=== PATIENT | female | born 1940 | race Caucasian/White ===

== ENCOUNTER → 2017-07-28 11:01 | Outpatient (CLI) | payer MEDICARE, SELFPAY ==
--- NOTE | 2017-07-28 11:28 | RAD_ITS ---
STUDY: X-RAY - LUMBAR SPINE REASON FOR EXAM: Female, 77 years old. Low back pain TECHNIQUE: 5 view(s) of the lumbar spine were obtained. COMPARISON: 11.01.12 FINDINGS: Normal lumbar lordosis. There is scoliosis. There is a normal alignment of the vertebrae. Stool throughout the colon. There is multilevel endplate spondylosis of the lumbar vertebrae. There is multi-level degenerative disc disease with multi-level disc space narrowing. There are atherosclerotic vascular calcifications. The soft tissue structures are unremarkable. RAD/L/S Spine Min 4 Views IMPRESSION: Degenerative changes of the spine, as detailed above. Electronically Signed: Jose D Levi MD at 16:56 EST , Service support ,
--- NOTE | 2017-07-28 11:28 | RAD_ITS ---
STUDY: X-RAY CHEST REASON FOR EXAM: Female, 77 years old. DYSPNEA TECHNIQUE: Frontal and lateral views of the chest. COMPARISON: 09/07/2012 FINDINGS: Chronic appearing increased interstitial lung markings. Bilateral apical fibrosis. Scoliosis of the thoracic spine. There is no demonstrated pleural abnormality. Normal heart size. Normal mediastinum and queenie. Normal visualized pulmonary arteries. There is atherosclerotic calcification of the aortic arch with tortuosity. There are diffuse demineralization changes of the visualized thoracic spine. There is degenerative osteoarthritis of the bilateral shoulders. There is no demonstrated abnormality of the visualized soft tissue structures of the upper abdomen. RAD/Chest PA and Lateral IMPRESSION: There are no acute findings. Electronically Signed: Jose D Levi MD at 16:56 EST , Service support ,
[2017-07-28 12:02] LABS: Absolute Lymphocyte Count 1.57 X10^3/ul (0.83-4.51); Absolute Neutrophil Count 2.3 X10^3/uL (2.0-7.7); Basophil# 0.05 X10^3/uL; Eosinophil# 0.21 X10^3/uL; Eosinophils% 4.3 % (0-5); Hematocrit 33.6 % (37-47); Lymphocyte # 1.57 X10^3/ul (4.0); Lymphocyte % 32.1 % (19-41); Mean Corp Hgb Conc 29.8 g/gl (32-36); Mean Corpuscular Volume 80.8 fL (81-99); Monocyte# 0.78 X10^3/uL; Neutrophil # 2.28 X10^3/uL (2.7-7.7); Neutrophil % 46.6 % (47-70); Platelet Count 447 K/mm3 (150-450); RBC Distribution Width CV 14.2 % (11.6-14.6); RBC Distribution Width SD 41.7 fl (35.1-43.9); Red Blood Count 4.16 M/mm3 (4.2-5.4); White Blood Count 4.9 K/mm3 (4.4-11.0)
[2017-07-28 12:03] LABS: POSITIVE COUNT NO; POSITIVE DIFFERENTIAL NO; POSITIVE MORPHOLOGY NO
[2017-07-28 12:42] LABS: Anion Gap 5 (5-15); BUN 11 mg/dL (7-18); BUN/Creat Ratio 16.4 RATIO (10-20); Calcium,Total 8.9 mg/dL (8.5-10.1); Chloride 105 mmol/L (98-107); Creatinine, Serum 0.67 mg/dL (0.55-1.02); EST Glomerular Filtration Rate 91 mL/min (>60); Est Glom Filt Rate - Afr Amer 110 mL/min (>60); Glucose 91 mg/dL (74-106); Magnesium 2.4 mg/dL (1.6-2.6); Potassium 3.4 mmol/L (3.5-5.1); Sodium Level 141 mmol/L (136-145); T4 Free Direct 1.06 ng/dL (0.76-1.46); Thyroid Stim Hormone (TSH) 1.62 uIU/mL (0.358-3.74)
[2017-07-28 13:41] LABS: Ferritin 6 ng/mL (8-252); Iron 19 ug/dL (50-170)
[2017-07-29 09:06] LABS: Vitamin D,25 Hydroxy 23.9 ng/mL (19.95-100.01)
== END ==
PROVIDERS: Family Provider Family Medicine; PCP Family Medicine; Visit Provider Family Medicine
DX: S32.000A Wedge compression fracture of unspecified lumbar vertebra, initial encounter for closed fracture (principal); R55 Syncope and collapse; R06.00 Dyspnea, unspecified; R00.2 Palpitations; M81.0 Age-related osteoporosis without current pathological fracture; D64.9 Anemia, unspecified
CPT/HCPCS: 36415; 71046; 72110; 80048; 82306; 82728; 83540; 83735; 84439; 84443; 85025

== ENCOUNTER → 2017-08-21 13:53 | Outpatient (CLI) | payer MEDICARE, SELFPAY ==
[2017-08-21 15:50] LABS: Absolute Lymphocyte Count 1.66 X10^3/ul (0.83-4.51); Basophil# 0.04 X10^3/uL; Basophil% 0.7 % (0-1); Eosinophil# 0.13 X10^3/uL; Eosinophils% 2.4 % (0-5); Hematocrit 32.4 % (37-47); Hemoglobin 9.4 g/dl (12.0-15.0); Lymphocyte # 1.66 X10^3/ul (4.0); Lymphocyte % 30.1 % (19-41); Mean Corpuscular Hgb 22.9 pg (27.0-32.0); Mean Corpuscular Volume 78.8 fL (81-99); Mean Platelet Vol. 9.4 fl (6.2-12.0); Monocyte# 0.64 X10^3/uL; Monocyte% 11.6 % (0-10); Neutrophil # 3.03 X10^3/uL (2.7-7.7); Platelet Count 363 K/mm3 (150-450); RBC Distribution Width CV 15.3 % (11.6-14.6); RBC Distribution Width SD 43.9 fl (35.1-43.9); Red Blood Count 4.11 M/mm3 (4.2-5.4); White Blood Count 5.5 K/mm3 (4.4-11.0)
[2017-08-21 15:56] LABS: POSITIVE COUNT NO; POSITIVE DIFFERENTIAL NO; POSITIVE MORPHOLOGY NO
[2017-08-21 16:01] LABS: Ferritin 6 ng/mL (8-252); Iron 19 ug/dL (50-170)
== END ==
PROVIDERS: Family Provider Family Medicine; PCP Family Medicine; Visit Provider Family Medicine
DX: D50.9 Iron deficiency anemia, unspecified (principal)
CPT/HCPCS: 36415; 82728; 83540; 85025

== ENCOUNTER 2017-11-12 09:00 | Outpatient (RCR) | payer MEDICARE, SELFPAY ==
--- NOTE | 2017-09-10 13:33 | HP.PTEVAL ---
Patient's Visit Information SAPNA GASCA is a 77 year old F referred to Physical Therapy by MD IRMA Terrazas with a diagnosis of CHRONIC LBP. Date of Evaluation: 09/10/17 Physical Therapist: Misti Camilo - Visit Plan Frequency: 2-3x /Week Duration: 4-6 Weeks Plan: *OSTEOPOROSIS*. NEXT 2 VISITS ON [place] FOR LOW BACK US AND STM TREATMENTS WITH INTRO TO DLS TOLERATED AND POSTURE CORRECTION/STRENGTHENING, INSTRUCTION IN APPROPRIATE BODY MECHANICS AND ACTIVITY MODIFICATIONS. DLS STARTING WITH A NEUTRAL SPINE PROGRESSING ROM TOLERATED. BEATRICE LE ROM, STRETCHING AND STRENGTHENING. HEP INSTRUCTION. AQUATIC THERAPY STARTING 3RD FOLLOW UP VISIT. PATIENT IS AGREEABLE TO THIS POC. SHE IS HARD OF HEARING. IT HELPS HER TO HEAR BETTER IF YOU FACE HER WHEN SPEAKING BUT SHOUTING DOES NOT HELP. - Subjective Subjective: Diagnosis: CHRONIC LOW BACK PAIN. Work/Leisure: RETIRED. DOES VOLUNTEER WORK ABOUT 20 HOURS A WEEK. Disability: NO. Present symptoms: BEATRICE LOW BACK PAIN LEFT > RIGHT. Present since: ABOUT 15 YEARS. Pain Scale: WORST 10/10, LEAST 2/10. Currently: 01/22. Commenced as a result of: LIFTING MOWER DECK. Symptoms at onset: LOW BACK. Worse: BAKING COOKIES, HOUSEWORK, VACUUMING, LEANING OVER, LIFTING, GARDENING, WALKING. Better: IBUPROFEN, ASPIRIN, LYING ON THE FLOOR. Disturbed sleep: YES. Previous history/Previous treatment: PHYSICAL THERAPY, HOME EX'S, CREAM, IBUPROFEN. NO INJECTIONS. NO BACK SURGERY. NO CHIROPRACTOR. NO MASSAGE THERAPY. Coughing/sneezing/straining: NE. Gait: INDEP GAIT SHORT DISTANCES WITHOUT AD. Difficulty initiating urinatin: NO. Accidents: NO. Unexplained weight loss: NO. Imaging: RECENT LUMBAR IN JUL 2017 - Normal lumbar lordosis. There is scoliosis. There is a normal alignment. of the vertebrae. Stool throughout the colon. There is multilevel endplate spondylosis of the lumbar vertebrae. There is. multi-level degenerative disc disease with multi-level disc space. narrowing. PMH: OSTEOPOROSIS - PATIENT STATES UNREMARKABLE OTHERWISE. Recent major surgery: NO. OTHER: PATIENT IS HARD OF HERARING. PATIENT REPORTS SHE HAS NOT HAD THIS MUCH PAIN IN HER BACK SINCE SHE ORIGINALLY HURT HER BACK 15 YEARS AGO. SHE RELATES THE RECENT INCREASE IN HER PAIN TO DOING A LOT AROUND THE HOUSE TO GET READY FOR [employer]. SHE REPORTS SHE IS TAKING A LOT OF IBUPROFEN AND IT JUST ISN'T GIVING HER ANY RELIEF. SHE STATES SHE SAW DR. TORO LAST MONTH WHEN SHE WAS DEALING WITH HER NORMAL LBP BUT THIS MORNING WHEN SHE WOKE UP SHE COULD BARELY GET OUT OF BED. - Objective Sitting Posture: POOR WITH FORWARD HEAD AND ROUNDED SHOULDERS. Standing Posture: POOR WITH INCREASED TRUNK FLEXION. Lordosis: REDUCED. Lateral shift: NO. Relevant shift: N/A. Active Correction of posture: WORSE BUT BETTER WITH PASSIVE SUPPORT. Other Observations: INDEP GAIT INTO PT WITHOUT AD BUT WITH INCREASED TRUNK FLEXION AND DECREASED BEATRICE STRIDE LENGTH ALTHOUGH GOOD CADANCE. Motor deficit: BEATRICE LE STRENGTH 5/5 WITH MMT EXCEPT HIPS GRADED 4/5. Sensory deficit: BEATRICE LE LIGHT TOUCH SENSATION IS INTACT AND SYMMETRICAL. ROM deficit: BEATRICE LE HS, HIP FLEX AND CALF TIGHTNESS. Reflexes: 2/3 BEATRICE LE'S. Dural Signs: POSITIVE BEATRICE LE'S. Lumbar mvmt loss: flex - MOD. ext - JEN. R SG - JEN. L SG - JEN. PATIENT WITH C/O INCREASED LBP WITH LUMBAR ROM TESTING ALL PLANES. Core strength: POOR. Palpation: PATIENT IS NOT TENDER WITH PALPATION OF THE THORACIC OR LUMBAR SPINE BUT SHE HAS INCREASED MUSCLE TONE OF PARASPINALS THROUGHOUT. OTHER: ALTHOUGH PATIENT IS HARD OF HEARING WE COMMUNICATED VERY EASILY TODAY WITHOUT ME NEEDING TO SHOUT. - Goals Goal 1:: DECREASE C/O LOW BACK PAIN Goal Time Frame: 4-6 Weeks Goal 2:: IMPROVE PERSONAL CARE, LIFITNG, WALKING, SITTING, STANDING, SLEEP, AND HOMEMAKING FUNCTION Goal Time Frame: 4-6 Weeks Goal 3:: INSTRUCT IN PROPHYLAXIS Goal Time Frame: 4-6 Weeks - Rehabilitation Potential Rehabilitation Potential: Fair - Anticipated Interventions Patient/Client Instruction: Educate patient on: Condition, Plan of Care, Risk Factors, Benefits of Fitness Program For the Purpose of:: To improve self management Therapeutic Exercise to Include: Strength training, Balance training, Body mechanics, Postural training, Gait and locomotor training, In an aquatic setting, Dynamic Lumbar Stabilization For the Purpose of:: To improve ability of physical actions for home/community/work/leisure Manual Therapy Techniques to Include: Soft tissue mobilization For the Purpose of:: To decrease pain, To decrease swelling/inflammation, To increase ROM, To improve nutrient delivery to tissue Thermo therapy (hot pack): Yes Ultrasound (thermal/non thermal): Yes For the Purpose of:: To decrease pain, To decrease swelling/inflammation, To increase ROM, To improve nutrient delivery to tissue Thank you for the opportunity to evaluate your patient. For Medicare and Medicare HMO plans, please review the plan of care and approve it. It will need to be FAXED BACK to us at [phone] for Medicare purposes. Please let me know if there are questions or concerns regarding this plan of care. Physician Signature: Date:
--- NOTE | 2017-10-08 09:31 | HP.PTREVAL_ITS ---
Jose Covarrubias MD, It has been my pleasure to treat SAPNA GASCA over the last 9 visits for CHRONIC LBP. Please see the progress note below for an update on the physical therapy plan of care! Subjective: PATIENT REPORTS SHE IS HAVING LESS PAIN OVER-ALL. PATIENT REPORTS THERAPY HAS RELIEVED A LOT OF THE PAIN. PATIENT REPORTS SHE IS NOW ABLE TO ABOLISH THE PAIN AT TIMES JUST WITH POSTURE CORRECTION. I WOULD LOVE TO DO MORE THERAPY. PATIENT REPORTS SHE LOOKS FORWARD TO THE SESSIONS AND WANTS TO SEE IF SHE CAN MAKE MORE IMPROVEMENT. Objective/Function: PATIENT IS MAKING PROGTRESS TOWARD ALL PT GOALS. UPON EXAM : Lumbar mvmt loss: flex - NIL. ext - MOD. R SG - MOD. L SG - MOD. PATIENT WITH C/O INCREASED LBP WITH LUMBAR ROM TESTING ALL PLANES BUT PAIN IS LESS AND ROM HAS IMPROVED. Core strength: POOR. LUMBAR OSWESTRY SCORE HAS IMPROVED FROM 24 TO 19. PATIENT IS A GOOD CANDIDATE TO CONTINUE AQUATIC THERAPY. PATIENT REPORTS SHE IS THRILLED THAT I AM RECOMMENDING MORE PT. Plan Plan: CONT AQUATIC THERAPY PER ORIGINAL POC AND WORKING TOWARD THE SAME GOALS. PATIENT IS AGREEABLE. Goals Goal 1:: DECREASE C/O LOW BACK PAIN Goal Time Frame: 4-6 Weeks Goal Progress: Progressing Goal 2:: IMPROVE PERSONAL CARE, LIFITNG, WALKING, SITTING, STANDING, SLEEP, AND HOMEMAKING FUNCTION Goal Time Frame: 4-6 Weeks Goal Progress: Progressing Goal 3:: INSTRUCT IN PROPHYLAXIS Goal Time Frame: 4-6 Weeks Goal Progress: Progressing Anticipated Interventions Patient/Client Instruction: Educate patient on: Condition, Plan of Care, Risk Factors, Benefits of Fitness Program For the Purpose of:: To improve self management Therapeutic Exercise to Include: Strength training, Balance training, Body mechanics, Postural training, Gait and locomotor training, In an aquatic setting, Dynamic Lumbar Stabilization For the Purpose of:: To improve ability of physical actions for home/community/ work/leisure Manual Therapy Techniques to Include: Soft tissue mobilization For the Purpose of:: To decrease pain, To decrease swelling/inflammation, To increase ROM, To improve nutrient delivery to tissue Thermo therapy (hot pack): Yes Ultrasound (thermal/non thermal): Yes For the Purpose of:: To decrease pain, To decrease swelling/inflammation, To increase ROM, To improve nutrient delivery to tissue Please do not hesitate to contact me at [phone] by phone or Fax: if you have questions or concerns regarding this new plan of care! Sincerely, Misti Camilo
--- NOTE | 2017-11-12 13:49 | HP.PTDCSUM ---
HP - PT D/C Summary It has been my pleasure to treat SAPNA GASCA under orders from Jose Covarrubias MD, for the diagnosis of CHRONIC LBP for a total of 18 visit(s). Discharge Date: 11/12/17 Please see the following information for a summary of their discharge status. - Subjective Subjective: PATIENT REPORTS THAT THE WATER THERAPY HAS BEEN THE BEST. PATIENT STATES THAT SHE IS FEELING BETTER PHYSICALLY. PATIENT REPORTS SHE DOES STILL HAVE TO TAKE IBUPROFEN FOR THE PAIN AND THE PAIN STILL GETS UP TO 8 OR 9/10 AT TIMES. PATIENT REPORTS THAT WHEN SHE RESTS NOW SHE HAS LESS PAIN THAN USUAL FOR HER. PATIENT REPORTS SHE FEELS LIKE SHE HAS REALLY LEARNED A LOT AND AT THIS POINT SHE WOULD LIKE TO TRY TO CONTINUE THE WATER EX'S ON HER OWN AT THE [facility]. SHE HAS CHECKED WITH THE POOL IN [place] AND THEY HAVE OPEN POOL HOURS THAT SHE CAN USE. - Pain Lumbar Spine Pain Intensity (Out of 10): 3 L hip Pain Intensity (Out of 10): 3 - Overall Improvement % Improvement: 35 - Objective Objective/Function: PATIENT HAS CONTINUED TO MAKE PROGRESS IN TERMS OF PAIN AT LEAST AT REST AND WITH PRE IN THE POOL. SHE IS INDEP WITH A POOL PROGRAM. UPON EXAM: Lumbar mvmt loss: flex - NIL. ext - MOD. R SG - MOD. L SG - MOD. PATIENT WITHOUT C/O INCREASED LBP WITH LUMBAR ROM TESTING ALL PLANES TODAY. NO SIGNIFICANT CHANGE IN LE ROM, SENSATION OR STRENGTH WITH TESTING TODAY COMPARED TO INITIAL EVAL. LUMBAR OSWESTRY SCORE HAS IMPROVED FROM 19 TO 18. - Goals Goal 1:: DECREASE C/O LOW BACK PAIN Goal Progress: Progressing Goal 2:: IMPROVE PERSONAL CARE, LIFITNG, WALKING, SITTING, STANDING, SLEEP, AND HOMEMAKING FUNCTION Goal Progress: Progressing Goal 3:: INSTRUCT IN PROPHYLAXIS Goal Progress: Goal Met - Plan Plan: D/C TO INDEP WATER EX. AND HEP. PATIENT IS AGREEABLE. - D/C Information If there are questions or concerns regarding this patient's physical therapy, please feel free to call me at [phone]. Thank you for the referral of this patient. Sincerely, Misti Camilo
== END 2017-11-12 19:00 | disposition home or self-care (01) ==
LOC: PT 09:00
PROVIDERS: Family Provider Family Medicine; PCP Family Medicine; Visit Provider Family Medicine
DX: M54.5 Low back pain (principal); G89.29 Other chronic pain
CPT/HCPCS: 97035; 97110; 97113; 97162; 97530

== ENCOUNTER 2017-12-29 14:07 | Inpatient (IN) | payer MEDICARE, SELFPAY ==
[2017-12-29 14:12] VITALS: BP 149/62; PULSE 73; RESP 16; TEMP 36.8; O2SAT 94; BMI 25.2
--- NOTE | 2017-12-29 14:26 | RAD_ITS ---
STUDY: X-RAY - PELVIS AND LEFT HIP REASON FOR EXAM: Female, 77 years old. Deformity and pain following a fall. TECHNIQUE: Radiological exam, hip, unilateral, with pelvis when performed; 2 or 3 views. COMPARISON: None. FINDINGS: Nondisplaced impacted intertrochanteric fracture. RAD/Hip 2-3 Views with Pelvis IMPRESSION: Nondisplaced impacted intertrochanteric fracture of the proximal left femur. Electronically Signed: Luke Kumar MD at 15:25 EDT Tel [phone], Service support ,
[2017-12-29] MEDS: Morphine 4 MG/ML Syringe IV ×2 (14:43→16:19)
--- NOTE | 2017-12-29 15:01 | RAD_ITS ---
STUDY: X-RAY CHEST REASON FOR EXAM: Female, 77 years old. Preoperative evaluation. Left hip fracture. TECHNIQUE: Single AP portable view of the chest. COMPARISON: Comparison is made with prior study dated July 28, 2017. FINDINGS: Hyperinflation. Stable calcified granuloma in the left upper lobe. There is no demonstrated pleural abnormality. Normal size heart. Normal mediastinum and queenie. Normal visualized pulmonary arteries. There is atherosclerotic calcification of the aortic arch with tortuosity. There are degenerative changes of the visualized thoracic spine. Normal visualized ribs, clavicles, and shoulders. There is no demonstrated abnormality of the visualized soft tissue structures of the upper abdomen. RAD/Chest 1 View (Portable) IMPRESSION: Hyperinflation. No acute abnormality is seen. Electronically Signed: Luke Kumar MD at 15:24 EDT Tel [phone], Service support ,
--- NOTE | 2017-12-29 15:55 | EKG12_ITS ---
Test Reason : PREOP Blood Pressure : / mmHG Vent. Rate : 078 BPM Atrial Rate : 078 BPM P-R Int : 156 ms QRS Dur : 084 ms QT Int : 406 ms P-R-T Axes : 069 -06 069 degrees QTc Int : 462 ms Normal sinus rhythm Septal infarct , age undetermined Abnormal ECG Confirmed by DEREK SÁNCHEZ, FATEMEH ([id number]), editor producer MICHAEL CORLEY ([id number]) on 01/01/2018 1:27:11 PM Referred By: DANITZA Confirmed By:FATEMEH REED MD
--- NOTE | 2017-12-29 16:04 | ED.VISSUMM ---
- ER Visit Summary Date of Service: 12/29/17 Chief Complaint: Left hip pain History of Present Illness: The patient is a 77 F who presents with left hip pain that began after a fall today. 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 Patient states the horse became spooked and knocked her to the ground. Patient states she landed on her left side. Patient states she was unable to ambulate after the fall. Patient denies any head injury or loss of consciousness. Patient denies any paresthesias or weakness. Patient states the pain is worse with any movement. Patient denies any other injuries. Physical Examination: Vital signs are stable. Patient is afebrile. Patient is in no acute distress. Oral mucosa is pink and moist. Neck is supple. There is no JVD noted. Heart was regular rate and rhythm. Lungs are clear and equal bilaterally. There is good respiratory effort noted. Abdomen is soft. Bowel sounds are normal. There is no tenderness noted. Musculoskeletal exam reveals tenderness over the left hip. The left lower extremity is shortened and externally rotated. Pedal pulses are equal bilateral. There are no sensory deficits noted. The remaining physical exam is within normal limits. Test Results: X-rays of the left hip reveal a basicervical fracture of the left hip. Chest x-ray was obtained. There is no acute cardiopulmonary process. EKG showed a normal sinus rhythm with a rate of 78. There are no acute ST or T-wave changes. A CBC and comprehensive metabolic profile were obtained and are pending. Emergency Department Course and Treatment: Case was discussed with Dr. Pugh. She recommended admitting the patient to the hospitalist group. Case was discussed with Dr. Wick. He will admit the patient to his service. Disposition: Admit to hospital Impression: Basicervical fracture left hip This note was generated with Friendsee dictation software. It may contain incorrect words, spelling, and punctuation that were not noted in review of the chart prior to signing ED Disposition - Plan for ED Patient: Disposition: Acute Care Hospital [facility] Chief Complaint: Lower Extremity Injury Diagnosis: Fracture of hip, left, closed Referrals: Care Physician,No Primary [Primary Care Provider] -
--- NOTE | 2017-12-29 16:11 | ED.DCSUM_ITS ---
- ER Visit Summary Date of Service: 12/29/17 Chief Complaint: Left hip pain History of Present Illness: The patient is a 77 F who presents with left hip pain that began after a fall today. Patient states she saw a miniature horse in the street and she attempted to find the supervisor general. Patient states the horse became spooked and knocked her to the ground. Patient states she landed on her left side. Patient states she was unable to ambulate after the fall. Patient denies any head injury or loss of consciousness. Patient denies any paresthesias or weakness. Patient states the pain is worse with any movement. Patient denies any other injuries. Physical Examination: Vital signs are stable. Patient is afebrile. Patient is in no acute distress. Oral mucosa is pink and moist. Neck is supple. There is no JVD noted. Heart was regular rate and rhythm. Lungs are clear and equal bilaterally. There is good respiratory effort noted. Abdomen is soft. Bowel sounds are normal. There is no tenderness noted. Musculoskeletal exam reveals tenderness over the left hip. The left lower extremity is shortened and externally rotated. Pedal pulses are equal bilateral. There are no sensory deficits noted. The remaining physical exam is within normal limits. Test Results: X-rays of the left hip reveal a basicervical fracture of the left hip. Chest x-ray was obtained. There is no acute cardiopulmonary process. EKG showed a normal sinus rhythm with a rate of 78. There are no acute ST or T- wave changes. A CBC and comprehensive metabolic profile were obtained and are pending. Emergency Department Course and Treatment: Case was discussed with Dr. Pugh. She recommended admitting the patient to the hospitalist group. Case was discussed with Dr. Wick. He will admit the patient to his service. Disposition: Admit to hospital Impression: Basicervical fracture left hip This note was generated with IQMS dictation software. It may contain incorrect words, spelling, and punctuation that were not noted in review of the chart prior to signing ED Disposition - Plan for ED Patient: Disposition: Acute Care Hospital [facility] Chief Complaint: Lower Extremity Injury Diagnosis: Fracture of hip, left, closed Referrals: Care Physician,No Primary [Primary Care Provider] -
[2017-12-29 16:21] VITALS: BP 158/86; PULSE 76; RESP 18; O2SAT 99
[2017-12-29 16:24] LABS: Absolute Lymphocyte Count 1.51 X10^3/ul (0.83-4.51); Absolute Neutrophil Count 4.3 X10^3/uL (2.0-7.7); Basophil# 0.03 X10^3/uL; Basophil% 0.4 % (0-1); Eosinophil# 0.14 X10^3/uL; Eosinophils% 2.1 % (0-5); Hematocrit 37.3 % (37-47); Hemoglobin 12.3 g/dl (12.0-15.0); Lymphocyte # 1.51 X10^3/ul (4.0); Lymphocyte % 22.5 % (19-41); Mean Corpuscular Hgb 30.4 pg (27.0-32.0); Mean Corpuscular Volume 92.1 fL (81-99); Mean Platelet Vol. 8.8 fl (6.2-12.0); Monocyte# 0.77 X10^3/uL; Monocyte% 11.5 % (0-10); Neutrophil # 4.26 X10^3/uL (2.7-7.7); Neutrophil % 63.4 % (47-70); Platelet Count 292 K/mm3 (150-450); RBC Distribution Width CV 13.7 % (11.6-14.6); RBC Distribution Width SD 44.7 fl (35.1-43.9); Red Blood Count 4.05 M/mm3 (4.2-5.4); White Blood Count 6.7 K/mm3 (4.4-11.0)
[2017-12-29 16:27] LABS: POSITIVE COUNT NO; POSITIVE DIFFERENTIAL NO; POSITIVE MORPHOLOGY NO
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
[2017-12-29 16:39] LABS: ALB/GLOB Ratio 1.3 RATIO (0.9-2.4); AST(SGOT) 28 U/L (15-37); Alanine Aminotransfer ALT/SGPT 30 U/L (13-56); Albumin, Serum 3.8 g/dL (3.2-5.0); Alkaline Phosphatase 68 U/L (45-117); Anion Gap 8 (5-15); BUN 10 mg/dL (7-18); BUN/Creat Ratio 13.6 RATIO (10-20); Calcium,Total 8.3 mg/dL (8.5-10.1); Chloride 110 mmol/L (98-107); Creatinine, Serum 0.74 mg/dL (0.55-1.02); EST Glomerular Filtration Rate 81 mL/min (>60); Est Glom Filt Rate - Afr Amer 98 mL/min (>60); Estimated Creatinine Clearance 41.33 ml/min; Globulin 2.9 g/dL (2.2-4.2); Glucose 94 mg/dL (74-106); Potassium 3.3 mmol/L (3.5-5.1); Protein, Total 6.7 g/dL (6.4-8.2); Sodium Level 147 mmol/L (136-145)
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
--- NOTE | 2017-12-29 16:51 | CM.ED ---
Social Work Note Into complete initial assessment as pt will be admitted. Introduced self and role at [facility]. The pt is accompanied by a witness of the incident. Pt was trying to find the video systems engineer of a loose pony and was holding the bridle when the horse reared up and the pt fell while holding onto the bridle. She has not contacted family at this time, but states that she will. She lives alone in a three story home and does not have a one level setup. States that she will talk with her family to see what arrangements can be made. Educate her to community SNF's and TCU. Pt states that she will see how she is doing. Explain that after her surgery she will be evaluated by PT/OT and they will make a recommendation. Understanding expressed. Pt denies any further needs at this time. SW on assigned unit to f/u with discharge planning. Rubina Sprague, TRAY SERVER, HOUSE WRECKER
[2017-12-29 17:15] VITALS: BP 177/78; PULSE 70; RESP 14; O2SAT 96
[2017-12-29] MEDS: Morphine 2 MG/ML Syringe IV (18:05)
[2017-12-29 18:07] VITALS: BMI 25.2
[2017-12-29 18:16] VITALS: BP 149/79; PULSE 70; RESP 16; TEMP 37.2; O2SAT 99
[2017-12-29 18:28] VITALS: BMI 24.0
[2017-12-29] MEDS: 0.9% NaCl Peripheral Flush Adult/Peds IV ×2 (20:00→23:46)
[2017-12-29] MEDS: HYDROmorphone 0.5 MG/0.5 ML SYRINGE IV (20:00)
[2017-12-29 22:32] VITALS: BMI 24.0
[2017-12-29] MEDS: HYDROmorphone 1 MG/ML Syringe IV (23:46)
[2017-12-30] VITALS (17 sets, daily range): BP systolic 102–162; BP diastolic 51–96; PULSE 58–102; RESP 16–20; TEMP 36.7–37.2; O2SAT 89–100; BMI 23.8; BMI 25.2
[2017-12-30] MEDS: oxyCODONE 5 MG Tablet PO (01:32)
[2017-12-30] MEDS: HYDROmorphone 0.5 MG/0.5 ML SYRINGE IV ×2 (02:38→14:04)
[2017-12-30] MEDS: 0.9% NaCl Peripheral Flush Adult/Peds IV ×2 (02:39→07:19)
[2017-12-30 06:59] LABS: Absolute Lymphocyte Count 1.82 X10^3/ul (0.83-4.51); Absolute Neutrophil Count 4.1 X10^3/uL (2.0-7.7); Basophil# 0.02 X10^3/uL; Basophil% 0.3 % (0-1); Eosinophil# 0.14 X10^3/uL; Hematocrit 36.8 % (37-47); Lymphocyte # 1.82 X10^3/ul (4.0); Lymphocyte % 26.3 % (19-41); Mean Corp Hgb Conc 32.6 g/gl (32-36); Mean Corpuscular Hgb 30.3 pg (27.0-32.0); Mean Corpuscular Volume 92.9 fL (81-99); Mean Platelet Vol. 9.2 fl (6.2-12.0); Monocyte# 0.85 X10^3/uL; Monocyte% 12.3 % (0-10); Neutrophil # 4.07 X10^3/uL (2.7-7.7); POSITIVE COUNT NO; POSITIVE DIFFERENTIAL NO; POSITIVE MORPHOLOGY NO; Platelet Count 292 K/mm3 (150-450); RBC Distribution Width CV 13.6 % (11.6-14.6); RBC Distribution Width SD 45.1 fl (35.1-43.9); Red Blood Count 3.96 M/mm3 (4.2-5.4); White Blood Count 6.9 K/mm3 (4.4-11.0)
[2017-12-30 07:05] LABS: Anion Gap 7 (5-15); BUN 8 mg/dL (7-18); BUN/Creat Ratio 12.8 RATIO (10-20); Calcium,Total 8.3 mg/dL (8.5-10.1); Chloride 103 mmol/L (98-107); Creatinine, Serum 0.62 mg/dL (0.55-1.02); EST Glomerular Filtration Rate 99 mL/min (>60); Est Glom Filt Rate - Afr Amer 119 mL/min (>60); Estimated Creatinine Clearance 41.33 ml/min; Glucose 85 mg/dL (74-106); Sodium Level 140 mmol/L (136-145)
[2017-12-30 07:18] LABS: Thyroid Stim Hormone (TSH) 5.69 uIU/mL (0.358-3.74)
[2017-12-30] MEDS: HYDROmorphone 1 MG/ML Syringe IV ×3 (07:19→20:00)
--- NOTE | 2017-12-30 07:30 | PN_ITS ---
Patient Problems: Active and Suspected Problems (Last Reviewed 12/29/17 @ 16:37 by Gerson Wick DO) Fracture of hip, left, closed (Acute) Subjective: Patient with no acute events overnight per self and per nursing report. Patient is extremely hard of hearing but can read lips somewhat. She states that currently pain is controlled. Discussed plan for operative intervention to which she is amenable pending repeat potassium level with supplementation this morning. Family also present and discussed transition following with interest in acute rehab at [facility] primarily. Patient denies fevers, chills, nausea, emesis, abdominal pain, chest pain or dyspnea. Objective: Physical Examination: General: awake, alert, oriented x 3 and cooperative, laying in bed in no apparent distress currently, notes pain controlled currently, just awakening. Skin: normal color, turgor, no icterus, cyanosis. HEENT: AT/NC, EOMI, PERRLA, mildly dry MM, extremely hard of hearing despite hearing aid in place. Lungs: Diminished breath sounds bases, moderate effort, no rales, ronchi or wheezing. Heart: Regular rate and rhythm; no gallop, rub audible. Abdomen: soft, NTTP, ND, normal BS. Extremities: no cyanosis, clubbing, peripheral pulses intake, s/p fall w/ L hip fracture. Neurological: patient awake, alert, oriented x 3; cognitive function intact; pupils equally reactive to light and accomodation; cranial nerves II-XII grossly normal, moving all 4 extremities but deferred notable LLE movement secondary to recent fall w/ L hip fx, accordingly strength severely globally decreased. Psychiatric: affect appears normal, no acute evidence of depressive or anxiety feelings. Vitals/I&O's: Vital Signs Temp Pulse Resp BP Pulse Ox 98.1 F 58 L 16 148/76 H 100 12/30/17 00:16 12/30/17 00:16 12/30/17 00:16 12/30/17 00:16 12/30/17 00:16 Oxygen Delivery Method Room Air Weight: 139 lb 15.896 oz Body Mass Index (BMI) 24.0 Intake and Output for Last 24 Hours 12/28/17 12/29/17 12/30/17 23:59 23:59 23:59 Intake Total 1100 / 1100 Output Total 450 / 450 1275 / 1275 Balance -450 / -450 -175 / -175 Laboratory Results 12/29/17 19:40: Vitamin D 25-Hydroxy Pending 12/30/17 05:10: Blood Type Pending, Antibody Screen Pending 12/30/17 05:10: Magnesium 2.0, TSH 5.69 H 12/30/17 05:10: WBC 6.9, RBC 3.96 L, Hgb 12.0, Hct 36.8 L, MCV 92.9, MCH 30.3, MCHC 32.6, RDW 13.6, RDW Differential 45.1 H, Plt Count 292, MPV 9.2, Immature Gran % (Auto) 0.100, Neut % (Auto) 59.0, Lymph % (Auto) 26.3, [place] % (Auto) 12.3 H, Eos % (Auto) 2.0, Baso % (Auto) 0.3, Absolute Neuts (auto) 4.1, Absolute Lymphs (auto) 1.82, Total Counted Not Reportable 12/30/17 05:10: Sodium 140, Potassium 3.0 L, Chloride 103, Carbon Dioxide 30.0, Anion Gap 7, BUN 8, Creatinine 0.62, Estim Creat Clear Calc 41.33, Est GFR (MDRD ) Af Amer 119, Est GFR (MDRD) Non-Af 99, BUN/Creatinine Ratio 12.8, Glucose 85, Calcium 8.3 L Current Medications Acetaminophen (Tylenol) 650 mg PO Q6H PRN PRN PRN Reason: Mild Pain (1-3)/Temp > 100.7 F Ferrous Sulfate (Ferrous Sulfate) 325 mg PO DAILYCM SAUD Hydromorphone HCl (Dilaudid Inj) 0.5 - 1 mg IV Q3H PRN PRN PRN Reason: SEVERE PAIN (6-10/10) Last Admin: 12/30/17 02:38 Dose: 0.5 mg Hydromorphone HCl (Dilaudid Inj) 0.5 - 1 mg IV Q3H PRN PRN PRN Reason: SEVERE PAIN (6-10/10) Last Admin: 12/30/17 07:19 Dose: 1 mg Magnesium Hydroxide (Milk Of Magnesia) 30 ml PO DAILY PRN PRN PRN Reason: Constipation Ondansetron HCl (Zofran) 4 mg IV Q8H PRN PRN PRN Reason: NAUSEA Oxycodone HCl (Oxyir) 5 - 10 mg PO Q4H PRN PRN PRN Reason: MOD-SEVERE PAIN (4-10/10) Last Admin: 12/30/17 01:32 Dose: 10 mg Sodium Chloride () 5 - 30 ml IV UD PRN PRN Reason: SALINE FLUSH Last Admin: 12/30/17 07:19 Dose: 10 ml Medical Necessity - Tobacco Use Smoking Status: Never smoker Tobacco Use: Non-smoker Assessment/Plan All Active Problems (Last Reviewed 12/29/17 @ 16:37 by Gerson Wick DO) Fracture of hip, left, closed (Acute) The patient is a 77 y/o F w/ PMHx: GERD, Chronic back pain, OA/OP, Fe Deficiency Anemia, Hard of Hearing who presents to the [facility] ED on (1) General debility, L hip pain s/p mechanical fall w/ nondisplaced impacted intertrochanteric fracture of the proximal left femur: Plain film noting displaced impacted intertrochanteric fracture of the proximal left femur. CXR unremarkable. Orthopedic surgery consulted from ED. Admitted to DE, maintain NPO , continue gentle IVFs, TSH mildly elevated w/ pending FT4, Mag level normal, ICa, UA/UCx pending, rosario placement, monitor I/Os, frequent positioning, fall precautions. Pain, anti-emetic regimen. PT/OT following operative intervention. CM consulted for discharge planning. Already evaluated for transition to operative intervention, cleared, currently awaiting repeat potassium =/>3.4 per anesthesia. (2) Hypokalemia: Admission K+ 2.3, repeat level 3, oral supplementation given, repeat level went from noon prior to operative intervention. Discussion with nursing staff with anesthesia will need potassium level 3.4 or above to proceed with operative intervention today. (3) Anemia, Fe Deficiency: Admission Hgb 12.3, normocytic, continue Fe supplementation, trend. T+C 2 units noted for OR. (4) Elevated TSH: TSH 5.69, FT4 pending. (5) GERD: Famotidine. (6) DVT Prophylaxis: SCDs, deferred current chemoprophylaxis for planned OR today, restart following. (7) CODE status: Discussed CODE status at length including difference between FULL code, DNR-CCA and DNR-CC status. Following discussions about the differences in these status, noted FULL CODE. Advanced Care Planning Face to Face Time: 17 minutes. Code Visit Inpatient E&M: 16691 Subs Hosp L2 Procedures: 27436 Advncd Care Plan 30 Min
[2017-12-30] MEDS: 0.9% Normal Saline 1,000 ML 75 ML IV ×2 (08:11→19:49)
[2017-12-30] MEDS: Ferrous Sulfate 325 MG Tablet PO (08:17)
[2017-12-30 08:57] LABS: Vitamin D,25 Hydroxy 51.8 ng/mL (29.95-100.01)
[2017-12-30 09:13] LABS: T4 Free Direct 1.17 ng/dL (0.76-1.46)
--- NOTE | 2017-12-30 09:25 | CASEMGMT ---
Addendum entered by Katty Conley 12/30/17 10:41: TEGAN met with pt. Pt hard of hearing. Pt's son present in room. SW introduced self and role at [facility]. TEGAN informed pt and pt's son that [facility] doesn't have any beds available at this time and this worker is unsure of any discharges. Pt and pt's son state understanding. TEGAN provided pt and pt's son with list of in network facilities with pt's insurance as typically pt needs rehabilitation after hip fracture before returning home. Pt and pt's son states understanding. SW informed pt and pt's son that pt is scheduled to have surgery today and that this worker will wait for PT/OT to evaluate pt after surgery to determine discharge plans. Pt and pt's son states understanding and denied additional needs or concerns at this time. Original Note: Social Work Note SW received note from CAMDEN Tate stating that pt wants inpatient rehab at discharge. TEGAN placed a call to [facility] with [facility] to determine bed availability. As of yesterday, [facility] stated that she had no beds available on . SW is scheduled for surgery today and this worker will follow up with pt once this worker receives call from [facility] regarding bed availability. Plan: TBD Katty Conley SALES AND LEASING AGENT, TRANSITIONAL CARE NURSE
--- NOTE | 2017-12-30 10:43 | PCM.CONS.GEN ---
Reason for Consult Date of Consultation: 12/30/17 History of Present Illness: The patient is a 77 year old F with a mechanical fall this yesterday at her home and fell onto her left side. Patient is hard of hearing family at bedside today during discussion. Patient states pain localized to her left hip only no knee pain ankle pain no head trauma no numbness tingling or other constitutional symptoms. Patient's left leg is shortened and externally rotated. Patient was brought to the emergency room and x-rays confirmed a left intertrochanteric or so was consulted. [] Past Medical History Medical History: Medical History (Last Reviewed 12/29/17 @ 16:37 by Gerson Wick DO) Osteoporosis M81.0 Acid reflux K21.9 Anemia D64.9 Back problem M53.9 Fatigue R53.83 Allergies No Known Allergies Allergy (Unverified 07/30/17 10:43) Home Medications: Ambulatory Orders Medication Instructions Recorded Cholecalciferol (Vitamin D3) 5,000 unit PO DAILY 12/29/17 [Vitamin D3] Ferrous Sulfate [Iron] 325 mg PO BID 12/29/17 Lives: Alone Smoking Status: Never smoker Tobacco Use: Non-smoker Alcohol: Rare Drugs: None - *Family History Sibling Family History: Family History (Last Reviewed 12/29/17 @ 16:38 by Gerson Wick DO) Grandmother Colon cancer Father Colon cancer Heart disease Hypertension Brother Colon cancer Heart disease Mother Heart disease High cholesterol Review of Systems Constitutional: Denies: Chills, Fever, Weight Change HEENT: Reports: Hard of Hearing. Denies: Head Aches, Sinus Congestion, Sinus Drainage Cardiovascular: Denies: Chest Pain, Palpitations Respiratory: Denies: Cough, Shortness of breath at rest, Sputum production Gastrointestinal: Denies: Abdominal Pain, Nausea, Vomiting Genitourinary: Denies: Dysuria Musculoskeletal: Reports: Joint Pain, Joint Tenderness Skin: Denies: Rash, Wounds Neurological: Denies: Numbness, Tingling, Focal weakness Psychiatric: Denies: Anxiety, Depression, Homicidal Ideations, Suicidal Ideations Hematologic/ Lymphatic: Denies: Easy Bruising, Easy Bleeding Patient Problems: Active and Suspected Problems (Last Reviewed 12/29/17 @ 16:37 by Gerson Wick DO) Fracture of hip, left, closed (Acute) - Physical Exam General: Alert - Left lower extremity Rotated, sensation grossly intact compartments soft active range of motion passive range of motion of ankles intact bilaterally lower extremity, secondary survey negative, Oriented x3, Cooperative HEENT: Atraumatic, PERRLA, EOMI, Normocephalic Neck: Supple, No JVD, Negative Carotid Bruits Lungs: Clear to auscultation, Normal air movement Cardiovascular: Regular rate, No murmurs Abdomen: Bowel Sounds Present, Soft, Non Tender Extremities: No edema, Capillary Refill Less than 3 Seconds Skin: No rashes, No breakdown Musculoskeletal: No Tenderness to Palpation of Joints or Extremities Neurological: Cranial nerves II-XII grossly intact Psych/Mental Status: Normal Affect, Appropriate Vital Signs Temp Pulse Resp BP Pulse Ox 98.3 F 68 18 125/63 H 100 12/30/17 07:45 12/30/17 07:45 12/30/17 07:45 12/30/17 07:45 12/30/17 07:45 Oxygen Delivery Method Room Air Weight: 139 lb 15.896 oz Body Mass Index (BMI) 24.0 Intake and Output for Last 24 Hours 12/28/17 12/29/17 12/30/17 23:59 23:59 23:59 Intake Total 1100 / 1100 Output Total 450 / 450 1275 / 1275 Balance -450 / -450 -175 / -175 Laboratory Tests Past 24 Hrs 12/29/17 12/30/17 12/30/17 19:40 05:10 05:10 WBC RBC Hgb Hct MCV MCH MCHC RDW RDW Differential Plt Count MPV Immature Gran % (Auto) Neut % (Auto) Lymph % (Auto) [place] % (Auto) Eos % (Auto) Baso % (Auto) Absolute Neuts (auto) Absolute Lymphs (auto) Total Counted Sodium Potassium Chloride Carbon Dioxide Anion Gap BUN Creatinine Estim Creat Clear Calc Est GFR (MDRD) Af Amer Est GFR (MDRD) Non-Af BUN/Creatinine Ratio Glucose Calcium Magnesium 2.0 Vitamin D 25-Hydroxy 51.8 TSH 5.69 H Free T4 Blood Type A NEGATIVE Antibody Screen POSITIVE H Antibody Identification ANTI-E Antigen Identification Crossmatch 12/30/17 12/30/17 12/30/17 05:10 05:10 05:10 WBC 6.9 RBC 3.96 L Hgb 12.0 Hct 36.8 L MCV 92.9 MCH 30.3 MCHC 32.6 RDW 13.6 RDW Differential 45.1 H Plt Count 292 MPV 9.2 Immature Gran % (Auto) 0.100 Neut % (Auto) 59.0 Lymph % (Auto) 26.3 [place] % (Auto) 12.3 H Eos % (Auto) 2.0 Baso % (Auto) 0.3 Absolute Neuts (auto) 4.1 Absolute Lymphs (auto) 1.82 Total Counted Not Reportable Sodium 140 Potassium 3.0 L Chloride 103 Carbon Dioxide 30.0 Anion Gap 7 BUN 8 Creatinine 0.62 Estim Creat Clear Calc 41.33 Est GFR (MDRD) Af Amer 119 Est GFR (MDRD) Non-Af 99 BUN/Creatinine Ratio 12.8 Glucose 85 Calcium 8.3 L Magnesium Vitamin D 25-Hydroxy TSH Free T4 Blood Type Antibody Screen Antibody Identification Antigen Identification Crossmatch See Detail 12/30/17 12/30/17 05:10 05:10 WBC RBC Hgb Hct MCV MCH MCHC RDW RDW Differential Plt Count MPV Immature Gran % (Auto) Neut % (Auto) Lymph % (Auto) [place] % (Auto) Eos % (Auto) Baso % (Auto) Absolute Neuts (auto) Absolute Lymphs (auto) Total Counted Sodium Potassium Chloride Carbon Dioxide Anion Gap BUN Creatinine Estim Creat Clear Calc Est GFR (MDRD) Af Amer Est GFR (MDRD) Non-Af BUN/Creatinine Ratio Glucose Calcium Magnesium Vitamin D 25-Hydroxy TSH Free T4 1.17 Blood Type Antibody Screen Antibody Identification Antigen Identification E ANTIGEN - NEGATIVE Crossmatch Assessment/Plan All Active Problems (Last Reviewed 12/29/17 @ 16:37 by Gerson Wick DO) Fracture of hip, left, closed (Acute) Left hip in her troches fracture Discussed with family wrist benefits and alternatives surgery. Risks including but not limited to blood loss, blood clot, infection, neurovascular injury, failure procedure, loss of life and loss of limb. Patient has a located will be normalized prior to surgery. This was discussed with anesthesia as well. Family is aware of the risks associated with surgery she will be weightbearing tomorrow on the left hip provide we had good fixation. This is discussed as well. We discussed the risk of cut out need for revision surgery should be revised to the [place]-versus a total hip. Family is aware of this as well. [facility] on-call the OR Call with concerns [phone] Awaiting potassium at noon Surgery today if potassium normalized after replacement This note was generated with [employer] dictation software. It may contain incorrect words, spelling, and punctuation that were not noted in checking the note before signing.
[2017-12-30] MEDS: Famotidine 20 MG Tablet PO (11:02)
[2017-12-30 11:55] LABS: Mucous, Urine 0 SEEN /hpf (<or=2+)
[2017-12-30 12:08] LABS: Color, Urine Yellow (Yellow); Glucose, Dipstick Normal (Normal); Ketone-Dipstick 50 mg/dl (Negative); Leukocyte Esterase-Dipstick 500 /ul (Negative); Nitrite-Dipstick Negative (Negative); Occult Blood-Urine 250 /ul (Negative); Protein-Dipstick Negative (Negative); Urine Bilirubin Dipstick Negative (Negative); Urine Clarity Clear (Clear); Urine Urobilinogen Normal (Normal)
[2017-12-30 12:15] LABS: Bacteria 1+ /hpf (None Seen); Red Blood Cells-Urine 5-10 SEEN /hpf (0-5); Squamous Epithelial Cells - UA 0-5 SEEN /hpf (5-10); White Blood Cells 50-100 SEEN /hpf (0-5)
[2017-12-30 12:56] LABS: Potassium 3.4 mmol/L (3.5-5.1)
[2017-12-30] MEDS: DiphenhydrAMINE 50 MG/ML Syringe 12.5 MG IV ×2 (14:04→20:00)
--- NOTE | 2017-12-30 16:00 | RAD_ITS ---
STUDY: X-RAY -LEFT FEMUR REASON FOR EXAM: Female, 77 years old. Placement of internal fixation hardware. TECHNIQUE: 7 fluoroscopic spot images were provided. FLUOROSCOPY TIME: 72.7 seconds. COMPARISON: None. FINDINGS: Fluoroscopic images were submitted, as radiology support for c-arm imaging in the operating room. This is not a diagnostic examination. Images are for documentation purposes only. RAD/Hip Min 2 Views (Portable) IMPRESSION: As above. Electronically Signed: Augustin Cline MD at 0:22 EDT , Service support ,
[2017-12-30] MEDS: Mupirocin Ointment 22gm Tube 1 APPLIC (17:00)
--- NOTE | 2017-12-30 17:27 | OP.PCM_ITS ---
Report of Operation Date of Procedure: 12/30/17 Pre-Operative Diagnosis: left hip basicervical femoral neck fracture Post-Operative Diagnosis: same Surgery/Procedure Performed:: left hip cephalomedullary nailing ammonia operator: payal Type of Anesthesia:: General Anesthesiologist: Gerson Arita Estimated Blood Loss (mL): 150cc Fluids Replaced: see anesthesia chart Description of Procedure: Preoperative note Patient is a 77-year-old female who had a mechanical fall outside her home onto her left hip. Patient has stairs at home. Patient was seen in the emergency room noted to have a displaced left basicervical femoral neck fracture. Ortho consulted. Patient was seen and examined at bedside with family at bedside. Patient hard of hearing most of history obtained from family however patient complains of left hip pain no head trauma no loss of consciousness no numbness tingling fevers chills or other constitutional symptoms. We discussed risks for morbidity and mortality in the aged population after hip fracture also the risk of cut out and need for revision operation family is well aware and well aware that she will be going most likely to rehab for a while before she will be able to go home as she does have stairs at home and she lives by herself. Operative note Patient seen and examined preoperative holding area. Left hip was marked. Patient was brought to the operating room and placed supine on the operating room table. Sign in, consent, anesthesia, antibiotics were administered. Patient was placed in the hip distraction table with her contralateral limb well -padded and externally rotated and hip flexed to facilitate fluoroscopy. We then utilized fluoroscopy and the traction table to reduce her hip in both AP and lateral planes and visualize adequate reduction. After this was done we then did prepped and draped the left leg in normal standard fashion. Timeout was performed. We then use our guide wired to the tip of the greater trochanter standard technique using the Synthes system. Placed our guide wire to the lateral level of the lesser and confirmed in AP and lateral planes good placement of our starting hole. We then opened up the starting hole with the reamer and then placed our guide ball-tipped guidewire down the level of the suprapatella. We then measured the femur guidepin length to be 355 so we decided to place 340. we then started drilled reaming started with a 10 when it went up to a 12-1/2 sequentially. We then placed an 11 x 340 which was premeasured down the canal of her femur starting at the greater troches. We then placed her outrigger for our helical blade. We marked placement for incision over the lateral skin we then dissected down to the level IT band this was released as well we placed the trocar down to the lateral femoral cortex placed our guidepin up just inferior but center center into the head. We then measured this to be [address] our 90 helical blade. We then reamed 90 mm and then placed our helical blade tapping and sequentially utilizing fluoroscopy throughout the case. After we had good fixation of the femoral head with the blade we checked an AP and lateral planes good distance and then did reduce the fracture site a little bit by counter turning at the outrigger. We then removed the outrigger in standard technique irrigated the incision with copious amounts of sterile saline incisions were closed with interrupted deep 2-0 Vicryl and flakita. Sterile dressings were applied. Patient tolerated procedure well there were no complications. Patient transferred to recovery room in stable condition. Postoperative note Discussed with family in detail again risk of morbidity mortality risk of revision surgery as well as a long course for postoperative therapy and rehab and it could take longer than a year to relieve recuperate Ancef Xarelto SCDs Weight-bear as tolerated left leg Call with increased pain numbness tingling or further issues arise We will follow patient while she is here she is transferred to the TCU I will see the patient while she is in TCU here if now see her in my office in 2 weeks and 6 weeks postop There is any questions please do not hesitate to call This note was generated with Joppel dictation software. It may contain incorrect words, spelling, and punctuation that were not noted in checking the note before signing.
--- NOTE | 2017-12-30 18:20 | RAD_ITS ---
STUDY: X-RAY - PELVIS AND LEFT HIP REASON FOR EXAM: Female, 77 years old. Postop left hip. TECHNIQUE: Radiological exam, hip, unilateral, with pelvis, 4 views. The left femur is also demonstrated in this study. COMPARISON: 12/29/2017. FINDINGS: There is a non-specific bowel gas pattern. Normal visualized soft tissue structures. Normal bilateral iliac wings, sacroiliac joints and visualized sacrum. Normal bilateral superior and inferior pubic rami. Normal pubic symphysis. Normal bilateral ischial tuberosities. Patient is status post ORIF of a left intertrochanteric fracture with placement of a long intramedullary jorge a, and a proximal sliding screw. Hardware appears to be adequately seated and fracture is in adequate alignment. Normal visualized femoral head. Normal acetabulum. Normal hip joint. RAD/Hip Min 2 Views (Portable) IMPRESSION: Status post ORIF of a left intertrochanteric fracture, in adequate alignment. Electronically Signed: Augustin Cline MD at 0:24 EDT , Service support ,
[2017-12-30] MEDS: Cefazolin 1 GM/50 ML BAG IV (22:25)
[2017-12-31] MEDS: HYDROmorphone 0.5 MG/0.5 ML SYRINGE IV ×3 (00:13→21:45)
[2017-12-31 01:28] VITALS: BMI 25.2
[2017-12-31 03:28] VITALS: BP 112/52; PULSE 89; RESP 16; TEMP 37; O2SAT 100; BMI 25.2
[2017-12-31 03:45] VITALS: O2SAT 94
[2017-12-31] MEDS: Cefazolin 1 GM/50 ML BAG IV (05:44)
[2017-12-31] MEDS: 0.9% Normal Saline 1,000 ML 75 ML IV (05:44)
[2017-12-31] MEDS: Rivaroxaban 10 MG Tablet PO (05:45)
[2017-12-31] MEDS: oxyCODONE 5 MG Tablet PO ×4 (05:51→18:19)
[2017-12-31 06:31] LABS: Absolute Lymphocyte Count 1.35 X10^3/ul (0.83-4.51); Absolute Neutrophil Count 5.1 X10^3/uL (2.0-7.7); Basophil# 0.03 X10^3/uL; Basophil% 0.4 % (0-1); Eosinophil# 0.08 X10^3/uL; Hemoglobin 9.8 g/dl (12.0-15.0); Lymphocyte # 1.35 X10^3/ul (4.0); Lymphocyte % 17.6 % (19-41); Mean Corp Hgb Conc 31.6 g/gl (32-36); Mean Corpuscular Volume 94.8 fL (81-99); Mean Platelet Vol. 9.2 fl (6.2-12.0); Monocyte# 1.04 X10^3/uL; Monocyte% 13.6 % (0-10); Neutrophil # 5.14 X10^3/uL (2.7-7.7); Neutrophil % 67.1 % (47-70); Platelet Count 287 K/mm3 (150-450); RBC Distribution Width CV 13.5 % (11.6-14.6); RBC Distribution Width SD 44.4 fl (35.1-43.9); Red Blood Count 3.27 M/mm3 (4.2-5.4); White Blood Count 7.7 K/mm3 (4.4-11.0)
[2017-12-31 06:43] LABS: POSITIVE COUNT NO; POSITIVE DIFFERENTIAL NO; POSITIVE MORPHOLOGY NO
[2017-12-31] MEDS: Ceftriaxone 1 GM/50 ML BAG IV (06:52)
[2017-12-31 06:56] LABS: Anion Gap 10 (5-15); BUN 7 mg/dL (7-18); Calcium,Total 7.8 mg/dL (8.5-10.1); Chloride 104 mmol/L (98-107); Creatinine, Serum 0.58 mg/dL (0.55-1.02); EST Glomerular Filtration Rate 106 mL/min (>60); Est Glom Filt Rate - Afr Amer 129 mL/min (>60); Estimated Creatinine Clearance 41.33 ml/min; Glucose 71 mg/dL (74-106); Potassium 4.2 mmol/L (3.5-5.1); Sodium Level 135 mmol/L (136-145)
--- NOTE | 2017-12-31 07:55 | PN_ITS ---
Patient Problems: Active and Suspected Problems (Last Reviewed 12/29/17 @ 16:37 by Gerson Wick DO) Fracture of hip, left, closed (Acute) Subjective: Patient with no acute events overnight per self and per nursing report. Patient did state that this morning she has discomfort notably with any attempts to lay flat secondary to left hip worsened discomfort with repositioning. Family present and did discuss at length decision to initiate antibiotic for possible urinary tract infection with questionable urinalysis upon presentation; however, urine culture is pending and patient and family understand that if unremarkable would discontinue this. Patient and family amenable to transition to acute rehab facility once insurance has given approval. Patient did note mild decreased sensation in the thigh region following operative intervention and encouraged her to discuss this with her orthopedic surgeon. Patient denies fevers, chills, nausea, emesis, abdominal pain, chest pain or dyspnea. Objective: Physical Examination: General: awake, alert, oriented x 3 and cooperative, seated upright in the bed, notable discomfort w/ any attempts to lay bed more flat. Skin: normal color, turgor, no icterus, cyanosis with L hip region w/ dressing in place, no drainage noted. HEENT: AT/NC, EOMI, PERRLA, improved MMM, extremely hard of hearing despite hearing aid in place. Lungs: Diminished breath sounds bases, moderate effort, no rales, ronchi or wheezing. Heart: Regular rate and rhythm; no gallop, rub audible. Abdomen: soft, NTTP, ND, normal BS. Extremities: no cyanosis, clubbing, peripheral pulses intake, s/p fall w/ L hip fracture s/p OR w/ dressing in place, no drainage and some decreased sensation to mid thigh and distally. Neurological: patient awake, alert, oriented x 3; cognitive function intact; pupils equally reactive to light and accomodation; cranial nerves II-XII grossly normal, moving all 4 extremities but severely limited LLE movement s/p fall w/ L hip fracture s/p OR w/ dressing in place, strength remains severely globally decreased. Psychiatric: affect appears normal, no acute evidence of depressive or anxiety feelings. Vitals/I&O's: Vital Signs Temp Pulse Resp BP Pulse Ox 98.6 F 89 16 112/52 L 94 12/31/17 03:28 12/31/17 03:28 12/31/17 03:28 12/31/17 03:28 12/31/17 03:45 Oxygen Flow Rate (L/min) 1 Oxygen Delivery Method Nasal Cannula Weight: 139 lb 15.896 oz Body Mass Index (BMI) 23.8 Intake and Output for Last 24 Hours 12/29/17 12/30/17 12/31/17 23:59 23:59 23:59 Intake Total 3139 / 3139 2152 / 2152 Output Total 450 / 450 1575 / 1575 1350 / 1350 Balance -450 / -450 1564 / 1564 802 / 802 Laboratory Results 12/29/17 19:40: Vitamin D 25-Hydroxy 51.8 12/30/17 05:10: Antibody Identification ANTI-E 12/30/17 05:10: Crossmatch See Detail 12/30/17 05:10: Antigen Identification E ANTIGEN - NEGATIVE 12/30/17 05:10: Free T4 1.17 12/30/17 11:25: Urine Color Yellow, Urine Clarity Clear, Urine pH 6.0, Ur Specific [place] 1.010, Urine Protein Negative, Urine Glucose (UA) Normal, Urine Ketones 50 H, Urine Occult Blood 250 H, Urine Nitrite Negative, Urine Bilirubin Negative, Urine Urobilinogen Normal, Ur Leukocyte Esterase 500 H, Urine RBC 5-10 SEEN, Urine WBC 50-100 SEEN, Ur Squamous Epith Cells 0-5 SEEN, Urine Bacteria 1+, Urine Mucus 0 SEEN 12/30/17 11:50: Potassium 3.4 L 12/31/17 05:26: WBC 7.7, RBC 3.27 L, Hgb 9.8 L, Hct 31.0 L, MCV 94.8, MCH 30.0, MCHC 31.6 L, RDW 13.5, RDW Differential 44.4 H, Plt Count 287, MPV 9.2, Immature Gran % (Auto) 0.300, Neut % (Auto) 67.1, Lymph % (Auto) 17.6 L, [place] % (Auto) 13.6 H, Eos % (Auto) 1.0, Baso % (Auto) 0.4, Absolute Neuts (auto) 5.1, Absolute Lymphs (auto) 1.35, Total Counted Not Reportable 12/31/17 05:26: Sodium 135 L, Potassium 4.2, Chloride 104, Carbon Dioxide 21.0, Anion Gap 10, BUN 7, Creatinine 0.58, Estim Creat Clear Calc 41.33, Est GFR ( MDRD) Af Amer 129, Est GFR (MDRD) Non-Af 106, BUN/Creatinine Ratio 12.0, Glucose 71 L, Calcium 7.8 L Current Medications Acetaminophen (Tylenol) 650 mg PO Q6H PRN PRN PRN Reason: Mild Pain (1-3)/Temp > 100.7 F Hydrocodone Bitart/Acetaminophen ([place] 5mg-325mg) 1 - 2 tablet PO Q6H PRN PRN PRN Reason: Mild-moderate pain (scale 1-5) Diphenhydramine HCl (Benadryl) 12.5 mg IV Q4H PRN PRN PRN Reason: ITCHING Last Admin: 12/30/17 20:00 Dose: 12.5 mg Famotidine (Pepcid) 20 mg PO DAILY [facility] Last Admin: 12/30/17 11:02 Dose: 20 mg [facility] Last Admin: 12/30/17 08:17 Dose: 325 mg Hydralazine HCl (Apresoline Iv) 10 mg IV Q4H PRN PRN PRN Reason: SBP > 160 Hydromorphone HCl (Dilaudid Inj) 0.5 - 1 mg IV Q3H PRN PRN PRN Reason: SEVERE PAIN (6-10/10) Last Admin: 12/31/17 00:13 Dose: 0.5 mg Hydromorphone HCl (Dilaudid Inj) 0.5 - 1 mg IV Q3H PRN PRN PRN Reason: SEVERE PAIN (6-10/10) Last Admin: 12/30/17 20:00 Dose: 1 mg Sodium Chloride () 1,000 mls @ 75 mls/hr IV .[id number] [facility] Last Admin: 12/31/17 05:44 Dose: 75 mls/hr Ceftriaxone Sodium (Rocephin) 1 gm in 50 mls @ 100 mls/hr IV Q24 [facility] Last Admin: 12/31/17 06:52 Dose: 100 mls/hr Magnesium Hydroxide (Milk Of Magnesia) 30 ml PO DAILY PRN PRN PRN Reason: Constipation Ondansetron HCl (Zofran) 4 mg IV Q8H PRN PRN PRN Reason: NAUSEA Oxycodone HCl (Oxyir) 5 - 10 mg PO Q4H PRN PRN PRN Reason: MOD-SEVERE PAIN (4-10/10) Last Admin: 12/31/17 05:51 Dose: 10 mg Rivaroxaban (Xarelto) 10 mg PO DAILY@0600 [facility] Last Admin: 12/31/17 05:45 Dose: 10 mg Sodium Chloride () 5 - 30 ml IV UD PRN PRN Reason: SALINE FLUSH Last Admin: 12/30/17 07:19 Dose: 10 ml Medical Necessity - Tobacco Use Smoking Status: Never smoker Tobacco Use: Non-smoker Assessment/Plan All Active Problems (Last Reviewed 12/29/17 @ 16:37 by Gerson Wick DO) Fracture of hip, left, closed (Acute) The patient is a 77 y/o F w/ PMHx: GERD, Chronic back pain, OA/OP, Fe Deficiency Anemia, Hard of Hearing who presents to the [facility] ED on 12/29/17 w/ mechanical fall onto her left side with immediate intractable pain, debility. (1) General debility, L hip pain s/p mechanical fall w/ left nondisplaced impacted intertrochanteric fracture of the proximal left femur: Plain film hip/ pelvis noting left nondisplaced impacted intertrochanteric fracture of the proximal left femur. Orthopedic surgery consulted from ED. OR 12/30/17 left hip cephalomedullary nailing per Dr. Currie. Admitted to [facility], TSH mildly elevated with normal FT4, Mag level normal, UA/UCx w/ concerns for UTI, monitor I/Os, frequent positioning, fall precautions. Pain, anti-emetic regimen. PT/OT following operative intervention. CM consulted for discharge planning. (2) Hypokalemia: Admission K+ 2.3, repeat level 3, oral supplementation given prior to OR transition, 12/31/17 K 4.2. (3) ? Acute Urinary Tract Infection: UA ? remarkable, pending UCx, monitor I/Os , initiated on IV Rocephin w/ transition as able pending sensitivities and speciation. If unremarkable UCx will d/c abx therapy. (4) Anemia, Fe Deficiency: Admission Hgb 12.3, normocytic, continue Fe supplementation, trend. (5) Subclinical Hypothyroidism: TSH 5.69, FT4 1.17, subclinical, recommend given acute setting repeat thyroid fx studies 6-8 weeks. (5) GERD: Famotidine. (6) DVT Prophylaxis: SCDs, Xarelto. (7) CODE status: Full Code. Code Visit Inpatient E&M: 02179 Subs Hosp L2
[2017-12-31] MEDS: Ferrous Sulfate 325 MG Tablet PO (08:43)
[2017-12-31 10:02] VITALS: BP 108/55; PULSE 87; RESP 16; TEMP 37.3; O2SAT 97
[2017-12-31] MEDS: Famotidine 20 MG Tablet PO (10:05)
--- NOTE | 2017-12-31 11:07 | PN.ORTHO_ITS ---
Patient Problems: Active and Suspected Problems (Last Reviewed 12/29/17 @ 16:37 by Gerson Wick DO) Fracture of hip, left, closed (Acute) Subjective: Patient seen and examined At bedside with family present. Patient states pain better controlled and not having acute pain like she was having yesterday. States she feels a little bit of numbness on the lateral aspect of her by her incisions and is feeling better. Per family she is also tolerating p.o.'s she is using her incentive spirometer occasionally. Denies chest pain fevers chills shortness of breath or other constitutional symptoms. No calf pain. - Physical Exam General: Alert, Oriented x3, Cooperative HEENT: Atraumatic, PERRLA, EOMI, Normocephalic Neck: Supple, No JVD, Negative Carotid Bruits Lungs: Clear to auscultation, Normal air movement Cardiovascular: Regular rate, No murmurs Abdomen: Bowel Sounds Present, Soft, Non Tender Extremities: No edema, Capillary Refill Less than 3 Seconds Skin: No rashes, No breakdown Musculoskeletal: Tenderness - ttp along incision site, no erythema, incision clean dry and intact, Active range of motion passive range of motion intact, compartment soft, sensation grossly intact, Slight decreased sensation over the lateral aspect of her leg at site of incision Neurological: Cranial nerves II-XII grossly intact Psych/Mental Status: Normal Affect, Appropriate Vital Signs Temp Pulse Resp BP Pulse Ox 99.2 F H 87 16 108/55 L 97 12/31/17 10:02 12/31/17 10:02 12/31/17 10:02 12/31/17 10:02 12/31/17 10:02 Oxygen Flow Rate (L/min) 1 Oxygen Delivery Method Room Air Weight: 139 lb 15.896 oz Body Mass Index (BMI) 23.8 Intake and Output for Last 24 Hours 12/29/17 12/30/17 12/31/17 23:59 23:59 23:59 Intake Total 3139 / 3139 2152 / 2152 Output Total 450 / 450 1575 / 1575 1350 / 1350 Balance -450 / -450 1564 / 1564 802 / 802 Laboratory Tests Past 24 Hrs 12/30/17 12/30/17 12/31/17 11:25 11:50 05:26 WBC 7.7 RBC 3.27 L Hgb 9.8 L Hct 31.0 L MCV 94.8 MCH 30.0 MCHC 31.6 L RDW 13.5 RDW Differential 44.4 H Plt Count 287 MPV 9.2 Immature Gran % (Auto) 0.300 Neut % (Auto) 67.1 Lymph % (Auto) 17.6 L [place] % (Auto) 13.6 H Eos % (Auto) 1.0 Baso % (Auto) 0.4 Absolute Neuts (auto) 5.1 Absolute Lymphs (auto) 1.35 Total Counted Not Reportable Sodium Potassium 3.4 L Chloride Carbon Dioxide Anion Gap BUN Creatinine Estim Creat Clear Calc Est GFR (MDRD) Af Amer Est GFR (MDRD) Non-Af BUN/Creatinine Ratio Glucose Calcium Urine Color Yellow Urine Clarity Clear Urine pH 6.0 Ur Specific [place] 1.010 Urine Protein Negative Urine Glucose (UA) Normal Urine Ketones 50 H Urine Occult Blood 250 H Urine Nitrite Negative Urine Bilirubin Negative Urine Urobilinogen Normal Ur Leukocyte Esterase 500 H Urine RBC 5-10 SEEN Urine WBC 50-100 SEEN Ur Squamous Epith Cells 0-5 SEEN Urine Bacteria 1+ Urine Mucus 0 SEEN 12/31/17 05:26 WBC RBC Hgb Hct MCV MCH MCHC RDW RDW Differential Plt Count MPV Immature Gran % (Auto) Neut % (Auto) Lymph % (Auto) [place] % (Auto) Eos % (Auto) Baso % (Auto) Absolute Neuts (auto) Absolute Lymphs (auto) Total Counted Sodium 135 L Potassium 4.2 Chloride 104 Carbon Dioxide 21.0 Anion Gap 10 BUN 7 Creatinine 0.58 Estim Creat Clear Calc 41.33 Est GFR (MDRD) Af Amer 129 Est GFR (MDRD) Non-Af 106 BUN/Creatinine Ratio 12.0 Glucose 71 L Calcium 7.8 L Urine Color Urine Clarity Urine pH Ur Specific [place] Urine Protein Urine Glucose (UA) Urine Ketones Urine Occult Blood Urine Nitrite Urine Bilirubin Urine Urobilinogen Ur Leukocyte Esterase Urine RBC Urine WBC Ur Squamous Epith Cells Urine Bacteria Urine Mucus Medical Necessity - Tobacco Use Smoking Status: Never smoker Tobacco Use: Non-smoker Assessment/Plan All Active Problems (Last Reviewed 12/29/17 @ 16:37 by Gerson Wick DO) Fracture of hip, left, closed (Acute) pod 1 s/p left cephalomedullary nailing Discussed with family wrist benefits and alternatives surgery. Risks including but not limited to blood loss, blood clot, infection, neurovascular injury, failure procedure, loss of life and loss of limb. Patient has a located will be normalized prior to surgery. This was discussed with anesthesia as well. Family is aware of the risks associated with surgery she will be weightbearing tomorrow on the left hip provide we had good fixation. This is discussed as well. We discussed the risk of cut out need for revision surgery should be revised to the [place]-versus a total hip. Family is aware of this as well. Ancef changed to Rocephin for questionable UTI cultures pending scds/anitcoag xarelto wbat left le pain control dispo planning- rehab as has steps at home most likely postop xrays - anatomic alignment left cephalomedullary nailing Call with concerns [phone] This note was generated with [employer] dictation software. It may contain incorrect words, spelling, and punctuation that were not noted in checking the note before signing.
--- NOTE | 2017-12-31 12:48 | CASEMGMT ---
Social Work Note SW received message from [facility] with [facility] stating that she has a bed available on [facility] Thursday. SW informed [facility] that pt and pt's family first choice was [facility]. [facility] states that she will submit for pre-cert once PT/OT evaluates pt. SW in to update pt and pt's son Jeb present in room. SW explained to pt and pt's son pre-cert process and if pt gets denied [facility] then the next option could be for pt to go to SNF. SW explained the different level of care for [facility] vs. SNF. Pt and Jeb states understanding. SW informed pt and Jeb that once this worker hears from pt's insurance this SW will update pt and family. Pt and Jeb denied additional needs or concerns at this time. Plan: [facility] pending pre-cert Katty Conley MANAGER FILM, BANKRUPTCY LEGAL ASSISTANT
[2017-12-31 14:56] VITALS: BP 126/64; PULSE 92; RESP 18; TEMP 38.4; O2SAT 95
[2017-12-31] MEDS: Acetaminophen 325 MG Tablet 650 MG PO (15:27)
[2017-12-31] MEDS: 0.9% NaCl Peripheral Flush Adult/Peds IV (15:28)
[2017-12-31 17:20] VITALS: TEMP 37.4
[2017-12-31 21:55] VITALS: BP 123/74; PULSE 99; RESP 18; TEMP 37.8; O2SAT 92
[2018-01-01 03:55] VITALS: BP 126/64; PULSE 100; RESP 16; TEMP 37.7; O2SAT 93
[2018-01-01 06:17] LABS: Absolute Lymphocyte Count 1.15 X10^3/ul (0.83-4.51); Basophil# 0.02 X10^3/uL; Basophil% 0.3 % (0-1); Eosinophil# 0.07 X10^3/uL; Hematocrit 26.9 % (37-47); Hemoglobin 8.8 g/dl (12.0-15.0); Lymphocyte # 1.15 X10^3/ul (4.0); Lymphocyte % 15.9 % (19-41); Mean Corp Hgb Conc 32.7 g/gl (32-36); Mean Corpuscular Hgb 29.7 pg (27.0-32.0); Mean Corpuscular Volume 90.9 fL (81-99); Mean Platelet Vol. 8.6 fl (6.2-12.0); Monocyte# 1.03 X10^3/uL; Monocyte% 14.2 % (0-10); Neutrophil # 4.96 X10^3/uL (2.7-7.7); Neutrophil % 68.5 % (47-70); Platelet Count 241 K/mm3 (150-450); RBC Distribution Width CV 13.6 % (11.6-14.6); Red Blood Count 2.96 M/mm3 (4.2-5.4); White Blood Count 7.2 K/mm3 (4.4-11.0)
[2018-01-01 06:20] LABS: POSITIVE COUNT NO; POSITIVE DIFFERENTIAL NO; POSITIVE MORPHOLOGY NO
[2018-01-01 06:37] LABS: Anion Gap 7 (5-15); BUN 7 mg/dL (7-18); BUN/Creat Ratio 12.3 RATIO (10-20); Calcium,Total 7.4 mg/dL (8.5-10.1); Chloride 103 mmol/L (98-107); Creatinine, Serum 0.57 mg/dL (0.55-1.02); EST Glomerular Filtration Rate 109 mL/min (>60); Est Glom Filt Rate - Afr Amer 132 mL/min (>60); Estimated Creatinine Clearance 41.33 ml/min; Glucose 122 mg/dL (74-106); Potassium 3.7 mmol/L (3.5-5.1); Sodium Level 136 mmol/L (136-145)
--- NOTE | 2018-01-01 06:41 | PCM.DC ---
- Discharge Diagnoses Current Active Problems: Current Active and Chronic Problems (Last Reviewed 12/29/17 @ 16:37 by Gerson Wick DO) (1) General debility, L hip pain s/p mechanical fall w/ left nondisplaced impacted intertrochanteric fracture of the proximal left femur (2) Hypokalemia (3) ? Acute Urinary Tract Infection (4) Acute on Chronic Anemia, Fe Deficiency secondary to operative intervention (5) Subclinical Hypothyroidism (TSH 5.69, FT4 1.17) subclinical (6) GERD You will use the following diet at home:: Regular Your food should be the consistency of: Regular Your liquids should be the consistency of: Regular/Thin Discharge Activity: - - Activities per Acute Rehabilitation Facility parameters May resume sexual activity in: - - Once cleared per Orthopedic Surgery. Weight Bearing Status: Weight bearing as tolerated Keep extremity elevated above heart level: Operative Extremity Call your doctor if your incision/area has: Continuous Slow Oozing, Sudden Increased Bleeding, Increased Pain/ Swelling, Increased Redness, Foul Smelling Discharge, Swelling at the incision site Call your doctor if you observe: Fever of 101 or Higher, Inability to urinate, Inability to have a bowel movement, Shortness of breath, Dizziness, Fainting spells, Chest pain, Uncontrolled pain Allergies/Adverse Reactions: Allergies No Known Allergies Allergy (Unverified 07/30/17 10:43) Medications to take at Discharge Cholecalciferol (Vitamin D3) [Vitamin D3] 5,000 unit PO DAILY 12/29/17 Acetaminophen [Tylenol Tablet] 650 mg PO Q6H PRN PRN tablet 01/01/18 Cephalexin [Keflex] 500 mg PO Q12 #10 capsule 01/01/18 Ferrous Sulfate 325 mg PO BIDCM tablet 01/01/18 Hydrocodone Bitart/[place]ap 5-325 [[place] 5/325] 1 - 2 tablet PO Q6H PRN PRN 5 Days #20 tablet 01/01/18 Rivaroxaban [Xarelto] 10 mg PO DAILY@0600 tablet 01/01/18 The following prescriptions were given: Cephalexin [Keflex] 500 mg PO Q12 #10 capsule Primary Care Physician: Care Physician,No Primary [Primary Care Provider] - Please follow up with your Primary Care Physician in: Follow-up within 1-2 days Acute Rehab discharge to review admit. Test Results: Test results from this visit will be discussed in further detail at your follow-up appointment, if applicable. Please Follow Up With: Homa Currie DO When: Follow-up within 1-2 weeks for re-eval or per Orthopedic discretion. Proposed Discharge Date: 01/02/18
--- NOTE | 2018-01-01 06:47 | DCINST_ITS ---
- Discharge Diagnoses Current Active Problems: Current Active and Chronic Problems (Last Reviewed 12/29/17 @ 16:37 by Gerson Wick DO) (1) General debility, L hip pain s/p mechanical fall w/ left nondisplaced impacted intertrochanteric fracture of the proximal left femur (2) Hypokalemia (3) ? Acute Urinary Tract Infection (4) Acute on Chronic Anemia, Fe Deficiency secondary to operative intervention (5) Subclinical Hypothyroidism (TSH 5.69, FT4 1.17) subclinical (6) GERD You will use the following diet at home:: Regular Your food should be the consistency of: Regular Your liquids should be the consistency of: Regular/Thin Discharge Activity: - - Activities per Acute Rehabilitation Facility parameters May resume sexual activity in: - - Once cleared per Orthopedic Surgery. Weight Bearing Status: Weight bearing as tolerated Keep extremity elevated above heart level: Operative Extremity Call your doctor if your incision/area has: Continuous Slow Oozing, Sudden Increased Bleeding, Increased Pain/ Swelling, Increased Redness, Foul Smelling Discharge, Swelling at the incision site Call your doctor if you observe: Fever of 101 or Higher, Inability to urinate, Inability to have a bowel movement, Shortness of breath, Dizziness, Fainting spells, Chest pain, Uncontrolled pain Allergies/Adverse Reactions: Allergies No Known Allergies Allergy (Unverified 07/30/17 10:43) Medications to take at Discharge Cholecalciferol (Vitamin D3) [Vitamin D3] 5,000 unit PO DAILY 12/29/17 Acetaminophen [Tylenol Tablet] 650 mg PO Q6H PRN PRN tablet 01/01/18 Cephalexin [Keflex] 500 mg PO Q12 #10 capsule 01/01/18 Ferrous Sulfate 325 mg PO BIDCM tablet 01/01/18 Hydrocodone Bitart/[place]ap 5-325 [[place] 5/325] 1 - 2 tablet PO Q6H PRN PRN 5 Days # 20 tablet 01/01/18 Rivaroxaban [Xarelto] 10 mg PO DAILY@0600 tablet 01/01/18 The following prescriptions were given: Cephalexin [Keflex] 500 mg PO Q12 #10 capsule Primary Care Physician: Care Physician,No Primary [Primary Care Provider] - Please follow up with your Primary Care Physician in: Follow-up within 1-2 days Acute Rehab discharge to review admit. Test Results: Test results from this visit will be discussed in further detail at your follow- up appointment, if applicable. Please Follow Up With: Homa Currei DO When: Follow-up within 1-2 weeks for re-eval or per Orthopedic discretion. Proposed Discharge Date: 01/02/18
[2018-01-01] MEDS: Rivaroxaban 10 MG Tablet PO (07:00)
--- NOTE | 2018-01-01 08:25 | PCM.PN.ORT ---
Patient Problems: Active and Suspected Problems (Last Reviewed 12/29/17 @ 16:37 by Gerson Wick DO) Fracture of hip, left, closed (Acute) Subjective: Patient seen and examined today. Patient states she feels much better she is able to get up with physical therapy with max assist, she is with her family at bedside there are no complaints no fevers chills shortness of breath chest pain calf pain or other complaints. - Physical Exam General: Alert, Oriented x3, Cooperative HEENT: Atraumatic, PERRLA, EOMI, Normocephalic Neck: Supple, No JVD, Negative Carotid Bruits Lungs: Clear to auscultation, Normal air movement Cardiovascular: Regular rate, No murmurs Abdomen: Bowel Sounds Present, Soft, Non Tender Extremities: No edema, Capillary Refill Less than 3 Seconds Skin: No rashes, No breakdown Musculoskeletal: Tenderness - Left leg dressing clean dry and intact, is going to be changed by nursing staff today, active range of motion ankles intact , no calf pain, sensation grossly intact Neurological: Cranial nerves II-XII grossly intact Psych/Mental Status: Normal Affect, Appropriate Vital Signs Temp Pulse Resp BP Pulse Ox 99.9 F H 100 16 126/64 H 93 01/01/18 03:55 01/01/18 03:55 01/01/18 03:55 01/01/18 03:55 01/01/18 03:55 Oxygen Flow Rate (L/min) 1 Oxygen Delivery Method Room Air Weight: 139 lb 15.896 oz Body Mass Index (BMI) 23.8 Intake and Output for Last 24 Hours 12/30/17 12/31/17 01/01/18 23:59 23:59 23:59 Intake Total 3139 / 3139 3132 / 3132 360 / 360 Output Total 1575 / 1575 2250 / 2250 1200 / 1200 Balance 1564 / 1564 882 / 882 -840 / -840 Laboratory Tests Past 24 Hrs 01/01/18 01/01/18 05:23 05:23 WBC 7.2 RBC 2.96 L Hgb 8.8 L Hct 26.9 L MCV 90.9 MCH 29.7 MCHC 32.7 RDW 13.6 RDW Differential 45.0 H Plt Count 241 MPV 8.6 Immature Gran % (Auto) 0.100 Neut % (Auto) 68.5 Lymph % (Auto) 15.9 L [place] % (Auto) 14.2 H Eos % (Auto) 1.0 Baso % (Auto) 0.3 Absolute Neuts (auto) 5.0 Absolute Lymphs (auto) 1.15 Total Counted Not Reportable Sodium 136 Potassium 3.7 Chloride 103 Carbon Dioxide 26.0 Anion Gap 7 BUN 7 Creatinine 0.57 Estim Creat Clear Calc 41.33 Est GFR (MDRD) Af Amer 132 Est GFR (MDRD) Non-Af 109 BUN/Creatinine Ratio 12.3 Glucose 122 H Calcium 7.4 L Medical Necessity - Tobacco Use Smoking Status: Never smoker Tobacco Use: Non-smoker Assessment/Plan All Active Problems (Last Reviewed 12/29/17 @ 16:37 by Gerson Wick DO) Fracture of hip, left, closed (Acute) pod 2 s/p left cephalomedullary nailing Discussed with family wrist benefits and alternatives surgery. Risks including but not limited to blood loss, blood clot, infection, neurovascular injury, failure procedure, loss of life and loss of limb. Patient has a located will be normalized prior to surgery. This was discussed with anesthesia as well. Family is aware of the risks associated with surgery she will be weightbearing tomorrow on the left hip provide we had good fixation. This is discussed as well. We discussed the risk of cut out need for revision surgery should be revised to the [place]-versus a total hip. Family is aware of this as well. Ancef changed to Rocephin for questionable UTI cultures pending scds/anitcoag xarelto wbat left le pain control dispo planning- rehab as has steps at home most likely postop xrays - anatomic alignment left cephalomedullary nailing Call with concerns [phone] Follow-up in 2 weeks in my office or if patient is here in rehab I will see her in the TCU This note was generated with Olo dictation software. It may contain incorrect words, spelling, and punctuation that were not noted in checking the note before signing.
[2018-01-01 09:06] VITALS: BP 117/72; PULSE 91; RESP 18; TEMP 37.5; O2SAT 95
[2018-01-01] MEDS: Famotidine 20 MG Tablet PO (09:35)
[2018-01-01] MEDS: HYDROcodone Bitartrate/Apap 5/325 Tablet PO ×3 (09:35→20:07)
[2018-01-01] MEDS: 0.9% NaCl Peripheral Flush Adult/Peds IV (09:36)
[2018-01-01] MEDS: Ferrous Sulfate 325 MG Tablet PO ×2 (09:36→17:15)
[2018-01-01] MEDS: Magnesium Hydroxide 30 ML UDC PO (09:36)
[2018-01-01] MEDS: DiphenhydrAMINE 50 MG/ML Syringe 12.5 MG IV (09:36)
[2018-01-01] MEDS: Ceftriaxone 1 GM/50 ML BAG IV (09:39)
--- NOTE | 2018-01-01 09:54 | CASEMGMT ---
Social Work Note SW received message from [facility] with RU stating that she loaded pre-cert yesterday and is hoping to receive pre-cert today. Plan: RU pending pre-cert Katty Conley SPRAY STAINER, X RAY INSPECTOR
--- NOTE | 2018-01-01 10:51 | PCM.PN.HOSP ---
Patient Problems: Active and Suspected Problems (Last Reviewed 12/29/17 @ 16:37 by Gerson Wick DO) Fracture of hip, left, closed (Acute) Subjective: The patient is a 77 y/o F w/ PMHx: GERD, Chronic back pain, OA/OP, Fe Deficiency Anemia, Hard of Hearing who presents to the [facility] ED on 12/29/17 w/ mechanical fall onto her left side with immediate intractable pain, debility. General debility, L hip pain s/p mechanical fall w/ left nondisplaced impacted intertrochanteric fracture of the proximal left femur: Plain film hip/pelvis noting left nondisplaced impacted intertrochanteric fracture of the proximal left femur. Orthopedic surgery consulted from ED. OR 12/30/17 left hip cephalomedullary nailing per Dr. Currie. Admitted to [facility], TSH mildly elevated with normal FT4, Mag level normal, UA/UCx w/ concerns for UTI, monitor I/Os, frequent positioning, fall precautions. Pain, anti-emetic regimen. PT/OT following operative intervention. CM consulted for discharge planning. Pending request for Acute Rehabilitation for 01/02/18 discharge. Admission K+ 2.3, repeat level 3, oral supplementation given prior to OR transition, 01/01/18 K 3.7. UTI RULED OUT, Initial concern, Mild appearing UA, UCx WITHOUT GROWTH, d/c IV rocephin. Admission Hgb 12.3, normocytic, 01/01/18 Hgb 8.8, VS stable, will increase home Fe supplementation to BID. TSH 5.69, FT4 1.17, subclinical, recommend given acute setting repeat thyroid fx studies outpatient. SCDs, Xarelto. Patient with improvement of pain overnight per self and per nursing report with oral and IV regimen intermittently. She is tolerating movement better this morning the day prior but still notes discomfort with any movement of the left lower extremity. She does have some drainage on the dressing today with some minimal oozing from the superior incision with flakita intact to both. Patient notes frustrations over this acute situation as she is always been very active. Encourage patient to be patient with her body and that this would improve over time. Patient denies fevers, chills, nausea, emesis, abdominal pain, chest pain or dyspnea. Objective: Physical Examination: General: awake, alert, oriented x 3 and cooperative, seated upright in the bed, more comfortable appearing today. Skin: normal color, turgor, no icterus, cyanosis with L hip region w/ dressing in place, some minimal oozing from superior incision, stables intact to both. HEENT: AT/NC, EOMI, PERRLA, MMM, extremely hard of hearing despite hearing, hearing aids out. Lungs: Diminished breath sounds bases, moderate effort, no rales, ronchi or wheezing. Heart: Regular rate and rhythm; no gallop, rub audible. Abdomen: soft, NTTP, ND, normal BS. Extremities: no cyanosis, clubbing, peripheral pulses intake, s/p fall w/ L hip fracture s/p OR w/ dressing in place, sensation improving, some mild oozing as noted. Neurological: patient awake, alert, oriented x 3; cognitive function intact; pupils equally reactive to light and accomodation; cranial nerves II-XII grossly normal, moving all 4 extremities but severely limited LLE movement but improving since day prior s/p fall w/ L hip fracture s/p OR w/ dressing in place, strength remains severely globally decreased. Psychiatric: affect appears normal, no acute evidence of depressive or anxiety feelings. Vitals/I&O's: Vital Signs Temp Pulse Resp BP Pulse Ox 99.5 F H 91 18 117/72 95 01/01/18 09:06 01/01/18 09:06 01/01/18 09:06 01/01/18 09:06 01/01/18 09:06 Oxygen Flow Rate (L/min) 1 Oxygen Delivery Method Room Air Weight: 139 lb 15.896 oz Body Mass Index (BMI) 23.8 Intake and Output for Last 24 Hours 12/30/17 12/31/17 01/01/18 23:59 23:59 23:59 Intake Total 3139 / 3139 3132 / 3132 360 / 360 Output Total 1575 / 1575 2250 / 2250 1200 / 1200 Balance 1564 / 1564 882 / 882 -840 / -840 Microbiology Past 72 Hours 12/30/17 11:25 Urine, Clean Catch Urine Culture - Final Culture exhibits no growth. Laboratory Results 01/01/18 05:23: WBC 7.2, RBC 2.96 L, Hgb 8.8 L, Hct 26.9 L, MCV 90.9, MCH 29.7, MCHC 32.7, RDW 13.6, RDW Differential 45.0 H, Plt Count 241, MPV 8.6, Immature Gran % (Auto) 0.100, Neut % (Auto) 68.5, Lymph % (Auto) 15.9 L, [place] % (Auto) 14.2 H, Eos % (Auto) 1.0, Baso % (Auto) 0.3, Absolute Neuts (auto) 5.0, Absolute Lymphs (auto) 1.15, Total Counted Not Reportable 01/01/18 05:23: Sodium 136, Potassium 3.7, Chloride 103, Carbon Dioxide 26.0, Anion Gap 7, BUN 7, Creatinine 0.57, Estim Creat Clear Calc 41.33, Est GFR (MDRD) Af Amer 132, Est GFR (MDRD) Non-Af 109, BUN/Creatinine Ratio 12.3, Glucose 122 H, Calcium 7.4 L Current Medications Acetaminophen (Tylenol) 650 mg PO Q6H PRN PRN PRN Reason: Mild Pain (1-3)/Temp > 100.7 F Last Admin: 12/31/17 15:27 Dose: 650 mg Hydrocodone Bitart/Acetaminophen ([place] 5mg-325mg) 1 - 2 tablet PO Q6H PRN PRN PRN Reason: Mild-moderate pain (scale 1-5) Last Admin: 01/01/18 09:35 Dose: 1 tablet Diphenhydramine HCl (Benadryl) 12.5 mg IV Q4H PRN PRN PRN Reason: ITCHING Last Admin: 01/01/18 09:36 Dose: 12.5 mg Famotidine (Pepcid) 20 mg PO DAILY [facility] Last Admin: 01/01/18 09:35 Dose: 20 mg [facility]ous S[facility]) [facility] Last Admin: 01/01/18 09:36 Dose: 325 mg Hydralazine HCl (Apresoline Iv) 10 mg IV Q4H PRN PRN PRN Reason: SBP > 160 Hydromorphone HCl (Dilaudid Inj) 0.5 - 1 mg IV Q3H PRN PRN PRN Reason: SEVERE PAIN (6-10/10) Last Admin: 12/31/17 21:45 Dose: 0.5 mg Hydromorphone HCl (Dilaudid Inj) 0.5 - 1 mg IV Q3H PRN PRN PRN Reason: SEVERE PAIN (6-10/10) Last Admin: 12/30/17 20:00 Dose: 1 mg Ceftriaxone Sodium (Rocephin) 1 gm in 50 mls @ 100 mls/hr IV Q24 SAUD Last Admin: 01/01/18 09:39 Dose: 100 mls/hr Magnesium Hydroxide (Milk Of Magnesia) 30 ml PO DAILY PRN PRN PRN Reason: Constipation Last Admin: 01/01/18 09:36 Dose: 30 ml Ondansetron HCl (Zofran) 4 mg IV Q8H PRN PRN PRN Reason: NAUSEA Rivaroxaban (Xarelto) 10 mg PO DAILY@0600 SAUD Last Admin: 01/01/18 07:00 Dose: 10 mg Sodium Chloride () 5 - 30 ml IV UD PRN PRN Reason: SALINE FLUSH Last Admin: 01/01/18 09:36 Dose: 20 ml Medical Necessity - Tobacco Use Smoking Status: Never smoker Tobacco Use: Non-smoker Assessment/Plan All Active Problems (Last Reviewed 12/29/17 @ 16:37 by Gerson Wick DO) Fracture of hip, left, closed (Acute) The patient is a 77 y/o F w/ PMHx: GERD, Chronic back pain, OA/OP, Fe Deficiency Anemia, Hard of Hearing who presents to the [facility] ED on 12/29/17 w/ mechanical fall onto her left side with immediate intractable pain, debility. (1) General debility, L hip pain s/p mechanical fall w/ left nondisplaced impacted intertrochanteric fracture of the proximal left femur: Plain film hip/pelvis noting left nondisplaced impacted intertrochanteric fracture of the proximal left femur. Orthopedic surgery consulted from ED. OR 12/30/17 left hip cephalomedullary nailing per Dr. Currie. Admitted to [facility], TSH mildly elevated with normal FT4, Mag level normal, UA/UCx w/ concerns for UTI, monitor I/Os, frequent positioning, fall precautions. Pain, anti-emetic regimen. PT/OT following operative intervention. CM consulted for discharge planning. Pending request for Acute Rehabilitation for 01/02/18 discharge. (2) Hypokalemia: Admission K+ 2.3, repeat level 3, oral supplementation given prior to OR transition, 01/01/18 K 3.7. (3) UTI RULED OUT, Initial concern, Mild appearing UA, UCx WITHOUT GROWTH: UA ? remarkable, UCx results this AM 01/01/18 without growth, d/c IV rocephin. (4) Anemia, Fe Deficiency: Admission Hgb 12.3, normocytic, 01/01/18 Hgb 8.8, VS stable, will increase home Fe supplementation to BID. (5) Subclinical Hypothyroidism: TSH 5.69, FT4 1.17, subclinical, recommend given acute setting repeat thyroid fx studies outpatient. (5) GERD: Famotidine. (6) DVT Prophylaxis: SCDs, Xarelto. (7) CODE status: Full Code. Code Visit Inpatient E&M: 88116 Subs Hosp L2
--- NOTE | 2018-01-01 10:57 | PN_ITS ---
Patient Problems: Active and Suspected Problems (Last Reviewed 12/29/17 @ 16:37 by Gerson Wick DO) Fracture of hip, left, closed (Acute) Subjective: The patient is a 77 y/o F w/ PMHx: GERD, Chronic back pain, OA/OP, Fe Deficiency Anemia, Hard of Hearing who presents to the [facility] ED on 12/29/17 w/ mechanical fall onto her left side with immediate intractable pain, debility. General debility, L hip pain s/p mechanical fall w/ left nondisplaced impacted intertrochanteric fracture of the proximal left femur: Plain film hip/pelvis noting left nondisplaced impacted intertrochanteric fracture of the proximal left femur. Orthopedic surgery consulted from ED. OR 12/30/17 left hip cephalomedullary nailing per Dr. Currie. Admitted to [facility], TSH mildly elevated with normal FT4, Mag level normal, UA/UCx w/ concerns for UTI, monitor I/Os, frequent positioning, fall precautions. Pain, anti-emetic regimen. PT/OT following operative intervention. CM consulted for discharge planning. Pending request for Acute Rehabilitation for 01/02/18 discharge. Admission K+ 2.3, repeat level 3, oral supplementation given prior to OR transition, 01/01/18 K 3.7. UTI RULED OUT, Initial concern, Mild appearing UA, UCx WITHOUT GROWTH, d/c IV rocephin. Admission Hgb 12.3, normocytic, 01/01/18 Hgb 8.8, VS stable, will increase home Fe supplementation to BID. TSH 5.69, FT4 1.17, subclinical, recommend given acute setting repeat thyroid fx studies outpatient. SCDs, Xarelto. Patient with improvement of pain overnight per self and per nursing report with oral and IV regimen intermittently. She is tolerating movement better this morning the day prior but still notes discomfort with any movement of the left lower extremity. She does have some drainage on the dressing today with some minimal oozing from the superior incision with flakita intact to both. Patient notes frustrations over this acute situation as she is always been very active. Encourage patient to be patient with her body and that this would improve over time. Patient denies fevers, chills, nausea, emesis, abdominal pain, chest pain or dyspnea. Objective: Physical Examination: General: awake, alert, oriented x 3 and cooperative, seated upright in the bed, more comfortable appearing today. Skin: normal color, turgor, no icterus, cyanosis with L hip region w/ dressing in place, some minimal oozing from superior incision, stables intact to both. HEENT: AT/NC, EOMI, PERRLA, MMM, extremely hard of hearing despite hearing, hearing aids out. Lungs: Diminished breath sounds bases, moderate effort, no rales, ronchi or wheezing. Heart: Regular rate and rhythm; no gallop, rub audible. Abdomen: soft, NTTP, ND, normal BS. Extremities: no cyanosis, clubbing, peripheral pulses intake, s/p fall w/ L hip fracture s/p OR w/ dressing in place, sensation improving, some mild oozing as noted. Neurological: patient awake, alert, oriented x 3; cognitive function intact; pupils equally reactive to light and accomodation; cranial nerves II-XII grossly normal, moving all 4 extremities but severely limited LLE movement but improving since day prior s/p fall w/ L hip fracture s/p OR w/ dressing in place , strength remains severely globally decreased. Psychiatric: affect appears normal, no acute evidence of depressive or anxiety feelings. Vitals/I&O's: Vital Signs Temp Pulse Resp BP Pulse Ox 99.5 F H 91 18 117/72 95 01/01/18 09:06 01/01/18 09:06 01/01/18 09:06 01/01/18 09:06 01/01/18 09:06 Oxygen Flow Rate (L/min) 1 Oxygen Delivery Method Room Air Weight: 139 lb 15.896 oz Body Mass Index (BMI) 23.8 Intake and Output for Last 24 Hours 12/30/17 12/31/17 01/01/18 23:59 23:59 23:59 Intake Total 3139 / 3139 3132 / 3132 360 / 360 Output Total 1575 / 1575 2250 / 2250 1200 / 1200 Balance 1564 / 1564 882 / 882 -840 / -840 Microbiology Past 72 Hours 12/30/17 11:25 Urine, Clean Catch Urine Culture - Final Culture exhibits no growth. Laboratory Results 01/01/18 05:23: WBC 7.2, RBC 2.96 L, Hgb 8.8 L, Hct 26.9 L, MCV 90.9, MCH 29.7, MCHC 32.7, RDW 13.6, RDW Differential 45.0 H, Plt Count 241, MPV 8.6, Immature Gran % (Auto) 0.100, Neut % (Auto) 68.5, Lymph % (Auto) 15.9 L, [place] % (Auto) 14.2 H, Eos % (Auto) 1.0, Baso % (Auto) 0.3, Absolute Neuts (auto) 5.0, Absolute Lymphs (auto) 1.15, Total Counted Not Reportable 01/01/18 05:23: Sodium 136, Potassium 3.7, Chloride 103, Carbon Dioxide 26.0, Anion Gap 7, BUN 7, Creatinine 0.57, Estim Creat Clear Calc 41.33, Est GFR (MDRD ) Af Amer 132, Est GFR (MDRD) Non-Af 109, BUN/Creatinine Ratio 12.3, Glucose 122 H, Calcium 7.4 L Current Medications Acetaminophen (Tylenol) 650 mg PO Q6H PRN PRN PRN Reason: Mild Pain (1-3)/Temp > 100.7 F Last Admin: 12/31/17 15:27 Dose: 650 mg Hydrocodone Bitart/Acetaminophen ([place] 5mg-325mg) 1 - 2 tablet PO Q6H PRN PRN PRN Reason: Mild-moderate pain (scale 1-5) Last Admin: 01/01/18 09:35 Dose: 1 tablet Diphenhydramine HCl (Benadryl) 12.5 mg IV Q4H PRN PRN PRN Reason: ITCHING Last Admin: 01/01/18 09:36 Dose: 12.5 mg Famotidine (Pepcid) 20 mg PO DAILY [facility] Last Admin: 01/01/18 09:35 Dose: 20 mg [facility]ous Sulf[facility] ([facility]) [facility] Last Admin: 01/01/18 09:36 Dose: 325 mg Hydralazine HCl (Apresoline Iv) 10 mg IV Q4H PRN PRN PRN Reason: SBP > 160 Hydromorphone HCl (Dilaudid Inj) 0.5 - 1 mg IV Q3H PRN PRN PRN Reason: SEVERE PAIN (6-10/10) Last Admin: 12/31/17 21:45 Dose: 0.5 mg Hydromorphone HCl (Dilaudid Inj) 0.5 - 1 mg IV Q3H PRN PRN PRN Reason: SEVERE PAIN (6-10/10) Last Admin: 12/30/17 20:00 Dose: 1 mg Ceftriaxone Sodium (Rocephin) 1 gm in 50 mls @ 100 mls/hr IV Q24 [facility]UD Last Admin: 01/01/18 09:39 Dose: 100 mls/hr Magnesium Hydroxide (Milk Of Magnesia) 30 ml PO DAILY PRN PRN PRN Reason: Constipation Last Admin: 01/01/18 09:36 Dose: 30 ml Ondansetron HCl (Zofran) 4 mg IV Q8H PRN PRN PRN Reason: NAUSEA Rivaroxaban (Xarelto) 10 mg PO DAILY@0600 [facility] Last Admin: 01/01/18 07:00 Dose: 10 mg Sodium Chloride () 5 - 30 ml IV UD PRN PRN Reason: SALINE FLUSH Last Admin: 01/01/18 09:36 Dose: 20 ml Medical Necessity - Tobacco Use Smoking Status: Never smoker Tobacco Use: Non-smoker Assessment/Plan All Active Problems (Last Reviewed 12/29/17 @ 16:37 by Gerson Wick DO) Fracture of hip, left, closed (Acute) The patient is a 77 y/o F w/ PMHx: GERD, Chronic back pain, OA/OP, Fe Deficiency Anemia, Hard of Hearing who presents to the [facility] ED on 12/29/17 w/ mechanical fall onto her left side with immediate intractable pain, debility. (1) General debility, L hip pain s/p mechanical fall w/ left nondisplaced impacted intertrochanteric fracture of the proximal left femur: Plain film hip/ pelvis noting left nondisplaced impacted intertrochanteric fracture of the proximal left femur. Orthopedic surgery consulted from ED. OR 12/30/17 left hip cephalomedullary nailing per Dr. Currie. Admitted to [facility], TSH mildly elevated with normal FT4, Mag level normal, UA/UCx w/ concerns for UTI, monitor I/Os, frequent positioning, fall precautions. Pain, anti-emetic regimen. PT/OT following operative intervention. CM consulted for discharge planning. Pending request for Acute Rehabilitation for 01/02/18 discharge. (2) Hypokalemia: Admission K+ 2.3, repeat level 3, oral supplementation given prior to OR transition, 01/01/18 K 3.7. (3) UTI RULED OUT, Initial concern, Mild appearing UA, UCx WITHOUT GROWTH: UA ? remarkable, UCx results this AM 01/01/18 without growth, d/c IV rocephin. (4) Anemia, Fe Deficiency: Admission Hgb 12.3, normocytic, 01/01/18 Hgb 8.8, VS stable, will increase home Fe supplementation to BID. (5) Subclinical Hypothyroidism: TSH 5.69, FT4 1.17, subclinical, recommend given acute setting repeat thyroid fx studies outpatient. (5) GERD: Famotidine. (6) DVT Prophylaxis: SCDs, Xarelto. (7) CODE status: Full Code. Code Visit Inpatient E&M: 87656 Subs Hosp L2
--- NOTE | 2018-01-01 12:24 | CASEMGMT ---
Social Work Note TEGAN received call from Jocelyn in [facility] stating that pt was denied for RU but that insurance would pay for pt to go to SNF. Jocelyn states that she spoke with [facility] and [facility] will have a bed tomorrow for TCU. SW in to update pt's family of this. Pt's son Jeb present. TEGAN updated Jeb that pt was denied RU at hospital but that insurance will pay for SNF and explained TCU. Jeb states frustration with insurance companies and asked about getting extra therapy for pt at TCU. TEGAN informed Jeb that he will need to talk to TCU about getting extra therapy for pt as this worker is unsure. Jeb states understanding and is agreeable to referral being made to TCU. Jeb states that pt mentioned that she would like to stay at [facility] for rehabilitation. TEGAN placed a call to [facility] and informed her that family is agreeable to TCU and she will submit for pre-cert. Plan: TCU pending pre-cert Katty Conley NANOTECHNOLOGY TECHNICIAN, ABLE BODIED WATCHMAN
[2018-01-01 15:08] VITALS: BP 125/60; PULSE 84; RESP 18; TEMP 37.7; O2SAT 96
--- NOTE | 2018-01-01 15:43 | CASEMGMT ---
Social Work Note SW received message from Saniya in TCU stating that pre-cert has been obtained and pt is able to discharge to TCU tomorrow. TEGAN updated pt of this and placed a call to pt's son Jeb (Kwesi) and updated him that pre-cert has been obtained and pt is able to discharge tomorrow to TCU. Jeb (Kwesi) states understanding and denied any additional needs or concerns at this time. Green sheet on chart. Plan: Pt to discharge to TCU tomorrow Katty Conley AUTOMOBILE DEALER, PARKING LOT ATTENDANT
[2018-01-01 20:17] VITALS: BP 119/60; PULSE 100; RESP 18; TEMP 37.8; O2SAT 94
[2018-01-02 02:35] VITALS: BP 128/60; PULSE 83; RESP 18; TEMP 36.8; O2SAT 98
[2018-01-02] MEDS: HYDROcodone Bitartrate/Apap 5/325 Tablet PO ×2 (02:39→09:04)
[2018-01-02] MEDS: 0.9% NaCl Peripheral Flush Adult/Peds IV ×2 (02:40→13:39)
[2018-01-02] MEDS: Rivaroxaban 10 MG Tablet PO (06:50)
[2018-01-02 07:34] LABS: Absolute Lymphocyte Count 2.22 X10^3/ul (0.83-4.51); Absolute Neutrophil Count 4.4 X10^3/uL (2.0-7.7); Basophil# 0.03 X10^3/uL; Basophil% 0.4 % (0-1); Eosinophil# 0.18 X10^3/uL; Eosinophils% 2.3 % (0-5); Hematocrit 29.1 % (37-47); Hemoglobin 9.3 g/dl (12.0-15.0); Lymphocyte # 2.22 X10^3/ul (4.0); Lymphocyte % 28.9 % (19-41); Mean Corpuscular Hgb 30.1 pg (27.0-32.0); Mean Corpuscular Volume 94.2 fL (81-99); Mean Platelet Vol. 8.9 fl (6.2-12.0); Monocyte# 0.84 X10^3/uL; Monocyte% 10.9 % (0-10); Neutrophil # 4.41 X10^3/uL (2.7-7.7); Neutrophil % 57.4 % (47-70); Platelet Count 325 K/mm3 (150-450); RBC Distribution Width CV 13.2 % (11.6-14.6); RBC Distribution Width SD 43.2 fl (35.1-43.9); Red Blood Count 3.09 M/mm3 (4.2-5.4); White Blood Count 7.7 K/mm3 (4.4-11.0)
[2018-01-02 07:40] LABS: POSITIVE COUNT NO; POSITIVE DIFFERENTIAL NO; POSITIVE MORPHOLOGY NO
[2018-01-02 07:42] LABS: Anion Gap 7 (5-15); BUN 6 mg/dL (7-18); BUN/Creat Ratio 9.4 RATIO (10-20); Calcium,Total 8.2 mg/dL (8.5-10.1); Chloride 100 mmol/L (98-107); Creatinine, Serum 0.64 mg/dL (0.55-1.02); EST Glomerular Filtration Rate 96 mL/min (>60); Est Glom Filt Rate - Afr Amer 116 mL/min (>60); Estimated Creatinine Clearance 41.33 ml/min; Glucose 100 mg/dL (74-106); Potassium 3.5 mmol/L (3.5-5.1); Sodium Level 137 mmol/L (136-145)
[2018-01-02 08:35] VITALS: BP 113/67; PULSE 91; RESP 18; TEMP 36.4; O2SAT 95
[2018-01-02] MEDS: Famotidine 20 MG Tablet PO (08:53)
[2018-01-02] MEDS: Ferrous Sulfate 325 MG Tablet PO (08:53)
--- NOTE | 2018-01-02 08:54 | PCM.PN.HOSP ---
Patient Problems: Active and Suspected Problems (Last Reviewed 12/29/17 @ 16:37 by Gerson Wick DO) Fracture of hip, left, closed (Acute) Subjective: Patient was seen and examined. Complains of some nausea this morning was eating a banana at breakfast. Denies any vomiting or diarrhea. Constipated for almost 6 days. Denies any dysuria or frequency. Complains of feeling hot and cold. Vitals/I&O's: Vital Signs Temp Pulse Resp BP Pulse Ox 97.6 F L 91 18 113/67 95 01/02/18 08:35 01/02/18 08:35 01/02/18 08:35 01/02/18 08:35 01/02/18 08:35 Oxygen Flow Rate (L/min) 1 Oxygen Delivery Method Room Air Weight: 63.5 kg Body Mass Index (BMI) 23.8 Intake and Output for Last 24 Hours 12/31/17 01/01/18 01/02/18 23:59 23:59 23:59 Intake Total 3132 / 3132 1000 / 1000 700 / 700 Output Total 2250 / 2250 1950 / 1950 1000 / 1000 Balance 882 / 882 -950 / -950 -300 / -300 General: Alert, Oriented x3, Cooperative, No apparent distress, - - Hard of hearing HEENT: Atraumatic, PERRLA, EOMI, Normocephalic Oral: Moist Mucosa Neck: Supple Lungs: Clear to auscultation, Normal air movement Cardiovascular: Regular rate, Regular Rhythm, Normal S1, Normal S2, No murmurs Abdomen: Bowel Sounds Present, Soft, Non Tender, Non-Distended, Obese Extremities: No edema, - - Dressing over the left hip, clean, dry, intact, no erythema Skin: No rashes, No breakdown Musculoskeletal: No Tenderness to Palpation of Joints or Extremities Lymphatic: No Cervical, Supraclavicular, or Inguinal Adenopathy Neurological: Cranial nerves II-XII grossly intact, Neuro grossly intact Psych/Mental Status: Normal Affect, Appropriate Microbiology Past 72 Hours 12/30/17 11:25 Urine, Clean Catch Urine Culture - Final Culture exhibits no growth. Laboratory Results 12/30/17 05:10: Crossmatch See Detail 01/02/18 07:06: WBC 7.7, RBC 3.09 L, Hgb 9.3 L, Hct 29.1 L, MCV 94.2, MCH 30.1, MCHC 32.0, RDW 13.2, RDW Differential 43.2, Plt Count 325, MPV 8.9, Immature Gran % (Auto) 0.100, Neut % (Auto) 57.4, Lymph % (Auto) 28.9, [place] % (Auto) 10.9 H, Eos % (Auto) 2.3, Baso % (Auto) 0.4, Absolute Neuts (auto) 4.4, Absolute Lymphs (auto) 2.22, Total Counted Not Reportable 01/02/18 07:06: Sodium 137, Potassium 3.5, Chloride 100, Carbon Dioxide 30.0, Anion Gap 7, BUN 6 L, Creatinine 0.64, Estim Creat Clear Calc 41.33, Est GFR (MDRD) Af Amer 116, Est GFR (MDRD) Non-Af 96, BUN/Creatinine Ratio 9.4 L, Glucose 100, Calcium 8.2 L Current Medications Acetaminophen (Tylenol) 650 mg PO Q6H PRN PRN PRN Reason: Mild Pain (1-3)/Temp > 100.7 F Last Admin: 12/31/17 15:27 Dose: 650 mg Hydrocodone Bitart/Acetaminophen ([place] 5mg-325mg) 1 - 2 tablet PO Q6H PRN PRN PRN Reason: Mild-moderate pain (scale 1-5) Last Admin: 01/02/18 02:39 Dose: 2 tablet Diphenhydramine HCl (Benadryl) 12.5 mg IV Q4H PRN PRN PRN Reason: ITCHING Last Admin: 01/01/18 09:36 Dose: 12.5 mg Famotidine (Pepcid) 20 mg PO DAILY [facility] Last Admin: 01/02/18 08:53 Dose: 20 mg [facility]ous Sulf[facility] ([facility] Sulf[facility]) [facility] Last Admin: 01/02/18 08:53 Dose: 325 mg Hydralazine HCl (Apresoline Iv) 10 mg IV Q4H PRN PRN PRN Reason: SBP > 160 Hydromorphone HCl (Dilaudid Inj) 0.5 - 1 mg IV Q3H PRN PRN PRN Reason: SEVERE PAIN (6-10/10) Last Admin: 12/31/17 21:45 Dose: 0.5 mg Hydromorphone HCl (Dilaudid Inj) 0.5 - 1 mg IV Q3H PRN PRN PRN Reason: SEVERE PAIN (6-10/10) Last Admin: 12/30/17 20:00 Dose: 1 mg Magnesium Hydroxide (Milk Of Magnesia) 30 ml PO DAILY PRN PRN PRN Reason: Constipation Last Admin: 01/01/18 09:36 Dose: 30 ml Ondansetron HCl (Zofran) 4 mg IV Q8H PRN PRN PRN Reason: NAUSEA Rivaroxaban (Xarelto) 10 mg PO DAILY@0600 [facility] Last Admin: 01/02/18 06:50 Dose: 10 mg Sodium Chloride () 5 - 30 ml IV UD PRN PRN Reason: SALINE FLUSH Last Admin: 01/02/18 02:40 Dose: 10 ml Medical Necessity - Tobacco Use Smoking Status: Never smoker Tobacco Use: Non-smoker Assessment/Plan All Active Problems (Last Reviewed 12/29/17 @ 16:37 by Gerson Wick DO) Fracture of hip, left, closed (Acute) 77-year-old female who was admitted on 12/29/2017 after mechanical fall on her left side and sustains a left nondisplaced impacted intertrochanteric fracture of the left proximal femur. 1. POD# 3, status post left cephalo-medullary intertrochanteric nailing, pain is controlled, 07/25, patient is being discharged to TCU for rehab, continue on pain medications, orthopedics will follow. 2. Constipation, opioid related as well as oral iron related, on milk of magnesium, will add Colace and senna 3. GERD, on famotidine 4. Acute on chronic anemia, post op related, on increased oral iron dose, hemoglobin is stable at 9.9 5. DVT prophylaxis with Xarelto. 6. Disposition: Ok for DC Code Visit Inpatient E&M: 19100 Subs Hosp L2
[2018-01-02] MEDS: Magnesium Hydroxide 30 ML UDC PO (09:04)
--- NOTE | 2018-01-02 09:15 | PCM.TXEXTCAR ---
- Diet 12/31/17 04:33 Diet: Regular Diet Is pt able to select menu?: Yes - Routine Orders/Code Status Routine Lab Work: CBC - in 3 days, BMP - in 3 days Code Status: Full Code - Wound(s) LEFT HIP Wound Type: Surgical Incision Dressing Change: Dry Sterile Dressing - Therapies Weight Bearing: Weight bearing as tolerated Extremity Affected:: Left Lower Physical Therapy: Eval and Treat Occupational Therapy: Eval and Treat - Allergies/Procedures Done in Hospital Allergies/Adverse Reactions: Allergies No Known Allergies Allergy (Unverified 07/30/17 10:43) Procedures: - - s/p left cephalomedullary nailing - Type of Care/Length of Stay Estimated LOS: Convalescent Care Less Than 30 days Type of Care Needed: Skilled Rehab Potential: Good Prognosis: Good - Additional Orders/Day of Discharge Additional Orders: Encourage use of incentive spirometer. Day of Discharge: 01/02/18 - Follow Up Care Primary Care Physician: Care Physician,No Primary [Primary Care Provider] - Please follow up with your Primary Care Physician in: Follow-up within 1-2 weeks post TCU discharge Please Follow Up With: Homa Currie DO When: Follow-up within 1-2 weeks for re-eval or per Orthopedic discretion.
--- NOTE | 2018-01-02 11:37 | PCM.DC.SUM ---
Discharge Date and Diagnosis - Problem List Patient Problems: Active and Suspected Problems (Last Reviewed 12/29/17 @ 16:37 by Gerson Wick DO) Fracture of hip, left, closed (Acute) Date of Admission: 12/29/17 Date of Discharge: 01/02/18 - Primary Discharge Diagnosis Active and Suspected Problems (Last Reviewed 12/29/17 @ 16:37 by Gerson Wick DO) Fracture of hip, left, closed (Acute) Debility Hypokalemia Iron deficiency anemia Subclinical hypothyroidism - Secondary Discharge Diagnosis GERD Osteoarthritis Hospital Course and Treatment Imaging Results: Clinical Impression(s) from Imaging Studies Hip/Pelvis X-Ray 12/29/17 14:26 IMPRESSION: Nondisplaced impacted intertrochanteric fracture of the proximal left femur. Electronically Signed: Luke Kumar MD at 15:25 EDT Tel [phone], Service support , Chest X-Ray 12/29/17 15:01 IMPRESSION: Hyperinflation. No acute abnormality is seen. Electronically Signed: Luke Kumar MD at 15:24 EDT Tel [phone], Service support , Hip X-Ray 12/30/17 16:00 IMPRESSION: As above. Electronically Signed: Augustin Cline MD at 0:22 EDT , Service support , Hip X-Ray 12/30/17 18:20 IMPRESSION: Status post ORIF of a left intertrochanteric fracture, in adequate alignment. Electronically Signed: Augustin Cline MD at 0:24 EDT , Service support , Orthopedic surgery- Dr. Currie Operations: - - status post cephalomedullary nailing Summary of Care Provided: 77-year-old female who was admitted on 12/29/2017 after mechanical fall on her left side and sustains a left nondisplaced impacted intertrochanteric fracture of the left proximal femur. She had surgery done on 12/30/17. status post left cephalo-medullary intertrochanteric nailing. Patient was found to be hypokalemic and that was replaced. Potassium remained stable during her hospital stay. She will get a repeat BMP in 3 days Patient was monitored on the telemetry floor with no acute events except for constipation which was addressed. She had a drop in her hemoglobin from 12.0 to 9.3. She was on oral iron daily and that was increased to twice a day. Her TSH was elevated but free t4 was normal. She needs repeat thyroid function tests in 6-8 weeks. Discharge Diet: No Restrictions Discharge Activity: Return to Normal Activity, - - Activities per Acute Rehabilitation Facility parameters May resume sexual activity in: - - Once cleared per Orthopedic Surgery. Weight Bearing Status: Weight bearing as tolerated Keep extremity elevated above heart level: Operative Extremity Call your doctor if your incision/area has: Continuous Slow Oozing, Sudden Increased Bleeding, Increased Pain/ Swelling, Increased Redness, Foul Smelling Discharge, Swelling at the incision site Call your doctor if you observe: Fever of 101 or Higher, Inability to urinate, Inability to have a bowel movement, Shortness of breath, Dizziness, Fainting spells, Chest pain, Uncontrolled pain Home Medications: Medications to take at Discharge Cholecalciferol (Vitamin D3) [Vitamin D3] 5,000 unit PO DAILY 12/29/17 Ferrous Sulfate 325 mg PO BIDCM tablet 01/01/18 Rivaroxaban [Xarelto] 10 mg PO DAILY@0600 tablet 01/01/18 Docusate Sodium [Colace] 100 mg PO BID PRN PRN capsule 01/02/18 Hydrocodone Bitart/Apap 5-325 [[place] 5/325] 1 tab PO Q6H PRN PRN 5 Days #20 tab 01/02/18 Magnesium Hydroxide [Milk Of Magnesia] 30 ml PO DAILY PRN PRN udc 01/02/18 Senna [Senokot] 1 tablet PO BID PRN tablet 01/02/18 Following Prescrptions Were Given to Patient: Hydrocodone Bitart/Apap 5-325 [[place] 5/325] 1 tab PO Q6H PRN PRN 5 Days #20 tab PRN Reason: Mild-moderate pain (scale 1-5) Primary Care Physician: Care Physician,No Primary [Primary Care Provider] - Please follow up with your Primary Care Physician in: Follow-up within 1-2 weeks post TCU discharge Please Follow Up With: Homa Currie DO When: Follow-up within 1-2 weeks for re-eval or per Orthopedic discretion. Disposition: Nursing Home facility Minutes spent on discharge:: 35 Patient Condition:: Stable Medical Necessity - Tobacco Use Smoking Status: Never smoker Tobacco Use: Non-smoker Meaningful Use Info Meaningful Use Diagnoses (Choose all that apply): None applicable Code Visit Inpatient E&M: 06375 Disch Hosp
--- NOTE | 2018-01-02 11:47 | DS.PCM_ITS ---
Discharge Date and Diagnosis - Problem List Patient Problems: Active and Suspected Problems (Last Reviewed 12/29/17 @ 16:37 by Gerson Wick DO) Fracture of hip, left, closed (Acute) Date of Admission: 12/29/17 Date of Discharge: 01/02/18 - Primary Discharge Diagnosis Active and Suspected Problems (Last Reviewed 12/29/17 @ 16:37 by Gerson Wick DO) Fracture of hip, left, closed (Acute) Debility Hypokalemia Iron deficiency anemia Subclinical hypothyroidism - Secondary Discharge Diagnosis GERD Osteoarthritis Hospital Course and Treatment Imaging Results: Clinical Impression(s) from Imaging Studies Hip/Pelvis X-Ray 12/29/17 14:26 IMPRESSION: Nondisplaced impacted intertrochanteric fracture of the proximal left femur. Electronically Signed: Luke Kumar MD at 15:25 EDT Tel [phone], Service support , Chest X-Ray 12/29/17 15:01 IMPRESSION: Hyperinflation. No acute abnormality is seen. Electronically Signed: Luke Kumar MD at 15:24 EDT Tel [phone], Service support , Hip X-Ray 12/30/17 16:00 IMPRESSION: As above. Electronically Signed: Augustin Cline MD at 0:22 EDT , Service support , Hip X-Ray 12/30/17 18:20 IMPRESSION: Status post ORIF of a left intertrochanteric fracture, in adequate alignment. Electronically Signed: Augustin Cline MD at 0:24 EDT , Service support , Orthopedic surgery- Dr. Currie Operations: - - status post cephalomedullary nailing Summary of Care Provided: 77-year-old female who was admitted on 12/29/2017 after mechanical fall on her left side and sustains a left nondisplaced impacted intertrochanteric fracture of the left proximal femur. She had surgery done on 12/30/17. status post left cephalo-medullary intertrochanteric nailing. Patient was found to be hypokalemic and that was replaced. Potassium remained stable during her hospital stay. She will get a repeat BMP in 3 days Patient was monitored on the telemetry floor with no acute events except for constipation which was addressed. She had a drop in her hemoglobin from 12.0 to 9.3. She was on oral iron daily and that was increased to twice a day. Her TSH was elevated but free t4 was normal. She needs repeat thyroid function tests in 6-8 weeks. Discharge Diet: No Restrictions Discharge Activity: Return to Normal Activity, - - Activities per Acute Rehabilitation Facility parameters May resume sexual activity in: - - Once cleared per Orthopedic Surgery. Weight Bearing Status: Weight bearing as tolerated Keep extremity elevated above heart level: Operative Extremity Call your doctor if your incision/area has: Continuous Slow Oozing, Sudden Increased Bleeding, Increased Pain/ Swelling, Increased Redness, Foul Smelling Discharge, Swelling at the incision site Call your doctor if you observe: Fever of 101 or Higher, Inability to urinate, Inability to have a bowel movement, Shortness of breath, Dizziness, Fainting spells, Chest pain, Uncontrolled pain Home Medications: Medications to take at Discharge Cholecalciferol (Vitamin D3) [Vitamin D3] 5,000 unit PO DAILY 12/29/17 Ferrous Sulfate 325 mg PO BIDCM tablet 01/01/18 Rivaroxaban [Xarelto] 10 mg PO DAILY@0600 tablet 01/01/18 Docusate Sodium [Colace] 100 mg PO BID PRN PRN capsule 01/02/18 Hydrocodone Bitart/Apap 5-325 [[place] 5/325] 1 tab PO Q6H PRN PRN 5 Days #20 tab 01/02/18 Magnesium Hydroxide [Milk Of Magnesia] 30 ml PO DAILY PRN PRN udc 01/02/18 Senna [Senokot] 1 tablet PO BID PRN tablet 01/02/18 Following Prescrptions Were Given to Patient: Hydrocodone Bitart/Apap 5-325 [[place] 5/325] 1 tab PO Q6H PRN PRN 5 Days #20 tab PRN Reason: Mild-moderate pain (scale 1-5) Primary Care Physician: Care Physician,No Primary [Primary Care Provider] - Please follow up with your Primary Care Physician in: Follow-up within 1-2 weeks post TCU discharge Please Follow Up With: Homa Currie DO When: Follow-up within 1-2 weeks for re-eval or per Orthopedic discretion. Disposition: Residential facility Minutes spent on discharge:: 35 Patient Condition:: Stable Medical Necessity - Tobacco Use Smoking Status: Never smoker Tobacco Use: Non-smoker Meaningful Use Info Meaningful Use Diagnoses (Choose all that apply): None applicable Code Visit Inpatient E&M: 34704 Disch Hosp
[2018-01-02] MEDS: Ondansetron 4 MG/2 ML Vial IV (13:39)
== END 2018-01-02 14:10 | disposition skilled nursing facility (03) | DRG 482 ==
LOC: ED 16:15 → MS3 16:39
PROVIDERS: Family Medicine; Orthopaedic Surgery; Emergency Provider Emergency Medicine; Visit Provider Internal Medicine
PROC: 0QS706Z Reposition Left Upper Femur with Intramedullary Internal Fixation Device, Open Approach (ICD-10-PCS; principal; 2017-12-30 08:45)
DX: S72.142A Displaced intertrochanteric fracture of left femur, initial encounter for closed fracture (principal); W18.30XA Fall on same level, unspecified, initial encounter; W55.12XA Struck by horse, initial encounter; Y93.89 Activity, other specified; Y92.410 Unspecified street and highway as the place of occurrence of the external cause; M81.0 Age-related osteoporosis without current pathological fracture; K21.9 Gastro-esophageal reflux disease without esophagitis; D50.9 Iron deficiency anemia, unspecified; E87.6 Hypokalemia; E02 Subclinical iodine-deficiency hypothyroidism; H91.90 Unspecified hearing loss, unspecified ear; K59.03 Drug induced constipation; T40.605A Adverse effect of unspecified narcotics, initial encounter
CPT/HCPCS: 36415; 51702; 71045; 73502; 76000; 80048; 80053; 81001; 82306; 83735; 84132; 84439; 84443; 85025; 86850; 86870; 86900; 86902; 86905; 86920; 86922; 87086; 93005; 97110; 97116; 97162; 97165; 97530; 99285; C1713; J7030; A4216; J2405; J3490

== ENCOUNTER 2018-01-02 14:20 | Inpatient (IN) | payer MEDICARE, SELFPAY ==
[2018-01-02 14:37] VITALS: BP 113/68; PULSE 87; RESP 18; TEMP 37.1; O2SAT 94
--- NOTE | 2018-01-02 14:37 | NURSING ---
Pt arrived at 14:20 via wheelchair from [facility]
[2018-01-02 15:21] VITALS: BMI 24.0
[2018-01-02 15:22] VITALS: BMI 24.0
[2018-01-02] MEDS: Magnesium Citrate 300 ML PO (16:57)
[2018-01-02] MEDS: Ferrous Sulfate 325 MG Tablet PO (16:57)
--- NOTE | 2018-01-02 17:14 | PCM.HP.STD ---
Problem List (1) Fall Status: Acute (2) Osteoporosis Status: Chronic (3) GERD (gastroesophageal reflux disease) Status: Chronic (4) Anemia Status: Chronic (5) Low back pain Status: Chronic (6) Fracture of hip, left, closed Status: Acute Qualifiers: History of Present Illness Date of Admission: 01/02/18 Chief Complaint: Here for rehabilitation, strengthening, prior to discharge home alone. The patient is a 77 year old Female with below past medical history presented to [facility] Emergency Department 12/29/2017 with left hip pain. 12/29/2017 Chest X-ray hyperinflation. 12/29/2017 EKG showed normal sinus rhythm, septal infarct, age undetermined. Fall, left hip pain, involved a miniature horse. Unable to walk. 12/29/2017 Admit to Hospital. 12/30/2017 Dr. Currie performed left hip cephalomedullary nailing. 01/02/2018 Admit to TCU with debility, here for rehabilitation, strengthening, prior to discharge home alone. Past Medical History Past Medical History (Chronic Problems): Chronic Problems (Last Reviewed 12/29/17 @ 16:37 by Gerson Wick DO) Osteoporosis (Chronic) GERD (gastroesophageal reflux disease) (Chronic) Anemia (Chronic) Low back pain (Chronic) Medical History: Medical History (Last Reviewed 12/29/17 @ 16:37 by Gerson Wick DO) Acid reflux K21.9 Anemia D64.9 Back problem M53.9 Fatigue R53.83 Osteoporosis M81.0 Allergies No Known Allergies Allergy (Unverified 07/30/17 10:43) Home Medications: Ambulatory Orders Medication Instructions Recorded Cholecalciferol (Vitamin D3) 5,000 unit PO DAILY 12/29/17 [Vitamin D3] Docusate Sodium [Colace] 100 mg PO BID PRN PRN capsule 01/02/18 Ferrous Sulfate 325 mg PO BIDCM 01/02/18 Hydrocodone Bitart/Apap 5-325 1 tab PO Q6H PRN PRN 5 Days #20 tab 01/02/18 [[place] 5/325] Magnesium Hydroxide [Milk Of 30 ml PO DAILY PRN PRN udc 01/02/18 Magnesia] Rivaroxaban [Xarelto] 10 mg PO DAILY@0600 01/02/18 Senna [Senokot] 1 tablet PO BID PRN tablet 01/02/18 Surgical History: no surgical history Psychiatric History: No pertinent psych hx [employer] History: No pertinent SUR[employer] history Lives: Alone Smoking Status: Former smoker Tobacco Use: Non-smoker Alcohol: None Drugs: None - *Family History Maternal Family History: Family History (Last Reviewed 12/29/17 @ 16:38 by Gerson Wick DO) Grandmother Colon cancer Father Colon cancer Heart disease Hypertension Brother Colon cancer Heart disease Mother Heart disease High cholesterol Review of Systems Constitutional: Denies: Chills, Fever, Weight Change HEENT: Denies: Head Aches, Sinus Congestion, Sinus Drainage Cardiovascular: Denies: Chest Pain, Palpitations Respiratory: Denies: Cough, Shortness of breath at rest, Sputum production Gastrointestinal: Reports: Nausea. Denies: Abdominal Pain, Vomiting Genitourinary: Denies: Dysuria Musculoskeletal: Denies: Joint Pain, Joint Tenderness Skin: Denies: Rash, Wounds Neurological: Reports: - - Burning in feet., - - Restless legs.. Denies: Focal weakness, Numbness, Tingling Psychiatric: Denies: Anxiety, Depression, Homicidal Ideations, Suicidal Ideations Hematologic/ Lymphatic: Denies: Easy Bruising, Easy Bleeding VTE Information - Inpt Only VTE Present on Admission: No VTE Mechan Device Prophylaxis: Knee High EMMA Hose VTE Pharm Prophylaxis ordered?: Yes Patient Problems: Active and Suspected Problems (Last Reviewed 12/29/17 @ 16:37 by Gerson Wick DO) Fall (Acute) - Physical Exam General: Alert, Oriented x3, Cooperative HEENT: Atraumatic, PERRLA, EOMI, Normocephalic Neck: Supple, No JVD, Negative Carotid Bruits Lungs: Clear to auscultation, Normal air movement Cardiovascular: Regular rate, No murmurs Abdomen: Bowel Sounds Present, Soft, Non Tender Extremities: No edema, Capillary Refill Less than 3 Seconds Skin: No rashes, No breakdown, Incision - Left hip clean, dry, intact. Musculoskeletal: No Tenderness to Palpation of Joints or Extremities Neurological: Cranial nerves II-XII grossly intact Psych/Mental Status: Normal Affect, Appropriate Vital Signs Temp Pulse Resp BP Pulse Ox 98.7 F 87 18 113/68 94 01/02/18 14:37 01/02/18 14:37 01/02/18 14:37 01/02/18 14:37 01/02/18 14:37 Oxygen Delivery Method Room Air Weight: 63.5 kg Body Mass Index (BMI) 24.0 Assessment/Plan All Active Problems (Last Reviewed 12/29/17 @ 16:37 by Gerson Wick DO) Fracture of hip, left, closed (Acute) Fall (Acute) 77 year old female with below past medical history hospitalized for left hip fracture, underwent left hip cephalomedullary nailing 12/30/[address] Currie, admitted to TCU with debility, here for rehabilitation, strengthening, prior to discharge home. Debility - PT/OT. Pain - Tylenol 1000MG Q8H, Oxycodone 5MG Q4H PRN moderate pain. Bowel - Miralax 17GM daily, Senna/colace 2 tablets BID, Dulcolax 10MG PO daily PRN, Mag Citrate 300ML PO x 1 dose. Pneumonia vaccination - Administer Prevnar 13 and/or Pneumovax 23 as necessary. DVT prophylaxis - Xarelto 10MG thru 02/03/2018. Vitamin D deficiency - D3 5000IU daily. Nutrition - Ensure Enlive 120ML 4x/day. Iron deficiency anemia - Ferrex 150MG twice daily. Insomnia - Melatonin 10MG QHS. Restless Legs Syndrome - Mirapex 0.25MG QHS. Nausea - Zofran 4MG Q6H PRN nausea.
--- NOTE | 2018-01-02 17:26 | HP.PCM_ITS ---
Problem List (1) Fall Status: Acute (2) Osteoporosis Status: Chronic (3) GERD (gastroesophageal reflux disease) Status: Chronic (4) Anemia Status: Chronic (5) Low back pain Status: Chronic (6) Fracture of hip, left, closed Status: Acute Qualifiers: History of Present Illness Date of Admission: 01/02/18 Chief Complaint: Here for rehabilitation, strengthening, prior to discharge home alone. The patient is a 77 year old Female with below past medical history presented to [facility] Emergency Department 12/29/2017 with left hip pain. 12/29/2017 Chest X-ray hyperinflation. 12/29/2017 EKG showed normal sinus rhythm, septal infarct, age undetermined. Fall, left hip pain, involved a miniature horse. Unable to walk. 12/29/2017 Admit to Hospital. 12/30/2017 Dr. Currie performed left hip cephalomedullary nailing. 01/02/2018 Admit to TCU with debility, here for rehabilitation, strengthening, prior to discharge home alone. Past Medical History Past Medical History (Chronic Problems): Chronic Problems (Last Reviewed 12/29/17 @ 16:37 by Gerson Wick DO) Osteoporosis (Chronic) GERD (gastroesophageal reflux disease) (Chronic) Anemia (Chronic) Low back pain (Chronic) Medical History: Medical History (Last Reviewed 12/29/17 @ 16:37 by Gerson Wick DO) Acid reflux K21.9 Anemia D64.9 Back problem M53.9 Fatigue R53.83 Osteoporosis M81.0 Allergies No Known Allergies Allergy (Unverified 07/30/17 10:43) Home Medications: Ambulatory Orders Medication Instructions Recorded Cholecalciferol (Vitamin D3) 5,000 unit PO DAILY 12/29/17 [Vitamin D3] Docusate Sodium [Colace] 100 mg PO BID PRN PRN capsule 01/02/18 Ferrous Sulfate 325 mg PO BIDCM 01/02/18 Hydrocodone Bitart/Apap 5-325 1 tab PO Q6H PRN PRN 5 Days #20 tab 01/02/18 [Victor 5/325] Magnesium Hydroxide [Milk Of 30 ml PO DAILY PRN PRN udc 01/02/18 Magnesia] Rivaroxaban [Xarelto] 10 mg PO DAILY@0600 01/02/18 Senna [Senokot] 1 tablet PO BID PRN tablet 01/02/18 Surgical History: no surgical history Psychiatric History: No pertinent psych hx 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 WEIGHER History: No pertinent BULLION WEIGHER history Lives: Alone Smoking Status: Former smoker Tobacco Use: Non-smoker Alcohol: None Drugs: None - *Family History Maternal Family History: Family History (Last Reviewed 12/29/17 @ 16:38 by Gerson Wick DO) Grandmother Colon cancer Father Colon cancer Heart disease Hypertension Brother Colon cancer Heart disease Mother Heart disease High cholesterol Review of Systems Constitutional: Denies: Chills, Fever, Weight Change HEENT: Denies: Head Aches, Sinus Congestion, Sinus Drainage Cardiovascular: Denies: Chest Pain, Palpitations Respiratory: Denies: Cough, Shortness of breath at rest, Sputum production Gastrointestinal: Reports: Nausea. Denies: Abdominal Pain, Vomiting Genitourinary: Denies: Dysuria Musculoskeletal: Denies: Joint Pain, Joint Tenderness Skin: Denies: Rash, Wounds Neurological: Reports: - - Burning in feet., - - Restless legs.. Denies: Focal weakness, Numbness, Tingling Psychiatric: Denies: Anxiety, Depression, Homicidal Ideations, Suicidal Ideations Hematologic/ Lymphatic: Denies: Easy Bruising, Easy Bleeding VTE Information - Inpt Only VTE Present on Admission: No VTE Mechan Device Prophylaxis: Knee High EMMA Hose VTE Pharm Prophylaxis ordered?: Yes Patient Problems: Active and Suspected Problems (Last Reviewed 12/29/17 @ 16:37 by Gerson Wick DO) Fall (Acute) - Physical Exam General: Alert, Oriented x3, Cooperative HEENT: Atraumatic, PERRLA, EOMI, Normocephalic Neck: Supple, No JVD, Negative Carotid Bruits Lungs: Clear to auscultation, Normal air movement Cardiovascular: Regular rate, No murmurs Abdomen: Bowel Sounds Present, Soft, Non Tender Extremities: No edema, Capillary Refill Less than 3 Seconds Skin: No rashes, No breakdown, Incision - Left hip clean, dry, intact. Musculoskeletal: No Tenderness to Palpation of Joints or Extremities Neurological: Cranial nerves II-XII grossly intact Psych/Mental Status: Normal Affect, Appropriate Vital Signs Temp Pulse Resp BP Pulse Ox 98.7 F 87 18 113/68 94 01/02/18 14:37 01/02/18 14:37 01/02/18 14:37 01/02/18 14:37 01/02/18 14:37 Oxygen Delivery Method Room Air Weight: 63.5 kg Body Mass Index (BMI) 24.0 Assessment/Plan All Active Problems (Last Reviewed 12/29/17 @ 16:37 by Gerson Wick DO) Fracture of hip, left, closed (Acute) Fall (Acute) 77 year old female with below past medical history hospitalized for left hip fracture, underwent left hip cephalomedullary nailing 12/30/[address] Currie, admitted to TCU with debility, here for rehabilitation, strengthening, prior to discharge home. * Debility - PT/OT. * Pain - Tylenol 1000MG Q8H, Oxycodone 5MG Q4H PRN moderate pain. * Bowel - Miralax 17GM daily, Senna/colace 2 tablets BID, Dulcolax 10MG PO daily PRN, Mag Citrate 300ML PO x 1 dose. * Pneumonia vaccination - Administer Prevnar 13 and/or Pneumovax 23 as necessary. * DVT prophylaxis - Xarelto 10MG thru 02/03/2018. * Vitamin D deficiency - D3 5000IU daily. * Nutrition - Ensure Enlive 120ML 4x/day. * Iron deficiency anemia - Ferrex 150MG twice daily. * Insomnia - Melatonin 10MG QHS. * Restless Legs Syndrome - Mirapex 0.25MG QHS. * Nausea - Zofran 4MG Q6H PRN nausea.
[2018-01-02] MEDS: Senna/Docusate Sodium 1 Tablet 2 TABLET PO (18:06)
[2018-01-02] MEDS: Acetaminophen 500 MG Tablet 1000 MG PO (22:06)
[2018-01-03] MEDS: Rivaroxaban 10 MG Tablet PO (05:34)
[2018-01-03] MEDS: Acetaminophen 500 MG Tablet 1000 MG PO ×3 (05:34→21:20)
[2018-01-03] MEDS: Senna/Docusate Sodium 1 Tablet 2 TABLET PO ×2 (05:34→16:57)
[2018-01-03] MEDS: Polyethylene Glycol 3350 17 GM PACKET PO (05:34)
[2018-01-03 06:26] LABS: Absolute Lymphocyte Count 1.78 X10^3/ul (0.83-4.51); Absolute Neutrophil Count 2.5 X10^3/uL (2.0-7.7); Basophil# 0.04 X10^3/uL; Basophil% 0.8 % (0-1); Eosinophil# 0.15 X10^3/uL; Eosinophils% 2.8 % (0-5); Hematocrit 26.9 % (37-47); Hemoglobin 8.7 g/dl (12.0-15.0); Lymphocyte # 1.78 X10^3/ul (4.0); Lymphocyte % 33.7 % (19-41); Mean Corp Hgb Conc 32.3 g/gl (32-36); Mean Corpuscular Hgb 30.5 pg (27.0-32.0); Mean Corpuscular Volume 94.4 fL (81-99); Mean Platelet Vol. 8.6 fl (6.2-12.0); Monocyte# 0.76 X10^3/uL; Monocyte% 14.4 % (0-10); Neutrophil # 2.54 X10^3/uL (2.7-7.7); Neutrophil % 48.1 % (47-70); Platelet Count 328 K/mm3 (150-450); RBC Distribution Width CV 13.3 % (11.6-14.6); RBC Distribution Width SD 43.5 fl (35.1-43.9); Red Blood Count 2.85 M/mm3 (4.2-5.4); White Blood Count 5.3 K/mm3 (4.4-11.0)
[2018-01-03 06:28] LABS: POSITIVE COUNT NO; POSITIVE DIFFERENTIAL NO; POSITIVE MORPHOLOGY NO
[2018-01-03 06:44] LABS: Anion Gap 7 (5-15); BUN 8 mg/dL (7-18); BUN/Creat Ratio 14.8 RATIO (10-20); Calcium,Total 8.7 mg/dL (8.5-10.1); Chloride 101 mmol/L (98-107); Creatinine, Serum 0.54 mg/dL (0.55-1.02); EST Glomerular Filtration Rate 116 mL/min (>60); Est Glom Filt Rate - Afr Amer 140 mL/min (>60); Estimated Creatinine Clearance 41.33 ml/min; Glucose 97 mg/dL (74-106); Potassium 3.6 mmol/L (3.5-5.1); Sodium Level 141 mmol/L (136-145)
[2018-01-03] MEDS: Iron Polysaccharide Complex 150 MG CAPSULE PO ×2 (07:38→16:57)
[2018-01-03 10:00] VITALS: PULSE 84; RESP 18
[2018-01-03] MEDS: Tuberculin,Purif.prot.deriv. 50 TU/ML Vial 5 ML ID (13:30)
[2018-01-03 16:00] VITALS: BP 135/78; PULSE 69; RESP 20; TEMP 35.9; O2SAT 94
--- NOTE | 2018-01-03 16:15 | NURSING ---
Dr. Pang reviewed labs, N.N.O.
--- NOTE | 2018-01-04 00:21 | NURSING ---
Patient c/o of restless jerky legs at night which prevents her from sleeping. Patient states that when this happens at home she usually takes a walk. Dr. Pang notified, new orders given.
[2018-01-04] MEDS: Pramipexole Di-HCl 0.25 MG Tablet PO ×2 (00:44→21:58)
[2018-01-04] MEDS: oxyCODONE 5 MG Tablet PO ×3 (02:48→17:00)
[2018-01-04] MEDS: Acetaminophen 500 MG Tablet 1000 MG PO ×3 (06:47→21:58)
[2018-01-04] MEDS: Polyethylene Glycol 3350 17 GM PACKET PO (06:47)
[2018-01-04] MEDS: Senna/Docusate Sodium 1 Tablet 2 TABLET PO ×2 (06:47→16:57)
[2018-01-04] MEDS: Rivaroxaban 10 MG Tablet PO (06:48)
[2018-01-04] MEDS: Iron Polysaccharide Complex 150 MG CAPSULE PO ×2 (08:42→16:57)
[2018-01-04] MEDS: Ondansetron ODT 4 MG Tablet PO (10:27)
[2018-01-04 15:58] VITALS: BP 107/60; PULSE 72; RESP 16; TEMP 37.2; O2SAT 93
[2018-01-04 20:20] VITALS: PULSE 76; O2SAT 90
[2018-01-04] MEDS: MELATONIN 10 MG TABLET PO (21:58)
[2018-01-05] MEDS: Ondansetron ODT 4 MG Tablet PO (03:03)
[2018-01-05] MEDS: Rivaroxaban 10 MG Tablet PO (05:26)
[2018-01-05] MEDS: Polyethylene Glycol 3350 17 GM PACKET PO (05:26)
[2018-01-05] MEDS: Senna/Docusate Sodium 1 Tablet 2 TABLET PO ×2 (05:26→16:58)
[2018-01-05] MEDS: Acetaminophen 500 MG Tablet 1000 MG PO ×3 (05:26→22:10)
[2018-01-05] MEDS: oxyCODONE 5 MG Tablet PO ×2 (08:07→17:00)
--- NOTE | 2018-01-05 08:07 | RAD_ITS ---
STUDY: X-RAY - ABDOMEN/PELVIS REASON FOR EXAM: Female, 77 years old. Nausea and vomiting TECHNIQUE: Two AP supine views of the abdomen and pelvis. COMPARISON: None. FINDINGS: Scattered gaseous distended loops of small and large bowel suggesting postoperative ileus. No evidence of small bowel obstruction. There is no demonstrated free abdominal air. The visualized liver, spleen and kidneys are grossly normal in size and morphology. Normal soft tissue structures. There are diffuse degenerative changes of the visualized lumbar spine. Postsurgical changes of the left hip RAD/Abdomen Single View (Portable) IMPRESSION: Probable postoperative ileus. No evidence of small bowel obstruction or free air. Electronically Signed: Kenneth Fall DO at 9:03 EDT Tel , Service support ,
[2018-01-05] MEDS: Iron Polysaccharide Complex 150 MG CAPSULE PO ×2 (08:09→16:57)
--- NOTE | 2018-01-05 08:18 | PCM.PN.RX ---
<Bryan Bell D - Last Filed: 01/05/18 08:18> Progress Note - Pharmacy Subjective: TCU Admission Objective: Allergies No Known Allergies Allergy (Unverified 07/30/17 10:43) Current Medications Generic Name Dose Route Start Last Admin Trade Name Freq PRN Reason Stop Dose Admin Acetaminophen 1,000 mg 01/02/18 22:00 01/05/18 05:26 Tylenol PO 1,000 mg Q8 [facility] Administration Bisacodyl 10 mg 01/02/18 17:28 Dulcolax PO DAILY PRN Constipation Cholecalciferol 5,000 unit 01/03/18 08:00 01/05/18 08:09 Vitamin D PO 5,000 unit DAILYCM [facility] Administration Melatonin 10 mg 01/04/18 22:00 01/04/18 21:58 Melatonin PO 10 mg QHS [facility] Administration Nutritional Formula (Lactose Free) 120 ml 01/02/18 17:00 01/05/18 05:25 Ensure Enlive PO Not Given 4X/DAY [facility] Oxycodone HCl 5 mg 01/02/18 17:29 01/05/18 08:07 Oxyir PO 5 mg Q4H PRN PRN Administration MODERATE PAIN (4-5/10) Polyethylene Glycol 17 gm 01/03/18 06:00 01/05/18 05:26 Miralax PO 17 gm DAILY [facility] Administration Polysaccharide Iron Complex 150 mg 01/03/18 08:00 01/05/18 08:09 Ferrex 150 PO 150 mg BIDCM [facility] Administration Pramipexole Dihydrochloride 0.25 mg 01/04/18 00:20 01/04/18 21:58 Mirapex PO 0.25 mg QHS [facility] Administration Promethazine HCl 25 mg 01/05/18 08:04 Phenergan Tablet PO Q6H PRN PRN NAUSEA/VOMITING Rivaroxaban 10 mg 01/03/18 06:00 01/05/18 05:26 Xarelto PO 02/03/18 23:59 10 mg DAILY@0600 [facility] Administration Senna/Docusate Sodium 2 tablet 01/02/18 18:00 01/05/18 05:26 Senokot-S, Rowan-Colace PO 2 tablet BID [facility] Administration Sodium Chloride 5 - 30 ml 01/02/18 17:03 IV UD PRN SALINE FLUSH Tuberculin PPD 5 tu 01/10/18 10:00 Tubersol, Aplisol, Ppd ID 01/10/18 10:01 X1 ONE Problem List (Last Reviewed 12/29/17 @ 16:37 by Gerson Wick DO) Fall (Acute) Osteoporosis (Chronic) GERD (gastroesophageal reflux disease) (Chronic) Anemia (Chronic) Low back pain (Chronic) Vital Signs Temp Pulse Resp BP Pulse Ox 98.9 F 76 16 107/60 90 01/04/18 15:58 01/04/18 20:20 01/04/18 15:58 01/04/18 15:58 01/04/18 20:20 Oxygen Delivery Method Room Air Weight: 63.5 kg Body Mass Index (BMI) 24.0 Sodium 141 mmol/L (136-145) 01/03/18 06:06 Potassium 3.6 mmol/L (3.5-5.1) 01/03/18 06:06 Chloride 101 mmol/L (98-107) 01/03/18 06:06 Carbon Dioxide 33.0 mmol/L (21.0-32.0) H 01/03/18 06:06 Anion Gap 7 (5-15) 01/03/18 06:06 BUN 8 mg/dL (7-18) 01/03/18 06:06 Creatinine 0.54 mg/dL (0.55-1.02) L 01/03/18 06:06 Est GFR (MDRD) Af Amer 140 mL/min (>60) 01/03/18 06:06 Est GFR (MDRD) Non-Af 116 mL/min (>60) 01/03/18 06:06 BUN/Creatinine Ratio 14.8 RATIO (10-20) 01/03/18 06:06 Glucose 97 mg/dL (74-106) 01/03/18 06:06 Assessment/Plan: 1) Pain APAP scheduled, oxycodone for moderate pain. Continue to monitor daily pain scores, prn medication use. 2) DVT PPx Rivaroxaban daily. Continue to monitor for s/s bleeding/clot. 3) GI Promethazine for n/v. Continue to monitor prn medication use, for GI distress. 4) Nutrition Ensure, Fe, D. Continue to monitor clinically. 5) RLS Pramipexole at HS. Continue to monitor for RLS symptoms. 6) Insomnia Melatonin at HS for sleep. Continue to monitor for insomnia. Psychotropic Medications: None Unnecessary Medications: None Bowel Regimen: 7) Senna/s, PEG, prn bisacodyl. Continue to monitor prn medication use, for constipation/diarrhea. Date of Note:: 01/05/18 - Provider Comments Provider responsibility: Provider responsible to enter orders to implement recommendations <Yasir Pang Chi - Last Filed: 01/05/18 08:39> Progress Note - Pharmacy Subjective: [] Objective: Allergies No Known Allergies Allergy (Unverified 07/30/17 10:43) Current Medications Generic Name Dose Route Start Last Admin Trade Name Freq PRN Reason Stop Dose Admin Acetaminophen 1,000 mg 01/02/18 22:00 01/05/18 05:26 Tylenol PO 1,000 mg Q8 [facility] Administration Bisacodyl 10 mg 01/02/18 17:28 Dulcolax PO DAILY PRN Constipation Cholecalciferol 5,000 unit 01/03/18 08:00 01/05/18 08:09 Vitamin D PO 5,000 unit DAILYCM [facility] Administration Melatonin 10 mg 01/04/18 22:00 01/04/18 21:58 Melatonin PO 10 mg QHS [facility] Administration Metoclopramide HCl 10 mg 01/05/18 11:00 Reglan PO 01/12/18 11:01 ACHS [facility] Nutritional Formula (Lactose Free) 120 ml 01/02/18 17:00 01/05/18 05:25 Ensure Enlive PO Not Given 4X/DAY [facility] Oxycodone HCl 5 mg 01/02/18 17:29 01/05/18 08:07 Oxyir PO 5 mg Q4H PRN PRN Administration MODERATE PAIN (4-5/10) Polyethylene Glycol 17 gm 01/03/18 06:00 01/05/18 05:26 Miralax PO 17 gm DAILY [facility] Administration Polysaccharide Iron Complex 150 mg 01/03/18 08:00 01/05/18 08:09 Ferrex 150 PO 150 mg BIDCM [facility] Administration Pramipexole Dihydrochloride 0.25 mg 01/04/18 00:20 01/04/18 21:58 Mirapex PO 0.25 mg QHS [facility] Administration Promethazine HCl 25 mg 01/05/18 08:04 Phenergan Tablet PO Q6H PRN PRN NAUSEA/VOMITING Rivaroxaban 10 mg 01/03/18 06:00 01/05/18 05:26 Xarelto PO 02/03/18 23:59 10 mg DAILY@0600 [facility] Administration Senna/Docusate Sodium 2 tablet 01/02/18 18:00 01/05/18 05:26 Senokot-S, Rowan-Colace PO 2 tablet BID [facility] Administration Sodium Chloride 5 - 30 ml 01/02/18 17:03 IV UD PRN SALINE FLUSH Tuberculin PPD 5 tu 01/10/18 10:00 Tubersol, Aplisol, Ppd ID 01/10/18 10:01 X1 ONE Problem List (Last Reviewed 12/29/17 @ 16:37 by Gerson Wick DO) Fall (Acute) Osteoporosis (Chronic) GERD (gastroesophageal reflux disease) (Chronic) Anemia (Chronic) Low back pain (Chronic) Vital Signs Temp Pulse Resp BP Pulse Ox 98.9 F 76 16 107/60 90 01/04/18 15:58 01/04/18 20:20 01/04/18 15:58 01/04/18 15:58 01/04/18 20:20 Oxygen Delivery Method Room Air Weight: 63.5 kg Body Mass Index (BMI) 24.0 Sodium 141 mmol/L (136-145) 01/03/18 06:06 Potassium 3.6 mmol/L (3.5-5.1) 01/03/18 06:06 Chloride 101 mmol/L (98-107) 01/03/18 06:06 Carbon Dioxide 33.0 mmol/L (21.0-32.0) H 01/03/18 06:06 Anion Gap 7 (5-15) 01/03/18 06:06 BUN 8 mg/dL (7-18) 01/03/18 06:06 Creatinine 0.54 mg/dL (0.55-1.02) L 01/03/18 06:06 Est GFR (MDRD) Af Amer 140 mL/min (>60) 01/03/18 06:06 Est GFR (MDRD) Non-Af 116 mL/min (>60) 01/03/18 06:06 BUN/Creatinine Ratio 14.8 RATIO (10-20) 01/03/18 06:06 Glucose 97 mg/dL (74-106) 01/03/18 06:06 Assessment/Plan: Psychotropic Medications: Unnecessary Medications: Bowel Regimen: - Provider Comments Provider responsibility: Provider responsible to enter orders to implement recommendations Provider Comments to Recommendations by Pharmacy: Agree
--- NOTE | 2018-01-05 08:24 | PHA.CONS_ITS ---
<Bryan Bell D - Last Filed: 01/05/18 08:18> Progress Note - Pharmacy Subjective: TCU Admission Objective: Allergies No Known Allergies Allergy (Unverified 07/30/17 10:43) Current Medications Generic Name Dose Route Start Last Admin Trade Name Freq PRN Reason Stop Dose Admin Acetaminophen 1,000 mg 01/02/18 22:00 01/05/18 05:26 Tylenol PO 1,000 mg Q8 [facility] Administration Bisacodyl 10 mg 01/02/18 17:28 Dulcolax PO DAILY PRN Constipation Cholecalciferol 5,000 unit 01/03/18 08:00 01/05/18 08:09 Vitamin D PO 5,000 unit DAILYCM [facility] Administration Melatonin 10 mg 01/04/18 22:00 01/04/18 21:58 Melatonin PO 10 mg QHS [facility] Administration Nutritional Formula (Lactose Free) 120 ml 01/02/18 17:00 01/05/18 05:25 Ensure Enlive PO Not Given 4X/DAY [facility] Oxycodone HCl 5 mg 01/02/18 17:29 01/05/18 08:07 Oxyir PO 5 mg Q4H PRN PRN Administration MODERATE PAIN (4-5/10) Polyethylene Glycol 17 gm 01/03/18 06:00 01/05/18 05:26 Miralax PO 17 gm DAILY [facility] Administration Polysaccharide Iron Complex 150 mg 01/03/18 08:00 01/05/18 08:09 Ferrex 150 PO 150 mg BIDCM [facility] Administration Pramipexole Dihydrochloride 0.25 mg 01/04/18 00:20 01/04/18 21:58 Mirapex PO 0.25 mg QHS [facility] Administration Promethazine HCl 25 mg 01/05/18 08:04 Phenergan Tablet PO Q6H PRN PRN NAUSEA/VOMITING Rivaroxaban 10 mg 01/03/18 06:00 01/05/18 05:26 Xarelto PO 02/03/18 23:59 10 mg DAILY@0600 [facility] Administration Senna/Docusate Sodium 2 tablet 01/02/18 18:00 01/05/18 05:26 Senokot-S, Rowan-Colace PO 2 tablet BID [facility] Administration Sodium Chloride 5 - 30 ml 01/02/18 17:03 IV UD PRN SALINE FLUSH Tuberculin PPD 5 tu 01/10/18 10:00 Tubersol, Aplisol, Ppd ID 01/10/18 10:01 X1 ONE Problem List (Last Reviewed 12/29/17 @ 16:37 by Gerson Wick DO) Fall (Acute) Osteoporosis (Chronic) GERD (gastroesophageal reflux disease) (Chronic) Anemia (Chronic) Low back pain (Chronic) Vital Signs Temp Pulse Resp BP Pulse Ox 98.9 F 76 16 107/60 90 01/04/18 15:58 01/04/18 20:20 01/04/18 15:58 01/04/18 15:58 01/04/18 20:20 Oxygen Delivery Method Room Air Weight: 63.5 kg Body Mass Index (BMI) 24.0 Sodium 141 mmol/L (136-145) 01/03/18 06:06 Potassium 3.6 mmol/L (3.5-5.1) 01/03/18 06:06 Chloride 101 mmol/L (98-107) 01/03/18 06:06 Carbon Dioxide 33.0 mmol/L (21.0-32.0) H 01/03/18 06:06 Anion Gap 7 (5-15) 01/03/18 06:06 BUN 8 mg/dL (7-18) 01/03/18 06:06 Creatinine 0.54 mg/dL (0.55-1.02) L 01/03/18 06:06 Est GFR (MDRD) Af Amer 140 mL/min (>60) 01/03/18 06:06 Est GFR (MDRD) Non-Af 116 mL/min (>60) 01/03/18 06:06 BUN/Creatinine Ratio 14.8 RATIO (10-20) 01/03/18 06:06 Glucose 97 mg/dL (74-106) 01/03/18 06:06 Assessment/Plan: 1) Pain APAP scheduled, oxycodone for moderate pain. Continue to monitor daily pain scores, prn medication use. 2) DVT PPx Rivaroxaban daily. Continue to monitor for s/s bleeding/clot. 3) GI Promethazine for n/v. Continue to monitor prn medication use, for GI distress. 4) Nutrition Ensure, Fe, D. Continue to monitor clinically. 5) RLS Pramipexole at HS. Continue to monitor for RLS symptoms. 6) Insomnia Melatonin at HS for sleep. Continue to monitor for insomnia. Psychotropic Medications: None Unnecessary Medications: None Bowel Regimen: 7) Senna/s, PEG, prn bisacodyl. Continue to monitor prn medication use, for constipation/diarrhea. Date of Note:: 01/05/18 - Provider Comments Provider responsibility: Provider responsible to enter orders to implement recommendations <Yasir Pang Chi - Last Filed: 01/05/18 08:39> Progress Note - Pharmacy Subjective: [] Objective: Allergies No Known Allergies Allergy (Unverified 07/30/17 10:43) Current Medications Generic Name Dose Route Start Last Admin Trade Name Freq PRN Reason Stop Dose Admin Acetaminophen 1,000 mg 01/02/18 22:00 01/05/18 05:26 Tylenol PO 1,000 mg Q8 [facility] Administration Bisacodyl 10 mg 01/02/18 17:28 Dulcolax PO DAILY PRN Constipation Cholecalciferol 5,000 unit 01/03/18 08:00 01/05/18 08:09 Vitamin D PO 5,000 unit DAILYCM [facility] Administration Melatonin 10 mg 01/04/18 22:00 01/04/18 21:58 Melatonin PO 10 mg QHS [facility] Administration Metoclopramide HCl 10 mg 01/05/18 11:00 Reglan PO 01/12/18 11:01 ACHS [facility] Nutritional Formula (Lactose Free) 120 ml 01/02/18 17:00 01/05/18 05:25 Ensure Enlive PO Not Given 4X/DAY [facility] Oxycodone HCl 5 mg 01/02/18 17:29 01/05/18 08:07 Oxyir PO 5 mg Q4H PRN PRN Administration MODERATE PAIN (4-5/10) Polyethylene Glycol 17 gm 01/03/18 06:00 01/05/18 05:26 Miralax PO 17 gm DAILY [facility] Administration Polysaccharide Iron Complex 150 mg 01/03/18 08:00 01/05/18 08:09 Ferrex 150 PO 150 mg BIDCM [facility] Administration Pramipexole Dihydrochloride 0.25 mg 01/04/18 00:20 01/04/18 21:58 Mirapex PO 0.25 mg QHS [facility] Administration Promethazine HCl 25 mg 01/05/18 08:04 Phenergan Tablet PO Q6H PRN PRN NAUSEA/VOMITING Rivaroxaban 10 mg 01/03/18 06:00 01/05/18 05:26 Xarelto PO 02/03/18 23:59 10 mg DAILY@0600 [facility] Administration Senna/Docusate Sodium 2 tablet 01/02/18 18:00 01/05/18 05:26 Senokot-S, Rowan-Colace PO 2 tablet BID [facility] Administration Sodium Chloride 5 - 30 ml 01/02/18 17:03 IV UD PRN SALINE FLUSH Tuberculin PPD 5 tu 01/10/18 10:00 Tubersol, Aplisol, Ppd ID 01/10/18 10:01 X1 ONE Problem List (Last Reviewed 12/29/17 @ 16:37 by Gerson Wick DO) Fall (Acute) Osteoporosis (Chronic) GERD (gastroesophageal reflux disease) (Chronic) Anemia (Chronic) Low back pain (Chronic) Vital Signs Temp Pulse Resp BP Pulse Ox 98.9 F 76 16 107/60 90 01/04/18 15:58 01/04/18 20:20 01/04/18 15:58 01/04/18 15:58 01/04/18 20:20 Oxygen Delivery Method Room Air Weight: 63.5 kg Body Mass Index (BMI) 24.0 Sodium 141 mmol/L (136-145) 01/03/18 06:06 Potassium 3.6 mmol/L (3.5-5.1) 01/03/18 06:06 Chloride 101 mmol/L (98-107) 01/03/18 06:06 Carbon Dioxide 33.0 mmol/L (21.0-32.0) H 01/03/18 06:06 Anion Gap 7 (5-15) 01/03/18 06:06 BUN 8 mg/dL (7-18) 01/03/18 06:06 Creatinine 0.54 mg/dL (0.55-1.02) L 01/03/18 06:06 Est GFR (MDRD) Af Amer 140 mL/min (>60) 01/03/18 06:06 Est GFR (MDRD) Non-Af 116 mL/min (>60) 01/03/18 06:06 BUN/Creatinine Ratio 14.8 RATIO (10-20) 01/03/18 06:06 Glucose 97 mg/dL (74-106) 01/03/18 06:06 Assessment/Plan: Psychotropic Medications: Unnecessary Medications: Bowel Regimen: - Provider Comments Provider responsibility: Provider responsible to enter orders to implement recommendations Provider Comments to Recommendations by Pharmacy: Agree
--- NOTE | 2018-01-05 10:02 | NURSING ---
[place] reviewed by Dr. Pang, NO for IV NS @ 60mL/hr continuous. Patient updated.
[2018-01-05] MEDS: proMETHazine 25 MG Tablet PO (10:05)
[2018-01-05] MEDS: Metoclopramide 10 MG Tablet PO ×3 (12:16→22:10)
[2018-01-05] MEDS: 0.9% Normal Saline 1,000 ML 60 ML IV (14:46)
[2018-01-05 16:00] VITALS: BP 121/67; PULSE 67; RESP 20; TEMP 36.7; O2SAT 92
[2018-01-05] MEDS: Pramipexole Di-HCl 0.25 MG Tablet PO (22:10)
[2018-01-05] MEDS: MELATONIN 10 MG TABLET PO (22:10)
[2018-01-06] MEDS: oxyCODONE 5 MG Tablet PO ×2 (00:42→16:20)
[2018-01-06] MEDS: Metoclopramide 10 MG Tablet PO ×4 (05:32→21:20)
[2018-01-06] MEDS: Acetaminophen 500 MG Tablet 1000 MG PO ×3 (05:32→21:19)
[2018-01-06] MEDS: Rivaroxaban 10 MG Tablet PO (05:32)
[2018-01-06] MEDS: Senna/Docusate Sodium 1 Tablet 2 TABLET PO ×2 (05:32→16:20)
[2018-01-06] MEDS: Iron Polysaccharide Complex 150 MG CAPSULE PO ×2 (08:05→16:20)
--- NOTE | 2018-01-06 10:32 | CASEMGMT ---
Plan of care meeting held. Resident present as well as resident family. No discharge date set at this time. Resident to continue with further care and treatment on the Transitional Care Unit. Resident with insurance update due on 01/07/18, resident and resident family aware that continued stay approval is not guaranteed. Resident plans to discharge home alone at time of discharge with home health vs. outpatient therapy services. Support given. Will continue to follow. Korina FREGOSO, CARPENTER'S HELPER
--- NOTE | 2018-01-06 12:24 | NURSING ---
Call to Dr. Currie's office at this time and her clinical direct sales representative states that the protocol for staple removal is fourteen days after surgery. Will relay this info to Dr. Pang. Also inquired about patient showering and she states she will ask Dr. Currie tomorrow 01/07 and call back with a recommendation for this.
[2018-01-06] MEDS: 0.9% NaCl Peripheral Flush Adult/Peds IV (15:58)
[2018-01-06 16:00] VITALS: BP 116/54; PULSE 83; RESP 20; TEMP 36.6; O2SAT 96
[2018-01-06] MEDS: Doxepin Hcl 25 MG Capsule PO (21:19)
[2018-01-06] MEDS: Pramipexole Di-HCl 0.25 MG Tablet PO (21:20)
[2018-01-07] MEDS: Polyethylene Glycol 3350 17 GM PACKET PO (04:29)
[2018-01-07] MEDS: oxyCODONE 5 MG Tablet PO ×2 (04:32→09:56)
[2018-01-07] MEDS: Senna/Docusate Sodium 1 Tablet 2 TABLET PO ×2 (05:01→16:27)
[2018-01-07] MEDS: Metoclopramide 10 MG Tablet PO ×4 (05:01→21:36)
[2018-01-07] MEDS: Acetaminophen 500 MG Tablet 1000 MG PO ×3 (05:01→21:36)
[2018-01-07] MEDS: Rivaroxaban 10 MG Tablet PO (05:01)
[2018-01-07] MEDS: Iron Polysaccharide Complex 150 MG CAPSULE PO ×2 (08:00→16:25)
--- NOTE | 2018-01-07 08:05 | NURSING ---
pt assisted from BSC to bed this AM after voiding. pt c/o not sleeping well d/t RLS lastnight. Dr Pang aware, new orders entered.
--- NOTE | 2018-01-07 11:00 | CASEMGMT ---
Insurance Clinical information faxed. Pending continued stay approval at this time. Auth#[id number] Korina FREGOSO, EXECUTIVE VICE PRESIDENT AND CHIEF OPERATING OFFICER
--- NOTE | 2018-01-07 14:30 | CASEMGMT ---
Brief interview for mental status (BIMS) and resident mood interview (PHQ-9) completed on this day. BIMS score 13/15. PHQ-9 score 09/08
--- NOTE | 2018-01-07 15:24 | MDS.RN ---
pain interview for shane 01/09/18 completed.
[2018-01-07 16:00] VITALS: BP 106/64; PULSE 64; RESP 18; TEMP 36.9; O2SAT 93
[2018-01-07] MEDS: Pramipexole Di-HCl 0.5 MG Tablet PO (21:36)
[2018-01-07] MEDS: traZODone 100 MG Tablet PO (21:36)
[2018-01-08] MEDS: Rivaroxaban 10 MG Tablet PO (05:50)
[2018-01-08] MEDS: Acetaminophen 500 MG Tablet 1000 MG PO ×3 (05:50→22:23)
[2018-01-08] MEDS: Bisacodyl 5 MG Tablet 10 MG PO (05:50)
[2018-01-08] MEDS: Metoclopramide 10 MG Tablet PO ×4 (05:50→22:23)
[2018-01-08] MEDS: Senna/Docusate Sodium 1 Tablet 2 TABLET PO (05:50)
[2018-01-08] MEDS: Polyethylene Glycol 3350 17 GM PACKET PO (05:50)
--- NOTE | 2018-01-08 09:19 | NURSING ---
Addendum entered by Liliya Miramontes 01/08/18 10:20: PT WITH LG DARK STOOL AFTER SSE. REYES LOPEZ, TARA UPDATED. NEW ORDER TO CHECK LABS TODAY. Original Note: PT LAST BM 01/04, SOAP SUDS ENEMA GIVEN, PT C/O NAUSEA BECAUSE OF IT. PT ON BSC EXPELLING STOOL NOW. TOLERATED WELL. PT STATES SHE HAS HAD HISTORY OF CHRONIC CONSTIPATION. PASSING LG AMTS OF FLATUS WELL.
[2018-01-08 10:00] VITALS: PULSE 64; RESP 16
[2018-01-08] MEDS: Iron Polysaccharide Complex 150 MG CAPSULE PO ×2 (10:21→16:35)
--- NOTE | 2018-01-08 10:31 | CASEMGMT ---
Insurance Continued stay approved with next update due on 01/13/18. Auth#[id number] Korina FREGOSO, DECORATION CHECKER
[2018-01-08 10:52] LABS: Absolute Lymphocyte Count 1.36 X10^3/ul (0.83-4.51); Absolute Neutrophil Count 4.7 X10^3/uL (2.0-7.7); Basophil# 0.02 X10^3/uL; Basophil% 0.3 % (0-1); Eosinophil# 0.11 X10^3/uL; Eosinophils% 1.6 % (0-5); Hematocrit 32.2 % (37-47); Hemoglobin 9.9 g/dl (12.0-15.0); Lymphocyte # 1.36 X10^3/ul (4.0); Lymphocyte % 19.4 % (19-41); Mean Corp Hgb Conc 30.7 g/gl (32-36); Mean Corpuscular Hgb 29.4 pg (27.0-32.0); Mean Corpuscular Volume 95.5 fL (81-99); Mean Platelet Vol. 8.1 fl (6.2-12.0); Monocyte# 0.84 X10^3/uL; Neutrophil # 4.66 X10^3/uL (2.7-7.7); Neutrophil % 66.4 % (47-70); Platelet Count 460 K/mm3 (150-450); RBC Distribution Width CV 14.9 % (11.6-14.6); RBC Distribution Width SD 49.6 fl (35.1-43.9); Red Blood Count 3.37 M/mm3 (4.2-5.4)
[2018-01-08 10:59] LABS: POSITIVE COUNT NO; POSITIVE DIFFERENTIAL NO; POSITIVE MORPHOLOGY NO
[2018-01-08 11:04] LABS: Anion Gap 6 (5-15); BUN 13 mg/dL (7-18); BUN/Creat Ratio 20.6 RATIO (10-20); Calcium,Total 9.1 mg/dL (8.5-10.1); Chloride 104 mmol/L (98-107); Creatinine, Serum 0.63 mg/dL (0.55-1.02); EST Glomerular Filtration Rate 97 mL/min (>60); Est Glom Filt Rate - Afr Amer 118 mL/min (>60); Estimated Creatinine Clearance 41.33 ml/min; Glucose 99 mg/dL (74-106); Potassium 3.9 mmol/L (3.5-5.1); Sodium Level 141 mmol/L (136-145)
[2018-01-08 15:37] VITALS: BP 128/63; PULSE 71; RESP 16; TEMP 35.5; O2SAT 96
[2018-01-08] MEDS: Pramipexole Di-HCl 0.5 MG Tablet PO (22:21)
[2018-01-08] MEDS: traZODone 100 MG Tablet PO (22:22)
[2018-01-09] MEDS: oxyCODONE 5 MG Tablet PO ×2 (02:27→09:58)
[2018-01-09] MEDS: Polyethylene Glycol 3350 17 GM PACKET PO (06:01)
[2018-01-09] MEDS: Rivaroxaban 10 MG Tablet PO (06:02)
[2018-01-09] MEDS: Acetaminophen 500 MG Tablet 1000 MG PO ×3 (06:02→22:07)
[2018-01-09] MEDS: Senna/Docusate Sodium 1 Tablet 2 TABLET PO ×2 (06:02→17:09)
[2018-01-09] MEDS: Metoclopramide 10 MG Tablet PO ×4 (06:03→22:07)
[2018-01-09] MEDS: Iron Polysaccharide Complex 150 MG CAPSULE PO ×2 (08:50→17:09)
[2018-01-09 15:41] VITALS: BP 125/63; PULSE 78; RESP 16; TEMP 37.1; O2SAT 97
[2018-01-09 19:55] VITALS: PULSE 80; O2SAT 97
[2018-01-09] MEDS: traZODone 100 MG Tablet PO (22:06)
[2018-01-09] MEDS: Pramipexole Di-HCl 0.5 MG Tablet PO (22:06)
[2018-01-10] MEDS: Polyethylene Glycol 3350 17 GM PACKET PO (04:53)
[2018-01-10] MEDS: Rivaroxaban 10 MG Tablet PO (04:55)
[2018-01-10] MEDS: Senna/Docusate Sodium 1 Tablet 2 TABLET PO ×2 (04:55→17:41)
[2018-01-10] MEDS: Metoclopramide 10 MG Tablet PO ×4 (04:55→21:47)
[2018-01-10] MEDS: Acetaminophen 500 MG Tablet 1000 MG PO ×3 (04:55→21:47)
[2018-01-10 06:24] LABS: Absolute Lymphocyte Count 1.62 X10^3/ul (0.83-4.51); Absolute Neutrophil Count 2.8 X10^3/uL (2.0-7.7); Basophil# 0.03 X10^3/uL; Basophil% 0.6 % (0-1); Eosinophil# 0.19 X10^3/uL; Eosinophils% 3.5 % (0-5); Hematocrit 30.5 % (37-47); Hemoglobin 9.6 g/dl (12.0-15.0); Lymphocyte # 1.62 X10^3/ul (4.0); Lymphocyte % 30.2 % (19-41); Mean Corp Hgb Conc 31.5 g/gl (32-36); Mean Corpuscular Hgb 30.7 pg (27.0-32.0); Mean Corpuscular Volume 97.4 fL (81-99); Mean Platelet Vol. 8.1 fl (6.2-12.0); Monocyte# 0.71 X10^3/uL; Monocyte% 13.2 % (0-10); Neutrophil % 52.1 % (47-70); Platelet Count 500 K/mm3 (150-450); RBC Distribution Width CV 14.6 % (11.6-14.6); RBC Distribution Width SD 48.1 fl (35.1-43.9); Red Blood Count 3.13 M/mm3 (4.2-5.4); White Blood Count 5.4 K/mm3 (4.4-11.0)
[2018-01-10 06:26] LABS: POSITIVE COUNT NO; POSITIVE DIFFERENTIAL NO; POSITIVE MORPHOLOGY NO
[2018-01-10 06:46] LABS: Anion Gap 9 (5-15); BUN 12 mg/dL (7-18); Calcium,Total 8.8 mg/dL (8.5-10.1); Chloride 105 mmol/L (98-107); Creatinine, Serum 0.63 mg/dL (0.55-1.02); EST Glomerular Filtration Rate 97 mL/min (>60); Est Glom Filt Rate - Afr Amer 117 mL/min (>60); Estimated Creatinine Clearance 41.33 ml/min; Glucose 118 mg/dL (74-106); Potassium 3.4 mmol/L (3.5-5.1); Sodium Level 142 mmol/L (136-145)
[2018-01-10] MEDS: Iron Polysaccharide Complex 150 MG CAPSULE PO ×2 (08:19→17:41)
[2018-01-10] MEDS: Tuberculin,Purif.prot.deriv. 50 TU/ML Vial 5 ML ID (11:39)
--- NOTE | 2018-01-10 12:03 | NURSING ---
Potassium 3.4, John Sosa, TARA review, NO for KCL 10mEQ PO daily.
[2018-01-10 16:00] VITALS: BP 136/72; PULSE 98; RESP 18; TEMP 36.6; O2SAT 98
[2018-01-10 19:53] VITALS: PULSE 81; O2SAT 97
[2018-01-10] MEDS: traZODone 100 MG Tablet PO (21:46)
[2018-01-10] MEDS: Pramipexole Di-HCl 0.5 MG Tablet PO (21:46)
[2018-01-11] MEDS: Acetaminophen 500 MG Tablet 1000 MG PO ×3 (04:35→21:38)
[2018-01-11] MEDS: Rivaroxaban 10 MG Tablet PO (04:35)
[2018-01-11] MEDS: Metoclopramide 10 MG Tablet PO ×4 (04:35→21:38)
[2018-01-11] MEDS: Iron Polysaccharide Complex 150 MG CAPSULE PO ×2 (08:24→16:48)
[2018-01-11] MEDS: oxyCODONE 5 MG Tablet PO (11:35)
[2018-01-11 16:00] VITALS: BP 122/64; PULSE 70; RESP 20; TEMP 36.6; O2SAT 94
[2018-01-11] MEDS: traZODone 100 MG Tablet PO (21:38)
[2018-01-11] MEDS: Pramipexole Di-HCl 0.5 MG Tablet PO (21:38)
[2018-01-12] MEDS: Acetaminophen 500 MG Tablet 1000 MG PO ×3 (05:03→21:48)
[2018-01-12] MEDS: Senna/Docusate Sodium 1 Tablet 2 TABLET PO ×2 (05:03→16:04)
[2018-01-12] MEDS: Rivaroxaban 10 MG Tablet PO (05:03)
[2018-01-12] MEDS: Polyethylene Glycol 3350 17 GM PACKET PO (05:03)
[2018-01-12] MEDS: Metoclopramide 10 MG Tablet PO ×2 (05:03→11:20)
[2018-01-12] MEDS: Iron Polysaccharide Complex 150 MG CAPSULE PO ×2 (08:37→16:04)
[2018-01-12] MEDS: oxyCODONE 5 MG Tablet PO ×2 (08:40→12:45)
[2018-01-12 12:23] VITALS: PULSE 84; RESP 18
[2018-01-12 15:33] VITALS: BP 116/69; PULSE 78; RESP 16; TEMP 36.6; O2SAT 96
[2018-01-12] MEDS: traZODone 100 MG Tablet PO (21:47)
[2018-01-12] MEDS: Pramipexole Di-HCl 0.5 MG Tablet PO (21:48)
[2018-01-13] MEDS: Acetaminophen 500 MG Tablet 1000 MG PO ×3 (06:44→21:06)
[2018-01-13] MEDS: Senna/Docusate Sodium 1 Tablet 2 TABLET PO ×2 (06:44→17:12)
[2018-01-13] MEDS: Rivaroxaban 10 MG Tablet PO (06:45)
[2018-01-13] MEDS: Polyethylene Glycol 3350 17 GM PACKET PO (06:45)
[2018-01-13] MEDS: Iron Polysaccharide Complex 150 MG CAPSULE PO ×2 (08:41→17:12)
[2018-01-13] MEDS: oxyCODONE 5 MG Tablet PO ×2 (08:43→13:42)
--- NOTE | 2018-01-13 11:38 | MDS.RN ---
Information for the mds was obtained from review of the clinical record, interview of resident, staff, and direct observation of resident's care.
--- NOTE | 2018-01-13 11:48 | CASEMGMT ---
Insurance Clinical information faxed. Pending continued stay approval at this time. Auth#[id number] Korina FREGOSO, RECTANGULAR TANK COOPER
[2018-01-13 15:58] VITALS: BP 122/58; PULSE 67; RESP 14; TEMP 36.9; O2SAT 96
[2018-01-13] MEDS: traZODone 100 MG Tablet PO (21:05)
[2018-01-13] MEDS: Pramipexole Di-HCl 0.5 MG Tablet PO (21:05)
[2018-01-14] MEDS: Senna/Docusate Sodium 1 Tablet 2 TABLET PO ×2 (06:01→16:03)
[2018-01-14] MEDS: Rivaroxaban 10 MG Tablet PO (06:02)
[2018-01-14] MEDS: Polyethylene Glycol 3350 17 GM PACKET PO (06:02)
[2018-01-14] MEDS: Acetaminophen 500 MG Tablet 1000 MG PO ×3 (06:02→21:03)
--- NOTE | 2018-01-14 06:40 | NURSING ---
Eleven flakita removed from proximal incision and eight flakita removed from distal incision this AM. Steri strips applied. Pt tolerated well.
[2018-01-14] MEDS: Iron Polysaccharide Complex 150 MG CAPSULE PO ×2 (08:36→16:03)
[2018-01-14] MEDS: proMETHazine 25 MG Tablet PO (12:26)
[2018-01-14] MEDS: oxyCODONE 5 MG Tablet PO (12:27)
--- NOTE | 2018-01-14 12:29 | NURSING ---
Addendum entered by Katty Geiger 01/14/18 15:50: R' STATES NAUSEA RESOLVED THIS AFTERNOON. ENSURE WAS D/C'D. WILL MONITOR. Original Note: R' C/O NAUSEA AND NOT WANTING TO EAT LUNCH. STATES THE ENSURE HAS BEEN MAKING NAUSEATED AND WOULD LIKE IT D/C'D. PHENERGAN GIVEN AT THIS TIME AND SOUP PER REQUEST.
--- NOTE | 2018-01-14 14:44 | NURSING ---
Spoke with nurse at Dr. Currie's office, will call back unit when she speaks to Dr. Currie to see when she plans to come and see patient.
[2018-01-14 15:32] VITALS: BP 99/59; PULSE 66; RESP 16; TEMP 36.6; O2SAT 94
--- NOTE | 2018-01-14 16:18 | CASEMGMT ---
Insurance Continued stay denied with last cover day being 01/18/18 and resident to discharge or financial liability to begin on 01/19/18. Auth#[id number] Korina FREGOSO, CONE EXAMINER
--- NOTE | 2018-01-14 16:22 | CASEMGMT ---
Social Work Spoke with resident and resident family. This social services assistant communicating that continued stay has been denied with a last cover day of 01/18/18 and resident to discharge or financial liability to begin on 01/19/18. Resident and resident family are not agreeable to discharge date and plan to appeal. Resident family currently unsure of what discharge plan will be if resident does not win appeal as resident has several stairs to get into the home and resident has not be able to complete stairs at this time. Support given. Proposed discharge date: 01/18/18 pending appeal. Will continue to follow for further discharge planning and support as needed. PLAN: Unsure at this time, pending appeal. Korina FREGOSO, PAYMENT POSTER
--- NOTE | 2018-01-14 17:38 | CASEMGMT ---
Social Work Spoke with resident and resident brother in room. Resident reporting to be working on a plan for 01/19/18 if appeal is lost. Resident planning to return home with home health services for physical and occupational therapy and to have family check in with resident and possibly stay with resident. Support given. Proposed discharge date: 01/19/18 pending appeal Home Health progress note initiated. PLAN: Discharge home with home health services vs. continue with stay on TCU. Korina FREGOSO, ITINERANT TEACHER ASSISTANT
[2018-01-14] MEDS: traZODone 100 MG Tablet PO (21:04)
[2018-01-14] MEDS: Pramipexole Di-HCl 0.5 MG Tablet PO (21:04)
[2018-01-15] MEDS: Acetaminophen 500 MG Tablet 1000 MG PO ×3 (06:35→21:19)
[2018-01-15] MEDS: Senna/Docusate Sodium 1 Tablet 2 TABLET PO ×2 (06:36→16:48)
[2018-01-15] MEDS: Rivaroxaban 10 MG Tablet PO (06:36)
[2018-01-15] MEDS: Polyethylene Glycol 3350 17 GM PACKET PO (06:37)
[2018-01-15] MEDS: Iron Polysaccharide Complex 150 MG CAPSULE PO ×2 (09:59→16:49)
[2018-01-15] MEDS: oxyCODONE 5 MG Tablet PO ×2 (10:03→14:07)
--- NOTE | 2018-01-15 10:19 | CASEMGMT ---
Insurance Received DENC from insurance and delivered it to pt and explained document. Awaiting appeal decision from 0. Pt is understanding. Auth # [id number] ZENOBIA Fragoso
--- NOTE | 2018-01-15 10:21 | CASEMGMT ---
Social Work Pt expressing concerns that she does not have a PCP. Pt states that Dr. Willie Palm from [facility] in [place] was her physician and that practice shut down. SW informed pt that Dr. Palm has moved to a practice in [place]. Phone call placed to Dr. Palm's office and they confirm they will accept pt and will request her records be transferred from [facility] when she makes appt. TEGAN infomed pt of this and provided written information of address and phone number of new practice. Pt appreciative. ZENOBIA Fragoso
--- NOTE | 2018-01-15 11:38 | PCM.PN.ORT ---
Patient Problems: Active and Suspected Problems (Last Reviewed 12/29/17 @ 16:37 by Gerson Wick DO) Fall (Acute) Subjective: Patient seen and examined at bedside. c/o achiness in leg but up with PT and doing well otherwise. no cp/sob/f/c/diarrhea or other constitutional sympots. patient states they are getting ready for her to be d/tamara. - Physical Exam General: Alert, Oriented x3, Cooperative HEENT: Atraumatic, PERRLA, EOMI, Normocephalic Neck: Supple, No JVD, Negative Carotid Bruits Lungs: Clear to auscultation, Normal air movement Cardiovascular: Regular rate, No murmurs Abdomen: Bowel Sounds Present, Soft, Non Tender Extremities: No edema, Capillary Refill Less than 3 Seconds Skin: No rashes, No breakdown Musculoskeletal: No Tenderness to Palpation of Joints or Extremities Neurological: Cranial nerves II-XII grossly intact Psych/Mental Status: Normal Affect, Appropriate Vital Signs Temp Pulse Resp BP Pulse Ox 97.8 F 66 16 99/59 L 94 01/14/18 15:32 01/14/18 15:32 01/14/18 15:32 01/14/18 15:32 01/14/18 15:32 Oxygen Delivery Method Room Air Weight: 128 lb 4 oz Body Mass Index (BMI) 24.0 Intake and Output for Last 24 Hours 01/13/18 01/14/18 01/15/18 23:59 23:59 23:59 Intake Total 420 / 420 780 / 780 240 / 240 Balance 420 / 420 780 / 780 240 / 240 Medical Necessity - Tobacco Use Smoking Status: Former smoker Tobacco Use: Non-smoker Assessment/Plan All Active Problems (Last Reviewed 12/29/17 @ 16:37 by Gerson Wick DO) Fracture of hip, left, closed (Acute) Fall (Acute) 2 wks s/p orif left hip wbat xrays today pending follow up in my clinic in 4 weeks call with concerns
--- NOTE | 2018-01-15 11:56 | RAD_ITS ---
STUDY: X-RAY - PELVIS AND LEFT HIP REASON FOR EXAM: Severe pain since surgery, femoral rodding 12/30/2017, no injury since surgery. TECHNIQUE: Radiological exam, hip, unilateral, with pelvis when performed; 2 or 3 views. COMPARISON: Radiographs 12/30/2017. FINDINGS: There is mild vascular calcification. Normal bilateral iliac wings, sacroiliac joints and visualized sacrum. Normal bilateral superior and inferior pubic rami. Normal pubic symphysis. Normal bilateral ischial tuberosities. There is a hip nail with an intramedullary jorge a transfixing a left intertrochanteric hip fracture with a greater degree of retraction of the lesser trochanteric fragment and mild medial displacement of a small greater trochanteric fragment adjacent to the proximal intramedullary jorge a. RAD/HIP, UNI W/ Pelvis 2-3 Views IMPRESSION: Greater degree of retraction of the lesser trochanteric fragment and mild medial displacement of a small greater trochanteric fragment at the medial aspect of the proximal intramedullary jorge a since the prior study. Electronically Signed: Bogdan Dsohi MD at 15:43 EDT Tel , Service support ,
--- NOTE | 2018-01-15 13:28 | DCINST_ITS ---
- Discharge Diagnoses Current Active Problems: Current Active and Chronic Problems (Last Reviewed 12/29/17 @ 16:37 by Gerson Wick DO) Fall (Acute) Osteoporosis (Chronic) GERD (gastroesophageal reflux disease) (Chronic) Anemia (Chronic) Low back pain (Chronic) You will use the following diet at home:: No restrictions, Regular Your food should be the consistency of: Regular Your liquids should be the consistency of: Regular/Thin Discharge Activity: Return to Normal Activity, May Shower, Use Walker Weight Bearing Status: Weight bearing as tolerated Call your doctor if you observe: Fever of 101 or Higher, Inability to urinate, Inability to have a bowel movement, Shortness of breath, Chest pain, Uncontrolled pain Allergies/Adverse Reactions: Allergies No Known Allergies Allergy (Unverified 07/30/17 10:43) Medications to take at Discharge Acetaminophen [Tylenol] 1,000 mg PO Q8 tablet 01/15/18 Bisacodyl [Dulcolax] 10 mg PO DAILY PRN #30 tab 01/15/18 Cholecalciferol (Vitamin D3) [Vitamin D3] 5,000 unit PO DAILY #30 cap 01/15/18 Iron Polysaccharide Complex [Ferrex 150] 150 mg PO BIDCM #60 cap 01/15/18 Oxycodone [Oxyir] 5 mg PO Q4H PRN PRN #28 tab 01/15/18 Polyethylene Glycol 3350 [Miralax] 17 gm PO DAILY #30 packet 01/15/18 Potassium Chloride [K-Dur] 10 meq PO DAILYCM #30 tab 01/15/18 Pramipexole Di-HCl [Mirapex] 0.5 mg PO QPM #30 tab 01/15/18 Rivaroxaban [Xarelto] 10 mg PO DAILY@0600 #15 tab 01/15/18 Senna/Docusate Sodium [Senokot-S] 2 tab PO BID #120 tab 01/15/18 proMETHazine tablet [Phenergan tablet] 25 mg PO Q6H PRN PRN #30 tab 01/15/18 traZODone [Desyrel] 100 mg PO QHS #30 tab 01/15/18 The following prescriptions were given: Oxycodone [Oxyir] 5 mg PO Q4H PRN PRN #28 tab PRN Reason: Moderate Pain (4-5/10) proMETHazine tablet [Phenergan tablet] 25 mg PO Q6H PRN PRN #30 tab PRN Reason: Nausea/Vomiting Bisacodyl [Dulcolax] 10 mg PO DAILY PRN #30 tab PRN Reason: Constipation Cholecalciferol (Vitamin D3) [Vitamin D3] 5,000 unit PO DAILY #30 cap Polyethylene Glycol 3350 [Miralax] 17 gm PO DAILY #30 packet Potassium Chloride [K-Dur] 10 meq PO DAILYCM #30 tab Pramipexole Di-HCl [Mirapex] 0.5 mg PO QPM #30 tab Rivaroxaban [Xarelto] 10 mg PO DAILY@0600 #15 tab traZODone [Desyrel] 100 mg PO QHS #30 tab Iron Polysaccharide Complex [Ferrex 150] 150 mg PO BIDCM #60 cap Senna/Docusate Sodium [Senokot-S] 2 tab PO BID #120 tab Primary Care Physician: Lalo Palm DO [STAFF PHYSICIAN] - Please follow up with your Primary Care Physician in: 1 week. Test Results: Test results from this visit will be discussed in further detail at your follow- up appointment, if applicable. Please Follow Up With: Dr Pugh When: 2 weeks. Proposed Discharge Date: 01/19/18
--- NOTE | 2018-01-15 13:28 | PCM.DC.SUM ---
Discharge Date and Diagnosis - Problem List Patient Problems: Active and Suspected Problems (Last Reviewed 12/29/17 @ 16:37 by Gerson Wick DO) Fall (Acute) Date of Admission: 01/02/18 Date of Discharge: 01/19/18 - Primary Discharge Diagnosis Active and Suspected Problems (Last Reviewed 12/29/17 @ 16:37 by Gerson Wick DO) Fall (Acute) - Secondary Discharge Diagnosis Chronic Problems (Last Reviewed 12/29/17 @ 16:37 by Gerson Wick DO) Osteoporosis (Chronic) GERD (gastroesophageal reflux disease) (Chronic) Anemia (Chronic) Low back pain (Chronic) Hospital Course and Treatment Imaging Results: 01/15/18 11:56 Xray Hip [Hip Min 2 Views (Portable)] [RAD] Urgent Operations: - - status post cephalomedullary nailing Procedures: None Summary of Care Provided: The patient is a 77 year old Female with below past medical history hospitalized for left hip fracture, underwent left hip cephalomedullary nailing 12/30/[address] Currie, admitted to TCU with debility, here for rehabilitation, strengthening, prior to discharge home. Resident had issues with insomnia, restless legs syndrome, hypokalemia, she is being discharged on medications for these issues which are most likely self limited. Recommend discontinuation of medications as outpatient. Discharge home alone, with Home Health Services. Discharge Diet: No Restrictions Discharge Activity: Return to Normal Activity, May Shower, Use Walker Weight Bearing Status: Weight bearing as tolerated Call your doctor if you observe: Fever of 101 or Higher, Inability to urinate, Inability to have a bowel movement, Shortness of breath, Chest pain, Uncontrolled pain Home Medications: Medications to take at Discharge Acetaminophen [Tylenol] 1,000 mg PO Q8 tablet 01/15/18 Bisacodyl [Dulcolax] 10 mg PO DAILY PRN #30 tab 01/15/18 Cholecalciferol (Vitamin D3) [Vitamin D3] 5,000 unit PO DAILY #30 cap 01/15/18 Iron Polysaccharide Complex [Ferrex 150] 150 mg PO BIDCM #60 cap 01/15/18 Oxycodone [Oxyir] 5 mg PO Q4H PRN PRN #28 tab 01/15/18 Polyethylene Glycol 3350 [Miralax] 17 gm PO DAILY #30 packet 01/15/18 Potassium Chloride [K-Dur] 10 meq PO DAILYCM #30 tab 01/15/18 Pramipexole Di-HCl [Mirapex] 0.5 mg PO QPM #30 tab 01/15/18 Rivaroxaban [Xarelto] 10 mg PO DAILY@0600 #15 tab 01/15/18 Senna/Docusate Sodium [Senokot-S] 2 tab PO BID #120 tab 01/15/18 proMETHazine tablet [Phenergan tablet] 25 mg PO Q6H PRN PRN #30 tab 01/15/18 traZODone [Desyrel] 100 mg PO QHS #30 tab 01/15/18 Following Prescrptions Were Given to Patient: Oxycodone [Oxyir] 5 mg PO Q4H PRN PRN #28 tab PRN Reason: Moderate Pain (4-5/10) proMETHazine tablet [Phenergan tablet] 25 mg PO Q6H PRN PRN #30 tab PRN Reason: Nausea/Vomiting Bisacodyl [Dulcolax] 10 mg PO DAILY PRN #30 tab PRN Reason: Constipation Cholecalciferol (Vitamin D3) [Vitamin D3] 5,000 unit PO DAILY #30 cap Polyethylene Glycol 3350 [Miralax] 17 gm PO DAILY #30 packet Potassium Chloride [K-Dur] 10 meq PO DAILYCM #30 tab Pramipexole Di-HCl [Mirapex] 0.5 mg PO QPM #30 tab Rivaroxaban [Xarelto] 10 mg PO DAILY@0600 #15 tab traZODone [Desyrel] 100 mg PO QHS #30 tab Iron Polysaccharide Complex [Ferrex 150] 150 mg PO BIDCM #60 cap Senna/Docusate Sodium [Senokot-S] 2 tab PO BID #120 tab Primary Care Physician: Lalo Palm DO [STAFF PHYSICIAN] - Please follow up with your Primary Care Physician in: 1 week. Please Follow Up With: Dr Pugh When: 2 weeks. Disposition: Home with Home Health Minutes spent on discharge:: 35 Patient Condition:: Good Medical Necessity - Tobacco Use Smoking Status: Former smoker Tobacco Use: Non-smoker Meaningful Use Info Meaningful Use Diagnoses (Choose all that apply): None applicable
--- NOTE | 2018-01-15 13:31 | HHNOTE_ITS ---
Home Health Note - Plan Overview of reason of hospitalization: The patient is a 77 year old Female with below past medical history hospitalized for left hip fracture, underwent left hip cephalomedullary nailing 12/30/[address] Currie, admitted to TCU with debility, here for rehabilitation, strengthening, prior to discharge home. Resident had issues with insomnia, restless legs syndrome, hypokalemia, she is being discharged on medications for these issues which are most likely self limited. Recommend discontinuation of medications as outpatient. Discharge home alone, with Home Health Services. Problems: Patient was seen for (Last Reviewed 12/29/17 @ 16:37 by Gerson Wick DO) Fall (Acute) Osteoporosis (Chronic) GERD (gastroesophageal reflux disease) (Chronic) Anemia (Chronic) Low back pain (Chronic) Complete List of Medical Problems (Last Reviewed 12/29/17 @ 16:37 by Gerson Wick DO) Fracture of hip, left, closed (Acute) Fall (Acute) Osteoporosis (Chronic) GERD (gastroesophageal reflux disease) (Chronic) Anemia (Chronic) Low back pain (Chronic) - Requirements and Reasons Disciplines Needed/Ordered: Physical Therapy Reason for Disciplines: Gait Training, Stair Training, Fall Prevention, Home Safety/Equipment Instruction, Balance and/or Posture Training, Transfer Training Related To: Limited/Poor Endurance, Shortness of Breath with Activity, Physical Impairments, Unsteady Gait/Balance, Fall Risk Patient is unable to leave the home: Without Aid of Supportive Devices (crutches , cane, wheelchair, walker), Without the assistance of another person - Additional Disciplines Additional Disciplines Needed/Ordered: Occupational Therapy
--- NOTE | 2018-01-15 13:34 | MDS.RN ---
Pain interview for shane 01/16/18 completed.
--- NOTE | 2018-01-15 15:02 | CASEMGMT ---
BIMS and PHQ9 interviews completed on this date for MDS assessment. ZENOBIA Fragoso
[2018-01-15 16:00] VITALS: BP 117/63; PULSE 70; RESP 20; TEMP 37.1; O2SAT 98
--- NOTE | 2018-01-15 16:24 | CASEMGMT ---
Social Work Met with pt in room and informed that [employer] has not called with determination at this time for appeal and that she will likely hear from them this weekend. SW will follow up on Thursday for d/c planning if pt is denied continued stay. List of Home Health agencies provided to pt upon her request. ZENOBIA Fragoso
--- NOTE | 2018-01-15 16:30 | NURSING ---
xray lt hip results called to dr. cisse and per alignment looks good and hip is stable. no new orders or recommendations at this time.
[2018-01-15] MEDS: Pramipexole Di-HCl 0.5 MG Tablet PO (21:19)
[2018-01-15] MEDS: traZODone 100 MG Tablet PO (21:19)
[2018-01-16] MEDS: Rivaroxaban 10 MG Tablet PO (05:15)
[2018-01-16] MEDS: Polyethylene Glycol 3350 17 GM PACKET PO (05:15)
[2018-01-16] MEDS: Acetaminophen 500 MG Tablet 1000 MG PO ×3 (05:15→21:24)
[2018-01-16] MEDS: Senna/Docusate Sodium 1 Tablet 2 TABLET PO ×2 (05:15→16:37)
[2018-01-16] MEDS: Bisacodyl 5 MG Tablet 10 MG PO (08:01)
[2018-01-16] MEDS: Iron Polysaccharide Complex 150 MG CAPSULE PO ×2 (09:44→16:38)
[2018-01-16] MEDS: oxyCODONE 5 MG Tablet PO ×2 (09:44→21:26)
--- NOTE | 2018-01-16 13:59 | CASEMGMT ---
Social Work Telephone call from [employer] Rodríguez. Charity communicating to this licensed social worker that resident won appeal. Spoke with resident and resident family in room. Resident family already aware of outcome. Resident voicing understanding and planning to continue with further care and treatment on the Transitional Care Unit. This licensed social worker left voicemail for insurance to establish when the next update will be due. Auth#[id number] Korina FREGOSO, MATERIALS BRANCH CHIEF
[2018-01-16 16:00] VITALS: BP 123/56; PULSE 67; RESP 20; TEMP 36.2; O2SAT 96
--- NOTE | 2018-01-16 16:17 | NURSING ---
THIS NURSE ENTERED ROOM TO ADMINISTER SOAP SUDS ENEMA, BUT PT REPORTED SHE HAD BM. SPOKE WITH JENNIFER, TISHA AND SHE DID REPORT XLG LOOSE STOOL AFTER HAVING PRN PO DULCOLAX. PT DENIES NAUSEA, FEELING MUCH BETTER.
[2018-01-16] MEDS: Pramipexole Di-HCl 0.5 MG Tablet PO (21:27)
[2018-01-16] MEDS: traZODone 100 MG Tablet PO (21:27)
[2018-01-17] MEDS: Rivaroxaban 10 MG Tablet PO (05:19)
[2018-01-17] MEDS: Senna/Docusate Sodium 1 Tablet 2 TABLET PO ×2 (05:19→17:26)
[2018-01-17] MEDS: Polyethylene Glycol 3350 17 GM PACKET PO (05:19)
[2018-01-17] MEDS: Acetaminophen 500 MG Tablet 1000 MG PO ×3 (05:20→20:57)
[2018-01-17 06:17] LABS: Absolute Lymphocyte Count 1.71 X10^3/ul (0.83-4.51); Absolute Neutrophil Count 1.4 X10^3/uL (2.0-7.7); Basophil# 0.04 X10^3/uL; Eosinophil# 0.13 X10^3/uL; Eosinophils% 3.3 % (0-5); Hematocrit 33.2 % (37-47); Hemoglobin 10.5 g/dl (12.0-15.0); Lymphocyte # 1.71 X10^3/ul (4.0); Lymphocyte % 43.8 % (19-41); Mean Corp Hgb Conc 31.6 g/gl (32-36); Mean Corpuscular Hgb 30.8 pg (27.0-32.0); Mean Corpuscular Volume 97.4 fL (81-99); Mean Platelet Vol. 7.9 fl (6.2-12.0); Monocyte# 0.61 X10^3/uL; Monocyte% 15.6 % (0-10); Platelet Count 542 K/mm3 (150-450); RBC Distribution Width CV 14.5 % (11.6-14.6); RBC Distribution Width SD 48.6 fl (35.1-43.9); Red Blood Count 3.41 M/mm3 (4.2-5.4); White Blood Count 3.9 K/mm3 (4.4-11.0)
[2018-01-17 06:23] LABS: POSITIVE COUNT NO; POSITIVE DIFFERENTIAL NO; POSITIVE MORPHOLOGY NO
[2018-01-17 06:35] LABS: Anion Gap 5 (5-15); BUN 10 mg/dL (7-18); BUN/Creat Ratio 16.7 RATIO (10-20); Calcium,Total 8.9 mg/dL (8.5-10.1); Chloride 104 mmol/L (98-107); EST Glomerular Filtration Rate 103 mL/min (>60); Est Glom Filt Rate - Afr Amer 125 mL/min (>60); Estimated Creatinine Clearance 40.68 ml/min; Glucose 87 mg/dL (74-106); Potassium 3.5 mmol/L (3.5-5.1); Sodium Level 138 mmol/L (136-145)
[2018-01-17] MEDS: Iron Polysaccharide Complex 150 MG CAPSULE PO ×2 (08:33→17:26)
[2018-01-17 10:00] VITALS: PULSE 78; RESP 14; O2SAT 97
[2018-01-17 16:00] VITALS: BP 118/65; PULSE 73; RESP 20; TEMP 37; O2SAT 98
[2018-01-17] MEDS: traZODone 100 MG Tablet PO (20:39)
[2018-01-17] MEDS: Pramipexole Di-HCl 0.5 MG Tablet PO (20:39)
[2018-01-18] MEDS: oxyCODONE 5 MG Tablet PO ×2 (03:02→14:06)
[2018-01-18] MEDS: Acetaminophen 500 MG Tablet 1000 MG PO ×3 (04:56→20:59)
[2018-01-18] MEDS: Rivaroxaban 10 MG Tablet PO (04:56)
[2018-01-18] MEDS: Senna/Docusate Sodium 1 Tablet 2 TABLET PO ×2 (04:56→17:46)
[2018-01-18] MEDS: Polyethylene Glycol 3350 17 GM PACKET PO (04:57)
[2018-01-18 06:11] VITALS: PULSE 82
[2018-01-18] MEDS: Iron Polysaccharide Complex 150 MG CAPSULE PO ×2 (08:49→17:46)
--- NOTE | 2018-01-18 11:21 | CASEMGMT ---
Insurance Clinical information faxed. Pending continued stay approval at this time. Auth#[id number] Korina FREGOSO, TILE GRINDER
[2018-01-18 15:42] VITALS: BP 116/65; PULSE 66; RESP 16; TEMP 36.4; O2SAT 97
[2018-01-18] MEDS: traZODone 100 MG Tablet PO (20:59)
[2018-01-18] MEDS: Pramipexole Di-HCl 0.5 MG Tablet PO (20:59)
[2018-01-19] MEDS: Rivaroxaban 10 MG Tablet PO (05:23)
[2018-01-19] MEDS: Acetaminophen 500 MG Tablet 1000 MG PO ×3 (05:23→21:24)
[2018-01-19] MEDS: Polyethylene Glycol 3350 17 GM PACKET PO (05:23)
[2018-01-19] MEDS: Senna/Docusate Sodium 1 Tablet 2 TABLET PO ×2 (05:23→17:08)
[2018-01-19] MEDS: Iron Polysaccharide Complex 150 MG CAPSULE PO ×2 (07:56→17:08)
[2018-01-19] MEDS: oxyCODONE 5 MG Tablet PO (11:32)
[2018-01-19 16:00] VITALS: BP 112/59; PULSE 55; RESP 18; TEMP 36.8; O2SAT 97
[2018-01-19] MEDS: traZODone 100 MG Tablet PO (21:24)
[2018-01-19] MEDS: Pramipexole Di-HCl 0.5 MG Tablet PO (21:24)
[2018-01-20] MEDS: Senna/Docusate Sodium 1 Tablet 2 TABLET PO ×2 (05:04→16:13)
[2018-01-20] MEDS: Acetaminophen 500 MG Tablet 1000 MG PO ×3 (05:04→21:07)
[2018-01-20] MEDS: Rivaroxaban 10 MG Tablet PO (05:04)
[2018-01-20] MEDS: Polyethylene Glycol 3350 17 GM PACKET PO (05:04)
[2018-01-20] MEDS: Iron Polysaccharide Complex 150 MG CAPSULE PO ×2 (08:00→16:13)
[2018-01-20] MEDS: oxyCODONE 5 MG Tablet PO (12:12)
--- NOTE | 2018-01-20 13:18 | CASEMGMT ---
Insurance Continued stay denied at this time. Last cover day being 01/22/18 and resident to discharge or financial responsibility to begin on 01/23/18. Auth#[id number] Korina FREGOSO, OBSERVER ELECTRICAL PROSPECTING
--- NOTE | 2018-01-20 13:18 | CASEMGMT ---
Social Work Spoke with resident and resident family. This psychiatric social worker communicating that continued stay has been denied by insurance and last cover day is 01/22/18 with resident to discharge or financial responsibility to begin on 01/23/18. Resident and resident son voicing understanding and not agreeable to insurance decision. Resident son planning to initiate appeal at this time. Resident plan would be to discharge to home alone where resident has many steps within the home and outside of the home. Therapy is currently recommending for resident to continue with services at resident is not able to safely manage stairs on own. Support given. Proposed discharge date: 01/23/18 pending appeal. PLAN: Discharge to home alone vs. continued with stay pending appeal results. Korina FREGOSO, HEARING CARE PROFESSIONAL
[2018-01-20 16:00] VITALS: BP 108/55; PULSE 74; RESP 20; TEMP 36.9; O2SAT 97
--- NOTE | 2018-01-20 18:30 | NURSING ---
pt c/o grinding noise in lt knee, but denies pain. no edema. Dr Pang notified, new order for xray lt knee. pt updated
--- NOTE | 2018-01-20 18:35 | RAD_ITS ---
STUDY: X-RAY - LEFT KNEE REASON FOR EXAM: Female, 78 years old. Arthritis. TECHNIQUE: 2 view(s) of the knee. COMPARISON: None. FINDINGS: There is an intramedullary jorge a within the visualized mid/distal femur. Normal visualized proximal tibia and fibula. Normal proximal tibiofibular articulation. There is mild degenerative arthrosis of the medial femorotibial compartment. Normal lateral femorotibial compartment. There is mild degenerative arthrosis of the patellofemoral articulation. There are atherosclerotic calcifications. RAD/Knee 1 or 2 Views IMPRESSION: Mild degenerative changes. Atherosclerosis. Electronically Signed: Adele Dao MD at 19:07 EDT Tel , Service support ,
[2018-01-20] MEDS: Pramipexole Di-HCl 0.5 MG Tablet PO (21:06)
[2018-01-20] MEDS: traZODone 100 MG Tablet PO (21:07)
[2018-01-21] MEDS: Polyethylene Glycol 3350 17 GM PACKET PO (05:23)
[2018-01-21] MEDS: Rivaroxaban 10 MG Tablet PO (05:23)
[2018-01-21] MEDS: Senna/Docusate Sodium 1 Tablet 2 TABLET PO ×2 (05:23→16:51)
[2018-01-21] MEDS: Acetaminophen 500 MG Tablet 1000 MG PO ×3 (07:48→20:55)
[2018-01-21] MEDS: Iron Polysaccharide Complex 150 MG CAPSULE PO ×2 (07:49→16:51)
[2018-01-21] MEDS: oxyCODONE 5 MG Tablet PO ×2 (07:55→12:00)
[2018-01-21 15:29] VITALS: BP 111/72; PULSE 70; RESP 20; TEMP 36.4; O2SAT 95
--- NOTE | 2018-01-21 16:32 | CASEMGMT ---
Social Work Telephone call from [employer]. Resident lost appeal. Last cover day continues to be: 01/22/18 with resident to discharge or financial responsibility to begin on 01/23/18. Spoke with resident in room. Resident voicing to be planning to discharge home with home health services and is requesting for home health services to be set up through [facility] ([facility]). Physical and Occupational therapy are recommending for resident to continue with services within the home, resident is agreeable to this. Resident reporting to have all needed durable medical equipment already set up within the home. Resident family to provide transportation home for resident at time of discharge. Telephone call to resident son, Jeb. Jeb agreeable to above plan but also voicing that resident was possibly thinking about assisted living [facility] and that resident and resident family were planning to discuss this further this evening. This match up worker voiced understanding and communicated that resident was stating to plan to discharge home. Jeb voicing understanding and planning to speak further with resident this evening. Will hold to set up any services until touching base with resident in the morning on final decision after speaking with family. Support given. Proposed discharge date: 01/23/18 PLAN: Discharge to home with home health services vs. assisted living. Korina FREGOSO, QUENCHING CAR OPERATOR
[2018-01-21] MEDS: Pramipexole Di-HCl 0.5 MG Tablet PO (20:55)
[2018-01-21] MEDS: traZODone 100 MG Tablet PO (20:55)
[2018-01-22] MEDS: Polyethylene Glycol 3350 17 GM PACKET PO (04:49)
[2018-01-22] MEDS: Acetaminophen 500 MG Tablet 1000 MG PO ×3 (04:49→21:42)
[2018-01-22] MEDS: Senna/Docusate Sodium 1 Tablet 2 TABLET PO ×2 (04:49→17:24)
[2018-01-22] MEDS: Rivaroxaban 10 MG Tablet PO (04:50)
[2018-01-22] MEDS: Iron Polysaccharide Complex 150 MG CAPSULE PO ×2 (08:38→17:25)
[2018-01-22] MEDS: Bisacodyl 5 MG Tablet 10 MG PO (08:44)
[2018-01-22] MEDS: oxyCODONE 5 MG Tablet PO ×2 (09:08→13:20)
[2018-01-22 10:00] VITALS: RESP 16
--- NOTE | 2018-01-22 11:05 | CASEMGMT ---
Social Work Spoke with resident in room. Resident is confirming to be planning to discharge to home alone with home health services and family for support. Resident confirming to have a walker and to have no further needs a this time. Resident family to provide transportation home for resident at time of discharge. Support given. [facility] This social worker health services making referral for physical and occupational therapy. Order completed. Proposed discharge date: 01/23/18 PLAN: Discharge to home alone and home health services. Korina FREGOSO, GROUND WATER CONTRACTOR
[2018-01-22 15:06] VITALS: BP 122/60; PULSE 63; RESP 16; TEMP 36.4; O2SAT 94
[2018-01-22] MEDS: traZODone 100 MG Tablet PO (21:42)
[2018-01-22] MEDS: Pramipexole Di-HCl 0.5 MG Tablet PO (21:42)
[2018-01-23] MEDS: Rivaroxaban 10 MG Tablet PO (05:18)
[2018-01-23] MEDS: Polyethylene Glycol 3350 17 GM PACKET PO (05:18)
[2018-01-23] MEDS: Senna/Docusate Sodium 1 Tablet 2 TABLET PO ×2 (05:19→16:46)
[2018-01-23] MEDS: Acetaminophen 500 MG Tablet 1000 MG PO ×2 (05:19→13:24)
[2018-01-23] MEDS: Iron Polysaccharide Complex 150 MG CAPSULE PO ×2 (08:52→16:46)
[2018-01-23 14:35] VITALS: BP 121/58; PULSE 73; RESP 18; TEMP 37.1; O2SAT 94
[2018-01-23 17:07] VITALS: BP 121/58; PULSE 73; RESP 18; TEMP 37.1; O2SAT 94
--- NOTE | 2018-01-25 16:18 | CASEMGMT ---
Insurance Notified insurance of resident discharge on 01/23/18 to home alone with home health services. Auth#[id number] Korina FREGOSO, ANCILLARY SERVICES MANAGER
--- NOTE | 2018-01-27 12:02 | MDS.RN ---
Information for the mds was obtained from review of the clinical record, interview of resident, staff, and direct observation of resident's care.
== END 2018-01-23 17:09 | disposition home health service (06) | DRG 561 ==
PROVIDERS: Admitting Provider Family Medicine Geriatric Medicine; Visit Provider Family Medicine Geriatric Medicine
DX: S72.002D Fracture of unspecified part of neck of left femur, subsequent encounter for closed fracture with routine healing (principal); W19.XXXD Unspecified fall, subsequent encounter; K21.9 Gastro-esophageal reflux disease without esophagitis; D50.9 Iron deficiency anemia, unspecified; Z87.891 Personal history of nicotine dependence; G25.81 Restless legs syndrome; E55.9 Vitamin D deficiency, unspecified; Z23 Encounter for immunization; G47.00 Insomnia, unspecified; E87.6 Hypokalemia
CPT/HCPCS: 36415; 73502; 73560; 74018; 80048; 85025; 97110; 97116; 97161; 97166; 97530; 97535; 97802; J7030; 90670; A4216

== ENCOUNTER → 2018-02-09 13:37 | Outpatient (CLI) | payer MEDICARE, SELFPAY | PROVIDERS: Family Provider Family Medicine; PCP Family Medicine; Visit Provider Orthopaedic Surgery | DX: S72.002A Fracture of unspecified part of neck of left femur, initial encounter for closed fracture (principal) | CPT/HCPCS: 73502 ==

== ENCOUNTER → 2018-02-25 12:23 | Outpatient (CLI) | payer MEDICARE, SELFPAY ==
--- NOTE | 2018-02-25 13:01 | BD_ITS ---
STUDY: DUAL ENERGY X-RAY ABSORPTIOMETRY / DXA REASON FOR EXAM: Female, 78 years old. The patient is postmenopausal. Loss of height. TECHNIQUE: Bone Mineral Density (BMD) measurements of lumbar spine and right hip were obtained. COMPARISON: Comparison is made with prior study dated December 18, 2015. FINDINGS: Lumbar Spine (L1-L4): g/cm2 (0.651) / T-score (-4.3) / Z-score (-2.5) Findings are suggestive of osteoporosis with a high fracture risk. Right Femur Total: g/cm2 (0.660) / T-score (-2.8) / Z-score (-0.9) Right Femoral Neck: g/cm2 (0.707) / T-score (-2.4) / Z-score (-0.4) The T-Scores on the most recent prior examination were: Lumbar Spine (L1-L4): There has been worsening of bone density since the previous examination. Right Femur Total: which represents a worsening of 9.6%. BD/Dexa Bone Density Study IMPRESSION: The patient is considered osteoporotic as outlined below according to World [place] Organization (WHO) criteria with a high fracture risk. There has been worsening of bone density since the previous examination. Reference Information: The T-score is the number of standard deviations above or below the standard which is normal for young adults at their peak bone mineral density. The World Health Organization (WHO) interprets the T-scores as follows: Above -1 Normal bone density Between -1 and -2.5 Osteopenia Equal to / or below -2.5 Osteoporosis As a practical clinical guideline, osteopenia may be graded as follows: Mild -1 through -1.5 Moderate -1.6 through -2.0 Severe -2.1 through -2.4 The Z-score is the number of standard deviations above or below age-matched controls. A Z-score of less than -1.5 would be considered abnormal. References: 1. NIH Osteoporosis and Related Bone Diseases http://www.osteo.org 2. International Society for Clinical Densitometry http://www.iscd.org 3. National Osteoporosis Foundation http://www.nof.org Electronically Signed: Luke Kumar MD at 15:56 EDT Tel [phone], Service support ,
[2018-02-25 13:49] LABS: Hematocrit 39.7 % (37-47); Hemoglobin 12.2 g/dl (12.0-15.0); Mean Corp Hgb Conc 30.7 g/gl (32-36); Mean Corpuscular Hgb 29.7 pg (27.0-32.0); Mean Corpuscular Volume 96.6 fL (81-99); Mean Platelet Vol. 9.2 fl (6.2-12.0); Platelet Count 313 K/mm3 (150-450); RBC Distribution Width CV 13.3 % (11.6-14.6); RBC Distribution Width SD 46.8 fl (35.1-43.9); Red Blood Count 4.11 M/mm3 (4.2-5.4); White Blood Count 6.1 K/mm3 (4.4-11.0)
[2018-02-25 13:53] LABS: Scan Indicated on CBC? Y/N NO
[2018-02-25 14:15] LABS: Anion Gap 9 (5-15); BUN 7 mg/dL (7-18); BUN/Creat Ratio 9.6 RATIO (10-20); Calcium,Total 9.2 mg/dL (8.5-10.1); Chloride 105 mmol/L (98-107); Creatinine, Serum 0.73 mg/dL (0.55-1.02); EST Glomerular Filtration Rate 82 mL/min (>60); Est Glom Filt Rate - Afr Amer 100 mL/min (>60); Glucose 99 mg/dL (74-106); Potassium 3.5 mmol/L (3.5-5.1); Sodium Level 144 mmol/L (136-145)
== END ==
PROVIDERS: Family Provider Family Medicine; PCP Family Medicine; Visit Provider Family Medicine
DX: M81.0 Age-related osteoporosis without current pathological fracture (principal); D64.9 Anemia, unspecified; E87.6 Hypokalemia
CPT/HCPCS: 36415; 77080; 80048; 85027

== ENCOUNTER → 2018-04-06 15:22 | Outpatient (CLI) | payer MEDICARE, SELFPAY ==
--- NOTE | 2018-04-06 15:24 | RAD_ITS ---
STUDY: X-RAY - PELVIS AND LEFT HIP REASON FOR EXAM: Pain, hip repair in December. TECHNIQUE: Radiological exam, hip, unilateral, with pelvis when performed; 2 or 3 views. COMPARISON: Radiographs 02/09/2018. FINDINGS: There is vascular calcification. Normal bilateral iliac wings, sacroiliac joints and visualized sacrum. Normal bilateral superior and inferior pubic rami. Normal pubic symphysis. Normal bilateral ischial tuberosities. There is a hip nail with intramedullary jorge a transfixing a left intertrochanteric hip fracture with progressive healing since the prior study and without change in alignment and position. There is also avulsion of the lesser trochanter. RAD/HIP, UNI W/ Pelvis 2-3 Views IMPRESSION: ORIF of left intertrochanteric hip fracture with progressive healing. Electronically Signed: Bogdan Doshi MD at 12:01 EDT Tel , Service support ,
== END ==
PROVIDERS: Family Provider Family Medicine; PCP Family Medicine; Referring Provider Orthopaedic Surgery; Visit Provider Orthopaedic Surgery
DX: S72.002A Fracture of unspecified part of neck of left femur, initial encounter for closed fracture (principal)
CPT/HCPCS: 73502

== ENCOUNTER → 2018-12-14 | Outpatient (CLI) | payer MEDICARE, SELFPAY ==
[2018-11-16 11:34] VITALS: BMI 22.4
--- NOTE | 2018-12-14 10:55 | RAD_ITS ---
STUDY: X-RAY - PELVIS AND LEFT HIP REASON FOR EXAM: Postop. TECHNIQUE: 2 views of the pelvis and hip. COMPARISON: Radiographs 04/06/2018. FINDINGS: There is vascular calcification. There is osteopenia. Normal bilateral iliac wings, sacroiliac joints and visualized sacrum. Normal bilateral superior and inferior pubic rami. Normal pubic symphysis. Normal bilateral ischial tuberosities. There is a left hip nail with intramedullary jorge a transfixing a healed intertrochanteric fracture. Normal acetabulum. Normal hip joint. RAD/HIP, UNI W/ Pelvis 2-3 Views IMPRESSION: Intact orthopedic hardware transfixing a healed left intertrochanteric fracture. Electronically Signed: Bogdan Doshi MD at 16:00 EDT Tel , Service support ,
== END | disposition home or self-care (01) ==
LOC: HPRAD 10:53
PROVIDERS: Family Provider Family Medicine; PCP Family Medicine; Referring Provider Orthopaedic Surgery; Visit Provider Orthopaedic Surgery
DX: S72.002A Fracture of unspecified part of neck of left femur, initial encounter for closed fracture (principal)
CPT/HCPCS: 73502

== ENCOUNTER 2019-03-16 08:25 | Emergency (ER) | payer MEDICARE, SELFPAY ==
[2018-12-14 11:06] VITALS: BMI 22.4
[2019-03-16 08:26] VITALS: BP 154/76; PULSE 68; RESP 20; TEMP 36.8; O2SAT 97; BMI 21.9
--- NOTE | 2019-03-16 08:42 | ED.DCSUM_ITS ---
- ER Visit Summary Date of Service: 03/16/19 Chief Complaint: Fall History of Present Illness: The patient is a 79 F who presents after a fall that occurred today. Patient states she was walking up her steps when she missed a step. Patient states she fell forward into her bathroom and did not fall down any steps. Patient thinks she did hit her head but denies any loss of consciousness. Patient states her pain is mostly in her left shoulder and humerus. Patient states her pain is aching but sharp with movement. Patient denies any paresthesias or weakness. Patient states she was able to get to a phone after the fall. Physical Examination: Vital signs are stable. Patient is afebrile. Patient is in no acute distress. Pupils are equal, round, and reactive to light bilaterally. Extraocular muscles are intact. Oral mucosa is pink and moist. Neck is supple. Trachea is midline. There is no JVD noted. Heart was regular rate and rhythm. Lungs are clear and equal bilaterally. Abdomen is soft. Bowel sounds are normal. There is no tenderness. Musculoskeletal exam reveals tenderness over the proximal humerus. There is some edema and ecchymosis noted. There is no obvious deformity noted. Range of motion was limited in all motions of the left shoulder secondary to pain. Radial pulses are equal bilaterally. Sensation was intact to light touch in the radial, median, ulnar, and axillary areas. Test Results: X-rays of the left shoulder were obtained. There is a nondisplaced fracture through the surgical neck of the left proximal humerus. These were interpreted by the radiologist and myself. Emergency Department Course and Treatment: Patient was given a dose of morphine here. Patient was having persistent pain. Patient was given a dose of Carlisle. Patient was placed in a sling and swath. Patient was instructed to follow-up with her primary care physician in 5 to 7 days. Patient was given a prescription for Carl[place]. Patient and family understood and were agreeable with the plan. All questions were answered. Disposition: Discharge home Impression: 1. Left proximal humerus fracture This note was generated with [employer] dictation software. It may contain incorrect words, spelling, and punctuation that were not noted in review of the chart prior to signing ED Disposition - Plan for ED Patient: Disposition: Home or Assisted Living Diagnosis: Closed fracture of left proximal humerus Instructions: FRACTURE, Upper Extremity Prescriptions: Hydrocodone Bitart/Apap 5-325 [Carlisle 5MG-325MG] 1 tab PO Q6H PRN PRN 3 Days #10 tab PRN Reason: Pain Prescription Printed Referrals: Lalo Palm DO [Primary Care Provider] - 5-7 Days
[2019-03-16] MEDS: Morphine 2 MG/ML Syringe IV (08:49)
--- NOTE | 2019-03-16 08:49 | RAD_ITS ---
STUDY: X-RAY - LEFT SHOULDER REASON FOR EXAM: Female, 79 years old. Left shoulder pain following a fall. TECHNIQUE: 2 view(s) of the shoulder. COMPARISON: None. FINDINGS: There is moderate degenerative arthrosis of the glenohumeral articulation. Normal acromioclavicular joint. Normal acromion. Nondisplaced impacted fracture of the surgical neck of the proximal humerus. There is periarticular soft tissue calcification consistent with a calcific tendinitis. Normal visualized pulmonary apex. RAD/Shoulder min 2 Views IMPRESSION: Nondisplaced transverse fracture of the surgical neck of the humerus. Calcific tendinitis. Electronically Signed: Luke Kumar, at 10:01 EDT , Service support ,
[2019-03-16 10:53] VITALS: BP 124/74; PULSE 78; RESP 18; O2SAT 99
[2019-03-16] MEDS: HYDROcodone Bitartrate/Apap 5/325 Tablet PO (11:37)
== END 2019-03-16 11:59 | disposition home or self-care (01) ==
PROVIDERS: Emergency Provider Emergency Medicine; Family Provider Family Medicine; PCP Family Medicine
DX: S42.215A Unspecified nondisplaced fracture of surgical neck of left humerus, initial encounter for closed fracture (principal); W10.9XXA Fall (on) (from) unspecified stairs and steps, initial encounter; Y93.01 Activity, walking, marching and hiking; Y92.9 Unspecified place or not applicable; J34.89 Other specified disorders of nose and nasal sinuses; M81.0 Age-related osteoporosis without current pathological fracture; Z86.2 Personal history of diseases of the blood and blood-forming organs and certain disorders involving the immune mechanism; Z79.899 Other long term (current) drug therapy
CPT/HCPCS: 73030; 96374; 99284; J7030; A4216

== ENCOUNTER → 2019-03-30 11:40 | Outpatient (CLI) | payer MEDICARE, SELFPAY ==
[2019-03-23 09:48] VITALS: BMI 21.2
--- NOTE | 2019-03-30 11:41 | RAD_ITS ---
STUDY: X-RAY - LEFT HUMERUS REASON FOR EXAM: Fracture follow-up. TECHNIQUE: 2 view(s) of the humerus. COMPARISON: None. FINDINGS: There is a nondisplaced fracture of the surgical neck of the humerus. There is calcific tendinitis adjacent to the greater tuberosity. There is a small granuloma in the left upper lung. RAD/Humerus min 2 Views IMPRESSION: No interval change of proximal humeral fracture. Electronically Signed: Bogdan Doshi MD at 13:28 EDT Tel , Service support ,
== END ==
PROVIDERS: Family Provider Family Medicine; PCP Family Medicine; Visit Provider Family Medicine
DX: S42.302A Unspecified fracture of shaft of humerus, left arm, initial encounter for closed fracture (principal)
CPT/HCPCS: 73060

== ENCOUNTER → 2019-03-30 11:43 | Outpatient (CLI) | payer MEDICARE, SELFPAY ==
[2019-03-23 09:48] VITALS: BMI 21.2
== END ==
PROVIDERS: Family Provider Family Medicine; PCP Family Medicine; Referring Provider Family Medicine; Visit Provider Family Medicine
DX: Z00.00 Encounter for general adult medical examination without abnormal findings (principal)

== ENCOUNTER → 2019-04-28 12:03 | Outpatient (CLI) | payer MEDICARE, SELFPAY ==
[2019-04-27 14:59] VITALS: BMI 21.2
--- NOTE | 2019-04-28 12:05 | RAD_ITS ---
STUDY: X-RAY - LEFT HUMERUS REASON FOR EXAM: Female, 79 years old. Fracture. TECHNIQUE: 2 view(s) of the humerus. COMPARISON: None. FINDINGS: There is diffuse demineralization of the humerus. There is a comminuted fracture involving the humeral head including the greater tuberosity and humeral neck. There is displacement of the major fragment along the greater tuberosity. There is no demonstrated soft tissue abnormality. No other fractures are seen. RAD/Humerus min 2 Views IMPRESSION: Comminuted fracture of the humeral head and neck as described above. Electronically Signed: Tisha Martines MD at 2:54 EST , Service support ,
== END ==
PROVIDERS: Family Provider Family Medicine; PCP Family Medicine; Referring Provider Family Medicine; Visit Provider Family Medicine
DX: S42.302A Unspecified fracture of shaft of humerus, left arm, initial encounter for closed fracture (principal)
CPT/HCPCS: 73060

== ENCOUNTER → 2019-05-20 09:49 | Outpatient (CLI) | payer MEDICARE, SELFPAY ==
[2019-05-06 09:31] VITALS: BMI 21.2
--- NOTE | 2019-05-20 09:51 | RAD_ITS ---
STUDY: X-RAY - LEFT SHOULDER REASON FOR EXAM: Female, 79 years old. Follow-up fracture TECHNIQUE: 4 view(s) of the shoulder. COMPARISON: Prior study of April 28, 2019 FINDINGS: There is a healing slightly impacted comminuted fracture of the left humeral neck and head unchanged in alignment from the prior study. There are mild degenerative changes of the glenoid labrum. Generalized osteopenia is noted. RAD/Shoulder min 2 Views IMPRESSION: Healing slightly impacted comminuted fracture of the left humeral neck and head unchanged in alignment from the previous study. Bony union has not occurred as of yet. Electronically Signed: Guillermo Haider MD at 18:39 EST , Service support ,
== END ==
PROVIDERS: Family Provider Family Medicine; PCP Family Medicine; Referring Provider Orthopaedic Surgery; Visit Provider Orthopaedic Surgery
DX: S42.302A Unspecified fracture of shaft of humerus, left arm, initial encounter for closed fracture (principal)
CPT/HCPCS: 73030

== ENCOUNTER → 2019-06-20 09:40 | Outpatient (CLI) | payer MEDICARE, SELFPAY ==
[2019-05-20 10:14] VITALS: BMI 21.2
--- NOTE | 2019-06-20 09:40 | RAD_ITS ---
STUDY: X-RAY - LEFT SHOULDER REASON FOR EXAM: Fracture recheck. TECHNIQUE: 4 view(s) of the shoulder. COMPARISON: Radiographs 05/20/2019. FINDINGS: There is osteopenia. Normal glenohumeral articulation. Normal acromioclavicular joint. Normal acromion. There is a chronic mildly impacted fracture of the surgical neck of the humerus with no significant change. There is a small focus of calcific tendinitis as on the prior study. Normal visualized pulmonary apex. RAD/Shoulder min 2 Views IMPRESSION: Chronic mildly impacted fracture of the surgical neck of the humerus with little interval change. Electronically Signed: Bogdan Doshi MD at 15:37 EST Tel , Service support ,
== END ==
PROVIDERS: Family Provider Family Medicine; PCP Family Medicine; Referring Provider Orthopaedic Surgery; Visit Provider Orthopaedic Surgery
DX: S42.302A Unspecified fracture of shaft of humerus, left arm, initial encounter for closed fracture (principal)
CPT/HCPCS: 73030

== ENCOUNTER → 2019-08-24 10:42 | Outpatient (CLI) | payer MEDICARE, SELFPAY ==
[2019-06-20 10:19] VITALS: BMI 21.2
[2019-08-24 12:21] LABS: Absolute Lymphocyte Count 1.76 X10^3/uL (0.83-4.51); Absolute Neutrophil Count 2.5 X10^3/uL (2.0-7.7); Basophil# 0.05 X10^3/uL; Eosinophil# 0.09 X10^3/uL; Eosinophils% 1.8 % (0-5); Hematocrit 43.4 % (37-47); Hemoglobin 13.9 g/dL (12.0-15.0); Lymphocyte # 1.76 X10^3/ul (4.0); Lymphocyte % 35.8 % (19-41); Mean Corpuscular Hgb 30.6 pg (27.0-32.0); Mean Corpuscular Volume 95.6 fL (81-99); Mean Platelet Vol. 9.3 fl (6.2-12.0); Monocyte# 0.52 X10^3/uL; Monocyte% 10.6 % (0-10); NRBC Flagged by Analyzer 0 % (0-5); Neutrophil # 2.49 X10^3/uL (2.7-7.7); Neutrophil % 50.6 % (47-70); Platelet Count 326 K/mm3 (150-450); RBC Distribution Width SD 41.8 fl (35.1-43.9); Red Blood Count 4.54 M/mm3 (4.2-5.4); White Blood Count 4.9 K/mm3 (4.4-11.0)
[2019-08-24 12:41] LABS: ALB/GLOB Ratio 1.1 RATIO (0.9-2.4); AST(SGOT) 30 U/L (15-37); Alanine Aminotransfer ALT/SGPT 32 U/L (13-56); Albumin, Serum 4.1 g/dL (3.2-5.0); Alkaline Phosphatase 91 U/L (45-117); Anion Gap 3 (5-15); BUN 11 mg/dL (7-18); BUN/Creat Ratio 13.7 RATIO (10-20); Calcium,Total 9.3 mg/dL (8.5-10.1); Chloride 106 mmol/L (98-107); EST Glomerular Filtration Rate 74 mL/min (>60); Est Glom Filt Rate - Afr Amer 89 mL/min (>60); Globulin 3.6 g/dL (2.2-4.2); Glucose 93 mg/dL (74-106); Potassium 3.9 mmol/L (3.5-5.1); Protein, Total 7.7 g/dL (6.4-8.2); Sodium Level 140 mmol/L (136-145)
== END ==
PROVIDERS: PCP Family Medicine; Referring Provider Family Medicine; Visit Provider Family Medicine
DX: S42.302A Unspecified fracture of shaft of humerus, left arm, initial encounter for closed fracture (principal); R53.83 Other fatigue; G25.0 Essential tremor
CPT/HCPCS: 36415; 80053; 80184; 80188; 85025

== ENCOUNTER → 2020-07-06 10:14 | Outpatient (CLI) | payer MEDICARE, SELFPAY ==
[2020-07-05 14:17] VITALS: BMI 21.0
--- NOTE | 2020-07-06 10:16 | RAD_ITS ---
STUDY: X-RAY - PELVIS AND LEFT HIP REASON FOR EXAM: Female, 80 years old. Left hip pain, fell on Jun 24 -- hip surgery was 3 yrs ago TECHNIQUE: 3 views of the pelvis and hip. COMPARISON: Comparison is made with prior study dated 12/14/2018. FINDINGS: Moderate amount of fecal material seen in the colon. There are multiple calcified phleboliths. Normal bilateral iliac wings, sacroiliac joints and visualized sacrum. Normal bilateral superior and inferior pubic rami. Normal pubic symphysis. Normal bilateral ischial tuberosities. The patient is status post left hip nail with intramedullary jorge a transfixing a healed intertrochanteric fracture. This is unchanged. RAD/HIP, UNI W/ Pelvis 2-3 Views IMPRESSION: No change since prior study. Electronically Signed: Luke Kumar MD at 14:49 EST , Service support ,
== END ==
PROVIDERS: PCP Family Medicine; Referring Provider Nurse Practitioner Family; Visit Provider Nurse Practitioner Family
DX: M25.552 Pain in left hip (principal); W19.XXXA Unspecified fall, initial encounter; Y92.009 Unspecified place in unspecified non-institutional (private) residence as the place of occurrence of the external cause
CPT/HCPCS: 73502

== ENCOUNTER 2020-12-12 16:53 | Outpatient (RCR) | payer MEDICARE, SELFPAY ==
[2020-08-27 14:28] VITALS: BMI 21.0
== END 2021-01-16 23:59 ==
LOC: IMMUN 16:53
PROVIDERS: PCP Family Medicine; Visit Provider Family Medicine
DX: Z23 Encounter for immunization (principal)

== ENCOUNTER → 2020-12-24 11:39 | Outpatient (CLI) | payer MEDICARE, SELFPAY ==
[2020-08-27 14:28] VITALS: BMI 21.0
[2020-12-24 12:58] LABS: Erythrocyte Sedimentation Rate 4 mm/hr (0-30)
[2020-12-24 13:35] LABS: Absolute Lymphocyte Count 2.07 X10^3/uL (0.83-4.51); Absolute Neutrophil Count 3.5 X10^3/uL (2.0-7.7); Basophil# 0.03 X10^3/uL; Basophil% 0.5 % (0-1); Eosinophil# 0.15 X10^3/uL; Eosinophils% 2.3 % (0-5); Hemoglobin 12.3 g/dL (12.0-15.0); Lymphocyte # 2.07 X10^3/ul (0.83-4.51); Lymphocyte % 32.1 % (19-41); Mean Corp Hgb Conc 31.5 g/dL (32-36); Mean Corpuscular Hgb 30.1 pg (27.0-32.0); Mean Corpuscular Volume 95.4 fL (81-99); Mean Platelet Vol. 9.1 fl (6.2-12.0); Monocyte# 0.66 X10^3/uL; Monocyte% 10.2 % (0-10); NRBC Flagged by Analyzer 0 % (0-5); Neutrophil # 3.52 X10^3/uL (2.7-7.7); Neutrophil % 54.6 % (47-70); Platelet Count 294 K/mm3 (150-450); RBC Distribution Width CV 12.8 % (11.6-14.6); RBC Distribution Width SD 44.6 fl (35.1-43.9); Red Blood Count 4.09 M/mm3 (4.2-5.4); White Blood Count 6.5 K/mm3 (4.4-11.0)
[2020-12-24 13:49] LABS: ALB/GLOB Ratio 1.2 RATIO (0.9-2.4); AST(SGOT) 27 U/L (15-37); Alanine Aminotransfer ALT/SGPT 25 U/L (13-56); Albumin, Serum 3.9 g/dL (3.2-5.0); Alkaline Phosphatase 60 U/L (45-117); Anion Gap 6 (5-15); BUN 15 mg/dL (7-18); BUN/Creat Ratio 20.2 RATIO (10-20); CRP < 2.90 mg/L (0.0-3.0); Calcium,Total 8.9 mg/dL (8.5-10.1); Chloride 108 mmol/L (98-107); Creatinine, Serum 0.74 mg/dL (0.55-1.02); EST Glomerular Filtration Rate 80 mL/min (>60); Est Glom Filt Rate - Afr Amer 97 mL/min (>60); Globulin 3.2 g/dL (2.2-4.2); Glucose 90 mg/dL (74-106); Potassium 3.9 mmol/L (3.5-5.1); Protein, Total 7.1 g/dL (6.4-8.2); Rheumatoid Factor < 10.0 IU/mL (<15); Sodium Level 140 mmol/L (136-145)
[2020-12-26 15:06] LABS: CCP IgG Antibodies 13 units (0-19)
== END ==
PROVIDERS: PCP Family Medicine; Referring Provider Internal Medicine Rheumatology; Visit Provider Internal Medicine Rheumatology
DX: M47.897 Other spondylosis, lumbosacral region (principal); M51.37 Other intervertebral disc degeneration, lumbosacral region; G25.0 Essential tremor; G25.81 Restless legs syndrome; M16.0 Bilateral primary osteoarthritis of hip
CPT/HCPCS: 36415; 80053; 85025; 85652; 86140; 86200; 86431

== ENCOUNTER 2021-12-10 20:15 | Inpatient (IN) | payer MEDICARE, SELFPAY ==
[2021-12-10 20:16] VITALS: BP 94/50; PULSE 89; PULSE 94; RESP 16; RESP 18; TEMP 37.1; O2SAT 97; O2SAT 98; BMI 22.3
[2021-12-10 20:22] VITALS: O2SAT 99
--- NOTE | 2021-12-10 21:02 | EKG12_ITS ---
Test Reason : GEN ILL Blood Pressure : / mmHG Vent. Rate : 096 BPM Atrial Rate : 096 BPM P-R Int : 146 ms QRS Dur : 076 ms QT Int : 334 ms P-R-T Axes : 055 -18 084 degrees QTc Int : 421 ms Somatic/Motion Artifact Normal sinus rhythm Septal infarct , age undetermined, cannot be excluded Nonspecific ST and T wave abnormality Abnormal ECG Confirmed by FLORESITA SÁNCHEZ, KALEY ([id number]), editorial cartoonist BRAD DOCKERY ([id number]) on 12/12/2021 11:03:38 AM Referred By: SERA Confirmed By:KALEY CANAS MD
--- NOTE | 2021-12-10 21:02 | CT_ITS ---
STUDY: CT BRAIN WITHOUT CONTRAST REASON FOR EXAM: Female, 81 years old. fall RADIATION DOSAGE (If Supplied By Facility): CTDIvol = ( 44.99 ) mGy, DLP = ( 812.98 ) mGycm TECHNIQUE: Transaxial CT imaging of the brain was performed without administration of intravenous contrast material. Individualized dose optimization techniques were used for this CT. COMPARISON: No relevant priors. FINDINGS: BRAIN: Normal jimenez/white matter differentiation. VENTRICLES: No hydrocephalus. EXTRA-AXIAL SPACES: No hemorrhages, fluid collections, or masses. CALVARIUM/SKULL BASE: Normal. FACE/SINUSES: Fluid level in the right maxillary sinus. SOFT TISSUES: Normal. OTHER: None. CONCLUSION: No intracranial hemorrhage or depressed calvarial fracture. Right maxillary sinus fluid, correlate for acute sinusitis. Electronically Signed: Guero Birch MD at 23:17 EDT , CT/Brain/Head without Contrast IMPRESSION: undefined
--- NOTE | 2021-12-10 21:02 | CT_ITS ---
STUDY: CT CERVICAL SPINE WITHOUT CONTRAST REASON FOR EXAM: Female, 81 years old. fall RADIATION DOSAGE (If Supplied By Facility): CTDIvol = ( 13.84 ) mGy, DLP = ( 265.18 ) mGycm TECHNIQUE: High resolution transaxial imaging was performed without contrast material. Sagittal and coronal images were reconstructed. Individualized dose optimization techniques were used for this CT. COMPARISON: None FINDINGS: ALIGNMENT: Subluxation of the C1 on C2 articular facets measuring up to 4 mm. VERTEBRAL BODIES: No fracture or acute abnormality. DISC SPACES: Multilevel degenerative changes worst between C4 and C7 with intervertebral disc space narrowing contributing to mild spinal canal and neuroforaminal narrowing. POSTERIOR ELEMENTS: Normal. SPINAL CANAL: Normal. PARASPINAL SOFT TISSUES: Normal. LUNG APICES: Visualized portions normal. OTHER: None. CT/Spine Cervical without Contras IMPRESSION: No acute fracture. Subluxation of the C1 on C2 articular facets measuring up to 4 mm, likely due to head positioning. Electronically Signed: Guero Birch MD at 23:20 EDT ,
--- NOTE | 2021-12-10 21:19 | EDS_ITS ---
HPI History of Present Illness Chief Complaint: Fall Informant: patient and family Narrative Narrative: Brought in by EMS son is present after patient is being found down this evening at home in her bedroom. Patient baseline ambulance with a cane she lives alone. Last time they saw communicated with her was through text at 6 PM yesterday. Patient unaware exactly how long she is down however son states she was on the side of the bed which she typically does not get off on. Patient denies any pain symptoms. However son reports a lot arthritis and ostial porosis history. She has had hip fracture in the past. No current hip pain. Denies cough. Patient intermittent confusion as of a few months ago seen her PCP has referral to her neurologist. However per son seems more off this evening. Denies headache. History of essential tremors. [facility] Medical History Acid reflux Anemia Chronic low back pain Fatigue Fracture of left humerus History of ovarian cyst History of wrist fracture Hyperlipemia Osteoporosis Post-nasal drainage Home Medications acetaminophen 500 mg tablet 1,000 mg PO Q8 01/15/18 [Rx Last Taken Unknown] calcium citrate 250 mg calcium-vitamin D3 5 mcg (200 unit) tablet 1 tab PO TID 03/23/19 [History Last Taken Unknown] sennosides 8.6 mg-docusate sodium 50 mg tablet 2 tab PO BID PRN 04/27/19 [History Last Taken Unknown] fluticasone propionate 50 mcg/actuation nasal spray,suspension See Rx Instructions .Route .COMPLEX ##16 06/13/19 [Rx Last Taken Unknown] azelastine 137 mcg (0.1 %) nasal spray aerosol 1 spray intranasal BID #30 mL 05/24/20 [Rx Last Taken Unknown] ipratropium bromide 42 mcg (0.06 %) nasal spray 2 spray intranasal TID PRN rahat rgy symptoms #15 mL 05/08/21 [Rx Last Taken Unknown] lidocaine 5 % topical patch 1 patch topical DAILY #30 ea 05/08/21 [Rx Last Taken Unknown] triamcinolone acetonide 0.1 % topical ointment 1 applic topical DAILY #30 grams 05/30/21 [Rx Last Taken Unknown] pramipexole 0.5 mg tablet 0.5 mg PO QHS #90 tabs 09/26/21 [Rx Last Taken Unknown] propranolol 20 mg tablet 20 mg PO TID #180 tabs 09/26/21 [Rx Last Taken Unknown] Allergy/AdvReac Type Severity Reaction Status Date / Time No Known Allergies Allergy Verified 12/10/21 20:16 Family History Grandmother Colon cancer Father Colon cancer Heart disease Brother Colon cancer Heart disease Mother Heart disease High cholesterol Surgical History History of carpal tunnel surgery of left wrist History of hip surgery History of orthopedic surgery Social History (Updated 12/11/21 @ 00:[address] Karon Nunes MD) household members: none Smoking Status: Former smoker how long ago did patient quit smokin alcohol intake: never substance use type: does not use what type of physical activity do you participate in: other details: PT frequency: 1-2 times per week ROS ROS ED Constitutional Constitutional ED: Denies chills, fever(s) or sweats Eyes Eyes: Denies change in vision ENT ENT ED: Denies dysphagia or sore throat Cardiovascular Cardiovascular: Denies chest pain, leg edema, palpitations or racing heartbeat Respiratory/Chest Respiratory/Chest: Denies cough, dyspnea or dyspnea on exertion Gastrointestinal Gastrointestinal: Denies abdominal pain, diarrhea, nausea or vomiting Genitourinary Genitourinary ED: Denies dysuria, hematuria or urinary frequency Musculoskeletal Musculoskeletal: Denies back pain, extremity pain or neck pain Integumentary Denies rash or wounds Neurologic Neurologic: Reports other Details: Chronic tremors ; Denies headache(s), paresthesias or weakness EXAM Physical Exam Const Vital Signs: 12/10/21 20:16 12/10/21 20:16 12/10/21 20:22 Temperature 98.7 F Temperature Source Temporal Pulse Rate 89 94 Respiratory Rate 16 18 Respiratory Effort Normal Short of Breath Respiratory Depth Shallow Respiratory Pattern Tachypnea Blood Pressure 94/50 L 94/50 L Blood Pressure Mean 64 64 Pulse Ox 98 97 99 Oxygen Delivery Method Room Air Nasal Cannula Nasal Cannula Oxygen Flow Rate (L/min) 3 2 12/10/21 22:22 12/11/21 00:03 Temperature Temperature Source Pulse Rate 96 95 Respiratory Rate 21 H 15 Respiratory Effort Respiratory Depth Respiratory Pattern Blood Pressure 124/95 H 119/97 H Blood Pressure Mean 104 104 Pulse Ox 96 95 Oxygen Delivery Method Nasal Cannula Room Air Oxygen Flow Rate (L/min) 3 Constitutional Narrative: Upper extremity tremors, nontoxic, appears confused. Extremely hard of hearing. General Appearance ED: NAD VIVIANA MICHELLE Narrative: Mild dry mucosal membranes. Hearing aids bilaterally. normocephalic and atraumatic Eyes PERRL, EOMs intact bilaterally and conjunctivae normal General Eye ED: Yes normal appearance of both eyes Neck no lymphadenopathy and supple General: Negative for tenderness Chest Wall palpation of chest normal Chest: Negative for tenderness Resp normal respiratory effort and normal air movement Effort and Inspection: symmetric chest movement; Negative for respiratory distress Cardio regular rate, regular rhythm and no murmurs Peripheral Pulses: pulses 2+ throughout GI normal to inspection, nondistended, normoactive bowel sounds and non-tender Palpation: Negative for guarding or rebound tenderness present Back/Spine no CVA tenderness and no thoracic nor lumbar tenderness Back/Spine Narrative: No ecchymosis in the back. Extremity normal to inspection Extremity Narrative: No deformities. Negative logroll lower extremities. Neurovascular intact x4. General Extremety ED: Negative for edema or tenderness General Extremity: Negative for edema Neuro no sensory deficits noted Neuro Narrative: Alert and oriented to person, appears mildly confused unable to clearly say place and time. Sensorium / Orientation: awake and alert Skin no rashes or lesions noted and no wounds MDM MDM MDM Narrative Medical decision making narrative: Patient slightly confused on exam. Trauma scans head and neck negative. Chest x-ray 1 view reviewed by myself read by radiology no infiltrates 10 mm granuloma left upper lobe was noted. Labs White count 13.7 hemoglobin 12.3. Electrolytes with potassium 2.7. EKG sinus rhythm with artifacts. Creatinine 0.84 BUN 26. CPK returned at 5736. She was initially given liter fluid bolus she is continued on IV fluids. Urine cath collected and pending at this time. Patient ordered for potassium liquid replacement. With rhabdomyolysis, will discuss with hospitalist for admission. Urine returned positive for infection. Likely explaining her encephalopathy. Culture sent. She is covered with Rocephin. I discussed with Dr. Nunes for admission for further management. IV fluids continued. Lab Data Attestation: I reviewed the patient's lab results. Labs: Laboratory Results - last 24 hr 12/10/21 12/10/21 12/10/21 22:21 22:21 22:21 WBC 13.7 H RBC 4.08 L Hgb 12.3 Hct 36.5 L MCV 89.5 MCH 30.1 MCHC 33.7 RDW Std Deviation 45.7 H RDW Coeff of Tiffanie 13.9 Plt Count 283 MPV 9.2 Immature Gran % (Auto) 0.600 Neut % (Auto) 79.5 H Lymph % (Auto) 7.3 L Bay % (Auto) 12.5 H Eos % (Auto) 0.0 Baso % (Auto) 0.1 Absolute Neuts (auto) 10.9 H Absolute Lymphs (auto) 1.00 Nucleated RBC % 0 Differential Comment SCANNED Diff Path Review May foll Sodium 137 Potassium 2.7 L* Chloride 103 Carbon Dioxide 20.0 L Anion Gap 14 BUN 26 H Creatinine 0.84 Estim Creat Clear Calc 48.07 Est GFR (MDRD) Af Amer 84 Est GFR (MDRD) Non-Af 69 BUN/Creatinine Ratio 30.9 H Glucose 130 H Calcium 8.7 Magnesium 2.2 Total Bilirubin 0.60 AST 133 H ALT 48 Alkaline Phosphatase 95 Total Creatine Kinase 5736 H Total Protein 7.2 Albumin 3.2 Globulin 4.0 Albumin/Globulin Ratio 0.8 L Urine Color Urine Clarity Urine pH Ur Specific [place] Urine Protein Urine Glucose (UA) Urine Ketones Urine Occult Blood Urine Nitrite Urine Bilirubin Urine Urobilinogen Ur Leukocyte Esterase Urine RBC Urine WBC Ur Squamous Epith Cells Amorphous Sediment Urine Bacteria Urine Mucus 12/10/21 23:44 WBC RBC Hgb Hct MCV MCH MCHC RDW Std Deviation RDW Coeff of Tiffanie Plt Count MPV Immature Gran % (Auto) Neut % (Auto) Lymph % (Auto) Bay % (Auto) Eos % (Auto) Baso % (Auto) Absolute Neuts (auto) Absolute Lymphs (auto) Nucleated RBC % Differential Comment Diff Path Review Sodium Potassium Chloride Carbon Dioxide Anion Gap BUN Creatinine Estim Creat Clear Calc Est GFR (MDRD) Af Amer Est GFR (MDRD) Non-Af BUN/Creatinine Ratio Glucose Calcium Magnesium Total Bilirubin AST ALT Alkaline Phosphatase Total Creatine Kinase Total Protein Albumin Globulin Albumin/Globulin Ratio Urine Color Yellow Urine Clarity Sl. Cloudy Urine pH 6.0 Ur Specific [place] 1.020 Urine Protein 100 H Urine Glucose (UA) Normal Urine Ketones 150 A* Urine Occult Blood 250 H Urine Nitrite Negative Urine Bilirubin Negative Urine Urobilinogen 1 H Ur Leukocyte Esterase 100 H Urine RBC 0-5 SEEN Urine WBC 50-100 SEEN Ur Squamous Epith Cells 0 SEEN Amorphous Sediment 2+ Urine Bacteria 4+ Urine Mucus 0 SEEN Radiography Diagnostic Testing: Clinical Impression(s) from Imaging Studies Brain CT 12/10/21 21:02 IMPRESSION: undefined Cervical Spine CT 12/10/21 21:02 IMPRESSION: No acute fracture. Subluxation of the C1 on C2 articular facets measuring up to 4 mm, likely due to head positioning. Electronically Signed: Guero Birch MD at 23:20 EDT , Chest X-Ray 12/10/21 22:44 IMPRESSION: No acute cardiopulmonary disease. Left upper lobe 10 mm pulmonary nodule, may represent granuloma. Electronically Signed: Guero Birch MD at 23:11 EDT , EKG Initial EKG: Attestation: I personally reviewed and interpreted this EKG as follows: Comments: Sinus rate 96, no ST changes significant artifacts at baseline. Discharge Plan Dx/Rx/DC Orders Clinical Impression: Rhabdomyolysis, Essential tremor, Dehydration, Acute hypokalemia, Encephalopathy, Acute UTI Disposition Disposition: Acute Care Hospital [facility]
[2021-12-10] MEDS: 0.9% Normal Saline 1,000 ML 1000 ML IV (22:21)
[2021-12-10 22:22] VITALS: BP 124/95; PULSE 96; RESP 21; O2SAT 96
[2021-12-10 22:40] LABS: Absolute Neutrophil Count 10.9 X10^3/uL (2.0-7.7); Basophil# 0.01 X10^3/uL; Basophil% 0.1 % (0-1); Hematocrit 36.5 % (37-47); Hemoglobin 12.3 g/dL (12.0-15.0); Lymphocyte % 7.3 % (19-41); Mean Corp Hgb Conc 33.7 g/dL (32-36); Mean Corpuscular Hgb 30.1 pg (27.0-32.0); Mean Corpuscular Volume 89.5 fL (81-99); Mean Platelet Vol. 9.2 fl (6.2-12.0); Monocyte# 1.71 X10^3/uL; Monocyte% 12.5 % (0-10); NRBC Flagged by Analyzer 0 % (0-5); Neutrophil # 10.91 X10^3/uL (2.7-7.7); Neutrophil % 79.5 % (47-70); POSITIVE DIFFERENTIAL YES; Platelet Count 283 K/mm3 (150-450); RBC Distribution Width CV 13.9 % (11.6-14.6); RBC Distribution Width SD 45.7 fl (35.1-43.9); Red Blood Count 4.08 M/mm3 (4.2-5.4); White Blood Count 13.7 K/mm3 (4.4-11.0)
--- NOTE | 2021-12-10 22:44 | RAD_ITS ---
INDICATION: confusion EXAMINATION/TECHNIQUE: X-RAY - XR Chest 1 View COMPARISON: None. FINDINGS: LINES/DEVICES: None. LUNGS: Biapical pleural/parenchymal scarring. Left upper lobe 10 mm nodule. No consolidation, edema or effusion. No pneumothorax. MEDIASTINUM AND CARDIOVASCULAR STRUCTURES: Atherosclerotic calcifications. Cardiac mediastinal contours are within normal limits. BONES AND SOFT TISSUES: Unremarkable. RAD/Chest 1 View (Portable) IMPRESSION: No acute cardiopulmonary disease. Left upper lobe 10 mm pulmonary nodule, may represent granuloma. Electronically Signed: Guero Birch MD at 23:11 EDT ,
[2021-12-10 22:45] LABS: Differential Indicated SCAN CRITERIA MET
[2021-12-10 23:21] LABS: Differential Comment SCANNED
[2021-12-10 23:37] LABS: ALB/GLOB Ratio 0.8 RATIO (0.9-2.4); AST(SGOT) 133 U/L (15-37); Alanine Aminotransfer ALT/SGPT 48 U/L (13-56); Albumin, Serum 3.2 g/dL (3.2-5.0); Alkaline Phosphatase 95 U/L (45-117); Anion Gap 14 (5-15); BUN 26 mg/dL (7-18); BUN/Creat Ratio 30.9 RATIO (10-20); CPK Total, Creatine Kinase 5736 U/L (26-192); Calcium,Total 8.7 mg/dL (8.5-10.1); Chloride 103 mmol/L (98-107); Creatinine, Serum 0.84 mg/dL (0.55-1.02); EST Glomerular Filtration Rate 69 mL/min (>60); Est Glom Filt Rate - Afr Amer 84 mL/min (>60); Estimated Creatinine Clearance 48.07 ml/min; Glucose 130 mg/dL (74-106); Potassium 2.7 mmol/L (3.5-5.1); Protein, Total 7.2 g/dL (6.4-8.2); Sodium Level 137 mmol/L (136-145)
[2021-12-11] VITALS (9 sets, daily range): BP systolic 97–152; BP diastolic 52–97; PULSE 66–95; RESP 15–18; TEMP 36.7–38.2; O2SAT 93–95; BMI 16.7
[2021-12-11 00:09] LABS: Mucous, Urine 0 SEEN /hpf (<or=2+); Squamous Epithelial Cells - UA 0 SEEN /hpf (5-10)
[2021-12-11 00:12] LABS: Color, Urine Yellow (Yellow); Glucose, Dipstick Normal (Normal); Leukocyte Esterase-Dipstick 100 /ul (Negative); Nitrite-Dipstick Negative (Negative); Occult Blood-Urine 250 /ul (Negative); Protein-Dipstick 100 mg/dl (Negative); Urine Bilirubin Dipstick Negative (Negative); Urine Clarity Sl. Cloudy (Clear); Urine Urobilinogen 1 mg/dl (Normal)
[2021-12-11 00:16] LABS: Ketone-Dipstick 150 mg/dl (Negative)
--- NOTE | 2021-12-11 00:18 | HP.PCM.HOS_ITS ---
HPI - General General Date of Admission: 12/11/21 Date of Service: 12/11/21 Chief Complaint: Fall from bed, prolonged likely downtime. HPI Narrative The patient is an 81 y/o F notably hard of hearing living alone with noted chronic cane usage w/ PMHx: RLS, GERD, Essential tremors, Allergic rhinitis, Former tobacco use, Chronic anemia, HLD, history of intermittent confusion with planned outpatient neurology evaluation with possible dementia component who presents to the [facility] ED on 12/10/21 with history of being found down at her home in her bedroom with last contact with her family noted to be at 6 PM the day prior with no reported complaints or any pain although she does have underlying arthritis with family reporting that she does seem more off as far as her baseline intermittent confusion (at least 3 months) prompting ED evaluation. The clothing she has on was from the daytime. Son reports that she had a loose stool and potentially an emesis near her where she was found. Work-up in the ED included EKG w/ SR with no acute evidence of ischemia but notable artifact secondray to UE tremors, T98.7, heart rate 89, BP initially 94/50 with most recent repeat 124/95, respiratory rate is 16, 98% on room air eventually placed on 2 to 3 L nasal cannula noted to be 96 to 99%, CBC with WC 13.7, hemoglobin 12.3, platelet 283 with left shift, CMP with potassium 2.7, carbon oxide 20, BUN/creatinine 26/0.84, glucose 130, total creatinine kinase 5736, chest x-ray with no acute cardiopulmonary finding, left upper lobe 10 mm pulmonary nodule possibly granuloma, CT of the brain with no intracranial hemorrhage or depressed calvarial fracture with right maxillary sinus fluid, CT cervical spine with no acute fracture with subluxation of the C1 on C2 articular facets measuring up to 4 mm likely secondary to head positioning. In the ED patient ministered normal saline 1 L bolus, potassium oral supplementation and Tylenol. [facility] Medical History Acid reflux Anemia Chronic low back pain Fatigue Fracture of left humerus History of ovarian cyst History of wrist fracture Hyperlipemia Osteoporosis Post-nasal drainage Home Medications acetaminophen 500 mg tablet 1,000 mg PO Q8 01/15/18 [Rx Last Taken Unknown] calcium citrate 250 mg calcium-vitamin D3 5 mcg (200 unit) tablet 1 tab PO TID 03/23/19 [History Last Taken Unknown] sennosides 8.6 mg-docusate sodium 50 mg tablet 2 tab PO BID PRN 04/27/19 [History Last Taken Unknown] fluticasone propionate 50 mcg/actuation nasal spray,suspension See Rx Instructions .Route .COMPLEX ##16 06/13/19 [Rx Last Taken Unknown] azelastine 137 mcg (0.1 %) nasal spray aerosol 1 spray intranasal BID #30 mL 05/24/20 [Rx Last Taken Unknown] ipratropium bromide 42 mcg (0.06 %) nasal spray 2 spray intranasal TID PRN allergy symptoms #15 mL 05/08/21 [Rx Last Taken Unknown] lidocaine 5 % topical patch 1 patch topical DAILY #30 ea 05/08/21 [Rx Last Taken Unknown] triamcinolone acetonide 0.1 % topical ointment 1 applic topical DAILY #30 grams 05/30/21 [Rx Last Taken Unknown] pramipexole 0.5 mg tablet 0.5 mg PO QHS #90 tabs 09/26/21 [Rx Last Taken Unknown] propranolol 20 mg tablet 20 mg PO TID #180 tabs 09/26/21 [Rx Last Taken Unknown] Allergy/AdvReac Type Severity Reaction Status Date / Time No Known Allergies Allergy Verified 12/10/21 20:16 Family History Grandmother Colon cancer Father Colon cancer Heart disease Brother Colon cancer Heart disease Mother Heart disease High cholesterol Surgical History History of carpal tunnel surgery of left wrist History of hip surgery History of orthopedic surgery Social History (Updated 12/11/21 @ 00:[address] Karon Nunes MD) household members: none Smoking Status: Former smoker how long ago did patient quit smokin alcohol intake: never substance use type: does not use what type of physical activity do you participate in: other details: PT frequency: 1-2 times per week ROS Review of Systems ROS Unobtainable: due to encephalopathy Vital Signs Vital Signs Vital Signs: 12/10/21 20:16 12/10/21 20:16 12/10/21 20:22 Temperature 98.7 F Temperature Source Temporal Pulse Rate 89 94 Respiratory Rate 16 18 Respiratory Effort Normal Short of Breath Respiratory Depth Shallow Respiratory Pattern Tachypnea Blood Pressure 94/50 L 94/50 L Blood Pressure Mean 64 64 Pulse Ox 98 97 99 Oxygen Delivery Method Room Air Nasal Cannula Nasal Cannula Oxygen Flow Rate (L/min) 3 2 12/10/21 22:22 12/11/21 00:03 Temperature Temperature Source Pulse Rate 96 95 Respiratory Rate 21 H 15 Respiratory Effort Respiratory Depth Respiratory Pattern Blood Pressure 124/95 H 119/97 H Blood Pressure Mean 104 104 Pulse Ox 96 95 Oxygen Delivery Method Nasal Cannula Room Air Oxygen Flow Rate (L/min) 3 Weight Weight: 134 lb 0.657 oz Body Mass Index (BMI) 22.3 Physical Exam Narrative Physical Examination: General: Lethargic, arouses but not extremely alert, falls back asleep quickly, not able to answer orientation questions, follows some commands, laying in the ED bed, fatigued. Skin: Normal color, normal turgor, no icterus, no cyanosis except for occasional staged ecchymoses. HEENT: AT/NC, EOM difficult to assess given lethargy and falling back asleep quickly, PERRLA, dry MM, no carotid bruits or JVD noted. Lungs: Diminished, greater bases, appropriate effort, no rales, ronchi or wheezing. Heart: Currently regular rate and rhythm; no gallop, rub audible. Abdomen: Soft, NTTP, ND, mildly hyperactive BS, no HSM. Extremities: No cyanosis, clubbing, or edema. Neurological: Lethargic, arouses but not extremely alert, falls back asleep quickly, not able to answer orientation questions, follows some commands, laying in the ED bed, fatigued, cognitive function not baseline intact; pupils equally reactive to light and accommodation, cranial nerves difficult to assess given lethargy, moving extremities spontaneously, no obvious focal deficits, strength severely global decreased Psychiatric: Affect appears fatigued, lethargic, no acute evidence of depressive or anxiety feelings. Results Lab / Micro Data Result Diagrams: 12/10/21 22:21 12/10/21 22:21 Labs: Laboratory Results - last 24 hr 12/10/21 22:21: WBC 13.7 H, RBC 4.08 L, Hgb 12.3, Hct 36.5 L, MCV 89.5, MCH 30.1, MCHC 33.7, RDW Std Deviation 45.7 H, RDW Coeff of Tiffanie 13.9, Plt Count 283, MPV 9.2, Immature Gran % (Auto) 0.600, Neut % (Auto) 79.5 H, Lymph % (Auto) 7.3 L, [place] % (Auto) 12.5 H, Eos % (Auto) 0.0, Baso % (Auto) 0.1, Absolute Neuts (auto) 10.9 H, Absolute Lymphs (auto) 1.00, Nucleated RBC % 0, Differential Comment SCANNED, Diff Path Review October foll 12/10/21 22:21: Sodium 137, Potassium 2.7 L*, Chloride 103, Carbon Dioxide 20.0 L, Anion Gap 14, BUN 26 H, Creatinine 0.84, Estim Creat Clear Calc 48.07, Est GFR (MDRD) Af Amer 84, Est GFR (MDRD) Non-Af 69, BUN/Creatinine Ratio 30.9 H, Gl ucose 130 H, Calcium 8.7, Total Bilirubin 0.60, AST 133 H, ALT 48, Alkaline Phosphatase 95, Total Creatine Kinase 5736 H, Total Protein 7.2, Albumin 3.2, Globulin 4.0, Albumin/Globulin Ratio 0.8 L 12/10/21 23:44: Urine Color Yellow, Urine Clarity Sl. Cloudy, Urine pH 6.0, Ur Specific [place] 1.020, Urine Protein 100 H, Urine Glucose (UA) Normal, Urine Ketones 150 A*, Urine Occult Blood 250 H, Urine Nitrite Negative, Urine Bi lirubin Negative, Urine Urobilinogen 1 H, Ur Leukocyte Esterase 100 H Radiology Impression Brain CT 12/10/21 21:02 IMPRESSION: undefined Cervical Spine CT 12/10/21 21:02 IMPRESSION: No acute fracture. Subluxation of the C1 on C2 articular facets measuring up to 4 mm, likely due to head positioning. Electronically Signed: Guero Birch MD at 23:20 EDT , Chest X-Ray 12/10/21 22:44 IMPRESSION: No acute cardiopulmonary disease. Left upper lobe 10 mm pulmonary nodule, may represent granuloma. Electronically Signed: Guero Birch MD at 23:11 EDT , Assessment & Plan Assessment/Plan (1) Fall: PLAN: Plan The patient is an 81 y/o F notably hard of hearing living alone with noted chronic cane usage w/ PMHx: RLS, GERD, Essential tremors, Allergic rhinitis, Former tobacco use, Chronic anemia, HLD, history of intermittent confusion with planned outpatient neurology evaluation with possible dementia component who presents to the [facility] ED on 12/10/21 with history of being found down at her home in her bedroom with last contact with her family noted to be at 6 PM the day prior with no reported complaints or any pain although she does have underlying arthritis with family reporting that she does seem more off as far as her baseline intermittent confusion prompting ED evaluation. #1. Mechanical fall with acute rhabdomyolysis: We will admit to medical surgical floor, maintain on fall precautions, encourage frequent positional changes with offloading, continue judicious IV fluids with creatinine kinase trending, monitor I's and O's, monitor urine output, repeat CMP in a.m., PT/OT/case management consultations for discharge planning. #2. Hypokalemia: Admission K+ 2.7, magnesium level requested, supplementation given, repeat level in AM. #3. Incidental left upper lobe pulmonary nodule: Chest x-ray with incidental left upper lobe 10 mm pulmonary nodule, possibly granuloma, recommend outpatient continued follow-up. #4. Acute Encephalopathy on Chronic Underlying suspected dementia without behavioral disturbance history: Certainly could be secondary to #1, continue treatment as noted, urinalysis requested to be cautious, CT head with no acute intracranial findings and CT neck with no acute findings with some subluxation felt secondary to neck positioning only. Given family concerns if no obvious evidence of etiology for increased confusion, ie UTI, does not return to base line with treatment of #1, may need to consider MRI brain. #5. Chronic essential tremors: We will continue patient home propranolol regimen. #6. Allergic rhinitis: We will continue patient home fluticasone and nasal allergy regimens. #7. RLS: We will continue patient nightly Mirapex regimen. #8. GERD: Not on regimen, if complaints may consider adding famotidine. #9. Former tobacco use: Encourage continued tobacco cessation. #10. Hyperlipidemia: Not on statin therapy, defer to outpatient. #11. DVT prophylaxis: SCDs, Lovenox. #12. CODE STATUS: Full code. Charges/Coding Visit Charges Inpatient E&M: 03086 Init Hosp L3
[2021-12-11 00:25] LABS: Amorphous Sediment 2+; Bacteria 4+ /hpf (None Seen); Red Blood Cells-Urine 0-5 SEEN /hpf (0-5); White Blood Cells 50-100 SEEN /hpf (0-5)
[2021-12-11 00:46] LABS: Magnesium 2.2 mg/dL (1.6-2.6)
[2021-12-11] MEDS: Acetaminophen 500 MG Tablet 1000 MG PO (00:49)
[2021-12-11] MEDS: Potassium Chloride Oral Soln 20 MEQ/15 ML UDC 40 MEQ PO (00:51)
[2021-12-11] MEDS: 0.9% Normal Saline 1,000 ML 150 ML IV ×3 (01:01→20:39)
[2021-12-11] MEDS: Ceftriaxone 1 GM/50 ML BAG IV (01:02)
[2021-12-11 03:21] LABS: Absolute Lymphocyte Count 1.05 X10^3/uL (0.83-4.51); Absolute Neutrophil Count 10.8 X10^3/uL (2.0-7.7); Basophil# 0.02 X10^3/uL; Basophil% 0.1 % (0-1); Hematocrit 34.1 % (37-47); Hemoglobin 11.1 g/dL (12.0-15.0); Lymphocyte # 1.05 X10^3/ul (0.83-4.51); Lymphocyte % 7.6 % (19-41); Mean Corp Hgb Conc 32.6 g/dL (32-36); Mean Corpuscular Hgb 29.9 pg (27.0-32.0); Mean Corpuscular Volume 91.9 fL (81-99); Mean Platelet Vol. 9.4 fl (6.2-12.0); Monocyte% 13.1 % (0-10); NRBC Flagged by Analyzer 0 % (0-5); Neutrophil # 10.83 X10^3/uL (2.7-7.7); Neutrophil % 78.6 % (47-70); POSITIVE DIFFERENTIAL YES; Platelet Count 276 K/mm3 (150-450); RBC Distribution Width CV 13.9 % (11.6-14.6); RBC Distribution Width SD 47.1 fl (35.1-43.9); Red Blood Count 3.71 M/mm3 (4.2-5.4); White Blood Count 13.8 K/mm3 (4.4-11.0)
[2021-12-11 04:15] LABS: Procalcitonin 4.19 ng/mL (0.00-0.09)
[2021-12-11 04:22] LABS: Differential Indicated SCAN CRITERIA MET
[2021-12-11 05:11] LABS: ALB/GLOB Ratio 0.8 RATIO (0.9-2.4); AST(SGOT) 123 U/L (15-37); Alanine Aminotransfer ALT/SGPT 45 U/L (13-56); Albumin, Serum 2.8 g/dL (3.2-5.0); Alkaline Phosphatase 80 U/L (45-117); Anion Gap 9 (5-15); BUN 26 mg/dL (7-18); BUN/Creat Ratio 31.4 RATIO (10-20); CPK Total, Creatine Kinase 4864 U/L (26-192); Calcium,Total 7.9 mg/dL (8.5-10.1); Chloride 107 mmol/L (98-107); Creatinine, Serum 0.83 mg/dL (0.55-1.02); EST Glomerular Filtration Rate 70 mL/min (>60); Est Glom Filt Rate - Afr Amer 85 mL/min (>60); Estimated Creatinine Clearance 38.78 ml/min; Globulin 3.5 g/dL (2.2-4.2); Glucose 135 mg/dL (74-106); Potassium 2.9 mmol/L (3.5-5.1); Protein, Total 6.3 g/dL (6.4-8.2); Sodium Level 138 mmol/L (136-145)
[2021-12-11] MEDS: Propranolol 10 MG Tablet 20 MG PO ×3 (06:36→20:46)
[2021-12-11] MEDS: Potassium Chloride 10mEq/100mL 10 MEQ/100 ML IV.SOLN. 100 MEQ IV BOLUS ×4 (08:07→11:41)
[2021-12-11 08:29] LABS: Phosphorus 2.1 mg/dL (2.5-4.9)
[2021-12-11] MEDS: Azelastine HCl NASAL.SRY 1 SPRAY NASAL ×2 (09:26→20:44)
[2021-12-11] MEDS: Lidocaine 5% Patch 1 PATCH TOPICAL (09:27)
[2021-12-11] MEDS: Enoxaparin 40 MG/0.4 ML Syringe SC (09:27)
[2021-12-11] MEDS: Magnesium Chloride 64 MG Delay Rel.Tablet 128 MG PO ×2 (09:28→20:46)
--- NOTE | 2021-12-11 11:40 | CASEMGMT ---
CAM[facility] ADKINS Face to Face with patient for initial transition planning/care coordination assessment. RN LUCILLE introduced self and role at [facility]. Patient sitting in chair, alert and oriented, son and brother at bedside. Patient willing to participate in assessment and is able to answer all questions appropriately. Care providers, pharmacy, and demographics verified. Patient wishes to discharge to SNF at discharge. Patient was provided a list of SNF providers including quality and resource use data and consistent with the patient?s preferred geographic region, medical needs, and insurance network. The patient?s preferred provider is TCU. Patient and famiy state they have no further needs or concerns at this time. SW updated regarding request for TCU. CM to follow for discharge planning needs that may arise. PCP: N[facility]stor Specialists: none Preferred Pharmacy: [facility] Insurance: [facility] Prescription Benefit: yes Living Will/HPOA: yes, son Jeb Bullard LNOK: son, brother Living Arrangements: Patient lives alone in a condo with no steps to enter. Patient was independent at home prior to current illness Transportation: self, son DME/HHC: Patient has shower chair, raised toilet, cane, and grab bars at home. Patient has previously been to TCU in the past. Disposition Plan: Patient to discharge TCU pending acceptance and precert. Katty CAMPBELL, RN, CM
--- NOTE | 2021-12-11 11:56 | CASEMGMT ---
Social Work CM spoke w/pt and family, they would like a referral made to TCU. SW called TCU, waiting to hear back if they can take pt. If TCU can take pt, they will start precert. ELIUD Jay
[2021-12-11 12:29] LABS: Pathologist Review Reviewed
[2021-12-11 12:38] LABS: Pathologist Review Reviewed
--- NOTE | 2021-12-11 12:38 | PN.HOSP_ITS ---
Subjective Subjective Follow-up for fall, rhabdomyolysis. History taken from patient and her son near the bedside. Patient has poor gait and coordination, mobility arthritis of hip and knee joints. Patient is feeling shivering or cold. T-max 100.8 Fahrenheit about 2 AM Objective Data Objective Data Vital Signs: Vital Signs Temp Pulse Resp BP Pulse Ox 98.6 F 84 16 124/65 H 95 12/11/21 03:45 12/11/21 06:30 12/11/21 03:45 12/11/21 06:30 12/11/21 03:45 Oxygen Flow Rate (L/min) 3 Oxygen Delivery Method Room Air Weight: 100 lb 3 oz Body Mass Index (BMI) 16.7 Intake & Output: Intake and Output for Last 24 Hours 12/09/21 12/10/21 12/11/21 23:59 23:59 23:59 Intake Total 1050 / 1050 Balance 1050 / 1050 Lab / Micro Data Result Diagrams: 12/11/21 02:48 12/11/21 02:48 Labs: Laboratory Results - last 24 hr 12/10/21 22:21: WBC 13.7 H, RBC 4.08 L, Hgb 12.3, Hct 36.5 L, MCV 89.5, MCH 30.1, MCHC 33.7, RDW Std Deviation 45.7 H, RDW Coeff of Tiffanie 13.9, Plt Count 283, MPV 9.2, Immature Gran % (Auto) 0.600, Neut % (Auto) 79.5 H, Lymph % (Auto) 7.3 L, [place] % (Auto) 12.5 H, Eos % (Auto) 0.0, Baso % (Auto) 0.1, Absolute Neuts (auto) 10.9 H, Absolute Lymphs (auto) 1.00, Nucleated RBC % 0, Differential Comment SCANNED, Diff Path Review October foll 12/10/21 22:21: Sodium 137, Potassium 2.7 L*, Chloride 103, Carbon Dioxide 20.0 L, Anion Gap 14, BUN 26 H, Creatinine 0.84, Estim Creat Clear Calc 48.07, Est GFR (MDRD) Af Amer 84, Est GFR (MDRD) Non-Af 69, BUN/Creatinine Ratio 30.9 H, Glucose 130 H, Calcium 8.7, Total Bilirubin 0.60, AST 133 H, ALT 48, Alkaline Phosphatase 95, Total Creatine Kinase 5736 H, Total Protein 7.2, Albumin 3.2, Globulin 4.0, Albumin/Globulin Ratio 0.8 L 12/10/21 22:21: Magnesium 2.2 12/10/21 23:44: Urine Color Yellow, Urine Clarity Sl. Cloudy, Urine pH 6.0, Ur Specific [place] 1.020, Urine Protein 100 H, Urine Glucose (UA) Normal, Urine Ketones 150 A*, Urine Occult Blood 250 H, Urine Nitrite Negative, Urine Bilirubin Negative, Urine Urobilinogen 1 H, Ur Leukocyte Esterase 100 H, Urine RBC 0-5 SEEN, Urine WBC 50-100 SEEN, Ur Squamous Epith Cells 0 SEEN, Amorphous Sediment 2+, Urine Bacteria 4+, Urine Mucus 0 SEEN 12/11/21 02:48: Procalcitonin 4.19 H 12/11/21 02:48: WBC 13.8 H, RBC 3.71 L, Hgb 11.1 L, Hct 34.1 L, MCV 91.9, MCH 29.9, MCHC 32.6, RDW Std Deviation 47.1 H, RDW Coeff of Tiffanie 13.9, Plt Count 276, MPV 9.4, Immature Gran % (Auto) 0.600, Neut % (Auto) 78.6 H, Lymph % (Auto) 7.6 L, [place] % (Auto) 13.1 H, Eos % (Auto) 0.0, Baso % (Auto) 0.1, Absolute Neuts (auto) 10.8 H, Absolute Lymphs (auto) 1.05, Nucleated RBC % 0, Diff Path Review October12/11/21 02:48: Sodium 138, Potassium 2.9 L, Chloride 107, Carbon Dioxide 22.0, Anion Gap 9, BUN 26 H, Creatinine 0.83, Estim Creat Clear Calc 38.78, Est GFR (MDRD) Af Amer 85, Est GFR (MDRD) Non-Af 70, BUN/Creatinine Ratio 31.4 H, Glucose 135 H, Calcium 7.9 L, Total Bilirubin 0.30, AST 123 H, ALT 45, Alkaline Phosphatase 80, Total Creatine Kinase 4864 H, Total Protein 6.3 L, Albumin 2.8 L , Globulin 3.5, Albumin/Globulin Ratio 0.8 L Radiography Diagnostic Testing: Radiology Impression Brain CT 12/10/21 21:02 IMPRESSION: undefined Cervical Spine CT 12/10/21 21:02 IMPRESSION: No acute fracture. Subluxation of the C1 on C2 articular facets measuring up to 4 mm, likely due to head positioning. Chest X-Ray 12/10/21 22:44 IMPRESSION: No acute cardiopulmonary disease. Left upper lobe 10 mm pulmonary nodule, may represent granuloma. Physical Exam Narrative Physical exam General: Alert, Oriented x3, Cooperative HEENT: Atraumatic, PERRLA, EOMI, Normocephalic Oral: No Gingival or Mucosal Lesions/ Ulcerations Neck: Supple, No JVD, Negative Carotid Bruits Lungs: Air entry diminished in bilateral lung bases. No crepitation/rhonchi Cardiovascular: Regular rate, Regular Rhythm, Normal S1, Normal S2, No murmurs Abdomen: Bowel Sounds Present, Soft, Non Tender, Non-Distended : No renal angle tenderness. No suprapubic tenderness. Extremities: No edema, Capillary Refill Less than 3 Seconds Skin: No rashes, No breakdown Musculoskeletal: No specific point tenderness of her knees or hip joints. ROM severely restricted. 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 Neurological: Cranial nerves II-XII grossly intact, DTR 2+/4, Neuro grossly intact Psych/Mental Status: Flat affect. Assessment & Plan Assessment/Plan (1) Fall: PLAN: Plan The patient is an 81 y/o F with multiple comorbidities admitted for fall, rhabdomyolysis lethargy and confusion. Patient has been found down I talked to the patient's son and she last asked about 6 PM a day before admission #1. Mechanical fall with acute rhabdomyolysis: Admitted [facility] floor. IV fluid normal saline. CPK around 5000 with gradual improvement noted. PT OT and family preservation caseworker consult. Baseline ambulates with cane, patient lives alone. Patient has history of fracture of left humerus and hip, chronic back pain, essential tremor fall and osteoporosis. #2. Hypokalemia: Admission K+ 2.7, magnesium 2.2. Serum phosphorus 2.1. Potassium replaced. But repeat potassium still 2.9. BUN 36, creatinine 0.8. Prerenal azotemia. #3. Incidental left upper lobe pulmonary nodule: Chest x-ray with incidental left upper lobe 10 mm pulmonary nodule, possibly granuloma, recommend outpatient continued follow-up. #4. 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 Orientation cues. Treat the underlying disorder. UA shows LE 100, WBC 50?100 cells but nitrite negative. CT head with no acute intracranial findings and CT neck with no acute findings with some subluxation felt secondary to neck positioning only. Mild low-grade fever: Mild leukocytosis with left shift. Procalcitonin is 4.19. Exact focus unclear. COVID-19 antigen and rapid flu ordered. Blood cultures x2 and urine culture ordered pending. Patient had empiric ceftriaxone in the ED. Empirically IV Zosyn started. #5. Chronic essential tremors: continue patient home propranolol regimen. #6. Allergic rhinitis: continue patient home fluticasone and nasal allergy regimens. #7. RLS: We will continue patient nightly Mirapex regimen. #8. GERD: Not on regimen, if complaints may consider adding famotidine. #9. Former tobacco use: Encourage continued tobacco cessation. #10. Hyperlipidemia: Not on statin therapy, defer to outpatient. #11. DVT prophylaxis: SCDs, Lovenox. #12. CODE STATUS: Full code. Clinical Impression(s) from Imaging Studies Brain CT 12/10/21 21:02 IMPRESSION: undefined Cervical Spine CT 12/10/21 21:02 IMPRESSION: No acute fracture. Subluxation of the C1 on C2 articular facets measuring up to 4 mm, likely due to head positioning. Chest X-Ray 12/10/21 22:44 IMPRESSION: No acute cardiopulmonary disease. Left upper lobe 10 mm pulmonary nodule, may represent granuloma. Laboratory Results 12/10/21 22:21: WBC 13.7 H, RBC 4.08 L, Hgb 12.3, Hct 36.5 L, MCV 89.5, MCH 30.1, MCHC 33.7, RDW Std Deviation 45.7 H, RDW Coeff of Tiffanie 13.9, Plt Count 283, MPV 9.2, Immature Gran % (Auto) 0.600, Neut % (Auto) 79.5 H, Lymph % (Auto) 7.3 L, [place] % (Auto) 12.5 H, Eos % (Auto) 0.0, Baso % (Auto) 0.1, Absolute Neuts (auto) 10.9 H, Absolute Lymphs (auto) 1.00, Nucleated RBC % 0, Differential Comment SCANNED, Diff Path Review October [facility] 12/10/21 22:21: Sodium 137, Potassium 2.7 L*, Chloride 103, Carbon Dioxide 20.0 L, Anion Gap 14, BUN 26 H, Creatinine 0.84, Estim Creat Clear Calc 48.07, Est GFR (MDRD) Af Amer 84, Est GFR (MDRD) Non-Af 69, BUN/Creatinine Ratio 30.9 H, Glucose 130 H, Calcium 8.7, Total Bilirubin 0.60, AST 133 H, ALT 48, Alkaline Phosphatase 95, Total Creatine Kinase 5736 H, Total Protein 7.2, Albumin 3.2, Globulin 4.0, Albumin/Globulin Ratio 0.8 L 12/10/21 22:21: Magnesium 2.2 12/10/21 23:44: Urine Color Yellow, Urine Clarity Sl. Cloudy, Urine pH 6.0, Ur Specific [place] 1.020, Urine Protein 100 H, Urine Glucose (UA) Normal, Urine Ketones 150 A*, Urine Occult Blood 250 H, Urine Nitrite Negative, Urine Bilirubin Negative, Urine Urobilinogen 1 H, Ur Leukocyte Esterase 100 H, Urine RBC 0-5 SEEN, Urine WBC 50-100 SEEN, Ur Squamous Epith Cells 0 SEEN, Amorphous Sediment 2+, Urine Bacteria 4+, Urine Mucus 0 SEEN 12/11/21 02:48: Procalcitonin 4.19 H 12/11/21 02:48: WBC 13.8 H, RBC 3.71 L, Hgb 11.1 L, Hct 34.1 L, MCV 91.9, MCH 29.9, MCHC 32.6, RDW Std Deviation 47.1 H, RDW Coeff of [place]iffanie 13.9, Plt Count 276, MPV 9.4, Immature Gran % (Auto) 0.600, Neut % (Auto) 78.6 H, Lymph % (Auto) 7.6 L, [place] % (Auto) 13.1 H, Eos % (Auto) 0.0, Baso % (Auto) 0.1, Absolute Neuts (auto) 10.8 H, Absolute Lymphs (auto) 1.05, Nucleated RBC % 0, Diff Path Review October [facility] 12/11/21 02:48: Sodium 138, Potassium 2.9 L, Chloride 107, Carbon Dioxide 22.0, Anion Gap 9, BUN 26 H, Creatinine 0.83, Estim Creat Clear Calc 38.78, Est GFR (MDRD) Af Amer 85, Est GFR (MDRD) Non-Af 70, BUN/Creatinine Ratio 31.4 H, Glucose 135 H, Calcium 7.9 L, Total Bilirubin 0.30, AST 123 H, ALT 45, Alkaline Phosphatase 80, Total Creatine Kinase 4864 H, Total Protein 6.3 L, Albumin 2.8 L , Globulin 3.5, Albumin/Globulin Ratio 0.8 L Charges/Coding Visit Charges Inpatient E&M: 69816 Subs Hosp L2
--- NOTE | 2021-12-11 13:32 | CASEMGMT ---
Social Work SW spoke w/CM, family and pt agreeable to referral to TCU. Referral made, they can take pt and precert started. SW called on Jeb Bullard and let him know. SW let pt know, pt is also agreeable to TCU when ready and precert attained. ELIUD Jay
--- NOTE | 2021-12-11 14:04 | CHAPLAIN ---
Type of Pastoral Visit _x__ Initial Visit ___ Follow-up Visit ___ On-call Visit ___ General Patient Visit ___ Spiritual Assessment ___ Family Conference ___ Bereavement ___ Rapid Response ___ Code Blue ___ Other (describe below) Pastoral Care Referral From _x__ Patient ___ Family ___ Nurse ___ Physician ___ Tugboat Mate ___ Landscape Laborer ___ Other (describe below) Sacrament/Intervention _x__ Active listening ___ Anointing ___ Restorationist ___ Bereavement ___ Communion ___ Shayy exploration ___ _x__ Life review ___ Prayer ___ Reconciliation ___ Sacrament of Sick ___ Supportive presence ___ Wedding ___ Other (describe below) Pastoral Comments patient is slow to speak and rsond to questions; pt is point lay ira too; pt indicates a need for prayer for a new baby grandson that is to be born
[2021-12-11] MEDS: Pramipexole Di-HCl 0.5 MG Tablet PO (20:46)
[2021-12-11] MEDS: Na Biphos/Potassium Phosphate PACKET 1 PACKET PO (20:49)
[2021-12-11] MEDS: Acetaminophen 325 MG Tablet 650 MG PO (20:49)
[2021-12-12 01:59] VITALS: BP 97/52; PULSE 66; RESP 16; TEMP 37; O2SAT 94
[2021-12-12] MEDS: 0.9% Normal Saline 1,000 ML 150 ML IV ×3 (03:19→17:42)
[2021-12-12 05:10] VITALS: BP 112/57; PULSE 63; RESP 16; TEMP 36.8; O2SAT 95
[2021-12-12] MEDS: Propranolol 10 MG Tablet 20 MG PO ×3 (05:10→21:02)
[2021-12-12] MEDS: Na Biphos/Potassium Phosphate PACKET 1 PACKET PO ×3 (05:10→21:08)
[2021-12-12 05:52] LABS: Anion Gap 8 (5-15); BUN 17 mg/dL (7-18); BUN/Creat Ratio 27.8 RATIO (10-20); Calcium,Total 7.7 mg/dL (8.5-10.1); Chloride 109 mmol/L (98-107); Creatinine, Serum 0.61 mg/dL (0.55-1.02); EST Glomerular Filtration Rate 100 mL/min (>60); Est Glom Filt Rate - Afr Amer 121 mL/min (>60); Estimated Creatinine Clearance 38.75 ml/min; Glucose 102 mg/dL (74-106); Magnesium 2.3 mg/dL (1.6-2.6); Phosphorus 1.6 mg/dL (2.5-4.9); Potassium 3.2 mmol/L (3.5-5.1); Sodium Level 138 mmol/L (136-145)
[2021-12-12 07:21] VITALS: O2SAT 94
[2021-12-12 10:07] VITALS: BP 117/64; PULSE 70; RESP 16; TEMP 36.9; O2SAT 97
--- NOTE | 2021-12-12 10:16 | TREXTCAR_ITS ---
Diet Diet Order/Speech Therapy: 12/11/21 01:30 Diet: Regular - General Food consistency:: Regular Liquid Consistency:: Regular/Thin Problem/Diagnosis (1) Fall: Status: Acute Code(s): W19.XXXA - Unspecified fall, initial encounter Plan The patient is an 81 y/o F with multiple comorbidities admitted for fall, rhabdomyolysis lethargy and confusion. Patient has been found down I talked to the patient's son and she last asked about 6 PM a day before admission #1. Mechanical fall with acute rhabdomyolysis: Admitted on the Medr floor. IV fluid normal saline. CPK around 5000 with gradual improvement noted. PT OT and case packer and sealer consult. Baseline ambulates with cane, patient lives alone. Patient has history of fracture of left humerus and hip, chronic back pain, essential tremor fall and osteoporosis. #2. Hypokalemia: Admission K+ 2.7, magnesium 2.2. Serum phosphorus 2.1. Potassium replaced. But repeat potassium still 2.9. BUN 36, creatinine 0.8. Prerenal azotemia. #3. Incidental left upper lobe pulmonary nodule: Chest x-ray with incidental left upper lobe 10 mm pulmonary nodule, possibly granuloma, recommend outpatient continued follow-up. #4. 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 Orientation cues. Treat the underlying disorder. UA shows LE 100, WBC 50?100 cells but nitrite negative. CT head with no acute intracranial findings and CT neck with no acute findings with some subluxation felt secondary to neck positioning only. Mild low-grade fever: Mild leukocytosis with left shift. Procalcitonin is 4.19. Exact focus unclear. COVID-19 antigen and rapid flu ordered. Blood cultures x2 and urine culture ordered pending. Patient had empiric ceftriaxone in the ED. Empirically IV Zosyn started. #5. Chronic essential tremors: continue patient home propranolol regimen. #6. Allergic rhinitis: continue patient home fluticasone and nasal allergy regimens. #7. RLS: We will continue patient nightly Mirapex regimen. #8. GERD: Not on regimen, if complaints may consider adding famotidine. #9. Former tobacco use: Encourage continued tobacco cessation. #10. Hyperlipidemia: Not on statin therapy, defer to outpatient. #11. DVT prophylaxis: SCDs, Lovenox. #12. CODE STATUS: Full code. Clinical Impression(s) from Imaging Studies Brain CT 12/10/21 21:02 IMPRESSION: undefined Cervical Spine CT 12/10/21 21:02 IMPRESSION: No acute fracture. Subluxation of the C1 on C2 articular facets measuring up to 4 mm, likely due to head positioning. Chest X-Ray 12/10/21 22:44 IMPRESSION: No acute cardiopulmonary disease. Left upper lobe 10 mm pulmonary nodule, may represent granuloma. Laboratory Results 12/10/21 22:21: WBC 13.7 H, RBC 4.08 L, Hgb 12.3, Hct 36.5 L, MCV 89.5, MCH 30.1, MCHC 33.7, RDW Std Deviation 45.7 H, RDW Coeff of [place] 13.9, Plt Count 283, MPV 9.2, Immature Gran % (Auto) 0.600, Neut % (Auto) 79.5 H, Lymph % (Auto) 7.3 L, [place] % (Auto) 12.5 H, Eos % (Auto) 0.0, Baso % (Auto) 0.1, Absolute Neuts (auto) 10.9 H, Absolute Lymphs (auto) 1.00, Nucleated RBC % 0, Differential Comment SCANNED, Diff Path Review October12/10/21 22:21: Sodium 137, Potassium 2.7 L*, Chloride 103, Carbon Dioxide 20.0 L, Anion Gap 14, BUN 26 H, Creatinine 0.84, Estim Creat Clear Calc 48.07, Est GFR (MDRD) Af Amer 84, Est GFR (MDRD) Non-Af 69, BUN/Creatinine Ratio 30.9 H, Glucose 130 H, Calcium 8.7, Total Bilirubin 0.60, AST 133 H, ALT 48, Alkaline Phosphatase 95, Total Creatine Kinase 5736 H, Total Protein 7.2, Albumin 3.2, Globulin 4.0, Albumin/Globulin Ratio 0.8 L 12/10/21 22:21: Magnesium 2.2 12/10/21 23:44: Urine Color Yellow, Urine Clarity Sl. Cloudy, Urine pH 6.0, Ur Specific [place] 1.020, Urine Protein 100 H, Urine Glucose (UA) Normal, Urine Ketones 150 A*, Urine Occult Blood 250 H, Urine Nitrite Negative, Urine Bili bhatt Negative, Urine Urobilinogen 1 H, Ur Leukocyte Esterase 100 H, Urine RBC 0-5 SEEN, Urine WBC 50-100 SEEN, Ur Squamous Epith Cells 0 SEEN, Amorphous Sediment 2+, Urine Bacteria 4+, Urine Mucus 0 SEEN 12/11/21 02:48: Procalcitonin 4.19 H 12/11/21 02:48: WBC 13.8 H, RBC 3.71 L, Hgb 11.1 L, Hct 34.1 L, MCV 91.9, MCH 29.9, MCHC 32.6, RDW Std Deviation 47.1 H, RDW Coeff of [place] 13.9, Plt Count 276, MPV 9.4, Immature Gran % (Auto) 0.600, Neut % (Auto) 78.6 H, Lymph % (Auto) 7.6 L, [place] % (Auto) 13.1 H, Eos % (Auto) 0.0, Baso % (Auto) 0.1, Absolute Neuts (auto) 10.8 H, Absolute Lymphs (auto) 1.05, Nucleated RBC % 0, Diff Path Review October12/11/21 02:48: Sodium 138, Potassium 2.9 L, Chloride 107, Carbon Dioxide 22.0, Anion Gap 9, BUN 26 H, Creatinine 0.83, Estim Creat Clear Calc 38.78, Est GFR (MDRD) Af Amer 85, Est GFR (MDRD) Non-Af 70, BUN/Creatinine Ratio 31.4 H, Glucose 135 H, Calcium 7.9 L, Total Bilirubin 0.30, AST 123 H, ALT 45, Alkaline Phosphatase 80, Total Creatine Kinase 4864 H, Total Protein 6.3 L, Albumin 2.8 L , Globulin 3.5, Albumin/Globulin Ratio 0.8 L Allergies/Procedures Done in Hospital Allergies No Known Allergies Allergy (Verified 12/10/21 20:16) Type of Care/Length of Stay Estimated LOS: Convalescent Care Less Than 30 days Type of Care Needed: Skilled Rehab Potential: Good Prognosis: Good Dietary and Speech Recommendations Dietitian Recommendations/Changes: Continue Regular diet and 120mL Ensure Enlive 4x daily. Nursing will obtain new weight once pt is moved back to bed. Discharge Plan Admission Admit Date/Time: 12/11/21 00:24 Attending Provider: Darinel Carlos Primary Care Provider: Lalo Palm Consulting Providers: Karon Nunes Discharge Orders/Prescriptions Prescriptions: No Action calcium citrate 250 mg calcium-vitamin D3 200 unit tablet 250 mg calcium- 200 unit tablet 1 tab PO TID sennosides-docusate sodium 8.6-50 mg tablet 2 tab PO BID PRN triamcinolone acetonide 0.1 % ointment 1 applic topical DAILY Qty: 30 2RF lidocaine 5 % adhesive patch,medicated 1 patch topical DAILY Qty: 30 1RF Rx Instructions: leave on most painful area for up to 12 hrs ipratropium bromide 42 mcg (0.06 %) spray,non-aerosol 2 spray intranasal TID PRN (Reason: allergy symptoms) Qty: 15 1RF Rx Instructions: administer into each nostril pramipexole 0.5 mg tablet 0.5 mg PO QHS Qty: 90 1RF propranolol 20 mg tablet 20 mg PO TID Qty: 180 1RF acetaminophen 500 MG tablet 1,000 mg PO Q8 0RF fluticasone propionate 50 mcg/actuation spray,suspension See Rx Instructions .ROUTE .COMPLEX Qty: 16 1RF Dose Instruction: USE 1 SPRAY IN EACH NOSTRIL ONCE DAILY Rx Instructions: USE 1 SPRAY IN EACH NOSTRIL ONCE DAILY azelastine 137 mcg (0.1 %) aerosol,spray 1 spray INTRANASAL BID Qty: 30 1RF Rx Instructions: administer into each nostril Referrals / Follow Up: Lalo Palm DO [Primary Care Provider] -
[2021-12-12] MEDS: Azelastine HCl NASAL.SRY 1 SPRAY NASAL ×2 (10:28→21:02)
[2021-12-12] MEDS: Fluticasone 0.05% 1 SPRAY NASAL.SRY NASAL (10:32)
[2021-12-12] MEDS: Magnesium Chloride 64 MG Delay Rel.Tablet 128 MG PO ×2 (10:34→21:02)
[2021-12-12] MEDS: Enoxaparin 40 MG/0.4 ML Syringe SC (10:34)
[2021-12-12] MEDS: Lidocaine 5% Patch 1 PATCH TOPICAL (10:34)
--- NOTE | 2021-12-12 11:10 | CASEMGMT ---
Social Work As per physician, pt is ready for discharge today. SW communicated w/Kelly in TCU, no precert has yet been attained from insurance, she will let SW know as soon as she knows. ELIUD Jay
[2021-12-12 11:34] LABS: CPK Total, Creatine Kinase 1557 U/L (26-192)
[2021-12-12] MEDS: Ceftriaxone 1 GM/50 ML BAG IV (11:34)
--- NOTE | 2021-12-12 13:55 | PCM.PN.HOSP ---
Subjective Subjective Follow-up for acute rhabdomyolysis, adult failure to thrive Objective Data Objective Data Vital Signs: Vital Signs Temp Pulse Resp BP Pulse Ox O2 Del Method O2 Flow Rate 98.4 F 70 16 117/64 97 Room Air 3 12/12/21 10:07 12/12/21 10:07 12/12/21 10:07 12/12/21 10:07 12/12/21 10:07 12/12/21 10:07 12/10/21 22:22 Oxygen Flow Rate (L/min) 3 Oxygen Delivery Method Room Air Weight: 139 lb 12.369 oz Body Mass Index (BMI) 16.7 Intake & Output: Intake and Output for Last 24 Hours 12/10/21 12/11/21 12/12/21 23:59 23:59 23:59 Intake Total 3500 / 3500 2150 / 2150 Balance 3500 / 3500 2150 / 2150 Lab / Micro Data Result Diagrams: 12/11/21 02:48 12/12/21 05:19 Labs: Laboratory Results - last 24 hr 12/12/21 05:19: Sodium 138, Potassium 3.2 L, Chloride 109 H, Carbon Dioxide 21.0, Anion Gap 8, BUN 17, Creatinine 0.61, Estim Creat Clear Calc 38.75, Est GFR (MDRD) Af Amer 121, Est GFR (MDRD) Non-Af 100, BUN/Creatinine Ratio 27.8 H, Glucose 102, Calcium 7.7 L, Phosphorus 1.6 L, Magnesium 2.3 12/12/21 05:19: Total Creatine Kinase 1557 H Micro: Microbiology 12/11/21 Unknown Urine Catheter - Catheter Urine Culture - Preliminary Presumptive E. coli 12/11/21 18:26 Nasal Secretion SARS-CoV-2 & FLU Antigen (Rapid) - Final Physical Exam Narrative Physical exam General: Alert, Oriented x3, Cooperative HEENT: Atraumatic, PERRLA, EOMI, Normocephalic, very hard of hearing. Oral: No Gingival or Mucosal Lesions/ Ulcerations Neck: Supple, No JVD, Negative Carotid Bruits Lungs: Air entry diminished in bilateral lung bases. No crepitation/rhonchi Cardiovascular: Regular rate, Regular Rhythm, Normal S1, Normal S2, No murmurs Abdomen: Bowel Sounds Present, Soft, Non Tender, Non-Distended : No renal angle tenderness. No suprapubic tenderness. Extremities: No edema, Capillary Refill Less than 3 Seconds Skin: No rashes, No breakdown Musculoskeletal: No specific point tenderness of her knees or hip joints or muscle tenderness. ROM severely restricted. 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 Neurological: Cranial nerves II-XII grossly intact, DTR 2+/4, Neuro grossly intact Psych/Mental Status: Flat affect. Assessment & Plan Assessment/Plan (1) Fall: PLAN: Plan The patient is an 81 y/o F with multiple comorbidities admitted for fall, rhabdomyolysis lethargy and confusion. Patient has been found down I talked to the patient's son and she last asked about 6 PM a day before admission #1. Mechanical fall with acute rhabdomyolysis: Admitted on the MedSur floor. IV fluid normal saline. CPK around 5000 with gradual improvement noted. PT OT and child welfare caseworker consult. Baseline ambulates with cane, patient lives alone. Patient has history of fracture of left humerus and hip, chronic back pain, essential tremor fall and osteoporosis. 12/12: Continue PT and OT and SNF. Pre-CERT pending. #2. Hypokalemia: Admission K+ 2.7, magnesium 2.2. Serum phosphorus 2.1. Potassium replaced. But repeat potassium still 2.9. BUN 36, creatinine 0.8. Prerenal azotemia. 12/12: Patient is still hypokalemic and hypophosphatemic. Electrolytes replacement ordered. #3. Incidental left upper lobe pulmonary nodule: Chest x-ray with incidental left upper lobe 10 mm pulmonary nodule, possibly granuloma, recommend outpatient continued follow-up. #4. 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 Orientation cues. Treat the underlying disorder. UA shows LE 100, WBC 50?100 cells but nitrite negative. CT head with no acute intracranial findings and CT neck with no acute findings with some subluxation felt secondary to neck positioning only. Mild low-grade fever: Mild leukocytosis with left shift. Procalcitonin is 4.19. Exact focus unclear. COVID-19 antigen and rapid flu ordered. Blood cultures x2 and urine culture ordered pending. Patient had empiric ceftriaxone in the ED. Empirically IV Zosyn started. #5. Chronic essential tremors: continue patient home propranolol regimen. #6. Allergic rhinitis: continue patient home fluticasone and nasal allergy regimens. #7. RLS: We will continue patient nightly Mirapex regimen. #8. GERD: Not on regimen, if complaints may consider adding famotidine. #9. Former tobacco use: Encourage continued tobacco cessation. #10. Hyperlipidemia: Not on statin therapy, defer to outpatient. #11. DVT prophylaxis: SCDs, Lovenox. #12. CODE STATUS: Full code. Clinical Impression(s) from Imaging Studies Brain CT 12/10/21 21:02 IMPRESSION: undefined Cervical Spine CT 12/10/21 21:02 IMPRESSION: No acute fracture. Subluxation of the C1 on C2 articular facets measuring up to 4 mm, likely due to head positioning. Chest X-Ray 12/10/21 22:44 IMPRESSION: No acute cardiopulmonary disease. Left upper lobe 10 mm pulmonary nodule, may represent granuloma. Charges/Coding Visit Charges Inpatient E&M: 74776 Subs Hosp L2
[2021-12-12 13:59] VITALS: BP 112/64; PULSE 64; RESP 16; TEMP 37; O2SAT 94
[2021-12-12] MEDS: Acetaminophen 325 MG Tablet 650 MG PO (17:42)
[2021-12-12 20:20] VITALS: BP 118/62; PULSE 62; RESP 16; TEMP 36.6; O2SAT 94
[2021-12-12] MEDS: Pramipexole Di-HCl 0.5 MG Tablet PO (21:02)
[2021-12-12] MEDS: guaiFENesin 10 ML UDC (200MG/10ML) PO (21:02)
[2021-12-13] MEDS: 0.9% Normal Saline 1,000 ML 150 ML IV ×2 (00:37→07:27)
[2021-12-13 02:20] VITALS: BP 140/73; PULSE 78; RESP 16; TEMP 37.2; O2SAT 95
[2021-12-13 05:16] LABS: Anion Gap 8 (5-15); BUN 8 mg/dL (7-18); BUN/Creat Ratio 14.4 RATIO (10-20); Calcium,Total 7.6 mg/dL (8.5-10.1); Chloride 109 mmol/L (98-107); Creatinine, Serum 0.56 mg/dL (0.55-1.02); EST Glomerular Filtration Rate 111 mL/min (>60); Est Glom Filt Rate - Afr Amer 135 mL/min (>60); Estimated Creatinine Clearance 38.75 ml/min; Glucose 103 mg/dL (74-106); Potassium 3.4 mmol/L (3.5-5.1); Sodium Level 138 mmol/L (136-145)
[2021-12-13] MEDS: guaiFENesin 10 ML UDC (200MG/10ML) PO (05:30)
[2021-12-13] MEDS: Propranolol 10 MG Tablet 20 MG PO ×2 (05:30→15:19)
[2021-12-13] MEDS: Na Biphos/Potassium Phosphate PACKET 1 PACKET PO ×2 (05:30→15:19)
[2021-12-13 08:35] VITALS: O2SAT 96
[2021-12-13 09:34] VITALS: BP 116/67; PULSE 68; RESP 18; TEMP 37.1; O2SAT 96
[2021-12-13] MEDS: Magnesium Chloride 64 MG Delay Rel.Tablet 128 MG PO (09:41)
[2021-12-13] MEDS: Fluticasone 0.05% 1 SPRAY NASAL.SRY NASAL (09:41)
[2021-12-13] MEDS: Enoxaparin 40 MG/0.4 ML Syringe SC (09:41)
[2021-12-13] MEDS: Azelastine HCl NASAL.SRY 1 SPRAY NASAL (09:41)
[2021-12-13] MEDS: Lidocaine 5% Patch 1 PATCH TOPICAL (09:41)
[2021-12-13] MEDS: Ceftriaxone 1 GM/50 ML BAG IV (09:42)
--- NOTE | 2021-12-13 10:00 | TREXTCAR_ITS ---
Diet Diet Order/Speech Therapy: 12/11/21 01:30 Diet: Regular - General Food consistency:: Regular Liquid Consistency:: Regular/Thin Routine Orders/Code Status Suppository Type: Dulcolax 10mg Suppository Frequency: Daily PRN Routine Lab Work: BMP (with serum Mg and Phosphorus in 3 days. Pt on neutra- phos) Code Status: Full Code Therapies Weight Bearing: Weight bearing as tolerated Extremity Affected:: Bilateral Lower Physical Therapy: Eval and Treat Occupational Therapy: Eval and Treat Speech Therapy: Eval and Treat Problem/Diagnosis (1) Fall: Status: Acute Code(s): W19.XXXA - Unspecified fall, initial encounter Allergies/Procedures Done in Hospital Allergies No Known Allergies Allergy (Verified 12/10/21 20:16) Type of Care/Length of Stay Estimated LOS: Convalescent Care Less Than 30 days Type of Care Needed: Skilled Rehab Potential: Good Prognosis: Good Additional Orders/Day of Discharge Day of Discharge: 12/13/21 Dietary and Speech Recommendations Dietitian Recommendations/Changes: Continue Regular diet and 120mL Ensure Enlive 4x daily. Nursing will obtain new weight once pt is moved back to bed. Discharge Plan Admission Admit Date/Time: 12/11/21 00:24 Primary Reason for Your Visit: ACUTE Rhabdomyolysis Attending Provider: Darinel Carlos Primary Care Provider: Lalo Palm Consulting Providers: Karon Nunes Discharge Orders/Prescriptions Prescriptions: New ciprofloxacin HCl [Cipro] 500 mg tablet 500 mg PO BID Qty: 6 0RF R-Imun-Zxrprdx 250 mg tablet 2 tab PO TID Qty: 15 0RF Continued calcium citrate 250 mg calcium-vitamin D3 200 unit tablet 250 mg calcium- 200 unit tablet 1 tab PO TID sennosides-docusate sodium 8.6-50 mg tablet 2 tab PO BID PRN triamcinolone acetonide 0.1 % ointment 1 applic topical DAILY Qty: 30 2RF lidocaine 5 % adhesive patch,medicated 1 patch topical DAILY Qty: 30 1RF Rx Instructions: leave on most painful area for up to 12 hrs ipratropium bromide 42 mcg (0.06 %) spray,non-aerosol 2 spray intranasal TID PRN (Reason: allergy symptoms) Qty: 15 1RF Rx Instructions: administer into each nostril pramipexole 0.5 mg tablet 0.5 mg PO QHS Qty: 90 1RF propranolol 20 mg tablet 20 mg PO TID Qty: 180 1RF acetaminophen 500 MG tablet 1,000 mg PO Q8 0RF fluticasone propionate 50 mcg/actuation spray,suspension See Rx Instructions .ROUTE .COMPLEX Qty: 16 1RF Dose Instruction: USE 1 SPRAY IN EACH NOSTRIL ONCE DAILY Rx Instructions: USE 1 SPRAY IN EACH NOSTRIL ONCE DAILY azelastine 137 mcg (0.1 %) aerosol,spray 1 spray INTRANASAL BID Qty: 30 1RF Rx Instructions: administer into each nostril Referrals / Follow Up: Lalo Palm DO [Primary Care Provider] - Within 2 Weeks Disposition Disposition (needs filled in before D/C Order can be placed): Senior Living Facility
--- NOTE | 2021-12-13 10:00 | CASEMGMT ---
Social Work Pt is approved for TCU through her insurance as per Kelly in TCU. SW let pt and pt's son in room know, both in agreement. Pt to TCU today. ELIUD Jay
--- NOTE | 2021-12-13 10:50 | DS.PCM_ITS ---
Providers Date of Admission: 12/11/21 Date of Discharge: 12/13/21 Primary Care Physician: Dr. Lalo Palm DO Reason For Visit: fall, RHABDOMYOLYSIS, ENCEPHALOPATHY Diagnosis Discharge Diagnosis (1) Fall: Status: Acute Code(s): W19.XXXA - Unspecified fall, initial encounter Medications at Discharge Home Medications calcium citrate 250 mg calcium-vitamin D3 5 mcg (200 unit) tablet 1 tab PO TID Supplement 03/23/19 sennosides 8.6 mg-docusate sodium 50 mg tablet 2 tab PO BID PRN Constipation 04/27/19 ipratropium bromide 42 mcg (0.06 %) nasal spray 2 spray intranasal TID PRN allergy symptoms #15 mL 05/08/21 acetaminophen 500 mg tablet 1,000 mg PO Q8 Pain 1-10 12/13/21 azelastine 137 mcg (0.1 %) nasal spray aerosol 1 spray intranasal BID Allergies 12/13/21 ciprofloxacin HCl 500 mg tablet (Cipro) 500 mg PO BID Antibiotic 12/13/21 fluticasone propionate 50 mcg/actuation nasal spray,suspension See Rx Instructions .Route .COMPLEX Allergies 12/13/21 lidocaine 5 % topical patch 1 patch topical DAILY Pain 12/13/21 pramipexole 0.5 mg tablet 0.5 mg PO QHS Sleep 12/13/21 propranolol 20 mg tablet 20 mg PO TID BP 12/13/21 sodium di- and monophosphate-potassium phos monobasic 250 mg tablet (X-[id number]) 2 tab PO TID Supplement 12/13/21 triamcinolone acetonide 0.1 % topical ointment 1 applic topical DAILY Steroid 12/13/21 Hospital Course Summary of Care Provided Hospital Course: The patient is an 81 y/o F with multiple comorbidities admitted for fall, rhabdomyolysis lethargy and confusion. Patient has been found down I talked to the patient's son and she last asked about 6 PM a day before admission #1. Mechanical fall with acute rhabdomyolysis: Admitted on the MedSur floor. IV fluid normal saline. CPK around 5000 with gradual improvement noted. PT OT and upper caser consult. Baseline ambulates with cane, patient lives alone. Patient has history of fracture of left humerus and hip, chronic back pain, essential tremor fall and osteoporosis. 12/12: Continue PT and OT and SNF. 12/13: CK decreased to 839. Mild hypokalemia, potassium replaced. Patient discharged on Neutra-Phos #2. Hypokalemia: Admission K+ 2.7, magnesium 2.2. Serum phosphorus 2.1. Potas sium replaced. But repeat potassium still 2.9. BUN 36, creatinine 0.8. Prerenal azotemia. 12/12: Patient is still hypokalemic and hypophosphatemic. #3. Incidental left upper lobe pulmonary nodule: Chest x-ray with incidental left upper lobe 10 mm pulmonary nodule, possibly granuloma, recommend outpatient continued follow-up. #4. Acute encephalopathy most probably metabolic and infectious due to UTI on Chronic Underlying suspected dementia without behavioral disturbance history: Patient was noted to be lethargic, confused. Orientation cues. Treat the underlying disorder. UA shows LE 100, WBC 50?100 cells but nitrite negative. CT head with no acute intracranial findings and CT neck with no acute findings with some subluxation felt secondary to neck positioning only. E. coli, ESBL negative cystitis: Mild leukocytosis with left shift. Procalcitonin is 4.19. Rapid COVID-19 antigen and rapid flu antigen negative. Patient had empiric ceftriaxone in the ED. blood cultures x2 negative for more than 48 hours. Urine culture grew E. coli. 12/14 patient discharged on Cipro. #5. Chronic essential tremors: continue patient home propranolol regimen. #6. Allergic rhinitis: continue patient home fluticasone and nasal allergy regimens. #7. RLS: We will continue patient nightly Mirapex regimen. #8. GERD: Not on regimen, if complaints may consider adding famotidine. #9. Former tobacco use: Encourage continued tobacco cessation. #10. Hyperlipidemia: Not on statin therapy, defer to outpatient. #11. DVT prophylaxis: SCDs, Lovenox. #12. CODE STATUS: Full code. Discharge medication reconciliation done. Discharge follow-up instructions completed. Discharge process discussed with the patient and all questions were answered to patient's satisfaction. Discharged to SNF Total time spent, exact 35 minutes on discharge meds reconciliation, examination, coordination of care with nurses and ancillary staff, review of imaging and blood test and discussion with the patient on follow-up instructions. Clinical Impression(s) from Imaging Studies Brain CT 12/10/21 21:02 IMPRESSION: undefined Cervical Spine CT 12/10/21 21:02 IMPRESSION: No acute fracture. Subluxation of the C1 on C2 articular facets measuring up to 4 mm, likely due to head positioning. Chest X-Ray 12/10/21 22:44 IMPRESSION: No acute cardiopulmonary disease. Left upper lobe 10 mm pulmonary nodule, may represent granuloma. Physical Exam Narrative Patient was alert oriented x3 and cooperative in the morning and then afternoon she was mildly confused incomprehensible talking irrelevant, disoriented. In the late afternoon when the patient came patient was feeling very sorry and regretful and is more calm. Patient discharged to SNF General: Alert, Oriented x3, Cooperative HEENT: Atraumatic, PERRLA, EOMI, Normocephalic, very hard of hearing. Oral: No Gingival or Mucosal Lesions/ Ulcerations Neck: Supple, No JVD, Negative Carotid Bruits Lungs:? Air entry diminished in bilateral lung bases.? No crepitation/rhonchi Cardiovascular: Regular rate, Regular Rhythm, Normal S1, Normal S2, No murmurs Abdomen: Bowel Sounds Present, Soft, Non Tender, Non-Distended : No renal angle tenderness.? No suprapubic tenderness. Extremities: No edema, Capillary Refill Less than 3 Seconds Skin: No rashes, No breakdown Musculoskeletal: No specific point tenderness of her knees or hip joints or muscle tenderness.? ROM severely restricted.? 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 Neurological: Cranial nerves II-XII grossly intact, DTR? 2+/4, Neuro grossly intact Psych/Mental Status: Flat affect. Weight / BMI Weight Weight: 139 lb 12.369 oz Body Mass Index (BMI) 16.7 ABG / Lab / Microbiology Data Result Diagrams: 12/11/21 02:48 12/13/21 04:42 Laboratory: Laboratory Results - last 24 hr 12/12/21 05:19: Total Creatine Kinase 1557 H 12/13/21 04:42: Sodium 138, Potassium 3.4 L, Chloride 109 H, Carbon Dioxide 21.0, Anion Gap 8, BUN 8, Creatinine 0.56, Estim Creat Clear Calc 38.75, Est GFR (MDRD) Af Amer 135, Est GFR (MDRD) Non-Af 111, BUN/Creatinine Ratio 14.4, Glucose 103, Calcium 7.6 L Microbiology: Microbiology 12/11/21 Unknown Urine Catheter - Catheter Urine Culture - Final Presumptive E. coli 12/11/21 18:26 Nasal Secretion SARS-CoV-2 & FLU Antigen (Rapid) - Final Meaningful Use Info Meaningful Use Diagnoses (Choose all that apply): None applicable Discharge Plan Admission Admit Date/Time: 12/11/21 00:24 Primary Reason for Your Visit: ACUTE Rhabdomyolysis Attending Provider: Darinel Carlos Primary Care Provider: Lalo Palm Consulting Providers: Karon Nunes Discharge Orders/Prescriptions Prescriptions: Continued calcium citrate 250 mg calcium-vitamin D3 200 unit tablet 250 mg calcium- 200 unit tablet 1 tab PO TID sennosides-docusate sodium 8.6-50 mg tablet 2 tab PO BID PRN (Reason: Constipation) ipratropium bromide 42 mcg (0.06 %) spray,non-aerosol 2 spray intranasal TID PRN (Reason: allergy symptoms) Qty: 15 1RF Rx Instructions: administer into each nostril No Action ciprofloxacin HCl [Cipro] 500 mg tablet 500 mg PO BID acetaminophen 500 MG tablet 1,000 mg PO Q8 pramipexole 0.5 mg tablet 0.5 mg PO QHS triamcinolone acetonide 0.1 % ointment 1 applic topical DAILY lidocaine 5 % adhesive patch,medicated 1 patch topical DAILY Rx Instructions: leave on most painful area for up to 12 hrs C-Ckkd-Ywmlabh 250 mg tablet 2 tab PO TID azelastine 137 mcg (0.1 %) aerosol,spray 1 spray INTRANASAL BID Rx Instructions: administer into each nostril propranolol 20 mg tablet 20 mg PO TID fluticasone propionate 50 mcg/actuation spray,suspension See Rx Instructions .ROUTE .COMPLEX Rx Instructions: USE 1 SPRAY IN EACH NOSTRIL ONCE DAILY Referrals / Follow Up: Lalo Palm DO [Primary Care Provider] - Within 2 Weeks Disposition Disposition (needs filled in before D/C Order can be placed): [facility] Charges/Coding Visit Charges Inpatient E&M: 28218 Disch Hosp
--- NOTE | 2021-12-13 11:09 | CASEMGMT ---
Addendum entered by Mayela Payne 12/13/21 11:49: Social Work Pt is going to TCU skilled. ELIUD Jay Original Note: Social Work SW faxed discharge instructions to TCU, no further needs. MAYDA JayS
--- NOTE | 2021-12-13 13:51 | PCM.PN.HOSP ---
Subjective Subjective Follow-up for acute rhabdomyolysis. Objective Data Objective Data Vital Signs: Vital Signs Temp Pulse Resp BP Pulse Ox O2 Del Method O2 Flow Rate 98.7 F 68 18 116/67 96 Room Air 3 12/13/21 09:34 12/13/21 09:34 12/13/21 09:34 12/13/21 09:34 12/13/21 09:34 12/13/21 09:34 12/10/21 22:22 Oxygen Flow Rate (L/min) 3 Oxygen Delivery Method Room Air Weight: 139 lb 12.369 oz Body Mass Index (BMI) 16.7 Intake & Output: Intake and Output for Last 24 Hours 12/11/21 12/12/21 12/13/21 23:59 23:59 23:59 Intake Total 3500 / 3500 3663.3333 / 3663.3333 2049 Balance 3500 / 3500 3663.3333 / 3663.3333 2049 Lab / Micro Data Result Diagrams: 12/11/21 02:48 12/13/21 04:42 Labs: Laboratory Results - last 24 hr 12/13/21 04:42: Sodium 138, Potassium 3.4 L, Chloride 109 H, Carbon Dioxide 21.0, Anion Gap 8, BUN 8, Creatinine 0.56, Estim Creat Clear Calc 38.75, Est GFR (MDRD) Af Amer 135, Est GFR (MDRD) Non-Af 111, BUN/Creatinine Ratio 14.4, Glucose 103, Calcium 7.6 L Micro: Microbiology 12/13/21 10:25 Nasal Secretion SARS-CoV-2 Antigen (Rapid) - Final 12/11/21 Unknown Urine Catheter - Catheter Urine Culture - Final Presumptive E. coli 12/11/21 18:26 Nasal Secretion SARS-CoV-2 & FLU Antigen (Rapid) - Final Physical Exam Narrative Physical exam General: Alert, Oriented x3, Cooperative HEENT: Atraumatic, PERRLA, EOMI, Normocephalic, very hard of hearing. Oral: No Gingival or Mucosal Lesions/ Ulcerations Neck: Supple, No JVD, Negative Carotid Bruits Lungs: Air entry diminished in bilateral lung bases. No crepitation/rhonchi Cardiovascular: Regular rate, Regular Rhythm, Normal S1, Normal S2, No murmurs Abdomen: Bowel Sounds Present, Soft, Non Tender, Non-Distended : No renal angle tenderness. No suprapubic tenderness. Extremities: No edema, Capillary Refill Less than 3 Seconds Skin: No rashes, No breakdown Musculoskeletal: No specific point tenderness of her knees or hip joints or muscle tenderness. ROM severely restricted. 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 Neurological: Cranial nerves II-XII grossly intact, DTR 2+/4, Neuro grossly intact Psych/Mental Status: Flat affect. When seen afternoon patient was mildly confused, incomprehensible, talking irrelevant, disoriented. Assessment & Plan Assessment/Plan (1) Fall: PLAN: Plan The patient is an 81 y/o F with multiple comorbidities admitted for fall, rhabdomyolysis lethargy and confusion. Patient has been found down I talked to the patient's son and she last asked about 6 PM a day before admission #1. Mechanical fall with acute rhabdomyolysis: Admitted [facility] floor. IV fluid normal saline. CPK around 5000 with gradual improvement noted. PT OT and case management director consult. Baseline ambulates with cane, patient lives alone. Patient has history of fracture of left humerus and hip, chronic back pain, essential tremor fall and osteoporosis. 12/12: Continue PT and OT and SNF. Pre-CERT pending. #2. Hypokalemia: Admission K+ 2.7, magnesium 2.2. Serum phosphorus 2.1. Potassium replaced. But repeat potassium still 2.9. BUN 36, creatinine 0.8. Prerenal azotemia. 12/12: Patient is still hypokalemic and hypophosphatemic. 12/13: Mild hypokalemia, patient on Neutra-Phos. #3. Incidental left upper lobe pulmonary nodule: Chest x-ray with incidental left upper lobe 10 mm pulmonary nodule, possibly granuloma, recommend outpatient continued follow-up. #4. 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 Orientation cues. Treat the underlying disorder. UA shows LE 100, WBC 50?100 cells but nitrite negative. CT head with no acute intracranial findings and CT neck with no acute findings with some subluxation felt secondary to neck positioning only. Mild low-grade fever: Mild leukocytosis with left shift. Procalcitonin is 4.19. Exact focus unclear. COVID-19 antigen and rapid flu ordered. Blood cultures x2 and urine culture ordered pending. Patient had empiric ceftriaxone in the ED. Empirically IV Zosyn started. 12/13: Fluctuating confusion and disorientation. Orientation cues. Discussed with the nursing staff. Patient's son is coming and if patient is, can be discharged to TCU. #5. Chronic essential tremors: continue patient home propranolol regimen. #6. Allergic rhinitis: continue patient home fluticasone and nasal allergy regimens. #7. RLS: We will continue patient nightly Mirapex regimen. #8. GERD: Not on regimen, if complaints may consider adding famotidine. #9. Former tobacco use: Encourage continued tobacco cessation. #10. Hyperlipidemia: Not on statin therapy, defer to outpatient. #11. DVT prophylaxis: SCDs, Lovenox. #12. CODE STATUS: Full code. Clinical Impression(s) from Imaging Studies Brain CT 12/10/21 21:02 IMPRESSION: undefined Cervical Spine CT 12/10/21 21:02 IMPRESSION: No acute fracture. Subluxation of the C1 on C2 articular facets measuring up to 4 mm, likely due to head positioning. Chest X-Ray 12/10/21 22:44 IMPRESSION: No acute cardiopulmonary disease. Left upper lobe 10 mm pulmonary nodule, may represent granuloma. Charges/Coding Visit Charges Inpatient E&M: 10493 Subs Hosp L2
--- NOTE | 2021-12-13 14:04 | NURSING ---
pt remains confused agitated. son Kwesi arrived working with patient/staff to ambulate back to room.
[2021-12-13 14:50] LABS: CPK Total, Creatine Kinase 839 U/L (26-192)
[2021-12-13 15:17] VITALS: BP 142/74; PULSE 68; RESP 18; TEMP 36.6; O2SAT 98
--- NOTE | 2021-12-13 15:32 | NURSING ---
Report called to Laine in TCU
== END 2021-12-13 15:41 | disposition skilled nursing facility (03) | DRG 558 ==
LOC: ED 12-11 00:16 → MS3 12-11 00:39
PROVIDERS: Admitting Provider Family Medicine; Emergency Provider Emergency Medicine; PCP Family Medicine; Visit Provider Internal Medicine
DX: M62.82 Rhabdomyolysis (principal); F03.91 Unspecified dementia, unspecified severity, with behavioral disturbance; N39.0 Urinary tract infection, site not specified; Z68.1 Body mass index [BMI] 19.9 or less, adult; E83.39 Other disorders of phosphorus metabolism; K21.9 Gastro-esophageal reflux disease without esophagitis; E78.5 Hyperlipidemia, unspecified; E87.6 Hypokalemia; E86.0 Dehydration; G25.0 Essential tremor; G25.81 Restless legs syndrome; W19.XXXA Unspecified fall, initial encounter; J30.9 Allergic rhinitis, unspecified; M16.0 Bilateral primary osteoarthritis of hip; M17.0 Bilateral primary osteoarthritis of knee; R62.7 Adult failure to thrive; G89.29 Other chronic pain; M54.50 Low back pain, unspecified; M81.0 Age-related osteoporosis without current pathological fracture; Z79.899 Other long term (current) drug therapy; Z87.891 Personal history of nicotine dependence; Y92.003 Bedroom of unspecified non-institutional (private) residence as the place of occurrence of the external cause; R91.1 Solitary pulmonary nodule; B96.20 Unspecified Escherichia coli [E. coli] as the cause of diseases classified elsewhere
CPT/HCPCS: 36415; 70450; 71045; 72125; 80048; 80053; 81001; 82550; 83735; 84100; 84145; 85025; 87040; 87086; 87088; 87186; 87426; 87428; 93005; 97162; 97167; 97530; 97802; 99251; 99285; J7030; J7040; P9612; G0463

== ENCOUNTER 2021-12-13 15:50 | Inpatient (IN) | payer MEDICARE, SELFPAY ==
[2021-12-13 16:09] VITALS: BP 127/79; PULSE 67; RESP 16; TEMP 36.4; O2SAT 92; BMI 23.3
[2021-12-13] MEDS: Calcium Carb/Vitamin D 1 TABLET Tablet PO (18:24)
[2021-12-13] MEDS: Azelastine HCl NASAL.SRY 1 SPRAY NASAL (18:24)
[2021-12-13] MEDS: Ciprofloxacin 500 MG Tablet PO (18:25)
[2021-12-13 19:45] VITALS: PULSE 71; RESP 16; O2SAT 94
[2021-12-13] MEDS: Propranolol 10 MG Tablet 20 MG PO (21:06)
[2021-12-13] MEDS: Na Biphos/Potassium Phosphate PACKET 1 PACKET PO (21:07)
[2021-12-13] MEDS: Pramipexole Di-HCl 0.5 MG Tablet PO (21:07)
--- NOTE | 2021-12-13 21:18 | NURSING ---
Addendum entered by Sade Mcpherson 12/13/21 22:52: Patient continues to be restless,won't stay in bed, wandering the halls, difficult to re-direct. Updated Dr. Pang, verbal order for 0.5mg ativan PO. If patient refuses to take may do 0.5mg IM. Original Note: Patient has been confused, found wandering in hallway and at nurse's station a few times. Very hard to re-direct d/t her being [place]. She thinks she had her PM meds previously and won't take them all even with RN explaining multiple times that she hasn't had them. Refused tylenol and second inderal tablet. Refuses full skin assessment at this time, very polite but refusing out of modesty saying oh honey no, don't look at that. Will assess as able during the shift. She did allow RN to listen to her heart/lungs/bowels.
[2021-12-13] MEDS: LORazepam 0.5 MG Tablet PO (23:25)
[2021-12-14] MEDS: Azelastine HCl NASAL.SRY 1 SPRAY NASAL ×2 (04:44→18:11)
[2021-12-14] MEDS: Ciprofloxacin 500 MG Tablet PO ×2 (04:45→18:11)
[2021-12-14] MEDS: Na Biphos/Potassium Phosphate PACKET 1 PACKET PO ×3 (04:48→21:39)
[2021-12-14] MEDS: Lidocaine 5% Patch 1 PATCH TOPICAL (04:48)
[2021-12-14] MEDS: Acetaminophen 500 MG Tablet 1000 MG PO ×3 (04:50→21:38)
[2021-12-14] MEDS: Propranolol 10 MG Tablet 20 MG PO ×3 (04:54→21:41)
[2021-12-14] MEDS: Fluticasone 0.05% 1 SPRAY NASAL.SRY NASAL (04:57)
[2021-12-14 04:58] VITALS: BP 141/73; PULSE 89
[2021-12-14 05:28] LABS: Absolute Lymphocyte Count 1.39 X10^3/uL (0.83-4.51); Absolute Neutrophil Count 5.5 X10^3/uL (2.0-7.7); Basophil# 0.04 X10^3/uL; Basophil% 0.5 % (0-1); Eosinophil# 0.11 X10^3/uL; Eosinophils% 1.4 % (0-5); Hematocrit 36.2 % (37-47); Hemoglobin 11.4 g/dL (12.0-15.0); Lymphocyte # 1.39 X10^3/ul (0.83-4.51); Mean Corp Hgb Conc 31.5 g/dL (32-36); Mean Corpuscular Hgb 29.4 pg (27.0-32.0); Mean Corpuscular Volume 93.3 fL (81-99); Mean Platelet Vol. 9.3 fl (6.2-12.0); Monocyte# 0.58 X10^3/uL; Monocyte% 7.5 % (0-10); NRBC Flagged by Analyzer 0 % (0-5); Neutrophil # 5.49 X10^3/uL (2.7-7.7); Platelet Count 354 K/mm3 (150-450); RBC Distribution Width CV 14.6 % (11.6-14.6); RBC Distribution Width SD 50.4 fl (35.1-43.9); Red Blood Count 3.88 M/mm3 (4.2-5.4); White Blood Count 7.7 K/mm3 (4.4-11.0)
[2021-12-14 06:09] LABS: Anion Gap 8 (5-15); BUN 9 mg/dL (7-18); BUN/Creat Ratio 13.4 RATIO (10-20); Chloride 107 mmol/L (98-107); Creatinine, Serum 0.67 mg/dL (0.55-1.02); EST Glomerular Filtration Rate 90 mL/min (>60); Est Glom Filt Rate - Afr Amer 109 mL/min (>60); Estimated Creatinine Clearance 38.75 ml/min; Glucose 139 mg/dL (74-106); Phosphorus 3.2 mg/dL (2.5-4.9); Potassium 3.1 mmol/L (3.5-5.1); Sodium Level 139 mmol/L (136-145)
[2021-12-14] MEDS: Calcium Carb/Vitamin D 1 TABLET Tablet PO ×3 (08:51→18:11)
--- NOTE | 2021-12-14 09:46 | NURSING ---
Pt out in hallway suppose to be using walker and had no device, taking herself to BR, wandering in room without assistance. Educated on importance of calling for assist when getting up to use BR or ambulating. pt is in Quarantine as well d/t not being fully vaccinated. Son at side and spoke with therapy about his concerns for falling, asking about alarm. notified Saniya health and safety manager. ok to apply alarm d/t very high risk of falling d/t not following instructions to call for assist. staff have been in pts room very frequently this AM.
[2021-12-14] MEDS: Tuberculin,Purif.prot.deriv. 50 TU/ML Vial 0.1 ML ID (11:26)
--- NOTE | 2021-12-14 11:51 | NURSING ---
dr hardin updated on K+ 5.4, new order to administer kayexalate 30gm and recheck labs on thursday.
--- NOTE | 2021-12-14 11:58 | HP.PCM_ITS ---
HPI - General General Date of Admission: 12/13/21 Date of Service: 12/16/21 Chief Complaint: Here for rehab. HPI Narrative 12/10/2021 SAPNA GASCA, is a 81 Female who presents to [facility] Emergency Department with fall. 12/10/2021 EKG normal sinus rhythm, septal infarct, age undetermined, nonspecific ST-T wave abnormality. Found down at home in bedroom, fell out of bed and could not get up Baseline, she walks with cane. Confused, CT head negative, CT cervical spine negative. Chest X-ray negative, WBC 13.7, K 2.7, CPK 5736. Normal saline IV given, potassium replaced. UA consistent with UTI, urine culture sent, Rocephin given. 12/11/2021 Admit to Hospital. IV fluids, monitor CPK for rhabdomyolysis. Consider dementia diagnosis with encephalopathy. 12/11/2021 Fever 100.8. CPK improving, K 2.9, continue to replace. 12/12/2021 PT/OT for SNF. Replace potassium, phosphorous. Zosyn IV for urinary tract infection. 12/13/2021 Neutra-Phos for repletion 12/13/2021 Urine culture growing > 100,000 pansensitive E. Coli. 12/13/2021 Admit to TCU with debiliy, here for rehabilitation, strengthening, prior to discharge home alone. [facility] Medical History Acid reflux Anemia Anxiety Chronic low back pain Chronic pain Fatigue Former smoker Fracture of left humerus History of ovarian cyst History of wrist fracture Hyperlipemia Hypertension Osteoporosis Post-nasal drainage Wears hearing aid in both ears Home Medications calcium citrate 250 mg calcium-vitamin D3 5 mcg (200 unit) tablet 1 tab PO TID Supplement 03/23/19 [History Last Taken Unknown] sennosides 8.6 mg-docusate sodium 50 mg tablet 2 tab PO BID PRN Constipation 04/27/19 [History Last Taken Unknown] ipratropium bromide 42 mcg (0.06 %) nasal spray 2 spray intranasal TID PRN allergy symptoms #15 mL 05/08/21 [Rx Last Taken Unknown] acetaminophen 500 mg tablet 1,000 mg PO Q8 Pain 1-10 12/13/21 [History Last Taken Unknown] azelastine 137 mcg (0.1 %) nasal spray aerosol 1 spray intranasal BID Allergies 12/13/21 [History Last Taken Unknown] ciprofloxacin HCl 500 mg tablet (Cipro) 500 mg PO BID Antibiotic 12/13/21 [History Last Taken Unknown] fluticasone propionate 50 mcg/actuation nasal spray,suspension See Rx Instructions .Route .COMPLEX Allergies 12/13/21 [History Last Taken Unknown] lidocaine 5 % topical patch 1 patch topical DAILY Pain 12/13/21 [History Last Taken Unknown] pramipexole 0.5 mg tablet 0.5 mg PO QHS Sleep 12/13/21 [History Last Taken Unknown] propranolol 20 mg tablet 20 mg PO TID BP 12/13/21 [History Last Taken Unknown] sodium di- and monophosphate-potassium phos monobasic 250 mg tablet ([id number]) 2 tab PO TID Supplement 12/13/21 [History Last Taken Unknown] triamcinolone acetonide 0.1 % topical ointment 1 applic topical DAILY Steroid 12/13/21 [History Last Taken Unknown] Allergy/AdvReac Type Severity Reaction Status Date / Time No Known Allergies Allergy Verified 12/10/21 20:16 Family History Grandmother Colon cancer Father Colon cancer Heart disease Brother Colon cancer Heart disease Mother Heart disease High cholesterol Surgical History History of carpal tunnel surgery of left wrist History of hip surgery History of orthopedic surgery Social History household members: none Smoking Status: Former smoker how long ago did patient quit smokin alcohol intake: never substance use type: does not use what type of physical activity do you participate in: other details: PT frequency: 1-2 times per week ROS Constitutional Constitutional: Denies chills, fever(s) or weight gain ENT HEENT: Denies headache(s), nasal congestion or nasal discharge Cardiovascular Cardiovascular: Denies chest pain or palpitations Respiratory/Chest Respiratory/Chest: Reports cough; Denies excessive phlegm production or shortness of breath with exertion Gastrointestinal Gastrointestinal: Denies abdominal pain, nausea or vomiting Genitourinary Genitourinary: Denies dysuria Musculoskeletal Musculoskeletal: Denies joint pain or joint swelling Integumentary Integumentary: Denies rash or wounds Neurologic Neurologic: Denies focal weakness, numbness or tingling Psychiatric Psychiatric: Denies anxiety, auditory hallucinations, depression, homicidal ideation or suicidal ideation Vital Signs Vital Signs Vital Signs: 12/13/21 16:09 12/13/21 19:45 12/13/21 22:00 Temperature 97.6 F L Temperature Source Temporal Pulse Rate 67 71 Pulse Rhythm Regular Pulse Strength Normal (2+) Normal (2+) Respiratory Rate 16 16 Respiratory Effort Normal Non-Labored Respiratory Depth Normal Respiratory Pattern Normal Blood Pressure 127/79 H Blood Pressure Mean 95 Blood Pressure Source Monitor Blood Pressure Position Sitting Blood Pressure Location Right Arm Pulse Ox 92 94 Oxygen Delivery Method Nasal Cannula Room Air 12/14/21 04:58 12/14/21 10:00 Temperature Temperature Source Pulse Rate 89 Pulse Rhythm Pulse Strength Normal (2+) Respiratory Rate Respiratory Effort Respiratory Depth Respiratory Pattern Blood Pressure 141/73 H Blood Pressure Mean 95 Blood Pressure Source Monitor Blood Pressure Position Sitting Blood Pressure Location Left Arm Pulse Ox Oxygen Delivery Method Weight Weight: 65.77 kg Body Mass Index (BMI) 23.3 Physical Exam Const alert General Appearance: cooperative HEENT normocephalic Eyes PERRL and EOMs intact bilaterally Neck supple, no JVD and no carotid bruits Resp normal respiratory effort, normal air movement and clear to auscultation bilaterally Cardio regular rate and regular rhythm GI normal to inspection, nondistended, normoactive bowel sounds, non-tender and non-distended Extremity normal capillary refill General Extremity: Negative for edema Skin no rashes or lesions noted General Skin Exam: no breakdown Psych affect normal Appearance: appropriate Results Lab / Micro Data Result Diagrams: 12/14/21 05:05 12/16/21 05:57 Labs: Laboratory Results - last 24 hr 12/14/21 05:05: WBC 7.7, RBC 3.88 L, Hgb 11.4 L, Hct 36.2 L, MCV 93.3, MCH 29.4, MCHC 31.5 L, RDW Std Deviation 50.4 H, RDW Coeff of [place] 14.6, Plt Count 354, MPV 9.3, Immature Gran % (Auto) 1.600 H, Neut % (Auto) 71.0 H, Lymph % (Auto) 18.0 L , [place] % (Auto) 7.5, Eos % (Auto) 1.4, Baso % (Auto) 0.5, Absolute Neuts (auto) 5.5, Absolute Lymphs (auto) 1.39, Nucleated RBC % 0 12/14/21 05:05: Sodium 139, Potassium 3.1 L, Chloride 107, Carbon Dioxide 24.0, Anion Gap 8, BUN 9, Creatinine 0.67, Estim Creat Clear Calc 38.75, Est GFR (MDRD) Af Amer 109, Est GFR (MDRD) Non-Af 90, BUN/Creatinine Ratio 13.4, Glucose 139 H, Calcium 9.0 12/14/21 05:05: Phosphorus 3.2 Assessment & Plan Assessment/Plan (1) Debility: (2) Encephalopathy: (3) Rhabdomyolysis: (4) Hypokalemia: (5) Urinary tract infection: (6) Vitamin D deficiency: (7) Iron deficiency anemia: (8) Insomnia: (9) Restless leg syndrome: (10) Osteoporosis: (11) Allergic rhinitis: (12) Essential tremor: PLAN: Plan 81 year old female with below past medical history hospitalized for rhabdomyolysis, complicated by encephalopathy secondary to UTI, electrolyte abnormalities, admitted to TCU with debility, here for rehabilitation, strengthening, prior to discharge home alone. * Debility - PT/OT. * Pain - Tylenol 1000mg q8, Lidoderm patch. * Bowel - Senna/colace 2 tablets bid prn, Dulcolax 10mg pr daily prn. * Adult immunization - Administer pneumonia vaccine, covid19 vaccine, flu vaccine as appropriate. * DVT prophlyaxis - Hold, falls, fraility. * Allergic Rhinitis - Astelin 1 spray nasal bid, Flonase 1 spray nasal daily, Atrovent 2 sprays tid prn. * Calcium deficiency - Calcium D tid. * UTI - Cipro 500mg bid thru 12/16/2021. * Nutrition - Ensure Enlive 120ml 4x/day. * Phosphorous deficiency - Neutra Phos 1 packet tid. * Hypokalemia - KCL 20meq daily. * Restless Leg syndrome - Mirapex 0.5mg qhs. * Essential tremor - Propranolol 20mg tid. * Rash - Triamcinoline cream topical daily.
[2021-12-14] MEDS: Potassium Chloride Oral Soln 20 MEQ/15 ML UDC PO (12:38)
--- NOTE | 2021-12-14 13:00 | NURSING ---
Son Kwesi notified about staff member testing positive for covid.
[2021-12-14 16:00] VITALS: BP 122/74; PULSE 70; RESP 16; TEMP 36.7
[2021-12-14] MEDS: Pramipexole Di-HCl 0.5 MG Tablet PO (21:41)
[2021-12-14 23:53] VITALS: RESP 18
[2021-12-15] MEDS: Lidocaine 5% Patch 1 PATCH TOPICAL (05:22)
[2021-12-15] MEDS: Ciprofloxacin 500 MG Tablet PO ×2 (05:23→17:49)
[2021-12-15] MEDS: Acetaminophen 500 MG Tablet 1000 MG PO ×3 (05:23→20:31)
[2021-12-15] MEDS: Propranolol 10 MG Tablet 20 MG PO ×3 (05:23→20:30)
[2021-12-15] MEDS: Na Biphos/Potassium Phosphate PACKET 1 PACKET PO ×3 (05:23→20:29)
[2021-12-15] MEDS: Fluticasone 0.05% 1 SPRAY NASAL.SRY NASAL (05:24)
[2021-12-15] MEDS: Triamcinolone 0.5% Cream 1 APPLIC TOPICAL (05:24)
[2021-12-15] MEDS: Azelastine HCl NASAL.SRY 1 SPRAY NASAL ×2 (05:33→17:49)
[2021-12-15 06:42] LABS: Magnesium 1.9 mg/dL (1.6-2.6); Phosphorus 4.3 mg/dL (2.5-4.9)
[2021-12-15] MEDS: Potassium Chloride Oral Soln 20 MEQ/15 ML UDC PO (08:36)
[2021-12-15] MEDS: Calcium Carb/Vitamin D 1 TABLET Tablet PO ×3 (08:37→17:49)
[2021-12-15 16:00] VITALS: BP 137/68; PULSE 64; RESP 18; TEMP 37.1; O2SAT 95
--- NOTE | 2021-12-15 17:09 | NURSING ---
pt alarm sounding, pt asking to leave. 1:1 support provided, offered BR and pt stated yes, I gotta go Assisted pt x1 with FWW. pt instructed to pull call light after finished on toilet. pt voiced understanding. This nurse waited in room and heard pt flush toilet and began to get up and pull pants up on own. started to assist pt back to bed and pt turned around and then pulled call light. Educated pt again on importance of using call light for assist to prevent injury. pt ambulated with walker to recliner chair. call light in lap. pressure sensitive alarm placed on recliner chair d/t noncompliance. pt very [place], but does wear RAZO but still has much difficulty hearing even with staff speaking in ear.
[2021-12-15] MEDS: Pramipexole Di-HCl 0.5 MG Tablet PO (20:29)
[2021-12-16 05:15] VITALS: BP 167/78; PULSE 67
[2021-12-16] MEDS: Propranolol 10 MG Tablet 20 MG PO ×3 (05:18→19:57)
[2021-12-16] MEDS: Azelastine HCl NASAL.SRY 1 SPRAY NASAL ×2 (05:18→16:31)
[2021-12-16] MEDS: Ciprofloxacin 500 MG Tablet PO ×2 (05:18→16:31)
[2021-12-16] MEDS: Na Biphos/Potassium Phosphate PACKET 1 PACKET PO ×3 (05:18→19:57)
[2021-12-16] MEDS: Acetaminophen 500 MG Tablet 1000 MG PO ×3 (05:18→19:58)
[2021-12-16] MEDS: Lidocaine 5% Patch 1 PATCH TOPICAL (05:18)
[2021-12-16] MEDS: Triamcinolone 0.5% Cream 1 APPLIC TOPICAL (05:19)
[2021-12-16] MEDS: Fluticasone 0.05% 1 SPRAY NASAL.SRY NASAL (05:19)
[2021-12-16 06:36] LABS: Anion Gap 6 (5-15); BUN 5 mg/dL (7-18); BUN/Creat Ratio 8.3 RATIO (10-20); Calcium,Total 9.1 mg/dL (8.5-10.1); Chloride 102 mmol/L (98-107); Creatinine, Serum 0.61 mg/dL (0.55-1.02); EST Glomerular Filtration Rate 101 mL/min (>60); Est Glom Filt Rate - Afr Amer 122 mL/min (>60); Estimated Creatinine Clearance 38.75 ml/min; Glucose 102 mg/dL (74-106); Magnesium 1.9 mg/dL (1.6-2.6); Phosphorus 4.2 mg/dL (2.5-4.9); Potassium 3.4 mmol/L (3.5-5.1); Sodium Level 138 mmol/L (136-145)
[2021-12-16] MEDS: Calcium Carb/Vitamin D 1 TABLET Tablet PO ×3 (08:12→16:24)
[2021-12-16] MEDS: Potassium Chloride Oral Soln 20 MEQ/15 ML UDC PO (08:12)
[2021-12-16 15:02] VITALS: BP 125/74; PULSE 77; RESP 17; TEMP 36.4; O2SAT 96
[2021-12-16] MEDS: MELATONIN 3 MG TABLET PO (19:56)
[2021-12-16] MEDS: Pramipexole Di-HCl 0.5 MG Tablet PO (19:57)
[2021-12-16 23:16] VITALS: PULSE 72; RESP 16; O2SAT 96
[2021-12-17] MEDS: Acetaminophen 500 MG Tablet 1000 MG PO ×3 (06:35→21:42)
[2021-12-17] MEDS: Na Biphos/Potassium Phosphate PACKET 1 PACKET PO ×3 (06:35→21:42)
[2021-12-17] MEDS: Propranolol 10 MG Tablet 20 MG PO ×3 (06:35→21:41)
[2021-12-17] MEDS: Fluticasone 0.05% 1 SPRAY NASAL.SRY NASAL (06:35)
[2021-12-17] MEDS: Lidocaine 5% Patch 1 PATCH TOPICAL (06:35)
[2021-12-17] MEDS: Azelastine HCl NASAL.SRY 1 SPRAY NASAL ×2 (06:36→17:13)
[2021-12-17] MEDS: Triamcinolone 0.5% Cream 1 APPLIC TOPICAL (07:43)
[2021-12-17] MEDS: Calcium Carb/Vitamin D 1 TABLET Tablet PO ×3 (08:43→17:13)
[2021-12-17] MEDS: Potassium Chloride Oral Soln 20 MEQ/15 ML UDC PO (08:43)
[2021-12-17 14:17] VITALS: BP 149/75; PULSE 79; RESP 18; TEMP 36.6; O2SAT 96
--- NOTE | 2021-12-17 17:08 | CASEMGMT ---
Social Work Initial insurance update due today - submitted - received [employer] LCD 12/22, DC 12/23. Met with pt. Pt is very confused. Stated she believes she is in a tenriism and wants to go home before the program tomorrow. Reoriented pt. Introduced self and role. Pt having difficulty being redirected. Ensured pt is safe and offered to call son to get more information. Pt appreciative. Contacted son. Son acknowledged pt is confused, which is due to UTI; however, son stated the staff were telling him she was doing better. Noted the oral ATB has been completed for UTI, but POC mtg held tomorrow and IDT will discuss progress and recommendations. Son answered assessment questions. Pt was independent prior, living home alone and managing all IADLs, driving, not using an assistive device. Son and visited pt frequently and had not noticed any issues with cognition. Explained insurance issued [employer]. Explained appeal rights - P2P can be completed for an expedited appeal. SW to provide copy of [employer] to son at POC mtg tomorrow. Son agreed pt will need additional check-ins upon returning home. Offered private duty CREATIVE ASSISTANT list, food resources and medical alert resources. Son appreciative. SW to provide tomorrow. Son appreciative. Trista Chan, [employer]ER SOLAR FABRICATION TECHNICIAN
[2021-12-17 21:40] VITALS: BP 126/72; PULSE 78
[2021-12-17] MEDS: MELATONIN 3 MG TABLET PO (21:44)
[2021-12-17 21:57] VITALS: PULSE 78; RESP 16; O2SAT 93
[2021-12-18 05:44] VITALS: BP 166/87; PULSE 70
[2021-12-18] MEDS: Propranolol 10 MG Tablet 20 MG PO ×3 (05:44→19:30)
[2021-12-18] MEDS: Acetaminophen 500 MG Tablet 1000 MG PO ×3 (05:45→19:32)
[2021-12-18] MEDS: Na Biphos/Potassium Phosphate PACKET 1 PACKET PO ×3 (05:45→19:32)
[2021-12-18] MEDS: Azelastine HCl NASAL.SRY 1 SPRAY NASAL ×2 (05:48→16:45)
[2021-12-18] MEDS: Fluticasone 0.05% 1 SPRAY NASAL.SRY NASAL (05:50)
[2021-12-18] MEDS: Lidocaine 5% Patch 1 PATCH TOPICAL (05:50)
[2021-12-18] MEDS: Calcium Carb/Vitamin D 1 TABLET Tablet PO ×3 (08:28→16:45)
[2021-12-18] MEDS: Potassium Chloride Oral Soln 20 MEQ/15 ML UDC PO (08:28)
--- NOTE | 2021-12-18 09:52 | PCM.PN.DRR ---
TCU RX Drug Regimen Review Subjective: TCU Admission. 81 YOF presented to the ER with fall. Admitted to the hospital with rhabdomyolysis and electrolyte abnormalities. Then developed fever and encephalopathy secondary to presumptive E. coli UTI. Treated with Zosyn. Admitted to TCU with debility for strengthening and rehabilitation. Objective: Allergies No Known Allergies Allergy (Verified 12/10/21 20:16) Current Medications Generic Name Dose Route Start Last Admin Trade Name Freq PRN Reason Stop Dose Admin Acetaminophen 1,000 mg 12/13/21 22:00 12/18/21 05:45 Acetaminophen 500 Mg Tablet PO 1,000 mg Q8 SAUD Administration Azelastine HCl 1 spray 12/13/21 18:00 12/18/21 05:48 Azelastine Hcl Nasal.Sry NASAL 1 spray BID SAUD Administration Bisacodyl 10 mg 12/13/21 16:28 Bisacodyl 10 Mg Suppository RC DAILY PRN CONSTIPATION Calcium/Vitamin D 1 tablet 12/13/21 17:45 12/18/21 08:28 Calcium Carb/Vitamin D 1 Tablet Tablet PO 1 tablet TIDCM SAUD Administration Fluticasone Propionate 1 spray 12/14/21 06:00 12/18/21 05:50 Fluticasone 0.05% 1 [place] Nasal.Sry NASAL 1 spray DAILY SAUD Administration Ipratropium [place] 2 spray 12/13/21 16:21 Ipratropium [place] 0.06% Nasal [place] NASAL TID PRN allergy symptoms Lidocaine 1 patch 12/14/21 06:00 12/18/21 05:50 Lidocaine 5% Patch TOPICAL 1 patch DAILY SAUD Administration Protocol Melatonin 3 mg 12/16/21 22:00 12/17/21 21:44 Melatonin 3 Mg Tablet PO 3 mg QHS SAUD Administration Nutritional Formula (Lactose Free) 120 ml 12/13/21 17:00 12/18/21 05:53 Ensure Enlive 120 Ml Liquid PO 120 ml 4X/DAY SAUD Administration Potassium Chloride 20 meq 12/14/21 11:45 12/18/21 08:28 Potassium Chloride Oral Soln 20 Meq/15 Ml Udc PO 20 meq DAILYCM SAUD Administration Potassium Phos/Sodium Phos 1 packet 12/13/21 22:00 12/18/21 05:45 Na Biphos/Potassium Phosphate Packet PO 1 packet TID SAUD Administration Pramipexole Dihydrochloride 0.5 mg 12/13/21 22:00 12/18/21 01:58 Pramipexole Di-Hcl 0.5 Mg Tablet PO Not Given QHS [facility] Propranolol HCl 20 mg 12/13/21 22:00 12/18/21 05:44 Propranolol 10 Mg Tablet PO 20 mg TID [facility] Administration Senna/Docusate Sodium 2 tablet 12/13/21 16:21 Senna/Docusate Sodium 1 Tablet PO BID PRN Constipation Sodium Chloride 10 - 40 ml 12/13/21 16:37 0.9% Saline Lock 10 Ml Syringe IV UD PRN SALINE FLUSH Triamcinolone Acetonide 1 applic 12/14/21 06:00 12/18/21 05:51 Triamcinolone 0.5% Cream TOPICAL Not Given DAILY [facility] Protocol Tuberculin PPD 0.1 ml 12/21/21 10:00 Tuberculin,Purif.Prot.Deriv. 50 Tu/Ml Vial ID 12/21/21 10:01 X1 ONE Problem List (Last Reviewed 12/14/21 @ 12:[address] Yasir Pang MD) Essential tremor (Acute) Allergic rhinitis (Acute) Osteoporosis (Acute) Restless leg syndrome (Acute) Insomnia (Acute) Iron deficiency anemia (Acute) Vitamin D deficiency (Acute) Urinary tract infection (Acute) Hypokalemia (Acute) Rhabdomyolysis (Acute) Encephalopathy (Acute) Debility (Acute) Vital Signs Temp Pulse Resp BP Pulse Ox O2 Del Method 97.9 F 70 16 166/87 H 93 Room Air 12/17/21 14:17 12/18/21 05:44 12/17/21 21:57 12/18/21 05:44 12/17/21 21:57 12/17/21 21:57 Oxygen Delivery Method Room Air Weight: 65.72 kg Body Mass Index (BMI) 23.3 Sodium 138 mmol/L (136-145) 12/16/21 05:57 Potassium 3.4 mmol/L (3.5-5.1) L 12/16/21 05:57 Chloride 102 mmol/L (98-107) 12/16/21 05:57 Carbon Dioxide 30.0 mmol/L (21.0-32.0) 12/16/21 05:57 Anion Gap 6 (5-15) 12/16/21 05:57 BUN 5 mg/dL (7-18) L 12/16/21 05:57 Creatinine 0.61 mg/dL (0.55-1.02) 12/16/21 05:57 Est GFR (MDRD) Af Amer 122 mL/min (>60) 12/16/21 05:57 Est GFR (MDRD) Non-Af 101 mL/min (>60) 12/16/21 05:57 BUN/Creatinine Ratio 8.3 RATIO (10-20) L 12/16/21 05:57 Glucose 102 mg/dL (74-106) 12/16/21 05:57 Assessment/Plan: 1. Pain: acetaminophen 1000mg PO Q8 and lidocaine 5% patch 1 patch topically daily. Please continue to monitor for increased pain and rash. 2. Bowel: senna/docusate 2T PO BID PRN constipation and bisacodyl 10mg RC daily PRN constipation. Resident has not had any doses or any documented bowel movements. Please continue to monitor for constipation and PRN usage. 3. Allergic rhinitis: azelastine nasal spray 1 spray nasal BID, fluticasone 0.05% nasal spray 1 spray nasal daily and ipratropium 0.06% nasal spray 2 sprays nasal TID PRN allergy symptoms. Resident has not required any doses of ipratropium. Please continue to monitor for S/S of allergies, PRN usage and dry nostrils. 4. Restless leg syndrome: pramipexole 0.5mg PO QHS. Please continue to monitor for S/S of restless legs, confusion and dyskinesias. 5. Essential tremor: propranolol 20mg PO TID. Please continue to monitor for tremor, BP (last 3; 166/87, 126/72, 149/75) and HR (last 70). 6. Hypokalemia/phosphorus deficiency/calcium deficiency: potassium chloride solution 20mEq PO DAILYCM, calcium/vitamin D 1T PO TIDCM and Neutra Phos 1 packet PO TID. Resident's last vitamin D level is from 12/2017. Please consider ordering one now and then annually as clinically appropriate. Thanks. Please continue to monitor potassium (last 3.4mmol/L), phosphorous (last 4.2mg/dL), calcium (last 9.1 mg/dL), and sodium (last 138mmol/L). Assessment/Plan for indications treated with psychotropic medications: None Medical chart and medication regimen reviewed. The following medication irregularities or issues were identified: *1. Calcium/vitamin D 1T PO TIDCM. Resident's last vitamin D level is from 12/2017. Please consider ordering one now and then annually as clinically appropriate. Thanks. *2. Melatonin 3mg PO QHS. I did not see a documented indication for this medication. Please consider adding the indication. Thanks. Date of Note:: 12/18/21
[2021-12-18 12:04] VITALS: PULSE 60; RESP 16; O2SAT 92
--- NOTE | 2021-12-18 14:00 | CASEMGMT ---
Social Work IDT met with patient, all three sons, JOSÉ MIGUEL, for care plan meeting. Discussed patient's progress in PT/OT/ST/SN. Explained [facility] insurance coverage and DC date 12/23. Discussed home set up and IDT recommendations for 05/01 supervision for cognition and ADL assistance for safety. Family expressed noticed subtle memory changes in the last 6 months and noticed pt not paying bills on time. Pt saw Dr. Palm PCP whom ordered an MRI for brain, but insurance denied scan. Dr. Palm referred to neurologist but f/u appt is not until January and pt has not seen Dr. Palm since this admission to [facility]. FAmily requesting Dr. Pang order MRI, labs/u/a in case UTI has not cleared. SW left communication for Dr/nursing. Discussed options for DC plans and provided appropriate resources - AL, INSURANCE BILLER, SNF, medical alert, [place], food resources. Family to discuss and notify SW of plan. Family requesting daily updates from therapy on progress. SW initiated written communication between therapy and family daily in pt's room. Family appreciative. SW to continue to follow. Trista Chan, CLINICAL RESOURCE NURSE PROFESSOR OF EXERCISE SCIENCE
[2021-12-18 15:58] VITALS: BP 127/65; PULSE 60; RESP 16; TEMP 36.8; O2SAT 92
--- NOTE | 2021-12-18 17:02 | NURSING ---
Pt having decreased P.O. intake Dr. Pang updated N.O. for Remeron 7.5mg QHS. Order read back.
[2021-12-18] MEDS: MELATONIN 3 MG TABLET PO (19:31)
[2021-12-18] MEDS: Pramipexole Di-HCl 0.5 MG Tablet PO (19:31)
[2021-12-18] MEDS: Mirtazapine 15 MG Tablet 7.5 MG PO (19:32)
[2021-12-19 06:25] VITALS: BP 137/76; PULSE 88
[2021-12-19] MEDS: Propranolol 10 MG Tablet 20 MG PO ×3 (06:26→21:08)
[2021-12-19] MEDS: Azelastine HCl NASAL.SRY 1 SPRAY NASAL ×2 (06:26→18:21)
[2021-12-19] MEDS: Fluticasone 0.05% 1 SPRAY NASAL.SRY NASAL (06:27)
[2021-12-19] MEDS: Na Biphos/Potassium Phosphate PACKET 1 PACKET PO ×3 (06:27→21:08)
[2021-12-19] MEDS: Acetaminophen 500 MG Tablet 1000 MG PO ×3 (06:27→21:08)
[2021-12-19] MEDS: Lidocaine 5% Patch 1 PATCH TOPICAL (06:30)
[2021-12-19] MEDS: Calcium Carb/Vitamin D 1 TABLET Tablet PO ×3 (08:46→18:21)
[2021-12-19] MEDS: Potassium Chloride Oral Soln 20 MEQ/15 ML UDC PO (08:46)
[2021-12-19 14:00] VITALS: BP 123/69; PULSE 95; RESP 16; TEMP 37.3
[2021-12-19 14:35] VITALS: BP 123/69; PULSE 95; RESP 16; TEMP 37.3; O2SAT 99
--- NOTE | 2021-12-19 15:28 | NURSING ---
Pre Cert started for MRI of brain without contrast for recent cognitive decline ICD Code G31.84 CPT 13295. Medical Records Faxed to [facility] for review Reference # [id number] .
[2021-12-19 21:00] VITALS: BP 112/67; PULSE 70
[2021-12-19] MEDS: Pramipexole Di-HCl 0.5 MG Tablet PO (21:08)
[2021-12-19] MEDS: MELATONIN 3 MG TABLET PO (21:09)
[2021-12-19] MEDS: Mirtazapine 15 MG Tablet 7.5 MG PO (21:09)
[2021-12-20] MEDS: Azelastine HCl NASAL.SRY 1 SPRAY NASAL ×2 (05:31→18:30)
[2021-12-20] MEDS: Lidocaine 5% Patch 1 PATCH TOPICAL (05:31)
[2021-12-20] MEDS: Acetaminophen 500 MG Tablet 1000 MG PO ×3 (05:34→21:11)
[2021-12-20] MEDS: Na Biphos/Potassium Phosphate PACKET 1 PACKET PO ×3 (05:34→21:12)
[2021-12-20] MEDS: Propranolol 10 MG Tablet 20 MG PO ×3 (05:34→21:12)
[2021-12-20] MEDS: Fluticasone 0.05% 1 SPRAY NASAL.SRY NASAL (05:35)
[2021-12-20 05:42] VITALS: BP 149/68; PULSE 75
[2021-12-20] MEDS: Calcium Carb/Vitamin D 1 TABLET Tablet PO ×3 (07:48→18:30)
[2021-12-20] MEDS: Potassium Chloride Oral Soln 20 MEQ/15 ML UDC PO (07:48)
[2021-12-20 08:36] LABS: Absolute Neutrophil Count 3.6 X10^3/uL (2.0-7.7); Basophil# 0.03 X10^3/uL; Basophil% 0.5 % (0-1); Eosinophil# 0.09 X10^3/uL; Eosinophils% 1.5 % (0-5); Hematocrit 37.8 % (37-47); Hemoglobin 11.8 g/dL (12.0-15.0); Lymphocyte % 27.6 % (19-41); Mean Corp Hgb Conc 31.2 g/dL (32-36); Mean Corpuscular Hgb 29.4 pg (27.0-32.0); Mean Corpuscular Volume 94.3 fL (81-99); Mean Platelet Vol. 8.4 fl (6.2-12.0); Monocyte# 0.68 X10^3/uL; Monocyte% 11.1 % (0-10); NRBC Flagged by Analyzer 0 % (0-5); Neutrophil % 58.5 % (47-70); Platelet Count 434 K/mm3 (150-450); RBC Distribution Width SD 48.4 fl (35.1-43.9); Red Blood Count 4.01 M/mm3 (4.2-5.4); White Blood Count 6.2 K/mm3 (4.4-11.0)
--- NOTE | 2021-12-20 08:40 | PT ---
Pt's family requesting alarms be discontinued due to increased agitation with pt. Educated pt's son on pt's fall risk if up ad gary in room. Son understands risk and wants alarms to be discontinued. Pt is allowed to be up ad gary in her room with FWW. Staff notified on discontinuing use of alarms with pt and to instruct pt to use FWW when up in room.
[2021-12-20 08:52] LABS: ALB/GLOB Ratio 0.8 RATIO (0.9-2.4); AST(SGOT) 35 U/L (15-37); Alanine Aminotransfer ALT/SGPT 50 U/L (13-56); Albumin, Serum 3.1 g/dL (3.2-5.0); Alkaline Phosphatase 76 U/L (45-117); Anion Gap 4 (5-15); BUN 19 mg/dL (7-18); BUN/Creat Ratio 27.1 RATIO (10-20); Calcium,Total 9.4 mg/dL (8.5-10.1); Chloride 103 mmol/L (98-107); EST Glomerular Filtration Rate 85 mL/min (>60); Est Glom Filt Rate - Afr Amer 103 mL/min (>60); Estimated Creatinine Clearance 38.75 ml/min; Globulin 3.8 g/dL (2.2-4.2); Glucose 98 mg/dL (74-106); Phosphorus 4.7 mg/dL (2.5-4.9); Potassium 4.4 mmol/L (3.5-5.1); Protein, Total 6.9 g/dL (6.4-8.2); Sodium Level 138 mmol/L (136-145)
--- NOTE | 2021-12-20 09:42 | NURSING ---
Full Stack Php Developer Note: Interview and Section F of MDS complete.
--- NOTE | 2021-12-20 10:02 | CASEMGMT ---
Social Work Spoke with son to f/u on DC plans. Son states he feels pt is clearing cognitively and doing well physically, thus, he is agreeable to take her home on 12/23. Son plans to hire GAG WRITER to assist at home. Discussed HHC vs OP. Son prefers outpatient therapy at [facility] [place]. No DME needs. Son to transport. Referral made to [facility] for PT/OT/ST. Plan: DC home 12/23, [facility] PT/OT/ST CHERYL Banks
--- NOTE | 2021-12-20 10:34 | NURSING ---
This nurse collected urine via clean catch at 1024. Specimen sent to lab at this time
[2021-12-20 12:30] LABS: Bacteria 0 SEEN /hpf (None Seen); Mucous, Urine 0 SEEN /hpf (<or=2+); Red Blood Cells-Urine 0 SEEN /hpf (0-5); White Blood Cells 0 SEEN /hpf (0-5)
[2021-12-20] MEDS: Triamcinolone 0.5% Cream 1 APPLIC TOPICAL (12:30)
[2021-12-20 12:33] LABS: Color, Urine Yellow (Yellow); Glucose, Dipstick Normal (Normal); Ketone-Dipstick Negative (Negative); Leukocyte Esterase-Dipstick Negative /ul (Negative); Nitrite-Dipstick Negative (Negative); Occult Blood-Urine Negative /ul (Negative); Protein-Dipstick Negative (Negative); Specific Gravity, Urine 1.015 (1.002-1.030); Urine Bilirubin Dipstick Negative (Negative); Urine Clarity Clear (Clear); Urine Urobilinogen Normal (Normal)
[2021-12-20 12:38] LABS: Squamous Epithelial Cells - UA 0-5 SEEN /hpf (5-10)
--- NOTE | 2021-12-20 13:03 | DS.PCM_ITS ---
Providers Date of Admission: 12/13/21 Primary Care Physician: Dr. Lalo Palm, DO Reason For Visit: FALL, RHABDOMYOLYSIS, ENCEPHALOPATHY Diagnosis Discharge Diagnosis (1) Debility: Status: Acute Code(s): R53.81 - Other malaise (2) Encephalopathy: Status: Acute Code(s): G93.40 - Encephalopathy, unspecified (3) Rhabdomyolysis: Status: Acute Code(s): M62.82 - Rhabdomyolysis (4) Hypokalemia: Status: Acute Code(s): E87.6 - Hypokalemia (5) Urinary tract infection: Status: Acute Code(s): N39.0 - Urinary tract infection, site not specified (6) Vitamin D deficiency: Status: Acute Code(s): E55.9 - Vitamin D deficiency, unspecified (7) Iron deficiency anemia: Status: Acute Code(s): D50.9 - Iron deficiency anemia, unspecified (8) Insomnia: Status: Acute Code(s): G47.00 - Insomnia, unspecified (9) Restless leg syndrome: Status: Acute Code(s): G25.81 - Restless legs syndrome (10) Osteoporosis: Status: Acute Code(s): M81.0 - Age-related osteoporosis without current pathological fracture (11) Allergic rhinitis: Status: Acute Code(s): J30.9 - Allergic rhinitis, unspecified (12) Essential tremor: Status: Acute Code(s): G25.0 - Essential tremor Plan 81 year old female with below past medical history hospitalized for rhabdomyolysis, complicated by encephalopathy secondary to UTI, electrolyte abnormalities, admitted to TCU with debility, here for rehabilitation, strengthening, prior to discharge home alone. * Debility - PT/OT. * Pain - Tylenol 1000mg q8, Lidoderm patch. * Bowel - Senna/colace 2 tablets bid prn, Dulcolax 10mg pr daily prn. * Adult immunization - Administer pneumonia vaccine, covid19 vaccine, flu vaccine as appropriate. * DVT prophlyaxis - Hold, falls, fraility. * Allergic Rhinitis - Astelin 1 spray nasal bid, Flonase 1 spray nasal daily, Atrovent 2 sprays tid prn. * Calcium deficiency - Calcium D tid. * UTI - Cipro 500mg bid thru 12/16/2021. * Nutrition - Ensure Enlive 120ml 4x/day. * Phosphorous deficiency - Neutra Phos 1 packet tid. * Hypokalemia - KCL 20meq daily. * Restless Leg syndrome - Mirapex 0.5mg qhs. * Essential tremor - Propranolol 20mg tid. * Rash - Triamcinoline cream topical daily. Medications at Discharge Home Medications calcium citrate 250 mg calcium-vitamin D3 5 mcg (200 unit) tablet 1 tab PO TID Supplement 03/23/19 ipratropium bromide 42 mcg (0.06 %) nasal spray 2 spray intranasal TID PRN allergy symptoms #15 mL 05/08/21 acetaminophen 500 mg tablet 1,000 mg PO Q8 Pain 1-10 12/13/21 azelastine 137 mcg (0.1 %) nasal spray aerosol 1 spray intranasal BID Allergies 12/13/21 fluticasone propionate 50 mcg/actuation nasal spray,suspension See Rx Instructions .Route .COMPLEX Allergies 12/13/21 lidocaine 5 % topical patch 1 patch topical DAILY Pain 12/13/21 pramipexole 0.5 mg tablet 0.5 mg PO QHS Sleep 12/13/21 propranolol 20 mg tablet 20 mg PO TID BP 12/13/21 triamcinolone acetonide 0.1 % topical ointment 1 applic topical DAILY Steroid 12/13/21 mirtazapine 15 mg tablet 7.5 mg PO QHS 30 days #15 tabs 12/20/21 potassium chloride 20 mEq/15 mL oral liquid 20 meq (15 mL) PO DAILYCM 30 days #450 mL 12/20/21 Hospital Course Operations None Procedures None Summary of Care Provided Minutes Spent on Discharge: 35 Hospital Course: 81 year old female with below past medical history hospitalized for rhab domyolysis, complicated by encephalopathy secondary to UTI, electrolyte abnormalities, admitted to TCU with debility, here for rehabilitation, strengthening, prior to discharge home alone. Discharge home alone 12/23/2021, [employer] PT/OT/ST. Physical Exam Const alert General Appearance: cooperative HEENT normocephalic Eyes PERRL and EOMs intact bilaterally Neck supple, no JVD and no carotid bruits Resp normal respiratory effort, normal air movement and clear to auscultation bilaterally Cardio regular rate and regular rhythm GI normal to inspection, nondistended, normoactive bowel sounds, non-tender and non-distended Extremity normal capillary refill General Extremity: Negative for edema Skin no rashes or lesions noted General Skin Exam: no breakdown Psych affect normal Appearance: appropriate Weight / BMI Weight Weight: 65.72 kg Body Mass Index (BMI) 23.3 ABG / Lab / Microbiology Data Result Diagrams: 12/20/21 08:25 12/20/21 08:25 Laboratory: Laboratory Results - last 24 hr 12/20/21 08:25: WBC 6.2, RBC 4.01 L, Hgb 11.8 L, Hct 37.8, MCV 94.3, MCH 29.4, M CHC 31.2 L, RDW Std Deviation 48.4 H, RDW Coeff of Tiffanie 14.0, Plt Count 434, MPV 8.4, Immature Gran % (Auto) 0.800, Neut % (Auto) 58.5, Lymph % (Auto) 27.6, Guthrie % (Auto) 11.1 H, Eos % (Auto) 1.5, Baso % (Auto) 0.5, Absolute Neuts (auto) 3.6, Absolute Lymphs (auto) 1.70, Nucleated RBC % 0 12/20/21 08:25: Sodium 138, Potassium 4.4, Chloride 103, Carbon Dioxide 31.0, Anion Gap 4 L, BUN 19 H, Creatinine 0.70, Estim Creat Clear Calc 38.75, Est GFR (MDRD) Af Amer 103, Est GFR (MDRD) Non-Af 85, BUN/Creatinine Ratio 27.1 H, Glucose 98, Calcium 9.4, Phosphorus 4.7, Total Bilirubin 0.20, AST 35, ALT 50, Alkaline Phosphatase 76, Total Protein 6.9, Albumin 3.1 L, Globulin 3.8, Albumin/Globulin Ratio 0.8 L 12/20/21 10:30: Urine Color Yellow, Urine Clarity Clear, Urine pH 6.0, Ur Speci fic Hollenberg 1.015, Urine Protein Negative, Urine Glucose (UA) Normal, Urine Ketones Negative, Urine Occult Blood Negative, Urine Nitrite Negative, Urine Bilirubin Negative, Urine Urobilinogen Normal, Ur Leukocyte Esterase Negative, Urine RBC 0 SEEN, Urine WBC 0 SEEN, Ur Squamous Epith Cells 0-5 SEEN, Urine Bacteria 0 SEEN, Urine Mucus 0 SEEN Microbiology: Microbiology 12/20/21 12:20 Nasal Secretion SARS-CoV-2 Antigen (Rapid) - Final D/C Instructions Discharge Diet: No restrictions Discharge Activity: Return to Normal Activity, May Shower and Use Walker Weight Bearing Status: Weight bearing as tolerated Call your doctor if you observe: Fever of 101 or Higher, Inability to urinate, Inability to have a bowel movement, Shortness of breath, Dizziness, Fainting spells, Swelling in the ankles, Chest pain and Uncontrolled pain Additional Instructions: Discharge home alone 12/23/2021, [employer] PT/OT/ST. Meaningful Use Info Meaningful Use Diagnoses (Choose all that apply): None applicable Discharge Plan Admission Admit Date/Time: 12/13/21 15:50 Primary Reason for Your Visit: Debility. Attending Provider: Yasir Pang Chi Primary Care Provider: Lalo Palm Instructions Additional Instructions / Restrictions: Discharge home alone 12/23/2021, [employer] PT/OT/ST. Discharge Orders/Prescriptions Prescriptions: New potassium chloride 20 mEq/15 mL Liquid 20 meq PO DAILYCM 30 Days Qty: 450 0RF mirtazapine 15 mg Tablet 7.5 mg PO QHS 30 Days Qty: 15 0RF Continued calcium citrate 250 mg calcium-vitamin D3 200 unit tablet 250 mg calcium- 200 unit tablet 1 tab PO TID ipratropium bromide 42 mcg (0.06 %) spray,non-aerosol 2 spray intranasal TID PRN (Reason: allergy symptoms) Qty: 15 1RF Rx Instructions: administer into each nostril acetaminophen 500 MG tablet 1,000 mg PO Q8 pramipexole 0.5 mg tablet 0.5 mg PO QHS triamcinolone acetonide 0.1 % ointment 1 applic topical DAILY lidocaine 5 % adhesive patch,medicated 1 patch topical DAILY Rx Instructions: leave on most painful area for up to 12 hrs azelastine 137 mcg (0.1 %) aerosol,spray 1 spray INTRANASAL BID Rx Instructions: administer into each nostril propranolol 20 mg tablet 20 mg PO TID fluticasone propionate 50 mcg/actuation spray,suspension See Rx Instructions .ROUTE .COMPLEX Rx Instructions: USE 1 SPRAY IN EACH NOSTRIL ONCE DAILY Discontinued sennosides-docusate sodium 8.6-50 mg tablet 2 tab PO BID PRN (Reason: Constipation) ciprofloxacin HCl [Cipro] 500 mg tablet 500 mg PO BID [id number] 250 mg tablet 2 tab PO TID Referrals / Follow Up: Lalo Palm DO [Primary Care Provider] - Disposition Disposition (needs filled in before D/C Order can be placed): Home, Self Care
--- NOTE | 2021-12-20 14:32 | NURSING ---
another resident visitor walking with pt in prado w/out device asking if we could help her. Pt was carrying bag of packed personal items looking for way off floor. Assisted x2 back to room, pt refused to sit in recliner chair, sitting on edge of bed. alarm in place. call light in reach. dr hardin updated, new order ativan x1. CAMDEN Ceja aware.
--- NOTE | 2021-12-20 14:57 | NURSING ---
Patient sitting on floor at this time. Will not allow staff to anything for her. Attempted to give Ativan 0.5mg per order, but patient is refusing stating I've never been treated so badly before. This nurse notified son and he will be here within an hour. Will attempt to give Ativan once patient is calmer. Aide is 1:1 with patient at this time. Will continue to monitor.
--- NOTE | 2021-12-20 15:19 | CASEMGMT ---
Social Work BIMS and PHQ-9 completed for MDS assessment. Trista Chan, INVESTIGATIVE ANALYST PERISHABLE FREIGHT INSPECTOR
--- NOTE | 2021-12-20 15:22 | NURSING ---
Wanderguard applied to RT ankle with some resistance. DATA CENTER PROJECT MANAGER helped hold pt hands, pt was trying to swing at this nurse. pt sitting in hallway on floor refusing to go anywhere. offered chair, pt sitting in chair now, DATA CENTER PROJECT MANAGER at side.
[2021-12-20 16:00] VITALS: BP 126/72; PULSE 78; RESP 18; TEMP 36.9; O2SAT 94
[2021-12-20 16:25] VITALS: PULSE 78; RESP 18; O2SAT 94
--- NOTE | 2021-12-20 16:43 | NURSING ---
pt son arrived, pt still sitting in hallway. ZENOBIA Weston notified of son being here.
[2021-12-20] MEDS: LORazepam 0.5 MG Tablet PO (18:25)
[2021-12-20] MEDS: Mirtazapine 15 MG Tablet 7.5 MG PO (21:11)
[2021-12-20] MEDS: MELATONIN 3 MG TABLET PO (21:11)
[2021-12-20] MEDS: Pramipexole Di-HCl 0.5 MG Tablet PO (21:12)
[2021-12-21 05:09] LABS: Absolute Lymphocyte Count 2.08 X10^3/uL (0.83-4.51); Absolute Neutrophil Count 2.3 X10^3/uL (2.0-7.7); Basophil# 0.04 X10^3/uL; Basophil% 0.8 % (0-1); Eosinophil# 0.12 X10^3/uL; Eosinophils% 2.3 % (0-5); Hematocrit 36.6 % (37-47); Hemoglobin 11.3 g/dL (12.0-15.0); Lymphocyte # 2.08 X10^3/ul (0.83-4.51); Lymphocyte % 39.8 % (19-41); Mean Corp Hgb Conc 30.9 g/dL (32-36); Mean Corpuscular Hgb 29.7 pg (27.0-32.0); Mean Corpuscular Volume 96.3 fL (81-99); Mean Platelet Vol. 8.6 fl (6.2-12.0); Monocyte# 0.64 X10^3/uL; Monocyte% 12.3 % (0-10); NRBC Flagged by Analyzer 0 % (0-5); Neutrophil # 2.28 X10^3/uL (2.7-7.7); Neutrophil % 43.7 % (47-70); Platelet Count 426 K/mm3 (150-450); RBC Distribution Width SD 49.7 fl (35.1-43.9); White Blood Count 5.2 K/mm3 (4.4-11.0)
[2021-12-21 05:27] LABS: Anion Gap 5 (5-15); BUN 22 mg/dL (7-18); BUN/Creat Ratio 28.6 RATIO (10-20); Calcium,Total 9.4 mg/dL (8.5-10.1); Chloride 103 mmol/L (98-107); Creatinine, Serum 0.77 mg/dL (0.55-1.02); EST Glomerular Filtration Rate 77 mL/min (>60); Est Glom Filt Rate - Afr Amer 93 mL/min (>60); Estimated Creatinine Clearance 38.75 ml/min; Glucose 100 mg/dL (74-106); Potassium 3.7 mmol/L (3.5-5.1); Sodium Level 139 mmol/L (136-145)
--- NOTE | 2021-12-21 06:10 | NURSING ---
Patient declines all 0600 medications this AM x3 attempts, declines blood pressure measurement, becomes agitated stating No! I don't want anymore. Space provided to reduce agitation. WIll notify oncoming nurse to reattempt later this AM.
[2021-12-21] MEDS: Na Biphos/Potassium Phosphate PACKET 1 PACKET PO ×3 (09:23→21:27)
[2021-12-21] MEDS: Calcium Carb/Vitamin D 1 TABLET Tablet PO ×3 (09:23→18:19)
[2021-12-21] MEDS: Potassium Chloride Oral Soln 20 MEQ/15 ML UDC PO (09:23)
[2021-12-21] MEDS: Propranolol 10 MG Tablet 20 MG PO ×3 (09:24→21:27)
[2021-12-21] MEDS: Acetaminophen 500 MG Tablet 1000 MG PO ×2 (14:02→21:28)
--- NOTE | 2021-12-21 15:11 | CM.ED ---
TEGAN Note TEGAN called TCU and spoke to RN. The TCU staff is unaware of an appeal and voiced that patient's listed discharge date is 12/22/21. TEGAN called patient's son, Jeb, and he said that patient had a terrible day and a rough day so he is filing an appeal. Jeb said that he called and left a voice mail message at 8:05 for the number that Trista gave me. TEGAN called Jeb back and inquired as to the discharge plan for patient. Jeb said that he thinks the plan is assisted living and that no assisted livings are open today. Jeb said if I have to private pay for 1 more day I will. TEGAN called Jeb back, after conferring with TEGAN Weston, and advised that family need to decide on assisted living [facility]. Jeb said that he will meet with brother's today and decide on facility. TEGAN advised that this keno writer/runner will make referral if AL is provided to this keno writer/runner today. TEGAN called [facility] staff and inquired on the status of the appeal. [facility] staff said that no appeal form. TEGAN advised that family had called and left voice mail. [facility] staff said that patient's family needs to talk to a live person. TEGAN called Jeb and advised that he needs to talk to a live person and make an appeal. Jeb said that he would call immediately. Jeb called this keno writer/runner and left voice mail with the TEGAN called Shira at [facility]. She said that the paperwork had not been sent as it was entered at [facility] in [place]. TEGAN provided Shira with the correct fax number and this keno writer/runner received [facility] paperwork. TEGAN called Jeb and updated him. Jeb is meeting with his brothers this evening to review placement options for patient. He has list of AL facilities that TEGAN Weston provided to him. TEGAN advised that this keno writer/runner is available till 10:30pm tonight and if he calls and speaks to this keno writer/runner TEGAN can fax referral to facility. Jeb has this keno writer/runner's contact number and agreed to call this keno writer/runner or leave message on Trista's phone. TEGAN called Sabine in TCU and advised that family had filed appeal for patient's stay. Plan: To be determined Ana Maria VELASQUEZ
[2021-12-21 15:25] VITALS: BP 121/75; PULSE 62; RESP 16; TEMP 36.7; O2SAT 96
[2021-12-21] MEDS: Azelastine HCl NASAL.SRY 1 SPRAY NASAL (18:19)
[2021-12-21 21:26] VITALS: BP 132/72; PULSE 72
[2021-12-21] MEDS: MELATONIN 3 MG TABLET PO (21:27)
[2021-12-21] MEDS: Pramipexole Di-HCl 0.5 MG Tablet PO (21:27)
[2021-12-21] MEDS: Mirtazapine 15 MG Tablet 7.5 MG PO (21:27)
--- NOTE | 2021-12-21 21:41 | CM.ED ---
At this time 9:43pm TEGAN called patient's son, Jose. Jose said that he went in this evening to see patient and she was doing much better and excellent. Jose said that he went in and patient was perfect.. well not perfect she has the general memory lapse but not the jekyl and pettit we have seen before. Jose said that he and his siblings were not able to meet today but they plan to meet tomorrow. Jose said that at this time they at leaning toward home with lots of help or if they are doing assisted living they are interested in [facility] but have not talked to [facility] about it yet. TEGAN advised that this sheet writer will update Trista He and encouraged Jose to call and also update Trista also. TEGAN left voice mail for Trista eH updated her. Ana Maria VELASQUEZ
[2021-12-22 05:45] VITALS: BP 112/60; PULSE 63
[2021-12-22] MEDS: Azelastine HCl NASAL.SRY 1 SPRAY NASAL ×2 (05:47→16:54)
[2021-12-22] MEDS: Propranolol 10 MG Tablet 20 MG PO ×3 (05:48→22:23)
[2021-12-22] MEDS: Acetaminophen 500 MG Tablet 1000 MG PO ×3 (05:48→22:23)
[2021-12-22] MEDS: Na Biphos/Potassium Phosphate PACKET 1 PACKET PO ×3 (05:49→22:24)
[2021-12-22] MEDS: Fluticasone 0.05% 1 SPRAY NASAL.SRY NASAL (05:53)
[2021-12-22] MEDS: Calcium Carb/Vitamin D 1 TABLET Tablet PO ×3 (07:57→16:52)
[2021-12-22] MEDS: Potassium Chloride Oral Soln 20 MEQ/15 ML UDC PO (07:57)
[2021-12-22 15:09] VITALS: BP 105/72; PULSE 75; RESP 18; TEMP 36.6; O2SAT 93
[2021-12-22] MEDS: LORazepam 0.5 MG Tablet PO (18:38)
[2021-12-22] MEDS: MELATONIN 3 MG TABLET PO (22:23)
[2021-12-22] MEDS: Pramipexole Di-HCl 0.5 MG Tablet PO (22:23)
[2021-12-22] MEDS: Mirtazapine 15 MG Tablet 7.5 MG PO (22:24)
--- NOTE | 2021-12-23 04:29 | NURSING ---
Came on shift yesterday evening at 7pm to find patient sitting on chair just inside in room doorway, police detective speaking with her. Previous shift had called police to come speak with her at her request. She was very confused and unable to be re-oriented. She had belongings with her and had been talking about leaving. Staff had called patient's son to come in to help with patient. Officer stayed on unit near patient until son showed up around 1930. Patient still very confused, walked around unit with son for over an hour, was upset and felt like son wasn't being honest with her. Spoke w/ son before he went home for the night. He voiced frustration that MRI and neuro consult unable to be done. He said this was the worst he'd ever seen his mom's confusion and behavior and wanted to have workup done. He said he'd even consider paying for MRI out of pocket.
[2021-12-23] MEDS: Lidocaine 5% Patch 1 PATCH TOPICAL (05:05)
[2021-12-23] MEDS: Na Biphos/Potassium Phosphate PACKET 1 PACKET PO ×2 (05:07→21:11)
[2021-12-23] MEDS: Acetaminophen 500 MG Tablet 1000 MG PO ×2 (05:07→21:10)
[2021-12-23] MEDS: Propranolol 10 MG Tablet 20 MG PO ×2 (05:08→21:11)
[2021-12-23] MEDS: Azelastine HCl NASAL.SRY 1 SPRAY NASAL (05:11)
[2021-12-23] MEDS: Fluticasone 0.05% 1 SPRAY NASAL.SRY NASAL (05:11)
--- NOTE | 2021-12-23 07:52 | CASEMGMT ---
Addendum entered by Trista Chan 12/23/21 15:51: The [facility] denied Addendum entered by Trista Chan 12/23/21 14:53: Michelle requested to complete assessment. Provided nurse's station phone number to complete. [facility] denied. F/U with the [facility] and forwarded referral to another staff member, Joselin, as admissions stepped out of the office. They are reviewing. Contacted son to update on above. Son inquiring about paying privately to get an MRI prior to DC. Offered to contact billing/registration to get pricing, then Dr. Pang can decide on placing a new order. Son appreciative. Addendum entered by Trista Chan 12/23/21 09:21: [facility] does not have beds open. Met with son to discuss. Son agreeable to pay privately at TCU until pt can smoothly be transferred to another facility. Son requesting referrals to [facility], [facility] and [facility]. [facility] does not have memory care AL - referred to SNF. Will await outcomes. Original Note: Social Work Received voicemail from [email or web address] for appeal [id number] that pt lost appeal. Received voicemail from son, Kwesi, that they cannot take pt home and requesting referral to [facility]. IDT recommending memory care for AL. Referral made to [facility]. Will continued to follow. CHERYL BanksW
--- NOTE | 2021-12-23 10:40 | NURSING ---
Patient agitated at this time. She does not understand why she has to stay. Very restless, up moving around in room. This nurse tried to explain reason for stay and patient upset she cannot go home.
[2021-12-23 10:48] VITALS: PULSE 78; RESP 18; O2SAT 94
[2021-12-23] MEDS: Calcium Carb/Vitamin D 1 TABLET Tablet PO ×2 (12:38→16:51)
--- NOTE | 2021-12-23 15:28 | NURSING ---
Patient refused to have any medications this afternoon and is refusing blood pressure being taken. Patient very tearful and continues to state she wants to go home. Will continue to monitor.
--- NOTE | 2021-12-23 16:05 | NURSING ---
Addendum entered by Estephania Hernandes 12/23/21 20:36: Son/pt. medical billing representative (Kwesi) on unit, requesting to speak with in AM related to patient status/home medications, son notified that will be notified of his request and Dr. Pang will not return to unit until tomorrow but is available by phone as needed, son (Kwesi) states he does not want Dr. Pang updated at this time and would like to speak with tomorrow, expressed thanks for staff care and states he will be retuning to [facility] tomorrow to pay for MRI. Original Note: Obtained out of pocket cost per family request for MRI. Registration provided cost. Called son, Kwesi and provided information. Kwesi approved and is requesting that MRI be ordered and scheduled. Gave information to RN.
--- NOTE | 2021-12-23 19:40 | NURSING ---
Patient much calmer now. Son is in visiting at this time. Very thankful and appreciative of update.
--- NOTE | 2021-12-23 19:57 | NURSING ---
2 sons observed at patient bedside not wearing masks, sons educated on mask policy and encouraged to replace masks. Sons verbalize understanding and replace masks upon request.
[2021-12-23 21:00] VITALS: BP 158/85; PULSE 97
[2021-12-23] MEDS: MELATONIN 3 MG TABLET PO (21:10)
[2021-12-23] MEDS: Mirtazapine 15 MG Tablet 7.5 MG PO (21:10)
[2021-12-23] MEDS: Pramipexole Di-HCl 0.5 MG Tablet PO (21:13)
--- NOTE | 2021-12-23 21:26 | NURSING ---
Addendum entered by Estephania Hernandes 12/23/21 21:31: Personal items within reach Original Note: When sons were present, patient observed not talking to sons laying in bed with eyes closed, sons left for evening, patient observed awake in bed, talkative and cooperative at this time. Patient asked if she would like to call son (Kwesi), patient declined, no distress observed or reported. Accepts HS medications as ordered. No further requests at this time. Patient encouraged to utilize call light as needed for staff assist, verbalizes understanding.
[2021-12-24] MEDS: Lidocaine 5% Patch 1 PATCH TOPICAL (06:03)
[2021-12-24] MEDS: Propranolol 10 MG Tablet 20 MG PO ×3 (06:04→22:11)
[2021-12-24] MEDS: Na Biphos/Potassium Phosphate PACKET 1 PACKET PO ×3 (06:04→22:11)
[2021-12-24] MEDS: Acetaminophen 500 MG Tablet 1000 MG PO ×3 (06:05→22:12)
[2021-12-24] MEDS: Fluticasone 0.05% 1 SPRAY NASAL.SRY NASAL (06:08)
[2021-12-24] MEDS: Azelastine HCl NASAL.SRY 1 SPRAY NASAL ×2 (06:11→17:13)
--- NOTE | 2021-12-24 06:16 | NURSING ---
Patient awake, cooperative, dressed for the day, accepts AM meds as ordered, no agitation observed or reported. Pt. states put in a good word for me today so I can get back home. 1:1 provided, patient pleasant and smiling. No distress observed or reported. Denies requests. Call light and personal items within reach.
[2021-12-24] MEDS: Potassium Chloride Oral Soln 20 MEQ/15 ML UDC PO (07:49)
[2021-12-24] MEDS: Calcium Carb/Vitamin D 1 TABLET Tablet PO ×3 (07:49→17:13)
--- NOTE | 2021-12-24 08:25 | NURSING ---
SON HERE, STATES PT HAS NOT RECOLLECTION OF YESTERDAY ALSO ASKING ABOUT MEDICATIONS THAT PT IS ON AND COULD THIS BE CAUSING HER ISSUES. FEELS SHE IS WORSE SINCE ADMIT. DR THOMPSON ORDERED MRI OF BRAIN AND VIT B12. UPDATED SON. SON WANTS TO SPEAK WITH DONNA AND ZENOBIA RUCKER. SON VERY CONCERNED ABOUT HIS MOTHER. SON LEFT FLOOR TO PAY FOR MRI AT REGISTRATION DESK. REVIEWED PTS HOME MEDS WITH HOSPITAL MEDS WITH SON.
--- NOTE | 2021-12-24 08:49 | NURSING ---
dr hardin updated on son being very adamant wanting to speak with doctor. pt son getting loud and said he was told to be here by 8am and he was here before then. dr hardin came down from office to speak with son.
--- NOTE | 2021-12-24 09:04 | CASEMGMT ---
Social Work Received voicemail from [facility] that family toured, they have spoken to the nurse to complete assessment, and are completing the final cost, then will call the son to discuss, but can accept pt. Met with son, per his request. Updated him that [facility] has accepted pt and will contact him with cost. Son stated he would like a referral sent to [facility] [place] [facility] for their memory care unit as well as [facility] in [place]. Son stated pt is getting MRI done today, once those results are in, and have an accepting facility, pt will DC. Referral made. CHERYL BanksW
[2021-12-24 09:33] VITALS: PULSE 80; RESP 16; O2SAT 97
[2021-12-24 09:54] LABS: Vitamin B12 354 pg/mL (211-911)
[2021-12-24] MEDS: diazePAM 5 MG Tablet PO (12:24)
[2021-12-24 13:50] VITALS: BP 129/63; PULSE 66; RESP 18; TEMP 36.7; O2SAT 97
[2021-12-24] MEDS: MELATONIN 3 MG TABLET PO (22:11)
[2021-12-24] MEDS: Pramipexole Di-HCl 0.5 MG Tablet PO (22:11)
[2021-12-24] MEDS: Mirtazapine 15 MG Tablet 7.5 MG PO (22:11)
[2021-12-25] MEDS: Lidocaine 5% Patch 1 PATCH TOPICAL (04:51)
[2021-12-25] MEDS: Acetaminophen 500 MG Tablet 1000 MG PO ×3 (04:51→21:04)
[2021-12-25] MEDS: Azelastine HCl NASAL.SRY 1 SPRAY NASAL ×2 (04:53→16:28)
[2021-12-25] MEDS: Propranolol 10 MG Tablet 20 MG PO ×3 (04:54→21:04)
[2021-12-25] MEDS: Fluticasone 0.05% 1 SPRAY NASAL.SRY NASAL (04:54)
[2021-12-25] MEDS: Na Biphos/Potassium Phosphate PACKET 1 PACKET PO ×3 (04:55→21:03)
--- NOTE | 2021-12-25 06:39 | NURSING ---
Patient pleasant this shift. Able to make needs known. Able to answer orientation questions when given time. Meds taken without difficulty.
[2021-12-25] MEDS: Calcium Carb/Vitamin D 1 TABLET Tablet PO ×3 (07:24→16:28)
[2021-12-25] MEDS: Potassium Chloride Oral Soln 20 MEQ/15 ML UDC PO (07:24)
[2021-12-25 12:57] VITALS: BP 115/70; PULSE 76
[2021-12-25] MEDS: Senna/Docusate Sodium 1 Tablet 2 TABLET PO (12:58)
--- NOTE | 2021-12-25 13:24 | MDS.RN ---
Information for the mds was obtained from review of the clinical record, interview of resident, staff, and direct observation of resident's care.
--- NOTE | 2021-12-25 14:49 | CASEMGMT ---
Social Work Followed up with son - updated him [facility] accept. Son would like to talk to Dr. Pang to get MRI results. Provided son with Dr office hours and left communication to Dr. Babcock to notify SW by end of week with DC plans. Son expressed great appreciation for SW assistance. Trista Chan, CHERYL TREJOW
[2021-12-25 15:22] VITALS: BP 127/99; PULSE 79; RESP 18; TEMP 36.8; O2SAT 97
[2021-12-25] MEDS: MELATONIN 3 MG TABLET PO (21:02)
[2021-12-25] MEDS: Donepezil HCl 5 MG Tablet PO (21:02)
[2021-12-25] MEDS: Pramipexole Di-HCl 0.5 MG Tablet PO (21:03)
[2021-12-25] MEDS: Mirtazapine 15 MG Tablet 7.5 MG PO (21:03)
[2021-12-25 21:13] VITALS: BP 120/57; PULSE 73
--- NOTE | 2021-12-26 06:35 | NURSING ---
In room to give AM meds, explained to patient that RN was going to take BP and had pills for her. She said, I don't have any pills. Explained again that RN has morning meds for her, she said I don't want them and rolled over and ignored nurse.
[2021-12-26 09:17] VITALS: BP 147/90; PULSE 85
[2021-12-26] MEDS: Lidocaine 5% Patch 1 PATCH TOPICAL (09:19)
[2021-12-26] MEDS: Propranolol 10 MG Tablet 20 MG PO ×3 (09:19→20:25)
[2021-12-26] MEDS: Calcium Carb/Vitamin D 1 TABLET Tablet PO ×3 (09:19→18:51)
[2021-12-26] MEDS: Potassium Chloride Oral Soln 20 MEQ/15 ML UDC PO (09:20)
[2021-12-26] MEDS: Na Biphos/Potassium Phosphate PACKET 1 PACKET PO ×3 (09:20→20:26)
--- NOTE | 2021-12-26 13:05 | NURSING ---
Spoke with pt's son, Kwesi, and gave update on POC.
--- NOTE | 2021-12-26 13:08 | CASEMGMT ---
Addendum entered by Trista Chan 12/26/21 14:51: Left message with son to inquire about DC date. [facility] agreeable with DC Thursday or Thursday and they use [facility] if son is agreeable. Original Note: Social Work Received voicemail from son stating family is choosing [facility] in [place]. Updated [facility]. CHERYL BanksW
[2021-12-26 14:13] VITALS: BP 116/70; PULSE 76
[2021-12-26] MEDS: Acetaminophen 500 MG Tablet 1000 MG PO ×2 (14:28→20:26)
--- NOTE | 2021-12-26 15:45 | CASEMGMT ---
Social Work Son returned call and prefers DC 12/28 to allow time to move pts belongings to [place]. Son agreeable to [facility]. Updated [place]. Referral made to PT/OT/. Plan: DC to [facility] 12/28, [facility] PT/OT/ST Trista Chan, SPINNING LATHE OPERATOR HYDRAULIC MENTAL HEALTH PROGRAM DIRECTOR
[2021-12-26 15:59] VITALS: BP 121/68; PULSE 85; RESP 18; TEMP 36.3; O2SAT 98
--- NOTE | 2021-12-26 17:25 | TREXTCAR_ITS ---
Diet Diet Order/Speech Therapy: 12/13/21 16:34 Diet: Regular - General Food consistency:: Regular Liquid Consistency:: Regular/Thin Is pt able to select menu?: Yes Diet Comments: fortified foods w/ meals tid, ensure pudding w/ lunch, magic cup w/ dinner Routine Orders/Code Status Code Status: Full Code Wound(s) BLE abrasions: Wound Type: Abrasion Therapies Weight Bearing: Weight bearing as tolerated Problem/Diagnosis (1) Debility: Status: Acute Code(s): R53.81 - Other malaise (2) Encephalopathy: Status: Acute Code(s): G93.40 - Encephalopathy, unspecified (3) Rhabdomyolysis: Status: Acute Code(s): M62.82 - Rhabdomyolysis (4) Hypokalemia: Status: Acute Code(s): E87.6 - Hypokalemia (5) Urinary tract infection: Status: Acute Code(s): N39.0 - Urinary tract infection, site not specified (6) Vitamin D deficiency: Status: Acute Code(s): E55.9 - Vitamin D deficiency, unspecified (7) Iron deficiency anemia: Status: Acute Code(s): D50.9 - Iron deficiency anemia, unspecified (8) Insomnia: Status: Acute Code(s): G47.00 - Insomnia, unspecified (9) Restless leg syndrome: Status: Acute Code(s): G25.81 - Restless legs syndrome (10) Osteoporosis: Status: Acute Code(s): M81.0 - Age-related osteoporosis without current pathological fracture (11) Allergic rhinitis: Status: Acute Code(s): J30.9 - Allergic rhinitis, unspecified (12) Essential tremor: Status: Acute Code(s): G25.0 - Essential tremor Plan 81 year old female with below past medical history hospitalized for rhabdomyolysis, complicated by encephalopathy secondary to UTI, electrolyte abnormalities, admitted to TCU with debility, here for rehabilitation, strengthening, prior to discharge home alone. * Debility - PT/OT. * Pain - Tylenol 1000mg q8, Lidoderm patch. * Bowel - Senna/colace 2 tablets bid prn, Dulcolax 10mg pr daily prn. * Adult immunization - Administer pneumonia vaccine, covid19 vaccine, flu vaccine as appropriate. * DVT prophlyaxis - Hold, falls, fraility. * Allergic Rhinitis - Astelin 1 spray nasal bid, Flonase 1 spray nasal daily, Atrovent 2 sprays tid prn. * Calcium deficiency - Calcium D tid. * UTI - Cipro 500mg bid thru 12/16/2021. * Nutrition - Ensure Enlive 120ml 4x/day. * Phosphorous deficiency - Neutra Phos 1 packet tid. * Hypokalemia - KCL 20meq daily. * Restless Leg syndrome - Mirapex 0.5mg qhs. * Essential tremor - Propranolol 20mg tid. * Rash - Triamcinoline cream topical daily. Allergies/Procedures Done in Hospital Allergies No Known Allergies Allergy (Verified 12/10/21 20:16) Procedures: None Type of Care/Length of Stay Estimated LOS: Convalescent Care Less Than 30 days Type of Care Needed: Intermediate/Assisted Living Rehab Potential: Good Prognosis: Fair Additional Orders/Day of Discharge Day of Discharge: 12/28/21 Dietary and Speech Recommendations Dietitian Recommendations/Changes: Will continue liberal Regular diet - will add fortified foods at meals and ensure pudding or magic cup w/ lunch and dinner for increased nutrition if consumed Will continue 120 ml ensure enlive 4x/day w/ medpass Rec continue appetite stimulant d/t continued poor po intake and s/s of malnutrition. Follow Up Care Please follow up with your Primary Care Physician in: [facility] Discharge Plan Admission Admit Date/Time: 12/13/21 15:50 Primary Reason for Your Visit: Debility. Attending Provider: Yasir Pang Chi Primary Care Provider: [facility] Instructions Additional Instructions / Restrictions: Discharge home alone 12/23/2021, [facility] PT/OT/ST. Discharge Orders/Prescriptions Prescriptions: New potassium chloride 20 mEq/15 mL Liquid 20 meq PO DAILYCM 30 Days Qty: 450 0RF mirtazapine 15 mg Tablet 7.5 mg PO QHS 30 Days Qty: 15 0RF donepezil 5 mg Tablet 5 mg PO QHS 30 Days Qty: 30 0RF Continued calcium citrate 250 mg calcium-vitamin D3 200 unit tablet 250 mg calcium- 200 unit tablet 1 tab PO TID ipratropium bromide 42 mcg (0.06 %) spray,non-aerosol 2 spray intranasal TID PRN (Reason: allergy symptoms) Qty: 15 1RF Rx Instructions: administer into each nostril acetaminophen 500 MG tablet 1,000 mg PO Q8 pramipexole 0.5 mg tablet 0.5 mg PO QHS triamcinolone acetonide 0.1 % ointment 1 applic topical DAILY lidocaine 5 % adhesive patch,medicated 1 patch topical DAILY Rx Instructions: leave on most painful area for up to 12 hrs azelastine 137 mcg (0.1 %) aerosol,spray 1 spray INTRANASAL BID Rx Instructions: administer into each nostril propranolol 20 mg tablet 20 mg PO TID fluticasone propionate 50 mcg/actuation spray,suspension See Rx Instructions .ROUTE .COMPLEX Rx Instructions: USE 1 SPRAY IN EACH NOSTRIL ONCE DAILY Discontinued sennosides-docusate sodium 8.6-50 mg tablet 2 tab PO BID PRN (Reason: Constipation) ciprofloxacin HCl [Cipro] 500 mg tablet 500 mg PO BID V-Gpzn-Ishonsa 250 mg tablet 2 tab PO TID Referrals / Follow Up: Lalo Palm DO [Primary Care Provider] - Disposition Disposition (needs filled in before D/C Order can be placed): Home, Self Care
[2021-12-26] MEDS: Azelastine HCl NASAL.SRY 1 SPRAY NASAL (18:51)
[2021-12-26] MEDS: Donepezil HCl 5 MG Tablet PO (20:25)
[2021-12-26] MEDS: Mirtazapine 15 MG Tablet 7.5 MG PO (20:26)
[2021-12-26] MEDS: Pramipexole Di-HCl 0.5 MG Tablet PO (20:26)
[2021-12-26] MEDS: MELATONIN 3 MG TABLET PO (20:26)
[2021-12-26 20:32] VITALS: BP 126/69; PULSE 79
[2021-12-27 06:12] VITALS: BP 117/62; PULSE 61
[2021-12-27] MEDS: Na Biphos/Potassium Phosphate PACKET 1 PACKET PO ×3 (06:14→21:13)
[2021-12-27] MEDS: Acetaminophen 500 MG Tablet 1000 MG PO ×3 (06:14→21:13)
[2021-12-27] MEDS: Azelastine HCl NASAL.SRY 1 SPRAY NASAL ×2 (06:14→18:33)
[2021-12-27] MEDS: Propranolol 10 MG Tablet 20 MG PO ×3 (06:15→21:13)
[2021-12-27] MEDS: Fluticasone 0.05% 1 SPRAY NASAL.SRY NASAL (06:15)
[2021-12-27] MEDS: Lidocaine 5% Patch 1 PATCH TOPICAL (06:20)
[2021-12-27] MEDS: Potassium Chloride Oral Soln 20 MEQ/15 ML UDC PO (08:20)
[2021-12-27] MEDS: Calcium Carb/Vitamin D 1 TABLET Tablet PO ×3 (08:20→18:33)
--- NOTE | 2021-12-27 14:44 | CHAPLAIN ---
Type of Pastoral Visit _x__ Initial Visit ___ Follow-up Visit ___ On-call Visit ___ General Patient Visit ___ Spiritual Assessment ___ Family Conference ___ Bereavement ___ Rapid Response ___ Code Blue ___ Other (describe below) Pastoral Care Referral From _x__ Patient _x__ Family ___ Nurse ___ Physician ___ Cutter Hot Knife ___ Supply Chain Intern ___ Other (describe below) Sacrament/Intervention _x__ Active listening ___ Anointing ___ Moravian ___ Bereavement ___ Communion _x__ Shayy exploration ___ _x__ Life review _x__ Prayer ___ Reconciliation ___ Sacrament of Sick _x__ Supportive presence ___ Wedding ___ Other (describe below) Pastoral Comments patient is working with a ball of yarn in her hands; pt has an faroese next to her and conversation begins around that; pt speaks of her family and making afghans for them; pt describes the members of her family; pt is asked about her life and her mandaeism shayy; 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
[2021-12-27 16:00] VITALS: BP 112/77; PULSE 78; RESP 16; TEMP 36.6; O2SAT 95
[2021-12-27 18:36] VITALS: PULSE 65; RESP 16; O2SAT 99
[2021-12-27] MEDS: Donepezil HCl 5 MG Tablet PO (21:13)
[2021-12-27] MEDS: Mirtazapine 15 MG Tablet 7.5 MG PO (21:13)
[2021-12-27] MEDS: MELATONIN 3 MG TABLET PO (21:13)
[2021-12-27] MEDS: Pramipexole Di-HCl 0.5 MG Tablet PO (21:13)
[2021-12-27 21:17] VITALS: BP 108/63; PULSE 77
[2021-12-28 05:53] LABS: Absolute Lymphocyte Count 1.79 X10^3/uL (0.83-4.51); Absolute Neutrophil Count 1.8 X10^3/uL (2.0-7.7); Basophil# 0.03 X10^3/uL; Basophil% 0.7 % (0-1); Eosinophil# 0.12 X10^3/uL; Eosinophils% 2.7 % (0-5); Hemoglobin 10.8 g/dL (12.0-15.0); Lymphocyte # 1.79 X10^3/ul (0.83-4.51); Lymphocyte % 40.6 % (19-41); Mean Corp Hgb Conc 31.8 g/dL (32-36); Mean Corpuscular Hgb 30.6 pg (27.0-32.0); Mean Corpuscular Volume 96.3 fL (81-99); Mean Platelet Vol. 8.8 fl (6.2-12.0); Monocyte# 0.69 X10^3/uL; Monocyte% 15.6 % (0-10); NRBC Flagged by Analyzer 0 % (0-5); Neutrophil # 1.76 X10^3/uL (2.7-7.7); Neutrophil % 39.9 % (47-70); Platelet Count 345 K/mm3 (150-450); RBC Distribution Width CV 13.9 % (11.6-14.6); RBC Distribution Width SD 49.6 fl (35.1-43.9); Red Blood Count 3.53 M/mm3 (4.2-5.4); White Blood Count 4.4 K/mm3 (4.4-11.0)
[2021-12-28] MEDS: Lidocaine 5% Patch 1 PATCH TOPICAL (05:59)
[2021-12-28] MEDS: Azelastine HCl NASAL.SRY 1 SPRAY NASAL (06:00)
[2021-12-28] MEDS: Fluticasone 0.05% 1 SPRAY NASAL.SRY NASAL (06:00)
[2021-12-28] MEDS: Acetaminophen 500 MG Tablet 1000 MG PO (06:01)
[2021-12-28] MEDS: Na Biphos/Potassium Phosphate PACKET 1 PACKET PO (06:01)
[2021-12-28] MEDS: Propranolol 10 MG Tablet 20 MG PO (06:01)
[2021-12-28 06:12] LABS: Anion Gap 5 (5-15); BUN 19 mg/dL (7-18); BUN/Creat Ratio 29.6 RATIO (10-20); Calcium,Total 8.8 mg/dL (8.5-10.1); Chloride 108 mmol/L (98-107); Creatinine, Serum 0.64 mg/dL (0.55-1.02); EST Glomerular Filtration Rate 95 mL/min (>60); Est Glom Filt Rate - Afr Amer 114 mL/min (>60); Estimated Creatinine Clearance 38.75 ml/min; Glucose 96 mg/dL (74-106); Potassium 3.8 mmol/L (3.5-5.1); Sodium Level 142 mmol/L (136-145)
[2021-12-28] MEDS: Potassium Chloride Oral Soln 20 MEQ/15 ML UDC PO (07:47)
[2021-12-28] MEDS: Calcium Carb/Vitamin D 1 TABLET Tablet PO (07:47)
[2021-12-28 10:00] VITALS: PULSE 67; RESP 16; O2SAT 95
[2021-12-28 10:24] VITALS: BP 114/60; PULSE 67; RESP 16; TEMP 36.7; O2SAT 95
== END 2021-12-28 10:15 | disposition home or self-care (01) | DRG 690 ==
PROVIDERS: Admitting Provider Family Medicine Geriatric Medicine; PCP Family Medicine; Visit Provider Family Medicine Geriatric Medicine
DX: N39.0 Urinary tract infection, site not specified (principal); G93.40 Encephalopathy, unspecified; M62.82 Rhabdomyolysis; E55.9 Vitamin D deficiency, unspecified; J30.9 Allergic rhinitis, unspecified; G25.0 Essential tremor; I10 Essential (primary) hypertension; E78.5 Hyperlipidemia, unspecified; D50.9 Iron deficiency anemia, unspecified; E87.6 Hypokalemia; G25.81 Restless legs syndrome; G89.29 Other chronic pain; M81.0 Age-related osteoporosis without current pathological fracture; Z87.891 Personal history of nicotine dependence; Z79.899 Other long term (current) drug therapy
CPT/HCPCS: 36415; 80048; 80053; 81001; 82607; 83735; 84100; 85025; 87086; 87088; 87426; 92507; 92523; 97110; 97116; 97161; 97166; 97530; 97535; 97802

== ENCOUNTER → 2021-12-24 | Outpatient (CLI) | payer MEDICARE, SELFPAY ==
--- NOTE | 2021-12-24 11:24 | MRI_ITS ---
EXAM: MR HEAD WITHOUT INTRAVENOUS CONTRAST CLINICAL INDICATION: Mental status change. TECHNIQUE: Multiplanar and multisequence MR images of the brain were obtained without intravenous contrast. This report was created using [employer] report generation technology. COMPARISON: CT head without contrast 12/10/2021. FINDINGS: BRAIN AND EXTRA-AXIAL SPACES: No diffusion restriction to suspect acute or subacute ischemic infarct. No remote cortical based ischemic infarct. T2 FLAIR hyperintensity foci in the white matter of both cerebral hemispheres are chronic white matter ischemic changes. No intra- or extra-axial hemorrhage. No intracranial mass or mass effect. Posterior fossa structures are unremarkable. Ventricles are appropriate for age. No hydrocephalus. Basal cisterns are patent. SELLA: Unremarkable. Normal sella turcica, pituitary gland, infundibular stalk, optic chiasm and hypothalamus. AUDITORY SYSTEM: Unremarkable. The internal auditory canals are patent. BONES/JOINTS: Unremarkable. No discrete lytic or blastic abnormalities. SINUSES: Unremarkable as visualized. Clear. MASTOID AIR CELLS: Unremarkable as visualized. Clear. ORBITS: Unremarkable as visualized. Both globes, extraocular muscles, optic nerves and retrobulbar fat appear unremarkable. VASCULATURE: Unremarkable as visualized. Normal flow voids in the major intracranial circulation. MRI/Brain without Contrast IMPRESSION: 1. No MRI evidence of acute or subacute ischemic infarct, intracranial mass or acute intracranial abnormality. 2. Chronic white matter ischemic changes in both cerebral hemispheres. Electronically Signed: Олег Santana MD at 15:48 EDT ,
== END | disposition home or self-care (01) ==
PROVIDERS: PCP Family Medicine; Visit Provider Family Medicine Geriatric Medicine
DX: R41.82 Altered mental status, unspecified (principal)
CPT/HCPCS: 70551

== ENCOUNTER → 2022-02-11 | Outpatient (CLI) | payer MEDICARE, SELFPAY ==
[2022-02-18 11:43] LABS: Vitamin B1, Thiamine 127.4 nmol/L (66.5-200.0)
== END | disposition home or self-care (01) ==
LOC: MTLAB 12:53
PROVIDERS: PCP Family Medicine; Referring Provider Psychiatry & Neurology Neurology; Visit Provider Psychiatry & Neurology Neurology
DX: F03.90 Unspecified dementia, unspecified severity, without behavioral disturbance, psychotic disturbance, mood disturbance, and anxiety (principal)
CPT/HCPCS: 36415; 82746; 84425

== ENCOUNTER 2022-02-15 12:16 | Emergency (ER) | payer MEDICARE, SELFPAY ==
[2022-02-15 12:17] VITALS: BP 124/71; PULSE 50; RESP 15; TEMP 36.1; O2SAT 100; BMI 21.9
--- NOTE | 2022-02-15 12:41 | EKG12_ITS ---
Test Reason : Blood Pressure : / mmHG Vent. 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
[2022-02-15 13:12] LABS: Absolute Lymphocyte Count 2.15 X10^3/uL (0.83-4.51); Absolute Neutrophil Count 3.5 X10^3/uL (2.0-7.7); Basophil# 0.03 X10^3/uL; Basophil% 0.4 % (0-1); Eosinophil# 0.16 X10^3/uL; Eosinophils% 2.4 % (0-5); Hematocrit 35.8 % (37-47); Hemoglobin 11.4 g/dL (12.0-15.0); Lymphocyte # 2.15 X10^3/ul (0.83-4.51); Lymphocyte % 31.7 % (19-41); Mean Corp Hgb Conc 31.8 g/dL (32-36); Mean Corpuscular Hgb 30.3 pg (27.0-32.0); Mean Corpuscular Volume 95.2 fL (81-99); Monocyte# 0.89 X10^3/uL; Monocyte% 13.1 % (0-10); NRBC Flagged by Analyzer 0 % (0-5); Neutrophil # 3.53 X10^3/uL (2.7-7.7); Neutrophil % 52.1 % (47-70); Platelet Count 296 K/mm3 (150-450); RBC Distribution Width CV 13.3 % (11.6-14.6); RBC Distribution Width SD 46.2 fl (35.1-43.9); Red Blood Count 3.76 M/mm3 (4.2-5.4); White Blood Count 6.8 K/mm3 (4.4-11.0)
[2022-02-15 13:17] VITALS: BP 112/56; BP 114/64; BP 122/69; BP 124/62; PULSE 47; PULSE 59; PULSE 63; PULSE 68; RESP 15; O2SAT 97
[2022-02-15 13:23] LABS: Anion Gap 6 (5-15); BUN 25 mg/dL (7-18); BUN/Creat Ratio 23.6 RATIO (10-20); Calcium,Total 9.7 mg/dL (8.5-10.1); Chloride 107 mmol/L (98-107); Creatinine, Serum 1.06 mg/dL (0.55-1.02); EST Glomerular Filtration Rate 53 mL/min (>60); Est Glom Filt Rate - Afr Amer 64 mL/min (>60); Estimated Creatinine Clearance 35.94 ml/min; Glucose 98 mg/dL (74-106); Potassium 4.3 mmol/L (3.5-5.1); Sodium Level 139 mmol/L (136-145)
--- NOTE | 2022-02-15 13:34 | EDS_ITS ---
HPI History of Present Illness Chief Complaint: Syncope Detail of Chief Complaint: Syncope and collapse last evening while sitting Informant: patient, family and SNF Onset/Context/Timing Onset: Yesterday Context: Sudden Onset Timing: Intermittent Quality: Patient had a syncopal episode with collapse while sitting last evening Location: Nursing facility Current Severity: Gone Maximum Severity: Moderate Worsened by: Nothing that patient recalls Relieved by: Nothing Associated Symptoms Associated Symptoms: Pallor, no drooling with no postictal state Narrative Narrative: Patient is an 82-year-old woman who is hard of hearing who reads lips. She had a syncopal sewed while sitting yesterday. She was noted to be pale. She did feel nauseous. Son informed me that the staff brought a bucket because they were concerned she was going to vomit. She apparently was diaphoretic There is no history of black or maroon stool. She is denies bruising easily. She is not on an anticoagulant. She does have history of reflux. She denies heartburn. She denies chest discomfort of any type or shortness of breath. She denies urologic symptoms. Per son neurologist does not believe the medicine she was recently started on for dementia as a cause. The neurologist and nurse practitioner had her sent to the emergency room for further evaluation. Son stated the felt an echo was indicated. Psych was informed that an echo would not be performed on a Thursday unless absolutely necessary. Prior similar symptoms: No Recent Illness/Hospitalization: No [facility] Medical History Acid reflux Acute UTI Anemia Anxiety Chronic low back pain Chronic pain Fall Fatigue Former smoker Fracture of left humerus History of ovarian cyst History of wrist fracture Hyperlipemia Hypertension Osteoporosis Post-nasal drainage Rhabdomyolysis Wears hearing aid in both ears Home Medications calcium citrate 250 mg calcium-vitamin D3 5 mcg (200 unit) tablet 1 tab PO TID Supplement 03/23/19 [History Last Taken Unknown] ipratropium bromide 42 mcg (0.06 %) nasal spray 2 spray intranasal TID PRN allergy symptoms #15 mL 05/08/21 [Rx Last Taken Unknown] acetaminophen 500 mg tablet 1,000 mg PO Q8 Pain 1-10 12/13/21 [History Last Taken Unknown] azelastine 137 mcg (0.1 %) nasal spray aerosol 1 spray intranasal BID Allergies 12/13/21 [History Last Taken Unknown] fluticasone propionate 50 mcg/actuation nasal spray,suspension See Rx Instructions .Route .COMPLEX Allergies 12/13/21 [History Last Taken Unknown] lidocaine 5 % topical patch 1 patch topical DAILY Pain 12/13/21 [History Last Taken Unknown] pramipexole 0.5 mg tablet 0.5 mg PO QHS Sleep 12/13/21 [History Last Taken Unknown] propranolol 20 mg tablet 20 mg PO TID BP 12/13/21 [History Last Taken Unknown] triamcinolone acetonide 0.1 % topical ointment 1 applic topical DAILY Steroid 12/13/21 [History Last Taken Unknown] mirtazapine 15 mg tablet 7.5 mg PO QHS 30 days #15 tabs 12/20/21 [Rx Last Taken Unknown] potassium chloride 20 mEq/15 mL oral liquid 20 meq (15 mL) PO DAILYCM 30 days #450 mL 12/20/21 [Rx Last Taken Unknown] donepezil 5 mg tablet 5 mg PO QHS 30 days #30 tabs 12/26/21 [Rx Last Taken Unknown] tramadol 50 mg tablet 50 mg PO BID PRN 02/11/22 [History Last Taken Unknown] memantine 10 mg tablet (Namenda) See Rx Instructions PO .COMPLEX #60 tabs 02/12/22 [Rx Last Taken Unknown] Allergy/AdvReac Type Severity Reaction Status Date / Time No Known Allergies Allergy Verified 02/15/22 12:17 Family History Grandmother Colon cancer Father Colon cancer Heart disease Brother Colon cancer Heart disease Mother Heart disease High cholesterol Surgical History History of carpal tunnel surgery of left wrist History of hip surgery History of orthopedic surgery Social History household members: none Smoking Status: Former smoker how long ago did patient quit smokin second hand exposure: No alcohol intake: never substance use type: does not use what type of physical activity do you participate in: other details: PT frequency: 1-2 times per week herrera/episcopal: Religious seatbelt use: always ROS ROS ED Review of Systems ROS Unobtainable: due to mental status and other Details: History limited to what has been documented in the HPI narrative due to dementia EXAM Physical Exam Const Vital Signs: 02/15/22 12:17 02/15/22 13:17 02/15/22 13:17 Temperature 96.9 F L Temperature Source Temporal Pulse Rate 50 L 63 Pulse Rate [Lying] 47 L Pulse Rate [Sitting (for 1 minute prior to obtaining)] 59 L Pulse Rate [Standing (for 1 minute prior to obtaining)] 68 Respiratory Rate 15 15 Respiratory Effort Respiratory Pattern Blood Pressure 124/71 H 124/62 H Blood Pressure [Lying] 112/56 L Blood Pressure [Sitting (for 1 minute prior to obtaining)] 114/64 Blood Pressure [Standing (for 1 minute prior to obtaining)] 122/69 H Blood Pressure Mean 88 82 Blood Pressure Mean [Lying] 74 Blood Pressure Mean [Sitting (for 1 minute prior to obtaining)] 80 Blood Pressure Mean [Standing (for 1 minute prior to obtaining)] 86 Pulse Ox 100 97 Oxygen Delivery Method Room Air Room Air 02/15/22 13:17 Temperature Temperature Source Pulse Rate Pulse Rate [Lying] Pulse Rate [Sitting (for 1 minute prior to obtaining)] Pulse Rate [Standing (for 1 minute prior to obtaining)] Respiratory Rate Respiratory Effort Normal Non-Labored Respiratory Pattern Normal Blood Pressure Blood Pressure [Lying] Blood Pressure [Sitting (for 1 minute prior to obtaining)] Blood Pressure [Standing (for 1 minute prior to obtaining)] Blood Pressure Mean Blood Pressure Mean [Lying] Blood Pressure Mean [Sitting (for 1 minute prior to obtaining)] Blood Pressure Mean [Standing (for 1 minute prior to obtaining)] Pulse Ox Oxygen Delivery Method Positive well nourished and well developed Constitutional Narrative: Patient appears slightly pale. She is hard of hearing. She is thin. General Appearance ED: well developed and NAD; Negative for cyanotic or diaphoretic HEENT Reports dry mucous membranes HEENT Narrative: Ears normal. Nares patent. Uvula midline. No deviation tongue or protrusion. No erythema or exudate the posterior. Negative for trauma or tenderness Mouth ED: Yes dry mucous membranes Mouth: dry mucous membranes Eyes PERRL and EOMs intact bilaterally General Eye ED: Yes pale conjunctiva; Negative for scleral icterus Neck no lymphadenopathy, supple and no JVD Chest Wall inspection of chest normal and palpation of chest normal Resp normal respiratory effort and clear to auscultation bilaterally Cardio regular rhythm, S1 normal heart sound, S2 normal heart sound and no murmurs Rate: bradycardia GI normal to inspection, nondistended, normoactive bowel sounds, non-tender, non- distended and no masses; Negative for hepatosplenomegaly Auscultation: normoactive bowel sounds Palpation: soft Back/Spine no CVA tenderness Cervical Spine: Negative for cervical spine tenderness Thoracic Spine / Upper Back: Negative for thoracic spinal tenderness Extremity normal to inspection General Extremety ED: Negative for edema or tenderness General Extremity: Negative for edema Neuro No oriented x3, CN's II-XII intact bilaterally and no sensory deficits noted Sensorium / Orientation: alert Motor Exam: strength 5/5 throughout Psych mental status grossly normal Skin no rashes or lesions noted, no wounds and skin turgor normal General Skin Exam: Negative for jaundice MDM MDM MDM Narrative Medical decision making narrative: Patient appears pale. Will obtain CBC to assess H&H. Basic metabolic panel was obtained to assess BUN and creatinine as well as electrolytes. EKG was obtained to rule out any dysrhythmia. Fluid bolus was ordered because patient is orthostatic and has an elevated BUN/creatinine ratio. Her anemia is chronic. Lab Data Attestation: I reviewed the patient's lab results. Lab results narrative: Patient's creatinine is higher than normal. Her BUN to creatinine ratio is greater than 20-1 which is abnormal compared to prior labs. Patient has mild dehydration. Will order 500 cc bolus. Labs: Laboratory Results - last 24 hr 02/15/22 02/15/22 13:00 13:00 WBC 6.8 RBC 3.76 L Hgb 11.4 L Hct 35.8 L MCV 95.2 MCH 30.3 MCHC 31.8 L RDW Std Deviation 46.2 H RDW Coeff of Tiffanie 13.3 Plt Count 296 MPV 9.0 Immature Gran % (Auto) 0.300 Neut % (Auto) 52.1 Lymph % (Auto) 31.7 [place] % (Auto) 13.1 H Eos % (Auto) 2.4 Baso % (Auto) 0.4 Absolute Neuts (auto) 3.5 Absolute Lymphs (auto) 2.15 Nucleated RBC % 0 Sodium 139 Potassium 4.3 Chloride 107 Carbon Dioxide 26.0 Anion Gap 6 BUN 25 H Creatinine 1.06 H Estim Creat Clear Calc 35.94 Est GFR (MDRD) Af Amer 64 Est GFR (MDRD) Non-Af 53 L BUN/Creatinine Ratio 23.6 H Glucose 98 Calcium 9.7 EKG Initial EKG: Attestation: I personally reviewed and interpreted this EKG as follows: Interpretation: Sinus Bradycardia (Rate is 57. [place] interval is 122 ms. QS duration 84 ms. QT duration 450 ms. [place] is normal. There is decreased anterior force. There is no acute ischemic changes.) Discharge Plan Triage Chief Complaint: Syncope ED Provider: Blake Juarez Dx/Rx/DC Orders Clinical Impression: Syncope and collapse, Orthostatic hypotension, Sinus bradycardia, Acute prerenal azotemia Instructions: ED Hypotension, Orthostatic, ED Fainting, Uncertain Cause Prescriptions: No Action calcium citrate 250 mg calcium-vitamin D3 200 unit tablet 250 mg calcium- 200 unit tablet 1 tab PO TID ipratropium bromide 42 mcg (0.06 %) spray,non-aerosol 2 spray intranasal TID PRN (Reason: allergy symptoms) Qty: 15 1RF Rx Instructions: administer into each nostril tramadol 50 mg tablet 50 mg PO BID PRN memantine [Namenda] 10 mg tablet See Rx Instructions PO .COMPLEX Qty: 60 4RF Rx Instructions: Beginning on 02/20/22, increase memantine 10mg to 1/2 tablet PO qAM and 1 tablet qPM for one week then 10mg BID thereafter. acetaminophen 500 MG tablet 1,000 mg PO Q8 pramipexole 0.5 mg tablet 0.5 mg PO QHS triamcinolone acetonide 0.1 % ointment 1 applic topical DAILY lidocaine 5 % adhesive patch,medicated 1 patch topical DAILY Rx Instructions: leave on most painful area for up to 12 hrs azelastine 137 mcg (0.1 %) aerosol,spray 1 spray INTRANASAL BID Rx Instructions: administer into each nostril propranolol 20 mg tablet 20 mg PO TID fluticasone propionate 50 mcg/actuation spray,suspension See Rx Instructions .ROUTE .COMPLEX Rx Instructions: USE 1 SPRAY IN EACH NOSTRIL ONCE DAILY potassium chloride 20 mEq/15 mL Liquid 20 meq PO DAILYCM 30 Days Qty: 450 0RF mirtazapine 15 mg Tablet 7.5 mg PO QHS 30 Days Qty: 15 0RF donepezil 5 mg Tablet 5 mg PO QHS 30 Days Qty: 30 0RF Primary Care Provider: L[facility] Palm Referrals: Lalo Palm, DO [Primary Care Provider] - 3-5 Days Activity Restrictions/Additional Instructions: Recommend repeat basic metabolic panel in 3 to 5 days to assess BUN and creatinine Encourage fluids Disposition Disposition: Home, Self Care
--- NOTE | 2022-02-15 13:55 | EX.ED.DYSGE1 ---
HPI History of Present Illness Chief Complaint: Syncope [facility] Medical History Acid reflux Acute UTI Anemia Anxiety Chronic low back pain Chronic pain Fall Fatigue Former smoker Fracture of left humerus History of ovarian cyst History of wrist fracture Hyperlipemia Hypertension Osteoporosis Post-nasal drainage Rhabdomyolysis Wears hearing aid in both ears Home Medications calcium citrate 250 mg calcium-vitamin D3 5 mcg (200 unit) tablet 1 tab PO TID Supplement 03/23/19 [History Last Taken Unknown] ipratropium bromide 42 mcg (0.06 %) nasal spray 2 spray intranasal TID PRN allergy symptoms #15 mL 05/08/21 [Rx Last Taken Unknown] acetaminophen 500 mg tablet 1,000 mg PO Q8 Pain 1-10 12/13/21 [History Last Taken Unknown] azelastine 137 mcg (0.1 %) nasal spray aerosol 1 spray intranasal BID Allergies 12/13/21 [History Last Taken Unknown] fluticasone propionate 50 mcg/actuation nasal spray,suspension See Rx Instructions .Route .COMPLEX Allergies 12/13/21 [History Last Taken Unknown] lidocaine 5 % topical patch 1 patch topical DAILY Pain 12/13/21 [History Last Taken Unknown] pramipexole 0.5 mg tablet 0.5 mg PO QHS Sleep 12/13/21 [History Last Taken Unknown] propranolol 20 mg tablet 20 mg PO TID BP 12/13/21 [History Last Taken Unknown] triamcinolone acetonide 0.1 % topical ointment 1 applic topical DAILY Steroid 12/13/21 [History Last Taken Unknown] mirtazapine 15 mg tablet 7.5 mg PO QHS 30 days #15 tabs 12/20/21 [Rx Last Taken Unknown] potassium chloride 20 mEq/15 mL oral liquid 20 meq (15 mL) PO DAILYCM 30 days #450 mL 12/20/21 [Rx Last Taken Unknown] donepezil 5 mg tablet 5 mg PO QHS 30 days #30 tabs 12/26/21 [Rx Last Taken Unknown] tramadol 50 mg tablet 50 mg PO BID PRN 02/11/22 [History Last Taken Unknown] memantine 10 mg tablet (Namenda) See Rx Instructions PO .COMPLEX #60 tabs 02/12/22 [Rx Last Taken Unknown] Allergy/AdvReac Type Severity Reaction Status Date / Time No Known Allergies Allergy Verified 02/15/22 12:17 Family History Grandmother Colon cancer Father Colon cancer Heart disease Brother Colon cancer Heart disease Mother Heart disease High cholesterol Surgical History History of carpal tunnel surgery of left wrist History of hip surgery History of orthopedic surgery Social History household members: none Smoking Status: Former smoker how long ago did patient quit smokin second hand exposure: No alcohol intake: never substance use type: does not use what type of physical activity do you participate in: other details: PT frequency: 1-2 times per week herrera/mosque: Spiritism seatbelt use: always EXAM Physical Exam Const Vital Signs: 02/15/22 12:17 02/15/22 13:17 02/15/22 13:17 Temperature 96.9 F L Temperature Source Temporal Pulse Rate 50 L 63 Pulse Rate [Lying] 47 L Pulse Rate [Sitting (for 1 minute prior to obtaining)] 59 L Pulse Rate [Standing (for 1 minute prior to obtaining)] 68 Respiratory Rate 15 15 Respiratory Effort Respiratory Pattern Blood Pressure 124/71 H 124/62 H Blood Pressure [Lying] 112/56 L Blood Pressure [Sitting (for 1 minute prior to obtaining)] 114/64 Blood Pressure [Standing (for 1 minute prior to obtaining)] 122/69 H Blood Pressure Mean 88 82 Blood Pressure Mean [Lying] 74 Blood Pressure Mean [Sitting (for 1 minute prior to obtaining)] 80 Blood Pressure Mean [Standing (for 1 minute prior to obtaining)] 86 Pulse Ox 100 97 Oxygen Delivery Method Room Air Room Air 02/15/22 13:17 Temperature Temperature Source Pulse Rate Pulse Rate [Lying] Pulse Rate [Sitting (for 1 minute prior to obtaining)] Pulse Rate [Standing (for 1 minute prior to obtaining)] Respiratory Rate Respiratory Effort Normal Non-Labored Respiratory Pattern Normal Blood Pressure Blood Pressure [Lying] Blood Pressure [Sitting (for 1 minute prior to obtaining)] Blood Pressure [Standing (for 1 minute prior to obtaining)] Blood Pressure Mean Blood Pressure Mean [Lying] Blood Pressure Mean [Sitting (for 1 minute prior to obtaining)] Blood Pressure Mean [Standing (for 1 minute prior to obtaining)] Pulse Ox Oxygen Delivery Method MDM MDM Lab Data Labs: Laboratory Results - last 24 hr 02/15/22 02/15/22 13:00 13:00 WBC 6.8 RBC 3.76 L Hgb 11.4 L Hct 35.8 L MCV 95.2 MCH 30.3 MCHC 31.8 L RDW Std Deviation 46.2 H RDW Coeff of Tiffanie 13.3 Plt Count 296 MPV 9.0 Immature Gran % (Auto) 0.300 Neut % (Auto) 52.1 Lymph % (Auto) 31.7 [place] % (Auto) 13.1 H Eos % (Auto) 2.4 Baso % (Auto) 0.4 Absolute Neuts (auto) 3.5 Absolute Lymphs (auto) 2.15 Nucleated RBC % 0 Sodium 139 Potassium 4.3 Chloride 107 Carbon Dioxide 26.0 Anion Gap 6 BUN 25 H Creatinine 1.06 H Estim Creat Clear Calc 35.94 Est GFR (MDRD) Af Amer 64 Est GFR (MDRD) Non-Af 53 L BUN/Creatinine Ratio 23.6 H Glucose 98 Calcium 9.7 Discharge Plan Triage Chief Complaint: Syncope ED Provider: Blake Juarez Dx/Rx/DC Orders Clinical Impression: Syncope and collapse, Orthostatic hypotension, Sinus bradycardia, Acute prerenal azotemia Instructions: ED Hypotension, Orthostatic, ED Fainting, Uncertain Cause Prescriptions: No Action calcium citrate 250 mg calcium-vitamin D3 200 unit tablet 250 mg calcium- 200 unit tablet 1 tab PO TID ipratropium bromide 42 mcg (0.06 %) spray,non-aerosol 2 spray intranasal TID PRN (Reason: allergy symptoms) Qty: 15 1RF Rx Instructions: administer into each nostril tramadol 50 mg tablet 50 mg PO BID PRN memantine [Namenda] 10 mg tablet See Rx Instructions PO .COMPLEX Qty: 60 4RF Rx Instructions: Beginning on 02/20/22, increase memantine 10mg to 1/2 tablet PO qAM and 1 tablet qPM for one week then 10mg BID thereafter. acetaminophen 500 MG tablet 1,000 mg PO Q8 pramipexole 0.5 mg tablet 0.5 mg PO QHS triamcinolone acetonide 0.1 % ointment 1 applic topical DAILY lidocaine 5 % adhesive patch,medicated 1 patch topical DAILY Rx Instructions: leave on most painful area for up to 12 hrs azelastine 137 mcg (0.1 %) aerosol,spray 1 spray INTRANASAL BID Rx Instructions: administer into each nostril propranolol 20 mg tablet 20 mg PO TID fluticasone propionate 50 mcg/actuation spray,suspension See Rx Instructions .ROUTE .COMPLEX Rx Instructions: USE 1 SPRAY IN EACH NOSTRIL ONCE DAILY potassium chloride 20 mEq/15 mL Liquid 20 meq PO DAILYCM 30 Days Qty: 450 0RF mirtazapine 15 mg Tablet 7.5 mg PO QHS 30 Days Qty: 15 0RF donepezil 5 mg Tablet 5 mg PO QHS 30 Days Qty: 30 0RF Primary Care Provider: Lalo Palm Referrals: Lalo Palm, [Primary Care Provider] - 3-5 Days Activity Restrictions/Additional Instructions: Recommend repeat basic metabolic panel in 3 to 5 days to assess BUN and creatinine Encourage fluids Disposition Disposition: Home, Self Care
[2022-02-15 14:11] VITALS: BP 121/67; PULSE 59; RESP 14; O2SAT 96
[2022-02-15 15:09] VITALS: BP 124/68
== END 2022-02-15 15:09 | disposition home or self-care (01) ==
PROVIDERS: Emergency Provider Emergency Medicine; PCP Family Medicine; Visit Provider Emergency Medicine
DX: I95.1 Orthostatic hypotension (principal); K21.9 Gastro-esophageal reflux disease without esophagitis; M54.50 Low back pain, unspecified; G89.29 Other chronic pain; Z87.891 Personal history of nicotine dependence; E78.5 Hyperlipidemia, unspecified; I10 Essential (primary) hypertension; M81.0 Age-related osteoporosis without current pathological fracture; Z79.899 Other long term (current) drug therapy; F41.9 Anxiety disorder, unspecified; D64.9 Anemia, unspecified
CPT/HCPCS: 80048; 85025; 93005; 99285; J7040; A4216

== ENCOUNTER → 2023-04-05 | Outpatient (CLI) | payer MEDICARE, SELFPAY ==
[2023-04-05 15:55] LABS: Bacteria 0 SEEN /hpf (None Seen); Mucous, Urine 0 SEEN /hpf (<or=2+); Red Blood Cells-Urine 0 SEEN /hpf (0-5)
[2023-04-05 16:04] LABS: Color, Urine Yellow (Yellow); Glucose, Dipstick Normal (Normal); Ketone-Dipstick Negative (Negative); Leukocyte Esterase-Dipstick 25 /ul (Negative); Nitrite-Dipstick Negative (Negative); Occult Blood-Urine 10 /ul (Negative); Protein-Dipstick 30 mg/dl (Negative); Specific Gravity, Urine 1.025 (1.002-1.030); Urine Bilirubin Dipstick 1 mg/dL (Negative); Urine Clarity Clear (Clear); Urine Urobilinogen 1 mg/dl (Normal)
[2023-04-05 16:12] LABS: Coarse Granular Cast 0 SEEN /lpf (0-5 /lpf); Fine Granular Cast- Urine 0 SEEN /lpf (0-5); Hyaline Cast 0 SEEN /lpf (0-5); Other Crystals-Urine 0 SEEN /hpf (None Seen); Red Cell Cast 0 SEEN /lpf (None Seen); Renal Epithelial Cells 0 SEEN /hpf (0-5); Transitional Epithelial - Ur 0 SEEN /hpf (0-5); Triple Phosphate Crystals Ur 0 SEEN /hpf (<or=1+); Uric Acid Crystals Ur 0 SEEN /hpf (<or=1+); Waxy Cast-Urine 0 SEEN /lpf (None Seen); White Cell Cast 0 SEEN /lpf (None Seen)
[2023-04-05 16:15] LABS: Calcium Oxalate Crystals Ur 2+ /hpf (<or=2+)
[2023-04-05 16:16] LABS: Squamous Epithelial Cells - UA 0-5 SEEN /hpf (5-10); White Blood Cells 0-5 SEEN /hpf (0-5)
== END | disposition home or self-care (01) ==
LOC: LABSPEC 15:54
PROVIDERS: Nurse Practitioner Family; PCP Family Medicine
DX: N39.0 Urinary tract infection, site not specified (principal); R30.0 Dysuria
CPT/HCPCS: 81001; 87086; 87088

== ENCOUNTER 2023-04-16 17:07 | Inpatient (IN) | payer MEDICARE, SELFPAY ==
[2023-04-16 17:08] VITALS: BP 170/118; PULSE 100; RESP 20; TEMP 36.6; O2SAT 96
[2023-04-16 17:17] VITALS: TEMP 37.8
--- NOTE | 2023-04-16 17:52 | EKG12_ITS ---
Test Reason : CHEST PAIN Blood Pressure : / mmHG Vent. Rate : 067 BPM Atrial Rate : 067 BPM P-R Int : 152 ms QRS Dur : 132 ms QT Int : 430 ms P-R-T Axes : 070 -46 080 degrees QTc Int : 454 ms Normal sinus rhythm Left axis deviation Left bundle branch block Abnormal ECG Confirmed by THOMAS SÁNCHEZ, ADRIANE ([id number]), senior technical editor JUANITA FUENTES ([id number]) on 04/27/2023 7:41:27 AM Referred By: Confirmed By:ANAY GUZMAN MD
[2023-04-16 17:59] VITALS: BMI 17.6
--- NOTE | 2023-04-16 18:10 | RAD_ITS ---
INDICATION: altered mental status EXAMINATION/TECHNIQUE: X-RAY - XR Chest 1 View COMPARISON: 12/10/2021. FINDINGS: Patchy consolidation in the left lower lobe. Tortuous and calcified thoracic aorta. The heart is mildly enlarged. No pleural effusion or pneumothorax. Degenerative changes of the thoracic spine. RAD/Chest 1 View (Portable) IMPRESSION: Left lower lobe pneumonia. Electronically Signed: Bernardo Vargas MD at 18:46 EDT ,
[2023-04-16 18:12] LABS: Absolute Lymphocyte Count 1.05 X10^3/uL (0.83-4.51); Absolute Neutrophil Count 7.8 X10^3/uL (2.0-7.7); Basophil# 0.04 X10^3/uL; Basophil% 0.4 % (0-1); Eosinophil# 0.01 X10^3/uL; Eosinophils% 0.1 % (0-5); Hematocrit 38.2 % (37-47); Hemoglobin 11.7 g/dL (12.0-15.0); Lymphocyte # 1.05 X10^3/ul (0.83-4.51); Lymphocyte % 10.8 % (19-41); Mean Corp Hgb Conc 30.6 g/dL (32-36); Mean Platelet Vol. 8.6 fl (6.2-12.0); Monocyte# 0.78 X10^3/uL; NRBC Flagged by Analyzer 0 % (0-5); Neutrophil # 7.79 X10^3/uL (2.7-7.7); Neutrophil % 80.3 % (47-70); Platelet Count 396 K/mm3 (150-450); RBC Distribution Width CV 13.2 % (11.6-14.6); RBC Distribution Width SD 42.4 fl (35.1-43.9); Red Blood Count 4.34 M/mm3 (4.2-5.4); White Blood Count 9.7 K/mm3 (4.4-11.0)
[2023-04-16 18:32] LABS: ALB/GLOB Ratio 0.8 RATIO (0.9-2.4); AST(SGOT) 18 U/L (15-37); Alanine Aminotransfer ALT/SGPT 17 U/L (13-56); Albumin, Serum 3.1 g/dL (3.2-5.0); Alkaline Phosphatase 117 U/L (45-117); Anion Gap 5 (5-15); BUN 14 mg/dL (7-18); BUN/Creat Ratio 14.7 RATIO (10-20); Calcium,Total 8.7 mg/dL (8.5-10.1); Chloride 101 mmol/L (98-107); Creatinine, Serum 0.95 mg/dL (0.55-1.02); EST Glomerular Filtration Rate 60 mL/min (>60); Est Glom Filt Rate - Afr Amer 72 mL/min (>60); Estimated Creatinine Clearance 34.69 ml/min; Globulin 3.9 g/dL (2.2-4.2); Glucose 100 mg/dL (74-106); Potassium 3.3 mmol/L (3.5-5.1); Sodium Level 135 mmol/L (136-145); Troponin-I HS 14 pg/mL (3.0-54.0)
[2023-04-16 18:38] LABS: Mucous, Urine 0 SEEN /hpf (<or=2+); Squamous Epithelial Cells - UA 0 SEEN /hpf (5-10)
[2023-04-16 18:41] LABS: Color, Urine Yellow (Yellow); Glucose, Dipstick Normal (Normal); Ketone-Dipstick Negative (Negative); Leukocyte Esterase-Dipstick 500 /ul (Negative); Nitrite-Dipstick Negative (Negative); Occult Blood-Urine 25 /ul (Negative); Protein-Dipstick 15 mg/dl (Negative); Urine Bilirubin Dipstick Negative (Negative); Urine Clarity Sl. Cloudy (Clear); Urine Urobilinogen Normal (Normal)
[2023-04-16] MEDS: Acetaminophen 500 MG Tablet 1000 MG PO (18:41)
[2023-04-16 18:51] VITALS: BP 106/90; PULSE 63; RESP 19; TEMP 38.6; O2SAT 94
[2023-04-16 19:00] LABS: Red Blood Cells-Urine 0-5 SEEN /hpf (0-5)
[2023-04-16 19:01] LABS: Bacteria 1+ /hpf (None Seen); White Blood Cells 10-25 SEEN /hpf (0-5)
--- NOTE | 2023-04-16 19:04 | EX.ED.DYSGE1 ---
HPI History of Present Illness Chief Complaint: Confusion Narrative Narrative: 83-year-old female presenting with altered mental status. Patient presents with her family. Patient is confused. Patient's family states she had a UTI last week and was treated with antibiotics but they do not know what kind. They state that really her symptoms started today with confusion. She is weak and cannot walk. They states she is not coughing or short of breath. She complains of dysuria. [facility] Medical History Acid reflux Acute UTI Anemia Anxiety Chronic low back pain Chronic pain Fall Fatigue Former smoker Fracture of left humerus History of ovarian cyst History of wrist fracture Hyperlipemia Hypertension Osteoporosis Post-nasal drainage Rhabdomyolysis Wears hearing aid in both ears Home Medications tramadol 50 mg tablet 50 mg PO Q8H PRN Pain 02/11/22 [History Last Taken Unknown] acetaminophen 325 mg capsule (Tylenol) 650 mg PO Q4H PRN pain 07/10/22 [History Last Taken Unknown] calcium citrate 250 mg calcium-vitamin D3 5 mcg (200 unit) tablet 1 tab PO TID Supplement #90 tabs 03/17/23 [Rx Last Taken Unknown] donepezil 10 mg tablet 10 mg PO QHS #30 tabs 03/17/23 [Rx Last Taken Unknown] memantine 10 mg tablet (Namenda) 10 mg PO BID #60 tabs 03/17/23 [Rx Last Taken Unknown] mirtazapine 7.5 mg tablet 7.5 mg PO QHS #30 tabs 03/17/23 [Rx Last Taken Unknown] pramipexole 0.5 mg tablet 0.5 mg PO QHS #30 tabs 03/17/23 [Rx Last Taken Unknown] propranolol 20 mg tablet 20 mg PO .COMPLEX #120 tabs 03/17/23 [Rx Last Taken Unknown] Allergy/AdvReac Type Severity Reaction Status Date / Time No Known Allergies Allergy Verified 04/16/23 17:08 Family History Grandmother Colon cancer Father Colon cancer Heart disease Brother Colon cancer Heart disease Mother Heart disease High cholesterol Surgical History History of carpal tunnel surgery of left wrist History of hip surgery History of orthopedic surgery Social History household members: none Smoking Status: Former smoker how long ago did patient quit smokin second hand exposure: No alcohol intake: never substance use type: does not use what type of physical activity do you participate in: other details: PT frequency: 1-2 times per week herrera/zoroastrian: Sabianism seatbelt use: always ROS ROS ED Constitutional Constitutional ED: Reports chills; Denies sweats Eyes Eyes: Denies blurry vision or change in vision ENT ENT ED: Denies ear pain or sore throat Cardiovascular Cardiovascular: Denies chest pain, palpitations or racing heartbeat Respiratory/Chest Respiratory/Chest: Denies cough, dyspnea or sputum Gastrointestinal Gastrointestinal: Reports abdominal pain; Denies constipation, diarrhea, nausea or vomiting Genitourinary Genitourinary ED: Reports dysuria; Denies hematuria or urinary frequency Musculoskeletal Musculoskeletal: Reports myalgias; Denies arthralgias or neck pain Integumentary Denies abscess, Abrasions or rash Neurologic Neurologic: Denies headache(s), paresthesias or weakness Psychiatric Psychiatric: Denies anxiety, depression, suicidal ideation or suicidal thoughts Endocrine Endocrinology: Denies polydipsia or polyuria EXAM Physical Exam Const Vital Signs: 04/16/23 17:08 04/16/23 17:17 04/16/23 18:51 Temperature 98 F 100.1 F H 101.4 F H Temperature Source Temporal Oral Temporal Pulse Rate 100 63 Respiratory Rate 20 H 19 H Blood Pressure 170/118 H 106/90 H Blood Pressure Mean 135 95 Pulse Ox 96 94 Oxygen Delivery Method Room Air Room Air General Appearance ED: NAD HEENT Reports moist mucous membranes Eyes PERRL and EOMs intact bilaterally Neck no lymphadenopathy Chest Wall inspection of chest normal and palpation of chest normal Resp normal respiratory effort and clear to auscultation bilaterally Auscultation: Negative for rales, rhonchi or wheezes Cardio regular rate and regular rhythm GI normal to inspection, nondistended, normoactive bowel sounds Back/Spine no CVA tenderness Neuro CN's II-XII intact bilaterally and no sensory deficits noted Sensorium / Orientation: alert and orientation impaired Motor Exam: general weakness Psych Psych Narrative: Confused MDM MDM MDM Narrative Medical decision making narrative: Patient presenting with confusion. She is a poor informant. Family states she is too weak to walk. She has history of UTI about a week ago which was treated with Macrobid after reviewing the record. Includes UTI, dehydration, electrolyte normalities, pneumonia, COVID, influenza, ACS. COVID and flu swab obtained. CBC to assess white blood cell count, hemoglobin, platelets. CMP to assess liver function, renal function, electrolytes. Urinalysis to assess for UTI. EKG to assess for dysrhythmia/ischemia as well as high-sensitivity troponin. Chest x-ray to rule out pneumonia. CBC shows a normal at that cell count of 9.7. Hemoglobin stable 11.7. Platelets are normal at 396. LFTs unremarkable. Renal function and electrolytes within normal limits. High-sensitivity troponin is 14. EKG on my interpretation shows a sinus rhythm at a ventricular rate of 67 bpm without sign of ischemic change. Left bundle branch block pattern noted. Chest x-ray my interpretation shows left lower lobe pneumonia. Urinalysis concerning for UTI. Patient given Rocephin and azithromycin. Family feels she is too weak to go home and she lives alone. Will discuss with the hospitalist for admission. Impression: 1. Debility 2. UTI 3. Pneumonia Lab Data Attestation: I reviewed the patient's lab results. Labs: Laboratory Results - last 24 hr 04/16/23 04/16/23 18:04 18:27 WBC 9.7 RBC 4.34 Hgb 11.7 L Hct 38.2 MCV 88.0 MCH 27.0 MCHC 30.6 L RDW Std Deviation 42.4 RDW Coeff of [place]iff[place] 13.2 Plt Count 396 MPV 8.6 Immature Gran % (Auto) 0.400 Neut % (Auto) 80.3 H Lymph % (Auto) 10.8 L [place] % (Auto) 8.0 Eos % (Auto) 0.1 Baso % (Auto) 0.4 Absolute Neuts (auto) 7.8 H Absolute Lymphs (auto) 1.05 Nucleated RBC % 0 Sodium 135 L Potassium 3.3 L Chloride 101 Carbon Dioxide 29.0 Anion Gap 5 BUN 14 Creatinine 0.95 Estim Creat Clear Calc 34.69 Est GFR (MDRD) Af Amer 72 Est GFR (MDRD) Non-Af 60 BUN/Creatinine Ratio 14.7 Glucose 100 Calcium 8.7 Magnesium 2.0 Total Bilirubin 0.50 AST 18 ALT 17 Alkaline Phosphatase 117 Troponin I High Sens 14 Total Protein 7.0 Albumin 3.1 L Globulin 3.9 Albumin/Globulin Ratio 0.8 L Urine Color Yellow Urine Clarity Sl. Cloudy Urine pH 7.0 Ur Specific [place] 1.010 Urine Protein 15 H Urine Glucose (UA) Normal Urine Ketones Negative Urine Occult Blood 25 H Urine Nitrite Negative Urine Bilirubin Negative Urine Urobilinogen Normal Ur Leukocyte Esterase 500 H Urine RBC 0-5 SEEN Urine WBC 10-25 SEEN Ur Squamous Epith Cells 0 SEEN Urine Bacteria 1+ Urine Mucus 0 SEEN Radiography Diagnostic Testing: Clinical Impression(s) from Imaging Studies Chest X-Ray 04/16/23 18:10 IMPRESSION: Left lower lobe pneumonia. Electronically Signed: Bernardo Vargas MD at 18:46 EDT , Discharge Plan Triage Chief Complaint: Confusion ED Provider: Nicholas Cohen Dx/Rx/DC Orders Primary Care Provider: Gogo Ro
[2023-04-16] MEDS: Azithromycin 500 MG in Dextrose 5%-Water (250mL Bag) 250 ML 250 MG IV (19:26)
--- NOTE | 2023-04-16 19:36 | PCM.HP.STD ---
HPI - General General Date of Admission: 04/16/23 Date of Service: 04/16/23 Chief Complaint: Confusion, weakness, debility. HPI Narrative The patient is an 83 y/o F w/ PMHx: Essential tremor, Allergic rhinitis, GERD, Chronic normocytic anemia/Fe deficiency anemia, Anxiety and Depression, Dementia unclear type with unclear behavioral disturbance history, Former tobacco use who presents to the [facility] ED on 04/16/23 with history of altered mentation brought in by the family with recent history of UTI the week prior treated with unclear type of abx therapy which was completed but today she had sudden onset increased confusion, increased weakness and malaise as well as ongoing dysuria prompting ED evaluation. She per family has not had marked cough or URI type symptoms nor any evidence of dyspnea. Work-up in the ED included T initially 98 with most recent repeat 101.4, heart initially 100 with most recent repeat 63, BP initially 170/118 with most recent repeat 106/90, respiratory rate 19-20, 94 to 96% on room air, CBC with WBC 9.7, hemoglobin 0.7, MCV 88, platelet 396 with left shift, CMP with sodium 135, potassium 3.3 otherwise unremarkable, troponin 14, urinalysis with cloudy appearing urine, specific remedy 1.010, protein 15, occult blood 25, negative nitrate, leukocyte Estrace 500 with urine WBCs 10-25 with 1+ urine bacteria, urine culture pending per ED, rapid SARS COVID and influenza antigens negative, chest x-ray with findings concerning for left lower lobe pneumonia with patchy consolidation noted. In the ED patient ministered Tylenol 1000 mg p.o. x1, normal saline as well as azithromycin and IV Rocephin. [facility] Medical History (Updated 04/16/23 @ 22:[address] Karon Nunes MD) Acid reflux Anemia Anxiety Chronic low back pain Cognitive decline Dementia Essential tremor Former smoker Fracture of left humerus GERD (gastroesophageal reflux disease) History of ovarian cyst History of wrist fracture Hyperlipemia Hypertension Osteoporosis Restless leg syndrome Wears hearing aid in both ears Home Medications tramadol 50 mg tablet 50 mg PO Q8H PRN Pain 02/11/22 [History Last Taken Unknown] acetaminophen 325 mg capsule (Tylenol) 650 mg PO Q4H PRN pain 07/10/22 [History Last Taken Unknown] calcium citrate 250 mg calcium-vitamin D3 5 mcg (200 unit) tablet 1 tab PO TID Supplement #90 tabs 03/17/23 [Rx Last Taken Unknown] donepezil 10 mg tablet 10 mg PO QHS #30 tabs 03/17/23 [Rx Last Taken Unknown] memantine 10 mg tablet (Namenda) 10 mg PO BID #60 tabs 03/17/23 [Rx Last Taken Unknown] mirtazapine 7.5 mg tablet 7.5 mg PO QHS #30 tabs 03/17/23 [Rx Last Taken Unknown] pramipexole 0.5 mg tablet 0.5 mg PO QHS #30 tabs 03/17/23 [Rx Last Taken Unknown] propranolol 20 mg tablet 20 mg PO .COMPLEX #120 tabs 03/17/23 [Rx Last Taken Unknown] Allergy/AdvReac Type Severity Reaction Status Date / Time No Known Allergies Allergy Verified 04/16/23 17:08 Family History Grandmother Colon cancer Father Colon cancer Heart disease Brother Colon cancer Heart disease Mother Heart disease High cholesterol Surgical History History of carpal tunnel surgery of left wrist History of hip surgery History of orthopedic surgery Social History household members: none Smoking Status: Former smoker how long ago did patient quit smokin second hand exposure: No alcohol intake: never substance use type: does not use what type of physical activity do you participate in: other details: PT frequency: 1-2 times per week herrera/cheondoism: Faith seatbelt use: always ROS Review of Systems ROS Unobtainable: due to encephalopathy Vital Signs Vital Signs Vital Signs: 04/16/23 17:08 04/16/23 17:17 04/16/23 18:51 Temperature 98 F 100.1 F H 101.4 F H Temperature Source Temporal Oral Temporal Pulse Rate 100 63 Respiratory Rate 20 H 19 H Blood Pressure 170/118 H 106/90 H Blood Pressure Mean 135 95 Pulse Ox 96 94 Oxygen Delivery Method Room Air Room Air Weight Weight: 106 lb 1.6 oz Body Mass Index (BMI) 17.6 Physical Exam Narrative Physical Examination: General: Awake, alert, oriented to self, son but is very fatigued and mildly lethargic, extremely hard of hearing, does remain cooperative, seated upright in the ED bed, frail and fatigued appearing. Skin: Normal color, normal turgor, no icterus, no cyanosis except for very staged occasional ecchymoses especially extremities. HEENT: AT/NC, EOMI, PERRLA, dry MM, no carotid bruits or JVD noted. Lungs: Diminished, greater bases, left potentially greater than right, decreased effort, no rales, ronchi or wheezing. Heart: Mildly tachycardic with regular rhythm; no gallop, rub audible. Abdomen: Soft, thin habitus, cachectic appearing, NTTP, ND, mildly hyperactive BS, no HSM. Extremities: No cyanosis or clubbing. Neurological: Patient awake, alert, oriented as noted, cognitive function decreased from baseline intact per discussion with patient's son who is present; pupils equally reactive to light and accommodation, cranial nerves grossly normal, moving all 4 extremities, no focal deficits, strength severely globally decreased secondary to acute presentation. Psychiatric: Affect appears flat, fatigued, no acute evidence of depressive or anxiety feelings but does have underlying history. Results Lab / Micro Data 04/16/23 18:04 04/16/23 18:04 Labs: Laboratory Results - last 24 hr 04/16/23 18:04: WBC 9.7, RBC 4.34, Hgb 11.7 L, Hct 38.2, MCV 88.0, MCH 27.0, MCHC 30.6 L, RDW Std Deviation 42.4, RDW Coeff of Tiffanie 13.2, Plt Count 396, MPV 8.6, Immature Gran % (Auto) 0.400, Neut % (Auto) 80.3 H, Lymph % (Auto) 10.8 L, Antelope % (Auto) 8.0, Eos % (Auto) 0.1, Baso % (Auto) 0.4, Absolute Neuts (auto) 7.8 H, Absolute Lymphs (auto) 1.05, Nucleated RBC % 0, Sodium 135 L, Potassium 3.3 L, Chloride 101, Carbon Dioxide 29.0, Anion Gap 5, BUN 14, Creatinine 0.95, Estim Creat Clear Calc 34.69, Est GFR (MDRD) Af Amer 72, Est GFR (MDRD) Non-Af 60, BUN/Creatinine Ratio 14.7, Glucose 100, Calcium 8.7, Total Bilirubin 0.50, AST 18, ALT 17, Alkaline Phosphatase 117, Troponin I High Sens 14, Total Protein 7.0, Albumin 3.1 L, Globulin 3.9, Albumin/Globulin Ratio 0.8 L 04/16/23 18:27: Urine Color Yellow, Urine Clarity Sl. Cloudy, Urine pH 7.0, Ur Specific [place] 1.010, Urine Protein 15 H, Urine Glucose (UA) Normal, Urine Ketones Negative, Urine Occult Blood 25 H, Urine Nitrite Negative, Urine Bilirubin Negative, Urine Urobilinogen Normal, Ur Leukocyte Esterase 500 H, Urine RBC 0-5 SEEN, Urine WBC 10-25 SEEN, Ur Squamous Epith Cells 0 SEEN, Urine Bacteria 1+, Urine Mucus 0 SEEN Micro: Microbiology 04/16/23 18:45 Nasal Secretion SARS-CoV-2 & FLU Antigen (Rapid) - Final Radiology Impression Chest X-Ray 04/16/23 18:10 IMPRESSION: Left lower lobe pneumonia. Electronically Signed: Bernardo Vargas MD at 18:46 EDT , Assessment & Plan Assessment/Plan (1) UTI (urinary tract infection): PLAN: Plan The patient is an 83 y/o F w/ PMHx: Essential tremor, Allergic rhinitis, GERD, Chronic normocytic anemia/Fe deficiency anemia, Anxiety and Depression, Dementia unclear type with unclear behavioral disturbance history, Former tobacco use who presents to the [facility] ED on 04/16/23 with history of altered mentation brought in by the family with recent history of UTI the week prior treated with unclear type of abx therapy which was completed but today she had sudden onset increased confusion, increased weakness and malaise as well as ongoing dysuria prompting ED evaluation. #1. Adult FTT and Acute Encephalopathy, multifactorial, secondary to Left lower lobe pneumonia, community-acquired and concurrent #2: We will admit to medical surgical floor, supplemental oxygen as needed however currently appropriate on room air, PRN albuterol, maintained on IV Rocephin and azithromycin, HOB, IS parameters w/ pending sputum cultures, full respiratory viral panel and urine antigens. PT/OT/case management consultation for discharge planning #2. Acute Urinary Tract Infection with recent diagnosis week prior, treated with abx therapy, possibly failed outpatient treatment, unclear prior organism or sensitivies: UA upon ED evaluation remarkable, pending UCx, continue IVFs, monitor I/Os, continue IV Rocephin as noted above w/ transition as able pending sensitivities and speciation. #3. Hypokalemia: Admission K+ 3.3, magnesium level requested, supplementation given, repeat level in AM. #4. Dementia, unclear type with unclear behavioral disturbance history: Complicates presentation, continue patient home donepezil as well as memantine home regimen, maintain on fall and aspiration precautions, PT/OT/case management consulted for discharge planning. #5. Anxiety and depression: We will continue patient home mirtazapine regimen. #6. Essential tremor: We will continue patient home propranolol low-dose regimen. #7. Restless leg syndrome: We will continue patient home pramipexole regimen. #8. Chronic normocytic anemia/iron deficiency anemia: Admission hemoglobin 11.7, MCV 88, baseline hemoglobin primarily 10-11, stable, continue to trend, currently noted history also of iron deficiency anemia not on any chronic regimen, encourage continued outpatient assessments. #9. GERD: Per list not on chronic regimen, will have as needed Mylanta. #10. DVT prophylaxis: Lovenox. #11. CODE status: Patient CIRO is her son who is present and living will is currently in place. Discussed CODE status at length including difference between FULL code, DNR-CCA and DNR-CC status. Following discussions about the differences in these status, requested DNR-CCA, no intubation status. Advanced Care Planning Face to Face Time: 16 minutes. Charges/Coding Visit Charges Inpatient E&M: 84627 Init Hosp L3 Procedures Hospitalists Procedures: 57153 Advncd Care Plan 30 Min
[2023-04-16 21:25] VITALS: BMI 17.6
[2023-04-16 21:53] VITALS: BP 87/49; PULSE 104; RESP 16; TEMP 36.4; O2SAT 95
[2023-04-16] MEDS: Ceftriaxone 1 GM/50 ML BAG IV (22:17)
[2023-04-16] MEDS: 0.9% Normal Saline (1000mL) 1,000 ML 999 ML IV (22:17)
[2023-04-16] MEDS: Mirtazapine 15 MG Tablet 7.5 MG PO (22:30)
[2023-04-16] MEDS: Memantine Hydrochloride 10 MG Tablet PO (22:31)
[2023-04-16] MEDS: Pramipexole Di-HCl 0.5 MG Tablet PO (22:31)
[2023-04-16] MEDS: Donepezil HCl 10 MG Tablet PO (22:31)
[2023-04-16] MEDS: Menthol/Lanolin/Calamine/Znox 113 GM Tube 1 APPLIC TOPICAL (23:25)
[2023-04-16] MEDS: Potassium Chloride Oral Tablet 20 MEQ 40 MEQ PO (23:52)
[2023-04-16 23:58] VITALS: BP 87/41; PULSE 54; RESP 18; TEMP 36.8; O2SAT 97
[2023-04-17 03:31] VITALS: BP 97/66; PULSE 58; RESP 20; TEMP 37.4; O2SAT 97
[2023-04-17 06:00] VITALS: BMI 18.0
[2023-04-17 07:12] LABS: Absolute Lymphocyte Count 0.94 X10^3/uL (0.83-4.51); Absolute Neutrophil Count 5.1 X10^3/uL (2.0-7.7); Basophil# 0.04 X10^3/uL; Basophil% 0.6 % (0-1); Eosinophil# 0.04 X10^3/uL; Eosinophils% 0.6 % (0-5); Hematocrit 32.4 % (37-47); Hemoglobin 9.9 g/dL (12.0-15.0); Lymphocyte # 0.94 X10^3/ul (0.83-4.51); Lymphocyte % 13.6 % (19-41); Mean Corp Hgb Conc 30.6 g/dL (32-36); Mean Corpuscular Hgb 27.3 pg (27.0-32.0); Mean Corpuscular Volume 89.5 fL (81-99); Monocyte# 0.78 X10^3/uL; Monocyte% 11.3 % (0-10); NRBC Flagged by Analyzer 0 % (0-5); Neutrophil # 5.08 X10^3/uL (2.7-7.7); Neutrophil % 73.6 % (47-70); Platelet Count 302 K/mm3 (150-450); RBC Distribution Width CV 13.3 % (11.6-14.6); RBC Distribution Width SD 43.8 fl (35.1-43.9); Red Blood Count 3.62 M/mm3 (4.2-5.4); White Blood Count 6.9 K/mm3 (4.4-11.0)
--- NOTE | 2023-04-17 07:28 | PCM.PN.HOSP ---
Reason for Visit Reason for Visit: Diagnoses Urinary tract infection, site not specified (04/16/23) Objective Data Objective Data Vital Signs: Vital Signs Temp Pulse Resp BP Pulse Ox O2 Del Method 99.3 F H 58 L 20 H 97/66 97 Room Air 04/17/23 03:31 04/17/23 03:31 04/17/23 03:31 04/17/23 03:31 04/17/23 03:31 04/17/23 03:36 Oxygen Delivery Method Room Air Weight: 106 lb 1.383 oz Body Mass Index (BMI) 17.6 Intake & Output: Intake and Output for Last 24 Hours 04/15/23 04/16/23 04/17/23 23:59 23:59 23:59 Intake Total 1305 / 1305 Output Total 400 / 400 Balance 1305 / 905 -400 / -400 Lab / Micro Data 04/17/23 06:30 04/17/23 06:30 Labs: Laboratory Results - last 24 hr 04/16/23 18:04: WBC 9.7, RBC 4.34, Hgb 11.7 L, Hct 38.2, MCV 88.0, MCH 27.0, MCHC 30.6 L, RDW Std Deviation 42.4, RDW Coeff of Tiffanie 13.2, Plt Count 396, MPV 8.6, Immature Gran % (Auto) 0.400, Neut % (Auto) 80.3 H, Lymph % (Auto) 10.8 L, Greene % (Auto) 8.0, Eos % (Auto) 0.1, Baso % (Auto) 0.4, Absolute Neuts (auto) 7.8 H, Absolute Lymphs (auto) 1.05, Nucleated RBC % 0, Sodium 135 L, Potassium 3.3 L, Chloride 101, Carbon Dioxide 29.0, Anion Gap 5, BUN 14, Creatinine 0.95, Estim Creat Clear Calc 34.69, Est GFR (MDRD) Af Amer 72, Est GFR (MDRD) Non-Af 60, BUN/Creatinine Ratio 14.7, Glucose 100, Calcium 8.7, Magnesium 2.0, Total Bilirubin 0.50, AST 18, ALT 17, Alkaline Phosphatase 117, Troponin I High Sens 14, Total Protein 7.0, Albumin 3.1 L, Globulin 3.9, Albumin/Globulin Ratio 0.8 L 04/16/23 18:27: Urine Color Yellow, Urine Clarity Sl. Cloudy, Urine pH 7.0, Ur Specific [place] 1.010, Urine Protein 15 H, Urine Glucose (UA) Normal, Urine Ketones Negative, Urine Occult Blood 25 H, Urine Nitrite Negative, Urine Bilirubin Negative, Urine Urobilinogen Normal, Ur Leukocyte Esterase 500 H, Urine RBC 0-5 SEEN, Urine WBC 10-25 SEEN, Ur Squamous Epith Cells 0 SEEN, Urine Bacteria 1+, Urine Mucus 0 SEEN 04/17/23 06:30: WBC 6.9, RBC 3.62 L, Hgb 9.9 L, Hct 32.4 L, MCV 89.5, MCH 27.3, MCHC 30.6 L, RDW Std Deviation 43.8, RDW Coeff of Tiffanie 13.3, Plt Count 302, MPV 9.0, Immature Gran % (Auto) 0.300, Neut % (Auto) 73.6 H, Lymph % (Auto) 13.6 L, Greene % (Auto) 11.3 H, Eos % (Auto) 0.6, Baso % (Auto) 0.6, Absolute Neuts (auto) 5.1, Absolute Lymphs (auto) 0.94, Nucleated RBC % 0 Micro: Microbiology 04/16/23 23:15 Mucosa - Nasopharyngeal Respiratory Panel (PCR) - Final 04/16/23 23:20 Urine, Clean Catch Legionella Antigen - Final 04/16/23 23:20 Urine, Clean Catch Streptococcus pneumoniae Antigen (M - Final 04/16/23 18:45 Nasal Secretion SARS-CoV-2 & FLU Antigen (Rapid) - Final Radiography Diagnostic Testing: Radiology Impression Chest X-Ray 04/16/23 18:10 IMPRESSION: Left lower lobe pneumonia. Electronically Signed: Bernardo Vargas MD at 18:46 EDT , Physical Exam Narrative Seen and examined. Patient is very hard of hearing and reads lips uses hearing aid. Mild shortness of breath. No hypoxia. Physical exam General: Alert, Oriented x3, Cooperative HEENT: Atraumatic, PERRLA, EOMI, Normocephalic Oral: Oral mucosa moist no Gingival or Mucosal Lesions/ Ulcerations Neck: Supple, No JVD, Negative Carotid Bruits Lungs: Air entry diminished in bilateral lung bases. Mild expiratory rhonchi and crepitations Cardiovascular: Regular rate, Regular Rhythm, Normal S1, Normal S2, systolic murmur LLSB Abdomen: Bowel Sounds Present, Soft, Non Tender, Non-Distended : No renal angle tenderness. No suprapubic tenderness. Extremities: No edema, Capillary Refill Less than 3 Seconds Skin: No rashes, No breakdown Musculoskeletal: No Tenderness to Palpation of Joints or Extremities Neurological: Cranial nerves II-XII grossly intact, DTR 2+/4. No acute focal neurological deficit. Psych/Mental Status: Flat affect. Assessment & Plan Assessment/Plan (1) UTI (urinary tract infection): QUALIFIERS: Urinary tract infection type: acute cystitis PLAN: Plan The patient is an 83 y/o F [facility] ED on 04/16/23 with history of altered mentation brought in by the family with recent history of UTI the week prior treated with antibiotic unclear was admitted with increased confusion, generalized weakness malaise and ongoing dysuria/burning micturition. Chest x-ray initially reviewed and shows left lower lobe infiltrates, new since last chest x-ray on on 12/10/2021. #1. Adult FTT and Acute Encephalopathy, multifactorial, secondary to Left lower lobe pneumonia, community-acquired and UTI: We will admit to medical surgical floor, supplemental oxygen as needed however currently appropriate on room air, PRN albuterol, maintained on IV Rocephin and azithromycin, HOB, IS parameters. Respiratory panel active. Urinary antigens are negative. Flu and SARS-CoV-2 antigens are negative. Continue IV ceftriaxone and Zithromax. #2. Acute Urinary Tract Infection/cystitis, failed outpatient antibiotic although unclear what antibiotic: Urine culture shows presumptive E. coli. Continue IV antibiotic. #3. Hypokalemia: Admission K+ 3.3, potassium is getting replaced. Repeat potassium 3.8. Serum magnesium normal. #4. Dementia, unclear type with unclear behavioral disturbance history: Complicates presentation, continue patient home donepezil as well as memantine home regimen, maintain on fall and aspiration precautions, PT/OT/case management consulted for discharge planning. #5. Anxiety and depression: We will continue patient home mirtazapine regimen. #6. Essential tremor: We will continue patient home propranolol low-dose regimen. #7. Restless leg syndrome: We will continue patient home pramipexole regimen. #8. Chronic normocytic anemia/iron deficiency anemia: Admission hemoglobin 11.7, MCV 88, baseline hemoglobin primarily 10-11, stable, continue to trend, currently noted history also of iron deficiency anemia not on any chronic regimen, encourage continued outpatient assessments. #9. GERD: Per list not on chronic regimen, will have as needed Mylanta. #10. DVT prophylaxis: Lovenox. #11. CODE status: Patient CIRO is her son who is present and living will is currently in place. Discussed CODE status at length including difference between FULL code, DNR-CCA and DNR-CC status. Following discussions about the differences in these status, requested DNR-CCA, no intubation status. Advanced Care Planning Active Medications Acetaminophen (Acetaminophen 325 Mg Tablet) 650 mg PO Q4H PRN PRN PRN Reason: Fever, pain -03/24 Last Admin: 04/17/23 08:33 Dose: 650 mg Al Hydroxide/Mg Hydroxide (Mag Hydrox/Al Hydrox/Simeth 30 Ml Udc) 30 ml PO Q6H PRN PRN PRN Reason: Gastric Burning Albuterol Sulfate (Albuterol 2.5 Mg/3 Ml Vial.Neb.) 2.5 mg INHALATION Q2H PRN PRN PRN Reason: Dyspnea, wheezing Calamine/Phenol (Menthol/Lanolin/Calamine/Znox 113 Gm Tube) 1 applic TOPICAL 4X/DAY SAUD; Protocol Last Admin: 04/17/23 13:58 Dose: 1 applic Donepezil HCl (Donepezil Hcl 10 Mg Tablet) 10 mg PO QHS SAUD Last Admin: 04/16/23 22:31 Dose: 10 mg Guaifenesin (Guaifenesin 10 Ml Udc (200mg/10ml)) 20 ml PO Q4H PRN PRN PRN Reason: COUGH Hydralazine HCl (Hydralazine 20 Mg/Ml Vial) 10 mg IV Q4H PRN PRN; Protocol PRN Reason: SBP > 160 Sodium Chloride () 250 mls @ 15 mls/hr IV .[id number] PRN PRN Reason: Additional IVPB Infusion Sodium Chloride () 250 mls @ 15 mls/hr IV .[id number] PRN PRN Reason: Saline Flush Ceftriaxone Sodium (Rocephin) 1 gm in 50 mls @ 100 mls/hr IV Q24H [facility] Azithromycin 500 mg/ Dextrose 255 mls @ 250 mls/hr IV Q24H [facility] Melatonin (Melatonin 3 Mg Tablet) 3 mg PO QHS PRN PRN PRN Reason: INSOMNIA Memantine (Memantine Hydrochloride 10 Mg Tablet) 10 mg PO BID [facility] Last Admin: 04/17/23 08:31 Dose: 10 mg Mirtazapine (Mirtazapine 15 Mg Tablet) 7.5 mg PO QHS [facility] Last Admin: 04/16/23 22:30 Dose: 7.5 mg Nutritional Formula (Lactose Free) (Ensure Plus High Protein 120 Ml Liquid) 120 ml PO 4X/DAY [facility] Last Admin: 04/17/23 13:58 Dose: 120 ml Ondansetron HCl (Ondansetron 4 Mg/2 Ml Vial) 4 mg IV Q8H PRN PRN PRN Reason: NAUSEA/VOMITING Pramipexole Dihydrochloride (Pramipexole Di-Hcl 0.5 Mg Tablet) 0.5 mg PO QHS [facility] Last Admin: 04/16/23 22:31 Dose: 0.5 mg Prochlorperazine Edisylate (Prochlorperazine 10 Mg/2 Ml Vial) 5 mg IV Q4H PRN PRN PRN Reason: Breakthrough nausea/vomiting Propranolol HCl (Propranolol 40 Mg Tablet) 40 mg PO 0600 [facility] Last Admin: 04/17/23 04:09 Dose: Not Given Propranolol HCl (Propranolol 10 Mg Tablet) 20 mg PO 1200,1700 [facility] Last Admin: 04/17/23 12:48 Dose: 20 mg Senna/Docusate Sodium (Senna/Docusate Sodium 1 Tablet) 2 tablet PO BID PRN PRN PRN Reason: Constipation Sodium Chloride (0.9% Saline Lock 10 Ml Syringe) 10 - 40 ml IV UD PRN PRN Reason: SALINE FLUSH Tramadol HCl (Tramadol 50 Mg Tablet) 50 mg PO Q8H PRN PRN PRN Reason: Pain Score 4-10 Charges/Coding Visit Charges Inpatient E&M: 01250 Subs Hosp L2
[2023-04-17 07:38] LABS: ALB/GLOB Ratio 0.8 RATIO (0.9-2.4); AST(SGOT) 16 U/L (15-37); Alanine Aminotransfer ALT/SGPT 12 U/L (13-56); Albumin, Serum 2.5 g/dL (3.2-5.0); Alkaline Phosphatase 101 U/L (45-117); Anion Gap 5 (5-15); BUN 10 mg/dL (7-18); BUN/Creat Ratio 11.4 RATIO (10-20); Calcium,Total 7.9 mg/dL (8.5-10.1); Chloride 108 mmol/L (98-107); Creatinine, Serum 0.88 mg/dL (0.55-1.02); EST Glomerular Filtration Rate 66 mL/min (>60); Est Glom Filt Rate - Afr Amer 79 mL/min (>60); Estimated Creatinine Clearance 37.44 ml/min; Globulin 3.3 g/dL (2.2-4.2); Glucose 86 mg/dL (74-106); Potassium 3.8 mmol/L (3.5-5.1); Protein, Total 5.8 g/dL (6.4-8.2); Sodium Level 138 mmol/L (136-145)
--- NOTE | 2023-04-17 07:50 | CPS ---
Pt absolutely refused I.S. & PEP, says she is fine without them.
[2023-04-17 07:55] VITALS: O2SAT 95
[2023-04-17] MEDS: Memantine Hydrochloride 10 MG Tablet PO ×2 (08:31→21:08)
[2023-04-17] MEDS: Acetaminophen 325 MG Tablet 650 MG PO ×2 (08:33→21:09)
[2023-04-17] MEDS: Potassium Chloride Oral Tablet 20 MEQ 40 MEQ PO (08:33)
[2023-04-17] MEDS: Ensure Plus High Protein 120 ML LIQUID PO ×4 (08:34→21:10)
[2023-04-17] MEDS: Menthol/Lanolin/Calamine/Znox 113 GM Tube 1 APPLIC TOPICAL ×4 (08:40→21:08)
[2023-04-17 09:03] VITALS: BP 133/68; PULSE 59; RESP 16; TEMP 38; O2SAT 96
--- NOTE | 2023-04-17 11:14 | NURSING ---
talked with Rubina plastic tubing insulation supervisor in dietary as pt verbalized frustration didn't get breakfast until almost 11:00= nonselect in order.
--- NOTE | 2023-04-17 11:15 | CASEMGMT ---
CAMDEN ADKINS Assessment: Face to Face with pt for initial transition planning/care coordination assessment. CAMDEN ADKINS introduced self and role at [facility], pt voices understanding and consents to assessment. Pt is A&O x4 and answers all questions appropriately at this time. Pt sitting on edge of bed eating a muffin in no distress. Assessment completed with combined interview from pt and t/c with son. Care providers, pharmacy, and demographics verified/updated. Admitting Dx: pna, UTI, adult FTT PCP:Jayjay Specialists:Joyce, neuro; pain mgmt in [place] Preferred Pharmacy: [facility] Insurance: [employer] [facility] Prescription Benefit: yes LNOK: Kwesi Bullard, son Living Arrangements: Pt lives alone in a condo with a 1/2 step/threshhold to enter. Pt reports she is I in ADL's. Pt has an Taoism lady who does cleaning twice a week. Pt son stops by daily and brings meals and gives pt her pain meds. Pt has meds in pill pods. Pt denies concerns at home. Pt goes to the [facility] twice weekly for physical therapy Pt states she just wants to go home. She does not want any services at home and pt son denies need for any services as well. Spoke with therapy who states pt is safe to return home with cane. Transportation: Pt family provides transportation. DME:cane HHC/SNF:Denies HHC, [facility] Pt states no concerns with going home at time of dc. Pt son asks that pt ears be checked out as he feels she has wax buildup that effects her communication. Updated hospitalist. Pt states no further concerns/needs. CM to follow. Advised pt to ask CM if any further question/concerns/needs arise, voices understanding. Pt Goal: Home Plan: Home with assistance of son, resuming therapy at [facility]
[2023-04-17 11:35] VITALS: BP 101/58; PULSE 59; RESP 16; TEMP 36.4; O2SAT 97
[2023-04-17] MEDS: Propranolol 10 MG Tablet 20 MG PO ×2 (12:48→17:39)
[2023-04-17 15:43] VITALS: BP 123/57; PULSE 65; RESP 16; TEMP 37.1; O2SAT 94
[2023-04-17 20:00] VITALS: BP 120/55; PULSE 70; RESP 16; TEMP 37.9; O2SAT 95
[2023-04-17] MEDS: Ceftriaxone 1 GM/50 ML BAG IV (21:06)
[2023-04-17] MEDS: Donepezil HCl 10 MG Tablet PO (21:08)
[2023-04-17] MEDS: Mirtazapine 15 MG Tablet 7.5 MG PO (21:08)
[2023-04-17] MEDS: Pramipexole Di-HCl 0.5 MG Tablet PO (21:08)
[2023-04-17] MEDS: MELATONIN 3 MG TABLET PO (21:09)
[2023-04-17] MEDS: Azithromycin 500 MG in Dextrose 5%-Water (250mL Bag) 250 ML 250 MG IV (23:14)
[2023-04-18] VITALS (7 sets, daily range): BP systolic 107–143; BP diastolic 56–97; PULSE 61–79; RESP 18–20; TEMP 36.3–37.3; O2SAT 93–97; BMI 18.0
--- NOTE | 2023-04-18 06:31 | NURSING ---
Patient refusing morning medication, stating she does not know where she is and she is not doing anything until she goes home. This RN attempted to reorient patient and educate on medications.
--- NOTE | 2023-04-18 09:59 | PN.HOSP_ITS ---
Reason for Visit Reason for Visit: Diagnoses Urinary tract infection, site not specified (04/16/23) Objective Data Objective Data Vital Signs: Vital Signs Temp Pulse Resp BP Pulse Ox O2 Del Method 99.1 F 63 18 143/97 H 97 Room Air 04/18/23 02:29 04/18/23 02:29 04/18/23 02:29 04/18/23 02:29 04/18/23 02:29 04/18/23 02:47 Oxygen Delivery Method Room Air Weight: 108 lb 3.951 oz Body Mass Index (BMI) 18.0 Intake & Output: Intake and Output for Last 24 Hours 04/16/23 04/17/23 04/18/23 23:59 23:59 23:59 Intake Total 1305 / 1305 500 / 500 455 / 455 Output Total 400 / 400 Balance 1305 / 905 100 / 100 455 / 455 Medical Nutrition Assessment Dietitian: Malnutrition Criteria Met Start: 04/17/23 11:22 Freq: Status: Active Protocol: Document 04/17/23 11:22 SLA (Rec: 04/17/23 11:22 SLA Desktop) Nutrition Malnutrition Evidence of Malnutrition Exists Yes Malnutrition (severe): Chronic Evidenced By Suboptimal Energy Intake ( Severe),Weight Loss (Severe), Physical Changes (Moderate) Clinical Problem Chronic Disease or Condition Related Malnutrition Etiology related to dementia and inadequate energy intake Signs/Symptoms as evidenced by 15.5% unintended wt loss and po intake meeting <50% of est nutritional needs within past 14 months - has fat/muscle loss throughout body; BMI = 18 .0 Status Active Problem Recommendation Dietitian Recommendations/Changes Will change diet to Regular NONSELECT d/t dementia Will continue ensure plus high protein 4x/day w/ medpass Continue appetite stimulant Provide set up assist at meals Lab / Micro Data 04/17/23 06:30 04/17/23 06:30 Micro: Microbiology 04/16/23 18:27 Urine Catheter - Catheter Urine Culture - Final Presumptive E. coli 04/16/23 23:15 Mucosa - Nasopharyngeal Respiratory Panel (PCR) - Final 04/16/23 23:20 Urine, Clean Catch Legionella Antigen - Final 04/16/23 23:20 Urine, Clean Catch Streptococcus pneumoniae Antigen (M - Final 04/16/23 18:45 Nasal Secretion SARS-CoV-2 & FLU Antigen (Rapid) - Final Physical Exam Narrative Seen and examined. Patient had a low-grade fever Tmax 100.2 Fahrenheit. She states he has cough but could not say whether she is having sputum production or not. Patient is very hard of hearing and reads lips uses hearing aid. Mild shortness of breath. No hypoxia. Physical exam General: Alert, Oriented x3, Cooperative HEENT: Atraumatic, PERRLA, EOMI, Normocephalic Oral: Oral mucosa moist no Gingival or Mucosal Lesions/ Ulcerations Neck: Supple, No JVD, Negative Carotid Bruits Lungs: Air entry diminished in bilateral lung bases. Mild expiratory rhonchi and crepitations Cardiovascular: Regular rate, Regular Rhythm, Normal S1, Normal S2, systolic murmur LLSB Abdomen: Bowel Sounds Present, Soft, Non Tender, Non-Distended : No renal angle tenderness. No suprapubic tenderness. Extremities: No edema, Capillary Refill Less than 3 Seconds Skin: No rashes, No breakdown Musculoskeletal: No Tenderness to Palpation of Joints or Extremities Neurological: Cranial nerves II-XII grossly intact, DTR 2+/4. No acute focal neurological deficit. Psych/Mental Status: Flat affect. Assessment & Plan Assessment/Plan (1) UTI (urinary tract infection): QUALIFIERS: Urinary tract infection type: acute cystitis Hematuria presence: without hematuria Qualified Code(s): N30.00 - Acute cystitis without hematuria PLAN: Plan The patient is an 83 y/o F [facility] ED on 04/16/23 with history of altered mentation brought in by the family with recent history of UTI the week prior treated with antibiotic unclear was admitted with increased confusion, generalized weakness malaise and ongoing dysuria/burning micturition. Chest x-ray initially reviewed and shows left lower lobe infiltrates, new since last chest x-ray on on 12/10/2021. #1. Adult FTT and Acute Encephalopathy, multifactorial, secondary to Left lower lobe pneumonia, community-acquired and UTI: We will admit to medical surgical floor, supplemental oxygen as needed however currently appropriate on room air, PRN albuterol, maintained on IV Rocephin and azithromycin, HOB, IS parameters. Respiratory panel active. Urinary antigens are negative. Flu and SARS-CoV-2 antigens are negative. Continue IV ceftriaxone and Zithromax. 04/18: Patient is still having low-grade fever and cough.Pulse ox 97% on room air. No fever in next 24 hours, anticipate discharge. #2. Acute Urinary Tract Infection/cystitis, failed outpatient antibiotic although unclear what antibiotic: Urine culture shows presumptive E. coli. Continue IV antibiotic. 04/18: Urine culture Bartholomew reported. E. coli [id number] E. coli, ramon sensitivity sensitivity available. Continue IV ceftriaxone. #3. Hypokalemia: Admission K+ 3.3, potassium is getting replaced. Repeat potassium 3.8. Serum magnesium normal. #4. Dementia, unclear type with unclear behavioral disturbance history: Complicates presentation, continue patient home donepezil as well as memantine home regimen, maintain on fall and aspiration precautions, PT/OT/case management consulted for discharge planning. #5. Anxiety and depression: continue patient home mirtazapine regimen. #6. Essential tremor: continue patient home propranolol low-dose regimen. #7. Restless leg syndrome: continue patient home pramipexole regimen. #8. Chronic normocytic anemia/iron deficiency anemia: Admission hemoglobin 11.7, MCV 88, baseline hemoglobin primarily 10-11, stable, continue to trend, currently noted history also of iron deficiency anemia not on any chronic regimen, encourage continued outpatient assessments. #9. GERD: Per list not on chronic regimen, will have as needed Mylanta. #10. DVT prophylaxis: Lovenox. #11. CODE status: Patient CIRO is her son who is present and living will is currently in place. Discussed CODE status at length including difference between FULL code, DNR-CCA and DNR-CC status. Following discussions about the differences in these status, requested DNR-CCA, no intubation status. Advanced Care Planning Charges/Coding Visit Charges Inpatient E&M: 59071 Subs Hosp L2
[2023-04-18] MEDS: Memantine Hydrochloride 10 MG Tablet PO ×2 (10:07→20:18)
[2023-04-18] MEDS: Ensure Plus High Protein 120 ML LIQUID PO ×3 (10:07→20:49)
[2023-04-18] MEDS: Menthol/Lanolin/Calamine/Znox 113 GM Tube 1 APPLIC TOPICAL ×3 (10:07→20:49)
[2023-04-18] MEDS: Propranolol 10 MG Tablet 20 MG PO ×2 (13:27→17:11)
[2023-04-18] MEDS: Acetaminophen 325 MG Tablet 650 MG PO (15:04)
[2023-04-18] MEDS: traMADol 50 MG Tablet PO (20:18)
[2023-04-18] MEDS: Donepezil HCl 10 MG Tablet PO (20:19)
[2023-04-18] MEDS: Mirtazapine 15 MG Tablet 7.5 MG PO (20:19)
[2023-04-18] MEDS: 0.9% Saline Lock 10 ML Syringe IV (20:20)
[2023-04-18] MEDS: Ceftriaxone 1 GM/50 ML BAG IV (20:20)
[2023-04-18] MEDS: Pramipexole Di-HCl 0.5 MG Tablet PO (20:20)
[2023-04-18] MEDS: Azithromycin 500 MG in Dextrose 5%-Water (250mL Bag) 250 ML 250 MG IV (23:26)
[2023-04-19 04:19] VITALS: BP 127/76; PULSE 83; RESP 18; TEMP 36.8; O2SAT 94
[2023-04-19] MEDS: Propranolol 40 MG Tablet PO (04:21)
[2023-04-19] MEDS: QUEtiapine 25 MG Tablet PO ×2 (07:00→21:32)
[2023-04-19 07:35] VITALS: O2SAT 94
[2023-04-19 07:36] VITALS: BP 117/72; PULSE 79; RESP 18; TEMP 36.6; O2SAT 95
--- NOTE | 2023-04-19 07:55 | NURSING ---
Patient was awake all night. She did not sleep at all. Around 0600 patient began to get combative. She swung and kicked at nursing staff. This RN called her son, Kwesi, around 0645 to give him an update. He planned to get ready and come in to see her.
--- NOTE | 2023-04-19 07:56 | NURSING ---
Patient restless and confused. Suspicious of staff. Patient is sitting in a wheelchair at nurses' station with this RN sitting next to her. Patient's son was called to help calm patient down.
--- NOTE | 2023-04-19 08:57 | PCM.PN.HOSP ---
Subjective Subjective No issues overnight, she is hard of hearing. Son is concerned about repeated episodes of UTIs and delirium. Discussed that in her age group UTIs to some degree are inevitable but she is also here for new onset pneumonia Objective Data Objective Data Vital Signs: Vital Signs Temp Pulse Resp BP Pulse Ox O2 Del Method 98 F 79 18 117/72 95 Room Air 04/19/23 07:36 04/19/23 07:36 04/19/23 07:36 04/19/23 07:36 04/19/23 07:36 04/19/23 07:36 Oxygen Delivery Method Room Air Weight: 108 lb 3.951 oz Body Mass Index (BMI) 18.0 Intake & Output: Intake and Output for Last 24 Hours 04/18/23 04/19/23 04/20/23 04:59 03:59 03:59 Intake Total Output Total Balance Medical Nutrition Assessment Dietitian: Malnutrition Criteria Met Start: 04/17/23 11:22 Freq: Status: Active Protocol: Document 04/17/23 11:22 NITZA (Rec: 04/17/23 11:22 SLA Desktop) Nutrition Malnutrition Evidence of Malnutrition Exists Yes Malnutrition (severe): Chronic Evidenced By Suboptimal Energy Intake ( Severe),Weight Loss (Severe), Physical Changes (Moderate) Clinical Problem Chronic Disease or Condition Related Malnutrition Etiology related to dementia and inadequate energy intake Signs/Symptoms as evidenced by 15.5% unintended wt loss and po intake meeting <50% of est nutritional needs within past 14 months - has fat/muscle loss throughout body; BMI = 18 .0 Status Active Problem Recommendation Dietitian Recommendations/Changes Will change diet to Regular NONSELECT d/t dementia Will continue ensure plus high protein 4x/day w/ medpass Continue appetite stimulant Provide set up assist at meals Lab / Micro Data 04/17/23 06:30 04/17/23 06:30 Micro: Microbiology 04/16/23 18:27 Urine Catheter - Catheter Urine Culture - Final Presumptive E. coli 04/16/23 23:15 Mucosa - Nasopharyngeal Respiratory Panel (PCR) - Final 04/16/23 23:20 Urine, Clean Catch Legionella Antigen - Final 04/16/23 23:20 Urine, Clean Catch Streptococcus pneumoniae Antigen (M - Final 04/16/23 18:45 Nasal Secretion SARS-CoV-2 & FLU Antigen (Rapid) - Final Physical Exam Narrative General: Alert, Oriented x3, Cooperative, No apparent distress HEENT: Atraumatic, PERRLA, EOMI, Normocephalic, hard of hearing Oral: Moist Mucosa Neck: Supple, No JVD Lungs: Diminished, Normal air movement, rhonchi, No wheeze, No rales Cardiovascular: Regular rate, Regular Rhythm, Normal S1, Normal S2, No murmurs Abdomen: Soft, Non Tender, Non-Distended, No Hepato-splenomegaly Extremities: No edema, Capillary Refill Less than 3 Seconds Skin: No rashes, No breakdown Musculoskeletal: No Tenderness to Palpation of Joints or Extremities Neurological: Moves all extremities, Sensory exam intact to light touch and pain Psych/Mental Status: Normal Affect, Appropriate Assessment & Plan Assessment/Plan (1) UTI (urinary tract infection): QUALIFIERS: Urinary tract infection type: acute cystitis Hematuria presence: without hematuria Qualified Code(s): N30.00 - Acute cystitis without hematuria PLAN: Plan #1. Adult FTT and Acute Encephalopathy, multifactorial, secondary to Left lower lobe pneumonia, community-acquired and UTI: We will admit to medical surgical floor, supplemental oxygen as needed however currently appropriate on room air, PRN albuterol, maintained on IV Rocephin and azithromycin, HOB, IS parameters. Respiratory panel active. Urinary antigens are negative. Flu and SARS-CoV-2 antigens are negative. Continue IV ceftriaxone and Zithromax. 04/18: Patient is still having low-grade fever and cough.Pulse ox 97% on room air. No fever in next 24 hours, anticipate discharge. 04/19/2023: Son is concerned about plan for discharge today he would like to continue with antibiotics, she is also currently in a wheelchair and lives home alone so may benefit from repeat SNF #2. Acute Urinary Tract Infection/cystitis, failed outpatient antibiotic although unclear what antibiotic: Urine culture shows presumptive E. coli. Continue IV antibiotic. 04/18: Urine culture Bartholomew reported. E. coli [id number] E. coli, ramon sensitivity sensitivity available. Continue IV ceftriaxone. #3. Hypokalemia: Admission K+ 3.3, potassium is getting replaced. Repeat potassium 3.8. Serum magnesium normal. #4. Dementia, unclear type with unclear behavioral disturbance history: Complicates presentation, continue patient home donepezil as well as memantine home regimen, maintain on fall and aspiration precautions, PT/OT/case management consulted for discharge planning. #5. Anxiety and depression: continue patient home mirtazapine regimen. #6. Essential tremor: continue patient home propranolol low-dose regimen. #7. Restless leg syndrome: continue patient home pramipexole regimen. #8. Chronic normocytic anemia/iron deficiency anemia: Admission hemoglobin 11.7, MCV 88, baseline hemoglobin primarily 10-11, stable, continue to trend, currently noted history also of iron deficiency anemia not on any chronic regimen, encourage continued outpatient assessments. #9. GERD: Per list not on chronic regimen, will have as needed Mylanta. DVT: Lovenox Charges/Coding Visit Charges Inpatient E&M: 18639 Subs Hosp L2
[2023-04-19] MEDS: Memantine Hydrochloride 10 MG Tablet PO ×2 (10:01→21:31)
--- NOTE | 2023-04-19 10:15 | NURSING ---
Patient is resting soundly in bed at this time. Bed alarm intact.
[2023-04-19 14:15] VITALS: BP 105/53; PULSE 64; RESP 18; TEMP 36.8; O2SAT 96
[2023-04-19] MEDS: Ensure Plus High Protein 120 ML LIQUID PO (14:16)
[2023-04-19] MEDS: Propranolol 10 MG Tablet 20 MG PO (14:16)
[2023-04-19] MEDS: Menthol/Lanolin/Calamine/Znox 113 GM Tube 1 APPLIC TOPICAL (14:17)
[2023-04-19 20:15] VITALS: BP 110/53; PULSE 61; RESP 16; TEMP 37.3; O2SAT 94
[2023-04-19] MEDS: Mirtazapine 15 MG Tablet 7.5 MG PO (21:29)
[2023-04-19] MEDS: Pramipexole Di-HCl 0.5 MG Tablet PO (21:35)
[2023-04-19] MEDS: Donepezil HCl 10 MG Tablet PO (21:35)
[2023-04-19] MEDS: MELATONIN 3 MG TABLET PO (21:35)
[2023-04-19] MEDS: Acetaminophen 325 MG Tablet 650 MG PO (21:36)
[2023-04-19 22:00] VITALS: PULSE 60; RESP 16; O2SAT 94
[2023-04-19] MEDS: Ceftriaxone 1 GM/50 ML BAG IV (23:13)
[2023-04-20] MEDS: Azithromycin 500 MG in Dextrose 5%-Water (250mL Bag) 250 ML 250 MG IV ×2 (00:05→22:50)
[2023-04-20 03:15] VITALS: BP 107/76; PULSE 70; RESP 16; TEMP 37.1; O2SAT 94
[2023-04-20] MEDS: Propranolol 40 MG Tablet PO (05:25)
[2023-04-20] MEDS: traMADol 50 MG Tablet PO (05:30)
[2023-04-20 07:20] LABS: Absolute Lymphocyte Count 1.38 X10^3/uL (0.83-4.51); Absolute Neutrophil Count 5.2 X10^3/uL (2.0-7.7); Basophil# 0.02 X10^3/uL; Basophil% 0.3 % (0-1); Eosinophil# 0.08 X10^3/uL; Hematocrit 31.2 % (37-47); Lymphocyte # 1.38 X10^3/ul (0.83-4.51); Lymphocyte % 17.3 % (19-41); Mean Corp Hgb Conc 32.1 g/dL (32-36); Mean Corpuscular Hgb 27.7 pg (27.0-32.0); Mean Corpuscular Volume 86.4 fL (81-99); Mean Platelet Vol. 9.1 fl (6.2-12.0); Monocyte# 1.28 X10^3/uL; NRBC Flagged by Analyzer 0 % (0-5); Platelet Count 291 K/mm3 (150-450); RBC Distribution Width CV 13.4 % (11.6-14.6); RBC Distribution Width SD 42.5 fl (35.1-43.9); Red Blood Count 3.61 M/mm3 (4.2-5.4)
[2023-04-20 08:01] LABS: Anion Gap 7 (5-15); BUN 16 mg/dL (7-18); BUN/Creat Ratio 19.6 RATIO (10-20); Calcium,Total 8.2 mg/dL (8.5-10.1); Chloride 103 mmol/L (98-107); Creatinine, Serum 0.82 mg/dL (0.55-1.02); EST Glomerular Filtration Rate 71 mL/min (>60); Est Glom Filt Rate - Afr Amer 86 mL/min (>60); Glucose 92 mg/dL (74-106); Potassium 3.2 mmol/L (3.5-5.1); Sodium Level 135 mmol/L (136-145)
[2023-04-20 09:01] VITALS: BP 102/47; PULSE 62; RESP 18; TEMP 36.7; O2SAT 98
[2023-04-20] MEDS: Ensure Plus High Protein 120 ML LIQUID PO ×3 (09:10→21:44)
[2023-04-20] MEDS: Memantine Hydrochloride 10 MG Tablet PO ×2 (09:11→21:45)
--- NOTE | 2023-04-20 10:25 | CASEMGMT ---
Addendum entered by Ebony Vasquez 04/20/23 10:32: Received tc back from Kwesi, pt son who states pt has been to [facility] in the past and he is inquiring if she can go back there to build her strength prior to returning home. Made aware the SW will be updated and RN CM or SW will be in touch with him. He states pt was in TCU in the past and did well. Original Note: Noted that therapy is not recommending pt return home alone d/t safety. TC to pt son Kwesi to discuss dc plan, left message with return call information.
[2023-04-20] MEDS: Propranolol 10 MG Tablet 20 MG PO ×2 (11:33→16:31)
[2023-04-20] MEDS: Potassium Chloride Oral Tablet 20 MEQ 40 MEQ PO (11:33)
--- NOTE | 2023-04-20 12:26 | CASEMGMT ---
Discharge Planning A list of SNF providers including quality and resource use data and consistent with the patient's preferred geographic region, medical needs, and insurance network was created in [employer] Guide.? This list was provided to the SW. Thalia Robles Discharge Planning Asst.
[2023-04-20 13:55] VITALS: BP 100/50; PULSE 64; RESP 18; TEMP 37.1; O2SAT 95
[2023-04-20] MEDS: Menthol/Lanolin/Calamine/Znox 113 GM Tube 1 APPLIC TOPICAL ×2 (13:58→21:44)
--- NOTE | 2023-04-20 18:59 | PN.HOSP_ITS ---
Reason for Visit Reason for Visit: Diagnoses Acute cystitis without hematuria (04/16/23) Urinary tract infection, site not specified (04/16/23) Subjective Subjective Patient was seen and examined today, nursing states that she has been confused at times. Patient's son requested the patient go to an extended care facility for short-term rehab services, patient does not feel that she is safe to return home at this time, patient will need pre-CERT before she goes to an extended care facility. Patient denies any fevers or chills today. She is very hard of hearing which makes communication difficult. Patient is not currently on any oxygen. Objective Data Objective Data Vital Signs: Vital Signs Temp Pulse Resp BP Pulse Ox O2 Del Method 98.7 F 64 18 100/50 L 95 Room Air 04/20/23 13:55 04/20/23 13:55 04/20/23 13:55 04/20/23 13:55 04/20/23 13:55 04/20/23 13:55 Oxygen Delivery Method Room Air Weight: 49.1 kg Body Mass Index (BMI) 18.0 Intake & Output: Intake and Output for Last 24 Hours 04/19/23 04/19/23 04/20/23 00:59 23:59 23:59 Intake Total 1505 / 1505 Output Total Balance 1505 / 1505 Medical Nutrition Assessment Dietitian: Malnutrition Criteria Met Start: 04/17/23 11:22 Freq: Status: Active Protocol: Document 04/17/23 11:22 NITZA (Rec: 04/17/23 11:22 NITZA Desktop) Nutrition Malnutrition Evidence of Malnutrition Exists Yes Malnutrition (severe): Chronic Evidenced By Suboptimal Energy Intake ( Severe),Weight Loss (Severe), Physical Changes (Moderate) Clinical Problem Chronic Disease or Condition Related Malnutrition Etiology related to dementia and inadequate energy intake Signs/Symptoms as evidenced by 15.5% unintended wt loss and po intake meeting <50% of est nutritional needs within past 14 months - has fat/muscle loss throughout body; BMI = 18 .0 Status Active Problem Recommendation Dietitian Recommendations/Changes Will change diet to Regular NONSELECT d/t dementia Will continue ensure plus high protein 4x/day w/ medpass Continue appetite stimulant Provide set up assist at meals Lab / Micro Data 04/20/23 06:50 04/20/23 06:50 Labs: Laboratory Results - last 24 hr 04/20/23 06:50: WBC 8.0, RBC 3.61 L, Hgb 10.0 L, Hct 31.2 L, MCV 86.4, MCH 27.7, MCHC 32.1, RDW Std Deviation 42.5, RDW Coeff of [place]iff[place] 13.4, Plt Count 291, MPV 9.1, Immature Gran % (Auto) 0.400, Neut % (Auto) 65.0, Lymph % (Auto) 17.3 L, [place] % (Auto) 16.0 H, Eos % (Auto) 1.0, Baso % (Auto) 0.3, Absolute Neuts (auto) 5.2, Absolute Lymphs (auto) 1.38, Nucleated RBC % 0, Sodium 135 L, Potassium 3.2 L, Chloride 103, Carbon Dioxide 25.0, Anion Gap 7, BUN 16, Creatinine 0.82, Estim Creat Clear Calc 41.00, Est GFR (MDRD) Af Amer 86, Est GFR (MDRD) Non-Af 71, BUN/Creatinine Ratio 19.6, Glucose 92, Calcium 8.2 L Micro: Microbiology 04/16/23 18:27 Urine Catheter - Catheter Urine Culture - Final Presumptive E. coli 04/16/23 23:15 Mucosa - Nasopharyngeal Respiratory Panel (PCR) - Final 04/16/23 23:20 Urine, Clean Catch Legionella Antigen - Final 04/16/23 23:20 Urine, Clean Catch Streptococcus pneumoniae Antigen (M - Final 04/16/23 18:45 Nasal Secretion SARS-CoV-2 & FLU Antigen (Rapid) - Final Physical Exam Const alert and no apparent distress General Appearance: cooperative, well kempt and well developed Orientation / Consciousness: awake and confused HEENT normocephalic, head/scalp atraumatic and moist oral mucous membranes Eyes PERRL, EOMs intact bilaterally and conjunctivae normal Neck supple, no JVD, thyroid normal and no carotid bruits General: trachea midline Resp normal respiratory effort, no retractions, no use of accessory muscles and clear to auscultation bilaterally Auscultation: Negative for rales, rhonchi or wheezes Cardio regular rate, regular rhythm, no murmurs, no rub and no gallops GI normal to inspection, nondistended, normoactive bowel sounds, soft to palpation, non-tender and non-distended Extremity no clubbing, cyanosis or edema Skin no rashes or lesions noted General Skin Exam: no breakdown Neuro CN's II-XII intact bilaterally, no focal motor deficits and no sensory deficits noted Neuro Narrative: Patient is hard of hearing, she appears mildly confused Sensorium / Orientation: awake and alert Speech: speech normal Psych Psych Narrative: Patient appears mildly confused Assessment & Plan Assessment/Plan (1) UTI (urinary tract infection): QUALIFIERS: Urinary tract infection type: acute cystitis Hematuria presence: without hematuria Qualified Code(s): N30.00 - Acute cystitis without hematuria PLAN: Plan 1. Left lower lobe pneumonia-patient is currently on ceftriaxone and Zithromax, I have elected to change her antibiotic coverage starting tomorrow to Keflex. #2 encephalopathy on a backdrop of dementia-supportive care will be offered, patient will need placement in a group home facility for short-term rehab services #3 acute cystitis-again patient will be transition to Keflex starting tomorrow #4 acute debility secondary to multiple medical problems including dementia, pneumonia, and cystitis-PT and OT are seeing patient, she will need short-term placement in a group home facility #5 essential tremor-patient is on propranolol Total clinical time spent by myself addressing patient's medical issues, reviewing all of her data, and collaborating with patient's care team: 35 minutes Charges/Coding Visit Charges Inpatient E&M: 52403 Subs Hosp L2
--- NOTE | 2023-04-20 19:02 | CASEMGMT ---
Social Work Hand off from RN CM regarding discharge planning. Thought is now for short term SNF stay. Son expressed belief that patient needs some more time getting stronger before discharge. Presented to patient's room, but patient sleeping soundly. Called patient's son Kwesi Bullard who reports patient has been to [facility], with great results in the past and would like patient to go there. Explained this proposal manager writer has a list of SNF choices, including quality star and data ratings, located in patient's geographical region. Son reports familiarity with list, and just threw old one away. Kwesi agrees to look the list over for a 2nd and 3rd choice should [facility] not be an option. This proposal manager writer and Kwesi agreed for list to be left at nurses station, for Kwesi to continuous pickling line pickler helper after work this evening. Message left with Brenna at [facility] admissions of referral. Plan: Awaiting response from TCU on referral. SW following. -EVA Kinney
[2023-04-20 21:37] VITALS: BP 112/63; PULSE 68; RESP 16; TEMP 37.5; O2SAT 92
[2023-04-20] MEDS: Ceftriaxone 1 GM/50 ML BAG IV (21:44)
[2023-04-20] MEDS: 0.9% Saline Lock 10 ML Syringe IV (21:44)
[2023-04-20] MEDS: QUEtiapine 25 MG Tablet PO (21:45)
[2023-04-20] MEDS: Donepezil HCl 10 MG Tablet PO (21:45)
[2023-04-20] MEDS: Mirtazapine 15 MG Tablet 7.5 MG PO (21:45)
[2023-04-20] MEDS: Pramipexole Di-HCl 0.5 MG Tablet PO (21:45)
[2023-04-21 02:40] VITALS: BP 133/104; PULSE 77; RESP 16; TEMP 36.3; O2SAT 94
[2023-04-21 05:46] VITALS: BMI 17.9
[2023-04-21] MEDS: Propranolol 40 MG Tablet PO (06:09)
[2023-04-21 06:10] VITALS: BP 132/65; PULSE 74
[2023-04-21 08:32] VITALS: BP 121/57; PULSE 64; RESP 18; TEMP 36.7; O2SAT 94
[2023-04-21] MEDS: Ensure Plus High Protein 120 ML LIQUID PO ×2 (08:40→20:18)
[2023-04-21] MEDS: Acetaminophen 325 MG Tablet 650 MG PO (08:40)
[2023-04-21] MEDS: Memantine Hydrochloride 10 MG Tablet PO ×2 (08:41→20:18)
[2023-04-21] MEDS: traMADol 50 MG Tablet PO ×2 (10:44→18:44)
[2023-04-21] MEDS: Propranolol 10 MG Tablet 20 MG PO ×2 (11:46→16:35)
[2023-04-21] MEDS: Menthol/Lanolin/Calamine/Znox 113 GM Tube 1 APPLIC TOPICAL ×2 (11:46→20:18)
[2023-04-21 14:12] VITALS: BP 119/58; PULSE 56; RESP 18; TEMP 36.6; O2SAT 97
--- NOTE | 2023-04-21 15:21 | NURSING ---
AMBULATED COMPLETE LAP AROUND THE UNIT AND RETURNED TO BED.
--- NOTE | 2023-04-21 15:22 | CASEMGMT ---
Social Work TEGAN spoke with TCU regarding SNF placement which was recommended yesterday. TEGAN reviewed pt's therapy notes from today and pt is ambulating 275 ft SBA, transferring SBA and completing ADLs SBA. Pt was able to complete 1 step x5. With this level of functionality, pt will not qualify for SNF placement under insurance. TEGAN met with pt who states she feels she can return home. TEGAN placed phone call to pt's son Kwesi and explained the above. Kwesi expressing concerns with pt's cognition. TEGAN spoke with pt's nurse who indicates pt is A&Ox3 during the day, but more confused and anxious in the evening and over night. TEGAN relayed this information to Kwesi who confirms pt has been diagnosed with mild dementia and has sundowners during last episode of UTI. Kwesi will talk to pt and family and discuss pt return home or private pay in a nursing facility. TEGAN explained that a decision will be needed by tomorrow morning as pt is nearing time of discharge. Kwesi inquiring about [facility] in [place]. LYNDON left with [facility] inquiring about bed availability. TEGAN to continue to follow for d/c planning. ZENOBIA Fragoso
--- NOTE | 2023-04-21 16:49 | PCM.PN.HOSP ---
Reason for Visit Reason for Visit: Diagnoses Acute cystitis without hematuria (04/16/23) Urinary tract infection, site not specified (04/16/23) Subjective Subjective Patient was seen and examined today, she still exhibited some confusion. Patient has no complaints of any shortness of breath, fever, or chills. Objective Data Objective Data Vital Signs: Vital Signs Temp Pulse Resp BP Pulse Ox O2 Del Method 97.9 F 56 L 18 119/58 L 97 Room Air 04/21/23 14:12 04/21/23 14:12 04/21/23 14:12 04/21/23 14:12 04/21/23 14:12 04/21/23 14:12 Oxygen Delivery Method Room Air Weight: 48.7 kg Body Mass Index (BMI) 17.9 Intake & Output: Intake and Output for Last 24 Hours 04/19/23 04/20/23 04/21/23 23:59 23:59 23:59 Intake Total 1909 300 / 300 Output Total 1400 / 1400 Balance 1909 -1100 / -1100 Medical Nutrition Assessment Dietitian: Malnutrition Criteria Met Start: 04/17/23 11:22 Freq: Status: Active Protocol: Document 04/17/23 11:22 SLA (Rec: 04/17/23 11:22 SLA Desktop) Nutrition Malnutrition Evidence of Malnutrition Exists Yes Malnutrition (severe): Chronic Evidenced By Suboptimal Energy Intake ( Severe),Weight Loss (Severe), Physical Changes (Moderate) Clinical Problem Chronic Disease or Condition Related Malnutrition Etiology related to dementia and inadequate energy intake Signs/Symptoms as evidenced by 15.5% unintended wt loss and po intake meeting <50% of est nutritional needs within past 14 months - has fat/muscle loss throughout body; BMI = 18 .0 Status Active Problem Recommendation Dietitian Recommendations/Changes Will change diet to Regular NONSELECT d/t dementia Will continue ensure plus high protein 4x/day w/ medpass Continue appetite stimulant Provide set up assist at meals Lab / Micro Data 04/20/23 06:50 04/20/23 06:50 Micro: Microbiology 04/16/23 18:27 Urine Catheter - Catheter Urine Culture - Final Presumptive E. coli 04/16/23 23:15 Mucosa - Nasopharyngeal Respiratory Panel (PCR) - Final 04/16/23 23:20 Urine, Clean Catch Legionella Antigen - Final 04/16/23 23:20 Urine, Clean Catch Streptococcus pneumoniae Antigen (M - Final 04/16/23 18:45 Nasal Secretion SARS-CoV-2 & FLU Antigen (Rapid) - Final Physical Exam Narrative alert and no apparent distress General Appearance: cooperative, well kempt and well developed Orientation / Consciousness: awake and confused HEENT normocephalic, head/scalp atraumatic and moist oral mucous membranes Eyes PERRL, EOMs intact bilaterally and conjunctivae normal Neck supple, no JVD, thyroid normal and no carotid bruits General: trachea midline Resp normal respiratory effort, no retractions, no use of accessory muscles and clear to auscultation bilaterally Auscultation: Negative for rales, rhonchi or wheezes Cardio regular rate, regular rhythm, no murmurs, no rub and no gallops GI normal to inspection, nondistended, normoactive bowel sounds, soft to palpation, non-tender and non-distended Extremity no clubbing, cyanosis or edema Skin no rashes or lesions noted General Skin Exam: no breakdown Neuro CN's II-XII intact bilaterally, no focal motor deficits and no sensory deficits noted Neuro Narrative: Patient is hard of hearing, she appears mildly confused Sensorium / Orientation: awake and alert Speech: speech normal Psych Psych Narrative: Patient appears mildly confused Assessment & Plan Assessment/Plan (1) UTI (urinary tract infection): QUALIFIERS: Urinary tract infection type: acute cystitis Hematuria presence: without hematuria Qualified Code(s): N30.00 - Acute cystitis without hematuria PLAN: Plan 1. Left lower lobe pneumonia-patient is currently on ceftriaxone and Zithromax, I have elected to change her antibiotic coverage to Keflex #2 encephalopathy on a backdrop of dementia-supportive care will be offered, patient will need placement in a residential facility for short-term rehab services #3 acute cystitis-again patient will be transition to Keflex starting tomorrow #4 acute debility secondary to multiple medical problems including dementia, pneumonia, and cystitis-PT and OT are seeing patient, she will need short-term placement in a residential facility #5 essential tremor-patient is on propranolol #6 severe protein and caloric malnutrition-related to dementia and inadequate energy intake as evidenced by 15.5% unintended weight loss and p.o. intake meeting less than 50% estimated nutritional needs within the past 14 months, patient has fat/muscle loss throughout the body-patient is on a regular diet, she will continue Ensure Plus high-protein 4 times a day with med Pass, she will continue on an appetite stimulant #7 chronic dementia-type unknown, probable Alzheimer's dementia-complicates care, medical course, recovery, and prognosis Total clinical time spent by myself addressing patient's medical issues, reviewing all of her data, and collaborating with patient's care team: 35 minutes Charges/Coding Visit Charges Inpatient E&M: 01350 Subs Hosp L2
[2023-04-21] MEDS: Carbamide Peroxide 15 ML Bottle 5 DRP OTIC ×2 (20:10→23:12)
[2023-04-21 20:13] VITALS: BP 123/66; PULSE 60; RESP 16; TEMP 37.2; O2SAT 95
[2023-04-21] MEDS: Pramipexole Di-HCl 0.5 MG Tablet PO (20:18)
[2023-04-21] MEDS: Mirtazapine 15 MG Tablet 7.5 MG PO (20:18)
[2023-04-21] MEDS: Donepezil HCl 10 MG Tablet PO (20:18)
[2023-04-21] MEDS: Cephalexin 500 MG Capsule PO (20:18)
[2023-04-21] MEDS: QUEtiapine 25 MG Tablet PO (20:18)
[2023-04-22 02:15] VITALS: BP 137/70; PULSE 74; RESP 16; TEMP 37.3; O2SAT 95
[2023-04-22] MEDS: Propranolol 40 MG Tablet PO (05:08)
[2023-04-22] MEDS: Carbamide Peroxide 15 ML Bottle 5 DRP OTIC ×3 (05:09→17:04)
[2023-04-22 05:10] VITALS: BMI 18.0
--- NOTE | 2023-04-22 09:29 | CASEMGMT ---
Addendum entered by Tawanna Wilson 04/22/23 11:12: Social Work Return call from Micaela at [facility] who states pt is more appropriate for the memory care unit and they do have a bed available. Micaela to reach out to pt's son at this time to discuss change in location and cost differences. SW will await outcome of this conversation. ZENOBIA Fragoso Original Note: Social Work SW spoke with Micaela at [facility] and they do have beds available and would consider patient for admission. Phone call to pt's son Kwesi. Kwesi states pt was confused this morning and family has decided pt is unsafe to be at home alone. Information regarding [facility] availability and pricing provided. Kwesi would like to proceed with admission to [facility]. Micaela at [facility] updated and she will reach out to pt's son Kwesi to discuss admission. DC updated and to send clinicals to [facility] for review. Plan: [facility], pending acceptance ZENOBIA Fragoso
[2023-04-22 10:00] VITALS: BP 118/73; PULSE 70; RESP 18; TEMP 37; O2SAT 95
--- NOTE | 2023-04-22 10:13 | CASEMGMT ---
Discharge Planning Referral faxed to [facility]. Fax confirmation received. Thalia Robles, Discharge Planning Asst.
[2023-04-22] MEDS: Cephalexin 500 MG Capsule PO ×2 (11:24→21:01)
[2023-04-22] MEDS: Propranolol 10 MG Tablet 20 MG PO ×2 (11:24→17:05)
[2023-04-22] MEDS: Memantine Hydrochloride 10 MG Tablet PO ×2 (11:25→21:01)
[2023-04-22] MEDS: Acetaminophen 325 MG Tablet 650 MG PO ×2 (11:28→19:39)
[2023-04-22] MEDS: Menthol/Lanolin/Calamine/Znox 113 GM Tube 1 APPLIC TOPICAL ×4 (11:53→21:02)
--- NOTE | 2023-04-22 14:18 | CASEMGMT ---
Social Work SW spoke with both Micaela at [facility] and pts son Kwesi. Kwesi to meet with [facility] later this afternoon to sign papers and to move pts furniture in to the AL and will then be in to tell pt the discharge plan. Pt can admit to [facility] unit tomorrow. Plan: [facility], memory care on ZENOBIA Fragoso
[2023-04-22] MEDS: traMADol 50 MG Tablet PO (14:24)
--- NOTE | 2023-04-22 16:37 | PCM.PN.HOSP ---
Reason for Visit Reason for Visit: Diagnoses Acute cystitis without hematuria (04/16/23) Urinary tract infection, site not specified (04/16/23) Subjective Subjective Seen and examined today, she remains confused at baseline but is directable. I talked at length with her son by phone about her medical problems. The plan is for the patient to go to assisted living tomorrow. She is not safe at this time to go home alone. Objective Data Objective Data Vital Signs: Vital Signs Temp Pulse Resp BP Pulse Ox O2 Del Method 98.6 F 70 18 118/73 95 Room Air 04/22/23 10:00 04/22/23 10:00 04/22/23 10:00 04/22/23 10:00 04/22/23 10:00 04/22/23 10:00 Oxygen Delivery Method Room Air Weight: 49.045 kg Body Mass Index (BMI) 18.0 Intake & Output: Intake and Output for Last 24 Hours 04/20/23 04/21/23 04/22/23 23:59 23:59 23:59 Intake Total 1909 / 1909 300 / 300 450 / 450 Output Total 1899 / 1900 800 / 800 Balance 1909 -1600 / -1600 -350 / -350 Medical Nutrition Assessment Dietitian: Malnutrition Criteria Met Start: 04/17/23 11:22 Freq: Status: Active Protocol: Document 04/17/23 11:22 NITZA (Rec: 04/17/23 11:22 NITZA Desktop) Nutrition Malnutrition Evidence of Malnutrition Exists Yes Malnutrition (severe): Chronic Evidenced By Suboptimal Energy Intake ( Severe),Weight Loss (Severe), Physical Changes (Moderate) Clinical Problem Chronic Disease or Condition Related Malnutrition Etiology related to dementia and inadequate energy intake Signs/Symptoms as evidenced by 15.5% unintended wt loss and po intake meeting <50% of est nutritional needs within past 14 months - has fat/muscle loss throughout body; BMI = 18 .0 Status Active Problem Recommendation Dietitian Recommendations/Changes Will change diet to Regular NONSELECT d/t dementia Will continue ensure plus high protein 4x/day w/ medpass Continue appetite stimulant Provide set up assist at meals Lab / Micro Data 04/20/23 06:50 04/20/23 06:50 Micro: Microbiology 04/16/23 18:27 Urine Catheter - Catheter Urine Culture - Final Presumptive E. coli 04/16/23 23:15 Mucosa - Nasopharyngeal Respiratory Panel (PCR) - Final 04/16/23 23:20 Urine, Clean Catch Legionella Antigen - Final 04/16/23 23:20 Urine, Clean Catch Streptococcus pneumoniae Antigen (M - Final 04/16/23 18:45 Nasal Secretion SARS-CoV-2 & FLU Antigen (Rapid) - Final Physical Exam Narrative alert and no apparent distress General Appearance: cooperative, well kempt and well developed Orientation / Consciousness: awake and confused HEENT normocephalic, head/scalp atraumatic and moist oral mucous membranes Eyes PERRL, EOMs intact bilaterally and conjunctivae normal Neck supple, no JVD, thyroid normal and no carotid bruits General: trachea midline Resp normal respiratory effort, no retractions, no use of accessory muscles and clear to auscultation bilaterally Auscultation: Negative for rales, rhonchi or wheezes Cardio regular rate, regular rhythm, no murmurs, no rub and no gallops GI normal to inspection, nondistended, normoactive bowel sounds, soft to palpation, non-tender and non-distended Extremity no clubbing, cyanosis or edema Skin no rashes or lesions noted General Skin Exam: no breakdown Neuro CN's II-XII intact bilaterally, no focal motor deficits and no sensory deficits noted Neuro Narrative: Patient is hard of hearing, she appears mildly confused Sensorium / Orientation: awake and alert Speech: speech normal Psych Psych Narrative: Patient appears mildly confused Assessment & Plan Assessment/Plan (1) UTI (urinary tract infection): QUALIFIERS: Urinary tract infection type: acute cystitis Hematuria presence: without hematuria Qualified Code(s): N30.00 - Acute cystitis without hematuria PLAN: Plan 1. Left lower lobe pneumonia-patient is currently on Keflex #2 encephalopathy on a backdrop of dementia-supportive care will be offered, patient will go to an assisted living facility at the time of discharge #3 acute cystitis-patient is on Keflex #4 acute debility secondary to multiple medical problems including dementia, pneumonia, and cystitis-PT and OT are seeing patient, she will be going to an assisted living facility #5 essential tremor-patient is on propranolol #6 severe protein and caloric malnutrition-related to dementia and inadequate energy intake as evidenced by 15.5% unintended weight loss and p.o. intake meeting less than 50% estimated nutritional needs within the past 14 months, patient has fat/muscle loss throughout the body-patient is on a regular diet, she will continue Ensure Plus high-protein 4 times a day with med Pass, she will continue on an appetite stimulant #7 chronic dementia-type unknown, probable Alzheimer's dementia-complicates care, medical course, recovery, and prognosis Total clinical time spent by myself addressing patient's medical issues, reviewing all of her data, and collaborating with patient's care team: 35 minutes Charges/Coding Visit Charges Inpatient E&M: 39662 Subs Hosp L2
[2023-04-22 17:02] VITALS: BP 131/70; PULSE 74; RESP 18; TEMP 37.1; O2SAT 97
[2023-04-22 20:00] VITALS: BP 119/72; PULSE 61; RESP 16; TEMP 36.7; O2SAT 95
[2023-04-22] MEDS: QUEtiapine 25 MG Tablet PO (21:00)
[2023-04-22] MEDS: Mirtazapine 15 MG Tablet PO (21:01)
[2023-04-22] MEDS: MELATONIN 3 MG TABLET PO (21:01)
[2023-04-22] MEDS: Donepezil HCl 10 MG Tablet PO (21:02)
[2023-04-22] MEDS: Pramipexole Di-HCl 0.5 MG Tablet PO (21:02)
[2023-04-22] MEDS: Ensure Plus High Protein 120 ML LIQUID PO (21:02)
[2023-04-23 03:00] VITALS: BP 114/65; PULSE 73; RESP 16; TEMP 36.6; O2SAT 96
[2023-04-23 05:13] VITALS: BMI 18.1
[2023-04-23] MEDS: Carbamide Peroxide 15 ML Bottle 5 DRP OTIC ×2 (05:14→12:32)
[2023-04-23] MEDS: Propranolol 40 MG Tablet PO (05:14)
[2023-04-23] MEDS: traMADol 50 MG Tablet PO (05:14)
[2023-04-23] MEDS: Acetaminophen 325 MG Tablet 650 MG PO (07:52)
[2023-04-23] MEDS: Memantine Hydrochloride 10 MG Tablet PO (08:47)
[2023-04-23] MEDS: Cephalexin 500 MG Capsule PO (08:47)
[2023-04-23] MEDS: Ensure Plus High Protein 120 ML LIQUID PO (08:47)
[2023-04-23] MEDS: Menthol/Lanolin/Calamine/Znox 113 GM Tube 1 APPLIC TOPICAL (08:48)
[2023-04-23 09:00] VITALS: BP 106/62; PULSE 53; RESP 15; TEMP 37; O2SAT 93
--- NOTE | 2023-04-23 11:38 | DCINST_ITS ---
Discharge Instructions Diet Discharge Diet: No restrictions Activity Discharge Activity: Return to Normal Activity and Use Walker Weight Bearing Status: Full weight bearing Follow Up Care Test Results: Test results from this visit will be discussed in further detail at your follow- up appointment, if applicable. Discharge Plan Admission Admit Date/Time: 04/16/23 19:53 Primary Reason for Your Visit: debility,pneumonia, urinary tract infection Attending Provider: John Johnston Primary Care Provider: Gogo Ro Consulting Providers: Karon Nunes; Darinel Carlos; Pravin Cruz Discharge Orders/Prescriptions Prescriptions: No Action tramadol 50 mg tablet 50 mg PO Q8H PRN (Reason: Pain) acetaminophen [Tylenol] 325 mg capsule 650 mg PO Q4H PRN (Reason: pain) pramipexole 0.5 mg tablet 0.5 mg PO QHS Qty: 30 4RF mirtazapine 7.5 mg tablet 7.5 mg PO QHS Qty: 30 4RF donepezil 10 mg tablet 10 mg PO QHS Qty: 30 4RF memantine [Namenda] 10 mg tablet 10 mg PO BID Qty: 60 4RF propranolol 20 mg tablet 20 mg PO .COMPLEX Qty: 120 5RF Rx Instructions: Take 2 tablets orally qAM, 1 tablet qNoon and 1 tablet q5PM. Package patient's medications in blister packs. calcium citrate 250 mg calcium-vitamin D3 200 unit tablet 250 mg-5 mcg (200 unit) tablet 1 tab PO TID Qty: 90 4RF Referrals / Follow Up: Gogo Ro MD [Primary Care Provider] -
--- NOTE | 2023-04-23 11:38 | PCM.DC ---
Discharge Instructions Diet Discharge Diet: No restrictions Activity Discharge Activity: Return to Normal Activity and Use Walker Weight Bearing Status: Full weight bearing Follow Up Care Test Results: Test results from this visit will be discussed in further detail at your follow-up appointment, if applicable. Discharge Plan Admission Admit Date/Time: 04/16/23 19:53 Primary Reason for Your Visit: debility,pneumonia, urinary tract infection Attending Provider: John Johnston Primary Care Provider: Gogo Ro Consulting Providers: Karon Nunes; Darinel Carlos; Pravin rCuz Discharge Orders/Prescriptions Prescriptions: New quetiapine 25 mg Tablet 25 mg PO QHS Qty: 30 0RF acetaminophen 325 mg Tablet 650 mg PO Q4H PRN PRN (Reason: Fever, pain -03/24) Qty: 30 0RF donepezil 10 mg Tablet 10 mg PO QHS Qty: 30 0RF sennosides-docusate sodium [Stool Softener-Stimulant Laxat] 8.6-50 mg Tablet 2 tab PO BID PRN PRN (Reason: Constipation) Qty: 0 0RF tramadol 50 mg Tablet 50 mg PO Q8H PRN PRN (Reason: Pain Score 4-10) Qty: 60 0RF pramipexole 0.5 mg Tablet 0.5 mg PO QHS Qty: 30 0RF propranolol 10 mg Tablet 20 mg PO 1200,1700 Qty: 60 0RF propranolol 40 mg Tablet 40 mg PO 0600 Qty: 30 0RF mirtazapine 15 mg Tablet 15 mg PO QHS Qty: 30 0RF memantine 10 mg Tablet 10 mg PO BID Qty: 60 0RF menthol-zinc oxide [Calmoseptine] 0.44-20.6 % Ointment 1 applic topical 4X/DAY Qty: 0 0RF Protocol: *Topical Application Instructions APPLICATION INSTRUCTIONS: apply to affected region Ensure Plus High Protein 0.08 gram-1.5 kcal/mL Liquid 120 ml PO 4X/DAY Qty: 0 0RF Continued calcium citrate 250 mg calcium-vitamin D3 200 unit tablet 250 mg-5 mcg (200 unit) tablet 1 tab PO TID Qty: 90 4RF Discontinued acetaminophen [Tylenol] 325 mg capsule 650 mg PO Q4H PRN (Reason: pain) pramipexole 0.5 mg tablet 0.5 mg PO QHS Qty: 30 4RF mirtazapine 7.5 mg tablet 7.5 mg PO QHS Qty: 30 4RF donepezil 10 mg tablet 10 mg PO QHS Qty: 30 4RF memantine [Namenda] 10 mg tablet 10 mg PO BID Qty: 60 4RF propranolol 20 mg tablet 20 mg PO .COMPLEX Qty: 120 5RF Rx Instructions: Take 2 tablets orally qAM, 1 tablet qNoon and 1 tablet q5PM. Package patient's medications in blister packs. No Action tramadol 50 mg tablet 50 mg PO Q8H PRN (Reason: Pain) Referrals / Follow Up: Lalo Palm DO [Med Staff - Line Rider] - Within 1 Month Gogo Ro MD [Primary Care Provider] - Disposition Disposition (needs filled in before D/C Order can be placed): Assisted Living
[2023-04-23 11:48] VITALS: BP 124/68; PULSE 69; RESP 16; TEMP 36.3; O2SAT 97
--- NOTE | 2023-04-23 11:48 | DS.PCM_ITS ---
Providers Date of Admission: 04/16/23 Date of Discharge: 04/23/23 Primary Care Physician: Dr. Gogo Ro MD Reason For Visit: PNA, UTI, ADULT FTT Diagnosis Discharge Diagnosis (1) UTI (urinary tract infection): Status: Acute Code(s): N39.0 - Urinary tract infection, site not specified Qualifiers: Hematuria presence: without hematuria Urinary tract infection type: acute cystitis Qualified Code(s): N30.00 - Acute cystitis without hematuria Plan 1. Left lower lobe pneumonia-patient is currently on Keflex #2 encephalopathy on a backdrop of dementia-supportive care will be offered, patient will go to an assisted living facility at the time of discharge #3 acute cystitis-patient is on Keflex #4 acute debility secondary to multiple medical problems including dementia, pneumonia, and cystitis-PT and OT are seeing patient, she will be going to an assisted living facility #5 essential tremor-patient is on propranolol #6 severe protein and caloric malnutrition-related to dementia and inadequate energy intake as evidenced by 15.5% unintended weight loss and p.o. intake meeting less than 50% estimated nutritional needs within the past 14 months, patient has fat/muscle loss throughout the body-patient is on a regular diet, she will continue Ensure Plus high-protein 4 times a day with [employer], she will continue on an appetite stimulant #7 chronic dementia-type unknown, probable Alzheimer's dementia-complicates care, medical course, recovery, and prognosis Total clinical time spent by myself addressing patient's medical issues, reviewing all of her data, and collaborating with patient's care team: 35 minutes Medications at Discharge Home Medications tramadol 50 mg tablet 50 mg PO Q8H PRN Pain 02/11/22 calcium citrate 250 mg calcium-vitamin D3 5 mcg (200 unit) tablet 1 tab PO TID Supplement #90 tabs 03/17/23 acetaminophen 325 mg tablet 650 mg (2 x 325 mg) PO Q4H PRN PRN Fever, pain 1- 03/24 #30 tabs 04/23/23 donepezil 10 mg tablet 10 mg PO QHS #30 tabs 04/23/23 food supplemt, lactose-reduced 0.08 gram-1.5 kcal/mL oral liquid (Ensure Plus High Protein) 120 ml PO 4X/DAY #0 mL 11/09/23 memantine 10 mg tablet 10 mg PO BID #60 tabs 04/23/23 menthol 0.44 %-zinc oxide 20.6 % topical ointment (Calmoseptine) 1 applic topical 4X/DAY #0 grams 04/23/23 mirtazapine 15 mg tablet 15 mg PO QHS #30 tabs 04/23/23 pramipexole 0.5 mg tablet 0.5 mg PO QHS #30 tabs 04/23/23 propranolol 10 mg tablet 20 mg (2 x 10 mg) PO 1200,1700 #60 tabs 04/23/23 propranolol 40 mg tablet 40 mg PO 0600 #30 tabs 04/23/23 quetiapine 25 mg tablet 25 mg PO QHS #30 tabs 04/23/23 sennosides 8.6 mg-docusate sodium 50 mg tablet (Stool Softener-Stimulant Laxative) 2 tab PO BID PRN PRN Constipation #0 tabs 04/23/23 tramadol 50 mg tablet 50 mg PO Q8H PRN PRN Pain Score 4-10 #60 tabs 04/23/23 Hospital Course Operations None Procedures None Summary of Care Provided Minutes Spent on Discharge: 33 Hospital Course: This 83-year-old white female was seen in the emergency room with altered mental status, patient presented with her family, patient stated that the patient had a recent urinary tract infection was treated with outpatient antibiotics. Patient was debilitated and was weak and could not walk. Work-up in the emergency room included COVID and flu test which were negative, chest x-ray was obtained-it showed evidence of the left lower lobe infiltrate which was felt to be pneumonia, patient's urinalysis was obtained and was concerning for UTI. Patient was unable to ambulate in the ER. Patient was given IV Rocephin and Zithromax, she was admitted to [place] [address] and seen by PT and OT. Patient's urine grew out less than 100,000 colonies of E. coli, she remained confused during her hospital stay and I had discussions with the patient's son who confirmed that the patient did have dementia. Patient was felt to be appropriate for placement in assisted living and [facility] agreed to except the patient. On 04/23/2023, patient was seen and examined: On examination she appeared older than her stated age, she does not appear to be in any distress. Vital signs as documented. Skin warm and dry and without overt rashes. Neck without JVD, thyroid appears normal, trachea is midline, neck is supple. Lungs clear, normal air movement was noted. Heart exam notable for regular rhythm, normal sounds and absence of murmurs, rubs or gallops. Abdomen unremarkable and without evidence of organomegaly, masses, or abdominal aortic enlargement, bowel sounds are present in all 4 quadrants, no abdominal tenderness was noted. Extremities nonedematous, no cyanosis was noted, no clubbing was noted. Neuro: Cranial nerves II through XII are grossly intact, no focal motor deficits were noted, sensation to light touch and pinprick is intact, motor exam 5/5 throughout. Psych: Patient is alert and confused,she does not appear anxious or depressed, she does not appear agitated. Patient was discharged in stable condition assisted living on 04/23/2023 Medical Records Data Medical Nutrition Assessment Dietitian: Malnutrition Criteria Met Start: 04/17/23 11:22 Freq: Status: Active Protocol: Document 04/17/23 11:22 [facility] (Rec: 04/17/23 11:22 [facility] Desktop) Nutrition Malnutrition Evidence of Malnutrition Exists Yes Malnutrition (severe): Chronic Evidenced By Suboptimal Energy Intake ( Severe),Weight Loss (Severe), Physical Changes (Moderate) Clinical Problem Chronic Disease or Condition Related Malnutrition Etiology related to dementia and inadequate energy intake Signs/Symptoms as evidenced by 15.5% unintended wt loss and po intake meeting <50% of est nutritional needs within past 14 months - has fat/muscle loss throughout body; BMI = 18 .0 Status Active Problem Recommendation Dietitian Recommendations/Changes Will change diet to Regular NONSELECT d/t dementia Will continue ensure plus high protein 4x/day w/ medpass Continue appetite stimulant Provide set up assist at meals Weight / BMI Weight Weight: 49.2 kg Body Mass Index (BMI) 18.1 ABG / Lab / Microbiology Data 04/20/23 06:50 04/20/23 06:50 Microbiology: Microbiology 04/16/23 18:27 Urine Catheter - Catheter Urine Culture - Final Presumptive E. coli 04/16/23 23:15 Mucosa - Nasopharyngeal Respiratory Panel (PCR) - Final 04/16/23 23:20 Urine, Clean Catch Legionella Antigen - Final 04/16/23 23:20 Urine, Clean Catch Streptococcus pneumoniae Antigen (M - Final 04/16/23 18:45 Nasal Secretion SARS-CoV-2 & FLU Antigen (Rapid) - Final D/C Instructions Discharge Diet: No restrictions Weight Bearing Status: Full weight bearing Meaningful Use Info Meaningful Use Diagnoses (Choose all that apply): None applicable Discharge Plan Admission Admit Date/Time: 04/16/23 19:53 Primary Reason for Your Visit: debility,pneumonia, urinary tract infection Attending Provider: John Johnston Primary Care Provider: Gogo Ro Consulting Providers: Karon Nunes; Darinel Carlos; Pravin Cruz Discharge Orders/Prescriptions Prescriptions: New quetiapine 25 mg Tablet 25 mg PO QHS Qty: 30 0RF acetaminophen 325 mg Tablet 650 mg PO Q4H PRN PRN (Reason: Fever, pain -03/24) Qty: 30 0RF donepezil 10 mg Tablet 10 mg PO QHS Qty: 30 0RF sennosides-docusate sodium [Stool Softener-Stimulant Laxat] 8.6-50 mg Tablet 2 tab PO BID PRN PRN (Reason: Constipation) Qty: 0 0RF tramadol 50 mg Tablet 50 mg PO Q8H PRN PRN (Reason: Pain Score 4-10) Qty: 60 0RF pramipexole 0.5 mg Tablet 0.5 mg PO QHS Qty: 30 0RF propranolol 10 mg Tablet 20 mg PO 1200,1700 Qty: 60 0RF propranolol 40 mg Tablet 40 mg PO 0600 Qty: 30 0RF mirtazapine 15 mg Tablet 15 mg PO QHS Qty: 30 0RF memantine 10 mg Tablet 10 mg PO BID Qty: 60 0RF menthol-zinc oxide [Calmoseptine] 0.44-20.6 % Ointment 1 applic topical 4X/DAY Qty: 0 0RF Protocol: *Topical Application Instructions APPLICATION INSTRUCTIONS: apply to affected region Ensure Plus High Protein 0.08 gram-1.5 kcal/mL Liquid 120 ml PO 4X/DAY Qty: 0 0RF Continued calcium citrate 250 mg calcium-vitamin D3 200 unit tablet 250 mg-5 mcg (200 unit) tablet 1 tab PO TID Qty: 90 4RF Discontinued acetaminophen [Tylenol] 325 mg capsule 650 mg PO Q4H PRN (Reason: pain) pramipexole 0.5 mg tablet 0.5 mg PO QHS Qty: 30 4RF mirtazapine 7.5 mg tablet 7.5 mg PO QHS Qty: 30 4RF donepezil 10 mg tablet 10 mg PO QHS Qty: 30 4RF memantine [Namenda] 10 mg tablet 10 mg PO BID Qty: 60 4RF propranolol 20 mg tablet 20 mg PO .COMPLEX Qty: 120 5RF Rx Instructions: Take 2 tablets orally qAM, 1 tablet qNoon and 1 tablet q5PM. Package patient's medications in blister packs. No Action tramadol 50 mg tablet 50 mg PO Q8H PRN (Reason: Pain) Referrals / Follow Up: Lalo Palm DO [Med Staff - Machine Operator Slitter Technician] - Within 1 Month Gogo Ro MD [Primary Care Provider] - Disposition Disposition (needs filled in before D/C Order can be placed): Assisted Living Charges/Coding Visit Charges Inpatient E&M: 29404 Disch Hosp >30min
--- NOTE | 2023-04-23 12:14 | CASEMGMT ---
Social Work Per physician, pt is ready for discharge today. Discharge orders faxed to [facility] and call placed to Micaela at [facility] and notified of discharge today. Phone call to pt's son Kwesi and he will come in shortly to transport pt to [facility]. Nursing updated. Disposition: [facility], memory care ZENOBIA Fragoso
[2023-04-23] MEDS: Propranolol 10 MG Tablet 20 MG PO (12:32)
--- NOTE | 2023-04-23 13:32 | PHA.DC.MR.R ---
Pharmacy CT Med Reconciliation Pharmacy Service has performed discharge medication reconciliation for this patient upon transfer to [place] The patient's discharge medication list was reviewed for discrepancies and discrepancies were resolved. Medications at Discharge Home Medications tramadol 50 mg tablet 50 mg PO Q8H PRN Pain 02/11/22 calcium citrate 250 mg calcium-vitamin D3 5 mcg (200 unit) tablet 1 tab PO TID Supplement #90 tabs 03/17/23 acetaminophen 325 mg tablet 650 mg (2 x 325 mg) PO Q4H PRN PRN Fever, pain 1-03/24 #30 tabs 04/23/23 donepezil 10 mg tablet 10 mg PO QHS #30 tabs 04/23/23 food supplemt, lactose-reduced 0.08 gram-1.5 kcal/mL oral liquid (Ensure Plus High Protein) 120 ml PO 4X/DAY #0 mL 04/23/23 memantine 10 mg tablet 10 mg PO BID #60 tabs 04/23/23 menthol 0.44 %-zinc oxide 20.6 % topical ointment (Calmoseptine) 1 applic topical 4X/DAY #0 grams 04/23/23 mirtazapine 15 mg tablet 15 mg PO QHS #30 tabs 04/23/23 pramipexole 0.5 mg tablet 0.5 mg PO QHS #30 tabs 04/23/23 propranolol 10 mg tablet 20 mg (2 x 10 mg) PO 1200,1700 #60 tabs 04/23/23 propranolol 40 mg tablet 40 mg PO 0600 #30 tabs 04/23/23 quetiapine 25 mg tablet 25 mg PO QHS #30 tabs 04/23/23 sennosides 8.6 mg-docusate sodium 50 mg tablet (Stool Softener-Stimulant Laxative) 2 tab PO BID PRN PRN Constipation #0 tabs 04/23/23 tramadol 50 mg tablet 50 mg PO Q8H PRN PRN Pain Score 4-10 #60 tabs 04/23/23
== END 2023-04-23 13:25 | disposition home or self-care (01) | DRG 193 ==
LOC: ED 19:11 → MS3 20:15
PROVIDERS: Family Medicine; Admitting Provider Family Medicine; Emergency Provider Student in an Organized Health Care Education/Training Program; PCP Family Medicine; Visit Provider Internal Medicine
DX: J18.9 Pneumonia, unspecified organism (principal); E43 Unspecified severe protein-calorie malnutrition; G93.41 Metabolic encephalopathy; N30.00 Acute cystitis without hematuria; Z68.1 Body mass index [BMI] 19.9 or less, adult; F02.80 Dementia in other diseases classified elsewhere, unspecified severity, without behavioral disturbance, psychotic disturbance, mood disturbance, and anxiety; G30.9 Alzheimer's disease, unspecified; I10 Essential (primary) hypertension; G25.81 Restless legs syndrome; D50.9 Iron deficiency anemia, unspecified; F32.A Depression, unspecified; I44.7 Left bundle-branch block, unspecified; G25.0 Essential tremor; E87.6 Hypokalemia; E78.5 Hyperlipidemia, unspecified; K21.9 Gastro-esophageal reflux disease without esophagitis; F41.9 Anxiety disorder, unspecified; Z87.891 Personal history of nicotine dependence; R53.81 Other malaise; G89.29 Other chronic pain; Z80.0 Family history of malignant neoplasm of digestive organs; Z51.5 Encounter for palliative care; B96.20 Unspecified Escherichia coli [E. coli] as the cause of diseases classified elsewhere; Z66 Do not resuscitate; H91.90 Unspecified hearing loss, unspecified ear; R62.7 Adult failure to thrive
CPT/HCPCS: 36415; 71045; 80048; 80053; 81001; 83735; 84484; 85025; 87086; 87088; 87186; 87428; 87449; 87633; 93005; 97112; 97116; 97162; 97166; 97530; 97535; 97802; 99285; J7030; J7050; P9612; A4216

== ENCOUNTER → 2023-05-25 | Outpatient (CLI) | payer MEDICARE, SELFPAY ==
[2023-05-25 15:52] LABS: Potassium 3.8 mmol/L (3.5-5.1)
== END | disposition home or self-care (01) ==
LOC: MTLAB 12:05
PROVIDERS: PCP Family Medicine; Referring Provider Psychiatry & Neurology Neurology; Visit Provider Psychiatry & Neurology Neurology
DX: E87.6 Hypokalemia (principal)
CPT/HCPCS: 36415; 84132

== ENCOUNTER 2023-08-10 10:30 | Outpatient (RCR) | payer MEDICARE, SELFPAY ==
--- NOTE | 2023-05-25 11:52 | HP.PTEVAL ---
Patient's Visit Information Visit Information Visit Information: SAPNA GASCA is a 83 year old F referred to Physical Therapy by Dr. Justice Ro MD with a diagnosis of deconditioning. Date of Evaluation: 05/25/23 Physical Therapist: MICAH Umanzor Visit Plan Frequency: 2x /Week Duration: 6 Weeks Plan: 2X/ week for 6 weeks for LE strength, core stability, balance training (with and without head turns), gait training, transfers with HEP Subjective Subjective: Pt is having trouble with back pain, balance and UTI with short stay in [place]. She sees a pain management for her back for injections and tramadol. She feels that her legs are weak and tingle a lot. She is able to get out of chairs with the use of her arms. She has not had any falls. She lives a lone in a condo and has a gal that helps her a few times a week. She does not sleep well.. not sure why. Tremors in the arms that are worse over the last few years. She feels that she has body shakes now that started this month.... See Neurologist every 3 months for Dementia (mild case). Pain back pain: Pain Intensity (Out of 10): 4 leg pain: Pain Intensity (Out of 10): 3 Objective Objective: Gait: walks with shorter stride with a straight cane. Each step does not clear each stance foot. Bent over posture FGA 6 LE MMT: R hip flex 10 and L 6.4 R knee ext 15 and L 13.6 R knee flex 5.4 and L 4.2 R hip abd in S/L 7.4 and L 4.7 Bridge X 5 with 1/2 normal ROM and pain Standing heel and toe raises X 3 with short ROM with cane and min A Sit to stand: on first attempt with using one UE on the chair rail Balance/Special Test Scores Functional Gait Assessment Score: 6 % Disability: 80.0000 Lower Extremity Functional Score: 18 Goals Goal 1:: I HEP Goal Time Frame: 6-8 Weeks Goal 2:: Increase LE strength (at time of the eval: LE MMT: R hip flex 10 and L 6.4 R knee ext 15 and L 13.6 R knee flex 5.4 and L 4.2 R hip abd in S/L 7.4 and L 4.7) Goal Time Frame: 6-8 Weeks Goal 3:: Increase balance (FGA 6 at time of the eval). Goal Time Frame: 6-8 Weeks Goal 4:: Sit to stand X 5 without UE support Goal Time Frame: 6-8 Weeks Goal 5:: Be able to walk around dept with CGA without using her cane with occ head turns without LOB Goal Time Frame: 6-8 Weeks Rehabilitation Potential Rehabilitation Potential: Good Anticipated Interventions Patient/Client Instruction: Educate patient on: Condition and Plan of Care For the Purpose of:: To decrease pain, To increase ROM, To improve nutrient delivery to tissue, To improve muscle performance and motor function, To improve ability to perform ADL's, To increase tolerance to activity/condition/position, To improve performance and independence with ADL's, To decrease level of supervision to perform tasks, To improve ability of physical actions for home/community/work/leisure, To improve gait and locomotor functions, To improve health of tissue, To increase flexibility/ROM and To improve balance Therapeutic Exercise to Include: Strength training, Endurance training, Balance training, Flexibilty training, Gait and locomotor training, Neuromotor development, Active ROM and Dynamic Lumbar Stabilization For the Purpose of:: To decrease pain, To increase ROM, To improve nutrient delivery to tissue, To improve muscle performance and motor function, To improve ability to perform ADL's, To increase tolerance to activity/condition/position, To improve performance and independence with ADL's, To decrease level of supervision to perform tasks, To improve ability of physical actions for home/community/work/leisure, To improve gait and locomotor functions, To improve health of tissue, To decrease soft tissue restriction, To increase flexibility/ROM and To improve balance Functional Training to Include: Gait training For the Purpose of:: To improve gait and locomotor functions Text: Thank you for the opportunity to evaluate your patient. For Medicare and Medicare HMO plans, please review the plan of care and approve it. It will need to be FAXED BACK to us at [phone] for Medicare purposes. For Medicare only, by signing this I certify the plan of care. Please let me know if there are questions or concerns regarding this plan of care. Physician Signature: Date:
--- NOTE | 2023-08-10 15:05 | HP.PTDCSUM_ITS ---
Discharge Summary D/C summary: It has been my pleasure to treat SAPNA GASCA referred by Dr. Justice Ro MD, with the diagnosis of deconditioning for a total of 19 visit(s). Discharge Date: 08/10/23 Please see the following information for a summary of their discharge status. Subjective Subjective: Pt reports that she is not doing very well. She is hurting today and everyday. She had a lot of running around this morning. She has an appt with a Dr coming up. She thinks that PT is good for her but has not seen any improvement with the pain. She has noticed some days and increase in strength and some days not. Pain back pain: Pain Intensity (Out of 10): 5 leg pain: Pain Intensity (Out of 10): 2 Overall Improvement % Improvement: 0 Objective Objective/Function: MMT: R hip flex 10.5 and L 12.7 R knee ext 15 and L 13.6 R knee flex 7.5 and L 8.8 Pt still walks with very flexed trunk and straight cane...can straighten up on command but still major flexed and rotated spine Spoke to the patient and explained that if she feels that she has not had any improvements and no improvements in pain that we need to have her see her Dr again. We were in the middle of testing her balance and the pt looked up at me and said you do not want to work with me and I am going home. Walked the pt out to the caregiver and she said that the pt memory is not good today. She said she would have her son call me. The pt also asked me twice about her purse (she did not bring one in today) and about her jacket which she was wearing. Spoke with son and explained situation and that we will be happy to see her again but needs to get her pain resolved first. Goals Goal 1:: I HEP Goal Progress: Goal Met Goal 2:: Increase LE strength (at time of the eval: LE MMT: R hip flex 10 and L 6.4 R knee ext 15 and L 13.6 R knee flex 5.4 and L 4.2 R hip abd in S/L 7.4 and L 4.7) Goal Progress: Progressing Goal 3:: Increase balance (FGA 6 at time of the eval). Goal Progress: Progressing Goal 4:: Sit to stand X 5 without UE support Goal Progress: Goal Met Goal 5:: Be able to walk around dept with CGA without using her cane with occ head turns without LOB Goal Progress: Progressing Plan Plan: DC PT back to Dr. Vogt Information Discharge Comments: DC PT to [facility] and back to DR. vogt sentence: If there are questions or concerns regarding this patient's physical therapy, please feel free to call me at [phone]. Thank you for the referral of this patient. Sincerely, Stephanie Muniz, MPT Balance/Gait/Functional tests Balance/Special Test Scores Functional Gait Assessment Score: 13 % Disability: 56.6700 Lower Extremity Functional Score: 44 Improvement % Improvement: 0
== END 2023-08-10 19:00 | disposition home or self-care (01) ==
LOC: PT 10:30
PROVIDERS: PCP Family Medicine; Referring Provider Family Medicine; Visit Provider Family Medicine
DX: M62.50 Muscle wasting and atrophy, not elsewhere classified, unspecified site (principal)
CPT/HCPCS: 97110; 97161; 97530

== ENCOUNTER → 2023-08-14 | Outpatient (CLI) | payer MEDICARE, SELFPAY ==
[2023-08-14 14:59] LABS: Bacteria 0 SEEN /hpf (None Seen); Mucous, Urine 0 SEEN /hpf (<or=2+); Red Blood Cells-Urine 0 SEEN /hpf (0-5); Squamous Epithelial Cells - UA 0 SEEN /hpf (5-10); White Blood Cells 0 SEEN /hpf (0-5)
--- OUTSIDE RECORDS SUMMARY | 2023-08-14 17:37 | XMS RPT_ITS | CCD ---
Author Name Unknown Address [address] [place] [address] Organization [facility] Care Team Providers Care Sales Operations Coordinator Name Role Phone Unavailable Primary Care Provider Unavailrogerio LEMUS MD, DR GRAJEDA Attending Unavailable ALLAN SÁNCHEZ, DR GRAJEDA Primary Care Unavailable SALLY CORE ANALYST-C, DUNCAN Hilton Unavailable [phone] LESLY SÁNCHEZ, RACHID Justin Unavailable TAQUERIA GORDON Unavailable Unavailable PHYSICAL THERAPY, CONSULT Unavailable Unavai lable PAIN MANAGEMENT, EDGAR Unavailable Cuca RN, Sisi Unavailable Unavailable BONNY RN, DAYANNA Unavailable Unavailable Laura HANNAH, Jaida Unavailable Unavailab Tucker Nazario MD Unavailable IVÁN MAGALLON Unavailable Unavailable Unavailable Unavailable AMELIA SHAH Primary Care Unavailable AMELIA SHAH Attending Unavailable Tucker LEMUS Consulting Unavailable AMELIA SHAH Admitting Unavailable PROVIDER, UNKNOWN Consulting Unavailable PROVIDER, UNKNOWN Consulting Unavailable PROVIDER, UNKNOWN Consulting Unavailable AMELIA SHAH Primary Care Unavailable AMELIA SHAH Attending Unavailable AMELIA SHAH Admitting Unavailable Tucker LEMUS Consulting Unavailable PROVIDER, UNKNOWN Consulting Unavailable PROVIDER, UNKNOWN Consulting Unavailable PROVIDER, UNKNOWN Consulting Unavailable AMELIA SHAH Primary Care Unavailable AMELIA SHAH Attending Unavailable AMELIA SHAH Admitting Unavailable Tucker LEMUS Consulting Unavailable PROVIDER, UNKNOWN Consulting Unavailable PROVIDER, UNKNOWN Consulting Unavailable PROVIDER, UNKNOWN Consulting Unavailable Medications Current Medications Medication Drug Class(es) Dates Sig (Normalized) Sig (Original) acetaminophen 500 mg oral capsule (4 sources) take 2 capsules by mouth three times daily Tylenol 500 MG Oral Capsule ; 2 three times daily (500 MG) cholecalciferol 0.025 mg oral tablet (4 sources) Vitamin D take 1 tablet by mouth once daily Vitamin D (Cholecalciferol) 25 MCG (1000 UT) Oral Tablet ; 1 daily for Vit D df (25 MCG (1000 UT)) Comments: OTC Completed/Discontinued Medications Medication Drug Class(es) Dates Sig (Normalized) Sig (Original) azelastine hydrochloride 0.137 mg/actuat metered dose nasal spray (4 sources) Histamine-1 Receptor Antagonist Start: 04-07-2022 End: 11-13-2022 azelastine 137 mcg (0.1 %) nasal spray aerosol ; 2 sprays Rachel every 12 hours as needed for rhinitis for 30 days Quantity: 30 {Milliliter} Refills: 11 Ordered: 13-Nov-2022 CAMDEN Thurman Start: 07-Apr-2022 End: 13-Nov-2022 Status: Inactive Comments: Medication taken as needed. Facility will call when needed Problems Active Problems Problem Classification Problem Date Documented Da te Episodic/Chronic Administrative/social admission (12 sources) Advance directive discussed with patient; Translations: [Other specified counseling] Onset: 05-14-2023 05-14-2023 Episodic Past or Other Problems Problem Classification Problem Date Documented Da te Episodic/Chronic Esophageal disorders (4 sources) Esophageal disorders 04-09-2022 Headache; including migraine (4 sources) Headache; including migraine 11-13-2022 Pneumonia (except that caused by tuberculosis or sexually transmitted disease) (4 sources) Pneumonia (except that caused by tuberculosis or sexually transmitted disease) 05-16-2023 Unclassified (4 sources) !Patient notification of lab results - Dr. Lemus. The test(s) that you had done were/was blood work. The results of your testing were stable for your medical condition . You should call our office if you have any questions. 11-18-2022 Unclassified (1 source) Insomnia - The last clinic visit was 5 month(s) ago. Symptoms include difficulty staying asleep, while symptoms do not include daytime sleepiness. 11-13-2022 Unclassified (4 sources) [ADDITIONAL REASON] Osteoarthritis - The last clinic visit was 5 month(s) ago. Note for Osteoarthritis : Feeling good now - no pain 11-13-2022 Unclassified (4 sources) [ADDITIONAL REASON] Alzheimer Disease - The history is reported by a family member. The last clinic visit was 5 month(s) ago. Symptoms include poor memory (at times). 11-13-2022 Unclassified (4 sources) !Patient notification of lab results - Dr. Lemus. The test(s) that you had done were/was a Stress test (This was normal. Please keep the appointment to further discuss the symptoms with the podiatrist assistant.). You should call our office if you have any questions. 07-07-2022 Unclassified (4 sources) !Patient notification of lab results - Dr. Lemus. The test(s) that you had done were/was blood work (There were some minor variations from the lab's reference ranges, but the results were in line with your previous labs (prior to becoming a patient in our office) and I would simply repeat these in 6-12 months). You should call our office if you have any questions. 07-02-2022 Unclassified (4 sources) Chest pain - Note for Chest pain : Pt. reports intermittent chest pain x 2 weeks, often first thing in the morning. Initially pain was only in left breast area, yesterday was mid sternal. Pt. states lasts 2-3 hours and does not occur daily. Denies radiation of pain to left arm or jaw. Pt. family member present and states pt. was at PT on 06/26/22 and they said her O2 sat was low (89-95%). Denies respiratory symptoms, today Sat 91-92% room air. 06-30-2022 Unclassified (3 sources) Alzheimer Disease - The history is reported by a family member (Son Morgan here with pt.). 04-09-2022 Unclassified (3 sources) [ADDITIONAL REASON] Tremor, Essential - Symptoms include tremor, while symptoms do not include quavering voice. 04-09-2022 Unclassified (4 sources) [ADDITIONAL REASON] Back Pain - Note for Back pain : Pt Would like refill of tramadol. Running out today. Unsure of what diagnosis to use? Family said that she takes it due to back pain/hip pain 04-09-2022 Unclassified (4 sources) [ADDITIONAL REASON] Restless leg syndrome - pt on medication for this dx. 04-09-2022 Unclassified (3 sources) [ADDITIONAL REASON] Insomnia - The last clinic visit was 5 month(s) ago. Symptoms include difficulty staying asleep, while symptoms do not include daytime sleepiness. 11-13-2022 Unclassified (1 source) Tremor, Essential - Symptoms include tremor, while symptoms do not include quavering voice. 04-09-2022 Unclassified (1 source) [ADDITIONAL REASON] Alzheimer Disease - The history is reported by a family member (Son Morgan here with pt.). 04-09-2022 Results Test Name Value Interpretation Reference Range Facil ity Vital Signs Date Time Vital Sign Value Performing Clinician Faci lity 05-14-2023 15:37-0500 Body height 156.21 cm Jaida Sanchez RN [facility] [employer] [facility] [employer] [facility]. 05-14-2023 15:37-0500 Body mass index (BMI) [Ratio] 19.61 kg/m2 Jadia [facility] Leyva [employer] [facility]. 05-14-2023 15:37-0500 Body surface area Derived from formula 1.45 m2 Jaida Sanchez RN [facility] [employer] [facility].; [facility] [employer] [facility]. 05-14-2023 15:37-0500 Body weight 47.85 kg Jaida Sanchez [facility] [employer] [facility]. 05-14-2023 15:37-0500 Diastolic blood pressure 68 mm[Hg] Jaida Sanchez RN [facility] [employer] [facility].; [facility] Encounters Encounter Date Encounter Type Care Provider Facility Start: 07-03-2023 End: 07-03-2023 ambulatory [facility] Start: 05-14-2023 End: 05-14-2023 Office outpatient visit 15 minutes DUNCAN DE Work Phone: [employer] [facility] [employer] Start: 11-17-2022 End: 11-17-2022 Results Review DUNCAN DE Work Phone: [employer] Start: 11-13-2022 End: 11-18-[address] NICCI LEMUS MD Facility:A Start: 11-13-2022 End: 11-13-2022 Patient encounter procedure DUNCAN HOAXELTETTER CORE ANALYST-C Work Phone: [employer] Start: 11-13-2022 End: 11-13-2022 Office outpatient visit 15 minutes DUNCAN HOFSTETTER CORE ANALYST-C Work Phone: [employer] Start: 10-23-2022 End: 10-23-2022 ambulatory [facility] Start: 08-04-2022 End: 08-04-2022 Historical Summary DUNCAN HOFSTETTER CORE ANALYST-C Work Phone: [employer] Start: 07-24-2022 End: 07-24-2022 ambulatory [facility] Start: 07-04-2022 End: 07-04-2022 Patient encounter procedure DUNCAN HOAXELTETTER CORE ANALYST-C Work Phone: [employer] Start: 07-01-2022 End: 07-01-2022 Results Review DUNCAN HOFSTETTER CORE ANALYST-C Work Phone: [employer] Start: 06-30-2022 End: 06-30-2022 Lab Only DUNCAN HOFSTETTER CORE ANALYST-C Work Phone: [facility] Start: 06-30-2022 End: 06-30-2022 Office outpatient visit 25 minutes DUNCAN HOFSTETTER CORE ANALYST-C Work Phone: [facility] Start: 04-24-2022 End: 04-24-2022 Phone Encounter DUNCAN HOFSTETTER CORE ANALYST-C [facility] Start: 04-23-2022 End: 04-23-2022 Medication Refill/Order DUNCAN ZAVALA CORE ANALYST-C [facility] Start: 04-07-2022 End: 04-07-2022 Office outpatient new 60 minutes DUNCAN ZAVALA CORE ANALYST-C [facility] Start: 07-03-2020 End: 07-03-2020 Subsequent hospital visit by physician Gerson Adamson Work Phone: [facility] Procedures Date Procedure Procedure Detail Performing Clinician Start: 05-14-2023 End: 05-14-2023 Dischrg meds reconciled w/current med list Tucker LEMUS MD Work Phone: Start: 11-13-2022 End: 11-13-2022 Dischrg meds reconciled w/current med list Tucker LEMUS MD Work Phone: Start: 06-30-2022 End: 06-30-2022 Dischrg meds reconciled w/current med list Tucker LEMUS MD Work Phone: Start: 04-23-2022 End: 04-23-2022 Collj & interpj physiol data min 30 min ea 30 d DAYANNA DRAPER RN Start: 04-07-2022 End: 04-07-2022 Collj & interpj physiol data min 30 min ea 30 d Tucker LEMUS MD Work Phone: Start: 04-07-2022 End: 04-07-2022 Dischrg meds reconciled w/current med list Tucker LEMUS MD Work Phone: Femur fractured at b all. Screws and plates placed IVÁN MAGALLON Plan of Treatment Date Care Activity Detail Author Start: 11-13-2022 Blood occult peroxidase actv qual feces 1 [facility] Start: 11-13-2022 Blood count complete auto&auto difrntl wbc [facility] Start: 06-30-2022 Cv strs tst xers&/or rx cont ecg w/si&r CARDIOVASCULAR STRESS [id number] CAN- WITH IMAGING - (36092) (59402) Start: 30-Jun-2022 [facility] Start: 06-30-2022 Ecg routine ecg w/least 12 lds w/i&r ELECTROCARDIOGRAM, COMPLETE (37103) Start: 30-Jun-2022 [facility] Start: 04-28-2022 Assay of iron [facility]; [facility] [employer] [facility]. Start: 04-28-2022 Blood count complete auto&auto difrntl wbc [facility]; [facility] [employer]. Start: 04-28-2022 Comprehensive metabolic [facility]; [facility] [employer] [facility]. Start: 04-07-2022 Adv care pln tlkd & alt dcsn maker docd ADV CARE PLAN DISCUSSED & DOCUMENTED, SURROGATE OR PLAN IN PLACE ([id number]) Start: 07-Apr-2022 [facility] [employer] [facility]; [facility]. Start: 06-27-2020 Annual Wellness Visit (AWV) Annual Wellness Visit (AWV) [place], [place] Start: 02-14-2020 Influenza vaccination Flu vaccine (#1) [place], [place] Start: 01-18-1996 Screening for osteoporosis DEXA (modify frequency per FRAX score) [place], [place] Start: 1991 Shingles Vaccine (1 of 2) Shingles Vaccine (1 of 2) [place], [place] Start: 01-18-1960 DTaP/Tdap/Td vaccine (1 - Tdap) DTaP/Tdap/Td vaccine (1 - Tdap) [place], [place] Start: 1941 Hepatitis C screening Hepatitis C screen [place], [place] End: 07-03-2020 CT ELBOW LEFT WO CONTRAST CT ELBOW LEFT WO CONTRAST Imaging Routine Other closed displaced fracture of distal end of left humerus, initial encounter 1 Occurrences starting 07/03/2020 until 07/03/2020 [place], [place] Immunizations Immunization Date Immunization Notes Care Provider Fa charanjit 05-14-2023 influenza, injectabl e, quadrivalent, preservative free DUNCAN NELLADEIRDRE CORE ANALYST-C [facility] Phone: [facility]; [facility] Payers Date Payer Category Payer Medicare [id number] 2020 Medicare AETNA MEDICARE A ETNA MEDICARE-ADVANTAGE PPO [id number] 2020-Present [address] [place] [address] Medicare [id number] 1941 Unknown [id number] 1941 Unknown [id number] 1941 Unknown [id number] 1941 Unknown [id number] Social History Date Type Detail Facility Start: 07-03-2020 [facility] [place] Sex Assigned At Not on file [place] Exposure to SARS-CoV -2 (event) Not sure [place] Alcohol Use: Alcohol Use: ; N o Alcohol Use. [email or web address] [place] [employer] [facility]; [facility] Marital status: Marital status: ; . [facility]; [facility] Tobacco use: Tobacco use: ; F ormer smoker. [facility]; [facility] Female [facility]; [facility] Work Phone: [facility]; [facility] Work Phone: Occasional alcohol use [facility]; [facility] Work Phone: Never smoked tobacco [facility]; [facility] Work Phone: Ex-smoker [facility]; [facility] Work Phone: Reason for Referral Status Reason Specialty Diagnoses / Procedures Referred By Contact Referred To Contact Authorized Radiology Diagnoses Other closed displaced fracture of distal end of left humerus, initial encounter Procedures CT ELBOW LEFT WO CONTRAST Gerson Adamson MD [address] [place] [address] [place] [id number] Assessments Diagnosis Other closed displaced fracture of distal end of left humerus, initial encounter Summary Purpose Family History No Family History Records FoundNo Family History Records FoundNo Family History Records Found Advance Directives No Advanced Directives Records FoundNo Advanced Directives Records FoundNo Advanced Directives Records Found Additional Source Comments INFORMATION SOURCE (unrecogn ized section and content) DATE CREATED AUTHOR AUTHOR'S ORGANIZ ATION 12/16/2022 [facility] ([place]) DATE CREATED AUTHOR AUTHOR'S ORGANIZ ATION 07/10/2023 [facility] FOR RECORDS PERTAINING TO PATIENTS WHO ARE OR HAVE BEEN ENROLLED IN A CHEMICAL DEPENDENCY/SUBSTANCEABUSE PROGRAM, SOME INFORMATION MAY BE OMITTED. This clinical summary was aggregated from multiple sources. Caution should be exercised in using it in the provision of clinical care. This summary normalizes information from multiple sources, and as a consequence, information in this document may materially change the coding, format and clinical context of patient data. In addition, data may be omitted in some cases. CLINICAL DECISIONS SHOULD BE BASED ON THE PRIMARY CLINICAL RECORDS. [facility] [employer] [facility]. provides no warranty or guarantee of the accuracy or completeness of information in this document.
[2023-08-14 17:55] LABS: Color, Urine Yellow (Yellow); Glucose, Dipstick Normal (Normal); Ketone-Dipstick Negative (Negative); Leukocyte Esterase-Dipstick Negative /ul (Negative); Nitrite-Dipstick Negative (Negative); Occult Blood-Urine Negative /ul (Negative); Protein-Dipstick Negative (Negative); Urine Bilirubin Dipstick Negative (Negative); Urine Clarity Clear (Clear); Urine Urobilinogen Normal (Normal)
== END | disposition home or self-care (01) ==
LOC: MTLAB 14:50
PROVIDERS: PCP Family Medicine; Referring Provider Psychiatry & Neurology Neurology; Visit Provider Psychiatry & Neurology Neurology
DX: R53.83 Other fatigue (principal); R41.0 Disorientation, unspecified
CPT/HCPCS: 81001; 87086

== ENCOUNTER → 2023-08-17 | Outpatient (CLI) | payer MEDICARE, SELFPAY ==
--- NOTE | 2023-08-17 13:59 | RAD_ITS ---
INDICATION: cough; confusion; Hx of pneumonia EXAMINATION/TECHNIQUE: X-RAY - XR Chest 2 Views COMPARISON: Prior study dated: 04/16/2023 FINDINGS: LINES/DEVICES: None. LUNGS: Persistent patchy opacity/infiltrate in the left lower lung essentially unchanged since prior exam could be due to scarring. No new infiltrate otherwise is seen. No evidence of pleural effusions. MEDIASTINUM AND CARDIOVASCULAR STRUCTURES: Cardiac silhouette not enlarged. Central airways and mediastinal contour are unremarkable. BONES AND SOFT TISSUES: Stable soft tissues and osseous structures. RAD/Chest PA and Lateral IMPRESSION: Patchy opacity/infiltrate in the left lower lung unchanged since prior exam could be due to scarring. Recurrent pneumonia is possible. Electronically Signed: Vignesh Sanches MD at 14:25 EST ,
[2023-08-17 15:05] LABS: Hematocrit 37.9 % (37-47); Hemoglobin 11.7 g/dL (12.0-15.0); Mean Corp Hgb Conc 30.9 g/dL (32-36); Mean Corpuscular Hgb 27.1 pg (27.0-32.0); Mean Corpuscular Volume 87.7 fL (81-99); Mean Platelet Vol. 8.6 fl (6.2-12.0); Platelet Count 440 K/mm3 (150-450); RBC Distribution Width CV 14.7 % (11.6-14.6); RBC Distribution Width SD 47.1 fl (35.1-43.9); Red Blood Count 4.32 M/mm3 (4.2-5.4)
[2023-08-17 15:53] LABS: ALB/GLOB Ratio 0.7 RATIO (0.9-2.4); AST(SGOT) 19 U/L (15-37); Alanine Aminotransfer ALT/SGPT 17 U/L (13-56); Alkaline Phosphatase 138 U/L (45-117); Anion Gap 5 (5-15); BUN 17 mg/dL (7-18); BUN/Creat Ratio 17.8 RATIO (10-20); Calcium,Total 9.9 mg/dL (8.5-10.1); Chloride 104 mmol/L (98-107); Creatinine, Serum 0.96 mg/dL (0.55-1.02); EST Glomerular Filtration Rate 59 mL/min (>60); Est Glom Filt Rate - Afr Amer 72 mL/min (>60); Globulin 4.2 g/dL (2.2-4.2); Glucose 92 mg/dL (74-106); Potassium 3.9 mmol/L (3.5-5.1); Protein, Total 7.2 g/dL (6.4-8.2); Sodium Level 138 mmol/L (136-145)
== END | disposition home or self-care (01) ==
PROVIDERS: PCP Family Medicine; Referring Provider Psychiatry & Neurology Neurology; Visit Provider Psychiatry & Neurology Neurology
DX: R05.9 Cough, unspecified (principal); R41.0 Disorientation, unspecified
CPT/HCPCS: 36415; 71046; 80053; 85027

== ENCOUNTER 2024-05-30 09:24 | Emergency (ER) | payer MEDICARE, SELFPAY ==
[2024-05-30 09:25] VITALS: BP 124/70; PULSE 55; RESP 16; TEMP 36.7; O2SAT 97
[2024-05-30 09:27] VITALS: BP 124/70; PULSE 62; RESP 15; TEMP 36.7; O2SAT 97
[2024-05-30 09:58] LABS: Absolute Lymphocyte Count 0.79 X10^3/uL (0.83-4.51); Absolute Neutrophil Count 3.5 X10^3/uL (2.0-7.7); Basophil# 0.03 X10^3/uL; Basophil% 0.6 % (0-1); Eosinophil# 0.02 X10^3/uL; Eosinophils% 0.4 % (0-5); Hematocrit 35.5 % (37-47); Hemoglobin 10.5 g/dL (12.0-15.0); Lymphocyte # 0.79 X10^3/ul (0.83-4.51); Lymphocyte % 14.9 % (19-41); Mean Corp Hgb Conc 29.6 g/dL (32-36); Mean Corpuscular Hgb 25.5 pg (27.0-32.0); Mean Corpuscular Volume 86.4 fL (81-99); Mean Platelet Vol. 8.5 fl (6.2-12.0); Monocyte# 0.99 X10^3/uL; Monocyte% 18.6 % (0-10); NRBC Flagged by Analyzer 0 % (0-5); Neutrophil # 3.46 X10^3/uL (2.7-7.7); Neutrophil % 65.1 % (47-70); Platelet Count 344 K/mm3 (150-450); RBC Distribution Width CV 14.6 % (11.6-14.6); RBC Distribution Width SD 46.4 fl (35.1-43.9); Red Blood Count 4.11 M/mm3 (4.2-5.4); White Blood Count 5.3 K/mm3 (4.4-11.0)
[2024-05-30 10:13] LABS: Red Blood Cells-Urine 0 SEEN /hpf (0-5)
--- NOTE | 2024-05-30 10:15 | RAD_ITS ---
STUDY: X-RAY CHEST REASON FOR EXAM: Female, 84 years old. Cough, rales left lower lobe, subjective fever TECHNIQUE: PA and lateral views of the chest. COMPARISON: Comparison is made with prior study dated August 17, 2023. FINDINGS: EKG electrodes are seen. Persistent patchy infiltrate in the lingular segment of the left upper lobe. This has progressed slightly as compared to prior study. Stable scarring in the right lung. The lungs are clear and expanded. There is no demonstrated pleural abnormality. Normal size heart. Normal mediastinum and queenie. Normal visualized pulmonary arteries. There is atherosclerotic calcification of the aortic arch with tortuosity. There is demineralization of the osseous structures. Increased kyphosis. Normal visualized ribs, clavicles, and shoulders. There is no demonstrated abnormality of the visualized soft tissue structures of the upper abdomen. RAD/Chest PA and Lateral IMPRESSION: Progressive lingular infiltrate. Electronically Signed: Luke Kumar MD at 10:38 EST ,
[2024-05-30 10:16] LABS: Color, Urine Yellow (Yellow); Glucose, Dipstick Normal (Normal); Ketone-Dipstick Negative (Negative); Leukocyte Esterase-Dipstick Negative /ul (Negative); Nitrite-Dipstick Negative (Negative); Occult Blood-Urine Negative /ul (Negative); Protein-Dipstick 30 mg/dl (Negative); Urine Bilirubin Dipstick Negative (Negative); Urine Clarity Clear (Clear); Urine Urobilinogen Normal (Normal); Urine pH 6.5 (5.0 - 8.0)
[2024-05-30 10:22] LABS: Bacteria 1+ /hpf (None Seen); Squamous Epithelial Cells - UA 0-5 SEEN /hpf (5-10); White Blood Cells 0-5 SEEN /hpf (0-5)
[2024-05-30 10:23] LABS: ALB/GLOB Ratio 0.8 RATIO (0.9-2.4); AST(SGOT) 22 U/L (15-37); Alanine Aminotransfer ALT/SGPT 15 U/L (13-56); Alkaline Phosphatase 124 U/L (45-117); Anion Gap 5 (5-15); BUN 15 mg/dL (7-18); BUN/Creat Ratio 13.4 RATIO (10-20); Calcium,Total 8.9 mg/dL (8.5-10.1); Chloride 105 mmol/L (98-107); Creatinine, Serum 1.12 mg/dL (0.55-1.02); EST Glomerular Filtration Rate 49 mL/min (>60); Est Glom Filt Rate - Afr Amer 60 mL/min (>60); Globulin 3.9 g/dL (2.2-4.2); Glucose 108 mg/dL (74-106); Lactic Acid 1.6 mmol/L (0.4-1.9); Potassium 3.5 mmol/L (3.5-5.1); Protein, Total 6.9 g/dL (6.4-8.2); Sodium Level 137 mmol/L (136-145)
[2024-05-30 10:23] LABS: Mucous, Urine RARE /hpf (<or=2+)
[2024-05-30 10:27] VITALS: BP 139/59; PULSE 48; RESP 18; TEMP 36.9; O2SAT 95
--- NOTE | 2024-05-30 10:33 | EDS_ITS ---
HPI History of Present Illness Chief Complaint: Edema Detail of Chief Complaint: Edema. Son is concerned because of increased confusion and frequency Informant: family Onset/Context/Timing Onset: Yesterday Context: Sudden Onset Timing: Continuous Quality: Swelling has been present for several days. Patient sitting more than norm Current Severity: Worse per son otherwise unable to quantitate or qualitative Maximum Severity: Unable to determine Worsened by: unable to determine Relieved by: Unable to determine Associated Symptoms Associated Symptoms: Slight cough per son. Narrative Narrative: Patient is an 84-year-old woman with history dementia who sees Dr. Curtis. Office records were reviewed. Patient essentially denies everything. The primary informant was the son. He states she had a change in her confusion yesterday. She has had slight cough and apparently has been urinating more. Patient attempted to give specimen was unable. Prior similar symptoms: Yes (When she has a urinary tract infection) Recent Illness/Hospitalization: No PFSH PFSH Medical History Dementia Essential tremor Restless leg syndrome Wears hearing aid in both ears Anxiety Former smoker Hypertension Cognitive decline Chronic low back pain Fracture of left humerus History of ovarian cyst Hyperlipemia History of wrist fracture GERD (gastroesophageal reflux disease) Osteoporosis Acid reflux Anemia Home Medications ?Medication ?Instructions ?Recorded ?Last Taken ?Type tramadol 50 mg tablet 50 mg PO Q8H PRN Pain 02/11/22 Unknown History acetaminophen 325 mg tablet 650 mg (2 x 325 mg) PO Q4H PRN PRN 04/23/23 Unknown Rx Fever, pain 1-03/24 #30 tabs food supplemt, lactose-reduced 120 ml PO 4X/DAY #0 mL 04/23/23 Unknown Rx 0.08 gram-1.5 kcal/mL oral liquid (Ensure Plus High Protein) menthol 0.44 %-zinc oxide 20.6 % 1 applic topical 4X/DAY #0 grams 04/23/23 Unknown Rx topical ointment (Calmoseptine) sennosides 8.6 mg-docusate sodium 2 tab PO BID PRN PRN Constipation 04/23/23 Unknown Rx 50 mg tablet (Stool #0 tabs Softener-Stimulant Laxative) tramadol 50 mg tablet 50 mg PO Q8H PRN PRN Pain Score 04/23/23 Unknown Rx 4-10 #60 tabs calcium 250 mg (as 1 tab PO TID Supplement #90 tabs 01/20/24 Unknown Rx citrate)-vitamin D3 5 mcg (200 unit) tablet cholecalciferol (vitamin D3) 25 25 mcg PO DAILY #30 tabs 01/20/24 Unknown Rx mcg (1,000 unit) tablet (Vitamin D3) donepezil 10 mg tablet 10 mg PO QHS #30 tabs 01/20/24 Unknown Rx memantine 10 mg tablet 10 mg PO BID #60 tabs 01/20/24 Unknown Rx mirtazapine 7.5 mg tablet 7.5 mg PO QHS #30 tabs 01/20/24 Unknown Rx pramipexole 0.5 mg tablet 0.5 mg PO QHS #30 tabs 01/20/24 Unknown Rx propranolol 20 mg tablet 20 mg PO .COMPLEX #120 tabs 02/23/24 Unknown Rx cephalexin 500 mg capsule 500 mg PO Q6 #28 CAPSULES 05/30/24 Unknown Rx Allergy/AdvReac Type Severity Reaction Status Date / Time No Known Allergies Allergy Verified 05/30/24 09:28 Family History Grandmother Colon cancer Father Colon cancer Heart disease Brother Colon cancer Heart disease Mother Heart disease High cholesterol Surgical History History of orthopedic surgery History of hip surgery History of carpal tunnel surgery of left wrist Social History household members: none Smoking Status: Former smoker how long ago did patient quit smokin second hand exposure: No alcohol intake: never substance use type: does not use what type of physical activity do you participate in: other details: PT frequency: 1-2 times per week herrera/mu-ism: Jehovah'S Witness seatbelt use: always ROS ROS ED Review of Systems ROS Unobtainable: due to mental status and other Details: Review of systems limited to what is documented HPI narrative per son. As noted the son is the primary informant since patient has dementia and is not forthcoming per son. EXAM Physical Exam Const Vital Signs: 05/30/24 09:25 05/30/24 09:27 05/30/24 10:27 Temperature 98.1 F 98.1 F 98.4 F Temperature Source Temporal Temporal Oral Pulse Rate 55 L 62 48 L Respiratory Rate 16 15 18 Blood Pressure 124/70 H 124/70 H 139/59 H Blood Pressure Mean 88 88 85 Pulse Ox 97 97 95 Oxygen Delivery Method Room Air Room Air Room Air Positive well nourished and well developed General Appearance ED: well developed and NAD; Negative for pallor HEENT Reports moist mucous membranes HEENT Narrative: Head is atraumatic no cephalic. Patient is hard of hearing. Nares patent. Posterior pharynx is normal. Eyes PERRL and EOMs intact bilaterally General Eye ED: Negative for pale conjunctiva or scleral icterus Neck no lymphadenopathy, supple and no JVD Chest Wall palpation of chest normal Resp normal respiratory effort and No clear to auscultation bilaterally Resp Narrative: Patient has rales left lower lobe posteriorly. Cardio regular rhythm, S1 normal heart sound, S2 normal heart sound and no murmurs Rate: bradycardia GI normal to inspection, nondistended, normoactive bowel sounds, non-tender, non- distended and no masses; Negative for hepatosplenomegaly Palpation: soft Back/Spine no CVA tenderness Extremity General Extremety ED: Yes edema General Extremity: edema Neuro No oriented x3 and CN's II-XII intact bilaterally Sensorium / Orientation: alert Psych mental status grossly normal Skin no rashes or lesions noted and no wounds General Skin Exam: Negative for jaundice or pallor MDM MDM MDM Narrative Medical decision making narrative: Difficult to assess this patient who has mild dementia. She is slightly more confused. Son states she has been urinating more and going small amounts. She also has a cough which she denies. Son states she normally tells a doctor she has no symptoms because she does not want to be admitted. Prior records were reviewed.Patient was admitted April 2023 for urinary tract infection. Dr. Wesley Posada's discharge summary was reviewed. History & Record Review Additional record(s) reviewed:: Prior inpatient record (April 2023 for urinary tract infection), Prior outpatient record (March 2023 office visit for UTI.), Prior ED visit (ER visits were reviewed. Dating back to February 2022. She is seen by Dr. Yariel Salas for her dementia.) and Prior labs Lab Data Attestation: I reviewed the patient's lab results. Lab results narrative: White count is normal. Patient has mild anemia. Comprehensive metabolic panel is unremarkable. Creatinine slight elevated 1.12 with an estimated GFR 49. Urinalysis reveals no significant [place] on the macro. There is 1+ bacteria noted. Labs: Laboratory Results - last 24 hr 05/30/24 05/30/24 09:50 10:08 WBC 5.3 RBC 4.11 L Hgb 10.5 L Hct 35.5 L MCV 86.4 MCH 25.5 L MCHC 29.6 L RDW Std Deviation 46.4 H RDW Coeff of Tiffanie 14.6 Plt Count 344 MPV 8.5 Immature Gran % (Auto) 0.400 Neut % (Auto) 65.1 Lymph % (Auto) 14.9 L [place] % (Auto) 18.6 H Eos % (Auto) 0.4 Baso % (Auto) 0.6 Absolute Neuts (auto) 3.5 Absolute Lymphs (auto) 0.79 L Nucleated RBC % 0 Sodium 137 Potassium 3.5 Chloride 105 Carbon Dioxide 27.0 Anion Gap 5 BUN 15 Creatinine 1.12 H Est GFR (MDRD) Af Amer 60 Est GFR (MDRD) Non-Af 49 L BUN/Creatinine Ratio 13.4 Glucose 108 H Lactic Acid 1.6 Calcium 8.9 Total Bilirubin 0.40 AST 22 ALT 15 Alkaline Phosphatase 124 H Total Protein 6.9 Albumin 3.0 L Globulin 3.9 Albumin/Globulin Ratio 0.8 L Urine Color Yellow Urine Clarity Clear Urine pH 6.5 Ur Specific [place] 1.010 Urine Protein 30 H Urine Glucose (UA) Normal Urine Ketones Negative Urine Occult Blood Negative Urine Nitrite Negative Urine Bilirubin Negative Urine Urobilinogen Normal Ur Leukocyte Esterase Negative Urine RBC 0 SEEN Urine WBC 0-5 SEEN Ur Squamous Epith Cells 0-5 SEEN Urine Bacteria 1+ Urine Mucus RARE Radiography Chest X-Ray - ED: 2 View and Read by ED Physician ([id number]. There are chronic changes. There is a patchy infiltrate left lower lobe which is unchanged from August 2023 which is unchanged from prior chest x-ray obtained April 16, 2023. Cardiac silhouette is slightly obscured on the left heart border. Hilum is unremarkable. Osseous structures revea) Diagnostic Testing: Clinical Impression(s) from Imaging Studies Chest X-Ray 05/30/24 10:15 IMPRESSION: Progressive lingular infiltrate. Electronically Signed: Luke Kumar MD at 10:38 EST , Differential Diagnosis Chest pain/SOB: ACS ACS: Positive for EKG without ischemia and history not suggestive of ischemia pain, pneumothorax Reason(s) pneumothorax less likely: Positive for bilateral breath sounds and RESTORATION SILVERSMITH withhout PTX, pneumonia Reason(s) pneumonia less likely: Positive for no elevation in WBC count, no noted fever and other (Chronic abnormality left lower lobe unchanged from April of last year.) and CHF Reason(s) CHF less likely: Positive for no orthopnea and no evidence of fluid overload on CXR Treatment and Re-Evaluation :: Send was told of results. Patient be treated with antibiotic for presumed urinary tract infection since she has bacteria and frequency. She was not placed on antibiotics for the lung findings and since has been present since April 2023. Discharge Plan Triage Chief Complaint: Edema ED Provider: Blake Juarez Dx/Rx/DC Orders Clinical Impression: Urinary tract infection, Hyperlipemia, Acute alteration in mental status, History of dementia, Infiltrate of lower lobe of left lung present on imaging study, Sinus bradycardia seen on environmental monitoring specialist Instructions: ED Cystitis Female Adult Prescriptions: New cephalexin 500 mg capsule 500 mg PO Q6 Qty: 28 0RF No Action tramadol 50 mg tablet 50 mg PO Q8H PRN (Reason: Pain) donepezil 10 mg tablet 10 mg PO QHS Qty: 30 6RF memantine 10 mg tablet 10 mg PO BID Qty: 60 6RF mirtazapine 7.5 mg tablet 7.5 mg PO QHS Qty: 30 6RF pramipexole 0.5 mg tablet 0.5 mg PO QHS Qty: 30 6RF calcium citrate-vitamin D3 250 mg-5 mcg (200 unit) tablet 1 tab PO TID Qty: 90 6RF cholecalciferol (vitamin D3) [Vitamin D3] 25 mcg (1,000 unit) tablet 25 mcg PO DAILY Qty: 30 6RF acetaminophen 325 mg Tablet 650 mg PO Q4H PRN PRN (Reason: Fever, pain 1-03/24) Qty: 30 0RF sennosides-docusate sodium [Stool Softener-Stimulant Laxat] 8.6-50 mg Tablet 2 tab PO BID PRN PRN (Reason: Constipation) Qty: 0 0RF tramadol 50 mg Tablet 50 mg PO Q8H PRN PRN (Reason: Pain Score 4-10) Qty: 60 0RF menthol-zinc oxide [Calmoseptine] 0.44-20.6 % Ointment 1 applic topical 4X/DAY Qty: 0 0RF Protocol: *Topical Application Instructions APPLICATION INSTRUCTIONS: apply to affected region Ensure Plus High Protein 0.08 gram-1.5 kcal/mL Liquid 120 ml PO 4X/DAY Qty: 0 0RF propranolol 20 mg tablet 20 mg PO .COMPLEX Qty: 120 6RF Rx Instructions: Take 2 tablets orally every morning, 1 tablet daily at noon and 1 tablet q5 p.m. Primary Care Provider: Gogo Ro Referrals: Gogo Ro MD [Primary Care Provider] - 3-5 Days if not improving Print Language: South Sudanese Disposition Disposition: Home, Self Care
[2024-05-30 11:49] VITALS: BP 138/48; PULSE 77; RESP 18; TEMP 36.8; O2SAT 97
[2024-05-30] MEDS: Cephalexin 500 MG Capsule PO (11:52)
== END 2024-05-30 12:08 | disposition home or self-care (01) ==
PROVIDERS: Emergency Provider Emergency Medicine; PCP Family Medicine; Visit Provider Emergency Medicine
DX: R60.9 Edema, unspecified (principal); F03.90 Unspecified dementia, unspecified severity, without behavioral disturbance, psychotic disturbance, mood disturbance, and anxiety; N39.0 Urinary tract infection, site not specified; R41.82 Altered mental status, unspecified; E78.5 Hyperlipidemia, unspecified; I10 Essential (primary) hypertension; Z87.891 Personal history of nicotine dependence; R00.1 Bradycardia, unspecified; R91.8 Other nonspecific abnormal finding of lung field; Z79.899 Other long term (current) drug therapy
CPT/HCPCS: 71046; 80053; 81001; 83605; 85025; 99285; P9612; A4216

== ENCOUNTER 2024-06-07 10:03 | Observation (INO) | payer MEDICARE, SELFPAY ==
[2024-06-07] VITALS (10 sets, daily range): BP systolic 131–164; BP diastolic 52–88; PULSE 48–88; RESP 14–20; TEMP 36.5–37; O2SAT 92–96; BMI 16.7
--- NOTE | 2024-06-07 10:33 | EKG12_ITS ---
Test Reason : WEAKNESS Blood Pressure : */* mmHG Vent. Rate : 52 BPM Atrial Rate : 52 BPM P-R Int : 150 ms QRS Dur : 134 ms QT Int : 506 ms P-R-T Axes : 67 -39 75 degrees QTcB Int : 470 ms Sinus bradycardia Left axis deviation Left bundle branch block Abnormal ECG Confirmed by DEREK SÁNCHEZ, FATEMEH ([id number]), greeting card editor BRAD DOCKERY ([id number]) on 06/09/2024 2:15:14 PM Referred By: Confirmed By: FATEMEH REED MD
--- NOTE | 2024-06-07 10:36 | EX.ED.DYSGE1 ---
HPI History of Present Illness Chief Complaint: General Illness Informant: family Narrative Narrative: 84-year-old female brought to the emergency department by her son with a chief complaint of generalized weakness generalized body pain and chills. He tells me that she was in the emergency department last Thursday and was diagnosed with a possible UTI and was prescribed an antibiotic which she finished yesterday. He states that she continues to feel cold has had decreased activity and notes generalized bodyaches. He notes a cough which is not new. No documented fevers vomiting or diarrhea. She does not want to come out of her room recently. She has a history of dementia and tremor. She has chronic back pain for which she takes Ultram. There is been no report of change in her back pain. Family denies any skin rashes or sores. Family states that she typically weighs around 105 pounds. The weight on the bed currently is reading 106.8. [facility] Medical History (Updated 06/07/24 @ 14:05 by Sisi Wilkinson) Chronic pain Dementia Dementia Essential tremor Restless leg syndrome Wears hearing aid in both ears Anxiety Former smoker Hypertension Cognitive decline Chronic low back pain Fracture of left humerus History of ovarian cyst Hyperlipemia History of wrist fracture GERD (gastroesophageal reflux disease) Osteoporosis Acid reflux Anemia Home Medications ?Medication ?Instructions ?Recorded ?Last Taken ?Type tramadol 50 mg tablet 50 mg PO Q8H PRN Pain 02/11/22 Unknown History acetaminophen 325 mg tablet 650 mg (2 x 325 mg) PO Q4H PRN PRN 04/23/23 Unknown Rx Fever, pain 1-03/24 #30 tabs menthol 0.44 %-zinc oxide 20.6 % 1 applic topical 4X/DAY #0 grams 04/23/23 Unknown Rx topical ointment (Calmoseptine) sennosides 8.6 mg-docusate sodium 2 tab PO BID PRN PRN Constipation 04/23/23 Unknown Rx 50 mg tablet (Stool #0 tabs Softener-Stimulant Laxative) calcium 250 mg (as 1 tab PO TID Supplement #90 tabs 01/20/24 Unknown Rx citrate)-vitamin D3 5 mcg (200 unit) tablet cholecalciferol (vitamin D3) 25 25 mcg PO DAILY #30 tabs 01/20/24 Unknown Rx mcg (1,000 unit) tablet (Vitamin D3) donepezil 10 mg tablet 10 mg PO QHS #30 tabs 01/20/24 Unknown Rx memantine 10 mg tablet 10 mg PO BID #60 tabs 01/20/24 Unknown Rx pramipexole 0.5 mg tablet 0.5 mg PO QHS #30 tabs 01/20/24 Unknown Rx propranolol 20 mg tablet 20 mg PO .COMPLEX #120 tabs 02/23/24 Unknown Rx Allergy/AdvReac Type Severity Reaction Status Date / Time No Known Allergies Allergy Verified 06/07/24 10:05 Family History Grandmother Colon cancer Father Colon cancer Heart disease Brother Colon cancer Heart disease Mother Heart disease High cholesterol Surgical History History of orthopedic surgery History of hip surgery History of carpal tunnel surgery of left wrist Social History household members: none Smoking Status: Former smoker how long ago did patient quit smokin second hand exposure: No alcohol intake: never substance use type: does not use what type of physical activity do you participate in: other details: PT frequency: 1-2 times per week herrera/moravian: Hinduism seatbelt use: always ROS ROS ED ROS Narrative Generalized weakness Constitutional Constitutional ED: Reports chills; Denies fever(s), sweats or weight loss Eyes Eyes: Denies change in vision or diplopia ENT ENT ED: Denies ear pain, rhinorrhea or sore throat Cardiovascular Cardiovascular: Denies chest pain, orthopnea, palpitations or racing heartbeat Respiratory/Chest Respiratory/Chest: Reports cough; Denies dyspnea or orthopnea Gastrointestinal Gastrointestinal: Denies abdominal pain, diarrhea, nausea or vomiting Genitourinary Genitourinary ED: Denies dysuria, hematuria or urinary frequency Musculoskeletal Musculoskeletal: Reports arthralgias and myalgias Integumentary Denies abscess or rash Neurologic Neurologic: Denies headache(s) or weakness Psychiatric Psychiatric: Denies anxiety, depression, suicidal ideation or suicidal thoughts Endocrine Endocrinology: Denies polydipsia, polyphagia or polyuria Allergic/Immunologic Allergic/Immunologic ED: Denies mouth swelling, tongue swelling or urticaria EXAM Physical Exam Const Vital Signs: 06/07/24 10:05 06/07/24 11:16 06/07/24 12:16 Temperature 97.7 F L 97.7 F L Temperature Source Oral Oral Pulse Rate 52 L 68 Pulse Rate [Lying] 58 L Pulse Rate [Sitting (for 1 minute prior to obtaining)] 59 L Pulse Rate [Standing (for 1 minute prior to obtaining)] 64 Respiratory Rate 16 18 Blood Pressure 150/74 H 140/52 H Blood Pressure [Lying] 141/79 H Blood Pressure [Sitting (for 1 minute prior to obtaining)] 151/69 H Blood Pressure [Standing (for 1 minute prior to obtaining)] 157/68 H Blood Pressure Mean 99 81 Blood Pressure Mean [Lying] 99 Blood Pressure Mean [Sitting (for 1 minute prior to obtaining)] 96 Blood Pressure Mean [Standing (for 1 minute prior to obtaining)] 97 Pulse Ox 96 94 Oxygen Delivery Method Room Air Room Air 06/07/24 12:17 06/07/24 13:30 06/07/24 14:03 Temperature 98.1 F 98.1 F 98.5 F Temperature Source Oral Oral Pulse Rate 62 52 L 68 Pulse Rate [Lying] Pulse Rate [Sitting (for 1 minute prior to obtaining)] Pulse Rate [Standing (for 1 minute prior to obtaining)] Respiratory Rate 14 18 14 Blood Pressure 149/59 H 142/88 H 139/72 H Blood Pressure [Lying] Blood Pressure [Sitting (for 1 minute prior to obtaining)] Blood Pressure [Standing (for 1 minute prior to obtaining)] Blood Pressure Mean 89 106 94 Blood Pressure Mean [Lying] Blood Pressure Mean [Sitting (for 1 minute prior to obtaining)] Blood Pressure Mean [Standing (for 1 minute prior to obtaining)] Pulse Ox 94 94 94 Oxygen Delivery Method Room Air Room Air Positive well nourished and well developed General Appearance ED: well developed and NAD HEENT Reports normocephalic, head/scalp atraumatic and moist mucous membranes Eyes PERRL and EOMs intact bilaterally Neck no lymphadenopathy, supple and no JVD Resp normal respiratory effort and clear to auscultation bilaterally Cardio regular rate, regular rhythm and no murmurs GI normal to inspection, nondistended, normoactive bowel sounds and non-tender Palpation: soft Back/Spine no CVA tenderness and normal ROM Extremity normal to inspection General Extremety ED: Negative for edema General Extremity: Negative for edema Neuro CN's II-XII intact bilaterally Neuro Narrative: Patient states over and over again that she is cold. She is able to follow commands such as opening her mouth placing the thermometer under her tongue. She moves all extremities. Sensorium / Orientation: alert Motor Exam: general weakness Psych Psych Narrative: Unable to assess Skin no rashes or lesions noted and no wounds MDM MDM MDM Narrative Medical decision making narrative: Differential diagnosis includes but not limited to dehydration electrolyte abnormality pneumonia UTI stroke anemia Patient's white count 6.4 hemoglobin 10.4. BMP LFTs lipase within normal limits. Troponin 9 urinalysis no overt infection. My independent interpretation of the chest x-ray is chronic changes. No significant change from prior. Patient is COVID-[address] of the brain was obtained which shows no acute findings. CTA of the chest was obtained. Please see radiologist read for full details. Patient has been coughing up some phlegm since she has been here. She appears much more alert after IV fluid bolus. She has some underlying dementia. Orthostatics were negative but nursing notes that she seemed very unsteady on her feet and questions for safety at home. I spoke with her son. We discussed the above findings including the chest CT. I spoke with her hospitalist. Plan is going to be admission tonight. We have not administered antibiotics yet. I did discuss this directly with the hospitalist and renal hold antibiotics at this time she does not have fever does not have a white count and is COVID-19 positive. History & Record Review Discussion w/independent historian: Patient Additional record(s) reviewed:: Prior labs Lab Data Attestation: I reviewed the patient's lab results. Labs: Laboratory Results - last 24 hr 06/07/24 06/07/24 06/07/24 10:30 10:55 11:10 WBC 6.4 RBC 4.04 L Hgb 10.4 L Hct 34.6 L MCV 85.6 MCH 25.7 L MCHC 30.1 L RDW Std Deviation 44.9 H RDW Coeff of Tiffanie 14.5 Plt Count TNP MPV 9.8 Immature Gran % (Auto) 0.600 Neut % (Auto) 65.9 Lymph % (Auto) 19.7 [place] % (Auto) 11.0 H Eos % (Auto) 2.2 Baso % (Auto) 0.6 Absolute Neuts (auto) 4.2 Absolute Lymphs (auto) 1.26 Nucleated RBC % 0 Platelet Estimate ADEQUATE PT 12.2 INR 0.9 APTT 21.3 L Sodium 138 Potassium 4.1 Chloride 104 Carbon Dioxide 28.0 Anion Gap 6 BUN 14 Creatinine 0.97 Est GFR (MDRD) Af Amer 71 Est GFR (MDRD) Non-Af 58 L BUN/Creatinine Ratio 14.4 Glucose 88 Lactic Acid 1.1 Calcium 8.8 Total Bilirubin 0.40 Direct Bilirubin 0.08 AST 25 ALT 18 Alkaline Phosphatase 106 Troponin I High Sens 9 Total Protein 6.6 Albumin 2.7 L Globulin 3.9 Lipase 75 Urine Color Yellow Urine Clarity Clear Urine pH 7.0 Ur Specific [place] 1.010 Urine Protein Negative Urine Glucose (UA) Normal Urine Ketones Negative Urine Occult Blood 10 H Urine Nitrite Negative Urine Bilirubin Negative Urine Urobilinogen Normal Ur Leukocyte Esterase Negative Urine RBC 0-5 SEEN Urine WBC 0 SEEN Ur Squamous Epith Cells 0-5 SEEN Urine Bacteria 0 SEEN Urine Mucus 0 SEEN Radiography Diagnostic Testing: Clinical Impression(s) from Imaging Studies Chest X-Ray 06/07/24 10:37 IMPRESSION: No change from 05/30/2024. Electronically Signed: Clarence Sandhu MD at 11:04 EST , Brain CT 06/07/24 11:34 IMPRESSION: No acute intracranial process identified. Chronic involutional and white matter changes. Electronically Signed: Talia Ravi MD at 12:21 EST , Chest CT 06/07/24 11:34 IMPRESSION: Multiple cavitary and noncavitary nodules with regions of consolidation, groundglass opacity, and tree-in-bud nodular opacities throughout the bilateral lungs concerning for necrotizing pneumonia or atypical infection such as mycobacterial or fungal pneumonia in the acute setting. Granulomatous disease, metastases, or septic emboli could have a similar appearance with a 5.6 cm cavitary mass in the left lower lobe. Recommend close short-term interval follow-up to exclude neoplastic etiologies. Mildly enlarged mediastinal lymph node, which may be reactive. Mild 4.3 cm dilatation of the ascending aorta. Electronically Signed: Talia Ravi MD at 12:38 EST , EKG Initial EKG: Attestation: I personally reviewed and interpreted this EKG as follows: Comments: Sinus bradycardia with left bundle branch block (left bundle branch block is known) Management Discussion w/another healthcare provider: Hospitalist (Dr Villagran) Discharge Plan Triage Chief Complaint: General Illness ED Provider: Dennis Pitts Dx/Rx/DC Orders Clinical Impression: Generalized weakness, COVID-19 Prescriptions: No Action tramadol 50 mg tablet 50 mg PO Q8H PRN (Reason: Pain) donepezil 10 mg tablet 10 mg PO QHS Qty: 30 6RF memantine 10 mg tablet 10 mg PO BID Qty: 60 6RF pramipexole 0.5 mg tablet 0.5 mg PO QHS Qty: 30 6RF calcium citrate-vitamin D3 250 mg-5 mcg (200 unit) tablet 1 tab PO TID Qty: 90 6RF cholecalciferol (vitamin D3) [Vitamin D3] 25 mcg (1,000 unit) tablet 25 mcg PO DAILY Qty: 30 6RF acetaminophen 325 mg Tablet 650 mg PO Q4H PRN PRN (Reason: Fever, pain 1-03/24) Qty: 30 0RF sennosides-docusate sodium [Stool Softener-Stimulant Laxat] 8.6-50 mg Tablet 2 tab PO BID PRN PRN (Reason: Constipation) Qty: 0 0RF menthol-zinc oxide [Calmoseptine] 0.44-20.6 % Ointment 1 applic topical 4X/DAY Qty: 0 0RF Protocol: *Topical Application Instructions APPLICATION INSTRUCTIONS: apply to affected region propranolol 20 mg tablet 20 mg PO .COMPLEX Qty: 120 6RF Rx Instructions: Take 2 tablets orally every morning, 1 tablet daily at noon and 1 tablet q5 p.m. Primary Care Provider: Gogo Ro Referrals: Gogo Ro MD [Primary Care Provider] - Print Language: Macedonian
--- NOTE | 2024-06-07 10:37 | RAD_ITS ---
STUDY: X-RAY CHEST REASON FOR EXAM: Female, 84 years old. cough TECHNIQUE: Single AP portable view of the chest. COMPARISON: 05/30/2024 FINDINGS: There is hyperinflation of the lungs consistent with chronic obstructive lung disease (COPD). No change in alveolar opacity in the lower left lung consistent with left lower lobe pneumonia or scarring. There is no demonstrated pleural abnormality. Normal size heart. Normal mediastinum and queenie. Normal visualized pulmonary arteries. Normal visualized aortic arch and descending thoracic aorta. Normal visualized thoracic spine. Normal visualized ribs, clavicles, and shoulders. There is no demonstrated abnormality of the visualized soft tissue structures of the upper abdomen. RAD/Chest 1 View (Portable) IMPRESSION: No change from 05/30/2024. Electronically Signed: Clarence Sandhu MD at 11:04 EST ,
[2024-06-07 10:43] LABS: Absolute Lymphocyte Count 1.26 X10^3/uL (0.83-4.51); Absolute Neutrophil Count 4.2 X10^3/uL (2.0-7.7); Basophil# 0.04 X10^3/uL; Basophil% 0.6 % (0-1); Eosinophil# 0.14 X10^3/uL; Eosinophils% 2.2 % (0-5); Hematocrit 34.6 % (37-47); Hemoglobin 10.4 g/dL (12.0-15.0); Lymphocyte # 1.26 X10^3/ul (0.83-4.51); Lymphocyte % 19.7 % (19-41); Mean Corp Hgb Conc 30.1 g/dL (32-36); Mean Corpuscular Hgb 25.7 pg (27.0-32.0); Mean Corpuscular Volume 85.6 fL (81-99); Mean Platelet Vol. 9.8 fl (6.2-12.0); NRBC Flagged by Analyzer 0 % (0-5); Neutrophil % 65.9 % (47-70); POSITIVE COUNT YES; RBC Distribution Width CV 14.5 % (11.6-14.6); RBC Distribution Width SD 44.9 fl (35.1-43.9); Red Blood Count 4.04 M/mm3 (4.2-5.4); White Blood Count 6.4 K/mm3 (4.4-11.0)
[2024-06-07 10:49] LABS: International Normalized Ratio 0.9; Partial Thromboplast Time 21.3 Seconds (24.1-36.2); Prothrombin Time (Protime)PT. 12.2 SECONDS (11.7-14.9)
[2024-06-07] MEDS: 0.9% Normal Saline (1000mL) 1,000 ML 1000 ML IV (10:50)
[2024-06-07 11:04] LABS: Differential Indicated SCAN CRITERIA MET
[2024-06-07 11:05] LABS: Platelet Estimate ADEQUATE (ADEQ)
[2024-06-07 11:13] LABS: AST(SGOT) 25 U/L (15-37); Alanine Aminotransfer ALT/SGPT 18 U/L (13-56); Albumin, Serum 2.7 g/dL (3.2-5.0); Alkaline Phosphatase 106 U/L (45-117); Anion Gap 6 (5-15); BUN 14 mg/dL (7-18); BUN/Creat Ratio 14.4 RATIO (10-20); Bilirubin, Direct 0.08 mg/dL (0.00-0.30); Calcium,Total 8.8 mg/dL (8.5-10.1); Chloride 104 mmol/L (98-107); Creatinine, Serum 0.97 mg/dL (0.55-1.02); EST Glomerular Filtration Rate 58 mL/min (>60); Est Glom Filt Rate - Afr Amer 71 mL/min (>60); Globulin 3.9 g/dL (2.2-4.2); Glucose 88 mg/dL (74-106); Lipase 75 U/L (13-75); Potassium 4.1 mmol/L (3.5-5.1); Protein, Total 6.6 g/dL (6.4-8.2); Sodium Level 138 mmol/L (136-145); Troponin-I HS 9 pg/mL (3.0-54.0)
[2024-06-07 11:17] LABS: Bacteria 0 SEEN /hpf (None Seen); Mucous, Urine 0 SEEN /hpf (<or=2+); White Blood Cells 0 SEEN /hpf (0-5)
[2024-06-07 11:19] LABS: Color, Urine Yellow (Yellow); Glucose, Dipstick Normal (Normal); Ketone-Dipstick Negative (Negative); Leukocyte Esterase-Dipstick Negative /ul (Negative); Nitrite-Dipstick Negative (Negative); Occult Blood-Urine 10 /ul (Negative); Protein-Dipstick Negative (Negative); Urine Bilirubin Dipstick Negative (Negative); Urine Clarity Clear (Clear); Urine Urobilinogen Normal (Normal)
[2024-06-07 11:26] LABS: Red Blood Cells-Urine 0-5 SEEN /hpf (0-5); Squamous Epithelial Cells - UA 0-5 SEEN /hpf (5-10)
--- NOTE | 2024-06-07 11:34 | CT_ITS ---
HISTORY: pneumonia. TECHNIQUE: CT of the chest was performed after the intravenous administration of 100 mL Isovue-300. Coronal and sagittal reformatted images. Individualized dose optimization techniques were used for this CT. 753 images. COMPARISON: XR same day. FINDINGS: CENTRAL AIRWAYS: Patent. LUNGS: Mild biapical scarring. Mild groundglass and tree-in-bud nodular opacities bilaterally. Multiple solid noncalcified and cavitary nodules of varying sizes throughout the bilateral lungs with a 1.4 cm cavitary left upper lobe nodule. Left lower lobe consolidation, bronchiectasis, and 2.1 x 3.8 x 5.6 cm thick-walled cavitary mass. Mild right upper lobe and lingular consolidation with alveolar opacities. PLEURA: No pneumothorax or significant pleural effusion. HEART/PERICARDIUM: Heart within normal limits in size. No pericardial effusion. AORTA/VESSELS: 4.3 cm ascending aorta. Calcified and noncalcified plaque in the thoracic aorta. No large central filling defect identified in the pulmonary arteries. MEDIASTINUM/BLUE: 1.7 x 1.7 cm precarinal lymph node. OSSEOUS STRUCTURES: Osteopenia, scoliosis, and degenerative change. UPPER ABDOMEN: Small cyst in the left hepatic lobe. CT/Chest WITH Contrast IMPRESSION: Multiple cavitary and noncavitary nodules with regions of consolidation, groundglass opacity, and tree-in-bud nodular opacities throughout the bilateral lungs concerning for necrotizing pneumonia or atypical infection such as mycobacterial or fungal pneumonia in the acute setting. Granulomatous disease, metastases, or septic emboli could have a similar appearance with a 5.6 cm cavitary mass in the left lower lobe. Recommend close short-term interval follow-up to exclude neoplastic etiologies. Mildly enlarged mediastinal lymph node, which may be reactive. Mild 4.3 cm dilatation of the ascending aorta. Electronically Signed: Talia Ravi MD at 12:38 EST ,
--- NOTE | 2024-06-07 11:34 | CT_ITS ---
HISTORY: AMS. TECHNIQUE: Multiple axial images were obtained of the head without intravenous contrast. A radiation dose optimization technique was used for this scan. 245 images. COMPARISON: 12/10/2021. FINDINGS: BRAIN PARENCHYMA: Multiple foci and zones of low attenuation in the bilateral cerebral white matter compatible with chronic small vessel ischemic gliosis. No acute intra-axial hemorrhage identified. CSF SPACES: Chronic moderate volume loss. No midline shift or other significant mass effect. No acute extra-axial hemorrhage seen. OTHER: Intact calvarium. Trace fluid in the sphenoid sinus and mild ethmoid air cell mucosal thickening. Bilateral lens resections. CT/Brain/Head without Contrast IMPRESSION: No acute intracranial process identified. Chronic involutional and white matter changes. Electronically Signed: Talia Ravi MD at 12:21 EST ,
[2024-06-07 11:36] LABS: Lactic Acid 1.1 mmol/L (0.4-1.9)
--- NOTE | 2024-06-07 14:27 | PCM.HP.STD ---
HPI - General General Date of Admission: 06/07/24 Date of Service: 06/07/24 Chief Complaint: Generalized weakness HPI Narrative SAPNA GASCA, is a 84 F with past medical history of mild dementia, actinic keratitis, essential tremor, low back pain, osteoporosis, prior left hip fracture, anxiety who presents to the ED for concerns regarding progressive fatigue, for the last 1 week with associated chills. The history is provided by her son [bedside], patient is hard of hearing and did not participate in most of the interview Since the last 7 to 10 days having ongoing symptoms of increased fatigability, tired and overall decreased vitality. For this concern she was brought to the ED a week back and was started on antibiotics for concerns of urinary tract infection. However despite the antibiotic therapy she has not responded, since the last 2 days he is also having fever with chills, decreased appetite and difficulty taking care of herself. She has cough, intermittent for the past few months. No shortness of breath/worsening respiratory status/PND/orthopnea. Baseline status: Lives by herself, has family [children] close by, also has home health caregiver that supports with cooking. She does not cook, does not drive, does not operate the stove, but is able to microwave food. Walks using a cane, has mild dementia, able to take care of basic transactions via self. Previously seen in the ED on 05/30/2024 for concerns regarding confusion, there was 1+ bacteria in the urine and was discharged on cephalexin 500 mg p.o. Today in the ED, WBC 6.4, hemoglobin 10.4, platelet count not reported, INR 0.9, APTT 21.3, sodium 138, potassium 4.1, creatinine 0.9, lactic acid 1.1, albumin 2.7, urine protein is negative, no urine WBCs [facility] Medical History (Updated 06/07/24 @ 14:05 by Sisi Wilkinson) Chronic pain Dementia Dementia Essential tremor Restless leg syndrome Wears hearing aid in both ears Anxiety Former smoker Hypertension Cognitive decline Chronic low back pain Fracture of left humerus History of ovarian cyst Hyperlipemia History of wrist fracture GERD (gastroesophageal reflux disease) Osteoporosis Acid reflux Anemia Home Medications ?Medication ?Instructions ?Recorded ?Last Taken ?Type tramadol 50 mg tablet 50 mg PO Q8H PRN Pain 02/11/22 Unknown History acetaminophen 325 mg tablet 650 mg (2 x 325 mg) PO Q4H PRN PRN 04/23/23 Unknown Rx Fever, pain 1-03/24 #30 tabs menthol 0.44 %-zinc oxide 20.6 % 1 applic topical 4X/DAY #0 grams 04/23/23 Unknown Rx topical ointment (Calmoseptine) sennosides 8.6 mg-docusate sodium 2 tab PO BID PRN PRN Constipation 04/23/23 Unknown Rx 50 mg tablet (Stool #0 tabs Softener-Stimulant Laxative) calcium 250 mg (as 1 tab PO TID Supplement #90 tabs 01/20/24 Unknown Rx citrate)-vitamin D3 5 mcg (200 unit) tablet cholecalciferol (vitamin D3) 25 25 mcg PO DAILY #30 tabs 01/20/24 Unknown Rx mcg (1,000 unit) tablet (Vitamin D3) donepezil 10 mg tablet 10 mg PO QHS #30 tabs 01/20/24 Unknown Rx memantine 10 mg tablet 10 mg PO BID #60 tabs 01/20/24 Unknown Rx pramipexole 0.5 mg tablet 0.5 mg PO QHS #30 tabs 01/20/24 Unknown Rx propranolol 20 mg tablet 20 mg PO .COMPLEX #120 tabs 02/23/24 Unknown Rx Allergy/AdvReac Type Severity Reaction Status Date / Time No Known Allergies Allergy Verified 06/07/24 10:05 Family History Grandmother Colon cancer Father Colon cancer Heart disease Brother Colon cancer Heart disease Mother Heart disease High cholesterol Surgical History History of orthopedic surgery History of hip surgery History of carpal tunnel surgery of left wrist Social History household members: none Smoking Status: Former smoker how long ago did patient quit smokin second hand exposure: No alcohol intake: never substance use type: does not use what type of physical activity do you participate in: other details: PT frequency: 1-2 times per week herrera/adventism: Rastafari seatbelt use: always Vital Signs Vital Signs Vital Signs: 06/07/24 10:05 06/07/24 11:16 06/07/24 12:16 Temperature 97.7 F L 97.7 F L Temperature Source Oral Oral Pulse Rate 52 L 68 Pulse Rate [Lying] 58 L Pulse Rate [Sitting (for 1 minute prior to obtaining)] 59 L Pulse Rate [Standing (for 1 minute prior to obtaining)] 64 Respiratory Rate 16 18 Blood Pressure 150/74 H 140/52 H Blood Pressure [Lying] 141/79 H Blood Pressure [Sitting (for 1 minute prior to obtaining)] 151/69 H Blood Pressure [Standing (for 1 minute prior to obtaining)] 157/68 H Blood Pressure Mean 99 81 Blood Pressure Mean [Lying] 99 Blood Pressure Mean [Sitting (for 1 minute prior to obtaining)] 96 Blood Pressure Mean [Standing (for 1 minute prior to obtaining)] 97 Pulse Ox 96 94 Oxygen Delivery Method Room Air Room Air 06/07/24 12:17 06/07/24 13:30 06/07/24 14:03 Temperature 98.1 F 98.1 F 98.5 F Temperature Source Oral Oral Pulse Rate 62 52 L 68 Pulse Rate [Lying] Pulse Rate [Sitting (for 1 minute prior to obtaining)] Pulse Rate [Standing (for 1 minute prior to obtaining)] Respiratory Rate 14 18 14 Blood Pressure 149/59 H 142/88 H 139/72 H Blood Pressure [Lying] Blood Pressure [Sitting (for 1 minute prior to obtaining)] Blood Pressure [Standing (for 1 minute prior to obtaining)] Blood Pressure Mean 89 106 94 Blood Pressure Mean [Lying] Blood Pressure Mean [Sitting (for 1 minute prior to obtaining)] Blood Pressure Mean [Standing (for 1 minute prior to obtaining)] Pulse Ox 94 94 94 Oxygen Delivery Method Room Air Room Air Physical Exam Const alert, oriented x3 and no apparent distress Constitutional Narrative: Cachectic HEENT normocephalic Eyes PERRL Neck no lymphadenopathy Resp Resp Narrative: Bilateral crepitations present Cardio regular rate and regular rhythm GI normal to inspection, nondistended, normoactive bowel sounds Extremity normal to inspection Neuro oriented x3 Psych affect normal Results Medical Records Data Attestation: I reviewed the patient's medical records Lab / Micro Data Attestation: I reviewed the patient's lab results. 06/07/24 10:30 06/07/24 10:30 Labs: Laboratory Results - last 24 hr 06/07/24 10:30: WBC 6.4, RBC 4.04 L, Hgb 10.4 L, Hct 34.6 L, MCV 85.6, MCH 25.7 L, MCHC 30.1 L, RDW Std Deviation 44.9 H, RDW Coeff of [place] 14.5, Plt Count TNP, MPV 9.8, Immature Gran % (Auto) 0.600, Neut % (Auto) 65.9, Lymph % (Auto) 19.7, [place] % (Auto) 11.0 H, Eos % (Auto) 2.2, Baso % (Auto) 0.6, Absolute Neuts (auto) 4.2, Absolute Lymphs (auto) 1.26, Nucleated RBC % 0, Platelet Estimate ADEQUATE, PT 12.2, INR 0.9, APTT 21.3 L, Sodium 138, Potassium 4.1, Chloride 104, Carbon Dioxide 28.0, Anion Gap 6, BUN 14, Creatinine 0.97, Est GFR (MDRD) Af Amer 71, Est GFR (MDRD) Non-Af 58 L, BUN/Creatinine Ratio 14.4, Glucose 88, Calcium 8.8, Total Bilirubin 0.40, Direct Bilirubin 0.08, AST 25, ALT 18, Alkaline Phosphatase 106, Troponin I High Sens 9, Total Protein 6.6, Albumin 2.7 L, Globulin 3.9, Lipase 75 06/07/24 10:55: Lactic Acid 1.1 06/07/24 11:10: Urine Color Yellow, Urine Clarity Clear, Urine pH 7.0, Ur Specific [place] 1.010, Urine Protein Negative, Urine Glucose (UA) Normal, Urine Ketones Negative, Urine Occult Blood 10 H, Urine Nitrite Negative, Urine Bilirubin Negative, Urine Urobilinogen Normal, Ur Leukocyte Esterase Negative, Urine RBC 0-5 SEEN, Urine WBC 0 SEEN, Ur Squamous Epith Cells 0-5 SEEN, Urine Bacteria 0 SEEN, Urine Mucus 0 SEEN Micro: Microbiology 06/07/24 10:55 Mucosa - Nose SARS-CoV-2, Influenza & RSV (PCR) - Final SARS-CoV-2 (COVID 19 PCR) Imaging Radiology Impression Chest X-Ray 06/07/24 10:37 IMPRESSION: No change from 05/30/2024. Electronically Signed: Clarence Sandhu MD at 11:04 EST , Brain CT 06/07/24 11:34 IMPRESSION: No acute intracranial process identified. Chronic involutional and white matter changes. Electronically Signed: Talia Ravi MD at 12:21 EST , Chest CT 06/07/24 11:34 IMPRESSION: Multiple cavitary and noncavitary nodules with regions of consolidation, groundglass opacity, and tree-in-bud nodular opacities throughout the bilateral lungs concerning for necrotizing pneumonia or atypical infection such as mycobacterial or fungal pneumonia in the acute setting. Granulomatous disease, metastases, or septic emboli could have a similar appearance with a 5.6 cm cavitary mass in the left lower lobe. Recommend close short-term interval follow-up to exclude neoplastic etiologies. Mildly enlarged mediastinal lymph node, which may be reactive. Mild 4.3 cm dilatation of the ascending aorta. Electronically Signed: Talia Ravi MD at 12:38 EST , Assessment & Plan Assessment/Plan (1) COVID-19: PLAN: Plan 84-year-old female with a history of mild dementia, actinic keratitis, essential tremor, low back pain, osteoporosis, prior left hip fracture presents to the ED with concerns regarding decreased vitality, fatigue and fever since last 2 days. Her COVID is positive and would explain most of her symptoms. However there are concerning findings of multiple cavitary and noncardiac nodules with groundglass opacities in the lungs which could be concerning for mycobacterial or fungal pneumonia or metastases along with a 5.6 cavitary mass in the left lower lobe. She has chronic cough, no features of acute respiratory decompensation at this time #Suspected pneumonia #COVID -No respiratory distress, satting well on room air -Admit to general floor for further monitoring -Steroids not indicated at this time -Enoxaparin prophylaxis #Lung cavity -Given her age, chronicity of symptoms malignancy versus fungal/mycobacterial infection as a possible -Plan continue to monitor -Bronchoscopy and pulmonary medicine opinion regarding biopsy while admitted #Dementia -Mild dementia, has good baseline functional status -Case management review before discharge -PT OT consult -Continue home medications #Hip fracture -Continue tramadol for pain relief -No acute concerns #Essential tremor -Continue home medications #DVT prophylaxis -Enoxaparin prophylaxis #Fall precautions -All fall precautions must be followed given her age and dementia Charges/Coding Visit Charges Inpatient E&M: 35336 Init Hosp L2
[2024-06-07] MEDS: guaiFENesin 10 ML UDC (200MG/10ML) 20 ML PO (18:10)
[2024-06-07] MEDS: traMADol 50 MG Tablet PO (18:10)
[2024-06-07] MEDS: Propranolol 10 MG Tablet 20 MG PO (18:11)
[2024-06-07] MEDS: Memantine Hydrochloride 10 MG Tablet PO (23:21)
[2024-06-07] MEDS: Donepezil HCl 10 MG Tablet PO (23:21)
[2024-06-07] MEDS: Pramipexole Di-HCl 0.5 MG Tablet PO (23:21)
[2024-06-08 05:37] LABS: Absolute Lymphocyte Count 1.28 X10^3/uL (0.83-4.51); Absolute Neutrophil Count 3.9 X10^3/uL (2.0-7.7); Basophil# 0.02 X10^3/uL; Basophil% 0.3 % (0-1); Eosinophils% 3.2 % (0-5); Hematocrit 31.3 % (37-47); Hemoglobin 9.4 g/dL (12.0-15.0); Lymphocyte # 1.28 X10^3/ul (0.83-4.51); Lymphocyte % 20.7 % (19-41); Mean Corpuscular Hgb 25.5 pg (27.0-32.0); Mean Corpuscular Volume 84.8 fL (81-99); Mean Platelet Vol. 8.9 fl (6.2-12.0); Monocyte# 0.74 X10^3/uL; NRBC Flagged by Analyzer 0 % (0-5); Neutrophil # 3.89 X10^3/uL (2.7-7.7); Neutrophil % 62.8 % (47-70); Platelet Count 342 K/mm3 (150-450); RBC Distribution Width CV 14.4 % (11.6-14.6); RBC Distribution Width SD 44.8 fl (35.1-43.9); Red Blood Count 3.69 M/mm3 (4.2-5.4); White Blood Count 6.2 K/mm3 (4.4-11.0)
[2024-06-08 06:15] VITALS: BP 117/54; PULSE 55; RESP 16; TEMP 36.4; O2SAT 99
[2024-06-08 06:25] LABS: ALB/GLOB Ratio 0.7 RATIO (0.9-2.4); AST(SGOT) 15 U/L (15-37); Alanine Aminotransfer ALT/SGPT 17 U/L (13-56); Albumin, Serum 2.5 g/dL (3.2-5.0); Alkaline Phosphatase 96 U/L (45-117); Anion Gap 6 (5-15); BUN 13 mg/dL (7-18); BUN/Creat Ratio 17.3 RATIO (10-20); Bilirubin, Direct 0.09 mg/dL (0.00-0.30); Calcium,Total 8.6 mg/dL (8.5-10.1); Chloride 105 mmol/L (98-107); Creatinine, Serum 0.75 mg/dL (0.55-1.02); EST Glomerular Filtration Rate 78 mL/min (>60); Est Glom Filt Rate - Afr Amer 94 mL/min (>60); Estimated Creatinine Clearance 38.23 ml/min; Globulin 3.4 g/dL (2.2-4.2); Glucose 84 mg/dL (74-106); Magnesium 1.9 mg/dL (1.6-2.6); Phosphorus 3.3 mg/dL (2.5-4.9); Potassium 3.6 mmol/L (3.5-5.1); Protein, Total 5.9 g/dL (6.4-8.2); Sodium Level 138 mmol/L (136-145)
[2024-06-08 08:38] LABS: International Normalized Ratio 1.1; Prothrombin Time (Protime)PT. 13.7 SECONDS (11.7-14.9)
[2024-06-08] MEDS: Propranolol 40 MG Tablet PO (08:39)
[2024-06-08] MEDS: Memantine Hydrochloride 10 MG Tablet PO ×2 (08:39→22:08)
[2024-06-08] MEDS: Enoxaparin 40 MG/0.4 ML Syringe SC (08:39)
[2024-06-08] MEDS: traMADol 50 MG Tablet PO (08:44)
[2024-06-08 08:46] VITALS: BP 135/79; PULSE 55; RESP 18; TEMP 36.5; O2SAT 96
[2024-06-08] MEDS: Propranolol 10 MG Tablet 20 MG PO ×2 (11:37→17:05)
[2024-06-08 11:43] VITALS: BP 108/56; PULSE 51; RESP 18; TEMP 36.6; O2SAT 94
--- NOTE | 2024-06-08 12:36 | PCM.PN.HOSP ---
Reason for Visit Reason for Visit: Diagnoses COVID-19 (06/07/24) Subjective Subjective Patient was seen and examined today, she did not carry on a conversation with me today, her son was in the room and I talk with him extensively. Patient is currently on room air, patient's son states that the patient has been very weak at home. Patient's COVID-19 test was positive. Objective Data Objective Data Vital Signs: Vital Signs Temp Pulse Resp BP Pulse Ox O2 Del Method 98 F 51 L 18 108/56 L 94 Room Air 06/08/24 11:43 06/08/24 11:43 06/08/24 11:43 06/08/24 11:43 06/08/24 11:43 06/08/24 11:43 Oxygen Delivery Method Room Air Weight: 45.45 kg Body Mass Index (BMI) 16.7 Intake & Output: Intake and Output for Last 24 Hours 06/06/24 06/07/24 06/08/24 23:59 23:59 23:59 Intake Total 1120 / 1120 Balance 1120 / 1120 Medical Nutrition Assessment Dietitian: Malnutrition Criteria Met Start: 06/08/24 08:05 Freq: Status: Active Protocol: Document 06/08/24 08:05 SLA (Rec: 06/08/24 08:05 SLA [id number]) Nutrition Malnutrition Evidence of Malnutrition Exists Yes Malnutrition (severe): Acute Illness/Injury Evidenced By Suboptimal Energy Intake ( Severe),Weight Loss (Severe), Physical Changes (Moderate) Clinical Problem Acute Disease or Injury Related Malnutrition Etiology related to dementia and acute illness Signs/Symptoms as evidenced by 3.7% unintended wt loss and po intake meeting <75% of est nutritional needs x 1 wk Status Active Problem Recommendation Dietitian Recommendations/Changes Continue liberal regular diet as ordered - will give fort foods w/ meals as able Will provide 4 oz chocolate EPHP tid w/ meals for increased nutrition if consumed Rec consider appetite stimulant to help encourage increased po intake Lab / Micro Data 06/08/24 04:50 06/08/24 04:50 Labs: Laboratory Results - last 24 hr 06/08/24 04:50: WBC 6.2, RBC 3.69 L, Hgb 9.4 L, Hct 31.3 L, MCV 84.8, MCH 25.5 L, MCHC 30.0 L, RDW Std Deviation 44.8 H, RDW Coeff of [place] 14.4, Plt Count 342, MPV 8.9, Immature Gran % (Auto) 1.000 H, Neut % (Auto) 62.8, Lymph % (Auto) 20.7, [place] % (Auto) 12.0 H, Eos % (Auto) 3.2, Baso % (Auto) 0.3, Absolute Neuts (auto) 3.9, Absolute Lymphs (auto) 1.28, Nucleated RBC % 0, PT 13.7, INR 1.1, Sodium 138, Potassium 3.6, Chloride 105, Carbon Dioxide 27.0, Anion Gap 6, BUN 13, Creatinine 0.75, Estim Creat Clear Calc 38.23, Est GFR (MDRD) Af Amer 94, Est GFR (MDRD) Non-Af 78, BUN/Creatinine Ratio 17.3, Glucose 84, Calcium 8.6, Phosphorus 3.3, Magnesium 1.9, Total Bilirubin 0.30, Direct Bilirubin 0.09, AST 15, ALT 17, Alkaline Phosphatase 96, Total Protein 5.9 L, Albumin 2.5 L, Globulin 3.4, Albumin/Globulin Ratio 0.7 L, TSH 1.990 Micro: Microbiology 06/07/24 17:05 Nasal Secretion MRSA (PCR) - Final 06/07/24 10:55 Mucosa - Nose SARS-CoV-2, Influenza & RSV (PCR) - Final SARS-CoV-2 (COVID 19 PCR) Radiography Diagnostic Testing: Radiology Impression Chest CT 06/07/24 11:34 IMPRESSION: Multiple cavitary and noncavitary nodules with regions of consolidation, groundglass opacity, and tree-in-bud nodular opacities throughout the bilateral lungs concerning for necrotizing pneumonia or atypical infection such as mycobacterial or fungal pneumonia in the acute setting. Granulomatous disease, metastases, or septic emboli could have a similar appearance with a 5.6 cm cavitary mass in the left lower lobe. Recommend close short-term interval follow-up to exclude neoplastic etiologies. Mildly enlarged mediastinal lymph node, which may be reactive. Mild 4.3 cm dilatation of the ascending aorta. Electronically Signed: Talia Ravi MD at 12:38 EST , Physical Exam Const alert and no apparent distress Constitutional Narrative: Patient is nonverbal to this examiner, patient appears cachectic General Appearance: cooperative, well kempt and well developed Orientation / Consciousness: awake HEENT normocephalic, head/scalp atraumatic and moist oral mucous membranes Eyes PERRL, EOMs intact bilaterally and conjunctivae normal Neck supple, no JVD, thyroid normal and no carotid bruits General: trachea midline Resp normal respiratory effort, no retractions, no use of accessory muscles and clear to auscultation bilaterally Auscultation: Negative for rales, rhonchi or wheezes Cardio regular rate, regular rhythm, S1 normal heart sound, S2 normal heart sound, no murmurs, no rub and no gallops GI normal to inspection, nondistended, normoactive bowel sounds, soft to palpation, non-tender and non-distended Extremity no clubbing, cyanosis or edema Skin no rashes or lesions noted General Skin Exam: no breakdown Neuro CN's II-XII intact bilaterally, moves all extremities, no focal motor deficits and no sensory deficits noted Neuro Narrative: Patient is nonverbal Sensorium / Orientation: awake and alert Psych Psych Narrative: Patient is nonverbal Assessment & Plan Assessment/Plan (1) Generalized weakness: PLAN: Plan 1. Generalized weakness secondary to COVID-19 infection and multiple medical problems-patient will be seen by PT and OT, COVID-19 does not need to be treated-patient is not hypoxic. #2 COVID-19 infection-supportive care will be administered #3 dementia-complicates care, management, recovery, and prognosis, patient is on memantine and Aricept #[address] of the chest showing presence of multiple solid noncalcified and cavitary lung lesions, I will obtain a quantiferon gold test, patient will need to be seen by pulmonary medicine in consultation, they are not available today. Patient is of advanced age and has dementia, I am not sure an extensive workup is warranted at this time. Total clinical time spent by myself addressing the patient's medical issues, reviewing her data, and collaborating with patient's care team: 35 minutes Charges/Coding Visit Charges Inpatient E&M: 22033 Subs Hosp L2
[2024-06-08 14:40] VITALS: BP 136/61; PULSE 57; RESP 18; TEMP 36.7; O2SAT 93
[2024-06-08 22:05] VITALS: BP 117/60; PULSE 60; RESP 16; TEMP 37.1; O2SAT 94
[2024-06-08] MEDS: Pramipexole Di-HCl 0.5 MG Tablet PO (22:08)
[2024-06-08] MEDS: Donepezil HCl 10 MG Tablet PO (22:08)
[2024-06-09 03:13] VITALS: BP 152/79; PULSE 76; RESP 18; TEMP 36.8; O2SAT 94
--- NOTE | 2024-06-09 08:48 | CON.PCM.CC_ITS ---
Assessment & Plan Assessment/Plan (1) COVID-19: PLAN: Plan RECOMMENDATIONS: 1. Continue current supportive measures including physical therapy and potential placement, if needed. 2. Recommend starting Levaquin to complete 7 days of therapy. 3. Check MICHAEL with reflex, ANCA, rheumatoid factor, CCP antibodies and Aspergillus antibodies. 4. Outpatient pulmonary follow-up is recommended along with repeat CT chest in 6 to 8 weeks. IMPRESSIONS: 1. Abnormal CT chest in the setting of COVID-[address] chest obtained at the time of her presentation demonstrated bilateral pulmonary nodules, some of which were cavitary along with a dominant left lower lobe cavitary mass with associated tree-in-bud opacities. The exact etiology and chronicity of these findings is not entirely clear, as there is no prior CT imaging of the chest available for comparison. However, infectious and inflammatory etiologies would be of potential consideration. The patient appears significantly debilitated with baseline dementia. At this time, plan to obtain lab work that will include MICHAEL with reflex, CCP antibodies, rheumatoid factor, ANCA and Aspergillus antibodies. In addition, given that a secondary bacterial infection is a possibility, I would recommend that we treat the patient empirically with Levaquin for 7 days. Ultimately, the patient needs to follow-up in the pulmonary medicine clinic after discharge. I would recommend that we obtain a follow-up CT chest in 6 to 8 weeks to document how much of the findings are acute versus chronic in nature. The results of her autoimmune vasculitis workup can be reviewed at that time. The patient remains clinically stable on room air. This note was generated with [employer] dictation software. It may contain incorrect words, spelling, and punctuation that were not noted in checking the note before signing. HPI Consult Data Date of Consult: 06/09/24 HPI Narrative Reason for Consultation: Abnormal CT scan HPI Narrative: The patient is an 84-year-old female, with a history as outlined below, who presented to the emergency department on June 07 with generalized weakness. The patient had been evaluated in the emergency department on May 30 with concerns for a urinary tract infection. She was ultimately discharged home and completed a treatment course of Keflex. The patient has baseline dementia and is extremely hard of hearing. Therefore, no history could be obtained from the patient herself. Rather, the patient's son was present at the bedside and was able to provide additional details. The patient has had a nonproductive cough, but has never been diagnosed in the past with any pulmonary related conditions. He reported that she has never been diagnosed with any autoimmune conditions or vasculitides. She has a remote smoking history, having quit completely 50+ years ago. On presentation to the emergency department, the patient was documented to be afebrile and hemodynamically stable. She was maintaining appropriate oxygen saturations on room air. Laboratory evaluation revealed a normal white blood cell count. Chemistry profile was unremarkable. COVID PCR was positive. Head CT revealed chronic involutional changes of the brain. A CT chest was obtained which revealed multiple bilateral lung nodules, some of which possessed internal cavitation along with tree-in-bud opacities and a cavitary mass in the left lower lobe. The patient was ultimately admitted to the hospital due to her debilitated state to undergo PT evaluation with possible placement. [facility] Medical History (Updated 06/07/24 @ 14:05 by Sisi Wilkinson) Chronic pain Dementia Dementia Essential tremor Restless leg syndrome Wears hearing aid in both ears Anxiety Former smoker Hypertension Cognitive decline Chronic low back pain Fracture of left humerus History of ovarian cyst Hyperlipemia History of wrist fracture GERD (gastroesophageal reflux disease) Osteoporosis Acid reflux Anemia Home Medications ?Medication ?Instructions ?Recorded ?Last Taken ?Type tramadol 50 mg tablet 50 mg PO Q8H PRN Pain 02/11/22 Unknown History acetaminophen 325 mg tablet 650 mg (2 x 325 mg) PO Q4H PRN PRN 04/23/23 Unknown Rx Fever, pain 1-03/24 #30 tabs menthol 0.44 %-zinc oxide 20.6 % 1 applic topical 4X/DAY #0 grams 04/23/23 Unknown Rx topical ointment (Calmoseptine) sennosides 8.6 mg-docusate sodium 2 tab PO BID PRN PRN Constipation 04/23/23 Unknown Rx 50 mg tablet (Stool #0 tabs Softener-Stimulant Laxative) calcium 250 mg (as 1 tab PO TID Supplement #90 tabs 01/20/24 Unknown Rx citrate)-vitamin D3 5 mcg (200 unit) tablet cholecalciferol (vitamin D3) 25 25 mcg PO DAILY #30 tabs 01/20/24 Unknown Rx mcg (1,000 unit) tablet (Vitamin D3) donepezil 10 mg tablet 10 mg PO QHS #30 tabs 01/20/24 Unknown Rx memantine 10 mg tablet 10 mg PO BID #60 tabs 01/20/24 Unknown Rx pramipexole 0.5 mg tablet 0.5 mg PO QHS #30 tabs 01/20/24 Unknown Rx propranolol 20 mg tablet 20 mg PO .COMPLEX #120 tabs 02/23/24 Unknown Rx Allergy/AdvReac Type Severity Reaction Status Date / Time No Known Allergies Allergy Verified 06/07/24 10:05 Family History Grandmother Colon cancer Father Colon cancer Heart disease Brother Colon cancer Heart disease Mother Heart disease High cholesterol Surgical History History of orthopedic surgery History of hip surgery History of carpal tunnel surgery of left wrist Social History household members: none Smoking Status: Former smoker how long ago did patient quit smokin second hand exposure: No alcohol intake: never substance use type: does not use what type of physical activity do you participate in: other details: PT frequency: 1-2 times per week herrera/nondenominational: Yarsanism seatbelt use: always ROS ROS Narrative Largely unable to be obtained due to baseline dementia. Physical Exam Const alert and no apparent distress Constitutional Narrative: Walking with the assistance of a walker. Excess kyphosis noted. The patient is extremely hard of hearing. HEENT normocephalic and head/scalp atraumatic Eyes EOMs intact bilaterally and conjunctivae normal Neck supple General: trachea midline Chest inspection of chest normal Resp normal respiratory effort Resp Narrative: Occasional nonproductive cough noted. Auscultation: Negative for rales, rhonchi or wheezes Cardio regular rate and regular rhythm GI normal to inspection, nondistended, normoactive bowel sounds Extremity no clubbing, cyanosis or edema Skin no rashes or lesions noted Neuro CN's II-XII intact bilaterally and no focal motor deficits Psych Mood & Affect: flat affect Medical Records Data Medical Nutrition Assessment Dietitian: Malnutrition Criteria Met Start: 06/08/24 08:05 Freq: Status: Active Protocol: Document 06/08/24 08:05 NITZA (Rec: 06/08/24 08:05 NITZA [email or web address]) Nutrition Malnutrition Evidence of Malnutrition Exists Yes Malnutrition (severe): Acute Illness/Injury Evidenced By Suboptimal Energy Intake ( Severe),Weight Loss (Severe), Physical Changes (Moderate) Clinical Problem Acute Disease or Injury Related Malnutrition Etiology related to dementia and acute illness Signs/Symptoms as evidenced by 3.7% unintended wt loss and po intake meeting <75% of est nutritional needs x 1 wk Status Active Problem Recommendation Dietitian Recommendations/Changes Continue liberal regular diet as ordered - will give fort foods w/ meals as able Will provide 4 oz chocolate EPHP tid w/ meals for increased nutrition if consumed Rec consider appetite stimulant to help encourage increased po intake Lab / Micro Data 06/08/24 04:50 06/08/24 04:50 Charges/Coding Visit Charges Inpatient E&M: 09471 Init Hosp L3
[2024-06-09] MEDS: Enoxaparin 40 MG/0.4 ML Syringe SC (09:22)
[2024-06-09] MEDS: Memantine Hydrochloride 10 MG Tablet PO ×2 (09:22→21:49)
[2024-06-09] MEDS: traMADol 50 MG Tablet PO ×2 (09:22→21:48)
[2024-06-09] MEDS: Propranolol 40 MG Tablet PO (09:22)
[2024-06-09 09:26] VITALS: BP 123/60; PULSE 73; RESP 16; TEMP 36.6; O2SAT 92
--- NOTE | 2024-06-09 09:54 | CASEMGMT ---
CAMDEN ADKINS Assessment: Face to Face with pt for initial transition planning/care coordination assessment. CAMDEN ADKINS introduced self and role at [facility], pt with dementia and concussion, son in room and agreeable to discuss DC planning. Pt lying in bed in no distress. Care providers, pharmacy, and demographics verified/updated. Strata: 2 Admitting Dx: COVID PCP: Jayjay Specialists: Joyce, neurologist Preferred Pharmacy: [facility] Insurance: [employer] [facility] Prescription Benefit: yes LNOK: SonKwesi. Living Arrangements: Pt lives alone with family near by. A caregiver comes 2X week for 4 hours to help with cleaning and meal prep. ADLs: Pt needs some assistance with IADLs. Transportation: Pt family provides transportation. DME: cane, walker, shower bench, grab bars. HHC/SNF: Previously at [facility] [place] and [facility] [place]. Pt son states would ultimately like to see Pt go home, but feels at this time short term placement would be best. Pt son denies wanting list, would like TCU. Pt states no further concerns/needs. CM to follow. Advised pt to ask CM if any further question/concerns/needs arise, voices understanding. Pt Goal: SNF Plan: SNF, TCU first choice. Sunil HANNAH CM
[2024-06-09 11:11] VITALS: BP 120/60; PULSE 64; RESP 18; TEMP 37.1; O2SAT 93
[2024-06-09] MEDS: Propranolol 10 MG Tablet 20 MG PO ×2 (12:13→16:21)
--- NOTE | 2024-06-09 12:46 | CASEMGMT ---
Discharge Planning A list of?SNF providers including quality and resource use data and consistent with the patient's preferred geographic region, medical needs, and insurance network was created in [employer] Guide.? This list was provided to the SW. Thalia Robles Discharge Planning Asst.
[2024-06-09 15:32] VITALS: BP 141/77; PULSE 51; RESP 16; TEMP 37; O2SAT 95
--- NOTE | 2024-06-09 15:45 | CASEMGMT ---
Social Work Spoke with RN LUCILLE Hodges today who reports son's preference for placement would be [facility], where patient has been in the past, along with [facility] [place] and [facility] [place]. Referral to Brenna at [facility]. Received notice that patient in unable to be accepted. Called patient's son to update. Son reports thought that uncertain whether patient will be able to return home as patient has every other time patient has needed hospitalization and rehab, so is hoping for any move for the patient to be the final one, and this is why had hoped for TCU initially as sees this as an extension of the hospital with less of a change for patient, giving the family more time to consider detention plans. Son interested in lists for SNF and assisted living. Educated that from the SNF list, this would be in the insurance network and could try for skilled coverage, versus the assisted living would not be covered by insurance. Educated that some of the SNFs have assisted livings attached, so son can cross reference. Son will pick and shovel man the lists of options after work today. This web content writer asked the son to be prepared with a couple of choices by tomorrow, so SW can start to explore availability. Son agreed. Left list of SNF options, printed from [employer] and in patient's insurance network, geographical region with quality/start data ratings, as well as Assisted Living list. Spoke with Min Olivera RN, of the son's intent to pick the lists up this evening. Plan: SW actively following and will follow up with son on 06.10.24 for additional choices. -Shakira Kinney
--- NOTE | 2024-06-09 15:45 | PCM.PN.HOSP ---
Reason for Visit Reason for Visit: Diagnoses Weakness (06/07/24) COVID-19 (06/07/24) Subjective Subjective Patient was seen and examined today, I had pulmonary medicine see the patient concerning her abnormal chest CT, it was recommended the patient be placed on antibiotics for possible infective process in the lungs. Additional testing was ordered by pulmonary medicine. Patient's son has requested that the patient go to an extended care facility for further care at this time. Objective Data Objective Data Vital Signs: Vital Signs Temp Pulse Resp BP Pulse Ox O2 Del Method 98.6 F 51 L 16 141/77 H 95 Room Air 06/09/24 15:32 06/09/24 15:32 06/09/24 15:32 06/09/24 15:32 06/09/24 15:32 06/09/24 15:32 Oxygen Delivery Method Room Air Weight: 45.45 kg Body Mass Index (BMI) 16.7 Intake & Output: Intake and Output for Last 24 Hours 06/07/24 06/08/24 06/09/24 23:59 23:59 23:59 Intake Total 1120 / 1120 750 / 750 50 / 50 Balance 1120 / 1120 750 / 750 50 / 50 Medical Nutrition Assessment Dietitian: Malnutrition Criteria Met Start: 06/08/24 08:05 Freq: Status: Active Protocol: Document 06/08/24 08:05 NITZA (Rec: 06/08/24 08:05 SLA [email or web address]) Nutrition Malnutrition Evidence of Malnutrition Exists Yes Malnutrition (severe): Acute Illness/Injury Evidenced By Suboptimal Energy Intake ( Severe),Weight Loss (Severe), Physical Changes (Moderate) Clinical Problem Acute Disease or Injury Related Malnutrition Etiology related to dementia and acute illness Signs/Symptoms as evidenced by 3.7% unintended wt loss and po intake meeting <75% of est nutritional needs x 1 wk Status Active Problem Recommendation Dietitian Recommendations/Changes Continue liberal regular diet as ordered - will give fort foods w/ meals as able Will provide 4 oz chocolate EPHP tid w/ meals for increased nutrition if consumed Rec consider appetite stimulant to help encourage increased po intake Lab / Micro Data 06/08/24 04:50 06/08/24 04:50 Micro: Microbiology 06/07/24 17:05 Nasal Secretion MRSA (PCR) - Final 06/07/24 10:55 Mucosa - Nose SARS-CoV-2, Influenza & RSV (PCR) - Final SARS-CoV-2 (COVID 19 PCR) Physical Exam Narrative alert and no apparent distress Constitutional Narrative: Patient is nonverbal to this examiner, patient appears cachectic General Appearance: cooperative, well kempt and well developed Orientation / Consciousness: awake HEENT normocephalic, head/scalp atraumatic and moist oral mucous membranes Eyes PERRL, EOMs intact bilaterally and conjunctivae normal Neck supple, no JVD, thyroid normal and no carotid bruits General: trachea midline Resp normal respiratory effort, no retractions, no use of accessory muscles and clear to auscultation bilaterally Auscultation: Negative for rales, rhonchi or wheezes Cardio regular rate, regular rhythm, S1 normal heart sound, S2 normal heart sound, no murmurs, no rub and no gallops GI normal to inspection, nondistended, normoactive bowel sounds, soft to palpation, non-tender and non-distended Extremity no clubbing, cyanosis or edema Skin no rashes or lesions noted General Skin Exam: no breakdown Neuro CN's II-XII intact bilaterally, moves all extremities, no focal motor deficits and no sensory deficits noted Neuro Narrative: Patient is nonverbal Sensorium / Orientation: awake and alert Psych Psych Narrative: Patient is nonverbal Assessment & Plan Assessment/Plan (1) COVID-19: (2) Generalized weakness: PLAN: Plan 1. Generalized weakness secondary to COVID-19 infection and multiple medical problems-patient will be seen by PT and OT, COVID-19 does not need to be treated-patient is not hypoxic. #2 COVID-19 infection-supportive care will be administered #3 dementia-complicates care, management, recovery, and prognosis, patient is on memantine and Aricept #[address] of the chest showing presence of multiple solid noncalcified and cavitary lung lesions-patient was placed on Levaquin 500 mg daily, she will need follow-up with pulmonary medicine-I discussed this with the patient's son today. #5 acute severe protein and caloric malnutrition-related to dementia and acute illness as evidenced by 3.7% unintended weight loss and p.o. intake meeting less than 75% of estimated nutritional needs x 1 week-continue liberal regular diet as ordered, it was recommended that I consider an appetite stimulant, patient will be placed on Remeron nightly Total clinical time spent by myself addressing the patient's medical issues, reviewing her data, and collaborating with patient's care team: 35 minutes Charges/Coding Visit Charges Inpatient E&M: 71016 Subs Hosp L2
[2024-06-09] MEDS: levoFLOXacin 500 MG Tablet PO (16:21)
[2024-06-09] MEDS: Mirtazapine 15 MG Tablet PO (21:48)
[2024-06-09] MEDS: Pramipexole Di-HCl 0.5 MG Tablet PO (21:48)
[2024-06-09] MEDS: Donepezil HCl 10 MG Tablet PO (21:54)
[2024-06-10] VITALS (8 sets, daily range): BP systolic 88–133; BP diastolic 54–78; PULSE 52–74; RESP 14–16; TEMP 36.5–36.9; O2SAT 94–95
[2024-06-10] MEDS: Temazepam 15 MG Capsule PO (01:29)
[2024-06-10 04:06] LABS: QNTFERON TB Mitogen Value > 10.00 IU/mL (.); QNTFERON TB Nil Value 0.08 IU/mL (.); QNTFERON TB1+ Ag Value 0.08 IU/mL (.); QNTFERON TB2+ Ag Value 0.08 IU/mL (.); QNTIFERON TB Positive Criteria Negative (Negative)
[2024-06-10 04:31] LABS: Rheumatoid Factor < 10.0 IU/mL (<15)
[2024-06-10] MEDS: levoFLOXacin 250 MG Tablet PO (05:01)
[2024-06-10] MEDS: Memantine Hydrochloride 10 MG Tablet PO (09:26)
[2024-06-10] MEDS: Enoxaparin 40 MG/0.4 ML Syringe SC (09:27)
[2024-06-10] MEDS: Propranolol 40 MG Tablet PO (09:27)
[2024-06-10] MEDS: traMADol 50 MG Tablet PO (09:38)
--- NOTE | 2024-06-10 10:45 | CASEMGMT ---
Addendum entered by Mackenzie Wilburn 06/10/24 13:45: [facility] accepted & precert started. Pt updated. Plan: [facility]; pend precert ZENOBIA Zarate Original Note: Social Work- SW spoke with pt son, Kwesi, who reports that [facility] is [facility] and referral can be completed. SW notified [facility] of referral request. SW remains available to follow. Plan: [facility]; pending acceptance ZENOBIA Zarate
--- NOTE | 2024-06-10 10:57 | CASEMGMT ---
Addendum entered by Thalia Robles 06/10/24 13:47: [facility] has accepted and will submit for precert. SW updated. Thalia Robles DC Planning Asst. Original Note: Discharge Planning Referral sent [facility]. Thalia Robles DC Planning Asst.
--- NOTE | 2024-06-10 11:53 | PN.HOSP_ITS ---
Reason for Visit Reason for Visit: Diagnoses Weakness (06/07/24) COVID-19 (06/07/24) Subjective Subjective Patient was seen and examined today, she did not carry on a conversation with this examiner but said only a few words, her son was in the room and I talked with him. TCU refused to take the patient, we are now awaiting approval for the patient to go to [address]. Patient's son states the patient has been sleepy this morning, I explained that I placed her on Remeron starting last night. Objective Data Objective Data Vital Signs: Vital Signs Temp Pulse Resp BP Pulse Ox O2 Del Method 98.4 F 61 16 107/62 94 Room Air 06/10/24 09:29 06/10/24 09:29 06/10/24 09:29 06/10/24 09:29 06/10/24 09:29 06/10/24 09:29 Oxygen Delivery Method Room Air Weight: 45.45 kg Body Mass Index (BMI) 16.7 Intake & Output: Intake and Output for Last 24 Hours 06/08/24 06/09/24 06/10/24 23:59 23:59 23:59 Intake Total 750 / 750 150 / 150 Balance 750 / 750 150 / 150 Medical Nutrition Assessment Dietitian: Malnutrition Criteria Met Start: 06/08/24 08:05 Freq: Status: Active Protocol: Document 06/08/24 08:05 NITZA (Rec: 06/08/24 08:05 SLA [email or web address]) Nutrition Malnutrition Evidence of Malnutrition Exists Yes Malnutrition (severe): Acute Illness/Injury Evidenced By Suboptimal Energy Intake ( Severe),Weight Loss (Severe), Physical Changes (Moderate) Clinical Problem Acute Disease or Injury Related Malnutrition Etiology related to dementia and acute illness Signs/Symptoms as evidenced by 3.7% unintended wt loss and po intake meeting <75% of est nutritional needs x 1 wk Status Active Problem Recommendation Dietitian Recommendations/Changes Continue liberal regular diet as ordered - will give fort foods w/ meals as able Will provide 4 oz chocolate EPHP tid w/ meals for increased nutrition if consumed Rec consider appetite stimulant to help encourage increased po intake Lab / Micro Data 06/08/24 04:50 06/08/24 04:50 Labs: Laboratory Results - last 24 hr 06/08/24 12:55: TB Test (QFT) Nil 0.08, TB Test (QFT) Mitogen > 10.00, TB Test (QFT) Ag 1 0.08, TB Test (QFT) Ag 2 0.08, TB Test (QFT) Comment, TB Positive Criteria Negative 06/10/24 03:50: Rheumatoid Factor < 10.0, FEDE-1 Antibody TNP, SS-A/Ro IgG Antibody TNP, SS-B/La IgG Antibody TNP, Sm (Myers) Antibody TNP, FURNACE MECH[employer]IC HELPER Antibody TNP, Scl-70 Scleroderma Ab TNP, Double Strand DNA Ab TNP, Antichromatin Antibodies TNP, Centromere B Antibody TNP Micro: Microbiology 06/07/24 17:05 Nasal Secretion MRSA (PCR) - Final 06/07/24 10:55 Mucosa - Nose SARS-CoV-2, Influenza & RSV (PCR) - Final SARS-CoV-2 (COVID 19 PCR) Physical Exam Narrative alert and no apparent distress Constitutional Narrative: Patient is basically nonverbal to this examiner, patient appears cachectic General Appearance: cooperative, well kempt and well developed Orientation / Consciousness: awake HEENT normocephalic, head/scalp atraumatic and moist oral mucous membranes Eyes PERRL, EOMs intact bilaterally and conjunctivae normal Neck supple, no JVD, thyroid normal and no carotid bruits General: trachea midline Resp normal respiratory effort, no retractions, no use of accessory muscles and clear to auscultation bilaterally Auscultation: Negative for rales, rhonchi or wheezes Cardio regular rate, regular rhythm, S1 normal heart sound, S2 normal heart sound, no murmurs, no rub and no gallops GI normal to inspection, nondistended, normoactive bowel sounds, soft to palpation, non-tender and non-distended Extremity no clubbing, cyanosis or edema Skin no rashes or lesions noted General Skin Exam: no breakdown Neuro CN's II-XII intact bilaterally, moves all extremities, no focal motor deficits and no sensory deficits noted Neuro Narrative: Patient is basically nonverbal Sensorium / Orientation: awake and alert Psych Psych Narrative: Patient is basically nonverbal Assessment & Plan Assessment/Plan (1) COVID-19: (2) Generalized weakness: PLAN: Plan 1. Generalized weakness secondary to COVID-19 infection and multiple medical problems-patient will be seen by PT and OT, COVID-19 does not need to be treated-patient is not hypoxic. Continue PT and OT, patient will need placement in a residential facility for inpatient rehab services-we are currently awaiting approval from her insurance carrier #2 COVID-19 infection-supportive care will be administered #3 dementia-complicates care, management, recovery, and prognosis, patient is on memantine and Aricept #[address] of the chest showing presence of multiple solid noncalcified and cavitary lung lesions-patient remains on Levaquin 500 mg daily, she will need follow-up with pulmonary medicine-I discussed this with the patient's son . #5 acute severe protein and caloric malnutrition-related to dementia and acute illness as evidenced by 3.7% unintended weight loss and p.o. intake meeting less than 75% of estimated nutritional needs x 1 week-continue liberal regular diet as ordered, it was recommended that I consider an appetite stimulant, patient will remain on Remeron nightly for this Total clinical time spent by myself addressing the patient's medical issues, reviewing her data, and collaborating with patient's care team: 35 minutes Charges/Coding Visit Charges Inpatient E&M: 29481 Subs Hosp L2
[2024-06-10] MEDS: Propranolol 10 MG Tablet 20 MG PO ×2 (12:22→17:19)
[2024-06-11] VITALS (7 sets, daily range): BP systolic 93–155; BP diastolic 50–90; PULSE 55–82; RESP 15–19; TEMP 36.6–37; O2SAT 93–94
[2024-06-11] MEDS: levoFLOXacin 250 MG Tablet PO (05:09)
--- NOTE | 2024-06-11 05:42 | EKG12_ITS ---
Test Reason : CHEST PAIN Blood Pressure : */* mmHG Vent. Rate : 61 BPM Atrial Rate : 61 BPM P-R Int : 142 ms QRS Dur : 126 ms QT Int : 476 ms P-R-T Axes : 71 -38 90 degrees QTcB Int : 479 ms Normal sinus rhythm Left axis deviation Left bundle branch block Abnormal ECG When compared with ECG of 07-Jun-2024 10:33, No significant change was found Confirmed by DEREK SÁNCHEZ, FATEMEH ([id number]), editor magazine [employer] ([id number]) on 06/13/2024 11:10:02 AM Referred By: EDUARDA Confirmed By: FATEMEH REED MD
[2024-06-11] MEDS: traMADol 50 MG Tablet PO (05:51)
[2024-06-11 06:59] LABS: Troponin-I HS 23 pg/mL (3.0-54.0)
[2024-06-11 09:13] LABS: Troponin-I HS 21 pg/mL (3.0-54.0)
[2024-06-11] MEDS: Memantine Hydrochloride 10 MG Tablet PO ×2 (10:01→19:59)
[2024-06-11] MEDS: Enoxaparin 40 MG/0.4 ML Syringe SC (10:01)
[2024-06-11] MEDS: Calcium Carbonate 500 MG Tablet PO (10:01)
[2024-06-11] MEDS: guaiFENesin 10 ML UDC (200MG/10ML) 20 ML PO (10:09)
[2024-06-11] MEDS: Acetaminophen 325 MG Tablet 650 MG PO ×2 (10:09→17:28)
[2024-06-11] MEDS: Propranolol 40 MG Tablet PO (10:10)
[2024-06-11] MEDS: Propranolol 10 MG Tablet 20 MG PO ×2 (12:20→17:28)
[2024-06-11] MEDS: Magnesium Hydroxide 30 ML UDC PO (12:20)
[2024-06-11] MEDS: Albuterol 2.5 MG/3 ML VIAL.NEB. INHALATION (12:43)
[2024-06-11 13:05] LABS: Troponin-I HS 25 pg/mL (3.0-54.0)
--- NOTE | 2024-06-11 13:50 | CASEMGMT ---
Social Work- SW spoke with son Kwesi to provide updates. Kwesi reports that he is going to tour [place]. TEGAN will remain available to follow for discharge planning. Plan: [facility]; pending precert ZENOBIA Zarate
--- NOTE | 2024-06-11 14:27 | PCM.PN.HOSP ---
Reason for Visit Reason for Visit: Diagnoses Weakness (06/07/24) COVID-19 (06/07/24) Subjective Subjective Patient was seen and examined today, she is having some rhonchi and wheezes on expiration and is coughing, she complains of chest discomfort which I think is due to her coughing. Her pulse ox is above 90% on room air. Talk to the son who was in the room today at the time my examination. I have elected to place her on aerosol treatments and I have given her a dose of milk of magnesia because I do not believe she has had a bowel movement since she has been admitted. Objective Data Objective Data Vital Signs: Vital Signs Temp Pulse Resp BP Pulse Ox O2 Del Method O2 Flow Rate 98.2 F 55 L 18 121/68 H 94 Room Air 2 06/11/24 13:38 06/11/24 13:38 06/11/24 13:38 06/11/24 13:38 06/11/24 13:38 06/11/24 13:38 06/11/24 05:48 Oxygen Flow Rate (L/min) 2 Oxygen Delivery Method Room Air Weight: 45.45 kg Body Mass Index (BMI) 16.7 Intake & Output: Intake and Output for Last 24 Hours 06/09/24 06/10/24 06/11/24 23:59 23:59 23:59 Intake Total 150 / 150 100 / 100 Balance 150 / 150 100 / 100 Medical Nutrition Assessment Dietitian: Malnutrition Criteria Met Start: 06/08/24 08:05 Freq: Status: Active Protocol: Document 06/08/24 08:05 NITZA (Rec: 06/08/24 08:05 SLA [email or web address]) Nutrition Malnutrition Evidence of Malnutrition Exists Yes Malnutrition (severe): Acute Illness/Injury Evidenced By Suboptimal Energy Intake ( Severe),Weight Loss (Severe), Physical Changes (Moderate) Clinical Problem Acute Disease or Injury Related Malnutrition Etiology related to dementia and acute illness Signs/Symptoms as evidenced by 3.7% unintended wt loss and po intake meeting <75% of est nutritional needs x 1 wk Status Active Problem Recommendation Dietitian Recommendations/Changes Continue liberal regular diet as ordered - will give fort foods w/ meals as able Will provide 4 oz chocolate EPHP tid w/ meals for increased nutrition if consumed Rec consider appetite stimulant to help encourage increased po intake Lab / Micro Data 06/08/24 04:50 06/08/24 04:50 Labs: Laboratory Results - last 24 hr 06/11/24 06:20: Troponin I High Sens 23 06/11/24 08:10: Troponin I High Sens 21 06/11/24 12:18: Troponin I High Sens 25 Micro: Microbiology 06/07/24 17:05 Nasal Secretion MRSA (PCR) - Final 06/07/24 10:55 Mucosa - Nose SARS-CoV-2, Influenza & RSV (PCR) - Final SARS-CoV-2 (COVID 19 PCR) Physical Exam Narrative alert and no apparent distress Constitutional Narrative: Patient does answer some questions appropriately, she appears cachectic General Appearance: cooperative, well kempt and well developed Orientation / Consciousness: awake HEENT normocephalic, head/scalp atraumatic and moist oral mucous membranes Eyes PERRL, EOMs intact bilaterally and conjunctivae normal Neck supple, no JVD, thyroid normal and no carotid bruits General: trachea midline Resp normal respiratory effort, no retractions, no use of accessory muscles and clear to auscultation bilaterally Auscultation: Negative for rales, rhonchi or wheezes Cardio regular rate, regular rhythm, S1 normal heart sound, S2 normal heart sound, no murmurs, no rub and no gallops GI normal to inspection, nondistended, normoactive bowel sounds, soft to palpation, non-tender and non-distended Extremity no clubbing, cyanosis or edema Skin no rashes or lesions noted General Skin Exam: no breakdown Neuro CN's II-XII intact bilaterally, moves all extremities, no focal motor deficits and no sensory deficits noted Neuro Narrative: Patient is minimally verbal Sensorium / Orientation: awake and alert Psych Psych Narrative: Patient is minimally verbal and does answer some questions appropriately Assessment & Plan Assessment/Plan (1) COVID-19: (2) Generalized weakness: PLAN: Plan 1. Generalized weakness secondary to COVID-19 infection and multiple medical problems-patient will be seen by PT and OT, COVID-19 does not need to be treated-patient is not hypoxic. Continue PT and OT, patient will [facility] for [facility]hab services-we are currently awaiting approval from her insurance carrier #2 COVID-19 infection-supportive care will be administered, patient is somewhat wheezy and rhonchorous today, I have instituted aerosol treatments for the patient #3 dementia-complicates care, management, recovery, and prognosis, patient is on memantine and Aricept #[address] of the chest showing presence of multiple solid noncalcified and cavitary lung lesions-patient remains on Levaquin 500 mg daily, she will need follow-up with pulmonary medicine-I discussed this with the patient's son . #5 acute severe protein and caloric malnutrition-related to dementia and acute illness as evidenced by 3.7% unintended weight loss and p.o. intake meeting less than 75% of estimated nutritional needs x 1 week-continue liberal regular diet as ordered, it was recommended that I consider an appetite stimulant, patient will remain on Remeron nightly for this Total clinical time spent by myself addressing the patient's medical issues, reviewing her data, and collaborating with patient's care team: 35 minutes Charges/Coding Visit Charges Inpatient E&M: 22515 Subs Hosp L2
[2024-06-11] MEDS: Donepezil HCl 10 MG Tablet PO (19:59)
[2024-06-11] MEDS: Mirtazapine 15 MG Tablet PO (19:59)
[2024-06-11] MEDS: Pramipexole Di-HCl 0.5 MG Tablet PO (19:59)
[2024-06-11] MEDS: hydrOXYzine 50 MG/ML Vial 100 MG IM (20:53)
[2024-06-12] VITALS (7 sets, daily range): BP systolic 95–128; BP diastolic 45–73; PULSE 55–84; RESP 15–17; TEMP 36.6–37.1; O2SAT 92–95
[2024-06-12] MEDS: levoFLOXacin 250 MG Tablet PO (06:55)
[2024-06-12] MEDS: Enoxaparin 40 MG/0.4 ML Syringe SC (09:31)
[2024-06-12] MEDS: Memantine Hydrochloride 10 MG Tablet PO ×2 (09:31→20:18)
[2024-06-12] MEDS: Propranolol 40 MG Tablet PO (09:33)
[2024-06-12] MEDS: Acetaminophen 325 MG Tablet 650 MG PO ×2 (09:44→17:08)
--- NOTE | 2024-06-12 15:52 | PCM.PN.HOSP ---
Reason for Visit Reason for Visit: Diagnoses Weakness (06/07/24) COVID-19 (06/07/24) Subjective Subjective Patient was seen and examined today, she is alert and does not appear to be in any distress. Patient is no longer having any wheezing. She remains on room air at this time. Objective Data Objective Data Vital Signs: Vital Signs Temp Pulse Resp BP Pulse Ox O2 Del Method O2 Flow Rate 98.1 F 55 L 16 95/49 L 95 Room Air 2 06/12/24 12:13 06/12/24 12:13 06/12/24 12:13 06/12/24 12:13 06/12/24 12:13 06/12/24 12:14 06/11/24 05:48 Oxygen Flow Rate (L/min) 2 Oxygen Delivery Method Room Air Weight: 45.45 kg Body Mass Index (BMI) 16.7 Intake & Output: Intake and Output for Last 24 Hours 06/10/24 06/11/24 06/12/24 23:59 23:59 23:59 Intake Total 100 / 100 200 / 200 Balance 100 / 100 200 / 200 Medical Nutrition Assessment Dietitian: Malnutrition Criteria Met Start: 06/08/24 08:05 Freq: Status: Active Protocol: Document 06/08/24 08:05 SLA (Rec: 06/08/24 08:05 SLA [email or web address]) Nutrition Malnutrition Evidence of Malnutrition Exists Yes Malnutrition (severe): Acute Illness/Injury Evidenced By Suboptimal Energy Intake ( Severe),Weight Loss (Severe), Physical Changes (Moderate) Clinical Problem Acute Disease or Injury Related Malnutrition Etiology related to dementia and acute illness Signs/Symptoms as evidenced by 3.7% unintended wt loss and po intake meeting <75% of est nutritional needs x 1 wk Status Active Problem Recommendation Dietitian Recommendations/Changes Continue liberal regular diet as ordered - will give fort foods w/ meals as able Will provide 4 oz chocolate EPHP tid w/ meals for increased nutrition if consumed Rec consider appetite stimulant to help encourage increased po intake Lab / Micro Data 06/08/24 04:50 06/08/24 04:50 Micro: Microbiology 06/07/24 17:05 Nasal Secretion MRSA (PCR) - Final 06/07/24 10:55 Mucosa - Nose SARS-CoV-2, Influenza & RSV (PCR) - Final SARS-CoV-2 (COVID 19 PCR) Physical Exam Narrative alert and no apparent distress Constitutional Narrative: Patient does answer some questions appropriately, she appears cachectic General Appearance: cooperative, well kempt and well developed Orientation / Consciousness: awake HEENT normocephalic, head/scalp atraumatic and moist oral mucous membranes Eyes PERRL, EOMs intact bilaterally and conjunctivae normal Neck supple, no JVD, thyroid normal and no carotid bruits General: trachea midline Resp normal respiratory effort, no retractions, no use of accessory muscles and clear to auscultation bilaterally Auscultation: Negative for rales, rhonchi or wheezes Cardio regular rate, regular rhythm, S1 normal heart sound, S2 normal heart sound, no murmurs, no rub and no gallops GI normal to inspection, nondistended, normoactive bowel sounds, soft to palpation, non-tender and non-distended Extremity no clubbing, cyanosis or edema Skin no rashes or lesions noted General Skin Exam: no breakdown Neuro CN's II-XII intact bilaterally, moves all extremities, no focal motor deficits and no sensory deficits noted Neuro Narrative: Patient is minimally verbal Sensorium / Orientation: awake and alert Psych Psych Narrative: Patient is minimally verbal and does answer some questions appropriately Assessment & Plan Assessment/Plan (1) Generalized weakness: (2) COVID-19: PLAN: Plan 1. Generalized weakness secondary to COVID-19 infection and multiple medical problems-patient will be seen by PT and OT, COVID-19 does not need to be treated-patient is not hypoxic. Continue PT and OT, patient will need placement in a [facility] facility for inpatient rehab services-we are currently awaiting approval from her insurance carrier #2 COVID-19 infection-supportive care will be administered, patient's breath sounds are clear today, I will stop her aerosol treatments #3 dementia-complicates care, management, recovery, and prognosis, patient is on memantine and Aricept #[address] of the chest showing presence of multiple solid noncalcified and cavitary lung lesions-patient remains on Levaquin 500 mg daily with the last dose on 06/16/2024, she will need follow-up with pulmonary medicine-I discussed this with the patient's son . #5 acute severe protein and caloric malnutrition-related to dementia and acute illness as evidenced by 3.7% unintended weight loss and p.o. intake meeting less than 75% of estimated nutritional needs x 1 week-continue liberal regular diet as ordered, it was recommended that I consider an appetite stimulant, patient will remain on Remeron nightly for this Total clinical time spent by myself addressing the patient's medical issues, reviewing her data, and collaborating with patient's care team: 35 minutes Charges/Coding Visit Charges Inpatient E&M: 29344 Subs Hosp L2
[2024-06-12] MEDS: Propranolol 10 MG Tablet 20 MG PO (16:48)
[2024-06-12] MEDS: Mirtazapine 15 MG Tablet PO (20:17)
[2024-06-12] MEDS: Donepezil HCl 10 MG Tablet PO (20:17)
[2024-06-12] MEDS: Pramipexole Di-HCl 0.5 MG Tablet PO (20:17)
[2024-06-13 05:00] VITALS: BP 133/62; PULSE 65; RESP 15; TEMP 36.6; O2SAT 94
[2024-06-13] MEDS: levoFLOXacin 250 MG Tablet PO (06:40)
[2024-06-13] MEDS: Acetaminophen 325 MG Tablet 650 MG PO ×2 (06:45→16:18)
[2024-06-13 07:55] VITALS: BP 117/94; PULSE 72; RESP 18; TEMP 36.2; O2SAT 94
[2024-06-13] MEDS: traMADol 50 MG Tablet PO ×2 (07:58→18:19)
[2024-06-13] MEDS: Memantine Hydrochloride 10 MG Tablet PO ×2 (07:58→22:20)
[2024-06-13] MEDS: Enoxaparin 40 MG/0.4 ML Syringe SC (07:58)
--- NOTE | 2024-06-13 09:33 | PCM.PN.HOSP ---
Subjective Subjective No issues overnight, continue to have her lumbar back pain which is chronic for her Objective Data Objective Data Vital Signs: Vital Signs Temp Pulse Resp BP Pulse Ox O2 Del Method O2 Flow Rate 97.2 F L 72 18 117/94 H 94 Room Air 2 06/13/24 07:55 06/13/24 07:55 06/13/24 07:55 06/13/24 07:55 06/13/24 07:55 06/13/24 07:55 06/11/24 05:48 Oxygen Flow Rate (L/min) 2 Oxygen Delivery Method Room Air Weight: 100 lb 3.2 oz Body Mass Index (BMI) 16.7 Intake & Output: Intake and Output for Last 24 Hours 06/12/24 06/13/24 06/14/24 03:59 03:59 03:59 Intake Total 750 / 750 200 / 200 Balance 750 / 750 200 / 200 Medical Nutrition Assessment Dietitian: Malnutrition Criteria Met Start: 06/08/24 08:05 Freq: Status: Active Protocol: Document 06/08/24 08:05 SLA (Rec: 06/08/24 08:05 SLA [email or web address]) Nutrition Malnutrition Evidence of Malnutrition Exists Yes Malnutrition (severe): Acute Illness/Injury Evidenced By Suboptimal Energy Intake ( Severe),Weight Loss (Severe), Physical Changes (Moderate) Clinical Problem Acute Disease or Injury Related Malnutrition Etiology related to dementia and acute illness Signs/Symptoms as evidenced by 3.7% unintended wt loss and po intake meeting <75% of est nutritional needs x 1 wk Status Active Problem Recommendation Dietitian Recommendations/Changes Continue liberal regular diet as ordered - will give fort foods w/ meals as able Will provide 4 oz chocolate EPHP tid w/ meals for increased nutrition if consumed Rec consider appetite stimulant to help encourage increased po intake Lab / Micro Data 06/08/24 04:50 06/08/24 04:50 Micro: Microbiology 06/07/24 17:05 Nasal Secretion MRSA (PCR) - Final 06/07/24 10:55 Mucosa - Nose SARS-CoV-2, Influenza & RSV (PCR) - Final SARS-CoV-2 (COVID 19 PCR) Physical Exam Narrative General: Alert, Oriented x3, Cooperative, No apparent distress HEENT: Atraumatic, PERRLA, EOMI, Normocephalic, hard of hearing Oral: Moist Mucosa Neck: Supple, No JVD Lungs: Diminished, Normal air movement, No rhonchi, No wheeze, No rales Cardiovascular: Regular rate, Regular Rhythm, Normal S1, Normal S2, No murmurs Abdomen: Soft, Non Tender, Non-Distended, No Hepato-splenomegaly Extremities: No edema, Capillary Refill Less than 3 Seconds Skin: No rashes, No breakdown Musculoskeletal: No Tenderness to Palpation of Joints or Extremities Neurological: No focal neurological deficits, moves all extremities Psych/Mental Status: Flat Assessment & Plan Assessment/Plan (1) Generalized weakness: (2) COVID-19: PLAN: Plan 1. Generalized weakness and debility secondary to COVID-19 ? PT/OT ? Plan for SNF placement ? Chronic lumbar back pain is likely complicating her generalized weakness ? She is out of precautions today ? Continue with Levaquin secondary to a CT scan of multiple solid noncalcified cavitary lung lesions, she will follow-up with pulmonology as an outpatient 2. Dementia ? Stable ? Continue with her home medications 3. acute severe protein and caloric malnutrition-related to dementia and acute illness as evidenced by 3.7% unintended weight loss and p.o. intake meeting less than 75% of estimated nutritional needs x 1 week-continue liberal regular diet as ordered, it was recommended that I consider an appetite stimulant, patient will remain on Remeron nightly for this DVT: Lovenox Charges/Coding Visit Charges Inpatient E&M: 59819 Subs Hosp L2
--- NOTE | 2024-06-13 09:35 | CASEMGMT ---
Social Work- SW sent clinical updates to [facility] via [employer] and inquired on precert status. SW remains available to follow for d/c planning needs. Plan: DOMINIC; prcert pend ZENOBIA Zarate
[2024-06-13 11:00] VITALS: BP 129/98; PULSE 91; RESP 18; TEMP 36.8; O2SAT 92
[2024-06-13] MEDS: Morphine 2 MG/ML Syringe IV (11:04)
[2024-06-13] MEDS: 0.9% Saline Lock 10 ML Syringe IV (11:04)
[2024-06-13] MEDS: Propranolol 10 MG Tablet 20 MG PO ×2 (12:27→16:18)
[2024-06-13 13:06] LABS: ANTINUCLEAR ANTIBODIES DIRECT Negative (Negative)
[2024-06-13] MEDS: LORazepam 2 MG/ML Syringe 0.5 MG IV (17:37)
[2024-06-13 17:50] VITALS: BP 124/59; PULSE 62; RESP 18; TEMP 36.5; O2SAT 93
[2024-06-13 20:12] VITALS: BP 106/49; PULSE 63; RESP 16; TEMP 36.6; O2SAT 93
[2024-06-13] MEDS: Mirtazapine 15 MG Tablet PO (22:20)
[2024-06-13] MEDS: Donepezil HCl 10 MG Tablet PO (22:20)
[2024-06-13] MEDS: Pramipexole Di-HCl 0.5 MG Tablet PO (22:20)
[2024-06-14 05:42] LABS: Absolute Lymphocyte Count 1.57 X10^3/uL (0.83-4.51); Absolute Neutrophil Count 6.5 X10^3/uL (2.0-7.7); Basophil# 0.03 X10^3/uL; Basophil% 0.3 % (0-1); Eosinophil# 0.17 X10^3/uL; Eosinophils% 1.8 % (0-5); Hematocrit 34.3 % (37-47); Hemoglobin 10.4 g/dL (12.0-15.0); Lymphocyte # 1.57 X10^3/ul (0.83-4.51); Lymphocyte % 16.3 % (19-41); Mean Corp Hgb Conc 30.3 g/dL (32-36); Mean Corpuscular Volume 85.8 fL (81-99); Mean Platelet Vol. 8.7 fl (6.2-12.0); Monocyte# 1.27 X10^3/uL; Monocyte% 13.2 % (0-10); NRBC Flagged by Analyzer 0 % (0-5); Neutrophil # 6.49 X10^3/uL (2.7-7.7); Neutrophil % 67.5 % (47-70); Platelet Count 401 K/mm3 (150-450); RBC Distribution Width CV 14.3 % (11.6-14.6); RBC Distribution Width SD 44.6 fl (35.1-43.9); White Blood Count 9.6 K/mm3 (4.4-11.0)
--- NOTE | 2024-06-14 05:47 | NURSING ---
Pt yelling and screaming. Pt tried to rip off the sharps container off the wall. Pt threw her crayons and trash can outside of room. Son called and will be in. unable to reason w pt at this time.
[2024-06-14 06:10] LABS: Anion Gap 4 (5-15); BUN 21 mg/dL (7-18); BUN/Creat Ratio 22.1 RATIO (10-20); Calcium,Total 9.2 mg/dL (8.5-10.1); Chloride 104 mmol/L (98-107); Creatinine, Serum 0.95 mg/dL (0.55-1.02); EST Glomerular Filtration Rate 60 mL/min (>60); Est Glom Filt Rate - Afr Amer 72 mL/min (>60); Estimated Creatinine Clearance 32.19 ml/min; Glucose 99 mg/dL (74-106); Potassium 3.2 mmol/L (3.5-5.1); Sodium Level 137 mmol/L (136-145)
--- NOTE | 2024-06-14 06:54 | NURSING ---
Pt agitated. Pt refused to have her vitals taken and refused her morning medications. Pt would also not take any prn pain medications. Pt keeps stating get out. I don't want you in here
[2024-06-14 07:59] VITALS: BP 123/54; PULSE 64; RESP 18; TEMP 36.6; O2SAT 93
--- NOTE | 2024-06-14 09:30 | PN.HOSP_ITS ---
Subjective Subjective Agitated all night, sundowning with dementia Objective Data Objective Data Vital Signs: Vital Signs Temp Pulse Resp BP Pulse Ox O2 Del Method O2 Flow Rate 97.8 F 64 18 123/54 H 93 Room Air 2 06/14/24 07:59 06/14/24 07:59 06/14/24 07:59 06/14/24 07:59 06/14/24 07:59 06/14/24 08:11 06/11/24 05:48 Oxygen Flow Rate (L/min) 2 Oxygen Delivery Method Room Air Weight: 100 lb 3.2 oz Body Mass Index (BMI) 16.7 Intake & Output: Intake and Output for Last 24 Hours 06/13/24 06/14/24 06/15/24 03:59 03:59 03:59 Intake Total 750 / 750 400 / 400 200 / 200 Balance 750 / 750 400 / 400 200 / 200 Medical Nutrition Assessment Dietitian: Malnutrition Criteria Met Start: 06/08/24 08:05 Freq: Status: Active Protocol: Document 06/13/24 12:52 SLA (Rec: 06/13/24 12:52 SLA [email or web address]) Nutrition Malnutrition Evidence of Malnutrition Exists Yes Malnutrition (severe): Acute Illness/Injury Evidenced By Suboptimal Energy Intake ( Severe),Weight Loss (Severe), Physical Changes (Moderate) Clinical Problem Acute Disease or Injury Related Malnutrition Etiology related to dementia and acute illness Signs/Symptoms as evidenced by 3.7% unintended wt loss and 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 Problem Recommendation Dietitian Recommendations/Changes Continue liberal regular diet as ordered - will give fort foods w/ meals as able Continue to provide 4 oz chocolate EPHP tid w/ meals for increased nutrition if consumed Continue appetite stimulant to help encourage increased po intake Monitor wts as available Lab / Micro Data 06/14/24 05:26 06/14/24 05:26 Labs: Laboratory Results - last 24 hr 06/10/24 03:50: MICHAEL Screen Negative 06/14/24 05:26: WBC 9.6, RBC 4.00 L, Hgb 10.4 L, Hct 34.3 L, MCV 85.8, MCH 26.0 L, MCHC 30.3 L, RDW Std Deviation 44.6 H, RDW Coeff of Tiffanie 14.3, Plt Count 401, MPV 8.7, Immature Gran % (Auto) 0.900, Neut % (Auto) 67.5, Lymph % (Auto) 16.3 L , [place] % (Auto) 13.2 H, Eos % (Auto) 1.8, Baso % (Auto) 0.3, Absolute Neuts (auto) 6.5, Absolute Lymphs (auto) 1.57, Nucleated RBC % 0, Sodium 137, P otassium 3.2 L, Chloride 104, Carbon Dioxide 29.0, Anion Gap 4 L, BUN 21 H, Creatinine 0.95, Estim Creat Clear Calc 32.19, Est GFR (MDRD) Af Amer 72, Est GFR (MDRD) Non-Af 60, BUN/Creatinine Ratio 22.1 H, Glucose 99, Calcium 9.2 Micro: Microbiology 06/07/24 17:05 Nasal Secretion MRSA (PCR) - Final 06/07/24 10:55 Mucosa - Nose SARS-CoV-2, Influenza & RSV (PCR) - Final SARS-CoV-2 (COVID 19 PCR) Physical Exam Narrative General: Alert, Oriented x1, No apparent distress HEENT: Atraumatic, PERRLA, EOMI, Normocephalic, hard of hearing Oral: Moist Mucosa Neck: Supple, No JVD Lungs: Diminished, Normal air movement, No rhonchi, No wheeze, No rales Cardiovascular: Regular rate, Regular Rhythm, Normal S1, Normal S2, No murmurs Abdomen: Soft, Non Tender, Non-Distended, No Hepato-splenomegaly Extremities: No edema, Capillary Refill Less than 3 Seconds Skin: No rashes, No breakdown Musculoskeletal: No Tenderness to Palpation of Joints or Extremities Neurological: No focal neurological deficits, moves all extremities Psych/Mental Status: Flat Assessment & Plan Assessment/Plan (1) Generalized weakness: (2) COVID-19: PLAN: Plan 1. Generalized weakness and debility secondary to COVID-19 ? PT/OT ? Plan for SNF placement ? Chronic lumbar back pain is likely complicating her generalized weakness ? She is out of precautions today ? Continue with Levaquin secondary to a CT scan of multiple solid noncalcified cavitary lung lesions, she will follow-up with pulmonology as an outpatient, will complete 7 days that she refused this morning's dose 2. Dementia ? Stable ? Continue with her home medications ? Will start on Seroquel 25 mg p.o. every night 3. acute severe protein and caloric malnutrition-related to dementia and acute illness as evidenced by 3.7% unintended weight loss and p.o. intake meeting less than 75% of estimated nutritional needs x 1 week-continue liberal regular diet as ordered, it was recommended that I consider an appetite stimulant, patient will remain on Remeron nightly for this DVT: Deneen Charges/Coding Visit Charges Inpatient E&M: 26505 Subs Hosp L2
[2024-06-14] MEDS: Acetaminophen 325 MG Tablet 650 MG PO (10:56)
[2024-06-14] MEDS: Propranolol 10 MG Tablet 20 MG PO ×2 (10:56→17:04)
--- NOTE | 2024-06-14 13:15 | CASEMGMT ---
Discharge Planning [facility] SW updated. Thalia Robles DC Planning Asst.
--- NOTE | 2024-06-14 13:32 | PCM.TXEXTCAR ---
Diet Diet Order/Speech Therapy: 06/07/24 15:52 Diet: Regular - General Food consistency:: Regular Liquid Consistency:: Regular/Thin Type of Dietary Supplement:: Ensure Plus High Protein Diet Comments: 120 ml chocolate EPHP tid w/ meals; fortified foods as able tid Routine Orders/Code Status Routine Lab Work: CBC and BMP Code Status: DNRCC DC O2, CPAP, BIPAP needs Home O2 Discharge instructions: No Therapies Physical Therapy: Eval and Treat Occupational Therapy: Eval and Treat Problem/Diagnosis (1) Generalized weakness: Status: Acute Code(s): R53.1 - Weakness (2) COVID-19: Status: Acute Code(s): U07.1 - COVID-19 Plan 1. Generalized weakness and debility secondary to COVID-19 ? PT/OT ? Plan for SNF placement ? Chronic lumbar back pain is likely complicating her generalized weakness ? She is out of precautions today ? Continue with Levaquin secondary to a CT scan of multiple solid noncalcified cavitary lung lesions, she will follow-up with pulmonology as an outpatient, will complete 7 days that she refused this morning's dose 2. Dementia ? Stable ? Continue with her home medications ? Will start on Seroquel 25 mg p.o. every night 3. acute severe protein and caloric malnutrition-related to dementia and acute illness as evidenced by 3.7% unintended weight loss and p.o. intake meeting less than 75% of estimated nutritional needs x 1 week-continue liberal regular diet as ordered, it was recommended that I consider an appetite stimulant, patient will remain on Remeron nightly for this DVT: Lovenox Allergies/Procedures Done in Hospital Allergies No Known Allergies Allergy (Verified 06/07/24 10:05) Procedures: None Type of Care/Length of Stay Estimated LOS: Convalescent Care Less Than 30 days Type of Care Needed: Skilled Rehab Potential: Fair Prognosis: Fair Additional Orders/Day of Discharge Day of Discharge: 06/14/24 Dietary and Speech Recommendations Dietitian Recommendations/Changes: Continue liberal regular diet as ordered - will give fort foods w/ meals as able Continue to provide 4 oz chocolate EPHP tid w/ meals for increased nutrition if consumed Continue appetite stimulant to help encourage increased po intake Monitor wts as available Discharge Plan Admission Admit Date/Time: 06/07/24 14:15 Attending Provider: Pravin Cruz Primary Care Provider: Gogo Ro Consulting Providers: Hilaria Villagran; John Johnston Instructions Additional Instructions / Restrictions: Outpatient follow-up with pulmonology for multiple solid noncalcified cavitary lung lesions being treated with Levaquin per pulmonology's recommendations Discharge Orders/Prescriptions Prescriptions: New quetiapine 25 mg Tablet 25 mg PO DAILY@1800 Qty: 0 0RF levofloxacin 250 mg Tablet 250 mg PO DAILY@0600 4 Days Qty: 0 0RF Continued tramadol 50 mg tablet 50 mg PO Q8H PRN (Reason: Pain) donepezil 10 mg tablet 10 mg PO QHS Qty: 30 6RF memantine 10 mg tablet 10 mg PO BID Qty: 60 6RF pramipexole 0.5 mg tablet 0.5 mg PO QHS Qty: 30 6RF calcium citrate-vitamin D3 250 mg-5 mcg (200 unit) tablet 1 tab PO TID Qty: 90 6RF cholecalciferol (vitamin D3) [Vitamin D3] 25 mcg (1,000 unit) tablet 25 mcg PO DAILY Qty: 30 6RF acetaminophen 325 mg Tablet 650 mg PO Q4H PRN PRN (Reason: Fever, pain 1-03/24) Qty: 30 0RF sennosides-docusate sodium [Stool Softener-Stimulant Laxat] 8.6-50 mg Tablet 2 tab PO BID PRN PRN (Reason: Constipation) Qty: 0 0RF menthol-zinc oxide [Calmoseptine] 0.44-20.6 % Ointment 1 applic topical 4X/DAY Qty: 0 0RF Protocol: *Topical Application Instructions APPLICATION INSTRUCTIONS: apply to affected region propranolol 20 mg tablet 20 mg PO .COMPLEX Qty: 120 6RF Rx Instructions: Take 2 tablets orally every morning, 1 tablet daily at noon and 1 tablet q5 p.m. Referrals / Follow Up: Gogo Ro MD [Primary Care Provider] - Disposition Disposition (needs filled in before D/C Order can be placed): [facility] Facility
--- NOTE | 2024-06-14 13:55 | DS.PCM_ITS ---
Providers Date of Admission: 06/07/24 Primary Care Physician: Dr. 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 Medicine Routine Consulting Provider: Intensivists/Pulmonary Med Reason for Consult: abnormal CT of chest EMERGENT Consult: No MD Notified: Yes Date Notified: 06/09/24 Time Notified: 10:21 Method of Notification: Verbal Reason For Visit: COVID Diagnosis Discharge Diagnosis (1) Generalized weakness: Status: Acute Code(s): R53.1 - Weakness (2) COVID-19: Status: Acute Code(s): U07.1 - COVID-19 Medications at Discharge Home Medications tramadol 50 mg tablet 50 mg PO Q8H PRN Pain 02/11/22 acetaminophen 325 mg tablet 650 mg (2 x 325 mg) PO Q4H PRN PRN Fever, pain 1- 03/24 #30 tabs 04/23/23 menthol 0.44 %-zinc oxide 20.6 % topical ointment (Calmoseptine) 1 applic topical 4X/DAY #0 grams 04/23/23 sennosides 8.6 mg-docusate sodium 50 mg tablet (Stool Softener-Stimulant Laxative) 2 tab PO BID PRN PRN Constipation #0 tabs 04/23/23 calcium 250 mg (as citrate)-vitamin D3 5 mcg (200 unit) tablet 1 tab PO TID Supplement #90 tabs 01/20/24 cholecalciferol (vitamin D3) 25 mcg (1,000 unit) tablet (Vitamin D3) 25 mcg PO DAILY #30 tabs 01/20/24 donepezil 10 mg tablet 10 mg PO QHS #30 tabs 01/20/24 memantine 10 mg tablet 10 mg PO BID #60 tabs 01/20/24 pramipexole 0.5 mg tablet 0.5 mg PO QHS #30 tabs 01/20/24 propranolol 20 mg tablet 20 mg PO .COMPLEX #120 tabs 02/23/24 levofloxacin 250 mg tablet 250 mg PO DAILY@0600 4 days #0 tabs 06/14/24 quetiapine 25 mg tablet 25 mg PO DAILY@1800 #0 tabs 06/14/24 Hospital Course Operations None Procedures None Summary of Care Provided Minutes Spent on Discharge: 33 Hospital Course: Per HPI: SAPNA GASCA, is a 84 F with past medical history of mild dementia, actinic keratitis, essential tremor, low back pain, osteoporosis, prior left hip fracture, anxiety who presents to the ED for concerns regarding progressive fatigue, for the last 1 week with associated chills. The history is provided by her son [bedside], patient is hard of hearing and did not participate in most of the interview Since the last 7 to 10 days having ongoing symptoms of increased fatigability, tired and overall decreased vitality. For this concern she was brought to the ED a week back and was started on antibiotics for concerns of urinary tract infection. However despite the antibiotic therapy she has not responded, since the last 2 days he is also having fever with chills, decreased appetite and difficulty taking care of herself. She has cough, intermittent for the past few months. No shortness of breath/worsening respiratory status/PND/orthopnea. Baseline status: Lives by herself, has family [children] close by, also has direct support professional home health that supports with cooking. She does not cook, does not drive, does not operate the stove, but is able to microwave food. Walks using a cane, has mild dementia, able to take care of basic transactions via self. Previously seen in the ED on 05/30/2024 for concerns regarding confusion, there was 1+ bacteria in the urine and was discharged on cephalexin 500 mg p.o. Today in the ED, WBC 6.4, hemoglobin 10.4, platelet count not reported, INR 0.9, APTT 21.3, sodium 138, potassium 4.1, creatinine 0.9, lactic acid 1.1, albumin 2.7, urine protein is negative, no urine WBCs Hospital Course: 1. Generalized weakness and debility secondary to COVID-19/dementia?84-year-old female presented to the hospital with increased debility and inability to complete ADLs. She does positive for COVID but was not hypoxic therefore was not treated with Decadron. She does have significant dementia which is led to so she has been started on Seroquel 25 mg to be given every day at 1800. I discussed with the son the plan for possible discharge today he expressed understanding there is benefits going to the longterm and would like for her to have rehab. She does have multiple solid noncalcified cavitary lung lesions in pulmonology was consulted initially on her course who recommended Levaquin, she was transition to 250 mg secondary to renal function by pharmacy. Will plan for 4 more days on discharge. I recommend outpatient follow-up with pulmonology to monitor these lung lesions. Will continue with her medications for dementia. Physical Exam Narrative General: Alert, Oriented x1, No apparent distress HEENT: Atraumatic, PERRLA, EOMI, Normocephalic, hard of hearing Oral: Moist Mucosa Neck: Supple, No JVD Lungs: Diminished, Normal air movement, No rhonchi, No wheeze, No rales Cardiovascular: Regular rate, Regular Rhythm, Normal S1, Normal S2, No murmurs Abdomen: Soft, Non Tender, Non-Distended, No Hepato-splenomegaly Extremities: No edema, Capillary Refill Less than 3 Seconds Skin: No rashes, No breakdown Musculoskeletal: No Tenderness to Palpation of Joints or Extremities Neurological: No focal neurological deficits, moves all extremities Psych/Mental Status: Flat Medical Records Data Medical Nutrition Assessment Dietitian: Malnutrition Criteria Met Start: 06/08/24 08:05 Freq: Status: Active Protocol: Document 06/13/24 12:52 [facility] (Rec: 06/13/24 12:52 SLA [email or web address]) Nutrition Malnutrition Evidence of Malnutrition Exists Yes Malnutrition (severe): Acute Illness/Injury Evidenced By Suboptimal Energy Intake ( Severe),Weight Loss (Severe), Physical Changes (Moderate) Clinical Problem Acute Disease or Injury Related Malnutrition Etiology related to dementia and acute illness Signs/Symptoms as evidenced by 3.7% unintended wt loss and po intake meeting <75% of est nutritional needs x 1 wk lpta Status Active Problem Recommendation Dietitian Recommendations/Changes Continue liberal regular diet as ordered - will give fort foods w/ meals as able Continue to provide 4 oz chocolate EPHP tid w/ meals for increased nutrition if consumed Continue appetite stimulant to help encourage increased po intake Monitor wts as available Weight / BMI Weight Weight: 100 lb 3.2 oz Body Mass Index (BMI) 16.7 ABG / Lab / Microbiology Data 06/14/24 05:26 06/14/24 05:26 Laboratory: Laboratory Results - last 24 hr 06/14/24 05:26: WBC 9.6, RBC 4.00 L, Hgb 10.4 L, Hct 34.3 L, MCV 85.8, MCH 26.0 L, MCHC 30.3 L, RDW Std Deviation 44.6 H, RDW Coeff of Tiffanie 14.3, Plt Count 401, MPV 8.7, Immature Gran % (Auto) 0.900, Neut % (Auto) 67.5, Lymph % (Auto) 16.3 L , Dale % (Auto) 13.2 H, Eos % (Auto) 1.8, Baso % (Auto) 0.3, Absolute Neuts (auto) 6.5, Absolute Lymphs (auto) 1.57, Nucleated RBC % 0, Sodium 137, P otassium 3.2 L, Chloride 104, Carbon Dioxide 29.0, Anion Gap 4 L, BUN 21 H, Creatinine 0.95, Estim Creat Clear Calc 32.19, Est GFR (MDRD) Af Amer 72, Est GFR (MDRD) Non-Af 60, BUN/Creatinine Ratio 22.1 H, Glucose 99, Calcium 9.2 Microbiology: Microbiology 06/07/24 17:05 Nasal Secretion MRSA (PCR) - Final 06/07/24 10:55 Mucosa - Nose SARS-CoV-2, Influenza & RSV (PCR) - Final SARS-CoV-2 (COVID 19 PCR) D/C Instructions DC O2, CPAP, BIPAP Needs Home O2 Discharge instructions: No Meaningful Use Info Meaningful Use Meaningful Use Diagnoses (Choose all that apply): None applicable Ischemic Stroke Statin Dosing Therapy Reference: STATIN DOSE THERAPY REFERENCE: * Patients > 75 years receive moderate or high dose statin therapy. * Patients 75 years or YOUNGER should receive HIGH intensity statin dose unless contraindicated. You will be required to document reason for non-treatment if statin daily dose does not meet guidelines. HIGH DOSE STATIN THERAPY DAILY Atorvastatin > than or = to 40 mg Rosuvastatin > than or = to 20 mg Amlodipine + Atorvastatin > than or = to 2.5/40 mg Ezetimibe + Simvastatin 10/80 mg Simvastatin 80mg Discharge Plan Admission Admit Date/Time: 06/07/24 14:15 Attending Provider: Pravin Cruz Primary Care Provider: Gogo Ro Consulting Providers: Hilaria Villagran; John Johnston Instructions Additional Instructions / Restrictions: Outpatient follow-up with pulmonology for multiple solid noncalcified cavitary lung lesions being treated with Levaquin per pulmonology's recommendations Discharge Orders/Prescriptions Prescriptions: New quetiapine 25 mg Tablet 25 mg PO DAILY@1800 Qty: 0 0RF levofloxacin 250 mg Tablet 250 mg PO DAILY@0600 4 Days Qty: 0 0RF Continued tramadol 50 mg tablet 50 mg PO Q8H PRN (Reason: Pain) donepezil 10 mg tablet 10 mg PO QHS Qty: 30 6RF memantine 10 mg tablet 10 mg PO BID Qty: 60 6RF pramipexole 0.5 mg tablet 0.5 mg PO QHS Qty: 30 6RF calcium citrate-vitamin D3 250 mg-5 mcg (200 unit) tablet 1 tab PO TID Qty: 90 6RF cholecalciferol (vitamin D3) [Vitamin D3] 25 mcg (1,000 unit) tablet 25 mcg PO DAILY Qty: 30 6RF acetaminophen 325 mg Tablet 650 mg PO Q4H PRN PRN (Reason: Fever, pain 1-03/24) Qty: 30 0RF sennosides-docusate sodium [Stool Softener-Stimulant Laxat] 8.6-50 mg Tablet 2 tab PO BID PRN PRN (Reason: Constipation) Qty: 0 0RF menthol-zinc oxide [Calmoseptine] 0.44-20.6 % Ointment 1 applic topical 4X/DAY Qty: 0 0RF Protocol: *Topical Application Instructions APPLICATION INSTRUCTIONS: apply to affected region propranolol 20 mg tablet 20 mg PO .COMPLEX Qty: 120 6RF Rx Instructions: Take 2 tablets orally every morning, 1 tablet daily at noon and 1 tablet q5 p.m. Referrals / Follow Up: Gogo Ro MD [Primary Care Provider] - Disposition Disposition (needs filled in before D/C Order can be placed): [facility] Charges/Coding Visit Charges Inpatient E&M: 25706 Disch Hosp >30min
--- NOTE | 2024-06-14 13:58 | CASEMGMT ---
Social Work- Precert has been obtained.? Physician updated and pt is ready for discharge today.? PASRR completed in [facility]. DCA and bedside nurse notified of discharge. Disposition:[facility], skilled level of care under convalescent stay. ZENOBIA Zarate
--- NOTE | 2024-06-14 14:20 | CASEMGMT ---
Discharge Planning Discharge orders, signed med and transport time sent to [facility] via [facility]. Physicians will transport patient by wheelchair at 6:30p. Nursing, SW, pt, and her son (Kwesi) updated. Thalia Robles DC Planning Asst.
[2024-06-14 14:28] VITALS: BP 130/60; PULSE 60; RESP 18; TEMP 36.6; O2SAT 95
--- NOTE | 2024-06-14 14:36 | NURSING ---
tried to call report 2 times and could only get a answering machine. Will try again later.
--- NOTE | 2024-06-14 14:52 | NURSING ---
Called report to Mary at [facility] [phone]. Pt to be picked up at 18:30 tonight.
[2024-06-16 16:07] LABS: Aspirgillus flavus Negative (Neg:<1:1); Aspirgillus fumigatus Negative (Neg:<1:1); Aspirgillus niger Negative (Neg:<1:1); CCP IgG Antibodies 8 units (0-19); Cytoplasmic Ab (C-ANCA) <1:20 titer (Neg:<1:20); Perinuclear Ab (P-ANCA) <1:20 titer (Neg:<1:20)
== END 2024-06-14 18:40 | disposition skilled nursing facility (03) | DRG 177 ==
LOC: ED 11:04 → MS3 14:46
PROVIDERS: Internal Medicine; Internal Medicine Critical Care Medicine; Admitting Provider Internal Medicine; Emergency Provider Emergency Medicine; PCP Family Medicine; Visit Provider Family Medicine
DX: U07.1 COVID-19 (principal); F03.911 Unspecified dementia, unspecified severity, with agitation; E43 Unspecified severe protein-calorie malnutrition; F05 Delirium due to known physiological condition; Z68.1 Body mass index [BMI] 19.9 or less, adult; I10 Essential (primary) hypertension; E78.5 Hyperlipidemia, unspecified; M54.50 Low back pain, unspecified; G25.0 Essential tremor; Z87.891 Personal history of nicotine dependence; G89.29 Other chronic pain; R53.81 Other malaise; Z79.899 Other long term (current) drug therapy; R91.8 Other nonspecific abnormal finding of lung field; R00.1 Bradycardia, unspecified; I44.7 Left bundle-branch block, unspecified; R94.31 Abnormal electrocardiogram [ECG] [EKG]
CPT/HCPCS: 36415; 70450; 71045; 71260; 80048; 80053; 80076; 81001; 83605; 83690; 83735; 84100; 84443; 84484; 85025; 85610; 85730; 86037; 86038; 86200; 86431; 86480; 86606; 87631; 87641; 93005; 94640; 96361; 96372; 96374; 96375; 97110; 97116; 97162; 97166; 97530; 97535; 97802; 99221; 99285; P9612; Q9967; A4216; G0378

== ENCOUNTER → 2024-08-01 05:00 | Outpatient (REF) | payer OTHER, SELFPAY ==
[2024-08-01 08:24] LABS: Absolute Lymphocyte Count 1.98 X10^3/uL (0.83-4.51); Absolute Neutrophil Count 4.1 X10^3/uL (2.0-7.7); Basophil# 0.07 X10^3/uL; Basophil% 0.9 % (0-1); Eosinophil# 0.37 X10^3/uL; Eosinophils% 4.8 % (0-5); Hemoglobin 11.4 g/dL (12.0-15.0); Lymphocyte # 1.98 X10^3/ul (0.83-4.51); Lymphocyte % 25.7 % (19-41); Mean Corp Hgb Conc 29.2 g/dL (32-36); Mean Corpuscular Hgb 25.6 pg (27.0-32.0); Mean Corpuscular Volume 87.4 fL (81-99); Monocyte# 1.09 X10^3/uL; Monocyte% 14.2 % (0-10); NRBC Flagged by Analyzer 0 % (0-5); Neutrophil # 4.12 X10^3/uL (2.7-7.7); Neutrophil % 53.6 % (47-70); Platelet Count 408 K/mm3 (150-450); RBC Distribution Width CV 15.6 % (11.6-14.6); RBC Distribution Width SD 49.8 fl (35.1-43.9); Red Blood Count 4.46 M/mm3 (4.2-5.4); White Blood Count 7.7 K/mm3 (4.4-11.0)
[2024-08-01 08:52] LABS: Anion Gap 6 (5-15); BUN 21 mg/dL (7-18); BUN/Creat Ratio 20.6 RATIO (10-20); Calcium,Total 10.1 mg/dL (8.5-10.1); Chloride 101 mmol/L (98-107); Creatinine, Serum 1.02 mg/dL (0.55-1.02); EST Glomerular Filtration Rate 55 mL/min (>60); Est Glom Filt Rate - Afr Amer 67 mL/min (>60); Glucose 85 mg/dL (74-106); Potassium 4.1 mmol/L (3.5-5.1); Sodium Level 139 mmol/L (136-145)
== END ==
LOC: OLS.WHLTSB 05:00
PROVIDERS: PCP Internal Medicine; Visit Provider Internal Medicine
DX: E43 Unspecified severe protein-calorie malnutrition (principal); M62.561 Muscle wasting and atrophy, not elsewhere classified, right lower leg; M62.562 Muscle wasting and atrophy, not elsewhere classified, left lower leg; R26.2 Difficulty in walking, not elsewhere classified
CPT/HCPCS: 36415; 80048; 85025

== ENCOUNTER → 2024-08-03 | Outpatient (CLI) | payer MEDICARE, SELFPAY ==
--- NOTE | 2024-08-03 17:53 | CT_ITS ---
PROCEDURE: CHEST WITH CONTRAST REASON FOR EXAM: Cavitation of lung. Follow-up CT from 06/07/2024. TECHNIQUE: Contiguous axial scans of 2.5 mm slice thicknesses. Sagittal and coronal reconstruction images were obtained. One or more dose reduction techniques were used (e.g., automated exposure control, adjustment of mA and/or kv according to patient size, use of iterative reconstruction technique). CONTRAST: Isovue-300. 88 mL. COMPARISON: CT dated 06/07/2024. FINDINGS: Hardware: None. Lymph nodes: Stable prominent lymph node anterior to the origin of the right main bronchus. Other small stable mediastinal lymph nodes, non-suspicious. Heart and Vasculature: Normal heart size. No pericardial effusion. Fusiform dilatation of the ascending aorta measuring 4.4 cm, axial image 60. Coronary artery calcifications. Lungs and Airways: Numerous bilateral lung opacities and cavitating nodules are redemonstrated. Areas of ground-glass opacification are scattered throughout both lungs most prevalent in the lower lobes. Bronchiectatic changes are noted in the lower lobes, more prevalent on the left. Tree in bud nodular opacities are noted bilaterally, worse on the left. Pleura: No pleural effusion. No pneumothorax. Upper Abdomen: Visualized portions of the upper abdominal viscera are unremarkable. Bones and soft tissues: Osteopenia. Multilevel spondylosis. Levoscoliosis of the thoracolumbar spine. A 0.7 cm hypodense nodule in the left hepatic lobe, axial image 112. CT/Chest WITH Contrast IMPRESSION: 1. Multiple noncalcified non cavitary and cavitary nodules are redemonstrated. Areas of ground-glass opacification and tree-in-bud opacities are again noted bilaterally. Findings have not changed s ignificantly since the previous study. 2. Bilateral bronchiectatic changes, worse on the left. 3. Stable enlarged mediastinal lymph node. 4. Stable fusiform dilatation of the ascending aorta. 5. Hypodense nodule in the left hepatic lobe may represent a small hemangioma or cyst. Ultrasound may be helpful for further evaluation if indicated. 6. Other nonacute findings detailed above. Reading Location: [facility]
== END | disposition home or self-care (01) ==
LOC: CT 17:51
PROVIDERS: PCP Internal Medicine; Referring Provider Internal Medicine; Visit Provider Internal Medicine
DX: J98.4 Other disorders of lung (principal)
CPT/HCPCS: 71260; Q9967

== ENCOUNTER → 2024-08-29 | Outpatient (REF) | payer MEDICARE, SELFPAY ==
[2024-08-29 08:04] LABS: Absolute Neutrophil Count 5.4 X10^3/uL (2.0-7.7); Basophil# 0.05 X10^3/uL; Basophil% 0.6 % (0-1); Eosinophil# 0.17 X10^3/uL; Eosinophils% 2.2 % (0-5); Hematocrit 38.6 % (37-47); Hemoglobin 11.9 g/dL (12.0-15.0); Lymphocyte % 16.7 % (19-41); Mean Corp Hgb Conc 30.8 g/dL (32-36); Mean Corpuscular Hgb 26.6 pg (27.0-32.0); Mean Corpuscular Volume 86.2 fL (81-99); Mean Platelet Vol. 8.9 fl (6.2-12.0); Monocyte# 0.87 X10^3/uL; Monocyte% 11.2 % (0-10); NRBC Flagged by Analyzer 0 % (0-5); Neutrophil # 5.37 X10^3/uL (2.7-7.7); Neutrophil % 68.8 % (47-70); Platelet Count 389 K/mm3 (150-450); RBC Distribution Width CV 16.1 % (11.6-14.6); RBC Distribution Width SD 50.8 fl (35.1-43.9); Red Blood Count 4.48 M/mm3 (4.2-5.4); White Blood Count 7.8 K/mm3 (4.4-11.0)
[2024-08-29 13:53] LABS: Anion Gap 9 (5-15); BUN 18 mg/dL (4-19); Calcium,Total 9.6 mg/dL (7.6-11.0); Carbon Dioxide 27.1 mmol/L (21.0-32.0); Chloride 101 mmol/L (98-108); EST Glomerular Filtration Rate 64 (>60); Glucose 87 mg/dL (70-99); Potassium 4.1 mmol/L (3.3-5.1); Sodium Level 138 mmol/L (133-145)
== END ==
LOC: OLS.WHLTSB 05:00
PROVIDERS: PCP Internal Medicine; Visit Provider Internal Medicine
DX: E43 Unspecified severe protein-calorie malnutrition (principal); M62.561 Muscle wasting and atrophy, not elsewhere classified, right lower leg; M62.562 Muscle wasting and atrophy, not elsewhere classified, left lower leg
CPT/HCPCS: 36415; 80048; 85025

== ENCOUNTER → 2024-10-03 | Outpatient (REF) | payer OTHER, SELFPAY ==
[2024-10-03 08:05] LABS: Absolute Lymphocyte Count 2.02 X10^3/uL (0.83-4.51); Absolute Neutrophil Count 5.3 X10^3/uL (2.0-7.7); Basophil# 0.05 X10^3/uL; Basophil% 0.6 % (0-1); Eosinophil# 0.21 X10^3/uL; Eosinophils% 2.4 % (0-5); Hematocrit 39.7 % (37-47); Hemoglobin 12.1 g/dL (12.0-15.0); Lymphocyte # 2.02 X10^3/ul (0.83-4.51); Lymphocyte % 23.5 % (19-41); Mean Corp Hgb Conc 30.5 g/dL (32-36); Mean Corpuscular Hgb 26.6 pg (27.0-32.0); Mean Corpuscular Volume 87.3 fL (81-99); Mean Platelet Vol. 9.1 fl (6.2-12.0); Monocyte# 0.98 X10^3/uL; Monocyte% 11.4 % (0-10); NRBC Flagged by Analyzer 0 % (0-5); Neutrophil # 5.25 X10^3/uL (2.7-7.7); Neutrophil % 61.3 % (47-70); Platelet Count 456 K/mm3 (150-450); RBC Distribution Width CV 14.8 % (11.6-14.6); RBC Distribution Width SD 47.3 fl (35.1-43.9); Red Blood Count 4.55 M/mm3 (4.2-5.4); White Blood Count 8.6 K/mm3 (4.4-11.0)
[2024-10-03 09:19] LABS: AST(SGOT) 22 U/L (<=31); Alanine Aminotransfer ALT/SGPT 16 U/L (<=34); Albumin, Serum 3.9 g/dL (3.4-4.8); Alkaline Phosphatase 138 U/L (35-104); Anion Gap 11 (5-15); BUN 21 mg/dL (4-19); BUN/Creat Ratio 22.3 RATIO (10-20); Bilirubin, Direct < 0.08 mg/dL (0.00-0.30); Carbon Dioxide 28.4 mmol/L (21.0-32.0); Chloride 101 mmol/L (98-108); Creatinine, Serum 0.93 mg/dL (0.70-1.20); EST Glomerular Filtration Rate 61 (>60); Globulin 3.5 g/dL (2.2-4.2); Glucose 95 mg/dL (70-99); Potassium 4.1 mmol/L (3.3-5.1); Protein, Total 7.4 g/dL (5.9-8.4); Sodium Level 141 mmol/L (133-145); Total Bilirubin 0.18 mg/dL (0.00-1.30)
== END ==
LOC: OLS.WHLTSB 05:00
PROVIDERS: PCP Internal Medicine; Visit Provider Internal Medicine
DX: E43 Unspecified severe protein-calorie malnutrition (principal); M62.561 Muscle wasting and atrophy, not elsewhere classified, right lower leg; M62.562 Muscle wasting and atrophy, not elsewhere classified, left lower leg; R26.2 Difficulty in walking, not elsewhere classified
CPT/HCPCS: 36415; 80048; 80076; 82306; 85025

== ENCOUNTER → 2024-10-31 | Outpatient (REF) | payer MEDICARE, SELFPAY ==
[2024-10-31 07:45] LABS: Absolute Lymphocyte Count 1.57 X10^3/uL (0.83-4.51); Absolute Neutrophil Count 5.6 X10^3/uL (2.0-7.7); Basophil# 0.05 X10^3/uL; Basophil% 0.6 % (0-1); Eosinophil# 0.18 X10^3/uL; Eosinophils% 2.1 % (0-5); Hematocrit 36.3 % (37-47); Hemoglobin 11.3 g/dL (12.0-15.0); Lymphocyte # 1.57 X10^3/ul (0.83-4.51); Lymphocyte % 18.6 % (19-41); Mean Corp Hgb Conc 31.1 g/dL (32-36); Mean Corpuscular Hgb 26.8 pg (27.0-32.0); Mean Corpuscular Volume 86.2 fL (81-99); Mean Platelet Vol. 9.2 fl (6.2-12.0); Monocyte# 1.01 X10^3/uL; Monocyte% 11.9 % (0-10); NRBC Flagged by Analyzer 0 % (0-5); Neutrophil # 5.61 X10^3/uL (2.7-7.7); Neutrophil % 66.3 % (47-70); Platelet Count 353 K/mm3 (150-450); RBC Distribution Width CV 14.3 % (11.6-14.6); RBC Distribution Width SD 45.2 fl (35.1-43.9); Red Blood Count 4.21 M/mm3 (4.2-5.4); White Blood Count 8.5 K/mm3 (4.4-11.0)
[2024-10-31 07:48] LABS: Anion Gap 11 (5-15); BUN 18 mg/dL (4-19); BUN/Creat Ratio 17.8 RATIO (10-20); Calcium,Total 9.1 mg/dL (7.6-11.0); Carbon Dioxide 25.5 mmol/L (21.0-32.0); Chloride 103 mmol/L (98-108); Creatinine, Serum 0.99 mg/dL (0.70-1.20); EST Glomerular Filtration Rate 57 (>60); Glucose 92 mg/dL (70-99); Potassium 4.1 mmol/L (3.3-5.1); Sodium Level 139 mmol/L (133-145)
== END ==
LOC: OLS.WHLTSB 04:00
PROVIDERS: PCP Internal Medicine; Referring Provider Internal Medicine; Visit Provider Internal Medicine
DX: E43 Unspecified severe protein-calorie malnutrition (principal); M62.561 Muscle wasting and atrophy, not elsewhere classified, right lower leg; M62.562 Muscle wasting and atrophy, not elsewhere classified, left lower leg
CPT/HCPCS: 36415; 80048; 85025

== ENCOUNTER → 2024-11-08 | Outpatient (CLI) | payer MEDICARE, SELFPAY ==
--- NOTE | 2024-11-08 09:03 | ECHOD_ITS ---
Reason For Study Reason For Study: LBBB Procedure This was a 2D Doppler, Color Flow transthoracic echocardiogram. Exam performed in department. Left Ventricle Normal LV size. Mild concentric left ventricular hypertrophy. The LV systolic function is normal. EF is 60 %. Stage 1 diastolic dysfunction. Right Ventricle Normal right ventricle. Atria There is mild biatrial dilatation. Mitral Valve Moderate (2+) mitral valve insufficiency. Tricuspid Valve Moderately severe (3+) tricuspid valve insufficiency. Right ventricular systolic pressure estimated to be 41 mmHg. Aortic Valve Moderately calcific aortic valve. Mild aortic valve stenosis. Mean peak gradient 8 mmHg. Aortic valve area 1.5 cm??. Mild aortic valve regurgitation. Pulmonic Valve The pulmonic valve is not well visualized. Great Vessels Mildly dilated aortic root. Pericardium/Pleural No pericardial effusion. MMode/2D Measurements & Calculations LVIDd: 4.5 cm IVSd: 1.0 cm LVOT diam: 2.0 cm LVIDs: 3.3 cm LVPWd: 1.2 cm LVOT area: 3.2 cm2 RVDd: 3.1 cm FS: 27.1 % Ao root diam: 4.1 cm LAV(MOD-bp): 48.9 ml LVAd ap4: 20.2 cm2 LAV(MOD-bp) Indexed: 30.7 ml/m2 LVLd ap4: 6.2 cm LAV(MOD-sp2): 55.4 ml EDV(MOD-sp4): 54.0 ml LAV(MOD-sp4): 37.5 ml EDV(sp4-el): 55.9 ml LVAs ap4: 12.4 cm2 LVLs ap4: 5.2 cm ESV(MOD-sp4): 24.7 ml ESV(sp4-el): 24.8 ml EF(MOD-sp4): 54.3 % EF(sp4-el): 55.6 % SV(MOD-sp4): 29.3 ml SV(sp4-el): 31.1 ml LA A4 area: 14.1 cm2 SI(MOD-sp4): 18.4 ml/m2 LA dimension(2D): 3.5 cm RA A4 area: 14.4 cm2 TAPSE: 1.7 cm Time Measurements MV dec time: 0.30 sec Doppler Measurements & Calculations MV E max duc: 78.8 cm/sec Lat Peak E' Duc: 6.6 cm/sec Med Peak E' Duc: 4.3 cm/sec MV A max duc: 104.9 cm/sec E/E' lat: 11.9 E/E' med: 18.3 MV E/A: 0.75 Ao V2 max: 182.0 cm/sec LV V1 max: 83.6 cm/sec MV dec slope: 263.8 cm/sec2 Ao max P.3 mmHg LV V1 max P.8 mmHg Ao V2 mean: 129.7 cm/sec LV V1 mean P.9 mmHg Ao mean P.6 mmHg LV V1 mean: 66.5 cm/sec Ao V2 VTI: 42.2 cm LV V1 VTI: 19.5 cm AV (velocity ratio): 0.46 NAYAN(I,D): 1.5 cm2 NAYAN(V,D): 1.5 cm2 SV(LVOT): 62.7 ml PA V2 max: 86.3 cm/sec TR max duc: 302.6 cm/sec TR max P.6 mmHg ECHO/Echo Complete Interpretation Summary Mild concentric left ventricular hypertrophy. The LV systolic function is normal. EF is 60 %. Stage 1 diastolic dysfunction. There is mild biatrial dilatation. Moderate (2+) mitral valve insufficiency. Moderately severe (3+) tricuspid valve insufficiency. Right ventricular systolic pressure estimated to be 41 mmHg. Moderately calcific aortic valve. Mild aortic valve stenosis. Mean peak gradien t 8 mmHg. Aortic valve area 1.5 cm??. Mild aortic valve regurgitation. Mildly dilated aortic root. Ordering Physician: Yunior Desai Referring Physician: Genevieve Wu Performed By: Tanya Grigsby RDCS, RVT
== END | disposition home or self-care (01) ==
LOC: CVS 09:01
PROVIDERS: PCP Internal Medicine; Referring Provider Internal Medicine Cardiovascular Disease; Visit Provider Internal Medicine Cardiovascular Disease
DX: I44.7 Left bundle-branch block, unspecified (principal)
CPT/HCPCS: 93306

== ENCOUNTER → 2024-11-28 | Outpatient (REF) | payer OTHER, SELFPAY ==
--- OUTSIDE RECORDS SUMMARY | 2024-11-28 04:16 | XMS RPT_ITS | CCD ---
Author Organization [facility] Care Team Providers Care Marketing Strategy Analyst Name Role Phone Unavailable Primary Care Provider Unavailrogerio e Dr. Lalo Palm Primary Care Provider Dr. Lalo Palm Attending Provider Dr. Lalo Palm Referring Provider Dr. Angel [place] Emergency Provider Dr. Karon Nunes Admit Provider Dr. Karon Nunes Other Provider Dr. Darinel Carlos Attending Provider Dr. Darinel Carlos Other Provider Dr. Lalo Palm Primary Care Provider Dr. Lalo Palm Attending Provider Dr. Lalo Palm Referring Provider Dr. Vish Cook Attending Provider DR NICCI LEMUS MD Attending Unavailable DR NICCI LEMUS MD Primary Care Unavailable Dr. Lalo Palm Primary Care Provider Dr. Lalo Palm Referring Provider Dr. Vish Cook Attending Provider Seb COLLISION TECHNICIAN, COLLISION TECHNICIANRobbin Gonzalze Attending Provider Dr. Nicholas Cohen Emergency Provider Dr. Nicci Lemus Primary Care Provider Dr. Karon Nunes Admit Provider Dr. Karon Nunes Other Provider Dr. Darinel Carlos Attending Provider Dr. Darinel Carlos Other Provider Dr. Pravin Cruz Attending Provider Dr. rPavin Cruz Other Provider Dr. John Johnston Attending Provider Dr. John Johnston Other Provider HOFSTETTER LEATHER TACKER-C, DUNCAN M Unavailable LESLY SÁNCHEZ, RACHID Justin Unavailable TAQUERIA GORDON Unavailable Unavailable PHYSICAL THERAPY, CONSULT Unavailable Unavai lable PAIN MANAGEMENT, MYLA Unavailable Cuca RN, Sisi Unavailable Unavailable BONNY RN, DAYANNA Unavailable Unavailable Laura RN, Jaida Unavailable Unavailab jacklyn LEMUS MD, Tucker GRAJEDA Unavailable IVÁN MAGALLON Unavailable Unavailable Unavailable Unavailable Dr. Nicholas Cohen Emergency Provider Dr. Nicci Lemus Primary Care Provider Dr. Karon Nunes Admit Provider Dr. Karon Nunes Other Provider Dr. Darinel Carlos Other Provider Dr. John Johnston Attending Provider Dr. John Johnston Other Provider Dr. Pravin Cruz Other Provider Dr. Lalo Palm Referring Provider Dr. Vish Cook Attending Provider Dr. Nicholas Cohen Emergency Provider Dr. Nicci Lemus Primary Care Provider Dr. Karon Nunes Admit Provider Dr. Karon Nunes Other Provider Dr. Darinel Carlos Other Provider Dr. John Johnston Attending Provider Dr. John Johnston Other Provider Dr. Pravin Cruz Other Provider CAMACHOELIZABETH LEATHER TACKER-C, DUNCAN Hilton Unavailable Unav ailable WHITE, MARCOS Primary Care Unavailable WHITE, MARCOS Attending Unavailable KORNHAUS, R NICCI Consulting Unavailable WHTIE, MARCOS Admitting Unavailable PROVIDER, UNKNOWN Consulting Unavailable PROVIDER, UNKNOWN Consulting Unavailable PROVIDER, UNKNOWN Consulting Unavailable WHITE, MARCOS Primary Care Unavailable WHITE, MARCOS Attending Unavailable WHITE, MARCOS Admitting Unavailable KORNHAUS, R NICCI Consulting Unavailable PROVIDER, UNKNOWN Consulting Unavailable PROVIDER, UNKNOWN Consulting Unavailable PROVIDER, UNKNOWN Consulting Unavailable WHITE, MARCOS Primary Care Unavailable WHITE, MARCOS Attending Unavailable WHITE, MARCOS Admitting Unavailable KORNHAUS, R NICCI Consulting Unavailable PROVIDER, UNKNOWN Consulting Unavailable PROVIDER, UNKNOWN Consulting Unavailable PROVIDER, UNKNOWN Consulting Unavailable Dr. Nicci Lemus MD Primary Care Provider Genevieve Wu MD Attending Provider Unavaila cecilia Wu MD, Dr. Vallejo Primary Care Provider Barbara Benavidez Attending Provider Dr. Genevieve Wu MD Attending Provider Dr. Nicci Lemus MD Referring Provider Dr. Vish Cook MD Attending Provider Dr. Genevieve Wu MD Referring Provider Dr. Willian Palm DO Attending Provider [phone] Dr. Yunior Desai MD Attending Provider Genevieve Nguyen Attending Unavailabl e Genevieve Nguyen Referring Unavailrogerio e Genevieve Wu Primary Care Unavailable Jayjay, Nicci Primary Care Unavailable Genevieve Nguyen Attending Unavailabl e Jayjay, Nicci Primary Care Unavailable Genevieve Nguyen Attending Unavailabl e Sharon Crouch Attending Unavailable Oleghe, Efewongbe Primary Care Unavailable Oleghe OLS, Efewongbe Attending Unavailabl e Oleghe, Efewongbe Primary Care Unavailable Willian Palm Attending Unavailable Willian Palm Referring Unavailable Oleghe, Efewongbe Primary Care Unavailable Oleghe OLS, Efewongbe Attending Unavailabl e Oleghe, Efewongbe Primary Care Unavailable Villagran, Achintya Admitting Unavailable Villagran, Achintya Consulting Unavailable [facility], Nicci Primary Care Unavailable Pravin Cruz Attending Unavailable John Johnston Consulting Unavailable [facility], Nicci Primary Care Unavailable Oleghe OLS, Efewongbe Attending Unavailabl e Oleghe, Efewongbe Referring Unavailable Oleghe, Efewongbe Primary Care Unavailable Yunior Desai Attending Unavailable Willian Palm Attending Unavailable Oleghe, Efewongbe Referring Unavailable Oleghe, Efewongbe Primary Care Unavailable Matthew PACHECO, Attending Unavailable Oleghe, Efewongbe Primary Care Unavailable Oleghe, Efewongbe Attending Unavailable Oleghe, Efewongbe Primary Care Unavailable Barbara Castro NP Attending Unavailable Oleghe, Efewongbe Primary Care Unavailable Oleghe, Efewongbe Attending Unavailable Oleghe, Efewongbe Primary Care Unavailable Villagran, Achintya Admitting Unavailable Villagran, Achintya Consulting Unavailable Kornhaus, Nicci Primary Care Unavailable John Johnston Attending Unavailable Rj Mcdonald Consulting Unavailable Bernardo Ruiz Consulting Unavailable Markus Weldon Consulting Unavailable Willian Palm Consulting Unavailable Emiliano Redmond Consulting Unavailable Guillermo Huggins Consulting Unavailable Terrance Olmos Consulting Unavailable Padmini East Consulting Unavailab Adrien Ortiz Consulting Unavailable Yefri Kwok Consulting Unavailable Luis Angel Arias Consulting Unavailable Blanca Fonseca Consulting Unavailable AlDoretha harper Consulting Unavailable Alivia, Channing Consulting Unavailable Daniele Tavera Consulting Unavailable CalistaJunaid posey Consulting Unavailable Johanna Perrykhdeep Consulting Unavailable Mercedes Whiting Consulting Unavailable Lux Fletcher Consulting Unavailable Poli, Jassi Consulting Unavailable Bladimir Treviño Consulting Unavailable John Johnston Consulting Unavailable Oleghe, Efewongbe Primary Care Unavailable Yunior Desai Attending Unavailable Yunior Desai Referring Unavailable Kornhaus, Nicci Primary Care Unavailable Blake Juarez Attending Unavailable Kornhaus, Nicci Primary Care Unavailable Chevy Lee Attending Unavailable Hilaria Villagran Referring Unavailable Oleghe Genevieve CUBA Attending Unavailrogerio e Oleghe, Efewongbe Primary Care Unavailable Willian Palm Attending Unavailable John Johnston Referring Unavailable Oleghe, Efewongbe Primary Care Unavailable Oleghe, Efewongbe Attending Unavailable Oleghe, Efewongbe Referring Unavailable Barbara Castro NP Attending Unavailable Oleghe, Efewongbe Primary Care Unavailable Vish Cook Attending Unavailable Shyannenhaus, Nicci Primary Care Unavailable Kornhaus, Nicci Referring Unavailable Barbara Castro NP Attending Unavailable Oleghe, Efewongbe Primary Care Unavailable Vish Cook Attending Unavailable Kornhaus, Nicci Referring Unavailable Oleghe, Efewongbe Primary Care Unavailable Hilaria Villagran Attending Unavailable Pravin Cruz Attending Unavailable Pravin Cruz Consulting Unavailable Willian Palm Attending Unavailable Willian Palm Referring Unavailable Oleghe, Efewongbe Primary Care Unavailable Medications Current Medications Medication Drug Class(es) Dates Sig (Normalized) Sig (Original) acetaminophen 325 mg oral tablet (20 sources) Start: 07-19-2024 take 2 tablets by mouth every eight hours as needed Acetaminophen 500 mg tablet Active 1000 mg PO EVERY 8 HOURS NEEDED July 19, 2024 1:00am Do not exceed 3000mg in 24 hrs Start: 04-23-2023 End: 07-19-2024 take 2 tablets by mouth every four hours as needed for pain Acetaminophen 325 mg tablet Active 650 mg PO EVERY 4 HOURS NEEDED as needed for Fever, pain -03/24July 19, 2024 11:04am Do not exceed 3000mg in 24 hrs Start: 04-23-2023 take 650 mg by mouth every four hours as needed Acetaminophen Active 650 MG PO EVERY 4 HOURS NEEDED April 23, 2023 12:00am Start: 07-10-2022 End: 04-23-2023 take 2 capsules by mouth every four hours as needed for pain Acetaminophen (Tylenol) 325 mg capsule Discontinued 650 mg PO Q4H as needed for pain July 10, 2022 1:00am April 23, 2023 12:43pm Start: 01-15-2018 End: 07-10-2022 take 2 tablets by mouth every eight hours Acetaminophen 500 MG tablet Discontinued 1000 mg PO EVERY 8 HOURS December 13, 2021 4:21pm July 10, 2022 12:25pm Start: 01-15-2018 End: 07-10-2022 take 1000 mg by mouth every eight hours Acetaminophen Discontinued 1000 MG PO EVERY 8 HOURS December 13, 2021 3:21pm July 10, 2022 11:25am take 2 capsules by m outh three times daily Tylenol 500 MG Oral Capsule ; 2 three times daily (500 MG) alendronic acid 70 mg oral tablet (20 sources) Bisphosphonate Start: 10-05-2024 Alendronate 70 mg tablet Active mg PO October 05, 2024 12:00am Start: 03-03-2018 End: 03-06-2021 take 1 tablet by mouth every week Alendronate (Fosamax) 70 mg tablet Discontinued 70 mg PO EVERY WEEK May 24, 2020 6:09pm March 06, 2021 4:11pm calcium carbonate 1500 mg oral tablet (1 source) Start: 07-19-2024 take 1 tablet by mouth twice daily Calcium Carbonate 600 mg calcium (1,500 mg) tablet Active 600 mg PO TWICE A DAY July 19, 2024 1:00am cholecalciferol 0.025 mg oral tablet (20 sources) Vitamin D Start: 07-19-2024 take 1 tablet by mouth once daily Cholecalciferol (Vitamin D3) (Vitamin D3) 25 mcg (1,000 unit) tablet Active 50 ug PO DAILY July 19, 2024 11:13am Start: 06-01-2023 End: 07-19-2024 take 1 tablet by mouth once daily Cholecalciferol (Vitamin D3) (Vitamin D3) 25 mcg (1,000 unit) tablet Discontinued 25 ug PO DAILY January 20, 2024 4:25pm July 19, 2024 11:14am Start: 02-15-2022 End: 04-16-2023 take 1 tablet by mouth once daily Cholecalciferol (Vitamin D3) (Vitamin D3) 25 mcg (1,000 unit) tablet Discontinued 25 ug PO DAILY July 14, 2022 5:50pm November 18, 2022 8:56pm Start: 12-29-2017 End: 11-16-2018 take 1 capsule by mouth once daily Cholecalciferol (Vitamin D3) 5,000 UNIT capsule Discontinued 5000 U PO DAILY January 15, 2018 1:25pm November 16, 2018 11:32am Comment on above: OTC docusate sodium 50 mg / sennosides, pen[facility] 8.6 mg oral tablet (20 sources) Start: 04-23-2023 Sennosides-Doc usate Sodium (Stool Softener-Stimulant Laxat) 8.6-50 mg Tablet Active 2 {tbl} PO TWICE DAILY NEEDED as needed for Constipation 0 April 23, 2023 1:00am Start: 01-15-2018 End: 12-20-2021 Sennosides-Docusate Sodium 8 .6-50 mg tablet Discontinued 2 {tbl} PO TWICE A DAY as needed for Constipation April 27, 2019 3:57pm December 20, 2021 1:06pm Start: 01-15-2018 End: 12-20-2021 take 2 tablets by mouth twice daily Sennosides-Docusate Sodium Discontinued 2 TABLET PO TWICE A DAY April 27, 2019 2:57pm December 20, 2021 12:06pm ipratropium bromide 0.021 mg/actuat metered dose nasal spray (20 sources) Anticholinergic Start: 07-19-2024 Ipratropium Br omide 21 mcg (0.03 %) spray,non-aerosol Active 2 NMA INTRANASAL daily July 19, 2024 1:00am administer into each nostril Start: 10-29-2023 take 2 spray(s) nasa l route twice daily ipratropium bromide 21 mcg (0.03 %) nasal spray ; 2 (two) spray each nostril bid for 30 days Quantity: 1 {Each} Refills: 1 Ordered: 29-Oct-2023 MD Tucker LEMUS Start: 29-Oct-2023 Start: 05-14-2023 take 2 spray(s) nasa l route twice daily ipratropium bromide 21 mcg (0.03 %) nasal spray ; 2 (two) spray each nostril bid for 30 days Quantity: 1 {Each} Refills: 1 Ordered: 14-May-2023 MD Tucker LEMUS Start: 14-May-2023 Start: 04-07-2022 End: 11-13-2022 ipratropium bromide 42 mcg ( 0.06 %) nasal spray ; 2 [place] up to three times daily as needed prn allergic rhinitis for 30 days Quantity: 15 {Milliliter} Refills: 11 Ordered: 13-Nov-2022 CAMDEN Thurman Start: 07-Apr-2022 End: 13-Nov-2022 Status: Inactive Comments: Medication taken as needed. Start: 05-08-2021 End: 07-10-2022 Ipratropium Lott 42 mcg ( 0.06 %) spray,non-aerosol Discontinued 2 NMA INTRANASAL THREE TIMES A DAY as needed for allergy symptoms May 08, 2021 1:00am July 10, 2022 12:25pm administer into each nostril Start: 05-08-2021 End: 07-10-2022 take 1 spray(s) nasal route three times daily Ipratropium Lott Discontinued 2 SPRAY INTRANASAL THREE TIMES A DAY May 08, 2021 12:00am July 10, 2022 11:25am administer into each nostril Comment on above: Medication taken as needed. lidocaine 0.05 mg/mg medicated patch (20 sources) Antiarrhythmic, Amide Local Anesthetic Start: 07-19-2024 Lidocaine 5 % adhesive patch,medicated Active 1 NMA TOPICAL daily July 19, 2024 1:00am leave on most painful area for up to 12 hrs Start: 04-07-2022 End: 11-13-2022 apply 1 dose topically once daily as needed Lidoderm 5 % topical patch ; 1 Patch daily as needed for pain; remove daily for 30 days Quantity: 30 {Patch} Refills: 11 Ordered: 13-Nov-2022 CAMDEN Thurman Start: 07-Apr-2022 End: 13-Nov-2022 Status: Inactive Comments: Medication taken as needed. Patient will call when prescription refill is needed. Start: 12-13-2021 End: 07-10-2022 Lidocaine 5 % adhesive patch,medicated Discontinued 1 NMA TOPICAL DAILY December 13, 2021 4:21pm July 10, 2022 12:25pm leave on most painful area for up to 12 hrs Start: 05-08-2021 End: 12-13-2021 Lidocaine 5 % adhesive patch,medicated Discontinued 1 NMA TOPICAL DAILY May 08, 2021 1:00am December 13, 2021 4:21pm leave on most painful area for up to 12 hrs Start: 05-08-2021 End: 07-10-2022 apply 1 dose topically once daily Lidocaine Discontinued 1 PATCH TOPICAL DAILY December 13, 2021 3:21pm July 10, 2022 11:25am leave on most painful area for up to 12 hrs Comment on above: Medication taken as needed. Patient will call when prescription refill is needed. loperamide hydrochloride 2 mg oral tablet (20 sources) Opioid Agonist Loperamide HCl 2 MG Oral Tablet ; 1 as needed up to 6 per day prn diarrhea (2 MG) Comments: Medication taken as needed. Comment on above: Medication taken as needed. nitroglycerin 0.4 mg sublingual tablet (20 sources) Nitrate Vasodilator Start: 06-30-19 Nitrostat 0.4 mg sublingual tablet ; 1 (one) tablet sublingual for chest pain. If pain not resolved in 5 min, may repeat If not resolved in another 5 min, may take the third tablet If not resolved in 5 more minutes, proceed to the ER immediately for further evaluation. for 30 days Quantity: 25 {Tablet} Refills: 11 Ordered: 30-Jun-2022 CAMDEN Thurman Start: 30-Jun-2022 Nut Tx, Lact-Reduced, Iron (Boost Vhc) 0.09-2.25 gram-kcal/mL liquid (1 source) Start: 07-19-19 Nut Tx, Lact-Reduced, Iron (Boost Vhc) 0.09-2.25 gram-kcal/mL liquid Active 120 mL PO THREE TIMES A DAY July 19, 2024 1:00am pramipexole dihydrochloride 0.5 mg oral tablet (20 sources) Nonergot Dopamine Agonist Start: 07-10-19 End: 10-06-19 take 1 tablet by mouth twice daily Pramipexole 0.5 mg tablet Active 0.5 mg PO TWICE A DAY October 05, 2024 9:08am Start: 02-23-2019 End: 12-13-2021 take 1 tablet by mouth at bedtime Pramipexole 0.5 mg tablet Discontinued 0.5 mg PO AT BEDTIME 90 September 26, 2021 4:23pm December 13, 2021 4:21pm Start: 02-23-2019 End: 07-21-2023 take 1 tablet by mouth three times daily Pramipexole 0.5 mg tablet Discontinued 0.5 mg PO THREE TIMES A DAY December 13, 2021 4:21pm July 10, 2022 6:45pm Start: 01-15-2018 End: 11-16-2018 take 1 tablet by mouth once daily in the evening Pramipexole 0.5 mg tablet Discontinued 0.5 mg PO EVERY EVENING February 23, 2018 8:26am November 16, 2018 11:31am Comment on above: Patient will call en prescription refill is needed. propranolol hydrochloride 20 mg oral tablet (20 sources) beta-Adrenergic Mauricio Start: 07-19-2024 Propranolol 20 mg tablet Active 20 mg PO .COMPLEX July 19, 2024 11:05am 20 mg orally 2 tablets in the am, 1 tablet at noon, and 1 tablet at 5pm; Hold for pulse less than 55 Start: 02-23-2024 End: 07-19-2024 take 2 tablets by mouth once daily in the morning, then take 1 tablet by mouth once daily, then take 1 tablet by mouth once, then take 5 tablets by mouth in the evening Propranolol 20 mg tablet Discontinued 20 mg PO .COMPLEX 120 February 23, 2024 12:00am July 19, 2024 11:14am Take 2 tablets orally every morning, 1 tablet daily at noon and 1 tablet q5 p.m. Start: 01-20-2024 End: 02-23-2024 take 1 tablet by mouth three times daily Propranolol 40 mg tablet Discontinued 40 mg PO THREE TIMES A DAY January 20, 2024 12:00am February 23, 2024 4:17pm Package patient's medications in blister packs Start: 06-01-2023 End: 01-20-2024 Propranolol 20 mg tablet Discontinued 20 mg PO .COMPLEX 120 August 17, 2023 5:46pm January 20, 2024 4:23pm Take 2 tablets orally qAM, 1 tablet qNoon and 1 tablet q5PM. Package patient's medications in blister packs. Start: 04-23-2023 End: 06-01-2023 Propranolol 10 mg Tablet Discontinued 20 mg PO 1200,1700 60 April 23, 2023 1:00am June 01, 2023 6:07pm Start: 04-23-2023 End: 06-01-2023 Propranolol 40 mg Tablet Discontinued 40 mg PO 0600 30 April 23, 2023 1:00am June 01, 2023 6:07pm Start: 04-23-2023 End: 06-01-2023 Propranolol Discontinued 20 MG PO 1200,1700 60 April 23, 2023 12:00am June 01, 2023 5:07pm Start: 03-17-2023 End: 04-23-2023 Propranolol 20 mg tablet Discontinued 20 mg PO .COMPLEX 120 March 17, 2023 12:00am April 23, 2023 12:39pm Take 2 tablets orally qAM, 1 tablet qNoon and 1 tablet q5PM. Package patient's medications in blister packs. Start: 11-18-2022 End: 03-17-2023 take 1 capsule by mouth once daily Propranolol 60 mg capsule,extended release 24 hr Discontinued 60 mg PO DAILY 30 November 18, 2022 12:00am March 17, 2023 9:01am Start: 03-06-2021 End: 11-18-2022 take 1 tablet by mouth three times daily Propranolol 20 mg tablet Discontinued 20 mg PO THREE TIMES A DAY 90 July 14, 2022 5:46pm November 18, 2022 11:38am Start: 11-24-2019 End: 03-06-2021 take 1 tablet by mouth twice daily Propranolol 20 mg tablet Discontinued 20 mg PO TWICE A DAY 180 November 16, 2020 7:58am March 06, 2021 4:20pm Start: 03-03-2018 End: 10-14-2018 take 1 tablet by mouth twice daily Propranolol 40 mg tablet Discontinued 40 mg PO TWICE A DAY 60 September 11, 2018 10:44am October 14, 2018 9:50am Comment on above: Patient will call en prescription refill is needed. traMADol hydrochloride 50 mg oral tablet (20 sources) Opioid Agonist Start: End: take 1 tablet by mouth twice daily Tramadol 50 mg tablet Active 50 mg PO TWICE A DAY 60 September 27, 2024 11:18am Start: 06-27-2024 End: 10-24-2024 take 1 tablet by mouth once daily as needed for pain Tramadol 50 mg tablet Active 50 mg PO daily as needed for pain October 24, 2024 12:51pm Start: 04-23-2022 End: 07-22-2022 take 0.5 tablet by mouth twice daily as needed for pain traMADoL 50 mg oral tablet ; 1/2 Tablet bid prn severe pain for 90 days Quantity: 90 {Tablet} Refills: 0 Ordered: 23-Apr-2022 Start: 23-Apr-2022 End: 22-Jul-2022 Status: Inactive Comments: This prescription expires 89 days from date of issue. Start: 02-11-2022 End: 07-12-2024 take 1 tablet by mouth every eight hours as needed for pain Tramadol 50 mg tablet Discontinued 50 mg PO Q8H as needed for Pain July 07, 2024 1:03pm July 26, 2024 1:00am July 12, 2024 1:25pm Moved to [facility] 10. Start: 02-11-2022 take 50 mg by mouth twice poonam y Tramadol Active 50 MG PO TWICE A DAY February 11, 2022 12:00am Comment on above: This prescription ex whit 89 days from date of issue. Completed/Discontinued Medications Medication Drug Class(es) Dates Sig (Normalized) Sig (Original) acetaminophen 325 mg / HYDROcodone bitartrate 5 mg oral tablet (20 sources) Opioid Agonist Start: 03-16-2019 End: 04-27-2019 Hydrocodone-Acetami nophen 5-325 mg tablet Discontinued 1 {tbl} PO EVERY 6 HOURS as needed for pain March 23, 2019 12:00am April 27, 2019 3:56pm Start: 03-16-2019 End: 04-27-2019 take 1 tablet by mouth every six hours Hydrocodone-Acetaminophen Discontinued 1 TABLET PO EVERY 6 HOURS March 22, 2019 11:00pm April 27, 2019 2:56pm Start: 01-02-2018 End: 01-15-2018 Hydrocodone-Acetaminophen 1 TABLET tablet Discontinued 1 {tbl} PO EVERY 6 HOURS NEEDED as needed for Mild-moderate pain (scale 1-5) 01 11January 02, 2018 12:00am January 15, 2018 1:24pm Start: 01-02-2018 End: 01-15-2018 take 1 tablet by mouth every six hours as needed Hydrocodone-Acetaminophen Discontinued 1 TABLET PO EVERY 6 HOURS NEEDED 01 11January 01, 2018 11:00pm January 15, 2018 12:24pm amoxicillin 875 mg / clavulanate 125 mg oral tablet (3 sources) Penicillin-class Antibacterial Start: 08-17-2023 End: 01-20-2024 Amoxicillin-Pot Clavulanate 875-125 mg tablet Discontinued 1 {tbl} PO TWICE A DAY August 17, 2023 1:00am January 20, 2024 4:21pm Start: 08-17-2023 take 1 tablet by hao twice daily Amoxicillin-Pot Clavulanate Active 1 TABLET PO TWICE A DAY August 17, 2023 12:00am aspirin 325 mg oral tablet (10 sources) Platelet Aggregation Inhibitor, Nonsteroidal Anti-inflammatory Drug Start: 03-06-2021 End: 09-26-2021 take 1 tablet by mouth once daily Aspirin 325 mg tablet Discontinued 325 mg PO DAILY March 06, 2021 12:00am September 26, 2021 4:09pm azelastine hydrochloride 0.137 mg/actuat metered dose nasal spray (20 sources) Histamine-1 Receptor Antagonist Start: 04-07-2022 End: 11-13-2022 azelastine 137 mcg (0.1 %) nasal spray aerosol ; 2 sprays [place] every 12 hours as needed for rhinitis for 30 days Quantity: 30 {Milliliter} Refills: 11 Ordered: 13-Nov-2022 CAMDEN Thurman Start: 07-Apr-2022 End: 13-Nov-2022 Status: Inactive Comments: Medication taken as needed. Facility will call when needed Start: 11-24-2019 End: 07-10-2022 Azelastine 137 mcg (0.1 %) aerosol,spray Discontinued 1 NMA INTRANASAL TWICE A DAY December 13, 2021 4:21pm July 10, 2022 12:25pm administer into each nostril Start: 11-24-2019 End: 07-10-2022 take 1 spray(s) nasal route twice daily Azelastine Discontinued 1 SPRAY INTRANASAL TWICE A DAY May 24, 2020 5:09pm December 13, 2021 3:21pm administer into each nostril Comment on above: Medication taken as needed. Facility will call when needed bisacodyl 5 mg delayed release oral tablet (10 sources) Stimulant Laxative Start: 01-16-20 End: 08-24-19 take 2 tablets by mouth once daily as needed for constipation Bisacodyl 5 MG tablet Discontinued 10 mg PO DAILY as needed for Constipation January 15, 2018 12:00am August 24, 2019 4:03pm Start: 01-15-2018 End: 08-24-2019 take 10 mg by mouth once daily Bisacodyl Discontinued 10 MG PO DAILY January 14, 2018 11:00pm August 24, 2019 3:03pm calcium citrate 1190 mg / cholecalciferol 0.005 mg oral tablet (20 sources) Vitamin D Start: 03-23-2019 End: 07-19-2024 Calcium Citrate-Vitamin D3 250 mg-5 mcg (200 unit) tablet Discontinued 1 {tbl} PO THREE TIMES A DAY July 14, 2022 5:51pm November 18, 2022 8:56pm cephalexin 500 mg oral capsule (1 source) Cephalosporin Antibacterial Start: 05-30-2024 End: 06-07-2024 take 1 capsule by mouth every six hours Cephalexin 500 mg capsule Discontinued 500 mg PO EVERY 6 HOURS May 30, 2024 1:00am June 07, 2024 3:07pm ciprofloxacin 500 mg oral tablet (17 sources) Quinolone Antimicrobial Start: 12-13-2021 End: 12-20-2021 take 1 tablet by mouth twice daily Ciprofloxacin Hcl (Cipro) 500 mg tablet Discontinued 500 mg PO TWICE A DAY December 13, 2021 4:21pm December 20, 2021 1:05pm clonazePAM 0.5 mg oral tablet (20 sources) Benzodiazepine Start: 08-24-2019 End: 03-06-2021 take 1 tablet by mouth twice daily Clonazepam 0.5 mg tablet Discontinued 0.5 mg PO TWICE A DAY 60 August 24, 2019 4:20pm March 06, 2021 4:11pm Start: 06-21-2019 End: 08-24-2019 take 1 tablet by mouth twice daily Clonazepam 1 mg tablet Discontinued 1 mg PO TWICE A DAY 60 June 21, 2019 4:36pm August 24, 2019 4:20pm Start: 04-27-2019 End: 06-21-2019 take 1 tablet by mouth twice daily Clonazepam (Klonopin) 0.5 mg tablet Discontinued 0.5 mg PO TWICE A DAY 60 June 21, 2019 1:45pm June 21, 2019 4:37pm docusate sodium 100 mg oral capsule (10 sources) Start: 01-02-2018 End: 01-15-2018 take 1 capsule by mouth twice daily as needed for constipation Docusate Sodium (Dok) 100 MG capsule Discontinued 100 mg PO TWICE DAILY NEEDED as needed for Constipation January 02, 2018 12:00am January 15, 2018 1:24pm donepezil hydrochloride 10 mg oral tablet (20 sources) Start: 04-07-2022 End: 01-20-2024 take 1 tablet by mouth at bedtime Donepezil 10 mg tablet Discontinued 10 mg PO AT BEDTIME June 01, 2023 5:56pm July 21, 2023 10:04am Start: 02-15-2022 End: 07-10-2022 take 2 tablets by mouth at bedtime Donepezil 5 mg tablet Discontinued 10 mg PO AT BEDTIME February 15, 2022 2:03pm July 10, 2022 1:20pm Start: 02-15-2022 End: 07-10-2022 take 10 mg by mouth at bedtime Donepezil Discontinued 10 MG PO AT BEDTIME February 15, 2022 1:03pm July 10, 2022 12:20pm Start: 12-26-2021 End: 02-15-2022 take 1 tablet by mouth at bedtime Donepezil 5 mg Tablet Discontinued 5 mg PO AT BEDTIME December 26, 2021 12:00am February 15, 2022 2:03pm Comment on above: Patient will call en prescription refill is needed. DULoxetine 20 mg delayed release oral capsule (20 sources) Serotonin and Norepinephrine Reuptake Inhibitor Start: 05-08-20 End: 09-27-19 take 1 capsule by mouth once daily Duloxetine 20 mg capsule,delayed release(DR/EC) Discontinued 20 mg PO DAILY August 13, 2021 9:15am September 26, 2021 4:06pm Start: 03-06-2021 End: 05-08-2021 take 1 capsule by mouth once daily Duloxetine 30 mg capsule,delayed release(DR/EC) Discontinued 30 mg PO DAILY March 06, 2021 12:00am May 08, 2021 4:29pm ferrous sulfate 325 mg oral tablet (20 sources) Start: 12-29-2017 End: 01-15-2018 take 1 tablet by mouth twice daily at mealtime Ferrous Sulfate 325 MG tablet Discontinued 325 mg PO TWICE DAILY WITH MEALS January 02, 2018 2:39pm January 15, 2018 1:24pm fluticasone propionate 0.05 mg/actuat metered dose nasal spray (20 sources) Corticosteroid Start: 10-14-2018 End: 02-15-2019 take 50 ug nasal route once daily Fluticasone Propionate (Flonase Allergy Relief) 50 mcg/actuation spray,suspension Discontinued 1 NMA INTRANASAL DAILY 9.9 October 14, 2018 12:00am February 15, 2019 2:58pm administer into each nostril Start: 10-14-2018 End: 11-13-2022 take 1 spray(s) nasal route once daily Fluticasone Propionate 50 mcg/actuation spray,suspension Discontinued 0 .ROUTE .COMPLEX June 13, 2019 12:39pm December 13, 2021 4:21pm USE 1 SPRAY IN EACH NOSTRIL ONCE DAILY Comment on above: Medication taken as needed. Patient will call when prescription refill is needed. Food Supplemt, Lactose-Reduced (Ensure Plus High Protein) 0.08 gram-1.5 kcal/mL Liquid (5 sources) Start: 04-23-2023 End: 06-07-2024 Food Supplemt, Lactose-Reduced (Ensure Plus High Protein) 0.08 gram-1.5 kcal/mL Liquid Discontinued 120 mL PO 4 TIMES DAILY 0 April 23, 2023 1:00am June 07, 2024 3:07pm Start: 04-23-2023 Food Supplemt, Lactose-Reduced (Ensure Plus High Protein) 0.08 gram-1.5 kcal/mL Liquid Active 120 ML PO 4 TIMES DAILY 0 April 23, 2023 12:00am ibuprofen 600 mg oral tablet (20 sources) Nonsteroidal Anti-inflammatory Drug Start: 05-30-2021 End: 09-26-2021 take 1 tablet by mouth every six hours as needed for pain Ibuprofen 600 mg tablet Discontinued 600 mg PO EVERY 6 HOURS as needed for pain May 30, 2021 4:05pm September 26, 2021 4:09pm Start: 07-05-2020 End: 05-08-2021 take 1 tablet by mouth every six hours as needed for pain Ibuprofen 600 mg tablet Discontinued 600 mg PO EVERY 6 HOURS as needed for pain May 08, 2021 12:43pm May 08, 2021 4:42pm take 1 tablet by hao th three times daily Ibuprofen 200 200 MG Oral Tablet ; 1 three times daily (200 MG) levoFLOXacin 250 mg oral tablet (1 source) Quinolone Antimicrobial Start: 06-14-2024 End: 07-19-2024 take 1 tablet by mouth once daily Levofloxacin 250 mg Tablet Discontinued 250 mg PO DAILY@0600 0 4 June 14, 2024 1:00am July 19, 2024 11:13am magnesium hydroxide 80 mg/ml oral suspension (20 sources) Start: 01-02-2018 End: 01-15-2018 take 1 mL by mouth once daily as needed for constipation Magnesium Hydroxide 30 ML Udc Discontinued 30 mL PO DAILY NEEDED as needed for Constipation January 02, 2018 12:00am January 15, 2018 1:24pm Start: 01-02-2018 End: 01-15-2018 take 1 mL by mouth once daily as needed Magnesium Hydroxide Discontinued 30 ML PO DAILY NEEDED January 01, 2018 11:00pm January 15, 2018 12:24pm Comment on above: Medication taken as needed. meloxicam 7.5 mg oral tablet (20 sources) Nonsteroidal Anti-inflammatory Drug Start: 05-08-20 End: 09-27-19 take 7.5-15 mg by mouth once daily Meloxicam (Mobic) 7.5 mg tablet Discontinued 7.5 - 15 mg PO DAILY 60 August 13, 2021 9:16am September 26, 2021 4:09pm memantine hydrochloride 10 mg oral tablet (20 sources) D-sozwwe-P-aspartate Receptor Antagonist Start: 04-07-20 End: 01-20-20 take 1 tablet by mouth twice daily Memantine 10 mg tablet Discontinued 10 mg PO TWICE A DAY 60 June 01, 2023 5:57pm July 21, 2023 10:04am Start: 02-11-2022 End: 07-10-2022 take 1 tablet by mouth once daily in the evening, then take 1 tablet by mouth twice daily Memantine (Namenda) 10 mg tablet Discontinued 10 mg PO TWICE A DAY February 15, 2022 2:03pm July 10, 2022 6:45pm Beginning on 02/20/22, increase memantine 10mg to 1/2 tablet PO qAM and 1 tablet qPM for one week then 10mg BID thereafter. Comment on above: Patient will call en prescription refill is needed. Menthol / Zinc Oxide (5 sources) Start: 04-23-2023 End: 07-19-2024 Menthol-Zinc Oxide (Calmoseptine) 0.44-20.6 % Ointment Discontinued 1 NMA TOPICAL 4 TIMES DAILY April 23, 2023 1:00am July 19, 2024 11:14am Please contact the information source for Protocol details. Start: 04-23-2023 Menthol-Zinc O xide (Calmoseptine) 0.44-20.6 % Ointment Active 1 APPLIC TOPICAL 4 TIMES DAILY April 23, 2023 12:00am mirtazapine 7.5 mg oral tablet (20 sources) Start: 04-23-2023 End: 06-01-2023 take 1 tablet by mouth at bedtime Mirtazapine 15 mg Tablet Discontinued 15 mg PO AT BEDTIME April 23, 2023 1:00am June 01, 2023 6:06pm Start: 04-07-2022 End: 06-07-2024 take 1 tablet by mouth at bedtime Mirtazapine 7.5 mg tablet Discontinued 7.5 mg PO AT BEDTIME June 01, 2023 6:06pm July 21, 2023 10:04am Start: 12-20-2021 End: 07-10-2022 take 7.5 mg by mouth at bedtime Mirtazapine 15 mg Tabl et Discontinued 7.5 mg PO AT BEDTIME December 20, 2021 12:00am July 10, 2022 1:17pm Start: 12-20-2021 End: 07-10-2022 take 7.5 mg by mouth at bedtime Mirtazapine Discontinu ed 7.5 MG PO AT BEDTIME December 19, 2021 11:00pm July 10, 2022 12:17pm Comment on above: Patient will call en prescription refill is needed. nitrofurantoin, macrocrystals 25 mg / nitrofurantoin, monohydrate 75 mg oral capsule (5 sources) Nitrofuran Antibacterial Start: End: take 1 capsule by mouth every twelve hours at mealtime Nitrofurantoin Monohyd/M-Cryst (Macrobid) 100 mg capsule Discontinued 100 mg PO Q12H 14 April 05, 2023 12:00am April 11, 2023 12:00am April 12, 2023 12:04am must administer with a meal/food oxyCODONE hydrochloride 5 mg oral tablet (20 sources) Opioid Agonist Start: 018 End: take 1 tablet by mouth every six hours as needed for pain Oxycodone 5 mg tablet Discontinued 5 mg PO EVERY 6 HOURS as needed for Moderate Pain (4-5/10) February 23, 2018 November 16, 2018 11:30am Start: 01-15-2018 End: 02-23-2018 take 1 tablet by mouth every four hours as needed for pain Oxycodone 5 MG tablet Discontinued 5 mg PO EVERY 4 HOURS NEEDED as needed for Moderate Pain (4-5/10) January 15, 2018 12:00am February 23, 2018 8:27am polyethylene glycol 3350 00775 mg powder for oral solution (10 sources) Osmotic Laxative Start: 01-15-2018 End: 08-24-2019 take 17 g by mouth once daily Polyethylene Glycol 3350 17 GM packet Discontinued 17 g PO DAILY January 15, 2018 12:00am August 24, 2019 4:03pm polysaccharide iron complex 150 mg oral capsule (10 sources) Start: 01-15-2018 End: 11-16-2018 take 1 capsule by mouth twice daily at mealtime Polysaccharide Iron Complex 150 MG capsule Discontinued 150 mg PO TWICE DAILY WITH MEALS 60 January 15, 2018 12:00am November 16, 2018 11:32am potassium chloride 1.33 meq/ml oral solution (20 sources) Start: 12-20-2021 End: 07-10-2022 take 20 mEq by mouth once daily at mealtime Potassium Chloride 20 mEq/15 mL Liquid Discontinued 20 meq PO DAILY WITH MEALS 450 December 20, 2021 12:00am July 10, 2022 12:26pm Comment on above: Patient will call en prescription refill is needed. potassium phosphate 155 mg / sodium phosphate, dibasic 852 mg / sodium phosphate, monobasic 130 mg oral tablet (17 sources) Start: 12-13-2021 End: 12-20-2021 Sod Phos Di, [place]-K Phos [place] (P-Mvwo-Tnxxzro) 250 mg tablet Discontinued 2 {tbl} PO THREE TIMES A DAY December 13, 2021 4:21pm December 20, 2021 1:05pm Start: 12-13-2021 End: 12-20-2021 take 2 tablets by mouth three times daily Sod Phos Di, [place]-K Phos [place] (X-Hvbs-Dvupxen) 250 mg tablet Discontinued 2 TABLET PO THREE TIMES A DAY December 13, 2021 3:21pm December 20, 2021 12:05pm primidone 50 mg oral tablet (20 sources) Anti-epileptic Agent Start: 07-10-2022 End: 11-18-2022 take 1 tablet by mouth once daily in the morning Primidone 50 mg tablet Discontinued 25 mg PO EVERY MORNING July 14, 2022 5:49pm November 18, 2022 11:37am Start: 07-10-2022 End: 11-18-2022 take 25 mg by mouth once daily in the morning Primidone Discontinued 25 MG PO EVERY MORNING July 14, 2022 4:49pm November 18, 2022 10:37am Start: 04-27-2019 End: 08-24-2019 take 1 tablet by mouth three times daily Primidone 50 mg tablet Discontinued 50 mg PO THREE TIMES A DAY April 27, 2019 3:58pm August 24, 2019 4:02pm Start: 10-14-2018 End: 11-16-2018 take 1 tablet by mouth at bedtime Primidone 50 mg tablet Discontinued 50 mg PO AT BEDTIME October 14, 2018 10:12am November 16, 2018 11:46am Start: 10-14-2018 End: 04-27-2019 take 1 tablet by mouth twice daily Primidone 50 mg tablet Discontinued 50 mg PO TWICE A DAY 60 November 16, 2018 11:43am April 27, 2019 3:59pm primidone 50 mg tablet ; 1/2 daily (50 mg) Status: Inactive Comments: Neuro Comment on above: Neuro promethazine hydrochloride 25 mg oral tablet (10 sources) Phenothiazine Start: 01-16-20 18 End: 11-17-19 19 take 1 tablet by mouth every six hours as needed for nausea Promethazine 25 MG tablet Discontinued 25 mg PO EVERY 6 HOURS NEEDED as needed for Nausea/Vomiting January 15, 2018 12:00am November 16, 2018 11:31am propylene glycol 6 mg/ml ophthalmic solution (20 sources) Start: 04-07-20 22 End: 11-14-19 23 Systane Complete 0.6 % eye drops ; 2 drops in both eyes Milliliter 3 times a day for 30 days Quantity: 10 {Milliliter} Refills: 11 Ordered: 13-Nov-2022 CAMDEN Thurman Start: 07-Apr-2022 End: 13-Nov-2022 Status: Inactive Comments: Patient will call when prescription refill is needed. Comment on above: Patient will call wh en prescription refill is needed. QUEtiapine 25 mg oral tablet (6 sources) Atypical Antipsychotic Start: 06-14-20 End: 09-09-19 take 1 tablet by mouth once daily Quetiapine 25 mg Tablet Discontinued 25 mg PO DAILY@1800 0 June 14, 2024 1:00am September 08, 2024 11:49am Start: 04-23-2023 End: 07-21-2023 take 1 tablet by mouth at bedtime Quetiapine 25 mg Tablet Discontinued 25 mg PO AT BEDTIME April 23, 2023 1:00am July 21, 2023 10:03am rivaroxaban 10 mg oral tablet (20 sources) Factor Xa Inhibitor Start: 01-01-2018 End: 10-14-2018 take 1 tablet by mouth once daily Rivaroxaban 10 MG tablet Discontinued 10 mg PO DAILY@0600 15 January 15, 2018 1:25pm October 14, 2018 9:52am sennosides, [facility] 8.6 mg oral tablet (10 sources) Start: 01-02-2018 End: 01-15-2018 take 1 tablet by mouth twice daily as needed Sennosides (Mariangel-Neymar) 1 TABLET tablet Discontinued 1 {tbl} PO TWICE A DAY as needed for Constipation January 02, 2018 12:00am January 15, 2018 1:25pm topiramate 25 mg oral tablet (10 sources) Start: 09-06-2019 End: 03-06-2021 take 1 tablet by mouth once daily Topiramate 25 mg tablet Discontinued 25 mg PO DAILY September 06, 2019 12:00am March 06, 2021 4:11pm traZODone hydrochloride 100 mg oral tablet (20 sources) Serotonin Reuptake Inhibitor Start: 01-15-2018 End: 11-16-2018 take 1 tablet by mouth at bedtime Trazodone 100 mg tablet Discontinued 100 mg PO AT BEDTIME February 23, 2018 8:26am November 16, 2018 11:31am triamcinolone acetonide 0.001 mg/mg topical ointment (20 sources) Corticosteroid Start: 12-13-2021 End: 07-10-2022 Triamcinolone Acetonide 0.1 % ointment Discontinued 1 NMA TOPICAL DAILY December 13, 2021 4:21pm July 10, 2022 12:26pm Start: 05-30-2021 End: 07-10-2022 Triamcinolone Acetonide 0.1 % ointment Discontinued 1 NMA TOPICAL DAILY May 30, 2021 1:00am December 13, 2021 4:21pm Triamcinolone Ac etonide 0.1 % External Cream ; 1 application daily as needed for dermatitis (0.1 %) Comments: Medication taken as needed. Comment on above: Medication taken as needed. Problems Active Problems Problem Classification Problem Date Documented Da te Episodic/Chronic Acute and unspecified renal failure (6 sources) Prerenal azotemia; Translations: [Unspecified kidney failure] 02-23-2022 Chronic Administrative/social admission (20 sources) Advance directive discussed with patient; Translations: [Other specified counseling] Onset: 3 05-14-2023 Episodic Comment on above: 05/14/23 Discussed A dvance Directives with pt. and son. Pt. has a Living Will and HCPOA. Anxiety disorders (10 sources) Anxiety; Translations: [Anxiety disorder, unspecified] 07-12-2022 Chronic Cardiac dysrhythmias (7 sources) Sinus bradycardia; Translations: [Bradycardia, unspecified] 02-23-2022 Episodic Conduction disorders (3 sources) Left bundle branch block; Translations: [Left bundle-branch block, unspecified] Onset: 5 09-16-2024 Chronic Deficiency and other anemia (20 sources) Anemia; Translations: [Anemia, unspecified] 01-29-2018 Episodic Deficiency and other anemia (20 sources) Iron deficiency anemia; Translations: [Iron deficiency anemia, unspecified] 12-14-2021 Episodic Deficiency and other anemia (3 sources) Iron deficiency anemia, unspecified; Translations: [Iron deficiency anemia, unspecified] Episodic Delirium, dementia, and amnestic and other cognitive disorders (20 sources) Dementia; Translations: [Unspecified dementia without behavioral disturbance] Chronic Disorders of lipid metabolism (11 sources) Hyperlipidemia; Translations: [Hyperlipidemia, unspecified] 01-29-2018 Chronic E Codes: Fall (4 sources) Fall; Translations: [Unspecified fall, initial encounter] Episodic Esophageal disorders (20 sources) Gastroesophageal reflux disease; Translations: [Gastro-esophageal reflux disease without esophagitis] Chronic Essential hypertension (20 sources) Essential hypertension; Translations: [Essential (primary) hypertension] 05-14-2023 Chronic Fluid and electrolyte disorders (20 sources) Dehydration; Translations: [Dehydration] Episodic Fracture of neck of femur (hip) (10 sources) Closed fracture of hip; Translations: [Fracture of unspecified part of neck of left femur, initial encounter for closed fracture] 04-06-2018 Episodic Fracture of upper limb (20 sources) Closed fracture of lower end of humerus; Translations: [Fracture of humerus ] 03-06-2021 Episodic Comment on above: This patient has sig nificant loss of range of motion of her left arm at the elbow. Gastrointestinal hemorrhage (20 sources) Melena; Translations: [Melena] Onset: Episodic Genitourinary symptoms and ill-defined conditions (5 sources) Dysuria; Translations: [Dysuria] 04-05-2023 Episodic Immunizations and screening for infectious disease (20 sources) Needs influenza immunization; Translations: [Encounter for immunization] 05-14-2023 Episodic Inflammation; infection of eye (except that caused by tuberculosis or sexually transmitteddisease) (10 sources) Keratitis; Translations: [Photokeratitis, unspecified eye] 12-14-2019 Episodic Malaise and fatigue (20 sources) Fatigue; Translations: [Other fatigue] Onset: 5 Episodic Nonspecific chest pain (20 sources) Chest pain at rest; Translations: [Chest pain, unspecified] 06-30-2022 Episodic Nutritional deficiencies (20 sources) Vitamin D deficiency; Translations: [Vitamin D deficiency, unspecified] Onset: 5 Chronic Osteoarthritis (20 sources) Osteoarthritis of bilateral hip joints; Translations: [Bilateral primary osteoarthritis of hip] 11-13-2022 Chronic Osteoporosis (20 sources) Osteoporosis; Translations: [Age-related osteoporosis without current pathological fracture] Chronic Other aftercare (20 sources) Post-discharge follow-up; Translations: [Encounter for follow-up examination after completed treatment for conditions other than malignant neoplasm] 05-14-2023 Episodic Other aftercare (20 sources) Patient encounter status; Translations: [Encounter for therapeutic drug level monitoring] 04-07-2022 Episodic Other circulatory disease (6 sources) Orthostatic hypotension; Translations: [Orthostatic hypotension] 02-23-2022 Episodic Other connective tissue disease (10 sources) Rhabdomyolysis; Translations: [Rhabdomyolysis] 01-01-2022 Episodic Other connective tissue disease (5 sources) Rhabdomyolysis; Translations: [Rhabdomyolysis] Episodic Other connective tissue disease (20 sources) Decreased muscle tone; Translations: [Other symptoms and signs involving the musculoskeletal system] 05-14-2023 Episodic Other connective tissue disease (2 sources) Muscle wasting and atrophy, not elsewhere classified, right lower leg; Translations: [Muscle wasting and atrophy, not elsewhere classified, right lower leg] Onset: Episodic Other connective tissue disease (1 source) Muscle wasting and atrophy, not elsewhere classified, left lower leg; Translations: [Muscle wasting and atrophy, not elsewhere classified, left lower leg] Onset: Episodic Other eye disorders (20 sources) Dry eyes; Translations: [Dry eye syndrome of bilateral lacrimal glands] 04-07-2022 Episodic Other gastrointestinal disorders (10 sources) Therapeutic opioid induced constipation; Translations: [Drug induced constipation] 01-29-2018 Episodic Other gastrointestinal disorders (20 sources) Acute constipation; Translations: [Constipation, unspecified] 11-13-2022 Episodic Other hereditary and degenerative nervous system conditions (20 sources) Essential tremor; Translations: [Essential tremor] 12-11-2021 Chronic Comment on above: Patient has seen a n eurologist who agreed with the propranolol is the basic treatment. Other hereditary and degenerative nervous system conditions (11 sources) Essential tremor; Translations: [Essential and other specified forms of tremor] Chronic Other hereditary and degenerative nervous system conditions (20 sources) Restless legs; Translations: [Restless legs syndrome] 04-16-2023 Chronic Other hereditary and degenerative nervous system conditions (3 sources) Restless legs syndrome; Translations: [Restless legs syndrome (RLS)] Chronic Other lower respiratory disease (3 sources) Cough; Translations: [Cough] 08-15-2023 Episodic Other lower respiratory disease (1 source) Single lobe lung infiltrate; Translations: [Other nonspecific abnormal finding of lung field] 06-07-2024 Episodic Other nervous system disorders (18 sources) Disorder of brain; 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, unspecified] 12-21-2021 Chronic Other nervous system disorders (8 sources) Encephalopathy, unspecified; 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, unspecified] Chronic Other nervous system disorders (2 sources) Difficulty in walking, not elsewhere classified; Translations: [Difficulty in walking, not elsewhere classified] Onset: Chronic Other nervous system disorders (10 sources) Impaired cognition; Translations: [Other symptoms and signs involving cognitive functions and awareness] 04-16-2023 Episodic Other nervous system disorders (20 sources) Other symptoms and signs involving cognitive functions and awareness; Translations: [Unspecified persistent mental disorders due to conditions classified elsewhere] Episodic Other non-traumatic joint disorders (10 sources) Pain in wrist; Translations: [Pain in left wrist] 10-14-2018 Episodic Other screening for suspected conditions (not mental disorders or infectious disease) (5 sources) CT of chest abnormal; Translations: [Abnormal findings on diagnostic imaging of other specified body structures] Onset: 09-09-2024 Chronic Other skin disorders (10 sources) Seborrheic keratosis; Translations: [Other seborrheic keratosis] 05-30-2021 Episodic Other upper respiratory disease (20 sources) Allergic rhinitis; Translations: [Allergic rhinitis, unspecified] 12-14-2021 Chronic Other upper respiratory disease (3 sources) Allergic rhinitis, unspecified; Translations: [Allergic rhinitis, cause unspecified] Chronic Other upper respiratory infections (20 sources) Nasal discharge; Translations: [Postnasal drip] 04-16-2023 Episodic Residual codes; unclassified (20 sources) Insomnia; Translations: [Insomnia, unspecified] 12-14-2021 Episodic Residual codes; unclassified (3 sources) Insomnia, unspecified; Translations: [Insomnia, unspecified] Episodic Residual codes; unclassified (3 sources) Confusional state; Translations: [Disorientation, unspecified] 08-13-2023 Episodic Residual codes; unclassified (1 source) Altered mental status; Translations: [Altered mental status, unspecified] 06-07-2024 Episodic Screening and history of mental health and substance abuse codes (1 source) H/O: dementia; Translations: [Personal history of other mental and behavioral disorders] 06-07-2024 Episodic Spondylosis; intervertebral disc disorders; other back problems (20 sources) Low back pain; Translations: [Low back pain] Episodic Syncope (6 sources) Syncope and collapse; Translations: [Syncope and collapse] 02-23-2022 Episodic Urinary tract infections (20 sources) Acute urinary tract infection; Translations: [Urinary tract infection, site not specified] Episodic Viral infection (1 source) Disease caused by 2019-nCoV; Translations: [COVID-19] 06-22-2024 Episodic Viral infection (1 source) COVID-19; Translations: [COVID-19] Onset: Past or Other Problems Problem Classification Problem Date Documented Date Episodic/Chronic Esophageal disorders (20 sources) Esophageal disorders 04-09-2022 Headache; including migraine (20 sources) Headache; including migraine 11-13-2022 Other lower respiratory disease (1 source) Other disorders of lung; Translations: [Other disorders of lung] Onset: 08-17-2024 Episodic Pneumonia (except that caused by tuberculosis or sexually transmitted disease) (20 sources) Pneumonia (except that caused by tuberculosis or sexually transmitted disease) 05-16-2023 Residual codes; unclassified (1 source) Edema, unspecified; Translations: [Edema, unspecified] Onset: 06-30-2024 Episodic Unclassified (20 sources) !Patient notification of lab results - Dr. Lemus. The test(s) that you had done were/was blood work. The results of your testing were stable for your medical condition . You should call our office if you have any questions. 11-18-2022 Unclassified (6 sources) Insomnia - The last clinic visit was 5 month(s) ago. Symptoms include difficulty staying asleep, while symptoms do not include daytime sleepiness. 11-13-2022 Unclassified (20 sources) [ADDITIONAL REASON] Osteoarthritis - The last clinic visit was 5 month(s) ago. Note for Osteoarthritis: Feeling good now - no pain 11-13-2022 Unclassified (19 sources) [ADDITIONAL REASON] Alzheimer Disease - The history is reported by a family member. The last clinic visit was 5 month(s) ago. Symptoms include poor memory (at times). 11-13-2022 Unclassified (20 sources) !Patient notification of lab results - Dr. Lemus. The test(s) that you had done were/was a Stress test (This was normal. Please keep the appointment to further discuss the symptoms with the regional economic liaison.). You should call our office if you have any questions. 07-07-2022 Unclassified (20 sources) !Patient notification of lab results - [...] if you have any questions. 07-02-2022 Unclassified (20 sources) Chest pain - Note for Chest pain: Pt. reports intermittent chest pain x 2 [...] today Sat 91-92% room air. 06-30-2022 Unclassified (17 sources) Alzheimer Disease - The history is reported by a family member (Son Morgan here with pt.). 04-09-2022 Unclassified (20 sources) [ADDITIONAL REASON] Tremor, Essential - Symptoms include tremor, while symptoms do not include quavering voice. 04-09-2022 Unclassified (20 sources) [ADDITIONAL REASON] Back Pain - Note for Back pain: Pt Would like refill of tramadol. Running out today. Unsure of what diagnosis to use? Family said that she takes it due to back pain/hip pain 04-09-2022 Unclassified (20 sources) [ADDITIONAL REASON] Restless leg syndrome - pt on medication for this dx. 04-09-2022 Unclassified (15 sources) [ADDITIONAL REASON] Insomnia - The last clinic visit was 5 month(s) ago. Symptoms include difficulty staying asleep, while symptoms do not include daytime sleepiness. 11-13-2022 Unclassified (1 source) Tremor, Essential - Symptoms include tremor, while symptoms do not include quavering voice. 04-09-2022 Unclassified (4 sources) [ADDITIONAL REASON] Alzheimer Disease - The history is reported by a family member (Son Morgan here with pt.). 04-09-2022 Unclassified (2 sources) Alzheimer Disease - The history is reported by a family member. The last clinic visit was 5 month(s) ago. Symptoms include poor memory (at times). 11-13-2022 Unclassified (1 source) Restless leg syndrome - pt on medication for this dx. 04-09-2022 Unclassified (1 source) Back Pain - Note for Back pain: Pt Would like refill of tramadol. Running out today. Unsure of what diagnosis to use? Family said that she takes it due to back pain/hip pain 04-09-2022 Unclassified (1 source) Osteoarthritis - The last clinic visit was 5 month(s) ago. Note for Osteoarthritis: Feeling good now - no pain 11-13-2022 Results Test Name Value Interpretation Reference Range Facility Echo Complete 11-08-2024 Echo [facility] [address] [place] [address] Echo Complete 11/08/24 0912 MR#: [id number] Acct: [id number] Name: SAPNA BULLARD Rep #: [id number] : 1940 84 From: Sharon Crouch MD Attending Dr: Dr. Yunior Desai MD Status: [facility] Ordering Dr: Yunior Desai MD Date: 11/08/24 Location: [facility] Sex: F C Admitted: Reason For Study Reason For Study: LBBB Procedure This was a 2D Doppler, Color Flow transthoracic echocardiogram. Exam performed in department. Left Ventricle Normal LV size. Mild concentric left ventricular hypertrophy. The LV systolic function is normal. EF is 60 %. Stage 1 diastolic dysfunction. Right Ventricle Normal right ventricle. Atria There is mild biatrial dilatation. Mitral Valve Moderate (2+) mitral valve insufficiency. Tricuspid Valve Moderately severe (3+) tricuspid valve insufficiency. Right ventricular systolic pressure estimated to be 41 mmHg. Aortic Valve Moderately calcific aortic valve. Mild aortic valve stenosis. Mean peak gradient 8 mmHg. Aortic valve area 1.5 cm??. Mild aortic valve regurgitation. Pulmonic Valve The pulmonic valve is not well visualized. Great Vessels Mildly dilated aortic root. Pericardium/Pleural No pericardial effusion. MMode/2D Measurements Calculations LVIDd: 4.5 cm IVSd: 1.0 cm LVOT diam: 2.0 cm LVIDs: 3.3 cm LVPWd: 1.2 cm LVOT area: 3.2 cm2 RVDd: 3.1 cm FS: 27.1 % Ao root diam: 4.1 cm LAV(MOD-bp): 48.9 ml LVAd ap4: 20.2 cm2 LAV(MOD-bp) Indexed: 30.7 ml/m2 LVLd ap4: 6.2 cm LAV(MOD-sp2): 55.4 ml EDV(MOD-sp4): 54.0 ml LAV(MOD-sp4): 37.5 ml EDV(sp4-el): 55.9 ml LVAs ap4: 12.4 cm2 LVLs ap4: 5.2 cm ESV(MOD-sp4): 24.7 ml ESV(sp4-el): 24.8 ml EF(MOD-sp4): 54.3 % EF(sp4-el): 55.6 % SV(MOD-sp4): 29.3 ml SV(sp4-el): 31.1 ml LA A4 area: 14.1 cm2 SI(MOD-sp4): 18.4 ml/m2 LA dimension(2D): 3.5 cm RA A4 area: 14.4 cm2 TAPSE: 1.7 cm Time Measurements MV dec time: 0.30 sec Doppler Measurements Calculations MV E max radha: 78.8 cm/sec Lat Peak E' Radha: 6.6 cm/sec Med Peak E' Radha: 4.3 cm/sec MV A max radha: 104.9 cm/sec E/E' lat: 11.9 E/E' med: 18.3 MV E/A: 0.75 Ao V2 max: 182.0 cm/sec LV V1 max: 83.6 cm/sec MV dec slope: 263.8 cm/sec2 Ao max P.3 mmHg LV V1 max P.8 mmHg Ao V2 mean: 129.7 cm/sec LV V1 mean P.9 mmHg Ao mean P.6 mmHg LV V1 mean: 66.5 cm/sec Ao V2 VTI: 42.2 cm LV V1 VTI: 19.5 cm AV (velocity ratio): 0.46 NAYAN(I,D): 1.5 cm2 NAYAN(V,D): 1.5 cm2 SV(LVOT): 62.7 ml PA V2 max: 86.3 cm/sec TR max radha: 302.6 cm/sec TR max P.6 mmHg ECHO/Echo Complete Interpretation Summary Mild concentric left ventricular hypertrophy. The LV systolic function is normal. EF is 60 %. Stage 1 diastolic dysfunction. There is mild biatrial dilatation. Moderate (2+) mitral valve insufficiency. Moderately severe (3+) tricuspid valve insufficiency. Right ventricular systolic pressure estimated to be 41 mmHg. Moderately calcific aortic valve. Mild aortic valve stenosis. Mean peak gradient 8 mmHg. Aortic valve area 1.5 cm??. Mild aortic valve regurgitation. Mildly dilated aortic root. Ordering Physician: Yunior Desai Referring Physician: Genevieve Wu Performed By: Tanya Grigsby, NANCY, RVT 11/09/24 1034 Date Sharon Crouch MD CC: Dr. Genevieve Wu MD; Dr. Yunior Desai MD Date Dictated: 11/08/24 0912 Date Transcribed: 11/09/24 1034 Bag Tester: Signed Normal [facility] Cardiology Visit Reporton Cardiology Visit Report [facility] [address] [place], [place] [address]drew. [address] [place] [address] OFFICE VISIT Date of Service: 10/05/24 MR#: [id number] Acct: [id number] Name: SAPNA BULLARD Rep #: [id number] : 1940 Provider: Dr. Yunior holder MD Age/Sex: 84/F Location: [facility] Status: Signed HPI HPI History of Present Illness Details: Patient comes in is a pleasant 84-year-old white female with her son for a new patient visit. Patient has been referred because of an abnormal CT scan which shows bronchiectasis as well as a dilated ascending aorta 4.4 cm and calcification in her coronary arteries. The patient carries a history of dementia that has been progressing per her neurologist. She has been recently started on memantine which her son reports has made an improvement. The patient does have significant hearing deficits. She had wears hearing aids. Most of the information was obtained through her son. The patient also carries a history of hypertension which is well-controlled and hyperlipidemia which is well-controlled. The patient denies any significant chest discomfort it is difficult to tell due to her communication issues there may be some atypical type chest symptoms but nothing that is impacting her quality of life. She is able to do the things she feels comfortable doing and denies any significant chest discomfort. Patient does have a history of left bundle branch block EKG from May 2024 shows a left bundle branch block with left axis deviation. The patient had a remote pharmacologic nuclear stress test which showed no evidence of ischemia or infarct in June 2022. The patient's last CAT scan 08/04/2024 showed stable fusiform dilation of the ascending aorta. The patient is on propranolol for her tremor heart rate in office today is 75. She is on no other antihypertensive. The patient lives in assisted living. Her son notes that since she has finally started to gain weight she is up from 93 pounds to 118 pounds due to better nutrition. Intake Vital Signs 07/19/24 09:58 10/05/24 08:22 Height 5 ft 5 in 5 ft 5 in Weight: 118 lb BMI 19.6 BP 111/65 Blood Pressure Location Lt brachial Position Sitting Respiration 18 Pulse 75 Pulse Source NIBP Intake Visit Reasons: ABN CT (Self) Accompanied by: Son Is patient in pain?: No Allergies No Known Allergies Allergy (Verified 10/05/24 09:06) Medications ???Medication ???Instructions ???Recorded ???Confirmed ???Type sennosides 8.6 mg-docusate sodium 2 tab PO BID PRN PRN Constipation 04/23/23 10/05/24 Rx 50 mg tablet (Stool #0 tabs Softener-Stimulant Laxative) donepezil 10 mg tablet 10 mg PO QHS #30 tabs 01/20/24 Rx memantine 10 mg tablet 10 mg PO BID #60 tabs 01/20/24 Rx tramadol 50 mg tablet 50 mg PO QDAY PRN pain #20 tabs 10/05/24 Rx acetaminophen 325 mg tablet 650 mg PO Q4H PRN PRN Fever, pain 07/19/24 10/05/24 History 1-10 acetaminophen 500 mg tablet 1,000 mg PO Q8H PRN 07/19/2410/05 History calcium carbonate 600 mg PO BID 07/19/24 10/05/24 Hi story cholecalciferol (vitamin D3) 25 50 mcg PO DAILY 07/19/24 10/05/24 History mcg (1,000 unit) tablet (Vitamin D3) ipratropium bromide 21 mcg (0.03 2 spray intranasal QDAY 07/19/24 0 10/05/24 History %) nasal spray lidocaine 5 % topical patch 1 patch topical QDAY 07/19/2409/14 History nut tx, lact-reduced, iron 0.09 120 ml PO TID 07/19/24 10/05/24 Hi story gram-2.25 kcal/mL oral liquid (Boost [facility]) propranolol 20 mg tablet 20 mg PO .COMPLEX 07/19/24 5 History tramadol 50 mg tablet 50 mg PO BID #60 tabs 09/27/24 Rx alendronate 70 mg tablet mg PO 10/05/24 10/05/24 History pramipexole 0.5 mg tablet 0.5 mg PO BID 10/05/24 History Have you fallen in the past year?: No PFSH Medical History Left bundle branch block Chronic pain Dementia Dementia Essential tremor Restless leg syndrome Wears hearing aid in both ears Anxiety Former smoker Hypertension Cognitive decline Chronic low back pain Fracture of left humerus History of ovarian cyst Hyperlipemia History of wrist fracture GERD (gastroesophageal reflux disease) Osteoporosis Acid reflux Anemia Surgical History History of orthopedic surgery History of hip surgery History of carpal tunnel surgery of left wrist Family History Grandmother Colon cancer Father Colon cancer Heart disease Brother Colon cancer Heart disease Mother Heart disease High cholesterol Social History household m (more content not included)... Normal [facility] Absolute lymphocyte countOrd ered By: Genevieve Wu on 10-03-2024 Lymphocytes Auto (Unsp spec) [#/Vol] 2.02 10*3/uL 0.83-4.51 [facility] Absolute neutrophil countOrd ered By: Genevieve Wu on 10-03-2024 Neutrophils (Bld) [#/Vol] 5.3 10*3/uL 2.0-7.7 [facility] Anion gap in Serum or Plasma Ordered By: Genevieve Wu on 10-03-2024 Anion gap [Moles/Vol] 11 mmol/L 5-15 [facility] Automated lymphocyte count a s percentage of total leukocytesOrdered By: Genevieve Wu on 10-03-2024 Lymphocytes/100 WBC Auto (Unsp spec) 23.5 % 19-41 [facility] BUN/creatinine ratioOrdered By: Genevieve Wu on 10-03-2024 Urea nitrogen/Creatinine [Mass ratio] 22.3 mg/mg High 10-20 [facility] Basophil percentageOrdered B y: Genevieve Wu on 10-03-2024 Basophils/100 WBC (Bld) 0.6 % 0-1 [facility] Bilirubin directOrdered By: Genevieve Wu on 10-03-2024 Bilirubin.direct [Mass/Vol] mg/dL 0.00-0.30 [facility] Bilirubin, totalOrdered By: Genevieve Wu on 10-03-2024 Bilirubin [Mass/Vol] 0.18 mg/dL 0.00-1.30 [facility] Carbon dioxide, total [Moles /volume] in Central venous bloodOrdered By: Genevieve Wu on 10-03-2024 CO2 [Moles/Vol] 28.4 mmol/L 21.0-32.0 [facility] Chloride assayOrdered By: Abe Wu on 10-03-2024 Chloride [Moles/Vol] 101 mmol/L 98-108 [facility] Eosinophil percentageOrdered By: Genevieve Wu on 10-03-2024 Eosinophils/100 WBC (Bld) 2.4 % 0-5 [facility] Erythrocyte distribution wid th ratioOrdered By: Genevieve Wu on 10-03-2024 Erythrocyte distribution width (RBC) [Ratio] 14.8 % High 11.6-14.6 [facility] Erythrocyte distribution wid th standard deviationOrdered By: Genevieve Wu on 10-03-2024 Erythrocyte distribution width (RBC) [Ratio] 47.3 fl High 35.1-43.9 [facility] Glomerular filtration rate ( GFR) estimation/1.73 sq m using serum, plasma, or whole bOrdered By: Genevieve Wu on 10-03-2024 GFR/1.73 sq M.predicted among non-blacks MDRD (S/P/Bld) [Vol rate/Area] 61 mL/min/{1.73_m2} >60 [facility] Comment on above: mL/min/1.73m2 CKD-EP I Creatinine Equation (2020) Hematocrit Auto (Bld) [Volum e fraction]Ordered By: Genevieve Wu 10-03-2024 Hematocrit (Bld) [Volume fraction] 39.7 % 37-47 [facility] Hemoglobin measurementOrdere d By: Genevieve Wu on 10-03-2024 Hemoglobin (Bld) [Mass/Vol] 12.1 g/dL 12.0-15.0 [facility] Immature granulocytes/100 WB C Auto (Bld)Ordered By: Genevieve Wu 10-03-2024 Immature granulocytes/100 WBC (Bld) 0.800 % 0.0-0.9 [facility] Comment on above: IG% - Immature Granu locytes (promyelocytes, myelocytes and metamyelocytes) > 1% indicates that a LEFT SHIFT is Present. Laboratory - Chemistry and C hemistry - challengeOrdered By: Genevieve Olejuanitadrew on 10-03-2024 AST [Catalytic activity/Vol] 22 U/L <32 [facility] MCV (mean corpuscular volume ) determinationOrdered By: Abemihirkarleysharon Blackjuanitadrew on 10-03-2024 MCV (RBC) [Entitic vol] 87.3 fL 81-99 [facility] Mean corpuscular hemoglobin (MCH) determinationOrdered By: Genevieve Blackjuanitadrew on 10-03-2024 MCH (RBC) [Entitic mass] 26.6 pg Low 27.0-32.0 [facility] Mean corpuscular hemoglobin concentration (MCHC) determinationOrdered By: Genevieve Wu on 10-03-2024 MCHC (RBC) [Mass/Vol] 30.5 g/dL Low 32-36 [facility] Mean platelet volume determi nationOrdered By: Genevieve Blackjuanitadrew on 10-03-2024 Platelet mean volume (Bld) [Entitic vol] 9.1 fL 6.2-12.0 [facility] Monocyte percentageOrdered B y: Gerardokarleysharon Blackjuanitadrew on 10-03-2024 Monocytes/100 WBC (Bld) 11.4 % High 0-10 [facility] Neutrophil percentageOrdered By: Genevieve Blackjuanitadrew on 10-03-2024 Neutrophils/100 WBC (Bld) 61.3 % 47-70 [facility] Nucleated red blood cell per centageOrdered By: Gerardokarleysharon Blackjuanitadrew on 10-03-2024 Nucleated RBC/100 WBC (Bld) [Ratio] 0 % 0-5 [facility] Platelet countOrdered By: Aeb yasminsharon Blackjuanitadrew on 10-03-2024 Platelets (Bld) [#/Vol] 456 10*3/uL High 150-450 [facility] Potassium measurement (mass/ volume)Ordered By: Gerardokarleysharon Wu on 10-03-2024 Potassium (Unsp spec) [Mass/Vol] 4.1 mmol/L 3.3-5.1 [facility] RBC Auto (Bld) [#/Vol]Ordere d By: Genevieve Wu on 10-03-2024 RBC (Bld) [#/Vol] 4.55 10*6/uL 4.2-5.4 [facility] Serum creatinine measurement (mass/volume)Ordered By: Genevieve Wu on 10-03-2024 Creatinine [Mass/Vol] 0.93 mg/dL 0.70-1.20 [facility] Serum globulin measurementOr dered By: Genevieve Wu on 10-03-2024 Globulin (S) [Mass/Vol] 3.5 g/dL 2.2-4.2 [facility] Serum glucose measurement (m ass/volume)Ordered By: Genevieve Wu on 10-03-2024 Glucose [Mass/Vol] 95 mg/dL 70-99 [facility] Serum or plasma alanine carpio otransferase (ALT) measurementOrdered By: Genevieve Wu on 10-03-2024 ALT [Catalytic activity/Vol] 16 U/L <35 [facility] Serum or plasma albumin candice urement (mass/volume)Ordered By: Genevieve Wu on 10-03-2024 Albumin [Mass/Vol] 3.9 g/dL 3.4-4.8 [facility] Serum or plasma alkaline anthony sphatase measurementOrdered By: Genevieve Wu on 10-03-2024 ALP [Catalytic activity/Vol] 138 U/L High 35-104 [facility] Serum or plasma calcium candice urement (mass/volume)Ordered By: Genevieve Wu on 10-03-2024 Calcium [Mass/Vol] 10.0 mg/dL 7.6-11.0 [facility] Serum or plasma urea nitroge n measurement (mass/volume)Ordered By: Genevieve Wu on 10-03-2024 Urea nitrogen [Mass/Vol] 21 mg/dL High 4-19 [facility] Sodium levelOrdered By: Gerardo Wu on 10-03-2024 Sodium [Moles/Vol] 141 mmol/L 133-145 [facility] Total proteinOrdered By: Garry Wu on 10-03-2024 Protein [Mass/Vol] 7.4 g/dL 5.9-8.4 [facility] White blood cell (WBC) count Ordered By: Genevieve Wu on 10-03-2024 WBC (Bld) [#/Vol] 8.6 10*3/uL 4.4-11.0 [facility] Pulmonary Visit Reporton Pulmonary Visit Report [facility] [address] [place] [address] OFFICE VISIT Date of Service: 09/08/24 MR#: [id number] Acct: [id number] Name: SAPNA BULLARD Rep #: [id number] : 1940 Provider: Dr. Willian Palm DO Age/Sex: 84/F Location: [facility] Status: Signed Assessment and Plan Assessment and Plan (1) Abnormal chest CT: Status: Chronic Plan: The patient has bilateral cavitary nodules and ground glass along with bronchiectatic changes on CT imaging, which has dated back now up to May 2024. Full autoimmune and vasculitis workup previously completed was unremarkable. Aspergillus antibodies were negative. QuantiFERON gold was negative. These findings could potentially represent a nontuberculous mycobacterial infection. However, given the patient's lack of respiratory symptoms, neither she or her son are overtly interested in proceeding with bronchoscopy with BAL, given the need for anesthesia administration. Alternatively, I did recommend that at a minimum we follow-up with a repeat CT chest in 3 months. I did explain to them that if she were to develop any respiratory related symptoms, including fevers, chills, malaise, shortness of breath or cough that she could contact our office and we would schedule her accordingly for bronchoscopic evaluation. The patient and her son are in agreement with this plan. Orders: Orders Chest without Contrast 3 Months R93.89 - Abnormal findings on diagnostic imaging of other specified body structures HPI HPI Comments Details: The patient is an 84-year-old female who presents to the clinic today in referral for the evaluation of a lung nodule. Her son is present at today's office visit. It should be noted that the patient has baseline dementia and has a great deal of difficulty in understanding the information that was presented to her. Therefore, the findings and recommendations were primarily communicated to the patient's son. In May 2024, the patient was admitted to the hospital with an abnormal chest CT in the setting of COVID-19. At that time, her chest imaging demonstrated bilateral pulmonary nodules, some of which were cavitary along with a dominant left lower lobe cavitary mass with associated tree-in-bud opacities. The etiology and chronicity of these findings were not entirely clear, as there was no prior chest imaging available for comparison. The patient was ultimately treated for her COVID-19 infection and was provided with a 7-day course of Levaquin to cover for secondary bacterial pneumonia. Since that time, the patient has completed a full autoimmune vasculitis workup, all of which was negative. Aspergillus antibodies were negative. TB QuantiFERON was negative. In follow-up from the above, the patient's primary care provider recently ordered a follow-up chest CT. That imaging study again demonstrated bilateral cavitary lung nodules with areas of groundglass opacities in the lower lobes and associated bronchiectasis. The patient and her son reported that she has suffered with a nonproductive cough of several years duration. However, she denies any fevers, chills, malaise, shortness of breath, chest tightness or wheezing. 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 She denied any high risk occupational or environmental exposure history. The patient has a very limited smoking history, having quit completely over 50 years ago. The patient denied any overt concerns for aspiration. 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 Accompanied by: Son Allergies No Known Allergies Allergy (Verified 09/08/24 11:29) Medications ???Medication ???Instructions ???Recorded ???Confirmed ???Type sennosides 8.6 mg-docusate sodium 2 tab PO BID PRN PRN Constipation 04/23/23 09/08/24 Rx 50 mg tablet (Stool #0 tabs Softener-Stimulant Laxative) donepezil 10 mg tablet 10 mg PO QHS #30 tabs 01/20/24 Rx memantine 10 mg tablet 10 mg PO BID #60 tabs 01/20/24 Rx pramipexole 0.5 mg tablet 0.5 mg PO QHS #30 tabs 01/20/24 Rx tramadol 50 mg tablet 50 mg PO QDAY PRN pain #20 tabs 09/08/24 Rx acetaminophen 325 mg tablet 650 mg PO Q4H PRN PRN Fever, pain 07/19/24 09/08/24 History 1-03/24 acetaminophen 500 mg tablet 1,000 mg PO Q8H PRN 07/19/2409/08 History calcium carbonate 600 mg PO BID 07/19/2409/08 (more content not included)... Normal [facility] Absolute lymphocyte countOrd ered By: Genevieve Wu on 08-29-2024 Lymphocytes Auto (Unsp spec) [#/Vol] 1.30 10*3/uL 0.83-4.51 [facility] Absolute neutrophil countOrd ered By: Genevieve Wu on 08-29-2024 Neutrophils (Bld) [#/Vol] 5.4 10*3/uL 2.0-7.7 [facility] Anion gap in Serum or Plasma Ordered By: Genevieve Wu on 08-29-2024 Anion gap [Moles/Vol] 9 mmol/L 5-15 [facility] Automated lymphocyte count a s percentage of total leukocytesOrdered By: Genevieve Wu on 08-29-2024 Lymphocytes/100 WBC Auto (Unsp spec) 16.7 % Low 19-41 [facility] BUN/creatinine ratioOrdered By: Genevieve Wu on 08-29-2024 Urea nitrogen/Creatinine [Mass ratio] 20.0 mg/mg 10-20 [facility] Basophil percentageOrdered B y: Genevieve Wu on 08-29-2024 Basophils/100 WBC (Bld) 0.6 % 0-1 [facility] Carbon dioxide, total [Moles /volume] in Central venous bloodOrdered By: Genevieve Wu on 08-29-2024 CO2 [Moles/Vol] 27.1 mmol/L 21.0-32.0 [facility] Chloride assayOrdered By: Abe Wu on 08-29-2024 Chloride [Moles/Vol] 101 mmol/L 98-108 [facility] Eosinophil percentageOrdered By: Genevieve Wu on 08-29-2024 Eosinophils/100 WBC (Bld) 2.2 % 0-5 [facility] Erythrocyte distribution wid th ratioOrdered By: Genevieve Wu on 08-29-2024 Erythrocyte distribution width (RBC) [Ratio] 16.1 % High 11.6-14.6 [facility] Erythrocyte distribution wid th standard deviationOrdered By: Genevieve Wu on 08-29-2024 Erythrocyte distribution width (RBC) [Ratio] 50.8 fl High 35.1-43.9 [facility] Glomerular filtration rate ( GFR) estimation/1.73 sq m using serum, plasma, or whole bOrdered By: Genevieve Wu on 08-29-2024 GFR/1.73 sq M.predicted among non-blacks MDRD (S/P/Bld) [Vol rate/Area] 64 mL/min/{1.73_m2} >60 [facility] Comment on above: mL/min/1.73m2 CKD-EP I Creatinine Equation (2020) Hematocrit Auto (Bld) [Volum e fraction]Ordered By: Genevieve Wu on 08-29-2024 Hematocrit (Bld) [Volume fraction] 38.6 % 37-47 [facility] Hemoglobin measurementOrdere d By: Genevieve Wu on 08-29-2024 Hemoglobin (Bld) [Mass/Vol] 11.9 g/dL Low 12.0-15.0 [facility] Immature granulocytes/100 WB C Auto (Bld)Ordered By: Genevieve Wu 08-29-2024 Immature granulocytes/100 WBC (Bld) 0.500 % 0.0-0.9 [facility] Comment on above: IG% - Immature Granu locytes (promyelocytes, myelocytes and metamyelocytes) > 1% indicates that a LEFT SHIFT is Present. MCV (mean corpuscular volume ) determinationOrdered By: Genevieve Wu 08-29-2024 MCV (RBC) [Entitic vol] 86.2 fL 81-99 [facility] Mean corpuscular hemoglobin (MCH) determinationOrdered By: Genevieve Wu on 08-29-2024 MCH (RBC) [Entitic mass] 26.6 pg Low 27.0-32.0 [facility] Mean corpuscular hemoglobin concentration (MCHC) determinationOrdered By: Genevieve Wu on 08-29-2024 MCHC (RBC) [Mass/Vol] 30.8 g/dL Low 32-36 [facility] Mean platelet volume determi nationOrdered By: Genevieve Wu on 08-29-2024 Platelet mean volume (Bld) [Entitic vol] 8.9 fL 6.2-12.0 [facility] Monocyte percentageOrdered B y: Genevieve Wu on 08-29-2024 Monocytes/100 WBC (Bld) 11.2 % High 0-10 [facility] Neutrophil percentageOrdered By: Genevieve Wu on 08-29-2024 Neutrophils/100 WBC (Bld) 68.8 % 47-70 [facility] Nucleated red blood cell per centageOrdered By: Genevieve Wu on 08-29-2024 Nucleated RBC/100 WBC (Bld) [Ratio] 0 % 0-5 [facility] Platelet countOrdered By: Abe Wu on 08-29-2024 Platelets (Bld) [#/Vol] 389 10*3/uL 150-450 [facility] Potassium measurement (mass/ volume)Ordered By: Genevieve Wu on 08-29-2024 Potassium (Unsp spec) [Mass/Vol] 4.1 mmol/L 3.3-5.1 [facility] RBC Auto (Bld) [#/Vol]Ordere d By: Genevieve Wu on 08-29-2024 RBC (Bld) [#/Vol] 4.48 10*6/uL 4.2-5.4 [facility] Serum creatinine measurement (mass/volume)Ordered By: Genevieve Wu on 08-29-2024 Creatinine [Mass/Vol] 0.90 mg/dL 0.70-1.20 [facility] Serum glucose measurement (m ass/volume)Ordered By: Genevieve Waynechey on 08-29-2024 Glucose [Mass/Vol] 87 mg/dL 70-99 [facility] Serum or plasma calcium candice urement (mass/volume)Ordered By: Gerardocirclesharon Waynechey on 08-29-2024 Calcium [Mass/Vol] 9.6 mg/dL 7.6-11.0 [facility] Serum or plasma urea nitroge n measurement (mass/volume)Ordered By: Genevieve Waynejuanitadrew on 08-29-2024 Urea nitrogen [Mass/Vol] 18 mg/dL 4-19 [facility] Sodium levelOrdered By: Abe dion Wu on 08-29-2024 Sodium [Moles/Vol] 138 mmol/L 133-145 [facility] White blood cell (WBC) count Ordered By: [facility]on Waynejuanitadrew on 08-29-2024 WBC (Bld) [#/Vol] 7.8 10*3/uL 4.4-11.0 [facility] OPERATIVE PROCEDURESon 08-12 OPERATIVE PROCEDURES [facility] OPERATIVE REPORT NAME ACCOUNT SEX AGE ADMIT DISCHARGE PT MED. RECORD# NUMBER DATE DATE TYPE SAPNA BULLARD [id number] F 84 08/11/24 2 [id number] ROOM: DATE OF : 1940 DICTATING PHYSICIAN: Marcos White DATE OF PROCEDURE: August 11, 2024 SURGEON: Marcos White DO ELECTRONIC DEVELOPMENT TECHNICIAN: None. ANESTHESIA: Local. PREPROCEDURE DIAGNOSES: 1. Lumbosacral radiculitis/M54.17. 2. Lumbar radiculitis/54.16 POSTPROCEDURE DIAGNOSES: 1. Lumbosacral radiculitis/M54.17. 2. Lumbar radiculitis/54.16 PROCEDURE: Lumbar epidural with fluoroscopy. COMPLICATIONS: None. IV FLUIDS: None. ESTIMATED BLOOD LOSS: None. INDICATIONS OF PROCEDURE: This is an 84-year-old female with severe low back and radicular pain refractory to medications. The patient responds extremely well to epidural injections. The last epidural injection she had 80 mg of Kenalog with insomnia for 6 weeks. We decided to either decrease the dose or give her Depo-Medrol. We will try Kenalog 40 mg today, and see if we get the same pain results without the insomnia. The patient agrees with the risks and benefits of the above. DESCRIPTION OF OPERATION: This 84-year-old female was taken to the operating room and was placed in the sitting position. Under sterile prep of the lumbar spine, a local was given at the L2-3 interspace identified via fluoroscopic views. A #18 gauge Tuohy needle was placed midline into the epidural space via loss of resistance with air. After appropriate confirmation and negative aspiration, Omnipaque 300/0.25 mL was Page 1 of 2 SAPNA BULLARD Operative Report SAPNA BULLARD : 1940 injected showing good spread of the dye in the epidural space though the picture was quite oblique given the rotation of her spine and the scoliosis. Once again following negative aspiration, Kenalog 40 mg with preservative-free saline 3 mL was then injected through the needle. The needle was then removed intact. The patient was transferred to Ambulatory Surgery in satisfactory condition. Dictated By: Marcos White DO 08/11/24 10:54 JOB #: [id number] Transcribed By: am 08/11/24 11:28 Electronically signed by: E-SIGN: MARCOS WHITE 08/12/24 14:42 Page 2 of 2 SAPNA BULLARD Operative Report Normal [facility] C-ARM USAGE 1 HOUR C-ARM USAGE 1 HOUR [place] [address] Patient: SAPNA BULLARD. Phone#: : [phone] Age: 84 Gender: F Pt. Type: Out Account: [id number] Location: 062 Ordering: MARCOS WHITE Exam Date: 08/11/2024/10:47 Family Phys: NICCI LEMUS Charge Code: 186007 Physician: [place] Order #: [id number] Dose#: 1.12 mGy PROCEDURE: C-ARM USEAGE 1 HR COMPARISON: [facility], C-ARM USEAGE 1 HR, 02/05/2024, 11:01. INDICATIONS: Pain. TOTAL DOSE: 1.12 mGy FINDINGS: IMAGES: BONES: Normal. No significant arthropathy or acute abnormality. SOFT TISSUES: Aortic calcification is present. EFFUSION: None visible. OTHER: Dorsal spinal needle is present at lumbar level. Contrast is present. CONCLUSION: 1. Spinal needle is present at the lumbar. Dictated by: Danitza Richardson MD on 08/11/2024 at 12:24 Approved by: Danitza Richardson MD on 08/11/2024 at 12:24 Normal [facility] Chest WITH Contraston 2024 Chest WITH Contrast [facility] Imaging Services [address] [place], [place] [address] Chest WITH Contrast MR#: [id number] Acct: [id number] Name: SAPNA BULLARD Rep #: [id number] : 1940 F 84 From: Gerson Mancini MD PCP: Dr. Genevieve Wu MD Status: REG CLI Study: Chest WITH Contrast Date of Exam: 08/03/24 Exam# [id number] Ordering Dr: Genevieve Wu MD PROCEDURE: CHEST WITH CONTRAST REASON FOR EXAM: Cavitation of lung. Follow-up CT from 06/07/2024. TECHNIQUE: Contiguous axial scans of 2.5 mm slice thicknesses. Sagittal and coronal reconstruction images were obtained. One or more dose reduction techniques were used (e.g., automated exposure control, adjustment of mA and/or kv according to patient size, use of iterative reconstruction technique). CONTRAST: Isovue-300. 88 mL. COMPARISON: CT dated 06/07/2024. FINDINGS: Hardware: None. Lymph nodes: Stable prominent lymph node anterior to the origin of the right main bronchus. Other small stable mediastinal lymph nodes, non-suspicious. Heart and Vasculature: Normal heart size. No pericardial effusion. Fusiform dilatation of the ascending aorta measuring 4.4 cm, axial image 60. Coronary artery calcifications. Lungs and Airways: Numerous bilateral lung opacities and cavitating nodules are redemonstrated. Areas of ground-glass opacification are scattered throughout both lungs most prevalent in the lower lobes. Bronchiectatic changes are noted in the lower lobes, more prevalent on the left. Tree in bud nodular opacities are noted bilaterally, worse on the left. Pleura: No pleural effusion. No pneumothorax. Upper Abdomen: Visualized portions of the upper abdominal viscera are unremarkable. Bones and soft tissues: Osteopenia. Multilevel spondylosis. Levoscoliosis of the thoracolumbar spine. A 0.7 cm hypodense nodule in the left hepatic lobe, axial image 112. CT/Chest WITH Contrast IMPRESSION: 1. Multiple noncalcified non cavitary and cavitary nodules are redemonstrated. Areas of ground- glass opacification and tree-in-bud opacities are again noted bilaterally. Findings have not changed significantly since the previous study. 2. Bilateral bronchiectatic changes, worse on the left. 3. Stable enlarged mediastinal lymph node. 4. Stable fusiform dilatation of the ascending aorta. 5. Hypodense nodule in the left hepatic lobe may represent a small hemangioma or cyst. Ultrasound may be helpful for further evaluation if indicated. 6. Other nonacute findings detailed above. Reading Location: [facility] CC: Dr. Genevieve Wu MD Bag Tester: Signed Normal [facility] Absolute lymphocyte countOrd ered By: Genevieve Wu on 08-01-2024 Lymphocytes Auto (Unsp spec) [#/Vol] 1.98 10*3/uL 0.83-4.51 [facility] Absolute neutrophil countOrd ered By: Genevieve Wu on 08-01-2024 Neutrophils (Bld) [#/Vol] 4.1 10*3/uL 2.0-7.7 [facility] Automated lymphocyte count a s percentage of total leukocytesOrdered By: Genevieve Wu on 08-01-2024 Lymphocytes/100 WBC Auto (Unsp spec) 25.7 % 19-41 [facility] Basophil percentageOrdered B y: Genevieve Wu on 08-01-2024 Basophils/100 WBC (Bld) 0.9 % 0-1 [facility] Blood urea nitrogen (BUN)/cr eatinine ratioOrdered By: Genevieve Wu on 08-01-2024 Urea nitrogen/Creatinine [Mass ratio] 20.6 mg/mg High 10-20 [facility] Carbon dioxide measurementOr dered By: Genevieve Wu on 08-01-2024 CO2 [Moles/Vol] 32.0 mmol/L 21.0-32.0 [facility] Chloride measurementOrdered By: Genevieve Wu on 08-01-2024 Chloride [Moles/Vol] 101 mmol/L 98-107 [facility] Eosinophil percentageOrdered By: Genevieve Wu on 08-01-2024 Eosinophils/100 WBC (Bld) 4.8 % 0-5 [facility] Erythrocyte distribution wid th ratioOrdered By: haseeb Wu on 08-01-2024 Erythrocyte distribution width (RBC) [Ratio] 15.6 % High 11.6-14.6 [facility] Erythrocyte distribution wid th standard deviationOrdered By: Genevieve Wu on 08-01-2024 Erythrocyte distribution width (RBC) [Ratio] 49.8 fl High 35.1-43.9 [facility] Glomerular filtration rate ( GFR) estimationOrdered By: Genevieve Wu on 08-01-2024 GFR/1.73 sq M.predicted among non-blacks MDRD (S/P/Bld) [Vol rate/Area] 55 mL/min/{1.73_m2} Low >60 [facility] Comment on above: Non- GFR Calc Glucose measurementOrdered B y: Genevieve Wu on 08-01-2024 Glucose [Mass/Vol] 85 mg/dL 74-106 [facility] Hematocrit Auto (Bld) [Volum e fraction]Ordered By: Genevieve Wu on 08-01-2024 Hematocrit (Bld) [Volume fraction] 39.0 % 37-47 [facility] Hemoglobin measurementOrdere d By: Genevieve Wu on 08-01-2024 Hemoglobin (Bld) [Mass/Vol] 11.4 g/dL Low 12.0-15.0 [facility] Immature granulocytes/100 WB C Auto (Bld)Ordered By: Genevieve Wu on 08-01-2024 Immature granulocytes/100 WBC (Bld) 0.800 % 0.0-0.9 [facility] Comment on above: IG% - Immature Granu locytes (promyelocytes, myelocytes and metamyelocytes) > 1% indicates that a LEFT SHIFT is Present. MCV (mean corpuscular volume ) determinationOrdered By: Genevieve Wu on 08-01-2024 MCV (RBC) [Entitic vol] 87.4 fL 81-99 [facility] Mean corpuscular hemoglobin (MCH) determinationOrdered By: Genevieve Wu on 08-01-2024 MCH (RBC) [Entitic mass] 25.6 pg Low 27.0-32.0 [facility] Mean corpuscular hemoglobin concentration (MCHC) determinationOrdered By: Genevieve Wu on 08-01-2024 MCHC (RBC) [Mass/Vol] 29.2 g/dL Low 32-36 [facility] Mean platelet volume determi nationOrdered By: Genevieve Wu on 08-01-2024 Platelet mean volume (Bld) [Entitic vol] 9.0 fL 6.2-12.0 [facility] Monocyte percentageOrdered B y: Genevieve Wu on 08-01-2024 Monocytes/100 WBC (Bld) 14.2 % High 0-10 [facility] Neutrophil percentageOrdered By: Genevieve Wu on 08-01-2024 Neutrophils/100 WBC (Bld) 53.6 % 47-70 [facility] Nucleated red blood cell per centageOrdered By: Genevieve Wu on 08-01-2024 Nucleated RBC/100 WBC (Bld) [Ratio] 0 % 0-5 [facility] Platelet countOrdered By: Abe Wu on 08-01-2024 Platelets (Bld) [#/Vol] 408 10*3/uL 150-450 [facility] Potassium measurementOrdered By: Genevieve Wu on 08-01-2024 Potassium [Moles/Vol] 4.1 mmol/L 3.5-5.1 [facility] RBC Auto (Bld) [#/Vol]Ordere d By: Genevieve Wu on 08-01-2024 RBC (Bld) [#/Vol] 4.46 10*6/uL 4.2-5.4 [facility] Serum anion gap measurementO rdered By: Genevieve Wu on 08-01-2024 Anion gap [Moles/Vol] 6 mmol/L 5-15 [facility] Serum or plasma calcium candice urement (mass/volume)Ordered By: Abehaseeb Blackjuanitadrew on 08-01-2024 Calcium [Mass/Vol] 10.1 mg/dL 8.5-10.1 [facility] Serum or plasma creatinine m easurement (mass/volume)Ordered By: Abehaseeb Blackjuanitadrew on 08-01-2024 Creatinine [Mass/Vol] 1.02 mg/dL 0.55-1.02 [facility] Comment on above: The validity of the calculated GFR & GFRAA in patients over 70 years has not been determined. Clinical correlation is essential. Serum or plasma urea nitroge n measurement (mass/volume)Ordered By: Genevieve Blackjuanitadrew on 08-01-2024 Urea nitrogen [Mass/Vol] 21 mg/dL High 7-18 [facility] Sodium levelOrdered By: Abemihir dion Waynejuanitadrew on 08-01-2024 Sodium [Moles/Vol] 139 mmol/L 136-145 [facility] White blood cell (WBC) count Ordered By: Abemihirkarleysharon Blackjuanitadrew on 08-01-2024 WBC (Bld) [#/Vol] 7.7 10*3/uL 4.4-11.0 [facility] Neurology Visit Reporton Neurology Visit Report [facility] [address], [address] [place] [address] OFFICE VISIT Date of Service: 07/19/24 MR#: [id number] Acct: [id number] Name: SAPNA BULLARD Rep #: [id number] : 1940 Provider: Dr. Vish josé MD Age/Sex: 84/F Location: [facility]. Status: Signed with Addenda ADDENDUM by Dr. Vish Cook MD on 09/21/24 at 1631 Addendum Addendum (09/21/2024): The patient is to begin alendronate 70 mg weekly for osteoporosis. 09/21/24 1631 Date Vish Cook MD cc: * Signed HPI HPI Details: Interim History: Juan Miguel returns for follow-up visit. She has a history of essential tremor and restless leg syndrome. She is accompanied by her son. Since 2021, she has been observed to exhibit memory difficulty. She has had difficulty managing her bills. She has had word finding difficulty. She has had confusion regarding dates and times. She has a tendency to forget and repeat conversations and has had poor recall of recent events. She was living independently however in November 2021 she had a urinary tract infection and had worsening of her cognitive status at that time and was hospitalized. She has exhibited easy irritability and anger. Following her hospitalization she was transferred to a memory care unit at an assisted living facility. She was started on donepezil during her hospitalization and exhibited some initial improvement in her cognitive status and had further initial improvement of her cognitive status following addition of memantine in 2021. She subsequently returned home for a period of time however she was hospitalized again for a urinary tract infection with which she had altered mental status and now resides in an assisted living facility. Mirtazapine was of benefit for her insomnia. During her hospitalization in May 2024, mirtazapine was discontinued and quetiapine 25 mg nightly was initiated for agitation and insomnia. She is no longer having agitation and is sleeping well at night. She has had overall further cognitive decline within recent months. She takes pramipexole nightly for restless leg syndrome and this is of moderate benefit; she experiences some leg restlessness during the day. Propranolol 40 mg every morning and 20 mg every noon and 20mg every 5 PM has been of modest benefit for her essential tremor however she continues to experience functional impairment due to her tremor. She is tolerating the medication well however her tremor continues to be prominent at times. Propranolol 40 mg 3 times daily was not well-tolerated (caused weakness and generalized sluggishness). Primidone 50 mg 1/2 tablet daily caused worsened memory. Her B12 level was noted to be near the low end of the normal range. She previously had fatigue and received a B12 1000mcg IM injection however it is unclear whether she noted any benefit with this. She has had urinary urgency and cough induced urinary incontinence. She has had some anxiety. Her son reports that exacerbations of her insomnia do occur for a period of several weeks after receiving lumbar epidural steroid injections. She was hospitalized in December 2022 for a urinary tract infection with which she had an encephalopathy. A head MRI in December 2021 revealed moderate diffuse cerebral atrophy and mild to moderate bilateral periventricular and subcortical white matter chronic small vessel ischemic disease. She does not have any history of symptomatic lateralizing stroke. She has chronic bilateral hearing loss and uses hearing aids. She obtained a masters degree. She has a history of osteoporosis and vitamin D deficiency. She takes calcium and vitamin D supplements. She was treated with a course of amoxicillin/clavulana te in August 2023 for pneumonia. Mini-mental status exam score was 25/30 in January 2022, 25/30 in June 2022, and 23/30 in January 2024. Physical Exam: Neuro: The patient is awake; she is bradyphrenic; she is able to subtract 7 from 100; she is oriented to day of the week; she is disoriented to year; she is unable to spell world backwards; no rigidity is noted in the wrist; a tremor is noted in the hands when arms are extended Heart: regular rate and rhythm Supplemental Info Cervical spine CT (12/10/2021): FINDINGS: ALIGNMENT: Subluxation of the C1 on C2 articular facets measuring up to 4 mm. VERTEBRAL BODIES: No fracture or acute abnormality. DISC SPACES: Multilevel degenerative changes worst between C4 and C7 with intervertebral disc space narrowing contributing to mild spinal canal and neuroforaminal narrowing. POSTERIOR ELEMENTS: Normal. SPINAL CANAL: Normal. PARASPINAL SOFT TISSUES: Normal. LUNG APICES: Visualized portions normal. OTHER: None. IMPRESSION: No acute fracture. Subluxation of the C1 on C2 articular facets measuring up to 4 mm, likely due to head positioning. (more content not included)... Normal [facility] Absolute lymphocyte countOrd ered By: Genevieve Wu on 06-30-2024 Lymphocytes Auto (Unsp spec) [#/Vol] 1.62 10*3/uL 0.83-4.51 [facility] Absolute neutrophil countOrd ered By: Genevieve Wu on 06-30-2024 Neutrophils (Bld) [#/Vol] 4.2 10*3/uL 2.0-7.7 [facility] Automated lymphocyte count a s percentage of total leukocytesOrdered By: Genevieve Wu on 06-30-2024 Lymphocytes/100 WBC Auto (Unsp spec) 22.7 % 19-41 [facility] Basophil percentageOrdered B y: Genevieve Wu on 06-30-2024 Basophils/100 WBC (Bld) 0.6 % 0-1 [facility] Blood urea nitrogen (BUN)/cr eatinine ratioOrdered By: Genevieve Wu on 06-30-2024 Urea nitrogen/Creatinine [Mass ratio] 27.1 mg/mg High 10-20 [facility] Carbon dioxide measurementOr dered By: Genevieve Wu on 06-30-2024 CO2 [Moles/Vol] 29.0 mmol/L 21.0-32.0 [facility] Chloride measurementOrdered By: Gerardocirclesharon Wu on 06-30-2024 Chloride [Moles/Vol] 106 mmol/L 98-107 [facility] Eosinophil percentageOrdered By: Genevieve Wu on 06-30-2024 Eosinophils/100 WBC (Bld) 3.2 % 0-5 [facility] Erythrocyte distribution wid th ratioOrdered By: Genevieve Wu on 06-30-2024 Erythrocyte distribution width (RBC) [Ratio] 15.3 % High 11.6-14.6 [facility] Erythrocyte distribution wid th standard deviationOrdered By: Genevieve Wu on 06-30-2024 Erythrocyte distribution width (RBC) [Ratio] 47.4 fl High 35.1-43.9 [facility] Glomerular filtration rate ( GFR) estimationOrdered By: Genevieve Wu on 06-30-2024 GFR/1.73 sq M.predicted among non-blacks MDRD (S/P/Bld) [Vol rate/Area] 65 mL/min/{1.73_m2} >60 [facility] Comment on above: Non- GFR Calc Glucose measurementOrdered B y: Genevieve Wu on 06-30-2024 Glucose [Mass/Vol] 87 mg/dL 74-106 [facility] Hematocrit Auto (Bld) [Volum e fraction]Ordered By: Genevieve Wu on 06-30-2024 Hematocrit (Bld) [Volume fraction] 32.5 % Low 37-47 [facility] Hemoglobin measurementOrdere d By: Genevieve Wu on 06-30-2024 Hemoglobin (Bld) [Mass/Vol] 9.6 g/dL Low 12.0-15.0 [facility] Immature granulocytes/100 WB C Auto (Bld)Ordered By: Genevieve Wu on 06-30-2024 Immature granulocytes/100 WBC (Bld) 0.800 % 0.0-0.9 [facility] Comment on above: IG% - Immature Granu locytes (promyelocytes, myelocytes and metamyelocytes) > 1% indicates that a LEFT SHIFT is Present. MCV (mean corpuscular volume ) determinationOrdered By: Genevieve Wu on 06-30-2024 MCV (RBC) [Entitic vol] 87.1 fL 81-99 [facility] Mean corpuscular hemoglobin (MCH) determinationOrdered By: Genevieve Wu on 06-30-2024 MCH (RBC) [Entitic mass] 25.7 pg Low 27.0-32.0 [facility] Mean corpuscular hemoglobin concentration (MCHC) determinationOrdered By: Genevieve Wu on 06-30-2024 MCHC (RBC) [Mass/Vol] 29.5 g/dL Low 32-36 [facility] Mean platelet volume determi nationOrdered By: Genevieve Wu on 06-30-2024 Platelet mean volume (Bld) [Entitic vol] 8.8 fL 6.2-12.0 [facility] Monocyte percentageOrdered B y: Genevieve Wu on 06-30-2024 Monocytes/100 WBC (Bld) 13.4 % High 0-10 [facility] Neutrophil percentageOrdered By: Genevieve Wu on 06-30-2024 Neutrophils/100 WBC (Bld) 59.3 % 47-70 [facility] Nucleated red blood cell per centageOrdered By: Genevieve Wu on 06-30-2024 Nucleated RBC/100 WBC (Bld) [Ratio] 0 % 0-5 [facility] Platelet countOrdered By: haseeb Waynechey on 06-30-2024 Platelets (Bld) [#/Vol] 420 10*3/uL 150-450 [facility] Potassium measurementOrdered By: Genevieve Waynechey on 06-30-2024 Potassium [Moles/Vol] 4.3 mmol/L 3.5-5.1 [facility] RBC Auto (Bld) [#/Vol]Ordere d By: Genevieve Waynechey on 06-30-2024 RBC (Bld) [#/Vol] 3.73 10*6/uL Low 4.2-5.4 [facility] Serum anion gap measurementO rdered By: Genevieve Wu on 06-30-2024 Anion gap [Moles/Vol] 5 mmol/L 5-15 [facility] Serum or plasma calcium candice urement (mass/volume)Ordered By: Gerardokarleysharon Blackjuanitadrew on 06-30-2024 Calcium [Mass/Vol] 9.2 mg/dL 8.5-10.1 [facility] Serum or plasma creatinine m easurement (mass/volume)Ordered By: Salliesharon Blackchey on 06-30-2024 Creatinine [Mass/Vol] 0.89 mg/dL 0.55-1.02 [facility] Comment on above: The validity of the calculated GFR & GFRAA in patients over 70 years has not been determined. Clinical correlation is essential. Serum or plasma urea nitroge n measurement (mass/volume)Ordered By: Abemihirkarleysharon Blackjuanitadrew on 06-30-2024 Urea nitrogen [Mass/Vol] 24 mg/dL High 7-18 [facility] Sodium levelOrdered By: Abemihir dion Waynejuanitadrew on 06-30-2024 Sodium [Moles/Vol] 140 mmol/L 136-145 [facility] White blood cell (WBC) count Ordered By: Salliesharon Blackjuanitadrew on 06-30-2024 WBC (Bld) [#/Vol] 7.2 10*3/uL 4.4-11.0 [facility] ANCAon 06-16-2024 Atypical pANCA <1:20 Normal Neg:<1:20 [facility] Comment on above: Order Comment: PT. R EFUSED BLOOD DRAW. SON ASKED IF ID COME BACK LATER. Result Comment: The atypical pANCA pattern has been observed in a significant percentage of patients with ulcerative colitis, primary sclerosing cholangitis and autoimmune hepatitis. Performed By: #### L 505.7010, L3100.5450, L3300.1200, L3500.3600, L4600.0100 #### [facility] [address] [place], [address] Cytoplasmic Ab <1:20 Normal Neg:<1:20 [facility] Comment on above: Order Comment: PT. R EFUSED BLOOD DRAW. SON ASKED IF ID COME BACK LATER. Performed By: #### L 505.7010, L3100.5450, L3300.1200, L3500.3600, L4600.0100 #### [facility] [address] [place], [address] Perinuclear Ab. <1:20 Normal Neg:<1:20 [facility] Comment on above: Order Comment: PT. R EFUSED BLOOD DRAW. SON ASKED IF ID COME BACK LATER. Result Comment: The presence of positive fluorescence exhibiting P-ANCA or C-ANCA patterns alone is not specific for the diagnosis of Garret's Granulomatosis (WG) or microscopic polyangiitis. Decisions about treatment should not be based solely on ANCA IFA results. The [employer] ANCA [employer] Consensus recommends follow up testing of positive sera with both CO- 3 and MPO-ANCA enzyme immunoassays. As many as 5% serum samples are positive only by EIA. Ref. AM J Clin Pathol 1999;111:507-513. Performed By: #### L 505.7010, L3100.5450, L3300.1200, L3500.3600, L4600.0100 #### [facility] [address] [place], [address] Aspergillus Antibodieson Asp. flavus Negative Normal Neg:<1:1 [facility] Comment on above: Order Comment: PT. R EFUSED BLOOD DRAW. SON ASKED IF ID COME BACK LATER. Performed By: #### L 505.7010, L3100.5450, L3300.1200, L3500.3600, L4600.0100 #### [facility] [address] [place], [place], [id number] Asp. fumigatus Negative Normal Neg:<1:1 [facility] Comment on above: Order Comment: PT. R EFUSED BLOOD DRAW. SON ASKED IF ID COME BACK LATER. Performed By: #### L 505.7010, L3100.5450, L3300.1200, L3500.3600, L4600.0100 #### [facility] [address] [place], [place], [id number] Asp. niger Negative Normal Neg:<1:1 [facility] Comment on above: Order Comment: PT. R EFUSED BLOOD DRAW. SON ASKED IF ID COME BACK LATER. Performed By: #### L 505.7010, L3100.5450, L3300.1200, L3500.3600, L4600.0100 #### [facility] [address] [place], [place], [id number] CCP IgG Antibodieson 025 CCP IgG Ab. 8 units Normal 0-19 [facility] Comment on above: Order Comment: PT. R EFUSED BLOOD DRAW. SON ASKED IF ID COME BACK LATER. Result Comment: Nega tive <20 Weak positive 20 - 39 Moderate positive 40 - 59 Strong positive >59 Performed at: - [address] [id number] Quality Assurance Coordinator: Curtis Rubio PhD, Phone: [phone] Performed at: [facility] [address] [id number] Quality Assurance Coordinator: Angie Moulton MD, Phone: [phone] Performed By: #### L 505.7010, L3100.5450, L3300.1200, L3500.3600, L4600.0100 #### [facility] [address] [place], [address] Basic Metabolic Profile (BMP )on 06-15-2024 BUN Normal 7-18 [facility] Comment on above: Result Comment: Canc elled via OM: Order cancelled - Patient discharged Performed By: #### L 500.2500, L100.0100 #### [facility] [address] [place], [address] BUN/CRE Normal 10-20 [facility] Comment on above: Result Comment: Canc elled via OM: Order cancelled - Patient discharged Performed By: #### L 500.2500, L100.0100 #### [facility] [address] [place], [address] CA,Total Normal 8.5-10.1 [facility] Comment on above: Result Comment: Canc elled via OM: Order cancelled - Patient discharged Performed By: #### L 500.2500, L100.0100 #### [facility] [address] [place], [address] CL Normal 98-107 [facility] Comment on above: Result Comment: Canc elled via OM: Order cancelled - Patient discharged Performed By: #### L 500.2500, L100.0100 #### [facility] [address] [place], [address] CO2 Normal 21.0-32.0 [facility] Comment on above: Result Comment: Canc elled via OM: Order cancelled - Patient discharged Performed By: #### L 500.2500, L100.0100 #### [facility] [address] [place], [address] CREAT,SERUM Normal 0.55-1.02 [facility] Comment on above: Result Comment: Canc elled via OM: Order cancelled - Patient discharged Performed By: #### L 500.2500, L100.0100 #### [facility] [address] [place], [address] EST GFR Normal >60 [facility] Comment on above: Result Comment: Canc elled via OM: Order cancelled - Patient discharged Performed By: #### L 500.2500, L100.0100 #### [facility] [address] [place], [address] EST GFR - AA Normal >60 [facility] Comment on above: Result Comment: Canc elled via OM: Order cancelled - Patient discharged Performed By: #### L 500.2500, L100.0100 #### [facility] [address] [place], [address] GAP Normal 5-15 [facility] Comment on above: Result Comment: Canc elled via OM: Order cancelled - Patient discharged Performed By: #### L 500.2500, L100.0100 #### [facility] [address] [place], [address] GLU Normal 74-106 [facility] Comment on above: Result Comment: Canc elled via OM: Order cancelled - Patient discharged Performed By: #### L 500.2500, L100.0100 #### [facility] [address] [place], [address] Potassium Normal 3.5-5.1 [facility] Comment on above: Result Comment: Canc elled via OM: Order cancelled - Patient discharged Performed By: #### L 500.2500, L100.0100 #### [facility] [address] [place], [address] Basic Metabolic Profile (BMP) Normal 136-145 [facility] Comment on above: Result Comment: Canc elled via OM: Order cancelled - Patient discharged Performed By: #### L 500.2500, L100.0100 #### [facility] [address] [place], [address] CBC W/Diff, Automatedon 01-0 Absolute Neut Normal 2.0-7.7 [facility] Comment on above: Result Comment: Canc elled via OM: Order cancelled - Patient discharged Performed By: #### L 500.2500, L100.0100 #### [facility] [address] [place], [address] HCT Normal 37-47 [facility] Comment on above: Result Comment: Canc elled via OM: Order cancelled - Patient discharged Performed By: #### L 500.2500, L100.0100 #### [facility] [address] [place], [address] HGB Normal 12.0-15.0 [facility] Comment on above: Result Comment: Canc elled via OM: Order cancelled - Patient discharged Performed By: #### L 500.2500, L100.0100 #### [facility] [address] [place], [address] MCH Normal 27.0-32.0 [facility] Comment on above: Result Comment: Canc elled via OM: Order cancelled - Patient discharged Performed By: #### L 500.2500, L100.0100 #### [facility] [address] [place], [address] MCHC Normal 32-36 [facility] Comment on above: Result Comment: Canc elled via OM: Order cancelled - Patient discharged Performed By: #### L 500.2500, L100.0100 #### [facility] [address] [place], [address] MCV Normal 81-99 [facility] Comment on above: Result Comment: Canc elled via OM: Order cancelled - Patient discharged Performed By: #### L 500.2500, L100.0100 #### [facility] [address] [place], [address] NEUT% Normal 47-70 [facility] Comment on above: Result Comment: Canc elled via OM: Order cancelled - Patient discharged Performed By: #### L 500.2500, L100.0100 #### [facility] [address] [place], [address] PLT Normal 150-450 [facility] Comment on above: Result Comment: Canc elled via OM: Order cancelled - Patient discharged Performed By: #### L 500.2500, L100.0100 #### [facility] [address] [place], [address] RBC Normal 4.2-5.4 [facility] Comment on above: Result Comment: Canc elled via OM: Order cancelled - Patient discharged Performed By: #### L 500.2500, L100.0100 #### [facility] [address] [place], [address] RDW CV Normal 11.6-14.6 [facility] Comment on above: Result Comment: Canc elled via OM: Order cancelled - Patient discharged Performed By: #### L 500.2500, L100.0100 #### [facility] [address] [place], [address] RDW SD Normal 35.1-43.9 [facility] Comment on above: Result Comment: Canc elled via OM: Order cancelled - Patient discharged Performed By: #### L 500.2500, L100.0100 #### [facility] [address] [place], [address] WBC Normal 4.4-11.0 [facility] Comment on above: Result Comment: Canc elled via OM: Order cancelled - Patient discharged Performed By: #### L 500.2500, L100.0100 #### [facility] [address] [place], [address] Basic Metabolic Profile (BMP )on 06-14-2024 BUN/CRE 22.1 RATIO High 10-20 [facility] Comment on above: Performed By: #### L 501.4020 #### [facility] [address] [place], [place], [address] [phone] CA,Total 9.2 mg/dL Normal 8.5-10.1 [facility] Comment on above: Performed By: #### L 501.4020 #### [facility] [address] [place], [place], [address] [phone] Chloride [Moles/Vol] 104 mmol/L Normal 98-107 [facility]; [facility] Work Phone: Comment on above: Performed By: #### L 501.4020 #### [facility] [address] [place], [place], [address] [phone]) CO2 [Moles/Vol] 29.0 mmol/L Normal 21.0-32.0 [facility]; [facility] Work Phone: Comment on above: Performed By: #### L 501.4020 #### [facility] [address] [place], [place], [address] Creatinine [Mass/Vol] 0.95 mg/dL Normal 0.55-1.02 [facility]; [facility] Work Phone: Comment on above: Result Comment: The validity of the calculated GFR GFRAA in patients over 70 years has not been determined. Clinical correlation is essential. Performed By: #### L 501.4020 #### [facility] [address] [place], [address] ECRCL 32.19 ml/min Normal [facility]; [facility] Work Phone: Comment on above: Performed By: #### L 501.4020 #### [facility] [address] [place], [place], [address] EST GFR - AA 72 mL/min Normal >60 [facility] Work Phone: Comment on above: Result Comment: Afri can [facility] GFR Calc Performed By: #### L 501.4020 #### [facility] [address] [place], [place], [address] GAP 4 Low 5-15 [facility].; [facility] Work Phone: Comment on above: Performed By: #### L 501.4020 #### [facility] [address] [place], [place], [address] GFR/1.73 sq M.predicted among non-blacks MDRD (S/P/Bld) [Vol rate/Area] 60 mL/min/{1.73_m2} Normal >60 [facility]; [facility] Work Phone: Comment on above: Result Comment: Non- GFR Calc Performed By: #### L 501.4020 #### [facility] [address] [facility] [place], [place], [address] Glucose [Mass/Vol] 99 mg/dL Normal 74-106 [facility].; [facility] Work Phone: Comment on above: Performed By: #### L 501.4020 #### [facility] [address] [place], [place], [address] Potassium [Moles/Vol] 3.2 mmol/L Low 3.5-5.1 [facility].; [facility] Work Phone: Comment on above: Performed By: #### L 501.4020 #### [facility] [address] [place], [place], [phone] Sodium [Moles/Vol] 137 mmol/L Normal 136-145 [facility].; [facility] Work Phone: Comment on above: Performed By: #### L 501.4020 #### [facility] [address] [place], [place], [address] [phone] Urea nitrogen [Mass/Vol] 21 mg/dL High 7-18 [facility]; [facility] Work Phone: Comment on above: Performed By: #### L 501.4020 #### [facility] [address] [place], [place], [phone] CBC W/Diff, Automatedon 12-3 Absolute Lymph 1.57 X10 3/uL Normal 0.83-4.51 [facility] Comment on above: Performed By: #### L 501.4020 #### [facility] [address] [place], [address] Absolute Neut 6.5 X10 3/uL Normal 2.0-7.7 [facility] Comment on above: Performed By: #### L 501.4020 #### [facility] [address] [place], [address] Basophils/100 WBC (Bld) 0.3 % Normal 0-1 [facility]; [facility] Work Phone: Comment on above: Performed By: #### L 501.4020 #### [facility] [address] [place], [address] Eosinophils/100 WBC (Bld) 1.8 % Normal 0-5 [facility]; [facility] Work Phone: Comment on above: Performed By: #### L 501.4020 #### [facility] [address] [place], [address] Erythrocyte distribution width (RBC) [Ratio] 14.3 % Normal 11.6-14.6 [facility]; [facility] Work Phone: Comment on above: Performed By: #### L 501.4020 #### [facility] [address] [place], [address] Hematocrit (Bld) [Volume fraction] 34.3 % Low 37-47 [facility]; [facility] Work Phone: Comment on above: Performed By: #### L 501.4020 #### [facility] [address] [place], [address] Hemoglobin (Bld) [Mass/Vol] 10.4 g/dL Low 12.0-15.0 [facility]; [facility] Work Phone: Comment on above: Performed By: #### L 501.4020 #### [facility] [address] [place], [address] IG% 0.900 Normal 0.0-0.9 [facility]; [facility] Work Phone: Comment on above: Result Comment: IG% - Immature Granulocytes (promyelocytes, myelocytes and metamyelocytes) > 1% indicates that a LEFT SHIFT is Present. Performed By: #### L 501.4020 #### [facility] [address] [place], [address] (862) Lymphocytes/100 WBC (Bld) 16.3 % Low 19-41 [facility] Work Phone: Comment on above: Performed By: #### L 501.4020 #### [facility] [address] [place], [address] MCH (RBC) [Entitic mass] 26.0 pg Low 27.0-32.0 [facility] Work Phone: Comment on above: Performed By: #### L 501.4020 #### [facility] [address] [place], [address] MCHC (RBC) [Mass/Vol] 30.3 g/dL Low 32-36 [facility] Work Phone: Comment on above: Performed By: #### L 501.4020 #### [facility] [address] [place], [address] MCV (RBC) [Entitic vol] 85.8 fL Normal 81-99 [facility] Work Phone: Comment on above: Performed By: #### L 501.4020 #### [facility] [address] [place], [address] Monocytes/100 WBC (Bld) 13.2 % High 0-10 [facility] Work Phone: Comment on above: Performed By: #### L 501.4020 #### [facility] [address] [place], [address] Neutrophils/100 WBC (Bld) 67.5 % Normal 47-70 [facility]; [facility] Work Phone: Comment on above: Performed By: #### L 501.4020 #### [facility] [address] [place], [address] Nucleated RBC (Bld) [#/Vol] 0 10*3/uL Normal 0-5 [facility]; [facility] Work Phone: Comment on above: Performed By: #### L 501.4020 #### [facility] [address] [facility] [place], [address] Platelet mean volume (Bld) [Entitic vol] 8.7 fL Normal 6.2-12.0 [facility]; [facility] Work Phone: Comment on above: Performed By: #### L 501.4020 #### [facility] [address] [place], [address] Platelets (Bld) [#/Vol] 401 10*3/uL Normal 150-450 [facility]; [facility] Work Phone: Comment on above: Performed By: #### L 501.4020 #### [facility] [address] [place], [address] RBC (Bld) [#/Vol] 4.00 10*6/uL Low 4.2-5.4 [facility]; [facility] Work Phone: Comment on above: Performed By: #### L 501.4020 #### [facility] [address] [place], [place], [address] RDW SD 44.6 fL High 35.1-43.9 [facility] Work Phone: Comment on above: Performed By: #### L 501.4020 #### [facility] [address] [place], [address] WBC (Bld) [#/Vol] 9.6 10*3/uL Normal 4.4-11.0 [facility] Work Phone: Comment on above: Performed By: #### L 501.4020 #### [facility] [address] [place], [address] Laboratory - Chemistry and C hemistry - challengeon 06-14-2024 Magnesium [Mass/Vol] 9.2 mg/dL Normal 8.5 - 1 0.1 mg/dL [facility] Work Phone: No Panel Informationon 06-14 Absolute Lymph 1.57 {X10_3/uL} Normal 0.83 - 4.5 1 {X10_3/uL} [facility] Work Phone: Absolute Neut 6.5 {X10_3/uL} Normal 2.0 - 7.7 {X10_3/uL} [facility] Work Phone: BUN/CRE 22.1 {RATIO} Abnormal 10 - 20 {RATIO} [facility] Work Phone: MICHAEL w/ Reflex Mult Confirmon 06-13-2024 MICHAEL TABLE TNP Normal [facility] Comment on above: Order Comment: PT. R EFUSED BLOOD DRAW. SON ASKED IF ID COME BACK LATER. Performed By: #### L 505.7010, L3100.5450, L3300.1200, L3500.3600, L4600.0100 #### [facility] [address] [place], [address] 12 Lead EKGon 06-11-2024 12 Lead EKG [facility] [address] [place] [address] 12 Lead EKG 06/11/24 0555 MR#: [id number] Acct: [id number] Name: SAPNA BULLARD Rep #: [id number] : 1940 84 From: Chevy Lee MD Attending Dr: Dr. Pravin Cruz MD Status : ADM IN Ordering Dr: Emiliano Boykin DO Date: 06/11/24 Location: [facility] [place] Sex: F C Admitted: 06/07/24 Test Reason : CHEST PAIN Blood Pressure : */* mmHG Vent. Rate : 61 BPM Atrial Rate : 61 BPM P-R Int : 142 ms QRS Dur : 126 ms QT Int : 476 ms P-R-T Axes : 71 -38 90 degrees QTcB Int : 479 ms Normal sinus rhythm Left axis deviation Left bundle branch block Abnormal ECG When compared with ECG of 07-Jun-2024 10:33, No significant change was found Confirmed by DEREK SÁNCHEZ, CHEVY ([id number]), assistant production editor BRAD DOCKERY ([id number]) on 06/13/2024 11:10:02 AM Referred By: EDUARDA Confirmed By: CHEVY LEE MD 06/13/24 1110 Date Chevy Lee MD CC: Dr. Emiliano Boykin DO; Dr. Nicci Lemus MD; Dr. Pravin Cruz MD Signed Normal [facility] L501.4020on 06-11-2024 TROPONIN-I HS 25 pg/mL Normal 3.0-54.0 [facility]. Work Phone: Comment on above: Order Comment: 'TROP ' Serial specimen #1, #2 or #3: 3 Result Comment: Plea se Note: New Test Units and Gender Specific Reference Ranges. For more information see Policy Stat Procedure [place] High Sensitivity Troponin (TNIH) and attachments. Performed By: #### L 501.4020 #### [facility] [address] [place], [place], [address] TROPONIN-I HS 21 pg/mL Normal 3.0-54.0 [facility].; [facility]. Work Phone: Comment on above: Order Comment: 'TROP ' Serial specimen #1, #2 or #3: 1 Result Comment: Plea se Note: New Test Units and Gender Specific Reference Ranges. For more information see Policy Stat Procedure [place] High Sensitivity Troponin (TNIH) and attachments. Performed By: #### L 501.4020 #### [facility] [address] [place], [address] TROPONIN-I HS 23 pg/mL Normal 3.0-54.0 [facility].; [facility] Work Phone: Comment on above: Order Comment: 'TROP ' Serial specimen #1, #2 or #3: 1 Result Comment: Plea se Note: New Test Units and Gender Specific Reference Ranges. For more information see Policy Stat Procedure [place] High Sensitivity Troponin (TNIH) and attachments. Performed By: #### L 501.4020 #### [facility] [address] [place], [place], [address] No Panel Informationon 06-10 MICHAEL TABLE Normal [facility].; [facility]. Work Phone: MICHAEL,DIRECT Negative Normal [facility].; [facility]. Work Phone: ANTI-CENT B AB [facility].; [facility]. Work Phone: ANTI-DNA (DS)AB [facility].; [facility], [facility]. Work Phone: ANTI-JULIA-1 [facility].; [facility]. Work Phone: ANTI-SS-A [facility].; [facility]. Work Phone: ANTI-SS-B [facility].; [facility], [facility]. Work Phone: ANTICHROMATIN [facility].; [facility]. Work Phone: ANTISCLERODERM [facility].; [facility]. Work Phone: Asp. flavus Negative [facility].; [facility]. Work Phone: Asp. fumigatus Negative [facility].; [facility], [facility]. Work Phone: Asp. niger Negative [facility].; [facility], [facility]. Work Phone: Atypical pANCA <1:20 [facility].; [facility], [facility]. Work Phone: CCP IgG Ab. 8 {units} Normal 0 - 19 {units} [facility].; [facility], [facility]. Work Phone: Cytoplasmic Ab <1:20 [facility].; [facility]. Work Phone: Perinuclear Ab. <1:20 Normal [facility].; [facility]. Work Phone: CHEMISTRY LAB INSTRUCTOR Ab Normal [facility].; [facility]. Work Phone: CORTES Ab Normal [facility].; [facility]. Work Phone: Quantiferon TB-Gold+on 06-10 QFT MITOGEN SARAH > 10.00 Normal . [facility] Comment on above: Performed By: #### L 505.7010, L3100.5450, L3300.1200, L3500.3600, L4600.0100 #### [facility] [address] [place], [place], [address] QFT NIL VALUE 0.08 IU/mL Normal . [facility] Comment on above: Performed By: #### L 505.7010, L3100.5450, L3300.1200, L3500.3600, L4600.0100 #### [facility] [address] [place], [place], [address] QFT TB GOLD+ Comment Normal . [facility] Comment on above: Result Comment: Sarmad tiFERON-TB Gold Plus is a qualitative indirect test for M tuberculosis infection (including disease) and is intended for use in conjunction with risk assessment, radiography, and other medical and diagnostic evaluations. The QuantiFERON-TB Gold Plus result is determined by subtracting the Nil value from either TB antigen (Ag) value. The Mitogen tube serves as a control for the test. Performed By: #### L 505.7010, L3100.5450, L3300.1200, L3500.3600, L4600.0100 #### [facility] [address] [place], [place], [address] QFT TB POS CRIT Negative Normal Negative [facility] Comment on above: Result Comment: No r esponse to M tuberculosis antigens detected. Infection with M tuberculosis is unlikely, but high risk individuals should be considered for additional testing (ATS/IDSA/CDC Clinical Practice Guidelines, 2017). The reference range is an Antigen minus Nil result of <0.35 IU/mL. The specimen received for QuantiFERON testing was incubated by the ordering institution. Specific procedures outlined in our Directory of Services and in the package insert for the QuantiFERON Gold (In Tube) test must be followed to enable for proper stimulation of cells for the production of interferon gamma. Chemiluminescence immunoassay methodology Performed at: [employer] [id number] Quality Assurance Coordinator: Curtis Rubio PhD, Phone: [phone] Performed By: #### L 505.7010, L3100.5450, L3300.1200, L3500.3600, L4600.0100 #### [facility] [address] [place], [address] QFT TB1+ AG SARAH 0.08 IU/mL Normal . [facility] Comment on above: Performed By: #### L 505.7010, L3100.5450, L3300.1200, L3500.3600, L4600.0100 #### [facility] [address] [place], [address] QFT TB2+ AG SARAH 0.08 IU/mL Normal . [facility] Comment on above: Performed By: #### L 505.7010, L3100.5450, L3300.1200, L3500.3600, L4600.0100 #### [facility] [address] [place], [place], [address] Rheumatoid Factoron 12-27-20 24 RHEUMATOID FAC < 10.0 Normal <15 [facility]; [facility] Work Phone: Comment on above: Order Comment: PT. R EFUSED BLOOD DRAW. SON ASKED IF ID COME BACK LATER. PT REFUSED BLOOD DRAW AT NOON. NURSE WAS INFORMED WILL ADD TO AM DRAW. Performed By: #### L 505.7010, L3100.5450, L3300.1200, L3500.3600, L4600.0100 #### [facility] [address] [place], [address] Consultation - Intensiviston 06-09-2024 Consultation - Instructor Technical Training [facility] Medical Records Department [address] [place] [address] Consultation - Instructor Technical Training 06/09/24 0848 MR#: [id number] Acct: [id number] Name: SAPNA BULLARD Rep #: [id number] : [id number] 84 From: Willian Palm DO PCP: Dr. Nicci Lemus MD Status:ADM IN Location: [place] [id number] Assessment Plan Assessment/Plan (1) COVID-19: PLAN: Plan RECOMMENDATIONS: 1. Continue current supportive measures including physical therapy and potential placement, if needed. 2. Recommend starting Levaquin to complete 7 days of therapy. 3. Check MICHAEL with reflex, ANCA, rheumatoid factor, CCP antibodies and Aspergillus antibodies. 4. Outpatient pulmonary follow-up is recommended along with repeat CT chest in 6 to 8 weeks. IMPRESSIONS: 1. Abnormal CT chest in the setting of COVID-[address] chest obtained at the time of her presentation demonstrated bilateral pulmonary nodules, some of which were cavitary along with a dominant left lower lobe cavitary mass with associated tree-in-bud opacities. The exact etiology and chronicity of these findings is not entirely clear, as there is no prior CT imaging of the chest available for comparison. However, infectious and inflammatory etiologies would be of potential consideration. The patient appears significantly debilitated with baseline dementia. At this time, plan to obtain lab work that will include MICHAEL with reflex, CCP antibodies, rheumatoid factor, ANCA and Aspergillus antibodies. In addition, given that a secondary bacterial infection is a possibility, I would recommend that we treat the patient empirically with Levaquin for 7 days. Ultimately, the patient needs to follow-up in the pulmonary medicine clinic after discharge. I would recommend that we obtain a follow-up CT chest in 6 to 8 weeks to document how much of the findings are acute versus chronic in nature. The results of her autoimmune vasculitis workup can be reviewed at that time. The patient remains clinically stable on room air. This note was generated with Symphony dictation software. It may contain incorrect words, spelling, and punctuation that were not noted in checking the note before signing. HPI Consult Data Date of Consult: 06/09/24 HPI Narrative Reason for Consultation: Abnormal CT scan HPI Narrative: The patient is an 84-year-old female, with a history as outlined below, who presented to the emergency department on June 07 with generalized weakness. The patient had been evaluated in the emergency department on May 30 with concerns for a urinary tract infection. She was ultimately discharged home and completed a treatment course of Keflex. The patient has baseline dementia and is extremely hard of hearing. Therefore, no history could be obtained from the patient herself. Rather, the patient's son was present at the bedside and was able to provide additional details. The patient has had a nonproductive cough, but has never been diagnosed in the past with any pulmonary related conditions. He reported that she has never been diagnosed with any autoimmune conditions or vasculitides. She has a remote smoking history, having quit completely 50+ years ago. On presentation to the emergency department, the patient was documented to be afebrile and hemodynamically stable. She was maintaining appropriate oxygen saturations on room air. Laboratory evaluation revealed a normal white blood cell count. Chemistry profile was unremarkable. COVID PCR was positive. Head CT revealed chronic involutional changes of the brain. A CT chest was obtained which revealed multiple bilateral lung nodules, some of which possessed internal cavitation along with tree-in-bud opacities and a cavitary mass in the left lower lobe. The patient was ultimately admitted to the hospital due to her debilitated state to undergo PT evaluation with possible placement. [facility] Medical History (Updated 06/07/24 @ 14:05 by Sisi Magallon) Chronic pain Dementia Dementia Essential tremor Restless leg syndrome Wears hearing aid in both ears Anxiety Former smoker Hypertension Cognitive decline Chronic low back pain Fracture of left humerus History of ovarian cyst Hyperlipemia History of wrist fracture GERD (gastroesophageal reflux disease) Osteoporosis Acid reflux Anemia Home Medications ???Medication ???Instructions ???Recorded ???Last Taken ???Type tramadol 50 mg tablet 50 mg PO Q8H PRN Pain 02/11/22 Unknown History acetaminophen 325 mg tablet 650 mg (2 x 325 mg) PO Q4H PRN PRN 04/23/23 Unknown Rx Fever, pain -03/24 #30 tabs menthol 0.44 %-zinc oxide 20.6 % 1 applic topical 4X/DAY #0 grams 04/23/23 Unknown Rx topical ointment (Calmoseptine) sennosides 8.6 mg-docusate sodium 2 tab PO BID PRN PRN Constipation 04/23/23 Unknown Rx 50 mg tablet (Stool #0 tabs Softener-Stimulant Laxativ (more content not included)... Normal [facility] Basic Metabolic Profile (BMP )on 06-08-2024 BUN/CRE 17.3 RATIO Normal - [facility] Comment on above: Performed By: #### L 500.2500, L100.0100 #### [facility] [address] [facility] [address] [place],Total 8.6 mg/dL Normal 8.5-10.1 [facility] Comment on above: Performed By: #### L 500.2500, L100.0100 #### [facility] [address] [facility] [address] Chloride [Moles/Vol] 105 mmol/L Normal 98-107 [facility]; [facility] Work Phone: Comment on above: Performed By: #### L 500.2500, L100.0100 #### [facility] [address] [place], [address] CO2 [Moles/Vol] 27.0 mmol/L Normal 21.0-32.0 [facility]; [facility] Work Phone: Comment on above: Performed By: #### L 500.2500, L100.0100 #### [facility] [address] [facility] [id number] Creatinine [Mass/Vol] 0.75 mg/dL Normal 0.55-1.02 Eas [facility]; [facility] Work Phone: Comment on above: Result Comment: The validity of the calculated GFR GFRAA in patients over 70 years has not been determined. Clinical correlation is essential. Performed By: #### L 500.2500, L100.0100 #### [facility] [address] [place], [place], [phone] (469) ECRCL 38.23 ml/min Normal [facility]; [facility] Work Phone: Comment on above: Performed By: #### L 500.2500, L100.0100 #### [facility] [address] [place], [place], [id number] (432) EST GFR - AA 94 mL/min Normal >60 [facility]; [facility] Work Phone: Comment on above: Result Comment: Afri can [facility] GFR Calc Performed By: #### L 500.2500, L100.0100 #### [facility] [address] [place], [address] GAP 6 Normal 5-15 [facility]; [facility] Work Phone: Comment on above: Performed By: #### L 500.2500, L100.0100 #### [facility] [address] [facility] [place], [place], [id number] (241) GFR/1.73 sq M.predicted among non-blacks MDRD (S/P/Bld) [Vol rate/Area] 78 mL/min/{1.73_m2} Normal >60 [facility]; [facility]. Work Phone: Comment on above: Result Comment: Non- GFR Calc Performed By: #### L 500.2500, L100.0100 #### [facility] [address] [place], [address] Glucose [Mass/Vol] 84 mg/dL Normal 74-106 [facility]; [facility] Work Phone: Comment on above: Performed By: #### L 500.2500, L100.0100 #### [facility] [address] [place], [address] Potassium [Moles/Vol] 3.6 mmol/L Normal 3.5-5.1 [facility]; [facility] Work Phone: Comment on above: Performed By: #### L 500.2500, L100.0100 #### [facility] [address] [place], [address] Sodium [Moles/Vol] 138 mmol/L Normal 136-145 [facility]; [facility] Work Phone: Comment on above: Performed By: #### L 500.2500, L100.0100 #### [facility] [address] [place], [address] Urea nitrogen [Mass/Vol] 13 mg/dL Normal 7-18 [facility]; [facility] Work Phone: Comment on above: Performed By: #### L 500.2500, L100.0100 #### [facility] [address] [place], [address] CBC W/Diff, Automatedon 12-2 Absolute Lymph 1.28 X10 3/uL Normal 0.83-4.51 [facility] Comment on above: Performed By: #### L 300.3900, L501.2300, L500.2500, L100.0100, L501.5200, L500.3400, L500.4050, L501.9520 #### [facility] [address] [place], [place], [id number] (825) Absolute Neut 3.9 X10 3/uL Normal 2.0-7.7 [facility] Comment on above: Performed By: #### L 300.3900, L501.2300, L500.2500, L100.0100, L501.5200, L500.3400, L500.4050, L501.9520 #### [facility] [address] [facility] [place] [place], [address] Basophils/100 WBC (Bld) 0.3 % Normal 0-1 [facility]; [facility] Work Phone: Comment on above: Performed By: #### L 300.3900, L501.2300, L500.2500, L100.0100, L501.5200, L500.3400, L500.4050, L501.9520 #### [facility] [address] [place], [place], [id number] (312) Eosinophils/100 WBC (Bld) 3.2 % Normal 0-5 [facility]; [facility] Work Phone: Comment on above: Performed By: #### L 300.3900, L501.2300, L500.2500, L100.0100, L501.5200, L500.3400, L500.4050, L501.9520 #### [facility] [address] [place], [address] Erythrocyte distribution width (RBC) [Ratio] 14.4 % Normal 11.6-14.6 [facility]; [facility] Work Phone: Comment on above: Performed By: #### L 300.3900, L501.2300, L500.2500, L100.0100, L501.5200, L500.3400, L500.4050, L501.9520 #### [facility] [address] [place], [address] Hematocrit (Bld) [Volume fraction] 31.3 % Low 37-47 [facility]; [facility] Work Phone: Comment on above: Performed By: #### L 300.3900, L501.2300, L500.2500, L100.0100, L501.5200, L500.3400, L500.4050, L501.9520 #### [facility] [address] [place], [address] Hemoglobin (Bld) [Mass/Vol] 9.4 g/dL Low 12.0-15.0 [facility]; [facility] Work Phone: Comment on above: Performed By: #### L 300.3900, L501.2300, L500.2500, L100.0100, L501.5200, L500.3400, L500.4050, L501.9520 #### [facility] [address] [place], [address] IG% 1.000 High 0.0-0.9 [facility]; [facility] Work Phone: Comment on above: Result Comment: IG% - Immature Granulocytes (promyelocytes, myelocytes and metamyelocytes) > 1% indicates that a LEFT SHIFT is Present. Performed By: #### L 300.3900, L501.2300, L500.2500, L100.0100, L501.5200, L500.3400, L500.4050, L501.9520 #### [facility] [address] [place], [place], [id number] Lymphocytes/100 WBC (Bld) 20.7 % Normal 19-41 [facility]; [facility] Work Phone: Comment on above: Performed By: #### L 300.3900, L501.2300, L500.2500, L100.0100, L501.5200, L500.3400, L500.4050, L501.9520 #### [facility] [address] [facility] [place], [address] MCH (RBC) [Entitic mass] 25.5 pg Low 27.0-32.0 [facility]; [facility] Work Phone: Comment on above: Performed By: #### L 300.3900, L501.2300, L500.2500, L100.0100, L501.5200, L500.3400, L500.4050, L501.9520 #### [facility] [address] [place], [place], [id number] MCHC (RBC) [Mass/Vol] 30.0 g/dL Low 32-36 Eas [facility]; [facility] Work Phone: Comment on above: Performed By: #### L 300.3900, L501.2300, L500.2500, L100.0100, L501.5200, L500.3400, L500.4050, L501.9520 #### [facility] [address] [place], [address] (422) MCV (RBC) [Entitic vol] 84.8 fL Normal 81-99 [facility].; [facility] Work Phone: Comment on above: Performed By: #### L 300.3900, L501.2300, L500.2500, L100.0100, L501.5200, L500.3400, L500.4050, L501.9520 #### [facility] [address] [place], [address] (693) Monocytes/100 WBC (Bld) 12.0 % High 0-10 E [facility].; [facility] Work Phone: Comment on above: Performed By: #### L 300.3900, L501.2300, L500.2500, L100.0100, L501.5200, L500.3400, L500.4050, L501.9520 #### [facility] [address] [place], [address] (838) Neutrophils/100 WBC (Bld) 62.8 % Normal 47-70 [facility]; [facility] Work Phone: Comment on above: Performed By: #### L 300.3900, L501.2300, L500.2500, L100.0100, L501.5200, L500.3400, L500.4050, L501.9520 #### [facility] [address] [place], [address] (909) Nucleated RBC (Bld) [#/Vol] 0 10*3/uL Normal 0-5 [facility]; [facility] Work Phone: Comment on above: Performed By: #### L 300.3900, L501.2300, L500.2500, L100.0100, L501.5200, L500.3400, L500.4050, L501.9520 #### [facility] [address] [place], [place], [phone] (825) Platelet mean volume (Bld) [Entitic vol] 8.9 fL Normal 6.2-12.0 [facility]; [facility] Work Phone: Comment on above: Performed By: #### L 300.3900, L501.2300, L500.2500, L100.0100, L501.5200, L500.3400, L500.4050, L501.9520 #### [facility] [place], [address] (793) Platelets (Bld) [#/Vol] 342 10*3/uL Normal 150-450 [facility]; [facility] Work Phone: Comment on above: Performed By: #### L 300.3900, L501.2300, L500.2500, L100.0100, L501.5200, L500.3400, L500.4050, L501.9520 #### [facility] [address] [place], [place], [id number] (229) RBC (Bld) [#/Vol] 3.69 10*6/uL Low 4.2-5.4 [facility]; [facility] Work Phone: Comment on above: Performed By: #### L 300.3900, L501.2300, L500.2500, L100.0100, L501.5200, L500.3400, L500.4050, L501.9520 #### [facility] [address] [place], [address] RDW SD 44.8 fL High 35.1-43.9 [facility]; [facility] Work Phone: Comment on above: Performed By: #### L 300.3900, L501.2300, L500.2500, L100.0100, L501.5200, L500.3400, L500.4050, L501.9520 #### [facility] [address] [place], [address] WBC (Bld) [#/Vol] 6.2 10*3/uL Normal 4.4-11.0 [facility]; [facility] Work Phone: Comment on above: Performed By: #### L 300.3900, L501.2300, L500.2500, L100.0100, L501.5200, L500.3400, L500.4050, L501.9520 #### [facility] [address] [place], [address] Comprehensive Metabolic Prof ilon 3 Albumin/Globulin [Mass ratio] 0.7 {ratio} Low 0.9-2.4 [facility]; [facility] Work Phone: Comment on above: Performed By: #### L 500.2500, L100.0100 #### [facility] [address] [place], [address] Laboratory - Chemistry and C hemistry - challengeon 06-08-2024 Magnesium [Mass/Vol] 8.6 mg/dL Normal 8.5 - 1 0.1 mg/dL [facility]; [facility] Work Phone: Liver Profileon 06-08-2024 Albumin [Mass/Vol] 2.5 g/dL Low 3.2-5.0 [facility]; [facility] Work Phone: Comment on above: Performed By: #### L 500.2500, L100.0100 #### [facility] [address] [place], [address] ALK P 96 U/L Normal 45-117 [facility]; [facility] Work Phone: Comment on above: Performed By: #### L 500.2500, L100.0100 #### [facility] [address] [place], [place], [address] (912) ALT [Catalytic activity/Vol] 17 U/L Normal 13-56 [facility]; [facility] Work Phone: Comment on above: Performed By: #### L 500.2500, L100.0100 #### [facility] [address] [place], [address] AST [Catalytic activity/Vol] 15 U/L Normal 15-37 [facility]; [facility] Work Phone: Comment on above: Performed By: #### L 500.2500, L100.0100 #### [facility] [address] [place], [address] Bilirubin [Mass/Vol] 0.30 mg/dL Normal 0.20-1.00 [facility]; [facility] Work Phone: Comment on above: Result Comment: For patients on eltrombopag therapy, use of Dimension [place] TBIL is not recommended. Performed By: #### L 500.2500, L100.0100 #### [facility] [address] [place], [address] Bilirubin.direct [Mass/Vol] 0.09 mg/dL Normal 0.00-0.30 [facility]; [facility] Work Phone: Comment on above: Performed By: #### L 500.2500, L100.0100 #### [facility] [address] [place], [address] Globulin (S) [Mass/Vol] 3.4 g/dL Normal 2.2-4.2 [facility]; [facility] Work Phone: Comment on above: Performed By: #### L 500.2500, L100.0100 #### [facility] [address] [facility] [place], [address] T PROT 5.9 g/dL Low 6.4-8.2 [facility]; [facility] Work Phone: Comment on above: Performed By: #### L 500.2500, L100.0100 #### [facility] [address] [place], [address] Magnesiumon 8 Magnesium [Mass/Vol] 1.9 mg/dL Normal 1.6-2.6 [facility]; [facility] Work Phone: Comment on above: Performed By: #### L 500.2500, L100.0100 #### [facility] [address] [place], [address] No Panel Informationon 06-08 Absolute Lymph 1.28 {X10_3/uL} Normal 0.83 - 4.5 1 {X10_3/uL} [facility].; [facility]. Work Phone: Absolute Neut 3.9 {X10_3/uL} Normal 2.0 - 7.7 {X10_3/uL} [facility].; [facility]. Work Phone: BUN/CRE 17.3 {RATIO} Normal 10 - 20 {RATIO} [facility].; [facility]. Work Phone: QFT MITOGEN SARAH > 10.00 Normal [facility].; [facility]. Work Phone: QFT NIL VALUE 0.08 {IU/mL} Normal [facility].; [facility]. Work Phone: QFT TB GOLD+ Comment Normal [facility].; [facility]. Work Phone: QFT TB POS CRIT Negative Normal [facility].; [facility]. Work Phone: QFT TB1+ AG SARAH 0.08 {IU/mL} Normal [facility].; [facility]. Work Phone: QFT TB2+ AG SARAH 0.08 {IU/mL} Normal [facility].; [facility]. Work Phone: TSH 1.990 {uIU/mL} Normal 0.358 - 3.740 {uIU/mL} [facility].; [facility] Work Phone: Phosphoruson 06-08-2024 Phosphate [Mass/Vol] 3.3 mg/dL Normal 2.5-4.9 [facility]; [facility] Work Phone: Comment on above: Performed By: #### L 500.2500, L100.0100 #### [facility] [address] [place], [place], [id number] Prothrombin Time w/INRon INR Coag (PPP) [Relative time] 1.1 {INR} Normal [facility]; [facility] Work Phone: Comment on above: Performed By: #### L 500.2500, L100.0100 #### [facility] [place], [place], [address] PT Coag (PPP) [Time] 13.7 s Normal 11.7-14.9 [facility]; [facility] Work Phone: Comment on above: Performed By: #### L 500.2500, L100.0100 #### [facility] [place], [address] Thyroid Stim Hormone (TSH)on 06-08-2024 TSH 1.990 uIU/mL Normal 0.358-3.740 [facility] Comment on above: Performed By: #### L 500.2500, L100.0100 #### [facility] [place], [address] 12 Lead EKGon 06-07-2024 12 Lead EKG [facility] Cardiovascular Services [address] [place] [address] 12 Lead EKG 06/07/24 1033 MR#: [id number] Acct: [id number] Name: SAPNA BULLARD Rep #: [id number] : 1940 84 From: Chevy Lee MD Attending Dr: Dr. John Johnston DO Status: A DM IN Ordering Dr: Dennis Pitts DO Date: 06/07/24 Location: [facility] Sex: F C Admitted: 06/07/24 Test Reason : WEAKNESS Blood Pressure : */* mmHG Vent. Rate : 52 BPM Atrial Rate : 52 BPM P-R Int : 150 ms QRS Dur : 134 ms QT Int : 506 ms P-R-T Axes : 67 -39 75 degrees QTcB Int : 470 ms Sinus bradycardia Left axis deviation Left bundle branch block Abnormal ECG Confirmed by DEREK SÁNCHEZ, CHEVY ([id number]), assistant production editor BRAD DOCKERY ([id number]) on 06/09/2024 2:15:14 PM Referred By: Confirmed By: CHEVY LEE MD 06/09/24 1415 Date Chevy Lee MD CC: Dr. Dennis Pitts DO; Dr. Nicci Lemus MD; Dr. John Johnston DO Signed Normal [facility] Basic Metabolic Profile (BMP )on 06-07-2024 BUN/CRE 14.4 RATIO Normal 10-20 [facility] Comment on above: Order Comment: 'TROP ' Serial specimen #1, #2 or #3: 3 Performed By: #### L 501.4020 #### [facility] [address] [place], [place], [id number] [place],Total 8.8 mg/dL Normal 8.5-10.1 [facility] Comment on above: Order Comment: 'TROP ' Serial specimen #1, #2 or #3: 3 Performed By: #### L 501.4020 #### [facility] [address] [place], [place], [id number] Chloride [Moles/Vol] 104 mmol/L Normal 98-107 [facility]; [facility] Work Phone: Comment on above: Order Comment: 'TROP ' Serial specimen #1, #2 or #3: 3 Performed By: #### L 501.4020 #### [facility] [address] [place], [place], [address] CO2 [Moles/Vol] 28.0 mmol/L Normal 21.0-32.0 [facility]; [facility] Work Phone: Comment on above: Order Comment: 'TROP ' Serial specimen #1, #2 or #3: 3 Performed By: #### L [id number] #### [facility] [address] [facility] [place], [place], [address] Creatinine [Mass/Vol] 0.97 mg/dL Normal 0.55-1.02 [facility]; [facility] Work Phone: Comment on above: Order Comment: 'TROP ' Serial specimen #1, #2 or #3: 3 Result Comment: The validity of the calculated GFR GFRAA in patients over 70 years has not been determined. Clinical correlation is essential. Performed By: #### L 501.4020 #### [facility] [address] [place], [place], [address] EST GFR - AA 71 mL/min Normal >60 [facility]; [facility] Work Phone: Comment on above: Order Comment: 'TROP ' Serial specimen #1, #2 or #3: 3 Result Comment: Afri can [facility] [place] GFR Calc Performed By: #### L [id number] #### [facility] [address] [facility] [place], [place], [address] GAP 6 Normal 5-15 [facility]; [facility] Work Phone: Comment on above: Order Comment: 'TROP ' Serial specimen #1, #2 or #3: 3 Performed By: #### L 501.4020 #### [facility] [address] [place], [place], [id number] [phone] GFR/1.73 sq M.predicted among non-blacks MDRD (S/P/Bld) [Vol rate/Area] 58 mL/min/{1.73_m2} Low >60 [facility]; [facility] Work Phone: Comment on above: Order Comment: 'TROP ' Serial specimen #1, #2 or #3: 3 Result Comment: Non- GFR Calc Performed By: #### L [id number] #### [facility] [address] [place], [place], [id number] [phone] Glucose [Mass/Vol] 88 mg/dL Normal 74-106 [facility]; [facility] Work Phone: Comment on above: Order Comment: 'TROP ' Serial specimen #1, #2 or #3: 3 Performed By: #### L [id number] #### [facility] [address] [place], [place], [address] Potassium [Moles/Vol] 4.1 mmol/L Normal 3.5-5.1 [facility]; [facility] Work Phone: Comment on above: Order Comment: 'TROP ' Serial specimen #1, #2 or #3: 3 Result Comment: Slig ht Hemolysis, Result may be falsely increased. Performed By: #### L [id number] #### [facility] [address] [place], [place], [address] Sodium [Moles/Vol] 138 mmol/L Normal 136-145 [facility]; [facility] Work Phone: Comment on above: Order Comment: 'TROP ' Serial specimen #1, #2 or #3: 3 Performed By: #### L [id number] #### [facility] [address] [place], [place], [address] Urea nitrogen [Mass/Vol] 14 mg/dL Normal 7-18 [facility]; [facility] Work Phone: Comment on above: Order Comment: 'TROP ' Serial specimen #1, #2 or #3: 3 Performed By: #### L [id number] #### [facility] [address] [place], [place], [address] Brain/Head without Contrasto n 06-07-2024 Brain/Head without Contrast [facility] Imaging Services [address] [place], [place] [id number] Brain/Head without Contrast MR#: [id number] Acct: [id number] Name: SAPNA BULLARD Rep #: [id number] : 1940 F 84 From: Talia kebede MD PCP: Dr. Nicci Lemus MD Status: [facility] Study: Brain/Head without Contrast Date of Exam: 05/16 10/06 Exam# [id number] Ordering Dr: Dennis Pitts DO [id number] HISTORY: AMS. TECHNIQUE: Multiple axial images were obtained of the head without intravenous contrast. A radiation dose optimization technique was used for this scan. 245 images. COMPARISON: 12/10/2021. FINDINGS: BRAIN PARENCHYMA: Multiple foci and zones of low attenuation in the bilateral cerebral white matter compatible with chronic small vessel ischemic gliosis. No acute intra-axial hemorrhage identified. CSF SPACES: Chronic moderate volume loss. No midline shift or other significant mass effect. No acute extra-axial hemorrhage seen. OTHER: Intact calvarium. Trace fluid in the sphenoid sinus and mild ethmoid air cell mucosal thickening. Bilateral lens resections. CT/Brain/Head without Contrast IMPRESSION: No acute intracranial process identified. Chronic involutional and white matter changes. Electronically Signed: Talia Ravi MD at 12:21 EST , CC: Dr. Dennis Pitts DO; Dr. Nicci Lemus MD Bag Tester: Signed Normal [facility] CBC W/Diff, Automatedon 05-16 PLT EST ADEQUATE Normal ADEQ [facility]; [facility] Work Phone: Comment on above: Performed By: #### L 500.2500, L100.0100 #### [facility] [address] [facility] [place], [place], [address] Chest 1 View (Portable)on Chest 1 View (Portable) [facility] Imaging Services [address] [place], [place] [address] Chest 1 View (Portable) MR#: [id number] Acct: [id number] Name: SAPNA BULLARD Rep #: [id number] : 1940 F 84 From: Clarence Sandhu MD PCP: Dr. Nicci Lemus MD Status: [facility] ER Study: Chest 1 View (Portable) Date of Exam: 06/07/24 Exam# [id number] Ordering Dr: Dennis Pitts DO [id number] STUDY: X-RAY CHEST REASON FOR EXAM: Female, 84 years old. cough TECHNIQUE: Single AP portable view of the chest. COMPARISON: 05/30/2024 FINDINGS: There is hyperinflation of the lungs consistent with chronic obstructive lung disease (COPD). No change in alveolar opacity in the lower left lung consistent with left lower lobe pneumonia or scarring. There is no demonstrated pleural abnormality. Normal size heart. Normal mediastinum and queenie. Normal visualized pulmonary arteries. Normal visualized aortic arch and descending thoracic aorta. Normal visualized thoracic spine. Normal visualized ribs, clavicles, and shoulders. There is no demonstrated abnormality of the visualized soft tissue structures of the upper abdomen. RAD/Chest 1 View (Portable) IMPRESSION: No change from 05/30/2024. Electronically Signed: Clarence Sandhu MD at 11:04 EST , CC: Dr. Dennis Pitts DO; Dr. Nicci Lemus MD Bag Tester: Signed Normal [facility] Chest WITH Contraston 2023 Chest WITH Contrast [facility] Imaging Services [address] [place] [id number] Chest WITH Contrast MR#: [id number] Acct: [id number] Name: SAPNA BULLARD Rep #: [id number] : 1940 F 84 From: Talia kebede MD PCP: Dr. Nicci Lemus MD Status: [facility] ER Study: Chest WITH Contrast Date of Exam: 06/07/24 Exam# [id number] Ordering Dr: Dennis Pitts DO [id number] HISTORY: pneumonia. TECHNIQUE: CT of the chest was performed after the intravenous administration of 100 mL Isovue-300. Coronal and sagittal reformatted images. Individualized dose optimization techniques were used for this CT. 753 images. COMPARISON: XR same day. FINDINGS: CENTRAL AIRWAYS: Patent. LUNGS: Mild biapical scarring. Mild groundglass and tree-in-bud nodular opacities bilaterally. Multiple solid noncalcified and cavitary nodules of varying sizes throughout the bilateral lungs with a 1.4 cm cavitary left upper lobe nodule. Left lower lobe consolidation, bronchiectasis, and 2.1 x 3.8 x 5.6 cm thick-walled cavitary mass. Mild right upper lobe and lingular consolidation with alveolar opacities. PLEURA: No pneumothorax or significant pleural effusion. HEART/PERICARDIUM: Heart within normal limits in size. No pericardial effusion. AORTA/VESSELS: 4.3 cm ascending aorta. Calcified and noncalcified plaque in the thoracic aorta. No large central filling defect identified in the pulmonary arteries. MEDIASTINUM/QUEENIE: 1.7 x 1.7 cm precarinal lymph node. OSSEOUS STRUCTURES: Osteopenia, scoliosis, and degenerative change. UPPER ABDOMEN: Small cyst in the left hepatic lobe. CT/Chest WITH Contrast IMPRESSION: Multiple cavitary and noncavitary nodules with regions of consolidation, groundglass opacity, and tree-in-bud nodular opacities throughout the bilateral lungs concerning for necrotizing pneumonia or atypical infection such as mycobacterial or fungal pneumonia in the acute setting. Granulomatous disease, metastases, or septic emboli could have a similar appearance with a 5.6 cm cavitary mass in the left lower lobe. Recommend close short-term interval follow-up to exclude neoplastic etiologies. Mildly enlarged mediastinal lymph node, which may be reactive. Mild 4.3 cm dilatation of the ascending aorta. Electronically Signed: Talia Ravi MD at 12:38 EST , CC: Dr. Dennis Pitts DO; Dr. Nicci Lemus MD Bag Tester: Signed Normal [facility] Emergency Department Summary on 06-07-2024 Emergency Department Summary [facility] Medical Records Department [address] [place] [address] Emergency Department Summary 06/07/24 MR#: [id number] Acct: [id number] Name: SAPNA BULLARD Rep #: [id number] : 1940 84 From: Dennis Pitts DO PCP: Dr. Nicci Lemus MD Status:ADM IN Location: [place] [address] HPI History of Present Illness Chief Complaint: General Illness Informant: family Narrative Narrative: 84-year-old female brought to the emergency department by her son with a chief complaint of generalized weakness generalized body pain and chills. He tells me that she was in the emergency department last Thursday and was diagnosed with a possible UTI and was prescribed an antibiotic which she finished yesterday. He states that she continues to feel cold has had decreased activity and notes generalized bodyaches. He notes a cough which is not new. No documented fevers vomiting or diarrhea. She does not want to come out of her room recently. She has a history of dementia and tremor. She has chronic back pain for which she takes Ultram. There is been no report of change in her back pain. Family denies any skin rashes or sores. Family states that she typically weighs around 105 pounds. The weight on the bed currently is reading 106.8. [facility] Medical History (Updated 06/07/24 @ 14:05 by Sisi Magallon) Chronic pain Dementia Dementia Essential tremor Restless leg syndrome Wears hearing aid in both ears Anxiety Former smoker Hypertension Cognitive decline Chronic low back pain Fracture of left humerus History of ovarian cyst Hyperlipemia History of wrist fracture GERD (gastroesophageal reflux disease) Osteoporosis Acid reflux Anemia Home Medications ???Medication ???Instructions ???Recorded ???Last Taken ???Type tramadol 50 mg tablet 50 mg PO Q8H PRN Pain 02/11/22 Unknown History acetaminophen 325 mg tablet 650 mg (2 x 325 mg) PO Q4H PRN PRN 04/23/23 Unknown Rx Fever, pain 1-03/24 #30 tabs menthol 0.44 %-zinc oxide 20.6 % 1 applic topical 4X/DAY #0 grams 04/23/23 Unknown Rx topical ointment (Calmoseptine) sennosides 8.6 mg-docusate sodium 2 tab PO BID PRN PRN Constipation 04/23/23 Unknown Rx 50 mg tablet (Stool #0 tabs Softener-Stimulant Laxative) calcium 250 mg (as 1 tab PO TID Supplement #90 tabs 01/20/24 Unknown Rx citrate)-vitamin D3 5 mcg (200 unit) tablet cholecalciferol (vitamin D3) 25 25 mcg PO DAILY #30 tabs 01/20/24 Unknown Rx mcg (1,000 unit) tablet (Vitamin D3) donepezil 10 mg tablet 10 mg PO QHS #30 tabs 01/20/24 Unknown Rx memantine 10 mg tablet 10 mg PO BID #60 tabs 01/20/24 Unknown Rx pramipexole 0.5 mg tablet 0.5 mg PO QHS #30 tabs 01/20/24 Unknown Rx propranolol 20 mg tablet 20 mg PO .COMPLEX #120 tabs 02/23/24 Unknown Rx Allergy/AdvReac Type Severity Reaction Status Date / Time No Known Allergies Allergy Verified 06/07/24 10:05 Family History Grandmother Colon cancer Father Colon cancer Heart disease Brother Colon cancer Heart disease Mother Heart disease High cholesterol Surgical History History of orthopedic surgery History of hip surgery History of carpal tunnel surgery of left wrist Social History household members: none Smoking Status: Former smoker how long ago did patient quit smokin second hand exposure: No alcohol intake: never substance use type: does not use what type of physical activity do you participate in: other details: PT frequency: 1-2 times per week herrera/mandaen: Mormonism seatbelt use: always ROS ROS ED ROS Narrative Generalized weakness Constitutional Constitutional ED: Reports chills; Denies fever(s), sweats or weight loss Eyes Eyes: Denies change in vision or diplopia ENT ENT ED: Denies ear pain, rhinorrhea or sore throat Cardiovascular Cardiovascular: Denies chest pain, orthopnea, palpitations or racing heartbeat Respiratory/Chest Respiratory/Chest: Reports cough; Denies dyspnea or orthopnea Gastrointestinal Gastrointestinal: Denies abdominal pain, diarrhea, nausea or vomiting Genitourinary Genitourinary ED: Denies dysuria, hematuria or urinary frequency Musculoskeletal Musculoskeletal: Reports arthralgias and myalgias Integumentary Denies abscess or rash Neurologic Neurologic: Denies headache(s) or weakness Psychiatric Psychiatric: Denies anxiety, depression, suicidal ideation or suicidal thoughts Endocrine Endocrinology: Denies polydipsia, polyphagia or polyuria Allergic/Immunologic Allergic/Immunologic ED: Denies mouth swelling, tongue swelling or urticaria EXAM Physical Exam Const Vital Signs: 06/07/24 10:05 06/07/24 11:16 06/07/24 (more content not included)... Normal [facility] H AND P Exam - Hospitaliston 06-07-2024 H&P Exam - Hospitalist [facility] Medical Records Department [address] [place] [address] H P Exam - Hospitalist 06/07/24 1427 MR#: [id number] Acct: [id number] Name: SAPNA BULLARD Rep #: [id number] : 1940 84 From: Hilaria Villagran MD PCP: Dr. Nicci Lemus MD Status:ADM IN Location: [place]3 [id number] HPI - General General Date of Admission: 06/07/24 Date of Service: 06/07/24 Chief Complaint: Generalized weakness HPI Narrative SAPNA BULLARD, is a 84 F with past medical history of mild dementia, actinic keratitis, essential tremor, low back pain, osteoporosis, prior left hip fracture, anxiety who presents to the ED for concerns regarding progressive fatigue, for the last 1 week with associated chills. The history is provided by her son [bedside], patient is hard of hearing and did not participate in most of the interview Since the last 7 to 10 days having ongoing symptoms of increased fatigability, tired and overall decreased vitality. For this concern she was brought to the ED a week back and was started on antibiotics for concerns of urinary tract infection. However despite the antibiotic therapy she has not responded, since the last 2 days he is also having fever with chills, decreased appetite and difficulty taking care of herself. She has cough, intermittent for the past few months. No shortness of breath/worsening respiratory status/PND/orthopnea. 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 She does not cook, does not drive, does not operate the stove, but is able to microwave food. Walks using a cane, has mild dementia, able to take care of basic transactions via self. Previously seen in the ED on 05/30/2024 for concerns regarding confusion, there was 1+ bacteria in the urine and was discharged on cephalexin 500 mg p.o. Today in the ED, WBC 6.4, hemoglobin 10.4, platelet count not reported, INR 0.9, APTT 21.3, sodium 138, potassium 4.1, creatinine 0.9, lactic acid 1.1, albumin 2.7, urine protein is negative, no urine WBCs PFSH Medical History (Updated 06/07/24 @ 14:05 by Sisi Magallon) Chronic pain Dementia Dementia Essential tremor Restless leg syndrome Wears hearing aid in both ears Anxiety Former smoker Hypertension Cognitive decline Chronic low back pain Fracture of left humerus History of ovarian cyst Hyperlipemia History of wrist fracture GERD (gastroesophageal reflux disease) Osteoporosis Acid reflux Anemia Home Medications ???Medication ???Instructions ???Recorded ???Last Taken ???Type tramadol 50 mg tablet 50 mg PO Q8H PRN Pain 02/11/22 Unknown History acetaminophen 325 mg tablet 650 mg (2 x 325 mg) PO Q4H PRN PRN 04/23/23 Unknown Rx Fever, pain 1-03/24 #30 tabs menthol 0.44 %-zinc oxide 20.6 % 1 applic topical 4X/DAY #0 grams 04/23/23 Unknown Rx topical ointment (Calmoseptine) sennosides 8.6 mg-docusate sodium 2 tab PO BID PRN PRN Constipation 04/23/23 Unknown Rx 50 mg tablet (Stool #0 tabs Softener-Stimulant Laxative) calcium 250 mg (as 1 tab PO TID Supplement #90 tabs 01/20/24 Unknown Rx citrate)-vitamin D3 5 mcg (200 unit) tablet cholecalciferol (vitamin D3) 25 25 mcg PO DAILY #30 tabs 01/20/24 Unknown Rx mcg (1,000 unit) tablet (Vitamin D3) donepezil 10 mg tablet 10 mg PO QHS #30 tabs 01/20/24 Unknown Rx memantine 10 mg tablet 10 mg PO BID #60 tabs 01/20/24 Unknown Rx pramipexole 0.5 mg tablet 0.5 mg PO QHS #30 tabs 01/20/24 Unknown Rx propranolol 20 mg tablet 20 mg PO .COMPLEX #120 tabs 02/23/24 Unknown Rx Allergy/AdvReac Type Severity Reaction Status Date / Time No Known Allergies Allergy Verified 06/07/24 10:05 Family History Grandmother Colon cancer Father Colon cancer Heart disease Brother Colon cancer Heart disease Mother Heart disease High cholesterol Surgical History History of orthopedic surgery History of hip surgery History of carpal tunnel surgery of left wrist Social History household members: none Smoking Status: Former smoker how long ago did patient quit smokin second hand exposure: No alcohol intake: never substance use type: does not use what type of physical activity do you participate in: other details: PT frequency: 1-2 times per week herrera/mandaen: Mormonism seatbelt use: always Vital Signs Vital Signs Vital Signs: 06/07/24 10:05 06/07/24 11:16 06/07/24 12:16 Temperature 97.7 F L 97.7 F L Temperature Source Oral Oral Pulse Rate 52 L 68 Pulse Rate [Lying] 58 L Pulse Rate [Sitting (for 1 minute prior to obtaining)] 59 L Pulse Rate [Standing (for 1 minute prior to obtaining)] 64 (more content not included)... Normal [facility] L501.4020on 06-07-2024 TROPONIN-I HS 9 pg/mL Normal 3.0-54.0 [facility]; [facility] Work Phone: Comment on above: Order Comment: 'TROP ' Serial specimen #1, #2 or #3: 3 Result Comment: Plea se Note: New Test Units and Gender Specific Reference Ranges. For more information see Policy Stat Procedure [place] High Sensitivity Troponin (TNIH) and attachments. Performed By: #### L 501.4020 #### [facility] [address] [facility] [place], [place], [id number] Laboratory - Chemistry and C hemistry - challengeon 06-07-2024 Magnesium [Mass/Vol] 8.8 mg/dL Normal 8.5 - 1 0.1 mg/dL [facility]; [facility] Work Phone: Laboratory - Hematology and Cell countson 06-07-2024 Basophils/100 WBC (Bld) 0.6 % Normal 0 - 1 [facility].; [facility] Work Phone: Eosinophils/100 WBC (Bld) 2.2 % Normal 0 - 5 [facility]; [facility] Work Phone: Erythrocyte distribution width (RBC) [Ratio] 14.5 % Normal 11.6 - 14.6 [facility]; [facility] Work Phone: Hematocrit (Bld) [Volume fraction] 34.6 % Abnormal 37 - 47 [facility]; [facility] Work Phone: Hemoglobin (Bld) [Mass/Vol] 10.4 g/dL Abnormal 12.0 - 15.0 g/dL [facility]; [facility]. Work Phone: Lymphocytes/100 WBC (Bld) 19.7 % Normal 19 - 41 [facility]; [facility] Work Phone: MCH (RBC) [Entitic mass] 25.7 pg Abnormal 27. 0 - 32.0 pg [facility]; [facility] Work Phone: MCHC (RBC) [Mass/Vol] 30.1 g/dL Abnormal 32 - 36 g/dL [facility].; [facility] Work Phone: MCV (RBC) [Entitic vol] 85.6 fL Normal 81 - 99 fL [facility]; [facility] Work Phone: Monocytes/100 WBC (Bld) 11.0 % Abnormal 0 - 10 [facility]; [facility] Work Phone: Neutrophils/100 WBC (Bld) 65.9 % Normal 47 - 70 [facility]; [facility] Work Phone: Nucleated RBC (Bld) [#/Vol] 0 10*3/uL Normal 0 - 5 [facility]; [facility] Work Phone: Platelet mean volume (Bld) [Entitic vol] 9.8 fL Normal 6.2 - 12.0 fL [facility]; [facility] Work Phone: RBC (Bld) [#/Vol] 4.04 10*6/uL Abnormal 4.2 - 5.4 {M/mm3} [facility]; [facility] Work Phone: WBC (Bld) [#/Vol] 6.4 10*3/uL Normal 4.4 - 11.0 K/mm3 [facility]; [facility] Work Phone: Laboratory - Microbiology an d Antimicrobial susceptibilityon 06-07-2024 Bacteria identified Cx Nom (Unsp spec) 0 SEEN Normal [facility]; [facility] Work Phone: Laboratory - Specimen inform ationon 06-07-2024 Clarity (U) Clear Normal [facility]; [facility] Work Phone: Color (U) Yellow Normal [facility]; [facility] Work Phone: Laboratory - Urinalysison Nitrite Ql (U) Negative Normal [facility]; [facility] Work Phone: Lactic Acidon 06-07-2024 Lactate [Moles/Vol] 1.1 mmol/L Normal 0.4-1.9 [facility]; [facility] Work Phone: Comment on above: Order Comment: 'TROP ' Serial specimen #1, #2 or #3: 3 Performed By: #### L 501.4020 #### [facility] [address] [place], [address] Lipaseon 06-07-2024 Lipase [Catalytic activity/Vol] 75 U/L Normal 13-75 [facility]; [facility] Work Phone: Comment on above: Order Comment: 'TROP ' Serial specimen #1, #2 or #3: 3 Result Comment: Jaguar leigh note: LIPASE revised reference range effective 22. New Lipase methodology. Expected to produce lower values than the previous assay method. NEW Reference Range: 13 - 75 U/L Performed By: #### L 501.4020 #### [facility] [address] [place], [address] Liver Profileon 06-07-2024 Albumin [Mass/Vol] 2.7 g/dL Low 3.2-5.0 [facility]; [facility] Work Phone: Comment on above: Order Comment: 'TROP ' Serial specimen #1, #2 or #3: 3 Performed By: #### L 501.4020 #### [facility] [address] [place], [address] ALK P 106 U/L Normal 45-117 [facility]; [facility] Work Phone: Comment on above: Order Comment: 'TROP ' Serial specimen #1, #2 or #3: 3 Performed By: #### L 501.4020 #### [facility] [address] [facility] [place], [place], [id number] [phone] ALT [Catalytic activity/Vol] 18 U/L Normal 13-56 [facility]; [facility]. Work Phone: Comment on above: Order Comment: 'TROP ' Serial specimen #1, #2 or #3: 3 Performed By: #### L 501.4020 #### [facility] [address] [facility] [place], [place], [id number] AST [Catalytic activity/Vol] 25 U/L Normal 15-37 [facility]; [facility] Work Phone: Comment on above: Order Comment: 'TROP ' Serial specimen #1, #2 or #3: 3 Result Comment: Slig ht Hemolysis, Result may be falsely increased. Performed By: #### L 501.4020 #### [facility] [address] [place], [place], [id number] Bilirubin [Mass/Vol] 0.40 mg/dL Normal 0.20-1.00 [facility]; [facility] Work Phone: Comment on above: Order Comment: 'TROP ' Serial specimen #1, #2 or #3: 3 Result Comment: For patients on eltrombopag therapy, use of Dimension [place] TBIL is not recommended. Performed By: #### L 501.4020 #### [facility] [address] [place], [place], [id number] Bilirubin.direct [Mass/Vol] 0.08 mg/dL Normal 0.00-0.30 [facility]; [facility] Work Phone: Comment on above: Order Comment: 'TROP ' Serial specimen #1, #2 or #3: 3 Performed By: #### L 501.4020 #### [facility] [address] [place], [place], [phone] (365) Globulin (S) [Mass/Vol] 3.9 g/dL Normal 2.2-4.2 [facility]; [facility] Work Phone: Comment on above: Order Comment: 'TROP ' Serial specimen #1, #2 or #3: 3 Performed By: #### L [id number] #### [facility] [address] [place] [address], [id number] (381) T PROT 6.6 g/dL Normal 6.4-8.2 [facility]; [facility] Work Phone: Comment on above: Order Comment: 'TROP ' Serial specimen #1, #2 or #3: 3 Performed By: #### L [id number] #### [facility] [address] [place], [place] [address], [address] M100.678on 06-07-2024 M100.678 Pending SARS-CoV-2 (COVID 19) A Positive A INFLUENZA A Negative INFLUENZA B Negative RSV PCR Negative SARS-CoV-2 (COVID 19 PCR) Normal [facility] Comment on above: Performed By: #### L 501.4020 #### [facility] [place], [address] M8200.1000on 06-07-2024 M8200.1000 Normal Reference Range = Negative MRSA DNA Nose Ql ZAID+probe GeneXpert Instrument, PCR method MRSA PCR MRSA NEGATIVE Normal [facility] Comment on above: Performed By: #### L 501.4020 #### [facility] [address] [place], [place] [address], [address] No Panel Informationon 06-07 Absolute Lymph 1.26 {X10_3/uL} Normal 0.83 - 4.5 1 {X10_3/uL} [facility].; [facility]. Work Phone: Absolute Neut 4.2 {X10_3/uL} Normal 2.0 - 7.7 {X10_3/uL} [facility].; [facility]. Work Phone: BILIRUBIN URINE Negative Normal [facility].; [facility]. Work Phone: BUN/CRE 14.4 {RATIO} Normal 10 - 20 {RATIO} [facility].; [facility]. Work Phone: GLUCOSE, UR Normal Normal [facility].; [facility]. Work Phone: IG% 0.600 Normal 0.0 - 0.9 [facility].; [facility]. Work Phone: KETONE UR Negative Normal [facility].; [facility]. Work Phone: LEUK ESTERASE Negative Normal [facility].; [facility]. Work Phone: M100.678 See Note Normal [facility].; [facility]. Work Phone: M8200.1000 See Note Normal [facility].; [facility], [facility]. Work Phone: OCCULT BLOOD-UR 10 /ul Abnormal [facility].; [facility] Work Phone: pH UR 7.0 Normal 5.0 - 8.0 [facility]; [facility] Work Phone: PLT Normal 150 - 450 K/mm3 [facility]; [facility] Work Phone: PROT DIPSTX Negative Normal [facility]; [facility] Work Phone: RDW SD 44.9 fL Abnormal 35.1 - 43.9 fL [facility]; [facility] Work Phone: SP.GR. DIPSTX 1.010 Normal 1.002 - 1.030 [facility]; [facility] Work Phone: UROBILI Normal Normal [facility]; [facility] Work Phone: Partial Thromboplast Timeon 06-07-2024 aPTT Coag (Bld) [Time] 21.3 s Low 24.1-36.2 [facility]; [facility] Work Phone: Comment on above: Performed By: #### L 500.2500, L100.0100 #### [facility] [address] [place], [address] Prothrombin Time w/INRon INR Coag (PPP) [Relative time] 0.9 {INR} Normal [facility]; [facility] Work Phone: Comment on above: Performed By: #### L 500.2500, L100.0100 #### [facility] [address] [place], [place], [id number] PT Coag (PPP) [Time] 12.2 s Normal 11.7-14.9 [facility]; [facility] Work Phone: Comment on above: Performed By: #### L 500.2500, L100.0100 #### [facility] [address] [place], [address] Urinalysis, Completeon 06-07 EPI,SQUAMOUS 0-5 SEEN Normal 5-10 [facility]; [facility] Work Phone: Comment on above: Order Comment: 'TROP ' Serial specimen #1, #2 or #3: 1 Performed By: #### L [id number] #### [facility] [address] [place], [place], [id number] RBC 0-5 SEEN Normal 0-5 [facility]; [facility] Work Phone: Comment on above: Order Comment: 'TROP ' Serial specimen #1, #2 or #3: 1 Performed By: #### L [id number] #### [facility] [place], [place], [id number] BACTERIA 0 SEEN Normal None Seen [facility] Comment on above: Order Comment: 'TROP ' Serial specimen #1, #2 or #3: 1 Performed By: #### L 501.4020 #### [facility] [place], [place], [id number] Mucus Ql (Urine sed) 0 SEEN Normal [facility]; [facility] Work Phone: Comment on above: Order Comment: 'TROP ' Serial specimen #1, #2 or #3: 1 Performed By: #### L 501.4020 #### [facility] [address] [place], [address] WBC 0 SEEN Normal 0-5 [facility].; [facility] Work Phone: Comment on above: Order Comment: 'TROP ' Serial specimen #1, #2 or #3: 1 Performed By: #### L 501.4020 #### [facility] [address] [place], [address] CBC W/Diff, Automatedon 12-1 Absolute Lymph 0.79 X10 3/uL Low 0.83-4.51 [facility] Comment on above: Performed By: #### L 501.4020 #### [facility] [address] [place], [address] Absolute Neut 3.5 X10 3/uL Normal 2.0-7.7 [facility] Comment on above: Performed By: #### L 501.4020 #### [facility] [address] [place], [address] Basophils/100 WBC (Bld) 0.6 % Normal 0-1 E [facility].; [facility] Work Phone: Comment on above: Performed By: #### L 501.4020 #### [facility] [address] [place], [address] Eosinophils/100 WBC (Bld) 0.4 % Normal 0-5 [facility].; [facility] Work Phone: Comment on above: Performed By: #### L [id number] #### [facility] [address] [place], [address] Erythrocyte distribution width (RBC) [Ratio] 14.6 % Normal 11.6-14.6 [facility]; [facility] Work Phone: Comment on above: Performed By: #### L 501.4020 #### [facility] [address] [place], [address] (389) Hematocrit (Bld) [Volume fraction] 35.5 % Low 37-47 [facility]; [facility] Work Phone: Comment on above: Performed By: #### L 501.4020 #### [facility] [address] [place], [address] (903) Hemoglobin (Bld) [Mass/Vol] 10.5 g/dL Low 12.0-15.0 [facility]; [facility] Work Phone: Comment on above: Performed By: #### L [id number] #### [facility] [address] [place], [place], [id number] (701) IG% 0.400 Normal 0.0-0.9 [facility]; [facility] Work Phone: Comment on above: Result Comment: IG% - Immature Granulocytes (promyelocytes, myelocytes and metamyelocytes) > 1% indicates that a LEFT SHIFT is Present. Performed By: #### L [id number] #### [facility] [address] [place], [place], [phone] (962 Lymphocytes/100 WBC (Bld) 14.9 % Low 19-41 [facility]; [facility] Work Phone: Comment on above: Performed By: #### L 501.4020 #### [facility] [address] [place], [id number] (408) MCH (RBC) [Entitic mass] 25.5 pg Low 27.0-32.0 [facility]; [facility] Work Phone: Comment on above: Performed By: #### L [id number] #### [facility] [address] [place], [address] MCHC (RBC) [Mass/Vol] 29.6 g/dL Low 32-36 [facility].; [facility]. Work Phone: Comment on above: Performed By: #### L 501.4020 #### [facility] [address] [place], [place], [phone] ([address] MCV (RBC) [Entitic vol] 86.4 fL Normal 81-99 [facility].; [facility]. Work Phone: Comment on above: Performed By: #### L 501.4020 #### [facility] [address] [place], [address] Monocytes/100 WBC (Bld) 18.6 % High 0-10 [facility].; [facility]. Work Phone: Comment on above: Performed By: #### L [id number] #### [facility] [address] [place], [address] Neutrophils/100 WBC (Bld) 65.1 % Normal 47-70 [facility].; [facility] Work Phone: Comment on above: Performed By: #### L 501.4020 #### [facility] [address] [place], [address] Nucleated RBC (Bld) [#/Vol] 0 10*3/uL Normal 0-5 [facility].; [facility]. Work Phone: Comment on above: Performed By: #### L 501.4020 #### [facility] [address] [place], [address] Platelet mean volume (Bld) [Entitic vol] 8.5 fL Normal 6.2-12.0 [facility].; [facility]. Work Phone: Comment on above: Performed By: #### L 501.4020 #### [facility] [address] [place], [address] Platelets (Bld) [#/Vol] 344 10*3/uL Normal 150-450 [facility].; [facility]. Work Phone: Comment on above: Performed By: #### L 501.4020 #### [facility] [address] [place], [address] RBC (Bld) [#/Vol] 4.11 10*6/uL Low 4.2-5.4 [facility].; [facility]. Work Phone: Comment on above: Performed By: #### L 501.4020 #### [facility] [address] [place], [place], [id number] (886) RDW SD 46.4 fL High 35.1-43.9 [facility].; [facility]. Work Phone: Comment on above: Performed By: #### L [id number] #### [facility] [address] [place], [place], [address] WBC (Bld) [#/Vol] 5.3 10*3/uL Normal 4.4-11.0 [facility]; [facility] Work Phone: Comment on above: Performed By: #### L 501.4020 #### [facility] [address] [place], [place], [address] Chest PA and Lateralon 05-30 Chest PA and Lateral [facility] Services [address] [place], [place] [address] Chest PA and Lateral MR#: [id number] Acct: [id number] Name: SAPNA BULLARD Rep #: [id number] : 1940 F 84 From: Luke rodriguez MD PCP: Dr. Nicci Lemus MD Status: PRE ER Study: Chest PA and Lateral Date of Exam: 05/30/24 Exam# [id number] Ordering Dr: Blake Juarez MD [id number] STUDY: X-RAY CHEST REASON FOR EXAM: Female, 84 years old. Cough, rales left lower lobe, subjective fever TECHNIQUE: PA and lateral views of the chest. COMPARISON: Comparison is made with prior study dated August 17, 2023. FINDINGS: EKG electrodes are seen. Persistent patchy infiltrate in the lingular segment of the left upper lobe. This has progressed slightly as compared to prior study. Stable scarring in the right lung. The lungs are clear and expanded. There is no demonstrated pleural abnormality. Normal size heart. Normal mediastinum and queenie. Normal visualized pulmonary arteries. There is atherosclerotic calcification of the aortic arch with tortuosity. There is demineralization of the osseous structures. Increased kyphosis. Normal visualized ribs, clavicles, and shoulders. There is no demonstrated abnormality of the visualized soft tissue structures of the upper abdomen. RAD/Chest PA and Lateral IMPRESSION: Progressive lingular infiltrate. Electronically Signed: Luke Kumar MD at 10:38 EST , CC: Dr. Nicci Lemus MD; Dr. Blake Juarez MD Bag Tester: Signed Normal [facility] Comprehensive Metabolic Prof ilon 05-30-2024 Albumin [Mass/Vol] 3.0 g/dL Low 3.2-5.0 [facility].; [facility] Work Phone: Comment on above: Performed By: #### L 501.4020 #### [facility] [address] [facility] [place], [address] Albumin/Globulin [Mass ratio] 0.8 {ratio} Low 0.9-2.4 [facility]; [facility] Work Phone: Comment on above: Performed By: #### L 501.4020 #### [facility] [address] [place], [place], [id number] ALK P 124 U/L High 45-117 [facility]; [facility] Work Phone: Comment on above: Performed By: #### L 501.4020 #### [facility] [address] [place], [place], [address] ALT [Catalytic activity/Vol] 15 U/L Normal 13-56 [facility]; [facility] Work Phone: Comment on above: Performed By: #### L 501.4020 #### [facility] [address] [place], [place], [address] AST [Catalytic activity/Vol] 22 U/L Normal 15-37 [facility]; [facility] Work Phone: Comment on above: Performed By: #### L 501.4020 #### [facility] [address] [place], [address] Bilirubin [Mass/Vol] 0.40 mg/dL Normal 0.20-1.00 [facility]; [facility] Work Phone: Comment on above: Result Comment: For patients on eltrombopag therapy, use of Dimension [place] TBIL is not recommended. Performed By: #### L 501.4020 #### [facility] [address] [place], [place], [id number] BUN/CRE 13.4 RATIO Normal 10-20 [facility] Comment on above: Performed By: #### L 501.4020 #### [facility] [address] [place], [id number] CA,Total 8.9 mg/dL Normal 8.5-10.1 [facility] Comment on above: Performed By: #### L 501.4020 #### [facility] [address] [place], [id number] (250) Chloride [Moles/Vol] 105 mmol/L Normal 98-107 [facility]; [facility] Work Phone: Comment on above: Performed By: #### L 501.4020 #### [facility] [address] [place], [place], [address] CO2 [Moles/Vol] 27.0 mmol/L Normal 21.0-32.0 [facility]; [facility] Work Phone: Comment on above: Performed By: #### L 501.4020 #### [facility] [address] [place], [place], [address] Creatinine [Mass/Vol] 1.12 mg/dL High 0.55-1.02 [facility]; [facility] Work Phone: Comment on above: Result Comment: The validity of the calculated GFR GFRAA in patients over 70 years has not been determined. Clinical correlation is essential. Performed By: #### L 501.4020 #### [facility] [address] [place], [place], [address] EST GFR - AA 60 mL/min Normal >60 [facility]; [facility] Work Phone: Comment on above: Result Comment: Afri can [facility] GFR Calc Performed By: #### L 501.4020 #### [facility] [address] [place], [place], [address] GAP 5 Normal 5-15 [facility]; [facility] Work Phone: Comment on above: Performed By: #### L [id number] #### [facility] [address] [place] [place], [address] GFR/1.73 sq M.predicted among non-blacks MDRD (S/P/Bld) [Vol rate/Area] 49 mL/min/{1.73_m2} Low >60 [facility]; [facility] Work Phone: Comment on above: Result Comment: Non- GFR Calc Performed By: #### L 501.4020 #### [facility] [address] [place], [id number] (219) Globulin (S) [Mass/Vol] 3.9 g/dL Normal 2.2-4.2 [facility].; [facility] Work Phone: Comment on above: Performed By: #### L 501.4020 #### [facility] [address] [place], [phone] (556) Glucose [Mass/Vol] 108 mg/dL High 74-106 [facility].; [facility] Work Phone: Comment on above: Result Comment: Fast ing Glucose result from 100 to 125 mg/dL suggests IMPAIRED HOMEOSTASIS per A.D.A. criteria. Performed By: #### L 501.4020 #### [facility] [address] [place], [place], [phone] (923) Potassium [Moles/Vol] 3.5 mmol/L Normal 3.5-5.1 [facility].; [facility] Work Phone: Comment on above: Performed By: #### L 501.4020 #### [facility] [address] [place], [address] Sodium [Moles/Vol] 137 mmol/L Normal 136-145 [facility].; [facility]. Work Phone: Comment on above: Performed By: #### L 501.4020 #### [facility] [address] [place], [address] T PROT 6.9 g/dL Normal 6.4-8.2 [facility]; [facility] Work Phone: Comment on above: Performed By: #### L 501.4020 #### [facility] [address] [place], [place], [address] Urea nitrogen [Mass/Vol] 15 mg/dL Normal 7-18 [facility]; [facility] Work Phone: Comment on above: Performed By: #### L 501.4020 #### [facility] [address] [facility] [place], [place], [address] Emergency Department Summary on 05-30-2024 Emergency Department Summary [facility] Medical Records Department [address] [place] [id number] Emergency Department Summary 05/30/24 MR#: [id number] Acct: [id number] Name: SAPNA BULLARD Rep #: [id number] : 1940 84 From: Blake Juarez MD PCP: Dr. Nicci Lemus MD Status:REG ER Location: ED HPI History of Present Illness Chief Complaint: Edema Detail of Chief Complaint: Edema. Son is concerned because of increased confusion and frequency Informant: family Onset/Context/Timing Onset: Yesterday Context: Sudden Onset Timing: Continuous Quality: Swelling has been present for several days. Patient sitting more than norm Current Severity: Worse per son otherwise unable to quantitate or qualitative Maximum Severity: Unable to determine Worsened by: unable to determine Relieved by: Unable to determine Associated Symptoms Associated Symptoms: Slight cough per son. Narrative Narrative: Patient is an 84-year-old woman with history dementia who sees Dr. Curtis. Office records were reviewed. Patient essentially denies everything. The primary informant was the son. He states she had a change in her confusion yesterday. She has had slight cough and apparently has been urinating more. Patient attempted to give specimen was unable. Prior similar symptoms: Yes (When she has a urinary tract infection) Recent Illness/Hospitalizati on: No PFSH PFSH Medical History Dementia Essential tremor Restless leg syndrome Wears hearing aid in both ears Anxiety Former smoker Hypertension Cognitive decline Chronic low back pain Fracture of left humerus History of ovarian cyst Hyperlipemia History of wrist fracture GERD (gastroesophageal reflux disease) Osteoporosis Acid reflux Anemia Home Medications ???Medication ???Instructions ???Recorded ???Last Taken ???Type tramadol 50 mg tablet 50 mg PO Q8H PRN Pain 02/11/22 Unknown History acetaminophen 325 mg tablet 650 mg (2 x 325 mg) PO Q4H PRN PRN 04/23/23 Unknown Rx Fever, pain 1-03/24 #30 tabs food supplemt, lactose-reduced 120 ml PO 4X/DAY #0 mL 04/23/23 Unknown Rx 0.08 gram-1.5 kcal/mL oral liquid (Ensure Plus High Protein) menthol 0.44 %-zinc oxide 20.6 % 1 applic topical 4X/DAY #0 grams 04/23/23 Unknown Rx topical ointment (Calmoseptine) sennosides 8.6 mg-docusate sodium 2 tab PO BID PRN PRN Constipation 04/23/23 Unknown Rx 50 mg tablet (Stool #0 tabs Softener-Stimulant Laxative) tramadol 50 mg tablet 50 mg PO Q8H PRN PRN Pain Score 04/23/23 Unknown Rx 4-10 #60 tabs calcium 250 mg (as 1 tab PO TID Supplement #90 tabs 01/20/24 Unknown Rx citrate)-vitamin D3 5 mcg (200 unit) tablet cholecalciferol (vitamin D3) 25 25 mcg PO DAILY #30 tabs 01/20/24 Unknown Rx mcg (1,000 unit) tablet (Vitamin D3) donepezil 10 mg tablet 10 mg PO QHS #30 tabs 01/20/24 Unknown Rx memantine 10 mg tablet 10 mg PO BID #60 tabs 01/20/24 Unknown Rx mirtazapine 7.5 mg tablet 7.5 mg PO QHS #30 tabs 01/20/24 Unknown Rx pramipexole 0.5 mg tablet 0.5 mg PO QHS #30 tabs 01/20/24 Unknown Rx propranolol 20 mg tablet 20 mg PO .COMPLEX #120 tabs 02/23/24 Unknown Rx cephalexin 500 mg capsule 500 mg PO Q6 #28 CAPSULES 05/30/24 Unknown Rx Allergy/AdvReac Type Severity Reaction Status Date / Time No Known Allergies Allergy Verified 05/30/24 09:28 Family History Grandmother Colon cancer Father Colon cancer Heart disease Brother Colon cancer Heart disease Mother Heart disease High cholesterol Surgical History History of orthopedic surgery History of hip surgery History of carpal tunnel surgery of left wrist Social History household members: none Smoking Status: Former smoker how long ago did patient quit smokin second hand exposure: No alcohol intake: never substance use type: does not use what type of physical activity do you participate in: other details: PT frequency: 1-2 times per week herrera/mandaen: [employer] seatbelt use: always ROS ROS ED Review of Systems ROS Unobtainable: due to mental status and other Details: Review of systems limited to what is documented HPI narrative per son. As noted the son is the primary informant since patient has dementia and is not forthcoming per son. EXAM Physical Exam Const Vital Signs: 05/30/24 09:25 05/30/24 09:27 05/30/24 10:27 Temperature 98.1 F 98.1 F 98.4 F Temperature Source Temporal Temporal Oral Pulse Rate 55 L 62 48 L Respiratory Rate 16 15 18 Blood Pressure 124/70 H 124/70 H 139/59 H Blood Pressure Mean 88 88 85 Pulse Ox 97 97 95 Oxygen Delivery Method Room Air Room Air Room Air (more content not included)... Normal [facility] - Chemistry and C hemistry - challengeon 05-30-2024 Magnesium [Mass/Vol] 30 mg/dL Abnormal [facility].; [facility] Center[facility]. Work Phone: Magnesium [Mass/Vol] 8.9 mg/dL Normal 8.5 - 1 0.1 mg/dL [facility].; [facility] CenterSageFire Work Phone: Laboratory - Microbiology an d Antimicrobial susceptibilityon 05-30-2024 Bacteria identified Cx Nom (Unsp spec) 1+ Normal [facility].; [facility]. Work Phone: Laboratory - Specimen inform ationon 05-30-2024 Clarity (U) Clear Normal [facility].; [facility]. Work Phone: Color (U) Yellow Normal [facility].; [facility]. Work Phone: Laboratory - Urinalysison Nitrite Ql (U) Negative Normal [facility].; [facility]. Work Phone: Lactic Acidon 05-30-2024 Lactate [Moles/Vol] 1.6 mmol/L Normal 0.4-1.9 [facility].; [facility]. Work Phone: Comment on above: Order Comment: 'TROP ' Serial specimen #1, #2 or #3: 3 Performed By: #### L [id number] #### [facility] [address] [place] [address], [address] No Panel Informationon 05-30 Absolute Lymph 0.79 {X10_3/uL} Abnormal 0.83 - 4.5 1 {X10_3/uL} [facility].; [facility], [facility]. Work Phone: Absolute Neut 3.5 {X10_3/uL} Normal 2.0 - 7.7 {X10_3/uL} [facility].; [facility], [employer]. Work Phone: BILIRUBIN URINE Negative Normal [facility].; [facility]. Work Phone: BUN/CRE 13.4 {RATIO} Normal 10 - 20 {RATIO} [facility].; [facility]. Work Phone: GLUCOSE, UR Normal Normal [facility].; [facility]. Work Phone: KETONE UR Negative Normal [facility].; [facility]. Work Phone: LEUK ESTERASE Negative Normal [facility].; [facility]. Work Phone: OCCULT BLOOD-UR Negative Normal [facility].; [facility]. Work Phone: pH UR 6.5 Normal 5.0 - 8.0 [facility].; [facility]. Work Phone: SP.GR. DIPSTX 1.010 Normal 1.002 - 1.030 [facility].; [facility]. Work Phone: UROBILI Normal Normal [facility].; [facility]. Work Phone: Urinalysis, Completeon 05-30 Mucus Ql (Urine sed) RARE Normal [facility].; [facility]. Work Phone: Comment on above: Order Comment: 'TROP ' Serial specimen #1, #2 or #3: 3 Performed By: #### L [id number] #### [facility] [address] [place], [address] BACTERIA 1+ /hpf Normal None Seen [facility] Comment on above: Order Comment: 'TROP ' Serial specimen #1, #2 or #3: 3 Performed By: #### L [id number] #### [facility] [address] [place], [place], [address] [phone] EPI,SQUAMOUS 0-5 SEEN Normal 5-10 [facility].; [facility]. Work Phone: Comment on above: Order Comment: 'TROP ' Serial specimen #1, #2 or #3: 3 Performed By: #### L [id number] #### [facility] [address] [place], [place], [id number] WBC 0-5 SEEN Normal 0-5 [facility].; [facility]. Work Phone: Comment on above: Order Comment: 'TROP ' Serial specimen #1, #2 or #3: 3 Performed By: #### L [id number] #### [facility] [address] [place], [place], [address] RBC 0 SEEN Normal 0-5 [facility].; [facility]. Work Phone: Comment on above: Order Comment: 'TROP ' Serial specimen #1, #2 or #3: 3 Performed By: #### L [id number] #### [facility] [address] [place], [place], [address] OPERATIVE PROCEDURESon 02-15 OPERATIVE PROCEDURES [facility] OPERATIVE REPORT NAME ACCOUNT SEX AGE ADMIT DISCHARGE PT MED. RECORD# NUMBER DATE DATE TYPE SAPNA BULLARD [id number] F 84 02/05/24 2 [id number] ROOM: [facility] DATE OF : 1940 DICTATING PHYSICIAN: Marcos White DATE OF PROCEDURE: February 05, 2024 SURGEON: Marcos White DO ELECTRONIC DEVELOPMENT TECHNICIAN: None. ANESTHETIC: Local. PRE-PROCEDURE DIAGNOSES: (1) Lumbar radiculitis/M54.16. (2) Degenerative lumbar disc disease. (3) Scoliosis. POST-PROCEDURE DIAGNOSES: (1) Lumbar radiculitis/M54.16. (2) Degenerative lumbar disc disease. (3) Scoliosis. PROCEDURE PERFORMED: Lumbar epidural with fluoroscopy. COMPLICATIONS: None. ESTIMATED BLOOD LOSS: None. INTRAVENOUS FLUIDS: None. INDICATIONS: This is an 84-year-old female with severe low back and radicular pain refractory to medications. At her last visit, she had some insomnia after the procedure, so we decided to lower the Kenalog to 40 mg today, and she agrees to the risks and benefits of the procedure. DESCRIPTION OF PROCEDURE: This 84-year-old female was taken to the operating room and was placed in the sitting position. Under sterile prep of the lumbar spine, a local was given at the L4-5 interspace, identified via fluoroscopic views. An 18-gauge Tuohy needle was placed midline into the epidural space via loss of resistance with air. After appropriate confirmation and negative aspiration, Omnipaque 240, 0.25 mL was injected, showing good spread of the dye in the epidural space. This was followed by Kenalog 40 mg and preservative-free saline 3 mL. The needle was then removed intact. Page 1 of 2 SAPNA BULLARD Operative Report SAPNA BULLARD : 1940 The patient was transferred to ambulatory surgery in satisfactory condition. Dictated By: Marcos White DO 02/05/24 12:03 JOB #: [id number] Transcribed By: tim 02/05/24 12:27 Electronically signed by: E-SIGN: MARCOS WHITE 02/16/24 07:40 Page 2 of 2 SAPNA BULLARD Operative Report Normal [facility] C-ARM USAGE 1 HOURon 024 C-ARM USAGE 1 HOUR [place] [address] Patient: SAPNA BULLARD. Phone#: : 1940 Age: 84 Gender: F Pt. Type: Out Account: [id number] Location: [facility] Ordering: MARCOS WHITE Exam Date: 02/05/2024/11:01 Family Phys: NICCI LEMUS Charge Code: [id number] Physician: [place] Order #: [id number] Dose#: PROCEDURE: C-ARM USEAGE 1 HR COMPARISON: [facility], , C-ARM USEAGE 1 HR, 10/08/2023, 8:09. INDICATIONS: Pain. TOTAL DOSE: .5 mGy Time: 2.9 seconds FINDINGS: IMAGES: Single Intraoperative spot image of the lumbar spine BONES: Intraoperative spot image of the lumbar spine for needle localization. Single needles identified. OTHER: Negative. CONCLUSION: 1. Intraoperative spot image of the lumbar spine for needle localization Dictated by: Ana María Alston MD on 02/05/2024 at 16:02 Approved by: Ana María Alston MD on 02/05/2024 at 16:03 Normal [facility] Neurology Visit Reporton Neurology Visit Report [facility] [address] [facility], [place] [address] OFFICE VISIT Date of Service: 01/19/24 MR#: [id number] Acct: [id number] Name: SAPNA BULLARD Rep #: [id number] : 1940 Provider: Dr. Vish josé MD Age/Sex: 84/F Location: [facility]. Status: Signed with Addenda ADDENDUM by Dr. Vish Cook MD on 02/23/24 at 1620 Addendum Addendum (02/23/2024): The patient is experiencing weakness and generalized sluggishness after increasing her dose of propranolol to 40 mg 3 times daily. Pharmacy records indicate that she had previously been taking propranolol 40 mg every morning, 20 mg every noon and 20 mg every 5 PM. I will have her reduce her dose of propranolol back to 20 mg 2 tablets every morning, 1 tablet every noon and 1 tablet q5 p.m. 02/23/24 1620 Date Vish Cook MD cc: Dr. Nicci Lemus MD * Signed HPI HPI Details: Interim History: Juan Miguel returns for follow-up visit. She has a history of essential tremor and restless leg syndrome. She is accompanied by her son. Since 2021, she has been observed to exhibit memory difficulty. She has had difficulty managing her bills. She has had word finding difficulty. She has had confusion regarding dates and times. She has a tendency to forget and repeat conversations and has had poor recall of recent events. She was living independently however in November 2021 she had a urinary tract infection and had worsening of her cognitive status at that time and was hospitalized. She has exhibited easy irritability and anger. Following her hospitalization she was transferred to a memory care unit at an assisted living facility. She was started on donepezil during her hospitalization and exhibited some initial improvement in her cognitive status and had further initial improvement of her cognitive status following addition of memantine in 2021. She subsequently returned home and receives some home health services and her son assists her with medication management. She has had further cognitive decline within recent months. She takes pramipexole nightly for restless leg syndrome and this is well controlled. Propranolol 40 mg every morning and 40 mg every noon and 20mg every 5 PM has been of modest benefit for her essential tremor however she continues to experience functional impairment due to her tremor. She is tolerating the medication well however her tremor continues to be prominent at times and interferes with activities such as sewing. Primidone 50 mg 1/2 tablet daily caused worsened memory. Her B12 level was noted to be near the low end of the normal range. She previously had fatigue and received a B12 1000mcg IM injection however it is unclear whether she noted any benefit with this. She has had urinary urgency and cough induced urinary incontinence. She has had some anxiety. She has had occasional insomnia but generally sleeps well at night. Her son reports that exacerbations of her insomnia do occur for a period of several weeks after receiving lumbar epidural steroid injections. She takes mirtazapine. She was hospitalized in December 2022 for a urinary tract infection with which she had an encephalopathy. She was prescribed quetiapine for a short period of time for treatment of insomnia. A head MRI in December 2021 revealed moderate diffuse cerebral atrophy and mild to moderate bilateral periventricular and subcortical white matter chronic small vessel ischemic disease. She does not have any history of symptomatic lateralizing stroke. She has chronic bilateral hearing loss and uses hearing aids. She obtained a masters degree. She has a history of osteoporosis and vitamin D deficiency. She takes calcium and vitamin D supplements. Mini-mental status exam score was 25/30 in January 2022 and 25/30 in June 2022. She was treated with a course of amoxicillin/clavulana te in August 2023 for pneumonia. Physical Exam: Neuro: The patient is awake; she is bradyphrenic; Mini-Mental status exam score is 23/30 and moderate tremors noted in the hands when arms are extended; no rigidity is noted in the wrist; gait is slow; she uses a cane Neck: no bruits Heart: regular rate and rhythm Supplemental Info Cervical spine CT (12/10/2021): FINDINGS: ALIGNMENT: Subluxation of the C1 on C2 articular facets measuring up to 4 mm. VERTEBRAL BODIES: No fracture or acute abnormality. DISC SPACES: Multilevel degenerative changes worst between C4 and C7 with intervertebral disc space narrowing contributing to mild spinal canal and neuroforaminal narrowing. POSTERIOR ELEMENTS: Normal. SPINAL CANAL: Normal. PARASPINAL SOFT TISSUES: Normal. LUNG APICES: Visualized portions normal. OTHER: None. IMPRESSION: No acute fracture. Subluxation of the C1 on C2 articular facets measuring up to 4 mm, likely due to head positioning. These (more content not included)... Normal [facility] C-ARM USAGE 1 HOUR 024 C-ARM USAGE 1 HOUR [place] [id number] Patient: SAPNA BULLARD Phone#: : 1940 Age: 83 Gender: F Pt. Type: Out Account: [id number] Location: 062 Ordering: MARCOS WHITE Exam Date: 10/08/2023/8:09 Family Phys: NICCI LEMUS Charge Code: [id number] Physician: [place] Order #: [id number] Dose#: PROCEDURE: C-ARM USEAGE 1 HR COMPARISON: [facility], , C-ARM USEAGE 1 HR, 07/03/2023, 11:31. INDICATIONS: Pain procedure. TOTAL DOSE: .06 mGy FINDINGS: IMAGES: BONES: Normal. No significant arthropathy or acute abnormality. SOFT TISSUES: Negative. No visible soft tissue swelling. EFFUSION: None visible. OTHER: Dorsal spinal needle is present at the lumbar level. CONCLUSION: 1. Dorsal spinal needle is present at the lumbar level. Dictated by: Danitza Richardson MD on 10/08/2023 at 14:11 Approved by: Danitza Richardson MD on 10/08/2023 at 14:34 Normal [facility] OPERATIVE PROCEDURESon 10-07 OPERATIVE PROCEDURES [facility] OPERATIVE REPORT NAME ACCOUNT SEX AGE ADMIT DISCHARGE PT MED. RECORD# NUMBER DATE DATE TYPE JUAN MIGUEL SAPNA Russell [id number] F 83 10/08/23 10/08/23 2 [id number] [facility] DATE OF : 1940 DICTATING PHYSICIAN: Marcos White DATE OF PROCEDURE: October 08, 2023 SURGEON: Marcos White DO ELECTRONIC DEVELOPMENT TECHNICIAN: None. ANESTHETIC: Local. PRE-PROCEDURE DIAGNOSES: (1) Lumbar radiculitis/M54.16. (2) Lumbosacral radiculitis/M54.17. POST-PROCEDURE DIAGNOSES: (1) Lumbar radiculitis/M54.16. (2) Lumbosacral radiculitis/M54.17. PROCEDURE PERFORMED: Lumbar epidural with fluoroscopy. COMPLICATIONS: None. ESTIMATED BLOOD LOSS: None. INTRAVENOUS FLUIDS: None. INDICATIONS: This is an 83-year-old female with severe low back and radicular pain refractory to medications. She agrees to the risks and benefits of the procedure. DESCRIPTION OF PROCEDURE: This 83-year-old female was taken to the operating room and was placed in the sitting position. Under sterile prep of the lumbar spine, a local was given at the L3-4 interspace, identified via fluoroscopic views. An 18-gauge Tuohy needle was placed midline into the epidural space via loss of resistance with air. After appropriate confirmation and negative aspiration, Omnipaque 240, 0.25 mL was injected, showing good spread of the dye in the epidural space. The x-ray was not a true lateral, but the spread was easy. There was no spinal fluid noted. Once again, following negative aspiration, Kenalog 80 mg with preservative-free saline 3 mL was Page 1 of 2 SAPNA BULLARD Operative Report SAPNA BULLARD : 1940 then injected through the needle. The needle was then removed intact. Dictated By: Marcso White DO 10/08/23 09:12 JOB #: [id number] Transcribed By: tim 10/08/23 11:47 Electronically signed by: E-SIGN: MARCOS WHITE 10/08/23 12:37 Page 2 of 2 JUAREZBRYCE SAPNA Drew Operative Report Normal [facility] Automated blood erythrocyte count (number/volume)Ordered By: Vish Cook on 08-17-2023 RBC (Bld) [#/Vol] 4.32 10*6/uL Normal 4.2 - 5.4 {M/mm3} [facility] Automated blood hematocrit ( percentage)Ordered By: Vish Cook on 08-17-2023 Hematocrit (Bld) [Volume fraction] 37.9 % Normal 37 - 47 [facility] Basophil percentageOrdered B y: Vish Cook on 08-17-2023 Bilirubin [Mass/Vol] 0.30 mg/dL Normal 0.20 - 1.00 mg/dL [facility] Comment on above: For patients on eltr ombopag therapy, use of Dimension [place] TBIL is not recommended. Chloride [Moles/Vol] 104 mmol/L Normal 98 - 10 7 mmol/L [facility] Glucose [Mass/Vol] 92 mg/dL Normal 74 - 106 mg/dL [facility] Hemoglobin (Bld) [Mass/Vol] 11.7 g/dL Abnormal 12.0 - 15.0 g/dL [facility] Potassium [Moles/Vol] 3.9 mmol/L Normal 3.5 - 5.1 mmol/L [facility] Protein [Mass/Vol] 7.2 g/dL 6.4-8.2 [facility] Sodium [Moles/Vol] 138 mmol/L Normal 136 - 145 mmol/L [facility] WBC (Bld) [#/Vol] 11.0 10*3/uL Normal 4.4 - 11.0 K/mm3 [facility] Determination of erythrocyte mean corpuscular volume (MCV)Ordered By: Vish Cook on 08-17-2023 MCV (RBC) [Entitic vol] 87.7 fL Normal 81 - 99 fL [facility] Erythrocyte distribution wid th ratioOrdered By: Vish Cook on 08-17-2023 Erythrocyte distribution width (RBC) [Ratio] 14.7 % Abnormal 11.6 - 14.6 [facility] Erythrocyte distribution wid th standard deviationOrdered By: Vish Cook on 08-17-2023 Erythrocyte distribution width (RBC) [Entitic vol] 47.1 fL 35.1-43.9 [facility] - Chemistry and C hemistry - challengeon 08-17-2023 Albumin [Mass/Vol] 3.0 g/dL Abnormal 3.2 - 5.0 g/dL [facility]; [facility] Work Phone: AST [Catalytic activity/Vol] 19 U/L Normal 15 - 37 U/L [facility]; [facility] Work Phone: GFR/1.73 sq M.predicted among non-blacks MDRD (S/P/Bld) [Vol rate/Area] 59 mL/min/{1.73_m2} Abnormal [facility] Care[facility]; [facility] Work Phone: Magnesium [Mass/Vol] 9.9 mg/dL Normal 8.5 - 1 0.1 mg/dL [facility]; [facility] Work Phone: Laboratory - Chemistry and C hemistry - challengeOrdered By: Vish Cook on 08-17-2023 Albumin/Globulin [Mass ratio] 0.7 {ratio} Abnormal 0.9 - 2.4 {RATIO} [facility] ALP [Catalytic activity/Vol] 138 U/L 45-117 [facility] ALT [Catalytic activity/Vol] 17 U/L Normal 13 - 56 U/L [facility] CO2 [Moles/Vol] 29.0 mmol/L Normal 21.0 - 32.0 mmol/L [facility] Globulin (S) [Mass/Vol] 4.2 g/dL Normal 2.2 - 4.2 g/dL [facility] Urea nitrogen/Creatinine [Mass ratio] 17.8 mg/mg 10-20 [facility] - Hematology and Cell countsOrdered By: Vish Cook on 08-17-2023 MCH (RBC) [Entitic mass] 27.1 pg Normal 27. 0 - 32.0 pg [facility] MCHC (RBC) [Mass/Vol] 30.9 g/dL Abnormal 32 - 36 g/dL [facility] Platelet mean volume (Bld) [Entitic vol] 8.6 fL Normal 6.2 - 12.0 fL [facility] Platelets (Bld) [#/Vol] 440 10*3/uL Normal 150 - 450 K/mm3 [facility] No Panel Informationon 08-16 ALK P 138 U/L Abnormal 45 - 117 U/L [facility] CenterS[facility]; [facility] Work Phone: BUN/CRE 17.8 {RATIO} Normal 10 - 20 {RATIO} [facility] CenterS[facility]; [facility]SEL[facility]ERR[facility] [employer] [facility] Center[facility] Work Phone: EST GFR - AA 72 mL/min Normal [facility]; [facility] Work Phone: GAP 5 Normal 5 - 15 [facility]; [facility]ERR[facility] [employer] [facility] Work Phone: RDW SD 47.1 fL Abnormal 35.1 - 43.9 fL [facility]; [facility]IT[facility]mind[facility] Work Phone: T PROT 7.2 g/dL Normal 6.4 - 8.2 g/dL [facility]; [facility]IT[facility]mind[facility]K [facility] [employer] Work Phone: No Panel InformationOrdered By: Vish Cook on 08-17-2023 Estimated GFR (MDRD) Amer 72 mL/min >60 [facility] Comment on above: GFR Calc Estimated GFR (MDRD) Non-Af Amer 59 mL/min >60 [facility] Comment on above: Non- GFR Calc Serum or plasma calcium candice urement (mass/volume)Ordered By: Vish Cook on 08-17-2023 Calcium [Mass/Vol] 9.9 mg/dL 8.5-10.1 [facility] Serum or plasma creatinine m easurement (mass/volume)Ordered By: Vish Cook on 08-17-2023 Creatinine [Mass/Vol] 0.96 mg/dL Normal 0.55 - 1.02 mg/dL [facility] Comment on above: The validity of the calculated GFR & GFRAA in patients over 70 years has not been determined. Clinical correlation is essential. Serum or plasma urea nitroge n measurement (mass/volume)Ordered By: Vish Cook on 08-17-2023 Urea nitrogen [Mass/Vol] 17 mg/dL Normal 7 - 18 mg/d L [facility] Thin prep Papanicolaou smear with manual screeningOrdered By: Vish Cook on 08-17-2023 Thin prep Papanicolaou smear with manual screening 3.0 g/dL 3.2-5.0 [facility] Thin prep Papanicolaou smear with manual screening 19 U/L 15-37 [facility] Thin prep Papanicolaou smear with manual screening 5 5-15 [facility] Basophil percentageOrdered B y: Vish Cook on 08-14-2023 Basophil percentage 0 SEEN /hpf 0-5 [facility] Bilirubin Test strip Ql (U)O rdered By: Vish Cook on 08-14-2023 Bilirubin Ql (U) Negative Negative [facility] Culture, urineOrdered By: Ra destinee Cook on 08-14-2023 Bacteria identified Cx Nom (U) Culture exhibits no growth. [facility] Ketones Test strip Ql (U)Ord ered By: Vish Cook on 08-14-2023 Ketones Ql (U) Negative Negative [facility] - Microbiology an d Antimicrobial susceptibilityon 08-14-2023 Bacteria identified Cx Nom (Unsp spec) 0 SEEN Normal [facility]; [facility] Work Phone: Laboratory - Urinalysison Mucus Ql (Urine sed) 0 SEEN Normal [facility] CenterLit[facility].; [facility], [employer]. Work Phone: Mucus LM Ql (Urine sed)Order ed By: Vish Cook on 08-14-2023 Mucus Ql (Urine sed) 0 SEEN /hpf [facility] Nitrite ur dipstickOrdered B y: Vish Laimaddison on 08-14-2023 Nitrite Ql (U) Negative Normal [facility] No Panel InformationOrdered By: Vish Enriquezdashawn on 08-14-2023 Urine RBC 0 SEEN /hpf 0-5 [facility] No Panel Informationon 08-13 BILIRUBIN URINE Negative Normal [facility].; [facility], [employer]. Work Phone: EPI,SQUAMOUS 0 SEEN Normal 5 - 10 {/hpf} [facility] CenterLit[facility].; [facility]Bridge [employer] [facility], [employer]. Work Phone: GLUCOSE, UR Normal Normal [facility].; [facility]. Work Phone: KETONE UR Negative Normal [facility].; [facility], [employer]. Work Phone: LEUK ESTERASE Negative Normal [facility].; [facility], [employer]. Work Phone: OCCULT BLOOD-UR Negative Normal [facility].; [facility]. Work Phone: pH UR 5.0 Normal 5.0 - 8.0 [facility]Just[facility]Lit[facility].; [facility], [employer]. Work Phone: PROT DIPSTX Negative Normal [facility].; [employer] [facility], [employer]. Work Phone: RBC 0 SEEN Normal 0 - 5 {/hpf} [facility] Hospital[facility]; [facility] Work Phone: SP.GR. DIPSTX 1.010 Normal 1.002 - 1.030 [facility] HospitalCol[facility]; [facility] Work Phone: URC See Note Normal [place] [facility]; [facility] Work Phone: UROBILI Normal Normal [facility]; [facility] Work Phone: WBC 0 SEEN Normal 0 - 5 {/hpf} [place] [facility]; [facility] Work Phone: Protein Test strip Ql (U)Ord ered By: Vish Cook on 08-14-2023 Protein Ql (U) Negative Negative [facility] Squamous epithelial cells de tection in urine sediment by light microscopyOrdered By: Vish Cook on 08-14-2023 Epithelial cells.squamous LM Ql (Urine sed) 0 SEEN /hpf 5-10 [facility] Urine blood detectionOrdered By: Vish Cook on 08-14-2023 RBC Ql (U) Negative Negative [facility] Urine clarityOrdered By: Vahe Cook on 08-14-2023 Clarity (U) Clear Normal [facility] Urine color determinationOrd ered By: Vish Cook on 08-14-2023 Color (U) Yellow Normal [facility] Urine glucose detectionOrder ed By: Vish Cook on 08-14-2023 Glucose Ql (U) Normal mg/dl Normal [facility] Urine leukocyte esterase det ection by dipstickOrdered By: Vish Cook on 08-14-2023 Leukocyte esterase Test strip Ql (U) Negative Negative [facility] Urine pHOrdered By: Vish Cook on 08-14-2023 pH (U) 5.0 [pH] 5.0 - 8.0 [facility] Urine sediment bacteria coun t by microscopy (number/high power field)Ordered By: Vish Cook on 08-14-2023 Bacteria LM.HPF (Urine sed) [#/Area] 0 /[HPF] None Seen [facility] Urine specific gravity measu rementOrdered By: Vish Cook on 08-14-2023 Specific gravity (U) [Rel density] 1.010 1.002-1.030 [facility] Urine urobilinogen measureme ntOrdered By: Vish Cook on 08-14-2023 Urobilinogen Ql (U) Normal mg/dl Normal [facility] Basophil percentageOrdered B y: Vish Cook on 05-25-2023 Potassium [Moles/Vol] 3.8 mmol/L Normal 3.5 - 5.1 mmol/L [facility] Absolute lymphocyte countOrd ered By: Pravin Cruz on 04-20-2023 Lymphocytes Auto (Unsp spec) [#/Vol] 1.38 10*3/uL 0.83-4.51 [facility] Automated blood hematocrit ( percentage)Ordered By: Pravin Cruz on 04-20-2023 Hematocrit (Bld) [Volume fraction] 31.2 % Abnormal 37 - 47 [facility] Basophil percentageOrdered B y: Pravin Cruz on 04-20-2023 Basophils/100 WBC (Bld) 0.3 % Normal 0 - 1 [facility] Chloride [Moles/Vol] 103 mmol/L Normal 98 - 10 7 mmol/L [facility] Eosinophils/100 WBC (Bld) 1.0 % Normal 0 - 5 [facility] Glucose [Mass/Vol] 92 mg/dL Normal 74 - 106 mg/dL [facility] Neutrophils (Bld) [#/Vol] 5.2 10*3/uL 2.0-7.7 [facility] Neutrophils/100 WBC (Bld) 65.0 % Normal 47 - 70 [facility] Potassium [Moles/Vol] 3.2 mmol/L Abnormal 3.5 - 5.1 mmol/L [facility] Sodium [Moles/Vol] 135 mmol/L Abnormal 136 - 145 mmol/L [facility] WBC (Bld) [#/Vol] 8.0 10*3/uL Normal 4.4 - 11.0 K/mm3 [facility] Blood erythrocytes count (nu mber/volume)Ordered By: Pravin Cruz on 04-20-2023 RBC (Bld) [#/Vol] 3.61 10*6/uL Abnormal 4.2 - 5.4 {M/mm3} [facility] Blood hemoglobin measurement (mass/volume)Ordered By: Pravin Cruz on 04-20-2023 Hemoglobin (Bld) [Mass/Vol] 10.0 g/dL Abnormal 12.0 - 15.0 g/dL [facility] Blood lymphocytes/100 leukoc ytesOrdered By: Pravin Cruz on 04-20-2023 Lymphocytes/100 WBC (Bld) 17.3 % Abnormal 19 - 41 [facility] Blood monocytes/100 leukocyt esOrdered By: Pravin Cruz on 04-20-2023 Monocytes/100 WBC (Bld) 16.0 % Abnormal 0 - 10 [facility] Blood platelet mean volumeOr dered By: Pravin Cruz on 04-20-2023 Platelet mean volume (Bld) [Entitic vol] 9.1 fL Normal 6.2 - 12.0 fL [facility] Determination of erythrocyte mean corpuscular volume (MCV)Ordered By: Pravin Cruz on 04-20-2023 MCV (RBC) [Entitic vol] 86.4 fL Normal 81 - 99 fL [facility] Laboratory - Chemistry and C hemistry - challengeon 04-20-2023 GFR/1.73 sq M.predicted among non-blacks MDRD (S/P/Bld) [Vol rate/Area] 71 mL/min/{1.73_m2} Normal [place] [facility].; [facility]. Work Phone: Magnesium [Mass/Vol] 8.2 mg/dL Abnormal 8.5 - 1 0.1 mg/dL [place] [facility].; [facility]. Work Phone: Laboratory - Chemistry and C hemistry - challengeOrdered By: Pravin Cruz on 04-20-2023 CO2 [Moles/Vol] 25.0 mmol/L Normal 21.0 - 32.0 mmol/L [facility] Urea nitrogen/Creatinine [Mass ratio] 19.6 mg/mg 10-20 [facility] Laboratory - Hematology and Cell countson 04-20-2023 Nucleated RBC (Bld) [#/Vol] 0 10*3/uL Normal 0 - 5 [facility]; [facility] Work Phone: Laboratory - Hematology and Cell countsOrdered By: Pravin Cruz on 04-20-2023 Erythrocyte distribution width (RBC) [Entitic vol] 42.5 fL 35.1-43.9 [facility] Erythrocyte distribution width (RBC) [Ratio] 13.4 % Normal 11.6 - 14.6 [facility] Immature granulocytes/100 WBC (Bld) 0.400 % 0.0-0.9 [facility] Comment on above: IG% - Immature Granu locytes (promyelocytes, myelocytes and metamyelocytes) > 1% indicates that a LEFT SHIFT is Present. MCH (RBC) [Entitic mass] 27.7 pg Normal 27. 0 - 32.0 pg [facility] Nucleated RBC/100 WBC (Bld) [Ratio] 0 % 0-5 [facility] MCHC [Mass/volume] by Automa jose maria countOrdered By: Pravin Cruz on 04-20-2023 MCHC (RBC) [Mass/Vol] 32.1 g/dL Normal 32 - 36 g/dL [facility] No Panel Informationon 04-20 Absolute Lymph 1.38 {X10_3/uL} Normal 0.83 - 4.5 1 {X10_3/uL} [place] [facility].; [facility]. Work Phone: Absolute Neut 5.2 {X10_3/uL} Normal 2.0 - 7.7 {X10_3/uL} [place] [facility].; [facility]. Work Phone: BUN/CRE 19.6 {RATIO} Normal 10 - 20 {RATIO} [facility].; [facility]. Work Phone: ECRCL 41.00 ml/min Normal [place] [facility].; [facility]. Work Phone: EST GFR - AA 86 mL/min Normal [place] [facility].; [facility]. Work Phone: GAP 7 Normal 5 - 15 [place] [facility].; [facility]. Work Phone: IG% 0.400 Normal 0.0 - 0.9 [place] [facility]; [employer] [facility] Work Phone: RDW SD 42.5 fL Normal 35.1 - 43.9 fL [place] [facility].; [facility] Work Phone: No Panel InformationOrdered By: Pravin Cruz on 04-20-2023 Estimated Creatinine Clearance Calc 41.00 ml/min [facility] Estimated GFR (MDRD) Amer 86 mL/min >60 [facility] Comment on above: GFR Calc Estimated GFR (MDRD) Non-Af Amer 71 mL/min >60 [facility] Comment on above: Non- GFR Calc Platelets bldOrdered By: Salinas Cruz on 04-20-2023 Platelets (Bld) [#/Vol] 291 10*3/uL Normal 150 - 450 K/mm3 [facility] Serum or plasma calcium candice urement (mass/volume)Ordered By: Pravin Cruz on 04-20-2023 Calcium [Mass/Vol] 8.2 mg/dL 8.5-10.1 [facility] Serum or plasma creatinine m easurement (mass/volume)Ordered By: Pravin Cruz on 04-20-2023 Creatinine [Mass/Vol] 0.82 mg/dL Normal 0.55 - 1.02 mg/dL [facility] Comment on above: The validity of the calculated GFR & GFRAA in patients over 70 years has not been determined. Clinical correlation is essential. Serum or plasma urea nitroge n measurement (mass/volume)Ordered By: Pravin Cruz on 04-20-2023 Urea nitrogen [Mass/Vol] 16 mg/dL Normal 7 - 18 mg/d L [facility] Thin prep Papanicolaou smear with manual screeningOrdered By: Pravin Cruz on 04-20-2023 Thin prep Papanicolaou smear with manual screening 7 5-15 [facility] Basophil percentageOrdered B y: Karon White on 04-17-2023 Bilirubin [Mass/Vol] 0.40 mg/dL Normal 0.20 - 1.00 mg/dL [facility] Comment on above: For patients on eltr ombopag therapy, use of Dimension [place] TBIL is not recommended. Protein [Mass/Vol] 5.8 g/dL 6.4-8.2 [facility] Culture, urineOrdered By: Do art Cohen on 04-17-2023 Bacteria identified Cx Nom (U) Presumptive E. coli [facility] Laboratory - Chemistry and C hemistry - challengeon 04-17-2023 AST [Catalytic activity/Vol] 16 U/L Normal 15 - 37 U/L [facility]; [facility] Work Phone: Chloride [Moles/Vol] 108 mmol/L Abnormal 98 - 10 7 mmol/L [facility]; [facility] Work Phone: CO2 [Moles/Vol] 25.0 mmol/L Normal 21.0 - 32.0 mmol/L [facility]; [facility] Work Phone: Creatinine [Mass/Vol] 0.88 mg/dL Normal 0.55 - 1.02 mg/dL [facility]; [facility] Work Phone: GFR/1.73 sq M.predicted among non-blacks MDRD (S/P/Bld) [Vol rate/Area] 66 mL/min/{1.73_m2} Normal [facility]; [facility] Work Phone: Glucose [Mass/Vol] 86 mg/dL Normal 74 - 106 mg/dL [facility]; [facility] Work Phone: Magnesium [Mass/Vol] 7.9 mg/dL Abnormal 8.5 - 1 0.1 mg/dL [facility]; [facility] Work Phone: Potassium [Moles/Vol] 3.8 mmol/L Normal 3.5 - 5.1 mmol/L [facility]; [facility] Work Phone: Sodium [Moles/Vol] 138 mmol/L Normal 136 - 145 mmol/L [facility]; [facility] Work Phone: Urea nitrogen [Mass/Vol] 10 mg/dL Normal 7 - 18 mg/d L [facility]; [facility] Work Phone: Laboratory - Chemistry and C hemistry - challengeOrdered By: Karon Nunes on 04-17-2023 ALP [Catalytic activity/Vol] 101 U/L 45-117 [facility] ALT [Catalytic activity/Vol] 12 U/L Abnormal 13 - 56 U/L [facility] Globulin (S) [Mass/Vol] 3.3 g/dL Normal 2.2 - 4.2 g/dL [facility] Laboratory - Hematology and Cell countson 04-17-2023 Basophils/100 WBC (Bld) 0.6 % Normal 0 - 1 [facility]; [facility] Work Phone: Eosinophils/100 WBC (Bld) 0.6 % Normal 0 - 5 [facility]; [facility] Work Phone: Erythrocyte distribution width (RBC) [Ratio] 13.3 % Normal 11.6 - 14.6 [facility]; [facility] Work Phone: Hematocrit (Bld) [Volume fraction] 32.4 % Abnormal 37 - 47 [facility]; [facility] Work Phone: Hemoglobin (Bld) [Mass/Vol] 9.9 g/dL Abnormal 12.0 - 15.0 g/dL [facility]; [facility] Work Phone: Lymphocytes/100 WBC (Bld) 13.6 % Abnormal 19 - 41 [facility]; [facility]. Work Phone: MCH (RBC) [Entitic mass] 27.3 pg Normal 27. 0 - 32.0 pg [facility]; [facility] Work Phone: MCHC (RBC) [Mass/Vol] 30.6 g/dL Abnormal 32 - 36 g/dL [facility]; [facility]. Work Phone: MCV (RBC) [Entitic vol] 89.5 fL Normal 81 - 99 fL [facility].; [facility] Work Phone: Monocytes/100 WBC (Bld) 11.3 % Abnormal 0 - 10 [facility]; [facility] Work Phone: Neutrophils/100 WBC (Bld) 73.6 % Abnormal 47 - 70 [facility]; [facility] Work Phone: Nucleated RBC (Bld) [#/Vol] 0 10*3/uL Normal 0 - 5 [facility]; [facility] Work Phone: Platelet mean volume (Bld) [Entitic vol] 9.0 fL Normal 6.2 - 12.0 fL [facility]; [facility] Work Phone: Platelets (Bld) [#/Vol] 302 10*3/uL Normal 150 - 450 K/mm3 [facility]; [facility] Work Phone: RBC (Bld) [#/Vol] 3.62 10*6/uL Abnormal 4.2 - 5.4 {M/mm3} [place] [facility]; [facility]. Work Phone: WBC (Bld) [#/Vol] 6.9 10*3/uL Normal 4.4 - 11.0 K/mm3 [facility]; [facility] Work Phone: No Panel Informationon 04-17 Absolute Lymph 0.94 {X10_3/uL} Normal 0.83 - 4.5 1 {X10_3/uL} [place] [facility]; [facility] Work Phone: Absolute Neut 5.1 {X10_3/uL} Normal 2.0 - 7.7 {X10_3/uL} [facility]; [facility] Work Phone: ALK P 101 U/L Normal 45 - 117 U/L [facility].; [facility]. Work Phone: BUN/CRE 11.4 {RATIO} Normal 10 - 20 {RATIO} [facility].; [facility]. Work Phone: ECRCL 37.44 ml/min Normal [facility].; [facility]. Work Phone: EST GFR - AA 79 mL/min Normal [facility].; [facility]. Work Phone: GAP 5 Normal 5 - 15 [facility].; [facility]. Work Phone: IG% 0.300 Normal 0.0 - 0.9 [facility].; [facility]. Work Phone: RDW SD 43.8 fL Normal 35.1 - 43.9 fL [facility].; [facility]. Work Phone: T PROT 5.8 g/dL Abnormal 6.4 - 8.2 g/dL [facility].; [facility]. Work Phone: No Panel InformationOrdered By: Karon Nunes on 04-17-2023 Streptococcus pneumoniae Antigen (M [facility] Respiratory pathogens detect ion panel by molecular detection methodOrdered By: 04-17-2023 Respiratory pathogens DNA and RNA panel ZAID+probe (Resp) [facility] Serum or plasma albumin candice urement (mass/volume)Ordered By: on 04-17-2023 Albumin [Mass/Vol] 2.5 g/dL Abnormal 3.2 - 5.0 g/dL [facility] Serum or plasma albumin/glob ulin mass ratioOrdered By: Karon White on 11-03-2023 Albumin/Globulin [Mass ratio] 0.8 {ratio} Abnormal 0.9 - 2.4 {RATIO} [facility] Thin prep Papanicolaou smear with manual screeningOrdered By: Karon Nunes on 04-17-2023 Thin prep Papanicolaou smear with manual screening 16 U/L 15-37 [facility] Urine Legionella pneumophila antigen detectionOrdered By: Karon Nunes on 04-17-2023 L. pneumophila Ag Ql (U) [facility] Basophil percentageOrdered B y: Nicholas Cohen on 04-16-2023 Basophil percentage 10-25 SEEN /hpf 0-5 [facility] Bilirubin Test strip Ql (U)O rdered By: Nicholas Cohen on 04-16-2023 Bilirubin Ql (U) Negative Negative [facility] Ketones Test strip Ql (U)Ord ered By: Nicholas Cohen on 04-16-2023 Ketones Ql (U) Negative Negative [facility] Laboratory - Chemistry and C hemistry - challengeOrdered By: Karon Nunes on 04-16-2023 Magnesium [Mass/Vol] 2.0 mg/dL Normal 1.6 - 2 .6 mg/dL [facility] Laboratory - Chemistry and C hemistry - challengeon 04-16-2023 Albumin [Mass/Vol] 3.1 g/dL Abnormal 3.2 - 5.0 g/dL [place] [facility]; [facility] Work Phone: Albumin/Globulin [Mass ratio] 0.8 {ratio} Abnormal 0.9 - 2.4 {RATIO} [facility]; [facility] Work Phone: ALT [Catalytic activity/Vol] 17 U/L Normal 13 - 56 U/L [place] [facility]; [facility] Work Phone: AST [Catalytic activity/Vol] 18 U/L Normal 15 - 37 U/L [place] [facility]; [facility] Work Phone: Bilirubin [Mass/Vol] 0.50 mg/dL Normal 0.20 - 1.00 mg/dL [facility]; [facility] Work Phone: Chloride [Moles/Vol] 101 mmol/L Normal 98 - 10 7 mmol/L [facility]; [facility] Work Phone: CO2 [Moles/Vol] 29.0 mmol/L Normal 21.0 - 32.0 mmol/L [facility]; [facility] Work Phone: Creatinine [Mass/Vol] 0.95 mg/dL Normal 0.55 - 1.02 mg/dL [facility]; [facility] Work Phone: GFR/1.73 sq M.predicted among non-blacks MDRD (S/P/Bld) [Vol rate/Area] 60 mL/min/{1.73_m2} Normal [facility]; [facility] Work Phone: Globulin (S) [Mass/Vol] 3.9 g/dL Normal 2.2 - 4.2 g/dL [facility]; [facility] Work Phone: Glucose [Mass/Vol] 100 mg/dL Normal 74 - 106 mg/dL [facility]; [facility] Work Phone: Magnesium [Mass/Vol] 15 mg/dL Abnormal [facility]; [facility] Work Phone: Magnesium [Mass/Vol] 8.7 mg/dL Normal 8.5 - 1 0.1 mg/dL [facility]; [facility] Work Phone: Potassium [Moles/Vol] 3.3 mmol/L Abnormal 3.5 - 5.1 mmol/L [facility]; [facility] Work Phone: Sodium [Moles/Vol] 135 mmol/L Abnormal 136 - 145 mmol/L [facility].; [facility] Work Phone: Urea nitrogen [Mass/Vol] 14 mg/dL Normal 7 - 18 mg/d L [facility]; [facility] Work Phone: Laboratory - Microbiology an d Antimicrobial susceptibilityon 04-16-2023 Bacteria identified Cx Nom (Unsp spec) 1+ Normal [place] [facility]; [facility] Work Phone: L. pneumophila Ag Ql (U) See Note Normal [place] [facility].; [facility]. Work Phone: Respiratory pathogens DNA and RNA 12b panel ZAID+probe (Unsp spec) See Note Normal [facility]; [facility]. Work Phone: S. pneumoniae Ag LA Ql (Unsp spec) See Note Normal [place] [facility]; [facility]. Work Phone: Laboratory - Urinalysison Mucus Ql (Urine sed) 0 SEEN Normal [place] [facility].; [facility] Work Phone: Mucus LM Ql (Urine sed)Order ed By: Nicholas Cohen on 04-16-2023 Mucus Ql (Urine sed) 0 SEEN /hpf [facility] Nitrite ur dipstickOrdered B y: Nicholas Cohen on 04-16-2023 Nitrite Ql (U) Negative Normal [facility] No Panel InformationOrdered By: Nicholas Cohen on 04-16-2023 Troponin I High Sensitivity 14 pg/mL 3.0-54.0 [facility] Comment on above: Please Note: New Shaniqua t Units and Gender Specific Reference Ranges. For more information see Policy Stat Procedure [place] High Sensitivity Troponin (TNIH) and attachments. No Panel Informationon 04-16 ALK P 117 U/L Normal 45 - 117 U/L [place] [facility]; [employer] [facility]. Work Phone: BILIRUBIN URINE Negative Normal [facility].; [facility]. Work Phone: BUN/CRE 14.7 {RATIO} Normal 10 - 20 {RATIO} [place] [facility].; [facility]. Work Phone: ECRCL 34.69 ml/min Normal [place] [facility].; [facility]. Work Phone: EPI,SQUAMOUS 0 SEEN Normal 5 - 10 {/hpf} [place] [facility].; [facility]. Work Phone: EST GFR - AA 72 mL/min Normal [place] [facility].; [employer] [facility]. Work Phone: GAP 5 Normal 5 - 15 [place] [facility].; [employer] [facility]. Work Phone: GLUCOSE, UR Normal Normal [facility].; [facility]. Work Phone: KETONE UR Negative Normal [facility].; [facility]. Work Phone: LEUK ESTERASE 500 /ul Abnormal [facility].; [facility]. Work Phone: [phone] See Note Normal [facility]; [facility]. Work Phone: OCCULT BLOOD-UR 25 /ul Abnormal [facility]; [facility] Work Phone: pH UR 7.0 Normal 5.0 - 8.0 [facility]; [facility] Work Phone: RBC 0-5 SEEN Normal 0 - 5 {/hpf} [facility]; [facility] Work Phone: SP.GR. DIPSTX 1.010 Normal 1.002 - 1.030 [facility]; [facility] Work Phone: T PROT 7.0 g/dL Normal 6.4 - 8.2 g/dL [facility]; [facility] Work Phone: TROPONIN-I HS 14 pg/mL Normal 3.0 - 54.0 pg/mL [facility]; [facility] Work Phone: URC See Note Normal [facility]; [facility] Work Phone: UROBILI Normal Normal [facility]; [facility] Work Phone: WBC 10-25 SEEN Normal 0 - 5 {/hpf} [facility]; [facility] Work Phone: Protein Test strip Ql (U)Ord ered By: Nicholas Cohen on 04-16-2023 Protein Ql (U) 15 mg/dl Negative [facility] Squamous epithelial cells de tection in urine sediment by light microscopyOrdered By: Nicholas Cohen on 04-16-2023 Epithelial cells.squamous LM Ql (Urine sed) 0 SEEN /hpf 5-10 [facility] Urine blood detectionOrdered By: Nicholas Cohen on 04-16-2023 RBC Ql (U) 25 /ul Negative [facility] RBC Ql (U) 0-5 SEEN /hpf 0-5 [facility] Urine clarityOrdered By: Geremias Cohen on 04-16-2023 Clarity (U) Sl. Cloudy Normal [facility] Urine color determinationOrd ered By: Nicholas Cohen on 04-16-2023 Color (U) Yellow Normal [facility] Urine glucose detectionOrder ed By: Nicholas Cohen on 04-16-2023 Glucose Ql (U) Normal mg/dl Normal [facility] Urine leukocyte esterase det ection by dipstickOrdered By: Nicholas Cohen on 04-16-2023 Leukocyte esterase Test strip Ql (U) 500 /ul Negative [facility] Urine pHOrdered By: Nicholas bishop on 04-16-2023 pH (U) 7.0 [pH] 5.0 - 8.0 [facility] Urine sediment bacteria coun t by microscopy (number/high power field)Ordered By: Nicholas Cohen on 04-16-2023 Bacteria LM.HPF (Urine sed) [#/Area] 1 /[HPF] None Seen [facility] Urine specific gravity measu rementOrdered By: Nicholas Cohen on 04-16-2023 Specific gravity (U) [Rel density] 1.010 1.002-1.030 [facility] Urobilinogen Auto test strip Ql (U)Ordered By: Nicholas Cohen on 04-16-2023 Urobilinogen Ql (U) Normal mg/dl Normal [facility] Culture, urineOrdered By: Julia Grigsby on 04-06-2023 Bacteria identified Cx Nom (U) GPC Poss Enterococcus sp [facility] Basophil percentageOrdered B y: Elliott Grigsby on 04-05-2023 Basophil percentage 0-5 SEEN /hpf 0-5 [facility] Comment on above: Previous reported re sult: 0 SEEN /hpfEdited by: KAMAR on 04/05/23:1616 AMENDED REPORT 04/05/23 1616 WBC previously reported as: 0 SEEN /hpf Bilirubin Test strip Ql (U)O rdered By: Elliott Grigsby on 04-05-2023 Bilirubin Ql (U) 1 mg/dL Negative [facility] Comment on above: COLOR OF URINE MAY A FFECT DIPSTICK RESULTS. Calcium oxalate crystals det ection in urine sediment by light microscopyOrdered By: Elliott Grigsby on 04-05-2023 Calcium oxalate crystals LM Ql (Urine sed) 2+ /hpf [facility] Hyaline casts LM.LPF (Urine sed) [#/Area]Ordered By: Elliott Grigsby on 04-05-2023 Hyaline casts (Urine sed) [#/Area] 0 /[LPF] 0-5 [facility] Ketones Test strip Ql (U)Ord ered By: Elliott Grigsby on 04-05-2023 Ketones Ql (U) Negative Negative [facility] Laboratory - Chemistry and C hemistry - challengeon 04-05-2023 Bilirubin Ql (U) Small (1+) [facility] Glucose Ql (U) Negative [facility] Ketones Ql (U) Small (15+) [facility] pH (U) 5.0 [pH] [facility] Specific gravity (U) [Rel density] 1.015 [facility] Urobilinogen (U) [Mass/Vol] 1 mg/dL [facility] Laboratory - Hematology and Cell countson 04-05-2023 Hemoglobin Ql (U) Negative [facility] Laboratory - Specimen inform ationon 04-05-2023 Clarity (U) Clear [facility] Color (U) Opal [facility] Laboratory - Urinalysison Nitrite Ql (U) Positive [facility] Protein Ql (U) 3+ [facility] Magnesium ammonium phosphate crystal detectionOrdered By: Elliott Grigsby on 04-05-2023 Triple phosphate crystals LM Ql (Urine sed) 0 SEEN /hpf [facility] Mucus LM Ql (Urine sed)Order ed By: Elliott Grigsby on 04-05-2023 Mucus Ql (Urine sed) 0 SEEN /hpf [facility] Nitrite Test strip Ql (U)Ord ered By: Elliott Grigsby on 04-05-2023 Nitrite Ql (U) Negative Negative [facility] No Panel InformationOrdered By: Elliott Grigsby on 04-05-2023 Urine Transitional Epithelial Cells 0 SEEN /hpf 0-5 [facility] No Panel Informationon 04-05 Urine Leukocytes Negatve [facility] Urine Non-Hemolyzed Blood [facility] Protein Test strip Ql (U)Ord ered By: Elliott Grigsby on 04-05-2023 Protein Ql (U) 30 mg/dl Negative [facility] Squamous epithelial cells de tection in urine sediment by light microscopyOrdered By: Elliott Grigsby on 04-05-2023 Epithelial cells.squamous LM Ql (Urine sed) 0-5 SEEN /hpf 5-10 [facility] Comment on above: Previous reported re sult: 0 SEEN /hpfEdited by: KAMAR on 04/05/23:1616 AMENDED REPORT 04/05/23 1616 SQUAM EPI previously reported as: 0 SEEN /hpf Urine blood detectionOrdered By: Elliott Grigsby on 04-05-2023 RBC Ql (U) 10 /ul Negative [facility] RBC Ql (U) 0 SEEN /hpf 0-5 [facility] Urine clarityOrdered By: Skyler Grigsby on 04-05-2023 Clarity (U) Clear Clear [facility] Urine coarse granular cast d etectionOrdered By: Elliott Grigsby on 04-05-2023 Coarse Granular Casts LM Ql (Urine sed) 0 SEEN /lpf 0-5 /lpf [facility] Urine color determinationOrd ered By: Elliott Grigsby on 04-05-2023 Color (U) Yellow Yellow [facility] Urine glucose detectionOrder ed By: Elliott Grigsby on 04-05-2023 Glucose Ql (U) Normal mg/dl Normal [facility] Urine leukocyte esterase det ection by dipstickOrdered By: Elliott Grigsby on 04-05-2023 Leukocyte esterase Test strip Ql (U) 25 /ul Negative [facility] Urine pHOrdered By: Elliott dickerson on 04-05-2023 pH (U) 6.0 [pH] 5.0 - 8.0 [facility] Urine sediment bacteria coun t by microscopy (number/high power field)Ordered By: Elliott Grigsby on 04-05-2023 Bacteria LM.HPF (Urine sed) [#/Area] 0 /[HPF] None Seen [facility] Urine sediment erythrocyte c ast detection by light microscopyOrdered By: Elliott Grigsby on 04-05-2023 RBC casts LM Ql (Urine sed) 0 SEEN /lpf None Seen [facility] Urine sediment fine granular cast count by microscopy (number/low power field)Ordered By: Elliott Grigsby on 04-05-2023 Fine Granular Casts LM.LPF (Urine sed) [#/Area] 0 SEEN /lpf 0-5 [facility] Urine sediment leukocyte bianca t count by microscopy (number/low power field)Ordered By: Elliott Grigsby on 04-05-2023 WBC casts LM.LPF (Urine sed) [#/Area] 0 SEEN /lpf None Seen [facility] Urine sediment renal epithel ial cell count by microscopy (number/high power field)Ordered By: Elliott Grigsby on 04-05-2023 Epithelial cells.renal LM.HPF (Urine sed) [#/Area] 0 /[HPF] 0-5 [facility] Urine sediment unidentified crystal count by microscopy (number/high powered field)Ordered By: Elliott Grigsby on 04-05-2023 Unidentified crystals LM.HPF (Urine sed) [#/Area] 0 SEEN /hpf None Seen [facility] Urine sediment uric acid cry stal count by microscopy (number/high power field)Ordered By: Elliott Grigsby on 04-05-2023 Urate crystals LM.HPF (Urine sed) [#/Area] 0 /[HPF] [facility] Urine specific gravity measu rementOrdered By: Elliott Grigsby on 04-05-2023 Specific gravity (U) [Rel density] 1.025 1.002-1.030 [facility] Urobilinogen Auto test strip Ql (U)Ordered By: Elliott Grigsby on 04-05-2023 Urobilinogen Ql (U) 1 mg/dl Normal [facility] Waxy casts detection in urin e sediment by light microscopyOrdered By: Elliott Grigsby on 04-05-2023 Waxy casts LM Ql (Urine sed) 0 SEEN /lpf None Seen [facility] .Auto Diffon 11-14-2022 Basophil, Absolute 0.1 10 3/mcL Normal 0.0-0.3 [facility] ([place]) Comment on above: Performed By: #### A DIFF, ANEU, CBC #### [address] [address] Basophils/100 WBC (Bld) 1.0 % Normal 0.0 - 2.5 % [facility] ([place]) Comment on above: Performed By: #### A DIFF, ANEU, CBC #### [address] [address] Eosinophil, Absolute 0.1 10 3/mcL Normal 0.0-0.7 [facility] ([place]) Comment on above: Performed By: #### A DIFF, ANEU, CBC #### [address] [address] Eosinophils/100 WBC (Bld) 2.0 % Normal 0.0 - 6.0 % [facility] ([place]) Comment on above: Performed By: #### A DIFF, ANEU, CBC #### [address] [address] Lymphocyte, Absolute 1.9 10 3/mcL Normal 0.9-4.3 [facility] ([place]) Comment on above: Performed By: #### A DIFF, ANEU, CBC #### [address] [address] Lymphocytes/100 WBC (Bld) 25.6 % Normal 20.0 - 40.0 % [facility] ([place]) Comment on above: Performed By: #### A DIFF, ANEU, CBC #### [address] [address] Monocyte, Absolute 0.6 10 3/mcL Normal 0.1-1.4 [facility] ([place]) Comment on above: Performed By: #### A DIFF, ANEU, CBC #### [address] [address] Monocytes/100 WBC (Bld) 8.5 % Normal 2.0 - 13.0 % [facility] ([place]) Comment on above: Performed By: #### A DIFF, ANEU, CBC #### [address] [address] Neutrophils/100 WBC (Bld) 62.9 % Normal 50.0 - 75.0 % [facility] ([place]) Comment on above: Performed By: #### A DIFF, ANEU, CBC #### [address] [address] .NEUABSon 11-14-2022 Neutrophil, Absolute 4.7 10 3/mcL Normal 2.3-8.1 [facility] ([place]) Comment on above: Performed By: #### A DIFF, ANEU, CBC #### [place] [id number] CBCon 11-14-2022 Erythrocyte distribution width (RBC) [Ratio] 16.2 % Abnormal 11.5 - 15.5 % [facility] ([place]) Comment on above: Performed By: #### A DIFF, ANEU, CBC #### [place] [address] Hematocrit (Bld) [Volume fraction] 34.8 % Normal 34.0 - 46.0 % [facility] ([place]) Comment on above: Performed By: #### A DIFF, ANEU, CBC #### [place] [address] Hgb 11.3 G/dL Low 12.0-16.0 [facility] ([place]) Comment on above: Performed By: #### A DIFF, ANEU, CBC #### [place] [address] MCH (RBC) [Entitic mass] 28.8 pg Normal 27. 0 - 33.0 pg [facility] ([place]) Comment on above: Performed By: #### A DIFF, ANEU, CBC #### [place] [address] MCHC 32.5 G/dL Normal 32.0-36.0 [facility] ([place]) Comment on above: Performed By: #### A DIFF, ANEU, CBC #### [place] [address] MCV (RBC) [Entitic vol] 88.6 fL Normal 80.0 - 99.0 fL [facility] ([place]) Comment on above: Performed By: #### A DIFF, ANEU, CBC #### [place] [address] Platelet 362 10 3/mcL Normal 150-450 [facility] ([place]) Comment on above: Performed By: #### A DIFF, ANEU, CBC #### [facility] [address] [place] [id number] Platelet mean volume (Bld) [Entitic vol] 7.1 fL Normal 6.6 - 10.5 fL [facility] ([place]) Comment on above: Performed By: #### A DIFF, ANEU, CBC #### [address] [address] RBC 3.92 10 6/mcL Low 4.10-5.30 [facility] ([place]) Comment on above: Performed By: #### A DIFF, ANEU, CBC #### [address] [address] WBC 7.5 10 3/mcL Normal 4.5-10.8 [facility] ([place]) Comment on above: Performed By: #### A DIFF, ANEU, CBC #### [address] [address] Laboratory - Hematology and Cell countson 11-13-2022 Basophils (Bld) [#/Vol] 0.1 {10^3/mcL} Normal 0. 0 - 0.3 {10^3/mcL} [place] [facility]; [facility] Work Phone: Eosinophils (Bld) [#/Vol] 0.1 {10^3/mcL} Normal 0.0 - 0.7 {10^3/mcL} [place] [facility].; [facility]. Work Phone: Hemoglobin (Bld) [Mass/Vol] 11.3 g/dL Abnormal 12.0 - 16.0 g/dL [facility]; [facility] Work Phone: Lymphocytes (Bld) [#/Vol] 1.9 {10^3/mcL} Normal 0.9 - 4.3 {10^3/mcL} [facility]; [facility] [employer] [facility] Work Phone: MCHC (RBC) [Mass/Vol] 32.5 g/dL Normal 32.0 - 36.0 g/dL [place] [facility].; [facility] Work Phone: Monocytes (Bld) [#/Vol] 0.6 {10^3/mcL} Normal 0. 1 - 1.4 {10^3/mcL} [place] [facility].; [facility] [place] [facility]. Work Phone: Neutrophils (Bld) [#/Vol] 4.7 {10^3/mcL} Normal 2.3 - 8.1 {10^3/mcL} [place] [facility].; [facility]. Work Phone: Platelets (Bld) [#/Vol] 362 {10^3/mcL} Normal 15 0 - 450 {10^3/mcL} [place] [facility].; [employer] [place] [facility]. Work Phone: RBC (Bld) [#/Vol] 3.92 {10^6/mcL} Abnormal 4.10 - 5.30 {10^6/mcL} [place] [facility].; [facility]. Work Phone: WBC (Bld) [#/Vol] 7.5 {10^3/mcL} Normal 4.5 - 10 .8 {10^3/mcL} [place] [facility].; [facility] [employer] [employer] [facility]. Work Phone: No Panel Informationon 11-13 Basophil, Absolute 0.1 {10^3/mcL} Normal 0.0 - 0 .3 {10^3/mcL} [place] [facility].; [facility]. Work Phone: Eosinophil, Absolute 0.1 {10^3/mcL} Normal 0.0 - 0.7 {10^3/mcL} [facility].; [facility], [facility]. Work Phone: Lymphocyte, Absolute 1.9 {10^3/mcL} Normal 0.9 - 4.3 {10^3/mcL} [facility].; [facility], [facility]. Work Phone: Monocyte, Absolute 0.6 {10^3/mcL} Normal 0.1 - 1 .4 {10^3/mcL} [facility].; [facility], [facility]. Work Phone: Neutrophil, Absolute 4.7 {10^3/mcL} Normal 2.3 - 8.1 {10^3/mcL} [facility].; [facility], [facility]. Work Phone: Laboratory - Chemistry and C hemistry - challengeon 06-30-2022 Albumin [Mass/Vol] 1.0 g/dL Normal 0.9 - 1.6 [facility].; [facility], [facility] Albumin [Mass/Vol] 3.4 g/dL Normal 3.4 - 5.0 g/dL [facility]; [facility], [facility]. ALT [Catalytic activity/Vol] 23 U/L Normal 14 - 59 U/L [facility]; [facility], [facility]. ALT No additional P-5'-P [Catalytic activity/Vol] 23 U/L Normal 14 - 59 U/L [facility], [facility] Anion gap [Moles/Vol] 10 mmol/L Normal 10 - 2 0 mmol/L [facility]; [facility], [facility]. AST [Catalytic activity/Vol] 31 U/L Normal 13 - 39 U/L [facility]; [facility], [facility] Bilirubin [Mass/Vol] 0.3 mg/dL Normal 0.2 - 1 .0 mg/dL [facility].; [facility] Calcium [Mass/Vol] 9.0 mg/dL Normal 8.5 - 10. 1 mg/dL [facility]; [facility] Chloride [Moles/Vol] 102 mmol/L Normal 98 - 10 7 mmol/L [facility]; [facility] Cholesterol [Mass/Vol] 193 mg/dL Normal 0 - 2 40 mg/dL [facility]; [facility] Cholesterol in HDL [Mass or moles/Vol] 50 mg/dL Normal 40 - 60 mg/dL [facility]; [facility] Cholesterol in LDL [Mass/Vol] 128 mg/dL Normal 0 - 129 mg/dL [facility]; [facility] Cholesterol.total/Choles terol in HDL [Mass ratio] 3.9 {ratio} Normal 0.0 - 5.0 [facility]; [facility] CO2 [Moles/Vol] 32.3 mmol/L Abnormal 21.0 - 32.0 mmol/L [facility]; [facility], [facility] Creatinine [Mass/Vol] 0.84 mg/dL Normal 0.55 - 1.02 mg/dL [facility].; [facility], [facility]. GFR/1.73 sq M.predicted among blacks MDRD (S/P/Bld) [Vol rate/Area] mL/min/{1.73_m2} Normal 60 - 999 {ML/MINUTE} [facility].; [facility], [facility]. GFR/1.73 sq M.predicted MDRD (S/P/Bld) [Vol rate/Area] mL/min/{1.73_m2} Normal 60 - 999 {ML/MINUTE} [facility].; [facility] Globulin (S) [Mass/Vol] 3.3 g/dL Normal 1.5 - 3.8 g/dL [facility]; [facility] Glucose [Mass/Vol] 92 mg/dL Normal 74 - 106 mg/dL [facility]; [facility] Lipid 1996 panel Normal [facility]; [facility] Potassium [Moles/Vol] 3.6 mmol/L Normal 3.5 - 5.1 mmol/L [facility]; [facility] Protein [Mass/Vol] 6.7 g/dL Normal 6.4 - 8.2 g/dL [facility]; [facility] Sodium [Moles/Vol] 141 mmol/L Normal 136 - 145 mmol/L [facility]; [facility] Triglyceride [Mass/Vol] 74 mg/dL Normal 0 - 150 mg/dL [facility]; [facility] TSH Qn 2.16 m[IU]/L Normal 0.35 - 3.74 {uIU/ml} [facility]; [facility] Urea nitrogen [Mass/Vol] 14 mg/dL Normal 7 - 18 mg/d L [facility]; [facility] Urea nitrogen/Creatinine [Mass ratio] 17 {ratio} Normal 0 - 30 {ratio} [facility]; [facility] Laboratory - Hematology and Cell countson 06-30-2022 Basophils (Bld) [#/Vol] 0.00 {x10EE3/UL} Normal 0.00 - 0.10 {x10EE3/UL} [facility]; [facility], [facility] Basophils/100 WBC (Bld) 0.6 % Normal 0.0 - 2.0 % [facility]; [place] [facility] Eosinophils (Bld) [#/Vol] 0.10 {x10EE3/UL} Normal 0.00 - 0.50 {x10EE3/UL} [place] [facility].; [facility], [facility] Eosinophils/100 WBC (Bld) 2.0 % Normal 0.0 - 7.0 % [facility].; [facility], [facility] Erythrocyte distribution width (RBC) [Ratio] 13.1 % Normal 12.0 - 15.6 % [facility].; [facility], [facility] Hematocrit (Bld) [Volume fraction] 35.3 % Normal 34.0 - 46.0 % [facility].; [facility], [facility] Hemoglobin (Bld) [Mass/Vol] 11.3 g/dL Abnormal 12.0 - 16.0 g/dL [facility].; [facility], [facility] Lymphocytes (Bld) [#/Vol] 1.50 {x10EE3/UL} Normal 0.80 - 2.80 {x10EE3/UL} [facility].; [facility], [facility] Lymphocytes/100 WBC (Bld) 23.7 % Normal 20.0 - 45.0 % [facility] [facility].; [facility], [facility] MCH (RBC) [Entitic mass] 28 pg Normal 27 - 33 pg [facility] [facility].; [facility], [facility]. MCHC (RBC) [Mass/Vol] 32 {X10_3} Normal 32 - 3 6 {X10_3} [place] [facility].; [facility], [facility]. MCV (RBC) [Entitic vol] 88 fL Normal 80 - 99 fL [facility].; [facility], [facility] Monocytes (Bld) [#/Vol] 1.00 {x10EE3/UL} Normal 0.20 - 1.00 {x10EE3/UL} [place] [facility].; [facility], [facility]. Monocytes/100 WBC (Bld) 15.0 % Abnormal 0.0 - 10.0 % [facility].; [facility], [facility] Morphology Sonny (Bld) [Interp] N/A Normal [facility].; [facility], [facility]. Neutrophils (Bld) [#/Vol] 3.80 {x10EE3/UL} Normal 1.50 - 7.10 {x10EE3/UL} [place] [facility].; [facility], [facility]. Neutrophils/100 WBC (Bld) 58.7 % Normal 46.0 - 76.0 % [facility].; [facility], [facility]. Platelet mean volume (Bld) [Entitic vol] 7.6 fL Normal 6.6 - 10.5 fL [facility].; [facility], [facility]. Platelets (Bld) [#/Vol] 461 {x10EE3/UL} Abnormal 1 50 - 450 {x10EE3/UL} [facility].; [facility], [facility]. RBC (Bld) [#/Vol] 4.00 {x_10EE6/UL} Abnormal 4.10 - 5.30 {x_10EE6/UL} [facility].; [facility], [facility]. WBC (Bld) [#/Vol] 6.5 {x_10EE3/UL} Normal 4.5 - 10.8 {x_10EE3/UL} [facility].; [facility], [facility]. No Panel Informationon 06-30 AGE 82 {years} Normal [facility].; [facility], [employer]. ALK PHOS 111 U/L Normal 46 - 116 U/L [facility].; [facility], [employer]. CBC + DIFF Normal [facility].; [facility], [employer]. CMP with eGFR Normal [facility].; [facility]. MANUAL DIFF N/A Normal [place] [facility].; [facility]. Absolute lymphocyte counton 02-15-2022 Lymphocytes Auto (Unsp spec) [#/Vol] 2.15 10*3/uL 0.83-4.51 [facility] Work Phone: Basophil percentageon 2021 Basophils/100 WBC (Bld) 0.4 % 0-1 [facility] Work Phone: Chloride [Moles/Vol] 107 mmol/L 98-107 [facility] Work Phone: Eosinophils/100 WBC (Bld) 2.4 % 0-5 [facility] Work Phone: Glucose [Mass/Vol] 98 mg/dL 74-106 [facility] Work Phone: Neutrophils (Bld) [#/Vol] 3.5 10*3/uL 2.0-7.7 [facility] Work Phone: Neutrophils/100 WBC (Bld) 52.1 % 47-70 [facility] Work Phone: Potassium [Moles/Vol] 4.3 mmol/L 3.5-5.1 [facility] Work Phone: Sodium [Moles/Vol] 139 mmol/L 136-145 [facility] Work Phone: WBC (Bld) [#/Vol] 6.8 10*3/uL 4.4-11.0 [facility] Work Phone: Blood erythrocytes count (nu mber/volume)on 02-15-2022 RBC (Bld) [#/Vol] 3.76 10*6/uL 4.2-5.4 [facility] Work Phone: Blood hemoglobin measurement (mass/volume)on 02-15-2022 Hemoglobin (Bld) [Mass/Vol] 11.4 g/dL 12.0-15.0 [facility] Work Phone: Blood lymphocytes/100 leukoc yteson 02-15-2022 Lymphocytes/100 WBC (Bld) 31.7 % 19-41 [facility] Work Phone: Blood monocytes/100 leukocyt eson 02-15-2022 Monocytes/100 WBC (Bld) 13.1 % 0-10 [facility] Work Phone: Blood platelet mean volumeon 02-15-2022 Platelet mean volume (Bld) [Entitic vol] 9.0 fL 6.2-12.0 [facility] Work Phone: Determination of erythrocyte mean corpuscular volume (MCV)on 02-15-2022 MCV (RBC) [Entitic vol] 95.2 fL 81-99 [facility] Work Phone: Hematocrit Auto (Bld) [Volum e fraction]on 02-15-2022 Hematocrit (Bld) [Volume fraction] 35.8 % 37-47 [facility] Work Phone: Laboratory - Chemistry and C hemistry - challengeon 02-15-2022 CO2 [Moles/Vol] 26.0 mmol/L 21.0-32.0 [facility] Work Phone: Urea nitrogen/Creatinine [Mass ratio] 23.6 mg/mg 10-20 [facility] Work Phone: Laboratory - Hematology and Cell countson 02-15-2022 Erythrocyte distribution width (RBC) [Entitic vol] 46.2 fL 35.1-43.9 [facility] Work Phone: Erythrocyte distribution width (RBC) [Ratio] 13.3 % 11.6-14.6 [facility] Work Phone: Immature granulocytes/100 WBC (Bld) 0.300 % 0.0-0.9 [facility] Work Phone: Comment on above: IG% - Immature Granu locytes (promyelocytes, myelocytes and metamyelocytes) > 1% indicates that a LEFT SHIFT is Present. MCH (RBC) [Entitic mass] 30.3 pg 27.0-32.0 [facility] Work Phone: Nucleated RBC/100 WBC (Bld) [Ratio] 0 % 0-5 [facility] Work Phone: MCHC Auto (RBC) [Mass/Vol]on 02-15-2022 MCHC (RBC) [Mass/Vol] 31.8 g/dL 32-36 [facility] Work Phone: No Panel Informationon 02-15 Estimated Creatinine Clearance Calc 35.94 ml/min [facility] Work Phone: Estimated GFR (MDRD) Amer 64 mL/min >60 [facility] Work Phone: Comment on above: GFR Calc Estimated GFR (MDRD) Non-Af Amer 53 mL/min >60 [facility] Work Phone: Comment on above: Non- GFR Calc Platelets bldon 02-15-2022 Platelets (Bld) [#/Vol] 296 10*3/uL 150-450 [facility] Work Phone: Serum or plasma calcium candice urement (mass/volume)on 02-15-2022 Calcium [Mass/Vol] 9.7 mg/dL 8.5-10.1 [facility] Work Phone: Serum or plasma creatinine m easurement (mass/volume)on 02-15-2022 Creatinine [Mass/Vol] 1.06 mg/dL 0.55-1.02 [facility] Work Phone: Comment on above: The validity of the calculated GFR & GFRAA in patients over 70 years has not been determined. Clinical correlation is essential. Serum or plasma urea nitroge n measurement (mass/volume)on 02-15-2022 Urea nitrogen [Mass/Vol] 25 mg/dL 7-18 [facility] Work Phone: Thin prep Papanicolaou smear with manual screeningon 02-15-2022 Thin prep Papanicolaou smear with manual screening 6 5-15 [facility] Work Phone: [phone] Serum or plasma folate measu rement (mass/volume)on 02-11-2022 Folate [Mass/Vol] 12.20 ng/mL 3.1-55.4 [facility] Work Phone: [phone] Absolute lymphocyte counton 12-28-2021 Lymphocytes Auto (Unsp spec) [#/Vol] 1.79 10*3/uL 0.83-4.51 [facility] Work Phone: Basophil percentageon 2021 Basophils/100 WBC (Bld) 0.7 % 0-1 [facility] Work Phone: Chloride [Moles/Vol] 108 mmol/L 98-107 [facility] Work Phone: [phone] Eosinophils/100 WBC (Bld) 2.7 % 0-5 [facility] Work Phone: Glucose [Mass/Vol] 96 mg/dL 74-106 [facility] Work Phone: Neutrophils (Bld) [#/Vol] 1.8 10*3/uL 2.0-7.7 [facility] Work Phone: Neutrophils/100 WBC (Bld) 39.9 % 47-70 [facility] Work Phone: [phone] Potassium [Moles/Vol] 3.8 mmol/L 3.5-5.1 [facility] Work Phone: Sodium [Moles/Vol] 142 mmol/L 136-145 [facility] Work Phone: WBC (Bld) [#/Vol] 4.4 10*3/uL 4.4-11.0 [facility] Work Phone: Blood erythrocytes count (nu mber/volume)on 12-28-2021 RBC (Bld) [#/Vol] 3.53 10*6/uL 4.2-5.4 [facility]: Blood hemoglobin measurement (mass/volume)on 12-28-2021 Hemoglobin (Bld) [Mass/Vol] 10.8 g/dL 12.0-15.0 [facility] Work Phone: Blood lymphocytes/100 leukoc yteson 12-28-2021 Lymphocytes/100 WBC (Bld) 40.6 % 19-41 [facility] Work Phone: Blood monocytes/100 leukocyt eson 12-28-2021 Monocytes/100 WBC (Bld) 15.6 % 0-10 [facility] Work Phone: Blood platelet mean volumeon 12-28-2021 Platelet mean volume (Bld) [Entitic vol] 8.8 fL 6.2-12.0 [facility] Work Phone: Determination of erythrocyte mean corpuscular volume (MCV)on 12-28-2021 MCV (RBC) [Entitic vol] 96.3 fL 81-99 [facility] Work Phone: Hematocrit Auto (Bld) [Volum e fraction]on 12-28-2021 Hematocrit (Bld) [Volume fraction] 34.0 % 37-47 [facility] Work Phone: Laboratory - Chemistry and C hemistry - challengeon 12-28-2021 CO2 [Moles/Vol] 29.0 mmol/L 21.0-32.0 [facility] Work Phone: Urea nitrogen/Creatinine [Mass ratio] 29.6 mg/mg 10-20 [facility] Work Phone: Laboratory - Hematology and Cell countson 12-28-2021 Erythrocyte distribution width (RBC) [Entitic vol] 49.6 fL 35.1-43.9 [facility] Work Phone: Erythrocyte distribution width (RBC) [Ratio] 13.9 % 11.6-14.6 [facility] Work Phone: Immature granulocytes/100 WBC (Bld) 0.500 % 0.0-0.9 [facility] Work Phone: Comment on above: IG% - Immature Granu locytes (promyelocytes, myelocytes and metamyelocytes) > 1% indicates that a LEFT SHIFT is Present. MCH (RBC) [Entitic mass] 30.6 pg 27.0-32.0 [facility] Work Phone: Nucleated RBC/100 WBC (Bld) [Ratio] 0 % 0-5 [facility] Work Phone: MCHC Auto (RBC) [Mass/Vol]on 12-28-2021 MCHC (RBC) [Mass/Vol] 31.8 g/dL 32-36 [facility] Work Phone: No Panel Informationon 12-28 Estimated Creatinine Clearance Calc 38.75 ml/min [facility] Work Phone: Estimated GFR (MDRD) Amer 114 mL/min >60 [facility] Work Phone: Comment on above: GFR Calc Estimated GFR (MDRD) Non-Af Amer 95 mL/min >60 [facility] Work Phone: Comment on above: Non- GFR Calc Platelets bldon 12-28-2021 Platelets (Bld) [#/Vol] 345 10*3/uL 150-450 [facility] Work Phone: Serum or plasma calcium candice urement (mass/volume)on 12-28-2021 Calcium [Mass/Vol] 8.8 mg/dL 8.5-10.1 [facility] Work Phone: Serum or plasma creatinine m easurement (mass/volume)on 12-28-2021 Creatinine [Mass/Vol] 0.64 mg/dL 0.55-1.02 [facility] Work Phone: Comment on above: The validity of the calculated GFR & GFRAA in patients over 70 years has not been determined. Clinical correlation is essential. Serum or plasma urea nitroge n measurement (mass/volume)on 07-16-2022 Urea nitrogen [Mass/Vol] 19 mg/dL 7-18 [facility] Work Phone: Thin prep Papanicolaou smear with manual screeningon 12-28-2021 Thin prep Papanicolaou smear with manual screening 5 5-15 [facility] Work Phone: [phone] Laboratory - Chemistry and C hemistry - challengeon 12-24-2021 Cobalamin (Vitamin B12) [Mass/Vol] 354 pg/mL 211-911 [facility] Work Phone: [phone] Absolute lymphocyte counton 12-21-2021 Lymphocytes Auto (Unsp spec) [#/Vol] 2.08 10*3/uL 0.83-4.51 [facility] Work Phone: [phone] Basophil percentageon 2021 Basophils/100 WBC (Bld) 0.8 % 0-1 [facility] Work Phone: [phone] Chloride [Moles/Vol] 103 mmol/L 98-107 [facility] Work Phone: [phone] Eosinophils/100 WBC (Bld) 2.3 % 0-5 [facility] Work Phone: [phone] Glucose [Mass/Vol] 100 mg/dL 74-106 [facility] Work Phone: [phone] Comment on above: Fasting Glucose resu lt from 100 to 125 mg/dL suggests IMPAIRED HOMEOSTASIS per A.D.A. criteria. Neutrophils (Bld) [#/Vol] 2.3 10*3/uL 2.0-7.7 [facility] Work Phone: [phone] Neutrophils/100 WBC (Bld) 43.7 % 47-70 [facility] Work Phone: [phone] Potassium [Moles/Vol] 3.7 mmol/L 3.5-5.1 [facility] Work Phone: [phone] Sodium [Moles/Vol] 139 mmol/L 136-145 [facility] Work Phone: [phone] WBC (Bld) [#/Vol] 5.2 10*3/uL 4.4-11.0 [facility] Work Phone: Blood erythrocytes count (nu mber/volume)on 12-21-2021 RBC (Bld) [#/Vol] 3.80 10*6/uL 4.2-5.4 [facility] Work Phone: Blood hemoglobin measurement (mass/volume)on 12-21-2021 Hemoglobin (Bld) [Mass/Vol] 11.3 g/dL 12.0-15.0 [facility] Work Phone: Blood lymphocytes/100 leukoc yteson 12-21-2021 Lymphocytes/100 WBC (Bld) 39.8 % 19-41 [facility] Work Phone: Blood monocytes/100 leukocyt eson 12-21-2021 Monocytes/100 WBC (Bld) 12.3 % 0-10 [facility] Work Phone: Blood platelet mean volumeon 12-21-2021 Platelet mean volume (Bld) [Entitic vol] 8.6 fL 6.2-12.0 [facility] Work Phone: Determination of erythrocyte mean corpuscular volume (MCV)on 12-21-2021 MCV (RBC) [Entitic vol] 96.3 fL 81-99 [facility] Work Phone: Hematocrit Auto (Bld) [Volum e fraction]on 12-21-2021 Hematocrit (Bld) [Volume fraction] 36.6 % 37-47 [facility] Work Phone: Laboratory - Chemistry and C hemistry - challengeon 12-21-2021 CO2 [Moles/Vol] 31.0 mmol/L 21.0-32.0 [facility] Work Phone: Urea nitrogen/Creatinine [Mass ratio] 28.6 mg/mg 10-20 [facility] Work Phone: Laboratory - Hematology and Cell countson 12-21-2021 Erythrocyte distribution width (RBC) [Entitic vol] 49.7 fL 35.1-43.9 [facility] Work Phone: Erythrocyte distribution width (RBC) [Ratio] 14.0 % 11.6-14.6 [facility] Work Phone: Immature granulocytes/100 WBC (Bld) 1.100 % 0.0-0.9 [facility] Work Phone: Comment on above: IG% - Immature Granu locytes (promyelocytes, myelocytes and metamyelocytes) > 1% indicates that a LEFT SHIFT is Present. MCH (RBC) [Entitic mass] 29.7 pg 27.0-32.0 [facility] Work Phone: Nucleated RBC/100 WBC (Bld) [Ratio] 0 % 0-5 [facility] Work Phone: MCHC Auto (RBC) [Mass/Vol]on 12-21-2021 MCHC (RBC) [Mass/Vol] 30.9 g/dL 32-36 [facility] Work Phone: No Panel Informationon 12-21 Estimated Creatinine Clearance Calc 38.75 ml/min [facility] Work Phone: Estimated GFR (MDRD) Amer 93 mL/min >60 [facility] Work Phone: Comment on above: GFR Calc Estimated GFR (MDRD) Non-Af Amer 77 mL/min >60 [facility] Work Phone: Comment on above: Non- GFR Calc Platelets bldon 12-21-2021 Platelets (Bld) [#/Vol] 426 10*3/uL 150-450 [facility] Work Phone: Serum or plasma calcium candice urement (mass/volume)on 12-21-2021 Calcium [Mass/Vol] 9.4 mg/dL 8.5-10.1 [facility] Work Phone: Serum or plasma creatinine m easurement (mass/volume)on 12-21-2021 Creatinine [Mass/Vol] 0.77 mg/dL 0.55-1.02 [facility] Work Phone: Comment on above: The validity of the calculated GFR & GFRAA in patients over 70 years has not been determined. Clinical correlation is essential. Serum or plasma urea nitroge n measurement (mass/volume)on 12-21-2021 Urea nitrogen [Mass/Vol] 22 mg/dL 7-18 [facility] Work Phone: Thin prep Papanicolaou smear with manual screeningon 12-21-2021 Thin prep Papanicolaou smear with manual screening 5 5-15 [facility] Work Phone: Basophil percentageon 2021 Basophil percentage 0 SEEN /hpf 0-5 [facility] Work Phone: Basophil percentage 4.7 mg/dL 2.5-4.9 [facility] Work Phone: Bilirubin [Mass/Vol] 0.20 mg/dL 0.20-1.00 [facility] Work Phone: Comment on above: For patients on eltr ombopag therapy, use of Dimension [place] TBIL is not recommended. Protein [Mass/Vol] 6.9 g/dL 6.4-8.2 [facility] Work Phone: Bilirubin Test strip Ql (U)o n 12-20-2021 Bilirubin Ql (U) Negative Negative [facility] Work Phone: Ketones Test strip Ql (U)on 12-20-2021 Ketones Ql (U) Negative Negative [facility] Work Phone: Laboratory - Chemistry and C hemistry - challengeon 12-20-2021 ALP [Catalytic activity/Vol] 76 U/L 45-117 [facility] Work Phone: ALT [Catalytic activity/Vol] 50 U/L 13-56 [facility] Work Phone: Globulin (S) [Mass/Vol] 3.8 g/dL 2.2-4.2 [facility] Work Phone: Mucus LM Ql (Urine sed)on Mucus Ql (Urine sed) 0 SEEN /hpf [facility] Work Phone: Nitrite Test strip Ql (U)on 12-20-2021 Nitrite Ql (U) Negative Negative [facility] Work Phone: Protein Test strip Ql (U)on 12-20-2021 Protein Ql (U) Negative Negative [facility] Work Phone: Serum or plasma albumin candice urement (mass/volume)on 12-20-2021 Albumin [Mass/Vol] 3.1 g/dL 3.2-5.0 [facility] Work Phone: Serum or plasma albumin/glob ulin mass ratioon 12-20-2021 Albumin/Globulin [Mass ratio] 0.8 {ratio} 0.9-2.4 [facility] Work Phone: Squamous epithelial cells de tection in urine sediment by light microscopyon 12-20-2021 Epithelial cells.squamous LM Ql (Urine sed) 0-5 SEEN /hpf 5-10 [facility] Work Phone: Thin prep Papanicolaou smear with manual screeningon 12-20-2021 Thin prep Papanicolaou smear with manual screening 35 U/L 15-37 [facility] Work Phone: Urine blood detectionon RBC Ql (U) Negative Negative [facility] Work Phone: RBC Ql (U) 0 SEEN /hpf 0-5 [facility] Work Phone: Urine clarityon 12-20-2021 Clarity (U) Clear Clear [facility] Work Phone: Urine color determinationon 12-20-2021 Color (U) Yellow Yellow [facility] Work Phone: Urine glucose detectionon Glucose Ql (U) Normal mg/dl Normal [facility] Work Phone: Urine leukocyte esterase det ection by dipstickon 12-20-2021 Leukocyte esterase Test strip Ql (U) Negative Negative [facility] Work Phone: Urine pHon 12-20-2021 pH (U) 6.0 [pH] 5.0 - 8.0 [facility] Work Phone: Urine sediment bacteria coun t by microscopy (number/high power field)on 12-20-2021 Bacteria LM.HPF (Urine sed) [#/Area] 0 /[HPF] None Seen [facility] Work Phone: Urine specific gravity measu rementon 12-20-2021 Specific gravity (U) [Rel density] 1.015 1.002-1.030 [facility] Work Phone: Urobilinogen Auto test strip Ql (U)on 12-20-2021 Urobilinogen Ql (U) Normal mg/dl Normal [facility] Work Phone: Laboratory - Chemistry and C hemistry - challengeon 12-17-2021 Magnesium [Mass/Vol] 2.0 mg/dL 1.6-2.6 [facility] Work Phone: Basophil percentageon 2021 Chloride [Moles/Vol] 109 mmol/L 98-107 [facility] Work Phone: Glucose [Mass/Vol] 103 mg/dL 74-106 [facility] Work Phone: Comment on above: Fasting Glucose resu lt from 100 to 125 mg/dL suggests IMPAIRED HOMEOSTASIS per A.D.A. criteria. Potassium [Moles/Vol] 3.4 mmol/L 3.5-5.1 [facility] Work Phone: Sodium [Moles/Vol] 138 mmol/L 136-145 [facility] Work Phone: Laboratory - Chemistry and C hemistry - challengeon 12-13-2021 CK [Catalytic activity/Vol] 839 U/L 26-192 [facility] Work Phone: CO2 [Moles/Vol] 21.0 mmol/L 21.0-32.0 [facility] Work Phone: Urea nitrogen/Creatinine [Mass ratio] 14.4 mg/mg 10-20 [facility] Work Phone: No Panel Informationon 12-13 Estimated Creatinine Clearance Calc 38.75 ml/min [facility] Work Phone: Estimated GFR (MDRD) Amer 135 mL/min >60 [facility] Work Phone: Comment on above: GFR Calc Estimated GFR (MDRD) Non-Af Amer 111 mL/min >60 [facility] Work Phone: Comment on above: Non- GFR Calc Serum or plasma calcium candice urement (mass/volume)on 12-13-2021 Calcium [Mass/Vol] 7.6 mg/dL 8.5-10.1 [facility] Work Phone: Serum or plasma creatinine m easurement (mass/volume)on 12-13-2021 Creatinine [Mass/Vol] 0.56 mg/dL 0.55-1.02 [facility] Work Phone: Comment on above: The validity of the calculated GFR & GFRAA in patients over 70 years has not been determined. Clinical correlation is essential. Serum or plasma urea nitroge n measurement (mass/volume)on 12-13-2021 Urea nitrogen [Mass/Vol] 8 mg/dL 7-18 [facility] Work Phone: Thin prep Papanicolaou smear with manual screeningon 12-13-2021 Thin prep Papanicolaou smear with manual screening 8 5-15 [facility] Work Phone: Basophil percentageon 2021 Basophil percentage 1.6 mg/dL 2.5-4.9 [facility] Work Phone: Laboratory - Chemistry and C hemistry - challengeon 12-12-2021 Magnesium [Mass/Vol] 2.3 mg/dL 1.6-2.6 [facility] Work Phone: Absolute lymphocyte counton 12-11-2021 Lymphocytes Auto (Unsp spec) [#/Vol] 1.05 10*3/uL 0.83-4.51 [facility] Work Phone: Basophil percentageon 2021 Basophils/100 WBC (Bld) 0.1 % 0-1 [facility] Work Phone: Bilirubin [Mass/Vol] 0.30 mg/dL 0.20-1.00 [facility] Work Phone: Comment on above: For patients on eltr ombopag therapy, use of Dimension [place] TBIL is not recommended. Eosinophils/100 WBC (Bld) 0.0 % 0-5 [facility] Work Phone: Neutrophils (Bld) [#/Vol] 10.8 10*3/uL 2.0-7.7 [facility] Work Phone: Neutrophils/100 WBC (Bld) 78.6 % 47-70 [facility] Work Phone: Protein [Mass/Vol] 6.3 g/dL 6.4-8.2 [facility] Work Phone: WBC (Bld) [#/Vol] 13.8 10*3/uL 4.4-11.0 [facility] Work Phone: Blood erythrocytes count (nu mber/volume)on 12-11-2021 RBC (Bld) [#/Vol] 3.71 10*6/uL 4.2-5.4 [facility] Work Phone: Blood hemoglobin measurement (mass/volume)on 12-11-2021 Hemoglobin (Bld) [Mass/Vol] 11.1 g/dL 12.0-15.0 [facility] Work Phone: Blood lymphocytes/100 leukoc yteson 12-11-2021 Lymphocytes/100 WBC (Bld) 7.6 % 19-41 [facility] Work Phone: Blood monocytes/100 leukocyt eson 12-11-2021 Monocytes/100 WBC (Bld) 13.1 % 0-10 [facility] Work Phone: Blood platelet mean volumeon 12-11-2021 Platelet mean volume (Bld) [Entitic vol] 9.4 fL 6.2-12.0 [facility] Work Phone: Determination of erythrocyte mean corpuscular volume (MCV)on 12-11-2021 MCV (RBC) [Entitic vol] 91.9 fL 81-99 [facility] Work Phone: Hematocrit Auto (Bld) [Volum e fraction]on 12-11-2021 Hematocrit (Bld) [Volume fraction] 34.1 % 37-47 [facility] Work Phone: Laboratory - Chemistry and C hemistry - challengeon 12-11-2021 ALP [Catalytic activity/Vol] 80 U/L 45-117 [facility] Work Phone: ALT [Catalytic activity/Vol] 45 U/L 13-56 [facility] Work Phone: Globulin (S) [Mass/Vol] 3.5 g/dL 2.2-4.2 [facility] Work Phone: Laboratory - Hematology and Cell countson 12-11-2021 Erythrocyte distribution width (RBC) [Entitic vol] 47.1 fL 35.1-43.9 [facility] Work Phone: Erythrocyte distribution width (RBC) [Ratio] 13.9 % 11.6-14.6 [facility] Work Phone: Immature granulocytes/100 WBC (Bld) 0.600 % 0.0-0.9 [facility] Work Phone: Comment on above: IG% - Immature Granu locytes (promyelocytes, myelocytes and metamyelocytes) > 1% indicates that a LEFT SHIFT is Present. MCH (RBC) [Entitic mass] 29.9 pg 27.0-32.0 [facility] Work Phone: Nucleated RBC/100 WBC (Bld) [Ratio] 0 % 0-5 [facility] Work Phone: MCHC Auto (RBC) [Mass/Vol]on 12-11-2021 MCHC (RBC) [Mass/Vol] 32.6 g/dL 32-36 [facility] Work Phone: Platelets bldon 12-11-2021 Platelets (Bld) [#/Vol] 276 10*3/uL 150-450 [facility] Work Phone: Review by pathologiston 11-14 Pathologist review Sonny (Unsp spec) [Interp] Reviewed [facility] Work Phone: Comment on above: Previous reported re sult: Pham dean Edited by: MAXI on 12/11/21:1238Neutrophilic leukocytosis.Clinical correlation necessary.Jagdish Helton M.D. 12/11/21 AMENDED REPORT 12/11/21 1238 PATH REV previously reported as: October jermaine Serum or plasma albumin candcie urement (mass/volume)on 12-11-2021 Albumin [Mass/Vol] 2.8 g/dL 3.2-5.0 [facility] Work Phone: Serum or plasma albumin/glob ulin mass ratioon 12-11-2021 Albumin/Globulin [Mass ratio] 0.8 {ratio} 0.9-2.4 [facility] Work Phone: Serum procalcitonin measurem enton 12-11-2021 Procalcitonin [Mass/Vol] 4.19 ng/mL 0.00-0.09 [facility] Work Phone: Comment on above: A procalcitonin (PCT ) level above 2.0 ng/mL on the first day of ICU admission is associated with a high risk for progression to severe sepsis and/or septic shock. A PCT level below 0.5 ng/mL on the first day of ICU admission is associated with a low risk for progression to severe and/or septic shock. Note: Concentrations <0.5 ng/mL do not exclude an infection on account of localized infections (without systemic signs) which can be associated with such low concentrations, or a systemic infection in its initial stages (<6 hours). Furthermore, increased procalcitonin can occur without infection. PCT concentrations between 0.5 and 2.0 ng/mL should be interpreted taking into account the patient's history. It is recommended to retest PCT within 6-24 hours if any concentrations <2 ng/mL are obtained. Thin prep Papanicolaou smear with manual screeningon 12-11-2021 Thin prep Papanicolaou smear with manual screening 123 U/L 15-37 [facility] Work Phone: Absolute lymphocyte counton 12-10-2021 Lymphocytes Auto (Unsp spec) [#/Vol] 1.00 10*3/uL 0.83-4.51 [facility] Work Phone: Amorphous sediment detection in urine sediment by light microscopyon 12-10-2021 Amorphous sediment LM Ql (Urine sed) 2+ [facility] Work Phone: Basophil percentageon 2021 Basophil percentage 50-100 SEEN /hpf 0-5 [facility] Work Phone: Basophils/100 WBC (Bld) 0.1 % 0-1 [facility] Work Phone: Bilirubin [Mass/Vol] 0.60 mg/dL 0.20-1.00 [facility] Work Phone: Comment on above: For patients on eltr ombopag therapy, use of Dimension [place] TBIL is not recommended. Chloride [Moles/Vol] 103 mmol/L 98-107 [facility] Work Phone: Eosinophils/100 WBC (Bld) 0.0 % 0-5 [facility] Work Phone: Glucose [Mass/Vol] 130 mg/dL 74-106 [facility] Work Phone: Comment on above: Fasting Glucose resu lt greater than or equal to 126 mg/dL suggests DIABETES MELLITUS per A.D.A. criteria. Neutrophils (Bld) [#/Vol] 10.9 10*3/uL 2.0-7.7 [facility] Work Phone: Neutrophils/100 WBC (Bld) 79.5 % 47-70 [facility] Work Phone: Potassium [Moles/Vol] 2.7 mmol/L 3.5-5.1 [facility] Work Phone: Comment on above: Critical Result(s) C alled at: 23:42:52 12/10/2021 by: CRISTAL Roberts [employer]. Results read back by same. Protein [Mass/Vol] 7.2 g/dL 6.4-8.2 [facility] Work Phone: Sodium [Moles/Vol] 137 mmol/L 136-145 [facility] Work Phone: WBC (Bld) [#/Vol] 13.7 10*3/uL 4.4-11.0 [facility] Work Phone: Bilirubin Test strip Ql (U)o n 12-10-2021 Bilirubin Ql (U) Negative Negative [facility] Work Phone: Blood erythrocytes count (nu mber/volume)on 12-10-2021 RBC (Bld) [#/Vol] 4.08 10*6/uL 4.2-5.4 [facility] Work Phone: Blood hemoglobin measurement (mass/volume)on 12-10-2021 Hemoglobin (Bld) [Mass/Vol] 12.3 g/dL 12.0-15.0 [facility] Work Phone: Blood lymphocytes/100 leukoc yteson 12-10-2021 Lymphocytes/100 WBC (Bld) 7.3 % 19-41 [facility] Work Phone: Blood manual differential co mment interpretation (narrative result)on 12-10-2021 Manual differential comment Sonny (Bld) [Interp] SCANNED [facility] Work Phone: Comment on above: MONOCYTOSIS NOTED Blood monocytes/100 leukocyt eson 12-10-2021 Monocytes/100 WBC (Bld) 12.5 % 0-10 [facility] Work Phone: Blood platelet mean volumeon 12-10-2021 Platelet mean volume (Bld) [Entitic vol] 9.2 fL 6.2-12.0 [facility] Work Phone: Determination of erythrocyte mean corpuscular volume (MCV)on 12-10-2021 MCV (RBC) [Entitic vol] 89.5 fL 81-99 [facility] Work Phone: Hematocrit Auto (Bld) [Volum e fraction]on 12-10-2021 Hematocrit (Bld) [Volume fraction] 36.5 % 37-47 [facility] Work Phone: Ketones Test strip Ql (U)on 12-10-2021 Ketones Ql (U) 150 mg/dl Negative [facility] Work Phone: Comment on above: CRITICAL VALUE *HCRI TICAL VALUE VERIFIED. CALLED TO Lida ROBERTS RN ER12/11/21 0013 Cristal Nicholas.RESULTS READ BACK BY SAME. Laboratory - Chemistry and C hemistry - challengeon 12-10-2021 ALP [Catalytic activity/Vol] 95 U/L 45-117 [facility] Work Phone: ALT [Catalytic activity/Vol] 48 U/L 13-56 [facility] Work Phone: CK [Catalytic activity/Vol] 5736 U/L 26-192 [facility] Work Phone: CO2 [Moles/Vol] 20.0 mmol/L 21.0-32.0 [facility] Work Phone: Globulin (S) [Mass/Vol] 4.0 g/dL 2.2-4.2 [facility] Work Phone: Magnesium [Mass/Vol] 2.2 mg/dL 1.6-2.6 [facility]: Urea nitrogen/Creatinine [Mass ratio] 30.9 mg/mg 10-20 [facility] Work Phone: Laboratory - Hematology and Cell countson 12-10-2021 Erythrocyte distribution width (RBC) [Entitic vol] 45.7 fL 35.1-43.9 [facility] Work Phone: Erythrocyte distribution width (RBC) [Ratio] 13.9 % 11.6-14.6 [facility] Work Phone: Immature granulocytes/100 WBC (Bld) 0.600 % 0.0-0.9 [facility] Work Phone: Comment on above: IG% - Immature Granu locytes (promyelocytes, myelocytes and metamyelocytes) > 1% indicates that a LEFT SHIFT is Present. MCH (RBC) [Entitic mass] 30.1 pg 27.0-32.0 [facility] Work Phone: Nucleated RBC/100 WBC (Bld) [Ratio] 0 % 0-5 [facility] Work Phone: MCHC Auto (RBC) [Mass/Vol]on 12-10-2021 MCHC (RBC) [Mass/Vol] 33.7 g/dL 32-36 [facility] Work Phone: Mucus LM Ql (Urine sed)on Mucus Ql (Urine sed) 0 SEEN /hpf [facility] Work Phone: Nitrite Test strip Ql (U)on 12-10-2021 Nitrite Ql (U) Negative Negative [facility] Work Phone: No Panel Informationon 12-10 Estimated Creatinine Clearance Calc 48.07 ml/min [facility] Work Phone: Estimated GFR (MDRD) Amer 84 mL/min >60 [facility] Work Phone: Comment on above: GFR Calc Estimated GFR (MDRD) Non-Af Amer 69 mL/min >60 [facility] Work Phone: Comment on above: Non- GFR Calc Platelets bldon 12-10-2021 Platelets (Bld) [#/Vol] 283 10*3/uL 150-450 [facility] Work Phone: Protein Test strip Ql (U)on 12-10-2021 Protein Ql (U) 100 mg/dl Negative [facility] Work Phone: Review by pathologiston 11-14 Pathologist review Sonny (Unsp spec) [Interp] October jermaine [facility] Work Phone: Serum or plasma albumin candice urement (mass/volume)on 12-10-2021 Albumin [Mass/Vol] 3.2 g/dL 3.2-5.0 [facility] Work Phone: Serum or plasma albumin/glob ulin mass ratioon 12-10-2021 Albumin/Globulin [Mass ratio] 0.8 {ratio} 0.9-2.4 [facility] Work Phone: Serum or plasma calcium candice urement (mass/volume)on 12-10-2021 Calcium [Mass/Vol] 8.7 mg/dL 8.5-10.1 [facility] Work Phone: Serum or plasma creatinine m easurement (mass/volume)on 12-10-2021 Creatinine [Mass/Vol] 0.84 mg/dL 0.55-1.02 [facility] Work Phone: Comment on above: The validity of the calculated GFR & GFRAA in patients over 70 years has not been determined. Clinical correlation is essential. Serum or plasma urea nitroge n measurement (mass/volume)on 12-10-2021 Urea nitrogen [Mass/Vol] 26 mg/dL 7-18 [facility] Work Phone: Squamous epithelial cells de tection in urine sediment by light microscopyon 12-10-2021 Epithelial cells.squamous LM Ql (Urine sed) 0 SEEN /hpf 5-10 [facility] Work Phone: Thin prep Papanicolaou smear with manual screeningon 12-10-2021 Thin prep Papanicolaou smear with manual screening 133 U/L 15-37 [facility] Work Phone: Thin prep Papanicolaou smear with manual screening 14 5-15 [facility] Work Phone: Urine blood detectionon 06-2 RBC Ql (U) 250 /ul Negative [facility] Work Phone: RBC Ql (U) 0-5 SEEN /hpf 0-5 [facility] Work Phone: Urine clarityon 12-10-2021 Clarity (U) Sl. Cloudy Clear [facility] Work Phone: Urine color determinationon 12-10-2021 Color (U) Yellow Yellow [facility] Work Phone: Urine glucose detectionon Glucose Ql (U) Normal mg/dl Normal [facility] Work Phone: Urine leukocyte esterase det ection by dipstickon 12-10-2021 Leukocyte esterase Test strip Ql (U) 100 /ul Negative [facility] Work Phone: Urine pHon 12-10-2021 pH (U) 6.0 [pH] 5.0 - 8.0 [facility] Work Phone: Urine sediment bacteria coun t by microscopy (number/high power field)on 12-10-2021 Bacteria LM.HPF (Urine sed) [#/Area] 4 /[HPF] None Seen [facility] Work Phone: Urine specific gravity measu rementon 12-10-2021 Specific gravity (U) [Rel density] 1.020 1.002-1.030 [facility] Work Phone: Urobilinogen Auto test strip Ql (U)on 12-10-2021 Urobilinogen Ql (U) 1 mg/dl Normal [facility] Work Phone: CT Up Ext w/o Contrast Lefto n 07-03-2020 CT Up Ext w/o Contrast Left [facility]: [id number] ACCESSION EXAM DATE/TIME PROCEDURE ORDERING PROVIDER [id number] 07/03/2020 13:[address] Up Ext w/o Contrast 59Aura -DAX SHANKS Left CPT code 34003 Reason For Exam (CT Up Ext w/o Contrast Left) Other closed displaced fracture of distal end of left humerus, initial encounter [S42.492A (ICD-10-CM)] Report Exam Type: CT Up Ext w/o Contrast Left Exam Date and Time: 07/03/2020 1:12 PM EST Indication: Distal left humeral fracture Comparison: None available. Technique: Axial CT imaging of the left elbow was obtained without contrast, followed by coronal and sagittal reconstructions. 3D reconstructions were created by the interpreting radiologist on an independent workstation for further fracture visualization.. Findings: There is an acute intra-articular comminuted fracture of the distal humerus involving the medial and lateral condyles. There is dislocation and rotation of the capitellum without its normal articulation with the radial head. No visualized fracture of the proximal radius or ulna. Ulnotrochlear alignment appears anatomic. There is an associated joint effusion. Extensive soft tissue swelling along the dorsal aspect of the elbow. Impression: Acute intra-articular comminuted fracture of the distal humerus involving the medial and lateral condyles. There is dislocation and rotation of the capitellum. Report Dictated on Workstation: [id number] Final Dictating Physician: MD MARTINEZ NEIL Signed Date and Time: 07/04/2020 11:25 am Signed by: MD MARTINEZ NEIL Transcribed Date and Time: 07/04/2020 11:26 Normal [facility] Culture, urine Bacteria identified Cx Nom (U) Presumptive E. coli [facility] Work Phone: Bacteria identified Cx Nom (U) Positive [facility] Work Phone: Laboratory - Microbiology an d Antimicrobial susceptibility Bacteria identified Cx Nom (Bld) No growth in 5 days. [facility] Work Phone: Vital Signs Date Time Vital Sign Value Performing Clinician Facility 10-05-2024 08:22-0400 Body mass index (BMI) [Ratio] 19.6 kg/m2 Dr. Nicci Lemus MD Work Phone: [facility] 10-05-2024 08:22-0400 Body weight 53.[address] Nicci Lemus MD Work Phone: [facility] 10-05-2024 08:22-0400 Diastolic blood pressure 65 mm[Hg] Dr. Nicci Lemus MD Work Phone: [facility] 10-05-2024 08:22-0400 Heart rate 75 /min Dr. Nicci Lemus MD Work Phone: [facility] 10-05-2024 08:22-0400 Respiratory rate 18 /min Dr. Nicci Lemus MD Work Phone: [facility] 10-05-2024 08:22-0400 Systolic blood pressure 111 mm[Hg] Dr. Nicci Lemus MD Work Phone: [facility] 09-08-2024 08:39-0400 Body mass index (BMI) [Ratio] 19.4 kg/m2 Dr. Nicci Lemus MD Work Phone: [facility] 09-08-2024 08:39-0400 Body temperature 97.5 [degF] Dr. Nicci Lemus MD Work Phone: [facility] 09-08-2024 08:39-0400 Body weight 53.[address] Nicci Lemus MD Work Phone: [facility] 09-08-2024 08:39-0400 Diastolic blood pressure 77 mm[Hg] Dr. Nicci Lemus MD Work Phone: [facility] 09-08-2024 08:39-0400 Heart rate 72 /min Dr. Nicci Lemus MD Work Phone: [facility] 09-08-2024 08:39-0400 Respiratory rate 18 /min Dr. Nicci Lemus MD Work Phone: [facility] 09-08-2024 08:39-0400 SaO2% (BldA) [Mass fraction] 99 % Dr. Nicci Lemus MD Work Phone: [facility] 09-08-2024 08:39-0400 Systolic blood pressure 121 mm[Hg] Dr. Nicci Lemus MD Work Phone: [facility] 07-19-2024 09:58-0500 Body height 165.[address] Nicci Lemus MD Work Phone: [facility] 07-19-2024 09:58-0500 Body mass index (BMI) [Ratio] 18.3 kg/m2 Dr. Nicci Lemus MD Work Phone: [facility] 07-19-2024 09:58-0500 Body temperature 98.6 [degF] Dr. Nicci Lemus MD Work Phone: [facility] 07-19-2024 09:58-0500 Body weight 49.[address] Nicci Lemus MD Work Phone: [facility] 07-19-2024 09:58-0500 Diastolic blood pressure 74 mm[Hg] Dr. Nicci Lemus MD Work Phone: [facility] 07-19-2024 09:58-0500 Heart rate 89 /min Dr. Nicci Lemus MD Work Phone: [facility] 07-19-2024 09:58-0500 Respiratory rate 15 /min Dr. Nicci Lemus MD Work Phone: [facility] 07-19-2024 09:58-0500 SaO2% (BldA) [Mass fraction] 96 % Dr. Nicci Lemus MD Work Phone: [facility] 07-19-2024 09:58-0500 Systolic blood pressure 108 mm[Hg] Dr. Nicci Lemus MD Work Phone: [facility] 07-21-2023 08:45-0500 Body temperature 98 [degF] Dr. Nicholas Cohen Work Phone: [facility] 07-21-2023 08:45-0500 Body weight 48.[address] Nicholas Cohen Work Phone: [facility] 07-21-2023 08:45-0500 Diastolic blood pressure 82 mm[Hg] Dr. Nicholas Cohen Work Phone: [facility] 07-21-2023 08:45-0500 Heart rate 70 /min Dr. Nicholas Cohen Work Phone: [phone](830)[phone] [address] 07-21-2023 08:45-0500 Respiratory rate 15 /min Dr. Nicholas Cohen Work Phone: [phone] [place] [address] 07-21-2023 08:45-0500 SaO2% (BldA) [Mass fraction] 98 % Dr. Nicholas Cohen Work Phone: [facility] 07-21-2023 08:45-0500 Systolic blood pressure 120 mm[Hg] Dr. Nicholas Cohen Work Phone: [facility] 05-14-2023 15:37-0500 Body height 156.21 cm Jaida Sanchez RN [facility]. 05-14-2023 15:37-0500 Body mass index (BMI) [Ratio] 19.61 kg/m2 [facility]. 05-14-2023 15:37-0500 Body surface area Derived from formula 1.45 m2 Jaida [facility].; [facility]. 05-14-2023 15:37-0500 Body weight 47.85 kg Jaida [facility].; [facility]. 05-14-2023 15:37-0500 Diastolic blood pressure 68 mm[Hg] Jaida Sanchez RN [facility].; [facility]. Comment on above: Patient Position: Sitting; Cuff Location : Left Arm; Cuff Size: Standard 05-14-2023 15:37-0500 Heart rate 53 /min Jaida Sanchez RN [facility].; [facility]. Comment on above: Pattern: Regular 05-14-2023 15:37-0500 Systolic blood pressure 117 mm[Hg] Jaida Sanchez RN [facility].; [facility]. Comment on above: Patient Position: Sitting; Cuff Location : Left Arm; Cuff Size: Standard 04-23-2023 11:48-0500 Body temperature 97.3 [degF] Dr. Lalo Palm Work Phone: [facility] 04-23-2023 11:48-0500 Diastolic blood pressure 68 mm[Hg] Dr. Lalo Palm Work Phone: [facility] 04-23-2023 11:48-0500 Heart rate 69 /min Dr. Lalo Palm Work Phone: [facility] 04-23-2023 11:48-0500 Respiratory rate 16 /min Dr. Lalo Palm Work Phone: [facility] 04-23-2023 11:48-0500 SaO2% (BldA) [Mass fraction] 97 % Dr. Lalo Palm Work Phone: [facility] 04-23-2023 11:48-0500 Systolic blood pressure 124 mm[Hg] Dr. Lalo Palm Work Phone: [facility] 04-23-2023 05:13-0500 Body mass index (BMI) [Ratio] 18.1 kg/m2 Dr. Lalo Palm Work Phone: [facility] 04-23-2023 05:13-0500 Body weight 49.[address] Lalo Palm Work Phone: [facility] 04-20-2023 14:09-0500 Body height [address] Lalo Palm Work Phone: [facility] 04-05-2023 11:42-0400 Body mass index (BMI) [Ratio] 17.8 kg/m2 Dr. Lalo Palm Work Phone: [facility] 04-05-2023 11:42-0400 Body temperature 97.8 [degF] Dr. Lalo Palm Work Phone: [facility] 04-05-2023 11:42-0400 Body weight 47.[address] Lalo Palm Work Phone: [facility] 04-05-2023 11:42-0400 Diastolic blood pressure 64 mm[Hg] Dr. Lalo Palm Work Phone: [facility] 04-05-2023 11:42-0400 Heart rate 50 /min Dr. Lalo Palm Work Phone: [facility] 04-05-2023 11:42-0400 Respiratory rate 14 /min Dr. Lalo Palm Work Phone: [facility] 04-05-2023 11:42-0400 SaO2% (BldA) [Mass fraction] 91 % Dr. Lalo Palm Work Phone: [facility] 04-05-2023 11:42-0400 Systolic blood pressure 106 mm[Hg] Dr. Lalo Palm Work Phone: [facility] 03-17-2023 08:45-0400 Body mass index (BMI) [Ratio] 18.3 kg/m2 Dr. Lalo Palm Work Phone: [facility] 03-17-2023 08:45-0400 Body temperature 98.8 [degF] Dr. Lalo Palm Work Phone: [facility] 03-17-2023 08:45-0400 Body weight 48.[address] Lalo Palm Work Phone: [facility] 03-17-2023 08:45-0400 Diastolic blood pressure 70 mm[Hg] Dr. Lalo Palm Work Phone: [facility] 03-17-2023 08:45-0400 Heart rate 71 /min Dr. Lalo Palm Work Phone: [facility] 03-17-2023 08:45-0400 Respiratory rate 16 /min Dr. Lalo Palm Work Phone: [facility] 03-17-2023 08:45-0400 SaO2% (BldA) [Mass fraction] 95 % Dr. Lalo Palm Work Phone: [facility] 03-17-2023 08:45-0400 Systolic blood pressure 128 mm[Hg] Dr. Lalo Palm Work Phone: [facility] 11-13-2022 10:17-0400 Body height 156.21 cm Sisi Thurman RN [facility] 11-13-2022 10:17-0400 Body mass index (BMI) [Ratio] 21.19 kg/m2 Sisi Thurman RN [facility], [facility]. 11-13-2022 10:17-0400 Body surface area Derived from formula 1.5 m2 Sisi Thurman RN [facility] 11-13-2022 10:17-0400 Body weight 51.71 kg Sisi Thurman RN [facility] 11-13-2022 10:17-0400 Diastolic blood pressure 78 mm[Hg] Sisi Thurman RN [facility] Comment on above: Patient Position: Sitting; Cuff Location : Left Arm; Cuff Size: Standard 11-13-2022 10:17-0400 Heart rate 57 /min Sisi Thurman RN [facility] [employer] [facility], [employer]. Comment on above: Pattern: Regular 11-13-2022 10:17-0400 Systolic blood pressure 127 mm[Hg] Sisi Santiagoes [facility].; [facility]. Comment on above: Patient Position: Sitting; Cuff Location : Left Arm; Cuff Size: Standard 06-30-2022 09:15-0500 Body height 156.21 cm DUNCAN PinchdTETTER LEATHER TACKER-C Work Phone: [facility]; [facility]. 06-30-2022 09:15-0500 Body mass index (BMI) [Ratio] 20.82 kg/m2 RecoversTETTER LEATHER TACKER-C Work Phone: [facility]; [facility]. 06-30-2022 09:15-0500 Body surface area Derived from formula 1.49 m2 Job1001TTER LEATHER TACKER-C Work Phone: [facility]; [facility]. 06-30-2022 09:15-0500 Body weight 50.8 kg RecoversTETTER LEATHER TACKER-C Work Phone: [facility]; [facility]. 06-30-2022 09:15-0500 Diastolic blood pressure 68 mm[Hg] RecoversTETTER LEATHER TACKER-C Work Phone: [facility]; [facility]. Comment on above: Patient Position: Sitting; Cuff Location : Left Arm; Cuff Size: Standard 06-30-2022 09:15-0500 Heart rate 59 /min RecoversTETTER LEATHER TACKER-C Work Phone: [facility]; [facility]. Comment on above: Pattern: Regular 06-30-2022 09:15-0500 Inhaled oxygen concentration 21 % RecoversTETTER LEATHER TACKER-C Work Phone: [facility]; [facility] Comment on above: Room air 06-30-2022 09:15-0500 SaO2% (BldA) [Mass fraction] 92 % DUNCAN ZAVALA LEATHER TACKER-C Work Phone: [facility]; [facility]. 06-30-2022 09:15-0500 Systolic blood pressure 114 mm[Hg] DUNCAN ZAVALA LEATHER TACKER-C Work Phone: [facility]; [facility] Comment on above: Patient Position: Sitting; Cuff Location : Left Arm; Cuff Size: Standard 04-07-2022 11:05-0400 Body height 156.21 cm [facility]. 04-07-2022 11:05-0400 Body mass index (BMI) [Ratio] 23.42 kg/m2 [facility].; [facility]. 04-07-2022 11:05-0400 Body surface area Derived from formula 1.56 m2 [facility].; [facility]. 04-07-2022 11:05-0400 Body weight 57.15 kg [facility].; [facility]. 04-07-2022 11:05-0400 Diastolic blood pressure 70 mm[Hg] [facility].; [facility]. Comment on above: Patient Position: Sitting; Cuff Location : Left Arm; Cuff Size: Standard 04-07-2022 11:05-0400 Heart rate 51 /min [facility].; [facility] Comment on above: Pattern: Regular 04-07-2022 11:05-0400 Inhaled oxygen concentration 21 % [facility].; [facility]. Comment on above: Room air 04-07-2022 11:05-0400 SaO2% (BldA) [Mass fraction] 98 % [facility] 04-07-2022 11:05-0400 Systolic blood pressure 159 mm[Hg] [facility].; [facility]. Comment on above: Patient Position: Sitting; Cuff Location : Left Arm; Cuff Size: Standard 02-15-2022 15:09-0400 Diastolic blood pressure 68 mm[Hg] Dr. Lalo Palm Work Phone: [facility] Work Phone: 02-15-2022 15:09-0400 Systolic blood pressure 124 mm[Hg] Dr. Lalo Palm Work Phone: [facility] Work Phone: 02-15-2022 14:11-0400 Heart rate 59 /min Dr. Lalo Palm Work Phone: [facility] Work Phone: 02-15-2022 14:11-0400 Respiratory rate 14 /min Dr. Lalo Palm Work Phone: [facility] Work Phone: 02-15-2022 14:11-0400 SaO2% (BldA) [Mass fraction] 96 % Dr. Lalo Palm Work Phone: [facility] Work Phone: 02-15-2022 12:17-0400 Body height 162.[address] Lalo Palm Work Phone: [facility] Work Phone: 02-15-2022 12:17-0400 Body mass index (BMI) [Ratio] 21.9 kg/m2 Dr. Lalo Palm Work Phone: [facility] Work Phone: 02-15-2022 12:17-0400 Body temperature 96.9 [degF] Dr. Lalo Palm Work Phone: [facility] Work Phone: 02-15-2022 12:17-0400 Body weight 58.[address] Lalo Palm Work Phone: [facility] Work Phone: 02-11-2022 10:59-0400 Body mass index (BMI) [Ratio] 23.1 kg/m2 Dr. Lalo Palm Work Phone: [facility] Work Phone: 02-11-2022 10:59-0400 Body temperature 98.2 [degF] Dr. Laol Palm Work Phone: [facility] Work Phone: 02-11-2022 10:59-0400 Body weight 59.[address] Lalo Palm Work Phone: [facility] Work Phone: 02-11-2022 10:59-0400 Diastolic blood pressure 80 mm[Hg] Dr. Lalo Palm Work Phone: [facility] Work Phone: 02-11-2022 10:59-0400 Heart rate 57 /min Dr. Lalo Palm Work Phone: [facility] Work Phone: 02-11-2022 10:59-0400 Respiratory rate 16 /min Dr. Lalo Palm Work Phone: [facility] Work Phone: 02-11-2022 10:59-0400 SaO2% (BldA) [Mass fraction] 97 % Dr. Lalo Palm Work Phone: [facility] Work Phone: 02-11-2022 10:59-0400 Systolic blood pressure 130 mm[Hg] Dr. Lalo Palm Work Phone: [facility] Work Phone: 12-28-2021 10:24-0400 Body temperature 98 [degF] Dr. Lalo Palm Work Phone: [facility] Work Phone: 12-28-2021 10:24-0400 Diastolic blood pressure 60 mm[Hg] Dr. Lalo Palm Work Phone: [facility] Work Phone: 12-28-2021 10:24-0400 Heart rate 67 /min Dr. Lalo Palm Work Phone: [facility] Work Phone: 12-28-2021 10:24-0400 Respiratory rate 16 /min Dr. Lalo Palm Work Phone: [facility] Work Phone: 12-28-2021 10:24-0400 SaO2% (BldA) [Mass fraction] 95 % Dr. Lalo Palm Work Phone: [facility] Work Phone: 12-28-2021 10:24-0400 Systolic blood pressure 114 mm[Hg] Dr. Lalo Palm Work Phone: [facility] Work Phone: 12-26-2021 20:32-0400 Diastolic blood pressure 69 mm[Hg] Dr. Lalo Palm Work Phone: [facility] Work Phone: 12-26-2021 20:32-0400 Heart rate 79 /min Dr. Lalo Palm Work Phone: [facility] Work Phone: 12-26-2021 20:32-0400 Systolic blood pressure 126 mm[Hg] Dr. Lalo Palm Work Phone: [facility] Work Phone: 12-26-2021 15:59-0400 Body temperature 97.4 [degF] Dr. Lalo Palm Work Phone: [facility] Work Phone: 12-26-2021 15:59-0400 Respiratory rate 18 /min Dr. Lalo Palm Work Phone: [facility] Work Phone: 12-26-2021 15:59-0400 SaO2% (BldA) [Mass fraction] 98 % Dr. Lalo Palm Work Phone: [facility] Work Phone: 12-25-2021 16:45-0400 Body height [address] Lalo Palm Work Phone: [facility] Work Phone: 12-25-2021 16:45-0400 Body weight 58.[address] Lalo Palm Work Phone: [facility] Work Phone: 12-13-2021 16:09-0400 Body mass index (BMI) [Ratio] 23.3 kg/m2 Dr. Lalo Palm Work Phone: [facility] Work Phone: 12-13-2021 15:17-0400 Body temperature 97.9 [degF] Dr. Lalo Palm Work Phone: [facility] Work Phone: 12-13-2021 15:17-0400 Diastolic blood pressure 74 mm[Hg] Dr. Lalo Palm Work Phone: [facility] Work Phone: 12-13-2021 15:17-0400 Heart rate 68 /min Dr. Lalo Palm Work Phone: [facility] Work Phone: 12-13-2021 15:17-0400 Respiratory rate 18 /min Dr. Lalo Palm Work Phone: [facility] Work Phone: 12-13-2021 15:17-0400 SaO2% (BldA) [Mass fraction] 98 % Dr. Lalo Palm Work Phone: [facility] Work Phone: 12-13-2021 15:17-0400 Systolic blood pressure 142 mm[Hg] Dr. Lalo Palm Work Phone: [facility] Work Phone: 12-13-2021 06:00-0400 Body weight 63.[address] Lalo Palm Work Phone: [facility] Work Phone: 12-11-2021 14:03-0400 Body height [address] Lalo Palm Work Phone: [facility] Work Phone: 12-11-2021 01:45-0400 Body mass index (BMI) [Ratio] 16.7 kg/m2 Dr. Lalo Palm Work Phone: [facility] Work Phone: 12-11-2021 01:03-0400 Body temperature 98.6 [degF] Dr. Lalo Palm Work Phone: [facility] Work Phone: 12-11-2021 01:03-0400 Diastolic blood pressure 69 mm[Hg] Dr. Lalo Palm Work Phone: [facility] Work Phone: 12-11-2021 01:03-0400 Heart rate 86 /min Dr. Lalo Palm Work Phone: [facility] Work Phone: 12-11-2021 01:03-0400 Respiratory rate 15 /min Dr. Lalo Palm Work Phone: [facility] Work Phone: 12-11-2021 01:03-0400 SaO2% (BldA) [Mass fraction] 94 % Dr. Lalo Palm Work Phone: [facility] Work Phone: 12-11-2021 01:03-0400 Systolic blood pressure 120 mm[Hg] Dr. Lalo Palm Work Phone: [facility] Work Phone: 12-10-2021 22:22-0400 Inhaled oxygen flow rate 3 L/min Dr. Lalo aPlm Work Phone: [facility] Work Phone: 12-10-2021 20:16-0400 Body height 165.[address] Lalo Palm Work Phone: [facility] Work Phone: 12-10-2021 20:16-0400 Body mass index (BMI) [Ratio] 22.3 kg/m2 Dr. Lalo Palm Work Phone: [facility] Work Phone: 12-10-2021 20:16-0400 Body weight 60.[address] Lalo Palm Work Phone: [facility] Work Phone: 09-26-2021 15:46-0400 Body temperature 97.8 [degF] Dr. Lalo Palm Work Phone: [facility] Work Phone: 09-26-2021 15:46-0400 Diastolic blood pressure 80 mm[Hg] Dr. Lalo Palm Work Phone: [facility] Work Phone: 09-26-2021 15:46-0400 Heart rate 91 /min Dr. Lalo Palm Work Phone: [facility] Work Phone: 09-26-2021 15:46-0400 Respiratory rate 16 /min Dr. Lalo Palm Work Phone: [facility] Work Phone: 09-26-2021 15:46-0400 SaO2% (BldA) [Mass fraction] 96 % Dr. Lalo Palm Work Phone: [facility] Work Phone: 09-26-2021 15:46-0400 Systolic blood pressure 128 mm[Hg] Dr. Lalo Palm Work Phone: [facility] Work Phone: Encounters Encounter Date Encounter Type Care Provider Facility Start: 12-09-2024 ambulatory Willian Palm Facility:[facility] Start: 11-28-2024 ambulatory Willian Palm Facility:[facility] Start: 11-08-2024 ambulatory Sharon Miko Facility:[facility] Start: 11-08-2024 End: 11-08-2024 ambulatory Efewongbe Oleghe Facility:[facility] Start: 10-31-2024 End: 10-31-2024 ambulatory Efewongbe Olejuanitae OLS Facility:[facility] Start: 10-05-2024 End: 10-05-[address] Yunior Desai MD -[facility] Work Phone: Start: 10-05-2024 End: 10-05-2024 ambulatory Efewdion Wu Facility:[facility] Start: 10-03-2024 End: 10-03-[address] Nicci Lemus MD Work Phone: [facility] Work Phone: Start: 10-03-2024 End: 10-03-2024 Departed Referred Genevieve Polo/Arsenio Start: 10-03-2024 End: 10-03-2024 ambulatory Efewdion Wu OLS Facility:[facility] Start: 09-08-2024 End: 09-08-[address] Willian Palm DO -[place] [facility] Work Phone: Start: 09-08-2024 End: 09-08-2024 ambulatory Willian Palm Facility:[facility] Start: 08-29-2024 End: 08-29-2024 Departed Referred Genevieve Polo/Arsenio Start: 08-29-2024 End: 08-29-2024 ambulatory Efewdion Wu OLS Facility:[facility] Start: 08-11-2024 End: 08-11-2024 ambulatory MARCOS Saldana [facility] Start: 08-03-2024 End: 08-03-[address] Genevieve Wu MD -Cat [facility] Work Phone: Start: 08-03-2024 End: 08-03-2024 ambulatory Gerardodion Wu Facility:[facility] Start: 08-01-2024 ambulatory Genevieve Wu OLS Fa cility:[facility] Start: 08-01-2024 Registered Referred Genevieve Wu MD -[facility] Start: 07-19-2024 End: 07-19-[address] Vish Cook MD -[place] [facility] Work Phone: Start: 07-19-2024 End: 07-19-2024 ambulatory Vish Cook Facility:[facility] Start: 07-12-2024 End: 07-12-2024 ambulatory Gerardodion Blackjuanitadrew Facility:[facility] Start: 07-12-2024 End: 07-12-[address] Genevieve Wu MD -[facility] Work Phone: Start: 07-04-2024 End: 07-04-2024 ambulatory Barbara Castro NP Facility:[facility] Start: 07-04-2024 End: 07-04-2024 Patient encounter procedure Barbara Castro COLLISION TECHNICIAN-C -[facility] Work Phone: Start: 06-30-2024 ambulatory Nicci Kimblenhaus Facility:[facility] Start: 06-30-2024 Registered Referred Genevieve Wu MD -[facility] Start: 06-27-2024 End: 06-27-2024 ambulatory Barbara Castro COLLISION TECHNICIAN Facility:[facility] Start: 06-23-2024 ambulatory Nicci Kornhaus Facility:[facility] Start: 06-21-2024 End: 06-21-2024 ambulatory Genevieve Wu Facility:[facility] Start: 06-20-2024 End: 06-20-2024 ambulatory Barbara Castro COLLISION TECHNICIAN Facility:[facility] Start: 06-17-2024 ambulatory [facility] Facility:[facility] Start: 06-16-2024 End: 06-16-2024 ambulatory Barbara Castro TARA Facility:[facility] Start: 06-11-2024 End: 06-11-2024 ambulatory [facility] Facility:[facility] Start: 06-07-2024 End: 06-14-2024 ambulatory Hilaria Villagran Facility:[facility] Start: 05-30-2024 End: 05-30-2024 Emergency department patient visit [facility] Facility:[facility] Start: 02-23-2024 End: 02-23-2024 Historical Summary DUNCAN ZAVALA LEATHER TACKER-C Work Phone: [facility] Start: 02-05-2024 End: 02-05-2024 ambulatory [facility] Start: 01-19-2024 End: 01-19-2024 ambulatory Vish Joellemaddison Facility:[facility] Start: 10-08-2023 End: 10-08-2023 ambulatory [facility] Start: 08-17-2023 End: 08-17-[address] Nicholas Cohen Work Phone: [facility] Work Phone: Start: 08-17-2023 End: 08-17-[address] Nicholas Cohen Work Phone: [facility] Work Phone: Start: 08-14-2023 End: 08-14-[address] Nicholas Cohen Work Phone: [facility] Work Phone: Start: 08-14-2023 End: 08-14-[address] [facility] Work Phone: Start: 08-10-2023 End: 08-10-[address] Nicholas Cohen Work Phone: [facility] Work Phone: Start: 07-21-2023 End: 07-21-[address] Nicholas Cohen Work Phone: [facility] [facility] Work Phone: Start: 05-25-2023 End: 05-25-[address] Lalo Palm Work Phone: [facility] Work Phone: Start: 05-25-2023 End: 05-25-[address] Lalo Palm Work Phone: [facility] Work Phone: Start: 05-25-[address] Kamari Palm Work Phone: [facility] Therapy Work Phone: Start: 05-14-2023 End: 05-14-2023 Office outpatient visit 15 minutes DUNCAN ZAVALA LEATHER TACKER-C Work Phone: [facility] Start: 04-23-2023 Non-patient / Non-visit Dr. Lalo Palm Work Phone: [facility] Work Phone: Start: 04-22-2023 Non-patient / Non-visit Dr. Lalo Palm Work Phone: [facility] Work Phone: Start: 04-21-2023 Non-patient / Non-visit Dr. Lalo Palm Work Phone: [facility] Work Phone: Start: 04-20-2023 Non-patient / Non-visit Dr. Lalo Palm Work Phone: [facility] Work Phone: Start: 04-19-2023 Non-patient / Non-visit Dr. Lalo Palm Work Phone: [facility] Work Phone: Start: 04-18-2023 Non-patient / Non-visit Dr. Lalo Palm Work Phone: [facility] Work Phone: Start: 04-17-2023 Non-patient / Non-visit Dr. Lalo Palm Work Phone: [facility] Work Phone: Start: 04-16-2023 End: 04-23-2023 Evaluation and management of inpatient Dr. Lalo Palm Work Phone: [facility]-Medical Surgical 3 Work Phone: Start: 04-05-2023 End: 04-05-[address] Lalo Palm Work Phone: [facility]-Laboratory, Specimen Work Phone: Start: 04-05-2023 End: 04-05-[address] Lalo Palm Work Phone: [facility] Work Phone: Start: 03-17-2023 End: 03-17-[address] Lalo Palm Work Phone: [facility] Work Phone: Start: 11-17-2022 End: 11-17-2022 Results Review DUNCAN VALDEZP-C Work Phone: [facility] Start: 11-13-2022 End: 11-18-[address] NICCI LEMUS MD Facility:A Start: 11-13-2022 End: 11-13-2022 Patient encounter procedure DUNCAN VALDEZP-C Work Phone: [facility] Start: 11-13-2022 End: 11-13-2022 Office outpatient visit 15 minutes DUNCAN ZAVALA LEATHER TACKER-C Work Phone: [facility] [employer] Start: 08-04-2022 End: 08-04-2022 Historical Summary DUNCAN ZAVALA LEATHER TACKER-C Work Phone: [facility] Start: 07-04-2022 End: 07-04-2022 Patient encounter procedure DUNCAN BERNSTEINER LEATHER TACKER-C Work Phone: [facility] [employer] Start: 07-01-2022 End: 07-01-2022 Results Review DUNCAN BERNSTEINER LEATHER TACKER-C Work Phone: [facility] [employer] Start: 06-30-2022 End: 06-30-2022 Lab Only DUNCAN BERNSTEINER LEATHER TACKER-C Work Phone: [facility] [employer] Start: 06-30-2022 End: 06-30-2022 Office outpatient visit 25 minutes DUNCAN ZAVALA LEATHER TACKER-C Work Phone: [facility] Start: 04-24-2022 End: 04-24-2022 Phone Encounter DUNCAN ZAVALA LEATHER TACKER-C Work Phone: [facility] [employer] Start: 04-23-2022 End: 04-23-2022 Medication Refill/Order DUNCAN BERNSTEINER LEATHER TACKER-C Work Phone: [facility] [employer] Start: 04-07-2022 End: 04-07-2022 Office outpatient new 60 minutes DUNCAN BERNSTEINER LEATHER TACKER-C Work Phone: [facility] [employer] [facility] [employer] Start: 02-15-2022 End: 02-15-2022 Emergency department patient visit Dr. Lalo Palm Work Phone: [facility]-Emergency Department Start: 02-11-2022 End: 02-11-[address] Lalo Palm Work Phone: [facility] Work Phone: Start: 02-11-2022 End: 02-11-[address] Lalo Palm Work Phone: [facility] Start: 02-11-2022 End: 02-11-[address] Lalo Palm Work Phone: [facility] Neurology Start: 12-24-2021 End: 12-24-[address] Lalo Palm Work Phone: [facility] Start: 12-13-2021 End: 12-28-2021 Evaluation and management of inpatient Dr. Lalo Palm Work Phone: [facility]-Transitional Care Unit Start: 12-13-2021 Non-patient / Non-visit Dr. Lalo Palm Work Phone: [facility] Start: 12-12-2021 Non-patient / Non-visit Dr. Lalo Palm Work Phone: [facility] Start: 12-11-2021 End: 12-13-2021 Evaluation and management of inpatient Dr. Lalo Palm Work Phone: [facility] Surgical 3 Start: 10-29-2021 Non-patient / Non-visit Dr. Lalo Palm Work Phone: [facility] Start: 09-26-2021 End: 09-26-[address] Lalo Palm Work Phone: [facility] Internal Medicine Start: 07-03-2020 End: 07-03-2020 Subsequent hospital visit by physician Gerson Adamson Work Phone: [facility] Comment on above: Other closed displac ed fracture of distal end of left humerus, initial encounter Procedures Date Procedure Procedure Detail Performing Clinician Start: 10-03-2024 Vitamin D, 25-hydrox y measurement Dr. Nicci Lemus MD Work Phone: Comment on above: Vitamin D StatusDefi ciency: <20 ng/mL (50nmol/L)Insufficiency: 20-30 ng/mL (50-75 nmol/L)Sufficiency: 30-100 ng/mL (75-250 nmol/L)Toxicity: >100 ng/mL (>250 nmol/L) Start: 08-03-2024 CT of thorax with contrast Dr. Nicci Lemus MD Work Phone: Start: 08-01-2024 Measurement of renal function Dr. Nicci Lemus MD Work Phone: Comment on above: GFR Calc Start: 06-30-2024 Measurement of renal function Dr. Nicci Lemus MD Work Phone: Comment on above: GFR Calc Start: 08-17-2023 Plain chest X-ray Dr. Bailee Cohen Work Phone: Start: 08-14-[address] John Cohen Work Phone: Start: 05-14-2023 End: 05-14-2023 Dischrg meds reconciled w/current med list R NICCI LEMUS MD Work Phone: Start: 04-16-2023 Plain chest X-ray Dr. Bailee Palm Work Phone: Start: 04-16-2023 Legionella pneumophi la antigen assay Dr. Lalo Palm Work Phone: Start: 04-16-[address] Lalo Palm Work Phone: Start: 04-16-2023 Streptococcus pneumo niae Antigen (M Dr. Lalo Palm Work Phone: Start: 04-16-[address] Kamari Palm Work Phone: Start: 04-05-[address] Kamari Palm Work Phone: Start: 11-13-2022 End: 11-13-2022 Dischrg meds reconciled w/current med list Tucker LEMUS MD Work Phone: Start: 06-30-2022 End: 06-30-2022 Dischrg meds reconciled w/current med list Tucker LEMUS MD Work Phone: Start: 04-23-2022 End: 04-23-2022 Collj & interpj physiol data min 30 min ea 30 d DAYANNA BONNY RN Start: 04-07-2022 End: 04-07-2022 Collj & interpj physiol data min 30 min ea 30 d Tucker LEMUS MD Work Phone: Start: 04-07-2022 End: 04-07-2022 Dischrg meds reconciled w/current med list Tucker LEMUS MD Work Phone: Start: 12-24-2021 MRI of brain without contrast Dr. Lalo Palm Work Phone: Start: 12-10-2021 Plain chest X-ray Dr. Bailee Palm Work Phone: Start: 12-10-2021 CT cervical spine wi thout contrast Dr. Lalo Palm Work Phone: Start: 12-10-2021 CT of head without contrast Dr. Lalo Palm Work Phone: Bacteria identified in Blood by Culture Dr. Lalo Palm Work Phone: Femur fractured at b all. Screws and plates placed IVÁNEDWIN MAGALLON Comment on above: 2016 Shoulder surgery IVÁN JALEN COLON Comment on above: [address] Lalo parra Work Phone: Viral antigen assay Dr. Willie Palm Work Phone: Plan of Treatment Date Care Activity Detail Author Start: 04-23-2023 Patient discharge [facility] Start: 04-18-[address] [facility] Start: 04-16-2023 Application of intermittent pneumatic compression device [facility] Start: 04-16-2023 Aspiration precautions [facility] Start: 04-16-2023 Assessment of risk o f venous thromboembolism [facility] Start: 04-16-2023 Fall prevention [facility] Start: 04-16-2023 Inhalation therapy procedure [facility] Start: 04-16-2023 Insertion of cathete r into peripheral vein [facility] Start: 04-16-2023 Introduction of urin inga catheter [facility] Start: 04-16-2023 Measuring intake and output [facility] Start: 04-16-2023 Providing care accor ding to standard [facility] Start: 04-16-2023 Provision of activit y privileges [facility] Start: 04-16-2023 Referral to occupati onal therapist [facility] Start: 04-16-2023 Referral to service [facility] Start: 04-16-[address] [facility] Start: 04-16-2023 Following clinical pathway protocol [facility] Start: 04-16-2023 Admission procedure [facility] Start: 04-16-2023 Patient referral to dietitian [facility] Start: 11-13-2022 Blood occult peroxid ase actv qual feces 1 deter [facility] Start: 11-13-2022 Blood count complete auto&auto difrntl wbc [facility] Start: 06-30-2022 Cv strs tst xers&/or rx cont ecg w/si&r CARDIOVASCULAR STRESS [id number] ISCAN- WITH IMAGING - ([id number]) ([id number]) Start: 30-Jun-2022 Intent [facility] Start: 06-30-2022 Ecg routine ecg w/le ast 12 lds w/i&r ELECTROCARDIOGRAM, COMPLETE ([id number]) Start: 30-Jun-2022 Intent [facility] Start: 04-28-2022 Assay of iron [facility] Start: 04-28-2022 Blood count complete auto&auto difrntl wbc [facility]; [facility] Start: 04-28-2022 Comprehensive metabo lic panel [facility]; [facility] Start: 04-07-2022 Adv care pln tlkd & alt dcsn maker docd ADV CARE PLAN DISCUSSED & DOCUMENTED, SURROGATE OR PLAN IN PLACE (1123F) Start: 07-Apr-2022 Intent [facility]; [facility] Start: 02-11-2022 Thiamine measurement [facility] Work Phone: Start: 02-01-2022 Blood chemistry [facility] Work Phone: Start: 01-25-2022 Blood chemistry [facility] Work Phone: Start: 01-18-2022 Blood chemistry [facility] Work Phone: Start: 01-11-2022 Blood chemistry [facility] Work Phone: Start: 01-04-2022 Blood chemistry [facility] Work Phone: Start: 12-29-2021 Development of care plan [facility] Work Phone: Start: 12-28-2021 Blood chemistry [facility] Work Phone: Start: 12-28-2021 Patient discharge [facility] Work Phone: Start: 12-27-2021 Referral to service [facility] Work Phone: Start: 12-24-[address] [facility] Work Phone: Start: 12-23-2021 End: 12-24-2021 [facility] Work Phone: Start: 12-21-2021 Development of care plan [facility] Work Phone: Start: 12-20-2021 End: 12-20-2021 [facility] Work Phone: Start: 12-19-[address] [facility] Work Phone: Start: 12-18-2021 Blood chemistry [facility] Work Phone: Start: 12-17-2021 Speech therapy management [facility] Work Phone: Start: 12-17-2021 Blood chemistry [facility] Work Phone: Start: 12-17-[address] [facility] Work Phone: Start: 12-16-2021 Speech therapy assessment [facility] Work Phone: Start: 12-16-2021 Blood chemistry [facility] Work Phone: Start: 12-16-[address] [facility] Work Phone: Start: 12-15-2021 Blood chemistry [facility] Work Phone: Start: 12-14-2021 Development of care plan [facility] Work Phone: Start: 12-14-2021 Patient referral to dietitian [facility] Work Phone: Start: 12-14-2021 Developing a treatme nt plan [facility] Work Phone: Start: 12-14-2021 Blood chemistry [facility] Work Phone: Start: 12-13-2021 Verification routine [facility] Work Phone: Start: 12-13-2021 Following clinical pathway protocol [facility] Work Phone: Start: 12-13-2021 Admission procedure [facility] Work Phone: Start: 12-13-2021 Measuring intake and output [facility] Work Phone: Start: 12-13-2021 Patient referral to dietitian [facility] Work Phone: Start: 12-13-2021 Referral to occupati onal therapist [facility] Work Phone: Start: 12-13-2021 Referral to service [facility] Work Phone: Start: 12-13-2021 Vital signs measurements [facility] Work Phone: Start: 12-13-2021 End: 12-14-2021 [facility] Work Phone: Start: 12-13-2021 Patient discharge [facility] Work Phone: Start: 12-11-2021 End: 12-12-2021 [facility] Work Phone: Start: 12-11-2021 End: 12-11-2021 Blood culture [facility] Work Phone: Start: 12-11-2021 Application of intermittent pneumatic compression device [facility] Work Phone: Start: 12-11-2021 Following clinical pathway protocol [facility] Work Phone: Start: 12-11-2021 Aspiration precautions [facility] Work Phone: Start: 12-11-2021 Assessment of risk o f venous thromboembolism [facility] Work Phone: Start: 12-11-2021 Fall prevention [facility] Work Phone: Start: 12-11-2021 Incentive spirometry [facility] Work Phone: Start: 12-11-2021 Inhalation therapy procedure [facility] Work Phone: Start: 12-11-2021 Insertion of cathete r into peripheral vein [facility] Work Phone: Start: 12-11-2021 Introduction of urin inga catheter [facility] Work Phone: Start: 12-11-2021 Measuring intake and output [facility] Work Phone: Start: 12-11-2021 Oxygen therapy [facility] Work Phone: Start: 12-11-2021 Providing care accor ding to standard [facility] Work Phone: Start: 12-11-2021 Provision of activit y privileges [facility] Work Phone: Start: 12-11-2021 Referral to occupati onal therapist [facility] Work Phone: Start: 12-11-2021 Referral to service [facility] Work Phone: Start: 12-11-2021 End: 12-11-2021 [facility] Work Phone: Start: 12-11-2021 Verification routine [facility] Work Phone: Start: 12-11-2021 Admission procedure [facility] Work Phone: Start: 12-11-2021 Patient referral to dietitian [facility] Work Phone: Start: 12-10-[address] [facility] Work Phone: Start: 10-29-2021 Patient referral [facility] Work Phone: Start: 06-27-2020 Annual Wellness Visi t (AWV) Annual Wellness Visit (AWV) [place], [place] Start: 02-14-2020 Influenza vaccination Flu vaccine (# 1) [place], [place] Start: 01-18-1996 Screening for osteoporosis DEXA (modify frequency per FRAX score) [place], [place] Start: 1991 Shingles Vaccine (1 of 2) Buitrago gles Vaccine (1 of 2) [place], [place] Start: 01-18-1960 DTaP/Tdap/Td vaccine (1 - Tdap) DTaP/Tdap/Td vaccine (1 - Tdap) [place], [place] Start: 1941 Hepatitis C screening Hepatitis C sc reen [place], [place] Bacteria identified in Blood by Culture Blood Culture [facility] Work Phone: Blood culture [facility] Work Phone: CT Chest WO contrast [facility] End: 07-03-2020 CT ELBOW LEFT WO CONTRAST [facility] [place] Comment on above: 1 Occurrences starti ng 07/03/2020 until 07/03/2020 End: 07-03-2020 CT UPPER EXTREMITY LEFT WO CONTRAST CT UPPER EXTREMITY LEFT WO CONTRAST Imaging Routine Once for 1 Occurrences starting 07/03/2020 until 07/03/2020 [facility] [place] Comment on above: Once for 1 Occurrenc es starting 07/03/2020 until 07/03/2020 CT UPPER EXTREMITY L EFT WO CONTRAST CT UPPER EXTREMITY LEFT WO CONTRAST Imaging Routine 07/03/2020 12:46 PM EST [facility] [place] MR Brain WO contrast [facility] Work Phone: Patient Education ED Hypotension , Orthostatic ED Fainting, Uncertain Cause [facility] Work Phone: Patient referral [facility] Work Phone: Thiamine measurement [facility] Work Phone: [facility] Immunizations Immunization Date Immunization Notes Care Provider Fa [facility] 05-14-2023 influenza, injectabl e, quadrivalent, preservative free DUNCAN PLATTTEDEIRDRE LEATHER TACKER-C Work Phone: [facility] Comment on above: Site: Right ArmVIS G iven: * Influenza (Flu) Vaccine (Inactivated or Recombinant) (01/18/21) 05-14-2023 influenza virus vacc ine, unspecified formulation DUNCAN PLATTTEDEIRDRE LEATHER TACKER-C Work Phone: [facility] Comment on above: Had immunization. 01-02-2021 Covid (Pfizer) Dr. Lalo marquis Work Phone: [facility] 12-12-2020 Covid (Pfizer) Dr. Lalo marquis Work Phone: [facility] 06-18-[address] Lalo Palm Work Phone: [facility] 01-07-2018 pneumococcal polysaccharide vaccine, [address] Lalo Palm Work Phone: [facility] 01-07-[address] Bhavin Palm Work Phone: [facility] Work Phone: 01-07-2018 pneumococcal vaccine , unspecified formulation Dr. Lalo Palm Work Phone: [facility] 06-04-2001 TD(adult) unspecifie d formulation Dr. Lalo Palm Work Phone: [facility] Payers Date Payer Category Payer Self-pay [id number] 2020 Medicare AETNA MEDICARE A ETNA MEDICARE-ADVANTAGE PPO [id number] 2020-Present [address] [place] [address] Medicare [id number] 2006 Private Health Insurance [id number] 1941 Unknown [id number] 2..840.1.562852.3.579.2.6 27 1941 Unknown [id number] 2.840.1.417499.3.579.2.6 51 1941 Unknown [id number] 2.16.840.1.199171.3.579.2.6 51 1941 Unknown [id number] 2.16840.1.515949.3.579.2.6 51 Medicare [id number] Unknown [facility] PACKAGE PLAN [id number] Unknown [id number] 2.16.840.1.100451.3.579.2.4 62 Unknown [id number] 2.16.840.1.257097.3.579.2.4 62 Unknown [id number] 2.16.840.1.110909.3.579.2.4 62 Unknown [id number] 2.16.840.1.940542.3.579.2.4 62 Unknown [id number] 2.16.840.1.735861.3.579.2.4 62 Unknown [id number] 2.16.840.1.562524.3.579.2.4 62 Unknown [id number] 2.16.840.1.495041.3.579.2.4 62 Unknown [id number] 2.16.840.1.880240.3.579.2.4 62 Unknown [id number] 2.16.840.1.276142.3.579.2.4 62 Unknown [id number] 2.16.840.1.750347.3.579.2.4 62 Unknown [id number] 2.16.840.1.315748.3.579.2.4 62 Unknown [id number] 2.16.840.1.515226.3.579.2.4 62 Unknown [id number] 2.16.840.1.756647.3.579.2.4 62 Unknown [id number] 2.16.840.1.429150.3.579.2.4 62 Unknown [id number] 2.16.840.1.783467.3.579.2.4 62 Unknown [id number] 2.16.840.1.490186.3.579.2.4 62 Unknown [id number] 2.16.840.1.709646.3.579.2.4 62 Unknown [id number] 2.16.840.1.492643.3.579.2.4 62 Unknown [id number] 2.16.840.1.996347.3.579.2.4 62 Unknown [id number] 2.16.840.1.859052.3.579.2.4 62 Unknown [id number] 2.16.840.1.215362.3.579.2.4 62 Unknown [id number] 2.16.840.1.130649.3.579.2.4 62 Unknown [id number] 2.16.840.1.734827.3.579.2.4 62 Unknown [id number] 2.16.840.1.508028.3.579.2.4 62 Unknown [id number] 2.16.840.1.566481.3.579.2.4 62 Unknown [id number] 2.16.840.1.654962.3.579.2.4 62 Unknown [id number] 2.16.840.1.460360.3.579.2.4 62 Unknown [id number] 2.16.840.1.014058.3.579.2.4 62 Unknown [id number] 2.16.840.1.022348.3.579.2.4 62 Unknown [id number] 2.16.840.1.596356.3.579.2.4 62 Unknown [id number] 2.16.840.1.152268.3.579.2.4 62 Social History Date Type Detail Facility Start: 07-03-2020 End: 04-16-2023 Tobacco smoking status WAIS Unknown if ever smoked [facility] Sex Assigned At Not on file [place], [place] Exposure to SARS-CoV -2 (event) Not sure [place], [place] Start: 1940 Sex Assigned At Female W [facility] Start: 01-04-[address] [facility] Start: 01-04-[address] [facility] Start: 01-15-2018 Non-smoker [facility] Alcohol Use: Alcohol Use: ; N o Alcohol Use. [facility], [facility]. Marital status: Marital status: ; . [facility]; [facility] Tobacco use: Tobacco use: ; F ormer smoker. [facility]; [facility]; [facility] Work Phone: Occasional alcohol use [facility]; [facility] Work Phone: Never smoked tobacco [facility]; [facility] Work Phone: Start: 06-07-2024 Ex-smoker [facility] Medical Equipment Procedure Code Equipment Code Equipment Origin al Text Equipment Identifier Dates 11MM TFN CANNULA JOSE MARIA NAIL FDA Start: 12-30-2017 11MM TFN CANNULA JOSE MARIA NAIL FDA Start: 12-30-2017 11MM TFN CANNULA JOSE MARIA NAIL FDA Start: 12-30-2017 11MM TFN CANNULA JOSE MARIA NAIL FDA Start: 12-30-2017 11MM TFN CANNULA JOSE MARIA NAIL FDA Start: 12-30-2017 11MM TFN CANNULA JOSE MARIA NAIL FDA Start: 12-30-2017 11MM TFN CANNULA JOSE MARIA NAIL FDA Start: 12-30-2017 11MM TFN CANNULA JOSE MARIA NAIL FDA Start: 12-30-2017 11MM TFN CANNULA JOSE MARIA NAIL FDA Start: 12-30-2017 11MM TFN CANNULA JOSE MARIA NAIL FDA Start: 12-30-2017 Goals Date Patient Goal Desired Activity /State Functional Status Date Assessment Result Facility 04-23-2023 Functional status Bathroom [facility] Work Phone: 12-28-2021 Functional status Ambulates;Up ad gary [facility] Work Phone: 12-26-2021 Functional status Ambulates [facility] Work Phone: 12-13-2021 Functional status Patient Activity Chair [facility] Work Phone: 12-13-2021 Functional status With Assist of 1 [facility] Work Phone: Mental Status Date Assessment Result Facility 04-23-2023 Cognitive function Appropriate;Cooperativ e [facility] Work Phone: 04-22-2023 Cognitive function Arousable To Voice/Nam e [facility] Work Phone: 02-15-2022 Cognitive function Level Of Cons ciousness Awake;Alert;Appropriate;Follow s Commands [facility] Work Phone: 12-28-2021 Cognitive function Voice/Name [facility] Work Phone: 12-27-2021 Cognitive function Appropriate;C ooperative;Restle ss;Guarded [facility] Work Phone: 12-26-2021 Cognitive function Voice/Name [facility] Work Phone: 12-24-2021 Cognitive function Calm;Relaxed [facility] Work Phone: 12-13-2021 Cognitive function Patient Orientation Pe rson [facility] Work Phone: 12-13-2021 Cognitive function Voice/Name [facility] Work Phone: 12-12-2021 Cognitive function Fatigued [facility] Work Phone: Clinical Notes 02-15-2022 to 07-19-2024 Note Date & Type Note Facility 07-19-2024 Evaluation note Diagnosis Onset Date Resolution Anxiety chronic July 19, 2024 9:51am Dementia chronic July 19, 2024 9:51am Insomnia chronic July 19, 2024 9:51am Restless leg syndrome chronic Feb ruary 2024 9:51am Vitamin D deficiency chronic Febr uary 2024 9:51am Essential tremor inactive July 19, 2024 9:[address] chronic August 142024 11:20am Left bundle branch block acute October 05, 2024 9:00am Abnormal chest CT chronic September 142024 9:00am Dementia chronic October 05 9:00am Hyperlipemia chronic October 05, 2024 9:00am [facility] Work Phone: 1(825) 892-125112-31-2024 [facility] Medical Records Department [address] [place] [address] Discharge Summary 06/14/24 1355 MR#: [id number] Acct: [id number] Name: SAPNA BULLARD Rep #: [id number] : 1940 84 From: Pravin Cruz MD PCP: Dr. Nicci Lemus MD Status:ADM IN Location: [facility] [place] [facility] LD562-4 Providers Date of Admission: 06/07/24 Primary Care Physician: Dr. Nicci Lemus MD Consultations 06/09/24 10:20 Consult: Instructor Technical Training / Pulmonary Medicine Routine Consulting Provider: Intensivists/Pulmonary Med Reason for Consult: abnormal CT of chest EMERGENT Consult: No MD Notified: Yes Date Notified: 06/09/24 Time Notified: 10:21 Method of Notification: Verbal Reason For Visit: COVID Diagnosis Discharge Diagnosis (1) Generalized weakness: Status: Acute Code(s): R53.1 - Weakness (2) COVID-19: Status: Acute Code(s): U07.1 - COVID-19 Medications at Discharge Home Medications tramadol 50 mg tablet 50 mg PO Q8H PRN Pain 02/11/22 acetaminophen 325 mg tablet 650 mg (2 x 325 mg) PO Q4H PRN PRN Fever, pain 1- 03/24 #30 tabs 04/23/23 menthol 0.44 %-zinc oxide 20.6 % topical ointment (Calmoseptine) 1 applic topical 4X/DAY #0 grams 04/23/23 sennosides 8.6 mg-docusate sodium 50 mg tablet (Stool Softener-Stimulant Laxative) 2 tab PO BID PRN PRN Constipation #0 tabs 04/23/23 calcium 250 mg (as citrate)-vitamin D3 5 mcg (200 unit) tablet 1 tab PO TID Supplement #90 tabs 01/20/24 cholecalciferol (vitamin D3) 25 mcg (1,000 unit) tablet (Vitamin D3) 25 mcg PO DAILY #30 tabs 01/20/24 donepezil 10 mg tablet 10 mg PO QHS #30 tabs 01/20/24 memantine 10 mg tablet 10 mg PO BID #60 tabs 01/20/24 pramipexole 0.5 mg tablet 0.5 mg PO QHS #30 tabs 01/20/24 propranolol 20 mg tablet 20 mg PO .COMPLEX #120 tabs 02/23/24 levofloxacin 250 mg tablet 250 mg PO DAILY@0600 4 days #0 tabs 06/14/24 quetiapine 25 mg tablet 25 mg PO DAILY@1800 #0 tabs 06/14/24 Hospital Course Operations None Procedures None Summary of Care Provided Minutes Spent on Discharge: 33 Hospital Course: Per HPI: SAPNA BULLARD, is a 84 F with past medical history of mild dementia, actinic keratitis, essential tremor, low back pain, osteoporosis, prior left hip fracture, anxiety who presents to the ED for concerns regarding progressive fatigue, for the last 1 week with associated chills. The history is provided by her son [bedside], patient is hard of hearing and did not participate in most of the interview Since the last 7 to 10 days having ongoing symptoms of increased fatigability, tired and overall decreased vitality. For this concern she was brought to the ED a week back and was started on antibiotics for concerns of urinary tract infection. However despite the antibiotic therapy she has not responded, since the last 2 days he is also having fever with chills, decreased appetite and difficulty taking care of herself. She has cough, intermittent for the past few months. No shortness of breath/worsening respiratory status/PND/orthopnea. 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 She does not cook, does not drive, does not operate the stove, but is able to microwave food. Walks using a cane, has mild dementia, able to take care of basic transactions via self. Previously seen in the ED on 05/30/2024 for concerns regarding confusion, there was 1+ bacteria in the urine and was discharged on cephalexin 500 mg p.o. Today in the ED, WBC 6.4, hemoglobin 10.4, platelet count not reported, INR 0.9, APTT 21.3, sodium 138, potassium 4.1, creatinine 0.9, lactic acid 1.1, albumin 2.7, urine protein is negative, no urine WBCs Hospital Course: 1. Generalized weakness and debility secondary to COVID-19/dementia???84-year-old female presented to the hospital with increased debility and inability to complete ADLs. She does positive for COVID but was not hypoxic therefore was not treated with Decadron. She does have significant dementia which is led to so she has been started on Seroquel 25 mg to be given every day at 1800. I discussed with the son the plan for possible discharge today he expressed understanding there is benefits going to the residential and would like for her to have rehab. She does have multiple solid noncalcified cavitary lung lesions in pulmonology was consulted initially on her course who recommended Levaquin, she was transition to 250 mg secondary to renal function by pharmacy. Will plan for 4 more days on discharge. I recommend outpatient follow-up with pulmonology to monitor these lung lesions. Will continue with her medications for dementia. Physical Exam Narrative General: Alert, Oriented x1, No apparent distress HEENT: Atraumatic, PERRLA, EOMI, Normocephalic, hard of hearing Oral: Moist Mucosa Neck: Supple, No JVD Lungs: Diminished, Normal (more content not included)...[facility]11-08-2023 Progress note Author John Johnston [facility] April 22, 2023 4:40pm Note Date/Time April 22, 2023 4 :41pm [facility] Medical Records Department [address] [place] [address] Progress Note - Hospitalist 04/22/23 1637 MR#: [id number] Acct: [id number] Name: SAPNA BULLARD Drew Rep #:[id number] : 1940 83 From: John Johnston DO PCP: Dr. Nicci Lemus MD Status:ADM I N Location: [place] [address] Reason for Visit Reason for Visit: Diagnoses Acute cystitis without hematuria (04/16/23) Urinary tract infection, site not specified (04/16/23) Subjective Subjective Seen and examined today, she remains confused at baseline but is directable. I talked at length with her son by phone about her medical problems. The plan is for the patient to go to assisted living tomorrow. She is not safe at this timeto go home alone. Objective Data Objective Data Vital Signs: Vital Signs Temp Pulse Resp BP Pulse Ox O2 Del Method 98.6 F 70 18 118/73 95 Room Air 04/22/23 10:00 04/22/23 10:00 04/22/23 10:00 04/22/23 10:00 04/22/23 10:00 04/22/23 10:00 Oxygen Delivery Method Room Air Weight: 49.045 kg Body Mass Index (BMI) 18.0 Intake & Output: Intake and Output for Last 24 Hours 04/20/23 04/21/23 04/22/23 23:59 23:59 23:59 Intake Total 1909 300 / 300 450 / 450 Output Total 1899 800 / 800 Balance 1909 -1600 / -1600 -350 / -350 Medical Nutrition Assessment Dietitian: Malnutrition Criteria Met Start: 04/17/23 11:22 Freq: Status: Active Protocol: Document 04/17/23 11:22 SLA (Rec: 04/17/23 11:22 SLA Desktop) Nutrition Malnutrition Evidence of Malnutrition Exists Yes Malnutrition (severe): Chronic Evidenced By Suboptimal Energy Intake ( Severe),Weight Loss (Severe), Physical Changes (Moderate) Clinical Problem Chronic Disease or Condition Related Malnutrition Etiology related to dementia and inadequate energy intake Signs/Symptoms as evidenced by 15.5% unintended wt loss and po intake meeting <50% of est nutritional needs within past 14 months - has fat/muscle loss throughout body; BMI = 18 .0 Status Active Problem Recommendation Dietitian Recommendations/Changes Will change diet to Regular NONSELECT d/t dementia Will continue ensure plus high protein 4x/day w/ medpass Continue appetite stimulant Provide set up assist at meals Lab / Micro Data 04/20/23 06:50 04/20/23 06:50 Micro: Microbiology 04/16/23 18:27 Urine Catheter - Catheter Urine Culture - Final Presumptive E. coli 04/16/23 23:15 Mucosa - Nasopharyngeal Respiratory Panel (PCR) - Final 04/16/23 23:20 Urine, Clean Catch Legionella Antigen - Final 04/16/23 23:20 Urine, Clean Catch Streptococcus pneumoniae Antigen (M - Final 04/16/23 18:45 Nasal Secretion SARS-CoV-2 & FLU Antigen (Rapid) - Final Physical Exam Narrative alert and no apparent distress General Appearance: cooperative, well kempt and well developed Orientation / Consciousness: awake and confused HEENT normocephalic, head/scalp atraumatic and moist oral mucous membranes Eyes PERRL, EOMs intact bilaterally and conjunctivae normal Neck supple, no JVD, thyroid normal and no carotid bruits General: trachea midline Resp normal respiratory effort, no retractions, no use of accessory muscles and clearto auscultation bilaterally Auscultation: Negative for rales, rhonchi or wheezes Cardio regular rate, regular rhythm, no murmurs, no rub and no gallops GI normal to inspection, nondistended, normoactive bowel sounds, soft to palpation,non-tender and non-distended Extremity no clubbing, cyanosis or edema Skin no rashes or lesions noted General Skin Exam: no breakdown Neuro CN's II-XII intact bilaterally, no focal motor deficits and no sensory deficits noted Neuro Narrative: Patient is hard of hearing, she appears mildly confused Sensorium / Orientation: awake and alert Speech: speech normal Psych Psych Narrative: Patient appears mildly confused Assessment & Plan Assessment/Plan (1) UTI (urinary tract infection): QUALIFIERS: Urinary tract infection type: acute cystitis Hematuria presence: without hematuria Qualified Code(s): N30.00 - Acute cystitis without hematuria PLAN: Plan 1. Left lower lobe pneumonia-patient is currently on Keflex #2 encephalopathy on a backdrop of dementia-supportive care will be offered, patient will go to an assisted living facility at the time of discharge #3 acute cystitis-patient is on Keflex #4 acute debility secondary to multiple medical problems including dementia, pneumonia, and cystitis-PT and OT are seeing patient, she will be going to an assisted living facility #5 essential tremor-patient is on propranolol #6 severe protein and caloric malnutrition-related to dementia and inadequate energy intake as evidenced by 15.5% unintended weight loss and p.o. intake meeting less than 50% estimated nutritional needs within the past 14 months, patient has fat/muscle loss throughout the body-patient is on a regular diet, she will continue Ensure Plus high-protein 4 times a day with med Pass, she willcontinue on an appetite stimulant #7 chronic dementia-type unknown, probable Alzheimer's dementia-complicates care, medical course, recovery, and prognosis Total clinical time spent by myself addressing patient's medical issues, reviewing all of her data, and collaborating with patient's care team: 35 minutes Charges/Coding Visit Charges Inpatient E&M: 55046 Subs Hosp L2 04/22/23 1640 <Electronically signed by John Johnston DO> Cosigner Signature (if applicable): CC: ~ Signed [facility] Work Phone: 1(520) 928-996311-07-2023 Progress note Author John Johnston [facility] April 21, 2023 5:05pm Note Date/Time April 21, 2023 4 :52pm [facility] Medical Records Department [address] [place] [address] Progress Note - Hospitalist 04/21/23 1649 MR#: [id number] Acct: [id number] Name: SAPNA BULLARD Rep #:[id number] : 1940 83 From: John Johnston DO PCP: Dr. Nicci Lemus MD Status:ADM I N Location: [place] [address] Reason for Visit Reason for Visit: Diagnoses Acute cystitis without hematuria (04/16/23) Urinary tract infection, site not specified (04/16/23) Subjective Subjective Patient was seen and examined today, she still exhibited some confusion. Patient has no complaints of any shortness of breath, fever, or chills. Objective Data Objective Data Vital Signs: Vital Signs Temp Pulse Resp BP Pulse Ox O2 Del Method 97.9 F 56 L 18 119/58 L 97 Room Air 04/21/23 14:12 04/21/23 14:12 04/21/23 14:12 04/21/23 14:12 04/21/23 14:12 04/21/23 14:12 Oxygen Delivery Method Room Air Weight: 48.7 kg Body Mass Index (BMI) 17.9 Intake & Output: Intake and Output for Last 24 Hours 04/19/23 04/20/23 04/21/23 23:59 23:59 23:59 Intake Total 1909 300 / 300 Output Total 1400 / 1400 Balance 1909 -1100 / -1100 Medical Nutrition Assessment Dietitian: Malnutrition Criteria Met Start: 04/17/23 11:22 Freq: Status: Active Protocol: Document 04/17/23 11:22 SLA (Rec: 04/17/23 11:22 SLA Desktop) Nutrition Malnutrition Evidence of Malnutrition Exists Yes Malnutrition (severe): Chronic Evidenced By Suboptimal Energy Intake ( Severe),Weight Loss (Severe), Physical Changes (Moderate) Clinical Problem Chronic Disease or Condition Related Malnutrition Etiology related to dementia and inadequate energy intake Signs/Symptoms as evidenced by 15.5% unintended wt loss and po intake meeting <50% of est nutritional needs within past 14 months - has fat/muscle loss throughout body; BMI = 18 .0 Status Active Problem Recommendation Dietitian Recommendations/Changes Will change diet to Regular NONSELECT d/t dementia Will continue ensure plus high protein 4x/day w/ medpass Continue appetite stimulant Provide set up assist at meals Lab / Micro Data 04/20/23 06:50 04/20/23 06:50 Micro: Microbiology 04/16/23 18:27 Urine Catheter - Catheter Urine Culture - Final Presumptive E. coli 04/16/23 23:15 Mucosa - Nasopharyngeal Respiratory Panel (PCR) - Final 04/16/23 23:20 Urine, Clean Catch Legionella Antigen - Final 04/16/23 23:20 Urine, Clean Catch Streptococcus pneumoniae Antigen (M - Final 04/16/23 18:45 Nasal Secretion SARS-CoV-2 & FLU Antigen (Rapid) - Final Physical Exam Narrative alert and no apparent distress General Appearance: cooperative, well kempt and well developed Orientation / Consciousness: awake and confused HEENT normocephalic, head/scalp atraumatic and moist oral mucous membranes Eyes PERRL, EOMs intact bilaterally and conjunctivae normal Neck supple, no JVD, thyroid normal and no carotid bruits General: trachea midline Resp normal respiratory effort, no retractions, no use of accessory muscles and clearto auscultation bilaterally Auscultation: Negative for rales, rhonchi or wheezes Cardio regular rate, regular rhythm, no murmurs, no rub and no gallops GI normal to inspection, nondistended, normoactive bowel sounds, soft to palpation,non-tender and non-distended Extremity no clubbing, cyanosis or edema Skin no rashes or lesions noted General Skin Exam: no breakdown Neuro CN's II-XII intact bilaterally, no focal motor deficits and no sensory deficits noted Neuro Narrative: Patient is hard of hearing, she appears mildly confused Sensorium / Orientation: awake and alert Speech: speech normal Psych Psych Narrative: Patient appears mildly confused Assessment & Plan Assessment/Plan (1) UTI (urinary tract infection): QUALIFIERS: Urinary tract infection type: acute cystitis Hematuria presence: without hematuria Qualified Code(s): N30.00 - Acute cystitis without hematuria PLAN: Plan 1. Left lower lobe pneumonia-patient is currently on ceftriaxone and Zithromax,I have elected to change her antibiotic coverage to Keflex #2 encephalopathy on a backdrop of dementia-supportive care will be offered, patient will need placement in a snf facility for short-term rehab services #3 acute cystitis-again patient will be transition to Keflex starting tomorrow #4 acute debility secondary to multiple medical problems including dementia, pneumonia, and cystitis-PT and OT are seeing patient, she will need short-term placement in a snf facility #5 essential tremor-patient is on propranolol #6 severe protein and caloric malnutrition-related to dementia and inadequate energy intake as evidenced by 15.5% unintended weight loss and p.o. intake meeting less than 50% estimated nutritional needs within the past 14 months, patient has fat/muscle loss throughout the body-patient is on a regular diet, she will continue Ensure Plus high-protein 4 times a day with med [facility]), she willcontinue on an appetite stimulant #7 chronic dementia-type unknown, probable Alzheimer's dementia-complicates care, medical course, recovery, and prognosis Total clinical time spent by myself addressing patient's medical issues, reviewing all of her data, and collaborating with patient's care team: 35 minutes Charges/Coding Visit Charges Inpatient E&M: 89720 Subs Hosp L2 04/21/23 1705 <Electronically signed by John Johnston DO> Cosigner Signature (if applicable): CC: ~ Signed [facility] Work Phone: 1(870) 600-582011-06-2023 Progress note Author John Johnston [facility] April 20, 2023 7:08pm Note Date/Time April 20, 2023 7 :08pm [facility] Medical Records Department [facility] [place] [address] Progress Note - Hospitalist 04/20/23 8943 MR#: [id number] Acct: [id number] Name: SAPNA BULLARD Drew Rep #:[id number] : 1940 83 From: John Johnston DO PCP: Dr. Ncici Lemus MD Status:ADM I N Location: [facility] HC709-7 Reason for Visit Reason for Visit: Diagnoses Acute cystitis without hematuria (04/16/23) Urinary tract infection, site not specified (04/16/23) Subjective Subjective Patient was seen and examined today, nursing states that she has been confused at times. Patient's son requested the patient go to an extended care facility for short-term rehab services, patient does not feel that she is safe to return home at this time, patient will need pre-CERT before she goes to an extended care facility. Patient denies any fevers or chills today. She is very hard of hearing which makes communication difficult. Patient is not currently on any oxygen. Objective Data Objective Data Vital Signs: Vital Signs Temp Pulse Resp BP Pulse Ox O2 Del Method 98.7 F 64 18 100/50 L 95 Room Air 04/20/23 13:55 04/20/23 13:55 04/20/23 13:55 04/20/23 13:55 04/20/23 13:55 04/20/23 13:55 Oxygen Delivery Method Room Air Weight: 49.1 kg Body Mass Index (BMI) 18.0 Intake & Output: Intake and Output for Last 24 Hours 04/19/23 04/19/23 04/20/23 00:59 23:59 23:59 Intake Total 1505 / 1505 Output Total Balance 1505 / 1505 Medical Nutrition Assessment Dietitian: Malnutrition Criteria Met Start: 04/17/23 11:22 Freq: Status: Active Protocol: Document 04/17/23 11:22 NITZA (Rec: 04/17/23 11:22 NITZA Desktop) Nutrition Malnutrition Evidence of Malnutrition Exists Yes Malnutrition (severe): Chronic Evidenced By Suboptimal Energy Intake ( Severe),Weight Loss (Severe), Physical Changes (Moderate) Clinical Problem Chronic Disease or Condition Related Malnutrition Etiology related to dementia and inadequate energy intake Signs/Symptoms as evidenced by 15.5% unintended wt loss and po intake meeting <50% of est nutritional needs within past 14 months - has fat/muscle loss throughout body; BMI = 18 .0 Status Active Problem Recommendation Dietitian Recommendations/Changes Will change diet to Regular NONSELECT d/t dementia Will continue ensure plus high protein 4x/day w/ medpass Continue appetite stimulant Provide set up assist at meals Lab / Micro Data 04/20/23 06:50 11/06/23 06:50 Labs: Laboratory Results - last 24 hr 04/20/23 06:50: WBC 8.0, RBC 3.61 L, Hgb 10.0 L, Hct 31.2 L, MCV 86.4, MCH 27.7,MCHC 32.1, RDW Std Deviation 42.5, RDW Coeff of Tiffanie 13.4, Plt Count 291, MPV 9.1, Immature Gran % (Auto) 0.400, Neut % (Auto) 65.0, Lymph % (Auto) 17.3 L, [place] % (Auto) 16.0 H, Eos % (Auto) 1.0, Baso % (Auto) 0.3, Absolute Neuts (auto)5.2, Absolute Lymphs (auto) 1.38, Nucleated RBC % 0, Sodium 135 L, Potassium 3.2L, Chloride 103, Carbon Dioxide 25.0, Anion Gap 7, BUN 16, Creatinine 0.82, Estim Creat Clear Calc 41.00, Est GFR (MDRD) Af Amer 86, Est GFR (MDRD) Non-Af 71, BUN/Creatinine Ratio 19.6, Glucose 92, Calcium 8.2 L Micro: Microbiology 04/16/23 18:27 Urine Catheter - Catheter Urine Culture - Final Presumptive E. coli 04/16/23 23:15 Mucosa - Nasopharyngeal Respiratory Panel (PCR) - Final 04/16/23 23:20 Urine, Clean Catch Legionella Antigen - Final 04/16/23 23:20 Urine, Clean Catch Streptococcus pneumoniae Antigen (M - Final 04/16/23 18:45 Nasal Secretion SARS-CoV-2 & FLU Antigen (Rapid) - Final Physical Exam Const alert and no apparent distress General Appearance: cooperative, well kempt and well developed Orientation / Consciousness: awake and confused HEENT normocephalic, head/scalp atraumatic and moist oral mucous membranes Eyes PERRL, EOMs intact bilaterally and conjunctivae normal Neck supple, no JVD, thyroid normal and no carotid bruits General: trachea midline Resp normal respiratory effort, no retractions, no use of accessory muscles and clearto auscultation bilaterally Auscultation: Negative for rales, rhonchi or wheezes Cardio regular rate, regular rhythm, no murmurs, no rub and no gallops GI normal to inspection, nondistended, normoactive bowel sounds, soft to palpation,non-tender and non-distended Extremity no clubbing, cyanosis or edema Skin no rashes or lesions noted General Skin Exam: no breakdown Neuro CN's II-XII intact bilaterally, no focal motor deficits and no sensory deficits noted Neuro Narrative: Patient is hard of hearing, she appears mildly confused Sensorium / Orientation: awake and alert Speech: speech normal Psych Psych Narrative: Patient appears mildly confused Assessment & Plan Assessment/Plan (1) UTI (urinary tract infection): QUALIFIERS: Urinary tract infection type: acute cystitis Hematuria presence: without hematuria Qualified Code(s): N30.00 - Acute cystitis without hematuria PLAN: Plan 1. Left lower lobe pneumonia-patient is currently on ceftriaxone and Zithromax,I have elected to change her antibiotic coverage starting tomorrow to Keflex. #2 encephalopathy on a backdrop of dementia-supportive care will be offered, patient will need placement in a snf facility for short-term rehab services #3 acute cystitis-again patient will be transition to Keflex starting tomorrow #4 acute debility secondary to multiple medical problems including dementia, pneumonia, and cystitis-PT and OT are seeing patient, she will need short-term placement in a snf facility #5 essential tremor-patient is on propranolol Total clinical time spent by myself addressing patient's medical issues, reviewing all of her data, and collaborating with patient's care team: 35 minutes Charges/Coding Visit Charges Inpatient E&M: 84550 Subs Hosp L2 04/20/23 1908 <Electronically signed by John Johnston DO> Cosigner Signature (if applicable): CC: ~ Signed [facility] Work Phone: 1(175) 205-523911-05-2023 Progress note Author Pravin Cruz [facility] April 19, 2023 8:59am Note Date/Time April 19, 2023 8 :59am [facility] Medical Records Department [facility] [place] [address] Progress Note - Hospitalist 04/19/23 0857 MR#: [id number] Acct: [id number] Name: SAPNA BULLARD Rep #:[id number] : 1940 83 From: Pravin ty MD PCP: Dr. Nicci Lemus MD Status:ADM I N Location: [facility] IS661-2 Subjective Subjective No issues overnight, she is hard of hearing. Son is concerned about repeated episodes of UTIs and delirium. Discussed that in her age group UTIs to some degree are inevitable but she is also here for new onset pneumonia Objective Data Objective Data Vital Signs: Vital Signs Temp Pulse Resp BP Pulse Ox O2 Del Method 98 F 79 18 117/72 95 Room Air 04/19/23 07:36 04/19/23 07:36 04/19/23 07:36 04/19/23 07:36 04/19/23 07:36 04/19/23 07:36 Oxygen Delivery Method Room Air Weight: 108 lb 3.951 oz Body Mass Index (BMI) 18.0 Intake & Output: Intake and Output for Last 24 Hours 04/18/23 04/19/23 04/20/23 04:59 03:59 03:59 Intake Total Output Total Balance Medical Nutrition Assessment Dietitian: Malnutrition Criteria Met Start: 04/17/23 11:22 Freq: Status: Active Protocol: Document 04/17/23 11:22 SLA (Rec: 04/17/23 11:22 SLA Desktop) Nutrition Malnutrition Evidence of Malnutrition Exists Yes Malnutrition (severe): Chronic Evidenced By Suboptimal Energy Intake ( Severe),Weight Loss (Severe), Physical Changes (Moderate) Clinical Problem Chronic Disease or Condition Related Malnutrition Etiology related to dementia and inadequate energy intake Signs/Symptoms as evidenced by 15.5% unintended wt loss and po intake meeting <50% of est nutritional needs within past 14 months - has fat/muscle loss throughout body; BMI = 18 .0 Status Active Problem Recommendation Dietitian Recommendations/Changes Will change diet to Regular NONSELECT d/t dementia Will continue ensure plus high protein 4x/day w/ medpass Continue appetite stimulant Provide set up assist at meals Lab / Micro Data 04/17/23 06:30 04/17/23 06:30 Micro: Microbiology 04/16/23 18:27 Urine Catheter - Catheter Urine Culture - Final Presumptive E. coli 04/16/23 23:15 Mucosa - Nasopharyngeal Respiratory Panel (PCR) - Final 04/16/23 23:20 Urine, Clean Catch Legionella Antigen - Final 04/16/23 23:20 Urine, Clean Catch Streptococcus pneumoniae Antigen (M - Final 04/16/23 18:45 Nasal Secretion SARS-CoV-2 & FLU Antigen (Rapid) - Final Physical Exam Narrative General: Alert, Oriented x3, Cooperative, No apparent distress HEENT: Atraumatic, PERRLA, EOMI, Normocephalic, hard of hearing Oral: Moist Mucosa Neck: Supple, No JVD Lungs: Diminished, Normal air movement, rhonchi, No wheeze, No rales Cardiovascular: Regular rate, Regular Rhythm, Normal S1, Normal S2, No murmurs Abdomen: Soft, Non Tender, Non-Distended, No Hepato-splenomegaly Extremities: No edema, Capillary Refill Less than 3 Seconds Skin: No rashes, No breakdown Musculoskeletal: No Tenderness to Palpation of Joints or Extremities Neurological: Moves all extremities, Sensory exam intact to light touch and pain Psych/Mental Status: Normal Affect, Appropriate Assessment & Plan Assessment/Plan (1) UTI (urinary tract infection): QUALIFIERS: Urinary tract infection type: acute cystitis Hematuria presence: without hematuria Qualified Code(s): N30.00 - Acute cystitis without hematuria PLAN: Plan #1. Adult FTT and Acute Encephalopathy, multifactorial, secondary to Left lowerlobe pneumonia, community-acquired and UTI: We will admit to medical surgical floor, supplemental oxygen as needed however currently appropriate on room air, PRN albuterol, maintained on IV Rocephin and azithromycin, HOB, IS parameters. Respiratory panel active. Urinary antigens are negative. Flu and SARS-CoV-2 antigens are negative. Continue IV ceftriaxone and Zithromax. 04/18: Patient is still having low-grade fever and cough.Pulse ox 97% on room air. No fever in next 24 hours, anticipate discharge. 04/19/2023: Son is concerned about plan for discharge today he would like to continue with antibiotics, she is also currently in a wheelchair and lives home alone so may benefit from repeat SNF #2. Acute Urinary Tract Infection/cystitis, failed outpatient antibiotic although unclear what antibiotic: Urine culture shows presumptive E. coli. Continue IV antibiotic. 04/18: Urine culture Bartholomew reported. E. coli [id number] E. coli, ramon sensitivity sensitivity available. Continue IV ceftriaxone. #3. Hypokalemia: Admission K+ 3.3, potassium is getting replaced. Repeat potassium 3.8. Serum magnesium normal. #4. Dementia, unclear type with unclear behavioral disturbance history: Complicates presentation, continue patient home donepezil as well as memantine home regimen, maintain on fall and aspiration precautions, PT/OT/case managementconsulted for discharge planning. #5. Anxiety and depression: continue patient home mirtazapine regimen. #6. Essential tremor: continue patient home propranolol low-dose regimen. #7. Restless leg syndrome: continue patient home pramipexole regimen. #8. Chronic normocytic anemia/iron deficiency anemia: Admission hemoglobin 11.7, MCV 88, baseline hemoglobin primarily 10-11, stable, continue to trend, currently noted history also of iron deficiency anemia not on any chronic regimen, encourage continued outpatient assessments. #9. GERD: Per list not on chronic regimen, will have as needed Mylanta. DVT: Lovenox Charges/Coding Visit Charges Inpatient E&M: 59570 Subs Hosp L2 04/19/23 0859 <Electronically signed by Pravin Cruz MD> Cosigner Signature (if applicable): CC: ~ Signed [facility] Work Phone: 1(325) 584-367311-04-2023 Progress note Author Darinel Carlos [facility] April 18, 2023 2:11pm Note Date/Time April 18, 2023 1 0:00am [facility] Medical Records Department [address] [place] [address] Progress Note - Hospitalist 04/18/23 0959 MR#: [id number] Acct: [id number] Name: SAPNA BULLARD Rep #:[id number] : 1940 83 From: Darinel Morocho PCP: Dr. Nicci Lemus MD Status:ADM I N Location: [facility] [place] WW916-3 Reason for Visit Reason for Visit: Diagnoses Urinary tract infection, site not specified (04/16/23) Objective Data Objective Data Vital Signs: Vital Signs Temp Pulse Resp BP Pulse Ox O2 Del Method 99.1 F 63 18 143/97 H 97 Room Air 04/18/23 02:29 04/18/23 02:29 04/18/23 02:29 04/18/23 02:29 04/18/23 02:29 04/18/23 02:47 Oxygen Delivery Method Room Air Weight: 108 lb 3.951 oz Body Mass Index (BMI) 18.0 Intake & Output: Intake and Output for Last 24 Hours 04/16/23 04/17/23 04/18/23 23:59 23:59 23:59 Intake Total 1305 / 1305 500 / 500 455 / 455 Output Total 400 / 400 Balance 1305 / 905 100 / 100 455 / 455 Medical Nutrition Assessment Dietitian: Malnutrition Criteria Met Start: 04/17/23 11:22 Freq: Status: Active Protocol: Document 04/17/23 11:22 NITZA (Rec: 04/17/23 11:22 SLA Desktop) Nutrition Malnutrition Evidence of Malnutrition Exists Yes Malnutrition (severe): Chronic Evidenced By Suboptimal Energy Intake ( Severe),Weight Loss (Severe), Physical Changes (Moderate) Clinical Problem Chronic Disease or Condition Related Malnutrition Etiology related to dementia and inadequate energy intake Signs/Symptoms as evidenced by 15.5% unintended wt loss and po intake meeting <50% of est nutritional needs within past 14 months - has fat/muscle loss throughout body; BMI = 18 .0 Status Active Problem Recommendation Dietitian Recommendations/Changes Will change diet to Regular NONSELECT d/t dementia Will continue ensure plus high protein 4x/day w/ medpass Continue appetite stimulant Provide set up assist at meals Lab / Micro Data 04/17/23 06:30 04/17/23 06:30 Micro: Microbiology 04/16/23 18:27 Urine Catheter - Catheter Urine Culture - Final Presumptive E. coli 04/16/23 23:15 Mucosa - Nasopharyngeal Respiratory Panel (PCR) - Final 04/16/23 23:20 Urine, Clean Catch Legionella Antigen - Final 04/16/23 23:20 Urine, Clean Catch Streptococcus pneumoniae Antigen (M - Final 04/16/23 18:45 Nasal Secretion SARS-CoV-2 & FLU Antigen (Rapid) - Final Physical Exam Narrative Seen and examined. Patient had a low-grade fever Tmax 100.2 Fahrenheit. She states he has cough but could not say whether she is having sputum production or not. Patient is very hard of hearing and reads lips uses hearing aid. Mild shortness of breath. No hypoxia. Physical exam General: Alert, Oriented x3, Cooperative HEENT: Atraumatic, PERRLA, EOMI, Normocephalic Oral: Oral mucosa moist no Gingival or Mucosal Lesions/ Ulcerations Neck: Supple, No JVD, Negative Carotid Bruits Lungs: Air entry diminished in bilateral lung bases. Mild expiratory rhonchi and crepitations Cardiovascular: Regular rate, Regular Rhythm, Normal S1, Normal S2, systolic murmur LLSB Abdomen: Bowel Sounds Present, Soft, Non Tender, Non-Distended : No renal angle tenderness. No suprapubic tenderness. Extremities: No edema, Capillary Refill Less than 3 Seconds Skin: No rashes, No breakdown Musculoskeletal: No Tenderness to Palpation of Joints or Extremities Neurological: Cranial nerves II-XII grossly intact, DTR 2+/4. No acute focal neurological deficit. Psych/Mental Status: Flat affect. Assessment & Plan Assessment/Plan (1) UTI (urinary tract infection): QUALIFIERS: Urinary tract infection type: acute cystitis Hematuria presence: without hematuria Qualified Code(s): N30.00 - Acute cystitis without hematuria PLAN: Plan The patient is an 83 y/o F [facility] ED on 04/16/23 with history of altered mentation brought in by the family with recent history of UTI the week prior treated with antibiotic unclear was admitted with increased confusion, generalized weakness malaise and ongoing dysuria/burning micturition. Chest x-ray initially reviewed and shows left lower lobe infiltrates, new since last chest x-ray on on 12/10/2021. #1. Adult FTT and Acute Encephalopathy, multifactorial, secondary to Left lowerlobe pneumonia, community-acquired and UTI: We will admit to medical surgical floor, supplemental oxygen as needed however currently appropriate on room air, PRN albuterol, maintained on IV Rocephin and azithromycin, HOB, IS parameters. Respiratory panel active. Urinary antigens are negative. Flu and SARS-CoV-2 antigens are negative. Continue IV ceftriaxone and Zithromax. 04/18: Patient is still having low-grade fever and cough.Pulse ox 97% on room air. No fever in next 24 hours, anticipate discharge. #2. Acute Urinary Tract Infection/cystitis, failed outpatient antibiotic although unclear what antibiotic: Urine culture shows presumptive E. coli. Continue IV antibiotic. 04/18: Urine culture Bartholomew reported. E. coli [id number] E. coli, ramon sensitivity sensitivity available. Continue IV ceftriaxone. #3. Hypokalemia: Admission K+ 3.3, potassium is getting replaced. Repeat potassium 3.8. Serum magnesium normal. #4. Dementia, unclear type with unclear behavioral disturbance history: Complicates presentation, continue patient home donepezil as well as memantine home regimen, maintain on fall and aspiration precautions, PT/OT/case managementconsulted for discharge planning. #5. Anxiety and depression: continue patient home mirtazapine regimen. #6. Essential tremor: continue patient home propranolol low-dose regimen. #7. Restless leg syndrome: continue patient home pramipexole regimen. #8. Chronic normocytic anemia/iron deficiency anemia: Admission hemoglobin 11.7, MCV 88, baseline hemoglobin primarily 10-11, stable, continue to trend, currently noted history also of iron deficiency anemia not on any chronic regimen, encourage continued outpatient assessments. #9. GERD: Per list not on chronic regimen, will have as needed Mylanta. #10. DVT prophylaxis: Lovenox. #11. CODE status: Patient CIRO is her son who is present and living will is currently in place. Discussed CODE status at length including difference betweenFULL code, DNR-CCA and DNR-CC status. Following discussions about the differences in these status, requested DNR-CCA, no intubation status. Advanced Care Planning Charges/Coding Visit Charges Inpatient E&M: 25284 Subs Hosp L2 04/18/23 1411 <Electronically signed by Darinel Carlos MD> Cosigner Signature (if applicable): CC: ~ Signed [facility] Work Phone: 1(545) 277-936711-03-2023 Progress note Author Darinel Carlos [facility] April 17, 2023 3:54pm Note Date/Time April 17, 2023 7 :31am [facility] Medical Records Department [address] [place] [address] Progress Note - Hospitalist 04/17/23 0728 MR#: [id number] Acct: [id number] Name: SAPNA BULLARD Rep #:[id number] : 1940 83 From: Darinel Morocho PCP: Dr. Nicci Lemus MD Status:ADM I N Location: [place] [address] Reason for Visit Reason for Visit: Diagnoses Urinary tract infection, site not specified (04/16/23) Objective Data Objective Data Vital Signs: Vital Signs Temp Pulse Resp BP Pulse Ox O2 Del Method 99.3 F H 58 L 20 H 97/66 97 Room Air 04/17/23 03:31 04/17/23 03:31 04/17/23 03:31 04/17/23 03:31 04/17/23 03:31 04/17/23 03:36 Oxygen Delivery Method Room Air Weight: 106 lb 1.383 oz Body Mass Index (BMI) 17.6 Intake & Output: Intake and Output for Last 24 Hours 04/15/23 04/16/23 04/17/23 23:59 23:59 23:59 Intake Total 1305 / 1305 Output Total 400 / 400 Balance 1305 / 905 -400 / -400 Lab / Micro Data 04/17/23 06:30 04/17/23 06:30 Labs: Laboratory Results - last 24 hr 04/16/23 18:04: WBC 9.7, RBC 4.34, Hgb 11.7 L, Hct 38.2, MCV 88.0, MCH 27.0, MCHC 30.6 L, RDW Std Deviation 42.4, RDW Coeff of Tiffanie 13.2, Plt Count 396, MPV 8.6, Immature Gran % (Auto) 0.400, Neut % (Auto) 80.3 H, Lymph % (Auto) 10.8 L, [place] % (Auto) 8.0, Eos % (Auto) 0.1, Baso % (Auto) 0.4, Absolute Neuts (auto) 7.8 H, Absolute Lymphs (auto) 1.05, Nucleated RBC % 0, Sodium 135 L, Potassium 3.3 L, Chloride 101, Carbon Dioxide 29.0, Anion Gap 5, BUN 14, Creatinine 0.95, Estim Creat Clear Calc 34.69, Est GFR (MDRD) Af Amer 72, Est GFR (MDRD) Non-Af 60, BUN/Creatinine Ratio 14.7, Glucose 100, Calcium 8.7, Magnesium 2.0, Total Bilirubin 0.50, AST 18, ALT 17, Alkaline Phosphatase 117, Troponin I High Sens 14, Total Protein 7.0, Albumin 3.1 L, Globulin 3.9, Albumin/Globulin Ratio 0.8 L 04/16/23 18:27: Urine Color Yellow, Urine Clarity Sl. Cloudy, Urine pH 7.0, Ur Specific [place] 1.010, Urine Protein 15 H, Urine Glucose (UA) Normal, Urine Ketones Negative, Urine Occult Blood 25 H, Urine Nitrite Negative, Urine Bilirubin Negative, Urine Urobilinogen Normal, Ur Leukocyte Esterase 500 H, Urine RBC 0-5 SEEN, Urine WBC 10-25 SEEN, Ur Squamous Epith Cells 0 SEEN, Urine Bacteria 1+, Urine Mucus 0 SEEN 04/17/23 06:30: WBC 6.9, RBC 3.62 L, Hgb 9.9 L, Hct 32.4 L, MCV 89.5, MCH 27.3, MCHC 30.6 L, RDW Std Deviation 43.8, RDW Coeff of Tiffanie 13.3, Plt Count 302, MPV 9.0, Immature Gran % (Auto) 0.300, Neut % (Auto) 73.6 H, Lymph % (Auto) 13.6 L, [place] % (Auto) 11.3 H, Eos % (Auto) 0.6, Baso % (Auto) 0.6, Absolute Neuts (auto)5.1, Absolute Lymphs (auto) 0.94, Nucleated RBC % 0 Micro: Microbiology 04/16/23 23:15 Mucosa - Nasopharyngeal Respiratory Panel (PCR) - Final 04/16/23 23:20 Urine, Clean Catch Legionella Antigen - Final 04/16/23 23:20 Urine, Clean Catch Streptococcus pneumoniae Antigen (M - Final 04/16/23 18:45 Nasal Secretion SARS-CoV-2 & FLU Antigen (Rapid) - Final Radiography Diagnostic Testing: Radiology Impression Chest X-Ray 04/16/23 18:10 IMPRESSION: Left lower lobe pneumonia. Electronically Signed: Bernardo Vargas MD at 18:46 EDT , Physical Exam Narrative Seen and examined. Patient is very hard of hearing and reads lips uses hearing aid. Mild shortnessof breath. No hypoxia. Physical exam General: Alert, Oriented x3, Cooperative HEENT: Atraumatic, PERRLA, EOMI, Normocephalic Oral: Oral mucosa moist no Gingival or Mucosal Lesions/ Ulcerations Neck: Supple, No JVD, Negative Carotid Bruits Lungs: Air entry diminished in bilateral lung bases. Mild expiratory rhonchi and crepitations Cardiovascular: Regular rate, Regular Rhythm, Normal S1, Normal S2, systolic murmur LLSB Abdomen: Bowel Sounds Present, Soft, Non Tender, Non-Distended : No renal angle tenderness. No suprapubic tenderness. Extremities: No edema, Capillary Refill Less than 3 Seconds Skin: No rashes, No breakdown Musculoskeletal: No Tenderness to Palpation of Joints or Extremities Neurological: Cranial nerves II-XII grossly intact, DTR 2+/4. No acute focal neurological deficit. Psych/Mental Status: Flat affect. Assessment & Plan Assessment/Plan (1) UTI (urinary tract infection): QUALIFIERS: Urinary tract infection type: acute cystitis PLAN: Plan The patient is an 83 y/o F [facility] ED on 04/16/23 with history of altered mentation brought in by the family with recent history of UTI the week prior treated with antibiotic unclear was admitted with increased confusion, generalized weakness malaise and ongoing dysuria/burning micturition. Chest x-ray initially reviewed and shows left lower lobe infiltrates, new since last chest x-ray on on 12/10/2021. #1. Adult FTT and Acute Encephalopathy, multifactorial, secondary to Left lowerlobe pneumonia, community-acquired and UTI: We will admit to medical surgical floor, supplemental oxygen as needed however currently appropriate on room air, PRN albuterol, maintained on IV Rocephin and azithromycin, HOB, IS parameters. Respiratory panel active. Urinary antigens are negative. Flu and SARS-CoV-2 antigens are negative. Continue IV ceftriaxone and Zithromax. #2. Acute Urinary Tract Infection/cystitis, failed outpatient antibiotic although unclear what antibiotic: Urine culture shows presumptive E. coli. Continue IV antibiotic. #3. Hypokalemia: Admission K+ 3.3, potassium is getting replaced. Repeat potassium 3.8. Serum magnesium normal. #4. Dementia, unclear type with unclear behavioral disturbance history: Complicates presentation, continue patient home donepezil as well as memantine home regimen, maintain on fall and aspiration precautions, PT/OT/case managementconsulted for discharge planning. #5. Anxiety and depression: We will continue patient home mirtazapine regimen. #6. Essential tremor: We will continue patient home propranolol low-dose regimen. #7. Restless leg syndrome: We will continue patient home pramipexole regimen. #8. Chronic normocytic anemia/iron deficiency anemia: Admission hemoglobin 11.7, MCV 88, baseline hemoglobin primarily 10-11, stable, continue to trend, currently noted history also of iron deficiency anemia not on any chronic regimen, encourage continued outpatient assessments. #9. GERD: Per list not on chronic regimen, will have as needed Mylanta. #10. DVT prophylaxis: Lovenox. #11. CODE status: Patient CIRO is her son who is present and living will is currently in place. Discussed CODE status at length including difference betweenFULL code, DNR-CCA and DNR-CC status. Following discussions about the differences in these status, requested DNR-CCA, no intubation status. Advanced Care Planning Active Medications Acetaminophen (Acetaminophen 325 Mg Tablet) 650 mg PO Q4H PRN PRN PRN Reason: Fever, pain 1-03/24 Last Admin: 04/17/23 08:33 Dose: 650 mg Al Hydroxide/Mg Hydroxide (Mag Hydrox/Al Hydrox/Simeth 30 Ml Udc) 30 ml PO Q6H PRN PRN PRN Reason: Gastric Burning Albuterol Sulfate (Albuterol 2.5 Mg/3 Ml Vial.Neb.) 2.5 mg INHALATION Q2H PRN PRN PRN Reason: Dyspnea, wheezing Calamine/Phenol (Menthol/Lanolin/Calamine/Znox 113 Gm Tube) 1 applic TOPICAL 4X/DAY SAUD; Protocol Last Admin: 04/17/23 13:58 Dose: 1 applic Donepezil HCl (Donepezil Hcl 10 Mg Tablet) 10 mg PO QHS SAUD Last Admin: 04/16/23 22:31 Dose: 10 mg Guaifenesin (Guaifenesin 10 Ml Udc (200mg/10ml)) 20 ml PO Q4H PRN PRN PRN Reason: COUGH Hydralazine HCl (Hydralazine 20 Mg/Ml Vial) 10 mg IV Q4H PRN PRN; Protocol PRN Reason: SBP > 160 Sodium Chloride () 250 mls @ 15 mls/hr IV .[id number] PRN PRN Reason: Additional IVPB Infusion Sodium Chloride () 250 mls @ 15 mls/hr IV .[id number] PRN PRN Reason: Saline Flush Ceftriaxone Sodium (Rocephin) 1 gm in 50 mls @ 100 mls/hr IV Q24H SAUD Azithromycin 500 mg/ Dextrose 255 mls @ 250 mls/hr IV Q24H [facility] Melatonin (Melatonin 3 Mg Tablet) 3 mg PO QHS PRN PRN PRN Reason: INSOMNIA Memantine (Memantine Hydrochloride 10 Mg Tablet) 10 mg PO BID [facility] Last Admin: 04/17/23 08:31 Dose: 10 mg Mirtazapine (Mirtazapine 15 Mg Tablet) 7.5 mg PO QHS [facility] Last Admin: 04/16/23 22:30 Dose: 7.5 mg Nutritional Formula (Lactose Free) (Ensure Plus High Protein 120 Ml Liquid) 120ml PO 4X/DAY [facility] Last Admin: 04/17/23 13:58 Dose: 120 ml Ondansetron HCl (Ondansetron 4 Mg/2 Ml Vial) 4 mg IV Q8H PRN PRN PRN Reason: NAUSEA/VOMITING Pramipexole Dihydrochloride (Pramipexole Di-Hcl 0.5 Mg Tablet) 0.5 mg PO QHS [facility] Last Admin: 04/16/23 22:31 Dose: 0.5 mg Prochlorperazine Edisylate (Prochlorperazine 10 Mg/2 Ml Vial) 5 mg IV Q4H PRN PRN PRN Reason: Breakthrough nausea/vomiting Propranolol HCl (Propranolol 40 Mg Tablet) 40 mg PO 0600 [facility] Last Admin: 04/17/23 04:09 Dose: Not Given Propranolol HCl (Propranolol 10 Mg Tablet) 20 mg PO 1200,1700 [facility] Last Admin: 04/17/23 12:48 Dose: 20 mg Senna/Docusate Sodium (Senna/Docusate Sodium 1 Tablet) 2 tablet PO BID PRN PRN PRN Reason: Constipation Sodium Chloride (0.9% Saline Lock 10 Ml Syringe) 10 - 40 ml IV UD PRN PRN Reason: SALINE FLUSH Tramadol HCl (Tramadol 50 Mg Tablet) 50 mg PO Q8H PRN PRN PRN Reason: Pain Score 4-10 Charges/Coding Visit Charges Inpatient E&M: 37477 Subs Hosp L2 04/17/23 1552 <Electronically signed by Darinel Carlos MD> Cosigner Signature (if applicable): CC: ~ Signed [facility] Work Phone: 1(317) 484-858011-03-2023 History and physical note Author Karon Nunes [facility] April 16, 2023 10:33pm Note Date/Time April 16, 2023 7 :37pm [facility] Medical Records Department [address] [place] [address] H&P Exam - Hospitalist 04/16/231935 MR#: [id number] Acct: [id number] Name: SAPNA BULLARD Rep #:[id number] : 1940 83 From: Karon Nunes MD PCP: Dr. Nicci Lemus MD Status:ADM I N Location: [facility] [place] ON572-4 HPI - General General Date of Admission: 04/16/23 Date of Service: 04/16/23 Chief Complaint: Confusion, weakness, debility. HPI Narrative The patient is an 83 y/o F w/ PMHx: Essential tremor, Allergic rhinitis, GERD, Chronic normocytic anemia/Fe deficiency anemia, Anxiety and Depression, Dementiaunclear type with unclear behavioral disturbance history, Former tobacco use whopresents to the [facility] ED on 04/16/23 with history of altered mentation brought in by the family with recent history of UTI the week prior treated with unclear type of abx therapy which was completed but today she had sudden onset increasedconfusion, increased weakness and malaise as well as ongoing dysuria prompting ED evaluation. She per family has not had marked cough or URI type symptoms nor any evidence of dyspnea. Work-up in the ED included T initially 98 with most recent repeat 101.4, heart initially 100 with most recent repeat 63, BP initially 170/118 with most recent repeat 106/90, respiratory rate 19-20, 94 to 96% on room air, CBC with WBC 9.7, hemoglobin 0.7, MCV 88, platelet 396 with left shift, CMP with sodium 135, potassium 3.3 otherwise unremarkable, troponin 14, urinalysis with cloudy appearing urine, specific remedy 1.010, protein 15, occult blood 25, negative nitrate, leukocyte Estrace 500 with urine WBCs 10-25 with 1+ urine bacteria, urine culture pending per ED, rapid SARS COVID and influenza antigens negative, chest x-ray with findings concerning for left lowerlobe pneumonia with patchy consolidation noted. In the ED patient ministered Tylenol 1000 mg p.o. x1, normal saline as well as azithromycin and IV Rocephin. [facility] Medical History (Updated 04/16/23 @ 22:[address] Karon Nunes MD) Acid reflux Anemia Anxiety Chronic low back pain Cognitive decline Dementia Essential tremor Former smoker Fracture of left humerus GERD (gastroesophageal reflux disease) History of ovarian cyst History of wrist fracture Hyperlipemia Hypertension Osteoporosis Restless leg syndrome Wears hearing aid in both ears Home Medications tramadol 50 mg tablet 50 mg PO Q8H PRN Pain 02/11/22 [History Last Taken Unknown] acetaminophen 325 mg capsule (Tylenol) 650 mg PO Q4H PRN pain 07/10/22 [History Last Taken Unknown] calcium citrate 250 mg calcium-vitamin D3 5 mcg (200 unit) tablet 1 tab PO TID Supplement #90 tabs 03/17/23 [Rx Last Taken Unknown] donepezil 10 mg tablet 10 mg PO QHS #30 tabs 03/17/23 [Rx Last Taken Unknown] memantine 10 mg tablet (Namenda) 10 mg PO BID #60 tabs 03/17/23 [Rx Last Taken Unknown] mirtazapine 7.5 mg tablet 7.5 mg PO QHS #30 tabs 03/17/23 [Rx Last Taken Unknown] pramipexole 0.5 mg tablet 0.5 mg PO QHS #30 tabs 03/17/23 [Rx Last Taken Unknown] propranolol 20 mg tablet 20 mg PO .COMPLEX #120 tabs 03/17/23 [Rx Last Taken Unknown] Allergy/AdvReac Type Severity Reaction Status Date / Time No Known Allergies Allergy Verified 04/16/23 17:08 Family History Grandmother Colon cancer Father Colon cancer Heart disease Brother Colon cancer Heart disease Mother Heart disease High cholesterol Surgical History History of carpal tunnel surgery of left wrist History of hip surgery History of orthopedic surgery Social History household members: none Smoking Status: Former smoker how long ago did patient quit smokin second hand exposure: No alcohol intake: never substance use type: does not use what type of physical activity do you participate in: other details: PT frequency: 1-2 times per week herrera/mandaen: [employer] seatbelt use: always ROS Review of Systems ROS Unobtainable: due to encephalopathy Vital Signs Vital Signs Vital Signs: 04/16/23 17:08 04/16/23 17:17 04/16/23 18:51 Temperature 98 F 100.1 F H 101.4 F H Temperature Source Temporal Oral Temporal Pulse Rate 100 63 Respiratory Rate 20 H 19 H Blood Pressure 170/118 H 106/90 H Blood Pressure Mean 135 95 Pulse Ox 96 94 Oxygen Delivery Method Room Air Room Air Weight Weight: 106 lb 1.6 oz Body Mass Index (BMI) 17.6 Physical Exam Narrative Physical Examination: General: Awake, alert, oriented to self, son but is very fatigued and mildly lethargic, extremely hard of hearing, does remain cooperative, seated upright inthe ED bed, frail and fatigued appearing. Skin: Normal color, normal turgor, no icterus, no cyanosis except for very staged occasional ecchymoses especially extremities. HEENT: AT/NC, EOMI, PERRLA, dry MM, no carotid bruits or JVD noted. Lungs: Diminished, greater bases, left potentially greater than right, decreasedeffort, no rales, ronchi or wheezing. Heart: Mildly tachycardic with regular rhythm; no gallop, rub audible. Abdomen: Soft, thin habitus, cachectic appearing, NTTP, ND, mildly hyperactive BS, no HSM. Extremities: No cyanosis or clubbing. Neurological: Patient awake, alert, oriented as noted, cognitive function decreased from baseline intact per discussion with patient's son who is present;pupils equally reactive to light and accommodation, cranial nerves grossly normal, moving all 4 extremities, no focal deficits, strength severely globally decreased secondary to acute presentation. Psychiatric: Affect appears flat, fatigued, no acute evidence of depressive or anxiety feelings but does have underlying history. Results Lab / Micro Data 04/16/23 18:04 04/16/23 18:04 Labs: Laboratory Results - last 24 hr 04/16/23 18:04: WBC 9.7, RBC 4.34, Hgb 11.7 L, Hct 38.2, MCV 88.0, MCH 27.0, MCHC 30.6 L, RDW Std Deviation 42.4, RDW Coeff of Tiffanie 13.2, Plt Count 396, MPV 8.6, Immature Gran % (Auto) 0.400, Neut % (Auto) 80.3 H, Lymph % (Auto) 10.8 L, [place] % (Auto) 8.0, Eos % (Auto) 0.1, Baso % (Auto) 0.4, Absolute Neuts (auto) 7.8 H, Absolute Lymphs (auto) 1.05, Nucleated RBC % 0, Sodium 135 L, Potassium 3.3 L, Chloride 101, Carbon Dioxide 29.0, Anion Gap 5, BUN 14, Creatinine 0.95, Estim Creat Clear Calc 34.69, Est GFR (MDRD) Af Amer 72, Est GFR (MDRD) Non-Af 60, BUN/Creatinine Ratio 14.7, Glucose 100, Calcium 8.7, Total Bilirubin 0.50, AST 18, ALT 17, Alkaline Phosphatase 117, Troponin I High Sens 14, Total Protein7.0, Albumin 3.1 L, Globulin 3.9, Albumin/Globulin Ratio 0.8 L 04/16/23 18:27: Urine Color Yellow, Urine Clarity Sl. Cloudy, Urine pH 7.0, Ur Specific [place] 1.010, Urine Protein 15 H, Urine Glucose (UA) Normal, Urine Ketones Negative, Urine Occult Blood 25 H, Urine Nitrite Negative, Urine Bilirubin Negative, Urine Urobilinogen Normal, Ur Leukocyte Esterase 500 H, Urine RBC 0-5 SEEN, Urine WBC 10-25 SEEN, Ur Squamous Epith Cells 0 SEEN, Urine Bacteria 1+, Urine Mucus 0 SEEN Micro: Microbiology 04/16/23 18:45 Nasal Secretion SARS-CoV-2 & FLU Antigen (Rapid) - Final Radiology Impression Chest X-Ray 04/16/23 18:10 IMPRESSION: Left lower lobe pneumonia. Electronically Signed: Bernardo Vargas MD at 18:46 EDT , Assessment & Plan Assessment/Plan (1) UTI (urinary tract infection): PLAN: Plan The patient is an 83 y/o F w/ PMHx: Essential tremor, Allergic rhinitis, GERD, Chronic normocytic anemia/Fe deficiency anemia, Anxiety and Depression, Dementiaunclear type with unclear behavioral disturbance history, Former tobacco use whopresents to the [facility] ED on 04/16/23 with history of altered mentation brought in by the family with recent history of UTI the week prior treated with unclear type of abx therapy which was completed but today she had sudden onset increasedconfusion, increased weakness and malaise as well as ongoing dysuria prompting ED evaluation. #1. Adult FTT and Acute Encephalopathy, multifactorial, secondary to Left lowerlobe pneumonia, community-acquired and concurrent #2: We will admit to medical surgical floor, supplemental oxygen as needed however currently appropriate on room air, PRN albuterol, maintained on IV Rocephin and azithromycin, HOB, IS parameters w/ pending sputum cultures, full respiratory viral panel and urine antigens. PT/OT/case management consultation for discharge planning #2. Acute Urinary Tract Infection with recent diagnosis week prior, treated with abx therapy, possibly failed outpatient treatment, unclear prior organism or sensitivies: UA upon ED evaluation remarkable, pending UCx, continue IVFs, monitor I/Os, continue IV Rocephin as noted above w/ transition as able pending sensitivities and speciation. #3. Hypokalemia: Admission K+ 3.3, magnesium level requested, supplementation given, repeat level in AM. #4. Dementia, unclear type with unclear behavioral disturbance history: Complicates presentation, continue patient home donepezil as well as memantine home regimen, maintain on fall and aspiration precautions, PT/OT/case managementconsulted for discharge planning. #5. Anxiety and depression: We will continue patient home mirtazapine regimen. #6. Essential tremor: We will continue patient home propranolol low-dose regimen. #7. Restless leg syndrome: We will continue patient home pramipexole regimen. #8. Chronic normocytic anemia/iron deficiency anemia: Admission hemoglobin 11.7, MCV 88, baseline hemoglobin primarily 10-11, stable, continue to trend, currently noted history also of iron deficiency anemia not on any chronic regimen, encourage continued outpatient assessments. #9. GERD: Per list not on chronic regimen, will have as needed Mylanta. #10. DVT prophylaxis: Lovenox. #11. CODE status: Patient CIRO is her son who is present and living will is currently in place. Discussed CODE status at length including difference betweenFULL code, DNR-CCA and DNR-CC status. Following discussions about the differences in these status, requested DNR-CCA, no intubation status. Advanced Care Planning Face to Face Time: 16 minutes. Charges/Coding Visit Charges Inpatient E&M: 16374 Init Hosp L3 Procedures Hospitalists Procedures: 96825 Advncd Care Plan 30 Min 04/16/232232 <Electronically signed by Karon Nunes MD> Cosigner Signature (if applicable): CC: Dr. Karon Nunes MD; Dr. Nicci Lemus MD~ Signed [facility] Work Phone: 1(180) 624-431311-02-2023 Discharge summary Author Nicholas Cohen [facility] April 16, 2023 9:08pm Note Date/Time April 16, 2023 7 :09pm [facility] Medical Records Department [address] [place] [address] Emergency Department Summary 04/16/23 MR#: [id number] Acct: [id number] Name: SAPNA BULLARD Rep #:[id number] : 1940 83 From: Nicholas Cohen DO PCP: Dr. Nicci Lemus MD Status:ADM I N Location: [address] History of Present Illness Chief Complaint: Confusion Narrative Narrative: 83-year-old female presenting with altered mental status. Patient presents withher family. Patient is confused. Patient's family states she had a UTI last week and was treated with antibiotics but they do not know what kind. They state that really her symptoms started today with confusion. She is weak and cannot walk. They states she is not coughing or short of breath. She complainsof dysuria. [facility] Medical History Acid reflux Acute UTI Anemia Anxiety Chronic low back pain Chronic pain Fall Fatigue Former smoker Fracture of left humerus History of ovarian cyst History of wrist fracture Hyperlipemia Hypertension Osteoporosis Post-nasal drainage Rhabdomyolysis Wears hearing aid in both ears Home Medications tramadol 50 mg tablet 50 mg PO Q8H PRN Pain 02/11/22 [History Last Taken Unknown] acetaminophen 325 mg capsule (Tylenol) 650 mg PO Q4H PRN pain 07/10/22 [History Last Taken Unknown] calcium citrate 250 mg calcium-vitamin D3 5 mcg (200 unit) tablet 1 tab PO TID Supplement #90 tabs 03/17/23 [Rx Last Taken Unknown] donepezil 10 mg tablet 10 mg PO QHS #30 tabs 03/17/23 [Rx Last Taken Unknown] memantine 10 mg tablet (Namenda) 10 mg PO BID #60 tabs 03/17/23 [Rx Last Taken Unknown] mirtazapine 7.5 mg tablet 7.5 mg PO QHS #30 tabs 03/17/23 [Rx Last Taken Unknown] pramipexole 0.5 mg tablet 0.5 mg PO QHS #30 tabs 03/17/23 [Rx Last Taken Unknown] propranolol 20 mg tablet 20 mg PO .COMPLEX #120 tabs 03/17/23 [Rx Last Taken Unknown] Allergy/AdvReac Type Severity Reaction Status Date / Time No Known Allergies Allergy Verified 04/16/23 17:08 Family History Grandmother Colon cancer Father Colon cancer Heart disease Brother Colon cancer Heart disease Mother Heart disease High cholesterol Surgical History History of carpal tunnel surgery of left wrist History of hip surgery History of orthopedic surgery Social History household members: none Smoking Status: Former smoker how long ago did patient quit smokin second hand exposure: No alcohol intake: never substance use type: does not use what type of physical activity do you participate in: other details: PT frequency: 1-2 times per week herrera/mandaen: [employer]ism seatbelt use: always ROS ROS ED Constitutional Constitutional ED: Reports chills; Denies sweats Eyes Eyes: Denies blurry vision or change in vision ENT ENT ED: Denies ear pain or sore throat Cardiovascular Cardiovascular: Denies chest pain, palpitations or racing heartbeat Respiratory/Chest Respiratory/Chest: Denies cough, dyspnea or sputum Gastrointestinal Gastrointestinal: Reports abdominal pain; Denies constipation, diarrhea, nausea or vomiting Genitourinary Genitourinary ED: Reports dysuria; Denies hematuria or urinary frequency Musculoskeletal Musculoskeletal: Reports myalgias; Denies arthralgias or neck pain Integumentary Denies abscess, Abrasions or rash Neurologic Neurologic: Denies headache(s), paresthesias or weakness Psychiatric Psychiatric: Denies anxiety, depression, suicidal ideation or suicidal thoughts Endocrine Endocrinology: Denies polydipsia or polyuria EXAM Physical Exam Const Vital Signs: 04/16/23 17:08 04/16/23 17:17 04/16/23 18:51 Temperature 98 F 100.1 F H 101.4 F H Temperature Source Temporal Oral Temporal Pulse Rate 100 63 Respiratory Rate 20 H 19 H Blood Pressure 170/118 H 106/90 H Blood Pressure Mean 135 95 Pulse Ox 96 94 Oxygen Delivery Method Room Air Room Air General Appearance ED: NAD HEENT Reports moist mucous membranes Eyes PERRL and EOMs intact bilaterally Neck no lymphadenopathy Chest Wall inspection of chest normal and palpation of chest normal Resp normal respiratory effort and clear to auscultation bilaterally Auscultation: Negative for rales, rhonchi or wheezes Cardio regular rate and regular rhythm GI normal to inspection, nondistended, normoactive bowel sounds Back/Spine no CVA tenderness Neuro CN's II-XII intact bilaterally and no sensory deficits noted Sensorium / Orientation: alert and orientation impaired Motor Exam: general weakness Psych Psych Narrative: Confused MDM MDM MDM Narrative Medical decision making narrative: Patient presenting with confusion. She is a poor informant. Family states she is too weak to walk. She has history of UTI about a week ago which was treated with Macrobid after reviewing the record. Includes UTI, dehydration, electrolyte normalities, pneumonia, COVID, influenza, ACS. COVID and flu swab obtained. CBC to assess white blood cell count, hemoglobin, platelets. CMP to assess liver function, renal function, electrolytes. Urinalysis to assess for UTI. EKG to assess for dysrhythmia/ischemia as well as high-sensitivity troponin. Chest x-ray to rule out pneumonia. CBC shows a normal at that cell count of 9.7. Hemoglobin stable 11.7. Platelets are normal at 396. LFTs unremarkable. Renal function and electrolytes within normal limits. High-sensitivity troponin is 14. EKG on my interpretation shows a sinus rhythm at a ventricular rate of 67 bpm without sign of ischemic change. Left bundle branch block pattern noted. Chest x-ray my interpretation shows left lower lobe pneumonia. Urinalysis concerning for UTI. Patient given Rocephin and azithromycin. Family feels she is too weak to go home and she lives alone. Will discuss with the hospitalist for admission. Impression: 1. Debility 2. UTI 3. Pneumonia Lab Data Attestation: I reviewed the patient's lab results. Labs: Laboratory Results - last 24 hr 04/16/23 04/16/23 18:04 18:27 WBC 9.7 RBC 4.34 Hgb 11.7 L Hct 38.2 MCV 88.0 MCH 27.0 MCHC 30.6 L RDW Std Deviation 42.4 RDW Coeff of Tiffanie 13.2 Plt Count 396 MPV 8.6 Immature Gran % (Auto) 0.400 Neut % (Auto) 80.3 H Lymph % (Auto) 10.8 L [place] % (Auto) 8.0 Eos % (Auto) 0.1 Baso % (Auto) 0.4 Absolute Neuts (auto) 7.8 H Absolute Lymphs (auto) 1.05 Nucleated RBC % 0 Sodium 135 L Potassium 3.3 L Chloride 101 Carbon Dioxide 29.0 Anion Gap 5 BUN 14 Creatinine 0.95 Estim Creat Clear Calc 34.69 Est GFR (MDRD) Af Amer 72 Est GFR (MDRD) Non-Af 60 BUN/Creatinine Ratio 14.7 Glucose 100 Calcium 8.7 Magnesium 2.0 Total Bilirubin 0.50 AST 18 ALT 17 Alkaline Phosphatase 117 Troponin I High Sens 14 Total Protein 7.0 Albumin 3.1 L Globulin 3.9 Albumin/Globulin Ratio 0.8 L Urine Color Yellow Urine Clarity Sl. Cloudy Urine pH 7.0 Ur Specific [place] 1.010 Urine Protein 15 H Urine Glucose (UA) Normal Urine Ketones Negative Urine Occult Blood 25 H Urine Nitrite Negative Urine Bilirubin Negative Urine Urobilinogen Normal Ur Leukocyte Esterase 500 H Urine RBC 0-5 SEEN Urine WBC 10-25 SEEN Ur Squamous Epith Cells 0 SEEN Urine Bacteria 1+ Urine Mucus 0 SEEN Radiography Diagnostic Testing: Clinical Impression(s) from Imaging Studies Chest X-Ray 04/16/23 18:10 IMPRESSION: Left lower lobe pneumonia. Electronically Signed: Bernardo Vargas MD at 18:46 EDT , Discharge Plan Triage Chief Complaint: Confusion ED Provider: Nicholas Cohen Dx/Rx/DC Orders Primary Care Provider: Nicci Lemus What to do if you have Problems For any increased pain, shortness of breath, bleeding, nausea or vomiting, chestpain, or any unexpected problems, contact your Primary Care Provider. Call [facility] ([phone]) or report to the closest Emergency Room. Call 911 if necessary. 04/16/232107 <Electronically signed by Nicholas Cohen DO> Cosigner Signature (if applicable): CC: Dr. Nicci Lemus MD ~ Signed [facility] Work Phone: 1(516) 474-437009-03-2022 Hospital Discharge instructions Additional Instructions Recommend repeat basic metabolic panel in 3 to 5 days to assess BUN and creatinine [facility] Work Phone: Consult note Author Tanya Cha [facility] April 23, 2023 1:32pm Note Date/Time April 23, 2023 1 :32pm [facility] Medical Records Department [address] [place] [address] Counseling Note - Pharmacy 04/23/23 1332 MR#: [id number] Acct: [id number] Name: SAPNA BULLARD Rep #:[id number] : 1940 83 From: Tanya Cha PCP: Dr. Nicci Lemus MD Status:DIS I N Y Location: [place] [address] Pharmacy [place] Med Reconciliation Pharmacy Service has performed discharge medication reconciliation for this patient upon transfer to [place] The patient's discharge medication list was reviewed for discrepancies and discrepancies were resolved. Medications at Discharge Home Medications tramadol 50 mg tablet 50 mg PO Q8H PRN Pain 02/11/22 calcium citrate 250 mg calcium-vitamin D3 5 mcg (200 unit) tablet 1 tab PO TID Supplement #90 tabs 03/17/23 acetaminophen 325 mg tablet 650 mg (2 x 325 mg) PO Q4H PRN PRN Fever, pain 1- 03/24 #30 tabs 04/23/23 donepezil 10 mg tablet 10 mg PO QHS #30 tabs 04/23/23 food supplemt, lactose-reduced 0.08 gram-1.5 kcal/mL oral liquid (Ensure Plus High Protein) 120 ml PO 4X/DAY #0 mL 04/23/23 memantine 10 mg tablet 10 mg PO BID #60 tabs 04/23/23 menthol 0.44 %-zinc oxide 20.6 % topical ointment (Calmoseptine) 1 applic topical 4X/DAY #0 grams 04/23/23 mirtazapine 15 mg tablet 15 mg PO QHS #30 tabs 04/23/23 pramipexole 0.5 mg tablet 0.5 mg PO QHS #30 tabs 04/23/23 propranolol 10 mg tablet 20 mg (2 x 10 mg) PO 1200,1700 #60 tabs 04/23/23 propranolol 40 mg tablet 40 mg PO 0600 #30 tabs 04/23/23 quetiapine 25 mg tablet 25 mg PO QHS #30 tabs 04/23/23 sennosides 8.6 mg-docusate sodium 50 mg tablet (Stool Softener-Stimulant Laxative) 2 tab PO BID PRN PRN Constipation #0 tabs 04/23/23 tramadol 50 mg tablet 50 mg PO Q8H PRN PRN Pain Score 4-10 #60 tabs 04/23/23 04/23/23 1332 <Electronically signed by Tanya Cha > Date _ Tanya Cha Cosigner Signature (if applicable): Date CC: ~ Signed [facility] Work Phone: Discharge summary Author John Johnston [facility] April 23, 2023 11:48am Note Date/Time April 23, 2023 1 1:38am [facility] Medical Records Department [address] [place] [address] Instructions for Home/Discharge Instructions 04/23/23 1138 MR#: [id number] Acct: [id number] Name: JUAN MIGUELELSASAPNA E Rep #:[id number] : 1940 83 From: John Johnston DO PCP: Dr. Nicci Lemus MD Status:ADM I N Discharge Instructions Diet Discharge Diet: No restrictions Activity Discharge Activity: Return to Normal Activity and Use Walker Weight Bearing Status: Full weight bearing Follow Up Care Test Results: Test results from this visit will be discussed in further detail at your follow- up appointment, if applicable. Discharge Plan Admission Admit Date/Time: 04/16/23 19:53 Primary Reason for Your Visit: debility,pneumonia, urinary tract infection Attending Provider: John Johnston Primary Care Provider: Nicci Lemus Consulting Providers: Karon Nunes; Darinel Carlos; Pravin Cruz Discharge Orders/Prescriptions Prescriptions: New quetiapine 25 mg Tablet 25 mg PO QHS Qty: 30 0RF acetaminophen 325 mg Tablet 650 mg PO Q4H PRN PRN (Reason: Fever, pain 1-03/24) Qty: 30 0RF donepezil 10 mg Tablet 10 mg PO QHS Qty: 30 0RF sennosides-docusate sodium [Stool Softener-Stimulant Laxat] 8.6-50 mg Tablet 2 tab PO BID PRN PRN (Reason: Constipation) Qty: 0 0RF tramadol 50 mg Tablet 50 mg PO Q8H PRN PRN (Reason: Pain Score 4-10) Qty: 60 0RF pramipexole 0.5 mg Tablet 0.5 mg PO QHS Qty: 30 0RF propranolol 10 mg Tablet 20 mg PO 1200,1700 Qty: 60 0RF propranolol 40 mg Tablet 40 mg PO 0600 Qty: 30 0RF mirtazapine 15 mg Tablet 15 mg PO QHS Qty: 30 0RF memantine 10 mg Tablet 10 mg PO BID Qty: 60 0RF menthol-zinc oxide [Calmoseptine] 0.44-20.6 % Ointment 1 applic topical 4X/DAY Qty: 0 0RF Protocol: *Topical Application Instructions APPLICATION INSTRUCTIONS: apply to affected region Ensure Plus High Protein 0.08 gram-1.5 kcal/mL Liquid 120 ml PO 4X/DAY Qty: 0 0RF Continued calcium citrate 250 mg calcium-vitamin D3 200 unit tablet 250 mg-5 mcg (200 unit) tablet 1 tab PO TID Qty: 90 4RF Discontinued acetaminophen [Tylenol] 325 mg capsule 650 mg PO Q4H PRN (Reason: pain) pramipexole 0.5 mg tablet 0.5 mg PO QHS Qty: 30 4RF mirtazapine 7.5 mg tablet 7.5 mg PO QHS Qty: 30 4RF donepezil 10 mg tablet 10 mg PO QHS Qty: 30 4RF memantine [Namenda] 10 mg tablet 10 mg PO BID Qty: 60 4RF propranolol 20 mg tablet 20 mg PO .COMPLEX Qty: 120 5RF Rx Instructions: Take 2 tablets orally qAM, 1 tablet qNoon and 1 tablet q5PM. Package patient's medications in blister packs. No Action tramadol 50 mg tablet 50 mg PO Q8H PRN (Reason: Pain) Referrals / Follow Up: Lalo Palm DO [Med Staff - Code Official] - Within 1 Month Nicci Lemus MD [Primary Care Provider] - Disposition Disposition (needs filled in before D/C Order can be placed): Assisted Living 04/23/23 1148<Electronically signed by John Johnston DO>John Johnston DO CC: Dr. Karon Nunes MD; Dr. Nicci Lemus MD; Dr. Pravin Cruz MD; Dr. Darinel Carlos MD ~ Signed [facility] Work Phone: Evaluation note* Diagnosis Onset Date Resolution Status Cognitive decline acute Essential tremor chronic GERD (gastroesophageal reflux disease) chronic Low back pain chronic Acute hypokalemia acute Acute UTI acute Dehydration acute Encephalopathy acute Fall acute Rhabdomyolysis acute Essential tremor chronic [facility] Work Phone: Evaluation note* Diagnosis Onset Date Resolution Status Cognitive decline acute Essential tremor chronic GERD (gastroesophageal reflux disease) chronic Low back pain chronic Essential tremor chronic Acute hypokalemia resolved Dehydration resolved Encephalopathy resolved Allergic rhinitis acute Debility acute Encephalopathy acute Essential tremor acute Hypokalemia acute Insomnia acute Iron deficiency anemia acute Osteoporosis acute Restless leg syndrome acute Rhabdomyolysis acute Urinary tract infection acut e Vitamin D deficiency acute [facility] Work Phone: Evaluation note* Diagnosis Onset Date Resolution Status Essential tremor chronic Acute hypokalemia resolved Dehydration resolved Encephalopathy resolved Allergic rhinitis acute Debility acute Essential tremor acute Insomnia acute Iron deficiency anemia acute Osteoporosis acute Restless leg syndrome acute Vitamin D deficiency acute Encephalopathy resolved Hypokalemia resolved Rhabdomyolysis resolved Urinary tract infection reso lved Dementia chronic Fatigue chronic [facility] Work Phone: Evaluation note* Diagnosis Onset Date Resolution Status Anxiety chronic Vitamin D deficiency chronic Urinary tract infection none active UTI (urinary tract infection) acute [facility] Work Phone: Evaluation note* Diagnosis Onset Date Resolution Status UTI (urinary tract infection) resolved Anxiety chronic Vitamin D deficiency [facility] Work Phone: Evaluation note* Diagnosis Onset Date Resolution Status Anxiety chronic Vitamin D deficiency chronic Urinary tract infection none active UTI (urinary tract infection) resolved [facility] Work Phone: Reason for referral (narrative)No reason for referral information [facility]ari[facility] Work [facility]: Reason for Referral Status Reason Specialty Diagnoses / Procedures Referred By Contact Referred To Contact Authorized Radiology Diagnoses Other closed displaced fracture of distal end of left humerus, initial encounter Procedures CT ELBOW LEFT WO CONTRAST Gerson Adamson MD [address] [place] [address] [place] [id number] Assessments Diagnosis Other closed displaced fracture of distal end of left humerus, initial encounter Summary Purpose Family History No Family History Records Found Relationship Condition Age at Onset Recorded Date/T britney grandmother Malignant neoplasm of colon Unknown father Malignant neoplasm of colon Unknown Cardiac disease Unknown brother Malignant neoplasm of colon Unknown mother Cardiac disease Unknown High blood cholesterol Unknown Advance Directives No Advanced Directives Records Found Advance Directive Response Recorded Date/ Time Name of Medical Power of It Support Manager annette juarezbryce December 10, 2021 8:22pm Living Will Yes December 10, 2021 8:22pm Power of It Support Manager Yes December 10 8:22pm Advance Directive Response Recorded Date/ Time Name of Medical Power of It Support Manager Annette Juan Miguel December 11, 2021 1:38am Living Will Yes December 11, 2021 1:38am Power of It Support Manager Yes December 11 1:38am Advance Directive Response Recorded Date/ Time Name of Medical Power of It Support Manager Annette Bullard December 11, 2021 1:38am Name of Medical Power of It Support Manager Annette Lybryce December 13, 2021 4:16pm Living Will Yes December 17, 2021 5 :14pm Power of It Support Manager No December 17, 2021 5:14pm Advance Directive Response Recorded Date/ Time Name of Medical Power of It Support Manager Annette Bullard December 11, 2021 1:38am Name of Medical Power of It Support Manager Annette Bullard December 13, 2021 4:16pm Name of Medical Power of It Support Manager son February 15, 2022 1:17pm Living Will Yes February 15, 1:17pm Power of It Support Manager Yes February 15, 2022 1:17pm Advance Directive Response Recorded Date/ Time Name of Medical Power of It Support Manager Annette Bullard April 16, 2023 8:33pm Living Will Yes April 16 8:33pm Power of It Support Manager Yes April 16, 2023 8:33pm Advance Directive Response Recorded Date/ Time Living Will Yes April 16 9:33pm Do you have a Healthcare Power of It Support Manager? Yes April 16, 2023 9:33pm Chief Complaint and Reason for Visit Chief Complaint F/U fall, RHABDOMYOLYSIS, ENCEPHALOPATHY Reason for Visit Cognitive decline Essential tremor GERD (gastroesophageal reflux disease) Low back pain Acute hypokalemia Acute UTI Dehydration Encephalopathy Fall Rhabdomyolysis Essential tremor Chief Complaint F/U fall, RHABDOMYOLYSIS, ENCEPHALOPATHY fall, RHABDOMYOLYSIS, ENCEPHALOPATHY fall, RHABDOMYOLYSIS, ENCEPHALOPATHY Reason for Visit Cognitive decline Essential tremor GERD (gastroesophageal reflux disease) Low back pain Acute hypokalemia Acute UTI Dehydration Encephalopathy Fall Rhabdomyolysis Essential tremor Chief Complaint F/U fall, RHABDOMYOLYSIS, ENCEPHALOPATHY fall, RHABDOMYOLYSIS, ENCEPHALOPATHY fall, RHABDOMYOLYSIS, ENCEPHALOPATHY FALL, RHABDOMYOLYSIS, ENCEPHALOPATHY MENTAL STATUS CHANGE Reason for Visit Cognitive decline Essential tremor GERD (gastroesophageal reflux disease) Low back pain Essential tremor Acute hypokalemia Dehydration Encephalopathy Allergic rhinitis Debility Encephalopathy Essential tremor Hypokalemia Insomnia Iron deficiency anemia Osteoporosis Restless leg syndrome Rhabdomyolysis Urinary tract infection Vitamin D deficiency Chief Complaint fall, RHABDOMYOLYSIS , ENCEPHALOPATHY fall, RHABDOMYOLYSIS, ENCEPHALOPATHY fall, RHABDOMYOLYSIS, ENCEPHALOPATHY FALL, RHABDOMYOLYSIS, ENCEPHALOPATHY MENTAL STATUS CHANGE COGNITIVE FUNCTIONS & AWARENESS E ORDER Reason for Visit Essential tremor Acute hypokalemia Dehydration Encephalopathy Allergic rhinitis Debility Essential tremor Insomnia Iron deficiency anemia Osteoporosis Restless leg syndrome Vitamin D deficiency Encephalopathy Hypokalemia Rhabdomyolysis Urinary tract infection Dementia Fatigue Chief Complaint fall, RHABDOMYOLYSIS , ENCEPHALOPATHY fall, RHABDOMYOLYSIS, ENCEPHALOPATHY fall, RHABDOMYOLYSIS, ENCEPHALOPATHY FALL, RHABDOMYOLYSIS, ENCEPHALOPATHY MENTAL STATUS CHANGE COGNITIVE FUNCTIONS & AWARENESS E ORDER SYNCOPE Reason for Visit Essential tremor Acute hypokalemia Dehydration Encephalopathy Allergic rhinitis Debility Essential tremor Insomnia Iron deficiency anemia Osteoporosis Restless leg syndrome Vitamin D deficiency Encephalopathy Hypokalemia Rhabdomyolysis Urinary tract infection Dementia Fatigue Chief Complaint 4 M FU Urinary tract infection PNA, UTI, ADULT FTT PNA, UTI, ADULT FTT PNA, UTI, ADULT FTT PNA, UTI, ADULT FTT PNA, UTI, ADULT FTT PNA, UTI, ADULT FTT PNA, UTI, ADULT FTT Reason for Visit Anxiety Vitamin D deficiency Urinary tract infection UTI (urinary tract infection) Chief Complaint PNA, UTI, ADULT FTT PNA, UTI, ADULT FTT PNA, UTI, ADULT FTT PNA, UTI, ADULT FTT EORDER 4 BALANCE/STRENGHTHENING RX HERE EORDER EORDER Reason for Visit UTI (urinary tract i nfection) Anxiety Vitamin D deficiency Chief Complaint PNA, UTI, ADULT FTT PNA, UTI, ADULT FTT PNA, UTI, ADULT FTT EORDER 4 BALANCE/STRENGHTHENING RX HERE EORDER EORDER Reason for Visit UTI (urinary tract i nfection) Anxiety Vitamin D deficiency Chief Complaint 4 M FU Urinary tract infection PNA, UTI, ADULT FTT PNA, UTI, ADULT FTT PNA, UTI, ADULT FTT PNA, UTI, ADULT FTT PNA, UTI, ADULT FTT PNA, UTI, ADULT FTT PNA, UTI, ADULT FTT PNA, UTI, ADULT FTT BALANCE/STRENGHTHENING RX HERE EORDER Reason for Visit Anxiety Vitamin D deficiency Urinary tract infection UTI (urinary tract infection) Chief Complaint Admit Date LAB WORK June 30, 2024 5 :00am ADMISSION EXAM July 04, 2024 5 :20pm ADMISSION EXAM July 12, 2024 1 :52pm 6 M FU July 19, 2024 9 :51am [facility] July 5:00am J98.4 Other disorders of lung July 162024 5:50pm LABOWRK August 29, 2024 5:0 0am Lung Nodule September 08, 2024 11: 20am LABWORK October 03, 2024 5:[address] (Self) October 05, 2024 9:0 0am Reason for Visit Admit Date Anxiety July 19, 2024 9 :51am Dementia July 19, 2024 9 :51am Insomnia July 19, 2024 9 :51am Restless leg syndrome July 19, 2024 9:51am Vitamin D deficiency July 19, 2024 9:51am Essential tremor July 19, 2024 9 :51am Abnormal chest CT September 08, 2024 11: 20am Left bundle branch block October 05 9:00am Abnormal chest CT October 05, 2024 9:0 0am Dementia October 05, 2024 9:0 0am Hyperlipemia October 05, 2024 9:0 0am Additional Source Comments INFORMATION SOURCE (unrecogn ized section and content) DATE CREATED AUTHOR [facility]07/2020 [facility] DATE CREATED AUTHOR AUTHOR'S ORGANIZ ATION 12/16/2022 [facility] ([place]) DATE CREATED AUTHOR AUTHOR'S ORGANIZ ATION 08/13/2024 [facility] DATE CREATED AUTHOR AUTHOR'S ORGANIZ ATION 11/21/2024 [facility] Goals (unrecognized section and content) Goals may be documented in a n alternate sectionGoals may be documented in an alternate section Care Teams (unrecognized sec tion and content) Team Status: Active Member Role Status Dates Dr. Lalo Palm DO Family Provider Active Dr. Nicci Lemus MD Primary Care Provider Active Team Status: Inactive Member Role Status Dates Dr. Lalo Palm DO Primary Care Provider, Referr ing Provider Active Dr. Vish Cook MD Attending Provider Active Team Status: Inactive Member Role Status Dates Dr. Lalo Palm DO Primary Care Provider, Referr ing Provider Active Elliott Grigsby COLLISION TECHNICIAN, COLLISION TECHNICIAN-C Attending Provider Active Team Status: Active Member Role Status Dates Dr. Nicholas Cohen DO Emergency Provider Active Dr. Nicci Lemus MD Primary Care Provider Active Dr. Karon Nunes MD Admit Provider, Other Provider Active Dr. Darinel Carlos MD Attending Provider, Other Provi migdalia Active Team Status: Active Member Role Status Dates Dr. Nicholas Cohen DO Emergency Provider Active Dr. Nicci Lemus MD Primary Care Provider Active Dr. Karon Nunes MD Admit Provider, Other Provider Active Dr. Pravin Cruz MD Attending Provider, Other Provider Active Dr. Darinel Carlos MD Other Provider Active Team Status: Active Member Role Status Dates Dr. Nicholas Cohen DO Emergency Provider Active Dr. Nicci Lemus MD Primary Care Provider Active Dr. Karon Nunes MD Admit Provider, Other Provider Active Dr. Darinel Carlos MD Other Provider Active Dr. John Johnston DO Attending Provider, Other Pro vider Active Dr. Pravin Cruz MD Other Provider Active Team Status: Inactive Member Role Status Dates Dr. Lalo Palm DO Primary Care Provider Active Elliott CUBA NP-C Attending Provider Active Team Status: Inactive Member Role Status Dates Dr. Nicholas Cohen DO Emergency Provider Active Dr. Nicci Lemus MD Primary Care Provider Active Dr. Karon Nunes MD Admit Provider, Other Provider Active Dr. Darinel Carlos MD Other Provider Active Dr. John Johnston DO Attending Provider Active Dr. Pravin Cruz MD Other Provider Active Team Status: Inactive Member Role Status Dates Dr. Lalo Palm DO Referring Provider Active Dr. Vish Cook MD Attending Provider Active Dr. Nicci Lemus MD Primary Care Provider Active Team Status: Inactive Member Role Status Dates Dr. Nicci Lemus MD Primary Care Provider Active Dr. Justice Lemus MD Attending Provider, Referring Provider Active Team Status: Inactive Member Role Status Dates Dr. Nicci Lemus MD Primary Care Provider Active Dr. Vish Cook MD Attending Provider, Referring Provider Active Team Status: Active Member Role Status Dates Dr. Nicci Lemus MD Primary Care Provider Active Dr. Vish Cook MD Attending Provider, Referring Provider Active Team Status: Active Member Role Status Dates Dr. Nicci Lemus MD Primary Care Provider Active Dr. Justice Lemus MD Attending Provider, Referring Provider Active Team Status: Active Member Role Status Dates Dr. Genevieve Wu MD Primary Care Provider Active Team Status: Active Member Role Status Dates Dr. Nicci Lemus MD Primary Care Provider Active Start: June 30, 2024 Genevieve CUBA MD Attending Provider Active Start: June 30, 2024 Team Status: Inactive Member Role Status Dates Dr. Genevieve Wu MD Primary Care Provider Active Start: July 04, 2024 End: July 04, 2024 Barbara Castro NP, COLLISION TECHNICIAN-C Attending Provider Active Start: July 04, 2024 End: July 04, 2024 Team Status: Inactive Member Role Status Dates Dr. Genevieve Wu MD Primary Care Provider Active Start: July 12, 2024 End: July 12, 2024 Dr. Genevieve Wu MD Attending Provider Active Start: July 12, 2024 End: July 12, 2024 Team Status: Inactive Member Role Status Dates Dr. Nicci Lemus MD Referring Provider Active Start: July 19, 2024 End: July 19, 2024 Dr. Vish Cook MD Attending Provider Active Start: July 19, 2024 End: July 19, 2024 Dr. Genevieve Wu MD Primary Care Provider Active Start: July 19, 2024 End: July 19, 2024 Team Status: Active Member Role Status Dates Dr. Genevieve Wu MD Primary Care Provider Active Start: August 01, 2024 Genevieve CUBA MD Attending Provider Active Start: August 01, 2024 Team Status: Inactive Member Role Status Dates Dr. Genevieve Wu MD Primary Care Provider Active Start: August 03, 2024 End: August 03, 2024 Dr. Genevieve Wu MD Attending Provider Active Start: August 03, 2024 End: August 03, 2024 Dr. Genevieve Wu MD Referring Provider Active Start: August 03, 2024 End: August 03, 2024 Team Status: Inactive Member Role Status Dates Dr. Genevieve Wu MD Primary Care Provider Active Start: August 29, 2024 End: August 29, 2024 Genevieve CUBA MD Attending Provider Active Start: August 29, 2024 End: August 29, 2024 Team Status: Inactive Member Role Status Dates Dr. Genevieve Wu MD Primary Care Provider Active Start: September 08, 2024 End: September 08, 2024 Dr. Genevieve Wu MD Referring Provider Active Start: September 08, 2024 End: September 08, 2024 Dr. Willian Palm DO Attending Provider Active S tart: September 08, 2024 End: September 08, 2024 Team Status: Inactive Member Role Status Dates Dr. Genevieve Wu MD Primary Care Provider Active Start: October 03, 2024 End: October 03, 2024 Genevieve CUBA MD Attending Provider Active Start: October 03, 2024 End: October 03, 2024 Team Status: Inactive Member Role Status Dates Dr. Genevieve Wu MD Primary Care Provider Active Start: October 05, 2024 End: October 05, 2024 Dr. Genevieve Wu MD Referring Provider Active Start: October 05, 2024 End: October 05, 2024 Dr. Yunior Desai MD Attending Provider Active Start: October 05, 2024 End: October 05, 2024 FOR RECORDS PERTAINING TO PATIENTS WHO ARE [...] BE BASED ON THE PRIMARY CLINICAL RECORDS. [employer] [facility] provides no warranty or guarantee of the accuracy or completeness of information in this document.
[2024-11-28 08:55] LABS: Absolute Neutrophil Count 6.1 X10^3/uL (2.0-7.7); Basophil# 0.07 X10^3/uL; Basophil% 0.7 % (0-1); Eosinophil# 0.19 X10^3/uL; Hematocrit 40.5 % (37-47); Hemoglobin 12.3 g/dL (12.0-15.0); Lymphocyte % 22.2 % (19-41); Mean Corp Hgb Conc 30.4 g/dL (32-36); Mean Corpuscular Hgb 26.7 pg (27.0-32.0); Mean Corpuscular Volume 87.9 fL (81-99); Mean Platelet Vol. 9.3 fl (6.2-12.0); Monocyte# 0.96 X10^3/uL; Monocyte% 10.1 % (0-10); NRBC Flagged by Analyzer 0 % (0-5); Neutrophil % 64.6 % (47-70); Platelet Count 415 K/mm3 (150-450); RBC Distribution Width CV 14.6 % (11.6-14.6); RBC Distribution Width SD 46.7 fl (35.1-43.9); Red Blood Count 4.61 M/mm3 (4.2-5.4); White Blood Count 9.5 K/mm3 (4.4-11.0)
[2024-11-28 09:02] LABS: Anion Gap 14 (5-15); BUN 15 mg/dL (4-19); BUN/Creat Ratio 14.9 RATIO (10-20); Calcium,Total 9.5 mg/dL (7.6-11.0); Carbon Dioxide 23.8 mmol/L (21.0-32.0); Chloride 103 mmol/L (98-108); Creatinine, Serum 0.98 mg/dL (0.70-1.20); EST Glomerular Filtration Rate 57 (>60); Glucose 95 mg/dL (70-99); Potassium 3.4 mmol/L (3.3-5.1); Sodium Level 141 mmol/L (133-145)
== END ==
LOC: OLS.WHLTSB 05:00
PROVIDERS: PCP Internal Medicine; Visit Provider Internal Medicine
DX: E43 Unspecified severe protein-calorie malnutrition (principal)
CPT/HCPCS: 36415; 80048; 85025

== ENCOUNTER → 2024-11-28 | Outpatient (CLI) | payer MEDICARE, SELFPAY ==
--- NOTE | 2024-11-28 17:59 | CT_ITS ---
PROCEDURE: CHEST WITHOUT CONTRAST 11/28/2024 REASON FOR EXAM: ABNORMAL CHEST CT TECHNIQUE: Chest CT without contrast. Coronal and Sagittal reconstruction series were provided. One or more dose reduction techniques were used (e.g., Automated exposure control, adjustment of the mA and/or kV according to patient size, use of iterative reconstruction technique RADIATION DOSE SUMMARY: CTDlvol: 6.43 mGy DLP: 234.49 mGycm COMPARISON: CT chest with IV contrast, 08/03/2024. FINDINGS: Hardware: None. Lymph nodes: There are multiple, stable, reactive mediastinal and bilateral hilar lymph nodes. Heart and Vasculature: The heart is enlarged. There is no pericardial effusion. There is calcific vascular disease of the thoracic aorta and coronary arteries. There is aneurysmal dilatation of the mid ascending thoracic aorta measuring 4.2 cm in diameter. The mid descending thoracic aorta measures 2.4 cm in diameter. There is heavily calcified plaque in the aortic arch and the proximal and mid descending thoracic aorta. Lungs and Airways: There is stable pleural-parenchymal scarring in both lung apices. There is basilar predominant chronic interstitial lung disease with subpleural reticulation and there are is a thick walled cavity with an air-fluid level in the superior segment of the lower lobe of the left lung, again noted. There is an emergent cavitary lesion in the superior segment of the lower lobe of the right lung. There are numerous ill-defined soft tissue density nodules in the mid and lower lung zones, bilaterally. There is bronchiectasis with peribronchial consolidation in the basilar segments of the lower lobe of the left lung. Pleura: There are no pleural effusions. Upper Abdomen: The proximal abdominal aorta is heavily calcified. There is calcified plaque of the origin of the SMA and both renal arteries. Chest wall: The soft tissues of the chest wall appear unremarkable. There is moderate to severe multilevel degenerative disc disease of the thoracic and upper lumbar spine. There is moderate levoscoliosis of the thoracolumbar spine. CT/Chest without Contrast IMPRESSION: 1. Chronic interstitial lung disease with a pattern most consistent with sarco idosis, autoimmune disease, and connective tissue disease, among others. 2. Significant calcific vascular disease of the thoracoabdominal aorta and cor onary arteries. 3. Aneurysmal dilatation of the ascending thoracic aorta. 4. Other findings as noted. Reading Location: [id number]
== END | disposition home or self-care (01) ==
PROVIDERS: PCP Internal Medicine; Referring Provider Internal Medicine Critical Care Medicine; Visit Provider Internal Medicine Critical Care Medicine
DX: R93.89 Abnormal findings on diagnostic imaging of other specified body structures (principal)
CPT/HCPCS: 71250

== ENCOUNTER → 2025-01-02 | Outpatient (REF) | payer OTHER, SELFPAY ==
[2025-01-02 08:24] LABS: Hematocrit 39.4 % (37-47); Hemoglobin 11.9 g/dL (12.0-15.0); Immature Granulocytes Count 0.050 X10^3/uL (0.0-0.0); Mean Corp Hgb Conc 30.2 g/dL (32-36); Mean Corpuscular Volume 88.7 fL (81-99); Mean Platelet Vol. 9.2 fl (6.2-12.0); NRBC Flagged by Analyzer 0 % (0-5); Platelet Count 431 K/mm3 (150-450); RBC Distribution Width CV 15.1 % (11.6-14.6); RBC Distribution Width SD 49.0 fl (35.1-43.9); Red Blood Count 4.44 M/mm3 (4.2-5.4); White Blood Count 9.6 K/mm3 (4.4-11.0)
[2025-01-02 08:55] LABS: Cholesterol 187 mg/dL (<=200); Low Density Lipoprotein Calc. 97 mg/dL; Triglycerides 192 mg/dL; Very Low Density Lipoprotein 38 mg/dL (5-40); cholesterol:hdl ratio screen 3.62
[2025-01-02 09:00] LABS: AST(SGOT) 23 U/L (<=31); Alanine Aminotransfer ALT/SGPT 7 U/L (<=34); Albumin, Serum 4.0 g/dL (3.4-4.8); Alkaline Phosphatase 150 U/L (35-104); Anion Gap 16 (5-15); BUN 17 mg/dL (4-19); BUN/Creat Ratio 18.7 RATIO (10-20); Bilirubin, Direct < 0.08 mg/dL (0.00-0.30); Calcium,Total 9.7 mg/dL (7.6-11.0); Carbon Dioxide 21.7 mmol/L (21.0-32.0); Chloride 101 mmol/L (98-108); Globulin 3.6 g/dL (2.2-4.2); Glucose 76 mg/dL (70-99); Potassium 3.8 mmol/L (3.3-5.1); Vitamin D,25 Hydroxy 46.8 ng/mL (30-100)
== END ==
LOC: OLS.WHLTSB 05:00
PROVIDERS: PCP Internal Medicine; Visit Provider Internal Medicine
DX: E78.5 Hyperlipidemia, unspecified (principal); E43 Unspecified severe protein-calorie malnutrition; M62.561 Muscle wasting and atrophy, not elsewhere classified, right lower leg; M62.562 Muscle wasting and atrophy, not elsewhere classified, left lower leg; R26.2 Difficulty in walking, not elsewhere classified
CPT/HCPCS: 36415; 80048; 80061; 80076; 82306; 85025

== ENCOUNTER → 2025-01-30 05:00 | Outpatient (REF) | payer OTHER, SELFPAY ==
[2025-01-30 08:21] LABS: Hematocrit 34.7 % (37-47); Hemoglobin 10.5 g/dL (12.0-15.0); Immature Granulocytes Count 0.120 X10^3/uL (0.0-0.0); Mean Corp Hgb Conc 30.3 g/dL (32-36); Mean Corpuscular Volume 91.3 fL (81-99); Mean Platelet Vol. 9.1 fl (6.2-12.0); NRBC Flagged by Analyzer 0 % (0-5); Platelet Count 331 K/mm3 (150-450); RBC Distribution Width CV 16.2 % (11.6-14.6); RBC Distribution Width SD 53.1 fl (35.1-43.9); Red Blood Count 3.80 M/mm3 (4.2-5.4); White Blood Count 9.5 K/mm3 (4.4-11.0)
[2025-01-30 08:35] LABS: Anion Gap 11 (5-15); BUN 19 mg/dL (4-19); BUN/Creat Ratio 21.1 RATIO (10-20); Calcium,Total 9.1 mg/dL (7.6-11.0); Carbon Dioxide 25.1 mmol/L (21.0-32.0); Chloride 106 mmol/L (98-108); Glucose 128 mg/dL (70-99); Potassium 4.2 mmol/L (3.3-5.1)
== END ==
LOC: OLS.WHLTSB 05:00
PROVIDERS: PCP Internal Medicine; Visit Provider Internal Medicine
DX: E43 Unspecified severe protein-calorie malnutrition (principal); M62.561 Muscle wasting and atrophy, not elsewhere classified, right lower leg; R26.2 Difficulty in walking, not elsewhere classified; M62.562 Muscle wasting and atrophy, not elsewhere classified, left lower leg
CPT/HCPCS: 36415; 80048; 85025

== ENCOUNTER 2025-02-14 09:33 | Inpatient (IN) | payer MEDICARE, SELFPAY ==
[2025-02-14] VITALS (9 sets, daily range): BP systolic 116–135; BP diastolic 58–94; PULSE 62–89; RESP 16–22; TEMP 36.6–37.3; O2SAT 94–100; BMI 21.3; BMI 20.2
--- NOTE | 2025-02-14 10:56 | EKG12_ITS ---
Test Reason : WEAKNESS Blood Pressure : */* mmHG Vent. Rate : 68 BPM Atrial Rate : 68 BPM P-R Int : 146 ms QRS Dur : 124 ms QT Int : 452 ms P-R-T Axes : 58 -40 71 degrees QTcB Int : 480 ms Normal sinus rhythm Possible Left atrial enlargement Left axis deviation Left bundle branch block Abnormal ECG Confirmed by Yunior Desai ([id number]), news video editor JUANITA FUENTES ([id number]) on 02/15/2025 8:16:52 AM Referred By: Confirmed By: Yunior Desai
--- NOTE | 2025-02-14 10:57 | EX.ED.DYSGE1 ---
HPI History of Present Illness Chief Complaint: Weakness Narrative Narrative: Chief complaint and HPI: 85-year-old female with past medical history of dementia, GERD, HTN, essential tremor presents from [facility] for evaluation of confusion, weakness, stool and urinary incontinence. History taken by EMS report and son in the room. Son states his mother was at her baseline yesterday in which they went on an outing. He states that the nursing facility repeated that in the evening she became weak in which she required mostly pushing in the wheelchair. They state today she appeared more confused than her baseline with urinary and stool incontinence. He states that the nursing facility did endorse a cough but son states patient has a mild cough at baseline that is chronic. Patient is alert and oriented to self only. Son states that patient's orientation waxes and wanes and that this is not abnormal for her. She denies any fever, chills, shortness of breath, chest pain, abdominal pain, nausea, vomiting, diarrhea, dysuria. Review of systems: See HPI Medications: As listed on the chart Allergies: As listed on the chart PFSH: Per chart Vital signs: As listed on the chart. Reviewed. Physical exam: Gen: A&O x1-mentation waxes and wanes at baseline per son, NAD Head: Normocephalic, atraumatic Eyes: No sclera icterus, conjunctiva clear, PERRL, EOMI ENT: Hearing aids removed -TMs clear BL, dry mucous membranes, posterior oropharynx unremarkable Neck: Trachea midline, No JVD, Full ROM, No meningismus CV: RRR, no murmurs, no peripheral edema Resp: Lungs CTA BL, no w/r/c GI: Abd soft, non-distended, non-tender, no r/r/g Musc: Moves all extremities, no deformity Skin: Warm, dry, no rash Neuro: Alert, grossly intact, sensation intact Psych: Cooperative [facility] Medical History Neuropathy Left bundle branch block Chronic pain Dementia Dementia Essential tremor Restless leg syndrome Wears hearing aid in both ears Anxiety Former smoker Hypertension Cognitive decline Chronic low back pain Fracture of left humerus History of ovarian cyst Hyperlipemia History of wrist fracture GERD (gastroesophageal reflux disease) Osteoporosis Acid reflux Anemia Home Medications ?Medication ?Instructions ?Recorded ?Last Taken ?Type sennosides 8.6 mg-docusate sodium 2 tab PO BID PRN PRN Constipation 04/23/23 Unknown Rx 50 mg tablet (Stool #0 tabs Softener-Stimulant Laxative) donepezil 10 mg tablet 10 mg PO QHS dementia #30 tabs 01/20/24 Unknown Rx memantine 10 mg tablet 10 mg PO BID #60 tabs 01/20/24 Unknown Rx acetaminophen 325 mg tablet 650 mg PO Q4H PRN PRN Fever, pain 07/19/24 Unknown History acetaminophen 500 mg tablet 1,000 mg PO Q8H PRN 07/19/24 Unknown History calcium carbonate 600 mg PO BID osteopsorosis 07/19/24 Unknown History ipratropium bromide 21 mcg (0.03 2 spray intranasal QDAY 07/19/24 Unknown History %) nasal spray propranolol 20 mg tablet 20 mg PO .COMPLEX tremors 07/19/24 Unknown History pramipexole 0.5 mg tablet 0.5 mg PO BID 10/05/24 Unknown History tramadol 50 mg tablet 50 mg PO QDAY PRN pain #20 tabs 10/31/24 Unknown Rx alendronate 70 mg tablet (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 12/07/24 Unknown History cholecalciferol (vitamin D3) 50 50 mcg PO QDAY vit d deficiency 12/07/24 Unknown History mcg (2,000 unit) capsule diclofenac sodium 1 % topical gel 4 g topical ONCE rt hip pain 12/07/24 Unknown History (Voltaren Arthritis Pain) lidocaine 4 % topical patch 1 patch topical QDAY PRN pain 12/07/24 Unknown History (Aspercreme (lidocaine)) methyl salicylate 15 %-menthol 10 1 applic topical BID PRN muscle 12/07/24 Unknown History % topical cream (Muscle Rub) pain tramadol 50 mg tablet 50 mg PO BID pain #60 tabs 01/17/25 Unknown Rx Allergy/AdvReac Type Severity Reaction Status Date / Time No Known Allergies Allergy Verified 12/07/24 09:25 Family History Grandmother Colon cancer Father Colon cancer Heart disease Brother Colon cancer Heart disease Mother Heart disease High cholesterol Surgical History History of orthopedic surgery History of hip surgery History of carpal tunnel surgery of left wrist Social History household members: none Smoking Status: Former smoker how long ago did patient quit smokin second hand exposure: No alcohol intake: never substance use type: does not use what type of physical activity do you participate in: other details: PT frequency: 1-2 times per week herrera/confucianism: Latter Day seatbelt use: always EXAM Physical Exam Const Vital Signs: 02/14/25 09:36 02/14/25 09:45 02/14/25 11:11 Temperature 98.8 F 98.8 F Temperature Source Axillary Axillary Pulse Rate 83 76 Respiratory Rate 22 H 18 Respiratory Effort Short of Breath Respiratory Pattern Tachypnea Blood Pressure 134/85 H 135/68 H Blood Pressure Mean 101 90 Pulse Ox 98 97 Oxygen Delivery Method Room Air Room Air 02/14/25 13:00 02/14/25 14:00 02/14/25 14:13 Temperature 98 F 97.9 F 97.8 F Temperature Source Temporal Temporal Pulse Rate 63 62 72 Respiratory Rate 18 18 18 Respiratory Effort Respiratory Pattern Blood Pressure 125/94 H 128/58 H 128/58 H Blood Pressure Mean 104 81 81 Pulse Ox 96 96 96 Oxygen Delivery Method Room Air Room Air 02/14/25 15:00 Temperature 98.9 F Temperature Source Oral Pulse Rate 89 Respiratory Rate 16 Respiratory Effort Respiratory Pattern Blood Pressure 118/78 Blood Pressure Mean 91 Pulse Ox 98 Oxygen Delivery Method Room Air MDM MDM MDM Narrative Medical decision making narrative: 85-year-old female with past medical history of dementia, GERD, HTN, essential tremor presents from [facility] for evaluation of confusion, weakness, stool and urinary incontinence. History taken by EMS report and son in the room. Son states his mother was at her baseline yesterday in which they went on an outing. He states that the nursing facility repeated that in the evening she became weak in which she required mostly pushing in the wheelchair. Son states that patient's orientation waxes and wanes and that this is not abnormal for her. Patient has no complaints. On presentation, patient no acute distress. Nontoxic-appearing. Afebrile. Differential diagnosis includes but is not limited to viral illness, gastroenteritis, UTI, electrolyte abnormality, pneumonia, suspect less likely ACS. NS bolus ordered. EKG reviewed see below. CBC without leukocytosis. Patient has baseline anemia of 11.5. Coagulation panel unremarkable. CMP unremarkable except for alkaline phosphatase at 150. No transaminitis or hyperbilirubinemia. Lactic acid unremarkable. Troponin 35 and 32. Patient not endorsing chest pain. No acute ischemic changes on EKG. Lipase unremarkable. UA negative for UTI but positive for mild ketones. Chest x-ray with chronic lung changes. This is similar to chest x-ray in May although slightly worse on the left. Could be possible pneumonia. No cardiomegaly, effusion, pneumothorax. Radiology in agreement. COVID, flu, RSV negative. Rocephin and azithromycin were ordered for community-acquired pneumonia. At this point in time I suspect patient has metabolic encephalopathy likely secondary to pneumonia. Patient will warrant admission. Family confirmed understand the plan. I spoke with the hospice service who accepted admission. EKG: Interpreted by me/EM physician: EKG shows normal sinus rhythm. No left bundle branch block. Heart rate 60. No acute ischemic change Impression: 1. Community-acquired pneumonia 2. Metabolic encephalopathy secondary to #1 3. Weakness secondary to #1 4. History of dementia Lab Data Labs: Laboratory Results - last 24 hr 02/14/25 02/14/25 02/14/25 11:04 11:06 12:52 WBC 10.0 RBC 4.04 L Hgb 11.5 L Hct 35.8 L MCV 88.6 MCH 28.5 MCHC 32.1 RDW Std Deviation 52.9 H RDW Coeff of Tiffanie 16.3 H Plt Count 328 MPV 8.5 Immature Gran % (Auto) 0.700 Neut % (Auto) 74.1 H Lymph % (Auto) 11.8 L Tift % (Auto) 12.2 H Eos % (Auto) 0.8 Baso % (Auto) 0.4 Absolute Neuts (auto) 7.4 Absolute Lymphs (auto) 1.18 Nucleated RBC % 0 PT 12.7 INR 0.9 APTT 29.6 Sodium 135 Potassium 3.7 Chloride 100 Carbon Dioxide 23.7 Anion Gap 12 BUN 18 Creatinine 0.94 Estim Creat Clear Calc 40.09 L Est GFR (MDRD) Non-Af 60 BUN/Creatinine Ratio 19.4 Glucose 92 Lactic Acid 1.3 Calcium 8.9 Total Bilirubin 0.56 AST 25 ALT 14 Alkaline Phosphatase 150 H Troponin T High Sens 35 H Troponin T Hi Sens 2 Hr Total Protein 6.9 Albumin 3.7 Globulin 3.1 Albumin/Globulin Ratio 1.2 Lipase 40 Urine Color Yellow Urine Clarity Clear Urine pH 6.0 Ur Specific [place] 1.015 Urine Protein Negative Urine Glucose (UA) Normal Urine Ketones 5 H Urine Occult Blood Negative Urine Nitrite Negative Urine Bilirubin Negative Urine Urobilinogen Normal Ur Leukocyte Esterase 25 H Urine RBC 0 SEEN Urine WBC 0-5 SEEN Ur Squamous Epith Cells 0 SEEN Urine Bacteria 0 SEEN Urine Mucus 0 SEEN 02/14/25 13:20 WBC RBC Hgb Hct MCV MCH MCHC RDW Std Deviation RDW Coeff of Tiffanie Plt Count MPV Immature Gran % (Auto) Neut % (Auto) Lymph % (Auto) Tift % (Auto) Eos % (Auto) Baso % (Auto) Absolute Neuts (auto) Absolute Lymphs (auto) Nucleated RBC % PT INR APTT Sodium Potassium Chloride Carbon Dioxide Anion Gap BUN Creatinine Estim Creat Clear Calc Est GFR (MDRD) Non-Af BUN/Creatinine Ratio Glucose Lactic Acid Calcium Total Bilirubin AST ALT Alkaline Phosphatase Troponin T High Sens Troponin T Hi Sens 2 Hr 32 H Total Protein Albumin Globulin Albumin/Globulin Ratio Lipase Urine Color Urine Clarity Urine pH Ur Specific [place] Urine Protein Urine Glucose (UA) Urine Ketones Urine Occult Blood Urine Nitrite Urine Bilirubin Urine Urobilinogen Ur Leukocyte Esterase Urine RBC Urine WBC Ur Squamous Epith Cells Urine Bacteria Urine Mucus Radiography Diagnostic Testing: Clinical Impression(s) from Imaging Studies Chest X-Ray 02/14/25 11:40 IMPRESSION: 1. Lingular atelectasis or pneumonia. 2. Suggestion of COPD. Reading Location: [facility] Discharge Plan Disposition Disposition: Acute Care Hospital [facility] Discharge Date/Time: 02/14/25 15:50
[2025-02-14 11:15] LABS: Hematocrit 35.8 % (37-47); Hemoglobin 11.5 g/dL (12.0-15.0); Immature Granulocytes Count 0.070 X10^3/uL (0.0-0.0); Mean Corp Hgb Conc 32.1 g/dL (32-36); Mean Corpuscular Volume 88.6 fL (81-99); Mean Platelet Vol. 8.5 fl (6.2-12.0); NRBC Flagged by Analyzer 0 % (0-5); Platelet Count 328 K/mm3 (150-450); RBC Distribution Width CV 16.3 % (11.6-14.6); RBC Distribution Width SD 52.9 fl (35.1-43.9); Red Blood Count 4.04 M/mm3 (4.2-5.4); White Blood Count 10.0 K/mm3 (4.4-11.0)
[2025-02-14 11:24] LABS: Prothrombin Time (Protime)PT. 12.7 SECONDS (11.7-14.9)
[2025-02-14 11:25] LABS: Partial Thromboplast Time 29.6 Seconds (24.1-36.2)
--- NOTE | 2025-02-14 11:30 | CM.ED ---
Social work Reason for referral: discharge planning Referral source: Era HANNAH SW entered patient's room, introducing self and role at [facility] to patient. Patient's son, Kwesi, was bedside. Kwesi stated belief that patient had another UTI and stated being surprised at how quickly things can change as patient had just been taken to [employer] yesterday on an outing from [facility]. Patient was sleeping during the majority of the conversation. Kwesi stated patient living at [facility] currently in the assisted living section, though Kwesi stated there may need to be some conversation of moving patient to the memory care unit there in the near future. Kwesi stated the SW there is helpful and Kwesi feels comfortable managing this conversation when necessary in the future. Kwesi denied further needs at this time. Sherri Pro, PLANT OPERATOR, BUSINESS PROFESSOR
--- NOTE | 2025-02-14 11:40 | RAD_ITS ---
EXAM: XR Chest, 1 View CLINICAL INDICATION: COUGH TECHNIQUE: Frontal view of the chest. COMPARISON: XR Chest dated 06/07/2024 FINDINGS: LUNGS AND PLEURAL SPACES: Lingular atelectasis or pneumonia. Hyperlucent lungs. Flattening of the diaphragm. No pneumothorax. HEART: Unremarkable. No cardiomegaly. MEDIASTINUM: Unremarkable. Normal mediastinal contour. BONES/JOINTS: Unremarkable. No acute fracture. RAD/Chest PA and Lateral IMPRESSION: 1. Lingular atelectasis or pneumonia. 2. Suggestion of COPD. Reading [facility]
[2025-02-14 12:05] LABS: AST(SGOT) 25 U/L (<=31); Alanine Aminotransfer ALT/SGPT 14 U/L (<=34); Albumin, Serum 3.7 g/dL (3.4-4.8); Alkaline Phosphatase 150 U/L (35-104); Anion Gap 12 (5-15); BUN 18 mg/dL (4-19); BUN/Creat Ratio 19.4 RATIO (10-20); Calcium,Total 8.9 mg/dL (7.6-11.0); Carbon Dioxide 23.7 mmol/L (21.0-32.0); Chloride 100 mmol/L (98-108); Estimated Creatinine Clearance 40.09 ml/min (50-250); Globulin 3.1 g/dL (2.2-4.2); Glucose 92 mg/dL (70-99); Lipase 40 U/L (13-75); Potassium 3.7 mmol/L (3.3-5.1)
[2025-02-14 12:07] LABS: Troponin T High Sensitivity 35 ng/L (<=14)
[2025-02-14] MEDS: 0.9% Normal Saline (1000mL) 1,000 ML 1000 ML IV (12:44)
[2025-02-14 12:59] LABS: Mucous, Urine 0 SEEN /hpf (<or=2+); Red Blood Cells-Urine 0 SEEN /hpf (0-5); Squamous Epithelial Cells - UA 0 SEEN /hpf (5-10)
[2025-02-14] MEDS: Azithromycin 500 MG in 0.9% Normal Saline (250mL Bag) 250 ML 250 MG IV (13:14)
[2025-02-14 13:31] LABS: Color, Urine Yellow (Yellow); Glucose, Dipstick Normal (Normal); Ketone-Dipstick 5 mg/dl (Negative); Leukocyte Esterase-Dipstick 25 /ul (Negative); Nitrite-Dipstick Negative (Negative); Protein-Dipstick Negative (Negative); Specific Gravity, Urine 1.015 (1.002-1.030); Urine Bilirubin Dipstick Negative (Negative)
[2025-02-14 13:36] LABS: Occult Blood-Urine Negative /ul (Negative)
[2025-02-14 14:23] LABS: Troponin T High Sens 2 HR 32 ng/L (<=14)
--- NOTE | 2025-02-14 15:11 | PCM.HP.STD ---
HPI - General General Date of Admission: 02/14/25 Date of Service: 02/14/25 Chief Complaint: Altered mental status, weakness HPI Narrative SAPNA GASCA, is a 85-year-old female history of GERD, dementia, essential tremor, restless leg syndrome who presented to [facility] ED 02/14/2025 from [facility] for confusion, weakness, stool and urinary incontinence. Patient poor historian so history per EMS report and son. Reportedly she was at her baseline yesterday when she went for an outing however since that evening she had increasing weakness and subsequently increased confusion with urinary and stool incontinence. Does have some chronic waxing waning of orientation but currently worse than baseline. In the ED temp 98.8, heart rate 83, blood pressure 134/85, respiratory rate 22 pulse ox 98% on room air. CBC with white count of 10, hemoglobin of 11.5, CMP with a BUN of 18 and a creatinine of 0.94, alk phos slightly elevated at 150, lipase normal, troponin 35, chest x-ray showed lingular atelectasis or pneumonia and findings suggestive of COPD. COVID/flu/RSV negative. UA not suggestive of infection. Patient evaluated bedside, she is confused and unable to answer any questions meaningfully, son reports yesterday she was in her usual health but today she is weak and more confused, does note that she has had increased cough on top of her chronic cough but has not been able to get much up. Unable to obtain any further history REPLACED BY [facility] Medical History (Updated 02/14/25 @ 15:[address] Liudmila Morin MD) Acid reflux Anemia Anxiety Chronic low back pain Chronic pain Cognitive decline Dementia Dementia Essential tremor Former smoker Fracture of left humerus GERD (gastroesophageal reflux disease) History of ovarian cyst History of wrist fracture Hyperlipemia Hypertension Left bundle branch block Neuropathy Osteoporosis Restless leg syndrome Wears hearing aid in both ears Home Medications ?Medication ?Instructions ?Recorded ?Last Taken ?Type sennosides 8.6 mg-docusate sodium 2 tab PO BID PRN PRN Constipation 04/23/23 Unknown Rx 50 mg tablet (Stool #0 tabs Softener-Stimulant Laxative) donepezil 10 mg tablet 10 mg PO QHS #30 tabs 01/20/24 Unknown Rx memantine 10 mg tablet 10 mg PO BID #60 tabs 01/20/24 Unknown Rx acetaminophen 325 mg tablet 650 mg PO Q4H PRN PRN Fever, pain 07/19/24 Unknown History -03/24 acetaminophen 500 mg tablet 1,000 mg PO Q8H PRN 07/19/24 Unknown History calcium carbonate 600 mg PO BID 07/19/24 Unknown History cholecalciferol (vitamin D3) 25 50 mcg PO DAILY 07/19/24 Unknown History mcg (1,000 unit) tablet (Vitamin D3) ipratropium bromide 21 mcg (0.03 2 spray intranasal QDAY 07/19/24 Unknown History %) nasal spray nut tx, lact-reduced, iron 0.09 120 ml PO TID 07/19/24 Unknown History gram-2.25 kcal/mL oral liquid (Boost [facility]) propranolol 20 mg tablet 20 mg PO .COMPLEX 07/19/24 Unknown History alendronate 70 mg tablet mg PO 10/05/24 Unknown History pramipexole 0.5 mg tablet 0.5 mg PO BID 10/05/24 Unknown History tramadol 50 mg tablet 50 mg PO QDAY PRN pain #20 tabs 10/31/24 Unknown Rx alendronate 70 mg tablet (Fosamax) 70 mg PO QWEEK 12/07/24 Unknown History cholecalciferol (vitamin D3) 50 50 mcg PO QDAY 12/07/24 Unknown History mcg (2,000 unit) capsule diclofenac sodium 1 % topical gel 4 g topical ONCE 12/07/24 Unknown History (Voltaren Arthritis Pain) lidocaine 4 % topical patch 1 patch topical QDAY PRN 12/07/24 Unknown History (Aspercreme (lidocaine)) methyl salicylate 15 %-menthol 10 1 applic topical BID PRN 12/07/24 Unknown History % topical cream (Muscle Rub) tramadol 50 mg tablet 50 mg PO BID #60 tabs 01/17/25 Unknown Rx Allergy/AdvReac Type Severity Reaction Status Date / Time No Known Allergies Allergy Verified 12/07/24 09:25 Family History Grandmother Colon cancer Father Colon cancer Heart disease Brother Colon cancer Heart disease Mother Heart disease High cholesterol Surgical History History of carpal tunnel surgery of left wrist History of hip surgery History of orthopedic surgery Social History household members: none Smoking Status: Former smoker how long ago did patient quit smokin second hand exposure: No alcohol intake: never substance use type: does not use what type of physical activity do you participate in: other details: PT frequency: 1-2 times per week herrera/mandaeism: Mosque seatbelt use: always ROS ROS Narrative Unable to obtain ROS secondary to mental status Vital Signs Vital Signs Vital Signs: 02/14/25 09:36 02/14/25 09:45 02/14/25 11:11 Temperature 98.8 F 98.8 F Temperature Source Axillary Axillary Pulse Rate 83 76 Respiratory Rate 22 H 18 Respiratory Effort Short of Breath Respiratory Pattern Tachypnea Blood Pressure 134/85 H 135/68 H Blood Pressure Mean 101 90 Pulse Ox 98 97 Oxygen Delivery Method Room Air Room Air 02/14/25 13:00 02/14/25 14:00 02/14/25 14:13 Temperature 98 F 97.9 F 97.8 F Temperature Source Temporal Temporal Pulse Rate 63 62 72 Respiratory Rate 18 18 18 Respiratory Effort Respiratory Pattern Blood Pressure 125/94 H 128/58 H 128/58 H Blood Pressure Mean 104 81 81 Pulse Ox 96 96 96 Oxygen Delivery Method Room Air Room Air Weight Weight: 58.2 kg Body Mass Index (BMI) 21.3 Physical Exam Narrative General: Patient confused and agitated HEENT: Atraumatic, normocephalic Eyes: Anicteric, normal conjunctiva, extraocular movements grossly intact Neck: Supple Respiratory: Slightly tachypneic, would not take a deep breath for auscultation Cardiovascular: Regular rate and rhythm GI: Soft, nontender, nondistended Extremities: No edema Musculoskeletal: Moving all extremities Neuro: No overt focal neurological deficits though patient not able to participate in meaningful neurologic exam Skin: No rashes appreciated Psych: Uncooperative, agitated Results Lab / Micro Data 02/14/25 11:04 02/14/25 11:04 Labs: Laboratory Results - last 24 hr 02/14/25 11:04: WBC 10.0, RBC 4.04 L, Hgb 11.5 L, Hct 35.8 L, MCV 88.6, MCH 28.5, MCHC 32.1, RDW Std Deviation 52.9 H, RDW Coeff of Tiffanie 16.3 H, Plt Count 328, MPV 8.5, Immature Gran % (Auto) 0.700, Neut % (Auto) 74.1 H, Lymph % (Auto) 11.8 L, [place] % (Auto) 12.2 H, Eos % (Auto) 0.8, Baso % (Auto) 0.4, Absolute Neuts (auto) 7.4, Absolute Lymphs (auto) 1.18, Nucleated RBC % 0, PT 12.7, INR 0.9, APTT 29.6, Sodium 135, Potassium 3.7, Chloride 100, Carbon Dioxide 23.7, Anion Gap 12, BUN 18, Creatinine 0.94, Estim Creat Clear Calc 40.09 L, Est GFR (MDRD) Non-Af 60, BUN/Creatinine Ratio 19.4, Glucose 92, Calcium 8.9, Total Bilirubin 0.56, AST 25, ALT 14, Alkaline Phosphatase 150 H, Troponin T High Sens 35 H, Total Protein 6.9, Albumin 3.7, Globulin 3.1, Albumin/Globulin Ratio 1.2, Lipase 40 02/14/25 11:06: Lactic Acid 1.3 02/14/25 12:52: Urine Color Yellow, Urine Clarity Clear, Urine pH 6.0, Ur Specific [place] 1.015, Urine Protein Negative, Urine Glucose (UA) Normal, Urine Ketones 5 H, Urine Occult Blood Negative, Urine Nitrite Negative, Urine Bilirubin Negative, Urine Urobilinogen Normal, Ur Leukocyte Esterase 25 H, Urine RBC 0 SEEN, Urine WBC 0-5 SEEN, Ur Squamous Epith Cells 0 SEEN, Urine Bacteria 0 SEEN, Urine Mucus 0 SEEN 02/14/25 13:20: Troponin T Hi Sens 2 Hr 32 H Micro: Microbiology 02/14/25 11:39 Mucosa - Nose SARS-CoV-2, Influenza & RSV (PCR) - Final Imaging Radiology Impression Chest X-Ray 02/14/25 11:40 IMPRESSION: 1. Lingular atelectasis or pneumonia. 2. Suggestion of COPD. Reading Location: [facility] Assessment & Plan Assessment/Plan (1) Community acquired pneumonia: PLAN: Plan #Community-acquired pneumonia -Imaging: Chest x-ray suggestive of pneumonia -DuoNebs and as needed albuterol -Sputum culture, COVID ordered, respiratory panel ordered -Urine antigens -Mucinex, I/S -Rocephin and azithromycin # Acute metabolic encephalopathy - Patient more weak and confused, suspect this is secondary to underlying pneumonia - Family reports she is already more awake with some fluids and antibiotics however still confused and agitated - Did schedule melatonin and Risperdal twice daily to help with patient's agitation, I do not suspect she will need this on discharge once underlying medical etiology improved #Dementia -Supportive care -Continue home medications # Restless leg syndrome -continue patient's home medication regimen #GERD - Does not appear patient currently on PPI - Tums as needed #DVT ppx: SCDs Liudmila Morin MD Charges/Coding Visit Charges Inpatient E&M: 07276 Init Hosp L2
[2025-02-14] MEDS: 0.9% Normal Saline (1000mL) 1,000 ML 100 ML IV (16:51)
--- NOTE | 2025-02-14 22:01 | PCM.PN.BLA ---
Progress Note Notified by nursing that pt pulled out her IV access. She is yelling out and is confused and suspicious of staff trying to medicate her. Per family, she has needed medication for behaviors on previous admissions. Advised nursing to crush Risperdal and Tramadol and to administer in ice cream or pudding. If this is unsuccessful, order placed for haloperidol 2mg IM x1.
[2025-02-14] MEDS: MELATONIN 10 MG TABLET PO (22:03)
[2025-02-14] MEDS: Memantine Hydrochloride 10 MG Tablet PO (22:17)
--- NOTE | 2025-02-15 00:26 | CPS ---
Patient remains combative and is refusing the nasal swab at this time. The ordering physician was notified during the day that the patient had refused the swab at that time. Physician wanted RT to try again later and it was refused by the patient again. RN aware.
[2025-02-15 04:30] VITALS: BP 122/78; PULSE 83; RESP 18; TEMP 36.8; O2SAT 97
--- NOTE | 2025-02-15 04:30 | NURSING ---
Patient increasingly agitated and combative. Trying to throw and hit staff members
--- NOTE | 2025-02-15 04:30 | NURSING ---
Patient increasingly agitated and resistive to care. Began to throw things, trying to hit staff members and yelling out. IM haldol given.
[2025-02-15] MEDS: Memantine Hydrochloride 10 MG Tablet PO ×2 (10:02→22:27)
[2025-02-15 10:07] VITALS: BP 113/49; PULSE 74; RESP 16; TEMP 36.5; O2SAT 94
[2025-02-15] MEDS: Ceftriaxone 2 GM in 0.9% Normal Saline (50mL MB+) 50 ML IV (10:15)
[2025-02-15 10:39] LABS: Hematocrit 36.3 % (37-47); Hemoglobin 11.5 g/dL (12.0-15.0); Immature Granulocytes Count 0.040 X10^3/uL (0.0-0.0); Mean Corp Hgb Conc 31.7 g/dL (32-36); Mean Corpuscular Volume 89.0 fL (81-99); Mean Platelet Vol. 8.6 fl (6.2-12.0); NRBC Flagged by Analyzer 0 % (0-5); Platelet Count 279 K/mm3 (150-450); RBC Distribution Width CV 16.4 % (11.6-14.6); RBC Distribution Width SD 53.1 fl (35.1-43.9); Red Blood Count 4.08 M/mm3 (4.2-5.4); White Blood Count 7.8 K/mm3 (4.4-11.0)
[2025-02-15] MEDS: Azithromycin 500 MG in 0.9% Normal Saline (250mL Bag) 250 ML 255 MG IV (11:05)
--- NOTE | 2025-02-15 11:21 | CASEMGMT ---
Discharge Planning Updates sent to [facility] with note asking copy of HC POA and if they have any concerns with pt returning to [place]. Awaiting response. Thalia Robles DC Planning Asst.
[2025-02-15 11:26] LABS: Anion Gap 13 (5-15); BUN 17 mg/dL (4-19); BUN/Creat Ratio 17.5 RATIO (10-20); Calcium,Total 8.9 mg/dL (7.6-11.0); Carbon Dioxide 21.1 mmol/L (21.0-32.0); Chloride 103 mmol/L (98-108); Estimated Creatinine Clearance 38.76 ml/min (50-250); Glucose 82 mg/dL (70-99); Potassium 3.6 mmol/L (3.3-5.1)
--- NOTE | 2025-02-15 13:38 | CASEMGMT ---
SW Assessment: SW called pt son and contact, Kwesi, to complete assessment, as pt is 0 x 1 and unable to complete at this time. SW introduced self and role at [facility], pt son voices understanding and consents to assessment. Care providers, pharmacy, and demographics verified/updated. Admitting Dx: Pneumonia, metabolic encephalopathy PCP: Dr Martin Specialists:Dr White- pain management; Dr Cook- neurology; Dr Palm- pulmonology; Dr Yanez- clinical sales consultant; Dr Desai- cardiology Preferred Pharmacy: [facility] Insurance:[employer] Prescription Benefit: yes LNOK: Kwesi- primary contact and HCPOA, also has son Gopi ([phone]) for a local contact Living Arrangements: Pt lives at [facility]. Plans are to return if able. Transportation: Pt utilizes [facility] and son also transports. DME: [facility] HHC/SNF: [facility], [facility] previous SNF. Plan: return to [place] if able. Pt son reports there have been discussions regarding transition to memory care in the future. SW remains available to follow for d/c planning needs. ZENOBIA Zarate
--- NOTE | 2025-02-15 17:30 | PCM.PROGNOTE ---
Subjective Subjective Patient seen and examined. She was lethargic and not really answering questions. Unable to do review of the systems. I saw her with her nurse by her bedside. Review of symptoms otherwise negative. She has remained hemodynamically stable. Objective Data Objective Data Vital Signs: Vital Signs Temp Pulse Resp BP Pulse Ox O2 Del Method 97.7 F L 74 16 113/49 L 94 Room Air 02/15/25 10:07 02/15/25 10:07 02/15/25 10:07 02/15/25 10:07 02/15/25 10:07 02/15/25 10:46 Oxygen Delivery Method Room Air Weight: 121 lb 7.948 oz Body Mass Index (BMI) 20.2 Intake & Output: Intake and Output for Last 24 Hours 02/13/25 02/14/25 02/15/25 23:59 23:59 23:59 Intake Total 1800 / 1800 305 / 305 Output Total 0 / 0 Balance 1800 / 1800 305 / 305 Lab / Micro Data 02/15/25 10:27 02/15/25 10:27 Labs: Laboratory Results - last 24 hr 02/15/25 10:27: WBC 7.8, RBC 4.08 L, Hgb 11.5 L, Hct 36.3 L, MCV 89.0, MCH 28.2, MCHC 31.7 L, RDW Std Deviation 53.1 H, RDW Coeff of Tiffanie 16.4 H, Plt Count 279, MPV 8.6, Immature Gran % (Auto) 0.500, Neut % (Auto) 63.9, Lymph % (Auto) 16.8 L, [place] % (Auto) 16.6 H, Eos % (Auto) 1.8, Baso % (Auto) 0.4, Absolute Neuts (auto) 5.0, Absolute Lymphs (auto) 1.30, Nucleated RBC % 0, Sodium 137, Potassium 3.6, Chloride 103, Carbon Dioxide 21.1, Anion Gap 13, BUN 17, Creatinine 0.94, Estim Creat Clear Calc 38.76 L, Est GFR (MDRD) Non-Af 60, BUN/Creatinine Ratio 17.5, Glucose 82, Calcium 8.9 Micro: Microbiology 02/14/25 12:52 Urine, Clean Catch Legionella Antigen - Final 02/14/25 12:52 Urine, Clean Catch Streptococcus pneumoniae Antigen (M - Final 02/14/25 11:39 Mucosa - Nose SARS-CoV-2, Influenza & RSV (PCR) - Final Physical Exam Const Orientation / Consciousness: confused and lethargic HEENT normocephalic, head/scalp atraumatic, moist oral mucous membranes and oropharynx normal Eyes EOMs intact bilaterally Neck supple and no JVD Lymph Lymphatic: no lymphedema noted Resp normal respiratory effort, normal air movement and clear to auscultation bilaterally Cardio regular rate, regular rhythm, S1 normal heart sound, S2 normal heart sound and no murmurs GI normal to inspection, nondistended, normoactive bowel sounds, soft to palpation, non-tender and non-distended Extremity normal capillary refill, no clubbing, cyanosis or edema and no calf tenderness General Extremity: no tenderness to palpation of joints or extremities Skin General Skin Exam: no breakdown Neuro Neuro Narrative: confused, moves all extremities, lethargic Motor Exam: general weakness Assessment & Plan Assessment/Plan (1) Community acquired pneumonia: PLAN: Plan #Acute metabolic encephalopathy Etiology is unclear. Patient still feels quite weak and was lethargic. Chest x-ray was suggestive of pneumonia Urine for strep and Legionella negative. On IV ceftriaxone and azithromycin. On room air. Titrate oxygen to maintain saturation above 90%. #Dementia: continue supportive care.ON memantine and risperdal. #Restless leg syndrome: On pramipexole #GERD: On PPI DVT prophylaxis: SCDs Charges/Coding Visit Charges Inpatient E&M: 60908 Subs Hosp L2
[2025-02-15 18:00] VITALS: BP 126/70; PULSE 69; RESP 16; TEMP 37.1; O2SAT 98
[2025-02-15 18:26] VITALS: BP 126/70; PULSE 69; RESP 16; TEMP 37.1; O2SAT 98
[2025-02-15 22:13] VITALS: BP 129/72; PULSE 65; RESP 16; TEMP 36.6; O2SAT 95
[2025-02-15] MEDS: MELATONIN 10 MG TABLET PO (22:27)
[2025-02-15] MEDS: 0.9% Saline Lock 10 ML Syringe IV (22:27)
[2025-02-16] VITALS (8 sets, daily range): BP systolic 130–149; BP diastolic 72–84; PULSE 63–84; RESP 16; TEMP 36.6–37.1; O2SAT 94–99
[2025-02-16 05:57] LABS: Hematocrit 38.3 % (37-47); Hemoglobin 12.0 g/dL (12.0-15.0); Immature Granulocytes Count 0.050 X10^3/uL (0.0-0.0); Mean Corp Hgb Conc 31.3 g/dL (32-36); Mean Corpuscular Volume 89.7 fL (81-99); Mean Platelet Vol. 8.9 fl (6.2-12.0); NRBC Flagged by Analyzer 0 % (0-5); Platelet Count 328 K/mm3 (150-450); RBC Distribution Width CV 16.4 % (11.6-14.6); RBC Distribution Width SD 53.4 fl (35.1-43.9); Red Blood Count 4.27 M/mm3 (4.2-5.4); White Blood Count 7.8 K/mm3 (4.4-11.0)
[2025-02-16 06:20] LABS: Anion Gap 13 (5-15); BUN 21 mg/dL (4-19); BUN/Creat Ratio 23.8 RATIO (10-20); Calcium,Total 9.4 mg/dL (7.6-11.0); Carbon Dioxide 22.7 mmol/L (21.0-32.0); Chloride 104 mmol/L (98-108); Estimated Creatinine Clearance 41.40 ml/min (50-250); Glucose 134 mg/dL (70-99); Potassium 3.7 mmol/L (3.3-5.1)
--- NOTE | 2025-02-16 08:06 | CASEMGMT ---
Advanced Directives [facility] only has Living Will on file. SW updated. Thalia Robles DC Planning Asst.
[2025-02-16] MEDS: 0.9% Saline Lock 10 ML Syringe IV ×2 (09:12→11:01)
[2025-02-16] MEDS: Azithromycin 500 MG in 0.9% Normal Saline (250mL Bag) 250 ML 255 MG IV (09:12)
[2025-02-16] MEDS: Memantine Hydrochloride 10 MG Tablet PO ×2 (09:54→21:23)
[2025-02-16] MEDS: Ceftriaxone 2 GM in 0.9% Normal Saline (50mL MB+) 50 ML IV (10:25)
--- NOTE | 2025-02-16 13:21 | CASEMGMT ---
Social Work- SW attempted to call son for updates. SW left voicemail requesting return call. TEGAN remains available to follow. ZENOBIA Zarate
--- NOTE | 2025-02-16 13:24 | PN_ITS ---
Subjective Subjective Patient seen and examined with n. She was much more alert and communicative today and had no active complaints. SHe is hard of hearing but denied being in pain, having any fever, chills, cough, chest pain, palpitations, dizziness, nausea, vomiting or any other symptoms. Review of systems is otherwise negative. She has remained hemodynamically stable. Objective Data Objective Data Vital Signs: Vital Signs Temp Pulse Resp BP Pulse Ox O2 Del Method 97.8 F 63 16 130/76 H 96 Room Air 02/16/25 07:20 02/16/25 07:20 02/16/25 07:20 02/16/25 07:20 02/16/25 07:20 02/16/25 07:20 Oxygen Delivery Method Room Air Weight: 121 lb 7.948 oz Body Mass Index (BMI) 20.2 Intake & Output: Intake and Output for Last 24 Hours 02/14/25 02/15/25 02/16/25 23:59 23:59 23:59 Intake Total 1800 / 1800 1025 / 1025 805 / 805 Output Total 0 / 0 Balance 1800 / 1800 1025 / 1025 805 / 805 Lab / Micro Data 02/16/25 05:25 02/16/25 05:25 Labs: Laboratory Results - last 24 hr 02/16/25 05:25: WBC 7.8, RBC 4.27, Hgb 12.0, Hct 38.3, MCV 89.7, MCH 28.1, MCHC 31.3 L, RDW Std Deviation 53.4 H, RDW Coeff of Tiffanie 16.4 H, Plt Count 328, MPV 8.9, Immature Gran % (Auto) 0.600, Neut % (Auto) 67.8, Lymph % (Auto) 14.9 L, M jairo % (Auto) 14.1 H, Eos % (Auto) 2.3, Baso % (Auto) 0.3, Absolute Neuts (auto) 5.3, Absolute Lymphs (auto) 1.16, Nucleated RBC % 0, Sodium 139, Potassium 3.7, Chloride 104, Carbon Dioxide 22.7, Anion Gap 13, BUN 21 H, Creatinine 0.88, E stim Creat Clear Calc 41.40 L, Est GFR (MDRD) Non-Af 65, BUN/Creatinine Ratio 23.8 H, Glucose 134 H, Calcium 9.4 Micro: Microbiology 02/14/25 12:52 Urine, Clean Catch Legionella Antigen - Final 02/14/25 12:52 Urine, Clean Catch Streptococcus pneumoniae Antigen (M - Final 02/14/25 11:39 Mucosa - Nose SARS-CoV-2, Influenza & RSV (PCR) - Final Physical Exam Const alert and no apparent distress Constitutional Narrative: communicative, more alert and communicative today. HEENT normocephalic, head/scalp atraumatic, moist oral mucous membranes and oropharynx normal Eyes EOMs intact bilaterally Neck supple and no JVD Lymph Lymphatic: no lymphedema noted Resp normal respiratory effort, normal air movement and clear to auscultation bilaterally Cardio regular rate, regular rhythm, S1 normal heart sound, S2 normal heart sound and no murmurs GI normal to inspection, nondistended, normoactive bowel sounds, soft to palpation, non-tender and non-distended Extremity normal capillary refill, no clubbing, cyanosis or edema and no calf tenderness General Extremity: no tenderness to palpation of joints or extremities Skin General Skin Exam: no breakdown Neuro CN's II-XII intact bilaterally and no focal motor deficits Motor Exam: general weakness Psych thought process normal, cooperative and affect normal Appearance: appropriate Assessment & Plan Assessment/Plan (1) Community acquired pneumonia: PLAN: Plan #Acute metabolic encephalopathy * Etiology is unclear. Now more alert and communicative. Chest x-ray was suggestive of pneumonia * Urine for strep and Legionella negative. On IV ceftriaxone and azithromycin. * On room air. Titrate oxygen to maintain saturation above 90%. * #Dementia: continue supportive care.ON memantine and risperdal. #Restless leg syndrome: On pramipexole #GERD: On PPI DVT prophylaxis: SCDs Disposition: PT/OT evaluated her and does not think she needs SNF, and she is ok to go back to Assisted Living. For likely DC tomorrow Charges/Coding Visit Charges Inpatient E&M: 82397 Subs Hosp L2
--- NOTE | 2025-02-16 13:37 | CASEMGMT ---
Addendum entered by Mackenzie Wilburn 02/16/25 14:43: SW collaborated with therapy who indicate pt did well; no additional therapy recommended at this time. SW relayed this to pt son and again provided education on transitional care for skilled services vs memory care for cognitive concerns. Pt son reports that he feels comfortable with return to AL and will plan to transport at discharge. SW remains available to follow. ZENOBIA Zarate Original Note: Social Work- SW received a return call from son, Kwesi. Kwesi reports that a nurse spoke with him this morning regarding transitional care. SW provided education on skillable stays vs memory care or terminal block assembler care due to cognition. Pt son would like therapy to eval pt to verify that pt can return to AL. Pt son reports that he is amenable to either AL or skilled stay;whatever she needs. SW contacted therapy and collaborated with bedside nurse. SW remains available to follow and update son. ZENOBIA Zarate
[2025-02-16] MEDS: MELATONIN 10 MG TABLET PO (21:28)
[2025-02-17 02:00] VITALS: BP 134/80; PULSE 72; RESP 16; TEMP 36.9; O2SAT 95
--- NOTE | 2025-02-17 03:03 | PCM.HOSP.N ---
Hospitalist Note Patient with notable agitation, aggressive behavior, will trial IM haldol x 1.
[2025-02-17 07:40] VITALS: BP 142/81; PULSE 70; RESP 17; TEMP 36.6; O2SAT 99
[2025-02-17] MEDS: Memantine Hydrochloride 10 MG Tablet PO (08:19)
--- NOTE | 2025-02-17 09:10 | CASEMGMT ---
Addendum entered by Mackenzie Wilburn 02/17/25 12:00: TEGAN received notice that [facility] does not have memory care availability in AL or SNF. SW called pt son Kwesi to update. Kwesi reports that he does not want to move facilities, as [facility] has been good to her. SW updated that facility may ask pt family to provide extra support if needed. Pt son reports that he spoke with [facility] this morning and they indicated the same information to him in that conversation. SW reiterated that pt has the potential to d/c over the weekend. Pt son agreeable. ZENOBIA Zarate Original Note: Social Work- SW called pt son, Kwesi, to provide updates. SW updated that pt has a sitter and received Haldol due to increase agitation overnight. SW discussed higher level of care options, as pt son states that he previously spoke with [facility] regarding memory care. Pt son reports that he would like to pursue memory care at this time. [facility] notified of preference. Bedside nurse and hospitalist updated. TEGAN remains available to follow. ZENOBIA Zarate
--- NOTE | 2025-02-17 09:55 | CASEMGMT ---
Addendum entered by Thalia Robles 02/17/25 12:08: Per [facility], they will not have an AL memory care bed until next week and only male availability on snf memory care unit. SW updated. [facility] notified that pt will likely return over he weekend. Green Sheet completed and given to SW. Thalia Robles DC Planning Asst. Original Note: Discharge Planning Updates sent to [facility] with note asking if they have memory care bed availability. Awaiting response. Thalia Robles DC Planning Asst.
--- NOTE | 2025-02-17 10:48 | PN_ITS ---
Subjective Subjective Patient seen and examined with her nurse by her bedside. She was more confused this morning. SHe was also agitated over night and had to be given IM haldol. Unable to do comprehensive review of systems due to her confusion. She has remained hemodynamically stable. Objective Data Objective Data Vital Signs: Vital Signs Temp Pulse Resp BP Pulse Ox O2 Del Method 97.8 F 70 17 142/81 H 99 Room Air 02/17/25 07:40 02/17/25 07:40 02/17/25 07:40 02/17/25 07:40 02/17/25 07:40 02/17/25 07:40 Oxygen Delivery Method Room Air Weight: 121 lb 7.948 oz Body Mass Index (BMI) 20.2 Intake & Output: Intake and Output for Last 24 Hours 02/15/25 02/16/25 02/17/25 23:59 23:59 23:59 Intake Total 1025 / 1025 1305 / 1305 Balance 1025 / 1025 1305 / 1305 Lab / Micro Data 02/16/25 05:25 02/16/25 05:25 Micro: Microbiology 02/14/25 12:52 Urine, Clean Catch Legionella Antigen - Final 02/14/25 12:52 Urine, Clean Catch Streptococcus pneumoniae Antigen (M - Final 02/14/25 11:39 Mucosa - Nose SARS-CoV-2, Influenza & RSV (PCR) - Final Physical Exam Const alert Constitutional Narrative: confused, intermittent agitation. Orientation / Consciousness: confused HEENT normocephalic, head/scalp atraumatic, moist oral mucous membranes and oropharynx normal Eyes EOMs intact bilaterally Neck supple and no JVD Lymph Lymphatic: no lymphedema noted Resp normal respiratory effort, normal air movement and clear to auscultation bilaterally Cardio regular rate, regular rhythm, S1 normal heart sound, S2 normal heart sound and no murmurs GI normal to inspection, nondistended, normoactive bowel sounds and soft to palpation Extremity normal capillary refill, no clubbing, cyanosis or edema and no calf tenderness General Extremity: no tenderness to palpation of joints or extremities Skin General Skin Exam: no breakdown Neuro CN's II-XII intact bilaterally and no focal motor deficits Neuro Narrative: confused, moves all extremities Motor Exam: general weakness Psych thought process normal, cooperative and affect normal Appearance: appropriate Assessment & Plan Assessment/Plan (1) Community acquired pneumonia: PLAN: Plan #Acute metabolic encephalopathy * had intermittent agitation again overnight. This is likely due to behavioral disturbance in the setting of dementia. Chest x-ray was suggestive of pneumonia * Urine for strep and Legionella negative. On IV ceftriaxone and azithromycin. * On room air. Titrate oxygen to maintain saturation above 90%. * Will switch antibiotics to PO levofloxacin for a 5 day course. * o risperdal for dementia. Dose increased to 1mg bid. IM haldol prn added on for agitation. * #Dementia: continue supportive care.ON memantine and risperdal. Risperdal increased to 1mg bid. #Restless leg syndrome: On pramipexole #GERD: On PPI DVT prophylaxis: SCDs Disposition: * cannot go back to Assisted Living in her current state. * Per case management, her son is now agreeable to memory care placement. * Case management on board to help facilitate this. Charges/Coding Visit Charges Inpatient E&M: 73398 Subs Hosp L2
[2025-02-17] MEDS: 0.9% Saline Lock 10 ML Syringe IV ×2 (10:50→12:29)
--- NOTE | 2025-02-17 10:56 | NURSING ---
combatative at staff, hitting with fist at staff.
--- NOTE | 2025-02-17 12:05 | NURSING ---
INTO PATIENTS ROOM PATIENT THROWING WATER AT FEED ELEVATOR WORKER SITTING WITH HER. ATTEMPTED TO DESCULATION. PT CONTINUES TO BE CONFUSED AND AGITATING. TELLING STAFF TO GET OUT OF HER HOUSE. WATER PITCHER REMOVED FROM PATIENTS REACH. PT CONTINUED HITTING AND KICKING AT STAFF AT STAFF. PT UNSTEADY NOT STAYING IN THE BED AND STATES SHE'S LEAVING. PT ASSISTED IN TO IGNACIO CHAIR AND PRIMARY RN CALLED TO THE ROOM. DISCUSSED TALKING WITH DR. SHARPE. DISCUSS PRIMARY RN TALKING TO SON TO HAVE ANOTHER FAMILY MEMBER COME IN, PER SPEECH AND LANGUAGE TUTOR SON WAS TO COME IN AFTER WORK. SECURITY CALLED REQUESTED BY PRIMARY RN PATIENT DEMANDING TO TALK WITH THE POLICE.
--- NOTE | 2025-02-17 12:09 | NURSING ---
pt combatative, hitting staff, yelling at staff, throwing stuff at staff. Text to Md. Pt states my hip hurts. pt states she would like to talk to police- Joselin HANNAHcharge coordinator nurse notified security to come up to see pt at her request.
--- NOTE | 2025-02-17 12:27 | NURSING ---
HRO at bedside talking with pt. pt agrees to take something for pain and took one bite of pasta for lunch. declines further nutrition.
--- NOTE | 2025-02-17 13:23 | CASEMGMT ---
Social Work- Discharge back to [facility]. ?In case of possible weekend discharge, green sheet on chart for nursing to follow for final discharge arrangements/notifications to SNF, patient/family.? ZENOBIA Zarate
[2025-02-17 14:52] VITALS: BP 108/54; PULSE 72; RESP 16; TEMP 36.7; O2SAT 94
[2025-02-17 15:32] LABS: Hematocrit 35.4 % (37-47); Hemoglobin 11.3 g/dL (12.0-15.0); Immature Granulocytes Count 0.040 X10^3/uL (0.0-0.0); Mean Corp Hgb Conc 31.9 g/dL (32-36); Mean Corpuscular Volume 88.7 fL (81-99); Mean Platelet Vol. 9.1 fl (6.2-12.0); NRBC Flagged by Analyzer 0 % (0-5); Platelet Count 316 K/mm3 (150-450); RBC Distribution Width CV 15.9 % (11.6-14.6); RBC Distribution Width SD 52.5 fl (35.1-43.9); Red Blood Count 3.99 M/mm3 (4.2-5.4); White Blood Count 7.4 K/mm3 (4.4-11.0)
[2025-02-17 16:02] LABS: Anion Gap 11 (5-15); BUN 16 mg/dL (4-19); BUN/Creat Ratio 23.8 RATIO (10-20); Calcium,Total 9.1 mg/dL (7.6-11.0); Carbon Dioxide 21.0 mmol/L (21.0-32.0); Chloride 108 mmol/L (98-108); Estimated Creatinine Clearance 45.54 ml/min (50-250); Glucose 112 mg/dL (70-99); Potassium 3.7 mmol/L (3.3-5.1)
--- NOTE | 2025-02-17 20:54 | NURSING ---
pt sleeping at this time, had been very restless, son in the room at the bedside and did not want her touched/assessed at this time.
[2025-02-17 22:00] VITALS: RESP 16
[2025-02-18 02:00] VITALS: RESP 15
[2025-02-18 03:55] VITALS: BP 145/88; PULSE 94; RESP 16; TEMP 36.4; O2SAT 95
[2025-02-18 10:19] VITALS: BP 113/71; PULSE 67; RESP 16; TEMP 36.6; O2SAT 98
[2025-02-18] MEDS: Memantine Hydrochloride 10 MG Tablet PO ×2 (10:26→21:03)
--- NOTE | 2025-02-18 10:50 | CASEMGMT ---
Social Work As per physician, pt may be ready for d/c today, however she is concerned about pt returning to the AL due to her memory issues. As per the [facility] SW, the son plans to help support pt when she returns to the AL. Physician asked SW to check w/son. SW spoke w/son Kwesi, he is in agreement to help support and stay w/pt at [facility] as needed. We explored other options, pt's son wants pt to return to the AL as she is familiar with the facility, he does not want to make a change. He is aware that pt may need to be moved to memory care when able. Son would prefer to transport pt himself. However, pt has a sitter at present. Pt should not be d/c to AL when there is a sitter present. SW reached out to physician, let her know pt has a sitter, and pt should be 24 hour both sitter and Haldol free before returning to the AL. She is okay w/discontinuing the sitter and if pt manages well will d/c the pt back to AL on Thursday. SW also let pt's son know that pt will not return today, will likely return tomorrow as long as she can remain sitter and Haldol free. Green sheet updated, plan is for pt to return to [facility] tomorrow. ELIUD Jay
[2025-02-18 11:49] LABS: Hematocrit 37.0 % (37-47); Hemoglobin 11.7 g/dL (12.0-15.0); Immature Granulocytes Count 0.050 X10^3/uL (0.0-0.0); Mean Corp Hgb Conc 31.6 g/dL (32-36); Mean Corpuscular Volume 89.2 fL (81-99); Mean Platelet Vol. 8.7 fl (6.2-12.0); NRBC Flagged by Analyzer 0 % (0-5); Platelet Count 338 K/mm3 (150-450); RBC Distribution Width CV 15.9 % (11.6-14.6); RBC Distribution Width SD 52.6 fl (35.1-43.9); Red Blood Count 4.15 M/mm3 (4.2-5.4); White Blood Count 7.7 K/mm3 (4.4-11.0)
[2025-02-18 11:59] LABS: Anion Gap 13 (5-15); BUN 18 mg/dL (4-19); BUN/Creat Ratio 23.6 RATIO (10-20); Calcium,Total 9.0 mg/dL (7.6-11.0); Carbon Dioxide 19.1 mmol/L (21.0-32.0); Chloride 105 mmol/L (98-108); Estimated Creatinine Clearance 45.54 ml/min (50-250); Glucose 141 mg/dL (70-99); Potassium 4.0 mmol/L (3.3-5.1)
--- NOTE | 2025-02-18 15:00 | PN_ITS ---
Subjective Subjective Patient seen and examined with her nurse by her bedside. She had a sitter by her. She is alert but acts very paranoid. She had no active complaints. She denied any fever or chills, palpitations, nausea or vomiting. She was not very cooperative with answering questions. Review of systems otherwise negative. Objective Data Objective Data Vital Signs: Vital Signs Temp Pulse Resp BP Pulse Ox O2 Del Method 97.9 F 67 16 113/71 98 Room Air 02/18/25 10:02/18/25 10:02/18/25 10:02/18/25 10:02/18/25 10:02/18/25 10:20 Oxygen Delivery Method Room Air Weight: 121 lb 7.948 oz Body Mass Index (BMI) 20.2 Intake & Output: Intake and Output for Last 24 Hours 02/16/25 02/17/25 02/18/25 23:59 23:59 23:59 Intake Total 1305 / 1305 500 / 500 Balance 1305 / 1305 500 / 500 Lab / Micro Data 02/18/25 11:22 02/18/25 11:22 Labs: Laboratory Results - last 24 hr 02/17/25 15:06: WBC 7.4, RBC 3.99 L, Hgb 11.3 L, Hct 35.4 L, MCV 88.7, MCH 28.3, MCHC 31.9 L, RDW Std Deviation 52.5 H, RDW Coeff of Tiffanie 15.9 H, Plt Count 316, MPV 9.1, Immature Gran % (Auto) 0.500, Neut % (Auto) 61.7, Lymph % (Auto) 21.0, [place] % (Auto) 13.3 H, Eos % (Auto) 3.1, Baso % (Auto) 0.4, Absolute Neuts (auto) 4.6, Absolute Lymphs (auto) 1.55, Nucleated RBC % 0, Sodium 141, Potassium 3.7, Chloride 108, Carbon Dioxide 21.0, Anion Gap 11, BUN 16, Creatinine 0.69 L, E stim Creat Clear Calc 45.54 L, Est GFR (MDRD) Non-Af 86, BUN/Creatinine Ratio 23.8 H, Glucose 112 H, Calcium 9.1 02/18/25 11:22: WBC 7.7, RBC 4.15 L, Hgb 11.7 L, Hct 37.0, MCV 89.2, MCH 28.2, M CHC 31.6 L, RDW Std Deviation 52.6 H, RDW Coeff of Tiffanie 15.9 H, Plt Count 338, MPV 8.7, Immature Gran % (Auto) 0.700, Neut % (Auto) 71.4 H, Lymph % (Auto) 14.7 L, Ida % (Auto) 10.8 H, Eos % (Auto) 2.0, Baso % (Auto) 0.4, Absolute Neuts (auto) 5.5, Absolute Lymphs (auto) 1.13, Nucleated RBC % 0, Sodium 137, Potassium 4.0, Chloride 105, Carbon Dioxide 19.1 L, Anion Gap 13, BUN 18, Creatinine 0.77, Estim Creat Clear Calc 45.54 L, Est GFR (MDRD) Non-Af 76, B UN/Creatinine Ratio 23.6 H, Glucose 141 H, Calcium 9.0 Micro: Microbiology 02/14/25 12:52 Urine, Clean Catch Legionella Antigen - Final 02/14/25 12:52 Urine, Clean Catch Streptococcus pneumoniae Antigen (M - Final 02/14/25 11:39 Mucosa - Nose SARS-CoV-2, Influenza & RSV (PCR) - Final Physical Exam Const alert and no apparent distress Constitutional Narrative: confused, intermittent agitation. appears to be paranoid Orientation / Consciousness: confused and lethargic HEENT normocephalic, head/scalp atraumatic, moist oral mucous membranes and oropharynx normal Eyes EOMs intact bilaterally Neck supple and no JVD Lymph Lymphatic: no lymphedema noted Resp normal respiratory effort, normal air movement and clear to auscultation bilaterally Cardio regular rate, regular rhythm, S1 normal heart sound, S2 normal heart sound and no murmurs GI normal to inspection, nondistended, normoactive bowel sounds, soft to palpation, non-tender and non-distended Extremity normal capillary refill, no clubbing, cyanosis or edema and no calf tenderness General Extremity: no tenderness to palpation of joints or extremities Skin General Skin Exam: no breakdown Neuro CN's II-XII intact bilaterally and no focal motor deficits Neuro Narrative: confused, moves all extremities Motor Exam: general weakness Psych Psych Narrative: confused, paranoid Assessment & Plan Assessment/Plan (1) Community acquired pneumonia: PLAN: Plan #Acute metabolic encephalopathy likely due to behavioral disturbance in setting of dementia * had intermittent agitation during this admission and required a sitter. This is likely due to behavioral disturbance in the setting of dementia. Chest x- ray was suggestive of pneumonia * Urine for strep and Legionella negative. On IV ceftriaxone and azithromycin. * On room air. Titrate oxygen to maintain saturation above 90%. * switched antibiotics to PO levofloxacin for a 5 day course. * risperdal for dementia. Dose increased to 1mg bid. IM haldol prn added on for agitation. * #Dementia: continue supportive care.ON memantine and risperdal. Risperdal increased to 1mg bid. #Restless leg syndrome: On pramipexole #GERD: On PPI DVT prophylaxis: SCDs Disposition: * Family now wanted to go back to the assisted living so they work on getting into a memory care unit from there. Patient's needs to be sitter free for 24 hours before she can go to the memory care. Sitter therefore discontinued today. For likely discharge tomorrow as long as she does not require sitter again. Charges/Coding Visit Charges Inpatient E&M: 75893 Subs Hosp L2
[2025-02-18 15:08] VITALS: BP 114/72; PULSE 76; RESP 16; TEMP 36.6; O2SAT 95
[2025-02-18 21:00] VITALS: BP 124/67; PULSE 87; RESP 16; TEMP 37; O2SAT 95
[2025-02-18] MEDS: MELATONIN 10 MG TABLET PO (21:03)
[2025-02-18 22:00] VITALS: RESP 16; O2SAT 95
[2025-02-19 03:00] VITALS: BP 125/64; PULSE 87; RESP 16; TEMP 37; O2SAT 96
[2025-02-19 07:34] LABS: Hematocrit 35.0 % (37-47); Hemoglobin 11.0 g/dL (12.0-15.0); Immature Granulocytes Count 0.060 X10^3/uL (0.0-0.0); Mean Corp Hgb Conc 31.4 g/dL (32-36); Mean Corpuscular Volume 89.7 fL (81-99); Mean Platelet Vol. 8.8 fl (6.2-12.0); NRBC Flagged by Analyzer 0 % (0-5); Platelet Count 312 K/mm3 (150-450); RBC Distribution Width CV 15.8 % (11.6-14.6); RBC Distribution Width SD 51.9 fl (35.1-43.9); Red Blood Count 3.90 M/mm3 (4.2-5.4); White Blood Count 9.1 K/mm3 (4.4-11.0)
[2025-02-19 07:54] LABS: Anion Gap 11 (5-15); BUN 21 mg/dL (4-19); BUN/Creat Ratio 26.7 RATIO (10-20); Calcium,Total 9.1 mg/dL (7.6-11.0); Carbon Dioxide 23.0 mmol/L (21.0-32.0); Chloride 106 mmol/L (98-108); Estimated Creatinine Clearance 45.54 ml/min (50-250); Glucose 102 mg/dL (70-99); Potassium 3.9 mmol/L (3.3-5.1)
[2025-02-19 08:52] VITALS: BP 113/54; PULSE 85; RESP 18; TEMP 36.4; O2SAT 98
[2025-02-19] MEDS: Memantine Hydrochloride 10 MG Tablet PO (08:53)
--- NOTE | 2025-02-19 12:04 | NURSING ---
AGRONOMY ADVISOR WAS REMOVED AT 1300 02/18
--- NOTE | 2025-02-19 12:27 | DS.PCM_ITS ---
Providers Date of Admission: 02/14/25 Date of Discharge: 02/19/25 Primary Care Physician: Dr. Genevieve Wu MD Reason For Visit: PNEUMONIA AND METABOLIC ENCEPHALOPATHY Diagnosis Discharge Diagnosis (1) Community acquired pneumonia: Status: Acute Code(s): J18.9 - Pneumonia, unspecified organism Plan #Acute metabolic encephalopathy likely due to behavioral disturbance in setting of dementia * had intermittent agitation during this admission and required a sitter. This is likely due to behavioral disturbance in the setting of dementia. Chest x- ray was suggestive of pneumonia * Urine for strep and Legionella negative. On IV ceftriaxone and azithromycin. * On room air. Titrate oxygen to maintain saturation above 90%. * switched antibiotics to PO levofloxacin for a 5 day course. * risperdal for dementia. Dose increased to 1mg bid. IM haldol prn added on for agitation. * #Dementia: continue supportive care.ON memantine and risperdal. Risperdal increased to 1mg bid. #Restless leg syndrome: On pramipexole #GERD: On PPI DVT prophylaxis: SCDs Disposition: * Family now wanted to go back to the assisted living so they work on getting into a memory care unit from there. Patient's needs to be sitter free for 24 hours before she can go to the memory care. Sitter therefore discontinued today. For likely discharge tomorrow as long as she does not require sitter again. 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 07/19/24 ipratropium bromide 21 mcg (0.03 %) nasal spray 2 spray intranasal QDAY 07/19/24 propranolol 20 mg tablet 20 mg PO .COMPLEX tremors 07/19/24 pramipexole 0.5 mg tablet 0.5 mg PO BID 10/05/24 alendronate 70 mg tablet (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 12/07/24 cholecalciferol (vitamin D3) 50 mcg (2,000 unit) capsule 50 mcg PO QDAY vit d deficiency 12/07/24 diclofenac sodium 1 % topical gel (Voltaren Arthritis Pain) 4 g topical ONCE rt hip pain 12/07/24 lidocaine 4 % topical patch (Aspercreme (lidocaine)) 1 patch topical QDAY PRN pain 12/07/24 methyl salicylate 15 %-menthol 10 % topical cream (Muscle Rub) 1 applic topical BID PRN muscle pain 12/07/24 tramadol 50 mg tablet 50 mg PO BID pain #60 tabs 01/17/25 levofloxacin 250 mg tablet 250 mg PO DAILY@0600 #4 tabs 02/19/25 Hospital Course Operations None Procedures None Summary of Care Provided Minutes Spent on Discharge: 37 Hospital Course: Patient is an 85-year-old female with a past medical history as outlined including dementia and essential tremor as well as restless leg syndrome and GERD who came into the ED on 02/14/2025 from her [place] [facility] on account of confusion and weakness as well as urinary and bowel incontinence. History was mainly taken from his son. She was apparently at her baseline the day before admission and went for an outing that day. However in the evening prior to admission patient was noted to be increasingly weak and confused with a urinary and stool incontinence. She usually did have some underlying waxing and waning of her orientation but was worse than her baseline. On admission labs were essentially unremarkable. Chest x-ray did show lingual atelectasis or pneumonia with findings suggestive of COPD. Respiratory panel was negative. Urinalysis did not show any evidence of infection. She was admitted and managed for acute encephalopathy in the setting of dementia due to pneumonia. She was started on IV levofloxacin. Patient's mentation subsequently improved and she was able to communicate very well. She however did have waxing and waning mentation. She was placed on Risperdal while she was here. Family was initially agreeable to patient going to memory care unit. However they opted for family to go back to her assisted living facility for family to assist her at their while working on getting her into a memory care unit. She was therefore discharged on 02/19/2025 on p.o. levofloxacin for 4-day course. She is to follow-up with her primary care doctor within 1 to 2 weeks and to be placed in the memory care facility from the assisted living. Patient was seen and examined on the day of discharge. She still had a flat affect and would not really answer questions. Unable to do comprehensive review of systems. Labs and vitals reviewed. Medication reviewed and reconciled. Physical Exam Const alert Constitutional Narrative: flat affect Orientation / Consciousness: awake HEENT normocephalic, head/scalp atraumatic, hearing grossly normal bilaterally and moist oral mucous membranes Mouth: oral and palatal mucosa normal Eyes EOMs intact bilaterally and conjunctivae normal Neck supple and no JVD Lymph Lymphatic: no lymphedema noted Resp normal respiratory effort, normal air movement and clear to auscultation bilaterally Cardio regular rate, regular rhythm, S1 normal heart sound, S2 normal heart sound and no murmurs GI normal to inspection, nondistended, normoactive bowel sounds, soft to palpation, non-tender and non-distended Extremity normal to inspection, full ROM, normal capillary refill, no clubbing, cyanosis or edema and no calf tenderness General Extremity: no tenderness to palpation of joints or extremities Skin no rashes or lesions noted General Skin Exam: no breakdown Neuro CN's II-XII intact bilaterally and no focal motor deficits Neuro Narrative: flat affect Sensorium / Orientation: awake Motor Exam: general weakness Psych Psych Narrative: flat affect Weight / BMI Weight Weight: 121 lb 7.948 oz Body Mass Index (BMI) 20.2 ABG / Lab / Microbiology Data 02/19/25 07:08 02/19/25 07:08 Laboratory: Laboratory Results - last 24 hr 02/19/25 07:08: WBC 9.1, RBC 3.90 L, Hgb 11.0 L, Hct 35.0 L, MCV 89.7, MCH 28.2, MCHC 31.4 L, RDW Std Deviation 51.9 H, RDW Coeff of Tiffanie 15.8 H, Plt Count 312, MPV 8.8, Immature Gran % (Auto) 0.700, Neut % (Auto) 69.1, Lymph % (Auto) 16.5 L , [place] % (Auto) 11.2 H, Eos % (Auto) 2.2, Baso % (Auto) 0.3, Absolute Neuts (auto) 6.3, Absolute Lymphs (auto) 1.51, Nucleated RBC % 0, Sodium 139, Potassium 3.9, Chloride 106, Carbon Dioxide 23.0, Anion Gap 11, BUN 21 H, Creatinine 0.78, Estim Creat Clear Calc 45.54 L, Est GFR (MDRD) Non-Af 75, B UN/Creatinine Ratio 26.7 H, Glucose 102 H, Calcium 9.1 Microbiology: Microbiology 02/14/25 12:52 Urine, Clean Catch Legionella Antigen - Final 02/14/25 12:52 Urine, Clean Catch Streptococcus pneumoniae Antigen (M - Final 02/14/25 11:39 Mucosa - Nose SARS-CoV-2, Influenza & RSV (PCR) - Final D/C Instructions Discharge Activity: Return to Normal Activity Weight Bearing Status: Weight bearing as tolerated Call your doctor if you observe: Fever of 101 or Higher, Shortness of breath, Dizziness and Swelling in the ankles DC O2, CPAP, BIPAP Needs Home O2 Discharge instructions: No DC home with Oxygen: No Meaningful Use Info Meaningful Use Meaningful Use Diagnoses (Choose all that apply): None applicable Discharge Plan Admission Admit Date/Time: 02/14/25 15:11 Primary Reason for Your Visit: acute encephalopathy, dementia with behavioral disturbance Attending Provider: Felicia Paniagua Primary Care Provider: Genevieve Wu Consulting Providers: Liudmila Morin Instructions Patient Instructions: Diabetes: Cognitive Changes, Delirium and Dementia Discharge Orders/Prescriptions Prescriptions: New levofloxacin 250 mg Tablet 250 mg PO DAILY@0600 Qty: 4 0RF Continued donepezil 10 mg tablet 10 mg PO QHS Qty: 30 6RF memantine 10 mg tablet 10 mg PO BID Qty: 60 6RF acetaminophen 325 mg tablet 650 mg PO Q4H PRN PRN (Reason: Fever, pain 1-03/24) Rx Instructions: Do not exceed 3000mg in 24 hrs calcium carbonate 600 mg calcium (1,500 mg) tablet 600 mg PO BID propranolol 20 mg tablet 20 mg PO .COMPLEX Rx Instructions: 20mg tid at 0700,1200, 1700. Hold for pulse less than 55 ipratropium bromide 21 mcg (0.03 %) spray,non-aerosol 2 spray intranasal QDAY Rx Instructions: administer into each nostril pramipexole 0.5 mg tablet 0.5 mg PO BID cholecalciferol (vitamin D3) 50 mcg (2,000 unit) capsule 50 mcg PO QDAY lidocaine [Aspercreme (lidocaine)] 4 % adhesive patch,medicated 1 patch topical QDAY PRN (Reason: pain) alendronate [Fosamax] 70 mg tablet 70 mg PO QWEEK Rx Instructions: takes every thursday Muscle Rub 15-10 % cream 1 applic topical BID PRN (Reason: muscle pain) diclofenac sodium [Voltaren Arthritis Pain] 1 % gel 4 g topical ONCE Rx Instructions: apply to single knee, ankle, foot; for foot includes sole/toes/top of foot sennosides-docusate sodium [Stool Softener-Stimulant Laxat] 8.6-50 mg Tablet 2 tab PO BID PRN PRN (Reason: Constipation) Qty: 0 0RF tramadol 50 mg tablet 50 mg PO BID Qty: 60 0RF Discontinued acetaminophen 500 mg tablet 1,000 mg PO Q8H PRN Rx Instructions: Do not exceed 3000mg in 24 hrs tramadol 50 mg tablet 50 mg PO QDAY PRN (Reason: pain) Qty: 20 0RF Referrals / Follow Up: Genevieve Wu MD [Primary Care Provider] - Within 1 Week Disposition Disposition (needs filled in before D/C Order can be placed): NonSkilled NH/Intermed Care Charges/Coding Visit Charges Inpatient E&M: 54890 Disch Hosp >30min
--- NOTE | 2025-02-19 13:22 | NURSING ---
Discharge instructions provided to son at this time. iv removed with catheter intact, clean dry dressing applied pt tolerated well. pt assisted to get dressed and will be wheeled out to sons waiting vehicle. Adonay HURD called and informed that pt will be returning. all questions answered. pt and son deny any further questions or needs at this time.
== END 2025-02-19 13:28 | disposition intermediate care facility (04) | DRG 193 ==
LOC: ED 14:57 → MS3 15:14
PROVIDERS: Admitting Provider Internal Medicine; Emergency Provider Surgery; PCP Internal Medicine; Visit Provider Student in an Organized Health Care Education/Training Program
DX: J18.9 Pneumonia, unspecified organism (principal); G93.41 Metabolic encephalopathy; F03.90 Unspecified dementia, unspecified severity, without behavioral disturbance, psychotic disturbance, mood disturbance, and anxiety; G25.81 Restless legs syndrome; I10 Essential (primary) hypertension; E78.5 Hyperlipidemia, unspecified; K21.9 Gastro-esophageal reflux disease without esophagitis; Z87.891 Personal history of nicotine dependence; R45.1 Restlessness and agitation; Z79.899 Other long term (current) drug therapy
CPT/HCPCS: 36415; 71046; 80048; 80053; 81001; 83605; 83690; 84484; 85025; 85610; 85730; 87449; 87631; 93005; 97162; 97166; 97530; 97535; 97802; 99285; P9612; A4216; J0696

== ENCOUNTER → 2025-02-21 | Outpatient (REF) | payer MEDICARE, SELFPAY ==
--- OUTSIDE RECORDS SUMMARY | 2025-02-21 04:09 | XMS RPT_ITS | CCD ---
Author Organization [facility] Care Team Providers Care Claims Customer Service Representative Name Role Phone Unavailable Primary Care Provider UnavailDr. Lalo Villarreal Primary Care Provider Dr. Laol Palm Attending Provider Dr. Lalo Palm Referring [...] Provider Dr. Vish Cook Attending Provider Seb NATIONAL OPELINT ANALYST, NATIONAL OPELINT ANALYST-Sanjana Gnozalez Attending Provider Dr. Nicholas Cohen Emergency Provider Dr. Nicci Lemus Primary Care Provider Dr. Karon Nunes Admit Provider Dr. Karon Nunes Other Provider Dr. Darinel Carlos Attending Provider Dr. Darinel Carlos Other Provider Dr. Pravin Cruz Attending Provider Dr. Pravin Cruz Other Provider Dr. John Johnston Attending Provider Dr. John Johnston Other Provider SALLY CAMP DIRECTOR-C, DUNCAN M Unavailable LESLY SÁNCHEZ, RACHID Castañeda Unavailable TAQUERIA GORDON Unavailable Unavailable PHYSICAL THERAPY, CONSULT Unavailable Unavai lable PAIN MANAGEMENT, MYLA Unavailable Cuca RN, Sisi Unavailable Unavailable BONNY RN, DAYANNA Unavailable Unavailable Laura RN, Jaida Unavailable Unavailab jacklyn LEMUS MD, Tucker GARJEDA Unavailable [phone] IVÁN MAGALLON Unavailable Unavailable Unavailable Unavailable Dr. [...] Other Provider Dr. Pravin Cruz Other Provider SALLY CAMP DIRECTOR-C, DUNCAN Hilton Unavailable Unav catherine Lemus MD, Dr. Grajeda Primary Care Provider Genevieve Wu MD Attending Provider Yulia Wu MD, Dr. Vallejo Primary Care Provider Matthew NATIONAL OPELINT ANALYST-C, Attending Provider Jazmin SÁNCHEZ, Dr. Vallejo Attending Provider [phone] Jayjay SÁNCHEZ, Dr. Grajeda Referring Provider Dr. Vish Cook MD Attending Provider Jazmin SÁNCHEZ, Dr. Vallejo Referring Provider [phone] Dr. Willian Palm DO Attending Provider Dr. Yunior Desai MD Attending Provider Jazmin SÁNCHEZ, Dr. Vallejo Primary Care Provider Jazmin SÁNCHEZ, Genevieve Attending Provider Yulia Wu MD, Dr. Vallejo Attending Provider [phone] Jazmin SÁNCHEZ, Genevieve Referring Provider Dr. Yunior Onofre MD Referring Provider Dr. Sharon Crouch MD Attending Provider Jazmin SÁNCHEZ, Dr. Vallejo Primary Care Provider Dr. Willian Palm DO Referring Provider Dr. Vish Cook MD Attending Provider Jazmin SÁNCHEZ, Dr. Vallejo Primary Care Provider Genevieve Wu MD Attending Provider Yulia Wu MD, Dr. Vallejo Referring Provider [phone] Jaden NATIONAL OPELINT ANALYST-C, Idalia Hilton Attending Provider Dr. Genevieve Wu MD Primary Care Provider Genevieve Wu MD Attending Provider Unavailkali Castro NATIONAL OPELINT ANALYST-CBarbara Attending Provider Jazmin SÁNCHEZ, Dr. Vallejo Primary Care Provider Jazmin SÁNCHEZ, Dr. Vallejo Referring Provider [phone] Matthew NATIONAL OPELINT ANALYST-C, Attending Provider Néstor RINCON, Dr. Dorsey Attending Provider WHITE, MARCOS Admitting Unavailable KORNHAUS, R NICCI Consulting Unavailable WHITE, MARCOS Primary Care Unavailable WHITE, MARCOS Attending Unavailable PROVIDER, UNKNOWN Consulting Unavailable PROVIDER, UNKNOWN Consulting Unavailable PROVIDER, UNKNOWN Consulting Unavailable WHITE, MARCOS Admitting Unavailable KORNHAUS, R NICCI Consulting Unavailable WHITE, MARCOS Primary Care Unavailable WHITE, MARCOS Attending Unavailable PROVIDER, UNKNOWN Consulting Unavailable PROVIDER, UNKNOWN Consulting Unavailable PROVIDER, UNKNOWN Consulting Unavailable WHITE, MARCOS Admitting Unavailable KORNHAUS, R NICCI Consulting Unavailable WHITE, MARCOS Primary Care Unavailable WHITE, MARCOS Attending Unavailable PROVIDER, UNKNOWN Consulting Unavailable PROVIDER, UNKNOWN Consulting Unavailable PROVIDER, UNKNOWN Consulting Unavailable WHITE, MARCOS Admitting Unavailable WHITE, MARCOS Primary Care Unavailable KORNHAUS, R NICCI Consulting Unavailable WHITE, MARCOS Attending Unavailable PROVIDER, UNKNOWN Consulting Unavailable PROVIDER, UNKNOWN Consulting Unavailable PROVIDER, UNKNOWN Consulting Unavailable Jazmin SÁNCHEZ, Dr. Vallejo Primary Care Provider Matthew NATIONAL OPELINT ANALYST-CBarbara Attending Provider Genevieve Wu MD Attending Provider UnavailGenevieve Waterman MD Referring Provider UnavailDr. Yunior Stoner MD Attending Provider Dr. Yunior Desai MD Referring Provider Dr. Sharon Crouch MD Attending Provider Dr. Willian Palm DO Attending Provider Dr. Willian Palm DO Referring Provider [phone] Genevieve Wu MD Referring Provider [phone] Wahl Attending Provider Jaden PACHECO-CIdalia Attending [facility] cast[facility] DO Emergency Provider Mikel SÁNCHEZ, Dr. Nur Admit Provider Mikel SÁNCHEZ, Dr. Nur Attending Provider Mikel SÁNCHEZ, Dr. Nur Other Provider [phone] Arcelia SÁNCHEZ, Dr. Felicia Nick Attending Provider Arcelia SÁNCHEZ, Dr. Felicia Nick Other Provider [phone] Manju SÁNCHEZ, Dr. Karon Marrero Attending Provider Oleghe OLS, Efewongbe Attending Unavailabl e Oleghe, Efewongbe Primary Care Unavailable Oleghe, Efewongbe Primary Care Unavailable Oleghe OLS, Efewongbe Attending Unavailabl e Oleghe, Efewongbe Primary Care Unavailable Oleghe, Efewongbe Attending Unavailable Oleghe, Efewongbe Referring Unavailable Villagran, Achintya Admitting Unavailable Kornhaus, Nicci Primary Care Unavailable Villagran, Achintya Consulting Unavailable John Johnston Attending Unavailable John Johnston Consulting Unavailable Oleghe OLS, Efewongbe Attending Unavailabl e Oleghe OLS, Efewongbe Referring Unavailabl e Oleghe, Efewongbe Primary Care Unavailable Oleghe OLS, Efewongbe Attending Unavailabl e Oleghe, Efewongbe Primary Care Unavailable Oleghe OLS, Efewongbe Attending Unavailabl e Oleghe, Efewongbe Primary Care Unavailable Villagran, Achintya Admitting Unavailable Kornhaus, Nicci Primary Care Unavailable Pravin Cruz Attending Unavailable Villagran, Achintya Consulting Unavailable John Johnston Consulting Unavailable Sharon Crouch Attending Unavailable Oleghe, Efewongbe Primary Care Unavailable Yunior Desai Referring Unavailable Yunior Desai Attending Unavailable Oleghe, Efewongbe Primary Care Unavailable Kornhaus, Nicci Primary Care Unavailable Juarez, Blake Attending Unavailable Willian Palm Referring Unavailable Willian Palm Attending Unavailable Oleghe, Efewongbe Primary Care Unavailable Kornhaus, Nicci Primary Care Unavailable Oleghe OLS, Efewongbe Attending Unavailabl e Kornhaus, Nicci Primary Care Unavailable Oleghe OLS, Efewongbe Attending Unavailabl e Kornhaus, Nicci Primary Care Unavailable Oleghe OLS, Efewongbe Attending Unavailabl e Cindyton NATIONAL OPELINT ANALYST, Attending Unavailable Oleghe, Efewongbe Primary Care Unavailable Matthew NATIONAL OPELINT ANALYST, Attending Unavailable Oleghe, Efewongbe Primary Care Unavailable Oleghe, Efewongbe Attending Unavailable Oleghe, Efewongbe Primary Care Unavailable Matthew NATIONAL OPELINT ANALYST, Attending Unavailable Oleghe, Efewongbe Primary Care Unavailable Oleghe, Efewongbe Primary Care Unavailable Oleghe OLS, Efewongbe Attending Unavailabl e Felicia Paniagua Attending Unavailable Liudmila Morin Consulting Unavailable Oleghe, Efewongbe Primary Care Unavailable Liudmila Morin Admitting Unavailable Rj Mcdonald Consulting Unavailable Bernardo Ruiz Consulting Unavailable Markus Weldon Consulting Unavailable Willian Palm Consulting Unavailable Emiliano Redmond Consulting Unavailable Guillermo Huggins Consulting Unavailable Terrance Olmos Consulting Unavailable Padmini East Consulting UnavailAdrien Solitario Consulting Unavailable Yefri Kwok Consulting Unavailable Luis Angel Arias Consulting Unavailable Blanca Fonseca Consulting Unavailable Doretha Mohr Consulting Unavailable Channing Bunch Consulting Unavailable Daniele Tavera Consulting Unavailable Junaid Grigsby Consulting Unavailable Johnathan Perry Consulting Unavailable Mercedes Whiting Consulting Unavailable Lux Fletcher Consulting Unavailable Jassi Ashton Consulting Unavailable Bladimir Treviño Consulting Unavailable Willian Palm Attending Unavailable Willian Palm Referring Unavailable Oleghe, Efewongbe Primary Care Unavailable Willian Palm Attending Unavailable John Johnston Referring Unavailable Liudmila Morin Consulting Unavailable Liudmila Morin Admitting Unavailable Karon Nunes Attending Unavailable Oleghe, Efewongbe Primary Care Unavailable Arcelia, Felicia Park Consulting Unavailable Felicia Paniagua Attending Unavailable Liudmila Morni Attending Unavailable Jayjay, Nicci Referring Unavailable Vish Cook Attending Unavailable Oleghe, Efewongbe Primary Care Unavailable Oleghe, Efewongbe Attending Unavailable Oleghe, Efewongbe Primary Care Unavailable Matthew NATIONAL OPELINT ANALYST, Attending Unavailable Oleghe, Efewongbe Primary Care Unavailable Barbara Castro NP Attending Unavailable Oleghe, Efewongbe Primary Care Unavailable Idalia Stanley Attending Unavailable Oleghe, Efewongbe Primary Care Unavailable Oleghe, Efewongbe Referring Unavailable Vish Cook Attending Unavailable Oleghe, Efewongbe Primary Care Unavailable Oleghe, Efewongbe Referring Unavailable Yunior Desai Attending Unavailable Oleghe, Efewongbe Referring Unavailable Oleghe, Efewongbe Primary Care Unavailable Willian Palm Attending Unavailable Oleghe, Efewongbe Referring Unavailable Oleghe, Efewongbe Primary Care Unavailable Hilaria Villagran Referring Unavailable Nicci Lemus Primary Care Unavailable Chevy Lee Attending Unavailable Pravin Cruz Attending Unavailable Pravin Cruz Consulting Unavailable Hilaria Villagran Attending Unavailable Barbara Castro NP Attending Unavailable Oleghe, Efewongbe Primary Care Unavailable Oleghe OLS, Efewongbe Attending Unavailabl e Oleghe, Efewongbe Primary Care Unavailable Medications Current Medications Medication Drug Class(es) Dates Sig (Normalized) Sig (Original) alendronic acid 70 mg oral tablet (20 sources) Bisphosphonate Start: 10-05-2024 Start: 03-03-2018 End: 03-06-2021 calcium carbonate 1500 mg or al tablet (11 sources) Start: 07-19-2024 cholecalciferol 0.05 mg oral capsule (20 sources) Vitamin D Start: 12-07-2024 Start: 06-01-2023 End: 02-14-2025 Start: 06-01-2023 End: 07-19-2024 take 1 tablet by mouth once daily Cholecalciferol (Vitamin D3) (Vitamin D3) 25 mcg (1,000 unit) tablet Discontinued 25 ug PO DAILY 30 January 20, 2024 4:25pm July 19, 2024 11:14am Start: 02-15-2022 End: 04-16-2023 Start: 02-15-2022 End: 04-16-2023 take 1 tablet by mouth once daily Cholecalciferol (Vitamin D3) (Vitamin D3) 25 mcg (1,000 unit) tablet Discontinued 25 ug PO DAILY 30 July 14, 2022 5:50pm November 18, 2022 8:56pm Start: 12-29-2017 End: 11-16-2018 Comment on above: OTC diclofenac sodium 0.01 mg/mg topical gel (7 sources) Nonsteroidal Anti-inflammatory Drug Start: 12-07-2024 Start: 12-07-2024 Diclofenac Sod ium (Voltaren Arthritis Pain) 1 % gel Active 4 g TOPICAL ONCE December 07, 2024 12:00am apply to single knee, ankle, foot; for foot includes sole/toes/top of foot docusate sodium 50 mg / sylvia osides, skilled nursing 8.6 mg oral tablet (20 sources) Start: 04-23-2023 Start: 04-23-2023 Sennosides-Doc usate Sodium (Stool Softener-Stimulant Laxat) 8.6-50 mg Tablet Active 2 {tbl} PO TWICE DAILY NEEDED as needed for Constipation 0 0 April 23, 2023 1:00am Start: 01-15-2018 End: 12-20-2021 Start: 01-15-2018 End: 12-20-2021 Sennosides-Docusate Sodium 8 .6-50 mg tablet Discontinued 2 {tbl} PO TWICE A DAY as needed for Constipation April 27, 2019 3:57pm December 20, 2021 1:06pm Start: 01-15-2018 End: 12-20-2021 take 2 tablets by mouth twice daily Sennosides-Docusate Sodium Discontinued 2 TABLET PO TWICE A DAY April 27, 2019 2:57pm December 20, 2021 12:06pm ipratropium bromide 0.021 mg /actuat metered dose nasal spray (20 sources) Anticholinergic Start: 07-19-2024 Start: 07-19-2024 Ipratropium Br omide 21 mcg [...] ( 0.06 %) nasal spray ; 2 [place] up to three times daily as needed prn allergic rhinitis for 30 days Quantity: 15 {Milliliter} Refills: 11 Ordered: 13-Nov-2022 CAMDEN Thurman Start: 07-Apr-2022 End: 13-Nov-2022 Status: Inactive Comments: Medication taken as needed. Start: 05-08-2021 End: 07-10-2022 Start: 05-08-2021 End: 07-10-2022 Ipratropium [place] 42 mcg ( 0.06 %) spray,non-aerosol Discontinued 2 NMA INTRANASAL THREE TIMES A DAY as needed for allergy symptoms 29 06May 08, 2021 1:00am July 10, 2022 12:25pm administer into each nostril Start: 05-08-2021 End: 07-10-2022 take 1 spray(s) nasal route three times daily Ipratropium [place]z Discontinued 2 SPRAY INTRANASAL THREE TIMES A DAY May 08, 2021 12:00am July 10, 2022 11:25am administer into each nostril Comment on above: Medication taken as needed. levoFLOXacin 250 mg oral tab let (12 sources) Quinolone Antimicrobial Start: 02-19-2025 Start: 06-14-2024 End: 07-19-2024 lidocaine 0.04 mg/mg medicated patch (20 sources) Antiarrhythmic, Amide Local Anesthetic Start: 12-07-2024 Start: 07-19-2024 End: 12-07-2024 Start: 04-07-2022 End: 11-13-2022 apply 1 dose [...] 13, 2021 4:21pm July 10, 2022 12:25pm Pain leave on most painful area for up to 12 hrs Start: 05-08-2021 End: 07-10-2022 Start: 05-08-2021 End: 12-13-2021 Lidocaine 5 % adhesive patch,medicated Discontinued 1 NMA TOPICAL DAILY 14 07May 08, 2021 1:00am December 13, 2021 4:21pm [...] Comment on above: Medication taken as needed. menthol 100 mg/ml / methyl salicylate 150 mg/ml topical cream (7 sources) Start: 12-07-2024 Start: 12-07-2024 Methyl Salicyl ate-Menthol (Muscle Rub) 15-10 % cream Active 1 NMA TOPICAL TWICE A DAY as needed December 07, 2024 12:00am nitroglycerin 0.4 mg sublingual tablet (20 sources) Nitrate Vasodilator Start: 06-30-2022 Nitrostat 0.4 mg sublingual tablet ; 1 [...] Lact-Reduced, Iron (Boost Vhc) 0.09-2.25 gram-kcal/mL liquid (9 sources) Start: 07-19-2024 Nut Tx, Lact-R educed, Iron (Boost Vhc) 0.09-2.25 gram-kcal/mL liquid Active 120 mL PO THREE TIMES A DAY July 19, 2024 1:00am propranolol hydrochloride 20 mg oral tablet (20 sources) beta-Adrenergic Mauricio Start: 02-23-2024 End: 07-19-2024 Start: 01-20-2024 End: 02-23-2024 Start: 06-01-2023 End: 01-20-2024 Start: 04-23-2023 End: 06-01-2023 Start: 04-23-2023 End: 06-01-2023 Start: 04-23-2023 End: 06-01-2023 Propranolol 10 mg Tablet Discontinued 20 mg PO 1200,1700 60 0 April 23, 2023 1:00am June 01, 2023 6:07pm Start: 04-23-2023 End: 06-01-2023 Propranolol Discontinued 20 MG PO 1200,1700 60 April 23, 2023 12:00am June 01, 2023 5:07pm Start: 03-17-2023 End: 04-23-2023 Start: 11-18-2022 End: 03-17-2023 Start: 03-06-2021 End: 11-18-2022 take 1 tablet by mouth three times daily Propranolol HCl 20 MG Oral Tablet ; 1 Tablet three times daily for 30 days Quantity: 90 {Tablet} Refills: 11 Ordered: 07-Apr-2022 MD Tucker LEMUS Start: 07-Apr-2022 Comments: Patient will call when prescription refill is needed. Start: 11-24-2019 End: 11-18-2022 Start: 11-24-2019 End: 03-06-2021 take 1 tablet by mouth twice daily Propranolol 20 mg tablet Discontinued 20 mg PO TWICE A DAY 180 1 November 16, 2020 7:58am March 06, 2021 4:20pm Start: 03-03-2018 End: 10-14-2018 Start: 03-03-2018 End: 10-14-2018 take 1 tablet by mouth twice daily Propranolol 40 mg tablet Discontinued 40 mg PO TWICE A DAY 60 3 September 11, 2018 10:44am October 14, 2018 9:50am Comment on above: Patient will call en prescription refill is needed. Completed/Discontinued Medications Medication Drug Class(es) Dates Sig (Normalized) Sig (Original) acetaminophen 500 mg oral tablet (20 sources) Start: 07-19-2024 End: 02-19-2025 Start: 04-23-2023 End: 07-19-2024 Start: 04-23-2023 take 650 mg by mouth every four hours as needed Acetaminophen Active 650 MG PO EVERY 4 HOURS NEEDED April 23, 2023 12:00am Start: 07-10-2022 End: 04-23-2023 Start: 01-15-2018 End: 07-10-2022 Start: 01-15-2018 End: 07-10-2022 take 1000 mg by mouth every eight hours Acetaminophen Discontinued 1000 MG PO EVERY 8 HOURS December 13, 2021 3:21pm July 10, 2022 11:25am take 2 capsules by m outh three times daily Tylenol 500 MG Oral Capsule ; 2 three times daily (500 MG) acetaminophen 325 mg / HYDRO codone bitartrate 5 mg oral tablet (20 sources) Opioid Agonist Start: 03-16-2019 End: 04-27-2019 Start: 03-16-2019 End: 04-27-2019 Hydrocodone-Acetaminophen 5- 325 mg tablet Discontinued 1 {tbl} PO EVERY 6 HOURS as needed for pain 0 March 23, 2019 12:00am April 27, 2019 3:56pm Start: 03-16-2019 End: 04-27-2019 take 1 tablet by mouth every six hours Hydrocodone-Acetaminophen Discontinued 1 TABLET PO EVERY 6 HOURS March 22, 2019 11:00pm April 27, 2019 2:56pm Start: 01-02-2018 End: 01-15-2018 Start: 01-02-2018 End: 01-15-2018 Hydrocodone-Acetaminophen 1 TABLET tablet Discontinued 1 {tbl} PO EVERY 6 HOURS NEEDED as needed for Mild-moderate pain (scale 1-5) 20 5 0 January 02, 2018 12:00am January 15, 2018 1:24pm Closed fracture of left hip Start: 01-02-2018 End: 01-15-2018 take 1 tablet by mouth every six hours as needed Hydrocodone-Acetaminophen Discontinued 1 TABLET PO EVERY 6 HOURS NEEDED 20 5 January 01, 2018 11:00pm January 15, 2018 12:24pm amoxicillin 875 mg / clavula tyrone 125 mg oral tablet (13 sources) Penicillin-class Antibacterial Start: 08-17-2023 End: 01-20-2024 Start: 08-17-2023 End: 01-20-2024 Amoxicillin-Pot Clavulanate 875-125 mg tablet Discontinued 1 {tbl} PO TWICE A DAY 14 August 17, 2023 1:00am January 20, 2024 4:21pm Start: 08-17-2023 take 1 tablet by hao twice daily Amoxicillin-Pot Clavulanate Active 1 TABLET PO TWICE A DAY August 17, 2023 12:00am aspirin 325 mg oral tablet (20 sources) Platelet Aggregation Inhibitor, Nonsteroidal Anti-inflammatory Drug Start: 03-06-2021 End: 09-26-2021 azelastine hydrochloride 0.137 mg/actuat metered dose nasal spray (20 sources) Histamine-1 Receptor Antagonist Start: 04-07-2022 End: 11-13-2022 azelastine 137 mcg (0.1 %) nasal spray aerosol ; 2 sprays [place] every 12 hours as needed for rhinitis for 30 days Quantity: 30 {Milliliter} Refills: 11 Ordered: 13-Nov-2022 CAMDEN Thurman Start: 07-Apr-2022 End: 13-Nov-2022 Status: Inactive Comments: Medication taken as needed. Facility will call when needed Start: 11-24-2019 End: 07-10-2022 Start: 11-24-2019 End: 07-10-2022 Azelastine 137 mcg (0.1 %) aerosol,spray Discontinued 1 NMA INTRANASAL TWICE A DAY 14 07May 24, 2020 6:09pm December 13, 2021 4:21pm administer into each nostril Start: 11-24-2019 End: 07-10-2022 take 1 spray(s) nasal route twice daily Azelastine Discontinued 1 SPRAY INTRANASAL TWICE A DAY May 24, 2020 5:09pm December 13, 2021 3:21pm administer into each nostril Comment on above: Medication taken as needed. Facility will call when needed bisacodyl 5 mg delayed relea se oral tablet (20 sources) Stimulant Laxative Start: 01-15-2018 End: 08-24-2019 Start: 01-15-2018 End: 08-24-2019 take 10 mg by mouth once daily Bisacodyl Discontinued 10 MG PO DAILY January 14, 2018 11:00pm August 24, 2019 3:03pm calcium citrate 1190 mg / ch olecalciferol 0.005 mg oral tablet (20 sources) Vitamin D Start: 03-23-2019 End: 07-19-2024 Start: 03-23-2019 End: 07-19-2024 Calcium Citrate-Vitamin D3 2 50 mg-5 mcg (200 unit) tablet Discontinued 1 {tbl} PO THREE TIMES A DAY 90 5 July 14, 2022 5:51pm November 18, 2022 8:56pm Supplement cephalexin 500 mg oral capsu le (11 sources) Cephalosporin Antibacterial Start: 05-30-2024 End: 06-07-2024 ciprofloxacin 500 mg oral ta blet (20 sources) Quinolone Antimicrobial Start: 12-13-2021 End: 12-20-2021 clonazePAM 0.5 mg oral table t (20 sources) Benzodiazepine Start: 08-24-2019 End: 03-06-2021 Start: 06-21-2019 End: 08-24-2019 Start: 04-27-2019 End: 06-21-2019 docusate sodium 100 mg oral capsule (20 sources) Start: 01-02-2018 End: 01-15-2018 donepezil hydrochloride 10 m g oral tablet (20 sources) Start: 04-07-2022 End: 01-20-2024 Start: 02-15-2022 End: 07-10-2022 take 2 tablets by mouth at bedtime Donepezil 5 mg tablet Discontinued 10 mg PO AT BEDTIME February 15, 2022 2:03pm July 10, 2022 1:20pm Start: 02-15-2022 End: 07-10-2022 take 10 mg by mouth at bedtime Donepezil Discontinued 10 MG PO AT BEDTIME February 15, 2022 1:03pm July 10, 2022 12:20pm Start: 12-26-2021 End: 07-10-2022 Start: 12-26-2021 End: 02-15-2022 take 1 tablet by mouth at bedtime Donepezil 5 mg Tablet Discontinued 5 mg PO AT BEDTIME 30 30 0 December 26, 2021 12:00am February 15, 2022 2:03pm Comment on above: Patient will call en prescription refill is needed. DULoxetine 20 mg delayed release oral capsule (20 sources) Serotonin and Norepinephrine Reuptake Inhibitor Start: 05-08-2021 End: 09-26-2021 Start: 03-06-2021 End: 05-08-2021 ferrous sulfate 325 mg oral tablet (20 sources) Start: 12-29-2017 End: 01-15-2018 fluticasone propionate 0.05 mg/actuat metered dose nasal spray (20 sources) Corticosteroid Start: 10-14-2018 End: 07-10-2022 Start: 10-14-2018 End: 11-13-2022 fluticasone propionate 50 mc g/actuation nasal spray,suspension ; 1 spray [place] daily as needed for allergic rhinitis for 30 days Quantity: 15.8 {Milliliter} Refills: 11 Ordered: 13-Nov-2022 CAMDEN Thurman Start: 07-Apr-2022 End: 13-Nov-2022 Status: Inactive Comments: Medication taken as needed. Patient will call when prescription refill is needed. Comment on above: Medication taken as needed. Patient will call when prescription refill is needed. Food Supplemt, Lactose-Reduced (Ensure Plus High Protein) 0.08 gram-1.5 kcal/mL Liquid (13 sources) Start: 04-23-2023 End: 06-07-2024 Food Supplemt, Lactose-Reduced (Ensure Plus High Protein) 0.08 gram-1.5 kcal/mL Liquid Discontinued 120 mL PO 4 TIMES DAILY 0 April 23, 2023 1:00am June 07, 2024 3:07pm Start: 04-23-2023 End: 06-07-2024 Food Supplemt, Lactose-Reduc ed (Ensure Plus High Protein) 0.08 gram-1.5 kcal/mL Liquid Discontinued 120 mL PO 4 TIMES DAILY 0 April 23, 2023 1:00am June 07, 2024 3:07pm Start: 04-23-2023 Food Supplemt, Lactose-Reduced (Ensure Plus High Protein) 0.08 gram-1.5 kcal/mL Liquid Active 120 ML PO 4 TIMES DAILY 0 April 23, 2023 12:00am ibuprofen 600 mg oral tablet (20 sources) Nonsteroidal Anti-inflammatory Drug Start: 05-30-2021 End: 09-26-2021 Start: 07-05-2020 End: 05-08-2021 take 1 tablet by hao th three times daily Ibuprofen 200 200 MG Oral Tablet ; 1 three times daily (200 MG) magnesium hydroxide 80 mg/ml oral suspension (20 sources) Start: 01-02-2018 End: 01-15-2018 Start: 01-02-2018 End: 01-15-2018 take 1 mL by mouth once daily as needed for constipation Magnesium Hydroxide 30 ML Udc Discontinued 30 mL PO DAILY NEEDED as needed for Constipation 0 January 02, 2018 12:00am January 15, 2018 1:24pm Start: 01-02-2018 End: 01-15-2018 take 1 mL by mouth once daily as needed Magnesium Hydroxide Discontinued 30 ML PO DAILY NEEDED January 01, 2018 11:00pm January 15, 2018 12:24pm Comment on above: Medication taken as needed. meloxicam 7.5 mg oral tablet (20 sources) Nonsteroidal Anti-inflammatory Drug Start: 05-08-2021 End: 09-26-2021 memantine hydrochloride 10 m g oral tablet (20 sources) X-utbygv-K-aspartate Receptor Antagonist Start: 02-11-2022 End: 01-20-2024 Start: 02-11-2022 End: 07-10-2022 take 1 tablet [...] refill is needed. Menthol / Zinc Oxide (13 sources) Start: 04-23-2023 End: 07-19-2024 Menthol-Zinc Oxide (Calmoseptine) 0.44-20.6 % Ointment Discontinued 1 NMA TOPICAL 4 TIMES DAILY 0 0 April 23, 2023 1:00am July 19, 2024 11:14am Please contact the information source for Protocol details. Start: 04-23-2023 End: 07-19-2024 Menthol-Zinc Oxide (Calmosep gabi) 0.44-20.6 % Ointment Discontinued 1 NMA TOPICAL 4 TIMES DAILY 0 April 23, 2023 1:00am July 19, 2024 11:14am Please contact the information source for Protocol details. Start: 04-23-2023 Menthol-Zinc O xide (Calmoseptine) 0.44-20.6 % Ointment Active 1 APPLIC TOPICAL 4 TIMES DAILY 0 April 23, 2023 12:00am mirtazapine 7.5 mg oral tabl et (20 sources) Start: 04-23-2023 End: 06-01-2023 Start: 04-23-2023 End: 06-01-2023 take 1 tablet by mouth at bedtime Mirtazapine 15 mg Tablet Discontinued 15 mg PO AT BEDTIME 30 0 April 23, 2023 1:00am June 01, 2023 6:06pm Start: 04-07-2022 End: 06-07-2024 Start: 12-20-2021 End: 07-10-2022 Start: 12-20-2021 End: 07-10-2022 take 7.5 mg by mouth at bedtime Mirtazapine 15 mg Tabl et Discontinued 7.5 mg PO AT BEDTIME 15 30 0 December 20, 2021 12:00am July 10, 2022 1:17pm Start: 12-20-2021 End: 07-10-2022 take 7.5 mg by mouth at bedtime Mirtazapine Discontinu ed 7.5 MG PO AT BEDTIME 15 30 December 19, 2021 11:00pm July 10, 2022 12:17pm Comment on above: Patient will call en prescription refill is needed. nitrofurantoin, macrocrystal s 25 mg / nitrofurantoin, monohydrate 75 mg oral capsule (15 sources) Nitrofuran Antibacterial Start: 04-05-2023 End: 04-12-2023 oxyCODONE hydrochloride 5 mg oral tablet (20 sources) Opioid Agonist Start: 01-15-2018 End: 11-16-2018 Start: 01-15-2018 End: 02-23-2018 take 1 tablet by mouth every four hours as needed for pain Oxycodone 5 MG tablet Discontinued 5 mg PO EVERY 4 HOURS NEEDED as needed for Moderate Pain (4-5/10) 28 0 January 15, 2018 12:00am February 23, 2018 8:27am Closed fracture of left hip polyethylene glycol 3350 170 00 mg powder for oral solution (20 sources) Osmotic Laxative Start: 01-15-2018 End: 08-24-2019 polysaccharide iron complex 150 mg oral capsule (20 sources) Start: 01-15-2018 End: 11-16-2018 potassium chloride 1.33 meq/ ml oral solution (20 sources) Start: 12-20-2021 End: 07-10-2022 Comment on above: Patient will call en prescription refill is needed. potassium phosphate 155 mg / sodium phosphate, dibasic 852 mg / sodium phosphate, monobasic 130 mg oral tablet (20 sources) Start: 12-13-2021 End: 12-20-2021 Start: 12-13-2021 End: 12-20-2021 take 2 tablets by mouth three times daily Sod Phos Di, [place]-K Phos [place] (W-Ysnq-Tclcqtp) 250 mg tablet Discontinued 2 TABLET PO THREE TIMES A DAY December 13, 2021 3:21pm December 20, 2021 12:05pm pramipexole dihydrochloride 0.5 mg oral tablet (20 sources) Nonergot Dopamine Agonist Start: 02-23-2019 End: 10-05-2024 Start: 02-23-2019 End: 07-21-2023 take 1 tablet by mouth three times daily Pramipexole Dihydrochloride 0.5 MG Oral Tablet ; 1 Tablet three times daily for 30 days Quantity: 90 {Tablet} Refills: 11 Ordered: 07-Apr-2022 MD Tucker LEMUS Start: 07-Apr-2022 Comments: Patient will call when prescription refill is needed. Start: 01-15-2018 End: 11-16-2018 Start: 01-15-2018 End: 11-16-2018 take 1 tablet by mouth once daily in the evening Pramipexole 0.5 mg tablet Discontinued 0.5 mg PO EVERY EVENING 11 09February 23, 2018 8:26am November 16, 2018 11:31am Comment on above: Patient will call en prescription refill is needed. primidone 50 mg oral tablet (20 sources) Anti-epileptic Agent Start: 07-10-2022 End: 11-18-2022 Start: 07-10-2022 End: 11-18-2022 take 25 mg [...] August 24, 2019 4:02pm Start: 10-14-2018 End: 08-24-2019 Start: 10-14-2018 End: 04-27-2019 take 1 tablet by mouth twice daily Primidone 50 mg tablet Discontinued 50 mg PO TWICE A DAY 60 3 November 16, 2018 11:43am April 27, 2019 3:59pm primidone 50 mg tablet ; 1/2 daily (50 mg) Status: Inactive Comments: Neuro Comment on above: Neuro promethazine hydrochloride 25 mg oral tablet (20 sources) Phenothiazine Start: 01-15-2018 End: 11-16-2018 propylene glycol 6 mg/ml ophthalmic solution (20 sources) Start: 04-07-2022 End: 11-13-2022 Systane Complete 0.6 % eye drops ; 2 drops in both eyes Milliliter 3 times a day for 30 days Quantity: 10 {Milliliter} Refills: 11 Ordered: 13-Nov-2022 CAMDEN Thurman Start: 07-Apr-2022 End: 13-Nov-2022 Status: Inactive Comments: Patient will call when prescription refill is needed. Comment on above: Patient will call wh en prescription refill is needed. QUEtiapine 25 mg oral tablet (20 sources) Atypical Antipsychotic Start: 06-14-2024 End: 09-08-2024 Start: 04-23-2023 End: 07-21-2023 rivaroxaban 10 mg oral table t (20 sources) Factor Xa Inhibitor Start: 01-01-2018 End: 10-14-2018 sennosides, skilled nursing 8.6 mg oral tablet (20 sources) Start: 01-02-2018 End: 01-15-2018 Start: 01-02-2018 End: 01-15-2018 take 1 tablet by mouth twice daily as needed Sennosides (Mariangel-Neymar) 1 TABLET tablet Discontinued 1 {tbl} PO TWICE A DAY as needed for Constipation 0 January 02, 2018 12:00am January 15, 2018 1:25pm topiramate 25 mg oral tablet (20 sources) Start: 09-06-2019 End: 03-06-2021 traMADol hydrochloride 50 mg oral tablet (20 sources) Opioid Agonist Start: 06-27-2024 End: 02-19-2025 Start: 04-23-2022 End: 07-22-2022 take 0.5 tablet by mouth twice daily as needed for pain traMADoL 50 mg oral tablet ; 1/2 Tablet bid prn severe pain for 90 days Quantity: 90 {Tablet} Refills: 0 Ordered: 23-Apr-2022 Start: 23-Apr-2022 End: 22-Jul-2022 Status: Inactive Comments: This prescription expires 89 days from date of issue. Start: 02-11-2022 End: 2025 Start: 02-11-2022 End: 12-22-2024 Start: 02-11-2022 End: 07-12-2024 take 1 tablet by mouth every eight hours as needed for pain Tramadol 50 mg tablet Discontinued 50 mg PO Q8H as needed for Pain 30 20 July 07, 2024 1:03pm July 26, 2024 1:00am July 12, 2024 1:25pm Moved to [facility] 10. Comment on above: This prescription ex whit 89 days from date of issue. traZODone hydrochloride 100 mg oral tablet (20 sources) Serotonin Reuptake Inhibitor Start: 01-15-2018 End: 11-16-2018 Start: 01-15-2018 End: 11-16-2018 take 1 tablet by mouth at bedtime Trazodone 100 mg tablet Discontinued 100 mg PO AT BEDTIME February 23, 2018 8:26am November 16, 2018 11:31am triamcinolone acetonide 0.00 1 mg/mg topical ointment (20 sources) Corticosteroid Start: 05-30-2021 End: 07-10-2022 Start: 05-30-2021 End: 07-10-2022 Triamcinolone Acetonide 0.1 % ointment Discontinued 1 NMA TOPICAL DAILY May 30, 2021 1:00am December 13, 2021 4:21pm Triamcinolone Ac etonide 0.1 % External Cream ; 1 application daily as needed for dermatitis (0.1 %) Comments: Medication taken as needed. Comment on above: Medication taken as needed. (6 sources) Start: 07-19-2024 End: 02-14-2025 Start: 07-19-2024 Start: 04-23-2023 End: 07-19-2024 Start: 04-23-2023 End: 06-07-2024 Problems Active Problems Problem Classification Problem Date Documented Da te Episodic/Chronic Acute and unspecified renal failure (16 sources) Prerenal azotemia; Translations: [Unspecified kidney failure] 02-23-2022 Chronic Administrative/social admission (20 sources) Advance directive discussed with patient; Translations: [Other specified counseling] Onset: 3 05-14-2023 Episodic Comment on above: 05/14/23 Discussed A dvance Directives with pt. and son. Pt. has a Living Will and HCPOA. Anxiety disorders (20 sources) Anxiety; Translations: [Anxiety disorder, unspecified] 07-12-2022 Chronic Cardiac dysrhythmias (20 sources) Sinus bradycardia; Translations: [Bradycardia, unspecified] 02-23-2022 Episodic Conduction disorders (20 sources) Left bundle branch block; Translations: [Left [...] behavioral disturbance] Chronic Disorders of lipid metabolism (20 sources) Hyperlipidemia; Translations: [Hyperlipidemia, unspecified] Onset: 5 01-29-2018 Chronic E Codes: Fall (4 sources) Fall; Translations: [Unspecified fall, initial encounter] Episodic Esophageal disorders (20 sources) Gastroesophageal reflux disease; Translations: [Gastro-esophageal reflux disease without esophagitis] Chronic Essential hypertension (20 sources) Essential hypertension; Translations: [Essential (primary) hypertension] 05-14-2023 Chronic Fluid and electrolyte disorders (20 sources) Dehydration; Translations: [Dehydration] Episodic Fracture of neck of femur (hip) (20 sources) Closed fracture of hip; Translations: [Fracture [...] hemorrhage (20 sources) Melena; Translations: [Melena] Onset: 3 Episodic Genitourinary symptoms and ill-defined conditions (15 sources) Dysuria; Translations: [Dysuria] 04-05-2023 Episodic Immunizations and screening for infectious disease (20 sources) Needs influenza immunization; Translations: [Encounter for immunization] 05-14-2023 Episodic Inflammation; infection of eye (except that caused by tuberculosis or sexually transmitteddisease) (20 sources) Keratitis; Translations: [Photokeratitis, unspecified eye] 12-14-2019 Episodic Nonspecific chest pain (20 sources) Chest [...] level monitoring] 04-07-2022 Episodic Other circulatory disease (16 sources) Orthostatic hypotension; Translations: [Orthostatic hypotension] 02-23-2022 Episodic Other connective tissue disease (20 sources) Rhabdomyolysis; Translations: [Rhabdomyolysis] 01-01-2022 Episodic Other connective tissue disease (5 sources) Rhabdomyolysis; Translations: [Rhabdomyolysis] Episodic Other connective tissue disease (20 sources) Decreased muscle tone; Translations: [Other symptoms and signs involving the musculoskeletal system] 05-14-2023 Episodic Other eye disorders (20 sources) Dry eyes; Translations: [Dry eye syndrome of bilateral lacrimal glands] 04-07-2022 Episodic Other gastrointestinal disorders (20 sources) Therapeutic opioid induced constipation; 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 Other lower respiratory disease (13 sources) Cough; Translations: [Cough] 08-15-2023 Episodic Other lower respiratory disease (11 sources) Single lobe lung infiltrate; Translations: [Other nonspecific abnormal finding of lung field] 06-07-2024 Episodic Other nervous system disorders (20 sources) Disorder of brain; 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, unspecified] 12-21-2021 Chronic Other nervous system disorders (8 sources) Encephalopathy, unspecified; 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, unspecified] Chronic Other nervous system disorders (7 sources) Neuropathy; Translations: [Polyneuropathy, unspecified] 12-07-2024 Chronic Comment on above: Right foot Other nervous system disorders (2 sources) Difficulty in walking, not elsewhere classified; Translations: [Difficulty in walking, not elsewhere classified] Onset: Chronic Other nervous system disorders (20 sources) Impaired cognition; Translations: [Other symptoms and signs involving cognitive functions and awareness] 04-16-2023 Episodic Other nervous system disorders (20 sources) Other symptoms and signs involving cognitive functions and awareness; Translations: [Unspecified persistent mental disorders due to conditions classified elsewhere] Episodic Other non-traumatic joint disorders (20 sources) Pain in wrist; Translations: [Pain in left wrist] 10-14-2018 Episodic Other screening for suspected conditions (not mental disorders or infectious disease) (20 sources) CT of chest abnormal; Translations: [Abnormal findings on diagnostic imaging of other specified body structures] Onset: 09-09-2024 Chronic Other skin disorders (20 sources) Seborrheic keratosis; Translations: [Other seborrheic keratosis] 05-30-2021 Episodic Other upper respiratory disease (20 sources) Allergic rhinitis; Translations: [Allergic rhinitis, unspecified] 12-14-2021 Chronic Other upper respiratory disease (3 sources) Allergic rhinitis, unspecified; Translations: [Allergic rhinitis, cause unspecified] Chronic Other upper respiratory infections (20 sources) Nasal discharge; Translations: [Postnasal drip] 04-16-2023 Episodic Pneumonia (except that caused by tuberculosis or sexually transmitted disease) (6 sources) Community acquired pneumonia; Translations: [Pneumonia, unspecified organism] Onset: 02-14-2025 Episodic Residual codes; unclassified (20 sources) Insomnia; Translations: [Insomnia, unspecified] 12-14-2021 Episodic Residual codes; unclassified (3 sources) Insomnia, unspecified; Translations: [Insomnia, unspecified] Episodic Residual codes; unclassified (13 sources) Confusional state; Translations: [Disorientation, unspecified] 08-13-2023 Episodic Residual codes; unclassified (11 sources) Altered mental status; Translations: [Altered mental status, unspecified] 06-07-2024 Episodic Screening and history of mental health and substance abuse codes (11 sources) H/O: dementia; Translations: [Personal history of other mental and behavioral disorders] 06-07-2024 Episodic Spondylosis; intervertebral disc disorders; other back problems (20 sources) Low back pain; Translations: [Low back pain] Episodic Syncope (16 sources) Syncope and collapse; Translations: [Syncope and collapse] 02-23-2022 Episodic Urinary tract infections (20 sources) Acute urinary tract infection; Translations: [Urinary tract infection, site not specified] Episodic Viral infection (11 sources) Disease caused by 2019-nCoV; Translations: [COVID-19] 06-22-2024 Episodic Viral infection (1 source) COVID-19; Translations: [COVID-19] Onset: Past or Other Problems Problem Classification Problem Date Documented Date Episodic/Chronic Esophageal disorders (20 sources) Esophageal disorders 04-09-2022 Headache; including migraine (20 sources) Headache; including migraine 06-01-2023 Malaise and fatigue (20 sources) Fatigue; Translations: [Other fatigue] Onset: 06-21-2024 Episodic Other connective tissue disease (2 sources) Muscle wasting and atrophy, not elsewhere classified, right lower leg; Translations: [Muscle wasting and atrophy, not elsewhere classified, right lower leg] Onset: 08-26-2024 Episodic Other connective tissue disease (1 source) Muscle wasting and atrophy, not elsewhere classified, left lower leg; Translations: [Muscle wasting and atrophy, not elsewhere classified, left lower leg] Onset: 11-04-2024 Episodic Other lower respiratory disease (1 source) Other [...] if you have any questions. 11-18-2022 Unclassified (7 sources) Insomnia - The last clinic visit was 5 month(s) ago. Symptoms include difficulty staying asleep, while symptoms do not include daytime sleepiness. 11-13-2022 Unclassified (20 sources) [ADDITIONAL REASON] Osteoarthritis - The last clinic visit was 5 month(s) ago. Note for "Osteoarthritis": Feeling good now - no pain 11-13-2022 Unclassified (20 sources) [ADDITIONAL REASON] Alzheimer Disease - The [...] to further discuss the symptoms with the director sales and marketing.). You should call our office if you [...] (20 sources) Chest pain - Note for "Chest pain": Pt. reports intermittent chest pain x 2 [...] today Sat 91-92% room air. 06-30-2022 Unclassified (19 sources) Alzheimer Disease - The history is reported by a family member (Son Morgan here with pt.). 04-09-2022 Unclassified (20 sources) [ADDITIONAL REASON] Tremor, Essential - Symptoms include tremor, while symptoms do not include quavering voice. 04-09-2022 Unclassified (20 sources) [ADDITIONAL REASON] Back Pain - Note for "Back pain": Pt Would like refill of tramadol. Running out today. Unsure of what diagnosis to use? Family said that she takes it due to back pain/hip pain 04-09-2022 Unclassified (20 sources) [ADDITIONAL REASON] Restless leg syndrome - pt on medication for this dx. 04-09-2022 Unclassified (16 sources) [ADDITIONAL REASON] Insomnia - The last clinic visit was 5 month(s) ago. Symptoms include difficulty staying asleep, while symptoms do not include daytime sleepiness. 11-13-2022 Unclassified (1 source) Tremor, Essential - Symptoms include tremor, while symptoms do not include quavering voice. 04-09-2022 Unclassified (4 sources) [ADDITIONAL REASON] Alzheimer Disease - The history is reported by a family member (Sadiq Mora here with pt.). 04-09-2022 Unclassified (2 sources) Alzheimer Disease - The history is reported by a family member. The last clinic visit was 5 month(s) ago. Symptoms include poor memory (at times). 11-13-2022 Unclassified (1 source) Restless leg syndrome - pt on medication for this dx. 04-09-2022 Unclassified (1 source) Back Pain - Note for "Back pain": Pt Would like refill of tramadol. Running out today. Unsure of what diagnosis to use? Family said that she takes it due to back pain/hip pain 04-09-2022 Unclassified (1 source) Osteoarthritis - The last clinic visit was 5 month(s) ago. Note for "Osteoarthritis": Feeling good now - no pain 11-13-2022 Results Test Name Value Interpretation Reference Range Facility Basic Metabolic Profile (BMP )on 02-23-2025 BUN Normal -19 [facility] Comment on above: Result Comment: Canc elled via OM: Order cancelled - Patient discharged Performed By: #### L 500.2500, L100.0100 ####[facility] [address] [place], [address] BUN/CRE Normal 10-20 [facility] Comment on above: Result Comment: Canc elled via OM: Order cancelled - Patient discharged Performed By: #### L 500.2500, L100.0100 ####[facility] [address] [place], [address] Calcium Normal 7.6-11.0 [facility] Comment on above: Result Comment: Canc elled via OM: Order cancelled - Patient discharged Performed By: #### L 500.2500, L100.0100 ####[facility] [address] [place], [address] CL Normal 98-108 [facility] Comment on above: Result Comment: Canc elled via OM: Order cancelled - Patient discharged Performed By: #### L 500.2500, L100.0100 ####[facility] [address] [place], [address] CO2 Normal 21.0-32.0 [facility] Comment on above: Result Comment: Canc elled via OM: Order cancelled - Patient discharged Performed By: #### L 500.2500, L100.0100 ####[facility] [address] [place], [address] CREAT,SERUM Normal 0.70-1.20 [facility] Comment on above: Result Comment: Canc elled via OM: Order cancelled - Patient discharged Performed By: #### L 500.2500, L100.0100 ####[facility] [address] [place], [address] eGFR Normal >60 [facility] Comment on above: Result Comment: Canc elled via OM: Order cancelled - Patient discharged Performed By: #### L 500.2500, L100.0100 ####[facility] [address] [place], [address] GAP Normal 5-15 [facility] Comment on above: Result Comment: Canc elled via OM: Order cancelled - Patient discharged Performed By: #### L 500.2500, L100.0100 ####[facility] [address] [place], [address] GLU Normal 70-99 [facility] Comment on above: Result Comment: Canc elled via OM: Order cancelled - Patient discharged Performed By: #### L 500.2500, L100.0100 ####[facility] [address] [place], [address] Potassium Normal 3.3-5.1 [facility] Comment on above: Result Comment: Canc elled via OM: Order cancelled - Patient discharged Performed By: #### L 500.2500, L100.0100 ####[facility] [address] [place], [address] Basic Metabolic Profile (BMP) Normal 133-145 [facility] Comment on above: Result Comment: Canc elled via OM: Order cancelled - Patient discharged Performed By: #### L 500.2500, L100.0100 ####[facility] [address] [place], [address] CBC W/Diff, Automatedon 09-1 Absolute Neut Normal 2.0-7.7 [facility] Comment on above: Result Comment: Canc elled via OM: Order cancelled - Patient discharged Performed By: #### L 500.2500, L100.0100 ####[facility] [address] [place], [address] HCT Normal 37-47 [facility] Comment on above: Result Comment: Canc elled via OM: Order cancelled - Patient discharged Performed By: #### L 500.2500, L100.0100 ####[facility] [address] [place], [address] HGB Normal 12.0-15.0 [facility] Comment on above: Result Comment: Canc elled via OM: Order cancelled - Patient discharged Performed By: #### L 500.2500, L100.0100 ####[facility] [address] [place], [address] MCH Normal 27.0-32.0 [facility] Comment on above: Result Comment: Canc elled via OM: Order cancelled - Patient discharged Performed By: #### L 500.2500, L100.0100 ####[facility] [address] [place], [address] MCHC Normal 32-36 [facility] Comment on above: Result Comment: Canc elled via OM: Order cancelled - Patient discharged Performed By: #### L 500.2500, L100.0100 ####[facility] [address] [place], [address] MCV Normal 81-99 [facility] Comment on above: Result Comment: Canc elled via OM: Order cancelled - Patient discharged Performed By: #### L 500.2500, L100.0100 ####[facility] [address] [place], [address] NEUT% Normal 47-70 [facility] Comment on above: Result Comment: Canc elled via OM: Order cancelled - Patient discharged Performed By: #### L 500.2500, L100.0100 ####[facility] [address] [place], [address] PLT Normal 150-450 [facility] Comment on above: Result Comment: Canc elled via OM: Order cancelled - Patient discharged Performed By: #### L 500.2500, L100.0100 ####[facility] [address] [place], [address] RBC Normal 4.2-5.4 [facility] Comment on above: Result Comment: Canc elled via OM: Order cancelled - Patient discharged Performed By: #### L 500.2500, L100.0100 ####[facility] [address] [place], [address] RDW CV Normal 11.6-14.6 [facility] Comment on above: Result Comment: Canc elled via OM: Order cancelled - Patient discharged Performed By: #### L 500.2500, L100.0100 ####[facility] [address] [place], [address] RDW SD Normal 35.1-43.9 [facility] Comment on above: Result Comment: Canc elled via OM: Order cancelled - Patient discharged Performed By: #### L 500.2500, L100.0100 ####[facility] [address] [place], [address] WBC Normal 4.4-11.0 [facility] Comment on above: Result Comment: Canc elled via OM: Order cancelled - Patient discharged Performed By: #### L 500.2500, L100.0100 ####[facility] [address] [place], [address] Basic Metabolic Profile (BMP )on 02-22-2025 BUN Normal 4-19 [facility] Comment on above: Result Comment: Canc elled via OM: Order cancelled - Patient discharged Performed By: #### L 100.0100, L500.2500 ####[facility] [address] [place], [address] BUN/CRE Normal 10-20 [facility] Comment on above: Result Comment: Canc elled via OM: Order cancelled - Patient discharged Performed By: #### L 100.0100, L500.2500 ####[facility] [address] [place], [address] Calcium Normal 7.6-11.0 [facility] Comment on above: Result Comment: Canc elled via OM: Order cancelled - Patient discharged Performed By: #### L 100.0100, L500.2500 ####[facility] [address] [place], [address] CL Normal 98-108 [facility] Comment on above: Result Comment: Canc elled via OM: Order cancelled - Patient discharged Performed By: #### L 100.0100, L500.2500 ####[facility] [address] [place], [address] CO2 Normal 21.0-32.0 [facility] Comment on above: Result Comment: Canc elled via OM: Order cancelled - Patient discharged Performed By: #### L 100.0100, L500.2500 ####[facility] [address] [place], [address] CREAT,SERUM Normal 0.70-1.20 [facility] Comment on above: Result Comment: Canc elled via OM: Order cancelled - Patient discharged Performed By: #### L 100.0100, L500.2500 ####[facility] [address] [place], [address] eGFR Normal >60 [facility] Comment on above: Result Comment: Canc elled via OM: Order cancelled - Patient discharged Performed By: #### L 100.0100, L500.2500 ####[facility] [address] [place], [address] GAP Normal 5-15 [facility] Comment on above: Result Comment: Canc elled via OM: Order cancelled - Patient discharged Performed By: #### L 100.0100, L500.2500 ####[facility] [address] [place], [address] GLU Normal 70-99 [facility] Comment on above: Result Comment: Canc elled via OM: Order cancelled - Patient discharged Performed By: #### L 100.0100, L500.2500 ####[facility] [address] [place], [address] Potassium Normal 3.3-5.1 [facility] Comment on above: Result Comment: Canc elled via OM: Order cancelled - Patient discharged Performed By: #### L 100.0100, L500.2500 ####[facility] [address] [place], [address] Basic Metabolic Profile (BMP) Normal 133-145 [facility] Comment on above: Result Comment: Canc elled via OM: Order cancelled - Patient discharged Performed By: #### L 100.0100, L500.2500 ####[facility] [address] [place], [address] CBC W/Diff, Automatedon 09-1 0-2024 Absolute Neut Normal 2.0-7.7 [facility] Comment on above: Result Comment: Canc elled via OM: Order cancelled - Patient discharged Performed By: #### L 100.0100, L500.2500 ####[facility] [address] [place], [address] HCT Normal 37-47 [facility] Comment on above: Result Comment: Canc elled via OM: Order cancelled - Patient discharged Performed By: #### L 100.0100, L500.2500 ####[facility] [address] [place], [address] HGB Normal 12.0-15.0 [facility] Comment on above: Result Comment: Canc elled via OM: Order cancelled - Patient discharged Performed By: #### L 100.0100, L500.2500 ####[facility] [address] [place], [address] MCH Normal 27.0-32.0 [facility] Comment on above: Result Comment: Canc elled via OM: Order cancelled - Patient discharged Performed By: #### L 100.0100, L500.2500 ####[facility] [address] [place], [address] MCHC Normal 32-36 [facility] Comment on above: Result Comment: Canc elled via OM: Order cancelled - Patient discharged Performed By: #### L 100.0100, L500.2500 ####[facility] [address] [place], [address] MCV Normal 81-99 [facility] Comment on above: Result Comment: Canc elled via OM: Order cancelled - Patient discharged Performed By: #### L 100.0100, L500.2500 ####[facility] [address] [place], [address] NEUT% Normal 47-70 [facility] Comment on above: Result Comment: Canc elled via OM: Order cancelled - Patient discharged Performed By: #### L 100.0100, L500.2500 ####[facility] [address] [place], [address] PLT Normal 150-450 [facility] Comment on above: Result Comment: Canc elled via OM: Order cancelled - Patient discharged Performed By: #### L 100.0100, L500.2500 ####[facility] [address] [place], [address] RBC Normal 4.2-5.4 [facility] Comment on above: Result Comment: Canc elled via OM: Order cancelled - Patient discharged Performed By: #### L 100.0100, L500.2500 ####[facility] [address] [place], [address] RDW CV Normal 11.6-14.6 [facility] Comment on above: Result Comment: Canc elled via OM: Order cancelled - Patient discharged Performed By: #### L 100.0100, L500.2500 ####[facility] [address] [place], [address] RDW SD Normal 35.1-43.9 [facility] Comment on above: Result Comment: Canc elled via OM: Order cancelled - Patient discharged Performed By: #### L 100.0100, L500.2500 ####[facility] [address] [place], [address] WBC Normal 4.4-11.0 [facility] Comment on above: Result Comment: Canc elled via OM: Order cancelled - Patient discharged Performed By: #### L 100.0100, L500.2500 ####[facility] [address] [place], [address] Basic Metabolic Profile (BMP )on 02-21-2025 BUN Normal 4-19 [facility] Comment on above: Result Comment: Canc elled via OM: Order cancelled - Patient discharged Performed By: #### L 500.2500, L100.0100 ####[facility] [address] [place], [address] BUN/CRE Normal 10-20 [facility] Comment on above: Result Comment: Canc elled via OM: Order cancelled - Patient discharged Performed By: #### L 500.2500, L100.0100 ####[facility] [address] [place], [address] Calcium Normal 7.6-11.0 [facility] Comment on above: Result Comment: Canc elled via OM: Order cancelled - Patient discharged Performed By: #### L 500.2500, L100.0100 ####[facility] [address] [place], [address] CL Normal 98-108 [facility] Comment on above: Result Comment: Canc elled via OM: Order cancelled - Patient discharged Performed By: #### L 500.2500, L100.0100 ####[facility] [address] [place], [address] CO2 Normal 21.0-32.0 [facility] Comment on above: Result Comment: Canc elled via OM: Order cancelled - Patient discharged Performed By: #### L 500.2500, L100.0100 ####[facility] [address] [place], [address] CREAT,SERUM Normal 0.70-1.20 [facility] Comment on above: Result Comment: Canc elled via OM: Order cancelled - Patient discharged Performed By: #### L 500.2500, L100.0100 ####[facility] [address] [place], [address] eGFR Normal >60 [facility] Comment on above: Result Comment: Canc elled via OM: Order cancelled - Patient discharged Performed By: #### L 500.2500, L100.0100 ####[facility] [address] [place], [address] GAP Normal 5-15 [facility] Comment on above: Result Comment: Canc elled via OM: Order cancelled - Patient discharged Performed By: #### L 500.2500, L100.0100 ####[facility] [address] [place], [address] GLU Normal 70-99 [facility] Comment on above: Result Comment: Canc elled via OM: Order cancelled - Patient discharged Performed By: #### L 500.2500, L100.0100 ####[facility] [address] [place], [address] Potassium Normal 3.3-5.1 [facility] Comment on above: Result Comment: Canc elled via OM: Order cancelled - Patient discharged Performed By: #### L 500.2500, L100.0100 ####[facility] [address] [place], [address] Basic Metabolic Profile (BMP) Normal 133-145 [facility] Comment on above: Result Comment: Canc elled via OM: Order cancelled - Patient discharged Performed By: #### L 500.2500, L100.0100 ####[facility] [address] [place], [address] CBC W/Diff, Automatedon 09-0 9-2024 Absolute Neut Normal 2.0-7.7 [facility] Comment on above: Result Comment: Canc elled via OM: Order cancelled - Patient discharged Performed By: #### L 500.2500, L100.0100 ####[facility] [address] [place], [address] HCT Normal 37-47 [facility] Comment on above: Result Comment: Canc elled via OM: Order cancelled - Patient discharged Performed By: #### L 500.2500, L100.0100 ####[facility] [address] [place], [address] HGB Normal 12.0-15.0 [facility] Comment on above: Result Comment: Canc elled via OM: Order cancelled - Patient discharged Performed By: #### L 500.2500, L100.0100 ####[facility] [address] [place], [address] MCH Normal 27.0-32.0 [facility] Comment on above: Result Comment: Canc elled via OM: Order cancelled - Patient discharged Performed By: #### L 500.2500, L100.0100 ####[facility] [address] [place], [address] MCHC Normal 32-36 [facility] Comment on above: Result Comment: Canc elled via OM: Order cancelled - Patient discharged Performed By: #### L 500.2500, L100.0100 ####[facility] [address] [place], [address] MCV Normal 81-99 [facility] Comment on above: Result Comment: Canc elled via OM: Order cancelled - Patient discharged Performed By: #### L 500.2500, L100.0100 ####[facility] [address] [place], [address] NEUT% Normal 47-70 [facility] Comment on above: Result Comment: Canc elled via OM: Order cancelled - Patient discharged Performed By: #### L 500.2500, L100.0100 ####[facility] [address] [place], [address] PLT Normal 150-450 [facility] Comment on above: Result Comment: Canc elled via OM: Order cancelled - Patient discharged Performed By: #### L 500.2500, L100.0100 ####[facility] [address] [place], [address] RBC Normal 4.2-5.4 [facility] Comment on above: Result Comment: Canc elled via OM: Order cancelled - Patient discharged Performed By: #### L 500.2500, L100.0100 ####[facility] [address] [place], [address] RDW CV Normal 11.6-14.6 [facility] Comment on above: Result Comment: Canc elled via OM: Order cancelled - Patient discharged Performed By: #### L 500.2500, L100.0100 ####[facility] [address] [place], [address] RDW SD Normal 35.1-43.9 [facility] Comment on above: Result Comment: Canc elled via OM: Order cancelled - Patient discharged Performed By: #### L 500.2500, L100.0100 ####[facility] [address] [place], [address] WBC Normal 4.4-11.0 [facility] Comment on above: Result Comment: Canc elled via OM: Order cancelled - Patient discharged Performed By: #### L 500.2500, L100.0100 ####[facility] [address] [place], [address] Basic Metabolic Profile (BMP )on 02-20-2025 BUN Normal 4-19 [facility] Comment on above: Result Comment: Canc elled via OM: Order cancelled - Patient discharged Performed By: #### L 500.2500, L100.0100 ####[facility] [address] [place], [address] BUN/CRE Normal 10-20 [facility] Comment on above: Result Comment: Canc elled via OM: Order cancelled - Patient discharged Performed By: #### L 500.2500, L100.0100 ####[facility] [address] [place], [address] Calcium Normal 7.6-11.0 [facility] Comment on above: Result Comment: Canc elled via OM: Order cancelled - Patient discharged Performed By: #### L 500.2500, L100.0100 ####[facility] [address] [place], [address] CL Normal 98-108 [facility] Comment on above: Result Comment: Canc elled via OM: Order cancelled - Patient discharged Performed By: #### L 500.2500, L100.0100 ####[facility] [address] [place], [address] CO2 Normal 21.0-32.0 [facility] Comment on above: Result Comment: Canc elled via OM: Order cancelled - Patient discharged Performed By: #### L 500.2500, L100.0100 ####[facility] [address] [place], [address] CREAT,SERUM Normal 0.70-1.20 [facility] Comment on above: Result Comment: Canc elled via OM: Order cancelled - Patient discharged Performed By: #### L 500.2500, L100.0100 ####[facility] [address] [place], [address] eGFR Normal >60 [facility] Comment on above: Result Comment: Canc elled via OM: Order cancelled - Patient discharged Performed By: #### L 500.2500, L100.0100 ####[facility] [address] [place], [address] GAP Normal 5-15 [facility] Comment on above: Result Comment: Canc elled via OM: Order cancelled - Patient discharged Performed By: #### L 500.2500, L100.0100 ####[facility] [address] [place], [address] GLU Normal 70-99 [facility] Comment on above: Result Comment: Canc elled via OM: Order cancelled - Patient discharged Performed By: #### L 500.2500, L100.0100 ####[facility] [address] [place], [address] Potassium Normal 3.3-5.1 [facility] Comment on above: Result Comment: Canc elled via OM: Order cancelled - Patient discharged Performed By: #### L 500.2500, L100.0100 ####[facility] [address] [place], [address] Basic Metabolic Profile (BMP) Normal 133-145 [facility] Comment on above: Result Comment: Canc elled via OM: Order cancelled - Patient discharged Performed By: #### L 500.2500, L100.0100 ####[facility] [address] [place], [address] CBC W/Diff, Automatedon 09-0 8-2024 Absolute Neut Normal 2.0-7.7 [facility] Comment on above: Result Comment: Canc elled via OM: Order cancelled - Patient discharged Performed By: #### L 500.2500, L100.0100 ####[facility] [address] [place], [address] HCT Normal 37-47 [facility] Comment on above: Result Comment: Canc elled via OM: Order cancelled - Patient discharged Performed By: #### L 500.2500, L100.0100 ####[facility] [address] [place], [address] HGB Normal 12.0-15.0 [facility] Comment on above: Result Comment: Canc elled via OM: Order cancelled - Patient discharged Performed By: #### L 500.2500, L100.0100 ####[facility] [address] [place], [address] MCH Normal 27.0-32.0 [facility] Comment on above: Result Comment: Canc elled via OM: Order cancelled - Patient discharged Performed By: #### L 500.2500, L100.0100 ####[facility] [address] [place], [address] MCHC Normal 32-36 [facility] Comment on above: Result Comment: Canc elled via OM: Order cancelled - Patient discharged Performed By: #### L 500.2500, L100.0100 ####[facility] [address] [place], [address] MCV Normal 81-99 [facility] Comment on above: Result Comment: Canc elled via OM: Order cancelled - Patient discharged Performed By: #### L 500.2500, L100.0100 ####[facility] [address] [place], [address] NEUT% Normal 47-70 [facility] Comment on above: Result Comment: Canc elled via OM: Order cancelled - Patient discharged Performed By: #### L 500.2500, L100.0100 ####[facility] [address] [place], [address] PLT Normal 150-450 [facility] Comment on above: Result Comment: Canc elled via OM: Order cancelled - Patient discharged Performed By: #### L 500.2500, L100.0100 ####[facility] [address] [place], [address] RBC Normal 4.2-5.4 [facility] Comment on above: Result Comment: Canc elled via OM: Order cancelled - Patient discharged Performed By: #### L 500.2500, L100.0100 ####[facility] [address] [place], [address] RDW CV Normal 11.6-14.6 [facility] Comment on above: Result Comment: Canc elled via OM: Order cancelled - Patient discharged Performed By: #### L 500.2500, L100.0100 ####[facility] [address] [place], [address] RDW SD Normal 35.1-43.9 [facility] Comment on above: Result Comment: Canc elled via OM: Order cancelled - Patient discharged Performed By: #### L 500.2500, L100.0100 ####[facility] [address] [place], [address] WBC Normal 4.4-11.0 [facility] Comment on above: Result Comment: Canc elled via OM: Order cancelled - Patient discharged Performed By: #### L 500.2500, L100.0100 ####[facility] [address] [place], [address] Absolute lymphocyte countOrd ered By: Felicia Paniagua on 02-19-2025 Lymphocytes Auto (Unsp spec) [#/Vol] 1.51 10*3/uL 0.83-4.51 [facility] Anion gap in Serum or Plasma Ordered By: Felicia Paniagua on 02-19-2025 Anion gap [Moles/Vol] 11 mmol/L 5-15 [facility] Automated lymphocyte count a s percentage of total leukocytesOrdered By: Felicia Paniagua on 02-19-2025 Lymphocytes/100 WBC Auto (Unsp spec) 16.5 % Low 19-41 [facility] BUN/creatinine ratioOrdered By: Felicia Paniagua on 02-19-2025 Urea nitrogen/Creatinine [Mass ratio] 26.7 mg/mg High 10-20 [facility] Basic Metabolic Profile (BMP )on 02-19-2025 BUN/CRE 26.7 RATIO High 10-20 [facility] Comment on above: Performed By: #### L 500.2500, L100.0100 ####[facility] [address] [place], [address] Calcium [Mass/Vol] 9.1 mg/dL Normal 7.6-11.0 [facility] Comment on above: Performed By: #### L 500.2500, L100.0100 ####[facility] [address] [place], [address] Chloride [Moles/Vol] 106 mmol/L Normal 98-108 [facility] Comment on above: Performed By: #### L 500.2500, L100.0100 ####[facility] [address] [place], [address] CO2 [Moles/Vol] 23.0 mmol/L Normal 21.0-32.0 [facility] Comment on above: Performed By: #### L 500.2500, L100.0100 ####[facility] [address] [place], [address] Creatinine [Mass/Vol] 0.78 mg/dL Normal 0.70-1.20 [facility] Comment on above: Performed By: #### L 500.2500, L100.0100 ####[facility] [address] [place], [address] ECRCL 45.54 ml/min Low 50-250 [facility] Comment on above: Performed By: #### L 500.2500, L100.0100 ####[facility] [address] [place], [address] GAP 11 Normal 5-15 [facility] Comment on above: Performed By: #### L 500.2500, L100.0100 ####[facility] [address] [place], [address] GFR/1.73 sq M.predicted among non-blacks MDRD (S/P/Bld) [Vol rate/Area] 75 mL/min/{1.73_m2} Normal >60 [facility] Comment on above: Result Comment: mL/m in/1.73m2 CKD-EPI Creatinine Equation (2020) Performed By: #### L 500.2500, L100.0100 ####[facility] [address] [place], [address] Glucose [Mass/Vol] 102 mg/dL High 70-99 [facility] Comment on above: Performed By: #### L 500.2500, L100.0100 ####[facility] [address] [place], [address] Potassium [Moles/Vol] 3.9 mmol/L Normal 3.3-5.1 [facility] Comment on above: Performed By: #### L 500.2500, L100.0100 ####[facility] [address] [place], [address] Sodium [Moles/Vol] 139 mmol/L Normal 133-145 [facility] Comment on above: Performed By: #### L 500.2500, L100.0100 ####[facility] [address] [place], [address] Urea nitrogen [Mass/Vol] 21 mg/dL High 4-19 [facility] Comment on above: Performed By: #### L 500.2500, L100.0100 ####[facility] [address] [place], [address] Basophil percentageOrdered B y: Felicia Paniagua on 02-19-2025 Basophils/100 WBC (Bld) 0.3 % 0-1 [facility] CBC W/Diff, Automatedon Absolute Lymph 1.51 X10 3/uL Normal 0.83-4.51 [facility] Comment on above: Performed By: #### L 500.2500, L100.0100 ####[facility] [address] [place], [address] Absolute Neut 6.3 X10 3/uL Normal 2.0-7.7 [facility] Comment on above: Performed By: #### L 500.2500, L100.0100 ####[facility] [address] [place], [address] Basophils/100 WBC (Bld) 0.3 % Normal 0-1 [facility] Comment on above: Performed By: #### L 500.2500, L100.0100 ####[facility] [address] [place], [address] Eosinophils/100 WBC (Bld) 2.2 % Normal 0-5 [facility] Comment on above: Performed By: #### L 500.2500, L100.0100 ####[facility] [address] [place], [address] Erythrocyte distribution width (RBC) [Ratio] 15.8 % High 11.6-14.6 [facility] Comment on above: Performed By: #### L 500.2500, L100.0100 ####[facility] [address] [place], [address] Hematocrit (Bld) [Volume fraction] 35.0 % Low 37-47 [facility] Comment on above: Performed By: #### L 500.2500, L100.0100 ####[facility] [address] [place], [address] Hemoglobin (Bld) [Mass/Vol] 11.0 g/dL Low 12.0-15.0 [facility] Comment on above: Performed By: #### L 500.2500, L100.0100 ####[facility] [address] [place], [address] IG% 0.700 Normal 0.0-0.9 [facility] Comment on above: Result Comment: IG% - Immature Granulocytes (promyelocytes, myelocytes andmetamyelocytes) > 1% indicates that a LEFT SHIFT is Present. Performed By: #### L 500.2500, L100.0100 ####[facility] [address] [place], [address] Lymphocytes/100 WBC (Bld) 16.5 % Low 19-41 [facility] Comment on above: Performed By: #### L 500.2500, L100.0100 ####[facility] [address] [place], [address] MCH (RBC) [Entitic mass] 28.2 pg Normal 27.0-32.0 [facility] Comment on above: Performed By: #### L 500.2500, L100.0100 ####[facility] [address] [place], [address] MCHC (RBC) [Mass/Vol] 31.4 g/dL Low 32-36 [facility] Comment on above: Performed By: #### L 500.2500, L100.0100 ####[facility] [address] [place], [address] MCV (RBC) [Entitic vol] 89.7 fL Normal 81-99 [facility] Comment on above: Performed By: #### L 500.2500, L100.0100 ####[facility] [address] [place], [address] Monocytes/100 WBC (Bld) 11.2 % High 0-10 [facility] Comment on above: Performed By: #### L 500.2500, L100.0100 ####[facility] [address] [place], [address] Neutrophils/100 WBC (Bld) 69.1 % Normal 47-70 [facility] Comment on above: Performed By: #### L 500.2500, L100.0100 ####[facility] [address] [place], [address] Nucleated RBC (Bld) [#/Vol] 0 10*3/uL Normal 0-5 [facility] Comment on above: Performed By: #### L 500.2500, L100.0100 ####[facility] [address] [place], [address] Platelet mean volume (Bld) [Entitic vol] 8.8 fL Normal 6.2-12.0 [facility] Comment on above: Performed By: #### L 500.2500, L100.0100 ####[facility] [address] [place], [address] Platelets (Bld) [#/Vol] 312 10*3/uL Normal 150-450 [facility] Comment on above: Performed By: #### L 500.2500, L100.0100 ####[facility] [address] [place], [address] RBC (Bld) [#/Vol] 3.90 10*6/uL Low 4.2-5.4 [facility] Comment on above: Performed By: #### L 500.2500, L100.0100 ####[facility] [address] [place], [address] RDW SD 51.9 fl High 35.1-43.9 [facility] Comment on above: Performed By: #### L 500.2500, L100.0100 ####[facility] [address] [place], [address] WBC (Bld) [#/Vol] 9.1 10*3/uL Normal 4.4-11.0 [facility] Comment on above: Performed By: #### L 500.2500, L100.0100 ####[facility] [address] [place], [address] Carbon dioxide, total [Moles /volume] in Central venous bloodOrdered By: Felicia Paniagua on 02-19-2025 CO2 [Moles/Vol] 23.0 mmol/L 21.0-32.0 [facility] Chloride assayOrdered By: Na patel Paniagua on 02-19-2025 Chloride [Moles/Vol] 106 mmol/L 98-108 [facility] Discharge Instructionon 09-0 Discharge Instruction Normal [facility] Eosinophil percentageOrdered By: Felicia Paniagua on 02-19-2025 Eosinophils/100 WBC (Bld) 2.2 % 0-5 [facility] Erythrocyte distribution wid th ratioOrdered By: Felicia Paniagua on 02-19-2025 Erythrocyte distribution width (RBC) [Ratio] 15.8 % High 11.6-14.6 [facility] Erythrocyte distribution wid th standard deviationOrdered By: Felicia Paniagua on 02-19-2025 Erythrocyte distribution width (RBC) [Ratio] 51.9 fl High 35.1-43.9 [facility] Glomerular filtration rate ( GFR) estimation/1.73 sq m using serum, plasma, or whole bOrdered By: Felicia Paniagua on 02-19-2025 GFR/1.73 sq M.predicted among non-blacks MDRD (S/P/Bld) [Vol rate/Area] 75 mL/min/{1.73_m2} >60 [facility] Hematocrit Auto (Bld) [Volum e fraction]Ordered By: Felicia Paniagua on 02-19-2025 Hematocrit (Bld) [Volume fraction] 35.0 % Low 37-47 [facility] Hemoglobin measurementOrdere d By: Felicia Paniagua on 02-19-2025 Hemoglobin (Bld) [Mass/Vol] 11.0 g/dL Low 12.0-15.0 [facility] Immature granulocytes/100 WB C Auto (Bld)Ordered By: Felicia Paniagua on 02-19-2025 Immature granulocytes/100 WBC (Bld) 0.700 % 0.0-0.9 [facility] MCV (mean corpuscular volume ) determinationOrdered By: Felicia Paniagua on 02-19-2025 MCV (RBC) [Entitic vol] 89.7 fL 81-99 [facility] Mean corpuscular hemoglobin (MCH) determinationOrdered By: Felicia Paniagua on 02-19-2025 MCH (RBC) [Entitic mass] 28.2 pg 27.0-32.0 [facility] Monocyte percentageOrdered B y: Felicia Paniagua on 02-19-2025 Monocytes/100 WBC (Bld) 11.2 % High 0-10 [facility] Neutrophil percentageOrdered By: Felicia Paniagua on 02-19-2025 Neutrophils/100 WBC (Bld) 69.1 % 47-70 [facility] Platelet countOrdered By: Na na Arcelia on 02-19-2025 Platelets (Bld) [#/Vol] 312 10*3/uL 150-450 [facility] Potassium measurement (mass/ volume)Ordered By: Felicia Paniagua on 02-19-2025 Potassium (Unsp spec) [Mass/Vol] 3.9 mmol/L 3.3-5.1 [facility] RBC Auto (Bld) [#/Vol]Ordere d By: Felicia Paniagua on 02-19-2025 RBC (Bld) [#/Vol] 3.90 10*6/uL Low 4.2-5.4 [facility] Serum creatinine measurement (mass/volume)Ordered By: Felicia Paniagua on 02-19-2025 Creatinine [Mass/Vol] 0.78 mg/dL 0.70-1.20 [facility] Serum glucose measurement (m ass/volume)Ordered By: Felicia Paniagua on 02-19-2025 Glucose [Mass/Vol] 102 mg/dL High 70-99 [facility] Serum or plasma calcium candice urement (mass/volume)Ordered By: Felicia Paniagua on 02-19-2025 Calcium [Mass/Vol] 9.1 mg/dL 7.6-11.0 [facility] Serum or plasma urea nitroge n measurement (mass/volume)Ordered By: Felicia Paniagua on 02-19-2025 Urea nitrogen [Mass/Vol] 21 mg/dL High 4-19 [facility] Sodium levelOrdered By: Felicia Paniagua on 02-19-2025 Sodium [Moles/Vol] 139 mmol/L 133-145 [facility] White blood cell (WBC) count Ordered By: Felicia Paniagua on 02-19-2025 WBC (Bld) [#/Vol] 9.1 10*3/uL 4.4-11.0 [facility] Basic Metabolic Profile (BMP )on 02-18-2025 BUN/CRE 23.6 RATIO High 10-20 [facility] Comment on above: Order Comment: PATIE NT IS VERY AGGRESSIVE,PAN SILVA RN ASKED THAT WED WAKE HER. SPOKE TO JAY HANNAH, SHE WILL CALL ONCE PATIENTIS AWAKE AND WE ARE ABLE TO TRY HER Performed By: #### L 500.2500, L100.0100 ####[facility] [address] [place], [place], [id number] Calcium [Mass/Vol] 9.0 mg/dL Normal 7.6-11.0 [facility] Comment on above: Order Comment: PATIE NT IS VERY AGGRESSIVE,PAN SILVA RN ASKED THAT WAKE HER. SPOKE TO JAY HANNAH, SHE WILL CALL ONCE PATIENTIS AWAKE AND WE ARE ABLE TO TRY HER Performed By: #### L 500.2500, L100.0100 ####[facility] [address] [place], [address] Chloride [Moles/Vol] 105 mmol/L Normal 98-108 [facility] Comment on above: Order Comment: PATIE NT IS VERY AGGRESSIVE,PAN SILVA RN ASKED THAT WED[place] WAKE HER. SPOKE TO JAY RN, SHE WILL CALL ONCE PATIENTIS AWAKE AND WE ARE ABLE TO TRY HER Performed By: #### L 500.2500, L100.0100 ####[facility] [address] [place], [address] CO2 [Moles/Vol] 19.1 mmol/L Low 21.0-32.0 [facility] Comment on above: Order Comment: PATIE NT IS VERY AGGRESSIVE,PAN SILVA RN ASKED THAT [place] WAKE HER. SPOKE TO JAY RN, SHE WILL CALL ONCE PATIENTIS AWAKE AND WE ARE ABLE TO TRY HER Performed By: #### L 500.2500, L100.0100 ####[facility] [address] [place], [address] Creatinine [Mass/Vol] 0.77 mg/dL Normal 0.70-1.20 [facility] Comment on above: Order Comment: PATIE NT IS VERY AGGRESSIVE,PAN SILVA RN ASKED THAT W[place] WAKE HER. SPOKE TO JAY RN, SHE WILL CALL ONCE PATIENTIS AWAKE AND WE ARE ABLE TO TRY HER Performed By: #### L 500.2500, L100.0100 ####[facility] [address] [place], [address] ECRCL 45.54 ml/min Low 50-250 [facility] Comment on above: Order Comment: PATIE NT IS VERY AGGRESSIVE,PAN SILVA RN ASKED THAT [place] WAKE HER. SPOKE TO JAY RN, SHE WILL CALL ONCE PATIENTIS AWAKE AND WE ARE ABLE TO TRY HER Performed By: #### L 500.2500, L100.0100 ####[facility] [address] [place], [address] GAP 13 Normal 5-15 [facility] Comment on above: Order Comment: PATIE NT IS VERY AGGRESSIVE,PAN SILVA RN ASKED THAT WED[place] WAKE HER. SPOKE TO JAY RN, SHE WILL CALL ONCE PATIENTIS AWAKE AND WE ARE ABLE TO TRY HER Performed By: #### L 500.2500, L100.0100 ####[facility] [address] [place], [address] GFR/1.73 sq M.predicted among non-blacks MDRD (S/P/Bld) [Vol rate/Area] 76 mL/min/{1.73_m2} Normal >60 [facility] Comment on above: Order Comment: PATIE NT IS VERY AGGRESSIVE,PAN SILVA RN ASKED THAT [place] WAKE HER. SPOKE TO JAY RN, SHE WILL CALL ONCE PATIENTIS AWAKE AND WE ARE ABLE TO TRY HER Result Comment: mL/m in/1.73m2 CKD-EPI Creatinine Equation (2020) Performed By: #### L 500.2500, L100.0100 ####[facility] [address] [place], [address] Glucose [Mass/Vol] 141 mg/dL High 70-99 [facility] Comment on above: Order Comment: PATIE NT IS VERY AGGRESSIVE,PAN SILVA RN ASKED THAT [place] WAKE HER. SPOKE TO JAY RN, SHE WILL CALL ONCE PATIENTIS AWAKE AND WE ARE ABLE TO TRY HER Performed By: #### L 500.2500, L100.0100 ####[facility] [address] [place], [address] Potassium [Moles/Vol] 4.0 mmol/L Normal 3.3-5.1 [facility] Comment on above: Order Comment: PATIE NT IS VERY AGGRESSIVE,PAN SILVA RN ASKED THAT [place] WAKE HER. SPOKE TO JAY RN, SHE WILL CALL ONCE PATIENTIS AWAKE AND WE ARE ABLE TO TRY HER Performed By: #### L 500.2500, L100.0100 ####[facility] [address] [place] [place], [address] Sodium [Moles/Vol] 137 mmol/L Normal 133-145 [facility] Comment on above: Order Comment: PATIE NT IS VERY AGGRESSIVE,PAN SILVA RN ASKED THAT [place] WAKE HER. SPOKE TO JAY RN, SHE WILL CALL ONCE PATIENTIS AWAKE AND WE ARE ABLE TO TRY HER Performed By: #### L 500.2500, L100.0100 ####[facility] [address] [place], [address] Urea nitrogen [Mass/Vol] 18 mg/dL Normal 4-19 [facility] Comment on above: Order Comment: PATIE NT IS VERY AGGRESSIVE,PAN SILVA RN ASKED THAT [place] WAKE HER. SPOKE TO JAY RN, SHE WILL CALL ONCE PATIENTIS AWAKE AND WE ARE ABLE TO TRY HER Performed By: #### L 500.2500, L100.0100 ####[facility] [address] [place], [address] CBC W/Diff, Automatedon 09-0 6-2024 Absolute Lymph 1.13 X10 3/uL Normal 0.83-4.51 [facility] Comment on above: Order Comment: PATIE NT IS VERY AGGRESSIVE,PAN SILVA RN ASKED THAT [place] WAKE HER. SPOKE TO JAY RN, SHE WILL CALL ONCE PATIENTIS AWAKE AND WE ARE ABLE TO TRY HER Performed By: #### L 500.2500, L100.0100 ####[facility] [address] [place], [address] Absolute Neut 5.5 X10 3/uL Normal 2.0-7.7 [facility] Comment on above: Order Comment: PATIE NT IS VERY AGGRESSIVE,PAN SILVA RN ASKED THAT [place] WAKE HER. SPOKE TO JAY RN, SHE WILL CALL ONCE PATIENTIS AWAKE AND WE ARE ABLE TO TRY HER Performed By: #### L 500.2500, L100.0100 ####[facility] [address] [place], [address] Basophils/100 WBC (Bld) 0.4 % Normal 0-1 [facility] Comment on above: Order Comment: PATIE NT IS VERY AGGRESSIVE,PAN SILVA RN ASKED THAT [place] WAKE HER. SPOKE TO JAY RN, SHE WILL CALL ONCE PATIENTIS AWAKE AND WE ARE ABLE TO TRY HER Performed By: #### L 500.2500, L100.0100 ####[facility] [address] [place], [address] Eosinophils/100 WBC (Bld) 2.0 % Normal 0-5 [facility] Comment on above: Order Comment: PATIE NT IS VERY AGGRESSIVE,PAN SILVA RN ASKED THAT [place] WAKE HER. SPOKE TO JAY RN, SHE WILL CALL ONCE PATIENTIS AWAKE AND WE ARE ABLE TO TRY HER Performed By: #### L 500.2500, L100.0100 ####[facility] [address] [place], [address] Erythrocyte distribution width (RBC) [Ratio] 15.9 % High 11.6-14.6 [facility] Comment on above: Order Comment: PATIE NT IS VERY AGGRESSIVE,PAN SILVA RN ASKED THAT [place] WAKE HER. SPOKE TO JAY RN, SHE WILL CALL ONCE PATIENTIS AWAKE AND WE ARE ABLE TO TRY HER Performed By: #### L 500.2500, L100.0100 ####[facility] [address] [place], [address] Hematocrit (Bld) [Volume fraction] 37.0 % Normal 37-47 [facility] Comment on above: Order Comment: PATIE NT IS VERY AGGRESSIVE,PAN SILVA RN ASKED THAT [place] WAKE HER. SPOKE TO JAY RN, SHE WILL CALL ONCE PATIENTIS AWAKE AND WE ARE ABLE TO TRY HER Performed By: #### L 500.2500, L100.0100 ####[facility] [address] [place], [address] Hemoglobin (Bld) [Mass/Vol] 11.7 g/dL Low 12.0-15.0 [facility] Comment on above: Order Comment: PATIE NT IS VERY AGGRESSIVE,PAN SILVA RN ASKED THAT [place] WAKE HER. SPOKE TO JAY RN, SHE WILL CALL ONCE PATIENTIS AWAKE AND WE ARE ABLE TO TRY HER Performed By: #### L 500.2500, L100.0100 ####[facility] [address] [place], [address] IG% 0.700 Normal 0.0-0.9 [facility] Comment on above: Order Comment: PATIE NT IS VERY AGGRESSIVE,PAN SILVA RN ASKED THAT [place] WAKE HER. SPOKE TO JAY RN, SHE WILL CALL ONCE PATIENTIS AWAKE AND WE ARE ABLE TO TRY HER Result Comment: IG% - Immature Granulocytes (promyelocytes, myelocytes andmetamyelocytes) > 1% indicates that a LEFT SHIFT is Present. Performed By: #### L 500.2500, L100.0100 ####[facility] [address] [place], [address] Lymphocytes/100 WBC (Bld) 14.7 % Low 19-41 [facility] Comment on above: Order Comment: PATIE NT IS VERY AGGRESSIVE,PAN SILVA RN ASKED THAT [place] HER. SPOKE TO JAY RN, SHE WILL CALL ONCE PATIENTIS AWAKE AND WE ARE ABLE TO TRY HER Performed By: #### L 500.2500, L100.0100 ####[facility] [address] [place], [address] MCH (RBC) [Entitic mass] 28.2 pg Normal 27.0-32.0 [facility] Comment on above: Order Comment: PATIE NT IS VERY AGGRESSIVE,PAN SILVA RN ASKED THAT [place] WAKE HER. SPOKE TO JAY RN, SHE WILL CALL ONCE PATIENTIS AWAKE AND WE ARE ABLE TO TRY HER Performed By: #### L 500.2500, L100.0100 ####[facility] [address] [place], [address] MCHC (RBC) [Mass/Vol] 31.6 g/dL Low 32-36 [facility] Comment on above: Order Comment: PATIE NT IS VERY AGGRESSIVE,PAN ISLVA RN ASKED THAT [place] WAKE HER. SPOKE TO JAY HANNAH, SHE WILL CALL ONCE PATIENTIS AWAKE AND WE ARE ABLE TO TRY HER Performed By: #### L 500.2500, L100.0100 ####[facility] [address] [place], [address] MCV (RBC) [Entitic vol] 89.2 fL Normal 81-99 [facility] Comment on above: Order Comment: PATIE NT IS VERY AGGRESSIVE,PAN SILVA RN ASKED THAT [place] HER. SPOKE TO JAY RN, SHE WILL CALL ONCE PATIENTIS AWAKE AND WE ARE ABLE TO TRY HER Performed By: #### L 500.2500, L100.0100 ####[facility] [address] [place], [address] Monocytes/100 WBC (Bld) 10.8 % High 0-10 [facility] Comment on above: Order Comment: PATIE NT IS VERY AGGRESSIVE,PAN SILVA RN ASKED THAT [place] HER. SPOKE TO JAY RN, SHE WILL CALL ONCE PATIENTIS AWAKE AND WE ARE ABLE TO TRY HER Performed By: #### L 500.2500, L100.0100 ####[facility] [address] [place], [address] Neutrophils/100 WBC (Bld) 71.4 % High 47-70 [facility] Comment on above: Order Comment: PATIE NT IS VERY AGGRESSIVE,PAN SILVA RN ASKED THAT [place] HER. SPOKE TO JAY RN, SHE WILL CALL ONCE PATIENTIS AWAKE AND WE ARE ABLE TO TRY HER Performed By: #### L 500.2500, L100.0100 ####[facility] [address] [place], [address] Nucleated RBC (Bld) [#/Vol] 0 10*3/uL Normal 0-5 [facility] Comment on above: Order Comment: PATIE NT IS VERY AGGRESSIVE,PAN SILVA RN ASKED THAT [place] HER. SPOKE TO JAY RN, SHE WILL CALL ONCE PATIENTIS AWAKE AND WE ARE ABLE TO TRY HER Performed By: #### L 500.2500, L100.0100 ####[facility] [address] [place], [address] Platelet mean volume (Bld) [Entitic vol] 8.7 fL Normal 6.2-12.0 [facility] Comment on above: Order Comment: PATIE NT IS VERY AGGRESSIVE,PAN SILVA RN ASKED THAT [place] HER. SPOKE TO JAY RN, SHE WILL CALL ONCE PATIENTIS AWAKE AND WE ARE ABLE TO TRY HER Performed By: #### L 500.2500, L100.0100 ####[facility] [address] [place], [address] Platelets (Bld) [#/Vol] 338 10*3/uL Normal 150-450 [facility] Comment on above: Order Comment: PATIE NT IS VERY AGGRESSIVE,PAN SILVA RN ASKED THAT [place] HER. SPOKE TO JAY RN, SHE WILL CALL ONCE PATIENTIS AWAKE AND WE ARE ABLE TO TRY HER Performed By: #### L 500.2500, L100.0100 ####[facility] [address] [place], [address] RBC (Bld) [#/Vol] 4.15 10*6/uL Low 4.2-5.4 [facility] Comment on above: Order Comment: PATIE NT IS VERY AGGRESSIVE,PAN SILVA RN ASKED THAT [place] HER. SPOKE TO JAY RN, SHE WILL CALL ONCE PATIENTIS AWAKE AND WE ARE ABLE TO TRY HER Performed By: #### L 500.2500, L100.0100 ####[facility] [address] [place], [address] RDW SD 52.6 fl High 35.1-43.9 [facility] Comment on above: Order Comment: PATIE NT IS VERY AGGRESSIVE,PAN SILVA RN ASKED THAT [place] HER. SPOKE TO JAY RN, SHE WILL CALL ONCE PATIENTIS AWAKE AND WE ARE ABLE TO TRY HER Performed By: #### L 500.2500, L100.0100 ####[facility] [address] [place], [address] WBC (Bld) [#/Vol] 7.7 10*3/uL Normal 4.4-11.0 [facility] Comment on above: Order Comment: OZIEL NT IS VERY AGGRESSIVE,PAN SILVA RN ASKED THAT [place] WAKE HER. SPOKE TO JAY RN, SHE WILL CALL ONCE PATIENTIS AWAKE AND WE ARE ABLE TO TRY HER Performed By: #### L 500.2500, L100.0100 ####[facility] [address] [place], [address] Basic Metabolic Profile (BMP )on 02-17-2025 BUN/CRE 23.8 RATIO High 10-20 [facility] Comment on above: Performed By: #### L 100.0100, L500.2500 ####[facility] [address] [place], [address] Calcium [Mass/Vol] 9.1 mg/dL Normal 7.6-11.0 [facility] Comment on above: Performed By: #### L 100.0100, L500.2500 ####[facility] [address] [place], [address] Chloride [Moles/Vol] 108 mmol/L Normal 98-108 [facility] Comment on above: Performed By: #### L 100.0100, L500.2500 ####[facility] [address] [place], [address] CO2 [Moles/Vol] 21.0 mmol/L Normal 21.0-32.0 [facility] Comment on above: Performed By: #### L 100.0100, L500.2500 ####[facility] [address] [place], [address] Creatinine [Mass/Vol] 0.69 mg/dL Low 0.70-1.20 [facility] Comment on above: Performed By: #### L 100.0100, L500.2500 ####[facility] [address] [place], [address] ECRCL 45.54 ml/min Low 50-250 [facility] Comment on above: Performed By: #### L 100.0100, L500.2500 ####[facility] [address] [place], [address] GAP 11 Normal 5-15 [facility] Comment on above: Performed By: #### L 100.0100, L500.2500 ####[facility] [address] [place], [address] GFR/1.73 sq M.predicted among non-blacks MDRD (S/P/Bld) [Vol rate/Area] 86 mL/min/{1.73_m2} Normal >60 [facility] Comment on above: Result Comment: mL/m in/1.73m2 CKD-EPI Creatinine Equation (2020) Performed By: #### L 100.0100, L500.2500 ####[facility] [address] [place], [address] Glucose [Mass/Vol] 112 mg/dL High 70-99 [facility] Comment on above: Performed By: #### L 100.0100, L500.2500 ####[facility] [address] [place], [address] Potassium [Moles/Vol] 3.7 mmol/L Normal 3.3-5.1 [facility] Comment on above: Performed By: #### L 100.0100, L500.2500 ####[facility] [address] [place], [address] Sodium [Moles/Vol] 141 mmol/L Normal 133-145 [facility] Comment on above: Performed By: #### L 100.0100, L500.2500 ####[facility] [address] [place], [address] Urea nitrogen [Mass/Vol] 16 mg/dL Normal 4-19 [facility] Comment on above: Performed By: #### L 100.0100, L500.2500 ####[facility] [address] [place], [address] CBC W/Diff, Automatedon 09-0 5-2024 Absolute Lymph 1.55 X10 3/uL Normal 0.83-4.51 [facility] Comment on above: Performed By: #### L 100.0100, L500.2500 ####[facility] [address] [place], [address] Absolute Neut 4.6 X10 3/uL Normal 2.0-7.7 [facility] Comment on above: Performed By: #### L 100.0100, L500.2500 ####[facility] [address] [place], [address] Basophils/100 WBC (Bld) 0.4 % Normal 0-1 [facility] Comment on above: Performed By: #### L 100.0100, L500.2500 ####[facility] [address] [place], [address] Eosinophils/100 WBC (Bld) 3.1 % Normal 0-5 [facility] Comment on above: Performed By: #### L 100.0100, L500.2500 ####[facility] [address] [place], [address] Erythrocyte distribution width (RBC) [Ratio] 15.9 % High 11.6-14.6 [facility] Comment on above: Performed By: #### L 100.0100, L500.2500 ####[facility] [address] [place], [address] Hematocrit (Bld) [Volume fraction] 35.4 % Low 37-47 [facility] Comment on above: Performed By: #### L 100.0100, L500.2500 ####[facility] [address] [place], [address] Hemoglobin (Bld) [Mass/Vol] 11.3 g/dL Low 12.0-15.0 [facility] Comment on above: Performed By: #### L 100.0100, L500.2500 ####[facility] [address] [place], [address] IG% 0.500 Normal 0.0-0.9 [facility] Comment on above: Result Comment: IG% - Immature Granulocytes (promyelocytes, myelocytes andmetamyelocytes) > 1% indicates that a LEFT SHIFT is Present. Performed By: #### L 100.0100, L500.2500 ####[facility] [address] [place], [address] Lymphocytes/100 WBC (Bld) 21.0 % Normal 19-41 [facility] Comment on above: Performed By: #### L 100.0100, L500.2500 ####[facility] [address] [place], [address] MCH (RBC) [Entitic mass] 28.3 pg Normal 27.0-32.0 [facility] Comment on above: Performed By: #### L 100.0100, L500.2500 ####[facility] [address] [place], [address] MCHC (RBC) [Mass/Vol] 31.9 g/dL Low 32-36 [facility] Comment on above: Performed By: #### L 100.0100, L500.2500 ####[facility] [address] [place], [address] MCV (RBC) [Entitic vol] 88.7 fL Normal 81-99 [facility] Comment on above: Performed By: #### L 100.0100, L500.2500 ####[facility] [address] [place], [address] Monocytes/100 WBC (Bld) 13.3 % High 0-10 [facility] Comment on above: Performed By: #### L 100.0100, L500.2500 ####[facility] [address] [place], [address] Neutrophils/100 WBC (Bld) 61.7 % Normal 47-70 [facility] Comment on above: Performed By: #### L 100.0100, L500.2500 ####[facility] [address] [place], [address] Nucleated RBC (Bld) [#/Vol] 0 10*3/uL Normal 0-5 [facility] Comment on above: Performed By: #### L 100.0100, L500.2500 ####[facility] [address] [place], [address] Platelet mean volume (Bld) [Entitic vol] 9.1 fL Normal 6.2-12.0 [facility] Comment on above: Performed By: #### L 100.0100, L500.2500 ####[facility] [address] [place], [address] Platelets (Bld) [#/Vol] 316 10*3/uL Normal 150-450 [facility] Comment on above: Performed By: #### L 100.0100, L500.2500 ####[facility] [address] [place], [address] RBC (Bld) [#/Vol] 3.99 10*6/uL Low 4.2-5.4 [facility] Comment on above: Performed By: #### L 100.0100, L500.2500 ####[facility] [address] [place], [address] RDW SD 52.5 fl High 35.1-43.9 [facility] Comment on above: Performed By: #### L 100.0100, L500.2500 ####[facility] [address] [place], [address] WBC (Bld) [#/Vol] 7.4 10*3/uL Normal 4.4-11.0 [facility] Comment on above: Performed By: #### L 100.0100, L500.2500 ####[facility] [address] [place], [address] Basic Metabolic Profile (BMP )on 02-16-2025 BUN/CRE 23.8 RATIO High 10-20 [facility] Comment on above: Performed By: #### L 500.2500, L100.0100 ####[facility] [address] [place], [address] Calcium [Mass/Vol] 9.4 mg/dL Normal 7.6-11.0 [facility] Comment on above: Performed By: #### L 500.2500, L100.0100 ####[facility] [address] [place], [address] Chloride [Moles/Vol] 104 mmol/L Normal 98-108 [facility] Comment on above: Performed By: #### L 500.2500, L100.0100 ####[facility] [address] [place], [address] CO2 [Moles/Vol] 22.7 mmol/L Normal 21.0-32.0 [facility] Comment on above: Performed By: #### L 500.2500, L100.0100 ####[facility] [address] [place], [address] Creatinine [Mass/Vol] 0.88 mg/dL Normal 0.70-1.20 [facility] Comment on above: Performed By: #### L 500.2500, L100.0100 ####[facility] [address] [place], [address] ECRCL 41.40 ml/min Low 50-250 [facility] Comment on above: Performed By: #### L 500.2500, L100.0100 ####[facility] [address] [place], [address] GAP 13 Normal 5-15 [facility] Comment on above: Performed By: #### L 500.2500, L100.0100 ####[facility] [address] [place], [address] GFR/1.73 sq M.predicted among non-blacks MDRD (S/P/Bld) [Vol rate/Area] 65 mL/min/{1.73_m2} Normal >60 [facility] Comment on above: Result Comment: mL/m in/1.73m2 CKD-EPI Creatinine Equation (2020) Performed By: #### L 500.2500, L100.0100 ####[facility] [address] [place], [address] Glucose [Mass/Vol] 134 mg/dL High 70-99 [facility] Comment on above: Performed By: #### L 500.2500, L100.0100 ####[facility] [address] [place], [address] Potassium [Moles/Vol] 3.7 mmol/L Normal 3.3-5.1 [facility] Comment on above: Performed By: #### L 500.2500, L100.0100 ####[facility] [address] [place], [address] Sodium [Moles/Vol] 139 mmol/L Normal 133-145 [facility] Comment on above: Performed By: #### L 500.2500, L100.0100 ####[facility] [address] [place], [address] Urea nitrogen [Mass/Vol] 21 mg/dL High 4-19 [facility] Comment on above: Performed By: #### L 500.2500, L100.0100 ####[facility] [address] [place], [address] CBC W/Diff, Automatedon 09-0 4-2024 Absolute Lymph 1.16 X10 3/uL Normal 0.83-4.51 [facility] Comment on above: Performed By: #### L 500.2500, L100.0100 ####[facility] [address] [place], [address] Absolute Neut 5.3 X10 3/uL Normal 2.0-7.7 [facility] Comment on above: Performed By: #### L 500.2500, L100.0100 ####[facility] [address] [place], [address] Basophils/100 WBC (Bld) 0.3 % Normal 0-1 [facility] Comment on above: Performed By: #### L 500.2500, L100.0100 ####[facility] [address] [place], [address] Eosinophils/100 WBC (Bld) 2.3 % Normal 0-5 [facility] Comment on above: Performed By: #### L 500.2500, L100.0100 ####[facility] [address] [place], [address] Erythrocyte distribution width (RBC) [Ratio] 16.4 % High 11.6-14.6 [facility] Comment on above: Performed By: #### L 500.2500, L100.0100 ####[facility] [address] [place], [address] Hematocrit (Bld) [Volume fraction] 38.3 % Normal 37-47 [facility] Comment on above: Performed By: #### L 500.2500, L100.0100 ####[facility] [address] [place], [address] Hemoglobin (Bld) [Mass/Vol] 12.0 g/dL Normal 12.0-15.0 [facility] Comment on above: Performed By: #### L 500.2500, L100.0100 ####[facility] [address] [place], [address] IG% 0.600 Normal 0.0-0.9 [facility] Comment on above: Result Comment: IG% - Immature Granulocytes (promyelocytes, myelocytes andmetamyelocytes) > 1% indicates that a LEFT SHIFT is Present. Performed By: #### L 500.2500, L100.0100 ####[facility] [address] [place], [address] Lymphocytes/100 WBC (Bld) 14.9 % Low 19-41 [facility] Comment on above: Performed By: #### L 500.2500, L100.0100 ####[facility] [address] [place], [address] MCH (RBC) [Entitic mass] 28.1 pg Normal 27.0-32.0 [facility] Comment on above: Performed By: #### L 500.2500, L100.0100 ####[facility] [address] [place], [address] MCHC (RBC) [Mass/Vol] 31.3 g/dL Low 32-36 [facility] Comment on above: Performed By: #### L 500.2500, L100.0100 ####[facility] [address] [place], [address] MCV (RBC) [Entitic vol] 89.7 fL Normal 81-99 [facility] Comment on above: Performed By: #### L 500.2500, L100.0100 ####[facility] [facility] [address] [place], [address] Monocytes/100 WBC (Bld) 14.1 % High 0-10 [facility] Comment on above: Performed By: #### L 500.2500, L100.0100 ####[facility] [address] [place], [address] Neutrophils/100 WBC (Bld) 67.8 % Normal 47-70 [facility] Comment on above: Performed By: #### L 500.2500, L100.0100 ####[facility] [address] [place], [address] Nucleated RBC (Bld) [#/Vol] 0 10*3/uL Normal 0-5 [facility] Comment on above: Performed By: #### L 500.2500, L100.0100 ####[facility] [address] [place], [address] Platelet mean volume (Bld) [Entitic vol] 8.9 fL Normal 6.2-12.0 [facility] Comment on above: Performed By: #### L 500.2500, L100.0100 ####[facility] [address] [place], [address] Platelets (Bld) [#/Vol] 328 10*3/uL Normal 150-450 [facility] Comment on above: Performed By: #### L 500.2500, L100.0100 ####[facility] [address] [place], [address] RBC (Bld) [#/Vol] 4.27 10*6/uL Normal 4.2-5.4 [facility] Comment on above: Performed By: #### L 500.2500, L100.0100 ####[facility] [address] [place], [address] RDW SD 53.4 fl High 35.1-43.9 [facility] Comment on above: Performed By: #### L 500.2500, L100.0100 ####[facility] [address] [place], [address] WBC (Bld) [#/Vol] 7.8 10*3/uL Normal 4.4-11.0 [facility] Comment on above: Performed By: #### L 500.2500, L100.0100 ####[facility] [address] [place], [address] Basic Metabolic Profile (BMP )on 02-15-2025 BUN/CRE 17.5 RATIO Normal 10-20 [facility] Comment on above: Performed By: #### L 500.2500, L100.0100 ####[facility] [address] [place], [address] Calcium [Mass/Vol] 8.9 mg/dL Normal 7.6-11.0 [facility] Comment on above: Performed By: #### L 500.2500, L100.0100 ####[facility] [address] [place], [address] Chloride [Moles/Vol] 103 mmol/L Normal 98-108 [facility] Comment on above: Performed By: #### L 500.2500, L100.0100 ####[facility] [address] [place], [address] CO2 [Moles/Vol] 21.1 mmol/L Normal 21.0-32.0 [facility] Comment on above: Performed By: #### L 500.2500, L100.0100 ####[facility] [address] [place], [address] Creatinine [Mass/Vol] 0.94 mg/dL Normal 0.70-1.20 [facility] Comment on above: Performed By: #### L 500.2500, L100.0100 ####[facility] [address] [place], [address] ECRCL 38.76 ml/min Low 50-250 [facility] Comment on above: Performed By: #### L 500.2500, L100.0100 ####[facility] [address] [place], [address] GAP 13 Normal 5-15 [facility] Comment on above: Performed By: #### L 500.2500, L100.0100 ####[facility] [address] [place], [address] GFR/1.73 sq M.predicted among non-blacks MDRD (S/P/Bld) [Vol rate/Area] 60 mL/min/{1.73_m2} Normal >60 [facility] Comment on above: Result Comment: mL/m in/1.73m2 CKD-EPI Creatinine Equation (2020) Performed By: #### L 500.2500, L100.0100 ####[facility] [address] [place], [address] Glucose [Mass/Vol] 82 mg/dL Normal 70-99 [facility] Comment on above: Performed By: #### L 500.2500, L100.0100 ####[facility] [address] [place], [address] Potassium [Moles/Vol] 3.6 mmol/L Normal 3.3-5.1 [facility] Comment on above: Performed By: #### L 500.2500, L100.0100 ####[facility] [address] [place], [address] Sodium [Moles/Vol] 137 mmol/L Normal 133-145 [facility] Comment on above: Performed By: #### L 500.2500, L100.0100 ####[facility] [address] [place], [address] Urea nitrogen [Mass/Vol] 17 mg/dL Normal 4-19 [facility] Comment on above: Performed By: #### L 500.2500, L100.0100 ####[facility] [address] [place], [address] CBC W/Diff, Automatedon 09-0 Absolute Lymph 1.30 X10 3/uL Normal 0.83-4.51 [facility] Comment on above: Performed By: #### L 500.2500, L100.0100 ####[facility] [address] [place], [address] Absolute Neut 5.0 X10 3/uL Normal 2.0-7.7 [facility] Comment on above: Performed By: #### L 500.2500, L100.0100 ####[facility] [address] [place], [address] Basophils/100 WBC (Bld) 0.4 % Normal 0-1 [facility] Comment on above: Performed By: #### L 500.2500, L100.0100 ####[facility] [address] [place], [address] Eosinophils/100 WBC (Bld) 1.8 % Normal 0-5 [facility] Comment on above: Performed By: #### L 500.2500, L100.0100 ####[facility] [address] [place], [address] Erythrocyte distribution width (RBC) [Ratio] 16.4 % High 11.6-14.6 [facility] Comment on above: Performed By: #### L 500.2500, L100.0100 ####[facility] [address] [place], [address] Hematocrit (Bld) [Volume fraction] 36.3 % Low 37-47 [facility] Comment on above: Performed By: #### L 500.2500, L100.0100 ####[facility] [address] [place], [address] Hemoglobin (Bld) [Mass/Vol] 11.5 g/dL Low 12.0-15.0 [facility] Comment on above: Performed By: #### L 500.2500, L100.0100 ####[facility] [address] [place], [address] IG% 0.500 Normal 0.0-0.9 [facility] Comment on above: Result Comment: IG% - Immature Granulocytes (promyelocytes, myelocytes andmetamyelocytes) > 1% indicates that a LEFT SHIFT is Present. Performed By: #### L 500.2500, L100.0100 ####[facility] [address] [place], [address] Lymphocytes/100 WBC (Bld) 16.8 % Low 19-41 [facility] Comment on above: Performed By: #### L 500.2500, L100.0100 ####[facility] [address] [place], [address] MCH (RBC) [Entitic mass] 28.2 pg Normal 27.0-32.0 [facility] Comment on above: Performed By: #### L 500.2500, L100.0100 ####[facility] [address] [place], [address] MCHC (RBC) [Mass/Vol] 31.7 g/dL Low 32-36 [facility] Comment on above: Performed By: #### L 500.2500, L100.0100 ####[facility] [address] [place], [address] MCV (RBC) [Entitic vol] 89.0 fL Normal 81-99 [facility] Comment on above: Performed By: #### L 500.2500, L100.0100 ####[facility] [address] [place], [address] Monocytes/100 WBC (Bld) 16.6 % High 0-10 [facility] Comment on above: Performed By: #### L 500.2500, L100.0100 ####[facility] [address] [place], [address] Neutrophils/100 WBC (Bld) 63.9 % Normal 47-70 [facility] Comment on above: Performed By: #### L 500.2500, L100.0100 ####[facility] [address] [place], [address] Nucleated RBC (Bld) [#/Vol] 0 10*3/uL Normal 0-5 [facility] Comment on above: Performed By: #### L 500.2500, L100.0100 ####[facility] [address] [place], [address] Platelet mean volume (Bld) [Entitic vol] 8.6 fL Normal 6.2-12.0 [facility] Comment on above: Performed By: #### L 500.2500, L100.0100 ####[facility] [address] [place], [address] Platelets (Bld) [#/Vol] 279 10*3/uL Normal 150-450 [facility] Comment on above: Performed By: #### L 500.2500, L100.0100 ####[facility] [address] [place], [address] RBC (Bld) [#/Vol] 4.08 10*6/uL Low 4.2-5.4 [facility] Comment on above: Performed By: #### L 500.2500, L100.0100 ####[facility] [address] [place], [address] RDW SD 53.1 fl High 35.1-43.9 [facility] Comment on above: Performed By: #### L 500.2500, L100.0100 ####[facility] [address] [place], [address] WBC (Bld) [#/Vol] 7.8 10*3/uL Normal 4.4-11.0 [facility] Comment on above: Performed By: #### L 500.2500, L100.0100 ####[facility] [address] [place], [address] Electrocardiogram reportOrde red By: Yunior Desai on 02-15-2025 EKG study [facility] Work Phone: 12 Lead EKGon 02-14-2025 12 Lead EKG Normal [facility] Absolute lymphocyte countOrd ered By: Arya Gannon on 02-14-2025 Lymphocytes Auto (Unsp spec) [#/Vol] 1.18 10*3/uL 0.83-4.51 [facility] Activated partial thrombopla stin time (aPTT) in platelet poor plasma by coagulation aOrdered By: Arya Gannon on 02-14-2025 aPTT Coag (PPP) [Time] 29.6 s 24.1-36.2 [facility] Anion gap in Serum or Plasma Ordered By: Arya Gannon on 02-14-2025 Anion gap [Moles/Vol] 12 mmol/L 5-15 [facility] Automated lymphocyte count a s percentage of total leukocytesOrdered By: Arya Gannon on 02-14-2025 Lymphocytes/100 WBC Auto (Unsp spec) 11.8 % Low 19-41 [facility] BUN/creatinine ratioOrdered By: Arya Gannon on 02-14-2025 Urea nitrogen/Creatinine [Mass ratio] 19.4 mg/mg 10-20 [facility] Basophil percentageOrdered B y: Arya Gannon on 02-14-2025 Basophils/100 WBC (Bld) 0.4 % 0-1 [facility] Bilirubin Test strip Ql (U)O rdered By: Arya Gannon on 02-14-2025 Bilirubin Ql (U) Negative Negative [facility] Bilirubin, totalOrdered By: Arya Gannon on 02-14-2025 Bilirubin [Mass/Vol] 0.56 mg/dL 0.00-1.30 [facility] CBC W/Diff, Automatedon Absolute Lymph 1.18 X10 3/uL Normal 0.83-4.51 [facility] Comment on above: Performed By: #### L 503.6005, L300.4310, L100.0100, L300.3900, L500.4050, L501.2450 ####[facility] [address] [place], [address] Absolute Neut 7.4 X10 3/uL Normal 2.0-7.7 [facility] Comment on above: Performed By: #### L 503.6005, L300.4310, L100.0100, L300.3900, L500.4050, L501.2450 ####[facility] [address] [place], [address] Basophils/100 WBC (Bld) 0.4 % Normal 0-1 [facility] Comment on above: Performed By: #### L 503.6005, L300.4310, L100.0100, L300.3900, L500.4050, L501.2450 ####[facility] [address] [place], [address] Eosinophils/100 WBC (Bld) 0.8 % Normal 0-5 [facility] Comment on above: Performed By: #### L 503.6005, L300.4310, L100.0100, L300.3900, L500.4050, L501.2450 ####[facility] [address] [place], [address] Erythrocyte distribution width (RBC) [Ratio] 16.3 % High 11.6-14.6 [facility] Comment on above: Performed By: #### L 503.6005, L300.4310, L100.0100, L300.3900, L500.4050, L501.2450 ####[facility] [address] [place], [address] Hematocrit (Bld) [Volume fraction] 35.8 % Low 37-47 [facility] Comment on above: Performed By: #### L 503.6005, L300.4310, L100.0100, L300.3900, L500.4050, L501.2450 ####[facility] [address] [place], [address] Hemoglobin (Bld) [Mass/Vol] 11.5 g/dL Low 12.0-15.0 [facility] Comment on above: Performed By: #### L 503.6005, L300.4310, L100.0100, L300.3900, L500.4050, L501.2450 ####[facility] [address] [place], [address] IG% 0.700 Normal 0.0-0.9 [facility] Comment on above: Result Comment: IG% - Immature Granulocytes (promyelocytes, myelocytes andmetamyelocytes) > 1% indicates that a LEFT SHIFT is Present. Performed By: #### L 503.6005, L300.4310, L100.0100, L300.3900, L500.4050, L501.2450 ####[facility] [address] [place], [address] Lymphocytes/100 WBC (Bld) 11.8 % Low 19-41 [facility] Comment on above: Performed By: #### L 503.6005, L300.4310, L100.0100, L300.3900, L500.4050, L501.2450 ####[facility] [address] [place], [address] MCH (RBC) [Entitic mass] 28.5 pg Normal 27.0-32.0 [facility] Comment on above: Performed By: #### L 503.6005, L300.4310, L100.0100, L300.3900, L500.4050, L501.2450 ####[facility] [address] [place], [address] MCHC (RBC) [Mass/Vol] 32.1 g/dL Normal 32-36 [facility] Comment on above: Performed By: #### L 503.6005, L300.4310, L100.0100, L300.3900, L500.4050, L501.2450 ####[facility] [address] [place], [address] MCV (RBC) [Entitic vol] 88.6 fL Normal 81-99 [facility] Comment on above: Performed By: #### L 503.6005, L300.4310, L100.0100, L300.3900, L500.4050, L501.2450 ####[facility] [address] [place], [address] Monocytes/100 WBC (Bld) 12.2 % High 0-10 [facility] Comment on above: Performed By: #### L 503.6005, L300.4310, L100.0100, L300.3900, L500.4050, L501.2450 ####[facility] [address] [place], [address] Neutrophils/100 WBC (Bld) 74.1 % High 47-70 [facility] Comment on above: Performed By: #### L 503.6005, L300.4310, L100.0100, L300.3900, L500.4050, L501.2450 ####[facility] [address] [place], [address] Nucleated RBC (Bld) [#/Vol] 0 10*3/uL Normal 0-5 [facility] Comment on above: Performed By: #### L 503.6005, L300.4310, L100.0100, L300.3900, L500.4050, L501.2450 ####[facility] [address] [place], [address] Platelet mean volume (Bld) [Entitic vol] 8.5 fL Normal 6.2-12.0 [facility] Comment on above: Performed By: #### L 503.6005, L300.4310, L100.0100, L300.3900, L500.4050, L501.2450 ####[facility] [address] [place], [address] Platelets (Bld) [#/Vol] 328 10*3/uL Normal 150-450 [facility] Comment on above: Performed By: #### L 503.6005, L300.4310, L100.0100, L300.3900, L500.4050, L501.2450 ####[facility] [address] [place], [address] RBC (Bld) [#/Vol] 4.04 10*6/uL Low 4.2-5.4 [facility] Comment on above: Performed By: #### L 503.6005, L300.4310, L100.0100, L300.3900, L500.4050, L501.2450 ####[facility] [address] [place], [address] RDW SD 52.9 fl High 35.1-43.9 [facility] Comment on above: Performed By: #### L 503.6005, L300.4310, L100.0100, L300.3900, L500.4050, L501.2450 ####[facility] [address] [place], [address] WBC (Bld) [#/Vol] 10.0 10*3/uL Normal 4.4-11.0 [facility] Comment on above: Performed By: #### L 503.6005, L300.4310, L100.0100, L300.3900, L500.4050, L501.2450 ####[facility] [address] [place], [address] Carbon dioxide, total [Moles /volume] in Central venous bloodOrdered By: Arya Gannon on 02-14-2025 CO2 [Moles/Vol] 23.7 mmol/L 21.0-32.0 [facility] Chest PA and Lateralon 02-14 Chest PA and Lateral Normal [facility] Chloride assayOrdered By: Martín Gannon on 02-14-2025 Chloride [Moles/Vol] 100 mmol/L 98-108 [facility] Comprehensive Metabolic Prof ilon 02-14-2025 Albumin [Mass/Vol] 3.7 g/dL Normal 3.4-4.8 [facility] Comment on above: Performed By: #### L 503.6005, L300.4310, L100.0100, L300.3900, L500.4050, L501.2450 ####[facility] [address] [place], [address] Albumin/Globulin [Mass ratio] 1.2 {ratio} Normal 0.9-2.4 [facility] Comment on above: Performed By: #### L 503.6005, L300.4310, L100.0100, L300.3900, L500.4050, L501.2450 ####[facility] [address] [place], [address] ALK PHOS 150 U/L High 35-104 [facility] Comment on above: Performed By: #### L 503.6005, L300.4310, L100.0100, L300.3900, L500.4050, L501.2450 ####[facility] [address] [place], [address] ALT [Catalytic activity/Vol] 14 U/L Normal <=34 [facility] Comment on above: Performed By: #### L 503.6005, L300.4310, L100.0100, L300.3900, L500.4050, L501.2450 ####[facility] [address] [place], [address] AST [Catalytic activity/Vol] 25 U/L Normal <=31 [facility] Comment on above: Performed By: #### L 503.6005, L300.4310, L100.0100, L300.3900, L500.4050, L501.2450 ####[facility] [address] [place], [address] Bilirubin [Mass/Vol] 0.56 mg/dL Normal 0.00-1.30 [facility] Comment on above: Performed By: #### L 503.6005, L300.4310, L100.0100, L300.3900, L500.4050, L501.2450 ####[facility] [address] [place], [address] BUN/CRE 19.4 RATIO Normal 10-20 [facility] Comment on above: Performed By: #### L 503.6005, L300.4310, L100.0100, L300.3900, L500.4050, L501.2450 ####[facility] [address] [place], [address] Calcium [Mass/Vol] 8.9 mg/dL Normal 7.6-11.0 [facility] Comment on above: Performed By: #### L 503.6005, L300.4310, L100.0100, L300.3900, L500.4050, L501.2450 ####[facility] [address] [place], [address] Chloride [Moles/Vol] 100 mmol/L Normal 98-108 [facility] Comment on above: Performed By: #### L 503.6005, L300.4310, L100.0100, L300.3900, L500.4050, L501.2450 ####[facility] [address] [place], [address] CO2 [Moles/Vol] 23.7 mmol/L Normal 21.0-32.0 [facility] Comment on above: Performed By: #### L 503.6005, L300.4310, L100.0100, L300.3900, L500.4050, L501.2450 ####[facility] [address] [place], [address] Creatinine [Mass/Vol] 0.94 mg/dL Normal 0.70-1.20 [facility] Comment on above: Performed By: #### L 503.6005, L300.4310, L100.0100, L300.3900, L500.4050, L501.2450 ####[facility] [address] [place], [address] ECRCL 40.09 ml/min Low 50-250 [facility] Comment on above: Performed By: #### L 503.6005, L300.4310, L100.0100, L300.3900, L500.4050, L501.2450 ####[facility] [address] [place], [address] GAP 12 Normal 5-15 [facility] Comment on above: Performed By: #### L 503.6005, L300.4310, L100.0100, L300.3900, L500.4050, L501.2450 ####[facility] [address] [place], [address] GFR/1.73 sq M.predicted among non-blacks MDRD (S/P/Bld) [Vol rate/Area] 60 mL/min/{1.73_m2} Normal >60 [facility] Comment on above: Result Comment: mL/m in/1.73m2 CKD-EPI Creatinine Equation (2021) Performed By: #### L 503.6005, L300.4310, L100.0100, L300.3900, L500.4050, L501.2450 ####[facility] [address] [place], [address] Globulin (S) [Mass/Vol] 3.1 g/dL Normal 2.2-4.2 [facility] Comment on above: Performed By: #### L 503.6005, L300.4310, L100.0100, L300.3900, L500.4050, L501.2450 ####[facility] [address] [place], [address] Glucose [Mass/Vol] 92 mg/dL Normal 70-99 [facility] Comment on above: Performed By: #### L 503.6005, L300.4310, L100.0100, L300.3900, L500.4050, L501.2450 ####[facility] [address] [place], [address] Potassium [Moles/Vol] 3.7 mmol/L Normal 3.3-5.1 [facility] Comment on above: Performed By: #### L 503.6005, L300.4310, L100.0100, L300.3900, L500.4050, L501.2450 ####[facility] [address] [place], [address] Sodium [Moles/Vol] 135 mmol/L Normal 133-145 [facility] Comment on above: Performed By: #### L 503.6005, L300.4310, L100.0100, L300.3900, L500.4050, L501.2450 ####[facility] [address] [place], [address] T PROT 6.9 g/dL Normal 5.9-8.4 [facility] Comment on above: Performed By: #### L 503.6005, L300.4310, L100.0100, L300.3900, L500.4050, L501.2450 ####[facility] [address] [place], [place], [id number] Urea nitrogen [Mass/Vol] 18 mg/dL Normal 4-19 [facility] Comment on above: Performed By: #### L 503.6005, L300.4310, L100.0100, L300.3900, L500.4050, L501.2450 ####[facility] [address] [place], [place], [id number] Emergency Department Summary on 02-14-2025 Emergency Department Summary Normal [facility] Eosinophil percentageOrdered By: Arya Gannon on 02-14-2025 Eosinophils/100 WBC (Bld) 0.8 % 0-5 [facility] Erythrocyte distribution wid th ratioOrdered By: Arya Gannon on 02-14-2025 Erythrocyte distribution width (RBC) [Ratio] 16.3 % High 11.6-14.6 [facility] Erythrocyte distribution wid th standard deviationOrdered By: Arya Stanley on 02-14-2025 Erythrocyte distribution width (RBC) [Ratio] 52.9 fl High 35.1-43.9 [facility] Glomerular filtration rate ( GFR) estimation/1.73 sq m using serum, plasma, or whole bOrdered By: Arya Gannon on 02-14-2025 GFR/1.73 sq M.predicted among non-blacks MDRD (S/P/Bld) [Vol rate/Area] 60 mL/min/{1.73_m2} >60 [facility] H AND P Exam - Hospitaliston 02-14-2025 H&P Exam - Hospitalist Normal [facility] Hematocrit Auto (Bld) [Volum e fraction]Ordered By: Arya Gannon on 02-14-2025 Hematocrit (Bld) [Volume fraction] 35.8 % Low 37-47 [facility] Hemoglobin measurementOrdere d By: Arya Gannon on 02-14-2025 Hemoglobin (Bld) [Mass/Vol] 11.5 g/dL Low 12.0-15.0 [facility] Immature granulocytes/100 WB C Auto (Bld)Ordered By: Arya KenLizeth on 02-14-2025 Immature granulocytes/100 WBC (Bld) 0.700 % 0.0-0.9 [facility] Influenza virus A and B and SARS-CoV-2 (COVID-19) and Respiratory syncytial virus RNAOrdered By: Arya Karla on 02-14-2025 SARS-CoV-2 (COVID-19) RNA ZAID+probe Ql (Unsp spec) [facility] Ketones Test strip Ql (U)Ord ered By: Arya rossLizeth on 02-14-2025 Ketones Ql (U) 5 mg/dl High Negative [facility] L501.4021on 02-14-2025 Trop T High Sen 35 ng/L High <=14 [facility] Comment on above: Performed By: #### L 501.4021 ####[facility] [address] [place], [place], [id number] Lactic Acidon 02-14-2025 Lactate [Moles/Vol] 1.3 mmol/L Normal 0.0-2.0 [facility] Comment on above: Order Comment: Y Performed By: #### L 503.6005, L300.4310, L100.0100, L300.3900, L500.4050, L501.2450 ####[facility] [address] [place], [address] Legionella Antigen Urineon 0 02-14-2025 LEGU Normal [facility] Comment on above: Performed By: #### M 300.4500, M300.4600 ####[facility] [address] [place], [address] Lipaseon 02-14-2025 Lipase [Catalytic activity/Vol] 40 U/L Normal 13-75 [facility] Comment on above: Result Comment: Plea se note:LIPASE revised reference range effective 22.New Lipase methodology. Expected to produce lower valuesthan the previous assay method.NEW Reference Range: 13 - 75 U/L Performed By: #### L 503.6005, L300.4310, L100.0100, L300.3900, L500.4050, L501.2450 ####[facility] [address] [place], [address] M100.678on 02-14-2025 M100.678 Pending SARS-CoV-2 (COVID 19) Negative INFLUENZA A Negative INFLUENZA B Negative RSV PCR Negative Normal [facility] Comment on above: Performed By: #### M 100.678, L400.0001 ####[facility] [address] [place], [address] MCV (mean corpuscular volume ) determinationOrdered By: Arya Gannon on 02-14-2025 MCV (RBC) [Entitic vol] 88.6 fL 81-99 [facility] Mean corpuscular hemoglobin (MCH) determinationOrdered By: Arya Gannon on 02-14-2025 MCH (RBC) [Entitic mass] 28.5 pg 27.0-32.0 [facility] Monocyte percentageOrdered B y: Arya Gannon on 02-14-2025 Monocytes/100 WBC (Bld) 12.2 % High 0-10 [facility] Mucus LM Ql (Urine sed)Order ed By: Arya Gannon on 02-14-2025 Mucus Ql (Urine sed) 0 SEEN /hpf [facility] Neutrophil percentageOrdered By: Arya Gannon on 02-14-2025 Neutrophils/100 WBC (Bld) 74.1 % High 47-70 [facility] Nitrite Test strip Ql (U)Ord ered By: Arya Gannon on 02-14-2025 Nitrite Ql (U) Negative Negative [facility] No Panel InformationOrdered By: Arya Gannon on 02-14-2025 25 U/L <32 [facility] Partial Thromboplast Timeon 02-14-2025 aPTT Coag (Bld) [Time] 29.6 s Normal 24.1-36.2 [facility] Comment on above: Performed By: #### L 503.6005, L300.4310, L100.0100, L300.3900, L500.4050, L501.2450 ####[facility] [id number] [place], [address] Platelet countOrdered By: Martín Gannon on 02-14-2025 Platelets (Bld) [#/Vol] 328 10*3/uL 150-450 [facility] Potassium measurement (mass/ volume)Ordered By: Arya Karla on 02-14-2025 Potassium (Unsp spec) [Mass/Vol] 3.7 mmol/L 3.3-5.1 [facility] Protein Test strip Ql (U)Ord ered By: Arya Gannon on 02-14-2025 Protein Ql (U) Negative Negative [facility] Prothrombin Time w/INRon INR Coag (PPP) [Relative time] 0.9 {INR} Normal [facility] Comment on above: Performed By: #### L 503.6005, L300.4310, L100.0100, L300.3900, L500.4050, L501.2450 ####[facility] [address] [place], [address] PT Coag (PPP) [Time] 12.7 s Normal 11.7-14.9 [facility] Comment on above: Performed By: #### L 503.6005, L300.4310, L100.0100, L300.3900, L500.4050, L501.2450 ####[facility] [address] [place], [address] Prothrombin timeOrdered By: Arya Gannon on 02-14-2025 PT Coag (PPP) [Time] 12.7 s 11.7-14.9 [facility] RBC Auto (Bld) [#/Vol]Ordere d By: Arya Gannon on 02-14-2025 RBC (Bld) [#/Vol] 4.04 10*6/uL Low 4.2-5.4 [facility] Serum creatinine measurement (mass/volume)Ordered By: Arya Gannon on 02-14-2025 Creatinine [Mass/Vol] 0.94 mg/dL 0.70-1.20 [facility] Serum globulin measurementOr dered By: Arya Gannon on 02-14-2025 Globulin (S) [Mass/Vol] 3.1 g/dL 2.2-4.2 [facility] Serum glucose measurement (m ass/volume)Ordered By: Arya Gannon on 02-14-2025 Glucose [Mass/Vol] 92 mg/dL 70-99 [facility] Serum or plasma alanine carpio otransferase (ALT) measurementOrdered By: Arya Gannon on 02-14-2025 ALT [Catalytic activity/Vol] 14 U/L <35 [facility] Serum or plasma albumin candice urement (mass/volume)Ordered By: Arya Stanley on 02-14-2025 Albumin [Mass/Vol] 3.7 g/dL 3.4-4.8 [facility] Serum or plasma albumin/glob ulin mass ratioOrdered By: Arya Gannon on 02-14-2025 Albumin/Globulin [Mass ratio] 1.2 {ratio} 0.9-2.4 [facility] Serum or plasma alkaline anthony sphatase measurementOrdered By: Arya Gannon on 02-14-2025 ALP [Catalytic activity/Vol] 150 U/L High 35-104 [facility] Serum or plasma calcium candice urement (mass/volume)Ordered By: Arya Stanley on 02-14-2025 Calcium [Mass/Vol] 8.9 mg/dL 7.6-11.0 [facility] Serum or plasma urea nitroge n measurement (mass/volume)Ordered By: Arya Gannon on 02-14-2025 Urea nitrogen [Mass/Vol] 18 mg/dL 4-19 [facility] Sodium levelOrdered By: Luis Angel Gannon on 02-14-2025 Sodium [Moles/Vol] 135 mmol/L 133-145 [facility] Squamous epithelial cells de tection in urine sediment by light microscopyOrdered By: Arya Gannon on 02-14-2025 Epithelial cells.squamous LM Ql (Urine sed) 0 SEEN /hpf 5-10 [facility] Strep pneumoniae Antig(UR,CS F)on 02-14-2025 STPAG Normal [facility] Comment on above: Performed By: #### M 300.4500, M300.4600 ####[facility] [address] [place], [place], [id number] Total proteinOrdered By: Ritchie Gannon on 02-14-2025 Protein [Mass/Vol] 6.9 g/dL 5.9-8.4 [facility] Troponin T HS 2 HRon 025 Trop T High Sen 32 ng/L High <=14 [facility] Comment on above: Performed By: #### L 499.0042 ####[facility] [address] [place], [place], [id number] Troponin T.cardiac [Mass/vol ume] in Serum or Plasma by High sensitivity methodOrdered By: Arya Gannon on 02-14-2025 Troponin T.cardiac High sensitivity method [Mass/Vol] 32 ng/L High <14 [facility] Troponin T.cardiac High sensitivity method [Mass/Vol] 35 ng/L High <14 [facility] Urinalysis, Completeon 02-14 WBC 0-5 SEEN Normal 0-5 [facility] Comment on above: Order Comment: CLEAN CATCH Performed By: #### M 100.678, L400.0001 ####[facility] [address] [place], [address] BACTERIA 0 SEEN Normal None Seen [facility] Comment on above: Order Comment: CLEAN CATCH Performed By: #### M 100.678, L400.0001 ####[facility] [address] [place], [address] EPI,SQUAMOUS 0 SEEN Normal 5-10 [facility] Comment on above: Order Comment: CLEAN CATCH Performed By: #### M 100.678, L400.0001 ####[facility] [address] [place], [address] Mucus Ql (Urine sed) 0 SEEN Normal [facility] Comment on above: Order Comment: CLEAN CATCH Performed By: #### M 100.678, L400.0001 ####[facility] [address] [place], [address] RBC 0 SEEN Normal 0-5 [facility] Comment on above: Order Comment: CLEAN CATCH Performed By: #### M 100.678, L400.0001 ####[facility] [address] [place], [address] Urine Legionella pneumophila antigen detectionOrdered By: Liudmila Morin on 02-14-2025 L. pneumophila Ag Ql (U) [facility] Urine clarityOrdered By: Ritchie Gannon on 02-14-2025 Clarity (U) Clear Clear [facility] Urine color determinationOrd ered By: Arya Gannon on 02-14-2025 Color (U) Yellow Yellow [facility] Urine glucose detectionOrder ed By: Arya Gannon on 02-14-2025 Glucose Ql (U) Normal mg/dl Normal [facility] Urine leukocyte esterase det ection by dipstickOrdered By: Arya Gannon on 02-14-2025 Leukocyte esterase Test strip Ql (U) 25 /ul High Negative [facility] Urine pHOrdered By: Arya Acosta on 02-14-2025 pH (U) 6.0 [pH] 5.0 - 8.0 [facility] Urine sediment bacteria coun t by microscopy (number/high power field)Ordered By: Arya Gannon on 02-14-2025 Bacteria LM.HPF (Urine sed) [#/Area] 0 /[HPF] None Seen [facility] Urine specific gravity measu rementOrdered By: [facility] on 02-14-[facility] Specific gravity (U) [Rel density] 1.015 1.002-1.03 0 [facility] Urine urobilinogen measureme ntOrdered By: [facility] Mcdowellt on 02-14-2025 Urobilinogen Ql (U) Normal mg/dl Normal [facility] White blood cell (WBC) count Or[facility] on 02-14-2025 WBC (Bld) [#/Vol] 10.0 10*3/uL 4.4-11.0 [facility] White blood cell countOrdere d By: Arya Gannon on 02-14-2025 White blood cell count 0-5 SEEN /hpf 0-5 [facility] OPERATIVE PROCEDURESon 02-02 OPERATIVE PROCEDURES [facility] OPERATIVE REPORT NAME ACCOUNT SEX AGE ADMIT DISCHARGE PT MED. RECORD# NUMBER DATE DATE TYPE SAPNA BULLARD [id number] F 85 01/20/25 01/20/25 2 [id number] ROOM: [facility] DATE OF : 1940 DICTATING PHYSICIAN: Marcos White DATE OF PROCEDURE: January 20, 2025 SURGEON: Marcos White DO MACHINE REPAIR PERSON: None. ANESTHESIOLOGIST: ANESTHETIC: Local. PRE-PROCEDURE DIAGNOSIS: Lumbosacral radiculitis/M54.17. POST-PROCEDURE DIAGNOSIS: Lumbosacral radiculitis/M54.17. PROCEDURE PERFORMED: Lumbar epidural with fluoroscopy. COMPLICATIONS: None. ESTIMATED BLOOD LOSS: None. INTRAVENOUS FLUIDS: None. INDICATIONS: This is an 85-year-old female with severe low back and radicular pain refractory to medications. She has had previous epidural injections with great efficacy and agrees to the risks and benefits. The patient would like a lower dose, as she gets somewhat agitated on a higher dose of Kenalog. We will decrease the dose to 40 mg today. DESCRIPTION OF PROCEDURE: This 85-year-old female was taken to the operating room and was placed in the sitting position. Under sterile prep of the lumbar spine, a local was given at the L3-4 interspace, identified via fluoroscopic views. An 18-gauge Tuohy needle was then placed midline into the epidural space via loss of resistance with air. After appropriate confirmation and negative aspiration, Omnipaque 300, 0.25 mL was injected, showing good spread of the dye in the epidural space. This was followed by Kenalog 40 mg and preservative-free saline 3 mL. The needle was then removed intact. The patient was transferred to ambulatory surgery in satisfactory Page 1 of 2 SAPNA BULLARD Operative Report SAPNA BULLARD : 1940 condition. Dictated By: Marcos White DO 01/20/25 12:08 JOB #: [id number] Transcribed By: tim 01/20/25 13:35 Electronically signed by: E-SIGN: MARCOS WHITE 02/02/25 07:18 Page 2 of 2 SAPNA BULLARD Operative Report Normal [facility] Absolute lymphocyte countOrd ered By: Genevieve Wu on 01-30-2025 Lymphocytes Auto (Unsp spec) [#/Vol] 1.91 10*3/uL 0.83-4.51 [facility] Anion gap in Serum or Plasma Ordered By: Genevieve Wu on 01-30-2025 Anion gap [Moles/Vol] 11 mmol/L 5-15 [facility] Automated lymphocyte count a s percentage of total leukocytesOrdered By: Genevieve Wu on 01-30-2025 Lymphocytes/100 WBC Auto (Unsp spec) 20.1 % 19-41 [facility] BUN/creatinine ratioOrdered By: Genevieve Wu on 01-30-2025 Urea nitrogen/Creatinine [Mass ratio] 21.1 mg/mg High 10-20 [facility] Basophil percentageOrdered B y: Genevieve Wu on 01-30-2025 Basophils/100 WBC (Bld) 0.2 % 0-1 [facility] Carbon dioxide, total [Moles /volume] in Central venous bloodOrdered By: Genevieve Wu on 01-30-2025 CO2 [Moles/Vol] 25.1 mmol/L 21.0-32.0 [facility] Chloride assayOrdered By: Abe Wu on 01-30-2025 Chloride [Moles/Vol] 106 mmol/L 98-108 [facility] Eosinophil percentageOrdered By: Genevieve Wu on 01-30-2025 Eosinophils/100 WBC (Bld) 1.9 % 0-5 [facility] Erythrocyte distribution wid th ratioOrdered By: Genevieve Wu on 01-30-2025 Erythrocyte distribution width (RBC) [Ratio] 16.2 % High 11.6-14.6 [facility] Erythrocyte distribution wid th standard deviationOrdered By: Genevieve Wu on 01-30-2025 Erythrocyte distribution width (RBC) [Ratio] 53.1 fl High 35.1-43.9 [facility] Glomerular filtration rate ( GFR) estimation/1.73 sq m using serum, plasma, or whole bOrdered By: Genevieve Wu 01-30-2025 GFR/1.73 sq M.predicted among non-blacks MDRD (S/P/Bld) [Vol rate/Area] 63 mL/min/{1.73_m2} >60 [facility] Hematocrit Auto (Bld) [Volum e fraction]Ordered By: Genevieve Wu on 01-30-2025 Hematocrit (Bld) [Volume fraction] 34.7 % Low 37-47 [facility] Hemoglobin measurementOrdere d By: Genevieve Wu on 01-30-2025 Hemoglobin (Bld) [Mass/Vol] 10.5 g/dL Low 12.0-15.0 [facility] Immature granulocytes/100 WB C Auto (Bld)Ordered By: Genevieve Wu 01-30-2025 Immature granulocytes/100 WBC (Bld) 1.300 % High 0.0-0.9 [facility] MCV (mean corpuscular volume ) determinationOrdered By: Genevieve Wu 01-30-2025 MCV (RBC) [Entitic vol] 91.3 fL 81-99 [facility] Mean corpuscular hemoglobin (MCH) determinationOrdered By: Genevieve Wu on 01-30-2025 MCH (RBC) [Entitic mass] 27.6 pg 27.0-32.0 [facility] Monocyte percentageOrdered B y: Genevieve Wu on 01-30-2025 Monocytes/100 WBC (Bld) 10.3 % High 0-10 [facility] Neutrophil percentageOrdered By: Genevieve Wu on 01-30-2025 Neutrophils/100 WBC (Bld) 66.2 % 47-70 [facility] Platelet countOrdered By: Abe Wu on 01-30-2025 Platelets (Bld) [#/Vol] 331 10*3/uL 150-450 [facility] Potassium measurement (mass/ volume)Ordered By: Genevieve Wu on 01-30-2025 Potassium (Unsp spec) [Mass/Vol] 4.2 mmol/L 3.3-5.1 [facility] RBC Auto (Bld) [#/Vol]Ordere d By: Genevieve Wu on 01-30-2025 RBC (Bld) [#/Vol] 3.80 10*6/uL Low 4.2-5.4 [facility] Serum creatinine measurement (mass/volume)Ordered By: Genevieve Wu on 01-30-2025 Creatinine [Mass/Vol] 0.90 mg/dL 0.70-1.20 [facility] Serum glucose measurement (m ass/volume)Ordered By: Genevieve Waynechey on 01-30-2025 Glucose [Mass/Vol] 128 mg/dL High 70-99 [facility] Serum or plasma calcium candice urement (mass/volume)Ordered By: Genevieve Waynechey on 01-30-2025 Calcium [Mass/Vol] 9.1 mg/dL 7.6-11.0 [facility] Serum or plasma urea nitroge n measurement (mass/volume)Ordered By: Genevieve Waynejuanitadrew on 01-30-2025 Urea nitrogen [Mass/Vol] 19 mg/dL 4-19 [facility] Sodium levelOrdered By: Gerardo ashley Waynejuanitadrew on 01-30-2025 Sodium [Moles/Vol] 142 mmol/L 133-145 [facility] White blood cell (WBC) count Ordered By: Genevieve Wu on 01-30-2025 WBC (Bld) [#/Vol] 9.5 10*3/uL 4.4-11.0 [facility] C-ARM USAGE 1 HOURon C-ARM USAGE 1 HOUR [place] [address] Patient: SAPNA BULLARD Phone#: : 1940 Age: 85 Gender: F Pt. Type: Out Account: [id number] Location: [facility] Ordering: MARCOS WHITE Exam Date: 01/20/2025/12:02 Family Phys: NICCI LEVINEPIPPAMARIA DOLORES Charge Code: 564948 Physician: [place] Order #: [id number] Dose#: 1.85 mGy PROCEDURE: C-ARM USEAGE 1 HR COMPARISON: [facility], , C-ARM USEAGE 1 HR, 08/11/2024, 10:47. INDICATIONS: Pain procedure. TOTAL DOSE: 1.85 mGy FINDINGS: IMAGES: BONES: Normal. No significant arthropathy or acute abnormality. SOFT TISSUES: Negative. No visible soft tissue swelling. EFFUSION: None visible. OTHER: Dorsal spinal needle is present at the lumbar level. CONCLUSION: 1. Dorsal spinal needle at the lumbar level. Dictated by: Danitza Richardson MD on 01/20/2025 at 13:04 Approved by: Danitza Richardson MD on 01/20/2025 at 13:05 Normal [facility] Absolute lymphocyte countOrd ered By: Genevieve Wu on 01-02-2025 Lymphocytes Auto (Unsp spec) [#/Vol] 1.82 10*3/uL 0.83-4.51 [facility] Absolute neutrophil countOrd ered By: Genevieve Wu on 01-02-2025 Neutrophils (Bld) [#/Vol] 6.3 10*3/uL 2.0-7.7 [facility] Anion gap in Serum or Plasma Ordered By: Genevieve Wu on 01-02-2025 Anion gap [Moles/Vol] 16 mmol/L High 5-15 [facility] Automated lymphocyte count a s percentage of total leukocytesOrdered By: Genevieve Wu on 01-02-2025 Lymphocytes/100 WBC Auto (Unsp spec) 19.0 % 19- [facility] BUN/creatinine ratioOrdered By: Genevieve Wu on 01-02-2025 Urea nitrogen/Creatinine [Mass ratio] 18.7 mg/mg 10-20 [facility] Basophil percentageOrdered B y: Genevieve Wu on 01-02-2025 Basophils/100 WBC (Bld) 0.5 % 0-1 [facility] Bilirubin directOrdered By: Genevieve Wu on 01-02-2025 Bilirubin.direct [Mass/Vol] mg/dL 0.00-0.30 [facility] Bilirubin, totalOrdered By: Genevieve Wu on 01-02-2025 Bilirubin [Mass/Vol] 0.23 mg/dL 0.00-1.30 [facility] Calculated very low density lipoprotein (VLDL) cholesterol measurementOrdered By: Genevieve Wu on 01-02-2025 Calculated very low density lipoprotein (VLDL) cholesterol measurement 38 mg/dL - [facility] Carbon dioxide, total [Moles /volume] in Central venous bloodOrdered By: Genevieve Wu on 01-02-2025 CO2 [Moles/Vol] 21.7 mmol/L 21.0-32.0 [facility] Chloride assayOrdered By: Abe Wu on 01-02-2025 Chloride [Moles/Vol] 101 mmol/L 98-108 [facility] Eosinophil percentageOrdered By: Genevieve uW on 01-02-2025 Eosinophils/100 WBC (Bld) 1.6 % 0-5 [facility] Erythrocyte distribution wid th ratioOrdered By: Genevieve Wu on 01-02-2025 Erythrocyte distribution width (RBC) [Ratio] 15.1 % High 11.6-14.6 [facility] Erythrocyte distribution wid th standard deviationOrdered By: Genevieve Wu on 01-02-2025 Erythrocyte distribution width (RBC) [Ratio] 49.0 fl High 35.1-43.9 [facility] Glomerular filtration rate ( GFR) estimation/1.73 sq m using serum, plasma, or whole bOrdered By: Genevieve Wu on 01-02-2025 GFR/1.73 sq M.predicted among non-blacks MDRD (S/P/Bld) [Vol rate/Area] 62 mL/min/{1.73_m2} >60 [facility] Comment on above: mL/min/1.73m2 CKD-EP I Creatinine Equation (2020) Hematocrit Auto (Bld) [Volum e fraction]Ordered By: Genevieve Wu on 01-02-2025 Hematocrit (Bld) [Volume fraction] 39.4 % 37-47 [facility] Hemoglobin measurementOrdere d By: Genevieve Wu on 01-02-2025 Hemoglobin (Bld) [Mass/Vol] 11.9 g/dL Low 12.0-15.0 [facility] Immature granulocytes/100 WB C Auto (Bld)Ordered By: Genevieve Wu on 01-02-2025 Immature granulocytes/100 WBC (Bld) 0.500 % 0.0-0.9 [facility] Comment on above: IG% - Immature Granu locytes (promyelocytes, myelocytes and metamyelocytes) > 1% indicates that a LEFT SHIFT is Present. LDL calc ser/plasOrdered By: Genevieve Wu on 01-02-2025 Cholesterol in LDL [Mass/Vol] 97 mg/dL [facility] Comment on above: Mpidqmzwyk=487-778 m g/dL & Higher Gjti=923 mg/dL or greater Laboratory - Chemistry and C hemistry - challengeOrdered By: Genevieve Wu on 01-02-2025 AST [Catalytic activity/Vol] 23 U/L <32 [facility] MCV (mean corpuscular volume ) determinationOrdered By: Genevieve Wu on 01-02-2025 MCV (RBC) [Entitic vol] 88.7 fL 81-99 [facility] Mean corpuscular hemoglobin (MCH) determinationOrdered By: Genevieve Wu on 01-02-2025 MCH (RBC) [Entitic mass] 26.8 pg Low 27.0-32.0 [facility] Mean corpuscular hemoglobin concentration (MCHC) determinationOrdered By: Abehaseeb Blackjuanitadrew on 01-02-2025 MCHC (RBC) [Mass/Vol] 30.2 g/dL Low 32-36 [facility] Mean platelet volume determi nationOrdered By: Abehaseeb Blackjuanitadrew on 01-02-2025 Platelet mean volume (Bld) [Entitic vol] 9.2 fL 6.2-12.0 [facility] Monocyte percentageOrdered B y: Salliesharon Blackjuanitadrew on 01-02-2025 Monocytes/100 WBC (Bld) 12.3 % High 0-10 [facility] Neutrophil percentageOrdered By: mihirgibslandsharon Blackjuanitadrew on 01-02-2025 Neutrophils/100 WBC (Bld) 66.1 % 47-70 [facility] No Panel InformationOrdered By: Genevieve Wu on 01-02-2025 23 U/L <32 [facility] Nucleated red blood cell per centageOrdered By: haseeb Blackjuanitadrew on 01-02-2025 Nucleated RBC/100 WBC (Bld) [Ratio] 0 % 0-5 [facility] Platelet countOrdered By: Abe yasminsharon Blackjuanitadrew on 01-02-2025 Platelets (Bld) [#/Vol] 431 10*3/uL 150-450 [facility] Potassium measurement (mass/ volume)Ordered By: Genevieve Wu on 01-02-2025 Potassium (Unsp spec) [Mass/Vol] 3.8 mmol/L 3.3-5.1 [facility] RBC Auto (Bld) [#/Vol]Ordere d By: Genevieve Wu on 01-02-2025 RBC (Bld) [#/Vol] 4.44 10*6/uL 4.2-5.4 [facility] Screening total cholesterol/ high density lipoprotein (HDL) cholesterol ratioOrdered By: Genevieve Wu on 01-02-2025 Cholesterol.total/Cho lesterol in HDL [Mass ratio] 3.62 {ratio} [facility] Serum creatinine measurement (mass/volume)Ordered By: Genevieve Wu on 01-02-2025 Creatinine [Mass/Vol] 0.92 mg/dL 0.70-1.20 [facility] Serum globulin measurementOr dered By: Genevieve Wu on 01-02-2025 Globulin (S) [Mass/Vol] 3.6 g/dL 2.2-4.2 [facility] Serum glucose measurement (m ass/volume)Ordered By: Genevieve Wu on 01-02-2025 Glucose [Mass/Vol] 76 mg/dL 70-99 [facility] Serum or plasma alanine carpio otransferase (ALT) measurementOrdered By: Genevieve Wu on 01-02-2025 ALT [Catalytic activity/Vol] 7 U/L <35 [facility] Serum or plasma albumin candice urement (mass/volume)Ordered By: Genevieve Wu on 01-02-2025 Albumin [Mass/Vol] 4.0 g/dL 3.4-4.8 [facility] Serum or plasma alkaline anthony sphatase measurementOrdered By: Genevieve Wu on 01-02-2025 ALP [Catalytic activity/Vol] 150 U/L High 35-104 [facility] Serum or plasma calcium candice urement (mass/volume)Ordered By: Genevieve Wu on 01-02-2025 Calcium [Mass/Vol] 9.7 mg/dL 7.6-11.0 [facility] Serum or plasma cholesterol in HDL measurement (mass/volume)Ordered By: Genevieve Wu on 01-02-2025 Cholesterol in HDL [Mass/Vol] 52 mg/dL >40 [facility] Comment on above: National Cholesterol Education Program (NCEP) guidelines:<40 mg/dL: Low HDL-cholesterol (major risk factor for CHD)>= 60 mg/dL: High HDL-cholesterol (negative risk factor for CHD)HDL-cholesterol is affected by a number of factors, e.g. smoking, exercise, hormones, sex and age. Serum or plasma cholesterol measurement (mass/volume)Ordered By: Genevieve Wu on 01-02-2025 Cholesterol [Mass/Vol] 187 mg/dL <201 [facility] Comment on above: Cholesterol level, D esirable <200 mg/dLBorderline high cholesterol 200-239 mg/dLHigh cholesterol >=240 mg/dLRecommendations of the NCEP Adult Treatment Panel for the following risk-cutoff thresholds for the [place] population. Serum or plasma urea nitroge n measurement (mass/volume)Ordered By: Genevieve Wu on 01-02-2025 Urea nitrogen [Mass/Vol] 17 mg/dL 4-19 [facility] Sodium levelOrdered By: Gerardo kohligilbertdrew Wu on 01-02-2025 Sodium [Moles/Vol] 139 mmol/L 133-145 [facility] Total proteinOrdered By: Garry Wu on 01-02-2025 Protein [Mass/Vol] 7.6 g/dL 5.9-8.4 [facility] Triglycerides measurementOrd ered By: Genevieve Wu on 01-02-2025 Triglyceride [Mass/Vol] 192 mg/dL <199 [facility] Comment on above: The drugs N-Acetylcy steine and Metamizole may falsely depress this assay. Normal range: <150 mg/dLBorderline High: 150-199 mg/dLHigh: 200-499 mg/dLVery High: >500 mg/dL White blood cell (WBC) count Ordered By: Genevieve Wu on 01-02-2025 WBC (Bld) [#/Vol] 9.6 10*3/uL 4.4-11.0 [facility] Pulmonary Visit Reporton Pulmonary Visit Report Normal [facility] Neurology Visit Reporton Neurology Visit Report Normal [facility] Absolute lymphocyte countOrd ered By: Genevieve Wu on 11-28-2024 Lymphocytes Auto (Unsp spec) [#/Vol] 2.10 10*3/uL 0.83-4.51 [facility] Absolute neutrophil countOrd ered By: Genevieve Wu on 11-28-2024 Neutrophils (Bld) [#/Vol] 6.1 10*3/uL 2.0-7.7 [facility] Anion gap in Serum or Plasma Ordered By: Genevieve Wu on 11-28-2024 Anion gap [Moles/Vol] 14 mmol/L 5-15 [facility] Automated lymphocyte count a s percentage of total leukocytesOrdered By: Salliesharon Blackjuanitadrew on 11-28-2024 Lymphocytes/100 WBC Auto (Unsp spec) 22.2 % 19-41 [facility] BUN/creatinine ratioOrdered By: mihirgibslandsharon Blackjuanitadrew on 11-28-2024 Urea nitrogen/Creatinine [Mass ratio] 14.9 mg/mg 10-20 [facility] Basophil percentageOrdered B y: Salliesharon Blackjuanitadrew on 11-28-2024 Basophils/100 WBC (Bld) 0.7 % 0-1 [facility] Carbon dioxide, total [Moles /volume] in Central venous bloodOrdered By: Abehaseeb Blackjuanitadrew on 11-28-2024 CO2 [Moles/Vol] 23.8 mmol/L 21.0-32.0 [facility] Chest without Contraston Chest without Contrast Normal [facility] Chloride assayOrdered By: Abe mihirdion Wu on 11-28-2024 Chloride [Moles/Vol] 103 mmol/L 98-108 [facility] Eosinophil percentageOrdered By: Abemihirkarleysharon Blackjuanitadrew on 11-28-2024 Eosinophils/100 WBC (Bld) 2.0 % 0-5 [facility] Erythrocyte distribution wid th ratioOrdered By: haseeb Wu on 11-28-2024 Erythrocyte distribution width (RBC) [Ratio] 14.6 % 11.6-14.6 [facility] Erythrocyte distribution wid th standard deviationOrdered By: Genevieve Wu on 11-28-2024 Erythrocyte distribution width (RBC) [Ratio] 46.7 fl High 35.1-43.9 [facility] Glomerular filtration rate ( GFR) estimation/1.73 sq m using serum, plasma, or whole bOrdered By: Genevieve Wu on 11-28-2024 GFR/1.73 sq M.predicted among non-blacks MDRD (S/P/Bld) [Vol rate/Area] 57 mL/min/{1.73_m2} Low >60 [facility] Comment on above: mL/min/1.73m2 CKD-EP I Creatinine Equation (2020) Hematocrit Auto (Bld) [Volum e fraction]Ordered By: Genevieve Wu on 11-28-2024 Hematocrit (Bld) [Volume fraction] 40.5 % 37-47 [facility] Hemoglobin measurementOrdere d By: Genevieve Wu on 11-28-2024 Hemoglobin (Bld) [Mass/Vol] 12.3 g/dL 12.0-15.0 [facility] Immature granulocytes/100 WB C Auto (Bld)Ordered By: Genevieve Wu on 11-28-2024 Immature granulocytes/100 WBC (Bld) 0.400 % 0.0-0.9 [facility] Comment on above: IG% - Immature Granu locytes (promyelocytes, myelocytes and metamyelocytes) > 1% indicates that a LEFT SHIFT is Present. MCV (mean corpuscular volume ) determinationOrdered By: Genevieve Wu on 11-28-2024 MCV (RBC) [Entitic vol] 87.9 fL 81-99 [facility] Mean corpuscular hemoglobin (MCH) determinationOrdered By: [facility] Baldwinsharon Wu on 11-28-2024 MCH (RBC) [Entitic mass] 26.7 pg Low 27.0-32.0 [facility] Mean corpuscular hemoglobin concentration (MCHC) determinationOrdered By: mihirgibslandsharon Wu on 11-28-2024 MCHC (RBC) [Mass/Vol] 30.4 g/dL Low 32-36 [facility] Mean platelet volume determi nationOrdered By: haseeb Wu on 11-28-2024 Platelet mean volume (Bld) [Entitic vol] 9.3 fL 6.2-12.0 [facility] Monocyte percentageOrdered B y: Genevieve Wu on 11-28-2024 Monocytes/100 WBC (Bld) 10.1 % High 0-10 [facility] Neutrophil percentageOrdered By: Genevieve Wu on 11-28-2024 Neutrophils/100 WBC (Bld) 64.6 % 47-70 [facility] Nucleated red blood cell per centageOrdered By: haseeb Wu on 11-28-2024 Nucleated RBC/100 WBC (Bld) [Ratio] 0 % 0-5 [facility] Platelet countOrdered By: Abe Wu on 11-28-2024 Platelets (Bld) [#/Vol] 415 10*3/uL 150-450 [facility] Potassium measurement (mass/ volume)Ordered By: Genevieve Waynejuanitadrew on 11-28-2024 Potassium (Unsp spec) [Mass/Vol] 3.4 mmol/L 3.3-5.1 [facility] RBC Auto (Bld) [#/Vol]Ordere d By: Genevieve Waynechey on 11-28-2024 RBC (Bld) [#/Vol] 4.61 10*6/uL 4.2-5.4 [facility] Serum creatinine measurement (mass/volume)Ordered By: Genevieve Waynejuanitadrew on 11-28-2024 Creatinine [Mass/Vol] 0.98 mg/dL 0.70-1.20 [facility] Serum glucose measurement (m ass/volume)Ordered By: Abemihirkarleysharon Blackjuanitadrew on 11-28-2024 Glucose [Mass/Vol] 95 mg/dL 70-99 [facility] Serum or plasma calcium candice urement (mass/volume)Ordered By: Abemihirdion Waynechey on 11-28-2024 Calcium [Mass/Vol] 9.5 mg/dL 7.6-11.0 [facility] Serum or plasma urea nitroge n measurement (mass/volume)Ordered By: Abehaseeb Blackjuanitadrew on 11-28-2024 Urea nitrogen [Mass/Vol] 15 mg/dL 4-19 [facility] Sodium levelOrdered By: Gerardo Galavizdrew on 11-28-2024 Sodium [Moles/Vol] 141 mmol/L 133-145 [facility] White blood cell (WBC) count Ordered By: Abemihirkarleysharon Blackjuanitadrew on 11-28-2024 WBC (Bld) [#/Vol] 9.5 10*3/uL 4.4-11.0 [facility] Echocardiogram study reportO rdered By: Sharon Crouch on 11-09-2024 Study report [facility] [address] [place] [address] Echo Complete 11/08/24911 MR#: [id number] Acct: [id number] Name: SAPNA BULLARD Rep #:[id number] : 1940 84 From: Sharon Crouch MD Attending Dr: Dr. Yunior Desai MD Status: REG CLI Ordering Dr: Yunior Desai MD Date: 11/08/24 Location: CVS Sex: F C Admitted: Reason For Study [...] severe (3+) tricuspid valve insufficiency. Right ventricular systolicpressure estimated to be 41 mmHg. Aortic Valve Moderately calcific aortic valve. Mild aortic valve stenosis. Mean peak gradient8 mmHg. Aortic valve area 1.5 cm??. Mild aortic valve regurgitation. Pulmonic Valve The pulmonic valve is not well visualized. Great Vessels Mildly dilated aortic root. Pericardium/Pleural No pericardial effusion. MMode/2D Measurements & Calculations LVIDd: 4.5 cm IVSd: 1.0 cm [...] MV dec time: 0.30 sec Doppler Measurements & Calculations MV E max radha: 78.8 cm/sec [...] valve. Mild aortic valve stenosis. Mean peak gradient8 mmHg. Aortic valve area 1.5 cm??. Mild aortic valve regurgitation. Mildly dilated aortic root. Ordering Physician: Yunior Desai Referring Physician: Genevieve Wu Performed By: Tanya Grigsby, NANCY, RVT 11/09/24 1034 Date _ Sharon Crouch MD CC: Dr. Genevieve Wu MD; Dr. Yunior Desai MD ~ Date Dictated: 11/08/24 0912 Date Transcribed: 11/09/24 103 [employer]er: Signed [facility] Work Phone: Echo Completeon 11-08-2024 Echo Complete Normal [facility] Absolute lymphocyte countOrd ered By: Genevieve Wu on 10-31-2024 Lymphocytes Auto (Unsp spec) [#/Vol] 1.57 10*3/uL 0.83-4.51 [facility] Absolute neutrophil countOrd ered By: Genevieve Wu on 10-31-2024 Neutrophils (Bld) [#/Vol] 5.6 10*3/uL 2.0-7.7 [facility] Anion gap in Serum or Plasma Ordered By: Genevieve Wu on 10-31-2024 Anion gap [Moles/Vol] 11 mmol/L 5-15 [facility] Automated lymphocyte count a s percentage of total leukocytesOrdered By: Genevieve Wu on 10-31-2024 Lymphocytes/100 WBC Auto (Unsp spec) 18.6 % Low 19-41 [facility] BUN/creatinine ratioOrdered By: Genevieve Wu on 10-31-2024 Urea nitrogen/Creatinine [Mass ratio] 17.8 mg/mg 10-20 [facility] Basophil percentageOrdered B y: Genevieve Wu on 10-31-2024 Basophils/100 WBC (Bld) 0.6 % 0-1 [facility] Carbon dioxide, total [Moles /volume] in Central venous bloodOrdered By: Genevieve Wu on 10-31-2024 CO2 [Moles/Vol] 25.5 mmol/L 21.0-32.0 [facility] Chloride assayOrdered By: Abe Wu on 10-31-2024 Chloride [Moles/Vol] 103 mmol/L 98-108 [facility] Eosinophil percentageOrdered By: mihirgibslandsharon Wu on 10-31-2024 Eosinophils/100 WBC (Bld) 2.1 % 0-5 [facility] Erythrocyte distribution wid th ratioOrdered By: [facility] Baldwinsharon Wu on 10-31-2024 Erythrocyte distribution width (RBC) [Ratio] 14.3 % 11.6-14.6 [facility] Erythrocyte distribution wid th standard deviationOrdered By: mihirgibslandsharon Wu on 10-31-2024 Erythrocyte distribution width (RBC) [Ratio] 45.2 fl High 35.1-43.9 [facility] Glomerular filtration rate ( GFR) estimation/1.73 sq m using serum, plasma, or whole bOrdered By: haseeb Wu on 10-31-2024 GFR/1.73 sq M.predicted among non-blacks MDRD (S/P/Bld) [Vol rate/Area] 57 mL/min/{1.73_m2} Low >60 [facility] Comment on above: mL/min/1.73m2 CKD-EP I Creatinine Equation (2020) Hematocrit Auto (Bld) [Volum e fraction]Ordered By: haseeb Wu 10-31-2024 Hematocrit (Bld) [Volume fraction] 36.3 % Low 37-47 [facility] Hemoglobin measurementOrdere d By: haseeb Wu on 10-31-2024 Hemoglobin (Bld) [Mass/Vol] 11.3 g/dL Low 12.0-15.0 [facility] Immature granulocytes/100 WB C Auto (Bld)Ordered By: haseeb Wu on 10-31-2024 Immature granulocytes/100 WBC (Bld) 0.500 % 0.0-0.9 [facility] Comment on above: IG% - Immature Granu locytes (promyelocytes, myelocytes and metamyelocytes) > 1% indicates that a LEFT SHIFT is Present. MCV (mean corpuscular volume ) determinationOrdered By: Genevieve Wu on 10-31-2024 MCV (RBC) [Entitic vol] 86.2 fL 81-99 [facility] Mean corpuscular hemoglobin (MCH) determinationOrdered By: Genevieve Wu on 10-31-2024 MCH (RBC) [Entitic mass] 26.8 pg Low 27.0-32.0 [facility] Mean corpuscular hemoglobin concentration (MCHC) determinationOrdered By: Genevieve Wu on 10-31-2024 MCHC (RBC) [Mass/Vol] 31.1 g/dL Low 32-36 [facility] Mean platelet volume determi nationOrdered By: Genevieve Wu on 10-31-2024 Platelet mean volume (Bld) [Entitic vol] 9.2 fL 6.2-12.0 [facility] Monocyte percentageOrdered B y: Genevieve Wu on 10-31-2024 Monocytes/100 WBC (Bld) 11.9 % High 0-10 [facility] Neutrophil percentageOrdered By: mihirgibslandsharon Wu on 10-31-2024 Neutrophils/100 WBC (Bld) 66.3 % 47-70 [facility] Nucleated red blood cell per centageOrdered By: Genevieve Wu on 10-31-2024 Nucleated RBC/100 WBC (Bld) [Ratio] 0 % 0-5 [facility] Platelet countOrdered By: Abe mihirdion Wu on 10-31-2024 Platelets (Bld) [#/Vol] 353 10*3/uL 150-450 [facility] Potassium measurement (mass/ volume)Ordered By: Genevieve Wu on 10-31-2024 Potassium (Unsp spec) [Mass/Vol] 4.1 mmol/L 3.3-5.1 [facility] RBC Auto (Bld) [#/Vol]Ordere d By: Genevieve Wu on 10-31-2024 RBC (Bld) [#/Vol] 4.21 10*6/uL 4.2-5.4 [facility] Serum creatinine measurement (mass/volume)Ordered By: Genevieve Wu on 10-31-2024 Creatinine [Mass/Vol] 0.99 mg/dL 0.70-1.20 [facility] Serum glucose measurement (m ass/volume)Ordered By: Genevieve Wu on 10-31-2024 Glucose [Mass/Vol] 92 mg/dL 70-99 [facility] Serum or plasma calcium candice urement (mass/volume)Ordered By: Genevieve Wu on 10-31-2024 Calcium [Mass/Vol] 9.1 mg/dL 7.6-11.0 [facility] Serum or plasma urea nitroge n measurement (mass/volume)Ordered By: Genevieve Wu on 10-31-2024 Urea nitrogen [Mass/Vol] 18 mg/dL 4- [facility] Sodium levelOrdered By: Gerardo Wu on 10-31-2024 Sodium [Moles/Vol] 139 mmol/L 133-145 [facility] White blood cell (WBC) count Ordered By: Genevieve Wu on 10-31-2024 WBC (Bld) [#/Vol] 8.5 10*3/uL 4.4-11.0 [facility] Cardiology Visit Reporton Cardiology Visit Report Normal [facility] Absolute lymphocyte countOrd ered By: Genevieve Wu on 10-03-2024 Lymphocytes Auto (Unsp spec) [#/Vol] 2.02 10*3/uL 0.83-4.51 [facility] Absolute neutrophil countOrd ered By: Genevieve Wu on 10-03-2024 Neutrophils (Bld) [#/Vol] 5.3 10*3/uL 2.0-7.7 [facility] Anion gap in Serum or Plasma Ordered By: Genevieve Wu on 10-03-2024 Anion gap [Moles/Vol] 11 mmol/L 5-15 [facility] Automated lymphocyte count a s percentage of total leukocytesOrdered By: Genevieve Wu on 10-03-2024 Lymphocytes/100 WBC Auto (Unsp spec) 23.5 % [facility] BUN/creatinine ratioOrdered By: Genevieve Wu on 10-03-2024 Urea nitrogen/Creatinine [Mass ratio] 22.3 mg/mg High 10-20 [facility] Basophil percentageOrdered B y: Genevieve Wu on 10-03-2024 Basophils/100 WBC (Bld) 0.6 % 0-1 [facility] Bilirubin directOrdered By: Genevieve Wu on 10-03-2024 Bilirubin.direct [Mass/Vol] mg/dL 0.00-0.30 [facility] Bilirubin, totalOrdered By: Genevieve Wu on 10-03-2024 Bilirubin [Mass/Vol] 0.18 mg/dL 0.00-1.30 [facility] Carbon dioxide, total [Moles /volume] in Central venous bloodOrdered By: Genevieve Wu on 10-03-2024 CO2 [Moles/Vol] 28.4 mmol/L 21.0-32.0 [facility] Chloride assayOrdered By: Abe Wu on 10-03-2024 Chloride [Moles/Vol] 101 mmol/L 98-108 [facility] Eosinophil percentageOrdered By: haseeb Wu on 10-03-2024 Eosinophils/100 WBC (Bld) 2.4 % 0-5 [facility] Erythrocyte distribution wid th ratioOrdered By: Genevieve Wu on 10-03-2024 Erythrocyte distribution width (RBC) [Ratio] 14.8 % High 11.6-14.6 [facility] Erythrocyte distribution wid th standard deviationOrdered By: Genevieve Wu on 10-03-2024 Erythrocyte distribution width (RBC) [Ratio] 47.3 fl High 35.1-43.9 [facility] Glomerular filtration rate ( GFR) estimation/1.73 sq m using serum, plasma, or whole bOrdered By: Genevieve Wu on 10-03-2024 GFR/1.73 sq M.predicted among non-blacks MDRD (S/P/Bld) [Vol rate/Area] 61 mL/min/{1.73_m2} >60 [facility] Comment on above: mL/min/1.73m2 CKD-EP I Creatinine Equation (2020) Hematocrit Auto (Bld) [Volum e fraction]Ordered By: Genevieve Wu on 10-03-2024 Hematocrit (Bld) [Volume fraction] 39.7 % 37-47 [facility] Hemoglobin measurementOrdere d By: Genevieve Wu on 10-03-2024 Hemoglobin (Bld) [Mass/Vol] 12.1 g/dL 12.0-15.0 [facility] Immature granulocytes/100 WB C Auto (Bld)Ordered By: Genevieve Wu on 10-03-2024 Immature granulocytes/100 WBC (Bld) 0.800 % 0.0-0.9 [facility] Comment on above: IG% - Immature Granu locytes (promyelocytes, myelocytes and metamyelocytes) > 1% indicates that a LEFT SHIFT is Present. Laboratory - Chemistry and C hemistry - challengeOrdered By: Genevieve Wu on 10-03-2024 AST [Catalytic activity/Vol] 22 U/L <32 [facility] MCV (mean corpuscular volume ) determinationOrdered By: mihirgibslandsharon Wu on 10-03-2024 MCV (RBC) [Entitic vol] 87.3 fL 81-99 [facility] Mean corpuscular hemoglobin (MCH) determinationOrdered By: haseeb Wu on 10-03-2024 MCH (RBC) [Entitic mass] 26.6 pg Low 27.0-32.0 [facility] Mean corpuscular hemoglobin concentration (MCHC) determinationOrdered By: Genevieve Wu on 10-03-2024 MCHC (RBC) [Mass/Vol] 30.5 g/dL Low 32-36 [facility] Mean platelet volume determi nationOrdered By: mihirgibslandsharon Wu on 10-03-2024 Platelet mean volume (Bld) [Entitic vol] 9.1 fL 6.2-12.0 [facility] Monocyte percentageOrdered B y: Genevieve Wu on 10-03-2024 Monocytes/100 WBC (Bld) 11.4 % High 0-10 [facility] Neutrophil percentageOrdered By: haseeb Wu on 10-03-2024 Neutrophils/100 WBC (Bld) 61.3 % 47-70 [facility] Nucleated red blood cell per centageOrdered By: Genevieve Wu on 10-03-2024 Nucleated RBC/100 WBC (Bld) [Ratio] 0 % 0-5 [facility] Platelet countOrdered By: Abe Wu on 10-03-2024 Platelets (Bld) [#/Vol] 456 10*3/uL High 150-450 [facility] Potassium measurement (mass/ volume)Ordered By: Genevieve Wu on 10-03-2024 Potassium (Unsp spec) [Mass/Vol] 4.1 mmol/L 3.3-5.1 [facility] RBC Auto (Bld) [#/Vol]Ordere d By: Genevieve Wu on 10-03-2024 RBC (Bld) [#/Vol] 4.55 10*6/uL 4.2-5.4 [facility] Serum creatinine measurement (mass/volume)Ordered By: Genevieve Wu on 10-03-2024 Creatinine [Mass/Vol] 0.93 mg/dL 0.70-1.20 [facility] Serum globulin measurementOr dered By: Genevieve Wu on 10-03-2024 Globulin (S) [Mass/Vol] 3.5 g/dL 2.2-4.2 [facility] Serum glucose measurement (m ass/volume)Ordered By: Genevieve Wu 10-03-2024 Glucose [Mass/Vol] 95 mg/dL 70-99 [facility] Serum or plasma alanine carpio otransferase (ALT) measurementOrdered By: Genevieve Wu on 10-03-2024 ALT [Catalytic activity/Vol] 16 U/L <35 [facility] Serum or plasma albumin candice urement (mass/volume)Ordered By: Genevieve Wu on 10-03-2024 Albumin [Mass/Vol] 3.9 g/dL 3.4-4.8 [facility] Serum or plasma alkaline anthony sphatase measurementOrdered By: Genevieve Wu on 10-03-2024 ALP [Catalytic activity/Vol] 138 U/L High 35-104 [facility] Serum or plasma calcium candice urement (mass/volume)Ordered By: Genevieve Wu on 10-03-2024 Calcium [Mass/Vol] 10.0 mg/dL 7.6-11.0 [facility] Serum or plasma urea nitroge n measurement (mass/volume)Ordered By: Genevieve Blackjuanitadrew on 10-03-2024 Urea nitrogen [Mass/Vol] 21 mg/dL High 4-19 [facility] Sodium levelOrdered By: Gerardo ashley Jazmin on 10-03-2024 Sodium [Moles/Vol] 141 mmol/L 133-145 [facility] Total proteinOrdered By: Garry martin Waynejuanitadrew on 10-03-2024 Protein [Mass/Vol] 7.4 g/dL 5.9-8.4 [facility] White blood cell (WBC) count Ordered By: Genevieve Wu on 10-03-2024 WBC (Bld) [#/Vol] 8.6 10*3/uL 4.4-11.0 [facility] Pulmonary Visit Reporton Pulmonary Visit Report Normal [facility] Absolute lymphocyte countOrd ered By: Genevieve Wu on 08-29-2024 Lymphocytes Auto (Unsp spec) [#/Vol] 1.30 10*3/uL 0.83-4.51 [facility] Absolute neutrophil countOrd ered By: Genevieve Wu on 08-29-2024 Neutrophils (Bld) [#/Vol] 5.4 10*3/uL 2.0-7.7 [facility] Anion gap in Serum or Plasma Ordered By: Gerardokarleysharon Blackjuanitadrew on 08-29-2024 Anion gap [Moles/Vol] 9 mmol/L 5-15 [facility] Automated lymphocyte count a s percentage of total leukocytesOrdered By: Genevieve Wu on 08-29-2024 Lymphocytes/100 WBC Auto (Unsp spec) 16.7 % Low 19-41 [facility] BUN/creatinine ratioOrdered By: Genevieve Wu on 08-29-2024 Urea nitrogen/Creatinine [Mass ratio] 20.0 mg/mg 10-20 [facility] Basophil percentageOrdered B y: Genevieve Wu on 08-29-2024 Basophils/100 WBC (Bld) 0.6 % 0-1 [facility] Carbon dioxide, total [Moles /volume] in Central venous bloodOrdered By: Genevieve Wu on 08-29-2024 CO2 [Moles/Vol] 27.1 mmol/L 21.0-32.0 [facility] Chloride assayOrdered By: Abe Wu on 08-29-2024 Chloride [Moles/Vol] 101 mmol/L 98-108 [facility] Eosinophil percentageOrdered By: Genevieve Wu on 08-29-2024 Eosinophils/100 WBC (Bld) 2.2 % 0-5 [facility] Erythrocyte distribution wid th ratioOrdered By: mihirgibslandsharon Wu on 08-29-2024 Erythrocyte distribution width (RBC) [Ratio] 16.1 % High 11.6-14.6 [facility] Erythrocyte distribution wid th standard deviationOrdered By: Genevieve Wu on 08-29-2024 Erythrocyte distribution width (RBC) [Ratio] 50.8 fl High 35.1-43.9 [facility] Glomerular filtration rate ( GFR) estimation/1.73 sq m using serum, plasma, or whole bOrdered By: Genevieve Wu on 08-29-2024 GFR/1.73 sq M.predicted among non-blacks MDRD (S/P/Bld) [Vol rate/Area] 64 mL/min/{1.73_m2} >60 [facility] Comment on above: mL/min/1.73m2 CKD-EP I Creatinine Equation (2020) Hematocrit Auto (Bld) [Volum e fraction]Ordered By: Genevieve Wu on 08-29-2024 Hematocrit (Bld) [Volume fraction] 38.6 % 37-47 [facility] Hemoglobin measurementOrdere d By: Genevieve Wu on 08-29-2024 Hemoglobin (Bld) [Mass/Vol] 11.9 g/dL Low 12.0-15.0 [facility] Immature granulocytes/100 WB C Auto (Bld)Ordered By: Genevieve Wu on 08-29-2024 Immature granulocytes/100 WBC (Bld) 0.500 % 0.0-0.9 [facility] Comment on above: IG% - Immature Granu locytes (promyelocytes, myelocytes and metamyelocytes) > 1% indicates that a LEFT SHIFT is Present. MCV (mean corpuscular volume ) determinationOrdered By: Genevieve Wu on 08-29-2024 MCV (RBC) [Entitic vol] 86.2 fL 81-99 [facility] Mean corpuscular hemoglobin (MCH) determinationOrdered By: [facility] Baldwinsharon Wu on 08-29-2024 MCH (RBC) [Entitic mass] 26.6 pg Low 27.0-32.0 [facility] Mean corpuscular hemoglobin concentration (MCHC) determinationOrdered By: mihirgibslandsharon Wu on 08-29-2024 MCHC (RBC) [Mass/Vol] 30.8 g/dL Low 32-36 [facility] Mean platelet volume determi nationOrdered By: Genevieve Wu on 08-29-2024 Platelet mean volume (Bld) [Entitic vol] 8.9 fL 6.2-12.0 [facility] Monocyte percentageOrdered B y: Genevieve Wu on 08-29-2024 Monocytes/100 WBC (Bld) 11.2 % High 0-10 [facility] Neutrophil percentageOrdered By: [facility] Baldwins[facility] Wu on 08-29-2024 Neutrophils/100 WBC (Bld) 68.8 % 47-70 [facility] Nucleated red blood cell per centageOrdered By: Genevieve Wu on 08-29-2024 Nucleated RBC/100 WBC (Bld) [Ratio] 0 % 0-5 [facility] Platelet countOrdered By: Abe yasminsharon Wu on 08-29-2024 Platelets (Bld) [#/Vol] 389 10*3/uL 150-450 [facility] Potassium measurement (mass/ volume)Ordered By: Genevieve Wu on 08-29-2024 Potassium (Unsp spec) [Mass/Vol] 4.1 mmol/L 3.3-5.1 [facility] RBC Auto (Bld) [#/Vol]Ordere d By: Genevieve Wu on 08-29-2024 RBC (Bld) [#/Vol] 4.48 10*6/uL 4.2-5.4 [facility] Serum creatinine measurement (mass/volume)Ordered By: Abemihirkarleysharon Blackjuanitadrew on 08-29-2024 Creatinine [Mass/Vol] 0.90 mg/dL 0.70-1.20 [facility] Serum glucose measurement (m ass/volume)Ordered By: Genevieve Wu on 08-29-2024 Glucose [Mass/Vol] 87 mg/dL 70-99 [facility] Serum or plasma calcium candice urement (mass/volume)Ordered By: Abehaseeb Blackjuanitadrew on 08-29-2024 Calcium [Mass/Vol] 9.6 mg/dL 7.6-11.0 [facility] Serum or plasma urea nitroge n measurement (mass/volume)Ordered By: Genevieve Blackjuanitadrew on 08-29-2024 Urea nitrogen [Mass/Vol] 18 mg/dL 4-19 [facility] Sodium levelOrdered By: Gerardo ashley Waynejuanitadrew on 08-29-2024 Sodium [Moles/Vol] 138 mmol/L 133-145 [facility] White blood cell (WBC) count Ordered By: Abemihirkarleysharon Blackjuanitadrew on 08-29-2024 WBC (Bld) [#/Vol] 7.8 10*3/uL 4.4-11.0 [facility] OPERATIVE PROCEDURESon 08-12 OPERATIVE PROCEDURES [facility] OPERATIVE REPORT NAME ACCOUNT SEX AGE ADMIT DISCHARGE PT MED. RECORD# NUMBER DATE DATE TYPE SAPNA BULLARD [id number] 84 08/11/24 2 [id number] ROOM: DATE OF : 1940 DICTATING PHYSICIAN: Marcos White DATE OF PROCEDURE: August 11, 2024 SURGEON: Marcos White DO MACHINE REPAIR PERSON: None. ANESTHESIA: Local. PREPROCEDURE DIAGNOSES: 1. Lumbosacral [...] Marcos White DO 08/11/24 10:54 JOB #: [id number] Transcribed By: am 08/11/24 11:28 Electronically signed by: E-SIGN: MARCOS WHITE 08/12/24 14:42 Page 2 of 2 SAPNA BULLARD Operative Report Normal [facility] C-ARM USAGE 1 HOURon 025 C-ARM USAGE 1 HOUR [place] [address] Patient: SAPNA BULLARD. Phone#: : 1940 Age: 84 Gender: F Pt. Type: Out Account: [id number] Location: 062 Ordering: MARCOS WHITE Exam Date: 08/11/2024/10:47 Family Phys: NICCI LEMUS Charge Code: 695606 Physician: [place] Order #: [id number] Dose#: 1.12 [id number] PROCEDURE: C-ARM USEAGE 1 HR COMPARISON: [facility], , C-ARM USEAGE 1 HR, 02/05/2024, 11:01. INDICATIONS: [...] Richardson MD on 08/11/2024 at 12:24 Normal [facility] Chest WITH Contraston 2024 Chest WITH Contrast Normal [facility] Absolute lymphocyte countOrd ered By: Genevieve Wu on 08-01-2024 Lymphocytes Auto (Unsp spec) [#/Vol] 1.98 10*3/uL 0.83-4.51 [facility] Absolute neutrophil countOrd ered By: Genevieve Wu on 08-01-2024 Neutrophils (Bld) [#/Vol] 4.1 10*3/uL 2.0-7.7 [facility] Automated lymphocyte count a s percentage of total leukocytesOrdered By: Genevieve Wu on 08-01-2024 Lymphocytes/100 WBC Auto (Unsp spec) 25.7 % 19-41 [facility] Basophil percentageOrdered B y: Genevieve Wu on 08-01-2024 Basophils/100 WBC (Bld) 0.9 % 0-1 [facility] Blood urea nitrogen (BUN)/cr eatinine ratioOrdered By: Genevieve Wu on 08-01-2024 Urea nitrogen/Creatinine [Mass ratio] 20.6 mg/mg High 10-20 [facility] Carbon dioxide measurementOr dered By: Genevieve Wu on 08-01-2024 CO2 [Moles/Vol] 32.0 mmol/L 21.0-32.0 [facility] Chloride measurementOrdered By: Genevieve Wu on 08-01-2024 Chloride [Moles/Vol] 101 mmol/L 98-107 [facility] Eosinophil percentageOrdered By: Genevieve Wu on 08-01-2024 Eosinophils/100 WBC (Bld) 4.8 % 0-5 [facility] Erythrocyte distribution wid th ratioOrdered By: Genevieve Wu on 08-01-2024 Erythrocyte distribution width (RBC) [Ratio] 15.6 % High 11.6-14.6 [facility] Erythrocyte distribution wid th standard deviationOrdered By: haseeb Wu on 08-01-2024 Erythrocyte distribution width (RBC) [Ratio] 49.8 fl High 35.1-43.9 [facility] Glomerular filtration rate ( GFR) estimationOrdered By: Genevieve Wu on 08-01-2024 GFR/1.73 sq M.predicted among non-blacks MDRD (S/P/Bld) [Vol rate/Area] 55 mL/min/{1.73_m2} Low >60 [facility] Comment on above: Non- GFR Calc Glucose measurementOrdered B y: Genevieve Wu on 08-01-2024 Glucose [Mass/Vol] 85 mg/dL 74-106 [facility] Hematocrit Auto (Bld) [Volum e fraction]Ordered By: Genevieve Wu 08-01-2024 Hematocrit (Bld) [Volume fraction] 39.0 % 37-47 [facility] Hemoglobin measurementOrdere d By: Genevieve Wu on 08-01-2024 Hemoglobin (Bld) [Mass/Vol] 11.4 g/dL Low 12.0-15.0 [facility] Immature granulocytes/100 WB C Auto (Bld)Ordered By: Genevieve Wu on 08-01-2024 Immature granulocytes/100 WBC (Bld) 0.800 % 0.0-0.9 [facility] Comment on above: IG% - Immature Granu locytes (promyelocytes, myelocytes and metamyelocytes) > 1% indicates that a LEFT SHIFT is Present. MCV (mean corpuscular volume ) determinationOrdered By: Genevieve Wu on 08-01-2024 MCV (RBC) [Entitic vol] 87.4 fL 81-99 [facility] Mean corpuscular hemoglobin (MCH) determinationOrdered By: Genevieve Wu on 08-01-2024 MCH (RBC) [Entitic mass] 25.6 pg Low 27.0-32.0 [facility] Mean corpuscular hemoglobin concentration (MCHC) determinationOrdered By: Genevieve Wu on 08-01-2024 MCHC (RBC) [Mass/Vol] 29.2 g/dL Low 32-36 [facility] Mean platelet volume determi nationOrdered By: Genevieve Wu on 08-01-2024 Platelet mean volume (Bld) [Entitic vol] 9.0 fL 6.2-12.0 [facility] Monocyte percentageOrdered B y: Genevieve Wu on 08-01-2024 Monocytes/100 WBC (Bld) 14.2 % High 0-10 [facility] Neutrophil percentageOrdered By: Genevieve Wu on 08-01-2024 Neutrophils/100 WBC (Bld) 53.6 % 47-70 [facility] Nucleated red blood cell per centageOrdered By: Genevieve Wu on 08-01-2024 Nucleated RBC/100 WBC (Bld) [Ratio] 0 % 0-5 [facility] Platelet countOrdered By: Abe Wu on 08-01-2024 Platelets (Bld) [#/Vol] 408 10*3/uL 150-450 [facility] Potassium measurementOrdered By: Genevieve Wu on 08-01-2024 Potassium [Moles/Vol] 4.1 mmol/L 3.5-5.1 [facility] RBC Auto (Bld) [#/Vol]Ordere d By: Genevieve Wu on 08-01-2024 RBC (Bld) [#/Vol] 4.46 10*6/uL 4.2-5.4 [facility] Serum anion gap measurementO rdered By: Genevieve Wu on 08-01-2024 Anion gap [Moles/Vol] 6 mmol/L 5-15 [facility] Serum or plasma calcium candice urement (mass/volume)Ordered By: Abemihirkarleysharon Blackjuanitadrew on 08-01-2024 Calcium [Mass/Vol] 10.1 mg/dL 8.5-10.1 [facility] Serum or plasma creatinine m easurement (mass/volume)Ordered By: Gerardokarleysharon Blackjuanitadrew on 08-01-2024 Creatinine [Mass/Vol] 1.02 mg/dL 0.55-1.02 [facility] Comment on above: The validity of the calculated GFR & GFRAA in patients over 70 years has not been determined. Clinical correlation is essential. Serum or plasma urea nitroge n measurement (mass/volume)Ordered By: Genevieve Blackjuanitadrew on 08-01-2024 Urea nitrogen [Mass/Vol] 21 mg/dL High 7-18 [facility] Sodium levelOrdered By: Gerardo ashley Waynejuanitadrew on 08-01-2024 Sodium [Moles/Vol] 139 mmol/L 136-145 [facility] White blood cell (WBC) count Ordered By: Abemihirdion Waynejuanitadrew on 08-01-2024 WBC (Bld) [#/Vol] 7.7 10*3/uL 4.4-11.0 [facility] Neurology Visit Reporton Neurology Visit Report Normal [facility] Absolute lymphocyte countOrd ered By: Gerardokarleysharon Blackjuanitadrew on 06-30-2024 Lymphocytes Auto (Unsp spec) [#/Vol] 1.62 10*3/uL 0.83-4.51 [facility] Absolute neutrophil countOrd ered By: Salliesharon Blackjuanitadrew on 06-30-2024 Neutrophils (Bld) [#/Vol] 4.2 10*3/uL 2.0-7.7 [facility] Automated lymphocyte count a s percentage of total leukocytesOrdered By: Abemihirkarleysharon Blackjuanitadrew on 06-30-2024 Lymphocytes/100 WBC Auto (Unsp spec) 22.7 % 19-41 [facility] Basophil percentageOrdered B y: Salliesharon Blackjuanitadrew on 06-30-2024 Basophils/100 WBC (Bld) 0.6 % 0-1 [facility] Blood urea nitrogen (BUN)/cr eatinine ratioOrdered By: Genevieve Wu on 06-30-2024 Urea nitrogen/Creatinine [Mass ratio] 27.1 mg/mg High 10-20 [facility] Carbon dioxide measurementOr dered By: Genevieve Wu on 06-30-2024 CO2 [Moles/Vol] 29.0 mmol/L 21.0-32.0 [facility] Chloride measurementOrdered By: Genevieve Wu on 06-30-2024 Chloride [Moles/Vol] 106 mmol/L 98-107 [facility] Eosinophil percentageOrdered By: Genevieve Wu on 06-30-2024 Eosinophils/100 WBC (Bld) 3.2 % 0-5 [facility] Erythrocyte distribution wid th ratioOrdered By: Genevieve Wu on 06-30-2024 Erythrocyte distribution width (RBC) [Ratio] 15.3 % High 11.6-14.6 [facility] Erythrocyte distribution wid th standard deviationOrdered By: Genevieve Wu on 06-30-2024 Erythrocyte distribution width (RBC) [Ratio] 47.4 fl High 35.1-43.9 [facility] Glomerular filtration rate ( GFR) estimationOrdered By: Genevieve Wu on 06-30-2024 GFR/1.73 sq M.predicted among non-blacks MDRD (S/P/Bld) [Vol rate/Area] 65 mL/min/{1.73_m2} >60 [facility] Comment on above: Non- GFR Calc Glucose measurementOrdered B y: Genevieve Wu on 06-30-2024 Glucose [Mass/Vol] 87 mg/dL 74-106 [facility] Hematocrit Auto (Bld) [Volum e fraction]Ordered By: Genevieve Wu on 06-30-2024 Hematocrit (Bld) [Volume fraction] 32.5 % Low 37-47 [facility] Hemoglobin measurementOrdere d By: Genevieve Wu on 06-30-2024 Hemoglobin (Bld) [Mass/Vol] 9.6 g/dL Low 12.0-15.0 [facility] Immature granulocytes/100 WB C Auto (Bld)Ordered By: Genevieve Wu on 06-30-2024 Immature granulocytes/100 WBC (Bld) 0.800 % 0.0-0.9 [facility] Comment on above: IG% - Immature Granu locytes (promyelocytes, myelocytes and metamyelocytes) > 1% indicates that a LEFT SHIFT is Present. MCV (mean corpuscular volume ) determinationOrdered By: Genevieve Wu on 06-30-2024 MCV (RBC) [Entitic vol] 87.1 fL 81-99 [facility] Mean corpuscular hemoglobin (MCH) determinationOrdered By: Genevieve Wu on 06-30-2024 MCH (RBC) [Entitic mass] 25.7 pg Low 27.0-32.0 [facility] Mean corpuscular hemoglobin concentration (MCHC) determinationOrdered By: Genevieve Wu on 06-30-2024 MCHC (RBC) [Mass/Vol] 29.5 g/dL Low 32-36 [facility] Mean platelet volume determi nationOrdered By: Genevieve Wu on 06-30-2024 Platelet mean volume (Bld) [Entitic vol] 8.8 fL 6.2-12.0 [facility] Monocyte percentageOrdered B y: Genevieve Wu on 06-30-2024 Monocytes/100 WBC (Bld) 13.4 % High 0-10 [facility] Neutrophil percentageOrdered By: Genevieve Wu on 06-30-2024 Neutrophils/100 WBC (Bld) 59.3 % 47-70 [facility] Nucleated red blood cell per centageOrdered By: Genevieve Wu on 06-30-2024 Nucleated RBC/100 WBC (Bld) [Ratio] 0 % 0-5 [facility] Platelet countOrdered By: Abe Wu on 06-30-2024 Platelets (Bld) [#/Vol] 420 10*3/uL 150-450 [facility] Potassium measurementOrdered By: Genevieve Wu on 06-30-2024 Potassium [Moles/Vol] 4.3 mmol/L 3.5-5.1 [facility] RBC Auto (Bld) [#/Vol]Ordere d By: Genevieve Wu on 06-30-2024 RBC (Bld) [#/Vol] 3.73 10*6/uL Low 4.2-5.4 [facility] Serum anion gap measurementO rdered By: Genevieve Wu on 06-30-2024 Anion gap [Moles/Vol] 5 mmol/L 5-15 [facility] Serum or plasma calcium candice urement (mass/volume)Ordered By: Gerardokarleysharon Blackjuanitadrew on 06-30-2024 Calcium [Mass/Vol] 9.2 mg/dL 8.5-10.1 [facility] Serum or plasma creatinine m easurement (mass/volume)Ordered By: Abemihirdion Waynechey on 06-30-2024 Creatinine [Mass/Vol] 0.89 mg/dL 0.55-1.02 [facility] Comment on above: The validity of the calculated GFR & GFRAA in patients over 70 years has not been determined. Clinical correlation is essential. Serum or plasma urea nitroge n measurement (mass/volume)Ordered By: Abemihirdion Waynechey on 06-30-2024 Urea nitrogen [Mass/Vol] 24 mg/dL High 7-18 [facility] Sodium levelOrdered By: Gerardo Wu on 06-30-2024 Sodium [Moles/Vol] 140 mmol/L 136-145 [facility] White blood cell (WBC) count Ordered By: Abemihirdion Waynechey on 06-30-2024 WBC (Bld) [#/Vol] 7.2 10*3/uL 4.4-11.0 [facility] ANCAon 06-16-2024 Atypical pANCA <1:20 Normal Neg:<1:20 [facility] Comment on above: Order Comment: PT. R EFUSED BLOOD DRAW. SON ASKED IF ID COME BACK LATER. Result Comment: The atypical pANCA pattern has been observed in asignificant percentage of patients with ulcerative colitis,primary sclerosing cholangitis and autoimmune hepatitis. Performed By: #### L 4600.0100, L505.7010, L3100.5450, L3300.1200, L3500.3600 ####[facility] [address] [place], [address] Cytoplasmic Ab <1:20 Normal Neg:<1:20 [facility] Comment on above: Order Comment: PT. R EFUSED BLOOD DRAW. SON ASKED IF ID COME BACK LATER. Performed By: #### L 4600.0100, L505.7010, L3100.5450, L3300.1200, L3500.3600 ####[facility] [address] [place], [address] Perinuclear Ab. <1:20 Normal Neg:<1:20 [facility] Comment on above: Order Comment: PT. R EFUSED BLOOD DRAW. SON ASKED IF ID COME BACK LATER. Result Comment: The presence of positive fluorescence exhibiting P-ANCA orC-ANCA patterns alone is not specific for the diagnosis ofWegener's Granulomatosis (WG) or microscopic polyangiitis.Decisions about treatment should not be based solely onANCA IFA results. The [employer] ANCA Group Consensusrecommends follow up testing of positive sera with both MA-3 and MPO-ANCA enzyme immunoassays. As many as 5% serumsamples are positive only by EIA. Ref. AM J Clin [id number];111:507-513. Performed By: #### L 4600.0100, L505.7010, L3100.5450, L3300.1200, L3500.3600 ####[facility] [address] [place], [address] Aspergillus Antibodieson Asp. flavus Negative Normal Neg:<1:1 [facility] Comment on above: Order Comment: PT. R EFUSED BLOOD DRAW. SON ASKED IF ID COME BACK LATER. Performed By: #### L 4600.0100, L505.7010, L3100.5450, L3300.1200, L3500.3600 ####[facility] [address] [place], [address] Asp. fumigatus Negative Normal Neg:<1:1 [facility] Comment on above: Order Comment: PT. R EFUSED BLOOD DRAW. SON ASKED IF ID COME BACK LATER. Performed By: #### L 4600.0100, L505.7010, L3100.5450, L3300.1200, L3500.3600 ####[facility] [address] [place], [address] Asp. niger Negative Normal Neg:<1:1 [facility] Comment on above: Order Comment: PT. R EFUSED BLOOD DRAW. SON ASKED IF ID COME BACK LATER. Performed By: #### L 4600.0100, L505.7010, L3100.5450, L3300.1200, L3500.3600 ####[facility] [address] [place], [address] CCP IgG Antibodieson 025 CCP IgG Ab. 8 units Normal 0-19 [facility] Comment on above: Order Comment: PT. R EFUSED BLOOD DRAW. SON ASKED IF ID COME BACK LATER. Result Comment: Nega tive <20 Weak positive 20 - 39 Moderate positive 40 - 59 Strong positive >59Performed at: [facility] [address] [id number] Director: Curtis Rubio PhD, Phone: [phone] at: [facility] [address] [id number] Director: Angie Moulton MD, Phone: [phone] Performed By: #### L 4600.0100, L505.7010, L3100.5450, L3300.1200, L3500.3600 ####[facility] [address] [place], [address] Basic Metabolic Profile (BMP )on 06-15-2024 BUN Normal 7-18 [facility] Comment on above: Result Comment: Canc elled via OM: Order cancelled - Patient discharged Performed By: #### L 100.0100, L500.2500 ####[facility] [address] [place], [address] BUN/CRE Normal 10-20 [facility] Comment on above: Result Comment: Canc elled via OM: Order cancelled - Patient discharged Performed By: #### L 100.0100, L500.2500 ####[facility] [address] [place], [address] CA,Total Normal 8.5-10.1 [facility] Comment on above: Result Comment: Canc elled via OM: Order cancelled - Patient discharged Performed By: #### L 100.0100, L500.2500 ####[facility] [address] [place], [address] CL Normal 98-107 [facility] Comment on above: Result Comment: Canc elled via OM: Order cancelled - Patient discharged Performed By: #### L 100.0100, L500.2500 ####[facility] [address] [place], [address] CO2 Normal 21.0-32.0 [facility] Comment on above: Result Comment: Canc elled via OM: Order cancelled - Patient discharged Performed By: #### L 100.0100, L500.2500 ####[facility] [address] [place], [address] CREAT,SERUM Normal 0.55-1.02 [facility] Comment on above: Result Comment: Canc elled via OM: Order cancelled - Patient discharged Performed By: #### L 100.0100, L500.2500 ####[facility] [address] [place], [address] EST GFR Normal >60 [facility] Comment on above: Result Comment: Canc elled via OM: Order cancelled - Patient discharged Performed By: #### L 100.0100, L500.2500 ####[facility] [address] [place], [address] EST GFR - AA Normal >60 [facility] Comment on above: Result Comment: Canc elled via OM: Order cancelled - Patient discharged Performed By: #### L 100.0100, L500.2500 ####[facility] [address] [place], [address] GAP Normal 5-15 [facility] Comment on above: Result Comment: Canc elled via OM: Order cancelled - Patient discharged Performed By: #### L 100.0100, L500.2500 ####[facility] [address] [place], [address] GLU Normal 74-106 [facility] Comment on above: Result Comment: Canc elled via OM: Order cancelled - Patient discharged Performed By: #### L 100.0100, L500.2500 ####[facility] [address] [place], [address] Potassium Normal 3.5-5.1 [facility] Comment on above: Result Comment: Canc elled via OM: Order cancelled - Patient discharged Performed By: #### L 100.0100, L500.2500 ####[facility] [address] [place], [address] Basic Metabolic Profile (BMP) Normal 136-145 [facility] Comment on above: Result Comment: Canc elled via OM: Order cancelled - Patient discharged Performed By: #### L 100.0100, L500.2500 ####[facility] [address] [place], [address] CBC W/Diff, Automatedon 01-0 Absolute Neut Normal 2.0-7.7 [facility] Comment on above: Result Comment: Canc elled via OM: Order cancelled - Patient discharged Performed By: #### L 100.0100, L500.2500 ####[facility] [address] [place], [address] HCT Normal 37-47 [facility] Comment on above: Result Comment: Canc elled via OM: Order cancelled - Patient discharged Performed By: #### L 100.0100, L500.2500 ####[facility] [address] [place], [address] HGB Normal 12.0-15.0 [facility] Comment on above: Result Comment: Canc elled via OM: Order cancelled - Patient discharged Performed By: #### L 100.0100, L500.2500 ####[facility] [address] [place], [address] MCH Normal 27.0-32.0 [facility] Comment on above: Result Comment: Canc elled via OM: Order cancelled - Patient discharged Performed By: #### L 100.0100, L500.2500 ####[facility] [address] [place], [address] MCHC Normal 32-36 [facility] Comment on above: Result Comment: Canc elled via OM: Order cancelled - Patient discharged Performed By: #### L 100.0100, L500.2500 ####[facility] [address] [place], [address] MCV Normal 81-99 [facility] Comment on above: Result Comment: Canc elled via OM: Order cancelled - Patient discharged Performed By: #### L 100.0100, L500.2500 ####[facility] [address] [place], [address] NEUT% Normal 47-70 [facility] Comment on above: Result Comment: Canc elled via OM: Order cancelled - Patient discharged Performed By: #### L 100.0100, L500.2500 ####[facility] [address] [place], [address] PLT Normal 150-450 [facility] Comment on above: Result Comment: Canc elled via OM: Order cancelled - Patient discharged Performed By: #### L 100.0100, L500.2500 ####[facility] [address] [place], [address] RBC Normal 4.2-5.4 [facility] Comment on above: Result Comment: Canc elled via OM: Order cancelled - Patient discharged Performed By: #### L 100.0100, L500.2500 ####[facility] [address] [place], [address] RDW CV Normal 11.6-14.6 [facility] Comment on above: Result Comment: Canc elled via OM: Order cancelled - Patient discharged Performed By: #### L 100.0100, L500.2500 ####[facility] [address] [place], [address] RDW SD Normal 35.1-43.9 [facility] Comment on above: Result Comment: Canc elled via OM: Order cancelled - Patient discharged Performed By: #### L 100.0100, L500.2500 ####[facility] [address] [place], [address] WBC Normal 4.4-11.0 [facility] Comment on above: Result Comment: Canc elled via OM: Order cancelled - Patient discharged Performed By: #### L 100.0100, L500.2500 ####[facility] [address] [place], [address] Basic Metabolic Profile (BMP )on 06-14-2024 BUN/CRE 22.1 RATIO High 10-20 [facility] Comment on above: Performed By: #### L 100.0100, L500.2500 ####[facility] [address] [place], [address] CA,Total 9.2 mg/dL Normal 8.5-10.1 [facility] Comment on above: Performed By: #### L 100.0100, L500.2500 ####[facility] [address] [place], [address] Chloride [Moles/Vol] 104 mmol/L Normal 98-107 [facility]; [facility] Work Phone: Comment on above: Performed By: #### L 100.0100, L500.2500 ####[facility] [address] [place], [place], [phone] CO2 [Moles/Vol] 29.0 mmol/L Normal 21.0-32.0 [facility] Work Phone: Comment on above: Performed By: #### L 100.0100, L500.2500 ####[facility] [address] [place], [place], [phone] Creatinine [Mass/Vol] 0.95 mg/dL Normal 0.55-1.02 [facility]; [facility] Work Phone: Comment on above: Result Comment: The validity of the calculated GFR GFRAA in patients over70 years has not been determined. Clinical correlation isessential. Performed By: #### L 100.0100, L500.2500 ####[facility] [address] [place], [address] ECRCL 32.19 ml/min Normal [facility]; [facility] Work Phone: Comment on above: Performed By: #### L 100.0100, L500.2500 ####[facility] [address] [place] [place], [address] EST GFR - AA 72 mL/min Normal >60 [facility]; [facility] Work Phone: Comment on above: Result Comment: Afri can Icelandic GFR Calc Performed By: #### L 100.0100, L500.2500 ####[facility] [address] [place], [address] GAP 4 Low 5-15 [facility]; [facility] Work Phone: Comment on above: Performed By: #### L 100.0100, L500.2500 ####[facility] [address] [place], [address] GFR/1.73 sq M.predicted among non-blacks MDRD (S/P/Bld) [Vol rate/Area] 60 mL/min/{1.73_m2} Normal >60 [facility]; [facility] Work Phone: Comment on above: Result Comment: Non- GFR Calc Performed By: #### L 100.0100, L500.2500 ####[facility] [address] [place], [address] Glucose [Mass/Vol] 99 mg/dL Normal 74-106 [facility]; [facility] Work Phone: Comment on above: Performed By: #### L 100.0100, L500.2500 ####[facility] [address] [place], [address] Potassium [Moles/Vol] 3.2 mmol/L Low 3.5-5.1 [facility]; [facility] Work Phone: Comment on above: Performed By: #### L 100.0100, L500.2500 ####[facility] [address] [place], [address] Sodium [Moles/Vol] 137 mmol/L Normal 136-145 [facility].; [facility] Work Phone: Comment on above: Performed By: #### L 100.0100, L500.2500 ####[facility] [address] [place], [address] Urea nitrogen [Mass/Vol] 21 mg/dL High 7-18 [facility]; [facility] Work Phone: Comment on above: Performed By: #### L 100.0100, L500.2500 ####[facility] [address] [place], [address] CBC W/Diff, Automatedon 12-3 Absolute Lymph 1.57 X10 3/uL Normal 0.83-4.51 [facility] Comment on above: Performed By: #### L 100.0100, L500.2500 ####[facility] [address] [place], [address] Absolute Neut 6.5 X10 3/uL Normal 2.0-7.7 [facility] Comment on above: Performed By: #### L 100.0100, L500.2500 ####[facility] [address] [place], [address] Basophils/100 WBC (Bld) 0.3 % Normal 0-1 [facility]; [facility] Work Phone: Comment on above: Performed By: #### L 100.0100, L500.2500 ####[facility] [address] [place], [address] Eosinophils/100 WBC (Bld) 1.8 % Normal 0-5 [facility]; [facility] Work Phone: Comment on above: Performed By: #### L 100.0100, L500.2500 ####[facility] [address] [place], [place], [phone] Erythrocyte distribution width (RBC) [Ratio] 14.3 % Normal 11.6-14.6 [facility]; [facility] Work Phone: Comment on above: Performed By: #### L 100.0100, L500.2500 ####[facility] [address] [place], [place], [phone] Hematocrit (Bld) [Volume fraction] 34.3 % Low 37-47 [facility]; [facility] Work Phone: Comment on above: Performed By: #### L 100.0100, L500.2500 ####[facility] [address] [place], [place], [phone] Hemoglobin (Bld) [Mass/Vol] 10.4 g/dL Low 12.0-15.0 [facility]; [facility] Work Phone: Comment on above: Performed By: #### L 100.0100, L500.2500 ####[facility] [address] [place], [place], [phone] IG% 0.900 Normal 0.0-0.9 [facility]; [facility] Work Phone: Comment on above: Result Comment: IG% - Immature Granulocytes (promyelocytes, myelocytes andmetamyelocytes) > 1% indicates that a LEFT SHIFT is Present. Performed By: #### L 100.0100, L500.2500 ####[facility] [address] [place], [address] Lymphocytes/100 WBC (Bld) 16.3 % Low 19-41 [facility]; [facility] Work Phone: Comment on above: Performed By: #### L 100.0100, L500.2500 ####[facility] [address] [place], [address] MCH (RBC) [Entitic mass] 26.0 pg Low 27.0-32.0 [facility]; [facility] Work Phone: Comment on above: Performed By: #### L 100.0100, L500.2500 ####[facility] [address] [place], [place], [phone] MCHC (RBC) [Mass/Vol] 30.3 g/dL Low 32-36 [facility]; [facility], [facility] Work Phone: Comment on above: Performed By: #### L 100.0100, L500.2500 ####[facility] [address] [place], [place], [phone] MCV (RBC) [Entitic vol] 85.8 fL Normal 81-99 [facility]; [facility] Work Phone: Comment on above: Performed By: #### L 100.0100, L500.2500 ####[facility] [address] [place], [address] Monocytes/100 WBC (Bld) 13.2 % High 0-10 [facility]; [facility], [facility] Work Phone: Comment on above: Performed By: #### L 100.0100, L500.2500 ####[facility] [address] [place], [address] Neutrophils/100 WBC (Bld) 67.5 % Normal 47-70 [facility]; [facility] Work Phone: Comment on above: Performed By: #### L 100.0100, L500.2500 ####[facility] [address] [place], [address] Nucleated RBC (Bld) [#/Vol] 0 10*3/uL Normal 0-5 [facility]; [facility] Work Phone: Comment on above: Performed By: #### L 100.0100, L500.2500 ####[facility] [address] [place], [address] Platelet mean volume (Bld) [Entitic vol] 8.7 fL Normal 6.2-12.0 [facility]; [facility] Work Phone: Comment on above: Performed By: #### L 100.0100, L500.2500 ####[facility] [address] [place], [address] Platelets (Bld) [#/Vol] 401 10*3/uL Normal 150-450 [facility]; [facility] Work Phone: Comment on above: Performed By: #### L 100.0100, L500.2500 ####[facility] [address] [place], [address] RBC (Bld) [#/Vol] 4.00 10*6/uL Low 4.2-5.4 [facility]; [facility] Work Phone: Comment on above: Performed By: #### L 100.0100, L500.2500 ####[facility] [address] [place], [place], [address] RDW SD 44.6 fL High 35.1-43.9 [facility].; [facility]. Work Phone: Comment on above: Performed By: #### L 100.0100, L500.2500 ####[facility] [address] [place], [place], [phone] WBC (Bld) [#/Vol] 9.6 10*3/uL Normal 4.4-11.0 [facility]; [facility]. Work Phone: Comment on above: Performed By: #### L 100.0100, L500.2500 ####[facility] [address] [facility] [place], [place], [phone] Laboratory - Chemistry and C hemistry - challengeon 06-14-2024 Magnesium [Mass/Vol] 9.2 mg/dL Normal 8.5 - 1 0.1 mg/dL [facility] [facility].; [facility]. Work Phone: No Panel Informationon 06-14 Absolute Lymph 1.57 {X10_3/uL} Normal 0.83 - 4.51 {X10_3/uL} [facility]; [facility]. Work Phone: Absolute Neut 6.5 {X10_3/uL} Normal 2.0 - 7.7 {X10_3/uL} [facility].; [facility]. Work Phone: BUN/CRE 22.1 {RATIO} Abnormal 10 - 20 {RATIO} [facility].; [facility]. Work Phone: MICHAEL w/ Reflex Mult Confirmon 06-13-2024 MICHAEL TABLE TNP Normal [facility] Comment on above: Order Comment: PT. R EFUSED BLOOD DRAW. SON ASKED IF ID COME BACK LATER. Performed By: #### L 4600.0100, L505.7010, L3100.5450, L3300.1200, L3500.3600 ####[facility] [address] [place], [place], [id number] 12 Lead EKGon 06-11-2024 12 Lead EKG Normal [facility] L501.4020on 06-11-2024 TROPONIN-I HS 25 pg/mL Normal 3.0-54.0 [facility]; [facility] Work Phone: Comment on above: Order Comment: 'TROP ' Serial specimen #1, #2 or #3: 3 Result Comment: Plea se Note: New Test Units and Gender Specific Reference Ranges. For more information see Policy Stat Procedure [place] High Sensitivity Troponin (TNIH) and attachments. Performed By: #### L 501.4020 ####[facility] [address] [place], [place], [phone] TROPONIN-I HS 21 pg/mL Normal 3.0-54.0 [facility]; [facility] Work Phone: Comment on above: Order Comment: 'TROP ' Serial specimen #1, #2 or #3: 2 Result Comment: Plea se Note: New Test Units and Gender Specific Reference Ranges. For more information see Policy Stat Procedure [place] High Sensitivity Troponin (TNIH) and attachments. Performed By: #### L 501.4020 ####[facility] [address] [place], [place], [phone] TROPONIN-I HS 23 pg/mL Normal 3.0-54.0 [facility].; [facility] Work Phone: Comment on above: Order Comment: 'TROP ' Serial specimen #1, #2 or #3: 1 Result Comment: Jaguar leigh Note: New Test Units and Gender Specific Reference Ranges. For more information see Policy Stat Procedure [place] High Sensitivity Troponin (TNIH) and attachments. Performed By: #### L 501.4020 ####[facility] [address] [place], [address] No Panel Informationon 06-[address] [facility].; [facility], [facility]. Work Phone: MICHAEL,DIRECT Negative Normal [facility].; [facility], [facility]. Work Phone: ANTI-CENT B AB Normal [facility].; [facility] Work Phone: ANTI-DNA (DS)AB Normal [facility].; [facility] Work Phone: ANTI-JULIA-1 Normal [facility].; [facility], [facility]. Work Phone: ANTI-SS-A Normal [facility].; [facility], [facility]. Work Phone: ANTI-SS-B Normal [facility].; [facility], [facility]. Work Phone: ANTICHROMATIN Normal [facility].; [facility] Work Phone: ANTISCLERODERM Normal [facility].; [facility] Work Phone: Asp. flavus Negative [facility].; [facility], [facility]. Work Phone: Asp. fumigatus Negative [facility].; [facility] Work Phone: Asp. niger Negative [facility].; [facility] Work Phone: Atypical pANCA <1:20 Normal [facility] [place], [facility]. Work Phone: CCP IgG Ab. 8 {units} Normal 0 - 19 {units} [facility].; [facility] Work Phone: Cytoplasmic Ab <1:20 Normal [facility] [place] [facility] Work Phone: Perinuclear Ab. <1:20 Normal [facility].; [facility], [facility]. Work Phone: DOMESTIC FREIGHT FORWARDER Ab [facility].; [facility], [facility]. Work Phone: CORTES Ab [facility].; [facility], [facility]. Work Phone: Quantiferon TB-Gold+on 06-10 QFT MITOGEN SARAH > 10.00 Normal . [facility] Comment on above: Performed By: #### L 3400.8000 ####[facility] [address] [place], [address] QFT NIL VALUE 0.08 IU/mL Normal . [facility] Comment on above: Performed By: #### L 3400.8000 ####[facility] [address] [place], [address] QFT TB GOLD+ Comment Normal . [facility] Comment on above: Result Comment: Sarmad tiFERON-TB Gold Plus is a qualitative indirect test forM tuberculosis infection (including disease) and isintended for use in conjunction with risk assessment,radiography, and other medical and diagnostic evaluations.The QuantiFERON-TB Gold Plus result is determined bysubtracting the Nil value from either TB antigen (Ag)value. The Mitogen tube serves as a control for the test. Performed By: #### L 3400.8000 ####[facility] [address] [place], [address] QFT TB POS CRIT Negative Normal Negative [facility] Comment on above: Result Comment: No r esponse to M tuberculosis antigens detected.Infection with M tuberculosis is unlikely, but high riskindividuals should be considered for additional testing(ATS/IDSA/CDC Clinical Practice Guidelines, 2017). Thereference range is an Antigen minus Nil result of <0.35IU/mL.The specimen received for QuantiFERON testing was incubatedby the ordering institution. Specific procedures outlinedin our Directory of Services and in the package insert forthe QuantiFERON Gold (In Tube) test must be followed toenable for proper stimulation of cells for the productionof interferon gamma. Chemiluminescence immunoassaymethodologyPerformed at: [facility] [id number] Director: Curtis Rubio PhD, Phone: [phone] Performed By: #### L 3400.8000 ####[facility] [address] [place], [address] QFT TB1+ AG SARAH 0.08 IU/mL Normal . [facility] Comment on above: Performed By: #### L 3400.8000 ####[facility] [address] [place], [address] QFT TB2+ AG SARAH 0.08 IU/mL Normal . [facility] Comment on above: Performed By: #### L 3400.8000 ####[facility] [address] [place], [place], [address] Rheumatoid Factoron 06-10-20 24 RHEUMATOID FAC < 10.0 Normal <15 [facility]; [facility] Work Phone: Comment on above: Order Comment: PT. R EFUSED BLOOD DRAW. SON ASKED IF ID COME BACK LATER.PT REFUSED BLOOD DRAW AT NOON. NURSE WAS INFORMED WILL ADDTO AM DRAW. Performed By: #### L 4600.0100, L505.7010, L3100.5450, L3300.1200, L3500.3600 ####[facility] [address] [place], [address] Consultation - Intensiviston 06-09-2024 Consultation - Kerrick Kleaner Operator Normal [facility] Basic Metabolic Profile (BMP )on 06-08-2024 BUN/CRE 17.3 RATIO Normal 04-03 [facility] Comment on above: Performed By: #### L 501.5200, L300.3900, L501.2300, L500.2500, L100.0100, L501.9520, L500.3400, L500.4050 ####[facility] [address] [place], [place], [phone] CA,Total 8.6 mg/dL Normal 8.5-10.1 [facility] Comment on above: Performed By: #### L 501.5200, L300.3900, L501.2300, L500.2500, L100.0100, L501.9520, L500.3400, L500.4050 ####[facility] [address] [place], [place], [phone] Chloride [Moles/Vol] 105 mmol/L Normal 98-107 [facility] HospitalMar[facility]; [facility]. Work Phone: Comment on above: Performed By: #### L 501.5200, L300.3900, L501.2300, L500.2500, L100.0100, L501.9520, L500.3400, L500.4050 ####[facility] [address] [place], [place], [phone] CO2 [Moles/Vol] 27.0 mmol/L Normal 21.0-32.0 [facility] Work Phone: Comment on above: Performed By: #### L 501.5200, L300.3900, L501.2300, L500.2500, L100.0100, L501.9520, L500.3400, L500.4050 ####[facility] [address] [place], [address] Creatinine [Mass/Vol] 0.75 mg/dL Normal 0.55-1.02 [facility]; [facility] Work Phone: Comment on above: Result Comment: The validity of the calculated GFR GFRAA in patients over70 years has not been determined. Clinical correlation isessential. Performed By: #### L 501.5200, L300.3900, L501.2300, L500.2500, L100.0100, L501.9520, L500.3400, L500.4050 ####[facility] [address] [place], [address] ECRCL 38.23 ml/min Normal [facility]; [facility] Work Phone: Comment on above: Performed By: #### L 501.5200, L300.3900, L501.2300, L500.2500, L100.0100, L501.9520, L500.3400, L500.4050 ####[facility] [address] [place], [place], [phone] EST GFR - AA 94 mL/min Normal >60 [facility]; [facility] Work Phone: Comment on above: Result Comment: Afri can Icelandic GFR Calc Performed By: #### L 501.5200, L300.3900, L501.2300, L500.2500, L100.0100, L501.9520, L500.3400, L500.4050 ####[facility] [address] [place], [place], [phone] GAP 6 Normal 5-15 [facility]; [facility] Work Phone: Comment on above: Performed By: #### L 501.5200, L300.3900, L501.2300, L500.2500, L100.0100, L501.9520, L500.3400, L500.4050 ####[facility] [address] [facility] [place], [address] GFR/1.73 sq M.predicted among non-blacks MDRD (S/P/Bld) [Vol rate/Area] 78 mL/min/{1.73_m2} Normal >60 [facility]; [facility] Work Phone: Comment on above: Result Comment: Non- GFR Calc Performed By: #### L 501.5200, L300.3900, L501.2300, L500.2500, L100.0100, L501.9520, L500.3400, L500.4050 ####[facility] [address] [place], [address] Glucose [Mass/Vol] 84 mg/dL Normal 74-106 [facility]; [facility] Work Phone: Comment on above: Performed By: #### L 501.5200, L300.3900, L501.2300, L500.2500, L100.0100, L501.9520, L500.3400, L500.4050 ####[facility] [address] [place], [place], [phone] Potassium [Moles/Vol] 3.6 mmol/L Normal 3.5-5.1 [facility]; [facility] Work Phone: Comment on above: Performed By: #### L 501.5200, L300.3900, L501.2300, L500.2500, L100.0100, L501.9520, L500.3400, L500.4050 ####[facility] [address] [place], [place], [phone] Sodium [Moles/Vol] 138 mmol/L Normal 136-145 [facility]; [facility]. Work Phone: Comment on above: Performed By: #### L 501.5200, L300.3900, L501.2300, L500.2500, L100.0100, L501.9520, L500.3400, L500.4050 ####[facility] [address] [place], [place], [phone] Urea nitrogen [Mass/Vol] 13 mg/dL Normal 7-18 [facility]; [facility] Work Phone: Comment on above: Performed By: #### L 501.5200, L300.3900, L501.2300, L500.2500, L100.0100, L501.9520, L500.3400, L500.4050 ####[facility] [address] [place], [place], [phone] CBC W/Diff, Automatedon 12- Absolute Lymph 1.28 X10 3/uL Normal 0.83-4.51 [facility] Comment on above: Performed By: #### L 501.5200, L300.3900, L501.2300, L500.2500, L100.0100, L501.9520, L500.3400, L500.4050 ####[facility] [address] [facility] [place], [place], [phone] Absolute Neut 3.9 X10 3/uL Normal 2.0-7.7 [facility] Comment on above: Performed By: #### L 501.5200, L300.3900, L501.2300, L500.2500, L100.0100, L501.9520, L500.3400, L500.4050 ####[facility] [address] [place], [place], [phone] Basophils/100 WBC (Bld) 0.3 % Normal 0-1 [facility]; [facility] Work Phone: Comment on above: Performed By: #### L 501.5200, L300.3900, L501.2300, L500.2500, L100.0100, L501.9520, L500.3400, L500.4050 ####[facility] [address] [facility] [place], [place], [phone] Eosinophils/100 WBC (Bld) 3.2 % Normal 0-5 [facility]; [facility] Work Phone: Comment on above: Performed By: #### L 501.5200, L300.3900, L501.2300, L500.2500, L100.0100, L501.9520, L500.3400, L500.4050 ####[facility] [address] [place], [place], [phone] Erythrocyte distribution width (RBC) [Ratio] 14.4 % Normal 11.6-14.6 [facility]; [facility] Work Phone: Comment on above: Performed By: #### L 501.5200, L300.3900, L501.2300, L500.2500, L100.0100, L501.9520, L500.3400, L500.4050 ####[facility] [address] [place], [address] Hematocrit (Bld) [Volume fraction] 31.3 % Low 37-47 [facility]; [facility] Work Phone: Comment on above: Performed By: #### L 501.5200, L300.3900, L501.2300, L500.2500, L100.0100, L501.9520, L500.3400, L500.4050 ####[facility] [address] [place], [address] Hemoglobin (Bld) [Mass/Vol] 9.4 g/dL Low 12.0-15.0 [facility]; [facility] Work Phone: Comment on above: Performed By: #### L 501.5200, L300.3900, L501.2300, L500.2500, L100.0100, L501.9520, L500.3400, L500.4050 ####[facility] [address] [place], [address] IG% 1.000 High 0.0-0.9 [facility]; [facility] Work Phone: Comment on above: Result Comment: IG% - Immature Granulocytes (promyelocytes, myelocytes andmetamyelocytes) > 1% indicates that a LEFT SHIFT is Present. Performed By: #### L 501.5200, L300.3900, L501.2300, L500.2500, L100.0100, L501.9520, L500.3400, L500.4050 ####[facility] [address] [facility] [place], [place], [phone] Lymphocytes/100 WBC (Bld) 20.7 % Normal 19-41 [facility]; [facility] Work Phone: Comment on above: Performed By: #### L 501.5200, L300.3900, L501.2300, L500.2500, L100.0100, L501.9520, L500.3400, L500.4050 ####[facility] [address] [place], [place], [phone] MCH (RBC) [Entitic mass] 25.5 pg Low 27.0-32.0 [facility]; [facility] Work Phone: Comment on above: Performed By: #### L 501.5200, L300.3900, L501.2300, L500.2500, L100.0100, L501.9520, L500.3400, L500.4050 ####[facility] [address] [place], [place], [phone] MCHC (RBC) [Mass/Vol] 30.0 g/dL Low 32-36 [facility]; [facility] Work Phone: Comment on above: Performed By: #### L 501.5200, L300.3900, L501.2300, L500.2500, L100.0100, L501.9520, L500.3400, L500.4050 ####[facility] [address] [place], [place], [phone] MCV (RBC) [Entitic vol] 84.8 fL Normal 81-99 [facility]; [facility] Work Phone: Comment on above: Performed By: #### L 501.5200, L300.3900, L501.2300, L500.2500, L100.0100, L501.9520, L500.3400, L500.4050 ####[facility] [address] [place] [place], [phone] Monocytes/100 WBC (Bld) 12.0 % High 0-10 [facility]; [facility] Work Phone: Comment on above: Performed By: #### L 501.5200, L300.3900, L501.2300, L500.2500, L100.0100, L501.9520, L500.3400, L500.4050 ####[facility] [address] [facility] [place], [place], [phone] Neutrophils/100 WBC (Bld) 62.8 % Normal 47-70 [facility]; [facility] Work Phone: Comment on above: Performed By: #### L 501.5200, L300.3900, L501.2300, L500.2500, L100.0100, L501.9520, L500.3400, L500.4050 ####[facility] [address] [facility] [place], [phone] Nucleated RBC (Bld) [#/Vol] 0 10*3/uL Normal 0-5 [facility]; [facility] Work Phone: Comment on above: Performed By: #### L 501.5200, L300.3900, L501.2300, L500.2500, L100.0100, L501.9520, L500.3400, L500.4050 ####[facility] [address] [place], [place], [phone] Platelet mean volume (Bld) [Entitic vol] 8.9 fL Normal 6.2-12.0 [facility]; [facility] Work Phone: Comment on above: Performed By: #### L 501.5200, L300.3900, L501.2300, L500.2500, L100.0100, L501.9520, L500.3400, L500.4050 ####[facility] [address] [facility] [place], [place], [phone] Platelets (Bld) [#/Vol] 342 10*3/uL Normal 150-450 [facility]; [facility] Work Phone: Comment on above: Performed By: #### L 501.5200, L300.3900, L501.2300, L500.2500, L100.0100, L501.9520, L500.3400, L500.4050 ####[facility] [address] [place], [place], [phone] RBC (Bld) [#/Vol] 3.69 10*6/uL Low 4.2-5.4 [facility]; [facility] Work Phone: Comment on above: Performed By: #### L 501.5200, L300.3900, L501.2300, L500.2500, L100.0100, L501.9520, L500.3400, L500.4050 ####[facility] [address] [place], [place], [phone] RDW SD 44.8 fL High 35.1-43.9 [facility]; [facility] Work Phone: Comment on above: Performed By: #### L 501.5200, L300.3900, L501.2300, L500.2500, L100.0100, L501.9520, L500.3400, L500.4050 ####[facility] [address] [place], [address] WBC (Bld) [#/Vol] 6.2 10*3/uL Normal 4.4-11.0 [facility]; [facility] Work Phone: Comment on above: Performed By: #### L 501.5200, L300.3900, L501.2300, L500.2500, L100.0100, L501.9520, L500.3400, L500.4050 ####[facility] [address] [place], [place], [phone] Comprehensive Metabolic Prof ilon 06-08-2024 Albumin/Globulin [Mass ratio] 0.7 {ratio} Low 0.9-2.4 [facility]; [facility] Work Phone: Comment on above: Performed By: #### L 501.5200, L300.3900, L501.2300, L500.2500, L100.0100, L501.9520, L500.3400, L500.4050 ####[facility] [address] [place], [place], [phone] Laboratory - Chemistry and C hemistry - challengeon 06-08-2024 Magnesium [Mass/Vol] 8.6 mg/dL Normal 8.5 - 1 0.1 mg/dL [facility].; [facility] Work Phone: Liver Profileon 06-08-2024 Albumin [Mass/Vol] 2.5 g/dL Low 3.2-5.0 [facility].; [facility] Work Phone: Comment on above: Performed By: #### L 501.5200, L300.3900, L501.2300, L500.2500, L100.0100, L501.9520, L500.3400, L500.4050 ####[facility] [address] [place], [place], [phone] ALK P 96 U/L Normal 45-117 [facility]; [facility] Work Phone: Comment on above: Performed By: #### L 501.5200, L300.3900, L501.2300, L500.2500, L100.0100, L501.9520, L500.3400, L500.4050 ####[facility] [address] [facility] [place], [place], [phone] ALT [Catalytic activity/Vol] 17 U/L Normal 13-56 [facility]; [facility] Work Phone: Comment on above: Performed By: #### L 501.5200, L300.3900, L501.2300, L500.2500, L100.0100, L501.9520, L500.3400, L500.4050 ####[facility] [address] [facility] [place], [place], [phone] AST [Catalytic activity/Vol] 15 U/L Normal 15-37 [facility]; [facility] Work Phone: Comment on above: Performed By: #### L 501.5200, L300.3900, L501.2300, L500.2500, L100.0100, L501.9520, L500.3400, L500.4050 ####[facility] [address] [place], [phone] Bilirubin [Mass/Vol] 0.30 mg/dL Normal 0.20-1.00 [facility].; [facility] Work Phone: Comment on above: Result Comment: For patients on eltrombopag therapy, use of Dimension [place] TBIL is not recommended. Performed By: #### L 501.5200, L300.3900, L501.2300, L500.2500, L100.0100, L501.9520, L500.3400, L500.4050 ####[facility] [address] [place], [address] Bilirubin.direct [Mass/Vol] 0.09 mg/dL Normal 0.00-0.30 [facility].; [facility] Work Phone: Comment on above: Performed By: #### L 501.5200, L300.3900, L501.2300, L500.2500, L100.0100, L501.9520, L500.3400, L500.4050 ####[facility] [address] [place], [address] Globulin (S) [Mass/Vol] 3.4 g/dL Normal 2.2-4.2 [facility].; [facility] Work Phone: Comment on above: Performed By: #### L 501.5200, L300.3900, L501.2300, L500.2500, L100.0100, L501.9520, L500.3400, L500.4050 ####[facility] [address] [place], [place], [phone] T PROT 5.9 g/dL Low 6.4-8.2 [facility]; [facility] Work Phone: Comment on above: Performed By: #### L 501.5200, L300.3900, L501.2300, L500.2500, L100.0100, L501.9520, L500.3400, L500.4050 ####[facility] [address] [place], [place], [phone] Magnesiumon 06-08-2024 Magnesium [Mass/Vol] 1.9 mg/dL Normal 1.6-2.6 [facility]; [facility] Work Phone: Comment on above: Performed By: #### L 501.5200, L300.3900, L501.2300, L500.2500, L100.0100, L501.9520, L500.3400, L500.4050 ####[facility] [address] [facility] [place], [address] No Panel Informationon 06-08 Absolute Lymph 1.28 {X10_3/uL} Normal 0.83 - 4.51 {X10_3/uL} [facility]; [facility]. Work Phone: Absolute Neut 3.9 {X10_3/uL} Normal 2.0 - 7.7 {X10_3/uL} [facility].; [facility]. Work Phone: BUN/CRE 17.3 {RATIO} Normal 10 - 20 {RATIO} [facility].; [facility] [facility]. Work Phone: QFT MITOGEN SARAH > 10.00 Normal [facility].; [facility]. Work Phone: QFT NIL VALUE 0.08 {IU/mL} Normal [facility].; [facility]. Work Phone: QFT TB GOLD+ Comment Normal [facility].; [facility]. Work Phone: QFT TB POS CRIT Negative Normal [facility].; [facility]. Work Phone: QFT TB1+ AG SARAH 0.08 {IU/mL} Normal [facility].; [facility]. Work Phone: QFT TB2+ AG SARAH 0.08 {IU/mL} Normal [facility].; [facility]. Work Phone: TSH 1.990 {uIU/mL} Normal 0.358 - 3.740 {uIU/mL} [facility].; [facility] Work Phone: Phosphoruson 06-08-2024 Phosphate [Mass/Vol] 3.3 mg/dL Normal 2.5-4.9 [facility]; [facility] Work Phone: Comment on above: Performed By: #### L 501.5200, L300.3900, L501.2300, L500.2500, L100.0100, L501.9520, L500.3400, L500.4050 ####[facility] [address] [place], [place], [id number] Prothrombin Time w/INRon INR Coag (PPP) [Relative time] 1.1 {INR} Normal [facility]; [facility] Work Phone: Comment on above: Performed By: #### L 501.5200, L300.3900, L501.2300, L500.2500, L100.0100, L501.9520, L500.3400, L500.4050 ####[facility] [address] [place], [place], [phone] PT Coag (PPP) [Time] 13.7 s Normal 11.7-14.9 [facility]; [facility] Work Phone: Comment on above: Performed By: #### L 501.5200, L300.3900, L501.2300, L500.2500, L100.0100, L501.9520, L500.3400, L500.4050 ####[facility] [address] [place], [place], [address] Thyroid Stim Hormone (TSH)on 06-08-2024 TSH 1.990 uIU/mL Normal 0.358-3.74 0 [facility] Comment on above: Performed By: #### L 501.5200, L300.3900, L501.2300, L500.2500, L100.0100, L501.9520, L500.3400, L500.4050 ####[facility] [address] [place], [place], [phone] 12 Lead EKGon 06-07-2024 12 Lead EKG Normal [facility] Basic Metabolic Profile (BMP )on 06-07-2024 BUN/CRE 14.4 RATIO Normal 10-20 [facility] Comment on above: Order Comment: 'TROP ' Serial specimen #1, #2 or #3: 1 Performed By: #### L 100.0100, L501.2450, L503.6005, L500.2500, L300.3900, L300.4310, L501.4020, L500.3400 ####[facility] [address] [place], [address] CA,Total 8.8 mg/dL Normal 8.5-10.1 [facility] Comment on above: Order Comment: 'TROP ' Serial specimen #1, #2 or #3: 1 Performed By: #### L 100.0100, L501.2450, L503.6005, L500.2500, L300.3900, L300.4310, L501.4020, L500.3400 ####[facility] [address] [facility] [place], [place], [phone] Chloride [Moles/Vol] 104 mmol/L Normal 98-107 [facility]; [facility] Work Phone: Comment on above: Order Comment: 'TROP ' Serial specimen #1, #2 or #3: 1 Performed By: #### L 100.0100, L501.2450, L503.6005, L500.2500, L300.3900, L300.4310, L501.4020, L500.3400 ####[facility] [address] [place], [place], [phone] CO2 [Moles/Vol] 28.0 mmol/L Normal 21.0-32.0 [facility] Work Phone: Comment on above: Order Comment: 'TROP ' Serial specimen #1, #2 or #3: 1 Performed By: #### L 100.0100, L501.2450, L503.6005, L500.2500, L300.3900, L300.4310, L501.4020, L500.3400 ####[facility] [address] [facility] [place], [place], [phone] Creatinine [Mass/Vol] 0.97 mg/dL Normal 0.55-1.02 [facility]; [facility] Work Phone: Comment on above: Order Comment: 'TROP ' Serial specimen #1, #2 or #3: 1 Result Comment: The validity of the calculated GFR GFRAA in patients over70 years has not been determined. Clinical correlation isessential. Performed By: #### L 100.0100, L501.2450, L503.6005, L500.2500, L300.3900, L300.4310, L501.4020, L500.3400 ####[facility] [address] [facility] [place], [address] EST GFR - AA 71 mL/min Normal >60 [facility]; [facility] Work Phone: Comment on above: Order Comment: 'TROP ' Serial specimen #1, #2 or #3: 1 Result Comment: Afri can Icelandic GFR Calc Performed By: #### L 100.0100, L501.2450, L503.6005, L500.2500, L300.3900, L300.4310, L501.4020, L500.3400 ####[facility] [address] [place], [place], [phone] GAP 6 Normal 5-15 [facility]; [facility] Work Phone: Comment on above: Order Comment: 'TROP ' Serial specimen #1, #2 or #3: 1 Performed By: #### L 100.0100, L501.2450, L503.6005, L500.2500, L300.3900, L300.4310, L501.4020, L500.3400 ####[facility] [address] [place], [place], [phone] GFR/1.73 sq M.predicted among non-blacks MDRD (S/P/Bld) [Vol rate/Area] 58 mL/min/{1.73_m2} Low >60 [facility]; [facility] Work Phone: Comment on above: Order Comment: 'TROP ' Serial specimen #1, #2 or #3: 1 Result Comment: Non- GFR Calc Performed By: #### L 100.0100, L501.2450, L503.6005, L500.2500, L300.3900, L300.4310, L501.4020, L500.3400 ####[facility] [address] [place], [place], [phone] Glucose [Mass/Vol] 88 mg/dL Normal 74-106 [facility]; [facility] Work Phone: Comment on above: Order Comment: 'TROP ' Serial specimen #1, #2 or #3: 1 Performed By: #### L 100.0100, L501.2450, L503.6005, L500.2500, L300.3900, L300.4310, L501.4020, L500.3400 ####[facility] [address] [place], [place], [phone] Potassium [Moles/Vol] 4.1 mmol/L Normal 3.5-5.1 [facility]; [facility] Work Phone: Comment on above: Order Comment: 'TROP ' Serial specimen #1, #2 or #3: 1 Result Comment: Slig ht Hemolysis, Result may be falsely increased. Performed By: #### L 100.0100, L501.2450, L503.6005, L500.2500, L300.3900, L300.4310, L501.4020, L500.3400 ####[facility] [address] [place], [place], [phone] Sodium [Moles/Vol] 138 mmol/L Normal 136-145 [facility]; [facility] Work Phone: Comment on above: Order Comment: 'TROP ' Serial specimen #1, #2 or #3: 1 Performed By: #### L 100.0100, L501.2450, L503.6005, L500.2500, L300.3900, L300.4310, L501.4020, L500.3400 ####[facility] [address] [place], [place], [phone] Urea nitrogen [Mass/Vol] 14 mg/dL Normal 7-18 [facility]; [facility] Work Phone: Comment on above: Order Comment: 'TROP ' Serial specimen #1, #2 or #3: 1 Performed By: #### L 100.0100, L501.2450, L503.6005, L500.2500, L300.3900, L300.4310, L501.4020, L500.3400 ####[facility] [address] [place], [address] Brain/Head without Contrasto n 06-07-2024 Brain/Head without Contrast Normal [facility] CBC W/Diff, Automatedon 12-2 PLT EST ADEQUATE Normal ADEQ [facility]; [facility] Work Phone: Comment on above: Performed By: #### L 100.0100, L501.2450, L503.6005, L500.2500, L300.3900, L300.4310, L501.4020, L500.3400 ####[facility] [address] [place], [address] Chest 1 View (Portable)on Chest 1 View (Portable) Normal [facility] Chest WITH Contraston 2023 Chest WITH Contrast Normal [facility] Emergency Department Summary on 06-07-2024 Emergency Department Summary Normal [facility] H AND P Exam - Hospitaliston 06-07-2024 H&P Exam - Hospitalist Normal [facility] L501.4020on 06-07-2024 TROPONIN-I HS 9 pg/mL Normal 3.0-54.0 [facility].; [facility] Work Phone: Comment on above: Order Comment: 'TROP ' Serial specimen #1, #2 or #3: 1 Result Comment: Plea se Note: New Test Units and Gender Specific Reference Ranges. For more information see Policy Stat Procedure [place] High Sensitivity Troponin (TNIH) and attachments. Performed By: #### L 100.0100, L501.2450, L503.6005, L500.2500, L300.3900, L300.4310, L501.4020, L500.3400 ####[facility] [address] [place], [address] Laboratory - Chemistry and C hemistry - challengeon 06-07-2024 Magnesium [Mass/Vol] 8.8 mg/dL Normal 8.5 - 1 0.1 mg/dL [facility].; [facility]. Work Phone: Laboratory - Hematology and Cell countson 06-07-2024 Basophils/100 WBC (Bld) 0.6 % Normal 0 - 1 [facility].; [facility]. Work Phone: Eosinophils/100 WBC (Bld) 2.2 % Normal 0 - 5 [facility].; [facility]. Work Phone: Erythrocyte distribution width (RBC) [Ratio] 14.5 % Normal 11.6 - 14.6 [facility]; [facility] Work Phone: Hematocrit (Bld) [Volume fraction] 34.6 % Abnormal 37 - 47 [facility]; [facility] Work Phone: Hemoglobin (Bld) [Mass/Vol] 10.4 g/dL Abnormal 12.0 - 15.0 g/dL [facility]; [facility] Work Phone: Lymphocytes/100 WBC (Bld) 19.7 % Normal 19 - 41 [facility]; [facility] Work Phone: MCH (RBC) [Entitic mass] 25.7 pg Abnormal 27.0 - 32.0 pg [facility]; [facility] Work Phone: MCHC (RBC) [Mass/Vol] 30.1 g/dL Abnormal 32 - 3 6 g/dL [facility]; [facility] Work Phone: MCV (RBC) [Entitic vol] 85.6 fL Normal 81 - 99 fL [facility]; [facility] Work Phone: Monocytes/100 WBC (Bld) 11.0 % Abnormal 0 - 10 [facility]; [facility] Work Phone: Neutrophils/100 WBC (Bld) 65.9 % Normal 47 - 70 [facility]; [facility] Work Phone: Nucleated RBC (Bld) [#/Vol] 0 10*3/uL Normal 0 - 5 [facility].; [facility]. Work Phone: Platelet mean volume (Bld) [Entitic vol] 9.8 fL Normal 6.2 - 12.[address] [facility].; [facility]. Work Phone: RBC (Bld) [#/Vol] 4.04 10*6/uL Abnormal 4.2 - 5.4 {M/mm3} [facility].; [facility]. Work Phone: WBC (Bld) [#/Vol] 6.4 10*3/uL Normal 4.4 - 11.0 K/mm3 [facility].; [facility]. Work Phone: Laboratory - Microbiology an d Antimicrobial susceptibilityon 06-07-2024 Bacteria identified Cx Nom (Unsp spec) 0 SEEN Normal [facility]; [facility]. Work Phone: Laboratory - Specimen inform ationon 06-07-2024 Clarity (U) Clear Normal [facility]; [facility]. Work Phone: Color (U) Yellow Normal [facility]; [facility]. Work Phone: Laboratory - Urinalysison Nitrite Ql (U) Negative Normal [facility]3]; [facility]. Work Phone: Lactic Acidon 06-07-2024 Lactate [Moles/Vol] 1.1 mmol/L Normal 0.4-1.9 [facility]; [facility] Work Phone: Comment on above: Order Comment: Y Performed By: #### L 100.0100, L501.2450, L503.6005, L500.2500, L300.3900, L300.4310, L501.4020, L500.3400 ####[facility] [address] [place], [phone] Lipaseon 06-07-2024 Lipase [Catalytic activity/Vol] 75 U/L Normal 13-75 [facility]; [facility] Work Phone: Comment on above: Order Comment: 'TROP ' Serial specimen #1, #2 or #3: 1 Result Comment: Jaguar leigh note:LIPASE revised reference range effective 22.New Lipase methodology. Expected to produce lower valuesthan the previous assay method.NEW Reference Range: 13 - 75 U/L Performed By: #### L 100.0100, L501.2450, L503.6005, L500.2500, L300.3900, L300.4310, L501.4020, L500.3400 ####[facility] [address] [facility] [place], [address] Liver Profileon 06-07-2024 Albumin [Mass/Vol] 2.7 g/dL Low 3.2-5.0 [facility]; [facility] Work Phone: Comment on above: Order Comment: 'TROP ' Serial specimen #1, #2 or #3: 1 Performed By: #### L 100.0100, L501.2450, L503.6005, L500.2500, L300.3900, L300.4310, L501.4020, L500.3400 ####[facility] [address] [place], [place], [phone] ALK P 106 U/L Normal 45-117 [facility]; [facility] Work Phone: Comment on above: Order Comment: 'TROP ' Serial specimen #1, #2 or #3: 1 Performed By: #### L 100.0100, L501.2450, L503.6005, L500.2500, L300.3900, L300.4310, L501.4020, L500.3400 ####[facility] [address] [place], [address] ALT [Catalytic activity/Vol] 18 U/L Normal 13-56 [facility]; [facility] Work Phone: Comment on above: Order Comment: 'TROP ' Serial specimen #1, #2 or #3: 1 Performed By: #### L 100.0100, L501.2450, L503.6005, L500.2500, L300.3900, L300.4310, L501.4020, L500.3400 ####[facility] [address] [place], [address] AST [Catalytic activity/Vol] 25 U/L Normal 15-37 [facility]; [facility] Work Phone: Comment on above: Order Comment: 'TROP ' Serial specimen #1, #2 or #3: 1 Result Comment: Slig ht Hemolysis, Result may be falsely increased. Performed By: #### L 100.0100, L501.2450, L503.6005, L500.2500, L300.3900, L300.4310, L501.4020, L500.3400 ####[facility] [address] [place], [address] Bilirubin [Mass/Vol] 0.40 mg/dL Normal 0.20-1.00 [facility]; [facility] Work Phone: Comment on above: Order Comment: 'TROP ' Serial specimen #1, #2 or #3: 1 Result Comment: For patients on eltrombopag therapy, use of Dimension [place] TBIL is not recommended. Performed By: #### L 100.0100, L501.2450, L503.6005, L500.2500, L300.3900, L300.4310, L501.4020, L500.3400 ####[facility] [address] [facility] [address], [phone] Bilirubin.direct [Mass/Vol] 0.08 mg/dL Normal 0.00-0.30 [facility]; [facility] Work Phone: Comment on above: Order Comment: 'TROP ' Serial specimen #1, #2 or #3: 1 Performed By: #### L 100.0100, L501.2450, L503.6005, L500.2500, L300.3900, L300.4310, L501.4020, L500.3400 ####[facility] [address] [facility] [place], [phone] Globulin (S) [Mass/Vol] 3.9 g/dL Normal 2.2-4.2 [facility]; [facility] Work Phone: Comment on above: Order Comment: 'TROP ' Serial specimen #1, #2 or #3: 1 Performed By: #### L 100.0100, L501.2450, L503.6005, L500.2500, L300.3900, L300.4310, L501.4020, L500.3400 ####[facility] [address] [facility] [place], [phone] T PROT 6.6 g/dL Normal 6.4-8.2 [facility]; [facility] Work Phone: Comment on above: Order Comment: 'TROP ' Serial specimen #1, #2 or #3: 1 Performed By: #### L 100.0100, L501.2450, L503.6005, L500.2500, L300.3900, L300.4310, L501.4020, L500.3400 ####[facility] [address] [place], [address] M100.678on 06-07-2024 M100.678 Pending SARS-CoV-2 (COVID 19) A Positive A INFLUENZA A Negative INFLUENZA B Negative RSV PCR Negative SARS-CoV-2 (COVID 19 PCR) Normal [facility] Comment on above: Performed By: #### L 400.0001, M100.678 ####[facility] [address] [facility] [place], [address] M8200.1000on 06-07-2024 M8200.1000 Normal Reference Ran ge = Negative MRSA DNA Nose Ql ZAID+probe GeneXpert Instrument, PCR method MRSA PCR MRSA NEGATIVE Normal [facility] Comment on above: Performed By: #### M 8200.1000 ####[facility] [address] [facility] [place], [address] No Panel Informationon 06-07 Absolute Lymph 1.26 {X10_3/uL} Normal 0.83 - 4.51 {X10_3/uL} [facility] FOSTER Kaboodle [facility]. Work Phone: Absolute Neut 4.2 {X10_3/uL} Normal 2.0 - 7.7 {X10_3/uL} [facility].; [facility] Work Phone: BILIRUBIN URINE Negative Normal [facility].; [facility]. Work Phone: BUN/CRE 14.4 {RATIO} Normal 10 - 20 {RATIO} [facility].; [facility]. Work Phone: GLUCOSE, UR Normal Normal [facility]; [facility]. Work Phone: IG% 0.600 Normal 0.0 - 0.9 [facility].; [facility]. Work Phone: KETONE UR Negative Normal [facility].; [facility]. Work Phone: LEUK ESTERASE Negative Normal [facility].; [facility]. Work Phone: M100.[address] [facility].; [facility]. Work Phone: M8200.[address] [facility].; [facility]. Work Phone: OCCULT BLOOD-UR 10 /ul Abnormal [facility]; [facility] Work Phone: pH UR 7.0 Normal 5.0 - 8.0 [facility].; [facility]. Work Phone: PLT Normal 150 - 450 K/mm3 [facility]; [facility] Work Phone: PROT DIPSTX Negative Normal [facility]; [facility] Work Phone: RDW SD 44.9 fL Abnormal 35.1 - 43.9 fL [facility]; [facility] Work Phone: SP.GR. DIPSTX 1.010 Normal 1.002 - 1.030 [facility]; [facility] Work Phone: UROBILI Normal Normal [facility]; [facility] Work Phone: Partial Thromboplast Timeon 06-07-2024 aPTT Coag (Bld) [Time] 21.3 s Low 24.1-36.2 [facility]; [facility] Work Phone: Comment on above: Performed By: #### L 100.0100, L501.2450, L503.6005, L500.2500, L300.3900, L300.4310, L501.4020, L500.3400 ####[facility] [address] [place], [place], [id number] Prothrombin Time w/INRon INR Coag (PPP) [Relative time] 0.9 {INR} Normal [facility]; [facility] Work Phone: Comment on above: Performed By: #### L 100.0100, L501.2450, L503.6005, L500.2500, L300.3900, L300.4310, L501.4020, L500.3400 ####[facility] [address] [facility] [place], [address] PT Coag (PPP) [Time] 12.2 s Normal 11.7-14.9 [facility].; [facility]. Work Phone: Comment on above: Performed By: #### L 100.0100, L501.2450, L503.6005, L500.2500, L300.3900, L300.4310, L501.4020, L500.3400 ####[facility] [address] [place], [address] Urinalysis, Completeon 06-07 EPI,SQUAMOUS 0-5 SEEN Normal 5-10 [facility].; [facility]. Work Phone: Comment on above: Order Comment: YA CTOR TO SPECIFY Performed By: #### L 400.0001, M100.678 ####[facility] [address] [place], [address] RBC 0-5 SEEN Normal 0-5 [facility]; [facility]. Work Phone: Comment on above: Order Comment: YA CTOR TO SPECIFY Performed By: #### L 400.0001, M100.678 ####[facility] [address] [place], [address] BACTERIA 0 SEEN Normal None Seen [facility] Comment on above: Order Comment: YA CTOR TO SPECIFY Performed By: #### L 400.0001, M100.678 ####[facility] [address] [place], [address] Mucus Ql (Urine sed) [address] [facility].; [facility]. Work Phone: Comment on above: Order Comment: YA CTOR TO SPECIFY Performed By: #### L 400.0001, M100.678 ####[facility] [address] [place], [address] WBC 0 SEEN Normal 0-5 [facility].; [facility]. Work Phone: Comment on above: Order Comment: YA CTOR TO SPECIFY Performed By: #### L 400.0001, M100.678 ####[facility] [address] [place], [address] CBC W/Diff, Automatedon 12 Absolute Lymph 0.79 X10 3/uL Low 0.83-4.51 [facility] Comment on above: Performed By: #### L 100.0100, L500.4050, L503.6005 ####[facility] [address] [place], [address] Absolute Neut 3.5 X10 3/uL Normal 2.0-7.7 [facility] Comment on above: Performed By: #### L 100.0100, L500.4050, L503.6005 ####[facility] [address] [place], [address] Basophils/100 WBC (Bld) 0.6 % Normal 0-1 [facility]; [facility] Work Phone: Comment on above: Performed By: #### L 100.0100, L500.4050, L503.6005 ####[facility] [address] [place], [address] Eosinophils/100 WBC (Bld) 0.4 % Normal 0-5 [facility]; [facility] Work Phone: Comment on above: Performed By: #### L 100.0100, L500.4050, L503.6005 ####[facility] [address] [place], [address] Erythrocyte distribution width (RBC) [Ratio] 14.6 % Normal 11.6-14.6 [facility]; [facility] Work Phone: Comment on above: Performed By: #### L 100.0100, L500.4050, L503.6005 ####[facility] [address] [facility] [place], [address] Hematocrit (Bld) [Volume fraction] 35.5 % Low 37-47 [facility]; [facility] Work Phone: Comment on above: Performed By: #### L 100.0100, L500.4050, L503.6005 ####[facility] [address] [place], [address] Hemoglobin (Bld) [Mass/Vol] 10.5 g/dL Low 12.0-15.0 [facility]; [facility] Work Phone: Comment on above: Performed By: #### L 100.0100, L500.4050, L503.6005 ####[facility] [address] [place], [address] IG% 0.400 Normal 0.0-0.9 [facility]; [facility] Work Phone: Comment on above: Result Comment: IG% - Immature Granulocytes (promyelocytes, myelocytes andmetamyelocytes) > 1% indicates that a LEFT SHIFT is Present. Performed By: #### L 100.0100, L500.4050, L503.6005 ####[facility] [address] [place], [address] Lymphocytes/100 WBC (Bld) 14.9 % Low 19-41 [facility]; [facility] Work Phone: Comment on above: Performed By: #### L 100.0100, L500.4050, L503.6005 ####[facility] [address] [place], [place], [phone] MCH (RBC) [Entitic mass] 25.5 pg Low 27.0-32.0 [facility]; [facility] Work Phone: Comment on above: Performed By: #### L 100.0100, L500.4050, L503.6005 ####[facility] [address] [place], [address] MCHC (RBC) [Mass/Vol] 29.6 g/dL Low 32-36 Eas [facility]; [facility] Work Phone: Comment on above: Performed By: #### L 100.0100, L500.4050, L503.6005 ####[facility] [address] [place], [place], [phone] MCV (RBC) [Entitic vol] 86.4 fL Normal 81-99 [facility]; [facility] Work Phone: Comment on above: Performed By: #### L 100.0100, L500.4050, L503.6005 ####[facility] [address] [place], [address] Monocytes/100 WBC (Bld) 18.6 % High 0-10 [facility]; [facility] Work Phone: Comment on above: Performed By: #### L 100.0100, L500.4050, L503.6005 ####[facility] [address] [place], [address] Neutrophils/100 WBC (Bld) 65.1 % Normal 47-70 [facility]; [facility] Work Phone: Comment on above: Performed By: #### L 100.0100, L500.4050, L503.6005 ####[facility] [address] [place], [place], [phone] Nucleated RBC (Bld) [#/Vol] 0 10*3/uL Normal 0-5 [facility]; [facility] Work Phone: Comment on above: Performed By: #### L 100.0100, L500.4050, L503.6005 ####[facility] [address] [place], [place], [phone] Platelet mean volume (Bld) [Entitic vol] 8.5 fL Normal 6.2-12.0 [facility]; [facility] Work Phone: Comment on above: Performed By: #### L 100.0100, L500.4050, L503.6005 ####[facility] [address] [facility]. [place], [place], [phone] Platelets (Bld) [#/Vol] 344 10*3/uL Normal 150-450 [facility]; [facility] Work Phone: Comment on above: Performed By: #### L 100.0100, L500.4050, L503.6005 ####[facility] [address] [facility] [address] [place], [place], [phone] RBC (Bld) [#/Vol] 4.11 10*6/uL Low 4.2-5.4 [facility]; [facility] Work Phone: Comment on above: Performed By: #### L 100.0100, L500.4050, L503.6005 ####[facility] [address] [place], [address] RDW SD 46.4 fL High 35.1-43.9 [facility]; [facility] Work Phone: Comment on above: Performed By: #### L 100.0100, L500.4050, L503.6005 ####[facility] [address] [place], [address] WBC (Bld) [#/Vol] 5.3 10*3/uL Normal 4.4-11.0 [facility]; [facility] Work Phone: Comment on above: Performed By: #### L 100.0100, L500.4050, L503.6005 ####[facility] [address] [place], [address] Chest PA and Lateralon 05-30 Chest PA and Lateral Normal [facility] Comprehensive Metabolic Prof ilon 05-30-2024 Albumin [Mass/Vol] 3.0 g/dL Low 3.2-5.0 [facility].; [facility] Work Phone: Comment on above: Performed By: #### L 100.0100, L500.4050, L503.6005 ####[facility] [address] [place], [address] Albumin/Globulin [Mass ratio] 0.8 {ratio} Low 0.9-2.4 [facility]; [facility] Work Phone: Comment on above: Performed By: #### L 100.0100, L500.4050, L503.6005 ####[facility] [address] [place], [address] ALK P 124 U/L High 45-117 [facility]; [facility] Work Phone: Comment on above: Performed By: #### L 100.0100, L500.4050, L503.6005 ####[facility] [address] [place], [address] ALT [Catalytic activity/Vol] 15 U/L Normal 13-56 [facility]; [facility] Work Phone: Comment on above: Performed By: #### L 100.0100, L500.4050, L503.6005 ####[facility] [address] [place], [place], [phone] AST [Catalytic activity/Vol] 22 U/L Normal 15-37 [facility]; [facility] Work Phone: Comment on above: Performed By: #### L 100.0100, L500.4050, L503.6005 ####[facility] [address] [place], [place], [phone] Bilirubin [Mass/Vol] 0.40 mg/dL Normal 0.20-1.00 [facility]; [facility] Work Phone: Comment on above: Result Comment: For patients on eltrombopag therapy, use of Dimension [place] TBIL is not recommended. Performed By: #### L 100.0100, L500.4050, L503.6005 ####[facility] [address] [place], [address] BUN/CRE 13.4 RATIO Normal 10-20 [facility] Comment on above: Performed By: #### L 100.0100, L500.4050, L503.6005 ####[facility] [address] [place], [address] CA,Total 8.9 mg/dL Normal 8.5-10.1 [facility] Comment on above: Performed By: #### L 100.0100, L500.4050, L503.6005 ####[facility] [address] [place], [address] Chloride [Moles/Vol] 105 mmol/L Normal 98-107 [facility]; [facility] Work Phone: Comment on above: Performed By: #### L 100.0100, L500.4050, L503.6005 ####[facility] [address] [place], [place], [phone] CO2 [Moles/Vol] 27.0 mmol/L Normal 21.0-32.0 [facility] Work Phone: Comment on above: Performed By: #### L 100.0100, L500.4050, L503.6005 ####[facility] [address] [place], [address] Creatinine [Mass/Vol] 1.12 mg/dL High 0.55-1.02 [facility]; [facility] Work Phone: Comment on above: Result Comment: The validity of the calculated GFR GFRAA in patients over70 years has not been determined. Clinical correlation isessential. Performed By: #### L 100.0100, L500.4050, L503.6005 ####[facility] [address] [place], [place], [address] EST GFR - AA 60 mL/min Normal >60 [facility]; [facility] Work Phone: Comment on above: Result Comment: Afri can Icelandic GFR Calc Performed By: #### L 100.0100, L500.4050, L503.6005 ####[facility] [address] [place], [place], [address] GAP 5 Normal 5-15 [facility]; [facility] Work Phone: Comment on above: Performed By: #### L 100.0100, L500.4050, L503.6005 ####[facility] [address] [place], [place], [phone] GFR/1.73 sq M.predicted among non-blacks MDRD (S/P/Bld) [Vol rate/Area] 49 mL/min/{1.73_m2} Low >60 [facility]; [facility] Work Phone: Comment on above: Result Comment: Non- GFR Calc Performed By: #### L 100.0100, L500.4050, L503.6005 ####[facility] [address] [place], [place], [address] Globulin (S) [Mass/Vol] 3.9 g/dL Normal 2.2-4.2 [facility]; [facility] Work Phone: Comment on above: Performed By: #### L 100.0100, L500.4050, L503.6005 ####[facility] [address] [place], [address] Glucose [Mass/Vol] 108 mg/dL High 74-106 [facility]; [facility] Work Phone: Comment on above: Result Comment: Fast ing Glucose result from 100 to 125 mg/dLsuggests IMPAIRED HOMEOSTASIS per A.D.A. criteria. Performed By: #### L 100.0100, L500.4050, L503.6005 ####[facility] [address] [place], [address] Potassium [Moles/Vol] 3.5 mmol/L Normal 3.5-5.1 [facility]; [facility] Work Phone: Comment on above: Performed By: #### L 100.0100, L500.4050, L503.6005 ####[facility] [address] [place], [place], [phone] Sodium [Moles/Vol] 137 mmol/L Normal 136-145 [facility]; [facility] Work Phone: Comment on above: Performed By: #### L 100.0100, L500.4050, L503.6005 ####[facility] [address] [place], [address] T PROT 6.9 g/dL Normal 6.4-8.2 [facility]; [facility] Work Phone: Comment on above: Performed By: #### L 100.0100, L500.4050, L503.6005 ####[facility] [address] [place], [address] Urea nitrogen [Mass/Vol] 15 mg/dL Normal 7-18 [facility]; [facility] Work Phone: Comment on above: Performed By: #### L 100.0100, L500.4050, L503.6005 ####[facility] [address] [place], [address] Emergency Department Summary on 05-30-2024 Emergency Department Summary Normal [facility] Laboratory - Chemistry and C hemistry - challengeon 05-30-2024 Magnesium [Mass/Vol] 30 mg/dL Abnormal [facility] Work Phone: Magnesium [Mass/Vol] 8.9 mg/dL Normal 8.5 - 1 0.1 mg/dL [facility].; [facility] Work Phone: Laboratory - Microbiology an d Antimicrobial susceptibilityon 05-30-2024 Bacteria identified Cx Nom (Unsp spec) 1+ Normal [facility].; [facility] Work Phone: Laboratory - Specimen inform ationon 05-30-2024 Clarity (U) Clear Normal [facility].; [facility] Work Phone: Color (U) Yellow Normal [facility].; [facility] Work Phone: Laboratory - Urinalysison Nitrite Ql (U) Negative [facility] Work Phone: Lactic Acidon 05-30-2024 Lactate [Moles/Vol] 1.6 mmol/L Normal 0.4-1.9 [facility], [facility].; [facility] Work Phone: Comment on above: Order Comment: Y Performed By: #### L 100.0100, L500.4050, L503.6005 ####[facility] [address] [place], [address] No Panel Informationon 05-30 Absolute Lymph 0.79 {X10_3/uL} Abnormal 0.83 - 4.51 {X10_3/uL} [facility] Work Phone: Absolute Neut 3.5 {X10_3/uL} Normal 2.0 - 7.7 {X10_3/uL} [facility], [facility].; [facility] Work Phone: BILIRUBIN URINE Negative Normal [facility].; [facility] Work Phone: BUN/CRE 13.4 {RATIO} Normal 10 - 20 {RATIO} [facility].; [facility] Work Phone: GLUCOSE, UR Normal Normal [facility].; [facility], [facility]. Work Phone: KETONE UR Negative Normal [facility].; [facility] Work Phone: LEUK ESTERASE Negative Normal [facility].; [facility] Work Phone: OCCULT BLOOD-UR Negative Normal [facility].; [facility] Work Phone: pH UR 6.5 Normal 5.0 - 8.0 [facility].; [facility] Work Phone: SP.GR. DIPSTX 1.010 Normal 1.002 - 1.030 [facility].; [facility] Work Phone: UROBILI Normal Normal [facility].; [facility]. Work Phone: Urinalysis, Completeon 05-30 Mucus Ql (Urine sed) RARE Normal [facility].; [facility]. Work Phone: Comment on above: Order Comment: CLEAN CATCH Performed By: #### L 400.0001 ####[facility] [address] [place], [address] BACTERIA 1+ /hpf Normal None Seen [facility] Comment on above: Order Comment: CLEAN CATCH Performed By: #### L 400.0001 ####[facility] [address] [place], [address] EPI,SQUAMOUS 0-5 SEEN Normal 5-10 [facility] [employer].; [facility] [employer]. Work Phone: Comment on above: Order Comment: CLEAN CATCH Performed By: #### L 400.0001 ####[facility] [address] [place], [address] WBC 0-5 SEEN Normal 0-5 [facility] [employer].; [facility] [employer]. Work Phone: Comment on above: Order Comment: CLEAN CATCH Performed By: #### L 400.0001 ####[facility] [address] [place], [address] RBC 0 SEEN Normal 0-5 [facility] [employer].; [facility], [facility]. Work Phone: Comment on above: Order Comment: CLEAN CATCH Performed By: #### L 400.0001 ####[facility] [address] [place], [address] OPERATIVE PROCEDURESon 02-15 OPERATIVE PROCEDURES [facility] OPERATIVE REPORT NAME ACCOUNT SEX AGE ADMIT DISCHARGE PT MED. RECORD# NUMBER DATE DATE TYPE CAMPOS SAPNA Drew [id number] F 84 02/05/24 2 [id number] ROOM: [facility] DATE OF : 1940 DICTATING PHYSICIAN: Marcos White DATE OF PROCEDURE: February 05, 2024 SURGEON: Marcos White DO MACHINE REPAIR PERSON: None. ANESTHETIC: Local. PRE-PROCEDURE DIAGNOSES: (1) Lumbar [...] of 2 SAPNA BULLARD Operative Report SAPNA Russell CAMPOS : 1940 The patient was transferred to ambulatory surgery in satisfactory condition. Dictated By: Marcos White DO 02/05/24 12:03 JOB #: [id number] Transcribed By: tim 02/05/24 12:27 Electronically signed by: E-SIGN: MARCOS WHITE 02/16/24 07:40 Page 2 of 2 SAPNA BULLARD Operative Report Normal [facility] C-ARM USAGE 1 HOURon 024 C-ARM USAGE 1 HOUR [facility] [address] [place], [place] [address] Patient: SAPNA BULLARD Phone#: : 1940 Age: 84 Gender: F Pt. Type: Out Account: [id number] Location: [id number] Ordering: MARCOS WHITE Exam Date: 02/05/2024/11:01 Family Phys: NICCI LEMUS Charge Code: [id number] Physician: [place] Order #: [id number] Dose#: PROCEDURE: C-ARM USEAGE 1 HR COMPARISON: [facility], , C-ARM USEAGE 1 HR, 10/08/2023, 8:09. [...] Alston MD on 02/05/2024 at 16:03 Normal [facility] Automated blood erythrocyte count (number/volume)Ordered By: Vish Cook on 08-17-2023 RBC (Bld) [#/Vol] 4.32 10*6/uL Normal 4.2 - 5.4 {M/mm3} [facility] Automated blood hematocrit ( percentage)Ordered By: Vish Cook on 08-17-2023 Hematocrit (Bld) [Volume fraction] 37.9 % Normal 37 - 47 [facility] Basophil percentageOrdered B y: Vish Cook on 08-17-2023 Bilirubin [Mass/Vol] 0.30 mg/dL Normal 0.20 - 1.00 mg/dL [facility] Comment on above: For patients on eltr ombopag therapy, use of Dimension [place] TBIL is not recommended. Chloride [Moles/Vol] 104 mmol/L Normal 98 - 10 7 mmol/L [facility] Glucose [Mass/Vol] 92 mg/dL Normal 74 - 106 mg/dL [facility] Hemoglobin (Bld) [Mass/Vol] 11.7 g/dL Abnormal 12.0 - 15.0 g/dL [facility] Potassium [Moles/Vol] 3.9 mmol/L Normal 3.5 - 5.1 mmol/L [facility] Protein [Mass/Vol] 7.2 g/dL 6.4-8.2 [facility] Sodium [Moles/Vol] 138 mmol/L Normal 136 - 145 mmol/L [facility] WBC (Bld) [#/Vol] 11.0 10*3/uL Normal 4.4 - 11.0 K/mm3 [facility] Determination of erythrocyte mean corpuscular volume (MCV)Ordered By: Vishsushila Cook on 08-17-2023 MCV (RBC) [Entitic vol] 87.7 fL Normal 81 - 99 fL [facility] Erythrocyte distribution wid th ratioOrdered By: [facility] [place] Hospitaldashawn on 08-17-2023 Erythrocyte distribution width (RBC) [Ratio] 14.7 % Abnormal 11.6 - 14.6 [facility] Erythrocyte distribution wid th standard deviationOrdered By: [facility] [place] Hospitaldashawn on 08-17-2023 Erythrocyte distribution width (RBC) [Entitic vol] 47.1 fL 35.1-43.9 [facility] Laboratory - Chemistry and C hemistry - challengeon 08-17-2023 Albumin [Mass/Vol] 3.0 g/dL Abnormal 3.2 - 5.0 g/dL [facility] Work Phone: AST [Catalytic activity/Vol] 19 U/L Normal 15 - 37 U/L [facility]; [facility] Work Phone: GFR/1.73 sq M.predicted among non-blacks MDRD (S/P/Bld) [Vol rate/Area] 59 mL/min/{1.73_m2} Abnormal [facility].; [facility] Work Phone: Magnesium [Mass/Vol] 9.9 mg/dL Normal 8.5 - 1 0.1 mg/dL [facility].; [facility] Work Phone: Laboratory - Chemistry and C hemistry - challengeOrdered By: Vish Cook on 08-17-2023 Albumin/Globulin [Mass ratio] 0.7 {ratio} Abnormal 0.9 - 2.4 {RATIO} [facility] ALP [Catalytic activity/Vol] 138 U/L 45-117 [facility] ALT [Catalytic activity/Vol] 17 U/L Normal 13 - 56 U/L [facility] CO2 [Moles/Vol] 29.0 mmol/L Normal 21.0 - 32.0 mmol/L [facility] Globulin (S) [Mass/Vol] 4.2 g/dL Normal 2.2 - 4.2 g/dL [facility] Urea nitrogen/Creatinine [Mass ratio] 17.8 mg/mg 10-20 [facility] Laboratory - Hematology and Cell countsOrdered By: Vish Cook on 08-17-2023 MCH (RBC) [Entitic mass] 27.1 pg Normal 27.0 - 32.0 pg [facility] MCHC (RBC) [Mass/Vol] 30.9 g/dL Abnormal 32 - 3 6 g/dL [facility] Platelet mean volume (Bld) [Entitic vol] 8.6 fL Normal 6.2 - 12.0 fL [facility] Platelets (Bld) [#/Vol] 440 10*3/uL Normal 150 - 450 K/mm3 [facility] No Panel Informationon 08-16 ALK P 138 U/L Abnormal 45 - 117 U/L [facility] Work Phone: BUN/CRE 17.8 {RATIO} Normal 10 - 20 {RATIO} [facility].; FOSTER Kaboodle [facility]. Work Phone: EST GFR - AA 72 mL/min Normal [facility]; [facility] Work Phone: GAP 5 Normal 5 - 15 [facility].; [facility] Work Phone: RDW SD 47.1 fL Abnormal 35.1 - 43.[address] [facility].; [facility] Work Phone: T PROT 7.2 g/dL Normal 6.4 - 8.2 g/dL [facility]; [facility] Work Phone: No Panel InformationOrdered By: Vish Cook on 08-17-2023 Estimated GFR (MDRD) Amer 72 mL/min >60 [facility] Comment on above: GFR Calc Estimated GFR (MDRD) Non-Af Amer 59 mL/min >60 [facility] Comment on above: Non- GFR Calc Serum or plasma calcium candice urement (mass/volume)Ordered By: Vish Cook on 08-17-2023 Calcium [Mass/Vol] 9.9 mg/dL 8.5-10.1 [facility] Serum or plasma creatinine m easurement (mass/volume)Ordered By: Vish Cook on 08-17-2023 Creatinine [Mass/Vol] 0.96 mg/dL Normal 0.55 - 1.02 mg/dL [facility] Comment on above: The validity of the calculated GFR & GFRAA in patients over 70 years has not been determined. Clinical correlation is essential. Serum or plasma urea nitroge n measurement (mass/volume)Ordered By: Vish Cook on 08-17-2023 Urea nitrogen [Mass/Vol] 17 mg/dL Normal 7 - 18 mg/dL [facility] Thin prep Papanicolaou smear with manual screeningOrdered By: Vish Cook on 08-17-2023 Thin prep Papanicolaou smear with manual screening 3.0 g/dL 3.2-5.0 [facility] Thin prep Papanicolaou smear with manual screening 19 U/L 15-37 [facility] Thin prep Papanicolaou smear with manual screening 5 5-15 [facility] Basophil percentageOrdered B y: Vish Enriquezdashawn on 08-14-2023 Basophil percentage 0 SEEN /hpf 0-5 [facility] Bilirubin Test strip Ql (U)O rdered By: Vish Enriquezdashawn on 08-14-2023 Bilirubin Ql (U) Negative Negative [facility] Culture, urineOrdered By: efrakaroline Joellemaddison on 08-14-2023 Bacteria identified Cx Nom (U) Culture exhibits no growth. [facility] Ketones Test strip Ql (U)Ord ered By: Vish Enriquezdashawn on 08-14-2023 Ketones Ql (U) Negative Negative [facility] Laboratory - Microbiology an d Antimicrobial susceptibilityon 08-14-2023 Bacteria identified Cx Nom (Unsp spec) 0 SEEN Normal [facility]; [facility] Work Phone: Laboratory - Urinalysison Mucus Ql (Urine sed) 0 SEEN Normal [facility]; [employer] [place] [employer] [facility] Work Phone: Mucus LM Ql (Urine sed)Order ed By: Vish Laimaddison on 08-14-2023 Mucus Ql (Urine sed) 0 SEEN /hpf [facility] Nitrite ur dipstickOrdered B y: Vish Cook on 08-14-2023 Nitrite Ql (U) Negative Normal [facility] No Panel InformationOrdered By: Vish Laimaddison on 08-14-2023 Urine RBC 0 SEEN /hpf 0-5 [facility] No Panel Informationon 08-13 BILIRUBIN URINE Negative Normal [facility]; [facility] Work Phone: EPI,SQUAMOUS 0 SEEN Normal 5 - 10 {/hpf} [facility]; [employer] [facility] [employer] [place] [employer] [facility] Work Phone: GLUCOSE, UR Normal Normal [facility]; [employer] [facility] [employer] [place] [employer] [facility] Work Phone: KETONE UR Negative Normal [facility].; [facility] Work Phone: LEUK ESTERASE Negative Normal [facility]; [facility]. Work Phone: OCCULT BLOOD-UR Negative Normal [facility].; [facility]. Work Phone: pH UR 5.0 Normal 5.0 - 8.0 [facility].; [facility]. Work Phone: PROT DIPSTX Negative Normal [facility]; [facility]. Work Phone: RBC 0 SEEN Normal 0 - 5 {/hpf} [facility].; [facility]. Work Phone: SP.GR. DIPSTX 1.010 Normal 1.002 - 1.030 [facility].; [facility]. Work Phone: URC See Note Normal [facility].; [facility]. Work Phone: UROBILI Normal Normal [facility]; [facility]. Work Phone: WBC 0 SEEN Normal 0 - 5 {/hpf} [facility].; [facility]. Work Phone: Protein Test strip Ql (U)Ord ered By: Vish Cook on 08-14-2023 Protein Ql (U) Negative Negative [facility] Squamous epithelial cells de tection in urine sediment by light microscopyOrdered By: Vish Cook on 08-14-2023 Epithelial cells.squamous LM Ql (Urine sed) 0 SEEN /hpf 5-10 [facility] Urine blood detectionOrdered By: Vish Cook on 08-14-2023 RBC Ql (U) Negative Negative [facility] Urine clarityOrdered By: Vahe Cook on 08-14-2023 Clarity (U) Clear Normal [facility] Urine color determinationOrd ered By: Vish Cook on 08-14-2023 Color (U) Yellow Normal [facility] Urine glucose detectionOrder ed By: Vish Cook on 08-14-2023 Glucose Ql (U) Normal mg/dl Normal [facility] [facility] leukocyte esterase det ection by dipstickOrdered By: Vish Cook on 08-14-2023 Leukocyte esterase Test strip Ql (U) Negative Negative [facility] Urine pHOrdered By: Vish Cook on 08-14-2023 pH (U) 5.0 [pH] 5.0 - 8.0 [facility] Urine sediment bacteria coun t by microscopy (number/high power field)Ordered By: Vish Cook on 08-14-2023 Bacteria LM.HPF (Urine sed) [#/Area] 0 /[HPF] None Seen [facility] Urine specific gravity measu rementOrdered By: Vish Cook on 08-14-2023 Specific gravity (U) [Rel density] 1.010 1.002-1.03 0 [facility] Urine urobilinogen measureme ntOrdered By: Vish Cook on 08-14-2023 Urobilinogen Ql (U) Normal mg/dl Normal [facility] Basophil percentageOrdered B y: Vish Cook on 05-25-2023 Potassium [Moles/Vol] 3.8 mmol/L Normal 3.5 - 5.1 mmol/L [facility] Absolute lymphocyte countOrd ered By: Pravin Cruz on 04-20-2023 Lymphocytes Auto (Unsp spec) [#/Vol] 1.38 10*3/uL 0.83-4.51 [facility] Automated blood hematocrit ( percentage)Ordered By: Pravin Cruz on 04-20-2023 Hematocrit (Bld) [Volume fraction] 31.2 % Abnormal 37 - 47 [facility] Basophil percentageOrdered B y: Pravin Cruz on 04-20-2023 Basophils/100 WBC (Bld) 0.3 % Normal 0 - 1 [facility] Chloride [Moles/Vol] 103 mmol/L Normal 98 - 10 7 mmol/L [facility] Eosinophils/100 WBC (Bld) 1.0 % Normal 0 - 5 [facility] Glucose [Mass/Vol] 92 mg/dL Normal 74 - 106 mg/dL [facility] Neutrophils (Bld) [#/Vol] 5.2 10*3/uL 2.0-7.7 [facility] Neutrophils/100 WBC (Bld) 65.0 % Normal 47 - 70 [facility] Potassium [Moles/Vol] 3.2 mmol/L Abnormal 3.5 - 5.1 mmol/L [facility] Sodium [Moles/Vol] 135 mmol/L Abnormal 136 - 145 mmol/L [facility] WBC (Bld) [#/Vol] 8.0 10*3/uL Normal 4.4 - 11.0 K/mm3 [facility] Blood erythrocytes count (nu mber/volume)Ordered By: Pravin Cruz on 04-20-2023 RBC (Bld) [#/Vol] 3.61 10*6/uL Abnormal 4.2 - 5.4 {M/mm3} [facility] Blood hemoglobin measurement (mass/volume)Ordered By: Pravin Cruz on 04-20-2023 Hemoglobin (Bld) [Mass/Vol] 10.0 g/dL Abnormal 12.0 - 15.0 g/dL [facility] Blood lymphocytes/100 leukoc ytesOrdered By: Pravin Cruz on 04-20-2023 Lymphocytes/100 WBC (Bld) 17.3 % Abnormal 19 - 41 [facility] Blood monocytes/100 leukocyt esOrdered By: Pravin Cruz on 04-20-2023 Monocytes/100 WBC (Bld) 16.0 % Abnormal 0 - 10 [facility] Blood platelet mean volumeOr dered By: Pravin Cruz on 04-20-2023 Platelet mean volume (Bld) [Entitic vol] 9.1 fL Normal 6.2 - 12.0 fL [facility] Determination of erythrocyte mean corpuscular volume (MCV)Ordered By: Pravin Cruz on 04-20-2023 MCV (RBC) [Entitic vol] 86.4 fL Normal 81 - 99 fL [facility] Laboratory - Chemistry and C hemistry - challengeon 04-20-2023 GFR/1.73 sq M.predicted among non-blacks MDRD (S/P/Bld) [Vol rate/Area] 71 mL/min/{1.73_m2} Normal [facility]; [facility] Work Phone: Magnesium [Mass/Vol] 8.2 mg/dL Abnormal 8.5 - 1 0.1 mg/dL [facility]; [facility] Work Phone: Laboratory - Chemistry and C hemistry - challengeOrdered By: Pravin Cruz on 04-20-2023 CO2 [Moles/Vol] 25.0 mmol/L Normal 21.0 - 32.0 mmol/L [facility] Urea nitrogen/Creatinine [Mass ratio] 19.6 mg/mg 10-20 [facility] Laboratory - Hematology and Cell countson 04-20-2023 Nucleated RBC (Bld) [#/Vol] 0 10*3/uL Normal 0 - 5 [facility]; [facility] Work Phone: Laboratory - Hematology and Cell countsOrdered By: Pravin Cruz on 04-20-2023 Erythrocyte distribution width (RBC) [Entitic vol] 42.5 fL 35.1-43.9 [facility] Erythrocyte distribution width (RBC) [Ratio] 13.4 % Normal 11.6 - 14.6 [facility] Immature granulocytes/100 WBC (Bld) 0.400 % 0.0-0.9 [facility] Comment on above: IG% - Immature Granu locytes (promyelocytes, myelocytes and metamyelocytes) > 1% indicates that a LEFT SHIFT is Present. MCH (RBC) [Entitic mass] 27.7 pg Normal 27.0 - 32.0 pg [facility] Nucleated RBC/100 WBC (Bld) [Ratio] 0 % 0-5 [facility] MCHC [Mass/volume] by Automa jose maria countOrdered By: Pravin Cruz on 04-20-2023 MCHC (RBC) [Mass/Vol] 32.1 g/dL Normal 32 - 3 6 g/dL [facility] No Panel Informationon 04-20 Absolute Lymph 1.38 {X10_3/uL} Normal 0.83 - 4.51 {X10_3/uL} [facility] Work Phone: Absolute Neut 5.2 {X10_3/uL} Normal 2.0 - 7.7 {X10_3/uL} [facility].; [facility] Work Phone: BUN/CRE 19.6 {RATIO} Normal 10 - 20 {RATIO} [facility].; [facility] Work Phone: ECRCL 41.00 ml/min Normal [facility].; [facility] Work Phone: EST GFR - AA 86 mL/min Normal [facility].; [facility] [place] [facility] Work Phone: GAP 7 Normal 5 - 15 [facility].; [employer] [facility] Work Phone: IG% 0.400 Normal 0.0 - 0.9 [facility] HospitalMarq[facility]; [facility]ITALWutsat SystemsEK [employer] [facility] Le[facility] Work Phone: RDW SD 42.5 fL Normal 35.1 - 43.9 fL [facility].; [facility] [facility] Work Phone: No Panel InformationOrdered By: Pravin Cruz on 04-20-2023 Estimated Creatinine Clearance Calc 41.00 ml/min [facility] Estimated GFR (MDRD) Amer 86 mL/min >60 [facility] Comment on above: GFR Calc Estimated GFR (MDRD) Non-Af Amer 71 mL/min >60 [facility] Comment on above: Non- GFR Calc Platelets bldOrdered By: Sal[place] Cruz on 04-20-2023 Platelets (Bld) [#/Vol] 291 10*3/uL Normal 150 - 450 K/mm3 [facility] Serum or plasma calcium candice urement (mass/volume)Ordered By: Pravin Cruz on 04-20-2023 Calcium [Mass/Vol] 8.2 mg/dL 8.5-10.1 [facility] Serum or plasma creatinine m easurement (mass/volume)Ordered By: Pravin Cruz on 04-20-2023 Creatinine [Mass/Vol] 0.82 mg/dL Normal 0.55 - 1.02 mg/dL [facility] Comment on above: The validity of the calculated GFR & GFRAA in patients over 70 years has not been determined. Clinical correlation is essential. Serum or plasma urea nitroge n measurement (mass/volume)Ordered By: Pravin Cruz on 04-20-2023 Urea nitrogen [Mass/Vol] 16 mg/dL Normal 7 - 18 mg/dL [facility] Thin prep Papanicolaou smear with manual screeningOrdered By: Pravin Cruz on 04-20-2023 Thin prep Papanicolaou smear with manual screening 7 5-15 [facility] Basophil percentageOrdered B y: Karon White on 04-17-2023 Bilirubin [Mass/Vol] 0.40 mg/dL Normal 0.20 - 1.00 mg/dL [facility] Comment on above: For patients on eltr ombopag therapy, use of Dimension [place] TBIL is not recommended. Protein [Mass/Vol] 5.8 g/dL 6.4-8.2 [facility] Culture, urineOrdered By: Do art Cohen on 04-17-2023 Bacteria identified Cx Nom (U) Presumptive E. coli [facility] Laboratory - Chemistry and C hemistry - challengeon 04-17-2023 AST [Catalytic activity/Vol] 16 U/L Normal 15 - 37 U/L [facility]; [facility] Work Phone: Chloride [Moles/Vol] 108 mmol/L Abnormal 98 - 10 7 mmol/L [facility]; [facility] Work Phone: CO2 [Moles/Vol] 25.0 mmol/L Normal 21.0 - 32.0 mmol/L [facility]; [facility] Work Phone: Creatinine [Mass/Vol] 0.88 mg/dL Normal 0.55 - 1.02 mg/dL [facility]; [facility] Work Phone: GFR/1.73 sq M.predicted among non-blacks MDRD (S/P/Bld) [Vol rate/Area] 66 mL/min/{1.73_m2} Normal [facility]; [facility] Work Phone: Glucose [Mass/Vol] 86 mg/dL Normal 74 - 106 mg/dL [facility]; [facility] Work Phone: Magnesium [Mass/Vol] 7.9 mg/dL Abnormal 8.5 - 1 0.1 mg/dL [facility]; [facility] Work Phone: Potassium [Moles/Vol] 3.8 mmol/L Normal 3.5 - 5.1 mmol/L [facility]; [facility] Work Phone: Sodium [Moles/Vol] 138 mmol/L Normal 136 - 145 mmol/L [facility]; [facility] Work Phone: Urea nitrogen [Mass/Vol] 10 mg/dL Normal 7 - 18 mg/dL [facility]; [facility] Work Phone: Laboratory - Chemistry and C hemistry - challengeOrdered By: Karon Nunes on 04-17-2023 ALP [Catalytic activity/Vol] 101 U/L 45-117 [facility] ALT [Catalytic activity/Vol] 12 U/L Abnormal 13 - 56 U/L [facility] Globulin (S) [Mass/Vol] 3.3 g/dL Normal 2.2 - 4.2 g/dL [facility] Laboratory - Hematology and Cell countson 04-17-2023 Basophils/100 WBC (Bld) 0.6 % Normal 0 - 1 [facility]; [facility] Work Phone: Eosinophils/100 WBC (Bld) 0.6 % Normal 0 - 5 [facility]; [facility] Work Phone: Erythrocyte distribution width (RBC) [Ratio] 13.3 % Normal 11.6 - 14.6 [facility]; [facility] Work Phone: Hematocrit (Bld) [Volume fraction] 32.4 % Abnormal 37 - 47 [facility]; [facility] Work Phone: Hemoglobin (Bld) [Mass/Vol] 9.9 g/dL Abnormal 12.0 - 15.0 g/dL [facility]; [facility] Work Phone: Lymphocytes/100 WBC (Bld) 13.6 % Abnormal 19 - 41 [facility]; [facility] Work Phone: MCH (RBC) [Entitic mass] 27.3 pg Normal 27.0 - 32.0 pg [facility]; [facility] Work Phone: MCHC (RBC) [Mass/Vol] 30.6 g/dL Abnormal 32 - 3 6 g/dL [facility]; [facility] Work Phone: MCV (RBC) [Entitic vol] 89.5 fL Normal 81 - 99 fL [facility]; [facility] Work Phone: Monocytes/100 WBC (Bld) 11.3 % Abnormal 0 - 10 [facility]; [facility] Work Phone: Neutrophils/100 WBC (Bld) 73.6 % Abnormal 47 - 70 [facility]; [facility]. Work Phone: Nucleated RBC (Bld) [#/Vol] 0 10*3/uL Normal 0 - 5 [facility]; [facility]. Work Phone: Platelet mean volume (Bld) [Entitic vol] 9.0 fL Normal 6.2 - 12.0 fL [facility]; [facility]. Work Phone: Platelets (Bld) [#/Vol] 302 10*3/uL Normal 150 - 450 K/mm3 [facility]; [facility]. Work Phone: RBC (Bld) [#/Vol] 3.62 10*6/uL Abnormal 4.2 - 5.4 {M/mm3} [facility]; [facility] Work Phone: WBC (Bld) [#/Vol] 6.9 10*3/uL Normal 4.4 - 11.0 K/mm3 [facility].; [facility] Work Phone: No Panel Informationon 04-17 Absolute Lymph 0.94 {X10_3/uL} Normal 0.83 - 4.51 {X10_3/uL} [facility].; [facility]. Work Phone: Absolute Neut 5.1 {X10_3/uL} Normal 2.0 - 7.7 {X10_3/uL} [facility].; [facility]. Work Phone: ALK P 101 U/L Normal 45 - 117 U/L [facility].; [facility]. Work Phone: BUN/CRE 11.4 {RATIO} Normal 10 - 20 {RATIO} [facility].; [facility]. Work Phone: ECRCL 37.44 ml/min Normal [facility]; [facility]. Work Phone: EST GFR - AA 79 mL/min Normal [facility].; [facility]. Work Phone: GAP 5 Normal 5 - 15 [facility]; [facility]. Work Phone: IG% 0.300 Normal 0.0 - 0.9 [facility]; [facility] Work Phone: RDW SD 43.8 fL Normal 35.1 - 43.9 fL [facility].; [facility] [employer] Work Phone: T PROT 5.8 g/dL Abnormal 6.4 - 8.2 g/dL [facility].; [facility] Work Phone: No Panel InformationOrdered By: Karon Nunes on 04-17-2023 Streptococcus pneumoniae Antigen (M [facility] Respiratory pathogens detect ion panel by molecular detection methodOrdered By: Karon Nunes on 04-17-2023 Respiratory pathogens DNA and RNA panel ZAID+probe (Resp) [facility] Serum or plasma albumin candice urement (mass/volume)Ordered By: Karon Manju on 04-17-2023 Albumin [Mass/Vol] 2.5 g/dL Abnormal 3.2 - 5.0 g/dL [facility] Serum or plasma albumin/glob ulin mass ratioOrdered By: Karon Manju on 04-17-2023 Albumin/Globulin [Mass ratio] 0.8 {ratio} Abnormal 0.9 - 2.4 {RATIO} [facility] Thin prep Papanicolaou smear with manual screeningOrdered By: Karon Nunes on 04-17-2023 Thin prep Papanicolaou smear with manual screening 16 U/L 15-37 [facility] Urine Legionella pneumophila antigen detectionOrdered By: Karon Nunes on 04-17-2023 L. pneumophila Ag Ql (U) [facility] Basophil percentageOrdered B y: Nicholas Cohen on 04-16-2023 Basophil percentage 10-25 SEEN /hpf 0-5 [facility] Bilirubin Test strip Ql (U)O rdered By: Nicholas Cohen on 04-16-2023 Bilirubin Ql (U) Negative Negative [facility] Ketones Test strip Ql (U)Ord ered By: Nicholas Cohen on 04-16-2023 Ketones Ql (U) Negative Negative [facility] Laboratory - Chemistry and C hemistry - challengeOrdered By: Karon Nunes on 04-16-2023 Magnesium [Mass/Vol] 2.0 mg/dL Normal 1.6 - 2 .6 mg/dL [facility] Laboratory - Chemistry and C hemistry - challengeon 04-16-2023 Albumin [Mass/Vol] 3.1 g/dL Abnormal 3.2 - 5.0 g/dL [facility]; [facility] Work Phone: Albumin/Globulin [Mass ratio] 0.8 {ratio} Abnormal 0.9 - 2.4 {RATIO} [facility]; [facility] Work Phone: ALT [Catalytic activity/Vol] 17 U/L Normal 13 - 56 U/L [facility]; [facility] Work Phone: AST [Catalytic activity/Vol] 18 U/L Normal 15 - 37 U/L [facility]; [facility] Work Phone: Bilirubin [Mass/Vol] 0.50 mg/dL Normal 0.20 - 1.00 mg/dL [facility]; [facility] Work Phone: Chloride [Moles/Vol] 101 mmol/L Normal 98 - 10 7 mmol/L [facility]; [facility] Work Phone: CO2 [Moles/Vol] 29.0 mmol/L Normal 21.0 - 32.0 mmol/L [facility]; [facility] Work Phone: Creatinine [Mass/Vol] 0.95 mg/dL Normal 0.55 - 1.02 mg/dL [facility]; [facility] Work Phone: GFR/1.73 sq M.predicted among non-blacks MDRD (S/P/Bld) [Vol rate/Area] 60 mL/min/{1.73_m2} Normal [facility]; [facility] Work Phone: Globulin (S) [Mass/Vol] 3.9 g/dL Normal 2.2 - 4.2 g/dL [facility]; [facility] Work Phone: Glucose [Mass/Vol] 100 mg/dL Normal 74 - 106 mg/dL [facility]; [facility] Work Phone: Magnesium [Mass/Vol] 15 mg/dL Abnormal [facility]; [facility] Work Phone: Magnesium [Mass/Vol] 8.7 mg/dL Normal 8.5 - 1 0.1 mg/dL [facility]; [facility] Work Phone: Potassium [Moles/Vol] 3.3 mmol/L Abnormal 3.5 - 5.1 mmol/L [facility]; [facility] Work Phone: Sodium [Moles/Vol] 135 mmol/L Abnormal 136 - 145 mmol/L [facility]; [facility] Work Phone: Urea nitrogen [Mass/Vol] 14 mg/dL Normal 7 - 18 mg/dL [facility]; [facility] Work Phone: Laboratory - Microbiology an d Antimicrobial susceptibilityon 04-16-2023 Bacteria identified Cx Nom (Unsp spec) 1+ Normal [facility]; [facility] Work Phone: L. pneumophila Ag Ql (U) See Note Normal [facility]; [facility] Work Phone: Respiratory pathogens DNA and RNA 12b panel ZAID+probe (Unsp spec) See Note Normal [facility]3]; [facility] Work Phone: S. pneumoniae Ag LA Ql (Unsp spec) See Note Normal [facility]; [facility] Work Phone: Laboratory - Urinalysison Mucus Ql (Urine sed) 0 SEEN Normal [facility]; [facility] Work Phone: Mucus LM Ql (Urine sed)Order ed By: Nicholasboubacar Cohen on 04-16-2023 Mucus Ql (Urine sed) 0 SEEN /hpf [facility] Nitrite ur dipstickOrdered B y: Nicholas Cohen on 04-16-2023 Nitrite Ql (U) Negative Normal [facility] No Panel InformationOrdered By: Nicholas Cohen on 04-16-2023 Troponin I High Sensitivity 14 pg/mL 3.0-54.0 [facility] Comment on above: Please Note: New [place] t Units and Gender Specific Reference Ranges. For more information see Policy Stat Procedure [place] High Sensitivity Troponin (TNIH) and attachments. No Panel Informationon 04-16 ALK P 117 U/L Normal 45 - 117 U/L [facility]; [facility] Work Phone: BILIRUBIN URINE Negative Normal [facility]; [facility] Work Phone: BUN/CRE 14.7 {RATIO} Normal 10 - 20 {RATIO} [facility]; [facility] Work Phone: ECRCL 34.69 ml/min Normal [facility]; [facility] Work Phone: EPI,SQUAMOUS 0 SEEN Normal 5 - 10 {/hpf} [facility]; [facility] Work Phone: EST GFR - AA 72 mL/min Normal [facility].; [facility]. Work Phone: GAP 5 Normal 5 - 15 [facility]; [facility]. Work Phone: GLUCOSE, UR Normal Normal [facility]; [facility]. Work Phone: KETONE UR Negative Normal [facility].; [facility]. Work Phone: LEUK ESTERASE 500 /ul Abnormal [facility]; [facility]. Work Phone: [phone] [facility].; [facility], [facility]. Work Phone: OCCULT BLOOD-UR 25 /ul Abnormal [facility].; [facility], [facility]. Work Phone: pH UR 7.0 Normal 5.0 - 8.0 [facility]; [facility], [facility]. Work Phone: RBC 0-5 SEEN Normal 0 - 5 {/hpf} [facility]; [facility], [facility] Work Phone: SP.GR. DIPSTX 1.010 Normal 1.002 - 1.030 [facility]; [facility] Work Phone: T PROT 7.0 g/dL Normal 6.4 - 8.2 g/dL [facility]; [facility], [facility] Work Phone: TROPONIN-I HS 14 pg/mL Normal 3.0 - 54.0 pg/mL [facility].; [facility]. Work Phone: URC See Note Normal [facility]; [facility] Work Phone: UROBILI Normal Normal [facility]; [facility] Work Phone: WBC 10-25 SEEN Normal 0 - 5 {/hpf} [facility].; [facility] Work Phone: Protein Test strip Ql (U)Ord ered By: Nicholas Cohen on 04-16-2023 Protein Ql (U) 15 mg/dl Negative [facility] Squamous epithelial cells de tection in urine sediment by light microscopyOrdered By: Nicholas Cohen on 04-16-2023 Epithelial cells.squamous LM Ql (Urine sed) 0 SEEN /hpf 5-10 [facility] Urine blood detectionOrdered By: Nicholas Cohen on 04-16-2023 RBC Ql (U) 25 /ul Negative [facility] RBC Ql (U) 0-5 SEEN /hpf 0-5 [facility] Urine clarityOrdered By: Geremias Cohen on 04-16-2023 Clarity (U) Sl. Cloudy Normal [facility] Urine color determinationOrd ered By: Nicholas Cohen on 04-16-2023 Color (U) Yellow Normal [facility] Urine glucose detectionOrder ed By: Nicholas Cohen on 04-16-2023 Glucose Ql (U) Normal mg/dl Normal [facility] Urine leukocyte esterase det ection by dipstickOrdered By: Nicholas Cohen on 04-16-2023 Leukocyte esterase Test strip Ql (U) 500 /ul Negative [facility] Urine pHOrdered By: Nicholas bishop on 04-16-2023 pH (U) 7.0 [pH] 5.0 - 8.0 [facility] Urine sediment bacteria coun t by microscopy (number/high power field)Ordered By: Nicholas Cohen on 04-16-2023 Bacteria LM.HPF (Urine sed) [#/Area] 1 /[HPF] None Seen [facility] Urine specific gravity measu rementOrdered By: Nicholas Coehn on 04-16-2023 Specific gravity (U) [Rel density] 1.010 1.002-1.03 0 [facility] Urobilinogen Auto test strip Ql (U)Ordered By: Nicholas Cohen on 04-16-2023 Urobilinogen Ql (U) Normal mg/dl Normal [facility] Culture, urineOrdered By: Julia Grigsby on 04-06-2023 Bacteria identified Cx Nom (U) GPC Poss Enterococcus sp [facility] Basophil percentageOrdered B y: Elliott Grigsby on 04-05-2023 Basophil percentage 0-5 SEEN /hpf 0-5 [facility] Comment on above: Previous reported re sult: 0 SEEN /hpfEdited by: KAMAR on 04/05/23:1616 AMENDED REPORT 04/05/23 1616 WBC previously reported as: 0 SEEN /hpf Bilirubin Test strip Ql (U)O rdered By: Elliott Grigsby on 04-05-2023 Bilirubin Ql (U) 1 mg/dL Negative [facility] Comment on above: COLOR OF URINE MAY A FFECT DIPSTICK RESULTS. Calcium oxalate crystals det ection in urine sediment by light microscopyOrdered By: Elliott Grigsby on 04-05-2023 Calcium oxalate crystals LM Ql (Urine sed) 2+ /hpf [facility] Hyaline casts LM.LPF (Urine sed) [#/Area]Ordered By: Elliott Grigsby on 04-05-2023 Hyaline casts (Urine sed) [#/Area] 0 /[LPF] 0-5 [facility] Ketones Test strip Ql (U)Ord ered By: Elliott Grigsby on 04-05-2023 Ketones Ql (U) Negative Negative [facility] Laboratory - Chemistry and C hemistry - challengeon 04-05-2023 Bilirubin Ql (U) Small (1+) [facility] Glucose Ql (U) Negative [facility] Ketones Ql (U) Small (15+) [facility] pH (U) 5.0 [pH] [facility] Specific gravity (U) [Rel density] 1.015 [facility] Urobilinogen (U) [Mass/Vol] 1 mg/dL [facility] - Hematology and Cell countson 04-05-2023 Hemoglobin Ql (U) Negative [facility] - Specimen inform ationon 04-05-2023 Clarity (U) Clear [facility] Color (U) Opal [facility] - Urinalysison Nitrite Ql (U) Positive [facility] Protein Ql (U) 3+ [facility] Magnesium ammonium phosphate crystal detectionOrdered By: Elliott Grigsby on 04-05-2023 Triple phosphate crystals LM Ql (Urine sed) 0 SEEN /hpf [facility] Mucus LM Ql (Urine sed)Order ed By: Elliott Grigsby on 04-05-2023 Mucus Ql (Urine sed) 0 SEEN /hpf [facility] Nitrite Test strip Ql (U)Ord ered By: Elliott Grigsby on 04-05-2023 Nitrite Ql (U) Negative Negative [facility] No Panel InformationOrdered By: Elliott Grigsby on 04-05-2023 Urine Transitional Epithelial Cells 0 SEEN /hpf 0-5 [facility] No Panel Informationon 04-05 Urine Leukocytes Negatve [facility] Urine Non-Hemolyzed Blood [facility] Protein Test strip Ql (U)Ord ered By: Elliott Grigsby on 04-05-2023 Protein Ql (U) 30 mg/dl Negative [facility] Squamous epithelial cells de tection in urine sediment by light microscopyOrdered By: Elliott Grigsby on 04-05-2023 Epithelial cells.squamous LM Ql (Urine sed) 0-5 SEEN /hpf 5-10 [facility] Comment on above: Previous reported re sult: 0 SEEN /hpfEdited by: KAMAR on 04/05/23:1616 AMENDED REPORT 04/05/23 1616 SQUAM EPI previously reported as: 0 SEEN /hpf Urine blood detectionOrdered By: Elliott Grigsby on 04-05-2023 RBC Ql (U) 10 /ul Negative [facility] RBC Ql (U) 0 SEEN /hpf 0-5 [facility] Urine clarityOrdered By: Skyler Grigsby on 04-05-2023 Clarity (U) Clear Clear [facility] Urine coarse granular cast d etectionOrdered By: Elliott Grigsby on 04-05-2023 Coarse Granular Casts LM Ql (Urine sed) 0 SEEN /lpf 0-5 /lpf [facility] Urine color determinationOrd ered By: Elliott Grigsby on 04-05-2023 Color (U) Yellow Yellow [facility] Urine glucose detectionOrder ed By: Elliott Grigsby on 04-05-2023 Glucose Ql (U) Normal mg/dl Normal [facility] Urine leukocyte esterase det ection by dipstickOrdered By: Elliott Grigsby on 04-05-2023 Leukocyte esterase Test strip Ql (U) 25 /ul Negative [facility] Urine pHOrdered By: Elliott dickerson on 04-05-2023 pH (U) 6.0 [pH] 5.0 - 8.0 [facility] Urine sediment bacteria coun t by microscopy (number/high power field)Ordered By: Elliott Grigsby on 04-05-2023 Bacteria LM.HPF (Urine sed) [#/Area] 0 /[HPF] None Seen [facility] Urine sediment erythrocyte c ast detection by light microscopyOrdered By: Elliott Grigsby on 04-05-2023 RBC casts LM Ql (Urine sed) 0 SEEN /lpf None Seen [facility] Urine sediment fine granular cast count by microscopy (number/low power field)Ordered By: Elliott Grigsby on 04-05-2023 Fine Granular Casts LM.LPF (Urine sed) [#/Area] 0 SEEN /lpf 0-5 [facility] Urine sediment leukocyte bianca t count by microscopy (number/low power field)Ordered By: Elliott Grigsby on 04-05-2023 WBC casts LM.LPF (Urine sed) [#/Area] 0 SEEN /lpf None Seen [facility] Urine sediment renal epithel ial cell count by microscopy (number/high power field)Ordered By: Elliott Grigsby on 04-05-2023 Epithelial cells.renal LM.HPF (Urine sed) [#/Area] 0 /[HPF] 0-5 [facility] Urine sediment unidentified crystal count by microscopy (number/high powered field)Ordered By: Elliott Grigsby on 04-05-2023 Unidentified crystals LM.HPF (Urine sed) [#/Area] 0 SEEN /hpf None Seen [facility] Urine sediment uric acid cry stal count by microscopy (number/high power field)Ordered By: Elliott Grigsby on 04-05-2023 Urate crystals LM.HPF (Urine sed) [#/Area] 0 /[HPF] [facility] Urine specific gravity measu rementOrdered By: Elliott Grigsby on 04-05-2023 Specific gravity (U) [Rel density] 1.025 1.002-1.03 0 [facility] Urobilinogen Auto test strip Ql (U)Ordered By: Elliott Grigsby on 04-05-2023 Urobilinogen Ql (U) 1 mg/dl Normal [facility] Waxy casts detection in urin e sediment by light microscopyOrdered By: Elliott Grigsby on 04-05-2023 Waxy casts LM Ql (Urine sed) 0 SEEN /lpf None Seen [facility] .Auto Diffon 11-14-2022 Basophil, Absolute 0.1 10 3/mcL Normal 0.0-0.3 [facility] ([place]) Comment on above: Performed By: #### A DIFF, ANEU, CBC #### [address] [address] Basophils/100 WBC (Bld) 1.0 % Normal 0.0 - 2.5 % [facility] ([place]) Comment on above: Performed By: #### A DIFF, ANEU, CBC #### [address] [address] Eosinophil, Absolute 0.1 10 3/mcL Normal 0.0-0.7 [facility] ([place]) Comment on above: Performed By: #### A DIFF, ANEU, CBC #### [address] [address] Eosinophils/100 WBC (Bld) 2.0 % Normal 0.0 - 6.0 % [facility] ([place]) Comment on above: Performed By: #### A DIFF, ANEU, CBC #### [address] [address] Lymphocyte, Absolute 1.9 10 3/mcL Normal 0.9-4.3 [facility] ([place]) Comment on above: Performed By: #### A DIFF, ANEU, CBC #### [address] [address] Lymphocytes/100 WBC (Bld) 25.6 % Normal 20.0 - 40.0 % [facility] ([place]) Comment on above: Performed By: #### A DIFF, ANEU, CBC #### [place] [id number] Monocyte, Absolute 0.6 10 3/mcL Normal 0.1-1.4 [facility] ([place]) Comment on above: Performed By: #### A DIFF, ANEU, CBC #### [address] [address] Monocytes/100 WBC (Bld) 8.5 % Normal 2.0 - 13.0 % [facility] ([place]) Comment on above: Performed By: #### A DIFF, ANEU, CBC #### [address] [address] Neutrophils/100 WBC (Bld) 62.9 % Normal 50.0 - 75.0 % [facility] ([place]) Comment on above: Performed By: #### A DIFF, ANEU, CBC #### [place] [id number] .NEUABSon 11-14-2022 Neutrophil, Absolute 4.7 10 3/mcL Normal 2.3-8.1 [facility] ([place]) Comment on above: Performed By: #### A DIFF, ANEU, CBC #### [place] [id number] CBCon 11-14-2022 Erythrocyte distribution width (RBC) [Ratio] 16.2 % Abnormal 11.5 - 15.5 % [facility] ([place]) Comment on above: Performed By: #### A DIFF, ANEU, CBC #### [place] [phone] Hematocrit (Bld) [Volume fraction] 34.8 % Normal 34.0 - 46.0 % [facility] ([place]) Comment on above: Performed By: #### A DIFF, ANEU, CBC #### [place] [phone] Hgb 11.3 G/dL Low 12.0-16.0 [facility] ([place]) Comment on above: Performed By: #### A DIFF, ANEU, CBC #### [place] [address] MCH (RBC) [Entitic mass] 28.8 pg Normal 27.0 - 33.0 pg [facility] ([place]) Comment on above: Performed By: #### A DIFF, ANEU, CBC #### [place] [address] MCHC 32.5 G/dL Normal 32.0-36.0 [facility] ([place]) Comment on above: Performed By: #### A DIFF, ANEU, CBC #### [place] [phone] MCV (RBC) [Entitic vol] 88.6 fL Normal 80.0 - 99.0 fL [facility] ([place]) Comment on above: Performed By: #### A DIFF, ANEU, CBC #### [place] [phone] Platelet 362 10 3/mcL Normal 150-450 [facility] ([place]) Comment on above: Performed By: #### A DIFF ANEU, CBC #### [place] [address] Platelet mean volume (Bld) [Entitic vol] 7.1 fL Normal 6.6 - 10.5 fL [facility] ([place]) Comment on above: Performed By: #### A DIFF, ANEU, CBC #### [place] [id number] RBC 3.92 10 6/mcL Low 4.10-5.30 [facility] ([place]) Comment on above: Performed By: #### A DIFF, ANEU, CBC #### [place] [id number] WBC 7.5 10 3/mcL Normal 4.5-10.8 [facility] ([place]) Comment on above: Performed By: #### A DIFF, ANEU, CBC #### [place] [address] Laboratory - Hematology and Cell countson 11-13-2022 Basophils (Bld) [#/Vol] 0.1 {10^3/mcL} Normal 0.0 - 0.3 {10^3/mcL} [facility]. Work Phone: Eosinophils (Bld) [#/Vol] 0.1 {10^3/mcL} Normal 0.0 - 0.7 {10^3/mcL} [facility]. Work Phone: Hemoglobin (Bld) [Mass/Vol] 11.3 g/dL Abnormal 12.0 - 16.0 g/dL [facility].; [facility]. Work Phone: Lymphocytes (Bld) [#/Vol] 1.9 {10^3/mcL} Normal 0.9 - 4.3 {10^3/mcL} [facility].; [facility]. Work Phone: MCHC (RBC) [Mass/Vol] 32.5 g/dL Normal 32.0 - 36.0 g/dL [facility]; [facility]. Work Phone: Monocytes (Bld) [#/Vol] 0.6 {10^3/mcL} Normal 0.1 - 1.4 {10^3/mcL} [facility].; [facility]. Work Phone: Neutrophils (Bld) [#/Vol] 4.7 {10^3/mcL} Normal 2.3 - 8.1 {10^3/mcL} [facility].; [facility]. Work Phone: Platelets (Bld) [#/Vol] 362 {10^3/mcL} Normal 150 - 450 {10^3/mcL} [facility]; [facility]. Work Phone: RBC (Bld) [#/Vol] 3.92 {10^6/mcL} Abnormal 4.10 - 5.30 {10^6/mcL} [facility] Work Phone: WBC (Bld) [#/Vol] 7.5 {10^3/mcL} Normal 4.5 - 10 .8 {10^3/mcL} [facility].; [facility], [employer]. Work Phone: No Panel Informationon 11-13 Basophil, Absolute 0.1 {10^3/mcL} Normal 0.0 - 0 .3 {10^3/mcL} [facility].; [facility] Work Phone: Eosinophil, Absolute 0.1 {10^3/mcL} Normal 0.0 - 0.7 {10^3/mcL} [facility].; [facility]. Work Phone: Lymphocyte, Absolute 1.9 {10^3/mcL} Normal 0.9 - 4.3 {10^3/mcL} [facility] Work Phone: Monocyte, Absolute 0.6 {10^3/mcL} Normal 0.1 - 1 .4 {10^3/mcL} [facility] Work Phone: Neutrophil, Absolute 4.7 {10^3/mcL} Normal 2.3 - 8.1 {10^3/mcL} [facility], [employer]. Work Phone: Laboratory - Chemistry and C hemistry - challengeon 06-30-2022 Albumin [Mass/Vol] 1.0 g/dL Normal 0.9 - 1.6 [facility], [employer] Albumin [Mass/Vol] 3.4 g/dL Normal 3.4 - 5.0 g/dL [facility]; [facility] ALT [Catalytic activity/Vol] 23 U/L Normal 14 - 59 U/L [facility]; [facility] ALT No additional P-5'-P [Catalytic activity/Vol] 23 U/L Normal 14 - 59 U/L [facility]; [facility] Anion gap [Moles/Vol] 10 mmol/L Normal 10 - 2 0 mmol/L [facility]; [facility] AST [Catalytic activity/Vol] 31 U/L Normal 13 - 39 U/L [facility]; [facility] Bilirubin [Mass/Vol] 0.3 mg/dL Normal 0.2 - 1 .0 mg/dL [facility]; [facility] Calcium [Mass/Vol] 9.0 mg/dL Normal 8.5 - 10. 1 mg/dL [facility]; [facility] Chloride [Moles/Vol] 102 mmol/L Normal 98 - 10 7 mmol/L [facility]; [facility] Cholesterol [Mass/Vol] 193 mg/dL Normal 0 - 240 mg/dL [facility]; [facility] Cholesterol in HDL [Mass or moles/Vol] 50 mg/dL Normal 40 - 60 mg/dL [facility]; [facility] Cholesterol in LDL [Mass/Vol] 128 mg/dL Normal 0 - 129 mg/dL [facility]; [facility] Cholesterol.total/Cho lesterol in HDL [Mass ratio] 3.9 {ratio} Normal 0.0 - 5.0 [facility]; [facility] CO2 [Moles/Vol] 32.3 mmol/L Abnormal 21.0 - 32.0 mmol/L [facility]; [facility] Creatinine [Mass/Vol] 0.84 mg/dL Normal 0.55 - 1.02 mg/dL [facility]; [facility] GFR/1.73 sq M.predicted among blacks MDRD (S/P/Bld) [Vol rate/Area] mL/min/{1.73_m2} Normal 60 - 999 {ML/MINUTE } [facility].; [facility] GFR/1.73 sq M.predicted MDRD (S/P/Bld) [Vol rate/Area] mL/min/{1.73_m2} Normal 60 - 999 {ML/MINUTE } [facility].; [facility] Globulin (S) [Mass/Vol] 3.3 g/dL Normal 1.5 - 3.8 g/dL [facility]; [facility] Glucose [Mass/Vol] 92 mg/dL Normal 74 - 106 mg/dL [facility]; [facility] Lipid 1996 panel Normal [facility] Potassium [Moles/Vol] 3.6 mmol/L Normal 3.5 - 5.1 mmol/L [facility]; [facility] Protein [Mass/Vol] 6.7 g/dL Normal 6.4 - 8.2 g/dL [facility]; [facility], [facility] Sodium [Moles/Vol] 141 mmol/L Normal 136 - 145 mmol/L [facility]; [facility] Triglyceride [Mass/Vol] 74 mg/dL Normal 0 - 150 mg/dL [facility]; [facility], [facility] TSH Qn 2.16 m[IU]/L Normal 0.35 - 3.74 {uIU/ml} [facility]; [facility], [facility] Urea nitrogen [Mass/Vol] 14 mg/dL Normal 7 - 18 mg/dL [facility]; [facility] Urea nitrogen/Creatinine [Mass ratio] 17 {ratio} Normal 0 - 30 {ratio} [facility].; [facility] Laboratory - Hematology and Cell countson 06-30-2022 Basophils (Bld) [#/Vol] 0.00 {x10EE3/UL} Normal 0.00 - 0.10 {x10EE3/UL } [facility].; [facility] Basophils/100 WBC (Bld) 0.6 % Normal 0.0 - 2.0 % [facility].; [facility] Eosinophils (Bld) [#/Vol] 0.10 {x10EE3/UL} Normal 0.00 - 0.50 {x10EE3/UL } [facility].; [facility] Eosinophils/100 WBC (Bld) 2.0 % Normal 0.0 - 7.0 % [facility].; [facility] Erythrocyte distribution width (RBC) [Ratio] 13.1 % Normal 12.0 - 15.6 % [facility].; [facility], [facility] Hematocrit (Bld) [Volume fraction] 35.3 % Normal 34.0 - 46.0 % [facility].; [facility] Hemoglobin (Bld) [Mass/Vol] 11.3 g/dL Abnormal 12.0 - 16.0 g/dL [facility].; [facility], [facility] Lymphocytes (Bld) [#/Vol] 1.50 {x10EE3/UL} Normal 0.80 - 2.80 {x10EE3/UL } [facility].; [facility], [facility] Lymphocytes/100 WBC (Bld) 23.7 % Normal 20.0 - 45.0 % [facility].; [facility], [employer]. MCH (RBC) [Entitic mass] 28 pg Normal 27 - 33 pg [facility].; [facility], [facility]. MCHC (RBC) [Mass/Vol] 32 {X10_3} Normal 32 - 3 6 {X10_3} [facility].; [facility] MCV (RBC) [Entitic vol] 88 fL Normal 80 - 99 fL [facility].; [facility], [employer]. Monocytes (Bld) [#/Vol] 1.00 {x10EE3/UL} Normal 0.20 - 1.00 {x10EE3/UL } [facility].; [facility] [employer] Monocytes/100 WBC (Bld) 15.0 % Abnormal 0.0 - 10.0 % [facility].; [facility], [employer]. Morphology Sonny (Bld) [Interp] N/A Normal [facility].; [facility], [employer]. Neutrophils (Bld) [#/Vol] 3.80 {x10EE3/UL} Normal 1.50 - 7.10 {x10EE3/UL } [facility].; [facility], [employer]. Neutrophils/100 WBC (Bld) 58.7 % Normal 46.0 - 76.0 % [facility].; [facility], [employer]. Platelet mean volume (Bld) [Entitic vol] 7.6 fL Normal 6.6 - 10.5 fL [facility].; [facility], [employer]. Platelets (Bld) [#/Vol] 461 {x10EE3/UL} Abnormal 150 - 450 {x10EE3/UL } [facility].; [facility] [employer] RBC (Bld) [#/Vol] 4.00 {x_10EE6/UL} Abnormal 4.10 - 5.30 {x_10EE6/U L} [facility].; [facility] WBC (Bld) [#/Vol] 6.5 {x_10EE3/UL} Normal 4.5 - 10.8 {x_10EE3/U L} [facility].; [facility] No Panel Informationon 06-30 AGE 82 {years} Normal [facility] ALK PHOS 111 U/L Normal 46 - 116 U/L [facility].; [facility]. CBC + DIFF Normal [facility]; [facility]. CMP with eGFR Normal [facility].; [facility]. MANUAL DIFF N/A Normal [facility]; [facility]. Absolute lymphocyte counton 02-15-2022 Lymphocytes Auto (Unsp spec) [#/Vol] 2.15 10*3/uL 0.83-4.51 [facility] Work Phone: Basophil percentageon 2021 Basophils/100 WBC (Bld) 0.4 % 0-1 [facility] Work Phone: Chloride [Moles/Vol] 107 mmol/L 98-107 [facility] Work Phone: Eosinophils/100 WBC (Bld) 2.4 % 0-5 [facility] Work Phone: Glucose [Mass/Vol] 98 mg/dL 74-106 [facility] Work Phone: Neutrophils (Bld) [#/Vol] 3.5 10*3/uL 2.0-7.7 [facility] Work Phone: Neutrophils/100 WBC (Bld) 52.1 % 47-70 [facility] Work Phone: Potassium [Moles/Vol] 4.3 mmol/L 3.5-5.1 [facility] Work Phone: Sodium [Moles/Vol] 139 mmol/L 136-145 [facility] Work Phone: WBC (Bld) [#/Vol] 6.8 10*3/uL 4.4-11.0 [facility] Work Phone: Blood erythrocytes count (nu mber/volume)on 02-15-2022 RBC (Bld) [#/Vol] 3.76 10*6/uL 4.2-5.4 [facility] Work Phone: Blood hemoglobin measurement (mass/volume)on 02-15-2022 Hemoglobin (Bld) [Mass/Vol] 11.4 g/dL 12.0-15.0 [facility] Work Phone: Blood lymphocytes/100 leukoc yteson 02-15-2022 Lymphocytes/100 WBC (Bld) 31.7 % 19-41 [facility] Work Phone: Blood monocytes/100 leukocyt eson 02-15-2022 Monocytes/100 WBC (Bld) 13.1 % 0-10 [facility] Work Phone: Blood platelet mean volumeon 02-15-2022 Platelet mean volume (Bld) [Entitic vol] 9.0 fL 6.2-12.0 [facility] Work Phone: Determination of erythrocyte mean corpuscular volume (MCV)on 02-15-2022 MCV (RBC) [Entitic vol] 95.2 fL 81-99 [facility] Work Phone: Hematocrit Auto (Bld) [Volum e fraction]on 02-15-2022 Hematocrit (Bld) [Volume fraction] 35.8 % 37-47 [facility] Work Phone: Laboratory - Chemistry and C hemistry - challengeon 02-15-2022 CO2 [Moles/Vol] 26.0 mmol/L 21.0-32.0 [facility] Work Phone: Urea nitrogen/Creatinine [Mass ratio] 23.6 mg/mg 10-20 [facility] Work Phone: Laboratory - Hematology and Cell countson 02-15-2022 Erythrocyte distribution width (RBC) [Entitic vol] 46.2 fL 35.1-43.9 [facility] Work Phone: Erythrocyte distribution width (RBC) [Ratio] 13.3 % 11.6-14.6 [facility] Work Phone: Immature granulocytes/100 WBC (Bld) 0.300 % 0.0-0.9 [facility] Work Phone: Comment on above: IG% - Immature Granu locytes (promyelocytes, myelocytes and metamyelocytes) > 1% indicates that a LEFT SHIFT is Present. MCH (RBC) [Entitic mass] 30.3 pg 27.0-32.0 [facility] Work Phone: Nucleated RBC/100 WBC (Bld) [Ratio] 0 % 0-5 [facility] Work Phone: MCHC Auto (RBC) [Mass/Vol]on 02-15-2022 MCHC (RBC) [Mass/Vol] 31.8 g/dL 32-36 [facility] Work Phone: No Panel Informationon 02-15 Estimated Creatinine Clearance Calc 35.94 ml/min [facility] Work Phone: Estimated GFR (MDRD) Amer 64 mL/min >60 [facility] Work Phone: Comment on above: GFR Calc Estimated GFR (MDRD) Non-Af Amer 53 mL/min >60 [facility] Work Phone: Comment on above: Non- GFR Calc Platelets bldon 02-15-2022 Platelets (Bld) [#/Vol] 296 10*3/uL 150-450 [facility] Work Phone: Serum or plasma calcium candice urement (mass/volume)on 02-15-2022 Calcium [Mass/Vol] 9.7 mg/dL 8.5-10.1 [facility] Work Phone: Serum or plasma creatinine m easurement (mass/volume)on 02-15-2022 Creatinine [Mass/Vol] 1.06 mg/dL 0.55-1.02 [facility] Work Phone: Comment on above: The validity of the calculated GFR & GFRAA in patients over 70 years has not been determined. Clinical correlation is essential. Serum or plasma urea nitroge n measurement (mass/volume)on 02-15-2022 Urea nitrogen [Mass/Vol] 25 mg/dL 7-18 [facility] Work Phone: Thin prep Papanicolaou smear with manual screeningon 02-15-2022 Thin prep Papanicolaou smear with manual screening 6 5-15 [facility] Work Phone: Serum or plasma folate measu rement (mass/volume)on 02-11-2022 Folate [Mass/Vol] 12.20 ng/mL 3.1-55.4 [facility] Work Phone: Absolute lymphocyte counton 12-28-2021 Lymphocytes Auto (Unsp spec) [#/Vol] 1.79 10*3/uL 0.83-4.51 [facility] Work Phone: Basophil percentageon 2021 Basophils/100 WBC (Bld) 0.7 % 0-1 [facility] Work Phone: Chloride [Moles/Vol] 108 mmol/L 98-107 [facility] Work Phone: Eosinophils/100 WBC (Bld) 2.7 % 0-5 [facility] Work Phone: Glucose [Mass/Vol] 96 mg/dL 74-106 [facility] Work Phone: Neutrophils (Bld) [#/Vol] 1.8 10*3/uL 2.0-7.7 [facility] Work Phone: Neutrophils/100 WBC (Bld) 39.9 % 47-70 [facility] Work Phone: Potassium [Moles/Vol] 3.8 mmol/L 3.5-5.1 [facility] Work Phone: Sodium [Moles/Vol] 142 mmol/L 136-145 [facility] Work Phone: WBC (Bld) [#/Vol] 4.4 10*3/uL 4.4-11.0 [facility] Work Phone: Blood erythrocytes count (nu mber/volume)on 12-28-2021 RBC (Bld) [#/Vol] 3.53 10*6/uL 4.2-5.4 [facility] Work Phone: Blood hemoglobin measurement (mass/volume)on 12-28-2021 Hemoglobin (Bld) [Mass/Vol] 10.8 g/dL 12.0-15.0 [facility] Work Phone: Blood lymphocytes/100 leukoc yteson 12-28-2021 Lymphocytes/100 WBC (Bld) 40.6 % 19-41 [facility] Work Phone: Blood monocytes/100 leukocyt eson 12-28-2021 Monocytes/100 WBC (Bld) 15.6 % 0-10 [facility] Work Phone: Blood platelet mean volumeon 12-28-2021 Platelet mean volume (Bld) [Entitic vol] 8.8 fL 6.2-12.0 [facility] Work Phone: Determination of erythrocyte mean corpuscular volume (MCV)on 12-28-2021 MCV (RBC) [Entitic vol] 96.3 fL 81-99 [facility] Work Phone: Hematocrit Auto (Bld) [Volum e fraction]on 12-28-2021 Hematocrit (Bld) [Volume fraction] 34.0 % 37-47 [facility] Work Phone: Laboratory - Chemistry and C hemistry - challengeon 12-28-2021 CO2 [Moles/Vol] 29.0 mmol/L 21.0-32.0 [facility] Work Phone: Urea nitrogen/Creatinine [Mass ratio] 29.6 mg/mg 10-20 [facility] Work Phone: Laboratory - Hematology and Cell countson 12-28-2021 Erythrocyte distribution width (RBC) [Entitic vol] 49.6 fL 35.1-43.9 [facility] Work Phone: Erythrocyte distribution width (RBC) [Ratio] 13.9 % 11.6-14.6 [facility] Work Phone: Immature granulocytes/100 WBC (Bld) 0.500 % 0.0-0.9 [facility] Work Phone: Comment on above: IG% - Immature Granu locytes (promyelocytes, myelocytes and metamyelocytes) > 1% indicates that a LEFT SHIFT is Present. MCH (RBC) [Entitic mass] 30.6 pg 27.0-32.0 [facility] Work Phone: Nucleated RBC/100 WBC (Bld) [Ratio] 0 % 0-5 [facility] Work Phone: MCHC Auto (RBC) [Mass/Vol]on 12-28-2021 MCHC (RBC) [Mass/Vol] 31.8 g/dL 32-36 [facility] Work Phone: No Panel Informationon 12-28 Estimated Creatinine Clearance Calc 38.75 ml/min [facility] Work Phone: Estimated GFR (MDRD) Amer 114 mL/min >60 [facility] Work Phone: Comment on above: GFR Calc Estimated GFR (MDRD) Non-Af Amer 95 mL/min >60 [facility] Work Phone: Comment on above: Non- GFR Calc Platelets bldon 12-28-2021 Platelets (Bld) [#/Vol] 345 10*3/uL 150-450 [facility] Work Phone: Serum or plasma calcium candice urement (mass/volume)on 12-28-2021 Calcium [Mass/Vol] 8.8 mg/dL 8.5-10.1 [facility] Work Phone: Serum or plasma creatinine m easurement (mass/volume)on 12-28-2021 Creatinine [Mass/Vol] 0.64 mg/dL 0.55-1.02 [facility] Work Phone: Comment on above: The validity of the calculated GFR & GFRAA in patients over 70 years has not been determined. Clinical correlation is essential. Serum or plasma urea nitroge n measurement (mass/volume)on 12-28-2021 Urea nitrogen [Mass/Vol] 19 mg/dL 7-18 [facility] Work Phone: Thin prep Papanicolaou smear with manual screeningon 12-28-2021 Thin prep Papanicolaou smear with manual screening 5 5-15 [facility] Work Phone: Laboratory - Chemistry and C hemistry - challengeon 12-24-2021 Cobalamin (Vitamin B12) [Mass/Vol] 354 pg/mL 211-911 [facility] Work Phone: Absolute lymphocyte counton 12-21-2021 Lymphocytes Auto (Unsp spec) [#/Vol] 2.08 10*3/uL 0.83-4.51 [facility] Work Phone: Basophil percentageon 2021 Basophils/100 WBC (Bld) 0.8 % 0-1 [facility] Work Phone: Chloride [Moles/Vol] 103 mmol/L 98-107 [facility] Work Phone: Eosinophils/100 WBC (Bld) 2.3 % 0-5 [facility] Work Phone: Glucose [Mass/Vol] 100 mg/dL 74-106 [facility] Work Phone: Comment on above: Fasting Glucose resu lt from 100 to 125 mg/dL suggests IMPAIRED HOMEOSTASIS per A.D.A. criteria. Neutrophils (Bld) [#/Vol] 2.3 10*3/uL 2.0-7.7 [facility] Work Phone: Neutrophils/100 WBC (Bld) 43.7 % 47-70 [facility] Work Phone: Potassium [Moles/Vol] 3.7 mmol/L 3.5-5.1 [facility] Work Phone: Sodium [Moles/Vol] 139 mmol/L 136-145 [facility] Work Phone: WBC (Bld) [#/Vol] 5.2 10*3/uL 4.4-11.0 [facility] Work Phone: Blood erythrocytes count (nu mber/volume)on 12-21-2021 RBC (Bld) [#/Vol] 3.80 10*6/uL 4.2-5.4 [facility] Work Phone: [phone] Blood hemoglobin measurement (mass/volume)on 12-21-2021 Hemoglobin (Bld) [Mass/Vol] 11.3 g/dL 12.0-15.0 [facility] Work Phone: Blood lymphocytes/100 leukoc yteson 12-21-2021 Lymphocytes/100 WBC (Bld) 39.8 % 19-41 [facility] Work Phone: Blood monocytes/100 leukocyt eson 12-21-2021 Monocytes/100 WBC (Bld) 12.3 % 0-10 [facility] Work Phone: Blood platelet mean volumeon 12-21-2021 Platelet mean volume (Bld) [Entitic vol] 8.6 fL 6.2-12.0 [facility] Work Phone: Determination of erythrocyte mean corpuscular volume (MCV)on 12-21-2021 MCV (RBC) [Entitic vol] 96.3 fL 81-99 [facility] Work Phone: Hematocrit Auto (Bld) [Volum e fraction]on 12-21-2021 Hematocrit (Bld) [Volume fraction] 36.6 % 37-47 [facility] Work Phone: [phone] Laboratory - Chemistry and C hemistry - challengeon 12-21-2021 CO2 [Moles/Vol] 31.0 mmol/L 21.0-32.0 [facility] Work Phone: Urea nitrogen/Creatinine [Mass ratio] 28.6 mg/mg 10-20 [facility] Work Phone: Laboratory - Hematology and Cell countson 12-21-2021 Erythrocyte distribution width (RBC) [Entitic vol] 49.7 fL 35.1-43.9 [facility] Work Phone: Erythrocyte distribution width (RBC) [Ratio] 14.0 % 11.6-14.6 [facility] Work Phone: Immature granulocytes/100 WBC (Bld) 1.100 % 0.0-0.9 [facility] Work Phone: Comment on above: IG% - Immature Granu locytes (promyelocytes, myelocytes and metamyelocytes) > 1% indicates that a LEFT SHIFT is Present. MCH (RBC) [Entitic mass] 29.7 pg 27.0-32.0 [facility] Work Phone: Nucleated RBC/100 WBC (Bld) [Ratio] 0 % 0-5 [facility] Work Phone: MCHC Auto (RBC) [Mass/Vol]on 12-21-2021 MCHC (RBC) [Mass/Vol] 30.9 g/dL 32-36 [facility] Work Phone: No Panel Informationon 12-21 Estimated Creatinine Clearance Calc 38.75 ml/min [facility] Work Phone: Estimated GFR (MDRD) Amer 93 mL/min >60 [facility] Work Phone: Comment on above: GFR Calc Estimated GFR (MDRD) Non-Af Amer 77 mL/min >60 [facility] Work Phone: Comment on above: Non- GFR Calc Platelets bldon 12-21-2021 Platelets (Bld) [#/Vol] 426 10*3/uL 150-450 [facility] Work Phone: Serum or plasma calcium candice urement (mass/volume)on 12-21-2021 Calcium [Mass/Vol] 9.4 mg/dL 8.5-10.1 [facility] Work Phone: Serum or plasma creatinine m easurement (mass/volume)on 12-21-2021 Creatinine [Mass/Vol] 0.77 mg/dL 0.55-1.02 [facility] Work Phone: Comment on above: The validity of the calculated GFR & GFRAA in patients over 70 years has not been determined. Clinical correlation is essential. Serum or plasma urea nitroge n measurement (mass/volume)on 12-21-2021 Urea nitrogen [Mass/Vol] 22 mg/dL 7-18 [facility] Work Phone: Thin prep Papanicolaou smear with manual screeningon 12-21-2021 Thin prep Papanicolaou smear with manual screening 5 5-15 [facility] Work Phone: Basophil percentageon 2021 Basophil percentage 0 SEEN /hpf 0-5 [facility] Work Phone: Basophil percentage 4.7 mg/dL 2.5-4.9 [facility] Work Phone: Bilirubin [Mass/Vol] 0.20 mg/dL 0.20-1.00 [facility] Work Phone: Comment on above: For patients on eltr ombopag therapy, use of Dimension [place] TBIL is not recommended. Protein [Mass/Vol] 6.9 g/dL 6.4-8.2 [facility] Work Phone: Bilirubin Test strip Ql (U)o n 12-20-2021 Bilirubin Ql (U) Negative Negative [facility] Work Phone: Ketones Test strip Ql (U)on 12-20-2021 Ketones Ql (U) Negative Negative [facility] Work Phone: Laboratory - Chemistry and C hemistry - challengeon 12-20-2021 ALP [Catalytic activity/Vol] 76 U/L 45-117 [facility] Work Phone: ALT [Catalytic activity/Vol] 50 U/L 13-56 [facility] Work Phone: Globulin (S) [Mass/Vol] 3.8 g/dL 2.2-4.2 [facility] Work Phone: Mucus LM Ql (Urine sed)on Mucus Ql (Urine sed) 0 SEEN /hpf [facility]: Nitrite Test strip Ql (U)on 12-20-2021 Nitrite Ql (U) Negative Negative [facility] Work Phone: Protein Test strip Ql (U)on 12-20-2021 Protein Ql (U) Negative Negative [facility] Work Phone: Serum or plasma albumin candice urement (mass/volume)on 12-20-2021 Albumin [Mass/Vol] 3.1 g/dL 3.2-5.0 [facility] Work Phone: Serum or plasma albumin/glob ulin mass ratioon 12-20-2021 Albumin/Globulin [Mass ratio] 0.8 {ratio} 0.9-2.4 [facility] Work Phone: Squamous epithelial cells de tection in urine sediment by light microscopyon 12-20-2021 Epithelial cells.squamous LM Ql (Urine sed) 0-5 SEEN /hpf 5-10 [facility] Work Phone: Thin prep Papanicolaou smear with manual screeningon 12-20-2021 Thin prep Papanicolaou smear with manual screening 35 U/L 15-37 [facility] Work Phone: Urine blood detectionon RBC Ql (U) Negative Negative [facility] Work Phone: RBC Ql (U) 0 SEEN /hpf 0-5 [facility] Work Phone: Urine clarityon 12-20-2021 Clarity (U) Clear Clear [facility] Work Phone: Urine color determinationon 12-20-2021 Color (U) Yellow Yellow [facility] Work Phone: Urine glucose detectionon Glucose Ql (U) Normal mg/dl Normal [facility] Work Phone: Urine leukocyte esterase det ection by dipstickon 12-20-2021 Leukocyte esterase Test strip Ql (U) Negative Negative [facility] Work Phone: Urine pHon 12-20-2021 pH (U) 6.0 [pH] 5.0 - 8.0 [facility] Work Phone: Urine sediment bacteria coun t by microscopy (number/high power field)on 12-20-2021 Bacteria LM.HPF (Urine sed) [#/Area] 0 /[HPF] None Seen [facility] Work Phone: Urine specific gravity measu rementon 12-20-2021 Specific gravity (U) [Rel density] 1.015 1.002-1.03 0 [facility] Work Phone: Urobilinogen Auto test strip Ql (U)on 12-20-2021 Urobilinogen Ql (U) Normal mg/dl Normal [facility] Work Phone: Laboratory - Chemistry and C hemistry - challengeon 12-17-2021 Magnesium [Mass/Vol] 2.0 mg/dL 1.6-2.6 [facility] Work Phone: Basophil percentageon 2021 Chloride [Moles/Vol] 109 mmol/L 98-107 [facility] Work Phone: Glucose [Mass/Vol] 103 mg/dL 74-106 [facility] Work Phone: Comment on above: Fasting Glucose resu lt from 100 to 125 mg/dL suggests IMPAIRED HOMEOSTASIS per A.D.A. criteria. Potassium [Moles/Vol] 3.4 mmol/L 3.5-5.1 [facility] Work Phone: Sodium [Moles/Vol] 138 mmol/L 136-145 [facility] Work Phone: Laboratory - Chemistry and C hemistry - challengeon 12-13-2021 CK [Catalytic activity/Vol] 839 U/L 26-192 [facility] Work Phone: CO2 [Moles/Vol] 21.0 mmol/L 21.0-32.0 [facility] Work Phone: Urea nitrogen/Creatinine [Mass ratio] 14.4 mg/mg 10-20 [facility] Work Phone: No Panel Informationon 12-13 Estimated Creatinine Clearance Calc 38.75 ml/min [facility] Work Phone: Estimated GFR (MDRD) Amer 135 mL/min >60 [facility] Work Phone: Comment on above: GFR Calc Estimated GFR (MDRD) Non-Af Amer 111 mL/min >60 [facility] Work Phone: Comment on above: Non- GFR Calc Serum or plasma calcium candice urement (mass/volume)on 12-13-2021 Calcium [Mass/Vol] 7.6 mg/dL 8.5-10.1 [facility] Work Phone: Serum or plasma creatinine m easurement (mass/volume)on 12-13-2021 Creatinine [Mass/Vol] 0.56 mg/dL 0.55-1.02 [facility] Work Phone: Comment on above: The validity of the calculated GFR & GFRAA in patients over 70 years has not been determined. Clinical correlation is essential. Serum or plasma urea nitroge n measurement (mass/volume)on 12-13-2021 Urea nitrogen [Mass/Vol] 8 mg/dL 7-18 [facility] Work Phone: Thin prep Papanicolaou smear with manual screeningon 12-13-2021 Thin prep Papanicolaou smear with manual screening 8 5-15 [facility] Work Phone: Basophil percentageon 2021 Basophil percentage 1.6 mg/dL 2.5-4.9 [facility] Work Phone: Laboratory - Chemistry and C hemistry - challengeon 12-12-2021 Magnesium [Mass/Vol] 2.3 mg/dL 1.6-2.6 [facility] Work Phone: Absolute lymphocyte counton 12-11-2021 Lymphocytes Auto (Unsp spec) [#/Vol] 1.05 10*3/uL 0.83-4.51 [facility] Work Phone: Basophil percentageon 2021 Basophils/100 WBC (Bld) 0.1 % 0-1 [facility] Work Phone: [phone] Bilirubin [Mass/Vol] 0.30 mg/dL 0.20-1.00 [facility] Work Phone: Comment on above: For patients on eltr ombopag therapy, use of [employer] [place] TBIL is not recommended. Eosinophils/100 WBC (Bld) 0.0 % 0-5 [facility] Work Phone: [phone] Neutrophils (Bld) [#/Vol] 10.8 10*3/uL 2.0-7.7 [facility] Work Phone: Neutrophils/100 WBC (Bld) 78.6 % 47-70 [facility] Work Phone: Protein [Mass/Vol] 6.3 g/dL 6.4-8.2 [facility] Work Phone: WBC (Bld) [#/Vol] 13.8 10*3/uL 4.4-11.0 [facility] Work Phone: Blood erythrocytes count (nu mber/volume)on 12-11-2021 RBC (Bld) [#/Vol] 3.71 10*6/uL 4.2-5.4 [facility] Work Phone: [phone] Blood hemoglobin measurement (mass/volume)on 12-11-2021 Hemoglobin (Bld) [Mass/Vol] 11.1 g/dL 12.0-15.0 [facility] Work Phone: [phone] Blood lymphocytes/100 leukoc yteson 12-11-2021 Lymphocytes/100 WBC (Bld) 7.6 % 19-41 [facility] Work Phone: Blood monocytes/100 leukocyt eson 12-11-2021 Monocytes/100 WBC (Bld) 13.1 % 0-10 [facility] Work Phone: Blood platelet mean volumeon 12-11-2021 Platelet mean volume (Bld) [Entitic vol] 9.4 fL 6.2-12.0 [facility] Work Phone: Determination of erythrocyte mean corpuscular volume (MCV)on 12-11-2021 MCV (RBC) [Entitic vol] 91.9 fL 81-99 [facility] Work Phone: Hematocrit Auto (Bld) [Volum e fraction]on 12-11-2021 Hematocrit (Bld) [Volume fraction] 34.1 % 37-47 [facility] Work Phone: Laboratory - Chemistry and C hemistry - challengeon 12-11-2021 ALP [Catalytic activity/Vol] 80 U/L 45-117 [facility] Work Phone: ALT [Catalytic activity/Vol] 45 U/L 13-56 [facility] Work Phone: Globulin (S) [Mass/Vol] 3.5 g/dL 2.2-4.2 [facility] Work Phone: Laboratory - Hematology and Cell countson 12-11-2021 Erythrocyte distribution width (RBC) [Entitic vol] 47.1 fL 35.1-43.9 [facility] Work Phone: Erythrocyte distribution width (RBC) [Ratio] 13.9 % 11.6-14.6 [facility] Work Phone: Immature granulocytes/100 WBC (Bld) 0.600 % 0.0-0.9 [facility] Work Phone: Comment on above: IG% - Immature Granu locytes (promyelocytes, myelocytes and metamyelocytes) > 1% indicates that a LEFT SHIFT is Present. MCH (RBC) [Entitic mass] 29.9 pg 27.0-32.0 [facility] Work Phone: Nucleated RBC/100 WBC (Bld) [Ratio] 0 % 0-5 [facility] Work Phone: MCHC Auto (RBC) [Mass/Vol]on 12-11-2021 MCHC (RBC) [Mass/Vol] 32.6 g/dL 32-36 [facility] Work Phone: Platelets bldon 12-11-2021 Platelets (Bld) [#/Vol] 276 10*3/uL 150-450 [facility] Work Phone: Review by pathologiston 11-14 Pathologist review Sonny (Unsp spec) [Interp] Reviewed [facility] Work Phone: Comment on above: Previous reported re sult: Pham dean Edited by: MAXI on 12/11/21:1238Neutrophilic leukocytosis.Clinical correlation necessary.Jagdish Helton M.D. 12/11/21 AMENDED REPORT 12/11/21 1238 PATH REV previously reported as: Pham dean Serum or plasma albumin candice urement (mass/volume)on 12-11-2021 Albumin [Mass/Vol] 2.8 g/dL 3.2-5.0 [facility] Work Phone: Serum or plasma albumin/glob ulin mass ratioon 12-11-2021 Albumin/Globulin [Mass ratio] 0.8 {ratio} 0.9-2.4 [facility] Work Phone: Serum procalcitonin measurem enton 12-11-2021 Procalcitonin [Mass/Vol] 4.19 ng/mL 0.00-0.09 [facility] Work Phone: Comment on above: A [...] smear with manual screening 123 U/L 15-37 [facility] Work Phone: Absolute lymphocyte counton 12-10-2021 Lymphocytes Auto (Unsp spec) [#/Vol] 1.00 10*3/uL 0.83-4.51 [facility] Work Phone: Amorphous sediment detection in urine sediment by light microscopyon 12-10-2021 Amorphous sediment LM Ql (Urine sed) 2+ [facility] Work Phone: Basophil percentageon 2021 Basophil percentage 50-100 SEEN /hpf 0-5 [facility] Work Phone: Basophils/100 WBC (Bld) 0.1 % 0-1 [facility] Work Phone: Bilirubin [Mass/Vol] 0.60 mg/dL 0.20-1.00 [facility] Work Phone: Comment on above: For patients on eltr ombopag therapy, use of [employer] [place] TBIL is not recommended. Chloride [Moles/Vol] 103 mmol/L 98-107 [facility] Work Phone: Eosinophils/100 WBC (Bld) 0.0 % 0-5 [facility] Work Phone: [phone] Glucose [Mass/Vol] 130 mg/dL 74-106 [facility] Work Phone: Comment on above: Fasting Glucose resu lt greater than or equal to 126 mg/dL suggests DIABETES MELLITUS per A.D.A. criteria. Neutrophils (Bld) [#/Vol] 10.9 10*3/uL 2.0-7.7 [facility] Work Phone: Neutrophils/100 WBC (Bld) 79.5 % 47-70 [facility] Work Phone: Potassium [Moles/Vol] 2.7 mmol/L 3.5-5.1 [facility] Work Phone: Comment on above: Critical Result(s) C alled at: 23:42:52 12/10/2021 by: CRISTAL Roberts SAFETY COUNSELOR. Results read back by same. Protein [Mass/Vol] 7.2 g/dL 6.4-8.2 [facility] Work Phone: Sodium [Moles/Vol] 137 mmol/L 136-145 [facility] Work Phone: WBC (Bld) [#/Vol] 13.7 10*3/uL 4.4-11.0 [facility] Work Phone: Bilirubin Test strip Ql (U)o n 12-10-2021 Bilirubin Ql (U) Negative Negative [facility] Work Phone: Blood erythrocytes count (nu mber/volume)on 12-10-2021 RBC (Bld) [#/Vol] 4.08 10*6/uL 4.2-5.4 [facility] Work Phone: Blood hemoglobin measurement (mass/volume)on 12-10-2021 Hemoglobin (Bld) [Mass/Vol] 12.3 g/dL 12.0-15.0 [facility] Work Phone: Blood lymphocytes/100 leukoc yteson 12-10-2021 Lymphocytes/100 WBC (Bld) 7.3 % 19-41 [facility] Work Phone: Blood manual differential co mment interpretation (narrative result)on 12-10-2021 Manual differential comment Sonny (Bld) [Interp] SCANNED [facility] Work Phone: Comment on above: MONOCYTOSIS NOTED Blood monocytes/100 leukocyt eson 12-10-2021 Monocytes/100 WBC (Bld) 12.5 % 0-10 [facility] Work Phone: Blood platelet mean volumeon 12-10-2021 Platelet mean volume (Bld) [Entitic vol] 9.2 fL 6.2-12.0 [facility] Work Phone: Determination of erythrocyte mean corpuscular volume (MCV)on 12-10-2021 MCV (RBC) [Entitic vol] 89.5 fL 81-99 [facility] Work Phone: Hematocrit Auto (Bld) [Volum e fraction]on 12-10-2021 Hematocrit (Bld) [Volume fraction] 36.5 % 37-47 [facility] Work Phone: Ketones Test strip Ql (U)on 12-10-2021 Ketones Ql (U) 150 mg/dl Negative [facility] Work Phone: Comment on above: CRITICAL VALUE *HCRI TICAL VALUE VERIFIED. CALLED TO Lida ROBERTS RN ER/ 0013 Cristal Nicholas.RESULTS READ BACK BY SAME. Laboratory - Chemistry and C hemistry - challengeon 12-10-2021 ALP [Catalytic activity/Vol] 95 U/L 45-117 [facility] Work Phone: ALT [Catalytic activity/Vol] 48 U/L 13-56 [facility] Work Phone: [phone] CK [Catalytic activity/Vol] 5736 U/L 26-192 [facility] Work Phone: CO2 [Moles/Vol] 20.0 mmol/L 21.0-32.0 [facility] Work Phone: Globulin (S) [Mass/Vol] 4.0 g/dL 2.2-4.2 [facility] Work Phone: Magnesium [Mass/Vol] 2.2 mg/dL 1.6-2.6 [facility] Work Phone: Urea nitrogen/Creatinine [Mass ratio] 30.9 mg/mg 10-20 [facility] Work Phone: Laboratory - Hematology and Cell countson 12-10-2021 Erythrocyte distribution width (RBC) [Entitic vol] 45.7 fL 35.1-43.9 [facility] Work Phone: Erythrocyte distribution width (RBC) [Ratio] 13.9 % 11.6-14.6 [facility] Work Phone: Immature granulocytes/100 WBC (Bld) 0.600 % 0.0-0.9 [facility] Work Phone: Comment on above: IG% - Immature Granu locytes (promyelocytes, myelocytes and metamyelocytes) > 1% indicates that a LEFT SHIFT is Present. MCH (RBC) [Entitic mass] 30.1 pg 27.0-32.0 [facility] Work Phone: Nucleated RBC/100 WBC (Bld) [Ratio] 0 % 0-5 [facility] Work Phone: MCHC Auto (RBC) [Mass/Vol]on 12-10-2021 MCHC (RBC) [Mass/Vol] 33.7 g/dL 32-36 [facility] Work Phone: Mucus LM Ql (Urine sed)on Mucus Ql (Urine sed) 0 SEEN /hpf [facility] Work Phone: Nitrite Test strip Ql (U)on 12-10-2021 Nitrite Ql (U) Negative Negative [facility] Work Phone: No Panel Informationon 12-10 Estimated Creatinine Clearance Calc 48.07 ml/min [facility] Work Phone: Estimated GFR (MDRD) Amer 84 mL/min >60 [facility] Work Phone: Comment on above: GFR Calc Estimated GFR (MDRD) Non-Af Amer 69 mL/min >60 [facility] Work Phone: Comment on above: Non- GFR Calc Platelets bldon 12-10-2021 Platelets (Bld) [#/Vol] 283 10*3/uL 150-450 [facility] Work Phone: Protein Test strip Ql (U)on 12-10-2021 Protein Ql (U) 100 mg/dl Negative [facility] Work Phone: Review by pathologiston 11-14 Pathologist review Sonny (Unsp spec) [Interp] May foll [facility] Work Phone: Serum or plasma albumin candice urement (mass/volume)on 12-10-2021 Albumin [Mass/Vol] 3.2 g/dL 3.2-5.0 [facility] Work Phone: Serum or plasma albumin/glob ulin mass ratioon 12-10-2021 Albumin/Globulin [Mass ratio] 0.8 {ratio} 0.9-2.4 [facility] Work Phone: Serum or plasma calcium candice urement (mass/volume)on 12-10-2021 Calcium [Mass/Vol] 8.7 mg/dL 8.5-10.1 [facility] Work Phone: Serum or plasma creatinine m easurement (mass/volume)on 12-10-2021 Creatinine [Mass/Vol] 0.84 mg/dL 0.55-1.02 [facility] Work Phone: Comment on above: The validity of the calculated GFR & GFRAA in patients over 70 years has not been determined. Clinical correlation is essential. Serum or plasma urea nitroge n measurement (mass/volume)on 12-10-2021 Urea nitrogen [Mass/Vol] 26 mg/dL 7-18 [facility] Work Phone: Squamous epithelial cells de tection in urine sediment by light microscopyon 12-10-2021 Epithelial cells.squamous LM Ql (Urine sed) 0 SEEN /hpf 5-10 [facility] Work Phone: Thin prep Papanicolaou smear with manual screeningon 12-10-2021 Thin prep Papanicolaou smear with manual screening 133 U/L 15-37 [facility] Work Phone: Thin prep Papanicolaou smear with manual screening 14 5-15 [facility] Work Phone: Urine blood detectionon 11-14 RBC Ql (U) 250 /ul Negative [facility] Work Phone: RBC Ql (U) 0-5 SEEN /hpf 0-5 [facility] Work Phone: Urine clarityon 12-10-2021 Clarity (U) Sl. Cloudy Clear [facility] Work Phone: Urine color determinationon 12-10-2021 Color (U) Yellow Yellow [facility] Work Phone: Urine glucose detectionon Glucose Ql (U) Normal mg/dl Normal [facility] Work Phone: Urine leukocyte esterase det ection by dipstickon 12-10-2021 Leukocyte esterase Test strip Ql (U) 100 /ul Negative [facility] Work Phone: Urine pHon 12-10-2021 pH (U) 6.0 [pH] 5.0 - 8.0 [facility] Work Phone: Urine sediment bacteria coun t by microscopy (number/high power field)on 12-10-2021 Bacteria LM.HPF (Urine sed) [#/Area] 4 /[HPF] None Seen [facility] Work Phone: Urine specific gravity measu rementon 12-10-2021 Specific gravity (U) [Rel density] 1.020 1.002-1.03 0 [facility] Work Phone: Urobilinogen Auto test strip Ql (U)on 12-10-2021 Urobilinogen Ql (U) 1 mg/dl Normal [facility] Work Phone: CT Up Ext w/o Contrast Lefto n 07-03-2020 CT Up Ext w/o Contrast Left Patient Name: SAPNA BULLARD Computed Tomography ACCESSION EXAM DATE/TIME PROCEDURE ORDERING PROVIDER [id number] 07/03/2020 13:[address] Up Ext w/o Contrast 59Aura -DAX SHANKS Left CPT code 05128 Reason For Exam (CT Up Ext w/o [...] Transcribed Date and Time: 07/04/2020 11:26 Normal [facility] Culture, urine Bacteria identified Cx Nom (U) Presumptive E. coli [facility] Work Phone: Bacteria identified Cx Nom (U) Positive [facility] Work Phone: Laboratory - Microbiology an d Antimicrobial susceptibility Bacteria identified Cx Nom (Bld) No growth in 5 days. [facility] Work Phone: Vital Signs Date Time Vital Sign Value Performing Clinician Facility 02-19-2025 08:52-0400 Body temperature 97.6 [degF] Dr. Genevieve Wu MD Work Phone: [facility] 02-19-2025 08:52-0400 Diastolic blood pressure 54 mm[Hg] Dr. Genevieve Wu MD Work Phone: [facility] 02-19-2025 08:52-0400 Heart rate 85 /min Dr. Genevieve Wu MD Work Phone: [facility] 02-19-2025 08:52-0400 Respiratory rate 18 /min Dr. Genevieve Wu MD Work Phone: [facility] 02-19-2025 08:52-0400 SaO2% (BldA) [Mass fraction] 98 % Dr. Genevieve Wu MD Work Phone: [facility] 02-19-2025 08:52-0400 Systolic blood pressure 113 mm[Hg] Dr. Genevieve Wu MD Work Phone: [facility] 02-14-2025 16:26-0400 Body height 165.[address] Genevieve Wu MD Work Phone: [facility] 02-14-2025 16:26-0400 Body weight 55.[address] Genevieve Wu MD Work Phone: [facility] 02-14-2025 15:37-0400 Body mass index (BMI) [Ratio] 20.2 kg/m2 Dr. Genevieve Wu MD Work Phone: [facility] 02-14-2025 15:00-0400 Body temperature 98.9 [degF] Dr. Genevieve Wu MD Work Phone: [facility] 02-14-2025 15:00-0400 Diastolic blood pressure 78 mm[Hg] Dr. Genevieve Wu MD Work Phone: [facility] 02-14-2025 15:00-0400 Heart rate 89 /min Dr. Genevieve Wu MD Work Phone: [facility] 02-14-2025 15:00-0400 Respiratory rate 16 /min Dr. Genevieve Wu MD Work Phone: [facility] 02-14-2025 15:00-0400 SaO2% (BldA) [Mass fraction] 98 % Dr. Genevieve Wu MD Work Phone: [facility] 02-14-2025 15:00-0400 Systolic blood pressure 118 mm[Hg] Dr. Genevieve Wu MD Work Phone: [facility] 02-14-2025 09:36-0400 Body height 165.[address] Genevieve Wu MD Work Phone: [facility] 02-14-2025 09:36-0400 Body mass index (BMI) [Ratio] 21.3 kg/m2 Dr. Genevieve Wu MD Work Phone: [facility] 02-14-2025 09:36-0400 Body weight 58.[address] Genevieve Wu MD Work Phone: [facility] 12-07-2024 05:45-0400 Body mass index (BMI) [Ratio] 19.8 kg/m2 Dr. Genevieve Wu MD Work Phone: [facility] 12-07-2024 05:45-0400 Body temperature 96.4 [degF] Dr. Genevieve Wu MD Work Phone: [facility] 12-07-2024 05:45-0400 Body weight 53.[address] Genevieve Wu MD Work Phone: [facility] 12-07-2024 05:45-0400 Diastolic blood pressure 58 mm[Hg] Dr. Genevieve Wu MD Work Phone: [facility] 12-07-2024 05:45-0400 Heart rate 49 /min Dr. Genevieve Wu MD Work Phone: [facility] 12-07-2024 05:45-0400 Respiratory rate 16 /min Dr. Genevieve Wu MD Work Phone: [facility] 12-07-2024 05:45-0400 SaO2% (BldA) [Mass fraction] 95 % Dr. Genevieve Wu MD Work Phone: [facility] 12-07-2024 05:45-0400 Systolic blood pressure 93 mm[Hg] Dr. Genevieve Wu MD Work Phone: [facility] 11-29-2024 10:09-0400 Body height 165.[address] Genevieve Wu MD Work Phone: [facility] 11-29-2024 10:09-0400 Body mass index (BMI) [Ratio] 19.6 kg/m2 Dr. Genevieve Wu MD Work Phone: [facility] 11-29-2024 10:09-0400 Body temperature 94.6 [degF] Dr. Genevieve Wu MD Work Phone: [facility] 11-29-2024 10:09-0400 Body weight 53.[address] Genevieve Wu MD Work Phone: [facility] 11-29-2024 10:09-0400 Diastolic blood pressure 64 mm[Hg] Dr. Genevieve Wu MD Work Phone: [facility] 11-29-2024 10:09-0400 Heart rate 55 /min Dr. Genevieve Wu MD Work Phone: [facility] 11-29-2024 10:09-0400 Respiratory rate 16 /min Dr. Genevieve Wu MD Work Phone: [facility] 11-29-2024 10:09-0400 SaO2% (BldA) [Mass fraction] 92 % Dr. Genevieve Wu MD Work Phone: [facility] 11-29-2024 10:09-0400 Systolic blood pressure 125 mm[Hg] Dr. Genevieve Wu MD Work Phone: [facility] 10-05-2024 08:22-0400 Body mass index (BMI) [Ratio] 19.6 kg/m2 Dr. Nicci Lemus MD Work Phone: [facility] 10-05-2024 08:22-0400 Body weight 53.[address] Nicci Lemus MD Work Phone: [facility] 10-05-2024 08:22-0400 Diastolic blood pressure 65 mm[Hg] Dr. Nicci Lemus MD Work Phone: [facility] 10-05-2024 08:22-0400 Heart rate 75 /min Dr. Nicci Lemus MD Work Phone: [facility] 10-05-2024 08:22-0400 Respiratory rate 18 /min Dr. Nicci Lemus MD Work Phone: [facility] 10-05-2024 08:22-0400 Systolic blood pressure 111 mm[Hg] Dr. Nicci Lemus MD Work Phone: [facility] 09-08-2024 08:39-0400 Body mass index (BMI) [Ratio] 19.4 kg/m2 Dr. Nicci Lemus MD Work Phone: [facility] 09-08-2024 08:39-0400 Body temperature 97.5 [degF] Dr. Nicci Lemus MD Work Phone: [facility] 09-08-2024 08:39-0400 Body weight 53.[address] Nicci Lemus MD Work Phone: [facility] 09-08-2024 08:39-0400 Diastolic blood pressure 77 mm[Hg] Dr. Nicci Lemus MD Work Phone: [facility] 09-08-2024 08:39-0400 Heart rate 72 /min Dr. Nicci Lemus MD Work Phone: [facility] 09-08-2024 08:39-0400 Respiratory rate 18 /min Dr. Nicci Lemus MD Work Phone: [facility] 09-08-2024 08:39-0400 SaO2% (BldA) [Mass fraction] 99 % Dr. Nicci Lemus MD Work Phone: [facility] 09-08-2024 08:39-0400 Systolic blood pressure 121 mm[Hg] Dr. Nicci Lemus MD Work Phone: [facility] 07-19-2024 09:58-0500 Body height 165.[address] Nicci Lemus MD Work Phone: [facility] 07-19-2024 09:58-0500 Body mass index (BMI) [Ratio] 18.3 kg/m2 Dr. Nicci Lemus MD Work Phone: [facility] 07-19-2024 09:58-0500 Body temperature 98.6 [degF] Dr. Nicci Lemus MD Work Phone: [facility] 07-19-2024 09:58-0500 Body weight 49.[address] Nicci Lemus MD Work Phone: [facility] 07-19-2024 09:58-0500 Diastolic blood pressure 74 mm[Hg] Dr. Nicci Lemus MD Work Phone: [facility] 07-19-2024 09:58-0500 Heart rate 89 /min Dr. Nicci Lemus MD Work Phone: [facility] 07-19-2024 09:58-0500 Respiratory rate 15 /min Dr. Nicci Lemus MD Work Phone: [facility] 07-19-2024 09:58-0500 SaO2% (BldA) [Mass fraction] 96 % Dr. Nicci Lemus MD Work Phone: [facility] 07-19-2024 09:58-0500 Systolic blood pressure 108 mm[Hg] Dr. Nicci Lemus MD Work Phone: [facility] 07-21-2023 08:45-0500 Body temperature 98 [degF] Dr. Nicholas Cohen Work Phone: [facility] 07-21-2023 08:45-0500 Body weight 48.[address] Nicholas Cohen Work Phone: [facility] 07-21-2023 08:45-0500 Diastolic blood pressure 82 mm[Hg] Dr. Nicholas Cohen Work Phone: [facility] 07-21-2023 08:45-0500 Heart rate 70 /min Dr. Nicholas Cohen Work Phone: [facility] 07-21-2023 08:45-0500 Respiratory rate 15 /min Dr. Nicholas Cohen Work Phone: [facility] 07-21-2023 08:45-0500 SaO2% (BldA) [Mass fraction] 98 % Dr. Nicholas Cohen Work Phone: [facility] 07-21-2023 08:45-0500 Systolic blood pressure 120 mm[Hg] Dr. Nicholas Cohen Work Phone: [facility] 05-14-2023 15:37-0500 Body height 156.21 cm Jaida Sanchez RN [facility], [facility].; [facility]. 05-14-2023 15:37-0500 Body mass index (BMI) [Ratio] 19.61 kg/m2 [facility].; [facility]. 05-14-2023 15:37-0500 Body surface area Derived from formula 1.45 m2 Jaida Sanchez RN [facility], [facility].; [facility]. 05-14-2023 15:37-0500 Body weight 47.85 kg Jaida Sanchez RN [facility], [facility].; [facility]. 05-14-2023 15:37-0500 Diastolic blood pressure 68 mm[Hg] Jaida Sanchez RN [facility].; [facility]. Comment on above: Patient Position: Sitting; Cuff Location : Left Arm; Cuff Size: Standard 05-14-2023 15:37-0500 Heart rate 53 /min Jaida Sanchez RN [facility]; [facility]. Comment on above: Pattern: Regular 05-14-2023 15:37-0500 Systolic blood pressure 117 mm[Hg] Jaida Sanchez RN [facility].; [facility]. Comment on above: Patient Position: Sitting; Cuff Location : Left Arm; Cuff Size: Standard 04-23-2023 11:48-0500 Body temperature 97.3 [degF] Dr. Lalo Palm Work Phone: [facility] 04-23-2023 11:48-0500 Diastolic blood pressure 68 mm[Hg] Dr. Lalo Palm Work Phone: [facility] 04-23-2023 11:48-0500 Heart rate 69 /min Dr. Lalo Palm Work Phone: [facility] 04-23-2023 11:48-0500 Respiratory rate 16 /min Dr. Lalo Palm Work Phone: [facility] 04-23-2023 11:48-0500 SaO2% (BldA) [Mass fraction] 97 % Dr. Lalo Palm Work Phone: [facility] 04-23-2023 11:48-0500 Systolic blood pressure 124 mm[Hg] Dr. Lalo Palm Work Phone: [facility] 04-23-2023 05:13-0500 Body mass index (BMI) [Ratio] 18.1 kg/m2 Dr. Lalo Palm Work Phone: [facility] 04-23-2023 05:13-0500 Body weight 49.[address] Lalo Palm Work Phone: [facility] 04-20-2023 14:09-0500 Body height [address] Lalo Palm Work Phone: [facility] 04-05-2023 11:42-0400 Body mass index (BMI) [Ratio] 17.8 kg/m2 Dr. Lalo Palm Work Phone: [facility] 04-05-2023 11:42-0400 Body temperature 97.8 [degF] Dr. Lalo Palm Work Phone: [facility] 04-05-2023 11:42-0400 Body weight 47.[address] Lalo Palm Work Phone: [facility] 04-05-2023 11:42-0400 Diastolic blood pressure 64 mm[Hg] Dr. Lalo Palm Work Phone: [facility] 04-05-2023 11:42-0400 Heart rate 50 /min Dr. Lalo Palm Work Phone: [facility] 04-05-2023 11:42-0400 Respiratory rate 14 /min Dr. Lalo Palm Work Phone: [facility] 04-05-2023 11:42-0400 SaO2% (BldA) [Mass fraction] 91 % Dr. Lalo Palm Work Phone: [facility] 04-05-2023 11:42-0400 Systolic blood pressure 106 mm[Hg] Dr. Lalo Palm Work Phone: [facility] 03-17-2023 08:45-0400 Body mass index (BMI) [Ratio] 18.3 kg/m2 Dr. Lalo Palm Work Phone: [facility] 03-17-2023 08:45-0400 Body temperature 98.8 [degF] Dr. Lalo Palm Work Phone: [facility] 03-17-2023 08:45-0400 Body weight 48.[address] Lalo Palm Work Phone: [facility] 03-17-2023 08:45-0400 Diastolic blood pressure 70 mm[Hg] Dr. Lalo Palm Work Phone: [facility] 03-17-2023 08:45-0400 Heart rate 71 /min Dr. Lalo Palm Work Phone: [facility] 03-17-2023 08:45-0400 Respiratory rate 16 /min Dr. Lalo Palm Work Phone: [facility] 03-17-2023 08:45-0400 SaO2% (BldA) [Mass fraction] 95 % Dr. Lalo Palm Work Phone: [facility] 03-17-2023 08:45-0400 Systolic blood pressure 128 mm[Hg] Dr. Lalo Palm Work Phone: [facility] 11-13-2022 10:17-0400 Body height 156.21 cm Sisi Thurman RN [facility] [facility]. 11-13-2022 10:17-0400 Body mass index (BMI) [Ratio] 21.19 kg/m2 Sisi Thurman RN [facility]. 11-13-2022 10:17-0400 Body surface area Derived from formula 1.5 m2 Sisi Thurman RN [facility], [facility]. 11-13-2022 10:17-0400 Body weight 51.71 kg Sisi Thurman RN [facility].; [facility]. 11-13-2022 10:17-0400 Diastolic blood pressure 78 mm[Hg] Sisi Thurman RN [facility].; [employer] [facility]. Comment on above: Patient Position: Sitting; Cuff Location : Left Arm; Cuff Size: Standard 11-13-2022 10:17-0400 Heart rate 57 /min Sisi Thurman RN [facility] [employer] [facility] [employer] [place] - [facility]. Comment on above: Pattern: Regular 11-13-2022 10:17-0400 Systolic blood pressure 127 mm[Hg] Sisi Thurman RN [facility]; [facility] Comment on above: Patient Position: Sitting; Cuff Location : Left Arm; Cuff Size: Standard 06-30-2022 09:15-0500 Body height 156.21 cm DUNCAN [employer] Work Phone: [facility]; [facility] 06-30-2022 09:15-0500 Body mass index (BMI) [Ratio] 20.82 kg/m2 [place] [employer] Work Phone: [facility]; [facility] Waf[facility] 06-30-2022 09:15-0500 Body surface area Derived from formula 1.49 m2 [place] [employer] Work Phone: [facility]; [facility]ics[facility] Waf[facility] 06-30-2022 09:15-0500 Body weight 50.8 kg [place] [employer] Work Phone: [facility]; [facility]icsR[facility] Waf[facility] 06-30-2022 09:15-0500 Diastolic blood pressure 68 mm[Hg] DUNCAN [employer] Work Phone: [facility]; [facility] ClinicsThink[facility] Comment on above: Patient Position: Sitting; Cuff Location : Left Arm; Cuff Size: Standard 06-30-2022 09:15-0500 Heart rate 59 /min [employer] CAMP DIRECTOR-C Work Phone: [facility]; [facility] ClinicsThink[facility] Comment on above: Pattern: Regular 06-30-2022 09:15-0500 Inhaled oxygen concentration 21 % [employer] PharmaER CAMP DIRECTOR-C Work Phone: [facility] [employer].; [employer] [facility] [employer] [facility]. Comment on above: Room air 06-30-2022 09:15-0500 SaO2% (BldA) [Mass fraction] 92 % DUNCAN ZAVALA CAMP DIRECTOR-C Work Phone: [facility] [employer] [facility]Think[facility].; [facility] [employer]. 06-30-2022 09:15-0500 Systolic blood pressure 114 mm[Hg] DUNCAN ZAVALA CAMP DIRECTOR-C Work Phone: [facility] [employer] [facility].; [facility] [employer]. Comment on above: Patient Position: Sitting; Cuff Location : Left Arm; Cuff Size: Standard 04-07-2022 11:05-0400 Body height 156.21 cm [facility], [employer] [facility], [employer] 04-07-2022 11:05-0400 Body mass index (BMI) [Ratio] 23.42 kg/m2 [facility], [employer] [facility], Inc[employer] 04-07-2022 11:05-0400 Body surface area Derived from formula 1.56 m2 [facility], [facility].; [employer] [facility] [employer] [place] [employer] [facility] [employer] [facility], [employer] 04-07-2022 11:05-0400 Body weight 57.15 kg [facility] [facility]areThink[employer].; [facility] [place] [place] [employer] [facility] [employer] 04-07-2022 11:05-0400 Diastolic blood pressure 70 mm[Hg] [facility], Inc.; [facility] [place] [place] [employer] [facility] [employer] Comment on above: Patient Position: Sitting; Cuff Location : Left Arm; Cuff Size: Standard 04-07-2022 11:05-0400 Heart rate 51 /min [facility]air[facility], [employer].; [employer] [facility] [employer] Comment on above: Pattern: Regular 04-07-2022 11:05-0400 Inhaled oxygen concentration 21 % [facility].; [facility] Wafels [facility]. Comment on above: Room air 04-07-2022 11:05-0400 SaO2% (BldA) [Mass fraction] 98 % [facility]. 04-07-2022 11:05-0400 Systolic blood pressure 159 mm[Hg] [facility].; [facility], [facility]. Comment on above: Patient Position: Sitting; Cuff Location : Left Arm; Cuff Size: Standard 02-15-2022 15:09-0400 Diastolic blood pressure 68 mm[Hg] Dr. Lalo Palm Work Phone: [facility] Work Phone: 02-15-2022 15:09-0400 Systolic blood pressure 124 mm[Hg] Dr. Lalo Palm Work Phone: [facility] Work Phone: 02-15-2022 14:11-0400 Heart rate 59 /min Dr. Lalo Palm Work Phone: [facility] Work Phone: 02-15-2022 14:11-0400 Respiratory rate 14 /min Dr. Lalo Palm Work Phone: [facility] Work Phone: 02-15-2022 14:11-0400 SaO2% (BldA) [Mass fraction] 96 % Dr. Lalo Palm Work Phone: [facility] Work Phone: 02-15-2022 12:17-0400 Body height 162.[address] Lalo Palm Work Phone: [facility] Work Phone: 02-15-2022 12:17-0400 Body mass index (BMI) [Ratio] 21.9 kg/m2 Dr. Lalo Palm Work Phone: [facility] Work Phone: 02-15-2022 12:17-0400 Body temperature 96.9 [degF] Dr. Lalo Palm Work Phone: [facility] Work Phone: 02-15-2022 12:17-0400 Body weight 58.[address] Lalo Palm Work Phone: [facility] Work Phone: 02-11-2022 10:59-0400 Body mass index (BMI) [Ratio] 23.1 kg/m2 Dr. Lalo Palm Work Phone: [facility] Work Phone: 02-11-2022 10:59-0400 Body temperature 98.2 [degF] Dr. Lalo Palm Work Phone: [facility] Work Phone: 02-11-2022 10:59-0400 Body weight 59.[address] Lalo Palm Work Phone: [facility] Work Phone: 02-11-2022 10:59-0400 Diastolic blood pressure 80 mm[Hg] Dr. Lalo Palm Work Phone: [facility] Work Phone: 02-11-2022 10:59-0400 Heart rate 57 /min Dr. Lalo Palm Work Phone: [facility] Work Phone: 02-11-2022 10:59-0400 Respiratory rate 16 /min Dr. Lalo Palm Work Phone: [facility] Work Phone: 02-11-2022 10:59-0400 SaO2% (BldA) [Mass fraction] 97 % Dr. Lalo Palm Work Phone: [facility] Work Phone: 02-11-2022 10:59-0400 Systolic blood pressure 130 mm[Hg] Dr. Lalo Palm Work Phone: [facility] Work Phone: 12-28-2021 10:24-0400 Body temperature 98 [degF] Dr. Lalo Palm Work Phone: [facility] Work Phone: 12-28-2021 10:24-0400 Diastolic blood pressure 60 mm[Hg] Dr. Lalo Palm Work Phone: [facility] Work Phone: 12-28-2021 10:24-0400 Heart rate 67 /min Dr. Lalo Palm Work Phone: [facility] Work Phone: 12-28-2021 10:24-0400 Respiratory rate 16 /min Dr. Lalo Palm Work Phone: [facility] Work Phone: 12-28-2021 10:24-0400 SaO2% (BldA) [Mass fraction] 95 % Dr. Lalo Palm Work Phone: [facility] Work Phone: 12-28-2021 10:24-0400 Systolic blood pressure 114 mm[Hg] Dr. Lalo Palm Work Phone: [facility] Work Phone: 12-26-2021 20:32-0400 Diastolic blood pressure 69 mm[Hg] Dr. Lalo Palm Work Phone: [facility] Work Phone: 12-26-2021 20:32-0400 Heart rate 79 /min Dr. Lalo Palm Work Phone: [facility] Work Phone: 12-26-2021 20:32-0400 Systolic blood pressure 126 mm[Hg] Dr. Lalo Palm Work Phone: [facility] Work Phone: 12-26-2021 15:59-0400 Body temperature 97.4 [degF] Dr. Lalo Palm Work Phone: [facility] Work Phone: 12-26-2021 15:59-0400 Respiratory rate 18 /min Dr. Lalo Palm Work Phone: [facility] Work Phone: 12-26-2021 15:59-0400 SaO2% (BldA) [Mass fraction] 98 % Dr. Lalo Palm Work Phone: [facility] Work Phone: 12-25-2021 16:45-0400 Body height [address] Lalo Palm Work Phone: [facility] Work Phone: 12-25-2021 16:45-0400 Body weight 58.[address] Lalo Palm Work Phone: [facility] Work Phone: 12-13-2021 16:09-0400 Body mass index (BMI) [Ratio] 23.3 kg/m2 Dr. Lalo Palm Work Phone: [facility] Work Phone: 12-13-2021 15:17-0400 Body temperature 97.9 [degF] Dr. Lalo Palm Work Phone: [facility] Work Phone: 12-13-2021 15:17-0400 Diastolic blood pressure 74 mm[Hg] Dr. Lalo Palm Work Phone: [facility] Work Phone: 12-13-2021 15:17-0400 Heart rate 68 /min Dr. Lalo Palm Work Phone: [facility] Work Phone: 12-13-2021 15:17-0400 Respiratory rate 18 /min Dr. Lalo Palm Work Phone: [facility] Work Phone: 12-13-2021 15:17-0400 SaO2% (BldA) [Mass fraction] 98 % Dr. Lalo Palm Work Phone: [facility] Work Phone: 12-13-2021 15:17-0400 Systolic blood pressure 142 mm[Hg] Dr. Lalo Palm Work Phone: [facility] Work Phone: 12-13-2021 06:00-0400 Body weight 63.[address] Lalo Palm Work Phone: [facility] Work Phone: 12-11-2021 14:03-0400 Body height [address] Lalo Palm Work Phone: [facility] Work Phone: 12-11-2021 01:45-0400 Body mass index (BMI) [Ratio] 16.7 kg/m2 Dr. Lalo Palm Work Phone: [facility] Work Phone: 12-11-2021 01:03-0400 Body temperature 98.6 [degF] Dr. Lalo Palm Work Phone: [facility] Work Phone: 12-11-2021 01:03-0400 Diastolic blood pressure 69 mm[Hg] Dr. Lalo Palm Work Phone: [facility] Work Phone: 12-11-2021 01:03-0400 Heart rate 86 /min Dr. Lalo Palm Work Phone: [facility] Work Phone: 12-11-2021 01:03-0400 Respiratory rate 15 /min Dr. Lalo Palm Work Phone: [facility] Work Phone: 12-11-2021 01:03-0400 SaO2% (BldA) [Mass fraction] 94 % Dr. Lalo Palm Work Phone: [facility] Work Phone: 12-11-2021 01:03-0400 Systolic blood pressure 120 mm[Hg] Dr. Lalo Palm Work Phone: [facility] Work Phone: 12-10-2021 22:22-0400 Inhaled oxygen flow rate 3 L/min Dr. Lalo Palm Work Phone: [facility] Work Phone: 12-10-2021 20:16-0400 Body height 165.[address] Lalo Palm Work Phone: [facility] Work Phone: 12-10-2021 20:16-0400 Body mass index (BMI) [Ratio] 22.3 kg/m2 Dr. Lalo Palm Work Phone: [facility] Work Phone: 12-10-2021 20:16-0400 Body weight 60.[address] Lalo Palm Work Phone: [facility] Work Phone: 09-26-2021 15:46-0400 Body temperature 97.8 [degF] Dr. Lalo Palm Work Phone: [facility] Work Phone: 09-26-2021 15:46-0400 Diastolic blood pressure 80 mm[Hg] Dr. Lalo Palm Work Phone: [facility] Work Phone: 09-26-2021 15:46-0400 Heart rate 91 /min Dr. Lalo Palm Work Phone: [facility] Work Phone: 09-26-2021 15:46-0400 Respiratory rate 16 /min Dr. Lalo Palm Work Phone: [facility] Work Phone: 09-26-2021 15:46-0400 SaO2% (BldA) [Mass fraction] 96 % Dr. Lalo Palm Work Phone: [facility] Work Phone: 09-26-2021 15:46-0400 Systolic blood pressure 128 mm[Hg] Dr. Lalo Palm Work Phone: [facility] Work Phone: Encounters Encounter Date Encounter Type Care Provider Facility Start: 02-18-2025 Dr. Felicia Paniagua MD - [facility] Work Phone: Start: 02-17-2025 Dr. Karon Nunes MD - [facility] Work Phone: Start: 02-16-2025 Dr. Felicia Paniagua MD - [facility] Work Phone: Start: 02-15-2025 Dr. Felicia Paniagua MD - [facility] Work Phone: Start: 02-14-2025 ambulatory Liudmila Morin Facility:[facility] Start: 02-14-2025 End: 02-19-2025 Evaluation and management of inpatient Dr. Genevieve Wu MD Work Phone: -[facility] Start: 02-14-2025 End: 02-19-2025 Dr. Liudmila Morin MD -[facility] Work Phone: Start: 01-30-2025 ambulatory Genevieve Wu Facilsandip ty:[facility] Start: 01-30-2025 Genevieve Wu MD -[facility] Start: 01-20-2025 End: 01-20-2025 ambulatory MARCOS WHITE Les [facility] Start: 01-16-2025 ambulatory MARCOS WHITE Les [facility] Start: 01-02-2025 End: 01-02-[address] Genevieve Wu MD Work Phone: -[facility] Start: 01-02-2025 End: 01-02-2025 Departed Referred Genevieve Wu MD -[facility] Start: 01-02-2025 Registered Referred Genevieve Bailey Start: 01-02-2025 End: 01-02-2025 Genevieve Bailey Start: 01-02-2025 End: 01-02-2025 ambulatory Genevieve Wu Facility:[facility] Start: 12-09-2024 ambulatory Willian Palm Facility:[facility] Start: 12-07-2024 End: 12-07-2024 Patient encounter procedure [employer] ANALYST Idalia Stanley -[facility] Work Phone: Start: 12-07-2024 End: 12-07-2024 [employer] ANALYST Idalia Stanley -[facility] Work Phone: Start: 12-07-2024 End: 12-07-[address] Genevieve Wu MD Work Phone: [facility] Work Phone: Start: 11-29-2024 End: 11-29-[address] Vish Cook MD -[facility] Work Phone: Start: 11-29-2024 End: 11-29-2024 Dr. Vish Cook MD -[facility] Work Phone: Start: 11-29-2024 End: 11-29-[address] Genevieve Wu MD Work Phone: [facility] Work Phone: Start: 11-28-2024 End: 11-28-[address] Willian Palm DO -[facility] Work Phone: Start: 11-28-2024 End: 11-28-[address] Genevieve Wu MD Work Phone: [facility] Work Phone: Start: 11-28-2024 End: 11-28-2024 Departed Referred Genevieve [facility] Start: 11-28-2024 [facility] Start: 11-28-2024 End: 11-28-2024 [facility] Start: 11-28-2024 End: 11-28-2024 ambulatory Willian Palm Facility:[facility] Start: 11-21-2024 End: 11-21-[address] Genevieve Wu MD Work Phone: -[facility] Start: 11-21-2024 End: 11-21-2024 Patient encounter procedure Barbara Castro NATIONAL [employer]PEL[employer] ANALYST-C -[facility] Work Phone: Start: 11-21-2024 End: 11-21-2024 Barbara Castro NATIONAL [employer]PEL[employer] ANALYST-C -[facility] Work Phone: Start: 11-08-2024 Non-patient / Non-visit Dr. Sharon Crouch MD -[facility] [place] Start: 11-08-2024 End: 11-08-[address] Nicci Lemus MD Work Phone: [facility] Work Phone: Start: 11-08-2024 End: 11-08-[address] Yunior Desai MD -[facility] Work Phone: Start: 11-08-2024 End: 11-08-2024 Dr. Sharon Crouch MD -[facility] [place] Start: 11-08-2024 End: 11-08-2024 ambulatory Yunior Desai Facility:[facility] Start: 10-31-2024 End: 10-31-2024 [facility]ed [facility] Start: 10-31-2024 End: 10-31-2024 [facility] Start: 10-31-2024 End: 10-31-2024 ambulatory Genevieve CUBA Facility:[facility] Start: 10-27-2024 End: 10-27-[address] Genevieve Wu MD Work Phone: -[facility] Start: 10-27-2024 End: 10-27-2024 Patient encounter procedure Barbara DELUNA -[facility] Work Phone: Start: 10-27-2024 End: 10-27-2024 Barbara DELUNA -[facility] Work Phone: Start: 10-05-2024 End: 10-05-[address] Yunior Desai MD -[facility] Work Phone: Start: 10-05-2024 End: 10-05-2024 ambulatory Yunior Desai Facility:[facility] Start: 10-03-2024 End: 10-03-[address] Nicci Lemus MD Work Phone: [facility] Work Phone: Start: 10-03-2024 End: 10-03-2024 Departed Referred Genevieve Wu MD -[facility] It[facility] Start: 10-03-2024 End: 10-03-2024 ambulatory Genevieve CUBA Facility:[facility] Start: 09-08-2024 End: 09-08-[address] Willian Palm DO -[facility] Work Phone: Start: 09-08-2024 End: 09-08-2024 ambulatory Willian Palm Facility:[facility] Start: 08-29-2024 End: 08-29-2024 Departed Referred Genevieve Wu MD -[facility] Start: 08-29-2024 End: 08-29-2024 ambulatory Genevieve CUBA Facility:[facility] Start: 08-11-2024 End: 08-11-2024 ambulatory MARCOS WHITE [facility] Start: 08-03-2024 End: 08-03-[address] Genevieve Wu MD -[facility] Work Phone: Start: 08-03-2024 End: 08-03-2024 ambulatory Genevieve Wu Facility:[facility] Start: 08-01-2024 ambulatory Genevieve Wu OLS Fa cility:[facility] Start: 08-01-2024 Registered Referred Genevieve NguyễnJanes [facility] Start: 07-19-2024 End: 07-19-[address] Vish Cook MD -[facility] Work Phone: Start: 07-19-2024 End: 07-19-2024 ambulatory Nicci [facility] Facility:[facility] Start: 07-12-2024 End: 07-12-2024 ambulatory Genevieve Wu Facility:[facility] Start: 07-12-2024 End: 07-12-[address] Genevieve Wu MD -[facility] Work Phone: Start: 07-04-2024 End: 07-04-2024 ambulatory Barbara Castro N[employer]PEL[employer] ANALYST Facility:[facility] Start: 07-04-2024 End: 07-04-2024 Patient encounter procedure Barbara Castro NATIONAL [employer] ANALYST-C -[facility] Work Phone: Start: 06-30-2024 ambulatory [facility] Facility:[facility] Start: 06-30-2024 Registered Referred Genevieve Wu MD -[facility] Start: 06-27-2024 End: 06-27-2024 ambulatory Barbara Castro NATIONAL [employer] ANALYST Facility:[facility] Start: 06-23-2024 ambulatory [facility] Facility:[facility] Start: 06-21-2024 End: 06-21-2024 ambulatory Genevieve Wu Facility:[facility] Start: 06-20-2024 End: 06-20-2024 ambulatory Babrara Castro N[employer] ANALYST Facility:[facility] Start: 06-17-2024 ambulatory [facility] Facility:[facility] Start: 06-16-2024 End: 06-16-2024 ambulatory Barbara Castro NATIONAL OPEL[employer] ANALYST Facility:[facility] Start: 06-11-2024 End: 06-11-2024 ambulatory Hilaria Villagran Facility:[facility] Start: 06-07-2024 End: 06-14-2024 ambulatory Yonitigre Villagran Facility:[facility] Start: 05-30-2024 End: 05-30-2024 Emergency department patient visit Nicci Lemus Facility:[facility] Start: 02-23-2024 End: 02-23-2024 Historical Summary DUNCAN ZAVALA CAMP DIRECTOR-C Work Phone: [facility] Start: 02-05-2024 End: 02-05-2024 ambulatory MARCOS WHITE [facility] Start: 08-17-2023 End: 08-17-[address] Nicholas Cohen Work Phone: [facility] Work Phone: Start: 08-17-2023 End: 08-17-[address] Nicholas Cohen Work Phone: [facility] Work Phone: Start: 08-14-2023 End: 08-14-[address] Nicholas Cohen Work Phone: [facility] Work Phone: Start: 08-14-2023 End: 08-14-[address] Nicholas Cohen Work Phone: [facility] Work Phone: Start: 08-10-2023 End: 08-10-[address] Nicholas Cohen Work Phone: [facility]-Physical Therapy Work Phone: Start: 07-21-2023 End: 07-21-[address] Nicholas Cohen Work Phone: [facility] Work Phone: Start: 05-25-2023 End: 05-25-[address] Lalo Plam Work Phone: [facility] Work Phone: Start: 05-25-2023 End: 05-25-[address] Lalo Palm Work Phone: [facility] Work Phone: Start: 05-25-[address] Kamari Palm Work Phone: [facility]-Physical Therapy Work Phone: Start: 05-14-2023 End: 05-14-2023 Office outpatient visit 15 minutes DUNCAN SALLY CAMP DIRECTOR-C Work Phone: [facility] Start: 04-23-2023 Non-patient / Non-visit Dr. Lalo Palm Work Phone: [facility] Work Phone: Start: 04-22-2023 Non-patient / Non-visit Dr. Lalo Palm Work Phone: [facility] Work Phone: Start: 04-21-2023 Non-patient / Non-visit Dr. Lalo Palm Work Phone: [facility] Work Phone: Start: 04-20-2023 Non-patient / Non-visit Dr. Lalo Palm Work Phone: [facility] Work Phone: Start: 04-19-2023 Non-patient / Non-visit Dr. Lalo Palm Work Phone: [facility] Work Phone: Start: 04-18-2023 Non-patient / Non-visit Dr. Lalo Palm Work Phone: [facility] Work Phone: Start: 04-17-2023 Non-patient / Non-visit Dr. Lalo Palm Work Phone: [facility] Work Phone: Start: 04-16-2023 End: 04-23-2023 Evaluation and management of inpatient Dr. Lalo Palm Work Phone: [facility]-Medical Surgical 3 Work Phone: Start: 04-05-2023 End: 04-05-[address] Lalo Palm Work Phone: [facility]-Laboratory, Specimen Work Phone: Start: 04-05-2023 End: 04-05-[address] Lalo Palm Work Phone: [facility] Work Phone: Start: 03-17-2023 End: 03-17-[address] Lalo Palm Work Phone: [facility] Work Phone: Start: 11-17-2022 End: 11-17-2022 Results Review DUNCAN ZAVALA CAMP DIRECTOR-C Work Phone: [employer] Start: 11-13-2022 End: 11-18-[address] NICCI LEMUS MD Facility:[facility] Start: 11-13-2022 End: 11-13-2022 Patient encounter procedure DUNCAN ZAVALA CAMP DIRECTOR-C Work Phone: [employer] Start: 11-13-2022 End: 11-13-2022 Office outpatient visit 15 minutes DUNCAN ZAVALA CAMP DIRECTOR-C Work Phone: [employer] Start: 08-04-2022 End: 08-04-2022 Historical Summary DUNCAN BERNSTEINER CAMP DIRECTOR-C Work Phone: [employer] Start: 07-04-2022 End: 07-04-2022 Patient encounter procedure DUNCAN ZAVALA CAMP DIRECTOR-C [facility] Start: 07-01-2022 End: 07-01-2022 Results Review DUNCAN ZAVALA CAMP DIRECTOR-C [facility] Start: 06-30-2022 End: 06-30-2022 Lab Only DUNCAN BERNSTEINER CAMP DIRECTOR-C [facility] Start: 06-30-2022 End: 06-30-2022 Office outpatient visit 25 minutes DUNCAN BERNSTEINER CAMP DIRECTOR-C Work Phone: [facility] Start: 04-24-2022 End: 04-24-2022 Phone Encounter DUNCAN BERNSTEINER CAMP DIRECTOR-C Work Phone: [facility] [place] Start: 04-23-2022 End: 04-23-2022 Medication Refill/Order DUNCAN BERNSTEINER CAMP DIRECTOR-C Work Phone: [facility] Start: 04-07-2022 End: 04-07-2022 Office outpatient new 60 minutes DUNCAN BERNSTEINER CAMP DIRECTOR-C [facility] Start: 02-15-2022 End: 02-15-2022 Emergency department patient visit Dr. Lalo Palm Work Phone: [facility]-Emergency Department Start: 02-11-2022 End: 02-11-[address] Lalo Palm Work Phone: [facility] Work Phone: Start: 02-11-2022 End: 02-11-[address] Lalo Palm Work Phone: [facility] Start: 02-11-2022 End: 02-11-[address] Lalo Palm Work Phone: [facility] Start: 12-24-2021 End: 12-24-[address] Lalo Palm Work Phone: [facility] Start: 12-13-2021 End: 12-28-2021 Evaluation and management of inpatient Dr. Lalo Palm Work Phone: [facility]-Transitional Care Unit Start: 12-13-2021 Non-patient / Non-visit Dr. Lalo Palm Work Phone: [facility] Start: 12-12-2021 Non-patient / Non-visit Dr. Lalo Palm Work Phone: [facility] Start: 12-11-2021 End: 12-13-2021 Evaluation and management of inpatient Dr. Lalo Palm Work Phone: [facility] 3 Start: 10-29-2021 Non-patient / Non-visit Dr. Lalo Palm Work Phone: [facility] Start: 09-26-2021 End: 09-26-[address] Lalo Palm Work Phone: [facility] Start: 07-03-2020 End: 07-03-2020 Subsequent hospital visit by physician Gerson Adamson Work Phone: [facility] Comment on above: Other closed displac ed fracture of distal end of left humerus, initial encounter Procedures Date Procedure Procedure Detail Performing Clinician Start: 02-19-2025 Blood count smear mc rscp w/mnl difrntl wbc count Dr. Genevieve Wu MD Work Phone: Start: 02-19-[address] Genevieve Wu MD Work Phone: Start: 02-19-2025 Mean corpuscular hem oglobin concentration determination Dr. Genevieve Wu MD Work Phone: Start: 02-19-2025 Nucleated red blood cell count procedure Dr. Genevieve Wu MD Work Phone: Start: 02-19-2025 Platelet mean volume determination Dr. Genevieve Wu MD Work Phone: Start: 02-14-2025 Legionella pneumophi la antigen assay Dr. Genevieve Wu MD Work Phone: Start: 02-14-2025 End: 02-14-2025 Streptococcus pneumoniae antigen assay Dr. Genevieve Wu MD Work Phone: Start: 02-14-2025 Dr. New Wu MD Work Phone: Start: 02-14-2025 Urine microscopy: red cells Dr. Genevieve Wu MD Work Phone: Start: 02-14-2025 Urnls dip stick/tabl et reagent auto microscopy Dr. Genevieve Wu MD Work Phone: Start: 02-14-2025 X-ray of chest, PA a nd lateral views Dr. Genevieve Wu MD Work Phone: Start: 02-14-2025 End: 02-14-[address] Genevieve Wu MD Work Phone: Start: 02-14-2025 Calculation of inter national normalized ratio Dr. Genevieve Wu MD Work Phone: Start: 02-14-[address] Genevieve Wu MD Work Phone: Start: 02-14-2025 Mean corpuscular hem oglobin concentration determination Dr. Genevieve Wu MD Work Phone: Start: 02-14-2025 Nucleated red blood cell count procedure Dr. Genevieve Wu MD Work Phone: Start: 02-14-2025 Platelet mean volume determination Dr. Genevieve Wu MD Work Phone: Start: 02-14-2025 [address] lipa se measurement Dr. Genevieve Wu MD Work Phone: Start: 01-30-2025 Blood count smear mc rscp w/mnl difrntl wbc count Dr. Genevieve Wu MD Work Phone: Start: 01-30-2025 Mean corpuscular hem oglobin concentration determination Dr. Genevieve Wu MD Work Phone: Start: 01-30-2025 Nucleated red blood cell count procedure Dr. Genevieve Wu MD Work Phone: Start: 01-30-2025 Platelet mean volume determination Dr. Genevieve Wu MD Work Phone: Start: 01-02-2025 Blood count smear mc rscp w/mnl difrntl wbc count Dr. Genevieve Wu MD Work Phone: Start: 01-02-2025 Mean corpuscular hem oglobin concentration determination Dr. Genevieve Wu MD Work Phone: Start: 01-02-2025 Nucleated red blood cell count procedure Dr. Genevieve Wu MD Work Phone: Start: 01-02-2025 Platelet mean volume determination Dr. Genevieve Wu MD Work Phone: Start: 01-02-2025 Total cholesterol:HD L ratio measurement Dr. Genevieve Wu MD Work Phone: Start: 01-02-2025 Vitamin D, 25-hydrox y measurement Dr. Genevieve Wu MD Work Phone: Comment on above: Vitamin D StatusDefi ciency: <20 ng/mL (50nmol/L)Insufficiency: 20-30 ng/mL (50-75 nmol/L)Sufficiency: 30-100 ng/mL (75-250 nmol/L)Toxicity: >100 ng/mL (>250 nmol/L) Start: 11-28-2024 CT of chest without contrast Dr. Genevieve Wu MD Work Phone: Start: 11-28-2024 Blood count smear mc rscp w/mnl difrntl wbc count Dr. Genevieve Wu MD Work Phone: Start: 11-28-2024 Mean corpuscular hem oglobin concentration determination Dr. Genevieve Wu MD Work Phone: Start: 11-28-2024 Nucleated red blood cell count procedure Dr. Genevieve Wu MD Work Phone: Start: 11-28-2024 Platelet mean volume determination Dr. Genevieve Wu MD Work Phone: Start: 10-31-2024 Blood count smear mc rscp w/mnl difrntl wbc count Dr. Genevieve Wu MD Work Phone: Start: 10-31-2024 Mean corpuscular hem oglobin concentration determination Dr. Genevieve Wu MD Work Phone: Start: 10-31-2024 Nucleated red blood cell count procedure Dr. Genevieve Wu MD Work Phone: Start: 10-31-2024 Platelet mean volume determination Dr. Genevieve Wu MD Work Phone: Start: 10-03-2024 Vitamin D, 25-hydrox y measurement [...] list Tucker LEMUS MD Work Phone: Start: 04-16-2023 Plain [...] 04-07-2022 Dischrg meds reconciled w/current med list R NICCI LEMUS MD Work Phone: Start: 12-24-2021 MRI [...] b all. Screws and plates placed IVÁN SHERITA Comment on above: 2016 Shoulder surgery IVÁN JALEN COLON Comment on above: [address] Lalo parra Work Phone: Viral antigen assay Dr. Willie Palm Work Phone: Plan of Treatment Date Care Activity Detail Author Start: 02-19-2025 Patient discharge [facility] Start: 02-14-2025 Following clinical pathway protocol [facility] Start: 02-14-2025 Assessment of risk o f venous thromboembolism [facility] Start: 02-14-2025 Elevation of head of bed [facility] Start: 02-14-2025 Inhalation therapy procedure [facility] Start: 02-14-2025 Insertion of cathete r into peripheral vein [facility] Start: 02-14-2025 Patient education [facility] Start: 02-14-2025 Providing care accor ding to standard [facility] Start: 02-14-2025 Provision of activit y privileges [facility] Start: 02-14-2025 Referral to occupati onal therapist [facility] Start: 02-14-2025 Referral to service [facility] Start: 02-14-2025 [facility] Start: 02-14-2025 Bacteria identified in Sputum by Culture [facility] Start: 02-14-2025 Legionella pneumophi la Ag [Presence] in Urine [facility] Start: 02-14-2025 Streptococcus pneumo niae antigen assay [facility] Start: 02-14-2025 Verification routine [facility] Start: 02-14-2025 Admission procedure [facility] Start: 02-14-2025 Hospital admission, emergency, from emergency room, medical nature [facility] Start: 02-14-2025 [facility] Start: 02-14-2025 Consultation [facility] Start: 02-14-2025 Patient referral to dietitian [facility] Start: 04-23-2023 Patient discharge [facility] Start: 04-18-2023 [facility] Start: 04-16-2023 Application of intermittent pneumatic compression device [facility] Start: 04-16-2023 Aspiration precautions [facility] Start: 04-16-2023 Assessment of risk o f venous thromboembolism [facility] Start: 04-16-2023 Fall prevention [facility] Start: 04-16-2023 Inhalation therapy procedure [facility] Start: 04-16-2023 Insertion of cathete r into peripheral vein [facility] Start: 04-16-2023 Introduction of urin inga catheter [facility] Start: 04-16-2023 Measuring intake and output [facility] Start: 04-16-2023 Providing care accor ding to standard [facility] Start: 04-16-2023 Provision of activit y privileges [facility] Start: 04-16-2023 Referral to occupati onal therapist [facility] Start: 04-16-2023 Referral to service [facility] Start: 04-16-2023 [facility] Start: 04-16-2023 Following clinical pathway protocol [facility] Start: 04-16-2023 Admission procedure [facility] Start: 04-16-2023 Patient referral to dietitian [facility] Start: 11-13-2022 Blood occult peroxid ase actv qual feces 1 deter [facility] [place] [employer] [place] - [facility] Start: 11-13-2022 Blood count complete auto&auto difrntl wbc [facility] Start: 06-30-2022 Cv strs tst xers&/or rx cont ecg w/si&r CARDIOVASCULAR STRESS [id number] ISCAN- WITH IMAGING - ([id number]) ([id number]) Start: 30-Jun-2022 [facility] Start: 06-30-2022 Ecg routine ecg w/le ast 12 lds w/i&r ELECTROCARDIOGRAM, COMPLETE (99001) Start: 30-Jun-2022 [facility] Start: 04-28-2022 Assay of iron [facility] Start: 04-28-2022 Blood count complete auto&auto difrntl wbc [facility] Start: 04-28-2022 Comprehensive metabo lic panel [facility] Start: 04-07-2022 Adv care pln tlkd & alt dcsn maker docd ADV CARE PLAN DISCUSSED & DOCUMENTED, SURROGATE OR PLAN IN PLACE (1107A) Start: 07-Apr-2022 [facility] Start: 02-11-2022 Thiamine measurement [facility] Work Phone: Start: 02-01-2022 Blood chemistry [facility] Work Phone: Start: 01-25-2022 Blood chemistry [facility] Work Phone: Start: 01-18-2022 Blood chemistry [facility] Work Phone: Start: 01-11-2022 Blood chemistry [facility] Work Phone: Start: 01-04-2022 Blood chemistry [facility] Work Phone: Start: 12-29-2021 Development of care plan [facility] Work Phone: Start: 12-28-2021 Blood chemistry [facility] Work Phone: Start: 12-28-2021 Patient discharge [facility] Work Phone: Start: 12-27-2021 Referral to service [facility] Work Phone: Start: 12-24-2021 [facility] Work Phone: Start: 12-23-2021 End: 12-24-2021 [facility] Work Phone: Start: 12-21-2021 Development of care plan [facility] Work Phone: Start: 12-20-2021 End: 12-20-2021 [facility] Work Phone: Start: 12-19-2021 [facility] Work Phone: Start: 12-18-2021 Blood chemistry [facility] Work Phone: Start: 12-17-2021 Speech therapy management [facility] Work Phone: Start: 12-17-2021 Blood chemistry [facility] Work Phone: Start: 12-17-2021 [facility] Work Phone: Start: 12-16-2021 Speech therapy assessment [facility] Work Phone: Start: 12-16-2021 Blood chemistry [facility] Work Phone: Start: 12-16-2021 [facility] Work Phone: Start: 12-15-2021 Blood chemistry [facility] Work Phone: Start: 12-14-2021 Development of care plan [facility] Work Phone: Start: 12-14-2021 Patient referral to dietitian [facility] Work Phone: Start: 12-14-2021 Developing a treatme nt plan [facility] Work Phone: Start: 12-14-2021 Blood chemistry [facility] Work Phone: Start: 12-13-2021 Verification routine [facility] Work Phone: Start: 12-13-2021 Following clinical pathway protocol [facility] Work Phone: Start: 12-13-2021 Admission procedure [facility] Work Phone: Start: 12-13-2021 Measuring intake and output [facility] Work Phone: Start: 12-13-2021 Patient referral to dietitian [facility] Work Phone: Start: 12-13-2021 Referral to occupati onal therapist [facility] Work Phone: Start: 12-13-2021 Referral to service [facility] Work Phone: Start: 12-13-2021 Vital signs measurements [facility] Work Phone: Start: 12-13-2021 End: 12-14-2021 [facility] Work Phone: Start: 12-13-2021 Patient discharge [facility] Work Phone: Start: 12-11-2021 End: 12-12-2021 [facility] Work Phone: Start: 12-11-2021 End: 12-11-2021 Blood culture [facility] Work Phone: Start: 12-11-2021 Application of intermittent pneumatic compression device [facility] Work Phone: Start: 12-11-2021 Following clinical pathway protocol [facility] Work Phone: Start: 12-11-2021 Aspiration precautions [facility] Work Phone: Start: 12-11-2021 Assessment of risk o f venous thromboembolism [facility] Work Phone: Start: 12-11-2021 Fall prevention [facility] Work Phone: Start: 12-11-2021 Incentive spirometry [facility] Work Phone: Start: 12-11-2021 Inhalation therapy procedure [facility] Work Phone: Start: 12-11-2021 Insertion of cathete r into peripheral vein [facility] Work Phone: Start: 12-11-2021 Introduction of urin inga catheter [facility] Work Phone: Start: 12-11-2021 Measuring intake and output [facility] Work Phone: Start: 12-11-2021 Oxygen therapy [facility] Work Phone: Start: 12-11-2021 Providing care accor ding to standard [facility] Work Phone: Start: 12-11-2021 Provision of activit y privileges [facility] Work Phone: Start: 12-11-2021 Referral to occupati onal therapist [facility] Work Phone: Start: 12-11-2021 Referral to service [facility] Work Phone: Start: 12-11-2021 End: 12-11-2021 [facility] Work Phone: Start: 12-11-2021 Verification routine [facility] Work Phone: Start: 12-11-2021 Admission procedure [facility] Work Phone: Start: 12-11-2021 Patient referral to dietitian [facility] Work Phone: Start: 12-10-2021 [facility] Work Phone: Start: 10-29-2021 Patient referral [facility] Work Phone: Start: 06-27-2020 Annual Wellness Visi t (AWV) Annual Wellness Visit (AWV) [facility] [place] Start: 02-14-2020 Influenza vaccination Flu vaccine (# 1) [place], [place] Start: 01-18-1996 Screening for osteoporosis DEXA (modify frequency per FRAX score) [place] Start: 1991 Shingles Vaccine (1 of 2) Buitrago gles Vaccine (1 of 2) [place] Start: 01-18-1960 DTaP/Tdap/Td vaccine (1 - Tdap) DTaP/Tdap/Td vaccine (1 - Tdap) [place], [place] Start: 1941 Hepatitis C screening Hepatitis C sc reen [place] Bacteria identified in Blood by Culture Blood Culture [facility] Work Phone: Blood culture [facility] Work Phone: CT Chest WO contrast [facility] End: 07-03-2020 CT ELBOW LEFT WO CONTRAST [place] Comment on above: 1 Occurrences starti ng 07/03/2020 until 07/03/2020 End: 07-03-2020 CT UPPER EXTREMITY LEFT WO CONTRAST CT UPPER EXTREMITY LEFT WO CONTRAST Imaging Routine Once for 1 Occurrences starting 07/03/2020 until 07/03/2020 [place] Comment on above: Once for 1 Occurrenc es starting 07/03/2020 until 07/03/2020 CT UPPER EXTREMITY L EFT WO CONTRAST CT UPPER EXTREMITY LEFT WO CONTRAST Imaging Routine 07/03/2020 12:46 PM EST [place], [place] MR Brain WO contrast [facility] Work Phone: Patient Education [facility] Work Phone: Patient referral [facility] Work Phone: Thiamine measurement [facility] Work Phone: [facility] Immunizations Immunization Date Immunization Notes Care Provider Jo-Ann donohue 05-14-2023 influenza, injectabl e, quadrivalent, preservative free DUNCAN ZAVALA CAMP DIRECTOR-C Work Phone: [facility]. Comment on above: Site: Right Tessie rivas: * Influenza (Flu) Vaccine (Inactivated or Recombinant) (01/18/21) 05-14-2023 influenza virus vacc ine, unspecified formulation DUNCAN PLATTIKEDEIRDRE CAMP DIRECTOR-C Work Phone: [facility]; [facility] Comment on above: Had immunization. 01-02-2021 Covid (Pfizer) Dr. Lalo marquis Work Phone: [facility] 12-12-2020 Covid (Pfizer) Dr. Lalo marquis Work Phone: [facility] 06-18-[address] Lalo Palm Work Phone: [facility] 01-07-2018 pneumococcal polysaccharide vaccine, [address] Lalo Palm Work Phone: [facility] 01-07-[address] Bhavin Palm Work Phone: [facility] Work Phone: 01-07-2018 pneumococcal vaccine , unspecified formulation Dr. Lalo Palm Work Phone: [facility] 06-04-2001 TD(adult) unspecifie d formulation Dr. Lalo Palm Work Phone: [facility] Payers Date Payer Category Payer Self-pay [id number] 2020 Medicare AETNA MEDICARE A ETNA MEDICARE-ADVANTAGE PPO [id number] 2020-Present [address] [place] [address] Medicare [id number] 2006 Private Health Insurance 101 [id number] 1940 Unknown [id number] 2.16.840.1.985873.3.579.2.6 27 1941 Unknown [id number] 2.16.840.1.551026.3.579.2.6 51 1941 Unknown [id number] 2.16.840.1.837892.3.579.2.6 51 1941 Unknown [id number] 2.16.840.1.048836.3.579.2.6 51 1941 Unknown [id number] 2.16.840.1.258442.3.579.2.6 51 Medicare [id number] Unknown [facility] [id number] Unknown [id number] 2.16.840.1.738782.3.579.2.4 62 Unknown [id number] 2.16.840.1.351974.3.579.2.4 62 Unknown [id number] 2.16.840.1.870586.3.579.2.4 62 Unknown [id number] 2.16.840.1.926732.3.579.2.4 62 Unknown [id number] 2.16.840.1.878635.3.579.2.4 62 Unknown [id number] 2.16.840.1.447308.3.579.2.4 62 Unknown [id number] 2.16.840.1.733595.3.579.2.4 62 Unknown [id number] 2.16.840.1.715740.3.579.2.4 62 Unknown [id number] 2.16.840.1.264228.3.579.2.4 62 Unknown [id number] 2.16.840.1.532715.3.579.2.4 62 Unknown [id number] 2.16.840.1.673715.3.579.2.4 62 Unknown [id number] 2.16.840.1.561442.3.579.2.4 62 Unknown [id number] 2.16.840.1.423727.3.579.2.4 62 Unknown [id number] 2.16.840.1.724569.3.579.2.4 62 Unknown [id number] 2.16.840.1.614245.3.579.2.4 62 Unknown [id number] 2.16.840.1.952706.3.579.2.4 62 Unknown [id number] 2.16.840.1.722655.3.579.2.4 62 Unknown [id number] 2.16.840.1.804759.3.579.2.4 62 Unknown [id number] 2.16.840.1.071278.3.579.2.4 62 Unknown [id number] 2.16.840.1.182770.3.579.2.4 62 Unknown [id number] 2.16.840.1.282354.3.579.2.4 62 Unknown [id number] 2.16.840.1.747720.3.579.2.4 62 Unknown [id number] 2.16.840.1.140345.3.579.2.4 62 Unknown [id number] 2.16.840.1.291814.3.579.2.4 62 Unknown [id number] 2.16.840.1.347559.3.579.2.4 62 Unknown [id number] 2.16.840.1.821929.3.579.2.4 62 Unknown [id number] 2.16.840.1.541648.3.579.2.4 62 Unknown [id number] 2.16.840.1.913962.3.579.2.4 62 Unknown [id number] 2.16.840.1.925045.3.579.2.4 62 Unknown [id number] 2.16.840.1.836238.3.579.2.4 62 Unknown [id number] 2.16.840.1.731629.3.579.2.4 62 Unknown [id number] 2.16.840.1.475880.3.579.2.4 62 Unknown [id number] 2.16.840.1.192211.3.579.2.4 62 Unknown [id number] 2.16.840.1.933838.3.579.2.4 62 Unknown [id number] 2.16.840.1.631593.3.579.2.4 62 Unknown [id number] 2.16.840.1.878971.3.579.2.4 62 Unknown [id number] 2.16.840.1.477349.3.579.2.4 62 Unknown [id number] 2.16.840.1.558465.3.579.2.4 62 Unknown [id number] 2.16.840.1.132373.3.579.2.4 62 Unknown [id number] 2.16.840.1.218890.3.579.2.4 62 Unknown [id number] 2.16.840.1.594468.3.579.2.4 62 Unknown [id number] 2.16.840.1.405624.3.579.2.4 62 Unknown [id number] 2.16.840.1.945814.3.579.2.4 62 Unknown [id number] 2.16.840.1.264515.3.579.2.4 62 Social History Date Type Detail Facility Start: 07-03-2020 End: 04-16-2023 Tobacco smoking status NHIS Unknown if ever smoked [facility] Sex Assigned At Not on file [place] Exposure to SARS-CoV -2 (event) Not sure [place] Start: 1940 Sex Assigned At Female W [facility] Start: 01-04-2018 None [facility] Start: 01-04-2018 Alone [facility] Start: 01-15-2018 Non-smoker [facility] Alcohol Use: Alcohol Use: ; N o [facility]. [facility] Marital status: Marital status: ; . [facility] Tobacco use: Tobacco use: ; F ormer smoker. [facility] Work Phone: Occasional alcohol use [facility] Work Phone: Never smoked tobacco [facility] Work Phone: Start: 06-07-2024 End: 02-14-2025 Ex-smoker [facility] Medical Equipment Procedure Code Equipment Code [...] FDA Start: 12-30-2017 11MM TFN CANNULA JOSE MAIRA NAIL FDA Start: 12-30-2017 FDA Start: 12-30-2017 FDA Start: 12-30-2017 Goals Date Patient Goal Desired Activity /State Functional Status Date Assessment Result Facility 02-19-2025 Functional status Chair [facility] Work Phone: 04-23-2023 Functional status Bathroom Privilege [facility] ter [facility] Work Phone: 12-28-2021 Functional status Ambulates;Up ad gary Delaney ster [facility] Work Phone: 12-26-2021 Functional status Ambulates [facility] Work Phone: 12-13-2021 Functional status Patient Activity Chair [facility] Work Phone: 12-13-2021 Functional status With Assist of 1 [facility] Work Phone: Mental Status Date Assessment Result Facility 02-19-2025 Cognitive function Touch/Shaking [facility] Work Phone: 02-14-2025 Cognitive function Drowsy;Disori ented;Responds to vocal stimuli [facility] Work Phone: 04-23-2023 Cognitive function Appropriate;Cooperativ [facility] Work Phone: 04-22-2023 Cognitive function Arousable To Voice/Nam e [facility] Work Phone: 02-15-2022 Cognitive function Level Of Cons ciousness Awake;Alert;Appropriate;Follow s Commands [facility] Work Phone: 12-28-2021 Cognitive function Voice/Name [facility] Work Phone: 12-27-2021 Cognitive function Appropriate;C ooperative;Restle ss;Guarded [facility] Work Phone: 12-26-2021 Cognitive function Voice/Name [facility] Work Phone: 12-24-2021 Cognitive function Calm;Relaxed [facility] Work Phone: 12-13-2021 Cognitive function Patient Orientation Pe rson [facility] Work Phone: 12-13-2021 Cognitive function Voice/Name [facility] Work Phone: 12-12-2021 Cognitive function Fatigued [facility] Work Phone: Clinical Notes 02-15-2022 to 02-19-2025 Note Date & Type Note Facility 02-19-2025 Note [facility] 02-18-2025 Progress note Note Date/Time February 18, 2025 3:08pm [facility] Medical Records Department [address] [place] [address] Progress Note 02/18/25 1500 MR#: [id number] Acct: [id number] Name: SAPNA BULLARD Rep #:[id number] : 1940 85 From: Felicia Paniagua MD PCP: Dr. Genevieve Wu MD Status:A DM IN Location: MS3 [id number] Subjective Subjective Patient seen and examined with her nurse by her bedside. She had a sitter by her. She is alert but acts very paranoid. She had no active complaints. She denied any fever or chills, palpitations, nausea or vomiting. She was not very cooperative with answering questions. Review of systems otherwise negative. Objective Data Objective Data Vital Signs: Vital Signs Temp Pulse Resp BP Pulse Ox O2 Del Method 97.9 F 67 16 113/71 98 Room Air 02/18/25 10:19 02/18/25 10:19 02/18/25 10:19 02/18/25 10:19 02/18/25 10:02/18/25 10:20 Oxygen Delivery Method Room Air Weight: 121 lb 7.948 oz Body Mass Index (BMI) 20.2 Intake & Output: Intake and Output for Last 24 Hours 02/16/25 02/17/25 02/18/25 23:59 23:59 23:59 Intake Total 1305 / 1305 500 / 500 Balance 1305 / 1305 500 / 500 Lab / Micro Data 02/18/25 11:22 02/18/25 11:22 Labs: Laboratory Results - last 24 hr 02/17/25 15:06: WBC 7.4, RBC 3.99 L, Hgb 11.3 L, Hct 35.4 L, MCV 88.7, MCH 28.3,MCHC 31.9 L, RDW Std Deviation 52.5 H, RDW Coeff of Tiffanie 15.9 H, Plt Count 316, MPV 9.1, Immature Gran % (Auto) 0.500, Neut % (Auto) 61.7, Lymph % (Auto) 21.0, [place] % (Auto) 13.3 H, Eos % (Auto) 3.1, Baso % (Auto) 0.4, Absolute Neuts (auto)4.6, Absolute Lymphs (auto) 1.55, Nucleated RBC % 0, Sodium 141, Potassium 3.7, Chloride 108, Carbon Dioxide 21.0, Anion Gap 11, BUN 16, Creatinine 0.69 L, Estim Creat Clear Calc 45.54 L, Est GFR (MDRD) Non-Af 86, BUN/Creatinine Ratio 23.8 H, Glucose 112 H, Calcium 9.1 02/18/25 11:22: WBC 7.7, RBC 4.15 L, Hgb 11.7 L, Hct 37.0, MCV 89.2, MCH 28.2, MCHC 31.6 L, RDW Std Deviation 52.6 H, RDW Coeff of Tiffanie 15.9 H, Plt Count 338, MPV 8.7, Immature Gran % (Auto) 0.700, Neut % (Auto) 71.4 H, Lymph % (Auto) 14.7L, [place] % (Auto) 10.8 H, Eos % (Auto) 2.0, Baso % (Auto) 0.4, Absolute Neuts (auto) 5.5, Absolute Lymphs (auto) 1.13, Nucleated RBC % 0, Sodium 137, Potassium 4.0, Chloride 105, Carbon Dioxide 19.1 L, Anion Gap 13, BUN 18, Creatinine 0.77, Estim Creat Clear Calc 45.54 L, Est GFR (MDRD) Non-Af 76, BUN/Creatinine Ratio 23.6 H, Glucose 141 H, Calcium 9.0 Micro: Microbiology 02/14/25 12:52 Urine, Clean Catch Legionella Antigen - Final 02/14/25 12:52 Urine, Clean Catch Streptococcus pneumoniae Antigen (M - Final 02/14/25 11:39 Mucosa - Nose SARS-CoV-2, Influenza & RSV (PCR) - Final Physical Exam Const alert and no apparent distress Constitutional Narrative: confused, intermittent agitation. appears to be paranoid Orientation / Consciousness: confused and lethargic HEENT normocephalic, head/scalp atraumatic, moist oral mucous membranes and oropharynxnormal Eyes EOMs intact bilaterally Neck supple and no JVD Lymph Lymphatic: no lymphedema noted Resp normal respiratory effort, normal air movement and clear to auscultation bilaterally Cardio regular rate, regular rhythm, S1 normal heart sound, S2 normal heart sound and no murmurs GI normal to inspection, nondistended, normoactive bowel sounds, soft to palpation,non-tender and non-distended Extremity normal capillary refill, no clubbing, cyanosis or edema and no calf tenderness General Extremity: no tenderness to palpation of joints or extremities Skin General Skin Exam: no breakdown Neuro CN's II-XII intact bilaterally and no focal motor deficits Neuro Narrative: confused, moves all extremities Motor Exam: general weakness Psych Psych Narrative: confused, paranoid Assessment & Plan Assessment/Plan (1) Community acquired pneumonia: PLAN: Plan #Acute metabolic encephalopathy likely due to behavioral disturbance in setting of dementia * had intermittent agitation during this admission and required a sitter. This is likely due to behavioral disturbance in the setting of dementia. Chest x- ray was suggestive of pneumonia * Urine for strep and Legionella negative. On IV ceftriaxone and azithromycin. * On room air. Titrate oxygen to maintain saturation above 90%. * switched antibiotics to PO levofloxacin for a 5 day course. * risperdal for dementia. Dose increased to 1mg bid. IM haldol prn added on for agitation. * #Dementia: continue supportive care.ON memantine and risperdal. Risperdal increased to 1mg bid. #Restless leg syndrome: On pramipexole #GERD: On PPI DVT prophylaxis: SCDs Disposition: * Family now wanted to go back to the assisted living so they work on getting into a memory care unit from there. Patient's needs to be sitter free for 24 hours before she can go to the memory care. Sitter therefore discontinued today. For likely discharge tomorrow as long as she does not require sitter again. Charges/Coding Visit Charges Inpatient E&M: 91023 Subs Hosp L2 02/18/25 1508 <Electronically signed by Felicia Paniagua MD> Felicia Paniagua MD Cosigner Signature (if applicable): CC: ~ Signed [facility] Work Phone: 1(109) 885-318209-05-2025 Progress note Author Felicia [facility] Note Date/Time February 17, 2025 4:00pm [facility] Medical Records Department [address] [place] [address] Progress Note 02/17/25 1048 MR#: [id number] Acct: [id number] Name: SAPNA BULLARD Rep #:[id number] : 1940 85 From: Felicia Paniagua MD PCP: Dr. Genevieve Wu MD Status:A DM IN Location: [address] Subjective Subjective Patient seen and examined with her nurse by her bedside. She was more confused this morning. SHe was also agitated over night and had to be given IM haldol. Unable to do comprehensive review of systems due to her confusion. She has remained hemodynamically stable. Objective Data Objective Data Vital Signs: Vital Signs Temp Pulse Resp BP Pulse Ox O2 Del Method 97.8 F 70 17 142/81 H 99 Room Air 02/17/25 07:40 02/17/25 07:40 02/17/25 07:40 02/17/25 07:40 02/17/25 07:40 02/17/25 07:40 Oxygen Delivery Method Room Air Weight: 121 lb 7.948 oz Body Mass Index (BMI) 20.2 Intake & Output: Intake and Output for Last 24 Hours 02/15/25 02/16/25 02/17/25 23:59 23:59 23:59 Intake Total 1025 / 1025 1305 / 1305 Balance 1025 / 1025 1305 / 1305 Lab / Micro Data 02/16/25 05:25 02/16/25 05:25 Micro: Microbiology 02/14/25 12:52 Urine, Clean Catch Legionella Antigen - Final 02/14/25 12:52 Urine, Clean Catch Streptococcus pneumoniae Antigen (M - Final 02/14/25 11:39 Mucosa - Nose SARS-CoV-2, Influenza & RSV (PCR) - Final Physical Exam Const alert Constitutional Narrative: confused, intermittent agitation. Orientation / Consciousness: confused HEENT normocephalic, head/scalp atraumatic, moist oral mucous membranes and oropharynxnormal Eyes EOMs intact bilaterally Neck supple and no JVD Lymph Lymphatic: no lymphedema noted Resp normal respiratory effort, normal air movement and clear to auscultation bilaterally Cardio regular rate, regular rhythm, S1 normal heart sound, S2 normal heart sound and no murmurs GI normal to inspection, nondistended, normoactive bowel sounds and soft to palpation Extremity normal capillary refill, no clubbing, cyanosis or edema and no calf tenderness General Extremity: no tenderness to palpation of joints or extremities Skin General Skin Exam: no breakdown Neuro CN's II-XII intact bilaterally and no focal motor deficits Neuro Narrative: confused, moves all extremities Motor Exam: general weakness Psych thought process normal, cooperative and affect normal Appearance: appropriate Assessment & Plan Assessment/Plan (1) Community acquired pneumonia: PLAN: Plan #Acute metabolic encephalopathy * had intermittent agitation again overnight. This is likely due to behavioral disturbance in the setting of dementia. Chest x-ray was suggestive of pneumonia * Urine for strep and Legionella negative. On IV ceftriaxone and azithromycin. * On room air. Titrate oxygen to maintain saturation above 90%. * Will switch antibiotics to PO levofloxacin for a 5 day course. * o risperdal for dementia. Dose increased to 1mg bid. IM haldol prn added on for agitation. * #Dementia: continue supportive care.ON memantine and risperdal. Risperdal increased to 1mg bid. #Restless leg syndrome: On pramipexole #GERD: On PPI DVT prophylaxis: SCDs Disposition: * cannot go back to Assisted Living in her current state. * Per case management, her son is now agreeable to memory care placement. * Case management on board to help facilitate this. Charges/Coding Visit Charges Inpatient E&M: 00387 Subs Hosp L2 02/17/25 1600 <Electronically signed by Felicia Paniagua MD> Felicia Paniagua MD Cosigner Signature (if applicable): CC: ~ Signed [facility] Work Phone: 1(368) 601-720709-05-2025 Progress note Author Karon Nunes [facility] Note Date/Time February 17, 2025 6:39am [facility] Medical Records Department [address] [place] [address] Progress Note - Hospitalist 02/17/25 0303 MR#: [id number] Acct: [id number] Name: SAPNA BULLARD Rep #:[id number] : 1940 85 From: Karon Nunes MD PCP: Dr. Genevieve Wu MD Status:A DM IN Location: [place] [address] Hospitalist Note Patient with notable agitation, aggressive behavior, will trial IM haldol x 1. 02/17/25 0304 <Electronically signed by Karon Nunes MD> Cosigner Signature (if applicable): CC: ~ Signed ADDENDUM by Dr. Karon Nunes MD on 02/17/25 at 0639 Addendum Will increase patient risperidone. 02/17/25 0639<Electronically signed by Karon Nunes MD> Cosigner Signature (if applicable): cc: ~* Signed [facility] Work Phone: 1(158) 781-634509-04-2025 Progress note Author Felicia [facility] Note Date/Time February 16, 2025 5:29pm [facility] Medical Records Department [address] [place] [address] Progress Note 02/16/25 1324 MR#: [id number] Acct: [id number] Name: SAPNA BULLARD Rep #:[id number] : 1940 85 From: Felicia Paniagua MD PCP: Dr. Genevieve Wu MD Status:A DM IN Location: [place] [address] Subjective Subjective Patient seen and examined with n. She was much more alert and communicative today and had no active complaints. SHe is hard of hearing but denied being in pain, having any fever, chills, cough, chest pain, palpitations, dizziness, nausea, vomiting or any other symptoms. Review of systems is otherwise negative.She has remained hemodynamically stable. Objective Data Objective Data Vital Signs: Vital Signs Temp Pulse Resp BP Pulse Ox O2 Del Method 97.8 F 63 16 130/76 H 96 Room Air 02/16/25 07:20 02/16/25 07:20 02/16/25 07:20 02/16/25 07:20 02/16/25 07:20 02/16/25 07:20 Oxygen Delivery Method Room Air Weight: 121 lb 7.948 oz Body Mass Index (BMI) 20.2 Intake & Output: Intake and Output for Last 24 Hours 02/14/25 02/15/25 02/16/25 23:59 23:59 23:59 Intake Total 1800 / 1800 1025 / 1025 805 / 805 Output Total 0 / 0 Balance 1800 / 1800 1025 / 1025 805 / 805 Lab / Micro Data 02/16/25 05:25 02/16/25 05:25 Labs: Laboratory Results - last 24 hr 02/16/25 05:25: WBC 7.8, RBC 4.27, Hgb 12.0, Hct 38.3, MCV 89.7, MCH 28.1, MCHC 31.3 L, RDW Std Deviation 53.4 H, RDW Coeff of Tiffanie 16.4 H, Plt Count 328, MPV 8.9, Immature Gran % (Auto) 0.600, Neut % (Auto) 67.8, Lymph % (Auto) 14.9 L, [place] % (Auto) 14.1 H, Eos % (Auto) 2.3, Baso % (Auto) 0.3, Absolute Neuts (auto) 5.3, Absolute Lymphs (auto) 1.16, Nucleated RBC % 0, Sodium 139, Potassium 3.7, Chloride 104, Carbon Dioxide 22.7, Anion Gap 13, BUN 21 H, Creatinine 0.88, Estim Creat Clear Calc 41.40 L, Est GFR (MDRD) Non-Af 65, BUN/Creatinine Ratio 23.8 H, Glucose 134 H, Calcium 9.4 Micro: Microbiology 02/14/25 12:52 Urine, Clean Catch Legionella Antigen - Final 02/14/25 12:52 Urine, Clean Catch Streptococcus pneumoniae Antigen (M - Final 02/14/25 11:39 Mucosa - Nose SARS-CoV-2, Influenza & RSV (PCR) - Final Physical Exam Const alert and no apparent distress Constitutional Narrative: communicative, more alert and communicative today. HEENT normocephalic, head/scalp atraumatic, moist oral mucous membranes and oropharynxnormal Eyes EOMs intact bilaterally Neck supple and no JVD Lymph Lymphatic: no lymphedema noted Resp normal respiratory effort, normal air movement and clear to auscultation bilaterally Cardio regular rate, regular rhythm, S1 normal heart sound, S2 normal heart sound and no murmurs GI normal to inspection, nondistended, normoactive bowel sounds, soft to palpation,non-tender and non-distended Extremity normal capillary refill, no clubbing, cyanosis or edema and no calf tenderness General Extremity: no tenderness to palpation of joints or extremities Skin General Skin Exam: no breakdown Neuro CN's II-XII intact bilaterally and no focal motor deficits Motor Exam: general weakness Psych thought process normal, cooperative and affect normal Appearance: appropriate Assessment & Plan Assessment/Plan (1) Community acquired pneumonia: PLAN: Plan #Acute metabolic encephalopathy * Etiology is unclear. Now more alert and communicative. Chest x-ray was suggestive of pneumonia * Urine for strep and Legionella negative. On IV ceftriaxone and azithromycin. * On room air. Titrate oxygen to maintain saturation above 90%. * #Dementia: continue supportive care.ON memantine and risperdal. #Restless leg syndrome: On pramipexole #GERD: On PPI DVT prophylaxis: SCDs Disposition: PT/OT evaluated her and does not think she needs SNF, and she is okto go back to Assisted Living. For likely DC tomorrow Charges/Coding Visit Charges Inpatient E&M: 31108 Subs Hosp L2 02/16/259 <Electronically signed by Felicia Paniagua MD> Felicia Paniagua MD Cosigner Signature (if applicable): CC: ~ Signed [facility] Work Phone: 1(870) 462-478009-03-2025 Progress note Author Felicia [facility] Note Date/Time February 15, 2025 6:32pm [facility] Medical Records Department [address] [place] [address] Progress Note 02/15/25 1730 MR#: [id number] Acct: [id number] Name: SAPNA BULLARD Rep #:[id number] : 1940 85 From: Felicia Paniagua MD PCP: Dr. Genevieve Wu MD Status:A DM IN Location: MS3 [id number] Subjective Subjective Patient seen and examined. She was lethargic and not really answering questions. Unable to do review of the systems. I saw her with her nurse by dennis. Review of symptoms otherwise negative. She has remained hemodynamically stable. Objective Data Objective Data Vital Signs: Vital Signs Temp Pulse Resp BP Pulse Ox O2 Del Method 97.7 F L 74 16 113/49 L 94 Room Air 02/15/25 10:07 02/15/25 10:07 02/15/25 10:07 02/15/25 10:02/15/25 10:07 02/15/25 10:46 Oxygen Delivery Method Room Air Weight: 121 lb 7.948 oz Body Mass Index (BMI) 20.2 Intake & Output: Intake and Output for Last 24 Hours 02/13/25 02/14/25 02/15/25 23:59 23:59 23:59 Intake Total 1800 / 1800 305 / 305 Output Total 0 / 0 Balance 1800 / 1800 305 / 305 Lab / Micro Data 02/15/25 10:27 02/15/25 10:27 Labs: Laboratory Results - last 24 hr 02/15/25 10:27: WBC 7.8, RBC 4.08 L, Hgb 11.5 L, Hct 36.3 L, MCV 89.0, MCH 28.2,MCHC 31.7 L, RDW Std Deviation 53.1 H, RDW Coeff of Tiffanie 16.4 H, Plt Count 279, MPV 8.6, Immature Gran % (Auto) 0.500, Neut % (Auto) 63.9, Lymph % (Auto) 16.8 L, [place] % (Auto) 16.6 H, Eos % (Auto) 1.8, Baso % (Auto) 0.4, Absolute Neuts (auto) 5.0, Absolute Lymphs (auto) 1.30, Nucleated RBC % 0, Sodium 137, Potassium 3.6, Chloride 103, Carbon Dioxide 21.1, Anion Gap 13, BUN 17, Creatinine 0.94, Estim Creat Clear Calc 38.76 L, Est GFR (MDRD) Non-Af 60, BUN/Creatinine Ratio 17.5, Glucose 82, Calcium 8.9 Micro: Microbiology 02/14/25 12:52 Urine, Clean Catch Legionella Antigen - Final 02/14/25 12:52 Urine, Clean Catch Streptococcus pneumoniae Antigen (M - Final 02/14/25 11:39 Mucosa - Nose SARS-CoV-2, Influenza & RSV (PCR) - Final Physical Exam Const Orientation / Consciousness: confused and lethargic HEENT normocephalic, head/scalp atraumatic, moist oral mucous membranes and oropharynxnormal Eyes EOMs intact bilaterally Neck supple and no JVD Lymph Lymphatic: no lymphedema noted Resp normal respiratory effort, normal air movement and clear to auscultation bilaterally Cardio regular rate, regular rhythm, S1 normal heart sound, S2 normal heart sound and no murmurs GI normal to inspection, nondistended, normoactive bowel sounds, soft to palpation,non-tender and non-distended Extremity normal capillary refill, no clubbing, cyanosis or edema and no calf tenderness General Extremity: no tenderness to palpation of joints or extremities Skin General Skin Exam: no breakdown Neuro Neuro Narrative: confused, moves all extremities, lethargic Motor Exam: general weakness Assessment & Plan Assessment/Plan (1) Community acquired pneumonia: PLAN: Plan #Acute metabolic encephalopathy * Etiology is unclear. Patient still feels quite weak and was lethargic. Chest x-ray was suggestive of pneumonia * Urine for strep and Legionella negative. On IV ceftriaxone and azithromycin. * On room air. Titrate oxygen to maintain saturation above 90%. * #Dementia: continue supportive care.ON memantine and risperdal. #Restless leg syndrome: On pramipexole #GERD: On PPI DVT prophylaxis: SCDs Charges/Coding Visit Charges Inpatient E&M: 22741 Subs Hosp L2 02/15/25 1832 <Electronically signed by Felicia Paniagua MD> Felicia Paniagua MD Cosigner Signature (if applicable): CC: ~ Signed [facility] Work Phone: 1(342) 338-985409-03-2025 Progress note Author Farrah Leone [facility] Note Date/Time February 14, 2025 10:08pm [facility] Medical Records Department [address] [place] [address] Progress Note 02/14/251 MR#: [id number] Acct: [id number] Name: SAPNA BULLARD Rep #:[id number] : 1940 85 From: Farrah Molina P-C PCP: Dr. Genevieve Wu MD Status:A DM IN Location: MS3 [id number] Progress Note Notified by nursing that pt pulled out her IV access. She is yelling out and is confused and suspicious of staff trying to medicate her. Per family, she has needed medication for behaviors on previous admissions. Advised nursing to crushRisperdal and Tramadol and to administer in ice cream or pudding. If this is unsuccessful, order placed for haloperidol 2mg IM x1. 02/14/252207 <Electronically signed by Farrah Leone [employer]NALYST-C> Farrah PENNINGTONC Cosigner Signature (if applicable): CC: ~ Signed [facility] Work Phone: 1(292) 597-172109-02-2025 History and physical note Author Liudmila Morin [facility] Note Date/Time February 14, 2025 7:35pm [facility] Medical Records Department [address] [place] [address] H&P Exam - Hospitalist 02/14/25 1511 MR#: [id number] Acct: [id number] Name: SAPNA BULLARD Rep #:[id number] : 1940 85 From: Liudimla Morin MD PCP: Dr. Genevieve Wu MD Status:A DM IN Location: MA3 [id number] HPI - General General Date of Admission: 02/14/25 Date of Service: 02/14/25 Chief Complaint: Altered mental status, weakness HPI Narrative SAPNA BULLARD, is a 85-year-old female history of GERD, dementia, essential tremor,restless leg syndrome who presented to [facility] ED 02/14/2025 from [facility] for confusion, weakness, stool and urinary incontinence. Patient poor historian so history per EMS report and son. Reportedly she was at her baseline yesterday when she went for an outing however since that eveningshe had increasing weakness and subsequently increased confusion with urinary and stool incontinence. Does have some chronic waxing waning of orientation but currently worse than baseline. In the ED temp 98.8, heart rate 83, blood pressure 134/85, respiratory rate 22 pulse ox 98% on room air. CBC with white count of 10, hemoglobin of 11.5, CMP with a BUN of 18 and a creatinine of 0.94, alk phos slightly elevated at 150, lipase normal, troponin 35, chest x-ray showed lingular atelectasis or pneumonia and findings suggestive of COPD. COVID/flu/RSV negative. UA not suggestive of infection. Patient evaluated bedside, she is confused and unable to answer any questions meaningfully, son reports yesterday she was in her usual health but today she is weak and more confused, does note that she has had increased cough on top of her chronic coughbut has not been able to get much up. Unable to obtain any further history [facility] Medical History (Updated 02/14/25 @ 15:[address] Liudmila Morin MD) Acid reflux Anemia Anxiety Chronic low back pain Chronic pain Cognitive decline Dementia Dementia Essential tremor Former smoker Fracture of left humerus GERD (gastroesophageal reflux disease) History of ovarian cyst History of wrist fracture Hyperlipemia Hypertension Left bundle branch block Neuropathy Osteoporosis Restless leg syndrome Wears hearing aid in both ears Home Medications ?Medication ?Instructions ?Recorded ?Last Taken ?Type sennosides 8.6 mg-docusate sodium 2 tab PO BID PRN PRN Constipation 04/23/23 Unknown Rx 50 mg tablet (Stool #0 tabs Softener-Stimulant Laxative) donepezil 10 mg tablet 10 mg PO QHS #30 tabs Unknown Rx memantine 10 mg tablet 10 mg PO BID #60 tabs Unknown Rx acetaminophen 325 mg tablet 650 mg PO Q4H PRN PRN Feve r, pain 07/19/24 Unknown History acetaminophen 500 mg tablet 1,000 mg PO Q8H PRN Unknown History calcium carbonate 600 mg PO BID 07/19/24 Unkno wn History cholecalciferol (vitamin D3) 25 50 mcg PO DAILY Unknown History mcg (1,000 unit) tablet (Vitamin D3) ipratropium bromide 21 mcg (0.03 2 spray intranasal QD AY 07/19/24 Unknown History %) nasal spray nut tx, lact-reduced, iron 0.09 120 ml PO TID 07/19/24 Unknown History gram-2.25 kcal/mL oral liquid (Boost [facility]) propranolol 20 mg tablet 20 mg PO .COMPLEX 07/19/24 U nknown History alendronate 70 mg tablet mg PO 10/05/24 Unknown Histo ry pramipexole 0.5 mg tablet 0.5 mg PO BID 10/05/24 Unkno wn History tramadol 50 mg tablet 50 mg PO QDAY PRN pain #20 t abs 10/31/24 Unknown Rx alendronate 70 mg tablet (Fosamax) 70 mg PO QWEEK 11/14 11/06 Unknown History cholecalciferol (vitamin D3) 50 50 mcg PO QDAY 5 Unknown History mcg (2,000 unit) capsule diclofenac sodium 1 % topical gel 4 g topical ONCE Unknown History (Voltaren Arthritis Pain) lidocaine 4 % topical patch 1 patch topical QDAY PRN 0 12/07/24 Unknown History (Aspercreme (lidocaine)) methyl salicylate 15 %-menthol 10 1 applic topical BID PRN 12/07/24 Unknown History % topical cream (Muscle Rub) tramadol 50 mg tablet 50 mg PO BID #60 tabs Unknown Rx Allergy/AdvReac Type Severity Reaction Status Date / Time No Known Allergies Allergy Verified 12/07/24 09:25 Family History Grandmother Colon cancer Father Colon [...] details: PT frequency: 1-2 times per week ehrrera/zoroastrian: [facility] seatbelt use: always ROS ROS Narrative Unable to obtain ROS secondary to mental status Vital Signs Vital Signs Vital Signs: 02/14/25 09:36 02/14/25 09:45 02/14/25 11:11 Temperature 98.8 F 98.8 F Temperature Source Axillary Axillary Pulse Rate 83 76 Respiratory Rate 22 H 18 Respiratory Effort Short of Breath Respiratory Pattern Tachypnea Blood Pressure 134/85 H 135/68 H Blood Pressure Mean 101 90 Pulse Ox 98 97 Oxygen Delivery Method Room Air Room Air 02/14/25 13:00 02/14/25 14:00 02/14/25 14:13 Temperature 98 F 97.9 F 97.8 F Temperature Source Temporal Temporal Pulse Rate 63 62 72 Respiratory Rate 18 18 18 Respiratory Effort Respiratory Pattern Blood Pressure 125/94 H 128/58 H 128/58 H Blood Pressure Mean 104 81 81 Pulse Ox 96 96 96 Oxygen Delivery Method Room Air Room Air Weight Weight: 58.2 kg Body Mass Index (BMI) 21.3 Physical Exam Narrative General: Patient confused and agitated HEENT: Atraumatic, normocephalic Eyes: Anicteric, normal conjunctiva, extraocular movements grossly intact Neck: Supple Respiratory: Slightly tachypneic, would not take a deep breath for auscultation Cardiovascular: Regular rate and rhythm GI: Soft, nontender, nondistended Extremities: No edema Musculoskeletal: Moving all extremities Neuro: No overt focal neurological deficits though patient not able to participate in meaningful neurologic exam Skin: No rashes appreciated Psych: Uncooperative, agitated Results Lab / Micro Data 02/14/25 11:04 02/14/25 11:04 Labs: Laboratory Results - last 24 hr 02/14/25 11:04: WBC 10.0, RBC 4.04 L, Hgb 11.5 L, Hct 35.8 L, MCV 88.6, MCH 28.5, MCHC 32.1, RDW Std Deviation 52.9 H, RDW Coeff of Tiffanie 16.3 H, Plt Count 328, MPV 8.5, Immature Gran % (Auto) 0.700, Neut % (Auto) 74.1 H, Lymph % (Auto)11.8 L, [place] % (Auto) 12.2 H, Eos % (Auto) 0.8, Baso % (Auto) 0.4, Absolute Neuts (auto) 7.4, Absolute Lymphs (auto) 1.18, Nucleated RBC % 0, PT 12.7, INR 0.9, APTT 29.6, Sodium 135, Potassium 3.7, Chloride 100, Carbon Dioxide 23.7, Anion Gap 12, BUN 18, Creatinine 0.94, Estim Creat Clear Calc 40.09 L, Est GFR (MDRD) Non-Af 60, BUN/Creatinine Ratio 19.4, Glucose 92, Calcium 8.9, Total Bilirubin 0.56, AST 25, ALT 14, Alkaline Phosphatase 150 H, Troponin T High Sens35 H, Total Protein 6.9, Albumin 3.7, Globulin 3.1, Albumin/Globulin Ratio 1.2, Lipase 40 02/14/25 11:06: Lactic Acid 1.3 02/14/25 12:52: Urine Color Yellow, Urine Clarity Clear, Urine pH 6.0, Ur Specific [place] 1.015, Urine Protein Negative, Urine Glucose (UA) Normal, UrineKetones 5 H, Urine Occult Blood Negative, Urine Nitrite Negative, Urine Bilirubin Negative, Urine Urobilinogen Normal, Ur Leukocyte Esterase 25 H, UrineRBC 0 SEEN, Urine WBC 0-5 SEEN, Ur Squamous Epith Cells 0 SEEN, Urine Bacteria 0SEEN, Urine Mucus 0 SEEN 02/14/25 13:20: Troponin T Hi Sens 2 Hr 32 H Micro: Microbiology 02/14/25 11:39 Mucosa - Nose SARS-CoV-2, Influenza & RSV (PCR) - Final Imaging Radiology Impression Chest X-Ray 02/14/25 11:40 IMPRESSION: 1. Lingular atelectasis or pneumonia. 2. Suggestion of COPD. Reading Location: REPLACED BY [facility] Assessment & Plan Assessment/Plan (1) Community acquired pneumonia: PLAN: Plan #Community-acquired pneumonia -Imaging: Chest x-ray suggestive of pneumonia -DuoNebs and as needed albuterol -Sputum culture, COVID ordered, respiratory panel ordered -Urine antigens -Mucinex, I/S -Rocephin and azithromycin # Acute metabolic encephalopathy - Patient more weak and confused, suspect this is secondary to underlying pneumonia - Family reports she is already more awake with some fluids and antibiotics however still confused and agitated - Did schedule melatonin and Risperdal twice daily to help with patient's agitation, I do not suspect she will need this on discharge once underlying medical etiology improved #Dementia -Supportive care -Continue home medications # Restless leg syndrome -continue patient's home medication regimen #GERD - Does not appear patient currently on PPI - Tums as needed #DVT ppx: SCDs Liudmila Morin MD Charges/Coding Visit Charges Inpatient E&M: 20236 Init Hosp L2 02/14/25 1522 <Electronically signed by Liudmila Morin MD> Cosigner Signature (if applicable): CC: Dr. Genevieve Wu MD; Dr. Liudmila Morin MD~ Signed ADDENDUM by Dr. Liudmila Morin MD on 02/14/25 at 193 Addendum Given patient is getting azithromycin we will hold off on continue donepezil as it is QTc prolonging potential, short-term holding of donepezil likely will not have a large impact 02/14/251934<Electronically signed by Liudmila Morin MD> Cosigner Signature (if applicable): cc: Dr. Genevieve Wu MD; Dr. Liudmila Morin MD ~* Signed [facility] Work Phone: 1(606) 454-818009-02-2025 Discharge summary Author Arya Gannon [facility] Note Date/Time February 14, 2025 5:46pm [facility] Medical Records Department [address] [place] [address] Emergency Department Summary 02/14/25 MR#: [id number] Acct: [id number] Name: SAPNA BULLARD Rep #:[id number] : 1940 85 From: Arya de guzman DO PCP: Dr. Genevieve Wu MD Status:A DM IN [id number] History of Present Illness Chief Complaint: Weakness Narrative Narrative: Chief complaint and HPI: 85-year-old female with past medical history of dementia, GERD, HTN, essential tremor presents from [facility] for evaluation of confusion, weakness, stool and urinary incontinence. History taken by EMS report and son in the room. Son states his mother was at her baseline yesterday in which they went on an outing. He states that the nursing facility repeated that in the evening she became weak in which she required mostly pushing in the wheelchair. They state today she appeared more confused than her baseline with urinary and stool incontinence. He states that the nursing facility did endorse a cough but son states patient has a mild cough at baseline that is chronic. Patient is alert and oriented to self only. Son states that patient's orientation waxes and wanes and that this is not abnormal for her. She denies any fever, chills, shortness of breath, chest pain, abdominal pain, nausea, vomiting, diarrhea, dysuria. Review of systems: See HPI Medications: As listed on the chart Allergies: As listed on the chart PFSH: Per chart Vital signs: As listed on the chart. Reviewed. Physical exam: Gen: A&O x1-mentation waxes and wanes at baseline per son, NAD Head: Normocephalic, atraumatic Eyes: No sclera icterus, conjunctiva clear, PERRL, EOMI ENT: Hearing aids removed -TMs clear BL, dry mucous membranes, posterior oropharynx unremarkable Neck: Trachea midline, No JVD, Full ROM, No meningismus CV: RRR, no murmurs, no peripheral edema Resp: Lungs CTA BL, no w/r/c GI: Abd soft, non-distended, non-tender, no r/r/g Musc: Moves all extremities, no deformity Skin: Warm, dry, no rash Neuro: Alert, grossly intact, sensation intact Psych: Cooperative [facility] Medical History Neuropathy Left bundle branch block Chronic pain Dementia Dementia Essential tremor Restless leg syndrome Wears hearing aid in both ears Anxiety Former smoker Hypertension Cognitive decline Chronic low back pain Fracture of left humerus History of ovarian cyst Hyperlipemia History of wrist fracture GERD (gastroesophageal reflux disease) Osteoporosis Acid reflux Anemia Home Medications ?Medication ?Instructions ?Recorded ?Last Taken ?Type sennosides 8.6 mg-docusate sodium 2 tab PO BID PRN PRN Constipation 04/23/23 Unknown Rx 50 mg tablet (Stool #0 tabs Softener-Stimulant Laxative) donepezil 10 mg tablet 10 mg PO QHS dementia #30 ta bs 01/20/24 Unknown Rx memantine 10 mg tablet 10 mg PO BID #60 tabs Unknown Rx acetaminophen 325 mg tablet 650 mg PO Q4H PRN PRN Feve r, pain 07/19/24 Unknown History acetaminophen 500 mg tablet 1,000 mg PO Q8H PRN Unknown History calcium carbonate 600 mg PO BID osteopsorosis 07/19/24 Unknown History ipratropium bromide 21 mcg (0.03 2 spray intranasal QD AY 07/19/24 Unknown History %) nasal spray propranolol 20 mg tablet 20 mg PO .COMPLEX tremors Unknown History pramipexole 0.5 mg tablet 0.5 mg PO BID 10/05/24 Unkno wn History tramadol 50 mg tablet 50 mg PO QDAY PRN pain #20 t abs 10/31/24 Unknown Rx alendronate 70 mg tablet (Fosamax) 70 mg PO QWEEK oste opsporosis 12/07/24 Unknown History cholecalciferol (vitamin D3) 50 50 mcg PO QDAY vit d d eficiency 12/07/24 Unknown History mcg (2,000 unit) capsule diclofenac sodium 1 % topical gel 4 g topical ONCE rt hip pain 12/07/24 Unknown History (Voltaren Arthritis Pain) lidocaine 4 % topical patch 1 patch topical QDAY PRN p ain 12/07/24 Unknown History (Aspercreme (lidocaine)) methyl salicylate 15 %-menthol 10 1 applic topical BID PRN muscle 12/07/24 Unkno wn History % topical cream (Muscle Rub) pain tramadol 50 mg tablet 50 mg PO BID pain #60 tabs 0 01/17/25 Unknown Rx Allergy/AdvReac Type Severity Reaction Status Date / Time No Known Allergies Allergy Verified 12/07/24 09:25 Family History Grandmother Colon cancer Father Colon [...] details: PT frequency: 1-2 times per week herrera/zoroastrian: [facility] seatbelt use: always EXAM Physical Exam Const Vital Signs: 02/14/25 09:36 02/14/25 09:45 02/14/25 11:11 Temperature 98.8 F 98.8 F Temperature Source Axillary Axillary Pulse Rate 83 76 Respiratory Rate 22 H 18 Respiratory Effort Short of Breath Respiratory Pattern Tachypnea Blood Pressure 134/85 H 135/68 H Blood Pressure Mean 101 90 Pulse Ox 98 97 Oxygen Delivery Method Room Air Room Air 02/14/25 13:00 02/14/25 14:00 02/14/25 14:13 Temperature 98 F 97.9 F 97.8 F Temperature Source Temporal Temporal Pulse Rate 63 62 72 Respiratory Rate 18 18 18 Respiratory Effort Respiratory Pattern Blood Pressure 125/94 H 128/58 H 128/58 H Blood Pressure Mean 104 81 81 Pulse Ox 96 96 96 Oxygen Delivery Method Room Air Room Air 02/14/25 15:00 Temperature 98.9 F Temperature Source Oral Pulse Rate 89 Respiratory Rate 16 Respiratory Effort Respiratory Pattern Blood Pressure 118/78 Blood Pressure Mean 91 Pulse Ox 98 Oxygen Delivery Method Room Air MDM MDM MDM Narrative Medical decision making narrative: 85-year-old female with past medical history of dementia, GERD, HTN, essential tremor presents from [facility] for evaluation of confusion, weakness, stool and urinary incontinence. History taken by EMS report and son in the room. Son states his mother was at her baseline yesterday in which they went on an outing. He states that the nursing facility repeated that in the evening she became weak in which she required mostly pushing in the wheelchair. Son states that patient's orientation waxes and wanes and that this is not abnormal for her. Patient has no complaints. On presentation, patient no acutedistress. Nontoxic-appearing. Afebrile. Differential diagnosis includes but is not limited to viral illness, gastroenteritis, UTI, electrolyte abnormality, pneumonia, suspect less likely ACS. NS bolus ordered. EKG reviewed see below. CBC without leukocytosis. Patient has baseline anemia of 11.5. Coagulation panel unremarkable. CMP unremarkable except for alkaline phosphatase at 150. No transaminitis or hyperbilirubinemia. Lactic acid unremarkable. Troponin 35 and 32. Patient not endorsing chest pain. No acute ischemic changes on EKG. Lipase unremarkable. UA negative for UTI but positive for mild ketones. Chest x-ray with chronic lung changes. This is similar to chest x-ray in May although slightly worse on the left. Could be possible pneumonia. No cardiomegaly, effusion, pneumothorax. Radiology in agreement. COVID, flu, RSV negative. Rocephin and azithromycin were ordered for community-acquired pneumonia. At this point in time I suspect patient has metabolic encephalopathy likely secondary to pneumonia. Patient will warrant admission. Family confirmed understand the plan. I spoke with the hospice service who accepted admission. EKG: Interpreted by me/EM physician: EKG shows normal sinus rhythm. No left bundle branch block. Heart rate 60. No acute ischemic change Impression: 1. Community-acquired pneumonia 2. Metabolic encephalopathy secondary to #1 3. Weakness secondary to #1 4. History of dementia Lab Data Labs: Laboratory Results - last 24 hr 02/14/25 02/14/25 02/14/25 11:04 11:06 12:52 WBC 10.0 RBC 4.04 L Hgb 11.5 L Hct 35.8 L MCV 88.6 MCH 28.5 MCHC 32.1 RDW Std Deviation 52.9 H RDW Coeff of Tiffanie 16.3 H Plt Count 328 MPV 8.5 Immature Gran % (Auto) 0.700 Neut % (Auto) 74.1 H Lymph % (Auto) 11.8 L [place] % (Auto) 12.2 H Eos % (Auto) 0.8 Baso % (Auto) 0.4 Absolute Neuts (auto) 7.4 Absolute Lymphs (auto) 1.18 Nucleated RBC % 0 PT 12.7 INR 0.9 APTT 29.6 Sodium 135 Potassium 3.7 Chloride 100 Carbon Dioxide 23.7 Anion Gap 12 BUN 18 Creatinine 0.94 Estim Creat Clear Calc 40.09 L Est GFR (MDRD) Non-Af 60 BUN/Creatinine Ratio 19.4 Glucose 92 Lactic Acid 1.3 Calcium 8.9 Total Bilirubin 0.56 AST 25 ALT 14 Alkaline Phosphatase 150 H Troponin T High Sens 35 H Troponin T Hi Sens 2 Hr Total Protein 6.9 Albumin 3.7 Globulin 3.1 Albumin/Globulin Ratio 1.2 Lipase 40 Urine Color Yellow Urine Clarity Clear Urine pH 6.0 Ur Specific [place] 1.015 Urine Protein Negative Urine Glucose (UA) Normal Urine Ketones 5 H Urine Occult Blood Negative Urine Nitrite Negative Urine Bilirubin Negative Urine Urobilinogen Normal Ur Leukocyte Esterase 25 H Urine RBC 0 SEEN Urine WBC 0-5 SEEN Ur Squamous Epith Cells 0 SEEN Urine Bacteria 0 SEEN Urine Mucus 0 SEEN 02/14/25 13:20 WBC RBC Hgb Hct MCV MCH MCHC RDW Std Deviation RDW Coeff of Tiffanie Plt Count MPV Immature Gran % (Auto) Neut % (Auto) Lymph % (Auto) [place] % (Auto) Eos % (Auto) Baso % (Auto) Absolute Neuts (auto) Absolute Lymphs (auto) Nucleated RBC % PT INR APTT Sodium Potassium Chloride Carbon Dioxide Anion Gap BUN Creatinine Estim Creat Clear Calc Est GFR (MDRD) Non-Af BUN/Creatinine Ratio Glucose Lactic Acid Calcium Total Bilirubin AST ALT Alkaline Phosphatase Troponin T High Sens Troponin T Hi Sens 2 Hr 32 H Total Protein Albumin Globulin Albumin/Globulin Ratio Lipase Urine Color Urine Clarity Urine pH Ur Specific [place] Urine Protein Urine Glucose (UA) Urine Ketones Urine Occult Blood Urine Nitrite Urine Bilirubin Urine Urobilinogen Ur Leukocyte Esterase Urine RBC Urine WBC Ur Squamous Epith Cells Urine Bacteria Urine Mucus Radiography Diagnostic Testing: Clinical Impression(s) from Imaging Studies Chest X-Ray 02/14/25 11:40 IMPRESSION: 1. Lingular atelectasis or pneumonia. 2. Suggestion of COPD. Reading Location: REPLACED BY [facility] Discharge Plan Disposition Disposition: [facility] Discharge Date/Time: 02/14/25 15:50 What to do if you have Problems For any increased pain, shortness of breath, bleeding, nausea or vomiting, chestpain, or any unexpected problems, contact your Primary Care Provider. Call [facility] ([phone]) or report to the closest Emergency Room. Call 911 if necessary. 02/14/25 1746 <Electronically signed by Arya Gannon DO> Cosigner Signature (if applicable): CC: Dr. Genevieve Wu MD ~ Signed [facility] Work Phone: 1(995) 726-401609-02-2025 Radiology [facility]* Diagnosis Onset Date Resolution Status Admit Date Dementia chronic November 29 10:05am Essential tremor chronic November 10:05am Restless leg syndrome chronic Madhu 2024 10:05am Vitamin D deficiency resolved November 29, 2024 10:05am Abnormal chest CT chronic December 072024 9:10am Community acquired pneumonia acute February 14, 2025 3:11pm [facility] Work Phone: 1(313) 803-733506-17-2025 Radiology Diagnostic study note [facility] Imaging Services [address] [place] [address] Chest without Contrast MR#: [id number] Acct: [id number] Name: SAPNA BULLARD Rep #: [id number] : 1940 F 84 From: Thaddeus Chaparro MD PCP: Dr. Genevieve Wu MD Status: R EG CLI Study:Chest without Contrast Date of Exam: 11/28/24 Exam# [id number] Ordering Dr: Valdez DO PROCEDURE: CHEST WITHOUT CONTRAST 11/28/2024 REASON FOR EXAM: ABNORMAL CHEST CT TECHNIQUE: Chest CT without contrast. Coronal and Sagittal reconstruction series were provided. One or more dose reduction techniques were used (e.g., Automated exposure control, adjustment of the mA and/or kV according to patient size, use of iterative reconstruction technique RADIATION DOSE SUMMARY: CTDlvol: 6.43 mGy DLP: 234.49 mGycm COMPARISON: CT chest with IV contrast, 08/03/2024. FINDINGS: Hardware: None. Lymph nodes: There are multiple, stable, reactive mediastinal and bilateral hilar lymph nodes. Heart and Vasculature: The heart is enlarged. There is no pericardial effusion. There is calcific vascular disease of the thoracic aorta and coronary arteries. There is aneurysmal dilatation of the midascending thoracic aorta measuring 4.2 cm in diameter. The mid descending thoracic aorta measures 2.4 cm in diameter. Thereis heavily calcified plaque in the aortic arch and the proximal and mid descending thoracic aorta. Lungs and Airways: There is stable pleural-parenchymal scarring in both lung apices. There is basilar predominant chronic interstitial lung disease with subpleural reticulation and there are is a thick walled cavity with an air-fluid level in the superior segment of the lower lobe of the left lung, again noted. There is an emergent cavitary lesion in the superior segment of the lower lobe of the right lung. There are numerous ill-defined soft tissuedensity nodules in the mid and lower lung zones, bilaterally. There is bronchiectasis with peribronchial consolidation in the basilar segments of the lower lobe of the left lung. Pleura: There are no pleural effusions. Upper Abdomen: The proximal abdominal aorta is heavily calcified. There is calcified plaque of the origin of the SMA and both renal arteries. Chest wall: The soft tissues of the chest wall appear unremarkable. There is moderate to severe multilevel degenerative disc disease of the thoracic and upper lumbar spine. There is moderate levoscoliosisof the thoracolumbarspine. CT/Chest without Contrast IMPRESSION: 1. Chronic interstitial lung disease with a pattern most consistent with sarcoidosis, autoimmune disease, and connective tissue disease, among others. 2. Significant calcific vascular disease of the thoracoabdominal aorta and coronary arteries. 3. Aneurysmal dilatation of the ascending thoracic aorta. 4. Other findings as noted. Reading Location: [id number] CC: Dr. Willian Palm DO; Dr. 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: Signed [facility] Work Phone: 1(480) 749-295304-23-2025 Evaluation note* Diagnosis Onset Date Resolution Status Admit Date Left bundle branch block acute October 05, 2024 9:00am Abnormal chest CT chronic September 142024 9:00am Dementia chronic October 05 9:00am Hyperlipemia chronic October 05, 2024 9:00am Dementia chronic November 29 10:05am Essential tremor chronic November 10:05am Restless leg syndrome chronic Nov 10:05am Vitamin D deficiency resolved November 29, 2024 10:05am Abnormal chest CT chronic December 072024 9:10am [facility] Work Phone: 1(572) 300-782603-27-2025 Evaluation note* Diagnosis Onset Date Resolution Status Admit Date Abnormal chest CT chronic August 142024 11:20am Left bundle branch block acute October 05, 2024 9:00am Abnormal chest CT chronic September 142024 9:00am Dementia chronic October 05 9:00am Hyperlipemia chronic October 05, 2024 9:00am [facility] Work Phone: 1(681) 316-243703-27-2025 Evaluation note* Diagnosis Onset Date Resolution Status Admit Date Abnormal chest CT chronic August 142024 11:20am Left bundle branch block acute October 05, 2024 9:00am Abnormal chest CT chronic September 142024 9:00am Dementia chronic October 05 9:00am Hyperlipemia chronic October 05, 2024 9:00am Dementia chronic November 29 10:05am Essential tremor chronic November 10:05am Restless leg syndrome chronic Nov 10:05am Vitamin D deficiency resolved November 29, 2024 10:05am [facility] Work Phone: 1(138) 518-675103-27-2025 Evaluation note* Diagnosis Onset Date Resolution Status Admit Date Abnormal chest CT chronic August 142024 11:20am Left bundle branch block acute October 05, 2024 9:00am Abnormal chest CT chronic September 142024 9:00am Dementia chronic October 05 9:00am Hyperlipemia chronic October 05, 2024 9:00am Dementia chronic November 29 10:05am Essential tremor chronic November 10:05am Restless leg syndrome chronic Nov 10:05am Vitamin D deficiency resolved November 29, 2024 10:05am Abnormal chest CT chronic December 072024 9:10am [facility] Work Phone: [phone]) [phone] Evaluation note* Diagnosis Onset Date Resolution Status Admit Date Anxiety chronic July 19, 2024 9:51am Dementia chronic July 19, 2024 9:51am Insomnia chronic July 19, 2024 9:51am Restless leg syndrome chronic Jul 9:51am Vitamin D deficiency chronic 2024 9:51am Essential tremor inactive July 19, 2024 9:51am Abnormal chest CT chronic August 142024 11:20am Left bundle branch block acute October 05, 2024 9:00am Abnormal chest CT chronic September 142024 9:00am Dementia chronic October 05 9:00am Hyperlipemia chronic October 05, 2024 9:00am [facility] Work Phone: 1(350) 575-948712-31-2024 [facility]11-08-2023 Progress note Author John Johnston [facility] April 22, 2023 4:40pm Note Date/Time April 22, 2023 4 :41pm [facility] Medical Records Department [address] [place] [address] Progress Note - Hospitalist 04/22/23 1637 MR#: [id number] Acct: [id number] Name: SAPNA BULLARD Rep #:[id number] : 1940 83 From: John Johnston DO PCP: Dr. Nicci Lemus MD Status:ADM I N Location: [place] [address] Reason for Visit Reason for Visit: Diagnoses [...] 04/22/23 23:59 23:59 23:59 Intake Total 1909 / 1909 300 / 300 450 / 450 Output Total 0 / 1900 800 / 800 Balance 1909 -1600 / [...] 35 minutes Charges/Coding Visit Charges Inpatient E&M: 58473 Subs Hosp L2 04/22/23 1640 <Electronically signed by John Johnston DO> Cosigner Signature (if applicable): CC: ~ Signed [facility] Work Phone: 1(922) 504-313011-07-2023 Progress note Author John Moowatonna [facility] April 21, 2023 5:05pm Note Date/Time April 21, 2023 4 :52pm [facility] Medical Records Department [address] [place] [address] Progress Note - Hospitalist 04/21/23 1649 MR#: [id number] Acct: [id number] Name: SAPNA BULLARD Derw Rep #:[id number] : 1940 83 From: John Johnston DO PCP: Dr. Nicci Lemus MD Status:ADM I N Location: [place] [address] Reason for Visit Reason for Visit: Diagnoses [...] offered, patient will need placement in a long-term facility for short-term rehab services #3 acute cystitis-again patient will be transition to Keflex starting tomorrow #4 acute debility secondary to multiple medical problems including dementia, pneumonia, and cystitis-PT and OT are seeing patient, she will need short-term placement in a long-term facility #5 essential tremor-patient is on propranolol [...] 35 minutes Charges/Coding Visit Charges Inpatient E&M: 86064 Subs Hosp L2 04/21/23 1705 <Electronically signed by John Johnston DO> Cosigner Signature (if applicable): CC: ~ Signed [facility] Work Phone: 1(455) 269-867411-06-2023 Progress note Author John Johnston [facility] April 20, 2023 7:08pm Note Date/Time April 20, 2023 7 :08pm [facility] Medical Records Department [address] [place] [address] Progress Note - Hospitalist 04/20/23 1859 MR#: [id number] Acct: [id number] Name: SAPNA BULLARD Rep #:[id number] : 1940 83 From: John Johnston DO PCP: Dr. Nicci Lemus MD Status:ADM I N Location: [place] [address] Reason for Visit Reason for Visit: Diagnoses [...] Nutrition Assessment Dietitian: Malnutrition Criteria Met Start: 11/03/23 11:22 Freq: Status: Active Protocol: Document 04/17/23 [...] / Micro Data 04/20/23 06:50 04/20/23 06:50 Labs: Laboratory Results - last 24 hr 04/20/23 06:50: WBC 8.0, RBC 3.61 L, Hgb 10.0 L, Hct 31.2 L, MCV 86.4, MCH 27.7,MCHC 32.1, RDW Std Deviation 42.5, RDW Coeff of Tiffanie 13.4, Plt Count 291, MPV 9.1, Immature Gran % (Auto) 0.400, Neut % (Auto) 65.0, Lymph % (Auto) 17.3 L, [place] % (Auto) 16.0 H, Eos % (Auto) [...] offered, patient will need placement in a long-term facility for short-term rehab services #3 acute cystitis-again patient will be transition to Keflex starting tomorrow #4 acute debility secondary to multiple medical problems including dementia, pneumonia, and cystitis-PT and OT are seeing patient, she will need short-term placement in a long-term facility #5 essential tremor-patient is on propranolol Total clinical time spent by myself addressing patient's medical issues, reviewing all of her data, and collaborating with patient's care team: 35 minutes Charges/Coding Visit Charges Inpatient E&M: 21443 Subs Hosp L2 04/20/23 190 <Electronically signed by John Johnston DO> Cosigner Signature (if applicable): CC: ~ Signed [facility] Work Phone: 1(613) 910-197111-05-2023 Progress note Author Pravin Cruz [facility] April 19, 2023 8:59am Note Date/Time April 19, 2023 8 :59am [facility] Medical Records Department [address] [place] [address] Progress Note - Hospitalist 04/19/2357 MR#: [id number] Acct: [id number] Name: SAPNA BULLARD Rep #:[id number] : 1940 83 From: Pravin ty MD PCP: Dr. Nicci Lemus MD Status:ADM I N Location: [place] [address] Subjective Subjective No issues overnight, she is [...] 04/18: Urine culture Bartholomew reported. E. coli 59177?46288 E. coli, ramon sensitivity sensitivity available. Continue [...] DVT: Lovenox Charges/Coding Visit Charges Inpatient E&M: 83818 Subs Hosp L2 04/19/2359 <Electronically signed by Pravin Cruz MD> Cosigner Signature (if applicable): CC: ~ Signed [facility] Work Phone: 1(866) 604-685211-04-2023 Progress note Author Darinel Carlos [facility] April 18, 2023 2:11pm Note Date/Time April 18, 2023 1 0:00am [facility] Medical Records Department [address] [place] [address] [place] [address] Progress Note - Hospitalist 04/18/2359 MR#: [id number] Acct: [id number] Name: SAPNA BULLARD Rep #:[id number] : 1940 83 From: Darinel Morocho PCP: Dr. Nicci Lemus MD Status:ADM I N Location: [place] [address] Reason for Visit Reason for Visit: Diagnoses [...] The patient is an 83 y/o F [facility] ED on 04/16/23 with history of [...] 04/18: Urine culture Bartholomew reported. E. coli 13155?08892 E. coli, ramon sensitivity sensitivity available. Continue [...] Care Planning Charges/Coding Visit Charges Inpatient E&M: 68392 Subs Hosp L2 04/18/23 1411 <Electronically signed by Darinel Carlos MD> Cosigner Signature (if applicable): CC: ~ Signed [facility] Work Phone: 1(663) 808-235311-03-2023 Progress note Author Darinel Carlos [facility] April 17, 2023 3:54pm Note Date/Time April 17, 2023 7 :31am [facility] Medical Records Department [address] [place] [address] Progress Note - Hospitalist 04/17/2328 MR#: [id number] Acct: [id number] Name: SAPNA BULLARD Rep #:[id number] : 1940 83 From: Darinel Morocho PCP: Dr. Nicci Lemus MD Status:ADM I N Location: [place] [address] Reason for Visit Reason for Visit: Diagnoses [...] 80.3 H, Lymph % (Auto) 10.8 L, [place] % (Auto) 8.0, Eos % (Auto) 0.1, [...] Sl. Cloudy, Urine pH 7.0, Ur Specific [place] 1.010, Urine Protein 15 H, Urine Glucose [...] 73.6 H, Lymph % (Auto) 13.6 L, [place] % (Auto) 11.3 H, Eos % (Auto) [...] The patient is an 83 y/o F [facility] ED on 04/16/23 with history of [...] Q4H PRN PRN PRN Reason: Fever, pain -03/24 Last Admin: 04/17/23 08:33 Dose: 650 mg [...] 10 Mg Tablet) 10 mg PO QHS [facility] Last Admin: 04/16/23 22:31 Dose: 10 mg Guaifenesin (Guaifenesin 10 Ml Udc (200mg/10ml)) 20 ml PO Q4H PRN PRN PRN Reason: COUGH Hydralazine HCl (Hydralazine 20 Mg/Ml Vial) 10 mg IV Q4H PRN PRN; Protocol PRN Reason: SBP > 160 Sodium Chloride () 250 mls @ 15 mls/hr IV .[id number] PRN PRN Reason: Additional IVPB Infusion Sodium Chloride () 250 mls @ 15 mls/hr IV .[id number] PRN PRN Reason: Saline Flush Ceftriaxone Sodium (Rocephin) 1 gm in 50 mls @ 100 mls/hr IV Q24H SAUD Azithromycin 500 mg/ Dextrose 255 mls @ 250 mls/hr IV Q24H [facility] Melatonin (Melatonin 3 Mg Tablet) 3 mg PO QHS PRN PRN PRN Reason: INSOMNIA Memantine (Memantine Hydrochloride 10 Mg Tablet) 10 mg PO BID [facility] Last Admin: 04/17/23 08:31 Dose: 10 mg Mirtazapine (Mirtazapine 15 Mg Tablet) 7.5 mg PO QHS [facility] Last Admin: 04/16/23 22:30 Dose: 7.5 mg Nutritional Formula (Lactose Free) (Ensure Plus High Protein 120 Ml Liquid) 120ml PO 4X/DAY [facility] Last Admin: 04/17/23 13:58 Dose: 120 ml Ondansetron HCl (Ondansetron 4 Mg/2 Ml Vial) 4 mg IV Q8H PRN PRN PRN Reason: NAUSEA/VOMITING Pramipexole Dihydrochloride (Pramipexole Di-Hcl 0.5 Mg Tablet) 0.5 mg PO QHS [facility] Last Admin: 04/16/23 22:31 Dose: 0.5 mg Prochlorperazine Edisylate (Prochlorperazine 10 Mg/2 Ml Vial) 5 mg IV Q4H PRN PRN PRN Reason: Breakthrough nausea/vomiting Propranolol HCl (Propranolol 40 Mg Tablet) 40 mg PO 0600 [facility] Last Admin: 04/17/23 04:09 Dose: Not Given Propranolol HCl (Propranolol 10 Mg Tablet) 20 mg PO 1200,1700 [facility] Last Admin: 04/17/23 12:48 Dose: 20 mg Senna/Docusate Sodium (Senna/Docusate Sodium 1 Tablet) 2 tablet PO BID PRN PRN PRN Reason: Constipation Sodium Chloride (0.9% Saline Lock 10 Ml Syringe) 10 - 40 ml IV UD PRN PRN Reason: SALINE FLUSH Tramadol HCl (Tramadol 50 Mg Tablet) 50 mg PO Q8H PRN PRN PRN Reason: Pain Score 4-10 Charges/Coding Visit Charges Inpatient E&M: 59192 Subs Hosp L2 04/17/23 1554 <Electronically signed by Darinel Carlos MD> Cosigner Signature (if applicable): CC: ~ Signed [facility] Work Phone: 1(596) 935-392811-03-2023 History and physical note Author Karon Nunes [facility] April 16, 2023 10:33pm Note Date/Time April 16, 2023 7 :37pm [facility] Medical Records Department [address] [place] [address] H&P Exam - Hospitalist 04/16/23 193 MR#: [id number] Acct: [id number] Name: SAPNA BULLARD Rep #:[id number] : 1940 83 From: Karon Nunes MD PCP: Dr. Nicci Lemus MD Status:ADM I N Location: [place] [address] HPI - General General Date of Admission: 04/16/23 Date of Service: 04/16/23 Chief Complaint: Confusion, weakness, debility. HPI Narrative The patient is an 83 y/o F w/ PMHx: Essential tremor, Allergic rhinitis, GERD, Chronic normocytic anemia/Fe deficiency anemia, Anxiety and Depression, Dementiaunclear type with unclear behavioral disturbance history, Former tobacco use whopresents to the [facility] ED on 04/16/23 with history of [...] as well as azithromycin and IV Rocephin. [facility] Medical History (Updated 04/16/23 @ 22:30 by [...] details: PT frequency: 1-2 times per week herrera/zoroastrian: [facility] seatbelt use: always ROS Review of Systems [...] 80.3 H, Lymph % (Auto) 10.8 L, [place] % (Auto) 8.0, Eos % (Auto) 0.1, [...] Sl. Cloudy, Urine pH 7.0, Ur Specific [place] 1.010, Urine Protein 15 H, Urine Glucose [...] history, Former tobacco use whopresents to the [facility] ED on 04/16/23 with history of [...] 16 minutes. Charges/Coding Visit Charges Inpatient E&M: 33203 Init Hosp L3 Procedures Hospitalists Procedures: 69161 Advncd Care Plan 30 Min 04/16/232232 <Electronically signed by Karon Nunes MD> Cosigner Signature (if applicable): CC: Dr. Karon Nunes MD; Dr. Nicci Lemus MD~ Signed [facility] Work Phone: 1(947) 284-996911-02-2023 Discharge summary Author Nicholas Cohen [facility] April 16, 2023 9:08pm Note Date/Time April 16, 2023 7 :09pm [facility] Medical Records Department [address] [place] [address] Emergency Department Summary 04/16/23 MR#: [id number] Acct: [id number] Name: SAPNA BULLARD Rep #:[id number] : 1940 83 From: Nicholas Cohen DO PCP: Dr. Nicci Lemus MD Status:ADM I N Location: [place] [address]1 HPI History of Present Illness Chief Complaint: Confusion [...] or short of breath. She complainsof dysuria. [facility] Medical History Acid reflux Acute UTI Anemia [...] details: PT frequency: 1-2 times per week herrera/zoroastrian: [facility] seatbelt use: always ROS ROS ED Constitutional [...] 80.3 H Lymph % (Auto) 10.8 L [place] % (Auto) 8.0 Eos % (Auto) 0.1 [...] Sl. Cloudy Urine pH 7.0 Ur Specific [place] 1.010 Urine Protein 15 H Urine Glucose [...] your Primary Care Provider. Call [facility] ([phone]) or report to the closest Emergency Room. Call 911 if necessary. 04/16/232107 <Electronically signed by Nicholas Cohen DO> Cosigner Signature (if applicable): CC: Dr. Nicci Lemus MD ~ Signed [facility] Work Phone: 1(750) 103-407309-03-2022 Hospital Discharge instructions Additional Instructions Recommend repeat basic metabolic panel in 3 to 5 days to assess BUN and creatinine [facility] Work Phone: Consult note Author Tanya Cha [facility] April 23, 2023 1:32pm Note Date/Time April 23, 2023 1 :32pm [facility] Medical Records Department [address] [place] [address] Counseling Note - Pharmacy 04/23/23 1332 MR#: [id number] Acct: [id number] Name: SAPNA BULLARD Rep #:[id number] : 1940 83 From: Tanya Cha PCP: Dr. Nicci Lemus MD Status:DIS I N Y Location: [place] [address] Pharmacy DC Med Reconciliation Pharmacy Service has performed discharge medication reconciliation for this patient upon transfer to [place] The patient's discharge medication list was reviewed [...] PO Q4H PRN PRN Fever, pain 1- /10 #30 tabs 04/23/23 donepezil 10 mg tablet [...] Signature (if applicable): Date CC: ~ Signed [facility] Work Phone: Discharge summary Author John Johnston [facility] April 23, 2023 11:48am Note Date/Time April 23, 2023 1 1:38am [facility] Medical Records Department [address] [place] [address] Instructions for Home/Discharge Instructions 04/23/23 1138 MR#: [id number] Acct: [id number] Name: SAPNA BULLARD Rep #:[id number] : 1940 83 From: John Johnston DO [...] PO Q4H PRN PRN (Reason: Fever, pain 1-10/10) Qty: 30 0RF donepezil 10 mg Tablet [...] Up: Lalo Palm DO [Med Staff - Business Rules Developer] - Within 1 Month Nicci Lemus MD [Primary Care Provider] - Disposition Disposition (needs filled in before D/C Order can be placed): Assisted Living 04/23/23 1148<Electronically signed by John Johnston DO>John Johnston DO CC: Dr. Karon Nunes MD; Dr. Nicci Lemus MD; Dr. Pravin Cruz MD; Dr. Darinel Carlos MD ~ Signed [facility] Work Phone: Discharge summary Author Felicia [facility] Note Date/Time February 19, 2025 12:27[facility] Medical Records Department [address] [place] [address] Instructions for Home/Discharge Instructions 02/19/25 1226 MR#: [id number] Acct: [id number] Name: SAPNA BULLARD Rep #:[id number] : 1940 85 From: Felicia Paniagua MD PCP: Dr. Genevieve Wu MD Status:A DM IN Discharge Instructions DC O2, CPAP, BIPAP needs Home O2 Discharge instructions: No Dressing / Incision Discharge Activity: Return to Normal Activity Weight Bearing Status: Weight bearing as tolerated Dressing / Incision Call your doctor if you observe: Fever of 101 or Higher, Shortness of breath, Dizziness and Swelling in the ankles Follow Up Care Test Results: Test results from this visit will be discussed in further detail at your follow- up appointment, if applicable. Discharge Plan Admission Admit Date/Time: 02/14/25 15:11 Primary Reason for Your Visit: acute encephalopathy, dementia with behavioral disturbance Attending Provider: Felicia Paniagua Primary Care Provider: Genevieve Wu Consulting Providers: Liudmila Morin Instructions Patient Instructions: Diabetes: Cognitive Changes, Delirium and Dementia Discharge Orders/Prescriptions Prescriptions: New levofloxacin 250 mg Tablet 250 mg PO DAILY@0600 Qty: 4 0RF Continued donepezil 10 mg tablet 10 mg PO QHS Qty: 30 6RF memantine 10 mg tablet 10 mg PO BID Qty: 60 6RF acetaminophen 325 mg tablet 650 mg PO Q4H PRN PRN (Reason: Fever, pain 1-03/24) Rx Instructions: Do not exceed 3000mg in 24 hrs calcium carbonate 600 mg calcium (1,500 mg) tablet 600 mg PO BID propranolol 20 mg tablet 20 mg PO .COMPLEX Rx Instructions: 20mg tid at 0700,1200, 1700. Hold for pulse less than 55 ipratropium bromide 21 mcg (0.03 %) spray,non-aerosol 2 spray intranasal QDAY Rx Instructions: administer into each nostril pramipexole 0.5 mg tablet 0.5 mg PO BID cholecalciferol (vitamin D3) 50 mcg (2,000 unit) capsule 50 mcg PO QDAY lidocaine [Aspercreme (lidocaine)] 4 % adhesive patch,medicated 1 patch topical QDAY PRN (Reason: pain) alendronate [Fosamax] 70 mg tablet 70 mg PO QWEEK Rx Instructions: takes every thursday Muscle Rub 15-10 % cream 1 applic topical BID PRN (Reason: muscle pain) diclofenac sodium [Voltaren Arthritis Pain] 1 % gel 4 g topical ONCE Rx Instructions: apply to single knee, ankle, foot; for foot includes sole/toes/top of foot sennosides-docusate sodium [Stool Softener-Stimulant Laxat] 8.6-50 mg Tablet 2 tab PO BID PRN PRN (Reason: Constipation) Qty: 0 0RF tramadol 50 mg tablet 50 mg PO BID Qty: 60 0RF Discontinued acetaminophen 500 mg tablet 1,000 mg PO Q8H PRN Rx Instructions: Do not exceed 3000mg in 24 hrs tramadol 50 mg tablet 50 mg PO QDAY PRN (Reason: pain) Qty: 20 0RF Referrals / Follow Up: Genevieve Wu MD [Primary Care Provider] - Within 1 Week Disposition Disposition (needs filled in before D/C Order can be placed): NonSkilled NH/Intermed Care 02/19/25 1227<Electronically signed by Felicia Paniagua MD>Felicia Paniagua MD CC: Dr. Genevieve Wu MD; Dr. Liudmila Morin MD ~ Signed [facility] Work Phone: Evaluation note* Diagnosis Onset Date Resolution Status Cognitive decline acute Essential tremor chronic GERD (gastroesophageal reflux disease) chronic Low back pain chronic Acute hypokalemia acute Acute UTI acute Dehydration acute Encephalopathy acute Fall acute Rhabdomyolysis acute Essential tremor chronic [facility] Work Phone: Evaluation note* Diagnosis Onset [...] infection acut e Vitamin D deficiency acute [facility] Work Phone: Evaluation note* Diagnosis Onset Date Resolution Status Essential tremor chronic Acute hypokalemia resolved Dehydration resolved Encephalopathy resolved Allergic rhinitis acute Debility acute Essential tremor acute Insomnia acute Iron deficiency anemia acute Osteoporosis acute Restless leg syndrome acute Vitamin D deficiency acute Encephalopathy resolved Hypokalemia resolved Rhabdomyolysis resolved Urinary tract infection reso lved Dementia chronic Fatigue chronic [facility] Work Phone: Evaluation note* Diagnosis Onset Date Resolution Status Anxiety chronic Vitamin D deficiency chronic Urinary tract infection none active UTI (urinary tract infection) acute [facility] Work Phone: Evaluation note* Diagnosis Onset Date Resolution Status UTI (urinary tract infection) resolved Anxiety chronic Vitamin D deficiency chronic [facility] Work Phone: Evaluation note* Diagnosis Onset Date Resolution Status Anxiety chronic Vitamin D deficiency chronic Urinary tract infection none active UTI (urinary tract infection) resolved [facility] Work Phone: History and physical note Author Liudmila Morin [facility] Note Date/Time February 14, 2025 3:22pm [facility] Medical Records Department [address] [place] [address] H&P Exam - Hospitalist 02/14/25 1511 MR#: [id number] Acct: [id number] Name: SAPNA BULLARD Rep #:[id number] : 1940 85 From: Liudmila Morin MD PCP: Dr. Genevieve Wu MD Status:A DM IN [place] [facility] [id number] HPI - General General Date of Admission: 02/14/25 Date of Service: 02/14/25 Chief Complaint: Altered mental status, weakness HPI Narrative SAPNA BULLARD, is a 85-year-old female history of GERD, dementia, essential tremor,restless leg syndrome who presented to [facility] ED 02/14/2025 from [facility] for confusion, weakness, stool and urinary incontinence. Patient poor historian so history per EMS report and son. Reportedly she was at her baseline yesterday when she went for an outing however since that eveningshe had increasing weakness and subsequently increased confusion with urinary and stool incontinence. Does have some chronic waxing waning of orientation but currently worse than baseline. In the ED temp 98.8, heart rate 83, blood pressure 134/85, respiratory rate 22 pulse ox 98% on room air. CBC with white count of 10, hemoglobin of 11.5, CMP with a BUN of 18 and a creatinine of 0.94, alk phos slightly elevated at 150, lipase normal, troponin 35, chest x-ray showed lingular atelectasis or pneumonia and findings suggestive of COPD. COVID/flu/RSV negative. UA not suggestive of infection. Patient evaluated bedside, she is confused and unable to answer any questions meaningfully, son reports yesterday she was in her usual health but today she is weak and more confused, does note that she has had increased cough on top of her chronic coughbut has not been able to get much up. Unable to obtain any further history [facility] Medical History (Updated 02/14/25 @ 15:[address] Liudmila Morin MD) Acid reflux Anemia Anxiety Chronic low back pain Chronic pain Cognitive decline Dementia Dementia Essential tremor Former smoker Fracture of left humerus GERD (gastroesophageal reflux disease) History of ovarian cyst History of wrist fracture Hyperlipemia Hypertension Left bundle branch block Neuropathy Osteoporosis Restless leg syndrome Wears hearing aid in both ears Home Medications ?Medication ?Instructions ?Recorded ?Last Taken ?Type sennosides 8.6 mg-docusate sodium 2 tab PO BID PRN PRN Constipation 04/23/23 Unknown Rx 50 mg tablet (Stool #0 tabs Softener-Stimulant Laxative) donepezil 10 mg tablet 10 mg PO QHS #30 tabs Unknown Rx memantine 10 mg tablet 10 mg PO BID #60 tabs Unknown Rx acetaminophen 325 mg tablet 650 mg PO Q4H PRN PRN Feve r, pain 07/19/24 Unknown History -03/24 acetaminophen 500 mg tablet 1,000 mg PO Q8H PRN Unknown History calcium carbonate 600 mg PO BID 07/19/24 Unkno wn History cholecalciferol (vitamin D3) 25 50 mcg PO DAILY Unknown History mcg (1,000 unit) tablet (Vitamin D3) ipratropium bromide 21 mcg (0.03 2 spray intranasal QD AY 07/19/24 Unknown History %) nasal spray nut tx, lact-reduced, iron 0.09 120 ml PO TID 07/19/24 Unknown History gram-2.25 kcal/mL oral liquid (Boost [facility]) propranolol 20 mg tablet 20 mg PO .COMPLEX 07/19/24 U nknown History alendronate 70 mg tablet mg PO 10/05/24 Unknown Histo ry pramipexole 0.5 mg tablet 0.5 mg PO BID 10/05/24 Unkno wn History tramadol 50 mg tablet 50 mg PO QDAY PRN pain #20 t abs 10/31/24 Unknown Rx alendronate 70 mg tablet (Fosamax) 70 mg PO QWEEK 11/14 11/06 Unknown History cholecalciferol (vitamin D3) 50 50 mcg PO QDAY 5 Unknown History mcg (2,000 unit) capsule diclofenac sodium 1 % topical gel 4 g topical ONCE Unknown History (Voltaren Arthritis Pain) lidocaine 4 % topical patch 1 patch topical QDAY PRN 0 12/07/24 Unknown History (Aspercreme (lidocaine)) methyl salicylate 15 %-menthol 10 1 applic topical BID PRN 12/07/24 Unknown History % topical cream (Muscle Rub) tramadol 50 mg tablet 50 mg PO BID #60 tabs Unknown Rx Allergy/AdvReac Type Severity Reaction Status Date / Time No Known Allergies Allergy Verified 12/07/24 09:25 Family History Grandmother Colon cancer Father Colon [...] details: PT frequency: 1-2 times per week herrera/zoroastrian: [facility] seatbelt use: always ROS ROS Narrative Unable to obtain ROS secondary to mental status Vital Signs Vital Signs Vital Signs: 02/14/25 09:36 02/14/25 09:45 02/14/25 11:11 Temperature 98.8 F 98.8 F Temperature Source Axillary Axillary Pulse Rate 83 76 Respiratory Rate 22 H 18 Respiratory Effort Short of Breath Respiratory Pattern Tachypnea Blood Pressure 134/85 H 135/68 H Blood Pressure Mean 101 90 Pulse Ox 98 97 Oxygen Delivery Method Room Air Room Air 02/14/25 13:00 02/14/25 14:00 02/14/25 14:13 Temperature 98 F 97.9 F 97.8 F Temperature Source Temporal Temporal Pulse Rate 63 62 72 Respiratory Rate 18 18 18 Respiratory Effort Respiratory Pattern Blood Pressure 125/94 H 128/58 H 128/58 H Blood Pressure Mean 104 81 81 Pulse Ox 96 96 96 Oxygen Delivery Method Room Air Room Air Weight Weight: 58.2 kg Body Mass Index (BMI) 21.3 Physical Exam Narrative General: Patient confused and agitated HEENT: Atraumatic, normocephalic Eyes: Anicteric, normal conjunctiva, extraocular movements grossly intact Neck: Supple Respiratory: Slightly tachypneic, would not take a deep breath for auscultation Cardiovascular: Regular rate and rhythm GI: Soft, nontender, nondistended Extremities: No edema Musculoskeletal: Moving all extremities Neuro: No overt focal neurological deficits though patient not able to participate in meaningful neurologic exam Skin: No rashes appreciated Psych: Uncooperative, agitated Results Lab / Micro Data 02/14/25 11:04 02/14/25 11:04 Labs: Laboratory Results - last 24 hr 02/14/25 11:04: WBC 10.0, RBC 4.04 L, Hgb 11.5 L, Hct 35.8 L, MCV 88.6, MCH 28.5, MCHC 32.1, RDW Std Deviation 52.9 H, RDW Coeff of Tiffanie 16.3 H, Plt Count 328, MPV 8.5, Immature Gran % (Auto) 0.700, Neut % (Auto) 74.1 H, Lymph % (Auto)11.8 L, [place] % (Auto) 12.2 H, Eos % (Auto) 0.8, Baso % (Auto) 0.4, Absolute Neuts (auto) 7.4, Absolute Lymphs (auto) 1.18, Nucleated RBC % 0, PT 12.7, INR 0.9, APTT 29.6, Sodium 135, Potassium 3.7, Chloride 100, Carbon Dioxide 23.7, Anion Gap 12, BUN 18, Creatinine 0.94, Estim Creat Clear Calc 40.09 L, Est GFR (MDRD) Non-Af 60, BUN/Creatinine Ratio 19.4, Glucose 92, Calcium 8.9, Total Bilirubin 0.56, AST 25, ALT 14, Alkaline Phosphatase 150 H, Troponin T High Sens35 H, Total Protein 6.9, Albumin 3.7, Globulin 3.1, Albumin/Globulin Ratio 1.2, Lipase 40 02/14/25 11:06: Lactic Acid 1.3 02/14/25 12:52: Urine Color Yellow, Urine Clarity Clear, Urine pH 6.0, Ur Specific [place] 1.015, Urine Protein Negative, Urine Glucose (UA) Normal, UrineKetones 5 H, Urine Occult Blood Negative, Urine Nitrite Negative, Urine Bilirubin Negative, Urine Urobilinogen Normal, Ur Leukocyte Esterase 25 H, UrineRBC 0 SEEN, Urine WBC 0-5 SEEN, Ur Squamous Epith Cells 0 SEEN, Urine Bacteria 0SEEN, Urine Mucus 0 SEEN 02/14/25 13:20: Troponin T Hi Sens 2 Hr 32 H Micro: Microbiology 02/14/25 11:39 Mucosa - Nose SARS-CoV-2, Influenza & RSV (PCR) - Final Imaging Radiology Impression Chest X-Ray 02/14/25 11:40 IMPRESSION: 1. Lingular atelectasis or pneumonia. 2. Suggestion of COPD. Reading Location: REPLACED BY [facility] Assessment & Plan Assessment/Plan (1) Community acquired pneumonia: PLAN: Plan #Community-acquired pneumonia -Imaging: Chest x-ray suggestive of pneumonia -DuoNebs and as needed albuterol -Sputum culture, COVID ordered, respiratory panel ordered -Urine antigens -Mucinex, I/S -Rocephin and azithromycin # Acute metabolic encephalopathy - Patient more weak and confused, suspect this is secondary to underlying pneumonia - Family reports she is already more awake with some fluids and antibiotics however still confused and agitated - Did schedule melatonin and Risperdal twice daily to help with patient's agitation, I do not suspect she will need this on discharge once underlying medical etiology improved #Dementia -Supportive care -Continue home medications # Restless leg syndrome -continue patient's home medication regimen #GERD - Does not appear patient currently on PPI - Tums as needed #DVT ppx: SCDs Liudmila Morin MD Charges/Coding Visit Charges Inpatient E&M: 11162 Init Hosp L2 02/14/25 1522 <Electronically signed by Liudmila Morin MD> Cosigner Signature (if applicable): CC: Dr. Genevieve Wu MD; Dr. Liudmila Morin MD~ Signed [facility] Work Phone: Reason for referral (narrative)No reason for referral information availableWSelect [facility] [place] Work Phone: Reason for Referral Status Reason Specialty Diagnoses / Procedures Referred By Contact Referred To Contact Authorized Radiology Diagnoses Other closed displaced fracture of distal end of left humerus, initial encounter Procedures CT ELBOW LEFT WO CONTRAST Gerson Adamson MD [address] [facility] [address] [place] [address] Assessments Diagnosis Other closed displaced fracture of [...] Date/ Time Name of Medical Power of Experience Planning Strategist [facility] December 10, 2021 8:22pm Living Will Yes December 10, 2021 8:22pm Power of Experience Planning Strategist Yes December 10 8:22pm Advance Directive Response Recorded Date/ Time Name of Medical Power of Experience Planning Strategist [facility] December 11, 2021 1:38am Living Will Yes December 11, 2021 1:38am Power of Experience Planning Strategist Yes December 11 1:38am Advance Directive Response Recorded Date/ Time Name of Medical Power of Experience Planning Strategist [facility] December 11, 2021 1:38am Name of Medical Power of Experience Planning Strategist [facility] December 13, 2021 4:16pm Living Will Yes December 17, 2021 5 :14pm Power of Experience Planning Strategist No December 17, 2021 5:14pm Advance Directive Response Recorded Date/ Time Name of Medical Power of Experience Planning Strategist [facility] December 11, 2021 1:38am Name of Medical Power of Experience Planning Strategist [facility] December 13, 2021 4:16pm Name of Medical Power of Experience Planning Strategist son February 15, 2022 1:17pm Living Will Yes February 15, 2 022 1:17pm Power of Experience Planning Strategist Yes February 15, 2022 1:17pm Advance Directive Response Recorded Date/ Time Name of Medical Power of Experience Planning Strategist Kwesi Bullard April 16, 2023 8:33pm Living Will Yes April 16 8:33pm Power of Experience Planning Strategist Yes April 16, 2023 8:33pm Advance Directive Response Recorded Date/ Time Living Will Yes April 16 9:33pm Do you have a Healthcare Power of Experience Planning Strategist? Yes April 16, 2023 9:33pm Advance Directive Response Recorded Date/ Time Do you have a Healthcare Power of Experience Planning Strategist? Yes February 14, 2025 3:37pm Name of Medical Power of Experience Planning Strategist thaddeus tay February 14, 2025 3:37pm Chief Complaint and Reason for Visit Chief [...] M FU July 19, 2024 9 :51am [facility] July 5:00am J98.4 Other [...] 0am Hyperlipemia October 05, 2024 9:0 0am Chief Complaint Admit Date 6 M FU July 19, 2024 9 :51am [facility] July 5:00am J98.4 Other disorders of lung July 162024 5:50pm LABOWRK August 29, 2024 5:0 0am Lung Nodule September 08, 2024 11: 20am LABWORK October 03, 2024 5:[address] (Self) October 05, 2024 9:0 0am [facility] WORK October 31, 2024 4:0 0am CHEST PAIN November 08, 2024 8:58a m Chief Complaint Admit Date [facility] July 5:00am J98.4 Other disorders of lung July 162024 5:50pm LABOWRK August 29, 2024 5:0 0am Lung Nodule September 08, 2024 11: 20am LABWORK October 03, 2024 5:[address] (Self) October 05, 2024 9:0 0am [facility] LAB WORK October 31, 2024 4:0 0am CHEST PAIN November 08, 2024 8:58a m R93.89 Abnormal findings on diagnostic i maging of November 28, 2024 5:50pm 4 M FU November 29, 2024 10:0 5am Reason for Visit Admit Date Abnormal chest CT September 08, 2024 11: 20am Left bundle branch block October 05 9:00am Abnormal chest CT October 05, 2024 9:0 0am Dementia October 05, 2024 9:0 0am Hyperlipemia October 05, 2024 9:0 0am Chief Complaint Admit Date LABOWRK August 29, 2024 5:0 0am Lung Nodule September 08, 2024 11: 20am LABWORK October 03, 2024 5:[address] (Self) October 05, 2024 9:0 0am USP LAB WORK October 31, 2024 4:0 0am CHEST PAIN November 08, 2024 8:58a m LABWORK November 28, 2024 5:00 am R93.89 Abnormal findings on diagnostic i maging of November 28, 2024 5:50pm 4 M FU November 29, 2024 10:0 5am Reason for Visit Admit Date Abnormal chest CT September 08, 2024 11: 20am Left bundle branch block October 05 9:00am Abnormal chest CT October 05, 2024 9:0 0am Dementia October 05, 2024 9:0 0am Hyperlipemia October 05, 2024 9:0 0am Dementia November 29, 2024 10:0 5am Essential tremor November 29, 2024 10:0 5am Restless leg syndrome November 29, 2024 10 :05am Vitamin D deficiency November 29, 2024 10: 05am Chief Complaint Admit Date LABOWRK August 29, 2024 5:0 0am Lung Nodule September 08, 2024 11: 20am LABWORK October 03, 2024 5:[address] (Self) October 05, 2024 9:0 0am USP LAB WORK October 31, 2024 4:0 0am CHEST PAIN November 08, 2024 8:58a m LABWORK November 28, 2024 5:00 am R93.89 Abnormal findings on diagnostic i maging of November 28, 2024 5:50pm 4 M FU November 29, 2024 10:0 5am 3 M FU December 07, 2024 9:10 am Reason for Visit Admit Date Abnormal chest CT September 08, 2024 11: 20am Left bundle branch block October 05 9:00am Abnormal chest CT October 05, 2024 9:0 0am Dementia October 05, 2024 9:0 0am Hyperlipemia October 05, 2024 9:0 0am Dementia November 29, 2024 10:0 5am Essential tremor November 29, 2024 10:0 5am Restless leg syndrome November 29, 2024 10 :05am Vitamin D deficiency November 29, 2024 10: 05am Abnormal chest CT December 07, 2024 9:10 am Chief Complaint Admit Date Lung Nodule September 08, 2024 11: 20am LABWORK October 03, 2024 5:[address] (Self) October 05, 2024 9:0 0am USP LAB WORK October 31, 2024 4:0 0am CHEST PAIN November 08, 2024 8:58a m New Problem November 21, 2024 5:27p m LABWORK November 28, 2024 5:00 am R93.89 Abnormal findings on diagnostic i maging of November 28, 2024 5:50pm 4 M FU November 29, 2024 10:0 5am 3 M FU December 07, 2024 9:10 am Chief Complaint Admit Date LABWORK October 03, 2024 5:[address] (Self) October 05, 2024 9:0 0am NEW CONCERN October 27, 2024 5:30p m USP LAB WORK October 31, 2024 4:0 0am CHEST PAIN November 08, 2024 8:58a m New Problem November 21, 2024 5:27p m LABWORK November 28, 2024 5:00 am R93.89 Abnormal findings on diagnostic i maging of November 28, 2024 5:50pm 4 M FU November 29, 2024 10:0 5am 3 M FU December 07, 2024 9:10 am LABWORK January 02, 2025 5:00 am Reason for Visit Admit Date Left bundle branch block October 05 9:00am Abnormal chest CT October 05, 2024 9:0 0am Dementia October 05, 2024 9:0 0am Hyperlipemia October 05, 2024 9:0 0am Dementia November 29, 2024 10:0 5am Essential tremor November 29, 2024 10:0 5am Restless leg syndrome November 29, 2024 10 :05am Vitamin D deficiency November 29, 2024 10: 05am Abnormal chest CT December 07, 2024 9:10 am Chief Complaint Admit Date NEW CONCERN October 27, 2024 5:30p m USP LAB WORK October 31, 2024 4:0 0am CHEST PAIN November 08, 2024 8:58a m New Problem November 21, 2024 5:27p m LABWORK November 28, 2024 5:00 am R93.89 Abnormal findings on diagnostic i maging of November 28, 2024 5:50pm 4 M FU November 29, 2024 10:0 5am 3 M FU December 07, 2024 9:10 am LABWORK January 02, 2025 5:00 am PNEUMONIA AND METABOLIC ENCEPHALOPATHY S eptember 2024 3:11pm Reason for Visit Admit Date Dementia November 29, 2024 10:0 5am Essential tremor November 29, 2024 10:0 5am Restless leg syndrome November 29, 2024 10 :05am Vitamin D deficiency November 29, 2024 10: 05am Abnormal chest CT December 07, 2024 9:10 am Community acquired pneumonia February 142024 3:11pm Chief Complaint Admit Date NEW CONCERN October 27, 2024 5:30p m USP LAB WORK October 31, 2024 4:0 0am CHEST PAIN November 08, 2024 8:58a m New Problem November 21, 2024 5:27p m LABWORK November 28, 2024 5:00 am R93.89 Abnormal findings on diagnostic i maging of November 28, 2024 5:50pm 4 M FU November 29, 2024 10:0 5am 3 M FU December 07, 2024 9:10 am LABWORK January 02, 2025 5:00 am PNEUMONIA AND METABOLIC ENCEPHALOPATHY S eptember 2024 3:11pm PNEUMONIA AND METABOLIC ENCEPHALOPATHY S eptember 2024 5:30pm PNEUMONIA AND METABOLIC ENCEPHALOPATHY S eptember 2024 1:24pm PNEUMONIA AND METABOLIC ENCEPHALOPATHY S eptember 2024 3:03am PNEUMONIA AND METABOLIC ENCEPHALOPATHY S eptember 2024 3:00pm Additional Source Comments INFORMATION SOURCE (unrecogn ized section and content) DATE CREATED AUTHOR 07/07/2020 [facility] DATE CREATED AUTHOR AUTHOR'S ORGANIZ ATION 12/16/2022 [facility] ([place]) DATE CREATED AUTHOR AUTHOR'S ORGANIZ ATION 02/03/2025 [place] DATE CREATED AUTHOR AUTHOR'S ORGANIZ ATION 02/20/2025 [facility] Goals (unrecognized section and content) Goals may be documented in a n alternate sectionGoals may be documented in an alternate sectionGoals may be documented in an alternate sectionGoals may be documented in an alternate sectionGoals may be documented in an alternate sectionGoals may be documented in an alternate sectionGoals may be documented in an alternate sectionGoals may be documented in an alternate sectionGoals may be documented in an alternate sectionGoals may be documented in an alternate sectionGoals may be documented in an [...] October 05, 2024 End: October 05, 2024 Team Status: Inactive Member Role Status Dates Dr. Genevieve Wu MD Primary Care Provider Active Start: October 31, 2024 End: October 31, 2024 Genevieve CUBA MD Attending Provider Active Start: October 31, 2024 End: October 31, 2024 Genevieve CUBA MD Referring Provider Active Start: October 31, 2024 End: October 31, 2024 Team Status: Inactive Member Role Status Dates Dr. Genevieve Wu MD Primary Care Provider Active Start: November 08, 2024 End: November 08, 2024 Dr. Yunior Desai MD Attending Provider Active Start: November 08, 2024 End: November 08, 2024 Dr. Yunior Desai MD Referring Provider Active Start: November 08, 2024 End: November 08, 2024 Team Status: Active Member Role Status Dates Dr. Genevieve Wu MD Primary Care Provider Active Start: November 08, 2024 Dr. Sharon Crouch MD Attending Provider Active Start: November 08, 2024 Team Status: Active Member Role Status Dates Dr. Genevieve Wu MD Primary Care Provider Active Start: November 28, 2024 Genevieve CUBA MD Attending Provider Active Start: November 28, 2024 Team Status: Inactive Member Role Status Dates Dr. Genevieve Wu MD Primary Care Provider Active Start: November 28, 2024 End: November 28, 2024 Dr. Willian Palm DO Attending Provider Active S tart: November 28, 2024 End: November 28, 2024 Dr. Willian Palm DO Referring Provider Active S tart: November 28, 2024 End: November 28, 2024 Team Status: Inactive Member Role Status Dates Dr. Genevieve Wu MD Primary Care Provider Active Start: November 29, 2024 End: November 29, 2024 Dr. Genevieve Wu MD Referring Provider Active Start: November 29, 2024 End: November 29, 2024 Dr. Vish Cook MD Attending Provider Active Start: November 29, 2024 End: November 29, 2024 Team Status: Active Member Role Status Dates Dr. Genevieve Wu MD Primary Care Provider Active Start: August 01, 2024 Genevieve CUBA MD Attending Provider Active Start: August 01, 2024 Team Status: Inactive Member Role Status Dates Dr. Genevieve Wu MD Primary Care Provider Active Start: August 03, 2024 End: August 03, 2024 Dr. Geneiveve Wu MD Attending Provider Active Start: August 03, 2024 End: August 03, 2024 Dr. Genevieve Wu MD Referring Provider Active Start: August 03, 2024 End: August 03, 2024 Team Status: Active Member Role Status Dates Dr. Genevieve Wu MD Primary Care Provider Active Start: November 28, 2024 Dr. Willian Palm DO Attending Provider Active S tart: November 28, 2024 Dr. Willian Palm DO Referring Provider Active S tart: November 28, 2024 Team Status: Inactive Member Role Status [...] Provider, Referr ing Provider Active Elliott Grigsby NATIONAL OPELINT ANALYST, NATIONAL OPELINT ANALYST-C Attending Provider Active Team Status: Active Member [...] Carlos MD Other Provider Active Dr. John Tereletsky , DO Attending Provider, Other Pro vider Active Dr. Pravin Cruz MD Other Provider Active Team Status: Inactive Member Role Status Dates Dr. Lalo Palm , Primary Care Provider Active MIKIE Downey Attending Provider Active Team Status: Inactive Member Role Status Dates Dr. Nicholas Cohen , Emergency Provider Active Dr. Nicci Lemus MD Primary Care Provider Active Dr. Karon Nunes MD Admit Provider, Other Provider Active Dr. Darinel Carlos MD Other Provider Active Dr. John Johnston , Attending Provider Active Dr. Pravin Cruz MD Other Provider Active Team Status: Inactive Member Role Status Dates Dr. Lalo Palm , DO Referring Provider Active Dr. Vish Cook [...] End: July 04, 2024 Barbara Castro NP, NATIONAL OPELINT ANALYST-C Attending Provider Active Start: July 04, 2024 [...] Wu MD Primary Care Provider Active Start: December 07, 2024 End: December 07, 2024 Dr. Genevieve Wu MD Referring Provider Active Start: December 07, 2024 End: December 07, 2024 MIKIE De Santiago Attending Provider Active Start: December 07, 2024 End: December 07, 2024 Team Status: Active Member Role/Relationship Status Dates Dr. Genevieve Wu MD Primary Care Provider Active Team Status: Inactive Member Role/Relationship Status Dates Dr. Genevieve Wu MD Primary Care Provider Active Start: September 08, 2024 End: September 08, 2024 Dr. Genevieve Wu MD Referring Provider Active Start: September 08, 2024 End: September 08, 2024 Dr. Willian Palm DO Attending Provider Active S tart: September 08, 2024 End: September 08, 2024 Team Status: Inactive Member Role/Relationship Status Dates Dr. Genevieve Wu MD Primary Care Provider Active Start: October 03, 2024 End: October 03, 2024 Genevieve CUBA MD Attending Provider Active Start: October 03, 2024 End: October 03, 2024 Team Status: Inactive Member Role/Relationship Status Dates Dr. Genevieve Wu MD Primary Care Provider Active Start: October 05, 2024 End: October 05, 2024 Dr. Genevieve Wu MD Referring Provider Active Start: October 05, 2024 End: October 05, 2024 Dr. Yunior Desai MD Attending Provider Active Start: October 05, 2024 End: October 05, 2024 Team Status: Inactive Member Role/Relationship Status Dates Dr. Genevieve Wu MD Primary Care Provider Active Start: October 31, 2024 End: October 31, 2024 Genevieve CUBA MD Attending Provider Active Start: October 31, 2024 End: October 31, 2024 Genevieve CUBA MD Referring Provider Active Start: October 31, 2024 End: October 31, 2024 Team Status: Inactive Member Role/Relationship Status Dates Dr. Genevieve Wu MD Primary Care Provider Active Start: November 08, 2024 End: November 08, 2024 Dr. Yunior Desai MD Attending Provider Active Start: November 08, 2024 End: November 08, 2024 Dr. Yunior Desai MD Referring Provider Active Start: November 08, 2024 End: November 08, 2024 Team Status: Active Member Role/Relationship Status Dates Dr. Genevieve Wu MD Primary Care Provider Active Start: November 08, 2024 Dr. Sharon Crouch MD Attending Provider Active Start: November 08, 2024 Team Status: Inactive Member Role/Relationship Status Dates Dr. Genevieve Wu MD Primary Care Provider Active Start: November 21, 2024 End: November 21, 2024 Barbara Castro NP, NATIONAL OPELINT ANALYST-C Attending Provider Active Start: November 21, 2024 End: November 21, 2024 Team Status: Active Member Role/Relationship Status Dates Dr. Genevieve Wu MD Primary Care Provider Active Start: November 28, 2024 Genevieve CUBA MD Attending Provider Active Start: November 28, 2024 Team Status: Inactive Member Role/Relationship Status Dates Dr. Genevieve Wu MD Primary Care Provider Active Start: November 28, 2024 End: November 28, 2024 Dr. Willian Palm DO Attending Provider Active S tart: November 28, 2024 End: November 28, 2024 Dr. Willian Palm DO Referring Provider Active S tart: November 28, 2024 End: November 28, 2024 Team Status: Inactive Member Role/Relationship Status Dates Dr. Genevieve Wu MD Primary Care Provider Active Start: November 29, 2024 End: November 29, 2024 Dr. Genevieve Wu MD Referring Provider Active Start: November 29, 2024 End: November 29, 2024 Dr. Vish Cook MD Attending Provider Active Start: November 29, 2024 End: November 29, 2024 Team Status: Inactive Member Role/Relationship Status Dates Dr. Genevieve Wu MD Primary Care Provider Active Start: December 07, 2024 End: December 07, 2024 Dr. Genevieve Wu MD Referring Provider Active Start: December 07, 2024 End: December 07, 2024 Idalia Stanley NP-C Attending Provider Active Start: December 07, 2024 End: December 07, 2024 Team Status: Active Member Role/Relationship Status Dates Dr. Genevieve Wu MD Primary Care Provider Active Start: January 02, 2025 Genevieve CUBA MD Attending Provider Active Start: January 02, 2025 Team Status: Inactive Member Role/Relationship Status Dates Dr. Genevieve Wu MD Primary Care Provider Active Start: October 03, 2024 End: October 03, 2024 Genevieve CUBA MD Attending Provider Active Start: October 03, 2024 End: October 03, 2024 Team Status: Inactive Member Role/Relationship Status Dates Dr. Genevieve Wu MD Primary Care Provider Active Start: October 05, 2024 End: October 05, 2024 Dr. Genevieve Wu MD Referring Provider Active Start: October 05, 2024 End: October 05, 2024 Dr. Yunior Desai MD Attending Provider Active Start: October 05, 2024 End: October 05, 2024 Team Status: Inactive Member Role/Relationship Status Dates Dr. Genevieve Wu MD Primary Care Provider Active Start: October 27, 2024 End: October 27, 2024 Barbara Castro NP NATIONAL [employer]PEL[employer] ANALYST-C Attending Provider Active Start: October 27, 2024 End: October 27, 2024 Team Status: Inactive Member Role/Relationship Status Dates Dr. Genevieve Wu MD Primary Care Provider Active Start: November 28, 2024 End: November 28, 2024 Genevieve CUBA MD Attending Provider Active Start: November 28, 2024 End: November 28, 2024 Team Status: Inactive Member Role/Relationship Status Dates Dr. Genevieve Wu MD Primary Care Provider Active Start: January 02, 2025 End: January 02, 2025 Genevieve CUBA MD Attending Provider Active Start: January 02, 2025 End: January 02, 2025 Team Status: Inactive Member Role/Relationship Status Dates Dr. Genevieve Wu MD Primary Care Provider Active Start: October 27, 2024 End: October 27, 2024 Barbara Castro NP NATIONAL OPELINT ANALYST-C Attending Provider Active Start: October 27, 2024 End: October 27, 2024 Team Status: Inactive Member Role/Relationship Status Dates Dr. Genevieve Wu MD Primary Care Provider Active Start: October 31, 2024 End: October 31, 2024 Genevieve CUBA MD Attending Provider Active Start: October 31, 2024 End: October 31, 2024 Genevieve CUBA MD Referring Provider Active Start: October 31, 2024 End: October 31, 2024 Team Status: Inactive Member Role/Relationship Status Dates Dr. Genevieve Wu MD Primary Care Provider Active Start: November 08, 2024 End: November 08, 2024 Dr. Yunior Desai MD Attending Provider Active Start: November 08, 2024 End: November 08, 2024 Dr. Yunior Desai MD Referring Provider Active Start: November 08, 2024 End: November 08, 2024 Team Status: Active Member Role/Relationship Status Dates Dr. Genevieve Wu MD Primary Care Provider Active Start: November 08, 2024 Dr. Sharon Crouch MD Attending Provider Active Start: November 08, 2024 Team Status: Inactive Member Role/Relationship Status Dates Dr. Genevieve Wu MD Primary Care Provider Active Start: November 21, 2024 End: November 21, 2024 Barbara Castro NP, NATIONAL [employer]PEL[employer] ANALYST-C Attending Provider Active Start: November 21, 2024 End: November 21, 2024 Team Status: Inactive Member Role/Relationship Status Dates Dr. Genevieve Wu MD Primary Care Provider Active Start: November 28, 2024 End: November 28, 2024 Genevieve CUBA MD Attending Provider Active Start: November 28, 2024 End: November 28, 2024 Team Status: Inactive Member Role/Relationship Status Dates Dr. Genevieve Wu MD Primary Care Provider Active Start: November 28, 2024 End: November 28, 2024 Dr. Willian Palm DO Attending Provider Active S tart: November 28, 2024 End: November 28, 2024 Dr. Willian Palm DO Referring Provider Active S tart: November 28, 2024 End: November 28, 2024 Team Status: Inactive Member Role/Relationship Status Dates Dr. Genevieve Wu MD Primary Care Provider Active Start: November 29, 2024 End: November 29, 2024 Dr. Genevieve Wu MD Referring Provider Active Start: November 29, 2024 End: November 29, 2024 Dr. Vish Cook MD Attending Provider Active Start: November 29, 2024 End: November 29, 2024 Team Status: Inactive Member Role/Relationship Status Dates Dr. Genevieve Wu MD Primary Care Provider Active Start: December 07, 2024 End: December 07, 2024 Dr. Genevieve Wu MD Referring Provider Active Start: December 07, 2024 End: December 07, 2024 MIKIE De Santiago Attending Provider Active Start: December 07, 2024 End: December 07, 2024 Team Status: Inactive Member Role/Relationship Status Dates Dr. Genevieve Wu MD Primary Care Provider Active Start: January 02, 2025 End: January 02, 2025 Genevieve CUBA MD Attending Provider Active Start: January 02, 2025 End: January 02, 2025 Team Status: Active Member Role/Relationship Status Dates Dr. Genevieve Wu MD Primary Care Provider Active Start: January 30, 2025 Genevieve CUBA MD Attending Provider Active Start: January 30, 2025 Team Status: Active Member Role/Relationship Status Dates Dr. Genevieve Wu MD Primary Care Provider Active Start: February 14, 2025 Dr. Arya Gannon , DO Emergency Provider Activ e Start: February 14, 2025 Dr. Liudmila Morin MD Admit Provider Active Star t: February 14, 2025 Dr. Liudmila Morin MD Attending Provider Active Start: February 14, 2025 Dr. Liudmila Morin MD Other Provider Active Star t: February 14, 2025 Team Status: Inactive Member Role/Relationship Status Dates Dr. Genevieve Wu MD Primary Care Provider Active Start: February 14, 2025 End: February 19, 2025 Dr. Arya Gannon , DO Emergency Provider Activ e Start: February 14, 2025 End: February 19, 2025 Dr. Liudmila Morin MD Admit Provider Active Star t: February 14, 2025 End: February 19, 2025 Dr. Liudmila Morin MD Other Provider Active Star t: February 14, 2025 End: February 19, 2025 Dr. Felicia Paniagua MD Attending Provider Active Start: February 14, 2025 End: February 19, 2025 Team Status: Active Member Role/Relationship Status Dates Dr. Genevieve Wu MD Primary Care Provider Active Start: February 15, 2025 Dr. Arya Gannon DO Emergency Provider Activ e Start: February 15, 2025 Dr. Liudmila Morin MD Admit Provider Active Star t: February 15, 2025 Dr. Liudmila Morin MD Other Provider Active Star t: February 15, 2025 Dr. Felicia Paniagua MD Attending Provider Active Start: February 15, 2025 Dr. Felicia Paniagua MD Other Provider Active St art: February 15, 2025 Team Status: Active Member Role/Relationship Status Dates Dr. Genevieve Wu MD Primary Care Provider Active Start: February 16, 2025 Dr. Arya Gannon DO Emergency Provider Activ e Start: February 16, 2025 Dr. Liudmila Morin MD Admit Provider Active Star t: February 16, 2025 Dr. Liudmila Morin MD Other Provider Active Star t: February 16, 2025 Dr. Felicia Paniagua MD Attending Provider Active Start: February 16, 2025 Dr. Felicia Paniagua MD Other Provider Active St art: February 16, 2025 Team Status: Active Member Role/Relationship Status Dates Dr. Genevieve Wu MD Primary Care Provider Active Start: February 17, 2025 Dr. Arya Gannon DO Emergency Provider Activ e Start: February 17, 2025 Dr. Liudmila Morin MD Admit Provider Active Star t: February 17, 2025 Dr. Liudmila Morin MD Other Provider Active Star t: February 17, 2025 Dr. Felicia Paniagua MD Other Provider Active St art: February 17, 2025 Dr. Karon Nunes MD Attending Provider Active Start: February 17, 2025 Team Status: Active Member Role/Relationship Status Dates Dr. Genevieve Wu MD Primary Care Provider Active Start: February 18, 2025 Dr. Arya Gannon , Emergency Provider Activ e Start: February 18, 2025 Dr. Liudmila Morin MD Admit Provider Active Star t: February 18, 2025 Dr. Liudmila Morin MD Other Provider Active Star t: February 18, 2025 Dr. Felicia Paniagua MD Attending Provider Active Start: February 18, 2025 Dr. Felicia Paniagua MD Other Provider Active St art: February 18, 2025 FOR RECORDS PERTAINING TO PATIENTS WHO ARE [...] BE BASED ON THE PRIMARY CLINICAL RECORDS. [facility] [employer] [facility]. provides no warranty or guarantee of the accuracy or completeness of information in this document.
[2025-02-21 07:03] LABS: Hematocrit 33.6 % (37-47); Hemoglobin 10.6 g/dL (12.0-15.0); Immature Granulocytes Count 0.120 X10^3/uL (0.0-0.0); Mean Corp Hgb Conc 31.5 g/dL (32-36); Mean Corpuscular Volume 89.1 fL (81-99); Mean Platelet Vol. 8.8 fl (6.2-12.0); NRBC Flagged by Analyzer 0 % (0-5); Platelet Count 357 K/mm3 (150-450); RBC Distribution Width CV 15.4 % (11.6-14.6); RBC Distribution Width SD 50.3 fl (35.1-43.9); Red Blood Count 3.77 M/mm3 (4.2-5.4); White Blood Count 8.0 K/mm3 (4.4-11.0)
[2025-02-21 07:41] LABS: Anion Gap 14 (5-15); BUN 23 mg/dL (4-19); BUN/Creat Ratio 24.3 RATIO (10-20); Calcium,Total 9.0 mg/dL (7.6-11.0); Carbon Dioxide 20.9 mmol/L (21.0-32.0); Chloride 104 mmol/L (98-108); Glucose 91 mg/dL (70-99); Potassium 3.5 mmol/L (3.3-5.1)
== END ==
LOC: OLS.WHLTSB 05:00
PROVIDERS: PCP Internal Medicine; Visit Provider Internal Medicine
DX: I10 Essential (primary) hypertension (principal)
CPT/HCPCS: 36415; 80048; 85025

== ENCOUNTER → 2025-02-27 05:00 | Outpatient (REF) | payer MEDICARE, SELFPAY ==
[2025-02-27 09:10] LABS: AST(SGOT) 23 U/L (<=31); Alanine Aminotransfer ALT/SGPT 13 U/L (<=34); Albumin, Serum 3.3 g/dL (3.4-4.8); Alkaline Phosphatase 106 U/L (35-104); Bilirubin, Direct 0.11 mg/dL (0.00-0.30); Cholesterol 156 mg/dL (<=200); Globulin 2.7 g/dL (2.2-4.2); Low Density Lipoprotein Calc. 103 mg/dL; Triglycerides 73 mg/dL; Very Low Density Lipoprotein 15 mg/dL (5-40); Vitamin D,25 Hydroxy 36.3 ng/mL (30-100); cholesterol:hdl ratio screen 4.09
[2025-02-28 08:00] LABS: Hematocrit 33.0 % (37-47); Hemoglobin 10.1 g/dL (12.0-15.0); Immature Granulocytes Count 0.050 X10^3/uL (0.0-0.0); Mean Corp Hgb Conc 30.6 g/dL (32-36); Mean Corpuscular Volume 93.5 fL (81-99); Mean Platelet Vol. 9.4 fl (6.2-12.0); NRBC Flagged by Analyzer 0 % (0-5); Platelet Count 364 K/mm3 (150-450); RBC Distribution Width CV 15.6 % (11.6-14.6); RBC Distribution Width SD 53.2 fl (35.1-43.9); Red Blood Count 3.53 M/mm3 (4.2-5.4); White Blood Count 7.3 K/mm3 (4.4-11.0)
[2025-02-28 08:18] LABS: Anion Gap 13 (5-15); BUN 12 mg/dL (4-19); BUN/Creat Ratio 12.0 RATIO (10-20); Calcium,Total 8.6 mg/dL (7.6-11.0); Carbon Dioxide 22.7 mmol/L (21.0-32.0); Chloride 107 mmol/L (98-108); Glucose 121 mg/dL (70-99); Potassium 3.7 mmol/L (3.3-5.1)
== END ==
LOC: OLS.WHLTSB 05:00
PROVIDERS: PCP Internal Medicine; Visit Provider Internal Medicine
DX: M54.50 Low back pain, unspecified (principal); E43 Unspecified severe protein-calorie malnutrition; M62.562 Muscle wasting and atrophy, not elsewhere classified, left lower leg; M62.561 Muscle wasting and atrophy, not elsewhere classified, right lower leg; I10 Essential (primary) hypertension
CPT/HCPCS: 36415; 80048; 80061; 80076; 82306; 85025

== ENCOUNTER → 2025-03-07 | Outpatient (REF) | payer MEDICARE, SELFPAY ==
--- OUTSIDE RECORDS SUMMARY | 2025-03-07 05:57 | XMS RPT_ITS | CCD ---
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 Vish Cook Attending Provider Seb FAMILY PRACTICE DOCTOR, FAMILY PRACTICE DOCTORRobbin Gonzalez Attending Provider Dr. Nicholas Cohen Emergency Provider [phone] Dr. Nicci Lemus Primary Care Provider Dr. Karon Nunes Admit Provider Dr. Karon Nunes Other Provider Dr. Darinel Carlos Attending Provider Dr. Darinel Carlos Other Provider Dr. Pravin Cruz Attending Provider Dr. Pravin Cruz Other Provider Dr. John Johnston Attending Provider Dr. John Johnston Other Provider [facility] SPECIALIST-C, DUNCAN M Unavailable LESLY SÁNCHEZ, RACHID Justin Unavailable TAQUERIA GORDON Unavailable Unavailable PHYSICAL THERAPY, CONSULT Unavailable Unavai lable PAIN MANAGEMENT, MYLA Unavailable [phone] Cuca RN, Sisi Unavailable Unavailable BONNY RN, [...] Provider Dr. Pravin Cruz Other Provider SALLY VALDEZP-C, DUNCAN Hilton Unavailable Ellenv catherine Lemus MD, Dr. Grajeda Primary Care Provider [phone] Genevieve Wu MD Attending Provider Yulia Wu MD, Dr. Vallejo Primary Care Provider Barbara Benavidez Attending Provider Jazmin SÁNCHEZ, Dr. Vallejo Attending Provider Jayjay SÁNCHEZ, Dr. Grajeda Referring Provider Dr. Vish Cook MD Attending Provider Jazmin SÁNCHEZ, Dr. Vallejo Referring Provider Dr. Willian Palm DO Attending Provider Dr. Yunior Desai MD Attending Provider Jazmin SÁNCHEZ, Dr. Vallejo Primary Care Provider Genevieve Wu MD Attending Provider Yulia Wu MD, Dr. Vallejo Attending Provider Genevieve Wu MD Referring Provider Dr. Yunior Onofre MD Referring Provider Dr. Sharon Crouch MD Attending Provider Jazmin SÁNCHEZ, Dr. Vallejo Primary Care Provider Dr. Willian Palm DO Referring Provider Dr. Vish Cook MD Attending Provider Jazmin SÁNCHEZ, Dr. Vallejo Primary Care Provider Genevieve Wu MD Attending Provider Unavailkali Wu MD, Dr. Vallejo Referring Provider [phone] Jaden FAMILY PRACTICE DOCTOR-C, Idalia Hilton Attending Provider Jazmin SÁNCHEZ, Dr. Vallejo Primary Care Provider Genevieve Wu MD Attending Provider Unavailkali Castro FAMILY PRACTICE DOCTOR-CBarbara Attending Provider Jazmin SÁNCHEZ, Dr. Vallejo Primary Care Provider Jazmin SÁNCHEZ, Dr. Vallejo Referring Provider [phone] Matthew FAMILY PRACTICE DOCTOR-C, Attending Provider Dr. Willian Palm DO Attending Provider WHITE, MARCOS Admitting Unavailable KORNHAUS, [...] Consulting Unavailable WHITE, MARCOS Admitting Unavailable WHITE, MAROCS Primary Care Unavailable KORNHAUS, R NICCI Consulting Unavailable WHITE, MARCOS Attending Unavailable PROVIDER, UNKNOWN Consulting Unavailable PROVIDER, UNKNOWN Consulting Unavailable PROVIDER, UNKNOWN Consulting Unavailable Jazimn SÁNCHEZ, Dr. Vallejo Primary Care Provider Matthew PACHECO-CBarbara Attending Provider Genevieve Wu MD Attending Provider Unavailkali Wu MD, Genevieve Referring Provider UnavailDr. Yunior Stoner MD Attending Provider Dr. Yunior Desai MD Referring Provider Dr. Sharon Crouch MD Attending Provider [phone] Dr. Willian Palm DO Attending Provider Dr. Willian Palm DO Referring Provider Jazmin SÁNCHEZ, Dr. Vallejo Referring Provider Joyce SÁNCHEZ, Dr. Wahl Attending Provider Jaden PACHECO-CIdalia Attending Provider [facility] Dr. Arya RINCON Emergency Provider Mikel SÁNCHEZ, Dr. Nur Admit Provider [phone] Mikel SÁNCHEZ, Dr. Nur Attending Provider Mikel SÁNCHEZ, Dr. Nur Other Provider Arcelia SÁNCHEZ, Dr. Felicia Nick Attending Provider Arcelia SÁNCHEZ, Dr. Felicia Nick Other Provider Manju SÁNCHEZ, Dr. Karon Marrero Attending Provider Villagran, Achintya Referring Unavailable Kornhaus, Nicci Primary Care Unavailable Chevy Lee Attending Unavailable Yunior Desai Referring Unavailable Yunior Desai Attending Unavailable Oleghe, Efewongbe Primary Care Unavailable Koram, Felicia Park Attending Unavailable Liudmila Morin Consulting Unavailable Liudmila Morin Admitting Unavailable Oleghe, Efewongbe Primary Care Unavailable Koram, Felicia Park Consulting Unavailable Oleghe, Efewongbe Primary Care Unavailable Oleghe OLS Efewongbe Attending Unavailabl e Oleghe OLS Efmihirongbe Attending Unavailabl e Oleghe, Efewongbe Primary Care Unavailable Oleghe OLSGerardoongbe Attending Unavailabl e Oleghe, Efewongbe Primary Care Unavailable Kornhaus, Nicci Primary Care Unavailable Oleghe OLS, Efewongbe Attending Unavailabl e Villagran, Achintya Admitting Unavailable Kornhaus, Nicci Primary Care Unavailable Pravin Cruz Attending Unavailable Villagran, Achintya Consulting Unavailable John Johnston Consulting Unavailable Oleghe, Efewongbe Primary Care Unavailable Liudmila Morin Consulting Unavailable Liudmila Morin Admitting Unavailable Koram, Felicia Park Attending Unavailable Willian Palm Attending Unavailable Willian Palm Referring Unavailable Oleghe, Efewongbe Primary Care Unavailable Kornhaus, Nicci Primary Care Unavailable Blake Juarez Attending Unavailable Oleghe OLS, Efewongbe Attending Unavailabl e Oleghe, Efewongbe Primary Care Unavailable Oleghe OLS, Efewongbe Attending Unavailabl e Oleghe, Efewongbe Primary Care Unavailable Oleghe OLS, Efewongbe Attending Unavailabl e Oleghe OLS, Efewongbe Referring Unavailabl e Oleghe, Efewongbe Primary Care Unavailable Oleghe OLS, Efewongbe Attending Unavailabl e Oleghe, Efewongbe Primary Care Unavailable Willian Palm Referring Unavailable Willian Palm Attending Unavailable Oleghe, Efewongbe Primary Care Unavailable [facility], Nicci Primary Care Unavailable Oleghe OLS, Efewongbe Attending Unavailabl e Oleghe OLS, Efewongbe Attending Unavailabl e Oleghe, Efewongbe Primary Care Unavailable Oleghe, Efewongbe Attending Unavailable Oleghe, Efewongbe Primary Care Unavailable Matthew PACHECO, Attending Unavailable Oleghe, Efewongbe Primary Care Unavailable iLudmila Morin Attending Unavailable [facility], Nicci Primary Care Unavailable Oleghe OLS, Efewongbe Attending Unavailabl e Villagran, Achintya Admitting Unavailable [facility], Nicci Primary Care Unavailable Willian Palm Attending Unavailable Villagran, Achintya Consulting Unavailable John Johnston Referring Unavailable John Johnston Consulting Unavailable John Johnston Attending Unavailable Rj Mcdonald Consulting Unavailable Bernardo Ruiz Consulting Unavailable Markus Weldon Consulting Unavailable Willian Palm Consulting Unavailable Emiliano Redmond Consulting Unavailable Guillermo Huggins Consulting Unavailable Nickolas, Terrance Consulting Unavailable Padmini East Consulting Unavailab Adrien Ortiz Consulting Unavailable Yefri Kwok Consulting Unavailable Luis Angel Arias Consulting Unavailable Blanca Fonseca Consulting Unavailable Alleroy Lamia Consulting Unavailable Alivia, Channing Consulting Unavailable Irdrew Daniele Consulting Unavailable Calista, Junaid Consulting Unavailable Johnathan Perry Consulting Unavailable Mercedes Whiting Consulting Unavailable Lux Fletcher Consulting Unavailable Jassi Ashton Consulting Unavailable Bladimir Treviño Consulting Unavailable Pravin Cruz Attending Unavailable Pravin Cruz Consulting Unavailable Matthew PACHECO, Attending Unavailable Oleghe, Efewongbe Primary Care Unavailable Oleghe, Efewongbe Attending Unavailable Oleghe, Efewongbe Primary Care Unavailable Yunior Desai Attending Unavailable Oleghe, Efewongbe Referring Unavailable Oleghe, Efewongbe Primary Care Unavailable Vish Cook Attending Unavailable Oleghe, Efewongbe Primary Care Unavailable Oleghe, Efewongbe Referring Unavailable Idalia Stanley Attending Unavailable Oleghe, Efewongbe Primary Care Unavailable Oleghe, Efewongbe Referring Unavailable Barbara Castro NP Attending Unavailable Oleghe, Efewongbe Primary Care Unavailable Matthew PACHECO, Attending Unavailable Oleghe, Efewongbe Primary Care Unavailable Sharon Crouch Attending Unavailable Oleghe, Efewongbe Primary Care Unavailable Hilaria Villagran Attending Unavailable Cindyton FAMILY PRACTICE DOCTORBarbara Attending Unavailable Oleghe, Efewongbe Primary Care Unavailable Matthew FAMILY PRACTICE DOCTOR, Attending Unavailable Oleghe, Efewongbe Primary Care Unavailable Willian Palm Attending Unavailable Oleghe, Efewongbe Referring Unavailable Oleghe, Efewongbe Primary Care Unavailable Nicci Lemus Referring Unavailable Vish Cook Attending Unavailable Oleghe, Efewongbe Primary Care Unavailable Oleghe OLS, Efewongbe Attending Unavailabl e Oleghe, Efewongbe Primary Care Unavailable Oleghe, Efewongbe Primary Care Unavailable Oleghe, Efewongbe Attending Unavailable Oleghe, Efewongbe Referring Unavailable Medications Current Medications Medication Drug Class(es) [...] tablet Discontinued 25 ug PO DAILY 30 6 January 20, 2024 4:25pm July 19, 2024 [...] docusate sodium 50 mg / sylvia osides, mcfp 8.6 mg oral tablet (20 sources) Start: [...] ( 0.06 %) nasal spray ; 2 Halifax up to three times daily as needed prn allergic rhinitis for 30 days Quantity: 15 {Milliliter} Refills: 11 Ordered: 13-Nov-2022 CAMDEN Thurman Start: 07-Apr-2022 End: 13-Nov-2022 Status: Inactive Comments: Medication taken as needed. Start: 05-08-2021 End: 07-10-2022 Start: 05-08-2021 End: 07-10-2022 Ipratropium Hackberry 42 mcg ( 0.06 %) spray,non-aerosol Discontinued 2 NMA INTRANASAL THREE TIMES A DAY as needed for allergy symptoms 29 06May 08, 2021 1:00am July 10, 2022 12:25pm administer into each nostril Start: 05-08-2021 End: 07-10-2022 take 1 spray(s) nasal route three times daily Ipratropium Hackberry Discontinued 2 SPRAY INTRANASAL THREE TIMES A [...] Start: 30-Jun-2022 Nut Tx, Lact-Reduced, Iron ([facility]) 0.09-2.25 gram-kcal/mL liquid (9 sources) Start: 07-19-2024 Nut Tx, Lact-R educed, Iron ([facility]) 0.09-2.25 gram-kcal/mL liquid Active 120 mL PO [...] 2022 11:25am take 2 capsules by m out three times daily Tylenol 500 MG Oral [...] for Mild-moderate pain (scale 1-5) 20 5 January 02, 2018 12:00am January 15, 2018 1:24pm Closed fracture of left hip Start: 01-02-2018 End: 01-15-2018 take 1 tablet by mouth every six hours as needed Hydrocodone-Acetaminophen Discontinued 1 TABLET PO EVERY 6 HOURS NEEDED 20 January 01, 2018 11:00pm January 15, 2018 [...] %) nasal spray aerosol ; 2 sprays Halifax every 12 hours as needed for rhinitis [...] {tbl} PO THREE TIMES A DAY 90 July 14, 2022 5:51pm November 18, 2022 [...] 2:03pm Comment on above: Patient will call wh en prescription refill is needed. DULoxetine 20 [...] mc g/actuation nasal spray,suspension ; 1 spray Halifax daily as needed for allergic rhinitis for [...] 120 mL PO 4 TIMES DAILY 0 0 April 23, 2023 1:00am June 07, [...] 10 m g oral tablet (20 sources) P-drarak-J-aspartate Receptor Antagonist Start: 02-11-2022 End: 01-20-2024 Start: [...] 7.5 mg PO AT BEDTIME 15 30 December 20, 2021 12:00am July 10, 2022 [...] 07-10-2022 Comment on above: Patient will call wh en prescription refill is needed. potassium phosphate 155 mg / sodium phosphate, dibasic 852 mg / sodium phosphate, monobasic 130 mg oral tablet (20 sources) Start: 12-13-2021 End: 12-20-2021 Start: 12-13-2021 End: 12-20-2021 take 2 tablets by mouth three times daily Sod Phos Di, Lonoke-K Phos Lonoke (J-Bgod-Vsjbiho) 250 mg tablet Discontinued 2 TABLET PO [...] tablet Discontinued 0.5 mg PO EVERY EVENING 30 3 February 23, 2018 8:26am November 16, 2018 11:31am Comment on above: Patient will call wh en prescription refill is needed. primidone 50 [...] Xa Inhibitor Start: 01-01-2018 End: 10-14-2018 sennosides, mcfp 8.6 mg oral tablet (20 sources) Start: [...] Q8H as needed for Pain 30 20 0 July 07, 2024 1:03pm July 26, 2024 1:00am July 12, 2024 1:25pm Moved to [facility] 10. Comment on above: This prescription ex whit 89 days from date of issue. traZODone hydrochloride 100 mg oral tablet (20 sources) Serotonin Reuptake Inhibitor Start: 01-15-2018 End: 11-16-2018 Start: 01-15-2018 End: 11-16-2018 take 1 tablet by mouth at bedtime Trazodone 100 mg tablet Discontinued 100 mg PO AT BEDTIME 30 0 February 23, 2018 8:26am November 16, 2018 11:31am triamcinolone acetonide 0.00 1 mg/mg topical ointment (20 sources) Corticosteroid Start: 05-30-2021 End: 07-10-2022 Start: 05-30-2021 End: 07-10-2022 Triamcinolone Acetonide 0.1 % ointment Discontinued 1 NMA TOPICAL DAILY 30 2 May 30, 2021 1:00am December 13, 2021 [...] sources) Essential hypertension; Translations: [Essential (primary) hypertension] Onset: 5 05-14-2023 Chronic Fluid and electrolyte disorders (20 [...] not elsewhere classified, right lower leg] Onset: 5 Episodic Other connective tissue disease (2 sources) Muscle wasting and atrophy, not elsewhere classified, left lower leg; Translations: [Muscle wasting and atrophy, not elsewhere classified, left lower leg] Onset: 5 Episodic Other eye disorders (20 sources) Dry [...] imaging of other specified body structures] Onset: 5 09-09-2024 Chronic Other skin disorders (20 sources) [...] acquired pneumonia; Translations: [Pneumonia, unspecified organism] Onset: 5 02-14-2025 Episodic Residual codes; unclassified (20 sources) [...] migraine (20 sources) Headache; including migraine 11-13-2022 Malaise and fatigue (20 sources) Fatigue; Translations: [Other fatigue] Onset: 06-21-2024 Episodic Other lower respiratory disease (1 source) [...] to further discuss the symptoms with the assistant track coach.). You should call our office if you [...] Metabolic Profile (BMP )on 02-23-2025 BUN Normal 4-19 [facility] Comment on above: Result Comment: Canc elled via OM: Order cancelled - Patient discharged Performed By: #### L 500.2500, L100.0100 ####[facility] [address] [facility] [address] BUN/CRE Normal 10-20 [facility] Comment on above: Result Comment: Canc elled via OM: Order cancelled - Patient discharged Performed By: #### L 500.2500, L100.0100 ####[facility] [address] [place], [address] Calcium Normal 7.6-11.0 [facility] Comment on above: Result Comment: Canc elled via OM: Order cancelled - Patient discharged Performed By: #### L 500.2500, L100.0100 ####[facility] [address] [place], [address] CL Normal 98-108 [facility] Comment on above: Result Comment: Canc elled via OM: Order cancelled - Patient discharged Performed By: #### L 500.2500, L100.0100 ####[facility] [address] [place], [address] CO2 Normal 21.0-32.0 [facility] Comment on above: Result Comment: Canc elled via OM: Order cancelled - Patient discharged Performed By: #### L 500.2500, L100.0100 ####[facility] [address] [place], [address] CREAT,SERUM Normal 0.70-1.20 [facility] Comment on above: Result Comment: Canc elled via OM: Order cancelled - Patient discharged Performed By: #### L 500.2500, L100.0100 ####[facility] [address] [place], [address] eGFR Normal >60 [facility] Comment on above: Result Comment: Canc elled via OM: Order cancelled - Patient discharged Performed By: #### L 500.2500, L100.0100 ####[facility] [address] [place], [address] GAP Normal 5-15 [facility] Comment on above: Result Comment: Canc elled via OM: Order cancelled - Patient discharged Performed By: #### L 500.2500, L100.0100 ####[facility] [address] [place], [address] GLU Normal 70-99 [facility] Comment on above: Result Comment: Canc elled via OM: Order cancelled - Patient discharged Performed By: #### L 500.2500, L100.0100 ####[facility] [address] [place], [address] Potassium Normal 3.3-5.1 [facility] Comment on above: Result Comment: Canc elled via OM: Order cancelled - Patient discharged Performed By: #### L 500.2500, L100.0100 ####[facility] [address] [place], [address] Basic Metabolic Profile (BMP) Normal 133-145 [facility] Comment on above: Result Comment: Canc elled via OM: Order cancelled - Patient discharged Performed By: #### L 500.2500, L100.0100 ####[facility] [address] [place], [address] CBC W/Diff, Automatedon 09- Absolute Neut Normal 2.0-7.7 [facility] Comment on above: Result Comment: Canc elled via OM: Order cancelled - Patient discharged Performed By: #### L 500.2500, L100.0100 ####[facility] [address] [place], [address] HCT Normal 37-47 [facility] Comment on above: Result Comment: Canc elled via OM: Order cancelled - Patient discharged Performed By: #### L 500.2500, L100.0100 ####[facility] [address] [place], [address] HGB Normal 12.0-15.0 [facility] Comment on above: Result Comment: Canc elled via OM: Order cancelled - Patient discharged Performed By: #### L 500.2500, L100.0100 ####[facility] [address] [place], [address] MCH Normal 27.0-32.0 [facility] Comment on above: Result Comment: Canc elled via OM: Order cancelled - Patient discharged Performed By: #### L 500.2500, L100.0100 ####[facility] [address] [place], [address] MCHC Normal 32-36 [facility] Comment on above: Result Comment: Canc elled via OM: Order cancelled - Patient discharged Performed By: #### L 500.2500, L100.0100 ####[facility] [address] [place], [address] MCV Normal 81-99 [facility] Comment on above: Result Comment: Canc elled via OM: Order cancelled - Patient discharged Performed By: #### L 500.2500, L100.0100 ####[facility] [address] [place], [address] NEUT% Normal 47-70 [facility] Comment on above: Result Comment: Canc elled via OM: Order cancelled - Patient discharged Performed By: #### L 500.2500, L100.0100 ####[facility] [address] [place], [address] PLT Normal 150-450 [facility] Comment on above: Result Comment: Canc elled via OM: Order cancelled - Patient discharged Performed By: #### L 500.2500, L100.0100 ####[facility] [address] [place], [address] RBC Normal 4.2-5.4 [facility] Comment on above: Result Comment: Canc elled via OM: Order cancelled - Patient discharged Performed By: #### L 500.2500, L100.0100 ####[facility] [address] [place], [address] RDW CV Normal 11.6-14.6 [facility] Comment on above: Result Comment: Canc elled via OM: Order cancelled - Patient discharged Performed By: #### L 500.2500, L100.0100 ####[facility] [address] [place], [address] RDW SD Normal 35.1-43.9 [facility] Comment on above: Result Comment: Canc elled via OM: Order cancelled - Patient discharged Performed By: #### L 500.2500, L100.0100 ####[facility] [address] [place], [address] WBC Normal 4.4-11.0 [facility] Comment on above: Result Comment: Canc elled via OM: Order cancelled - Patient discharged Performed By: #### L 500.2500, L100.0100 ####[facility] [address] [place], [address] Basic Metabolic Profile (BMP )on 02-22-2025 BUN Normal 4-19 [facility] Comment on above: Result Comment: Canc elled via OM: Order cancelled - Patient discharged Performed By: #### L 100.0100, L500.2500 ####[facility] [address] [place], [address] BUN/CRE Normal 10-20 [facility] Comment on above: Result Comment: Canc elled via OM: Order cancelled - Patient discharged Performed By: #### L 100.0100, L500.2500 ####[facility] [address] [place], [address] Calcium Normal 7.6-11.0 [facility] Comment on above: Result Comment: Canc elled via OM: Order cancelled - Patient discharged Performed By: #### L 100.0100, L500.2500 ####[facility] [address] [place], [address] CL Normal 98-108 [facility] Comment on above: Result Comment: Canc elled via OM: Order cancelled - Patient discharged Performed By: #### L 100.0100, L500.2500 ####[facility] [address] [place], [address] CO2 Normal 21.0-32.0 [facility] Comment on above: Result Comment: Canc elled via OM: Order cancelled - Patient discharged Performed By: #### L 100.0100, L500.2500 ####[facility] [address] [place], [address] CREAT,SERUM Normal 0.70-1.20 [facility] Comment on above: Result Comment: Canc elled via OM: Order cancelled - Patient discharged Performed By: #### L 100.0100, L500.2500 ####[facility] [address] [place], [address] eGFR Normal >60 [facility] Comment on above: Result Comment: Canc elled via OM: Order cancelled - Patient discharged Performed By: #### L 100.0100, L500.2500 ####[facility] [address] [place], [address] GAP Normal 5-15 [facility] Comment on above: Result Comment: Canc elled via OM: Order cancelled - Patient discharged Performed By: #### L 100.0100, L500.2500 ####[facility] [address] [place], [address] GLU Normal 70-99 [facility] Comment on above: Result Comment: Canc elled via OM: Order cancelled - Patient discharged Performed By: #### L 100.0100, L500.2500 ####[facility] [address] [place], [address] Potassium Normal 3.3-5.1 [facility] Comment on above: Result Comment: Canc elled via OM: Order cancelled - Patient discharged Performed By: #### L 100.0100, L500.2500 ####[facility] [address] [place], [address] Basic Metabolic Profile (BMP) Normal 133-145 [facility] Comment on above: Result Comment: Canc elled via OM: Order cancelled - Patient discharged Performed By: #### L 100.0100, L500.2500 ####[facility] [address] [place], [address] CBC W/Diff, Automatedon 09-1 0-2024 Absolute Neut Normal 2.0-7.7 [facility] Comment on above: Result Comment: Canc elled via OM: Order cancelled - Patient discharged Performed By: #### L 100.0100, L500.2500 ####[facility] [address] [place], [address] HCT Normal 37-47 [facility] Comment on above: Result Comment: Canc elled via OM: Order cancelled - Patient discharged Performed By: #### L 100.0100, L500.2500 ####[facility] [address] [place], [address] HGB Normal 12.0-15.0 [facility] Comment on above: Result Comment: Canc elled via OM: Order cancelled - Patient discharged Performed By: #### L 100.0100, L500.2500 ####[facility] [address] [place], [address] MCH Normal 27.0-32.0 [facility] Comment on above: Result Comment: Canc elled via OM: Order cancelled - Patient discharged Performed By: #### L 100.0100, L500.2500 ####[facility] [address] [place], [address] MCHC Normal 32-36 [facility] Comment on above: Result Comment: Canc elled via OM: Order cancelled - Patient discharged Performed By: #### L 100.0100, L500.2500 ####[facility] [address] [place], [address] MCV Normal 81-99 [facility] Comment on above: Result Comment: Canc elled via OM: Order cancelled - Patient discharged Performed By: #### L 100.0100, L500.2500 ####[facility] [address] [place], [address] NEUT% Normal 47-70 [facility] Comment on above: Result Comment: Canc elled via OM: Order cancelled - Patient discharged Performed By: #### L 100.0100, L500.2500 ####[facility] [address] [place], [address] PLT Normal 150-450 [facility] Comment on above: Result Comment: Canc elled via OM: Order cancelled - Patient discharged Performed By: #### L 100.0100, L500.2500 ####[facility] [address] [place], [address] RBC Normal 4.2-5.4 [facility] Comment on above: Result Comment: Canc elled via OM: Order cancelled - Patient discharged Performed By: #### L 100.0100, L500.2500 ####[facility] [address] [place], [address] RDW CV Normal 11.6-14.6 [facility] Comment on above: Result Comment: Canc elled via OM: Order cancelled - Patient discharged Performed By: #### L 100.0100, L500.2500 ####[facility] [address] [place], [address] RDW SD Normal 35.1-43.9 [facility] Comment on above: Result Comment: Canc elled via OM: Order cancelled - Patient discharged Performed By: #### L 100.0100, L500.2500 ####[facility] [address] [place], [address] WBC Normal 4.4-11.0 [facility] Comment on above: Result Comment: Canc elled via OM: Order cancelled - Patient discharged Performed By: #### L 100.0100, L500.2500 ####[facility] [address] [place], [address] Basic Metabolic Profile (BMP )on 02-21-2025 BUN Normal 4-19 [facility] Comment on above: Result Comment: Canc elled via OM: Order cancelled - Patient discharged Performed By: #### L 500.2500, L100.0100 ####[facility] [address] [place], [address] BUN/CRE Normal 10-20 [facility] Comment on above: Result Comment: Canc elled via OM: Order cancelled - Patient discharged Performed By: #### L 500.2500, L100.0100 ####[facility] [address] [place], [address] Calcium Normal 7.6-11.0 [facility] Comment on above: Result Comment: Canc elled via OM: Order cancelled - Patient discharged Performed By: #### L 500.2500, L100.0100 ####[facility] [address] [place], [address] CL Normal 98-108 [facility] Comment on above: Result Comment: Canc elled via OM: Order cancelled - Patient discharged Performed By: #### L 500.2500, L100.0100 ####[facility] [address] [place], [address] CO2 Normal 21.0-32.0 [facility] Comment on above: Result Comment: Canc elled via OM: Order cancelled - Patient discharged Performed By: #### L 500.2500, L100.0100 ####[facility] [address] [place], [address] CREAT,SERUM Normal 0.70-1.20 [facility] Comment on above: Result Comment: Canc elled via OM: Order cancelled - Patient discharged Performed By: #### L 500.2500, L100.0100 ####[facility] [address] [place], [address] eGFR Normal >60 [facility] Comment on above: Result Comment: Canc elled via OM: Order cancelled - Patient discharged Performed By: #### L 500.2500, L100.0100 ####[facility] [address] [place], [address] GAP Normal 5-15 [facility] Comment on above: Result Comment: Canc elled via OM: Order cancelled - Patient discharged Performed By: #### L 500.2500, L100.0100 ####[facility] [address] [place], [address] GLU Normal 70-99 [facility] Comment on above: Result Comment: Canc elled via OM: Order cancelled - Patient discharged Performed By: #### L 500.2500, L100.0100 ####[facility] [address] [place], [address] Potassium Normal 3.3-5.1 [facility] Comment on above: Result Comment: Canc elled via OM: Order cancelled - Patient discharged Performed By: #### L 500.2500, L100.0100 ####[facility] [address] [place], [address] Basic Metabolic Profile (BMP) Normal 133-145 [facility] Comment on above: Result Comment: Canc elled via OM: Order cancelled - Patient discharged Performed By: #### L 500.2500, L100.0100 ####[facility] [address] [place], [address] CBC W/Diff, Automatedon 09-0 9-2024 Absolute Neut Normal 2.0-7.7 [facility] Comment on above: Result Comment: Canc elled via OM: Order cancelled - Patient discharged Performed By: #### L 500.2500, L100.0100 ####[facility] [address] [place], [address] HCT Normal 37-47 [facility] Comment on above: Result Comment: Canc elled via OM: Order cancelled - Patient discharged Performed By: #### L 500.2500, L100.0100 ####[facility] [address] [place], [address] HGB Normal 12.0-15.0 [facility] Comment on above: Result Comment: Canc elled via OM: Order cancelled - Patient discharged Performed By: #### L 500.2500, L100.0100 ####[facility] [address] [place], [address] MCH Normal 27.0-32.0 [facility] Comment on above: Result Comment: Canc elled via OM: Order cancelled - Patient discharged Performed By: #### L 500.2500, L100.0100 ####[facility] [address] [place], [address] MCHC Normal 32-36 [facility] Comment on above: Result Comment: Canc elled via OM: Order cancelled - Patient discharged Performed By: #### L 500.2500, L100.0100 ####[facility] [address] [place], [address] MCV Normal 81-99 [facility] Comment on above: Result Comment: Canc elled via OM: Order cancelled - Patient discharged Performed By: #### L 500.2500, L100.0100 ####[facility] [address] [place], [address] NEUT% Normal 47-70 [facility] Comment on above: Result Comment: Canc elled via OM: Order cancelled - Patient discharged Performed By: #### L 500.2500, L100.0100 ####[facility] [address] [place], [address] PLT Normal 150-450 [facility] Comment on above: Result Comment: Canc elled via OM: Order cancelled - Patient discharged Performed By: #### L 500.2500, L100.0100 ####[facility] [address] [place], [address] RBC Normal 4.2-5.4 [facility] Comment on above: Result Comment: Canc elled via OM: Order cancelled - Patient discharged Performed By: #### L 500.2500, L100.0100 ####[facility] [address] [place], [address] RDW CV Normal 11.6-14.6 [facility] Comment on above: Result Comment: Canc elled via OM: Order cancelled - Patient discharged Performed By: #### L 500.2500, L100.0100 ####[facility] [address] [place], [address] RDW SD Normal 35.1-43.9 [facility] Comment on above: Result Comment: Canc elled via OM: Order cancelled - Patient discharged Performed By: #### L 500.2500, L100.0100 ####[facility] [address] [place], [address] WBC Normal 4.4-11.0 [facility] Comment on above: Result Comment: Canc elled via OM: Order cancelled - Patient discharged Performed By: #### L 500.2500, L100.0100 ####[facility] [address] [place], [address] Basic Metabolic Profile (BMP )on 02-20-2025 BUN Normal 4-19 [facility] Comment on above: Result Comment: Canc elled via OM: Order cancelled - Patient discharged Performed By: #### L 500.2500, L100.0100 ####[facility] [address] [place], [address] BUN/CRE Normal 10-20 [facility] Comment on above: Result Comment: Canc elled via OM: Order cancelled - Patient discharged Performed By: #### L 500.2500, L100.0100 ####[facility] [address] [place], [address] Calcium Normal 7.6-11.0 [facility] Comment on above: Result Comment: Canc elled via OM: Order cancelled - Patient discharged Performed By: #### L 500.2500, L100.0100 ####[facility] [address] [place], [address] CL Normal 98-108 [facility] Comment on above: Result Comment: Canc elled via OM: Order cancelled - Patient discharged Performed By: #### L 500.2500, L100.0100 ####[facility] [address] [place], [address] CO2 Normal 21.0-32.0 [facility] Comment on above: Result Comment: Canc elled via OM: Order cancelled - Patient discharged Performed By: #### L 500.2500, L100.0100 ####[facility] [address] [place], [address] CREAT,SERUM Normal 0.70-1.20 [facility] Comment on above: Result Comment: Canc elled via OM: Order cancelled - Patient discharged Performed By: #### L 500.2500, L100.0100 ####[facility] [address] [place], [address] eGFR Normal >60 [facility] Comment on above: Result Comment: Canc elled via OM: Order cancelled - Patient discharged Performed By: #### L 500.2500, L100.0100 ####[facility] [address] [place], [address] GAP Normal 5-15 [facility] Comment on above: Result Comment: Canc elled via OM: Order cancelled - Patient discharged Performed By: #### L 500.2500, L100.0100 ####[facility] [address] [place], [address] GLU Normal 70-99 [facility] Comment on above: Result Comment: Canc elled via OM: Order cancelled - Patient discharged Performed By: #### L 500.2500, L100.0100 ####[facility] [address] [place], [address] Potassium Normal 3.3-5.1 [facility] Comment on above: Result Comment: Canc elled via OM: Order cancelled - Patient discharged Performed By: #### L 500.2500, L100.0100 ####[facility] [address] [place], [address] Basic Metabolic Profile (BMP) Normal 133-145 [facility] Comment on above: Result Comment: Canc elled via OM: Order cancelled - Patient discharged Performed By: #### L 500.2500, L100.0100 ####[facility] [address] [place], [address] CBC W/Diff, Automatedon 09-0 -2024 Absolute Neut Normal 2.0-7.7 [facility] Comment on above: Result Comment: Canc elled via OM: Order cancelled - Patient discharged Performed By: #### L 500.2500, L100.0100 ####[facility] [address] [place], [address] HCT Normal 37-47 [facility] Comment on above: Result Comment: Canc elled via OM: Order cancelled - Patient discharged Performed By: #### L 500.2500, L100.0100 ####[facility] [address] [place], [address] HGB Normal 12.0-15.0 [facility] Comment on above: Result Comment: Canc elled via OM: Order cancelled - Patient discharged Performed By: #### L 500.2500, L100.0100 ####[facility] [address] [place], [address] MCH Normal 27.0-32.0 [facility] Comment on above: Result Comment: Canc elled via OM: Order cancelled - Patient discharged Performed By: #### L 500.2500, L100.0100 ####[facility] [address] [place], [address] MCHC Normal 32-36 [facility] Comment on above: Result Comment: Canc elled via OM: Order cancelled - Patient discharged Performed By: #### L 500.2500, L100.0100 ####[facility] [address] [place], [address] MCV Normal 81-99 [facility] Comment on above: Result Comment: Canc elled via OM: Order cancelled - Patient discharged Performed By: #### L 500.2500, L100.0100 ####[facility] [address] [place], [address] NEUT% Normal 47-70 [facility] Comment on above: Result Comment: Canc elled via OM: Order cancelled - Patient discharged Performed By: #### L 500.2500, L100.0100 ####[facility] [address] [place], [address] PLT Normal 150-450 [facility] Comment on above: Result Comment: Canc elled via OM: Order cancelled - Patient discharged Performed By: #### L 500.2500, L100.0100 ####[facility] [address] [place], [address] RBC Normal 4.2-5.4 [facility] Comment on above: Result Comment: Canc elled via OM: Order cancelled - Patient discharged Performed By: #### L 500.2500, L100.0100 ####[facility] [address] [place], [address] RDW CV Normal 11.6-14.6 [facility] Comment on above: Result Comment: Canc elled via OM: Order cancelled - Patient discharged Performed By: #### L 500.2500, L100.0100 ####[facility] [address] [place], [address] RDW SD Normal 35.1-43.9 [facility] Comment on above: Result Comment: Canc elled via OM: Order cancelled - Patient discharged Performed By: #### L 500.2500, L100.0100 ####[facility] [address] [place], [address] WBC Normal 4.4-11.0 [facility] Comment on above: Result Comment: Canc elled via OM: Order cancelled - Patient discharged Performed By: #### L 500.2500, L100.0100 ####[facility] [address] [place], [address] Absolute lymphocyte countOrd ered By: Felicia Paniagua on 02-19-2025 Lymphocytes Auto (Unsp spec) [#/Vol] 1.51 10*3/uL 0.83-4.51 [facility] Anion gap in Serum or Plasma Ordered By: Felicia Paniagua on 02-19-2025 Anion gap [Moles/Vol] 11 mmol/L 5-15 [facility] Automated lymphocyte count a s percentage of total leukocytesOrdered By: Felicia Paniagua on 02-19-2025 Lymphocytes/100 WBC Auto (Unsp spec) 16.5 % Low 19-41 [facility] BUN/creatinine ratioOrdered By: Felicia Paniagua on 02-19-2025 Urea nitrogen/Creatinine [Mass ratio] 26.7 mg/mg High 10-20 [facility] Basic Metabolic Profile (BMP )on 02-19-2025 BUN/CRE 26.7 RATIO High 10-20 [facility] Comment on above: Performed By: #### L 500.2500, L100.0100 ####[facility] [address] [place], [address] Calcium [Mass/Vol] 9.1 mg/dL Normal 7.6-11.0 [facility] Comment on above: Performed By: #### L 500.2500, L100.0100 ####[facility] [address] [place], [address] Chloride [Moles/Vol] 106 mmol/L Normal 98-108 [facility] Comment on above: Performed By: #### L 500.2500, L100.0100 ####[facility] [address] [place], [address] CO2 [Moles/Vol] 23.0 mmol/L Normal 21.0-32.0 [facility] Comment on above: Performed By: #### L 500.2500, L100.0100 ####[facility] [address] [place], [address] Creatinine [Mass/Vol] 0.78 mg/dL Normal 0.70-1.20 [facility] Comment on above: Performed By: #### L 500.2500, L100.0100 ####[facility] [address] [place], [address] ECRCL 45.54 ml/min Low 50-250 [facility] Comment on above: Performed By: #### L 500.2500, L100.0100 ####[facility] [address] [place], [address] GAP 11 Normal 5-15 [facility] Comment on above: Performed By: #### L 500.2500, L100.0100 ####[facility] [address] [place], [address] GFR/1.73 sq M.predicted among non-blacks MDRD (S/P/Bld) [Vol rate/Area] 75 mL/min/{1.73_m2} Normal >60 [facility] Comment on above: Result Comment: mL/m in/1.73m2 CKD-EPI Creatinine Equation (2020) Performed By: #### L 500.2500, L100.0100 ####[facility] [address] [place], [address] Glucose [Mass/Vol] 102 mg/dL High 70-99 [facility] Comment on above: Performed By: #### L 500.2500, L100.0100 ####[facility] [address] [place], [address] Potassium [Moles/Vol] 3.9 mmol/L Normal 3.3-5.1 [facility] Comment on above: Performed By: #### L 500.2500, L100.0100 ####[facility] [address] [place], [address] Sodium [Moles/Vol] 139 mmol/L Normal 133-145 [facility] Comment on above: Performed By: #### L 500.2500, L100.0100 ####[facility] [address] [place], [address] Urea nitrogen [Mass/Vol] 21 mg/dL High 4-19 [facility] Comment on above: Performed By: #### L 500.2500, L100.0100 ####[facility] [address] [place], [address] Basophil percentageOrdered B y: Felicia Paniagua on 02-19-2025 Basophils/100 WBC (Bld) 0.3 % 0-1 [facility] CBC W/Diff, Automatedon Absolute Lymph 1.51 X10 3/uL Normal 0.83-4.51 [facility] Comment on above: Performed By: #### L 500.2500, L100.0100 ####[facility] [address] [place], [address] Absolute Neut 6.3 X10 3/uL Normal 2.0-7.7 [facility] Comment on above: Performed By: #### L 500.2500, L100.0100 ####[facility] [address] [place], [address] Basophils/100 WBC (Bld) 0.3 % Normal 0-1 [facility] Comment on above: Performed By: #### L 500.2500, L100.0100 ####[facility] [address] [place], [address] Eosinophils/100 WBC (Bld) 2.2 % Normal 0-5 [facility] Comment on above: Performed By: #### L 500.2500, L100.0100 ####[facility] [address] [place], [address] Erythrocyte distribution width (RBC) [Ratio] 15.8 % High 11.6-14.6 [facility] Comment on above: Performed By: #### L 500.2500, L100.0100 ####[facility] [address] [place], [address] Hematocrit (Bld) [Volume fraction] 35.0 % Low 37-47 [facility] Comment on above: Performed By: #### L 500.2500, L100.0100 ####[facility] [address] [place], [address] Hemoglobin (Bld) [Mass/Vol] 11.0 g/dL Low 12.0-15.0 [facility] Comment on above: Performed By: #### L 500.2500, L100.0100 ####[facility] [address] [place], [address] IG% 0.700 Normal 0.0-0.9 [facility] Comment on above: Result Comment: IG% - Immature Granulocytes (promyelocytes, myelocytes andmetamyelocytes) > 1% indicates that a LEFT SHIFT is Present. Performed By: #### L 500.2500, L100.0100 ####[facility] [address] [place], [address] Lymphocytes/100 WBC (Bld) 16.5 % Low 19-41 [facility] Comment on above: Performed By: #### L 500.2500, L100.0100 ####[facility] [address] [place], [address] MCH (RBC) [Entitic mass] 28.2 pg Normal 27.0-32.0 [facility] Comment on above: Performed By: #### L 500.2500, L100.0100 ####[facility] [address] [place], [address] MCHC (RBC) [Mass/Vol] 31.4 g/dL Low 32-36 [facility] Comment on above: Performed By: #### L 500.2500, L100.0100 ####[facility] [address] [place], [address] MCV (RBC) [Entitic vol] 89.7 fL Normal 81-99 [facility] Comment on above: Performed By: #### L 500.2500, L100.0100 ####[facility] [address] [place], [address] Monocytes/100 WBC (Bld) 11.2 % High 0-10 [facility] Comment on above: Performed By: #### L 500.2500, L100.0100 ####[facility] [address] [place], [address] Neutrophils/100 WBC (Bld) 69.1 % Normal 47-70 [facility] Comment on above: Performed By: #### L 500.2500, L100.0100 ####[facility] [address] [place], [address] Nucleated RBC (Bld) [#/Vol] 0 10*3/uL Normal 0-5 [facility] Comment on above: Performed By: #### L 500.2500, L100.0100 ####[facility] [address] [place], [address] Platelet mean volume (Bld) [Entitic vol] 8.8 fL Normal 6.2-12.0 [facility] Comment on above: Performed By: #### L 500.2500, L100.0100 ####[facility] [address] [place], [address] Platelets (Bld) [#/Vol] 312 10*3/uL Normal 150-450 [facility] Comment on above: Performed By: #### L 500.2500, L100.0100 ####[facility] [address] [place], [address] RBC (Bld) [#/Vol] 3.90 10*6/uL Low 4.2-5.4 [facility] Comment on above: Performed By: #### L 500.2500, L100.0100 ####[facility] [address] [place], [address] RDW SD 51.9 fl High 35.1-43.9 [facility] Comment on above: Performed By: #### L 500.2500, L100.0100 ####[facility] [address] [place], [address] WBC (Bld) [#/Vol] 9.1 10*3/uL Normal 4.4-11.0 [facility] Comment on above: Performed By: #### L 500.2500, L100.0100 ####[facility] [address] [place], [address] Carbon dioxide, total [Moles /volume] in Central venous bloodOrdered By: Felicia Paniagua on 02-19-2025 CO2 [Moles/Vol] 23.0 mmol/L 21.0-32.0 [facility] Chloride assayOrdered By: Jacquelyn Paniagua on 02-19-2025 Chloride [Moles/Vol] 106 mmol/L 98-108 [facility] Discharge Instructionon Discharge Instruction Normal [facility] Eosinophil percentageOrdered By: Felicia Paniagua on 02-19-2025 Eosinophils/100 WBC (Bld) 2.2 % 0-5 [facility] Erythrocyte distribution wid th ratioOrdered By: Felicia Paniagua on 02-19-2025 Erythrocyte distribution width (RBC) [Ratio] 15.8 % High 11.6-14.6 [facility] Erythrocyte distribution wid th standard deviationOrdered By: Felicia Paniagua on 02-19-2025 Erythrocyte distribution width (RBC) [Ratio] 51.9 fl High 35.1-43.9 [facility] Glomerular filtration rate ( GFR) estimation/1.73 sq m using serum, plasma, or whole bOrdered By: Felicia Paniagua on 02-19-2025 GFR/1.73 sq M.predicted among non-blacks MDRD (S/P/Bld) [Vol rate/Area] 75 mL/min/{1.73_m2} >60 [facility] Hematocrit Auto (Bld) [Volum e fraction]Ordered By: Felicia Paniagua on 02-19-2025 Hematocrit (Bld) [Volume fraction] 35.0 % Low 37-47 [facility] Hemoglobin measurementOrdere d By: Felicia Paniagua on 02-19-2025 Hemoglobin (Bld) [Mass/Vol] 11.0 g/dL Low 12.0-15.0 [facility] Immature granulocytes/100 WB C Auto (Bld)Ordered By: Felicia Paniagua 02-19-2025 Immature granulocytes/100 WBC (Bld) 0.700 % 0.0-0.9 [facility] MCV (mean corpuscular volume ) determinationOrdered By: Felicia Paniagua 02-19-2025 MCV (RBC) [Entitic vol] 89.7 fL 81-99 [facility] Mean corpuscular hemoglobin (MCH) determinationOrdered By: Felicia Paniagua 02-19-2025 MCH (RBC) [Entitic mass] 28.2 pg 27.0-32.0 [facility] Monocyte percentageOrdered B y: Felicia Paniagua on 02-19-2025 Monocytes/100 WBC (Bld) 11.2 % High 0-10 [facility] Neutrophil percentageOrdered By: Felicia Paniagua on 02-19-2025 Neutrophils/100 WBC (Bld) 69.1 % 47-70 [facility] Platelet countOrdered By: Jacquelyn Paniagua on 02-19-2025 Platelets (Bld) [#/Vol] 312 10*3/uL 150-450 [facility] Potassium measurement (mass/ volume)Ordered By: Felicia Paniagua on 02-19-2025 Potassium (Unsp spec) [Mass/Vol] 3.9 mmol/L 3.3-5.1 [facility] RBC Auto (Bld) [#/Vol]Ordere d By: Felicia Paniagua on 02-19-2025 RBC (Bld) [#/Vol] 3.90 10*6/uL Low 4.2-5.4 [facility] Serum creatinine measurement (mass/volume)Ordered By: Felicia Paniagua on 02-19-2025 Creatinine [Mass/Vol] 0.78 mg/dL 0.70-1.20 [facility] Serum glucose measurement (m ass/volume)Ordered By: Felicia Paniagua on 02-19-2025 Glucose [Mass/Vol] 102 mg/dL High 70-99 [facility] Serum or plasma calcium candice urement (mass/volume)Ordered By: Felicia Paniagua on 02-19-2025 Calcium [Mass/Vol] 9.1 mg/dL 7.6-11.0 [facility] Serum or plasma urea nitroge n measurement (mass/volume)Ordered By: Felicia Paniagua on 02-19-2025 Urea nitrogen [Mass/Vol] 21 mg/dL High 4-19 [facility] Sodium levelOrdered By: Felicia Paniagua on 02-19-2025 Sodium [Moles/Vol] 139 mmol/L 133-145 [facility] White blood cell (WBC) count Ordered By: Felicia Paniagua on 02-19-2025 WBC (Bld) [#/Vol] 9.1 10*3/uL 4.4-11.0 [facility] Basic Metabolic Profile (BMP )on 02-18-2025 BUN/CRE 23.6 RATIO High 10-20 [facility] Comment on above: Order Comment: OZIEL NT IS VERY AGGRESSIVE,PAN SILVA RN ASKED THAT WAKE HER. SPOKE TO JAY RN, SHE WILL CALL ONCE PATIENTIS AWAKE AND WE ARE ABLE TO TRY HER Performed By: #### L 500.2500, L100.0100 ####[facility] [address] [place], [address] Calcium [Mass/Vol] 9.0 mg/dL Normal 7.6-11.0 [facility] Comment on above: Order Comment: PATIE NT IS VERY AGGRESSIVE,PAN SILVA RN ASKED THAT WEDONT WAKE HER. SPOKE TO JAY RN, SHE WILL CALL ONCE PATIENTIS AWAKE AND WE ARE ABLE TO TRY HER Performed By: #### L 500.2500, L100.0100 ####[facility] [address] [place], [address] Chloride [Moles/Vol] 105 mmol/L Normal 98-108 [facility] Comment on above: Order Comment: PATIE NT IS VERY AGGRESSIVE,PAN SILVA RN ASKED THAT WEDONT WAKE HER. SPOKE TO JAY RN, SHE WILL CALL ONCE PATIENTIS AWAKE AND WE ARE ABLE TO TRY HER Performed By: #### L 500.2500, L100.0100 ####[facility] [address] [place], [address] CO2 [Moles/Vol] 19.1 mmol/L Low 21.0-32.0 [facility] Comment on above: Order Comment: PATIE NT IS VERY AGGRESSIVE,PAN SILVA RN ASKED THAT WEDONT WAKE HER. SPOKE TO JAY RN, SHE WILL CALL ONCE PATIENTIS AWAKE AND WE ARE ABLE TO TRY HER Performed By: #### L 500.2500, L100.0100 ####[facility] [address] [place], [address] Creatinine [Mass/Vol] 0.77 mg/dL Normal 0.70-1.20 [facility] Comment on above: Order Comment: PATIE NT IS VERY AGGRESSIVE,PAN SILVA RN ASKED THAT WEDONT WAKE HER. SPOKE TO JAY RN, SHE WILL CALL ONCE PATIENTIS AWAKE AND WE ARE ABLE TO TRY HER Performed By: #### L 500.2500, L100.0100 ####[facility] [address] [place], [address] ECRCL 45.54 ml/min Low 50-250 [facility] Comment on above: Order Comment: PATIE NT IS VERY AGGRESSIVE,PAN SILVA RN ASKED THAT WEDONT WAKE HER. SPOKE TO JAY RN, SHE WILL CALL ONCE PATIENTIS AWAKE AND WE ARE ABLE TO TRY HER Performed By: #### L 500.2500, L100.0100 ####[facility] [address] [place], [address] GAP 13 Normal 5-15 [facility] Comment on above: Order Comment: PATIE NT IS VERY AGGRESSIVE,PAN SILVA RN ASKED THAT WEDONT WAKE HER. SPOKE TO JAY RN, SHE WILL CALL ONCE PATIENTIS AWAKE AND WE ARE ABLE TO TRY HER Performed By: #### L 500.2500, L100.0100 ####[facility] [address] [place], [address] GFR/1.73 sq M.predicted among non-blacks MDRD (S/P/Bld) [Vol rate/Area] 76 mL/min/{1.73_m2} Normal >60 [facility] Comment on above: Order Comment: PATIE NT IS VERY AGGRESSIVE,PAN SILVA RN ASKED THAT [place] HER. SPOKE TO JAY RN, SHE WILL CALL ONCE PATIENTIS AWAKE AND WE ARE ABLE TO TRY HER Result Comment: mL/m in/1.73m2 CKD-EPI Creatinine Equation (2020) Performed By: #### L 500.2500, L100.0100 ####[facility] [address] [place], [address] Glucose [Mass/Vol] 141 mg/dL High 70-99 [facility] Comment on above: Order Comment: PATIE NT IS VERY AGGRESSIVE,PAN SILVA RN ASKED THAT [place] HER. SPOKE TO JAY RN, SHE WILL CALL ONCE PATIENTIS AWAKE AND WE ARE ABLE TO TRY HER Performed By: #### L 500.2500, L100.0100 ####[facility] [address] [place], [address] Potassium [Moles/Vol] 4.0 mmol/L Normal 3.3-5.1 [facility] Comment on above: Order Comment: PATIE NT IS VERY AGGRESSIVE,PAN WINDOWS APPLICATION PACKAGER ASKED THAT [place] HER. SPOKE TO JAY RN, SHE WILL CALL ONCE PATIENTIS AWAKE AND WE ARE ABLE TO TRY HER Performed By: #### L 500.2500, L100.0100 ####[facility] [address] [place], [place], [phone] Sodium [Moles/Vol] 137 mmol/L Normal 133-145 [facility] Comment on above: Order Comment: PATIE NT IS VERY AGGRESSIVE,PAN SILVA RN ASKED THAT [place] HER. SPOKE TO JAY RN, SHE WILL CALL ONCE PATIENTIS AWAKE AND WE ARE ABLE TO TRY HER Performed By: #### L 500.2500, L100.0100 ####[facility] [address] [place], [phone] Urea nitrogen [Mass/Vol] 18 mg/dL Normal 4-19 [facility] Comment on above: Order Comment: PATIE NT IS VERY AGGRESSIVE,PAN SILVA RN ASKED THAT [place] HER. SPOKE TO JAY RN, SHE WILL CALL ONCE PATIENTIS AWAKE AND WE ARE ABLE TO TRY HER Performed By: #### L 500.2500, L100.0100 ####[facility] [address] [place], [place], [phone] CBC W/Diff, Automatedon 09-0 6-2024 Absolute Lymph 1.13 X10 3/uL Normal 0.83-4.51 [facility] Comment on above: Order Comment: PATIE NT IS VERY AGGRESSIVE,PAN SILVA RN ASKED THAT [place] HER. SPOKE TO JAY RN, SHE WILL CALL ONCE PATIENTIS AWAKE AND WE ARE ABLE TO TRY HER Performed By: #### L 500.2500, L100.0100 ####[facility] [address] [place], [address] Absolute Neut 5.5 X10 3/uL Normal 2.0-7.7 [facility] Comment on above: Order Comment: PATIE NT IS VERY AGGRESSIVE,PAN SILVA RN ASKED THAT [place] HER. SPOKE TO JAY RN, SHE WILL CALL ONCE PATIENTIS AWAKE AND WE ARE ABLE TO TRY HER Performed By: #### L 500.2500, L100.0100 ####[facility] [address] [place], [address] Basophils/100 WBC (Bld) 0.4 % Normal 0-1 [facility] Comment on above: Order Comment: PATIE NT IS VERY AGGRESSIVE,PAN SILVA RN ASKED THAT [place] HER. SPOKE TO JAY RN, SHE WILL CALL ONCE PATIENTIS AWAKE AND WE ARE ABLE TO TRY HER Performed By: #### L 500.2500, L100.0100 ####[facility] [address] [place], [address] Eosinophils/100 WBC (Bld) 2.0 % Normal 0-5 [facility] Comment on above: Order Comment: PATIE NT IS VERY AGGRESSIVE,PAN SILVA RN ASKED THAT [place] HER. SPOKE TO JAY RN, SHE WILL CALL ONCE PATIENTIS AWAKE AND WE ARE ABLE TO TRY HER Performed By: #### L 500.2500, L100.0100 ####[facility] [address] [place], [address] Erythrocyte distribution width (RBC) [Ratio] 15.9 % High 11.6-14.6 [facility] Comment on above: Order Comment: PATIE NT IS VERY AGGRESSIVE,PAN SILVA RN ASKED THAT [place] HER. SPOKE TO JAY RN, SHE WILL CALL ONCE PATIENTIS AWAKE AND WE ARE ABLE TO TRY HER Performed By: #### L 500.2500, L100.0100 ####[facility] [address] [place], [address] Hematocrit (Bld) [Volume fraction] 37.0 % Normal 37-47 [facility] Comment on above: Order Comment: PATIE NT IS VERY AGGRESSIVE,PAN SILVA RN ASKED THAT [place] HER. SPOKE TO JAY RN, SHE WILL CALL ONCE PATIENTIS AWAKE AND WE ARE ABLE TO TRY HER Performed By: #### L 500.2500, L100.0100 ####[facility] [address] [place], [address] Hemoglobin (Bld) [Mass/Vol] 11.7 g/dL Low 12.0-15.0 [facility] Comment on above: Order Comment: PATIE NT IS VERY AGGRESSIVE,PAN SILVA RN ASKED THAT [place] HER. SPOKE TO JAY RN, SHE WILL CALL ONCE PATIENTIS AWAKE AND WE ARE ABLE TO TRY HER Performed By: #### L 500.2500, L100.0100 ####[facility] [address] [place], [address] IG% 0.700 Normal 0.0-0.9 [facility] Comment on above: Order Comment: PATIE NT IS VERY AGGRESSIVE,PAN SILVA RN ASKED THAT [place] HER. SPOKE TO JAY RN, SHE WILL CALL ONCE PATIENTIS AWAKE AND WE ARE ABLE TO TRY HER Result Comment: IG% - Immature Granulocytes (promyelocytes, myelocytes andmetamyelocytes) > 1% indicates that a LEFT SHIFT is Present. Performed By: #### L 500.2500, L100.0100 ####[facility] [address] [place], [address] Lymphocytes/100 WBC (Bld) 14.7 % Low 19-41 [facility] Comment on above: Order Comment: PATIE NT IS VERY AGGRESSIVE,PAN SILVA RN ASKED THAT [place] HER. SPOKE TO JAY RN, SHE WILL CALL ONCE PATIENTIS AWAKE AND WE ARE ABLE TO TRY HER Performed By: #### L 500.2500, L100.0100 ####[facility] [address] [place], [address] MCH (RBC) [Entitic mass] 28.2 pg Normal 27.0-32.0 [facility] Comment on above: Order Comment: PATIE NT IS VERY AGGRESSIVE,PAN SILVA RN ASKED THAT [place] HER. SPOKE TO JAY RN, SHE WILL CALL ONCE PATIENTIS AWAKE AND WE ARE ABLE TO TRY HER Performed By: #### L 500.2500, L100.0100 ####[facility] [address] [place], [address] MCHC (RBC) [Mass/Vol] 31.6 g/dL Low 32-36 [facility] Comment on above: Order Comment: PATIE NT IS VERY AGGRESSIVE,PAN SILVA RN ASKED THAT [place] HER. SPOKE TO JAY RN, SHE WILL CALL ONCE PATIENTIS AWAKE AND WE ARE ABLE TO TRY HER Performed By: #### L 500.2500, L100.0100 ####[facility] [address] [place], [address] MCV (RBC) [Entitic vol] 89.2 fL Normal 81-99 [facility] Comment on above: Order Comment: PATIE NT IS VERY AGGRESSIVE,PAN SILVA RN ASKED THAT [place] HER. SPOKE TO JAY RN, SHE WILL CALL ONCE PATIENTIS AWAKE AND WE ARE ABLE TO TRY HER Performed By: #### L 500.2500, L100.0100 ####[facility] [address] [place], [address] Monocytes/100 WBC (Bld) 10.8 % High 0-10 [facility] Comment on above: Order Comment: PATIE NT IS VERY AGGRESSIVE,PAN SILVA RN ASKED THAT [place] HER. SPOKE TO JAY RN, SHE WILL CALL ONCE PATIENTIS AWAKE AND WE ARE ABLE TO TRY HER Performed By: #### L 500.2500, L100.0100 ####[facility] [address] [place], [address] Neutrophils/100 WBC (Bld) 71.4 % High 47-70 [facility] Comment on above: Order Comment: PATIE NT IS VERY AGGRESSIVE,PAN SILVA RN ASKED THAT [place] HER. SPOKE TO JAY RN, SHE WILL CALL ONCE PATIENTIS AWAKE AND WE ARE ABLE TO TRY HER Performed By: #### L 500.2500, L100.0100 ####[facility] [address] [place], [address] Nucleated RBC (Bld) [#/Vol] 0 10*3/uL Normal 0-5 [facility] Comment on above: Order Comment: PATIE NT IS VERY AGGRESSIVE,PAN SILVA RN ASKED THAT [place] HER. SPOKE TO JAY RN, SHE WILL CALL ONCE PATIENTIS AWAKE AND WE ARE ABLE TO TRY HER Performed By: #### L 500.2500, L100.0100 ####[facility] [address] [place], [address] Platelet mean volume (Bld) [Entitic vol] 8.7 fL Normal 6.2-12.0 [facility] Comment on above: Order Comment: PATIE NT IS VERY AGGRESSIVE,PAN SILVA RN ASKED THAT [place] HER. SPOKE TO JAY RN, SHE WILL CALL ONCE PATIENTIS AWAKE AND WE ARE ABLE TO TRY HER Performed By: #### L 500.2500, L100.0100 ####[facility] [address] [place], [address] Platelets (Bld) [#/Vol] 338 10*3/uL Normal 150-450 [facility] Comment on above: Order Comment: PATIE NT IS VERY AGGRESSIVE,PAN SILVA RN ASKED THAT [place] HER. SPOKE TO JAY RN, SHE WILL CALL ONCE PATIENTIS AWAKE AND WE ARE ABLE TO TRY HER Performed By: #### L 500.2500, L100.0100 ####[facility] [address] [place], [address] RBC (Bld) [#/Vol] 4.15 10*6/uL Low 4.2-5.4 [facility] Comment on above: Order Comment: PATIE NT IS VERY AGGRESSIVE,PAN SILVA RN ASKED THAT [place] HER. SPOKE TO JAY RN, SHE WILL CALL ONCE PATIENTIS AWAKE AND WE ARE ABLE TO TRY HER Performed By: #### L 500.2500, L100.0100 ####[facility] [address] [place], [address] RDW SD 52.6 fl High 35.1-43.9 [facility] Comment on above: Order Comment: PATIE NT IS VERY AGGRESSIVE,PAN SILVA RN ASKED THAT [place] HER. SPOKE TO JAY RN, SHE WILL CALL ONCE PATIENTIS AWAKE AND WE ARE ABLE TO TRY HER Performed By: #### L 500.2500, L100.0100 ####[facility] [address] [place], [address] WBC (Bld) [#/Vol] 7.7 10*3/uL Normal 4.4-11.0 [facility] Comment on above: Order Comment: PATIE NT IS VERY AGGRESSIVE,PAN SILVA RN ASKED THAT [place] HER. SPOKE TO JAY RN, SHE WILL CALL ONCE PATIENTIS AWAKE AND WE ARE ABLE TO TRY HER Performed By: #### L 500.2500, L100.0100 ####[facility] [address] [place], [address] Basic Metabolic Profile (BMP )on 02-17-2025 BUN/CRE 23.8 RATIO High 10-20 [facility] Comment on above: Performed By: #### L 100.0100, L500.2500 ####[facility] [address] [place], [address] Calcium [Mass/Vol] 9.1 mg/dL Normal 7.6-11.0 [facility] Comment on above: Performed By: #### L 100.0100, L500.2500 ####[facility] [address] [place], [address] Chloride [Moles/Vol] 108 mmol/L Normal 98-108 [facility] Comment on above: Performed By: #### L 100.0100, L500.2500 ####[facility] [address] [place], [address] CO2 [Moles/Vol] 21.0 mmol/L Normal 21.0-32.0 [facility] Comment on above: Performed By: #### L 100.0100, L500.2500 ####[facility] [address] [place], [address] Creatinine [Mass/Vol] 0.69 mg/dL Low 0.70-1.20 [facility] Comment on above: Performed By: #### L 100.0100, L500.2500 ####[facility] [address] [place], [address] ECRCL 45.54 ml/min Low 50-250 [facility] Comment on above: Performed By: #### L 100.0100, L500.2500 ####[facility] [address] [place], [address] GAP 11 Normal 5-15 [facility] Comment on above: Performed By: #### L 100.0100, L500.2500 ####[facility] [address] [place], [address] GFR/1.73 sq M.predicted among non-blacks MDRD (S/P/Bld) [Vol rate/Area] 86 mL/min/{1.73_m2} Normal >60 [facility] Comment on above: Result Comment: mL/m in/1.73m2 CKD-EPI Creatinine Equation (2020) Performed By: #### L 100.0100, L500.2500 ####[facility] [address] [place], [address] Glucose [Mass/Vol] 112 mg/dL High 70-99 [facility] Comment on above: Performed By: #### L 100.0100, L500.2500 ####[facility] [address] [place], [address] Potassium [Moles/Vol] 3.7 mmol/L Normal 3.3-5.1 [facility] Comment on above: Performed By: #### L 100.0100, L500.2500 ####[facility] [address] [place], [address] Sodium [Moles/Vol] 141 mmol/L Normal 133-145 [facility] Comment on above: Performed By: #### L 100.0100, L500.2500 ####[facility] [address] [place], [address] Urea nitrogen [Mass/Vol] 16 mg/dL Normal 4-19 [facility] Comment on above: Performed By: #### L 100.0100, L500.2500 ####[facility] [address] [place], [address] CBC W/Diff, Automatedon 09-0 5-2024 Absolute Lymph 1.55 X10 3/uL Normal 0.83-4.51 [facility] Comment on above: Performed By: #### L 100.0100, L500.2500 ####[facility] [address] [place], [address] Absolute Neut 4.6 X10 3/uL Normal 2.0-7.7 [facility] Comment on above: Performed By: #### L 100.0100, L500.2500 ####[facility] [address] [place], [address] Basophils/100 WBC (Bld) 0.4 % Normal 0-1 [facility] Comment on above: Performed By: #### L 100.0100, L500.2500 ####[facility] [address] [place], [address] Eosinophils/100 WBC (Bld) 3.1 % Normal 0-5 [facility] Comment on above: Performed By: #### L 100.0100, L500.2500 ####[facility] [address] [place], [address] Erythrocyte distribution width (RBC) [Ratio] 15.9 % High 11.6-14.6 [facility] Comment on above: Performed By: #### L 100.0100, L500.2500 ####[facility] [address] [place], [address] Hematocrit (Bld) [Volume fraction] 35.4 % Low 37-47 [facility] Comment on above: Performed By: #### L 100.0100, L500.2500 ####[facility] [address] [place], [address] Hemoglobin (Bld) [Mass/Vol] 11.3 g/dL Low 12.0-15.0 [facility] Comment on above: Performed By: #### L 100.0100, L500.2500 ####[facility] [address] [place], [address] IG% 0.500 Normal 0.0-0.9 [facility] Comment on above: Result Comment: IG% - Immature Granulocytes (promyelocytes, myelocytes andmetamyelocytes) > 1% indicates that a LEFT SHIFT is Present. Performed By: #### L 100.0100, L500.2500 ####[facility] [address] [place], [address] Lymphocytes/100 WBC (Bld) 21.0 % Normal 19-41 [facility] Comment on above: Performed By: #### L 100.0100, L500.2500 ####[facility] [address] [place], [address] MCH (RBC) [Entitic mass] 28.3 pg Normal 27.0-32.0 [facility] Comment on above: Performed By: #### L 100.0100, L500.2500 ####[facility] [address] [place], [address] MCHC (RBC) [Mass/Vol] 31.9 g/dL Low 32-36 [facility] Comment on above: Performed By: #### L 100.0100, L500.2500 ####[facility] [address] [place], [address] MCV (RBC) [Entitic vol] 88.7 fL Normal 81-99 [facility] Comment on above: Performed By: #### L 100.0100, L500.2500 ####[facility] [address] [place], [address] Monocytes/100 WBC (Bld) 13.3 % High 0-10 [facility] Comment on above: Performed By: #### L 100.0100, L500.2500 ####[facility] [address] [place], [address] Neutrophils/100 WBC (Bld) 61.7 % Normal 47-70 [facility] Comment on above: Performed By: #### L 100.0100, L500.2500 ####[facility] [address] [place], [address] Nucleated RBC (Bld) [#/Vol] 0 10*3/uL Normal 0-5 [facility] Comment on above: Performed By: #### L 100.0100, L500.2500 ####[facility] [address] [place], [address] Platelet mean volume (Bld) [Entitic vol] 9.1 fL Normal 6.2-12.0 [facility] Comment on above: Performed By: #### L 100.0100, L500.2500 ####[facility] [address] [place], [address] Platelets (Bld) [#/Vol] 316 10*3/uL Normal 150-450 [facility] Comment on above: Performed By: #### L 100.0100, L500.2500 ####[facility] [address] [place], [address] RBC (Bld) [#/Vol] 3.99 10*6/uL Low 4.2-5.4 [facility] Comment on above: Performed By: #### L 100.0100, L500.2500 ####[facility] [address] [place], [address] RDW SD 52.5 fl High 35.1-43.9 [facility] Comment on above: Performed By: #### L 100.0100, L500.2500 ####[facility] [address] [place], [address] WBC (Bld) [#/Vol] 7.4 10*3/uL Normal 4.4-11.0 [facility] Comment on above: Performed By: #### L 100.0100, L500.2500 ####[facility] [address] [place], [address] Basic Metabolic Profile (BMP )on 02-16-2025 BUN/CRE 23.8 RATIO High 10-20 [facility] Comment on above: Performed By: #### L 500.2500, L100.0100 ####[facility] [address] [place], [address] Calcium [Mass/Vol] 9.4 mg/dL Normal 7.6-11.0 [facility] Comment on above: Performed By: #### L 500.2500, L100.0100 ####[facility] [address] [place], [address] Chloride [Moles/Vol] 104 mmol/L Normal 98-108 [facility] Comment on above: Performed By: #### L 500.2500, L100.0100 ####[facility] [address] [place], [address] CO2 [Moles/Vol] 22.7 mmol/L Normal 21.0-32.0 [facility] Comment on above: Performed By: #### L 500.2500, L100.0100 ####[facility] [address] [place], [address] Creatinine [Mass/Vol] 0.88 mg/dL Normal 0.70-1.20 [facility] Comment on above: Performed By: #### L 500.2500, L100.0100 ####[facility] [address] [place], [address] ECRCL 41.40 ml/min Low 50-250 [facility] Comment on above: Performed By: #### L 500.2500, L100.0100 ####[facility] [address] [place], [address] GAP 13 Normal 5-15 [facility] Comment on above: Performed By: #### L 500.2500, L100.0100 ####[facility] [address] [place], [address] GFR/1.73 sq M.predicted among non-blacks MDRD (S/P/Bld) [Vol rate/Area] 65 mL/min/{1.73_m2} Normal >60 [facility] Comment on above: Result Comment: mL/m in/1.73m2 CKD-EPI Creatinine Equation (2020) Performed By: #### L 500.2500, L100.0100 ####[facility] [address] [place], [address] Glucose [Mass/Vol] 134 mg/dL High 70-99 [facility] Comment on above: Performed By: #### L 500.2500, L100.0100 ####[facility] [address] [place], [address] Potassium [Moles/Vol] 3.7 mmol/L Normal 3.3-5.1 [facility] Comment on above: Performed By: #### L 500.2500, L100.0100 ####[facility] [address] [place], [address] Sodium [Moles/Vol] 139 mmol/L Normal 133-145 [facility] Comment on above: Performed By: #### L 500.2500, L100.0100 ####[facility] [address] [place], [address] Urea nitrogen [Mass/Vol] 21 mg/dL High 4-19 [facility] Comment on above: Performed By: #### L 500.2500, L100.0100 ####[facility] [address] [place], [address] CBC W/Diff, Automatedon 09-0 4-2025 Absolute Lymph 1.16 X10 3/uL Normal 0.83-4.51 [facility] Comment on above: Performed By: #### L 500.2500, L100.0100 ####[facility] [address] [place], [address] Absolute Neut 5.3 X10 3/uL Normal 2.0-7.7 [facility] Comment on above: Performed By: #### L 500.2500, L100.0100 ####[facility] [address] [place], [address] Basophils/100 WBC (Bld) 0.3 % Normal 0-1 [facility] Comment on above: Performed By: #### L 500.2500, L100.0100 ####[facility] [address] [place], [address] Eosinophils/100 WBC (Bld) 2.3 % Normal 0-5 [facility] Comment on above: Performed By: #### L 500.2500, L100.0100 ####[facility] [address] [place], [address] Erythrocyte distribution width (RBC) [Ratio] 16.4 % High 11.6-14.6 [facility] Comment on above: Performed By: #### L 500.2500, L100.0100 ####[facility] [address] [place], [address] Hematocrit (Bld) [Volume fraction] 38.3 % Normal 37-47 [facility] Comment on above: Performed By: #### L 500.2500, L100.0100 ####[facility] [address] [place], [address] Hemoglobin (Bld) [Mass/Vol] 12.0 g/dL Normal 12.0-15.0 [facility] Comment on above: Performed By: #### L 500.2500, L100.0100 ####[facility] [address] [place], [address] IG% 0.600 Normal 0.0-0.9 [facility] Comment on above: Result Comment: IG% - Immature Granulocytes (promyelocytes, myelocytes andmetamyelocytes) > 1% indicates that a LEFT SHIFT is Present. Performed By: #### L 500.2500, L100.0100 ####[facility] [address] [place], [address] Lymphocytes/100 WBC (Bld) 14.9 % Low 19-41 [facility] Comment on above: Performed By: #### L 500.2500, L100.0100 ####[facility] [address] [place], [address] MCH (RBC) [Entitic mass] 28.1 pg Normal 27.0-32.0 [facility] Comment on above: Performed By: #### L 500.2500, L100.0100 ####[facility] [address] [place], [address] MCHC (RBC) [Mass/Vol] 31.3 g/dL Low 32-36 [facility] Comment on above: Performed By: #### L 500.2500, L100.0100 ####[facility] [address] [place], [address] MCV (RBC) [Entitic vol] 89.7 fL Normal 81-99 [facility] Comment on above: Performed By: #### L 500.2500, L100.0100 ####[facility] [address] [place], [address] Monocytes/100 WBC (Bld) 14.1 % High 0-10 [facility] Comment on above: Performed By: #### L 500.2500, L100.0100 ####[facility] [address] [place], [address] Neutrophils/100 WBC (Bld) 67.8 % Normal 47-70 [facility] Comment on above: Performed By: #### L 500.2500, L100.0100 ####[facility] [address] [place], [address] Nucleated RBC (Bld) [#/Vol] 0 10*3/uL Normal 0-5 [facility] Comment on above: Performed By: #### L 500.2500, L100.0100 ####[facility] [address] [place], [address] Platelet mean volume (Bld) [Entitic vol] 8.9 fL Normal 6.2-12.0 [facility] Comment on above: Performed By: #### L 500.2500, L100.0100 ####[facility] [address] [place], [address] Platelets (Bld) [#/Vol] 328 10*3/uL Normal 150-450 [facility] Comment on above: Performed By: #### L 500.2500, L100.0100 ####[facility] [address] [place], [address] RBC (Bld) [#/Vol] 4.27 10*6/uL Normal 4.2-5.4 [facility] Comment on above: Performed By: #### L 500.2500, L100.0100 ####[facility] [address] [place], [address] RDW SD 53.4 fl High 35.1-43.9 [facility] Comment on above: Performed By: #### L 500.2500, L100.0100 ####[facility] [address] [place], [address] WBC (Bld) [#/Vol] 7.8 10*3/uL Normal 4.4-11.0 [facility] Comment on above: Performed By: #### L 500.2500, L100.0100 ####[facility] [address] [place], [address] Basic Metabolic Profile (BMP )on 02-15-2025 BUN/CRE 17.5 RATIO Normal 10-20 [facility] Comment on above: Performed By: #### L 500.2500, L100.0100 ####[facility] [address] [place], [address] Calcium [Mass/Vol] 8.9 mg/dL Normal 7.6-11.0 [facility] Comment on above: Performed By: #### L 500.2500, L100.0100 ####[facility] [address] [place], [address] Chloride [Moles/Vol] 103 mmol/L Normal 98-108 [facility] Comment on above: Performed By: #### L 500.2500, L100.0100 ####[facility] [address] [place], [address] CO2 [Moles/Vol] 21.1 mmol/L Normal 21.0-32.0 [facility] Comment on above: Performed By: #### L 500.2500, L100.0100 ####[facility] [address] [place], [address] Creatinine [Mass/Vol] 0.94 mg/dL Normal 0.70-1.20 [facility] Comment on above: Performed By: #### L 500.2500, L100.0100 ####[facility] [address] [place], [address] ECRCL 38.76 ml/min Low 50-250 [facility] Comment on above: Performed By: #### L 500.2500, L100.0100 ####[facility] [address] [place], [address] GAP 13 Normal 5-15 [facility] Comment on above: Performed By: #### L 500.2500, L100.0100 ####[facility] [address] [place], [address] GFR/1.73 sq M.predicted among non-blacks MDRD (S/P/Bld) [Vol rate/Area] 60 mL/min/{1.73_m2} Normal >60 [facility] Comment on above: Result Comment: mL/m in/1.73m2 CKD-EPI Creatinine Equation (2020) Performed By: #### L 500.2500, L100.0100 ####[facility] [address] [place], [address] Glucose [Mass/Vol] 82 mg/dL Normal 70-99 [facility] Comment on above: Performed By: #### L 500.2500, L100.0100 ####[facility] [address] [place], [address] Potassium [Moles/Vol] 3.6 mmol/L Normal 3.3-5.1 [facility] Comment on above: Performed By: #### L 500.2500, L100.0100 ####[facility] [address] [place], [address] Sodium [Moles/Vol] 137 mmol/L Normal 133-145 [facility] Comment on above: Performed By: #### L 500.2500, L100.0100 ####[facility] [address] [place], [address] Urea nitrogen [Mass/Vol] 17 mg/dL Normal 4-19 [facility] Comment on above: Performed By: #### L 500.2500, L100.0100 ####[facility] [address] [place], [address] CBC W/Diff, Automatedon 09-0 3-5 Absolute Lymph 1.30 X10 3/uL Normal 0.83-4.51 [facility] Comment on above: Performed By: #### L 500.2500, L100.0100 ####[facility] [address] [place], [address] Absolute Neut 5.0 X10 3/uL Normal 2.0-7.7 [facility] Comment on above: Performed By: #### L 500.2500, L100.0100 ####[facility] [address] [place], [address] Basophils/100 WBC (Bld) 0.4 % Normal 0-1 [facility] Comment on above: Performed By: #### L 500.2500, L100.0100 ####[facility] [address] [place], [address] Eosinophils/100 WBC (Bld) 1.8 % Normal 0-5 [facility] Comment on above: Performed By: #### L 500.2500, L100.0100 ####[facility] [address] [place], [address] Erythrocyte distribution width (RBC) [Ratio] 16.4 % High 11.6-14.6 [facility] Comment on above: Performed By: #### L 500.2500, L100.0100 ####[facility] [address] [place], [address] Hematocrit (Bld) [Volume fraction] 36.3 % Low 37-47 [facility] Comment on above: Performed By: #### L 500.2500, L100.0100 ####[facility] [address] [place], [address] Hemoglobin (Bld) [Mass/Vol] 11.5 g/dL Low 12.0-15.0 [facility] Comment on above: Performed By: #### L 500.2500, L100.0100 ####[facility] [address] [place], [address] IG% 0.500 Normal 0.0-0.9 [facility] Comment on above: Result Comment: IG% - Immature Granulocytes (promyelocytes, myelocytes andmetamyelocytes) > 1% indicates that a LEFT SHIFT is Present. Performed By: #### L 500.2500, L100.0100 ####[facility] [address] [place], [address] Lymphocytes/100 WBC (Bld) 16.8 % Low 19-41 [facility] Comment on above: Performed By: #### L 500.2500, L100.0100 ####[facility] [address] [place], [address] MCH (RBC) [Entitic mass] 28.2 pg Normal 27.0-32.0 [facility] Comment on above: Performed By: #### L 500.2500, L100.0100 ####[facility] [address] [place], [address] MCHC (RBC) [Mass/Vol] 31.7 g/dL Low 32-36 [facility] Comment on above: Performed By: #### L 500.2500, L100.0100 ####[facility] [address] [place], [address] MCV (RBC) [Entitic vol] 89.0 fL Normal 81-99 [facility] Comment on above: Performed By: #### L 500.2500, L100.0100 ####[facility] [address] [place], [address] Monocytes/100 WBC (Bld) 16.6 % High 0-10 [facility] Comment on above: Performed By: #### L 500.2500, L100.0100 ####[facility] [address] [place], [address] Neutrophils/100 WBC (Bld) 63.9 % Normal 47-70 [facility] Comment on above: Performed By: #### L 500.2500, L100.0100 ####[facility] [address] [place], [address] Nucleated RBC (Bld) [#/Vol] 0 10*3/uL Normal 0-5 [facility] Comment on above: Performed By: #### L 500.2500, L100.0100 ####[facility] [address] [place], [address] Platelet mean volume (Bld) [Entitic vol] 8.6 fL Normal 6.2-12.0 [facility] Comment on above: Performed By: #### L 500.2500, L100.0100 ####[facility] [address] [place], [address] Platelets (Bld) [#/Vol] 279 10*3/uL Normal 150-450 [facility] Comment on above: Performed By: #### L 500.2500, L100.0100 ####[facility] [address] [place], [address] RBC (Bld) [#/Vol] 4.08 10*6/uL Low 4.2-5.4 [facility] Comment on above: Performed By: #### L 500.2500, L100.0100 ####[facility] [address] [place], [address] RDW SD 53.1 fl High 35.1-43.9 [facility] Comment on above: Performed By: #### L 500.2500, L100.0100 ####[facility] [address] [place], [place], [address] WBC (Bld) [#/Vol] 7.8 10*3/uL Normal 4.4-11.0 [facility] Comment on above: Performed By: #### L 500.2500, L100.0100 ####[facility] [address] [place], [place], [id number] Electrocardiogram reportOrde red By: Yunior Desai on 02-15-2025 EKG study [facility] Work Phone: [phone] Lead EKGon 02-14-2025 12 Lead EKG Normal [facility] Absolute lymphocyte countOrd ered By: Arya Gannon on 02-14-2025 Lymphocytes Auto (Unsp spec) [#/Vol] 1.18 10*3/uL 0.83-4.51 [facility] Activated partial thrombopla stin time (aPTT) in platelet poor plasma by coagulation aOrdered By: Arya Gannon on 02-14-2025 aPTT Coag (PPP) [Time] 29.6 s 24.1-36.2 [facility] Anion gap in Serum or Plasma Ordered By: Arya Gannon on 02-14-2025 Anion gap [Moles/Vol] 12 mmol/L 5-15 [facility] Automated lymphocyte count a s percentage of total leukocytesOrdered By: Arya Gannon on 02-14-2025 Lymphocytes/100 WBC Auto (Unsp spec) 11.8 % Low 19-41 [facility] BUN/creatinine ratioOrdered By: Arya Gannon on 02-14-2025 Urea nitrogen/Creatinine [Mass ratio] 19.4 mg/mg 10-20 [facility] Basophil percentageOrdered B y: Arya Gannon on 02-14-2025 Basophils/100 WBC (Bld) 0.4 % 0-1 [facility] Bilirubin Test strip Ql (U)O rdered By: Arya Gannon on 02-14-2025 Bilirubin Ql (U) Negative Negative [facility] Bilirubin, totalOrdered By: Arya Gannon on 02-14-2025 Bilirubin [Mass/Vol] 0.56 mg/dL 0.00-1.30 [facility] CBC W/Diff, Automatedon Absolute Lymph 1.18 X10 3/uL Normal 0.83-4.51 [facility] Comment on above: Performed By: #### L 503.6005, L300.4310, L100.0100, L300.3900, L500.4050, L501.2450 ####[facility] [address] [place], [address] Absolute Neut 7.4 X10 3/uL Normal 2.0-7.7 [facility] Comment on above: Performed By: #### L 503.6005, L300.4310, L100.0100, L300.3900, L500.4050, L501.2450 ####[facility] [address] [place], [address] Basophils/100 WBC (Bld) 0.4 % Normal 0-1 [facility] Comment on above: Performed By: #### L 503.6005, L300.4310, L100.0100, L300.3900, L500.4050, L501.2450 ####[facility] [address] [place], [address] Eosinophils/100 WBC (Bld) 0.8 % Normal 0-5 [facility] Comment on above: Performed By: #### L 503.6005, L300.4310, L100.0100, L300.3900, L500.4050, L501.2450 ####[facility] [address] [place], [address] Erythrocyte distribution width (RBC) [Ratio] 16.3 % High 11.6-14.6 [facility] Comment on above: Performed By: #### L 503.6005, L300.4310, L100.0100, L300.3900, L500.4050, L501.2450 ####[facility] [address] [place], [address] Hematocrit (Bld) [Volume fraction] 35.8 % Low 37-47 [facility] Comment on above: Performed By: #### L 503.6005, L300.4310, L100.0100, L300.3900, L500.4050, L501.2450 ####[facility] [address] [place], [address] Hemoglobin (Bld) [Mass/Vol] 11.5 g/dL Low 12.0-15.0 [facility] Comment on above: Performed By: #### L 503.6005, L300.4310, L100.0100, L300.3900, L500.4050, L501.2450 ####[facility] [address] [place], [address] IG% 0.700 Normal 0.0-0.9 [facility] Comment on above: Result Comment: IG% - Immature Granulocytes (promyelocytes, myelocytes andmetamyelocytes) > 1% indicates that a LEFT SHIFT is Present. Performed By: #### L 503.6005, L300.4310, L100.0100, L300.3900, L500.4050, L501.2450 ####[facility] [address] [place], [address] Lymphocytes/100 WBC (Bld) 11.8 % Low 19-41 [facility] Comment on above: Performed By: #### L 503.6005, L300.4310, L100.0100, L300.3900, L500.4050, L501.2450 ####[facility] [address] [place], [address] MCH (RBC) [Entitic mass] 28.5 pg Normal 27.0-32.0 [facility] Comment on above: Performed By: #### L 503.6005, L300.4310, L100.0100, L300.3900, L500.4050, L501.2450 ####[facility] [address] [place], [address] MCHC (RBC) [Mass/Vol] 32.1 g/dL Normal 32-36 [facility] Comment on above: Performed By: #### L 503.6005, L300.4310, L100.0100, L300.3900, L500.4050, L501.2450 ####[facility] [address] [place], [address] MCV (RBC) [Entitic vol] 88.6 fL Normal 81-99 [facility] Comment on above: Performed By: #### L 503.6005, L300.4310, L100.0100, L300.3900, L500.4050, L501.2450 ####[facility] [address] [place], [address] Monocytes/100 WBC (Bld) 12.2 % High 0-10 [facility] Comment on above: Performed By: #### L 503.6005, L300.4310, L100.0100, L300.3900, L500.4050, L501.2450 ####[facility] [address] [place], [address] Neutrophils/100 WBC (Bld) 74.1 % High 47-70 [facility] Comment on above: Performed By: #### L 503.6005, L300.4310, L100.0100, L300.3900, L500.4050, L501.2450 ####[facility] [address] [place], [address] Nucleated RBC (Bld) [#/Vol] 0 10*3/uL Normal 0-5 [facility] Comment on above: Performed By: #### L 503.6005, L300.4310, L100.0100, L300.3900, L500.4050, L501.2450 ####[facility] [address] [place], [address] Platelet mean volume (Bld) [Entitic vol] 8.5 fL Normal 6.2-12.0 [facility] Comment on above: Performed By: #### L 503.6005, L300.4310, L100.0100, L300.3900, L500.4050, L501.2450 ####[facility] [address] [place], [address] Platelets (Bld) [#/Vol] 328 10*3/uL Normal 150-450 [facility] Comment on above: Performed By: #### L 503.6005, L300.4310, L100.0100, L300.3900, L500.4050, L501.2450 ####[facility] [address] [place], [address] RBC (Bld) [#/Vol] 4.04 10*6/uL Low 4.2-5.4 [facility] Comment on above: Performed By: #### L 503.6005, L300.4310, L100.0100, L300.3900, L500.4050, L501.2450 ####[facility] [address] [place], [address] RDW SD 52.9 fl High 35.1-43.9 [facility] Comment on above: Performed By: #### L 503.6005, L300.4310, L100.0100, L300.3900, L500.4050, L501.2450 ####[facility] [address] [place], [address] WBC (Bld) [#/Vol] 10.0 10*3/uL Normal 4.4-11.0 [facility] Comment on above: Performed By: #### L 503.6005, L300.4310, L100.0100, L300.3900, L500.4050, L501.2450 ####[facility] [address] [place], [address] Carbon dioxide, total [Moles /volume] in Central venous bloodOrdered By: Arya Gannon on 02-14-2025 CO2 [Moles/Vol] 23.7 mmol/L 21.0-32.0 [facility] Chest PA and Lateralon 02-14 Chest PA and Lateral Normal [facility] Chloride assayOrdered By: Martín Gannon on 02-14-2025 Chloride [Moles/Vol] 100 mmol/L 98-108 [facility] Comprehensive Metabolic Prof ilon 02-14-2025 Albumin [Mass/Vol] 3.7 g/dL Normal 3.4-4.8 [facility] Comment on above: Performed By: #### L 503.6005, L300.4310, L100.0100, L300.3900, L500.4050, L501.2450 ####[facility] [address] [place], [address] Albumin/Globulin [Mass ratio] 1.2 {ratio} Normal 0.9-2.4 [facility] Comment on above: Performed By: #### L 503.6005, L300.4310, L100.0100, L300.3900, L500.4050, L501.2450 ####[facility] [address] [place], [address] ALK PHOS 150 U/L High 35-104 [facility] Comment on above: Performed By: #### L 503.6005, L300.4310, L100.0100, L300.3900, L500.4050, L501.2450 ####[facility] [address] [place], [address] ALT [Catalytic activity/Vol] 14 U/L Normal <=34 [facility] Comment on above: Performed By: #### L 503.6005, L300.4310, L100.0100, L300.3900, L500.4050, L501.2450 ####[facility] [address] [place], [address] AST [Catalytic activity/Vol] 25 U/L Normal <=31 [facility] Comment on above: Performed By: #### L 503.6005, L300.4310, L100.0100, L300.3900, L500.4050, L501.2450 ####[facility] [address] [place], [address] Bilirubin [Mass/Vol] 0.56 mg/dL Normal 0.00-1.30 [facility] Comment on above: Performed By: #### L 503.6005, L300.4310, L100.0100, L300.3900, L500.4050, L501.2450 ####[facility] [address] [place], [address] BUN/CRE 19.4 RATIO Normal 10-20 [facility] Comment on above: Performed By: #### L 503.6005, L300.4310, L100.0100, L300.3900, L500.4050, L501.2450 ####[facility] [address] [place], [address] Calcium [Mass/Vol] 8.9 mg/dL Normal 7.6-11.0 [facility] Comment on above: Performed By: #### L 503.6005, L300.4310, L100.0100, L300.3900, L500.4050, L501.2450 ####[facility] [address] [place], [address] Chloride [Moles/Vol] 100 mmol/L Normal 98-108 [facility] Comment on above: Performed By: #### L 503.6005, L300.4310, L100.0100, L300.3900, L500.4050, L501.2450 ####[facility] [address] [place], [address] CO2 [Moles/Vol] 23.7 mmol/L Normal 21.0-32.0 [facility] Comment on above: Performed By: #### L 503.6005, L300.4310, L100.0100, L300.3900, L500.4050, L501.2450 ####[facility] [address] [place], [address] Creatinine [Mass/Vol] 0.94 mg/dL Normal 0.70-1.20 [facility] Comment on above: Performed By: #### L 503.6005, L300.4310, L100.0100, L300.3900, L500.4050, L501.2450 ####[facility] [address] [place], [address] ECRCL 40.09 ml/min Low 50-250 [facility] Comment on above: Performed By: #### L 503.6005, L300.4310, L100.0100, L300.3900, L500.4050, L501.2450 ####[facility] [address] [place], [address] GAP 12 Normal 5-15 [facility] Comment on above: Performed By: #### L 503.6005, L300.4310, L100.0100, L300.3900, L500.4050, L501.2450 ####[facility] [address] [place], [address] GFR/1.73 sq M.predicted among non-blacks MDRD (S/P/Bld) [Vol rate/Area] 60 mL/min/{1.73_m2} Normal >60 [facility] Comment on above: Result Comment: mL/m in/1.73m2 CKD-EPI Creatinine Equation (2020) Performed By: #### L 503.6005, L300.4310, L100.0100, L300.3900, L500.4050, L501.2450 ####[facility] [address] [place], [address] Globulin (S) [Mass/Vol] 3.1 g/dL Normal 2.2-4.2 [facility] Comment on above: Performed By: #### L 503.6005, L300.4310, L100.0100, L300.3900, L500.4050, L501.2450 ####[facility] [address] [place], [address] Glucose [Mass/Vol] 92 mg/dL Normal 70-99 [facility] Comment on above: Performed By: #### L 503.6005, L300.4310, L100.0100, L300.3900, L500.4050, L501.2450 ####[facility] [address] [place], [address] Potassium [Moles/Vol] 3.7 mmol/L Normal 3.3-5.1 [facility] Comment on above: Performed By: #### L 503.6005, L300.4310, L100.0100, L300.3900, L500.4050, L501.2450 ####[facility] [address] [place], [address] Sodium [Moles/Vol] 135 mmol/L Normal 133-145 [facility] Comment on above: Performed By: #### L 503.6005, L300.4310, L100.0100, L300.3900, L500.4050, L501.2450 ####[facility] [address] [place], [place], [id number] T PROT 6.9 g/dL Normal 5.9-8.4 [facility] Comment on above: Performed By: #### L 503.6005, L300.4310, L100.0100, L300.3900, L500.4050, L501.2450 ####[facility] [address] [place], [place], [address] Urea nitrogen [Mass/Vol] 18 mg/dL Normal 4-19 [facility] Comment on above: Performed By: #### L 503.6005, L300.4310, L100.0100, L300.3900, L500.4050, L501.2450 ####[facility] [address] [place], [place], [id number] Emergency Department Summary on 02-14-2025 Emergency Department Summary Normal [facility] Eosinophil percentageOrdered By: Arya Gannon on 02-14-2025 Eosinophils/100 WBC (Bld) 0.8 % 0-5 [facility] Erythrocyte distribution wid th ratioOrdered By: Arya ClydeLizeth on 02-14-2025 Erythrocyte distribution width (RBC) [Ratio] 16.3 % High 11.6-14.6 [facility] Erythrocyte distribution wid th standard deviationOrdered By: Arya Niranjanfort [facility] ind[facility] hospitalestefany Stanley on 02-14-2025 Erythrocyte distribution width (RBC) [Ratio] 52.9 fl High 35.1-43.9 [facility] Glomerular filtration rate ( GFR) estimation/1.73 sq m using serum, plasma, or whole bOrdered By: Arya Gannon on 02-14-2025 GFR/1.73 sq M.predicted among non-blacks MDRD (S/P/Bld) [Vol rate/Area] 60 mL/min/{1.73_m2} >60 [facility] H AND P Exam - Hospitaliston 02-14-2025 H&P Exam - Hospitalist Normal [facility] Hematocrit Auto (Bld) [Volum e fraction]Ordered By: Arya Gannon on 02-14-2025 Hematocrit (Bld) [Volume fraction] 35.8 % Low 37-47 [facility] Hemoglobin measurementOrdere d By: Arya Karla on 02-14-2025 Hemoglobin (Bld) [Mass/Vol] 11.5 g/dL Low 12.0-15.0 [facility] Immature granulocytes/100 WB C Auto (Bld)Ordered By: [facility] Hospital[facility] guadalupeLizeth on 02-14-2025 Immature granulocytes/100 WBC (Bld) 0.700 % 0.0-0.9 [facility] Influenza virus A and B and SARS-CoV-2 (COVID-19) and Respiratory syncytial virus RNAOrdered By: [facility] Hospitalmaria guadalupeWheaton Medical CenterLizeth on 02-14-2025 SARS-CoV-2 (COVID-19) RNA ZAID+probe Ql (Unsp spec) [facility] Ketones Test strip Ql (U)Ord ered By: [facility] HospitalrossLizeth on 02-14-2025 Ketones Ql (U) 5 mg/dl High Negative [facility] L501.4021on 02-14-2025 Trop T High Sen 35 ng/L High <=14 [facility] Comment on above: Performed By: #### L 501.4021 ####[facility] [address] [place], [place], [id number] Lactic Acidon 02-14-2025 Lactate [Moles/Vol] 1.3 mmol/L Normal 0.0-2.0 [facility] Comment on above: Order Comment: Y Performed By: #### L 503.6005, L300.4310, L100.0100, L300.3900, L500.4050, L501.2450 ####[facility] [address] [place], [address] Legionella Antigen Urineon 0 02-14-2025 LEGU Normal [facility] Comment on above: Performed By: #### M 300.4500, M300.4600 ####[facility] [address] [place], [address] Lipaseon 02-14-2025 Lipase [Catalytic activity/Vol] 40 U/L Normal 13-75 [facility] Comment on above: Result Comment: [employer] note:LIPASE revised reference range effective 22.New Lipase methodology. Expected to produce lower valuesthan the previous assay method.NEW Reference Range: 13 - 75 U/L Performed By: #### L 503.6005, L300.4310, L100.0100, L300.3900, L500.4050, L501.2450 ####[facility] [address] [place], [address] M100.678on 02-14-2025 M100.678 Pending SARS-CoV-2 (COVID 19) Negative INFLUENZA A Negative INFLUENZA B Negative RSV PCR Negative Normal [facility] Comment on above: Performed By: #### M 100.678, L400.0001 ####[facility] [address] [place], [address] MCV (mean corpuscular volume ) determinationOrdered By: Arya Gannon on 02-14-2025 MCV (RBC) [Entitic vol] 88.6 fL 81-99 [facility] Mean corpuscular hemoglobin (MCH) determinationOrdered By: Aryamisha Gannon on 02-14-2025 MCH (RBC) [Entitic mass] 28.5 pg 27.0-32.0 [facility] Monocyte percentageOrdered B y: Arya Gannon on 02-14-2025 Monocytes/100 WBC (Bld) 12.2 % High 0-10 [facility] Mucus LM Ql (Urine sed)Order ed By: Arya Gannon on 02-14-2025 Mucus Ql (Urine sed) 0 SEEN /hpf [facility] Neutrophil percentageOrdered By: Aryamisha Gannon on 02-14-2025 Neutrophils/100 WBC (Bld) 74.1 % High 47-70 [facility] Nitrite Test strip Ql (U)Ord ered By: Arya Gannon on 02-14-2025 Nitrite Ql (U) Negative Negative [facility] No Panel InformationOrdered By: Arya Gannon on 02-14-2025 25 U/L <32 [facility] Partial Thromboplast Timeon 02-14-2025 aPTT Coag (Bld) [Time] 29.6 s Normal 24.1-36.2 [facility] Comment on above: Performed By: #### L 503.6005, L300.4310, L100.0100, L300.3900, L500.4050, L501.2450 ####[facility] [address] [place], [address] Platelet countOrdered By: Martín Gannon on 02-14-2025 Platelets (Bld) [#/Vol] 328 10*3/uL 150-450 [facility] Potassium measurement (mass/ volume)Ordered By: [facility] on 02-14-2025 Potassium (Unsp spec) [Mass/Vol] 3.7 mmol/L 3.3-5.1 [facility] Protein Test strip Ql (U)Ord ered By: Aryamisha Gannon on 02-14-2025 Protein Ql (U) Negative Negative [facility] Prothrombin Time w/INRon INR Coag (PPP) [Relative time] 0.9 {INR} Normal [facility] Comment on above: Performed By: #### L 503.6005, L300.4310, L100.0100, L300.3900, L500.4050, L501.2450 ####[facility] [address] [place], [address] PT Coag (PPP) [Time] 12.7 s Normal 11.7-14.9 [facility] Comment on above: Performed By: #### L 503.6005, L300.4310, L100.0100, L300.3900, L500.4050, L501.2450 ####[facility] [address] [place], [address] Prothrombin timeOrdered By: Arya Gannon on 02-14-2025 PT Coag (PPP) [Time] 12.7 s 11.7-14.9 [facility] RBC Auto (Bld) [#/Vol]Ordere d By: Arya Gannon on 02-14-2025 RBC (Bld) [#/Vol] 4.04 10*6/uL Low 4.2-5.4 [facility] Serum creatinine measurement (mass/volume)Ordered By: Arya Gannon on 02-14-2025 Creatinine [Mass/Vol] 0.94 mg/dL 0.70-1.20 [facility] Serum globulin measurementOr dered By: Arya Gannon on 02-14-2025 Globulin (S) [Mass/Vol] 3.1 g/dL 2.2-4.2 [facility] Serum glucose measurement (m ass/volume)Ordered By: Arya Gannon on 02-14-2025 Glucose [Mass/Vol] 92 mg/dL 70-99 [facility] Serum or plasma alanine carpio otransferase (ALT) measurementOrdered By: Arya Gannon on 02-14-2025 ALT [Catalytic activity/Vol] 14 U/L <35 [facility] Serum or plasma albumin candice urement (mass/volume)Ordered By: Arya Stanley on 02-14-2025 Albumin [Mass/Vol] 3.7 g/dL 3.4-4.8 [facility] Serum or plasma albumin/glob ulin mass ratioOrdered By: Arya Gannon on 02-14-2025 Albumin/Globulin [Mass ratio] 1.2 {ratio} 0.9-2.4 [facility] Serum or plasma alkaline anthony sphatase measurementOrdered By: Arya Gannon on 02-14-2025 ALP [Catalytic activity/Vol] 150 U/L High 35-104 [facility] Serum or plasma calcium candice urement (mass/volume)Ordered By: Arya Stanley on 02-14-2025 Calcium [Mass/Vol] 8.9 mg/dL 7.6-11.0 [facility] Serum or plasma urea nitroge n measurement (mass/volume)Ordered By: Arya Gannon on 02-14-2025 Urea nitrogen [Mass/Vol] 18 mg/dL 4-19 [facility] Sodium levelOrdered By: Luis Angel Gannon on 02-14-2025 Sodium [Moles/Vol] 135 mmol/L 133-145 [facility] Squamous epithelial cells de tection in urine sediment by light microscopyOrdered By: Arya Gannon on 02-14-2025 Epithelial cells.squamous LM Ql (Urine sed) 0 SEEN /hpf 5-10 [facility] Strep pneumoniae Antig(UR,CS F)on 02-14-2025 STPAG Normal [facility] Comment on above: Performed By: #### M 300.4500, M300.4600 ####[facility] [address] [place], [address] Total proteinOrdered By: Ritchie Gannon on 02-14-2025 Protein [Mass/Vol] 6.9 g/dL 5.9-8.4 [facility] Troponin T HS 2 HRon 025 Trop T High Sen 32 ng/L High <=14 [facility] Comment on above: Performed By: #### L 499.0042 ####[facility] [address] [place], [place], [id number] Troponin T.cardiac [Mass/vol ume] in Serum or Plasma by High sensitivity methodOrdered By: Arya Gannon on 02-14-2025 Troponin T.cardiac High sensitivity method [Mass/Vol] 32 ng/L High <14 [facility] Troponin T.cardiac High sensitivity method [Mass/Vol] 35 ng/L High <14 [facility] Urinalysis, Completeon 02-14 WBC 0-5 SEEN Normal 0-5 [facility] Comment on above: Order Comment: CLEAN CATCH Performed By: #### M 100.678, L400.0001 ####[facility] [address] [place], [address] BACTERIA 0 SEEN Normal None Seen [facility] Comment on above: Order Comment: CLEAN CATCH Performed By: #### M 100.678, L400.0001 ####[facility] [address] [place], [address] EPI,SQUAMOUS 0 SEEN Normal 5-10 [facility] Comment on above: Order Comment: CLEAN CATCH Performed By: #### M 100.678, [id number] ####[facility] [facility] [address] [place], [address] Mucus Ql (Urine sed) 0 SEEN Normal [facility] Comment on above: Order Comment: CLEAN CATCH Performed By: #### M 100.678, L400.0001 ####[facility] [address] [place], [address] RBC 0 SEEN Normal 0-5 [facility] Comment on above: Order Comment: CLEAN CATCH Performed By: #### M 100.678, L400.0001 ####[facility] [address] [place], [address] Urine Legionella pneumophila antigen detectionOrdered By: Liudmila Morin on 02-14-2025 L. pneumophila Ag Ql (U) [facility] Urine clarityOrdered By: Ritchie Gannon on 02-14-2025 Clarity (U) Clear Clear [facility] Urine color determinationOrd ered By: Arya Gannon on 02-14-2025 Color (U) Yellow Yellow [facility] Urine glucose detectionOrder ed By: Arya Gannon on 02-14-2025 Glucose Ql (U) Normal mg/dl Normal [facility] Urine leukocyte esterase det ection by dipstickOrdered By: Arya Gannon on 02-14-2025 Leukocyte esterase Test strip Ql (U) 25 /ul High Negative [facility] Urine pHOrdered By: Arya Acosta on 02-14-2025 pH (U) 6.0 [pH] 5.0 - 8.0 [facility] Urine sediment bacteria coun t by microscopy (number/high power field)Ordered By: Arya Gannon on 02-14-2025 Bacteria LM.HPF (Urine sed) [#/Area] 0 /[HPF] None Seen [facility] Urine specific gravity measu rementOrdered By: [facility] on 02-14-2025 Specific gravity (U) [Rel density] 1.015 1.002-1.03 0 [facility] Urine urobilinogen measureme ntOrdered By: Arya Teressa on 02-14-2025 Urobilinogen Ql (U) Normal mg/dl Normal [facility] White blood cell (WBC) count Ordered By: Arya Gannon on 02-14-2025 WBC (Bld) [#/Vol] 10.0 10*3/uL 4.4-11.0 [facility] White blood cell countOrdere d By: Arya Gannon on 02-14-2025 White blood cell count 0-5 SEEN /hpf 0-5 [facility] OPERATIVE PROCEDURESon 02-02 OPERATIVE PROCEDURES [facility] OPERATIVE REPORT NAME ACCOUNT SEX AGE ADMIT DISCHARGE PT MED. RECORD# NUMBER DATE DATE TYPE SAPNA BULLARD [id number] F 85 01/20/25 01/20/25 2 [id number] ROOM: [facility] DATE OF : 1940 DICTATING PHYSICIAN: Marcos White DATE OF PROCEDURE: January 20, 2025 SURGEON: Marcos White DO SUEDING AND BUFFING MACHINE OPERATOR: None. ANESTHESIOLOGIST: ANESTHETIC: Local. PRE-PROCEDURE DIAGNOSIS: Lumbosacral [...] Marcos White DO 01/20/25 12:08 JOB #: [id number] Transcribed By: tim 01/20/25 13:35 Electronically signed by: E-SIGN: MARCOS WHITE 02/02/25 07:18 Page 2 of 2 SAPNA BULLARD Operative Report Normal [facility] Absolute lymphocyte countOrd ered By: Genevieve Wu on 01-30-2025 Lymphocytes Auto (Unsp spec) [#/Vol] 1.91 10*3/uL 0.83-4.51 [facility] Anion gap in Serum or Plasma Ordered By: Genevieve Wu on 01-30-2025 Anion gap [Moles/Vol] 11 mmol/L 5-15 [facility] Automated lymphocyte count a s percentage of total leukocytesOrdered By: Genevieve Wu on 01-30-2025 Lymphocytes/100 WBC Auto (Unsp spec) 20.1 % - [facility] BUN/creatinine ratioOrdered By: Genevieve Wu on 01-30-2025 Urea nitrogen/Creatinine [Mass ratio] 21.1 mg/mg High 10- [facility] Basophil percentageOrdered B y: Genevieve Galavizdrew on 01-30-2025 Basophils/100 WBC (Bld) 0.2 % 0-1 [facility] Carbon dioxide, total [Moles /volume] in Central venous bloodOrdered By: Abemihirkarleysharon Blackjuanitadrew on 01-30-2025 CO2 [Moles/Vol] 25.1 mmol/L 21.0-32.0 [facility] Chloride assayOrdered By: Abe yasminsharon Blackjuanitadrew on 01-30-2025 Chloride [Moles/Vol] 106 mmol/L 98-108 [facility] Eosinophil percentageOrdered By: mihirbosworthsharon Blackjuanitadrew on 01-30-2025 Eosinophils/100 WBC (Bld) 1.9 % 0-5 [facility] Erythrocyte distribution wid th ratioOrdered By: mihirbosworthsharon Blackjuanitadrew on 01-30-2025 Erythrocyte distribution width (RBC) [Ratio] 16.2 % High 11.6-14.6 [facility] Erythrocyte distribution wid th standard deviationOrdered By: mihirbosworthsharon Blackjuanitadrew on 01-30-2025 Erythrocyte distribution width (RBC) [Ratio] 53.1 fl High 35.1-43.9 [facility] Glomerular filtration rate ( GFR) estimation/1.73 sq m using serum, plasma, or whole bOrdered By: Abehaseeb Blackjuanitadrew on 01-30-2025 GFR/1.73 sq M.predicted among non-blacks MDRD (S/P/Bld) [Vol rate/Area] 63 mL/min/{1.73_m2} >60 [facility] Hematocrit Auto (Bld) [Volum e fraction]Ordered By: Genevieve Wu on 01-30-2025 Hematocrit (Bld) [Volume fraction] 34.7 % Low 37-47 [facility] Hemoglobin measurementOrdere d By: haseeb Wu on 01-30-2025 Hemoglobin (Bld) [Mass/Vol] 10.5 g/dL Low 12.0-15.0 [facility] Immature granulocytes/100 WB C Auto (Bld)Ordered By: mihirbosworthsharon Wu on 01-30-2025 Immature granulocytes/100 WBC (Bld) 1.300 % High 0.0-0.9 [facility] MCV (mean corpuscular volume ) determinationOrdered By: Genevieve Wu on 01-30-2025 MCV (RBC) [Entitic vol] 91.3 fL 81-99 [facility] Mean corpuscular hemoglobin (MCH) determinationOrdered By: Genevieve Blackjuanitadrew on 01-30-2025 MCH (RBC) [Entitic mass] 27.6 pg 27.0-32.0 [facility] Monocyte percentageOrdered B y: Genevieve Wu on 01-30-2025 Monocytes/100 WBC (Bld) 10.3 % High 0-10 [facility] Neutrophil percentageOrdered By: Genevieve Wu on 01-30-2025 Neutrophils/100 WBC (Bld) 66.2 % 47-70 [facility] Platelet countOrdered By: Abe Wu on 01-30-2025 Platelets (Bld) [#/Vol] 331 10*3/uL 150-450 [facility] Potassium measurement (mass/ volume)Ordered By: Genevieve Wu on 01-30-2025 Potassium (Unsp spec) [Mass/Vol] 4.2 mmol/L 3.3-5.1 [facility] RBC Auto (Bld) [#/Vol]Ordere d By: Genevieve Wu on 01-30-2025 RBC (Bld) [#/Vol] 3.80 10*6/uL Low 4.2-5.4 [facility] Serum creatinine measurement (mass/volume)Ordered By: Genevieve Wu on 01-30-2025 Creatinine [Mass/Vol] 0.90 mg/dL 0.70-1.20 [facility] Serum glucose measurement (m ass/volume)Ordered By: Genevieve Wu on 01-30-2025 Glucose [Mass/Vol] 128 mg/dL High 70-99 [facility] Serum or plasma calcium candice urement (mass/volume)Ordered By: Genevieve Wu on 01-30-2025 Calcium [Mass/Vol] 9.1 mg/dL 7.6-11.0 [facility] Serum or plasma urea nitroge n measurement (mass/volume)Ordered By: Genevieve Wu on 01-30-2025 Urea nitrogen [Mass/Vol] 19 mg/dL 4-19 [facility] Sodium levelOrdered By: Gerardo ashley Waynejuanitadrew on 01-30-2025 Sodium [Moles/Vol] 142 mmol/L 133-145 [facility] White blood cell (WBC) count Ordered By: Genevieve Wu on 01-30-2025 WBC (Bld) [#/Vol] 9.5 10*3/uL 4.4-11.0 [facility] C-ARM USAGE 1 HOURon C-ARM USAGE 1 HOUR [place] [address] Patient: SAPNA BULLARD Phone#: : 1940 Age: 85 Gender: F Pt. Type: Out Account: [id number] Location: [facility] Ordering: MARCOS WHITE Exam Date: 01/20/2025/12:02 Family Phys: NICCI LEVINERADHA Charge Code: 081372 Physician: Kimble Order #: [id number] Dose#: 1.85 [id number] PROCEDURE: C-ARM USEAGE 1 HR COMPARISON: [facility], , C-ARM USEAGE 1 HR, 08/11/2024, 10:47. [...] Richardson MD on 01/20/2025 at 13:05 Normal [facility] Absolute lymphocyte countOrd ered By: Genevieve Wu on 01-02-2025 Lymphocytes Auto (Unsp spec) [#/Vol] 1.82 10*3/uL 0.83-4.51 [facility] Absolute neutrophil countOrd ered By: Genevieve Wu on 01-02-2025 Neutrophils (Bld) [#/Vol] 6.3 10*3/uL 2.0-7.7 [facility] Anion gap in Serum or Plasma Ordered By: Genevieve Wu on 01-02-2025 Anion gap [Moles/Vol] 16 mmol/L High 5-15 [facility] Automated lymphocyte count a s percentage of total leukocytesOrdered By: Genevieve Wu on 01-02-2025 Lymphocytes/100 WBC Auto (Unsp spec) 19.0 % 19- [facility] BUN/creatinine ratioOrdered By: Genevieve Wu on 01-02-2025 Urea nitrogen/Creatinine [Mass ratio] 18.7 mg/mg 10-20 [facility] Basophil percentageOrdered B y: Genevieve Wu on 01-02-2025 Basophils/100 WBC (Bld) 0.5 % 0-1 [facility] Bilirubin directOrdered By: Genevieve Wu on 01-02-2025 Bilirubin.direct [Mass/Vol] mg/dL 0.00-0.30 [facility] Bilirubin, totalOrdered By: Genevieve Wu on 01-02-2025 Bilirubin [Mass/Vol] 0.23 mg/dL 0.00-1.30 [facility] Calculated very low density lipoprotein (VLDL) cholesterol measurementOrdered By: Genevieve Wu on 01-02-2025 Calculated very low density lipoprotein (VLDL) cholesterol measurement 38 mg/dL 5-40 [facility] Carbon dioxide, total [Moles /volume] in Central venous bloodOrdered By: Genevieve Wu on 01-02-2025 CO2 [Moles/Vol] 21.7 mmol/L 21.0-32.0 [facility] Chloride assayOrdered By: Abe Wu on 01-02-2025 Chloride [Moles/Vol] 101 mmol/L 98-108 [facility] Eosinophil percentageOrdered By: Genevieve Wu on 01-02-2025 Eosinophils/100 WBC (Bld) 1.6 % 0-5 [facility] Erythrocyte distribution wid th ratioOrdered By: Genevieve Wu on 01-02-2025 Erythrocyte distribution width (RBC) [Ratio] 15.1 % High 11.6-14.6 [facility] Erythrocyte distribution wid th standard deviationOrdered By: Genevieve Wu on 01-02-2025 Erythrocyte distribution width (RBC) [Ratio] 49.0 fl High 35.1-43.9 [facility] Glomerular filtration rate ( GFR) estimation/1.73 sq m using serum, plasma, or whole bOrdered By: Genevieve Wu on 01-02-2025 GFR/1.73 sq M.predicted among non-blacks MDRD (S/P/Bld) [Vol rate/Area] 62 mL/min/{1.73_m2} >60 [facility] Comment on above: mL/min/1.73m2 CKD-EP I Creatinine Equation (2020) Hematocrit Auto (Bld) [Volum e fraction]Ordered By: Genevieve Wu on 01-02-2025 Hematocrit (Bld) [Volume fraction] 39.4 % 37-47 [facility] Hemoglobin measurementOrdere d By: Genevieve Wu on 01-02-2025 Hemoglobin (Bld) [Mass/Vol] 11.9 g/dL Low 12.0-15.0 [facility] Immature granulocytes/100 WB C Auto (Bld)Ordered By: Genevieve Wu on 01-02-2025 Immature granulocytes/100 WBC (Bld) 0.500 % 0.0-0.9 [facility] Comment on above: IG% - Immature Granu locytes (promyelocytes, myelocytes and metamyelocytes) > 1% indicates that a LEFT SHIFT is Present. LDL calc ser/plasOrdered By: Genevieve Wu on 01-02-2025 Cholesterol in LDL [Mass/Vol] 97 mg/dL [facility] Comment on above: Givyokhpac=455-172 m g/dL & Higher Qqmo=485 mg/dL or greater Laboratory - Chemistry and C hemistry - challengeOrdered By: Genevieve Wu on 01-02-2025 AST [Catalytic activity/Vol] 23 U/L <32 [facility] MCV (mean corpuscular volume ) determinationOrdered By: Genevieve Wu on 01-02-2025 MCV (RBC) [Entitic vol] 88.7 fL 81-99 [facility] Mean corpuscular hemoglobin (MCH) determinationOrdered By: Genevieve Wu on 01-02-2025 MCH (RBC) [Entitic mass] 26.8 pg Low 27.0-32.0 [facility] Mean corpuscular hemoglobin concentration (MCHC) determinationOrdered By: Genevieve Wu on 01-02-2025 MCHC (RBC) [Mass/Vol] 30.2 g/dL Low 32-36 [facility] Mean platelet volume determi nationOrdered By: Genevieve Wu on 01-02-2025 Platelet mean volume (Bld) [Entitic vol] 9.2 fL 6.2-12.0 [facility] Monocyte percentageOrdered B y: Genevieve Wu on 01-02-2025 Monocytes/100 WBC (Bld) 12.3 % High 0-10 [facility] Neutrophil percentageOrdered By: Genevieve Wu on 01-02-2025 Neutrophils/100 WBC (Bld) 66.1 % 47-70 [facility] No Panel InformationOrdered By: Genevieve Wu on 01-02-2025 23 U/L <32 [facility] Nucleated red blood cell per centageOrdered By: Genevieve Wu on 01-02-2025 Nucleated RBC/100 WBC (Bld) [Ratio] 0 % 0-5 [facility] Platelet countOrdered By: Abe Wu on 01-02-2025 Platelets (Bld) [#/Vol] 431 10*3/uL 150-450 [facility] Potassium measurement (mass/ volume)Ordered By: Genevieve Wu on 01-02-2025 Potassium (Unsp spec) [Mass/Vol] 3.8 mmol/L 3.3-5.1 [facility] RBC Auto (Bld) [#/Vol]Ordere d By: Genevieve Wu on 01-02-2025 RBC (Bld) [#/Vol] 4.44 10*6/uL 4.2-5.4 [facility] Screening total cholesterol/ high density lipoprotein (HDL) cholesterol ratioOrdered By: Genevieve Wu on 01-02-2025 Cholesterol.total/Cho lesterol in HDL [Mass ratio] 3.62 {ratio} [facility] Serum creatinine measurement (mass/volume)Ordered By: Genevieve Wu on 01-02-2025 Creatinine [Mass/Vol] 0.92 mg/dL 0.70-1.20 [facility] Serum globulin measurementOr dered By: Genevieve Wu on 01-02-2025 Globulin (S) [Mass/Vol] 3.6 g/dL 2.2-4.2 [facility] Serum glucose measurement (m ass/volume)Ordered By: Genevieve Wu on 01-02-2025 Glucose [Mass/Vol] 76 mg/dL 70-99 [facility] Serum or plasma alanine carpio otransferase (ALT) measurementOrdered By: Genevieve Wu on 01-02-2025 ALT [Catalytic activity/Vol] 7 U/L <35 [facility] Serum or plasma albumin candice urement (mass/volume)Ordered By: Genevieve Wu on 01-02-2025 Albumin [Mass/Vol] 4.0 g/dL 3.4-4.8 [facility] Serum or plasma alkaline anthony sphatase measurementOrdered By: Genevieve Wu 01-02-2025 ALP [Catalytic activity/Vol] 150 U/L High 35-104 [facility] Serum or plasma calcium candice urement (mass/volume)Ordered By: Genevieve Wu on 01-02-2025 Calcium [Mass/Vol] 9.7 mg/dL 7.6-11.0 [facility] Serum or plasma cholesterol in HDL measurement (mass/volume)Ordered By: Genevieve Wu on 01-02-2025 Cholesterol in HDL [Mass/Vol] 52 mg/dL >40 [facility] Comment on above: National Cholesterol Education Program (NCEP) guidelines:<40 mg/dL: Low HDL-cholesterol (major risk factor for CHD)>= 60 mg/dL: High HDL-cholesterol (negative risk factor for CHD)HDL-cholesterol is affected by a number of factors, e.g. smoking, exercise, hormones, sex and age. Serum or plasma cholesterol measurement (mass/volume)Ordered By: Genevieve Wu on 01-02-2025 Cholesterol [Mass/Vol] 187 mg/dL <201 [facility] Comment on above: Cholesterol level, D esirable <200 mg/dLBorderline high cholesterol 200-239 mg/dLHigh cholesterol >=240 mg/dLRecommendations of the NCEP Adult Treatment Panel for the following risk-cutoff thresholds for the [place] population. Serum or plasma urea nitroge n measurement (mass/volume)Ordered By: Genevieve Wu on 01-02-2025 Urea nitrogen [Mass/Vol] 17 mg/dL 4-19 [facility] Sodium levelOrdered By: Gerardo kohligilbertdrew Wu on 01-02-2025 Sodium [Moles/Vol] 139 mmol/L 133-145 [facility] Total proteinOrdered By: Garry Wu on 01-02-2025 Protein [Mass/Vol] 7.6 g/dL 5.9-8.4 [facility] Triglycerides measurementOrd ered By: Genevieve Wu on 01-02-2025 Triglyceride [Mass/Vol] 192 mg/dL <199 [facility] Comment on above: The drugs N-Acetylcy steine and Metamizole may falsely depress this assay. Normal range: <150 mg/dLBorderline High: 150-199 mg/dLHigh: 200-499 mg/dLVery High: >500 mg/dL White blood cell (WBC) count Ordered By: Genevieve Wu on 01-02-2025 WBC (Bld) [#/Vol] 9.6 10*3/uL 4.4-11.0 [facility] Pulmonary Visit Reporton Pulmonary Visit Report Normal [facility] Neurology Visit Reporton Neurology Visit Report Normal [facility] Absolute lymphocyte countOrd ered By: Genevieve Wu on 11-28-2024 Lymphocytes Auto (Unsp spec) [#/Vol] 2.10 10*3/uL 0.83-4.51 [facility] Absolute neutrophil countOrd ered By: Genevieve Wu on 11-28-2024 Neutrophils (Bld) [#/Vol] 6.1 10*3/uL 2.0-7.7 [facility] Anion gap in Serum or Plasma Ordered By: Genevieve Wu on 11-28-2024 Anion gap [Moles/Vol] 14 mmol/L 5-15 [facility] Automated lymphocyte count a s percentage of total leukocytesOrdered By: Genevieve Wu on 11-28-2024 Lymphocytes/100 WBC Auto (Unsp spec) 22.2 % 19-41 [facility] BUN/creatinine ratioOrdered By: Genevieve Wu on 11-28-2024 Urea nitrogen/Creatinine [Mass ratio] 14.9 mg/mg 10-20 [facility] Basophil percentageOrdered B y: Genevieve Wu on 11-28-2024 Basophils/100 WBC (Bld) 0.7 % 0-1 [facility] Carbon dioxide, total [Moles /volume] in Central venous bloodOrdered By: Genevieve Wu on 11-28-2024 CO2 [Moles/Vol] 23.8 mmol/L 21.0-32.0 [facility] Chest without Contraston Chest without Contrast Normal [facility] Chloride assayOrdered By: Abe Wu on 11-28-2024 Chloride [Moles/Vol] 103 mmol/L 98-108 [facility] Eosinophil percentageOrdered By: Genevieve Wu on 11-28-2024 Eosinophils/100 WBC (Bld) 2.0 % 0-5 [facility] Erythrocyte distribution wid th ratioOrdered By: Genevieve Wu on 11-28-2024 Erythrocyte distribution width (RBC) [Ratio] 14.6 % 11.6-14.6 [facility] Erythrocyte distribution wid th standard deviationOrdered By: Genevieve Wu on 11-28-2024 Erythrocyte distribution width (RBC) [Ratio] 46.7 fl High 35.1-43.9 [facility] Glomerular filtration rate ( GFR) estimation/1.73 sq m using serum, plasma, or whole bOrdered By: Genevieve Wu on 11-28-2024 GFR/1.73 sq M.predicted among non-blacks MDRD (S/P/Bld) [Vol rate/Area] 57 mL/min/{1.73_m2} Low >60 [facility] Comment on above: mL/min/1.73m2 CKD-EP I Creatinine Equation (2020) Hematocrit Auto (Bld) [Volum e fraction]Ordered By: mihirbosworthsharon Wu on 11-28-2024 Hematocrit (Bld) [Volume fraction] 40.5 % 37-47 [facility] Hemoglobin measurementOrdere d By: [facility] Mcduffiesharon Wu on 11-28-2024 Hemoglobin (Bld) [Mass/Vol] 12.3 g/dL 12.0-15.0 [facility] Immature granulocytes/100 WB C Auto (Bld)Ordered By: mihirbosworthsharon Wu on 11-28-2024 Immature granulocytes/100 WBC (Bld) 0.400 % 0.0-0.9 [facility] Comment on above: IG% - Immature Granu locytes (promyelocytes, myelocytes and metamyelocytes) > 1% indicates that a LEFT SHIFT is Present. MCV (mean corpuscular volume ) determinationOrdered By: mihirbosworthsharon Blackdrew on 11-28-2024 MCV (RBC) [Entitic vol] 87.9 fL 81-99 [facility] Mean corpuscular hemoglobin (MCH) determinationOrdered By: [facility] Mcduffiesharon Blackdrew on 11-28-2024 MCH (RBC) [Entitic mass] 26.7 pg Low 27.0-32.0 [facility] Mean corpuscular hemoglobin concentration (MCHC) determinationOrdered By: mihirbosworthsharon Wu on 11-28-2024 MCHC (RBC) [Mass/Vol] 30.4 g/dL Low 32-36 [facility] Mean platelet volume determi nationOrdered By: [facility] Mcduffiesharon Blackdrew on 11-28-2024 Platelet mean volume (Bld) [Entitic vol] 9.3 fL 6.2-12.0 [facility] Monocyte percentageOrdered B y: mihirbosworthsharon Blackdrew on 11-28-2024 Monocytes/100 WBC (Bld) 10.1 % High 0-10 [facility] Neutrophil percentageOrdered By: Genevieve Wu on 11-28-2024 Neutrophils/100 WBC (Bld) 64.6 % 47-70 [facility] Nucleated red blood cell per centageOrdered By: Genevieve Wu on 11-28-2024 Nucleated RBC/100 WBC (Bld) [Ratio] 0 % 0-5 [facility] Platelet countOrdered By: Abe Wu on 11-28-2024 Platelets (Bld) [#/Vol] 415 10*3/uL 150-450 [facility] Potassium measurement (mass/ volume)Ordered By: Genevieve Wu on 11-28-2024 Potassium (Unsp spec) [Mass/Vol] 3.4 mmol/L 3.3-5.1 [facility] RBC Auto (Bld) [#/Vol]Ordere d By: Genevieve Wu on 11-28-2024 RBC (Bld) [#/Vol] 4.61 10*6/uL 4.2-5.4 [facility] Serum creatinine measurement (mass/volume)Ordered By: Genevieve Wu on 11-28-2024 Creatinine [Mass/Vol] 0.98 mg/dL 0.70-1.20 [facility] Serum glucose measurement (m ass/volume)Ordered By: Genevieve Wu on 11-28-2024 Glucose [Mass/Vol] 95 mg/dL 70-99 [facility] Serum or plasma calcium candice urement (mass/volume)Ordered By: Genevieve Wu on 11-28-2024 Calcium [Mass/Vol] 9.5 mg/dL 7.6-11.0 [facility] Serum or plasma urea nitroge n measurement (mass/volume)Ordered By: Genevieve Wu on 11-28-2024 Urea nitrogen [Mass/Vol] 15 mg/dL 4-19 [facility] Sodium levelOrdered By: Gerardo Wu on 11-28-2024 Sodium [Moles/Vol] 141 mmol/L 133-145 [facility] White blood cell (WBC) count Ordered By: Genevieve Wu 11-28-2024 WBC (Bld) [#/Vol] 9.5 10*3/uL 4.4-11.0 [facility] Echocardiogram study reportO rdered By: Sharon Crouch on 11-09-2024 Study report [facility] [address] [id number] Echo Complete 11/08/24 0912 MR#: [id number] Acct: [id number] Name: SAPNA BULLARD Rep #:[id number] : 1940 84 From: Sharon Crouch MD Attending Dr: Dr. Yunior Desai MD Status: REG CLI Ordering Dr: Yunior Desai MD Date: 11/08/24 Location: [facility] Sex: F C Admitted: Reason For Study [...] Dr. Yunior Desai MD ~ Date Dictated: 11/08/2412 Date Transcribed: 11/09/24 1034 Drilling Supervisor: Signed [facility] Work Phone: Echo Completeon 11-08-2024 Echo Complete Normal [facility] Absolute lymphocyte countOrd ered By: Genevieve Wu on 10-31-2024 Lymphocytes Auto (Unsp spec) [#/Vol] 1.57 10*3/uL 0.83-4.51 [facility] Absolute neutrophil countOrd ered By: Genevieve Wu on 10-31-2024 Neutrophils (Bld) [#/Vol] 5.6 10*3/uL 2.0-7.7 [facility] Anion gap in Serum or Plasma Ordered By: Genevieve Wu on 10-31-2024 Anion gap [Moles/Vol] 11 mmol/L 5-15 [facility] Automated lymphocyte count a s percentage of total leukocytesOrdered By: Genevieve Wu on 10-31-2024 Lymphocytes/100 WBC Auto (Unsp spec) 18.6 % Low 19- [facility] BUN/creatinine ratioOrdered By: Genevieve Wu on 10-31-2024 Urea nitrogen/Creatinine [Mass ratio] 17.8 mg/mg 10- [facility] Basophil percentageOrdered B y: Genevieve Wu on 10-31-2024 Basophils/100 WBC (Bld) 0.6 % 0-1 [facility] Carbon dioxide, total [Moles /volume] in Central venous bloodOrdered By: Genevieve Wu on 10-31-2024 CO2 [Moles/Vol] 25.5 mmol/L 21.0-32.0 [facility] Chloride assayOrdered By: Abe Wu on 10-31-2024 Chloride [Moles/Vol] 103 mmol/L 98-108 [facility] Eosinophil percentageOrdered By: haseeb Wu on 10-31-2024 Eosinophils/100 WBC (Bld) 2.1 % 0-5 [facility] Erythrocyte distribution wid th ratioOrdered By: [facility] Mcduffiesharon Wu on 10-31-2024 Erythrocyte distribution width (RBC) [Ratio] 14.3 % 11.6-14.6 [facility] Erythrocyte distribution wid th standard deviationOrdered By: haseeb Wu on 10-31-2024 Erythrocyte distribution width (RBC) [Ratio] 45.2 fl High 35.1-43.9 [facility] Glomerular filtration rate ( GFR) estimation/1.73 sq m using serum, plasma, or whole bOrdered By: Genevieve Wu on 10-31-2024 GFR/1.73 sq M.predicted among non-blacks MDRD (S/P/Bld) [Vol rate/Area] 57 mL/min/{1.73_m2} Low >60 [facility] Comment on above: mL/min/1.73m2 CKD-EP I Creatinine Equation (2020) Hematocrit Auto (Bld) [Volum e fraction]Ordered By: Genevieve Wu on 10-31-2024 Hematocrit (Bld) [Volume fraction] 36.3 % Low 37-47 [facility] Hemoglobin measurementOrdere d By: Genevieve Wu on 10-31-2024 Hemoglobin (Bld) [Mass/Vol] 11.3 g/dL Low 12.0-15.0 [facility] Immature granulocytes/100 WB C Auto (Bld)Ordered By: Genevieve Wu on 10-31-2024 Immature granulocytes/100 WBC (Bld) 0.500 % 0.0-0.9 [facility] Comment on above: IG% - Immature Granu locytes (promyelocytes, myelocytes and metamyelocytes) > 1% indicates that a LEFT SHIFT is Present. MCV (mean corpuscular volume ) determinationOrdered By: Genevieve Wu on 10-31-2024 MCV (RBC) [Entitic vol] 86.2 fL 81-99 [facility] Mean corpuscular hemoglobin (MCH) determinationOrdered By: [facility] Mc[facility]ffiesharon Wu on 10-31-2024 MCH (RBC) [Entitic mass] 26.8 pg Low 27.0-32.0 [facility] Mean corpuscular hemoglobin concentration (MCHC) determinationOrdered By: [facility] Mc[facility]ffiesharon Wu on 10-31-2024 MCHC (RBC) [Mass/Vol] 31.1 g/dL Low 32-36 [facility] Mean platelet volume determi nationOrdered By: haseeb Wu on 10-31-2024 Platelet mean volume (Bld) [Entitic vol] 9.2 fL 6.2-12.0 [facility] Monocyte percentageOrdered B y: Genevieve Wu on 10-31-2024 Monocytes/100 WBC (Bld) 11.9 % High 0-10 [facility] Neutrophil percentageOrdered By: [facility] Waynedrew on 10-31-2024 Neutrophils/100 WBC (Bld) 66.3 % 47-70 [facility] Nucleated red blood cell per centageOrdered By: haseeb Wu on 10-31-2024 Nucleated RBC/100 WBC (Bld) [Ratio] 0 % 0-5 [facility] Platelet countOrdered By: mihirdion Wu on 10-31-2024 Platelets (Bld) [#/Vol] 353 10*3/uL 150-450 [facility] Potassium measurement (mass/ volume)Ordered By: haseeb Wu on 10-31-2024 Potassium (Unsp spec) [Mass/Vol] 4.1 mmol/L 3.3-5.1 [facility] RBC Auto (Bld) [#/Vol]Ordere d By: Genevieve Wu on 10-31-2024 RBC (Bld) [#/Vol] 4.21 10*6/uL 4.2-5.4 [facility] Serum creatinine measurement (mass/volume)Ordered By: Genevieve Wu on 10-31-2024 Creatinine [Mass/Vol] 0.99 mg/dL 0.70-1.20 [facility] Serum glucose measurement (m ass/volume)Ordered By: Genevieve Wu on 10-31-2024 Glucose [Mass/Vol] 92 mg/dL 70-99 [facility] Serum or plasma calcium candice urement (mass/volume)Ordered By: Genevieve Wu on 10-31-2024 Calcium [Mass/Vol] 9.1 mg/dL 7.6-11.0 [facility] Serum or plasma urea nitroge n measurement (mass/volume)Ordered By: Genevieve Wu on 10-31-2024 Urea nitrogen [Mass/Vol] 18 mg/dL 4-19 [facility] Sodium levelOrdered By: Gerardo kohlinick Jazmin on 10-31-2024 Sodium [Moles/Vol] 139 mmol/L 133-145 [facility] White blood cell (WBC) count Ordered By: Genevieve Wu on 10-31-2024 WBC (Bld) [#/Vol] 8.5 10*3/uL 4.4-11.0 [facility] Cardiology Visit Reporton Cardiology Visit Report Normal [facility] Absolute lymphocyte countOrd ered By: Genevieve Wu on 10-03-2024 Lymphocytes Auto (Unsp spec) [#/Vol] 2.02 10*3/uL 0.83-4.51 [facility] Absolute neutrophil countOrd ered By: Genevieve Wu on 10-03-2024 Neutrophils (Bld) [#/Vol] 5.3 10*3/uL 2.0-7.7 [facility] Anion gap in Serum or Plasma Ordered By: Genevieve Wu on 10-03-2024 Anion gap [Moles/Vol] 11 mmol/L 5-15 [facility] Automated lymphocyte count a s percentage of total leukocytesOrdered By: Genevieve Wu on 10-03-2024 Lymphocytes/100 WBC Auto (Unsp spec) 23.5 % 19-41 [facility] BUN/creatinine ratioOrdered By: Genevieve Wu on 10-03-2024 Urea nitrogen/Creatinine [Mass ratio] 22.3 mg/mg High 10-20 [facility] Basophil percentageOrdered B y: Genevieve Wu on 10-03-2024 Basophils/100 WBC (Bld) 0.6 % 0-1 [facility] Bilirubin directOrdered By: Genevieve Wu on 10-03-2024 Bilirubin.direct [Mass/Vol] mg/dL 0.00-0.30 [facility] Bilirubin, totalOrdered By: Genevieve Wu on 10-03-2024 Bilirubin [Mass/Vol] 0.18 mg/dL 0.00-1.30 [facility] Carbon dioxide, total [Moles /volume] in Central venous bloodOrdered By: Genevieve Wu on 10-03-2024 CO2 [Moles/Vol] 28.4 mmol/L 21.0-32.0 [facility] Chloride assayOrdered By: Abe Wu on 10-03-2024 Chloride [Moles/Vol] 101 mmol/L 98-108 [facility] Eosinophil percentageOrdered By: Genevieve Wu on 10-03-2024 Eosinophils/100 WBC (Bld) 2.4 % 0-5 [facility] Erythrocyte distribution wid th ratioOrdered By: Genevieve Wu on 10-03-2024 Erythrocyte distribution width (RBC) [Ratio] 14.8 % High 11.6-14.6 [facility] Erythrocyte distribution wid th standard deviationOrdered By: Genevieve Wu on 10-03-2024 Erythrocyte distribution width (RBC) [Ratio] 47.3 fl High 35.1-43.9 [facility] Glomerular filtration rate ( GFR) estimation/1.73 sq m using serum, plasma, or whole bOrdered By: Genevieve Wu on 10-03-2024 GFR/1.73 sq M.predicted among non-blacks MDRD (S/P/Bld) [Vol rate/Area] 61 mL/min/{1.73_m2} >60 [facility] Comment on above: mL/min/1.73m2 CKD-EP I Creatinine Equation (2020) Hematocrit Auto (Bld) [Volum e fraction]Ordered By: Genevieve Wu on 10-03-2024 Hematocrit (Bld) [Volume fraction] 39.7 % 37-47 [facility] Hemoglobin measurementOrdere d By: Genevieve Wu on 10-03-2024 Hemoglobin (Bld) [Mass/Vol] 12.1 g/dL 12.0-15.0 [facility] Immature granulocytes/100 WB C Auto (Bld)Ordered By: Genevieve Wu on 10-03-2024 Immature granulocytes/100 WBC (Bld) 0.800 % 0.0-0.9 [facility] Comment on above: IG% - Immature Granu locytes (promyelocytes, myelocytes and metamyelocytes) > 1% indicates that a LEFT SHIFT is Present. Laboratory - Chemistry and C hemistry - challengeOrdered By: Genevieve Wu on 10-03-2024 AST [Catalytic activity/Vol] 22 U/L <32 [facility] MCV (mean corpuscular volume ) determinationOrdered By: Gerardobosworthsharon Wu on 10-03-2024 MCV (RBC) [Entitic vol] 87.3 fL 81-99 [facility] Mean corpuscular hemoglobin (MCH) determinationOrdered By: haseeb Wu on 10-03-2024 MCH (RBC) [Entitic mass] 26.6 pg Low 27.0-32.0 [facility] Mean corpuscular hemoglobin concentration (MCHC) determinationOrdered By: Genevieve Wu on 10-03-2024 MCHC (RBC) [Mass/Vol] 30.5 g/dL Low 32-36 [facility] Mean platelet volume determi nationOrdered By: Genevieve Wu on 10-03-2024 Platelet mean volume (Bld) [Entitic vol] 9.1 fL 6.2-12.0 [facility] Monocyte percentageOrdered B y: Genevieve Wu on 10-03-2024 Monocytes/100 WBC (Bld) 11.4 % High 0-10 [facility] Neutrophil percentageOrdered By: Genevieve Wu on 10-03-2024 Neutrophils/100 WBC (Bld) 61.3 % 47-70 [facility] Nucleated red blood cell per centageOrdered By: Genevieve Wu on 10-03-2024 Nucleated RBC/100 WBC (Bld) [Ratio] 0 % 0-5 [facility] Platelet countOrdered By: Abe Wu on 10-03-2024 Platelets (Bld) [#/Vol] 456 10*3/uL High 150-450 [facility] Potassium measurement (mass/ volume)Ordered By: Genevieve Wu on 10-03-2024 Potassium (Unsp spec) [Mass/Vol] 4.1 mmol/L 3.3-5.1 [facility] RBC Auto (Bld) [#/Vol]Ordere d By: Genevieve Wu on 10-03-2024 RBC (Bld) [#/Vol] 4.55 10*6/uL 4.2-5.4 [facility] Serum creatinine measurement (mass/volume)Ordered By: Genevieve Wu on 10-03-2024 Creatinine [Mass/Vol] 0.93 mg/dL 0.70-1.20 [facility] Serum globulin measurementOr dered By: Genevieve Wu on 10-03-2024 Globulin (S) [Mass/Vol] 3.5 g/dL 2.2-4.2 [facility] Serum glucose measurement (m ass/volume)Ordered By: Genevieve Wu on 10-03-2024 Glucose [Mass/Vol] 95 mg/dL 70-99 [facility] Serum or plasma alanine carpio otransferase (ALT) measurementOrdered By: Genevieve Wu on 10-03-2024 ALT [Catalytic activity/Vol] 16 U/L <35 [facility] Serum or plasma albumin candice urement (mass/volume)Ordered By: Genevieve Wu on 10-03-2024 Albumin [Mass/Vol] 3.9 g/dL 3.4-4.8 [facility] Serum or plasma alkaline anthony sphatase measurementOrdered By: Genevieve Wu on 10-03-2024 ALP [Catalytic activity/Vol] 138 U/L High 35-104 [facility] Serum or plasma calcium candice urement (mass/volume)Ordered By: Genevieve Wu on 10-03-2024 Calcium [Mass/Vol] 10.0 mg/dL 7.6-11.0 [facility] Serum or plasma urea nitroge n measurement (mass/volume)Ordered By: Genevieve Wu on 10-03-2024 Urea nitrogen [Mass/Vol] 21 mg/dL High 4-19 [facility] Sodium levelOrdered By: Gerardo kohlinick Jazmin on 10-03-2024 Sodium [Moles/Vol] 141 mmol/L 133-145 [facility] Total proteinOrdered By: Garry andrewsharon Wu on 10-03-2024 Protein [Mass/Vol] 7.4 g/dL 5.9-8.4 [facility] White blood cell (WBC) count Ordered By: Genevieve Wu on 10-03-2024 WBC (Bld) [#/Vol] 8.6 10*3/uL 4.4-11.0 [facility] Pulmonary Visit Reporton Pulmonary Visit Report Normal [facility] Absolute lymphocyte countOrd ered By: Genevieve Wu on 08-29-2024 Lymphocytes Auto (Unsp spec) [#/Vol] 1.30 10*3/uL 0.83-4.51 [facility] Absolute neutrophil countOrd ered By: Genevieve Wu on 08-29-2024 Neutrophils (Bld) [#/Vol] 5.4 10*3/uL 2.0-7.7 [facility] Anion gap in Serum or Plasma Ordered By: Genevieve Wu on 08-29-2024 Anion gap [Moles/Vol] 9 mmol/L 5-15 [facility] Automated lymphocyte count a s percentage of total leukocytesOrdered By: Genevieve Wu on 08-29-2024 Lymphocytes/100 WBC Auto (Unsp spec) 16.7 % Low 19-41 [facility] BUN/creatinine ratioOrdered By: Genevieve Wu on 08-29-2024 Urea nitrogen/Creatinine [Mass ratio] 20.0 mg/mg 10-20 [facility] Basophil percentageOrdered B y: Gerardokarleysharon Blackjuanitadrew on 08-29-2024 Basophils/100 WBC (Bld) 0.6 % 0-1 [facility] Carbon dioxide, total [Moles /volume] in Central venous bloodOrdered By: Genevieve Wu on 08-29-2024 CO2 [Moles/Vol] 27.1 mmol/L 21.0-32.0 [facility] Chloride assayOrdered By: Abe mihirdion Wu on 08-29-2024 Chloride [Moles/Vol] 101 mmol/L 98-108 [facility] Eosinophil percentageOrdered By: Gerardobosworthsharon Wu on 08-29-2024 Eosinophils/100 WBC (Bld) 2.2 % 0-5 [facility] Erythrocyte distribution wid th ratioOrdered By: mihirbosworthsharon Jazmin on 08-29-2024 Erythrocyte distribution width (RBC) [Ratio] 16.1 % High 11.6-14.6 [facility] Erythrocyte distribution wid th standard deviationOrdered By: mihirbosworthsharon Blackjuanitadrew on 08-29-2024 Erythrocyte distribution width (RBC) [Ratio] 50.8 fl High 35.1-43.9 [facility] Glomerular filtration rate ( GFR) estimation/1.73 sq m using serum, plasma, or whole bOrdered By: Genevieve Wu on 08-29-2024 GFR/1.73 sq M.predicted among non-blacks MDRD (S/P/Bld) [Vol rate/Area] 64 mL/min/{1.73_m2} >60 [facility] Comment on above: mL/min/1.73m2 CKD-EP I Creatinine Equation (2020) Hematocrit Auto (Bld) [Volum e fraction]Ordered By: Genevieve Wu on 08-29-2024 Hematocrit (Bld) [Volume fraction] 38.6 % 37-47 [facility] Hemoglobin measurementOrdere d By: Genevieve Wu on 08-29-2024 Hemoglobin (Bld) [Mass/Vol] 11.9 g/dL Low 12.0-15.0 [facility] Immature granulocytes/100 WB C Auto (Bld)Ordered By: Genevieve Wu on 08-29-2024 Immature granulocytes/100 WBC (Bld) 0.500 % 0.0-0.9 [facility] Comment on above: IG% - Immature Granu locytes (promyelocytes, myelocytes and metamyelocytes) > 1% indicates that a LEFT SHIFT is Present. MCV (mean corpuscular volume ) determinationOrdered By: Genevieve Wu on 08-29-2024 MCV (RBC) [Entitic vol] 86.2 fL 81-99 [facility] Mean corpuscular hemoglobin (MCH) determinationOrdered By: mihirbosworthsharon Wu on 08-29-2024 MCH (RBC) [Entitic mass] 26.6 pg Low 27.0-32.0 [facility] Mean corpuscular hemoglobin concentration (MCHC) determinationOrdered By: mihirbosworthsharon Wu on 08-29-2024 MCHC (RBC) [Mass/Vol] 30.8 g/dL Low 32-36 [facility] Mean platelet volume determi nationOrdered By: Genevieve Wu on 08-29-2024 Platelet mean volume (Bld) [Entitic vol] 8.9 fL 6.2-12.0 [facility] Monocyte percentageOrdered B y: Genevieve Wu on 08-29-2024 Monocytes/100 WBC (Bld) 11.2 % High 0-10 [facility] Neutrophil percentageOrdered By: mihirbosworthsharon Wu on 08-29-2024 Neutrophils/100 WBC (Bld) 68.8 % 47-70 [facility] Nucleated red blood cell per centageOrdered By: haseeb Wu on 08-29-2024 Nucleated RBC/100 WBC (Bld) [Ratio] 0 % 0-5 [facility] Platelet countOrdered By: Abe Wu on 08-29-2024 Platelets (Bld) [#/Vol] 389 10*3/uL 150-450 [facility] Potassium measurement (mass/ volume)Ordered By: Genevieve Wu on 08-29-2024 Potassium (Unsp spec) [Mass/Vol] 4.1 mmol/L 3.3-5.1 [facility] RBC Auto (Bld) [#/Vol]Ordere d By: Gerardokarleysharon Blackjuanitadrew on 08-29-2024 RBC (Bld) [#/Vol] 4.48 10*6/uL 4.2-5.4 [facility] Serum creatinine measurement (mass/volume)Ordered By: Genevieve Wu on 08-29-2024 Creatinine [Mass/Vol] 0.90 mg/dL 0.70-1.20 [facility] Serum glucose measurement (m ass/volume)Ordered By: Genevieve Wu on 08-29-2024 Glucose [Mass/Vol] 87 mg/dL 70-99 [facility] Serum or plasma calcium candice urement (mass/volume)Ordered By: Genevieve Wu on 08-29-2024 Calcium [Mass/Vol] 9.6 mg/dL 7.6-11.0 [facility] Serum or plasma urea nitroge n measurement (mass/volume)Ordered By: Genevieve Wu on 08-29-2024 Urea nitrogen [Mass/Vol] 18 mg/dL 4-19 [facility] Sodium levelOrdered By: Gerardo dion Waynejuanitadrew on 08-29-2024 Sodium [Moles/Vol] 138 mmol/L 133-145 [facility] White blood cell (WBC) count Ordered By: Genevieve Wu on 08-29-2024 WBC (Bld) [#/Vol] 7.8 10*3/uL 4.4-11.0 [facility] OPERATIVE PROCEDURESon 08-12 OPERATIVE PROCEDURES [facility] OPERATIVE REPORT NAME ACCOUNT SEX AGE ADMIT DISCHARGE PT MED. RECORD# NUMBER DATE DATE TYPE SAPNA BULLARD [id number] F 84 08/11/24 2 [id number] ROOM: DATE OF : 1940 DICTATING PHYSICIAN: Marcos White DATE OF PROCEDURE: August 11, 2024 SURGEON: Marcos White DO SUEDING AND BUFFING MACHINE OPERATOR: None. ANESTHESIA: Local. PREPROCEDURE DIAGNOSES: 1. Lumbosacral [...] Marcos White DO 08/11/24 10:54 JOB #: [id number] Transcribed By: am 08/11/24 11:28 Electronically signed by: E-SIGN: MARCOS WHITE 08/12/24 14:42 Page 2 of 2 SAPNA BULLARD Operative Report Normal [facility] C-ARM USAGE 1 HOURon 025 C-ARM USAGE 1 HOUR [place] [address] Patient: SAPNA BULLARD Phone#: : 1940 Age: 84 Gender: F Pt. Type: Out Account: [id number] Location: 2 Ordering: MARCOS WHITE Exam Date: 08/11/2024/10:47 Family Phys: NICCI LEMUS Charge Code: 009317 Physician: Kimble Order #: [id number] Dose#: 1.12 [id number] PROCEDURE: C-ARM USEAGE 1 HR COMPARISON: [facility], , C-ARM USEAGE 1 HR, 02/05/2024, 11:01. [...] Richardson MD on 08/11/2024 at 12:24 Normal [facility] Chest WITH Contraston 2024 Chest WITH Contrast Normal [facility] Absolute lymphocyte countOrd ered By: Genevieve Wu on 08-01-2024 Lymphocytes Auto (Unsp spec) [#/Vol] 1.98 10*3/uL 0.83-4.51 [facility] Absolute neutrophil countOrd ered By: Genevieve Wu on 08-01-2024 Neutrophils (Bld) [#/Vol] 4.1 10*3/uL 2.0-7.7 [facility] Automated lymphocyte count a s percentage of total leukocytesOrdered By: Genevieve Wu on 08-01-2024 Lymphocytes/100 WBC Auto (Unsp spec) 25.7 % 19-41 [facility] Basophil percentageOrdered B y: Genevieve Wu on 08-01-2024 Basophils/100 WBC (Bld) 0.9 % 0-1 [facility] Blood urea nitrogen (BUN)/cr eatinine ratioOrdered By: Genevieve Wu on 08-01-2024 Urea nitrogen/Creatinine [Mass ratio] 20.6 mg/mg High 10-20 [facility] Carbon dioxide measurementOr dered By: Genevieve Wu on 08-01-2024 CO2 [Moles/Vol] 32.0 mmol/L 21.0-32.0 [facility] Chloride measurementOrdered By: Genevieve Wu on 08-01-2024 Chloride [Moles/Vol] 101 mmol/L 98-107 [facility] Eosinophil percentageOrdered By: Genevieve Wu on 08-01-2024 Eosinophils/100 WBC (Bld) 4.8 % 0-5 [facility] Erythrocyte distribution wid th ratioOrdered By: Genevieve Wu on 08-01-2024 Erythrocyte distribution width (RBC) [Ratio] 15.6 % High 11.6-14.6 [facility] Erythrocyte distribution wid th standard deviationOrdered By: Genevieve Wu on 08-01-2024 Erythrocyte distribution width (RBC) [Ratio] 49.8 fl High 35.1-43.9 [facility] Glomerular filtration rate ( GFR) estimationOrdered By: Genevieve Wu on 08-01-2024 GFR/1.73 sq M.predicted among non-blacks MDRD (S/P/Bld) [Vol rate/Area] 55 mL/min/{1.73_m2} Low >60 [facility] Comment on above: Non- GFR Calc Glucose measurementOrdered B y: Genevieve Wu on 08-01-2024 Glucose [Mass/Vol] 85 mg/dL 74-106 [facility] Hematocrit Auto (Bld) [Volum e fraction]Ordered By: Genevieve Wu on 08-01-2024 Hematocrit (Bld) [Volume fraction] 39.0 % 37-47 [facility] Hemoglobin measurementOrdere d By: Genevieve Wu on 08-01-2024 Hemoglobin (Bld) [Mass/Vol] 11.4 g/dL Low 12.0-15.0 [facility] Immature granulocytes/100 WB C Auto (Bld)Ordered By: Genevieve Wu on 08-01-2024 Immature granulocytes/100 WBC (Bld) 0.800 % 0.0-0.9 [facility] Comment on above: IG% - Immature Granu locytes (promyelocytes, myelocytes and metamyelocytes) > 1% indicates that a LEFT SHIFT is Present. MCV (mean corpuscular volume ) determinationOrdered By: Genevieve Wu on 08-01-2024 MCV (RBC) [Entitic vol] 87.4 fL 81-99 [facility] Mean corpuscular hemoglobin (MCH) determinationOrdered By: Genevieve Wu on 08-01-2024 MCH (RBC) [Entitic mass] 25.6 pg Low 27.0-32.0 [facility] Mean corpuscular hemoglobin concentration (MCHC) determinationOrdered By: Genevieve Wu on 08-01-2024 MCHC (RBC) [Mass/Vol] 29.2 g/dL Low 32-36 [facility] Mean platelet volume determi nationOrdered By: Genevieve Wu on 08-01-2024 Platelet mean volume (Bld) [Entitic vol] 9.0 fL 6.2-12.0 [facility] Monocyte percentageOrdered B y: Genevieve Wu on 08-01-2024 Monocytes/100 WBC (Bld) 14.2 % High 0-10 [facility] Neutrophil percentageOrdered By: Genevieve Wu on 08-01-2024 Neutrophils/100 WBC (Bld) 53.6 % 47-70 [facility] Nucleated red blood cell per centageOrdered By: Genevieve Wu on 08-01-2024 Nucleated RBC/100 WBC (Bld) [Ratio] 0 % 0-5 [facility] Platelet countOrdered By: Abe Wu on 08-01-2024 Platelets (Bld) [#/Vol] 408 10*3/uL 150-450 [facility] Potassium measurementOrdered By: Genevieve Wu on 08-01-2024 Potassium [Moles/Vol] 4.1 mmol/L 3.5-5.1 [facility] RBC Auto (Bld) [#/Vol]Ordere d By: Genevieve Wu on 08-01-2024 RBC (Bld) [#/Vol] 4.46 10*6/uL 4.2-5.4 [facility] Serum anion gap measurementO rdered By: Genevieve Wu on 08-01-2024 Anion gap [Moles/Vol] 6 mmol/L 5-15 [facility] Serum or plasma calcium candice urement (mass/volume)Ordered By: Genevieve Wu on 08-01-2024 Calcium [Mass/Vol] 10.1 mg/dL 8.5-10.1 [facility] Serum or plasma creatinine m easurement (mass/volume)Ordered By: Genevieve Wu on 08-01-2024 Creatinine [Mass/Vol] 1.02 mg/dL 0.55-1.02 [facility] Comment on above: The validity of the calculated GFR & GFRAA in patients over 70 years has not been determined. Clinical correlation is essential. Serum or plasma urea nitroge n measurement (mass/volume)Ordered By: Genevieve Wu on 08-01-2024 Urea nitrogen [Mass/Vol] 21 mg/dL High 7-18 [facility] Sodium levelOrdered By: Gerardo Wu on 08-01-2024 Sodium [Moles/Vol] 139 mmol/L 136-145 [facility] White blood cell (WBC) count Ordered By: Genevieve Wu on 08-01-2024 WBC (Bld) [#/Vol] 7.7 10*3/uL 4.4-11.0 [facility] Neurology Visit Reporton Neurology Visit Report Normal [facility] Absolute lymphocyte countOrd ered By: Genevieve Wu on 06-30-2024 Lymphocytes Auto (Unsp spec) [#/Vol] 1.62 10*3/uL 0.83-4.51 [facility] Absolute neutrophil countOrd ered By: Genevieve Wu on 06-30-2024 Neutrophils (Bld) [#/Vol] 4.2 10*3/uL 2.0-7.7 [facility] Automated lymphocyte count a s percentage of total leukocytesOrdered By: Genevieve Wu on 06-30-2024 Lymphocytes/100 WBC Auto (Unsp spec) 22.7 % 19-41 [facility] Basophil percentageOrdered B y: Genevieve Wu on 06-30-2024 Basophils/100 WBC (Bld) 0.6 % 0-1 [facility] Blood urea nitrogen (BUN)/cr eatinine ratioOrdered By: Genevieve Wu on 06-30-2024 Urea nitrogen/Creatinine [Mass ratio] 27.1 mg/mg High 10-20 [facility] Carbon dioxide measurementOr dered By: Genevieve Wu on 06-30-2024 CO2 [Moles/Vol] 29.0 mmol/L 21.0-32.0 [facility] Chloride measurementOrdered By: Genevieve Wu on 06-30-2024 Chloride [Moles/Vol] 106 mmol/L 98-107 [facility] Eosinophil percentageOrdered By: Genevieve Wu on 06-30-2024 Eosinophils/100 WBC (Bld) 3.2 % 0-5 [facility] Erythrocyte distribution wid th ratioOrdered By: haseeb Wu on 06-30-2024 Erythrocyte distribution width (RBC) [Ratio] 15.3 % High 11.6-14.6 [facility] Erythrocyte distribution wid th standard deviationOrdered By: Genevieve Wu on 06-30-2024 Erythrocyte distribution width (RBC) [Ratio] 47.4 fl High 35.1-43.9 [facility] Glomerular filtration rate ( GFR) estimationOrdered By: Genevieve Wu on 06-30-2024 GFR/1.73 sq M.predicted among non-blacks MDRD (S/P/Bld) [Vol rate/Area] 65 mL/min/{1.73_m2} >60 [facility] Comment on above: Non- GFR Calc Glucose measurementOrdered B y: Genevieve Wu on 06-30-2024 Glucose [Mass/Vol] 87 mg/dL 74-106 [facility] Hematocrit Auto (Bld) [Volum e fraction]Ordered By: Genevieve Wu on 06-30-2024 Hematocrit (Bld) [Volume fraction] 32.5 % Low 37-47 [facility] Hemoglobin measurementOrdere d By: Genevieve Wu on 06-30-2024 Hemoglobin (Bld) [Mass/Vol] 9.6 g/dL Low 12.0-15.0 [facility] Immature granulocytes/100 WB C Auto (Bld)Ordered By: Genevieve Wu on 06-30-2024 Immature granulocytes/100 WBC (Bld) 0.800 % 0.0-0.9 [facility] Comment on above: IG% - Immature Granu locytes (promyelocytes, myelocytes and metamyelocytes) > 1% indicates that a LEFT SHIFT is Present. MCV (mean corpuscular volume ) determinationOrdered By: Genevieve uW on 06-30-2024 MCV (RBC) [Entitic vol] 87.1 fL 81-99 [facility] Mean corpuscular hemoglobin (MCH) determinationOrdered By: Genevieve Wu on 06-30-2024 MCH (RBC) [Entitic mass] 25.7 pg Low 27.0-32.0 [facility] Mean corpuscular hemoglobin concentration (MCHC) determinationOrdered By: Genevieve Wu on 06-30-2024 MCHC (RBC) [Mass/Vol] 29.5 g/dL Low 32-36 [facility] Mean platelet volume determi nationOrdered By: Genevieve Wu on 06-30-2024 Platelet mean volume (Bld) [Entitic vol] 8.8 fL 6.2-12.0 [facility] Monocyte percentageOrdered B y: Genevieve Wu on 06-30-2024 Monocytes/100 WBC (Bld) 13.4 % High 0-10 [facility] Neutrophil percentageOrdered By: Genevieve Wu on 06-30-2024 Neutrophils/100 WBC (Bld) 59.3 % 47-70 [facility] Nucleated red blood cell per centageOrdered By: Genevieve Wu on 06-30-2024 Nucleated RBC/100 WBC (Bld) [Ratio] 0 % 0-5 [facility] Platelet countOrdered By: Abe Wu on 06-30-2024 Platelets (Bld) [#/Vol] 420 10*3/uL 150-450 [facility] Potassium measurementOrdered By: Genevieve Waynechey on 06-30-2024 Potassium [Moles/Vol] 4.3 mmol/L 3.5-5.1 [facility] RBC Auto (Bld) [#/Vol]Ordere d By: Genevieve Waynechey on 06-30-2024 RBC (Bld) [#/Vol] 3.73 10*6/uL Low 4.2-5.4 [facility] Serum anion gap measurementO rdered By: Genevieve Waynechey on 06-30-2024 Anion gap [Moles/Vol] 5 mmol/L 5-15 [facility] Serum or plasma calcium candice urement (mass/volume)Ordered By: Gerardokarleysharon Blackjuanitadrew on 06-30-2024 Calcium [Mass/Vol] 9.2 mg/dL 8.5-10.1 [facility] Serum or plasma creatinine m easurement (mass/volume)Ordered By: Gerardodion Waynejuanitadrew on 06-30-2024 Creatinine [Mass/Vol] 0.89 mg/dL 0.55-1.02 [facility] Comment on above: The validity of the calculated GFR & GFRAA in patients over 70 years has not been determined. Clinical correlation is essential. Serum or plasma urea nitroge n measurement (mass/volume)Ordered By: Gerardokarleysharon Blackjuanitadrew on 06-30-2024 Urea nitrogen [Mass/Vol] 24 mg/dL High 7-18 [facility] Sodium levelOrdered By: Gerardo ashley Waynejuanitadrew on 06-30-2024 Sodium [Moles/Vol] 140 mmol/L 136-145 [facility] White blood cell (WBC) count Ordered By: Genevieve Waynechey on 06-30-2024 WBC (Bld) [#/Vol] 7.2 10*3/uL 4.4-11.0 [facility] ANCAon 06-16-2024 Atypical pANCA <1:20 Normal Neg:<1:20 [facility] Comment on above: Order Comment: PT. R EFUSED BLOOD DRAW. SON ASKED IF ID COME BACK LATER. Result Comment: The atypical pANCA pattern has been observed in asignificant percentage of patients with ulcerative colitis,primary sclerosing cholangitis and autoimmune hepatitis. Performed By: #### L 4600.0100, L505.7010, L3100.5450, L3300.1200, L3500.3600 ####[facility] [address] [place], [address] Cytoplasmic Ab <1:20 Normal Neg:<1:20 [facility] Comment on above: Order Comment: PT. R EFUSED BLOOD DRAW. SON ASKED IF ID COME BACK LATER. Performed By: #### L 4600.0100, L505.7010, L3100.5450, L3300.1200, L3500.3600 ####[facility] [address] [place], [address] Perinuclear Ab. <1:20 Normal Neg:<1:20 [facility] Comment on above: Order Comment: PT. [...] up testing of positive sera with both ME-3 and MPO-ANCA enzyme immunoassays. As many as 5% serumsamples are positive only by EIA. Ref. AM J Clin [id number];111:[id number]. Performed By: #### L 4600.0100, L505.7010, L3100.5450, L3300.1200, L3500.3600 ####[facility] [address] [place], [address] Aspergillus Antibodieson Asp. flavus Negative Normal Neg:<1:1 [facility] Comment on above: Order Comment: PT. R EFUSED BLOOD DRAW. SON ASKED IF ID COME BACK LATER. Performed By: #### L 4600.0100, L505.7010, L3100.5450, L3300.1200, L3500.3600 ####[facility] [address] [place], [address] Asp. fumigatus Negative Normal Neg:<1:1 [facility] Comment on above: Order Comment: PT. R EFUSED BLOOD DRAW. SON ASKED IF ID COME BACK LATER. Performed By: #### L 4600.0100, L505.7010, L3100.5450, L3300.1200, L3500.3600 ####[facility] [address] [place], [address] Asp. niger Negative Normal Neg:<1:1 [facility] Comment on above: Order Comment: PT. R EFUSED BLOOD DRAW. SON ASKED IF ID COME BACK LATER. Performed By: #### L 4600.0100, L505.7010, L3100.5450, L3300.1200, L3500.3600 ####[facility] [address] [place], [address] CCP IgG Antibodieson 025 CCP IgG Ab. 8 units Normal 0-19 [facility] Comment on above: Order Comment: PT. R EFUSED BLOOD DRAW. SON ASKED IF ID COME BACK LATER. Result Comment: Nega tive <20 Weak positive 20 - 39 Moderate positive 40 - 59 Strong positive >59Performed at: [facility] [address] [id number] Director: Curtis Rubio PhD, Phone: [phone] at: [facility] [address] [id number] Director: Angie Moulton MD, Phone: [phone] Performed By: #### L 4600.0100, L505.7010, L3100.5450, L3300.1200, L3500.3600 ####[facility] [address] [place], [address] Basic Metabolic Profile (BMP )on 06-15-2024 BUN Normal 7-18 [facility] Comment on above: Result Comment: Canc elled via OM: Order cancelled - Patient discharged Performed By: #### L 100.0100, L500.2500 ####[facility] [address] [place], [address] BUN/CRE Normal 10-20 [facility] Comment on above: Result Comment: Canc elled via OM: Order cancelled - Patient discharged Performed By: #### L 100.0100, L500.2500 ####[facility] [address] [place], [address] CA,Total Normal 8.5-10.1 [facility] Comment on above: Result Comment: Canc elled via OM: Order cancelled - Patient discharged Performed By: #### L 100.0100, L500.2500 ####[facility] [address] [place], [address] CL Normal 98-107 [facility] Comment on above: Result Comment: Canc elled via OM: Order cancelled - Patient discharged Performed By: #### L 100.0100, L500.2500 ####[facility] [address] [place], [address] CO2 Normal 21.0-32.0 [facility] Comment on above: Result Comment: Canc elled via OM: Order cancelled - Patient discharged Performed By: #### L 100.0100, L500.2500 ####[facility] [address] [place], [address] CREAT,SERUM Normal 0.55-1.02 [facility] Comment on above: Result Comment: Canc elled via OM: Order cancelled - Patient discharged Performed By: #### L 100.0100, L500.2500 ####[facility] [address] [place], [address] EST GFR Normal >60 [facility] Comment on above: Result Comment: Canc elled via OM: Order cancelled - Patient discharged Performed By: #### L 100.0100, L500.2500 ####[facility] [address] [place], [address] EST GFR - AA Normal >60 [facility] Comment on above: Result Comment: Canc elled via OM: Order cancelled - Patient discharged Performed By: #### L 100.0100, L500.2500 ####[facility] [address] [place], [address] GAP Normal 5-15 [facility] Comment on above: Result Comment: Canc elled via OM: Order cancelled - Patient discharged Performed By: #### L 100.0100, L500.2500 ####[facility] [address] [place], [address] GLU Normal 74-106 [facility] Comment on above: Result Comment: Canc elled via OM: Order cancelled - Patient discharged Performed By: #### L 100.0100, L500.2500 ####[facility] [address] [place], [address] Potassium Normal 3.5-5.1 [facility] Comment on above: Result Comment: Canc elled via OM: Order cancelled - Patient discharged Performed By: #### L 100.0100, L500.2500 ####[facility] [address] [place], [address] Basic Metabolic Profile (BMP) Normal 136-145 [facility] Comment on above: Result Comment: Canc elled via OM: Order cancelled - Patient discharged Performed By: #### L 100.0100, L500.2500 ####[facility] [address] [place], [address] CBC W/Diff, Automatedon 01-0 -2024 Absolute Neut Normal 2.0-7.7 [facility] Comment on above: Result Comment: Canc elled via OM: Order cancelled - Patient discharged Performed By: #### L 100.0100, L500.2500 ####[facility] [address] [place], [address] HCT Normal 37-47 [facility] Comment on above: Result Comment: Canc elled via OM: Order cancelled - Patient discharged Performed By: #### L 100.0100, L500.2500 ####[facility] [address] [place], [address] HGB Normal 12.0-15.0 [facility] Comment on above: Result Comment: Canc elled via OM: Order cancelled - Patient discharged Performed By: #### L 100.0100, L500.2500 ####[facility] [address] [place], [address] MCH Normal 27.0-32.0 [facility] Comment on above: Result Comment: Canc elled via OM: Order cancelled - Patient discharged Performed By: #### L 100.0100, L500.2500 ####[facility] [address] [place], [address] MCHC Normal 32-36 [facility] Comment on above: Result Comment: Canc elled via OM: Order cancelled - Patient discharged Performed By: #### L 100.0100, L500.2500 ####[facility] [address] [place], [address] MCV Normal 81-99 [facility] Comment on above: Result Comment: Canc elled via OM: Order cancelled - Patient discharged Performed By: #### L 100.0100, L500.2500 ####[facility] [address] [place], [address] NEUT% Normal 47-70 [facility] Comment on above: Result Comment: Canc elled via OM: Order cancelled - Patient discharged Performed By: #### L 100.0100, L500.2500 ####[facility] [address] [place], [address] PLT Normal 150-450 [facility] Comment on above: Result Comment: Canc elled via OM: Order cancelled - Patient discharged Performed By: #### L 100.0100, L500.2500 ####[facility] [address] [place], [address] RBC Normal 4.2-5.4 [facility] Comment on above: Result Comment: Canc elled via OM: Order cancelled - Patient discharged Performed By: #### L 100.0100, L500.2500 ####[facility] [address] [place], [address] RDW CV Normal 11.6-14.6 [facility] Comment on above: Result Comment: Canc elled via OM: Order cancelled - Patient discharged Performed By: #### L 100.0100, L500.2500 ####[facility] [address] [place], [address] RDW SD Normal 35.1-43.9 [facility] Comment on above: Result Comment: Canc elled via OM: Order cancelled - Patient discharged Performed By: #### L 100.0100, L500.2500 ####[facility] [address] [place], [address] WBC Normal 4.4-11.0 [facility] Comment on above: Result Comment: Canc elled via OM: Order cancelled - Patient discharged Performed By: #### L 100.0100, L500.2500 ####[facility] [address] [place], [address] Basic Metabolic Profile (BMP )on 06-14-2024 BUN/CRE 22.1 RATIO High 10-20 [facility] Comment on above: Performed By: #### L 100.0100, L500.2500 ####[facility] [address] [place], [address] CA,Total 9.2 mg/dL Normal 8.5-10.1 [facility] Comment on above: Performed By: #### L 100.0100, L500.2500 ####[facility] [address] [place], [address] Chloride [Moles/Vol] 104 mmol/L Normal 98-107 [facility]; [facility] Work Phone: Comment on above: Performed By: #### L 100.0100, L500.2500 ####[facility] [address] [place], [address] CO2 [Moles/Vol] 29.0 mmol/L Normal 21.0-32.0 [facility]; [facility] Work Phone: Comment on above: Performed By: #### L 100.0100, L500.2500 ####[facility] [address] [place], [address] Creatinine [Mass/Vol] 0.95 mg/dL Normal 0.55-1.02 [facility]; [facility] Work Phone: Comment on above: Result Comment: The validity of the calculated GFR GFRAA in patients over70 years has not been determined. Clinical correlation isessential. Performed By: #### L 100.0100, L500.2500 ####[facility] [address] [place], [address] ECRCL 32.19 ml/min Normal [facility]; [facility] Work Phone: Comment on above: Performed By: #### L 100.0100, L500.2500 ####[facility] [address] [place], [address] EST GFR - AA 72 mL/min Normal >60 [facility] Work Phone: Comment on above: Result Comment: Afri can Austrian GFR Calc Performed By: #### L 100.0100, L500.2500 ####[facility] [address] [place], [address] GAP 4 Low 5-15 [facility]; [facility] Work Phone: Comment on above: Performed By: #### L 100.0100, L500.2500 ####[facility] [address] [place], [address] GFR/1.73 sq M.predicted among non-blacks MDRD (S/P/Bld) [Vol rate/Area] 60 mL/min/{1.73_m2} Normal >60 [facility]; [facility] Work Phone: Comment on above: Result Comment: Non- GFR Calc Performed By: #### L 100.0100, L500.2500 ####[facility] [address] [place], [address] Glucose [Mass/Vol] 99 mg/dL Normal 74-106 [facility] Work Phone: Comment on above: Performed By: #### L 100.0100, L500.2500 ####[facility] [address] [place], [address] Potassium [Moles/Vol] 3.2 mmol/L Low 3.5-5.1 [facility]; [facility] Work Phone: Comment on above: Performed By: #### L 100.0100, L500.2500 ####[facility] [address] [place], [address] Sodium [Moles/Vol] 137 mmol/L Normal 136-145 [facility]; [facility] Work Phone: Comment on above: Performed By: #### L 100.0100, L500.2500 ####[facility] [address] [place], [address] Urea nitrogen [Mass/Vol] 21 mg/dL High 7-18 [facility]; [facility] Work Phone: Comment on above: Performed By: #### L 100.0100, L500.2500 ####[facility] [address] [place], [address] CBC W/Diff, Automatedon 12-3 Absolute Lymph 1.57 X10 3/uL Normal 0.83-4.51 [facility] Comment on above: Performed By: #### L 100.0100, L500.2500 ####[facility] [address] [place], [address] Absolute Neut 6.5 X10 3/uL Normal 2.0-7.7 [facility] Comment on above: Performed By: #### L 100.0100, L500.2500 ####[facility] [address] [place], [address] Basophils/100 WBC (Bld) 0.3 % Normal 0-1 [facility]; [facility] Work Phone: Comment on above: Performed By: #### L 100.0100, L500.2500 ####[facility] [address] [place], [place], [phone]) Eosinophils/100 WBC (Bld) 1.8 % Normal 0-5 [facility]; [facility] Work Phone: Comment on above: Performed By: #### L 100.0100, L500.2500 ####[facility] [address] [place], [place], [phone] Erythrocyte distribution width (RBC) [Ratio] 14.3 % Normal 11.6-14.6 [facility]; [facility] Work Phone: Comment on above: Performed By: #### L 100.0100, L500.2500 ####[facility] [address] [place], [place], [phone]) Hematocrit (Bld) [Volume fraction] 34.3 % Low 37-47 [facility]; [facility] Work Phone: Comment on above: Performed By: #### L 100.0100, L500.2500 ####[facility] [address] [place], [place], [phone]) Hemoglobin (Bld) [Mass/Vol] 10.4 g/dL Low 12.0-15.0 [facility]; [facility] Work Phone: Comment on above: Performed By: #### L 100.0100, L500.2500 ####[facility] [address] [place], [place], [phone]) IG% 0.900 Normal 0.0-0.9 [facility]; [facility] Work Phone: Comment on above: Result Comment: IG% - Immature Granulocytes (promyelocytes, myelocytes andmetamyelocytes) > 1% indicates that a LEFT SHIFT is Present. Performed By: #### L 100.0100, L500.2500 ####[facility] [address] [place], [address] Lymphocytes/100 WBC (Bld) 16.3 % Low 19-41 [facility]; [facility] Work Phone: Comment on above: Performed By: #### L 100.0100, L500.2500 ####[facility] [address] [place], [address] MCH (RBC) [Entitic mass] 26.0 pg Low 27.0-32.0 [facility]; [facility] Work Phone: Comment on above: Performed By: #### L 100.0100, L500.2500 ####[facility] [address] [place], [address] MCHC (RBC) [Mass/Vol] 30.3 g/dL Low 32-36 [facility]; [facility] Work Phone: Comment on above: Performed By: #### L 100.0100, L500.2500 ####[facility] [address] [place], [address] MCV (RBC) [Entitic vol] 85.8 fL Normal 81-99 [facility]; [facility] Work Phone: Comment on above: Performed By: #### L 100.0100, L500.2500 ####[facility] [address] [place], [address] Monocytes/100 WBC (Bld) 13.2 % High 0-10 [facility].; [facility], [facility] Work Phone: Comment on above: Performed By: #### L 100.0100, L500.2500 ####[facility] [address] [place], [place], [phone]) Neutrophils/100 WBC (Bld) 67.5 % Normal 47-70 [facility].; [facility] Work Phone: Comment on above: Performed By: #### L 100.0100, L500.2500 ####[facility] [address] [place], [place], [phone] Nucleated RBC (Bld) [#/Vol] 0 10*3/uL Normal 0-5 [facility].; [facility] Work Phone: Comment on above: Performed By: #### L 100.0100, L500.2500 ####[facility] [address] [place], [place], [phone] Platelet mean volume (Bld) [Entitic vol] 8.7 fL Normal 6.2-12.0 [facility]; [facility] Work Phone: Comment on above: Performed By: #### L 100.0100, L500.2500 ####[facility] [address] [place], [address] Platelets (Bld) [#/Vol] 401 10*3/uL Normal 150-450 [facility].; [facility], [facility]. Work Phone: Comment on above: Performed By: #### L 100.0100, L500.2500 ####[facility] [address] [place], [place], [phone] RBC (Bld) [#/Vol] 4.00 10*6/uL Low 4.2-5.4 [facility]; [facility] Work Phone: Comment on above: Performed By: #### L 100.0100, L500.2500 ####[facility] [address] [place], [address] RDW SD 44.6 fL High 35.1-43.9 [facility]; [facility] Work Phone: Comment on above: Performed By: #### L 100.0100, L500.2500 ####[facility] [address] [place], [address] WBC (Bld) [#/Vol] 9.6 10*3/uL Normal 4.4-11.0 [facility]; [facility] Work Phone: Comment on above: Performed By: #### L 100.0100, L500.2500 ####[facility] [address] [place], [address] Laboratory - Chemistry and C hemistry - challengeon 06-14-2024 Magnesium [Mass/Vol] 9.2 mg/dL Normal 8.5 - 1 0.1 mg/dL [facility]; [facility]. Work Phone: No Panel Informationon 06-14 Absolute Lymph 1.57 {X10_3/uL} Normal 0.83 - 4.51 {X10_3/uL} [facility]; [facility] Work Phone: Absolute Neut 6.5 {X10_3/uL} Normal 2.0 - 7.7 {X10_3/uL} [facility]. Work Phone: BUN/CRE 22.1 {RATIO} Abnormal 10 - 20 {RATIO} [facility].; [facility]. Work Phone: MICHAEL w/ Reflex Mult Confirmon 06-13-2024 MICHAEL TABLE TNP Normal [facility] Comment on above: Order Comment: PT. R EFUSED BLOOD DRAW. SON ASKED IF ID COME BACK LATER. Performed By: #### L 4600.0100, L505.7010, L3100.5450, L3300.1200, L3500.3600 ####[facility] [address] [place], [address] 12 Lead EKGon 06-11-2024 12 Lead EKG Normal [facility] L501.4020on 06-11-2024 TROPONIN-I HS 25 pg/mL Normal 3.0-54.0 [facility]. Work Phone: Comment on above: Order Comment: 'TROP ' Serial specimen #1, #2 or #3: 3 Result Comment: Plea se Note: New Test Units and Gender Specific Reference Ranges. For more information see Policy Stat Procedure [facility] High Sensitivity Troponin (TNIH) and attachments. Performed By: #### L 501.4020 ####[facility] [address] [place], [address] TROPONIN-I HS 21 pg/mL Normal 3.0-54.0 [facility].; [facility]. Work Phone: Comment on above: Order Comment: 'TROP ' Serial specimen #1, #2 or #3: 2 Result Comment: Plea se Note: New Test Units and Gender Specific Reference Ranges. For more information see Policy Stat Procedure [facility] High Sensitivity Troponin (TNIH) and attachments. Performed By: #### L 501.4020 ####[facility] [address] [place], [place], [address] TROPONIN-I HS 23 pg/mL Normal 3.0-54.0 [facility].; [facility]. Work Phone: Comment on above: Order Comment: 'TROP ' Serial specimen #1, #2 or #3: 1 Result Comment: Plea se Note: New Test Units and Gender Specific Reference Ranges. For more information see Policy Stat Procedure [facility] High Sensitivity Troponin (TNIH) and attachments. Performed By: #### L 501.4020 ####[facility] [address] [place], [place], [address] No Panel Informationon 06-10 MICHAEL TABLE Normal [facility].; [facility]. Work Phone: MICHAEL,DIRECT Negative Normal [facility].; [facility], [facility]. Work Phone: ANTI-CENT B AB Normal [facility], [facility]. Work Phone: ANTI-DNA (DS)AB Normal [facility].; [facility]. Work Phone: ANTI-JULIA-1 Normal [facility].; [facility], [facility]. Work Phone: ANTI-SS-A Normal [facility].; [facility], [facility]. Work Phone: ANTI-SS-B [facility], [facility]. Work Phone: ANTICHROMATIN Normal [facility].; [facility], [facility]. Work Phone: ANTISCLERODERM Normal [facility].; [facility] Work Phone: Asp. flavus Negative [facility].; [facility], [facility]. Work Phone: Asp. fumigatus Negative [facility], [facility]. Work Phone: Asp. niger Negative [facility].; [facility], [facility]. Work Phone: Atypical pANCA <1:20 [facility].; [facility], [facility]. Work Phone: CCP IgG Ab. 8 {units} Normal 0 - 19 {units} [facility].; [facility], [facility]. Work Phone: Cytoplasmic Ab <1:20 [facility].; [facility], [facility]. Work Phone: Perinuclear Ab. <1:20 [facility], [facility]. Work Phone: PLASTER MACHINE TENDER Ab Normal [facility].; [facility], [facility]. Work Phone: CORTES Ab [facility].; [facility], [facility]. Work Phone: Quantiferon TB-Gold+on 06-10 QFT MITOGEN SARAH > 10.00 Normal . [facility] Comment on above: Performed By: #### L 3400.8000 ####[facility] [address] [place], [address] QFT NIL VALUE 0.08 IU/mL Normal . [facility] Comment on above: Performed By: #### L 3400.8000 ####[facility] [address] [place], [place], [phone] QFT TB GOLD+ Comment Normal . [facility] Comment on above: Result Comment: Sarmad [...] the test. Performed By: #### L 3400.8000 ####[facility] [address] [place], [address] QFT TB POS CRIT Negative Normal Negative [facility] Comment on above: Result Comment: No [...] the productionof interferon gamma. Chemiluminescence immunoassaymethodologyPerformed at: [place] [facility] [address] [id number] Director: Curtis Rubio PhD, Phone: [phone] Performed By: #### L 3400.8000 ####[facility] [address] [place], [address] QFT TB1+ AG SARAH 0.08 IU/mL Normal . [facility] Comment on above: Performed By: #### L 3400.8000 ####[facility] [address] [place], [place], [address] QFT TB2+ AG SARAH 0.08 IU/mL Normal . [facility] Comment on above: Performed By: #### L 3400.8000 ####[facility] [address] [place], [place], [address] Rheumatoid Factoron 06-10-20 24 RHEUMATOID FAC < 10.0 Normal <15 [facility]; [employer] ANDREAFS[employer] [facility] Work Phone: Comment on above: Order Comment: PT. R EFUSED BLOOD DRAW. SON ASKED IF ID COME BACK LATER.PT REFUSED BLOOD DRAW AT NOON. NURSE WAS INFORMED WILL ADDTO AM DRAW. Performed By: #### L 4600.0100, L505.7010, L3100.5450, L3300.1200, L3500.3600 ####[facility] [address] 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 [place], [place], [address] CA,Total 8.6 mg/dL Normal 8.5-10.1 [facility] Comment on above: Performed By: #### L 501.5200, L300.3900, L501.2300, L500.2500, L100.0100, L501.9520, L500.3400, L500.4050 ####[facility] [address] [place], [place], [address] Chloride [Moles/Vol] 105 mmol/L Normal 98-107 [facility]; [facility] Work Phone: Comment on above: Performed By: #### L 501.5200, L300.3900, L501.2300, L500.2500, L100.0100, L501.9520, L500.3400, L500.4050 ####[facility] [address] [place], [place], [address] CO2 [Moles/Vol] 27.0 mmol/L Normal 21.0-32.0 [facility]; [facility] [facility] Work Phone: Comment on above: Performed By: #### L 501.5200, L300.3900, L501.2300, L500.2500, L100.0100, L501.9520, L500.3400, L500.4050 ####[facility] [address] [facility] [place], [address] Creatinine [Mass/Vol] 0.75 mg/dL Normal 0.55-1.02 [facility]; [facility] Work Phone: Comment on above: Result Comment: The validity of the calculated GFR GFRAA in patients over70 years has not been determined. Clinical correlation isessential. Performed By: #### L 501.5200, L300.3900, L501.2300, L500.2500, L100.0100, L501.9520, L500.3400, L500.4050 ####[facility] [address] [facility] [place], [address] ECRCL 38.23 ml/min Normal [facility]; [facility] Work Phone: Comment on above: Performed By: #### L 501.5200, L300.3900, L501.2300, L500.2500, L100.0100, L501.9520, L500.3400, L500.4050 ####[facility] [address] [place], [place], [phone] EST GFR - AA 94 mL/min Normal >60 [facility]; [facility] Work Phone: Comment on above: Result Comment: Afri can Austrian GFR Calc Performed By: #### L 501.5200, L300.3900, L501.2300, L500.2500, L100.0100, L501.9520, L500.3400, L500.4050 ####[facility] [address] [place], [place], [phone] GAP 6 Normal 5-15 [facility]; [facility] Work Phone: Comment on above: Performed By: #### L 501.5200, L300.3900, L501.2300, L500.2500, L100.0100, L501.9520, L500.3400, L500.4050 ####[facility] [address] [place], [place], [phone] GFR/1.73 sq M.predicted among non-blacks MDRD (S/P/Bld) [Vol rate/Area] 78 mL/min/{1.73_m2} Normal >60 [facility]; [facility] Work Phone: Comment on above: Result Comment: Non- GFR Calc Performed By: #### L 501.5200, L300.3900, L501.2300, L500.2500, L100.0100, L501.9520, L500.3400, L500.4050 ####[facility] [address] [facility]. [place], [place], [phone] Glucose [Mass/Vol] 84 mg/dL Normal 74-106 [facility]; [facility] Work Phone: Comment on above: Performed By: #### L 501.5200, L300.3900, L501.2300, L500.2500, L100.0100, L501.9520, L500.3400, L500.4050 ####[facility] [address] [facility] [place], [place], [phone] Potassium [Moles/Vol] 3.6 mmol/L Normal 3.5-5.1 [facility]; [facility] Work Phone: Comment on above: Performed By: #### L 501.5200, L300.3900, L501.2300, L500.2500, L100.0100, L501.9520, L500.3400, L500.4050 ####[facility] [address] [facility] [address] [place], [place], [phone] Sodium [Moles/Vol] 138 mmol/L Normal 136-145 [facility]; [facility] Work Phone: Comment on above: Performed By: #### L 501.5200, L300.3900, L501.2300, L500.2500, L100.0100, L501.9520, L500.3400, L500.4050 ####[facility] [address] [facility] [place], [place], [phone] Urea nitrogen [Mass/Vol] 13 mg/dL Normal 7-18 [facility]; [facility] Work Phone: Comment on above: Performed By: #### L 501.5200, L300.3900, L501.2300, L500.2500, L100.0100, L501.9520, L500.3400, L500.4050 ####[facility] [address] [place], [place], [phone] CBC W/Diff, Automatedon 12-2 Absolute Lymph 1.28 X10 3/uL Normal 0.83-4.51 [facility] Comment on above: Performed By: #### L 501.5200, L300.3900, L501.2300, L500.2500, L100.0100, L501.9520, L500.3400, L500.4050 ####[facility] [address] [place], [place], [phone] Absolute Neut 3.9 X10 3/uL Normal 2.0-7.7 [facility] Comment on above: Performed By: #### L 501.5200, L300.3900, L501.2300, L500.2500, L100.0100, L501.9520, L500.3400, L500.4050 ####[facility] [address] [facility] [place], [place], [phone] Basophils/100 WBC (Bld) 0.3 % Normal 0-1 [facility]; [facility] CENTERMobileDevHQ ANDREAFSKI [employer] [facility] [address] [employer] [facility] Work Phone: Comment on above: Performed By: #### L 501.5200, L300.3900, L501.2300, L500.2500, L100.0100, L501.9520, L500.3400, L500.4050 ####[facility] [address] [facility] [place], [place], [phone] Eosinophils/100 WBC (Bld) 3.2 % Normal 0-5 [facility] [address] [employer] [facility] Campus[facility]; [facility] [employer] [facility] CampusSchoooools.com Work Phone: Comment on above: Performed By: #### L 501.5200, L300.3900, L501.2300, L500.2500, L100.0100, L501.9520, L500.3400, L500.4050 ####[facility] [address] [place], [place], [phone] Erythrocyte distribution width (RBC) [Ratio] 14.4 % Normal 11.6-14.6 [facility]; [facility] Work Phone: Comment on above: Performed By: #### L 501.5200, L300.3900, L501.2300, L500.2500, L100.0100, L501.9520, L500.3400, L500.4050 ####[facility] [address] [place], [place], [phone] Hematocrit (Bld) [Volume fraction] 31.3 % Low 37-47 [facility]; [facility] Work Phone: Comment on above: Performed By: #### L 501.5200, L300.3900, L501.2300, L500.2500, L100.0100, L501.9520, L500.3400, L500.4050 ####[facility] [address] [place], [place], [phone] Hemoglobin (Bld) [Mass/Vol] 9.4 g/dL Low 12.0-15.0 [facility]; [facility] Work Phone: Comment on above: Performed By: #### L 501.5200, L300.3900, L501.2300, L500.2500, L100.0100, L501.9520, L500.3400, L500.4050 ####[facility] [address] [place], [address] IG% 1.000 High 0.0-0.9 [facility]; [facility] Work Phone: Comment on above: Result Comment: IG% - Immature Granulocytes (promyelocytes, myelocytes andmetamyelocytes) > 1% indicates that a LEFT SHIFT is Present. Performed By: #### L 501.5200, L300.3900, L501.2300, L500.2500, L100.0100, L501.9520, L500.3400, L500.4050 ####[facility] [address] [place], [address] Lymphocytes/100 WBC (Bld) 20.7 % Normal 19-41 [facility]; [facility] Work Phone: Comment on above: Performed By: #### L 501.5200, L300.3900, L501.2300, L500.2500, L100.0100, L501.9520, L500.3400, L500.4050 ####[facility] [address] [place], [address] MCH (RBC) [Entitic mass] 25.5 pg Low 27.0-32.0 [facility]; [facility] Work Phone: Comment on above: Performed By: #### L 501.5200, L300.3900, L501.2300, L500.2500, L100.0100, L501.9520, L500.3400, L500.4050 ####[facility] [address] [place], [address] MCHC (RBC) [Mass/Vol] 30.0 g/dL Low 32-36 [facility]; [facility] Work Phone: Comment on above: Performed By: #### L 501.5200, L300.3900, L501.2300, L500.2500, L100.0100, L501.9520, L500.3400, L500.4050 ####[facility] [address] [place], [place], [phone] MCV (RBC) [Entitic vol] 84.8 fL Normal 81-99 [facility]; [facility] Work Phone: Comment on above: Performed By: #### L 501.5200, L300.3900, L501.2300, L500.2500, L100.0100, L501.9520, L500.3400, L500.4050 ####[facility] [address] [place], [place], [phone]) Monocytes/100 WBC (Bld) 12.0 % High 0-10 [facility]; [facility] Work Phone: Comment on above: Performed By: #### L 501.5200, L300.3900, L501.2300, L500.2500, L100.0100, L501.9520, L500.3400, L500.4050 ####[facility] [address] [place], [place], [phone]) Neutrophils/100 WBC (Bld) 62.8 % Normal 47-70 [facility]; [facility] Work Phone: Comment on above: Performed By: #### L 501.5200, L300.3900, L501.2300, L500.2500, L100.0100, L501.9520, L500.3400, L500.4050 ####[facility] [address] [facility] [place], [place], [phone] Nucleated RBC (Bld) [#/Vol] 0 10*3/uL Normal 0-5 [facility]; [facility] Work Phone: Comment on above: Performed By: #### L 501.5200, L300.3900, L501.2300, L500.2500, L100.0100, L501.9520, L500.3400, L500.4050 ####[facility] [address] [place], [phone] Platelet mean volume (Bld) [Entitic vol] 8.9 fL Normal 6.2-12.0 [facility]; [facility] Work Phone: Comment on above: Performed By: #### L 501.5200, L300.3900, L501.2300, L500.2500, L100.0100, L501.9520, L500.3400, L500.4050 ####[facility] [address] [place], [place], [phone] Platelets (Bld) [#/Vol] 342 10*3/uL Normal 150-450 [facility]; [facility] Work Phone: Comment on above: Performed By: #### L 501.5200, L300.3900, L501.2300, L500.2500, L100.0100, L501.9520, L500.3400, L500.4050 ####[facility] [address] [place], [phone] RBC (Bld) [#/Vol] 3.69 10*6/uL Low 4.2-5.4 [facility]; [facility] Work Phone: Comment on above: Performed By: #### L 501.5200, L300.3900, L501.2300, L500.2500, L100.0100, L501.9520, L500.3400, L500.4050 ####[facility] [address] [facility] [place], [place], [phone] RDW SD 44.8 fL High 35.1-43.9 [facility]; [facility] Work Phone: Comment on above: Performed By: #### L 501.5200, L300.3900, L501.2300, L500.2500, L100.0100, L501.9520, L500.3400, L500.4050 ####[facility] [address] [facility] [place], [address] WBC (Bld) [#/Vol] 6.2 10*3/uL Normal 4.4-11.0 [facility]; [facility] Work Phone: Comment on above: Performed By: #### L 501.5200, L300.3900, L501.2300, L500.2500, L100.0100, L501.9520, L500.3400, L500.4050 ####[facility] [address] [facility] [place], [place], [phone] Comprehensive Metabolic Prof [facility] 06-08-2024 Albumin/Globulin [Mass ratio] 0.7 {ratio} Low 0.9-2.4 [facility]; [facility] Work Phone: Comment on above: Performed By: #### L 501.5200, L300.3900, L501.2300, L500.2500, L100.0100, L501.9520, L500.3400, L500.4050 ####[facility] [address] [place], [place], [phone] Laboratory - Chemistry and C hemistry - challengeon 06-08-2024 Magnesium [Mass/Vol] 8.6 mg/dL Normal 8.5 - 1 0.1 mg/dL [facility]; [facility] Work Phone: Liver Profileon 06-08-2024 Albumin [Mass/Vol] 2.5 g/dL Low 3.2-5.0 [facility]; [facility] Work Phone: Comment on above: Performed By: #### L 501.5200, L300.3900, L501.2300, L500.2500, L100.0100, L501.9520, L500.3400, L500.4050 ####[facility] [address] [place], [place], [phone] ALK P 96 U/L Normal 45-117 [facility]; [facility] Work Phone: Comment on above: Performed By: #### L 501.5200, L300.3900, L501.2300, L500.2500, L100.0100, L501.9520, L500.3400, L500.4050 ####[facility] [address] [place], [place], [phone] ALT [Catalytic activity/Vol] 17 U/L Normal 13-56 [facility]; [facility] Work Phone: Comment on above: Performed By: #### L 501.5200, L300.3900, L501.2300, L500.2500, L100.0100, L501.9520, L500.3400, L500.4050 ####[facility] [address] [place], [place], [phone] AST [Catalytic activity/Vol] 15 U/L Normal 15-37 [facility]; [facility] Work Phone: Comment on above: Performed By: #### L 501.5200, L300.3900, L501.2300, L500.2500, L100.0100, L501.9520, L500.3400, L500.4050 ####[facility] [address] [place], [place], [phone] Bilirubin [Mass/Vol] 0.30 mg/dL Normal 0.20-1.00 [facility]; [facility] Work Phone: Comment on above: Result Comment: For patients on eltrombopag therapy, use of Dimension [facility] TBIL is not recommended. Performed By: #### L 501.5200, L300.3900, L501.2300, L500.2500, L100.0100, L501.9520, L500.3400, L500.4050 ####[facility] [address] [place], [place], [phone] Bilirubin.direct [Mass/Vol] 0.09 mg/dL Normal 0.00-0.30 [facility]; [facility] Work Phone: Comment on above: Performed By: #### L 501.5200, L300.3900, L501.2300, L500.2500, L100.0100, L501.9520, L500.3400, L500.4050 ####[facility] [address] [place], [place], [phone] Globulin (S) [Mass/Vol] 3.4 g/dL Normal 2.2-4.2 [facility] Work Phone: Comment on above: Performed By: #### L 501.5200, L300.3900, L501.2300, L500.2500, L100.0100, L501.9520, L500.3400, L500.4050 ####[facility] [address] [place], [place], [phone] T PROT 5.9 g/dL Low 6.4-8.2 [facility].; [facility] Work Phone: Comment on above: Performed By: #### L 501.5200, L300.3900, L501.2300, L500.2500, L100.0100, L501.9520, L500.3400, L500.4050 ####[facility] [address] [place], [place], [phone] Magnesiumon 06-08-2024 Magnesium [Mass/Vol] 1.9 mg/dL Normal 1.6-2.6 [facility]; [facility] Work Phone: Comment on above: Performed By: #### L 501.5200, L300.3900, L501.2300, L500.2500, L100.0100, L501.9520, L500.3400, L500.4050 ####[facility] [address] [place], [address] No Panel Informationon 06-08 Absolute Lymph 1.28 {X10_3/uL} Normal 0.83 - 4.51 {X10_3/uL} [facility] Work Phone: Absolute Neut 3.9 {X10_3/uL} Normal 2.0 - 7.7 {X10_3/uL} [facility].; [facility]. Work Phone: BUN/CRE 17.3 {RATIO} Normal 10 - 20 {RATIO} [facility]. Work Phone: QFT MITOGEN SAARH > 10.00 Normal [facility].; [facility]. Work Phone: QFT NIL VALUE 0.08 {IU/mL} Normal [facility].; [facility]. Work Phone: QFT TB GOLD+ Comment Normal [facility]; [facility]. Work Phone: QFT TB POS CRIT Negative Normal [facility]. Work Phone: QFT TB1+ AG SARAH 0.08 {IU/mL} Normal [facility].; [facility]. Work Phone: QFT TB2+ AG SARAH 0.08 {IU/mL} Normal [facility].; [facility]. Work Phone: TSH 1.990 {uIU/mL} Normal 0.358 - 3.740 {uIU/mL} [facility]. Work Phone: Phosphoruson 06-08-2024 Phosphate [Mass/Vol] 3.3 mg/dL Normal 2.5-4.9 [facility] Work Phone: Comment on above: Performed By: #### L 501.5200, L300.3900, L501.2300, L500.2500, L100.0100, L501.9520, L500.3400, L500.4050 ####[facility] [address] [place], [place], [address] Prothrombin Time w/INRon INR Coag (PPP) [Relative time] 1.1 {INR} Normal [facility]; [facility] Work Phone: Comment on above: Performed By: #### L 501.5200, L300.3900, L501.2300, L500.2500, L100.0100, L501.9520, L500.3400, L500.4050 ####[facility] [address] [place], [place], [phone] PT Coag (PPP) [Time] 13.7 s Normal 11.7-14.9 [facility]; [facility] Work Phone: Comment on above: Performed By: #### L 501.5200, L300.3900, L501.2300, L500.2500, L100.0100, L501.9520, L500.3400, L500.4050 ####[facility] [address] [place], [place], [address] Thyroid Stim Hormone (TSH)on 06-08-2024 TSH 1.990 uIU/mL Normal 0.358-3.74 0 [facility] Comment on above: Performed By: #### L 501.5200, L300.3900, L501.2300, L500.2500, L100.0100, L501.9520, L500.3400, L500.4050 ####[facility] [address] [place], [place], [address] 12 Lead EKGon 06-07-2024 12 Lead EKG Normal [facility] Basic Metabolic Profile (BMP )on 06-07-2024 BUN/CRE 14.4 RATIO Normal 10-20 [facility] Comment on above: Order Comment: 'TROP ' Serial specimen #1, #2 or #3: 1 Performed By: #### L 100.0100, L501.2450, L503.6005, L500.2500, L300.3900, L300.4310, L501.4020, L500.3400 ####[facility] [address] [place], [place], [phone] CA,Total 8.8 mg/dL Normal 8.5-10.1 [facility] Comment on above: Order Comment: 'TROP ' Serial specimen #1, #2 or #3: 1 Performed By: #### L 100.0100, L501.2450, L503.6005, L500.2500, L300.3900, L300.4310, L501.4020, L500.3400 ####[facility] [address] [place], [place], [phone] Chloride [Moles/Vol] 104 mmol/L Normal 98-107 [facility]; [facility] Work Phone: Comment on above: Order Comment: 'TROP ' Serial specimen #1, #2 or #3: 1 Performed By: #### L 100.0100, L501.2450, L503.6005, L500.2500, L300.3900, L300.4310, L501.4020, L500.3400 ####[facility] [address] [place], [place], [phone] CO2 [Moles/Vol] 28.0 mmol/L Normal 21.0-32.0 [facility]; [facility] Work Phone: Comment on above: Order Comment: 'TROP ' Serial specimen #1, #2 or #3: 1 Performed By: #### L 100.0100, L501.2450, L503.6005, L500.2500, L300.3900, L300.4310, L501.4020, L500.3400 ####[facility] [address] [place], [place], [phone] Creatinine [Mass/Vol] 0.97 mg/dL Normal 0.55-1.02 [facility]; [facility] Work Phone: Comment on above: Order Comment: 'TROP ' Serial specimen #1, #2 or #3: 1 Result Comment: The validity of the calculated GFR GFRAA in patients over70 years has not been determined. Clinical correlation isessential. Performed By: #### L 100.0100, L501.2450, L503.6005, L500.2500, L300.3900, L300.4310, L501.4020, L500.3400 ####[facility] [address] [place], [address] EST GFR - AA 71 mL/min Normal >60 [facility]; [facility] Work Phone: Comment on above: Order Comment: 'TROP ' Serial specimen #1, #2 or #3: 1 Result Comment: Afri can Austrian GFR Calc Performed By: #### L 100.0100, L501.2450, L503.6005, L500.2500, L300.3900, L300.4310, L501.4020, L500.3400 ####[facility] [address] [place], [place], [phone] GAP 6 Normal 5-15 [facility]; [facility] Work Phone: Comment on above: Order Comment: 'TROP ' Serial specimen #1, #2 or #3: 1 Performed By: #### L 100.0100, L501.2450, L503.6005, L500.2500, L300.3900, L300.4310, L501.4020, L500.3400 ####[facility] [address] [place], [place], [phone] GFR/1.73 sq M.predicted among non-blacks MDRD (S/P/Bld) [Vol rate/Area] 58 mL/min/{1.73_m2} Low >60 [facility]; [facility] Work Phone: Comment on above: Order Comment: 'TROP ' Serial specimen #1, #2 or #3: 1 Result Comment: Non- GFR Calc Performed By: #### L 100.0100, L501.2450, L503.6005, L500.2500, L300.3900, L300.4310, L501.4020, L500.3400 ####[facility] [address] [place], [place], [phone] Glucose [Mass/Vol] 88 mg/dL Normal 74-106 [facility]; [facility] Work Phone: Comment on above: Order Comment: 'TROP ' Serial specimen #1, #2 or #3: 1 Performed By: #### L 100.0100, L501.2450, L503.6005, L500.2500, L300.3900, L300.4310, L501.4020, L500.3400 ####[facility] [address] [place], [place], [phone]) Potassium [Moles/Vol] 4.1 mmol/L Normal 3.5-5.1 [facility]; [facility] Work Phone: Comment on above: Order Comment: 'TROP ' Serial specimen #1, #2 or #3: 1 Result Comment: Slig ht Hemolysis, Result may be falsely increased. Performed By: #### L 100.0100, L501.2450, L503.6005, L500.2500, L300.3900, L300.4310, L501.4020, L500.3400 ####[facility] [address] [place], [place], [phone] Sodium [Moles/Vol] 138 mmol/L Normal 136-145 [facility]; [facility] Work Phone: Comment on above: Order Comment: 'TROP ' Serial specimen #1, #2 or #3: 1 Performed By: #### L 100.0100, L501.2450, L503.6005, L500.2500, L300.3900, L300.4310, L501.4020, L500.3400 ####[facility] [address] [place], [place], [phone] Urea nitrogen [Mass/Vol] 14 mg/dL Normal 7-18 [facility]; [facility] Work Phone: Comment on above: Order Comment: 'TROP ' Serial specimen #1, #2 or #3: 1 Performed By: #### L 100.0100, L501.2450, L503.6005, L500.2500, L300.3900, L300.4310, L501.4020, L500.3400 ####[facility] [address] [place], [place], [phone] Brain/Head without Contrasto n 06-07-2024 Brain/Head without Contrast Normal [facility] CBC W/Diff, Automatedon 12-2 PLT EST ADEQUATE Normal ADEQ [facility]; [facility] Work Phone: Comment on above: Performed By: #### L 100.0100, L501.2450, L503.6005, L500.2500, L300.3900, L300.4310, L501.4020, L500.3400 ####[facility] [address] [place], [address] Chest 1 View (Portable)on Chest 1 View (Portable) Normal [facility] Chest WITH Contraston 2023 Chest WITH Contrast Normal [facility] Summary on 06-07-2024 Emergency Department Summary Normal [facility] H AND P Exam - Hospitaliston 06-07-2024 H&P Exam - Hospitalist Normal [facility] L501.4020on 06-07-2024 TROPONIN-I HS 9 pg/mL Normal 3.0-54.0 [facility]; [facility] Work Phone: Comment on above: Order Comment: 'TROP ' Serial specimen #1, #2 or #3: 1 Result Comment: Plea se Note: New Test Units and Gender Specific Reference Ranges. For more information see Policy Stat Procedure [facility] High Sensitivity Troponin (TNIH) and attachments. Performed By: #### L 100.0100, L501.2450, L503.6005, L500.2500, L300.3900, L300.4310, L501.4020, L500.3400 ####[facility] [address] [place], [place], [phone] Laboratory - Chemistry and C hemistry - challengeon 06-07-2024 Magnesium [Mass/Vol] 8.8 mg/dL Normal 8.5 - 1 0.1 mg/dL [facility] [facility]; [facility] Work Phone: Laboratory - Hematology and Cell countson 06-07-2024 Basophils/100 WBC (Bld) 0.6 % Normal 0 - 1 [facility]; [facility] Work Phone: Eosinophils/100 WBC (Bld) 2.2 % Normal 0 - 5 [facility]; [facility] Work Phone: Erythrocyte distribution width (RBC) [Ratio] 14.5 % Normal 11.6 - 14.6 [facility]; [facility] Work Phone: Hematocrit (Bld) [Volume fraction] 34.6 % Abnormal 37 - 47 [facility]; [facility] Work Phone: Hemoglobin (Bld) [Mass/Vol] 10.4 g/dL Abnormal 12.0 - 15.0 g/dL [facility]; [facility] Work Phone: Lymphocytes/100 WBC (Bld) 19.7 % Normal 19 - 41 [facility]; [facility] Work Phone: MCH (RBC) [Entitic mass] 25.7 pg Abnormal 27.0 - 32.0 pg [facility]; [facility] Work Phone: MCHC (RBC) [Mass/Vol] 30.1 g/dL Abnormal 32 - 3 6 g/dL [facility]; [facility] Work Phone: MCV (RBC) [Entitic vol] 85.6 fL Normal 81 - 99 fL [facility]; [facility] Work Phone: Monocytes/100 WBC (Bld) 11.0 % Abnormal 0 - 10 [facility]; [facility] Work Phone: Neutrophils/100 WBC (Bld) 65.9 % Normal 47 - 70 [facility]; [facility]. Work Phone: Nucleated RBC (Bld) [#/Vol] 0 10*3/uL Normal 0 - 5 [facility]; [facility]. Work Phone: Platelet mean volume (Bld) [Entitic vol] 9.8 fL Normal 6.2 - 12.0 fL [facility]; [facility]. Work Phone: RBC (Bld) [#/Vol] 4.04 10*6/uL Abnormal 4.2 - 5.4 {M/mm3} [facility]; [facility]. Work Phone: WBC (Bld) [#/Vol] 6.4 10*3/uL Normal 4.4 - 11.0 K/mm3 [facility]. Work Phone: Laboratory - Microbiology an d Antimicrobial susceptibilityon 06-07-2024 Bacteria identified Cx Nom (Unsp spec) 0 SEEN Normal [facility]; [facility]. Work Phone: Laboratory - Specimen inform ationon 06-07-2024 Clarity (U) Clear Normal [facility]; [facility]. Work Phone: Color (U) Yellow Normal [facility]; [facility]. Work Phone: Laboratory - Urinalysison Nitrite Ql (U) Negative Normal [facility]; [facility] Work Phone: Lactic Acidon 06-07-2024 Lactate [Moles/Vol] 1.1 mmol/L Normal 0.4-1.9 [facility]; [facility] Work Phone: Comment on above: Order Comment: Y Performed By: #### L 100.0100, L501.2450, L503.6005, L500.2500, L300.3900, L300.4310, L501.4020, L500.3400 ####[facility] [address] [place], [address] Lipaseon 06-07-2024 Lipase [Catalytic activity/Vol] 75 U/L Normal 13-75 [facility]; [facility] Work Phone: Comment on above: Order Comment: 'TROP ' Serial specimen #1, #2 or #3: 1 Result Comment: Jaguar leigh note:LIPASE revised reference range effective 22.New Lipase methodology. Expected to produce lower valuesthan the previous assay method.NEW Reference Range: 13 - 75 U/L Performed By: #### L 100.0100, L501.2450, L503.6005, L500.2500, L300.3900, L300.4310, L501.4020, L500.3400 ####[facility] [address] [facility] [place], [address] Liver Profileon 06-07-2024 Albumin [Mass/Vol] 2.7 g/dL Low 3.2-5.0 [facility]; [facility] Work Phone: Comment on above: Order Comment: 'TROP ' Serial specimen #1, #2 or #3: 1 Performed By: #### L 100.0100, L501.2450, L503.6005, L500.2500, L300.3900, L300.4310, L501.4020, L500.3400 ####[facility] [address] [place], [place], [phone] ALK P 106 U/L Normal 45-117 [facility]; [facility] Work Phone: Comment on above: Order Comment: 'TROP ' Serial specimen #1, #2 or #3: 1 Performed By: #### L 100.0100, L501.2450, L503.6005, L500.2500, L300.3900, L300.4310, L501.4020, L500.3400 ####[facility] [address] [place], [place], [phone] ALT [Catalytic activity/Vol] 18 U/L Normal 13-56 [facility]; [facility] Work Phone: Comment on above: Order Comment: 'TROP ' Serial specimen #1, #2 or #3: 1 Performed By: #### L 100.0100, L501.2450, L503.6005, L500.2500, L300.3900, L300.4310, L501.4020, L500.3400 ####[facility] [address] [place], [place], [id number] AST [Catalytic activity/Vol] 25 U/L Normal 15-37 [facility]; [facility] Work Phone: Comment on above: Order Comment: 'TROP ' Serial specimen #1, #2 or #3: 1 Result Comment: Slig ht Hemolysis, Result may be falsely increased. Performed By: #### L 100.0100, L501.2450, L503.6005, L500.2500, L300.3900, L300.4310, L501.4020, L500.3400 ####[facility] [address] [place], [address] Bilirubin [Mass/Vol] 0.40 mg/dL Normal 0.20-1.00 [facility]; [facility] Work Phone: Comment on above: Order Comment: 'TROP ' Serial specimen #1, #2 or #3: 1 Result Comment: For patients on eltrombopag therapy, use of Dimension [facility] TBIL is not recommended. Performed By: #### L 100.0100, L501.2450, L503.6005, L500.2500, L300.3900, L300.4310, L501.4020, L500.3400 ####[facility] [address] [place], [address] Bilirubin.direct [Mass/Vol] 0.08 mg/dL Normal 0.00-0.30 [facility]; [facility] Work Phone: Comment on above: Order Comment: 'TROP ' Serial specimen #1, #2 or #3: 1 Performed By: #### L 100.0100, L501.2450, L503.6005, L500.2500, L300.3900, L300.4310, L501.4020, L500.3400 ####[facility] [address] [place], [address] Globulin (S) [Mass/Vol] 3.9 g/dL Normal 2.2-4.2 [facility]; [facility] Work Phone: Comment on above: Order Comment: 'TROP ' Serial specimen #1, #2 or #3: 1 Performed By: #### L 100.0100, L501.2450, L503.6005, L500.2500, L300.3900, L300.4310, L501.4020, L500.3400 ####[facility] [address] [facility] [place], [place], [address] T PROT 6.6 g/dL Normal 6.4-8.2 [employer]; [employer] Work Phone: Comment on above: Order Comment: 'TROP ' Serial specimen #1, #2 or #3: 1 Performed By: #### L 100.0100, L501.2450, L503.6005, L500.2500, L300.3900, L300.4310, L501.4020, L500.3400 ####[facility] [address] [facility] [place], [address] M100.678on 06-07-2024 M100.678 Pending SARS-CoV-2 (COVID 19) A Positive A INFLUENZA A Negative INFLUENZA B Negative RSV PCR Negative SARS-CoV-2 (COVID 19 PCR) Normal [facility] Comment on above: Performed By: #### L 400.0001, M100.678 ####[facility] [address] [facility] [place], [address] M8200.1000on 06-07-2024 M8200.1000 Normal Reference Ran ge = Negative MRSA DNA Nose Ql ZAID+probe GeneXpert Instrument, PCR method MRSA PCR MRSA NEGATIVE Normal [facility] Comment on above: Performed By: #### M 8200.1000 ####[facility] [address] [facility] [place], [address] No Panel Informationon 06-07 Absolute Lymph 1.26 {X10_3/uL} Normal 0.83 - 4.51 {X10_3/uL} [employer]; [employer] [facility] [employer]. Work Phone: Absolute Neut 4.2 {X10_3/uL} Normal 2.0 - 7.7 {X10_3/uL} [employer]; [employer] Work Phone: BILIRUBIN URINE Negative Normal [facility].; [facility]. Work Phone: BUN/CRE 14.4 {RATIO} Normal 10 - 20 {RATIO} [facility].; [facility]. Work Phone: GLUCOSE, UR Normal Normal [facility].; [facility]. Work Phone: IG% 0.600 Normal 0.0 - 0.9 [facility]; [facility]. Work Phone: KETONE UR Negative Normal [facility].; [facility]. Work Phone: LEUK ESTERASE Negative Normal [facility].; [facility]. Work Phone: M100.678 See Note Normal [facility].; [facility]. Work Phone: M8200.1000 See Note Normal [facility].; [facility], [facility]. Work Phone: OCCULT BLOOD-UR 10 /ul Abnormal [facility].; [facility], [facility]. Work Phone: pH UR 7.0 Normal 5.0 - 8.0 [facility]; [facility]. Work Phone: PLT Normal 150 - 450 K/mm3 [facility]; [facility], [facility]. Work Phone: PROT DIPSTX Negative Normal [facility] Work Phone: RDW SD 44.9 fL Abnormal 35.1 - 43.9 fL [facility]; [facility] Work Phone: SP.GR. DIPSTX 1.010 Normal 1.002 - 1.030 [facility]; [facility] Work Phone: UROBILI Normal Normal [facility]; [facility] Work Phone: Partial Thromboplast Timeon 06-07-2024 aPTT Coag (Bld) [Time] 21.3 s Low 24.1-36.2 [facility]; [facility] Work Phone: Comment on above: Performed By: #### L 100.0100, L501.2450, L503.6005, L500.2500, L300.3900, L300.4310, L501.4020, L500.3400 ####[facility] [address] [facility] [facility] [place], [address] Prothrombin Time w/INRon INR Coag (PPP) [Relative time] 0.9 {INR} Normal [facility]; [facility] Work Phone: Comment on above: Performed By: #### L 100.0100, L501.2450, L503.6005, L500.2500, L300.3900, L300.4310, L501.4020, L500.3400 ####[facility] [address] [place], [address] PT Coag (PPP) [Time] 12.2 s Normal 11.7-14.9 [facility]; [facility]. Work Phone: Comment on above: Performed By: #### L 100.0100, L501.2450, L503.6005, L500.2500, L300.3900, L300.4310, L501.4020, L500.3400 ####[facility] [address] [place], [address] Urinalysis, Completeon 06-07 EPI,SQUAMOUS 0-5 SEEN Normal 5-10 [facility].; [facility] Work Phone: Comment on above: Order Comment: COLLE CTOR TO SPECIFY Performed By: #### L 400.0001, M100.678 ####[facility] [address] [place], [address] RBC 0-5 SEEN Normal 0-5 [facility]; [facility] Work Phone: Comment on above: Order Comment: YA CTOR TO SPECIFY Performed By: #### L 400.0001, M100.678 ####[facility] [address] [place], [address] BACTERIA 0 SEEN Normal None Seen [facility] Comment on above: Order Comment: COLLE CTOR TO SPECIFY Performed By: #### L 400.0001, M100.678 ####[facility] [address] [place], [address] Mucus Ql (Urine sed) 0 SEEN Normal [facility]; [facility] Work Phone: Comment on above: Order Comment: COLLE CTOR TO SPECIFY Performed By: #### L 400.0001, M100.678 ####[facility] [address] [place], [address] WBC 0 SEEN Normal 0-5 [facility].; [facility]. Work Phone: Comment on above: Order Comment: COLLE CTOR TO SPECIFY Performed By: #### L 400.0001, M100.678 ####[facility] [address] [place], [address] CBC W/Diff, Automatedon 12- Absolute Lymph 0.79 X10 3/uL Low 0.83-4.51 [facility] Comment on above: Performed By: #### L 100.0100, L500.4050, L503.6005 ####[facility] [address] [place], [address] Absolute Neut 3.5 X10 3/uL Normal 2.0-7.7 [facility] Comment on above: Performed By: #### L 100.0100, L500.4050, L503.6005 ####[facility] [address] [place], [address] Basophils/100 WBC (Bld) 0.6 % Normal 0-1 [facility].; [facility] Work Phone: Comment on above: Performed By: #### L 100.0100, L500.4050, L503.6005 ####[facility] [address] [place], [address] Eosinophils/100 WBC (Bld) 0.4 % Normal 0-5 [facility].; [facility]. Work Phone: Comment on above: Performed By: #### L 100.0100, L500.4050, L503.6005 ####[facility] [address] [place], [address] Erythrocyte distribution width (RBC) [Ratio] 14.6 % Normal 11.6-14.6 [facility].; [facility] Work Phone: Comment on above: Performed By: #### L 100.0100, L500.4050, L503.6005 ####[facility] [address] [place], [place], [phone] Hematocrit (Bld) [Volume fraction] 35.5 % Low 37-47 [facility] Center[facility].; [facility] Work Phone: Comment on above: Performed By: #### L 100.0100, L500.4050, L503.6005 ####[facility] [address] [facility] [place], [place], [phone] Hemoglobin (Bld) [Mass/Vol] 10.5 g/dL Low 12.0-15.0 [facility]; [facility] Work Phone: Comment on above: Performed By: #### L 100.0100, L500.4050, L503.6005 ####[facility] [address] [facility]. [place], [place], [phone] IG% 0.400 Normal 0.0-0.9 [facility]; [facility] Work Phone: Comment on above: Result Comment: IG% - Immature Granulocytes (promyelocytes, myelocytes andmetamyelocytes) > 1% indicates that a LEFT SHIFT is Present. Performed By: #### L 100.0100, L500.4050, L503.6005 ####[facility] [address] [facility] [place], [place], [phone] Lymphocytes/100 WBC (Bld) 14.9 % Low 19-41 [facility]; [facility] Work Phone: Comment on above: Performed By: #### L 100.0100, L500.4050, L503.6005 ####[facility] [address] [place], [place], [phone] MCH (RBC) [Entitic mass] 25.5 pg Low 27.0-32.0 [facility]; [facility] Work Phone: Comment on above: Performed By: #### L 100.0100, L500.4050, L503.6005 ####[facility] [address] [place], [place], [phone] MCHC (RBC) [Mass/Vol] 29.6 g/dL Low 32-36 [facility]; [facility] Work Phone: Comment on above: Performed By: #### L 100.0100, L500.4050, L503.6005 ####[facility] [address] [place], [place], [phone] MCV (RBC) [Entitic vol] 86.4 fL Normal 81-99 [facility]; [facility] Work Phone: Comment on above: Performed By: #### L 100.0100, L500.4050, L503.6005 ####[facility] [address] [place], [place], [phone] Monocytes/100 WBC (Bld) 18.6 % High 0-10 [facility]; [facility] Work Phone: Comment on above: Performed By: #### L 100.0100, L500.4050, L503.6005 ####[facility] [address] [place], [address] Neutrophils/100 WBC (Bld) 65.1 % Normal 47-70 [facility]; [facility] Work Phone: Comment on above: Performed By: #### L 100.0100, L500.4050, L503.6005 ####[facility] [address] [place], [address] Nucleated RBC (Bld) [#/Vol] 0 10*3/uL Normal 0-5 [facility]; [facility] Work Phone: Comment on above: Performed By: #### L 100.0100, L500.4050, L503.6005 ####[facility] [address] [place], [address] Platelet mean volume (Bld) [Entitic vol] 8.5 fL Normal 6.2-12.0 [facility]; [facility] Work Phone: Comment on above: Performed By: #### L 100.0100, L500.4050, L503.6005 ####[facility] [address] [place], [address] Platelets (Bld) [#/Vol] 344 10*3/uL Normal 150-450 [facility]; [facility] Work Phone: Comment on above: Performed By: #### L 100.0100, L500.4050, L503.6005 ####[facility] [address] [place], [address] RBC (Bld) [#/Vol] 4.11 10*6/uL Low 4.2-5.4 [facility].; [facility] Work Phone: Comment on above: Performed By: #### L 100.0100, L500.4050, L503.6005 ####[facility] [address] [place], [place], [phone] RDW SD 46.4 fL High 35.1-43.9 [facility]; [facility] Work Phone: Comment on above: Performed By: #### L 100.0100, L500.4050, L503.6005 ####[facility] [address] [place], [address] WBC (Bld) [#/Vol] 5.3 10*3/uL Normal 4.4-11.0 [facility]; [facility] Work Phone: Comment on above: Performed By: #### L 100.0100, L500.4050, L503.6005 ####[facility] [address] [place], [address] Chest PA and Lateralon 05-30 Chest PA and Lateral Normal [facility] Comprehensive Metabolic Prof ilon 05-30-2024 Albumin [Mass/Vol] 3.0 g/dL Low 3.2-5.0 [facility].; [facility] Work Phone: Comment on above: Performed By: #### L 100.0100, L500.4050, L503.6005 ####[facility] [address] [place], [address] Albumin/Globulin [Mass ratio] 0.8 {ratio} Low 0.9-2.4 [facility]; [facility] Work Phone: Comment on above: Performed By: #### L 100.0100, L500.4050, L503.6005 ####[facility] [address] [place], [place], [phone] ALK P 124 U/L High 45-117 [facility]; [facility] Work Phone: Comment on above: Performed By: #### L 100.0100, L500.4050, L503.6005 ####[facility] [address] [place], [place], [phone] ALT [Catalytic activity/Vol] 15 U/L Normal 13-56 [facility]; [facility] Work Phone: Comment on above: Performed By: #### L 100.0100, L500.4050, L503.6005 ####[facility] [address] [place], [place], [phone] AST [Catalytic activity/Vol] 22 U/L Normal 15-37 [facility]; [facility] Work Phone: Comment on above: Performed By: #### L 100.0100, L500.4050, L503.6005 ####[facility] [address] [place], [place], [phone] Bilirubin [Mass/Vol] 0.40 mg/dL Normal 0.20-1.00 [facility]; [facility] Work Phone: Comment on above: Result Comment: For patients on eltrombopag therapy, use of Dimension [facility] TBIL is not recommended. Performed By: #### L 100.0100, L500.4050, L503.6005 ####[facility] [address] [place], [address] BUN/CRE 13.4 RATIO Normal 10-20 [facility] Comment on above: Performed By: #### L 100.0100, L500.4050, L503.6005 ####[facility] [address] [place], [address] CA,Total 8.9 mg/dL Normal 8.5-10.1 [facility] Comment on above: Performed By: #### L 100.0100, L500.4050, L503.6005 ####[facility] [address] [place], [address] Chloride [Moles/Vol] 105 mmol/L Normal 98-107 [facility]; [facility] Work Phone: Comment on above: Performed By: #### L 100.0100, L500.4050, L503.6005 ####[facility] [address] [place], [address] CO2 [Moles/Vol] 27.0 mmol/L Normal 21.0-32.0 [facility]; [facility] Work Phone: Comment on above: Performed By: #### L 100.0100, L500.4050, L503.6005 ####[facility] [address] [place], [address] Creatinine [Mass/Vol] 1.12 mg/dL High 0.55-1.02 [facility]; [facility] Work Phone: Comment on above: Result Comment: The validity of the calculated GFR GFRAA in patients over70 years has not been determined. Clinical correlation isessential. Performed By: #### L 100.0100, L500.4050, L503.6005 ####[facility] [address] [place], [address] EST GFR - AA 60 mL/min Normal >60 [facility].; [facility] Work Phone: Comment on above: Result Comment: Afri can Austrian GFR Calc Performed By: #### L 100.0100, L500.4050, L503.6005 ####[facility] [address] [place], [address] GAP 5 Normal 5-15 [facility]; [facility] Work Phone: Comment on above: Performed By: #### L 100.0100, L500.4050, L503.6005 ####[facility] [address] [place], [address] GFR/1.73 sq M.predicted among non-blacks MDRD (S/P/Bld) [Vol rate/Area] 49 mL/min/{1.73_m2} Low >60 [facility].; [facility] Work Phone: Comment on above: Result Comment: Non- GFR Calc Performed By: #### L 100.0100, L500.4050, L503.6005 ####[facility] [address] [place], [place], [phone] Globulin (S) [Mass/Vol] 3.9 g/dL Normal 2.2-4.2 [facility].; [facility]. Work Phone: Comment on above: Performed By: #### L 100.0100, L500.4050, L503.6005 ####[facility] [address] [place], [address] Glucose [Mass/Vol] 108 mg/dL High 74-106 [facility]; [facility] Work Phone: Comment on above: Result Comment: Fast ing Glucose result from 100 to 125 mg/dLsuggests IMPAIRED HOMEOSTASIS per A.D.A. criteria. Performed By: #### L 100.0100, L500.4050, L503.6005 ####[facility] [address] [place], [address] Potassium [Moles/Vol] 3.5 mmol/L Normal 3.5-5.1 [facility]; [facility] Work Phone: Comment on above: Performed By: #### L 100.0100, L500.4050, L503.6005 ####[facility] [address] [place], [address] Sodium [Moles/Vol] 137 mmol/L Normal 136-145 [facility]; [facility] Work Phone: Comment on above: Performed By: #### L 100.0100, L500.4050, L503.6005 ####[facility] [address] [place], [address] T PROT 6.9 g/dL Normal 6.4-8.2 [facility]; [facility] Work Phone: Comment on above: Performed By: #### L 100.0100, L500.4050, L503.6005 ####[facility] [address] [place], [place], [id number] Urea nitrogen [Mass/Vol] 15 mg/dL Normal 7-18 [facility]; [facility]. Work Phone: Comment on above: Performed By: #### L 100.0100, L500.4050, L503.6005 ####[facility] [address] [place], [address] Emergency Department Summary on 05-30-2024 Emergency Department Summary Normal [facility] Laboratory - Chemistry and C hemistry - challengeon 05-30-2024 Magnesium [Mass/Vol] 30 mg/dL Abnormal [facility]. Work Phone: Magnesium [Mass/Vol] 8.9 mg/dL Normal 8.5 - 1 0.1 mg/dL [facility]. Work Phone: Laboratory - Microbiology an d Antimicrobial susceptibilityon 05-30-2024 Bacteria identified Cx Nom (Unsp spec) 1+ Normal [facility]; [facility]. Work Phone: Laboratory - Specimen inform ationon 05-30-2024 Clarity (U) Clear Normal [facility]. Work Phone: Color (U) Yellow Normal [facility]. Work Phone: Laboratory - Urinalysison Nitrite Ql (U) Negative Normal [facility]. Work Phone: Lactic Acidon 05-30-2024 Lactate [Moles/Vol] 1.6 mmol/L Normal 0.4-1.9 [facility]; [email or web address]. Work Phone: Comment on above: Order Comment: Y Performed By: #### L 100.0100, L500.4050, L503.6005 ####[facility] [address] [place], [address] No Panel Informationon 05-30 Absolute Lymph 0.79 {X10_3/uL} Abnormal 0.83 - 4.51 {X10_3/uL} [facility].; [facility] Work Phone: Absolute Neut 3.5 {X10_3/uL} Normal 2.0 - 7.7 {X10_3/uL} [facility].; [facility], [employer]. Work Phone: BILIRUBIN URINE Negative Normal [facility].; [facility] Work Phone: BUN/CRE 13.4 {RATIO} Normal 10 - 20 {RATIO} [facility].; [facility] Work Phone: GLUCOSE, UR Normal Normal [facility].; [email or web address]. Work Phone: KETONE UR Negative Normal [facility].; [employer] ANDREAFS[employer] [facility] Work Phone: LEUK ESTERASE Negative Normal [facility].; [email or web address]. Work Phone: OCCULT BLOOD-UR Negative Normal [email or web address].; [facility] Work Phone: pH UR 6.5 Normal 5.0 - 8.0 [facility].; At[facility]ktMer[facility]One Cl[facility] Rehabilitation HospitalSchoooools.com. Work Phone: SP.GR. DIPSTX 1.010 Normal 1.002 - 1.030 [facility].; [facility]. Work Phone: UROBILI Normal Normal [email or web address]. Work Phone: Urinalysis, Completeon 05-30 Mucus Ql (Urine sed) RARE Normal [facility].; [facility]. Work Phone: Comment on above: Order Comment: CLEAN CATCH Performed By: #### L 400.0001 ####[facility] [address] [place], [address] BACTERIA 1+ /hpf Normal None Seen [facility] Comment on above: Order Comment: CLEAN CATCH Performed By: #### L 400.0001 ####[facility] [address] [place], [address] EPI,SQUAMOUS 0-5 SEEN Normal 5-10 [facility] [email or web address].; [email or web address]. Work Phone: Comment on above: Order Comment: CLEAN CATCH Performed By: #### L 400.0001 ####[facility] [address] [place], [address] WBC 0-5 SEEN Normal 0-5 [facility].; [email or web address]. Work Phone: Comment on above: Order Comment: CLEAN CATCH Performed By: #### L 400.0001 ####[facility] [address] [place], [address] RBC 0 SEEN Normal 0-5 [facility] Center[facility].; [facility]. Work Phone: Comment on above: Order Comment: CLEAN CATCH Performed By: #### L 400.0001 ####[facility] [address] [place], [address] OPERATIVE PROCEDURESon 02-15 OPERATIVE PROCEDURES [facility] OPERATIVE REPORT NAME ACCOUNT SEX AGE ADMIT DISCHARGE PT MED. 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 ANESTHETIC: Local. PRE-PROCEDURE DIAGNOSES: (1) Lumbar [...] Marcos White DO 02/05/24 12:03 JOB #: [id number] Transcribed By: tim 02/05/24 12:27 Electronically signed by: E-SIGN: MARCOS WHITE 02/16/24 07:40 Page 2 of 2 SAPNA BULLARD Operative Report Normal [facility] C-ARM USAGE 1 HOUR 024 C-ARM USAGE 1 HOUR [place] [id number] [place] [id number] Patient: SAPNA BULLARD. Phone#: : 1940 Age: 84 Gender: F Pt. Type: Out Account: [id number] Location: [id number] Ordering: MARCOS WHITE Exam Date: 02/05/2024/11:01 Family Phys: NICCI LEMUS Charge Code: 132186 Physician: Kimble Order #: [id number] Dose#: PROCEDURE: C-ARM USEAGE 1 HR COMPARISON: [facility], C-ARM USEAGE 1 HR, 10/08/2023, 8:09. INDICATIONS: [...] Alston MD on 02/05/2024 at 16:03 Normal [facility] Automated blood erythrocyte count (number/volume)Ordered By: Vish Cook on 08-17-2023 RBC (Bld) [#/Vol] 4.32 10*6/uL Normal 4.2 - 5.4 {M/mm3} [facility] Automated blood hematocrit ( percentage)Ordered By: Vish Cook on 08-17-2023 Hematocrit (Bld) [Volume fraction] 37.9 % Normal 37 - 47 [facility] Basophil percentageOrdered B y: Vish Cook on 08-17-2023 Bilirubin [Mass/Vol] 0.30 mg/dL Normal 0.20 - 1.00 mg/dL [facility] Comment on above: For patients on eltr ombopag therapy, use of [facility] TBIL is not recommended. Chloride [Moles/Vol] 104 mmol/L Normal 98 - 10 7 mmol/L [facility] Glucose [Mass/Vol] 92 mg/dL Normal 74 - 106 mg/dL [facility] Hemoglobin (Bld) [Mass/Vol] 11.7 g/dL Abnormal 12.0 - 15.0 g/dL [facility] Potassium [Moles/Vol] 3.9 mmol/L Normal 3.5 - 5.1 mmol/L [facility] Protein [Mass/Vol] 7.2 g/dL 6.4-8.2 [facility] Sodium [Moles/Vol] 138 mmol/L Normal 136 - 145 mmol/L [facility] WBC (Bld) [#/Vol] 11.0 10*3/uL Normal 4.4 - 11.0 K/mm3 [facility] Determination of erythrocyte mean corpuscular volume (MCV)Ordered By: Vishsushila Cook on 08-17-2023 MCV (RBC) [Entitic vol] 87.7 fL Normal 81 - 99 fL [facility] Erythrocyte distribution wid th ratioOrdered By: [facility] on 08-17-2023 Erythrocyte distribution width (RBC) [Ratio] 14.7 % Abnormal 11.6 - 14.6 [facility] Erythrocyte distribution wid th standard deviationOrdered By: [facility] on 08-17-2023 Erythrocyte distribution width (RBC) [Entitic vol] 47.1 fL 35.1-43.9 [facility] Laboratory - Chemistry and C hemistry - challengeon 08-17-2023 Albumin [Mass/Vol] 3.0 g/dL Abnormal 3.2 - 5.0 g/dL [email or web address]. Work Phone: AST [Catalytic activity/Vol] 19 U/L Normal 15 - 37 U/L [facility]; [facility] Work Phone: GFR/1.73 sq M.predicted among non-blacks MDRD (S/P/Bld) [Vol rate/Area] 59 mL/min/{1.73_m2} Abnormal [email or web address]. Work Phone: Magnesium [Mass/Vol] 9.9 mg/dL Normal 8.5 - 1 0.1 mg/dL [facility].; [email or web address] Work Phone: Laboratory - Chemistry and C hemistry - challengeOrdered By: Vish Cook on 08-17-2023 Albumin/Globulin [Mass ratio] 0.7 {ratio} Abnormal 0.9 - 2.4 {RATIO} [facility] ALP [Catalytic activity/Vol] 138 U/L 45-117 [facility] ALT [Catalytic activity/Vol] 17 U/L Normal 13 - 56 U/L [facility] CO2 [Moles/Vol] 29.0 mmol/L Normal 21.0 - 32.0 mmol/L [facility] Globulin (S) [Mass/Vol] 4.2 g/dL Normal 2.2 - 4.2 g/dL [facility] Urea nitrogen/Creatinine [Mass ratio] 17.8 mg/mg 10-20 [facility] Laboratory - Hematology and Cell countsOrdered By: Vish Cook on 08-17-2023 MCH (RBC) [Entitic mass] 27.1 pg Normal 27.0 - 32.0 pg [facility] MCHC (RBC) [Mass/Vol] 30.9 g/dL Abnormal 32 - 3 6 g/dL [facility] Platelet mean volume (Bld) [Entitic vol] 8.6 fL Normal 6.2 - 12.0 fL [facility] Platelets (Bld) [#/Vol] 440 10*3/uL Normal 150 - 450 K/mm3 [facility] No Panel Informationon 08-16 ALK P 138 U/L Abnormal 45 - 117 U/L [facility].; [email or web address]. Work Phone: BUN/CRE 17.8 {RATIO} Normal 10 - 20 {RATIO} [facility] HospitalO[facility]; [facility] Work Phone: EST GFR - AA 72 mL/min Normal [facility]; [facility] Work Phone: GAP 5 Normal 5 - 15 [facility]; [facility]. Work Phone: RDW SD 47.1 fL Abnormal 35.1 - 43.9 fL [facility] Work Phone: T PROT 7.2 g/dL Normal 6.4 - 8.2 g/dL [facility]; [facility] Work Phone: No Panel InformationOrdered By: Vish Cook on 08-17-2023 Estimated GFR (MDRD) Amer 72 mL/min >60 [facility] Comment on above: GFR Calc Estimated GFR (MDRD) Non-Af Amer 59 mL/min >60 [facility] Comment on above: Non- GFR Calc Serum or plasma calcium candice urement (mass/volume)Ordered By: Vish Cook on 08-17-2023 Calcium [Mass/Vol] 9.9 mg/dL 8.5-10.1 [facility] Serum or plasma creatinine m easurement (mass/volume)Ordered By: Vish Cook on 08-17-2023 Creatinine [Mass/Vol] 0.96 mg/dL Normal 0.55 - 1.02 mg/dL [facility] Comment on above: The validity of the calculated GFR & GFRAA in patients over 70 years has not been determined. Clinical correlation is essential. Serum or plasma urea nitroge n measurement (mass/volume)Ordered By: Vish Cook on 08-17-2023 Urea nitrogen [Mass/Vol] 17 mg/dL Normal 7 - 18 mg/dL [facility] Thin prep Papanicolaou smear with manual screeningOrdered By: Vish Cook on 08-17-2023 Thin prep Papanicolaou smear with manual screening 3.0 g/dL 3.2-5.0 [facility] Thin prep Papanicolaou smear with manual screening 19 U/L 15-37 [facility] Thin prep Papanicolaou smear with manual screening 5 5-15 [facility] Basophil percentageOrdered B y: Vish Cook on 08-14-2023 Basophil percentage 0 SEEN /hpf 0-5 [facility] Bilirubin Test strip Ql (U)O rdered By: Vish Cook on 08-14-2023 Bilirubin Ql (U) Negative Negative [facility] Culture, urineOrdered By: Ra destinee Cook on 08-14-2023 Bacteria identified Cx Nom (U) Culture exhibits no growth. [facility] Ketones Test strip Ql (U)Ord ered By: Vish Cook on 08-14-2023 Ketones Ql (U) Negative Negative [facility] Laboratory - Microbiology an d Antimicrobial susceptibilityon 08-14-2023 Bacteria identified Cx Nom (Unsp spec) 0 SEEN Normal [facility]; [facility] Work Phone: Laboratory - Urinalysison Mucus Ql (Urine sed) 0 SEEN Normal [facility]; [facility] Work Phone: Mucus LM Ql (Urine sed)Order ed By: Vish Cook on 08-14-2023 Mucus Ql (Urine sed) 0 SEEN /hpf [facility] Nitrite ur dipstickOrdered B y: Vish Cook on 08-14-2023 Nitrite Ql (U) Negative Normal [facility] No Panel InformationOrdered By: Vish Cook on 08-14-2023 Urine RBC 0 SEEN /hpf 0-5 [facility] No Panel Informationon 08-13 BILIRUBIN URINE Negative Normal [facility]; [facility] Work Phone: EPI,SQUAMOUS 0 SEEN Normal 5 - 10 {/hpf} [facility]; [facility] Work Phone: GLUCOSE, UR Normal Normal [facility]; [facility] Work Phone: KETONE UR Negative Normal [facility]; [facility]. Work Phone: LEUK ESTERASE Negative Normal [facility]. Work Phone: OCCULT BLOOD-UR Negative Normal [facility].; [facility]. Work Phone: pH UR 5.0 Normal 5.0 - 8.0 [facility]; [facility] Work Phone: PROT DIPSTX Negative Normal [facility], [facility]. Work Phone: RBC 0 SEEN Normal 0 - 5 {/hpf} [facility].; [facility]. Work Phone: SP.GR. DIPSTX 1.010 Normal 1.002 - 1.030 [facility].; [facility] Work Phone: URC See Note Normal [facility]. Work Phone: UROBILI Normal Normal [facility].; [facility] Work Phone: WBC 0 SEEN Normal 0 - 5 {/hpf} [facility], [facility] Work Phone: Protein Test strip Ql (U)Ord ered By: Vish Cook on 08-14-2023 Protein Ql (U) Negative Negative [facility] Squamous epithelial cells de tection in urine sediment by light microscopyOrdered By: Vish Cook on 08-14-2023 Epithelial cells.squamous LM Ql (Urine sed) 0 SEEN /hpf 5-10 [facility] Urine blood detectionOrdered By: Vish Cook on 08-14-2023 RBC Ql (U) Negative Negative [facility] Urine clarityOrdered By: Vahe Cook on 08-14-2023 Clarity (U) Clear Normal [facility] Urine color determinationOrd ered By: Vish Cook on 08-14-2023 Color (U) Yellow Normal [facility] Urine glucose detectionOrder ed By: Vish Cook on 08-14-2023 Glucose Ql (U) Normal mg/dl Normal [facility] Urine leukocyte esterase det ection by dipstickOrdered By: Vish Cook on 08-14-2023 Leukocyte esterase Test strip Ql (U) Negative Negative [facility] Urine pHOrdered By: Vish Cook on 08-14-2023 pH (U) 5.0 [pH] 5.0 - 8.0 [facility] Urine sediment bacteria coun t by microscopy (number/high power field)Ordered By: Vish Cook on 08-14-2023 Bacteria LM.HPF (Urine sed) [#/Area] 0 /[HPF] None Seen [facility] Urine specific gravity measu rementOrdered By: Vish Cook on 08-14-2023 Specific gravity (U) [Rel density] 1.010 1.002-1.03 0 [facility] Urine urobilinogen measureme ntOrdered By: Vish Cook on 08-14-2023 Urobilinogen Ql (U) Normal mg/dl Normal [facility] Basophil percentageOrdered B y: Vish Cook on 05-25-2023 Potassium [Moles/Vol] 3.8 mmol/L Normal 3.5 - 5.1 mmol/L [facility] Absolute lymphocyte countOrd ered By: Pravin Cruz on 04-20-2023 Lymphocytes Auto (Unsp spec) [#/Vol] 1.38 10*3/uL 0.83-4.51 [facility] Automated blood hematocrit ( percentage)Ordered By: Pravin Cruz on 04-20-2023 Hematocrit (Bld) [Volume fraction] 31.2 % Abnormal 37 - 47 [facility] Basophil percentageOrdered B y: Pravin Cruz on 04-20-2023 Basophils/100 WBC (Bld) 0.3 % Normal 0 - 1 [facility] Chloride [Moles/Vol] 103 mmol/L Normal 98 - 10 7 mmol/L [facility] Eosinophils/100 WBC (Bld) 1.0 % Normal 0 - 5 [facility] Glucose [Mass/Vol] 92 mg/dL Normal 74 - 106 mg/dL [facility] Neutrophils (Bld) [#/Vol] 5.2 10*3/uL 2.0-7.7 [facility] Neutrophils/100 WBC (Bld) 65.0 % Normal 47 - 70 [facility] Potassium [Moles/Vol] 3.2 mmol/L Abnormal 3.5 - 5.1 mmol/L [facility] Sodium [Moles/Vol] 135 mmol/L Abnormal 136 - 145 mmol/L [facility] WBC (Bld) [#/Vol] 8.0 10*3/uL Normal 4.4 - 11.0 K/mm3 [facility] Blood erythrocytes count (nu mber/volume)Ordered By: Pravin Cruz on 04-20-2023 RBC (Bld) [#/Vol] 3.61 10*6/uL Abnormal 4.2 - 5.4 {M/mm3} [facility] Blood hemoglobin measurement (mass/volume)Ordered By: Pravin Cruz on 04-20-2023 Hemoglobin (Bld) [Mass/Vol] 10.0 g/dL Abnormal 12.0 - 15.0 g/dL [facility] Blood lymphocytes/100 leukoc ytesOrdered By: Pravin Cruz on 04-20-2023 Lymphocytes/100 WBC (Bld) 17.3 % Abnormal 19 - 41 [facility] Blood monocytes/100 leukocyt esOrdered By: Pravin Cruz on 04-20-2023 Monocytes/100 WBC (Bld) 16.0 % Abnormal 0 - 10 [facility] Blood platelet mean volumeOr dered By: Pravin Cruz on 04-20-2023 Platelet mean volume (Bld) [Entitic vol] 9.1 fL Normal 6.2 - 12.0 fL [facility] Determination of erythrocyte mean corpuscular volume (MCV)Ordered By: Pravin Cruz on 04-20-2023 MCV (RBC) [Entitic vol] 86.4 fL Normal 81 - 99 fL [facility] Laboratory - Chemistry and C hemistry - challengeon 04-20-2023 GFR/1.73 sq M.predicted among non-blacks MDRD (S/P/Bld) [Vol rate/Area] 71 mL/min/{1.73_m2} Normal [facility]; [facility] Work Phone: Magnesium [Mass/Vol] 8.2 mg/dL Abnormal 8.5 - 1 0.1 mg/dL [facility]; [facility] Work Phone: Laboratory - Chemistry and C hemistry - challengeOrdered By: Pravin Cruz on 04-20-2023 CO2 [Moles/Vol] 25.0 mmol/L Normal 21.0 - 32.0 mmol/L [facility] Urea nitrogen/Creatinine [Mass ratio] 19.6 mg/mg 10-20 [facility] - Hematology and Cell countson 04-20-2023 Nucleated RBC (Bld) [#/Vol] 0 10*3/uL Normal 0 - 5 [facility]; [facility] Work Phone: Laboratory - Hematology and Cell countsOrdered By: Pravin Cruz on 04-20-2023 Erythrocyte distribution width (RBC) [Entitic vol] 42.5 fL 35.1-43.9 [facility] Erythrocyte distribution width (RBC) [Ratio] 13.4 % Normal 11.6 - 14.6 [facility] Immature granulocytes/100 WBC (Bld) 0.400 % 0.0-0.9 [facility] Comment on above: IG% - Immature Granu locytes (promyelocytes, myelocytes and metamyelocytes) > 1% indicates that a LEFT SHIFT is Present. MCH (RBC) [Entitic mass] 27.7 pg Normal 27.0 - 32.0 pg [facility] Nucleated RBC/100 WBC (Bld) [Ratio] 0 % 0-5 [facility] MCHC [Mass/volume] by Automa jose maria countOrdered By: Pravin Cruz on 04-20-2023 MCHC (RBC) [Mass/Vol] 32.1 g/dL Normal 32 - 3 6 g/dL [facility] No Panel Informationon 04-20 Absolute Lymph 1.38 {X10_3/uL} Normal 0.83 - 4.51 {X10_3/uL} [facility].; [email or web address]. Work Phone: Absolute Neut 5.2 {X10_3/uL} Normal 2.0 - 7.7 {X10_3/uL} [facility].; [email or web address]. Work Phone: BUN/CRE 19.6 {RATIO} Normal 10 - 20 {RATIO} [facility].; [facility]. Work Phone: ECRCL 41.00 ml/min Normal [facility].; [facility]. Work Phone: EST GFR - AA 86 mL/min Normal [facility].; [email or web address]. Work Phone: GAP 7 Normal 5 - 15 [facility]; [email or web address]. Work Phone: IG% 0.400 Normal 0.0 - 0.9 [facility]; [facility] [employer] [email or web address] Work Phone: RDW SD 42.5 fL Normal 35.1 - 43.9 fL [email or web address].; [employer] - [facility] Work Phone: No Panel InformationOrdered By: Pravin Cruz on 04-20-2023 Estimated Creatinine Clearance Calc 41.00 ml/min [facility] Estimated GFR (MDRD) Amer 86 mL/min >60 [facility] Comment on above: GFR Calc Estimated GFR (MDRD) Non-Af Amer 71 mL/min >60 [facility] Comment on above: Non- GFR Calc Platelets bldOrdered By: Sal[place] Cruz on 04-20-2023 Platelets (Bld) [#/Vol] 291 10*3/uL Normal 150 - 450 K/mm3 [facility] Serum or plasma calcium candice urement (mass/volume)Ordered By: Pravin Cruz on 04-20-2023 Calcium [Mass/Vol] 8.2 mg/dL 8.5-10.1 [facility] Serum or plasma creatinine m easurement (mass/volume)Ordered By: Pravin Cruz on 04-20-2023 Creatinine [Mass/Vol] 0.82 mg/dL Normal 0.55 - 1.02 mg/dL [facility] Comment on above: The validity of the calculated GFR & GFRAA in patients over 70 years has not been determined. Clinical correlation is essential. Serum or plasma urea nitroge n measurement (mass/volume)Ordered By: Pravin Cruz on 04-20-2023 Urea nitrogen [Mass/Vol] 16 mg/dL Normal 7 - 18 mg/dL [facility] Thin prep Papanicolaou smear with manual screeningOrdered By: Pravin Cruz on 04-20-2023 Thin prep Papanicolaou smear with manual screening 7 5-15 [facility] Basophil percentageOrdered B y: Karon White on 04-17-2023 Bilirubin [Mass/Vol] 0.40 mg/dL Normal 0.20 - 1.00 mg/dL [facility] Comment on above: For patients on eltr ombopag therapy, use of [facility] TBIL is not recommended. Protein [Mass/Vol] 5.8 g/dL 6.4-8.2 [facility] Culture, urineOrdered By: Do art Cohen on 04-17-2023 Bacteria identified Cx Nom (U) Presumptive E. coli [facility] Laboratory - Chemistry and C hemistry - challengeon 04-17-2023 AST [Catalytic activity/Vol] 16 U/L Normal 15 - 37 U/L [facility]; [facility] Work Phone: Chloride [Moles/Vol] 108 mmol/L Abnormal 98 - 10 7 mmol/L [facility]; [facility] Work Phone: CO2 [Moles/Vol] 25.0 mmol/L Normal 21.0 - 32.0 mmol/L [facility]; [facility] Work Phone: Creatinine [Mass/Vol] 0.88 mg/dL Normal 0.55 - 1.02 mg/dL [facility]; [facility] Work Phone: GFR/1.73 sq M.predicted among non-blacks MDRD (S/P/Bld) [Vol rate/Area] 66 mL/min/{1.73_m2} Normal [facility]; [facility] Work Phone: Glucose [Mass/Vol] 86 mg/dL Normal 74 - 106 mg/dL [facility]; [facility] Work Phone: Magnesium [Mass/Vol] 7.9 mg/dL Abnormal 8.5 - 1 0.1 mg/dL [facility]; [facility] Work Phone: Potassium [Moles/Vol] 3.8 mmol/L Normal 3.5 - 5.1 mmol/L [facility]; [facility] Work Phone: Sodium [Moles/Vol] 138 mmol/L Normal 136 - 145 mmol/L [facility]; [facility] Work Phone: Urea nitrogen [Mass/Vol] 10 mg/dL Normal 7 - 18 mg/dL [facility]; [facility] Work Phone: Laboratory - Chemistry and C hemistry - challengeOrdered By: Karon Nunes on 04-17-2023 ALP [Catalytic activity/Vol] 101 U/L 45-117 [facility] ALT [Catalytic activity/Vol] 12 U/L Abnormal 13 - 56 U/L [facility] Globulin (S) [Mass/Vol] 3.3 g/dL Normal 2.2 - 4.2 g/dL [facility] Laboratory - Hematology and Cell countson 04-17-2023 Basophils/100 WBC (Bld) 0.6 % Normal 0 - 1 [facility]; [facility] Work Phone: Eosinophils/100 WBC (Bld) 0.6 % Normal 0 - 5 [facility]; [facility] Work Phone: Erythrocyte distribution width (RBC) [Ratio] 13.3 % Normal 11.6 - 14.6 [facility]; [facility] Work Phone: Hematocrit (Bld) [Volume fraction] 32.4 % Abnormal 37 - 47 [facility]; [facility] Work Phone: Hemoglobin (Bld) [Mass/Vol] 9.9 g/dL Abnormal 12.0 - 15.0 g/dL [facility]; [facility] Work Phone: Lymphocytes/100 WBC (Bld) 13.6 % Abnormal 19 - 41 [facility]; [facility] Work Phone: MCH (RBC) [Entitic mass] 27.3 pg Normal 27.0 - 32.0 pg [facility]; [facility] Work Phone: MCHC (RBC) [Mass/Vol] 30.6 g/dL Abnormal 32 - 3 6 g/dL [facility]; [facility]. Work Phone: MCV (RBC) [Entitic vol] 89.5 fL Normal 81 - 99 fL [facility]; [facility] Work Phone: Monocytes/100 WBC (Bld) 11.3 % Abnormal 0 - 10 [facility]; [facility]. Work Phone: Neutrophils/100 WBC (Bld) 73.6 % Abnormal 47 - 70 [facility]; [facility]. Work Phone: Nucleated RBC (Bld) [#/Vol] 0 10*3/uL Normal 0 - 5 [facility]; [facility]. Work Phone: Platelet mean volume (Bld) [Entitic vol] 9.0 fL Normal 6.2 - 12.0 fL [facility]; [facility]. Work Phone: Platelets (Bld) [#/Vol] 302 10*3/uL Normal 150 - 450 K/mm3 [facility]; [facility] Work Phone: RBC (Bld) [#/Vol] 3.62 10*6/uL Abnormal 4.2 - 5.4 {M/mm3} [facility].; [email or web address]. Work Phone: WBC (Bld) [#/Vol] 6.9 10*3/uL Normal 4.4 - 11.0 K/mm3 [facility].; [email or web address]. Work Phone: No Panel Informationon 04-17 Absolute Lymph 0.94 {X10_3/uL} Normal 0.83 - 4.51 {X10_3/uL} [facility].; [email or web address]. Work Phone: Absolute Neut 5.1 {X10_3/uL} Normal 2.0 - 7.7 {X10_3/uL} [facility] [email or web address].; [employer] [email or web address]. Work Phone: ALK P 101 U/L Normal 45 - 117 U/L [facility].; [email or web address]. Work Phone: BUN/CRE 11.4 {RATIO} Normal 10 - 20 {RATIO} [facility].; [employer] [email or web address]. Work Phone: ECRCL 37.44 ml/min Normal [facility].; [employer] [email or web address]. Work Phone: EST GFR - AA 79 mL/min Normal [facility].; [facility] CENTERMobileDevHQ [email or web address]. Work Phone: GAP 5 Normal 5 - 15 [facility].; [facility] [employer] [facility] [email or web address]. Work Phone: IG% 0.300 Normal 0.0 - 0.9 [facility].; [facility] CENTERMosaic Life Care at St[facility] JosephConstant [facility] Work Phone: RDW SD 43.8 fL Normal 35.1 - 43.9 fL [facility]; [facility] Work Phone: T PROT 5.8 g/dL Abnormal 6.4 - 8.2 g/dL [facility]; [facility] Work Phone: No Panel InformationOrdered By: Karon Nunes on 04-17-2023 Streptococcus pneumoniae Antigen (M [facility] Respiratory pathogens detect ion panel by molecular detection methodOrdered By: Karon Nunes on 04-17-2023 Respiratory pathogens DNA and RNA panel ZAID+probe (Resp) [facility] Serum or plasma albumin candice urement (mass/volume)Ordered By: Karon Nunes on 04-17-2023 Albumin [Mass/Vol] 2.5 g/dL Abnormal 3.2 - 5.0 g/dL [facility] Serum or plasma albumin/glob ulin mass ratioOrdered By: Karon Nunes on 04-17-2023 Albumin/Globulin [Mass ratio] 0.8 {ratio} Abnormal 0.9 - 2.4 {RATIO} [facility] Thin prep Papanicolaou smear with manual screeningOrdered By: Karon Nunes on 04-17-2023 Thin prep Papanicolaou smear with manual screening 16 U/L 15-37 [facility] Urine Legionella pneumophila antigen detectionOrdered By: Karon Nunes on 04-17-2023 L. pneumophila Ag Ql (U) [facility] Basophil percentageOrdered B y: Nicholas Cohen on 04-16-2023 Basophil percentage 10-25 SEEN /hpf 0-5 [facility] Bilirubin Test strip Ql (U)O rdered By: Nicholas Cohen on 04-16-2023 Bilirubin Ql (U) Negative Negative [facility] Ketones Test strip Ql (U)Ord ered By: Nicholas Cohen on 04-16-2023 Ketones Ql (U) Negative Negative [facility] Laboratory - Chemistry and C hemistry - challengeOrdered By: Karon Nunes on 04-16-2023 Magnesium [Mass/Vol] 2.0 mg/dL Normal 1.6 - 2 .6 mg/dL [facility] Laboratory - Chemistry and C hemistry - challengeon 04-16-2023 Albumin [Mass/Vol] 3.1 g/dL Abnormal 3.2 - 5.0 g/dL [facility]; [facility] Work Phone: Albumin/Globulin [Mass ratio] 0.8 {ratio} Abnormal 0.9 - 2.4 {RATIO} [facility]; [facility] Work Phone: ALT [Catalytic activity/Vol] 17 U/L Normal 13 - 56 U/L [facility]; [facility] Work Phone: AST [Catalytic activity/Vol] 18 U/L Normal 15 - 37 U/L [facility]; [facility] Work Phone: Bilirubin [Mass/Vol] 0.50 mg/dL Normal 0.20 - 1.00 mg/dL [facility]; [facility] Work Phone: Chloride [Moles/Vol] 101 mmol/L Normal 98 - 10 7 mmol/L [facility]; [facility] Work Phone: CO2 [Moles/Vol] 29.0 mmol/L Normal 21.0 - 32.0 mmol/L [facility]; [facility] Work Phone: Creatinine [Mass/Vol] 0.95 mg/dL Normal 0.55 - 1.02 mg/dL [facility]; [facility] Work Phone: GFR/1.73 sq M.predicted among non-blacks MDRD (S/P/Bld) [Vol rate/Area] 60 mL/min/{1.73_m2} Normal [facility]; [facility] Work Phone: Globulin (S) [Mass/Vol] 3.9 g/dL Normal 2.2 - 4.2 g/dL [facility]; [facility] Work Phone: Glucose [Mass/Vol] 100 mg/dL Normal 74 - 106 mg/dL [facility]; [facility] Work Phone: Magnesium [Mass/Vol] 15 mg/dL Abnormal [facility]; [facility] Work Phone: Magnesium [Mass/Vol] 8.7 mg/dL Normal 8.5 - 1 0.1 mg/dL [facility]; [facility] Work Phone: Potassium [Moles/Vol] 3.3 mmol/L Abnormal 3.5 - 5.1 mmol/L [facility]; [facility] Work Phone: Sodium [Moles/Vol] 135 mmol/L Abnormal 136 - 145 mmol/L [facility]; [facility] Work Phone: Urea nitrogen [Mass/Vol] 14 mg/dL Normal 7 - 18 mg/dL [facility]; [facility] Work Phone: Laboratory - Microbiology an d Antimicrobial susceptibilityon 04-16-2023 Bacteria identified Cx Nom (Unsp spec) 1+ Normal [facility]; [facility] Work Phone: L. pneumophila Ag Ql (U) See Note Normal [facility]; [facility], [facility]. Work Phone: Respiratory pathogens DNA and RNA 12b panel ZAID+probe (Unsp spec) See Note Normal [facility].; [facility], [facility]. Work Phone: S. pneumoniae Ag LA Ql (Unsp spec) See Note Normal [facility].; [facility], [facility]. Work Phone: Laboratory - Urinalysison Mucus Ql (Urine sed) 0 SEEN Normal [facility].; [facility] [place]. Work Phone: Mucus LM Ql (Urine sed)Order ed By: Nicholas Cohen on 04-16-2023 Mucus Ql (Urine sed) 0 SEEN /hpf [facility] Nitrite ur dipstickOrdered B y: Nicholas Cohen on 04-16-2023 Nitrite Ql (U) Negative Normal [facility] No Panel InformationOrdered By: Nicholas Cohen on 04-16-2023 Troponin I High Sensitivity 14 pg/mL 3.0-54.0 [facility] Comment on above: Please Note: New Shaniqua t Units and Gender Specific Reference Ranges. For more information see Policy Stat Procedure [facility] High Sensitivity Troponin (TNIH) and attachments. No Panel Informationon 04-16 ALK P 117 U/L Normal 45 - 117 U/L [facility].; [facility]. Work Phone: BILIRUBIN URINE Negative Normal [facility].; [facility], [facility]. Work Phone: BUN/CRE 14.7 {RATIO} Normal 10 - 20 {RATIO} [facility].; [facility], [facility]. Work Phone: ECRCL 34.69 ml/min Normal [facility].; [facility]. Work Phone: EPI,SQUAMOUS 0 SEEN Normal 5 - 10 {/hpf} [facility]; [facility]. Work Phone: EST GFR - AA 72 mL/min Normal [facility].; [facility]. Work Phone: GAP 5 Normal 5 - 15 [facility]; [facility]. Work Phone: GLUCOSE, UR Normal Normal [facility]; [facility]. Work Phone: KETONE UR Negative Normal [facility]; [facility]. Work Phone: LEUK ESTERASE 500 /ul Abnormal [facility]; [facility]. Work Phone: [phone] See Note Normal [facility]; [facility]. Work Phone: OCCULT BLOOD-UR 25 /ul Abnormal [facility]; [facility]. Work Phone: pH UR 7.0 Normal 5.0 - 8.0 [facility]; [facility]. Work Phone: RBC 0-5 SEEN Normal 0 - 5 {/hpf} [facility]; [facility], [facility]. Work Phone: SP.GR. DIPSTX 1.010 Normal 1.002 - 1.030 [facility]; [facility] Work Phone: T PROT 7.0 g/dL Normal 6.4 - 8.2 g/dL [facility].; [facility]. Work Phone: TROPONIN-I HS 14 pg/mL Normal 3.0 - 54.0 pg/mL [facility].; [facility]. Work Phone: URC See Note Normal [facility].; [facility]. Work Phone: UROBILI Normal Normal [facility].; [facility]. Work Phone: WBC 10-25 SEEN Normal 0 - 5 {/hpf} [facility].; [facility] Work Phone: Protein Test strip Ql (U)Ord ered By: Nicholas Cohen on 04-16-2023 Protein Ql (U) 15 mg/dl Negative [facility] Squamous epithelial cells de tection in urine sediment by light microscopyOrdered By: Nicholas Cohen on 04-16-2023 Epithelial cells.squamous LM Ql (Urine sed) 0 SEEN /hpf 5-10 [facility] Urine blood detectionOrdered By: Nicholas Cohen on 04-16-2023 RBC Ql (U) 25 /ul Negative [facility] RBC Ql (U) 0-5 SEEN /hpf 0-5 [facility] Urine clarityOrdered By: Geremias Cohen on 04-16-2023 Clarity (U) Sl. Cloudy Normal [facility] Urine color determinationOrd ered By: Nicholas Cohen on 04-16-2023 Color (U) Yellow Normal [facility] Urine glucose detectionOrder ed By: Nicholas Cohen on 04-16-2023 Glucose Ql (U) Normal mg/dl Normal [facility] Urine leukocyte esterase det ection by dipstickOrdered By: Nicholas Cohen on 04-16-2023 Leukocyte esterase Test strip Ql (U) 500 /ul Negative [facility] Urine pHOrdered By: Nicholas bishop on 04-16-2023 pH (U) 7.0 [pH] 5.0 - 8.0 [facility] Urine sediment bacteria coun t by microscopy (number/high power field)Ordered By: Nicholas Cohen on 04-16-2023 Bacteria LM.HPF (Urine sed) [#/Area] 1 /[HPF] None Seen [facility] Urine specific gravity measu rementOrdered By: Nicholas Cohen on 04-16-2023 Specific gravity (U) [Rel density] 1.010 1.002-1.03 0 [facility] Urobilinogen Auto test strip Ql (U)Ordered By: Nicholas Cohen on 04-16-2023 Urobilinogen Ql (U) Normal mg/dl Normal [facility] Culture, urineOrdered By: Julia Grigsby on 04-06-2023 Bacteria identified Cx Nom (U) GPC Poss Enterococcus sp [facility] Basophil percentageOrdered B y: Elliott Grigsby on 04-05-2023 Basophil percentage 0-5 SEEN /hpf 0-5 [facility] Comment on above: Previous reported re sult: 0 SEEN /hpfEdited by: KAMAR on 04/05/23:1616 AMENDED REPORT 04/05/23 1616 WBC previously reported as: 0 SEEN /hpf Bilirubin Test strip Ql (U)O rdered By: Elliott Grigsby on 04-05-2023 Bilirubin Ql (U) 1 mg/dL Negative [facility] Comment on above: COLOR OF URINE MAY A FFECT DIPSTICK RESULTS. Calcium oxalate crystals det ection in urine sediment by light microscopyOrdered By: Elliott Grigsby on 04-05-2023 Calcium oxalate crystals LM Ql (Urine sed) 2+ /hpf [facility] Hyaline casts LM.LPF (Urine sed) [#/Area]Ordered By: Elliott Grigsby on 04-05-2023 Hyaline casts (Urine sed) [#/Area] 0 /[LPF] 0-5 [facility] Ketones Test strip Ql (U)Ord ered By: Elliott Grigsby on 04-05-2023 Ketones Ql (U) Negative Negative [facility] Laboratory - Chemistry and C hemistry - challengeon 04-05-2023 Bilirubin Ql (U) Small (1+) [facility] Glucose Ql (U) Negative [facility] Ketones Ql (U) Small (15+) [facility] pH (U) 5.0 [pH] [facility] Specific gravity (U) [Rel density] 1.015 [facility] Urobilinogen (U) [Mass/Vol] 1 mg/dL [facility] Laboratory - Hematology and Cell countson 04-05-2023 Hemoglobin Ql (U) Negative [facility] Laboratory - Specimen inform ationon 04-05-2023 Clarity (U) Clear [facility] Color (U) Opal [facility] Laboratory - Urinalysison Nitrite Ql (U) Positive [facility] Protein Ql (U) 3+ [facility] Magnesium ammonium phosphate crystal detectionOrdered By: Elliott Grigsby on 04-05-2023 Triple phosphate crystals LM Ql (Urine sed) 0 SEEN /hpf [facility] Mucus LM Ql (Urine sed)Order ed By: Elliott Grigsby on 04-05-2023 Mucus Ql (Urine sed) 0 SEEN /hpf [facility] Nitrite Test strip Ql (U)Ord ered By: Elliott Grigsby on 04-05-2023 Nitrite Ql (U) Negative Negative [facility] No Panel InformationOrdered By: Elliott Grigsby on 04-05-2023 Urine Transitional Epithelial Cells 0 SEEN /hpf 0-5 [facility] No Panel Informationon 04-05 Urine Leukocytes Negatve [facility] Urine Non-Hemolyzed Blood [facility] Protein Test strip Ql (U)Ord ered By: Elliott Grigsby on 04-05-2023 Protein Ql (U) 30 mg/dl Negative [facility] Squamous epithelial cells de tection in urine sediment by light microscopyOrdered By: Elliott Grigsby on 04-05-2023 Epithelial cells.squamous LM Ql (Urine sed) 0-5 SEEN /hpf 5-10 [facility] Comment on above: Previous reported re sult: 0 SEEN /hpfEdited by: KAMAR on 04/05/23:1616 AMENDED REPORT 04/05/23 1616 SQUAM EPI previously reported as: 0 SEEN /hpf Urine blood detectionOrdered By: Elliott Grigsby on 04-05-2023 RBC Ql (U) 10 /ul Negative [facility] RBC Ql (U) 0 SEEN /hpf 0-5 [facility] Urine clarityOrdered By: Skyler Grigsby on 04-05-2023 Clarity (U) Clear Clear [facility] Urine coarse granular cast d etectionOrdered By: Elliott Grigsby on 04-05-2023 Coarse Granular Casts LM Ql (Urine sed) 0 SEEN /lpf 0-5 /lpf [facility] Urine color determinationOrd ered By: Elliott Grigsby on 04-05-2023 Color (U) Yellow Yellow [facility] Urine glucose detectionOrder ed By: Elliott Grigsby on 04-05-2023 Glucose Ql (U) Normal mg/dl Normal [facility] Urine leukocyte esterase det ection by dipstickOrdered By: Elliott Grigsby on 04-05-2023 Leukocyte esterase Test strip Ql (U) 25 /ul Negative [facility] Urine pHOrdered By: Elliott dickerson on 04-05-2023 pH (U) 6.0 [pH] 5.0 - 8.0 [facility] Urine sediment bacteria coun t by microscopy (number/high power field)Ordered By: Elliott Grigsby on 04-05-2023 Bacteria LM.HPF (Urine sed) [#/Area] 0 /[HPF] None Seen [facility] Urine sediment erythrocyte c ast detection by light microscopyOrdered By: Elliott Grigsby on 04-05-2023 RBC casts LM Ql (Urine sed) 0 SEEN /lpf None Seen [facility] Urine sediment fine granular cast count by microscopy (number/low power field)Ordered By: Elliott Grigsby on 04-05-2023 Fine Granular Casts LM.LPF (Urine sed) [#/Area] 0 SEEN /lpf 0-5 [facility] Urine sediment leukocyte bianca t count by microscopy (number/low power field)Ordered By: Elliott Grigsby on 04-05-2023 WBC casts LM.LPF (Urine sed) [#/Area] 0 SEEN /lpf None Seen [facility] Urine sediment renal epithel ial cell count by microscopy (number/high power field)Ordered By: Elliott Grigsby on 04-05-2023 Epithelial cells.renal LM.HPF (Urine sed) [#/Area] 0 /[HPF] 0-5 [facility] Urine sediment unidentified crystal count by microscopy (number/high powered field)Ordered By: Elliott Grigsby on 04-05-2023 Unidentified crystals LM.HPF (Urine sed) [#/Area] 0 SEEN /hpf None Seen [facility] Urine sediment uric acid cry stal count by microscopy (number/high power field)Ordered By: Elliott Grigsby on 04-05-2023 Urate crystals LM.HPF (Urine sed) [#/Area] 0 /[HPF] [facility] Urine specific gravity measu rementOrdered By: Elliott Grigsby on 04-05-2023 Specific gravity (U) [Rel density] 1.025 1.002-1.03 0 [facility] Urobilinogen Auto test strip Ql (U)Ordered By: Elliott Grigsby on 04-05-2023 Urobilinogen Ql (U) 1 mg/dl Normal [facility] Waxy casts detection in urin e sediment by light microscopyOrdered By: Elliott Grigsby on 04-05-2023 Waxy casts LM Ql (Urine sed) 0 SEEN /lpf None Seen [facility] .Auto Diffon 11-14-2022 Basophil, Absolute 0.1 10 3/mcL Normal 0.0-0.3 [facility] ([place]) Comment on above: Performed By: #### A DIFF, ANEU, CBC #### [address] [address] Basophils/100 WBC (Bld) 1.0 % Normal 0.0 - 2.5 % [facility] ([place]) Comment on above: Performed By: #### A DIFF, ANEU, CBC #### [address] [address] Eosinophil, Absolute 0.1 10 3/mcL Normal 0.0-0.7 [facility] ([place]) Comment on above: Performed By: #### A DIFF, ANEU, CBC #### [address] [address] Eosinophils/100 WBC (Bld) 2.0 % Normal 0.0 - 6.0 % [facility] ([place]) Comment on above: Performed By: #### A DIFF, ANEU, CBC #### [address] [address] Lymphocyte, Absolute 1.9 10 3/mcL Normal 0.9-4.3 [facility] ([place]) Comment on above: Performed By: #### A DIFF, ANEU, CBC #### [address] [address] Lymphocytes/100 WBC (Bld) 25.6 % Normal 20.0 - 40.0 % [facility] ([place]) Comment on above: Performed By: #### A DIFF, ANEU, CBC #### [address] [address] Monocyte, Absolute 0.6 10 3/mcL Normal 0.1-1.4 [facility] ([place]) Comment on above: Performed By: #### A DIFF, ANEU, CBC #### [address] [address] Monocytes/100 WBC (Bld) 8.5 % Normal 2.0 - 13.0 % [facility] ([place]) Comment on above: Performed By: #### A DIFF, ANEU, CBC #### [address] [address] Neutrophils/100 WBC (Bld) 62.9 % Normal 50.0 - 75.0 % [facility] ([place]) Comment on above: Performed By: #### A DIFF, ANEU, CBC #### [address] [address] .NEUABSon 11-14-2022 Neutrophil, Absolute 4.7 10 3/mcL Normal 2.3-8.1 [facility] ([place]) Comment on above: Performed By: #### A DIFF, ANEU, CBC #### [address] [address] CBCon 11-14-2022 Erythrocyte distribution width (RBC) [Ratio] 16.2 % Abnormal 11.5 - 15.5 % [facility] ([place]) Comment on above: Performed By: #### A DIFF, ANEU, CBC #### [address] [address] Hematocrit (Bld) [Volume fraction] 34.8 % Normal 34.0 - 46.0 % [facility] ([place]) Comment on above: Performed By: #### A DIFF, ANEU, CBC #### [place] [address] Hgb 11.3 G/dL Low 12.0-16.0 [facility] ([place]) Comment on above: Performed By: #### A DIFF, ANEU, CBC #### [address] [address] MCH (RBC) [Entitic mass] 28.8 pg Normal 27.0 - 33.0 pg [facility] ([place]) Comment on above: Performed By: #### A DIFF, ANEU, CBC #### [place] [address] MCHC 32.5 G/dL Normal 32.0-36.0 [facility] ([place]) Comment on above: Performed By: #### A DIFF, ANEU, CBC #### [place] [address] MCV (RBC) [Entitic vol] 88.6 fL Normal 80.0 - 99.0 fL [facility] ([place]) Comment on above: Performed By: #### A DIFF, ANEU, CBC #### [place] [address] Platelet 362 10 3/mcL Normal 150-450 [facility] ([place]) Comment on above: Performed By: #### A DIFF, ANEU, CBC #### [place] [address] Platelet mean volume (Bld) [Entitic vol] 7.1 fL Normal 6.6 - 10.5 fL [facility] ([place]) Comment on above: Performed By: #### A DIFF, ANEU, CBC #### [place] [address] RBC 3.92 10 6/mcL Low 4.10-5.30 [facility] ([place]) Comment on above: Performed By: #### A DIFF, ANEU, CBC #### [place] [address] WBC 7.5 10 3/mcL Normal 4.5-10.8 [facility] ([place]) Comment on above: Performed By: #### A DIFF, ANEU, CBC #### [place] [address] Laboratory - Hematology and Cell countson 11-13-2022 Basophils (Bld) [#/Vol] 0.1 {10^3/mcL} Normal 0.0 - 0.3 {10^3/mcL} [facility] Work Phone: Eosinophils (Bld) [#/Vol] 0.1 {10^3/mcL} Normal 0.0 - 0.7 {10^3/mcL} [facility]. Work Phone: Hemoglobin (Bld) [Mass/Vol] 11.3 g/dL Abnormal 12.0 - 16.0 g/dL [facility]; [facility] Work Phone: Lymphocytes (Bld) [#/Vol] 1.9 {10^3/mcL} Normal 0.9 - 4.3 {10^3/mcL} [facility]. Work Phone: MCHC (RBC) [Mass/Vol] 32.5 g/dL Normal 32.0 - 36.0 g/dL [facility]; [facility]. Work Phone: Monocytes (Bld) [#/Vol] 0.6 {10^3/mcL} Normal 0.1 - 1.4 {10^3/mcL} [facility]. Work Phone: Neutrophils (Bld) [#/Vol] 4.7 {10^3/mcL} Normal 2.3 - 8.1 {10^3/mcL} [facility] Center[facility]. Work Phone: Platelets (Bld) [#/Vol] 362 {10^3/mcL} Normal 150 - 450 {10^3/mcL} [facility] [email or web address].; MONTICELLO ANDREAFSKI [employer] [facility] [address] [facility] [email or web address]. Work Phone: RBC (Bld) [#/Vol] 3.92 {10^6/mcL} Abnormal 4.10 - 5.30 {10^6/mcL} [facility] CenterSchooo[facility].; [facility] CENTERMobileDevHQ [facility] CampusSchooo[facility]com. Work Phone: WBC (Bld) [#/Vol] 7.5 {10^3/mcL} Normal 4.5 - 10 .8 {10^3/mcL} [facility] [address] [facility] CampusSchooo[facility].com.; [employer] [facility] CampusSch[email or web address]. Work Phone: No Panel Informationon 11-13 Basophil, Absolute 0.1 {10^3/mcL} Normal 0.0 - 0 .3 {10^3/mcL} [facility] [address] [facility] CampusSchooo[facility].com.; [employer] ANDREAFSKI [employer] [facility] [address] [facility] CampusSch[facility]. Work Phone: Eosinophil, Absolute 0.1 {10^3/mcL} Normal 0.0 - 0.7 {10^3/mcL} [facility] [address] [facility] CampusSchooo[facility].com.; [facility] CENTERMobileDevHQ ANDREAFSKI [employer] [facility] CampusSch[facility].com. Work Phone: Lymphocyte, Absolute 1.9 {10^3/mcL} Normal 0.9 - 4.3 {10^3/mcL} [facility] [address] [facility] CampusSchoooools.com.; [employer] ANDREAFSKI [employer] [facility] [address] [facility] [email or web address]. Work Phone: Monocyte, Absolute 0.6 {10^3/mcL} Normal 0.1 - 1 .4 {10^3/mcL} [facility] cfgAdvance [facility] CampusSchoooools.com.; [employer] [facility], [employer]. Work Phone: Neutrophil, Absolute 4.7 {10^3/mcL} Normal 2.3 - 8.1 {10^3/mcL} [employer] [facility] CampusSchoooools.[facility].; [employer] [facility], [employer]. Work Phone: Laboratory - Chemistry and C hemistry - challengeon 06-30-2022 Albumin [Mass/Vol] 1.0 g/dL Normal 0.9 - 1.6 [facility]; [facility] Albumin [Mass/Vol] 3.4 g/dL Normal 3.4 - 5.0 g/dL [facility]; [facility] ALT [Catalytic activity/Vol] 23 U/L Normal 14 - 59 U/L [facility]; [facility] ALT No additional P-5'-P [Catalytic activity/Vol] 23 U/L Normal 14 - 59 U/L [facility]; [facility] Anion gap [Moles/Vol] 10 mmol/L Normal 10 - 2 0 mmol/L [facility]; [facility] AST [Catalytic activity/Vol] 31 U/L Normal 13 - 39 U/L [facility]; [facility] Bilirubin [Mass/Vol] 0.3 mg/dL Normal 0.2 - 1 .0 mg/dL [facility]; [facility] Calcium [Mass/Vol] 9.0 mg/dL Normal 8.5 - 10. 1 mg/dL [facility]; [facility] Chloride [Moles/Vol] 102 mmol/L Normal 98 - 10 7 mmol/L [facility]; [facility] Cholesterol [Mass/Vol] 193 mg/dL Normal 0 - 240 mg/dL [facility]; [facility] Cholesterol in HDL [Mass or moles/Vol] 50 mg/dL Normal 40 - 60 mg/dL [facility]; [facility] Cholesterol in LDL [Mass/Vol] 128 mg/dL Normal 0 - 129 mg/dL [facility]; [facility] Cholesterol.total/Cho lesterol in HDL [Mass ratio] 3.9 {ratio} Normal 0.0 - 5.0 [facility]; [facility] CO2 [Moles/Vol] 32.3 mmol/L Abnormal 21.0 - 32.0 mmol/L [facility]; [facility] Creatinine [Mass/Vol] 0.84 mg/dL Normal 0.55 - 1.02 mg/dL [facility]; [facility] GFR/1.73 sq M.predicted among blacks MDRD (S/P/Bld) [Vol rate/Area] mL/min/{1.73_m2} Normal 60 - 999 {ML/MINUTE } [facility]; [facility] GFR/1.73 sq M.predicted MDRD (S/P/Bld) [Vol rate/Area] mL/min/{1.73_m2} Normal 60 - 999 {ML/MINUTE } [facility], [facility]. Globulin (S) [Mass/Vol] 3.3 g/dL Normal 1.5 - 3.8 g/dL [facility]; [facility], [facility] Glucose [Mass/Vol] 92 mg/dL Normal 74 - 106 mg/dL [facility]; [facility], [facility] Lipid 1996 panel Normal [facility]; [facility] Potassium [Moles/Vol] 3.6 mmol/L Normal 3.5 - 5.1 mmol/L [facility]; [facility], [facility] Protein [Mass/Vol] 6.7 g/dL Normal 6.4 - 8.2 g/dL [facility]; [facility], [facility] Sodium [Moles/Vol] 141 mmol/L Normal 136 - 145 mmol/L [facility]; [facility], [facility] Triglyceride [Mass/Vol] 74 mg/dL Normal 0 - 150 mg/dL [facility]. TSH Qn 2.16 m[IU]/L Normal 0.35 - 3.74 {uIU/ml} [facility]; [facility] Urea nitrogen [Mass/Vol] 14 mg/dL Normal 7 - 18 mg/dL [facility]; [facility] Urea nitrogen/Creatinine [Mass ratio] 17 {ratio} Normal 0 - 30 {ratio} [facility] Laboratory - Hematology and Cell countson 06-30-2022 Basophils (Bld) [#/Vol] 0.00 {x10EE3/UL} Normal 0.00 - 0.10 {x10EE3/UL } [facility] Basophils/100 WBC (Bld) 0.6 % Normal 0.0 - 2.0 % [facility] Eosinophils (Bld) [#/Vol] 0.10 {x10EE3/UL} Normal 0.00 - 0.50 {x10EE3/UL } [facility] Eosinophils/100 WBC (Bld) 2.0 % Normal 0.0 - 7.0 % [facility] Erythrocyte distribution width (RBC) [Ratio] 13.1 % Normal 12.0 - 15.6 % [facility]; [facility], [facility] Hematocrit (Bld) [Volume fraction] 35.3 % Normal 34.0 - 46.0 % [facility], [facility] Hemoglobin (Bld) [Mass/Vol] 11.3 g/dL Abnormal 12.0 - 16.0 g/dL [facility] Lymphocytes (Bld) [#/Vol] 1.50 {x10EE3/UL} Normal 0.80 - 2.80 {x10EE3/UL } [facility], [employer]. Lymphocytes/100 WBC (Bld) 23.7 % Normal 20.0 - 45.0 % [facility] HospitalRepai[facility], [employer].; [facility], [employer] MCH (RBC) [Entitic mass] 28 pg Normal 27 - 33 pg [facility] [facility], [employer] MCHC (RBC) [Mass/Vol] 32 {X10_3} Normal 32 - 3 6 {X10_3} [facility] Hospital[facility], [employer].; [facility] [facility], [employer]. MCV (RBC) [Entitic vol] 88 fL Normal 80 - 99 fL [facility], [employer]. Monocytes (Bld) [#/Vol] 1.00 {x10EE3/UL} Normal 0.20 - 1.00 {x10EE3/UL } [facility] [facility], [employer]. Monocytes/100 WBC (Bld) 15.0 % Abnormal 0.0 - 10.0 % [facility] [employer], [employer]. Morphology Sonny (Bld) [Interp] N/A Normal [facility] CenterRepairogen [facility], [employer]. Neutrophils (Bld) [#/Vol] 3.80 {x10EE3/UL} Normal 1.50 - 7.10 {x10EE3/UL } [facility].; [facility] CenterBiotectix, Inc. Neutrophils/100 WBC (Bld) 58.7 % Normal 46.0 - 76.0 % [facility].; [facility] [employer] Platelet mean volume (Bld) [Entitic vol] 7.6 fL Normal 6.6 - 10.5 fL [facility] [employer].; [facility] CenterBiotectix, [employer]. Platelets (Bld) [#/Vol] 461 {x10EE3/UL} Abnormal 150 - 450 {x10EE3/UL } [facility] HospitalRepairogen [facility] CampusSchoooools.com.; [facility] [employer] CampusSchoooools.com. RBC (Bld) [#/Vol] 4.00 {x_10EE6/UL} Abnormal 4.10 - 5.30 {x_10EE6/U L} [facility] [address] [employer] [facility] CampusSchoooools.com.; [facility] CampusSchoooools.com. WBC (Bld) [#/Vol] 6.5 {x_10EE3/UL} Normal 4.5 - 10.8 {x_10EE3/U L} [facility] [address] [employer] CampusSchoooools.com.; [facility] CampusSchoooools.com. No Panel Informationon 06-30 AGE 82 {years} Normal [facility] [address] [employer] [facility] CampusSchoooools.com.; [facility] CampusSchoooools.com. ALK PHOS 111 U/L Normal 46 - 116 U/L [facility] [address] [employer] [facility] CampusSchoooools.com.; [facility] CampusSchoooools.com. CBC + DIFF Normal [facility] [address] [employer] [facility] [employer]. CMP with eGFR Normal [facility] [address] [employer] [facility] CampusSchoooools.com.; [facility] CampusSchoooools.com. MANUAL DIFF N/A Normal [facility] [address] [employer]; [facility] [employer] [facility] CampusSchoooools.com. Absolute lymphocyte counton 02-15-2022 Lymphocytes Auto (Unsp spec) [#/Vol] 2.15 10*3/uL 0.83-4.51 [facility] Work Phone: Basophil percentageon 2021 Basophils/100 WBC (Bld) 0.4 % 0-1 [facility] Work Phone: Chloride [Moles/Vol] 107 mmol/L 98-107 [facility] Work Phone: Eosinophils/100 WBC (Bld) 2.4 % 0-5 [facility] Work Phone: Glucose [Mass/Vol] 98 mg/dL 74-106 [facility] Work Phone: Neutrophils (Bld) [#/Vol] 3.5 10*3/uL 2.0-7.7 [facility] Work Phone: Neutrophils/100 WBC (Bld) 52.1 % 47-70 [facility] Work Phone: Potassium [Moles/Vol] 4.3 mmol/L 3.5-5.1 [facility] Work Phone: [phone] Sodium [Moles/Vol] 139 mmol/L 136-145 [facility] Work Phone: WBC (Bld) [#/Vol] 6.8 10*3/uL 4.4-11.0 [facility] Work Phone: [phone] Blood erythrocytes count (nu mber/volume)on 02-15-2022 RBC (Bld) [#/Vol] 3.76 10*6/uL 4.2-5.4 [facility] Work Phone: Blood hemoglobin measurement (mass/volume)on 02-15-2022 Hemoglobin (Bld) [Mass/Vol] 11.4 g/dL 12.0-15.0 [facility] Work Phone: Blood lymphocytes/100 leukoc yteson 02-15-2022 Lymphocytes/100 WBC (Bld) 31.7 % 19-41 [facility] Work Phone: Blood monocytes/100 leukocyt eson 02-15-2022 Monocytes/100 WBC (Bld) 13.1 % 0-10 [facility] Work Phone: Blood platelet mean volumeon 02-15-2022 Platelet mean volume (Bld) [Entitic vol] 9.0 fL 6.2-12.0 [facility] Work Phone: Determination of erythrocyte mean corpuscular volume (MCV)on 02-15-2022 MCV (RBC) [Entitic vol] 95.2 fL 81-99 [facility] Work Phone: Hematocrit Auto (Bld) [Volum e fraction]on 02-15-2022 Hematocrit (Bld) [Volume fraction] 35.8 % 37-47 [facility] Work Phone: Laboratory - Chemistry and C hemistry - challengeon 02-15-2022 CO2 [Moles/Vol] 26.0 mmol/L 21.0-32.0 [facility] Work Phone: Urea nitrogen/Creatinine [Mass ratio] 23.6 mg/mg 10-20 [facility] Work Phone: Laboratory - Hematology and Cell countson 02-15-2022 Erythrocyte distribution width (RBC) [Entitic vol] 46.2 fL 35.1-43.9 [facility] Work Phone: Erythrocyte distribution width (RBC) [Ratio] 13.3 % 11.6-14.6 [facility] Work Phone: Immature granulocytes/100 WBC (Bld) 0.300 % 0.0-0.9 [facility] Work Phone: Comment on above: IG% - Immature Granu locytes (promyelocytes, myelocytes and metamyelocytes) > 1% indicates that a LEFT SHIFT is Present. MCH (RBC) [Entitic mass] 30.3 pg 27.0-32.0 [facility] Work Phone: Nucleated RBC/100 WBC (Bld) [Ratio] 0 % 0-5 [facility] Work Phone: MCHC Auto (RBC) [Mass/Vol]on 02-15-2022 MCHC (RBC) [Mass/Vol] 31.8 g/dL 32-36 [facility] Work Phone: No Panel Informationon 02-15 Estimated Creatinine Clearance Calc 35.94 ml/min [facility] Work Phone: Estimated GFR (MDRD) Amer 64 mL/min >60 [facility] Work Phone: Comment on above: GFR Calc Estimated GFR (MDRD) Non-Af Amer 53 mL/min >60 [facility] Work Phone: Comment on above: Non- GFR Calc Platelets bldon 02-15-2022 Platelets (Bld) [#/Vol] 296 10*3/uL 150-450 [facility] Work Phone: Serum or plasma calcium candice urement (mass/volume)on 02-15-2022 Calcium [Mass/Vol] 9.7 mg/dL 8.5-10.1 [facility] Work Phone: Serum or plasma creatinine m easurement (mass/volume)on 02-15-2022 Creatinine [Mass/Vol] 1.06 mg/dL 0.55-1.02 [facility] Work Phone: Comment on above: The validity of the calculated GFR & GFRAA in patients over 70 years has not been determined. Clinical correlation is essential. Serum or plasma urea nitroge n measurement (mass/volume)on 02-15-2022 Urea nitrogen [Mass/Vol] 25 mg/dL 7-18 [facility] Work Phone: Thin prep Papanicolaou smear with manual screeningon 02-15-2022 Thin prep Papanicolaou smear with manual screening 6 5-15 [facility] Work Phone: Serum or plasma folate measu rement (mass/volume)on 02-11-2022 Folate [Mass/Vol] 12.20 ng/mL 3.1-55.4 [facility] Work Phone: Absolute lymphocyte counton 12-28-2021 Lymphocytes Auto (Unsp spec) [#/Vol] 1.79 10*3/uL 0.83-4.51 [facility] Work Phone: Basophil percentageon 2021 Basophils/100 WBC (Bld) 0.7 % 0-1 [facility] Work Phone: Chloride [Moles/Vol] 108 mmol/L 98-107 [facility] Work Phone: Eosinophils/100 WBC (Bld) 2.7 % 0-5 [facility] Work Phone: Glucose [Mass/Vol] 96 mg/dL 74-106 [facility] Work Phone: Neutrophils (Bld) [#/Vol] 1.8 10*3/uL 2.0-7.7 [facility] Work Phone: Neutrophils/100 WBC (Bld) 39.9 % 47-70 [facility] Work Phone: Potassium [Moles/Vol] 3.8 mmol/L 3.5-5.1 [facility] Work Phone: Sodium [Moles/Vol] 142 mmol/L 136-145 [facility] Work Phone: WBC (Bld) [#/Vol] 4.4 10*3/uL 4.4-11.0 [facility] Work Phone: Blood erythrocytes count (nu mber/volume)on 12-28-2021 RBC (Bld) [#/Vol] 3.53 10*6/uL 4.2-5.4 [facility] Work Phone: Blood hemoglobin measurement (mass/volume)on 12-28-2021 Hemoglobin (Bld) [Mass/Vol] 10.8 g/dL 12.0-15.0 [facility] Work Phone: Blood lymphocytes/100 leukoc yteson 12-28-2021 Lymphocytes/100 WBC (Bld) 40.6 % 19-41 [facility] Work Phone: Blood monocytes/100 leukocyt eson 12-28-2021 Monocytes/100 WBC (Bld) 15.6 % 0-10 [facility] Work Phone: Blood platelet mean volumeon 12-28-2021 Platelet mean volume (Bld) [Entitic vol] 8.8 fL 6.2-12.0 [facility] Work Phone: [phone] Determination of erythrocyte mean corpuscular volume (MCV)on 12-28-2021 MCV (RBC) [Entitic vol] 96.3 fL 81-99 [facility] Work Phone: Hematocrit Auto (Bld) [Volum e fraction]on 12-28-2021 Hematocrit (Bld) [Volume fraction] 34.0 % 37-47 [facility] Work Phone: Laboratory - Chemistry and C hemistry - challengeon 12-28-2021 CO2 [Moles/Vol] 29.0 mmol/L 21.0-32.0 [facility] Work Phone: Urea nitrogen/Creatinine [Mass ratio] 29.6 mg/mg 10-20 [facility] Work Phone: Laboratory - Hematology and Cell countson 12-28-2021 Erythrocyte distribution width (RBC) [Entitic vol] 49.6 fL 35.1-43.9 [facility] Work Phone: Erythrocyte distribution width (RBC) [Ratio] 13.9 % 11.6-14.6 [facility] Work Phone: Immature granulocytes/100 WBC (Bld) 0.500 % 0.0-0.9 [facility] Work Phone: Comment on above: IG% - Immature Granu locytes (promyelocytes, myelocytes and metamyelocytes) > 1% indicates that a LEFT SHIFT is Present. MCH (RBC) [Entitic mass] 30.6 pg 27.0-32.0 [facility] Work Phone: Nucleated RBC/100 WBC (Bld) [Ratio] 0 % 0-5 [facility] Work Phone: MCHC Auto (RBC) [Mass/Vol]on 12-28-2021 MCHC (RBC) [Mass/Vol] 31.8 g/dL 32-36 [facility] Work Phone: No Panel Informationon 12-28 Estimated Creatinine Clearance Calc 38.75 ml/min [facility] Work Phone: Estimated GFR (MDRD) Amer 114 mL/min >60 [facility] Work Phone: Comment on above: GFR Calc Estimated GFR (MDRD) Non-Af Amer 95 mL/min >60 [facility] Work Phone: Comment on above: Non- GFR Calc Platelets bldon 12-28-2021 Platelets (Bld) [#/Vol] 345 10*3/uL 150-450 [facility] Work Phone: Serum or plasma calcium candice urement (mass/volume)on 12-28-2021 Calcium [Mass/Vol] 8.8 mg/dL 8.5-10.1 [facility] Work Phone: Serum or plasma creatinine m easurement (mass/volume)on 12-28-2021 Creatinine [Mass/Vol] 0.64 mg/dL 0.55-1.02 [facility] Work Phone: Comment on above: The validity of the calculated GFR & GFRAA in patients over 70 years has not been determined. Clinical correlation is essential. Serum or plasma urea nitroge n measurement (mass/volume)on 12-28-2021 Urea nitrogen [Mass/Vol] 19 mg/dL 7-18 [facility] Work Phone: Thin prep Papanicolaou smear with manual screeningon 12-28-2021 Thin prep Papanicolaou smear with manual screening 5 5-15 [facility] Work Phone: Laboratory - Chemistry and C hemistry - challengeon 12-24-2021 Cobalamin (Vitamin B12) [Mass/Vol] 354 pg/mL 211-911 [facility] Work Phone: Absolute lymphocyte counton 12-21-2021 Lymphocytes Auto (Unsp spec) [#/Vol] 2.08 10*3/uL 0.83-4.51 [facility] Work Phone: Basophil percentageon 2021 Basophils/100 WBC (Bld) 0.8 % 0-1 [facility] Work Phone: Chloride [Moles/Vol] 103 mmol/L 98-107 [facility] Work Phone: Eosinophils/100 WBC (Bld) 2.3 % 0-5 [facility] Work Phone: Glucose [Mass/Vol] 100 mg/dL 74-106 [facility] Work Phone: Comment on above: Fasting Glucose resu lt from 100 to 125 mg/dL suggests IMPAIRED HOMEOSTASIS per A.D.A. criteria. Neutrophils (Bld) [#/Vol] 2.3 10*3/uL 2.0-7.7 [facility] Work Phone: Neutrophils/100 WBC (Bld) 43.7 % 47-70 [facility] Work Phone: Potassium [Moles/Vol] 3.7 mmol/L 3.5-5.1 [facility] Work Phone: Sodium [Moles/Vol] 139 mmol/L 136-145 [facility] Work Phone: WBC (Bld) [#/Vol] 5.2 10*3/uL 4.4-11.0 [facility] Work Phone: Blood erythrocytes count (nu mber/volume)on 12-21-2021 RBC (Bld) [#/Vol] 3.80 10*6/uL 4.2-5.4 [facility] Work Phone: Blood hemoglobin measurement (mass/volume)on 12-21-2021 Hemoglobin (Bld) [Mass/Vol] 11.3 g/dL 12.0-15.0 [facility] Work Phone: Blood lymphocytes/100 leukoc yteson 12-21-2021 Lymphocytes/100 WBC (Bld) 39.8 % 19-41 [facility] Work Phone: Blood monocytes/100 leukocyt eson 12-21-2021 Monocytes/100 WBC (Bld) 12.3 % 0-10 [facility] Work Phone: Blood platelet mean volumeon 12-21-2021 Platelet mean volume (Bld) [Entitic vol] 8.6 fL 6.2-12.0 [facility] Work Phone: Determination of erythrocyte mean corpuscular volume (MCV)on 12-21-2021 MCV (RBC) [Entitic vol] 96.3 fL 81-99 [facility] Work Phone: Hematocrit Auto (Bld) [Volum e fraction]on 12-21-2021 Hematocrit (Bld) [Volume fraction] 36.6 % 37-47 [facility] Work Phone: Laboratory - Chemistry and C hemistry - challengeon 12-21-2021 CO2 [Moles/Vol] 31.0 mmol/L 21.0-32.0 [facility] Work Phone: Urea nitrogen/Creatinine [Mass ratio] 28.6 mg/mg 10-20 [facility] Work Phone: Laboratory - Hematology and Cell countson 12-21-2021 Erythrocyte distribution width (RBC) [Entitic vol] 49.7 fL 35.1-43.9 [facility] Work Phone: Erythrocyte distribution width (RBC) [Ratio] 14.0 % 11.6-14.6 [facility] Work Phone: Immature granulocytes/100 WBC (Bld) 1.100 % 0.0-0.9 [facility] Work Phone: Comment on above: IG% - Immature Granu locytes (promyelocytes, myelocytes and metamyelocytes) > 1% indicates that a LEFT SHIFT is Present. MCH (RBC) [Entitic mass] 29.7 pg 27.0-32.0 [facility] Work Phone: Nucleated RBC/100 WBC (Bld) [Ratio] 0 % 0-5 [facility] Work Phone: MCHC Auto (RBC) [Mass/Vol]on 12-21-2021 MCHC (RBC) [Mass/Vol] 30.9 g/dL 32-36 [facility] Work Phone: No Panel Informationon 12-21 Estimated Creatinine Clearance Calc 38.75 ml/min [facility] Work Phone: Estimated GFR (MDRD) Amer 93 mL/min >60 [facility] Work Phone: Comment on above: GFR Calc Estimated GFR (MDRD) Non-Af Amer 77 mL/min >60 [facility] Work Phone: Comment on above: Non- GFR Calc Platelets bldon 12-21-2021 Platelets (Bld) [#/Vol] 426 10*3/uL 150-450 [facility] Work Phone: Serum or plasma calcium candice urement (mass/volume)on 12-21-2021 Calcium [Mass/Vol] 9.4 mg/dL 8.5-10.1 [facility] Work Phone: Serum or plasma creatinine m easurement (mass/volume)on 12-21-2021 Creatinine [Mass/Vol] 0.77 mg/dL 0.55-1.02 [facility] Work Phone: Comment on above: The validity of the calculated GFR & GFRAA in patients over 70 years has not been determined. Clinical correlation is essential. Serum or plasma urea nitroge n measurement (mass/volume)on 12-21-2021 Urea nitrogen [Mass/Vol] 22 mg/dL 7-18 [facility] Work Phone: Thin prep Papanicolaou smear with manual screeningon 12-21-2021 Thin prep Papanicolaou smear with manual screening 5 5-15 [facility] Work Phone: Basophil percentageon 2021 Basophil percentage 0 SEEN /hpf 0-5 [facility] Work Phone: Basophil percentage 4.7 mg/dL 2.5-4.9 [facility] Work Phone: Bilirubin [Mass/Vol] 0.20 mg/dL 0.20-1.00 [facility] Work Phone: Comment on above: For patients on eltr ombopag therapy, use of [facility] TBIL is not recommended. Protein [Mass/Vol] 6.9 g/dL 6.4-8.2 [facility] Work Phone: Bilirubin Test strip Ql (U)o n 12-20-2021 Bilirubin Ql (U) Negative Negative [facility] Work Phone: Ketones Test strip Ql (U)on 12-20-2021 Ketones Ql (U) Negative Negative [facility] Work Phone: Laboratory - Chemistry and C hemistry - challengeon 12-20-2021 ALP [Catalytic activity/Vol] 76 U/L 45-117 [facility] Work Phone: ALT [Catalytic activity/Vol] 50 U/L 13-56 [facility] Work Phone: [phone] Globulin (S) [Mass/Vol] 3.8 g/dL 2.2-4.2 [facility] Work Phone: Mucus LM Ql (Urine sed)on Mucus Ql (Urine sed) 0 SEEN /hpf [facility] Work Phone: Nitrite Test strip Ql (U)on 12-20-2021 Nitrite Ql (U) Negative Negative [facility] Work Phone: Protein Test strip Ql (U)on 12-20-2021 Protein Ql (U) Negative Negative [facility] Work Phone: Serum or plasma albumin candice urement (mass/volume)on 12-20-2021 Albumin [Mass/Vol] 3.1 g/dL 3.2-5.0 [facility] Work Phone: Serum or plasma albumin/glob ulin mass ratioon 12-20-2021 Albumin/Globulin [Mass ratio] 0.8 {ratio} 0.9-2.4 [facility] Work Phone: Squamous epithelial cells de tection in urine sediment by light microscopyon 12-20-2021 Epithelial cells.squamous LM Ql (Urine sed) 0-5 SEEN /hpf 5-10 [facility] Work Phone: Thin prep Papanicolaou smear with manual screeningon 12-20-2021 Thin prep Papanicolaou smear with manual screening 35 U/L 15-37 [facility] Work Phone: Urine blood detectionon RBC Ql (U) Negative Negative [facility] Work Phone: RBC Ql (U) 0 SEEN /hpf 0-5 [facility] Work Phone: Urine clarityon 12-20-2021 Clarity (U) Clear Clear [facility] Work Phone: Urine color determinationon 12-20-2021 Color (U) Yellow Yellow [facility] Work Phone: Urine glucose detectionon Glucose Ql (U) Normal mg/dl Normal [facility] Work Phone: Urine leukocyte esterase det ection by dipstickon 12-20-2021 Leukocyte esterase Test strip Ql (U) Negative Negative [facility] Work Phone: Urine pHon 12-20-2021 pH (U) 6.0 [pH] 5.0 - 8.0 [facility] Work Phone: Urine sediment bacteria coun t by microscopy (number/high power field)on 12-20-2021 Bacteria LM.HPF (Urine sed) [#/Area] 0 /[HPF] None Seen [facility] Work Phone: Urine specific gravity measu rementon 12-20-2021 Specific gravity (U) [Rel density] 1.015 1.002-1.03 0 [facility] Work Phone: Urobilinogen Auto test strip Ql (U)on 12-20-2021 Urobilinogen Ql (U) Normal mg/dl Normal [facility] Work Phone: Laboratory - Chemistry and C hemistry - challengeon 12-17-2021 Magnesium [Mass/Vol] 2.0 mg/dL 1.6-2.6 [facility] Work Phone: Basophil percentageon 2021 Chloride [Moles/Vol] 109 mmol/L 98-107 [facility] Work Phone: Glucose [Mass/Vol] 103 mg/dL 74-106 [facility] Work Phone: Comment on above: Fasting Glucose resu lt from 100 to 125 mg/dL suggests IMPAIRED HOMEOSTASIS per A.D.A. criteria. Potassium [Moles/Vol] 3.4 mmol/L 3.5-5.1 [facility] Work Phone: Sodium [Moles/Vol] 138 mmol/L 136-145 [facility] Work Phone: Laboratory - Chemistry and C hemistry - challengeon 12-13-2021 CK [Catalytic activity/Vol] 839 U/L 26-192 [facility] Work Phone: CO2 [Moles/Vol] 21.0 mmol/L 21.0-32.0 [facility] Work Phone: Urea nitrogen/Creatinine [Mass ratio] 14.4 mg/mg 10-20 [facility] Work Phone: No Panel Informationon 12-13 Estimated Creatinine Clearance Calc 38.75 ml/min [facility] Work Phone: Estimated GFR (MDRD) Amer 135 mL/min >60 [facility] Work Phone: Comment on above: GFR Calc Estimated GFR (MDRD) Non-Af Amer 111 mL/min >60 [facility] Work Phone: Comment on above: Non- GFR Calc Serum or plasma calcium candice urement (mass/volume)on 12-13-2021 Calcium [Mass/Vol] 7.6 mg/dL 8.5-10.1 [facility] Work Phone: Serum or plasma creatinine m easurement (mass/volume)on 12-13-2021 Creatinine [Mass/Vol] 0.56 mg/dL 0.55-1.02 [facility] Work Phone: Comment on above: The validity of the calculated GFR & GFRAA in patients over 70 years has not been determined. Clinical correlation is essential. Serum or plasma urea nitroge n measurement (mass/volume)on 12-13-2021 Urea nitrogen [Mass/Vol] 8 mg/dL 7-18 [facility] Work Phone: Thin prep Papanicolaou smear with manual screeningon 07-01-2022 Thin prep Papanicolaou smear with manual screening 8 5-15 [facility] Work Phone: Basophil percentageon 2021 Basophil percentage 1.6 mg/dL 2.5-4.9 [facility] Work Phone: Laboratory - Chemistry and C hemistry - challengeon 12-12-2021 Magnesium [Mass/Vol] 2.3 mg/dL 1.6-2.6 [facility] Work Phone: Absolute lymphocyte counton 12-11-2021 Lymphocytes Auto (Unsp spec) [#/Vol] 1.05 10*3/uL 0.83-4.51 [facility] Work Phone: Basophil percentageon 2021 Basophils/100 WBC (Bld) 0.1 % 0-1 [facility] Work Phone: Bilirubin [Mass/Vol] 0.30 mg/dL 0.20-1.00 [facility] Work Phone: Comment on above: For patients on eltr ombopag therapy, use of [facility] TBIL is not recommended. Eosinophils/100 WBC (Bld) 0.0 % 0-5 [facility] Work Phone: [phone] Neutrophils (Bld) [#/Vol] 10.8 10*3/uL 2.0-7.7 [facility] Work Phone: [phone] Neutrophils/100 WBC (Bld) 78.6 % 47-70 [facility] Work Phone: Protein [Mass/Vol] 6.3 g/dL 6.4-8.2 [facility] Work Phone: WBC (Bld) [#/Vol] 13.8 10*3/uL 4.4-11.0 [facility] Work Phone: Blood erythrocytes count (nu mber/volume)on 12-11-2021 RBC (Bld) [#/Vol] 3.71 10*6/uL 4.2-5.4 [facility] Work Phone: Blood hemoglobin measurement (mass/volume)on 12-11-2021 Hemoglobin (Bld) [Mass/Vol] 11.1 g/dL 12.0-15.0 [facility] Work Phone: Blood lymphocytes/100 leukoc yteson 12-11-2021 Lymphocytes/100 WBC (Bld) 7.6 % 19-41 [facility] Work Phone: Blood monocytes/100 leukocyt eson 12-11-2021 Monocytes/100 WBC (Bld) 13.1 % 0-10 [facility] Work Phone: Blood platelet mean volumeon 12-11-2021 Platelet mean volume (Bld) [Entitic vol] 9.4 fL 6.2-12.0 [facility] Work Phone: Determination of erythrocyte mean corpuscular volume (MCV)on 12-11-2021 MCV (RBC) [Entitic vol] 91.9 fL 81-99 [facility] Work Phone: Hematocrit Auto (Bld) [Volum e fraction]on 12-11-2021 Hematocrit (Bld) [Volume fraction] 34.1 % 37-47 [facility] Work Phone: Laboratory - Chemistry and C hemistry - challengeon 12-11-2021 ALP [Catalytic activity/Vol] 80 U/L 45-117 [facility] Work Phone: ALT [Catalytic activity/Vol] 45 U/L 13-56 [facility] Work Phone: Globulin (S) [Mass/Vol] 3.5 g/dL 2.2-4.2 [facility] Work Phone: Laboratory - Hematology and Cell countson 12-11-2021 Erythrocyte distribution width (RBC) [Entitic vol] 47.1 fL 35.1-43.9 [facility] Work Phone: Erythrocyte distribution width (RBC) [Ratio] 13.9 % 11.6-14.6 [facility] Work Phone: Immature granulocytes/100 WBC (Bld) 0.600 % 0.0-0.9 [facility] Work Phone: Comment on above: IG% - Immature Granu locytes (promyelocytes, myelocytes and metamyelocytes) > 1% indicates that a LEFT SHIFT is Present. MCH (RBC) [Entitic mass] 29.9 pg 27.0-32.0 [facility] Work Phone: Nucleated RBC/100 WBC (Bld) [Ratio] 0 % 0-5 [facility] Work Phone: MCHC Auto (RBC) [Mass/Vol]on 12-11-2021 MCHC (RBC) [Mass/Vol] 32.6 g/dL 32-36 [facility] Work Phone: Platelets bldon 12-11-2021 Platelets (Bld) [#/Vol] 276 10*3/uL 150-450 [facility] Work Phone: Review by pathologiston 11-14 Pathologist review Sonny (Unsp spec) [Interp] Reviewed [facility] Work Phone: Comment on above: Previous reported re sult: Pham dean Edited by: MAXI on 12/11/21:1238Neutrophilic leukocytosis.Clinical correlation necessary.Jagdish Helton M.D. 12/11/21 AMENDED REPORT 12/11/21 1238 PATH REV previously reported as: Pham dean Serum or plasma albumin candice urement (mass/volume)on 12-11-2021 Albumin [Mass/Vol] 2.8 g/dL 3.2-5.0 [facility] Work Phone: Serum or plasma albumin/glob ulin mass ratioon 12-11-2021 Albumin/Globulin [Mass ratio] 0.8 {ratio} 0.9-2.4 [facility] Work Phone: Serum procalcitonin measurem enton 12-11-2021 Procalcitonin [Mass/Vol] 4.19 ng/mL 0.00-0.09 [facility] Work Phone: Comment on above: A [...] smear with manual screening 123 U/L 15-37 [facility] Work Phone: Absolute lymphocyte counton 12-10-2021 Lymphocytes Auto (Unsp spec) [#/Vol] 1.00 10*3/uL 0.83-4.51 [facility] Work Phone: Amorphous sediment detection in urine sediment by light microscopyon 12-10-2021 Amorphous sediment LM Ql (Urine sed) 2+ [facility] Work Phone: Basophil percentageon 2021 Basophil percentage 50-100 SEEN /hpf 0-5 [facility] Work Phone: Basophils/100 WBC (Bld) 0.1 % 0-1 [facility] Work Phone: Bilirubin [Mass/Vol] 0.60 mg/dL 0.20-1.00 [facility] Work Phone: Comment on above: For patients on eltr ombopag therapy, use of [facility] TBIL is not recommended. Chloride [Moles/Vol] 103 mmol/L 98-107 [facility] Work Phone: Eosinophils/100 WBC (Bld) 0.0 % 0-5 [facility] Work Phone: Glucose [Mass/Vol] 130 mg/dL 74-106 [facility] Work Phone: Comment on above: Fasting Glucose resu lt greater than or equal to 126 mg/dL suggests DIABETES MELLITUS per A.D.A. criteria. Neutrophils (Bld) [#/Vol] 10.9 10*3/uL 2.0-7.7 [facility] Work Phone: Neutrophils/100 WBC (Bld) 79.5 % 47-70 [facility] Work Phone: Potassium [Moles/Vol] 2.7 mmol/L 3.5-5.1 [facility] Work Phone: Comment on above: Critical Result(s) C alled at: 23:42:52 12/10/2021 by: CRISTAL Roberts [employer]. Results read back by same. Protein [Mass/Vol] 7.2 g/dL 6.4-8.2 [facility] Work Phone: Sodium [Moles/Vol] 137 mmol/L 136-145 [facility] Work Phone: WBC (Bld) [#/Vol] 13.7 10*3/uL 4.4-11.0 [facility] Work Phone: Bilirubin Test strip Ql (U)o n 12-10-2021 Bilirubin Ql (U) Negative Negative [facility] Work Phone: Blood erythrocytes count (nu mber/volume)on 12-10-2021 RBC (Bld) [#/Vol] 4.08 10*6/uL 4.2-5.4 [facility] Work Phone: Blood hemoglobin measurement (mass/volume)on 12-10-2021 Hemoglobin (Bld) [Mass/Vol] 12.3 g/dL 12.0-15.0 [facility] Work Phone: Blood lymphocytes/100 leukoc yteson 12-10-2021 Lymphocytes/100 WBC (Bld) 7.3 % 19-41 [facility] Work Phone: Blood manual differential co mment interpretation (narrative result)on 12-10-2021 Manual differential comment Sonny (Bld) [Interp] SCANNED [facility] Work Phone: Comment on above: MONOCYTOSIS NOTED Blood monocytes/100 leukocyt eson 12-10-2021 Monocytes/100 WBC (Bld) 12.5 % 0-10 [facility] Work Phone: Blood platelet mean volumeon 12-10-2021 Platelet mean volume (Bld) [Entitic vol] 9.2 fL 6.2-12.0 [facility] Work Phone: Determination of erythrocyte mean corpuscular volume (MCV)on 12-10-2021 MCV (RBC) [Entitic vol] 89.5 fL 81-99 [facility] Work Phone: Hematocrit Auto (Bld) [Volum e fraction]on 12-10-2021 Hematocrit (Bld) [Volume fraction] 36.5 % 37-47 [facility] Work Phone: Ketones Test strip Ql (U)on 12-10-2021 Ketones Ql (U) 150 mg/dl Negative [facility] Work Phone: Comment on above: CRITICAL VALUE *HCRI TICAL VALUE VERIFIED. CALLED TO Lida ROBERTS RN ER/ 0013 Cristal Nicholas.RESULTS READ BACK BY SAME. Laboratory - Chemistry and C hemistry - challengeon 12-10-2021 ALP [Catalytic activity/Vol] 95 U/L 45-117 [facility] Work Phone: ALT [Catalytic activity/Vol] 48 U/L 13-56 [facility] Work Phone: CK [Catalytic activity/Vol] 5736 U/L 26-192 [facility] Work Phone: CO2 [Moles/Vol] 20.0 mmol/L 21.0-32.0 [facility] Work Phone: Globulin (S) [Mass/Vol] 4.0 g/dL 2.2-4.2 [facility] Work Phone: Magnesium [Mass/Vol] 2.2 mg/dL 1.6-2.6 [facility] Work Phone: Urea nitrogen/Creatinine [Mass ratio] 30.9 mg/mg 10-20 [facility] Work Phone: Laboratory - Hematology and Cell countson 12-10-2021 Erythrocyte distribution width (RBC) [Entitic vol] 45.7 fL 35.1-43.9 [facility] Work Phone: Erythrocyte distribution width (RBC) [Ratio] 13.9 % 11.6-14.6 [facility] Work Phone: Immature granulocytes/100 WBC (Bld) 0.600 % 0.0-0.9 [facility] Work Phone: Comment on above: IG% - Immature Granu locytes (promyelocytes, myelocytes and metamyelocytes) > 1% indicates that a LEFT SHIFT is Present. MCH (RBC) [Entitic mass] 30.1 pg 27.0-32.0 [facility] Work Phone: Nucleated RBC/100 WBC (Bld) [Ratio] 0 % 0-5 [facility] Work Phone: MCHC Auto (RBC) [Mass/Vol]on 12-10-2021 MCHC (RBC) [Mass/Vol] 33.7 g/dL 32-36 [facility] Work Phone: Mucus LM Ql (Urine sed)on Mucus Ql (Urine sed) 0 SEEN /hpf [facility] Work Phone: Nitrite Test strip Ql (U)on 12-10-2021 Nitrite Ql (U) Negative Negative [facility] Work Phone: No Panel Informationon 12-10 Estimated Creatinine Clearance Calc 48.07 ml/min [facility] Work Phone: Estimated GFR (MDRD) Amer 84 mL/min >60 [facility] Work Phone: Comment on above: GFR Calc Estimated GFR (MDRD) Non-Af Amer 69 mL/min >60 [facility] Work Phone: Comment on above: Non- GFR Calc Platelets bldon 12-10-2021 Platelets (Bld) [#/Vol] 283 10*3/uL 150-450 [facility] Work Phone: Protein Test strip Ql (U)on 12-10-2021 Protein Ql (U) 100 mg/dl Negative [facility] Work Phone: Review by pathologiston 11-14 Pathologist review Sonny (Unsp spec) [Interp] October foll [facility] Work Phone: Serum or plasma albumin candice urement (mass/volume)on 12-10-2021 Albumin [Mass/Vol] 3.2 g/dL 3.2-5.0 [facility] Work Phone: Serum or plasma albumin/glob ulin mass ratioon 12-10-2021 Albumin/Globulin [Mass ratio] 0.8 {ratio} 0.9-2.4 [facility] Work Phone: Serum or plasma calcium candice urement (mass/volume)on 12-10-2021 Calcium [Mass/Vol] 8.7 mg/dL 8.5-10.1 [facility] Work Phone: Serum or plasma creatinine m easurement (mass/volume)on 12-10-2021 Creatinine [Mass/Vol] 0.84 mg/dL 0.55-1.02 [facility] Work Phone: Comment on above: The validity of the calculated GFR & GFRAA in patients over 70 years has not been determined. Clinical correlation is essential. Serum or plasma urea nitroge n measurement (mass/volume)on 12-10-2021 Urea nitrogen [Mass/Vol] 26 mg/dL 7-18 [facility] Work Phone: Squamous epithelial cells de tection in urine sediment by light microscopyon 12-10-2021 Epithelial cells.squamous LM Ql (Urine sed) 0 SEEN /hpf 5-10 [facility] Work Phone: Thin prep Papanicolaou smear with manual screeningon 12-10-2021 Thin prep Papanicolaou smear with manual screening 133 U/L 15-37 [facility] Work Phone: Thin prep Papanicolaou smear with manual screening 14 5-15 [facility] Work Phone: Urine blood detectionon - RBC Ql (U) 250 /ul Negative [facility] Work Phone: RBC Ql (U) 0-5 SEEN /hpf 0-5 [facility] Work Phone: Urine clarityon 12-10-2021 Clarity (U) Sl. Cloudy Clear [facility] Work Phone: Urine color determinationon 12-10-2021 Color (U) Yellow Yellow [facility] Work Phone: Urine glucose detectionon Glucose Ql (U) Normal mg/dl Normal [facility] Work Phone: Urine leukocyte esterase det ection by dipstickon 12-10-2021 Leukocyte esterase Test strip Ql (U) 100 /ul Negative [facility] Work Phone: Urine pHon 12-10-2021 pH (U) 6.0 [pH] 5.0 - 8.0 [facility] Work Phone: Urine sediment bacteria coun t by microscopy (number/high power field)on 12-10-2021 Bacteria LM.HPF (Urine sed) [#/Area] 4 /[HPF] None Seen [facility] Work Phone: Urine specific gravity measu rementon 12-10-2021 Specific gravity (U) [Rel density] 1.020 1.002-1.03 0 [facility] Work Phone: Urobilinogen Auto test strip Ql (U)on 12-10-2021 Urobilinogen Ql (U) 1 mg/dl Normal [facility] Work Phone: CT Up Ext w/o Contrast Lefto n 07-03-2020 CT Up Ext w/o Contrast Left Patient Name: SAPNA BULLARD Computed Tomography ACCESSION EXAM DATE/TIME PROCEDURE ORDERING PROVIDER [id number] 07/03/2020 13:[address] Up Ext w/o Contrast 59Aura -DAX SHANKS Left CPT code 61909 Reason For Exam (CT Up Ext w/o [...] Transcribed Date and Time: 07/04/2020 11:26 Normal [facility] Culture, urine Bacteria identified Cx Nom (U) Presumptive E. coli [facility] Work Phone: Bacteria identified Cx Nom (U) Positive [facility] Work Phone: Laboratory - Microbiology an d Antimicrobial susceptibility Bacteria identified Cx Nom (Bld) No growth in 5 days. [facility] Work Phone: Vital Signs Date Time Vital Sign Value Performing Clinician Facility 02-19-2025 08:52-0400 Body temperature 97.6 [degF] Dr. Genevieve Wu MD Work Phone: [facility] 02-19-2025 08:52-0400 Diastolic blood pressure 54 mm[Hg] Dr. Genevieve Wu MD Work Phone: [facility] 02-19-2025 08:52-0400 Heart rate 85 /min Dr. Genevieve Wu MD Work Phone: [facility] 02-19-2025 08:52-0400 Respiratory rate 18 /min Dr. Genevieve Wu MD Work Phone: [phone] [place] [address] 02-19-2025 08:52-0400 SaO2% (BldA) [Mass fraction] 98 % Dr. Genevieve Wu MD Work Phone: [facility] 02-19-2025 08:52-0400 Systolic blood pressure 113 mm[Hg] Dr. Genevieve Wu MD Work Phone: 5([phone] [place] [address] 02-14-2025 16:26-0400 Body height 165.[address] Genevieve Wu MD Work Phone: 3([phone])[phone] [place] [address] 02-14-2025 16:26-0400 Body weight 55.[address] Genevieve Wu MD Work Phone: [facility] 02-14-2025 15:37-0400 Body mass index (BMI) [Ratio] 20.2 kg/m2 Dr. Genevieve Wu MD Work Phone: 5([phone] [place] [address] 02-14-2025 15:00-0400 Body temperature 98.9 [degF] Dr. Genevieve Wu MD Work Phone: [phone] [place] [address] 02-14-2025 15:00-0400 Diastolic blood pressure 78 mm[Hg] Dr. Genevieve Wu MD Work Phone: [facility] 02-14-2025 15:00-0400 Heart rate 89 /min Dr. Genevieve Wu MD Work Phone: [facility] 02-14-2025 15:00-0400 Respiratory rate 16 /min Dr. Genevieve Wu MD Work Phone: [facility] 02-14-2025 15:00-0400 SaO2% (BldA) [Mass fraction] 98 % Dr. Genevieve Wu MD Work Phone: [facility] 02-14-2025 15:00-0400 Systolic blood pressure 118 mm[Hg] Dr. Genevieve Wu MD Work Phone: [facility] 02-14-2025 09:36-0400 Body height 165.[address] Genevieve Wu MD Work Phone: [facility] 02-14-2025 09:36-0400 Body mass index (BMI) [Ratio] 21.3 kg/m2 Dr. Genevieve Wu MD Work Phone: [facility] 02-14-2025 09:36-0400 Body weight 58.[address] Genevieve Wu MD Work Phone: [facility] 12-07-2024 05:45-0400 Body mass index (BMI) [Ratio] 19.8 kg/m2 Dr. Genevieve Wu MD Work Phone: [facility] 12-07-2024 05:45-0400 Body temperature 96.4 [degF] Dr. Genevieve Wu MD Work Phone: [facility] 12-07-2024 05:45-0400 Body weight 53.[address] Genevieve Wu MD Work Phone: [facility] 12-07-2024 05:45-0400 Diastolic blood pressure 58 mm[Hg] Dr. Genevieve Wu MD Work Phone: [facility] 12-07-2024 05:45-0400 Heart rate 49 /min Dr. Genevieve Wu MD Work Phone: [facility] 12-07-2024 05:45-0400 Respiratory rate 16 /min Dr. Genevieve Wu MD Work Phone: [facility] 12-07-2024 05:45-0400 SaO2% (BldA) [Mass fraction] 95 % Dr. Genevieve Wu MD Work Phone: [facility] 12-07-2024 05:45-0400 Systolic blood pressure 93 mm[Hg] Dr. Genevieve Wu MD Work Phone: [facility] 11-29-2024 10:09-0400 Body height 165.[address] Genevieve Wu MD Work Phone: [facility] 11-29-2024 10:09-0400 Body mass index (BMI) [Ratio] 19.6 kg/m2 Dr. Genevieve Wu MD Work Phone: [facility] 11-29-2024 10:09-0400 Body temperature 94.6 [degF] Dr. Genevivee Wu MD Work Phone: [facility] 11-29-2024 10:09-0400 Body weight 53.[address] Genevieve Wu MD Work Phone: [facility] 11-29-2024 10:09-0400 Diastolic blood pressure 64 mm[Hg] Dr. Genevieve Wu MD Work Phone: [facility] 11-29-2024 10:09-0400 Heart rate 55 /min Dr. Genevieve Wu MD Work Phone: [facility] 11-29-2024 10:09-0400 Respiratory rate 16 /min Dr. Genevieve Wu MD Work Phone: [facility] 11-29-2024 10:09-0400 SaO2% (BldA) [Mass fraction] 92 % Dr. Genevieve Wu MD Work Phone: [facility] 11-29-2024 10:09-0400 Systolic blood pressure 125 mm[Hg] Dr. Genevieve Wu MD Work Phone: [facility] 10-05-2024 08:22-0400 Body mass index (BMI) [Ratio] 19.6 kg/m2 Dr. Nicci Lemus MD Work Phone: [facility] 10-05-2024 08:22-0400 Body weight 53.[address] Nicci Lemus MD Work Phone: [facility] 10-05-2024 08:22-0400 Diastolic blood pressure 65 mm[Hg] Dr. Nicci Lemus MD Work Phone: [facility] 10-05-2024 08:22-0400 Heart rate 75 /min Dr. Nicci Lemus MD Work Phone: [facility] 10-05-2024 08:22-0400 Respiratory rate 18 /min Dr. Nicci Lemus MD Work Phone: [facility] 10-05-2024 08:22-0400 Systolic blood pressure 111 mm[Hg] Dr. Nicci Lemus MD Work Phone: [facility] 09-08-2024 08:39-0400 Body mass index (BMI) [Ratio] 19.4 kg/m2 Dr. Nicci Lemus MD Work Phone: [facility] 09-08-2024 08:39-0400 Body temperature 97.5 [degF] Dr. Nicci Lemus MD Work Phone: [facility] 09-08-2024 08:39-0400 Body weight 53.[address] Nicci Lemus MD Work Phone: [facility] 09-08-2024 08:39-0400 Diastolic blood pressure 77 mm[Hg] Dr. Nicci Lemus MD Work Phone: [facility] 09-08-2024 08:39-0400 Heart rate 72 /min Dr. Nicci Lemus MD Work Phone: [facility] 09-08-2024 08:39-0400 Respiratory rate 18 /min Dr. Nicci Lemus MD Work Phone: [facility] 09-08-2024 08:39-0400 SaO2% (BldA) [Mass fraction] 99 % Dr. Nicci Lemus MD Work Phone: [facility] 09-08-2024 08:39-0400 Systolic blood pressure 121 mm[Hg] Dr. Nicci Lemus MD Work Phone: [facility] 07-19-2024 09:58-0500 Body height 165.[address] Nicci Lemus MD Work Phone: [facility] 07-19-2024 09:58-0500 Body mass index (BMI) [Ratio] 18.3 kg/m2 Dr. Nicci Lemus MD Work Phone: [facility] 07-19-2024 09:58-0500 Body temperature 98.6 [degF] Dr. Nicci Lemus MD Work Phone: [facility] 07-19-2024 09:58-0500 Body weight 49.[address] Nicci Lemus MD Work Phone: [facility] 07-19-2024 09:58-0500 Diastolic blood pressure 74 mm[Hg] Dr. Nicci Lemus MD Work Phone: [facility] 07-19-2024 09:58-0500 Heart rate 89 /min Dr. Nicci Lemus MD Work Phone: [facility] 07-19-2024 09:58-0500 Respiratory rate 15 /min Dr. Nicci Lemus MD Work Phone: [facility] 07-19-2024 09:58-0500 SaO2% (BldA) [Mass fraction] 96 % Dr. Nicci Lemus MD Work Phone: [facility] 07-19-2024 09:58-0500 Systolic blood pressure 108 mm[Hg] Dr. Nicci Lemus MD Work Phone: [facility] 07-21-2023 08:45-0500 Body temperature 98 [degF] Dr. Nicholas Cohen Work Phone: [facility] 07-21-2023 08:45-0500 Body weight 48.[address] Nicholas Cohen Work Phone: [facility] 07-21-2023 08:45-0500 Diastolic blood pressure 82 mm[Hg] Dr. Nicholas Cohen Work Phone: [facility] 07-21-2023 08:45-0500 Heart rate 70 /min Dr. Nicholas Cohen Work Phone: [facility] 07-21-2023 08:45-0500 Respiratory rate 15 /min Dr. Nicholas Cohen Work Phone: [facility] 07-21-2023 08:45-0500 SaO2% (BldA) [Mass fraction] 98 % Dr. Nicholas Cohen Work Phone: [facility] 07-21-2023 08:45-0500 Systolic blood pressure 120 mm[Hg] Dr. Nicholas Cohen Work Phone: [facility] 05-14-2023 15:37-0500 Body height 156.21 cm Jaida Sanchez RN [facility] [place]. 05-14-2023 15:37-0500 Body mass index (BMI) [Ratio] 19.61 kg/m2 Jaida Sanchez RN [facility], [facility].; [facility] 05-14-2023 15:37-0500 Body surface area Derived from formula 1.45 m2 Jaida Sanchez RN [facility] [email or web address].; [facility]. 05-14-2023 15:37-0500 Body weight 47.85 kg Jaida Sanchez RN [facility].; [facility]. 05-14-2023 15:37-0500 Diastolic blood pressure 68 mm[Hg] Jaida Sanchez RN [facility].; [facility]. Comment on above: Patient Position: Sitting; Cuff Location : Left Arm; Cuff Size: Standard 05-14-2023 15:37-0500 Heart rate 53 /min Jaida Sanchez RN [facility].; [facility]. Comment on above: Pattern: Regular 05-14-2023 15:37-0500 Systolic blood pressure 117 mm[Hg] Jaida Sanchez RN [facility].; [facility]. Comment on above: Patient Position: Sitting; Cuff Location : Left Arm; Cuff Size: Standard 04-23-2023 11:48-0500 Body temperature 97.3 [degF] Dr. Lalo Palm Work Phone: [facility] 04-23-2023 11:48-0500 Diastolic blood pressure 68 mm[Hg] Dr. Lalo Palm Work Phone: [facility] 04-23-2023 11:48-0500 Heart rate 69 /min Dr. Lalo Palm Work Phone: [facility] 04-23-2023 11:48-0500 Respiratory rate 16 /min Dr. Lalo Palm Work Phone: [facility] 04-23-2023 11:48-0500 SaO2% (BldA) [Mass fraction] 97 % Dr. Lalo Palm Work Phone: [facility] 04-23-2023 11:48-0500 Systolic blood pressure 124 mm[Hg] Dr. Lalo Palm Work Phone: [facility] 04-23-2023 05:13-0500 Body mass index (BMI) [Ratio] 18.1 kg/m2 Dr. Lalo Palm Work Phone: [facility] 04-23-2023 05:13-0500 Body weight 49.[address] Lalo Palm Work Phone: [facility] 04-20-2023 14:09-0500 Body height [address] Lalo Palm Work Phone: [facility] 04-05-2023 11:42-0400 Body mass index (BMI) [Ratio] 17.8 kg/m2 Dr. Lalo Palm Work Phone: [facility] 04-05-2023 11:42-0400 Body temperature 97.8 [degF] Dr. Lalo Palm Work Phone: [facility] 04-05-2023 11:42-0400 Body weight 47.[address] Lalo Palm Work Phone: [facility] 04-05-2023 11:42-0400 Diastolic blood pressure 64 mm[Hg] Dr. Lalo Palm Work Phone: [facility] 04-05-2023 11:42-0400 Heart rate 50 /min Dr. Lalo Palm Work Phone: [facility] 04-05-2023 11:42-0400 Respiratory rate 14 /min Dr. Lalo Palm Work Phone: [facility] 04-05-2023 11:42-0400 SaO2% (BldA) [Mass fraction] 91 % Dr. Lalo Palm Work Phone: [facility] 04-05-2023 11:42-0400 Systolic blood pressure 106 mm[Hg] Dr. Lalo Palm Work Phone: [facility] 03-17-2023 08:45-0400 Body mass index (BMI) [Ratio] 18.3 kg/m2 Dr. Lalo Palm Work Phone: [facility] 03-17-2023 08:45-0400 Body temperature 98.8 [degF] Dr. Lalo Palm Work Phone: [facility] 03-17-2023 08:45-0400 Body weight 48.[address] Lalo Palm Work Phone: [facility] 03-17-2023 08:45-0400 Diastolic blood pressure 70 mm[Hg] Dr. Lalo Palm Work Phone: [facility] 03-17-2023 08:45-0400 Heart rate 71 /min Dr. Lalo Palm Work Phone: [facility] 03-17-2023 08:45-0400 Respiratory rate 16 /min Dr. Lalo Palm Work Phone: [facility] 03-17-2023 08:45-0400 SaO2% (BldA) [Mass fraction] 95 % Dr. Lalo Palm Work Phone: [facility] 03-17-2023 08:45-0400 Systolic blood pressure 128 mm[Hg] Dr. Lalo Palm Work Phone: [facility] 11-13-2022 10:17-0400 Body height 156.21 cm Sisi Thurman RN [facility], [facility].; [facility], [facility]. 11-13-2022 10:17-0400 Body mass index (BMI) [Ratio] 21.19 kg/m2 Sisi Thurman RN [facility]. 11-13-2022 10:17-0400 Body surface area Derived from formula 1.5 m2 Sisi Thurman RN [facility], [facility].; [facility], [facility]. 11-13-2022 10:17-0400 Body weight 51.71 kg Sisi Thurman RN [facility], [facility].; [facility], [facility]. 11-13-2022 10:17-0400 Diastolic blood pressure 78 mm[Hg] Sisi Thurman RN [facility], [facility].; [email or web address]. Comment on above: Patient Position: Sitting; Cuff Location : Left Arm; Cuff Size: Standard 11-13-2022 10:17-0400 Heart rate 57 /min Sisi Thurman RN [facility] CenterConstant Contact [facility].; [facility] Contact [facility]. Comment on above: Pattern: Regular 11-13-2022 10:17-0400 Systolic blood pressure 127 mm[Hg] Sisi Thurman RN [facility].; [facility]. Comment on above: Patient Position: Sitting; Cuff Location : Left Arm; Cuff Size: Standard 06-30-2022 09:15-0500 Body height 156.21 cm DUNCAN SAUEREngine EcologyELIZABETH HEALTH INFORMATICS SPECIALIST-C Work Phone: [facility] [email or web address].; [facility] Contact [facility]. 06-30-2022 09:15-0500 Body mass index (BMI) [Ratio] 20.82 kg/m2 DUNCAN Offermatic HEALTH INFORMATICS SPECIALIST-C Work Phone: [facility] [email or web address].; [email or web address]. 06-30-2022 09:15-0500 Body surface area Derived from formula 1.49 m2 Ekos GlobalER HEALTH INFORMATICS SPECIALIST-C Work Phone: [facility] [email or web address].; [email or web address]. 06-30-2022 09:15-0500 Body weight 50.8 kg DUNCAN SAUERStrategy StoreER HEALTH INFORMATICS SPECIALIST-C Work Phone: [facility] [email or web address].; [email or web address]. 06-30-2022 09:15-0500 Diastolic blood pressure 68 mm[Hg] DUNCAN SAUERStrategy StoreER HEALTH INFORMATICS SPECIALIST-C Work Phone: [facility] [email or web address].; [email or web address]. Comment on above: Patient Position: Sitting; Cuff Location : Left Arm; Cuff Size: Standard 06-30-2022 09:15-0500 Heart rate 59 /min DUNCAN EnlightedER HEALTH INFORMATICS SPECIALIST-C Work Phone: [facility] [address] [facility] CampusLedzworld; [facility] [email or web address]. Comment on above: Pattern: Regular 06-30-2022 09:15-0500 Inhaled oxygen concentration 21 % DUNCAN ZAVALA HEALTH INFORMATICS SPECIALIST-C Work Phone: [facility] [address] [facility]; [facility] [email or web address]. Comment on above: Room air 06-30-2022 09:15-0500 SaO2% (BldA) [Mass fraction] 92 % DUNCAN ZAVALA HEALTH INFORMATICS SPECIALIST-C Work Phone: [facility] [address] [facility] CampusL[facility]; [facility] [email or web address]. 06-30-2022 09:15-0500 Systolic blood pressure 114 mm[Hg] DUNCAN ZAVALA HEALTH INFORMATICS SPECIALIST-C Work Phone: [facility] [address] [facility] CampusL[facility]; [facility] [email or web address]. Comment on above: Patient Position: Sitting; Cuff Location : Left Arm; Cuff Size: Standard 04-07-2022 11:05-0400 Body height 156.21 cm [facility] [email or web address].; [facility] CENTERMobileDevHQ [facility] [email or web address]. 04-07-2022 11:05-0400 Body mass index (BMI) [Ratio] 23.42 kg/m2 [facility] CampusConstant Contact [facility].; [facility] [email or web address]. 04-07-2022 11:05-0400 Body surface area Derived from formula 1.56 m2 [facility] CampusConstant Contact [facility].; [employer] [facility] [email or web address]. 04-07-2022 11:05-0400 Body weight 57.15 kg [facility] [email or web address].; [facility] [email or web address]. 04-07-2022 11:05-0400 Diastolic blood pressure 70 mm[Hg] [facility] [email or web address].; [facility] [email or web address]. Comment on above: Patient Position: Sitting; Cuff Location : Left Arm; Cuff Size: Standard 04-07-2022 11:05-0400 Heart rate 51 /min [facility]. Comment on above: Pattern: Regular 04-07-2022 11:05-0400 Inhaled oxygen concentration 21 % [facility]. Comment on above: Room air 04-07-2022 11:05-0400 SaO2% (BldA) [Mass fraction] 98 % [facility].; [facility]. 04-07-2022 11:05-0400 Systolic blood pressure 159 mm[Hg] [facility] hospitalConstant Contact [facility].; [facility]. Comment on above: Patient Position: Sitting; Cuff Location : Left Arm; Cuff Size: Standard 02-15-2022 15:09-0400 Diastolic blood pressure 68 mm[Hg] Dr. Lalo Palm Work Phone: [facility] Work Phone: 02-15-2022 15:09-0400 Systolic blood pressure 124 mm[Hg] Dr. Lalo Palm Work Phone: [facility] Work Phone: 02-15-2022 14:11-0400 Heart rate 59 /min Dr. Lalo Palm Work Phone: [facility] Work Phone: 02-15-2022 14:11-0400 Respiratory rate 14 /min Dr. Lalo Palm Work Phone: [facility] Work Phone: 02-15-2022 14:11-0400 SaO2% (BldA) [Mass fraction] 96 % Dr. Lalo Palm Work Phone: [facility] Work Phone: 02-15-2022 12:17-0400 Body height 162.[address] Lalo Palm Work Phone: [facility] Work Phone: 02-15-2022 12:17-0400 Body mass index (BMI) [Ratio] 21.9 kg/m2 Dr. Lalo Palm Work Phone: [facility] Work Phone: 02-15-2022 12:17-0400 Body temperature 96.9 [degF] Dr. Lalo Palm Work Phone: [facility] Work Phone: 02-15-2022 12:17-0400 Body weight 58.[address] Lalo Palm Work Phone: [facility] Work Phone: 02-11-2022 10:59-0400 Body mass index (BMI) [Ratio] 23.1 kg/m2 Dr. Lalo Palm Work Phone: [facility] Work Phone: 02-11-2022 10:59-0400 Body temperature 98.2 [degF] Dr. Lalo Palm Work Phone: [facility] Work Phone: 02-11-2022 10:59-0400 Body weight 59.[address] Lalo Palm Work Phone: [facility] Work Phone: 02-11-2022 10:59-0400 Diastolic blood pressure 80 mm[Hg] Dr. Lalo Palm Work Phone: [facility] Work Phone: 02-11-2022 10:59-0400 Heart rate 57 /min Dr. Lalo Palm Work Phone: [facility] Work Phone: 02-11-2022 10:59-0400 Respiratory rate 16 /min Dr. Lalo Palm Work Phone: [facility] Work Phone: 02-11-2022 10:59-0400 SaO2% (BldA) [Mass fraction] 97 % Dr. Lalo Palm Work Phone: [facility] Work Phone: 02-11-2022 10:59-0400 Systolic blood pressure 130 mm[Hg] Dr. Lalo Palm Work Phone: [facility] Work Phone: 12-28-2021 10:24-0400 Body temperature 98 [degF] Dr. Lalo Palm Work Phone: [facility] Work Phone: 12-28-2021 10:24-0400 Diastolic blood pressure 60 mm[Hg] Dr. Lalo Palm Work Phone: [facility] Work Phone: 12-28-2021 10:24-0400 Heart rate 67 /min Dr. Lalo Palm Work Phone: [facility] Work Phone: 12-28-2021 10:24-0400 Respiratory rate 16 /min Dr. Lalo Palm Work Phone: [facility] Work Phone: 12-28-2021 10:24-0400 SaO2% (BldA) [Mass fraction] 95 % Dr. Lalo Palm Work Phone: [facility] Work Phone: 12-28-2021 10:24-0400 Systolic blood pressure 114 mm[Hg] Dr. Lalo Palm Work Phone: [facility] Work Phone: 12-26-2021 20:32-0400 Diastolic blood pressure 69 mm[Hg] Dr. Lalo Palm Work Phone: [facility] Work Phone: 12-26-2021 20:32-0400 Heart rate 79 /min Dr. Lalo Palm Work Phone: [facility] Work Phone: 12-26-2021 20:32-0400 Systolic blood pressure 126 mm[Hg] Dr. Lalo Palm Work Phone: [facility] Work Phone: 12-26-2021 15:59-0400 Body temperature 97.4 [degF] Dr. Lalo Palm Work Phone: [facility] Work Phone: 12-26-2021 15:59-0400 Respiratory rate 18 /min Dr. Lalo Palm Work Phone: [facility] Work Phone: 12-26-2021 15:59-0400 SaO2% (BldA) [Mass fraction] 98 % Dr. Lalo Palm Work Phone: [facility] Work Phone: 12-25-2021 16:45-0400 Body height [address] Lalo Plam Work Phone: [facility] Work Phone: 12-25-2021 16:45-0400 Body weight 58.[address] Lalo Palm Work Phone: [facility] Work Phone: 12-13-2021 16:09-0400 Body mass index (BMI) [Ratio] 23.3 kg/m2 Dr. Lalo Palm Work Phone: [facility] Work Phone: 12-13-2021 15:17-0400 Body temperature 97.9 [degF] Dr. Lalo Palm Work Phone: [facility] Work Phone: 12-13-2021 15:17-0400 Diastolic blood pressure 74 mm[Hg] Dr. Lalo Palm Work Phone: [facility] Work Phone: 12-13-2021 15:17-0400 Heart rate 68 /min Dr. Lalo Palm Work Phone: [facility] Work Phone: 12-13-2021 15:17-0400 Respiratory rate 18 /min Dr. Lalo Palm Work Phone: [facility] Work Phone: 12-13-2021 15:17-0400 SaO2% (BldA) [Mass fraction] 98 % Dr. Lalo Palm Work Phone: [facility] Work Phone: 12-13-2021 15:17-0400 Systolic blood pressure 142 mm[Hg] Dr. Lalo Palm Work Phone: [facility] Work Phone: 12-13-2021 06:00-0400 Body weight 63.[address] Lalo Palm Work Phone: [facility] Work Phone: 12-11-2021 14:03-0400 Body height [address] Lalo Palm Work Phone: [facility] Work Phone: 12-11-2021 01:45-0400 Body mass index (BMI) [Ratio] 16.7 kg/m2 Dr. Lalo Palm Work Phone: [facility] Work Phone: 12-11-2021 01:03-0400 Body temperature 98.6 [degF] Dr. Lalo Palm Work Phone: [facility] Work Phone: 12-11-2021 01:03-0400 Diastolic blood pressure 69 mm[Hg] Dr. Lalo Palm Work Phone: [facility] Work Phone: 12-11-2021 01:03-0400 Heart rate 86 /min Dr. Lalo Palm Work Phone: [facility] Work Phone: 12-11-2021 01:03-0400 Respiratory rate 15 /min Dr. Lalo Palm Work Phone: [facility] Work Phone: 12-11-2021 01:03-0400 SaO2% (BldA) [Mass fraction] 94 % Dr. Lalo Palm Work Phone: [facility] Work Phone: 12-11-2021 01:03-0400 Systolic blood pressure 120 mm[Hg] Dr. Lalo Palm Work Phone: [facility] Work Phone: 12-10-2021 22:22-0400 Inhaled oxygen flow rate 3 L/min Dr. Lalo Palm Work Phone: [facility] Work Phone: 12-10-2021 20:16-0400 Body height 165.[address] Lalo Palm Work Phone: [facility] Work Phone: 12-10-2021 20:16-0400 Body mass index (BMI) [Ratio] 22.3 kg/m2 Dr. Lalo Palm Work Phone: [facility] Work Phone: 12-10-2021 20:16-0400 Body weight 60.[address] Lalo Palm Work Phone: [facility] Work Phone: 09-26-2021 15:46-0400 Body temperature 97.8 [degF] Dr. Lalo Palm Work Phone: [facility] Work Phone: 09-26-2021 15:46-0400 Diastolic blood pressure 80 mm[Hg] Dr. Lalo Palm Work Phone: [facility] Work Phone: 09-26-2021 15:46-0400 Heart rate 91 /min Dr. Lalo Palm Work Phone: [facility] Work Phone: 09-26-2021 15:46-0400 Respiratory rate 16 /min Dr. Lalo Palm Work Phone: [facility] Work Phone: 09-26-2021 15:46-0400 SaO2% (BldA) [Mass fraction] 96 % Dr. Lalo Palm Work Phone: [facility] Work Phone: 09-26-2021 15:46-0400 Systolic blood pressure 128 mm[Hg] Dr. Lalo Palm Work Phone: [facility] Work Phone: Encounters Encounter Date Encounter Type Care Provider Facility Start: 02-27-2025 ambulatory Gerardobosworthbe Jazmin OLS Fa cility:[facility] Start: 02-21-2025 ambulatory Efhaseeb Wu OLS Fa cility:[facility] Start: 02-18-2025 Dr. Felicia Paniagua MD - [facility] Work Phone: Start: 02-17-2025 Dr. Karon Nunes MD - [facility] Work Phone: Start: 02-16-2025 Dr. Felicia Paniagua MD - [facility] Work Phone: Start: 02-15-2025 Dr. Felicia Paniagua MD - [facility] Work Phone: Start: 02-14-2025 ambulatory Felicia Paniagua Facility :[facility] Start: 02-14-2025 End: 02-19-2025 Evaluation and management of inpatient Dr. Genevieve Wu MD Work Phone: -[facility] Start: 02-14-2025 End: 02-19-2025 Dr. Liudmila Morin MD -[facility] Work Phone: Start: 01-30-2025 ambulatory Genevieve Wu Facili ty:[facility] Start: 01-30-2025 Genevieve Wu MD [facility] Start: 01-20-2025 End: 01-20-2025 [facility] Start: 01-16-2025 ambulatory MARCOS [facility] Start: 01-02-2025 End: 01-02-[address] Genevieve Wu MD Work Phone: [facility] Start: 01-02-2025 End: 01-02-2025 Departed Referred Genevieve Wu MD [facility] Start: 01-02-2025 Registered Referred Genevieve Wu MD [facility] Start: 01-02-2025 End: 01-02-2025 Genevieve Wu MD [facility] Start: 01-02-2025 End: 01-02-2025 ambulatory Genevieve CUBA Facility:[facility] Start: 12-09-2024 ambulatory Willian Palm Facility:[facility] Start: 12-07-2024 End: 12-07-2024 Patient encounter procedure FAMILY PRACTICE DOCTOR Idalia Stanley -[facility] Work Phone: Start: 12-07-2024 End: 12-07-2024 TARA Stanley -[facility] Work Phone: Start: 12-07-2024 End: 12-07-[address] Genevieve Wu MD Work Phone: [facility] Work Phone: Start: 11-29-2024 End: 11-29-[address] Vish Cook MD -[facility] Work Phone: Start: 11-29-2024 End: 11-29-2024 Dr. Vish Cook MD -[facility] Work Phone: Start: 11-29-2024 End: 11-29-[address] Genevieve Wu MD Work Phone: [facility] Work Phone: Start: 11-28-2024 End: 11-28-[address] Willian Palm DO -Cat Scan [facility] Work Phone: Start: 11-28-2024 End: 11-28-[address] Genevieve Wu MD Work Phone: [facility] Work Phone: Start: 11-28-2024 End: 11-28-2024 Departed Referred Genevieve Wu MD -[facility] Start: 11-28-2024 Registered Referred Genevieve Wu MD -[facility] Start: 11-28-2024 End: 11-28-2024 Genevieve Wu MD -[facility] Start: 11-28-2024 End: 11-28-2024 ambulatory Willian Palm Facility:[facility] Start: 11-21-2024 End: 11-21-[address] Genevieve Wu MD Work Phone: -[facility] Start: 11-21-2024 End: 11-21-2024 Patient encounter procedure Barbara Castro FAMILY PRACTICE DOCTOR-C -[facility] Work Phone: Start: 11-21-2024 End: 11-21-2024 Barbara Castro FAMILY PRACTICE DOCTOR-C -[facility] Work Phone: Start: 11-08-2024 Non-patient / Non-visit Dr. Sharon Crouch MD -[facility] Start: 11-08-2024 End: 11-08-[address] Nicci Lemus MD Work Phone: [facility] Work Phone: Start: 11-08-2024 End: 11-08-[address] Yunior Desai MD -[facility] Work Phone: Start: 11-08-2024 End: 11-08-2024 Dr. Sharon Crouch MD -[facility] Start: 11-08-2024 End: 11-08-2024 ambulatory Yunior Desai Facility:[facility] Start: 10-31-2024 End: 10-31-2024 Departed Referred Genevieve NguyễnJanes [facility] Start: 10-31-2024 End: 10-31-2024 Genevieve NguyễnJanes [facility] Start: 10-31-2024 End: 10-31-2024 ambulatory Efhaseeb Wu OLS Facility:[facility] Start: 10-27-2024 End: 10-27-[address] Genevieve Wu MD Work Phone: -[facility] Start: 10-27-2024 End: 10-27-2024 Patient encounter procedure Barbara Castro NP- -[facility] Work Phone: Start: 10-27-2024 End: 10-27-2024 Barbara Castro FAMILY PRACTICE DOCTOR- -[facility] Work Phone: Start: 10-05-2024 End: 10-05-[address] Yunior Desai MD -[facility] Work Phone: Start: 10-05-2024 End: 10-05-2024 ambulatory Yunior Desai Facility:[facility] Start: 10-03-2024 End: 10-03-[address] Nicci Lemus MD Work Phone: [facility] Work Phone: Start: 10-03-2024 End: 10-03-2024 Departed Referred Genevieve NguyễnJanes [address] [facility] [facility] Start: 10-03-2024 End: 10-03-2024 ambulatory Genevieve CUBA Facility:[facility] Start: 09-08-2024 End: 09-08-[address] Willian Palm DO -[facility] Work Phone: Start: 09-08-2024 End: 09-08-2024 ambulatory Willian Palm Facility:[facility] Start: 08-29-2024 End: 08-29-2024 [facility] Start: 08-29-2024 End: 08-29-2024 ambulatory Genevieve Galavizdrew OLS Facility:[facility] Start: 08-11-2024 End: 08-11-2024 ambulatory MARCOS [facility] Start: 08-03-2024 End: 08-03-[address] Genevieve Wu MD -Cat Scan [facility] Work Phone: Start: 08-03-2024 End: 08-03-2024 ambulatory Gerardokarleysharon Galavize Facility:[facility] Start: 08-01-2024 ambulatory Gerardokarleysharon Jazmin OLS Fa cility:[facility] Start: 08-01-2024 Registered Referred Genevieve Wu MD -[facility] Start: 07-19-2024 End: 07-19-[address] Vish Cook MD -[facility] Work Phone: Start: 07-19-2024 End: 07-19-2024 ambulatory Nicci [facility] Facility:[facility] Start: 07-12-2024 End: 07-12-2024 ambulatory Genevieve Wu Facility:[facility] Start: 07-12-2024 End: 07-12-[address] Genevieve Wu MD -[facility] Work Phone: Start: 07-04-2024 End: 07-04-2024 ambulatory Barbara Castro FAMILY PRACTICE DOCTOR Facility:[facility] Start: 07-04-2024 End: 07-04-2024 Patient encounter procedure Barbara Castro FAMILY PRACTICE DOCTOR-C -[facility] Work Phone: Start: 06-30-2024 ambulatory [facility] Facility:[facility] Start: 06-30-2024 Registered Referred Genevieve Wu MD -[facility] Start: 06-27-2024 End: 06-27-2024 ambulatory Barbara Castro FAMILY PRACTICE DOCTOR Facility:[facility] Start: 06-23-2024 ambulatory [facility] Facility:[facility] Start: 06-21-2024 End: 06-21-2024 ambulatory Genevieve Wu Facility:[facility] Start: 06-20-2024 End: 06-20-2024 ambulatory Matthew FAMILY PRACTICE DOCTOR Facility:[facility] Start: 06-17-2024 ambulatory Nicci Lemus Facility:[facility] Start: 06-16-2024 End: 06-16-2024 ambulatory Matthew FAMILY PRACTICE DOCTOR Facility:[facility] Start: 06-11-2024 End: 06-11-2024 ambulatory Hilaria [facility] Facility:[facility] Start: 06-07-2024 End: 06-14-2024 ambulatory [facility] Facility:[facility] Start: 05-30-2024 End: 05-30-2024 Emergency department patient visit Nicci Lemus Facility:[facility] Start: 02-23-2024 End: 02-23-2024 Historical Summary DUNCAN ZAVALA HEALTH INFORMATICS SPECIALIST-C Work Phone: [facility] Start: 02-05-2024 End: 02-05-2024 ambulatory MARCOS WHITE [facility] Start: 08-17-2023 End: 08-17-[address] Nicholas Cohen Work Phone: [facility] Work Phone: Start: 08-17-2023 End: 08-17-[address] Nicholas Cohen Work Phone: [facility] Work Phone: Start: 08-14-2023 End: 08-14-[address] Nicholas Cohen Work Phone: [facility] Work Phone: Start: 08-14-2023 End: 08-14-[address] Nicholas Cohen Work Phone: [facility] Work Phone: Start: 08-10-2023 End: 08-10-[address] Nicholas Cohen Work Phone: [facility] Work Phone: Start: 07-21-2023 End: 07-21-[address] Nicholas Cohen Work Phone: [facility] Work Phone: Start: 05-25-2023 End: 05-25-[address] Lalo Palm Work Phone: [facility] Work Phone: Start: 05-25-2023 End: 05-25-[address] Lalo Palm Work Phone: [facility] Work Phone: Start: 05-25-[address] Kamari Palm Work Phone: [facility] Work Phone: Start: 05-14-2023 End: 05-14-2023 Office outpatient visit 15 minutes [facility] Work Phone: [facility] Start: 04-23-2023 Non-patient / Non-visit Dr. Lalo Palm Work Phone: [facility] Work Phone: Start: 04-22-2023 Non-patient / Non-visit Dr. Lalo Palm Work Phone: [facility] Work Phone: Start: 04-21-2023 Non-patient / Non-visit Dr. Lalo Palm Work Phone: [facility] Work Phone: Start: 04-20-2023 Non-patient / Non-visit Dr. Lalo Palm Work Phone: [facility] Work Phone: Start: 04-19-2023 Non-patient / Non-visit Dr. Lalo Palm Work Phone: [facility] Work Phone: Start: 04-18-2023 Non-patient / Non-visit Dr. Lalo Palm Work Phone: [facility] Work Phone: Start: 04-17-2023 Non-patient / Non-visit Dr. Lalo Palm Work Phone: [facility] Work Phone: Start: 04-16-2023 End: 04-23-2023 Evaluation and management of inpatient Dr. Lalo Palm Work Phone: [facility] Work Phone: Start: 04-05-2023 End: 04-05-[address] Lalo Palm Work Phone: [facility] Work Phone: Start: 04-05-2023 End: 04-05-[address] Lalo Palm Work Phone: [facility] Work Phone: Start: 03-17-2023 End: 03-17-[address] Lalo Palm Work Phone: [facility] Work Phone: Start: 11-17-2022 End: 11-17-2022 Results Review DUNCAN VALDEZP-C [email or web address] Start: 11-13-2022 End: 11-18-[address] NICCI LEMUS MD Facility:A Start: 11-13-2022 End: 11-13-2022 Patient encounter procedure DUNCAN VALDEZP-C Work [email or web address] Start: 11-13-2022 End: 11-13-2022 Office outpatient visit 15 minutes [facility] Start: 08-04-2022 End: 08-04-2022 Historical Summary [facility] Work Phone: [facility] [employer] [facility] Start: 07-04-2022 End: 07-04-2022 Patient encounter procedure [facility] Start: 07-01-2022 End: 07-01-2022 Results Review [facility] Work Phone: [facility] [employer] Start: 06-30-2022 End: 06-30-2022 Lab Only [facility] SPECIALIST-C [facility] Start: 06-30-2022 End: 06-30-2022 Office outpatient visit 25 minutes [facility] Work Phone: [facility] [employer] Start: 04-24-2022 End: 04-24-2022 Phone Encounter [facility] Work Phone: [facility] [employer] Start: 04-23-2022 End: 04-23-2022 Medication Refill/Order [facility]-C Work [facility] Start: 04-07-2022 End: 04-07-2022 Office outpatient new 60 minutes [facility] Work Phone: [facility] [employer] Start: 02-15-2022 End: 02-15-2022 Emergency department patient visit Dr. Lalo Palm Work Phone: [facility] Start: 02-11-2022 End: 02-11-[address] Lalo Palm Work Phone: [facility] Work Phone: Start: 02-11-2022 End: 02-11-[address] Lalo Palm Work Phone: [facility] Start: 02-11-2022 End: 02-11-[address] Lalo Palm Work Phone: [facility] Start: 12-24-2021 End: 12-24-[address] Lalo Palm Work Phone: [facility] Start: 12-13-2021 End: 12-28-2021 Evaluation and management of inpatient Dr. Lalo Palm Work Phone: [facility] Start: 12-13-2021 Non-patient / Non-visit Dr. Lalo Palm Work Phone: [facility] Start: 12-12-2021 Non-patient / Non-visit Dr. Lalo Palm Work Phone: [facility] Start: 12-11-2021 End: 12-13-2021 Evaluation and management of inpatient Dr. Lalo Palm Work Phone: [facility] 3 Start: 10-29-2021 Non-patient / Non-visit Dr. Lalo Palm Work Phone: [facility] Start: 09-26-2021 End: 09-26-[address] Lalo Palm Work Phone: [facility] Start: 07-03-2020 End: 07-03-2020 Subsequent hospital visit by physician Gerson Adamson Work Phone: [facility] Comment on above: Other closed displac ed fracture of distal end of left humerus, initial encounter Procedures Date Procedure Procedure Detail Performing Clinician Start: 02-19-2025 Blood count smear mc rscp w/mnl difrntl wbc count Dr. Genevieve uW MD Work Phone: Start: 02-19-2025 Estimated creatinine [...] 30 min ea 30 d DAYANNA BONNY HANNAH Start: 04-07-2022 End: 04-07-2022 Collj & interpj [...] b all. Screws and plates placed IVÁN HSERITA Comment on above: 2016 Shoulder surgery IVÁN JALEN COLON Comment on above: [address] Lalo parra Work Phone: Viral antigen assay Dr. Willie Palm Work Phone: Plan of Treatment Date Care Activity Detail Author Start: 02-19-2025 Patient [facility] Start: 02-14-2025 Following clinical pathway protocol [facility] Start: 02-14-2025 Assessment of risk o f venous thromboembolism [facility] Start: 02-14-2025 Elevation of head of bed [facility] Start: 02-14-2025 Inhalation therapy procedure [facility] Start: 02-14-2025 Insertion of cathete r into peripheral vein [facility] Start: 02-14-2025 Patient education [facility] Start: 02-14-2025 Providing care accor ding to [facility] Start: 02-14-2025 Provision of activit y privileges [facility] Start: 02-14-2025 Referral to occupati onal therapist [facility] Start: 02-14-2025 Referral to service [facility] Start: 02-14-2025 [facility] Start: 02-14-2025 Bacteria identified in Sputum by Culture [facility] Start: 02-14-2025 Legionella pneumophi la Ag [Presence] in Urine [facility] Start: 02-14-2025 Streptococcus pneumo niae antigen assay [facility] Start: 02-14-2025 Verification routine [facility] Start: 02-14-2025 Admission procedure [facility] Start: 02-14-2025 Hospital admission, emergency, from emergency room, medical nature [facility] Start: 02-14-2025 [facility] Start: 02-14-2025 Consultation [facility] Start: 02-14-2025 Patient referral to dietitian [facility] Start: 04-23-2023 Patient discharge [facility] Start: 04-18-2023 [facility] Start: 04-16-2023 Application of intermittent pneumatic compression device [facility] Start: 04-16-2023 Aspiration precautions [facility] Start: 04-16-2023 Assessment of risk o f venous thromboembolism [facility] Start: 04-16-2023 Fall prevention [facility] Start: 04-16-2023 Inhalation therapy procedure [facility] Start: 04-16-2023 Insertion of cathete r into peripheral vein [facility] Start: 04-16-2023 Introduction of urin inga catheter [facility] Start: 04-16-2023 Measuring intake and output [facility] Start: 04-16-2023 Providing care accor ding to [facility] Start: 04-16-2023 Provision of activit y privileges [facility] Start: 04-16-2023 Referral to occupati onal therapist [facility] Start: 04-16-2023 Referral to service [facility] Start: 04-16-2023 [facility] Start: 04-16-2023 Following clinical pathway protocol [facility] Start: 04-16-2023 Admission procedure [facility] Start: 04-16-2023 Patient referral to dietitian [facility] Start: 11-13-2022 Blood occult peroxid ase actv qual feces 1 [email or web address] Start: 11-13-2022 Blood count complete auto&auto difrntl wbc [email or web address].; [facility], [employer] Start: 06-30-2022 Cv strs tst xers&/or rx cont ecg w/si&r CARDIOVASCULAR STRESS [id number] ISCAN- WITH IMAGING - ([id number]) ([id number]) Start: 30-Jun-2022 [facility] [email or web address].; [email or web address] Start: 06-30-2022 Ecg routine ecg w/le ast 12 lds w/i&r ELECTROCARDIOGRAM, COMPLETE (51351) Start: 30-Jun-2022 [email or web address].; [facility]. Start: 04-28-2022 [facility] of [facility]; [email or web address]. Start: 04-28-2022 Blood count complete auto&auto difrntl wbc [facility].; [email or web address]. Start: 04-28-2022 Comprehensive metabo lic panel [email or web address].; [facility] [employer] [facility]. Start: 04-07-2022 Adv care pln tlkd & alt dcsn maker docd ADV CARE PLAN DISCUSSED & DOCUMENTED, SURROGATE OR PLAN IN PLACE ([id number]) Start: 07-Apr-2022 [facility] [employer] [facility]; [facility] [employer] [email or web address]. Start: 02-11-2022 Thiamine measurement [facility] Work Phone: Start: 02-01-2022 Blood chemistry [facility] Work Phone: Start: 01-25-2022 Blood chemistry [facility] Work Phone: Start: 01-18-2022 Blood chemistry [facility] Work Phone: Start: 01-11-2022 Blood chemistry [facility] Work Phone: Start: 01-04-2022 Blood chemistry [facility] Work Phone: Start: 12-29-2021 Development of care plan [facility] Work Phone: Start: 12-28-2021 Blood chemistry [facility] Work Phone: Start: 12-28-2021 Patient discharge [facility] Work Phone: Start: 12-27-2021 Referral to service [facility] Work Phone: Start: 12-24-2021 [facility] Work Phone: Start: 12-23-2021 End: 12-24-2021 [facility] Work Phone: Start: 12-21-2021 Development of care plan [facility] Work Phone: Start: 12-20-2021 End: 12-20-2021 [facility] Work Phone: Start: 12-19-2021 [facility] Work Phone: Start: 12-18-2021 Blood chemistry [facility] Work Phone: Start: 12-17-2021 Speech therapy management [facility] Work Phone: Start: 12-17-2021 Blood chemistry [facility] Work Phone: Start: 12-17-2021 [facility] Work Phone: Start: 12-16-2021 Speech therapy assessment [facility] Work Phone: Start: 12-16-2021 Blood chemistry [facility] Work Phone: Start: 12-16-2021 [facility] Work Phone: Start: 12-15-2021 Blood chemistry [facility] Work Phone: Start: 12-14-2021 Development of care plan [facility] Work Phone: Start: 12-14-2021 Patient referral to dietitian [facility] Work Phone: Start: 12-14-2021 Developing a treatme nt plan [facility] Work Phone: Start: 12-14-2021 Blood chemistry [facility] Work Phone: Start: 12-13-2021 Verification routine [facility] Work Phone: Start: 12-13-2021 Following clinical pathway protocol [facility] Work Phone: Start: 12-13-2021 Admission procedure [facility] Work Phone: Start: 12-13-2021 Measuring intake and output [facility] Work Phone: Start: 12-13-2021 Patient referral to dietitian [facility] Work Phone: Start: 12-13-2021 Referral to occupati onal therapist [facility] Work Phone: Start: 12-13-2021 Referral to service [facility] Work Phone: Start: 12-13-2021 Vital signs measurements [facility] Work Phone: Start: 12-13-2021 End: 12-14-2021 [facility] Work Phone: Start: 12-13-2021 Patient discharge [facility] Work Phone: Start: 12-11-2021 End: 12-12-2021 [facility] Work Phone: Start: 12-11-2021 End: 12-11-2021 Blood culture [facility] Work Phone: Start: 12-11-2021 Application of intermittent pneumatic compression device [facility] Work Phone: Start: 12-11-2021 Following clinical pathway protocol [facility] Work Phone: Start: 12-11-2021 Aspiration precautions [facility] Work Phone: Start: 12-11-2021 Assessment of risk o f venous thromboembolism [facility] Work Phone: Start: 12-11-2021 Fall prevention [facility] Work Phone: Start: 12-11-2021 Incentive spirometry [facility] Work Phone: Start: 12-11-2021 Inhalation therapy procedure [facility] Work Phone: Start: 12-11-2021 Insertion of cathete r into peripheral vein [facility] Work Phone: Start: 12-11-2021 Introduction of urin inga catheter [facility] Work Phone: Start: 12-11-2021 Measuring intake and output [facility] Work Phone: Start: 12-11-2021 Oxygen therapy [facility] Work Phone: Start: 12-11-2021 Providing care accor ding to standard [facility] Work Phone: Start: 12-11-2021 Provision of activit y privileges [facility] Work Phone: Start: 12-11-2021 Referral to occupati onal therapist [facility] Work Phone: Start: 12-11-2021 Referral to service [facility] Work Phone: Start: 12-11-2021 End: 12-11-2021 [facility] Work Phone: Start: 12-11-2021 Verification routine [facility] Work Phone: Start: 12-11-2021 Admission procedure [facility] Work Phone: Start: 12-11-2021 Patient referral to dietitian [facility] Work Phone: Start: 12-10-2021 [facility] Work Phone: Start: 10-29-2021 Patient referral [facility] Work Phone: Start: 06-27-2020 Annual Wellness Visi t (AWV) Annual Wellness Visit (AWV) [place], [place] Start: 02-14-2020 Influenza vaccination Flu vaccine (# 1) [place], [place] Start: 01-18-1996 Screening for osteoporosis DEXA (modify frequency per FRAX score) [place], [place] Start: 1991 Shingles Vaccine (1 of 2) Buitrago gles Vaccine (1 of 2) [place], [place] Start: 01-18-1960 DTaP/Tdap/Td vaccine (1 - Tdap) DTaP/Tdap/Td vaccine (1 - Tdap) [place], [place] Start: 1941 Hepatitis C screening Hepatitis C [place], [place] Bacteria identified in Blood by Culture Blood Culture [facility] Work Phone: Blood culture [facility] Work Phone: CT Chest WO contrast [facility] End: 07-03-2020 CT ELBOW LEFT WO CONTRAST [place] Comment on above: 1 Occurrences starti ng 07/03/2020 until 07/03/2020 End: 07-03-2020 CT UPPER EXTREMITY LEFT WO CONTRAST CT UPPER EXTREMITY LEFT WO CONTRAST Imaging Routine Once for 1 Occurrences starting 07/03/2020 until 07/03/2020 [place] Comment on above: Once for 1 Occurrenc es starting 07/03/2020 until 07/03/2020 CT UPPER EXTREMITY L EFT WO CONTRAST CT UPPER EXTREMITY LEFT WO CONTRAST Imaging Routine 07/03/2020 12:46 PM EST [place], [place] MR Brain WO contrast [facility] Work Phone: Patient Education [facility] Work Phone: Patient referral [facility] Work Phone: Thiamine measurement [facility] Work Phone: [facility] Immunizations Immunization Date Immunization Notes Care Provider Jo-Ann grimaldomelanie 05-14-2023 influenza, injectabl e, quadrivalent, preservative free [facility] Work Phone: [facility]; [facility] Comment on above: Site: Right Tessie He iven: * Influenza (Flu) Vaccine (Inactivated or Recombinant) (01/18/21) 05-14-2023 influenza virus vacc ine, unspecified formulation [facility] Work Phone: [facility]; [employer] [facility] Comment on above: Had immunization. 01-02-2021 Covid (Pfizer) Dr. Lalo marquis Work Phone: [facility] 12-12-2020 Covid (Pfizer) Dr. Lalo marquis Work Phone: [facility] 06-18-[address] Lalo Palm Work Phone: [facility] 01-07-2018 pneumococcal polysaccharide vaccine, [address] Lalo Palm Work Phone: [facility] 01-07-[address] Bhavin Palm Work Phone: [facility] Work Phone: 01-07-2018 pneumococcal vaccine , unspecified formulation Dr. Lalo Palm Work Phone: [facility] 06-04-2001 TD(adult) unspecifie d formulation Dr. Lalo Palm Work Phone: [facility] Payers Date Payer Category Payer Self-pay [id number] 2020 Medicare AETNA MEDICARE A ETNA MEDICARE-ADVANTAGE PPO [id number] 2020-Present [address] [place] [address] Medicare [id number] 2006 Private Health Insurance 101 [id number] 1941 Unknown [id number] 2.16.840.1.309177.3.579.2.6 27 1941 Unknown [id number] 2.16.840.1.569906.3.579.2.6 51 1941 Unknown [id number] 2.16.840.1.463073.3.579.2.6 51 1941 Unknown [id number] 2.16.840.1.683667.3.579.2.6 51 1941 Unknown [id number] 2.16.840.1.390555.3.579.2.6 51 Medicare [id number] Unknown [facility] PACKAGE PLAN [id number] Unknown [id number] 2.16.840.1.693613.3.579.2.4 62 Unknown [id number] 2.16.840.1.271215.3.579.2.4 62 Unknown [id number] 2.16.840.1.279176.3.579.2.4 62 Unknown [id number] 2.16.840.1.322268.3.579.2.4 62 Unknown [id number] 2.16.840.1.173903.3.579.2.4 62 Unknown [id number] 2.16.840.1.988012.3.579.2.4 62 Unknown [id number] 2.16.840.1.358968.3.579.2.4 62 Unknown [id number] 2.16.840.1.539321.3.579.2.4 62 Unknown [id number] 2.16.840.1.232292.3.579.2.4 62 Unknown [id number] 2.16.840.1.290539.3.579.2.4 62 Unknown [id number] 2.16.840.1.197106.3.579.2.4 62 Unknown [id number] 2.16.840.1.334691.3.579.2.4 62 Unknown [id number] 2.16.840.1.764307.3.579.2.4 62 Unknown [id number] 2.16.840.1.555759.3.579.2.4 62 Unknown [id number] 2.16.840.1.520082.3.579.2.4 62 Unknown [id number] 2.16.840.1.687780.3.579.2.4 62 Unknown [id number] 2.16.840.1.079153.3.579.2.4 62 Unknown [id number] 2.16.840.1.529759.3.579.2.4 62 Unknown [id number] 2.16.840.1.689877.3.579.2.4 62 Unknown [id number] 2.16.840.1.961983.3.579.2.4 62 Unknown [id number] 2.16.840.1.618116.3.579.2.4 62 Unknown [id number] 2.16.840.1.236758.3.579.2.4 62 Unknown [id number] 2.16.840.1.832678.3.579.2.4 62 Unknown [id number] 2.16.840.1.910453.3.579.2.4 62 Unknown [id number] 2.16.840.1.995565.3.579.2.4 62 Unknown [id number] 2.16.840.1.619098.3.579.2.4 62 Unknown [id number] 2.16.840.1.089203.3.579.2.4 62 Unknown [id number] 2.16.840.1.715188.3.579.2.4 62 Unknown [id number] 2.16.840.1.260836.3.579.2.4 62 Unknown [id number] 2.16.840.1.670758.3.579.2.4 62 Unknown [id number] 2.16.840.1.148047.3.579.2.4 62 Unknown [id number] 2.16.840.1.459833.3.579.2.4 62 Unknown [id number] 2.16.840.1.324754.3.579.2.4 62 Unknown [id number] 2.16.840.1.304630.3.579.2.4 62 Unknown [id number] 2.16.840.1.161081.3.579.2.4 62 Unknown [id number] 2.16.840.1.704792.3.579.2.4 62 Unknown [id number] 2.16.840.1.054163.3.579.2.4 62 Unknown [id number] 2.16.840.1.693870.3.579.2.4 62 Unknown [id number] 2.16.840.1.201454.3.579.2.4 62 Unknown [id number] 2.16.840.1.762534.3.579.2.4 62 Unknown [id number] 2.16.840.1.149965.3.579.2.4 62 Unknown [id number] 2.16.840.1.975426.3.579.2.4 62 Unknown [id number] 2.16.840.1.991087.3.579.2.4 62 Unknown [id number] 2.16.840.1.270148.3.579.2.4 62 Unknown [id number] 2.16.840.1.219017.3.579.2.4 62 Unknown [id number] 2.16.840.1.834863.3.579.2.4 62 Social History Date Type Detail Facility Start: 07-03-2020 End: 04-16-2023 Tobacco smoking status NHIS Unknown if ever smoked [facility] Sex Assigned At Not on file [place] Exposure to SARS-CoV -2 (event) Not sure [place], [place] Start: 1940 Sex Assigned At Female W [facility] Start: 01-04-2018 None [facility] Start: 01-04-2018 Alone [facility] Start: 01-15-2018 Non-smoker [facility] Alcohol Use: Alcohol Use: ; N o Alcohol Use. [facility]; [facility] Marital status: Marital status: ; . [facility]; [facility] Tobacco use: Tobacco use: ; F ormer smoker. [facility]; [facility]; [facility] Work Phone: Occasional alcohol use [facility]; [facility] Work Phone: Never smoked tobacco [facility]; [facility] Work Phone: Start: 06-07-2024 End: 02-14-2025 Ex-smoker [facility] Medical Equipment Procedure Code Equipment Code [...] CANNULA JOSE MARIA NAIL FDA Start: 12-30-2017 FDA Start: 12-30-2017 FDA Start: 12-30-2017 Goals Date Patient Goal Desired Activity /State Functional Status Date Assessment Result Facility 02-19-2025 Functional status Chair [facility] Work Phone: 04-23-2023 Functional status Bathroom Privilege [facility] Work Phone: 12-28-2021 Functional status Ambulates;Up ad gary [facility] Work Phone: 12-26-2021 Functional status Ambulates [facility] Work Phone: 12-13-2021 Functional status Patient Activity Chair [facility] Work Phone: 12-13-2021 Functional status With Assist of 1 [facility] Work Phone: Mental Status Date Assessment Result Facility 02-19-2025 Cognitive function Touch/Shaking [facility] Work Phone: 02-14-2025 Cognitive function Drowsy;Disori ented;Responds to vocal stimuli [facility] Work Phone: 04-23-2023 Cognitive function Appropriate;Cooperativ e [facility] Work Phone: 04-22-2023 Cognitive function Arousable To Voice/Nam e [facility] Work Phone: 02-15-2022 Cognitive function Level Of Cons ciousness Awake;Alert;Appropriate;Follow s Commands [facility] Work Phone: 12-28-2021 Cognitive function Voice/Name [facility] Work Phone: 12-27-2021 Cognitive function Appropriate;C ooperative;Restle ss;Guarded [facility] Work Phone: 12-26-2021 Cognitive function Voice/Name [facility] Work Phone: 12-24-2021 Cognitive function Calm;Relaxed [facility] Work Phone: 12-13-2021 Cognitive function Patient Orientation Pe rson [facility] Work Phone: 12-13-2021 Cognitive function Voice/Name [facility] Work Phone: 12-12-2021 Cognitive function Fatigued [facility] Work Phone: Clinical Notes 02-15-2022 to 02-19-2025 Note Date & Type Note Facility 02-19-2025 Note [facility] 02-18-2025 Progress note Note Date/Time February 18, 2025 3:08pm [facility] Medical Records Department [address] [place] [id number] Progress Note 02/18/25 1500 MR#: [id number] Acct: [id number] Name: SAPNA BULLARD Rep #:[id number] : 1940 85 From: Felicia Paniagua MD PCP: Dr. Genevieve Wu MD Status:A DM IN Location: MS3 BK689-4 Subjective Subjective Patient seen and examined with [...] 02/18/25 10:19 02/18/25 10:19 02/18/25 10:19 02/18/25 10:20 Oxygen Delivery Method Room Air Weight: [...] % (Auto) 61.7, Lymph % (Auto) 21.0, [place] % (Auto) 13.3 H, Eos % (Auto) [...] (Auto) 71.4 H, Lymph % (Auto) 14.7L, [place] % (Auto) 10.8 H, Eos % (Auto) [...] sitter again. Charges/Coding Visit Charges Inpatient E&M: 58160 Subs Hosp L2 02/18/25 1508 <Electronically signed by Felicia Paniagua MD> Felicia Paniagua MD Cosigner Signature (if applicable): CC: ~ Signed [facility] Work Phone: 1([phone]) 528-926709-05-2025 Progress note Author [facility] Note Date/Time February 17, 2025 4:00pm [facility] Medical Records Department [address] [place] [address] Progress Note 02/17/25 1048 MR#: [id number] Acct: [id number] Name: SAPNA BULLARD Drew Rep #:[id number] : 1940 85 From: Felicia Paniagua MD PCP: Dr. Genevieve Wu MD Status:A DM IN Location: MS3 LH622-0 Subjective Subjective Patient seen and examined with [...] facilitate this. Charges/Coding Visit Charges Inpatient E&M: 59934 Subs Hosp L2 02/17/25 1600 <Electronically signed by Felicia Paniagua MD> Felicia Paniagua MD Cosigner Signature (if applicable): CC: ~ Signed [facility] Work Phone: [phone]) [phone] [facility] Note Date/Time February 17, 2025 6:39am [facility] Medical Records Department [address] [place] [address] Progress Note - Hospitalist 02/17/25 0303 MR#: [id number] Acct: [id number] Name: SAPNA BULLARD Rep #:[id number] : 1940 85 From: Karon Nunes MD PCP: Dr. Genevieve Wu MD Status:A DM IN Location: [place] [address] Hospitalist Note Patient with notable agitation, aggressive behavior, will trial IM haldol x 1. 02/17/25 0304 <Electronically signed by Karon Nunes MD> Cosigner Signature (if applicable): CC: ~ Signed ADDENDUM by Dr. Karon Nunes MD on 02/17/25 at 0639 Addendum Will increase patient risperidone. 02/17/25 0639<Electronically signed by Karon Nunes MD> Cosigner Signature (if applicable): cc: ~* Signed [facility] Work Phone: 1(449) 265-866809-04-2025 Progress note Author Felicia [facility] Note Date/Time February 16, 2025 5:29pm [facility] Medical Records Department [address] [place] [address] Progress Note 02/16/25 1324 MR#: [id number] Acct: [id number] Name: SAPNA BULLARD Rep #:[id number] : 1940 85 From: Felicia Paniagua MD PCP: Dr. Genevieve Wu MD Status:A DM IN Location: MS3 ST359-4 Subjective Subjective Patient seen and examined with [...] (Auto) 67.8, Lymph % (Auto) 14.9 L, Lon[place] % (Auto) 14.1 H, Eos % (Auto) [...] DC tomorrow Charges/Coding Visit Charges Inpatient E&M: 47625 Subs Hosp L2 02/16/25 8473 <Electronically signed by Felicia Paniagua MD> Felicia Paniagua MD Cosigner Signature (if applicable): CC: ~ Signed [facility] Work Phone: 1([phone]) 667-967709-03-2025 Progress note Author Felicia Paniagua [facility] Note Date/Time February 15, 2025 6:32pm [facility] Medical Records Department [address] [place] [address] Progress Note 02/15/25 1730 MR#: [id number] Acct: [id number] Name: SAPNA BULLARD Rep #:[id number] : 1940 85 From: Felicia Paniagua MD PCP: Dr. Genevieve Wu MD Status:A DM IN Location: MS3 ES760-2 Subjective Subjective Patient seen and examined. She was lethargic and not really answering questions. Unable to do review of the systems. I saw her with her nurse by [facility]. Review of symptoms otherwise negative. She has remained hemodynamically stable. Objective Data Objective Data Vital Signs: Vital Signs Temp Pulse Resp BP Pulse Ox O2 Del Method 97.7 F L 74 16 113/49 L 94 Room Air 02/15/25 10:07 02/15/25 10:07 02/15/25 10:07 02/15/25 10:07 02/15/25 10:07 02/15/25 10:46 Oxygen Delivery Method Room [...] (Auto) 63.9, Lymph % (Auto) 16.8 L, [place] % (Auto) 16.6 H, Eos % (Auto) [...] prophylaxis: SCDs Charges/Coding Visit Charges Inpatient E&M: 53620 Subs Hosp L2 02/15/25 1832 <Electronically signed by Felicia Paniagua MD> Felicia Paniagua MD Cosigner Signature (if applicable): CC: ~ Signed [facility] Work Phone: [phone]) [phone] Progress note Author Farrah Leone [facility] Note Date/Time February 14, 2025 10:08pm [facility] Medical Records Department [address] [place] [address] Progress Note 02/14/252200 MR#: [id number] Acct: [id number] Name: SAPNA BULLARD Rep #:[id number] : 1940 85 From: Farrah Haas PCP: Dr. Genevieve Wu MD Status:A DM IN Location: MS3 WW983-8 Progress Note Notified by nursing that pt [...] IM x1. 02/14/252207 <Electronically signed by Farrah DELUNA> Farrah DELUNA Cosigner Signature (if applicable): CC: ~ Signed [facility] Work Phone: 1([phone]) 188-407409-02-2025 History and physical note Author Liudmila Morin [facility] Note Date/Time February 14, 2025 7:35pm [facility] Medical Records Department [address] [place] [address] H&P Exam - Hospitalist 02/14/25 1511 MR#: [id number] Acct: [id number] Name: SAPNA BULLARD Rep #:[id number] : 1940 85 From: Liudmila Morin MD PCP: Dr. Genevieve Wu MD Status:A DM IN Location: MS3 KP104-7 HPI - General General Date of Admission: 02/14/25 Date of Service: 02/14/25 Chief Complaint: Altered mental status, weakness HPI Narrative SAPNA BULLARD, is a 85-year-old female history of GERD, dementia, essential tremor,restless leg syndrome who presented to [facility] ED 02/14/2025 from [facility] for confusion, weakness, stool and urinary [...] up. Unable to obtain any further history [facility] Medical History (Updated 02/14/25 @ 15:21 by [...] PRN Feve r, pain 07/19/24 Unknown History 1-03/24 acetaminophen 500 mg tablet 1,000 [...] Unknown History gram-2.25 kcal/mL oral liquid (Boost [facility]) propranolol 20 mg tablet 20 mg [...] details: PT frequency: 1-2 times per week herrera/scientology: Spiritism seatbelt use: always ROS ROS Narrative Unable [...] (Auto) 74.1 H, Lymph % (Auto)11.8 L, [place] % (Auto) 12.2 H, Eos % (Auto) [...] Clarity Clear, Urine pH 6.0, Ur Specific Reeders 1.015, Urine Protein Negative, Urine Glucose (UA) [...] pneumonia. 2. Suggestion of COPD. Reading Location: [facility] Assessment & Plan Assessment/Plan (1) Community acquired [...] Morin MD Charges/Coding Visit Charges Inpatient E&M: 12769 Init Hosp L2 02/14/25 1522 <Electronically signed by Liudmila Morin MD> Cosigner Signature (if applicable): CC: Dr. Genevieve Wu MD; Dr. Liudmila Morin MD~ Signed ADDENDUM by Dr. Liudmila Morin MD on 02/14/25 at 1935 Addendum Given patient is getting azithromycin we will hold off on continue donepezil as it is QTc prolonging potential, short-term holding of donepezil likely will not have a large impact 02/14/251934<Electronically signed by Liudmila Morin MD> Cosigner Signature (if applicable): cc: Dr. Genevieve Wu MD; Dr. Liudmila Morin MD ~* Signed [facility] Work Phone: 1(602) 886-295309-02-2025 Discharge summary Author Arya Gannon [facility] Note Date/Time February 14, 2025 5:46pm [facility] Medical Records Department [address] [place] [address] Emergency Department Summary 02/14/25 MR#: [id number] Acct: [id number] Name: SAPNA BULLARD Drew Rep #:[id number] : 1940 85 From: Arya de guzman DO PCP: Dr. Genevieve Wu MD Status:A DM IN Location: MS3 XI068-2 HPI History of Present Illness Chief Complaint: Weakness Narrative Narrative: Chief complaint and HPI: 85-year-old female with past medical history of dementia, GERD, HTN, essential tremor presents from [facility] for evaluation of confusion, weakness, stool and [...] Alert, grossly intact, sensation intact Psych: Cooperative [facility] Medical History Neuropathy Left bundle branch block [...] details: PT frequency: 1-2 times per week herrera/scientology: Spiritism seatbelt use: always EXAM Physical Exam Const [...] dementia, GERD, HTN, essential tremor presents from [facility] for evaluation of confusion, weakness, stool and [...] 74.1 H Lymph % (Auto) 11.8 L [place] % (Auto) 12.2 H Eos % (Auto) [...] Clarity Clear Urine pH 6.0 Ur Specific Reeders 1.015 Urine Protein Negative Urine Glucose (UA) [...] (Auto) Neut % (Auto) Lymph % (Auto) [place] % (Auto) Eos % (Auto) Baso % [...] Color Urine Clarity Urine pH Ur Specific Reeders Urine Protein Urine Glucose (UA) Urine Ketones Urine Occult Blood Urine Nitrite Urine Bilirubin Urine Urobilinogen Ur Leukocyte Esterase Urine RBC Urine WBC Ur Squamous Epith Cells Urine Bacteria Urine Mucus Radiography Diagnostic Testing: Clinical Impression(s) from Imaging Studies Chest X-Ray 02/14/25 11:40 IMPRESSION: 1. Lingular atelectasis or pneumonia. 2. Suggestion of COPD. Reading Location: [facility] Discharge Plan Disposition Disposition: Acute Care Hospital [facility] Discharge Date/Time: 02/14/25 15:50 What to do if you have Problems For any increased pain, shortness of breath, bleeding, nausea or vomiting, chestpain, or any unexpected problems, contact your Primary Care Provider. Call [facility] ([phone]) or report to the closest Emergency Room. Call 911 if necessary. 02/14/25 1746 <Electronically signed by Arya Gannon DO> Cosigner Signature (if applicable): CC: Dr. Genevieve Wu MD ~ Signed [facility] Work Phone: 1(558) 473-760309-02-2025 Radiology Diagnostic study [facility]06-17-2025 Evaluation note* Diagnosis Onset Date Resolution Status Admit Date Dementia chronic November 29 10:05am Essential tremor chronic November 10:05am Restless leg syndrome chronic Madhu e 2024 10:05am Vitamin D deficiency resolved November 29, 2024 10:05am Abnormal chest CT chronic December 072024 9:10am Community acquired pneumonia acute February 14, 2025 3:11pm [facility] Work Phone: [phone] Radiology Diagnostic study note [facility] Imaging Services [address] [place] [address] Chest without Contrast MR#: [id number] Acct: [id number] Name: SAPNA BULLARD Rep #: [id number] : 1940 F 84 From: Thaddeus Chaparro MD PCP: Dr. Genevieve Wu MD Status: R EG CLI Study:Chest without Contrast Date of Exam: 11/28/24 Exam# [id number] Ordering Dr: Valdez DO PROCEDURE: CHEST WITHOUT [...] 4. Other findings as noted. Reading Location: [id number] CC: Dr. Willian Palm DO; Dr. Genevieve Wu MD ~ Drilling Supervisor: Signed [facility] Work Phone: [phone]) [phone] Evaluation note* Diagnosis Onset Date Resolution Status [...] Abnormal chest CT chronic December 072024 9:10am [facility] Work Phone: [phone]) [phone] Evaluation note* Diagnosis Onset Date Resolution Status Admit Date Abnormal chest CT chronic August 142024 11:20am Left bundle branch block acute October 05, 2024 9:00am Abnormal chest CT chronic September 142024 9:00am Dementia chronic October 05 9:00am Hyperlipemia chronic October 05, 2024 9:00am [place] [facility] Work Phone: [phone]) 546-716103-27-2025 Evaluation note* Diagnosis Onset Date Resolution Status [...] D deficiency resolved November 29, 2024 10:05am [facility] Work Phone: [phone] Evaluation note* Diagnosis Onset Date Resolution Status [...] Abnormal chest CT chronic December 072024 9:10am [facility] Work Phone: [phone] Evaluation note* Diagnosis Onset Date Resolution Status Admit Date Anxiety chronic July 19, 2024 9:51am Dementia chronic July 19, 2024 9:51am Insomnia chronic July 19, 2024 9:51am Restless leg syndrome chronic Feb ruary 2024 9:51am Vitamin D deficiency chronic Febr uary 4th, 2025 9:51am Essential tremor inactive July 19, 2024 9:51am Abnormal chest CT chronic August 142024 11:20am Left bundle branch block acute October 05, 2024 9:00am Abnormal chest CT chronic September 142024 9:00am Dementia chronic October 05 9:00am Hyperlipemia chronic October 05, 2024 9:00am [facility] Work Phone: [phone] [facility]11-08-2023 Progress note Author John Johnston [facility] April 22, 2023 4:40pm Note Date/Time April 22, 2023 4 :41pm [facility] Medical Records Department [address] [place] [address] Progress Note - Hospitalist 04/22/231636 MR#: [id number] Acct: [id number] Name: SAPNA BULLARD Rep #:[id number] : 1940 83 From: John Johnston DO PCP: Dr. Nicci Lemus MD Status:ADM I N Location: [facility] MO737-4 Reason for Visit Reason for Visit: Diagnoses [...] 04/21/23 04/22/23 23:59 23:59 23:59 Intake Total 1910 / 1910 300 / 300 450 / 450 Output Total 1900 / 1900 800 / 800 Balance 1909 -1600 / -1600 -350 / -350 Medical Nutrition Assessment Dietitian: Malnutrition Criteria Met Start: 04/17/23 11:22 Freq: Status: Active Protocol: Document 04/17/23 11:22 NITZA (Rec: 04/17/23 11:22 [facility] Desktop) Nutrition Malnutrition Evidence of Malnutrition Exists [...] 35 minutes Charges/Coding Visit Charges Inpatient E&M: 51132 Subs Hosp L2 04/22/23 1640 <Electronically signed by John Johnston DO> Cosigner Signature (if applicable): CC: ~ Signed [facility] Work Phone: [phone]) 435-987811-07-2023 Progress note Author John Johnston [facility] April 21, 2023 5:05pm Note Date/Time April 21, 2023 4 :52pm [facility] Medical Records Department [address] [place] [address] [place] [address] Progress Note - Hospitalist 04/21/23 1649 MR#: [id number] Acct: [id number] Name: SAPNA BULLARD Rep #:[id number] : 1940 83 From: John Johnston DO PCP: Dr. Nicci Lemus MD Status:ADM I N Location: [place] [address] Reason for Visit Reason for Visit: Diagnoses [...] offered, patient will need [place] in [place] for [place]-term rehab services #3 acute cystitis-again patient will be transition to Keflex starting tomorrow #4 acute debility secondary to multiple medical problems including dementia, pneumonia, and cystitis-PT and OT are seeing patient, she will need short-term placement in a [place] facility #5 essential tremor-patient is on propranolol [...] 35 minutes Charges/Coding Visit Charges Inpatient E&M: 87685 Subs Hosp L2 04/21/23 1705 <Electronically signed by John Johnston DO> Cosigner Signature (if applicable): CC: ~ Signed [facility] Work Phone: 1([phone]) 384-144011-06-2023 Progress note Author John Mounited [facility]se[facility] April 20, 2023 7:08pm Note Date/Time April 20, 2023 7 :08pm [facility] Medical Records Department [address] [place] [address] Progress Note - Hospitalist 04/20/23 1859 MR#: [id number] Acct: [id number] Name: SAPNA BULLARD Rep #:[id number] : 1940 83 From: John Johnston DO PCP: Dr. Nicci Lemus MD Status:ADM I N Location: [place] 888321-1 Reason for Visit Reason for Visit: Diagnoses [...] (Auto) 65.0, Lymph % (Auto) 17.3 L, [place] % (Auto) 16.0 H, Eos % (Auto) [...] offered, patient will need [place] for [place]-term rehab services #3 acute cystitis-again patient will be transition to Keflex starting tomorrow #4 acute debility secondary to multiple medical problems including dementia, pneumonia, and cystitis-PT and OT are seeing patient, she will need short-term placement in a [place] facility #5 essential tremor-patient is on propranolol Total clinical time spent by myself addressing patient's medical issues, reviewing all of her data, and collaborating with patient's care team: 35 minutes Charges/Coding Visit Charges Inpatient E&M: 28924 Subs Hosp L2 04/20/231907 <Electronically signed by John Johnston DO> Cosigner Signature (if applicable): CC: ~ Signed [facility] Work Phone: [phone] 630-808811-05-2023 Progress note Author Pravin Cruz [facility] April 19, 2023 8:59am Note Date/Time April 19, 2023 8 :59am [facility] Medical Records Department [address] [place] [address] Progress Note - Hospitalist 04/19/23856 MR#: [id number] Acct: [id number] Name: SAPNA BULLARD Rep #:[id number] : 1940 83 From: Pravin ty MD PCP: Dr. Nicci Lemus MD Status:ADM I N Location: [place] [address] Subjective Subjective No issues overnight, she is [...] 04/18: Urine culture Bartholomew reported. E. coli 84068?63893 E. coli, ramon sensitivity sensitivity available. Continue [...] DVT: Lovenox Charges/Coding Visit Charges Inpatient E&M: 42500 Subs Hosp L2 04/19/23 0859 <Electronically signed by Pravin Cruz MD> Cosigner Signature (if applicable): CC: ~ Signed [facility] Work Phone: [phone]) [phone] Progress note Author Darinel Carlos [facility] April 18, 2023 2:11pm Note Date/Time April 18, 2023 1 0:00am [facility] Medical Records Department [address] [place] [address] Progress Note - Hospitalist 04/18/2359 MR#: [id number] Acct: [id number] Name: SAPNA BULLARD Rep #:[id number] : 1940 83 From: Darinel Morocho PCP: Dr. Nicci Lemus MD Status:ADM I N Location: [place] [address] Reason for Visit Reason for Visit: Diagnoses [...] The patient is an 83 y/o F [facility] ED on 04/16/23 with history of altered [...] 04/18: Urine culture Bartholomew reported. E. coli 87540?31603 E. coli, ramon sensitivity sensitivity available. Continue [...] Care Planning Charges/Coding Visit Charges Inpatient E&M: 32852 Subs Hosp L2 04/18/23 1411 <Electronically signed by Darinel Carlos MD> Cosigner Signature (if applicable): CC: ~ Signed [facility] Work Phone: [phone]) [phone] Progress note Author Darinel Carlos [facility] April 17, 2023 3:54pm Note Date/Time April 17, 2023 7 :31am [facility] Medical Records Department [address] [place] [address] Progress Note - Hospitalist 04/17/23727 MR#: [id number] Acct: [id number] Name: SAPNA BULLARD Rep #:[id number] : 1940 83 From: Darinel Morocho PCP: Dr. Nicci Lemus MD Status:ADM I N Location: [place] [address] Reason for Visit Reason for Visit: Diagnoses [...] 80.3 H, Lymph % (Auto) 10.8 L, [place] % (Auto) 8.0, Eos % (Auto) 0.1, [...] Sl. Cloudy, Urine pH 7.0, Ur Specific Reeders 1.010, Urine Protein 15 H, Urine Glucose [...] 73.6 H, Lymph % (Auto) 13.6 L, [place] % (Auto) 11.3 H, Eos % (Auto) [...] The patient is an 83 y/o F [facility] ED on 04/16/23 with history of altered [...] 113 Gm Tube) 1 applic TOPICAL 4X/DAY [facility]; Protocol Last Admin: 04/17/23 13:58 Dose: 1 applic Donepezil HCl (Donepezil Hcl 10 Mg Tablet) 10 mg PO QHS [facility] Last Admin: 04/16/23 22:31 Dose: 10 mg Guaifenesin (Guaifenesin 10 Ml Udc (200mg/10ml)) 20 ml PO Q4H PRN PRN PRN Reason: COUGH Hydralazine HCl (Hydralazine 20 Mg/Ml Vial) 10 mg IV Q4H PRN PRN; Protocol PRN Reason: SBP > 160 Sodium Chloride () 250 mls @ 15 mls/hr IV .[id number] PRN PRN Reason: Additional IVPB Infusion Sodium Chloride () 250 mls @ 15 mls/hr IV .[id number] PRN PRN Reason: Saline Flush Ceftriaxone Sodium (Rocephin) 1 gm in 50 mls @ 100 mls/hr IV Q24H [facility] Azithromycin 500 mg/ Dextrose 255 mls @ 250 mls/hr IV Q24H [facility] Melatonin (Melatonin 3 Mg Tablet) 3 mg PO QHS PRN PRN PRN Reason: INSOMNIA Memantine (Memantine Hydrochloride 10 Mg Tablet) 10 mg PO BID [facility] Last Admin: 04/17/23 08:31 Dose: 10 mg Mirtazapine (Mirtazapine 15 Mg Tablet) 7.5 mg PO QHS [facility] Last Admin: 04/16/23 22:30 Dose: 7.5 mg Nutritional Formula (Lactose Free) (Ensure Plus High Protein 120 Ml Liquid) 120ml PO 4X/DAY [facility] Last Admin: 04/17/23 13:58 Dose: 120 ml Ondansetron HCl (Ondansetron 4 Mg/2 Ml Vial) 4 mg IV Q8H PRN PRN PRN Reason: NAUSEA/VOMITING Pramipexole Dihydrochloride (Pramipexole Di-Hcl 0.5 Mg Tablet) 0.5 mg PO QHS [facility] Last Admin: 04/16/23 22:31 Dose: 0.5 mg Prochlorperazine Edisylate (Prochlorperazine 10 Mg/2 Ml Vial) 5 mg IV Q4H PRN PRN PRN Reason: Breakthrough nausea/vomiting Propranolol HCl (Propranolol 40 Mg Tablet) 40 mg PO 0600 [facility] Last Admin: 04/17/23 04:09 Dose: Not Given Propranolol HCl (Propranolol 10 Mg Tablet) 20 mg PO 1200,1700 [facility] Last Admin: 04/17/23 12:48 Dose: [...] Score 4-10 Charges/Coding Visit Charges Inpatient E&M: 81952 Subs Hosp L2 04/17/23 1554 <Electronically signed by Darinel Carlos MD> Cosigner Signature (if applicable): CC: ~ Signed [facility] Work Phone: 1(373) 713-372611-03-2023 History and physical note Author Karon Nunes [facility] April 16, 2023 10:33pm Note Date/Time April 16, 2023 7 :37pm [facility] Medical Records Department [address] [place] [address] H&P Exam - Hospitalist 04/16/231935 MR#: [id number] Acct: [id number] Name: SAPNA BULLARD Rep #:[id number] : 1940 83 From: Karon Nunes MD PCP: Dr. Nicci Lemus MD Status:ADM I N Location: [facility] LU277-4 HPI - General General Date of Admission: 04/16/23 Date of Service: 04/16/23 Chief Complaint: Confusion, weakness, debility. HPI Narrative The patient is an 83 y/o F w/ PMHx: Essential tremor, Allergic rhinitis, GERD, Chronic normocytic anemia/Fe deficiency anemia, Anxiety and Depression, Dementiaunclear type with unclear behavioral disturbance history, Former tobacco use whopresents to the [facility] ED on 04/16/23 with history of altered [...] as well as azithromycin and IV Rocephin. [facility] Medical History (Updated 04/16/23 @ 22:30 by [...] details: PT frequency: 1-2 times per week herrera/scientology: Spiritism seatbelt use: always ROS Review of Systems [...] 80.3 H, Lymph % (Auto) 10.8 L, [place] % (Auto) 8.0, Eos % (Auto) 0.1, [...] Sl. Cloudy, Urine pH 7.0, Ur Specific Reeders 1.010, Urine Protein 15 H, Urine Glucose [...] history, Former tobacco use whopresents to the [facility] ED on 04/16/23 with history of altered [...] 16 minutes. Charges/Coding Visit Charges Inpatient E&M: 48705 Init Hosp L3 Procedures Hospitalists Procedures: 32986 Advncd Care Plan 30 Min 04/16/232232 <Electronically signed by Karon Nunes MD> Cosigner Signature (if applicable): CC: Dr. Karon Nunes MD; Dr. Nicci Lemus MD~ Signed [facility] Work Phone: 1([phone]) 439-902811-02-2023 Discharge summary Author Nicholas Noel [facility] April 16, 2023 9:08pm Note Date/Time April 16, 2023 7 :09pm [facility] Medical Records Department [address] [place] [address] Emergency Department Summary 04/16/23 MR#: [id number] Acct: [id number] Name: SAPNA BULLARD Rep #:[id number] : 1940 83 From: Nicholas Cohen DO PCP: Dr. Nicci Lemus MD Status:ADM I N Location: [place] [address] HPI History of Present Illness Chief Complaint: [...] or short of breath. She complainsof dysuria. [facility] Medical History Acid reflux Acute UTI Anemia [...] details: PT frequency: 1-2 times per week herrera/scientology: Spiritism seatbelt use: always ROS ROS ED Constitutional [...] 80.3 H Lymph % (Auto) 10.8 L [place] % (Auto) 8.0 Eos % (Auto) 0.1 [...] Sl. Cloudy Urine pH 7.0 Ur Specific Reeders 1.010 Urine Protein 15 H Urine Glucose [...] your Primary Care Provider. Call [facility] ([phone]) or report to the closest Emergency Room. Call 911 if necessary. 04/16/232107 <Electronically signed by Nicholas Cohen DO> Cosigner Signature (if applicable): CC: Dr. Nicci Lemus MD ~ Signed [facility] Work Phone: 1([phone]) 403-895009-03-2022 Hospital Discharge instructions Additional Instructions Recommend repeat basic metabolic panel in 3 to 5 days to assess BUN and creatinine [facility] Work Phone: Consult note Author Tanya Cha [facility] April 23, 2023 1:32pm Note Date/Time April 23, 2023 1 :32pm [facility] Medical Records Department [address] [place] [address] Counseling Note - Pharmacy 04/23/23 1332 MR#: [id number] Acct: [id number] Name: SAPNA BULLARD Rep #:[id number] : 1940 83 From: Tanya Cha PCP: Dr. Nicci Lemus MD Status:DIS I N Y Location: [place] [address] [place] Med Reconciliation Pharmacy Service has performed discharge medication reconciliation for this patient upon transfer to [place] The patient's discharge medication list was reviewed [...] Signature (if applicable): Date CC: ~ Signed [facility] Work Phone: Discharge summary Author John Mounited [facility] April 23, 2023 11:48am Note Date/Time April 23, 2023 1 1:38am [facility] Medical Records Department [address] [place] [address] Instructions for Home/Discharge Instructions 04/23/23 1138 MR#: [id number] Acct: [id number] Name: SAPNA BULLARD Rep #:[id number] : 1940 83 From: John Johnston DO [...] Up: Lalo Palm DO [Med Staff - Package Delivery Driver] - Within 1 Month Nicci Lemus MD [Primary Care Provider] - Disposition Disposition (needs filled in before D/C Order can be placed): Assisted Living 04/23/23 1148<Electronically signed by John Johnston DO>John Johnston DO CC: Dr. Karon Nunes MD; Dr. Nicci Lemus MD; Dr. Pravin Cruz MD; Dr. Darinel Carlos MD ~ Signed [facility] Work Phone: Discharge summary Author Felicia [facility] Note Date/Time February 19, 2025 12:27pm [facility] Medical Records Department [address] [place] [address] Instructions for Home/Discharge Instructions 02/19/25 1226 MR#: [id number] Acct: [id number] Name: SAPNA BULLARD Rep #:[id number] : 1940 85 From: Felicia Paniagua MD [...] MD; Dr. Liudmila Morin MD ~ Signed [facility] Work Phone: Evaluation note* Diagnosis Onset Date Resolution Status Cognitive decline acute Essential tremor chronic GERD (gastroesophageal reflux disease) chronic Low back pain chronic Acute hypokalemia acute Acute UTI acute Dehydration acute Encephalopathy acute Fall acute Rhabdomyolysis acute Essential tremor chronic [facility] Work Phone: Evaluation note* Diagnosis Onset [...] infection acut e Vitamin D deficiency acute [facility] Work Phone: Evaluation note* Diagnosis Onset Date Resolution Status Essential tremor chronic Acute hypokalemia resolved Dehydration resolved Encephalopathy resolved Allergic rhinitis acute Debility acute Essential tremor acute Insomnia acute Iron deficiency anemia acute Osteoporosis acute Restless leg syndrome acute Vitamin D deficiency acute Encephalopathy resolved Hypokalemia resolved Rhabdomyolysis resolved Urinary tract infection reso lved Dementia chronic Fatigue chronic [facility] Work Phone: Evaluation note* Diagnosis Onset Date Resolution Status Anxiety chronic Vitamin D deficiency chronic Urinary tract infection none active UTI (urinary tract infection) acute [facility] Work Phone: Evaluation note* Diagnosis Onset Date Resolution Status UTI (urinary tract infection) resolved Anxiety chronic Vitamin D deficiency chronic [facility] Work Phone: Evaluation note* Diagnosis Onset Date Resolution Status Anxiety chronic Vitamin D deficiency chronic Urinary tract infection none active UTI (urinary tract infection) resolved [facility] Work Phone: History and physical note Author Liudmila Morin [facility] Note Date/Time February 14, 2025 3:22pm [facility] Medical Records Department [address] [place] [address] H&P Exam - Hospitalist 02/14/25 1511 MR#: [id number] Acct: [id number] Name: SAPNA BULLARD Rep #:[id number] : 1940 85 From: Liudmila Morin MD PCP: Dr. Genevieve Wu MD Status:A DM IN Location: MS3 [id number] HPI - General General Date of Admission: 02/14/25 Date of Service: 02/14/25 Chief Complaint: Altered mental status, weakness HPI Narrative SAPNA BULLARD, is a 85-year-old female history of GERD, dementia, essential tremor,restless leg syndrome who presented to [facility] ED 02/14/2025 from [facility] for confusion, weakness, stool and urinary [...] up. Unable to obtain any further history [facility] Medical History (Updated 02/14/25 @ 15:21 by [...] Unknown History gram-2.25 kcal/mL oral liquid (Boost [facility]) propranolol 20 mg tablet 20 mg [...] details: PT frequency: 1-2 times per week herrera/scientology: Spiritism seatbelt use: always ROS ROS Narrative Unable [...] (Auto) 74.1 H, Lymph % (Auto)11.8 L, [place] % (Auto) 12.2 H, Eos % (Auto) [...] Clarity Clear, Urine pH 6.0, Ur Specific [place] 1.015, Urine Protein Negative, Urine Glucose (UA) [...] pneumonia. 2. Suggestion of COPD. Reading Location: [facility] Assessment & Plan Assessment/Plan (1) Community acquired [...] Morin MD Charges/Coding Visit Charges Inpatient E&M: 03416 Init Hosp L2 02/14/25 1522 <Electronically signed by Liudmila Morin MD> Cosigner Signature (if applicable): CC: Dr. Genevieve Wu MD; Dr. Liudmila Morin MD~ Signed [facility] Work Phone: Reason for referral (narrative)No reason for referral information availableWPremier [facility] Work Phone: Reason for Referral Status Reason Specialty Diagnoses / Procedures Referred By Contact Referred To Contact Authorized Radiology Diagnoses Other closed displaced fracture of distal end of left humerus, initial encounter Procedures CT ELBOW LEFT WO CONTRAST Gerson Adamson MD [address] [facility] [address] [place] [id number] Assessments Diagnosis Other closed displaced fracture of [...] Date/ Time Name of Medical Power of Game Producer annette bullard December 10, 2021 8:22pm Living Will Yes December 10, 2021 8:22pm Power of Game Producer Yes December 10 8:22pm Advance Directive Response Recorded Date/ Time Name of Medical Power of Game Producer Annette Bullard December 11, 2021 1:38am Living Will Yes December 11, 2021 1:38am Power of Game Producer Yes December 11 1:38am Advance Directive Response Recorded Date/ Time Name of Medical Power of Game Producer Annette Bullard December 11, 2021 1:38am Name of Medical Power of Game Producer Annette Bullard December 13, 2021 4:16pm Living Will Yes December 17, 2021 5 :14pm Power of Game Producer No December 17, 2021 5:14pm Advance Directive Response Recorded Date/ Time Name of Medical Power of Game Producer Annette Bullard December 11, 2021 1:38am Name of Medical Power of Game Producer Annette Bullard December 13, 2021 4:16pm Name of Medical Power of Game Producer son February 15, 2022 1:17pm Living Will Yes February 15 1:17pm Power of Game Producer Yes February 15, 2022 1:17pm Advance Directive Response Recorded Date/ Time Name of Medical Power of Game Producer Annette Bullard April 16, 2023 8:33pm Living Will Yes April 16 8:33pm Power of Game Producer Yes April 16, 2023 8:33pm Advance Directive Response Recorded Date/ Time Living Will Yes April 16 9:33pm Do you have a Healthcare Power of Game Producer? Yes April 16, 2023 9:33pm Advance Directive Response Recorded Date/ Time Do you have a Healthcare Power of Game Producer? Yes February 14, 2025 3:37pm Name of Medical Power of Game Producer thaddeus bullard son February 14, 2025 3:37pm Chief Complaint and [...] M FU July 19, 2024 9 :51am [facility] July 5:00am J98.4 Other [...] M FU July 19, 2024 9 :51am [facility] July 5:00am J98.4 Other disorders of lung July 162024 5:50pm [facility] August 29, 2024 5:0 0am Lung Nodule September 08, 2024 11: 20am LAB[facility] October 03, 2024 5:[address] (Self) October 05, 2024 9:0 0am [facility] October 31, 2024 4:0 0am CHEST PAIN November 08, 2024 8:58a m Chief Complaint Admit Date [facility] July 5:00am J98.4 Other disorders of lung July 162024 5:50pm [facility] August 29, 2024 5:0 0am Lung Nodule September 08, 2024 11: 20am LABWORK October 03, 2024 5:[address] (Self) October 05, 2024 9:0 0am [facility] October 31, 2024 4:0 0am [...] CT (Self) October 05, 2024 9:0 0am [facility] October 31, 2024 4:0 0am [...] CT (Self) October 05, 2024 9:0 0am [facility] October 31, 2024 4:0 0am [...] CT (Self) October 05, 2024 9:0 0am [facility] October 31, 2024 4:0 0am [...] NEW CONCERN October 27, 2024 5:30p m [facility] October 31, 2024 4:0 0am [...] NEW CONCERN October 27, 2024 5:30p m [facility] October 31, 2024 4:0 0am [...] 5:00 am PNEUMONIA [facility] 3:11[facility] Reason for Visit Admit Date Dementia November 29, 2024 10:0 5am Essential tremor November 29, 2024 10:0 5am Restless leg syndrome November 29, 2024 10 :05am Vitamin D deficiency November 29, 2024 10: 05am Abnormal chest CT December 07, 2024 9:10 am Community acquired pneumonia February 142024 3:11pm Chief Complaint Admit Date NEW CONCERN October 27, 2024 5:30p m [facility] October 31, 2024 4:0 0am [...] section and content) DATE CREATED AUTHOR 07/07/2020 [facility] DATE CREATED AUTHOR AUTHOR'S ORGANIZ ATION 12/16/2022 [facility] ([place]) DATE CREATED AUTHOR AUTHOR'S ORGANIZ ATION 02/03/2025 [facility] DATE CREATED AUTHOR AUTHOR'S ORGANIZ ATION 03/03/2025 [facility] Goals (unrecognized section and content) Goals [...] Provider, Referr ing Provider Active Elliott Grigsby FAMILY PRACTICE DOCTOR, FAMILY PRACTICE DOCTOR-C Attending Provider Active Team Status: Active Member [...] Lalo Palm DO Primary Care Provider Active MIKIE Downey Attending Provider Active Team Status: Inactive Member Role Status Dates Dr. Nicholas Cohen DO Emergency Provider Active Dr. Nicci Lemus MD Primary Care Provider Active Dr. Karon Nunes MD Admit Provider, Other Provider Active Dr. Darinel Carlos MD Other Provider Active Dr. John Johntson DO Attending Provider Active Dr. Pravin Cruz [...] 2024 End: July 04, 2024 Barbara Castro NP FAMILY PRACTICE DOCTOR-C Attending Provider Active Start: July 04, 2024 [...] 08, 2024 End: September 08, 2024 Dr. Wililan Palm DO Attending Provider Active S tart: [...] 2024 End: November 21, 2024 Barbara Castro FAMILY PRACTICE DOCTOR, FAMILY PRACTICE DOCTOR-C Attending Provider Active Start: November 21, 2024 [...] Inactive Member Role/Relationship Status Dates Dr. Genevieve uW MD Primary Care Provider Active Start: October 27, 2024 End: October 27, 2024 Barbara Castro NP FAMILY PRACTICE DOCTOR-C Attending Provider Active Start: October 27, 2024 [...] 2024 End: October 27, 2024 Barbara Castro FAMILY PRACTICE DOCTOR, FAMILY PRACTICE DOCTOR-C Attending Provider Active Start: October 27, 2024 [...] End: November 21, 2024 Barbara Castro NP, FAMILY PRACTICE DOCTOR-C Attending Provider Active Start: November 21, 2024 [...] Start: February 14, 2025 Dr. Arya Gannon DO Emergency Provider [...] End: February 19, 2025 Dr. Arya Gannon DO Emergency Provider [...] Start: February 18, 2025 Dr. Arya Gannon DO Emergency Provider Activ e Start: February 18, [...] BE BASED ON THE PRIMARY CLINICAL RECORDS. [facility]. provides no warranty or guarantee of the accuracy or completeness of information in this document.
--- OUTSIDE RECORDS SUMMARY | 2025-03-07 05:57 | XMS RPT_ITS | CCD ---
Author Organization [facility] Care Team Providers Care Outdoor Adventure Instructor Name Role Phone Unavailable Primary Care Provider [...] Provider Dr. Vish Cook Attending Provider Seb REGISTERED MASSAGE THERAPIST, REGISTERED MASSAGE THERAPISTRobbin Gonzalez Attending Provider Dr. Nicholas Cohen Emergency Provider [phone] Dr. Nicci Lemus Primary Care Provider Dr. Karon Nunes Admit Provider Dr. Karon Nunes Other Provider Dr. Darinel Carlos Attending Provider Dr. Darinel Carlos Other Provider Dr. Pravin Cruz Attending Provider Dr. Pravin Cruz Other Provider Dr. John Johnston Attending Provider Dr. John Johnston Other Provider HOFSTETTER CHISEL MORTISER OPERATOR-C, DUNCAN M Unavailable LESLY SÁNCHEZ, RACHID Justin [...] Crouch MD Attending Provider Jazmin SÁNCHEZ, Dr. Valeljo Primary Care Provider Dr. Willian Palm DO Referring Provider Dr. Vish Cook MD Attending Provider Jazmin SÁNCHEZ, Dr. Vallejo Primary Care Provider Genevieve Wu MD Attending Provider Unavailkali Wu MD, Dr. Vallejo Referring Provider [phone] Jaden REGISTERED MASSAGE THERAPIST-C, Idalia Hilton Attending Provider Jazmin SÁNCHEZ, Dr. Vallejo Primary Care Provider Genevieve Wu MD Attending Provider Unavailkali Castro REGISTERED MASSAGE THERAPIST-CBarbara Attending Provider Jazmin SÁNCHEZ, Dr. Vallejo Primary Care Provider Jazmin SÁNCHEZ, Dr. Vallejo Referring Provider [phone] Matthew REGISTERED MASSAGE THERAPIST-C, Attending Provider Dr. Willian Palm DO Attending [...] Dr. Sharon Crouch MD Attending Provider [phone] Dr. Willian Palm DO Attending Provider [phone] Dr. Willian Palm DO Referring Provider [phone] Jazmin SÁNCHEZ, Dr. Vallejo Referring Provider Joyce SÁNCHEZ, Dr. Wahl Attending Provider Jaden PACHECO-CIdalia Attending Provider [facility] Dr. Arya RINCON Emergency Provider Mikel [...] Unavailable Koram, Felicia Park Attending Unavailable Liudmila oMrin Consulting Unavailable Liudmila Morin Admitting Unavailable Oleghe, [...] Attending Unavailable Oleghe, Efewongbe Primary Care Unavailable [facility] Primary [facility] Unavailable Oleghe OLS, Efewongbe Attending Unavailabl e Oleghe OLS, Efewongbe Attending Unavailabl e Oleghe, Efewongbe Primary Care Unavailable Oleghe, Efewongbe Attending Unavailable Oleghe, Efewongbe Primary Care Unavailable Matthew PACHECO, Attending Unavailable Oleghe, Efewongbe Primary Care Unavailable Liudmila Morin Attending Unavailable [facility] Primary Care Unavailable Oleghe OLS, Efewongbe Attending Unavailabl e Villagran, Achintya Admitting Unavailable [facility] Primary Care Unavailable Willian Palm [...] Care Unavailable Hilaria Villagran Attending Unavailable Cindyton REGISTERED MASSAGE THERAPISTBarbara Attending Unavailable Oleghe, Efewongbe Primary Care Unavailable Matthew REGISTERED MASSAGE THERAPIST, Attending Unavailable Oleghe, Efewongbe Primary Care Unavailable [...] docusate sodium 50 mg / sylvia osides, shelter 8.6 mg oral tablet (20 sources) Start: [...] ( 0.06 %) nasal spray ; 2 [place] up to three times daily as needed prn allergic rhinitis for 30 days Quantity: 15 {Milliliter} Refills: 11 Ordered: 13-Nov-2022 CAMDEN Thurman Start: 07-Apr-2022 End: 13-Nov-2022 Status: Inactive Comments: Medication taken as needed. Start: 05-08-2021 End: 07-10-2022 Start: 05-08-2021 End: 07-10-2022 Ipratropium [place] 42 mcg ( 0.06 %) spray,non-aerosol Discontinued 2 NMA INTRANASAL THREE TIMES A DAY as needed for allergy symptoms 29 06May 08, 2021 1:00am July 10, 2022 12:25pm administer into each nostril Start: 05-08-2021 End: 07-10-2022 take 1 spray(s) nasal route three times daily Ipratropium [place] Discontinued 2 SPRAY INTRANASAL THREE TIMES A [...] Start: 30-Jun-2022 Nut Tx, Lact-Reduced, Iron (Boost [facility]) 0.09-2.25 gram-kcal/mL liquid (9 sources) Start: 07-19-2024 Nut Tx, Lact-R educed, Iron (Boost [facility]) 0.09-2.25 gram-kcal/mL liquid Active 120 mL PO [...] %) nasal spray aerosol ; 2 sprays [place] every 12 hours as needed for rhinitis [...] mc g/actuation nasal spray,suspension ; 1 spray [place] daily as needed for allergic rhinitis for [...] 10 m g oral tablet (20 sources) Q-nmfjgn-J-aspartate Receptor Antagonist Start: 02-11-2022 End: 01-20-2024 Start: [...] mouth three times daily Sod Phos Di, Plumas-K Phos Plumas (Z-Iwxo-Yjjdvlx) 250 mg tablet Discontinued 2 TABLET PO [...] Xa Inhibitor Start: 01-01-2018 End: 10-14-2018 sennosides, shelter 8.6 mg oral tablet (20 sources) Start: [...] 1:00am July 12, 2024 1:25pm Moved to [facility] 10. Comment on above: This prescription ex [...] to further discuss the symptoms with the aqueduct and reservoir keeper.). You should call our office if you [...] Profile (BMP )on 02-23-2025 BUN Normal 4-19 [facility] Comment on above: Result Comment: Canc elled via OM: Order cancelled - Patient discharged Performed By: #### L 500.2500, L100.0100 ####[facility] [address] [facility] [address] BUN/CRE Normal 10-20 [facility] Comment on above: Result Comment: Canc elled via OM: Order cancelled - Patient discharged Performed By: #### L 500.2500, L100.0100 ####[facility] [address] [place], [address] Calcium Normal 7.6-11.0 [facility] Comment on above: Result Comment: Canc elled via OM: Order cancelled - Patient discharged Performed By: #### L 500.2500, L100.0100 ####[facility] [address] [place], [address] CL Normal 98-108 [facility] Comment on above: Result Comment: Canc elled via OM: Order cancelled - Patient discharged Performed By: #### L 500.2500, L100.0100 ####[facility] [address] [place], [address] CO2 Normal 21.0-32.0 [facility] Comment on above: Result Comment: Canc elled via OM: Order cancelled - Patient discharged Performed By: #### L 500.2500, L100.0100 ####[facility] [address] [place], [address] CREAT,SERUM Normal 0.70-1.20 [facility] Comment on above: Result Comment: Canc elled via OM: Order cancelled - Patient discharged Performed By: #### L 500.2500, L100.0100 ####[facility] [address] [place], [address] eGFR Normal >60 [facility] Comment on above: Result Comment: Canc elled via OM: Order cancelled - Patient discharged Performed By: #### L 500.2500, L100.0100 ####[facility] [address] [place], [address] GAP Normal 5-15 [facility] Comment on above: Result Comment: Canc elled via OM: Order cancelled - Patient discharged Performed By: #### L 500.2500, L100.0100 ####[facility] [address] [place], [address] GLU Normal 70-99 [facility] Comment on above: Result Comment: Canc elled via OM: Order cancelled - Patient discharged Performed By: #### L 500.2500, L100.0100 ####[facility] [address] [place], [address] Potassium Normal 3.3-5.1 [facility] Comment on above: Result Comment: Canc elled via OM: Order cancelled - Patient discharged Performed By: #### L 500.2500, L100.0100 ####[facility] [address] [place], [address] Basic Metabolic Profile (BMP) Normal 133-145 [facility] Comment on above: Result Comment: Canc elled via OM: Order cancelled - Patient discharged Performed By: #### L 500.2500, L100.0100 ####[facility] [address] [place], [address] CBC W/Diff, Automatedon 09- Absolute Neut Normal 2.0-7.7 [facility] Comment on above: Result Comment: Canc elled via OM: Order cancelled - Patient discharged Performed By: #### L 500.2500, L100.0100 ####[facility] [address] [place], [address] HCT Normal 37-47 [facility] Comment on above: Result Comment: Canc elled via OM: Order cancelled - Patient discharged Performed By: #### L 500.2500, L100.0100 ####[facility] [address] [place], [address] HGB Normal 12.0-15.0 [facility] Comment on above: Result Comment: Canc elled via OM: Order cancelled - Patient discharged Performed By: #### L 500.2500, L100.0100 ####[facility] [address] [place], [address] MCH Normal 27.0-32.0 [facility] Comment on above: Result Comment: Canc elled via OM: Order cancelled - Patient discharged Performed By: #### L 500.2500, L100.0100 ####[facility] [address] [place], [address] MCHC Normal 32-36 [facility] Comment on above: Result Comment: Canc elled via OM: Order cancelled - Patient discharged Performed By: #### L 500.2500, L100.0100 ####[facility] [address] [place], [address] MCV Normal 81-99 [facility] Comment on above: Result Comment: Canc elled via OM: Order cancelled - Patient discharged Performed By: #### L 500.2500, L100.0100 ####[facility] [address] [place], [address] NEUT% Normal 47-70 [facility] Comment on above: Result Comment: Canc elled via OM: Order cancelled - Patient discharged Performed By: #### L 500.2500, L100.0100 ####[facility] [address] [place], [address] PLT Normal 150-450 [facility] Comment on above: Result Comment: Canc elled via OM: Order cancelled - Patient discharged Performed By: #### L 500.2500, L100.0100 ####[facility] [address] [place], [address] RBC Normal 4.2-5.4 [facility] Comment on above: Result Comment: Canc elled via OM: Order cancelled - Patient discharged Performed By: #### L 500.2500, L100.0100 ####[facility] [address] [place], [address] RDW CV Normal 11.6-14.6 [facility] Comment on above: Result Comment: Canc elled via OM: Order cancelled - Patient discharged Performed By: #### L 500.2500, L100.0100 ####[facility] [address] [place], [address] RDW SD Normal 35.1-43.9 [facility] Comment on above: Result Comment: Canc elled via OM: Order cancelled - Patient discharged Performed By: #### L 500.2500, L100.0100 ####[facility] [address] [place], [address] WBC Normal 4.4-11.0 [facility] Comment on above: Result Comment: Canc elled via OM: Order cancelled - Patient discharged Performed By: #### L 500.2500, L100.0100 ####[facility] [address] [place], [address] Basic Metabolic Profile (BMP )on 02-22-2025 BUN Normal 4-19 [facility] Comment on above: Result Comment: Canc elled via OM: Order cancelled - Patient discharged Performed By: #### L 100.0100, L500.2500 ####[facility] [address] [place], [address] BUN/CRE Normal 10-20 [facility] Comment on above: Result Comment: Canc elled via OM: Order cancelled - Patient discharged Performed By: #### L 100.0100, L500.2500 ####[facility] [address] [place], [address] Calcium Normal 7.6-11.0 [facility] Comment on above: Result Comment: Canc elled via OM: Order cancelled - Patient discharged Performed By: #### L 100.0100, L500.2500 ####[facility] [address] [place], [address] CL Normal 98-108 [facility] Comment on above: Result Comment: Canc elled via OM: Order cancelled - Patient discharged Performed By: #### L 100.0100, L500.2500 ####[facility] [address] [place], [address] CO2 Normal 21.0-32.0 [facility] Comment on above: Result Comment: Canc elled via OM: Order cancelled - Patient discharged Performed By: #### L 100.0100, L500.2500 ####[facility] [address] [place], [address] CREAT,SERUM Normal 0.70-1.20 [facility] Comment on above: Result Comment: Canc elled via OM: Order cancelled - Patient discharged Performed By: #### L 100.0100, L500.2500 ####[facility] [address] [place], [address] eGFR Normal >60 [facility] Comment on above: Result Comment: Canc elled via OM: Order cancelled - Patient discharged Performed By: #### L 100.0100, L500.2500 ####[facility] [address] [place], [address] GAP Normal 5-15 [facility] Comment on above: Result Comment: Canc elled via OM: Order cancelled - Patient discharged Performed By: #### L 100.0100, L500.2500 ####[facility] [address] [place], [address] GLU Normal 70-99 [facility] Comment on above: Result Comment: Canc elled via OM: Order cancelled - Patient discharged Performed By: #### L 100.0100, L500.2500 ####[facility] [address] [place], [address] Potassium Normal 3.3-5.1 [facility] Comment on above: Result Comment: Canc elled via OM: Order cancelled - Patient discharged Performed By: #### L 100.0100, L500.2500 ####[facility] [address] [place], [address] Basic Metabolic Profile (BMP) Normal 133-145 [facility] Comment on above: Result Comment: Canc elled via OM: Order cancelled - Patient discharged Performed By: #### L 100.0100, L500.2500 ####[facility] [address] [place], [address] CBC W/Diff, Automatedon 09-1 0-2024 Absolute Neut Normal 2.0-7.7 [facility] Comment on above: Result Comment: Canc elled via OM: Order cancelled - Patient discharged Performed By: #### L 100.0100, L500.2500 ####[facility] [address] [place], [address] HCT Normal 37-47 [facility] Comment on above: Result Comment: Canc elled via OM: Order cancelled - Patient discharged Performed By: #### L 100.0100, L500.2500 ####[facility] [address] [place], [address] HGB Normal 12.0-15.0 [facility] Comment on above: Result Comment: Canc elled via OM: Order cancelled - Patient discharged Performed By: #### L 100.0100, L500.2500 ####[facility] [address] [place], [address] MCH Normal 27.0-32.0 [facility] Comment on above: Result Comment: Canc elled via OM: Order cancelled - Patient discharged Performed By: #### L 100.0100, L500.2500 ####[facility] [address] [place], [address] MCHC Normal 32-36 [facility] Comment on above: Result Comment: Canc elled via OM: Order cancelled - Patient discharged Performed By: #### L 100.0100, L500.2500 ####[facility] [address] [place], [address] MCV Normal 81-99 [facility] Comment on above: Result Comment: Canc elled via OM: Order cancelled - Patient discharged Performed By: #### L 100.0100, L500.2500 ####[facility] [address] [place], [address] NEUT% Normal 47-70 [facility] Comment on above: Result Comment: Canc elled via OM: Order cancelled - Patient discharged Performed By: #### L 100.0100, L500.2500 ####[facility] [address] [place], [address] PLT Normal 150-450 [facility] Comment on above: Result Comment: Canc elled via OM: Order cancelled - Patient discharged Performed By: #### L 100.0100, L500.2500 ####[facility] [address] [place], [address] RBC Normal 4.2-5.4 [facility] Comment on above: Result Comment: Canc elled via OM: Order cancelled - Patient discharged Performed By: #### L 100.0100, L500.2500 ####[facility] [address] [place], [address] RDW CV Normal 11.6-14.6 [facility] Comment on above: Result Comment: Canc elled via OM: Order cancelled - Patient discharged Performed By: #### L 100.0100, L500.2500 ####[facility] [address] [place], [address] RDW SD Normal 35.1-43.9 [facility] Comment on above: Result Comment: Canc elled via OM: Order cancelled - Patient discharged Performed By: #### L 100.0100, L500.2500 ####[facility] [address] [place], [address] WBC Normal 4.4-11.0 [facility] Comment on above: Result Comment: Canc elled via OM: Order cancelled - Patient discharged Performed By: #### L 100.0100, L500.2500 ####[facility] [address] [place], [address] Basic Metabolic Profile (BMP )on 02-21-2025 BUN Normal 4-19 [facility] Comment on above: Result Comment: Canc elled via OM: Order cancelled - Patient discharged Performed By: #### L 500.2500, L100.0100 ####[facility] [address] [place], [address] BUN/CRE Normal 10-20 [facility] Comment on above: Result Comment: Canc elled via OM: Order cancelled - Patient discharged Performed By: #### L 500.2500, L100.0100 ####[facility] [address] [place], [address] Calcium Normal 7.6-11.0 [facility] Comment on above: Result Comment: Canc elled via OM: Order cancelled - Patient discharged Performed By: #### L 500.2500, L100.0100 ####[facility] [address] [place], [address] CL Normal 98-108 [facility] Comment on above: Result Comment: Canc elled via OM: Order cancelled - Patient discharged Performed By: #### L 500.2500, L100.0100 ####[facility] [address] [place], [address] CO2 Normal 21.0-32.0 [facility] Comment on above: Result Comment: Canc elled via OM: Order cancelled - Patient discharged Performed By: #### L 500.2500, L100.0100 ####[facility] [address] [place], [address] CREAT,SERUM Normal 0.70-1.20 [facility] Comment on above: Result Comment: Canc elled via OM: Order cancelled - Patient discharged Performed By: #### L 500.2500, L100.0100 ####[facility] [address] [place], [address] eGFR Normal >60 [facility] Comment on above: Result Comment: Canc elled via OM: Order cancelled - Patient discharged Performed By: #### L 500.2500, L100.0100 ####[facility] [address] [place], [address] GAP Normal 5-15 [facility] Comment on above: Result Comment: Canc elled via OM: Order cancelled - Patient discharged Performed By: #### L 500.2500, L100.0100 ####[facility] [address] [place], [address] GLU Normal 70-99 [facility] Comment on above: Result Comment: Canc elled via OM: Order cancelled - Patient discharged Performed By: #### L 500.2500, L100.0100 ####[facility] [address] [place], [address] Potassium Normal 3.3-5.1 [facility] Comment on above: Result Comment: Canc elled via OM: Order cancelled - Patient discharged Performed By: #### L 500.2500, L100.0100 ####[facility] [address] [place], [address] Basic Metabolic Profile (BMP) Normal 133-145 [facility] Comment on above: Result Comment: Canc elled via OM: Order cancelled - Patient discharged Performed By: #### L 500.2500, L100.0100 ####[facility] [address] [place], [address] CBC W/Diff, Automatedon 09-0 9-2024 Absolute Neut Normal 2.0-7.7 [facility] Comment on above: Result Comment: Canc elled via OM: Order cancelled - Patient discharged Performed By: #### L 500.2500, L100.0100 ####[facility] [address] [place], [address] HCT Normal 37-47 [facility] Comment on above: Result Comment: Canc elled via OM: Order cancelled - Patient discharged Performed By: #### L 500.2500, L100.0100 ####[facility] [address] [place], [address] HGB Normal 12.0-15.0 [facility] Comment on above: Result Comment: Canc elled via OM: Order cancelled - Patient discharged Performed By: #### L 500.2500, L100.0100 ####[facility] [address] [place], [address] MCH Normal 27.0-32.0 [facility] Comment on above: Result Comment: Canc elled via OM: Order cancelled - Patient discharged Performed By: #### L 500.2500, L100.0100 ####[facility] [address] [place], [address] MCHC Normal 32-36 [facility] Comment on above: Result Comment: Canc elled via OM: Order cancelled - Patient discharged Performed By: #### L 500.2500, L100.0100 ####[facility] [address] [place], [address] MCV Normal 81-99 [facility] Comment on above: Result Comment: Canc elled via OM: Order cancelled - Patient discharged Performed By: #### L 500.2500, L100.0100 ####[facility] [address] [place], [address] NEUT% Normal 47-70 [facility] Comment on above: Result Comment: Canc elled via OM: Order cancelled - Patient discharged Performed By: #### L 500.2500, L100.0100 ####[facility] [address] [place], [address] PLT Normal 150-450 [facility] Comment on above: Result Comment: Canc elled via OM: Order cancelled - Patient discharged Performed By: #### L 500.2500, L100.0100 ####[facility] [address] [place], [address] RBC Normal 4.2-5.4 [facility] Comment on above: Result Comment: Canc elled via OM: Order cancelled - Patient discharged Performed By: #### L 500.2500, L100.0100 ####[facility] [address] [place], [address] RDW CV Normal 11.6-14.6 [facility] Comment on above: Result Comment: Canc elled via OM: Order cancelled - Patient discharged Performed By: #### L 500.2500, L100.0100 ####[facility] [address] [place], [address] RDW SD Normal 35.1-43.9 [facility] Comment on above: Result Comment: Canc elled via OM: Order cancelled - Patient discharged Performed By: #### L 500.2500, L100.0100 ####[facility] [address] [place], [address] WBC Normal 4.4-11.0 [facility] Comment on above: Result Comment: Canc elled via OM: Order cancelled - Patient discharged Performed By: #### L 500.2500, L100.0100 ####[facility] [address] [place], [address] Basic Metabolic Profile (BMP )on 02-20-2025 BUN Normal 4-19 [facility] Comment on above: Result Comment: Canc elled via OM: Order cancelled - Patient discharged Performed By: #### L 500.2500, L100.0100 ####[facility] [address] [place], [address] BUN/CRE Normal 10-20 [facility] Comment on above: Result Comment: Canc elled via OM: Order cancelled - Patient discharged Performed By: #### L 500.2500, L100.0100 ####[facility] [address] [place], [address] Calcium Normal 7.6-11.0 [facility] Comment on above: Result Comment: Canc elled via OM: Order cancelled - Patient discharged Performed By: #### L 500.2500, L100.0100 ####[facility] [address] [place], [address] CL Normal 98-108 [facility] Comment on above: Result Comment: Canc elled via OM: Order cancelled - Patient discharged Performed By: #### L 500.2500, L100.0100 ####[facility] [address] [place], [address] CO2 Normal 21.0-32.0 [facility] Comment on above: Result Comment: Canc elled via OM: Order cancelled - Patient discharged Performed By: #### L 500.2500, L100.0100 ####[facility] [address] [place], [address] CREAT,SERUM Normal 0.70-1.20 [facility] Comment on above: Result Comment: Canc elled via OM: Order cancelled - Patient discharged Performed By: #### L 500.2500, L100.0100 ####[facility] [address] [place], [address] eGFR Normal >60 [facility] Comment on above: Result Comment: Canc elled via OM: Order cancelled - Patient discharged Performed By: #### L 500.2500, L100.0100 ####[facility] [address] [place], [address] GAP Normal 5-15 [facility] Comment on above: Result Comment: Canc elled via OM: Order cancelled - Patient discharged Performed By: #### L 500.2500, L100.0100 ####[facility] [address] [place], [address] GLU Normal 70-99 [facility] Comment on above: Result Comment: Canc elled via OM: Order cancelled - Patient discharged Performed By: #### L 500.2500, L100.0100 ####[facility] [address] [place], [address] Potassium Normal 3.3-5.1 [facility] Comment on above: Result Comment: Canc elled via OM: Order cancelled - Patient discharged Performed By: #### L 500.2500, L100.0100 ####[facility] [address] [place], [address] Basic Metabolic Profile (BMP) Normal 133-145 [facility] Comment on above: Result Comment: Canc elled via OM: Order cancelled - Patient discharged Performed By: #### L 500.2500, L100.0100 ####[facility] [address] [place], [address] CBC W/Diff, Automatedon 09-0 -2024 Absolute Neut Normal 2.0-7.7 [facility] Comment on above: Result Comment: Canc elled via OM: Order cancelled - Patient discharged Performed By: #### L 500.2500, L100.0100 ####[facility] [address] [place], [address] HCT Normal 37-47 [facility] Comment on above: Result Comment: Canc elled via OM: Order cancelled - Patient discharged Performed By: #### L 500.2500, L100.0100 ####[facility] [address] [place], [address] HGB Normal 12.0-15.0 [facility] Comment on above: Result Comment: Canc elled via OM: Order cancelled - Patient discharged Performed By: #### L 500.2500, L100.0100 ####[facility] [address] [place], [address] MCH Normal 27.0-32.0 [facility] Comment on above: Result Comment: Canc elled via OM: Order cancelled - Patient discharged Performed By: #### L 500.2500, L100.0100 ####[facility] [address] [place], [address] MCHC Normal 32-36 [facility] Comment on above: Result Comment: Canc elled via OM: Order cancelled - Patient discharged Performed By: #### L 500.2500, L100.0100 ####[facility] [address] [place], [address] MCV Normal 81-99 [facility] Comment on above: Result Comment: Canc elled via OM: Order cancelled - Patient discharged Performed By: #### L 500.2500, L100.0100 ####[facility] [address] [place], [address] NEUT% Normal 47-70 [facility] Comment on above: Result Comment: Canc elled via OM: Order cancelled - Patient discharged Performed By: #### L 500.2500, L100.0100 ####[facility] [address] [place], [address] PLT Normal 150-450 [facility] Comment on above: Result Comment: Canc elled via OM: Order cancelled - Patient discharged Performed By: #### L 500.2500, L100.0100 ####[facility] [address] [place], [address] RBC Normal 4.2-5.4 [facility] Comment on above: Result Comment: Canc elled via OM: Order cancelled - Patient discharged Performed By: #### L 500.2500, L100.0100 ####[facility] [address] [place], [address] RDW CV Normal 11.6-14.6 [facility] Comment on above: Result Comment: Canc elled via OM: Order cancelled - Patient discharged Performed By: #### L 500.2500, L100.0100 ####[facility] [address] [place], [address] RDW SD Normal 35.1-43.9 [facility] Comment on above: Result Comment: Canc elled via OM: Order cancelled - Patient discharged Performed By: #### L 500.2500, L100.0100 ####[facility] [address] [place], [address] WBC Normal 4.4-11.0 [facility] Comment on above: Result Comment: Canc elled via OM: Order cancelled - Patient discharged Performed By: #### L 500.2500, L100.0100 ####[facility] [address] [place], [address] Absolute lymphocyte countOrd ered By: Felicia Paniagua on 02-19-2025 Lymphocytes Auto (Unsp spec) [#/Vol] 1.51 10*3/uL 0.83-4.51 [facility] Anion gap in Serum or Plasma Ordered By: Felicia Paniagua on 02-19-2025 Anion gap [Moles/Vol] 11 mmol/L 5-15 [facility] Automated lymphocyte count a s percentage of total leukocytesOrdered By: Felicia Paniagua on 02-19-2025 Lymphocytes/100 WBC Auto (Unsp spec) 16.5 % Low 19-41 [facility] BUN/creatinine ratioOrdered By: Felicia Paniagua on 02-19-2025 Urea nitrogen/Creatinine [Mass ratio] 26.7 mg/mg High 10-20 [facility] Basic Metabolic Profile (BMP )on 02-19-2025 BUN/CRE 26.7 RATIO High 10-20 [facility] Comment on above: Performed By: #### L 500.2500, L100.0100 ####[facility] [address] [place], [address] Calcium [Mass/Vol] 9.1 mg/dL Normal 7.6-11.0 [facility] Comment on above: Performed By: #### L 500.2500, L100.0100 ####[facility] [address] [place], [address] Chloride [Moles/Vol] 106 mmol/L Normal 98-108 [facility] Comment on above: Performed By: #### L 500.2500, L100.0100 ####[facility] [address] [place], [address] CO2 [Moles/Vol] 23.0 mmol/L Normal 21.0-32.0 [facility] Comment on above: Performed By: #### L 500.2500, L100.0100 ####[facility] [address] [place], [address] Creatinine [Mass/Vol] 0.78 mg/dL Normal 0.70-1.20 [facility] Comment on above: Performed By: #### L 500.2500, L100.0100 ####[facility] [address] [place], [address] ECRCL 45.54 ml/min Low 50-250 [facility] Comment on above: Performed By: #### L 500.2500, L100.0100 ####[facility] [address] [place], [address] GAP 11 Normal 5-15 [facility] Comment on above: Performed By: #### L 500.2500, L100.0100 ####[facility] [address] [place], [address] GFR/1.73 sq M.predicted among non-blacks MDRD (S/P/Bld) [Vol rate/Area] 75 mL/min/{1.73_m2} Normal >60 [facility] Comment on above: Result Comment: mL/m in/1.73m2 CKD-EPI Creatinine Equation (2020) Performed By: #### L 500.2500, L100.0100 ####[facility] [address] [place], [address] Glucose [Mass/Vol] 102 mg/dL High 70-99 [facility] Comment on above: Performed By: #### L 500.2500, L100.0100 ####[facility] [address] [place], [address] Potassium [Moles/Vol] 3.9 mmol/L Normal 3.3-5.1 [facility] Comment on above: Performed By: #### L 500.2500, L100.0100 ####[facility] [address] [place], [address] Sodium [Moles/Vol] 139 mmol/L Normal 133-145 [facility] Comment on above: Performed By: #### L 500.2500, L100.0100 ####[facility] [address] [place], [address] Urea nitrogen [Mass/Vol] 21 mg/dL High 4-19 [facility] Comment on above: Performed By: #### L 500.2500, L100.0100 ####[facility] [address] [place], [address] Basophil percentageOrdered B y: Felicia Paniagua on 02-19-2025 Basophils/100 WBC (Bld) 0.3 % 0-1 [facility] CBC W/Diff, Automatedon Absolute Lymph 1.51 X10 3/uL Normal 0.83-4.51 [facility] Comment on above: Performed By: #### L 500.2500, L100.0100 ####[facility] [address] [place], [address] Absolute Neut 6.3 X10 3/uL Normal 2.0-7.7 [facility] Comment on above: Performed By: #### L 500.2500, L100.0100 ####[facility] [address] [place], [address] Basophils/100 WBC (Bld) 0.3 % Normal 0-1 [facility] Comment on above: Performed By: #### L 500.2500, L100.0100 ####[facility] [address] [place], [address] Eosinophils/100 WBC (Bld) 2.2 % Normal 0-5 [facility] Comment on above: Performed By: #### L 500.2500, L100.0100 ####[facility] [address] [place], [address] Erythrocyte distribution width (RBC) [Ratio] 15.8 % High 11.6-14.6 [facility] Comment on above: Performed By: #### L 500.2500, L100.0100 ####[facility] [address] [place], [address] Hematocrit (Bld) [Volume fraction] 35.0 % Low 37-47 [facility] Comment on above: Performed By: #### L 500.2500, L100.0100 ####[facility] [address] [place], [address] Hemoglobin (Bld) [Mass/Vol] 11.0 g/dL Low 12.0-15.0 [facility] Comment on above: Performed By: #### L 500.2500, L100.0100 ####[facility] [address] [place], [address] IG% 0.700 Normal 0.0-0.9 [facility] Comment on above: Result Comment: IG% - Immature Granulocytes (promyelocytes, myelocytes andmetamyelocytes) > 1% indicates that a LEFT SHIFT is Present. Performed By: #### L 500.2500, L100.0100 ####[facility] [address] [place], [address] Lymphocytes/100 WBC (Bld) 16.5 % Low 19-41 [facility] Comment on above: Performed By: #### L 500.2500, L100.0100 ####[facility] [address] [place], [address] MCH (RBC) [Entitic mass] 28.2 pg Normal 27.0-32.0 [facility] Comment on above: Performed By: #### L 500.2500, L100.0100 ####[facility] [address] [place], [address] MCHC (RBC) [Mass/Vol] 31.4 g/dL Low 32-36 [facility] Comment on above: Performed By: #### L 500.2500, L100.0100 ####[facility] [address] [place], [address] MCV (RBC) [Entitic vol] 89.7 fL Normal 81-99 [facility] Comment on above: Performed By: #### L 500.2500, L100.0100 ####[facility] [address] [place], [address] Monocytes/100 WBC (Bld) 11.2 % High 0-10 [facility] Comment on above: Performed By: #### L 500.2500, L100.0100 ####[facility] [address] [place], [address] Neutrophils/100 WBC (Bld) 69.1 % Normal 47-70 [facility] Comment on above: Performed By: #### L 500.2500, L100.0100 ####[facility] [address] [place], [address] Nucleated RBC (Bld) [#/Vol] 0 10*3/uL Normal 0-5 [facility] Comment on above: Performed By: #### L 500.2500, L100.0100 ####[facility] [address] [place], [address] Platelet mean volume (Bld) [Entitic vol] 8.8 fL Normal 6.2-12.0 [facility] Comment on above: Performed By: #### L 500.2500, L100.0100 ####[facility] [address] [place], [address] Platelets (Bld) [#/Vol] 312 10*3/uL Normal 150-450 [facility] Comment on above: Performed By: #### L 500.2500, L100.0100 ####[facility] [address] [place], [address] RBC (Bld) [#/Vol] 3.90 10*6/uL Low 4.2-5.4 [facility] Comment on above: Performed By: #### L 500.2500, L100.0100 ####[facility] [address] [place], [address] RDW SD 51.9 fl High 35.1-43.9 [facility] Comment on above: Performed By: #### L 500.2500, L100.0100 ####[facility] [address] [place], [address] WBC (Bld) [#/Vol] 9.1 10*3/uL Normal 4.4-11.0 [facility] Comment on above: Performed By: #### L 500.2500, L100.0100 ####[facility] [address] [place], [address] Carbon dioxide, total [Moles /volume] in Central venous bloodOrdered By: Felicia Paniagua on 02-19-2025 CO2 [Moles/Vol] 23.0 mmol/L 21.0-32.0 [facility] Chloride assayOrdered By: Jacquelyn Paniagua on 02-19-2025 Chloride [Moles/Vol] 106 mmol/L 98-108 [facility] Discharge Instructionon Discharge Instruction Normal [facility] Eosinophil percentageOrdered By: Felicia Paniagua on 02-19-2025 Eosinophils/100 WBC (Bld) 2.2 % 0-5 [facility] Erythrocyte distribution wid th ratioOrdered By: Felicia Paniagua on 02-19-2025 Erythrocyte distribution width (RBC) [Ratio] 15.8 % High 11.6-14.6 [facility] Erythrocyte distribution wid th standard deviationOrdered By: Felicia Paniagua on 02-19-2025 Erythrocyte distribution width (RBC) [Ratio] 51.9 fl High 35.1-43.9 [facility] Glomerular filtration rate ( GFR) estimation/1.73 sq m using serum, plasma, or whole bOrdered By: Felicia Paniagua on 02-19-2025 GFR/1.73 sq M.predicted among non-blacks MDRD (S/P/Bld) [Vol rate/Area] 75 mL/min/{1.73_m2} >60 [facility] Hematocrit Auto (Bld) [Volum e fraction]Ordered By: Felicia Paniagua on 02-19-2025 Hematocrit (Bld) [Volume fraction] 35.0 % Low 37-47 [facility] Hemoglobin measurementOrdere d By: Felicia Paniagua on 02-19-2025 Hemoglobin (Bld) [Mass/Vol] 11.0 g/dL Low 12.0-15.0 [facility] Immature granulocytes/100 WB C Auto (Bld)Ordered By: Felicia Paniagua 02-19-2025 Immature granulocytes/100 WBC (Bld) 0.700 % 0.0-0.9 [facility] MCV (mean corpuscular volume ) determinationOrdered By: Felicia Paniagua 02-19-2025 MCV (RBC) [Entitic vol] 89.7 fL 81-99 [facility] Mean corpuscular hemoglobin (MCH) determinationOrdered By: Felicia Paniagua 02-19-2025 MCH (RBC) [Entitic mass] 28.2 pg 27.0-32.0 [facility] Monocyte percentageOrdered B y: Felicia Paniagua on 02-19-2025 Monocytes/100 WBC (Bld) 11.2 % High 0-10 [facility] Neutrophil percentageOrdered By: Felicia Paniagua on 02-19-2025 Neutrophils/100 WBC (Bld) 69.1 % 47-70 [facility] Platelet countOrdered By: Jacquelyn Paniagua on 02-19-2025 Platelets (Bld) [#/Vol] 312 10*3/uL 150-450 [facility] Potassium measurement (mass/ volume)Ordered By: Felicia Paniagua on 02-19-2025 Potassium (Unsp spec) [Mass/Vol] 3.9 mmol/L 3.3-5.1 [facility] RBC Auto (Bld) [#/Vol]Ordere d By: Felicia Paniagua on 02-19-2025 RBC (Bld) [#/Vol] 3.90 10*6/uL Low 4.2-5.4 [facility] Serum creatinine measurement (mass/volume)Ordered By: Felicia Paniagua on 02-19-2025 Creatinine [Mass/Vol] 0.78 mg/dL 0.70-1.20 [facility] Serum glucose measurement (m ass/volume)Ordered By: Felicia Paniagua on 02-19-2025 Glucose [Mass/Vol] 102 mg/dL High 70-99 [facility] Serum or plasma calcium candice urement (mass/volume)Ordered By: Felicia Paniagua on 02-19-2025 Calcium [Mass/Vol] 9.1 mg/dL 7.6-11.0 [facility] Serum or plasma urea nitroge n measurement (mass/volume)Ordered By: Felicia Paniagua on 02-19-2025 Urea nitrogen [Mass/Vol] 21 mg/dL High 4-19 [facility] Sodium levelOrdered By: Felicia Paniagua on 02-19-2025 Sodium [Moles/Vol] 139 mmol/L 133-145 [facility] White blood cell (WBC) count Ordered By: Felicia Paniagua on 02-19-2025 WBC (Bld) [#/Vol] 9.1 10*3/uL 4.4-11.0 [facility] Basic Metabolic Profile (BMP )on 02-18-2025 BUN/CRE 23.6 RATIO High 10-20 [facility] Comment on above: Order Comment: OZIEL NT IS VERY AGGRESSIVE,PAN SILVA RN ASKED THAT WAKE HER. SPOKE TO JAY RN, SHE WILL CALL ONCE PATIENTIS AWAKE AND WE ARE ABLE TO TRY HER Performed By: #### L 500.2500, L100.0100 ####[facility] [address] [place], [address] Calcium [Mass/Vol] 9.0 mg/dL Normal 7.6-11.0 [facility] Comment on above: Order Comment: PATIE NT IS VERY AGGRESSIVE,PAN SILVA RN ASKED THAT [place] WAKE HER. SPOKE TO JAY RN, SHE WILL CALL ONCE PATIENTIS AWAKE AND WE ARE ABLE TO TRY HER Performed By: #### L 500.2500, L100.0100 ####[facility] [address] [place], [address] Chloride [Moles/Vol] 105 mmol/L Normal 98-108 [facility] Comment on above: Order Comment: PATIE NT IS VERY AGGRESSIVE,PAN SILVA RN ASKED THAT [place] WAKE HER. SPOKE TO JAY RN, SHE WILL CALL ONCE PATIENTIS AWAKE AND WE ARE ABLE TO TRY HER Performed By: #### L 500.2500, L100.0100 ####[facility] [address] [place], [address] CO2 [Moles/Vol] 19.1 mmol/L Low 21.0-32.0 [facility] Comment on above: Order Comment: PATIE NT IS VERY AGGRESSIVE,PAN SILVA RN ASKED THAT [place] WAKE HER. SPOKE TO JAY RN, SHE WILL CALL ONCE PATIENTIS AWAKE AND WE ARE ABLE TO TRY HER Performed By: #### L 500.2500, L100.0100 ####[facility] [address] [place], [address] Creatinine [Mass/Vol] 0.77 mg/dL Normal 0.70-1.20 [facility] Comment on above: Order Comment: PATIE NT IS VERY AGGRESSIVE,PAN SILVA RN ASKED THAT [place] WAKE HER. SPOKE TO JAY RN, SHE WILL CALL ONCE PATIENTIS AWAKE AND WE ARE ABLE TO TRY HER Performed By: #### L 500.2500, L100.0100 ####[facility] [address] [place], [address] ECRCL 45.54 ml/min Low 50-250 [facility] Comment on above: Order Comment: PATIE NT IS VERY AGGRESSIVE,PAN SILVA RN ASKED THAT [place] WAKE HER. SPOKE TO JAY RN, SHE WILL CALL ONCE PATIENTIS AWAKE AND WE ARE ABLE TO TRY HER Performed By: #### L 500.2500, L100.0100 ####[facility] [address] [place], [address] GAP 13 Normal 5-15 [facility] Comment on above: Order Comment: PATIE NT IS VERY AGGRESSIVE,PAN SILVA RN ASKED THAT [place] WAKE HER. SPOKE TO JAY RN, SHE WILL CALL ONCE PATIENTIS AWAKE AND WE ARE ABLE TO TRY HER Performed By: #### L 500.2500, L100.0100 ####[facility] [address] [place], [address] GFR/1.73 sq M.predicted among non-blacks MDRD (S/P/Bld) [Vol rate/Area] 76 mL/min/{1.73_m2} Normal >60 [facility] Comment on above: Order Comment: PATIE NT IS VERY AGGRESSIVE,PAN SILVA RN ASKED THAT [place] WAKE HER. SPOKE TO JAY RN, SHE WILL CALL ONCE PATIENTIS AWAKE AND WE ARE ABLE TO TRY HER Result Comment: mL/m in/1.73m2 CKD-EPI Creatinine Equation (2020) Performed By: #### L 500.2500, L100.0100 ####[facility] [address] [place], [address] Glucose [Mass/Vol] 141 mg/dL High 70-99 [facility] Comment on above: Order Comment: PATIE NT IS VERY AGGRESSIVE,PAN SILVA RN ASKED THAT [place] WA[place] HER. SPOKE TO JAY RN, SHE WILL CALL ONCE PATIENTIS AWAKE AND WE ARE ABLE TO TRY HER Performed By: #### L 500.2500, L100.0100 ####[facility] [address] [place], [address] Potassium [Moles/Vol] 4.0 mmol/L Normal 3.3-5.1 [facility] Comment on above: Order Comment: PATIE NT IS VERY AGGRESSIVE,PAN SADDLE STITCH OPERATOR ASKED THAT [place] WAKE HER. SPOKE TO JAY RN, SHE WILL CALL ONCE PATIENTIS AWAKE AND WE ARE ABLE TO TRY HER Performed By: #### L 500.2500, L100.0100 ####[facility] [address] [place], [place], [phone] Sodium [Moles/Vol] 137 mmol/L Normal 133-145 [facility] Comment on above: Order Comment: PATIE NT IS VERY AGGRESSIVE,PAN SILVA RN ASKED THAT [place] HER. SPOKE TO JAY RN, SHE WILL CALL ONCE PATIENTIS AWAKE AND WE ARE ABLE TO TRY HER Performed By: #### L 500.2500, L100.0100 ####[facility] [address] [place], [phone] Urea nitrogen [Mass/Vol] 18 mg/dL Normal 4-19 [facility] Comment on above: Order Comment: PATIE NT IS VERY AGGRESSIVE,PAN SILVA RN ASKED THAT [place] HER. SPOKE TO JAY RN, SHE WILL CALL ONCE PATIENTIS AWAKE AND WE ARE ABLE TO TRY HER Performed By: #### L 500.2500, L100.0100 ####[facility] [address] [place], [place], [phone] CBC W/Diff, Automatedon 09-0 6-2024 Absolute Lymph 1.13 X10 3/uL Normal 0.83-4.51 [facility] Comment on above: Order Comment: PATIE NT IS VERY AGGRESSIVE,PAN SILVA RN ASKED THAT [place] WAKE HER. SPOKE TO JAY RN, SHE WILL CALL ONCE PATIENTIS AWAKE AND WE ARE ABLE TO TRY HER Performed By: #### L 500.2500, L100.0100 ####[facility] [address] [place], [address] Absolute Neut 5.5 X10 3/uL Normal 2.0-7.7 [facility] Comment on above: Order Comment: PATIE NT IS VERY AGGRESSIVE,PAN SILVA RN ASKED THAT [place] WAKE HER. SPOKE TO JAY RN, SHE WILL CALL ONCE PATIENTIS AWAKE AND WE ARE ABLE TO TRY HER Performed By: #### L 500.2500, L100.0100 ####[facility] [address] [place], [address] Basophils/100 WBC (Bld) 0.4 % Normal 0-1 [facility] Comment on above: Order Comment: PATIE NT IS VERY AGGRESSIVE,PAN SILVA RN ASKED THAT [place]KE HER. SPOKE TO JAY RN, SHE WILL CALL ONCE PATIENTIS AWAKE AND WE ARE ABLE TO TRY HER Performed By: #### L 500.2500, L100.0100 ####[facility] [address] [place], [address] Eosinophils/100 WBC (Bld) 2.0 % Normal 0-5 [facility] Comment on above: Order Comment: PATIE NT IS VERY AGGRESSIVE,PAN SILVA RN ASKED THAT [place] WAKE HER. SPOKE TO JAY RN, SHE WILL CALL ONCE PATIENTIS AWAKE AND WE ARE ABLE TO TRY HER Performed By: #### L 500.2500, L100.0100 ####[facility] [address] [place], [address] Erythrocyte distribution width (RBC) [Ratio] 15.9 % High 11.6-14.6 [facility] Comment on above: Order Comment: PATIE NT IS VERY AGGRESSIVE,PAN SILVA RN ASKED THAT [place]KE HER. SPOKE TO JAY RN, SHE WILL CALL ONCE PATIENTIS AWAKE AND WE ARE ABLE TO TRY HER Performed By: #### L 500.2500, L100.0100 ####[facility] [address] [place], [address] Hematocrit (Bld) [Volume fraction] 37.0 % Normal 37-47 [facility] Comment on above: Order Comment: PATIE NT IS VERY AGGRESSIVE,PAN SILVA RN ASKED THAT [place] HER. SPOKE TO JAY RN, SHE WILL CALL ONCE PATIENTIS AWAKE AND WE ARE ABLE TO TRY HER Performed By: #### L 500.2500, L100.0100 ####[facility] [address] [place], [address] Hemoglobin (Bld) [Mass/Vol] 11.7 g/dL Low 12.0-15.0 [facility] Comment on above: Order Comment: PATIE NT IS VERY AGGRESSIVE,PAN SILVA RN ASKED THAT [place] HER. SPOKE TO JAY RN, SHE WILL CALL ONCE PATIENTIS AWAKE AND WE ARE ABLE TO TRY HER Performed By: #### L 500.2500, L100.0100 ####[facility] [address] [place], [address] IG% 0.700 Normal 0.0-0.9 [facility] Comment on above: Order Comment: PATIE NT IS VERY AGGRESSIVE,PAN SILVA RN ASKED THAT [place] HER. SPOKE TO JAY RN, SHE WILL CALL ONCE PATIENTIS AWAKE AND WE ARE ABLE TO TRY HER Result Comment: IG% - Immature Granulocytes (promyelocytes, myelocytes andmetamyelocytes) > 1% indicates that a LEFT SHIFT is Present. Performed By: #### L 500.2500, L100.0100 ####[facility] [address] [place], [address] Lymphocytes/100 WBC (Bld) 14.7 % Low 19-41 [facility] Comment on above: Order Comment: PATIE NT IS VERY AGGRESSIVE,PAN SILVA RN ASKED THAT [place]KE HER. SPOKE TO JAY RN, SHE WILL CALL ONCE PATIENTIS AWAKE AND WE ARE ABLE TO TRY HER Performed By: #### L 500.2500, L100.0100 ####[facility] [address] [place], [address] MCH (RBC) [Entitic mass] 28.2 pg Normal 27.0-32.0 [facility] Comment on above: Order Comment: PATIE NT IS VERY AGGRESSIVE,PAN SILVA RN ASKED THAT [place] WAKE HER. SPOKE TO JAY RN, SHE WILL CALL ONCE PATIENTIS AWAKE AND WE ARE ABLE TO TRY HER Performed By: #### L 500.2500, L100.0100 ####[facility] [address] [place], [address] MCHC (RBC) [Mass/Vol] 31.6 g/dL Low 32-36 [facility] Comment on above: Order Comment: PATIE NT IS VERY AGGRESSIVE,PAN SILVA RN ASKED THAT [place] WAKE HER. SPOKE TO JAY RN, SHE WILL CALL ONCE PATIENTIS AWAKE AND WE ARE ABLE TO TRY HER Performed By: #### L 500.2500, L100.0100 ####[facility] [address] [place], [address] MCV (RBC) [Entitic vol] 89.2 fL Normal 81-99 [facility] Comment on above: Order Comment: PATIE NT IS VERY AGGRESSIVE,PAN SILVA RN ASKED THAT [place] WAKE HER. SPOKE TO JAY RN, SHE WILL CALL ONCE PATIENTIS AWAKE AND WE ARE ABLE TO TRY HER Performed By: #### L 500.2500, L100.0100 ####[facility] [address] [place], [address] Monocytes/100 WBC (Bld) 10.8 % High 0-10 [facility] Comment on above: Order Comment: PATIE NT IS VERY AGGRESSIVE,PAN SILVA RN ASKED THAT [place]KE HER. SPOKE TO JAY RN, SHE WILL CALL ONCE PATIENTIS AWAKE AND WE ARE ABLE TO TRY HER Performed By: #### L 500.2500, L100.0100 ####[facility] [address] [place], [address] Neutrophils/100 WBC (Bld) 71.4 % High 47-70 [facility] Comment on above: Order Comment: PATIE NT IS VERY AGGRESSIVE,PAN SILVA RN ASKED THAT [place]KE HER. SPOKE TO JAY RN, SHE WILL CALL ONCE PATIENTIS AWAKE AND WE ARE ABLE TO TRY HER Performed By: #### L 500.2500, L100.0100 ####[facility] [address] [place], [address] Nucleated RBC (Bld) [#/Vol] 0 10*3/uL Normal 0-5 [facility] Comment on above: Order Comment: PATIE NT IS VERY AGGRESSIVE,PAN SILVA RN ASKED THAT [place] WAKE HER. SPOKE TO JAY RN, SHE WILL CALL ONCE PATIENTIS AWAKE AND WE ARE ABLE TO TRY HER Performed By: #### L 500.2500, L100.0100 ####[facility] [address] [place], [address] Platelet mean volume (Bld) [Entitic vol] 8.7 fL Normal 6.2-12.0 [facility] Comment on above: Order Comment: PATIE NT IS VERY AGGRESSIVE,PAN SILVA RN ASKED THAT [place] WAKE HER. SPOKE TO JAY RN, SHE WILL CALL ONCE PATIENTIS AWAKE AND WE ARE ABLE TO TRY HER Performed By: #### L 500.2500, L100.0100 ####[facility] [address] [place], [address] Platelets (Bld) [#/Vol] 338 10*3/uL Normal 150-450 [facility] Comment on above: Order Comment: PATIE NT IS VERY AGGRESSIVE,PAN SILVA RN ASKED THAT [place] WAKE HER. SPOKE TO JAY RN, SHE WILL CALL ONCE PATIENTIS AWAKE AND WE ARE ABLE TO TRY HER Performed By: #### L 500.2500, L100.0100 ####[facility] [address] [place], [address] RBC (Bld) [#/Vol] 4.15 10*6/uL Low 4.2-5.4 [facility] Comment on above: Order Comment: PATIE NT IS VERY AGGRESSIVE,PAN SILVA RN ASKED THAT [place] WAKE HER. SPOKE TO JAY RN, SHE WILL CALL ONCE PATIENTIS AWAKE AND WE ARE ABLE TO TRY HER Performed By: #### L 500.2500, L100.0100 ####[facility] [address] [place], [address] RDW SD 52.6 fl High 35.1-43.9 [facility] Comment on above: Order Comment: PATIE NT IS VERY AGGRESSIVE,PAN SILVA RN ASKED THAT [place] WAKE HER. SPOKE TO JAY RN, SHE WILL CALL ONCE PATIENTIS AWAKE AND WE ARE ABLE TO TRY HER Performed By: #### L 500.2500, L100.0100 ####[facility] [address] [place], [address] WBC (Bld) [#/Vol] 7.7 10*3/uL Normal 4.4-11.0 [facility] Comment on above: Order Comment: PATIE NT IS VERY AGGRESSIVE,PAN SILVA RN ASKED THAT [place] WAKE HER. SPOKE TO JAY RN, SHE WILL CALL ONCE PATIENTIS AWAKE AND WE ARE ABLE TO TRY HER Performed By: #### L 500.2500, L100.0100 ####[facility] [address] [place], [address] Basic Metabolic Profile (BMP )on 02-17-2025 BUN/CRE 23.8 RATIO High 10-20 [facility] Comment on above: Performed By: #### L 100.0100, L500.2500 ####[facility] [address] [place], [address] Calcium [Mass/Vol] 9.1 mg/dL Normal 7.6-11.0 [facility] Comment on above: Performed By: #### L 100.0100, L500.2500 ####[facility] [address] [place], [address] Chloride [Moles/Vol] 108 mmol/L Normal 98-108 [facility] Comment on above: Performed By: #### L 100.0100, L500.2500 ####[facility] [address] [place], [address] CO2 [Moles/Vol] 21.0 mmol/L Normal 21.0-32.0 [facility] Comment on above: Performed By: #### L 100.0100, L500.2500 ####[facility] [address] [place], [address] Creatinine [Mass/Vol] 0.69 mg/dL Low 0.70-1.20 [facility] Comment on above: Performed By: #### L 100.0100, L500.2500 ####[facility] [address] [place], [address] ECRCL 45.54 ml/min Low 50-250 [facility] Comment on above: Performed By: #### L 100.0100, L500.2500 ####[facility] [address] [place], [address] GAP 11 Normal 5-15 [facility] Comment on above: Performed By: #### L 100.0100, L500.2500 ####[facility] [address] [place], [address] GFR/1.73 sq M.predicted among non-blacks MDRD (S/P/Bld) [Vol rate/Area] 86 mL/min/{1.73_m2} Normal >60 [facility] Comment on above: Result Comment: mL/m in/1.73m2 CKD-EPI Creatinine Equation (2020) Performed By: #### L 100.0100, L500.2500 ####[facility] [address] [place], [address] Glucose [Mass/Vol] 112 mg/dL High 70-99 [facility] Comment on above: Performed By: #### L 100.0100, L500.2500 ####[facility] [address] [place], [address] Potassium [Moles/Vol] 3.7 mmol/L Normal 3.3-5.1 [facility] Comment on above: Performed By: #### L 100.0100, L500.2500 ####[facility] [address] [place], [address] Sodium [Moles/Vol] 141 mmol/L Normal 133-145 [facility] Comment on above: Performed By: #### L 100.0100, L500.2500 ####[facility] [address] [place], [address] Urea nitrogen [Mass/Vol] 16 mg/dL Normal 4-19 [facility] Comment on above: Performed By: #### L 100.0100, L500.2500 ####[facility] [address] [place], [address] CBC W/Diff, Automatedon 09-0 5-2024 Absolute Lymph 1.55 X10 3/uL Normal 0.83-4.51 [facility] Comment on above: Performed By: #### L 100.0100, L500.2500 ####[facility] [address] [place], [address] Absolute Neut 4.6 X10 3/uL Normal 2.0-7.7 [facility] Comment on above: Performed By: #### L 100.0100, L500.2500 ####[facility] [address] [place], [address] Basophils/100 WBC (Bld) 0.4 % Normal 0-1 [facility] Comment on above: Performed By: #### L 100.0100, L500.2500 ####[facility] [address] [place], [address] Eosinophils/100 WBC (Bld) 3.1 % Normal 0-5 [facility] Comment on above: Performed By: #### L 100.0100, L500.2500 ####[facility] [address] [place], [address] Erythrocyte distribution width (RBC) [Ratio] 15.9 % High 11.6-14.6 [facility] Comment on above: Performed By: #### L 100.0100, L500.2500 ####[facility] [address] [place], [address] Hematocrit (Bld) [Volume fraction] 35.4 % Low 37-47 [facility] Comment on above: Performed By: #### L 100.0100, L500.2500 ####[facility] [address] [place], [address] Hemoglobin (Bld) [Mass/Vol] 11.3 g/dL Low 12.0-15.0 [facility] Comment on above: Performed By: #### L 100.0100, L500.2500 ####[facility] [address] [place], [address] IG% 0.500 Normal 0.0-0.9 [facility] Comment on above: Result Comment: IG% - Immature Granulocytes (promyelocytes, myelocytes andmetamyelocytes) > 1% indicates that a LEFT SHIFT is Present. Performed By: #### L 100.0100, L500.2500 ####[facility] [address] [place], [address] Lymphocytes/100 WBC (Bld) 21.0 % Normal 19-41 [facility] Comment on above: Performed By: #### L 100.0100, L500.2500 ####[facility] [address] [place], [address] MCH (RBC) [Entitic mass] 28.3 pg Normal 27.0-32.0 [facility] Comment on above: Performed By: #### L 100.0100, L500.2500 ####[facility] [address] [place], [address] MCHC (RBC) [Mass/Vol] 31.9 g/dL Low 32-36 [facility] Comment on above: Performed By: #### L 100.0100, L500.2500 ####[facility] [address] [place], [address] MCV (RBC) [Entitic vol] 88.7 fL Normal 81-99 [facility] Comment on above: Performed By: #### L 100.0100, L500.2500 ####[facility] [address] [place], [address] Monocytes/100 WBC (Bld) 13.3 % High 0-10 [facility] Comment on above: Performed By: #### L 100.0100, L500.2500 ####[facility] [address] [place], [address] Neutrophils/100 WBC (Bld) 61.7 % Normal 47-70 [facility] Comment on above: Performed By: #### L 100.0100, L500.2500 ####[facility] [address] [place], [address] Nucleated RBC (Bld) [#/Vol] 0 10*3/uL Normal 0-5 [facility] Comment on above: Performed By: #### L 100.0100, L500.2500 ####[facility] [address] [place], [address] Platelet mean volume (Bld) [Entitic vol] 9.1 fL Normal 6.2-12.0 [facility] Comment on above: Performed By: #### L 100.0100, L500.2500 ####[facility] [address] [place], [address] Platelets (Bld) [#/Vol] 316 10*3/uL Normal 150-450 [facility] Comment on above: Performed By: #### L 100.0100, L500.2500 ####[facility] [address] [place], [address] RBC (Bld) [#/Vol] 3.99 10*6/uL Low 4.2-5.4 [facility] Comment on above: Performed By: #### L 100.0100, L500.2500 ####[facility] [address] [place], [address] RDW SD 52.5 fl High 35.1-43.9 [facility] Comment on above: Performed By: #### L 100.0100, L500.2500 ####[facility] [address] [place], [address] WBC (Bld) [#/Vol] 7.4 10*3/uL Normal 4.4-11.0 [facility] Comment on above: Performed By: #### L 100.0100, L500.2500 ####[facility] [address] [place], [address] Basic Metabolic Profile (BMP )on 02-16-2025 BUN/CRE 23.8 RATIO High 10-20 [facility] Comment on above: Performed By: #### L 500.2500, L100.0100 ####[facility] [address] [place], [address] Calcium [Mass/Vol] 9.4 mg/dL Normal 7.6-11.0 [facility] Comment on above: Performed By: #### L 500.2500, L100.0100 ####[facility] [address] [place], [address] Chloride [Moles/Vol] 104 mmol/L Normal 98-108 [facility] Comment on above: Performed By: #### L 500.2500, L100.0100 ####[facility] [address] [place], [address] CO2 [Moles/Vol] 22.7 mmol/L Normal 21.0-32.0 [facility] Comment on above: Performed By: #### L 500.2500, L100.0100 ####[facility] [address] [place], [address] Creatinine [Mass/Vol] 0.88 mg/dL Normal 0.70-1.20 [facility] Comment on above: Performed By: #### L 500.2500, L100.0100 ####[facility] [address] [place], [address] ECRCL 41.40 ml/min Low 50-250 [facility] Comment on above: Performed By: #### L 500.2500, L100.0100 ####[facility] [address] [place], [address] GAP 13 Normal 5-15 [facility] Comment on above: Performed By: #### L 500.2500, L100.0100 ####[facility] [address] [place], [address] GFR/1.73 sq M.predicted among non-blacks MDRD (S/P/Bld) [Vol rate/Area] 65 mL/min/{1.73_m2} Normal >60 [facility] Comment on above: Result Comment: mL/m in/1.73m2 CKD-EPI Creatinine Equation (2020) Performed By: #### L 500.2500, L100.0100 ####[facility] [address] [place], [address] Glucose [Mass/Vol] 134 mg/dL High 70-99 [facility] Comment on above: Performed By: #### L 500.2500, L100.0100 ####[facility] [address] [place], [address] Potassium [Moles/Vol] 3.7 mmol/L Normal 3.3-5.1 [facility] Comment on above: Performed By: #### L 500.2500, L100.0100 ####[facility] [address] [place], [address] Sodium [Moles/Vol] 139 mmol/L Normal 133-145 [facility] Comment on above: Performed By: #### L 500.2500, L100.0100 ####[facility] [address] [place], [address] Urea nitrogen [Mass/Vol] 21 mg/dL High 4-19 [facility] Comment on above: Performed By: #### L 500.2500, L100.0100 ####[facility] [address] [place], [address] CBC W/Diff, Automatedon 09-0 4-2025 Absolute Lymph 1.16 X10 3/uL Normal 0.83-4.51 [facility] Comment on above: Performed By: #### L 500.2500, L100.0100 ####[facility] [address] [place], [address] Absolute Neut 5.3 X10 3/uL Normal 2.0-7.7 [facility] Comment on above: Performed By: #### L 500.2500, L100.0100 ####[facility] [address] [place], [address] Basophils/100 WBC (Bld) 0.3 % Normal 0-1 [facility] Comment on above: Performed By: #### L 500.2500, L100.0100 ####[facility] [address] [place], [address] Eosinophils/100 WBC (Bld) 2.3 % Normal 0-5 [facility] Comment on above: Performed By: #### L 500.2500, L100.0100 ####[facility] [address] [place], [address] Erythrocyte distribution width (RBC) [Ratio] 16.4 % High 11.6-14.6 [facility] Comment on above: Performed By: #### L 500.2500, L100.0100 ####[facility] [address] [place], [address] Hematocrit (Bld) [Volume fraction] 38.3 % Normal 37-47 [facility] Comment on above: Performed By: #### L 500.2500, L100.0100 ####[facility] [address] [place], [address] Hemoglobin (Bld) [Mass/Vol] 12.0 g/dL Normal 12.0-15.0 [facility] Comment on above: Performed By: #### L 500.2500, L100.0100 ####[facility] [address] [place], [address] IG% 0.600 Normal 0.0-0.9 [facility] Comment on above: Result Comment: IG% - Immature Granulocytes (promyelocytes, myelocytes andmetamyelocytes) > 1% indicates that a LEFT SHIFT is Present. Performed By: #### L 500.2500, L100.0100 ####[facility] [facility] [address] [place], [address] Lymphocytes/100 WBC (Bld) 14.9 % Low 19-41 [facility] Comment on above: Performed By: #### L 500.2500, L100.0100 ####[facility] [address] [place], [address] MCH (RBC) [Entitic mass] 28.1 pg Normal 27.0-32.0 [facility] Comment on above: Performed By: #### L 500.2500, L100.0100 ####[facility] [address] [place], [address] MCHC (RBC) [Mass/Vol] 31.3 g/dL Low 32-36 [facility] Comment on above: Performed By: #### L 500.2500, L100.0100 ####[facility] [address] [place], [address] MCV (RBC) [Entitic vol] 89.7 fL Normal 81-99 [facility] Comment on above: Performed By: #### L 500.2500, L100.0100 ####[facility] [address] [place], [address] Monocytes/100 WBC (Bld) 14.1 % High 0-10 [facility] Comment on above: Performed By: #### L 500.2500, L100.0100 ####[facility] [address] [place], [address] Neutrophils/100 WBC (Bld) 67.8 % Normal 47-70 [facility] Comment on above: Performed By: #### L 500.2500, L100.0100 ####[facility] [address] [place], [address] Nucleated RBC (Bld) [#/Vol] 0 10*3/uL Normal 0-5 [facility] Comment on above: Performed By: #### L 500.2500, L100.0100 ####[facility] [address] [place], [address] Platelet mean volume (Bld) [Entitic vol] 8.9 fL Normal 6.2-12.0 [facility] Comment on above: Performed By: #### L 500.2500, L100.0100 ####[facility] [address] [place], [address] Platelets (Bld) [#/Vol] 328 10*3/uL Normal 150-450 [facility] Comment on above: Performed By: #### L 500.2500, L100.0100 ####[facility] [address] [place], [address] RBC (Bld) [#/Vol] 4.27 10*6/uL Normal 4.2-5.4 [facility] Comment on above: Performed By: #### L 500.2500, L100.0100 ####[facility] [address] [place], [address] RDW SD 53.4 fl High 35.1-43.9 [facility] Comment on above: Performed By: #### L 500.2500, L100.0100 ####[facility] [address] [place], [address] WBC (Bld) [#/Vol] 7.8 10*3/uL Normal 4.4-11.0 [facility] Comment on above: Performed By: #### L 500.2500, L100.0100 ####[facility] [address] [place], [address] Basic Metabolic Profile (BMP )on 02-15-2025 BUN/CRE 17.5 RATIO Normal 10-20 [facility] Comment on above: Performed By: #### L 500.2500, L100.0100 ####[facility] [address] [place], [address] Calcium [Mass/Vol] 8.9 mg/dL Normal 7.6-11.0 [facility] Comment on above: Performed By: #### L 500.2500, L100.0100 ####[facility] [address] [place], [address] Chloride [Moles/Vol] 103 mmol/L Normal 98-108 [facility] Comment on above: Performed By: #### L 500.2500, L100.0100 ####[facility] [address] [place], [address] CO2 [Moles/Vol] 21.1 mmol/L Normal 21.0-32.0 [facility] Comment on above: Performed By: #### L 500.2500, L100.0100 ####[facility] [address] [place], [address] Creatinine [Mass/Vol] 0.94 mg/dL Normal 0.70-1.20 [facility] Comment on above: Performed By: #### L 500.2500, L100.0100 ####[facility] [address] [place], [address] ECRCL 38.76 ml/min Low 50-250 [facility] Comment on above: Performed By: #### L 500.2500, L100.0100 ####[facility] [address] [place], [address] GAP 13 Normal 5-15 [facility] Comment on above: Performed By: #### L 500.2500, L100.0100 ####[facility] [address] [place], [address] GFR/1.73 sq M.predicted among non-blacks MDRD (S/P/Bld) [Vol rate/Area] 60 mL/min/{1.73_m2} Normal >60 [facility] Comment on above: Result Comment: mL/m in/1.73m2 CKD-EPI Creatinine Equation (2020) Performed By: #### L 500.2500, L100.0100 ####[facility] [address] [place], [address] Glucose [Mass/Vol] 82 mg/dL Normal 70-99 [facility] Comment on above: Performed By: #### L 500.2500, L100.0100 ####[facility] [address] [place], [address] Potassium [Moles/Vol] 3.6 mmol/L Normal 3.3-5.1 [facility] Comment on above: Performed By: #### L 500.2500, L100.0100 ####[facility] [address] [place], [address] Sodium [Moles/Vol] 137 mmol/L Normal 133-145 [facility] Comment on above: Performed By: #### L 500.2500, L100.0100 ####[facility] [address] [place], [address] Urea nitrogen [Mass/Vol] 17 mg/dL Normal 4-19 [facility] Comment on above: Performed By: #### L 500.2500, L100.0100 ####[facility] [address] [place], [address] CBC W/Diff, Automatedon 09-0 3-5 Absolute Lymph 1.30 X10 3/uL Normal 0.83-4.51 [facility] Comment on above: Performed By: #### L 500.2500, L100.0100 ####[facility] [address] [place], [address] Absolute Neut 5.0 X10 3/uL Normal 2.0-7.7 [facility] Comment on above: Performed By: #### L 500.2500, L100.0100 ####[facility] [address] [place], [address] Basophils/100 WBC (Bld) 0.4 % Normal 0-1 [facility] Comment on above: Performed By: #### L 500.2500, L100.0100 ####[facility] [address] [place], [address] Eosinophils/100 WBC (Bld) 1.8 % Normal 0-5 [facility] Comment on above: Performed By: #### L 500.2500, L100.0100 ####[facility] [address] [place], [address] Erythrocyte distribution width (RBC) [Ratio] 16.4 % High 11.6-14.6 [facility] Comment on above: Performed By: #### L 500.2500, L100.0100 ####[facility] [address] [place], [address] Hematocrit (Bld) [Volume fraction] 36.3 % Low 37-47 [facility] Comment on above: Performed By: #### L 500.2500, L100.0100 ####[facility] [address] [place], [address] Hemoglobin (Bld) [Mass/Vol] 11.5 g/dL Low 12.0-15.0 [facility] Comment on above: Performed By: #### L 500.2500, L100.0100 ####[facility] [address] [place], [address] IG% 0.500 Normal 0.0-0.9 [facility] Comment on above: Result Comment: IG% - Immature Granulocytes (promyelocytes, myelocytes andmetamyelocytes) > 1% indicates that a LEFT SHIFT is Present. Performed By: #### L 500.2500, L100.0100 ####[facility] [address] [place], [address] Lymphocytes/100 WBC (Bld) 16.8 % Low 19-41 [facility] Comment on above: Performed By: #### L 500.2500, L100.0100 ####[facility] [address] [place], [address] MCH (RBC) [Entitic mass] 28.2 pg Normal 27.0-32.0 [facility] Comment on above: Performed By: #### L 500.2500, L100.0100 ####[facility] [address] [place], [address] MCHC (RBC) [Mass/Vol] 31.7 g/dL Low 32-36 [facility] Comment on above: Performed By: #### L 500.2500, L100.0100 ####[facility] [address] [place], [address] MCV (RBC) [Entitic vol] 89.0 fL Normal 81-99 [facility] Comment on above: Performed By: #### L 500.2500, L100.0100 ####[facility] [address] [place], [address] Monocytes/100 WBC (Bld) 16.6 % High 0-10 [facility] Comment on above: Performed By: #### L 500.2500, L100.0100 ####[facility] [address] [place], [address] Neutrophils/100 WBC (Bld) 63.9 % Normal 47-70 [facility] Comment on above: Performed By: #### L 500.2500, L100.0100 ####[facility] [address] [place], [address] Nucleated RBC (Bld) [#/Vol] 0 10*3/uL Normal 0-5 [facility] Comment on above: Performed By: #### L 500.2500, L100.0100 ####[facility] [address] [place], [address] Platelet mean volume (Bld) [Entitic vol] 8.6 fL Normal 6.2-12.0 [facility] Comment on above: Performed By: #### L 500.2500, L100.0100 ####[facility] [address] [place], [address] Platelets (Bld) [#/Vol] 279 10*3/uL Normal 150-450 [facility] Comment on above: Performed By: #### L 500.2500, L100.0100 ####[facility] [address] [place], [address] RBC (Bld) [#/Vol] 4.08 10*6/uL Low 4.2-5.4 [facility] Comment on above: Performed By: #### L 500.2500, L100.0100 ####[facility] [address] [place], [address] RDW SD 53.1 fl High 35.1-43.9 [facility] Comment on above: Performed By: #### L 500.2500, L100.0100 ####[facility] [address] [place], [place], [address] WBC (Bld) [#/Vol] 7.8 10*3/uL Normal 4.4-11.0 [facility] Comment on above: Performed By: #### L 500.2500, L100.0100 ####[facility] [address] [place], [place], [id number] Electrocardiogram reportOrde red By: Yunior Desai on 02-15-2025 EKG study [facility] Work Phone: 12 Lead EKGon 02-14-2025 12 Lead EKG Normal [facility] Absolute lymphocyte countOrd ered By: Arya Gannon on 02-14-2025 Lymphocytes Auto (Unsp spec) [#/Vol] 1.18 10*3/uL 0.83-4.51 [facility] Activated partial thrombopla stin time (aPTT) in platelet poor plasma by coagulation aOrdered By: Arya Gannon on 02-14-2025 aPTT Coag (PPP) [Time] 29.6 s 24.1-36.2 [facility] Anion gap in Serum or Plasma Ordered By: Arya Gannon on 02-14-2025 Anion gap [Moles/Vol] 12 mmol/L 5-15 [facility] Automated lymphocyte count a s percentage of total leukocytesOrdered By: Arya Gannon on 02-14-2025 Lymphocytes/100 WBC Auto (Unsp spec) 11.8 % Low 19-41 [facility] BUN/creatinine ratioOrdered By: Arya Gannon on 02-14-2025 Urea nitrogen/Creatinine [Mass ratio] 19.4 mg/mg 10-20 [facility] Basophil percentageOrdered B y: Arya Gannon on 02-14-2025 Basophils/100 WBC (Bld) 0.4 % 0-1 [facility] Bilirubin Test strip Ql (U)O rdered By: Arya Gannon on 02-14-2025 Bilirubin Ql (U) Negative Negative [facility] Bilirubin, totalOrdered By: Arya Gannon on 02-14-2025 Bilirubin [Mass/Vol] 0.56 mg/dL 0.00-1.30 [facility] CBC W/Diff, Automatedon Absolute Lymph 1.18 X10 3/uL Normal 0.83-4.51 [facility] Comment on above: Performed By: #### L 503.6005, L300.4310, L100.0100, L300.3900, L500.4050, L501.2450 ####[facility] [address] [place], [address] Absolute Neut 7.4 X10 3/uL Normal 2.0-7.7 [facility] Comment on above: Performed By: #### L 503.6005, L300.4310, L100.0100, L300.3900, L500.4050, L501.2450 ####[facility] [address] [place], [address] Basophils/100 WBC (Bld) 0.4 % Normal 0-1 [facility] Comment on above: Performed By: #### L 503.6005, L300.4310, L100.0100, L300.3900, L500.4050, L501.2450 ####[facility] [address] [place], [address] Eosinophils/100 WBC (Bld) 0.8 % Normal 0-5 [facility] Comment on above: Performed By: #### L 503.6005, L300.4310, L100.0100, L300.3900, L500.4050, L501.2450 ####[facility] [address] [place], [address] Erythrocyte distribution width (RBC) [Ratio] 16.3 % High 11.6-14.6 [facility] Comment on above: Performed By: #### L 503.6005, L300.4310, L100.0100, L300.3900, L500.4050, L501.2450 ####[facility] [address] [place], [address] Hematocrit (Bld) [Volume fraction] 35.8 % Low 37-47 [facility] Comment on above: Performed By: #### L 503.6005, L300.4310, L100.0100, L300.3900, L500.4050, L501.2450 ####[facility] [address] [place], [address] Hemoglobin (Bld) [Mass/Vol] 11.5 g/dL Low 12.0-15.0 [facility] Comment on above: Performed By: #### L 503.6005, L300.4310, L100.0100, L300.3900, L500.4050, L501.2450 ####[facility] [address] [place], [address] IG% 0.700 Normal 0.0-0.9 [facility] Comment on above: Result Comment: IG% - Immature Granulocytes (promyelocytes, myelocytes andmetamyelocytes) > 1% indicates that a LEFT SHIFT is Present. Performed By: #### L 503.6005, L300.4310, L100.0100, L300.3900, L500.4050, L501.2450 ####[facility] [address] [place], [address] Lymphocytes/100 WBC (Bld) 11.8 % Low 19-41 [facility] Comment on above: Performed By: #### L 503.6005, L300.4310, L100.0100, L300.3900, L500.4050, L501.2450 ####[facility] [address] [place], [address] MCH (RBC) [Entitic mass] 28.5 pg Normal 27.0-32.0 [facility] Comment on above: Performed By: #### L 503.6005, L300.4310, L100.0100, L300.3900, L500.4050, L501.2450 ####[facility] [address] [place], [address] MCHC (RBC) [Mass/Vol] 32.1 g/dL Normal 32-36 [facility] Comment on above: Performed By: #### L 503.6005, L300.4310, L100.0100, L300.3900, L500.4050, L501.2450 ####[facility] [address] [place], [address] MCV (RBC) [Entitic vol] 88.6 fL Normal 81-99 [facility] Comment on above: Performed By: #### L 503.6005, L300.4310, L100.0100, L300.3900, L500.4050, L501.2450 ####[facility] [address] [place], [address] Monocytes/100 WBC (Bld) 12.2 % High 0-10 [facility] Comment on above: Performed By: #### L 503.6005, L300.4310, L100.0100, L300.3900, L500.4050, L501.2450 ####[facility] [address] [place], [address] Neutrophils/100 WBC (Bld) 74.1 % High 47-70 [facility] Comment on above: Performed By: #### L 503.6005, L300.4310, L100.0100, L300.3900, L500.4050, L501.2450 ####[facility] [address] [place], [address] Nucleated RBC (Bld) [#/Vol] 0 10*3/uL Normal 0-5 [facility] Comment on above: Performed By: #### L 503.6005, L300.4310, L100.0100, L300.3900, L500.4050, L501.2450 ####[facility] [address] [place], [address] Platelet mean volume (Bld) [Entitic vol] 8.5 fL Normal 6.2-12.0 [facility] Comment on above: Performed By: #### L 503.6005, L300.4310, L100.0100, L300.3900, L500.4050, L501.2450 ####[facility] [address] [place], [address] Platelets (Bld) [#/Vol] 328 10*3/uL Normal 150-450 [facility] Comment on above: Performed By: #### L 503.6005, L300.4310, L100.0100, L300.3900, L500.4050, L501.2450 ####[facility] [address] [place], [address] RBC (Bld) [#/Vol] 4.04 10*6/uL Low 4.2-5.4 [facility] Comment on above: Performed By: #### L 503.6005, L300.4310, L100.0100, L300.3900, L500.4050, L501.2450 ####[facility] [address] [place], [address] RDW SD 52.9 fl High 35.1-43.9 [facility] Comment on above: Performed By: #### L 503.6005, L300.4310, L100.0100, L300.3900, L500.4050, L501.2450 ####[facility] [address] [place], [address] WBC (Bld) [#/Vol] 10.0 10*3/uL Normal 4.4-11.0 [facility] Comment on above: Performed By: #### L 503.6005, L300.4310, L100.0100, L300.3900, L500.4050, L501.2450 ####[facility] [address] [place], [address] Carbon dioxide, total [Moles /volume] in Central venous bloodOrdered By: Arya Gannon on 02-14-2025 CO2 [Moles/Vol] 23.7 mmol/L 21.0-32.0 [facility] Chest PA and Lateralon 02-14 Chest PA and Lateral Normal [facility] Chloride assayOrdered By: Martín Gannon on 02-14-2025 Chloride [Moles/Vol] 100 mmol/L 98-108 [facility] Comprehensive Metabolic Prof ilon 02-14-2025 Albumin [Mass/Vol] 3.7 g/dL Normal 3.4-4.8 [facility] Comment on above: Performed By: #### L 503.6005, L300.4310, L100.0100, L300.3900, L500.4050, L501.2450 ####[facility] [address] [place], [address] Albumin/Globulin [Mass ratio] 1.2 {ratio} Normal 0.9-2.4 [facility] Comment on above: Performed By: #### L 503.6005, L300.4310, L100.0100, L300.3900, L500.4050, L501.2450 ####[facility] [address] [place], [address] ALK PHOS 150 U/L High 35-104 [facility] Comment on above: Performed By: #### L 503.6005, L300.4310, L100.0100, L300.3900, L500.4050, L501.2450 ####[facility] [address] [place], [address] ALT [Catalytic activity/Vol] 14 U/L Normal <=34 [facility] Comment on above: Performed By: #### L 503.6005, L300.4310, L100.0100, L300.3900, L500.4050, L501.2450 ####[facility] [address] [place], [address] AST [Catalytic activity/Vol] 25 U/L Normal <=31 [facility] Comment on above: Performed By: #### L 503.6005, L300.4310, L100.0100, L300.3900, L500.4050, L501.2450 ####[facility] [address] [place], [address] Bilirubin [Mass/Vol] 0.56 mg/dL Normal 0.00-1.30 [facility] Comment on above: Performed By: #### L 503.6005, L300.4310, L100.0100, L300.3900, L500.4050, L501.2450 ####[facility] [address] [place], [address] BUN/CRE 19.4 RATIO Normal 10-20 [facility] Comment on above: Performed By: #### L 503.6005, L300.4310, L100.0100, L300.3900, L500.4050, L501.2450 ####[facility] [address] [place], [address] Calcium [Mass/Vol] 8.9 mg/dL Normal 7.6-11.0 [facility] Comment on above: Performed By: #### L 503.6005, L300.4310, L100.0100, L300.3900, L500.4050, L501.2450 ####[facility] [address] [place], [address] Chloride [Moles/Vol] 100 mmol/L Normal 98-108 [facility] Comment on above: Performed By: #### L 503.6005, L300.4310, L100.0100, L300.3900, L500.4050, L501.2450 ####[facility] [address] [place], [address] CO2 [Moles/Vol] 23.7 mmol/L Normal 21.0-32.0 [facility] Comment on above: Performed By: #### L 503.6005, L300.4310, L100.0100, L300.3900, L500.4050, L501.2450 ####[facility] [address] [place], [address] Creatinine [Mass/Vol] 0.94 mg/dL Normal 0.70-1.20 [facility] Comment on above: Performed By: #### L 503.6005, L300.4310, L100.0100, L300.3900, L500.4050, L501.2450 ####[facility] [address] [place], [address] ECRCL 40.09 ml/min Low 50-250 [facility] Comment on above: Performed By: #### L 503.6005, L300.4310, L100.0100, L300.3900, L500.4050, L501.2450 ####[facility] [address] [place], [address] GAP 12 Normal 5-15 [facility] Comment on above: Performed By: #### L 503.6005, L300.4310, L100.0100, L300.3900, L500.4050, L501.2450 ####[facility] [address] [place], [address] GFR/1.73 sq M.predicted among non-blacks MDRD (S/P/Bld) [Vol rate/Area] 60 mL/min/{1.73_m2} Normal >60 [facility] Comment on above: Result Comment: mL/m in/1.73m2 CKD-EPI Creatinine Equation (2020) Performed By: #### L 503.6005, L300.4310, L100.0100, L300.3900, L500.4050, L501.2450 ####[facility] [address] [place], [address] Globulin (S) [Mass/Vol] 3.1 g/dL Normal 2.2-4.2 [facility] Comment on above: Performed By: #### L 503.6005, L300.4310, L100.0100, L300.3900, L500.4050, L501.2450 ####[facility] [address] [place], [address] Glucose [Mass/Vol] 92 mg/dL Normal 70-99 [facility] Comment on above: Performed By: #### L 503.6005, L300.4310, L100.0100, L300.3900, L500.4050, L501.2450 ####[facility] [address] [place], [address] Potassium [Moles/Vol] 3.7 mmol/L Normal 3.3-5.1 [facility] Comment on above: Performed By: #### L 503.6005, L300.4310, L100.0100, L300.3900, L500.4050, L501.2450 ####[facility] [address] [place], [address] Sodium [Moles/Vol] 135 mmol/L Normal 133-145 [facility] [facility] Comment on above: Performed By: #### L 503.6005, L300.4310, L100.0100, L300.3900, L500.4050, L501.2450 ####[facility] [address] [place], [place], [id number] T PROT 6.9 g/dL Normal 5.9-8.4 [facility] Comment on above: Performed By: #### L 503.6005, L300.4310, L100.0100, L300.3900, L500.4050, L501.2450 ####[facility] [address] [place], [place], [id number] Urea nitrogen [Mass/Vol] 18 mg/dL Normal 4-19 [facility] Comment on above: Performed By: #### L 503.6005, L300.4310, L100.0100, L300.3900, L500.4050, L501.2450 ####[facility] [address] [place], [place], [id number] Emergency Department Summary on 02-14-2025 Emergency Department Summary Normal [facility] Eosinophil percentageOrdered By: Arya Gannon on 02-14-2025 Eosinophils/100 WBC (Bld) 0.8 % 0-5 [facility] Erythrocyte distribution wid th ratioOrdered By: Arya ClydeLizeth on 02-14-2025 Erythrocyte distribution width (RBC) [Ratio] 16.3 % High 11.6-14.6 [facility] Erythrocyte distribution wid th standard deviationOrdered By: Arya Niranjanalbuquer[facility] centerestefany Stanley on 02-14-2025 Erythrocyte distribution width (RBC) [Ratio] 52.9 fl High 35.1-43.9 [facility] Glomerular filtration rate ( GFR) estimation/1.73 sq m using serum, plasma, or whole bOrdered By: Arya Gannon on 02-14-2025 GFR/1.73 sq M.predicted among non-blacks MDRD (S/P/Bld) [Vol rate/Area] 60 mL/min/{1.73_m2} >60 [facility] H AND P Exam - Hospitaliston 02-14-2025 H&P Exam - Hospitalist Normal [facility] Hematocrit Auto (Bld) [Volum e fraction]Ordered By: Arya Gannon on 02-14-2025 Hematocrit (Bld) [Volume fraction] 35.8 % Low 37-47 [facility] Hemoglobin measurementOrdere d By: Arya Karla on 02-14-2025 Hemoglobin (Bld) [Mass/Vol] 11.5 g/dL Low 12.0-15.0 [facility] Immature granulocytes/100 WB C Auto (Bld)Ordered By: [facility] Cent[facility]aria guadalupeLizeth on 02-14-2025 Immature granulocytes/100 WBC (Bld) 0.700 % 0.0-0.9 [facility] Influenza virus A and B and SARS-CoV-2 (COVID-19) and Respiratory syncytial virus RNAOrdered By: [facility] Centermaria guadalupeSt. Cloud VA Health Care SystemLizeth on 02-14-2025 SARS-CoV-2 (COVID-19) RNA ZAID+probe Ql (Unsp spec) [facility] Ketones Test strip Ql (U)Ord ered By: [facility] CenterrossLizeth on 02-14-2025 Ketones Ql (U) 5 mg/dl High Negative [facility] L501.4021on 02-14-2025 Trop T High Sen 35 ng/L High <=14 [facility] Comment on above: Performed By: #### L 501.4021 ####[facility] [address] [place], [place], [id number] Lactic Acidon 02-14-2025 Lactate [Moles/Vol] 1.3 mmol/L Normal 0.0-2.0 [facility] Comment on above: Order Comment: Y Performed By: #### L 503.6005, L300.4310, L100.0100, L300.3900, L500.4050, L501.2450 ####[facility] [address] [place], [address] Legionella Antigen Urineon 0 02-14-2025 LEGU Normal [facility] Comment on above: Performed By: #### M 300.4500, M300.4600 ####[facility] [address] [place], [address] Lipaseon 02-14-2025 Lipase [Catalytic activity/Vol] 40 U/L Normal 13-75 [facility] Comment on above: Result Comment: [employer] leigh note:LIPASE revised reference range effective 22.New Lipase methodology. Expected to produce lower valuesthan the previous assay method.NEW Reference Range: 13 - 75 U/L Performed By: #### L 503.6005, L300.4310, L100.0100, L300.3900, L500.4050, L501.2450 ####[facility] [address] [place], [address] M100.678on 02-14-2025 M100.678 Pending SARS-CoV-2 (COVID 19) Negative INFLUENZA A Negative INFLUENZA B Negative RSV PCR Negative Normal [facility] Comment on above: Performed By: #### M 100.678, L400.0001 ####[facility] [address] [place], [address] MCV (mean corpuscular volume ) determinationOrdered By: Arya Gannon on 02-14-2025 MCV (RBC) [Entitic vol] 88.6 fL 81-99 [facility] Mean corpuscular hemoglobin (MCH) determinationOrdered By: Aryamisha Gannon on 02-14-2025 MCH (RBC) [Entitic mass] 28.5 pg 27.0-32.0 [facility] Monocyte percentageOrdered B y: Arya Gannon on 02-14-2025 Monocytes/100 WBC (Bld) 12.2 % High 0-10 [facility] Mucus LM Ql (Urine sed)Order ed By: Arya Gannon on 02-14-2025 Mucus Ql (Urine sed) 0 SEEN /hpf [facility] Neutrophil percentageOrdered By: Aryamisha Gannon on 02-14-2025 Neutrophils/100 WBC (Bld) 74.1 % High 47-70 [facility] Nitrite Test strip Ql (U)Ord ered By: Arya Gannon on 02-14-2025 Nitrite Ql (U) Negative Negative [facility] No Panel InformationOrdered By: Arya Gannon on 02-14-2025 25 U/L <32 [facility] Partial Thromboplast Timeon 02-14-2025 aPTT Coag (Bld) [Time] 29.6 s Normal 24.1-36.2 [facility] Comment on above: Performed By: #### L 503.6005, L300.4310, L100.0100, L300.3900, L500.4050, L501.2450 ####[facility] [address] [place], [address] Platelet countOrdered By: Martín Gannon on 02-14-2025 Platelets (Bld) [#/Vol] 328 10*3/uL 150-450 [facility] Potassium measurement (mass/ volume)Ordered By: [facility] on 02-14-2025 Potassium (Unsp spec) [Mass/Vol] 3.7 mmol/L 3.3-5.1 [facility] Protein Test strip Ql (U)Ord ered By: Aryamisha Gannon on 02-14-2025 Protein Ql (U) Negative Negative [facility] Prothrombin Time w/INRon INR Coag (PPP) [Relative time] 0.9 {INR} Normal [facility] Comment on above: Performed By: #### L 503.6005, L300.4310, L100.0100, L300.3900, L500.4050, L501.2450 ####[facility] [address] [place], [address] PT Coag (PPP) [Time] 12.7 s Normal 11.7-14.9 [facility] Comment on above: Performed By: #### L 503.6005, L300.4310, L100.0100, L300.3900, L500.4050, L501.2450 ####[facility] [address] [place], [address] Prothrombin timeOrdered By: Arya Gannon on 02-14-2025 PT Coag (PPP) [Time] 12.7 s 11.7-14.9 [facility] RBC Auto (Bld) [#/Vol]Ordere d By: Arya Gannon on 02-14-2025 RBC (Bld) [#/Vol] 4.04 10*6/uL Low 4.2-5.4 [facility] Serum creatinine measurement (mass/volume)Ordered By: Arya Gannon on 02-14-2025 Creatinine [Mass/Vol] 0.94 mg/dL 0.70-1.20 [facility] Serum globulin measurementOr dered By: Arya Gannon on 02-14-2025 Globulin (S) [Mass/Vol] 3.1 g/dL 2.2-4.2 [facility] Serum glucose measurement (m ass/volume)Ordered By: Arya Gannon on 02-14-2025 Glucose [Mass/Vol] 92 mg/dL 70-99 [facility] Serum or plasma alanine carpio otransferase (ALT) measurementOrdered By: Arya Gannon on 02-14-2025 ALT [Catalytic activity/Vol] 14 U/L <35 [facility] Serum or plasma albumin candice urement (mass/volume)Ordered By: Arya Stanley on 02-14-2025 Albumin [Mass/Vol] 3.7 g/dL 3.4-4.8 [facility] Serum or plasma albumin/glob ulin mass ratioOrdered By: Arya Gannon on 02-14-2025 Albumin/Globulin [Mass ratio] 1.2 {ratio} 0.9-2.4 [facility] Serum or plasma alkaline anthony sphatase measurementOrdered By: Arya Gannon on 02-14-2025 ALP [Catalytic activity/Vol] 150 U/L High 35-104 [facility] Serum or plasma calcium candice urement (mass/volume)Ordered By: Arya Stanley on 02-14-2025 Calcium [Mass/Vol] 8.9 mg/dL 7.6-11.0 [facility] Serum or plasma urea nitroge n measurement (mass/volume)Ordered By: Arya Gannon on 02-14-2025 Urea nitrogen [Mass/Vol] 18 mg/dL 4-19 [facility] Sodium levelOrdered By: Luis Angel Gannon on 02-14-2025 Sodium [Moles/Vol] 135 mmol/L 133-145 [facility] Squamous epithelial cells de tection in urine sediment by light microscopyOrdered By: Arya Gannon on 02-14-2025 Epithelial cells.squamous LM Ql (Urine sed) 0 SEEN /hpf 5-10 [facility] Strep pneumoniae Antig(UR,CS F)on 02-14-2025 STPAG Normal [facility] Comment on above: Performed By: #### M 300.4500, M300.4600 ####[facility] [address] [place], [address] Total proteinOrdered By: Ritchie Gannon on 02-14-2025 Protein [Mass/Vol] 6.9 g/dL 5.9-8.4 [facility] Troponin T HS 2 HRon 025 Trop T High Sen 32 ng/L High <=14 [facility] Comment on above: Performed By: #### L 499.0042 ####[facility] [address] [place], [place], [id number] Troponin T.cardiac [Mass/vol ume] in Serum or Plasma by High sensitivity methodOrdered By: Arya Gannon on 02-14-2025 Troponin T.cardiac High sensitivity method [Mass/Vol] 32 ng/L High <14 [facility] Troponin T.cardiac High sensitivity method [Mass/Vol] 35 ng/L High <14 [facility] Urinalysis, Completeon 02-14 WBC 0-5 SEEN Normal 0-5 [facility] Comment on above: Order Comment: CLEAN CATCH Performed By: #### M 100.678, L400.0001 ####[facility] [address] [place], [address] BACTERIA 0 SEEN Normal None Seen [facility] Comment on above: Order Comment: CLEAN CATCH Performed By: #### M 100.678, L400.0001 ####[facility] [address] [place], [address] EPI,SQUAMOUS 0 SEEN Normal 5-10 [facility] Comment on above: Order Comment: CLEAN CATCH Performed By: #### M 100.678, L400.0001 ####[facility] [address] [place], [address] Mucus Ql (Urine sed) 0 SEEN Normal [facility] Comment on above: Order Comment: CLEAN CATCH Performed By: #### M 100.678, L400.0001 ####[facility] [address] [place], [address] RBC 0 SEEN Normal 0-5 [facility] Comment on above: Order Comment: CLEAN CATCH Performed By: #### M 100.678, L400.0001 ####[facility] [address] [place], [address] Urine Legionella pneumophila antigen detectionOrdered By: Liudmila Morin on 02-14-2025 L. pneumophila Ag Ql (U) [facility] Urine clarityOrdered By: Ritchie Gannon on 02-14-2025 Clarity (U) Clear Clear [facility] Urine color determinationOrd ered By: Arya Gannon on 02-14-2025 Color (U) Yellow Yellow [facility] Urine glucose detectionOrder ed By: Arya Gannon on 02-14-2025 Glucose Ql (U) Normal mg/dl Normal [facility] Urine leukocyte esterase det ection by dipstickOrdered By: Arya Gannon on 02-14-2025 Leukocyte esterase Test strip Ql (U) 25 /ul High Negative [facility] Urine pHOrdered By: Arya Acosta on 02-14-2025 pH (U) 6.0 [pH] 5.0 - 8.0 [facility] Urine sediment bacteria coun t by microscopy (number/high power field)Ordered By: Arya Gannon on 02-14-2025 Bacteria LM.HPF (Urine sed) [#/Area] 0 /[HPF] None Seen [facility] Urine specific gravity measu rementOrdered By: [facility] CenterKarla on 02-14-2025 Specific gravity (U) [Rel density] 1.015 1.002-1.03 0 [facility] Urine urobilinogen measureme ntOrdered By: Arya Teressa on 02-14-2025 Urobilinogen Ql (U) Normal mg/dl Normal [facility] White blood cell (WBC) count Ordered By: Arya Gannon on 02-14-2025 WBC (Bld) [#/Vol] 10.0 10*3/uL 4.4-11.0 [facility] White blood cell countOrdere d By: Arya Gannon on 02-14-2025 White blood cell count 0-5 SEEN /hpf 0-5 [facility] OPERATIVE PROCEDURESon 02-02 OPERATIVE PROCEDURES [facility] OPERATIVE REPORT NAME ACCOUNT SEX AGE ADMIT DISCHARGE PT MED. RECORD# NUMBER DATE DATE TYPE SAPNA BULLARD [id number] F [id number] 01/20/25 01/20/25 2 [id number] ROOM: [facility] DATE OF : 1940 DICTATING PHYSICIAN: Marcos White DATE OF PROCEDURE: January 20, 2025 SURGEON: Marcos White DO SENIOR PRODUCT ANALYST: None. ANESTHESIOLOGIST: ANESTHETIC: Local. PRE-PROCEDURE DIAGNOSIS: Lumbosacral [...] Marcos White DO 01/20/25 12:08 JOB #: [id number] Transcribed By: tim 01/20/25 13:35 Electronically signed by: E-SIGN: MARCOS WHITE 02/02/25 07:18 Page 2 of 2 SAPNA BULLARD Operative Report [facility] Absolute lymphocyte countOrd ered By: Genevieve Wu on 01-30-2025 Lymphocytes Auto (Unsp spec) [#/Vol] 1.91 10*3/uL 0.83-4.51 [facility] Anion gap in Serum or Plasma Ordered By: Genevieve Wu on 01-30-2025 Anion gap [Moles/Vol] 11 mmol/L 5-15 [facility] Automated lymphocyte count a s percentage of total leukocytesOrdered By: Genevieve Wu on 01-30-2025 Lymphocytes/100 WBC Auto (Unsp spec) 20.1 % - [facility] BUN/creatinine ratioOrdered By: Genevieve Wu on 01-30-2025 Urea nitrogen/Creatinine [Mass ratio] 21.1 mg/mg High 10- [facility] Basophil percentageOrdered B y: Genevieve Galavizdrew on 01-30-2025 Basophils/100 WBC (Bld) 0.2 % 0-1 [facility] Carbon dioxide, total [Moles /volume] in Central venous bloodOrdered By: Aebmihirkarleysharon Blackjuanitadrew on 01-30-2025 CO2 [Moles/Vol] 25.1 mmol/L 21.0-32.0 [facility] Chloride assayOrdered By: Abe yasminsharon Blackjuanitadrew on 01-30-2025 Chloride [Moles/Vol] 106 mmol/L 98-108 [facility] Eosinophil percentageOrdered By: mihirhumesharon Blackjuanitadrew on 01-30-2025 Eosinophils/100 WBC (Bld) 1.9 % 0-5 [facility] Erythrocyte distribution wid th ratioOrdered By: mihirhumesharon Blackjuanitadrew on 01-30-2025 Erythrocyte distribution width (RBC) [Ratio] 16.2 % High 11.6-14.6 [facility] Erythrocyte distribution wid th standard deviationOrdered By: mihirhumesharon Blackjuanitadrew on 01-30-2025 Erythrocyte distribution width (RBC) [Ratio] 53.1 fl High 35.1-43.9 [facility] Glomerular filtration rate ( GFR) estimation/1.73 sq m using serum, plasma, or whole bOrdered By: Abehaseeb Blackjuanitadrew on 01-30-2025 GFR/1.73 sq M.predicted among non-blacks MDRD (S/P/Bld) [Vol rate/Area] 63 mL/min/{1.73_m2} >60 [facility] Hematocrit Auto (Bld) [Volum e fraction]Ordered By: Genevieve Wu on 01-30-2025 Hematocrit (Bld) [Volume fraction] 34.7 % Low 37-47 [facility] Hemoglobin measurementOrdere d By: haseeb Wu on 01-30-2025 Hemoglobin (Bld) [Mass/Vol] 10.5 g/dL Low 12.0-15.0 [facility] Immature granulocytes/100 WB C Auto (Bld)Ordered By: mihirhumesharon Wu on 01-30-2025 Immature granulocytes/100 WBC (Bld) 1.300 % High 0.0-0.9 [facility] MCV (mean corpuscular volume ) determinationOrdered By: Genevieve Wu on 01-30-2025 MCV (RBC) [Entitic vol] 91.3 fL 81-99 [facility] Mean corpuscular hemoglobin (MCH) determinationOrdered By: Genevieve Blackjuanitadrew on 01-30-2025 MCH (RBC) [Entitic mass] 27.6 pg 27.0-32.0 [facility] Monocyte percentageOrdered B y: Genevieve Wu on 01-30-2025 Monocytes/100 WBC (Bld) 10.3 % High 0-10 [facility] Neutrophil percentageOrdered By: Genevieve Wu on 01-30-2025 Neutrophils/100 WBC (Bld) 66.2 % 47-70 [facility] Platelet countOrdered By: Abe Wu on 01-30-2025 Platelets (Bld) [#/Vol] 331 10*3/uL 150-450 [facility] Potassium measurement (mass/ volume)Ordered By: Genevieve Wu on 01-30-2025 Potassium (Unsp spec) [Mass/Vol] 4.2 mmol/L 3.3-5.1 [facility] RBC Auto (Bld) [#/Vol]Ordere d By: Genevieve Wu on 01-30-2025 RBC (Bld) [#/Vol] 3.80 10*6/uL Low 4.2-5.4 [facility] Serum creatinine measurement (mass/volume)Ordered By: Genevieve Wu on 01-30-2025 Creatinine [Mass/Vol] 0.90 mg/dL 0.70-1.20 [facility] Serum glucose measurement (m ass/volume)Ordered By: Genevieve Wu on 01-30-2025 Glucose [Mass/Vol] 128 mg/dL High 70-99 [facility] Serum or plasma calcium candice urement (mass/volume)Ordered By: Genevieve Wu on 01-30-2025 Calcium [Mass/Vol] 9.1 mg/dL 7.6-11.0 [facility] Serum or plasma urea nitroge n measurement (mass/volume)Ordered By: Genevieve Wu on 01-30-2025 Urea nitrogen [Mass/Vol] 19 mg/dL 4-19 [facility] Sodium levelOrdered By: Gerardo ashley Waynejuanitadrew on 01-30-2025 Sodium [Moles/Vol] 142 mmol/L 133-145 [facility] White blood cell (WBC) count Ordered By: Genevieve Wu on 01-30-2025 WBC (Bld) [#/Vol] 9.5 10*3/uL 4.4-11.0 [facility] C-ARM USAGE 1 HOURon C-ARM USAGE 1 HOUR [place] [address] Patient: SAPNA BULLARD Phone#: : 1940 Age: 85 Gender: F Pt. Type: Out Account: [id number] Location: [facility] Ordering: MARCOS WHITE Exam Date: 01/20/2025/12:02 Family Phys: NICCI LEVINERADHA Charge Code: 151833 Physician: Ward Order #: [id number] Dose#: 1.85 mGy PROCEDURE: C-ARM USEAGE 1 HR COMPARISON: [facility], , C-ARM USEAGE 1 HR, 08/11/2024, [...] Richardson MD on 01/20/2025 at 13:05 [facility] Absolute lymphocyte countOrd ered By: Genevieve Wu on 01-02-2025 Lymphocytes Auto (Unsp spec) [#/Vol] 1.82 10*3/uL 0.83-4.51 [facility] Absolute neutrophil countOrd ered By: Genevieve Wu on 01-02-2025 Neutrophils (Bld) [#/Vol] 6.3 10*3/uL 2.0-7.7 [facility] Anion gap in Serum or Plasma Ordered By: Genevieve Wu on 01-02-2025 Anion gap [Moles/Vol] 16 mmol/L High 5-15 [facility] Automated lymphocyte count a s percentage of total leukocytesOrdered By: Genevieve Wu on 01-02-2025 Lymphocytes/100 WBC Auto (Unsp spec) 19.0 % 19- [facility] BUN/creatinine ratioOrdered By: Genevieve Wu on 01-02-2025 Urea nitrogen/Creatinine [Mass ratio] 18.7 mg/mg 10-20 [facility] Basophil percentageOrdered B y: Genevieve Wu on 01-02-2025 Basophils/100 WBC (Bld) 0.5 % 0-1 [facility] Bilirubin directOrdered By: Genevieve Wu on 01-02-2025 Bilirubin.direct [Mass/Vol] mg/dL 0.00-0.30 [facility] Bilirubin, totalOrdered By: Genevieve Wu on 01-02-2025 Bilirubin [Mass/Vol] 0.23 mg/dL 0.00-1.30 [facility] Calculated very low density lipoprotein (VLDL) cholesterol measurementOrdered By: Genevieve Wu on 01-02-2025 Calculated very low density lipoprotein (VLDL) cholesterol measurement 38 mg/dL 5-40 [facility] Carbon dioxide, total [Moles /volume] in Central venous bloodOrdered By: Genevieve Wu on 01-02-2025 CO2 [Moles/Vol] 21.7 mmol/L 21.0-32.0 [facility] Chloride assayOrdered By: Abe Wu on 01-02-2025 Chloride [Moles/Vol] 101 mmol/L 98-108 [facility] Eosinophil percentageOrdered By: Genevieve Wu on 01-02-2025 Eosinophils/100 WBC (Bld) 1.6 % 0-5 [facility] Erythrocyte distribution wid th ratioOrdered By: Genevieve Wu on 01-02-2025 Erythrocyte distribution width (RBC) [Ratio] 15.1 % High 11.6-14.6 [facility] Erythrocyte distribution wid th standard deviationOrdered By: Genevieve Wu on 01-02-2025 Erythrocyte distribution width (RBC) [Ratio] 49.0 fl High 35.1-43.9 [facility] Glomerular filtration rate ( GFR) estimation/1.73 sq m using serum, plasma, or whole bOrdered By: Genevieve Wu on 01-02-2025 GFR/1.73 sq M.predicted among non-blacks MDRD (S/P/Bld) [Vol rate/Area] 62 mL/min/{1.73_m2} >60 [facility] Comment on above: mL/min/1.73m2 CKD-EP I Creatinine Equation (2020) Hematocrit Auto (Bld) [Volum e fraction]Ordered By: Genevieve Wu on 01-02-2025 Hematocrit (Bld) [Volume fraction] 39.4 % 37-47 [facility] Hemoglobin measurementOrdere d By: Genevieve Wu on 01-02-2025 Hemoglobin (Bld) [Mass/Vol] 11.9 g/dL Low 12.0-15.0 [facility] Immature granulocytes/100 WB C Auto (Bld)Ordered By: Genevieve Wu on 01-02-2025 Immature granulocytes/100 WBC (Bld) 0.500 % 0.0-0.9 [facility] Comment on above: IG% - Immature Granu locytes (promyelocytes, myelocytes and metamyelocytes) > 1% indicates that a LEFT SHIFT is Present. LDL calc ser/plasOrdered By: Genevieve Wu on 01-02-2025 Cholesterol in LDL [Mass/Vol] 97 mg/dL [facility] Comment on above: Vwfomonjkt=202-234 m g/dL & Higher Raqk=358 mg/dL or greater Laboratory - Chemistry and C hemistry - challengeOrdered By: Genevieve Wu on 01-02-2025 AST [Catalytic activity/Vol] 23 U/L <32 [facility] MCV (mean corpuscular volume ) determinationOrdered By: Genevieve Wu on 01-02-2025 MCV (RBC) [Entitic vol] 88.7 fL 81-99 [facility] Mean corpuscular hemoglobin (MCH) determinationOrdered By: Genevieve Wu on 01-02-2025 MCH (RBC) [Entitic mass] 26.8 pg Low 27.0-32.0 [facility] Mean corpuscular hemoglobin concentration (MCHC) determinationOrdered By: Genevieve Wu on 01-02-2025 MCHC (RBC) [Mass/Vol] 30.2 g/dL Low 32-36 [facility] Mean platelet volume determi nationOrdered By: Genevieve Wu on 01-02-2025 Platelet mean volume (Bld) [Entitic vol] 9.2 fL 6.2-12.0 [facility] Monocyte percentageOrdered B y: Genevieve Wu on 01-02-2025 Monocytes/100 WBC (Bld) 12.3 % High 0-10 [facility] Neutrophil percentageOrdered By: Genevieve Wu on 01-02-2025 Neutrophils/100 WBC (Bld) 66.1 % 47-70 [facility] No Panel InformationOrdered By: Genevieve Wu on 01-02-2025 23 U/L <32 [facility] [facility] Nucleated red blood cell per centageOrdered By: Genevieve Wu on 01-02-2025 Nucleated RBC/100 WBC (Bld) [Ratio] 0 % 0-5 [facility] Platelet countOrdered By: Abe Wu on 01-02-2025 Platelets (Bld) [#/Vol] 431 10*3/uL 150-450 [facility] Potassium measurement (mass/ volume)Ordered By: Genevieve Wu on 01-02-2025 Potassium (Unsp spec) [Mass/Vol] 3.8 mmol/L 3.3-5.1 [facility] RBC Auto (Bld) [#/Vol]Ordere d By: Genevieve Wu on 01-02-2025 RBC (Bld) [#/Vol] 4.44 10*6/uL 4.2-5.4 [facility] Screening total cholesterol/ high density lipoprotein (HDL) cholesterol ratioOrdered By: Genevieve Wu on 01-02-2025 Cholesterol.total/Cho lesterol in HDL [Mass ratio] 3.62 {ratio} [facility] Serum creatinine measurement (mass/volume)Ordered By: Genevieve Wu on 01-02-2025 Creatinine [Mass/Vol] 0.92 mg/dL 0.70-1.20 [facility] Serum globulin measurementOr dered By: Genevieve Wu on 01-02-2025 Globulin (S) [Mass/Vol] 3.6 g/dL 2.2-4.2 [facility] Serum glucose measurement (m ass/volume)Ordered By: Genevieve Wu on 01-02-2025 Glucose [Mass/Vol] 76 mg/dL 70-99 [facility] Serum or plasma alanine carpio otransferase (ALT) measurementOrdered By: Genevieve Wu on 01-02-2025 ALT [Catalytic activity/Vol] 7 U/L <35 [facility] Serum or plasma albumin candice urement (mass/volume)Ordered By: Genevieve Wu on 01-02-2025 Albumin [Mass/Vol] 4.0 g/dL 3.4-4.8 [facility] Serum or plasma alkaline anthony sphatase measurementOrdered By: Genevieve Wu 01-02-2025 ALP [Catalytic activity/Vol] 150 U/L High 35-104 [facility] Serum or plasma calcium candice urement (mass/volume)Ordered By: Genevieve Wu on 01-02-2025 Calcium [Mass/Vol] 9.7 mg/dL 7.6-11.0 [facility] Serum or plasma cholesterol in HDL measurement (mass/volume)Ordered By: Genevieve Wu on 01-02-2025 Cholesterol in HDL [Mass/Vol] 52 mg/dL >40 [facility] Comment on above: National Cholesterol Education Program (NCEP) guidelines:<40 mg/dL: Low HDL-cholesterol (major risk factor for CHD)>= 60 mg/dL: High HDL-cholesterol (negative risk factor for CHD)HDL-cholesterol is affected by a number of factors, e.g. smoking, exercise, hormones, sex and age. Serum or plasma cholesterol measurement (mass/volume)Ordered By: Genevieve Wu on 01-02-2025 Cholesterol [Mass/Vol] 187 mg/dL <201 [facility] Comment on above: Cholesterol level, D esirable <200 mg/dLBorderline high cholesterol 200-239 mg/dLHigh cholesterol >=240 mg/dLRecommendations of the NCEP Adult Treatment Panel for the following risk-cutoff thresholds for the [place] population. Serum or plasma urea nitroge n measurement (mass/volume)Ordered By: Genevieve Wu on 01-02-2025 Urea nitrogen [Mass/Vol] 17 mg/dL 4-19 [facility] Sodium levelOrdered By: Gerardo kohligilbertdrew Wu on 01-02-2025 Sodium [Moles/Vol] 139 mmol/L 133-145 [facility] Total proteinOrdered By: Garry Wu on 01-02-2025 Protein [Mass/Vol] 7.6 g/dL 5.9-8.4 [facility] Triglycerides measurementOrd ered By: Genevieve Wu on 01-02-2025 Triglyceride [Mass/Vol] 192 mg/dL <199 [facility] Comment on above: The drugs N-Acetylcy steine and Metamizole may falsely depress this assay. Normal range: <150 mg/dLBorderline High: 150-199 mg/dLHigh: 200-499 mg/dLVery High: >500 mg/dL White blood cell (WBC) count Ordered By: Genevieve Wu on 01-02-2025 WBC (Bld) [#/Vol] 9.6 10*3/uL 4.4-11.0 [facility] Pulmonary Visit Reporton Pulmonary Visit Report Normal [facility] Neurology Visit Reporton Neurology Visit Report Normal [facility] Absolute lymphocyte countOrd ered By: Genevieve Wu on 11-28-2024 Lymphocytes Auto (Unsp spec) [#/Vol] 2.10 10*3/uL 0.83-4.51 [facility] Absolute neutrophil countOrd ered By: Genevieve Wu on 11-28-2024 Neutrophils (Bld) [#/Vol] 6.1 10*3/uL 2.0-7.7 [facility] Anion gap in Serum or Plasma Ordered By: Genevieve Wu on 11-28-2024 Anion gap [Moles/Vol] 14 mmol/L 5-15 [facility] Automated lymphocyte count a s percentage of total leukocytesOrdered By: Genevieve Wu on 11-28-2024 Lymphocytes/100 WBC Auto (Unsp spec) 22.2 % 19-41 [facility] BUN/creatinine ratioOrdered By: Genevieve Wu on 11-28-2024 Urea nitrogen/Creatinine [Mass ratio] 14.9 mg/mg 10-20 [facility] Basophil percentageOrdered B y: Genevieve Wu on 11-28-2024 Basophils/100 WBC (Bld) 0.7 % 0-1 [facility] Carbon dioxide, total [Moles /volume] in Central venous bloodOrdered By: Genevieve Wu on 11-28-2024 CO2 [Moles/Vol] 23.8 mmol/L 21.0-32.0 [facility] Chest without Contraston Chest without Contrast Normal [facility] Chloride assayOrdered By: Abe Wu on 11-28-2024 Chloride [Moles/Vol] 103 mmol/L 98-108 [facility] Eosinophil percentageOrdered By: Genevieve Wu on 11-28-2024 Eosinophils/100 WBC (Bld) 2.0 % 0-5 [facility] Erythrocyte distribution wid th ratioOrdered By: Genevieve Wu on 11-28-2024 Erythrocyte distribution width (RBC) [Ratio] 14.6 % 11.6-14.6 [facility] Erythrocyte distribution wid th standard deviationOrdered By: Genevieve Wu on 11-28-2024 Erythrocyte distribution width (RBC) [Ratio] 46.7 fl High 35.1-43.9 [facility] Glomerular filtration rate ( GFR) estimation/1.73 sq m using serum, plasma, or whole bOrdered By: Genevieve Wu on 11-28-2024 GFR/1.73 sq M.predicted among non-blacks MDRD (S/P/Bld) [Vol rate/Area] 57 mL/min/{1.73_m2} Low >60 [facility] Comment on above: mL/min/1.73m2 CKD-EP I Creatinine Equation (2020) Hematocrit Auto (Bld) [Volum e fraction]Ordered By: mihirhumesharon Wu on 11-28-2024 Hematocrit (Bld) [Volume fraction] 40.5 % 37-47 [facility] Hemoglobin measurementOrdere d By: [facility] on 11-28-[facility] Hemoglobin (Bld) [Mass/Vol] 12.3 g/dL 12.0-15.0 [facility] Immature granulocytes/100 WB C Auto (Bld)Ordered By: mihirhumesharon Wu on 11-28-2024 Immature granulocytes/100 WBC (Bld) 0.400 % 0.0-0.9 [facility] Comment on above: IG% - Immature Granu locytes (promyelocytes, myelocytes and metamyelocytes) > 1% indicates that a LEFT SHIFT is Present. MCV (mean corpuscular volume ) determinationOrdered By: mihirhumesharon Blackdrew on 11-28-2024 MCV (RBC) [Entitic vol] 87.9 fL 81-99 [facility] Mean corpuscular hemoglobin (MCH) determinationOrdered By: [facility]drew on 11-28-2024 MCH (RBC) [Entitic mass] 26.7 pg Low 27.0-32.0 [facility] Mean corpuscular hemoglobin concentration (MCHC) determinationOrdered By: mihirhumesharon Wu on 11-28-2024 MCHC (RBC) [Mass/Vol] 30.4 g/dL Low 32-36 [facility] Mean platelet volume determi nationOrdered By: [facility]drew on 11-28-2024 Platelet mean volume (Bld) [Entitic vol] 9.3 fL 6.2-12.0 [facility] Monocyte percentageOrdered B y: mihirhumesharon Blackdrew on 11-28-2024 Monocytes/100 WBC (Bld) 10.1 % High 0-10 [facility] Neutrophil percentageOrdered By: Genevieve Wu on 11-28-2024 Neutrophils/100 WBC (Bld) 64.6 % 47-70 [facility] Nucleated red blood cell per centageOrdered By: Genevieve Wu on 11-28-2024 Nucleated RBC/100 WBC (Bld) [Ratio] 0 % 0-5 [facility] Platelet countOrdered By: bAe Wu on 11-28-2024 Platelets (Bld) [#/Vol] 415 10*3/uL 150-450 [facility] Potassium measurement (mass/ volume)Ordered By: Genevieve Wu on 11-28-2024 Potassium (Unsp spec) [Mass/Vol] 3.4 mmol/L 3.3-5.1 [facility] RBC Auto (Bld) [#/Vol]Ordere d By: Genevieve Wu on 11-28-2024 RBC (Bld) [#/Vol] 4.61 10*6/uL 4.2-5.4 [facility] Serum creatinine measurement (mass/volume)Ordered By: Genevieve Wu on 11-28-2024 Creatinine [Mass/Vol] 0.98 mg/dL 0.70-1.20 [facility] Serum glucose measurement (m ass/volume)Ordered By: Genevieve Wu on 11-28-2024 Glucose [Mass/Vol] 95 mg/dL 70-99 [facility] Serum or plasma calcium candice urement (mass/volume)Ordered By: Genevieve Wu on 11-28-2024 Calcium [Mass/Vol] 9.5 mg/dL 7.6-11.0 [facility] Serum or plasma urea nitroge n measurement (mass/volume)Ordered By: Genevieve Wu on 11-28-2024 Urea nitrogen [Mass/Vol] 15 mg/dL 4-19 [facility] Sodium levelOrdered By: Gerardo Wu on 11-28-2024 Sodium [Moles/Vol] 141 mmol/L 133-145 [facility] White blood cell (WBC) count Ordered By: Genevieve Wu 11-28-2024 WBC (Bld) [#/Vol] 9.5 10*3/uL 4.4-11.0 [facility] Echocardiogram study reportO rdered By: Sharon Crouch on 11-09-2024 Study report [facility] [id number] [id number] Echo Complete 11/08/24 0912 MR#: [id number] Acct: [id number] Name: SAPNA BULLARD Rep #:[id number] : [id number] From: Sharon Crouch MD Attending Dr: Dr. Yunior Desai MD Status: REG CLI Ordering Dr: Yunior Desai MD Date: 11/08/24 Location: [facility] Sex: F C Admitted: Reason For [...] Date Dictated: 11/08/2412 Date Transcribed: 11/09/24 1034 Administration Assistant: Signed [facility] Work Phone: Echo Completeon 11-08-2024 Echo Complete Normal [facility] Absolute lymphocyte countOrd ered By: Genevieve Wu on 10-31-2024 Lymphocytes Auto (Unsp spec) [#/Vol] 1.57 10*3/uL 0.83-4.51 [facility] Absolute neutrophil countOrd ered By: Genevieve Wu on 10-31-2024 Neutrophils (Bld) [#/Vol] 5.6 10*3/uL 2.0-7.7 [facility] Anion gap in Serum or Plasma Ordered By: Genevieve Wu on 10-31-2024 Anion gap [Moles/Vol] 11 mmol/L 5-15 [facility] Automated lymphocyte count a s percentage of total leukocytesOrdered By: Genevieve Wu on 10-31-2024 Lymphocytes/100 WBC Auto (Unsp spec) 18.6 % Low 19- [facility] BUN/creatinine ratioOrdered By: Genevieve Wu on 10-31-2024 Urea nitrogen/Creatinine [Mass ratio] 17.8 mg/mg 10- [facility] Basophil percentageOrdered B y: Genevieve Wu on 10-31-2024 Basophils/100 WBC (Bld) 0.6 % 0-1 [facility] Carbon dioxide, total [Moles /volume] in Central venous bloodOrdered By: Genevieve Wu on 10-31-2024 CO2 [Moles/Vol] 25.5 mmol/L 21.0-32.0 [facility] Chloride assayOrdered By: Abe Wu on 10-31-2024 Chloride [Moles/Vol] 103 mmol/L 98-108 [facility] Eosinophil percentageOrdered By: haseeb Wu on 10-31-2024 Eosinophils/100 WBC (Bld) 2.1 % 0-5 [facility] Erythrocyte distribution wid th ratioOrdered By: [facility] on 10-31-2024 Erythrocyte distribution width (RBC) [Ratio] 14.3 % 11.6-14.6 [facility] Erythrocyte distribution wid th standard deviationOrdered By: haseeb Wu on 10-31-2024 Erythrocyte distribution width (RBC) [Ratio] 45.2 fl High 35.1-43.9 [facility] Glomerular filtration rate ( GFR) estimation/1.73 sq m using serum, plasma, or whole bOrdered By: Genevieve Wu on 10-31-2024 GFR/1.73 sq M.predicted among non-blacks MDRD (S/P/Bld) [Vol rate/Area] 57 mL/min/{1.73_m2} Low >60 [facility] Comment on above: mL/min/1.73m2 CKD-EP I Creatinine Equation (2020) Hematocrit Auto (Bld) [Volum e fraction]Ordered By: Genevieve Wu on 10-31-2024 Hematocrit (Bld) [Volume fraction] 36.3 % Low 37-47 [facility] Hemoglobin measurementOrdere d By: Genevieve Wu on 10-31-2024 Hemoglobin (Bld) [Mass/Vol] 11.3 g/dL Low 12.0-15.0 [facility] Immature granulocytes/100 WB C Auto (Bld)Ordered By: Genevieve Wu on 10-31-2024 Immature granulocytes/100 WBC (Bld) 0.500 % 0.0-0.9 [facility] Comment on above: IG% - Immature Granu locytes (promyelocytes, myelocytes and metamyelocytes) > 1% indicates that a LEFT SHIFT is Present. MCV (mean corpuscular volume ) determinationOrdered By: Genevieve Wu on 10-31-2024 MCV (RBC) [Entitic vol] 86.2 fL 81-99 [facility] Mean corpuscular hemoglobin (MCH) determinationOrdered By: [facility] on 10-31-2024 MCH (RBC) [Entitic mass] 26.8 pg Low 27.0-32.0 [facility] Mean corpuscular hemoglobin concentration (MCHC) determinationOrdered By: [facility] on 10-31-2024 MCHC (RBC) [Mass/Vol] 31.1 g/dL Low 32-36 [facility] Mean platelet volume determi nationOrdered By: haseeb Wu on 10-31-2024 Platelet mean volume (Bld) [Entitic vol] 9.2 fL 6.2-12.0 [facility] Monocyte percentageOrdered B y: Genevieve Wu on 10-31-2024 Monocytes/100 WBC (Bld) 11.9 % High 0-10 [facility] Neutrophil percentageOrdered By: [facility]nedrew on 10-31-2024 Neutrophils/100 WBC (Bld) 66.3 % 47-70 [facility] Nucleated red blood cell per centageOrdered By: haseeb Wu on 10-31-2024 Nucleated RBC/100 WBC (Bld) [Ratio] 0 % 0-5 [facility] Platelet countOrdered By: mihirdion Wu on 10-31-2024 Platelets (Bld) [#/Vol] 353 10*3/uL 150-450 [facility] Potassium measurement (mass/ volume)Ordered By: haseeb Wu on 10-31-2024 Potassium (Unsp spec) [Mass/Vol] 4.1 mmol/L 3.3-5.1 [facility] RBC Auto (Bld) [#/Vol]Ordere d By: Genevieve Wu on 10-31-2024 RBC (Bld) [#/Vol] 4.21 10*6/uL 4.2-5.4 [facility] Serum creatinine measurement (mass/volume)Ordered By: Genevieve Wu on 10-31-2024 Creatinine [Mass/Vol] 0.99 mg/dL 0.70-1.20 [facility] Serum glucose measurement (m ass/volume)Ordered By: Genevieve Wu on 10-31-2024 Glucose [Mass/Vol] 92 mg/dL 70-99 [facility] Serum or plasma calcium candice urement (mass/volume)Ordered By: Genevieve Wu on 10-31-2024 Calcium [Mass/Vol] 9.1 mg/dL 7.6-11.0 [facility] Serum or plasma urea nitroge n measurement (mass/volume)Ordered By: Genevieve Wu on 10-31-2024 Urea nitrogen [Mass/Vol] 18 mg/dL 4-19 [facility] Sodium levelOrdered By: Gerardo kohlinick Jazmin on 10-31-2024 Sodium [Moles/Vol] 139 mmol/L 133-145 [facility] White blood cell (WBC) count Ordered By: Genevieve Wu on 10-31-2024 WBC (Bld) [#/Vol] 8.5 10*3/uL 4.4-11.0 [facility] Cardiology Visit Reporton Cardiology Visit Report Normal [facility] Absolute lymphocyte countOrd ered By: Genevieve Wu on 10-03-2024 Lymphocytes Auto (Unsp spec) [#/Vol] 2.02 10*3/uL 0.83-4.51 [facility] Absolute neutrophil countOrd ered By: Genevieve Wu on 10-03-2024 Neutrophils (Bld) [#/Vol] 5.3 10*3/uL 2.0-7.7 [facility] Anion gap in Serum or Plasma Ordered By: Genevieve Wu on 10-03-2024 Anion gap [Moles/Vol] 11 mmol/L 5-15 [facility] Automated lymphocyte count a s percentage of total leukocytesOrdered By: Genevieve Wu on 10-03-2024 Lymphocytes/100 WBC Auto (Unsp spec) 23.5 % 19-41 [facility] BUN/creatinine ratioOrdered By: Genevieve Wu on 10-03-2024 Urea nitrogen/Creatinine [Mass ratio] 22.3 mg/mg High 10-20 [facility] Basophil percentageOrdered B y: Genevieve Wu on 10-03-2024 Basophils/100 WBC (Bld) 0.6 % 0-1 [facility] Bilirubin directOrdered By: Genevieve Wu on 10-03-2024 Bilirubin.direct [Mass/Vol] mg/dL 0.00-0.30 [facility] Bilirubin, totalOrdered By: Genevieve Wu on 10-03-2024 Bilirubin [Mass/Vol] 0.18 mg/dL 0.00-1.30 [facility] Carbon dioxide, total [Moles /volume] in Central venous bloodOrdered By: Genevieve Wu on 10-03-2024 CO2 [Moles/Vol] 28.4 mmol/L 21.0-32.0 [facility] Chloride assayOrdered By: Abe Wu on 10-03-2024 Chloride [Moles/Vol] 101 mmol/L 98-108 [facility] Eosinophil percentageOrdered By: Genevieve Wu on 10-03-2024 Eosinophils/100 WBC (Bld) 2.4 % 0-5 [facility] Erythrocyte distribution wid th ratioOrdered By: Genevieve Wu on 10-03-2024 Erythrocyte distribution width (RBC) [Ratio] 14.8 % High 11.6-14.6 [facility] Erythrocyte distribution wid th standard deviationOrdered By: Genevieve Wu on 10-03-2024 Erythrocyte distribution width (RBC) [Ratio] 47.3 fl High 35.1-43.9 [facility] Glomerular filtration rate ( GFR) estimation/1.73 sq m using serum, plasma, or whole bOrdered By: Genevieve Wu on 10-03-2024 GFR/1.73 sq M.predicted among non-blacks MDRD (S/P/Bld) [Vol rate/Area] 61 mL/min/{1.73_m2} >60 [facility] Comment on above: mL/min/1.73m2 CKD-EP I Creatinine Equation (2020) Hematocrit Auto (Bld) [Volum e fraction]Ordered By: Genevieve Wu on 10-03-2024 Hematocrit (Bld) [Volume fraction] 39.7 % 37-47 [facility] Hemoglobin measurementOrdere d By: Genevieve Wu on 10-03-2024 Hemoglobin (Bld) [Mass/Vol] 12.1 g/dL 12.0-15.0 [facility] Immature granulocytes/100 WB C Auto (Bld)Ordered By: Genevieve Wu on 10-03-2024 Immature granulocytes/100 WBC (Bld) 0.800 % 0.0-0.9 [facility] Comment on above: IG% - Immature Granu locytes (promyelocytes, myelocytes and metamyelocytes) > 1% indicates that a LEFT SHIFT is Present. Laboratory - Chemistry and C hemistry - challengeOrdered By: Genevieve Wu on 10-03-2024 AST [Catalytic activity/Vol] 22 U/L <32 [facility] MCV (mean corpuscular volume ) determinationOrdered By: Gerardohumesharon Wu on 10-03-2024 MCV (RBC) [Entitic vol] 87.3 fL 81-99 [facility] Mean corpuscular hemoglobin (MCH) determinationOrdered By: haseeb Wu on 10-03-2024 MCH (RBC) [Entitic mass] 26.6 pg Low 27.0-32.0 [facility] Mean corpuscular hemoglobin concentration (MCHC) determinationOrdered By: Genevieve Wu on 10-03-2024 MCHC (RBC) [Mass/Vol] 30.5 g/dL Low 32-36 [facility] Mean platelet volume determi nationOrdered By: Genevieve Wu on 10-03-2024 Platelet mean volume (Bld) [Entitic vol] 9.1 fL 6.2-12.0 [facility] Monocyte percentageOrdered B y: Genevieve Wu on 10-03-2024 Monocytes/100 WBC (Bld) 11.4 % High 0-10 [facility] Neutrophil percentageOrdered By: Genevieve Wu on 10-03-2024 Neutrophils/100 WBC (Bld) 61.3 % 47-70 [facility] Nucleated red blood cell per centageOrdered By: Genevieve Wu on 10-03-2024 Nucleated RBC/100 WBC (Bld) [Ratio] 0 % 0-5 [facility] Platelet countOrdered By: Abe Wu on 10-03-2024 Platelets (Bld) [#/Vol] 456 10*3/uL High 150-450 [facility] Potassium measurement (mass/ volume)Ordered By: Genevieve Wu on 10-03-2024 Potassium (Unsp spec) [Mass/Vol] 4.1 mmol/L 3.3-5.1 [facility] RBC Auto (Bld) [#/Vol]Ordere d By: Genevieve Wu on 10-03-2024 RBC (Bld) [#/Vol] 4.55 10*6/uL 4.2-5.4 [facility] Serum creatinine measurement (mass/volume)Ordered By: Genevieve Wu on 10-03-2024 Creatinine [Mass/Vol] 0.93 mg/dL 0.70-1.20 [facility] Serum globulin measurementOr dered By: Genevieve Wu on 10-03-2024 Globulin (S) [Mass/Vol] 3.5 g/dL 2.2-4.2 [facility] Serum glucose measurement (m ass/volume)Ordered By: Genevieve Wu on 10-03-2024 Glucose [Mass/Vol] 95 mg/dL 70-99 [facility] Serum or plasma alanine carpio otransferase (ALT) measurementOrdered By: Genevieve Wu on 10-03-2024 ALT [Catalytic activity/Vol] 16 U/L <35 [facility] Serum or plasma albumin candice urement (mass/volume)Ordered By: Genevieve Wu on 10-03-2024 Albumin [Mass/Vol] 3.9 g/dL 3.4-4.8 [facility] Serum or plasma alkaline anthony sphatase measurementOrdered By: Genevieve Wu on 10-03-2024 ALP [Catalytic activity/Vol] 138 U/L High 35-104 [facility] Serum or plasma calcium candice urement (mass/volume)Ordered By: Genevieve Wu on 10-03-2024 Calcium [Mass/Vol] 10.0 mg/dL 7.6-11.0 [facility] Serum or plasma urea nitroge n measurement (mass/volume)Ordered By: Genevieve Wu on 10-03-2024 Urea nitrogen [Mass/Vol] 21 mg/dL High 4-19 [facility] Sodium levelOrdered By: Gerardo kohlinick Jazmin on 10-03-2024 Sodium [Moles/Vol] 141 mmol/L 133-145 [facility] Total proteinOrdered By: Garry andrewsharon Wu on 10-03-2024 Protein [Mass/Vol] 7.4 g/dL 5.9-8.4 [facility] White blood cell (WBC) count Ordered By: Genevieve Wu on 10-03-2024 WBC (Bld) [#/Vol] 8.6 10*3/uL 4.4-11.0 [facility] Pulmonary Visit Reporton Pulmonary Visit Report Normal [facility] Absolute lymphocyte countOrd ered By: Genevieve Wu on 08-29-2024 Lymphocytes Auto (Unsp spec) [#/Vol] 1.30 10*3/uL 0.83-4.51 [facility] Absolute neutrophil countOrd ered By: Genevieve Wu on 08-29-2024 Neutrophils (Bld) [#/Vol] 5.4 10*3/uL 2.0-7.7 [facility] Anion gap in Serum or Plasma Ordered By: Genevieve Wu on 08-29-2024 Anion gap [Moles/Vol] 9 mmol/L 5-15 [facility] Automated lymphocyte count a s percentage of total leukocytesOrdered By: Genevieve Wu on 08-29-2024 Lymphocytes/100 WBC Auto (Unsp spec) 16.7 % Low 19-41 [facility] BUN/creatinine ratioOrdered By: Genevieve Wu on 08-29-2024 Urea nitrogen/Creatinine [Mass ratio] 20.0 mg/mg 10-20 [facility] Basophil percentageOrdered B y: Gerardokarleysharon Blackjuanitadrew on 08-29-2024 Basophils/100 WBC (Bld) 0.6 % 0-1 [facility] Carbon dioxide, total [Moles /volume] in Central venous bloodOrdered By: Genevieve Wu on 08-29-2024 CO2 [Moles/Vol] 27.1 mmol/L 21.0-32.0 [facility] Chloride assayOrdered By: Abe mihirdion Wu on 08-29-2024 Chloride [Moles/Vol] 101 mmol/L 98-108 [facility] Eosinophil percentageOrdered By: Gerardohumesharon Wu on 08-29-2024 Eosinophils/100 WBC (Bld) 2.2 % 0-5 [facility] Erythrocyte distribution wid th ratioOrdered By: mihirhumesharon Jazmin on 08-29-2024 Erythrocyte distribution width (RBC) [Ratio] 16.1 % High 11.6-14.6 [facility] Erythrocyte distribution wid th standard deviationOrdered By: mihirhumesharon Blackjuanitadrew on 08-29-2024 Erythrocyte distribution width (RBC) [Ratio] 50.8 fl High 35.1-43.9 [facility] Glomerular filtration rate ( GFR) estimation/1.73 sq m using serum, plasma, or whole bOrdered By: Genveieve Wu on 08-29-2024 GFR/1.73 sq M.predicted among non-blacks MDRD (S/P/Bld) [Vol rate/Area] 64 mL/min/{1.73_m2} >60 [facility] Comment on above: mL/min/1.73m2 CKD-EP I Creatinine Equation (2020) Hematocrit Auto (Bld) [Volum e fraction]Ordered By: Genevieve Wu on 08-29-2024 Hematocrit (Bld) [Volume fraction] 38.6 % 37-47 [facility] Hemoglobin measurementOrdere d By: Genevieve Wu on 08-29-2024 Hemoglobin (Bld) [Mass/Vol] 11.9 g/dL Low 12.0-15.0 [facility] Immature granulocytes/100 WB C Auto (Bld)Ordered By: Genevieve Wu on 08-29-2024 Immature granulocytes/100 WBC (Bld) 0.500 % 0.0-0.9 [facility] Comment on above: IG% - Immature Granu locytes (promyelocytes, myelocytes and metamyelocytes) > 1% indicates that a LEFT SHIFT is Present. MCV (mean corpuscular volume ) determinationOrdered By: Genevieve Wu on 08-29-2024 MCV (RBC) [Entitic vol] 86.2 fL 81-99 [facility] Mean corpuscular hemoglobin (MCH) determinationOrdered By: mihirhumesharon Wu on 08-29-2024 MCH (RBC) [Entitic mass] 26.6 pg Low 27.0-32.0 [facility] Mean corpuscular hemoglobin concentration (MCHC) determinationOrdered By: mihirhumesharon Wu on 08-29-2024 MCHC (RBC) [Mass/Vol] 30.8 g/dL Low 32-36 [facility] Mean platelet volume determi nationOrdered By: Genevieve Wu on 08-29-2024 Platelet mean volume (Bld) [Entitic vol] 8.9 fL 6.2-12.0 [facility] Monocyte percentageOrdered B y: Genevieve Wu on 08-29-2024 Monocytes/100 WBC (Bld) 11.2 % High 0-10 [facility] Neutrophil percentageOrdered By: mihirhumesharon Wu on 08-29-2024 Neutrophils/100 WBC (Bld) 68.8 % 47-70 [facility] Nucleated red blood cell per centageOrdered By: haseeb Wu on 08-29-2024 Nucleated RBC/100 WBC (Bld) [Ratio] 0 % 0-5 [facility] Platelet countOrdered By: Abe Wu on 08-29-2024 Platelets (Bld) [#/Vol] 389 10*3/uL 150-450 [facility] Potassium measurement (mass/ volume)Ordered By: Genevieve Wu on 08-29-2024 Potassium (Unsp spec) [Mass/Vol] 4.1 mmol/L 3.3-5.1 [facility] RBC Auto (Bld) [#/Vol]Ordere d By: Gerardokarleysharon Blackjuanitadrew on 08-29-2024 RBC (Bld) [#/Vol] 4.48 10*6/uL 4.2-5.4 [facility] Serum creatinine measurement (mass/volume)Ordered By: Genevieve Wu on 08-29-2024 Creatinine [Mass/Vol] 0.90 mg/dL 0.70-1.20 [facility] Serum glucose measurement (m ass/volume)Ordered By: Genevieve Wu on 08-29-2024 Glucose [Mass/Vol] 87 mg/dL 70-99 [facility] Serum or plasma calcium candice urement (mass/volume)Ordered By: Genevieve Wu on 08-29-2024 Calcium [Mass/Vol] 9.6 mg/dL 7.6-11.0 [facility] Serum or plasma urea nitroge n measurement (mass/volume)Ordered By: Genevieve Wu on 08-29-2024 Urea nitrogen [Mass/Vol] 18 mg/dL 4-19 [facility] Sodium levelOrdered By: Gerardo dion Waynejuanitadrew on 08-29-2024 Sodium [Moles/Vol] 138 mmol/L 133-145 [facility] White blood cell (WBC) count Ordered By: Genevieve Wu on 08-29-2024 WBC (Bld) [#/Vol] 7.8 10*3/uL 4.4-11.0 [facility] OPERATIVE PROCEDURESon 08-12 OPERATIVE PROCEDURES [facility] OPERATIVE REPORT NAME ACCOUNT SEX AGE ADMIT DISCHARGE PT MED. RECORD# NUMBER DATE DATE TYPE SAPNA BULLARD [id number] F 84 08/11/24 2 [id number] ROOM: DATE OF : 1940 DICTATING PHYSICIAN: Marcos White DATE OF PROCEDURE: August 11, 2024 SURGEON: Marcos White DO SENIOR PRODUCT ANALYST: None. ANESTHESIA: Local. PREPROCEDURE DIAGNOSES: 1. Lumbosacral [...] Marcos White DO 08/11/24 10:54 JOB #: [id number] Transcribed By: am 08/11/24 11:28 Electronically signed by: E-SIGN: MARCOS WHITE 08/12/24 14:42 Page 2 of 2 SAPNA BULLARD Operative Report [facility] C-ARM USAGE 1 HOURon 025 C-ARM USAGE 1 HOUR [place] [address] Patient: SAPNA BULLARD Phone#: : 1940 Age: 84 Gender: F Pt. Type: Out Account: [id number] Location: 2 Ordering: MARCOS WHITE Exam Date: 08/11/2024/10:47 Family Phys: NICCI LEMUS Charge Code: 866975 Physician: Ward Order #: [id number] Dose#: 1.12 mGy PROCEDURE: C-ARM USEAGE 1 HR COMPARISON: [facility], , C-ARM USEAGE 1 HR, 02/05/2024, [...] Richardson MD on 08/11/2024 at 12:24 [facility] Chest WITH Contraston 2024 Chest WITH Contrast [facility] Absolute lymphocyte countOrd ered By: Genevieve Wu on 08-01-2024 Lymphocytes Auto (Unsp spec) [#/Vol] 1.98 10*3/uL 0.83-4.51 [facility] Absolute neutrophil countOrd ered By: Genevieve Wu on 08-01-2024 Neutrophils (Bld) [#/Vol] 4.1 10*3/uL 2.0-7.7 [facility] Automated lymphocyte count a s percentage of total leukocytesOrdered By: Genevieve Wu on 08-01-2024 Lymphocytes/100 WBC Auto (Unsp spec) 25.7 % 19-41 [facility] Basophil percentageOrdered B y: Genevieve Wu on 08-01-2024 Basophils/100 WBC (Bld) 0.9 % 0-1 [facility] Blood urea nitrogen (BUN)/cr eatinine ratioOrdered By: Genevieve Wu on 08-01-2024 Urea nitrogen/Creatinine [Mass ratio] 20.6 mg/mg High 10-20 [facility] Carbon dioxide measurementOr dered By: Genevieve Wu on 08-01-2024 CO2 [Moles/Vol] 32.0 mmol/L 21.0-32.0 [facility] Chloride measurementOrdered By: Genevieve Wu on 08-01-2024 Chloride [Moles/Vol] 101 mmol/L 98-107 [facility] Eosinophil percentageOrdered By: Genevieve Wu on 08-01-2024 Eosinophils/100 WBC (Bld) 4.8 % 0-5 [facility] Erythrocyte distribution wid th ratioOrdered By: Genevieve Wu on 08-01-2024 Erythrocyte distribution width (RBC) [Ratio] 15.6 % High 11.6-14.6 [facility] Erythrocyte distribution wid th standard deviationOrdered By: Genevieve Wu on 08-01-2024 Erythrocyte distribution width (RBC) [Ratio] 49.8 fl High 35.1-43.9 [facility] Glomerular filtration rate ( GFR) estimationOrdered By: Genevieve Wu on 08-01-2024 GFR/1.73 sq M.predicted among non-blacks MDRD (S/P/Bld) [Vol rate/Area] 55 mL/min/{1.73_m2} Low >60 [facility] Comment on above: Non- GFR Calc Glucose measurementOrdered B y: Genevieve Wu on 08-01-2024 Glucose [Mass/Vol] 85 mg/dL 74-106 [facility] Hematocrit Auto (Bld) [Volum e fraction]Ordered By: Genevieve Wu on 08-01-2024 Hematocrit (Bld) [Volume fraction] 39.0 % 37-47 [facility] Hemoglobin measurementOrdere d By: Genevieve Wu on 08-01-2024 Hemoglobin (Bld) [Mass/Vol] 11.4 g/dL Low 12.0-15.0 [facility] Immature granulocytes/100 WB C Auto (Bld)Ordered By: Genevieve Wu on 08-01-2024 Immature granulocytes/100 WBC (Bld) 0.800 % 0.0-0.9 [facility] Comment on above: IG% - Immature Granu locytes (promyelocytes, myelocytes and metamyelocytes) > 1% indicates that a LEFT SHIFT is Present. MCV (mean corpuscular volume ) determinationOrdered By: Genevieve Wu on 08-01-2024 MCV (RBC) [Entitic vol] 87.4 fL 81-99 [facility] Mean corpuscular hemoglobin (MCH) determinationOrdered By: Genevieve Wu on 08-01-2024 MCH (RBC) [Entitic mass] 25.6 pg Low 27.0-32.0 [facility] Mean corpuscular hemoglobin concentration (MCHC) determinationOrdered By: Genevieve Wu on 08-01-2024 MCHC (RBC) [Mass/Vol] 29.2 g/dL Low 32-36 [facility] Mean platelet volume determi nationOrdered By: Genevieve Wu on 08-01-2024 Platelet mean volume (Bld) [Entitic vol] 9.0 fL 6.2-12.0 [facility] Monocyte percentageOrdered B y: Genevieve Wu on 08-01-2024 Monocytes/100 WBC (Bld) 14.2 % High 0-10 [facility] Neutrophil percentageOrdered By: Genevieve Wu on 08-01-2024 Neutrophils/100 WBC (Bld) 53.6 % 47-70 [facility] Nucleated red blood cell per centageOrdered By: Genevieve Wu on 08-01-2024 Nucleated RBC/100 WBC (Bld) [Ratio] 0 % 0-5 [facility] Platelet countOrdered By: Abe Wu on 08-01-2024 Platelets (Bld) [#/Vol] 408 10*3/uL 150-450 [facility] Potassium measurementOrdered By: Genevieve Wu on 08-01-2024 Potassium [Moles/Vol] 4.1 mmol/L 3.5-5.1 [facility] RBC Auto (Bld) [#/Vol]Ordere d By: Genevieve Wu on 08-01-2024 RBC (Bld) [#/Vol] 4.46 10*6/uL 4.2-5.4 [facility] Serum anion gap measurementO rdered By: Genevieve Wu on 08-01-2024 Anion gap [Moles/Vol] 6 mmol/L 5-15 [facility] Serum or plasma calcium candice urement (mass/volume)Ordered By: Genevieve Wu on 08-01-2024 Calcium [Mass/Vol] 10.1 mg/dL 8.5-10.1 [facility] Serum or plasma creatinine m easurement (mass/volume)Ordered By: Genevieve Wu on 08-01-2024 Creatinine [Mass/Vol] 1.02 mg/dL 0.55-1.02 [facility] Comment on above: The validity of the calculated GFR & GFRAA in patients over 70 years has not been determined. Clinical correlation is essential. Serum or plasma urea nitroge n measurement (mass/volume)Ordered By: Genevieve Wu on 08-01-2024 Urea nitrogen [Mass/Vol] 21 mg/dL High 7-18 [facility] Sodium levelOrdered By: Gerardo Wu on 08-01-2024 Sodium [Moles/Vol] 139 mmol/L 136-145 [facility] White blood cell (WBC) count Ordered By: Genevieve Wu on 08-01-2024 WBC (Bld) [#/Vol] 7.7 10*3/uL 4.4-11.0 [facility] Neurology Visit Reporton Neurology Visit Report Normal [facility] Absolute lymphocyte countOrd ered By: Genevieve Wu on 06-30-2024 Lymphocytes Auto (Unsp spec) [#/Vol] 1.62 10*3/uL 0.83-4.51 [facility] Absolute neutrophil countOrd ered By: Genevieve Wu on 06-30-2024 Neutrophils (Bld) [#/Vol] 4.2 10*3/uL 2.0-7.7 [facility] Automated lymphocyte count a s percentage of total leukocytesOrdered By: Genevieve Wu on 06-30-2024 Lymphocytes/100 WBC Auto (Unsp spec) 22.7 % 19-41 [facility] Basophil percentageOrdered B y: Genevieve Wu on 06-30-2024 Basophils/100 WBC (Bld) 0.6 % 0-1 [facility] Blood urea nitrogen (BUN)/cr eatinine ratioOrdered By: Genevieve Wu on 06-30-2024 Urea nitrogen/Creatinine [Mass ratio] 27.1 mg/mg High 10-20 [facility] Carbon dioxide measurementOr dered By: Genevieve Wu on 06-30-2024 CO2 [Moles/Vol] 29.0 mmol/L 21.0-32.0 [facility] Chloride measurementOrdered By: Genevieve Wu on 06-30-2024 Chloride [Moles/Vol] 106 mmol/L 98-107 [facility] Eosinophil percentageOrdered By: Genevieve Wu on 06-30-2024 Eosinophils/100 WBC (Bld) 3.2 % 0-5 [facility] Erythrocyte distribution wid th ratioOrdered By: haseeb Wu on 06-30-2024 Erythrocyte distribution width (RBC) [Ratio] 15.3 % High 11.6-14.6 [facility] Erythrocyte distribution wid th standard deviationOrdered By: Genevieve Wu on 06-30-2024 Erythrocyte distribution width (RBC) [Ratio] 47.4 fl High 35.1-43.9 [facility] Glomerular filtration rate ( GFR) estimationOrdered By: Genevieve Wu on 06-30-2024 GFR/1.73 sq M.predicted among non-blacks MDRD (S/P/Bld) [Vol rate/Area] 65 mL/min/{1.73_m2} >60 [facility] Comment on above: Non- GFR Calc Glucose measurementOrdered B y: Genevieve Wu on 06-30-2024 Glucose [Mass/Vol] 87 mg/dL 74-106 [facility] Hematocrit Auto (Bld) [Volum e fraction]Ordered By: Genevieve Wu on 06-30-2024 Hematocrit (Bld) [Volume fraction] 32.5 % Low 37-47 [facility] Hemoglobin measurementOrdere d By: Genevieve Wu on 06-30-2024 Hemoglobin (Bld) [Mass/Vol] 9.6 g/dL Low 12.0-15.0 [facility] Immature granulocytes/100 WB C Auto (Bld)Ordered By: Genevieve Wu on 06-30-2024 Immature granulocytes/100 WBC (Bld) 0.800 % 0.0-0.9 [facility] Comment on above: IG% - Immature Granu locytes (promyelocytes, myelocytes and metamyelocytes) > 1% indicates that a LEFT SHIFT is Present. MCV (mean corpuscular volume ) determinationOrdered By: Genevieve Wu on 06-30-2024 MCV (RBC) [Entitic vol] 87.1 fL 81-99 [facility] Mean corpuscular hemoglobin (MCH) determinationOrdered By: Genevieve Wu on 06-30-2024 MCH (RBC) [Entitic mass] 25.7 pg Low 27.0-32.0 [facility] Mean corpuscular hemoglobin concentration (MCHC) determinationOrdered By: Genevieve Wu on 06-30-2024 MCHC (RBC) [Mass/Vol] 29.5 g/dL Low 32-36 [facility] Mean platelet volume determi nationOrdered By: Genevieve Wu on 06-30-2024 Platelet mean volume (Bld) [Entitic vol] 8.8 fL 6.2-12.0 [facility] Monocyte percentageOrdered B y: Genevieve Wu on 06-30-2024 Monocytes/100 WBC (Bld) 13.4 % High 0-10 [facility] Neutrophil percentageOrdered By: Genevieve Wu on 06-30-2024 Neutrophils/100 WBC (Bld) 59.3 % 47-70 [facility] Nucleated red blood cell per centageOrdered By: Genevieve Wu on 06-30-2024 Nucleated RBC/100 WBC (Bld) [Ratio] 0 % 0-5 [facility] Platelet countOrdered By: Abe Wu on 06-30-2024 Platelets (Bld) [#/Vol] 420 10*3/uL 150-450 [facility] Potassium measurementOrdered By: Genevieve Waynechey on 06-30-2024 Potassium [Moles/Vol] 4.3 mmol/L 3.5-5.1 [facility] RBC Auto (Bld) [#/Vol]Ordere d By: Genevieve Waynechey on 06-30-2024 RBC (Bld) [#/Vol] 3.73 10*6/uL Low 4.2-5.4 [facility] Serum anion gap measurementO rdered By: Genevieve Waynechey on 06-30-2024 Anion gap [Moles/Vol] 5 mmol/L 5-15 [facility] Serum or plasma calcium candice urement (mass/volume)Ordered By: Gerardokarleysharon Blackjuanitadrew on 06-30-2024 Calcium [Mass/Vol] 9.2 mg/dL 8.5-10.1 [facility] Serum or plasma creatinine m easurement (mass/volume)Ordered By: Gerardodion Waynejuanitadrew on 06-30-2024 Creatinine [Mass/Vol] 0.89 mg/dL 0.55-1.02 [facility] Comment on above: The validity of the calculated GFR & GFRAA in patients over 70 years has not been determined. Clinical correlation is essential. Serum or plasma urea nitroge n measurement (mass/volume)Ordered By: Gerardokarleysharon Blackjuanitadrew on 06-30-2024 Urea nitrogen [Mass/Vol] 24 mg/dL High 7-18 [facility] Sodium levelOrdered By: Gerardo ashley Waynejuanitadrew on 06-30-2024 Sodium [Moles/Vol] 140 mmol/L 136-145 [facility] White blood cell (WBC) count Ordered By: Genevieve Waynechey on 06-30-2024 WBC (Bld) [#/Vol] 7.2 10*3/uL 4.4-11.0 [facility] ANCAon 06-16-2024 Atypical pANCA <1:20 Normal Neg:<1:20 [facility] Comment on above: Order Comment: PT. R EFUSED BLOOD DRAW. SON ASKED IF ID COME BACK LATER. Result Comment: The atypical pANCA pattern has been observed in asignificant percentage of patients with ulcerative colitis,primary sclerosing cholangitis and autoimmune hepatitis. Performed By: #### L 4600.0100, L505.7010, L3100.5450, L3300.1200, L3500.3600 ####[facility] [address] [place], [address] Cytoplasmic Ab <1:20 Normal Neg:<1:20 [facility] Comment on above: Order Comment: PT. R EFUSED BLOOD DRAW. SON ASKED IF ID COME BACK LATER. Performed By: #### L 4600.0100, L505.7010, L3100.5450, L3300.1200, L3500.3600 ####[facility] [address] [place], [address] Perinuclear Ab. <1:20 Normal Neg:<1:20 [facility] Comment on above: Order Comment: PT. [...] up testing of positive sera with both CA-3 and MPO-ANCA enzyme immunoassays. As many as 5% serumsamples are positive only by EIA. Ref. AM J Clin Gfubdc9828;111:507-513. Performed By: #### L 4600.0100, L505.7010, L3100.5450, L3300.1200, L3500.3600 ####[facility] [address] [place], [address] Aspergillus Antibodieson Asp. flavus Negative Normal Neg:<1:1 [facility] Comment on above: Order Comment: PT. R EFUSED BLOOD DRAW. SON ASKED IF ID COME BACK LATER. Performed By: #### L 4600.0100, L505.7010, L3100.5450, L3300.1200, L3500.3600 ####[facility] [address] [place], [address] Asp. fumigatus Negative Normal Neg:<1:1 [facility] Comment on above: Order Comment: PT. R EFUSED BLOOD DRAW. SON ASKED IF ID COME BACK LATER. Performed By: #### L 4600.0100, L505.7010, L3100.5450, L3300.1200, L3500.3600 ####[facility] [address] [place], [address] Asp. niger Negative Normal Neg:<1:1 [facility] Comment on above: Order Comment: PT. R EFUSED BLOOD DRAW. SON ASKED IF ID COME BACK LATER. Performed By: #### L 4600.0100, L505.7010, L3100.5450, L3300.1200, L3500.3600 ####[facility] [address] [place], [address] CCP IgG Antibodieson 025 CCP IgG Ab. 8 units Normal 0-19 [facility] Comment on above: Order Comment: PT. R EFUSED BLOOD DRAW. SON ASKED IF ID COME BACK LATER. Result Comment: Nega tive <20 Weak positive 20 - 39 Moderate positive 40 - 59 Strong positive >59Performed at: [facility] [address] [id number] Director: Curtis Rubio PhD, Phone: [phone] at: [facility] [address] [id number] Director: Angie Moulton MD, Phone: [phone] Performed By: #### L 4600.0100, L505.7010, L3100.5450, L3300.1200, L3500.3600 ####[facility] [address] [place], [address] Basic Metabolic Profile (BMP )on 06-15-2024 BUN Normal 7-18 [facility] Comment on above: Result Comment: Canc elled via OM: Order cancelled - Patient discharged Performed By: #### L 100.0100, L500.2500 ####[facility] [address] [place], [address] BUN/CRE Normal 10-20 [facility] Comment on above: Result Comment: Canc elled via OM: Order cancelled - Patient discharged Performed By: #### L 100.0100, L500.2500 ####[facility] [address] [place], [address] CA,Total Normal 8.5-10.1 [facility] Comment on above: Result Comment: Canc elled via OM: Order cancelled - Patient discharged Performed By: #### L 100.0100, L500.2500 ####[facility] [address] [place], [address] CL Normal 98-107 [facility] Comment on above: Result Comment: Canc elled via OM: Order cancelled - Patient discharged Performed By: #### L 100.0100, L500.2500 ####[facility] [address] [place], [address] CO2 Normal 21.0-32.0 [facility] Comment on above: Result Comment: Canc elled via OM: Order cancelled - Patient discharged Performed By: #### L 100.0100, L500.2500 ####[facility] [address] [place], [address] CREAT,SERUM Normal 0.55-1.02 [facility] Comment on above: Result Comment: Canc elled via OM: Order cancelled - Patient discharged Performed By: #### L 100.0100, L500.2500 ####[facility] [address] [place], [address] EST GFR Normal >60 [facility] Comment on above: Result Comment: Canc elled via OM: Order cancelled - Patient discharged Performed By: #### L 100.0100, L500.2500 ####[facility] [address] [place], [address] EST GFR - AA Normal >60 [facility] Comment on above: Result Comment: Canc elled via OM: Order cancelled - Patient discharged Performed By: #### L 100.0100, L500.2500 ####[facility] [address] [place], [address] GAP Normal 5-15 [facility] Comment on above: Result Comment: Canc elled via OM: Order cancelled - Patient discharged Performed By: #### L 100.0100, L500.2500 ####[facility] [address] [place], [address] GLU Normal 74-106 [facility] Comment on above: Result Comment: Canc elled via OM: Order cancelled - Patient discharged Performed By: #### L 100.0100, L500.2500 ####[facility] [address] [place], [address] Potassium Normal 3.5-5.1 [facility] Comment on above: Result Comment: Canc elled via OM: Order cancelled - Patient discharged Performed By: #### L 100.0100, L500.2500 ####[facility] [address] [place], [address] Basic Metabolic Profile (BMP) Normal 136-145 [facility] Comment on above: Result Comment: Canc elled via OM: Order cancelled - Patient discharged Performed By: #### L 100.0100, L500.2500 ####[facility] [address] [place], [address] CBC W/Diff, Automatedon 01-0 -2024 Absolute Neut Normal 2.0-7.7 [facility] Comment on above: Result Comment: Canc elled via OM: Order cancelled - Patient discharged Performed By: #### L 100.0100, L500.2500 ####[facility] [address] [place], [address] HCT Normal 37-47 [facility] Comment on above: Result Comment: Canc elled via OM: Order cancelled - Patient discharged Performed By: #### L 100.0100, L500.2500 ####[facility] [address] [place], [address] HGB Normal 12.0-15.0 [facility] Comment on above: Result Comment: Canc elled via OM: Order cancelled - Patient discharged Performed By: #### L 100.0100, L500.2500 ####[facility] [address] [place], [address] MCH Normal 27.0-32.0 [facility] Comment on above: Result Comment: Canc elled via OM: Order cancelled - Patient discharged Performed By: #### L 100.0100, L500.2500 ####[facility] [address] [place], [address] MCHC Normal 32-36 [facility] Comment on above: Result Comment: Canc elled via OM: Order cancelled - Patient discharged Performed By: #### L 100.0100, L500.2500 ####[facility] [address] [place], [address] MCV Normal 81-99 [facility] Comment on above: Result Comment: Canc elled via OM: Order cancelled - Patient discharged Performed By: #### L 100.0100, L500.2500 ####[facility] [address] [place], [address] NEUT% Normal 47-70 [facility] Comment on above: Result Comment: Canc elled via OM: Order cancelled - Patient discharged Performed By: #### L 100.0100, L500.2500 ####[facility] [address] [place], [address] PLT Normal 150-450 [facility] Comment on above: Result Comment: Canc elled via OM: Order cancelled - Patient discharged Performed By: #### L 100.0100, L500.2500 ####[facility] [address] [place], [address] RBC Normal 4.2-5.4 [facility] Comment on above: Result Comment: Canc elled via OM: Order cancelled - Patient discharged Performed By: #### L 100.0100, L500.2500 ####[facility] [address] [place], [address] RDW CV Normal 11.6-14.6 [facility] Comment on above: Result Comment: Canc elled via OM: Order cancelled - Patient discharged Performed By: #### L 100.0100, L500.2500 ####[facility] [address] [place], [address] RDW SD Normal 35.1-43.9 [facility] Comment on above: Result Comment: Canc elled via OM: Order cancelled - Patient discharged Performed By: #### L 100.0100, L500.2500 ####[facility] [address] [place], [address] WBC Normal 4.4-11.0 [facility] Comment on above: Result Comment: Canc elled via OM: Order cancelled - Patient discharged Performed By: #### L 100.0100, L500.2500 ####[facility] [address] [place], [address] Basic Metabolic Profile (BMP )on 06-14-2024 BUN/CRE 22.1 RATIO High 10-20 [facility] Comment on above: Performed By: #### L 100.0100, L500.2500 ####[facility] [address] [place], [address] CA,Total 9.2 mg/dL Normal 8.5-10.1 [facility] Comment on above: Performed By: #### L 100.0100, L500.2500 ####[facility] [address] [place], [address] Chloride [Moles/Vol] 104 mmol/L Normal 98-107 [facility]; [facility] Work Phone: Comment on above: Performed By: #### L 100.0100, L500.2500 ####[facility] [address] [place], [address] CO2 [Moles/Vol] 29.0 mmol/L Normal 21.0-32.0 [facility]; [facility] Work Phone: Comment on above: Performed By: #### L 100.0100, L500.2500 ####[facility] [address] [place], [address] Creatinine [Mass/Vol] 0.95 mg/dL Normal 0.55-1.02 [facility]; [facility] Work Phone: Comment on above: Result Comment: The validity of the calculated GFR GFRAA in patients over70 years has not been determined. Clinical correlation isessential. Performed By: #### L 100.0100, L500.2500 ####[facility] [address] [place], [address] ECRCL 32.19 ml/min Normal [facility]; [facility] Work Phone: Comment on above: Performed By: #### L 100.0100, L500.2500 ####[facility] [address] [place], [address] EST GFR - AA 72 mL/min Normal >60 [facility].; [facility] Work Phone: Comment on above: Result Comment: Afri can Polish GFR Calc Performed By: #### L 100.0100, L500.2500 ####[facility] [address] [place], [address] GAP 4 Low 5-15 [facility]; [facility] Work Phone: Comment on above: Performed By: #### L 100.0100, L500.2500 ####[facility] [address] [place], [address] GFR/1.73 sq M.predicted among non-blacks MDRD (S/P/Bld) [Vol rate/Area] 60 mL/min/{1.73_m2} Normal >60 [facility]; [facility] [employer] [facility] Work Phone: Comment on above: Result Comment: Non- GFR Calc Performed By: #### L 100.0100, L500.2500 ####[facility] [address] [place], [address] Glucose [Mass/Vol] 99 mg/dL Normal 74-106 [facility].; [facility] [employer] [facility] Work Phone: Comment on above: Performed By: #### L 100.0100, L500.2500 ####[facility] [address] [place], [address] Potassium [Moles/Vol] 3.2 mmol/L Low 3.5-5.1 [facility] [employer] [facility]; [facility] [employer] [facility] Work Phone: Comment on above: Performed By: #### L 100.0100, L500.2500 ####[facility] [address] [place], [address] Sodium [Moles/Vol] 137 mmol/L Normal 136-145 [facility]; [facility] Work Phone: Comment on above: Performed By: #### L 100.0100, L500.2500 ####[facility] [address] [place], [address] Urea nitrogen [Mass/Vol] 21 mg/dL High 7-18 [facility]; [facility] Work Phone: Comment on above: Performed By: #### L 100.0100, L500.2500 ####[facility] [address] [place], [address] CBC W/Diff, Automatedon 12-3 Absolute Lymph 1.57 X10 3/uL Normal 0.83-4.51 [facility] Comment on above: Performed By: #### L 100.0100, L500.2500 ####[facility] [address] [place], [address] Absolute Neut 6.5 X10 3/uL Normal 2.0-7.7 [facility] Comment on above: Performed By: #### L 100.0100, L500.2500 ####[facility] [address] [place], [address] Basophils/100 WBC (Bld) 0.3 % Normal 0-1 [facility]; [facility] Work Phone: Comment on above: Performed By: #### L 100.0100, L500.2500 ####[facility] [address] [place], [place], [phone] Eosinophils/100 WBC (Bld) 1.8 % Normal 0-5 [facility]; [facility] Work Phone: Comment on above: Performed By: #### L 100.0100, L500.2500 ####[facility] [address] [place], [place], [phone] Erythrocyte distribution width (RBC) [Ratio] 14.3 % Normal 11.6-14.6 [facility]; [facility] Work Phone: Comment on above: Performed By: #### L 100.0100, L500.2500 ####[facility] [address] [place], [place], [phone] Hematocrit (Bld) [Volume fraction] 34.3 % Low 37-47 [facility]; [facility] [employer] [facility] Work Phone: Comment on above: Performed By: #### L 100.0100, L500.2500 ####[facility] [address] [place], [place], [phone]) Hemoglobin (Bld) [Mass/Vol] 10.4 g/dL Low 12.0-15.0 [facility]; [facility] [employer] [facility] Work Phone: Comment on above: Performed By: #### L 100.0100, L500.2500 ####[facility] [address] [place], [place], [phone] IG% 0.900 Normal 0.0-0.9 [facility]; [facility] [employer] [facility] Work Phone: Comment on above: Result Comment: IG% - Immature Granulocytes (promyelocytes, myelocytes andmetamyelocytes) > 1% indicates that a LEFT SHIFT is Present. Performed By: #### L 100.0100, L500.2500 ####[facility] [address] [place], [address] Lymphocytes/100 WBC (Bld) 16.3 % Low 19-41 [facility]; [facility] Work Phone: Comment on above: Performed By: #### L 100.0100, L500.2500 ####[facility] [address] [place], [address] MCH (RBC) [Entitic mass] 26.0 pg Low 27.0-32.0 [facility]; [facility] Work Phone: Comment on above: Performed By: #### L 100.0100, L500.2500 ####[facility] [address] [place], [address] MCHC (RBC) [Mass/Vol] 30.3 g/dL Low 32-36 [facility]; [facility] Work Phone: Comment on above: Performed By: #### L 100.0100, L500.2500 ####[facility] [address] [place], [address] MCV (RBC) [Entitic vol] 85.8 fL Normal 81-99 [facility]; [facility] Work Phone: Comment on above: Performed By: #### L 100.0100, L500.2500 ####[facility] [address] [place], [address] Monocytes/100 WBC (Bld) 13.2 % High 0-10 [facility].; [facility], [facility] Work Phone: Comment on above: Performed By: #### L 100.0100, L500.2500 ####[facility] [address] [place], [place], [phone]) Neutrophils/100 WBC (Bld) 67.5 % Normal 47-70 [facility].; [facility] Work Phone: Comment on above: Performed By: #### L 100.0100, L500.2500 ####[facility] [address] [place], [place], [phone] Nucleated RBC (Bld) [#/Vol] 0 10*3/uL Normal 0-5 [facility].; [facility] Work Phone: Comment on above: Performed By: #### L 100.0100, L500.2500 ####[facility] [address] [place], [place], [phone]) Platelet mean volume (Bld) [Entitic vol] 8.7 fL Normal 6.2-12.0 [facility]; [facility] Work Phone: Comment on above: Performed By: #### L 100.0100, L500.2500 ####[facility] [address] [place], [address] Platelets (Bld) [#/Vol] 401 10*3/uL Normal 150-450 [facility].; [facility], [facility]. Work Phone: Comment on above: Performed By: #### L 100.0100, L500.2500 ####[facility] [address] [place], [place], [phone] RBC (Bld) [#/Vol] 4.00 10*6/uL Low 4.2-5.4 [facility]; [facility] Work Phone: Comment on above: Performed By: #### L 100.0100, L500.2500 ####[facility] [address] [place], [address] RDW SD 44.6 fL High 35.1-43.9 [facility]; [facility] Work Phone: Comment on above: Performed By: #### L 100.0100, L500.2500 ####[facility] [address] [place], [address] WBC (Bld) [#/Vol] 9.6 10*3/uL Normal 4.4-11.0 [facility]; [facility] [employer] [facility] Work Phone: Comment on above: Performed By: #### L 100.0100, L500.2500 ####[facility] [address] [place], [address] Laboratory - Chemistry and C hemistry - challengeon 06-14-2024 Magnesium [Mass/Vol] 9.2 mg/dL Normal 8.5 - 1 0.1 mg/dL [facility]; [facility]. Work Phone: No Panel Informationon 06-14 Absolute Lymph 1.57 {X10_3/uL} Normal 0.83 - 4.51 {X10_3/uL} [facility]; [facility] [employer] [facility] Work Phone: Absolute Neut 6.5 {X10_3/uL} Normal 2.0 - 7.7 {X10_3/uL} [facility] [employer] [facility]. Work Phone: BUN/CRE 22.1 {RATIO} Abnormal 10 - 20 {RATIO} [facility].; [facility]. Work Phone: MICHAEL w/ Reflex Mult Confirmon 06-13-2024 MICHAEL TABLE TNP Normal [facility] Comment on above: Order Comment: PT. R EFUSED BLOOD DRAW. SON ASKED IF ID COME BACK LATER. Performed By: #### L 4600.0100, L505.7010, L3100.5450, L3300.1200, L3500.3600 ####[facility] [address] [place], [address] 12 Lead EKGon 06-11-2024 12 Lead EKG Normal [facility] L501.4020on 06-11-2024 TROPONIN-I HS 25 pg/mL Normal 3.0-54.0 [facility].; [facility] [employer] [facility]. Work Phone: Comment on above: Order Comment: 'TROP ' Serial specimen #1, #2 or #3: 3 Result Comment: Plea se Note: New Test Units and Gender Specific Reference Ranges. For more information see Policy Stat Procedure [place] High Sensitivity Troponin (TNIH) and attachments. Performed By: #### L 501.4020 ####[facility] [address] [place], [address] TROPONIN-I HS 21 pg/mL Normal 3.0-54.0 [facility].; [facility]. Work Phone: Comment on above: Order Comment: 'TROP ' Serial specimen #1, #2 or #3: 2 Result Comment: Plea se Note: New Test Units and Gender Specific Reference Ranges. For more information see Policy Stat Procedure [place] High Sensitivity Troponin (TNIH) and attachments. Performed By: #### L 501.4020 ####[facility] [address] [place], [place], [address] TROPONIN-I HS 23 pg/mL Normal 3.0-54.0 [facility].; [facility]. Work Phone: Comment on above: Order Comment: 'TROP ' Serial specimen #1, #2 or #3: 1 Result Comment: Plea se Note: New Test Units and Gender Specific Reference Ranges. For more information see Policy Stat Procedure [place] High Sensitivity Troponin (TNIH) and attachments. Performed By: #### L 501.4020 ####[facility] [address] [place], [place], [address] No Panel Informationon 06-10 MICHAEL TABLE Normal [facility].; [facility]. Work Phone: MICHAEL,DIRECT Negative Normal [facility].; [facility], [facility]. Work Phone: ANTI-CENT B AB Normal [facility].; [facility], [facility]. Work Phone: ANTI-DNA (DS)AB Normal [facility].; [facility]. Work Phone: ANTI-JULIA-1 Normal [facility].; [facility], [facility]. Work Phone: ANTI-SS-A Normal [facility].; [facility], [facility]. Work Phone: ANTI-SS-B [facility].; [facility], [facility]. Work Phone: ANTICHROMATIN Normal [facility].; [facility], [facility]. Work Phone: ANTISCLERODERM Normal [facility].; [facility] Work Phone: Asp. flavus Negative [facility].; [facility], [facility]. Work Phone: Asp. fumigatus Negative [facility].; [facility], [facility]. Work Phone: Asp. niger Negative [facility].; [facility], [facility]. Work Phone: Atypical pANCA <1:20 [facility].; [facility], [facility]. Work Phone: CCP IgG Ab. 8 {units} Normal 0 - 19 {units} [facility].; [facility], [facility]. Work Phone: Cytoplasmic Ab <1:20 [facility].; [facility], [facility]. Work Phone: Perinuclear Ab. <1:20 [facility].; [facility], [facility]. Work Phone: ASSISTANT FACILITY MANAGER Ab Normal [facility].; [facility], [facility]. Work Phone: CORTES Ab [facility] [employer] [facility].; [facility], [facility]. Work Phone: Quantiferon TB-Gold+on 06-10 QFT MITOGEN SARAH > 10.00 Normal . [facility] Comment on above: Performed By: #### L 3400.8000 ####[facility] [address] [place], [address] QFT NIL VALUE 0.08 IU/mL Normal . [facility] Comment on above: Performed By: #### L 3400.8000 ####[facility] [address] [place], [place], [phone] QFT TB GOLD+ Comment Normal . [facility] Comment on above: Result Comment: Sarmad [...] the test. Performed By: #### L 3400.8000 ####[facility] [address] [place], [address] QFT TB POS CRIT Negative Normal Negative [facility] Comment on above: Result Comment: No [...] the productionof interferon gamma. Chemiluminescence immunoassaymethodologyPerformed at: [facility] [address] [id number] Director: Curtis Rubio PhD, Phone: [phone] Performed By: #### L 3400.8000 ####[facility] [address] [place], [address] QFT TB1+ AG SARAH 0.08 IU/mL Normal . [facility] Comment on above: Performed By: #### L 3400.8000 ####[facility] [address] [place], [place], [address] QFT TB2+ AG SARAH 0.08 IU/mL Normal . [facility] Comment on above: Performed By: #### L 3400.8000 ####[facility] [address] [place], [place], [id number] Rheumatoid Factoron 06-10-20 24 RHEUMATOID FAC < 10.0 Normal <15 [facility]; [employer] [facility] Work Phone: Comment on above: Order Comment: PT. R EFUSED BLOOD DRAW. SON ASKED IF ID COME BACK LATER.PT REFUSED BLOOD DRAW AT NOON. NURSE WAS INFORMED WILL ADDTO AM DRAW. Performed By: #### L 4600.0100, L505.7010, L3100.5450, L3300.1200, L3500.3600 ####[facility] [address] [place], [place], [id number] Consultation - Intensiviston 06-09-2024 Consultation - Notched Blade Loader Normal [facility] Basic Metabolic Profile (BMP )on 06-08-2024 BUN/CRE 17.3 RATIO Normal 04-03 [facility] Comment on above: Performed By: #### L 501.5200, L300.3900, L501.2300, L500.2500, L100.0100, L501.9520, L500.3400, L500.4050 ####[facility] [address] [place], [place], [id number] CA,Total 8.6 mg/dL Normal 8.5-10.1 [facility] Comment on above: Performed By: #### L 501.5200, L300.3900, L501.2300, L500.2500, L100.0100, L501.9520, L500.3400, L500.4050 ####[facility] [address] [place], [place], [phone] Chloride [Moles/Vol] 105 mmol/L Normal 98-107 [facility]; [facility] Work Phone: Comment on above: Performed By: #### L 501.5200, L300.3900, L501.2300, L500.2500, L100.0100, L501.9520, L500.3400, L500.4050 ####[facility] [address] [place], [place], [id number] CO2 [Moles/Vol] 27.0 mmol/L Normal 21.0-32.0 [facility]; [facility] Work Phone: Comment on above: Performed By: #### L 501.5200, L300.3900, L501.2300, L500.2500, L100.0100, L501.9520, L500.3400, L500.4050 ####[facility] [address] [place], [address] Creatinine [Mass/Vol] 0.75 mg/dL Normal 0.55-1.02 [facility]; [facility] Work Phone: Comment on above: Result Comment: The validity of the calculated GFR GFRAA in patients over70 years has not been determined. Clinical correlation isessential. Performed By: #### L 501.5200, L300.3900, L501.2300, L500.2500, L100.0100, L501.9520, L500.3400, L500.4050 ####[facility] [address] [place], [address] ECRCL 38.23 ml/min Normal [facility]; [facility] Work Phone: Comment on above: Performed By: #### L 501.5200, L300.3900, L501.2300, L500.2500, L100.0100, L501.9520, L500.3400, L500.4050 ####[facility] [address] [place], [place], [phone] EST GFR - AA 94 mL/min Normal >60 [facility]; [facility] Work Phone: Comment on above: Result Comment: Afri can Polish GFR Calc Performed By: #### L 501.5200, L300.3900, L501.2300, L500.2500, L100.0100, L501.9520, L500.3400, L500.4050 ####[facility] [address] [place], [place], [phone] GAP 6 Normal 5-15 [facility]; [facility] Work Phone: Comment on above: Performed By: #### L 501.5200, L300.3900, L501.2300, L500.2500, L100.0100, L501.9520, L500.3400, L500.4050 ####[facility] [address] [place], [place], [phone] GFR/1.73 sq M.predicted among non-blacks MDRD (S/P/Bld) [Vol rate/Area] 78 mL/min/{1.73_m2} Normal >60 [facility]; [facility] Work Phone: Comment on above: Result Comment: Non- GFR Calc Performed By: #### L 501.5200, L300.3900, L501.2300, L500.2500, L100.0100, L501.9520, L500.3400, L500.4050 ####[facility] [address] [facility] [place], [place], [phone] Glucose [Mass/Vol] 84 mg/dL Normal 74-106 [facility]; [facility] Work Phone: Comment on above: Performed By: #### L 501.5200, L300.3900, L501.2300, L500.2500, L100.0100, L501.9520, L500.3400, L500.4050 ####[facility] Pvitricajz1672 [facility] [place], [place], [phone] Potassium [Moles/Vol] 3.6 mmol/L Normal 3.5-5.1 [facility]; [facility] Work Phone: Comment on above: Performed By: #### L 501.5200, L300.3900, L501.2300, L500.2500, L100.0100, L501.9520, L500.3400, L500.4050 ####[facility] [address] [facility] [address] [place], [place], [phone] Sodium [Moles/Vol] 138 mmol/L Normal 136-145 [facility]; [facility] Work Phone: Comment on above: Performed By: #### L 501.5200, L300.3900, L501.2300, L500.2500, L100.0100, L501.9520, L500.3400, L500.4050 ####[facility] [address]99 [facility] [place], [place], [phone] Urea nitrogen [Mass/Vol] 13 mg/dL Normal 7-18 [facility]; [facility] Work Phone: Comment on above: Performed By: #### L 501.5200, L300.3900, L501.2300, L500.2500, L100.0100, L501.9520, L500.3400, L500.4050 ####[facility] [address] [place], [place], [phone] CBC W/Diff, Automatedon 12-2 Absolute Lymph 1.28 X10 3/uL Normal 0.83-4.51 [facility] Comment on above: Performed By: #### L 501.5200, L300.3900, L501.2300, L500.2500, L100.0100, L501.9520, L500.3400, L500.4050 ####[facility] [address] [place], [place], [phone]) Absolute Neut 3.9 X10 3/uL Normal 2.0-7.7 [facility] Comment on above: Performed By: #### L 501.5200, L300.3900, L501.2300, L500.2500, L100.0100, L501.9520, L500.3400, L500.4050 ####[facility] [address] [facility] [place], [place], [phone] Basophils/100 WBC (Bld) 0.3 % Normal 0-1 [facility]; [facility]410 Labs QAGAN TAYAGUNGIN [employer] [facility] [employer] [facility] Work Phone: Comment on above: Performed By: #### L 501.5200, L300.3900, L501.2300, L500.2500, L100.0100, L501.9520, L500.3400, L500.4050 ####[facility] [address] [facility] [place], [place], [phone]) Eosinophils/100 WBC (Bld) 3.2 % Normal 0-5 [facility] [employer] [facility]; [facility] [employer] [facility] Work Phone: Comment on above: Performed By: #### L 501.5200, L300.3900, L501.2300, L500.2500, L100.0100, L501.9520, L500.3400, L500.4050 ####[facility] [address] [place], [place], [phone] Erythrocyte distribution width (RBC) [Ratio] 14.4 % Normal 11.6-14.6 [facility]; [facility] Work Phone: Comment on above: Performed By: #### L 501.5200, L300.3900, L501.2300, L500.2500, L100.0100, L501.9520, L500.3400, L500.4050 ####[facility] [address] [place], [place], [phone] Hematocrit (Bld) [Volume fraction] 31.3 % Low 37-47 [facility]; [facility] Work Phone: Comment on above: Performed By: #### L 501.5200, L300.3900, L501.2300, L500.2500, L100.0100, L501.9520, L500.3400, L500.4050 ####[facility] [address] [place], [place], [phone] Hemoglobin (Bld) [Mass/Vol] 9.4 g/dL Low 12.0-15.0 [facility]; [facility] Work Phone: Comment on above: Performed By: #### L 501.5200, L300.3900, L501.2300, L500.2500, L100.0100, L501.9520, L500.3400, L500.4050 ####[facility] [address] [place], [address] IG% 1.000 High 0.0-0.9 [facility]; [facility] Work Phone: Comment on above: Result Comment: IG% - Immature Granulocytes (promyelocytes, myelocytes andmetamyelocytes) > 1% indicates that a LEFT SHIFT is Present. Performed By: #### L 501.5200, L300.3900, L501.2300, L500.2500, L100.0100, L501.9520, L500.3400, L500.4050 ####[facility] [address] [place], [address] Lymphocytes/100 WBC (Bld) 20.7 % Normal 19-41 [facility]; [facility] Work Phone: Comment on above: Performed By: #### L 501.5200, L300.3900, L501.2300, L500.2500, L100.0100, L501.9520, L500.3400, L500.4050 ####[facility] [address] [place], [address] MCH (RBC) [Entitic mass] 25.5 pg Low 27.0-32.0 [facility]; [facility] Work Phone: Comment on above: Performed By: #### L 501.5200, L300.3900, L501.2300, L500.2500, L100.0100, L501.9520, L500.3400, L500.4050 ####[facility] [address] [place], [address] MCHC (RBC) [Mass/Vol] 30.0 g/dL Low 32-36 [facility]; [facility] Work Phone: Comment on above: Performed By: #### L 501.5200, L300.3900, L501.2300, L500.2500, L100.0100, L501.9520, L500.3400, L500.4050 ####[facility] [address] [place], [place], [phone] MCV (RBC) [Entitic vol] 84.8 fL Normal 81-99 [facility]; [facility] [employer] [facility] Work Phone: Comment on above: Performed By: #### L 501.5200, L300.3900, L501.2300, L500.2500, L100.0100, L501.9520, L500.3400, L500.4050 ####[facility] [address] [place], [place], [phone] Monocytes/100 WBC (Bld) 12.0 % High 0-10 [facility]; [facility] Work Phone: Comment on above: Performed By: #### L 501.5200, L300.3900, L501.2300, L500.2500, L100.0100, L501.9520, L500.3400, L500.4050 ####[facility] [address] [place], [place], [phone]) Neutrophils/100 WBC (Bld) 62.8 % Normal 47-70 [facility]; [facility] Work Phone: Comment on above: Performed By: #### L 501.5200, L300.3900, L501.2300, L500.2500, L100.0100, L501.9520, L500.3400, L500.4050 ####[facility] Uxvlksshbv35[address] [facility] [place], [place], [phone] Nucleated RBC (Bld) [#/Vol] 0 10*3/uL Normal 0-5 [facility]; [facility] [employer] [facility] Work Phone: Comment on above: Performed By: #### L 501.5200, L300.3900, L501.2300, L500.2500, L100.0100, L501.9520, L500.3400, L500.4050 ####[facility] [address] [place], [phone]) Platelet mean volume (Bld) [Entitic vol] 8.9 fL Normal 6.2-12.0 [facility]; [facility] [employer] [facility] Work Phone: Comment on above: Performed By: #### L 501.5200, L300.3900, L501.2300, L500.2500, L100.0100, L501.9520, L500.3400, L500.4050 ####[facility] [address] [place], [place], [phone] Platelets (Bld) [#/Vol] 342 10*3/uL Normal 150-450 [facility]; [facility] [employer] [facility] Work Phone: Comment on above: Performed By: #### L 501.5200, L300.3900, L501.2300, L500.2500, L100.0100, L501.9520, L500.3400, L500.4050 ####[facility] [address] [place], [phone] RBC (Bld) [#/Vol] 3.69 10*6/uL Low 4.2-5.4 [facility]; [facility] Work Phone: Comment on above: Performed By: #### L 501.5200, L300.3900, L501.2300, L500.2500, L100.0100, L501.9520, L500.3400, L500.4050 ####[facility] [address] [facility]. [place], [place], [phone] RDW SD 44.8 fL High 35.1-43.9 [facility]; [facility] Work Phone: Comment on above: Performed By: #### L 501.5200, L300.3900, L501.2300, L500.2500, L100.0100, L501.9520, L500.3400, L500.4050 ####[facility] Hqbpltvyum0648 [place], [address] WBC (Bld) [#/Vol] 6.2 10*3/uL Normal 4.4-11.0 [facility]; [facility] [employer] [facility] Work Phone: Comment on above: Performed By: #### L 501.5200, L300.3900, L501.2300, L500.2500, L100.0100, L501.9520, L500.3400, L500.4050 ####[facility] [address]2170 [facility] [place], [place], [phone] Comprehensive Metabolic Prof [facility] 06-08-2024 Albumin/Globulin [Mass ratio] 0.7 {ratio} Low 0.9-2.4 [facility]; [facility] Work Phone: Comment on above: Performed By: #### L 501.5200, L300.3900, L501.2300, L500.2500, L100.0100, L501.9520, L500.3400, L500.4050 ####[facility] [address] [place], [place], [phone] Laboratory - Chemistry and C hemistry - challengeon 06-08-2024 Magnesium [Mass/Vol] 8.6 mg/dL Normal 8.5 - 1 0.1 mg/dL [facility]; [facility] Work Phone: Liver Profileon 06-08-2024 Albumin [Mass/Vol] 2.5 g/dL Low 3.2-5.0 [facility]; [facility] Work Phone: Comment on above: Performed By: #### L 501.5200, L300.3900, L501.2300, L500.2500, L100.0100, L501.9520, L500.3400, L500.4050 ####[facility] [address] [place], [place], [phone] ALK P 96 U/L Normal 45-117 [facility]; [facility] Work Phone: Comment on above: Performed By: #### L 501.5200, L300.3900, L501.2300, L500.2500, L100.0100, L501.9520, L500.3400, L500.4050 ####[facility] [address] [place], [place], [phone] ALT [Catalytic activity/Vol] 17 U/L Normal 13-56 [facility]; [facility] Work Phone: Comment on above: Performed By: #### L 501.5200, L300.3900, L501.2300, L500.2500, L100.0100, L501.9520, L500.3400, L500.4050 ####[facility] [address] [place], [place], [phone] AST [Catalytic activity/Vol] 15 U/L Normal 15-37 [facility]; [facility] Work Phone: Comment on above: Performed By: #### L 501.5200, L300.3900, L501.2300, L500.2500, L100.0100, L501.9520, L500.3400, L500.4050 ####[facility] [address] [place], [place], [phone] Bilirubin [Mass/Vol] 0.30 mg/dL Normal 0.20-1.00 [facility]; [facility] Work Phone: Comment on above: Result Comment: For patients on eltrombopag therapy, use of Dimension [place] TBIL is not recommended. Performed By: #### L 501.5200, L300.3900, L501.2300, L500.2500, L100.0100, L501.9520, L500.3400, L500.4050 ####[facility] [address] [place], [place], [phone] Bilirubin.direct [Mass/Vol] 0.09 mg/dL Normal 0.00-0.30 [facility]; [facility] Work Phone: Comment on above: Performed By: #### L 501.5200, L300.3900, L501.2300, L500.2500, L100.0100, L501.9520, L500.3400, L500.4050 ####[facility] [address] [place], [place], [phone] Globulin (S) [Mass/Vol] 3.4 g/dL Normal 2.2-4.2 [facility].; [facility] [employer] [facility] Work Phone: Comment on above: Performed By: #### L 501.5200, L300.3900, L501.2300, L500.2500, L100.0100, L501.9520, L500.3400, L500.4050 ####[facility] [address] [place], [place], [phone] T PROT 5.9 g/dL Low 6.4-8.2 [facility].; [facility] Work Phone: Comment on above: Performed By: #### L 501.5200, L300.3900, L501.2300, L500.2500, L100.0100, L501.9520, L500.3400, L500.4050 ####[facility] [address] [place], [place], [phone] Magnesiumon 06-08-2024 Magnesium [Mass/Vol] 1.9 mg/dL Normal 1.6-2.6 [facility]; [facility] Work Phone: Comment on above: Performed By: #### L 501.5200, L300.3900, L501.2300, L500.2500, L100.0100, L501.9520, L500.3400, L500.4050 ####[facility] [address] [place], [address] No Panel Informationon 06-08 Absolute Lymph 1.28 {X10_3/uL} Normal 0.83 - 4.51 {X10_3/uL} [facility].; [facility] Work Phone: Absolute Neut 3.9 {X10_3/uL} Normal 2.0 - 7.7 {X10_3/uL} [facility].; [facility]. Work Phone: BUN/CRE 17.3 {RATIO} Normal 10 - 20 {RATIO} [facility].; [facility] [employer] [facility]. Work Phone: QFT MITOGEN SARAH > 10.[address] [facility].; [facility]. Work Phone: QFT NIL VALUE 0.08 {IU/mL} Normal [facility].; [facility]. Work Phone: QFT TB GOLD+ Comment Normal [facility]; [facility]. Work Phone: QFT TB POS CRIT Negative Normal [facility].; [facility] [employer] [facility]. Work Phone: QFT TB1+ AG SARAH 0.08 {IU/mL} Normal [facility].; [facility]. Work Phone: QFT TB2+ AG SARAH 0.08 {IU/mL} Normal [facility].; [facility]. Work Phone: TSH 1.990 {uIU/mL} Normal 0.358 - 3.740 {uIU/mL} [facility].; [facility] [employer] [facility]. Work Phone: Phosphoruson 06-08-2024 Phosphate [Mass/Vol] 3.3 mg/dL Normal 2.5-4.9 [facility].; [facility] [employer] [facility] Work Phone: Comment on above: Performed By: #### L 501.5200, L300.3900, L501.2300, L500.2500, L100.0100, L501.9520, L500.3400, L500.4050 ####[facility] [address] [place], [place], [address] Prothrombin Time w/INRon INR Coag (PPP) [Relative time] 1.1 {INR} Normal [facility]; [facility] Work Phone: Comment on above: Performed By: #### L 501.5200, L300.3900, L501.2300, L500.2500, L100.0100, L501.9520, L500.3400, L500.4050 ####[facility] [address] [place], [place], [phone] PT Coag (PPP) [Time] 13.7 s Normal 11.7-14.9 [facility]; [facility] Work Phone: Comment on above: Performed By: #### L 501.5200, L300.3900, L501.2300, L500.2500, L100.0100, L501.9520, L500.3400, L500.4050 ####[facility] [address] [place], [place], [address] Thyroid Stim Hormone (TSH)on 06-08-2024 TSH 1.990 uIU/mL Normal 0.358-3.74 0 [facility] Comment on above: Performed By: #### L 501.5200, L300.3900, L501.2300, L500.2500, L100.0100, L501.9520, L500.3400, L500.4050 ####[facility] [address] [place], [place], [address] 12 Lead EKGon 06-07-2024 12 Lead EKG Normal [facility] Basic Metabolic Profile (BMP )on 06-07-2024 BUN/CRE 14.4 RATIO Normal 10-20 [facility] Comment on above: Order Comment: 'TROP ' Serial specimen #1, #2 or #3: 1 Performed By: #### L 100.0100, L501.2450, L503.6005, L500.2500, L300.3900, L300.4310, L501.4020, L500.3400 ####[facility] [address] [place], [place], [phone] CA,Total 8.8 mg/dL Normal 8.5-10.1 [facility] Comment on above: Order Comment: 'TROP ' Serial specimen #1, #2 or #3: 1 Performed By: #### L 100.0100, L501.2450, L503.6005, L500.2500, L300.3900, L300.4310, L501.4020, L500.3400 ####[facility] [address] [place], [place], [phone] Chloride [Moles/Vol] 104 mmol/L Normal 98-107 [facility]; [facility] [employer] [facility] Work Phone: Comment on above: Order Comment: 'TROP ' Serial specimen #1, #2 or #3: 1 Performed By: #### L 100.0100, L501.2450, L503.6005, L500.2500, L300.3900, L300.4310, L501.4020, L500.3400 ####[facility] [address] [place], [place], [phone] CO2 [Moles/Vol] 28.0 mmol/L Normal 21.0-32.0 [facility]; [facility] [employer] [facility] Work Phone: Comment on above: Order Comment: 'TROP ' Serial specimen #1, #2 or #3: 1 Performed By: #### L 100.0100, L501.2450, L503.6005, L500.2500, L300.3900, L300.4310, L501.4020, L500.3400 ####[facility] [address] [place], [place], [phone] Creatinine [Mass/Vol] 0.97 mg/dL Normal 0.55-1.02 [facility]; [facility] Work Phone: Comment on above: Order Comment: 'TROP ' Serial specimen #1, #2 or #3: 1 Result Comment: The validity of the calculated GFR GFRAA in patients over70 years has not been determined. Clinical correlation isessential. Performed By: #### L 100.0100, L501.2450, L503.6005, L500.2500, L300.3900, L300.4310, L501.4020, L500.3400 ####[facility] [address] [place], [address] EST GFR - AA 71 mL/min Normal >60 [facility]; [facility] Work Phone: Comment on above: Order Comment: 'TROP ' Serial specimen #1, #2 or #3: 1 Result Comment: Afri can Polish GFR Calc Performed By: #### L 100.0100, L501.2450, L503.6005, L500.2500, L300.3900, L300.4310, L501.4020, L500.3400 ####[facility] [address] [place], [place], [phone] GAP 6 Normal 5-15 [facility]; [facility] Work Phone: Comment on above: Order Comment: 'TROP ' Serial specimen #1, #2 or #3: 1 Performed By: #### L 100.0100, L501.2450, L503.6005, L500.2500, L300.3900, L300.4310, L501.4020, L500.3400 ####[facility] [address] [place], [place], [phone] GFR/1.73 sq M.predicted among non-blacks MDRD (S/P/Bld) [Vol rate/Area] 58 mL/min/{1.73_m2} Low >60 [facility]; [facility] Work Phone: Comment on above: Order Comment: 'TROP ' Serial specimen #1, #2 or #3: 1 Result Comment: Non- GFR Calc Performed By: #### L 100.0100, L501.2450, L503.6005, L500.2500, L300.3900, L300.4310, L501.4020, L500.3400 ####[facility] [address] [place], [place], [phone] Glucose [Mass/Vol] 88 mg/dL Normal 74-106 [facility]; [facility] Work Phone: Comment on above: Order Comment: 'TROP ' Serial specimen #1, #2 or #3: 1 Performed By: #### L 100.0100, L501.2450, L503.6005, L500.2500, L300.3900, L300.4310, L501.4020, L500.3400 ####[facility] [address] [place], [place], [phone] Potassium [Moles/Vol] 4.1 mmol/L Normal 3.5-5.1 [facility]; [facility] Work Phone: Comment on above: Order Comment: 'TROP ' Serial specimen #1, #2 or #3: 1 Result Comment: Slig ht Hemolysis, Result may be falsely increased. Performed By: #### L 100.0100, L501.2450, L503.6005, L500.2500, L300.3900, L300.4310, L501.4020, L500.3400 ####[facility] [address] [place], [place], [phone] Sodium [Moles/Vol] 138 mmol/L Normal 136-145 [facility]; [facility] Work Phone: Comment on above: Order Comment: 'TROP ' Serial specimen #1, #2 or #3: 1 Performed By: #### L 100.0100, L501.2450, L503.6005, L500.2500, L300.3900, L300.4310, L501.4020, L500.3400 ####[facility] [address] [place], [place], [phone] Urea nitrogen [Mass/Vol] 14 mg/dL Normal 7-18 [facility]; [facility] Work Phone: Comment on above: Order Comment: 'TROP ' Serial specimen #1, #2 or #3: 1 Performed By: #### L 100.0100, L501.2450, L503.6005, L500.2500, L300.3900, L300.4310, L501.4020, L500.3400 ####[facility] [address] [place], [place], [phone] Brain/Head without Contrasto n 06-07-2024 Brain/Head without Contrast Normal [facility] CBC W/Diff, Automatedon 12-2 PLT EST ADEQUATE Normal ADEQ [facility]; [facility] Work Phone: Comment on above: Performed By: #### L 100.0100, L501.2450, L503.6005, L500.2500, L300.3900, L300.4310, L501.4020, L500.3400 ####[facility] [address] [place], [address] Chest 1 View (Portable)on Chest 1 View (Portable) Normal [facility] Chest WITH Contraston 2023 Chest WITH Contrast Normal [facility] Emergency Department Summary on 06-07-2024 Emergency Department Summary Normal [facility] H AND P Exam - Hospitaliston 06-07-2024 H&P Exam - Hospitalist Normal [facility] L501.4020on 06-07-2024 TROPONIN-I HS 9 pg/mL Normal 3.0-54.0 [facility]; [facility] Work Phone: Comment on above: Order Comment: 'TROP ' Serial specimen #1, #2 or #3: 1 Result Comment: Plea se Note: New Test Units and Gender Specific Reference Ranges. For more information see Policy Stat Procedure [place] High Sensitivity Troponin (TNIH) and attachments. Performed By: #### L 100.0100, L501.2450, L503.6005, L500.2500, L300.3900, L300.4310, L501.4020, L500.3400 ####[facility] [address] [place] [place], [place], [id number] Laboratory - Chemistry and C hemistry - challengeon 06-07-2024 Magnesium [Mass/Vol] 8.8 mg/dL Normal 8.5 - 1 0.1 mg/dL [facility]; [facility] [employer] [facility] Work Phone: Laboratory - Hematology and Cell countson 06-07-2024 Basophils/100 WBC (Bld) 0.6 % Normal 0 - 1 [facility]; [facility] Work Phone: Eosinophils/100 WBC (Bld) 2.2 % Normal 0 - 5 [facility]; [facility] Work Phone: Erythrocyte distribution width (RBC) [Ratio] 14.5 % Normal 11.6 - 14.6 [facility]; [facility] Work Phone: Hematocrit (Bld) [Volume fraction] 34.6 % Abnormal 37 - 47 [facility]; [facility] Work Phone: Hemoglobin (Bld) [Mass/Vol] 10.4 g/dL Abnormal 12.0 - 15.0 g/dL [facility]; [facility] Work Phone: Lymphocytes/100 WBC (Bld) 19.7 % Normal 19 - 41 [facility]; [facility] Work Phone: MCH (RBC) [Entitic mass] 25.7 pg Abnormal 27.0 - 32.0 pg [facility]; [facility] Work Phone: MCHC (RBC) [Mass/Vol] 30.1 g/dL Abnormal 32 - 3 6 g/dL [facility]; [facility] Work Phone: MCV (RBC) [Entitic vol] 85.6 fL Normal 81 - 99 fL [facility]; [facility] Work Phone: Monocytes/100 WBC (Bld) 11.0 % Abnormal 0 - 10 [facility]; [facility] Work Phone: Neutrophils/100 WBC (Bld) 65.9 % Normal 47 - 70 [facility]; [facility]. Work Phone: Nucleated RBC (Bld) [#/Vol] 0 10*3/uL Normal 0 - 5 [facility]; [facility]. Work Phone: Platelet mean volume (Bld) [Entitic vol] 9.8 fL Normal 6.2 - 12.0 fL [facility]; [facility]. Work Phone: RBC (Bld) [#/Vol] 4.04 10*6/uL Abnormal 4.2 - 5.4 {M/mm3} [facility]; [facility]. Work Phone: WBC (Bld) [#/Vol] 6.4 10*3/uL Normal 4.4 - 11.0 K/mm3 [facility].; [facility]. Work Phone: Laboratory - Microbiology an d Antimicrobial susceptibilityon 06-07-2024 Bacteria identified Cx Nom (Unsp spec) 0 SEEN Normal [facility]; [facility]. Work Phone: Laboratory - Specimen inform ationon 06-07-2024 Clarity (U) Clear Normal [facility]; [facility]. Work Phone: Color (U) Yellow Normal [facility]; [facility]. Work Phone: Laboratory - Urinalysison Nitrite Ql (U) Negative [facility]; [facility] [employer] [facility] Work Phone: Lactic Acidon 06-07-2024 Lactate [Moles/Vol] 1.1 mmol/L Normal 0.4-1.9 [facility]; [facility] Work Phone: Comment on above: Order Comment: Y Performed By: #### L 100.0100, L501.2450, L503.6005, L500.2500, L300.3900, L300.4310, L501.4020, L500.3400 ####[facility] [address] [place], [address] Lipaseon 06-07-2024 Lipase [Catalytic activity/Vol] 75 U/L Normal 13-75 [facility]; [facility] Work Phone: Comment on above: Order Comment: 'TROP ' Serial specimen #1, #2 or #3: 1 Result Comment: Jaguar leigh note:LIPASE revised reference range effective 22.New Lipase methodology. Expected to produce lower valuesthan the previous assay method.NEW Reference Range: 13 - 75 U/L Performed By: #### L 100.0100, L501.2450, L503.6005, L500.2500, L300.3900, L300.4310, L501.4020, L500.3400 ####[facility] [address] [place], [address] Liver Profileon 06-07-2024 Albumin [Mass/Vol] 2.7 g/dL Low 3.2-5.0 [facility]; [facility] Work Phone: Comment on above: Order Comment: 'TROP ' Serial specimen #1, #2 or #3: 1 Performed By: #### L 100.0100, L501.2450, L503.6005, L500.2500, L300.3900, L300.4310, L501.4020, L500.3400 ####[facility] [address] [place], [place], [phone] ALK P 106 U/L Normal 45-117 [facility]; [facility] Work Phone: Comment on above: Order Comment: 'TROP ' Serial specimen #1, #2 or #3: 1 Performed By: #### L 100.0100, L501.2450, L503.6005, L500.2500, L300.3900, L300.4310, L501.4020, L500.3400 ####[facility] [address] [place], [place], [phone] ALT [Catalytic activity/Vol] 18 U/L Normal 13-56 [facility]; [facility] Work Phone: Comment on above: Order Comment: 'TROP ' Serial specimen #1, #2 or #3: 1 Performed By: #### L 100.0100, L501.2450, L503.6005, L500.2500, L300.3900, L300.4310, L501.4020, L500.3400 ####[facility] [address] [place], [place], [id number] AST [Catalytic activity/Vol] 25 U/L Normal 15-37 [facility]; [facility] Work Phone: Comment on above: Order Comment: 'TROP ' Serial specimen #1, #2 or #3: 1 Result Comment: Slig ht Hemolysis, Result may be falsely increased. Performed By: #### L 100.0100, L501.2450, L503.6005, L500.2500, L300.3900, L300.4310, L501.4020, L500.3400 ####[facility] [address] [place], [address] Bilirubin [Mass/Vol] 0.40 mg/dL Normal 0.20-1.00 [facility]; [facility] Work Phone: Comment on above: Order Comment: 'TROP ' Serial specimen #1, #2 or #3: 1 Result Comment: For patients on eltrombopag therapy, use of Dimension [place] TBIL is not recommended. Performed By: #### L 100.0100, L501.2450, L503.6005, L500.2500, L300.3900, L300.4310, L501.4020, L500.3400 ####[facility] [address] [place], [address] Bilirubin.direct [Mass/Vol] 0.08 mg/dL Normal 0.00-0.30 [facility]; [facility] Work Phone: Comment on above: Order Comment: 'TROP ' Serial specimen #1, #2 or #3: 1 Performed By: #### L 100.0100, L501.2450, L503.6005, L500.2500, L300.3900, L300.4310, L501.4020, L500.3400 ####[facility] [address] [place], [address] Globulin (S) [Mass/Vol] 3.9 g/dL Normal 2.2-4.2 [facility]; [facility] Work Phone: Comment on above: Order Comment: 'TROP ' Serial specimen #1, #2 or #3: 1 Performed By: #### L 100.0100, L501.2450, L503.6005, L500.2500, L300.3900, L300.4310, L501.4020, L500.3400 ####[facility] [address] [facility]. [place], [place], [address] T PROT 6.6 g/dL Normal 6.4-8.2 [facility]; [employer] Work Phone: Comment on above: Order Comment: 'TROP ' Serial specimen #1, #2 or #3: 1 Performed By: #### L 100.0100, L501.2450, L503.6005, L500.2500, L300.3900, L300.4310, L501.4020, L500.3400 ####[facility] [address] [facility] [place], [address] M100.678on 06-07-2024 M100.678 Pending SARS-CoV-2 (COVID 19) A Positive A INFLUENZA A Negative INFLUENZA B Negative RSV PCR Negative SARS-CoV-2 (COVID 19 PCR) Normal [facility] Comment on above: Performed By: #### L 400.0001, M100.678 ####[facility] [address] [place], [address] M8200.1000on 06-07-2024 M8200.1000 Normal Reference Ran ge = Negative MRSA DNA Nose Ql AZID+probe GeneXpert Instrument, PCR method MRSA PCR MRSA NEGATIVE Normal [facility] Comment on above: Performed By: #### M 8200.1000 ####[facility] [address] [place], [address] No Panel Informationon 06-07 Absolute Lymph 1.26 {X10_3/uL} Normal 0.83 - 4.51 {X10_3/uL} [facility]; [employer] [facility] [employer]. Work Phone: Absolute Neut 4.2 {X10_3/uL} Normal 2.0 - 7.7 {X10_3/uL} [facility]; [employer] Work Phone: BILIRUBIN URINE Negative Normal [facility].; [facility]. Work Phone: BUN/CRE 14.4 {RATIO} Normal 10 - 20 {RATIO} [facility].; [facility]. Work Phone: GLUCOSE, UR Normal Normal [facility].; [facility]. Work Phone: IG% 0.600 Normal 0.0 - 0.9 [facility]; [facility]. Work Phone: KETONE UR Negative Normal [facility].; [facility]. Work Phone: LEUK ESTERASE Negative Normal [facility].; [facility]. Work Phone: M100.678 See Note Normal [facility].; [facility]. Work Phone: M8200.1000 See Note Normal [facility].; [facility]. Work Phone: OCCULT BLOOD-UR 10 /ul Abnormal [facility].; [facility], [facility]. Work Phone: pH UR 7.0 Normal 5.0 - 8.0 [facility]; [facility]. Work Phone: PLT Normal 150 - 450 K/mm3 [facility]; [facility]. Work Phone: PROT DIPSTX Negative Normal [facility].; [facility] [employer] [facility] Work Phone: RDW SD 44.9 fL Abnormal 35.1 - 43.9 fL [facility]; [facility] Work Phone: SP.GR. DIPSTX 1.010 Normal 1.002 - 1.030 [facility]; [facility] [employer] [facility] Work Phone: UROBILI Normal Normal [facility]; [facility] Work Phone: Partial Thromboplast Timeon 06-07-2024 aPTT Coag (Bld) [Time] 21.3 s Low 24.1-36.2 [facility]; [facility] [employer] [facility] Work Phone: Comment on above: Performed By: #### L 100.0100, L501.2450, L503.6005, L500.2500, L300.3900, L300.4310, L501.4020, L500.3400 ####[facility] [address] [place], [address] Prothrombin Time w/INRon INR Coag (PPP) [Relative time] 0.9 {INR} Normal [facility]; [facility] [employer] [facility] Work Phone: Comment on above: Performed By: #### L 100.0100, L501.2450, L503.6005, L500.2500, L300.3900, L300.4310, L501.4020, L500.3400 ####[facility] [address] [place], [address] PT Coag (PPP) [Time] 12.2 s Normal 11.7-14.9 [facility]; [facility]. Work Phone: Comment on above: Performed By: #### L 100.0100, L501.2450, L503.6005, L500.2500, L300.3900, L300.4310, L501.4020, L500.3400 ####[facility] [address] [place], [address] Urinalysis, Completeon 06-07 EPI,SQUAMOUS 0-5 SEEN Normal 5-10 [facility].; [facility] [employer] [facility] Work Phone: Comment on above: Order Comment: COLLE CTOR TO SPECIFY Performed By: #### L 400.0001, M100.678 ####[facility] [address] [place], [address] RBC 0-5 SEEN Normal 0-5 [facility]; [facility] [employer] [facility] Work Phone: Comment on above: Order Comment: YA CTOR TO SPECIFY Performed By: #### L 400.0001, M100.678 ####[facility] [address] [place], [address] BACTERIA 0 SEEN Normal None Seen [facility] Comment on above: Order Comment: COLLE CTOR TO SPECIFY Performed By: #### L 400.0001, M100.678 ####[facility] [address] [place], [address] Mucus Ql (Urine sed) 0 SEEN Normal [facility]; [facility] Work Phone: Comment on above: Order Comment: COLLE CTOR TO SPECIFY Performed By: #### L 400.0001, M100.678 ####[facility] [address] [place], [address] WBC 0 SEEN Normal 0-5 [facility].; [facility] [employer] [facility]. Work Phone: Comment on above: Order Comment: COLLE CTOR TO SPECIFY Performed By: #### L 400.0001, M100.678 ####[facility] [address] [place], [address] CBC W/Diff, Automatedon 12- Absolute Lymph 0.79 X10 3/uL Low 0.83-4.51 [facility] Comment on above: Performed By: #### L 100.0100, L500.4050, L503.6005 ####[facility] [address] [place], [address] Absolute Neut 3.5 X10 3/uL Normal 2.0-7.7 [facility] Comment on above: Performed By: #### L 100.0100, L500.4050, L503.6005 ####[facility] [address] [place], [address] Basophils/100 WBC (Bld) 0.6 % Normal 0-1 [facility].; [facility] [employer] [facility] Work Phone: Comment on above: Performed By: #### L 100.0100, L500.4050, L503.6005 ####[facility] [address] [place], [address] Eosinophils/100 WBC (Bld) 0.4 % Normal 0-5 [facility].; [facility] [employer] [facility]. Work Phone: Comment on above: Performed By: #### L 100.0100, L500.4050, L503.6005 ####[facility] [address] [place], [address] Erythrocyte distribution width (RBC) [Ratio] 14.6 % Normal 11.6-14.6 [facility] Work Phone: Comment on above: Performed By: #### L 100.0100, L500.4050, L503.6005 ####[facility] [address] [place], [place], [phone] Hematocrit (Bld) [Volume fraction] 35.5 % Low 37-47 [facility] Work Phone: Comment on above: Performed By: #### L 100.0100, L500.4050, L503.6005 ####[facility] [address] [facility] [place], [place], [phone] Hemoglobin (Bld) [Mass/Vol] 10.5 g/dL Low 12.0-15.0 [facility]; [facility] Work Phone: Comment on above: Performed By: #### L 100.0100, L500.4050, L503.6005 ####[facility] [address] [facility]. [place], [place], [phone] IG% 0.400 Normal 0.0-0.9 [facility]; [facility] Work Phone: Comment on above: Result Comment: IG% - Immature Granulocytes (promyelocytes, myelocytes andmetamyelocytes) > 1% indicates that a LEFT SHIFT is Present. Performed By: #### L 100.0100, L500.4050, L503.6005 ####[facility] [address] [facility] [place], [place], [phone] Lymphocytes/100 WBC (Bld) 14.9 % Low 19-41 [facility]; [facility] [employer] [facility] Work Phone: Comment on above: Performed By: #### L 100.0100, L500.4050, L503.6005 ####[facility] [address] [place], [place], [phone] MCH (RBC) [Entitic mass] 25.5 pg Low 27.0-32.0 [facility]; [facility] Work Phone: Comment on above: Performed By: #### L 100.0100, L500.4050, L503.6005 ####[facility] [address] [place], [place], [phone] MCHC (RBC) [Mass/Vol] 29.6 g/dL Low 32-36 [facility]; [facility] [employer] [facility] Work Phone: Comment on above: Performed By: #### L 100.0100, L500.4050, L503.6005 ####[facility] [address] [place], [place], [phone] MCV (RBC) [Entitic vol] 86.4 fL Normal 81-99 [facility]; [facility] [employer] [facility] Work Phone: Comment on above: Performed By: #### L 100.0100, L500.4050, L503.6005 ####[facility] [address] [place], [place], [phone] Monocytes/100 WBC (Bld) 18.6 % High 0-10 [facility]; [facility] [employer] [facility] Work Phone: Comment on above: Performed By: #### L 100.0100, L500.4050, L503.6005 ####[facility] [address] [place], [address] Neutrophils/100 WBC (Bld) 65.1 % Normal 47-70 [facility]; [facility] Work Phone: Comment on above: Performed By: #### L 100.0100, L500.4050, L503.6005 ####[facility] [address] [place], [address] Nucleated RBC (Bld) [#/Vol] 0 10*3/uL Normal 0-5 [facility]; [facility] Work Phone: Comment on above: Performed By: #### L 100.0100, L500.4050, L503.6005 ####[facility] [address] [place], [address] Platelet mean volume (Bld) [Entitic vol] 8.5 fL Normal 6.2-12.0 [facility]; [facility] Work Phone: Comment on above: Performed By: #### L 100.0100, L500.4050, L503.6005 ####[facility] [address] [place], [address] Platelets (Bld) [#/Vol] 344 10*3/uL Normal 150-450 [facility]; [facility] Work Phone: Comment on above: Performed By: #### L 100.0100, L500.4050, L503.6005 ####[facility] [address] [place], [address] RBC (Bld) [#/Vol] 4.11 10*6/uL Low 4.2-5.4 [facility].; [facility] [employer] [facility] Work Phone: Comment on above: Performed By: #### L 100.0100, L500.4050, L503.6005 ####[facility] [address] [place], [place], [phone] RDW SD 46.4 fL High 35.1-43.9 [facility]; [facility] Work Phone: Comment on above: Performed By: #### L 100.0100, L500.4050, L503.6005 ####[facility] [address] [place], [address] WBC (Bld) [#/Vol] 5.3 10*3/uL Normal 4.4-11.0 [facility]; [facility] [employer] [facility] Work Phone: Comment on above: Performed By: #### L 100.0100, L500.4050, L503.6005 ####[facility] [address] [place], [address] Chest PA and Lateralon 05-30 Chest PA and Lateral Normal [facility] Comprehensive Metabolic Prof ilon 05-30-2024 Albumin [Mass/Vol] 3.0 g/dL Low 3.2-5.0 [facility].; [facility] Work Phone: Comment on above: Performed By: #### L 100.0100, L500.4050, L503.6005 ####[facility] [address] [place], [address] Albumin/Globulin [Mass ratio] 0.8 {ratio} Low 0.9-2.4 [facility]; [facility] Work Phone: Comment on above: Performed By: #### L 100.0100, L500.4050, L503.6005 ####[facility] [address] [place], [place], [phone] ALK P 124 U/L High 45-117 [facility]; [facility] Work Phone: Comment on above: Performed By: #### L 100.0100, L500.4050, L503.6005 ####[facility] [address] [place], [place], [phone] ALT [Catalytic activity/Vol] 15 U/L Normal 13-56 [facility]; [facility] Work Phone: Comment on above: Performed By: #### L 100.0100, L500.4050, L503.6005 ####[facility] [address] [place], [place], [phone] AST [Catalytic activity/Vol] 22 U/L Normal 15-37 [facility]; [facility] Work Phone: Comment on above: Performed By: #### L 100.0100, L500.4050, L503.6005 ####[facility] [address] [place], [place], [phone] Bilirubin [Mass/Vol] 0.40 mg/dL Normal 0.20-1.00 [facility]; [facility] Work Phone: Comment on above: Result Comment: For patients on eltrombopag therapy, use of Dimension [place] TBIL is not recommended. Performed By: #### L 100.0100, L500.4050, L503.6005 ####[facility] [address] [place], [address] BUN/CRE 13.4 RATIO Normal 10-20 [facility] Comment on above: Performed By: #### L 100.0100, L500.4050, L503.6005 ####[facility] [address] [place], [address] CA,Total 8.9 mg/dL Normal 8.5-10.1 [facility] Comment on above: Performed By: #### L 100.0100, L500.4050, L503.6005 ####[facility] [address] [place], [address] Chloride [Moles/Vol] 105 mmol/L Normal 98-107 [facility]; [facility] Work Phone: Comment on above: Performed By: #### L 100.0100, L500.4050, L503.6005 ####[facility] [address] [place], [address] CO2 [Moles/Vol] 27.0 mmol/L Normal 21.0-32.0 [facility]; [facility] Work Phone: Comment on above: Performed By: #### L 100.0100, L500.4050, L503.6005 ####[facility] [address] [place], [address] Creatinine [Mass/Vol] 1.12 mg/dL High 0.55-1.02 [facility]; [facility] Work Phone: Comment on above: Result Comment: The validity of the calculated GFR GFRAA in patients over70 years has not been determined. Clinical correlation isessential. Performed By: #### L 100.0100, L500.4050, L503.6005 ####[facility] [address] [place], [address] EST GFR - AA 60 mL/min Normal >60 [facility].; [facility] Work Phone: Comment on above: Result Comment: Afri can Polish GFR Calc Performed By: #### L 100.0100, [id number], L503.6005 ####[facility] [address] [place], [address] GAP 5 Normal 5-15 [facility]; [facility] [employer] [facility] Work Phone: Comment on above: Performed By: #### L 100.0100, [id number], L503.6005 ####[facility] [address] [place], [address] GFR/1.73 sq M.predicted among non-blacks MDRD (S/P/Bld) [Vol rate/Area] 49 mL/min/{1.73_m2} Low >60 [facility].; [facility] [employer] [facility] Work Phone: Comment on above: Result Comment: Non- GFR Calc Performed By: #### L 100.0100, [id number], L503.6005 ####[facility] [address] [place], [place], [address](016) Globulin (S) [Mass/Vol] 3.9 g/dL Normal 2.2-4.2 [facility] [employer] [facility].; [facility] [employer] [facility]. Work Phone: Comment on above: Performed By: #### L 100.0100, [id number], L503.6005 ####[facility] [address] [place], [address] Glucose [Mass/Vol] 108 mg/dL High 74-106 [facility]; [facility] Work Phone: Comment on above: Result Comment: Fast ing Glucose result from 100 to 125 mg/dLsuggests IMPAIRED HOMEOSTASIS per A.D.A. criteria. Performed By: #### L 100.0100, L500.4050, L503.6005 ####[facility] [address] [place], [address] Potassium [Moles/Vol] 3.5 mmol/L Normal 3.5-5.1 [facility]; [facility] Work Phone: Comment on above: Performed By: #### L 100.0100, [id number], L503.6005 ####[facility] [address] [place], [address] Sodium [Moles/Vol] 137 mmol/L Normal 136-145 [facility]; [facility] Work Phone: Comment on above: Performed By: #### L 100.0100, [id number], [id number] ####[facility] [address] [place], [address] T PROT 6.9 g/dL Normal 6.4-8.2 [facility]; [facility] Work Phone: Comment on above: Performed By: #### L 100.0100, [id number], [id number] ####[facility] [address] [place], [place], [id number] Urea nitrogen [Mass/Vol] 15 mg/dL Normal 7-18 [facility]; [facility]. Work Phone: Comment on above: Performed By: #### L 100.0100, [id number], [id number] ####[facility] [address] [place], [address] Emergency Department Summary on 05-30-2024 Emergency Department Summary Normal [facility] Laboratory - Chemistry and C hemistry - challengeon 05-30-2024 Magnesium [Mass/Vol] 30 mg/dL Abnormal [facility].; [facility]. Work Phone: Magnesium [Mass/Vol] 8.9 mg/dL Normal 8.5 - 1 0.1 mg/dL [facility].; [facility] [employer] [facility]. Work Phone: Laboratory - Microbiology an d Antimicrobial susceptibilityon 05-30-2024 Bacteria identified Cx Nom (Unsp spec) 1+ Normal [facility]; [facility] [employer] [facility]. Work Phone: Laboratory - Specimen inform ationon 05-30-2024 Clarity (U) Clear Normal [facility].; [facility] [employer] [facility]. Work Phone: Color (U) Yellow Normal [facility].; [facility] [employer] [facility]. Work Phone: Laboratory - Urinalysison Nitrite Ql (U) Negative Normal [facility].; [facility] [employer] [facility]. Work Phone: Lactic Acidon 05-30-2024 Lactate [Moles/Vol] 1.6 mmol/L Normal 0.4-1.9 [facility]; [facility]. Work Phone: Comment on above: Order Comment: Y Performed By: #### L 100.0100, [id number], L503.6005 ####[facility] [address] [place], [address] No Panel Informationon 05-30 Absolute Lymph 0.79 {X10_3/uL} Abnormal 0.83 - 4.51 {X10_3/uL} [facility] [employer] [facility].; [facility] [employer] Work Phone: Absolute Neut 3.5 {X10_3/uL} Normal 2.0 - 7.7 {X10_3/uL} [facility] [employer] [facility].; [facility] [employer]. Work Phone: BILIRUBIN URINE Negative Normal [facility] [employer] [facility].; [facility] [employer] Work Phone: BUN/CRE 13.4 {RATIO} Normal 10 - 20 {RATIO} [facility] [employer] [facility].; [facility] [employer] Work Phone: GLUCOSE, UR Normal Normal [facility] [employer] [facility].; [facility]. Work Phone: KETONE UR Negative Normal [facility] [employer] [facility].; [employer] [facility], [employer] Work Phone: LEUK ESTERASE Negative Normal [facility] [employer] [facility].; [facility]. Work Phone: OCCULT BLOOD-UR Negative Normal [facility].; [facility] [employer] Work Phone: pH UR 6.5 Normal 5.0 - 8.0 [facility] [employer] [facility].; [employer] HospitalW[facility]. Work Phone: SP.GR. DIPSTX 1.010 Normal 1.002 - 1.030 [facility] [employer] [facility].; [facility] [employer] [facility]. Work Phone: UROBILI Normal Normal [facility].; [facility]. Work Phone: Urinalysis, Completeon 05-30 Mucus Ql (Urine sed) RARE Normal [facility].; [facility] [employer] [facility]. Work Phone: Comment on above: Order Comment: CLEAN CATCH Performed By: #### L 400.0001 ####[facility] [address] [place], [address] BACTERIA 1+ /hpf Normal None Seen [facility] Comment on above: Order Comment: CLEAN CATCH Performed By: #### L 400.0001 ####[facility] [address] [place], [address] EPI,SQUAMOUS 0-5 SEEN Normal 5-10 [facility].; [facility]. Work Phone: Comment on above: Order Comment: CLEAN CATCH Performed By: #### L 400.0001 ####[facility] [address] [place], [address] WBC 0-5 SEEN Normal 0-5 [facility] [employer] [facility].; [facility]. Work Phone: Comment on above: Order Comment: CLEAN CATCH Performed By: #### L 400.0001 ####[facility] [address] [place], [address] RBC 0 SEEN Normal 0-5 [facility].; [facility] [employer] [facility]. Work Phone: Comment on above: Order Comment: CLEAN CATCH Performed By: #### L 400.0001 ####[facility] [address] [place], [address] OPERATIVE PROCEDURESon 02-15 OPERATIVE PROCEDURES [facility] OPERATIVE REPORT NAME ACCOUNT SEX AGE ADMIT DISCHARGE PT MED. RECORD# NUMBER DATE DATE TYPE SAPNA BULLARD [id number] F 84 02/05/24 2 [id number] ROOM: [facility] DATE OF : 1940 DICTATING PHYSICIAN: Marcos Whiet DATE OF PROCEDURE: February 05, 2024 SURGEON: Marcos White DO SENIOR PRODUCT ANALYST: None. ANESTHETIC: Local. PRE-PROCEDURE DIAGNOSES: (1) Lumbar [...] Marcos White DO 02/05/24 12:03 JOB #: [id number] Transcribed By: tim 02/05/24 12:27 Electronically signed by: E-SIGN: MARCOS WHITE 02/16/24 07:40 Page 2 of 2 SAPNA BULLARD Operative Report [facility] C-ARM USAGE 1 HOUR 024 C-ARM USAGE 1 HOUR [place] [id number] [place] [address] Patient: SAPNA BULLARD. Phone#: : 1940 Age: 84 Gender: F Pt. Type: Out Account: [id number] Location: [id number] Ordering: MARCOS WHITE Exam Date: 02/05/2024/11:01 Family Phys: NICCI LEMUS Charge Code: [id number] Physician: Ward Order #: [id number] Dose#: PROCEDURE: C-ARM USEAGE 1 HR COMPARISON: [facility], C-ARM USEAGE 1 HR, 10/08/2023, 8:09. INDICATIONS: [...] Alston MD on 02/05/2024 at 16:03 [facility] Automated blood erythrocyte count (number/volume)Ordered By: Vish Cook on 08-17-2023 RBC (Bld) [#/Vol] 4.32 10*6/uL Normal 4.2 - 5.4 {M/mm3} [facility] Automated blood hematocrit ( percentage)Ordered By: Vish Cook on 08-17-2023 Hematocrit (Bld) [Volume fraction] 37.9 % Normal 37 - 47 [facility] Basophil percentageOrdered B y: Vish Cook on 08-17-2023 Bilirubin [Mass/Vol] 0.30 mg/dL Normal 0.20 - 1.00 mg/dL [facility] Comment on above: For patients on eltr ombopag therapy, use of Dimension [place] TBIL is not recommended. Chloride [Moles/Vol] 104 mmol/L Normal 98 - 10 7 mmol/L [facility] Glucose [Mass/Vol] 92 mg/dL Normal 74 - 106 mg/dL [facility] Hemoglobin (Bld) [Mass/Vol] 11.7 g/dL Abnormal 12.0 - 15.0 g/dL [facility] Potassium [Moles/Vol] 3.9 mmol/L Normal 3.5 - 5.1 mmol/L [facility] Protein [Mass/Vol] 7.2 g/dL 6.4-8.2 [facility] Sodium [Moles/Vol] 138 mmol/L Normal 136 - 145 mmol/L [facility] WBC (Bld) [#/Vol] 11.0 10*3/uL Normal 4.4 - 11.0 K/mm3 [facility] Determination of erythrocyte mean corpuscular volume (MCV)Ordered By: Vishsushila Cook on 08-17-2023 MCV (RBC) [Entitic vol] 87.7 fL Normal 81 - 99 fL [facility] Erythrocyte distribution wid th ratioOrdered By: [facility] on 08-17-2023 Erythrocyte distribution width (RBC) [Ratio] 14.7 % Abnormal 11.6 - 14.6 [facility] Erythrocyte distribution wid th standard deviationOrdered By: [facility] on 08-17-2023 Erythrocyte distribution width (RBC) [Entitic vol] 47.1 fL 35.1-43.9 [facility] Laboratory - Chemistry and C hemistry - challengeon 08-17-2023 Albumin [Mass/Vol] 3.0 g/dL Abnormal 3.2 - 5.0 g/dL [facility].; [facility]. Work Phone: AST [Catalytic activity/Vol] 19 U/L Normal 15 - 37 U/L [facility]; [facility] [employer] [facility] Work Phone: GFR/1.73 sq M.predicted among non-blacks MDRD (S/P/Bld) [Vol rate/Area] 59 mL/min/{1.73_m2} Abnormal [facility].; [facility]. Work Phone: Magnesium [Mass/Vol] 9.9 mg/dL Normal 8.5 - 1 0.1 mg/dL [facility].; [facility] Work Phone: Laboratory - Chemistry and C hemistry - challengeOrdered By: Vish Cook on 08-17-2023 Albumin/Globulin [Mass ratio] 0.7 {ratio} Abnormal 0.9 - 2.4 {RATIO} [facility] ALP [Catalytic activity/Vol] 138 U/L 45-117 [facility] ALT [Catalytic activity/Vol] 17 U/L Normal 13 - 56 U/L [facility] CO2 [Moles/Vol] 29.0 mmol/L Normal 21.0 - 32.0 mmol/L [facility] Globulin (S) [Mass/Vol] 4.2 g/dL Normal 2.2 - 4.2 g/dL [facility] Urea nitrogen/Creatinine [Mass ratio] 17.8 mg/mg 10-20 [facility] Laboratory - Hematology and Cell countsOrdered By: Vish Cook on 08-17-2023 MCH (RBC) [Entitic mass] 27.1 pg Normal 27.0 - 32.0 pg [facility] MCHC (RBC) [Mass/Vol] 30.9 g/dL Abnormal 32 - 3 6 g/dL [facility] Platelet mean volume (Bld) [Entitic vol] 8.6 fL Normal 6.2 - 12.0 fL [facility] Platelets (Bld) [#/Vol] 440 10*3/uL Normal 150 - 450 K/mm3 [facility] No Panel Informationon 08-16 ALK P 138 U/L Abnormal 45 - 117 U/L [facility] [employer] [facility].; [facility]. Work Phone: BUN/CRE 17.8 {RATIO} Normal 10 - 20 {RATIO} [facility]Mon[facility] [employer] [facility] HospitalHappy [employer]; [facility] Work Phone: EST GFR - AA 72 mL/min Normal [facility]; [facility] [facility] Work Phone: GAP 5 Normal 5 - 15 [facility]; [facility] [employer] [facility]. Work Phone: RDW SD 47.1 fL Abnormal 35.1 - 43.9 fL [facility].; [facility] [facility] Work Phone: T PROT 7.2 g/dL Normal 6.4 - 8.2 g/dL [facility]; [facility] [facility] Work Phone: No Panel InformationOrdered By: Vish Cook on 08-17-2023 Estimated GFR (MDRD) Amer 72 mL/min >60 [facility] Comment on above: GFR Calc Estimated GFR (MDRD) Non-Af Amer 59 mL/min >60 [facility] Comment on above: Non- GFR Calc Serum or plasma calcium candice urement (mass/volume)Ordered By: Vish Cook on 08-17-2023 Calcium [Mass/Vol] 9.9 mg/dL 8.5-10.1 [facility] Serum or plasma creatinine m easurement (mass/volume)Ordered By: Vish Cook on 08-17-2023 Creatinine [Mass/Vol] 0.96 mg/dL Normal 0.55 - 1.02 mg/dL [facility] Comment on above: The validity of the calculated GFR & GFRAA in patients over 70 years has not been determined. Clinical correlation is essential. Serum or plasma urea nitroge n measurement (mass/volume)Ordered By: Vish Cook on 08-17-2023 Urea nitrogen [Mass/Vol] 17 mg/dL Normal 7 - 18 mg/dL [facility] Thin prep Papanicolaou smear with manual screeningOrdered By: Vish Cook on 08-17-2023 Thin prep Papanicolaou smear with manual screening 3.0 g/dL 3.2-5.0 [facility] Thin prep Papanicolaou smear with manual screening 19 U/L 15-37 [facility] Thin prep Papanicolaou smear with manual screening 5 5-15 [facility] Basophil percentageOrdered B y: Vish Cook on 08-14-2023 Basophil percentage 0 SEEN /hpf 0-5 [facility] Bilirubin Test strip Ql (U)O rdered By: Vish Cook on 08-14-2023 Bilirubin Ql (U) Negative Negative [facility] Culture, urineOrdered By: Ra destinee Cook on 08-14-2023 Bacteria identified Cx Nom (U) Culture exhibits no growth. [facility] Ketones Test strip Ql (U)Ord ered By: Vish Cook on 08-14-2023 Ketones Ql (U) Negative Negative [facility] Laboratory - Microbiology an d Antimicrobial susceptibilityon 08-14-2023 Bacteria identified Cx Nom (Unsp spec) 0 SEEN Normal [facility] [employer] [facility] HospitalHappy [employer]; [facility] Work Phone: Laboratory - Urinalysison Mucus Ql (Urine sed) 0 SEEN Normal [facility] [employer] [facility] HospitalHappy [employer]; [facility] Work Phone: Mucus LM Ql (Urine sed)Order ed By: Vish Cook on 08-14-2023 Mucus Ql (Urine sed) 0 SEEN /hpf [facility] Nitrite ur dipstickOrdered B y: Vish Cook on 08-14-2023 Nitrite Ql (U) Negative Normal [facility] No Panel InformationOrdered By: Vish Cook on 08-14-2023 Urine RBC 0 SEEN /hpf 0-5 [facility] No Panel Informationon 08-13 BILIRUBIN URINE Negative Normal [facility]; [facility] Work Phone: EPI,SQUAMOUS 0 SEEN Normal 5 - 10 {/hpf} [facility]; [facility] [employer] Work Phone: GLUCOSE, UR Normal Normal [facility]; [facility] Work Phone: KETONE UR Negative Normal [facility]; [facility]. Work Phone: LEUK ESTERASE Negative Normal [facility].; [facility]. Work Phone: OCCULT BLOOD-UR Negative Normal [facility].; [facility]. Work Phone: pH UR 5.0 Normal 5.0 - 8.0 [facility]; [facility] Work Phone: PROT DIPSTX Negative Normal [facility].; [facility], [facility]. Work Phone: RBC 0 SEEN Normal 0 - 5 {/hpf} [facility].; [facility]. Work Phone: SP.GR. DIPSTX 1.010 Normal 1.002 - 1.030 [facility].; [facility] Work Phone: URC See Note Normal [facility].; [facility]. Work Phone: UROBILI Normal Normal [facility].; [facility] Work Phone: WBC 0 SEEN Normal 0 - 5 {/hpf} [facility].; [facility], [facility] Work Phone: Protein Test strip Ql (U)Ord ered By: Vish Cook on 08-14-2023 Protein Ql (U) Negative Negative [facility] Squamous epithelial cells de tection in urine sediment by light microscopyOrdered By: Vish Cook on 08-14-2023 Epithelial cells.squamous LM Ql (Urine sed) 0 SEEN /hpf 5-10 [facility] Urine blood detectionOrdered By: Vish Cook on 08-14-2023 RBC Ql (U) Negative Negative [facility] Urine clarityOrdered By: Vahe Cook on 08-14-2023 Clarity (U) Clear Normal [facility] Urine color determinationOrd ered By: Vish Cook on 08-14-2023 Color (U) Yellow Normal [facility] Urine glucose detectionOrder ed By: Vish Cook on 08-14-2023 Glucose Ql (U) Normal mg/dl Normal [facility] Urine leukocyte esterase det ection by dipstickOrdered By: Vish Cook on 08-14-2023 Leukocyte esterase Test strip Ql (U) Negative Negative [facility] Urine pHOrdered By: Vish Cook on 08-14-2023 pH (U) 5.0 [pH] 5.0 - 8.0 [facility] Urine sediment bacteria coun t by microscopy (number/high power field)Ordered By: Vish Cook on 08-14-2023 Bacteria LM.HPF (Urine sed) [#/Area] 0 /[HPF] None Seen [facility] Urine specific gravity measu rementOrdered By: Vish Cook on 08-14-2023 Specific gravity (U) [Rel density] 1.010 1.002-1.03 0 [facility] Urine urobilinogen measureme ntOrdered By: Vish Cook on 08-14-2023 Urobilinogen Ql (U) Normal mg/dl Normal [facility] Basophil percentageOrdered B y: Vish Cook on 05-25-2023 Potassium [Moles/Vol] 3.8 mmol/L Normal 3.5 - 5.1 mmol/L [facility] Absolute lymphocyte countOrd ered By: Pravin Cruz on 04-20-2023 Lymphocytes Auto (Unsp spec) [#/Vol] 1.38 10*3/uL 0.83-4.51 [facility] Automated blood hematocrit ( percentage)Ordered By: Pravin Cruz on 04-20-2023 Hematocrit (Bld) [Volume fraction] 31.2 % Abnormal 37 - 47 [facility] Basophil percentageOrdered B y: Pravin Cruz on 04-20-2023 Basophils/100 WBC (Bld) 0.3 % Normal 0 - 1 [facility] Chloride [Moles/Vol] 103 mmol/L Normal 98 - 10 7 mmol/L [facility] Eosinophils/100 WBC (Bld) 1.0 % Normal 0 - 5 [facility] Glucose [Mass/Vol] 92 mg/dL Normal 74 - 106 mg/dL [facility] Neutrophils (Bld) [#/Vol] 5.2 10*3/uL 2.0-7.7 [facility] Neutrophils/100 WBC (Bld) 65.0 % Normal 47 - 70 [facility] Potassium [Moles/Vol] 3.2 mmol/L Abnormal 3.5 - 5.1 mmol/L [facility] Sodium [Moles/Vol] 135 mmol/L Abnormal 136 - 145 mmol/L [facility] WBC (Bld) [#/Vol] 8.0 10*3/uL Normal 4.4 - 11.0 K/mm3 [facility] Blood erythrocytes count (nu mber/volume)Ordered By: Pravin Cruz on 04-20-2023 RBC (Bld) [#/Vol] 3.61 10*6/uL Abnormal 4.2 - 5.4 {M/mm3} [facility] Blood hemoglobin measurement (mass/volume)Ordered By: Pravin Cruz on 04-20-2023 Hemoglobin (Bld) [Mass/Vol] 10.0 g/dL Abnormal 12.0 - 15.0 g/dL [facility] Blood lymphocytes/100 leukoc ytesOrdered By: Pravin Cruz on 04-20-2023 Lymphocytes/100 WBC (Bld) 17.3 % Abnormal 19 - 41 [facility] Blood monocytes/100 leukocyt esOrdered By: Pravin Cruz on 04-20-2023 Monocytes/100 WBC (Bld) 16.0 % Abnormal 0 - 10 [facility] Blood platelet mean volumeOr dered By: Pravin Cruz on 04-20-2023 Platelet mean volume (Bld) [Entitic vol] 9.1 fL Normal 6.2 - 12.0 fL [facility] Determination of erythrocyte mean corpuscular volume (MCV)Ordered By: Pravin Cruz on 04-20-2023 MCV (RBC) [Entitic vol] 86.4 fL Normal 81 - 99 fL [facility] Laboratory - Chemistry and C hemistry - challengeon 04-20-2023 GFR/1.73 sq M.predicted among non-blacks MDRD (S/P/Bld) [Vol rate/Area] 71 mL/min/{1.73_m2} Normal [facility]; [facility] [employer] [facility] Work Phone: Magnesium [Mass/Vol] 8.2 mg/dL Abnormal 8.5 - 1 0.1 mg/dL [facility]; [facility] [employer] [facility] Work Phone: Laboratory - Chemistry and C hemistry - challengeOrdered By: Pravin Cruz on 04-20-2023 CO2 [Moles/Vol] 25.0 mmol/L Normal 21.0 - 32.0 mmol/L [facility] Urea nitrogen/Creatinine [Mass ratio] 19.6 mg/mg 10-20 [facility] Laboratory - Hematology and Cell countson 04-20-2023 Nucleated RBC (Bld) [#/Vol] 0 10*3/uL Normal 0 - 5 [facility]; [facility] [employer] [facility] Work Phone: Laboratory - Hematology and Cell countsOrdered By: Pravin Cruz on 04-20-2023 Erythrocyte distribution width (RBC) [Entitic vol] 42.5 fL 35.1-43.9 [facility] Erythrocyte distribution width (RBC) [Ratio] 13.4 % Normal 11.6 - 14.6 [facility] Immature granulocytes/100 WBC (Bld) 0.400 % 0.0-0.9 [facility] Comment on above: IG% - Immature Granu locytes (promyelocytes, myelocytes and metamyelocytes) > 1% indicates that a LEFT SHIFT is Present. MCH (RBC) [Entitic mass] 27.7 pg Normal 27.0 - 32.0 pg [facility] Nucleated RBC/100 WBC (Bld) [Ratio] 0 % 0-5 [facility] MCHC [Mass/volume] by Automa jose maria countOrdered By: Pravin Cruz on 04-20-2023 MCHC (RBC) [Mass/Vol] 32.1 g/dL Normal 32 - 3 6 g/dL [facility] No Panel Informationon 04-20 Absolute Lymph 1.38 {X10_3/uL} Normal 0.83 - 4.51 {X10_3/uL} [facility].; [facility] Work Phone: Absolute Neut 5.2 {X10_3/uL} Normal 2.0 - 7.7 {X10_3/uL} [facility].; [facility]. Work Phone: BUN/CRE 19.6 {RATIO} Normal 10 - 20 {RATIO} [facility].; [facility] [employer] [facility]. Work Phone: ECRCL 41.00 ml/min Normal [facility].; [facility] [employer] [facility]. Work Phone: EST GFR - AA 86 mL/min Normal [facility].; [facility]. Work Phone: GAP 7 Normal 5 - 15 [facility] HospitalHappy [employer]; [facility]. Work Phone: IG% 0.400 Normal 0.0 - 0.9 [facility]; [facility] [employer] [facility] Work Phone: RDW SD 42.5 fL Normal 35.1 - 43.9 fL [facility].; HANNAH QAGAN TAYAGUNGIN - [facility] Work Phone: No Panel InformationOrdered By: Pravin Cruz on 04-20-2023 Estimated Creatinine Clearance Calc 41.00 ml/min [facility] Estimated GFR (MDRD) Amer 86 mL/min >60 [facility] Comment on above: GFR Calc Estimated GFR (MDRD) Non-Af Amer 71 mL/min >60 [facility] Comment on above: Non- GFR Calc Platelets bldOrdered By: Salinas Cruz on 04-20-2023 Platelets (Bld) [#/Vol] 291 10*3/uL Normal 150 - 450 K/mm3 [facility] Serum or plasma calcium candice urement (mass/volume)Ordered By: Pravin Cruz on 04-20-2023 Calcium [Mass/Vol] 8.2 mg/dL 8.5-10.1 [facility] Serum or plasma creatinine m easurement (mass/volume)Ordered By: Pravin Cruz on 04-20-2023 Creatinine [Mass/Vol] 0.82 mg/dL Normal 0.55 - 1.02 mg/dL [facility] Comment on above: The validity of the calculated GFR & GFRAA in patients over 70 years has not been determined. Clinical correlation is essential. Serum or plasma urea nitroge n measurement (mass/volume)Ordered By: Pravin Cruz on 04-20-2023 Urea nitrogen [Mass/Vol] 16 mg/dL Normal 7 - 18 mg/dL [facility] Thin prep Papanicolaou smear with manual screeningOrdered By: Pravin Cruz on 04-20-2023 Thin prep Papanicolaou smear with manual screening 7 5-15 [facility] Basophil percentageOrdered B y: Karon White on 04-17-2023 Bilirubin [Mass/Vol] 0.40 mg/dL Normal 0.20 - 1.00 mg/dL [facility] Comment on above: For patients on eltr ombopag therapy, use of Dimension [place] TBIL is not recommended. Protein [Mass/Vol] 5.8 g/dL 6.4-8.2 [facility] Culture, urineOrdered By: Do art Cohen on 04-17-2023 Bacteria identified Cx Nom (U) Presumptive E. coli [facility] Laboratory - Chemistry and C hemistry - challengeon 04-17-2023 AST [Catalytic activity/Vol] 16 U/L Normal 15 - 37 U/L [facility]; [facility] Work Phone: Chloride [Moles/Vol] 108 mmol/L Abnormal 98 - 10 7 mmol/L [facility]; [facility] Work Phone: CO2 [Moles/Vol] 25.0 mmol/L Normal 21.0 - 32.0 mmol/L [facility]; [facility] Work Phone: Creatinine [Mass/Vol] 0.88 mg/dL Normal 0.55 - 1.02 mg/dL [facility]; [facility] Work Phone: GFR/1.73 sq M.predicted among non-blacks MDRD (S/P/Bld) [Vol rate/Area] 66 mL/min/{1.73_m2} Normal [facility]; [facility] Work Phone: Glucose [Mass/Vol] 86 mg/dL Normal 74 - 106 mg/dL [facility]; [facility] Work Phone: Magnesium [Mass/Vol] 7.9 mg/dL Abnormal 8.5 - 1 0.1 mg/dL [facility]; [facility] [employer] [facility] Work Phone: Potassium [Moles/Vol] 3.8 mmol/L Normal 3.5 - 5.1 mmol/L [facility]; [facility] Work Phone: Sodium [Moles/Vol] 138 mmol/L Normal 136 - 145 mmol/L [facility]; [facility] Work Phone: Urea nitrogen [Mass/Vol] 10 mg/dL Normal 7 - 18 mg/dL [facility]; [facility] Work Phone: Laboratory - Chemistry and C hemistry - challengeOrdered By: Karon Nunes on 04-17-2023 ALP [Catalytic activity/Vol] 101 U/L 45-117 [facility] ALT [Catalytic activity/Vol] 12 U/L Abnormal 13 - 56 U/L [facility] Globulin (S) [Mass/Vol] 3.3 g/dL Normal 2.2 - 4.2 g/dL [facility] Laboratory - Hematology and Cell countson 04-17-2023 Basophils/100 WBC (Bld) 0.6 % Normal 0 - 1 [facility]; [facility] Work Phone: Eosinophils/100 WBC (Bld) 0.6 % Normal 0 - 5 [facility]; [facility] Work Phone: Erythrocyte distribution width (RBC) [Ratio] 13.3 % Normal 11.6 - 14.6 [facility]; [facility] Work Phone: Hematocrit (Bld) [Volume fraction] 32.4 % Abnormal 37 - 47 [facility]; [facility] Work Phone: Hemoglobin (Bld) [Mass/Vol] 9.9 g/dL Abnormal 12.0 - 15.0 g/dL [facility]; [facility] [employer] [facility] Work Phone: Lymphocytes/100 WBC (Bld) 13.6 % Abnormal 19 - 41 [facility]; [facility] Work Phone: MCH (RBC) [Entitic mass] 27.3 pg Normal 27.0 - 32.0 pg [facility]; [facility] Work Phone: MCHC (RBC) [Mass/Vol] 30.6 g/dL Abnormal 32 - 3 6 g/dL [facility]; [facility]. Work Phone: MCV (RBC) [Entitic vol] 89.5 fL Normal 81 - 99 fL [facility]; [facility] Work Phone: Monocytes/100 WBC (Bld) 11.3 % Abnormal 0 - 10 [facility]; [facility] [employer] [facility]. Work Phone: Neutrophils/100 WBC (Bld) 73.6 % Abnormal 47 - 70 [facility]; [facility]. Work Phone: Nucleated RBC (Bld) [#/Vol] 0 10*3/uL Normal 0 - 5 [facility]; [facility]. Work Phone: Platelet mean volume (Bld) [Entitic vol] 9.0 fL Normal 6.2 - 12.0 fL [facility]; [facility]. Work Phone: Platelets (Bld) [#/Vol] 302 10*3/uL Normal 150 - 450 K/mm3 [facility]; [facility] Work Phone: RBC (Bld) [#/Vol] 3.62 10*6/uL Abnormal 4.2 - 5.4 {M/mm3} [facility].; [facility]. Work Phone: WBC (Bld) [#/Vol] 6.9 10*3/uL Normal 4.4 - 11.0 K/mm3 [facility].; [facility]. Work Phone: No Panel Informationon 04-17 Absolute Lymph 0.94 {X10_3/uL} Normal 0.83 - 4.51 {X10_3/uL} [facility] [employer] [facility].; [facility]. Work Phone: Absolute Neut 5.1 {X10_3/uL} Normal 2.0 - 7.7 {X10_3/uL} [facility] Hospital[facility].; [employer] [facility]. Work Phone: ALK P 101 U/L Normal 45 - 117 U/L [facility].; [facility]. Work Phone: BUN/CRE 11.4 {RATIO} Normal 10 - 20 {RATIO} [facility] HospitalMon[facility] [employer] [facility].; [employer] [facility] HospitalW[facility]. Work Phone: ECRCL 37.44 ml/min Normal [facility].; [employer] [facility] HospitalW[facility]. Work Phone: EST GFR - AA 79 mL/min Normal [facility] [employer] [facility].; [facility] [facility] HospitalW[facility]. Work Phone: GAP 5 Normal 5 - 15 [facility] [employer] [facility].; [facility] [employer] [facility] CenterW[facility]. Work Phone: IG% 0.300 Normal 0.0 - 0.9 [facility] [employer] [facility].; [facility] SYSTEMC[facility] HospitalMon[employer] [facility] Work Phone: RDW SD 43.8 fL Normal 35.1 - 43.9 fL [facility]; [facility] Work Phone: T PROT 5.8 g/dL Abnormal 6.4 - 8.2 g/dL [facility]; [facility] Work Phone: No Panel InformationOrdered By: Karon Nunes on 04-17-2023 Streptococcus pneumoniae Antigen (M [facility] Respiratory pathogens detect ion panel by molecular detection methodOrdered By: Karon Nunes on 04-17-2023 Respiratory pathogens DNA and RNA panel ZAID+probe (Resp) [facility] Serum or plasma albumin candice urement (mass/volume)Ordered By: Karon Nunes on 04-17-2023 Albumin [Mass/Vol] 2.5 g/dL Abnormal 3.2 - 5.0 g/dL [facility] Serum or plasma albumin/glob ulin mass ratioOrdered By: Karon Nunes on 04-17-2023 Albumin/Globulin [Mass ratio] 0.8 {ratio} Abnormal 0.9 - 2.4 {RATIO} [facility] Thin prep Papanicolaou smear with manual screeningOrdered By: Karon Nunes on 04-17-2023 Thin prep Papanicolaou smear with manual screening 16 U/L 15-37 [facility] Urine Legionella pneumophila antigen detectionOrdered By: Karon Nunes on 04-17-2023 L. pneumophila Ag Ql (U) [facility] Basophil percentageOrdered B y: Nicholas Cohen on 04-16-2023 Basophil percentage 10-25 SEEN /hpf 0-5 [facility] Bilirubin Test strip Ql (U)O rdered By: Nicholas Cohen on 04-16-2023 Bilirubin Ql (U) Negative Negative [facility] Ketones Test strip Ql (U)Ord ered By: Nicholas Cohen on 04-16-2023 Ketones Ql (U) Negative Negative [facility] Laboratory - Chemistry and C hemistry - challengeOrdered By: Karon Nunes on 04-16-2023 Magnesium [Mass/Vol] 2.0 mg/dL Normal 1.6 - 2 .6 mg/dL [facility] Laboratory - Chemistry and C hemistry - challengeon 04-16-2023 Albumin [Mass/Vol] 3.1 g/dL Abnormal 3.2 - 5.0 g/dL [facility]; [facility] Work Phone: Albumin/Globulin [Mass ratio] 0.8 {ratio} Abnormal 0.9 - 2.4 {RATIO} [facility]; [facility] Work Phone: ALT [Catalytic activity/Vol] 17 U/L Normal 13 - 56 U/L [facility]; [facility] Work Phone: AST [Catalytic activity/Vol] 18 U/L Normal 15 - 37 U/L [facility]; [facility] Work Phone: Bilirubin [Mass/Vol] 0.50 mg/dL Normal 0.20 - 1.00 mg/dL [facility]; [facility] Work Phone: Chloride [Moles/Vol] 101 mmol/L Normal 98 - 10 7 mmol/L [facility]; [facility] Work Phone: CO2 [Moles/Vol] 29.0 mmol/L Normal 21.0 - 32.0 mmol/L [facility]; [facility] Work Phone: Creatinine [Mass/Vol] 0.95 mg/dL Normal 0.55 - 1.02 mg/dL [facility]; [facility] Work Phone: GFR/1.73 sq M.predicted among non-blacks MDRD (S/P/Bld) [Vol rate/Area] 60 mL/min/{1.73_m2} Normal [facility]; [facility] Work Phone: Globulin (S) [Mass/Vol] 3.9 g/dL Normal 2.2 - 4.2 g/dL [facility]; [facility] Work Phone: Glucose [Mass/Vol] 100 mg/dL Normal 74 - 106 mg/dL [facility]; [facility] Work Phone: Magnesium [Mass/Vol] 15 mg/dL Abnormal [facility]; [facility] Work Phone: Magnesium [Mass/Vol] 8.7 mg/dL Normal 8.5 - 1 0.1 mg/dL [facility]; [facility] Work Phone: Potassium [Moles/Vol] 3.3 mmol/L Abnormal 3.5 - 5.1 mmol/L [facility]; [facility] Work Phone: Sodium [Moles/Vol] 135 mmol/L Abnormal 136 - 145 mmol/L [facility]; [facility] Work Phone: Urea nitrogen [Mass/Vol] 14 mg/dL Normal 7 - 18 mg/dL [facility]; [facility] [employer] [facility] Work Phone: Laboratory - Microbiology an d Antimicrobial susceptibilityon 04-16-2023 Bacteria identified Cx Nom (Unsp spec) 1+ Normal [facility]; [facility] [employer] [facility] Work Phone: L. pneumophila Ag Ql (U) See Note Normal [facility]; [facility], [facility]. Work Phone: Respiratory pathogens DNA and RNA 12b panel ZAID+probe (Unsp spec) See Note Normal [facility], [facility]. Work Phone: S. pneumoniae Ag LA Ql (Unsp spec) See Note Normal [facility], [facility]. Work Phone: Laboratory - Urinalysison Mucus Ql (Urine sed) 0 SEEN Normal [facility].; [facility]. Work Phone: Mucus LM Ql (Urine sed)Order ed By: Nicholas Cohen on 04-16-2023 Mucus Ql (Urine sed) 0 SEEN /hpf [facility] Nitrite ur dipstickOrdered B y: Nicholas Cohen on 04-16-2023 Nitrite Ql (U) Negative Normal [facility] No Panel InformationOrdered By: Nicholas Cohen on 04-16-2023 Troponin I High Sensitivity 14 pg/mL 3.0-54.0 [facility] Comment on above: Please Note: New Shaniqua t Units and Gender Specific Reference Ranges. For more information see Policy Stat Procedure [place] High Sensitivity Troponin (TNIH) and attachments. No Panel Informationon 04-16 ALK P 117 U/L Normal 45 - 117 U/L [facility].; [facility] [employer] [facility]. Work Phone: BILIRUBIN URINE Negative Normal [facility].; [facility], [facility]. Work Phone: BUN/CRE 14.7 {RATIO} Normal 10 - 20 {RATIO} [facility].; [facility], [facility]. Work Phone: ECRCL 34.69 ml/min Normal [facility].; [facility] [employer] [facility]. Work Phone: EPI,SQUAMOUS 0 SEEN Normal 5 - 10 {/hpf} [facility]; [facility]. Work Phone: EST GFR - AA 72 mL/min Normal [facility].; [facility]. Work Phone: GAP 5 Normal 5 - 15 [facility]; [facility]. Work Phone: GLUCOSE, UR Normal Normal [facility]; [facility]. Work Phone: KETONE UR Negative Normal [facility]; [facility] [employer] [facility]. Work Phone: LEUK ESTERASE 500 /ul Abnormal [facility]; [facility]. Work Phone: [phone] See Note Normal [facility]; [facility]. Work Phone: OCCULT BLOOD-UR 25 /ul Abnormal [facility] [employer] [facility]. Work Phone: pH UR 7.0 Normal 5.0 - 8.0 [facility]; [facility] [employer] [facility]. Work Phone: RBC 0-5 SEEN Normal 0 - 5 {/hpf} [facility]; [facility], [facility]. Work Phone: SP.GR. DIPSTX 1.010 Normal 1.002 - 1.030 [facility]; [facility] [employer] [facility] Work Phone: T PROT 7.0 g/dL Normal 6.4 - 8.2 g/dL [facility] [employer] [facility].; [facility] [employer] [facility]. Work Phone: TROPONIN-I HS 14 pg/mL Normal 3.0 - 54.0 pg/mL [facility].; [facility] [employer] [facility]. Work Phone: URC See Note Normal [facility].; [facility] [employer] [facility]. Work Phone: UROBILI Normal Normal [facility].; [facility] [employer] [facility]. Work Phone: WBC 10-25 SEEN Normal 0 - 5 {/hpf} [facility].; [facility] [employer] [facility] Work Phone: Protein Test strip Ql (U)Ord ered By: Nicholas Cohen on 04-16-2023 Protein Ql (U) 15 mg/dl Negative [facility] Squamous epithelial cells de tection in urine sediment by light microscopyOrdered By: Nicholas Cohen on 04-16-2023 Epithelial cells.squamous LM Ql (Urine sed) 0 SEEN /hpf 5-10 [facility] Urine blood detectionOrdered By: Nicholas Cohen on 04-16-2023 RBC Ql (U) 25 /ul Negative [facility] RBC Ql (U) 0-5 SEEN /hpf 0-5 [facility] Urine clarityOrdered By: Geremias Cohen on 04-16-2023 Clarity (U) Sl. Cloudy Normal [facility] Urine color determinationOrd ered By: Nicholas Cohen on 04-16-2023 Color (U) Yellow Normal [facility] Urine glucose detectionOrder ed By: Nicholas Cohen on 04-16-2023 Glucose Ql (U) Normal mg/dl Normal [facility] Urine leukocyte esterase det ection by dipstickOrdered By: Nicholas Cohen on 04-16-2023 Leukocyte esterase Test strip Ql (U) 500 /ul Negative [facility] Urine pHOrdered By: Nicholas bishop on 04-16-2023 pH (U) 7.0 [pH] 5.0 - 8.0 [facility] Urine sediment bacteria coun t by microscopy (number/high power field)Ordered By: Nicholas Cohen on 04-16-2023 Bacteria LM.HPF (Urine sed) [#/Area] 1 /[HPF] None Seen [facility] Urine specific gravity measu rementOrdered By: Nicholas Cohen on 04-16-2023 Specific gravity (U) [Rel density] 1.010 1.002-1.03 0 [facility] Urobilinogen Auto test strip Ql (U)Ordered By: Nicholas Cohen on 04-16-2023 Urobilinogen Ql (U) Normal mg/dl Normal [facility] Culture, urineOrdered By: Julia Grigsby on 04-06-2023 Bacteria identified Cx Nom (U) GPC Poss Enterococcus sp [facility] Basophil percentageOrdered B y: Elliott Grigsby on 04-05-2023 Basophil percentage 0-5 SEEN /hpf 0-5 [facility] Comment on above: Previous reported re sult: 0 SEEN /hpfEdited by: KAMAR on 04/05/23:1616 AMENDED REPORT 04/05/23 1616 WBC previously reported as: 0 SEEN /hpf Bilirubin Test strip Ql (U)O rdered By: Elliott Grigsby on 04-05-2023 Bilirubin Ql (U) 1 mg/dL Negative [facility] Comment on above: COLOR OF URINE MAY A FFECT DIPSTICK RESULTS. Calcium oxalate crystals det ection in urine sediment by light microscopyOrdered By: Elliott Grigsby on 04-05-2023 Calcium oxalate crystals LM Ql (Urine sed) 2+ /hpf [facility] Hyaline casts LM.LPF (Urine sed) [#/Area]Ordered By: Elliott Grigsby on 04-05-2023 Hyaline casts (Urine sed) [#/Area] 0 /[LPF] 0-5 [facility] Ketones Test strip Ql (U)Ord ered By: Elliott Grigsby on 04-05-2023 Ketones Ql (U) Negative Negative [facility] Laboratory - Chemistry and C hemistry - challengeon 04-05-2023 Bilirubin Ql (U) Small (1+) [facility] Glucose Ql (U) Negative [facility] Ketones Ql (U) Small (15+) [facility] pH (U) 5.0 [pH] [facility] Specific gravity (U) [Rel density] 1.015 [facility] Urobilinogen (U) [Mass/Vol] 1 mg/dL [facility] Laboratory - Hematology and Cell countson 04-05-2023 Hemoglobin Ql (U) Negative [facility] Laboratory - Specimen inform ationon 04-05-2023 Clarity (U) Clear [facility] Color (U) Opal [facility] Laboratory - Urinalysison Nitrite Ql (U) Positive [facility] Protein Ql (U) 3+ [facility] Magnesium ammonium phosphate crystal detectionOrdered By: lEliott Grigsby on 04-05-2023 Triple phosphate crystals LM Ql (Urine sed) 0 SEEN /hpf [facility] Mucus LM Ql (Urine sed)Order ed By: Elliott Grigsby on 04-05-2023 Mucus Ql (Urine sed) 0 SEEN /hpf [facility] Nitrite Test strip Ql (U)Ord ered By: Elliott Grigsby on 04-05-2023 Nitrite Ql (U) Negative Negative [facility] No Panel InformationOrdered By: Elliott Grigsby on 04-05-2023 Urine Transitional Epithelial Cells 0 SEEN /hpf 0-5 [facility] No Panel Informationon 04-05 Urine Leukocytes Negatve [facility] Urine Non-Hemolyzed Blood [facility] Protein Test strip Ql (U)Ord ered By: Elliott Grigsby on 04-05-2023 Protein Ql (U) 30 mg/dl Negative [facility] Squamous epithelial cells de tection in urine sediment by light microscopyOrdered By: Elliott Grigsby on 04-05-2023 Epithelial cells.squamous LM Ql (Urine sed) 0-5 SEEN /hpf 5-10 [facility] Comment on above: Previous reported re sult: 0 SEEN /hpfEdited by: KAMAR on 04/05/23:1616 AMENDED REPORT 04/05/23 1616 SQUAM EPI previously reported as: 0 SEEN /hpf Urine blood detectionOrdered By: Elliott Grigsby on 04-05-2023 RBC Ql (U) 10 /ul Negative [facility] RBC Ql (U) 0 SEEN /hpf 0-5 [facility] Urine clarityOrdered By: Skyler Grigsby on 04-05-2023 Clarity (U) Clear Clear [facility] Urine coarse granular cast d etectionOrdered By: Elliott Grigsby on 04-05-2023 Coarse Granular Casts LM Ql (Urine sed) 0 SEEN /lpf 0-5 /lpf [facility] Urine color determinationOrd ered By: Elliott Grigsby on 04-05-2023 Color (U) Yellow Yellow [facility] Urine glucose detectionOrder ed By: Elliott Grigsby on 04-05-2023 Glucose Ql (U) Normal mg/dl Normal [facility] Urine leukocyte esterase det ection by dipstickOrdered By: Elliott Grigsby on 04-05-2023 Leukocyte esterase Test strip Ql (U) 25 /ul Negative [facility] Urine pHOrdered By: Elliott dickerson on 04-05-2023 pH (U) 6.0 [pH] 5.0 - 8.0 [facility] Urine sediment bacteria coun t by microscopy (number/high power field)Ordered By: Elliott Grigsby on 04-05-2023 Bacteria LM.HPF (Urine sed) [#/Area] 0 /[HPF] None Seen [facility] Urine sediment erythrocyte c ast detection by light microscopyOrdered By: Elliott Grigsby on 04-05-2023 RBC casts LM Ql (Urine sed) 0 SEEN /lpf None Seen [facility] Urine sediment fine granular cast count by microscopy (number/low power field)Ordered By: Elliott Grigsby on 04-05-2023 Fine Granular Casts LM.LPF (Urine sed) [#/Area] 0 SEEN /lpf 0-5 [facility] Urine sediment leukocyte bianca t count by microscopy (number/low power field)Ordered By: Elliott Grigbsy on 04-05-2023 WBC casts LM.LPF (Urine sed) [#/Area] 0 SEEN /lpf None Seen [facility] Urine sediment renal epithel ial cell count by microscopy (number/high power field)Ordered By: Elliott Grigsby on 04-05-2023 Epithelial cells.renal LM.HPF (Urine sed) [#/Area] 0 /[HPF] 0-5 [facility] Urine sediment unidentified crystal count by microscopy (number/high powered field)Ordered By: Elliott Grigsby on 04-05-2023 Unidentified crystals LM.HPF (Urine sed) [#/Area] 0 SEEN /hpf None Seen [facility] Urine sediment uric acid cry stal count by microscopy (number/high power field)Ordered By: Elliott Grigsby on 04-05-2023 Urate crystals LM.HPF (Urine sed) [#/Area] 0 /[HPF] [facility] Urine specific gravity measu rementOrdered By: Elliott Grigsby on 04-05-2023 Specific gravity (U) [Rel density] 1.025 1.002-1.03 0 [facility] Urobilinogen Auto test strip Ql (U)Ordered By: Elliott Grigsby on 04-05-2023 Urobilinogen Ql (U) 1 mg/dl Normal [facility] Waxy casts detection in urin e sediment by light microscopyOrdered By: Elliott Grigsby on 04-05-2023 Waxy casts LM Ql (Urine sed) 0 SEEN /lpf None Seen [facility] .Auto Diffon 11-14-2022 Basophil, Absolute 0.1 10 3/mcL Normal 0.0-0.3 [facility] ([place]) Comment on above: Performed By: #### A DIFF, ANEU, CBC #### [address] [address] Basophils/100 WBC (Bld) 1.0 % Normal 0.0 - 2.5 % [facility] ([place]) Comment on above: Performed By: #### A DIFF, ANEU, CBC #### [address] [address] Eosinophil, Absolute 0.1 10 3/mcL Normal 0.0-0.7 [facility] ([place]) Comment on above: Performed By: #### A DIFF, ANEU, CBC #### [address] [address] Eosinophils/100 WBC (Bld) 2.0 % Normal 0.0 - 6.0 % [facility] ([place]) Comment on above: Performed By: #### A DIFF, ANEU, CBC #### [address] [address] Lymphocyte, Absolute 1.9 10 3/mcL Normal 0.9-4.3 [facility] ([place]) Comment on above: Performed By: #### A DIFF, ANEU, CBC #### [address] [address] Lymphocytes/100 WBC (Bld) 25.6 % Normal 20.0 - 40.0 % [facility] ([place]) Comment on above: Performed By: #### A DIFF, ANEU, CBC #### [address] [address] Monocyte, Absolute 0.6 10 3/mcL Normal 0.1-1.4 [facility] ([place]) Comment on above: Performed By: #### A DIFF, ANEU, CBC #### [address] [address] Monocytes/100 WBC (Bld) 8.5 % Normal 2.0 - 13.0 % [facility] ([place]) Comment on above: Performed By: #### A DIFF, ANEU, CBC #### [address] [address] Neutrophils/100 WBC (Bld) 62.9 % Normal 50.0 - 75.0 % [facility] ([place]) Comment on above: Performed By: #### A DIFF, ANEU, CBC #### [address] [address] .NEUABSon 11-14-2022 Neutrophil, Absolute 4.7 10 3/mcL Normal 2.3-8.1 [facility] ([place]) Comment on above: Performed By: #### A DIFF, ANEU, CBC #### [address] [address] CBCon 11-14-2022 Erythrocyte distribution width (RBC) [Ratio] 16.2 % Abnormal 11.5 - 15.5 % [facility] ([place]) Comment on above: Performed By: #### A DIFF, ANEU, CBC #### [address] [address] Hematocrit (Bld) [Volume fraction] 34.8 % Normal 34.0 - 46.0 % [facility] ([place]) Comment on above: Performed By: #### A DIFF, ANEU, CBC #### [place] [id number] Hgb 11.3 G/dL Low 12.0-16.0 [facility] ([place]) Comment on above: Performed By: #### A DIFF, ANEU, CBC #### [address] [address] MCH (RBC) [Entitic mass] 28.8 pg Normal 27.0 - 33.0 pg [facility] ([place]) Comment on above: Performed By: #### A DIFF, ANEU, CBC #### [place] [id number] MCHC 32.5 G/dL Normal 32.0-36.0 [facility] ([place]) Comment on above: Performed By: #### A DIFF, ANEU, CBC #### [place] [address] MCV (RBC) [Entitic vol] 88.6 fL Normal 80.0 - 99.0 fL [facility] ([place]) Comment on above: Performed By: #### A DIFF, ANEU, CBC #### [place] [id number] Platelet 362 10 3/mcL Normal 150-450 [facility] ([place]) Comment on above: Performed By: #### A DIFF, ANEU, CBC #### [place] [address] Platelet mean volume (Bld) [Entitic vol] 7.1 fL Normal 6.6 - 10.5 fL [facility] ([place]) Comment on above: Performed By: #### A DIFF, ANEU, CBC #### [place] [id number] RBC 3.92 10 6/mcL Low 4.10-5.30 [facility] ([place]) Comment on above: Performed By: #### A DIFF, ANEU, CBC #### [place] [address] WBC 7.5 10 3/mcL Normal 4.5-10.8 [facility] ([place]) Comment on above: Performed By: #### A DIFF, ANEU, CBC #### [place] [id number] Laboratory - Hematology and Cell countson 11-13-2022 Basophils (Bld) [#/Vol] 0.1 {10^3/mcL} Normal 0.0 - 0.3 {10^3/mcL} [facility] [employer] [facility] Work Phone: Eosinophils (Bld) [#/Vol] 0.1 {10^3/mcL} Normal 0.0 - 0.7 {10^3/mcL} [facility].; [facility] [employer] [facility]. Work Phone: Hemoglobin (Bld) [Mass/Vol] 11.3 g/dL Abnormal 12.0 - 16.0 g/dL [facility]; [facility] [employer] [facility] Work Phone: Lymphocytes (Bld) [#/Vol] 1.9 {10^3/mcL} Normal 0.9 - 4.3 {10^3/mcL} [facility].; [facility] [employer] [facility]. Work Phone: MCHC (RBC) [Mass/Vol] 32.5 g/dL Normal 32.0 - 36.0 g/dL [facility]; [facility] [employer] [facility]. Work Phone: Monocytes (Bld) [#/Vol] 0.6 {10^3/mcL} Normal 0.1 - 1.4 {10^3/mcL} [facility] [employer] [facility].; [facility] [employer] [facility]. Work Phone: Neutrophils (Bld) [#/Vol] 4.7 {10^3/mcL} Normal 2.3 - 8.1 {10^3/mcL} [facility] [employer] [facility].; [facility] [employer] [facility]. Work Phone: Platelets (Bld) [#/Vol] 362 {10^3/mcL} Normal 150 - 450 {10^3/mcL} [facility] [employer] [facility] [employer] [facility]. Work Phone: RBC (Bld) [#/Vol] 3.92 {10^6/mcL} Abnormal 4.10 - 5.30 {10^6/mcL} [facility].; [facility] [facility] [employer] [facility]. Work Phone: WBC (Bld) [#/Vol] 7.5 {10^3/mcL} Normal 4.5 - 10 .8 {10^3/mcL} [facility] [employer] [facility].; [employer] [facility] [employer] [facility]. Work Phone: No Panel Informationon 11-13 Basophil, Absolute 0.1 {10^3/mcL} Normal 0.0 - 0 .3 {10^3/mcL} [facility] [employer] [facility].; [employer] [facility] [employer] [facility]. Work Phone: Eosinophil, Absolute 0.1 {10^3/mcL} Normal 0.0 - 0.7 {10^3/mcL} [facility] [employer] [facility].; [facility] [employer]AN [employer] [facility] [employer] [facility]. Work Phone: Lymphocyte, Absolute 1.9 {10^3/mcL} Normal 0.9 - 4.3 {10^3/mcL} [facility] [employer] [facility].; [employer] [facility] [employer] [facility]. Work Phone: Monocyte, Absolute 0.6 {10^3/mcL} Normal 0.1 - 1 .4 {10^3/mcL} [facility] [employer] [facility].; [employer] [facility] Le[employer] [employer] [facility], [employer]. Work Phone: Neutrophil, Absolute 4.7 {10^3/mcL} Normal 2.3 - 8.1 {10^3/mcL} [employer] [facility].; [employer] [facility] Le[employer] [facility], [employer]. Work Phone: Laboratory - Chemistry and C hemistry - challengeon 06-30-2022 Albumin [Mass/Vol] 1.0 g/dL Normal 0.9 - 1.6 [facility]; [facility] Albumin [Mass/Vol] 3.4 g/dL Normal 3.4 - 5.0 g/dL [facility]; [facility] ALT [Catalytic activity/Vol] 23 U/L Normal 14 - 59 U/L [facility]; [facility] ALT No additional P-5'-P [Catalytic activity/Vol] 23 U/L Normal 14 - 59 U/L [facility]; [facility] Anion gap [Moles/Vol] 10 mmol/L Normal 10 - 2 0 mmol/L [facility]; [facility] AST [Catalytic activity/Vol] 31 U/L Normal 13 - 39 U/L [facility]; [facility] Bilirubin [Mass/Vol] 0.3 mg/dL Normal 0.2 - 1 .0 mg/dL [facility]; [facility] Calcium [Mass/Vol] 9.0 mg/dL Normal 8.5 - 10. 1 mg/dL [facility]; [facility] Chloride [Moles/Vol] 102 mmol/L Normal 98 - 10 7 mmol/L [facility]; [facility] Cholesterol [Mass/Vol] 193 mg/dL Normal 0 - 240 mg/dL [facility]; [facility] Cholesterol in HDL [Mass or moles/Vol] 50 mg/dL Normal 40 - 60 mg/dL [facility]; [facility] Cholesterol in LDL [Mass/Vol] 128 mg/dL Normal 0 - 129 mg/dL [facility]; [facility] Cholesterol.total/Cho lesterol in HDL [Mass ratio] 3.9 {ratio} Normal 0.0 - 5.0 [facility]; [facility] CO2 [Moles/Vol] 32.3 mmol/L Abnormal 21.0 - 32.0 mmol/L [facility]; [facility] Creatinine [Mass/Vol] 0.84 mg/dL Normal 0.55 - 1.02 mg/dL [facility]; [facility] GFR/1.73 sq M.predicted among blacks MDRD (S/P/Bld) [Vol rate/Area] mL/min/{1.73_m2} Normal 60 - 999 {ML/MINUTE } [facility]; [facility] GFR/1.73 sq M.predicted MDRD (S/P/Bld) [Vol rate/Area] mL/min/{1.73_m2} Normal 60 - 999 {ML/MINUTE } [facility].; [facility], [facility]. Globulin (S) [Mass/Vol] 3.3 g/dL Normal 1.5 - 3.8 g/dL [facility]; [facility], [facility] Glucose [Mass/Vol] 92 mg/dL Normal 74 - 106 mg/dL [facility]; [facility], [facility] Lipid 1996 panel Normal [facility]; [facility] Potassium [Moles/Vol] 3.6 mmol/L Normal 3.5 - 5.1 mmol/L [facility]; [facility], [facility] Protein [Mass/Vol] 6.7 g/dL Normal 6.4 - 8.2 g/dL [facility]; [facility], [facility] Sodium [Moles/Vol] 141 mmol/L Normal 136 - 145 mmol/L [facility]; [facility], [facility] Triglyceride [Mass/Vol] 74 mg/dL Normal 0 - 150 mg/dL [facility].; [facility]. TSH Qn 2.16 m[IU]/L Normal 0.35 - 3.74 {uIU/ml} [facility]; [facility] Urea nitrogen [Mass/Vol] 14 mg/dL Normal 7 - 18 mg/dL [facility]; [facility] Urea nitrogen/Creatinine [Mass ratio] 17 {ratio} Normal 0 - 30 {ratio} [facility].; [facility] Laboratory - Hematology and Cell countson 06-30-2022 Basophils (Bld) [#/Vol] 0.00 {x10EE3/UL} Normal 0.00 - 0.10 {x10EE3/UL } [facility].; [facility] Basophils/100 WBC (Bld) 0.6 % Normal 0.0 - 2.0 % [facility].; [facility] Eosinophils (Bld) [#/Vol] 0.10 {x10EE3/UL} Normal 0.00 - 0.50 {x10EE3/UL } [facility].; [facility] Eosinophils/100 WBC (Bld) 2.0 % Normal 0.0 - 7.0 % [facility].; [facility] Erythrocyte distribution width (RBC) [Ratio] 13.1 % Normal 12.0 - 15.6 % [facility]; [facility], [facility] Hematocrit (Bld) [Volume fraction] 35.3 % Normal 34.0 - 46.0 % [facility].; [facility], [facility] Hemoglobin (Bld) [Mass/Vol] 11.3 g/dL Abnormal 12.0 - 16.0 g/dL [facility].; [facility] Lymphocytes (Bld) [#/Vol] 1.50 {x10EE3/UL} Normal 0.80 - 2.80 {x10EE3/UL } [facility].; [facility] [employer] [facility], [employer]. Lymphocytes/100 WBC (Bld) 23.7 % Normal 20.0 - 45.0 % [facility], [employer].; [facility] [employer] [facility], [employer] MCH (RBC) [Entitic mass] 28 pg Normal 27 - 33 pg [facility].; [facility] [employer] [facility], [employer] MCHC (RBC) [Mass/Vol] 32 {X10_3} Normal 32 - 3 6 {X10_3} [facility], [employer].; [facility] [employer] [facility], [employer]. MCV (RBC) [Entitic vol] 88 fL Normal 80 - 99 fL [facility].; [facility] [employer] [facility], [employer]. Monocytes (Bld) [#/Vol] 1.00 {x10EE3/UL} Normal 0.20 - 1.00 {x10EE3/UL } [facility].; [facility] [employer] [facility], [employer]. Monocytes/100 WBC (Bld) 15.0 % Abnormal 0.0 - 10.0 % [facility].; [facility] [employer], [employer]. Morphology Sonny (Bld) [Interp] N/A Normal [facility].; [facility], [employer]. Neutrophils (Bld) [#/Vol] 3.80 {x10EE3/UL} Normal 1.50 - 7.10 {x10EE3/UL } [facility].; [facility], [employer] Neutrophils/100 WBC (Bld) 58.7 % Normal 46.0 - 76.0 % [facility].; [facility] [employer] Platelet mean volume (Bld) [Entitic vol] 7.6 fL Normal 6.6 - 10.5 fL [facility] [employer] [facility], [employer]. Platelets (Bld) [#/Vol] 461 {x10EE3/UL} Abnormal 150 - 450 {x10EE3/UL } [facility].; [facility] [employer] [facility]. RBC (Bld) [#/Vol] 4.00 {x_10EE6/UL} Abnormal 4.10 - 5.30 {x_10EE6/U L} [facility] [employer] [facility].; [facility] [employer] [facility]. WBC (Bld) [#/Vol] 6.5 {x_10EE3/UL} Normal 4.5 - 10.8 {x_10EE3/U L} [facility] [employer] [facility].; [facility] [employer] [facility]. No Panel Informationon 06-30 AGE 82 {years} Normal [facility] [employer] [facility].; [facility] [employer] [facility]. ALK PHOS 111 U/L Normal 46 - 116 U/L [facility] [employer] [facility].; [facility] [employer] [facility]. CBC + DIFF Normal [facility] [employer].; [facility] [employer]. CMP with eGFR Normal [facility] [employer] [facility].; [facility] [facility]. MANUAL DIFF N/A Normal [facility] [employer]; [facility] [employer] [facility]. Absolute lymphocyte counton 02-15-2022 Lymphocytes Auto (Unsp spec) [#/Vol] 2.15 10*3/uL 0.83-4.51 [facility] Work Phone: Basophil percentageon 2021 Basophils/100 WBC (Bld) 0.4 % 0-1 [facility] Work Phone: Chloride [Moles/Vol] 107 mmol/L 98-107 [facility] Work Phone: Eosinophils/100 WBC (Bld) 2.4 % 0-5 [facility] Work Phone: Glucose [Mass/Vol] 98 mg/dL 74-106 [facility] [place] Work Phone: Neutrophils (Bld) [#/Vol] 3.5 10*3/uL 2.0-7.7 [facility] Work Phone: Neutrophils/100 WBC (Bld) 52.1 % 47-70 [facility] Work Phone: Potassium [Moles/Vol] 4.3 mmol/L 3.5-5.1 [facility] Work Phone: Sodium [Moles/Vol] 139 mmol/L 136-145 [facility] Work Phone: WBC (Bld) [#/Vol] 6.8 10*3/uL 4.4-11.0 [facility] [place] Work Phone: [phone] Blood erythrocytes count (nu mber/volume)on 02-15-2022 RBC (Bld) [#/Vol] 3.76 10*6/uL 4.2-5.4 [facility] Work Phone: [phone] Blood hemoglobin measurement (mass/volume)on 02-15-2022 Hemoglobin (Bld) [Mass/Vol] 11.4 g/dL 12.0-15.0 [facility] Work Phone: Blood lymphocytes/100 leukoc yteson 02-15-2022 Lymphocytes/100 WBC (Bld) 31.7 % 19-41 [facility] Work Phone: Blood monocytes/100 leukocyt eson 02-15-2022 Monocytes/100 WBC (Bld) 13.1 % 0-10 [facility] Work Phone: [phone] Blood platelet mean volumeon 02-15-2022 Platelet mean volume (Bld) [Entitic vol] 9.0 fL 6.2-12.0 [facility] Work Phone: [phone] Determination of erythrocyte mean corpuscular volume (MCV)on 02-15-2022 MCV (RBC) [Entitic vol] 95.2 fL 81-99 [facility] Work Phone: Hematocrit Auto (Bld) [Volum e fraction]on 02-15-2022 Hematocrit (Bld) [Volume fraction] 35.8 % 37-47 [facility] Work Phone: Laboratory - Chemistry and C hemistry - challengeon 02-15-2022 CO2 [Moles/Vol] 26.0 mmol/L 21.0-32.0 [facility] Work Phone: Urea nitrogen/Creatinine [Mass ratio] 23.6 mg/mg 10-20 [facility] Work Phone: Laboratory - Hematology and Cell countson 02-15-2022 Erythrocyte distribution width (RBC) [Entitic vol] 46.2 fL 35.1-43.9 [facility] Work Phone: Erythrocyte distribution width (RBC) [Ratio] 13.3 % 11.6-14.6 [facility] Work Phone: Immature granulocytes/100 WBC (Bld) 0.300 % 0.0-0.9 [facility] Work Phone: Comment on above: IG% - Immature Granu locytes (promyelocytes, myelocytes and metamyelocytes) > 1% indicates that a LEFT SHIFT is Present. MCH (RBC) [Entitic mass] 30.3 pg 27.0-32.0 [facility] Work Phone: Nucleated RBC/100 WBC (Bld) [Ratio] 0 % 0-5 [facility] Work Phone: MCHC Auto (RBC) [Mass/Vol]on 02-15-2022 MCHC (RBC) [Mass/Vol] 31.8 g/dL 32-36 [facility] Work Phone: No Panel Informationon 02-15 Estimated Creatinine Clearance Calc 35.94 ml/min [facility] Work Phone: Estimated GFR (MDRD) Amer 64 mL/min >60 [facility] Work Phone: Comment on above: GFR Calc Estimated GFR (MDRD) Non-Af Amer 53 mL/min >60 [facility] Work Phone: Comment on above: Non- GFR Calc Platelets bldon 02-15-2022 Platelets (Bld) [#/Vol] 296 10*3/uL 150-450 [facility] Work Phone: Serum or plasma calcium candice urement (mass/volume)on 02-15-2022 Calcium [Mass/Vol] 9.7 mg/dL 8.5-10.1 [facility] [facility] Work Phone: Serum or plasma creatinine m easurement (mass/volume)on 02-15-2022 Creatinine [Mass/Vol] 1.06 mg/dL 0.55-1.02 [facility] Work Phone: Comment on above: The validity of the calculated GFR & GFRAA in patients over 70 years has not been determined. Clinical correlation is essential. Serum or plasma urea nitroge n measurement (mass/volume)on 02-15-2022 Urea nitrogen [Mass/Vol] 25 mg/dL 7-18 [facility] Work Phone: Thin prep Papanicolaou smear with manual screeningon 02-15-2022 Thin prep Papanicolaou smear with manual screening 6 5-15 [facility] Work Phone: Serum or plasma folate measu rement (mass/volume)on 02-11-2022 Folate [Mass/Vol] 12.20 ng/mL 3.1-55.4 [facility] Work Phone: Absolute lymphocyte counton 12-28-2021 Lymphocytes Auto (Unsp spec) [#/Vol] 1.79 10*3/uL 0.83-4.51 [facility] Work Phone: Basophil percentageon 2021 Basophils/100 WBC (Bld) 0.7 % 0-1 [facility] Work Phone: Chloride [Moles/Vol] 108 mmol/L 98-107 [facility] Work Phone: Eosinophils/100 WBC (Bld) 2.7 % 0-5 [facility] Work Phone: Glucose [Mass/Vol] 96 mg/dL 74-106 [facility] Work Phone: Neutrophils (Bld) [#/Vol] 1.8 10*3/uL 2.0-7.7 [facility] Work Phone: Neutrophils/100 WBC (Bld) 39.9 % 47-70 [facility] Work Phone: Potassium [Moles/Vol] 3.8 mmol/L 3.5-5.1 [facility] Work Phone: Sodium [Moles/Vol] 142 mmol/L 136-145 [facility] Work Phone: WBC (Bld) [#/Vol] 4.4 10*3/uL 4.4-11.0 [facility] Work Phone: Blood erythrocytes count (nu mber/volume)on 12-28-2021 RBC (Bld) [#/Vol] 3.53 10*6/uL 4.2-5.4 [facility] Work [facility]: Blood hemoglobin measurement (mass/volume)on 12-28-2021 Hemoglobin (Bld) [Mass/Vol] 10.8 g/dL 12.0-15.0 [facility] Work Phone: Blood lymphocytes/100 leukoc yteson 12-28-2021 Lymphocytes/100 WBC (Bld) 40.6 % 19-41 [facility] Work Phone: Blood monocytes/100 leukocyt eson 12-28-2021 Monocytes/100 WBC (Bld) 15.6 % 0-10 [facility] Work Phone: Blood platelet mean volumeon 12-28-2021 Platelet mean volume (Bld) [Entitic vol] 8.8 fL 6.2-12.0 [facility] Work Phone: [phone] Determination of erythrocyte mean corpuscular volume (MCV)on 12-28-2021 MCV (RBC) [Entitic vol] 96.3 fL 81-99 [facility] Work Phone: Hematocrit Auto (Bld) [Volum e fraction]on 12-28-2021 Hematocrit (Bld) [Volume fraction] 34.0 % 37-47 [facility] Work Phone: Laboratory - Chemistry and C hemistry - challengeon 12-28-2021 CO2 [Moles/Vol] 29.0 mmol/L 21.0-32.0 [facility] Work Phone: Urea nitrogen/Creatinine [Mass ratio] 29.6 mg/mg 10-20 [facility] Work Phone: Laboratory - Hematology and Cell countson 12-28-2021 Erythrocyte distribution width (RBC) [Entitic vol] 49.6 fL 35.1-43.9 [facility] Work Phone: Erythrocyte distribution width (RBC) [Ratio] 13.9 % 11.6-14.6 [facility] Work Phone: Immature granulocytes/100 WBC (Bld) 0.500 % 0.0-0.9 [facility] Work Phone: Comment on above: IG% - Immature Granu locytes (promyelocytes, myelocytes and metamyelocytes) > 1% indicates that a LEFT SHIFT is Present. MCH (RBC) [Entitic mass] 30.6 pg 27.0-32.0 [facility] Work Phone: Nucleated RBC/100 WBC (Bld) [Ratio] 0 % 0-5 [facility] Work Phone: MCHC Auto (RBC) [Mass/Vol]on 12-28-2021 MCHC (RBC) [Mass/Vol] 31.8 g/dL 32-36 [facility] Work Phone: No Panel Informationon 12-28 Estimated Creatinine Clearance Calc 38.75 ml/min [facility] Work Phone: Estimated GFR (MDRD) Amer 114 mL/min >60 [facility] Work Phone: Comment on above: GFR Calc Estimated GFR (MDRD) Non-Af Amer 95 mL/min >60 [facility] Work Phone: Comment on above: Non- GFR Calc Platelets bldon 12-28-2021 Platelets (Bld) [#/Vol] 345 10*3/uL 150-450 [facility] Work Phone: Serum or plasma calcium candice urement (mass/volume)on 12-28-2021 Calcium [Mass/Vol] 8.8 mg/dL 8.5-10.1 [facility] Work Phone: Serum or plasma creatinine m easurement (mass/volume)on 12-28-2021 Creatinine [Mass/Vol] 0.64 mg/dL 0.55-1.02 [facility] Work Phone: Comment on above: The validity of the calculated GFR & GFRAA in patients over 70 years has not been determined. Clinical correlation is essential. Serum or plasma urea nitroge n measurement (mass/volume)on 12-28-2021 Urea nitrogen [Mass/Vol] 19 mg/dL 7-18 [facility] Work Phone: Thin prep Papanicolaou smear with manual screeningon 12-28-2021 Thin prep Papanicolaou smear with manual screening 5 5-15 [facility] Work Phone: Laboratory - Chemistry and C hemistry - challengeon 12-24-2021 Cobalamin (Vitamin B12) [Mass/Vol] 354 pg/mL 211-911 [facility] Work Phone: Absolute lymphocyte counton 12-21-2021 Lymphocytes Auto (Unsp spec) [#/Vol] 2.08 10*3/uL 0.83-4.51 [facility] Work Phone: Basophil percentageon 2021 Basophils/100 WBC (Bld) 0.8 % 0-1 [facility] Work Phone: Chloride [Moles/Vol] 103 mmol/L 98-107 [facility] Work Phone: Eosinophils/100 WBC (Bld) 2.3 % 0-5 [facility] Work Phone: Glucose [Mass/Vol] 100 mg/dL 74-106 [facility] Work Phone: Comment on above: Fasting Glucose resu lt from 100 to 125 mg/dL suggests IMPAIRED HOMEOSTASIS per A.D.A. criteria. Neutrophils (Bld) [#/Vol] 2.3 10*3/uL 2.0-7.7 [facility] Work Phone: Neutrophils/100 WBC (Bld) 43.7 % 47-70 [facility] Work Phone: Potassium [Moles/Vol] 3.7 mmol/L 3.5-5.1 [facility] Work Phone: [phone] Sodium [Moles/Vol] 139 mmol/L 136-145 [facility] Work Phone: WBC (Bld) [#/Vol] 5.2 10*3/uL 4.4-11.0 [facility] Work Phone: Blood erythrocytes count (nu mber/volume)on 12-21-2021 RBC (Bld) [#/Vol] 3.80 10*6/uL 4.2-5.4 [facility] Work Phone: Blood hemoglobin measurement (mass/volume)on 12-21-2021 Hemoglobin (Bld) [Mass/Vol] 11.3 g/dL 12.0-15.0 [facility] Work Phone: Blood lymphocytes/100 leukoc yteson 12-21-2021 Lymphocytes/100 WBC (Bld) 39.8 % 19-41 [facility] Work Phone: Blood monocytes/100 leukocyt eson 12-21-2021 Monocytes/100 WBC (Bld) 12.3 % 0-10 [facility] Work Phone: Blood platelet mean volumeon 12-21-2021 Platelet mean volume (Bld) [Entitic vol] 8.6 fL 6.2-12.0 [facility] Work Phone: Determination of erythrocyte mean corpuscular volume (MCV)on 12-21-2021 MCV (RBC) [Entitic vol] 96.3 fL 81-99 [facility] Work Phone: Hematocrit Auto (Bld) [Volum e fraction]on 12-21-2021 Hematocrit (Bld) [Volume fraction] 36.6 % 37-47 [facility] Work Phone: Laboratory - Chemistry and C hemistry - challengeon 12-21-2021 CO2 [Moles/Vol] 31.0 mmol/L 21.0-32.0 [facility] Work Phone: Urea nitrogen/Creatinine [Mass ratio] 28.6 mg/mg 10-20 [facility] Work Phone: Laboratory - Hematology and Cell countson 12-21-2021 Erythrocyte distribution width (RBC) [Entitic vol] 49.7 fL 35.1-43.9 [facility] Work Phone: Erythrocyte distribution width (RBC) [Ratio] 14.0 % 11.6-14.6 [facility] Work Phone: Immature granulocytes/100 WBC (Bld) 1.100 % 0.0-0.9 [facility] Work Phone: Comment on above: IG% - Immature Granu locytes (promyelocytes, myelocytes and metamyelocytes) > 1% indicates that a LEFT SHIFT is Present. MCH (RBC) [Entitic mass] 29.7 pg 27.0-32.0 [facility] Work Phone: Nucleated RBC/100 WBC (Bld) [Ratio] 0 % 0-5 [facility] Work Phone: MCHC Auto (RBC) [Mass/Vol]on 12-21-2021 MCHC (RBC) [Mass/Vol] 30.9 g/dL 32-36 [facility] Work Phone: No Panel Informationon 12-21 Estimated Creatinine Clearance Calc 38.75 ml/min [facility] Work Phone: Estimated GFR (MDRD) Amer 93 mL/min >60 [facility] Work Phone: Comment on above: GFR Calc Estimated GFR (MDRD) Non-Af Amer 77 mL/min >60 [facility] Work Phone: Comment on above: Non- GFR Calc Platelets bldon 12-21-2021 Platelets (Bld) [#/Vol] 426 10*3/uL 150-450 [facility] Work Phone: Serum or plasma calcium candice urement (mass/volume)on 12-21-2021 Calcium [Mass/Vol] 9.4 mg/dL 8.5-10.1 [facility] Work Phone: Serum or plasma creatinine m easurement (mass/volume)on 12-21-2021 Creatinine [Mass/Vol] 0.77 mg/dL 0.55-1.02 [facility] Work Phone: Comment on above: The validity of the calculated GFR & GFRAA in patients over 70 years has not been determined. Clinical correlation is essential. Serum or plasma urea nitroge n measurement (mass/volume)on 12-21-2021 Urea nitrogen [Mass/Vol] 22 mg/dL 7-18 [facility] Work Phone: Thin prep Papanicolaou smear with manual screeningon 12-21-2021 Thin prep Papanicolaou smear with manual screening 5 5-15 [facility] Work Phone: Basophil percentageon 2021 Basophil percentage 0 SEEN /hpf 0-5 [facility] Work Phone: Basophil percentage 4.7 mg/dL 2.5-4.9 [facility] Work Phone: Bilirubin [Mass/Vol] 0.20 mg/dL 0.20-1.00 [facility] Work Phone: Comment on above: For patients on eltr ombopag therapy, use of Dimension [place] TBIL is not recommended. Protein [Mass/Vol] 6.9 g/dL 6.4-8.2 [facility] Work Phone: Bilirubin Test strip Ql (U)o n 12-20-2021 Bilirubin Ql (U) Negative Negative [facility] Work Phone: Ketones Test strip Ql (U)on 12-20-2021 Ketones Ql (U) Negative Negative [facility] Work Phone: Laboratory - Chemistry and C hemistry - challengeon 12-20-2021 ALP [Catalytic activity/Vol] 76 U/L 45-117 [facility] Work Phone: ALT [Catalytic activity/Vol] 50 U/L 13-56 [facility] Work Phone: [phone] Globulin (S) [Mass/Vol] 3.8 g/dL 2.2-4.2 [facility] Work Phone: Mucus LM Ql (Urine sed)on Mucus Ql (Urine sed) 0 SEEN /hpf [facility] Work Phone: Nitrite Test strip Ql (U)on 12-20-2021 Nitrite Ql (U) Negative Negative [facility] Work Phone: Protein Test strip Ql (U)on 12-20-2021 Protein Ql (U) Negative Negative [facility] Work Phone: Serum or plasma albumin candice urement (mass/volume)on 12-20-2021 Albumin [Mass/Vol] 3.1 g/dL 3.2-5.0 [facility] Work Phone: Serum or plasma albumin/glob ulin mass ratioon 12-20-2021 Albumin/Globulin [Mass ratio] 0.8 {ratio} 0.9-2.4 [facility] Work Phone: Squamous epithelial cells de tection in urine sediment by light microscopyon 12-20-2021 Epithelial cells.squamous LM Ql (Urine sed) 0-5 SEEN /hpf 5-10 [facility] Work Phone: Thin prep Papanicolaou smear with manual screeningon 12-20-2021 Thin prep Papanicolaou smear with manual screening 35 U/L 15-37 [facility] Work Phone: Urine blood detectionon RBC Ql (U) Negative Negative [facility] Work Phone: RBC Ql (U) 0 SEEN /hpf 0-5 [facility] Work Phone: Urine clarityon 12-20-2021 Clarity (U) Clear Clear [facility] Work Phone: Urine color determinationon 12-20-2021 Color (U) Yellow Yellow [facility] Work Phone: Urine glucose detectionon Glucose Ql (U) Normal mg/dl Normal [facility] Work Phone: Urine leukocyte esterase det ection by dipstickon 12-20-2021 Leukocyte esterase Test strip Ql (U) Negative Negative [facility] Work Phone: Urine pHon 12-20-2021 pH (U) 6.0 [pH] 5.0 - 8.0 [facility] Work Phone: Urine sediment bacteria coun t by microscopy (number/high power field)on 12-20-2021 Bacteria LM.HPF (Urine sed) [#/Area] 0 /[HPF] None Seen [facility] Work Phone: Urine specific gravity measu rementon 12-20-2021 Specific gravity (U) [Rel density] 1.015 1.002-1.03 0 [facility] Work Phone: Urobilinogen Auto test strip Ql (U)on 12-20-2021 Urobilinogen Ql (U) Normal mg/dl Normal [facility] Work Phone: Laboratory - Chemistry and C hemistry - challengeon 12-17-2021 Magnesium [Mass/Vol] 2.0 mg/dL 1.6-2.6 [facility] Work Phone: Basophil percentageon 2021 Chloride [Moles/Vol] 109 mmol/L 98-107 [facility] Work Phone: Glucose [Mass/Vol] 103 mg/dL 74-106 [facility] Work Phone: Comment on above: Fasting Glucose resu lt from 100 to 125 mg/dL suggests IMPAIRED HOMEOSTASIS per A.D.A. criteria. Potassium [Moles/Vol] 3.4 mmol/L 3.5-5.1 [facility] Work Phone: Sodium [Moles/Vol] 138 mmol/L 136-145 [facility] Work Phone: Laboratory - Chemistry and C hemistry - challengeon 12-13-2021 CK [Catalytic activity/Vol] 839 U/L 26-192 [facility] Work Phone: CO2 [Moles/Vol] 21.0 mmol/L 21.0-32.0 [facility] Work Phone: Urea nitrogen/Creatinine [Mass ratio] 14.4 mg/mg 10-20 [facility] Work Phone: No Panel Informationon 12-13 Estimated Creatinine Clearance Calc 38.75 ml/min [facility] Work Phone: Estimated GFR (MDRD) Amer 135 mL/min >60 [facility] Work Phone: Comment on above: GFR Calc Estimated GFR (MDRD) Non-Af Amer 111 mL/min >60 [facility] Work Phone: Comment on above: Non- GFR Calc Serum or plasma calcium candice urement (mass/volume)on 12-13-2021 Calcium [Mass/Vol] 7.6 mg/dL 8.5-10.1 [facility] Work Phone: Serum or plasma creatinine m easurement (mass/volume)on 12-13-2021 Creatinine [Mass/Vol] 0.56 mg/dL 0.55-1.02 [facility] Work Phone: Comment on above: The validity of the calculated GFR & GFRAA in patients over 70 years has not been determined. Clinical correlation is essential. Serum or plasma urea nitroge n measurement (mass/volume)on 12-13-2021 Urea nitrogen [Mass/Vol] 8 mg/dL 7-18 [facility] Work Phone: Thin prep Papanicolaou smear with manual screeningon 07-01-2022 Thin prep Papanicolaou smear with manual screening 8 5-15 [facility] Work Phone: Basophil percentageon 2021 Basophil percentage 1.6 mg/dL 2.5-4.9 [facility] Work Phone: Laboratory - Chemistry and C hemistry - challengeon 12-12-2021 Magnesium [Mass/Vol] 2.3 mg/dL 1.6-2.6 [facility] Work Phone: Absolute lymphocyte counton 12-11-2021 Lymphocytes Auto (Unsp spec) [#/Vol] 1.05 10*3/uL 0.83-4.51 [facility] Work Phone: Basophil percentageon 2021 Basophils/100 WBC (Bld) 0.1 % 0-1 [facility] Work Phone: Bilirubin [Mass/Vol] 0.30 mg/dL 0.20-1.00 [facility] Work Phone: Comment on above: For patients on eltr ombopag therapy, use of Dimension [place] TBIL is not recommended. Eosinophils/100 WBC (Bld) 0.0 % 0-5 [facility] Work Phone: [phone] Neutrophils (Bld) [#/Vol] 10.8 10*3/uL 2.0-7.7 [facility] Work Phone: [phone] Neutrophils/100 WBC (Bld) 78.6 % 47-70 [facility] Work Phone: Protein [Mass/Vol] 6.3 g/dL 6.4-8.2 [facility] Work Phone: WBC (Bld) [#/Vol] 13.8 10*3/uL 4.4-11.0 [facility] Work Phone: Blood erythrocytes count (nu mber/volume)on 12-11-2021 RBC (Bld) [#/Vol] 3.71 10*6/uL 4.2-5.4 [facility] Work Phone: Blood hemoglobin measurement (mass/volume)on 12-11-2021 Hemoglobin (Bld) [Mass/Vol] 11.1 g/dL 12.0-15.0 [facility] Work Phone: Blood lymphocytes/100 leukoc yteson 12-11-2021 Lymphocytes/100 WBC (Bld) 7.6 % 19-41 [facility] Work Phone: Blood monocytes/100 leukocyt eson 12-11-2021 Monocytes/100 WBC (Bld) 13.1 % 0-10 [facility] Work Phone: Blood platelet mean volumeon 12-11-2021 Platelet mean volume (Bld) [Entitic vol] 9.4 fL 6.2-12.0 [facility] Work Phone: Determination of erythrocyte mean corpuscular volume (MCV)on 12-11-2021 MCV (RBC) [Entitic vol] 91.9 fL 81-99 [facility] Work Phone: Hematocrit Auto (Bld) [Volum e fraction]on 12-11-2021 Hematocrit (Bld) [Volume fraction] 34.1 % 37-47 [facility] Work Phone: Laboratory - Chemistry and C hemistry - challengeon 12-11-2021 ALP [Catalytic activity/Vol] 80 U/L 45-117 [facility] Work Phone: ALT [Catalytic activity/Vol] 45 U/L 13-56 [facility] Work Phone: Globulin (S) [Mass/Vol] 3.5 g/dL 2.2-4.2 [facility] Work Phone: Laboratory - Hematology and Cell countson 12-11-2021 Erythrocyte distribution width (RBC) [Entitic vol] 47.1 fL 35.1-43.9 [facility] Work Phone: Erythrocyte distribution width (RBC) [Ratio] 13.9 % 11.6-14.6 [facility] Work Phone: Immature granulocytes/100 WBC (Bld) 0.600 % 0.0-0.9 [facility] Work Phone: [phone] Comment on above: IG% - Immature Granu locytes (promyelocytes, myelocytes and metamyelocytes) > 1% indicates that a LEFT SHIFT is Present. MCH (RBC) [Entitic mass] 29.9 pg 27.0-32.0 [facility] Work Phone: Nucleated RBC/100 WBC (Bld) [Ratio] 0 % 0-5 [facility] Work Phone: MCHC Auto (RBC) [Mass/Vol]on 12-11-2021 MCHC (RBC) [Mass/Vol] 32.6 g/dL 32-36 [facility] Work Phone: Platelets bldon 12-11-2021 Platelets (Bld) [#/Vol] 276 10*3/uL 150-450 [facility] Work Phone: Review by pathologiston 11-14 Pathologist review Sonny (Unsp spec) [Interp] Reviewed [facility] Work Phone: Comment on above: Previous reported re sult: Pham dean Edited by: MAXI on 12/11/21:1238Neutrophilic leukocytosis.Clinical correlation necessary.Jagdish Helton M.D. 12/11/21 AMENDED REPORT 12/11/21 1238 PATH REV previously reported as: Pham dean Serum or plasma albumin candice urement (mass/volume)on 12-11-2021 Albumin [Mass/Vol] 2.8 g/dL 3.2-5.0 [facility] Work Phone: Serum or plasma albumin/glob ulin mass ratioon 12-11-2021 Albumin/Globulin [Mass ratio] 0.8 {ratio} 0.9-2.4 [facility] Work Phone: Serum procalcitonin measurem enton 12-11-2021 Procalcitonin [Mass/Vol] 4.19 ng/mL 0.00-0.09 [facility] Work Phone: Comment on above: A [...] smear with manual screening 123 U/L 15-37 [facility] Work Phone: Absolute lymphocyte counton 12-10-2021 Lymphocytes Auto (Unsp spec) [#/Vol] 1.00 10*3/uL 0.83-4.51 [facility] Work Phone: Amorphous sediment detection in urine sediment by light microscopyon 12-10-2021 Amorphous sediment LM Ql (Urine sed) 2+ [facility] Work Phone: Basophil percentageon 2021 Basophil percentage 50-100 SEEN /hpf 0-5 [facility] Work Phone: Basophils/100 WBC (Bld) 0.1 % 0-1 [facility] Work Phone: Bilirubin [Mass/Vol] 0.60 mg/dL 0.20-1.00 [facility] Work Phone: Comment on above: For patients on eltr ombopag therapy, use of Dimension [place] TBIL is not recommended. Chloride [Moles/Vol] 103 mmol/L 98-107 [facility] Work Phone: Eosinophils/100 WBC (Bld) 0.0 % 0-5 [facility] Work Phone: Glucose [Mass/Vol] 130 mg/dL 74-106 [facility] Work Phone: Comment on above: Fasting Glucose resu lt greater than or equal to 126 mg/dL suggests DIABETES MELLITUS per A.D.A. criteria. Neutrophils (Bld) [#/Vol] 10.9 10*3/uL 2.0-7.7 [facility] Work Phone: Neutrophils/100 WBC (Bld) 79.5 % 47-70 [facility] Work Phone: Potassium [Moles/Vol] 2.7 mmol/L 3.5-5.1 [facility] Work Phone: Comment on above: Critical Result(s) C alled at: 23:42:52 12/10/2021 by: CRISTAL Roberts COMMUNICATIONS SUPERVISOR. Results read back by same. Protein [Mass/Vol] 7.2 g/dL 6.4-8.2 [facility] Work Phone: Sodium [Moles/Vol] 137 mmol/L 136-145 [facility] Work Phone: WBC (Bld) [#/Vol] 13.7 10*3/uL 4.4-11.0 [facility] Work Phone: Bilirubin Test strip Ql (U)o n 12-10-2021 Bilirubin Ql (U) Negative Negative [facility] Work Phone: Blood erythrocytes count (nu mber/volume)on 12-10-2021 RBC (Bld) [#/Vol] 4.08 10*6/uL 4.2-5.4 [facility] Work Phone: Blood hemoglobin measurement (mass/volume)on 12-10-2021 Hemoglobin (Bld) [Mass/Vol] 12.3 g/dL 12.0-15.0 [facility] Work Phone: Blood lymphocytes/100 leukoc yteson 12-10-2021 Lymphocytes/100 WBC (Bld) 7.3 % 19-41 [facility] Work Phone: Blood manual differential co mment interpretation (narrative result)on 12-10-2021 Manual differential comment Sonny (Bld) [Interp] SCANNED [facility] Work Phone: Comment on above: MONOCYTOSIS NOTED Blood monocytes/100 leukocyt eson 12-10-2021 Monocytes/100 WBC (Bld) 12.5 % 0-10 [facility] Work Phone: Blood platelet mean volumeon 12-10-2021 Platelet mean volume (Bld) [Entitic vol] 9.2 fL 6.2-12.0 [facility] Work Phone: Determination of erythrocyte mean corpuscular volume (MCV)on 12-10-2021 MCV (RBC) [Entitic vol] 89.5 fL 81-99 [facility] Work Phone: Hematocrit Auto (Bld) [Volum e fraction]on 12-10-2021 Hematocrit (Bld) [Volume fraction] 36.5 % 37-47 [facility] Work Phone: Ketones Test strip Ql (U)on 12-10-2021 Ketones Ql (U) 150 mg/dl Negative [facility] Work Phone: Comment on above: CRITICAL VALUE *HCRI TICAL VALUE VERIFIED. CALLED TO Lida ROBERTS RN ER/ 0013 Cristal Nicholas.RESULTS READ BACK BY SAME. Laboratory - Chemistry and C hemistry - challengeon 12-10-2021 ALP [Catalytic activity/Vol] 95 U/L 45-117 [facility] Work Phone: ALT [Catalytic activity/Vol] 48 U/L 13-56 [facility] Work Phone: CK [Catalytic activity/Vol] 5736 U/L 26-192 [facility] Work Phone: CO2 [Moles/Vol] 20.0 mmol/L 21.0-32.0 [facility] Work Phone: Globulin (S) [Mass/Vol] 4.0 g/dL 2.2-4.2 [facility] Work Phone: Magnesium [Mass/Vol] 2.2 mg/dL 1.6-2.6 [facility] Work Phone: Urea nitrogen/Creatinine [Mass ratio] 30.9 mg/mg 10-20 [facility] Work Phone: Laboratory - Hematology and Cell countson 12-10-2021 Erythrocyte distribution width (RBC) [Entitic vol] 45.7 fL 35.1-43.9 [facility] Work Phone: Erythrocyte distribution width (RBC) [Ratio] 13.9 % 11.6-14.6 [facility] Work Phone: Immature granulocytes/100 WBC (Bld) 0.600 % 0.0-0.9 [facility] Work Phone: Comment on above: IG% - Immature Granu locytes (promyelocytes, myelocytes and metamyelocytes) > 1% indicates that a LEFT SHIFT is Present. MCH (RBC) [Entitic mass] 30.1 pg 27.0-32.0 [facility] Work Phone: Nucleated RBC/100 WBC (Bld) [Ratio] 0 % 0-5 [facility] Work Phone: MCHC Auto (RBC) [Mass/Vol]on 12-10-2021 MCHC (RBC) [Mass/Vol] 33.7 g/dL 32-36 [facility] Work Phone: Mucus LM Ql (Urine sed)on Mucus Ql (Urine sed) 0 SEEN /hpf [facility] Work Phone: Nitrite Test strip Ql (U)on 12-10-2021 Nitrite Ql (U) Negative Negative [facility] Work Phone: No Panel Informationon 12-10 Estimated Creatinine Clearance Calc 48.07 ml/min [facility] Work Phone: Estimated GFR (MDRD) Amer 84 mL/min >60 [facility] Work Phone: Comment on above: GFR Calc Estimated GFR (MDRD) Non-Af Amer 69 mL/min >60 [facility] Work Phone: Comment on above: Non- GFR Calc Platelets bldon 12-10-2021 Platelets (Bld) [#/Vol] 283 10*3/uL 150-450 [facility] Work Phone: Protein Test strip Ql (U)on 12-10-2021 Protein Ql (U) 100 mg/dl Negative [facility] Work Phone: Review by pathologiston 11-14 Pathologist review Sonny (Unsp spec) [Interp] October foll [facility] Work Phone: Serum or plasma albumin candice urement (mass/volume)on 12-10-2021 Albumin [Mass/Vol] 3.2 g/dL 3.2-5.0 [facility] Work Phone: Serum or plasma albumin/glob ulin mass ratioon 12-10-2021 Albumin/Globulin [Mass ratio] 0.8 {ratio} 0.9-2.4 [facility] Work Phone: Serum or plasma calcium candice urement (mass/volume)on 12-10-2021 Calcium [Mass/Vol] 8.7 mg/dL 8.5-10.1 [facility] Work Phone: Serum or plasma creatinine m easurement (mass/volume)on 12-10-2021 Creatinine [Mass/Vol] 0.84 mg/dL 0.55-1.02 [facility] Work Phone: Comment on above: The validity of the calculated GFR & GFRAA in patients over 70 years has not been determined. Clinical correlation is essential. Serum or plasma urea nitroge n measurement (mass/volume)on 12-10-2021 Urea nitrogen [Mass/Vol] 26 mg/dL 7-18 [facility] Work Phone: Squamous epithelial cells de tection in urine sediment by light microscopyon 12-10-2021 Epithelial cells.squamous LM Ql (Urine sed) 0 SEEN /hpf 5-10 [facility] Work Phone: Thin prep Papanicolaou smear with manual screeningon 12-10-2021 Thin prep Papanicolaou smear with manual screening 133 U/L 15-37 [facility] Work Phone: Thin prep Papanicolaou smear with manual screening 14 5-15 [facility] Work Phone: Urine blood detectionon - RBC Ql (U) 250 /ul Negative [facility] Work Phone: RBC Ql (U) 0-5 SEEN /hpf 0-5 [facility] Work Phone: Urine clarityon 12-10-2021 Clarity (U) Sl. Cloudy Clear [facility] Work Phone: Urine color determinationon 12-10-2021 Color (U) Yellow Yellow [facility] Work Phone: Urine glucose detectionon Glucose Ql (U) Normal mg/dl Normal [facility] Work Phone: Urine leukocyte esterase det ection by dipstickon 12-10-2021 Leukocyte esterase Test strip Ql (U) 100 /ul Negative [facility] Work Phone: Urine pHon 12-10-2021 pH (U) 6.0 [pH] 5.0 - 8.0 [facility] Work Phone: Urine sediment bacteria coun t by microscopy (number/high power field)on 12-10-2021 Bacteria LM.HPF (Urine sed) [#/Area] 4 /[HPF] None Seen [facility] Work Phone: Urine specific gravity measu rementon 12-10-2021 Specific gravity (U) [Rel density] 1.020 1.002-1.03 0 [facility] Work Phone: Urobilinogen Auto test strip Ql (U)on 12-10-2021 Urobilinogen Ql (U) 1 mg/dl Normal [facility] Work Phone: CT Up Ext w/o Contrast Lefto n 07-03-2020 CT Up Ext w/o Contrast Left Patient Name: SAPNA BULLARD Computed Tomography ACCESSION EXAM DATE/TIME PROCEDURE ORDERING PROVIDER [id number] 07/03/2020 13:[address] Up Ext w/o Contrast 59Aura -DAX SHANKS Left CPT code 10662 Reason For Exam (CT Up Ext w/o [...] Transcribed Date and Time: 07/04/2020 11:26 Normal [facility] Culture, urine Bacteria identified Cx Nom (U) Presumptive E. coli [facility] Work Phone: Bacteria identified Cx Nom (U) Positive [facility] Work Phone: Laboratory - Microbiology an d Antimicrobial susceptibility Bacteria identified Cx Nom (Bld) No growth in 5 days. [facility] Work Phone: Vital Signs Date Time Vital Sign Value Performing Clinician Facility 02-19-2025 08:52-0400 Body temperature 97.6 [degF] Dr. Genevieve Wu MD Work Phone: [facility] 02-19-2025 08:52-0400 Diastolic blood pressure 54 mm[Hg] Dr. Genevieve Wu MD Work Phone: [facility] 02-19-2025 08:52-0400 Heart rate 85 /min Dr. Genevieve Wu MD Work Phone: [facility] 02-19-2025 08:52-0400 Respiratory rate 18 /min Dr. Genevieve Wu MD Work Phone: 1(161)221-656455 [place] [address] 02-19-2025 08:52-0400 SaO2% (BldA) [Mass fraction] 98 % Dr. Genevieve Wu MD Work Phone: [facility] 02-19-2025 08:52-0400 Systolic blood pressure 113 mm[Hg] Dr. Genevieve Wu MD Work Phone: 7(356)901-734955 [place] [address] 02-14-2025 16:26-0400 Body height 165.[address] Genevieve Wu MD Work Phone: 9(444)911-291455 [place] [address] 02-14-2025 16:26-0400 Body weight 55.[address] Genevieve Wu MD Work Phone: [facility] 02-14-2025 15:37-0400 Body mass index (BMI) [Ratio] 20.2 kg/m2 Dr. Genevieve Wu MD Work Phone: 7(584)395-707855 [place] [address] 02-14-2025 15:00-0400 Body temperature 98.9 [degF] Dr. Genevieve Wu MD Work Phone: 3(220)234-149355 [place] [address] 02-14-2025 15:00-0400 Diastolic blood pressure 78 mm[Hg] Dr. Genevieve Wu MD Work Phone: [facility] 02-14-2025 15:00-0400 Heart rate 89 /min Dr. Genevieve Wu MD Work Phone: [facility] 02-14-2025 15:00-0400 Respiratory rate 16 /min Dr. Genevieve Wu MD Work Phone: [facility] 02-14-2025 15:00-0400 SaO2% (BldA) [Mass fraction] 98 % Dr. Genevieve Wu MD Work Phone: [facility] 02-14-2025 15:00-0400 Systolic blood pressure 118 mm[Hg] Dr. Genevieve Wu MD Work Phone: [facility] 02-14-2025 09:36-0400 Body height 165.[address] Genevieve Wu MD Work Phone: [facility] 02-14-2025 09:36-0400 Body mass index (BMI) [Ratio] 21.3 kg/m2 Dr. Genevieve Wu MD Work Phone: [facility] 02-14-2025 09:36-0400 Body weight 58.[address] Genevieve Wu MD Work Phone: [facility] 12-07-2024 05:45-0400 Body mass index (BMI) [Ratio] 19.8 kg/m2 Dr. Genevieve Wu MD Work Phone: [facility] 12-07-2024 05:45-0400 Body temperature 96.4 [degF] Dr. Genevieve Wu MD Work Phone: [facility] 12-07-2024 05:45-0400 Body weight 53.[address] Genevieve Wu MD Work Phone: [facility] 12-07-2024 05:45-0400 Diastolic blood pressure 58 mm[Hg] Dr. Genevieve Wu MD Work Phone: [facility] 12-07-2024 05:45-0400 Heart rate 49 /min Dr. Genevieve Wu MD Work Phone: [facility] 12-07-2024 05:45-0400 Respiratory rate 16 /min Dr. Genevieve Wu MD Work Phone: [facility] 12-07-2024 05:45-0400 SaO2% (BldA) [Mass fraction] 95 % Dr. Genevieve Wu MD Work Phone: [facility] 12-07-2024 05:45-0400 Systolic blood pressure 93 mm[Hg] Dr. Genevieve Wu MD Work Phone: [facility] 11-29-2024 10:09-0400 Body height 165.[address] Genevieve Wu MD Work Phone: [facility] 11-29-2024 10:09-0400 Body mass index (BMI) [Ratio] 19.6 kg/m2 Dr. Genevieve Wu MD Work Phone: [facility] 11-29-2024 10:09-0400 Body temperature 94.6 [degF] Dr. Genevieve Wu MD Work Phone: [facility] 11-29-2024 10:09-0400 Body weight 53.[address] Genevieve Wu MD Work Phone: [facility] 11-29-2024 10:09-0400 Diastolic blood pressure 64 mm[Hg] Dr. Genevieve Wu MD Work Phone: [facility] 11-29-2024 10:09-0400 Heart rate 55 /min Dr. Genevieve Wu MD Work Phone: [facility] 11-29-2024 10:09-0400 Respiratory rate 16 /min Dr. Genevieve Wu MD Work Phone: [facility] 11-29-2024 10:09-0400 SaO2% (BldA) [Mass fraction] 92 % Dr. Genevieve Wu MD Work Phone: [facility] 11-29-2024 10:09-0400 Systolic blood pressure 125 mm[Hg] Dr. Genevieve Wu MD Work Phone: [facility] 10-05-2024 08:22-0400 Body mass index (BMI) [Ratio] 19.6 kg/m2 Dr. Nicci Lemus MD Work Phone: [facility] 10-05-2024 08:22-0400 Body weight 53.[address] Nicci Lemus MD Work Phone: [facility] 10-05-2024 08:22-0400 Diastolic blood pressure 65 mm[Hg] Dr. Nicci Lemus MD Work Phone: [facility] 10-05-2024 08:22-0400 Heart rate 75 /min Dr. Nicci Lemus MD Work Phone: [facility] 10-05-2024 08:22-0400 Respiratory rate 18 /min Dr. Nicci Lemus MD Work Phone: [facility] 10-05-2024 08:22-0400 Systolic blood pressure 111 mm[Hg] Dr. Nicci Lemus MD Work Phone: [facility] 09-08-2024 08:39-0400 Body mass index (BMI) [Ratio] 19.4 kg/m2 Dr. Nicci Lemus MD Work Phone: [facility] 09-08-2024 08:39-0400 Body temperature 97.5 [degF] Dr. Nicci Lemus MD Work Phone: [facility] 09-08-2024 08:39-0400 Body weight 53.[address] Nicci Lemus MD Work Phone: [facility] 09-08-2024 08:39-0400 Diastolic blood pressure 77 mm[Hg] Dr. Nicci Lemus MD Work Phone: [facility] 09-08-2024 08:39-0400 Heart rate 72 /min Dr. Nicci Lemus MD Work Phone: [facility] 09-08-2024 08:39-0400 Respiratory rate 18 /min Dr. Nicci Lemus MD Work Phone: [facility] 09-08-2024 08:39-0400 SaO2% (BldA) [Mass fraction] 99 % Dr. Nicci Lemus MD Work Phone: [facility] 09-08-2024 08:39-0400 Systolic blood pressure 121 mm[Hg] Dr. Nicci Lemus MD Work Phone: [facility] 07-19-2024 09:58-0500 Body height 165.[address] Nicci Lemus MD Work Phone: [facility] 07-19-2024 09:58-0500 Body mass index (BMI) [Ratio] 18.3 kg/m2 Dr. Nicci Lemus MD Work Phone: [facility] 07-19-2024 09:58-0500 Body temperature 98.6 [degF] Dr. Nicci Lemus MD Work Phone: [facility] 07-19-2024 09:58-0500 Body weight 49.[address] Nicci Lemus MD Work Phone: [facility] 07-19-2024 09:58-0500 Diastolic blood pressure 74 mm[Hg] Dr. Nicci Lemus MD Work Phone: [facility] 07-19-2024 09:58-0500 Heart rate 89 /min Dr. Nicci Lemus MD Work Phone: [facility] 07-19-2024 09:58-0500 Respiratory rate 15 /min Dr. Nicci Lemus MD Work Phone: [facility] 07-19-2024 09:58-0500 SaO2% (BldA) [Mass fraction] 96 % Dr. Nicci Lemus MD Work Phone: [facility] 07-19-2024 09:58-0500 Systolic blood pressure 108 mm[Hg] Dr. Nicci Lemus MD Work Phone: [facility] 07-21-2023 08:45-0500 Body temperature 98 [degF] Dr. Nicholas Cohen Work Phone: [facility] 07-21-2023 08:45-0500 Body weight 48.[address] Nicholas Cohen Work Phone: [facility] 07-21-2023 08:45-0500 Diastolic blood pressure 82 mm[Hg] Dr. Nicholas Cohen Work Phone: [facility] 07-21-2023 08:45-0500 Heart rate 70 /min Dr. Nicholas Cohen Work Phone: [facility] 07-21-2023 08:45-0500 Respiratory rate 15 /min Dr. Nicholas Cohen Work Phone: [facility] 07-21-2023 08:45-0500 SaO2% (BldA) [Mass fraction] 98 % Dr. Nicholas Cohen Work Phone: [facility] 07-21-2023 08:45-0500 Systolic blood pressure 120 mm[Hg] Dr. Nicholas Cohen Work Phone: [facility] 05-14-2023 15:37-0500 Body height 156.21 cm Jaida Sanchez RN [facility], [facility].; [facility]. 05-14-2023 15:37-0500 Body mass index (BMI) [Ratio] 19.61 kg/m2 Jaida Sanchez RN [facility], [facility].; [facility] 05-14-2023 15:37-0500 Body surface area Derived from formula 1.45 m2 [facility]. 05-14-2023 15:37-0500 Body weight 47.85 kg Jaida Sanchez RN [facility].; [facility]. 05-14-2023 15:37-0500 Diastolic blood pressure 68 mm[Hg] Jaida Sanchez RN [facility].; [facility]. Comment on above: Patient Position: Sitting; Cuff Location : Left Arm; Cuff Size: Standard 05-14-2023 15:37-0500 Heart rate 53 /min Jaida Sanchez RN [facility].; [facility]. Comment on above: Pattern: Regular 05-14-2023 15:37-0500 Systolic blood pressure 117 mm[Hg] Jaida Sanchez RN [facility].; [facility]. Comment on above: Patient Position: Sitting; Cuff Location : Left Arm; Cuff Size: Standard 04-23-2023 11:48-0500 Body temperature 97.3 [degF] Dr. Lalo Palm Work Phone: [facility] 04-23-2023 11:48-0500 Diastolic blood pressure 68 mm[Hg] Dr. Lalo Palm Work Phone: [facility] 04-23-2023 11:48-0500 Heart rate 69 /min Dr. Lalo Palm Work Phone: [facility] 04-23-2023 11:48-0500 Respiratory rate 16 /min Dr. Lalo Palm Work Phone: [facility] 04-23-2023 11:48-0500 SaO2% (BldA) [Mass fraction] 97 % Dr. Lalo Palm Work Phone: [facility] 04-23-2023 11:48-0500 Systolic blood pressure 124 mm[Hg] Dr. Lalo Palm Work Phone: [facility] 04-23-2023 05:13-0500 Body mass index (BMI) [Ratio] 18.1 kg/m2 Dr. Lalo Palm Work Phone: [facility] 04-23-2023 05:13-0500 Body weight 49.[address] Lalo Palm Work Phone: [facility] 04-20-2023 14:09-0500 Body height [address] Lalo Palm Work Phone: [facility] 04-05-2023 11:42-0400 Body mass index (BMI) [Ratio] 17.8 kg/m2 Dr. Lalo Palm Work Phone: [facility] 04-05-2023 11:42-0400 Body temperature 97.8 [degF] Dr. Lalo Palm Work Phone: [facility] 04-05-2023 11:42-0400 Body weight 47.[address] Lalo Palm Work Phone: [facility] 04-05-2023 11:42-0400 Diastolic blood pressure 64 mm[Hg] Dr. Lalo Palm Work Phone: [facility] 04-05-2023 11:42-0400 Heart rate 50 /min Dr. Lalo Palm Work Phone: [facility] 04-05-2023 11:42-0400 Respiratory rate 14 /min Dr. Lalo Palm Work Phone: [facility] 04-05-2023 11:42-0400 SaO2% (BldA) [Mass fraction] 91 % Dr. Lalo Palm Work Phone: [facility] 04-05-2023 11:42-0400 Systolic blood pressure 106 mm[Hg] Dr. Lalo Palm Work Phone: [facility] 03-17-2023 08:45-0400 Body mass index (BMI) [Ratio] 18.3 kg/m2 Dr. Lalo Palm Work Phone: [facility] 03-17-2023 08:45-0400 Body temperature 98.8 [degF] Dr. Lalo Palm Work Phone: [facility] 03-17-2023 08:45-0400 Body weight 48.[address] Lalo Palm Work Phone: [facility] 03-17-2023 08:45-0400 Diastolic blood pressure 70 mm[Hg] Dr. Lalo Palm Work Phone: [facility] 03-17-2023 08:45-0400 Heart rate 71 /min Dr. Lalo Palm Work Phone: [facility] 03-17-2023 08:45-0400 Respiratory rate 16 /min Dr. Lalo Palm Work Phone: [facility] 03-17-2023 08:45-0400 SaO2% (BldA) [Mass fraction] 95 % Dr. Lalo Palm Work Phone: [facility] 03-17-2023 08:45-0400 Systolic blood pressure 128 mm[Hg] Dr. Lalo Palm Work Phone: [facility] 11-13-2022 10:17-0400 Body height 156.21 cm Sisi Thurman RN [facility], [facility].; [facility], [facility]. 11-13-2022 10:17-0400 Body mass index (BMI) [Ratio] 21.19 kg/m2 Sisi Thurman RN [facility]. 11-13-2022 10:17-0400 Body surface area Derived from formula 1.5 m2 Sisi Thurman RN [facility], [facility].; [facility], [facility]. 11-13-2022 10:17-0400 Body weight 51.71 kg Sisi Thurman RN [facility], [facility].; [facility], [facility]. 11-13-2022 10:17-0400 Diastolic blood pressure 78 mm[Hg] Sisi Thurman RN [facility], [facility].; [facility]. Comment on above: Patient Position: Sitting; Cuff Location : Left Arm; Cuff Size: Standard 11-13-2022 10:17-0400 Heart rate 57 /min Sisi [facility].; [facility] [employer] [facility]. Comment on above: Pattern: Regular 11-13-2022 10:17-0400 Systolic blood pressure 127 mm[Hg] Sisi Thurman RN [facility].; [facility]. Comment on above: Patient Position: Sitting; Cuff Location : Left Arm; Cuff Size: Standard 06-30-2022 09:15-0500 Body height 156.21 cm DUNCAN SAUER4tiitooELIZABETH CHISEL MORTISER OPERATOR-C Work Phone: [facility].; [facility]. 06-30-2022 09:15-0500 Body mass index (BMI) [Ratio] 20.82 kg/m2 DUNCAN [employer] CHISEL MORTISER OPERATOR-C Work Phone: [facility].; [facility]. 06-30-2022 09:15-0500 Body surface area Derived from formula 1.49 m2 [employer] CHISEL MORTISER OPERATOR-C Work Phone: [facility].; [facility]. 06-30-2022 09:15-0500 Body weight 50.8 kg DUNCAN SAUERMediProPharmaER CHISEL MORTISER OPERATOR-C Work Phone: [facility].; [facility]. 06-30-2022 09:15-0500 Diastolic blood pressure 68 mm[Hg] DUNCAN SAUERMediProPharmaER CHISEL MORTISER OPERATOR-C Work Phone: [facility].; [facility]. Comment on above: Patient Position: Sitting; Cuff Location : Left Arm; Cuff Size: Standard 06-30-2022 09:15-0500 Heart rate 59 /min DUNCAN TechstarsER CHISEL MORTISER OPERATOR-C Work Phone: [facility]; [facility]. Comment on above: Pattern: Regular 06-30-2022 09:15-0500 Inhaled oxygen concentration 21 % DUNCAN ZAVALA CHISEL MORTISER OPERATOR-C Work Phone: [facility]; [facility]. Comment on above: Room air 06-30-2022 09:15-0500 SaO2% (BldA) [Mass fraction] 92 % DUNCAN ZAVALA CHISEL MORTISER OPERATOR-C Work Phone: [facility]; [facility]. 06-30-2022 09:15-0500 Systolic blood pressure 114 mm[Hg] DUNCAN ZAVALA CHISEL MORTISER OPERATOR-C Work Phone: [facility]; [facility]. Comment on above: Patient Position: Sitting; Cuff Location : Left Arm; Cuff Size: Standard 04-07-2022 11:05-0400 Body height 156.21 cm [facility].; [facility] [employer] [facility]. 04-07-2022 11:05-0400 Body mass index (BMI) [Ratio] 23.42 kg/m2 [facility] [employer] [facility].; [facility]. 04-07-2022 11:05-0400 Body surface area Derived from formula 1.56 m2 [facility] [facility] [employer] [facility].; [employer] [facility]. 04-07-2022 11:05-0400 Body weight 57.15 kg [facility].; [facility]. 04-07-2022 11:05-0400 Diastolic blood pressure 70 mm[Hg] [facility].; [facility]. Comment on above: Patient Position: Sitting; Cuff Location : Left Arm; Cuff Size: Standard 04-07-2022 11:05-0400 Heart rate 51 /min [facility]. Comment on above: Pattern: Regular 04-07-2022 11:05-0400 Inhaled oxygen concentration 21 % [facility] [employer] [facility]. Comment on above: Room air 04-07-2022 11:05-0400 SaO2% (BldA) [Mass fraction] 98 % [facility]. 04-07-2022 11:05-0400 Systolic blood pressure 159 mm[Hg] [facility].; [facility] [employer] [facility]. Comment on above: Patient Position: Sitting; Cuff Location : Left Arm; Cuff Size: Standard 02-15-2022 15:09-0400 Diastolic blood pressure 68 mm[Hg] Dr. Lalo Palm Work Phone: [facility] Work Phone: 02-15-2022 15:09-0400 Systolic blood pressure 124 mm[Hg] Dr. Lalo Palm Work Phone: [facility] Work Phone: 02-15-2022 14:11-0400 Heart rate 59 /min Dr. Lalo Palm Work Phone: [facility] Work Phone: 02-15-2022 14:11-0400 Respiratory rate 14 /min Dr. Lalo Palm Work Phone: [facility] Work Phone: 02-15-2022 14:11-0400 SaO2% (BldA) [Mass fraction] 96 % Dr. Lalo Palm Work Phone: [facility] Work Phone: 02-15-2022 12:17-0400 Body height 162.[address] Lalo Palm Work Phone: [facility] Work Phone: 02-15-2022 12:17-0400 Body mass index (BMI) [Ratio] 21.9 kg/m2 Dr. Lalo Palm Work Phone: [facility] Work Phone: 02-15-2022 12:17-0400 Body temperature 96.9 [degF] Dr. Lalo Palm Work Phone: [facility] Work Phone: 02-15-2022 12:17-0400 Body weight 58.[address] Lalo Palm Work Phone: [facility] Work Phone: 02-11-2022 10:59-0400 Body mass index (BMI) [Ratio] 23.1 kg/m2 Dr. Lalo Palm Work Phone: [facility] Work Phone: 02-11-2022 10:59-0400 Body temperature 98.2 [degF] Dr. Lalo Palm Work Phone: [facility] Work Phone: 02-11-2022 10:59-0400 Body weight 59.[address] Lalo Palm Work Phone: [facility] Work Phone: 02-11-2022 10:59-0400 Diastolic blood pressure 80 mm[Hg] Dr. Lalo Palm Work Phone: [facility] Work Phone: 02-11-2022 10:59-0400 Heart rate 57 /min Dr. Lalo Palm Work Phone: [facility] Work Phone: 02-11-2022 10:59-0400 Respiratory rate 16 /min Dr. Lalo Palm Work Phone: [facility] Work Phone: 02-11-2022 10:59-0400 SaO2% (BldA) [Mass fraction] 97 % Dr. Lalo Palm Work Phone: [facility] Work Phone: 02-11-2022 10:59-0400 Systolic blood pressure 130 mm[Hg] Dr. Lalo Palm Work Phone: [facility] Work Phone: 12-28-2021 10:24-0400 Body temperature 98 [degF] Dr. Lalo Palm Work Phone: [facility] Work Phone: 12-28-2021 10:24-0400 Diastolic blood pressure 60 mm[Hg] Dr. Lalo Palm Work Phone: [facility] Work Phone: 12-28-2021 10:24-0400 Heart rate 67 /min Dr. Lalo Palm Work Phone: [facility] Work Phone: 12-28-2021 10:24-0400 Respiratory rate 16 /min Dr. Lalo Palm Work Phone: [facility] Work Phone: 12-28-2021 10:24-0400 SaO2% (BldA) [Mass fraction] 95 % Dr. Lalo Palm Work Phone: [facility] Work Phone: 12-28-2021 10:24-0400 Systolic blood pressure 114 mm[Hg] Dr. Lalo Palm Work Phone: [facility] Work Phone: 12-26-2021 20:32-0400 Diastolic blood pressure 69 mm[Hg] Dr. Lalo Palm Work Phone: [facility] Work Phone: 12-26-2021 20:32-0400 Heart rate 79 /min Dr. Lalo Palm Work Phone: [facility] Work Phone: 12-26-2021 20:32-0400 Systolic blood pressure 126 mm[Hg] Dr. Lalo Palm Work Phone: [facility] Work Phone: 12-26-2021 15:59-0400 Body temperature 97.4 [degF] Dr. Lalo Palm Work Phone: [facility] Work Phone: 12-26-2021 15:59-0400 Respiratory rate 18 /min Dr. Lalo Palm Work Phone: [facility] Work Phone: 12-26-2021 15:59-0400 SaO2% (BldA) [Mass fraction] 98 % Dr. Lalo Palm Work Phone: [facility] Work Phone: 12-25-2021 16:45-0400 Body height [address] Lalo Palm Work Phone: [facility] Work Phone: 12-25-2021 16:45-0400 Body weight 58.[address] Lalo Palm Work Phone: [facility] Work Phone: 12-13-2021 16:09-0400 Body mass index (BMI) [Ratio] 23.3 kg/m2 Dr. Lalo Palm Work Phone: [facility] Work Phone: 12-13-2021 15:17-0400 Body temperature 97.9 [degF] Dr. Lalo Palm Work Phone: [facility] Work Phone: 12-13-2021 15:17-0400 Diastolic blood pressure 74 mm[Hg] Dr. Lalo Palm Work Phone: [facility] Work Phone: 12-13-2021 15:17-0400 Heart rate 68 /min Dr. Lalo Palm Work Phone: [facility] Work Phone: 12-13-2021 15:17-0400 Respiratory rate 18 /min Dr. Lalo Palm Work Phone: [facility] Work Phone: 12-13-2021 15:17-0400 SaO2% (BldA) [Mass fraction] 98 % Dr. Lalo Palm Work Phone: [facility] Work Phone: 12-13-2021 15:17-0400 Systolic blood pressure 142 mm[Hg] Dr. Lalo Palm Work Phone: [facility] Work Phone: 12-13-2021 06:00-0400 Body weight 63.[address] Lalo Palm Work Phone: [facility] Work Phone: 12-11-2021 14:03-0400 Body height [address] Lalo Palm Work Phone: [facility] Work Phone: 12-11-2021 01:45-0400 Body mass index (BMI) [Ratio] 16.7 kg/m2 Dr. Lalo Palm Work Phone: [facility] Work Phone: 12-11-2021 01:03-0400 Body temperature 98.6 [degF] Dr. Lalo Palm Work Phone: [facility] Work Phone: 12-11-2021 01:03-0400 Diastolic blood pressure 69 mm[Hg] Dr. Lalo Palm Work Phone: [facility] Work Phone: 12-11-2021 01:03-0400 Heart rate 86 /min Dr. Lalo Palm Work Phone: [facility] Work Phone: 12-11-2021 01:03-0400 Respiratory rate 15 /min Dr. Lalo Palm Work Phone: [facility] Work Phone: 12-11-2021 01:03-0400 SaO2% (BldA) [Mass fraction] 94 % Dr. Lalo Palm Work Phone: [facility] Work Phone: 12-11-2021 01:03-0400 Systolic blood pressure 120 mm[Hg] Dr. Lalo Palm Work Phone: [facility] Work Phone: 12-10-2021 22:22-0400 Inhaled oxygen flow rate 3 L/min Dr. Lalo Palm Work Phone: [facility] Work Phone: 12-10-2021 20:16-0400 Body height 165.[address] Lalo Palm Work Phone: [facility] Work Phone: 12-10-2021 20:16-0400 Body mass index (BMI) [Ratio] 22.3 kg/m2 Dr. Lalo Palm Work Phone: [facility] Work Phone: 12-10-2021 20:16-0400 Body weight 60.[address] Lalo Palm Work Phone: [facility] Work Phone: 09-26-2021 15:46-0400 Body temperature 97.8 [degF] Dr. Lalo Palm Work Phone: [facility] Work Phone: 09-26-2021 15:46-0400 Diastolic blood pressure 80 mm[Hg] Dr. Lalo Palm Work Phone: [facility] Work Phone: 09-26-2021 15:46-0400 Heart rate 91 /min Dr. Lalo Palm Work Phone: [facility] Work Phone: 09-26-2021 15:46-0400 Respiratory rate 16 /min Dr. Lalo Palm Work Phone: [facility] Work Phone: 09-26-2021 15:46-0400 SaO2% (BldA) [Mass fraction] 96 % Dr. Lalo Palm Work Phone: [facility] Work Phone: 09-26-2021 15:46-0400 Systolic blood pressure 128 mm[Hg] Dr. Lalo Palm Work Phone: [facility] Work Phone: Encounters Encounter Date Encounter Type Care Provider Facility Start: 02-27-2025 ambulatory Gerardohumebe Jazmin OLS Fa cility:[facility] Start: 02-21-2025 ambulatory Efhaseeb Wu OLS Fa cility:[facility] Start: 02-18-2025 Dr. Felicia Paniagua MD - [facility] Work Phone: Start: 02-17-2025 Dr. Karon Nunes MD - [facility] Work Phone: Start: 02-16-2025 Dr. Felicia Paniagua MD - [facility] Work Phone: Start: 02-15-2025 Dr. Felicia Paniagua MD - [facility] Work Phone: Start: 02-14-2025 ambulatory Felicia Paniagua [facility] Start: 02-14-2025 End: 02-19-2025 Evaluation and management of inpatient Dr. Genevieve Wu MD Work Phone: -[facility] Surgical 3 Start: 02-14-2025 End: 02-19-2025 Dr. Liudmila Morin MD -[facility] 3 Work Phone: Start: 01-30-2025 ambulatory Genevieve Wu Facili ty:[facility] Start: 01-30-2025 Genevieve Wu MD [facility] Start: 01-20-2025 End: 01-20-2025 [facility] Start: 01-16-2025 ambulatory MARCOS WHITE [facility] Start: 01-02-2025 End: 01-02-[address] Genevieve Wu MD Work Phone: [facility] Start: 01-02-2025 End: 01-02-2025 Departed Referred Genevieve Wu MD [facility] Start: 01-02-2025 Registered Referred Genevieve Wu MD [facility] Start: 01-02-2025 End: 01-02-2025 Genevieve Wu MD [facility] Start: 01-02-2025 End: 01-02-2025 ambulatory Genevieve CUBA Facility:[facility] Start: 12-09-2024 ambulatory Willian Palm Facility:[facility] Start: 12-07-2024 End: 12-07-2024 Patient encounter procedure REGISTERED MASSAGE THERAPIST Idalia Stanley -[facility] Work Phone: Start: 12-07-2024 End: 12-07-2024 TARA Stanley -[facility] Work Phone: Start: 12-07-2024 End: 12-07-[address] Genevieve Wu MD Work Phone: [facility] Work Phone: Start: 11-29-2024 End: 11-29-[address] Vish Cook MD -[facility] Work Phone: Start: 11-29-2024 End: 11-29-2024 Dr. Vish Cook MD -[facility] Work Phone: Start: 11-29-2024 End: 11-29-[address] Genevieve Wu MD Work Phone: [facility] Work Phone: Start: 11-28-2024 End: 11-28-[address] Willian Palm DO -Cat Scan [facility] Work Phone: Start: 11-28-2024 End: 11-28-[address] Genevieve Wu MD Work Phone: [facility] Work Phone: Start: 11-28-2024 End: 11-28-2024 Departed Referred Genevieve Wu MD -[facility] Start: 11-28-2024 Registered Referred Genevieve Wu MD -[facility] Start: 11-28-2024 End: 11-28-2024 Genevieve Wu MD -[facility] Start: 11-28-2024 End: 11-28-2024 ambulatory Willian Palm Facility:[facility] Start: 11-21-2024 End: 11-21-[address] Genevieve Wu MD Work Phone: -[facility] Start: 11-21-2024 End: 11-21-2024 Patient encounter procedure Barbara Castro REGISTERED MASSAGE THERAPIST-C -[facility] Work Phone: Start: 11-21-2024 End: 11-21-2024 Barbara Castro REGISTERED MASSAGE THERAPIST-C -[facility] Work Phone: Start: 11-08-2024 Non-patient / Non-visit Dr. Sharon Crouch MD -[facility] Start: 11-08-2024 End: 11-08-[address] Nicci Lemus MD Work Phone: [facility] Work Phone: Start: 11-08-2024 End: 11-08-[address] Yunior Desai MD -Cardi[facility] Work Phone: Start: 11-08-2024 End: 11-08-2024 Dr. Sharon Crouch MD -[facility] Start: 11-08-2024 End: 11-08-2024 ambulatory Yunior Desai Facility:[facility] Start: 10-31-2024 End: 10-31-2024 Departed Referred Genevieve NguyễnJanes [facility] Start: 10-31-2024 End: 10-31-2024 Genevieve NguyễnJanes [facility] Start: 10-31-2024 End: 10-31-2024 ambulatory Efhaseeb Wu OLS Facility:[facility] Start: 10-27-2024 End: 10-27-[address] Genevieve Wu MD Work Phone: [facility] Start: 10-27-2024 End: 10-27-2024 Patient encounter procedure Barbara Castro NP- [facility] Work Phone: Start: 10-27-2024 End: 10-27-2024 Barbara Castro REGISTERED MASSAGE THERAPIST- [facility] Work Phone: Start: 10-05-2024 End: 10-05-[address] Yunior Desai MD -[facility] Work Phone: Start: 10-05-2024 End: 10-05-2024 ambulatory Yunior Desai Facility:[facility] Start: 10-03-2024 End: 10-03-[address] Nicci Lemus MD Work Phone: [facility] Work Phone: Start: 10-03-2024 End: 10-03-2024 Departed Referred Genevieve NguyễnaJnes [address] [facility] [facility] Start: 10-03-2024 End: 10-03-2024 ambulatory Genevieve CUBA Facility:[facility] Start: 09-08-2024 End: 09-08-[address] Willian Palm DO -[facility] Work Phone: Start: 09-08-2024 End: 09-08-2024 ambulatory Willian Palm Facility:[facility] Start: 08-29-2024 End: 08-29-2024 [facility] Start: 08-29-2024 End: 08-29-2024 ambulatory Genevieve Galavizdrew OLS Facility:[facility] Start: 08-11-2024 End: 08-11-2024 ambulatory MARCOS Saldana [facility] Start: 08-03-2024 End: 08-03-[address] Genevieve Wu MD -Cat Scan [facility] Work Phone: Start: 08-03-2024 End: 08-03-2024 ambulatory Gerardokarleysharon Galavize Facility:[facility] Start: 08-01-2024 ambulatory Gerardokarleysharon Jazmin OLS Fa cility:[facility] Start: 08-01-2024 Registered Referred Genevieve Wu MD -[facility] Start: 07-19-2024 End: 07-19-[address] Vish Cook MD -[facility] Work Phone: Start: 07-19-2024 End: 07-19-2024 ambulatory Nicci [facility] Facility:[facility] Start: 07-12-2024 End: 07-12-2024 ambulatory Genevieve Wu Facility:[facility] Start: 07-12-2024 End: 07-12-[address] Genevieve Wu MD -[facility] Work Phone: Start: 07-04-2024 End: 07-04-2024 ambulatory Barbara Castro REGISTERED MASSAGE THERAPIST Facility:[facility] Start: 07-04-2024 End: 07-04-2024 Patient encounter procedure Barbara Castro REGISTERED MASSAGE THERAPIST-C -[facility] Work Phone: Start: 06-30-2024 ambulatory [facility] Facility:[facility] Start: 06-30-2024 Registered Referred Genevieve Wu MD -[facility] Start: 06-27-2024 End: 06-27-2024 ambulatory Barbara Castro REGISTERED MASSAGE THERAPIST Facility:[facility] Start: 06-23-2024 ambulatory [facility] Facility:[facility] Start: 06-21-2024 End: 06-21-2024 ambulatory Genevieve Wu Facility:[facility] Start: 06-20-2024 End: 06-20-2024 ambulatory Matthew REGISTERED MASSAGE THERAPIST [facility] Start: 06-17-2024 ambulatory Nicci Lemus Facility:[facility] Start: 06-16-2024 End: 06-16-2024 ambulatory Matthew REGISTERED MASSAGE THERAPIST Facility:[facility] Start: 06-11-2024 End: 06-11-2024 ambulatory Hilaria [facility] Start: 06-07-2024 End: 06-14-2024 ambulatory [facility] Facility:[facility] Start: 05-30-2024 End: 05-30-2024 Emergency department patient visit Nicci Lemus Facility:[facility] Start: 02-23-2024 End: 02-23-2024 Historical Summary DUNCAN ZAVALA CHISEL MORTISER OPERATOR-C Work Phone: [facility] Start: 02-05-2024 End: 02-05-2024 ambulatory MARCOS WHITE [facility] Start: 08-17-2023 End: 08-17-[address] Nicholas Cohen Work Phone: [facility] Work Phone: Start: 08-17-2023 End: 08-17-[address] Nicholas Cohen Work Phone: [facility] Work Phone: Start: 08-14-2023 End: 08-14-[address] Nicholas Cohen Work Phone: [facility] Work Phone: Start: 08-14-2023 End: 08-14-[address] Nicholas Cohen Work Phone: [facility] Work Phone: Start: 08-10-2023 End: 08-10-[address] Nicholas Cohen Work Phone: [facility]-Physical Therapy Work Phone: Start: 07-21-2023 End: 07-21-[address] Nicholas Cohen Work Phone: [facility] Work Phone: Start: 05-25-2023 End: 05-25-[address] Lalo Palm Work Phone: [facility] Work Phone: Start: 05-25-2023 End: 05-25-[address] Lalo Palm Work Phone: [facility] [place] Work Phone: Start: 05-25-[address] Kamari Palm Work Phone: [facility]-Physical Therapy Work Phone: Start: 05-14-2023 End: 05-14-2023 Office outpatient visit 15 minutes DUNCAN ZAVALA CHISEL MORTISER OPERATOR-C Work Phone: [facility] Start: 04-23-2023 Non-patient / Non-visit Dr. Lalo Palm Work Phone: [facility] Work Phone: Start: 04-22-2023 Non-patient / Non-visit Dr. Lalo Palm Work Phone: [facility] Work Phone: Start: 04-21-2023 Non-patient / Non-visit Dr. Lalo Palm Work Phone: [facility] Work Phone: Start: 04-20-2023 Non-patient / Non-visit Dr. Lalo Palm Work Phone: [facility] Work Phone: Start: 04-19-2023 Non-patient / Non-visit Dr. Lalo Palm Work Phone: [facility] Work Phone: Start: 04-18-2023 Non-patient / Non-visit Dr. Lalo Palm Work Phone: [facility] Work Phone: Start: 04-17-2023 Non-patient / Non-visit Dr. Lalo Palm Work Phone: [facility] Work Phone: Start: 04-16-2023 End: 04-23-2023 Evaluation and management of inpatient Dr. Lalo Palm Work Phone: [facility]-Medical Surgical 3 Work Phone: Start: 04-05-2023 End: 04-05-[address] Lalo Palm Work Phone: [facility]-Laboratory, Specimen Work Phone: Start: 04-05-2023 End: 04-05-[address] Lalo Palm Work Phone: [facility] Work Phone: Start: 03-17-2023 End: 03-17-[address] Lalo Palm Work Phone: [facility] Work Phone: Start: 11-17-2022 End: 11-17-2022 Results Review DUNCAN VALDEZP-C Work Phone: [facility] Start: 11-13-2022 End: 11-18-[address] NICCI LEMUS MD Facility:A Start: 11-13-2022 End: 11-13-2022 Patient encounter procedure DUNCAN VALDEZP-C Work Phone: [facility] Start: 11-13-2022 End: 11-13-2022 Office outpatient visit 15 minutes DUNCAN HOFSTETTER CHISEL MORTISER OPERATOR-C [facility] Start: 08-04-2022 End: 08-04-2022 Historical Summary DUNCAN ZAVALA CHISEL MORTISER OPERATOR-C Work Phone: [facility] Start: 07-04-2022 End: 07-04-2022 Patient encounter procedure DUNCAN ZAVALA CHISEL MORTISER OPERATOR-C [facility] Start: 07-01-2022 End: 07-01-2022 Results Review DUNCAN ZAVALA CHISEL MORTISER OPERATOR-C Work Phone: [facility] [employer] Start: 06-30-2022 End: 06-30-2022 Lab Only DUNCAN BERNSTEINER CHISEL MORTISER OPERATOR-C [facility] Start: 06-30-2022 End: 06-30-2022 Office outpatient visit 25 minutes DUNCAN ZAVALA CHISEL MORTISER OPERATOR-C Work Phone: [facility] [employer] Start: 04-24-2022 End: 04-24-2022 Phone Encounter DUNCAN ZAVALA CHISEL MORTISER OPERATOR-C Work Phone: [facility] [employer] Start: 04-23-2022 End: 04-23-2022 Medication Refill/Order DUNCAN BERNSTEINER CHISEL MORTISER OPERATOR-C [facility] Start: 04-07-2022 End: 04-07-2022 Office outpatient new 60 minutes DUNCAN ZAVALA CHISEL MORTISER OPERATOR-C Work Phone: [facility] [employer] Start: 02-15-2022 End: 02-15-2022 Emergency department patient visit Dr. Lalo Palm Work Phone: [facility]-Emergency Department Start: 02-11-2022 End: 02-11-[address] Lalo Palm Work Phone: [facility] Work Phone: Start: 02-11-2022 End: 02-11-[address] Lalo Palm Work Phone: [facility] Start: 02-11-2022 End: 02-11-[address] Lalo Palm Work Phone: [facility] Start: 12-24-2021 End: 12-24-[address] Lalo Palm Work Phone: [facility] Start: 12-13-2021 End: 12-28-2021 Evaluation and management of inpatient Dr. Lalo Palm Work Phone: [facility]-Transitional Care Unit Start: 12-13-2021 Non-patient / Non-visit Dr. Lalo Palm Work Phone: [facility] Start: 12-12-2021 Non-patient / Non-visit Dr. Lalo Palm Work Phone: [facility] Start: 12-11-2021 End: 12-13-2021 Evaluation and management of inpatient Dr. Lalo Palm Work Phone: [facility]-Medical Surgical 3 Start: 10-29-2021 Non-patient / Non-visit Dr. Lalo Palm Work Phone: [facility] Start: 09-26-2021 End: 09-26-[address] Lalo Palm Work Phone: [facility] Start: 07-03-2020 End: 07-03-2020 Subsequent hospital visit by physician Gerson Adamson Work Phone: [facility] Comment on above: Other closed displac ed [...] corpuscular hem oglobin concentration determination Dr. Genevieve uW MD Work Phone: Start: 01-30-2025 Nucleated red [...] Activity Detail Author Start: 02-19-2025 Patient discharge [facility] Start: 02-14-2025 Following clinical pathway protocol [facility] Start: 02-14-2025 Assessment of risk o f venous thromboembolism [facility] Start: 02-14-2025 Elevation of head of bed [facility] Start: 02-14-2025 Inhalation therapy procedure [facility] Start: 02-14-2025 Insertion of cathete r into peripheral vein [facility] Start: 02-14-2025 Patient education [facility] Start: 02-14-2025 Providing care accor ding to [facility] Start: 02-14-2025 Provision of activit y privileges [facility] Start: 02-14-2025 Referral to occupati onal therapist [facility] Start: 02-14-2025 Referral to service [facility] Start: 02-14-2025 [facility] Start: 02-14-2025 Bacteria identified in Sputum by Culture [facility] Start: 02-14-2025 Legionella pneumophi la Ag [Presence] in Urine [facility] Start: 02-14-2025 Streptococcus pneumo niae antigen assay [facility] Start: 02-14-2025 Verification routine [facility] Start: 02-14-2025 Admission procedure [facility] Start: 02-14-2025 Hospital admission, emergency, from emergency room, medical nature [facility] Start: 02-14-2025 [facility] Start: 02-14-2025 Consultation [facility] Start: 02-14-2025 Patient referral to dietitian [facility] Start: 04-23-2023 Patient discharge [facility] Start: 04-18-2023 [facility] Start: 04-16-2023 Application of intermittent pneumatic compression device [facility] Start: 04-16-2023 Aspiration precautions [facility] Start: 04-16-2023 Assessment of risk o f venous thromboembolism [facility] Start: 04-16-2023 Fall prevention [facility] Start: 04-16-2023 Inhalation therapy procedure [facility] Start: 04-16-2023 Insertion of cathete r into peripheral vein [facility] Start: 04-16-2023 Introduction of urin inga catheter [facility] Start: 04-16-2023 Measuring intake and output [facility] Start: 04-16-2023 Providing care accor ding to [facility] Start: 04-16-2023 Provision of activit y privileges [facility] Start: 04-16-2023 Referral to occupati onal therapist [facility] Start: 04-16-2023 Referral to service [facility] Start: 04-16-2023 [facility] Start: 04-16-2023 Following clinical pathway protocol [facility] Start: 04-16-2023 Admission procedure [facility] Start: 04-16-2023 Patient referral to dietitian [facility] Start: 11-13-2022 Blood occult peroxid ase actv qual feces 1 deter [facility] Start: 11-13-2022 Blood count complete auto&auto difrntl [facility], [employer]. Start: 06-30-2022 Cv strs tst xers&/or rx cont ecg w/si&r CARDIOVASCULAR STRESS OSHP-GDRCSMLYENMPPQA-WOR ISCAN- WITH IMAGING - (87450) ([id number]) Start: 30-Jun-2022 [facility] Start: 06-30-2022 Ecg routine ecg w/le ast 12 lds w/i&r ELECTROCARDIOGRAM, COMPLETE (25186) Start: 30-Jun-2022 [facility] Start: 04-28-2022 Assay of iron [facility]; [facility] Start: 04-28-2022 Blood count complete auto&auto difrntl [facility] Start: 04-28-2022 Comprehensive metabo lic panel [facility] [facility] Start: 04-07-2022 Adv care pln tlkd & alt dcsn maker docd ADV CARE PLAN DISCUSSED & DOCUMENTED, SURROGATE OR PLAN IN PLACE (2540T) Start: 07-Apr-2022 [facility]; [facility] Start: 02-11-2022 Thiamine measurement [facility] Work Phone: Start: 02-01-2022 Blood chemistry [facility] Work Phone: Start: 01-25-2022 Blood chemistry [facility] Work Phone: Start: 01-18-2022 Blood chemistry [facility] Work Phone: Start: 01-11-2022 Blood chemistry [facility] Work Phone: Start: 01-04-2022 Blood chemistry [facility] Work Phone: Start: 12-29-2021 Development of care plan [facility] Work Phone: Start: 12-28-2021 Blood chemistry [facility] Work Phone: Start: 12-28-2021 Patient discharge [facility] Work Phone: Start: 12-27-2021 Referral to service [facility] Work Phone: Start: 12-24-2021 [facility] Work Phone: Start: 12-23-2021 End: 12-24-2021 [facility] Work Phone: Start: 12-21-2021 Development of care plan [facility] Work Phone: Start: 12-20-2021 End: 12-20-2021 [facility] Work Phone: Start: 12-19-2021 [facility] Work Phone: Start: 12-18-2021 Blood chemistry [facility] Work Phone: Start: 12-17-2021 Speech therapy management [facility] Work Phone: Start: 12-17-2021 Blood chemistry [facility] Work Phone: Start: 12-17-2021 [facility] Work Phone: Start: 12-16-2021 Speech therapy assessment [facility] Work Phone: Start: 12-16-2021 Blood chemistry [facility] Work Phone: Start: 12-16-2021 [facility] Work Phone: Start: 12-15-2021 Blood chemistry [facility] Work Phone: Start: 12-14-2021 Development of care plan [facility] Work Phone: Start: 12-14-2021 Patient referral to dietitian [facility] Work Phone: Start: 12-14-2021 Developing a treatme nt plan [facility] Work Phone: Start: 12-14-2021 Blood chemistry [facility] Work Phone: Start: 12-13-2021 Verification routine [facility] Work Phone: Start: 12-13-2021 Following clinical pathway protocol [facility] Work Phone: Start: 12-13-2021 Admission procedure [facility] Work Phone: Start: 12-13-2021 Measuring intake and output [facility] Work Phone: Start: 12-13-2021 Patient referral to dietitian [facility] Work Phone: Start: 12-13-2021 Referral to occupati onal therapist [facility] Work Phone: Start: 12-13-2021 Referral to service [facility] Work Phone: Start: 12-13-2021 Vital signs measurements [facility] Work Phone: Start: 12-13-2021 End: 12-14-2021 [facility] Work Phone: Start: 12-13-2021 Patient discharge [facility] Work Phone: Start: 12-11-2021 End: 12-12-2021 [facility] Work Phone: Start: 12-11-2021 End: 12-11-2021 Blood culture [facility] Work Phone: Start: 12-11-2021 Application of intermittent pneumatic compression device [facility] Work Phone: Start: 12-11-2021 Following clinical pathway protocol [facility] Work Phone: Start: 12-11-2021 Aspiration precautions [facility] Work Phone: Start: 12-11-2021 Assessment of risk o f venous thromboembolism [facility] Work Phone: Start: 12-11-2021 Fall prevention [facility] Work Phone: Start: 12-11-2021 Incentive spirometry [facility] Work Phone: Start: 12-11-2021 Inhalation therapy procedure [facility] Work Phone: Start: 12-11-2021 Insertion of cathete r into peripheral vein [facility] Work Phone: Start: 12-11-2021 Introduction of urin inga catheter [facility] Work Phone: Start: 12-11-2021 Measuring intake and output [facility] Work Phone: Start: 12-11-2021 Oxygen therapy [facility] Work Phone: Start: 12-11-2021 Providing care accor ding to standard [facility] Work Phone: Start: 12-11-2021 Provision of activit y privileges [facility] Work Phone: Start: 12-11-2021 Referral to occupati onal therapist [facility] Work Phone: Start: 12-11-2021 Referral to service [facility] Work Phone: Start: 12-11-2021 End: 12-11-2021 [facility] Work Phone: Start: 12-11-2021 Verification routine [facility] Work Phone: Start: 12-11-2021 Admission procedure [facility] Work Phone: Start: 12-11-2021 Patient referral to dietitian [facility] Work Phone: Start: 12-10-2021 [facility] Work Phone: Start: 10-29-2021 Patient referral [facility] Work Phone: Start: 06-27-2020 Annual Wellness Visi t (AWV) Annual Wellness Visit (AWV) [place] Start: 02-14-2020 Influenza vaccination Flu vaccine (# 1) [place] Start: 01-18-1996 Screening for osteoporosis DEXA (modify frequency per FRAX score) [place] Start: 1991 Shingles Vaccine (1 of 2) Buitrago gles Vaccine (1 of 2) [place] Start: 01-18-1960 DTaP/Tdap/Td vaccine (1 - Tdap) DTaP/Tdap/Td vaccine (1 - Tdap) [place] Start: 1941 Hepatitis C screening Hepatitis C [place], [place] Bacteria identified in Blood by Culture Blood Culture [facility] Work Phone: Blood culture [facility] Work Phone: CT Chest WO contrast [facility] End: 07-03-2020 CT ELBOW LEFT WO CONTRAST [place] Comment on above: 1 Occurrences starti ng 07/03/2020 until 07/03/2020 End: 07-03-2020 CT UPPER EXTREMITY LEFT WO CONTRAST CT UPPER EXTREMITY LEFT WO CONTRAST Imaging Routine Once for 1 Occurrences starting 07/03/2020 until 07/03/2020 [place] Comment on above: Once for 1 Occurrenc es starting 07/03/2020 until 07/03/2020 CT UPPER EXTREMITY L EFT WO CONTRAST CT UPPER EXTREMITY LEFT WO CONTRAST Imaging Routine 07/03/2020 12:46 PM EST [place] MR Brain WO contrast [facility] Work Phone: Patient Education [facility] Work Phone: Patient referral [facility] Work Phone: Thiamine measurement [facility] Work Phone: [facility] Immunizations Immunization Date Immunization Notes Care Provider Jo-Ann grimaldomelanie 05-14-2023 influenza, injectabl e, quadrivalent, preservative free DUNCAN ZAVALA CHISEL MORTISER OPERATOR-C Work Phone: [facility]; [facility] [employer] [facility] Comment on above: Site: Right Tessie He iven: * Influenza (Flu) Vaccine (Inactivated or Recombinant) (01/18/21) 05-14-2023 influenza virus vacc ine, unspecified formulation DUNCAN ZAVALA CHISEL MORTISER OPERATOR-C Work Phone: [facility]; [employer] [facility] Comment on above: Had immunization. 01-02-2021 Covid (Pfizer) Dr. Lalo marquis Work Phone: [facility] 12-12-2020 Covid (Pfizer) Dr. Lalo marquis Work Phone: [facility] 06-18-[address] Lalo Palm Work Phone: [facility] 01-07-2018 pneumococcal polysaccharide vaccine, [address] Lalo Palm Work Phone: [facility] 01-07-[address] Bhavin Palm Work Phone: [facility] Work Phone: 01-07-2018 pneumococcal vaccine , unspecified formulation Dr. Lalo Palm Work Phone: [facility] 06-04-2001 TD(adult) unspecifie d formulation Dr. Lalo Palm Work Phone: [facility] Payers Date Payer Category Payer Self-pay [id number] 2020 Medicare AETNA MEDICARE A ETNA MEDICARE-ADVANTAGE PPO [id number] 2020-Present [address] [place] [address] Medicare [id number] 2006 Private Health Insurance 101 [id number] 1940 Unknown [id number] 2.16.840.1.958968.3.579.2.6 27 1941 Unknown [id number] 2.16.840.1.086671.3.579.2.6 51 1941 Unknown [id number] 2.16.840.1.847906.3.579.2.6 51 1941 Unknown [id number] 2.16.840.1.319617.3.579.2.6 51 1941 Unknown [id number] 2.16.840.1.914939.3.579.2.6 51 Medicare [id number] Unknown [facility] PACKAGE PLAN [id number] Unknown [id number] 2.16.840.1.209042.3.579.2.4 62 Unknown [id number] 2.16.840.1.163551.3.579.2.4 62 Unknown [id number] 2.16.840.1.505694.3.579.2.4 62 Unknown [id number] 2.16.840.1.492706.3.579.2.4 62 Unknown [id number] 2.16.840.1.746323.3.579.2.4 62 Unknown [id number] 2.16.840.1.434656.3.579.2.4 62 Unknown [id number] 2.16.840.1.357422.3.579.2.4 62 Unknown [id number] 2.16.840.1.962139.3.579.2.4 62 Unknown [id number] 2.16.840.1.382342.3.579.2.4 62 Unknown [id number] 2.16.840.1.223248.3.579.2.4 62 Unknown [id number] 2.16.840.1.091298.3.579.2.4 62 Unknown [id number] 2.16.840.1.887316.3.579.2.4 62 Unknown [id number] 2.16.840.1.204729.3.579.2.4 62 Unknown [id number] 2.16.840.1.792582.3.579.2.4 62 Unknown [id number] 2.16.840.1.177675.3.579.2.4 62 Unknown [id number] 2.16.840.1.332486.3.579.2.4 62 Unknown [id number] 2.16.840.1.807908.3.579.2.4 62 Unknown [id number] 2.16.840.1.819434.3.579.2.4 62 Unknown [id number] 2.16.840.1.920364.3.579.2.4 62 Unknown [id number] 2.16.840.1.664680.3.579.2.4 62 Unknown [id number] 2.16.840.1.985938.3.579.2.4 62 Unknown [id number] 2.16.840.1.967938.3.579.2.4 62 Unknown [id number] 2.16.840.1.547127.3.579.2.4 62 Unknown [id number] 2.16.840.1.189766.3.579.2.4 62 Unknown [id number] 2.16.840.1.165494.3.579.2.4 62 Unknown [id number] 2.16.840.1.815039.3.579.2.4 62 Unknown [id number] 2.16.840.1.809622.3.579.2.4 62 Unknown [id number] 2.16.840.1.199409.3.579.2.4 62 Unknown [id number] 2.16.840.1.521256.3.579.2.4 62 Unknown [id number] 2.16.840.1.518640.3.579.2.4 62 Unknown [id number] 2.16.840.1.227208.3.579.2.4 62 Unknown [id number] 2.16.840.1.648351.3.579.2.4 62 Unknown [id number] 2.16.840.1.093622.3.579.2.4 62 Unknown [id number] 2.16.840.1.586737.3.579.2.4 62 Unknown [id number] 2.16.840.1.142452.3.579.2.4 62 Unknown [id number] 2.16.840.1.750600.3.579.2.4 62 Unknown [id number] 2.16.840.1.374438.3.579.2.4 62 Unknown [id number] 2.16.840.1.462546.3.579.2.4 62 Unknown [id number] 2.16.840.1.005690.3.579.2.4 62 Unknown [id number] 2.16.840.1.379928.3.579.2.4 62 Unknown [id number] 2.16.840.1.298031.3.579.2.4 62 Unknown [id number] 2.16.840.1.140554.3.579.2.4 62 Unknown [id number] 2.16.840.1.100273.3.579.2.4 62 Unknown [id number] 2.16.840.1.333320.3.579.2.4 62 Unknown [id number] 2.16.840.1.154233.3.579.2.4 62 Unknown [id number] 2.16.840.1.382200.3.579.2.4 62 Social History Date Type Detail Facility Start: 07-03-2020 End: 04-16-2023 Tobacco smoking status NHIS Unknown if ever smoked [facility] Sex Assigned At Not on file [place] Exposure to SARS-CoV -2 (event) Not sure [place] Start: 1940 Sex Assigned At Female [facility] Start: 01-04-2018 None [facility] Start: 01-04-2018 Alone [facility] Start: 01-15-2018 Non-smoker [facility] Alcohol Use: Alcohol Use: ; N o Alcohol Use. [facility]; [facility] Marital status: Marital status: ; . [facility]; [facility] Tobacco use: Tobacco use: ; F ormer smoker. [facility]; [facility]; [facility] Work Phone: Occasional alcohol use [facility]; [facility] Work Phone: Never smoked tobacco [facility]; [facility] Work Phone: Start: 06-07-2024 End: 02-14-2025 Ex-smoker [facility] Medical Equipment Procedure Code Equipment Code [...] Assessment Result Facility 02-19-2025 Functional status Chair [facility] Work Phone: 04-23-2023 Functional status Bathroom Privilege [facility] Work Phone: 12-28-2021 Functional status Ambulates;Up ad gary [facility] Work Phone: 12-26-2021 Functional status Ambulates [facility] Work Phone: 12-13-2021 Functional status Patient Activity Chair [facility] Work Phone: 12-13-2021 Functional status With Assist of 1 [facility] Work Phone: Mental Status Date Assessment Result Facility 02-19-2025 Cognitive function Touch/Shaking [facility] Work Phone: 02-14-2025 Cognitive function Drowsy;Disori ented;Responds to vocal stimuli [facility] Work Phone: 04-23-2023 Cognitive function Appropriate;Cooperativ e [facility] Work Phone: 04-22-2023 Cognitive function Arousable To Voice/Nam e [facility] Work Phone: 02-15-2022 Cognitive function Level Of Cons ciousness Awake;Alert;Appropriate;Follow s Commands [facility] Work Phone: 12-28-2021 Cognitive function Voice/Name [facility] Work Phone: 12-27-2021 Cognitive function Appropriate;C ooperative;Restle ss;Guarded [facility] Work Phone: 12-26-2021 Cognitive function Voice/Name [facility] Work Phone: 12-24-2021 Cognitive function Calm;Relaxed [facility] Work Phone: 12-13-2021 Cognitive function Patient Orientation Pe rson [facility] Work Phone: 12-13-2021 Cognitive function Voice/Name [facility] Work Phone: 12-12-2021 Cognitive function Fatigued [facility] Work Phone: Clinical Notes 02-15-2022 to 02-19-2025 Note Date & Type Note Facility 02-19-2025 Note [facility] 02-18-2025 Progress note Note Date/Time February 18, 2025 3:08pm [facility] Medical Records Department [address] [place] [id number] Progress Note 02/18/25 1500 MR#: [id number] Acct: [id number] Name: SAPNA BULLARD Rep #:[id number] : 1940 85 From: Felicia Paniagua MD PCP: Dr. Genevieve Wu MD Status:A DM IN Location: MS3 [id number] Subjective Subjective Patient seen and examined with [...] % (Auto) 61.7, Lymph % (Auto) 21.0, [place] % (Auto) 13.3 H, Eos % (Auto) [...] (Auto) 71.4 H, Lymph % (Auto) 14.7L, [place] % (Auto) 10.8 H, Eos % (Auto) [...] sitter again. Charges/Coding Visit Charges Inpatient E&M: 23294 Subs Hosp L2 02/18/25 1508 <Electronically signed by Felicia Paniagua MD> Felicia Paniagua MD Cosigner Signature (if applicable): CC: ~ Signed [facility] Work Phone: 1(529) 127-300209-05-2025 Progress note Author [facility] Note Date/Time February 17, 2025 4:00pm [facility] Medical Records Department [address] [place] [address] Progress Note 02/17/25 1048 MR#: [id number] Acct: [id number] Name: SAPNA BULLARD Drew Rep #:[id number] : 1940 85 From: Felicia Paniagua MD PCP: Dr. Genevieve Wu MD Status:A DM IN Location: MS3 [id number] Subjective Subjective Patient seen and examined with [...] facilitate this. Charges/Coding Visit Charges Inpatient E&M: 87062 Subs Hosp L2 02/17/25 1600 <Electronically signed by Felicia Paniagua MD> Felicia Paniagua MD Cosigner Signature (if applicable): CC: ~ Signed [facility] Work Phone: 1(909) 682-250209-05-2025 Progress note Author [facility] Note Date/Time February 17, 2025 6:39am [facility] Medical Records Department [address] [place] [address] Progress Note - Hospitalist 02/17/25 0303 MR#: [id number] Acct: [id number] Name: SAPNA BULLARD Rep #:[id number] : 1940 85 From: Karon Nunes MD PCP: Dr. Genevieve Wu MD Status:A DM IN Location: [place] [address] Hospitalist Note Patient with notable agitation, aggressive behavior, will trial IM haldol x 1. 02/17/25 0304 <Electronically signed by Karon Nunes MD> Cosigner Signature (if applicable): CC: ~ Signed ADDENDUM by Dr. Karon Nunes MD on 02/17/25 at 0639 Addendum Will increase patient risperidone. 02/17/25 0639<Electronically signed by Karon Nunes MD> Cosigner Signature (if applicable): cc: ~* Signed [facility] Work Phone: 1(503) 947-376209-04-2025 Progress note Author Felicia [facility] Note Date/Time February 16, 2025 5:29pm [facility] Medical Records Department [address] [place] [address] Progress Note 02/16/25 1324 MR#: [id number] Acct: [id number] Name: SAPNA BULLARD Rep #:[id number] : 1940 85 From: Felicia Paniagua MD PCP: Dr. Genevieve Wu MD Status:A DM IN Location: MS3 [id number] Subjective Subjective Patient seen and examined with [...] (Auto) 67.8, Lymph % (Auto) 14.9 L, [place] % (Auto) 14.1 H, Eos % (Auto) [...] DC tomorrow Charges/Coding Visit Charges Inpatient E&M: 67005 Subs Hosp L2 02/16/25 1406 <Electronically signed by Felicia Paniagua MD> Felicia Paniagua MD Cosigner Signature (if applicable): CC: ~ Signed [facility] Work Phone: 1(832) 591-998109-03-2025 Progress note Author Felicia Paniagua [facility] [facility] Note Date/Time February 15, 2025 6:32pm [facility] Medical Records Department [address] [place] [address] Progress Note 02/15/25 1730 MR#: [id number] Acct: [id number] Name: SAPNA BULLARD Rep #:[id number] : 1940 85 From: Felicia Paniagua MD PCP: Dr. Genevieve Wu MD Status:A DM IN Location: MS3 GM437-6 Subjective Subjective Patient seen and examined. She was lethargic and not really answering questions. Unable to do review of the systems. I saw her with her nurse by [facility]. Review of symptoms otherwise negative. She has [...] (Auto) 63.9, Lymph % (Auto) 16.8 L, Plumas % (Auto) 16.6 H, Eos % (Auto) [...] prophylaxis: SCDs Charges/Coding Visit Charges Inpatient E&M: 60259 Subs Hosp L2 02/15/25 1832 <Electronically signed by Felicia Paniagua MD> Felicia Paniagua MD Cosigner Signature (if applicable): CC: ~ Signed [facility] Work Phone: 1(686) 953-124009-03-2025 Progress note Author Farrah Leone [facility] Note Date/Time February 14, 2025 10:08pm [facility] Medical Records Department [address] [place] [address] Progress Note 02/14/252200 MR#: [id number] Acct: [id number] Name: SAPNA BULLARD Rep #:[id number] : 1940 85 From: Farrah Haas PCP: Dr. Genevieve Wu MD Status:A DM IN Location: MS3 [id number] Progress Note Notified by nursing that pt [...] 2mg IM x1. 02/14/252207 <Electronically signed by Fararh DELUNA> Farrah DELUNA Cosigner Signature (if applicable): CC: ~ Signed [facility] Work Phone: 1(979) 713-570509-02-2025 History and physical note Author Liudmila Morin [facility] Note Date/Time February 14, 2025 7:35pm [facility] Medical Records Department [address] [place] [address] H&P Exam - Hospitalist 02/14/25 1511 MR#: [id number] Acct: [id number] Name: SAPNA BULLARD Rep #:[id number] : 1940 85 From: Liudmila Morin MD PCP: Dr. Genevieve Wu MD Status:A DM IN Location: MS3 QV179-5 HPI - General General Date of Admission: 02/14/25 Date of Service: 02/14/25 Chief Complaint: Altered mental status, weakness HPI Narrative SAPNA BULLARD, is a 85-year-old female history of GERD, dementia, essential tremor,restless leg syndrome who presented to [facility] ED 02/14/2025 from [facility] for confusion, weakness, stool and urinary incontinence. [...] up. Unable to obtain any further history [facility] Medical History (Updated 02/14/25 @ 15:21 by [...] Unknown History gram-2.25 kcal/mL oral liquid (Boost [facility]) propranolol 20 mg tablet 20 [...] details: PT frequency: 1-2 times per week herrera/sikh: Jainism seatbelt use: always ROS ROS Narrative Unable [...] (Auto) 74.1 H, Lymph % (Auto)11.8 L, Plumas % (Auto) 12.2 H, Eos % (Auto) [...] Clarity Clear, Urine pH 6.0, Ur Specific Burdett 1.015, Urine Protein Negative, Urine Glucose (UA) [...] pneumonia. 2. Suggestion of COPD. Reading Location: [facility] Assessment & Plan Assessment/Plan (1) Community acquired [...] Morin MD Charges/Coding Visit Charges Inpatient E&M: 22198 Init Hosp L2 02/14/25 1522 <Electronically signed [...] MD; Dr. Liudmila Morin MD ~* Signed [facility] Work Phone: 1(712) 618-261409-02-2025 Discharge summary Author Arya Gannon [facility] Note Date/Time February 14, 2025 5:46pm [facility] Medical Records Department [address] [place] [address] Emergency Department Summary 02/14/25 MR#: [id number] Acct: [id number] Name: SAPNA BULLARD Drew Rep #:[id number] : 1940 85 From: Arya de guzman DO PCP: Dr. Genevieve Wu MD Status:A DM IN Location: MS3 AW067-1 HPI History of Present Illness Chief Complaint: [...] Alert, grossly intact, sensation intact Psych: Cooperative [facility] Medical History Neuropathy Left bundle branch block [...] details: PT frequency: 1-2 times per week herrera/sikh: Jainism seatbelt use: always EXAM Physical Exam Const [...] 74.1 H Lymph % (Auto) 11.8 L Plumas % (Auto) 12.2 H Eos % (Auto) [...] Clarity Clear Urine pH 6.0 Ur Specific Burdett 1.015 Urine Protein Negative Urine Glucose (UA) [...] (Auto) Neut % (Auto) Lymph % (Auto) Plumas % (Auto) Eos % (Auto) Baso % [...] Color Urine Clarity Urine pH Ur Specific Burdett Urine Protein Urine Glucose (UA) Urine Ketones Urine Occult Blood Urine Nitrite Urine Bilirubin Urine Urobilinogen Ur Leukocyte Esterase Urine RBC Urine WBC Ur Squamous Epith Cells Urine Bacteria Urine Mucus Radiography Diagnostic Testing: Clinical Impression(s) from Imaging Studies Chest X-Ray 02/14/25 11:40 IMPRESSION: 1. Lingular atelectasis or pneumonia. 2. Suggestion of COPD. Reading Location: [facility] Discharge Plan Disposition Disposition: Acute Care Hospital [facility] Discharge Date/Time: 02/14/25 15:50 What to do if you have Problems For any increased pain, shortness of breath, bleeding, nausea or vomiting, chestpain, or any unexpected problems, contact your Primary Care Provider. Call [facility] ([phone]) or report to the closest Emergency Room. Call 911 if necessary. 02/14/25 1746 <Electronically signed by Arya Gannon DO> Cosigner Signature (if applicable): CC: Dr. Genevieve Wu MD ~ Signed [facility] Work Phone: 1(655) 874-707509-02-2025 Radiology Diagnostic study [facility]06-17-2025 Evaluation note* Diagnosis Onset Date Resolution Status Admit Date Dementia chronic November 29 10:05am Essential tremor chronic November 10:05am Restless leg syndrome chronic Madhu e 2024 10:05am Vitamin D deficiency resolved November 29, 2024 10:05am Abnormal chest CT chronic December 072024 9:10am Community acquired pneumonia acute February 14, 2025 3:11pm [facility] Work Phone: [phone] Radiology Diagnostic study note [facility] Imaging Services [address] [place] [address] Chest without Contrast MR#: [id number] Acct: [id number] Name: SAPNA BULLARD Rep #: [id number] : 1940 F 84 From: Thaddeus Chaparro MD PCP: Dr. Genevieve Wu MD Status: R EG CLI Study:Chest without Contrast Date of Exam: 11/28/24 Exam# [id number] Ordering Dr: Valdez DO PROCEDURE: CHEST WITHOUT [...] 4. Other findings as noted. Reading Location: [id number] CC: Dr. Willian Palm DO; Dr. Genevieve Wu MD ~ Administration Assistant: Signed [facility] Work Phone: 1([phone]) 184-363904-23-2025 Evaluation note* Diagnosis Onset Date Resolution Status [...] Abnormal chest CT chronic December 072024 9:10am [facility] Work Phone: 1(220) [phone] Evaluation note* Diagnosis Onset Date Resolution Status Admit Date Abnormal chest CT chronic August 142024 11:20am Left bundle branch block acute October 05, 2024 9:00am Abnormal chest CT chronic September 142024 9:00am Dementia chronic October 05 9:00am Hyperlipemia chronic October 05, 2024 9:00am [place] [employer] [facility] Work Phone: [phone] 139-343803-27-2025 Evaluation note* Diagnosis Onset Date Resolution Status [...] D deficiency resolved November 29, 2024 10:05am [facility] Work Phone: 1([phone]) [phone] Evaluation note* Diagnosis Onset Date Resolution Status [...] Abnormal chest CT chronic December 072024 9:10am [facility] Work Phone: [phone] 178-263702-04-2025 Evaluation note* Diagnosis Onset Date Resolution Status [...] 9:00am Hyperlipemia chronic October 05, 2024 9:00am [facility] Work Phone: 1(728) 867-514212-31-2024 [facility]11-08-2023 Progress note Author John Johnston [facility] April 22, 2023 4:40pm Note Date/Time April 22, 2023 4 :41pm [facility] System Medical Records Department [address] [place] [address] Progress Note - Hospitalist 04/22/231636 MR#: [id number] Acct: [id number] Name: SAPNA BULLARD Rep #:[id number] : 1940 83 From: John Johnston DO PCP: Dr. Nicci Lemus MD Status:ADM I N Location: [facility] [place]-7 Reason for Visit Reason for Visit: Diagnoses [...] Document 04/17/23 11:22 NITZA (Rec: 04/17/23 11:22 [facility] Desktop) Nutrition Malnutrition Evidence of Malnutrition Exists [...] 35 minutes Charges/Coding Visit Charges Inpatient E&M: 05560 Subs Hosp L2 04/22/23 1640 <Electronically signed by John Johnston DO> Cosigner Signature (if applicable): CC: ~ Signed [facility] Work Phone: [phone]) 301-842311-07-2023 Progress note Author John Johnston [facility] April 21, 2023 5:05pm Note Date/Time April 21, 2023 4 :52pm [facility] Medical Records Department [address] [place] [address] [place] [address] Progress Note - Hospitalist 04/21/23 1649 MR#: [id number] Acct: [id number] Name: SAPNA BULLARD Rep #:[id number] : 1940 83 From: John Johnston DO PCP: Dr. Nicci Lemus MD Status:ADM I N Location: [place] [address] Reason for Visit Reason for Visit: Diagnoses [...] offered, patient will need placement in a prison facility for short-term rehab services #3 acute cystitis-again patient will be transition to Keflex starting tomorrow #4 acute debility secondary to multiple medical problems including dementia, pneumonia, and cystitis-PT and OT are seeing patient, she will need short-term placement in a prison facility #5 essential tremor-patient is on propranolol [...] 35 minutes Charges/Coding Visit Charges Inpatient E&M: 19938 Subs Hosp L2 04/21/23 1705 <Electronically signed by John Johnston DO> Cosigner Signature (if applicable): CC: ~ Signed [facility] Work Phone: 1(900) 216-249611-06-2023 Progress note Author [facility] April 20, 2023 7:08pm Note Date/Time April 20, 2023 7 :08pm [facility] Medical Records Department [address] [place] [address] Progress Note - Hospitalist 04/20/23 1859 MR#: [id number] Acct: [id number] Name: SAPNA BULLARD Rep #:[id number] : 1940 83 From: John Johnston DO PCP: Dr. Nicci Lemus MD Status:ADM I N Location: [place] [address]-1 Reason for Visit Reason for Visit: Diagnoses [...] (Auto) 65.0, Lymph % (Auto) 17.3 L, Plumas % (Auto) 16.0 H, Eos % (Auto) [...] offered, patient will need placement in a prison facility for short-term rehab services #3 acute cystitis-again patient will be transition to Keflex starting tomorrow #4 acute debility secondary to multiple medical problems including dementia, pneumonia, and cystitis-PT and OT are seeing patient, she will need short-term placement in a prison facility #5 essential tremor-patient is on propranolol Total clinical time spent by myself addressing patient's medical issues, reviewing all of her data, and collaborating with patient's care team: 35 minutes Charges/Coding Visit Charges Inpatient E&M: 65635 Subs Hosp L2 04/20/231907 <Electronically signed by John Johnston DO> Cosigner Signature (if applicable): CC: ~ Signed [facility] Work Phone: 1(728) 866-803511-05-2023 Progress note Author Pravin Cruz [facility] April 19, 2023 8:59am Note Date/Time April 19, 2023 8 :59am [facility] Medical Records Department [address] [place] [address] Progress Note - Hospitalist 04/19/23856 MR#: [id number] Acct: [id number] Name: SAPNA BULLARD Rep #:[id number] : 1940 83 From: Pravin ty MD PCP: Dr. Nicci Lemus MD Status:ADM I N Location: [place] [address] Subjective Subjective No issues overnight, she is [...] 04/18: Urine culture Bartholomew reported. E. coli 54007?08680 E. coli, ramon sensitivity sensitivity available. Continue [...] DVT: Lovenox Charges/Coding Visit Charges Inpatient E&M: 10646 Subs Hosp L2 04/19/23 0859 <Electronically signed by Pravin Cruz MD> Cosigner Signature (if applicable): CC: ~ Signed [facility] Work Phone: [phone] 399-405311-04-2023 Progress note Author Darinel Carlos [facility] April 18, 2023 2:11pm Note Date/Time April 18, 2023 1 0:00am [facility] Medical Records Department [address] [place] [address] Progress Note - Hospitalist 04/18/2359 MR#: [id number] Acct: [id number] Name: SAPNA BULLARD Rep #:[id number] : 1940 83 From: Darinel Morocho PCP: Dr. Nicci Lemus MD Status:ADM I N Location: [place] [address] Reason for Visit Reason for Visit: Diagnoses [...] The patient is an 83 y/o F [facility] ED on 04/16/23 with history of [...] 04/18: Urine culture Bartholomew reported. E. coli 29611?08596 E. coli, ramon sensitivity sensitivity available. Continue [...] Care Planning Charges/Coding Visit Charges Inpatient E&M: 43509 Subs Hosp L2 04/18/23 1411 <Electronically signed by Darinel Carlos MD> Cosigner Signature (if applicable): CC: ~ Signed [facility] Work Phone: 1([phone]) 135-933211-03-2023 Progress note Author Darinel Carlos [facility] April 17, 2023 3:54pm Note Date/Time April 17, 2023 7 :31am [facility] Medical Records Department [address] [place] [address] Progress Note - Hospitalist 04/17/23727 MR#: [id number] Acct: [id number] Name: SAPNA BULLARD Rep #:[id number] : 1940 83 From: Darinel Morocho PCP: Dr. Nicci Lemus MD Status:ADM I N Location: [place] [address] Reason for Visit Reason for Visit: Diagnoses [...] 80.3 H, Lymph % (Auto) 10.8 L, Plumas % (Auto) 8.0, Eos % (Auto) 0.1, [...] Sl. Cloudy, Urine pH 7.0, Ur Specific Burdett 1.010, Urine Protein 15 H, Urine Glucose [...] 73.6 H, Lymph % (Auto) 13.6 L, Plumas % (Auto) 11.3 H, Eos % (Auto) [...] The patient is an 83 y/o F [facility] ED on 04/16/23 with history of [...] 113 Gm Tube) 1 applic TOPICAL 4X/DAY [facility]; Protocol Last Admin: 04/17/23 13:58 Dose: 1 applic Donepezil HCl (Donepezil Hcl 10 Mg Tablet) 10 mg PO QHS [facility] Last Admin: 04/16/23 22:31 Dose: 10 mg Guaifenesin (Guaifenesin 10 Ml Udc (200mg/10ml)) 20 ml PO Q4H PRN PRN PRN Reason: COUGH Hydralazine HCl (Hydralazine 20 Mg/Ml Vial) 10 mg IV Q4H PRN PRN; Protocol PRN Reason: SBP > 160 Sodium Chloride () 250 mls @ 15 mls/hr IV .[id number] PRN PRN Reason: Additional IVPB Infusion Sodium Chloride () 250 mls @ 15 mls/hr IV .R60K35I PRN PRN Reason: Saline Flush Ceftriaxone Sodium (Rocephin) 1 gm in 50 mls @ 100 mls/hr IV Q24H [facility] Azithromycin 500 mg/ Dextrose 255 mls @ 250 mls/hr IV Q24H [facility] Melatonin (Melatonin 3 Mg Tablet) 3 mg PO QHS PRN PRN PRN Reason: INSOMNIA Memantine (Memantine Hydrochloride 10 Mg Tablet) 10 mg PO BID [facility] Last Admin: 04/17/23 08:31 Dose: 10 mg Mirtazapine (Mirtazapine 15 Mg Tablet) 7.5 mg PO QHS [facility] Last Admin: 04/16/23 22:30 Dose: 7.5 mg Nutritional Formula (Lactose Free) (Ensure Plus High Protein 120 Ml Liquid) 120ml PO 4X/DAY [facility] Last Admin: 04/17/23 13:58 Dose: 120 ml Ondansetron HCl (Ondansetron 4 Mg/2 Ml Vial) 4 mg IV Q8H PRN PRN PRN Reason: NAUSEA/VOMITING Pramipexole Dihydrochloride (Pramipexole Di-Hcl 0.5 Mg Tablet) 0.5 mg PO QHS [facility] Last Admin: 04/16/23 22:31 Dose: 0.5 mg Prochlorperazine Edisylate (Prochlorperazine 10 Mg/2 Ml Vial) 5 mg IV Q4H PRN PRN PRN Reason: Breakthrough nausea/vomiting Propranolol HCl (Propranolol 40 Mg Tablet) 40 mg PO 0600 [facility] Last Admin: 04/17/23 04:09 Dose: Not Given Propranolol HCl (Propranolol 10 Mg Tablet) 20 mg PO 1200,1700 [facility] Last Admin: 04/17/23 12:48 Dose: 20 [...] Score 4-10 Charges/Coding Visit Charges Inpatient E&M: 56430 Subs Hosp L2 04/17/23 1554 <Electronically signed by Darinel Carlos MD> Cosigner Signature (if applicable): CC: ~ Signed [facility] Work Phone: 1(775) 615-391011-03-2023 History and physical note Author Karon Nunes [facility] April 16, 2023 10:33pm Note Date/Time April 16, 2023 7 :37pm [facility] Medical Records Department [address] [place] [address] H&P Exam - Hospitalist 04/16/231935 MR#: [id number] Acct: [id number] Name: SAPNA BULLARD Rep #:[id number] : 1940 83 From: Karon Nunes MD PCP: Dr. Nicci Lemus MD Status:ADM I N Location: [facility] [place]700-9 HPI - General General Date of Admission: 04/16/23 Date of Service: 04/16/23 Chief Complaint: Confusion, weakness, debility. HPI Narrative The patient is an 83 y/o F w/ PMHx: Essential tremor, Allergic rhinitis, GERD, Chronic normocytic anemia/Fe deficiency anemia, Anxiety and Depression, Dementiaunclear type with unclear behavioral disturbance history, Former tobacco use whopresents to the [facility] ED on 04/16/23 with history of [...] as well as azithromycin and IV Rocephin. [facility] Medical History (Updated 04/16/23 @ 22:30 [...] details: PT frequency: 1-2 times per week herrera/sikh: Jainism seatbelt use: always ROS Review of Systems [...] 80.3 H, Lymph % (Auto) 10.8 L, [place] % (Auto) 8.0, Eos % (Auto) 0.1, [...] Sl. Cloudy, Urine pH 7.0, Ur Specific Burdett 1.010, Urine Protein 15 H, Urine Glucose [...] history, Former tobacco use whopresents to the [facility] ED on 04/16/23 with history of [...] 16 minutes. Charges/Coding Visit Charges Inpatient E&M: 28804 Init Hosp L3 Procedures Hospitalists Procedures: 36810 Advncd Care Plan 30 Min 04/16/232232 <Electronically signed by Karon Nunes MD> Cosigner Signature (if applicable): CC: Dr. Karon Nunes MD; Dr. Nicci Lemus MD~ Signed [facility] Work Phone: 1(219) 685-221611-02-2023 Discharge summary Author Nicholas Noel [facility] April 16, 2023 9:08pm Note Date/Time April 16, 2023 7 :09pm [facility] Medical Records Department [address] [place] [address] Emergency Department Summary 04/16/23 MR#: [id number] Acct: [id number] Name: SAPNA BULLARD Rep #:[id number] : 1940 83 From: Nicholas Cohen DO PCP: Dr. Nicci Lemus MD Status:ADM I N Location: [place] [address] HPI History of Present Illness Chief Complaint: [...] or short of breath. She complainsof dysuria. [facility] Medical History Acid reflux Acute UTI Anemia [...] details: PT frequency: 1-2 times per week herrera/sikh: Jainism seatbelt use: always ROS ROS ED Constitutional [...] 80.3 H Lymph % (Auto) 10.8 L [place] % (Auto) 8.0 Eos % (Auto) 0.1 [...] Sl. Cloudy Urine pH 7.0 Ur Specific Burdett 1.010 Urine Protein 15 H Urine Glucose [...] your Primary Care Provider. Call [facility] ([phone]) or report to the closest Emergency Room. Call 911 if necessary. 04/16/232107 <Electronically signed by Nicholas Cohen DO> Cosigner Signature (if applicable): CC: Dr. Nicci Lemus MD ~ Signed [facility] Work Phone: 1(835) 562-496809-03-2022 Hospital Discharge instructions Additional Instructions Recommend repeat basic metabolic panel in 3 to 5 days to assess BUN and creatinine [facility] Work Phone: Consult note Author Tanya Cha [facility] April 23, 2023 1:32pm Note Date/Time April 23, 2023 1 :32pm [facility] Medical Records Department [address] [place] [address] Counseling Note - Pharmacy 04/23/23 1332 MR#: [id number] Acct: [id number] Name: SAPNA BULLARD Rep #:[id number] : 1940 83 From: Tanya Cha PCP: Dr. Nicci Lemus MD Status:DIS I N Y Location: [place] [address] Pharmacy [place] Med Reconciliation Pharmacy Service has performed discharge medication reconciliation for this patient upon transfer to [place] The patient's discharge medication list was reviewed [...] Signature (if applicable): Date CC: ~ Signed [facility] Work Phone: Discharge summary Author [facility] April 23, 2023 11:48am Note Date/Time April 23, 2023 1 1:38am [facility] Medical Records Department [address] [place] [address] Instructions for Home/Discharge Instructions 04/23/23 1138 MR#: [id number] Acct: [id number] Name: SAPNA BULLARD Rep #:[id number] : 1940 83 From: John Johnston DO [...] Up: Lalo Palm DO [Med Staff - Pattern Scratcher] - Within 1 Month Nicci Lemus MD [Primary Care Provider] - Disposition Disposition (needs filled in before D/C Order can be placed): Assisted Living 04/23/23 1148<Electronically signed by John Johnston DO>John Johnston DO CC: Dr. Karon Nunes MD; Dr. Nicci Lemus MD; Dr. Pravin Cruz MD; Dr. Darinel Carlos MD ~ Signed [facility] Work Phone: Discharge summary Author Felicia [facility] Note Date/Time February 19, 2025 12:27pm [facility] Medical Records Department [address] [place] [address] Instructions for Home/Discharge Instructions 02/19/25 1226 MR#: [id number] Acct: [id number] Name: SAPNA BULLARD Rep #:[id number] : 1940 85 From: Felicia Paniagua MD [...] MD; Dr. Liudmila Morin MD ~ Signed [facility] Work Phone: Evaluation note* Diagnosis Onset Date Resolution Status Cognitive decline acute Essential tremor chronic GERD (gastroesophageal reflux disease) chronic Low back pain chronic Acute hypokalemia acute Acute UTI acute Dehydration acute Encephalopathy acute Fall acute Rhabdomyolysis acute Essential tremor chronic [facility] Work Phone: Evaluation note* Diagnosis Onset [...] infection acut e Vitamin D deficiency acute [facility] Work Phone: Evaluation note* Diagnosis Onset Date Resolution Status Essential tremor chronic Acute hypokalemia resolved Dehydration resolved Encephalopathy resolved Allergic rhinitis acute Debility acute Essential tremor acute Insomnia acute Iron deficiency anemia acute Osteoporosis acute Restless leg syndrome acute Vitamin D deficiency acute Encephalopathy resolved Hypokalemia resolved Rhabdomyolysis resolved Urinary tract infection reso lved Dementia chronic Fatigue chronic [facility] Work Phone: Evaluation note* Diagnosis Onset Date Resolution Status Anxiety chronic Vitamin D deficiency chronic Urinary tract infection none active UTI (urinary tract infection) acute [facility] Work Phone: Evaluation note* Diagnosis Onset Date Resolution Status UTI (urinary tract infection) resolved Anxiety chronic Vitamin D deficiency chronic [facility] Work Phone: Evaluation note* Diagnosis Onset Date Resolution Status Anxiety chronic Vitamin D deficiency chronic Urinary tract infection none active UTI (urinary tract infection) resolved [facility] Work Phone: History and physical note Author Liudmila Morin [facility] Note Date/Time February 14, 2025 3:22pm [facility] Medical Records Department [address] [place] [address] H&P Exam - Hospitalist 02/14/25 1511 MR#: [id number] Acct: [id number] Name: SAPNA BULLARD Rep #:[id number] : 1940 85 From: Liudmila Morin MD PCP: Dr. Genevieve Wu MD Status:A DM IN Location: MS3 MA166-1 HPI - General General Date of Admission: 02/14/25 Date of Service: 02/14/25 Chief Complaint: Altered mental status, weakness HPI Narrative SAPNA BULLARD, is a 85-year-old female history of GERD, dementia, essential tremor,restless leg syndrome who presented to [facility] ED 02/14/2025 from [facility] for confusion, weakness, stool and urinary incontinence. [...] up. Unable to obtain any further history [facility] Medical History (Updated 02/14/25 @ 15:21 by [...] Unknown History gram-2.25 kcal/mL oral liquid (Boost [facility]) propranolol 20 mg tablet 20 [...] details: PT frequency: 1-2 times per week herrera/sikh: Jainism seatbelt use: always ROS ROS Narrative Unable [...] (Auto) 74.1 H, Lymph % (Auto)11.8 L, [place] % (Auto) 12.2 H, Eos % (Auto) [...] Clarity Clear, Urine pH 6.0, Ur Specific [place] 1.015, Urine Protein Negative, Urine Glucose (UA) [...] pneumonia. 2. Suggestion of COPD. Reading Location: [facility] Assessment & Plan Assessment/Plan (1) Community acquired [...] Morin MD Charges/Coding Visit Charges Inpatient E&M: 43509 Init Hosp L2 02/14/25 1522 <Electronically signed by Liudmila Morin MD> Cosigner Signature (if applicable): CC: Dr. Genevieve Wu MD; Dr. Liudmila Morin MD~ Signed [facility] Work Phone: Reason for referral (narrative)No reason for referral information availableWCommunity [facility] Work Phone: Reason for Referral Status Reason Specialty Diagnoses / Procedures Referred By Contact Referred To Contact Authorized Radiology Diagnoses Other closed displaced fracture of distal end of left humerus, initial encounter Procedures CT ELBOW LEFT WO CONTRAST Gerson Adamson MD [address] [facility] [address] [place] [id number] Assessments Diagnosis Other closed displaced fracture of [...] Date/ Time Name of Medical Power of Elevator Operator Service annette bullard December 10, 2021 8:22pm Living Will Yes December 10, 2021 8:22pm Power of Elevator Operator Service Yes December 10 8:22pm Advance Directive Response Recorded Date/ Time Name of Medical Power of Elevator Operator Service Annette Bullard December 11, 2021 1:38am Living Will Yes December 11, 2021 1:38am Power of Elevator Operator Service Yes December 11 1:38am Advance Directive Response Recorded Date/ Time Name of Medical Power of Elevator Operator Service Annette Bullard December 11, 2021 1:38am Name of Medical Power of Elevator Operator Service Annette Bullard December 13, 2021 4:16pm Living Will Yes December 17, 2021 5 :14pm Power of Elevator Operator Service No December 17, 2021 5:14pm Advance Directive Response Recorded Date/ Time Name of Medical Power of Elevator Operator Service Annette Bullard December 11, 2021 1:38am Name of Medical Power of Elevator Operator Service Annette Bullard December 13, 2021 4:16pm Name of Medical Power of Elevator Operator Service son February 15, 2022 1:17pm Living Will Yes February 15 1:17pm Power of Elevator Operator Service Yes February 15, 2022 1:17pm Advance Directive Response Recorded Date/ Time Name of Medical Power of Elevator Operator Service Annette Bullard April 16, 2023 8:33pm Living Will Yes April 16 8:33pm Power of Elevator Operator Service Yes April 16, 2023 8:33pm Advance Directive Response Recorded Date/ Time Living Will Yes April 16 9:33pm Do you have a Healthcare Power of Elevator Operator Service? Yes April 16, 2023 9:33pm Advance Directive Response Recorded Date/ Time Do you have a Healthcare Power of Elevator Operator Service? Yes February 14, 2025 3:37pm Name of Medical Power of Elevator Operator Service thaddeus bullard son February 14, 2025 3:37pm [...] M FU July 19, 2024 9 :51am [facility] July 5:00am J98.4 Other [...] M FU July 19, 2024 9 :51am [facility] July 5:00am J98.4 Other disorders of lung July 162024 5:50pm [facility] August 29, 2024 5:0 0am Lung Nodule September 08, 2024 11: 20am [facility] October 03, 2024 5:[address] (Self) October 05, 2024 9:0 0am [facility] October 31, 2024 4:0 0am CHEST PAIN November 08, 2024 8:58a m Chief Complaint Admit Date [facility] July 5:00am J98.4 Other disorders of lung July 162024 5:50pm [facility] August 29, 2024 5:0 0am Lung Nodule September 08, 2024 11: 20am [facility] October 03, 2024 5:[address] (Self) October 05, 2024 9:0 0am [facility] October 31, 2024 4:0 0am [...] CT (Self) October 05, 2024 9:0 0am [facility] October 31, 2024 4:0 0am [...] CT (Self) October 05, 2024 9:0 0am [facility] October 31, 2024 4:0 0am [...] CT (Self) October 05, 2024 9:0 0am [facility] October 31, 2024 4:0 0am [...] NEW CONCERN October 27, 2024 5:30p m [facility] October 31, 2024 4:0 0am [...] NEW CONCERN October 27, 2024 5:30p m [facility] October 31, 2024 4:0 0am [...] 5:00 am PNEUMONIA [facility] 3:11pm Reason for [...] NEW CONCERN October 27, 2024 5:30p m [facility] October 31, 2024 4:0 0am [...] section and content) DATE CREATED AUTHOR 07/07/2020 [facility] DATE CREATED AUTHOR AUTHOR'S ORGANIZ ATION 12/16/2022 [facility] ([place]) DATE CREATED AUTHOR AUTHOR'S ORGANIZ ATION 02/03/2025 [facility] DATE CREATED AUTHOR AUTHOR'S ORGANIZ ATION 03/03/2025 [facility] Goals (unrecognized section and content) Goals [...] 31, 2024 End: October 31, 2024 Genevieve UCBA MD Referring Provider Active Start: October 31, [...] Provider, Referr ing Provider Active Elliott Grigsby REGISTERED MASSAGE THERAPIST, REGISTERED MASSAGE THERAPIST-C Attending Provider Active Team Status: Active Member [...] End: July 04, 2024 Barbara Castro NP REGISTERED MASSAGE THERAPIST-C Attending Provider Active Start: July 04, 2024 [...] 2024 End: November 21, 2024 Barbara Castro REGISTERED MASSAGE THERAPIST, REGISTERED MASSAGE THERAPIST-C Attending Provider Active Start: November 21, 2024 [...] End: October 27, 2024 Barbara Castro NP REGISTERED MASSAGE THERAPIST-C Attending Provider Active Start: October 27, 2024 [...] 2024 End: October 27, 2024 Barbara Castro REGISTERED MASSAGE THERAPIST, REGISTERED MASSAGE THERAPIST-C Attending Provider Active Start: October 27, 2024 [...] End: November 21, 2024 Barbara Castro NP, REGISTERED MASSAGE THERAPIST-C Attending Provider Active Start: November 21, 2024 [...] Star t: February 15, 2025 Dr. Felicia aPniagua MD Attending Provider Active Start: February 15, 2025 Dr. Felicia Paniagua MD Other Provider Active St art: February 15, 2025 Team Status: Active Member Role/Relationship Status Dates Dr. Genevieve Wu MD Primary Care Provider Active Start: February 16, 2025 Dr. Ayra Gannon DO Emergency Provider Activ e Start: [...] BE BASED ON THE PRIMARY CLINICAL RECORDS. [employer] [facility]. provides no warranty or guarantee of the accuracy or completeness of information in this document.
[2025-03-07 06:39] LABS: Hematocrit 39.0 % (37-47); Hemoglobin 12.1 g/dL (12.0-15.0); Immature Granulocytes Count 0.030 X10^3/uL (0.0-0.0); Mean Corp Hgb Conc 31.0 g/dL (32-36); Mean Corpuscular Volume 91.8 fL (81-99); Mean Platelet Vol. 9.2 fl (6.2-12.0); NRBC Flagged by Analyzer 0 % (0-5); Platelet Count 452 K/mm3 (150-450); RBC Distribution Width CV 15.2 % (11.6-14.6); RBC Distribution Width SD 51.2 fl (35.1-43.9); Red Blood Count 4.25 M/mm3 (4.2-5.4); White Blood Count 7.8 K/mm3 (4.4-11.0)
[2025-03-07 06:49] LABS: Anion Gap 12 (5-15); BUN 13 mg/dL (4-19); BUN/Creat Ratio 13.7 RATIO (10-20); Calcium,Total 9.7 mg/dL (7.6-11.0); Carbon Dioxide 26.6 mmol/L (21.0-32.0); Chloride 99 mmol/L (98-108); Glucose 82 mg/dL (70-99); Potassium 3.7 mmol/L (3.3-5.1)
== END ==
LOC: OLS.WHLTSB 04:05
PROVIDERS: PCP Internal Medicine; Referring Provider Internal Medicine; Visit Provider Internal Medicine
DX: I10 Essential (primary) hypertension (principal)
CPT/HCPCS: 36415; 80048; 85025

== ENCOUNTER → 2025-03-21 05:25 | Outpatient (REF) | payer MEDICARE, SELFPAY ==
[2025-03-21 10:04] LABS: Hematocrit 38.2 % (37-47); Hemoglobin 11.6 g/dL (12.0-15.0); Immature Granulocytes Count 0.040 X10^3/uL (0.0-0.0); Mean Corp Hgb Conc 30.4 g/dL (32-36); Mean Corpuscular Volume 93.4 fL (81-99); Mean Platelet Vol. 9.5 fl (6.2-12.0); NRBC Flagged by Analyzer 0 % (0-5); Platelet Count 343 K/mm3 (150-450); RBC Distribution Width CV 14.3 % (11.6-14.6); RBC Distribution Width SD 49.2 fl (35.1-43.9); Red Blood Count 4.09 M/mm3 (4.2-5.4); White Blood Count 8.5 K/mm3 (4.4-11.0)
[2025-03-21 10:25] LABS: Anion Gap 12 (5-15); BUN 13 mg/dL (4-19); BUN/Creat Ratio 14.1 RATIO (10-20); Calcium,Total 9.4 mg/dL (7.6-11.0); Carbon Dioxide 24.9 mmol/L (21.0-32.0); Chloride 104 mmol/L (98-108); Glucose 110 mg/dL (70-99); Potassium 3.9 mmol/L (3.3-5.1)
== END ==
LOC: OLS.WHLTSB 05:25
PROVIDERS: PCP Internal Medicine; Visit Provider Internal Medicine
DX: I10 Essential (primary) hypertension (principal); M54.50 Low back pain, unspecified; E43 Unspecified severe protein-calorie malnutrition; M62.561 Muscle wasting and atrophy, not elsewhere classified, right lower leg; M62.562 Muscle wasting and atrophy, not elsewhere classified, left lower leg; D75.839 Thrombocytosis, unspecified
CPT/HCPCS: 36415; 80048; 85025

== ENCOUNTER → 2025-04-24 | Outpatient (REF) | payer MEDICARE, SELFPAY ==
--- OUTSIDE RECORDS SUMMARY | 2025-04-24 04:01 | XMS RPT_ITS | CCD ---
Author Organization [facility] Care Team Providers Care Patient Resource Coordinator Name Role Phone Unavailable Primary Care [...] Provider Dr. Vish Cook Attending Provider Seb YARN MAN, YARN MANRobbin Gonzalez Attending Provider Dr. Nicholas Cohen Emergency Provider [phone] Dr. Nicci Lemus Primary Care Provider Dr. Karon Nunes Admit Provider Dr. Karon Nunes Other Provider Dr. Darinel Carlos Attending Provider Dr. Darinel Carlos Other Provider Dr. Pravin Cruz Attending Provider Dr. Pravin Cruz Other Provider Dr. John Johnston Attending Provider Dr. 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 Vallejo Referring Provider [phone] Jaden YARN MAN-C, Idalia Hilton Attending Provider Jazmin SÁNCHEZ, Dr. Vallejo Primary Care Provider Genevieve Wu MD Attending Provider Unavailkali Castro YARN MAN-CBarbara Attending Provider Jazmin SÁNCHEZ, Dr. Vallejo Primary Care Provider Jazmin SÁNCHEZ, Dr. Vallejo Referring Provider [phone] Matthew YARN MAN-C, Attending Provider Dr. Willian Palm DO Attending [...] Dr. Sharon Crouch MD Attending Provider [phone] Dr. Willian Palm DO Attending Provider Dr. Willian Palm DO Referring Provider Jazmin SÁNCHEZ, Dr. Vallejo Referring Provider Joyce SÁNCHEZ, Dr. Wahl Attending Provider [phone] Jaden YARN MAN-CIdalia Attending Provider [facility], Dr. Koenig Emergency Provider Mikel SÁNCHEZ, Dr. Nur Admit Provider Mikel SÁNCHEZ, Dr. Nur Attending Provider Mikel SÁNCHEZ, Dr. Nur Other Provider Arcelia SÁNCHEZ, Dr. Felicia Nick Attending Provider Arcelia SÁNCHEZ, Dr. Felicia Nick Other Provider Manju SÁNCHEZ, Dr. Karon Marrero Attending Provider Jazmin SÁNCHEZ, Dr. Vallejo Primary Care Physician Matthew PACHECO-CBarbara Attending Physician Jazmin SÁNCHEZ, Genevieve Attending Physician Unavail able [facility] Dr. Willian RINCON Attending Physician Joyce SÁNCHEZ, Dr. Wahl Attending Physician Jaden PACHECO-Sanjana, Idalia Hilton Attending Physician [facility], Dr. Koenig Emergency Departmen t Physician Mikel SÁNCHEZ, Dr. Nur Admitting Physician Mikel SÁNCHEZ, Dr. Nur Nurse Practitioner Arcelia SÁNCHEZ, Dr. Felicia Nick Attending Physician [phone] Arcelia SÁNCHEZ, Dr. Felicia Nick Nurse Practitioner Jazmin SÁNCHEZ, Genevieve Referring Provider Unavaila ble Barbara Castro Attending Unavailable Oleghe, Efewongbe Primary Care Unavailable TicktonBarbara Attending Unavailable Oleghe, Efewongbe Primary Care Unavailable TickBarbara welch Attending Unavailable Oleghe, Efewongbe Primary Care Unavailable TickBarbara welch Attending Unavailable Oleghe, Efewongbe Primary Care Unavailable Oleghe OLS, Efewongbe Attending Unavailabl e Oleghe, Efewongbe Primary Care Unavailable Oleghe OLS, Efewongbe Attending Unavailabl e Oleghe, Efewongbe Primary Care Unavailable Sharon Crouch Attending Unavailable Oleghe, Efewongbe Primary Care Unavailable Villagran, Achintya Referring Unavailable Nicci Lemus Primary Care Unavailable Chevy Lee Attending Unavailable Villagran, Achintya Consulting Unavailable Villagran, Achintya Admitting Unavailable Jayjay, Nicci Primary Care Unavailable John Johnston Attending [...] Tavera Consulting Unavailable Junaid Grigsby Consulting Unavailable DheJohanna khanJohnathan Consulting Unavailable Mercedes Whiting Consulting Unavailable Lux Fletcher Consulting Unavailable Jassi Ashton Consulting Unavailable Bladimir Treviño Consulting Unavailable John Johnston Consulting Unavailable Liudmila Morin Consulting Unavailable Liudmila Morin Admitting Unavailable Koram, Felicia Park Attending Unavailable Oleghe, Efewongbe Primary Care Unavailable Koram, Felicia Park Consulting Unavailable Oleghe, Efewongbe Primary Care Unavailable Oleghe OLS, Efewongbe Referring Unavailabl e Oleghe OLS, Efewongbe Attending Unavailabl e Oleghe OLS, Efewongbe Attending Unavailabl e Oleghe, Efewongbe Primary Care Unavailable Oleghe OLS, Efewongbe Attending Unavailabl e Oleghe, Efewongbe Primary Care Unavailable Oleghe, Efewongbe Primary Care Unavailable Oleghe OLS, Efewongbe Attending Unavailabl e Oleghe, Efewongbe Primary Care Unavailable Willian Palm Attending Unavailable Willian Palm Referring Unavailable Oleghe OLS, Efewongbe Attending Unavailabl e Oleghe OLS, Efewongbe Referring Unavailabl e Oleghe, Efewongbe Primary Care Unavailable Oleghe OLS, Efewongbe Attending Unavailabl e Oleghe, Efewongbe Primary Care Unavailable Kornhaus, Nicci Primary Care Unavailable Oleghe OLS, Efewongbe Attending Unavailabl e Kornhaus, Nicci Primary Care Unavailable Blake Juarez Attending Unavailable Willian Palm Attending Unavailable Oleghe, Efewongbe Primary Care Unavailable Willian Palm Referring Unavailable Oleghe OLS, Efewongbe Attending Unavailabl e Oleghe, Efewongbe Primary Care Unavailable Oleghe OLS, Efewongbe Attending Unavailabl e Oleghe, Efewongbe Primary Care Unavailable Oleghe, Efewongbe Attending Unavailable Oleghe, Efewongbe Referring Unavailable Oleghe, Efewongbe Primary Care Unavailable Pravin Cruz Attending Unavailable Pravin Cruz Consulting Unavailable Liudmila Morin Attending Unavailable Oleghe, Efewongbe Primary Care Unavailable Vish Cook Attending Unavailable Oleghe, Efewongbe Referring Unavailable Yunior Desai Attending Unavailable Oleghe, Efewongbe Primary Care Unavailable Oleghe, Efewongbe Referring Unavailable Oleghe, Efewongbe Primary Care Unavailable Willian Palm Attending Unavailable Oleghe, Efewongbe Referring Unavailable Barbara Castro Attending Unavailable Oleghe, Efewongbe Primary Care Unavailable Oleghe, Efewongbe Primary Care Unavailable Oleghe, Efewongbe Attending Unavailable Barbara Castro Attending Unavailable Oleghe, Efewongbe Primary Care Unavailable Barbara Castro Attending Unavailable Oleghe, Efewongbe Primary Care Unavailable Oleghe, Efewongbe Attending Unavailable Oleghe, Efewongbe Primary Care Unavailable Barbara Castro Attending Unavailable Oleghe, Efewongbe Primary Care Unavailable Kornhaus, Nicci Referring Unavailable Vish Cook Attending Unavailable Oleghe, Efewongbe Primary Care Unavailable Idalia Stanley Attending Unavailable Oleghe, Efewongbe Referring Unavailable Oleghe, Efewongbe Primary Care Unavailable John Johnston Referring Unavailable Willian Palm Attending Unavailable Hilaria Villagran Attending Unavailable Yunior Desai Attending Unavailable Yunior Desai Referring Unavailable Oleghe, Efewongbe Primary Care Unavailable Liudmila Morin Admitting Unavailable Oleghe, Efewongbe Primary Care Unavailable Felicia Paniagua Attending Unavailable Liudmila Morin Consulting Unavailable Hilaria Villagran Consulting Unavailable Hilaria Villagran Admitting Unavailable Nicci Lemus Primary Care Unavailable Pravin Cruz Attending Unavailable John Johnston Consulting Unavailable Nicci Lemus Primary Care Unavailable Genevieve Nguyen Attending UnavailGenevieve Nelson Attending UnavailGenevieve Rodriguez Primary Care Unavailable Nicci Lemus Primary Care Unavailable Genevieve Nguyen Attending Unavailrogerio e Medications Current Medications Medication Drug Class(es) Dates [...] (500 MG) alendronic acid 70 mg oral t ablet (20 sources) Bisphosphonate Start: 10-05-2024 Start: 03-03-2018 End: 03-06-2021 calcium carbonate 1500 mg or al tablet (13 sources) Start: 07-19-2024 cholecalciferol 0.05 mg oral capsule (20 sources) Vitamin D Start: 12-07-2024 Start: 06-01-2023 End: 02-14-2025 Start: 06-01-2023 End: 07-19-2024 take 1 tablet by mouth once daily Cholecalciferol (Vitamin D3) (Vitamin D3) 25 mcg (1,000 unit) tablet Discontinued 25 ug PO DAILY 12 12January 20, 2024 4:25pm July 19, 2024 11:14am Start: 02-15-2022 End: 04-16-2023 Start: 02-15-2022 End: 04-16-2023 take 1 tablet by mouth once daily Cholecalciferol (Vitamin D3) (Vitamin D3) 25 mcg (1,000 unit) tablet Discontinued 25 ug PO DAILY 30 July 14, 2022 5:50pm November 18, 2022 8:56pm Start: 12-29-2017 End: 11-16-2018 Comment on above: OTC diclofenac sodium 0.01 mg/mg topical gel (9 sources) Nonsteroidal Anti-inflammatory Drug Start: 12-07-2024 Start: [...] ( 0.06 %) nasal spray ; 2 Matthews up to three times daily as needed prn allergic rhinitis for 30 days Quantity: 15 {Milliliter} Refills: 11 Ordered: 13-Nov-2022 CAMDEN Thurman Start: 07-Apr-2022 End: 13-Nov-2022 Status: Inactive Comments: Medication taken as needed. Start: 05-08-2021 End: 07-10-2022 Start: 05-08-2021 End: 07-10-2022 Ipratropium [place] 42 mcg ( 0.06 %) spray,non-aerosol Discontinued 2 NMA INTRANASAL THREE TIMES A DAY as needed for allergy symptoms 29 06May 08, 2021 1:00am July 10, 2022 12:25pm administer into each nostril Start: 05-08-2021 End: 07-10-2022 take 1 spray(s) nasal route three times daily Ipratropium [place] Discontinued 2 SPRAY INTRANASAL THREE TIMES A DAY May 08, 2021 12:00am July 10, 2022 11:25am administer into each nostril Comment on above: Medication taken as needed. levoFLOXacin 250 mg oral tab let (16 sources) Quinolone Antimicrobial Start: 02-19-2025 Start: 06-14-2024 [...] / methyl salicylate 150 mg/ml topical cream (9 sources) Start: 12-07-2024 Start: 12-07-2024 Methyl Salicyl [...] Start: 30-Jun-2022 Nut Tx, Lact-Reduced, Iron (Boost c) 0.09-2.25 gram-kcal/mL liquid (9 sources) Start: 07-19-2024 [...] / clavula tyrone 125 mg oral tablet (15 sources) Penicillin-class Antibacterial Start: 08-17-2023 End: 01-20-2024 Start: 08-17-2023 End: 01-20-2024 Amoxicillin-Pot Clavulanate 875-125 mg tablet Discontinued 1 {tbl} PO TWICE A DAY 14 0 August 17, 2023 1:00am January 20, 2024 4:21pm Start: 08-17-2023 take 1 tablet by hao th twice daily Amoxicillin-Pot Clavulanate Active 1 TABLET PO TWICE A DAY August 17, 2023 12:00am aspirin 325 mg oral tablet (20 sources) Platelet Aggregation Inhibitor, Nonsteroidal Anti-inflammatory Drug Start: 03-06-2021 End: 09-26-2021 azelastine hydrochloride 0.137 mg/actuat metered dose nasal spray (20 sources) Histamine-1 Receptor Antagonist Start: 04-07-2022 End: 11-13-2022 azelastine 137 mcg (0.1 %) nasal spray aerosol ; 2 sprays Matthews every 12 hours as needed for rhinitis [...] Supplement cephalexin 500 mg oral capsu le (13 sources) Cephalosporin Antibacterial Start: 05-30-2024 End: 06-07-2024 [...] mc g/actuation nasal spray,suspension ; 1 spray Matthews daily as needed for allergic rhinitis for [...] 10 m g oral tablet (20 sources) P-gnsgev-Y-aspartate Receptor Antagonist Start: 02-11-2022 End: 01-20-2024 Start: [...] will call en prescription refill is needed. menthol 0.0044 mg/mg / zinc oxide 0.206 mg/mg topical ointment (15 sources) Start: 04-23-2023 End: 07-19-2024 Start: 04-23-2023 End: 07-19-2024 Menthol-Zinc Oxide (Calmosep [...] 12:17pm Comment on above: Patient will call wh en prescription refill is needed. nitrofurantoin, macrocrystal s 25 mg / nitrofurantoin, monohydrate 75 mg oral capsule (17 sources) Nitrofuran Antibacterial Start: 04-05-2023 End: 04-12-2023 [...] mouth three times daily Sod Phos Di, [place]-K Phos [place] (S-Hywm-Wsmhydx) 250 mg tablet Discontinued 2 TABLET PO [...] Discontinued 0.5 mg PO EVERY EVENING 30 February 23, 2018 8:26am November 16, 2018 [...] oral tablet (20 sources) Opioid Agonist Start: 02-11-2022 End: 03-07-2025 Start: 02-11-2022 End: 2025 Start: 02-11-2022 End: 12-22-2024 Start: 02-11-2022 End: 07-12-2024 take 1 tablet by mouth every eight hours as needed for pain Tramadol 50 mg tablet Discontinued 50 mg PO Q8H as needed for Pain 30 20 0 July 07, 2024 1:03pm July 26, 2024 1:00am July 12, 2024 1:25pm Moved to [facility] [address]. Comment on above: This prescription ex whit 89 days from date of issue. traZODone hydrochloride 100 mg oral tablet (20 sources) Serotonin Reuptake Inhibitor Start: 01-15-2018 End: 11-16-2018 Start: 01-15-2018 End: 11-16-2018 take 1 tablet by mouth at bedtime Trazodone 100 mg tablet Discontinued 100 mg PO AT BEDTIME 30 February 23, 2018 8:26am November 16, 2018 11:31am triamcinolone acetonide 0.00 1 mg/mg topical ointment (20 sources) Corticosteroid Start: 05-30-2021 End: 07-10-2022 Start: 05-30-2021 End: 07-10-2022 Triamcinolone Acetonide 0.1 % ointment Discontinued 1 NMA TOPICAL DAILY 30 May 30, 2021 1:00am December 13, 2021 4:21pm Triamcinolone Ac etonide 0.1 % External Cream ; 1 application daily as needed for dermatitis (0.1 %) Comments: Medication taken as needed. Comment on above: Medication taken as needed. (10 sources) Start: 07-19-2024 End: 02-14-2025 Start: 07-19-2024 Start: 04-23-2023 End: 07-19-2024 Start: 04-23-2023 End: 06-07-2024 Problems Active Problems Problem Classification Problem Date Documented Da te Episodic/Chronic Acute and unspecified renal failure (18 sources) Prerenal azotemia; Translations: [Unspecified kidney failure] [...] Onset: Episodic Genitourinary symptoms and ill-defined conditions (17 sources) Dysuria; Translations: [Dysuria] 04-05-2023 Episodic Immunizations [...] deficiency; Translations: [Vitamin D deficiency, unspecified] Onset: Chronic Osteoarthritis (20 sources) Osteoarthritis of bilateral [...] level monitoring] 04-07-2022 Episodic Other circulatory disease (18 sources) Orthostatic hypotension; Translations: [Orthostatic hypotension] 02-23-2022 [...] leg] Onset: Episodic Other connective tissue disease (2 sources) [...] syndrome (RLS)] Chronic Other lower respiratory disease (15 sources) Cough; Translations: [Cough] 08-15-2023 Episodic Other lower respiratory disease (13 sources) Single lobe lung infiltrate; Translations: [Other nonspecific abnormal finding of lung field] 06-07-2024 Episodic Other nervous system disorders (20 sources) Disorder of brain; 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, unspecified] 12-21-2021 Chronic Other nervous system disorders (8 sources) Encephalopathy, unspecified; 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, unspecified] Chronic Other nervous system disorders (9 sources) Neuropathy; Translations: [Polyneuropathy, unspecified] 12-07-2024 Chronic [...] [Pain in left wrist] 10-14-2018 Episodic Other non-traumatic joint disorders (2 sources) Pain of left wrist; Translations: [Pain in left wrist] 10-14-2018 [...] caused by tuberculosis or sexually transmitted disease) (10 sources) Community acquired pneumonia; Translations: [Pneumonia, unspecified organism] Onset: 02-14-2025 Episodic Residual codes; unclassified (20 sources) Insomnia; Translations: [Insomnia, unspecified] 12-14-2021 Episodic Residual codes; unclassified (3 sources) Insomnia, unspecified; Translations: [Insomnia, unspecified] Episodic Residual codes; unclassified (15 sources) Confusional state; Translations: [Disorientation, unspecified] 08-13-2023 Episodic Residual codes; unclassified (13 sources) Altered mental status; Translations: [Altered mental status, unspecified] 06-07-2024 Episodic Screening and history of mental health and substance abuse codes (13 sources) H/O: dementia; Translations: [Personal history of other mental and behavioral disorders] 06-07-2024 Episodic Spondylosis; intervertebral disc disorders; other back problems (20 sources) Low back pain; Translations: [Low back pain] Episodic Syncope (18 sources) Syncope and collapse; Translations: [Syncope and collapse] 02-23-2022 Episodic Urinary tract infections (20 sources) Acute urinary tract infection; Translations: [Urinary tract infection, site not specified] Episodic Viral infection (13 sources) Disease caused by 2019-nCoV; Translations: [COVID-19] [...] to further discuss the symptoms with the hand sign writer.). You should call our office if you [...] Test Name Value Interpretation Reference Range Facility Absolute lymphocyte countOrd ered By: Genevieve Wu on 03-07-2025 Lymphocytes Auto (Unsp spec) [#/Vol] 2.20 10*3/uL 0.83-4.51 [facility] Anion gap in Serum or Plasma Ordered By: Genevieve Wu on 03-07-2025 Anion gap [Moles/Vol] 12 mmol/L 5-15 [facility] Automated lymphocyte count a s percentage of total leukocytesOrdered By: Genevieve Wu on 03-07-2025 Lymphocytes/100 WBC Auto (Unsp spec) 28.3 % 19-41 [facility] BUN/creatinine ratioOrdered By: Genevieve Wu on 03-07-2025 Urea nitrogen/Creatinine [Mass ratio] 13.7 mg/mg 10-20 [facility] Basophil percentageOrdered B y: Genevieve Wu on 03-07-2025 Basophils/100 WBC (Bld) 0.5 % 0-1 [facility] Carbon dioxide, total [Moles /volume] in Central venous bloodOrdered By: haseeb Wu on 03-07-2025 CO2 [Moles/Vol] 26.6 mmol/L 21.0-32.0 [facility] Chloride assayOrdered By: Abe ashsharon Wu on 03-07-2025 Chloride [Moles/Vol] 99 mmol/L 98-108 [facility] Eosinophil percentageOrdered By: haseeb Wu on 03-07-2025 Eosinophils/100 WBC (Bld) 2.4 % 0-5 [facility] Erythrocyte distribution wid th ratioOrdered By: Genevieve Wu on 03-07-2025 Erythrocyte distribution width (RBC) [Ratio] 15.2 % High 11.6-14.6 [facility] Erythrocyte distribution wid th standard deviationOrdered By: Genevieve Wu on 03-07-2025 Erythrocyte distribution width (RBC) [Ratio] 51.2 fl High 35.1-43.9 [facility] Glomerular filtration rate ( GFR) estimation/1.73 sq m using serum, plasma, or whole bOrdered By: Genevieve Wu on 03-07-2025 GFR/1.73 sq M.predicted among non-blacks MDRD (S/P/Bld) [Vol rate/Area] 59 mL/min/{1.73_m2} Low >60 [facility] Hematocrit Auto (Bld) [Volum e fraction]Ordered By: Genevieve Galavizdrew on 03-07-2025 Hematocrit (Bld) [Volume fraction] 39.0 % 37-47 [facility] Hemoglobin measurementOrdere d By: Genevieve Wu on 03-07-2025 Hemoglobin (Bld) [Mass/Vol] 12.1 g/dL 12.0-15.0 [facility] Immature granulocytes/100 WB C Auto (Bld)Ordered By: Genevieve Wu on 03-07-2025 Immature granulocytes/100 WBC (Bld) 0.400 % 0.0-0.9 [facility] MCV (mean corpuscular volume ) determinationOrdered By: Genevieve Waynechey on 03-07-2025 MCV (RBC) [Entitic vol] 91.8 fL 81-99 [facility] Mean corpuscular hemoglobin (MCH) determinationOrdered By: mihirphoenixsharon Wu on 03-07-2025 MCH (RBC) [Entitic mass] 28.5 pg 27.0-32.0 [facility] Monocyte percentageOrdered B y: Genevieve Wu on 03-07-2025 Monocytes/100 WBC (Bld) 12.0 % High 0-10 [facility] Neutrophil percentageOrdered By: Genevieve Wu on 03-07-2025 Neutrophils/100 WBC (Bld) 56.4 % 47-70 [facility] Platelet countOrdered By: Abe Wu on 03-07-2025 Platelets (Bld) [#/Vol] 452 10*3/uL High 150-450 [facility] Potassium measurement (mass/ volume)Ordered By: Genevieve Wu on 03-07-2025 Potassium (Unsp spec) [Mass/Vol] 3.7 mmol/L 3.3-5.1 [facility] RBC Auto (Bld) [#/Vol]Ordere d By: Genevieve Wu on 03-07-2025 RBC (Bld) [#/Vol] 4.25 10*6/uL 4.2-5.4 [facility] Serum creatinine measurement (mass/volume)Ordered By: Genevieve Galavizdrew on 03-07-2025 Creatinine [Mass/Vol] 0.95 mg/dL 0.70-1.20 [facility] Serum glucose measurement (m ass/volume)Ordered By: Abemihirkarleysharon Blackjuanitadrew on 03-07-2025 Glucose [Mass/Vol] 82 mg/dL 70-99 [facility] Serum or plasma calcium candice urement (mass/volume)Ordered By: Genevieve Wu on 03-07-2025 Calcium [Mass/Vol] 9.7 mg/dL 7.6-11.0 [facility] Serum or plasma urea nitroge n measurement (mass/volume)Ordered By: Genevieve Galavizdrew on 03-07-2025 Urea nitrogen [Mass/Vol] 13 mg/dL 4-19 [facility] Sodium levelOrdered By: Gerardo Wu on 03-07-2025 Sodium [Moles/Vol] 138 mmol/L 133-145 [facility] White blood cell (WBC) count Ordered By: Genevieve Wu on 03-07-2025 WBC (Bld) [#/Vol] 7.8 10*3/uL 4.4-11.0 [facility] Absolute lymphocyte countOrd ered By: Abemihirdion Wu on 02-27-2025 Lymphocytes Auto (Unsp spec) [#/Vol] 1.81 10*3/uL 0.83-4.51 [facility] Anion gap in Serum or Plasma Ordered By: Genevieve Wu on 02-27-2025 Anion gap [Moles/Vol] 13 mmol/L 5-15 [facility] Automated lymphocyte count a s percentage of total leukocytesOrdered By: Genevieve Wu on 02-27-2025 Lymphocytes/100 WBC Auto (Unsp spec) 24.8 % 19-41 [facility] BUN/creatinine ratioOrdered By: Genevieve Wu on 02-27-2025 Urea nitrogen/Creatinine [Mass ratio] 12.0 mg/mg 10-20 [facility] Basophil percentageOrdered B y: Genevieve Wu on 02-27-2025 Basophils/100 WBC (Bld) 0.5 % 0-1 [facility] Bilirubin directOrdered By: Genevieve Wu on 02-27-2025 Bilirubin.direct [Mass/Vol] 0.11 mg/dL 0.00-0.30 [facility] Bilirubin, totalOrdered By: Genevieve Wu on 02-27-2025 Bilirubin [Mass/Vol] 0.24 mg/dL 0.00-1.30 [facility] Calculated very low density lipoprotein (VLDL) cholesterol measurementOrdered By: Genevieve Wu on 02-27-2025 Calculated very low density lipoprotein (VLDL) cholesterol measurement 15 mg/dL 5-40 [facility] Carbon dioxide, total [Moles /volume] in Central venous bloodOrdered By: Genevieve Wu on 02-27-2025 CO2 [Moles/Vol] 22.7 mmol/L 21.0-32.0 [facility] Chloride assayOrdered By: Abe Wu on 02-27-2025 Chloride [Moles/Vol] 107 mmol/L 98-108 [facility] Eosinophil percentageOrdered By: Genevieve Wu on 02-27-2025 Eosinophils/100 WBC (Bld) 2.5 % 0-5 [facility] Erythrocyte distribution wid th ratioOrdered By: Genevieve Wu on 02-27-2025 Erythrocyte distribution width (RBC) [Ratio] 15.6 % High 11.6-14.6 [facility] Erythrocyte distribution wid th standard deviationOrdered By: Genevieve Wu on 02-27-2025 Erythrocyte distribution width (RBC) [Ratio] 53.2 fl High 35.1-43.9 [facility] Glomerular filtration rate ( GFR) estimation/1.73 sq m using serum, plasma, or whole bOrdered By: Genevieve Wu on 02-27-2025 GFR/1.73 sq M.predicted among non-blacks MDRD (S/P/Bld) [Vol rate/Area] 58 mL/min/{1.73_m2} Low >60 [facility] Hematocrit Auto (Bld) [Volum e fraction]Ordered By: Genevieve Wu on 02-27-2025 Hematocrit (Bld) [Volume fraction] 33.0 % Low 37-47 [facility] Hemoglobin measurementOrdere d By: Genevieve Wu on 02-27-2025 Hemoglobin (Bld) [Mass/Vol] 10.1 g/dL Low 12.0-15.0 [facility] Immature granulocytes/100 WB C Auto (Bld)Ordered By: Genevieve Wu on 02-27-2025 Immature granulocytes/100 WBC (Bld) 0.700 % 0.0-0.9 [facility] LDL calc ser/plasOrdered By: Genevieve Wu on 02-27-2025 Cholesterol in LDL [Mass/Vol] 103 mg/dL [facility] MCV (mean corpuscular volume ) determinationOrdered By: mihirphoenixsharon Wu on 02-27-2025 MCV (RBC) [Entitic vol] 93.5 fL 81-99 [facility] Mean corpuscular hemoglobin (MCH) determinationOrdered By: haseeb Wu on 02-27-2025 MCH (RBC) [Entitic mass] 28.6 pg 27.0-32.0 [facility] Monocyte percentageOrdered B y: Genevieve Wu on 02-27-2025 Monocytes/100 WBC (Bld) 10.6 % High 0-10 [facility] Neutrophil percentageOrdered By: haseeb Wu on 02-27-2025 Neutrophils/100 WBC (Bld) 60.9 % 47-70 [facility] No Panel InformationOrdered By: Genevieve Wu on 02-27-2025 23 U/L <32 [facility] Platelet countOrdered By: Abe Wu on 02-27-2025 Platelets (Bld) [#/Vol] 364 10*3/uL 150-450 [facility] Potassium measurement (mass/ volume)Ordered By: Genevieve Wu on 02-27-2025 Potassium (Unsp spec) [Mass/Vol] 3.7 mmol/L 3.3-5.1 [facility] RBC Auto (Bld) [#/Vol]Ordere d By: Genevieve Wu on 02-27-2025 RBC (Bld) [#/Vol] 3.53 10*6/uL Low 4.2-5.4 [facility] Serum creatinine measurement (mass/volume)Ordered By: Genevieve Wu on 02-27-2025 Creatinine [Mass/Vol] 0.97 mg/dL 0.70-1.20 [facility] Serum globulin measurementOr dered By: Genevieve Wu on 02-27-2025 Globulin (S) [Mass/Vol] 2.7 g/dL 2.2-4.2 [facility] Serum glucose measurement (m ass/volume)Ordered By: Genevieve Wu on 02-27-2025 Glucose [Mass/Vol] 121 mg/dL High 70-99 [facility] Serum or plasma alanine carpio otransferase (ALT) measurementOrdered By: Genevieve Wu on 02-27-2025 ALT [Catalytic activity/Vol] 13 U/L <35 [facility] Serum or plasma albumin candice urement (mass/volume)Ordered By: Genevieve Wu on 02-27-2025 Albumin [Mass/Vol] 3.3 g/dL Low 3.4-4.8 [facility] Serum or plasma alkaline anthony sphatase measurementOrdered By: Genevieve Wu 02-27-2025 ALP [Catalytic activity/Vol] 106 U/L High 35-104 [facility] Serum or plasma calcium candice urement (mass/volume)Ordered By: Genevieve Wu on 02-27-2025 Calcium [Mass/Vol] 8.6 mg/dL 7.6-11.0 [facility] Serum or plasma cholesterol in HDL measurement (mass/volume)Ordered By: Genevieve Wu on 02-27-2025 Cholesterol in HDL [Mass/Vol] 38 mg/dL Low >40 [facility] Serum or plasma cholesterol measurement (mass/volume)Ordered By: Genevieve Wu on 02-27-2025 Cholesterol [Mass/Vol] 156 mg/dL <201 [facility] Serum or plasma urea nitroge n measurement (mass/volume)Ordered By: Genevieve Wu on 02-27-2025 Urea nitrogen [Mass/Vol] 12 mg/dL - [facility] Sodium levelOrdered By: Gerardo Wu on 02-27-2025 Sodium [Moles/Vol] 142 mmol/L 133-145 [facility] Total proteinOrdered By: Garry Wu on 02-27-2025 Protein [Mass/Vol] 6.0 g/dL 5.9-8.4 [facility] White blood cell (WBC) count Ordered By: Genevieve Wu on 02-27-2025 WBC (Bld) [#/Vol] 7.3 10*3/uL 4.4-11.0 [facility] Basic Metabolic Profile (BMP )on 02-23-2025 BUN Normal - [facility] Comment on above: Result Comment: Canc elled via OM: Order cancelled - Patient discharged Performed By: #### L 500.2500, L100.0100 ####[facility] [address] [place], [address] BUN/CRE Normal 10-20 [facility] Comment on above: Result Comment: Canc elled via OM: Order cancelled - Patient discharged Performed By: #### L 500.2500, L100.0100 ####[facility] [address] [place], [address] Calcium Normal 7.6-11.0 [facility] Comment on above: Result Comment: Canc elled via OM: Order cancelled - Patient discharged Performed By: #### L 500.2500, L100.0100 ####[facility] [address] [place], [address] CL Normal 98-108 [facility] Comment on above: Result Comment: Canc elled via OM: Order cancelled - Patient discharged Performed By: #### L 500.2500, L100.0100 ####[facility] [address] [place], [address] CO2 Normal 21.0-32.0 [facility] Comment on above: Result Comment: Canc elled via OM: Order cancelled - Patient discharged Performed By: #### L 500.2500, L100.0100 ####[facility] [address] [place], [address] CREAT,SERUM Normal 0.70-1.20 [facility] Comment on above: Result Comment: Canc elled via OM: Order cancelled - Patient discharged Performed By: #### L 500.2500, L100.0100 ####[facility] [address] [place], [address] eGFR Normal >60 [facility] Comment on above: Result Comment: Canc elled via OM: Order cancelled - Patient discharged Performed By: #### L 500.2500, L100.0100 ####[facility] [address] [place], [address] GAP Normal 5-15 [facility] Comment on above: Result Comment: Canc elled via OM: Order cancelled - Patient discharged Performed By: #### L 500.2500, L100.0100 ####[facility] [address] [place], [address] GLU Normal 70-99 [facility] Comment on above: Result Comment: Canc elled via OM: Order cancelled - Patient discharged Performed By: #### L 500.2500, L100.0100 ####[facility] [address] [place], [address] Potassium Normal 3.3-5.1 [facility] Comment on above: Result Comment: Canc elled via OM: Order cancelled - Patient discharged Performed By: #### L 500.2500, L100.0100 ####[facility] [address] [place], [address] Basic Metabolic Profile (BMP) Normal 133-145 [facility] Comment on above: Result Comment: Canc elled via OM: Order cancelled - Patient discharged Performed By: #### L 500.2500, L100.0100 ####[facility] [address] [place], [address] CBC W/Diff, Automatedon 09-1 Absolute Neut Normal 2.0-7.7 [facility] Comment on above: Result Comment: Canc elled via OM: Order cancelled - Patient discharged Performed By: #### L 500.2500, L100.0100 ####[facility] [address] [place], [address] HCT Normal 37-47 [facility] Comment on above: Result Comment: Canc elled via OM: Order cancelled - Patient discharged Performed By: #### L 500.2500, L100.0100 ####[facility] [address] [place], [address] HGB Normal 12.0-15.0 [facility] Comment on above: Result Comment: Canc elled via OM: Order cancelled - Patient discharged Performed By: #### L 500.2500, L100.0100 ####[facility] [address] [place], [address] MCH Normal 27.0-32.0 [facility] Comment on above: Result Comment: Canc elled via OM: Order cancelled - Patient discharged Performed By: #### L 500.2500, L100.0100 ####[facility] [address] [place], [address] MCHC Normal 32-36 [facility] Comment on above: Result Comment: Canc elled via OM: Order cancelled - Patient discharged Performed By: #### L 500.2500, L100.0100 ####[facility] [address] [place], [address] MCV Normal 81-99 [facility] Comment on above: Result Comment: Canc elled via OM: Order cancelled - Patient discharged Performed By: #### L 500.2500, L100.0100 ####[facility] [address] [place], [address] NEUT% Normal 47-70 [facility] Comment on above: Result Comment: Canc elled via OM: Order cancelled - Patient discharged Performed By: #### L 500.2500, L100.0100 ####[facility] [address] [place], [address] PLT Normal 150-450 [facility] Comment on above: Result Comment: Canc elled via OM: Order cancelled - Patient discharged Performed By: #### L 500.2500, L100.0100 ####[facility] [address] [place], [address] RBC Normal 4.2-5.4 [facility] Comment on above: Result Comment: Canc elled via OM: Order cancelled - Patient discharged Performed By: #### L 500.2500, L100.0100 ####[facility] [address] [place], [address] RDW CV Normal 11.6-14.6 [facility] Comment on above: Result Comment: Canc elled via OM: Order cancelled - Patient discharged Performed By: #### L 500.2500, L100.0100 ####[facility] [address] [place], [address] RDW SD Normal 35.1-43.9 [facility] Comment on above: Result Comment: Canc elled via OM: Order cancelled - Patient discharged Performed By: #### L 500.2500, L100.0100 ####[facility] [address] [place], [address] WBC Normal 4.4-11.0 [facility] Comment on above: Result Comment: Canc elled via OM: Order cancelled - Patient discharged Performed By: #### L 500.2500, L100.0100 ####[facility] [address] [place], [address] Basic Metabolic Profile (BMP )on 02-22-2025 BUN Normal 4-19 [facility] Comment on above: Result Comment: Canc elled via OM: Order cancelled - Patient discharged Performed By: #### L 100.0100, L500.2500 ####[facility] [address] [place], [address] BUN/CRE Normal 10-20 [facility] Comment on above: Result Comment: Canc elled via OM: Order cancelled - Patient discharged Performed By: #### L 100.0100, L500.2500 ####[facility] [address] [place], [address] Calcium Normal 7.6-11.0 [facility] Comment on above: Result Comment: Canc elled via OM: Order cancelled - Patient discharged Performed By: #### L 100.0100, L500.2500 ####[facility] [address] [place], [address] CL Normal 98-108 [facility] Comment on above: Result Comment: Canc elled via OM: Order cancelled - Patient discharged Performed By: #### L 100.0100, L500.2500 ####[facility] [address] [place], [address] CO2 Normal 21.0-32.0 [facility] Comment on above: Result Comment: Canc elled via OM: Order cancelled - Patient discharged Performed By: #### L 100.0100, L500.2500 ####[facility] [address] [place], [address] CREAT,SERUM Normal 0.70-1.20 [facility] Comment on above: Result Comment: Canc elled via OM: Order cancelled - Patient discharged Performed By: #### L 100.0100, L500.2500 ####[facility] [address] [place], [address] eGFR Normal >60 [facility] Comment on above: Result Comment: Canc elled via OM: Order cancelled - Patient discharged Performed By: #### L 100.0100, L500.2500 ####[facility] [address] [place], [address] GAP Normal 5-15 [facility] Comment on above: Result Comment: Canc elled via OM: Order cancelled - Patient discharged Performed By: #### L 100.0100, L500.2500 ####[facility] [address] [place], [address] GLU Normal 70-99 [facility] Comment on above: Result Comment: Canc elled via OM: Order cancelled - Patient discharged Performed By: #### L 100.0100, L500.2500 ####[facility] [address] [place], [address] Potassium Normal 3.3-5.1 [facility] Comment on above: Result Comment: Canc elled via OM: Order cancelled - Patient discharged Performed By: #### L 100.0100, L500.2500 ####[facility] [address] [place], [address] Basic Metabolic Profile (BMP) Normal 133-145 [facility] Comment on above: Result Comment: Canc elled via OM: Order cancelled - Patient discharged Performed By: #### L 100.0100, L500.2500 ####[facility] [address] [place], [address] CBC W/Diff, Automatedon 09-1 0-2024 Absolute Neut Normal 2.0-7.7 [facility] Comment on above: Result Comment: Canc elled via OM: Order cancelled - Patient discharged Performed By: #### L 100.0100, L500.2500 ####[facility] [address] [place], [address] HCT Normal 37-47 [facility] Comment on above: Result Comment: Canc elled via OM: Order cancelled - Patient discharged Performed By: #### L 100.0100, L500.2500 ####[facility] [address] [place], [address] HGB Normal 12.0-15.0 [facility] Comment on above: Result Comment: Canc elled via OM: Order cancelled - Patient discharged Performed By: #### L 100.0100, L500.2500 ####[facility] [address] [place], [address] MCH Normal 27.0-32.0 [facility] Comment on above: Result Comment: Canc elled via OM: Order cancelled - Patient discharged Performed By: #### L 100.0100, L500.2500 ####[facility] [address] [place], [address] MCHC Normal 32-36 [facility] Comment on above: Result Comment: Canc elled via OM: Order cancelled - Patient discharged Performed By: #### L 100.0100, L500.2500 ####[facility] [address] [place], [address] MCV Normal 81-99 [facility] Comment on above: Result Comment: Canc elled via OM: Order cancelled - Patient discharged Performed By: #### L 100.0100, L500.2500 ####[facility] [address] [place], [address] NEUT% Normal 47-70 [facility] Comment on above: Result Comment: Canc elled via OM: Order cancelled - Patient discharged Performed By: #### L 100.0100, L500.2500 ####[facility] [address] [place], [address] PLT Normal 150-450 [facility] Comment on above: Result Comment: Canc elled via OM: Order cancelled - Patient discharged Performed By: #### L 100.0100, L500.2500 ####[facility] [address] [place], [address] RBC Normal 4.2-5.4 [facility] Comment on above: Result Comment: Canc elled via OM: Order cancelled - Patient discharged Performed By: #### L 100.0100, L500.2500 ####[facility] [address] [place], [address] RDW CV Normal 11.6-14.6 [facility] Comment on above: Result Comment: Canc elled via OM: Order cancelled - Patient discharged Performed By: #### L 100.0100, L500.2500 ####[facility] [address] [place], [address] RDW SD Normal 35.1-43.9 [facility] Comment on above: Result Comment: Canc elled via OM: Order cancelled - Patient discharged Performed By: #### L 100.0100, L500.2500 ####[facility] [address] [place], [address] WBC Normal 4.4-11.0 [facility] Comment on above: Result Comment: Canc elled via OM: Order cancelled - Patient discharged Performed By: #### L 100.0100, L500.2500 ####[facility] [address] [place], [address] Absolute lymphocyte countOrd ered By: Genevieve Wu on 02-21-2025 Lymphocytes Auto (Unsp spec) [#/Vol] 1.74 10*3/uL 0.83-4.51 [facility] Anion gap in Serum or Plasma Ordered By: Genevieve Wu on 02-21-2025 Anion gap [Moles/Vol] 14 mmol/L 5-15 [facility] Automated lymphocyte count a s percentage of total leukocytesOrdered By: Abemihirkarleysharon Wu on 02-21-2025 Lymphocytes/100 WBC Auto (Unsp spec) 21.8 % 19-41 [facility] BUN/creatinine ratioOrdered By: Abemihirkarleysharon Wu on 02-21-2025 Urea nitrogen/Creatinine [Mass ratio] 24.3 mg/mg High 10-20 [facility] Basic Metabolic Profile (BMP )on 02-21-2025 BUN Normal 4-19 [facility] Comment on above: Result Comment: Canc elled via OM: Order cancelled - Patient discharged Performed By: #### L 500.2500, L100.0100 ####[facility] [address] [place], [address] BUN/CRE Normal 10-20 [facility] Comment on above: Result Comment: Canc elled via OM: Order cancelled - Patient discharged Performed By: #### L 500.2500, L100.0100 ####[facility] [address] [place], [address] Calcium Normal 7.6-11.0 [facility] Comment on above: Result Comment: Canc elled via OM: Order cancelled - Patient discharged Performed By: #### L 500.2500, L100.0100 ####[facility] [address] [place], [address] CL Normal 98-108 [facility] Comment on above: Result Comment: Canc elled via OM: Order cancelled - Patient discharged Performed By: #### L 500.2500, L100.0100 ####[facility] [address] [place], [address] CO2 Normal 21.0-32.0 [facility] Comment on above: Result Comment: Canc elled via OM: Order cancelled - Patient discharged Performed By: #### L 500.2500, L100.0100 ####[facility] [address] [place], [address] CREAT,SERUM Normal 0.70-1.20 [facility] Comment on above: Result Comment: Canc elled via OM: Order cancelled - Patient discharged Performed By: #### L 500.2500, L100.0100 ####[facility] [address] [place], [address] eGFR Normal >60 [facility] Comment on above: Result Comment: Canc elled via OM: Order cancelled - Patient discharged Performed By: #### L 500.2500, L100.0100 ####[facility] [address] [place], [address] GAP Normal 5-15 [facility] Comment on above: Result Comment: Canc elled via OM: Order cancelled - Patient discharged Performed By: #### L 500.2500, L100.0100 ####[facility] [address] [place], [address] GLU Normal 70-99 [facility] Comment on above: Result Comment: Canc elled via OM: Order cancelled - Patient discharged Performed By: #### L 500.2500, L100.0100 ####[facility] [address] [place], [address] Potassium Normal 3.3-5.1 [facility] Comment on above: Result Comment: Canc elled via OM: Order cancelled - Patient discharged Performed By: #### L 500.2500, L100.0100 ####[facility] [address] [place], [address] Basic Metabolic Profile (BMP) Normal 133-145 [facility] Comment on above: Result Comment: Canc elled via OM: Order cancelled - Patient discharged Performed By: #### L 500.2500, L100.0100 ####[facility] [address] [place], [address] Basophil percentageOrdered B y: Genevieve Wu on 02-21-2025 Basophils/100 WBC (Bld) 0.5 % 0-1 [facility] CBC W/Diff, Automatedon 09-0 -2024 Absolute Neut Normal 2.0-7.7 [facility] Comment on above: Result Comment: Canc elled via OM: Order cancelled - Patient discharged Performed By: #### L 500.2500, L100.0100 ####[facility] [address] [place], [address] HCT Normal 37-47 [facility] Comment on above: Result Comment: Canc elled via OM: Order cancelled - Patient discharged Performed By: #### L 500.2500, L100.0100 ####[facility] [address] [place], [address] HGB Normal 12.0-15.0 [facility] Comment on above: Result Comment: Canc elled via OM: Order cancelled - Patient discharged Performed By: #### L 500.2500, L100.0100 ####[facility] [address] [place], [address] MCH Normal 27.0-32.0 [facility] Comment on above: Result Comment: Canc elled via OM: Order cancelled - Patient discharged Performed By: #### L 500.2500, L100.0100 ####[facility] [address] [place], [address] MCHC Normal 32-36 [facility] Comment on above: Result Comment: Canc elled via OM: Order cancelled - Patient discharged Performed By: #### L 500.2500, L100.0100 ####[facility] [address] [place], [address] MCV Normal 81-99 [facility] Comment on above: Result Comment: Canc elled via OM: Order cancelled - Patient discharged Performed By: #### L 500.2500, L100.0100 ####[facility] [address] [place], [address] NEUT% Normal 47-70 [facility] Comment on above: Result Comment: Canc elled via OM: Order cancelled - Patient discharged Performed By: #### L 500.2500, L100.0100 ####[facility] [address] [place], [address] PLT Normal 150-450 [facility] Comment on above: Result Comment: Canc elled via OM: Order cancelled - Patient discharged Performed By: #### L 500.2500, L100.0100 ####[facility] [address] [place], [address] RBC Normal 4.2-5.4 [facility] Comment on above: Result Comment: Canc elled via OM: Order cancelled - Patient discharged Performed By: #### L 500.2500, L100.0100 ####[facility] [address] [place], [address] RDW CV Normal 11.6-14.6 [facility] Comment on above: Result Comment: Canc elled via OM: Order cancelled - Patient discharged Performed By: #### L 500.2500, L100.0100 ####[facility] [address] [place], [address] RDW SD Normal 35.1-43.9 [facility] Comment on above: Result Comment: Canc elled via OM: Order cancelled - Patient discharged Performed By: #### L 500.2500, L100.0100 ####[facility] [address] [place], [address] WBC Normal 4.4-11.0 [facility] Comment on above: Result Comment: Canc elled via OM: Order cancelled - Patient discharged Performed By: #### L 500.2500, L100.0100 ####[facility] [address] [place], [address] Carbon dioxide, total [Moles /volume] in Central venous bloodOrdered By: Genevieve Wu on 02-21-2025 CO2 [Moles/Vol] 20.9 mmol/L Low 21.0-32.0 [facility] Chloride assayOrdered By: Abe Wu on 02-21-2025 Chloride [Moles/Vol] 104 mmol/L 98-108 [facility] Eosinophil percentageOrdered By: Genevieve Wu 02-21-2025 Eosinophils/100 WBC (Bld) 2.5 % 0-5 [facility] Erythrocyte distribution wid th ratioOrdered By: mihirphoenixsharon Wu on 02-21-2025 Erythrocyte distribution width (RBC) [Ratio] 15.4 % High 11.6-14.6 [facility] Erythrocyte distribution wid th standard deviationOrdered By: mihirphoenixsharon Wu on 02-21-2025 Erythrocyte distribution width (RBC) [Ratio] 50.3 fl High 35.1-43.9 [facility] Glomerular filtration rate ( GFR) estimation/1.73 sq m using serum, plasma, or whole bOrdered By: Genevieve Wu on 02-21-2025 GFR/1.73 sq M.predicted among non-blacks MDRD (S/P/Bld) [Vol rate/Area] 60 mL/min/{1.73_m2} >60 [facility] Hematocrit Auto (Bld) [Volum e fraction]Ordered By: mihirphoenixsharon Wu 02-21-2025 Hematocrit (Bld) [Volume fraction] 33.6 % Low 37-47 [facility] Hemoglobin measurementOrdere d By: Genevieve Wu on 02-21-2025 Hemoglobin (Bld) [Mass/Vol] 10.6 g/dL Low 12.0-15.0 [facility] Immature granulocytes/100 WB C Auto (Bld)Ordered By: Genevieve Wu on 02-21-2025 Immature granulocytes/100 WBC (Bld) 1.500 % High 0.0-0.9 [facility] MCV (mean corpuscular volume ) determinationOrdered By: Genevieve Wu 02-21-2025 MCV (RBC) [Entitic vol] 89.1 fL 81-99 [facility] Mean corpuscular hemoglobin (MCH) determinationOrdered By: Abeyasminsharon Waynechey on 02-21-2025 MCH (RBC) [Entitic mass] 28.1 pg 27.0-32.0 [facility] Monocyte percentageOrdered B y: Genevieve Wu on 02-21-2025 Monocytes/100 WBC (Bld) 11.4 % High 0-10 [facility] Neutrophil percentageOrdered By: Genevieve Waynechey on 02-21-2025 Neutrophils/100 WBC (Bld) 62.3 % 47-70 [facility] Platelet countOrdered By: Abe membreno Waynechey on 02-21-2025 Platelets (Bld) [#/Vol] 357 10*3/uL 150-450 [facility] Potassium measurement (mass/ volume)Ordered By: Genevieve Wu on 02-21-2025 Potassium (Unsp spec) [Mass/Vol] 3.5 mmol/L 3.3-5.1 [facility] RBC Auto (Bld) [#/Vol]Ordere d By: Genevieve Waynechey on 02-21-2025 RBC (Bld) [#/Vol] 3.77 10*6/uL Low 4.2-5.4 [facility] Serum creatinine measurement (mass/volume)Ordered By: Genevieve Wu on 02-21-2025 Creatinine [Mass/Vol] 0.94 mg/dL 0.70-1.20 [facility] Serum glucose measurement (m ass/volume)Ordered By: Genevieve Wu on 02-21-2025 Glucose [Mass/Vol] 91 mg/dL 70-99 [facility] Serum or plasma calcium candice urement (mass/volume)Ordered By: Genevieve Wu on 02-21-2025 Calcium [Mass/Vol] 9.0 mg/dL 7.6-11.0 [facility] Serum or plasma urea nitroge n measurement (mass/volume)Ordered By: Genevieve Wu on 02-21-2025 Urea nitrogen [Mass/Vol] 23 mg/dL High 4-19 [facility] Sodium levelOrdered By: Gerardo onnick Wu on 02-21-2025 Sodium [Moles/Vol] 138 mmol/L 133-145 [facility] White blood cell (WBC) count Ordered By: Genevieve Wu on 02-21-2025 WBC (Bld) [#/Vol] 8.0 10*3/uL 4.4-11.0 [facility] Basic Metabolic Profile (BMP )on 02-20-2025 BUN Normal 4-19 [facility] Comment on above: Result Comment: Canc elled via OM: Order cancelled - Patient discharged Performed By: #### L 500.2500, L100.0100 ####[facility] [address] [place], [address] BUN/CRE Normal 10-20 [facility] Comment on above: Result Comment: Canc elled via OM: Order cancelled - Patient discharged Performed By: #### L 500.2500, L100.0100 ####[facility] [address] [place], [address] Calcium Normal 7.6-11.0 [facility] Comment on above: Result Comment: Canc elled via OM: Order cancelled - Patient discharged Performed By: #### L 500.2500, L100.0100 ####[facility] [address] [place], [address] CL Normal 98-108 [facility] Comment on above: Result Comment: Canc elled via OM: Order cancelled - Patient discharged Performed By: #### L 500.2500, L100.0100 ####[facility] [address] [place], [address] CO2 Normal 21.0-32.0 [facility] Comment on above: Result Comment: Canc elled via OM: Order cancelled - Patient discharged Performed By: #### L 500.2500, L100.0100 ####[facility] [address] [place], [address] CREAT,SERUM Normal 0.70-1.20 [facility] Comment on above: Result Comment: Canc elled via OM: Order cancelled - Patient discharged Performed By: #### L 500.2500, L100.0100 ####[facility] [address] [place], [address] eGFR Normal >60 [facility] Comment on above: Result Comment: Canc elled via OM: Order cancelled - Patient discharged Performed By: #### L 500.2500, L100.0100 ####[facility] [address] [place], [address] GAP Normal 5-15 [facility] Comment on above: Result Comment: Canc elled via OM: Order cancelled - Patient discharged Performed By: #### L 500.2500, L100.0100 ####[facility] [address] [place], [address] GLU Normal 70-99 [facility] Comment on above: Result Comment: Canc elled via OM: Order cancelled - Patient discharged Performed By: #### L 500.2500, L100.0100 ####[facility] [address] [place], [address] Potassium Normal 3.3-5.1 [facility] Comment on above: Result Comment: Canc elled via OM: Order cancelled - Patient discharged Performed By: #### L 500.2500, L100.0100 ####[facility] [address] [place], [address] Basic Metabolic Profile (BMP) Normal 133-145 [facility] Comment on above: Result Comment: Canc elled via OM: Order cancelled - Patient discharged Performed By: #### L 500.2500, L100.0100 ####[facility] [address] [place], [address] CBC W/Diff, Automatedon 09-0 8-2024 Absolute Neut Normal 2.0-7.7 [facility] Comment on above: Result Comment: Canc elled via OM: Order cancelled - Patient discharged Performed By: #### L 500.2500, L100.0100 ####[facility] [address] [place], [address] HCT Normal 37-47 [facility] Comment on above: Result Comment: Canc elled via OM: Order cancelled - Patient discharged Performed By: #### L 500.2500, L100.0100 ####[facility] [address] [place], [address] HGB Normal 12.0-15.0 [facility] Comment on above: Result Comment: Canc elled via OM: Order cancelled - Patient discharged Performed By: #### L 500.2500, L100.0100 ####[facility] [address] [place], [address] MCH Normal 27.0-32.0 [facility] Comment on above: Result Comment: Canc elled via OM: Order cancelled - Patient discharged Performed By: #### L 500.2500, L100.0100 ####[facility] [address] [place], [address] MCHC Normal 32-36 [facility] Comment on above: Result Comment: Canc elled via OM: Order cancelled - Patient discharged Performed By: #### L 500.2500, L100.0100 ####[facility] [address] [place], [address] MCV Normal 81-99 [facility] Comment on above: Result Comment: Canc elled via OM: Order cancelled - Patient discharged Performed By: #### L 500.2500, L100.0100 ####[facility] [address] [place], [address] NEUT% Normal 47-70 [facility] Comment on above: Result Comment: Canc elled via OM: Order cancelled - Patient discharged Performed By: #### L 500.2500, L100.0100 ####[facility] [address] [place], [address] PLT Normal 150-450 [facility] Comment on above: Result Comment: Canc elled via OM: Order cancelled - Patient discharged Performed By: #### L 500.2500, L100.0100 ####[facility] [address] [place], [address] RBC Normal 4.2-5.4 [facility] Comment on above: Result Comment: Canc elled via OM: Order cancelled - Patient discharged Performed By: #### L 500.2500, L100.0100 ####[facility] [address] [place], [address] RDW CV Normal 11.6-14.6 [facility] Comment on above: Result Comment: Canc elled via OM: Order cancelled - Patient discharged Performed By: #### L 500.2500, L100.0100 ####[facility] [address] [place], [address] RDW SD Normal 35.1-43.9 [facility] Comment on above: Result Comment: Canc elled via OM: Order cancelled - Patient discharged Performed By: #### L 500.2500, L100.0100 ####[facility] [address] [place], [address] WBC Normal 4.4-11.0 [facility] Comment on above: Result Comment: Canc elled via OM: Order cancelled - Patient discharged Performed By: #### L 500.2500, L100.0100 ####[facility] [address] [place], [address] Absolute lymphocyte countOrd ered By: Felicia Paniagua on 02-19-2025 Lymphocytes Auto (Unsp spec) [#/Vol] 1.51 10*3/uL 0.83-4.51 [facility] Anion gap in Serum or Plasma Ordered By: Felicia Paniagua on 02-19-2025 Anion gap [Moles/Vol] 11 mmol/L 5-15 [facility] Automated lymphocyte count a s percentage of total leukocytesOrdered By: Felicia Paniagua on 02-19-2025 Lymphocytes/100 WBC Auto (Unsp spec) 16.5 % Low 19-41 [facility] BUN/creatinine ratioOrdered By: Felicia Paniagua on 02-19-2025 Urea nitrogen/Creatinine [Mass ratio] 26.7 mg/mg High 10-20 [facility] Basic Metabolic Profile (BMP )on 02-19-2025 BUN/CRE 26.7 RATIO High 10-20 [facility] Comment on above: Performed By: #### L 500.2500, L100.0100 ####[facility] [address] [place], [address] Calcium [Mass/Vol] 9.1 mg/dL Normal 7.6-11.0 [facility] Comment on above: Performed By: #### L 500.2500, L100.0100 ####[facility] [address] [place], [address] Chloride [Moles/Vol] 106 mmol/L Normal 98-108 [facility] Comment on above: Performed By: #### L 500.2500, L100.0100 ####[facility] [address] [place], [address] CO2 [Moles/Vol] 23.0 mmol/L Normal 21.0-32.0 [facility] Comment on above: Performed By: #### L 500.2500, L100.0100 ####[facility] [address] [place], [address] Creatinine [Mass/Vol] 0.78 mg/dL Normal 0.70-1.20 [facility] Comment on above: Performed By: #### L 500.2500, L100.0100 ####[facility] [address] [place], [address] ECRCL 45.54 ml/min Low 50-250 [facility] Comment on above: Performed By: #### L 500.2500, L100.0100 ####[facility] [address] [place], [address] GAP 11 Normal 5-15 [facility] Comment on above: Performed By: #### L 500.2500, L100.0100 ####[facility] [address] [place], [address] GFR/1.73 sq M.predicted among non-blacks MDRD (S/P/Bld) [Vol rate/Area] 75 mL/min/{1.73_m2} Normal >60 [facility] Comment on above: Result Comment: mL/m in/1.73m2 CKD-EPI Creatinine Equation (2020) Performed By: #### L 500.2500, L100.0100 ####[facility] [address] [place], [address] Glucose [Mass/Vol] 102 mg/dL High 70-99 [facility] Comment on above: Performed By: #### L 500.2500, L100.0100 ####[facility] [address] [place], [address] Potassium [Moles/Vol] 3.9 mmol/L Normal 3.3-5.1 [facility] Comment on above: Performed By: #### L 500.2500, L100.0100 ####[facility] [address] [place], [address] Sodium [Moles/Vol] 139 mmol/L Normal 133-145 [facility] Comment on above: Performed By: #### L 500.2500, L100.0100 ####[facility] [address] [place], [address] Urea nitrogen [Mass/Vol] 21 mg/dL High 4-19 [facility] Comment on above: Performed By: #### L 500.2500, L100.0100 ####[facility] [address] [place], [address] Basophil percentageOrdered B y: Felicia Paniagua on 02-19-2025 Basophils/100 WBC (Bld) 0.3 % 0-1 [facility] CBC W/Diff, Automatedon Absolute Lymph 1.51 X10 3/uL Normal 0.83-4.51 [facility] Comment on above: Performed By: #### L 500.2500, L100.0100 ####[facility] [address] [place], [address] Absolute Neut 6.3 X10 3/uL Normal 2.0-7.7 [facility] Comment on above: Performed By: #### L 500.2500, L100.0100 ####[facility] [address] [place], [address] Basophils/100 WBC (Bld) 0.3 % Normal 0-1 [facility] Comment on above: Performed By: #### L 500.2500, L100.0100 ####[facility] [address] [place], [address] Eosinophils/100 WBC (Bld) 2.2 % Normal 0-5 [facility] Comment on above: Performed By: #### L 500.2500, L100.0100 ####[facility] [address] [place], [address] Erythrocyte distribution width (RBC) [Ratio] 15.8 % High 11.6-14.6 [facility] Comment on above: Performed By: #### L 500.2500, L100.0100 ####[facility] [address] [place], [address] Hematocrit (Bld) [Volume fraction] 35.0 % Low 37-47 [facility] Comment on above: Performed By: #### L 500.2500, L100.0100 ####[facility] [address] [place], [address] Hemoglobin (Bld) [Mass/Vol] 11.0 g/dL Low 12.0-15.0 [facility] Comment on above: Performed By: #### L 500.2500, L100.0100 ####[facility] [address] [place], [address] IG% 0.700 Normal 0.0-0.9 [facility] Comment on above: Result Comment: IG% - Immature Granulocytes (promyelocytes, myelocytes andmetamyelocytes) > 1% indicates that a LEFT SHIFT is Present. Performed By: #### L 500.2500, L100.0100 ####[facility] [address] [place], [address] Lymphocytes/100 WBC (Bld) 16.5 % Low 19-41 [facility] Comment on above: Performed By: #### L 500.2500, L100.0100 ####[facility] [address] [place], [address] MCH (RBC) [Entitic mass] 28.2 pg Normal 27.0-32.0 [facility] Comment on above: Performed By: #### L 500.2500, L100.0100 ####[facility] [address] [place], [address] MCHC (RBC) [Mass/Vol] 31.4 g/dL Low 32-36 [facility] Comment on above: Performed By: #### L 500.2500, L100.0100 ####[facility] [address] [place], [address] MCV (RBC) [Entitic vol] 89.7 fL Normal 81-99 [facility] Comment on above: Performed By: #### L 500.2500, L100.0100 ####[facility] [address] [place], [address] Monocytes/100 WBC (Bld) 11.2 % High 0-10 [facility] Comment on above: Performed By: #### L 500.2500, L100.0100 ####[facility] [address] [place], [address] Neutrophils/100 WBC (Bld) 69.1 % Normal 47-70 [facility] Comment on above: Performed By: #### L 500.2500, L100.0100 ####[facility] [address] [place], [address] Nucleated RBC (Bld) [#/Vol] 0 10*3/uL Normal 0-5 [facility] Comment on above: Performed By: #### L 500.2500, L100.0100 ####[facility] [address] [place], [address] Platelet mean volume (Bld) [Entitic vol] 8.8 fL Normal 6.2-12.0 [facility] Comment on above: Performed By: #### L 500.2500, L100.0100 ####[facility] [address] [place], [address] Platelets (Bld) [#/Vol] 312 10*3/uL Normal 150-450 [facility] Comment on above: Performed By: #### L 500.2500, L100.0100 ####[facility] [address] [place], [address] RBC (Bld) [#/Vol] 3.90 10*6/uL Low 4.2-5.4 [facility] Comment on above: Performed By: #### L 500.2500, L100.0100 ####[facility] [address] [place], [address] RDW SD 51.9 fl High 35.1-43.9 [facility] Comment on above: Performed By: #### L 500.2500, L100.0100 ####[facility] [address] [place], [address] WBC (Bld) [#/Vol] 9.1 10*3/uL Normal 4.4-11.0 [facility] Comment on above: Performed By: #### L 500.2500, L100.0100 ####[facility] [address] [place], [address] Carbon dioxide, total [Moles /volume] in Central venous bloodOrdered By: Felicia Paniagua on 02-19-2025 CO2 [Moles/Vol] 23.0 mmol/L 21.0-32.0 [facility] Chloride assayOrdered By: Jacquelyn Paniagua on 02-19-2025 Chloride [Moles/Vol] 106 mmol/L 98-108 [facility] Discharge Instructionon 09-0 Discharge Instruction Normal [facility] Eosinophil percentageOrdered By: Felicia Paniagua on 02-19-2025 Eosinophils/100 WBC (Bld) 2.2 % 0-5 [facility] Erythrocyte distribution wid th ratioOrdered By: Felicia Paniagua on 02-19-2025 Erythrocyte distribution width (RBC) [Ratio] 15.8 % High 11.6-14.6 [facility] Erythrocyte distribution wid th standard deviationOrdered By: Felicia Paniagua on 02-19-2025 Erythrocyte distribution width (RBC) [Ratio] 51.9 fl High 35.1-43.9 [facility] Glomerular filtration rate ( GFR) estimation/1.73 sq m using serum, plasma, or whole bOrdered By: Felicia Paniagua on 02-19-2025 GFR/1.73 sq M.predicted among non-blacks MDRD (S/P/Bld) [Vol rate/Area] 75 mL/min/{1.73_m2} >60 [facility] Hematocrit Auto (Bld) [Volum e fraction]Ordered By: Felicia Paniagua on 02-19-2025 Hematocrit (Bld) [Volume fraction] 35.0 % Low 37-47 [facility] Hemoglobin measurementOrdere d By: Felicia Paniagua on 02-19-2025 Hemoglobin (Bld) [Mass/Vol] 11.0 g/dL Low 12.0-15.0 [facility] Immature granulocytes/100 WB C Auto (Bld)Ordered By: Felicia Paniagua on 02-19-2025 Immature granulocytes/100 WBC (Bld) 0.700 % 0.0-0.9 [facility] MCV (mean corpuscular volume ) determinationOrdered By: Felicia Paniagua on 02-19-2025 MCV (RBC) [Entitic vol] 89.7 fL 81-99 [facility] Mean corpuscular hemoglobin (MCH) determinationOrdered By: Felicia Paniagua on 02-19-2025 MCH (RBC) [Entitic mass] 28.2 pg 27.0-32.0 [facility] Monocyte percentageOrdered B y: Felicia Paniagua on 02-19-2025 Monocytes/100 WBC (Bld) 11.2 % High 0-10 [facility] Neutrophil percentageOrdered By: Felicia Paniagua on 02-19-2025 Neutrophils/100 WBC (Bld) 69.1 % 47-70 [facility] Platelet countOrdered By: Jacquelyn Paniagua on 02-19-2025 Platelets (Bld) [#/Vol] 312 10*3/uL 150-450 [facility] Potassium measurement (mass/ volume)Ordered By: Felicia Paniagua on 02-19-2025 Potassium (Unsp spec) [Mass/Vol] 3.9 mmol/L 3.3-5.1 [facility] RBC Auto (Bld) [#/Vol]Ordere d By: Felicia Paniagua on 02-19-2025 RBC (Bld) [#/Vol] 3.90 10*6/uL Low 4.2-5.4 [facility] Serum creatinine measurement (mass/volume)Ordered By: Felicia Paniagua on 02-19-2025 Creatinine [Mass/Vol] 0.78 mg/dL 0.70-1.20 [facility] Serum glucose measurement (m ass/volume)Ordered By: Felicia Paniagua on 02-19-2025 Glucose [Mass/Vol] 102 mg/dL High 70-99 [facility] Serum or plasma calcium candice urement (mass/volume)Ordered By: Felicia Paniagua on 02-19-2025 Calcium [Mass/Vol] 9.1 mg/dL 7.6-11.0 [facility] Serum or plasma urea nitroge n measurement (mass/volume)Ordered By: Felicia Paniagua on 02-19-2025 Urea nitrogen [Mass/Vol] 21 mg/dL High 4-19 [facility] Sodium levelOrdered By: Felicia Paniagua on 02-19-2025 Sodium [Moles/Vol] 139 mmol/L 133-145 [facility] White blood cell (WBC) count Ordered By: Felicia Paniagua on 02-19-2025 WBC (Bld) [#/Vol] 9.1 10*3/uL 4.4-11.0 [facility] Basic Metabolic Profile (BMP )on 02-18-2025 BUN/CRE 23.6 RATIO High 10-20 [facility] Comment on above: Order Comment: PATIE NT IS VERY AGGRESSIVE,PAN SILVA RN ASKED THAT WED WAKE HER. SPOKE TO JAY HANNAH, SHE WILL CALL ONCE PATIENTIS AWAKE AND WE ARE ABLE TO TRY HER Performed By: #### L 500.2500, L100.0100 ####[facility] [address] [place], [place], [id number] Calcium [Mass/Vol] 9.0 mg/dL Normal 7.6-11.0 [facility] Comment on above: Order Comment: PATIE NT IS VERY AGGRESSIVE,PAN SILVA RN ASKED THAT WED WAKE HER. SPOKE TO JAY HANNAH, SHE WILL CALL ONCE PATIENTIS AWAKE AND WE ARE ABLE TO TRY HER Performed By: #### L 500.2500, L100.0100 ####[facility] [address] [place], [address] Chloride [Moles/Vol] 105 mmol/L Normal 98-108 [facility] Comment on above: Order Comment: PATIE NT IS VERY AGGRESSIVE,PAN SILVA RN ASKED THAT [place] WAKE HER. SPOKE TO JAY HANNAH, SHE WILL CALL ONCE PATIENTIS AWAKE AND WE ARE ABLE TO TRY HER Performed By: #### L 500.2500, L100.0100 ####[facility] [address] [place], [address] CO2 [Moles/Vol] 19.1 mmol/L Low 21.0-32.0 [facility] Comment on above: Order Comment: PATIE NT IS VERY AGGRESSIVE,PAN SILVA RN ASKED THAT [place] WA[place] HER. SPOKE TO JAY RN, SHE WILL CALL ONCE PATIENTIS AWAKE AND WE ARE ABLE TO TRY HER Performed By: #### L 500.2500, L100.0100 ####[facility] [address] [place], [address] Creatinine [Mass/Vol] 0.77 mg/dL Normal 0.70-1.20 [facility] Comment on above: Order Comment: PATIE NT IS VERY AGGRESSIVE,PAN SILVA RN ASKED THAT [place] WA[place] HER. SPOKE TO JAY RN, SHE WILL CALL ONCE PATIENTIS AWAKE AND WE ARE ABLE TO TRY HER Performed By: #### L 500.2500, L100.0100 ####[facility] [address] [place], [address] ECRCL 45.54 ml/min Low 50-250 [facility] Comment on above: Order Comment: PATIE NT IS VERY AGGRESSIVE,PAN SILVA RN ASKED THAT [place] WA[place] HER. SPOKE TO JAY RN, SHE WILL CALL ONCE PATIENTIS AWAKE AND WE ARE ABLE TO TRY HER Performed By: #### L 500.2500, L100.0100 ####[facility] [address] [place], [address] GAP 13 Normal 5-15 [facility] Comment on above: Order Comment: PATIE NT IS VERY AGGRESSIVE,PAN SILVA RN ASKED THAT [place] WAKE HER. SPOKE TO JAY RN, SHE WILL CALL ONCE PATIENTIS AWAKE AND WE ARE ABLE TO TRY HER Performed By: #### L 500.2500, L100.0100 ####[facility] [address] [place], [address] GFR/1.73 sq M.predicted among non-blacks MDRD (S/P/Bld) [Vol rate/Area] 76 mL/min/{1.73_m2} Normal >60 [facility] Comment on above: Order Comment: PATIE NT IS VERY AGGRESSIVE,PAN SILVA RN ASKED THAT [place] HER. SPOKE TO JAY RN, SHE WILL CALL ONCE PATIENTIS AWAKE AND WE ARE ABLE TO TRY HER Result Comment: mL/m in/1.73m2 CKD-EPI Creatinine Equation (2020) Performed By: #### L 500.2500, L100.0100 ####[facility] [address] [place], [address] Glucose [Mass/Vol] 141 mg/dL High 70-99 [facility] Comment on above: Order Comment: PATIE NT IS VERY AGGRESSIVE,PAN SILVA RN ASKED THAT [place] HER. SPOKE TO JAY RN, SHE WILL CALL ONCE PATIENTIS AWAKE AND WE ARE ABLE TO TRY HER Performed By: #### L 500.2500, L100.0100 ####[facility] [address] [place], [address] Potassium [Moles/Vol] 4.0 mmol/L Normal 3.3-5.1 [facility] Comment on above: Order Comment: PATIE NT IS VERY AGGRESSIVE,PAN SILVA RN ASKED THAT [place] HER. SPOKE TO JAY RN, SHE WILL CALL ONCE PATIENTIS AWAKE AND WE ARE ABLE TO TRY HER Performed By: #### L 500.2500, L100.0100 ####[facility] [address] [place], [address] Sodium [Moles/Vol] 137 mmol/L Normal 133-145 [facility] Comment on above: Order Comment: PATIE NT IS VERY AGGRESSIVE,PAN SILVA RN ASKED THAT WED WAKE HER. SPOKE TO JAY RN, SHE WILL CALL ONCE PATIENTIS AWAKE AND WE ARE ABLE TO TRY HER Performed By: #### L 500.2500, L100.0100 ####[facility] [address] [place], [address] Urea nitrogen [Mass/Vol] 18 mg/dL Normal 4-19 [facility] Comment on above: Order Comment: PATIE NT IS VERY AGGRESSIVE,PAN SILVA RN ASKED THAT [place] WA[place] HER. SPOKE TO JAY RN, SHE WILL CALL ONCE PATIENTIS AWAKE AND WE ARE ABLE TO TRY HER Performed By: #### L 500.2500, L100.0100 ####[facility] [address] [place], [address] CBC W/Diff, Automatedon 09-0 6-2025 Absolute Lymph 1.13 X10 3/uL Normal 0.83-4.51 [facility] Comment on above: Order Comment: PATIE NT IS VERY AGGRESSIVE,PAN SILVA RN ASKED THAT [place] HER. SPOKE TO JAY RN, SHE WILL CALL ONCE PATIENTIS AWAKE AND WE ARE ABLE TO TRY HER Performed By: #### L 500.2500, L100.0100 ####[facility] [address] [place], [address] Absolute Neut 5.5 X10 3/uL Normal 2.0-7.7 [facility] Comment on above: Order Comment: PATIE NT IS VERY AGGRESSIVE,PAN SILVA RN ASKED THAT [place] HER. SPOKE TO JAY RN, SHE WILL CALL ONCE PATIENTIS AWAKE AND WE ARE ABLE TO TRY HER Performed By: #### L 500.2500, L100.0100 ####[facility] [address] [place], [address] Basophils/100 WBC (Bld) 0.4 % Normal 0-1 [facility] Comment on above: Order Comment: PATIE NT IS VERY AGGRESSIVE,PAN SILVA RN ASKED THAT [place] HER. SPOKE TO JAY RN, SHE WILL CALL ONCE PATIENTIS AWAKE AND WE ARE ABLE TO TRY HER Performed By: #### L 500.2500, L100.0100 ####[facility] [address] [place], [address] Eosinophils/100 WBC (Bld) 2.0 % Normal 0-5 [facility] Comment on above: Order Comment: PATIE NT IS VERY AGGRESSIVE,PAN SILVA RN ASKED THAT [place] HER. SPOKE TO JAY RN, SHE WILL CALL ONCE PATIENTIS AWAKE AND WE ARE ABLE TO TRY HER Performed By: #### L 500.2500, L100.0100 ####[facility] [address] [place], [address] Erythrocyte distribution width (RBC) [Ratio] 15.9 % High 11.6-14.6 [facility] Comment on above: Order Comment: PATIE NT IS VERY AGGRESSIVE,PAN SILVA RN ASKED THAT [place] HER. SPOKE TO JAY RN, SHE WILL CALL ONCE PATIENTIS AWAKE AND WE ARE ABLE TO TRY HER Performed By: #### L 500.2500, L100.0100 ####[facility] [address] [place], [place], [id number]) Hematocrit (Bld) [Volume fraction] 37.0 % Normal 37-47 [facility] Comment on above: Order Comment: PATIE NT IS VERY AGGRESSIVE,PAN SILVA RN ASKED THAT [place] HER. SPOKE TO JAY RN, SHE WILL CALL ONCE PATIENTIS AWAKE AND WE ARE ABLE TO TRY HER Performed By: #### L 500.2500, L100.0100 ####[facility] [address] [place], [address] Hemoglobin (Bld) [Mass/Vol] 11.7 g/dL Low 12.0-15.0 [facility] Comment on above: Order Comment: PATIE NT IS VERY AGGRESSIVE,PAN SILVA RN ASKED THAT [place] HER. SPOKE TO JAY RN, SHE WILL CALL ONCE PATIENTIS AWAKE AND WE ARE ABLE TO TRY HER Performed By: #### L 500.2500, L100.0100 ####[facility] [address] [place], [address] IG% 0.700 Normal 0.0-0.9 [facility] Comment on above: Order Comment: PATIE NT IS VERY AGGRESSIVE,PAN SILVA RN ASKED THAT [place] HER. SPOKE TO JAY RN, SHE WILL CALL ONCE PATIENTIS AWAKE AND WE ARE ABLE TO TRY HER Result Comment: IG% - Immature Granulocytes (promyelocytes, myelocytes andmetamyelocytes) > 1% indicates that a LEFT SHIFT is Present. Performed By: #### L 500.2500, L100.0100 ####[facility] [address] [place], [address] Lymphocytes/100 WBC (Bld) 14.7 % Low 19-41 [facility] Comment on above: Order Comment: PATIE NT IS VERY AGGRESSIVE,PAN SILVA RN ASKED THAT [place] HER. SPOKE TO JAY RN, SHE WILL CALL ONCE PATIENTIS AWAKE AND WE ARE ABLE TO TRY HER Performed By: #### L 500.2500, L100.0100 ####[facility] [address] [place], [address] MCH (RBC) [Entitic mass] 28.2 pg Normal 27.0-32.0 [facility] Comment on above: Order Comment: PATIE NT IS VERY AGGRESSIVE,PAN SILVA RN ASKED THAT [place] HER. SPOKE TO JAY RN, SHE WILL CALL ONCE PATIENTIS AWAKE AND WE ARE ABLE TO TRY HER Performed By: #### L 500.2500, L100.0100 ####[facility] [address] [place], [address] MCHC (RBC) [Mass/Vol] 31.6 g/dL Low 32-36 [facility] Comment on above: Order Comment: PATIE NT IS VERY AGGRESSIVE,PAN SILVA RN ASKED THAT [place] HER. SPOKE TO JAY RN, SHE WILL CALL ONCE PATIENTIS AWAKE AND WE ARE ABLE TO TRY HER Performed By: #### L 500.2500, L100.0100 ####[facility] [address] [place], [address] MCV (RBC) [Entitic vol] 89.2 fL Normal 81-99 [facility] Comment on above: Order Comment: PATIE NT IS VERY AGGRESSIVE,PAN SILVA RN ASKED THAT [place] HER. SPOKE TO JAY RN, SHE WILL CALL ONCE PATIENTIS AWAKE AND WE ARE ABLE TO TRY HER Performed By: #### L 500.2500, L100.0100 ####[facility] [address] [place], [address] Monocytes/100 WBC (Bld) 10.8 % High 0-10 [facility] Comment on above: Order Comment: PATIE NT IS VERY AGGRESSIVE,PAN SILVA RN ASKED THAT [place] HER. SPOKE TO JAY RN, SHE WILL CALL ONCE PATIENTIS AWAKE AND WE ARE ABLE TO TRY HER Performed By: #### L 500.2500, L100.0100 ####[facility] [address] [place], [address] Neutrophils/100 WBC (Bld) 71.4 % High 47-70 [facility] Comment on above: Order Comment: PATIE NT IS VERY AGGRESSIVE,PAN SILVA RN ASKED THAT [place] HER. SPOKE TO JAY RN, SHE WILL CALL ONCE PATIENTIS AWAKE AND WE ARE ABLE TO TRY HER Performed By: #### L 500.2500, L100.0100 ####[facility] [address] [place], [address] Nucleated RBC (Bld) [#/Vol] 0 10*3/uL Normal 0-5 [facility] Comment on above: Order Comment: PATIE NT IS VERY AGGRESSIVE,PAN SILVA RN ASKED THAT [place] HER. SPOKE TO JAY RN, SHE WILL CALL ONCE PATIENTIS AWAKE AND WE ARE ABLE TO TRY HER Performed By: #### L 500.2500, L100.0100 ####[facility] [address] [place], [address] Platelet mean volume (Bld) [Entitic vol] 8.7 fL Normal 6.2-12.0 [facility] Comment on above: Order Comment: PATIE NT IS VERY AGGRESSIVE,PAN SILVA RN ASKED THAT [place] HER. SPOKE TO JAY RN, SHE WILL CALL ONCE PATIENTIS AWAKE AND WE ARE ABLE TO TRY HER Performed By: #### L 500.2500, L100.0100 ####[facility] [address] [place], [address] Platelets (Bld) [#/Vol] 338 10*3/uL Normal 150-450 [facility] Comment on above: Order Comment: PATIE NT IS VERY AGGRESSIVE,PAN SILVA RN ASKED THAT [place] HER. SPOKE TO JAY RN, SHE WILL CALL ONCE PATIENTIS AWAKE AND WE ARE ABLE TO TRY HER Performed By: #### L 500.2500, L100.0100 ####[facility] [address] [place], [address] RBC (Bld) [#/Vol] 4.15 10*6/uL Low 4.2-5.4 [facility] Comment on above: Order Comment: PATIE NT IS VERY AGGRESSIVE,PAN SILVA RN ASKED THAT [place] HER. SPOKE TO JAY RN, SHE WILL CALL ONCE PATIENTIS AWAKE AND WE ARE ABLE TO TRY HER Performed By: #### L 500.2500, L100.0100 ####[facility] [id number] [place], [address] RDW SD 52.6 fl High 35.1-43.9 [facility] Comment on above: Order Comment: PATIE NT IS VERY AGGRESSIVE,PAN SILVA RN ASKED THAT [place] HER. SPOKE TO JAY RN, SHE WILL CALL ONCE PATIENTIS AWAKE AND WE ARE ABLE TO TRY HER Performed By: #### L 500.2500, L100.0100 ####[facility] [id number] [place], [address] WBC (Bld) [#/Vol] 7.7 10*3/uL Normal 4.4-11.0 [facility] Comment on above: Order Comment: PATIE NT IS VERY AGGRESSIVE,PAN SILVA RN ASKED THAT [place] HER. SPOKE TO JAY RN, SHE WILL CALL ONCE PATIENTIS AWAKE AND WE ARE ABLE TO TRY HER Performed By: #### L 500.2500, L100.0100 ####[facility] [id number] [place], [address] Basic Metabolic Profile (BMP )on 02-17-2025 BUN/CRE 23.8 RATIO High 10-20 [facility] Comment on above: Performed By: #### L 100.0100, L500.2500 ####[facility] [address] [place], [address] Calcium [Mass/Vol] 9.1 mg/dL Normal 7.6-11.0 [facility] Comment on above: Performed By: #### L 100.0100, L500.2500 ####[facility] [address] [place], [address] Chloride [Moles/Vol] 108 mmol/L Normal 98-108 [facility] Comment on above: Performed By: #### L 100.0100, L500.2500 ####[facility] [address] [place], [address] CO2 [Moles/Vol] 21.0 mmol/L Normal 21.0-32.0 [facility] Comment on above: Performed By: #### L 100.0100, L500.2500 ####[facility] [address] [place], [address] Creatinine [Mass/Vol] 0.69 mg/dL Low 0.70-1.20 [facility] Comment on above: Performed By: #### L 100.0100, L500.2500 ####[facility] [address] [place], [address] ECRCL 45.54 ml/min Low 50-250 [facility] Comment on above: Performed By: #### L 100.0100, L500.2500 ####[facility] [address] [place], [address] GAP 11 Normal 5-15 [facility] Comment on above: Performed By: #### L 100.0100, L500.2500 ####[facility] [address] [place], [address] GFR/1.73 sq M.predicted among non-blacks MDRD (S/P/Bld) [Vol rate/Area] 86 mL/min/{1.73_m2} Normal >60 [facility] Comment on above: Result Comment: mL/m in/1.73m2 CKD-EPI Creatinine Equation (2020) Performed By: #### L 100.0100, L500.2500 ####[facility] [address] [place], [address] Glucose [Mass/Vol] 112 mg/dL High 70-99 [facility] Comment on above: Performed By: #### L 100.0100, L500.2500 ####[facility] [address] [place], [address] Potassium [Moles/Vol] 3.7 mmol/L Normal 3.3-5.1 [facility] Comment on above: Performed By: #### L 100.0100, L500.2500 ####[facility] [address] [place], [address] Sodium [Moles/Vol] 141 mmol/L Normal 133-145 [facility] Comment on above: Performed By: #### L 100.0100, L500.2500 ####[facility] [address] [place], [address] Urea nitrogen [Mass/Vol] 16 mg/dL Normal 4-19 [facility] Comment on above: Performed By: #### L 100.0100, L500.2500 ####[facility] [address] [place], [address] CBC W/Diff, Automatedon 09-0 -2024 Absolute Lymph 1.55 X10 3/uL Normal 0.83-4.51 [facility] Comment on above: Performed By: #### L 100.0100, L500.2500 ####[facility] [address] [place], [address] Absolute Neut 4.6 X10 3/uL Normal 2.0-7.7 [facility] Comment on above: Performed By: #### L 100.0100, L500.2500 ####[facility] [address] [place], [address] Basophils/100 WBC (Bld) 0.4 % Normal 0-1 [facility] Comment on above: Performed By: #### L 100.0100, L500.2500 ####[facility] [address] [place], [address] Eosinophils/100 WBC (Bld) 3.1 % Normal 0-5 [facility] Comment on above: Performed By: #### L 100.0100, L500.2500 ####[facility] [address] [place], [address] Erythrocyte distribution width (RBC) [Ratio] 15.9 % High 11.6-14.6 [facility] Comment on above: Performed By: #### L 100.0100, L500.2500 ####[facility] [address] [place], [address] Hematocrit (Bld) [Volume fraction] 35.4 % Low 37-47 [facility] Comment on above: Performed By: #### L 100.0100, L500.2500 ####[facility] [address] [place], [address] Hemoglobin (Bld) [Mass/Vol] 11.3 g/dL Low 12.0-15.0 [facility] Comment on above: Performed By: #### L 100.0100, L500.2500 ####[facility] [address] [place], [address] IG% 0.500 Normal 0.0-0.9 [facility] Comment on above: Result Comment: IG% - Immature Granulocytes (promyelocytes, myelocytes andmetamyelocytes) > 1% indicates that a LEFT SHIFT is Present. Performed By: #### L 100.0100, L500.2500 ####[facility] [address] [place], [address] Lymphocytes/100 WBC (Bld) 21.0 % Normal 19-41 [facility] Comment on above: Performed By: #### L 100.0100, L500.2500 ####[facility] [address] [place], [address] MCH (RBC) [Entitic mass] 28.3 pg Normal 27.0-32.0 [facility] Comment on above: Performed By: #### L 100.0100, L500.2500 ####[facility] [address] [place], [address] MCHC (RBC) [Mass/Vol] 31.9 g/dL Low 32-36 [facility] Comment on above: Performed By: #### L 100.0100, L500.2500 ####[facility] [address] [place], [address] MCV (RBC) [Entitic vol] 88.7 fL Normal 81-99 [facility] Comment on above: Performed By: #### L 100.0100, L500.2500 ####[facility] [address] [place], [address] Monocytes/100 WBC (Bld) 13.3 % High 0-10 [facility] Comment on above: Performed By: #### L 100.0100, L500.2500 ####[facility] [address] [place], [address] Neutrophils/100 WBC (Bld) 61.7 % Normal 47-70 [facility] Comment on above: Performed By: #### L 100.0100, L500.2500 ####[facility] [address] [place], [address] Nucleated RBC (Bld) [#/Vol] 0 10*3/uL Normal 0-5 [facility] Comment on above: Performed By: #### L 100.0100, L500.2500 ####[facility] [address] [place], [address] Platelet mean volume (Bld) [Entitic vol] 9.1 fL Normal 6.2-12.0 [facility] Comment on above: Performed By: #### L 100.0100, L500.2500 ####[facility] [address] [place], [address] Platelets (Bld) [#/Vol] 316 10*3/uL Normal 150-450 [facility] Comment on above: Performed By: #### L 100.0100, L500.2500 ####[facility] [address] [place], [address] RBC (Bld) [#/Vol] 3.99 10*6/uL Low 4.2-5.4 [facility] Comment on above: Performed By: #### L 100.0100, L500.2500 ####[facility] [address] [place], [address] RDW SD 52.5 fl High 35.1-43.9 [facility] Comment on above: Performed By: #### L 100.0100, L500.2500 ####[facility] [address] [place], [address] WBC (Bld) [#/Vol] 7.4 10*3/uL Normal 4.4-11.0 [facility] Comment on above: Performed By: #### L 100.0100, L500.2500 ####[facility] [address] [place], [address] Basic Metabolic Profile (BMP )on 02-16-2025 BUN/CRE 23.8 RATIO High 10-20 [facility] Comment on above: Performed By: #### L 500.2500, L100.0100 ####[facility] [address] [place], [address] Calcium [Mass/Vol] 9.4 mg/dL Normal 7.6-11.0 [facility] Comment on above: Performed By: #### L 500.2500, L100.0100 ####[facility] [address] [place], [address] Chloride [Moles/Vol] 104 mmol/L Normal 98-108 [facility] Comment on above: Performed By: #### L 500.2500, L100.0100 ####[facility] [address] [place], [address] CO2 [Moles/Vol] 22.7 mmol/L Normal 21.0-32.0 [facility] Comment on above: Performed By: #### L 500.2500, L100.0100 ####[facility] [address] [place], [address] Creatinine [Mass/Vol] 0.88 mg/dL Normal 0.70-1.20 [facility] Comment on above: Performed By: #### L 500.2500, L100.0100 ####[facility] [address] [place], [address] ECRCL 41.40 ml/min Low 50-250 [facility] Comment on above: Performed By: #### L 500.2500, L100.0100 ####[facility] [address] [place], [address] GAP 13 Normal 5-15 [facility] Comment on above: Performed By: #### L 500.2500, L100.0100 ####[facility] [address] [place], [address] GFR/1.73 sq M.predicted among non-blacks MDRD (S/P/Bld) [Vol rate/Area] 65 mL/min/{1.73_m2} Normal >60 [facility] Comment on above: Result Comment: mL/m in/1.73m2 CKD-EPI Creatinine Equation (2020) Performed By: #### L 500.2500, L100.0100 ####[facility] [address] [place], [address] Glucose [Mass/Vol] 134 mg/dL High 70-99 [facility] Comment on above: Performed By: #### L 500.2500, L100.0100 ####[facility] [address] [place], [address] Potassium [Moles/Vol] 3.7 mmol/L Normal 3.3-5.1 [facility] Comment on above: Performed By: #### L 500.2500, L100.0100 ####[facility] [address] [place], [address] Sodium [Moles/Vol] 139 mmol/L Normal 133-145 [facility] Comment on above: Performed By: #### L 500.2500, L100.0100 ####[facility] [address] [place], [address] Urea nitrogen [Mass/Vol] 21 mg/dL High 4-19 [facility] Comment on above: Performed By: #### L 500.2500, L100.0100 ####[facility] [address] [place], [address] CBC W/Diff, Automatedon 09-0 -2024 Absolute Lymph 1.16 X10 3/uL Normal 0.83-4.51 [facility] Comment on above: Performed By: #### L 500.2500, L100.0100 ####[facility] [address] [place], [address] Absolute Neut 5.3 X10 3/uL Normal 2.0-7.7 [facility] Comment on above: Performed By: #### L 500.2500, L100.0100 ####[facility] [address] [place], [address] Basophils/100 WBC (Bld) 0.3 % Normal 0-1 [facility] Comment on above: Performed By: #### L 500.2500, L100.0100 ####[facility] [address] [place], [address] Eosinophils/100 WBC (Bld) 2.3 % Normal 0-5 [facility] Comment on above: Performed By: #### L 500.2500, L100.0100 ####[facility] [address] [place], [address] Erythrocyte distribution width (RBC) [Ratio] 16.4 % High 11.6-14.6 [facility] Comment on above: Performed By: #### L 500.2500, L100.0100 ####[facility] [address] [place], [address] Hematocrit (Bld) [Volume fraction] 38.3 % Normal 37-47 [facility] Comment on above: Performed By: #### L 500.2500, L100.0100 ####[facility] [address] [place], [address] Hemoglobin (Bld) [Mass/Vol] 12.0 g/dL Normal 12.0-15.0 [facility] Comment on above: Performed By: #### L 500.2500, L100.0100 ####[facility] [address] [place], [address] IG% 0.600 Normal 0.0-0.9 [facility] Comment on above: Result Comment: IG% - Immature Granulocytes (promyelocytes, myelocytes andmetamyelocytes) > 1% indicates that a LEFT SHIFT is Present. Performed By: #### L 500.2500, L100.0100 ####[facility] [address] [place], [address] Lymphocytes/100 WBC (Bld) 14.9 % Low 19-41 [facility] Comment on above: Performed By: #### L 500.2500, L100.0100 ####[facility] [address] [place], [address] MCH (RBC) [Entitic mass] 28.1 pg Normal 27.0-32.0 [facility] Comment on above: Performed By: #### L 500.2500, L100.0100 ####[facility] [address] [place], [address] MCHC (RBC) [Mass/Vol] 31.3 g/dL Low 32-36 [facility] Comment on above: Performed By: #### L 500.2500, L100.0100 ####[facility] [address] [place], [address] MCV (RBC) [Entitic vol] 89.7 fL Normal 81-99 [facility] Comment on above: Performed By: #### L 500.2500, L100.0100 ####[facility] [address] [place], [address] Monocytes/100 WBC (Bld) 14.1 % High 0-10 [facility] Comment on above: Performed By: #### L 500.2500, L100.0100 ####[facility] [address] [place], [address] Neutrophils/100 WBC (Bld) 67.8 % Normal 47-70 [facility] Comment on above: Performed By: #### L 500.2500, L100.0100 ####[facility] [address] [place], [address] Nucleated RBC (Bld) [#/Vol] 0 10*3/uL Normal 0-5 [facility] Comment on above: Performed By: #### L 500.2500, L100.0100 ####[facility] [address] [place], [address] Platelet mean volume (Bld) [Entitic vol] 8.9 fL Normal 6.2-12.0 [facility] Comment on above: Performed By: #### L 500.2500, L100.0100 ####[facility] [address] [place], [address] Platelets (Bld) [#/Vol] 328 10*3/uL Normal 150-450 [facility] Comment on above: Performed By: #### L 500.2500, L100.0100 ####[facility] [address] [place], [address] RBC (Bld) [#/Vol] 4.27 10*6/uL Normal 4.2-5.4 [facility] Comment on above: Performed By: #### L 500.2500, L100.0100 ####[facility] [address] [place], [address] RDW SD 53.4 fl High 35.1-43.9 [facility] Comment on above: Performed By: #### L 500.2500, L100.0100 ####[facility] [address] [facility] [place], [address] WBC (Bld) [#/Vol] 7.8 10*3/uL Normal 4.4-11.0 [facility] Comment on above: Performed By: #### L 500.2500, L100.0100 ####[facility] [address] [place], [address] Basic Metabolic Profile (BMP )on 02-15-2025 BUN/CRE 17.5 RATIO Normal 10-20 [facility] Comment on above: Performed By: #### L 500.2500, L100.0100 ####[facility] [address] [place], [address] Calcium [Mass/Vol] 8.9 mg/dL Normal 7.6-11.0 [facility] Comment on above: Performed By: #### L 500.2500, L100.0100 ####[facility] [address] [place], [address] Chloride [Moles/Vol] 103 mmol/L Normal 98-108 [facility] Comment on above: Performed By: #### L 500.2500, L100.0100 ####[facility] [address] [place], [address] CO2 [Moles/Vol] 21.1 mmol/L Normal 21.0-32.0 [facility] Comment on above: Performed By: #### L 500.2500, L100.0100 ####[facility] [address] [place], [address] Creatinine [Mass/Vol] 0.94 mg/dL Normal 0.70-1.20 [facility] Comment on above: Performed By: #### L 500.2500, L100.0100 ####[facility] [address] [place], [address] ECRCL 38.76 ml/min Low 50-250 [facility] Comment on above: Performed By: #### L 500.2500, L100.0100 ####[facility] [address] [place], [address] GAP 13 Normal 5-15 [facility] Comment on above: Performed By: #### L 500.2500, L100.0100 ####[facility] [address] [place], [address] GFR/1.73 sq M.predicted among non-blacks MDRD (S/P/Bld) [Vol rate/Area] 60 mL/min/{1.73_m2} Normal >60 [facility] Comment on above: Result Comment: mL/m in/1.73m2 CKD-EPI Creatinine Equation (2020) Performed By: #### L 500.2500, L100.0100 ####[facility] [address] [place], [address] Glucose [Mass/Vol] 82 mg/dL Normal 70-99 [facility] Comment on above: Performed By: #### L 500.2500, L100.0100 ####[facility] [address] [place], [address] Potassium [Moles/Vol] 3.6 mmol/L Normal 3.3-5.1 [facility] Comment on above: Performed By: #### L 500.2500, L100.0100 ####[facility] [address] [place], [address] Sodium [Moles/Vol] 137 mmol/L Normal 133-145 [facility] Comment on above: Performed By: #### L 500.2500, L100.0100 ####[facility] [address] [place], [address] Urea nitrogen [Mass/Vol] 17 mg/dL Normal 4-19 [facility] Comment on above: Performed By: #### L 500.2500, L100.0100 ####[facility] [address] [place], [address] CBC W/Diff, Automatedon 09-0 -2024 Absolute Lymph 1.30 X10 3/uL Normal 0.83-4.51 [facility] Comment on above: Performed By: #### L 500.2500, L100.0100 ####[facility] [address] [place], [address] Absolute Neut 5.0 X10 3/uL Normal 2.0-7.7 [facility] Comment on above: Performed By: #### L 500.2500, L100.0100 ####[facility] [address] [place], [address] Basophils/100 WBC (Bld) 0.4 % Normal 0-1 [facility] Comment on above: Performed By: #### L 500.2500, L100.0100 ####[facility] [address] [place], [address] Eosinophils/100 WBC (Bld) 1.8 % Normal 0-5 [facility] Comment on above: Performed By: #### L 500.2500, L100.0100 ####[facility] [address] [place], [address] Erythrocyte distribution width (RBC) [Ratio] 16.4 % High 11.6-14.6 [facility] Comment on above: Performed By: #### L 500.2500, L100.0100 ####[facility] [address] [place], [address] Hematocrit (Bld) [Volume fraction] 36.3 % Low 37-47 [facility] Comment on above: Performed By: #### L 500.2500, L100.0100 ####[facility] [address] [place], [address] Hemoglobin (Bld) [Mass/Vol] 11.5 g/dL Low 12.0-15.0 [facility] Comment on above: Performed By: #### L 500.2500, L100.0100 ####[facility] [address] [place], [address] IG% 0.500 Normal 0.0-0.9 [facility] Comment on above: Result Comment: IG% - Immature Granulocytes (promyelocytes, myelocytes andmetamyelocytes) > 1% indicates that a LEFT SHIFT is Present. Performed By: #### L 500.2500, L100.0100 ####[facility] [address] [place], [address] Lymphocytes/100 WBC (Bld) 16.8 % Low 19-41 [facility] Comment on above: Performed By: #### L 500.2500, L100.0100 ####[facility] [address] [place], [address] MCH (RBC) [Entitic mass] 28.2 pg Normal 27.0-32.0 [facility] Comment on above: Performed By: #### L 500.2500, L100.0100 ####[facility] [address] [place], [address] MCHC (RBC) [Mass/Vol] 31.7 g/dL Low 32-36 [facility] Comment on above: Performed By: #### L 500.2500, L100.0100 ####[facility] [address] [place], [address] MCV (RBC) [Entitic vol] 89.0 fL Normal 81-99 [facility] Comment on above: Performed By: #### L 500.2500, L100.0100 ####[facility] [address] [place], [address] Monocytes/100 WBC (Bld) 16.6 % High 0-10 [facility] Comment on above: Performed By: #### L 500.2500, L100.0100 ####[facility] [address] [place], [address] Neutrophils/100 WBC (Bld) 63.9 % Normal 47-70 [facility] Comment on above: Performed By: #### L 500.2500, L100.0100 ####[facility] [address] [place], [address] Nucleated RBC (Bld) [#/Vol] 0 10*3/uL Normal 0-5 [facility] Comment on above: Performed By: #### L 500.2500, L100.0100 ####[facility] [address] [place], [address] Platelet mean volume (Bld) [Entitic vol] 8.6 fL Normal 6.2-12.0 [facility] Comment on above: Performed By: #### L 500.2500, L100.0100 ####[facility] [address] [place], [address] Platelets (Bld) [#/Vol] 279 10*3/uL Normal 150-450 [facility] Comment on above: Performed By: #### L 500.2500, L100.0100 ####[facility] [address] [place], [address] RBC (Bld) [#/Vol] 4.08 10*6/uL Low 4.2-5.4 [facility] Comment on above: Performed By: #### L 500.2500, L100.0100 ####[facility] [address] [place], [address] RDW SD 53.1 fl High 35.1-43.9 [facility] Comment on above: Performed By: #### L 500.2500, L100.0100 ####[facility] [address] [place], [address] WBC (Bld) [#/Vol] 7.8 10*3/uL Normal 4.4-11.0 [facility] Comment on above: Performed By: #### L 500.2500, L100.0100 ####[facility] [address] [place], [address] Electrocardiogram reportOrde red By: Yunior Desai on 02-15-2025 EKG study [facility] Work Phone: [phone] Lead EKGon 02-14-2025 12 Lead EKG Normal [facility] Absolute lymphocyte countOrd ered By: Arya Gannon on 02-14-2025 Lymphocytes Auto (Unsp spec) [#/Vol] 1.18 10*3/uL 0.83-4.51 [facility] Activated partial thrombopla stin time (aPTT) in platelet poor plasma by coagulation aOrdered By: Aryamisha Gannon on 02-14-2025 aPTT Coag (PPP) [Time] 29.6 s 24.1-36.2 [facility] Anion gap in Serum or Plasma Or[facility]-2025 Anion gap [Moles/Vol] 12 mmol/L 5-15 [facility] Automated lymphocyte count a s percentage of total leukocytesOrdered By: Trenton Teressa on 02-14-2025 Lymphocytes/100 WBC Auto (Unsp spec) 11.8 % Low 19-41 [facility] BUN/creatinine ratioOrdered By: [facility] on 02-14-2025 Urea nitrogen/Creatinine [Mass ratio] 19.4 mg/mg 10-20 [facility] Basophil percentageOrdered B y: Trenton KenLizeth on 02-14-2025 Basophils/100 WBC (Bld) 0.4 % 0-1 [facility] Bilirubin Test strip Ql (U)O rdered By: [facility] on 02-14-2025 Bilirubin Ql (U) Negative Negative [facility] Bilirubin, totalOrdered By: [facility] on 02-14-2025 Bilirubin [Mass/Vol] 0.56 mg/dL 0.00-1.30 [facility] CBC W/Diff, Automatedon Absolute Lymph 1.18 X10 3/uL Normal 0.83-4.51 [facility] Comment on above: Performed By: #### L 503.6005, L300.4310, L100.0100, L300.3900, L500.4050, L501.2450 ####[facility] [address] [place], [place], [id number] Absolute Neut 7.4 X10 3/uL Normal 2.0-7.7 [facility] Comment on above: Performed By: #### L 503.6005, L300.4310, L100.0100, L300.3900, L500.4050, L501.2450 ####[facility] [address] [place], [address] Basophils/100 WBC (Bld) 0.4 % Normal 0-1 [facility] Comment on above: Performed By: #### L 503.6005, L300.4310, L100.0100, L300.3900, L500.4050, L501.2450 ####[facility] [address] [place], [address] Eosinophils/100 WBC (Bld) 0.8 % Normal 0-5 [facility] Comment on above: Performed By: #### L 503.6005, L300.4310, L100.0100, L300.3900, L500.4050, L501.2450 ####[facility] [address] [place], [address] Erythrocyte distribution width (RBC) [Ratio] 16.3 % High 11.6-14.6 [facility] Comment on above: Performed By: #### L 503.6005, L300.4310, L100.0100, L300.3900, L500.4050, L501.2450 ####[facility] [address] [place], [address] Hematocrit (Bld) [Volume fraction] 35.8 % Low 37-47 [facility] Comment on above: Performed By: #### L 503.6005, L300.4310, L100.0100, L300.3900, L500.4050, L501.2450 ####[facility] [address] [place], [address] Hemoglobin (Bld) [Mass/Vol] 11.5 g/dL Low 12.0-15.0 [facility] Comment on above: Performed By: #### L 503.6005, L300.4310, L100.0100, L300.3900, L500.4050, L501.2450 ####[facility] [address] [place], [address] IG% 0.700 Normal 0.0-0.9 [facility] Comment on above: Result Comment: IG% - Immature Granulocytes (promyelocytes, myelocytes andmetamyelocytes) > 1% indicates that a LEFT SHIFT is Present. Performed By: #### L 503.6005, L300.4310, L100.0100, L300.3900, L500.4050, L501.2450 ####[facility] [address] [place], [address] Lymphocytes/100 WBC (Bld) 11.8 % Low 19-41 [facility] Comment on above: Performed By: #### L 503.6005, L300.4310, L100.0100, L300.3900, L500.4050, L501.2450 ####[facility] [address] [place], [address] MCH (RBC) [Entitic mass] 28.5 pg Normal 27.0-32.0 [facility] Comment on above: Performed By: #### L 503.6005, L300.4310, L100.0100, L300.3900, L500.4050, L501.2450 ####[facility] [address] [place], [address] MCHC (RBC) [Mass/Vol] 32.1 g/dL Normal 32-36 [facility] Comment on above: Performed By: #### L 503.6005, L300.4310, L100.0100, L300.3900, L500.4050, L501.2450 ####[facility] [address] [place], [address] MCV (RBC) [Entitic vol] 88.6 fL Normal 81-99 [facility] Comment on above: Performed By: #### L 503.6005, L300.4310, L100.0100, L300.3900, L500.4050, L501.2450 ####[facility] [address] [place], [address] Monocytes/100 WBC (Bld) 12.2 % High 0-10 [facility] Comment on above: Performed By: #### L 503.6005, L300.4310, L100.0100, L300.3900, L500.4050, L501.2450 ####[facility] [address] [place], [address] Neutrophils/100 WBC (Bld) 74.1 % High 47-70 [facility] Comment on above: Performed By: #### L 503.6005, L300.4310, L100.0100, L300.3900, L500.4050, L501.2450 ####[facility] [address] [place], [address] Nucleated RBC (Bld) [#/Vol] 0 10*3/uL Normal 0-5 [facility] Comment on above: Performed By: #### L 503.6005, L300.4310, L100.0100, L300.3900, L500.4050, L501.2450 ####[facility] [address] [place], [address] Platelet mean volume (Bld) [Entitic vol] 8.5 fL Normal 6.2-12.0 [facility] Comment on above: Performed By: #### L 503.6005, L300.4310, L100.0100, L300.3900, L500.4050, L501.2450 ####[facility] [address] [place], [address] Platelets (Bld) [#/Vol] 328 10*3/uL Normal 150-450 [facility] Comment on above: Performed By: #### L 503.6005, L300.4310, L100.0100, L300.3900, L500.4050, L501.2450 ####[facility] [address] [place], [address] RBC (Bld) [#/Vol] 4.04 10*6/uL Low 4.2-5.4 [facility] Comment on above: Performed By: #### L 503.6005, L300.4310, L100.0100, L300.3900, L500.4050, L501.2450 ####[facility] [address] [place], [address] RDW SD 52.9 fl High 35.1-43.9 [facility] Comment on above: Performed By: #### L 503.6005, L300.4310, L100.0100, L300.3900, L500.4050, L501.2450 ####[facility] [address] [place], [address] WBC (Bld) [#/Vol] 10.0 10*3/uL Normal 4.4-11.0 [facility] Comment on above: Performed By: #### L 503.6005, L300.4310, L100.0100, L300.3900, L500.4050, L501.2450 ####[facility] [address] [place], [address] Carbon dioxide, total [Moles /volume] in Central venous bloodOrdered By: Arya Gannon on 02-14-2025 CO2 [Moles/Vol] 23.7 mmol/L 21.0-32.0 [facility] Chest PA and Lateralon 02-14 Chest PA and Lateral Normal [facility] Chloride assayOrdered By: Martín Gannon on 02-14-2025 Chloride [Moles/Vol] 100 mmol/L 98-108 [facility] Comprehensive Metabolic Prof ilon 02-14-2025 Albumin [Mass/Vol] 3.7 g/dL Normal 3.4-4.8 [facility] Comment on above: Performed By: #### L 503.6005, L300.4310, L100.0100, L300.3900, L500.4050, L501.2450 ####[facility] [address] [place], [address] Albumin/Globulin [Mass ratio] 1.2 {ratio} Normal 0.9-2.4 [facility] Comment on above: Performed By: #### L 503.6005, L300.4310, L100.0100, L300.3900, L500.4050, L501.2450 ####[facility] [address] [place], [address] ALK PHOS 150 U/L High 35-104 [facility] Comment on above: Performed By: #### L 503.6005, L300.4310, L100.0100, L300.3900, L500.4050, L501.2450 ####[facility] [address] [place], [address] ALT [Catalytic activity/Vol] 14 U/L Normal <=34 [facility] Comment on above: Performed By: #### L 503.6005, L300.4310, L100.0100, L300.3900, L500.4050, L501.2450 ####[facility] [address] [place], [address] AST [Catalytic activity/Vol] 25 U/L Normal <=31 [facility] Comment on above: Performed By: #### L 503.6005, L300.4310, L100.0100, L300.3900, L500.4050, L501.2450 ####[facility] [address] [place], [address] Bilirubin [Mass/Vol] 0.56 mg/dL Normal 0.00-1.30 [facility] Comment on above: Performed By: #### L 503.6005, L300.4310, L100.0100, L300.3900, L500.4050, L501.2450 ####[facility] [address] [place], [address] BUN/CRE 19.4 RATIO Normal 10-20 [facility] Comment on above: Performed By: #### L 503.6005, L300.4310, L100.0100, L300.3900, L500.4050, L501.2450 ####[facility] [address] [place], [address] Calcium [Mass/Vol] 8.9 mg/dL Normal 7.6-11.0 [facility] Comment on above: Performed By: #### L 503.6005, L300.4310, L100.0100, L300.3900, L500.4050, L501.2450 ####[facility] [address] [place], [address] Chloride [Moles/Vol] 100 mmol/L Normal 98-108 [facility] Comment on above: Performed By: #### L 503.6005, L300.4310, L100.0100, L300.3900, L500.4050, L501.2450 ####[facility] [address] [place], [address] CO2 [Moles/Vol] 23.7 mmol/L Normal 21.0-32.0 [facility] Comment on above: Performed By: #### L 503.6005, L300.4310, L100.0100, L300.3900, L500.4050, L501.2450 ####[facility] [address] [place], [address] Creatinine [Mass/Vol] 0.94 mg/dL Normal 0.70-1.20 [facility] Comment on above: Performed By: #### L 503.6005, L300.4310, L100.0100, L300.3900, L500.4050, L501.2450 ####[facility] [address] [place], [address] ECRCL 40.09 ml/min Low 50-250 [facility] Comment on above: Performed By: #### L 503.6005, L300.4310, L100.0100, L300.3900, L500.4050, L501.2450 ####[facility] [address] [place], [address] GAP 12 Normal 5-15 [facility] Comment on above: Performed By: #### L 503.6005, L300.4310, L100.0100, L300.3900, L500.4050, L501.2450 ####[facility] [address] [place], [address] GFR/1.73 sq M.predicted among non-blacks MDRD (S/P/Bld) [Vol rate/Area] 60 mL/min/{1.73_m2} Normal >60 [facility] Comment on above: Result Comment: mL/m in/1.73m2 CKD-EPI Creatinine Equation (2020) Performed By: #### L 503.6005, L300.4310, L100.0100, L300.3900, L500.4050, L501.2450 ####[facility] [address] [place], [address] Globulin (S) [Mass/Vol] 3.1 g/dL Normal 2.2-4.2 [facility] Comment on above: Performed By: #### L 503.6005, L300.4310, L100.0100, L300.3900, L500.4050, L501.2450 ####[facility] [address] [place], [address] Glucose [Mass/Vol] 92 mg/dL Normal 70-99 [facility] Comment on above: Performed By: #### L 503.6005, L300.4310, L100.0100, L300.3900, L500.4050, L501.2450 ####[facility] [address] [place], [address] Potassium [Moles/Vol] 3.7 mmol/L Normal 3.3-5.1 [facility] Comment on above: Performed By: #### L 503.6005, L300.4310, L100.0100, L300.3900, L500.4050, L501.2450 ####[facility] [address] [place], [address] Sodium [Moles/Vol] 135 mmol/L Normal 133-145 [facility] Comment on above: Performed By: #### L 503.6005, L300.4310, L100.0100, L300.3900, L500.4050, L501.2450 ####[facility] [address] [place], [address] T PROT 6.9 g/dL Normal 5.9-8.4 [facility] Comment on above: Performed By: #### L 503.6005, L300.4310, L100.0100, L300.3900, L500.4050, L501.2450 ####[facility] [address] [place], [address] Urea nitrogen [Mass/Vol] 18 mg/dL Normal 4-19 [facility] Comment on above: Performed By: #### L 503.6005, L300.4310, L100.0100, L300.3900, L500.4050, L501.2450 ####[facility] [address] [place], [address] Emergency Department Summary on 02-14-2025 Emergency Department Summary Normal [facility] Eosinophil percentageOrdered By: Arya Gannon on 02-14-2025 Eosinophils/100 WBC (Bld) 0.8 % 0-5 [facility] Erythrocyte distribution wid th ratioOrdered By: Arya Gannon on 02-14-2025 Erythrocyte distribution width (RBC) [Ratio] 16.3 % High 11.6-14.6 [facility] Erythrocyte distribution wid th standard deviationOrdered By: Arya Ken Stanley on 02-14-2025 Erythrocyte distribution width (RBC) [Ratio] 52.9 fl High 35.1-43.9 [facility] Glomerular filtration rate ( GFR) estimation/1.73 sq m using serum, plasma, or whole bOrdered By: Arya Gannon on 02-14-2025 GFR/1.73 sq M.predicted among non-blacks MDRD (S/P/Bld) [Vol rate/Area] 60 mL/min/{1.73_m2} >60 [facility] H AND P Exam - Hospitaliston 02-14-2025 H&P Exam - Hospitalist Normal [facility] Hematocrit Auto (Bld) [Volum e fraction]Ordered By: Arya Gannon on 02-14-2025 Hematocrit (Bld) [Volume fraction] 35.8 % Low 37-47 [facility] Hemoglobin measurementOrdere d By: Arya Gannon on 02-14-2025 Hemoglobin (Bld) [Mass/Vol] 11.5 g/dL Low 12.0-15.0 [facility] Immature granulocytes/100 WB C Auto (Bld)Ordered By: Arya Gannon on 02-14-2025 Immature granulocytes/100 WBC (Bld) 0.700 % 0.0-0.9 [facility] Influenza virus A and B and SARS-CoV-2 (COVID-19) and Respiratory syncytial virus RNAOrdered By: Arya Gannon on 02-14-2025 SARS-CoV-2 (COVID-19) RNA ZAID+probe Ql (Unsp spec) [facility] Ketones Test strip Ql (U)Ord ered By: Arya Gannon on 02-14-2025 Ketones Ql (U) 5 mg/dl High Negative [facility] L501.4021on 02-14-2025 Trop T High Sen 35 ng/L High <=14 [facility] Comment on above: Performed By: #### L 501.4021 ####[facility] [address] [place], [address] Lactic Acidon 02-14-2025 Lactate [Moles/Vol] 1.3 mmol/L Normal 0.0-2.0 [facility] Comment on above: Order Comment: Y Performed By: #### L 503.6005, L300.4310, L100.0100, L300.3900, L500.4050, L501.2450 ####[facility] [address] [place], [address] Legionella Antigen Urineon 0 02-14-2025 LEGU Normal [facility] Comment on above: Performed By: #### M 300.4500, M300.4600 ####[facility] [address] [place], [address] Lipaseon 02-14-2025 Lipase [Catalytic activity/Vol] 40 U/L Normal 13-75 [facility] Comment on above: Result Comment: Plekali leigh note:LIPASE revised reference range effective 22.New Lipase methodology. Expected to produce lower valuesthan the previous assay method.NEW Reference Range: 13 - 75 U/L Performed By: #### L 503.6005, L300.4310, L100.0100, L300.3900, L500.4050, L501.2450 ####[facility] [address] [place], [address] M100.678on 02-14-2025 M100.678 Pending SARS-CoV-2 (COVID 19) Negative INFLUENZA A Negative INFLUENZA B Negative RSV PCR Negative Normal [facility] Comment on above: Performed By: #### M 100.678, L400.0001 ####[facility] [address] [place], [place], [id number] MCV (mean corpuscular volume ) determinationOrdered By: Arya Gannon on 02-14-2025 MCV (RBC) [Entitic vol] 88.6 fL 81-99 [facility] Mean corpuscular hemoglobin (MCH) determinationOrdered By: Trenton Teressa on 02-14-2025 MCH (RBC) [Entitic mass] 28.5 pg 27.0-32.0 [facility] Monocyte percentageOrdered B y: Arya Gannon on 02-14-2025 Monocytes/100 WBC (Bld) 12.2 % High 0-10 [facility] Mucus LM Ql (Urine sed)Order ed By: Arya Gannon on 02-14-2025 Mucus Ql (Urine sed) 0 SEEN /hpf [facility] Neutrophil percentageOrdered By: Trenton Teressa on 02-14-2025 Neutrophils/100 WBC (Bld) 74.1 % High 47-70 [facility] Nitrite Test strip Ql (U)Ord ered By: Arya Gannon on 02-14-2025 Nitrite Ql (U) Negative Negative [facility] No Panel InformationOrdered By: Arya Gannon on 02-14-2025 25 U/L <32 [facility] Partial Thromboplast Timeon 02-14-2025 aPTT Coag (Bld) [Time] 29.6 s Normal 24.1-36.2 [facility] Comment on above: Performed By: #### L 503.6005, L300.4310, L100.0100, L300.3900, L500.4050, L501.2450 ####[facility] [address] [place], [place], [id number] Platelet countOrdered By: Martín Gannon on 02-14-2025 Platelets (Bld) [#/Vol] 328 10*3/uL 150-450 [facility] Potassium measurement (mass/ volume)Ordered By: Arya Gannon on 02-14-2025 Potassium (Unsp spec) [Mass/Vol] 3.7 mmol/L 3.3-5.1 [facility] Protein Test strip Ql (U)Ord ered By: Arya Gannon on 02-14-2025 Protein Ql (U) Negative Negative [facility] Prothrombin Time w/INRon INR Coag (PPP) [Relative time] 0.9 {INR} Normal [facility] Comment on above: Performed By: #### L 503.6005, L300.4310, L100.0100, L300.3900, L500.4050, L501.2450 ####[facility] [address] [place], [place], [address] PT Coag (PPP) [Time] 12.7 s Normal 11.7-14.9 [facility] Comment on above: Performed By: #### L 503.6005, L300.4310, L100.0100, L300.3900, L500.4050, L501.2450 ####[facility] [address] [place], [place], [id number] Prothrombin timeOrdered By: Arya Gannon on 02-14-2025 PT Coag (PPP) [Time] 12.7 s 11.7-14.9 [facility] RBC Auto (Bld) [#/Vol]Ordere d By: Arya Gannon on 02-14-2025 RBC (Bld) [#/Vol] 4.04 10*6/uL Low 4.2-5.4 [facility] Serum creatinine measurement (mass/volume)Ordered By: Arya Gannon on 02-14-2025 Creatinine [Mass/Vol] 0.94 mg/dL 0.70-1.20 [facility] Serum globulin measurementOr dered By: Arya Gannon on 02-14-2025 Globulin (S) [Mass/Vol] 3.1 g/dL 2.2-4.2 [facility] Serum glucose measurement (m ass/volume)Ordered By: Arya Gannon on 02-14-2025 Glucose [Mass/Vol] 92 mg/dL 70-99 [facility] Serum or plasma alanine carpio otransferase (ALT) measurementOrdered By: Arya Gannon on 02-14-2025 ALT [Catalytic activity/Vol] 14 U/L <35 [facility] Serum or plasma albumin candice urement (mass/volume)Ordered By: Arya Stanley on 02-14-2025 Albumin [Mass/Vol] 3.7 g/dL 3.4-4.8 [facility] Serum or plasma albumin/glob ulin mass ratioOrdered By: Arya Gannon on 02-14-2025 Albumin/Globulin [Mass ratio] 1.2 {ratio} 0.9-2.4 [facility] Serum or plasma alkaline anthony sphatase measurementOrdered By: Arya Gannon on 02-14-2025 ALP [Catalytic activity/Vol] 150 U/L High 35-104 [facility] Serum or plasma calcium candice urement (mass/volume)Ordered By: Arya Stanley on 02-14-2025 Calcium [Mass/Vol] 8.9 mg/dL 7.6-11.0 [facility] Serum or plasma urea nitroge n measurement (mass/volume)Ordered By: Arya Gannon on 02-14-2025 Urea nitrogen [Mass/Vol] 18 mg/dL 4-19 [facility] Sodium levelOrdered By: Luis Angel Gannon on 02-14-2025 Sodium [Moles/Vol] 135 mmol/L 133-145 [facility] Squamous epithelial cells de tection in urine sediment by light microscopyOrdered By: Arya Gannon on 02-14-2025 Epithelial cells.squamous LM Ql (Urine sed) 0 SEEN /hpf 5-10 [facility] Strep pneumoniae Antig(UR,CS F)on 02-14-2025 STPAG Normal [facility] Comment on above: Performed By: #### M 300.4500, M300.4600 ####[facility] [address] [place], [address] Total proteinOrdered By: Ritchie Gannon on 02-14-2025 Protein [Mass/Vol] 6.9 g/dL 5.9-8.4 [facility] Troponin T HS 2 HRon 025 Trop T High Sen 32 ng/L High <=14 [facility] Comment on above: Performed By: #### L 499.0042 ####[facility] [address] [place], [address] Troponin T.cardiac [Mass/vol ume] in Serum or Plasma by High sensitivity methodOrdered By: Arya Gannon on 02-14-2025 Troponin T.cardiac High sensitivity method [Mass/Vol] 32 ng/L High <14 [facility] Troponin T.cardiac High sensitivity method [Mass/Vol] 35 ng/L High <14 [facility] Urinalysis, Completeon 02-14 WBC 0-5 SEEN Normal 0-5 [facility] Comment on above: Order Comment: CLEAN CATCH Performed By: #### M 100.678, L400.0001 ####[facility] [address] [place], [address] BACTERIA 0 SEEN Normal None Seen [facility] Comment on above: Order Comment: CLEAN CATCH Performed By: #### M 100.678, L400.0001 ####[facility] [address] [place], [address] EPI,SQUAMOUS 0 SEEN Normal 5-10 [facility] Comment on above: Order Comment: CLEAN CATCH Performed By: #### M 100.678, L400.0001 ####[facility] [address] [place], [address] Mucus Ql (Urine sed) 0 SEEN Normal [facility] Comment on above: Order Comment: CLEAN CATCH Performed By: #### M 100.678, L400.0001 ####[facility] [address] [place], [address] RBC 0 SEEN Normal 0-5 [facility] Comment on above: Order Comment: CLEAN CATCH Performed By: #### M 100.678, L400.0001 ####[facility] [address] [place], [address] Urine Legionella pneumophila antigen detectionOrdered By: Liudmila Morin on 02-14-2025 L. pneumophila Ag Ql (U) [facility] Urine clarityOrdered By: Ritchie Gannon on 02-14-2025 Clarity (U) Clear Clear [facility] Urine color determinationOrd ered By: Arya Gannon on 02-14-2025 Color (U) Yellow Yellow [facility] Urine glucose detectionOrder ed By: Arya Gannon on 02-14-2025 Glucose Ql (U) Normal mg/dl Normal [facility] Urine leukocyte esterase det ection by dipstickOrdered By: Arya Gannon on 02-14-2025 Leukocyte esterase Test strip Ql (U) 25 /ul High Negative [facility] Urine pHOrdered By: Arya Acosta on 02-14-2025 pH (U) 6.0 [pH] 5.0 - 8.0 [facility] Urine sediment bacteria coun t by microscopy (number/high power field)Ordered By: Arya Gannon on 02-14-2025 Bacteria LM.HPF (Urine sed) [#/Area] 0 /[HPF] None Seen [facility] Urine specific gravity measu rementOrdered By: Arya Gannon on 02-14-2025 Specific gravity (U) [Rel density] 1.015 1.002-1.03 0 [facility] Urine urobilinogen measureme ntOrdered By: Arya Gannon on 02-14-2025 Urobilinogen Ql (U) Normal mg/dl Normal [facility] White blood cell (WBC) count Ordered By: Arya Teressa on 02-14-2025 WBC (Bld) [#/Vol] 10.0 10*3/uL 4.4-11.0 [facility] White blood cell countOrdere d By: Arya Gannon on 02-14-2025 White blood cell count 0-5 SEEN /hpf 0-5 [facility] OPERATIVE PROCEDURESon 02-02 OPERATIVE PROCEDURES [facility] OPERATIVE REPORT NAME ACCOUNT SEX AGE ADMIT DISCHARGE PT MED. RECORD# NUMBER DATE DATE TYPE SAPNA BULLARD [id number] F [id number] 01/20/25 01/20/25 2 [id number] ROOM: [facility] DATE OF : 1940 DICTATING PHYSICIAN: Marcos White DATE OF PROCEDURE: January 20, 2025 SURGEON: Marcos White DO USED CAR MANAGER: None. ANESTHESIOLOGIST: ANESTHETIC: Local. PRE-PROCEDURE DIAGNOSIS: Lumbosacral [...] of 2 SAPNA BULLARD Operative Report SAPNA BULLRAD : 1940 condition. Dictated By: Marcos White DO 01/20/25 12:08 JOB #: [id number] Transcribed By: tim 01/20/25 13:35 Electronically signed by: E-SIGN: MARCOS WHITE 02/02/25 07:18 Page 2 of 2 SAPNA BULLARD Operative Report Normal [facility] Absolute lymphocyte countOrd ered By: Genevieve Wu on 01-30-2025 Lymphocytes Auto (Unsp spec) [#/Vol] 1.91 10*3/uL 0.83-4.51 [facility] Anion gap in Serum or Plasma Ordered By: Genevieve Wu on 01-30-2025 Anion gap [Moles/Vol] 11 mmol/L 5-15 [facility] Automated lymphocyte count a s percentage of total leukocytesOrdered By: Genevieve Wu on 01-30-2025 Lymphocytes/100 WBC Auto (Unsp spec) 20.1 % 19-41 [facility] BUN/creatinine ratioOrdered By: Genevieve Wu on 01-30-2025 Urea nitrogen/Creatinine [Mass ratio] 21.1 mg/mg High 10-20 [facility] Basophil percentageOrdered B y: Genevieve Wu on 01-30-2025 Basophils/100 WBC (Bld) 0.2 % 0-1 [facility] Carbon dioxide, total [Moles /volume] in Central venous bloodOrdered By: Genevieve uW on 01-30-2025 CO2 [Moles/Vol] 25.1 mmol/L 21.0-32.0 [facility] Chloride assayOrdered By: Abe Wu on 01-30-2025 Chloride [Moles/Vol] 106 mmol/L 98-108 [facility] Eosinophil percentageOrdered By: Genevieve Wu on 01-30-2025 Eosinophils/100 WBC (Bld) 1.9 % 0-5 [facility] Erythrocyte distribution wid th ratioOrdered By: Genevieve Wu on 01-30-2025 Erythrocyte distribution width (RBC) [Ratio] 16.2 % High 11.6-14.6 [facility] Erythrocyte distribution wid th standard deviationOrdered By: Genevieve Wu on 01-30-2025 Erythrocyte distribution width (RBC) [Ratio] 53.1 fl High 35.1-43.9 [facility] Glomerular filtration rate ( GFR) estimation/1.73 sq m using serum, plasma, or whole bOrdered By: Genevieve Wu on 01-30-2025 GFR/1.73 sq M.predicted among non-blacks MDRD (S/P/Bld) [Vol rate/Area] 63 mL/min/{1.73_m2} >60 [facility] Hematocrit Auto (Bld) [Volum e fraction]Ordered By: Genevieve Wu on 01-30-2025 Hematocrit (Bld) [Volume fraction] 34.7 % Low 37-47 [facility] Hemoglobin measurementOrdere d By: haseeb Wu on 01-30-2025 Hemoglobin (Bld) [Mass/Vol] 10.5 g/dL Low 12.0-15.0 [facility] Immature granulocytes/100 WB C Auto (Bld)Ordered By: Genevieve Wu on 01-30-2025 Immature granulocytes/100 WBC (Bld) 1.300 % High 0.0-0.9 [facility] MCV (mean corpuscular volume ) determinationOrdered By: Genevieve Wu on 01-30-2025 MCV (RBC) [Entitic vol] 91.3 fL 81-99 [facility] Mean corpuscular hemoglobin (MCH) determinationOrdered By: mihirphoenixsharon Wu on 01-30-2025 MCH (RBC) [Entitic mass] 27.6 pg 27.0-32.0 [facility] Monocyte percentageOrdered B y: Genevieve Wu on 01-30-2025 Monocytes/100 WBC (Bld) 10.3 % High 0-10 [facility] Neutrophil percentageOrdered By: mihirphoenixsharon Wu on 01-30-2025 Neutrophils/100 WBC (Bld) 66.2 % 47-70 [facility] Platelet countOrdered By: Abe mihirdion Wu on 01-30-2025 Platelets (Bld) [#/Vol] 331 10*3/uL 150-450 [facility] Potassium measurement (mass/ volume)Ordered By: Abemihirkarleysharon Blackjuanitadrew on 01-30-2025 Potassium (Unsp spec) [Mass/Vol] 4.2 mmol/L 3.3-5.1 [facility] RBC Auto (Bld) [#/Vol]Ordere d By: Genevieve Waynechey on 01-30-2025 RBC (Bld) [#/Vol] 3.80 10*6/uL Low 4.2-5.4 [facility] Serum creatinine measurement (mass/volume)Ordered By: Genevieve Blackjuanitadrew on 01-30-2025 Creatinine [Mass/Vol] 0.90 mg/dL 0.70-1.20 [facility] Serum glucose measurement (m ass/volume)Ordered By: Genevieve Wu on 01-30-2025 Glucose [Mass/Vol] 128 mg/dL High 70-99 [facility] Serum or plasma calcium candice urement (mass/volume)Ordered By: Abehaseeb Blackjuanitadrew on 01-30-2025 Calcium [Mass/Vol] 9.1 mg/dL 7.6-11.0 [facility] Serum or plasma urea nitroge n measurement (mass/volume)Ordered By: Abehaseeb Blackjuanitadrew on 01-30-2025 Urea nitrogen [Mass/Vol] 19 mg/dL 4-19 [facility] Sodium levelOrdered By: Abemihir dion Waynejuanitadrew on 01-30-2025 Sodium [Moles/Vol] 142 mmol/L 133-145 [facility] White blood cell (WBC) count Ordered By: Abehaseeb Blackjuanitadrew on 01-30-2025 WBC (Bld) [#/Vol] 9.5 10*3/uL 4.4-11.0 [facility] C-ARM USAGE 1 HOURon C-ARM USAGE 1 HOUR [place] [address] Patient: CAMPOS SAPNA Mcknight Phone#: : 1940 Age: 85 Gender: F Pt. Type: Out Account: [id number] Location: [id number] Ordering: MARCOS WHITE Exam Date: 01/20/2025/12:02 Family Phys: NICCI LEMUS Charge Code: 906441 Physician: Morrow Order #: [id number] Dose#: 1.85 mGy PROCEDURE: C-ARM USEAGE 1 HR COMPARISON: [facility], , C-ARM USEAGE 1 HR, 08/11/2024, 10:47. [...] on 01/20/2025 at 13:04 Approved by: Danitza Richarsdon MD on 01/20/2025 at 13:05 Normal [facility] Absolute lymphocyte countOrd ered By: Genevieve Wu on 01-02-2025 Lymphocytes Auto (Unsp spec) [#/Vol] 1.82 10*3/uL 0.83-4.51 [facility] Absolute neutrophil countOrd ered By: Genevieve Wu on 01-02-2025 Neutrophils (Bld) [#/Vol] 6.3 10*3/uL 2.0-7.7 [facility] Anion gap in Serum or Plasma Ordered By: Genevieve Wu on 01-02-2025 Anion gap [Moles/Vol] 16 mmol/L High 5-15 [facility] Automated lymphocyte count a s percentage of total leukocytesOrdered By: Genevieve Wu on 01-02-2025 Lymphocytes/100 WBC Auto (Unsp spec) 19.0 % - [facility] BUN/creatinine ratioOrdered By: Genevieve Wu on 01-02-2025 Urea nitrogen/Creatinine [Mass ratio] 18.7 mg/mg 10-20 [facility] Basophil percentageOrdered B y: Genevieve Wu on 07-21-2025 Basophils/100 WBC (Bld) 0.5 % 0-1 [facility] Bilirubin directOrdered By: Genevieve Wu on 01-02-2025 Bilirubin.direct [Mass/Vol] mg/dL 0.00-0.30 [facility] Bilirubin, totalOrdered By: Genevieve Wu on 01-02-2025 Bilirubin [Mass/Vol] 0.23 mg/dL 0.00-1.30 [facility] Calculated very low density lipoprotein (VLDL) cholesterol measurementOrdered By: Genevieve Wu on 01-02-2025 Calculated very low density lipoprotein (VLDL) cholesterol measurement 38 mg/dL 5-40 [facility] Carbon dioxide, total [Moles /volume] in Central venous bloodOrdered By: Genevieve Wu on 01-02-2025 CO2 [Moles/Vol] 21.7 mmol/L 21.0-32.0 [facility] Chloride assayOrdered By: Abe Wu on 01-02-2025 Chloride [Moles/Vol] 101 mmol/L 98-108 [facility] Eosinophil percentageOrdered By: Genevieve Wu on 01-02-2025 Eosinophils/100 WBC (Bld) 1.6 % 0-5 [facility] Erythrocyte distribution wid th ratioOrdered By: Genevieve Wu on 01-02-2025 Erythrocyte distribution width (RBC) [Ratio] 15.1 % High 11.6-14.6 [facility] Erythrocyte distribution wid th standard deviationOrdered By: Genevieve Wu on 01-02-2025 Erythrocyte distribution width (RBC) [Ratio] 49.0 fl High 35.1-43.9 [facility] Glomerular filtration rate ( GFR) estimation/1.73 sq m using serum, plasma, or whole bOrdered By: Genevieve Wu on 01-02-2025 GFR/1.73 sq M.predicted among non-blacks MDRD (S/P/Bld) [Vol rate/Area] 62 mL/min/{1.73_m2} >60 [facility] Comment on above: mL/min/1.73m2 CKD-EP I Creatinine Equation (2020) Hematocrit Auto (Bld) [Volum e fraction]Ordered By: Genevieve Wu on 01-02-2025 Hematocrit (Bld) [Volume fraction] 39.4 % 37-47 [facility] Hemoglobin measurementOrdere d By: Genevieve Wu on 01-02-2025 Hemoglobin (Bld) [Mass/Vol] 11.9 g/dL Low 12.0-15.0 [facility] Immature granulocytes/100 WB C Auto (Bld)Ordered By: Genevieve Wu on 01-02-2025 Immature granulocytes/100 WBC (Bld) 0.500 % 0.0-0.9 [facility] Comment on above: IG% - Immature Granu locytes (promyelocytes, myelocytes and metamyelocytes) > 1% indicates that a LEFT SHIFT is Present. LDL calc ser/plasOrdered By: Genevieve Wu on 01-02-2025 Cholesterol in LDL [Mass/Vol] 97 mg/dL [facility] Comment on above: Tbqbrvbwya=549-279 m g/dL & Higher Nilt=992 mg/dL or greater Laboratory - Chemistry and C hemistry - challengeOrdered By: Genevieve Wu on 01-02-2025 AST [Catalytic activity/Vol] 23 U/L <32 [facility] MCV (mean corpuscular volume ) determinationOrdered By: Genevieve Wu on 01-02-2025 MCV (RBC) [Entitic vol] 88.7 fL 81-99 [facility] Mean corpuscular hemoglobin (MCH) determinationOrdered By: Genevieve Wu on 01-02-2025 MCH (RBC) [Entitic mass] 26.8 pg Low 27.0-32.0 [facility] Mean corpuscular hemoglobin concentration (MCHC) determinationOrdered By: Genevieve Wu on 01-02-2025 MCHC (RBC) [Mass/Vol] 30.2 g/dL Low 32-36 [facility] Mean platelet volume determi nationOrdered By: Genevieve Wu on 01-02-2025 Platelet mean volume (Bld) [Entitic vol] 9.2 fL 6.2-12.0 [facility] Monocyte percentageOrdered B y: Genevieve Wu on 01-02-2025 Monocytes/100 WBC (Bld) 12.3 % High 0-10 [facility] Neutrophil percentageOrdered By: Genevieve Wu on 01-02-2025 Neutrophils/100 WBC (Bld) 66.1 % 47-70 [facility] No Panel InformationOrdered By: Genevieve Wu on 01-02-2025 23 U/L <32 [facility] Nucleated red blood cell per centageOrdered By: Genevieve Wu on 01-02-2025 Nucleated RBC/100 WBC (Bld) [Ratio] 0 % 0-5 [facility] Platelet countOrdered By: Abe Wu on 01-02-2025 Platelets (Bld) [#/Vol] 431 10*3/uL 150-450 [facility] Potassium measurement (mass/ volume)Ordered By: Genevieve Wu on 01-02-2025 Potassium (Unsp spec) [Mass/Vol] 3.8 mmol/L 3.3-5.1 [facility] RBC Auto (Bld) [#/Vol]Ordere d By: Genevieve Wu on 01-02-2025 RBC (Bld) [#/Vol] 4.44 10*6/uL 4.2-5.4 [facility] Screening total cholesterol/ high density lipoprotein (HDL) cholesterol ratioOrdered By: Genevieve Wu on 01-02-2025 Cholesterol.total/Cho lesterol in HDL [Mass ratio] 3.62 {ratio} [facility] Serum creatinine measurement (mass/volume)Ordered By: Genevieve Wu on 01-02-2025 Creatinine [Mass/Vol] 0.92 mg/dL 0.70-1.20 [facility] Serum globulin measurementOr dered By: Genevieve Wu on 01-02-2025 Globulin (S) [Mass/Vol] 3.6 g/dL 2.2-4.2 [facility] Serum glucose measurement (m ass/volume)Ordered By: Genevieve Wu on 01-02-2025 Glucose [Mass/Vol] 76 mg/dL 70-99 [facility] Serum or plasma alanine carpio otransferase (ALT) measurementOrdered By: Abehaseeb Blackjuanitadrew on 01-02-2025 ALT [Catalytic activity/Vol] 7 U/L <35 [facility] Serum or plasma albumin candice urement (mass/volume)Ordered By: Abehaseeb Blackjuanitadrew 01-02-2025 Albumin [Mass/Vol] 4.0 g/dL 3.4-4.8 [facility] Serum or plasma alkaline anthony sphatase measurementOrdered By: sharon Blackjuanitadrew 01-02-2025 ALP [Catalytic activity/Vol] 150 U/L High 35-104 [facility] Serum or plasma calcium candice urement (mass/volume)Ordered By: Salliesharon Blackjuanitadrew 01-02-2025 Calcium [Mass/Vol] 9.7 mg/dL 7.6-11.0 [facility] Serum or plasma cholesterol in HDL measurement (mass/volume)Ordered By: Abehaseeb Blackjuanitadrew 01-02-2025 Cholesterol in HDL [Mass/Vol] 52 mg/dL >40 [facility] Comment on above: National Cholesterol Education Program (NCEP) guidelines:<40 mg/dL: Low HDL-cholesterol (major risk factor for CHD)>= 60 mg/dL: High HDL-cholesterol (negative risk factor for CHD)HDL-cholesterol is affected by a number of factors, e.g. smoking, exercise, hormones, sex and age. Serum or plasma cholesterol measurement (mass/volume)Ordered By: Abehaseeb Wu 01-02-2025 Cholesterol [Mass/Vol] 187 mg/dL <201 [facility] Comment on above: Cholesterol level, D esirable <200 mg/dLBorderline high cholesterol 200-239 mg/dLHigh cholesterol >=240 mg/dLRecommendations of the NCEP Adult Treatment Panel for the following risk-cutoff thresholds for the [place] population. Serum or plasma urea nitroge n measurement (mass/volume)Ordered By: Genevieve Wu 01-02-2025 Urea nitrogen [Mass/Vol] 17 mg/dL 4-19 [facility] Sodium levelOrdered By: Abe seunnick Waynejuanitadrew 01-02-2025 Sodium [Moles/Vol] 139 mmol/L 133-145 [facility] Total proteinOrdered By: Garrydrew martin Jazmin on 01-02-2025 Protein [Mass/Vol] 7.6 g/dL 5.9-8.4 [facility] Triglycerides measurementOrd ered By: Genevieve Wu on 01-02-2025 Triglyceride [Mass/Vol] 192 mg/dL <199 [facility] Comment on above: The drugs N-Acetylcy steine and Metamizole may falsely depress this assay. Normal range: <150 mg/dLBorderline High: 150-199 mg/dLHigh: 200-499 mg/dLVery High: >500 mg/dL White blood cell (WBC) count Ordered By: Gerardokarleysharon Wu on 01-02-2025 WBC (Bld) [#/Vol] 9.6 10*3/uL 4.4-11.0 [facility] Pulmonary Visit Reporton Pulmonary Visit Report Normal [facility] Neurology Visit Reporton Neurology Visit Report Normal [facility] Absolute lymphocyte countOrd ered By: Gerardokarleysharon Blackjuanitadrew on 11-28-2024 Lymphocytes Auto (Unsp spec) [#/Vol] 2.10 10*3/uL 0.83-4.51 [facility] Absolute neutrophil countOrd ered By: Abemihirkarleysharon Blackjuanitadrew on 11-28-2024 Neutrophils (Bld) [#/Vol] 6.1 10*3/uL 2.0-7.7 [facility] Anion gap in Serum or Plasma Ordered By: Genevieve Wu on 11-28-2024 Anion gap [Moles/Vol] 14 mmol/L 5-15 [facility] Automated lymphocyte count a s percentage of total leukocytesOrdered By: Genevieve Wu on 11-28-2024 Lymphocytes/100 WBC Auto (Unsp spec) 22.2 % - [facility] BUN/creatinine ratioOrdered By: Abemihirkarleysharon Blackjuanitadrew on 11-28-2024 Urea nitrogen/Creatinine [Mass ratio] 14.9 mg/mg 10-20 [facility] Basophil percentageOrdered B y: Gerardokarleysharon Wu on 11-28-2024 Basophils/100 WBC (Bld) 0.7 % 0-1 [facility] Carbon dioxide, total [Moles /volume] in Central venous bloodOrdered By: Genevieve Wu on 11-28-2024 CO2 [Moles/Vol] 23.8 mmol/L 21.0-32.0 [facility] Chest without Contraston Chest without Contrast Normal [facility] Chloride assayOrdered By: Abe Wu on 11-28-2024 Chloride [Moles/Vol] 103 mmol/L 98-108 [facility] Eosinophil percentageOrdered By: Genevieve Wu on 11-28-2024 Eosinophils/100 WBC (Bld) 2.0 % 0-5 [facility] Erythrocyte distribution wid th ratioOrdered By: Genevieve Wu on 11-28-2024 Erythrocyte distribution width (RBC) [Ratio] 14.6 % 11.6-14.6 [facility] Erythrocyte distribution wid th standard deviationOrdered By: Genevieve Wu on 11-28-2024 Erythrocyte distribution width (RBC) [Ratio] 46.7 fl High 35.1-43.9 [facility] Glomerular filtration rate ( GFR) estimation/1.73 sq m using serum, plasma, or whole bOrdered By: Genevieve Wu on 11-28-2024 GFR/1.73 sq M.predicted among non-blacks MDRD (S/P/Bld) [Vol rate/Area] 57 mL/min/{1.73_m2} Low >60 [facility] Comment on above: mL/min/1.73m2 CKD-EP I Creatinine Equation (2020) Hematocrit Auto (Bld) [Volum e fraction]Ordered By: Genevieve Wu on 11-28-2024 Hematocrit (Bld) [Volume fraction] 40.5 % 37-47 [facility] Hemoglobin measurementOrdere d By: Genevieve Wu on 11-28-2024 Hemoglobin (Bld) [Mass/Vol] 12.3 g/dL 12.0-15.0 [facility] Immature granulocytes/100 WB C Auto (Bld)Ordered By: Genevieve Wu on 11-28-2024 Immature granulocytes/100 WBC (Bld) 0.400 % 0.0-0.9 [facility] Comment on above: IG% - Immature Granu locytes (promyelocytes, myelocytes and metamyelocytes) > 1% indicates that a LEFT SHIFT is Present. MCV (mean corpuscular volume ) determinationOrdered By: Genevieve Wu on 11-28-2024 MCV (RBC) [Entitic vol] 87.9 fL 81-99 [facility] Mean corpuscular hemoglobin (MCH) determinationOrdered By: Genevieve Wu on 11-28-2024 MCH (RBC) [Entitic mass] 26.7 pg Low 27.0-32.0 [facility] Mean corpuscular hemoglobin concentration (MCHC) determinationOrdered By: Genevieve Wu on 11-28-2024 MCHC (RBC) [Mass/Vol] 30.4 g/dL Low 32-36 [facility] Mean platelet volume determi nationOrdered By: Genevieve Wu on 11-28-2024 Platelet mean volume (Bld) [Entitic vol] 9.3 fL 6.2-12.0 [facility] Monocyte percentageOrdered B y: Genevieve Wu on 11-28-2024 Monocytes/100 WBC (Bld) 10.1 % High 0-10 [facility] Neutrophil percentageOrdered By: mihirphoenixsharon Wu on 11-28-2024 Neutrophils/100 WBC (Bld) 64.6 % 47-70 [facility] Nucleated red blood cell per centageOrdered By: Genevieve Wu on 11-28-2024 Nucleated RBC/100 WBC (Bld) [Ratio] 0 % 0-5 [facility] Platelet countOrdered By: Abe Wu on 11-28-2024 Platelets (Bld) [#/Vol] 415 10*3/uL 150-450 [facility] Potassium measurement (mass/ volume)Ordered By: Genevieve Wu on 11-28-2024 Potassium (Unsp spec) [Mass/Vol] 3.4 mmol/L 3.3-5.1 [facility] RBC Auto (Bld) [#/Vol]Ordere d By: Genevieve Wu on 11-28-2024 RBC (Bld) [#/Vol] 4.61 10*6/uL 4.2-5.4 [facility] Serum creatinine measurement (mass/volume)Ordered By: Genevieve Galavizdrew on 11-28-2024 Creatinine [Mass/Vol] 0.98 mg/dL 0.70-1.20 [facility] Serum glucose measurement (m ass/volume)Ordered By: Genevieve Waynejuanitadrew on 11-28-2024 Glucose [Mass/Vol] 95 mg/dL 70-99 [facility] Serum or plasma calcium candice urement (mass/volume)Ordered By: [facility] Ricasharon Blackdrew on 11-28-2024 Calcium [Mass/Vol] 9.5 mg/dL 7.6-11.0 [facility] Serum or plasma urea nitroge n measurement (mass/volume)Ordered By: [facility] Ricasharon Blackdrew on 11-28-2024 Urea nitrogen [Mass/Vol] 15 mg/dL 4-19 [facility] Sodium levelOrdered By: [facility] dion Wu on 11-28-2024 Sodium [Moles/Vol] 141 mmol/L 133-145 [facility] White blood cell (WBC) count Ordered By: Genevieve Wu on 11-28-2024 WBC (Bld) [#/Vol] 9.5 10*3/uL 4.4-11.0 [facility] Echocardiogram study reportO rdered By: Sharon Crouch on 11-09-2024 Study report [facility] [address] [place] [address] Echo Complete 11/08/24 0912 MR#: [id number] Acct: [id number] Name: SAPNA BULLARD Rep #:[id number] : [id number] 84 From: Sharon Crouch MD Attending Dr: Dr. Yunior Desai MD Status: REG CLI Ordering Dr: Yunior Desai MD Date: 11/08/24 Location: [facility] Sex: F C Admitted: Reason For Study [...] Physician: Genevieve Wu Performed By: Tanya Grigsby, RDCS, RVT 11/09/24 1034 Date _ Sharon Crouch MD CC: Dr. Genevieve Wu MD; Dr. Yunior Desai MD ~ Date Dictated: 11/08/24 0912 Date Transcribed: 11/09/24 1034 Staff Nurse [facility] Resource Team: Signed [facility] Work Phone: Echo Completeon 11-08-2024 Echo Complete Normal [facility] Absolute lymphocyte countOrd ered By: Genevieve Wu on 10-31-2024 Lymphocytes Auto (Unsp spec) [#/Vol] 1.57 10*3/uL 0.83-4.51 [facility] Absolute neutrophil countOrd ered By: Genevieve Wu on 10-31-2024 Neutrophils (Bld) [#/Vol] 5.6 10*3/uL 2.0-7.7 [facility] Anion gap in Serum or Plasma Ordered By: Genevieve Wu on 10-31-2024 Anion gap [Moles/Vol] 11 mmol/L 5-15 [facility] Automated lymphocyte count a s percentage of total leukocytesOrdered By: Genevieve Wu on 10-31-2024 Lymphocytes/100 WBC Auto (Unsp spec) 18.6 % Low 19-41 [facility] BUN/creatinine ratioOrdered By: Genevieve Wu on 10-31-2024 Urea nitrogen/Creatinine [Mass ratio] 17.8 mg/mg 10-20 [facility] Basophil percentageOrdered B y: Genevieve Wu on 10-31-2024 Basophils/100 WBC (Bld) 0.6 % 0-1 [facility] Carbon dioxide, total [Moles /volume] in Central venous bloodOrdered By: Genevieve Wu on 10-31-2024 CO2 [Moles/Vol] 25.5 mmol/L 21.0-32.0 [facility] Chloride assayOrdered By: Abe Wu on 10-31-2024 Chloride [Moles/Vol] 103 mmol/L 98-108 [facility] Eosinophil percentageOrdered By: Genevieve Wu on 10-31-2024 Eosinophils/100 WBC (Bld) 2.1 % 0-5 [facility] Erythrocyte distribution wid th ratioOrdered By: Genevieve Wu on 10-31-2024 Erythrocyte distribution width (RBC) [Ratio] 14.3 % 11.6-14.6 [facility] Erythrocyte distribution wid th standard deviationOrdered By: Genevieve Wu on 10-31-2024 Erythrocyte distribution width (RBC) [Ratio] 45.2 fl High 35.1-43.9 [facility] Glomerular filtration rate ( GFR) estimation/1.73 sq m using serum, plasma, or whole bOrdered By: Genevieve Wu on 10-31-2024 GFR/1.73 sq M.predicted among non-blacks MDRD (S/P/Bld) [Vol rate/Area] 57 mL/min/{1.73_m2} Low >60 [facility] Comment on above: mL/min/1.73m2 CKD-EP I Creatinine Equation (2020) Hematocrit Auto (Bld) [Volum e fraction]Ordered By: Gerardophoenixsharon Wu on 10-31-2024 Hematocrit (Bld) [Volume fraction] 36.3 % Low 37-47 [facility] Hemoglobin measurementOrdere d By: Genevieve Wu on 10-31-2024 Hemoglobin (Bld) [Mass/Vol] 11.3 g/dL Low 12.0-15.0 [facility] Immature granulocytes/100 WB C Auto (Bld)Ordered By: Genevieve Wu on 10-31-2024 Immature granulocytes/100 WBC (Bld) 0.500 % 0.0-0.9 [facility] Comment on above: IG% - Immature Granu locytes (promyelocytes, myelocytes and metamyelocytes) > 1% indicates that a LEFT SHIFT is Present. MCV (mean corpuscular volume ) determinationOrdered By: Genevieve Wu on 10-31-2024 MCV (RBC) [Entitic vol] 86.2 fL 81-99 [facility] Mean corpuscular hemoglobin (MCH) determinationOrdered By: mihirphoenixsharon Wu 10-31-2024 MCH (RBC) [Entitic mass] 26.8 pg Low 27.0-32.0 [facility] Mean corpuscular hemoglobin concentration (MCHC) determinationOrdered By: haseeb Wu 10-31-2024 MCHC (RBC) [Mass/Vol] 31.1 g/dL Low 32-36 [facility] Mean platelet volume determi nationOrdered By: Genevieve Wu on 10-31-2024 Platelet mean volume (Bld) [Entitic vol] 9.2 fL 6.2-12.0 [facility] Monocyte percentageOrdered B y: Genevieve Wu on 10-31-2024 Monocytes/100 WBC (Bld) 11.9 % High 0-10 [facility] Neutrophil percentageOrdered By: Genevieve Wu on 10-31-2024 Neutrophils/100 WBC (Bld) 66.3 % 47-70 [facility] Nucleated red blood cell per centageOrdered By: Genevieve Wu on 10-31-2024 Nucleated RBC/100 WBC (Bld) [Ratio] 0 % 0-5 [facility] Platelet countOrdered By: Abe Wu on 10-31-2024 Platelets (Bld) [#/Vol] 353 10*3/uL 150-450 [facility] Potassium measurement (mass/ volume)Ordered By: Genevieve Wu on 10-31-2024 Potassium (Unsp spec) [Mass/Vol] 4.1 mmol/L 3.3-5.1 [facility] RBC Auto (Bld) [#/Vol]Ordere d By: Genevieve Wu on 10-31-2024 RBC (Bld) [#/Vol] 4.21 10*6/uL 4.2-5.4 [facility] Serum creatinine measurement (mass/volume)Ordered By: Genevieve Wu on 10-31-2024 Creatinine [Mass/Vol] 0.99 mg/dL 0.70-1.20 [facility] Serum glucose measurement (m ass/volume)Ordered By: Genevieve Wu on 10-31-2024 Glucose [Mass/Vol] 92 mg/dL 70-99 [facility] Serum or plasma calcium candice urement (mass/volume)Ordered By: Genevieve Wu on 10-31-2024 Calcium [Mass/Vol] 9.1 mg/dL 7.6-11.0 [facility] Serum or plasma urea nitroge n measurement (mass/volume)Ordered By: Genevieve Wu on 10-31-2024 Urea nitrogen [Mass/Vol] 18 mg/dL 4-19 [facility] Sodium levelOrdered By: Gerardo dion Jazmin on 10-31-2024 Sodium [Moles/Vol] 139 mmol/L 133-145 [facility] White blood cell (WBC) count Ordered By: Genevieve Wu on 10-31-2024 WBC (Bld) [#/Vol] 8.5 10*3/uL 4.4-11.0 [facility] Cardiology Visit Reporton Cardiology Visit Report Normal [facility] Absolute lymphocyte countOrd ered By: Genevieve Wu on 10-03-2024 Lymphocytes Auto (Unsp spec) [#/Vol] 2.02 10*3/uL 0.83-4.51 [facility] Absolute neutrophil countOrd ered By: Genevieve Wu on 10-03-2024 Neutrophils (Bld) [#/Vol] 5.3 10*3/uL 2.0-7.7 [facility] Anion gap in Serum or Plasma Ordered By: Genevieve Wu on 10-03-2024 Anion gap [Moles/Vol] 11 mmol/L 5-15 [facility] Automated lymphocyte count a s percentage of total leukocytesOrdered By: Genevieve Wu on 10-03-2024 Lymphocytes/100 WBC Auto (Unsp spec) 23.5 % 19-41 [facility] BUN/creatinine ratioOrdered By: Genevieve Wu on 10-03-2024 Urea nitrogen/Creatinine [Mass ratio] 22.3 mg/mg High 10-20 [facility] Basophil percentageOrdered B y: Genevieve Wu on 10-03-2024 Basophils/100 WBC (Bld) 0.6 % 0-1 [facility] Bilirubin directOrdered By: Genevieve Wu on 10-03-2024 Bilirubin.direct [Mass/Vol] mg/dL 0.00-0.30 [facility] Bilirubin, totalOrdered By: Genevieve Wu on 10-03-2024 Bilirubin [Mass/Vol] 0.18 mg/dL 0.00-1.30 [facility] Carbon dioxide, total [Moles /volume] in Central venous bloodOrdered By: Genevieve Wu on 10-03-2024 CO2 [Moles/Vol] 28.4 mmol/L 21.0-32.0 [facility] Chloride assayOrdered By: Abe Wu on 10-03-2024 Chloride [Moles/Vol] 101 mmol/L 98-108 [facility] Eosinophil percentageOrdered By: Genevieve Wu on 10-03-2024 Eosinophils/100 WBC (Bld) 2.4 % 0-5 [facility] Erythrocyte distribution wid th ratioOrdered By: Genevieve Wu on 10-03-2024 Erythrocyte distribution width (RBC) [Ratio] 14.8 % High 11.6-14.6 [facility] Erythrocyte distribution wid th standard deviationOrdered By: Genevieve Wu on 10-03-2024 Erythrocyte distribution width (RBC) [Ratio] 47.3 fl High 35.1-43.9 [facility] Glomerular filtration rate ( GFR) estimation/1.73 sq m using serum, plasma, or whole bOrdered By: Genevieve Wu on 10-03-2024 GFR/1.73 sq M.predicted among non-blacks MDRD (S/P/Bld) [Vol rate/Area] 61 mL/min/{1.73_m2} >60 [facility] Comment on above: mL/min/1.73m2 CKD-EP I Creatinine Equation (2020) Hematocrit Auto (Bld) [Volum e fraction]Ordered By: Genevieve Wu on 10-03-2024 Hematocrit (Bld) [Volume fraction] 39.7 % 37-47 [facility] Hemoglobin measurementOrdere d By: Genevieve Wu on 10-03-2024 Hemoglobin (Bld) [Mass/Vol] 12.1 g/dL 12.0-15.0 [facility] Immature granulocytes/100 WB C Auto (Bld)Ordered By: Genevieve Wu 10-03-2024 Immature granulocytes/100 WBC (Bld) 0.800 % 0.0-0.9 [facility] Comment on above: IG% - Immature Granu locytes (promyelocytes, myelocytes and metamyelocytes) > 1% indicates that a LEFT SHIFT is Present. Laboratory - Chemistry and C hemistry - challengeOrdered By: Genevieve Wu on 10-03-2024 AST [Catalytic activity/Vol] 22 U/L <32 [facility] MCV (mean corpuscular volume ) determinationOrdered By: Genevieve Wu on 10-03-2024 MCV (RBC) [Entitic vol] 87.3 fL 81-99 [facility] Mean corpuscular hemoglobin (MCH) determinationOrdered By: [facility] Ricasharon Wu on 10-03-2024 MCH (RBC) [Entitic mass] 26.6 pg Low 27.0-32.0 [facility] Mean corpuscular hemoglobin concentration (MCHC) determinationOrdered By: haseeb Wu on 10-03-2024 MCHC (RBC) [Mass/Vol] 30.5 g/dL Low 32-36 [facility] Mean platelet volume determi nationOrdered By: Genevieve Wu on 10-03-2024 Platelet mean volume (Bld) [Entitic vol] 9.1 fL 6.2-12.0 [facility] Monocyte percentageOrdered B y: Genevieve Wu on 10-03-2024 Monocytes/100 WBC (Bld) 11.4 % High 0-10 [facility] Neutrophil percentageOrdered By: [facility] Ricasharon Wu on 10-03-2024 Neutrophils/100 WBC (Bld) 61.3 % 47-70 [facility] Nucleated red blood cell per centageOrdered By: [facility] Wu on 10-03-2024 Nucleated RBC/100 WBC (Bld) [Ratio] 0 % 0-5 [facility] Platelet countOrdered By: Abe mihirdion Wu on 10-03-2024 Platelets (Bld) [#/Vol] 456 10*3/uL High 150-450 [facility] Potassium measurement (mass/ volume)Ordered By: Genevieve Wu on 10-03-2024 Potassium (Unsp spec) [Mass/Vol] 4.1 mmol/L 3.3-5.1 [facility] RBC Auto (Bld) [#/Vol]Ordere d By: Genevieve Wu on 10-03-2024 RBC (Bld) [#/Vol] 4.55 10*6/uL 4.2-5.4 [facility] Serum creatinine measurement (mass/volume)Ordered By: Genevieve Wu on 10-03-2024 Creatinine [Mass/Vol] 0.93 mg/dL 0.70-1.20 [facility] Serum globulin measurementOr dered By: Genevieve Wu on 10-03-2024 Globulin (S) [Mass/Vol] 3.5 g/dL 2.2-4.2 [facility] Serum glucose measurement (m ass/volume)Ordered By: Genevieve Wu on 10-03-2024 Glucose [Mass/Vol] 95 mg/dL 70-99 [facility] Serum or plasma alanine carpio otransferase (ALT) measurementOrdered By: Genevieve Wu on 10-03-2024 ALT [Catalytic activity/Vol] 16 U/L <35 [facility] Serum or plasma albumin candice urement (mass/volume)Ordered By: Genevieve Wu on 10-03-2024 Albumin [Mass/Vol] 3.9 g/dL 3.4-4.8 [facility] Serum or plasma alkaline anthony sphatase measurementOrdered By: Genevieve Wu 10-03-2024 ALP [Catalytic activity/Vol] 138 U/L High 35-104 [facility] Serum or plasma calcium candice urement (mass/volume)Ordered By: Genevieve Wu on 10-03-2024 Calcium [Mass/Vol] 10.0 mg/dL 7.6-11.0 [facility] Serum or plasma urea nitroge n measurement (mass/volume)Ordered By: Genevieve Wu on 10-03-2024 Urea nitrogen [Mass/Vol] 21 mg/dL High 4-19 [facility] Sodium levelOrdered By: Gerardo Wu on 10-03-2024 Sodium [Moles/Vol] 141 mmol/L 133-145 [facility] Total proteinOrdered By: Garrydrew martin Waynejuanitadrew on 10-03-2024 Protein [Mass/Vol] 7.4 g/dL 5.9-8.4 [facility] White blood cell (WBC) count Ordered By: Gerardodino Waynejuanitadrew on 10-03-2024 WBC (Bld) [#/Vol] 8.6 10*3/uL 4.4-11.0 [facility] Pulmonary Visit Reporton Pulmonary Visit Report Normal [facility] Absolute lymphocyte countOrd ered By: Gerardokarleysharon Blackjuanitadrew on 08-29-2024 Lymphocytes Auto (Unsp spec) [#/Vol] 1.30 10*3/uL 0.83-4.51 [facility] Absolute neutrophil countOrd ered By: Gerardokarleysharon Blackjuanitadrew on 08-29-2024 Neutrophils (Bld) [#/Vol] 5.4 10*3/uL 2.0-7.7 [facility] Anion gap in Serum or Plasma Ordered By: Gerardokarleysharon Wu on 08-29-2024 Anion gap [Moles/Vol] 9 mmol/L 5-15 [facility] Automated lymphocyte count a s percentage of total leukocytesOrdered By: Gerardokarleysharon Blackjuanitadrew on 08-29-2024 Lymphocytes/100 WBC Auto (Unsp spec) 16.7 % Low 19-41 [facility] BUN/creatinine ratioOrdered By: Gerardokarleysharon Blackjuanitadrew on 08-29-2024 Urea nitrogen/Creatinine [Mass ratio] 20.0 mg/mg 10-20 [facility] Basophil percentageOrdered B y: Gerardokarleysharon Blackjuanitadrew on 08-29-2024 Basophils/100 WBC (Bld) 0.6 % 0-1 [facility] Carbon dioxide, total [Moles /volume] in Central venous bloodOrdered By: Gerardokarleysharon Wu on 08-29-2024 CO2 [Moles/Vol] 27.1 mmol/L 21.0-32.0 [facility] Chloride assayOrdered By: Abe mihirdion Wu on 08-29-2024 Chloride [Moles/Vol] 101 mmol/L 98-108 [facility] Eosinophil percentageOrdered By: Genevieve Wu on 08-29-2024 Eosinophils/100 WBC (Bld) 2.2 % 0-5 [facility] Erythrocyte distribution wid th ratioOrdered By: Genevieve Wu on 08-29-2024 Erythrocyte distribution width (RBC) [Ratio] 16.1 % High 11.6-14.6 [facility] Erythrocyte distribution wid th standard deviationOrdered By: Genevieve Wu on 08-29-2024 Erythrocyte distribution width (RBC) [Ratio] 50.8 fl High 35.1-43.9 [facility] Glomerular filtration rate ( GFR) estimation/1.73 sq m using serum, plasma, or whole bOrdered By: Genevieve Wu on 08-29-2024 GFR/1.73 sq M.predicted among non-blacks MDRD (S/P/Bld) [Vol rate/Area] 64 mL/min/{1.73_m2} >60 [facility] Comment on above: mL/min/1.73m2 CKD-EP I Creatinine Equation (2020) Hematocrit Auto (Bld) [Volum e fraction]Ordered By: Genevieve Wu on 08-29-2024 Hematocrit (Bld) [Volume fraction] 38.6 % 37-47 [facility] Hemoglobin measurementOrdere d By: Genevieve Wu on 08-29-2024 Hemoglobin (Bld) [Mass/Vol] 11.9 g/dL Low 12.0-15.0 [facility] Immature granulocytes/100 WB C Auto (Bld)Ordered By: Genevieve Wu 08-29-2024 Immature granulocytes/100 WBC (Bld) 0.500 % 0.0-0.9 [facility] Comment on above: IG% - Immature Granu locytes (promyelocytes, myelocytes and metamyelocytes) > 1% indicates that a LEFT SHIFT is Present. MCV (mean corpuscular volume ) determinationOrdered By: Genevieve Wu on 08-29-2024 MCV (RBC) [Entitic vol] 86.2 fL 81-99 [facility] Mean corpuscular hemoglobin (MCH) determinationOrdered By: Genevieve Wu 08-29-2024 MCH (RBC) [Entitic mass] 26.6 pg Low 27.0-32.0 [facility] Mean corpuscular hemoglobin concentration (MCHC) determinationOrdered By: Genevieve Wu on 08-29-2024 MCHC (RBC) [Mass/Vol] 30.8 g/dL Low 32-36 [facility] Mean platelet volume determi nationOrdered By: Genevieve Wu on 08-29-2024 Platelet mean volume (Bld) [Entitic vol] 8.9 fL 6.2-12.0 [facility] Monocyte percentageOrdered B y: Genevieve Wu on 08-29-2024 Monocytes/100 WBC (Bld) 11.2 % High 0-10 [facility] Neutrophil percentageOrdered By: Genevieve Wu on 08-29-2024 Neutrophils/100 WBC (Bld) 68.8 % 47-70 [facility] Nucleated red blood cell per centageOrdered By: Genevieve Wu on 08-29-2024 Nucleated RBC/100 WBC (Bld) [Ratio] 0 % 0-5 [facility] Platelet countOrdered By: Abe Wu on 08-29-2024 Platelets (Bld) [#/Vol] 389 10*3/uL 150-450 [facility] Potassium measurement (mass/ volume)Ordered By: Genevieve Wu on 08-29-2024 Potassium (Unsp spec) [Mass/Vol] 4.1 mmol/L 3.3-5.1 [facility] RBC Auto (Bld) [#/Vol]Ordere d By: Genevieve Wu on 08-29-2024 RBC (Bld) [#/Vol] 4.48 10*6/uL 4.2-5.4 [facility] Serum creatinine measurement (mass/volume)Ordered By: Genevieve Wu on 08-29-2024 Creatinine [Mass/Vol] 0.90 mg/dL 0.70-1.20 [facility] Serum glucose measurement (m ass/volume)Ordered By: Genevieve Wu on 08-29-2024 Glucose [Mass/Vol] 87 mg/dL 70-99 [facility] Serum or plasma calcium candice urement (mass/volume)Ordered By: Genevieve Wu on 08-29-2024 Calcium [Mass/Vol] 9.6 mg/dL 7.6-11.0 [facility] Serum or plasma urea nitroge n measurement (mass/volume)Ordered By: Genevieve Wu on 08-29-2024 Urea nitrogen [Mass/Vol] 18 mg/dL 4-19 [facility] Sodium levelOrdered By: Gerardo Wu on 08-29-2024 Sodium [Moles/Vol] 138 mmol/L 133-145 [facility] White blood cell (WBC) count Ordered By: Genevieve Wu on 08-29-2024 WBC (Bld) [#/Vol] 7.8 10*3/uL 4.4-11.0 [facility] OPERATIVE PROCEDURESon 08-12 OPERATIVE PROCEDURES [facility] OPERATIVE REPORT NAME ACCOUNT SEX AGE ADMIT DISCHARGE PT MED. RECORD# NUMBER DATE DATE TYPE SAPNA BULLARD [id number] F 84 08/11/24 2 [id number] ROOM: DATE OF : 1940 DICTATING PHYSICIAN: Marcos White DATE OF PROCEDURE: August 11, 2024 SURGEON: Marcos White DO USED CAR MANAGER: None. ANESTHESIA: Local. PREPROCEDURE DIAGNOSES: 1. Lumbosacral [...] Marcos White DO 08/11/24 10:54 JOB #: [id number] Transcribed By: am 08/11/24 11:28 Electronically signed by: E-SIGN: MARCOS WHITE 08/12/24 14:42 Page 2 of 2 SAPNA BULLARD Operative Report Normal [facility] C-ARM USAGE 1 HOURon 025 C-ARM USAGE 1 HOUR [place] [address] Patient: SAPNA BULLARD. Phone#: : [phone] Age: 84 Gender: F Pt. Type: Out Account: [id number] Location: [id number] Ordering: MARCOS WHITE Exam Date: 08/11/2024/10:47 Family Phys: NICCI LEVINERADHA Charge Code: 123156 Physician: Morrow Order #: [id number] Dose#: 1.12 mGy PROCEDURE: C-ARM USEAGE 1 HR COMPARISON: [facility], C-ARM USEAGE 1 HR, 02/05/2024, 11:01. INDICATIONS: [...] Richardson MD on 08/11/2024 at 12:24 Normal [facility] Chest WITH Contraston 2024 Chest WITH Contrast Normal [facility] Absolute lymphocyte countOrd ered By: Genevieve Wu on 08-01-2024 Lymphocytes Auto (Unsp spec) [#/Vol] 1.98 10*3/uL 0.83-4.51 [facility] Absolute neutrophil countOrd ered By: Genevieve Wu on 08-01-2024 Neutrophils (Bld) [#/Vol] 4.1 10*3/uL 2.0-7.7 [facility] Automated lymphocyte count a s percentage of total leukocytesOrdered By: Genevieve Wu on 08-01-2024 Lymphocytes/100 WBC Auto (Unsp spec) 25.7 % 19-41 [facility] Basophil percentageOrdered B y: Genevieve Wu on 08-01-2024 Basophils/100 WBC (Bld) 0.9 % 0-1 [facility] Blood urea nitrogen (BUN)/cr eatinine ratioOrdered By: Genevieve Wu on 08-01-2024 Urea nitrogen/Creatinine [Mass ratio] 20.6 mg/mg High 10-20 [facility] Carbon dioxide measurementOr dered By: haseeb Wu on 08-01-2024 CO2 [Moles/Vol] 32.0 mmol/L 21.0-32.0 [facility] Chloride measurementOrdered By: haseeb Wu on 08-01-2024 Chloride [Moles/Vol] 101 mmol/L 98-107 [facility] Eosinophil percentageOrdered By: Genevieve Wu on 08-01-2024 Eosinophils/100 WBC (Bld) 4.8 % 0-5 [facility] Erythrocyte distribution wid th ratioOrdered By: haseeb Wu on 08-01-2024 Erythrocyte distribution width (RBC) [Ratio] 15.6 % High 11.6-14.6 [facility] Erythrocyte distribution wid th standard deviationOrdered By: haseeb Wu on 08-01-2024 Erythrocyte distribution width (RBC) [Ratio] 49.8 fl High 35.1-43.9 [facility] Glomerular filtration rate ( GFR) estimationOrdered By: mihirphoenixsharon Wu on 08-01-2024 GFR/1.73 sq M.predicted among non-blacks MDRD (S/P/Bld) [Vol rate/Area] 55 mL/min/{1.73_m2} Low >60 [facility] Comment on above: Non- GFR Calc Glucose measurementOrdered B y: Genevieve Wu on 08-01-2024 Glucose [Mass/Vol] 85 mg/dL 74-106 [facility] Hematocrit Auto (Bld) [Volum e fraction]Ordered By: mihirphoenixsharon Wu on 08-01-2024 Hematocrit (Bld) [Volume fraction] 39.0 % 37-47 [facility] Hemoglobin measurementOrdere d By: Genevieve Wu on 08-01-2024 Hemoglobin (Bld) [Mass/Vol] 11.4 g/dL Low 12.0-15.0 [facility] Immature granulocytes/100 WB C Auto (Bld)Ordered By: haseeb Blackdrew on 08-01-2024 Immature granulocytes/100 WBC (Bld) 0.800 % 0.0-0.9 [facility] Comment on above: IG% - Immature Granu locytes (promyelocytes, myelocytes and metamyelocytes) > 1% indicates that a LEFT SHIFT is Present. MCV (mean corpuscular volume ) determinationOrdered By: Genevieve Wu on 08-01-2024 MCV (RBC) [Entitic vol] 87.4 fL 81-99 [facility] Mean corpuscular hemoglobin (MCH) determinationOrdered By: [facility] Ricasharon Blackdrew 08-01-2024 MCH (RBC) [Entitic mass] 25.6 pg Low 27.0-32.0 [facility] Mean corpuscular hemoglobin concentration (MCHC) determinationOrdered By: [facility] Ricasharon Blackdrew 08-01-2024 MCHC (RBC) [Mass/Vol] 29.2 g/dL Low 32-36 [facility] Mean platelet volume determi nationOrdered By: Genevieve Wu on 08-01-2024 Platelet mean volume (Bld) [Entitic vol] 9.0 fL 6.2-12.0 [facility] Monocyte percentageOrdered B y: Genevieve Wu on 08-01-2024 Monocytes/100 WBC (Bld) 14.2 % High 0-10 [facility] Neutrophil percentageOrdered By: Genevieve Wu on 08-01-2024 Neutrophils/100 WBC (Bld) 53.6 % 47-70 [facility] Nucleated red blood cell per centageOrdered By: Genevieve Wu on 08-01-2024 Nucleated RBC/100 WBC (Bld) [Ratio] 0 % 0-5 [facility] Platelet countOrdered By: Abe Wu on 08-01-2024 Platelets (Bld) [#/Vol] 408 10*3/uL 150-450 [facility] Potassium measurementOrdered By: Genevieve Wu on 08-01-2024 Potassium [Moles/Vol] 4.1 mmol/L 3.5-5.1 [facility] RBC Auto (Bld) [#/Vol]Ordere d By: Genevieve Wu on 08-01-2024 RBC (Bld) [#/Vol] 4.46 10*6/uL 4.2-5.4 [facility] Serum anion gap measurementO rdered By: Genevieve Wu on 08-01-2024 Anion gap [Moles/Vol] 6 mmol/L 5-15 [facility] Serum or plasma calcium candice urement (mass/volume)Ordered By: Genevieve Wu on 08-01-2024 Calcium [Mass/Vol] 10.1 mg/dL 8.5-10.1 [facility] Serum or plasma creatinine m easurement (mass/volume)Ordered By: Genevieve Wu on 08-01-2024 Creatinine [Mass/Vol] 1.02 mg/dL 0.55-1.02 [facility] Comment on above: The validity of the calculated GFR & GFRAA in patients over 70 years has not been determined. Clinical correlation is essential. Serum or plasma urea nitroge n measurement (mass/volume)Ordered By: Genevieve Wu on 08-01-2024 Urea nitrogen [Mass/Vol] 21 mg/dL High 7-18 [facility] Sodium levelOrdered By: Gerardo kohlinick Jazmin on 08-01-2024 Sodium [Moles/Vol] 139 mmol/L 136-145 [facility] White blood cell (WBC) count Ordered By: Genevieve Wu on 08-01-2024 WBC (Bld) [#/Vol] 7.7 10*3/uL 4.4-11.0 [facility] Neurology Visit Reporton Neurology Visit Report Normal [facility] Absolute lymphocyte countOrd ered By: Genevieve Wu on 06-30-2024 Lymphocytes Auto (Unsp spec) [#/Vol] 1.62 10*3/uL 0.83-4.51 [facility] Absolute neutrophil countOrd ered By: Genevieve Wu on 06-30-2024 Neutrophils (Bld) [#/Vol] 4.2 10*3/uL 2.0-7.7 [facility] Automated lymphocyte count a s percentage of total leukocytesOrdered By: Genevieve Wu on 06-30-2024 Lymphocytes/100 WBC Auto (Unsp spec) 22.7 % 19-41 [facility] Basophil percentageOrdered B y: Genevieve Wu on 06-30-2024 Basophils/100 WBC (Bld) 0.6 % 0-1 [facility] Blood urea nitrogen (BUN)/cr eatinine ratioOrdered By: Genevieve Wu on 06-30-2024 Urea nitrogen/Creatinine [Mass ratio] 27.1 mg/mg High 10-20 [facility] Carbon dioxide measurementOr dered By: Genevieve Wu on 06-30-2024 CO2 [Moles/Vol] 29.0 mmol/L 21.0-32.0 [facility] Chloride measurementOrdered By: Genevieve Wu on 06-30-2024 Chloride [Moles/Vol] 106 mmol/L 98-107 [facility] Eosinophil percentageOrdered By: haseeb Wu on 06-30-2024 Eosinophils/100 WBC (Bld) 3.2 % 0-5 [facility] Erythrocyte distribution wid th ratioOrdered By: Genevieve Wu on 06-30-2024 Erythrocyte distribution width (RBC) [Ratio] 15.3 % High 11.6-14.6 [facility] Erythrocyte distribution wid th standard deviationOrdered By: [facility] Ricasharon Wu on 06-30-2024 Erythrocyte distribution width (RBC) [Ratio] 47.4 fl High 35.1-43.9 [facility] Glomerular filtration rate ( GFR) estimationOrdered By: mihirphoenixsharon Wu on 06-30-2024 GFR/1.73 sq M.predicted among non-blacks MDRD (S/P/Bld) [Vol rate/Area] 65 mL/min/{1.73_m2} >60 [facility] Comment on above: Non- GFR Calc Glucose measurementOrdered B y: Genevieve Wu on 06-30-2024 Glucose [Mass/Vol] 87 mg/dL 74-106 [facility] Hematocrit Auto (Bld) [Volum e fraction]Ordered By: haseeb Wu on 06-30-2024 Hematocrit (Bld) [Volume fraction] 32.5 % Low 37-47 [facility] Hemoglobin measurementOrdere d By: Genevieve Wu on 06-30-2024 Hemoglobin (Bld) [Mass/Vol] 9.6 g/dL Low 12.0-15.0 [facility] Immature granulocytes/100 WB C Auto (Bld)Ordered By: Genevieve Wu on 06-30-2024 Immature granulocytes/100 WBC (Bld) 0.800 % 0.0-0.9 [facility] Comment on above: IG% - Immature Granu locytes (promyelocytes, myelocytes and metamyelocytes) > 1% indicates that a LEFT SHIFT is Present. MCV (mean corpuscular volume ) determinationOrdered By: Genevieve Wu on 06-30-2024 MCV (RBC) [Entitic vol] 87.1 fL 81-99 [facility] Mean corpuscular hemoglobin (MCH) determinationOrdered By: Genevieve Wu on 06-30-2024 MCH (RBC) [Entitic mass] 25.7 pg Low 27.0-32.0 [facility] Mean corpuscular hemoglobin concentration (MCHC) determinationOrdered By: Genevieve Wu on 06-30-2024 MCHC (RBC) [Mass/Vol] 29.5 g/dL Low 32-36 [facility] Mean platelet volume determi nationOrdered By: Genevieve Wu on 06-30-2024 Platelet mean volume (Bld) [Entitic vol] 8.8 fL 6.2-12.0 [facility] Monocyte percentageOrdered B y: Genevieve Wu on 06-30-2024 Monocytes/100 WBC (Bld) 13.4 % High 0-10 [facility] Neutrophil percentageOrdered By: Genevieve Wu on 06-30-2024 Neutrophils/100 WBC (Bld) 59.3 % 47-70 [facility] Nucleated red blood cell per centageOrdered By: Genevieve Wu on 06-30-2024 Nucleated RBC/100 WBC (Bld) [Ratio] 0 % 0-5 [facility] Platelet countOrdered By: Abe Wu on 06-30-2024 Platelets (Bld) [#/Vol] 420 10*3/uL 150-450 [facility] Potassium measurementOrdered By: Genevieve Wu on 06-30-2024 Potassium [Moles/Vol] 4.3 mmol/L 3.5-5.1 [facility] RBC Auto (Bld) [#/Vol]Ordere d By: Genevieve Wu on 06-30-2024 RBC (Bld) [#/Vol] 3.73 10*6/uL Low 4.2-5.4 [facility] Serum anion gap measurementO rdered By: Genevieve Wu on 06-30-2024 Anion gap [Moles/Vol] 5 mmol/L 5-15 [facility] Serum or plasma calcium candice urement (mass/volume)Ordered By: Genevieve Wu on 06-30-2024 Calcium [Mass/Vol] 9.2 mg/dL 8.5-10.1 [facility] Serum or plasma creatinine m easurement (mass/volume)Ordered By: Genevieve Wu on 06-30-2024 Creatinine [Mass/Vol] 0.89 mg/dL 0.55-1.02 [facility] Comment on above: The validity of the calculated GFR & GFRAA in patients over 70 years has not been determined. Clinical correlation is essential. Serum or plasma urea nitroge n measurement (mass/volume)Ordered By: Genevieve Wu on 06-30-2024 Urea nitrogen [Mass/Vol] 24 mg/dL High 7-18 [facility] Sodium levelOrdered By: Gerardo dion Jazmin on 06-30-2024 Sodium [Moles/Vol] 140 mmol/L 136-145 [facility] White blood cell (WBC) count Ordered By: Gerardophoenixsharon Blackjuanitadrew on 06-30-2024 WBC (Bld) [#/Vol] 7.2 10*3/uL 4.4-11.0 [facility] ANCAon 06-16-2024 Atypical pANCA <1:20 Normal Neg:<1:20 [facility] Comment on above: Order Comment: PT. R EFUSED BLOOD DRAW. SON ASKED IF ID COME BACK LATER. Result Comment: The atypical pANCA pattern has been observed in asignificant percentage of patients with ulcerative colitis,primary sclerosing cholangitis and autoimmune hepatitis. Performed By: #### L 4600.0100, L505.7010, L3100.5450, L3300.1200, L3500.3600 ####[facility] [address] [place], [address] Cytoplasmic Ab <1:20 Normal Neg:<1:20 [facility] Comment on above: Order Comment: PT. R EFUSED BLOOD DRAW. SON ASKED IF ID COME BACK LATER. Performed By: #### L 4600.0100, L505.7010, L3100.5450, L3300.1200, L3500.3600 ####[facility] [address] [place], [address] Perinuclear Ab. <1:20 Normal Neg:<1:20 [facility] Comment on above: Order Comment: PT. R [...] up testing of positive sera with both MS-3 and MPO-ANCA enzyme immunoassays. As many as 5% serumsamples are positive only by EIA. Ref. AM J Clin [id number];111:507-513. Performed By: #### L 4600.0100, L505.7010, L3100.5450, L3300.1200, L3500.3600 ####[facility] [address] [place], [address] Aspergillus Antibodieson Asp. flavus Negative Normal Neg:<1:1 [facility] Comment on above: Order Comment: PT. R EFUSED BLOOD DRAW. SON ASKED IF ID COME BACK LATER. Performed By: #### L 4600.0100, L505.7010, L3100.5450, L3300.1200, L3500.3600 ####[facility] [address] [place], [place], [id number] Asp. fumigatus Negative Normal Neg:<1:1 [facility] Comment on above: Order Comment: PT. R EFUSED BLOOD DRAW. SON ASKED IF ID COME BACK LATER. Performed By: #### L 4600.0100, L505.7010, L3100.5450, L3300.1200, L3500.3600 ####[facility] [address] [place], [place], [id number] Asp. niger Negative Normal Neg:<1:1 [facility] Comment on above: Order Comment: PT. R EFUSED BLOOD DRAW. SON ASKED IF ID COME BACK LATER. Performed By: #### L 4600.0100, L505.7010, L3100.5450, L3300.1200, L3500.3600 ####[facility] [address] [place], [address] CCP IgG Antibodieson 025 CCP IgG Ab. 8 units Normal 0-19 [facility] Comment on above: Order Comment: PT. R EFUSED BLOOD DRAW. SON ASKED IF ID COME BACK LATER. Result Comment: Nega tive <20 Weak positive 20 - 39 Moderate positive 40 - 59 Strong positive >59Performed at: [facility] [email or web address] [id number] [place], [place] [id number] Director: Curtis Rubio PhD, Phone: [phone] at: [facility] [employer] [id number] Director: Angie Moulton MD, Phone: [phone] Performed By: #### L 4600.0100, L505.7010, L3100.5450, L3300.1200, L3500.3600 ####[facility] [address] [place], [address] Basic Metabolic Profile (BMP )on 06-15-2024 BUN Normal 7-18 [facility] Comment on above: Result Comment: Canc elled via OM: Order cancelled - Patient discharged Performed By: #### L 100.0100, L500.2500 ####[facility] [address] [place], [address] BUN/CRE Normal 10-20 [facility] Comment on above: Result Comment: Canc elled via OM: Order cancelled - Patient discharged Performed By: #### L 100.0100, L500.2500 ####[facility] [address] [place], [address] CA,Total Normal 8.5-10.1 [facility] Comment on above: Result Comment: Canc elled via OM: Order cancelled - Patient discharged Performed By: #### L 100.0100, L500.2500 ####[facility] [address] [place], [address] CL Normal 98-107 [facility] Comment on above: Result Comment: Canc elled via OM: Order cancelled - Patient discharged Performed By: #### L 100.0100, L500.2500 ####[facility] [address] [place], [address] CO2 Normal 21.0-32.0 [facility] Comment on above: Result Comment: Canc elled via OM: Order cancelled - Patient discharged Performed By: #### L 100.0100, L500.2500 ####[facility] [address] [place], [address] CREAT,SERUM Normal 0.55-1.02 [facility] Comment on above: Result Comment: Canc elled via OM: Order cancelled - Patient discharged Performed By: #### L 100.0100, L500.2500 ####[facility] [address] [place], [address] EST GFR Normal >60 [facility] Comment on above: Result Comment: Canc elled via OM: Order cancelled - Patient discharged Performed By: #### L 100.0100, L500.2500 ####[facility] [address] [place], [address] EST GFR - AA Normal >60 [facility] Comment on above: Result Comment: Canc elled via OM: Order cancelled - Patient discharged Performed By: #### L 100.0100, L500.2500 ####[facility] [address] [place], [address] GAP Normal 5-15 [facility] Comment on above: Result Comment: Canc elled via OM: Order cancelled - Patient discharged Performed By: #### L 100.0100, L500.2500 ####[facility] [address] [place], [address] GLU Normal 74-106 [facility] Comment on above: Result Comment: Canc elled via OM: Order cancelled - Patient discharged Performed By: #### L 100.0100, L500.2500 ####[facility] [address] [place], [address] Potassium Normal 3.5-5.1 [facility] Comment on above: Result Comment: Canc elled via OM: Order cancelled - Patient discharged Performed By: #### L 100.0100, L500.2500 ####[facility] [address] [place], [address] Basic Metabolic Profile (BMP) Normal 136-145 [facility] Comment on above: Result Comment: Canc elled via OM: Order cancelled - Patient discharged Performed By: #### L 100.0100, L500.2500 ####[facility] [address] [place], [address] CBC W/Diff, Automatedon 01-0 Absolute Neut Normal 2.0-7.7 [facility] Comment on above: Result Comment: Canc elled via OM: Order cancelled - Patient discharged Performed By: #### L 100.0100, L500.2500 ####[facility] [address] [place], [address] HCT Normal 37-47 [facility] Comment on above: Result Comment: Canc elled via OM: Order cancelled - Patient discharged Performed By: #### L 100.0100, L500.2500 ####[facility] [address] [place], [address] HGB Normal 12.0-15.0 [facility] Comment on above: Result Comment: Canc elled via OM: Order cancelled - Patient discharged Performed By: #### L 100.0100, L500.2500 ####[facility] [address] [place], [address] MCH Normal 27.0-32.0 [facility] Comment on above: Result Comment: Canc elled via OM: Order cancelled - Patient discharged Performed By: #### L 100.0100, L500.2500 ####[facility] [address] [place], [address] MCHC Normal 32-36 [facility] Comment on above: Result Comment: Canc elled via OM: Order cancelled - Patient discharged Performed By: #### L 100.0100, L500.2500 ####[facility] [address] [place], [address] MCV Normal 81-99 [facility] Comment on above: Result Comment: Canc elled via OM: Order cancelled - Patient discharged Performed By: #### L 100.0100, L500.2500 ####[facility] [address] [place], [address] NEUT% Normal 47-70 [facility] Comment on above: Result Comment: Canc elled via OM: Order cancelled - Patient discharged Performed By: #### L 100.0100, L500.2500 ####[facility] [address] [place], [address] PLT Normal 150-450 [facility] Comment on above: Result Comment: Canc elled via OM: Order cancelled - Patient discharged Performed By: #### L 100.0100, L500.2500 ####[facility] [address] [place], [address] RBC Normal 4.2-5.4 [facility] Comment on above: Result Comment: Canc elled via OM: Order cancelled - Patient discharged Performed By: #### L 100.0100, L500.2500 ####[facility] [address] [place], [address] RDW CV Normal 11.6-14.6 [facility] Comment on above: Result Comment: Canc elled via OM: Order cancelled - Patient discharged Performed By: #### L 100.0100, L500.2500 ####[facility] [address] [place], [address] RDW SD Normal 35.1-43.9 [facility] Comment on above: Result Comment: Canc elled via OM: Order cancelled - Patient discharged Performed By: #### L 100.0100, L500.2500 ####[facility] [address] [place], [address] WBC Normal 4.4-11.0 [facility] Comment on above: Result Comment: Canc elled via OM: Order cancelled - Patient discharged Performed By: #### L 100.0100, L500.2500 ####[facility] [address] [place], [address] Basic Metabolic Profile (BMP )on 06-14-2024 BUN/CRE 22.1 RATIO High 10-20 [facility] Comment on above: Performed By: #### L 100.0100, L500.2500 ####[facility] [address] [place], [address] CA,Total 9.2 mg/dL Normal 8.5-10.1 [facility] Comment on above: Performed By: #### L 100.0100, L500.2500 ####[facility] [address] [place], [address] Chloride [Moles/Vol] 104 mmol/L Normal 98-107 [facility] Work Phone: Comment on above: Performed By: #### L 100.0100, L500.2500 ####[facility] [address] [place], [address] CO2 [Moles/Vol] 29.0 mmol/L Normal 21.0-32.0 [facility]; [facility] Work Phone: Comment on above: Performed By: #### L 100.0100, L500.2500 ####[facility] [address] [place], [address] Creatinine [Mass/Vol] 0.95 mg/dL Normal 0.55-1.02 [facility]; [facility] Work Phone: Comment on above: Result Comment: The validity of the calculated GFR GFRAA in patients over70 years has not been determined. Clinical correlation isessential. Performed By: #### L 100.0100, L500.2500 ####[facility] [address] [place], [address] ECRCL 32.19 ml/min Normal [facility]; [facility] Work Phone: Comment on above: Performed By: #### L 100.0100, L500.2500 ####[facility] [address] [place], [address] EST GFR - AA 72 mL/min Normal >60 [facility]; [facility] Work Phone: Comment on above: Result Comment: Afri can Fijian GFR Calc Performed By: #### L 100.0100, L500.2500 ####[facility] [address] [place], [address] GAP 4 Low 5-15 [facility]; [facility] Work Phone: Comment on above: Performed By: #### L 100.0100, L500.2500 ####[facility] [address] [place], [address] GFR/1.73 sq M.predicted among non-blacks MDRD (S/P/Bld) [Vol rate/Area] 60 mL/min/{1.73_m2} Normal >60 [facility]; [facility] Work Phone: Comment on above: Result Comment: Non- GFR Calc Performed By: #### L 100.0100, L500.2500 ####[facility] [address] [place], [address] Glucose [Mass/Vol] 99 mg/dL Normal 74-106 [facility]; [facility] Work Phone: Comment on above: Performed By: #### L 100.0100, L500.2500 ####[facility] [address] [place], [place], [phone] Potassium [Moles/Vol] 3.2 mmol/L Low 3.5-5.1 [facility]; [facility] Work Phone: Comment on above: Performed By: #### L 100.0100, L500.2500 ####[facility] [address] [place], [address] Sodium [Moles/Vol] 137 mmol/L Normal 136-145 [facility]; [facility] Work Phone: Comment on above: Performed By: #### L 100.0100, L500.2500 ####[facility] [address] [place], [address] Urea nitrogen [Mass/Vol] 21 mg/dL High 7-18 [facility]; [facility] Work Phone: Comment on above: Performed By: #### L 100.0100, L500.2500 ####[facility] [address] [place], [address] CBC W/Diff, Automatedon 12-3 -2023 Absolute Lymph 1.57 X10 3/uL Normal 0.83-4.51 [facility] Comment on above: Performed By: #### L 100.0100, L500.2500 ####[facility] [address] [place], [address] Absolute Neut 6.5 X10 3/uL Normal 2.0-7.7 [facility] Comment on above: Performed By: #### L 100.0100, L500.2500 ####[facility] [address] [place], [address] Basophils/100 WBC (Bld) 0.3 % Normal 0-1 [facility]; [facility] Work Phone: Comment on above: Performed By: #### L 100.0100, L500.2500 ####[facility] [address] [place], [address] Eosinophils/100 WBC (Bld) 1.8 % Normal 0-5 [facility]; [facility] Work Phone: Comment on above: Performed By: #### L 100.0100, L500.2500 ####[facility] [address] [place], [address] Erythrocyte distribution width (RBC) [Ratio] 14.3 % Normal 11.6-14.6 [facility]; [facility] Work Phone: Comment on above: Performed By: #### L 100.0100, L500.2500 ####[facility] [address] [place], [address] Hematocrit (Bld) [Volume fraction] 34.3 % Low 37-47 [facility]; [facility] Work Phone: Comment on above: Performed By: #### L 100.0100, L500.2500 ####[facility] [address] [place], [address] Hemoglobin (Bld) [Mass/Vol] 10.4 g/dL Low 12.0-15.0 [facility]; [facility] Work Phone: Comment on above: Performed By: #### L 100.0100, L500.2500 ####[facility] [address] [place], [place], [phone] IG% 0.900 Normal 0.0-0.9 [facility]; [facility] Work Phone: Comment on above: Result Comment: IG% - Immature Granulocytes (promyelocytes, myelocytes andmetamyelocytes) > 1% indicates that a LEFT SHIFT is Present. Performed By: #### L 100.0100, L500.2500 ####[facility] [address] [place], [address] Lymphocytes/100 WBC (Bld) 16.3 % Low 19-41 [facility]; [facility]. Work Phone: Comment on above: Performed By: #### L 100.0100, L500.2500 ####[facility] [address] [place], [address] MCH (RBC) [Entitic mass] 26.0 pg Low 27.0-32.0 [facility]; [facility] Work Phone: Comment on above: Performed By: #### L 100.0100, L500.2500 ####[facility] [address] [place], [address] MCHC (RBC) [Mass/Vol] 30.3 g/dL Low 32-36 [facility]; [facility] Work Phone: Comment on above: Performed By: #### L 100.0100, L500.2500 ####[facility] [address] [place], [address] MCV (RBC) [Entitic vol] 85.8 fL Normal 81-99 [facility]; [facility] Work Phone: Comment on above: Performed By: #### L 100.0100, L500.2500 ####[facility] [address] [place], [address] Monocytes/100 WBC (Bld) 13.2 % High 0-10 [facility]; [facility] Work Phone: Comment on above: Performed By: #### L 100.0100, L500.2500 ####[facility] [address] [place], [address] Neutrophils/100 WBC (Bld) 67.5 % Normal 47-70 [facility]; [facility] Work Phone: Comment on above: Performed By: #### L 100.0100, L500.2500 ####[facility] [address] [place], [address] Nucleated RBC (Bld) [#/Vol] 0 10*3/uL Normal 0-5 [facility]. Work Phone: Comment on above: Performed By: #### L 100.0100, L500.2500 ####[facility] [address] [place], [place], [phone] Platelet mean volume (Bld) [Entitic vol] 8.7 fL Normal 6.2-12.0 [facility].; [facility]. Work Phone: Comment on above: Performed By: #### L 100.0100, L500.2500 ####[facility] [address] [place], [place], [phone] Platelets (Bld) [#/Vol] 401 10*3/uL Normal 150-450 [facility]; [facility]. Work Phone: Comment on above: Performed By: #### L 100.0100, L500.2500 ####[facility] [address] [place], [place], [phone] RBC (Bld) [#/Vol] 4.00 10*6/uL Low 4.2-5.4 [facility]; [facility]. Work Phone: Comment on above: Performed By: #### L 100.0100, L500.2500 ####[facility] [address] [place], [place], [phone] RDW SD 44.6 fL High 35.1-43.9 [facility].; [facility]. Work Phone: Comment on above: Performed By: #### L 100.0100, L500.2500 ####[facility] [address] [place], [address] WBC (Bld) [#/Vol] 9.6 10*3/uL Normal 4.4-11.0 [facility].; [facility] [employer] Work Phone: Comment on above: Performed By: #### L 100.0100, L500.2500 ####[facility] [address] [place], [address] Laboratory - Chemistry and C hemistry - challengeon 06-14-2024 Magnesium [Mass/Vol] 9.2 mg/dL Normal 8.5 - 1 0.1 mg/dL [facility]; [facility]. Work Phone: No Panel Informationon 06-14 Absolute Lymph 1.57 {X10_3/uL} Normal 0.83 - 4.51 {X10_3/uL} [facility]; [facility]. Work Phone: Absolute Neut 6.5 {X10_3/uL} Normal 2.0 - 7.7 {X10_3/uL} [facility]; [facility] Work Phone: BUN/CRE 22.1 {RATIO} Abnormal 10 - 20 {RATIO} [facility]; [facility]. Work Phone: MICHAEL w/ Reflex Mult Confirmon 06-13-2024 MICHAEL TABLE TNP Normal [facility] Comment on above: Order Comment: PT. R EFUSED BLOOD DRAW. SON ASKED IF ID COME BACK LATER. Performed By: #### L 4600.0100, L505.7010, L3100.5450, L3300.1200, L3500.3600 ####[facility] [address] [place], [place], [phone] 12 Lead EKGon 06-11-2024 12 Lead EKG Normal [facility] L501.4020on 06-11-2024 TROPONIN-I HS 25 pg/mL Normal 3.0-54.0 [facility]; [facility] Work Phone: Comment on above: Order Comment: 'TROP ' Serial specimen #1, #2 or #3: 3 Result Comment: Plea se Note: New Test Units and Gender Specific Reference Ranges. For more information see Policy Stat Procedure [place] High Sensitivity Troponin (TNIH) and attachments. Performed By: #### L 501.4020 ####[facility] [address] [place], [place], [phone] TROPONIN-I HS 21 pg/mL Normal 3.0-54.0 [facility]; [facility] Work Phone: Comment on above: Order Comment: 'TROP ' Serial specimen #1, #2 or #3: 2 Result Comment: Plea se Note: New Test Units and Gender Specific Reference Ranges. For more information see Policy Stat Procedure [place] High Sensitivity Troponin (TNIH) and attachments. Performed By: #### L 501.4020 ####[facility] [address] [place], [place], [phone] TROPONIN-I HS 23 pg/mL Normal 3.0-54.0 [facility]; [facility] Work Phone: Comment on above: Order Comment: 'TROP ' Serial specimen #1, #2 or #3: 1 Result Comment: Plea se Note: New Test Units and Gender Specific Reference Ranges. For more information see Policy Stat Procedure [place] High Sensitivity Troponin (TNIH) and attachments. Performed By: #### L 501.4020 ####[facility] [address] [place], [place], [address] No Panel Informationon 06-10 MICHAEL TABLE [facility], [facility]. Work Phone: MICHAEL,DIRECT Negative [facility].; [facility], [facility]. Work Phone: ANTI-CENT B AB [facility].; [facility]. Work Phone: ANTI-DNA (DS)AB [facility].; [facility], [facility]. Work Phone: ANTI-JULIA-1 [facility].; [facility], [facility]. Work Phone: ANTI-SS-A [facility].; [facility]. Work Phone: ANTI-SS-B [facility].; [facility], [facility]. Work Phone: ANTICHROMATIN [facility].; [facility], [facility]. Work Phone: ANTISCLERODERM [facility].; [facility], [facility]. Work Phone: Asp. flavus Negative [facility].; [facility], [facility]. Work Phone: Asp. fumigatus Negative [facility].; [facility]. Work Phone: Asp. niger Negative [facility].; [facility] Work Phone: Atypical pANCA <1:20 [facility].; [facility], [facility]. Work Phone: CCP IgG Ab. 8 {units} Normal 0 - 19 {units} [facility].; [facility], [facility]. Work Phone: Cytoplasmic Ab <1:20 Normal [facility].; [facility]. Work Phone: Perinuclear Ab. <1:[address] [facility].; [facility], [facility]. Work Phone: OPERATIONS SPECIALISTS Ab Normal [facility].; [facility]. Work Phone: CORTES Ab Normal [facility].; [facility], [facility]. Work Phone: Quantiferon TB-Gold+on 06-10 QFT MITOGEN SARAH > 10.00 Normal . [facility] Comment on above: Performed By: #### L 3400.8000 ####[facility] [address] [facility] [place], [place], [phone] QFT NIL VALUE 0.08 IU/mL Normal . [facility] Comment on above: Performed By: #### L 3400.8000 ####[facility] [address] [facility] [place], [place], [phone] QFT TB GOLD+ Comment Normal . [facility] Comment on above: Result Comment: Sarmad tiFERON-TB [...] the test. Performed By: #### L 3400.8000 ####[facility] [address] [place], [address] QFT TB POS CRIT Negative Normal Negative [facility] Comment on above: Result Comment: No r [...] the productionof interferon gamma. Chemiluminescence immunoassaymethodologyPerformed at: [facility] [address] [id number] Director: Curtis Rubio PhD, Phone: [phone] Performed By: #### L 3400.8000 ####[facility] [address] [place], [address] QFT TB1+ AG SARAH 0.08 IU/mL Normal . [facility] Comment on above: Performed By: #### L 3400.8000 ####[facility] [address] [place], [address] QFT TB2+ AG SARAH 0.08 IU/mL Normal . [facility] Comment on above: Performed By: #### L 3400.8000 ####[facility] [address] [place], [place], [phone] Rheumatoid Factoron 06-10-20 24 RHEUMATOID FAC < 10.0 Normal <15 [facility] Work Phone: Comment on above: Order Comment: PT. R EFUSED BLOOD DRAW. SON ASKED IF ID COME BACK LATER.PT REFUSED BLOOD DRAW AT NOON. NURSE WAS INFORMED WILL ADDTO AM DRAW. Performed By: #### L 4600.0100, L505.7010, L3100.5450, L3300.1200, L3500.3600 ####[facility] [address] [place], [address] Consultation - Intensiviston 06-09-2024 Consultation - It Security Project Manager Normal [facility] Basic Metabolic Profile (BMP )on 06-08-2024 BUN/CRE 17.3 RATIO Normal 10-20 [facility] Comment on above: Performed By: #### L 501.5200, L300.3900, L501.2300, L500.2500, L100.0100, L501.9520, L500.3400, L500.4050 ####[facility] [address] [place], [place], [phone] CA,Total 8.6 mg/dL Normal 8.5-10.1 [facility] Comment on above: Performed By: #### L 501.5200, L300.3900, L501.2300, L500.2500, L100.0100, L501.9520, L500.3400, L500.4050 ####[facility] [address] [place], [place], [phone] Chloride [Moles/Vol] 105 mmol/L Normal 98-107 [facility]; [facility] Work Phone: Comment on above: Performed By: #### L 501.5200, L300.3900, L501.2300, L500.2500, L100.0100, L501.9520, L500.3400, L500.4050 ####[facility] [address] [place], [place], [phone] CO2 [Moles/Vol] 27.0 mmol/L Normal 21.0-32.0 [facility]; [facility] Work Phone: Comment on above: Performed By: #### L 501.5200, L300.3900, L501.2300, L500.2500, L100.0100, L501.9520, L500.3400, L500.4050 ####[facility] [address] [place], [place], [phone] Creatinine [Mass/Vol] 0.75 mg/dL Normal 0.55-1.02 [facility]; [facility] Work Phone: Comment on above: Result Comment: The validity of the calculated GFR GFRAA in patients over70 years has not been determined. Clinical correlation isessential. Performed By: #### L 501.5200, L300.3900, L501.2300, L500.2500, L100.0100, L501.9520, L500.3400, L500.4050 ####[facility] [address] [place], [address] ECRCL 38.23 ml/min Normal [facility]; [facility] Work Phone: Comment on above: Performed By: #### L 501.5200, L300.3900, L501.2300, L500.2500, L100.0100, L501.9520, L500.3400, L500.4050 ####[facility] [address] [place], [place], [address] EST GFR - AA 94 mL/min Normal >60 [facility]; [facility] Work Phone: Comment on above: Result Comment: Afri can Fijian GFR Calc Performed By: #### L 501.5200, L300.3900, L501.2300, L500.2500, L100.0100, L501.9520, L500.3400, L500.4050 ####[facility] [address] [place], [address] GAP 6 Normal 5-15 [facility]; [facility] Work Phone: Comment on above: Performed By: #### L 501.5200, L300.3900, L501.2300, L500.2500, L100.0100, L501.9520, L500.3400, L500.4050 ####[facility] [address] [place], [address] GFR/1.73 sq M.predicted among non-blacks MDRD (S/P/Bld) [Vol rate/Area] 78 mL/min/{1.73_m2} Normal >60 [facility]; [facility] Work Phone: Comment on above: Result Comment: Non- GFR Calc Performed By: #### L 501.5200, L300.3900, L501.2300, L500.2500, L100.0100, L501.9520, L500.3400, L500.4050 ####[facility] [address] [place], [address] Glucose [Mass/Vol] 84 mg/dL Normal 74-106 [facility] Work Phone: Comment on above: Performed By: #### L 501.5200, L300.3900, L501.2300, L500.2500, L100.0100, L501.9520, L500.3400, L500.4050 ####[facility] [address] [place], [address] Potassium [Moles/Vol] 3.6 mmol/L Normal 3.5-5.1 [facility]; [facility] Work Phone: Comment on above: Performed By: #### L 501.5200, L300.3900, L501.2300, L500.2500, L100.0100, L501.9520, L500.3400, L500.4050 ####[facility] [address] [place], [place], [address] Sodium [Moles/Vol] 138 mmol/L Normal 136-145 [facility]; [facility] Work Phone: Comment on above: Performed By: #### L 501.5200, L300.3900, L501.2300, L500.2500, L100.0100, L501.9520, L500.3400, L500.4050 ####[facility] [address] [place], [place], [phone] Urea nitrogen [Mass/Vol] 13 mg/dL Normal 7-18 [facility]; [facility] Work Phone: Comment on above: Performed By: #### L 501.5200, L300.3900, L501.2300, L500.2500, L100.0100, L501.9520, L500.3400, L500.4050 ####[facility] [address] [place], [place], [phone] CBC W/Diff, Automatedon 05-16 Absolute Lymph 1.28 X10 3/uL Normal 0.83-4.51 [facility] Comment on above: Performed By: #### L 501.5200, L300.3900, L501.2300, L500.2500, L100.0100, L501.9520, L500.3400, L500.4050 ####[facility] [address] [place], [place], [address] Absolute Neut 3.9 X10 3/uL Normal 2.0-7.7 [facility] Comment on above: Performed By: #### L 501.5200, L300.3900, L501.2300, L500.2500, L100.0100, L501.9520, L500.3400, L500.4050 ####[facility] [address] [place], [place], [phone] Basophils/100 WBC (Bld) 0.3 % Normal 0-1 [facility].; [facility] Work Phone: Comment on above: Performed By: #### L 501.5200, L300.3900, L501.2300, L500.2500, L100.0100, L501.9520, L500.3400, L500.4050 ####[facility] [address] [place], [place], [phone] Eosinophils/100 WBC (Bld) 3.2 % Normal 0-5 [facility]; [facility] Work Phone: Comment on above: Performed By: #### L 501.5200, L300.3900, L501.2300, L500.2500, L100.0100, L501.9520, L500.3400, L500.4050 ####[facility] [address] [place], [place], [phone] Erythrocyte distribution width (RBC) [Ratio] 14.4 % Normal 11.6-14.6 [facility]; [facility] Work Phone: Comment on above: Performed By: #### L 501.5200, L300.3900, L501.2300, L500.2500, L100.0100, L501.9520, L500.3400, L500.4050 ####[facility] [address] [place], [place], [address] Hematocrit (Bld) [Volume fraction] 31.3 % Low 37-47 [facility]; [facility] Work Phone: Comment on above: Performed By: #### L 501.5200, L300.3900, L501.2300, L500.2500, L100.0100, L501.9520, L500.3400, L500.4050 ####[facility] [address] [place], [place], [phone] Hemoglobin (Bld) [Mass/Vol] 9.4 g/dL Low 12.0-15.0 [facility]; [facility] Work Phone: Comment on above: Performed By: #### L 501.5200, L300.3900, L501.2300, L500.2500, L100.0100, L501.9520, L500.3400, L500.4050 ####[facility] [address] [place], [place], [phone] IG% 1.000 High 0.0-0.9 [facility]; [facility] Work Phone: Comment on above: Result Comment: IG% - Immature Granulocytes (promyelocytes, myelocytes andmetamyelocytes) > 1% indicates that a LEFT SHIFT is Present. Performed By: #### L 501.5200, L300.3900, L501.2300, L500.2500, L100.0100, L501.9520, L500.3400, L500.4050 ####[facility] [address] [place], [place], [phone] Lymphocytes/100 WBC (Bld) 20.7 % Normal 19-41 [facility]; [facility] Work Phone: Comment on above: Performed By: #### L 501.5200, L300.3900, L501.2300, L500.2500, L100.0100, L501.9520, L500.3400, L500.4050 ####[facility] [address] [place], [address] MCH (RBC) [Entitic mass] 25.5 pg Low 27.0-32.0 [facility]; [facility] Work Phone: Comment on above: Performed By: #### L 501.5200, L300.3900, L501.2300, L500.2500, L100.0100, L501.9520, L500.3400, L500.4050 ####[facility] [address] [place], [address] MCHC (RBC) [Mass/Vol] 30.0 g/dL Low 32-36 Eas [facility] Work Phone: Comment on above: Performed By: #### L 501.5200, L300.3900, L501.2300, L500.2500, L100.0100, L501.9520, L500.3400, L500.4050 ####[facility] [address] [place], [address] MCV (RBC) [Entitic vol] 84.8 fL Normal 81-99 [facility]; [facility] Work Phone: Comment on above: Performed By: #### L 501.5200, L300.3900, L501.2300, L500.2500, L100.0100, L501.9520, L500.3400, L500.4050 ####[facility] [address] [place], [place], [phone] Monocytes/100 WBC (Bld) 12.0 % High 0-10 [facility]; [facility] Work Phone: Comment on above: Performed By: #### L 501.5200, L300.3900, L501.2300, L500.2500, L100.0100, L501.9520, L500.3400, L500.4050 ####[facility] [address] [place], [phone] Neutrophils/100 WBC (Bld) 62.8 % Normal 47-70 [facility]; [facility] Work Phone: Comment on above: Performed By: #### L 501.5200, L300.3900, L501.2300, L500.2500, L100.0100, L501.9520, L500.3400, L500.4050 ####[facility] [address] [place], [address] Nucleated RBC (Bld) [#/Vol] 0 10*3/uL Normal 0-5 [facility]; [facility] Work Phone: Comment on above: Performed By: #### L 501.5200, L300.3900, L501.2300, L500.2500, L100.0100, L501.9520, L500.3400, L500.4050 ####[facility] [address] [place], [address] Platelet mean volume (Bld) [Entitic vol] 8.9 fL Normal 6.2-12.0 [facility]; [facility] Work Phone: Comment on above: Performed By: #### L 501.5200, L300.3900, L501.2300, L500.2500, L100.0100, L501.9520, L500.3400, L500.4050 ####[facility] [address] [place], [place], [phone] Platelets (Bld) [#/Vol] 342 10*3/uL Normal 150-450 [facility]; [facility] Work Phone: Comment on above: Performed By: #### L 501.5200, L300.3900, L501.2300, L500.2500, L100.0100, L501.9520, L500.3400, L500.4050 ####[facility] [address] [place], [place], [phone] RBC (Bld) [#/Vol] 3.69 10*6/uL Low 4.2-5.4 [facility]; [facility] Work Phone: Comment on above: Performed By: #### L 501.5200, L300.3900, L501.2300, L500.2500, L100.0100, L501.9520, L500.3400, L500.4050 ####[facility] [address] [facility] [place], [place], [phone] RDW SD 44.8 fL High 35.1-43.9 [facility]; [facility] Work Phone: Comment on above: Performed By: #### L 501.5200, L300.3900, L501.2300, L500.2500, L100.0100, L501.9520, L500.3400, L500.4050 ####[facility] [address] [place], [place], [phone] WBC (Bld) [#/Vol] 6.2 10*3/uL Normal 4.4-11.0 [facility]; [facility] Work Phone: Comment on above: Performed By: #### L 501.5200, L300.3900, L501.2300, L500.2500, L100.0100, L501.9520, L500.3400, L500.4050 ####[facility] [address] [place], [place], [phone] Comprehensive Metabolic Prof ilon 06-08-2024 Albumin/Globulin [Mass ratio] 0.7 {ratio} Low 0.9-2.4 [facility]; [facility] Work Phone: Comment on above: Performed By: #### L 501.5200, L300.3900, L501.2300, L500.2500, L100.0100, L501.9520, L500.3400, L500.4050 ####[facility] [address] [place], [place], [phone] Laboratory - Chemistry and C hemistry - challengeon 06-08-2024 Magnesium [Mass/Vol] 8.6 mg/dL Normal 8.5 - 1 0.1 mg/dL [facility]; [facility]. Work Phone: Liver Profileon 06-08-2024 Albumin [Mass/Vol] 2.5 g/dL Low 3.2-5.0 [facility]; [facility] Work Phone: Comment on above: Performed By: #### L 501.5200, L300.3900, L501.2300, L500.2500, L100.0100, L501.9520, L500.3400, L500.4050 ####[facility] [address] [place], [place], [phone] ALK P 96 U/L Normal 45-117 [facility]; [facility] Work Phone: Comment on above: Performed By: #### L 501.5200, L300.3900, L501.2300, L500.2500, L100.0100, L501.9520, L500.3400, L500.4050 ####[facility] [address] [facility] [address] [place], [place], [phone] ALT [Catalytic activity/Vol] 17 U/L Normal 13-56 [facility]; [facility] Work Phone: Comment on above: Performed By: #### L 501.5200, L300.3900, L501.2300, L500.2500, L100.0100, L501.9520, L500.3400, L500.4050 ####[facility] [address] [place], [place], [phone] AST [Catalytic activity/Vol] 15 U/L Normal 15-37 [facility]; [facility] Work Phone: Comment on above: Performed By: #### L 501.5200, L300.3900, L501.2300, L500.2500, L100.0100, L501.9520, L500.3400, L500.4050 ####[facility] [address] [place], [address] Bilirubin [Mass/Vol] 0.30 mg/dL Normal 0.20-1.00 [facility]; [facility] Work Phone: Comment on above: Result Comment: For patients on eltrombopag therapy, use of Dimension [place] TBIL is not recommended. Performed By: #### L 501.5200, L300.3900, L501.2300, L500.2500, L100.0100, L501.9520, L500.3400, L500.4050 ####[facility] [address] [place], [place], [phone] Bilirubin.direct [Mass/Vol] 0.09 mg/dL Normal 0.00-0.30 [facility]; [facility] Work Phone: Comment on above: Performed By: #### L 501.5200, L300.3900, L501.2300, L500.2500, L100.0100, L501.9520, L500.3400, L500.4050 ####[facility] [address] [place], [address] Globulin (S) [Mass/Vol] 3.4 g/dL Normal 2.2-4.2 [facility]; [facility] Work Phone: Comment on above: Performed By: #### L 501.5200, L300.3900, L501.2300, L500.2500, L100.0100, L501.9520, L500.3400, L500.4050 ####[facility] [address] [place], [address] T PROT 5.9 g/dL Low 6.4-8.2 [facility]; [facility] Work Phone: Comment on above: Performed By: #### L 501.5200, L300.3900, L501.2300, L500.2500, L100.0100, L501.9520, L500.3400, L500.4050 ####[facility] [address] [place], [place], [phone] Magnesiumon 06-08-2024 Magnesium [Mass/Vol] 1.9 mg/dL Normal 1.6-2.6 [facility]. Work Phone: Comment on above: Performed By: #### L 501.5200, L300.3900, L501.2300, L500.2500, L100.0100, L501.9520, L500.3400, L500.4050 ####[facility] [address] [facility] [place], [place], [address] No Panel Informationon 06-08 Absolute Lymph 1.28 {X10_3/uL} Normal 0.83 - 4.51 {X10_3/uL} [facility]. Work Phone: Absolute Neut 3.9 {X10_3/uL} Normal 2.0 - 7.7 {X10_3/uL} [facility]. Work Phone: BUN/CRE 17.3 {RATIO} Normal 10 - 20 {RATIO} [facility]. Work Phone: QFT MITOGEN SARAH > 10.00 Normal [facility]. Work Phone: QFT NIL VALUE 0.08 {IU/mL} Normal [facility].; [facility]. Work Phone: QFT TB GOLD+ Comment Normal [facility]. Work Phone: QFT TB POS CRIT Negative Normal [facility].; [facility]. Work Phone: QFT TB1+ AG SARAH 0.08 {IU/mL} Normal [facility].; [facility]. Work Phone: QFT TB2+ AG SARAH 0.08 {IU/mL} Normal [facility].; [facility]. Work Phone: TSH 1.990 {uIU/mL} Normal 0.358 - 3.740 {uIU/mL} [facility].; [facility] Work Phone: Phosphoruson 06-08-2024 Phosphate [Mass/Vol] 3.3 mg/dL Normal 2.5-4.9 [facility].; [facility]. Work Phone: Comment on above: Performed By: #### L 501.5200, L300.3900, L501.2300, L500.2500, L100.0100, L501.9520, L500.3400, L500.4050 ####[facility] [address] [place], [place], [phone] Prothrombin Time w/INRon INR Coag (PPP) [Relative time] 1.1 {INR} Normal [facility].; [facility]. Work Phone: Comment on above: Performed By: #### L 501.5200, L300.3900, L501.2300, L500.2500, L100.0100, L501.9520, L500.3400, L500.4050 ####[facility] [address] [place], [place], [phone] PT Coag (PPP) [Time] 13.7 s Normal 11.7-14.9 [facility] Work Phone: Comment on above: Performed By: #### L 501.5200, L300.3900, L501.2300, L500.2500, L100.0100, L501.9520, L500.3400, L500.4050 ####[facility] [address] [place], [place], [phone] Thyroid Stim Hormone (TSH)on 06-08-2024 TSH 1.990 uIU/mL Normal 0.358-3.74 0 [facility] Comment on above: Performed By: #### L 501.5200, L300.3900, L501.2300, L500.2500, L100.0100, L501.9520, L500.3400, L500.4050 ####[facility] [address] [place], [place], [phone] 12 Lead EKGon 06-07-2024 12 Lead EKG Normal [facility] Basic Metabolic Profile (BMP )on 06-07-2024 BUN/CRE 14.4 RATIO Normal 10-20 [facility] Comment on above: Order Comment: 'TROP ' Serial specimen #1, #2 or #3: 1 Performed By: #### L 100.0100, L501.2450, L503.6005, L500.2500, L300.3900, L300.4310, L501.4020, L500.3400 ####[facility] [address] [place], [place], [phone] CA,Total 8.8 mg/dL Normal 8.5-10.1 [facility] Comment on above: Order Comment: 'TROP ' Serial specimen #1, #2 or #3: 1 Performed By: #### L 100.0100, L501.2450, L503.6005, L500.2500, L300.3900, L300.4310, L501.4020, L500.3400 ####[facility] [address], [place], [phone] Chloride [Moles/Vol] 104 mmol/L Normal 98-107 [facility]; [facility] Work Phone: Comment on above: Order Comment: 'TROP ' Serial specimen #1, #2 or #3: 1 Performed By: #### L 100.0100, L501.2450, L503.6005, L500.2500, L300.3900, L300.4310, L501.4020, L500.3400 ####[facility] [address] [place], [address] CO2 [Moles/Vol] 28.0 mmol/L Normal 21.0-32.0 [facility]; [facility] Work Phone: Comment on above: Order Comment: 'TROP ' Serial specimen #1, #2 or #3: 1 Performed By: #### L 100.0100, L501.2450, L503.6005, L500.2500, L300.3900, L300.4310, L501.4020, L500.3400 ####[facility] [address] [place], [address] Creatinine [Mass/Vol] 0.97 mg/dL Normal 0.55-1.02 [facility]; [facility] Work Phone: Comment on above: Order Comment: 'TROP ' Serial specimen #1, #2 or #3: 1 Result Comment: The validity of the calculated GFR GFRAA in patients over70 years has not been determined. Clinical correlation isessential. Performed By: #### L 100.0100, L501.2450, L503.6005, L500.2500, L300.3900, L300.4310, L501.4020, L500.3400 ####[facility] [address] [facility] [place], [place], [phone] EST GFR - AA 71 mL/min Normal >60 [facility]; [facility] Work Phone: Comment on above: Order Comment: 'TROP ' Serial specimen #1, #2 or #3: 1 Result Comment: Afri can Fijian GFR Calc Performed By: #### L 100.0100, L501.2450, L503.6005, L500.2500, L300.3900, L300.4310, L501.4020, L500.3400 ####[facility] [address] [facility] [place], [place], [phone] GAP 6 Normal 5-15 [facility]; [facility] Work Phone: Comment on above: Order Comment: 'TROP ' Serial specimen #1, #2 or #3: 1 Performed By: #### L 100.0100, L501.2450, L503.6005, L500.2500, L300.3900, L300.4310, L501.4020, L500.3400 ####[facility] [address] [facility] [place], [place], [phone] GFR/1.73 sq M.predicted among non-blacks MDRD (S/P/Bld) [Vol rate/Area] 58 mL/min/{1.73_m2} Low >60 [facility]; [facility] Work Phone: Comment on above: Order Comment: 'TROP ' Serial specimen #1, #2 or #3: 1 Result Comment: Non- GFR Calc Performed By: #### L 100.0100, L501.2450, L503.6005, L500.2500, L300.3900, L300.4310, L501.4020, L500.3400 ####[facility] [address] [place], [place], [phone] Glucose [Mass/Vol] 88 mg/dL Normal 74-106 [facility]; [facility] Work Phone: Comment on above: Order Comment: 'TROP ' Serial specimen #1, #2 or #3: 1 Performed By: #### L 100.0100, L501.2450, L503.6005, L500.2500, L300.3900, L300.4310, L501.4020, L500.3400 ####[facility] [address] [place], [phone] Potassium [Moles/Vol] 4.1 mmol/L Normal 3.5-5.1 [facility]; [facility] Work Phone: Comment on above: Order Comment: 'TROP ' Serial specimen #1, #2 or #3: 1 Result Comment: Slig ht Hemolysis, Result may be falsely increased. Performed By: #### L 100.0100, L501.2450, L503.6005, L500.2500, L300.3900, L300.4310, L501.4020, L500.3400 ####[facility] [address] [place], [place], [phone] Sodium [Moles/Vol] 138 mmol/L Normal 136-145 [facility]; [facility] Work Phone: Comment on above: Order Comment: 'TROP ' Serial specimen #1, #2 or #3: 1 Performed By: #### L 100.0100, L501.2450, L503.6005, L500.2500, L300.3900, L300.4310, L501.4020, L500.3400 ####[facility] [address] [place], [place], [phone] Urea nitrogen [Mass/Vol] 14 mg/dL Normal 7-18 [facility]; [facility] Work Phone: Comment on above: Order Comment: 'TROP ' Serial specimen #1, #2 or #3: 1 Performed By: #### L 100.0100, L501.2450, L503.6005, L500.2500, L300.3900, L300.4310, L501.4020, L500.3400 ####[facility] [address] [place], [place], [phone] Brain/Head without Contrasto n 06-07-2024 Brain/Head without Contrast Normal [facility] CBC W/Diff, Automatedon 05-16 PLT EST ADEQUATE Normal ADEQ [facility]; [facility] Work Phone: Comment on above: Performed By: #### L 100.0100, L501.2450, L503.6005, L500.2500, L300.3900, L300.4310, L501.4020, L500.3400 ####[facility] [address] [place], [place], [phone] Chest 1 View (Portable)on Chest 1 View (Portable) Normal [facility] Chest WITH Contraston 2023 Chest WITH Contrast Normal [facility] Emergency Department Summary on 06-07-2024 Emergency Department Summary Normal [facility] H AND P Exam - Hospitaliston 06-07-2024 H&P Exam - Hospitalist Normal [facility] L501.4020on 06-07-2024 TROPONIN-I HS 9 pg/mL Normal 3.0-54.0 [facility] [place] phorus [facility]. Work Phone: Comment on above: Order Comment: 'TROP ' Serial specimen #1, #2 or #3: 1 Result Comment: Jaguar leigh Note: New Test Units and Gender Specific Reference Ranges. For more information see Policy Stat Procedure [place] High Sensitivity Troponin (TNIH) and attachments. Performed By: #### L 100.0100, L501.2450, L503.6005, L500.2500, L300.3900, L300.4310, L501.4020, L500.3400 ####[facility] [address] [place], [place], [address] Laboratory - Chemistry and C hemistry - challengeon 06-07-2024 Magnesium [Mass/Vol] 8.8 mg/dL Normal 8.5 - 1 0.1 mg/dL [facility]. Work Phone: Laboratory - Hematology and Cell countson 06-07-2024 Basophils/100 WBC (Bld) 0.6 % Normal 0 - 1 [facility]. Work Phone: Eosinophils/100 WBC (Bld) 2.2 % Normal 0 - 5 [facility]. Work Phone: Erythrocyte distribution width (RBC) [Ratio] 14.5 % Normal 11.6 - 14.6 [facility]; [facility]. Work Phone: Hematocrit (Bld) [Volume fraction] 34.6 % Abnormal 37 - 47 [facility]. Work Phone: Hemoglobin (Bld) [Mass/Vol] 10.4 g/dL Abnormal 12.0 - 15.0 g/dL [facility]; [facility] Work Phone: Lymphocytes/100 WBC (Bld) 19.7 % Normal 19 - 41 [facility]; [facility] Work Phone: MCH (RBC) [Entitic mass] 25.7 pg Abnormal 27.0 - 32.0 pg [facility]; [facility] Work Phone: MCHC (RBC) [Mass/Vol] 30.1 g/dL Abnormal 32 - 3 6 g/dL [facility]; [facility] Work Phone: MCV (RBC) [Entitic vol] 85.6 fL Normal 81 - 99 fL [facility]; [facility] Work Phone: Monocytes/100 WBC (Bld) 11.0 % Abnormal 0 - 10 [facility]; [facility] Work Phone: Neutrophils/100 WBC (Bld) 65.9 % Normal 47 - 70 [facility]; [facility] Work Phone: Nucleated RBC (Bld) [#/Vol] 0 10*3/uL Normal 0 - 5 [facility]; [facility] Work Phone: Platelet mean volume (Bld) [Entitic vol] 9.8 fL Normal 6.2 - 12.0 fL [facility]; [facility] Work Phone: RBC (Bld) [#/Vol] 4.04 10*6/uL Abnormal 4.2 - 5.4 {M/mm3} [facility]; [facility]. Work Phone: WBC (Bld) [#/Vol] 6.4 10*3/uL Normal 4.4 - 11.0 K/mm3 [facility].; [facility]. Work Phone: Laboratory - Microbiology an d Antimicrobial susceptibilityon 06-07-2024 Bacteria identified Cx Nom (Unsp spec) 0 SEEN Normal [facility]; [facility]. Work Phone: Laboratory - Specimen inform ationon 06-07-2024 Clarity (U) Clear Normal [facility]; [facility]. Work Phone: Color (U) Yellow Normal [facility].; [facility]. Work Phone: Laboratory - Urinalysison Nitrite Ql (U) Negative Normal [facility].; [facility]. Work Phone: Lactic Acidon 06-07-2024 Lactate [Moles/Vol] 1.1 mmol/L Normal 0.4-1.9 [facility]; [facility]. Work Phone: Comment on above: Order Comment: Y Performed By: #### L 100.0100, L501.2450, L503.6005, L500.2500, L300.3900, L300.4310, L501.4020, L500.3400 ####[facility] [address] [place], [address] Lipaseon 06-07-2024 Lipase [Catalytic activity/Vol] 75 U/L Normal 13-75 [facility]; [facility]. Work Phone: Comment on above: Order Comment: 'TROP ' Serial specimen #1, #2 or #3: 1 Result Comment: Jaguar leigh note:LIPASE revised reference range effective 22.New Lipase methodology. Expected to produce lower valuesthan the previous assay method.NEW Reference Range: 13 - 75 U/L Performed By: #### L 100.0100, L501.2450, L503.6005, L500.2500, L300.3900, L300.4310, L501.4020, L500.3400 ####[facility] [address] [place], [place], [phone] Liver Profileon 06-07-2024 Albumin [Mass/Vol] 2.7 g/dL Low 3.2-5.0 [facility] Work Phone: Comment on above: Order Comment: 'TROP ' Serial specimen #1, #2 or #3: 1 Performed By: #### L 100.0100, L501.2450, L503.6005, L500.2500, L300.3900, L300.4310, L501.4020, L500.3400 ####[facility] [address] [place], [place], [phone] ALK P 106 U/L Normal 45-117 [facility]; [facility] Work Phone: Comment on above: Order Comment: 'TROP ' Serial specimen #1, #2 or #3: 1 Performed By: #### L 100.0100, L501.2450, L503.6005, L500.2500, L300.3900, L300.4310, L501.4020, L500.3400 ####[facility] [address] [place], [place], [phone] ALT [Catalytic activity/Vol] 18 U/L Normal 13-56 [facility]; [facility] Work Phone: Comment on above: Order Comment: 'TROP ' Serial specimen #1, #2 or #3: 1 Performed By: #### L 100.0100, L501.2450, L503.6005, L500.2500, L300.3900, L300.4310, L501.4020, L500.3400 ####[facility] [address] [place], [address] AST [Catalytic activity/Vol] 25 U/L Normal 15-37 [facility]; [facility] Work Phone: Comment on above: Order Comment: 'TROP ' Serial specimen #1, #2 or #3: 1 Result Comment: Slig ht Hemolysis, Result may be falsely increased. Performed By: #### L 100.0100, L501.2450, L503.6005, L500.2500, L300.3900, L300.4310, L501.4020, L500.3400 ####[facility] [address] [place], [address] Bilirubin [Mass/Vol] 0.40 mg/dL Normal 0.20-1.00 [facility]; [facility] Work Phone: Comment on above: Order Comment: 'TROP ' Serial specimen #1, #2 or #3: 1 Result Comment: For patients on eltrombopag therapy, use of Dimension [place] TBIL is not recommended. Performed By: #### L 100.0100, L501.2450, L503.6005, L500.2500, L300.3900, L300.4310, L501.4020, L500.3400 ####[facility] [address] [place], [phone] Bilirubin.direct [Mass/Vol] 0.08 mg/dL Normal 0.00-0.30 [facility]. Work Phone: Comment on above: Order Comment: 'TROP ' Serial specimen #1, #2 or #3: 1 Performed By: #### L 100.0100, L501.2450, L503.6005, L500.2500, L300.3900, L300.4310, L501.4020, L500.3400 ####[facility] [address] [facility] [place], [place], [phone] Globulin (S) [Mass/Vol] 3.9 g/dL Normal 2.2-4.2 [facility]. Work Phone: Comment on above: Order Comment: 'TROP ' Serial specimen #1, #2 or #3: 1 Performed By: #### L 100.0100, L501.2450, L503.6005, L500.2500, L300.3900, L300.4310, L501.4020, L500.3400 ####[facility] [address] [facility] [place], [place], [phone] T PROT 6.6 g/dL Normal 6.4-8.2 [facility] Work Phone: Comment on above: Order Comment: 'TROP ' Serial specimen #1, #2 or #3: 1 Performed By: #### L 100.0100, L501.2450, L503.6005, L500.2500, L300.3900, L300.4310, L501.4020, L500.3400 ####[facility] [address] [facility] [place], [place], [phone] M100.678on 06-07-2024 M100.678 Pending SARS-CoV-2 (COVID 19) A Positive A INFLUENZA A Negative INFLUENZA B Negative RSV PCR Negative SARS-CoV-2 (COVID 19 PCR) Normal [facility] Comment on above: Performed By: #### L 400.0001, M100.678 ####[facility] [address] [place], [address] M8200.1000on 06-07-2024 M8200.1000 Normal Reference Ran ge = Negative MRSA DNA Nose Ql ZAID+probe GeneXpert Instrument, PCR method MRSA PCR MRSA NEGATIVE Normal [facility] Comment on above: Performed By: #### M 8200.1000 ####[facility] [address] [place], [address] No Panel Informationon 06-07 Absolute Lymph 1.26 {X10_3/uL} Normal 0.83 - 4.51 {X10_3/uL} [facility].; [facility]. Work Phone: Absolute Neut 4.2 {X10_3/uL} Normal 2.0 - 7.7 {X10_3/uL} [facility].; [facility]. Work Phone: BILIRUBIN URINE Negative Normal [facility]. Work Phone: BUN/CRE 14.4 {RATIO} Normal 10 - 20 {RATIO} [facility].; [employer] [place] [employer] phorus [facility]. Work Phone: GLUCOSE, UR Normal Normal [facility].; [facility] H[facility]ITAL[facility]. Work Phone: IG% 0.600 Normal 0.0 - 0.9 [facility]Init[facility].; [employer] phorus [facility]. Work Phone: KETONE UR Negative Normal [facility].; [facility] Work Phone: LEUK ESTERASE Negative Normal [facility]; [facility] Work Phone: M100.678 See Note Normal [facility].; [facility] Work Phone: M8200.1000 See Note Normal [facility].; [facility]. Work Phone: OCCULT BLOOD-UR 10 /ul Abnormal [facility]; [facility] Work Phone: pH UR 7.0 Normal 5.0 - 8.0 [facility]; [facility] Work Phone: PLT Normal 150 - 450 K/mm3 [facility]; [facility] Work Phone: PROT DIPSTX Negative Normal [facility]; [facility] Work Phone: RDW SD 44.9 fL Abnormal 35.1 - 43.9 fL [facility]; [facility] Work Phone: SP.GR. DIPSTX 1.010 Normal 1.002 - 1.030 [facility]; [facility] Work Phone: UROBILI Normal Normal [facility]; [facility] Work Phone: Partial Thromboplast Timeon 06-07-2024 aPTT Coag (Bld) [Time] 21.3 s Low 24.1-36.2 [facility]; [facility] Work Phone: Comment on above: Performed By: #### L 100.0100, L501.2450, L503.6005, L500.2500, L300.3900, L300.4310, L501.4020, L500.3400 ####[facility] [address] [place], [place], [phone] Prothrombin Time w/INRon INR Coag (PPP) [Relative time] 0.9 {INR} Normal [facility] Work Phone: Comment on above: Performed By: #### L 100.0100, L501.2450, L503.6005, L500.2500, L300.3900, L300.4310, L501.4020, L500.3400 ####[facility] [address] [place], [address] PT Coag (PPP) [Time] 12.2 s Normal 11.7-14.9 [facility] Work Phone: Comment on above: Performed By: #### L 100.0100, L501.2450, L503.6005, L500.2500, L300.3900, L300.4310, L501.4020, L500.3400 ####[facility] [address] [place], [address] Urinalysis, Completeon 06-07 EPI,SQUAMOUS 0-5 SEEN Normal 5-10 [facility]; [facility] Work Phone: Comment on above: Order Comment: COLLE CTOR TO SPECIFY Performed By: #### L 400.0001, M100.678 ####[facility] [address] [place], [address] RBC 0-5 SEEN Normal 0-5 [facility]; [facility] Work Phone: Comment on above: Order Comment: YA CTOR TO SPECIFY Performed By: #### L 400.0001, M100.678 ####[facility] [address] [place], [address] BACTERIA 0 SEEN Normal None Seen [facility] Comment on above: Order Comment: YA CTOR TO SPECIFY Performed By: #### L 400.0001, M100.678 ####[facility] [address] [place], [address] Mucus Ql (Urine sed) 0 SEEN Normal [facility]; [facility] Work Phone: Comment on above: Order Comment: YA CTOR TO SPECIFY Performed By: #### L 400.0001, M100.678 ####[facility] [address] [place], [address] WBC 0 SEEN Normal 0-5 [facility]; [facility] Work Phone: Comment on above: Order Comment: YA CTOR TO SPECIFY Performed By: #### L 400.0001, M100.678 ####[facility] [address] [place], [address] CBC W/Diff, Automatedon 12- Absolute Lymph 0.79 X10 3/uL Low 0.83-4.51 [facility] Comment on above: Performed By: #### L 100.0100, L500.4050, L503.6005 ####[facility] [address] [place], [address] Absolute Neut 3.5 X10 3/uL Normal 2.0-7.7 [facility] Comment on above: Performed By: #### L 100.0100, L500.4050, L503.6005 ####[facility] [address] [place], [address] Basophils/100 WBC (Bld) 0.6 % Normal 0-1 [facility]; [facility] Work Phone: Comment on above: Performed By: #### L 100.0100, L500.4050, L503.6005 ####[facility] [address] [place], [place], [phone] Eosinophils/100 WBC (Bld) 0.4 % Normal 0-5 [facility]; [facility] Work Phone: Comment on above: Performed By: #### L 100.0100, L500.4050, L503.6005 ####[facility] [address] [place], [place], [phone] Erythrocyte distribution width (RBC) [Ratio] 14.6 % Normal 11.6-14.6 [facility]; [facility] Work Phone: Comment on above: Performed By: #### L 100.0100, L500.4050, L503.6005 ####[facility] [address] [place], [address] Hematocrit (Bld) [Volume fraction] 35.5 % Low 37-47 [facility]; [facility] Work Phone: Comment on above: Performed By: #### L 100.0100, L500.4050, L503.6005 ####[facility] [address] [place], [place], [phone] Hemoglobin (Bld) [Mass/Vol] 10.5 g/dL Low 12.0-15.0 [facility]; [facility] Work Phone: Comment on above: Performed By: #### L 100.0100, L500.4050, L503.6005 ####[facility] [address] [facility] [place], [place], [phone] IG% 0.400 Normal 0.0-0.9 [facility]; [facility] Work Phone: Comment on above: Result Comment: IG% - Immature Granulocytes (promyelocytes, myelocytes andmetamyelocytes) > 1% indicates that a LEFT SHIFT is Present. Performed By: #### L 100.0100, L500.4050, L503.6005 ####[facility] [address] [facility] [place], [place], [phone] Lymphocytes/100 WBC (Bld) 14.9 % Low 19-41 [facility]; [facility] Work Phone: Comment on above: Performed By: #### L 100.0100, L500.4050, L503.6005 ####[facility] [address] [facility] [place], [place], [phone] MCH (RBC) [Entitic mass] 25.5 pg Low 27.0-32.0 [facility]; [facility] Work Phone: Comment on above: Performed By: #### L 100.0100, L500.4050, L503.6005 ####[facility] [address] [facility] [place], [place], [phone] MCHC (RBC) [Mass/Vol] 29.6 g/dL Low 32-36 [facility] Work Phone: Comment on above: Performed By: #### L 100.0100, L500.4050, L503.6005 ####[facility] [address] [place], [place], [phone]) MCV (RBC) [Entitic vol] 86.4 fL Normal 81-99 [facility]; [facility] Work Phone: Comment on above: Performed By: #### L 100.0100, L500.4050, L503.6005 ####[facility] [address] [place], [place], [phone] Monocytes/100 WBC (Bld) 18.6 % High 0-10 [facility]; [facility] Work Phone: Comment on above: Performed By: #### L 100.0100, L500.4050, L503.6005 ####[facility] [address] [facility] [place], [place], [phone] Neutrophils/100 WBC (Bld) 65.1 % Normal 47-70 [facility]; [facility] Work Phone: Comment on above: Performed By: #### L 100.0100, L500.4050, L503.6005 ####[facility] [address] [place], [place], [phone] Nucleated RBC (Bld) [#/Vol] 0 10*3/uL Normal 0-5 [facility]; [facility] Work Phone: Comment on above: Performed By: #### L 100.0100, L500.4050, L503.6005 ####[facility] [address] [place], [address] Platelet mean volume (Bld) [Entitic vol] 8.5 fL Normal 6.2-12.0 [facility]; [facility] Work Phone: Comment on above: Performed By: #### L 100.0100, L500.4050, L503.6005 ####[facility] [address] [place], [address] Platelets (Bld) [#/Vol] 344 10*3/uL Normal 150-450 [facility]; [facility] Work Phone: Comment on above: Performed By: #### L 100.0100, L500.4050, L503.6005 ####[facility] [address] [place], [address] RBC (Bld) [#/Vol] 4.11 10*6/uL Low 4.2-5.4 [facility]; [facility] Work Phone: Comment on above: Performed By: #### L 100.0100, L500.4050, L503.6005 ####[facility] [address] [place], [address] RDW SD 46.4 fL High 35.1-43.9 [facility]; [facility] Work Phone: Comment on above: Performed By: #### L 100.0100, L500.4050, L503.6005 ####[facility] [address] [place], [address] WBC (Bld) [#/Vol] 5.3 10*3/uL Normal 4.4-11.0 [facility]; [facility] Work Phone: Comment on above: Performed By: #### L 100.0100, L500.4050, L503.6005 ####[facility] [address] [place], [address] Chest PA and Lateralon 05-30 Chest PA and Lateral Normal [facility] Comprehensive Metabolic Prof ilon 05-30-2024 Albumin [Mass/Vol] 3.0 g/dL Low 3.2-5.0 [facility]; [facility] Work Phone: Comment on above: Performed By: #### L 100.0100, L500.4050, L503.6005 ####[facility] [address] [place], [address] Albumin/Globulin [Mass ratio] 0.8 {ratio} Low 0.9-2.4 [facility]; [facility] Work Phone: Comment on above: Performed By: #### L 100.0100, L500.4050, L503.6005 ####[facility] [address] [place], [address] ALK P 124 U/L High 45-117 [facility]; [facility] Work Phone: Comment on above: Performed By: #### L 100.0100, L500.4050, L503.6005 ####[facility] [address] [place], [address] ALT [Catalytic activity/Vol] 15 U/L Normal 13-56 [facility]; [facility] Work Phone: Comment on above: Performed By: #### L 100.0100, L500.4050, L503.6005 ####[facility] [address] [place], [address] AST [Catalytic activity/Vol] 22 U/L Normal 15-37 [facility]; [facility] Work Phone: Comment on above: Performed By: #### L 100.0100, L500.4050, L503.6005 ####[facility] [address] [place], [address] Bilirubin [Mass/Vol] 0.40 mg/dL Normal 0.20-1.00 [facility]; [facility] Work Phone: Comment on above: Result Comment: For patients on eltrombopag therapy, use of Dimension [place] TBIL is not recommended. Performed By: #### L 100.0100, L500.4050, L503.6005 ####[facility] [address] [place], [address] BUN/CRE 13.4 RATIO Normal 10-20 [facility] Comment on above: Performed By: #### L 100.0100, L500.4050, L503.6005 ####[facility] [address] [place], [address] CA,Total 8.9 mg/dL Normal 8.5-10.1 [facility] Comment on above: Performed By: #### L 100.0100, L500.4050, L503.6005 ####[facility] [address] [place], [address] Chloride [Moles/Vol] 105 mmol/L Normal 98-107 [facility]; [facility] Work Phone: Comment on above: Performed By: #### L 100.0100, L500.4050, L503.6005 ####[facility] [address] [place], [place], [phone] CO2 [Moles/Vol] 27.0 mmol/L Normal 21.0-32.0 [facility]; [facility] Work Phone: Comment on above: Performed By: #### L 100.0100, L500.4050, L503.6005 ####[facility] [address] [place], [address] Creatinine [Mass/Vol] 1.12 mg/dL High 0.55-1.02 [facility]; [facility] Work Phone: Comment on above: Result Comment: The validity of the calculated GFR GFRAA in patients over70 years has not been determined. Clinical correlation isessential. Performed By: #### L 100.0100, L500.4050, L503.6005 ####[facility] [address] [place], [address] EST GFR - AA 60 mL/min Normal >60 [facility]; [facility] Work Phone: Comment on above: Result Comment: Afri can Fijian GFR Calc Performed By: #### L 100.0100, L500.4050, L503.6005 ####[facility] [address] [place], [address] GAP 5 Normal 5-15 [facility]; [facility] Work Phone: Comment on above: Performed By: #### L 100.0100, L500.4050, L503.6005 ####[facility] [address] [place], [place], [phone] GFR/1.73 sq M.predicted among non-blacks MDRD (S/P/Bld) [Vol rate/Area] 49 mL/min/{1.73_m2} Low >60 [facility]; [facility] Work Phone: Comment on above: Result Comment: Non- GFR Calc Performed By: #### L 100.0100, L500.4050, L503.6005 ####[facility] [address] [place], [place], [phone] Globulin (S) [Mass/Vol] 3.9 g/dL Normal 2.2-4.2 [facility]; [facility] Work Phone: Comment on above: Performed By: #### L 100.0100, L500.4050, L503.6005 ####[facility] [address] [place], [place], [phone] Glucose [Mass/Vol] 108 mg/dL High 74-106 [facility]; [facility] Work Phone: Comment on above: Result Comment: Fast ing Glucose result from 100 to 125 mg/dLsuggests IMPAIRED HOMEOSTASIS per A.D.A. criteria. Performed By: #### L 100.0100, L500.4050, L503.6005 ####[facility] [address] [place], [place], [phone] Potassium [Moles/Vol] 3.5 mmol/L Normal 3.5-5.1 [facility]; [facility] Work Phone: Comment on above: Performed By: #### L 100.0100, L500.4050, L503.6005 ####[facility] [address] [place], [place], [phone] Sodium [Moles/Vol] 137 mmol/L Normal 136-145 [facility]; [facility] Work Phone: Comment on above: Performed By: #### L 100.0100, L500.4050, L503.6005 ####[facility] [address] [place], [place], [phone] T PROT 6.9 g/dL Normal 6.4-8.2 [facility]; [facility] Work Phone: Comment on above: Performed By: #### L 100.0100, L500.4050, L503.6005 ####[facility] [address] [place], [place], [id number] Urea nitrogen [Mass/Vol] 15 mg/dL Normal 7-18 [facility]; [facility] Work Phone: Comment on above: Performed By: #### L 100.0100, L500.4050, L503.6005 ####[facility] [address] [place], [address] Emergency Department Summary on 05-30-2024 Emergency Department Summary Normal [facility] Laboratory - Chemistry and C hemistry - challengeon 05-30-2024 Magnesium [Mass/Vol] 30 mg/dL Abnormal [facility]; [facility] Work Phone: Magnesium [Mass/Vol] 8.9 mg/dL Normal 8.5 - 1 0.1 mg/dL [facility], [employer]. Work Phone: Laboratory - Microbiology an d Antimicrobial susceptibilityon 05-30-2024 Bacteria identified Cx Nom (Unsp spec) 1+ Normal [facility], [employer]. Work Phone: Laboratory - Specimen inform ationon 05-30-2024 Clarity (U) Clear Normal [facility], [employer]. Work Phone: Color (U) Yellow Normal [facility].; [facility]. Work Phone: Laboratory - Urinalysison Nitrite Ql (U) Negative Normal [facility].; [facility], [employer]. Work Phone: Lactic Acidon 05-30-2024 Lactate [Moles/Vol] 1.6 mmol/L Normal 0.4-1.9 [facility].; [facility], [facility]. Work Phone: Comment on above: Order Comment: Y Performed By: #### L 100.0100, L500.4050, L503.6005 ####[facility] [address] [place], [address] No Panel Informationon 05-30 Absolute Lymph 0.79 {X10_3/uL} Abnormal 0.83 - 4.51 {X10_3/uL} [facility].; [facility], [facility]. Work Phone: Absolute Neut 3.5 {X10_3/uL} Normal 2.0 - 7.7 {X10_3/uL} [facility]. Work Phone: BILIRUBIN URINE Negative Normal [facility].; [facility], [facility]. Work Phone: BUN/CRE 13.4 {RATIO} Normal 10 - 20 {RATIO} [facility].; [facility], [facility]. Work Phone: GLUCOSE, UR Normal Normal [facility].; [facility]. Work Phone: KETONE UR Negative Normal [facility].; [facility]. Work Phone: LEUK ESTERASE Negative Normal [facility].; [facility], [facility]. Work Phone: OCCULT BLOOD-UR Negative Normal [facility].; [facility]. Work Phone: pH UR 6.5 Normal 5.0 - 8.0 [facility].; [facility], [facility]. Work Phone: SP.GR. DIPSTX 1.010 Normal 1.002 - 1.030 [facility].; [facility]. Work Phone: UROBILI Normal Normal [facility].; [facility], [facility]. Work Phone: Urinalysis, Completeon 05-30 Mucus Ql (Urine sed) RARE Normal [facility].; [facility], [facility]. Work Phone: Comment on above: Order Comment: CLEAN CATCH Performed By: #### L 400.0001 ####[facility] [address] [place], [address] BACTERIA 1+ /hpf Normal None Seen [facility] Comment on above: Order Comment: CLEAN CATCH Performed By: #### L 400.0001 ####[facility] [address] [place], [address] EPI,SQUAMOUS 0-5 SEEN Normal 5-10 [facility], [employer]. Work Phone: Comment on above: Order Comment: CLEAN CATCH Performed By: #### L 400.0001 ####[facility] [address] [place], [address] WBC 0-5 SEEN Normal 0-5 [facility], [employer]. Work Phone: Comment on above: Order Comment: CLEAN CATCH Performed By: #### L 400.0001 ####[facility] [address] [place], [address] RBC 0 SEEN Normal 0-5 [facility], [employer]. Work Phone: Comment on above: Order Comment: CLEAN CATCH Performed By: #### L 400.0001 ####[facility] [address] [place], [address] OPERATIVE PROCEDURESon 02-15 OPERATIVE PROCEDURES [facility] OPERATIVE REPORT NAME ACCOUNT SEX AGE ADMIT DISCHARGE PT MED. RECORD# NUMBER DATE DATE TYPE SAPNA BULLARD [id number] F 84 02/05/24 2 [id number] ROOM: [facility] DATE OF : 1940 DICTATING PHYSICIAN: Marcos White DATE OF PROCEDURE: February 05, 2024 SURGEON: Marcos White DO USED CAR MANAGER: None. ANESTHETIC: Local. PRE-PROCEDURE DIAGNOSES: (1) Lumbar [...] Marcos White DO 02/05/24 12:03 JOB #: [id number] Transcribed By: tim 02/05/24 12:27 Electronically signed by: E-SIGN: MARCOS WHITE 02/16/24 07:40 Page 2 of 2 SAPNA BULLARD Operative Report Normal [facility] C-ARM USAGE 1 HOUR 024 C-ARM USAGE 1 HOUR [place] [address] Patient: SAPNA BULLARD. Phone#: : 1940 Age: 84 Gender: F Pt. Type: Out Account: [id number] Location: [facility] Ordering: MARCOS WHITE Exam Date: 02/05/2024/11:01 Family Phys: NICCI LEMUS Charge Code: [id number] Physician: Morrow Order #: [id number] Dose#: PROCEDURE: C-ARM USEAGE 1 HR COMPARISON: [facility], SX, C-ARM USEAGE 1 HR, 10/08/2023, 8:09. INDICATIONS: [...] Alston MD on 02/05/2024 at 16:03 Normal [facility] Automated blood erythrocyte count (number/volume)Ordered By: Vish Cook on 08-17-2023 RBC (Bld) [#/Vol] 4.32 10*6/uL Normal 4.2 - 5.4 {M/mm3} [facility] Automated blood hematocrit ( percentage)Ordered By: Vish Cook on 08-17-2023 Hematocrit (Bld) [Volume fraction] 37.9 % Normal 37 - 47 [facility] Basophil percentageOrdered B y: Vish Cook on 08-17-2023 Bilirubin [Mass/Vol] 0.30 mg/dL Normal 0.20 - 1.00 mg/dL [facility] Comment on above: For patients on eltr ombopag therapy, use of Dimension [place] TBIL is not recommended. Chloride [Moles/Vol] 104 mmol/L Normal 98 - 10 7 mmol/L [facility] Glucose [Mass/Vol] 92 mg/dL Normal 74 - 106 mg/dL [facility] Hemoglobin (Bld) [Mass/Vol] 11.7 g/dL Abnormal 12.0 - 15.0 g/dL [facility] Potassium [Moles/Vol] 3.9 mmol/L Normal 3.5 - 5.1 mmol/L [facility] Protein [Mass/Vol] 7.2 g/dL 6.4-8.2 [facility] Sodium [Moles/Vol] 138 mmol/L Normal 136 - 145 mmol/L [facility] WBC (Bld) [#/Vol] 11.0 10*3/uL Normal 4.4 - 11.0 K/mm3 [facility] Determination of erythrocyte mean corpuscular volume (MCV)Ordered By: Vish Cook on 08-17-2023 MCV (RBC) [Entitic vol] 87.7 fL Normal 81 - 99 fL [facility] Erythrocyte distribution wid th ratioOrdered By: Vish Cook on 08-17-2023 Erythrocyte distribution width (RBC) [Ratio] 14.7 % Abnormal 11.6 - 14.6 [facility] Erythrocyte distribution wid th standard deviationOrdered By: Vish Cook on 08-17-2023 Erythrocyte distribution width (RBC) [Entitic vol] 47.1 fL 35.1-43.9 [facility] Laboratory - Chemistry and C hemistry - challengeon 08-17-2023 Albumin [Mass/Vol] 3.0 g/dL Abnormal 3.2 - 5.0 g/dL [facility]; [facility] Work Phone: AST [Catalytic activity/Vol] 19 U/L Normal 15 - 37 U/L [facility]; [facility] Work Phone: GFR/1.73 sq M.predicted among non-blacks MDRD (S/P/Bld) [Vol rate/Area] 59 mL/min/{1.73_m2} Abnormal [facility]; [facility] Work Phone: Magnesium [Mass/Vol] 9.9 mg/dL Normal 8.5 - 1 0.1 mg/dL [facility]; [facility] Work Phone: Laboratory - Chemistry and C hemistry - challengeOrdered By: Vish Cook on 08-17-2023 Albumin/Globulin [Mass ratio] 0.7 {ratio} Abnormal 0.9 - 2.4 {RATIO} [facility] ALP [Catalytic activity/Vol] 138 U/L 45-117 [facility] ALT [Catalytic activity/Vol] 17 U/L Normal 13 - 56 U/L [facility] CO2 [Moles/Vol] 29.0 mmol/L Normal 21.0 - 32.0 mmol/L [facility] Globulin (S) [Mass/Vol] 4.2 g/dL Normal 2.2 - 4.2 g/dL [facility] Urea nitrogen/Creatinine [Mass ratio] 17.8 mg/mg 10-20 [facility] Laboratory - Hematology and Cell countsOrdered By: Vish Cook on 08-17-2023 MCH (RBC) [Entitic mass] 27.1 pg Normal 27.0 - 32.0 pg [facility] MCHC (RBC) [Mass/Vol] 30.9 g/dL Abnormal 32 - 3 6 g/dL [facility] Platelet mean volume (Bld) [Entitic vol] 8.6 fL Normal 6.2 - 12.0 fL [facility] Platelets (Bld) [#/Vol] 440 10*3/uL Normal 150 - 450 K/mm3 [facility] No Panel Informationon 08-16 ALK P 138 U/L Abnormal 45 - 117 U/L [facility]; [facility] Work Phone: BUN/CRE 17.8 {RATIO} Normal 10 - 20 {RATIO} [facility]; [facility] Work Phone: EST GFR - AA 72 mL/min Normal [facility]; [facility] Work Phone: GAP 5 Normal 5 - 15 [facility]; [facility] Work Phone: RDW SD 47.1 fL Abnormal 35.1 - 43.9 fL [facility]; [facility] Work Phone: T PROT 7.2 g/dL Normal 6.4 - 8.2 g/dL [facility]; [facility] Work Phone: No Panel InformationOrdered By: Vish Cook on 08-17-2023 Estimated GFR (MDRD) Amer 72 mL/min >60 [facility] Comment on above: GFR Calc Estimated GFR (MDRD) Non-Af Amer 59 mL/min >60 [facility] Comment on above: Non- GFR Calc Serum or plasma calcium candice urement (mass/volume)Ordered By: Vish Cook on 08-17-2023 Calcium [Mass/Vol] 9.9 mg/dL 8.5-10.1 [facility] Serum or plasma creatinine m easurement (mass/volume)Ordered By: Vish Cook on 08-17-2023 Creatinine [Mass/Vol] 0.96 mg/dL Normal 0.55 - 1.02 mg/dL [facility] Comment on above: The validity of the calculated GFR & GFRAA in patients over 70 years has not been determined. Clinical correlation is essential. Serum or plasma urea nitroge n measurement (mass/volume)Ordered By: Vish Cook on 08-17-2023 Urea nitrogen [Mass/Vol] 17 mg/dL Normal 7 - 18 mg/dL [facility] Thin prep Papanicolaou smear with manual screeningOrdered By: Vish Cook on 08-17-2023 Thin prep Papanicolaou smear with manual screening 3.0 g/dL 3.2-5.0 [facility] Thin prep Papanicolaou smear with manual screening 19 U/L 15-37 [facility] Thin prep Papanicolaou smear with manual screening 5 5-15 [facility] Basophil percentageOrdered B y: Vish Cook on 08-14-2023 Basophil percentage 0 SEEN /hpf 0-5 [facility] Bilirubin Test strip Ql (U)O rdered By: Vish Cook on 08-14-2023 Bilirubin Ql (U) Negative Negative [facility] Culture, urineOrdered By: Ra destinee Cook on 08-14-2023 Bacteria identified Cx Nom (U) Culture exhibits no growth. [facility] Ketones Test strip Ql (U)Ord ered By: Vish Cook on 08-14-2023 Ketones Ql (U) Negative Negative [facility] Laboratory - Microbiology an d Antimicrobial susceptibilityon 08-14-2023 Bacteria identified Cx Nom (Unsp spec) 0 SEEN Normal [facility]. Work Phone: Laboratory - Urinalysison Mucus Ql (Urine sed) 0 SEEN Normal [facility].; [facility], [employer]. Work Phone: Mucus LM Ql (Urine sed)Order ed By: Vish Cook on 08-14-2023 Mucus Ql (Urine sed) 0 SEEN /hpf [facility] Nitrite ur dipstickOrdered B y: Vish Cook on 08-14-2023 Nitrite Ql (U) Negative Normal [facility] No Panel InformationOrdered By: Vish Cook on 08-14-2023 Urine RBC 0 SEEN /hpf 0-5 [facility] No Panel Informationon 08-13 BILIRUBIN URINE Negative Normal [facility], [employer]. Work Phone: EPI,SQUAMOUS 0 SEEN Normal 5 - 10 {/hpf} [facility]. Work Phone: GLUCOSE, UR Normal Normal [facility].; [facility] Work Phone: KETONE UR Negative Normal [facility].; [facility]. Work Phone: LEUK ESTERASE Negative Normal [facility].; [facility]. Work Phone: OCCULT BLOOD-UR Negative Normal [facility].; [facility]. Work Phone: pH UR 5.0 Normal 5.0 - 8.0 [facility].; [facility] H[facility]ITALYk[facility]. Work Phone: PROT DIPSTX Negative Normal [facility]. Work Phone: RBC 0 SEEN Normal 0 - 5 {/hpf} [facility] [employer].; [facility]. Work Phone: SP.GR. DIPSTX 1.010 Normal 1.002 - 1.030 [facility]. Work Phone: URC See Note Normal [facility]. Work Phone: UROBILI Normal Normal [facility]health[facility]; [facility]. Work Phone: WBC 0 SEEN Normal 0 - 5 {/hpf} [facility] Work Phone: Protein Test strip Ql (U)Ord ered By: Vish Cook on 08-14-2023 Protein Ql (U) Negative Negative [facility] Squamous epithelial cells de tection in urine sediment by light microscopyOrdered By: Vish Cook on 08-14-2023 Epithelial cells.squamous LM Ql (Urine sed) 0 SEEN /hpf 5-10 [facility] Urine blood detectionOrdered By: Vish Cook on 08-14-2023 RBC Ql (U) Negative Negative [facility] Urine clarityOrdered By: Vahe Cook on 08-14-2023 Clarity (U) Clear Normal [facility] Urine color determinationOrd ered By: Vish Cook on 08-14-2023 Color (U) Yellow Normal [facility] Urine glucose detectionOrder ed By: Vish Cook on 08-14-2023 Glucose Ql (U) Normal mg/dl Normal [facility] Urine leukocyte esterase det ection by dipstickOrdered By: Vish Cook on 08-14-2023 Leukocyte esterase Test strip Ql (U) Negative Negative [facility] Urine pHOrdered By: Vish Cook on 08-14-2023 pH (U) 5.0 [pH] 5.0 - 8.0 [facility] Urine sediment bacteria coun t by microscopy (number/high power field)Ordered By: Vish Cook on 08-14-2023 Bacteria LM.HPF (Urine sed) [#/Area] 0 /[HPF] None Seen [facility] Urine specific gravity measu rementOrdered By: Vish Cook on 08-14-2023 Specific gravity (U) [Rel density] 1.010 1.002-1.03 0 [facility] Urine urobilinogen measureme ntOrdered By: Vish Cook on 08-14-2023 Urobilinogen Ql (U) Normal mg/dl Normal [facility] Basophil percentageOrdered B y: Vish Cook on 05-25-2023 Potassium [Moles/Vol] 3.8 mmol/L Normal 3.5 - 5.1 mmol/L [facility] Absolute lymphocyte countOrd ered By: Pravin Cruz on 04-20-2023 Lymphocytes Auto (Unsp spec) [#/Vol] 1.38 10*3/uL 0.83-4.51 [facility] Automated blood hematocrit ( percentage)Ordered By: Pravin Cruz on 04-20-2023 Hematocrit (Bld) [Volume fraction] 31.2 % Abnormal 37 - 47 [facility] Basophil percentageOrdered B y: Pravin Cruz on 04-20-2023 Basophils/100 WBC (Bld) 0.3 % Normal 0 - 1 [facility] Chloride [Moles/Vol] 103 mmol/L Normal 98 - 10 7 mmol/L [facility] Eosinophils/100 WBC (Bld) 1.0 % Normal 0 - 5 [facility] Glucose [Mass/Vol] 92 mg/dL Normal 74 - 106 mg/dL [facility] Neutrophils (Bld) [#/Vol] 5.2 10*3/uL 2.0-7.7 [facility] Neutrophils/100 WBC (Bld) 65.0 % Normal 47 - 70 [facility] Potassium [Moles/Vol] 3.2 mmol/L Abnormal 3.5 - 5.1 mmol/L [facility] Sodium [Moles/Vol] 135 mmol/L Abnormal 136 - 145 mmol/L [facility] WBC (Bld) [#/Vol] 8.0 10*3/uL Normal 4.4 - 11.0 K/mm3 [facility] Blood erythrocytes count (nu mber/volume)Ordered By: Pravin Cruz on 04-20-2023 RBC (Bld) [#/Vol] 3.61 10*6/uL Abnormal 4.2 - 5.4 {M/mm3} [facility] Blood hemoglobin measurement (mass/volume)Ordered By: Pravin Cruz on 04-20-2023 Hemoglobin (Bld) [Mass/Vol] 10.0 g/dL Abnormal 12.0 - 15.0 g/dL [facility] Blood lymphocytes/100 leukoc ytesOrdered By: Pravin Cruz on 04-20-2023 Lymphocytes/100 WBC (Bld) 17.3 % Abnormal 19 - 41 [facility] Blood monocytes/100 leukocyt esOrdered By: Pravin Cruz on 04-20-2023 Monocytes/100 WBC (Bld) 16.0 % Abnormal 0 - 10 [facility] Blood platelet mean volumeOr dered By: Pravin Cruz on 04-20-2023 Platelet mean volume (Bld) [Entitic vol] 9.1 fL Normal 6.2 - 12.0 fL [facility] Determination of erythrocyte mean corpuscular volume (MCV)Ordered By: Pravin Cruz on 04-20-2023 MCV (RBC) [Entitic vol] 86.4 fL Normal 81 - 99 fL [facility] Laboratory - Chemistry and C hemistry - challengeon 04-20-2023 GFR/1.73 sq M.predicted among non-blacks MDRD (S/P/Bld) [Vol rate/Area] 71 mL/min/{1.73_m2} Normal [facility] IllB[facility]fire [employer] [facility]ITALMetconnexCommunity Memorial HospitalB[facility] [employer] Work Phone: Magnesium [Mass/Vol] 8.2 mg/dL Abnormal 8.5 - 1 0.1 mg/dL [facility]. Work Phone: Laboratory - Chemistry and C hemistry - challengeOrdered By: Pravin Cruz on 04-20-2023 CO2 [Moles/Vol] 25.0 mmol/L Normal 21.0 - 32.0 mmol/L [facility] Urea nitrogen/Creatinine [Mass ratio] 19.6 mg/mg 10-20 [facility] Laboratory - Hematology and Cell countson 04-20-2023 Nucleated RBC (Bld) [#/Vol] 0 10*3/uL Normal 0 - 5 [facility]; [facility] Work Phone: Laboratory - Hematology and Cell countsOrdered By: Pravin Cruz on 04-20-2023 Erythrocyte distribution width (RBC) [Entitic vol] 42.5 fL 35.1-43.9 [facility] Erythrocyte distribution width (RBC) [Ratio] 13.4 % Normal 11.6 - 14.6 [facility] Immature granulocytes/100 WBC (Bld) 0.400 % 0.0-0.9 [facility] Comment on above: IG% - Immature Granu locytes (promyelocytes, myelocytes and metamyelocytes) > 1% indicates that a LEFT SHIFT is Present. MCH (RBC) [Entitic mass] 27.7 pg Normal 27.0 - 32.0 pg [facility] Nucleated RBC/100 WBC (Bld) [Ratio] 0 % 0-5 [facility] MCHC [Mass/volume] by Automa jose maria countOrdered By: Pravin Cruz on 04-20-2023 MCHC (RBC) [Mass/Vol] 32.1 g/dL Normal 32 - 3 6 g/dL [facility] No Panel Informationon 04-20 Absolute Lymph 1.38 {X10_3/uL} Normal 0.83 - 4.51 {X10_3/uL} [facility]. Work Phone: Absolute Neut 5.2 {X10_3/uL} Normal 2.0 - 7.7 {X10_3/uL} [facility] HOSPITALYkone [facility] UniversityInitMe. Work Phone: BUN/CRE 19.6 {RATIO} Normal 10 - 20 {RATIO} [facility].; [facility]. Work Phone: ECRCL 41.00 ml/min Normal [facility].; [facility] IllM[facility] [employer] Work Phone: EST GFR - AA 86 mL/min Normal [facility].; [facility]. Work Phone: GAP 7 Normal 5 - 15 [facility].; [facility] IllInit[facility]. Work Phone: IG% 0.400 Normal 0.0 - 0.9 [facility].; [facility] IllInit[facility]. Work Phone: RDW SD 42.5 fL Normal 35.1 - 43.9 fL [facility].; [facility] [employer] [facility] IllInit[facility]. Work Phone: No Panel InformationOrdered By: Pravin Cruz on 04-20-2023 Estimated Creatinine Clearance Calc 41.00 ml/min [facility] Estimated GFR (MDRD) Amer 86 mL/min >60 [facility] Comment on above: GFR Calc Estimated GFR (MDRD) Non-Af Amer 71 mL/min >60 [facility] Comment on above: Non- GFR Calc Platelets bldOrdered By: Salinas Cruz on 04-20-2023 Platelets (Bld) [#/Vol] 291 10*3/uL Normal 150 - 450 K/mm3 [facility] Serum or plasma calcium candice urement (mass/volume)Ordered By: Pravin Cruz on 04-20-2023 Calcium [Mass/Vol] 8.2 mg/dL 8.5-10.1 [facility] Serum or plasma creatinine m easurement (mass/volume)Ordered By: Pravin Cruz on 04-20-2023 Creatinine [Mass/Vol] 0.82 mg/dL Normal 0.55 - 1.02 mg/dL [facility] Comment on above: The validity of the calculated GFR & GFRAA in patients over 70 years has not been determined. Clinical correlation is essential. Serum or plasma urea nitroge n measurement (mass/volume)Ordered By: Pravin Cruz on 04-20-2023 Urea nitrogen [Mass/Vol] 16 mg/dL Normal 7 - 18 mg/dL [facility] Thin prep Papanicolaou smear with manual screeningOrdered By: Pravin Cruz on 04-20-2023 Thin prep Papanicolaou smear with manual screening 7 5-15 [facility] Basophil percentageOrdered B y: Karon White on 04-17-2023 Bilirubin [Mass/Vol] 0.40 mg/dL Normal 0.20 - 1.00 mg/dL [facility] Comment on above: For patients on eltr ombopag therapy, use of Dimension [place] TBIL is not recommended. Protein [Mass/Vol] 5.8 g/dL 6.4-8.2 [facility] Culture, urineOrdered By: Do art Cohen on 04-17-2023 Bacteria identified Cx Nom (U) Presumptive E. coli [facility] Laboratory - Chemistry and C hemistry - challengeon 04-17-2023 AST [Catalytic activity/Vol] 16 U/L Normal 15 - 37 U/L [facility]. Work Phone: Chloride [Moles/Vol] 108 mmol/L Abnormal 98 - 10 7 mmol/L [facility]. Work Phone: CO2 [Moles/Vol] 25.0 mmol/L Normal 21.0 - 32.0 mmol/L [facility] Work Phone: Creatinine [Mass/Vol] 0.88 mg/dL Normal 0.55 - 1.02 mg/dL [facility]; [facility] Work Phone: GFR/1.73 sq M.predicted among non-blacks MDRD (S/P/Bld) [Vol rate/Area] 66 mL/min/{1.73_m2} Normal [facility]; [facility] Work Phone: Glucose [Mass/Vol] 86 mg/dL Normal 74 - 106 mg/dL [facility]; [facility] Work Phone: Magnesium [Mass/Vol] 7.9 mg/dL Abnormal 8.5 - 1 0.1 mg/dL [facility]; [facility] Work Phone: Potassium [Moles/Vol] 3.8 mmol/L Normal 3.5 - 5.1 mmol/L [facility]; [facility] Work Phone: Sodium [Moles/Vol] 138 mmol/L Normal 136 - 145 mmol/L [facility]; [facility] Work Phone: Urea nitrogen [Mass/Vol] 10 mg/dL Normal 7 - 18 mg/dL [facility]; [facility] Work Phone: Laboratory - Chemistry and C hemistry - challengeOrdered By: Karon Nunes on 04-17-2023 ALP [Catalytic activity/Vol] 101 U/L 45-117 [facility] ALT [Catalytic activity/Vol] 12 U/L Abnormal 13 - 56 U/L [facility] Globulin (S) [Mass/Vol] 3.3 g/dL Normal 2.2 - 4.2 g/dL [facility] Laboratory - Hematology and Cell countson 04-17-2023 Basophils/100 WBC (Bld) 0.6 % Normal 0 - 1 [facility]; [facility] Work Phone: Eosinophils/100 WBC (Bld) 0.6 % Normal 0 - 5 [facility]; [facility]. Work Phone: Erythrocyte distribution width (RBC) [Ratio] 13.3 % Normal 11.6 - 14.6 [facility]; [facility] Work Phone: Hematocrit (Bld) [Volume fraction] 32.4 % Abnormal 37 - 47 [facility]; [facility] Work Phone: Hemoglobin (Bld) [Mass/Vol] 9.9 g/dL Abnormal 12.0 - 15.0 g/dL [facility]; [facility]. Work Phone: Lymphocytes/100 WBC (Bld) 13.6 % Abnormal 19 - 41 [facility]; [facility] Work Phone: MCH (RBC) [Entitic mass] 27.3 pg Normal 27.0 - 32.0 pg [facility]; [facility]. Work Phone: MCHC (RBC) [Mass/Vol] 30.6 g/dL Abnormal 32 - 3 6 g/dL [facility]; [facility], [facility]. Work Phone: MCV (RBC) [Entitic vol] 89.5 fL Normal 81 - 99 fL [facility]; [facility] Work Phone: Monocytes/100 WBC (Bld) 11.3 % Abnormal 0 - 10 [facility]; [facility] Work Phone: Neutrophils/100 WBC (Bld) 73.6 % Abnormal 47 - 70 [facility]; [facility] Work Phone: Nucleated RBC (Bld) [#/Vol] 0 10*3/uL Normal 0 - 5 [facility]; [facility] Work Phone: Platelet mean volume (Bld) [Entitic vol] 9.0 fL Normal 6.2 - 12.0 fL [facility]; [facility] Work Phone: Platelets (Bld) [#/Vol] 302 10*3/uL Normal 150 - 450 K/mm3 [facility]; [facility] Work Phone: RBC (Bld) [#/Vol] 3.62 10*6/uL Abnormal 4.2 - 5.4 {M/mm3} [facility]; [facility] Work Phone: WBC (Bld) [#/Vol] 6.9 10*3/uL Normal 4.4 - 11.0 K/mm3 [facility]; [facility] Work Phone: No Panel Informationon 04-17 Absolute Lymph 0.94 {X10_3/uL} Normal 0.83 - 4.51 {X10_3/uL} [facility]; [facility] Work Phone: Absolute Neut 5.1 {X10_3/uL} Normal 2.0 - 7.7 {X10_3/uL} [facility]. Work Phone: ALK P 101 U/L Normal 45 - 117 U/L [facility].; [facility]. Work Phone: BUN/CRE 11.4 {RATIO} Normal 10 - 20 {RATIO} [facility].; [facility], [facility]. Work Phone: ECRCL 37.44 ml/min Normal [facility].; [facility]. Work Phone: EST GFR - AA 79 mL/min Normal [facility].; [facility]. Work Phone: GAP 5 Normal 5 - 15 [facility]. Work Phone: IG% 0.300 Normal 0.0 - 0.9 [facility]; [facility]. Work Phone: RDW SD 43.8 fL Normal 35.1 - 43.9 fL [facility] Work Phone: T PROT 5.8 g/dL Abnormal 6.4 - 8.2 g/dL [facility].; [facility]. Work Phone: No Panel InformationOrdered By: Karon Nunes on 04-17-2023 Streptococcus pneumoniae Antigen (M [facility] Respiratory pathogens detect ion panel by molecular detection methodOrdered By: Karon Manju on 04-17-2023 Respiratory pathogens DNA and RNA panel ZAID+probe (Resp) [facility] Serum or plasma albumin candice urement (mass/volume)Ordered By: Karon Nunes on 04-17-2023 Albumin [Mass/Vol] 2.5 g/dL Abnormal 3.2 - 5.0 g/dL [facility] Serum or plasma albumin/glob ulin mass ratioOrdered By: Karon Nunes on 04-17-2023 Albumin/Globulin [Mass ratio] 0.8 {ratio} Abnormal 0.9 - 2.4 {RATIO} [facility] Thin prep Papanicolaou smear with manual screeningOrdered By: Karon Nunes on 04-17-2023 Thin prep Papanicolaou smear with manual screening 16 U/L 15-37 [facility] Urine Legionella pneumophila antigen detectionOrdered By: Karon Nunes on 04-17-2023 L. pneumophila Ag Ql (U) [facility] Basophil percentageOrdered B y: Nicholas Cohen on 04-16-2023 Basophil percentage 10-25 SEEN /hpf 0-5 [facility] Bilirubin Test strip Ql (U)O rdered By: Nicholas Cohen on 04-16-2023 Bilirubin Ql (U) Negative Negative [facility] Ketones Test strip Ql (U)Ord ered By: Nicholas Cohen on 04-16-2023 Ketones Ql (U) Negative Negative [facility] Laboratory - Chemistry and C hemistry - challengeOrdered By: Karon Nunes on 04-16-2023 Magnesium [Mass/Vol] 2.0 mg/dL Normal 1.6 - 2 .6 mg/dL [facility] Laboratory - Chemistry and C hemistry - challengeon 04-16-2023 Albumin [Mass/Vol] 3.1 g/dL Abnormal 3.2 - 5.0 g/dL [facility]; [facility] Work Phone: Albumin/Globulin [Mass ratio] 0.8 {ratio} Abnormal 0.9 - 2.4 {RATIO} [facility]; [facility] Work Phone: ALT [Catalytic activity/Vol] 17 U/L Normal 13 - 56 U/L [facility]healthSocial [facility]; [place] [employer] [facility] Work Phone: AST [Catalytic activity/Vol] 18 U/L Normal 15 - 37 U/L [facility]; [facility] Work Phone: Bilirubin [Mass/Vol] 0.50 mg/dL Normal 0.20 - 1.00 mg/dL [facility]; [facility] Work Phone: Chloride [Moles/Vol] 101 mmol/L Normal 98 - 10 7 mmol/L [facility]; [facility] Work Phone: CO2 [Moles/Vol] 29.0 mmol/L Normal 21.0 - 32.0 mmol/L [facility]; [facility] Work Phone: Creatinine [Mass/Vol] 0.95 mg/dL Normal 0.55 - 1.02 mg/dL [facility]; [facility] Work Phone: GFR/1.73 sq M.predicted among non-blacks MDRD (S/P/Bld) [Vol rate/Area] 60 mL/min/{1.73_m2} Normal [facility]; [facility] Work Phone: Globulin (S) [Mass/Vol] 3.9 g/dL Normal 2.2 - 4.2 g/dL [facility]; [facility] Work Phone: Glucose [Mass/Vol] 100 mg/dL Normal 74 - 106 mg/dL [facility]; [facility] Work Phone: Magnesium [Mass/Vol] 15 mg/dL Abnormal [facility]; [facility] Work Phone: Magnesium [Mass/Vol] 8.7 mg/dL Normal 8.5 - 1 0.1 mg/dL [facility]; [facility] Work Phone: Potassium [Moles/Vol] 3.3 mmol/L Abnormal 3.5 - 5.1 mmol/L [facility]; [facility]. Work Phone: Sodium [Moles/Vol] 135 mmol/L Abnormal 136 - 145 mmol/L [facility]; [facility]. Work Phone: Urea nitrogen [Mass/Vol] 14 mg/dL Normal 7 - 18 mg/dL [facility]; [facility] Work Phone: Laboratory - Microbiology an d Antimicrobial susceptibilityon 04-16-2023 Bacteria identified Cx Nom (Unsp spec) 1+ Normal [facility]; [facility] Work Phone: L. pneumophila Ag Ql (U) See Note Normal [facility] Work Phone: Respiratory pathogens DNA and RNA 12b panel ZAID+probe (Unsp spec) See Note Normal [facility]; [facility]. Work Phone: S. pneumoniae Ag LA Ql (Unsp spec) See Note Normal [facility]. Work Phone: Laboratory - Urinalysison Mucus Ql (Urine sed) 0 SEEN Normal [facility]; [facility] Work Phone: Mucus LM Ql (Urine sed)Order ed By: Nicholas Cohen on 04-16-2023 Mucus Ql (Urine sed) 0 SEEN /hpf [facility] Nitrite ur dipstickOrdered B y: Nicholas Cohen on 04-16-2023 Nitrite Ql (U) Negative Normal [facility] No Panel InformationOrdered By: Nicholas Cohen on 04-16-2023 Troponin I High Sensitivity 14 pg/mL 3.0-54.0 [facility] Comment on above: Please Note: New Shaniqua t Units and Gender Specific Reference Ranges. For more information see Policy Stat Procedure [place] High Sensitivity Troponin (TNIH) and attachments. No Panel Informationon 04-16 ALK P 117 U/L Normal 45 - 117 U/L [facility] CenterBrand[facility]Init[facility].; [facility]. Work Phone: BILIRUBIN URINE Negative Normal [facility] IllInit[facility].; [place] [employer] [facility] Ill[facility]. Work Phone: BUN/CRE 14.7 {RATIO} Normal 10 - 20 {RATIO} [facility] CenterBrandp[facility] IllInitMe.; [employer] [facility] IllInit[facility]. Work Phone: ECRCL 34.69 ml/min Normal [facility] Center[facility]Init[facility].; [facility] [employer] [facility]. Work Phone: EPI,SQUAMOUS 0 SEEN Normal 5 - 10 {/hpf} [facility] CenterBrand[facility]Init[facility].; [facility], [employer]. Work Phone: EST GFR - AA 72 mL/min Normal [facility] CenterBrand[facility]Init[facility].; [facility], [employer]. Work Phone: GAP 5 Normal 5 - 15 [facility] CenterBrand[facility]InitMe.; [employer] phorus [facility] [employer] [facility] IllInit[facility]. Work Phone: GLUCOSE, UR Normal Normal [facility] [employer] [facility] IllInitMe.; [employer] phorus [facility] [employer] [facility]Init[facility]. Work Phone: KETONE UR Negative Normal [facility] CenterBrand[facility]InitMe.; [employer] ph[employer] [facility]. Work Phone: LEUK ESTERASE 500 /ul Abnormal [facility].; [facility]. Work Phone: [phone] See Note Normal [facility]. Work Phone: OCCULT BLOOD-UR 25 /ul Abnormal [facility].; [facility]. Work Phone: pH UR 7.0 Normal 5.0 - 8.0 [facility].; [facility]. Work Phone: RBC 0-5 SEEN Normal 0 - 5 {/hpf} [facility]. Work Phone: SP.GR. DIPSTX 1.010 Normal 1.002 - 1.030 [facility].; [facility], [facility]. Work Phone: T PROT 7.0 g/dL Normal 6.4 - 8.2 g/dL [facility]; [facility], [facility]. Work Phone: TROPONIN-I HS 14 pg/mL Normal 3.0 - 54.0 pg/mL [facility]; [facility]. Work Phone: URC See Note Normal [facility]. Work Phone: UROBILI Normal Normal [facility]. Work Phone: WBC 10-25 SEEN Normal 0 - 5 {/hpf} [facility]. Work Phone: Protein Test strip Ql (U)Ord ered By: Nicholas Cohen on 04-16-2023 Protein Ql (U) 15 mg/dl Negative [facility] Squamous epithelial cells de tection in urine sediment by light microscopyOrdered By: Nicholas Cohen on 04-16-2023 Epithelial cells.squamous LM Ql (Urine sed) 0 SEEN /hpf 5-10 [facility] Urine blood detectionOrdered By: Nicholas Cohen on 04-16-2023 RBC Ql (U) 25 /ul Negative [facility] RBC Ql (U) 0-5 SEEN /hpf 0-5 [facility] Urine clarityOrdered By: Geremias Cohen on 04-16-2023 Clarity (U) Sl. Cloudy Normal [facility] Urine color determinationOrd ered By: Nicholas Cohen on 04-16-2023 Color (U) Yellow Normal [facility] Urine glucose detectionOrder ed By: Nicholas Cohen on 04-16-2023 Glucose Ql (U) Normal mg/dl Normal [facility] Urine leukocyte esterase det ection by dipstickOrdered By: Nicholas Cohen on 04-16-2023 Leukocyte esterase Test strip Ql (U) 500 /ul Negative [facility] Urine pHOrdered By: Nicholas bishop on 04-16-2023 pH (U) 7.0 [pH] 5.0 - 8.0 [facility] Urine sediment bacteria coun t by microscopy (number/high power field)Ordered By: Nicholas Cohen on 04-16-2023 Bacteria LM.HPF (Urine sed) [#/Area] 1 /[HPF] None Seen [facility] Urine specific gravity measu rementOrdered By: Nicholas Cohen on 04-16-2023 Specific gravity (U) [Rel density] 1.010 1.002-1.03 0 [facility] Urobilinogen Auto test strip Ql (U)Ordered By: Nicholas Cohen on 04-16-2023 Urobilinogen Ql (U) Normal mg/dl Normal [facility] Culture, urineOrdered By: Julia Grigsby on 04-06-2023 Bacteria identified Cx Nom (U) GPC Poss Enterococcus sp [facility] Basophil percentageOrdered B y: Elliott Grigsby on 04-05-2023 Basophil percentage 0-5 SEEN /hpf 0-5 [facility] Comment on above: Previous reported re sult: 0 SEEN /hpfEdited by: KAMAR on 04/05/23:1616 AMENDED REPORT 04/05/23 1616 WBC previously reported as: 0 SEEN /hpf Bilirubin Test strip Ql (U)O rdered By: Elliott Grigsby on 04-05-2023 Bilirubin Ql (U) 1 mg/dL Negative [facility] Comment on above: COLOR OF URINE MAY A FFECT DIPSTICK RESULTS. Calcium oxalate crystals det ection in urine sediment by light microscopyOrdered By: Elliott Grigsby on 04-05-2023 Calcium oxalate crystals LM Ql (Urine sed) 2+ /hpf [facility] Hyaline casts LM.LPF (Urine sed) [#/Area]Ordered By: Elliott Grigsby on 04-05-2023 Hyaline casts (Urine sed) [#/Area] 0 /[LPF] 0-5 [facility] Ketones Test strip Ql (U)Ord ered By: Elliott Grigsby on 04-05-2023 Ketones Ql (U) Negative Negative [facility] - Chemistry and C hemistry - challengeon 04-05-2023 Bilirubin Ql (U) Small (1+) [facility] Glucose Ql (U) Negative [facility] Ketones Ql (U) Small (15+) [facility] pH (U) 5.0 [pH] [facility] Specific gravity (U) [Rel density] 1.015 [facility] Urobilinogen (U) [Mass/Vol] 1 mg/dL [facility] - Hematology and Cell countson 04-05-2023 Hemoglobin Ql (U) Negative [facility] - Specimen inform ationon 04-05-2023 Clarity (U) Clear [facility] Color (U) Opal [facility] - Urinalysison Nitrite Ql (U) Positive [facility] Protein Ql (U) 3+ [facility] Magnesium ammonium phosphate crystal detectionOrdered By: Elliott Grigsby on 04-05-2023 Triple phosphate crystals LM Ql (Urine sed) 0 SEEN /hpf [facility] Mucus LM Ql (Urine sed)Order ed By: Elliott Grigsby on 10-22-2023 Mucus Ql (Urine sed) 0 SEEN /hpf [facility] Nitrite Test strip Ql (U)Ord ered By: Elliott Grigsby on 04-05-2023 Nitrite Ql (U) Negative Negative [facility] No Panel InformationOrdered By: Elliott Grigsby on 04-05-2023 Urine Transitional Epithelial Cells 0 SEEN /hpf 0-5 [facility] No Panel Informationon 04-05 Urine Leukocytes Negatve [facility] Urine Non-Hemolyzed Blood [facility] Protein Test strip Ql (U)Ord ered By: Elliott Grigsby on 04-05-2023 Protein Ql (U) 30 mg/dl Negative [facility] Squamous epithelial cells de tection in urine sediment by light microscopyOrdered By: Elliott Grigsby on 04-05-2023 Epithelial cells.squamous LM Ql (Urine sed) 0-5 SEEN /hpf 5-10 [facility] Comment on above: Previous reported re sult: 0 SEEN /hpfEdited by: KAMAR on 04/05/23:1616 AMENDED REPORT 04/05/23 1616 SQUAM EPI previously reported as: 0 SEEN /hpf Urine blood detectionOrdered By: Elliott Grigsby on 04-05-2023 RBC Ql (U) 10 /ul Negative [facility] RBC Ql (U) 0 SEEN /hpf 0-5 [facility] Urine clarityOrdered By: Skyler Grigsby on 04-05-2023 Clarity (U) Clear Clear [facility] Urine coarse granular cast d etectionOrdered By: Elliott Grigsby on 04-05-2023 Coarse Granular Casts LM Ql (Urine sed) 0 SEEN /lpf 0-5 /lpf [facility] Urine color determinationOrd ered By: Elliott Grigbsy on 04-05-2023 Color (U) Yellow Yellow [facility] Urine glucose detectionOrder ed By: Elliott Grigsby on 04-05-2023 Glucose Ql (U) Normal mg/dl Normal [facility] Urine leukocyte esterase det ection by dipstickOrdered By: Elliott Grigsby on 04-05-2023 Leukocyte esterase Test strip Ql (U) 25 /ul Negative [facility] Urine pHOrdered By: Elliott dickerson on 04-05-2023 pH (U) 6.0 [pH] 5.0 - 8.0 [facility] Urine sediment bacteria coun t by microscopy (number/high power field)Ordered By: Elliott Grigsby on 04-05-2023 Bacteria LM.HPF (Urine sed) [#/Area] 0 /[HPF] None Seen [facility] Urine sediment erythrocyte c ast detection by light microscopyOrdered By: Elliott Grigsby on 04-05-2023 RBC casts LM Ql (Urine sed) 0 SEEN /lpf None Seen [facility] Urine sediment fine granular cast count by microscopy (number/low power field)Ordered By: Elliott Grigsby on 04-05-2023 Fine Granular Casts LM.LPF (Urine sed) [#/Area] 0 SEEN /lpf 0-5 [facility] Urine sediment leukocyte bianca t count by microscopy (number/low power field)Ordered By: Elliott Grigsby on 04-05-2023 WBC casts LM.LPF (Urine sed) [#/Area] 0 SEEN /lpf None Seen [facility] Urine sediment renal epithel ial cell count by microscopy (number/high power field)Ordered By: Elliott Grigsby on 04-05-2023 Epithelial cells.renal LM.HPF (Urine sed) [#/Area] 0 /[HPF] 0-5 [facility] Urine sediment unidentified crystal count by microscopy (number/high powered field)Ordered By: Elliott Grigsby on 04-05-2023 Unidentified crystals LM.HPF (Urine sed) [#/Area] 0 SEEN /hpf None Seen [facility] Urine sediment uric acid cry stal count by microscopy (number/high power field)Ordered By: Elliott Grigsby on 04-05-2023 Urate crystals LM.HPF (Urine sed) [#/Area] 0 /[HPF] [facility] Urine specific gravity measu rementOrdered By: Elliott Grigsby on 04-05-2023 Specific gravity (U) [Rel density] 1.025 1.002-1.03 0 [facility] U[facility]ilin[facility] Auto test strip Ql (U)Ordered By: Elliott Grigsby on 04-05-2023 Urobilinogen Ql (U) 1 mg/dl Normal [facility] Waxy casts detection in urin e sediment by light microscopyOrdered By: Elliott Grigsby on 04-05-2023 Waxy casts LM Ql (Urine sed) 0 SEEN /lpf None Seen [facility] .Auto Diffon 11-14-2022 Basophil, Absolute 0.1 10 3/mcL Normal 0.0-0.3 [facility] ([place]) Comment on above: Performed By: #### A DIFF, ANEU, CBC #### [address] [address] Basophils/100 WBC (Bld) 1.0 % Normal 0.0 - 2.5 % [facility] ([place]) Comment on above: Performed By: #### A DIFF, ANEU, CBC #### [address] [address] Eosinophil, Absolute 0.1 10 3/mcL Normal 0.0-0.7 [facility] ([place]) Comment on above: Performed By: #### A DIFF, ANEU, CBC #### [address] [address] Eosinophils/100 WBC (Bld) 2.0 % Normal 0.0 - 6.0 % [facility] ([place]) Comment on above: Performed By: #### A DIFF, ANEU, CBC #### [address] [address] Lymphocyte, Absolute 1.9 10 3/mcL Normal 0.9-4.3 [facility] ([place]) Comment on above: Performed By: #### A DIFF, ANEU, CBC #### [address] [address] Lymphocytes/100 WBC (Bld) 25.6 % Normal 20.0 - 40.0 % [facility] ([place]) Comment on above: Performed By: #### A DIFF, ANEU, CBC #### [address] [address] Monocyte, Absolute 0.6 10 3/mcL Normal 0.1-1.4 [facility] ([place]) Comment on above: Performed By: #### A DIFF, ANEU, CBC #### [address] [address] Monocytes/100 WBC (Bld) 8.5 % Normal 2.0 - 13.0 % [facility] ([place]) Comment on above: Performed By: #### A DIFF, ANEU, CBC #### [address] [address] Neutrophils/100 WBC (Bld) 62.9 % Normal 50.0 - 75.0 % [facility] ([place]) Comment on above: Performed By: #### A DIFF, ANEU, CBC #### [address] [address] .NEUABSon 11-14-2022 Neutrophil, Absolute 4.7 10 3/mcL Normal 2.3-8.1 [facility] ([place]) Comment on above: Performed By: #### A DIFF, ANEU, CBC #### [address] [address] CBCon 11-14-2022 Erythrocyte distribution width (RBC) [Ratio] 16.2 % Abnormal 11.5 - 15.5 % [facility] ([place]) Comment on above: Performed By: #### A DIFF, ANEU, CBC #### [place] [address] Hematocrit (Bld) [Volume fraction] 34.8 % Normal 34.0 - 46.0 % [facility] ([place]) Comment on above: Performed By: #### A DIFF, ANEU, CBC #### [place] [address] Hgb 11.3 G/dL Low 12.0-16.0 [facility] ([place]) Comment on above: Performed By: #### A DIFF, ANEU, CBC #### [place] [address] MCH (RBC) [Entitic mass] 28.8 pg Normal 27.0 - 33.0 pg [facility] ([place]) Comment on above: Performed By: #### A DIFF, ANEU, CBC #### [place] [address] MCHC 32.5 G/dL Normal 32.0-36.0 [facility] ([place]) Comment on above: Performed By: #### A DIFF, ANEU, CBC #### [place] [address] MCV (RBC) [Entitic vol] 88.6 fL Normal 80.0 - 99.0 fL [facility] ([place]) Comment on above: Performed By: #### A DIFF, ANEU, CBC #### [place] [id number] [place] [address] Platelet 362 10 3/mcL Normal 150-450 [facility] ([place]) Comment on above: Performed By: #### A DIFF, ANEU, CBC #### [address] [address] Platelet mean volume (Bld) [Entitic vol] 7.1 fL Normal 6.6 - 10.5 fL [facility] ([place]) Comment on above: Performed By: #### A DIFF, ANEU, CBC #### [address] [address] RBC 3.92 10 6/mcL Low 4.10-5.30 [facility] ([place]) Comment on above: Performed By: #### A DIFF, ANEU, CBC #### [address] [address] WBC 7.5 10 3/mcL Normal 4.5-10.8 [facility] ([place]) Comment on above: Performed By: #### A DIFF, ANEU, CBC #### [address] [address] Laboratory - Hematology and Cell countson 11-13-2022 Basophils (Bld) [#/Vol] 0.1 {10^3/mcL} Normal 0.0 - 0.3 {10^3/mcL} [facility] Work Phone: Eosinophils (Bld) [#/Vol] 0.1 {10^3/mcL} Normal 0.0 - 0.7 {10^3/mcL} [facility] Work Phone: Hemoglobin (Bld) [Mass/Vol] 11.3 g/dL Abnormal 12.0 - 16.0 g/dL [facility] Work Phone: Lymphocytes (Bld) [#/Vol] 1.9 {10^3/mcL} Normal 0.9 - 4.3 {10^3/mcL} [facility] [employer] [facility] Work Phone: MCHC (RBC) [Mass/Vol] 32.5 g/dL Normal 32.0 - 36.0 g/dL [facility] [employer] [facility]. Work Phone: Monocytes (Bld) [#/Vol] 0.6 {10^3/mcL} Normal 0.1 - 1.4 {10^3/mcL} [facility] [employer] [facility]. Work Phone: Neutrophils (Bld) [#/Vol] 4.7 {10^3/mcL} Normal 2.3 - 8.1 {10^3/mcL} [facility] [employer] [facility] Work Phone: Platelets (Bld) [#/Vol] 362 {10^3/mcL} Normal 150 - 450 {10^3/mcL} [facility] [employer] [facility]. Work Phone: RBC (Bld) [#/Vol] 3.92 {10^6/mcL} Abnormal 4.10 - 5.30 {10^6/mcL} [facility] [employer] [facility]. Work Phone: WBC (Bld) [#/Vol] 7.5 {10^3/mcL} Normal 4.5 - 10 .8 {10^3/mcL} [facility] [employer] [facility] Work Phone: No Panel Informationon 11-13 Basophil, Absolute 0.1 {10^3/mcL} Normal 0.0 - 0 .3 {10^3/mcL} [facility], [facility]. Work Phone: Eosinophil, Absolute 0.1 {10^3/mcL} Normal 0.0 - 0.7 {10^3/mcL} [facility], [facility]. Work Phone: Lymphocyte, Absolute 1.9 {10^3/mcL} Normal 0.9 - 4.3 {10^3/mcL} [facility].; [facility], [facility]. Work Phone: Monocyte, Absolute 0.6 {10^3/mcL} Normal 0.1 - 1 .4 {10^3/mcL} [facility].; [facility], [facility]. Work Phone: Neutrophil, Absolute 4.7 {10^3/mcL} Normal 2.3 - 8.1 {10^3/mcL} [facility].; [facility], [facility]. Work Phone: Laboratory - Chemistry and C hemistry - challengeon 06-30-2022 Albumin [Mass/Vol] 1.0 g/dL Normal 0.9 - 1.6 [facility], [facility] Albumin [Mass/Vol] 3.4 g/dL Normal 3.4 - 5.0 g/dL [facility]; [facility], [facility]. ALT [Catalytic activity/Vol] 23 U/L Normal 14 - 59 U/L [facility], [facility] ALT No additional P-5'-P [Catalytic activity/Vol] 23 U/L Normal 14 - 59 U/L [facility], [facility]. Anion gap [Moles/Vol] 10 mmol/L Normal 10 - 2 0 mmol/L [facility], [facility] AST [Catalytic activity/Vol] 31 U/L Normal 13 - 39 U/L [facility]; [facility] Bilirubin [Mass/Vol] 0.3 mg/dL Normal 0.2 - 1 .0 mg/dL [facility]; [facility] Calcium [Mass/Vol] 9.0 mg/dL Normal 8.5 - 10. 1 mg/dL [facility]; [facility] Chloride [Moles/Vol] 102 mmol/L Normal 98 - 10 7 mmol/L [facility]; [facility] Cholesterol [Mass/Vol] 193 mg/dL Normal 0 - 240 mg/dL [facility]; [facility] Cholesterol in HDL [Mass or moles/Vol] 50 mg/dL Normal 40 - 60 mg/dL [facility]; [facility] Cholesterol in LDL [Mass/Vol] 128 mg/dL Normal 0 - 129 mg/dL [facility]; [facility] Cholesterol.total/Cho lesterol in HDL [Mass ratio] 3.9 {ratio} Normal 0.0 - 5.0 [facility]; [facility] CO2 [Moles/Vol] 32.3 mmol/L Abnormal 21.0 - 32.0 mmol/L [facility]; [facility] Creatinine [Mass/Vol] 0.84 mg/dL Normal 0.55 - 1.02 mg/dL [facility]; [facility] GFR/1.73 sq M.predicted among blacks MDRD (S/P/Bld) [Vol rate/Area] mL/min/{1.73_m2} Normal 60 - 999 {ML/MINUTE } [facility] GFR/1.73 sq M.predicted MDRD (S/P/Bld) [Vol rate/Area] mL/min/{1.73_m2} Normal 60 - 999 {ML/MINUTE } [facility]; [facility] Globulin (S) [Mass/Vol] 3.3 g/dL Normal 1.5 - 3.8 g/dL [facility]; [facility] Glucose [Mass/Vol] 92 mg/dL Normal 74 - 106 mg/dL [facility]; [facility] Lipid 1996 panel Normal [facility]; [facility] Potassium [Moles/Vol] 3.6 mmol/L Normal 3.5 - 5.1 mmol/L [facility]; [facility] Protein [Mass/Vol] 6.7 g/dL Normal 6.4 - 8.2 g/dL [facility]; [facility] Sodium [Moles/Vol] 141 mmol/L Normal 136 - 145 mmol/L [facility]; [facility] Triglyceride [Mass/Vol] 74 mg/dL Normal 0 - 150 mg/dL [facility]; [facility] TSH Qn 2.16 m[IU]/L Normal 0.35 - 3.74 {uIU/ml} [facility]; [facility] Urea nitrogen [Mass/Vol] 14 mg/dL Normal 7 - 18 mg/dL [facility]; [facility], [facility] Urea nitrogen/Creatinine [Mass ratio] 17 {ratio} Normal 0 - 30 {ratio} [facility]; [facility], [facility] Laboratory - Hematology and Cell countson 06-30-2022 Basophils (Bld) [#/Vol] 0.00 {x10EE3/UL} Normal 0.00 - 0.10 {x10EE3/UL } [facility]; [facility], [facility]. Basophils/100 WBC (Bld) 0.6 % Normal 0.0 - 2.0 % [facility], [facility] Eosinophils (Bld) [#/Vol] 0.10 {x10EE3/UL} Normal 0.00 - 0.50 {x10EE3/UL } [facility], [facility] Eosinophils/100 WBC (Bld) 2.0 % Normal 0.0 - 7.0 % [facility], [facility] Erythrocyte distribution width (RBC) [Ratio] 13.1 % Normal 12.0 - 15.6 % [facility], [facility] Hematocrit (Bld) [Volume fraction] 35.3 % Normal 34.0 - 46.0 % [facility], [facility] Hemoglobin (Bld) [Mass/Vol] 11.3 g/dL Abnormal 12.0 - 16.0 g/dL [facility].; [facility], [facility] Lymphocytes (Bld) [#/Vol] 1.50 {x10EE3/UL} Normal 0.80 - 2.80 {x10EE3/UL } [facility], [facility] Lymphocytes/100 WBC (Bld) 23.7 % Normal 20.0 - 45.0 % [facility].; [facility], [facility]. MCH (RBC) [Entitic mass] 28 pg Normal 27 - 33 pg [facility].; [facility], [facility]. MCHC (RBC) [Mass/Vol] 32 {X10_3} Normal 32 - 3 6 {X10_3} [facility], [facility]. MCV (RBC) [Entitic vol] 88 fL Normal 80 - 99 fL [facility].; [facility]. Monocytes (Bld) [#/Vol] 1.00 {x10EE3/UL} Normal 0.20 - 1.00 {x10EE3/UL } [facility], [facility]. Monocytes/100 WBC (Bld) 15.0 % Abnormal 0.0 - 10.0 % [facility]. Morphology Sonny (Bld) [Interp] N/A Normal [facility].; [facility]. Neutrophils (Bld) [#/Vol] 3.80 {x10EE3/UL} Normal 1.50 - 7.10 {x10EE3/UL } [facility]. Neutrophils/100 WBC (Bld) 58.7 % Normal 46.0 - 76.0 % [facility]. Platelet mean volume (Bld) [Entitic vol] 7.6 fL Normal 6.6 - 10.5 fL [facility].; [facility], [facility]. Platelets (Bld) [#/Vol] 461 {x10EE3/UL} Abnormal 150 - 450 {x10EE3/UL } [facility], [employer]. RBC (Bld) [#/Vol] 4.00 {x_10EE6/UL} Abnormal 4.10 - 5.30 {x_10EE6/U L} [facility], [facility]. WBC (Bld) [#/Vol] 6.5 {x_10EE3/UL} Normal 4.5 - 10.8 {x_10EE3/U L} [facility]. No Panel Informationon 06-30 AGE 82 {years} Normal [facility].; [facility]. ALK PHOS 111 U/L Normal 46 - 116 U/L [facility] CBC + DIFF Normal [facility], [facility]. CMP with eGFR Normal [facility], [facility]. MANUAL DIFF N/A Normal [facility].; [facility]. Absolute lymphocyte counton 02-15-2022 Lymphocytes Auto (Unsp spec) [#/Vol] 2.15 10*3/uL 0.83-4.51 [facility] Work Phone: Basophil percentageon 2021 Basophils/100 WBC (Bld) 0.4 % 0-1 [facility] Work Phone: Chloride [Moles/Vol] 107 mmol/L 98-107 [facility] Work Phone: Eosinophils/100 WBC (Bld) 2.4 % 0-5 [facility] Work Phone: Glucose [Mass/Vol] 98 mg/dL 74-106 [facility] Work Phone: [phone] Neutrophils (Bld) [#/Vol] 3.5 10*3/uL 2.0-7.7 [facility] Work Phone: Neutrophils/100 WBC (Bld) 52.1 % 47-70 [facility] Work Phone: Potassium [Moles/Vol] 4.3 mmol[facility]L [facility].5-5.[facility] Work [facility]: Sodium [Moles/Vol] 139 mmol/L 136-145 [facility] Work Phone: WBC (Bld) [#/Vol] 6.8 10*3/uL 4.4-11.0 [facility] Work Phone: Blood erythrocytes count (nu mber/volume)on 02-15-2022 RBC (Bld) [#/Vol] 3.76 10*6/uL 4.2-5.4 [facility] Work Phone: Blood hemoglobin measurement (mass/volume)on 02-15-2022 Hemoglobin (Bld) [Mass/Vol] 11.4 g/dL 12.0-15.0 [facility] Work Phone: Blood lymphocytes/100 leukoc yteson 02-15-2022 Lymphocytes/100 WBC (Bld) 31.7 % 19-41 [facility] Work Phone: Blood monocytes/100 leukocyt eson 02-15-2022 Monocytes/100 WBC (Bld) 13.1 % 0-10 [facility] Work Phone: Blood platelet mean volumeon 02-15-2022 Platelet mean volume (Bld) [Entitic vol] 9.0 fL 6.2-12.0 [facility] Work Phone: Determination of erythrocyte mean corpuscular volume (MCV)on 02-15-2022 MCV (RBC) [Entitic vol] 95.2 fL 81-99 [facility] Work Phone: Hematocrit Auto (Bld) [Volum e fraction]on 02-15-2022 Hematocrit (Bld) [Volume fraction] 35.8 % 37-47 [facility] Work Phone: Laboratory - Chemistry and C hemistry - challengeon 02-15-2022 CO2 [Moles/Vol] 26.0 mmol/L 21.0-32.0 [facility] Work Phone: Urea nitrogen/Creatinine [Mass ratio] 23.6 mg/mg 10-20 [facility] Work Phone: Laboratory - Hematology and Cell countson 02-15-2022 Erythrocyte distribution width (RBC) [Entitic vol] 46.2 fL 35.1-43.9 [facility] Work Phone: Erythrocyte distribution width (RBC) [Ratio] 13.3 % 11.6-14.6 [facility] Work Phone: Immature granulocytes/100 WBC (Bld) 0.300 % 0.0-0.9 [facility] Work Phone: Comment on above: IG% - Immature Granu locytes (promyelocytes, myelocytes and metamyelocytes) > 1% indicates that a LEFT SHIFT is Present. MCH (RBC) [Entitic mass] 30.3 pg 27.0-32.0 [facility] Work Phone: Nucleated RBC/100 WBC (Bld) [Ratio] 0 % 0-5 [facility] Work Phone: MCHC Auto (RBC) [Mass/Vol]on 02-15-2022 MCHC (RBC) [Mass/Vol] 31.8 g/dL 32-36 [facility] Work Phone: No Panel Informationon 02-15 Estimated Creatinine Clearance Calc 35.94 ml/min [facility] Work Phone: Estimated GFR (MDRD) Amer 64 mL/min >60 [facility] Work Phone: Comment on above: GFR Calc Estimated GFR (MDRD) Non-Af Amer 53 mL/min >60 [facility] Work Phone: Comment on above: Non- GFR Calc Platelets bldon 02-15-2022 Platelets (Bld) [#/Vol] 296 10*3/uL 150-450 [facility] Work Phone: Serum or plasma calcium candice urement (mass/volume)on 02-15-2022 Calcium [Mass/Vol] 9.7 mg/dL 8.5-10.1 [facility] Work Phone: Serum or plasma creatinine m easurement (mass/volume)on 02-15-2022 Creatinine [Mass/Vol] 1.06 mg/dL 0.55-1.02 [facility] Work Phone: Comment on above: The validity of the calculated GFR & GFRAA in patients over 70 years has not been determined. Clinical correlation is essential. Serum or plasma urea nitroge n measurement (mass/volume)on 02-15-2022 Urea nitrogen [Mass/Vol] 25 mg/dL 7-18 [facility] Work Phone: Thin prep Papanicolaou smear with manual screeningon 02-15-2022 Thin prep Papanicolaou smear with manual screening 6 5-15 [facility] Work Phone: Serum or plasma folate measu rement (mass/volume)on 02-11-2022 Folate [Mass/Vol] 12.20 ng/mL 3.1-55.4 [facility] Work Phone: Absolute lymphocyte counton 12-28-2021 Lymphocytes Auto (Unsp spec) [#/Vol] 1.79 10*3/uL 0.83-4.51 [facility] Work Phone: Basophil percentageon 2021 Basophils/100 WBC (Bld) 0.7 % 0-1 [facility] Work Phone: Chloride [Moles/Vol] 108 mmol/L 98-107 [facility] Work Phone: Eosinophils/100 WBC (Bld) 2.7 % 0-5 [facility] Work Phone: Glucose [Mass/Vol] 96 mg/dL 74-106 [facility] Work Phone: Neutrophils (Bld) [#/Vol] 1.8 10*3/uL 2.0-7.7 [facility] Work Phone: Neutrophils/100 WBC (Bld) 39.9 % 47-70 [facility] Work Phone: Potassium [Moles/Vol] 3.8 mmol/L 3.5-5.1 [facility] Work Phone: Sodium [Moles/Vol] 142 mmol/L 136-145 [facility] Work Phone: WBC (Bld) [#/Vol] 4.4 10*3/uL 4.4-11.0 [facility] Work Phone: Blood erythrocytes count (nu mber/volume)on 12-28-2021 RBC (Bld) [#/Vol] 3.53 10*6/uL 4.2-5.4 [facility] Work Phone: Blood hemoglobin measurement (mass/volume)on 12-28-2021 Hemoglobin (Bld) [Mass/Vol] 10.8 g/dL 12.0-15.0 [facility] Work Phone: Blood lymphocytes/100 leukoc yteson 12-28-2021 Lymphocytes/100 WBC (Bld) 40.6 % 19-41 [facility] Work Phone: Blood monocytes/100 leukocyt eson 12-28-2021 Monocytes/100 WBC (Bld) 15.6 % 0-10 [facility] Work Phone: Blood platelet mean volumeon 12-28-2021 Platelet mean volume (Bld) [Entitic vol] 8.8 fL 6.2-12.0 [facility] Work Phone: Determination of erythrocyte mean corpuscular volume (MCV)on 12-28-2021 MCV (RBC) [Entitic vol] 96.3 fL 81-99 [facility] Work Phone: Hematocrit Auto (Bld) [Volum e fraction]on 12-28-2021 Hematocrit (Bld) [Volume fraction] 34.0 % 37-47 [facility] Work Phone: Laboratory - Chemistry and C hemistry - challengeon 12-28-2021 CO2 [Moles/Vol] 29.0 mmol/L 21.0-32.0 [facility] Work Phone: Urea nitrogen/Creatinine [Mass ratio] 29.6 mg/mg 10-20 [facility] Work Phone: Laboratory - Hematology and Cell countson 12-28-2021 Erythrocyte distribution width (RBC) [Entitic vol] 49.6 fL 35.1-43.9 [facility] Work Phone: Erythrocyte distribution width (RBC) [Ratio] 13.9 % 11.6-14.6 [facility] Work Phone: Immature granulocytes/100 WBC (Bld) 0.500 % 0.0-0.9 [facility] Work Phone: Comment on above: IG% - Immature Granu locytes (promyelocytes, myelocytes and metamyelocytes) > 1% indicates that a LEFT SHIFT is Present. MCH (RBC) [Entitic mass] 30.6 pg 27.0-32.0 [facility] Work Phone: Nucleated RBC/100 WBC (Bld) [Ratio] 0 % 0-5 [facility] Work Phone: MCHC Auto (RBC) [Mass/Vol]on 12-28-2021 MCHC (RBC) [Mass/Vol] 31.8 g/dL 32-36 [facility] Work Phone: No Panel Informationon 12-28 Estimated Creatinine Clearance Calc 38.75 ml/min [facility] Work Phone: Estimated GFR (MDRD) Amer 114 mL/min >60 [facility] Work Phone: Comment on above: GFR Calc Estimated GFR (MDRD) Non-Af Amer 95 mL/min >60 [facility] Work Phone: Comment on above: Non- GFR Calc Platelets bldon 12-28-2021 Platelets (Bld) [#/Vol] 345 10*3/uL 150-450 [facility] Work Phone: Serum or plasma calcium candice urement (mass/volume)on 12-28-2021 Calcium [Mass/Vol] 8.8 mg/dL 8.5-10.1 [facility] Work Phone: Serum or plasma creatinine m easurement (mass/volume)on 12-28-2021 Creatinine [Mass/Vol] 0.64 mg/dL 0.55-1.02 [facility] Work Phone: Comment on above: The validity of the calculated GFR & GFRAA in patients over 70 years has not been determined. Clinical correlation is essential. Serum or plasma urea nitroge n measurement (mass/volume)on 12-28-2021 Urea nitrogen [Mass/Vol] 19 mg/dL 7-18 [facility] Work Phone: Thin prep Papanicolaou smear with manual screeningon 12-28-2021 Thin prep Papanicolaou smear with manual screening 5 5-15 [facility] Work Phone: Laboratory - Chemistry and C hemistry - challengeon 12-24-2021 Cobalamin (Vitamin B12) [Mass/Vol] 354 pg/mL 211-911 [facility] Work Phone: Absolute lymphocyte counton 12-21-2021 Lymphocytes Auto (Unsp spec) [#/Vol] 2.08 10*3/uL 0.83-4.51 [facility] Work Phone: Basophil percentageon 2021 Basophils/100 WBC (Bld) 0.8 % 0-1 [facility] Work Phone: Chloride [Moles/Vol] 103 mmol/L 98-107 [facility] Work Phone: Eosinophils/100 WBC (Bld) 2.3 % 0-5 [facility] Work Phone: [phone] Glucose [Mass/Vol] 100 mg/dL 74-106 [facility] Work Phone: Comment on above: Fasting Glucose resu lt from 100 to 125 mg/dL suggests IMPAIRED HOMEOSTASIS per A.D.A. criteria. Neutrophils (Bld) [#/Vol] 2.3 10*3/uL 2.0-7.7 [facility] Work Phone: Neutrophils/100 WBC (Bld) 43.7 % 47-70 [facility] Work Phone: [phone] Potassium [Moles/Vol] 3.7 mmol/L 3.5-5.1 [facility] Work Phone: Sodium [Moles/Vol] 139 mmol/L 136-145 [facility] Work Phone: WBC (Bld) [#/Vol] 5.2 10*3/uL 4.4-11.0 [facility] Work Phone: Blood erythrocytes count (nu mber/volume)on 12-21-2021 RBC (Bld) [#/Vol] 3.80 10*6/uL 4.2-5.4 [facility] Work Phone: Blood hemoglobin measurement (mass/volume)on 12-21-2021 Hemoglobin (Bld) [Mass/Vol] 11.3 g/dL 12.0-15.0 [facility] Work Phone: Blood lymphocytes/100 leukoc yteson 12-21-2021 Lymphocytes/100 WBC (Bld) 39.8 % 19-41 [facility] Work Phone: [phone] Blood monocytes/100 leukocyt eson 12-21-2021 Monocytes/100 WBC (Bld) 12.3 % 0-10 [facility] Work Phone: Blood platelet mean volumeon 12-21-2021 Platelet mean volume (Bld) [Entitic vol] 8.6 fL 6.2-12.0 [facility] Work Phone: Determination of erythrocyte mean corpuscular volume (MCV)on 12-21-2021 MCV (RBC) [Entitic vol] 96.3 fL 81-99 [facility] Work Phone: Hematocrit Auto (Bld) [Volum e fraction]on 12-21-2021 Hematocrit (Bld) [Volume fraction] 36.6 % 37-47 [facility] Work Phone: Laboratory - Chemistry and C hemistry - challengeon 12-21-2021 CO2 [Moles/Vol] 31.0 mmol/L 21.0-32.0 [facility] Work Phone: Urea nitrogen/Creatinine [Mass ratio] 28.6 mg/mg 10-20 [facility] Work Phone: Laboratory - Hematology and Cell countson 12-21-2021 Erythrocyte distribution width (RBC) [Entitic vol] 49.7 fL 35.1-43.9 [facility] Work Phone: Erythrocyte distribution width (RBC) [Ratio] 14.0 % 11.6-14.6 [facility] Work Phone: Immature granulocytes/100 WBC (Bld) 1.100 % 0.0-0.9 [facility] Work Phone: Comment on above: IG% - Immature Granu locytes (promyelocytes, myelocytes and metamyelocytes) > 1% indicates that a LEFT SHIFT is Present. MCH (RBC) [Entitic mass] 29.7 pg 27.0-32.0 [facility] Work Phone: Nucleated RBC/100 WBC (Bld) [Ratio] 0 % 0-5 [facility] Work Phone: MCHC Auto (RBC) [Mass/Vol]on 12-21-2021 MCHC (RBC) [Mass/Vol] 30.9 g/dL 32-36 [facility] Work Phone: No Panel Informationon 12-21 Estimated Creatinine Clearance Calc 38.75 ml/min [facility] Work Phone: Estimated GFR (MDRD) Amer 93 mL/min >60 [facility] Work Phone: Comment on above: GFR Calc Estimated GFR (MDRD) Non-Af Amer 77 mL/min >60 [facility] Work Phone: Comment on above: Non- GFR Calc Platelets bldon 12-21-2021 Platelets (Bld) [#/Vol] 426 10*3/uL 150-450 [facility] Work Phone: Serum or plasma calcium candice urement (mass/volume)on 12-21-2021 Calcium [Mass/Vol] 9.4 mg/dL 8.5-10.1 [facility] Work Phone: Serum or plasma creatinine m easurement (mass/volume)on 12-21-2021 Creatinine [Mass/Vol] 0.77 mg/dL 0.55-1.02 [facility] Work Phone: Comment on above: The validity of the calculated GFR & GFRAA in patients over 70 years has not been determined. Clinical correlation is essential. Serum or plasma urea nitroge n measurement (mass/volume)on 12-21-2021 Urea nitrogen [Mass/Vol] 22 mg/dL 7-18 [facility] Work Phone: Thin prep Papanicolaou smear with manual screeningon 12-21-2021 Thin prep Papanicolaou smear with manual screening 5 5-15 [facility] Work Phone: Basophil percentageon 2021 Basophil percentage 0 SEEN /hpf 0-5 [facility] Work Phone: Basophil percentage 4.7 mg/dL 2.5-4.9 [facility] Work Phone: Bilirubin [Mass/Vol] 0.20 mg/dL 0.20-1.00 [facility] Work Phone: Comment on above: For patients on eltr ombopag therapy, use of Dimension [place] TBIL is not recommended. Protein [Mass/Vol] 6.9 g/dL 6.4-8.2 [facility] Work Phone: Bilirubin Test strip Ql (U)o n 12-20-2021 Bilirubin Ql (U) Negative Negative [facility] Work Phone: Ketones Test strip Ql (U)on 12-20-2021 Ketones Ql (U) Negative Negative [facility] Work Phone: Laboratory - Chemistry and C hemistry - challengeon 12-20-2021 ALP [Catalytic activity/Vol] 76 U/L 45-117 [facility] Work Phone: ALT [Catalytic activity/Vol] 50 U/L 13-56 [facility] Work Phone: Globulin (S) [Mass/Vol] 3.8 g/dL 2.2-4.2 [facility] Work Phone: Mucus LM Ql (Urine sed)on Mucus Ql (Urine sed) 0 SEEN /hpf [facility] Work Phone: Nitrite Test strip Ql (U)on 12-20-2021 Nitrite Ql (U) Negative Negative [facility] Work Phone: Protein Test strip Ql (U)on 12-20-2021 Protein Ql (U) Negative Negative [facility] Work Phone: Serum or plasma albumin candice urement (mass/volume)on 12-20-2021 Albumin [Mass/Vol] 3.1 g/dL 3.2-5.0 [facility] Work Phone: Serum or plasma albumin/glob ulin mass ratioon 12-20-2021 Albumin/Globulin [Mass ratio] 0.8 {ratio} 0.9-2.4 [facility] Work Phone: Squamous epithelial cells de tection in urine sediment by light microscopyon 12-20-2021 Epithelial cells.squamous LM Ql (Urine sed) 0-5 SEEN /hpf 5-10 [facility] Work Phone: Thin prep Papanicolaou smear with manual screeningon 12-20-2021 Thin prep Papanicolaou smear with manual screening 35 U/L 15-37 [facility] Work Phone: Urine blood detectionon - RBC Ql (U) Negative Negative [facility] Work Phone: RBC Ql (U) 0 SEEN /hpf 0-5 [facility] Work Phone: Urine clarityon 12-20-2021 Clarity (U) Clear Clear [facility] Work Phone: Urine color determinationon 12-20-2021 Color (U) Yellow Yellow [facility] Work Phone: Urine glucose detectionon Glucose Ql (U) Normal mg/dl Normal [facility] Work Phone: Urine leukocyte esterase det ection by dipstickon 12-20-2021 Leukocyte esterase Test strip Ql (U) Negative Negative [facility] Work Phone: Urine pHon 12-20-2021 pH (U) 6.0 [pH] 5.0 - 8.0 [facility] Work Phone: Urine sediment bacteria coun t by microscopy (number/high power field)on 12-20-2021 Bacteria LM.HPF (Urine sed) [#/Area] 0 /[HPF] None Seen [facility] Work Phone: Urine specific gravity measu rementon 12-20-2021 Specific gravity (U) [Rel density] 1.015 1.002-1.03 0 [facility] Work Phone: Urobilinogen Auto test strip Ql (U)on 12-20-2021 Urobilinogen Ql (U) Normal mg/dl Normal [facility] Work Phone: Laboratory - Chemistry and C hemistry - challengeon 12-17-2021 Magnesium [Mass/Vol] 2.0 mg/dL 1.6-2.6 [facility] Work Phone: Basophil percentageon 2021 Chloride [Moles/Vol] 109 mmol/L 98-107 [facility] Work Phone: Glucose [Mass/Vol] 103 mg/dL 74-106 [facility] Work Phone: Comment on above: Fasting Glucose resu lt from 100 to 125 mg/dL suggests IMPAIRED HOMEOSTASIS per A.D.A. criteria. Potassium [Moles/Vol] 3.4 mmol/L 3.5-5.1 [facility] Work Phone: Sodium [Moles/Vol] 138 mmol/L 136-145 [facility] Work Phone: Laboratory - Chemistry and C hemistry - challengeon 12-13-2021 CK [Catalytic activity/Vol] 839 U/L 26-192 [facility] Work Phone: CO2 [Moles/Vol] 21.0 mmol/L 21.0-32.0 [facility] Work Phone: Urea nitrogen/Creatinine [Mass ratio] 14.4 mg/mg 10-20 [facility] Work Phone: No Panel Informationon 12-13 Estimated Creatinine Clearance Calc 38.75 ml/min [facility] Work Phone: Estimated GFR (MDRD) Amer 135 mL/min >60 [facility] Work Phone: Comment on above: GFR Calc Estimated GFR (MDRD) Non-Af Amer 111 mL/min >60 [facility] Work Phone: Comment on above: Non- GFR Calc Serum or plasma calcium candice urement (mass/volume)on 12-13-2021 Calcium [Mass/Vol] 7.6 mg/dL 8.5-10.1 [facility] Work Phone: Serum or plasma creatinine m easurement (mass/volume)on 12-13-2021 Creatinine [Mass/Vol] 0.56 mg/dL 0.55-1.02 [facility] Work Phone: Comment on above: The validity of the calculated GFR & GFRAA in patients over 70 years has not been determined. Clinical correlation is essential. Serum or plasma urea nitroge n measurement (mass/volume)on 12-13-2021 Urea nitrogen [Mass/Vol] 8 mg/dL 7-18 [facility] Work Phone: Thin prep Papanicolaou smear with manual screeningon 12-13-2021 Thin prep Papanicolaou smear with manual screening 8 5-15 [facility] Work Phone: Basophil percentageon 2021 Basophil percentage 1.6 mg/dL 2.5-4.9 [facility] Work Phone: Laboratory - Chemistry and C hemistry - challengeon 12-12-2021 Magnesium [Mass/Vol] 2.3 mg/dL 1.6-2.6 [facility] Work Phone: Absolute lymphocyte counton 12-11-2021 Lymphocytes Auto (Unsp spec) [#/Vol] 1.05 10*3/uL 0.83-4.51 [facility] Work Phone: Basophil percentageon 2021 Basophils/100 WBC (Bld) 0.1 % 0-1 [facility] Work Phone: Bilirubin [Mass/Vol] 0.30 mg/dL 0.20-1.00 [facility] Work Phone: [phone] Comment on above: For patients on eltr ombopag therapy, use of Dimension [place] TBIL is not recommended. Eosinophils/100 WBC (Bld) 0.0 % 0-5 [facility] Work Phone: [phone] Neutrophils (Bld) [#/Vol] 10.8 10*3/uL 2.0-7.7 [facility] Work Phone: [phone] Neutrophils/100 WBC (Bld) 78.6 % 47-70 [facility] Work Phone: [phone] Protein [Mass/Vol] 6.3 g/dL 6.4-8.2 [facility] Work Phone: [phone] WBC (Bld) [#/Vol] 13.8 10*3/uL 4.4-11.0 [facility] Work Phone: Blood erythrocytes count (nu mber/volume)on 12-11-2021 RBC (Bld) [#/Vol] 3.71 10*6/uL 4.2-5.4 [facility] Work Phone: [phone] Blood hemoglobin measurement (mass/volume)on 12-11-2021 Hemoglobin (Bld) [Mass/Vol] 11.1 g/dL 12.0-15.0 [facility] Work Phone: [phone] Blood lymphocytes/100 leukoc yteson 12-11-2021 Lymphocytes/100 WBC (Bld) 7.6 % 19-41 [facility] Work Phone: [phone] Blood monocytes/100 leukocyt eson 12-11-2021 Monocytes/100 WBC (Bld) 13.1 % 0-10 [facility] Work Phone: [phone] Blood platelet mean volumeon 12-11-2021 Platelet mean volume (Bld) [Entitic vol] 9.4 fL 6.2-12.0 [facility] Work Phone: Determination of erythrocyte mean corpuscular volume (MCV)on 12-11-2021 MCV (RBC) [Entitic vol] 91.9 fL 81-99 [facility] Work Phone: Hematocrit Auto (Bld) [Volum e fraction]on 12-11-2021 Hematocrit (Bld) [Volume fraction] 34.1 % 37-47 [facility] Work Phone: Laboratory - Chemistry and C hemistry - challengeon 12-11-2021 ALP [Catalytic activity/Vol] 80 U/L 45-117 [facility] Work Phone: ALT [Catalytic activity/Vol] 45 U/L 13-56 [facility] Work Phone: Globulin (S) [Mass/Vol] 3.5 g/dL 2.2-4.2 [facility] Work Phone: Laboratory - Hematology and Cell countson 12-11-2021 Erythrocyte distribution width (RBC) [Entitic vol] 47.1 fL 35.1-43.9 [facility] Work Phone: Erythrocyte distribution width (RBC) [Ratio] 13.9 % 11.6-14.6 [facility] Work Phone: Immature granulocytes/100 WBC (Bld) 0.600 % 0.0-0.9 [facility] Work Phone: Comment on above: IG% - Immature Granu locytes (promyelocytes, myelocytes and metamyelocytes) > 1% indicates that a LEFT SHIFT is Present. MCH (RBC) [Entitic mass] 29.9 pg 27.0-32.0 [facility] Work Phone: Nucleated RBC/100 WBC (Bld) [Ratio] 0 % 0-5 [facility] Work Phone: MCHC Auto (RBC) [Mass/Vol]on 12-11-2021 MCHC (RBC) [Mass/Vol] 32.6 g/dL 32-36 [facility]: Platelets bldon 12-11-2021 Platelets (Bld) [#/Vol] 276 10*3/uL 150-450 [facility] Work Phone: Review by pathologiston 11-14 Pathologist review Sonny (Unsp spec) [Interp] Reviewed [facility] Work Phone: Comment on above: Previous reported re sult: Pham dean Edited by: MAXI on 12/11/21:1238Neutrophilic leukocytosis.Clinical correlation necessary.Jagdish Helton M.D. 12/11/21 AMENDED REPORT 12/11/21 1238 PATH REV previously reported as: October foll Serum or plasma albumin candice urement (mass/volume)on 12-11-2021 Albumin [Mass/Vol] 2.8 g/dL 3.2-5.0 [facility] Work Phone: Serum or plasma albumin/glob ulin mass ratioon 12-11-2021 Albumin/Globulin [Mass ratio] 0.8 {ratio} 0.9-2.4 [facility] Work Phone: Serum procalcitonin measurem enton 12-11-2021 Procalcitonin [Mass/Vol] 4.19 ng/mL 0.00-0.09 [facility] Work Phone: Comment on above: A procalcitonin [...] smear with manual screening 123 U/L 15-37 [facility] Work Phone: Absolute lymphocyte counton 12-10-2021 Lymphocytes Auto (Unsp spec) [#/Vol] 1.00 10*3/uL 0.83-4.51 [facility] Work Phone: Amorphous sediment detection in urine sediment by light microscopyon 12-10-2021 Amorphous sediment LM Ql (Urine sed) 2+ [facility] Work Phone: Basophil percentageon 2021 Basophil percentage 50-100 SEEN /hpf 0-5 [facility] Work Phone: Basophils/100 WBC (Bld) 0.1 % 0-1 [facility] Work Phone: Bilirubin [Mass/Vol] 0.60 mg/dL 0.20-1.00 [facility] Work Phone: Comment on above: For patients on eltr ombopag therapy, use of Dimension [place] TBIL is not recommended. Chloride [Moles/Vol] 103 mmol/L 98-107 [facility] Work Phone: Eosinophils/100 WBC (Bld) 0.0 % 0-5 [facility] Work Phone: Glucose [Mass/Vol] 130 mg/dL 74-106 [facility] Work Phone: Comment on above: Fasting Glucose resu lt greater than or equal to 126 mg/dL suggests DIABETES MELLITUS per A.D.A. criteria. Neutrophils (Bld) [#/Vol] 10.9 10*3/uL 2.0-7.7 [facility] Work Phone: Neutrophils/100 WBC (Bld) 79.5 % 47-70 [facility] Work Phone: Potassium [Moles/Vol] 2.7 mmol/L 3.5-5.1 [facility] Work Phone: Comment on above: Critical Result(s) C alled at: 23:42:52 12/10/2021 by: CRISTAL BURLEY to M Long [employer]. Results read back by same. Protein [Mass/Vol] 7.2 g/dL 6.4-8.2 [facility] Work Phone: Sodium [Moles/Vol] 137 mmol/L 136-145 [facility] Work Phone: WBC (Bld) [#/Vol] 13.7 10*3/uL 4.4-11.0 [facility] Work Phone: Bilirubin Test strip Ql (U)o n 12-10-2021 Bilirubin Ql (U) Negative Negative [facility] Work Phone: Blood erythrocytes count (nu mber/volume)on 12-10-2021 RBC (Bld) [#/Vol] 4.08 10*6/uL 4.2-5.4 [facility] Work Phone: Blood hemoglobin measurement (mass/volume)on 12-10-2021 Hemoglobin (Bld) [Mass/Vol] 12.3 g/dL 12.0-15.0 [facility] Work Phone: Blood lymphocytes/100 leukoc yteson 12-10-2021 Lymphocytes/100 WBC (Bld) 7.3 % 19-41 [facility] Work Phone: Blood manual differential co mment interpretation (narrative result)on 12-10-2021 Manual differential comment Sonny (Bld) [Interp] SCANNED [facility] Work Phone: Comment on above: MONOCYTOSIS NOTED Blood monocytes/100 leukocyt eson 12-10-2021 Monocytes/100 WBC (Bld) 12.5 % 0-10 [facility] Work Phone: Blood platelet mean volumeon 12-10-2021 Platelet mean volume (Bld) [Entitic vol] 9.2 fL 6.2-12.0 [facility] Work Phone: Determination of erythrocyte mean corpuscular volume (MCV)on 12-10-2021 MCV (RBC) [Entitic vol] 89.5 fL 81-99 [facility] Work Phone: Hematocrit Auto (Bld) [Volum e fraction]on 12-10-2021 Hematocrit (Bld) [Volume fraction] 36.5 % 37-47 [facility] Work Phone: Ketones Test strip Ql (U)on 12-10-2021 Ketones Ql (U) 150 mg/dl Negative [facility] Work Phone: Comment on above: CRITICAL VALUE *HCRI TICAL VALUE VERIFIED. CALLED TO Lida ROBERTS RN ER/ 0013 Cristal Nicholas.RESULTS READ BACK BY SAME. Laboratory - Chemistry and C hemistry - challengeon 12-10-2021 ALP [Catalytic activity/Vol] 95 U/L 45-117 [facility] Work Phone: [phone] ALT [Catalytic activity/Vol] 48 U/L 13-56 [facility] Work Phone: CK [Catalytic activity/Vol] 5736 U/L 26-192 [facility] Work Phone: CO2 [Moles/Vol] 20.0 mmol/L 21.0-32.0 [facility] Work Phone: Globulin (S) [Mass/Vol] 4.0 g/dL 2.2-4.2 [facility] Work Phone: Magnesium [Mass/Vol] 2.2 mg/dL 1.6-2.6 [facility] Work Phone: Urea nitrogen/Creatinine [Mass ratio] 30.9 mg/mg 10-20 [facility] Work Phone: Laboratory - Hematology and Cell countson 12-10-2021 Erythrocyte distribution width (RBC) [Entitic vol] 45.7 fL 35.1-43.9 [facility] Work Phone: [phone] Erythrocyte distribution width (RBC) [Ratio] 13.9 % 11.6-14.6 [facility] Work Phone: Immature granulocytes/100 WBC (Bld) 0.600 % 0.0-0.9 [facility] Work Phone: Comment on above: IG% - Immature Granu locytes (promyelocytes, myelocytes and metamyelocytes) > 1% indicates that a LEFT SHIFT is Present. MCH (RBC) [Entitic mass] 30.1 pg 27.0-32.0 [facility] Work Phone: Nucleated RBC/100 WBC (Bld) [Ratio] 0 % 0-5 [facility] Work Phone: MCHC Auto (RBC) [Mass/Vol]on 12-10-2021 MCHC (RBC) [Mass/Vol] 33.7 g/dL 32-36 [facility] Work Phone: Mucus LM Ql (Urine sed)on Mucus Ql (Urine sed) 0 SEEN /hpf [facility] Work Phone: Nitrite Test strip Ql (U)on 12-10-2021 Nitrite Ql (U) Negative Negative [facility] Work Phone: No Panel Informationon 12-10 Estimated Creatinine Clearance Calc 48.07 ml/min [facility] Work Phone: Estimated GFR (MDRD) Amer 84 mL/min >60 [facility] Work Phone: Comment on above: GFR Calc Estimated GFR (MDRD) Non-Af Amer 69 mL/min >60 [facility] Work Phone: Comment on above: Non- GFR Calc Platelets bldon 12-10-2021 Platelets (Bld) [#/Vol] 283 10*3/uL 150-450 [facility] Work Phone: Protein Test strip Ql (U)on 12-10-2021 Protein Ql (U) 100 mg/dl Negative [facility] Work Phone: Review by pathologiston 11-14 Pathologist review Sonny (Unsp spec) [Interp] May foll [facility] Work Phone: Serum or plasma albumin candice urement (mass/volume)on 12-10-2021 Albumin [Mass/Vol] 3.2 g/dL 3.2-5.0 [facility] Work Phone: Serum or plasma albumin/glob ulin mass ratioon 12-10-2021 Albumin/Globulin [Mass ratio] 0.8 {ratio} 0.9-2.4 [facility] Work Phone: Serum or plasma calcium candice urement (mass/volume)on 12-10-2021 Calcium [Mass/Vol] 8.7 mg/dL 8.5-10.1 [facility] Work Phone: Serum or plasma creatinine m easurement (mass/volume)on 12-10-2021 Creatinine [Mass/Vol] 0.84 mg/dL 0.55-1.02 [facility] Work Phone: Comment on above: The validity of the calculated GFR & GFRAA in patients over 70 years has not been determined. Clinical correlation is essential. Serum or plasma urea nitroge n measurement (mass/volume)on 12-10-2021 Urea nitrogen [Mass/Vol] 26 mg/dL 7-18 [facility] Work Phone: Squamous epithelial cells de tection in urine sediment by light microscopyon 12-10-2021 Epithelial cells.squamous LM Ql (Urine sed) 0 SEEN /hpf 5-10 [facility] Work Phone: Thin prep Papanicolaou smear with manual screeningon 12-10-2021 Thin prep Papanicolaou smear with manual screening 133 U/L 15-37 [facility] Work Phone: Thin prep Papanicolaou smear with manual screening 14 5-15 [facility] Work Phone: Urine blood detectionon 11-14 RBC Ql (U) 250 /ul Negative [facility] Work Phone: RBC Ql (U) 0-5 SEEN /hpf 0-5 [facility] Work Phone: Urine clarityon 12-10-2021 Clarity (U) Sl. Cloudy Clear [facility] Work Phone: Urine color determinationon 12-10-2021 Color (U) Yellow Yellow [facility] Work Phone: Urine glucose detectionon Glucose Ql (U) Normal mg/dl Normal [facility] Work Phone: Urine leukocyte esterase det ection by dipstickon 12-10-2021 Leukocyte esterase Test strip Ql (U) 100 /ul Negative [facility] Work Phone: Urine pHon 12-10-2021 pH (U) 6.0 [pH] 5.0 - 8.0 [facility] Work Phone: Urine sediment bacteria coun t by microscopy (number/high power field)on 12-10-2021 Bacteria LM.HPF (Urine sed) [#/Area] 4 /[HPF] None Seen [facility] Work Phone: Urine specific gravity measu rementon 12-10-2021 Specific gravity (U) [Rel density] 1.020 1.002-1.03 0 [facility] Work Phone: Urobilinogen Auto test strip Ql (U)on 12-10-2021 Urobilinogen Ql (U) 1 mg/dl Normal [facility] Work Phone: CT Up Ext w/o Contrast Lefto n 07-03-2020 CT Up Ext w/o Contrast Left Patient Name: SAPNA BULLARD Computed Tomography ACCESSION EXAM DATE/TIME PROCEDURE ORDERING PROVIDER [id number] 07/03/2020 13:[address] Up Ext w/o Contrast [id number] -DAX SHANKS Left CPT code 06062 Reason For Exam (CT Up Ext w/o [...] Transcribed Date and Time: 07/04/2020 11:26 Normal [facility] Culture, urine Bacteria identified Cx Nom (U) Presumptive E. coli [facility] Work Phone: Bacteria identified Cx Nom (U) Positive [facility] Work Phone: Laboratory - Microbiology an d Antimicrobial susceptibility Bacteria identified Cx Nom (Bld) No growth in 5 days. [facility] Work Phone: Vital Signs Date Time Vital Sign Value Performing Clinician Facility 03-14-2025 13:24-0400 Body height 165.[address] Genevieve Wu MD Work Phone: [facility] 02-19-2025 08:52-0400 Body temperature 97.6 [degF] Dr. Genevieve Wu MD Work Phone: [facility] 02-19-2025 08:52-0400 Diastolic blood pressure 54 mm[Hg] Dr. Genevieve Wu MD Work Phone: [facility] 02-19-2025 08:52-0400 Heart rate 85 /min Dr. Genevieve Wu MD Work Phone: [facility] 02-19-2025 08:52-0400 Respiratory rate 18 /min Dr. Genevieve Wu MD Work Phone: [facility] 02-19-2025 08:52-0400 SaO2% (BldA) [Mass fraction] 98 % Dr. Genevieve Wu MD Work Phone: [facility] 02-19-2025 08:52-0400 Systolic blood pressure 113 mm[Hg] Dr. Genevieve Wu MD Work Phone: [facility] 02-14-2025 16:26-0400 Body height 165.[address] Genevieve Wu MD Work Phone: [facility] 02-14-2025 16:26-0400 Body weight 55.[address] Genevieve Wu MD Work Phone: [facility] 02-14-2025 15:37-0400 Body mass index (BMI) [Ratio] 20.2 kg/m2 Dr. Genevieve Wu MD Work Phone: [facility] 02-14-2025 15:00-0400 Body temperature 98.9 [degF] Dr. Genevieve Wu MD Work Phone: [facility] 02-14-2025 15:00-0400 Diastolic blood pressure 78 mm[Hg] Dr. Genevieve Wu MD Work Phone: [facility] 02-14-2025 15:00-0400 Heart rate 89 /min Dr. Genevieve Wu MD Work Phone: [facility] 02-14-2025 15:00-0400 Respiratory rate 16 /min Dr. Genevieve Wu MD Work Phone: [facility] 02-14-2025 15:00-0400 SaO2% (BldA) [Mass fraction] 98 % Dr. Genevieve Wu MD Work Phone: [facility] 02-14-2025 15:00-0400 Systolic blood pressure 118 mm[Hg] Dr. Genevieve Wu MD Work Phone: [facility] 02-14-2025 09:36-0400 Body height 165.[address] Genevieve Wu MD Work Phone: [facility] 02-14-2025 09:36-0400 Body mass index (BMI) [Ratio] 21.3 kg/m2 Dr. Genevieve Wu MD Work Phone: [facility] 02-14-2025 09:36-0400 Body weight 58.[address] Genevieve Wu MD Work Phone: [facility] 12-07-2024 05:45-0400 Body mass index (BMI) [Ratio] 19.8 kg/m2 Dr. Genevieve Wu MD Work Phone: [facility] 12-07-2024 05:45-0400 Body temperature 96.4 [degF] Dr. Genevieve Wu MD Work Phone: [facility] 12-07-2024 05:45-0400 Body weight 53.[address] Genevieve Wu MD Work Phone: [facility] 12-07-2024 05:45-0400 Diastolic blood pressure 58 mm[Hg] Dr. Genevieve Wu MD Work Phone: [facility] 12-07-2024 05:45-0400 Heart rate 49 /min Dr. Genevieve Wu MD Work Phone: [facility] 12-07-2024 05:45-0400 Respiratory rate 16 /min Dr. Genevieve Wu MD Work Phone: [facility] 12-07-2024 05:45-0400 SaO2% (BldA) [Mass fraction] 95 % Dr. Genevieve Wu MD Work Phone: [facility] 12-07-2024 05:45-0400 Systolic blood pressure 93 mm[Hg] Dr. Genevieve Wu MD Work Phone: [facility] 11-29-2024 10:09-0400 Body height 165.[address] Genevieve Wu MD Work Phone: [facility] 11-29-2024 10:09-0400 Body mass index (BMI) [Ratio] 19.6 kg/m2 Dr. Genevieve Wu MD Work Phone: [facility] 11-29-2024 10:09-0400 Body temperature 94.6 [degF] Dr. Genevieve Wu MD Work Phone: [facility] 11-29-2024 10:09-0400 Body weight 53.[address] Genevieve Wu MD Work Phone: [facility] 11-29-2024 10:09-0400 Diastolic blood pressure 64 mm[Hg] Dr. Genevieve Wu MD Work Phone: [facility] 11-29-2024 10:09-0400 Heart rate 55 /min Dr. Genevieve Wu MD Work Phone: [facility] 11-29-2024 10:09-0400 Respiratory rate 16 /min Dr. Genevieve Wu MD Work Phone: [facility] 11-29-2024 10:09-0400 SaO2% (BldA) [Mass fraction] 92 % Dr. Genevieve Wu MD Work Phone: [facility] 11-29-2024 10:09-0400 Systolic blood pressure 125 mm[Hg] Dr. Genevieve Wu MD Work Phone: [facility] 10-05-2024 08:22-0400 Body mass index (BMI) [Ratio] 19.6 kg/m2 Dr. Nicci Lemus MD Work Phone: [facility] 10-05-2024 08:22-0400 Body weight 53.[address] Nicci Lemus MD Work Phone: [facility] 10-05-2024 08:22-0400 Diastolic blood pressure 65 mm[Hg] Dr. Nicci Lemus MD Work Phone: [facility] 10-05-2024 08:22-0400 Heart rate 75 /min Dr. Nicci Lemus MD Work Phone: [facility] 10-05-2024 08:22-0400 Respiratory rate 18 /min Dr. Nicci Lemus MD Work Phone: [facility] 10-05-2024 08:22-0400 Systolic blood pressure 111 mm[Hg] Dr. Nicci Lemus MD Work Phone: [facility] 09-08-2024 08:39-0400 Body mass index (BMI) [Ratio] 19.4 kg/m2 Dr. Nicci Lemus MD Work Phone: [facility] 09-08-2024 08:39-0400 Body temperature 97.5 [degF] Dr. Nicci Lemus MD Work Phone: [facility] 09-08-2024 08:39-0400 Body weight 53.[address] Nicci Lemus MD Work Phone: [facility] 09-08-2024 08:39-0400 Diastolic blood pressure 77 mm[Hg] Dr. Nicci Lemus MD Work Phone: [facility] 09-08-2024 08:39-0400 Heart rate 72 /min Dr. Nicci Lemus MD Work Phone: [facility] 09-08-2024 08:39-0400 Respiratory rate 18 /min Dr. Nicci Lemus MD Work Phone: [facility] 09-08-2024 08:39-0400 SaO2% (BldA) [Mass fraction] 99 % Dr. Nicci Lemus MD Work Phone: [facility] 09-08-2024 08:39-0400 Systolic blood pressure 121 mm[Hg] Dr. Nicci Lemus MD Work Phone: [facility] 07-19-2024 09:58-0500 Body height 165.[address] Nicci Lemus MD Work Phone: [facility] 07-19-2024 09:58-0500 Body mass index (BMI) [Ratio] 18.3 kg/m2 Dr. Nicci Lemus MD Work Phone: [facility] 07-19-2024 09:58-0500 Body temperature 98.6 [degF] Dr. Nicci Lemus MD Work Phone: [facility] 07-19-2024 09:58-0500 Body weight 49.[address] Nicci Lemus MD Work Phone: [facility] 07-19-2024 09:58-0500 Diastolic blood pressure 74 mm[Hg] Dr. Nicci Lemus MD Work Phone: [facility] 07-19-2024 09:58-0500 Heart rate 89 /min Dr. Nicci Lemus MD Work Phone: [facility] 07-19-2024 09:58-0500 Respiratory rate 15 /min Dr. Nicci Lemus MD Work Phone: [facility] 07-19-2024 09:58-0500 SaO2% (BldA) [Mass fraction] 96 % Dr. Nicci Lemus MD Work Phone: [facility] 07-19-2024 09:58-0500 Systolic blood pressure 108 mm[Hg] Dr. Nicci Lemus MD Work Phone: [facility] 07-21-2023 08:45-0500 Body temperature 98 [degF] Dr. Nicholas Cohen Work Phone: [facility] 07-21-2023 08:45-0500 Body weight 48.[address] Nicholas Cohen Work Phone: [facility] 07-21-2023 08:45-0500 Diastolic blood pressure 82 mm[Hg] Dr. Nicholas Cohen Work Phone: [facility] 07-21-2023 08:45-0500 Heart rate 70 /min Dr. Nicholas Cohen Work Phone: [facility] 07-21-2023 08:45-0500 Respiratory rate 15 /min Dr. Nicholas Cohen Work Phone: [facility] 07-21-2023 08:45-0500 SaO2% (BldA) [Mass fraction] 98 % Dr. Nicholas Cohen Work Phone: [facility] 07-21-2023 08:45-0500 Systolic blood pressure 120 mm[Hg] Dr. Nicholas Cohen Work Phone: [facility] 05-14-2023 15:37-0500 Body height 156.21 cm [facility] 05-14-2023 15:37-0500 Body mass index (BMI) [Ratio] 19.61 kg/m2 Jaida [facility]. 05-14-2023 15:37-0500 Body surface area Derived from formula 1.45 m2 Jaida Sanchez [facility]. 05-14-2023 15:37-0500 Body weight 47.85 kg Jaida Sanchez RN [facility]. 05-14-2023 15:37-0500 Diastolic blood pressure 68 mm[Hg] Jaida Sanchez RN [facility].; [employer] [facility]. Comment on above: Patient Position: Sitting; Cuff Location : Left Arm; Cuff Size: Standard 05-14-2023 15:37-0500 Heart rate 53 /min Jaida Sanchez RN [facility].; [facility] Comment on above: Pattern: Regular 05-14-2023 15:37-0500 Systolic blood pressure 117 mm[Hg] Jaida Sanchez RN [facility]; [facility] Comment on above: Patient Position: Sitting; Cuff Location : Left Arm; Cuff Size: Standard 04-23-2023 11:48-0500 Body temperature 97.3 [degF] Dr. Lalo Palm Work Phone: [facility] 04-23-2023 11:48-0500 Diastolic blood pressure 68 mm[Hg] Dr. Lalo Palm Work Phone: [facility] 04-23-2023 11:48-0500 Heart rate 69 /min Dr. Lalo Palm Work Phone: [facility] 04-23-2023 11:48-0500 Respiratory rate 16 /min Dr. Lalo Palm Work Phone: [facility] 04-23-2023 11:48-0500 SaO2% (BldA) [Mass fraction] 97 % Dr. Lalo Palm Work Phone: [facility] 04-23-2023 11:48-0500 Systolic blood pressure 124 mm[Hg] Dr. Lalo Palm Work Phone: [facility] 04-23-2023 05:13-0500 Body mass index (BMI) [Ratio] 18.1 kg/m2 Dr. Lalo Palm Work Phone: [facility] 04-23-2023 05:13-0500 Body weight 49.[address] Lalo Palm Work Phone: [facility] 04-20-2023 14:09-0500 Body height [address] Lalo Palm Work Phone: [facility] 04-05-2023 11:42-0400 Body mass index (BMI) [Ratio] 17.8 kg/m2 Dr. Lalo Palm Work Phone: [facility] 04-05-2023 11:42-0400 Body temperature 97.8 [degF] Dr. Lalo Palm Work Phone: [facility] 04-05-2023 11:42-0400 Body weight 47.[address] Lalo Palm Work Phone: [facility] 04-05-2023 11:42-0400 Diastolic blood pressure 64 mm[Hg] Dr. Lalo Palm Work Phone: [facility] 04-05-2023 11:42-0400 Heart rate 50 /min Dr. Lalo Palm Work Phone: [facility] 04-05-2023 11:42-0400 Respiratory rate 14 /min Dr. Lalo Palm Work Phone: [facility] 04-05-2023 11:42-0400 SaO2% (BldA) [Mass fraction] 91 % Dr. Lalo Palm Work Phone: [facility] 04-05-2023 11:42-0400 Systolic blood pressure 106 mm[Hg] Dr. Lalo Palm Work Phone: [facility] 03-17-2023 08:45-0400 Body mass index (BMI) [Ratio] 18.3 kg/m2 Dr. Lalo Palm Work Phone: [facility] 03-17-2023 08:45-0400 Body temperature 98.8 [degF] Dr. Lalo Palm Work Phone: [facility] 03-17-2023 08:45-0400 Body weight 48.[address] Lalo Palm Work Phone: [facility] 03-17-2023 08:45-0400 Diastolic blood pressure 70 mm[Hg] Dr. Lalo Palm Work Phone: [facility] 03-17-2023 08:45-0400 Heart rate 71 /min Dr. Lalo Palm Work Phone: [facility] 03-17-2023 08:45-0400 Respiratory rate 16 /min Dr. Lalo Palm Work Phone: [facility] 03-17-2023 08:45-0400 SaO2% (BldA) [Mass fraction] 95 % Dr. Lalo Palm Work Phone: [facility] 03-17-2023 08:45-0400 Systolic blood pressure 128 mm[Hg] Dr. Lalo Palm Work Phone: [facility] 11-13-2022 10:17-0400 Body height 156.21 cm Sisi Thurman RN [facility] 11-13-2022 10:17-0400 Body mass index (BMI) [Ratio] 21.19 kg/m2 Sisi Thurman RN [facility] 11-13-2022 10:17-0400 Body surface area Derived from formula 1.5 m2 Sisi Thurman RN [facility], [facility]. 11-13-2022 10:17-0400 Body weight 51.71 kg Sisi Thurman RN [facility], [facility] 11-13-2022 10:17-0400 Diastolic blood pressure 78 mm[Hg] Sisi Thurman RN [facility]. Comment on above: Patient Position: Sitting; Cuff Location : Left Arm; Cuff Size: Standard 11-13-2022 10:17-0400 Heart rate 57 /min Sisi Thurman RN [facility]. Comment on above: Pattern: Regular 11-13-2022 10:17-0400 Systolic blood pressure 127 mm[Hg] Sisi Thurman RN [facility], [employer]. Comment on above: Patient Position: Sitting; Cuff Location : Left Arm; Cuff Size: Standard 06-30-2022 09:15-0500 Body height 156.21 cm DUNCAN DE Work Phone: [employer] [facility] [employer] [facility]. 06-30-2022 09:15-0500 Body mass index (BMI) [Ratio] 20.82 kg/m2 DUNCAN BERNSTEINER WINDOW MACHINE OPERATOR-C Work Phone: [facility], [facility].; [facility]. 06-30-2022 09:15-0500 Body surface area Derived from formula 1.49 m2 DUNCAN CARMENTTER WINDOW MACHINE OPERATOR-C Work Phone: [facility], [facility].; [facility]. 06-30-2022 09:15-0500 Body weight 50.8 kg DUNCAN PLATTTETTER WINDOW MACHINE OPERATOR-C Work Phone: [facility], [facility]. 06-30-2022 09:15-0500 Diastolic blood pressure 68 mm[Hg] DUNCAN PLATTTETTER WINDOW MACHINE OPERATOR-C Work Phone: [facility] [employer] [facility], [facility].; [employer] [facility]. Comment on above: Patient Position: Sitting; Cuff Location : Left Arm; Cuff Size: Standard 06-30-2022 09:15-0500 Heart rate 59 /min DUNCAN BERNSTEINER WINDOW MACHINE OPERATOR-C Work Phone: [facility] [employer] [facility] Ill[facility], Inc.; [facility] phorus [facility] [employer] Comment on above: Pattern: Regular 06-30-2022 09:15-0500 Inhaled oxygen concentration 21 % DUNCAN PLATTEchodioTTER WINDOW MACHINE OPERATOR-C Work Phone: [employer]; [facility] [employer] Comment on above: Room air 06-30-2022 09:15-0500 SaO2% (BldA) [Mass fraction] 92 % DUNCAN PPITETTER WINDOW MACHINE OPERATOR-C Work Phone: [facility] [employer]; [employer] [facility] Ill[facility] [employer], Inc[employer] 06-30-2022 09:15-0500 Systolic blood pressure 114 mm[Hg] DUNCAN ZAVALA WINDOW MACHINE OPERATOR-Sanjana Work Phone: [facility], Inc[employer] Comment on above: Patient Position: Sitting; Cuff Location : Left Arm; Cuff Size: Standard 04-07-2022 11:05-0400 Body height 156.21 cm [facility]. 04-07-2022 11:05-0400 Body mass index (BMI) [Ratio] 23.42 kg/m2 [facility]. 04-07-2022 11:05-0400 Body surface area Derived from formula 1.56 m2 [facility]. 04-07-2022 11:05-0400 Body weight 57.15 kg [facility]. 04-07-2022 11:05-0400 Diastolic blood pressure 70 mm[Hg] [facility]. Comment on above: Patient Position: Sitting; Cuff Location : Left Arm; Cuff Size: Standard 04-07-2022 11:05-0400 Heart rate 51 /min [facility]. Comment on above: Pattern: Regular 04-07-2022 11:05-0400 Inhaled oxygen concentration 21 % [facility] [facility].; [facility]. Comment on above: Room air 04-07-2022 11:05-0400 SaO2% (BldA) [Mass fraction] 98 % [facility]. 04-07-2022 11:05-0400 Systolic blood pressure 159 mm[Hg] IVÁN MAGALLON [facility] HANNAH QUIROZCHI [facility]. Comment on above: Patient Position: Sitting; Cuff Location : Left Arm; Cuff Size: Standard 02-15-2022 [id number] Diastolic blood pressure 68 mm[Hg] Dr. Lalo Palm Work Phone: [facility] Work Phone: 02-15-2022 [id number] Systolic blood pressure 124 mm[Hg] Dr. Lalo Palm Work Phone: [facility] Work Phone: 02-15-2022 14:11-0400 Heart rate 59 /min Dr. Lalo Palm Work Phone: [facility] Work Phone: 02-15-2022 14:11-0400 Respiratory rate 14 /min Dr. Lalo Palm Work Phone: [facility] Work Phone: 02-15-2022 14:11-0400 SaO2% (BldA) [Mass fraction] 96 % Dr. Lalo Palm Work Phone: [facility] Work Phone: 02-15-2022 12:17-0400 Body height 162.[address] Lalo Palm Work Phone: [facility] Work Phone: 02-15-2022 12:17-0400 Body mass index (BMI) [Ratio] 21.9 kg/m2 Dr. Lalo Palm Work Phone: [facility] Work Phone: 02-15-2022 12:17-0400 Body temperature 96.9 [degF] Dr. Lalo Palm Work Phone: [facility] Work Phone: 02-15-2022 12:17-0400 Body weight 58.[address] Lalo Palm Work Phone: [facility] Work Phone: 02-11-2022 10:59-0400 Body mass index (BMI) [Ratio] 23.1 kg/m2 Dr. Lalo Palm Work Phone: [facility] Work Phone: 02-11-2022 10:59-0400 Body temperature 98.2 [degF] Dr. Lalo Palm Work Phone: [facility] Work Phone: 02-11-2022 10:59-0400 Body weight 59.[address] Lalo Palm Work Phone: [facility] Work Phone: 02-11-2022 10:59-0400 Diastolic blood pressure 80 mm[Hg] Dr. Lalo Palm Work Phone: [facility] Work Phone: 02-11-2022 10:59-0400 Heart rate 57 /min Dr. Lalo Palm Work Phone: [facility] Work Phone: 02-11-2022 10:59-0400 Respiratory rate 16 /min Dr. Lalo Palm Work Phone: [facility] Work Phone: 02-11-2022 10:59-0400 SaO2% (BldA) [Mass fraction] 97 % Dr. Lalo Palm Work Phone: [facility] Work Phone: 02-11-2022 10:59-0400 Systolic blood pressure 130 mm[Hg] Dr. Lalo Palm Work Phone: [facility] Work Phone: 12-28-2021 10:24-0400 Body temperature 98 [degF] Dr. Lalo Palm Work Phone: [facility] Work Phone: 12-28-2021 10:24-0400 Diastolic blood pressure 60 mm[Hg] Dr. Lalo Palm Work Phone: [facility] Work Phone: 12-28-2021 10:24-0400 Heart rate 67 /min Dr. Lalo Palm Work Phone: [facility] Work Phone: 12-28-2021 10:24-0400 Respiratory rate 16 /min Dr. Lalo Palm Work Phone: [facility] Work Phone: 12-28-2021 10:24-0400 SaO2% (BldA) [Mass fraction] 95 % Dr. Lalo Palm Work Phone: [facility] Work Phone: 12-28-2021 10:24-0400 Systolic blood pressure 114 mm[Hg] Dr. Lalo Palm Work Phone: [facility] Work Phone: 12-26-2021 20:32-0400 Diastolic blood pressure 69 mm[Hg] Dr. Lalo Palm Work Phone: [facility] Work Phone: 12-26-2021 20:32-0400 Heart rate 79 /min Dr. Lalo Palm Work Phone: [facility] Work Phone: 12-26-2021 20:32-0400 Systolic blood pressure 126 mm[Hg] Dr. Lalo Palm Work Phone: [facility] Work Phone: 12-26-2021 15:59-0400 Body temperature 97.4 [degF] Dr. Lalo Palm Work Phone: [facility] Work Phone: 12-26-2021 15:59-0400 Respiratory rate 18 /min Dr. Lalo Palm Work Phone: [facility] Work Phone: 12-26-2021 15:59-0400 SaO2% (BldA) [Mass fraction] 98 % Dr. Lalo Palm Work Phone: [facility] Work Phone: 12-25-2021 16:45-0400 Body height [address] Lalo Palm Work Phone: [facility] Work Phone: 12-25-2021 16:45-0400 Body weight 58.[address] Lalo Palm Work Phone: [facility] Work Phone: 12-13-2021 16:09-0400 Body mass index (BMI) [Ratio] 23.3 kg/m2 Dr. Lalo Palm Work Phone: [facility] Work Phone: 12-13-2021 15:17-0400 Body temperature 97.9 [degF] Dr. Lalo Palm Work Phone: [facility] Work Phone: 12-13-2021 15:17-0400 Diastolic blood pressure 74 mm[Hg] Dr. Lalo Palm Work Phone: [facility] Work Phone: 12-13-2021 15:17-0400 Heart rate 68 /min Dr. Lalo Palm Work Phone: [facility] Work Phone: 12-13-2021 15:17-0400 Respiratory rate 18 /min Dr. Lalo Palm Work Phone: [facility] Work Phone: 12-13-2021 15:17-0400 SaO2% (BldA) [Mass fraction] 98 % Dr. Lalo Palm Work Phone: [facility] Work Phone: 12-13-2021 15:17-0400 Systolic blood pressure 142 mm[Hg] Dr. Lalo Palm Work Phone: [facility] Work Phone: 12-13-2021 06:00-0400 Body weight 63.[address] Lalo Palm Work Phone: [facility] Work Phone: 12-11-2021 14:03-0400 Body height [address] Lalo Palm Work Phone: [facility] Work Phone: 12-11-2021 01:45-0400 Body mass index (BMI) [Ratio] 16.7 kg/m2 Dr. Lalo Palm Work Phone: [facility] Work Phone: 12-11-2021 01:03-0400 Body temperature 98.6 [degF] Dr. Lalo Palm Work Phone: [facility] Work Phone: 12-11-2021 01:03-0400 Diastolic blood pressure 69 mm[Hg] Dr. Lalo Palm Work Phone: [facility] Work Phone: 12-11-2021 01:03-0400 Heart rate 86 /min Dr. Lalo Palm Work Phone: [facility] Work Phone: 12-11-2021 01:03-0400 Respiratory rate 15 /min Dr. Lalo Palm Work Phone: [facility] Work Phone: 12-11-2021 01:03-0400 SaO2% (BldA) [Mass fraction] 94 % Dr. Lalo Palm Work Phone: [facility] Work Phone: 12-11-2021 01:03-0400 Systolic blood pressure 120 mm[Hg] Dr. Lalo Palm Work Phone: [facility] Work Phone: 12-10-2021 22:22-0400 Inhaled oxygen flow rate 3 L/min Dr. Lalo Palm Work Phone: [facility] Work Phone: 12-10-2021 20:16-0400 Body height 165.[address] Lalo Palm Work Phone: [facility] Work Phone: 12-10-2021 20:16-0400 Body mass index (BMI) [Ratio] 22.3 kg/m2 Dr. Lalo Palm Work Phone: [facility] Work Phone: 12-10-2021 20:16-0400 Body weight 60.[address] Lalo Palm Work Phone: [facility] Work Phone: 09-26-2021 15:46-0400 Body temperature 97.8 [degF] Dr. Lalo Palm Work Phone: [facility] Work Phone: 09-26-2021 15:46-0400 Diastolic blood pressure 80 mm[Hg] Dr. Lalo Palm Work Phone: [facility] Work Phone: 09-26-2021 15:46-0400 Heart rate 91 /min Dr. Lalo Palm Work Phone: [facility] Work Phone: 09-26-2021 15:46-0400 Respiratory rate 16 /min Dr. Lalo Palm Work Phone: [facility] Work Phone: 09-26-2021 15:46-0400 SaO2% (BldA) [Mass fraction] 96 % Dr. Lalo Palm Work Phone: [facility] Work Phone: 09-26-2021 15:46-0400 Systolic blood pressure 128 mm[Hg] Dr. Lalo Palm Work Phone: [facility] Work Phone: Encounters Encounter Date Encounter Type Care Provider Facility Start: 03-21-2025 ambulatory Genevieve Wu Facili ty:[facility] Start: 03-07-2025 End: 03-07-2025 ambulatory Genevieve Blackjuanitadrew Facility:[facility] Start: 02-27-2025 ambulatory Genevieve Wu OLS Fa cility:[facility] Start: 02-27-[facility] Start: 02-21-20[facility] Start: 02-20-2025 End: 02-21-[address] Genevieve Wu MD Work Phone: -[facility] Start: 02-20-2025 End: 02-20-2025 Barbara Castro NP-C -[facility] Work Phone: Start: 02-19-2025 Dr. Felicia Paniagua MD - [facility] Work Phone: Start: 02-18-2025 Dr. Felicia Paniagua MD - [facility] Work Phone: Start: 02-17-2025 Dr. Karon Nunes MD - [facility] Work Phone: Start: 02-16-2025 Dr. Felicia Paniagua MD - [facility] Work Phone: Start: 02-15-2025 Dr. Felicia Paniagua MD - [facility] Work Phone: Start: 02-14-2025 End: 02-14-[address] Genevieve Wu MD Work Phone: -[facility] Start: 02-14-2025 End: 02-14-2025 Barbara Castro NP-C -[facility] Work Phone: Start: 02-14-2025 ambulatory Liudmila Morin Facility:[facility] Start: 02-14-2025 End: 02-19-2025 Evaluation and management of inpatient Dr. Genevieve Wu MD Work Phone: [facility] Start: 02-14-2025 End: 02-19-2025 Dr. Liudmila Morin MD [facility] Work Phone: Start: 01-30-2025 ambulatory Genevieve CUBA Fa cility:[facility] Start: 01-30-2025 [facility] Start: 01-20-2025 End: 01-20-2025 ambulatory MARCOS WHITE [facility] Start: 01-16-2025 ambulatory MARCOS WHITE [facility] Start: 01-02-2025 End: 01-02-[address] Genevieve Wu MD Work Phone: -[facility] Start: 01-02-2025 End: 01-02-2025 [facility] Start: 01-02-2025 [facility] Start: 01-02-2025 End: 01-02-2025 [facility] Start: 01-02-2025 End: 01-02-2025 ambulatory Genevieve CUBA Facility:[facility] Start: 12-09-2024 ambulatory Genevieve Thrasheri ty:[facility] Start: 12-07-2024 End: 12-07-2024 Patient encounter procedure YARN MAN Idalia Stanley -[facility] Work Phone: Start: 12-07-2024 End: 12-07-2024 TARA [facility] Work Phone: Start: 12-07-2024 End: 12-07-2024 ambulatory Dr. Genevieve Wu MD Work Phone: [facility] Work Phone: Start: 11-29-2024 End: 11-29-[address] Vish Cook MD -[facility] Work Phone: Start: 11-29-2024 End: 11-29-2024 Dr. Vish Cook MD -[facility] Work Phone: Start: 11-29-2024 End: 11-29-[address] Genevieve Wu MD Work Phone: [facility] Work Phone: Start: 11-28-2024 End: 11-28-[address] Willian Palm DO -Cat [facility] Work Phone: Start: 11-28-2024 End: 11-28-[address] Genevieve Wu MD Work Phone: [facility] Work Phone: Start: 11-28-2024 End: 11-28-2024 Departed Referred Genevieve Wu MD -[facility] [place] Start: 11-28-2024 Registered Referred Genevieve Wu MD -[facility] [place] Start: 11-28-2024 End: 11-28-2024 Genevieve Wu MD -[facility] [place] Start: 11-28-2024 End: 11-28-2024 ambulatory Willian Palm Facility:[facility] Start: 11-21-2024 End: 11-21-[address] Genevieve Wu MD Work Phone: -[facility] Start: 11-21-2024 End: 11-21-2024 Patient encounter procedure Barbara DELUNA -[facility] Work Phone: Start: 11-21-2024 End: 11-21-2024 Barbara DELUNA -[facility] Work Phone: Start: 11-08-2024 Non-patient / Non-visit Dr. Sharon Crouch MD -[facility] Start: 11-08-2024 End: 11-08-[address] Nicci Lemus MD Work Phone: [facility] Work Phone: Start: 11-08-2024 End: 11-08-[address] Yunior Desai MD -[facility] Work Phone: Start: 11-08-2024 End: 11-08-2024 Dr. Sharon Crouch MD -[facility] Start: 11-08-2024 End: 11-08-2024 ambulatory Yunior Desai Facility:[facility] Start: 10-31-2024 End: 10-31-2024 Departed Referred Genevieve Wu MD [facility] [place] Start: 10-31-2024 End: 10-31-2024 Genevieve Wu MD [facility] [place] Start: 10-31-2024 End: 10-31-2024 ambulatory Genevieve CUBA Facility:[facility] Start: 10-27-2024 End: 10-27-[address] Genevieve Wu MD Work Phone: -[facility] Start: 10-27-2024 End: 10-27-2024 Patient encounter procedure Barbara DELUNA -[facility] Work Phone: Start: 10-27-2024 End: 10-27-2024 Barbara DELUNA -[facility] Work Phone: Start: 10-05-2024 End: 10-05-[address] Yunior Desai MD -[facility] Work Phone: Start: 10-05-2024 End: 10-05-2024 ambulatory Yunior Desai Facility:[facility] Start: 10-03-2024 End: 10-03-[address] Nicci Lemus MD Work Phone: [facility] Work Phone: Start: 10-03-2024 End: 10-03-2024 Departed Referred Genevieve Wu MD -[facility] [place] Start: 10-03-2024 End: 10-03-2024 ambulatory Efmihirdion Wu OLS Facility:[facility] Start: 09-08-2024 End: 09-08-[address] Willian Palm DO -[facility] Work Phone: Start: 09-08-2024 End: 09-08-2024 ambulatory Efmihirdion Wu Facility:[facility] Start: 08-29-2024 End: 08-29-2024 Departed Referred Genevieve Wu MD [facility] Start: 08-29-2024 End: 08-29-2024 ambulatory Gerardodion Wu OLS Facility:[facility] Start: 08-11-2024 End: 08-11-2024 ambulatory [facility] Start: 08-03-2024 End: 08-03-[address] Genevieve Wu MD -[facility] Work Phone: Start: 08-03-2024 End: 08-03-2024 ambulatory Gerardodion Guillaumedrew Facility:[facility] Start: 08-01-2024 ambulatory Genevieve Galavizdrew OLS Fa cility:[facility] Start: 08-01-2024 [facility] Start: 07-19-2024 End: 07-19-[address] Vish Cook MD -[facility] Work Phone: Start: 07-19-2024 End: 07-19-2024 ambulatory Nicci Lemus Facility:[facility] Start: 07-12-2024 End: 07-12-2024 ambulatory Efewongsharon Galavize Facility:[facility] Start: 07-12-2024 End: 07-12-[address] Genevieve Wu MD -[facility] Work Phone: Start: 07-04-2024 End: 07-04-2024 ambulatory Barbara Castro Facility:[facility] Start: 07-04-2024 End: 07-04-2024 Patient encounter procedure Barbara Castro YARN MAN-C -[facility] Work Phone: Start: 06-30-2024 ambulatory [facility] Facility:[facility] Start: 06-30-2024 Registered Referred Genevieve Wu MD -[facility] [place] Start: 06-27-2024 End: 06-27-2024 ambulatory Barbara Castro Facility:[facility] Start: 06-23-2024 ambulatory [facility] Facility:[facility] Start: 06-21-2024 End: 06-21-2024 ambulatory Genevieve Wu Facility:[facility] Start: 06-20-2024 End: 06-20-2024 ambulatory Matthew Facility:[facility] Start: 06-17-2024 ambulatory [facility] Facility:[facility] Start: 06-16-2024 End: 06-16-2024 ambulatory Barbara Castro Facility:[facility] Start: 06-11-2024 End: 06-11-2024 ambulatory [facility] Facility:[facility] Start: 06-07-2024 End: 06-14-2024 ambulatory [facility] Facility:[facility] Start: 05-30-2024 End: 05-30-2024 Emergency department patient visit [facility] Facility:[facility] Start: 02-23-2024 End: 02-23-2024 Historical Summary DUNCAN ZAVALA WINDOW MACHINE OPERATOR-C Work Phone: [facility] Start: 02-05-2024 End: 02-05-2024 ambulatory MARCOS WHITE [facility] Start: 08-17-2023 End: 08-17-[address] Nicholas Cohen Work Phone: [facility] Work Phone: Start: 08-17-2023 End: 08-17-[address] Nicholas Cohen Work Phone: [facility] Work Phone: Start: 08-14-2023 End: 08-14-[address] Nicholas Cohen Work Phone: [facility] Work Phone: Start: 08-14-2023 End: 08-14-[address] Nicholas Cohen Work Phone: [facility] Work Phone: Start: 08-10-2023 End: 08-10-[address] [facility] Cohen [facility]: Start: 07-21-2023 End: 07-21-[address] Nicholas Cohen Work Phone: [facility] Work Phone: Start: 05-25-2023 End: 05-25-[address] Lalo Palm Work Phone: [facility] Work Phone: Start: 05-25-2023 End: 05-25-[address] Lalo Palm Work Phone: [facility] Work Phone: Start: 05-25-[address] Kamari Palm [facility] Work [facility]: Start: 05-14-2023 End: 05-14-2023 Office outpatient visit 15 minutes DUNCAN ZAVAAL WINDOW MACHINE OPERATOR-C Work Phone: [facility] Start: 04-23-2023 Non-patient / Non-visit Dr. Lalo Palm Work Phone: [facility] Work Phone: Start: 04-22-2023 Non-patient / Non-visit Dr. Lalo Palm Work Phone: [facility] Work Phone: Start: 04-21-2023 Non-patient / Non-visit Dr. Lalo Palm Work Phone: [facility] Work Phone: Start: 04-20-2023 Non-patient / Non-visit Dr. Lalo Palm Work Phone: [facility] Work Phone: Start: 04-19-2023 Non-patient / Non-visit Dr. Lalo Palm Work Phone: [facility] Work Phone: Start: 04-18-2023 Non-patient / Non-visit Dr. Lalo Palm Work Phone: [facility] Work Phone: Start: 04-17-2023 Non-patient / Non-visit Dr. Lalo Palm Work Phone: [facility] Work Phone: Start: 04-16-2023 End: 04-23-2023 Evaluation and management of inpatient Dr. Lalo Palm Work Phone: [facility] 3 Work Phone: Start: 04-05-2023 End: 04-05-[address] Lalo Palm Work Phone: [facility]-Laboratory, Specimen Work Phone: Start: 04-05-2023 End: 04-05-[address] Lalo Palm Work Phone: [facility] Work Phone: Start: 03-17-2023 End: 03-17-[address] Lalo Palm Work Phone: [facility] Work Phone: Start: 11-17-2022 End: 11-17-2022 Results Review DUNCAN HOFSTETTER WINDOW MACHINE OPERATOR-C Work Phone: [employer] Start: 11-13-2022 End: 11-18-[address] NICCI LEMUS MD Facility:[facility] Start: 11-13-2022 End: 11-13-2022 Patient encounter procedure DUNCAN BERNSTEINER WINDOW MACHINE OPERATOR-C Work Phone: [employer] [place] [employer] [employer] Start: 11-13-2022 End: 11-13-2022 Office outpatient visit 15 minutes DUNCAN BERNSTEINER WINDOW MACHINE OPERATOR-C Work Phone: [employer] [place] [employer] [employer] Start: 08-04-2022 End: 08-04-2022 Historical Summary DUNCAN CARMENTTER WINDOW MACHINE OPERATOR-C Work Phone: [employer] Start: 07-04-2022 End: 07-04-2022 Patient encounter procedure DUNCAN CARMENTTER WINDOW MACHINE OPERATOR-C Work Phone: [employer] [place] [employer] Start: 07-01-2022 End: 07-01-2022 Results Review DUNCAN BERNSTEINER WINDOW MACHINE OPERATOR-C Work Phone: [employer] [place] [employer] Start: 06-30-2022 End: 06-30-2022 Lab Only DUNCAN BERNSTEINER WINDOW MACHINE OPERATOR-C Work Phone: [facility] [employer] Start: 06-30-2022 End: 06-30-2022 Office outpatient visit 25 minutes DUNCAN BERNSTEINER WINDOW MACHINE OPERATOR-C Work Phone: [employer] Start: 04-24-2022 End: 04-24-2022 Phone Encounter DUNCAN ZAVALA WINDOW MACHINE OPERATOR-C Work Phone: [facility] [employer] Start: 04-23-2022 End: 04-23-2022 Medication Refill/Order DUNCAN ZAVALA WINDOW MACHINE OPERATOR-C Work Phone: [facility] Start: 04-07-2022 End: 04-07-2022 Office outpatient new 60 minutes DUNCAN ZAVALA WINDOW MACHINE OPERATOR-C [facility] Start: 02-15-2022 End: 02-15-2022 Emergency department patient visit Dr. Lalo Palm Work Phone: [facility] Start: 02-11-2022 End: 02-11-[address] Lalo Palm Work Phone: [facility] Work Phone: Start: 02-11-2022 End: 02-11-[address] Lalo Palm Work Phone: [facility] Start: 02-11-2022 End: 02-11-[address] Lalo Palm Work Phone: [facility] Neu[facility] Start: 12-24-2021 End: 12-24-[address] Lalo Palm Work Phone: [facility] Start: 12-13-2021 End: 12-28-2021 Evaluation and management of inpatient Dr. Lalo Palm Work Phone: [facility] Start: 12-13-2021 Non-patient / Non-visit Dr. Lalo Palm Work Phone: [facility] Start: 12-12-2021 Non-patient / Non-visit Dr. Lalo Palm Work Phone: [facility] Start: 12-11-2021 End: 12-13-2021 Evaluation and management of inpatient Dr. Lalo Palm Work Phone: [facility] 3 Start: 10-29-2021 Non-patient / Non-visit Dr. Lalo Palm Work Phone: [facility] Start: 09-26-2021 End: 09-26-[address] Lalo Palm Work Phone: [facility] Internal Medicine Start: 07-03-2020 End: 07-03-2020 Subsequent hospital visit by physician Gerson Adamson Work Phone: [facility] Comment on above: Other closed displac ed fracture of distal end of left humerus, initial encounter Procedures Date Procedure Procedure Detail Performing Clinician Start: 03-07-2025 Blood count smear mc rscp w/mnl difrntl wbc count Dr. Genevieve Wu MD Work Phone: Start: 03-07-2025 Mean corpuscular hem oglobin concentration determination Dr. Genevieve Wu MD Work Phone: Start: 03-07-2025 Nucleated red blood cell count procedure Dr. Genevieve Wu MD Work Phone: Start: 03-07-2025 Platelet mean volume determination Dr. Genevieve Wu MD Work Phone: Start: 02-27-2025 Blood count smear mc rscp w/mnl difrntl wbc count Dr. Genevieve Wu MD Work Phone: Start: 02-27-2025 Mean corpuscular hem oglobin concentration determination Dr. Genevieve Wu MD Work Phone: Start: 02-27-2025 Nucleated red blood cell count procedure Dr. Genevieve Wu MD Work Phone: Start: 02-27-2025 Platelet mean volume determination Dr. Genevieve Wu MD Work Phone: Start: 02-27-2025 Total cholesterol:HD L ratio measurement Dr. Genevieve Wu MD Work Phone: Start: 02-27-2025 Vitamin D, 25-hydrox y measurement Dr. Genevieve Wu MD Work Phone: Start: 02-21-2025 Blood count smear mc rscp w/mnl difrntl wbc count Dr. Genevieve Wu MD Work Phone: Start: 02-21-2025 Mean corpuscular hem oglobin concentration determination Dr. Genevieve Wu MD Work Phone: Start: 02-21-2025 Nucleated red blood cell count procedure Dr. Genevieve Wu MD Work Phone: Start: 02-21-2025 Platelet mean volume determination Dr. Genevieve Wu MD Work Phone: Start: 02-19-2025 Blood count smear mc rscp [...] all. Screws and plates placed IVÁN MAGALLON Comment on above: 2017 Shoulder surgery IVÁNJAI GIPSON Comment on above: [address] Lalo Vlilar own Work Phone: Viral antigen assay Dr. Willie Palm Work Phone: Plan of Treatment Date Care Activity Detail Author Start: 02-19-2025 Patient discharge [facility] Start: 02-14-2025 Following clinical pathway protocol [facility] Start: 02-14-2025 Assessment of risk o f venous thromboembolism [facility] Start: 02-14-2025 Elevation of head of bed [facility] Start: 02-14-2025 Inhalation therapy procedure [facility] Start: 02-14-2025 Insertion of cathete r into peripheral vein [facility] Start: 02-14-2025 Patient education [facility] Start: 02-14-2025 Providing care accor ding to standard [facility] Start: 02-14-2025 Provision of activit y privileges [facility] Start: 02-14-2025 Referral for physica l therapy [facility] Start: 02-14-2025 Referral to occupati onal therapist [facility] Start: 02-14-2025 Referral to service [facility] Start: 02-14-2025 [facility] Start: 02-14-2025 Bacteria identified in Sputum by Culture [facility] Start: 02-14-2025 Legionella pneumophi la Ag [Presence] in Urine [facility] Start: 02-14-2025 Streptococcus pneumo niae antigen assay [facility] Start: 02-14-2025 Verification routine [facility] Start: 02-14-2025 Admission procedure [facility] Start: 02-14-2025 Hospital admission, emergency, from emergency room, medical nature [facility] Start: 02-14-2025 [facility] Start: 02-14-2025 Consultation [facility] Start: 02-14-2025 Patient referral to dietitian [facility] Start: 04-23-2023 Patient discharge [facility] Start: 04-18-2023 [facility] Start: 04-16-2023 Application of intermittent pneumatic compression device [facility] Start: 04-16-2023 Aspiration precautions [facility] Start: 04-16-2023 Assessment of risk o f venous thromboembolism [facility] Start: 04-16-2023 Fall prevention [facility] Start: 04-16-2023 Inhalation therapy procedure [facility] Start: 04-16-2023 Insertion of cathete r into peripheral vein [facility] Start: 04-16-2023 Introduction of urin inga catheter [facility] Start: 04-16-2023 Measuring intake and output [facility] Start: 04-16-2023 Providing care accor ding to standard [facility] Start: 04-16-2023 Provision of activit y privileges [facility] Start: 04-16-2023 Referral to occupati onal therapist [facility] Start: 04-16-2023 Referral to service [facility] Start: 04-16-2023 [facility] Start: 04-16-2023 Following clinical pathway protocol [facility] Start: 04-16-2023 Admission procedure [facility] Start: 04-16-2023 Patient referral to dietitian [facility] Start: 11-13-2022 Blood occult peroxid ase actv qual feces 1 deter [facility] Start: 11-13-2022 Blood count complete auto&auto difrntl wbc [facility]. Start: 06-30-2022 Cv strs tst xers&/or rx cont ecg w/si&r CARDIOVASCULAR STRESS [id number] ISCAN- WITH IMAGING - ([id number]) ([id number]) Start: 30-Jun-2022 Intent [facility] Start: 06-30-2022 Ecg routine ecg w/le ast 12 lds w/i&r ELECTROCARDIOGRAM, COMPLETE ([id number]) Start: 30-Jun-2022 [facility] Start: 04-28-2022 Assay of iron [facility]. Start: 04-28-2022 Blood count complete auto&auto difrntl wbc [facility] Start: 04-28-2022 Comprehensive metabo lic panel [facility] Start: 04-07-2022 Adv care pln tlkd & alt dcsn maker docd ADV CARE PLAN DISCUSSED & DOCUMENTED, SURROGATE OR PLAN IN PLACE (1123F) Start: 07-Apr-2022 Intent [facility] Start: 02-11-2022 Thiamine measurement [facility] Work Phone: Start: 02-01-2022 Blood chemistry [facility] Work Phone: Start: 01-25-2022 Blood chemistry [facility] Work Phone: Start: 01-18-2022 Blood chemistry [facility] Work Phone: Start: 01-11-2022 Blood chemistry [facility] Work Phone: Start: 01-04-2022 Blood chemistry [facility] Work Phone: Start: 12-29-2021 Development of care plan [facility] Work Phone: Start: 12-28-2021 Blood chemistry [facility] Work Phone: Start: 12-28-2021 Patient discharge [facility] Work Phone: Start: 12-27-2021 Referral to service [facility] Work Phone: Start: 12-24-2021 [facility] Work Phone: Start: 12-23-2021 End: 12-24-2021 [facility] Work Phone: Start: 12-21-2021 Development of care plan [facility] Work Phone: Start: 12-20-2021 End: 12-20-2021 [facility] Work Phone: Start: 12-19-2021 [facility] Work Phone: Start: 12-18-2021 Blood chemistry [facility] Work Phone: Start: 12-17-2021 Speech therapy management [facility] Work Phone: Start: 12-17-2021 Blood chemistry [facility] Work Phone: Start: 12-17-2021 [facility] Work Phone: Start: 12-16-2021 Speech therapy assessment [facility] Work Phone: Start: 12-16-2021 Blood chemistry [facility] Work Phone: Start: 12-16-2021 [facility] Work Phone: Start: 12-15-2021 Blood chemistry [facility] Work Phone: Start: 12-14-2021 Development of care plan [facility] Work Phone: Start: 12-14-2021 Patient referral to dietitian [facility] Work Phone: Start: 12-14-2021 Developing a treatme nt plan [facility] Work Phone: Start: 12-14-2021 Blood chemistry [facility] Work Phone: Start: 12-13-2021 Verification routine [facility] Work Phone: Start: 12-13-2021 Following clinical pathway protocol [facility] Work Phone: Start: 12-13-2021 Admission procedure [facility] Work Phone: Start: 12-13-2021 Measuring intake and output [facility] Work Phone: Start: 12-13-2021 Patient referral to dietitian [facility] Work Phone: Start: 12-13-2021 Referral to occupati onal therapist [facility] Work Phone: Start: 12-13-2021 Referral to service [facility] Work Phone: Start: 12-13-2021 Vital signs measurements [facility] Work Phone: Start: 12-13-2021 End: 12-14-2021 [facility] Work Phone: Start: 12-13-2021 Patient discharge [facility] Work Phone: Start: 12-11-2021 End: 12-12-2021 [facility] Work Phone: Start: 12-11-2021 End: 12-11-2021 Blood culture [facility] Work Phone: Start: 12-11-2021 Application of intermittent pneumatic compression device [facility] Work Phone: Start: 12-11-2021 Following clinical pathway protocol [facility] Work Phone: Start: 12-11-2021 Aspiration precautions [facility] Work Phone: Start: 12-11-2021 Assessment of risk o f venous thromboembolism [facility] Work Phone: Start: 12-11-2021 Fall prevention [facility] Work Phone: Start: 12-11-2021 Incentive spirometry [facility] Work Phone: Start: 12-11-2021 Inhalation therapy procedure [facility] Work Phone: Start: 12-11-2021 Insertion of cathete r into peripheral vein [facility] Work Phone: Start: 12-11-2021 Introduction of urin inga catheter [facility] Work Phone: Start: 12-11-2021 Measuring intake and output [facility] Work Phone: Start: 12-11-2021 Oxygen therapy [facility] Work Phone: Start: 06-29-2022 Providing care accor ding to standard [facility] Work Phone: Start: 12-11-2021 Provision of activit y privileges [facility] Work Phone: Start: 12-11-2021 Referral to occupati onal therapist [facility] Work Phone: Start: 12-11-2021 Referral to service [facility] Work Phone: Start: 12-11-2021 End: 12-11-2021 [facility] Work Phone: Start: 12-11-2021 Verification routine [facility] Work Phone: Start: 12-11-2021 Admission procedure [facility] Work Phone: Start: 12-11-2021 Patient referral to dietitian [facility] Work Phone: Start: 12-10-2021 [facility] Work Phone: Start: 10-29-2021 Patient referral [facility] Work Phone: Start: 06-27-2020 Annual Wellness Visi t (AWV) Annual Wellness Visit (AWV) [place], [place] Start: 02-14-2020 Influenza vaccination Flu vaccine (# 1) [place], [place] Start: 01-18-1996 Screening for osteoporosis DEXA (modify frequency per FRAX score) [place], [place] Start: 1991 Shingles Vaccine (1 of 2) Buitrago gles Vaccine (1 of 2) [place], [place] Start: 01-18-1960 DTaP/Tdap/Td vaccine (1 - Tdap) DTaP/Tdap/Td vaccine (1 - Tdap) [place], [place] Start: 1941 Hepatitis C screening Hepatitis C sc reen [place], [place] Bacteria identified in Blood by Culture Blood Culture [facility] Work Phone: Blood culture [facility] Work Phone: CT Chest WO [facility] End: 07-03-2020 CT [facility] Comment on above: 1 Occurrences starti ng 07/03/2020 until 07/03/2020 End: 07-03-2020 CT UPPER EXTREMITY LEFT WO CONTRAST CT UPPER EXTREMITY LEFT WO CONTRAST Imaging Routine Once for 1 Occurrences starting 07/03/2020 until 07/03[facility]2020 [facility] Comment on above: Once for 1 Occurrenc es starting 07/03/2020 until 07/03/2020 CT UPPER EXTREMITY L EFT WO CONTRAST CT UPPER EXTREMITY LEFT WO CONTRAST Imaging Routine 07/03/2020 12:46 PM EST [facility] Work Phone: Patient Education [facility] Work Phone: Patient referral [facility] Work Phone: Thiamine measurement [facility] Work Phone: [facility] Immunizations Immunization Date Immunization Notes Care Provider [facility] 05-14-2023 influenza, injectabl e, quadrivalent, preservative free DUNCAN ZuoraAXELTETTER WINDOW MACHINE OPERATOR-C Work Phone: [employer] [facility]. Comment on above: Site: Right ArmVIS G iven: * Influenza (Flu) Vaccine (Inactivated or Recombinant) (01/18/21) 05-14-2023 influenza virus vacc ine, unspecified formulation DUNCAN PLATTTEDEIRDRE WINDOW MACHINE OPERATOR-C Work Phone: [employer] [facility] [facility] [place] [employer] [employer] [facility] Comment on above: Had immunization. 01-02-2021 Covid (Pfizer) Dr. Lalo marquis Work Phone: [facility] 12-12-2020 Covid (Pfizer) Dr. Lalo marquis Work Phone: [facility] Health 06-18-[address] Lalo Palm Work Phone: [facility] 06-18-2018 Dr. Genevieve Wu MD Work Phone: [facility] 01-07-2018 pneumococcal polysaccharide vaccine, [address] Lalo Palm Work Phone: [facility] 01-07-[address] Bhavin Palm Work Phone: [facility] Work Phone: 01-07-2018 pneumococcal vaccine , unspecified formulation Dr. Lalo Palm Work Phone: [facility] 06-04-2001 TD(adult) unspecifie d formulation Dr. Lalo Palm Work Phone: [facility] Payers Date Payer Category Payer Self-pay [id number] 2020 Medicare AETNA MEDICARE A ETNA MEDICARE-ADVANTAGE PPO [id number] 2020-Present [address] [place] [address] Medicare [id number] 2006 Private Health Insurance 101 [id number] 1940 Unknown [id number] 2..840.1.587547.3.579.2.6 27 1941 Unknown [id number] 2..840.1.656345.3.579.2.6 51 1941 Unknown [id number] 2.16.840.1.955421.3.579.2.6 51 1941 Unknown [id number] 2.16.840.1.442114.3.579.2.6 51 1941 Unknown [id number] 2.16.840.1.650133.3.579.2.6 51 Medicare [id number] [facility] PACKAGE PLAN [id number] Unknown [id number] 2.16.840.1.779417.3.579.2.4 62 Unknown [id number] 2.16.840.1.301149.3.579.2.4 62 Unknown [id number] 2.16.840.1.058932.3.579.2.4 62 Unknown [id number] 2.16.840.1.284165.3.579.2.4 62 Unknown [id number] 2.16.840.1.775206.3.579.2.4 62 Unknown [id number] 2.16.840.1.318572.3.579.2.4 62 Unknown [id number] 2.16.840.1.291955.3.579.2.4 62 Unknown [id number] 2.16.840.1.882181.3.579.2.4 62 Unknown [id number] 2.16.840.1.924097.3.579.2.4 62 Unknown [id number] 2.16.840.1.720922.3.579.2.4 62 Unknown [id number] 2.16.840.1.631090.3.579.2.4 62 Unknown [id number] 2.16.840.1.220336.3.579.2.4 62 Unknown [id number] 2.16.840.1.159404.3.579.2.4 62 Unknown [id number] 2.16.840.1.426532.3.579.2.4 62 Unknown [id number] 2.16.840.1.801163.3.579.2.4 62 Unknown [id number] 2.16.840.1.720359.3.579.2.4 62 Unknown [id number] 2.16.840.1.775292.3.579.2.4 62 Unknown [id number] 2.16.840.1.536398.3.579.2.4 62 Unknown [id number] 2.16.840.1.529292.3.579.2.4 62 Unknown [id number] 2.16.840.1.087121.3.579.2.4 62 Unknown [id number] 2.16.840.1.690285.3.579.2.4 62 Unknown [id number] 2.16.840.1.926634.3.579.2.4 62 Unknown [id number] 2.16.840.1.826238.3.579.2.4 62 Unknown [id number] 2.16.840.1.374466.3.579.2.4 62 Unknown [id number] 2.16.840.1.131660.3.579.2.4 62 Unknown [id number] 2.16.840.1.623783.3.579.2.4 62 Unknown [id number] 2.16.840.1.347961.3.579.2.4 62 Unknown [id number] 2.16.840.1.244531.3.579.2.4 62 Unknown [id number] 2.16.840.1.927599.3.579.2.4 62 Unknown [id number] 2.16.840.1.394153.3.579.2.4 62 Unknown [id number] 2.16.840.1.765512.3.579.2.4 62 Unknown [id number] 2.16.840.1.008053.3.579.2.4 62 Unknown [id number] 2.16.840.1.387810.3.579.2.4 62 Unknown [id number] 2.16.840.1.163714.3.579.2.4 62 Unknown [id number] 2.16.840.1.120864.3.579.2.4 62 Unknown [id number] 2.16.840.1.926896.3.579.2.4 62 Unknown [id number] 2.16.840.1.957614.3.579.2.4 62 Unknown [id number] 2.16.840.1.681519.3.579.2.4 62 Unknown [id number] 2.16.840.1.693164.3.579.2.4 62 Unknown [id number] 2.16.840.1.816526.3.579.2.4 62 Unknown [id number] 2.16.840.1.243554.3.579.2.4 62 Unknown [id number] 2.16.840.1.185646.3.579.2.4 62 Unknown [id number] 2.16.840.1.450574.3.579.2.4 62 Unknown [id number] 2.16.840.1.533864.3.579.2.4 62 Unknown [id number] 2.16.840.1.947521.3.579.2.4 62 Unknown [id number] 2.16.840.1.660123.3.579.2.4 62 Unknown [id number] 2.16.840.1.935748.3.579.2.4 62 Unknown [id number] 2.16.840.1.824772.3.579.2.4 62 Unknown [id number] 2.16.840.1.267849.3.579.2.4 62 Unknown [id number] 2.16.840.1.039038.3.579.2.4 62 Social History Date Type Detail Facility Start: 07-03-2020 End: 04-16-2023 Tobacco smoking status NHIS Unknown if ever smoked [facility] Sex Assigned At Not on file [place], [place] Exposure to SARS-CoV -2 (event) Not sure [place], [place] Start: 1940 Sex Assigned At Female [facility] Start: 01-04-2018 None [facility] Start: 01-04-2018 Alone [facility] Start: 01-15-2018 Non-smoker [facility] Alcohol Use: Alcohol Use: ; N o [facility]. [facility] Marital status: Marital status: ; . [facility] Tobacco use: Tobacco use: ; F ormer smoker. [facility]; [facility] Work Phone: Occasional alcohol use [facility]; [facility] Work Phone: Never smoked tobacco [facility]; [facility] Work Phone: Start: 06-07-2024 End: 03-14-2025 Ex-smoker [facility] Medical Equipment Procedure Code Equipment Code [...] 12-30-2017 FDA Start: 12-30-2017 FDA Start: 12-30-2017 FDA Start: 12-30-2017 FDA Start: 12-30-2017 Goals Date Patient Goal Desired Activity /State Functional Status Date Assessment Result Facility 02-19-2025 Functional status Chair [facility] Work Phone: 04-23-2023 Functional status Bathroom Privilege [facility] ter [facility] Work Phone: 12-28-2021 Functional status Ambulates;Up ad gary Delaney ster [facility] Work Phone: 12-26-2021 Functional status Ambulates [facility] Work Phone: 12-13-2021 Functional status Patient Activity Chair [facility] Work Phone: 12-13-2021 Functional status With Assist of 1 [facility] Work Phone: Mental Status Date Assessment Result Facility 02-19-2025 Cognitive function Touch/Shaking [facility] Work Phone: 02-14-2025 Cognitive function Drowsy;Disori ented;Responds to vocal stimuli [facility] Work Phone: 04-23-2023 Cognitive function Appropriate;Cooperativ [facility] Work Phone: 04-22-2023 Cognitive function Arousable To Voice/Nam [facility] Work Phone: 02-15-2022 Cognitive function Level Of Cons ciousness Awake;Alert;Appropriate;Follow s Commands [facility] Work Phone: 12-28-2021 Cognitive function Voice/Name [facility] Work Phone: 12-27-2021 Cognitive function Appropriate;C ooperative;Restle ss;Guarded [facility] Work Phone: 12-26-2021 Cognitive function Voice/Name [facility] Work Phone: 12-24-2021 Cognitive function Calm;Relaxed [facility] Work Phone: 12-13-2021 Cognitive function Patient Orientation Pe rson [facility] Work Phone: 12-13-2021 Cognitive function Voice/Name [facility] Work Phone: 12-12-2021 Cognitive function Fatigued [facility] Work Phone: Clinical Notes 02-15-2022 to 02-19-2025 Note Date & Type Note Facility 02-19-2025 Note [facility] 02-18-2025 Progress note Note Date/Time February 18, 2025 3:08pm [facility] Medical Records Department [address] [place] [address] Progress Note 02/18/25 1500 MR#: [id number] Acct: [id number] Name: SAPNA BULLARD Rep #:[id number] : 1940 85 From: Felicia Paniagua MD PCP: Dr. Genevieve Wu MD Status:A DM IN Location: MS3 OS330-5 Subjective Subjective Patient seen and examined with [...] 67 16 113/71 98 Room Air 02/18/25 10:02/18/25 10:02/18/25 10:02/18/25 10:02/18/25 10:02/18/25 10:20 Oxygen Delivery Method Room Air [...] % (Auto) 61.7, Lymph % (Auto) 21.0, [place] % (Auto) 13.3 H, Eos % (Auto) [...] Std Deviation 52.6 H, RDW Coeff of Itffanie 15.9 H, Plt Count 338, MPV 8.7, Immature Gran % (Auto) 0.700, Neut % (Auto) 71.4 H, Lymph % (Auto) 14.7L, [place] % (Auto) 10.8 H, Eos % (Auto) [...] sitter again. Charges/Coding Visit Charges Inpatient E&M: 15391 Subs Hosp L2 02/18/25 1508 <Electronically signed by Felicia Paniagua MD> Felicia Paniagua MD Cosigner Signature (if applicable): CC: ~ Signed [facility] Work Phone: 1(130) 546-416309-05-2025 Progress note Author Felicia [facility] Note Date/Time February 17, 2025 4:00pm [facility] Medical Records Department [address] [place] [address] Progress Note 02/17/25 1048 MR#: [id number] Acct: [id number] Name: SAPNA BULLARD Rep #:[id number] : 1940 85 From: Felicia Paniagua MD PCP: Dr. Genevieve Wu MD Status:A DM IN Location: MT3 MH705-7 Subjective Subjective Patient seen and examined with [...] facilitate this. Charges/Coding Visit Charges Inpatient E&M: 46787 Subs Hosp L2 02/17/25 1600 <Electronically signed by Felicia Paniagua MD> Felicia Paniagua MD Cosigner Signature (if applicable): CC: ~ Signed [facility] Work Phone: [phone] Progress note Author [facility] Man[facility] Note Date/Time February 17, 2025 6:39am [facility] Medical Records Department [address] [place] [address] Progress Note - Hospitalist 02/17/25 0303 MR#: [id number] Acct: [id number] Name: SAPNA BULLARD Rep #:[id number] : 1940 85 From: Karon Nunes MD PCP: Dr. Genevieve Wu MD Status:A DM IN Location: [place] [address] Hospitalist Note Patient with notable agitation, aggressive behavior, will trial IM haldol x 1. 02/17/25 0304 <Electronically signed by Karon Nunes MD> Cosigner Signature (if applicable): CC: ~ Signed ADDENDUM by Dr. Karon Nunes MD on 02/17/25 at 0639 Addendum Will increase patient risperidone. 02/17/25 0639<Electronically signed by Karon Nunes MD> Cosigner Signature (if applicable): cc: ~* Signed [facility] Work Phone: [phone] Progress note Author Felicia [facility] Note Date/Time February 16, 2025 5:29pm [facility] Medical Records Department [address] [place] [address] Progress Note 02/16/25 1324 MR#: [id number] Acct: [id number] Name: SAPNA BULLARD Rep #:[id number] : 1940 85 From: Felicia Paniagua MD PCP: Dr. Genevieve Wu MD Status:A DM IN Location: [place] [address]-1 Subjective Subjective Patient seen and examined with [...] (Auto) 67.8, Lymph % (Auto) 14.9 L, [place] % (Auto) 14.1 H, Eos % (Auto) [...] DC tomorrow Charges/Coding Visit Charges Inpatient E&M: 34340 Subs Hosp L2 02/16/259 <Electronically signed by Felicia Paniagua MD> Felicia Paniagua MD Cosigner Signature (if applicable): CC: ~ Signed [facility] Work Phone: 1(197) 894-246009-03-2025 Progress note Author Felicia [facility] Note Date/Time February 15, 2025 6:32pm [facility] Medical Records Department [address] [place] [address] Progress Note 02/15/25 1730 MR#: [id number] Acct: [id number] Name: JUAREZSAPNA RAZO Drew Rep #:[id number] : 1940 85 From: Felicia Paniagua MD PCP: Dr. Genevieve Wu MD Status:A DM IN Location: MS3 UJ706-0 Subjective Subjective Patient seen and examined. She was lethargic and not really answering questions. Unable to do review of the systems. [facility] Review of symptoms otherwise negative. She has [...] (Auto) 63.9, Lymph % (Auto) 16.8 L, [place] % (Auto) 16.6 H, Eos % (Auto) [...] prophylaxis: SCDs Charges/Coding Visit Charges Inpatient E&M: 21679 Subs Hosp L2 02/15/25 1832 <Electronically signed by Felicia Paniagua MD> Felicia Paniagua MD Cosigner Signature (if applicable): CC: ~ Signed [facility] Work Phone: 1([phone]) 776-487609-03-2025 Progress note Author Farrah Leone [facility] Note Date/Time February 14, 2025 10:08pm [facility] Medical Records Department [address] [place] [address] Progress Note 02/14/251 MR#: [id number] Acct: [id number] Name: SAPNA BULLARD Rep #:[id number] : 1940 85 From: Farrah Haas PCP: Dr. Genevieve Wu MD Status:A DM IN Location: MS3 BG842-7 Progress Note Notified by nursing that pt [...] x1. 02/14/252207 <Electronically signed by Farrah Leone YARN MAN-C> Farrah PENNINGTONC Cosigner Signature (if applicable): CC: ~ Signed [facility] Work Phone: 1(855) 675-451809-02-2025 History and physical note Author Liudmila Morin [facility] Note Date/Time February 14, 2025 7:35pm [facility] Medical Records Department [address] [place] [address] H&P Exam - Hospitalist 02/14/25 1511 MR#: [id number] Acct: [id number] Name: SAPNA BULLARD Rep #:[id number] : 1940 85 From: Liudmila Morin MD PCP: Dr. Genevieve Wu MD Status:A DM IN Location: MT3 ZK858-3 HPI - General General Date of Admission: 02/14/25 Date of Service: 02/14/25 Chief Complaint: Altered mental status, weakness HPI Narrative SAPNA BULLARD, is a 85-year-old female history of GERD, dementia, essential tremor,restless leg syndrome who presented to [facility] ED 02/14/2025 from [facility] for confusion, weakness, stool and urinary [...] up. Unable to obtain any further history [facility] Medical History (Updated 02/14/25 @ 15:21 [...] Unknown History gram-2.25 kcal/mL oral liquid (Boost [facility]) propranolol 20 mg tablet 20 mg [...] details: PT frequency: 1-2 times per week herrera/christianity: Religion seatbelt use: always ROS ROS Narrative Unable [...] (Auto) 74.1 H, Lymph % (Auto)11.8 L, [place] % (Auto) 12.2 H, Eos % (Auto) [...] Clarity Clear, Urine pH 6.0, Ur Specific [place] 1.015, Urine Protein Negative, Urine Glucose (UA) [...] pneumonia. 2. Suggestion of COPD. Reading Location: [facility] Assessment & Plan Assessment/Plan (1) Community acquired [...] Morin MD Charges/Coding Visit Charges Inpatient E&M: 54905 Init Hosp L2 02/14/25 1522 <Electronically signed [...] MD; Dr. Liudmila Morin MD ~* Signed [facility] Work Phone: 1([phone]) 761-578509-02-2025 Discharge summary Author Arya Gannon [facility] Note Date/Time February 14, 2025 5:46pm [facility] Medical Records Department [address] [place] [address] Emergency Department Summary 02/14/25 MR#: [id number] Acct: [id number] Name: SAPNA BULLARD Rep #:[id number] : 1940 85 From: Arya de guzman DO PCP: Dr. Genevieve Wu MD Status:A DM IN [place] [facility] [place] HPI History of Present Illness Chief Complaint: Weakness Narrative Narrative: Chief complaint and HPI: 85-year-old female with past medical history of dementia, GERD, HTN, essential tremor presents from [facility] for evaluation of confusion, weakness, [...] Alert, grossly intact, sensation intact Psych: Cooperative [facility] Medical History Neuropathy Left bundle branch [...] details: PT frequency: 1-2 times per week herrera/christianity: Religion seatbelt use: always EXAM Physical Exam Const [...] dementia, GERD, HTN, essential tremor presents from [facility] for evaluation of confusion, weakness, [...] 74.1 H Lymph % (Auto) 11.8 L [place] % (Auto) 12.2 H Eos % (Auto) [...] Clarity Clear Urine pH 6.0 Ur Specific [place] 1.015 Urine Protein Negative Urine Glucose (UA) [...] (Auto) Neut % (Auto) Lymph % (Auto) [place] % (Auto) Eos % (Auto) Baso % [...] Color Urine Clarity Urine pH Ur Specific [place] Urine Protein Urine Glucose (UA) Urine Ketones Urine Occult Blood Urine Nitrite Urine Bilirubin Urine Urobilinogen Ur Leukocyte Esterase Urine RBC Urine WBC Ur Squamous Epith Cells Urine Bacteria Urine Mucus Radiography Diagnostic Testing: Clinical Impression(s) from Imaging Studies Chest X-Ray 02/14/25 11:40 IMPRESSION: 1. Lingular atelectasis or pneumonia. 2. Suggestion of COPD. Reading Location: [facility] Discharge Plan Disposition Disposition: [facility] Discharge Date/Time: 02/14/25 15:50 What to do if you have Problems For any increased pain, shortness of breath, bleeding, nausea or vomiting, chestpain, or any unexpected problems, contact your Primary Care Provider. Call [facility] ([phone]) or report to the closest Emergency Room. Call 911 if necessary. 02/14/25 1746 <Electronically signed by Arya Gannon DO> Cosigner Signature (if applicable): CC: Dr. Genevieve Wu MD ~ Signed [facility] Work Phone: 1(565) 813-840609-02-2025 [facility] Evaluation note* Diagnosis Onset Date Resolution Status Admit Date Dementia chronic November 29 10:05am Essential tremor chronic November 10:05am Restless leg syndrome chronic Nov 10:05am Vitamin D deficiency resolved November 29, 2024 10:05am Abnormal chest CT chronic December 072024 9:10am Community acquired pneumonia acute February 14, 2025 3:11pm [facility] Work Phone: 1([phone]) 283-933706-17-2025 Evaluation note* Diagnosis Onset Date Resolution Status Admit Date Dementia chronic November 29 10:05am Essential tremor chronic November 10:05am Restless leg syndrome chronic Madhu e 2024 10:05am Vitamin D deficiency resolved November 29, 2024 10:[address] chest [address] chronic December 072024 9:10am Community acquired pneumonia inactiv e February 14, 2025 3:11pm [facility] Work Phone: 1([phone]) 583-498206-17-2025 Radiology Diagnostic study note [facility] Imaging Services [address] [place] [address] Chest without Contrast MR#: [id number] Acct: [id number] Name: SAPNA BULLARD Rep #: [id number] : 1940 F 84 From: Thaddeus Chaparro MD PCP: Dr. Genevieve Wu MD Status: R EG CLI Study:Chest without Contrast Date of Exam: 11/28/24 Exam# [id number] Ordering Dr: Valdez DO PROCEDURE: CHEST WITHOUT [...] 4. Other findings as noted. Reading Location: [id number] CC: Dr. Willian Palm DO; Dr. Genevieve Wu MD ~ Staff Nurse [facility] [employer] Team: Signed [facility] Work Phone: 1([phone]) 519-388804-23-2025 Evaluation note* Diagnosis Onset Date Resolution Status [...] Abnormal chest CT chronic December 072024 9:10am [facility] Work Phone: 1([phone]) 200-708103-27-2025 Evaluation note* Diagnosis Onset Date Resolution Status Admit Date Abnormal chest CT chronic August 142024 11:20am Left bundle branch block acute October 05, 2024 9:00am Abnormal chest CT chronic September 142024 9:00am Dementia chronic October 05 9:00am Hyperlipemia chronic October 05, 2024 9:00am [facility] Work Phone: [phone] Evaluation note* Diagnosis Onset Date Resolution Status [...] D deficiency resolved November 29, 2024 10:05am [facility] Work Phone: [phone]) 439-879403-27-2025 Evaluation note* Diagnosis Onset Date Resolution Status [...] Abnormal chest CT chronic December 072024 9:10am [facility] Work Phone: [phone] Evaluation note* Diagnosis Onset Date Resolution Status Admit Date Anxiety chronic July 19, 2024 9:51am Dementia chronic July 19, 2024 9:51am Insomnia chronic July 19, 2024 9:51am Restless leg syndrome chronic Jul 9:51am Vitamin D deficiency chronic Febr ua2024 9:51am Essential tremor inactive July 19, 2024 9:51am Abnormal chest CT chronic August 142024 11:20am Left bundle branch block acute October 05, 2024 9:00am Abnormal chest CT chronic September 142024 9:00am Dementia chronic October 05 9:00am Hyperlipemia chronic October 05, 2024 9:00am [facility] Work Phone: [phone] 195-558512-31-2024 [facility]11-08-2023 Progress note Author John Johnston [facility] April 22, 2023 4:40pm Note Date/Time April 22, 2023 4 :41pm [facility] Medical Records Department [address] [place] [address] Progress Note - Hospitalist 04/22/23 1637 MR#: [id number] Acct: [id number] Name: SAPNA BULLARD Rep #:[id number] : 1940 83 From: John Johnston DO PCP: Dr. Nicci Lemus MD Status:ADM I N Location: [place] [address] Reason for Visit Reason for Visit: Diagnoses [...] / 300 450 / 450 Output Total 18990 800 / 800 Balance 1909 -1600 / [...] Plus high-protein 4 times a day with ZoomTilt, she willcontinue on an appetite stimulant #7 chronic dementia-type unknown, probable Alzheimer's dementia-complicates care, medical course, recovery, and prognosis Total clinical time spent by myself addressing patient's medical issues, reviewing all of her data, and collaborating with patient's care team: 35 minutes Charges/Coding Visit Charges Inpatient E&M: 91772 Subs Hosp L2 04/22/23 1640 <Electronically signed by John Johnston DO> Cosigner Signature (if applicable): CC: ~ Signed [facility] Work Phone: 1([phone]) 704-906611-07-2023 Progress note Author [facility] April 21, 2023 5:05pm Note Date/Time April 21, 2023 4 :52pm [facility] Medical Records Department [address] [place] [address] Progress Note - Hospitalist 04/21/23 1649 MR#: [id number] Acct: [id number] Name: SAPNA BULLARD Rep #:[id number] : 1940 83 From: John Johnston DO PCP: Dr. Nicci Lemus MD Status:ADM I N Location: [place] [address] Reason for Visit Reason for Visit: Diagnoses [...] Document 04/17/23 11:22 NITZA (Rec: 04/17/23 11:22 [facility] Desktop) Nutrition Malnutrition Evidence of Malnutrition Exists [...] offered, patient will need placement in a senior care facility for short-term rehab services #3 acute cystitis-again patient will be transition to Keflex starting tomorrow #4 acute debility secondary to multiple medical problems including dementia, pneumonia, and cystitis-PT and OT are seeing patient, she will need short-term placement in a senior care facility #5 essential tremor-patient is on propranolol [...] 35 minutes Charges/Coding Visit Charges Inpatient E&M: 13851 Subs Hosp L2 04/21/23 1705 <Electronically signed by John Johnston DO> Cosigner Signature (if applicable): CC: ~ Signed [facility] Work Phone: 1([phone]) 650-692911-06-2023 Progress note Author John [facility] April 20, 2023 7:08pm Note Date/Time April 20, 2023 7 :08pm [facility] Medical Records Department [address] [place] [address] Progress Note - Hospitalist 04/20/23 1859 MR#: [id number] Acct: [id number] Name: SAPNA BULLARD Rep #:[id number] : 1940 83 From: John Johnston DO PCP: Dr. Nicci Lemus MD Status:ADM I N Location: [place] [address] Reason for Visit Reason for Visit: Diagnoses [...] (Auto) 65.0, Lymph % (Auto) 17.3 L, [place] % (Auto) 16.0 H, Eos % (Auto) [...] offered, patient will need placement in a senior care facility for short-term rehab services #3 acute cystitis-again patient will be transition to Keflex starting tomorrow #4 acute debility secondary to multiple medical problems including dementia, pneumonia, and cystitis-PT and OT are seeing patient, she will need short-term placement in a senior care facility #5 essential tremor-patient is on propranolol Total clinical time spent by myself addressing patient's medical issues, reviewing all of her data, and collaborating with patient's care team: 35 minutes Charges/Coding Visit Charges Inpatient E&M: 34863 Subs Hosp L2 04/20/231907 <Electronically signed by John Johnston DO> Cosigner Signature (if applicable): CC: ~ Signed [facility] Work Phone: 1([phone]) 270-292711-05-2023 Progress note Author Pravin Cruz [facility] April 19, 2023 8:59am Note Date/Time April 19, 2023 8 :59am [facility] Medical Records Department [address] [place] [address] Progress Note - Hospitalist 04/19/23 0857 MR#: [id number] Acct: [id number] Name: SAPNA BULLARD Rep #:[id number] : 1940 83 From: Pravin ty MD PCP: Dr. Nicci Lemus MD Status:ADM I N Location: [place] [address] Subjective Subjective No issues overnight, she is [...] Intake and Output for Last 24 Hours 1104/19/23 04/20/23 04:59 03:59 03:59 Intake Total Output [...] 04/18: Urine culture Bartholomew reported. E. coli 39347?46573 E. coli, ramon sensitivity sensitivity available. Continue [...] DVT: Lovenox Charges/Coding Visit Charges Inpatient E&M: 12036 Subs Hosp L2 04/19/23 0859 <Electronically signed by Pravin Cruz MD> Cosigner Signature (if applicable): CC: ~ Signed [facility] Work Phone: 1(908) 458-952011-04-2023 Progress note Author Darinel Carlos [facility] April 18, 2023 2:11pm Note Date/Time April 18, 2023 1 0:00am [facility] Medical Records Department [address] [place] [address] [place] [address] Progress Note - Hospitalist 04/18/23 0959 MR#: [id number] Acct: [id number] Name: SAPNA BULLARD Rep #:[id number] : 1940 83 From: Darinel Morocho PCP: Dr. Nicci Lemus MD Status:ADM I N Location: [place] [address] Reason for Visit Reason for Visit: Diagnoses [...] The patient is an 83 y/o F [facility] ED on 04/16/23 with history [...] 04/18: Urine culture Bartholomew reported. E. coli [id number] E. coli, ramon sensitivity sensitivity available. Continue [...] Care Planning Charges/Coding Visit Charges Inpatient E&M: 92661 Subs Hosp L2 04/18/23 1411 <Electronically signed by Darinel Carlos MD> Cosigner Signature (if applicable): CC: ~ Signed [facility] Work Phone: 1(842) 334-736311-03-2023 Progress note Author Darinel Carlos [facility] April 17, 2023 3:54pm Note Date/Time April 17, 2023 7 :31am [facility] Medical Records Department [address] [place] [address] Progress Note - Hospitalist 04/17/23727 MR#: [id number] Acct: [id number] Name: SAPNA BULLARD Drew Rep #:[id number] : 1940 83 From: Darinel Morocho PCP: Dr. Nicci Lemus MD Status:ADM I N Location: [place] [address] Reason for Visit Reason for Visit: Diagnoses [...] 80.3 H, Lymph % (Auto) 10.8 L, [place] % (Auto) 8.0, Eos % (Auto) 0.1, [...] Sl. Cloudy, Urine pH 7.0, Ur Specific [place] 1.010, Urine Protein 15 H, Urine Glucose [...] 73.6 H, Lymph % (Auto) 13.6 L, [place] % (Auto) 11.3 H, Eos % (Auto) [...] The patient is an 83 y/o F [facility] ED on 04/16/23 with history [...] 113 Gm Tube) 1 applic TOPICAL 4X/DAY [facility]; Protocol Last Admin: 04/17/23 13:58 Dose: 1 applic Donepezil HCl (Donepezil Hcl 10 Mg Tablet) 10 mg PO QHS [facility] Last Admin: 04/16/23 22:31 Dose: 10 mg Guaifenesin (Guaifenesin 10 Ml Udc (200mg/10ml)) 20 ml PO Q4H PRN PRN PRN Reason: COUGH Hydralazine HCl (Hydralazine 20 Mg/Ml Vial) 10 mg IV Q4H PRN PRN; Protocol PRN Reason: SBP > 160 Sodium Chloride () 250 mls @ 15 mls/hr IV .[id number] PRN PRN Reason: Additional IVPB Infusion Sodium Chloride () 250 mls @ 15 mls/hr IV .[id number] PRN PRN Reason: Saline Flush Ceftriaxone Sodium (Rocephin) 1 gm in 50 mls @ 100 mls/hr IV Q24H [facility] Azithromycin 500 mg/ Dextrose 255 mls @ 250 mls/hr IV Q24H [facility] Melatonin (Melatonin 3 Mg Tablet) 3 mg PO QHS PRN PRN PRN Reason: INSOMNIA Memantine (Memantine Hydrochloride 10 Mg Tablet) 10 mg PO BID [facility] Last Admin: 04/17/23 08:31 Dose: 10 mg Mirtazapine (Mirtazapine 15 Mg Tablet) 7.5 mg PO QHS [facility] Last Admin: 04/16/23 22:30 Dose: 7.5 mg Nutritional Formula (Lactose Free) (Ensure Plus High Protein 120 Ml Liquid) 120ml PO 4X/DAY [facility] Last Admin: 04/17/23 13:58 Dose: 120 ml Ondansetron HCl (Ondansetron 4 Mg/2 Ml Vial) 4 mg IV Q8H PRN PRN PRN Reason: NAUSEA/VOMITING Pramipexole Dihydrochloride (Pramipexole Di-Hcl 0.5 Mg Tablet) 0.5 mg PO QHS [facility] Last Admin: 04/16/23 22:31 Dose: 0.5 mg Prochlorperazine Edisylate (Prochlorperazine 10 Mg/2 Ml Vial) 5 mg IV Q4H PRN PRN PRN Reason: Breakthrough nausea/vomiting Propranolol HCl (Propranolol 40 Mg Tablet) 40 mg PO 0600 [facility] Last Admin: 04/17/23 04:09 Dose: Not Given Propranolol HCl (Propranolol 10 Mg Tablet) 20 mg PO 1200,1700 [facility] Last Admin: 04/17/23 12:48 Dose: 20 mg Senna/Docusate Sodium (Senna/Docusate Sodium 1 Tablet) 2 tablet PO BID PRN PRN PRN Reason: Constipation Sodium Chloride (0.9% Saline Lock 10 Ml Syringe) 10 - 40 ml IV UD PRN PRN Reason: SALINE FLUSH Tramadol HCl (Tramadol 50 Mg Tablet) 50 mg PO Q8H PRN PRN PRN Reason: Pain Score 4-10 Charges/Coding Visit Charges Inpatient E&M: 79571 Subs Hosp L2 04/17/23 7862 <Electronically signed by Darinel Carlos MD> Cosigner Signature (if applicable): CC: ~ Signed [facility] Work Phone: 1(273) 869-351011-03-2023 History and physical note Author Karon Nunes [facility] April 16, 2023 10:33pm Note Date/Time April 16, 2023 7 :37pm [facility] Medical Records Department [address] [place] [address] H&P Exam - Hospitalist 04/16/231935 MR#: [id number] Acct: [id number] Name: SAPNA BULLARD Rep #:[id number] : 1940 83 From: Karon Nunes MD PCP: Dr. Nicci Lemus MD Status:ADM I N [place] [facility] [place] HPI - General General Date of Admission: 04/16/23 Date of Service: 04/16/23 Chief Complaint: Confusion, weakness, debility. HPI Narrative The patient is an 83 y/o F w/ PMHx: Essential tremor, Allergic rhinitis, GERD, Chronic normocytic anemia/Fe deficiency anemia, Anxiety and Depression, Dementiaunclear type with unclear behavioral disturbance history, Former tobacco use whopresents to the [facility] ED on 04/16/23 with history [...] as well as azithromycin and IV Rocephin. [facility] Medical History (Updated 04/16/23 @ 22:30 [...] details: PT frequency: 1-2 times per week herrera/christianity: Religion seatbelt use: always ROS Review of Systems [...] 80.3 H, Lymph % (Auto) 10.8 L, [place] % (Auto) 8.0, Eos % (Auto) 0.1, [...] Sl. Cloudy, Urine pH 7.0, Ur Specific [place] 1.010, Urine Protein 15 H, Urine Glucose [...] history, Former tobacco use whopresents to the [facility] ED on 04/16/23 with history [...] 16 minutes. Charges/Coding Visit Charges Inpatient E&M: 02439 Init Hosp L3 Procedures Hospitalists Procedures: 74476 Advncd Care Plan 30 Min 04/16/232232 <Electronically signed by Karon Nunes MD> Cosigner Signature (if applicable): CC: Dr. Karon Nunes MD; Dr. Nicci Lemus MD~ Signed [facility] Work Phone: 1(862) 361-842611-02-2023 Discharge summary Author Nicholas Cohen [facility] April 16, 2023 9:08pm Note Date/Time April 16, 2023 7 :09pm [facility] Medical Records Department [address] [place] [address] Emergency Department Summary 04/16/23 MR#: [id number] Acct: [id number] Name: SAPNA BULLARD Rep #:[id number] : 1940 83 From: Nicholas Cohen DO PCP: Dr. Nicci Lemus MD Status:ADM I N Location: [place] [address] HPI History of Present Illness Chief Complaint: [...] or short of breath. She complainsof dysuria. [facility] Medical History Acid reflux Acute UTI Anemia [...] details: PT frequency: 1-2 times per week herrera/christianity: Religion seatbelt use: always ROS ROS ED Constitutional [...] 80.3 H Lymph % (Auto) 10.8 L [place] % (Auto) 8.0 Eos % (Auto) 0.1 [...] Sl. Cloudy Urine pH 7.0 Ur Specific [place] 1.010 Urine Protein 15 H Urine Glucose [...] your Primary Care Provider. Call [facility] ([phone]) or report to the closest Emergency Room. Call 911 if necessary. 04/16/232107 <Electronically signed by Nicholas Cohen DO> Cosigner Signature (if applicable): CC: Dr. Nicci Lemus MD ~ Signed [facility] Work Phone: 1(193) 802-375109-03-2022 Hospital Discharge instructions Additional Instructions Recommend repeat basic metabolic panel in 3 to 5 days to assess BUN and creatinine [facility] Work Phone: Consult note Author Tanya Cha [facility] April 23, 2023 1:32pm Note Date/Time April 23, 2023 1 :[address] [place] [address] Medical Records Department [address] [place] [address] Counseling Note - Pharmacy 04/23/23 1332 MR#: [id number] Acct: [id number] Name: SAPNA BLULARD Rep #:[id number] : 1940 83 From: Tanya Cha PCP: Dr. Nicci Lemus MD Status:DIS I N Y Location: [place] [address] Pharmacy [place] Med Reconciliation Pharmacy Service has performed discharge medication reconciliation for this patient upon transfer to [place] The patient's discharge medication list was reviewed [...] Signature (if applicable): Date CC: ~ Signed [facility] Work Phone: Discharge summary Author John Johnston [facility] April 23, 2023 11:48am Note Date/Time April 23, 2023 1 1:38am [facility] Medical Records Department [address] [place] [address] Instructions for Home/Discharge Instructions 04/23/23 1138 MR#: [id number] Acct: [id number] Name: SAPNA BULLARD Drew Rep #:[id number] : 1940 83 From: John Johnston DO [...] Up: Lalo Palm DO [Med Staff - Dolphin Researcher] - Within 1 Month Nicci Lemus MD [Primary Care Provider] - Disposition Disposition (needs filled in before D/C Order can be placed): Assisted Living 04/23/23 1148<Electronically signed by John Johnston DO>John Johnston DO CC: Dr. Karon Nunes MD; Dr. Nicci Lemus MD; Dr. Pravin Cruz MD; Dr. Darinel Carlos MD ~ Signed [facility] Work Phone: Discharge summary [facility] Note Date/Time February 19, 2025 12:27pm [facility] Medical Records Department [address] [place] [address] Instructions for Home/Discharge Instructions 02/19/25 1226 MR#: [id number] Acct: [id number] Name: SAPNA BULLARD Rep #:[id number] : 1940 85 From: Felicia Paniagua MD [...] MD; Dr. Liudmila Morin MD ~ Signed [facility] Work Phone: Evaluation note* Diagnosis Onset Date Resolution Status Cognitive decline acute Essential tremor chronic GERD (gastroesophageal reflux disease) chronic Low back pain chronic Acute hypokalemia acute Acute UTI acute Dehydration acute Encephalopathy acute Fall acute Rhabdomyolysis acute Essential tremor chronic [facility] Work Phone: Evaluation note* Diagnosis Onset Date [...] infection acut e Vitamin D deficiency acute [facility] Work Phone: Evaluation note* Diagnosis Onset Date Resolution Status Essential tremor chronic Acute hypokalemia resolved Dehydration resolved Encephalopathy resolved Allergic rhinitis acute Debility acute Essential tremor acute Insomnia acute Iron deficiency anemia acute Osteoporosis acute Restless leg syndrome acute Vitamin D deficiency acute Encephalopathy resolved Hypokalemia resolved Rhabdomyolysis resolved Urinary tract infection reso lved Dementia chronic Fatigue chronic [facility] Work Phone: Evaluation note* Diagnosis Onset Date Resolution Status Anxiety chronic Vitamin D deficiency chronic Urinary tract infection none active UTI (urinary tract infection) acute [facility] Work Phone: Evaluation note* Diagnosis Onset Date Resolution Status UTI (urinary tract infection) resolved Anxiety chronic Vitamin D deficiency chronic [facility] Work Phone: Evaluation note* Diagnosis Onset Date Resolution Status Anxiety chronic Vitamin D deficiency chronic Urinary tract infection none active UTI (urinary tract infection) resolved [facility] Work Phone: History and physical note Author Liudmila Morin [facility] Note Date/Time February 14, 2025 3:22pm [facility] Medical Records Department [address] [place] [address] H&P Exam - Hospitalist 02/14/25 1511 MR#: [id number] Acct: [id number] Name: SAPNA BULLARD Rep #:[id number] : 1940 85 From: Liudmila Morin MD PCP: Dr. Genevieve Wu MD Status:A DM IN Location: MS3 OT198-3 HPI - General General Date of Admission: 02/14/25 Date of Service: 02/14/25 Chief Complaint: Altered mental status, weakness HPI Narrative SAPNA BULLARD, is a 85-year-old female history of GERD, dementia, essential tremor,restless leg syndrome who presented to [facility] ED 02/14/2025 from [facility] for confusion, weakness, stool and urinary [...] up. Unable to obtain any further history [facility] Medical History (Updated 02/14/25 @ 15:21 [...] Unknown History gram-2.25 kcal/mL oral liquid (Boost [facility]) propranolol 20 mg tablet 20 mg [...] details: PT frequency: 1-2 times per week herrera/christianity: Religion seatbelt use: always ROS ROS Narrative Unable [...] (Auto) 74.1 H, Lymph % (Auto)11.8 L, [place] % (Auto) 12.2 H, Eos % (Auto) [...] Clarity Clear, Urine pH 6.0, Ur Specific [place] 1.015, Urine Protein Negative, Urine Glucose (UA) [...] pneumonia. 2. Suggestion of COPD. Reading Location: [facility] Assessment & Plan Assessment/Plan (1) Community acquired [...] Morin MD Charges/Coding Visit Charges Inpatient E&M: 08569 Init Hosp L2 02/14/25 1522 <Electronically signed by Liudmila Morin MD> Cosigner Signature (if applicable): CC: Dr. Genevieve Wu MD; Dr. Liudmila Morin MD~ Signed [facility] Work Phone: Reason for referral (narrative)No reason for referral information [facility] Work Phone: Reason for Referral Status Reason Specialty Diagnoses / Procedures Referred By Contact Referred To Contact Authorized Radiology Diagnoses Other closed displaced fracture of distal end of left humerus, initial encounter Procedures CT ELBOW LEFT WO CONTRAST Gerson Adamson MD [address] [facility] [address] [place] [address] Assessments Diagnosis Other closed displaced fracture of [...] Date/ Time Name of Medical Power of Sex Worker Or Escort annette bullard December 10, 2021 8:22pm Living Will Yes December 10, 2021 8:22pm Power of Sex Worker Or Escort Yes December 10 8:22pm Advance Directive Response Recorded Date/ Time Name of Medical Power of Sex Worker Or Escort Annette Bullard December 11, 2021 1:38am Living Will Yes December 11, 2021 1:38am Power of Sex Worker Or Escort Yes December 11 1:38am Advance Directive Response Recorded Date/ Time Name of Medical Power of Sex Worker Or Escort Annette Bullard December 11, 2021 1:38am Name of Medical Power of Sex Worker Or Escort Annette Bullard December 13, 2021 4:16pm Living Will Yes December 17, 2021 5 :14pm Power of Sex Worker Or Escort No December 17, 2021 5:14pm Advance Directive Response Recorded Date/ Time Name of Medical Power of Sex Worker Or Escort Annette Bullard December 11, 2021 1:38am Name of Medical Power of Sex Worker Or Escort Annette Bullard December 13, 2021 4:16pm Name of Medical Power of Sex Worker Or Escort son February 15, 2022 1:17pm Living Will Yes February 15 1:17pm Power of Sex Worker Or Escort Yes February 15, 2022 1:17pm Advance Directive Response Recorded Date/ Time Name of Medical Power of Sex Worker Or Escort Annette Bullard April 16, 2023 8:33pm Living Will Yes April 16 8:33pm Power of Sex Worker Or Escort Yes April 16, 2023 8:33pm Advance Directive Response Recorded Date/ Time Living Will Yes April 16 9:33pm Do you have a Healthcare Power of Sex Worker Or Escort? Yes April 16, 2023 9:33pm Advance Directive Response Recorded Date/ Time Do you have a Healthcare Power of Sex Worker Or Escort? Yes February 14, 2025 3:37pm Name of Medical Power of Sex Worker Or Escort thaddeus bullard son February 14, 2025 3:37pm [...] M FU July 19, 2024 9 :51am [facility] July 5:00am J98.4 Other [...] M FU July 19, 2024 9 :51am [facility] July 5:00am J98.4 Other disorders of lung July 162024 5:50pm [facility] August 29, 2024 5:0 0am Lung Nodule September 08, 2024 11: 20am LABWORK October 03, 2024 5:[address] (Self) October 05, 2024 9:0 0am [facility] October 31, 2024 4:0 0am CHEST PAIN November 08, 2024 8:58a m Chief Complaint Admit Date [facility] July 5:00am J98.4 Other disorders of lung July 162024 5:50pm [facility] August 29, 2024 5:0 0am Lung Nodule September 08, 2024 11: 20am LABWORK October 03, 2024 5:[address] (Self) October 05, 2024 9:0 0am [facility] October 31, 2024 4:0 0am [...] CT (Self) October 05, 2024 9:0 0am [facility] October 31, 2024 4:0 0am [...] CT (Self) October 05, 2024 9:0 0am [facility] October 31, 2024 4:0 0am [...] CT (Self) October 05, 2024 9:0 0am [facility] October 31, 2024 4:0 0am [...] NEW CONCERN October 27, 2024 5:30p m [facility] October 31, 2024 4:0 0am [...] NEW CONCERN October 27, 2024 5:30p m [facility] October 31, 2024 4:0 0am [...] NEW CONCERN October 27, 2024 5:30p m [facility] October 31, 2024 4:0 0am [...] AND METABOLIC ENCEPHALOPATHY S eptember 2024 3:00pm Chief Complaint Admit Date New Problem November 21, 2024 5:27p m LABWORK November 28, 2024 5:00 am R93.89 Abnormal findings on diagnostic i maging of November 28, 2024 5:50pm 4 M FU November 29, 2024 10:0 5am 3 M FU December 07, 2024 9:10 am LABWORK January 02, 2025 5:00 am [facility] January 30, 2025 5:00am PNEUMONIA AND METABOLIC ENCEPHALOPATHY S epteer 2024 3:11pm NEW CONCERN February 14, 2025 4:38pm PNEUMONIA AND METABOLIC ENCEPHALOPATHY S epteer 2024 5:30pm PNEUMONIA AND METABOLIC ENCEPHALOPATHY S eptember 2024 1:24pm PNEUMONIA AND METABOLIC ENCEPHALOPATHY S epteer 2024 3:03am PNEUMONIA AND METABOLIC ENCEPHALOPATHY S eptember 2024 3:00pm PNEUMONIA AND METABOLIC ENCEPHALOPATHY S epteer 2024 12:27pm RE-ADMISSION EXAM February 20, 2025 2:44pm LABWORK February 21, 2025 5:00am [facility] February 27 5:00am [facility] March 07 4:05am Additional Source Comments INFORMATION SOURCE (unrecogn ized section and content) DATE CREATED AUTHOR 07/07/2020 [facility] DATE CREATED AUTHOR AUTHOR'S ORGANIZ ATION 12/16/2022 [facility] DATE CREATED AUTHOR AUTHOR'S ORGANIZ ATION 02/03/2025 [facility] DATE CREATED AUTHOR AUTHOR'S ORGANIZ ATION 04/14/2025 [facility] Goals (unrecognized section and content) Goals [...] Status: Inactive Member Role Status Dates Dr. Genveieve Wu MD Primary Care Provider Active Start: [...] Provider, Referr ing Provider Active Elliott Grigsby NP, YARN MAN-C Attending Provider Active Team Status: Active Member [...] MD Primary Care Provider Active Dr. Karon uNnes MD Admit Provider, Other Provider Active Dr. [...] End: July 04, 2024 Barbara Castro NP, YARN MAN-C Attending Provider Active Start: July 04, 2024 [...] 2024 End: November 21, 2024 Barbara Castro NP YARN MAN-C Attending Provider Active Start: November 21, 2024 [...] 2024 End: October 27, 2024 Barbara Castro YARN MAN, YARN MAN-C Attending Provider Active Start: October 27, 2024 [...] 2024 End: October 27, 2024 Barbara Castro YARN MAN, YARN MAN-C Attending Provider Active Start: October 27, 2024 [...] 2024 End: November 21, 2024 Barbara Castro YARN MAN, YARN MAN-C Attending Provider Active Start: November 21, 2024 [...] Provider Active St art: February 18, 2025 Team Status: Active Member Role/Relationship Status Dates Dr. Genevieve Wu MD Primary care physician Activ e Team Status: Inactive Member Role/Relationship Status Dates Dr. Genevieve Wu MD Primary care physician Activ e Start: November 21, 2024 End: November 21, 2024 Barbara Castro NP YARN MAN-C Attending physician Active Start: November 21, 2024 End: November 21, 2024 Team Status: Inactive Member Role/Relationship Status Dates Dr. Genevieve Wu MD Primary care physician Activ e Start: November 28, 2024 End: November 28, 2024 Genevieve CUBA MD Attending physician Active Start: November 28, 2024 End: November 28, 2024 Team Status: Inactive Member Role/Relationship Status Dates Dr. Genevieve Wu MD Primary care physician Activ e Start: November 28, 2024 End: November 28, 2024 Dr. Willian Palm DO Attending physician Active Start: November 28, 2024 End: November 28, 2024 Dr. Willian Palm DO Referring Provider Active S tart: November 28, 2024 End: November 28, 2024 Team Status: Inactive Member Role/Relationship Status Dates Dr. Genevieve Wu MD Primary care physician Activ e Start: November 29, 2024 End: November 29, 2024 Dr. Genevieve Wu MD Referring Provider Active Start: November 29, 2024 End: November 29, 2024 Dr. Vish Cook MD Attending physician Active Start: November 29, 2024 End: November 29, 2024 Team Status: Inactive Member Role/Relationship Status Dates Dr. Genevieve Wu MD Primary care physician Activ e Start: December 07, 2024 End: December 07, 2024 Dr. Genevieve Wu MD Referring Provider Active Start: December 07, 2024 End: December 07, 2024 Idalia Stanley NP-C Attending physician Active Start: December 07, 2024 End: December 07, 2024 Team Status: Inactive Member Role/Relationship Status Dates Dr. Genevieve Wu MD Primary care physician Activ e Start: January 02, 2025 End: January 02, 2025 Genevieve CUBA MD Attending physician Active Start: January 02, 2025 End: January 02, 2025 Team Status: Active Member Role/Relationship Status Dates Dr. Genevieve Wu MD Primary care physician Activ e Start: January 30, 2025 Genevieve CUBA MD Attending physician Active Start: January 30, 2025 Team Status: Inactive Member Role/Relationship Status Dates Dr. Genevieve Wu MD Primary care physician Activ e Start: February 14, 2025 End: February 19, 2025 Dr. Arya Gannon DO Emergency Department Physician Active Start: February 14, 2025 End: February 19, 2025 Dr. Liudmila Morin MD Admitting physician Active Start: February 14, 2025 End: February 19, 2025 Dr. Liudmila Morin MD Nurse Practitioner Active Start: February 14, 2025 End: February 19, 2025 Dr. Felicia Paniagua MD Attending physician Active Start: February 14, 2025 End: February 19, 2025 Team Status: Inactive Member Role/Relationship Status Dates Dr. Genevieve Wu MD Primary care physician Activ e Start: February 14, 2025 End: February 14, 2025 Barbara Castro YARN MAN, YARN MAN-C Attending physician Active Start: February 14, 2025 End: February 14, 2025 Team Status: Active Member Role/Relationship Status Dates Dr. Genevieve Wu MD Primary care physician Activ e Start: February 15, 2025 Dr. Arya Gannon DO Emergency Department Physician Active Start: February 15, 2025 Dr. Liudmila Morin MD Admitting physician Active Start: February 15, 2025 Dr. Liudmila Morin MD Nurse Practitioner Active Start: February 15, 2025 Dr. Felicia Paniagua MD Attending physician Active Start: February 15, 2025 Dr. Felicia Paniagua MD Nurse Practitioner Active Start: February 15, 2025 Team Status: Active Member Role/Relationship Status Dates Dr. Genevieve Wu MD Primary care physician Activ e Start: February 16, 2025 Dr. Arya Gannon DO Emergency Department Physician Active Start: February 16, 2025 Dr. Liudmila Morin MD Admitting physician Active Start: February 16, 2025 Dr. Liudmila Morin MD Nurse Practitioner Active Start: February 16, 2025 Dr. Felicia Paniagua MD Attending physician Active Start: February 16, 2025 Dr. Felicia Paniagua MD Nurse Practitioner Active Start: February 16, 2025 Team Status: Active Member Role/Relationship Status Dates Dr. Genevieve Wu MD Primary care physician Activ e Start: February 17, 2025 Dr. Arya Gannon DO Emergency Department Physician Active Start: February 17, 2025 Dr. Liudmila Morin MD Admitting physician Active Start: February 17, 2025 Dr. Liudmila Morin MD Nurse Practitioner Active Start: February 17, 2025 Dr. Felicia Paniagua MD Attending physician Active Start: February 17, 2025 Dr. Felicia Paniagua MD Nurse Practitioner Active Start: February 17, 2025 Team Status: Active Member Role/Relationship Status Dates Dr. Genevieve Wu MD Primary care physician Activ e Start: February 18, 2025 Dr. Arya Gannon DO Emergency Department Physician Active Start: February 18, 2025 Dr. Liudmila Morin MD Admitting physician Active Start: February 18, 2025 Dr. Liudmila Morin MD Nurse Practitioner Active Start: February 18, 2025 Dr. Felicia Paniagua MD Attending physician Active Start: February 18, 2025 Dr. Felicia Paniagua MD Nurse Practitioner Active Start: February 18, 2025 Team Status: Active Member Role/Relationship Status Dates Dr. Genevieve Wu MD Primary care physician Activ e Start: February 19, 2025 Dr. Arya Gannon DO Emergency Department Physician Active Start: February 19, 2025 Dr. Liudmila Morin MD Admitting physician Active Start: February 19, 2025 Dr. Liudmila Morin MD Nurse Practitioner Active Start: February 19, 2025 Dr. Felicia Paniagua MD Attending physician Active Start: February 19, 2025 Dr. Felicia Paniagua MD Nurse Practitioner Active Start: February 19, 2025 Team Status: Inactive Member Role/Relationship Status Dates Dr. Genevieve Wu MD Primary care physician Activ e Start: February 20, 2025 End: February 20, 2025 Barbara Castro YARN MAN, YARN MAN-C Attending physician Active Start: February 20, 2025 End: February 20, 2025 Team Status: Active Member Role/Relationship Status Dates Dr. Genevieve Wu MD Primary care physician Activ e Start: February 21, 2025 Genevieve CUBA MD Attending physician Active Start: February 21, 2025 Team Status: Active Member Role/Relationship Status Dates Dr. Genevieve Wu MD Primary care physician Activ e Start: February 27, 2025 Genevieve CUBA MD Attending physician Active Start: February 27, 2025 Team Status: Active Member Role/Relationship Status Dates Dr. Genevieve Wu MD Primary care physician Activ e Start: March 07, 2025 Genevieve CUBA MD Attending physician Active Start: March 07, 2025 Genevieve CUBA MD Referring Provider Active Start: March 07, 2025 FOR RECORDS PERTAINING TO PATIENTS WHO [...] BE BASED ON THE PRIMARY CLINICAL RECORDS. [employer] [facility] provides no warranty or guarantee of the accuracy or completeness of information in this document.
[2025-04-24 08:28] LABS: Hematocrit 37.5 % (37-47); Hemoglobin 11.6 g/dL (12.0-15.0); Immature Granulocytes Count 0.040 X10^3/uL (0.0-0.0); Mean Corp Hgb Conc 30.9 g/dL (32-36); Mean Corpuscular Volume 91.5 fL (81-99); Mean Platelet Vol. 8.9 fl (6.2-12.0); NRBC Flagged by Analyzer 0 % (0-5); Platelet Count 416 K/mm3 (150-450); RBC Distribution Width CV 13.5 % (11.6-14.6); RBC Distribution Width SD 45.2 fl (35.1-43.9); Red Blood Count 4.10 M/mm3 (4.2-5.4); White Blood Count 6.8 K/mm3 (4.4-11.0)
[2025-04-24 08:35] LABS: Anion Gap 8 (5-15); BUN 8 mg/dL (4-19); BUN/Creat Ratio 8.4 RATIO (10-20); Calcium,Total 9.6 mg/dL (7.6-11.0); Carbon Dioxide 28.3 mmol/L (21.0-32.0); Chloride 103 mmol/L (98-108); Glucose 87 mg/dL (70-99); Potassium 3.8 mmol/L (3.3-5.1)
== END ==
LOC: OLS.WHLTSB 05:00
PROVIDERS: PCP Internal Medicine; Visit Provider Internal Medicine
DX: I10 Essential (primary) hypertension (principal)
CPT/HCPCS: 36415; 80048; 85025

== ENCOUNTER → 2025-05-22 | Outpatient (REF) | payer MEDICARE, SELFPAY ==
--- OUTSIDE RECORDS SUMMARY | 2025-05-22 04:20 | XMS RPT_ITS | CCD ---
Author Organization [facility] Care Team Providers Care Reptile Keeper Name Role Phone Unavailable Primary Care Provider [...] Provider Dr. Vish Cook Attending Provider Seb VANSTONE MACHINE OPERATOR, MIKIE Gonzalez Attending Provider Dr. Nicholas Cohen Emergency Provider Dr. Nicci Lemus Primary Care Provider Dr. Karon Nunes Admit Provider Dr. Karon Nunes Other Provider Dr. Darinel Carlos Attending Provider Dr. Darinel Carlos Other Provider Dr. Pravin Cruz Attending Provider Dr. Pravin Cruz Other Provider Dr. John Johnston Attending Provider Dr. John Johnston Other Provider HOFSTETTER MANAGER ASSET-C, DUNCAN M Unavailable LESLY SÁNCHEZ, RACHID Justin [...] Dr. Vallejo Referring Provider [phone] Jaden VANSTONE MACHINE OPERATOR-C, Idalia Hilton Attending Provider Jazmin SÁNCHEZ, Dr. Vallejo Primary Care Provider Genevieve Wu MD Attending Provider Unavailkali Castro VANSTONE MACHINE OPERATOR-CBarbara Attending Provider Jazmin SÁNCHEZ, Dr. Vallejo Primary Care Provider Jazmin SÁNCHEZ, Dr. Vallejo Referring Provider [phone] Matthew VANSTONE MACHINE OPERATOR-C, Attending Provider Dr. Willian Palm DO Attending [...] Dr. Sharon Crouch MD Attending Provider [phone] Dr. Willian Palm DO Attending Provider Dr. Willian Palm DO Referring Provider [phone] Jazmin SÁNCHEZ, Dr. Vallejo Referring Provider Joyce SÁNCHEZ, Dr. Wahl Attending Provider Jaden PENNINGTONCIdalia Attending Provider [facility], Dr. Koenig Emergency Provider Mikel SÁNCHEZ, Dr. Nur Admit Provider Mikel SÁNCHEZ, Dr. Nur Attending Provider Mikel SÁNCHEZ, Dr. Nur Other Provider Arcelia SÁNCHEZ, Dr. Felicia Nick Attending Provider Arcelia SÁNCHEZ, Dr. Felicia Nick Other Provider Manju SÁNCHEZ, Dr. Karon Marrero Attending Provider Jazmin SÁNCHEZ, Dr. Vallejo Primary Care Physician Matthew PACHECO-Barbara Allan Attending Physician Jazmin SÁNCHEZ, Genevieve Attending Physician Unavail able [facility] Dr. Willian RINCON Attending Physician Joyce SÁNCHEZ, Dr. Wahl Attending Physician Idalia Aguirre Attending Physician [facility], Dr. Koenig Emergency Departmen t Physician Mikel SÁNCHEZ, Dr. Nur Admitting Physician Mikel SÁNCHEZ, Dr. Nur Nurse Practitioner Arcelia SNÁCHEZ, Dr. Felicia Nick Attending Physician Arcelia SÁNCHEZ, Dr. Felicia Nick Nurse Practitioner Jazmin SÁNCHEZ, Genevieve Referring Provider Unavaila ble Oleghe, Efewongbe Primary Care Unavailable Liudmila Morin Consulting Unavailable Liudmila Morin Admitting Unavailable Felicia Paniagua Attending Unavailable Oleghe, Efewongbe Primary Care Unavailable Felicia Paniagua Attending Unavailable Liudmila Morin Admitting Unavailable Liudmila Morin Consulting Unavailable Koram, Felicia Nick Consulting Unavailable Liudmila Morin Attending Unavailable Oleghe, Efewongbe Primary Care Unavailable Oleghe, Efewongbe Attending Unavailable Oleghe, Efewongbe Referring Unavailable Willian Palm Attending Unavailable Oleghe, Efewongbe Referring Unavailable Oleghe, Efewongbe Primary Care Unavailable Villagran, Achintya Consulting Unavailable Villagran, Achintya Admitting Unavailable Pravin Cruz Attending Unavailable Kornhaus, Nicci Primary Care Unavailable John Johnston Consulting Unavailable Pravin Cruz Consulting Unavailable Villagran, Achesdrasya Attending Unavailable Oleghe OLS, Efewongbe Attending Unavailabl [...] Unavailable Oleghe OLS, Efewongbe Attending Unavailabl e Willian Palm Attending Unavailable Koko Palmk Referring Unavailable Oleghe, Efewongbe Primary Care Unavailable Oleghe OLS, Efewongbe Attending Unavailabl e Oleghe, Efewongbe Primary Care Unavailable Kornhaus, Nicci Primary Care Unavailable Oleghe OLS, Efewongbe Attending Unavailabl Sharon Mcneill Attending Unavailable Oleghe, Efewongbe Primary Care Unavailable Willian Palm Attending Unavailable Koko Palmk Referring Unavailable Oleghe, Efewongbe Primary Care Unavailable Villagran, Achintya Referring Unavailable Kornhaus, Nicci Primary Care Unavailable Chevy Lee Attending Unavailable John Johnston Attending Unavailable Oleghe OLS, Efewongbe Attending Unavailabl e Oleghe, Efewongbe Primary Care Unavailable John Johnston Referring Unavailable Koko Palmk Attending Unavailable Yunior Desai Attending Unavailable Oleghe, Efewongbe Referring Unavailable Oleghe, Efewongbe Primary Care Unavailable Kornhaus, Nicci Referring Unavailable Vish Cook Attending Unavailable Oleghe, Efewongbe Primary Care Unavailable Oleghe, Efewongbe Attending Unavailable Oleghe, Efewongbe Primary Care Unavailable Tickton VANSTONE MACHINE OPERATOR, Attending Unavailable Oleghe, Efewongbe Primary Care Unavailable Tickton VANSTONE MACHINE OPERATOR, Attending Unavailable Oleghe, Efewongbe Primary Care Unavailable Vish Cook Attending Unavailable Oleghe, Efewongbe Primary Care Unavailable Oleghe, Efewongbe Referring Unavailable Idalia Stanley Attending Unavailable Oleghe, Efewongbe Primary Care Unavailable Oleghe, Efewongbe Referring Unavailable Oleghe, Efewongbe Primary Care Unavailable Tickton VANSTONE MACHINE OPERATOR, Attending Unavailable Tickton VANSTONE MACHINE OPERATOR, Attending Unavailable Oleghe, Efewongbe Primary Care Unavailable Oleghe, Efewongbe Primary Care Unavailable Oleghe, Efewongbe Attending Unavailable Tickton VANSTONE MACHINE OPERATOR, Attending Unavailable Oleghe, Efewongbe Primary Care Unavailable Oleghe, Efewongbe Primary Care Unavailable Oleghe, Efewongbe Attending Unavailable Tickton VANSTONE MACHINE OPERATOR, Attending Unavailable Oleghe, Efewongbe Primary Care Unavailable Rj Mcdonald Consulting Unavailable Bernardo Ruiz [...] Ashton Consulting Unavailable Bladimir Treviño Consulting Unavailable Cindyton VANSTONE MACHINE OPERATOR, Attending Unavailable Oleghe, Efewongbe Primary Care Unavailable Oleghe, Efewongbe Primary Care Unavailable Tickton VANSTONE MACHINE OPERATOR, Attending Unavailable Yunior Desai Referring Unavailable Yunior Desai Attending Unavailable Oleghe, Efewongbe Primary Care Unavailable Oleghe, Efewongbe Primary Care Unavailable Oleghe OLS, Efewongbe Attending Unavailabl e Oleghe OLS Efewongbe Attending Unavailabl e Oleghe, Efewongbe Primary Care Unavailable Oleghe OLS, Salliebe Attending Unavailabl e Oleghe, Efewongbe Primary Care Unavailable Nicci Lemus Primary Care Unavailable [place] ROSA ELENA Gerardoongbe Attending Unavailabl e Oleghe OLS, Efewongbe Attending Unavailabl e Oleghe, Efewongbe Primary Care Unavailable Nicci Lemus Primary Care Unavailable JuarezAlysiao Attending Unavailable [place] ROSA ELENA, Efmihirongbe Attending Unavailabl e Oleghe, Efewongbe Primary Care Un[facility] Unavailable [place] Gerardo CUBAongbe Attending UnavailHilaria Medina Consulting Unavailable Hilaria Villagran Admitting Unavailable [facility] Unavailable Pravin Cruz Attending Unavailable John Johnston Unavailable Medications Current Medications Medication Drug Class(es) [...] docusate sodium 50 mg / sylvia osides, long term 8.6 mg oral tablet (20 sources) Start: [...] ( 0.06 %) nasal spray ; 2 [place] up to three times daily as needed prn allergic rhinitis for 30 days Quantity: 15 {Milliliter} Refills: 11 Ordered: 13-Nov-2022 CAMDEN Thurman Start: 07-Apr-2022 End: 13-Nov-2022 Status: Inactive Comments: Medication taken as needed. Start: 05-08-2021 End: 07-10-2022 Start: 05-08-2021 End: 07-10-2022 Ipratropium [place] 42 mcg ( 0.06 %) spray,non-aerosol Discontinued 2 NMA INTRANASAL THREE TIMES A DAY as needed for allergy symptoms 29 06May 08, 2021 1:00am July 10, 2022 12:25pm administer into each nostril Start: 05-08-2021 End: 07-10-2022 take 1 spray(s) nasal route three times daily Ipratropium [place] Discontinued 2 SPRAY INTRANASAL THREE TIMES A [...] %) nasal spray aerosol ; 2 sprays [place] every 12 hours as needed for rhinitis [...] mc g/actuation nasal spray,suspension ; 1 spray [place] daily as needed for allergic rhinitis for [...] 10 m g oral tablet (20 sources) U-iopclw-O-aspartate Receptor Antagonist Start: 02-11-2022 End: 01-20-2024 Start: [...] mouth three times daily Sod Phos Di, [place]-K Phos [place] (B-Dyvu-Zrehjsw) 250 mg tablet Discontinued 2 TABLET PO [...] Xa Inhibitor Start: 01-01-2018 End: 10-14-2018 sennosides, long term 8.6 mg oral tablet (20 sources) Start: [...] 1:00am July 12, 2024 1:25pm Moved to [facility] 10. Comment on above: This prescription ex [...] patient; Translations: [Other specified counseling] Onset: 05-14-2023 Episodic Comment on above: 05/14/23 Discussed [...] 3 Episodic Genitourinary symptoms and ill-defined conditions (17 [...] [Difficulty in walking, not elsewhere classified] Onset: 5 Chronic Other nervous system disorders (20 sources) [...] to further discuss the symptoms with the hiv/aids care nurse.). You should call our office if you [...] Auto (Unsp spec) [#/Vol] 2.20 10*3/uL 0.83-4.51 [facility] Anion gap in Serum or Plasma Ordered By: Genevieve Wu on 03-07-2025 Anion gap [Moles/Vol] 12 mmol/L 5-15 [facility] Automated lymphocyte count a s percentage of total leukocytesOrdered By: Genevieve Wu on 03-07-2025 Lymphocytes/100 WBC Auto (Unsp spec) 28.3 % 19-41 [facility] BUN/creatinine ratioOrdered By: mihirswan riversharon Wu on 03-07-2025 Urea nitrogen/Creatinine [Mass ratio] 13.7 mg/mg 10-20 [facility] Basophil percentageOrdered B y: Genevieve Wu on 03-07-2025 Basophils/100 WBC (Bld) 0.5 % 0-1 [facility] Carbon dioxide, total [Moles /volume] in Central venous bloodOrdered By: Genevieve Wu on 03-07-2025 CO2 [Moles/Vol] 26.6 mmol/L 21.0-32.0 [facility] Chloride assayOrdered By: Abe Wu on 03-07-2025 Chloride [Moles/Vol] 99 mmol/L 98-108 [facility] Eosinophil percentageOrdered By: [facility] on 03-07-2025 Eosinophils/100 WBC (Bld) 2.4 % 0-5 [facility] Erythrocyte distribution wid th ratioOrdered By: Genevieve Wu on 03-07-2025 Erythrocyte distribution width (RBC) [Ratio] 15.2 % High 11.6-14.6 [facility] Erythrocyte distribution wid th standard deviationOrdered By: haseeb Wu on 03-07-2025 Erythrocyte distribution width (RBC) [Ratio] 51.2 fl High 35.1-43.9 [facility] Glomerular filtration rate ( GFR) estimation/1.73 sq m using serum, plasma, or whole bOrdered By: Genevieve Wu on 03-07-2025 GFR/1.73 sq M.predicted among non-blacks MDRD (S/P/Bld) [Vol rate/Area] 59 mL/min/{1.73_m2} Low >60 [facility] Hematocrit Auto (Bld) [Volum e fraction]Ordered By: Genevieve Wu on 03-07-2025 Hematocrit (Bld) [Volume fraction] 39.0 % 37-47 [facility] Hemoglobin measurementOrdere d By: Genevieve Wu on 03-07-2025 Hemoglobin (Bld) [Mass/Vol] 12.1 g/dL 12.0-15.0 [facility] Immature granulocytes/100 WB C Auto (Bld)Ordered By: Genevieve Wu on 03-07-2025 Immature granulocytes/100 WBC (Bld) 0.400 % 0.0-0.9 [facility] MCV (mean corpuscular volume ) determinationOrdered By: Genevieve Wu on 03-07-2025 MCV (RBC) [Entitic vol] 91.8 fL 81-99 [facility] Mean corpuscular hemoglobin (MCH) determinationOrdered By: [facility] on 03-07-2025 MCH (RBC) [Entitic mass] 28.5 pg 27.0-32.0 [facility] Monocyte percentageOrdered B y: Genevieve Wu on 03-07-2025 Monocytes/100 WBC (Bld) 12.0 % High 0-10 [facility] Neutrophil percentageOrdered By: [facility] on 03-07-2025 Neutrophils/100 WBC (Bld) 56.4 % 47-70 [facility] Platelet countOrdered By: Abe Wu on 03-07-2025 Platelets (Bld) [#/Vol] 452 10*3/uL High 150-450 [facility] Potassium measurement (mass/ volume)Ordered By: Genevieve Wu on 03-07-2025 Potassium (Unsp spec) [Mass/Vol] 3.7 mmol/L 3.3-5.1 [facility] RBC Auto (Bld) [#/Vol]Ordere d By: Genevieve Wu on 03-07-2025 RBC (Bld) [#/Vol] 4.25 10*6/uL 4.2-5.4 [facility] Serum creatinine measurement (mass/volume)Ordered By: Abemihirdion Waynejuanitadrew on 03-07-2025 Creatinine [Mass/Vol] 0.95 mg/dL 0.70-1.20 [facility] Serum glucose measurement (m ass/volume)Ordered By: Genevieve Blackjuanitadrew on 03-07-2025 Glucose [Mass/Vol] 82 mg/dL 70-99 [facility] Serum or plasma calcium candice urement (mass/volume)Ordered By: Abehaseeb Blackjuanitadrew on 03-07-2025 Calcium [Mass/Vol] 9.7 mg/dL 7.6-11.0 [facility] Serum or plasma urea nitroge n measurement (mass/volume)Ordered By: Abemihirdion Waynejuanitadrew on 03-07-2025 Urea nitrogen [Mass/Vol] 13 mg/dL 4-19 [facility] Sodium levelOrdered By: Gerardo Wu on 03-07-2025 Sodium [Moles/Vol] 138 mmol/L 133-145 [facility] White blood cell (WBC) count Ordered By: Abemihirkarleysharon Blackjuanitadrew on 03-07-2025 WBC (Bld) [#/Vol] 7.8 10*3/uL 4.4-11.0 [facility] Absolute lymphocyte countOrd ered By: Genevieve Galavizdrew on 02-27-2025 Lymphocytes Auto (Unsp spec) [#/Vol] 1.81 10*3/uL 0.83-4.51 [facility] Anion gap in Serum or Plasma Ordered By: Genevieve Waynejuanitadrew on 02-27-2025 Anion gap [Moles/Vol] 13 mmol/L 5-15 [facility] Automated lymphocyte count a s percentage of total leukocytesOrdered By: Abemihirkarleysharon Blackjuanitadrew on 02-27-2025 Lymphocytes/100 WBC Auto (Unsp spec) 24.8 % 19-41 [facility] BUN/creatinine ratioOrdered By: Genevieve Wu on 02-27-2025 Urea nitrogen/Creatinine [Mass ratio] 12.0 mg/mg 10-20 [facility] Basophil percentageOrdered B y: Genevieve Wu on 02-27-2025 Basophils/100 WBC (Bld) 0.5 % 0-1 [facility] Bilirubin directOrdered By: Genevieve Wu on 02-27-2025 Bilirubin.direct [Mass/Vol] 0.11 mg/dL 0.00-0.30 [facility] Bilirubin, totalOrdered By: Genevieve Wu on 02-27-2025 Bilirubin [Mass/Vol] 0.24 mg/dL 0.00-1.30 [facility] Calculated very low density lipoprotein (VLDL) cholesterol measurementOrdered By: Genevieve Wu on 02-27-2025 Calculated very low density lipoprotein (VLDL) cholesterol measurement 15 mg/dL 5-40 [facility] Carbon dioxide, total [Moles /volume] in Central venous bloodOrdered By: Genevieve Wu on 02-27-2025 CO2 [Moles/Vol] 22.7 mmol/L 21.0-32.0 [facility] Chloride assayOrdered By: Abe Wu on 02-27-2025 Chloride [Moles/Vol] 107 mmol/L 98-108 [facility] Eosinophil percentageOrdered By: Genevieve Wu on 02-27-2025 Eosinophils/100 WBC (Bld) 2.5 % 0-5 [facility] Erythrocyte distribution wid th ratioOrdered By: Genevieve Wu on 02-27-2025 Erythrocyte distribution width (RBC) [Ratio] 15.6 % High 11.6-14.6 [facility] Erythrocyte distribution wid th standard deviationOrdered By: Genevieve Wu on 02-27-2025 Erythrocyte distribution width (RBC) [Ratio] 53.2 fl High 35.1-43.9 [facility] Glomerular filtration rate ( GFR) estimation/1.73 sq m using serum, plasma, or whole bOrdered By: Genevieve Wu on 02-27-2025 GFR/1.73 sq M.predicted among non-blacks MDRD (S/P/Bld) [Vol rate/Area] 58 mL/min/{1.73_m2} Low >60 [facility] Hematocrit Auto (Bld) [Volum e fraction]Ordered By: Genevieve Wu on 02-27-2025 Hematocrit (Bld) [Volume fraction] 33.0 % Low 37-47 [facility] Hemoglobin measurementOrdere d By: Genevieve Wu on 02-27-2025 Hemoglobin (Bld) [Mass/Vol] 10.1 g/dL Low 12.0-15.0 [facility] Immature granulocytes/100 WB C Auto (Bld)Ordered By: Genevieve Wu on 02-27-2025 Immature granulocytes/100 WBC (Bld) 0.700 % 0.0-0.9 [facility] LDL calc ser/plasOrdered By: Genevieve Wu on 02-27-2025 Cholesterol in LDL [Mass/Vol] 103 mg/dL [facility] MCV (mean corpuscular volume ) determinationOrdered By: haseeb Wu on 02-27-2025 MCV (RBC) [Entitic vol] 93.5 fL 81-99 [facility] Mean corpuscular hemoglobin (MCH) determinationOrdered By: haseeb Wu on 02-27-2025 MCH (RBC) [Entitic mass] 28.6 pg 27.0-32.0 [facility] Monocyte percentageOrdered B y: Genevieve Wu on 02-27-2025 Monocytes/100 WBC (Bld) 10.6 % High 0-10 [facility] Neutrophil percentageOrdered By: [facility] Wu on 02-27-2025 Neutrophils/100 WBC (Bld) 60.9 % 47-70 [facility] No Panel InformationOrdered By: Genevieve Wu on 02-27-2025 23 U/L <32 [facility] Platelet countOrdered By: Abe Wu on 02-27-2025 Platelets (Bld) [#/Vol] 364 10*3/uL 150-450 [facility] Potassium measurement (mass/ volume)Ordered By: Genevieve Wu on 02-27-2025 Potassium (Unsp spec) [Mass/Vol] 3.7 mmol/L 3.3-5.1 [facility] RBC Auto (Bld) [#/Vol]Ordere d By: Genevieve Wu on 02-27-2025 RBC (Bld) [#/Vol] 3.53 10*6/uL Low 4.2-5.4 [facility] Serum creatinine measurement (mass/volume)Ordered By: Genevieve Wu on 02-27-2025 Creatinine [Mass/Vol] 0.97 mg/dL 0.70-1.20 [facility] Serum globulin measurementOr dered By: Genevieve Wu on 02-27-2025 Globulin (S) [Mass/Vol] 2.7 g/dL 2.2-4.2 [facility] Serum glucose measurement (m ass/volume)Ordered By: Genevieve Wu on 02-27-2025 Glucose [Mass/Vol] 121 mg/dL High 70-99 [facility] Serum or plasma alanine carpio otransferase (ALT) measurementOrdered By: Genevieve Wu on 02-27-2025 ALT [Catalytic activity/Vol] 13 U/L <35 [facility] Serum or plasma albumin candice urement (mass/volume)Ordered By: Genevieve Wu on 02-27-2025 Albumin [Mass/Vol] 3.3 g/dL Low 3.4-4.8 [facility] Serum or plasma alkaline anthony sphatase measurementOrdered By: Genevieve Wu on 02-27-2025 ALP [Catalytic activity/Vol] 106 U/L High 35-104 [facility] Serum or plasma calcium candice urement (mass/volume)Ordered By: Genevieve Wu on 02-27-2025 Calcium [Mass/Vol] 8.6 mg/dL 7.6-11.0 [facility] Serum or plasma cholesterol in HDL measurement (mass/volume)Ordered By: Genevieve Wu on 02-27-2025 Cholesterol in HDL [Mass/Vol] 38 mg/dL Low >40 [facility] Serum or plasma cholesterol measurement (mass/volume)Ordered By: Genevieve Wu on 02-27-2025 Cholesterol [Mass/Vol] 156 mg/dL <201 [facility] Serum or plasma urea nitroge n measurement (mass/volume)Ordered By: Genevieve Wu on 02-27-2025 Urea nitrogen [Mass/Vol] 12 mg/dL 4- [facility] Sodium levelOrdered By: Gerardo Wu on 02-27-2025 Sodium [Moles/Vol] 142 mmol/L 133-145 [facility] Total proteinOrdered By: Garry Wu on 02-27-2025 Protein [Mass/Vol] 6.0 g/dL 5.9-8.4 [facility] White blood cell (WBC) count Ordered By: Genevieve Wu on 02-27-2025 WBC (Bld) [#/Vol] 7.3 10*3/uL 4.4-11.0 [facility] Basic Metabolic Profile (BMP )on 02-23-2025 BUN Normal 4-19 [facility] Comment on above: Result Comment: Canc elled via OM: Order cancelled - Patient discharged Performed By: #### L 500.2500, L100.0100 ####[facility] [address] [place], [address] BUN/CRE Normal 10-20 [facility] Comment on above: Result Comment: Canc elled via OM: Order cancelled - Patient discharged Performed By: #### L 500.2500, L100.0100 ####[facility] [address] [place], [address] Calcium Normal 7.6-11.0 [facility] Comment on above: Result Comment: Canc elled via OM: Order cancelled - Patient discharged Performed By: #### L 500.2500, L100.0100 ####[facility] [address] [place], [address] CL Normal 98-108 [facility] Comment on above: Result Comment: Canc elled via OM: Order cancelled - Patient discharged Performed By: #### L 500.2500, L100.0100 ####[facility] [address] [place], [address] CO2 Normal 21.0-32.0 [facility] Comment on above: Result Comment: Canc elled via OM: Order cancelled - Patient discharged Performed By: #### L 500.2500, L100.0100 ####[facility] [address] [place], [address] CREAT,SERUM Normal 0.70-1.20 [facility] Comment on above: Result Comment: Canc elled via OM: Order cancelled - Patient discharged Performed By: #### L 500.2500, L100.0100 ####[facility] [address] [place], [address] eGFR Normal >60 [facility] Comment on above: Result Comment: Canc elled via OM: Order cancelled - Patient discharged Performed By: #### L 500.2500, L100.0100 ####[facility] [address] [place], [address] GAP Normal 5-15 [facility] Comment on above: Result Comment: Canc elled via OM: Order cancelled - Patient discharged Performed By: #### L 500.2500, L100.0100 ####[facility] [address] [place], [address] GLU Normal 70-99 [facility] Comment on above: Result Comment: Canc elled via OM: Order cancelled - Patient discharged Performed By: #### L 500.2500, L100.0100 ####[facility] [address] [place], [address] Potassium Normal 3.3-5.1 [facility] Comment on above: Result Comment: Canc elled via OM: Order cancelled - Patient discharged Performed By: #### L 500.2500, L100.0100 ####[facility] [address] [place], [address] Basic Metabolic Profile (BMP) Normal 133-145 [facility] Comment on above: Result Comment: Canc elled via OM: Order cancelled - Patient discharged Performed By: #### L 500.2500, L100.0100 ####[facility] [address] [place], [address] CBC W/Diff, Automatedon 09- Absolute Neut Normal 2.0-7.7 [facility] Comment on above: Result Comment: Canc elled via OM: Order cancelled - Patient discharged Performed By: #### L 500.2500, L100.0100 ####[facility] [address] [place], [address] HCT Normal 37-47 [facility] Comment on above: Result Comment: Canc elled via OM: Order cancelled - Patient discharged Performed By: #### L 500.2500, L100.0100 ####[facility] [address] [place], [address] HGB Normal 12.0-15.0 [facility] Comment on above: Result Comment: Canc elled via OM: Order cancelled - Patient discharged Performed By: #### L 500.2500, L100.0100 ####[facility] [address] [place], [address] MCH Normal 27.0-32.0 [facility] Comment on above: Result Comment: Canc elled via OM: Order cancelled - Patient discharged Performed By: #### L 500.2500, L100.0100 ####[facility] [address] [place], [address] MCHC Normal 32-36 [facility] Comment on above: Result Comment: Canc elled via OM: Order cancelled - Patient discharged Performed By: #### L 500.2500, L100.0100 ####[facility] [address] [place], [address] MCV Normal 81-99 [facility] Comment on above: Result Comment: Canc elled via OM: Order cancelled - Patient discharged Performed By: #### L 500.2500, L100.0100 ####[facility] [address] [place], [address] NEUT% Normal 47-70 [facility] Comment on above: Result Comment: Canc elled via OM: Order cancelled - Patient discharged Performed By: #### L 500.2500, L100.0100 ####[facility] [address] [place], [address] PLT Normal 150-450 [facility] Comment on above: Result Comment: Canc elled via OM: Order cancelled - Patient discharged Performed By: #### L 500.2500, L100.0100 ####[facility] [address] [place], [address] RBC Normal 4.2-5.4 [facility] Comment on above: Result Comment: Canc elled via OM: Order cancelled - Patient discharged Performed By: #### L 500.2500, L100.0100 ####[facility] [address] [place], [address] RDW CV Normal 11.6-14.6 [facility] Comment on above: Result Comment: Canc elled via OM: Order cancelled - Patient discharged Performed By: #### L 500.2500, L100.0100 ####[facility] [address] [place], [address] RDW SD Normal 35.1-43.9 [facility] Comment on above: Result Comment: Canc elled via OM: Order cancelled - Patient discharged Performed By: #### L 500.2500, L100.0100 ####[facility] [address] [place], [address] WBC Normal 4.4-11.0 [facility] Comment on above: Result Comment: Canc elled via OM: Order cancelled - Patient discharged Performed By: #### L 500.2500, L100.0100 ####[facility] [address] [place], [address] Basic Metabolic Profile (BMP )on 02-22-2025 BUN Normal 4-19 [facility] Comment on above: Result Comment: Canc elled via OM: Order cancelled - Patient discharged Performed By: #### L 100.0100, L500.2500 ####[facility] [address] [place], [address] BUN/CRE Normal 10-20 [facility] Comment on above: Result Comment: Canc elled via OM: Order cancelled - Patient discharged Performed By: #### L 100.0100, L500.2500 ####[facility] [address] [place], [address] Calcium Normal 7.6-11.0 [facility] Comment on above: Result Comment: Canc elled via OM: Order cancelled - Patient discharged Performed By: #### L 100.0100, L500.2500 ####[facility] [address] [place], [address] CL Normal 98-108 [facility] Comment on above: Result Comment: Canc elled via OM: Order cancelled - Patient discharged Performed By: #### L 100.0100, L500.2500 ####[facility] [address] [place], [address] CO2 Normal 21.0-32.0 [facility] Comment on above: Result Comment: Canc elled via OM: Order cancelled - Patient discharged Performed By: #### L 100.0100, L500.2500 ####[facility] [address] [place], [address] CREAT,SERUM Normal 0.70-1.20 [facility] Comment on above: Result Comment: Canc elled via OM: Order cancelled - Patient discharged Performed By: #### L 100.0100, L500.2500 ####[facility] [address] [place], [address] eGFR Normal >60 [facility] Comment on above: Result Comment: Canc elled via OM: Order cancelled - Patient discharged Performed By: #### L 100.0100, L500.2500 ####[facility] [address] [place], [address] GAP Normal 5-15 [facility] Comment on above: Result Comment: Canc elled via OM: Order cancelled - Patient discharged Performed By: #### L 100.0100, L500.2500 ####[facility] [address] [place], [address] GLU Normal 70-99 [facility] Comment on above: Result Comment: Canc elled via OM: Order cancelled - Patient discharged Performed By: #### L 100.0100, L500.2500 ####[facility] [address] [place], [address] Potassium Normal 3.3-5.1 [facility] Comment on above: Result Comment: Canc elled via OM: Order cancelled - Patient discharged Performed By: #### L 100.0100, L500.2500 ####[facility] [address] [place], [address] Basic Metabolic Profile (BMP) Normal 133-145 [facility] Comment on above: Result Comment: Canc elled via OM: Order cancelled - Patient discharged Performed By: #### L 100.0100, L500.2500 ####[facility] [address] [place], [address] CBC W/Diff, Automatedon 09-1 0-2024 Absolute Neut Normal 2.0-7.7 [facility] Comment on above: Result Comment: Canc elled via OM: Order cancelled - Patient discharged Performed By: #### L 100.0100, L500.2500 ####[facility] [address] [place], [address] HCT Normal 37-47 [facility] Comment on above: Result Comment: Canc elled via OM: Order cancelled - Patient discharged Performed By: #### L 100.0100, L500.2500 ####[facility] [address] [place], [address] HGB Normal 12.0-15.0 [facility] Comment on above: Result Comment: Canc elled via OM: Order cancelled - Patient discharged Performed By: #### L 100.0100, L500.2500 ####[facility] [address] [place], [address] MCH Normal 27.0-32.0 [facility] Comment on above: Result Comment: Canc elled via OM: Order cancelled - Patient discharged Performed By: #### L 100.0100, L500.2500 ####[facility] [address] [place], [address] MCHC Normal 32-36 [facility] Comment on above: Result Comment: Canc elled via OM: Order cancelled - Patient discharged Performed By: #### L 100.0100, L500.2500 ####[facility] [address] [place], [address] MCV Normal 81-99 [facility] Comment on above: Result Comment: Canc elled via OM: Order cancelled - Patient discharged Performed By: #### L 100.0100, L500.2500 ####[facility] [address] [place], [address] NEUT% Normal 47-70 [facility] Comment on above: Result Comment: Canc elled via OM: Order cancelled - Patient discharged Performed By: #### L 100.0100, L500.2500 ####[facility] [address] [place], [address] PLT Normal 150-450 [facility] Comment on above: Result Comment: Canc elled via OM: Order cancelled - Patient discharged Performed By: #### L 100.0100, L500.2500 ####[facility] [address] [place], [address] RBC Normal 4.2-5.4 [facility] Comment on above: Result Comment: Canc elled via OM: Order cancelled - Patient discharged Performed By: #### L 100.0100, L500.2500 ####[facility] [address] [place], [address] RDW CV Normal 11.6-14.6 [facility] Comment on above: Result Comment: Canc elled via OM: Order cancelled - Patient discharged Performed By: #### L 100.0100, L500.2500 ####[facility] [address] [place], [address] RDW SD Normal 35.1-43.9 [facility] Comment on above: Result Comment: Canc elled via OM: Order cancelled - Patient discharged Performed By: #### L 100.0100, L500.2500 ####[facility] [address] [place], [address] WBC Normal 4.4-11.0 [facility] Comment on above: Result Comment: Canc elled via OM: Order cancelled - Patient discharged Performed By: #### L 100.0100, L500.2500 ####[facility] [address] [place], [address] Absolute lymphocyte countOrd ered By: Genevieve Wu on 02-21-2025 Lymphocytes Auto (Unsp spec) [#/Vol] 1.74 10*3/uL 0.83-4.51 [facility] Anion gap in Serum or Plasma Ordered By: Genevieve Wu on 02-21-2025 Anion gap [Moles/Vol] 14 mmol/L 5- [facility] Automated lymphocyte count a s percentage of total leukocytesOrdered By: Gerardokarleysharon Wu on 02-21-2025 Lymphocytes/100 WBC Auto (Unsp spec) 21.8 % -41 [facility] BUN/creatinine ratioOrdered By: Gerardoswan riversharon Wu on 02-21-2025 Urea nitrogen/Creatinine [Mass ratio] 24.3 mg/mg High 10- [facility] Basic Metabolic Profile (BMP )on 02-21-2025 BUN Normal 4-19 [facility] Comment on above: Result Comment: Canc elled via OM: Order cancelled - Patient discharged Performed By: #### L 500.2500, L100.0100 ####[facility] [address] [place], [address] BUN/CRE Normal 10- [facility] Comment on above: Result Comment: Canc elled via OM: Order cancelled - Patient discharged Performed By: #### L 500.2500, L100.0100 ####[facility] [address] [place], [address] Calcium Normal 7.6-11.0 [facility] Comment on above: Result Comment: Canc elled via OM: Order cancelled - Patient discharged Performed By: #### L 500.2500, L100.0100 ####[facility] [address] [place], [address] CL Normal 98-108 [facility] Comment on above: Result Comment: Canc elled via OM: Order cancelled - Patient discharged Performed By: #### L 500.2500, L100.0100 ####[facility] [address] [place], [address] CO2 Normal 21.0-32.0 [facility] Comment on above: Result Comment: Canc elled via OM: Order cancelled - Patient discharged Performed By: #### L 500.2500, L100.0100 ####[facility] [address] [place], [address] CREAT,SERUM Normal 0.70-1.20 [facility] Comment on above: Result Comment: Canc elled via OM: Order cancelled - Patient discharged Performed By: #### L 500.2500, L100.0100 ####[facility] [address] [place], [address] eGFR Normal >60 [facility] Comment on above: Result Comment: Canc elled via OM: Order cancelled - Patient discharged Performed By: #### L 500.2500, L100.0100 ####[facility] [address] [place], [address] GAP Normal 5-15 [facility] Comment on above: Result Comment: Canc elled via OM: Order cancelled - Patient discharged Performed By: #### L 500.2500, L100.0100 ####[facility] [address] [place], [address] GLU Normal 70-99 [facility] Comment on above: Result Comment: Canc elled via OM: Order cancelled - Patient discharged Performed By: #### L 500.2500, L100.0100 ####[facility] [address] [place], [address] Potassium Normal 3.3-5.1 [facility] Comment on above: Result Comment: Canc elled via OM: Order cancelled - Patient discharged Performed By: #### L 500.2500, L100.0100 ####[facility] [address] [place], [address] Basic Metabolic Profile (BMP) Normal 133-145 [facility] Comment on above: Result Comment: Canc elled via OM: Order cancelled - Patient discharged Performed By: #### L 500.2500, L100.0100 ####[facility] [address] [place], [address] Basophil percentageOrdered B y: Genevieve Wu on 02-21-2025 Basophils/100 WBC (Bld) 0.5 % 0-1 [facility] CBC W/Diff, Automatedon 09- Absolute Neut Normal 2.0-7.7 [facility] Comment on above: Result Comment: Canc elled via OM: Order cancelled - Patient discharged Performed By: #### L 500.2500, L100.0100 ####[facility] [address] [place], [address] HCT Normal 37-47 [facility] Comment on above: Result Comment: Canc elled via OM: Order cancelled - Patient discharged Performed By: #### L 500.2500, L100.0100 ####[facility] [address] [place], [address] HGB Normal 12.0-15.0 [facility] Comment on above: Result Comment: Canc elled via OM: Order cancelled - Patient discharged Performed By: #### L 500.2500, L100.0100 ####[facility] [address] [place], [address] MCH Normal 27.0-32.0 [facility] Comment on above: Result Comment: Canc elled via OM: Order cancelled - Patient discharged Performed By: #### L 500.2500, L100.0100 ####[facility] [address] [place], [address] MCHC Normal 32-36 [facility] Comment on above: Result Comment: Canc elled via OM: Order cancelled - Patient discharged Performed By: #### L 500.2500, L100.0100 ####[facility] [address] [place], [address] MCV Normal 81-99 [facility] Comment on above: Result Comment: Canc elled via OM: Order cancelled - Patient discharged Performed By: #### L 500.2500, L100.0100 ####[facility] [address] [place], [address] NEUT% Normal 47-70 [facility] Comment on above: Result Comment: Canc elled via OM: Order cancelled - Patient discharged Performed By: #### L 500.2500, L100.0100 ####[facility] [address] [place], [address] PLT Normal 150-450 [facility] Comment on above: Result Comment: Canc elled via OM: Order cancelled - Patient discharged Performed By: #### L 500.2500, L100.0100 ####[facility] [address] [place], [address] RBC Normal 4.2-5.4 [facility] Comment on above: Result Comment: Canc elled via OM: Order cancelled - Patient discharged Performed By: #### L 500.2500, L100.0100 ####[facility] [address] [place], [address] RDW CV Normal 11.6-14.6 [facility] Comment on above: Result Comment: Canc elled via OM: Order cancelled - Patient discharged Performed By: #### L 500.2500, L100.0100 ####[facility] [address] [place], [address] RDW SD Normal 35.1-43.9 [facility] Comment on above: Result Comment: Canc elled via OM: Order cancelled - Patient discharged Performed By: #### L 500.2500, L100.0100 ####[facility] [address] [place], [address] WBC Normal 4.4-11.0 [facility] Comment on above: Result Comment: Canc elled via OM: Order cancelled - Patient discharged Performed By: #### L 500.2500, L100.0100 ####[facility] [address] [place], [address] Carbon dioxide, total [Moles /volume] in Central venous bloodOrdered By: Genevieve Wu on 02-21-2025 CO2 [Moles/Vol] 20.9 mmol/L Low 21.0-32.0 [facility] Chloride assayOrdered By: Abe Wu on 02-21-2025 Chloride [Moles/Vol] 104 mmol/L 98-108 [facility] Eosinophil percentageOrdered By: [facility]es[facility] on 02-21-2025 Eosinophils/100 WBC (Bld) 2.5 % 0-5 [facility] Erythrocyte distribution wid th ratioOrdered By: [facility]rokeesharon Wu on 02-21-2025 Erythrocyte distribution width (RBC) [Ratio] 15.4 % High 11.6-14.6 [facility] Erythrocyte distribution wid th standard deviationOrdered By: mihirswan riversharon Wu on 02-21-2025 Erythrocyte distribution width (RBC) [Ratio] 50.3 fl High 35.1-43.9 [facility] Glomerular filtration rate ( GFR) estimation/1.73 sq m using serum, plasma, or whole bOrdered By: mihirswan riversharon Wu on 02-21-2025 GFR/1.73 sq M.predicted among non-blacks MDRD (S/P/Bld) [Vol rate/Area] 60 mL/min/{1.73_m2} >60 [facility] Hematocrit Auto (Bld) [Volum e fraction]Ordered By: Genevieve Wu on 02-21-2025 Hematocrit (Bld) [Volume fraction] 33.6 % Low 37-47 [facility] Hemoglobin measurementOrdere d By: haseeb Wu 02-21-2025 Hemoglobin (Bld) [Mass/Vol] 10.6 g/dL Low 12.0-15.0 [facility] Immature granulocytes/100 WB C Auto (Bld)Ordered By: [facility] Cherokeesharon Wu 02-21-2025 Immature granulocytes/100 WBC (Bld) 1.500 % High 0.0-0.9 [facility] MCV (mean corpuscular volume ) determinationOrdered By: Genevieve Wu on 02-21-2025 MCV (RBC) [Entitic vol] 89.1 fL 81-99 [facility] Mean corpuscular hemoglobin (MCH) determinationOrdered By: Abehaseeb Wu on 02-21-2025 MCH (RBC) [Entitic mass] 28.1 pg 27.0-32.0 [facility] Monocyte percentageOrdered B y: Abehaseeb Wu on 02-21-2025 Monocytes/100 WBC (Bld) 11.4 % High 0-10 [facility] Neutrophil percentageOrdered By: mihirswan riversharon Wu on 02-21-2025 Neutrophils/100 WBC (Bld) 62.3 % 47-70 [facility] Platelet countOrdered By: Abe yasminsharon Wu on 02-21-2025 Platelets (Bld) [#/Vol] 357 10*3/uL 150-450 [facility] Potassium measurement (mass/ volume)Ordered By: Genevieve Wu on 02-21-2025 Potassium (Unsp spec) [Mass/Vol] 3.5 mmol/L 3.3-5.1 [facility] RBC Auto (Bld) [#/Vol]Ordere d By: Genevieve Wu on 02-21-2025 RBC (Bld) [#/Vol] 3.77 10*6/uL Low 4.2-5.4 [facility] Serum creatinine measurement (mass/volume)Ordered By: Genevieve Wu on 02-21-2025 Creatinine [Mass/Vol] 0.94 mg/dL 0.70-1.20 [facility] Serum glucose measurement (m ass/volume)Ordered By: Genevieve Wu on 02-21-2025 Glucose [Mass/Vol] 91 mg/dL 70-99 [facility] Serum or plasma calcium candice urement (mass/volume)Ordered By: Genevieve Wu on 02-21-2025 Calcium [Mass/Vol] 9.0 mg/dL 7.6-11.0 [facility] Serum or plasma urea nitroge n measurement (mass/volume)Ordered By: Genevieve Wu on 02-21-2025 Urea nitrogen [Mass/Vol] 23 mg/dL High 4- [facility] Sodium levelOrdered By: Gerardo Wu on 02-21-2025 Sodium [Moles/Vol] 138 mmol/L 133-145 [facility] White blood cell (WBC) count Ordered By: Genevieve Wu on 02-21-2025 WBC (Bld) [#/Vol] 8.0 10*3/uL 4.4-11.0 [facility] Basic Metabolic Profile (BMP )on 02-20-2025 BUN Normal 4-19 [facility] Comment on above: Result Comment: Canc elled via OM: Order cancelled - Patient discharged Performed By: #### L 500.2500, L100.0100 ####[facility] [address] [facility] [address] BUN/CRE Normal 10-20 [facility] Comment on above: Result Comment: Canc elled via OM: Order cancelled - Patient discharged Performed By: #### L 500.2500, L100.0100 ####[facility] [address] [place], [address] Calcium Normal 7.6-11.0 [facility] Comment on above: Result Comment: Canc elled via OM: Order cancelled - Patient discharged Performed By: #### L 500.2500, L100.0100 ####[facility] [address] [place], [address] CL Normal 98-108 [facility] Comment on above: Result Comment: Canc elled via OM: Order cancelled - Patient discharged Performed By: #### L 500.2500, L100.0100 ####[facility] [address] [place], [address] CO2 Normal 21.0-32.0 [facility] Comment on above: Result Comment: Canc elled via OM: Order cancelled - Patient discharged Performed By: #### L 500.2500, L100.0100 ####[facility] [address] [place], [address] CREAT,SERUM Normal 0.70-1.20 [facility] Comment on above: Result Comment: Canc elled via OM: Order cancelled - Patient discharged Performed By: #### L 500.2500, L100.0100 ####[facility] [address] [place], [address] eGFR Normal >60 [facility] Comment on above: Result Comment: Canc elled via OM: Order cancelled - Patient discharged Performed By: #### L 500.2500, L100.0100 ####[facility] [address] [place], [address] GAP Normal 5-15 [facility] Comment on above: Result Comment: Canc elled via OM: Order cancelled - Patient discharged Performed By: #### L 500.2500, L100.0100 ####[facility] [address] [place], [address] GLU Normal 70-99 [facility] Comment on above: Result Comment: Canc elled via OM: Order cancelled - Patient discharged Performed By: #### L 500.2500, L100.0100 ####[facility] [address] [place], [address] Potassium Normal 3.3-5.1 [facility] Comment on above: Result Comment: Canc elled via OM: Order cancelled - Patient discharged Performed By: #### L 500.2500, L100.0100 ####[facility] [address] [place], [address] Basic Metabolic Profile (BMP) Normal 133-145 [facility] Comment on above: Result Comment: Canc elled via OM: Order cancelled - Patient discharged Performed By: #### L 500.2500, L100.0100 ####[facility] [address] [place], [address] CBC W/Diff, Automatedon 09-0 -2024 Absolute Neut Normal 2.0-7.7 [facility] Comment on above: Result Comment: Canc elled via OM: Order cancelled - Patient discharged Performed By: #### L 500.2500, L100.0100 ####[facility] [address] [place], [address] HCT Normal 37-47 [facility] Comment on above: Result Comment: Canc elled via OM: Order cancelled - Patient discharged Performed By: #### L 500.2500, L100.0100 ####[facility] [address] [place], [address] HGB Normal 12.0-15.0 [facility] Comment on above: Result Comment: Canc elled via OM: Order cancelled - Patient discharged Performed By: #### L 500.2500, L100.0100 ####[facility] [address] [place], [address] MCH Normal 27.0-32.0 [facility] Comment on above: Result Comment: Canc elled via OM: Order cancelled - Patient discharged Performed By: #### L 500.2500, L100.0100 ####[facility] [address] [place], [address] MCHC Normal 32-36 [facility] Comment on above: Result Comment: Canc elled via OM: Order cancelled - Patient discharged Performed By: #### L 500.2500, L100.0100 ####[facility] [address] [place], [address] MCV Normal 81-99 [facility] Comment on above: Result Comment: Canc elled via OM: Order cancelled - Patient discharged Performed By: #### L 500.2500, L100.0100 ####[facility] [address] [place], [address] NEUT% Normal 47-70 [facility] Comment on above: Result Comment: Canc elled via OM: Order cancelled - Patient discharged Performed By: #### L 500.2500, L100.0100 ####[facility] [address] [place], [address] PLT Normal 150-450 [facility] Comment on above: Result Comment: Canc elled via OM: Order cancelled - Patient discharged Performed By: #### L 500.2500, L100.0100 ####[facility] [address] [place], [address] RBC Normal 4.2-5.4 [facility] Comment on above: Result Comment: Canc elled via OM: Order cancelled - Patient discharged Performed By: #### L 500.2500, L100.0100 ####[facility] [address] [place], [address] RDW CV Normal 11.6-14.6 [facility] Comment on above: Result Comment: Canc elled via OM: Order cancelled - Patient discharged Performed By: #### L 500.2500, L100.0100 ####[facility] [address] [place], [address] RDW SD Normal 35.1-43.9 [facility] Comment on above: Result Comment: Canc elled via OM: Order cancelled - Patient discharged Performed By: #### L 500.2500, L100.0100 ####[facility] [address] [place], [address] WBC Normal 4.4-11.0 [facility] Comment on above: Result Comment: Canc elled via OM: Order cancelled - Patient discharged Performed By: #### L 500.2500, L100.0100 ####[facility] [address] [place], [address] Absolute lymphocyte countOrd ered By: Felicia Paniagua on 02-19-2025 Lymphocytes Auto (Unsp spec) [#/Vol] 1.51 10*3/uL 0.83-4.51 [facility] Anion gap in Serum or Plasma Ordered By: Felicia Arcelia on 02-19-2025 Anion gap [Moles/Vol] 11 mmol/L 5-15 [facility] Automated lymphocyte count a s percentage of total leukocytesOrdered By: Felicai Arcelia on 02-19-2025 Lymphocytes/100 WBC Auto (Unsp spec) 16.5 % Low 19-41 [facility] BUN/creatinine ratioOrdered By: Feliciakali Paniagua on 02-19-2025 Urea nitrogen/Creatinine [Mass ratio] 26.7 mg/mg High 10-20 [facility] Basic Metabolic Profile (BMP )on 02-19-2025 BUN/CRE 26.7 RATIO High 10-20 [facility] Comment on above: Performed By: #### L 500.2500, L100.0100 ####[facility] [address] [place], [address] Calcium [Mass/Vol] 9.1 mg/dL Normal 7.6-11.0 [facility] Comment on above: Performed By: #### L 500.2500, L100.0100 ####[facility] [address] [place], [address] Chloride [Moles/Vol] 106 mmol/L Normal 98-108 [facility] Comment on above: Performed By: #### L 500.2500, L100.0100 ####[facility] [address] [place], [address] CO2 [Moles/Vol] 23.0 mmol/L Normal 21.0-32.0 [facility] Comment on above: Performed By: #### L 500.2500, L100.0100 ####[facility] [address] [place], [address] Creatinine [Mass/Vol] 0.78 mg/dL Normal 0.70-1.20 [facility] Comment on above: Performed By: #### L 500.2500, L100.0100 ####[facility] [address] [place], [address] ECRCL 45.54 ml/min Low 50-250 [facility] Comment on above: Performed By: #### L 500.2500, L100.0100 ####[facility] [address] [place], [address] GAP 11 Normal 5-15 [facility] Comment on above: Performed By: #### L 500.2500, L100.0100 ####[facility] [address] [place], [address] GFR/1.73 sq M.predicted among non-blacks MDRD (S/P/Bld) [Vol rate/Area] 75 mL/min/{1.73_m2} Normal >60 [facility] Comment on above: Result Comment: mL/m in/1.73m2 CKD-EPI Creatinine Equation (2020) Performed By: #### L 500.2500, L100.0100 ####[facility] [address] [place], [address] Glucose [Mass/Vol] 102 mg/dL High 70-99 [facility] Comment on above: Performed By: #### L 500.2500, L100.0100 ####[facility] [address] [place], [address] Potassium [Moles/Vol] 3.9 mmol/L Normal 3.3-5.1 [facility] Comment on above: Performed By: #### L 500.2500, L100.0100 ####[facility] [address] [place], [address] Sodium [Moles/Vol] 139 mmol/L Normal 133-145 [facility] Comment on above: Performed By: #### L 500.2500, L100.0100 ####[facility] [address] [place], [address] Urea nitrogen [Mass/Vol] 21 mg/dL High 4-19 [facility] Comment on above: Performed By: #### L 500.2500, L100.0100 ####[facility] [address] [place], [address] Basophil percentageOrdered B y: Felicia Paniagua on 02-19-2025 Basophils/100 WBC (Bld) 0.3 % 0-1 [facility] CBC W/Diff, Automatedon Absolute Lymph 1.51 X10 3/uL Normal 0.83-4.51 [facility] Comment on above: Performed By: #### L 500.2500, L100.0100 ####[facility] [address] [place], [address] Absolute Neut 6.3 X10 3/uL Normal 2.0-7.7 [facility] Comment on above: Performed By: #### L 500.2500, L100.0100 ####[facility] [address] [place], [address] Basophils/100 WBC (Bld) 0.3 % Normal 0-1 [facility] Comment on above: Performed By: #### L 500.2500, L100.0100 ####[facility] [address] [place], [address] Eosinophils/100 WBC (Bld) 2.2 % Normal 0-5 [facility] Comment on above: Performed By: #### L 500.2500, L100.0100 ####[facility] [address] [place], [address] Erythrocyte distribution width (RBC) [Ratio] 15.8 % High 11.6-14.6 [facility] Comment on above: Performed By: #### L 500.2500, L100.0100 ####[facility] [address] [place], [address] Hematocrit (Bld) [Volume fraction] 35.0 % Low 37-47 [facility] Comment on above: Performed By: #### L 500.2500, L100.0100 ####[facility] [address] [place], [address] Hemoglobin (Bld) [Mass/Vol] 11.0 g/dL Low 12.0-15.0 [facility] Comment on above: Performed By: #### L 500.2500, L100.0100 ####[facility] [address] [place], [address] IG% 0.700 Normal 0.0-0.9 [facility] Comment on above: Result Comment: IG% - Immature Granulocytes (promyelocytes, myelocytes andmetamyelocytes) > 1% indicates that a LEFT SHIFT is Present. Performed By: #### L 500.2500, L100.0100 ####[facility] [address] [place], [address] Lymphocytes/100 WBC (Bld) 16.5 % Low 19-41 [facility] Comment on above: Performed By: #### L 500.2500, L100.0100 ####[facility] [address] [place], [address] MCH (RBC) [Entitic mass] 28.2 pg Normal 27.0-32.0 [facility] Comment on above: Performed By: #### L 500.2500, L100.0100 ####[facility] [address] [place], [address] MCHC (RBC) [Mass/Vol] 31.4 g/dL Low 32-36 [facility] Comment on above: Performed By: #### L 500.2500, L100.0100 ####[facility] [address] [place], [address] MCV (RBC) [Entitic vol] 89.7 fL Normal 81-99 [facility] Comment on above: Performed By: #### L 500.2500, L100.0100 ####[facility] [address] [place], [address] Monocytes/100 WBC (Bld) 11.2 % High 0-10 [facility] Comment on above: Performed By: #### L 500.2500, L100.0100 ####[facility] [address] [place], [address] Neutrophils/100 WBC (Bld) 69.1 % Normal 47-70 [facility] Comment on above: Performed By: #### L 500.2500, L100.0100 ####[facility] [address] [place], [address] Nucleated RBC (Bld) [#/Vol] 0 10*3/uL Normal 0-5 [facility] Comment on above: Performed By: #### L 500.2500, L100.0100 ####[facility] [address] [place], [address] Platelet mean volume (Bld) [Entitic vol] 8.8 fL Normal 6.2-12.0 [facility] Comment on above: Performed By: #### L 500.2500, L100.0100 ####[facility] [address] [place], [address] Platelets (Bld) [#/Vol] 312 10*3/uL Normal 150-450 [facility] Comment on above: Performed By: #### L 500.2500, L100.0100 ####[facility] [address] [place], [address] RBC (Bld) [#/Vol] 3.90 10*6/uL Low 4.2-5.4 [facility] Comment on above: Performed By: #### L 500.2500, L100.0100 ####[facility] [address] [place], [address] RDW SD 51.9 fl High 35.1-43.9 [facility] Comment on above: Performed By: #### L 500.2500, L100.0100 ####[facility] [address] [place], [address] WBC (Bld) [#/Vol] 9.1 10*3/uL Normal 4.4-11.0 [facility] Comment on above: Performed By: #### L 500.2500, L100.0100 ####[facility] [address] [place], [address] Carbon dioxide, total [Moles /volume] in Central venous bloodOrdered By: Felicia Paniagua on 02-19-2025 CO2 [Moles/Vol] 23.0 mmol/L 21.0-32.0 [facility] Chloride assayOrdered By: Patel Paniagua on 02-19-2025 Chloride [Moles/Vol] 106 mmol/L 98-108 [facility] Discharge Instructionon 09-0 Discharge Instruction Normal [facility] Eosinophil percentageOrdered By: Felicia Paniagua on 02-19-2025 Eosinophils/100 WBC (Bld) 2.2 % 0-5 [facility] Erythrocyte distribution wid th ratioOrdered By: Felicia Paniagua on 02-19-2025 Erythrocyte distribution width (RBC) [Ratio] 15.8 % High 11.6-14.6 [facility] Erythrocyte distribution wid th standard deviationOrdered By: Felicia Paniagua on 02-19-2025 Erythrocyte distribution width (RBC) [Ratio] 51.9 fl High 35.1-43.9 [facility] Glomerular filtration rate ( GFR) estimation/1.73 sq m using serum, plasma, or whole bOrdered By: Felicia Paniagua on 02-19-2025 GFR/1.73 sq M.predicted among non-blacks MDRD (S/P/Bld) [Vol rate/Area] 75 mL/min/{1.73_m2} >60 [facility] Hematocrit Auto (Bld) [Volum e fraction]Ordered By: Felicia Paniagua on 02-19-2025 Hematocrit (Bld) [Volume fraction] 35.0 % Low 37-47 [facility] Hemoglobin measurementOrdere d By: Felicia Paniagua on 02-19-2025 Hemoglobin (Bld) [Mass/Vol] 11.0 g/dL Low 12.0-15.0 [facility] Immature granulocytes/100 WB C Auto (Bld)Ordered By: Felicia Paniagua on 02-19-2025 Immature granulocytes/100 WBC (Bld) 0.700 % 0.0-0.9 [facility] MCV (mean corpuscular volume ) determinationOrdered By: Felicia Paniagua on 02-19-2025 MCV (RBC) [Entitic vol] 89.7 fL 81-99 [facility] Mean corpuscular hemoglobin (MCH) determinationOrdered By: Felicia Paniagua on 02-19-2025 MCH (RBC) [Entitic mass] 28.2 pg 27.0-32.0 [facility] Monocyte percentageOrdered B y: Felicia Paniagua on 02-19-2025 Monocytes/100 WBC (Bld) 11.2 % High 0-10 [facility] Neutrophil percentageOrdered By: Felicia Paniagua on 02-19-2025 Neutrophils/100 WBC (Bld) 69.1 % 47-70 [facility] Platelet countOrdered By: Na patel Paniagua on 02-19-2025 Platelets (Bld) [#/Vol] 312 10*3/uL 150-450 [facility] Potassium measurement (mass/ volume)Ordered By: Felicia Paniagua on 02-19-2025 Potassium (Unsp spec) [Mass/Vol] 3.9 mmol/L 3.3-5.1 [facility] RBC Auto (Bld) [#/Vol]Ordere d By: Felicia Paniagua on 02-19-2025 RBC (Bld) [#/Vol] 3.90 10*6/uL Low 4.2-5.4 [facility] Serum creatinine measurement (mass/volume)Ordered By: Felicia Paniagua on 02-19-2025 Creatinine [Mass/Vol] 0.78 mg/dL 0.70-1.20 [facility] Serum glucose measurement (m ass/volume)Ordered By: Felicia Paniagua on 02-19-2025 Glucose [Mass/Vol] 102 mg/dL High 70-99 [facility] Serum or plasma calcium candice urement (mass/volume)Ordered By: Felicia Paniagua on 02-19-2025 Calcium [Mass/Vol] 9.1 mg/dL 7.6-11.0 [facility] Serum or plasma urea nitroge n measurement (mass/volume)Ordered By: Felicia Paniagua on 02-19-2025 Urea nitrogen [Mass/Vol] 21 mg/dL High 4-19 [facility] Sodium levelOrdered By: Felicia Paniagua on 02-19-2025 Sodium [Moles/Vol] 139 mmol/L 133-145 [facility] White blood cell (WBC) count Ordered By: Felicia Paniagua on 02-19-2025 WBC (Bld) [#/Vol] 9.1 10*3/uL 4.4-11.0 [facility] Basic Metabolic Profile (BMP )on 02-18-2025 BUN/CRE 23.6 RATIO High 10-20 [facility] Comment on above: Order Comment: PATIE NT IS VERY AGGRESSIVE,PAN SILVA RN ASKED THAT WAKE HER. SPOKE TO JAY HANNAH, SHE WILL CALL ONCE PATIENTIS AWAKE AND WE ARE ABLE TO TRY HER Performed By: #### L 500.2500, L100.0100 ####[facility] [address] [place], [address] Calcium [Mass/Vol] 9.0 mg/dL Normal 7.6-11.0 [facility] Comment on above: Order Comment: PATIE NT IS VERY AGGRESSIVE,PAN SILVA RN ASKED THAT WAKE HER. SPOKE TO JAY HANNAH, SHE WILL CALL ONCE PATIENTIS AWAKE AND WE ARE ABLE TO TRY HER Performed By: #### L 500.2500, L100.0100 ####[facility] [address] [place], [address] Chloride [Moles/Vol] 105 mmol/L Normal 98-108 [facility] Comment on above: Order Comment: PATIE NT IS VERY AGGRESSIVE,PAN SILVA RN ASKED THAT WEDONT WAKE HER. SPOKE TO JAY RN, SHE WILL CALL ONCE PATIENTIS AWAKE AND WE ARE ABLE TO TRY HER Performed By: #### L 500.2500, L100.0100 ####[facility] [address] [place], [address] CO2 [Moles/Vol] 19.1 mmol/L Low 21.0-32.0 [facility] Comment on above: Order Comment: PATIE NT IS VERY AGGRESSIVE,PAN SILVA RN ASKED THAT [place] WAKE HER. SPOKE TO JAY RN, SHE WILL CALL ONCE PATIENTIS AWAKE AND WE ARE ABLE TO TRY HER Performed By: #### L 500.2500, L100.0100 ####[facility] [address] [place], [place], [phone] Creatinine [Mass/Vol] 0.77 mg/dL Normal 0.70-1.20 [facility] Comment on above: Order Comment: PATIE NT IS VERY AGGRESSIVE,PAN SILVA RN ASKED THAT [place] WAKE HER. SPOKE TO JAY RN, SHE WILL CALL ONCE PATIENTIS AWAKE AND WE ARE ABLE TO TRY HER Performed By: #### L 500.2500, L100.0100 ####[facility] [address] [place], [place], [phone] ECRCL 45.54 ml/min Low 50-250 [facility] Comment on above: Order Comment: PATIE NT IS VERY AGGRESSIVE,PAN SILVA RN ASKED THAT W[place] WAKE HER. SPOKE TO JAY RN, SHE WILL CALL ONCE PATIENTIS AWAKE AND WE ARE ABLE TO TRY HER Performed By: #### L 500.2500, L100.0100 ####[facility] [address] [place], [address] GAP 13 Normal 5-15 [facility] Comment on above: Order Comment: PATIE NT IS VERY AGGRESSIVE,PAN SILVA RN ASKED THAT W[place] WAKE HER. SPOKE TO JAY RN, SHE WILL CALL ONCE PATIENTIS AWAKE AND WE ARE ABLE TO TRY HER Performed By: #### L 500.2500, L100.0100 ####[facility] [address] [place], [address] GFR/1.73 sq M.predicted among non-blacks MDRD (S/P/Bld) [Vol rate/Area] 76 mL/min/{1.73_m2} Normal >60 [facility] Comment on above: Order Comment: PATIE NT IS VERY AGGRESSIVE,PAN SILVA RN ASKED THAT [place] WAKE HER. SPOKE TO JAY RN, SHE WILL CALL ONCE PATIENTIS AWAKE AND WE ARE ABLE TO TRY HER Result Comment: mL/m in/1.73m2 CKD-EPI Creatinine Equation (2020) Performed By: #### L 500.2500, L100.0100 ####[facility] [address] [place], [address] Glucose [Mass/Vol] 141 mg/dL High 70-99 [facility] Comment on above: Order Comment: PATIE NT IS VERY AGGRESSIVE,PAN SILVA RN ASKED THAT [place] WAKE HER. SPOKE TO JAY RN, SHE WILL CALL ONCE PATIENTIS AWAKE AND WE ARE ABLE TO TRY HER Performed By: #### L 500.2500, L100.0100 ####[facility] [address] [place], [address] Potassium [Moles/Vol] 4.0 mmol/L Normal 3.3-5.1 [facility] Comment on above: Order Comment: PATIE NT IS VERY AGGRESSIVE,PAN SILVA RN ASKED THAT [place] WAKE HER. SPOKE TO JAY RN, SHE WILL CALL ONCE PATIENTIS AWAKE AND WE ARE ABLE TO TRY HER Performed By: #### L 500.2500, L100.0100 ####[facility] [address] [place], [address] Sodium [Moles/Vol] 137 mmol/L Normal 133-145 [facility] Comment on above: Order Comment: PATIE NT IS VERY AGGRESSIVE,PAN SILVA RN ASKED THAT [place] WAKE HER. SPOKE TO JAY RN, SHE WILL CALL ONCE PATIENTIS AWAKE AND WE ARE ABLE TO TRY HER Performed By: #### L 500.2500, L100.0100 ####[facility] [address] [place], [address] Urea nitrogen [Mass/Vol] 18 mg/dL Normal 4-19 [facility] Comment on above: Order Comment: PATIE NT IS VERY AGGRESSIVE,PAN SILVA RN ASKED THAT WED WAKE HER. SPOKE TO JAY RN, SHE WILL CALL ONCE PATIENTIS AWAKE AND WE ARE ABLE TO TRY HER Performed By: #### L 500.2500, L100.0100 ####[facility] [address] [place], [address] CBC W/Diff, Automatedon 09-0 6-2024 Absolute Lymph 1.13 X10 3/uL Normal 0.83-4.51 [facility] Comment on above: Order Comment: PATIE NT IS VERY AGGRESSIVE,PAN SILVA RN ASKED THAT [place] HER. SPOKE TO JAY RN, SHE WILL CALL ONCE PATIENTIS AWAKE AND WE ARE ABLE TO TRY HER Performed By: #### L 500.2500, L100.0100 ####[facility] [address] [place], [address] Absolute Neut 5.5 X10 3/uL Normal 2.0-7.7 [facility] Comment on above: Order Comment: PATIE NT IS VERY AGGRESSIVE,PAN SILVA RN ASKED THAT WED WAKE HER. SPOKE TO JAY RN, SHE WILL CALL ONCE PATIENTIS AWAKE AND WE ARE ABLE TO TRY HER Performed By: #### L 500.2500, L100.0100 ####[facility] [address] [place], [address] Basophils/100 WBC (Bld) 0.4 % Normal 0-1 [facility] Comment on above: Order Comment: PATIE NT IS VERY AGGRESSIVE,PAN SILVA RN ASKED THAT [place] WAKE HER. SPOKE TO JAY RN, SHE WILL CALL ONCE PATIENTIS AWAKE AND WE ARE ABLE TO TRY HER Performed By: #### L 500.2500, L100.0100 ####[facility] [address] [place], [address] Eosinophils/100 WBC (Bld) 2.0 % Normal 0-5 [facility] Comment on above: Order Comment: PATIE NT IS VERY AGGRESSIVE,PAN SILVA RN ASKED THAT [place] WAKE HER. SPOKE TO JAY RN, SHE WILL CALL ONCE PATIENTIS AWAKE AND WE ARE ABLE TO TRY HER Performed By: #### L 500.2500, L100.0100 ####[facility] [address] [place], [address] Erythrocyte distribution width (RBC) [Ratio] 15.9 % High 11.6-14.6 [facility] Comment on above: Order Comment: PATIE NT IS VERY AGGRESSIVE,PAN SILVA RN ASKED THAT [place] HER. SPOKE TO JAY RN, SHE WILL CALL ONCE PATIENTIS AWAKE AND WE ARE ABLE TO TRY HER Performed By: #### L 500.2500, L100.0100 ####[facility] [address] [place], [address] Hematocrit (Bld) [Volume fraction] 37.0 % Normal 37-47 [facility] Comment on above: Order Comment: PATIE NT IS VERY AGGRESSIVE,PAN SILVA RN ASKED THAT [place] HER. SPOKE TO JAY RN, SHE WILL CALL ONCE PATIENTIS AWAKE AND WE ARE ABLE TO TRY HER Performed By: #### L 500.2500, L100.0100 ####[facility] [address] [place], [address] Hemoglobin (Bld) [Mass/Vol] 11.7 g/dL Low 12.0-15.0 [facility] Comment on above: Order Comment: PATIE NT IS VERY AGGRESSIVE,PAN SILVA RN ASKED THAT [place] HER. SPOKE TO JAY RN, SHE WILL CALL ONCE PATIENTIS AWAKE AND WE ARE ABLE TO TRY HER Performed By: #### L 500.2500, L100.0100 ####[facility] [address] [place], [address] IG% 0.700 Normal 0.0-0.9 [facility] Comment on above: Order Comment: PATIE NT IS VERY AGGRESSIVE,PAN SILVA RN ASKED THAT [place] HER. SPOKE TO JAY RN, SHE WILL CALL ONCE PATIENTIS AWAKE AND WE ARE ABLE TO TRY HER Result Comment: IG% - Immature Granulocytes (promyelocytes, myelocytes andmetamyelocytes) > 1% indicates that a LEFT SHIFT is Present. Performed By: #### L 500.2500, L100.0100 ####[facility] [address] [place], [address] Lymphocytes/100 WBC (Bld) 14.7 % Low 19-41 [facility] Comment on above: Order Comment: PATIE NT IS VERY AGGRESSIVE,PAN SILVA RN ASKED THAT [place] HER. SPOKE TO JAY RN, SHE WILL CALL ONCE PATIENTIS AWAKE AND WE ARE ABLE TO TRY HER Performed By: #### L 500.2500, L100.0100 ####[facility] [address] [place], [address] MCH (RBC) [Entitic mass] 28.2 pg Normal 27.0-32.0 [facility] Comment on above: Order Comment: PATIE NT IS VERY AGGRESSIVE,PAN SILVA RN ASKED THAT [place] HER. SPOKE TO JAY RN, SHE WILL CALL ONCE PATIENTIS AWAKE AND WE ARE ABLE TO TRY HER Performed By: #### L 500.2500, L100.0100 ####[facility] [address] [place], [address] MCHC (RBC) [Mass/Vol] 31.6 g/dL Low 32-36 [facility] Comment on above: Order Comment: PATIE NT IS VERY AGGRESSIVE,PAN SILVA RN ASKED THAT [place] HER. SPOKE TO JAY RN, SHE WILL CALL ONCE PATIENTIS AWAKE AND WE ARE ABLE TO TRY HER Performed By: #### L 500.2500, L100.0100 ####[facility] [address] [place], [address] MCV (RBC) [Entitic vol] 89.2 fL Normal 81-99 [facility] Comment on above: Order Comment: PATIE NT IS VERY AGGRESSIVE,PAN SILVA RN ASKED THAT [place] HER. SPOKE TO JAY RN, SHE WILL CALL ONCE PATIENTIS AWAKE AND WE ARE ABLE TO TRY HER Performed By: #### L 500.2500, L100.0100 ####[facility] [address] [place], [address] Monocytes/100 WBC (Bld) 10.8 % High 0-10 [facility] Comment on above: Order Comment: PATIE NT IS VERY AGGRESSIVE,PAN SILVA RN ASKED THAT [place] HER. SPOKE TO JAY RN, SHE WILL CALL ONCE PATIENTIS AWAKE AND WE ARE ABLE TO TRY HER Performed By: #### L 500.2500, L100.0100 ####[facility] [address] [place], [address] Neutrophils/100 WBC (Bld) 71.4 % High 47-70 [facility] Comment on above: Order Comment: PATIE NT IS VERY AGGRESSIVE,PAN SILVA RN ASKED THAT [place] HER. SPOKE TO JAY RN, SHE WILL CALL ONCE PATIENTIS AWAKE AND WE ARE ABLE TO TRY HER Performed By: #### L 500.2500, L100.0100 ####[facility] [address] [place], [address] Nucleated RBC (Bld) [#/Vol] 0 10*3/uL Normal 0-5 [facility] Comment on above: Order Comment: PATIE NT IS VERY AGGRESSIVE,PAN SILVA RN ASKED THAT [place] HER. SPOKE TO JAY RN, SHE WILL CALL ONCE PATIENTIS AWAKE AND WE ARE ABLE TO TRY HER Performed By: #### L 500.2500, L100.0100 ####[facility] [address] [place], [address] Platelet mean volume (Bld) [Entitic vol] 8.7 fL Normal 6.2-12.0 [facility] Comment on above: Order Comment: PATIE NT IS VERY AGGRESSIVE,PAN SILVA RN ASKED THAT [place] HER. SPOKE TO JAY RN, SHE WILL CALL ONCE PATIENTIS AWAKE AND WE ARE ABLE TO TRY HER Performed By: #### L 500.2500, L100.0100 ####[facility] [address] [place], [address] Platelets (Bld) [#/Vol] 338 10*3/uL Normal 150-450 [facility] Comment on above: Order Comment: PATIE NT IS VERY AGGRESSIVE,PAN SILVA RN ASKED THAT [place] HER. SPOKE TO JAY RN, SHE WILL CALL ONCE PATIENTIS AWAKE AND WE ARE ABLE TO TRY HER Performed By: #### L 500.2500, L100.0100 ####[facility] [address] [place], [address] RBC (Bld) [#/Vol] 4.15 10*6/uL Low 4.2-5.4 [facility] Comment on above: Order Comment: PATIE NT IS VERY AGGRESSIVE,PAN SILVA RN ASKED THAT [place] HER. SPOKE TO JAY RN, SHE WILL CALL ONCE PATIENTIS AWAKE AND WE ARE ABLE TO TRY HER Performed By: #### L 500.2500, L100.0100 ####[facility] [address] [place], [address] RDW SD 52.6 fl High 35.1-43.9 [facility] Comment on above: Order Comment: PATIE NT IS VERY AGGRESSIVE,PAN SILVA RN ASKED THAT [place] HER. SPOKE TO JAY RN, SHE WILL CALL ONCE PATIENTIS AWAKE AND WE ARE ABLE TO TRY HER Performed By: #### L 500.2500, L100.0100 ####[facility] [address] [place], [address] WBC (Bld) [#/Vol] 7.7 10*3/uL Normal 4.4-11.0 [facility] Comment on above: Order Comment: PATIE NT IS VERY AGGRESSIVE,PAN SILVA RN ASKED THAT [place] HER. SPOKE TO JAY RN, SHE WILL CALL ONCE PATIENTIS AWAKE AND WE ARE ABLE TO TRY HER Performed By: #### L 500.2500, L100.0100 ####[facility] [address] [place], [address] Basic Metabolic Profile (BMP )on 02-17-2025 BUN/CRE 23.8 RATIO High 10-20 [facility] Comment on above: Performed By: #### L 100.0100, L500.2500 ####[facility] [address] [place], [address] Calcium [Mass/Vol] 9.1 mg/dL Normal 7.6-11.0 [facility] Comment on above: Performed By: #### L 100.0100, L500.2500 ####[facility] [address] [place], [address] Chloride [Moles/Vol] 108 mmol/L Normal 98-108 [facility] Comment on above: Performed By: #### L 100.0100, L500.2500 ####[facility] [address] [place], [address] CO2 [Moles/Vol] 21.0 mmol/L Normal 21.0-32.0 [facility] Comment on above: Performed By: #### L 100.0100, L500.2500 ####[facility] [address] [place], [address] Creatinine [Mass/Vol] 0.69 mg/dL Low 0.70-1.20 [facility] Comment on above: Performed By: #### L 100.0100, L500.2500 ####[facility] [address] [place], [address] ECRCL 45.54 ml/min Low 50-250 [facility] Comment on above: Performed By: #### L 100.0100, L500.2500 ####[facility] [address] [place], [address] GAP 11 Normal 5-15 [facility] Comment on above: Performed By: #### L 100.0100, L500.2500 ####[facility] [address] [place], [address] GFR/1.73 sq M.predicted among non-blacks MDRD (S/P/Bld) [Vol rate/Area] 86 mL/min/{1.73_m2} Normal >60 [facility] Comment on above: Result Comment: mL/m in/1.73m2 CKD-EPI Creatinine Equation (2020) Performed By: #### L 100.0100, L500.2500 ####[facility] [address] [place], [address] Glucose [Mass/Vol] 112 mg/dL High 70-99 [facility] Comment on above: Performed By: #### L 100.0100, L500.2500 ####[facility] [address] [place], [address] Potassium [Moles/Vol] 3.7 mmol/L Normal 3.3-5.1 [facility] Comment on above: Performed By: #### L 100.0100, L500.2500 ####[facility] [address] [place], [address] Sodium [Moles/Vol] 141 mmol/L Normal 133-145 [facility] Comment on above: Performed By: #### L 100.0100, L500.2500 ####[facility] [address] [place], [address] Urea nitrogen [Mass/Vol] 16 mg/dL Normal 4-19 [facility] Comment on above: Performed By: #### L 100.0100, L500.2500 ####[facility] [address] [place], [address] CBC W/Diff, Automatedon 09-0 Absolute Lymph 1.55 X10 3/uL Normal 0.83-4.51 [facility] Comment on above: Performed By: #### L 100.0100, L500.2500 ####[facility] [address] [place], [address] Absolute Neut 4.6 X10 3/uL Normal 2.0-7.7 [facility] Comment on above: Performed By: #### L 100.0100, L500.2500 ####[facility] [address] [place], [address] Basophils/100 WBC (Bld) 0.4 % Normal 0-1 [facility] Comment on above: Performed By: #### L 100.0100, L500.2500 ####[facility] [address] [place], [address] Eosinophils/100 WBC (Bld) 3.1 % Normal 0-5 [facility] Comment on above: Performed By: #### L 100.0100, L500.2500 ####[facility] [address] [place], [address] Erythrocyte distribution width (RBC) [Ratio] 15.9 % High 11.6-14.6 [facility] Comment on above: Performed By: #### L 100.0100, L500.2500 ####[facility] [address] [place], [address] Hematocrit (Bld) [Volume fraction] 35.4 % Low 37-47 [facility] Comment on above: Performed By: #### L 100.0100, L500.2500 ####[facility] [address] [place], [address] Hemoglobin (Bld) [Mass/Vol] 11.3 g/dL Low 12.0-15.0 [facility] Comment on above: Performed By: #### L 100.0100, L500.2500 ####[facility] [address] [place], [address] IG% 0.500 Normal 0.0-0.9 [facility] Comment on above: Result Comment: IG% - Immature Granulocytes (promyelocytes, myelocytes andmetamyelocytes) > 1% indicates that a LEFT SHIFT is Present. Performed By: #### L 100.0100, L500.2500 ####[facility] [address] [place], [address] Lymphocytes/100 WBC (Bld) 21.0 % Normal 19-41 [facility] Comment on above: Performed By: #### L 100.0100, L500.2500 ####[facility] [address] [place], [address] MCH (RBC) [Entitic mass] 28.3 pg Normal 27.0-32.0 [facility] Comment on above: Performed By: #### L 100.0100, L500.2500 ####[facility] [address] [place], [address] MCHC (RBC) [Mass/Vol] 31.9 g/dL Low 32-36 [facility] Comment on above: Performed By: #### L 100.0100, L500.2500 ####[facility] [address] [place], [address] MCV (RBC) [Entitic vol] 88.7 fL Normal 81-99 [facility] Comment on above: Performed By: #### L 100.0100, L500.2500 ####[facility] [address] [place], [address] Monocytes/100 WBC (Bld) 13.3 % High 0-10 [facility] Comment on above: Performed By: #### L 100.0100, L500.2500 ####[facility] [address] [place], [address] Neutrophils/100 WBC (Bld) 61.7 % Normal 47-70 [facility] Comment on above: Performed By: #### L 100.0100, L500.2500 ####[facility] [address] [place], [address] Nucleated RBC (Bld) [#/Vol] 0 10*3/uL Normal 0-5 [facility] Comment on above: Performed By: #### L 100.0100, L500.2500 ####[facility] [address] [place], [address] Platelet mean volume (Bld) [Entitic vol] 9.1 fL Normal 6.2-12.0 [facility] Comment on above: Performed By: #### L 100.0100, L500.2500 ####[facility] [address] [place], [address] Platelets (Bld) [#/Vol] 316 10*3/uL Normal 150-450 [facility] Comment on above: Performed By: #### L 100.0100, L500.2500 ####[facility] [address] [place], [address] RBC (Bld) [#/Vol] 3.99 10*6/uL Low 4.2-5.4 [facility] Comment on above: Performed By: #### L 100.0100, L500.2500 ####[facility] [address] [place], [address] RDW SD 52.5 fl High 35.1-43.9 [facility] Comment on above: Performed By: #### L 100.0100, L500.2500 ####[facility] [address] [place], [address] WBC (Bld) [#/Vol] 7.4 10*3/uL Normal 4.4-11.0 [facility] Comment on above: Performed By: #### L 100.0100, L500.2500 ####[facility] [address] [place], [address] Basic Metabolic Profile (BMP )on 02-16-2025 BUN/CRE 23.8 RATIO High 10-20 [facility] Comment on above: Performed By: #### L 500.2500, L100.0100 ####[facility] [address] [place], [address] Calcium [Mass/Vol] 9.4 mg/dL Normal 7.6-11.0 [facility] Comment on above: Performed By: #### L 500.2500, L100.0100 ####[facility] [address] [place], [address] Chloride [Moles/Vol] 104 mmol/L Normal 98-108 [facility] Comment on above: Performed By: #### L 500.2500, L100.0100 ####[facility] [address] [place], [address] CO2 [Moles/Vol] 22.7 mmol/L Normal 21.0-32.0 [facility] Comment on above: Performed By: #### L 500.2500, L100.0100 ####[facility] [address] [place], [address] Creatinine [Mass/Vol] 0.88 mg/dL Normal 0.70-1.20 [facility] Comment on above: Performed By: #### L 500.2500, L100.0100 ####[facility] [address] [place], [address] ECRCL 41.40 ml/min Low 50-250 [facility] Comment on above: Performed By: #### L 500.2500, L100.0100 ####[facility] [address] [place], [address] GAP 13 Normal 5-15 [facility] Comment on above: Performed By: #### L 500.2500, L100.0100 ####[facility] [address] [place], [address] GFR/1.73 sq M.predicted among non-blacks MDRD (S/P/Bld) [Vol rate/Area] 65 mL/min/{1.73_m2} Normal >60 [facility] Comment on above: Result Comment: mL/m in/1.73m2 CKD-EPI Creatinine Equation (2020) Performed By: #### L 500.2500, L100.0100 ####[facility] [address] [place], [address] Glucose [Mass/Vol] 134 mg/dL High 70-99 [facility] Comment on above: Performed By: #### L 500.2500, L100.0100 ####[facility] [address] [place], [address] Potassium [Moles/Vol] 3.7 mmol/L Normal 3.3-5.1 [facility] Comment on above: Performed By: #### L 500.2500, L100.0100 ####[facility] [address] [place], [address] Sodium [Moles/Vol] 139 mmol/L Normal 133-145 [facility] Comment on above: Performed By: #### L 500.2500, L100.0100 ####[facility] [address] [place], [address] Urea nitrogen [Mass/Vol] 21 mg/dL High 4-19 [facility] Comment on above: Performed By: #### L 500.2500, L100.0100 ####[facility] [address] [place], [address] CBC W/Diff, Automatedon 09-0 Absolute Lymph 1.16 X10 3/uL Normal 0.83-4.51 [facility] Comment on above: Performed By: #### L 500.2500, L100.0100 ####[facility] [address] [place], [address] Absolute Neut 5.3 X10 3/uL Normal 2.0-7.7 [facility] Comment on above: Performed By: #### L 500.2500, L100.0100 ####[facility] [address] [place], [address] Basophils/100 WBC (Bld) 0.3 % Normal 0-1 [facility] Comment on above: Performed By: #### L 500.2500, L100.0100 ####[facility] [address] [place], [address] Eosinophils/100 WBC (Bld) 2.3 % Normal 0-5 [facility] Comment on above: Performed By: #### L 500.2500, L100.0100 ####[facility] [address] [place], [address] Erythrocyte distribution width (RBC) [Ratio] 16.4 % High 11.6-14.6 [facility] Comment on above: Performed By: #### L 500.2500, L100.0100 ####[facility] [address] [place], [address] Hematocrit (Bld) [Volume fraction] 38.3 % Normal 37-47 [facility] Comment on above: Performed By: #### L 500.2500, L100.0100 ####[facility] [address] [place], [address] Hemoglobin (Bld) [Mass/Vol] 12.0 g/dL Normal 12.0-15.0 [facility] Comment on above: Performed By: #### L 500.2500, L100.0100 ####[facility] [address] [place], [address] IG% 0.600 Normal 0.0-0.9 [facility] Comment on above: Result Comment: IG% - Immature Granulocytes (promyelocytes, myelocytes andmetamyelocytes) > 1% indicates that a LEFT SHIFT is Present. Performed By: #### L 500.2500, L100.0100 ####[facility] [address] [place], [address] Lymphocytes/100 WBC (Bld) 14.9 % Low 19-41 [facility] Comment on above: Performed By: #### L 500.2500, L100.0100 ####[facility] [address] [place], [address] MCH (RBC) [Entitic mass] 28.1 pg Normal 27.0-32.0 [facility] Comment on above: Performed By: #### L 500.2500, L100.0100 ####[facility] [address] [place], [address] MCHC (RBC) [Mass/Vol] 31.3 g/dL Low 32-36 [facility] Comment on above: Performed By: #### L 500.2500, L100.0100 ####[facility] [address] [place], [address] MCV (RBC) [Entitic vol] 89.7 fL Normal 81-99 [facility] Comment on above: Performed By: #### L 500.2500, L100.0100 ####[facility] [address] [place], [address] Monocytes/100 WBC (Bld) 14.1 % High 0-10 [facility] Comment on above: Performed By: #### L 500.2500, L100.0100 ####[facility] [address] [place], [address] Neutrophils/100 WBC (Bld) 67.8 % Normal 47-70 [facility] Comment on above: Performed By: #### L 500.2500, L100.0100 ####[facility] [address] [place], [address] Nucleated RBC (Bld) [#/Vol] 0 10*3/uL Normal 0-5 [facility] Comment on above: Performed By: #### L 500.2500, L100.0100 ####[facility] [address] [place], [address] Platelet mean volume (Bld) [Entitic vol] 8.9 fL Normal 6.2-12.0 [facility] Comment on above: Performed By: #### L 500.2500, L100.0100 ####[facility] [address] [place], [address] Platelets (Bld) [#/Vol] 328 10*3/uL Normal 150-450 [facility] Comment on above: Performed By: #### L 500.2500, L100.0100 ####[facility] [address] [place], [address] RBC (Bld) [#/Vol] 4.27 10*6/uL Normal 4.2-5.4 [facility] Comment on above: Performed By: #### L 500.2500, L100.0100 ####[facility] [address] [place], [address] RDW SD 53.4 fl High 35.1-43.9 [facility] Comment on above: Performed By: #### L 500.2500, L100.0100 ####[facility] [address] [place], [address] WBC (Bld) [#/Vol] 7.8 10*3/uL Normal 4.4-11.0 [facility] Comment on above: Performed By: #### L 500.2500, L100.0100 ####[facility] [address] [place], [address] Basic Metabolic Profile (BMP )on 02-15-2025 BUN/CRE 17.5 RATIO Normal 10-20 [facility] Comment on above: Performed By: #### L 500.2500, L100.0100 ####[facility] [address] [place], [address] Calcium [Mass/Vol] 8.9 mg/dL Normal 7.6-11.0 [facility] Comment on above: Performed By: #### L 500.2500, L100.0100 ####[facility] [address] [place], [address] Chloride [Moles/Vol] 103 mmol/L Normal 98-108 [facility] Comment on above: Performed By: #### L 500.2500, L100.0100 ####[facility] [address] [place], [address] CO2 [Moles/Vol] 21.1 mmol/L Normal 21.0-32.0 [facility] Comment on above: Performed By: #### L 500.2500, L100.0100 ####[facility] [address] [place], [address] Creatinine [Mass/Vol] 0.94 mg/dL Normal 0.70-1.20 [facility] Comment on above: Performed By: #### L 500.2500, L100.0100 ####[facility] [address] [place], [address] ECRCL 38.76 ml/min Low 50-250 [facility] Comment on above: Performed By: #### L 500.2500, L100.0100 ####[facility] [address] [place], [address] GAP 13 Normal 5-15 [facility] Comment on above: Performed By: #### L 500.2500, L100.0100 ####[facility] [address] [place], [address] GFR/1.73 sq M.predicted among non-blacks MDRD (S/P/Bld) [Vol rate/Area] 60 mL/min/{1.73_m2} Normal >60 [facility] Comment on above: Result Comment: mL/m in/1.73m2 CKD-EPI Creatinine Equation (2020) Performed By: #### L 500.2500, L100.0100 ####[facility] [address] [place], [address] Glucose [Mass/Vol] 82 mg/dL Normal 70-99 [facility] Comment on above: Performed By: #### L 500.2500, L100.0100 ####[facility] [address] [place], [address] Potassium [Moles/Vol] 3.6 mmol/L Normal 3.3-5.1 [facility] Comment on above: Performed By: #### L 500.2500, L100.0100 ####[facility] [address] [place], [address] Sodium [Moles/Vol] 137 mmol/L Normal 133-145 [facility] Comment on above: Performed By: #### L 500.2500, L100.0100 ####[facility] [address] [place], [address] Urea nitrogen [Mass/Vol] 17 mg/dL Normal 4-19 [facility] Comment on above: Performed By: #### L 500.2500, L100.0100 ####[facility] [address] [place], [address] CBC W/Diff, Automatedon 09-0 -2024 Absolute Lymph 1.30 X10 3/uL Normal 0.83-4.51 [facility] Comment on above: Performed By: #### L 500.2500, L100.0100 ####[facility] [address] [place], [address] Absolute Neut 5.0 X10 3/uL Normal 2.0-7.7 [facility] Comment on above: Performed By: #### L 500.2500, L100.0100 ####[facility] [address] [place], [address] Basophils/100 WBC (Bld) 0.4 % Normal 0-1 [facility] Comment on above: Performed By: #### L 500.2500, L100.0100 ####[facility] [address] [place], [address] Eosinophils/100 WBC (Bld) 1.8 % Normal 0-5 [facility] Comment on above: Performed By: #### L 500.2500, L100.0100 ####[facility] [address] [place], [address] Erythrocyte distribution width (RBC) [Ratio] 16.4 % High 11.6-14.6 [facility] Comment on above: Performed By: #### L 500.2500, L100.0100 ####[facility] [address] [place], [address] Hematocrit (Bld) [Volume fraction] 36.3 % Low 37-47 [facility] Comment on above: Performed By: #### L 500.2500, L100.0100 ####[facility] [address] [place], [address] Hemoglobin (Bld) [Mass/Vol] 11.5 g/dL Low 12.0-15.0 [facility] Comment on above: Performed By: #### L 500.2500, L100.0100 ####[facility] [address] [place], [address] IG% 0.500 Normal 0.0-0.9 [facility] Comment on above: Result Comment: IG% - Immature Granulocytes (promyelocytes, myelocytes andmetamyelocytes) > 1% indicates that a LEFT SHIFT is Present. Performed By: #### L 500.2500, L100.0100 ####[facility] [address] [place], [address] Lymphocytes/100 WBC (Bld) 16.8 % Low 19-41 [facility] Comment on above: Performed By: #### L 500.2500, L100.0100 ####[facility] [address] [place], [address] MCH (RBC) [Entitic mass] 28.2 pg Normal 27.0-32.0 [facility] Comment on above: Performed By: #### L 500.2500, L100.0100 ####[facility] [address] [place], [address] MCHC (RBC) [Mass/Vol] 31.7 g/dL Low 32-36 [facility] Comment on above: Performed By: #### L 500.2500, L100.0100 ####[facility] [address] [place], [address] MCV (RBC) [Entitic vol] 89.0 fL Normal 81-99 [facility] Comment on above: Performed By: #### L 500.2500, L100.0100 ####[facility] [address] [place], [address] Monocytes/100 WBC (Bld) 16.6 % High 0-10 [facility] Comment on above: Performed By: #### L 500.2500, L100.0100 ####[facility] [address] [place], [address] Neutrophils/100 WBC (Bld) 63.9 % Normal 47-70 [facility] Comment on above: Performed By: #### L 500.2500, L100.0100 ####[facility] [address] [place], [address] Nucleated RBC (Bld) [#/Vol] 0 10*3/uL Normal 0-5 [facility] Comment on above: Performed By: #### L 500.2500, L100.0100 ####[facility] [address] [place], [address] Platelet mean volume (Bld) [Entitic vol] 8.6 fL Normal 6.2-12.0 [facility] Comment on above: Performed By: #### L 500.2500, L100.0100 ####[facility] [address] [place], [address] Platelets (Bld) [#/Vol] 279 10*3/uL Normal 150-450 [facility] Comment on above: Performed By: #### L 500.2500, L100.0100 ####[facility] [address] [place], [address] RBC (Bld) [#/Vol] 4.08 10*6/uL Low 4.2-5.4 [facility] Comment on above: Performed By: #### L 500.2500, L100.0100 ####[facility] [address] [place], [address] RDW SD 53.1 fl High 35.1-43.9 [facility] Comment on above: Performed By: #### L 500.2500, L100.0100 ####[facility] [address] [place], [address] WBC (Bld) [#/Vol] 7.8 10*3/uL Normal 4.4-11.0 [facility] Comment on above: Performed By: #### L 500.2500, L100.0100 ####[facility] [address] [place], [address] Electrocardiogram reportOrde red By: Yunior Desai on 02-15-2025 EKG study [facility] Work Phone: 12 Lead EKGon 02-14-2025 12 Lead EKG Normal [facility] Absolute lymphocyte countOrd ered By: Arya Gannon on 02-14-2025 Lymphocytes Auto (Unsp spec) [#/Vol] 1.18 10*3/uL 0.83-4.51 [facility] Activated partial thrombopla stin time (aPTT) in platelet poor plasma by coagulation aOrdered By: Arya Gannon on 02-14-2025 aPTT Coag (PPP) [Time] 29.6 s 24.1-36.2 [facility] Anion gap in Serum or Plasma Ordered By: Aryamisha Gannon on 02-14-2025 Anion gap [Moles/Vol] 12 mmol/L 5-15 [facility] Automated lymphocyte count a s percentage of total leukocytesOrdered By: Spearfish Teressa on 02-14-2025 Lymphocytes/100 WBC Auto (Unsp spec) 11.8 % Low 19-41 [facility] BUN/creatinine ratioOrdered By: Spearfish Teressa on 02-14-2025 Urea nitrogen/Creatinine [Mass ratio] 19.4 mg/mg 10-20 [facility] Basophil percentageOrdered B y: Arya Gannon on 02-14-2025 Basophils/100 WBC (Bld) 0.4 % 0-1 [facility] Bilirubin Test strip Ql (U)O rdered By: Spearfish Teressa on 02-14-2025 Bilirubin Ql (U) Negative Negative [facility] Bilirubin, totalOrdered By: Aryamisha Gannon on 02-14-2025 Bilirubin [Mass/Vol] 0.56 mg/dL 0.00-1.30 [facility] CBC W/Diff, Automatedon Absolute Lymph 1.18 X10 3/uL Normal 0.83-4.51 [facility] Comment on above: Performed By: #### L 503.6005, L300.4310, L100.0100, L300.3900, L500.4050, L501.2450 ####[facility] [address] [place], [address] Absolute Neut 7.4 X10 3/uL Normal 2.0-7.7 [facility] Comment on above: Performed By: #### L 503.6005, L300.4310, L100.0100, L300.3900, L500.4050, L501.2450 ####[facility] [address] [place], [address] Basophils/100 WBC (Bld) 0.4 % Normal 0-1 [facility] Comment on above: Performed By: #### L 503.6005, L300.4310, L100.0100, L300.3900, L500.4050, L501.2450 ####[facility] [address] [place], [address] Eosinophils/100 WBC (Bld) 0.8 % Normal 0-5 [facility] Comment on above: Performed By: #### L 503.6005, L300.4310, L100.0100, L300.3900, L500.4050, L501.2450 ####[facility] [address] [place], [address] Erythrocyte distribution width (RBC) [Ratio] 16.3 % High 11.6-14.6 [facility] Comment on above: Performed By: #### L 503.6005, L300.4310, L100.0100, L300.3900, L500.4050, L501.2450 ####[facility] [address] [place], [address] Hematocrit (Bld) [Volume fraction] 35.8 % Low 37-47 [facility] Comment on above: Performed By: #### L 503.6005, L300.4310, L100.0100, L300.3900, L500.4050, L501.2450 ####[facility] [address] [place], [address] Hemoglobin (Bld) [Mass/Vol] 11.5 g/dL Low 12.0-15.0 [facility] Comment on above: Performed By: #### L 503.6005, L300.4310, L100.0100, L300.3900, L500.4050, L501.2450 ####[facility] [address] [place], [address] IG% 0.700 Normal 0.0-0.9 [facility] Comment on above: Result Comment: IG% - Immature Granulocytes (promyelocytes, myelocytes andmetamyelocytes) > 1% indicates that a LEFT SHIFT is Present. Performed By: #### L 503.6005, L300.4310, L100.0100, L300.3900, L500.4050, L501.2450 ####[facility] [address] [place], [address] Lymphocytes/100 WBC (Bld) 11.8 % Low 19-41 [facility] Comment on above: Performed By: #### L 503.6005, L300.4310, L100.0100, L300.3900, L500.4050, L501.2450 ####[facility] [address] [place], [address] MCH (RBC) [Entitic mass] 28.5 pg Normal 27.0-32.0 [facility] Comment on above: Performed By: #### L 503.6005, L300.4310, L100.0100, L300.3900, L500.4050, L501.2450 ####[facility] [address] [place], [address] MCHC (RBC) [Mass/Vol] 32.1 g/dL Normal 32-36 [facility] Comment on above: Performed By: #### L 503.6005, L300.4310, L100.0100, L300.3900, L500.4050, L501.2450 ####[facility] [address] [place], [address] MCV (RBC) [Entitic vol] 88.6 fL Normal 81-99 [facility] Comment on above: Performed By: #### L 503.6005, L300.4310, L100.0100, L300.3900, L500.4050, L501.2450 ####[facility] [address] [place], [address] Monocytes/100 WBC (Bld) 12.2 % High 0-10 [facility] Comment on above: Performed By: #### L 503.6005, L300.4310, L100.0100, L300.3900, L500.4050, L501.2450 ####[facility] [address] [place], [address] Neutrophils/100 WBC (Bld) 74.1 % High 47-70 [facility] Comment on above: Performed By: #### L 503.6005, L300.4310, L100.0100, L300.3900, L500.4050, L501.2450 ####[facility] [address] [place], [address] Nucleated RBC (Bld) [#/Vol] 0 10*3/uL Normal 0-5 [facility] Comment on above: Performed By: #### L 503.6005, L300.4310, L100.0100, L300.3900, L500.4050, L501.2450 ####[facility] [address] [place], [address] Platelet mean volume (Bld) [Entitic vol] 8.5 fL Normal 6.2-12.0 [facility] Comment on above: Performed By: #### L 503.6005, L300.4310, L100.0100, L300.3900, L500.4050, L501.2450 ####[facility] [address] [place], [address] Platelets (Bld) [#/Vol] 328 10*3/uL Normal 150-450 [facility] Comment on above: Performed By: #### L 503.6005, L300.4310, L100.0100, L300.3900, L500.4050, L501.2450 ####[facility] [address] [place], [address] RBC (Bld) [#/Vol] 4.04 10*6/uL Low 4.2-5.4 [facility] Comment on above: Performed By: #### L 503.6005, L300.4310, L100.0100, L300.3900, L500.4050, L501.2450 ####[facility] [address] [place], [address] RDW SD 52.9 fl High 35.1-43.9 [facility] Comment on above: Performed By: #### L 503.6005, L300.4310, L100.0100, L300.3900, L500.4050, L501.2450 ####[facility] [address] [place], [address] WBC (Bld) [#/Vol] 10.0 10*3/uL Normal 4.4-11.0 [facility] Comment on above: Performed By: #### L 503.6005, L300.4310, L100.0100, L300.3900, L500.4050, L501.2450 ####[facility] [address] [place], [address] Carbon dioxide, total [Moles /volume] in Central venous bloodOrdered By: Arya Gannon on 02-14-2025 CO2 [Moles/Vol] 23.7 mmol/L 21.0-32.0 [facility] Chest PA and Lateralon 02-14 Chest PA and Lateral Normal [facility] Chloride assayOrdered By: Martín Gannon on 02-14-2025 Chloride [Moles/Vol] 100 mmol/L 98-108 [facility] Comprehensive Metabolic Prof ilon 02-14-2025 Albumin [Mass/Vol] 3.7 g/dL Normal 3.4-4.8 [facility] Comment on above: Performed By: #### L 503.6005, L300.4310, L100.0100, L300.3900, L500.4050, L501.2450 ####[facility] [address] [place], [address] Albumin/Globulin [Mass ratio] 1.2 {ratio} Normal 0.9-2.4 [facility] Comment on above: Performed By: #### L 503.6005, L300.4310, L100.0100, L300.3900, L500.4050, L501.2450 ####[facility] [address] [place], [address] ALK PHOS 150 U/L High 35-104 [facility] Comment on above: Performed By: #### L 503.6005, L300.4310, L100.0100, L300.3900, L500.4050, L501.2450 ####[facility] [address] [place], [address] ALT [Catalytic activity/Vol] 14 U/L Normal <=34 [facility] Comment on above: Performed By: #### L 503.6005, L300.4310, L100.0100, L300.3900, L500.4050, L501.2450 ####[facility] [address] [place], [address] AST [Catalytic activity/Vol] 25 U/L Normal <=31 [facility] Comment on above: Performed By: #### L 503.6005, L300.4310, L100.0100, L300.3900, L500.4050, L501.2450 ####[facility] [address] [place], [address] Bilirubin [Mass/Vol] 0.56 mg/dL Normal 0.00-1.30 [facility] Comment on above: Performed By: #### L 503.6005, L300.4310, L100.0100, L300.3900, L500.4050, L501.2450 ####[facility] [address] [place], [address] BUN/CRE 19.4 RATIO Normal 10-20 [facility] Comment on above: Performed By: #### L 503.6005, L300.4310, L100.0100, L300.3900, L500.4050, L501.2450 ####[facility] [address] [place], [address] Calcium [Mass/Vol] 8.9 mg/dL Normal 7.6-11.0 [facility] Comment on above: Performed By: #### L 503.6005, L300.4310, L100.0100, L300.3900, L500.4050, L501.2450 ####[facility] [address] [place], [address] Chloride [Moles/Vol] 100 mmol/L Normal 98-108 [facility] Comment on above: Performed By: #### L 503.6005, L300.4310, L100.0100, L300.3900, L500.4050, L501.2450 ####[facility] [address] [place], [address] CO2 [Moles/Vol] 23.7 mmol/L Normal 21.0-32.0 [facility] Comment on above: Performed By: #### L 503.6005, L300.4310, L100.0100, L300.3900, L500.4050, L501.2450 ####[facility] [address] [place], [address] Creatinine [Mass/Vol] 0.94 mg/dL Normal 0.70-1.20 [facility] Comment on above: Performed By: #### L 503.6005, L300.4310, L100.0100, L300.3900, L500.4050, L501.2450 ####[facility] [address] [place], [address] ECRCL 40.09 ml/min Low 50-250 [facility] Comment on above: Performed By: #### L 503.6005, L300.4310, L100.0100, L300.3900, L500.4050, L501.2450 ####[facility] [address] [place], [address] GAP 12 Normal 5-15 [facility] Comment on above: Performed By: #### L 503.6005, L300.4310, L100.0100, L300.3900, L500.4050, L501.2450 ####[facility] [address] [place], [address] GFR/1.73 sq M.predicted among non-blacks MDRD (S/P/Bld) [Vol rate/Area] 60 mL/min/{1.73_m2} Normal >60 [facility] Comment on above: Result Comment: mL/m in/1.73m2 CKD-EPI Creatinine Equation (2020) Performed By: #### L 503.6005, L300.4310, L100.0100, L300.3900, L500.4050, L501.2450 ####[facility] [address] [place], [address] Globulin (S) [Mass/Vol] 3.1 g/dL Normal 2.2-4.2 [facility] Comment on above: Performed By: #### L 503.6005, L300.4310, L100.0100, L300.3900, L500.4050, L501.2450 ####[facility] [address] [place], [address] Glucose [Mass/Vol] 92 mg/dL Normal 70-99 [facility] Comment on above: Performed By: #### L 503.6005, L300.4310, L100.0100, L300.3900, L500.4050, L501.2450 ####[facility] [address] [place], [address] Potassium [Moles/Vol] 3.7 mmol/L Normal 3.3-5.1 [facility] Comment on above: Performed By: #### L 503.6005, L300.4310, L100.0100, L300.3900, L500.4050, L501.2450 ####[facility] [address] [place], [address] Sodium [Moles/Vol] 135 mmol/L Normal 133-145 [facility] Comment on above: Performed By: #### L 503.6005, L300.4310, L100.0100, L300.3900, L500.4050, L501.2450 ####[facility] [address] [place], [address] T PROT 6.9 g/dL Normal 5.9-8.4 [facility] Comment on above: Performed By: #### L 503.6005, L300.4310, L100.0100, L300.3900, L500.4050, L501.2450 ####[facility] [address] [place], [address] Urea nitrogen [Mass/Vol] 18 mg/dL Normal 4-19 [facility] Comment on above: Performed By: #### L 503.6005, L300.4310, L100.0100, L300.3900, L500.4050, L501.7640 ####[facility] [address] [place], [address] Emergency Department Summary on 02-14-2025 Emergency Department Summary Normal [facility] Eosinophil percentageOrdered By: Arya Gannon on 02-14-2025 Eosinophils/100 WBC (Bld) 0.8 % 0-5 [facility] Erythrocyte distribution wid th ratioOrdered By: [facility] on 02-14-2025 Erythrocyte distribution width (RBC) [Ratio] 16.3 % High 11.6-14.6 [facility] Erythrocyte distribution wid th standard deviationOrdered By: [facility] Stanley on 02-14-2025 Erythrocyte distribution width (RBC) [Ratio] 52.9 fl High 35.1-43.9 [facility] Glomerular filtration rate ( GFR) estimation/1.73 sq m using serum, plasma, or whole bOrdered By: [facility] VinelandKarla on 02-14-2025 GFR/1.73 sq M.predicted among non-blacks MDRD (S/P/Bld) [Vol rate/Area] 60 mL/min/{1.73_m2} >60 [facility] H AND P Exam - [facility] 02-14-2025 H&P Exam - Hospitalist Normal [facility] Hematocrit Auto (Bld) [Volum e fraction]Ordered By: Arya Gannon on 02-14-2025 Hematocrit (Bld) [Volume fraction] 35.8 % Low 37-47 [facility] Hemoglobin measurementOrdere d By: Arya Teressa on 02-14-2025 Hemoglobin (Bld) [Mass/Vol] 11.5 g/dL Low 12.0-15.0 [facility] Immature granulocytes/100 WB C Auto (Bld)Ordered By: Arya aGnnon on 02-14-2025 Immature granulocytes/100 WBC (Bld) 0.700 % 0.0-0.9 [facility] Influenza virus A and B and SARS-CoV-2 (COVID-19) and Respiratory syncytial virus RNAOrdered By: Arya Ureñamaria guadalupelalitaLizeth on 02-14-2025 SARS-CoV-2 (COVID-19) RNA ZAID+probe Ql (Unsp spec) [facility] Ketones Test strip Ql (U)Ord ered By: Arya UreñaKarla on 02-14-2025 Ketones Ql (U) 5 mg/dl High Negative [facility] L501.4021on 02-14-2025 Trop T High Sen 35 ng/L High <=14 [facility] Comment on above: Performed By: #### L 501.4021 ####[facility] [address] [place], [place], [id number] Lactic Acidon 02-14-2025 Lactate [Moles/Vol] 1.3 mmol/L Normal 0.0-2.0 [facility] Comment on above: Order Comment: Y Performed By: #### L 503.6005, L300.4310, L100.0100, L300.3900, L500.4050, L501.2450 ####[facility] [address] [place], [place], [id number] Legionella Antigen Urineon 0 02-14-2025 LEGU Normal [facility] Comment on above: Performed By: #### M 300.4500, M300.4600 ####[facility] [address] [place], [place], [id number] Lipaseon 02-14-2025 Lipase [Catalytic activity/Vol] 40 U/L Normal 13-75 [facility] Comment on above: Result Comment: Plekali leigh note:LIPASE revised reference range effective 22.New Lipase methodology. Expected to produce lower valuesthan the previous assay method.NEW Reference Range: 13 - 75 U/L Performed By: #### L 503.6005, L300.4310, L100.0100, L300.3900, L500.4050, L501.2450 ####[facility] [address] [place], [place], [address] M100.678on 02-14-2025 M100.678 Pending SARS-CoV-2 (COVID 19) Negative INFLUENZA A Negative INFLUENZA B Negative RSV PCR Negative Normal [facility] Comment on above: Performed By: #### M 100.678, L400.0001 ####[facility] [address] [facility] [place], [address] MCV (mean corpuscular volume ) determinationOrdered By: Arya Teressa on 02-14-2025 MCV (RBC) [Entitic vol] 88.6 fL 81-99 [facility] Mean corpuscular hemoglobin (MCH) determinationOrdered By: Spearfish Teressa on 02-14-2025 MCH (RBC) [Entitic mass] 28.5 pg 27.0-32.0 [facility] Monocyte percentageOrdered B y: Arya Gannon on 02-14-2025 Monocytes/100 WBC (Bld) 12.2 % High 0-10 [facility] Mucus LM Ql (Urine sed)Order ed By: Spearfish Teressa on 02-14-2025 Mucus Ql (Urine sed) 0 SEEN /hpf [facility] Neutrophil percentageOrdered By: [facility] Vinelandmaria guadalupeGopiLizeth on 02-14-2025 Neutrophils/100 WBC (Bld) 74.1 % High 47-70 [facility] Nitrite Test strip Ql (U)Ord ered By: Arya Gannon on 02-14-2025 Nitrite Ql (U) Negative Negative [facility] No Panel InformationOrdered By: Spearfish Teressa on 02-14-2025 25 U/L <32 [facility] Partial Thromboplast Timeon 02-14-2025 aPTT Coag (Bld) [Time] 29.6 s Normal 24.1-36.2 [facility] Comment on above: Performed By: #### L 503.6005, L300.4310, L100.0100, L300.3900, L500.4050, L501.2450 ####[facility] [address] [place], [place], [phone] Platelet countOrdered By: Martín Gannon on 02-14-2025 Platelets (Bld) [#/Vol] 328 10*3/uL 150-450 [facility] Potassium measurement (mass/ volume)Ordered By: Arya Gannon on 02-14-2025 Potassium (Unsp spec) [Mass/Vol] 3.7 mmol/L 3.3-5.1 [facility] Protein Test strip Ql (U)Ord ered By: Arya Gannon on 02-14-2025 Protein Ql (U) Negative Negative [facility] Prothrombin Time w/INRon INR Coag (PPP) [Relative time] 0.9 {INR} Normal [facility] Comment on above: Performed By: #### L 503.6005, L300.4310, L100.0100, L300.3900, L500.4050, L501.2450 ####[facility] [address] [place], [place], [phone] PT Coag (PPP) [Time] 12.7 s Normal 11.7-14.9 [facility] Comment on above: Performed By: #### L 503.6005, L300.4310, L100.0100, L300.3900, L500.4050, L501.2450 ####[facility] [address] [place], [address] Prothrombin timeOrdered By: Arya Gannon on 02-14-2025 PT Coag (PPP) [Time] 12.7 s 11.7-14.9 [facility] RBC Auto (Bld) [#/Vol]Ordere d By: Arya Gannon on 02-14-2025 RBC (Bld) [#/Vol] 4.04 10*6/uL Low 4.2-5.4 [facility] Serum creatinine measurement (mass/volume)Ordered By: Arya Gannon on 02-14-2025 Creatinine [Mass/Vol] 0.94 mg/dL 0.70-1.20 [facility] Serum globulin measurementOr dered By: Arya Gannon on 02-14-2025 Globulin (S) [Mass/Vol] 3.1 g/dL 2.2-4.2 [facility] Serum glucose measurement (m ass/volume)Ordered By: Arya Gannon on 02-14-2025 Glucose [Mass/Vol] 92 mg/dL 70-99 [facility] Serum or plasma alanine carpio otransferase (ALT) measurementOrdered By: Arya Gannon on 02-14-2025 ALT [Catalytic activity/Vol] 14 U/L <35 [facility] Serum or plasma albumin candice urement (mass/volume)Ordered By: Arya Stanley on 02-14-2025 Albumin [Mass/Vol] 3.7 g/dL 3.4-4.8 [facility] Serum or plasma albumin/glob ulin mass ratioOrdered By: Arya Gannon on 02-14-2025 Albumin/Globulin [Mass ratio] 1.2 {ratio} 0.9-2.4 [facility] Serum or plasma alkaline anthony sphatase measurementOrdered By: Arya Gannon on 02-14-2025 ALP [Catalytic activity/Vol] 150 U/L High 35-104 [facility] Serum or plasma calcium candice urement (mass/volume)Ordered By: Arya Stanley on 02-14-2025 Calcium [Mass/Vol] 8.9 mg/dL 7.6-11.0 [facility] Serum or plasma urea nitroge n measurement (mass/volume)Ordered By: Arya Gannon on 02-14-2025 Urea nitrogen [Mass/Vol] 18 mg/dL 4-19 [facility] Sodium levelOrdered By: Luis Angel Gannon on 02-14-2025 Sodium [Moles/Vol] 135 mmol/L 133-145 [facility] Squamous epithelial cells de tection in urine sediment by light microscopyOrdered By: Arya Gannon on 02-14-2025 Epithelial cells.squamous LM Ql (Urine sed) 0 SEEN /hpf 5-10 [facility] Strep pneumoniae Antig(UR,CS F)on 02-14-2025 STPAG Normal [facility] Comment on above: Performed By: #### M 300.4500, M300.4600 ####[facility] [address] [place], [address] Total proteinOrdered By: Ritchie TangLizeth on 02-14-2025 Protein [Mass/Vol] 6.9 g/dL 5.9-8.4 [facility] Troponin T HS 2 HRon 025 Trop T High Sen 32 ng/L High <=14 [facility] Comment on above: Performed By: #### L 499.0042 ####[facility] [address] [place], [address] Troponin T.cardiac [Mass/vol ume] in Serum or Plasma by High sensitivity methodOrdered By: Arya TangLizeth on 02-14-2025 Troponin T.cardiac High sensitivity method [Mass/Vol] 32 ng/L High <14 [facility] Troponin T.cardiac High sensitivity method [Mass/Vol] 35 ng/L High <14 [facility] Urinalysis, Completeon 02-14 WBC 0-5 SEEN Normal 0-5 [facility] Comment on above: Order Comment: CLEAN CATCH Performed By: #### M 100.678, L400.0001 ####[facility] [address] [place], [address] BACTERIA 0 SEEN Normal None Seen [facility] Comment on above: Order Comment: CLEAN CATCH Performed By: #### M 100.678, L400.0001 ####[facility] [address] [place], [address] EPI,SQUAMOUS 0 SEEN Normal 5-10 [facility] Comment on above: Order Comment: CLEAN CATCH Performed By: #### M 100.678, L400.0001 ####[facility] [address] [place], [address] Mucus Ql (Urine sed) 0 SEEN Normal [facility] Comment on above: Order Comment: CLEAN CATCH Performed By: #### M 100.678, L400.0001 ####[facility] [address] [place], [address] RBC 0 SEEN Normal 0-5 [facility] Comment on above: Order Comment: CLEAN CATCH Performed By: #### M 100.678, L400.0001 ####[facility] [address] [place], [address] Urine Legionella pneumophila antigen detectionOrdered By: Liudmila Morin on 02-14-2025 L. pneumophila Ag Ql (U) [facility] Urine clarityOrdered By: Ritchie Gannon on 02-14-2025 Clarity (U) Clear Clear [facility] Urine color determinationOrd ered By: Arya Gannon on 02-14-2025 Color (U) Yellow Yellow [facility] Urine glucose detectionOrder ed By: Arya Gannon on 02-14-2025 Glucose Ql (U) Normal mg/dl Normal [facility] Urine leukocyte esterase det ection by dipstickOrdered By: Arya Gannon on 02-14-2025 Leukocyte esterase Test strip Ql (U) 25 /ul High Negative [facility] Urine pHOrdered By: Arya Acosta on 02-14-2025 pH (U) 6.0 [pH] 5.0 - 8.0 [facility] Urine sediment bacteria coun t by microscopy (number/high power field)Ordered By: Arya Gannon on 02-14-2025 Bacteria LM.HPF (Urine sed) [#/Area] 0 /[HPF] None Seen [facility] Urine specific gravity measu rementOrdered By: Arya Gannon on 02-14-2025 Specific gravity (U) [Rel density] 1.015 1.002-1.03 0 [facility] Urine urobilinogen measureme ntOrdered By: Arya Gannon on 02-14-2025 Urobilinogen Ql (U) Normal mg/dl Normal [facility] White blood cell (WBC) count Ordered By: Arya Gannon on 02-14-2025 WBC (Bld) [#/Vol] 10.0 10*3/uL 4.4-11.0 [facility] White blood cell countOrdere d By: Arya Gannon on 02-14-2025 White blood cell count 0-5 SEEN /hpf 0-5 [facility] OPERATIVE PROCEDURESon 02-02 OPERATIVE PROCEDURES [facility] OPERATIVE REPORT NAME ACCOUNT SEX AGE ADMIT DISCHARGE PT MED. 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 ANESTHESIOLOGIST: ANESTHETIC: Local. PRE-PROCEDURE DIAGNOSIS: [...] Marcos White DO 01/20/25 12:08 JOB #: [id number] Transcribed By: tim 01/20/25 13:35 Electronically signed by: E-SIGN: MARCOS WHITE 02/02/25 07:18 Page 2 of 2 SAPNA BULLARD Operative Report Normal [facility] Absolute lymphocyte countOrd ered By: Genevieve Wu on 01-30-2025 Lymphocytes Auto (Unsp spec) [#/Vol] 1.91 10*3/uL 0.83-4.51 [facility] Anion gap in Serum or Plasma Ordered By: Genevieve Wu on 01-30-2025 Anion gap [Moles/Vol] 11 mmol/L 5-15 [facility] Automated lymphocyte count a s percentage of total leukocytesOrdered By: Genevieve Wu on 01-30-2025 Lymphocytes/100 WBC Auto (Unsp spec) 20.1 % 19-41 [facility] BUN/creatinine ratioOrdered By: Genevieve Wu on 01-30-2025 Urea nitrogen/Creatinine [Mass ratio] 21.1 mg/mg High 10-20 [facility] Basophil percentageOrdered B y: Genevieve Wu on 01-30-2025 Basophils/100 WBC (Bld) 0.2 % 0-1 [facility] Carbon dioxide, total [Moles /volume] in Central venous bloodOrdered By: Genevieve Wu on 01-30-2025 CO2 [Moles/Vol] 25.1 mmol/L 21.0-32.0 [facility] Chloride assayOrdered By: Abe Wu on 01-30-2025 Chloride [Moles/Vol] 106 mmol/L 98-108 [facility] Eosinophil percentageOrdered By: Genevieve Wu on 01-30-2025 Eosinophils/100 WBC (Bld) 1.9 % 0-5 [facility] Erythrocyte distribution wid th ratioOrdered By: Genevieve Wu on 01-30-2025 Erythrocyte distribution width (RBC) [Ratio] 16.2 % High 11.6-14.6 [facility] Erythrocyte distribution wid th standard deviationOrdered By: Genevieve Wu on 01-30-2025 Erythrocyte distribution width (RBC) [Ratio] 53.1 fl High 35.1-43.9 [facility] Glomerular filtration rate ( GFR) estimation/1.73 sq m using serum, plasma, or whole bOrdered By: Gerardoswan riversharon Wu on 01-30-2025 GFR/1.73 sq M.predicted among non-blacks MDRD (S/P/Bld) [Vol rate/Area] 63 mL/min/{1.73_m2} >60 [facility] Hematocrit Auto (Bld) [Volum e fraction]Ordered By: Gerardoswan riversharon Wu on 01-30-2025 Hematocrit (Bld) [Volume fraction] 34.7 % Low 37-47 [facility] Hemoglobin measurementOrdere d By: Gerardoswan riversharon Wu on 01-30-2025 Hemoglobin (Bld) [Mass/Vol] 10.5 g/dL Low 12.0-15.0 [facility] Immature granulocytes/100 WB C Auto (Bld)Ordered By: Genevieve Wu on 01-30-2025 Immature granulocytes/100 WBC (Bld) 1.300 % High 0.0-0.9 [facility] MCV (mean corpuscular volume ) determinationOrdered By: Genevieve Wu on 01-30-2025 MCV (RBC) [Entitic vol] 91.3 fL 81-99 [facility] Mean corpuscular hemoglobin (MCH) determinationOrdered By: mihirswan riversharon Wu on 01-30-2025 MCH (RBC) [Entitic mass] 27.6 pg 27.0-32.0 [facility] Monocyte percentageOrdered B y: Genevieve Wu on 01-30-2025 Monocytes/100 WBC (Bld) 10.3 % High 0-10 [facility] Neutrophil percentageOrdered By: Genevieve Wu on 01-30-2025 Neutrophils/100 WBC (Bld) 66.2 % 47-70 [facility] Platelet countOrdered By: Abe haseeb Wu on 01-30-2025 Platelets (Bld) [#/Vol] 331 10*3/uL 150-450 [facility] Potassium measurement (mass/ volume)Ordered By: Genevieve Waynechey on 01-30-2025 Potassium (Unsp spec) [Mass/Vol] 4.2 mmol/L 3.3-5.1 [facility] RBC Auto (Bld) [#/Vol]Ordere d By: Genevieve Waynechey on 01-30-2025 RBC (Bld) [#/Vol] 3.80 10*6/uL Low 4.2-5.4 [facility] Serum creatinine measurement (mass/volume)Ordered By: Genevieve Waynechey on 01-30-2025 Creatinine [Mass/Vol] 0.90 mg/dL 0.70-1.20 [facility] Serum glucose measurement (m ass/volume)Ordered By: Genevieve Waynechey on 01-30-2025 Glucose [Mass/Vol] 128 mg/dL High 70-99 [facility] Serum or plasma calcium candice urement (mass/volume)Ordered By: Genevieve Waynechey on 01-30-2025 Calcium [Mass/Vol] 9.1 mg/dL 7.6-11.0 [facility] Serum or plasma urea nitroge n measurement (mass/volume)Ordered By: Abemihirdion Waynejuanitadrew on 01-30-2025 Urea nitrogen [Mass/Vol] 19 mg/dL 4-19 [facility] Sodium levelOrdered By: Gerardo Wu on 01-30-2025 Sodium [Moles/Vol] 142 mmol/L 133-145 [facility] White blood cell (WBC) count Ordered By: Genevieve Waynechey on 01-30-2025 WBC (Bld) [#/Vol] 9.5 10*3/uL 4.4-11.0 [facility] C-ARM USAGE 1 HOUR C-ARM USAGE 1 HOUR [place] [address] Patient: SAPNA BULLARD Phone#: : 1940 Age: 85 Gender: F Pt. Type: Out Account: [id number] Location: [facility] Ordering: MARCOS WHITE Exam Date: 01/20/2025/12:02 Family Phys: NICCI LEMUS Charge Code: 372272 Physician: Cole Order #: [id number] Dose#: 1.85 mGy PROCEDURE: C-ARM USEAGE 1 HR COMPARISON: [facility], , C-ARM USEAGE 1 HR, 08/11/2024, [...] Richardson MD on 01/20/2025 at 13:05 Normal [facility] Absolute lymphocyte countOrd ered By: Genevieve Wu on 01-02-2025 Lymphocytes Auto (Unsp spec) [#/Vol] 1.82 10*3/uL 0.83-4.51 [facility] Absolute neutrophil countOrd ered By: Genevieve Wu on 01-02-2025 Neutrophils (Bld) [#/Vol] 6.3 10*3/uL 2.0-7.7 [facility] Anion gap in Serum or Plasma Ordered By: Genevieve Wu on 01-02-2025 Anion gap [Moles/Vol] 16 mmol/L High 5-15 [facility] Automated lymphocyte count a s percentage of total leukocytesOrdered By: Genevieve Wu on 01-02-2025 Lymphocytes/100 WBC Auto (Unsp spec) 19.0 % 19-41 [facility] BUN/creatinine ratioOrdered By: Genevieve Wu on 01-02-2025 Urea nitrogen/Creatinine [Mass ratio] 18.7 mg/mg 10-20 [facility] Basophil percentageOrdered B y: Genevieve Wu on 01-02-2025 Basophils/100 WBC (Bld) 0.5 % 0-1 [facility] Bilirubin directOrdered By: Genevieve Wu on 01-02-2025 Bilirubin.direct [Mass/Vol] mg/dL 0.00-0.30 [facility] Bilirubin, totalOrdered By: Genevieve Wu on 01-02-2025 Bilirubin [Mass/Vol] 0.23 mg/dL 0.00-1.30 [facility] Calculated very low density lipoprotein (VLDL) cholesterol measurementOrdered By: Genevieve Wu on 01-02-2025 Calculated very low density lipoprotein (VLDL) cholesterol measurement 38 mg/dL 5-40 [facility] Carbon dioxide, total [Moles /volume] in Central venous bloodOrdered By: Genevieve Wu on 01-02-2025 CO2 [Moles/Vol] 21.7 mmol/L 21.0-32.0 [facility] Chloride assayOrdered By: Abe Wu on 01-02-2025 Chloride [Moles/Vol] 101 mmol/L 98-108 [facility] Eosinophil percentageOrdered By: Genevieve Wu on 01-02-2025 Eosinophils/100 WBC (Bld) 1.6 % 0-5 [facility] Erythrocyte distribution wid th ratioOrdered By: Genevieve Wu on 01-02-2025 Erythrocyte distribution width (RBC) [Ratio] 15.1 % High 11.6-14.6 [facility] Erythrocyte distribution wid th standard deviationOrdered By: Genevieve Wu on 01-02-2025 Erythrocyte distribution width (RBC) [Ratio] 49.0 fl High 35.1-43.9 [facility] Glomerular filtration rate ( GFR) estimation/1.73 sq m using serum, plasma, or whole bOrdered By: Genevieve Wu on 01-02-2025 GFR/1.73 sq M.predicted among non-blacks MDRD (S/P/Bld) [Vol rate/Area] 62 mL/min/{1.73_m2} >60 [facility] Comment on above: mL/min/1.73m2 CKD-EP I Creatinine Equation (2020) Hematocrit Auto (Bld) [Volum e fraction]Ordered By: Genevieve Wu on 01-02-2025 Hematocrit (Bld) [Volume fraction] 39.4 % 37-47 [facility] Hemoglobin measurementOrdere d By: Genevieve Wu on 01-02-2025 Hemoglobin (Bld) [Mass/Vol] 11.9 g/dL Low 12.0-15.0 [facility] Immature granulocytes/100 WB C Auto (Bld)Ordered By: Genevieve Wu on 01-02-2025 Immature granulocytes/100 WBC (Bld) 0.500 % 0.0-0.9 [facility] Comment on above: IG% - Immature Granu locytes (promyelocytes, myelocytes and metamyelocytes) > 1% indicates that a LEFT SHIFT is Present. LDL calc ser/plasOrdered By: Genevieve Wu on 01-02-2025 Cholesterol in LDL [Mass/Vol] 97 mg/dL [facility] Comment on above: Qttsptdqhf=061-414 m g/dL & Higher Cawl=291 mg/dL or greater Laboratory - Chemistry and C hemistry - challengeOrdered By: Genevieve Wu on 01-02-2025 AST [Catalytic activity/Vol] 23 U/L <32 [facility] MCV (mean corpuscular volume ) determinationOrdered By: Genevieve Wu on 01-02-2025 MCV (RBC) [Entitic vol] 88.7 fL 81-99 [facility] Mean corpuscular hemoglobin (MCH) determinationOrdered By: Genevieve Wu on 01-02-2025 MCH (RBC) [Entitic mass] 26.8 pg Low 27.0-32.0 [facility] Mean corpuscular hemoglobin concentration (MCHC) determinationOrdered By: Genevieve Wu on 01-02-2025 MCHC (RBC) [Mass/Vol] 30.2 g/dL Low 32-36 [facility] Mean platelet volume determi nationOrdered By: Genevieve Wu on 01-02-2025 Platelet mean volume (Bld) [Entitic vol] 9.2 fL 6.2-12.0 [facility] Monocyte percentageOrdered B y: Genevieve Wu on 01-02-2025 Monocytes/100 WBC (Bld) 12.3 % High 0-10 [facility] Neutrophil percentageOrdered By: Genevieve Wu on 01-02-2025 Neutrophils/100 WBC (Bld) 66.1 % 47-70 [facility] No Panel InformationOrdered By: Genevieve Wu on 01-02-2025 23 U/L <32 [facility] Nucleated red blood cell per centageOrdered By: Genevieve Wu on 01-02-2025 Nucleated RBC/100 WBC (Bld) [Ratio] 0 % 0-5 [facility] Platelet countOrdered By: Abe mihirdion Wu on 01-02-2025 Platelets (Bld) [#/Vol] 431 10*3/uL 150-450 [facility] Potassium measurement (mass/ volume)Ordered By: Genevieve Wu on 01-02-2025 Potassium (Unsp spec) [Mass/Vol] 3.8 mmol/L 3.3-5.1 [facility] RBC Auto (Bld) [#/Vol]Ordere d By: Genevieve Wu on 01-02-2025 RBC (Bld) [#/Vol] 4.44 10*6/uL 4.2-5.4 [facility] Screening total cholesterol/ high density lipoprotein (HDL) cholesterol ratioOrdered By: Genevieve Wu on 01-02-2025 Cholesterol.total/Cho lesterol in HDL [Mass ratio] 3.62 {ratio} [facility] Serum creatinine measurement (mass/volume)Ordered By: Genevieve Wu on 01-02-2025 Creatinine [Mass/Vol] 0.92 mg/dL 0.70-1.20 [facility] Serum globulin measurementOr dered By: Genevieve Wu on 01-02-2025 Globulin (S) [Mass/Vol] 3.6 g/dL 2.2-4.2 [facility] Serum glucose measurement (m ass/volume)Ordered By: Genevieve Galavizdrew on 01-02-2025 Glucose [Mass/Vol] 76 mg/dL 70-99 [facility] Serum or plasma alanine carpio otransferase (ALT) measurementOrdered By: mihirswan riversharon Wu 01-02-2025 ALT [Catalytic activity/Vol] 7 U/L <35 [facility] Serum or plasma albumin candice urement (mass/volume)Ordered By: Genevieve Waynejuanitadrew 01-02-2025 Albumin [Mass/Vol] 4.0 g/dL 3.4-4.8 [facility] Serum or plasma alkaline anthony sphatase measurementOrdered By: [facility] City[facility] Blackdrew 01-02-2025 ALP [Catalytic activity/Vol] 150 U/L High 35-104 [facility] Serum or plasma calcium candice urement (mass/volume)Ordered By: Genevieve Wu 01-02-2025 Calcium [Mass/Vol] 9.7 mg/dL 7.6-11.0 [facility] Serum or plasma cholesterol in HDL measurement (mass/volume)Ordered By: Genevieve Waynechey 01-02-2025 Cholesterol in HDL [Mass/Vol] 52 mg/dL >40 [facility] Comment on above: National Cholesterol Education Program (NCEP) guidelines:<40 mg/dL: Low HDL-cholesterol (major risk factor for CHD)>= 60 mg/dL: High HDL-cholesterol (negative risk factor for CHD)HDL-cholesterol is affected by a number of factors, e.g. smoking, exercise, hormones, sex and age. Serum or plasma cholesterol measurement (mass/volume)Ordered By: Salliesharon Blackjuanitadrew 01-02-2025 Cholesterol [Mass/Vol] 187 mg/dL <201 [facility] Comment on above: Cholesterol level, D esirable <200 mg/dLBorderline high cholesterol 200-239 mg/dLHigh cholesterol >=240 mg/dLRecommendations of the NCEP Adult Treatment Panel for the following risk-cutoff thresholds for the [place] population. Serum or plasma urea nitroge n measurement (mass/volume)Ordered By: Salliesharon Blackjuanitadrew 01-02-2025 Urea nitrogen [Mass/Vol] 17 mg/dL 4-19 [facility] Sodium levelOrdered By: Gerardo dion Jazmin on 01-02-2025 Sodium [Moles/Vol] 139 mmol/L 133-145 [facility] Total proteinOrdered By: Garry andrewsharon Wu on 01-02-2025 Protein [Mass/Vol] 7.6 g/dL 5.9-8.4 [facility] Triglycerides measurementOrd ered By: Genevieve Wu on 01-02-2025 Triglyceride [Mass/Vol] 192 mg/dL <199 [facility] Comment on above: The drugs N-Acetylcy steine and Metamizole may falsely depress this assay. Normal range: <150 mg/dLBorderline High: 150-199 mg/dLHigh: 200-499 mg/dLVery High: >500 mg/dL White blood cell (WBC) count Ordered By: Genevieve Wu on 01-02-2025 WBC (Bld) [#/Vol] 9.6 10*3/uL 4.4-11.0 [facility] Pulmonary Visit Reporton Pulmonary Visit Report Normal [facility] Neurology Visit Reporton Neurology Visit Report Normal [facility] Absolute lymphocyte countOrd ered By: Genevieve Wu on 11-28-2024 Lymphocytes Auto (Unsp spec) [#/Vol] 2.10 10*3/uL 0.83-4.51 [facility] Absolute neutrophil countOrd ered By: Genevieve Wu on 11-28-2024 Neutrophils (Bld) [#/Vol] 6.1 10*3/uL 2.0-7.7 [facility] Anion gap in Serum or Plasma Ordered By: Genevieve Wu on 11-28-2024 Anion gap [Moles/Vol] 14 mmol/L 5-15 [facility] Automated lymphocyte count a s percentage of total leukocytesOrdered By: Genevieve Wu on 11-28-2024 Lymphocytes/100 WBC Auto (Unsp spec) 22.2 % 19-41 [facility] BUN/creatinine ratioOrdered By: Genevieve Wu on 11-28-2024 Urea nitrogen/Creatinine [Mass ratio] 14.9 mg/mg 10-20 [facility] Basophil percentageOrdered B y: Genevieve Wu on 11-28-2024 Basophils/100 WBC (Bld) 0.7 % 0-1 [facility] Carbon dioxide, total [Moles /volume] in Central venous bloodOrdered By: Genevieve Wu on 11-28-2024 CO2 [Moles/Vol] 23.8 mmol/L 21.0-32.0 [facility] Chest without Contraston Chest without Contrast Normal [facility] Chloride assayOrdered By: Abe Wu on 11-28-2024 Chloride [Moles/Vol] 103 mmol/L 98-108 [facility] Eosinophil percentageOrdered By: Genevieve Wu on 11-28-2024 Eosinophils/100 WBC (Bld) 2.0 % 0-5 [facility] Erythrocyte distribution wid th ratioOrdered By: Genevieve Wu on 11-28-2024 Erythrocyte distribution width (RBC) [Ratio] 14.6 % 11.6-14.6 [facility] Erythrocyte distribution wid th standard deviationOrdered By: Genevieve Wu on 11-28-2024 Erythrocyte distribution width (RBC) [Ratio] 46.7 fl High 35.1-43.9 [facility] Glomerular filtration rate ( GFR) estimation/1.73 sq m using serum, plasma, or whole bOrdered By: Genevieve Wu on 11-28-2024 GFR/1.73 sq M.predicted among non-blacks MDRD (S/P/Bld) [Vol rate/Area] 57 mL/min/{1.73_m2} Low >60 [facility] Comment on above: mL/min/1.73m2 CKD-EP I Creatinine Equation (2020) Hematocrit Auto (Bld) [Volum e fraction]Ordered By: Genevieve Wu on 11-28-2024 Hematocrit (Bld) [Volume fraction] 40.5 % 37-47 [facility] Hemoglobin measurementOrdere d By: Genevieve Wu on 11-28-2024 Hemoglobin (Bld) [Mass/Vol] 12.3 g/dL 12.0-15.0 [facility] Immature granulocytes/100 WB C Auto (Bld)Ordered By: Genevieve Wu on 11-28-2024 Immature granulocytes/100 WBC (Bld) 0.400 % 0.0-0.9 [facility] Comment on above: IG% - Immature Granu locytes (promyelocytes, myelocytes and metamyelocytes) > 1% indicates that a LEFT SHIFT is Present. MCV (mean corpuscular volume ) determinationOrdered By: Genevieve Wu on 11-28-2024 MCV (RBC) [Entitic vol] 87.9 fL 81-99 [facility] Mean corpuscular hemoglobin (MCH) determinationOrdered By: Genevieve Wu on 11-28-2024 MCH (RBC) [Entitic mass] 26.7 pg Low 27.0-32.0 [facility] Mean corpuscular hemoglobin concentration (MCHC) determinationOrdered By: Genevieve Wu on 11-28-2024 MCHC (RBC) [Mass/Vol] 30.4 g/dL Low 32-36 [facility] Mean platelet volume determi nationOrdered By: Genevieve Wu on 11-28-2024 Platelet mean volume (Bld) [Entitic vol] 9.3 fL 6.2-12.0 [facility] Monocyte percentageOrdered B y: Genevieve Wu on 11-28-2024 Monocytes/100 WBC (Bld) 10.1 % High 0-10 [facility] Neutrophil percentageOrdered By: Genevieve Wu on 11-28-2024 Neutrophils/100 WBC (Bld) 64.6 % 47-70 [facility] Nucleated red blood cell per centageOrdered By: haseeb Wu on 11-28-2024 Nucleated RBC/100 WBC (Bld) [Ratio] 0 % 0-5 [facility] Platelet countOrdered By: Abe Wu on 11-28-2024 Platelets (Bld) [#/Vol] 415 10*3/uL 150-450 [facility] Potassium measurement (mass/ volume)Ordered By: Genevieve Wu on 11-28-2024 Potassium (Unsp spec) [Mass/Vol] 3.4 mmol/L 3.3-5.1 [facility] RBC Auto (Bld) [#/Vol]Ordere d By: Genevieve Wu on 11-28-2024 RBC (Bld) [#/Vol] 4.61 10*6/uL 4.2-5.4 [facility] Serum creatinine measurement (mass/volume)Ordered By: Abemihirkarleysharon Blackjuanitadrew on 11-28-2024 Creatinine [Mass/Vol] 0.98 mg/dL 0.70-1.20 [facility] Serum glucose measurement (m ass/volume)Ordered By: Gerardoswan riversharon Wu on 11-28-2024 Glucose [Mass/Vol] 95 mg/dL 70-99 [facility] Serum or plasma calcium candice urement (mass/volume)Ordered By: [facility] Blackjuanitadrew on 11-28-2024 Calcium [Mass/Vol] 9.5 mg/dL 7.6-11.0 [facility] Serum or plasma urea nitroge n measurement (mass/volume)Ordered By: [facility] Blackjuanitadrew on 11-28-2024 Urea nitrogen [Mass/Vol] 15 mg/dL 4-19 [facility] Sodium levelOrdered By: [facility] dion Waynejuanitadrew on 11-28-2024 Sodium [Moles/Vol] 141 mmol/L 133-145 [facility] White blood cell (WBC) count Ordered By: Abehaseeb Blackjuanitadrew on 11-28-2024 WBC (Bld) [#/Vol] 9.5 10*3/uL 4.4-11.0 [facility] Echocardiogram study reportO rdered By: Sharon Crouch on 11-09-2024 Study report [facility] [address] [place] [address] Echo Complete 11/08/24 0912 MR#: [id number] Acct: [id number] Name: SAPNA BULLARD Rep #:[id number] : 1940 84 From: Sharon Crouch MD Attending Dr: Dr. Yunior Desai MD Status: REG CLI Ordering Dr: Yunior Desai MD Date: 11/08/24 Location: [facility] Sex: F C Admitted: Reason For [...] Dr. Yunior Desai MD ~ Date Dictated: 11/08/24911 Date Transcribed: 11/09/24 1034 [employer] Officer: Signed [facility] Work Phone: Echo Completeon 11-08-2024 Echo Complete Normal [facility] Absolute lymphocyte countOrd ered By: Genevieve Wu on 10-31-2024 Lymphocytes Auto (Unsp spec) [#/Vol] 1.57 10*3/uL 0.83-4.51 [facility] Absolute neutrophil countOrd ered By: Genevieve Wu on 10-31-2024 Neutrophils (Bld) [#/Vol] 5.6 10*3/uL 2.0-7.7 [facility] Anion gap in Serum or Plasma Ordered By: Genevieve Wu on 10-31-2024 Anion gap [Moles/Vol] 11 mmol/L 5-15 [facility] Automated lymphocyte count a s percentage of total leukocytesOrdered By: Genevieve Wu on 10-31-2024 Lymphocytes/100 WBC Auto (Unsp spec) 18.6 % Low 19-41 [facility] BUN/creatinine ratioOrdered By: Genevieve Wu on 10-31-2024 Urea nitrogen/Creatinine [Mass ratio] 17.8 mg/mg 10-20 [facility] Basophil percentageOrdered B y: Genevieve Wu on 10-31-2024 Basophils/100 WBC (Bld) 0.6 % 0-1 [facility] Carbon dioxide, total [Moles /volume] in Central venous bloodOrdered By: Genevieve Wu on 10-31-2024 CO2 [Moles/Vol] 25.5 mmol/L 21.0-32.0 [facility] Chloride assayOrdered By: Abe Wu on 10-31-2024 Chloride [Moles/Vol] 103 mmol/L 98-108 [facility] Eosinophil percentageOrdered By: Genevieve Wu on 10-31-2024 Eosinophils/100 WBC (Bld) 2.1 % 0-5 [facility] Erythrocyte distribution wid th ratioOrdered By: Genevieve Wu on 10-31-2024 Erythrocyte distribution width (RBC) [Ratio] 14.3 % 11.6-14.6 [facility] Erythrocyte distribution wid th standard deviationOrdered By: mihirswan riversharon Wu on 10-31-2024 Erythrocyte distribution width (RBC) [Ratio] 45.2 fl High 35.1-43.9 [facility] Glomerular filtration rate ( GFR) estimation/1.73 sq m using serum, plasma, or whole bOrdered By: mihirswan riversharon Wu on 10-31-2024 GFR/1.73 sq M.predicted among non-blacks MDRD (S/P/Bld) [Vol rate/Area] 57 mL/min/{1.73_m2} Low >60 [facility] Comment on above: mL/min/1.73m2 CKD-EP I Creatinine Equation (2020) Hematocrit Auto (Bld) [Volum e fraction]Ordered By: Genevieve Wu on 10-31-2024 Hematocrit (Bld) [Volume fraction] 36.3 % Low 37-47 [facility] Hemoglobin measurementOrdere d By: Genevieve Wu on 10-31-2024 Hemoglobin (Bld) [Mass/Vol] 11.3 g/dL Low 12.0-15.0 [facility] Immature granulocytes/100 WB C Auto (Bld)Ordered By: Genevieve Wu 10-31-2024 Immature granulocytes/100 WBC (Bld) 0.500 % 0.0-0.9 [facility] Comment on above: IG% - Immature Granu locytes (promyelocytes, myelocytes and metamyelocytes) > 1% indicates that a LEFT SHIFT is Present. MCV (mean corpuscular volume ) determinationOrdered By: Genevieve Wu on 10-31-2024 MCV (RBC) [Entitic vol] 86.2 fL 81-99 [facility] Mean corpuscular hemoglobin (MCH) determinationOrdered By: haseeb Wu 10-31-2024 MCH (RBC) [Entitic mass] 26.8 pg Low 27.0-32.0 [facility] Mean corpuscular hemoglobin concentration (MCHC) determinationOrdered By: Genevieve Wu on 10-31-2024 MCHC (RBC) [Mass/Vol] 31.1 g/dL Low 32-36 [facility] Mean platelet volume determi nationOrdered By: Genevieve Wu on 10-31-2024 Platelet mean volume (Bld) [Entitic vol] 9.2 fL 6.2-12.0 [facility] Monocyte percentageOrdered B y: Genevieve Wu on 10-31-2024 Monocytes/100 WBC (Bld) 11.9 % High 0-10 [facility] Neutrophil percentageOrdered By: Genevieve Wu on 10-31-2024 Neutrophils/100 WBC (Bld) 66.3 % 47-70 [facility] Nucleated red blood cell per centageOrdered By: Genevieve Wu on 10-31-2024 Nucleated RBC/100 WBC (Bld) [Ratio] 0 % 0-5 [facility] Platelet countOrdered By: Abe Wu on 10-31-2024 Platelets (Bld) [#/Vol] 353 10*3/uL 150-450 [facility] Potassium measurement (mass/ volume)Ordered By: Genevieve Wu on 10-31-2024 Potassium (Unsp spec) [Mass/Vol] 4.1 mmol/L 3.3-5.1 [facility] RBC Auto (Bld) [#/Vol]Ordere d By: Genevieve Wu on 10-31-2024 RBC (Bld) [#/Vol] 4.21 10*6/uL 4.2-5.4 [facility] Serum creatinine measurement (mass/volume)Ordered By: Genevieve Wu on 10-31-2024 Creatinine [Mass/Vol] 0.99 mg/dL 0.70-1.20 [facility] Serum glucose measurement (m ass/volume)Ordered By: Genevieve Wu on 10-31-2024 Glucose [Mass/Vol] 92 mg/dL 70-99 [facility] Serum or plasma calcium candice urement (mass/volume)Ordered By: Genevieve Wu on 10-31-2024 Calcium [Mass/Vol] 9.1 mg/dL 7.6-11.0 [facility] Serum or plasma urea nitroge n measurement (mass/volume)Ordered By: Genevieve Wu on 10-31-2024 Urea nitrogen [Mass/Vol] 18 mg/dL 4-19 [facility] Sodium levelOrdered By: Gerardo Wu on 10-31-2024 Sodium [Moles/Vol] 139 mmol/L 133-145 [facility] White blood cell (WBC) count Ordered By: Genevieve Wu on 10-31-2024 WBC (Bld) [#/Vol] 8.5 10*3/uL 4.4-11.0 [facility] Cardiology Visit Reporton Cardiology Visit Report Normal [facility] Absolute lymphocyte countOrd ered By: Genevieve Wu on 10-03-2024 Lymphocytes Auto (Unsp spec) [#/Vol] 2.02 10*3/uL 0.83-4.51 [facility] Absolute neutrophil countOrd ered By: Genevieve Wu on 10-03-2024 Neutrophils (Bld) [#/Vol] 5.3 10*3/uL 2.0-7.7 [facility] Anion gap in Serum or Plasma Ordered By: Genevieve Wu on 10-03-2024 Anion gap [Moles/Vol] 11 mmol/L 5-15 [facility] Automated lymphocyte count a s percentage of total leukocytesOrdered By: Genevieve Wu on 10-03-2024 Lymphocytes/100 WBC Auto (Unsp spec) 23.5 % 19-41 [facility] BUN/creatinine ratioOrdered By: Genevieve Wu on 10-03-2024 Urea nitrogen/Creatinine [Mass ratio] 22.3 mg/mg High 10-20 [facility] Basophil percentageOrdered B y: Genevieve Wu on 10-03-2024 Basophils/100 WBC (Bld) 0.6 % 0-1 [facility] Bilirubin directOrdered By: Genevieve Wu on 10-03-2024 Bilirubin.direct [Mass/Vol] mg/dL 0.00-0.30 [facility] Bilirubin, totalOrdered By: Genevieve Wu on 10-03-2024 Bilirubin [Mass/Vol] 0.18 mg/dL 0.00-1.30 [facility] Carbon dioxide, total [Moles /volume] in Central venous bloodOrdered By: Genevieve Wu on 10-03-2024 CO2 [Moles/Vol] 28.4 mmol/L 21.0-32.0 [facility] Chloride assayOrdered By: Abe Wu on 10-03-2024 Chloride [Moles/Vol] 101 mmol/L 98-108 [facility] Eosinophil percentageOrdered By: Genevieve Wu on 10-03-2024 Eosinophils/100 WBC (Bld) 2.4 % 0-5 [facility] Erythrocyte distribution wid th ratioOrdered By: Genevieve Wu on 10-03-2024 Erythrocyte distribution width (RBC) [Ratio] 14.8 % High 11.6-14.6 [facility] Erythrocyte distribution wid th standard deviationOrdered By: mihirswan riversharon Wu 10-03-2024 Erythrocyte distribution width (RBC) [Ratio] 47.3 fl High 35.1-43.9 [facility] Glomerular filtration rate ( GFR) estimation/1.73 sq m using serum, plasma, or whole bOrdered By: Genevieve Wu 10-03-2024 GFR/1.73 sq M.predicted among non-blacks MDRD (S/P/Bld) [Vol rate/Area] 61 mL/min/{1.73_m2} >60 [facility] Comment on above: mL/min/1.73m2 CKD-EP I Creatinine Equation (2020) Hematocrit Auto (Bld) [Volum e fraction]Ordered By: Genevieve Wu on 10-03-2024 Hematocrit (Bld) [Volume fraction] 39.7 % 37-47 [facility] Hemoglobin measurementOrdere d By: Genevieve Wu 10-03-2024 Hemoglobin (Bld) [Mass/Vol] 12.1 g/dL 12.0-15.0 [facility] Immature granulocytes/100 WB C Auto (Bld)Ordered By: Genevieve Wu on 10-03-2024 Immature granulocytes/100 WBC (Bld) 0.800 % 0.0-0.9 [facility] Comment on above: IG% - Immature Granu locytes (promyelocytes, myelocytes and metamyelocytes) > 1% indicates that a LEFT SHIFT is Present. Laboratory - Chemistry and C hemistry - challengeOrdered By: Genevieve Wu on 10-03-2024 AST [Catalytic activity/Vol] 22 U/L <32 [facility] MCV (mean corpuscular volume ) determinationOrdered By: Genevieve Wu on 10-03-2024 MCV (RBC) [Entitic vol] 87.3 fL 81-99 [facility] Mean corpuscular hemoglobin (MCH) determinationOrdered By: Genevieve Wu on 10-03-2024 MCH (RBC) [Entitic mass] 26.6 pg Low 27.0-32.0 [facility] Mean corpuscular hemoglobin concentration (MCHC) determinationOrdered By: Genevieve Wu on 10-03-2024 MCHC (RBC) [Mass/Vol] 30.5 g/dL Low 32-36 [facility] Mean platelet volume determi nationOrdered By: Genevieve Wu on 10-03-2024 Platelet mean volume (Bld) [Entitic vol] 9.1 fL 6.2-12.0 [facility] Monocyte percentageOrdered B y: Genevieve Wu on 10-03-2024 Monocytes/100 WBC (Bld) 11.4 % High 0-10 [facility] Neutrophil percentageOrdered By: mihirswan riversharon Wu on 10-03-2024 Neutrophils/100 WBC (Bld) 61.3 % 47-70 [facility] Nucleated red blood cell per centageOrdered By: Genevieve Wu on 10-03-2024 Nucleated RBC/100 WBC (Bld) [Ratio] 0 % 0-5 [facility] Platelet countOrdered By: Abe Wu on 10-03-2024 Platelets (Bld) [#/Vol] 456 10*3/uL High 150-450 [facility] Potassium measurement (mass/ volume)Ordered By: Genevieve Wu on 10-03-2024 Potassium (Unsp spec) [Mass/Vol] 4.1 mmol/L 3.3-5.1 [facility] RBC Auto (Bld) [#/Vol]Ordere d By: Genevieve Wu on 10-03-2024 RBC (Bld) [#/Vol] 4.55 10*6/uL 4.2-5.4 [facility] Serum creatinine measurement (mass/volume)Ordered By: Genevieve Wu on 10-03-2024 Creatinine [Mass/Vol] 0.93 mg/dL 0.70-1.20 [facility] Serum globulin measurementOr dered By: Genevieve Wu on 10-03-2024 Globulin (S) [Mass/Vol] 3.5 g/dL 2.2-4.2 [facility] Serum glucose measurement (m ass/volume)Ordered By: Genevieve Wu on 10-03-2024 Glucose [Mass/Vol] 95 mg/dL 70-99 [facility] Serum or plasma alanine carpio otransferase (ALT) measurementOrdered By: Genevieve Wu 10-03-2024 ALT [Catalytic activity/Vol] 16 U/L <35 [facility] Serum or plasma albumin candice urement (mass/volume)Ordered By: Genevieve Wu 10-03-2024 Albumin [Mass/Vol] 3.9 g/dL 3.4-4.8 [facility] Serum or plasma alkaline anthony sphatase measurementOrdered By: Genevieve Wu 10-03-2024 ALP [Catalytic activity/Vol] 138 U/L High 35-104 [facility] Serum or plasma calcium candice urement (mass/volume)Ordered By: Genevieve Wu on 10-03-2024 Calcium [Mass/Vol] 10.0 mg/dL 7.6-11.0 [facility] Serum or plasma urea nitroge n measurement (mass/volume)Ordered By: Genevieve Wu 10-03-2024 Urea nitrogen [Mass/Vol] 21 mg/dL High 4-19 [facility] Sodium levelOrdered By: Gerardo Wu on 10-03-2024 Sodium [Moles/Vol] 141 mmol/L 133-145 [facility] Total proteinOrdered By: Garry Wu on 10-03-2024 Protein [Mass/Vol] 7.4 g/dL 5.9-8.4 [facility] White blood cell (WBC) count Ordered By: Genevieve Waynechey on 10-03-2024 WBC (Bld) [#/Vol] 8.6 10*3/uL 4.4-11.0 [facility] Pulmonary Visit Reporton Pulmonary Visit Report Normal [facility] Absolute lymphocyte countOrd ered By: Genevieve Wu on 08-29-2024 Lymphocytes Auto (Unsp spec) [#/Vol] 1.30 10*3/uL 0.83-4.51 [facility] Absolute neutrophil countOrd ered By: Genevieve Wu on 08-29-2024 Neutrophils (Bld) [#/Vol] 5.4 10*3/uL 2.0-7.7 [facility] Anion gap in Serum or Plasma Ordered By: Genevieve Wu on 08-29-2024 Anion gap [Moles/Vol] 9 mmol/L 5-15 [facility] Automated lymphocyte count a s percentage of total leukocytesOrdered By: Abemihirkarleysharon Blackjuanitadrew on 08-29-2024 Lymphocytes/100 WBC Auto (Unsp spec) 16.7 % Low 19-41 [facility] BUN/creatinine ratioOrdered By: Genevieve Waynejuanitadrew on 08-29-2024 Urea nitrogen/Creatinine [Mass ratio] 20.0 mg/mg 10-20 [facility] Basophil percentageOrdered B y: Genevieve Galavizdrew on 08-29-2024 Basophils/100 WBC (Bld) 0.6 % 0-1 [facility] Carbon dioxide, total [Moles /volume] in Central venous bloodOrdered By: Abemihirdion Waynejuanitadrew on 08-29-2024 CO2 [Moles/Vol] 27.1 mmol/L 21.0-32.0 [facility] Chloride assayOrdered By: Abe Wu on 08-29-2024 Chloride [Moles/Vol] 101 mmol/L 98-108 [facility] Eosinophil percentageOrdered By: Genevieve Wu on 08-29-2024 Eosinophils/100 WBC (Bld) 2.2 % 0-5 [facility] Erythrocyte distribution wid th ratioOrdered By: Genevieve Wu on 08-29-2024 Erythrocyte distribution width (RBC) [Ratio] 16.1 % High 11.6-14.6 [facility] Erythrocyte distribution wid th standard deviationOrdered By: Genevieve Wu on 08-29-2024 Erythrocyte distribution width (RBC) [Ratio] 50.8 fl High 35.1-43.9 [facility] Glomerular filtration rate ( GFR) estimation/1.73 sq m using serum, plasma, or whole bOrdered By: Genevieve Wu on 08-29-2024 GFR/1.73 sq M.predicted among non-blacks MDRD (S/P/Bld) [Vol rate/Area] 64 mL/min/{1.73_m2} >60 [facility] Comment on above: mL/min/1.73m2 CKD-EP I Creatinine Equation (2020) Hematocrit Auto (Bld) [Volum e fraction]Ordered By: Genevieve Wu on 08-29-2024 Hematocrit (Bld) [Volume fraction] 38.6 % 37-47 [facility] Hemoglobin measurementOrdere d By: Genevieve Wu on 08-29-2024 Hemoglobin (Bld) [Mass/Vol] 11.9 g/dL Low 12.0-15.0 [facility] Immature granulocytes/100 WB C Auto (Bld)Ordered By: Genevieve Wu on 08-29-2024 Immature granulocytes/100 WBC (Bld) 0.500 % 0.0-0.9 [facility] Comment on above: IG% - Immature Granu locytes (promyelocytes, myelocytes and metamyelocytes) > 1% indicates that a LEFT SHIFT is Present. MCV (mean corpuscular volume ) determinationOrdered By: Genevieve Wu 08-29-2024 MCV (RBC) [Entitic vol] 86.2 fL 81-99 [facility] Mean corpuscular hemoglobin (MCH) determinationOrdered By: Genevieve Waynejuanitadrew on 08-29-2024 MCH (RBC) [Entitic mass] 26.6 pg Low 27.0-32.0 [facility] Mean corpuscular hemoglobin concentration (MCHC) determinationOrdered By: Abemihirkarleysharon Blackjuanitadrew on 08-29-2024 MCHC (RBC) [Mass/Vol] 30.8 g/dL Low 32-36 [facility] Mean platelet volume determi nationOrdered By: Genevieve Waynejuanitadrew on 08-29-2024 Platelet mean volume (Bld) [Entitic vol] 8.9 fL 6.2-12.0 [facility] Monocyte percentageOrdered B y: Gerardokarleysharon Blackjuanitadrew on 08-29-2024 Monocytes/100 WBC (Bld) 11.2 % High 0-10 [facility] Neutrophil percentageOrdered By: Gerardodion Waynejuanitadrew on 08-29-2024 Neutrophils/100 WBC (Bld) 68.8 % 47-70 [facility] Nucleated red blood cell per centageOrdered By: Genevieve Waynechey on 08-29-2024 Nucleated RBC/100 WBC (Bld) [Ratio] 0 % 0-5 [facility] Platelet countOrdered By: Abe haseeb Waynejuanitadrew on 08-29-2024 Platelets (Bld) [#/Vol] 389 10*3/uL 150-450 [facility] Potassium measurement (mass/ volume)Ordered By: Genevieve Wu on 08-29-2024 Potassium (Unsp spec) [Mass/Vol] 4.1 mmol/L 3.3-5.1 [facility] RBC Auto (Bld) [#/Vol]Ordere d By: Abemihirkarleysharon Blackjuanitadrew on 08-29-2024 RBC (Bld) [#/Vol] 4.48 10*6/uL 4.2-5.4 [facility] Serum creatinine measurement (mass/volume)Ordered By: Genevieve Wu on 08-29-2024 Creatinine [Mass/Vol] 0.90 mg/dL 0.70-1.20 [facility] Serum glucose measurement (m ass/volume)Ordered By: Genevieve Wu on 08-29-2024 Glucose [Mass/Vol] 87 mg/dL 70-99 [facility] Serum or plasma calcium candice urement (mass/volume)Ordered By: Gerardoswan riversharon Wu on 08-29-2024 Calcium [Mass/Vol] 9.6 mg/dL 7.6-11.0 [facility] Serum or plasma urea nitroge n measurement (mass/volume)Ordered By: Genevieve Waynejuanitadrew on 08-29-2024 Urea nitrogen [Mass/Vol] 18 mg/dL 4-19 [facility] Sodium levelOrdered By: [facility] dion Wu on 08-29-2024 Sodium [Moles/Vol] 138 mmol/L 133-145 [facility] White blood cell (WBC) count Or[facility] By: [facility] Waynejuanitadrew on 08-29-2024 WBC (Bld) [#/Vol] 7.8 10*3/uL 4.4-11.0 [facility] OPERATIVE PROCEDURESon 08-12 OPERATIVE PROCEDURES [facility] OPERATIVE REPORT NAME ACCOUNT SEX AGE ADMIT DISCHARGE PT MED. RECORD# NUMBER DATE DATE TYPE SAPNA BULLARD [id number] F 84 08/11/24 2 [id number] ROOM: DATE OF : 1940 DICTATING PHYSICIAN: Marcos White DATE OF PROCEDURE: August 11, 2024 SURGEON: Marcos White DO [employer]OOF [employer]OLTER OPERATOR: None. ANESTHESIA: Local. PREPROCEDURE DIAGNOSES: 1. [...] Marcos White DO 08/11/24 10:54 JOB #: [id number] Transcribed By: am 08/11/24 11:28 Electronically signed by: E-SIGN: MARCOS WHITE 08/12/24 14:42 Page 2 of 2 SAPNA BULLARD Operative Report Normal [facility] C-ARM USAGE 1 HOUR C-ARM USAGE 1 HOUR [place] [address] Patient: SAPNA BULLARD. Phone#: : 1940 Age: 84 Gender: F Pt. Type: Out Account: [id number] Location: 062 Ordering: MARCOS WHITE Exam Date: 08/11/2024/10:47 Family Phys: NICCI LEMUS Charge Code: 281660 Physician: Cole Order #: [id number] Dose#: 1.12 mGy PROCEDURE: C-ARM USEAGE 1 HR COMPARISON: [facility], C-ARM USEAGE 1 HR, 02/05/2024, 11:01. [...] Richardson MD on 08/11/2024 at 12:24 Normal [facility] Chest WITH Contraston 2024 Chest WITH Contrast Normal [facility] Absolute lymphocyte countOrd ered By: Genevieve Wu on 08-01-2024 Lymphocytes Auto (Unsp spec) [#/Vol] 1.98 10*3/uL 0.83-4.51 [facility] Absolute neutrophil countOrd ered By: Genevieve Wu on 08-01-2024 Neutrophils (Bld) [#/Vol] 4.1 10*3/uL 2.0-7.7 [facility] Automated lymphocyte count a s percentage of total leukocytesOrdered By: Genevieve Wu on 08-01-2024 Lymphocytes/100 WBC Auto (Unsp spec) 25.7 % 19-41 [facility] Basophil percentageOrdered B y: Genevieve Wu on 08-01-2024 Basophils/100 WBC (Bld) 0.9 % 0-1 [facility] Blood urea nitrogen (BUN)/cr eatinine ratioOrdered By: Genevieve Wu on 08-01-2024 Urea nitrogen/Creatinine [Mass ratio] 20.6 mg/mg High 10-20 [facility] Carbon dioxide measurementOr dered By: Genevieve Wu on 08-01-2024 CO2 [Moles/Vol] 32.0 mmol/L 21.0-32.0 [facility] Chloride measurementOrdered By: Genevieve Wu on 08-01-2024 Chloride [Moles/Vol] 101 mmol/L 98-107 [facility] Eosinophil percentageOrdered By: Genevieve Wu on 08-01-2024 Eosinophils/100 WBC (Bld) 4.8 % 0-5 [facility] Erythrocyte distribution wid th ratioOrdered By: [facility] on 08-01-2024 Erythrocyte distribution width (RBC) [Ratio] 15.6 % High 11.6-14.6 [facility] Erythrocyte distribution wid th standard deviationOrdered By: [facility] on 08-01-2024 Erythrocyte distribution width (RBC) [Ratio] 49.8 fl High 35.1-43.9 [facility] Glomerular filtration rate ( GFR) estimationOrdered By: [facility] on 08-01-2024 GFR/1.73 sq M.predicted among non-blacks MDRD (S/P/Bld) [Vol rate/Area] 55 mL/min/{1.73_m2} Low >60 [facility] Comment on above: Non- GFR Calc Glucose measurementOrdered B y: haseeb Wu on 08-01-2024 Glucose [Mass/Vol] 85 mg/dL 74-106 [facility] Hematocrit Auto (Bld) [Volum e fraction]Ordered By: [facility] Blackdrew on 08-01-2024 Hematocrit (Bld) [Volume fraction] 39.0 % 37-47 [facility] Hemoglobin measurementOrdere d By: mihirswan riversharon Wu on 08-01-2024 Hemoglobin (Bld) [Mass/Vol] 11.4 g/dL Low 12.0-15.0 [facility] Immature granulocytes/100 WB C Auto (Bld)Ordered By: [facility] Waynedrew 08-01-2024 Immature granulocytes/100 WBC (Bld) 0.800 % 0.0-0.9 [facility] Comment on above: IG% - Immature Granu locytes (promyelocytes, myelocytes and metamyelocytes) > 1% indicates that a LEFT SHIFT is Present. MCV (mean corpuscular volume ) determinationOrdered By: [facility] Blackdrew on 08-01-2024 MCV (RBC) [Entitic vol] 87.4 fL 81-99 [facility] Mean corpuscular hemoglobin (MCH) determinationOrdered By: [facility] Waynedrew 08-01-2024 MCH (RBC) [Entitic mass] 25.6 pg Low 27.0-32.0 [facility] Mean corpuscular hemoglobin concentration (MCHC) determinationOrdered By: Genevieve Wu on 08-01-2024 MCHC (RBC) [Mass/Vol] 29.2 g/dL Low 32-36 [facility] Mean platelet volume determi nationOrdered By: Genevieve Wu on 08-01-2024 Platelet mean volume (Bld) [Entitic vol] 9.0 fL 6.2-12.0 [facility] Monocyte percentageOrdered B y: Genevieve Wu on 08-01-2024 Monocytes/100 WBC (Bld) 14.2 % High 0-10 [facility] Neutrophil percentageOrdered By: Genevieve Wu on 08-01-2024 Neutrophils/100 WBC (Bld) 53.6 % 47-70 [facility] Nucleated red blood cell per centageOrdered By: Genevieve Wu on 08-01-2024 Nucleated RBC/100 WBC (Bld) [Ratio] 0 % 0-5 [facility] Platelet countOrdered By: Abe Wu on 08-01-2024 Platelets (Bld) [#/Vol] 408 10*3/uL 150-450 [facility] Potassium measurementOrdered By: Genevieve Wu on 08-01-2024 Potassium [Moles/Vol] 4.1 mmol/L 3.5-5.1 [facility] RBC Auto (Bld) [#/Vol]Ordere d By: Genevieve Wu on 08-01-2024 RBC (Bld) [#/Vol] 4.46 10*6/uL 4.2-5.4 [facility] Serum anion gap measurementO rdered By: Genevieve Wu on 08-01-2024 Anion gap [Moles/Vol] 6 mmol/L 5-15 [facility] Serum or plasma calcium candice urement (mass/volume)Ordered By: Genevieve Wu on 08-01-2024 Calcium [Mass/Vol] 10.1 mg/dL 8.5-10.1 [facility] Serum or plasma creatinine m easurement (mass/volume)Ordered By: Genevieve Wu on 08-01-2024 Creatinine [Mass/Vol] 1.02 mg/dL 0.55-1.02 [facility] Comment on above: The validity of the calculated GFR & GFRAA in patients over 70 years has not been determined. Clinical correlation is essential. Serum or plasma urea nitroge n measurement (mass/volume)Ordered By: Genevieve Wu on 08-01-2024 Urea nitrogen [Mass/Vol] 21 mg/dL High -18 [facility] Sodium levelOrdered By: Gerardo dion Jazmin on 08-01-2024 Sodium [Moles/Vol] 139 mmol/L 136-145 [facility] White blood cell (WBC) count Ordered By: Genevieve Wu on 08-01-2024 WBC (Bld) [#/Vol] 7.7 10*3/uL 4.4-11.0 [facility] Neurology Visit Reporton Neurology Visit Report Normal [facility] Absolute lymphocyte countOrd ered By: Genevieve Wu on 06-30-2024 Lymphocytes Auto (Unsp spec) [#/Vol] 1.62 10*3/uL 0.83-4.51 [facility] Absolute neutrophil countOrd ered By: Genevieve Blackjuanitadrew on 06-30-2024 Neutrophils (Bld) [#/Vol] 4.2 10*3/uL 2.0-7.7 [facility] Automated lymphocyte count a s percentage of total leukocytesOrdered By: Genevieve Wu on 06-30-2024 Lymphocytes/100 WBC Auto (Unsp spec) 22.7 % 19-41 [facility] Basophil percentageOrdered B y: Genevieve Blackjuanitadrew on 06-30-2024 Basophils/100 WBC (Bld) 0.6 % 0-1 [facility] Blood urea nitrogen (BUN)/cr eatinine ratioOrdered By: Genevieve Wu on 06-30-2024 Urea nitrogen/Creatinine [Mass ratio] 27.1 mg/mg High 10-20 [facility] Carbon dioxide measurementOr dered By: Genevieve Wu on 06-30-2024 CO2 [Moles/Vol] 29.0 mmol/L 21.0-32.0 [facility] Chloride measurementOrdered By: Genevieve Wu on 06-30-2024 Chloride [Moles/Vol] 106 mmol/L 98-107 [facility] Eosinophil percentageOrdered By: haseeb Wu on 06-30-2024 Eosinophils/100 WBC (Bld) 3.2 % 0-5 [facility] Erythrocyte distribution wid th ratioOrdered By: Genevieve Wu on 06-30-2024 Erythrocyte distribution width (RBC) [Ratio] 15.3 % High 11.6-14.6 [facility] Erythrocyte distribution wid th standard deviationOrdered By: haseeb Wu on 06-30-2024 Erythrocyte distribution width (RBC) [Ratio] 47.4 fl High 35.1-43.9 [facility] Glomerular filtration rate ( GFR) estimationOrdered By: Genevieve Wu on 06-30-2024 GFR/1.73 sq M.predicted among non-blacks MDRD (S/P/Bld) [Vol rate/Area] 65 mL/min/{1.73_m2} >60 [facility] Comment on above: Non- GFR Calc Glucose measurementOrdered B y: Genevieve Wu on 06-30-2024 Glucose [Mass/Vol] 87 mg/dL 74-106 [facility] Hematocrit Auto (Bld) [Volum e fraction]Ordered By: Genevieve Wu on 06-30-2024 Hematocrit (Bld) [Volume fraction] 32.5 % Low 37-47 [facility] Hemoglobin measurementOrdere d By: Genevieve Wu on 06-30-2024 Hemoglobin (Bld) [Mass/Vol] 9.6 g/dL Low 12.0-15.0 [facility] Immature granulocytes/100 WB C Auto (Bld)Ordered By: Genevieve Wu on 06-30-2024 Immature granulocytes/100 WBC (Bld) 0.800 % 0.0-0.9 [facility] Comment on above: IG% - Immature Granu locytes (promyelocytes, myelocytes and metamyelocytes) > 1% indicates that a LEFT SHIFT is Present. MCV (mean corpuscular volume ) determinationOrdered By: Genevieve Wu on 06-30-2024 MCV (RBC) [Entitic vol] 87.1 fL 81-99 [facility] Mean corpuscular hemoglobin (MCH) determinationOrdered By: Genevieve Wu on 06-30-2024 MCH (RBC) [Entitic mass] 25.7 pg Low 27.0-32.0 [facility] Mean corpuscular hemoglobin concentration (MCHC) determinationOrdered By: Genevieve Wu on 06-30-2024 MCHC (RBC) [Mass/Vol] 29.5 g/dL Low 32-36 [facility] Mean platelet volume determi nationOrdered By: Genevieve Wu on 06-30-2024 Platelet mean volume (Bld) [Entitic vol] 8.8 fL 6.2-12.0 [facility] Monocyte percentageOrdered B y: Genevieve Wu on 06-30-2024 Monocytes/100 WBC (Bld) 13.4 % High 0-10 [facility] Neutrophil percentageOrdered By: Genevieve Wu on 06-30-2024 Neutrophils/100 WBC (Bld) 59.3 % 47-70 [facility] Nucleated red blood cell per centageOrdered By: Genevieve Wu on 06-30-2024 Nucleated RBC/100 WBC (Bld) [Ratio] 0 % 0-5 [facility] Platelet countOrdered By: Abe Wu on 06-30-2024 Platelets (Bld) [#/Vol] 420 10*3/uL 150-450 [facility] Potassium measurementOrdered By: Genevieve Wu on 06-30-2024 Potassium [Moles/Vol] 4.3 mmol/L 3.5-5.1 [facility] RBC Auto (Bld) [#/Vol]Ordere d By: Genevieve Wu on 06-30-2024 RBC (Bld) [#/Vol] 3.73 10*6/uL Low 4.2-5.4 [facility] Serum anion gap measurementO rdered By: Genevieve Wu on 06-30-2024 Anion gap [Moles/Vol] 5 mmol/L 5-15 [facility] Serum or plasma calcium candice urement (mass/volume)Ordered By: Genevieve Wu on 06-30-2024 Calcium [Mass/Vol] 9.2 mg/dL 8.5-10.1 [facility] Serum or plasma creatinine m easurement (mass/volume)Ordered By: Genevieve Wu on 06-30-2024 Creatinine [Mass/Vol] 0.89 mg/dL 0.55-1.02 [facility] Comment on above: The validity of the calculated GFR & GFRAA in patients over 70 years has not been determined. Clinical correlation is essential. Serum or plasma urea nitroge n measurement (mass/volume)Ordered By: Genevieve Wu on 06-30-2024 Urea nitrogen [Mass/Vol] 24 mg/dL High 7-18 [facility] Sodium levelOrdered By: Gerardo kohlinick Jazmin on 06-30-2024 Sodium [Moles/Vol] 140 mmol/L 136-145 [facility] White blood cell (WBC) count Ordered By: Genevieve Wu on 06-30-2024 WBC (Bld) [#/Vol] 7.2 10*3/uL 4.4-11.0 [facility] ANCAon 06-16-2024 Atypical pANCA <1:20 Normal Neg:<1:20 [facility] Comment on above: Order Comment: PT. R EFUSED BLOOD DRAW. SON ASKED IF ID COME BACK LATER. Result Comment: The atypical pANCA pattern has been observed in asignificant percentage of patients with ulcerative colitis,primary sclerosing cholangitis and autoimmune hepatitis. Performed By: #### L 4600.0100, L505.7010, L3100.5450, L3300.1200, L3500.3600 ####[facility] [address] [place], [place], [id number] Cytoplasmic Ab <1:20 Normal Neg:<1:20 [facility] Comment on above: Order Comment: PT. R EFUSED BLOOD DRAW. SON ASKED IF ID COME BACK LATER. Performed By: #### L 4600.0100, L505.7010, L3100.5450, L3300.1200, L3500.3600 ####[facility] [address] [place], [address] Perinuclear Ab. <1:20 Normal Neg:<1:20 [facility] Comment on above: Order Comment: PT. [...] up testing of positive sera with both DE-3 and MPO-ANCA enzyme immunoassays. As many as 5% serumsamples are positive only by EIA. Ref. AM J Clin Fqepbl8763;111:507-513. Performed By: #### L 4600.0100, L505.7010, L3100.5450, L3300.1200, L3500.3600 ####[facility] [address] [place], [address] Aspergillus Antibodieson Asp. flavus Negative Normal Neg:<1:1 [facility] Comment on above: Order Comment: PT. R EFUSED BLOOD DRAW. SON ASKED IF ID COME BACK LATER. Performed By: #### L 4600.0100, L505.7010, L3100.5450, L3300.1200, L3500.3600 ####[facility] [address] [place], [address] Asp. fumigatus Negative Normal Neg:<1:1 [facility] Comment on above: Order Comment: PT. R EFUSED BLOOD DRAW. SON ASKED IF ID COME BACK LATER. Performed By: #### L 4600.0100, L505.7010, L3100.5450, L3300.1200, L3500.3600 ####[facility] [address] [place], [address] Asp. niger Negative Normal Neg:<1:1 [facility] Comment on above: Order Comment: PT. R EFUSED BLOOD DRAW. SON ASKED IF ID COME BACK LATER. Performed By: #### L 4600.0100, L505.7010, L3100.5450, L3300.1200, L3500.3600 ####[facility] [address] [place], [address] CCP IgG Antibodieson 025 CCP IgG Ab. 8 units Normal 0-19 [facility] Comment on above: Order Comment: PT. R EFUSED BLOOD DRAW. SON ASKED IF ID COME BACK LATER. Result Comment: Nega tive <20 Weak positive 20 - 39 Moderate positive 40 - 59 Strong positive >59Performed at: [facility] [email or web address] [id number] Director: Curtis Rubio PhD, Phone: [phone] at: [facility] [email or web address] [id number] Director: Angie Moulton MD, Phone: [phone] Performed By: #### L 4600.0100, L505.7010, L3100.5450, L3300.1200, L3500.3600 ####[facility] [address] [place], [address] Basic Metabolic Profile (BMP )on 06-15-2024 BUN Normal 7-18 [facility] Comment on above: Result Comment: Canc elled via OM: Order cancelled - Patient discharged Performed By: #### L 100.0100, L500.2500 ####[facility] [address] [place], [address] BUN/CRE Normal 10-20 [facility] Comment on above: Result Comment: Canc elled via OM: Order cancelled - Patient discharged Performed By: #### L 100.0100, L500.2500 ####[facility] [address] [place], [address] CA,Total Normal 8.5-10.1 [facility] Comment on above: Result Comment: Canc elled via OM: Order cancelled - Patient discharged Performed By: #### L 100.0100, L500.2500 ####[facility] [address] [place], [address] CL Normal 98-107 [facility] Comment on above: Result Comment: Canc elled via OM: Order cancelled - Patient discharged Performed By: #### L 100.0100, L500.2500 ####[facility] [address] [place], [address] CO2 Normal 21.0-32.0 [facility] Comment on above: Result Comment: Canc elled via OM: Order cancelled - Patient discharged Performed By: #### L 100.0100, L500.2500 ####[facility] [address] [place], [address] CREAT,SERUM Normal 0.55-1.02 [facility] Comment on above: Result Comment: Canc elled via OM: Order cancelled - Patient discharged Performed By: #### L 100.0100, L500.2500 ####[facility] [address] [place], [address] EST GFR Normal >60 [facility] Comment on above: Result Comment: Canc elled via OM: Order cancelled - Patient discharged Performed By: #### L 100.0100, L500.2500 ####[facility] [address] [place], [address] EST GFR - AA Normal >60 [facility] Comment on above: Result Comment: Canc elled via OM: Order cancelled - Patient discharged Performed By: #### L 100.0100, L500.2500 ####[facility] [address] [place], [address] GAP Normal 5-15 [facility] Comment on above: Result Comment: Canc elled via OM: Order cancelled - Patient discharged Performed By: #### L 100.0100, L500.2500 ####[facility] [address] [place], [address] GLU Normal 74-106 [facility] Comment on above: Result Comment: Canc elled via OM: Order cancelled - Patient discharged Performed By: #### L 100.0100, L500.2500 ####[facility] [address] [place], [address] Potassium Normal 3.5-5.1 [facility] Comment on above: Result Comment: Canc elled via OM: Order cancelled - Patient discharged Performed By: #### L 100.0100, L500.2500 ####[facility] [address] [place], [address] Basic Metabolic Profile (BMP) Normal 136-145 [facility] Comment on above: Result Comment: Canc elled via OM: Order cancelled - Patient discharged Performed By: #### L 100.0100, L500.2500 ####[facility] [address] [place], [address] CBC W/Diff, Automatedon 01-0 Absolute Neut Normal 2.0-7.7 [facility] Comment on above: Result Comment: Canc elled via OM: Order cancelled - Patient discharged Performed By: #### L 100.0100, L500.2500 ####[facility] [address] [place], [address] HCT Normal 37-47 [facility] Comment on above: Result Comment: Canc elled via OM: Order cancelled - Patient discharged Performed By: #### L 100.0100, L500.2500 ####[facility] [address] [place], [address] HGB Normal 12.0-15.0 [facility] Comment on above: Result Comment: Canc elled via OM: Order cancelled - Patient discharged Performed By: #### L 100.0100, L500.2500 ####[facility] [address] [place], [address] MCH Normal 27.0-32.0 [facility] Comment on above: Result Comment: Canc elled via OM: Order cancelled - Patient discharged Performed By: #### L 100.0100, L500.2500 ####[facility] [address] [place], [address] MCHC Normal 32-36 [facility] Comment on above: Result Comment: Canc elled via OM: Order cancelled - Patient discharged Performed By: #### L 100.0100, L500.2500 ####[facility] [address] [place], [address] MCV Normal 81-99 [facility] Comment on above: Result Comment: Canc elled via OM: Order cancelled - Patient discharged Performed By: #### L 100.0100, L500.2500 ####[facility] [address] [place], [address] NEUT% Normal 47-70 [facility] Comment on above: Result Comment: Canc elled via OM: Order cancelled - Patient discharged Performed By: #### L 100.0100, L500.2500 ####[facility] [address] [place], [address] PLT Normal 150-450 [facility] Comment on above: Result Comment: Canc elled via OM: Order cancelled - Patient discharged Performed By: #### L 100.0100, L500.2500 ####[facility] [address] [place], [address] RBC Normal 4.2-5.4 [facility] Comment on above: Result Comment: Canc elled via OM: Order cancelled - Patient discharged Performed By: #### L 100.0100, L500.2500 ####[facility] [address] [place], [address] RDW CV Normal 11.6-14.6 [facility] Comment on above: Result Comment: Canc elled via OM: Order cancelled - Patient discharged Performed By: #### L 100.0100, L500.2500 ####[facility] [address] [place], [address] RDW SD Normal 35.1-43.9 [facility] Comment on above: Result Comment: Canc elled via OM: Order cancelled - Patient discharged Performed By: #### L 100.0100, L500.2500 ####[facility] [address] [place], [address] WBC Normal 4.4-11.0 [facility] Comment on above: Result Comment: Canc elled via OM: Order cancelled - Patient discharged Performed By: #### L 100.0100, L500.2500 ####[facility] [address] [place], [address] Basic Metabolic Profile (BMP )on 06-14-2024 BUN/CRE 22.1 RATIO High 10-20 [facility] Comment on above: Performed By: #### L 100.0100, L500.2500 ####[facility] [address] [place], [address] CA,Total 9.2 mg/dL Normal 8.5-10.1 [facility] Comment on above: Performed By: #### L 100.0100, L500.2500 ####[facility] [address] [place], [address] Chloride [Moles/Vol] 104 mmol/L Normal 98-107 [facility].; [facility] Work Phone: Comment on above: Performed By: #### L 100.0100, L500.2500 ####[facility] [address] [place], [address] CO2 [Moles/Vol] 29.0 mmol/L Normal 21.0-32.0 [facility]; [facility] Work Phone: Comment on above: Performed By: #### L 100.0100, L500.2500 ####[facility] [address] [place], [address] Creatinine [Mass/Vol] 0.95 mg/dL Normal 0.55-1.02 [facility]; [facility] Work Phone: Comment on above: Result Comment: The validity of the calculated GFR GFRAA in patients over70 years has not been determined. Clinical correlation isessential. Performed By: #### L 100.0100, L500.2500 ####[facility] [address] [place], [address] ECRCL 32.19 ml/min Normal [facility]; [facility] Work Phone: Comment on above: Performed By: #### L 100.0100, L500.2500 ####[facility] [address] [place], [address] EST GFR - AA 72 mL/min Normal >60 [facility]; [facility] Work Phone: Comment on above: Result Comment: Afri can [place] GFR Calc Performed By: #### L 100.0100, L500.2500 ####[facility] [address] [place], [address] GAP 4 Low 5-15 [facility]; [facility] Work Phone: Comment on above: Performed By: #### L 100.0100, L500.2500 ####[facility] [address] [place], [address] GFR/1.73 sq M.predicted among non-blacks MDRD (S/P/Bld) [Vol rate/Area] 60 mL/min/{1.73_m2} Normal >60 [facility]; [facility] Work Phone: Comment on above: Result Comment: Non- GFR Calc Performed By: #### L 100.0100, L500.2500 ####[facility] [address] [place], [address] Glucose [Mass/Vol] 99 mg/dL Normal 74-106 [facility]; [facility] Work Phone: Comment on above: Performed By: #### L 100.0100, L500.2500 ####[facility] [address] [place], [address] Potassium [Moles/Vol] 3.2 mmol/L Low 3.5-5.1 [facility]; [facility] Work Phone: Comment on above: Performed By: #### L 100.0100, L500.2500 ####[facility] [address] [place], [address] Sodium [Moles/Vol] 137 mmol/L Normal 136-145 [facility]; [facility] Work Phone: Comment on above: Performed By: #### L 100.0100, L500.2500 ####[facility] [address] [place], [address] Urea nitrogen [Mass/Vol] 21 mg/dL High 7-18 [facility] Work Phone: Comment on above: Performed By: #### L 100.0100, L500.2500 ####[facility] [address] [place], [address] CBC W/Diff, Automatedon 12-3 Absolute Lymph 1.57 X10 3/uL Normal 0.83-4.51 [facility] Comment on above: Performed By: #### L 100.0100, L500.2500 ####[facility] [address] [place], [address] Absolute Neut 6.5 X10 3/uL Normal 2.0-7.7 [facility] Comment on above: Performed By: #### L 100.0100, L500.2500 ####[facility] [address] [place], [address] Basophils/100 WBC (Bld) 0.3 % Normal 0-1 [facility]; [facility] Work Phone: Comment on above: Performed By: #### L 100.0100, L500.2500 ####[facility] [address] [place], [address] Eosinophils/100 WBC (Bld) 1.8 % Normal 0-5 [facility]; [facility] Work Phone: Comment on above: Performed By: #### L 100.0100, L500.2500 ####[facility] [address] [place], [address] Erythrocyte distribution width (RBC) [Ratio] 14.3 % Normal 11.6-14.6 [facility]; [facility] Work Phone: Comment on above: Performed By: #### L 100.0100, L500.2500 ####[facility] [address] [place], [place], [phone] Hematocrit (Bld) [Volume fraction] 34.3 % Low 37-47 [facility].; [facility] Work Phone: Comment on above: Performed By: #### L 100.0100, L500.2500 ####[facility] [address] [facility] [place], [place], [id number] Hemoglobin (Bld) [Mass/Vol] 10.4 g/dL Low 12.0-15.0 [facility].; [facility] Work Phone: Comment on above: Performed By: #### L 100.0100, L500.2500 ####[facility] [address] [facility] [address] [place], [place], [id number] IG% 0.900 Normal 0.0-0.9 [facility]; [facility] Work Phone: Comment on above: Result Comment: IG% - Immature Granulocytes (promyelocytes, myelocytes andmetamyelocytes) > 1% indicates that a LEFT SHIFT is Present. Performed By: #### L 100.0100, L500.2500 ####[facility] [address] [place], [place], [phone] Lymphocytes/100 WBC (Bld) 16.3 % Low 19-41 [facility].; [facility] Work Phone: Comment on above: Performed By: #### L 100.0100, L500.2500 ####[facility] [address] [place], [address] MCH (RBC) [Entitic mass] 26.0 pg Low 27.0-32.0 [facility]; [facility] Work Phone: Comment on above: Performed By: #### L 100.0100, L500.2500 ####[facility] [address] [place], [address] MCHC (RBC) [Mass/Vol] 30.3 g/dL Low 32-36 [facility].; [facility] Work Phone: Comment on above: Performed By: #### L 100.0100, L500.2500 ####[facility] [address] [place], [address] MCV (RBC) [Entitic vol] 85.8 fL Normal 81-99 [facility]; [facility]. Work Phone: Comment on above: Performed By: #### L 100.0100, L500.2500 ####[facility] [address] [place], [address] Monocytes/100 WBC (Bld) 13.2 % High 0-10 [facility]; [facility]. Work Phone: Comment on above: Performed By: #### L 100.0100, L500.2500 ####[facility] [address] [place], [address] Neutrophils/100 WBC (Bld) 67.5 % Normal 47-70 [facility].; [facility] Work Phone: Comment on above: Performed By: #### L 100.0100, L500.2500 ####[facility] [address] [place], [address] Nucleated RBC (Bld) [#/Vol] 0 10*3/uL Normal 0-5 [facility]; [facility] Work Phone: Comment on above: Performed By: #### L 100.0100, L500.2500 ####[facility] [address] [place], [address] Platelet mean volume (Bld) [Entitic vol] 8.7 fL Normal 6.2-12.0 [facility]; [facility] Work Phone: Comment on above: Performed By: #### L 100.0100, L500.2500 ####[facility] [address] [place], [address] Platelets (Bld) [#/Vol] 401 10*3/uL Normal 150-450 [facility]; [facility] Work Phone: Comment on above: Performed By: #### L 100.0100, L500.2500 ####[facility] [address] [place], [address] RBC (Bld) [#/Vol] 4.00 10*6/uL Low 4.2-5.4 [facility]; [facility] Work Phone: Comment on above: Performed By: #### L 100.0100, L500.2500 ####[facility] [address] [place], [address] RDW SD 44.6 fL High 35.1-43.9 [facility]; [facility] Work Phone: Comment on above: Performed By: #### L 100.0100, L500.2500 ####[facility] [address] [facility] [place], [place], [id number] WBC (Bld) [#/Vol] 9.6 10*3/uL Normal 4.4-11.0 [facility] Work Phone: Comment on above: Performed By: #### L 100.0100, L500.2500 ####[facility] [address] [place], [place], [id number] Laboratory - Chemistry and C hemistry - challengeon 06-14-2024 Magnesium [Mass/Vol] 9.2 mg/dL Normal 8.5 - 1 0.1 mg/dL [facility] Work Phone: No Panel Informationon 06-14 Absolute Lymph 1.57 {X10_3/uL} Normal 0.83 - 4.51 {X10_3/uL} [facility]. Work Phone: Absolute Neut 6.5 {X10_3/uL} Normal 2.0 - 7.7 {X10_3/uL} [facility]. Work Phone: BUN/CRE 22.1 {RATIO} Abnormal 10 - 20 {RATIO} [facility]. Work Phone: MICHAEL w/ Reflex Mult Confirmon 06-13-2024 MICHAEL TABLE TNP Normal [facility] Comment on above: Order Comment: PT. R EFUSED BLOOD DRAW. SON ASKED IF ID COME BACK LATER. Performed By: #### L 4600.0100, L505.7010, L3100.5450, L3300.1200, L3500.3600 ####[facility] [address] [place], [place], [id number] 12 Lead EKGon 06-11-2024 12 Lead EKG Normal [facility] L501.4020on 06-11-2024 TROPONIN-I HS 25 pg/mL Normal 3.0-54.0 [facility].; [facility]. Work Phone: Comment on above: Order Comment: 'TROP ' Serial specimen #1, #2 or #3: 3 Result Comment: Plea se Note: New Test Units and Gender Specific Reference Ranges. For more information see Policy Stat Procedure [place] High Sensitivity Troponin (TNIH) and attachments. Performed By: #### L 501.4020 ####[facility] [address] [place], [place], [id number] TROPONIN-I HS 21 pg/mL Normal 3.0-54.0 [facility].; [facility]. Work Phone: Comment on above: Order Comment: 'TROP ' Serial specimen #1, #2 or #3: 2 Result Comment: Plea se Note: New Test Units and Gender Specific Reference Ranges. For more information see Policy Stat Procedure [place] High Sensitivity Troponin (TNIH) and attachments. Performed By: #### L 501.4020 ####[facility] [address] [place], [place], [phone] TROPONIN-I HS 23 pg/mL Normal 3.0-54.0 [facility].; [facility]. Work Phone: Comment on above: Order Comment: 'TROP ' Serial specimen #1, #2 or #3: 1 Result Comment: Plea se Note: New Test Units and Gender Specific Reference Ranges. For more information see Policy Stat Procedure [place] High Sensitivity Troponin (TNIH) and attachments. Performed By: #### L 501.4020 ####[facility] [address] [place], [address] No Panel Informationon 06-10 MICHAEL TABLE [facility], [facility].; [facility] Work Phone: MICHAEL,DIRECT Negative [facility].; [facility] Work Phone: ANTI-CENT B AB [facility].; [facility], [facility]. Work Phone: ANTI-DNA (DS)AB [facility].; [facility] Work Phone: ANTI-JULIA-1 [facility], [facility]. Work Phone: ANTI-SS-A [facility], [facility]. Work Phone: ANTI-SS-B [facility] Work Phone: ANTICHROMATIN [facility].; [facility], [facility]. Work Phone: ANTISCLERODERM [facility].; [facility], [facility]. Work Phone: Asp. flavus Negative [facility].; [facility], [facility]. Work Phone: Asp. fumigatus Negative [facility].; [facility] Work Phone: Asp. niger Negative Normal [facility].; [facility], [facility]. Work Phone: Atypical pANCA <1:20 Normal [facility].; [facility] Work Phone: CCP IgG Ab. 8 {units} Normal 0 - 19 {units} [facility].; [facility], [facility]. Work Phone: Cytoplasmic Ab <1:20 Normal [facility].; [facility], [facility]. Work Phone: Perinuclear Ab. <1:20 Normal [facility].; [facility], [facility]. Work Phone: ACCOUNTANCY PROFESSOR Ab Normal [facility].; [facility], [facility]. Work Phone: CORTES Ab Normal [facility].; [facility], [facility]. Work Phone: Quantiferon TB-Gold+on 06-10 QFT MITOGEN SARAH > 10.00 Normal . [facility] Comment on above: Performed By: #### L 3400.8000 ####[facility] [address] [place], [address] QFT NIL VALUE 0.08 IU/mL Normal . [facility] Comment on above: Performed By: #### L 3400.8000 ####[facility] [address] [place], [address] QFT TB GOLD+ Comment Normal . [facility] Comment on above: Result Comment: Sarmad [...] the test. Performed By: #### L 3400.8000 ####[facility] [address] [place], [address] QFT TB POS CRIT Negative Normal Negative [facility] Comment on above: Result Comment: No [...] the productionof interferon gamma. Chemiluminescence immunoassaymethodologyPerformed at: [facility] [id number] Director: Curtis Rubio PhD, Phone: [phone] Performed By: #### L 3400.8000 ####[facility] [address] [place], [address] QFT TB1+ AG SARAH 0.08 IU/mL Normal . [facility] Comment on above: Performed By: #### L 3400.8000 ####[facility] [address] [place], [address] QFT TB2+ AG SARAH 0.08 IU/mL Normal . [facility] Comment on above: Performed By: #### L 3400.8000 ####[facility] [address] [place], [address] Rheumatoid Factoron 1227-20 24 RHEUMATOID FAC < 10.0 Normal <15 [facility]; [facility] Work Phone: Comment on above: Order Comment: PT. R EFUSED BLOOD DRAW. SON ASKED IF ID COME BACK LATER.PT REFUSED BLOOD DRAW AT NOON. NURSE WAS INFORMED WILL ADDTO AM DRAW. Performed By: #### L 4600.0100, L505.7010, L3100.5450, L3300.1200, L3500.3600 ####[facility] [address] [place], [address] Consultation - Intensiviston 06-09-2024 Consultation - Microbiology Lab Assistant Normal [facility] Basic Metabolic Profile (BMP )on 06-08-2024 BUN/CRE 17.3 RATIO Normal 10-20 [facility] Comment on above: Performed By: #### L 501.5200, L300.3900, L501.2300, L500.2500, L100.0100, L501.9520, L500.3400, L500.4050 ####[facility] [address] [place], [place], [phone] CA,Total 8.6 mg/dL Normal 8.5-10.1 [facility] Comment on above: Performed By: #### L 501.5200, L300.3900, L501.2300, L500.2500, L100.0100, L501.9520, L500.3400, L500.4050 ####[facility] [address] [place], [place], [phone] Chloride [Moles/Vol] 105 mmol/L Normal 98-107 [facility]; [facility] Work Phone: Comment on above: Performed By: #### L 501.5200, L300.3900, L501.2300, L500.2500, L100.0100, L501.9520, L500.3400, L500.4050 ####[facility] [address] [place], [place], [phone] CO2 [Moles/Vol] 27.0 mmol/L Normal 21.0-32.0 [facility]; [facility] Work Phone: Comment on above: Performed By: #### L 501.5200, L300.3900, L501.2300, L500.2500, L100.0100, L501.9520, L500.3400, L500.4050 ####[facility] [address] [place], [place], [phone] Creatinine [Mass/Vol] 0.75 mg/dL Normal 0.55-1.02 [facility]; [facility] Work Phone: Comment on above: Result Comment: The validity of the calculated GFR GFRAA in patients over70 years has not been determined. Clinical correlation isessential. Performed By: #### L 501.5200, L300.3900, L501.2300, L500.2500, L100.0100, L501.9520, L500.3400, L500.4050 ####[facility] [address] [place], [address] ECRCL 38.23 ml/min Normal [facility]; [facility] Work Phone: Comment on above: Performed By: #### L 501.5200, L300.3900, L501.2300, L500.2500, L100.0100, L501.9520, L500.3400, L500.4050 ####[facility] [address] [place], [place], [phone] EST GFR - AA 94 mL/min Normal >60 [facility]; [facility] Work Phone: Comment on above: Result Comment: Afri can [place] GFR Calc Performed By: #### L 501.5200, L300.3900, L501.2300, L500.2500, L100.0100, L501.9520, L500.3400, L500.4050 ####[facility] [address] [place], [place], [phone] GAP 6 Normal 5-15 [facility]; [facility] Work Phone: Comment on above: Performed By: #### L 501.5200, L300.3900, L501.2300, L500.2500, L100.0100, L501.9520, L500.3400, L500.4050 ####[facility] [address] [place], [place], [phone] GFR/1.73 sq M.predicted among non-blacks MDRD (S/P/Bld) [Vol rate/Area] 78 mL/min/{1.73_m2} Normal >60 [facility]; [facility] Work Phone: Comment on above: Result Comment: Non- GFR Calc Performed By: #### L 501.5200, L300.3900, L501.2300, L500.2500, L100.0100, L501.9520, L500.3400, L500.4050 ####[facility] [address] [place], [address] Glucose [Mass/Vol] 84 mg/dL Normal 74-106 [facility]; [facility] Work Phone: Comment on above: Performed By: #### L 501.5200, L300.3900, L501.2300, L500.2500, L100.0100, L501.9520, L500.3400, L500.4050 ####[facility] [address] [place], [address] Potassium [Moles/Vol] 3.6 mmol/L Normal 3.5-5.1 [facility]; [facility] Work Phone: Comment on above: Performed By: #### L 501.5200, L300.3900, L501.2300, L500.2500, L100.0100, L501.9520, L500.3400, L500.4050 ####[facility] [address] [place], [place], [phone] Sodium [Moles/Vol] 138 mmol/L Normal 136-145 [facility]; [facility] Work Phone: Comment on above: Performed By: #### L 501.5200, L300.3900, L501.2300, L500.2500, L100.0100, L501.9520, L500.3400, L500.4050 ####[facility] [address] [place], [place], [phone] Urea nitrogen [Mass/Vol] 13 mg/dL Normal 7-18 [facility]; [facility] Work Phone: Comment on above: Performed By: #### L 501.5200, L300.3900, L501.2300, L500.2500, L100.0100, L501.9520, L500.3400, L500.4050 ####[facility] [address] [place], [place], [phone] CBC W/Diff, Automatedon 05-16 Absolute Lymph 1.28 X10 3/uL Normal 0.83-4.51 [facility] Comment on above: Performed By: #### L 501.5200, L300.3900, L501.2300, L500.2500, L100.0100, L501.9520, L500.3400, L500.4050 ####[facility] [address] [place], [address] Absolute Neut 3.9 X10 3/uL Normal 2.0-7.7 [facility] Comment on above: Performed By: #### L 501.5200, L300.3900, L501.2300, L500.2500, L100.0100, L501.9520, L500.3400, L500.4050 ####[facility] [address] [place], [place], [phone] Basophils/100 WBC (Bld) 0.3 % Normal 0-1 [facility]; [facility] Work Phone: Comment on above: Performed By: #### L 501.5200, L300.3900, L501.2300, L500.2500, L100.0100, L501.9520, L500.3400, L500.4050 ####[facility] [address] [place], [place], [phone] Eosinophils/100 WBC (Bld) 3.2 % Normal 0-5 [facility]; [facility] Work Phone: Comment on above: Performed By: #### L 501.5200, L300.3900, L501.2300, L500.2500, L100.0100, L501.9520, L500.3400, L500.4050 ####[facility] [address] [place], [place], [phone] Erythrocyte distribution width (RBC) [Ratio] 14.4 % Normal 11.6-14.6 [facility]; [facility] Work Phone: Comment on above: Performed By: #### L 501.5200, L300.3900, L501.2300, L500.2500, L100.0100, L501.9520, L500.3400, L500.4050 ####[facility] [address] [place], [place], [phone] Hematocrit (Bld) [Volume fraction] 31.3 % Low 37-47 [facility]; [facility] Work Phone: Comment on above: Performed By: #### L 501.5200, L300.3900, L501.2300, L500.2500, L100.0100, L501.9520, L500.3400, L500.4050 ####[facility] [address] [place], [address] Hemoglobin (Bld) [Mass/Vol] 9.4 g/dL Low 12.0-15.0 [facility]; [facility] Work Phone: Comment on above: Performed By: #### L 501.5200, L300.3900, L501.2300, L500.2500, L100.0100, L501.9520, L500.3400, L500.4050 ####[facility] [address] [place], [address] IG% 1.000 High 0.0-0.9 [facility]; [facility] Work Phone: Comment on above: Result Comment: IG% - Immature Granulocytes (promyelocytes, myelocytes andmetamyelocytes) > 1% indicates that a LEFT SHIFT is Present. Performed By: #### L 501.5200, L300.3900, L501.2300, L500.2500, L100.0100, L501.9520, L500.3400, L500.4050 ####[facility] [address] [place], [place], [phone] Lymphocytes/100 WBC (Bld) 20.7 % Normal 19-41 [facility]; [facility] Work Phone: Comment on above: Performed By: #### L 501.5200, L300.3900, L501.2300, L500.2500, L100.0100, L501.9520, L500.3400, L500.4050 ####[facility] [address] [place], [place], [phone] MCH (RBC) [Entitic mass] 25.5 pg Low 27.0-32.0 [facility]; [facility] Work Phone: Comment on above: Performed By: #### L 501.5200, L300.3900, L501.2300, L500.2500, L100.0100, L501.9520, L500.3400, L500.4050 ####[facility] [address] [place], [address] MCHC (RBC) [Mass/Vol] 30.0 g/dL Low 32-36 [facility]; [facility] Work Phone: Comment on above: Performed By: #### L 501.5200, L300.3900, L501.2300, L500.2500, L100.0100, L501.9520, L500.3400, L500.4050 ####[facility] [address] [place], [address] MCV (RBC) [Entitic vol] 84.8 fL Normal 81-99 [facility]; [facility] Work Phone: Comment on above: Performed By: #### L 501.5200, L300.3900, L501.2300, L500.2500, L100.0100, L501.9520, L500.3400, L500.4050 ####[facility] [address] [place], [place], [phone] Monocytes/100 WBC (Bld) 12.0 % High 0-10 [facility]; [facility] Work Phone: Comment on above: Performed By: #### L 501.5200, L300.3900, L501.2300, L500.2500, L100.0100, L501.9520, L500.3400, L500.4050 ####[facility] [address] [place], [place], [phone] Neutrophils/100 WBC (Bld) 62.8 % Normal 47-70 [facility]; [facility] Work Phone: Comment on above: Performed By: #### L 501.5200, L300.3900, L501.2300, L500.2500, L100.0100, L501.9520, L500.3400, L500.4050 ####[facility] [address] [place], [place], [phone] Nucleated RBC (Bld) [#/Vol] 0 10*3/uL Normal 0-5 [facility]; [facility] Work Phone: Comment on above: Performed By: #### L 501.5200, L300.3900, L501.2300, L500.2500, L100.0100, L501.9520, L500.3400, L500.4050 ####[facility] [address] [place], [address] Platelet mean volume (Bld) [Entitic vol] 8.9 fL Normal 6.2-12.0 [facility] [employer].; [facility]. Work Phone: Comment on above: Performed By: #### L 501.5200, L300.3900, L501.2300, L500.2500, L100.0100, L501.9520, L500.3400, L500.4050 ####[facility] [address] [place], [address] Platelets (Bld) [#/Vol] 342 10*3/uL Normal 150-450 [facility]; [facility] Work Phone: Comment on above: Performed By: #### L 501.5200, L300.3900, L501.2300, L500.2500, L100.0100, L501.9520, L500.3400, L500.4050 ####[facility] [address] [place], [address] RBC (Bld) [#/Vol] 3.69 10*6/uL Low 4.2-5.4 [facility].; [facility]. Work Phone: Comment on above: Performed By: #### L 501.5200, L300.3900, L501.2300, L500.2500, L100.0100, L501.9520, L500.3400, L500.4050 ####[facility] [address] [place], [address] RDW SD 44.8 fL High 35.1-43.9 [facility].; [facility]. Work Phone: Comment on above: Performed By: #### L 501.5200, L300.3900, L501.2300, L500.2500, L100.0100, L501.9520, L500.3400, L500.4050 ####[facility] [address] [place], [place], [phone] WBC (Bld) [#/Vol] 6.2 10*3/uL Normal 4.4-11.0 [facility]; [facility] Work Phone: Comment on above: Performed By: #### L 501.5200, L300.3900, L501.2300, L500.2500, L100.0100, L501.9520, L500.3400, L500.4050 ####[facility] [address] [place], [address] Comprehensive Metabolic Prof ilon 06-08-2024 Albumin/Globulin [Mass ratio] 0.7 {ratio} Low 0.9-2.4 [facility]; [facility] Work Phone: Comment on above: Performed By: #### L 501.5200, L300.3900, L501.2300, L500.2500, L100.0100, L501.9520, L500.3400, L500.4050 ####[facility] [address] [place], [place], [phone] Laboratory - Chemistry and C hemistry - challengeon 06-08-2024 Magnesium [Mass/Vol] 8.6 mg/dL Normal 8.5 - 1 0.1 mg/dL [facility]; [facility] Work Phone: Liver Profileon 06-08-2024 Albumin [Mass/Vol] 2.5 g/dL Low 3.2-5.0 [facility]; [facility] Work Phone: Comment on above: Performed By: #### L 501.5200, L300.3900, L501.2300, L500.2500, L100.0100, L501.9520, L500.3400, L500.4050 ####[facility] [address] [place], [place], [phone] ALK P 96 U/L Normal 45-117 [facility].; [facility]. Work Phone: Comment on above: Performed By: #### L 501.5200, L300.3900, L501.2300, L500.2500, L100.0100, L501.9520, L500.3400, L500.4050 ####[facility] [address] [place], [place], [phone] ALT [Catalytic activity/Vol] 17 U/L Normal 13-56 [facility].; [facility]. Work Phone: Comment on above: Performed By: #### L 501.5200, L300.3900, L501.2300, L500.2500, L100.0100, L501.9520, L500.3400, L500.4050 ####[facility] [address] [place], [place], [phone] AST [Catalytic activity/Vol] 15 U/L Normal 15-37 [facility].; [facility] Work Phone: Comment on above: Performed By: #### L 501.5200, L300.3900, L501.2300, L500.2500, L100.0100, L501.9520, L500.3400, L500.4050 ####[facility] [address] [place], [address] Bilirubin [Mass/Vol] 0.30 mg/dL Normal 0.20-1.00 [facility]; [facility] Work Phone: Comment on above: Result Comment: For patients on eltrombopag therapy, use of Dimension [place] TBIL is not recommended. Performed By: #### L 501.5200, L300.3900, L501.2300, L500.2500, L100.0100, L501.9520, L500.3400, L500.4050 ####[facility] [address] [facility] [place], [address] Bilirubin.direct [Mass/Vol] 0.09 mg/dL Normal 0.00-0.30 [facility]; [facility] Work Phone: Comment on above: Performed By: #### L 501.5200, L300.3900, L501.2300, L500.2500, L100.0100, L501.9520, L500.3400, L500.4050 ####[facility] [address] [place], [address] Globulin (S) [Mass/Vol] 3.4 g/dL Normal 2.2-4.2 [facility]; [facility] Work Phone: Comment on above: Performed By: #### L 501.5200, L300.3900, L501.2300, L500.2500, L100.0100, L501.9520, L500.3400, L500.4050 ####[facility] [address] [facility] [place], [phone] T PROT 5.9 g/dL Low 6.4-8.2 [facility]; [facility]. Work Phone: Comment on above: Performed By: #### L 501.5200, L300.3900, L501.2300, L500.2500, L100.0100, L501.9520, L500.3400, L500.4050 ####[facility] [address] [place], [place], [phone] Magnesiumon 06-08-2024 Magnesium [Mass/Vol] 1.9 mg/dL Normal 1.6-2.6 [facility].; [facility]. Work Phone: Comment on above: Performed By: #### L 501.5200, L300.3900, L501.2300, L500.2500, L100.0100, L501.9520, L500.3400, L500.4050 ####[facility] [address] [place], [place], [phone] No Panel Informationon 06-08 Absolute Lymph 1.28 {X10_3/uL} Normal 0.83 - 4.51 {X10_3/uL} [facility].; [facility], [facility]. Work Phone: Absolute Neut 3.9 {X10_3/uL} Normal 2.0 - 7.7 {X10_3/uL} [facility].; [facility]. Work Phone: BUN/CRE 17.3 {RATIO} Normal 10 - 20 {RATIO} [facility].; [facility]. Work Phone: QFT MITOGEN SARAH > 10.00 Normal [facility]. Work Phone: QFT NIL VALUE 0.08 {IU/mL} Normal [facility].; [facility], [facility]. Work Phone: QFT TB GOLD+ Comment Normal [facility].; [facility]. Work Phone: QFT TB POS CRIT Negative Normal [facility].; [facility]. Work Phone: QFT TB1+ AG SARAH 0.08 {IU/mL} Normal [facility].; [facility], [facility]. Work Phone: QFT TB2+ AG SARAH 0.08 {IU/mL} Normal [facility], [facility]. Work Phone: TSH 1.990 {uIU/mL} Normal 0.358 - 3.740 {uIU/mL} [facility].; [facility], [facility]. Work Phone: Phosphoruson 06-08-2024 Phosphate [Mass/Vol] 3.3 mg/dL Normal 2.5-4.9 [facility].; [facility]. Work Phone: Comment on above: Performed By: #### L 501.5200, L300.3900, L501.2300, L500.2500, L100.0100, L501.9520, L500.3400, L500.4050 ####[facility] [address] [place], [place], [phone] Prothrombin Time w/INRon INR Coag (PPP) [Relative time] 1.1 {INR} Normal [facility].; [facility], [facility]. Work Phone: Comment on above: Performed By: #### L 501.5200, L300.3900, L501.2300, L500.2500, L100.0100, L501.9520, L500.3400, L500.4050 ####[facility] [address] [place], [place], [phone] PT Coag (PPP) [Time] 13.7 s Normal 11.7-14.9 [facility]; [facility] Work Phone: Comment on above: Performed By: #### L 501.5200, L300.3900, L501.2300, L500.2500, L100.0100, L501.9520, L500.3400, L500.4050 ####[facility] [address] [place], [place], [phone] Thyroid Stim Hormone (TSH)on 06-08-2024 TSH 1.990 uIU/mL Normal 0.358-3.74 0 [facility] Comment on above: Performed By: #### L 501.5200, L300.3900, L501.2300, L500.2500, L100.0100, L501.9520, L500.3400, L500.4050 ####[facility] [address] [place], [place], [phone] 12 Lead EKGon 06-07-2024 12 Lead EKG Normal [facility] Basic Metabolic Profile (BMP )on 06-07-2024 BUN/CRE 14.4 RATIO Normal 10-20 [facility] Comment on above: Order Comment: 'TROP ' Serial specimen #1, #2 or #3: 1 Performed By: #### L 100.0100, L501.2450, L503.6005, L500.2500, L300.3900, L300.4310, L501.4020, L500.3400 ####[facility] [address] [place], [place], [phone] CA,Total 8.8 mg/dL Normal 8.5-10.1 [facility] Comment on above: Order Comment: 'TROP ' Serial specimen #1, #2 or #3: 1 Performed By: #### L 100.0100, L501.2450, L503.6005, L500.2500, L300.3900, L300.4310, L501.4020, L500.3400 ####[facility] [address] [place], [place], [phone] Chloride [Moles/Vol] 104 mmol/L Normal 98-107 [facility]; [facility] Work Phone: Comment on above: Order Comment: 'TROP ' Serial specimen #1, #2 or #3: 1 Performed By: #### L 100.0100, L501.2450, L503.6005, L500.2500, L300.3900, L300.4310, L501.4020, L500.3400 ####[facility] [address] [facility] [place], [address] CO2 [Moles/Vol] 28.0 mmol/L Normal 21.0-32.0 [facility]; [facility] Work Phone: Comment on above: Order Comment: 'TROP ' Serial specimen #1, #2 or #3: 1 Performed By: #### L 100.0100, L501.2450, L503.6005, L500.2500, L300.3900, L300.4310, L501.4020, L500.3400 ####[facility] [address] [facility] [place], [address] Creatinine [Mass/Vol] 0.97 mg/dL Normal 0.55-1.02 [facility]; [facility] Work Phone: Comment on above: Order Comment: 'TROP ' Serial specimen #1, #2 or #3: 1 Result Comment: The validity of the calculated GFR GFRAA in patients over70 years has not been determined. Clinical correlation isessential. Performed By: #### L 100.0100, L501.2450, L503.6005, L500.2500, L300.3900, L300.4310, L501.4020, L500.3400 ####[facility] [address] [place], [place], [phone] EST GFR - AA 71 mL/min Normal >60 [facility]; [facility] Work Phone: Comment on above: Order Comment: 'TROP ' Serial specimen #1, #2 or #3: 1 Result Comment: Afri can [place] GFR Calc Performed By: #### L 100.0100, L501.2450, L503.6005, L500.2500, L300.3900, L300.4310, L501.4020, L500.3400 ####[facility] [address] [place], [address] GAP 6 Normal 5-15 [facility]; [facility] Work Phone: Comment on above: Order Comment: 'TROP ' Serial specimen #1, #2 or #3: 1 Performed By: #### L 100.0100, L501.2450, L503.6005, L500.2500, L300.3900, L300.4310, L501.4020, L500.3400 ####[facility] [address] [place], [address] GFR/1.73 sq M.predicted among non-blacks MDRD (S/P/Bld) [Vol rate/Area] 58 mL/min/{1.73_m2} Low >60 [facility]; [facility] Work Phone: Comment on above: Order Comment: 'TROP ' Serial specimen #1, #2 or #3: 1 Result Comment: Non- GFR Calc Performed By: #### L 100.0100, L501.2450, L503.6005, L500.2500, L300.3900, L300.4310, L501.4020, L500.3400 ####[facility] [address] [place], [place], [phone] Glucose [Mass/Vol] 88 mg/dL Normal 74-106 [facility]; [facility] Work Phone: Comment on above: Order Comment: 'TROP ' Serial specimen #1, #2 or #3: 1 Performed By: #### L 100.0100, L501.2450, L503.6005, L500.2500, L300.3900, L300.4310, L501.4020, L500.3400 ####[facility] [address] [place], [phone] Potassium [Moles/Vol] 4.1 mmol/L Normal 3.5-5.1 [facility]; [facility] Work Phone: Comment on above: Order Comment: 'TROP ' Serial specimen #1, #2 or #3: 1 Result Comment: Slig ht Hemolysis, Result may be falsely increased. Performed By: #### L 100.0100, L501.2450, L503.6005, L500.2500, L300.3900, L300.4310, L501.4020, L500.3400 ####[facility] [address] [place], [place], [phone] Sodium [Moles/Vol] 138 mmol/L Normal 136-145 [facility]; [facility] Work Phone: Comment on above: Order Comment: 'TROP ' Serial specimen #1, #2 or #3: 1 Performed By: #### L 100.0100, L501.2450, L503.6005, L500.2500, L300.3900, L300.4310, L501.4020, L500.3400 ####[facility] [address] [place], [place], [phone] Urea nitrogen [Mass/Vol] 14 mg/dL Normal 7-18 [facility]; [facility] Work Phone: Comment on above: Order Comment: 'TROP ' Serial specimen #1, #2 or #3: 1 Performed By: #### L 100.0100, L501.2450, L503.6005, L500.2500, L300.3900, L300.4310, L501.4020, L500.3400 ####[facility] [address] [place], [place], [phone] Brain/Head without Contrasto n 06-07-2024 Brain/Head without Contrast Normal [facility] CBC W/Diff, Automatedon 05-16 PLT EST ADEQUATE Normal ADEQ [facility]; [facility] Work Phone: Comment on above: Performed By: #### L 100.0100, L501.2450, L503.6005, L500.2500, L300.3900, L300.4310, L501.4020, L500.3400 ####[facility] [address] [place], [place], [phone] Chest 1 View (Portable)on Chest 1 View (Portable) Normal [facility] Chest WITH Contraston 2023 Chest WITH Contrast Normal [facility] Emergency Department Summary on 06-07-2024 Emergency Department Summary Normal [facility] H AND P Exam - Hospitaliston 06-07-2024 H&P Exam - Hospitalist Normal [facility] L501.4020on 06-07-2024 TROPONIN-I HS 9 pg/mL Normal 3.0-54.0 [facility]; [facility] Work Phone: Comment on above: Order Comment: 'TROP ' Serial specimen #1, #2 or #3: 1 Result Comment: Plekali se Note: New Test Units and Gender Specific Reference Ranges. For more information see Policy Stat Procedure [place] High Sensitivity Troponin (TNIH) and attachments. Performed By: #### L 100.0100, L501.2450, L503.6005, L500.2500, L300.3900, L300.4310, L501.4020, L500.3400 ####[facility] [address], [place], [phone] Laboratory - Chemistry and C hemistry - challengeon 06-07-2024 Magnesium [Mass/Vol] 8.8 mg/dL Normal 8.5 - 1 0.1 mg/dL [facility]; [facility], [facility]. Work Phone: Laboratory - Hematology and Cell countson 06-07-2024 Basophils/100 WBC (Bld) 0.6 % Normal 0 - 1 [facility]. Work Phone: Eosinophils/100 WBC (Bld) 2.2 % Normal 0 - 5 [facility].; [facility]. Work Phone: Erythrocyte distribution width (RBC) [Ratio] 14.5 % Normal 11.6 - 14.6 [facility]; [facility] Work Phone: Hematocrit (Bld) [Volume fraction] 34.6 % Abnormal 37 - 47 [facility]; [facility] Work Phone: Hemoglobin (Bld) [Mass/Vol] 10.4 g/dL Abnormal 12.0 - 15.0 g/dL [facility]; [facility] Work Phone: Lymphocytes/100 WBC (Bld) 19.7 % Normal 19 - 41 [facility]; [facility] Work Phone: MCH (RBC) [Entitic mass] 25.7 pg Abnormal 27.0 - 32.0 pg [facility]; [facility] Work Phone: MCHC (RBC) [Mass/Vol] 30.1 g/dL Abnormal 32 - 3 6 g/dL [facility]; [facility] Work Phone: MCV (RBC) [Entitic vol] 85.6 fL Normal 81 - 99 fL [facility]; [facility] Work Phone: Monocytes/100 WBC (Bld) 11.0 % Abnormal 0 - 10 [facility]; [facility] Work Phone: Neutrophils/100 WBC (Bld) 65.9 % Normal 47 - 70 [facility]; [facility] Work Phone: Nucleated RBC (Bld) [#/Vol] 0 10*3/uL Normal 0 - 5 [facility]; [facility] Work Phone: Platelet mean volume (Bld) [Entitic vol] 9.8 fL Normal 6.2 - 12.0 fL [facility]; [facility] Work Phone: RBC (Bld) [#/Vol] 4.04 10*6/uL Abnormal 4.2 - 5.4 {M/mm3} [facility].; [facility]. Work Phone: WBC (Bld) [#/Vol] 6.4 10*3/uL Normal 4.4 - 11.0 K/mm3 [facility].; [facility]. Work Phone: Laboratory - Microbiology an d Antimicrobial susceptibilityon 06-07-2024 Bacteria identified Cx Nom (Unsp spec) 0 SEEN Normal [facility]; [facility]. Work Phone: Laboratory - Specimen inform ationon 06-07-2024 Clarity (U) Clear Normal [facility].; [facility]. Work Phone: Color (U) Yellow Normal [facility].; [facility]. Work Phone: Laboratory - Urinalysison Nitrite Ql (U) Negative Normal [facility].; [facility]. Work Phone: Lactic Acidon 06-07-2024 Lactate [Moles/Vol] 1.1 mmol/L Normal 0.4-1.9 [facility].; [facility]. Work Phone: Comment on above: Order Comment: Y Performed By: #### L 100.0100, L501.2450, L503.6005, L500.2500, L300.3900, L300.4310, L501.4020, L500.3400 ####[facility] [address] [place], [address] Lipaseon 06-07-2024 Lipase [Catalytic activity/Vol] 75 U/L Normal 13-75 [facility]; [facility] Work Phone: Comment on above: Order Comment: 'TROP ' Serial specimen #1, #2 or #3: 1 Result Comment: Jaguar leigh note:LIPASE revised reference range effective 22.New Lipase methodology. Expected to produce lower valuesthan the previous assay method.NEW Reference Range: 13 - 75 U/L Performed By: #### L 100.0100, L501.2450, L503.6005, L500.2500, L300.3900, L300.4310, L501.4020, L500.3400 ####[facility] [address] [facility] [place], [address] Liver Profileon 06-07-2024 Albumin [Mass/Vol] 2.7 g/dL Low 3.2-5.0 [facility] [employer]; [facility] Work Phone: Comment on above: Order Comment: 'TROP ' Serial specimen #1, #2 or #3: 1 Performed By: #### L 100.0100, L501.2450, L503.6005, L500.2500, L300.3900, L300.4310, L501.4020, L500.3400 ####[facility] [address] [place], [address] ALK P 106 U/L Normal 45-117 [facility]; [facility] Work Phone: Comment on above: Order Comment: 'TROP ' Serial specimen #1, #2 or #3: 1 Performed By: #### L 100.0100, L501.2450, L503.6005, L500.2500, L300.3900, L300.4310, L501.4020, L500.3400 ####[facility] [address] [place], [place], [phone] ALT [Catalytic activity/Vol] 18 U/L Normal 13-56 [facility]; [facility] Work Phone: Comment on above: Order Comment: 'TROP ' Serial specimen #1, #2 or #3: 1 Performed By: #### L 100.0100, L501.2450, L503.6005, L500.2500, L300.3900, L300.4310, L501.4020, L500.3400 ####[facility] [address] [place], [address] AST [Catalytic activity/Vol] 25 U/L Normal 15-37 [facility]; [facility] Work Phone: Comment on above: Order Comment: 'TROP ' Serial specimen #1, #2 or #3: 1 Result Comment: Slig ht Hemolysis, Result may be falsely increased. Performed By: #### L 100.0100, L501.2450, L503.6005, L500.2500, L300.3900, L300.4310, L501.4020, L500.3400 ####[facility] [address] [place], [address] Bilirubin [Mass/Vol] 0.40 mg/dL Normal 0.20-1.00 [facility]; [facility] Work Phone: Comment on above: Order Comment: 'TROP ' Serial specimen #1, #2 or #3: 1 Result Comment: For patients on eltrombopag therapy, use of Dimension [place] TBIL is not recommended. Performed By: #### L 100.0100, L501.2450, L503.6005, L500.2500, L300.3900, L300.4310, L501.4020, L500.3400 ####[facility] [address] [place], [address] Bilirubin.direct [Mass/Vol] 0.08 mg/dL Normal 0.00-0.30 [facility]; [facility] Work Phone: Comment on above: Order Comment: 'TROP ' Serial specimen #1, #2 or #3: 1 Performed By: #### L 100.0100, L501.2450, L503.6005, L500.2500, L300.3900, L300.4310, L501.4020, L500.3400 ####[facility] [address] [place], [address] Globulin (S) [Mass/Vol] 3.9 g/dL Normal 2.2-4.2 [facility]; [facility] Work Phone: Comment on above: Order Comment: 'TROP ' Serial specimen #1, #2 or #3: 1 Performed By: #### L 100.0100, L501.2450, L503.6005, L500.2500, L300.3900, L300.4310, L501.4020, L500.3400 ####[facility] [address] [place], [address] T PROT 6.6 g/dL Normal 6.4-8.2 [facility]; [facility] Work Phone: Comment on above: Order Comment: 'TROP ' Serial specimen #1, #2 or #3: 1 Performed By: #### L 100.0100, L501.2450, L503.6005, L500.2500, L300.3900, L300.4310, L501.4020, L500.3400 ####[facility] [address] [place], [address] M100.678on 06-07-2024 M100.678 Pending SARS-CoV-2 (COVID 19) A Positive A INFLUENZA A Negative INFLUENZA B Negative RSV PCR Negative SARS-CoV-2 (COVID 19 PCR) Normal [facility] Comment on above: Performed By: #### L 400.0001, M100.678 ####[facility] [address] [facility] [place], [address] M8200.1000on 06-07-2024 M8200.1000 Normal Reference Ran ge = Negative MRSA DNA Nose Ql ZAID+probe GeneXpert Instrument, PCR method MRSA PCR MRSA NEGATIVE Normal [facility] Comment on above: Performed By: #### M 8200.1000 ####[facility] [address] [facility] [place], [address] No Panel Informationon 06-07 Absolute Lymph 1.26 {X10_3/uL} Normal 0.83 - 4.51 {X10_3/uL} [facility]. Work Phone: Absolute Neut 4.2 {X10_3/uL} Normal 2.0 - 7.7 {X10_3/uL} [facility].; [facility]. Work Phone: BILIRUBIN URINE Negative Normal [facility].; [facility]. Work Phone: BUN/CRE 14.4 {RATIO} Normal 10 - 20 {RATIO} [facility].; [facility]. Work Phone: GLUCOSE, UR Normal Normal [facility].; [facility]. Work Phone: IG% 0.600 Normal 0.0 - 0.9 [facility]; [facility]. Work Phone: KETONE UR Negative Normal [facility]; [facility] Work Phone: LEUK ESTERASE Negative Normal [facility].; [facility]. Work Phone: M100.678 See Note Normal [facility].; [facility]. Work Phone: M8200.1000 See Note Normal [facility].; [facility]. Work Phone: OCCULT BLOOD-UR 10 /ul Abnormal [facility] Work Phone: pH UR 7.0 Normal 5.0 - 8.0 [facility]; [facility]. Work Phone: PLT Normal 150 - 450 K/mm3 [facility]; [facility] Work Phone: PROT DIPSTX Negative Normal [facility]; [facility] Work Phone: RDW SD 44.9 fL Abnormal 35.1 - 43.9 fL [facility]; [facility] Work Phone: SP.GR. DIPSTX 1.010 Normal 1.002 - 1.030 [facility]; [facility] Work Phone: UROBILI Normal Normal [facility]; [facility] Work Phone: Partial Thromboplast Timeon 06-07-2024 aPTT Coag (Bld) [Time] 21.3 s Low 24.1-36.2 [facility]; [facility] Work Phone: Comment on above: Performed By: #### L 100.0100, L501.2450, L503.6005, L500.2500, L300.3900, L300.4310, L501.4020, L500.3400 ####[facility] [address] [facility] [place], [address] Prothrombin Time w/INRon INR Coag (PPP) [Relative time] 0.9 {INR} Normal [facility]; [facility] Work Phone: Comment on above: Performed By: #### L 100.0100, L501.2450, L503.6005, L500.2500, L300.3900, L300.4310, L501.4020, L500.3400 ####[facility] [address] [facility] [place], [address] PT Coag (PPP) [Time] 12.2 s Normal 11.7-14.9 [facility]; [facility] Work Phone: Comment on above: Performed By: #### L 100.0100, L501.2450, L503.6005, L500.2500, L300.3900, L300.4310, L501.4020, L500.3400 ####[facility] [address] [facility] [place], [address] Urinalysis, Completeon 06-07 EPI,SQUAMOUS 0-5 SEEN Normal 5-10 [facility]; [facility] Work Phone: Comment on above: Order Comment: COLLE CTOR TO SPECIFY Performed By: #### L 400.0001, M100.678 ####[facility] [address] [place], [address] RBC 0-5 SEEN Normal 0-5 [facility]; [facility]. Work Phone: Comment on above: Order Comment: COLLE CTOR TO SPECIFY Performed By: #### L 400.0001, M100.678 ####[facility] [address] [place], [address] BACTERIA 0 SEEN Normal None Seen [facility] Comment on above: Order Comment: YA CTOR TO SPECIFY Performed By: #### L 400.0001, M100.678 ####[facility] [address] [place], [address] Mucus Ql (Urine sed) 0 SEEN Normal [facility]; [facility] Work Phone: Comment on above: Order Comment: YA CTOR TO SPECIFY Performed By: #### L 400.0001, M100.678 ####[facility] [address] [place], [address] WBC 0 SEEN Normal 0-5 [facility]; [facility] Work Phone: Comment on above: Order Comment: YA CTOR TO SPECIFY Performed By: #### L 400.0001, M100.678 ####[facility] [address] [place], [address] CBC W/Diff, Automatedon 12- Absolute Lymph 0.79 X10 3/uL Low 0.83-4.51 [facility] Comment on above: Performed By: #### L 100.0100, L500.4050, L503.6005 ####[facility] [address] [place], [address] Absolute Neut 3.5 X10 3/uL Normal 2.0-7.7 [facility] Comment on above: Performed By: #### L 100.0100, L500.4050, L503.6005 ####[facility] [address] [place], [address] Basophils/100 WBC (Bld) 0.6 % Normal 0-1 [facility]; [facility] Work Phone: Comment on above: Performed By: #### L 100.0100, L500.4050, L503.6005 ####[facility] [address] [place], [address] Eosinophils/100 WBC (Bld) 0.4 % Normal 0-5 [facility]; [facility] Work Phone: Comment on above: Performed By: #### L 100.0100, L500.4050, L503.6005 ####[facility] [address] [place], [address] Erythrocyte distribution width (RBC) [Ratio] 14.6 % Normal 11.6-14.6 [facility]; [facility] Work Phone: Comment on above: Performed By: #### L 100.0100, L500.4050, L503.6005 ####[facility] [address] [place], [address] Hematocrit (Bld) [Volume fraction] 35.5 % Low 37-47 [facility]; [facility] Work Phone: Comment on above: Performed By: #### L 100.0100, L500.4050, L503.6005 ####[facility] [address] [facility] [place], [place], [phone] Hemoglobin (Bld) [Mass/Vol] 10.5 g/dL Low 12.0-15.0 [facility]; [facility] Work Phone: Comment on above: Performed By: #### L 100.0100, L500.4050, L503.6005 ####[facility] [address] [facility]. [place], [place], [phone] IG% 0.400 Normal 0.0-0.9 [facility]; [facility] Work Phone: Comment on above: Result Comment: IG% - Immature Granulocytes (promyelocytes, myelocytes andmetamyelocytes) > 1% indicates that a LEFT SHIFT is Present. Performed By: #### L 100.0100, L500.4050, L503.6005 ####[facility] [address] [facility] [place], [place], [phone] Lymphocytes/100 WBC (Bld) 14.9 % Low 19-41 [facility]; [facility] Work Phone: Comment on above: Performed By: #### L 100.0100, L500.4050, L503.6005 ####[facility] [address] [facility]. [place], [place], [phone] MCH (RBC) [Entitic mass] 25.5 pg Low 27.0-32.0 [facility]; [facility] Work Phone: Comment on above: Performed By: #### L 100.0100, L500.4050, L503.6005 ####[facility] [address] [place], [address] MCHC (RBC) [Mass/Vol] 29.6 g/dL Low 32-36 [facility]; [facility] Work Phone: Comment on above: Performed By: #### L 100.0100, L500.4050, L503.6005 ####[facility] [address] [place], [address] MCV (RBC) [Entitic vol] 86.4 fL Normal 81-99 [facility]; [facility] Work Phone: Comment on above: Performed By: #### L 100.0100, L500.4050, L503.6005 ####[facility] [address] [place], [address] Monocytes/100 WBC (Bld) 18.6 % High 0-10 [facility]; [facility] Work Phone: Comment on above: Performed By: #### L 100.0100, L500.4050, L503.6005 ####[facility] [address] [place], [address] Neutrophils/100 WBC (Bld) 65.1 % Normal 47-70 [facility]; [facility] Work Phone: Comment on above: Performed By: #### L 100.0100, L500.4050, L503.6005 ####[facility] [address] [place], [address] Nucleated RBC (Bld) [#/Vol] 0 10*3/uL Normal 0-5 [facility]. Work Phone: Comment on above: Performed By: #### L 100.0100, L500.4050, L503.6005 ####[facility] [address] [place], [place], [phone] Platelet mean volume (Bld) [Entitic vol] 8.5 fL Normal 6.2-12.0 [facility].; [facility]. Work Phone: Comment on above: Performed By: #### L 100.0100, L500.4050, L503.6005 ####[facility] [address] [place], [place], [phone] Platelets (Bld) [#/Vol] 344 10*3/uL Normal 150-450 [facility].; [facility]. Work Phone: Comment on above: Performed By: #### L 100.0100, L500.4050, L503.6005 ####[facility] [address] [place], [place], [phone]) RBC (Bld) [#/Vol] 4.11 10*6/uL Low 4.2-5.4 [facility].; [facility]. Work Phone: Comment on above: Performed By: #### L 100.0100, L500.4050, L503.6005 ####[facility] [address] [place], [place], [phone] RDW SD 46.4 fL High 35.1-43.9 [facility].; [facility]. Work Phone: Comment on above: Performed By: #### L 100.0100, L500.4050, L503.6005 ####[facility] [address] [place], [address] WBC (Bld) [#/Vol] 5.3 10*3/uL Normal 4.4-11.0 [facility]. Work Phone: Comment on above: Performed By: #### L 100.0100, L500.4050, L503.6005 ####[facility] [address] [place], [address] Chest PA and Lateralon 05-30 Chest PA and Lateral Normal [facility] Comprehensive Metabolic Prof ilon 05-30-2024 Albumin [Mass/Vol] 3.0 g/dL Low 3.2-5.0 [facility] Work Phone: Comment on above: Performed By: #### L 100.0100, L500.4050, L503.6005 ####[facility] [address] [place], [address] Albumin/Globulin [Mass ratio] 0.8 {ratio} Low 0.9-2.4 [facility]; [facility]. Work Phone: Comment on above: Performed By: #### L 100.0100, L500.4050, L503.6005 ####[facility] [address] [place], [address] ALK P 124 U/L High 45-117 [facility]; [facility]. Work Phone: Comment on above: Performed By: #### L 100.0100, L500.4050, L503.6005 ####[facility] [address] [place], [address] ALT [Catalytic activity/Vol] 15 U/L Normal 13-56 [facility]; [facility] Work Phone: Comment on above: Performed By: #### L 100.0100, L500.4050, L503.6005 ####[facility] [address] [place], [address] AST [Catalytic activity/Vol] 22 U/L Normal 15-37 [facility]; [facility] Work Phone: Comment on above: Performed By: #### L 100.0100, L500.4050, L503.6005 ####[facility] [address] [place], [address] Bilirubin [Mass/Vol] 0.40 mg/dL Normal 0.20-1.00 [facility]; [facility] Work Phone: Comment on above: Result Comment: For patients on eltrombopag therapy, use of Dimension [place] TBIL is not recommended. Performed By: #### L 100.0100, L500.4050, L503.6005 ####[facility] [address] [place], [address] BUN/CRE 13.4 RATIO Normal 10-20 [facility] Comment on above: Performed By: #### L 100.0100, L500.4050, L503.6005 ####[facility] [address] [place], [address] CA,Total 8.9 mg/dL Normal 8.5-10.1 [facility] Comment on above: Performed By: #### L 100.0100, L500.4050, L503.6005 ####[facility] [address] [place], [address] Chloride [Moles/Vol] 105 mmol/L Normal 98-107 [facility]; [facility] Work Phone: Comment on above: Performed By: #### L 100.0100, L500.4050, L503.6005 ####[facility] [address] [place], [address] CO2 [Moles/Vol] 27.0 mmol/L Normal 21.0-32.0 [facility]; [facility] Work Phone: Comment on above: Performed By: #### L 100.0100, L500.4050, L503.6005 ####[facility] [address] [place], [address] Creatinine [Mass/Vol] 1.12 mg/dL High 0.55-1.02 [facility]; [facility] Work Phone: Comment on above: Result Comment: The validity of the calculated GFR GFRAA in patients over70 years has not been determined. Clinical correlation isessential. Performed By: #### L 100.0100, L500.4050, L503.6005 ####[facility] [address] [place], [address] EST GFR - AA 60 mL/min Normal >60 [facility]; [facility] Work Phone: Comment on above: Result Comment: Afri can [place] GFR Calc Performed By: #### L 100.0100, L500.4050, L503.6005 ####[facility] [address] [place], [place], [address] GAP 5 Normal 5-15 [facility]; [facility] Work Phone: Comment on above: Performed By: #### L 100.0100, L500.4050, L503.6005 ####[facility] [address] [place], [place], [address] GFR/1.73 sq M.predicted among non-blacks MDRD (S/P/Bld) [Vol rate/Area] 49 mL/min/{1.73_m2} Low >60 [facility]; [facility] Work Phone: Comment on above: Result Comment: Non- GFR Calc Performed By: #### L 100.0100, L500.4050, L503.6005 ####[facility] [address] [place], [place], [id number] Globulin (S) [Mass/Vol] 3.9 g/dL Normal 2.2-4.2 [facility]; [facility] Work Phone: Comment on above: Performed By: #### L 100.0100, L500.4050, L503.6005 ####[facility] [address] [place], [place], [phone] Glucose [Mass/Vol] 108 mg/dL High 74-106 [facility]; [facility] Work Phone: Comment on above: Result Comment: Fast ing Glucose result from 100 to 125 mg/dLsuggests IMPAIRED HOMEOSTASIS per A.D.A. criteria. Performed By: #### L 100.0100, L500.4050, L503.6005 ####[facility] [address] [place], [address] Potassium [Moles/Vol] 3.5 mmol/L Normal 3.5-5.1 [facility]; [facility] Work Phone: Comment on above: Performed By: #### L 100.0100, L500.4050, L503.6005 ####[facility] [address] [place], [address] Sodium [Moles/Vol] 137 mmol/L Normal 136-145 [facility]; [facility] Work Phone: Comment on above: Performed By: #### L 100.0100, L500.4050, L503.6005 ####[facility] [address] [place], [address] T PROT 6.9 g/dL Normal 6.4-8.2 [facility]; [facility] Work Phone: Comment on above: Performed By: #### L 100.0100, L500.4050, L503.6005 ####[facility] [address] [place], [address] Urea nitrogen [Mass/Vol] 15 mg/dL Normal 7-18 [facility]; [facility] Work Phone: Comment on above: Performed By: #### L 100.0100, L500.4050, L503.6005 ####[facility] [address] [place], [address] Emergency Department Summary on 05-30-2024 Emergency Department Summary Normal [facility] Laboratory - Chemistry and C hemistry - challengeon 05-30-2024 Magnesium [Mass/Vol] 30 mg/dL Abnormal [facility], [facility]. Work Phone: Magnesium [Mass/Vol] 8.9 mg/dL Normal 8.5 - 1 0.1 mg/dL [facility].; [facility] Work Phone: Laboratory - Microbiology an d Antimicrobial susceptibilityon 05-30-2024 Bacteria identified Cx Nom (Unsp spec) 1+ Normal [facility].; [facility], [facility]. Work Phone: Laboratory - Specimen inform ationon 05-30-2024 Clarity (U) Clear Normal [facility].; [facility], [facility]. Work Phone: Color (U) Yellow Normal [facility].; [facility] Work Phone: Laboratory - Urinalysison Nitrite Ql (U) Negative Normal [facility].; [facility], [facility]. Work Phone: Lactic Acidon 05-30-2024 Lactate [Moles/Vol] 1.6 mmol/L Normal 0.4-1.9 [facility].; [facility], [facility]. Work Phone: Comment on above: Order Comment: Y Performed By: #### L 100.0100, L500.4050, L503.6005 ####[facility] [address] [place], [address] No Panel Informationon 05-30 Absolute Lymph 0.79 {X10_3/uL} Abnormal 0.83 - 4.51 {X10_3/uL} [facility].; [facility], [facility]. Work Phone: Absolute Neut 3.5 {X10_3/uL} Normal 2.0 - 7.7 {X10_3/uL} [facility].; [facility]. Work Phone: BILIRUBIN URINE Negative Normal [facility].; [facility]. Work Phone: BUN/CRE 13.4 {RATIO} Normal 10 - 20 {RATIO} [facility].; [facility]. Work Phone: GLUCOSE, UR Normal Normal [facility].; [facility]. Work Phone: KETONE UR Negative Normal [facility].; [facility]. Work Phone: LEUK ESTERASE Negative Normal [facility].; [facility]. Work Phone: OCCULT BLOOD-UR Negative Normal [facility].; [facility]. Work Phone: pH UR 6.5 Normal 5.0 - 8.0 [facility].; [facility]. Work Phone: SP.GR. DIPSTX 1.010 Normal 1.002 - 1.030 [facility].; [facility]. Work Phone: UROBILI Normal Normal [facility].; [facility]. Work Phone: Urinalysis, Completeon 05-30 Mucus Ql (Urine sed) RARE Normal [facility].; [facility] Work Phone: Comment on above: Order Comment: CLEAN CATCH Performed By: #### L 400.0001 ####[facility] [address] [place], [address] BACTERIA 1+ /hpf Normal None Seen [facility] Comment on above: Order Comment: CLEAN CATCH Performed By: #### L 400.0001 ####[facility] [address] [place], [address] EPI,SQUAMOUS 0-5 SEEN Normal 5-10 [facility].; [facility], [employer]. Work Phone: Comment on above: Order Comment: CLEAN CATCH Performed By: #### L 400.0001 ####[facility] [address] [place], [address] WBC 0-5 SEEN Normal 0-5 [facility] Work Phone: Comment on above: Order Comment: CLEAN CATCH Performed By: #### L 400.0001 ####[facility] [address] [place], [address] RBC 0 SEEN Normal 0-5 [facility].; [facility]. Work Phone: Comment on above: Order Comment: CLEAN CATCH Performed By: #### L 400.0001 ####[facility] [address] [place], [address] OPERATIVE PROCEDURESon 02-15 OPERATIVE PROCEDURES [facility] OPERATIVE REPORT NAME ACCOUNT SEX AGE ADMIT DISCHARGE PT MED. RECORD# NUMBER DATE DATE TYPE SAPNA BULLARD [id number] F 84 02/05/24 2 [id number] ROOM: [facility] DATE OF : 1940 DICTATING PHYSICIAN: Marcos White DATE OF PROCEDURE: February 05, 2024 SURGEON: Marcos White DO ROOF BOLTER OPERATOR: None. ANESTHETIC: Local. PRE-PROCEDURE DIAGNOSES: (1) [...] Marcos White DO 02/05/24 12:03 JOB #: [id number] Transcribed By: tim 02/05/24 12:27 Electronically signed by: E-SIGN: MARCOS WHITE 02/16/24 07:40 Page 2 of 2 SAPNA BULLARD Operative Report Normal [facility] C-ARM USAGE 1 HOUR 024 C-ARM USAGE 1 HOUR [place] [address] Patient: SAPNA BULLARD. Phone#: : 1940 Age: 84 Gender: F Pt. Type: Out Account: [id number] Location: 2 Ordering: MARCOS WHITE Exam Date: 02/05/2024/11:01 Family Phys: NICCI LEMUS Charge Code: 544239 Physician: Cole Order #: [id number] Dose#: PROCEDURE: C-ARM USEAGE 1 HR COMPARISON: [facility], SX, C-ARM USEAGE 1 HR, 10/08/2023, 8:09. [...] Alston MD on 02/05/2024 at 16:03 Normal [facility] Automated blood erythrocyte count (number/volume)Ordered By: Vish Cook on 08-17-2023 RBC (Bld) [#/Vol] 4.32 10*6/uL Normal 4.2 - 5.4 {M/mm3} [facility] Automated blood hematocrit ( percentage)Ordered By: Vish Cook on 08-17-2023 Hematocrit (Bld) [Volume fraction] 37.9 % Normal 37 - 47 [facility] Basophil percentageOrdered B y: Vish Cook on 08-17-2023 Bilirubin [Mass/Vol] 0.30 mg/dL Normal 0.20 - 1.00 mg/dL [facility] Comment on above: For patients on eltr ombopag therapy, use of Dimension [place] TBIL is not recommended. Chloride [Moles/Vol] 104 mmol/L Normal 98 - 10 7 mmol/L [facility] Glucose [Mass/Vol] 92 mg/dL Normal 74 - 106 mg/dL [facility] Hemoglobin (Bld) [Mass/Vol] 11.7 g/dL Abnormal 12.0 - 15.0 g/dL [facility] Potassium [Moles/Vol] 3.9 mmol/L Normal 3.5 - 5.1 mmol/L [facility] Protein [Mass/Vol] 7.2 g/dL 6.4-8.2 [facility] Sodium [Moles/Vol] 138 mmol/L Normal 136 - 145 mmol/L [facility] WBC (Bld) [#/Vol] 11.0 10*3/uL Normal 4.4 - 11.0 K/mm3 [facility] Determination of erythrocyte mean corpuscular volume (MCV)Ordered By: Vish Cook on 08-17-2023 MCV (RBC) [Entitic vol] 87.7 fL Normal 81 - 99 fL [facility] Erythrocyte distribution wid th ratioOrdered By: Vish Cook on 08-17-2023 Erythrocyte distribution width (RBC) [Ratio] 14.7 % Abnormal 11.6 - 14.6 [facility] Erythrocyte distribution wid th standard deviationOrdered By: Vish Cook on 08-17-2023 Erythrocyte distribution width (RBC) [Entitic vol] 47.1 fL 35.1-43.9 [facility] Laboratory - Chemistry and C hemistry - challengeon 08-17-2023 Albumin [Mass/Vol] 3.0 g/dL Abnormal 3.2 - 5.0 g/dL [facility]; [facility] Work Phone: AST [Catalytic activity/Vol] 19 U/L Normal 15 - 37 U/L [facility]; [facility] Work Phone: GFR/1.73 sq M.predicted among non-blacks MDRD (S/P/Bld) [Vol rate/Area] 59 mL/min/{1.73_m2} Abnormal [facility]; [facility] Work Phone: Magnesium [Mass/Vol] 9.9 mg/dL Normal 8.5 - 1 0.1 mg/dL [facility]; [facility] Work Phone: Laboratory - Chemistry and C hemistry - challengeOrdered By: Vish Cook on 08-17-2023 Albumin/Globulin [Mass ratio] 0.7 {ratio} Abnormal 0.9 - 2.4 {RATIO} [facility] ALP [Catalytic activity/Vol] 138 U/L 45-117 [facility] ALT [Catalytic activity/Vol] 17 U/L Normal 13 - 56 U/L [facility] CO2 [Moles/Vol] 29.0 mmol/L Normal 21.0 - 32.0 mmol/L [facility] Globulin (S) [Mass/Vol] 4.2 g/dL Normal 2.2 - 4.2 g/dL [facility] Urea nitrogen/Creatinine [Mass ratio] 17.8 mg/mg - [facility] Laboratory - Hematology and Cell countsOrdered By: Vish Cook on 08-17-2023 MCH (RBC) [Entitic mass] 27.1 pg Normal 27.0 - 32.0 pg [facility] MCHC (RBC) [Mass/Vol] 30.9 g/dL Abnormal 32 - 3 6 g/dL [facility] Platelet mean volume (Bld) [Entitic vol] 8.6 fL Normal 6.2 - 12.0 fL [facility] Platelets (Bld) [#/Vol] 440 10*3/uL Normal 150 - 450 K/mm3 [facility] No Panel Informationon 08-16 ALK P 138 U/L Abnormal 45 - 117 U/L [facility]; [facility] Work Phone: BUN/CRE 17.8 {RATIO} Normal {RATIO} [facility]; [facility] Work Phone: EST GFR - AA 72 mL/min Normal [facility]; [facility] [employer] [facility] Work Phone: GAP 5 Normal 5 - 15 [facility]; [facility] [employer] [facility] Work Phone: RDW SD 47.1 fL Abnormal 35.1 - 43.9 fL [facility] [employer] [facility]; [employer] [facility] Work Phone: T PROT 7.2 g/dL Normal 6.4 - 8.2 g/dL [facility]; [facility] Work Phone: No Panel InformationOrdered By: Vish Cook on 08-17-2023 Estimated GFR (MDRD) Amer 72 mL/min >60 [facility] Comment on above: GFR Calc Estimated GFR (MDRD) Non-Af Amer 59 mL/min >60 [facility] Comment on above: Non- GFR Calc Serum or plasma calcium candice urement (mass/volume)Ordered By: Vish Cook on 08-17-2023 Calcium [Mass/Vol] 9.9 mg/dL 8.5-10.1 [facility] Serum or plasma creatinine m easurement (mass/volume)Ordered By: Vish Cook on 08-17-2023 Creatinine [Mass/Vol] 0.96 mg/dL Normal 0.55 - 1.02 mg/dL [facility] Comment on above: The validity of the calculated GFR & GFRAA in patients over 70 years has not been determined. Clinical correlation is essential. Serum or plasma urea nitroge n measurement (mass/volume)Ordered By: Vish Cook on 08-17-2023 Urea nitrogen [Mass/Vol] 17 mg/dL Normal 7 - 18 mg/dL [facility] Thin prep Papanicolaou smear with manual screeningOrdered By: Vish Cook on 08-17-2023 Thin prep Papanicolaou smear with manual screening 3.0 g/dL 3.2-5.0 [facility] Thin prep Papanicolaou smear with manual screening 19 U/L 15-37 [facility] Thin prep Papanicolaou smear with manual screening 5 5-15 [facility] Basophil percentageOrdered B y: Vish Cook on 08-14-2023 Basophil percentage 0 SEEN /hpf 0-5 [facility] Bilirubin Test strip Ql (U)O rdered By: Vish Cook on 08-14-2023 Bilirubin Ql (U) Negative Negative [facility] Culture, urineOrdered By: Ra destinee Cook on 08-14-2023 Bacteria identified Cx Nom (U) Culture exhibits no growth. [facility] Ketones Test strip Ql (U)Ord ered By: Vish Cook on 08-14-2023 Ketones Ql (U) Negative Negative [facility] Laboratory - Microbiology an d Antimicrobial susceptibilityon 08-14-2023 Bacteria identified Cx Nom (Unsp spec) 0 SEEN Normal [facility]. Work Phone: Laboratory - Urinalysison Mucus Ql (Urine sed) 0 SEEN Normal [facility].; [facility], [facility]. Work Phone: Mucus LM Ql (Urine sed)Order ed By: Vish Cook on 08-14-2023 Mucus Ql (Urine sed) 0 SEEN /hpf [facility] Nitrite ur dipstickOrdered B y: Vish Cook on 08-14-2023 Nitrite Ql (U) Negative Normal [facility] No Panel InformationOrdered By: Vish Cook on 08-14-2023 Urine RBC 0 SEEN /hpf 0-5 [facility] No Panel Informationon 08-13 BILIRUBIN URINE Negative Normal [facility].; [facility]. Work Phone: EPI,SQUAMOUS 0 SEEN Normal 5 - 10 {/hpf} [facility]. Work Phone: GLUCOSE, UR Normal Normal [facility].; [facility]. Work Phone: KETONE UR Negative Normal [facility].; [facility]. Work Phone: LEUK ESTERASE Negative Normal [facility]. Work Phone: OCCULT BLOOD-UR Negative Normal [facility].; [facility] Work Phone: pH UR 5.0 Normal 5.0 - 8.0 [facility]; [facility] Work Phone: PROT DIPSTX Negative Normal [facility]; [facility]. Work Phone: RBC 0 SEEN Normal 0 - 5 {/hpf} [facility]; [facility] Work Phone: SP.GR. DIPSTX 1.010 Normal 1.002 - 1.030 [facility]; [facility] Work Phone: URC See Note Normal [facility]; [facility] Work Phone: UROBILI Normal Normal [facility]; [facility] Work Phone: WBC 0 SEEN Normal 0 - 5 {/hpf} [facility]; [facility] Work Phone: Protein Test strip Ql (U)Ord ered By: Vish Cook on 08-14-2023 Protein Ql (U) Negative Negative [facility] Squamous epithelial cells de tection in urine sediment by light microscopyOrdered By: Vish Cook on 08-14-2023 Epithelial cells.squamous LM Ql (Urine sed) 0 SEEN /hpf 5-10 [facility] Urine blood detectionOrdered By: Vish Cook on 08-14-2023 RBC Ql (U) Negative Negative [facility] Urine clarityOrdered By: Vahe Cook on 08-14-2023 Clarity (U) Clear Normal [facility] Urine color determinationOrd ered By: Vish Cook on 08-14-2023 Color (U) Yellow Normal [facility] Urine glucose detectionOrder ed By: Vish Cook on 08-14-2023 Glucose Ql (U) Normal mg/dl Normal [facility] Urine leukocyte esterase det ection by dipstickOrdered By: Vish Cook on 08-14-2023 Leukocyte esterase Test strip Ql (U) Negative Negative [facility] Urine pHOrdered By: Vish Cook on 08-14-2023 pH (U) 5.0 [pH] 5.0 - 8.0 [facility] Urine sediment bacteria coun t by microscopy (number/high power field)Ordered By: Vish Cook on 08-14-2023 Bacteria LM.HPF (Urine sed) [#/Area] 0 /[HPF] None Seen [facility] Urine specific gravity measu rementOrdered By: Vish Cook on 08-14-2023 Specific gravity (U) [Rel density] 1.010 1.002-1.03 0 [facility] Urine urobilinogen measureme ntOrdered By: Vish Cook on 08-14-2023 Urobilinogen Ql (U) Normal mg/dl Normal [facility] Basophil percentageOrdered B y: Vish Cook on 05-25-2023 Potassium [Moles/Vol] 3.8 mmol/L Normal 3.5 - 5.1 mmol/L [facility] Absolute lymphocyte countOrd ered By: Pravin Cruz on 04-20-2023 Lymphocytes Auto (Unsp spec) [#/Vol] 1.38 10*3/uL 0.83-4.51 [facility] Automated blood hematocrit ( percentage)Ordered By: Pravin Cruz on 04-20-2023 Hematocrit (Bld) [Volume fraction] 31.2 % Abnormal 37 - 47 [facility] Basophil percentageOrdered B y: Pravin Cruz on 04-20-2023 Basophils/100 WBC (Bld) 0.3 % Normal 0 - 1 [facility] Chloride [Moles/Vol] 103 mmol/L Normal 98 - 10 7 mmol/L [facility] Eosinophils/100 WBC (Bld) 1.0 % Normal 0 - 5 [facility] Glucose [Mass/Vol] 92 mg/dL Normal 74 - 106 mg/dL [facility] Neutrophils (Bld) [#/Vol] 5.2 10*3/uL 2.0-7.7 [facility] Neutrophils/100 WBC (Bld) 65.0 % Normal 47 - 70 [facility] Potassium [Moles/Vol] 3.2 mmol/L Abnormal 3.5 - 5.1 mmol/L [facility] Sodium [Moles/Vol] 135 mmol/L Abnormal 136 - 145 mmol/L [facility] WBC (Bld) [#/Vol] 8.0 10*3/uL Normal 4.4 - 11.0 K/mm3 [facility] Blood erythrocytes count (nu mber/volume)Ordered By: Pravin Cruz on 04-20-2023 RBC (Bld) [#/Vol] 3.61 10*6/uL Abnormal 4.2 - 5.4 {M/mm3} [facility] Blood hemoglobin measurement (mass/volume)Ordered By: Pravin Cruz on 04-20-2023 Hemoglobin (Bld) [Mass/Vol] 10.0 g/dL Abnormal 12.0 - 15.0 g/dL [facility] Blood lymphocytes/100 leukoc ytesOrdered By: Pravin Cruz on 04-20-2023 Lymphocytes/100 WBC (Bld) 17.3 % Abnormal 19 - 41 [facility] Blood monocytes/100 leukocyt esOrdered By: Pravin Cruz on 04-20-2023 Monocytes/100 WBC (Bld) 16.0 % Abnormal 0 - 10 [facility] Blood platelet mean volumeOr dered By: Pravin Cruz on 04-20-2023 Platelet mean volume (Bld) [Entitic vol] 9.1 fL Normal 6.2 - 12.0 fL [facility] Determination of erythrocyte mean corpuscular volume (MCV)Ordered By: Pravin Cruz on 04-20-2023 MCV (RBC) [Entitic vol] 86.4 fL Normal 81 - 99 fL [facility] Laboratory - Chemistry and C hemistry - challengeon 04-20-2023 GFR/1.73 sq M.predicted among non-blacks MDRD (S/P/Bld) [Vol rate/Area] 71 mL/min/{1.73_m2} Normal [facility]; [facility] Work Phone: Magnesium [Mass/Vol] 8.2 mg/dL Abnormal 8.5 - 1 0.1 mg/dL [facility]; [facility] Work Phone: Laboratory - Chemistry and C hemistry - challengeOrdered By: Pravin Cruz on 04-20-2023 CO2 [Moles/Vol] 25.0 mmol/L Normal 21.0 - 32.0 mmol/L [facility] Urea nitrogen/Creatinine [Mass ratio] 19.6 mg/mg 10-20 [facility] Laboratory - Hematology and Cell countson 04-20-2023 Nucleated RBC (Bld) [#/Vol] 0 10*3/uL Normal 0 - 5 [facility]; [facility] Work Phone: Laboratory - Hematology and Cell countsOrdered By: Pravin Cruz on 04-20-2023 Erythrocyte distribution width (RBC) [Entitic vol] 42.5 fL 35.1-43.9 [facility] Erythrocyte distribution width (RBC) [Ratio] 13.4 % Normal 11.6 - 14.6 [facility] Immature granulocytes/100 WBC (Bld) 0.400 % 0.0-0.9 [facility] Comment on above: IG% - Immature Granu locytes (promyelocytes, myelocytes and metamyelocytes) > 1% indicates that a LEFT SHIFT is Present. MCH (RBC) [Entitic mass] 27.7 pg Normal 27.0 - 32.0 pg [facility] Nucleated RBC/100 WBC (Bld) [Ratio] 0 % 0-5 [facility] MCHC [Mass/volume] by Automa jose maria countOrdered By: Pravin Cruz on 04-20-2023 MCHC (RBC) [Mass/Vol] 32.1 g/dL Normal 32 - 3 6 g/dL [facility] No Panel Informationon 04-20 Absolute Lymph 1.38 {X10_3/uL} Normal 0.83 - 4.51 {X10_3/uL} [facility].; [facility], [employer] Work Phone: Absolute Neut 5.2 {X10_3/uL} Normal 2.0 - 7.7 {X10_3/uL} [facility].; [facility]. Work Phone: BUN/CRE 19.6 {RATIO} Normal 10 - 20 {RATIO} [facility].; [facility], [employer]. Work Phone: ECRCL 41.00 ml/min Normal [facility].; [facility] [employer] [facility]. Work Phone: EST GFR - AA 86 mL/min Normal [facility].; [facility]. Work Phone: GAP 7 Normal 5 - 15 [facility].; [facility] [employer] [facility] Work Phone: IG% 0.400 Normal 0.0 - 0.9 [facility] [employer] [facility].; [facility] [employer] [facility]. Work Phone: RDW SD 42.5 fL Normal 35.1 - 43.9 fL [facility] [employer] [facility].; [facility] [employer] [facility] [employer]. Work Phone: No Panel InformationOrdered By: Pravin Cruz on 04-20-2023 Estimated Creatinine Clearance Calc 41.00 ml/min [facility] Estimated GFR (MDRD) Amer 86 mL/min >60 [facility] Comment on above: GFR Calc Estimated GFR (MDRD) Non-Af Amer 71 mL/min >60 [facility] Comment on above: Non- GFR Calc Platelets bldOrdered By: Salnias Cruz on 04-20-2023 Platelets (Bld) [#/Vol] 291 10*3/uL Normal 150 - 450 K/mm3 [facility] Serum or plasma calcium candice urement (mass/volume)Ordered By: Pravin Cruz on 04-20-2023 Calcium [Mass/Vol] 8.2 mg/dL 8.5-10.1 [facility] Serum or plasma creatinine m easurement (mass/volume)Ordered By: Pravin Cruz on 04-20-2023 Creatinine [Mass/Vol] 0.82 mg/dL Normal 0.55 - 1.02 mg/dL [facility] Comment on above: The validity of the calculated GFR & GFRAA in patients over 70 years has not been determined. Clinical correlation is essential. Serum or plasma urea nitroge n measurement (mass/volume)Ordered By: Pravin Cruz on 04-20-2023 Urea nitrogen [Mass/Vol] 16 mg/dL Normal 7 - 18 mg/dL [facility] Thin prep Papanicolaou smear with manual screeningOrdered By: Pravin Cruz on 04-20-2023 Thin prep Papanicolaou smear with manual screening 7 5-15 [facility] Basophil percentageOrdered B y: Karon White on 04-17-2023 Bilirubin [Mass/Vol] 0.40 mg/dL Normal 0.20 - 1.00 mg/dL [facility] Comment on above: For patients on eltr ombopag therapy, use of Dimension [place] TBIL is not recommended. Protein [Mass/Vol] 5.8 g/dL 6.4-8.2 [facility] Culture, urineOrdered By: Do art Cohen on 04-17-2023 Bacteria identified Cx Nom (U) Presumptive E. coli [facility] Laboratory - Chemistry and C hemistry - challengeon 04-17-2023 AST [Catalytic activity/Vol] 16 U/L Normal 15 - 37 U/L [facility]. Work Phone: Chloride [Moles/Vol] 108 mmol/L Abnormal 98 - 10 7 mmol/L [facility]; [facility] Work Phone: CO2 [Moles/Vol] 25.0 mmol/L Normal 21.0 - 32.0 mmol/L [facility]; [facility] Work Phone: Creatinine [Mass/Vol] 0.88 mg/dL Normal 0.55 - 1.02 mg/dL [facility]; [facility] Work Phone: GFR/1.73 sq M.predicted among non-blacks MDRD (S/P/Bld) [Vol rate/Area] 66 mL/min/{1.73_m2} Normal [facility]; [facility] Work Phone: Glucose [Mass/Vol] 86 mg/dL Normal 74 - 106 mg/dL [facility]; [facility] Work Phone: Magnesium [Mass/Vol] 7.9 mg/dL Abnormal 8.5 - 1 0.1 mg/dL [facility]; [facility] Work Phone: Potassium [Moles/Vol] 3.8 mmol/L Normal 3.5 - 5.1 mmol/L [facility]; [facility] Work Phone: Sodium [Moles/Vol] 138 mmol/L Normal 136 - 145 mmol/L [facility]; [facility] Work Phone: Urea nitrogen [Mass/Vol] 10 mg/dL Normal 7 - 18 mg/dL [facility]; [facility] Work Phone: Laboratory - Chemistry and C hemistry - challengeOrdered By: Karon Nunes on 04-17-2023 ALP [Catalytic activity/Vol] 101 U/L 45-117 [facility] ALT [Catalytic activity/Vol] 12 U/L Abnormal 13 - 56 U/L [facility] Globulin (S) [Mass/Vol] 3.3 g/dL Normal 2.2 - 4.2 g/dL [facility] Laboratory - Hematology and Cell countson 04-17-2023 Basophils/100 WBC (Bld) 0.6 % Normal 0 - 1 [facility]; [facility] Work Phone: Eosinophils/100 WBC (Bld) 0.6 % Normal 0 - 5 [facility]; [facility] Work Phone: Erythrocyte distribution width (RBC) [Ratio] 13.3 % Normal 11.6 - 14.6 [facility]; [facility] Work Phone: Hematocrit (Bld) [Volume fraction] 32.4 % Abnormal 37 - 47 [facility]; [facility] Work Phone: Hemoglobin (Bld) [Mass/Vol] 9.9 g/dL Abnormal 12.0 - 15.0 g/dL [facility]; [facility] Work Phone: Lymphocytes/100 WBC (Bld) 13.6 % Abnormal 19 - 41 [facility]; [facility] Work Phone: MCH (RBC) [Entitic mass] 27.3 pg Normal 27.0 - 32.0 pg [facility]; [facility] Work Phone: MCHC (RBC) [Mass/Vol] 30.6 g/dL Abnormal 32 - 3 6 g/dL [facility]; [facility] Work Phone: MCV (RBC) [Entitic vol] 89.5 fL Normal 81 - 99 fL [facility]; [facility] Work Phone: Monocytes/100 WBC (Bld) 11.3 % Abnormal 0 - 10 [facility]; [facility]. Work Phone: Neutrophils/100 WBC (Bld) 73.6 % Abnormal 47 - 70 [facility]; [facility]. Work Phone: Nucleated RBC (Bld) [#/Vol] 0 10*3/uL Normal 0 - 5 [facility]; [facility] Work Phone: Platelet mean volume (Bld) [Entitic vol] 9.0 fL Normal 6.2 - 12.0 fL [facility]; [facility]. Work Phone: Platelets (Bld) [#/Vol] 302 10*3/uL Normal 150 - 450 K/mm3 [facility]; [facility] Work Phone: RBC (Bld) [#/Vol] 3.62 10*6/uL Abnormal 4.2 - 5.4 {M/mm3} [facility]; [facility] Work Phone: WBC (Bld) [#/Vol] 6.9 10*3/uL Normal 4.4 - 11.0 K/mm3 [facility]; [facility] Work Phone: No Panel Informationon 04-17 Absolute Lymph 0.94 {X10_3/uL} Normal 0.83 - 4.51 {X10_3/uL} [facility]; [facility]. Work Phone: Absolute Neut 5.1 {X10_3/uL} Normal 2.0 - 7.7 {X10_3/uL} [facility]. Work Phone: ALK P 101 U/L Normal 45 - 117 U/L [facility].; [facility]. Work Phone: BUN/CRE 11.4 {RATIO} Normal 10 - 20 {RATIO} [facility].; [facility]. Work Phone: ECRCL 37.44 ml/min Normal [facility].; [facility]. Work Phone: EST GFR - AA 79 mL/min Normal [facility].; [facility]. Work Phone: GAP 5 Normal 5 - 15 [facility]; [facility], [facility]. Work Phone: IG% 0.300 Normal 0.0 - 0.9 [facility]; [facility] Work Phone: RDW SD 43.8 fL Normal 35.1 - 43.9 fL [facility].; [facility] Work Phone: T PROT 5.8 g/dL Abnormal 6.4 - 8.2 g/dL [facility].; [facility], [facility]. Work Phone: No Panel InformationOrdered By: Karon Nunes on 04-17-2023 Streptococcus pneumoniae Antigen ([facility] Respiratory pathogens detect ion panel by molecular detection methodOrdered By: Karon Nunes on 04-17-2023 Respiratory pathogens DNA and RNA panel ZAID+probe (Resp) [facility] Serum or plasma albumin candice urement (mass/volume)Ordered By: Karon Nunes on 04-17-2023 Albumin [Mass/Vol] 2.5 g/dL Abnormal 3.2 - 5.0 g/dL [facility] Serum or plasma albumin/glob ulin mass ratioOrdered By: Karon Manju on 04-17-2023 Albumin/Globulin [Mass ratio] 0.8 {ratio} Abnormal 0.9 - 2.4 {RATIO} [facility] Thin prep Papanicolaou smear with manual screeningOrdered By: Karon Nunes on 04-17-2023 Thin prep Papanicolaou smear with manual screening 16 U/L 15-37 [facility] Urine Legionella pneumophila antigen detectionOrdered By: Karon Nunes on 04-17-2023 L. pneumophila Ag Ql (U) [facility] Basophil percentageOrdered B y: Nicholas Cohen on 04-16-2023 Basophil percentage 10-25 SEEN /hpf 0-5 [facility] Bilirubin Test strip Ql (U)O rdered By: Nicholas Cohen on 04-16-2023 Bilirubin Ql (U) Negative Negative [facility] Ketones Test strip Ql (U)Ord ered By: Nicholas Cohen on 04-16-2023 Ketones Ql (U) Negative Negative [facility] Laboratory - Chemistry and C hemistry - challengeOrdered By: Karon Nunes on 04-16-2023 Magnesium [Mass/Vol] 2.0 mg/dL Normal 1.6 - 2 .6 mg/dL [facility] - Chemistry and C hemistry - challengeon 04-16-2023 Albumin [Mass/Vol] 3.1 g/dL Abnormal 3.2 - 5.0 g/dL [facility]; [facility] Work Phone: Albumin/Globulin [Mass ratio] 0.8 {ratio} Abnormal 0.9 - 2.4 {RATIO} [facility]; [facility] Work Phone: ALT [Catalytic activity/Vol] 17 U/L Normal 13 - 56 U/L [facility]; [facility] Work Phone: AST [Catalytic activity/Vol] 18 U/L Normal 15 - 37 U/L [facility]; [facility] Work Phone: Bilirubin [Mass/Vol] 0.50 mg/dL Normal 0.20 - 1.00 mg/dL [facility]; [facility] Work Phone: Chloride [Moles/Vol] 101 mmol/L Normal 98 - 10 7 mmol/L [facility]; [facility] Work Phone: CO2 [Moles/Vol] 29.0 mmol/L Normal 21.0 - 32.0 mmol/L [facility]; [facility] Work Phone: Creatinine [Mass/Vol] 0.95 mg/dL Normal 0.55 - 1.02 mg/dL [facility]; [facility] Work Phone: GFR/1.73 sq M.predicted among non-blacks MDRD (S/P/Bld) [Vol rate/Area] 60 mL/min/{1.73_m2} Normal [facility]; [facility] Work Phone: Globulin (S) [Mass/Vol] 3.9 g/dL Normal 2.2 - 4.2 g/dL [facility]; [facility] Work Phone: Glucose [Mass/Vol] 100 mg/dL Normal 74 - 106 mg/dL [facility]; [facility] Work Phone: Magnesium [Mass/Vol] 15 mg/dL Abnormal [facility]; [facility] Work Phone: Magnesium [Mass/Vol] 8.7 mg/dL Normal 8.5 - 1 0.1 mg/dL [facility]; [facility] Work Phone: Potassium [Moles/Vol] 3.3 mmol/L Abnormal 3.5 - 5.1 mmol/L [facility]; [facility] Work Phone: Sodium [Moles/Vol] 135 mmol/L Abnormal 136 - 145 mmol/L [facility]; [facility] Work Phone: Urea nitrogen [Mass/Vol] 14 mg/dL Normal 7 - 18 mg/dL [facility]; [facility] Work Phone: Laboratory - Microbiology an d Antimicrobial susceptibilityon 04-16-2023 Bacteria identified Cx Nom (Unsp spec) 1+ Normal [facility]; [facility] Work Phone: L. pneumophila Ag Ql (U) See Note Normal [facility]; [facility] Work Phone: Respiratory pathogens DNA and RNA 12b panel ZAID+probe (Unsp spec) See Note Normal [facility]; [facility] Work Phone: S. pneumoniae Ag LA Ql (Unsp spec) See Note Normal [facility]; [facility] Work Phone: Laboratory - Urinalysison Mucus Ql (Urine sed) 0 SEEN Normal [facility].; [facility]ITAL[facility]adio[facility] [employer] [facility]. Work Phone: Mucus LM Ql (Urine sed)Order ed By: Nicholas Cohen on 04-16-2023 Mucus Ql (Urine sed) 0 SEEN /hpf [facility] Nitrite ur dipstickOrdered B y: Nicholas Cohen on 04-16-2023 Nitrite Ql (U) Negative Normal [facility] No Panel InformationOrdered By: Nicholas Cohen on 04-16-2023 Troponin I High Sensitivity 14 pg/mL 3.0-54.0 [facility] Comment on above: Please Note: New Shaniqua t Units and Gender Specific Reference Ranges. For more information see Policy Stat Procedure [place] High Sensitivity Troponin (TNIH) and attachments. No Panel Informationon 04-16 ALK P 117 U/L Normal 45 - 117 U/L [facility].; [facility] [employer] [facility]. Work Phone: BILIRUBIN URINE Negative Normal [facility] [employer] [facility].; [facility] [employer] [facility]. Work Phone: BUN/CRE 14.7 {RATIO} Normal 10 - 20 {RATIO} [facility].; [facility] [employer] [facility], [employer]. Work Phone: ECRCL 34.69 ml/min Normal [facility].; [facility] [employer] [facility]. Work Phone: EPI,SQUAMOUS 0 SEEN Normal 5 - 10 {/hpf} [facility].; [facility]ITAL[facility]io[facility] [employer] [facility]. Work Phone: EST GFR - AA 72 mL/min Normal [facility] [employer] [facility].; [employer] [facility] [employer] [facility], [employer]. Work Phone: GAP 5 Normal 5 - 15 [facility] [employer] [facility].; [employer] [facility], [employer]. Work Phone: GLUCOSE, UR Normal Normal [facility].; [facility]. Work Phone: KETONE UR Negative Normal [facility]; [facility]. Work Phone: LEUK ESTERASE 500 /ul Abnormal [facility].; [facility]. Work Phone: [phone] See Note Normal [facility].; [facility], [facility]. Work Phone: OCCULT BLOOD-UR 25 /ul Abnormal [facility]. Work Phone: pH UR 7.0 Normal 5.0 - 8.0 [facility]; [facility]. Work Phone: RBC 0-5 SEEN Normal 0 - 5 {/hpf} [facility].; [facility], [facility]. Work Phone: SP.GR. DIPSTX 1.010 Normal 1.002 - 1.030 [facility]; [facility] Work Phone: T PROT 7.0 g/dL Normal 6.4 - 8.2 g/dL [facility]; [facility]. Work Phone: TROPONIN-I HS 14 pg/mL Normal 3.0 - 54.0 pg/mL [facility]; [facility]. Work Phone: URC See Note Normal [facility].; [facility], [facility]. Work Phone: UROBILI Normal Normal [facility]; [facility] Work Phone: WBC 10-25 SEEN Normal 0 - 5 {/hpf} [facility]; [facility] Work Phone: Protein Test strip Ql (U)Ord ered By: Nicholas Cohen on 04-16-2023 Protein Ql (U) 15 mg/dl Negative [facility] Squamous epithelial cells de tection in urine sediment by light microscopyOrdered By: Nicholas Cohen on 04-16-2023 Epithelial cells.squamous LM Ql (Urine sed) 0 SEEN /hpf 5-10 [facility] Urine blood detectionOrdered By: Nicholas Cohen on 04-16-2023 RBC Ql (U) 25 /ul Negative [facility] RBC Ql (U) 0-5 SEEN /hpf 0-5 [facility] Urine clarityOrdered By: Geremias Cohen on 04-16-2023 Clarity (U) Sl. Cloudy Normal [facility] Urine color determinationOrd ered By: Nicholas Choen on 04-16-2023 Color (U) Yellow Normal [facility] Urine glucose detectionOrder ed By: Nicholas Cohen on 04-16-2023 Glucose Ql (U) Normal mg/dl Normal [facility] Urine leukocyte esterase det ection by dipstickOrdered By: Nicholas Cohen on 04-16-2023 Leukocyte esterase Test strip Ql (U) 500 /ul Negative [facility] Urine pHOrdered By: Nicholas bishop on 04-16-2023 pH (U) 7.0 [pH] 5.0 - 8.0 [facility] Urine sediment bacteria coun t by microscopy (number/high power field)Ordered By: Nicholas Cohen on 04-16-2023 Bacteria LM.HPF (Urine sed) [#/Area] 1 /[HPF] None Seen [facility] Urine specific gravity measu rementOrdered By: Nicholas Cohen on 04-16-2023 Specific gravity (U) [Rel density] 1.010 1.002-1.03 0 [facility] Urobilinogen Auto test strip Ql (U)Ordered By: Nicholas Cohen on 04-16-2023 Urobilinogen Ql (U) Normal mg/dl Normal [facility] Culture, urineOrdered By: Julia Grigsby on 04-06-2023 Bacteria identified Cx Nom (U) GPC Poss Enterococcus sp [facility] Basophil percentageOrdered B y: Elliott Grigsby on 04-05-2023 Basophil percentage 0-5 SEEN /hpf 0-5 [facility] Comment on above: Previous reported re sult: 0 SEEN /hpfEdited by: KAMAR on 04/05/23:1616 AMENDED REPORT 04/05/23 1616 WBC previously reported as: 0 SEEN /hpf Bilirubin Test strip Ql (U)O rdered By: Elliott Grigsby on 04-05-2023 Bilirubin Ql (U) 1 mg/dL Negative [facility] Comment on above: COLOR OF URINE MAY A FFECT DIPSTICK RESULTS. Calcium oxalate crystals det ection in urine sediment by light microscopyOrdered By: Elliott Grigsby on 04-05-2023 Calcium oxalate crystals LM Ql (Urine sed) 2+ /hpf [facility] Hyaline casts LM.LPF (Urine sed) [#/Area]Ordered By: Elliott Grigsby on 04-05-2023 Hyaline casts (Urine sed) [#/Area] 0 /[LPF] 0-5 [facility] Ketones Test strip Ql (U)Ord ered By: Elliott Grigsby on 04-05-2023 Ketones Ql (U) Negative Negative [facility] Laboratory - Chemistry and C hemistry - challengeon 04-05-2023 Bilirubin Ql (U) Small (1+) [facility] Glucose Ql (U) Negative [facility] Ketones Ql (U) Small (15+) [facility] pH (U) 5.0 [pH] [facility] Specific gravity (U) [Rel density] 1.015 [facility] Urobilinogen (U) [Mass/Vol] 1 mg/dL [facility] Laboratory - Hematology and Cell countson 04-05-2023 Hemoglobin Ql (U) Negative [facility] - Specimen inform ationon 04-05-2023 Clarity (U) Clear [facility] Color (U) Opal [facility] Laboratory - Urinalysison Nitrite Ql (U) Positive [facility] Protein Ql (U) 3+ [facility] Magnesium ammonium phosphate crystal detectionOrdered By: Elliott Grigsby on 04-05-2023 Triple phosphate crystals LM Ql (Urine sed) 0 SEEN /hpf [facility] Mucus LM Ql (Urine sed)Order ed By: Elliott Grigsby on 04-05-2023 Mucus Ql (Urine sed) 0 SEEN /hpf [facility] Nitrite Test strip Ql (U)Ord ered By: Elliott Grigsby on 04-05-2023 Nitrite Ql (U) Negative Negative [facility] No Panel InformationOrdered By: Elliott Grigsby on 04-05-2023 Urine Transitional Epithelial Cells 0 SEEN /hpf 0-5 [facility] No Panel Informationon 04-05 Urine Leukocytes Negatve [facility] Urine Non-Hemolyzed Blood [facility] Protein Test strip Ql (U)Ord ered By: Elliott Grigsby on 04-05-2023 Protein Ql (U) 30 mg/dl Negative [facility] Squamous epithelial cells de tection in urine sediment by light microscopyOrdered By: Elliott Grigsby on 04-05-2023 Epithelial cells.squamous LM Ql (Urine sed) 0-5 SEEN /hpf 5-10 [facility] Comment on above: Previous reported re sult: 0 SEEN /hpfEdited by: KAMAR on 04/05/23:1616 AMENDED REPORT 04/05/23 1616 SQUAM EPI previously reported as: 0 SEEN /hpf Urine blood detectionOrdered By: Elliott Grigsby on 04-05-2023 RBC Ql (U) 10 /ul Negative [facility] RBC Ql (U) 0 SEEN /hpf 0-5 [facility] Urine clarityOrdered By: Skyler Grigsby on 04-05-2023 Clarity (U) Clear Clear [facility] Urine coarse granular cast d etectionOrdered By: Elliott Grigsby on 04-05-2023 Coarse Granular Casts LM Ql (Urine sed) 0 SEEN /lpf 0-5 /lpf [facility] Urine color determinationOrd ered By: Elliott Grigsby on 04-05-2023 Color (U) Yellow Yellow [facility] Urine glucose detectionOrder ed By: Elliott Grigsby on 04-05-2023 Glucose Ql (U) Normal mg/dl Normal [facility] Urine leukocyte esterase det ection by dipstickOrdered By: Elliott Grigsby on 04-05-2023 Leukocyte esterase Test strip Ql (U) 25 /ul Negative [facility] Urine pHOrdered By: Elliott dickerson on 04-05-2023 pH (U) 6.0 [pH] 5.0 - 8.0 [facility] Urine sediment bacteria coun t by microscopy (number/high power field)Ordered By: Elliott Grigsby on 04-05-2023 Bacteria LM.HPF (Urine sed) [#/Area] 0 /[HPF] None Seen [facility] Urine sediment erythrocyte c ast detection by light microscopyOrdered By: Elliott Grigsby on 04-05-2023 RBC casts LM Ql (Urine sed) 0 SEEN /lpf None Seen [facility] Urine sediment fine granular cast count by microscopy (number/low power field)Ordered By: Elliott Grigsby on 04-05-2023 Fine Granular Casts LM.LPF (Urine sed) [#/Area] 0 SEEN /lpf 0-5 [facility] Urine sediment leukocyte bianca t count by microscopy (number/low power field)Ordered By: Elliott Grigsby on 04-05-2023 WBC casts LM.LPF (Urine sed) [#/Area] 0 SEEN /lpf None Seen [facility] Urine sediment renal epithel ial cell count by microscopy (number/high power field)Ordered By: Elliott Grigsby on 04-05-2023 Epithelial cells.renal LM.HPF (Urine sed) [#/Area] 0 /[HPF] 0-5 [facility] Urine sediment unidentified crystal count by microscopy (number/high powered field)Ordered By: Elliott Grigsby on 04-05-2023 Unidentified crystals LM.HPF (Urine sed) [#/Area] 0 SEEN /hpf None Seen [facility] Urine sediment uric acid cry stal count by microscopy (number/high power field)Ordered By: Elliott Grigsby on 04-05-2023 Urate crystals LM.HPF (Urine sed) [#/Area] 0 /[HPF] [facility] Urine specific gravity measu rementOrdered By: Elliott Grigsby on 04-05-2023 Specific gravity (U) [Rel density] 1.025 1.002-1.03 0 [facility] Urobilinogen Auto test strip Ql (U)Ordered By: Elliott Grigsby on 04-05-2023 Urobilinogen Ql (U) 1 mg/dl Normal [facility] Waxy casts detection in urin e sediment by light microscopyOrdered By: Elliott Grigsby on 04-05-2023 Waxy casts LM Ql (Urine sed) 0 SEEN /lpf None Seen [facility] .Auto Diffon 11-14-2022 Basophil, Absolute 0.1 10 3/mcL Normal 0.0-0.3 [facility] ([place]) Comment on above: Performed By: #### A DIFF, ANEU, CBC #### [address] [address] Basophils/100 WBC (Bld) 1.0 % Normal 0.0 - 2.5 % [facility] ([place]) Comment on above: Performed By: #### A DIFF, ANEU, CBC #### [address] [address] Eosinophil, Absolute 0.1 10 3/mcL Normal 0.0-0.7 [facility] ([place]) Comment on above: Performed By: #### A DIFF, ANEU, CBC #### [address] [address] Eosinophils/100 WBC (Bld) 2.0 % Normal 0.0 - 6.0 % [facility] ([place]) Comment on above: Performed By: #### A DIFF, ANEU, CBC #### [address] [address] Lymphocyte, Absolute 1.9 10 3/mcL Normal 0.9-4.3 [facility] ([place]) Comment on above: Performed By: #### A DIFF, ANEU, CBC #### [address] [address] Lymphocytes/100 WBC (Bld) 25.6 % Normal 20.0 - 40.0 % [facility] ([place]) Comment on above: Performed By: #### A DIFF, ANEU, CBC #### [address] [address] Monocyte, Absolute 0.6 10 3/mcL Normal 0.1-1.4 [facility] ([place]) Comment on above: Performed By: #### A DIFF, ANEU, CBC #### [address] [address] Monocytes/100 WBC (Bld) 8.5 % Normal 2.0 - 13.0 % [facility] ([place]) Comment on above: Performed By: #### A DIFF, ANEU, CBC #### [place] [id number] Neutrophils/100 WBC (Bld) 62.9 % Normal 50.0 - 75.0 % [facility] ([place]) Comment on above: Performed By: #### A DIFF, ANEU, CBC #### [place] [id number] .NEUABSon 11-14-2022 Neutrophil, Absolute 4.7 10 3/mcL Normal 2.3-8.1 [facility] ([place]) Comment on above: Performed By: #### A DIFF, ANEU, CBC #### [place] [address] CBCon 11-14-2022 Erythrocyte distribution width (RBC) [Ratio] 16.2 % Abnormal 11.5 - 15.5 % [facility] ([place]) Comment on above: Performed By: #### A DIFF, ANEU, CBC #### [place] [address] Hematocrit (Bld) [Volume fraction] 34.8 % Normal 34.0 - 46.0 % [facility] ([place]) Comment on above: Performed By: #### A DIFF, ANEU, CBC #### [place] [address] Hgb 11.3 G/dL Low 12.0-16.0 [facility] ([place]) Comment on above: Performed By: #### A DIFF, ANEU, CBC #### [place] [address] MCH (RBC) [Entitic mass] 28.8 pg Normal 27.0 - 33.0 pg [facility] ([place]) Comment on above: Performed By: #### A DIFF, ANEU, CBC #### [place] [address] MCHC 32.5 G/dL Normal 32.0-36.0 [facility] ([place]) Comment on above: Performed By: #### A DIFF, ANEU, CBC #### [address] [address] MCV (RBC) [Entitic vol] 88.6 fL Normal 80.0 - 99.0 fL [facility] ([place]) Comment on above: Performed By: #### A DIFF, ANEU, CBC #### [address] [address] Platelet 362 10 3/mcL Normal 150-450 [facility] ([place]) Comment on above: Performed By: #### A DIFF, ANEU, CBC #### [address] [address] Platelet mean volume (Bld) [Entitic vol] 7.1 fL Normal 6.6 - 10.5 fL [facility] ([place]) Comment on above: Performed By: #### A DIFF, ANEU, CBC #### [address] [address] RBC 3.92 10 6/mcL Low 4.10-5.30 [facility] ([place]) Comment on above: Performed By: #### A DIFF, ANEU, CBC #### [address] [address] WBC 7.5 10 3/mcL Normal 4.5-10.8 [facility] ([place]) Comment on above: Performed By: #### A DIFF, ANEU, CBC #### [address] [address] Laboratory - Hematology and Cell countson 11-13-2022 Basophils (Bld) [#/Vol] 0.1 {10^3/mcL} Normal 0.0 - 0.3 {10^3/mcL} [facility] Work Phone: Eosinophils (Bld) [#/Vol] 0.1 {10^3/mcL} Normal 0.0 - 0.7 {10^3/mcL} [facility] Work Phone: Hemoglobin (Bld) [Mass/Vol] 11.3 g/dL Abnormal 12.0 - 16.0 g/dL [facility]. Work Phone: Lymphocytes (Bld) [#/Vol] 1.9 {10^3/mcL} Normal 0.9 - 4.3 {10^3/mcL} [facility]. Work Phone: MCHC (RBC) [Mass/Vol] 32.5 g/dL Normal 32.0 - 36.0 g/dL [facility]. Work Phone: Monocytes (Bld) [#/Vol] 0.6 {10^3/mcL} Normal 0.1 - 1.4 {10^3/mcL} [facility]. Work Phone: Neutrophils (Bld) [#/Vol] 4.7 {10^3/mcL} Normal 2.3 - 8.1 {10^3/mcL} [facility].; [facility], [facility]. Work Phone: Platelets (Bld) [#/Vol] 362 {10^3/mcL} Normal 150 - 450 {10^3/mcL} [facility], [facility]. Work Phone: RBC (Bld) [#/Vol] 3.92 {10^6/mcL} Abnormal 4.10 - 5.30 {10^6/mcL} [facility].; [facility], [facility]. Work Phone: WBC (Bld) [#/Vol] 7.5 {10^3/mcL} Normal 4.5 - 10 .8 {10^3/mcL} [facility] Work Phone: No Panel Informationon 11-13 Basophil, Absolute 0.1 {10^3/mcL} Normal 0.0 - 0 .3 {10^3/mcL} [facility].; [facility], [employer]. Work Phone: Eosinophil, Absolute 0.1 {10^3/mcL} Normal 0.0 - 0.7 {10^3/mcL} [facility].; [facility], [employer]. Work Phone: Lymphocyte, Absolute 1.9 {10^3/mcL} Normal 0.9 - 4.3 {10^3/mcL} [facility].; [facility], [employer]. Work Phone: Monocyte, Absolute 0.6 {10^3/mcL} Normal 0.1 - 1 .4 {10^3/mcL} [facility], [employer]. Work Phone: Neutrophil, Absolute 4.7 {10^3/mcL} Normal 2.3 - 8.1 {10^3/mcL} [facility].; [facility], [employer]. Work Phone: Laboratory - Chemistry and C hemistry - challengeon 06-30-2022 Albumin [Mass/Vol] 1.0 g/dL Normal 0.9 - 1.6 [facility], [facility]. Albumin [Mass/Vol] 3.4 g/dL Normal 3.4 - 5.0 g/dL [facility].; [facility], [facility]. ALT [Catalytic activity/Vol] 23 U/L Normal 14 - 59 U/L [facility].; [facility], [facility]. ALT No additional P-5'-P [Catalytic activity/Vol] 23 U/L Normal 14 - 59 U/L [facility].; [facility] Anion gap [Moles/Vol] 10 mmol/L Normal 10 - 2 0 mmol/L [facility]; [facility] AST [Catalytic activity/Vol] 31 U/L Normal 13 - 39 U/L [facility]; [facility] Bilirubin [Mass/Vol] 0.3 mg/dL Normal 0.2 - 1 .0 mg/dL [facility]; [facility] Calcium [Mass/Vol] 9.0 mg/dL Normal 8.5 - 10. 1 mg/dL [facility]; [facility] Chloride [Moles/Vol] 102 mmol/L Normal 98 - 10 7 mmol/L [facility]; [facility] Cholesterol [Mass/Vol] 193 mg/dL Normal 0 - 240 mg/dL [facility]; [facility] Cholesterol in HDL [Mass or moles/Vol] 50 mg/dL Normal 40 - 60 mg/dL [facility]; [facility] Cholesterol in LDL [Mass/Vol] 128 mg/dL Normal 0 - 129 mg/dL [facility]; [facility] Cholesterol.total/Cho lesterol in HDL [Mass ratio] 3.9 {ratio} Normal 0.0 - 5.0 [facility]; [facility] CO2 [Moles/Vol] 32.3 mmol/L Abnormal 21.0 - 32.0 mmol/L [facility]; [facility] Creatinine [Mass/Vol] 0.84 mg/dL Normal 0.55 - 1.02 mg/dL [facility]; [facility] GFR/1.73 sq M.predicted among blacks MDRD (S/P/Bld) [Vol rate/Area] mL/min/{1.73_m2} Normal 60 - 999 {ML/MINUTE } [facility].; [facility] GFR/1.73 sq M.predicted MDRD (S/P/Bld) [Vol rate/Area] mL/min/{1.73_m2} Normal 60 - 999 {ML/MINUTE } [facility].; [facility] Globulin (S) [Mass/Vol] 3.3 g/dL Normal 1.5 - 3.8 g/dL [facility]; [facility] Glucose [Mass/Vol] 92 mg/dL Normal 74 - 106 mg/dL [facility]; [facility] Lipid 1996 panel Normal [facility]; [facility] Potassium [Moles/Vol] 3.6 mmol/L Normal 3.5 - 5.1 mmol/L [facility]; [facility] Protein [Mass/Vol] 6.7 g/dL Normal 6.4 - 8.2 g/dL [facility]; [facility] Sodium [Moles/Vol] 141 mmol/L Normal 136 - 145 mmol/L [facility]; [facility] Triglyceride [Mass/Vol] 74 mg/dL Normal 0 - 150 mg/dL [facility]; [facility] TSH Qn 2.16 m[IU]/L Normal 0.35 - 3.74 {uIU/ml} [facility]; [facility] Urea nitrogen [Mass/Vol] 14 mg/dL Normal 7 - 18 mg/dL [facility].; [facility], [facility] Urea nitrogen/Creatinine [Mass ratio] 17 {ratio} Normal 0 - 30 {ratio} [facility].; [facility] Laboratory - Hematology and Cell countson 06-30-2022 Basophils (Bld) [#/Vol] 0.00 {x10EE3/UL} Normal 0.00 - 0.10 {x10EE3/UL } [facility].; [facility], [facility] Basophils/100 WBC (Bld) 0.6 % Normal 0.0 - 2.0 % [facility].; [facility], [facility] Eosinophils (Bld) [#/Vol] 0.10 {x10EE3/UL} Normal 0.00 - 0.50 {x10EE3/UL } [facility].; [facility], [facility] Eosinophils/100 WBC (Bld) 2.0 % Normal 0.0 - 7.0 % [facility].; [facility], [facility] Erythrocyte distribution width (RBC) [Ratio] 13.1 % Normal 12.0 - 15.6 % [facility].; [facility], [facility] Hematocrit (Bld) [Volume fraction] 35.3 % Normal 34.0 - 46.0 % [facility].; [facility], [facility] Hemoglobin (Bld) [Mass/Vol] 11.3 g/dL Abnormal 12.0 - 16.0 g/dL [facility].; [facility], [facility] Lymphocytes (Bld) [#/Vol] 1.50 {x10EE3/UL} Normal 0.80 - 2.80 {x10EE3/UL } [facility].; [facility], [facility] Lymphocytes/100 WBC (Bld) 23.7 % Normal 20.0 - 45.0 % [facility].; [facility], [facility] MCH (RBC) [Entitic mass] 28 pg Normal 27 - 33 pg [facility] [employer] [facility].; [facility], [facility] MCHC (RBC) [Mass/Vol] 32 {X10_3} Normal 32 - 3 6 {X10_3} [facility].; [facility] [employer] [facility], [employer]. MCV (RBC) [Entitic vol] 88 fL Normal 80 - 99 fL [facility] [employer] [facility], [facility]. Monocytes (Bld) [#/Vol] 1.00 {x10EE3/UL} Normal 0.20 - 1.00 {x10EE3/UL } [facility], [employer].; [facility] [employer] [facility], [employer] Monocytes/100 WBC (Bld) 15.0 % Abnormal 0.0 - 10.0 % [facility].; [facility] [employer] [facility], [employer]. Morphology Sonny (Bld) [Interp] N/A Normal [facility].; [facility] [employer] [facility], [employer]. Neutrophils (Bld) [#/Vol] 3.80 {x10EE3/UL} Normal 1.50 - 7.10 {x10EE3/UL } [facility].; [facility] [employer] [facility], [employer]. Neutrophils/100 WBC (Bld) 58.7 % Normal 46.0 - 76.0 % [facility].; [facility] [employer] [facility], [employer]. Platelet mean volume (Bld) [Entitic vol] 7.6 fL Normal 6.6 - 10.5 fL [facility].; [facility] [employer] [facility], [employer]. Platelets (Bld) [#/Vol] 461 {x10EE3/UL} Abnormal 150 - 450 {x10EE3/UL } [facility] [email or web address] RBC (Bld) [#/Vol] 4.00 {x_10EE6/UL} Abnormal 4.10 - 5.30 {x_10EE6/U L} [employer].; [facility] [employer] [facility], [employer]. WBC (Bld) [#/Vol] 6.5 {x_10EE3/UL} Normal 4.5 - 10.8 {x_10EE3/U L} [facility] [employer] [facility] [email or web address]. No Panel Informationon 01[birth year]16 [birth year]23 AGE 82 {years} Normal [facility].; [facility]. ALK PHOS 111 U/L Normal 46 - 116 U/L [facility] CBC + DIFF Normal [facility].; [facility]. CMP with eGFR Normal [facility].; [facility]. MANUAL DIFF N/A Normal [facility].; [facility]. Absolute lymphocyte counton 02-15-2022 Lymphocytes Auto (Unsp spec) [#/Vol] 2.15 10*3/uL 0.83-4.51 [facility] Work Phone: Basophil percentageon 2021 Basophils/100 WBC (Bld) 0.4 % 0-1 [facility] Work Phone: Chloride [Moles/Vol] 107 mmol/L 98-107 [facility] Work Phone: Eosinophils/100 WBC (Bld) 2.4 % 0-5 [facility] Work Phone: Glucose [Mass/Vol] 98 mg/dL 74-106 [facility] Work Phone: Neutrophils (Bld) [#/Vol] 3.5 10*3/uL 2.0-7.7 [facility] Work Phone: Neutrophils/100 WBC (Bld) 52.1 % 47-70 [facility] Work Phone: Potassium [Moles/Vol] 4.3 mmol/L 3.5-5.1 [facility] Work Phone: Sodium [Moles/Vol] 139 mmol/L 136-145 [facility] Work Phone: WBC (Bld) [#/Vol] 6.8 10*3/uL 4.4-11.0 [facility] Work Phone: Blood erythrocytes count (nu mber/volume)on 02-15-2022 RBC (Bld) [#/Vol] 3.76 10*6/uL 4.2-5.4 [facility] Work Phone: Blood hemoglobin measurement (mass/volume)on 02-15-2022 Hemoglobin (Bld) [Mass/Vol] 11.4 g/dL 12.0-15.0 [facility] Work Phone: Blood lymphocytes/100 leukoc yteson 02-15-2022 Lymphocytes/100 WBC (Bld) 31.7 % 19-41 [facility] Work Phone: Blood monocytes/100 leukocyt eson 02-15-2022 Monocytes/100 WBC (Bld) 13.1 % 0-10 [facility] Work Phone: Blood platelet mean volumeon 02-15-2022 Platelet mean volume (Bld) [Entitic vol] 9.0 fL 6.2-12.0 [facility] Work Phone: Determination of erythrocyte mean corpuscular volume (MCV)on 02-15-2022 MCV (RBC) [Entitic vol] 95.2 fL 81-99 [facility] Work Phone: Hematocrit Auto (Bld) [Volum e fraction]on 02-15-2022 Hematocrit (Bld) [Volume fraction] 35.8 % 37-47 [facility] Work Phone: Laboratory - Chemistry and C hemistry - challengeon 02-15-2022 CO2 [Moles/Vol] 26.0 mmol/L 21.0-32.0 [facility] Work Phone: Urea nitrogen/Creatinine [Mass ratio] 23.6 mg/mg 10-20 [facility] Work Phone: Laboratory - Hematology and Cell countson 02-15-2022 Erythrocyte distribution width (RBC) [Entitic vol] 46.2 fL 35.1-43.9 [facility] Work Phone: Erythrocyte distribution width (RBC) [Ratio] 13.3 % 11.6-14.6 [facility] Work Phone: Immature granulocytes/100 WBC (Bld) 0.300 % 0.0-0.9 [facility] Work Phone: Comment on above: IG% - Immature Granu locytes (promyelocytes, myelocytes and metamyelocytes) > 1% indicates that a LEFT SHIFT is Present. MCH (RBC) [Entitic mass] 30.3 pg 27.0-32.0 [facility] Work Phone: Nucleated RBC/100 WBC (Bld) [Ratio] 0 % 0-5 [facility] Work Phone: MCHC Auto (RBC) [Mass/Vol]on 02-15-2022 MCHC (RBC) [Mass/Vol] 31.8 g/dL 32-36 [facility] Work Phone: No Panel Informationon 02-15 Estimated Creatinine Clearance Calc 35.94 ml/min [facility] Work Phone: Estimated GFR (MDRD) Amer 64 mL/min >60 [facility] Work Phone: Comment on above: GFR Calc Estimated GFR (MDRD) Non-Af Amer 53 mL/min >60 [facility] Work Phone: Comment on above: Non- GFR Calc Platelets bldon 02-15-2022 Platelets (Bld) [#/Vol] 296 10*3/uL 150-450 [facility] Work Phone: Serum or plasma calcium candice urement (mass/volume)on 02-15-2022 Calcium [Mass/Vol] 9.7 mg/dL 8.5-10.1 [facility] Work Phone: Serum or plasma creatinine m easurement (mass/volume)on 02-15-2022 Creatinine [Mass/Vol] 1.06 mg/dL 0.55-1.02 [facility] Work Phone: Comment on above: The validity of the calculated GFR & GFRAA in patients over 70 years has not been determined. Clinical correlation is essential. Serum or plasma urea nitroge n measurement (mass/volume)on 02-15-2022 Urea nitrogen [Mass/Vol] 25 mg/dL 7-18 [facility] Work Phone: Thin prep Papanicolaou smear with manual screeningon 02-15-2022 Thin prep Papanicolaou smear with manual screening 6 5-15 [facility] Work Phone: Serum or plasma folate measu rement (mass/volume)on 02-11-2022 Folate [Mass/Vol] 12.20 ng/mL 3.1-55.4 [facility] Work Phone: Absolute lymphocyte counton 12-28-2021 Lymphocytes Auto (Unsp spec) [#/Vol] 1.79 10*3/uL 0.83-4.51 [facility] Work Phone: Basophil percentageon 2021 Basophils/100 WBC (Bld) 0.7 % 0-1 [facility] Work Phone: Chloride [Moles/Vol] 108 mmol/L 98-107 [facility] Work Phone: Eosinophils/100 WBC (Bld) 2.7 % 0-5 [facility] Work Phone: Glucose [Mass/Vol] 96 mg/dL 74-106 [facility] Work Phone: Neutrophils (Bld) [#/Vol] 1.8 10*3/uL 2.0-7.7 [facility] Work Phone: Neutrophils/100 WBC (Bld) 39.9 % 47-70 [facility] Work Phone: Potassium [Moles/Vol] 3.8 mmol/L 3.5-5.1 [facility] Work Phone: Sodium [Moles/Vol] 142 mmol/L 136-145 [facility] Work Phone: WBC (Bld) [#/Vol] 4.4 10*3/uL 4.4-11.0 [facility] Work Phone: Blood erythrocytes count (nu mber/volume)on 12-28-2021 RBC (Bld) [#/Vol] 3.53 10*6/uL 4.2-5.4 [facility] Work Phone: Blood hemoglobin measurement (mass/volume)on 12-28-2021 Hemoglobin (Bld) [Mass/Vol] 10.8 g/dL 12.0-15.0 [facility] Work Phone: Blood lymphocytes/100 leukoc yteson 12-28-2021 Lymphocytes/100 WBC (Bld) 40.6 % 19-41 [facility] Work Phone: Blood monocytes/100 leukocyt eson 12-28-2021 Monocytes/100 WBC (Bld) 15.6 % 0-10 [facility] Work Phone: Blood platelet mean volumeon 12-28-2021 Platelet mean volume (Bld) [Entitic vol] 8.8 fL 6.2-12.0 [facility] Work Phone: Determination of erythrocyte mean corpuscular volume (MCV)on 12-28-2021 MCV (RBC) [Entitic vol] 96.3 fL 81-99 [facility] Work Phone: Hematocrit Auto (Bld) [Volum e fraction]on 12-28-2021 Hematocrit (Bld) [Volume fraction] 34.0 % 37-47 [facility] Work Phone: Laboratory - Chemistry and C hemistry - challengeon 12-28-2021 CO2 [Moles/Vol] 29.0 mmol/L 21.0-32.0 [facility] Work Phone: Urea nitrogen/Creatinine [Mass ratio] 29.6 mg/mg 10-20 [facility] Work Phone: Laboratory - Hematology and Cell countson 12-28-2021 Erythrocyte distribution width (RBC) [Entitic vol] 49.6 fL 35.1-43.9 [facility] Work Phone: Erythrocyte distribution width (RBC) [Ratio] 13.9 % 11.6-14.6 [facility] Work Phone: Immature granulocytes/100 WBC (Bld) 0.500 % 0.0-0.9 [facility] Work Phone: Comment on above: IG% - Immature Granu locytes (promyelocytes, myelocytes and metamyelocytes) > 1% indicates that a LEFT SHIFT is Present. MCH (RBC) [Entitic mass] 30.6 pg 27.0-32.0 [facility] Work Phone: Nucleated RBC/100 WBC (Bld) [Ratio] 0 % 0-5 [facility] Work Phone: MCHC Auto (RBC) [Mass/Vol]on 12-28-2021 MCHC (RBC) [Mass/Vol] 31.8 g/dL 32-36 [facility] Work Phone: No Panel Informationon 12-28 Estimated Creatinine Clearance Calc 38.75 ml/min [facility] Work Phone: Estimated GFR (MDRD) Amer 114 mL/min >60 [facility] Work Phone: Comment on above: GFR Calc Estimated GFR (MDRD) Non-Af Amer 95 mL/min >60 [facility] Work Phone: Comment on above: Non- GFR Calc Platelets bldon 12-28-2021 Platelets (Bld) [#/Vol] 345 10*3/uL 150-450 [facility] Work Phone: Serum or plasma calcium candice urement (mass/volume)on 12-28-2021 Calcium [Mass/Vol] 8.8 mg/dL 8.5-10.1 [facility] Work Phone: Serum or plasma creatinine m easurement (mass/volume)on 12-28-2021 Creatinine [Mass/Vol] 0.64 mg/dL 0.55-1.02 [facility] Work Phone: Comment on above: The validity of the calculated GFR & GFRAA in patients over 70 years has not been determined. Clinical correlation is essential. Serum or plasma urea nitroge n measurement (mass/volume)on 12-28-2021 Urea nitrogen [Mass/Vol] 19 mg/dL 7-18 [facility] Work Phone: Thin prep Papanicolaou smear with manual screeningon 12-28-2021 Thin prep Papanicolaou smear with manual screening 5 5-15 [facility] Work Phone: Laboratory - Chemistry and C hemistry - challengeon 12-24-2021 Cobalamin (Vitamin B12) [Mass/Vol] 354 pg/mL 211-911 [facility] Work Phone: Absolute lymphocyte counton 12-21-2021 Lymphocytes Auto (Unsp spec) [#/Vol] 2.08 10*3/uL 0.83-4.51 [facility] Work Phone: [phone] Basophil percentageon 2021 Basophils/100 WBC (Bld) 0.8 % 0-1 [facility] Work Phone: [phone] Chloride [Moles/Vol] 103 mmol/L 98-107 [facility] Work Phone: [phone] Eosinophils/100 WBC (Bld) 2.3 % 0-5 [facility] Work Phone: Glucose [Mass/Vol] 100 mg/dL 74-106 [facility] Work Phone: Comment on above: Fasting Glucose resu lt from 100 to 125 mg/dL suggests IMPAIRED HOMEOSTASIS per A.D.A. criteria. Neutrophils (Bld) [#/Vol] 2.3 10*3/uL 2.0-7.7 [facility] Work Phone: Neutrophils/100 WBC (Bld) 43.7 % 47-70 [facility] Work Phone: [phone] Potassium [Moles/Vol] 3.7 mmol/L 3.5-5.1 [facility] Work Phone: [phone] Sodium [Moles/Vol] 139 mmol/L 136-145 [facility] Work Phone: WBC (Bld) [#/Vol] 5.2 10*3/uL 4.4-11.0 [facility] Work Phone: Blood erythrocytes count (nu mber/volume)on 12-21-2021 RBC (Bld) [#/Vol] 3.80 10*6/uL 4.2-5.4 [facility] Work Phone: Blood hemoglobin measurement (mass/volume)on 12-21-2021 Hemoglobin (Bld) [Mass/Vol] 11.3 g/dL 12.0-15.0 [facility] Work Phone: Blood lymphocytes/100 leukoc yteson 12-21-2021 Lymphocytes/100 WBC (Bld) 39.8 % 19-41 [facility] Work Phone: Blood monocytes/100 leukocyt eson 12-21-2021 Monocytes/100 WBC (Bld) 12.3 % 0-10 [facility] Work Phone: Blood platelet mean volumeon 12-21-2021 Platelet mean volume (Bld) [Entitic vol] 8.6 fL 6.2-12.0 [facility] Work Phone: Determination of erythrocyte mean corpuscular volume (MCV)on 12-21-2021 MCV (RBC) [Entitic vol] 96.3 fL 81-99 [facility] Work Phone: Hematocrit Auto (Bld) [Volum e fraction]on 12-21-2021 Hematocrit (Bld) [Volume fraction] 36.6 % 37-47 [facility] Work Phone: Laboratory - Chemistry and C hemistry - challengeon 12-21-2021 CO2 [Moles/Vol] 31.0 mmol/L 21.0-32.0 [facility] Work Phone: Urea nitrogen/Creatinine [Mass ratio] 28.6 mg/mg 10-20 [facility] Work Phone: Laboratory - Hematology and Cell countson 12-21-2021 Erythrocyte distribution width (RBC) [Entitic vol] 49.7 fL 35.1-43.9 [facility] Work Phone: Erythrocyte distribution width (RBC) [Ratio] 14.0 % 11.6-14.6 [facility] Work Phone: Immature granulocytes/100 WBC (Bld) 1.100 % 0.0-0.9 [facility] Work Phone: Comment on above: IG% - Immature Granu locytes (promyelocytes, myelocytes and metamyelocytes) > 1% indicates that a LEFT SHIFT is Present. MCH (RBC) [Entitic mass] 29.7 pg 27.0-32.0 [facility] Work Phone: Nucleated RBC/100 WBC (Bld) [Ratio] 0 % 0-5 [facility] Work Phone: MCHC Auto (RBC) [Mass/Vol]on 12-21-2021 MCHC (RBC) [Mass/Vol] 30.9 g/dL 32-36 [facility] Work Phone: No Panel Informationon 12-21 Estimated Creatinine Clearance Calc 38.75 ml/min [facility] Work Phone: Estimated GFR (MDRD) Amer 93 mL/min >60 [facility] Work Phone: Comment on above: GFR Calc Estimated GFR (MDRD) Non-Af Amer 77 mL/min >60 [facility] Work Phone: Comment on above: Non- GFR Calc Platelets bldon 12-21-2021 Platelets (Bld) [#/Vol] 426 10*3/uL 150-450 [facility] Work Phone: Serum or plasma calcium candice urement (mass/volume)on 12-21-2021 Calcium [Mass/Vol] 9.4 mg/dL 8.5-10.1 [facility] Work Phone: Serum or plasma creatinine m easurement (mass/volume)on 12-21-2021 Creatinine [Mass/Vol] 0.77 mg/dL 0.55-1.02 [facility] Work Phone: Comment on above: The validity of the calculated GFR & GFRAA in patients over 70 years has not been determined. Clinical correlation is essential. Serum or plasma urea nitroge n measurement (mass/volume)on 12-21-2021 Urea nitrogen [Mass/Vol] 22 mg/dL 7-18 [facility] Work Phone: Thin prep Papanicolaou smear with manual screeningon 12-21-2021 Thin prep Papanicolaou smear with manual screening 5 5-15 [facility] Work Phone: Basophil percentageon 2021 Basophil percentage 0 SEEN /hpf 0-5 [facility] Work Phone: Basophil percentage 4.7 mg/dL 2.5-4.9 [facility] Work Phone: Bilirubin [Mass/Vol] 0.20 mg/dL 0.20-1.00 [facility] Work Phone: Comment on above: For patients on eltr ombopag therapy, use of Dimension [place] TBIL is not recommended. Protein [Mass/Vol] 6.9 g/dL 6.4-8.2 [facility] Work Phone: Bilirubin Test strip Ql (U)o n 12-20-2021 Bilirubin Ql (U) Negative Negative [facility] Work Phone: Ketones Test strip Ql (U)on 12-20-2021 Ketones Ql (U) Negative Negative [facility] Work Phone: Laboratory - Chemistry and C hemistry - challengeon 12-20-2021 ALP [Catalytic activity/Vol] 76 U/L 45-117 [facility] Work Phone: ALT [Catalytic activity/Vol] 50 U/L 13-56 [facility] Work Phone: Globulin (S) [Mass/Vol] 3.8 g/dL 2.2-4.2 [facility] Work Phone: Mucus LM Ql (Urine sed)on Mucus Ql (Urine sed) 0 SEEN /hpf [facility] Work Phone: Nitrite Test strip Ql (U)on 12-20-2021 Nitrite Ql (U) Negative Negative [facility] Work Phone: Protein Test strip Ql (U)on 12-20-2021 Protein Ql (U) Negative Negative [facility] Work Phone: Serum or plasma albumin candice urement (mass/volume)on 12-20-2021 Albumin [Mass/Vol] 3.1 g/dL 3.2-5.0 [facility] Work Phone: Serum or plasma albumin/glob ulin mass ratioon 12-20-2021 Albumin/Globulin [Mass ratio] 0.8 {ratio} 0.9-2.4 [facility] Work Phone: Squamous epithelial cells de tection in urine sediment by light microscopyon 12-20-2021 Epithelial cells.squamous LM Ql (Urine sed) 0-5 SEEN /hpf 5-10 [facility] Work Phone: Thin prep Papanicolaou smear with manual screeningon 12-20-2021 Thin prep Papanicolaou smear with manual screening 35 U/L 15-37 [facility] Work Phone: Urine blood detectionon - RBC Ql (U) Negative Negative [facility] Work Phone: RBC Ql (U) 0 SEEN /hpf 0-5 [facility] Work Phone: Urine clarityon 12-20-2021 Clarity (U) Clear Clear [facility] Work Phone: Urine color determinationon 12-20-2021 Color (U) Yellow Yellow [facility] Work Phone: Urine glucose detectionon Glucose Ql (U) Normal mg/dl Normal [facility] Work Phone: Urine leukocyte esterase det ection by dipstickon 12-20-2021 Leukocyte esterase Test strip Ql (U) Negative Negative [facility] Work Phone: Urine pHon 12-20-2021 pH (U) 6.0 [pH] 5.0 - 8.0 [facility] Work Phone: Urine sediment bacteria coun t by microscopy (number/high power field)on 12-20-2021 Bacteria LM.HPF (Urine sed) [#/Area] 0 /[HPF] None Seen [facility] Work Phone: Urine specific gravity measu rementon 12-20-2021 Specific gravity (U) [Rel density] 1.015 1.002-1.03 0 [facility] Work Phone: Urobilinogen Auto test strip Ql (U)on 12-20-2021 Urobilinogen Ql (U) Normal mg/dl Normal [facility] Work Phone: Laboratory - Chemistry and C hemistry - challengeon 12-17-2021 Magnesium [Mass/Vol] 2.0 mg/dL 1.6-2.6 [facility] Work Phone: Basophil percentageon 2021 Chloride [Moles/Vol] 109 mmol/L 98-107 [facility] Work Phone: Glucose [Mass/Vol] 103 mg/dL 74-106 [facility] Work Phone: Comment on above: Fasting Glucose resu lt from 100 to 125 mg/dL suggests IMPAIRED HOMEOSTASIS per A.D.A. criteria. Potassium [Moles/Vol] 3.4 mmol/L 3.5-5.1 [facility] Work Phone: Sodium [Moles/Vol] 138 mmol/L 136-145 [facility] Work Phone: Laboratory - Chemistry and C hemistry - challengeon 12-13-2021 CK [Catalytic activity/Vol] 839 U/L 26-192 [facility] Work Phone: CO2 [Moles/Vol] 21.0 mmol/L 21.0-32.0 [facility] Work Phone: Urea nitrogen/Creatinine [Mass ratio] 14.4 mg/mg 10-20 [facility] Work Phone: No Panel Informationon 12-13 Estimated Creatinine Clearance Calc 38.75 ml/min [facility] Work Phone: Estimated GFR (MDRD) Amer 135 mL/min >60 [facility] Work Phone: Comment on above: GFR Calc Estimated GFR (MDRD) Non-Af Amer 111 mL/min >60 [facility] Work Phone: Comment on above: Non- GFR Calc Serum or plasma calcium candice urement (mass/volume)on 12-13-2021 Calcium [Mass/Vol] 7.6 mg/dL 8.5-10.1 [facility] Work Phone: Serum or plasma creatinine m easurement (mass/volume)on 12-13-2021 Creatinine [Mass/Vol] 0.56 mg/dL 0.55-1.02 [facility] Work Phone: Comment on above: The validity of the calculated GFR & GFRAA in patients over 70 years has not been determined. Clinical correlation is essential. Serum or plasma urea nitroge n measurement (mass/volume)on 12-13-2021 Urea nitrogen [Mass/Vol] 8 mg/dL 7-18 [facility] Work Phone: Thin prep Papanicolaou smear with manual screeningon 12-13-2021 Thin prep Papanicolaou smear with manual screening 8 5-15 [facility] Work Phone: Basophil percentageon 2021 Basophil percentage 1.6 mg/dL 2.5-4.9 [facility] Work Phone: Laboratory - Chemistry and C hemistry - challengeon 12-12-2021 Magnesium [Mass/Vol] 2.3 mg/dL 1.6-2.6 [facility] Work Phone: Absolute lymphocyte counton 12-11-2021 Lymphocytes Auto (Unsp spec) [#/Vol] 1.05 10*3/uL 0.83-4.51 [facility] Work Phone: Basophil percentageon 2021 Basophils/100 WBC (Bld) 0.1 % 0-1 [facility] Work Phone: [phone] Bilirubin [Mass/Vol] 0.30 mg/dL 0.20-1.00 [facility] Work Phone: Comment on above: For patients on eltr ombopag therapy, use of Dimension [place] TBIL is not recommended. Eosinophils/100 WBC (Bld) 0.0 % 0-5 [facility] Work Phone: Neutrophils (Bld) [#/Vol] 10.8 10*3/uL 2.0-7.7 [facility] Work Phone: Neutrophils/100 WBC (Bld) 78.6 % 47-70 [facility] Work Phone: [phone] Protein [Mass/Vol] 6.3 g/dL 6.4-8.2 [facility] Work Phone: [phone] WBC (Bld) [#/Vol] 13.8 10*3/uL 4.4-11.0 [facility] Work Phone: Blood erythrocytes count (nu mber/volume)on 12-11-2021 RBC (Bld) [#/Vol] 3.71 10*6/uL 4.2-5.4 [facility] Work Phone: [phone] Blood hemoglobin measurement (mass/volume)on 12-11-2021 Hemoglobin (Bld) [Mass/Vol] 11.1 g/dL 12.0-15.0 [facility] Work Phone: Blood lymphocytes/100 leukoc yteson 12-11-2021 Lymphocytes/100 WBC (Bld) 7.6 % 19-41 [facility] Work Phone: Blood monocytes/100 leukocyt eson 12-11-2021 Monocytes/100 WBC (Bld) 13.1 % 0-10 [facility] Work Phone: [phone] Blood platelet mean volumeon 12-11-2021 Platelet mean volume (Bld) [Entitic vol] 9.4 fL 6.2-12.0 [facility] Work Phone: Determination of erythrocyte mean corpuscular volume (MCV)on 12-11-2021 MCV (RBC) [Entitic vol] 91.9 fL 81-99 [facility] Work Phone: Hematocrit Auto (Bld) [Volum e fraction]on 12-11-2021 Hematocrit (Bld) [Volume fraction] 34.1 % 37-47 [facility] Work Phone: Laboratory - Chemistry and C hemistry - challengeon 12-11-2021 ALP [Catalytic activity/Vol] 80 U/L 45-117 [facility] Work Phone: ALT [Catalytic activity/Vol] 45 U/L 13-56 [facility] Work Phone: Globulin (S) [Mass/Vol] 3.5 g/dL 2.2-4.2 [facility] Work Phone: Laboratory - Hematology and Cell countson 12-11-2021 Erythrocyte distribution width (RBC) [Entitic vol] 47.1 fL 35.1-43.9 [facility] Work Phone: Erythrocyte distribution width (RBC) [Ratio] 13.9 % 11.6-14.6 [facility] Work Phone: Immature granulocytes/100 WBC (Bld) 0.600 % 0.0-0.9 [facility] Work Phone: Comment on above: IG% - Immature Granu locytes (promyelocytes, myelocytes and metamyelocytes) > 1% indicates that a LEFT SHIFT is Present. MCH (RBC) [Entitic mass] 29.9 pg 27.0-32.0 [facility] Work Phone: Nucleated RBC/100 WBC (Bld) [Ratio] 0 % 0-5 [facility] Work Phone: MCHC Auto (RBC) [Mass/Vol]on 12-11-2021 MCHC (RBC) [Mass/Vol] 32.6 g/dL 32-36 [facility] Work Phone: Platelets bldon 12-11-2021 Platelets (Bld) [#/Vol] 276 10*3/uL 150-450 [facility] Work Phone: Review by pathologiston 11-14 Pathologist review Sonny (Unsp spec) [Interp] Reviewed [facility] Work Phone: Comment on above: Previous reported re sult: Pham dean Edited by: RGOSARAI on 12/11/21:1238Neutrophilic leukocytosis.Clinical correlation necessary.Jagdish Helton M.D. 12/11/21 AMENDED REPORT 12/11/21 1238 PATH REV previously reported as: Pham dean Serum or plasma albumin candice urement (mass/volume)on 12-11-2021 Albumin [Mass/Vol] 2.8 g/dL 3.2-5.0 [facility] Work Phone: Serum or plasma albumin/glob ulin mass ratioon 12-11-2021 Albumin/Globulin [Mass ratio] 0.8 {ratio} 0.9-2.4 [facility] Work Phone: Serum procalcitonin measurem enton 12-11-2021 Procalcitonin [Mass/Vol] 4.19 ng/mL 0.00-0.09 [facility] Work Phone: Comment on above: A [...] smear with manual screening 123 U/L 15-37 [facility] Work Phone: Absolute lymphocyte counton 12-10-2021 Lymphocytes Auto (Unsp spec) [#/Vol] 1.00 10*3/uL 0.83-4.51 [facility] Work Phone: Amorphous sediment detection in urine sediment by light microscopyon 12-10-2021 Amorphous sediment LM Ql (Urine sed) 2+ [facility] Work Phone: [phone] Basophil percentageon 2021 Basophil percentage 50-100 SEEN /hpf 0-5 [facility] Work Phone: Basophils/100 WBC (Bld) 0.1 % 0-1 [facility] Work Phone: Bilirubin [Mass/Vol] 0.60 mg/dL 0.20-1.00 [facility] Work Phone: Comment on above: For patients on eltr ombopag therapy, use of Dimension [place] TBIL is not recommended. Chloride [Moles/Vol] 103 mmol/L 98-107 [facility] Work Phone: Eosinophils/100 WBC (Bld) 0.0 % 0-5 [facility] Work Phone: Glucose [Mass/Vol] 130 mg/dL 74-106 [facility] Work Phone: Comment on above: Fasting Glucose resu lt greater than or equal to 126 mg/dL suggests DIABETES MELLITUS per A.D.A. criteria. Neutrophils (Bld) [#/Vol] 10.9 10*3/uL 2.0-7.7 [facility] Work Phone: Neutrophils/100 WBC (Bld) 79.5 % 47-70 [facility] Work Phone: Potassium [Moles/Vol] 2.7 mmol/L 3.5-5.1 [facility] Work Phone: Comment on above: Critical Result(s) C alled at: 23:42:52 12/10/2021 by: CRISTAL Roberts RN ER. Results read back by same. Protein [Mass/Vol] 7.2 g/dL 6.4-8.2 [facility] Work Phone: Sodium [Moles/Vol] 137 mmol/L 136-145 [facility] Work Phone: WBC (Bld) [#/Vol] 13.7 10*3/uL 4.4-11.0 [facility] Work Phone: Bilirubin Test strip Ql (U)o n 12-10-2021 Bilirubin Ql (U) Negative Negative [facility] Work Phone: Blood erythrocytes count (nu mber/volume)on 12-10-2021 RBC (Bld) [#/Vol] 4.08 10*6/uL 4.2-5.4 [facility] Work Phone: Blood hemoglobin measurement (mass/volume)on 12-10-2021 Hemoglobin (Bld) [Mass/Vol] 12.3 g/dL 12.0-15.0 [facility] Work Phone: Blood lymphocytes/100 leukoc yteson 12-10-2021 Lymphocytes/100 WBC (Bld) 7.3 % 19-41 [facility] Work Phone: Blood manual differential co mment interpretation (narrative result)on 12-10-2021 Manual differential comment Sonny (Bld) [Interp] SCANNED [facility] Work Phone: Comment on above: MONOCYTOSIS NOTED Blood monocytes/100 leukocyt eson 12-10-2021 Monocytes/100 WBC (Bld) 12.5 % 0-10 [facility] Work Phone: Blood platelet mean volumeon 12-10-2021 Platelet mean volume (Bld) [Entitic vol] 9.2 fL 6.2-12.0 [facility] Work Phone: Determination of erythrocyte mean corpuscular volume (MCV)on 12-10-2021 MCV (RBC) [Entitic vol] 89.5 fL 81-99 [facility] Work Phone: Hematocrit Auto (Bld) [Volum e fraction]on 12-10-2021 Hematocrit (Bld) [Volume fraction] 36.5 % 37-47 [facility] Work Phone: Ketones Test strip Ql (U)on 12-10-2021 Ketones Ql (U) 150 mg/dl Negative [facility] Work Phone: Comment on above: CRITICAL VALUE *HCRI TICAL VALUE VERIFIED. CALLED TO Lida ROBERTS RN ER12/11/21 0013 Cristal Nicholas.RESULTS READ BACK BY SAME. Laboratory - Chemistry and C hemistry - challengeon 12-10-2021 ALP [Catalytic activity/Vol] 95 U/L 45-117 [facility] Work Phone: ALT [Catalytic activity/Vol] 48 U/L 13-56 [facility] Work Phone: CK [Catalytic activity/Vol] 5736 U/L 26-192 [facility] Work Phone: CO2 [Moles/Vol] 20.0 mmol/L 21.0-32.0 [facility] Work Phone: Globulin (S) [Mass/Vol] 4.0 g/dL 2.2-4.2 [facility] Work Phone: Magnesium [Mass/Vol] 2.2 mg/dL 1.6-2.6 [facility] Work Phone: Urea nitrogen/Creatinine [Mass ratio] 30.9 mg/mg 10-20 [facility] Work Phone: Laboratory - Hematology and Cell countson 12-10-2021 Erythrocyte distribution width (RBC) [Entitic vol] 45.7 fL 35.1-43.9 [facility] Work Phone: Erythrocyte distribution width (RBC) [Ratio] 13.9 % 11.6-14.6 [facility] Work Phone: Immature granulocytes/100 WBC (Bld) 0.600 % 0.0-0.9 [facility] Work Phone: Comment on above: IG% - Immature Granu locytes (promyelocytes, myelocytes and metamyelocytes) > 1% indicates that a LEFT SHIFT is Present. MCH (RBC) [Entitic mass] 30.1 pg 27.0-32.0 [facility] Work Phone: Nucleated RBC/100 WBC (Bld) [Ratio] 0 % 0-5 [facility] Work Phone: MCHC Auto (RBC) [Mass/Vol]on 12-10-2021 MCHC (RBC) [Mass/Vol] 33.7 g/dL 32-36 [facility] Work Phone: Mucus LM Ql (Urine sed)on Mucus Ql (Urine sed) 0 SEEN /hpf [facility] Work Phone: Nitrite Test strip Ql (U)on 12-10-2021 Nitrite Ql (U) Negative Negative [facility] Work Phone: No Panel Informationon 12-10 Estimated Creatinine Clearance Calc 48.07 ml/min [facility] Work Phone: Estimated GFR (MDRD) Amer 84 mL/min >60 [facility] Work Phone: Comment on above: GFR Calc Estimated GFR (MDRD) Non-Af Amer 69 mL/min >60 [facility] Work Phone: Comment on above: Non- GFR Calc Platelets bldon 12-10-2021 Platelets (Bld) [#/Vol] 283 10*3/uL 150-450 [facility] Work Phone: Protein Test strip Ql (U)on 12-10-2021 Protein Ql (U) 100 mg/dl Negative [facility] Work Phone: Review by pathologiston - Pathologist review Sonny (Unsp spec) [Interp] May foll [facility] Work Phone: Serum or plasma albumin candice urement (mass/volume)on 12-10-2021 Albumin [Mass/Vol] 3.2 g/dL 3.2-5.0 [facility] Work Phone: Serum or plasma albumin/glob ulin mass ratioon 12-10-2021 Albumin/Globulin [Mass ratio] 0.8 {ratio} 0.9-2.4 [facility] Work Phone: Serum or plasma calcium candice urement (mass/volume)on 12-10-2021 Calcium [Mass/Vol] 8.7 mg/dL 8.5-10.1 [facility] Work Phone: Serum or plasma creatinine m easurement (mass/volume)on 12-10-2021 Creatinine [Mass/Vol] 0.84 mg/dL 0.55-1.02 [facility] Work Phone: Comment on above: The validity of the calculated GFR & GFRAA in patients over 70 years has not been determined. Clinical correlation is essential. Serum or plasma urea nitroge n measurement (mass/volume)on 12-10-2021 Urea nitrogen [Mass/Vol] 26 mg/dL 7-18 [facility] Work Phone: Squamous epithelial cells de tection in urine sediment by light microscopyon 12-10-2021 Epithelial cells.squamous LM Ql (Urine sed) 0 SEEN /hpf 5-10 [facility] Work Phone: Thin prep Papanicolaou smear with manual screeningon 12-10-2021 Thin prep Papanicolaou smear with manual screening 133 U/L 15-37 [facility] Work Phone: Thin prep Papanicolaou smear with manual screening 14 5-15 [facility] Work Phone: Urine blood detectionon 11-14 RBC Ql (U) 250 /ul Negative [facility] Work Phone: RBC Ql (U) 0-5 SEEN /hpf 0-5 [facility] Work Phone: Urine clarityon 12-10-2021 Clarity (U) Sl. Cloudy Clear [facility] Work Phone: Urine color determinationon 12-10-2021 Color (U) Yellow Yellow [facility] Work Phone: Urine glucose detectionon Glucose Ql (U) Normal mg/dl Normal [facility] Work Phone: Urine leukocyte esterase det ection by dipstickon 12-10-2021 Leukocyte esterase Test strip Ql (U) 100 /ul Negative [facility] Work Phone: Urine pHon 12-10-2021 pH (U) 6.0 [pH] 5.0 - 8.0 [facility] Work Phone: Urine sediment bacteria coun t by microscopy (number/high power field)on 12-10-2021 Bacteria LM.HPF (Urine sed) [#/Area] 4 /[HPF] None Seen [facility] Work Phone: Urine specific gravity measu rementon 12-10-2021 Specific gravity (U) [Rel density] 1.020 1.002-1.03 0 [facility] Work Phone: Urobilinogen Auto test strip Ql (U)on 12-10-2021 Urobilinogen Ql (U) 1 mg/dl Normal [facility] Work Phone: CT Up Ext w/o Contrast Lefto n 07-03-2020 CT Up Ext w/o Contrast Left Patient Name: SAPNA BULLARD Computed Tomography ACCESSION EXAM DATE/TIME PROCEDURE ORDERING PROVIDER [id number] 07/03/2020 13:[address] Up Ext w/o Contrast Darron -DAX SHANKS Left CPT code 46519 Reason For Exam (CT Up Ext w/o [...] Transcribed Date and Time: 07/04/2020 11:26 Normal [facility] Culture, urine Bacteria identified Cx Nom (U) Presumptive E. coli [facility] Work Phone: Bacteria identified Cx Nom (U) Positive [facility] Work Phone: Laboratory - Microbiology an d Antimicrobial susceptibility Bacteria identified Cx Nom (Bld) No growth in 5 days. [facility] Work Phone: Vital Signs Date Time Vital Sign Value Performing Clinician Facility 03-14-2025 13:24-0400 Body height 165.[address] Genevieve Wu MD Work Phone: [facility] 02-19-2025 08:52-0400 Body temperature 97.6 [degF] Dr. Genevieve Wu MD Work Phone: [facility] 02-19-2025 08:52-0400 Diastolic blood pressure 54 mm[Hg] Dr. Genevieve Wu MD Work Phone: [facility] 02-19-2025 08:52-0400 Heart rate 85 /min Dr. Genevieve Wu MD Work Phone: [facility] 02-19-2025 08:52-0400 Respiratory rate 18 /min Dr. Genevieve Wu MD Work Phone: [facility] 02-19-2025 08:52-0400 SaO2% (BldA) [Mass fraction] 98 % Dr. Genevieve Wu MD Work Phone: [facility] 02-19-2025 08:52-0400 Systolic blood pressure 113 mm[Hg] Dr. Genevieve Wu MD Work Phone: [facility] 02-14-2025 16:26-0400 Body height 165.[address] Genevieve Wu MD Work Phone: [facility] 02-14-2025 16:26-0400 Body weight 55.[address] Genevieve Wu MD Work Phone: [facility] 02-14-2025 15:37-0400 Body mass index (BMI) [Ratio] 20.2 kg/m2 Dr. Genevieve Wu MD Work Phone: [facility] 02-14-2025 15:00-0400 Body temperature 98.9 [degF] Dr. Genevieve Wu MD Work Phone: [facility] 02-14-2025 15:00-0400 Diastolic blood pressure 78 mm[Hg] Dr. Genevieve Wu MD Work Phone: [facility] 02-14-2025 15:00-0400 Heart rate 89 /min Dr. Genevieve Wu MD Work Phone: [facility] 02-14-2025 15:00-0400 Respiratory rate 16 /min Dr. Genevieve Wu MD Work Phone: [facility] 02-14-2025 15:00-0400 SaO2% (BldA) [Mass fraction] 98 % Dr. Genevieve Wu MD Work Phone: [facility] 02-14-2025 15:00-0400 Systolic blood pressure 118 mm[Hg] Dr. Genevieve Wu MD Work Phone: [facility] 02-14-2025 09:36-0400 Body height 165.[address] Genevieve Wu MD Work Phone: [facility] 02-14-2025 09:36-0400 Body mass index (BMI) [Ratio] 21.3 kg/m2 Dr. Genevieve Wu MD Work Phone: [facility] 02-14-2025 09:36-0400 Body weight 58.[address] Genevieve Wu MD Work Phone: [facility] 12-07-2024 05:45-0400 Body mass index (BMI) [Ratio] 19.8 kg/m2 Dr. Genevieve Wu MD Work Phone: [facility] 12-07-2024 05:45-0400 Body temperature 96.4 [degF] Dr. Genevieve Wu MD Work Phone: [facility] 12-07-2024 05:45-0400 Body weight 53.[address] Genevieve Wu MD Work Phone: [facility] 12-07-2024 05:45-0400 Diastolic blood pressure 58 mm[Hg] Dr. Genevieve Wu MD Work Phone: [facility] 12-07-2024 05:45-0400 Heart rate 49 /min Dr. Genevieve Wu MD Work Phone: [facility] 12-07-2024 05:45-0400 Respiratory rate 16 /min Dr. Genevieve Wu MD Work Phone: [facility] 12-07-2024 05:45-0400 SaO2% (BldA) [Mass fraction] 95 % Dr. Genevieve Wu MD Work Phone: [facility] 12-07-2024 05:45-0400 Systolic blood pressure 93 mm[Hg] Dr. Genevieve Wu MD Work Phone: [facility] 11-29-2024 10:09-0400 Body height 165.[address] Genevieve Wu MD Work Phone: [facility] 11-29-2024 10:09-0400 Body mass index (BMI) [Ratio] 19.6 kg/m2 Dr. Genevieve Wu MD Work Phone: [facility] 11-29-2024 10:09-0400 Body temperature 94.6 [degF] Dr. Genevieve Wu MD Work Phone: [facility] 11-29-2024 10:09-0400 Body weight 53.[address] Genevieve Wu MD Work Phone: [facility] 11-29-2024 10:09-0400 Diastolic blood pressure 64 mm[Hg] Dr. Genevieve Wu MD Work Phone: [facility] 11-29-2024 10:09-0400 Heart rate 55 /min Dr. Genevieve Wu MD Work Phone: [facility] 11-29-2024 10:09-0400 Respiratory rate 16 /min Dr. Genevieve Wu MD Work Phone: [facility] 11-29-2024 10:09-0400 SaO2% (BldA) [Mass fraction] 92 % Dr. Genevieve Wu MD Work Phone: [facility] 11-29-2024 10:09-0400 Systolic blood pressure 125 mm[Hg] Dr. Genevieve Wu MD Work Phone: [facility] 10-05-2024 08:22-0400 Body mass index (BMI) [Ratio] 19.6 kg/m2 Dr. Nicci Lemus MD Work Phone: [facility] 10-05-2024 08:22-0400 Body weight 53.[address] Nicci Lemus MD Work Phone: [facility] 10-05-2024 08:22-0400 Diastolic blood pressure 65 mm[Hg] Dr. Nicci Lemus MD Work Phone: [facility] 10-05-2024 08:22-0400 Heart rate 75 /min Dr. Nicci Lemus MD Work Phone: [facility] 10-05-2024 08:22-0400 Respiratory rate 18 /min Dr. Nicci Lemus MD Work Phone: [facility] 10-05-2024 08:22-0400 Systolic blood pressure 111 mm[Hg] Dr. Nicci Lemus MD Work Phone: [facility] 09-08-2024 08:39-0400 Body mass index (BMI) [Ratio] 19.4 kg/m2 Dr. Nicci Lemus MD Work Phone: [facility] 09-08-2024 08:39-0400 Body temperature 97.5 [degF] Dr. Nicci Lemus MD Work Phone: [facility] 09-08-2024 08:39-0400 Body weight 53.[address] Nicci Lemus MD Work Phone: [facility] 09-08-2024 08:39-0400 Diastolic blood pressure 77 mm[Hg] Dr. Nicci Lemus MD Work Phone: [facility] 09-08-2024 08:39-0400 Heart rate 72 /min Dr. Nicci Lemus MD Work Phone: [facility] 09-08-2024 08:39-0400 Respiratory rate 18 /min Dr. Nicci Lemus MD Work Phone: [facility] 09-08-2024 08:39-0400 SaO2% (BldA) [Mass fraction] 99 % Dr. Nicci Lemus MD Work Phone: [facility] 09-08-2024 08:39-0400 Systolic blood pressure 121 mm[Hg] Dr. Nicci Lemus MD Work Phone: [facility] 07-19-2024 09:58-0500 Body height 165.[address] Nicci Lemus MD Work Phone: [facility] 07-19-2024 09:58-0500 Body mass index (BMI) [Ratio] 18.3 kg/m2 Dr. Nicci Lemus MD Work Phone: [facility] 07-19-2024 09:58-0500 Body temperature 98.6 [degF] Dr. Nicci Lemus MD Work Phone: [facility] 07-19-2024 09:58-0500 Body weight 49.[address] Nicci Lemus MD Work Phone: [facility] 07-19-2024 09:58-0500 Diastolic blood pressure 74 mm[Hg] Dr. Nicci Lemus MD Work Phone: [facility] 07-19-2024 09:58-0500 Heart rate 89 /min Dr. Nicci Lemus MD Work Phone: [facility] 07-19-2024 09:58-0500 Respiratory rate 15 /min Dr. Nicci Lemus MD Work Phone: [facility] 07-19-2024 09:58-0500 SaO2% (BldA) [Mass fraction] 96 % Dr. Nicci Lemus MD Work Phone: [facility] 07-19-2024 09:58-0500 Systolic blood pressure 108 mm[Hg] Dr. Nicci Lemus MD Work Phone: [facility] 07-21-2023 08:45-0500 Body temperature 98 [degF] Dr. Nicholas Cohen Work Phone: [facility] 07-21-2023 08:45-0500 Body weight 48.[address] Nicholas Cohen Work Phone: [facility] 07-21-2023 08:45-0500 Diastolic blood pressure 82 mm[Hg] Dr. Nicholas Cohen Work Phone: [facility] 07-21-2023 08:45-0500 Heart rate 70 /min Dr. Nicholas Cohen Work Phone: [phone] [place] [address] 07-21-2023 08:45-0500 Respiratory rate 15 /min Dr. Nicholas Cohen Work Phone: [phone] [address] 07-21-2023 08:45-0500 SaO2% (BldA) [Mass fraction] 98 % Dr. Nicholas Cohen Work Phone: [facility] 07-21-2023 08:45-0500 Systolic blood pressure 120 mm[Hg] Dr. Nicholas Cohen Work Phone: [facility] 05-14-2023 15:37-0500 Body height 156.21 cm Jaida Sanchez RN [facility], [facility].; [facility]. 05-14-2023 15:37-0500 Body mass index (BMI) [Ratio] 19.61 kg/m2 Jaida Sanchez RN [facility], [facility].; [facility]. 05-14-2023 15:37-0500 Body surface area Derived from formula 1.45 m2 Jaida Sanchez [facility].; [facility]. 05-14-2023 15:37-0500 Body weight 47.85 kg Jaida Sanchez [facility].; [facility] [employer] [facility]. 05-14-2023 15:37-0500 Diastolic blood pressure 68 mm[Hg] Jaida Sanchez RN [facility].; [facility]. Comment on above: Patient Position: Sitting; Cuff Location : Left Arm; Cuff Size: Standard 05-14-2023 15:37-0500 Heart rate 53 /min Jaida Sanchez RN [facility].; [facility]. Comment on above: Pattern: Regular 05-14-2023 15:37-0500 Systolic blood pressure 117 mm[Hg] Jaida Sanchez RN [facility].; [facility]. Comment on above: Patient Position: Sitting; Cuff Location : Left Arm; Cuff Size: Standard 04-23-2023 11:48-0500 Body temperature 97.3 [degF] Dr. Lalo Palm Work Phone: [facility] 04-23-2023 11:48-0500 Diastolic blood pressure 68 mm[Hg] Dr. Lalo Palm Work Phone: [facility] 04-23-2023 11:48-0500 Heart rate 69 /min Dr. Lalo Palm Work Phone: [facility] 04-23-2023 11:48-0500 Respiratory rate 16 /min Dr. Lalo Palm Work Phone: [facility] 04-23-2023 11:48-0500 SaO2% (BldA) [Mass fraction] 97 % Dr. Lalo Palm Work Phone: [facility] 04-23-2023 11:48-0500 Systolic blood pressure 124 mm[Hg] Dr. Lalo Palm Work Phone: [facility] 04-23-2023 05:13-0500 Body mass index (BMI) [Ratio] 18.1 kg/m2 Dr. Lalo Palm Work Phone: [facility] 04-23-2023 05:13-0500 Body weight 49.[address] Lalo Palm Work Phone: [facility] 04-20-2023 14:09-0500 Body height [address] Lalo Palm Work Phone: [facility] 04-05-2023 11:42-0400 Body mass index (BMI) [Ratio] 17.8 kg/m2 Dr. Lalo Palm Work Phone: [facility] 04-05-2023 11:42-0400 Body temperature 97.8 [degF] Dr. Lalo Palm Work Phone: [facility] 04-05-2023 11:42-0400 Body weight 47.[address] Lalo Plam Work Phone: [facility] 04-05-2023 11:42-0400 Diastolic blood pressure 64 mm[Hg] Dr. Lalo Palm Work Phone: [facility] 04-05-2023 11:42-0400 Heart rate 50 /min Dr. Lalo Palm Work Phone: [facility] 04-05-2023 11:42-0400 Respiratory rate 14 /min Dr. Lalo Palm Work Phone: [facility] 04-05-2023 11:42-0400 SaO2% (BldA) [Mass fraction] 91 % Dr. Lalo Palm Work Phone: [facility] 04-05-2023 11:42-0400 Systolic blood pressure 106 mm[Hg] Dr. Lalo Palm Work Phone: [facility] 03-17-2023 08:45-0400 Body mass index (BMI) [Ratio] 18.3 kg/m2 Dr. Lalo Palm Work Phone: [facility] 03-17-2023 08:45-0400 Body temperature 98.8 [degF] Dr. Lalo Palm Work Phone: [facility] 03-17-2023 08:45-0400 Body weight 48.[address] Lalo Palm Work Phone: [facility] 03-17-2023 08:45-0400 Diastolic blood pressure 70 mm[Hg] Dr. Lalo Palm Work Phone: [facility] 03-17-2023 08:45-0400 Heart rate 71 /min Dr. Lalo Palm Work Phone: [facility] 03-17-2023 08:45-0400 Respiratory rate 16 /min Dr. Lalo Palm Work Phone: [facility] 03-17-2023 08:45-0400 SaO2% (BldA) [Mass fraction] 95 % Dr. Lalo Palm Work Phone: [facility] 03-17-2023 08:45-0400 Systolic blood pressure 128 mm[Hg] Dr. Lalo Palm Work Phone: [facility] 11-13-2022 10:17-0400 Body height 156.21 cm Sisi Thurman RN [facility], [facility].; [facility] 11-13-2022 10:17-0400 Body mass index (BMI) [Ratio] 21.19 kg/m2 Sisi Thurman RN [facility], [facility]. 11-13-2022 10:17-0400 Body surface area Derived from formula 1.5 m2 Sisi Thurman RN [facility], [facility].; [facility] 11-13-2022 10:17-0400 Body weight 51.71 kg Sisi Thurman RN [facility], [facility].; [facility] 11-13-2022 10:17-0400 Diastolic blood pressure 78 mm[Hg] Sisi Thurman RN [facility] [employer] [facility] Comment on above: Patient Position: Sitting; Cuff Location : Left Arm; Cuff Size: Standard 11-13-2022 10:17-0400 Heart rate 57 /min Sisi Thurman RN [facility], [facility].; [facility] [employer] [facility] Comment on above: Pattern: Regular 11-13-2022 10:17-0400 Systolic blood pressure 127 mm[Hg] Sisi Thurman RN [facility], [facility] Comment on above: Patient Position: Sitting; Cuff Location : Left Arm; Cuff Size: Standard 06-30-2022 09:15-0500 Body height 156.21 cm DUNCAN Sound PharmaceuticalsTTER MANAGER ASSET-C Work Phone: [facility] [employer] [facility].; [facility] [employer] [facility]. 06-30-2022 09:15-0500 Body mass index (BMI) [Ratio] 20.82 kg/m2 DUNCAN ProtoStarTETTER MANAGER ASSET-C Work Phone: [facility] [employer] [facility].; [facility] [employer] [facility]. 06-30-2022 09:15-0500 Body surface area Derived from formula 1.49 m2 DUNCAN Sound PharmaceuticalsTTER MANAGER ASSET-C Work Phone: [facility] [employer] [facility].; [facility] [employer] [facility]. 06-30-2022 09:15-0500 Body weight 50.8 kg DUNCAN ProtoStarTETTER MANAGER ASSET-C Work Phone: [facility] [employer] [facility]; [facility] [employer] [facility]. 06-30-2022 09:15-0500 Diastolic blood pressure 68 mm[Hg] DUNCAN ProtoStarTETTER MANAGER ASSET-C Work Phone: [facility] [facility]; [facility] [employer] [facility]. Comment on above: Patient Position: Sitting; Cuff Location : Left Arm; Cuff Size: Standard 06-30-2022 09:15-0500 Heart rate 59 /min DUNCAN Sound PharmaceuticalsTTER MANAGER ASSET-C Work Phone: [facility] [employer] [facility]; [facility] [employer] [facility]. Comment on above: Pattern: Regular 06-30-2022 09:15-0500 Inhaled oxygen concentration 21 % [place] - It's what's in storeTETTER MANAGER ASSET-C Work Phone: [facility] [employer] [facility]; [facility] [employer] [facility]. Comment on above: Room air 01-16-2023 09:15-0500 SaO2% (BldA) [Mass fraction] 92 % DUNCAN ZAVALA MANAGER ASSET-C Work Phone: [facility]; [facility] [employer] [facility]. 06-30-2022 09:15-0500 Systolic blood pressure 114 mm[Hg] DUNCAN ZAVALA MANAGER ASSET-C Work Phone: [facility]; [facility] [employer] [facility]. Comment on above: Patient Position: Sitting; Cuff Location : Left Arm; Cuff Size: Standard 04-07-2022 11:05-0400 Body height 156.21 cm [facility] 04-07-2022 11:05-0400 Body mass index (BMI) [Ratio] 23.42 kg/m2 [facility]. 04-07-2022 11:05-0400 Body surface area Derived from formula 1.56 m2 [facility] [employer] [facility]. 04-07-2022 11:05-0400 Body weight 57.15 kg [facility] [employer] [facility]. 04-07-2022 11:05-0400 Diastolic blood pressure 70 mm[Hg] [facility] [employer] [facility]. Comment on above: Patient Position: Sitting; Cuff Location : Left Arm; Cuff Size: Standard 04-07-2022 11:05-0400 Heart rate 51 /min [facility] [employer] [facility].; [employer] [facility] [employer] [facility]. Comment on above: Pattern: Regular 04-07-2022 11:05-0400 Inhaled oxygen concentration 21 % [facility] [employer] [facility].; [employer] [facility] [employer] [facility]. Comment on above: Room air 04-07-2022 11:05-0400 SaO2% (BldA) [Mass fraction] 98 % [facility]. 04-07-2022 11:05-0400 Systolic blood pressure 159 mm[Hg] IVÁN [facility].; [facility]. Comment on above: Patient Position: Sitting; Cuff Location : Left Arm; Cuff Size: Standard 02-15-2022 15:09-0400 Diastolic blood pressure 68 mm[Hg] Dr. Lalo Palm Work Phone: [facility] Work Phone: 02-15-2022 15:09-0400 Systolic blood pressure 124 mm[Hg] Dr. Lalo Palm Work Phone: [facility] Work Phone: 02-15-2022 14:11-0400 Heart rate 59 /min Dr. Lalo Palm Work Phone: [facility] Work Phone: 02-15-2022 14:11-0400 Respiratory rate 14 /min Dr. Lalo Palm Work Phone: [facility] Work Phone: 02-15-2022 14:11-0400 SaO2% (BldA) [Mass fraction] 96 % Dr. Lalo Palm Work Phone: [facility] Work Phone: 02-15-2022 12:17-0400 Body height 162.[address] Lalo Palm Work Phone: [facility] Work Phone: 02-15-2022 12:17-0400 Body mass index (BMI) [Ratio] 21.9 kg/m2 Dr. Lalo Palm Work Phone: [facility] Work Phone: 02-15-2022 12:17-0400 Body temperature 96.9 [degF] Dr. Lalo Palm Work Phone: [facility] Work Phone: 02-15-2022 12:17-0400 Body weight 58.[address] Lalo Palm Work Phone: [facility] Work Phone: 02-11-2022 10:59-0400 Body mass index (BMI) [Ratio] 23.1 kg/m2 Dr. Lalo Palm Work Phone: [facility] Work Phone: 02-11-2022 10:59-0400 Body temperature 98.2 [degF] Dr. Lalo Palm Work Phone: [facility] Work Phone: 02-11-2022 10:59-0400 Body weight 59.[address] Lalo Palm Work Phone: [facility] Work Phone: 02-11-2022 10:59-0400 Diastolic blood pressure 80 mm[Hg] Dr. Lalo Palm Work Phone: [facility] Work Phone: 02-11-2022 10:59-0400 Heart rate 57 /min Dr. Lalo Palm Work Phone: [facility] Work Phone: 02-11-2022 10:59-0400 Respiratory rate 16 /min Dr. Lalo Palm Work Phone: [facility] Work Phone: 02-11-2022 10:59-0400 SaO2% (BldA) [Mass fraction] 97 % Dr. Lalo Palm Work Phone: [facility] Work Phone: 02-11-2022 10:59-0400 Systolic blood pressure 130 mm[Hg] Dr. Lalo Palm Work Phone: [facility] Work Phone: 12-28-2021 10:24-0400 Body temperature 98 [degF] Dr. Lalo Palm Work Phone: [facility] Work Phone: 12-28-2021 10:24-0400 Diastolic blood pressure 60 mm[Hg] Dr. Lalo Palm Work Phone: [facility] Work Phone: 12-28-2021 10:24-0400 Heart rate 67 /min Dr. Lalo Palm Work Phone: [facility] Work Phone: 12-28-2021 10:24-0400 Respiratory rate 16 /min Dr. Lalo Palm Work Phone: [facility] Work Phone: 12-28-2021 10:24-0400 SaO2% (BldA) [Mass fraction] 95 % Dr. Lalo Palm Work Phone: [facility] Work Phone: 12-28-2021 10:24-0400 Systolic blood pressure 114 mm[Hg] Dr. Lalo Palm Work Phone: [facility] Work Phone: 12-26-2021 20:32-0400 Diastolic blood pressure 69 mm[Hg] Dr. Lalo Palm Work Phone: [facility] Work Phone: 12-26-2021 20:32-0400 Heart rate 79 /min Dr. Lalo Palm Work Phone: [facility] Work Phone: 12-26-2021 20:32-0400 Systolic blood pressure 126 mm[Hg] Dr. Lalo Palm Work Phone: [facility] Work Phone: 12-26-2021 15:59-0400 Body temperature 97.4 [degF] Dr. Lalo Palm Work Phone: [facility] Work Phone: 12-26-2021 15:59-0400 Respiratory rate 18 /min Dr. Lalo Palm Work Phone: [facility] Work Phone: 12-26-2021 15:59-0400 SaO2% (BldA) [Mass fraction] 98 % Dr. Lalo Palm Work Phone: [facility] Work Phone: 12-25-2021 16:45-0400 Body height [address] Lalo Palm Work Phone: [facility] Work Phone: 12-25-2021 16:45-0400 Body weight 58.[address] Lalo Palm Work Phone: [facility] Work Phone: 12-13-2021 16:09-0400 Body mass index (BMI) [Ratio] 23.3 kg/m2 Dr. Lalo Palm Work Phone: [facility] Work Phone: 12-13-2021 15:17-0400 Body temperature 97.9 [degF] Dr. Lalo Palm Work Phone: [facility] Work Phone: 12-13-2021 15:17-0400 Diastolic blood pressure 74 mm[Hg] Dr. Lalo Palm Work Phone: [facility] Work Phone: 12-13-2021 15:17-0400 Heart rate 68 /min Dr. Lalo Palm Work Phone: [facility] Work Phone: 12-13-2021 15:17-0400 Respiratory rate 18 /min Dr. Lalo Palm Work Phone: [facility] Work Phone: 12-13-2021 15:17-0400 SaO2% (BldA) [Mass fraction] 98 % Dr. Lalo Palm Work Phone: [facility] Work Phone: 12-13-2021 15:17-0400 Systolic blood pressure 142 mm[Hg] Dr. Lalo Palm Work Phone: [facility] Work Phone: 12-13-2021 06:00-0400 Body weight 63.[address] Lalo Palm Work Phone: [facility] Work Phone: 12-11-2021 14:03-0400 Body height [address] Lalo Palm Work Phone: [facility] Work Phone: 12-11-2021 01:45-0400 Body mass index (BMI) [Ratio] 16.7 kg/m2 Dr. Lalo Palm Work Phone: [facility] Work Phone: 12-11-2021 01:03-0400 Body temperature 98.6 [degF] Dr. Lalo Palm Work Phone: [facility] Work Phone: 12-11-2021 01:03-0400 Diastolic blood pressure 69 mm[Hg] Dr. Lalo Palm Work Phone: [facility] Work Phone: 12-11-2021 01:03-0400 Heart rate 86 /min Dr. Lalo Palm Work Phone: [facility] Work Phone: 12-11-2021 01:03-0400 Respiratory rate 15 /min Dr. Lalo Palm Work Phone: [facility] Work Phone: 12-11-2021 01:03-0400 SaO2% (BldA) [Mass fraction] 94 % Dr. Lalo Palm Work Phone: [facility] Work Phone: 12-11-2021 01:03-0400 Systolic blood pressure 120 mm[Hg] Dr. Lalo Palm Work Phone: [facility] Work Phone: 12-10-2021 22:22-0400 Inhaled oxygen flow rate 3 L/min Dr. Lalo Palm Work Phone: [facility] Work Phone: 12-10-2021 20:16-0400 Body height 165.[address] Lalo Palm Work Phone: [facility] Work Phone: 12-10-2021 20:16-0400 Body mass index (BMI) [Ratio] 22.3 kg/m2 Dr. Lalo Palm Work Phone: [facility] Work Phone: 12-10-2021 20:16-0400 Body weight 60.[address] Lalo Palm Work Phone: [facility] Work Phone: 09-26-2021 15:46-0400 Body temperature 97.8 [degF] Dr. Lalo Palm Work Phone: [facility] Work Phone: 09-26-2021 15:46-0400 Diastolic blood pressure 80 mm[Hg] Dr. Lalo Palm Work Phone: [facility] Work Phone: 09-26-2021 15:46-0400 Heart rate 91 /min Dr. Lalo Palm Work Phone: [facility] Work Phone: 09-26-2021 15:46-0400 Respiratory rate 16 /min Dr. Lalo Palm Work Phone: [facility] Work Phone: 09-26-2021 15:46-0400 SaO2% (BldA) [Mass fraction] 96 % Dr. Lalo Palm Work Phone: [facility] Work Phone: 09-26-2021 15:46-0400 Systolic blood pressure 128 mm[Hg] Dr. Lalo Palm Work Phone: [facility] Work Phone: Encounters Encounter Date Encounter Type Care Provider Facility Start: 04-24-2025 ambulatory Genevieve Galavize OLS Fa cility:[facility] Start: 03-21-2025 End: 03-21-2025 ambulatory Efewkarleybe Oleghe Facility:[facility] Start: 03-21-2025 ambulatory Efhaseeb Galavize OLS Fa cility:[facility] Start: 03-07-2025 Genevieve Nguyễn L [facility] [place] Start: 03-07-2025 End: 03-07-2025 ambulatory Efewkarleybe Guillaumee OLS Facility:[facility] Start: 02-27-2025 ambulatory Efhaseeb Wu Facili ty:[facility] Start: 02-27-2025 Genevieve BARRERA L [facility] [place] Start: 02-21-2025 Genevieve Nguyễn L - [place] Start: 02-20-2025 End: 02-21-[address] Genevieve Wu MD Work Phone: -[email or web address] Start: 02-20-2025 End: 02-20-2025 Barbara DELUNA -[email or web address] Work Phone: Start: 02-19-2025 Dr. Felicia Paniagua MD - [facility] Work Phone: Start: 02-18-2025 Dr. Felicia Paniagua MD - [facility] Work Phone: Start: 02-17-2025 Dr. Karon Nunes MD - [facility] Work Phone: Start: 02-16-2025 Dr. Felicia Paniagua MD - [facility] Work Phone: Start: 02-15-2025 Dr. Felicia Paniagua MD - [facility] Work Phone: Start: 02-14-2025 End: 02-14-[address] Genevieve Wu MD Work Phone: -[facility] Start: 02-14-2025 End: 02-14-2025 Barbara Castro NP-C -[facility] Work Phone: Start: 02-14-2025 ambulatory Genevieve Wu Facili ty:[facility] Start: 02-14-2025 End: 02-19-2025 Evaluation and management of inpatient Dr. Genevieve Wu MD Work Phone: -[facility] Start: 02-14-2025 End: 02-19-2025 Dr. Liudmila Morin MD -[facility] Work Phone: Start: 01-30-2025 ambulatory Genevieve Thrasheri ty:[facility] Start: 01-30-2025 Genevieve [address] Start: 01-20-2025 End: 01-20-2025 ambulatory [facility] Start: 01-16-2025 ambulatory [facility] Start: 01-02-2025 End: 01-02-[address] 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 Genevieve Wu MD Work Phone: [facility] Work Phone: Start: 11-29-2024 End: 11-29-[address] Vish Cook MD -[facility] Work Phone: Start: 11-29-2024 End: 11-29-2024 Dr. Vish Cook MD -[facility] Work Phone: Start: 11-29-2024 End: 11-29-[address] Genevieve Wu MD Work Phone: [facility] Work Phone: Start: 11-28-2024 End: 11-28-[address] Willian Palm DO -[facility] Work Phone: Start: 11-28-2024 End: 11-28-[address] Genevieve Wu MD Work Phone: [facility] Work Phone: Start: 11-28-2024 End: 11-28-2024 Departed Referred Genevieve [address] Start: 11-28-2024 Registered Referred Genevieve [address] [place] [facility] Start: 11-28-2024 End: 11-28-2024 Genevieve NguyễnJanes [address] [facility] Start: 11-28-2024 End: 11-28-2024 ambulatory Willian Palm Facility:[facility] Start: 11-21-2024 End: 11-21-[address] Genevieve Wu MD Work Phone: [facility] Start: 11-21-2024 End: 11-21-2024 Patient encounter procedure Barbara DELUNA -[facility] Work Phone: Start: 11-21-2024 End: 11-21-2024 Barbara DELUNA -[facility] Work Phone: Start: 11-08-2024 Non-patient / Non-visit Dr. Sharon Crouch MD -[facility] Start: 11-08-2024 End: 11-08-[address] Nicci Lemus MD Work Phone: [facility] Work Phone: Start: 11-08-2024 End: 11-08-[address] Yunior Desai MD -[facility] Work Phone: Start: 11-08-2024 End: 11-08-2024 Dr. Sharon Crouch MD -[facility] Start: 11-08-2024 End: 11-08-2024 ambulatory Yunior Desai Facility:[facility] Start: 10-31-2024 End: 10-31-2024 Departed Referred Genevieve Wu MD [facility] Start: 10-31-2024 End: 10-31-2024 Genevieve Wu MD [facility] Start: 10-31-2024 End: 10-31-2024 ambulatory Genevieve CUBA Facility:[facility] Start: 10-27-2024 End: 10-27-[address] Genevieve Wu MD Work Phone: -[facility] Start: 10-27-2024 End: 10-27-2024 Patient encounter procedure Barbara DELUNA -[facility] Work Phone: Start: 10-27-2024 End: 10-27-2024 Barbara DELUNA -[facility] Work Phone: Start: 10-05-2024 End: 10-05-[address] Yunior Desai MD -[facility] Work Phone: Start: 10-05-2024 End: 10-05-2024 ambulatory Yunior Desai Facility:[facility] Start: 10-03-2024 End: 10-03-[address] Nicci Lemus MD Work Phone: [facility] Work Phone: Start: 10-03-2024 End: 10-03-2024 Departed Referred Genevieve Bailey Start: 10-03-2024 End: 10-03-2024 ambulatory Efhaseeb CUBA Facility:[facility] Start: 09-08-2024 End: 09-08-[address] Willian Palm DO -[facility] Work Phone: Start: 09-08-2024 End: 09-08-2024 ambulatory Willian Palm Facility:[facility] Start: 08-29-2024 End: 08-29-2024 Departed Referred Genevieve Bailey Start: 08-29-2024 End: 08-29-2024 ambulatory Efhaseeb CUBA Facility:[facility] Start: 08-11-2024 End: 08-11-2024 ambulatory [facility] Start: 08-03-2024 End: 08-03-[address] Genevieve Wu MD -[facility] Work Phone: Start: 08-03-2024 End: 08-03-2024 ambulatory Efewongbe Jazmin Facility:[facility] Start: 08-01-2024 ambulatory Efhaseeb CUBA Fa cility:[facility] Start: 08-01-2024 Registered Referred Genevieve Bailey Start: 07-19-2024 End: 07-19-[address] Vish Cook MD -[facility] Work Phone: Start: 07-19-2024 End: 07-19-2024 ambulatory Nicci Lemus Facility:[facility] Start: 07-12-2024 End: 07-12-2024 ambulatory Genevieve Wu Facility:[facility] Start: 07-12-2024 End: 07-12-[address] Genevieve Wu MD -[email or web address] Work Phone: Start: 07-04-2024 End: 07-04-2024 ambulatory Barbara Castro VANSTONE MACHINE OPERATOR Facility:[facility] Start: 07-04-2024 End: 07-04-2024 Patient encounter procedure Barbara Castro VANSTONE MACHINE OPERATOR-C -[email or web address] Work Phone: Start: 06-30-2024 ambulatory [facility] Facility:[facility] Start: 06-30-2024 Registered Referred Genevieve Wu MD -[facility] Start: 06-27-2024 End: 06-27-2024 ambulatory Barbara Whiteyuri VANSTONE MACHINE OPERATOR Facility:[facility] Start: 06-23-2024 ambulatory [facility] Facility:[facility] Start: 06-21-2024 End: 06-21-2024 ambulatory Gerardoswan riversharon Wu [facility] Start: 06-20-2024 End: 06-20-2024 ambulatory Barbara Castro VANSTONE MACHINE OPERATOR Facility:[facility] Start: 06-17-2024 ambulatory [facility] Facility:[facility] Start: 06-16-2024 End: 06-16-2024 ambulatory Barbara Castro VANSTONE MACHINE OPERATOR [facility] Start: 06-11-2024 End: 06-11-2024 [facility] Start: 06-07-2024 End: 06-14-2024 ambulatory [facility] Start: 05-30-2024 End: 05-30-2024 Emergency department patient visit [facility] Start: 02-23-2024 End: 02-23-2024 Historical Summary DUNCAN PERES-Sanjana Work Phone: [facility] Start: 02-05-2024 End: 02-05-2024 ambulatory MARCOS Sald[facility] Start: 08-17-2023 End: 08-17-[address] Nicholas Cohen Work Phone: [facility] Work Phone: Start: 08-17-2023 End: 08-17-[address] Nicholas Cohen Work Phone: [facility] Work Phone: Start: 08-14-2023 End: 08-14-[address] Nicholas Cohen Work Phone: [facility] Work Phone: Start: 08-14-2023 End: 08-14-[address] Nicholas Cohen Work Phone: [facility] Work Phone: Start: 08-10-2023 End: 08-10-[address] [facility] Cohen [facility]: Start: 07-21-2023 End: 07-21-[address] Nicholas Cohen Work Phone: [facility] Work Phone: Start: 05-25-2023 End: 05-25-[address] Lalo Palm Work Phone: [facility] Work Phone: Start: 05-25-2023 End: 05-25-[address] Lalo Palm Work Phone: [facility] Work Phone: Start: 05-25-[address] Kamari Palm [facility]: Start: 05-14-2023 End: 05-14-2023 Office outpatient visit 15 minutes DUNCAN PERES-Sanjana Work Phone: [facility]. Start: 04-23-2023 Non-patient / Non-visit Dr. Lalo Palm Work Phone: [facility] Work Phone: Start: 04-22-2023 Non-patient / Non-visit Dr. Lalo Palm Work Phone: [facility] Work Phone: Start: 04-21-2023 Non-patient / Non-visit Dr. Lalo Palm Work Phone: [facility] Work Phone: Start: 04-20-2023 Non-patient / Non-visit Dr. Lalo Palm Work Phone: [facility] Work Phone: Start: 04-19-2023 Non-patient / Non-visit Dr. Lalo Palm Work Phone: [facility] Work Phone: Start: 04-18-2023 Non-patient / Non-visit Dr. Lalo Palm Work Phone: [facility] Work Phone: Start: 04-17-2023 Non-patient / Non-visit Dr. Lalo Palm Work Phone: [facility] Work Phone: Start: 04-16-2023 End: 04-23-2023 Evaluation and management of inpatient Dr. Lalo Palm Work Phone: [facility] 3 Work Phone: Start: 04-05-2023 End: 04-05-[address] Lalo Palm Work Phone: [facility]Laboratory, Specimen Work Phone: Start: 04-05-2023 End: 04-05-[address] Lalo Palm Work Phone: [facility] Work Phone: Start: 03-17-2023 End: 03-17-[address] Lalo Palm Work Phone: [facility] Neurology Work Phone: Start: 11-17-2022 End: 11-17-2022 Results Review DUNCAN ZAVALA MANAGER ASSET-C Work Phone: [facility] Start: 11-13-2022 End: 11-18-[address] NICCI LEMUS MD Facility:A Start: 11-13-2022 End: 11-13-2022 Patient encounter procedure DUNCAN CARMENYENIFERER MANAGER ASSET-C Work Phone: [facility] Start: 11-13-2022 End: 11-13-2022 Office outpatient visit 15 minutes DUNCAN SAUERAXELIKEYENIFERER MANAGER ASSET-C Work Phone: [employer] Start: 08-04-2022 End: 08-04-2022 Historical Summary DUNCAN CARMENYENIFERER MANAGER ASSET-C Work Phone: [facility] Start: 07-04-2022 End: 07-04-2022 Patient encounter procedure DUNCAN CARMENDEIRDRE MANAGER ASSET-C Work Phone: [facility] Start: 07-01-2022 End: 07-01-2022 Results Review DUNCAN NELLAYENIFERER MANAGER ASSET-C Work Phone: [facility] Start: 06-30-2022 End: 06-30-2022 Lab Only DUNCAN NELLAYENIFERER MANAGER ASSET-C Work Phone: [facility] [employer] Start: 06-30-2022 End: 01-16-2023 Office outpatient visit 25 minutes DUNCAN CARMENTTER MANAGER ASSET-C [facility] Start: 04-24-2022 End: 04-24-2022 Phone Encounter DUNCAN ZAVALA MANAGER ASSET-C [facility] Start: 04-23-2022 End: 04-23-2022 Medication Refill/Order DUNCAN CARMENDEIRDRE MANAGER ASSET-C [facility] Start: 04-07-2022 End: 04-07-2022 Office outpatient new 60 minutes DUNCAN CARMENDEIRDRE MANAGER ASSET-C [facility] Start: 02-15-2022 End: 02-15-2022 Emergency department patient visit Dr. Lalo Palm Work Phone: [facility] Start: 02-11-2022 End: 02-11-[address] Lalo Palm Work Phone: [facility] Work Phone: Start: 02-11-2022 End: 02-11-[address] Lalo Palm Work Phone: [facility] Start: 02-11-2022 End: 02-11-[address] Lalo Palm Work Phone: [facility] Neurology Start: 12-24-2021 End: 12-24-[address] Lalo Palm Work Phone: [facility] Start: 12-13-2021 End: 12-28-2021 Evaluation and management of inpatient Dr. Lalo Palm Work Phone: [facility] Start: 12-13-2021 Non-patient / Non-visit Dr. Lalo Palm Work Phone: [facility] Start: 12-12-2021 Non-patient / Non-visit Dr. Lalo Palm Work Phone: [facility] Start: 12-11-2021 End: 12-13-2021 Evaluation and management of inpatient Dr. Lalo Palm Work Phone: [facility] 3 Start: 10-29-2021 Non-patient / Non-visit Dr. Lalo Palm Work Phone: [facility] Start: 09-26-2021 End: 09-26-[address] Lalo Palm Work Phone: [facility] Internal Medicine Start: 07-03-2020 End: 07-03-2020 Subsequent hospital visit by physician Gerson Adamson Work Phone: [facility] Comment on above: Other closed displac [...] Start: 02-14-2025 Urine microscopy: red cells Dr. Genevivee Wu MD Work Phone: Start: 02-14-2025 Urnls [...] Activity Detail Author Start: 02-19-2025 Patient discharge [facility] Start: 02-14-2025 Following clinical pathway protocol [facility] Start: 02-14-2025 Assessment of risk o f venous thromboembolism [facility] Start: 02-14-2025 Elevation of head of bed [facility] Start: 02-14-2025 Inhalation therapy procedure [facility] Start: 02-14-2025 Insertion of cathete r into peripheral vein [facility] Start: 02-14-2025 Patient education [facility] Start: 02-14-2025 Providing care accor ding to standard [facility] Start: 02-14-2025 Provision of activit y privileges [facility] Start: 02-14-2025 Referral for physica l therapy [facility] Start: 02-14-2025 Referral to occupati onal therapist [facility] Start: 02-14-2025 Referral to service [facility] Start: 02-14-2025 [facility] Start: 02-14-2025 Bacteria identified in Sputum by Culture [facility] Start: 02-14-2025 Legionella pneumophi la Ag [Presence] in Urine [facility] Start: 02-14-2025 Streptococcus pneumo niae antigen assay [facility] Start: 02-14-2025 Verification routine [facility] Start: 02-14-2025 Admission procedure [facility] Start: 02-14-2025 Hospital admission, emergency, from emergency room, medical nature [facility] Start: 02-14-2025 [facility] Start: 02-14-2025 Consultation [facility] Start: 02-14-2025 Patient referral to dietitian [facility] Start: 04-23-2023 Patient discharge [facility] Start: 04-18-2023 [facility] Start: 04-16-2023 Application of intermittent pneumatic compression device [facility] Start: 04-16-2023 Aspiration precautions [facility] Start: 04-16-2023 Assessment of risk o f venous thromboembolism [facility] Start: 04-16-2023 Fall prevention [facility] Start: 04-16-2023 Inhalation therapy procedure [facility] Start: 04-16-2023 Insertion of cathete r into peripheral vein [facility] Start: 04-16-2023 Introduction of urin inga catheter [facility] Start: 04-16-2023 Measuring intake and output [facility] Start: 04-16-2023 Providing care accor ding to standard [facility] Start: 04-16-2023 Provision of activit y privileges [facility] Start: 04-16-2023 Referral to occupati onal therapist [facility] Start: 04-16-2023 Referral to service [facility] Start: 04-16-2023 [facility] Start: 04-16-2023 Following clinical pathway protocol [facility] Start: 04-16-2023 Admission procedure [facility] Start: 04-16-2023 Patient referral to dietitian [facility] Start: 11-13-2022 Blood occult peroxid ase actv qual feces 1 deter [facility] Start: 11-13-2022 Blood count complete auto&auto difrntl wbc [facility]; [facility] Start: 06-30-2022 Cv strs tst xers&/or rx cont ecg w/si&r CARDIOVASCULAR STRESS [id number] ISCAN- WITH IMAGING - ([id number]) ([id number]) Start: 30-Jun-2022 [facility] Start: 06-30-2022 Ecg routine ecg w/le ast 12 lds w/i&r ELECTROCARDIOGRAM, COMPLETE ([id number]) Start: 30-Jun-2022 Intent [facility]; [facility]. Start: 04-28-2022 Assay of iron [facility]. Start: 04-28-2022 Blood count complete auto&auto difrntl wbc [facility]; [facility]. Start: 04-28-2022 Comprehensive metabo lic panel [facility]; [facility] Start: 04-07-2022 Adv care pln tlkd & alt dcsn maker docd ADV CARE PLAN DISCUSSED & DOCUMENTED, SURROGATE OR PLAN IN PLACE ([id number]) Start: 07-Apr-2022 Intent [facility]; [facility]. Start: 02-11-2022 Thiamine measurement [facility] Work Phone: Start: 02-01-2022 Blood chemistry [facility] Work Phone: Start: 01-25-2022 Blood chemistry [facility] Work Phone: Start: 01-18-2022 Blood chemistry [facility] Work Phone: Start: 01-11-2022 Blood chemistry [facility] Work Phone: Start: 01-04-2022 Blood chemistry [facility] Work Phone: Start: 12-29-2021 Development of care plan [facility] Work Phone: Start: 12-28-2021 Blood chemistry [facility] Work Phone: Start: 12-28-2021 Patient discharge [facility] Work Phone: Start: 12-27-2021 Referral to service [facility] Work Phone: Start: 12-24-2021 [facility] Work Phone: Start: 12-23-2021 End: 12-24-2021 [facility] Work Phone: Start: 12-21-2021 Development of care plan [facility] Work Phone: Start: 12-20-2021 End: 12-20-2021 [facility] Work Phone: Start: 12-19-2021 [facility] Work Phone: Start: 12-18-2021 Blood chemistry [facility] Work Phone: Start: 12-17-2021 Speech therapy management [facility] Work Phone: Start: 12-17-2021 Blood chemistry [facility] Work Phone: Start: 12-17-2021 [facility] Work Phone: Start: 12-16-2021 Speech therapy assessment [facility] Work Phone: Start: 12-16-2021 Blood chemistry [facility] Work Phone: Start: 12-16-2021 [facility] Work Phone: Start: 12-15-2021 Blood chemistry [facility] Work Phone: Start: 12-14-2021 Development of care plan [facility] Work Phone: Start: 12-14-2021 Patient referral to dietitian [facility] Work Phone: Start: 12-14-2021 Developing a treatme nt plan [facility] Work Phone: Start: 12-14-2021 Blood chemistry [facility] Work Phone: Start: 12-13-2021 Verification routine [facility] Work Phone: Start: 12-13-2021 Following clinical pathway protocol [facility] Work Phone: Start: 12-13-2021 Admission procedure [facility] Work Phone: Start: 12-13-2021 Measuring intake and output [facility] Work Phone: Start: 12-13-2021 Patient referral to dietitian [facility] Work Phone: Start: 12-13-2021 Referral to occupati onal therapist [facility] Work Phone: Start: 12-13-2021 Referral to service [facility] Work Phone: Start: 12-13-2021 Vital signs measurements [facility] Work Phone: Start: 12-13-2021 End: 12-14-2021 [facility] Work Phone: Start: 12-13-2021 Patient discharge [facility] Work Phone: Start: 12-11-2021 End: 12-12-2021 [facility] Work Phone: Start: 12-11-2021 End: 12-11-2021 Blood culture [facility] Work Phone: Start: 12-11-2021 Application of intermittent pneumatic compression device [facility] Work Phone: Start: 12-11-2021 Following clinical pathway protocol [facility] Work Phone: Start: 12-11-2021 Aspiration precautions [facility] Work Phone: Start: 12-11-2021 Assessment of risk o f venous thromboembolism [facility] Work Phone: Start: 12-11-2021 Fall prevention [facility] Work Phone: Start: 12-11-2021 Incentive spirometry [facility] Work Phone: Start: 12-11-2021 Inhalation therapy procedure [facility] Work Phone: Start: 12-11-2021 Insertion of cathete r into peripheral vein [facility] Work Phone: Start: 12-11-2021 Introduction of urin inga catheter [facility] Work Phone: Start: 12-11-2021 Measuring intake and output [facility] Work Phone: Start: 12-11-2021 Oxygen therapy [facility] Work Phone: Start: 12-11-2021 Providing care accor ding to standard [facility] Work Phone: Start: 12-11-2021 Provision of activit y privileges [facility] Work Phone: Start: 12-11-2021 Referral to occupati onal therapist [facility] Work Phone: Start: 12-11-2021 Referral to service [facility] Work Phone: Start: 12-11-2021 End: 12-11-2021 [facility] Work Phone: Start: 12-11-2021 Verification routine [facility] Work Phone: Start: 12-11-2021 Admission procedure [facility] Work Phone: Start: 12-11-2021 Patient referral to dietitian [facility] Work Phone: Start: 12-10-2021 [facility] Work Phone: Start: 10-29-2021 Patient referral [facility] Work Phone: Start: 06-27-2020 Annual Wellness Visi t (AWV) Annual Wellness Visit (AWV) [place], [place] Start: 02-14-2020 Influenza vaccination Flu vaccine (# 1) [place], [place] Start: 01-18-1996 Screening for osteoporosis DEXA (modify frequency per FRAX score) [place], [place] Start: 1991 Shingles Vaccine (1 of 2) Buitrago gles Vaccine (1 of 2) [place] Start: 01-18-1960 DTaP/Tdap/Td vaccine (1 - Tdap) DTaP/Tdap/Td vaccine (1 - Tdap) [place], [place] Start: 1941 Hepatitis C screening Hepatitis C sc reen [place], [place] Bacteria identified in Blood by Culture Blood Culture [facility] Work Phone: Blood culture [facility] Work Phone: CT Chest WO contrast [facility] End: 07-03-2020 CT ELBOW LEFT WO CONTRAST [place], [place] Comment on above: 1 Occurrences starti ng 07/03/2020 until 07/03/2020 End: 07-03-2020 CT UPPER EXTREMITY LEFT WO CONTRAST CT UPPER EXTREMITY LEFT WO CONTRAST Imaging Routine Once for 1 Occurrences starting 07/03/2020 until 07/03/2020 [place] Comment on above: Once for 1 Occurrenc es starting 07/03/2020 until 07/03/2020 CT UPPER EXTREMITY L EFT WO CONTRAST CT UPPER EXTREMITY LEFT WO CONTRAST Imaging Routine 07/03/2020 12:46 PM EST [place], [place] MR Brain WO contrast [facility] Work Phone: Patient Education [facility] Work Phone: Patient referral [facility] Work Phone: Thiamine measurement [facility] Work Phone: [facility] Immunizations Immunization Date Immunization Notes Care Provider Fa charanjit 05-14-2023 influenza, injectabl e, quadrivalent, preservative free DUNCAN PLATTTETTER MANAGER ASSET-C Work Phone: [facility] Comment on above: Site: Right ArmVIS Ying boyeren: * Influenza (Flu) Vaccine (Inactivated or Recombinant) (01/18/21) 05-14-2023 influenza virus vacc ine, unspecified formulation DUNCAN PLATTTETTER MANAGER ASSET-C Work Phone: [facility] [employer] [facility]. Comment on above: Had immunization. 01-02-2021 Covid (Pfizer) Dr. Lalo marquis Work Phone: [facility] 12-12-2020 Covid (Pfizer) Dr. Lalo marquis Work Phone: [facility] 06-18-[address] Lalo Palm Work Phone: [facility] 06-18-2018 Dr. Genevieve Wu MD Work Phone: [facility] 01-07-2018 pneumococcal polysaccharide vaccine, [address] Lalo Palm Work Phone: [facility] 01-07-[address] Bhavin Palm Work Phone: [facility] Work Phone: 01-07-2018 pneumococcal vaccine , unspecified formulation Dr. Lalo Palm Work Phone: [facility] 06-04-2001 TD(adult) unspecifie d formulation Dr. Lalo Palm Work Phone: [facility] Payers Date Payer Category Payer Self-pay [id number] 2020 Medicare AETNA MEDICARE A ETNA MEDICARE-ADVANTAGE PPO [id number] 2020-Present [address] [place] [address] Medicare [id number] 2006 Private Health Insurance 101 [id number] 1941 Unknown [id number] 2.0.1.783829.3.579.2.6 27 1941 Unknown [id number] 2.0.1.427101.3.579.2.6 51 1941 Unknown [id number] 2.16.840.1.916326.3.579.2.6 51 1941 Unknown [id number] 2.16.840.1.399947.3.579.2.6 51 1941 Unknown [id number] 2.16.840.1.634333.3.579.2.6 51 Medicare [id number] Unknown [facility] PACKAGE PLAN [id number] Unknown [id number] 2.16.840.1.056321.3.579.2.4 62 Unknown [id number] 2.16.840.1.583693.3.579.2.4 62 Unknown [id number] 2.16.840.1.574054.3.579.2.4 62 Unknown [id number] 2.16.840.1.871793.3.579.2.4 62 Unknown [id number] 2.16.840.1.199630.3.579.2.4 62 Unknown [id number] 2.16.840.1.763794.3.579.2.4 62 Unknown [id number] 2.16.840.1.384707.3.579.2.4 62 Unknown [id number] 2.16.840.1.103948.3.579.2.4 62 Unknown [id number] 2.16.840.1.865399.3.579.2.4 62 Unknown [id number] 2.16.840.1.981769.3.579.2.4 62 Unknown [id number] 2.16.840.1.078987.3.579.2.4 62 Unknown [id number] 2.16.840.1.108404.3.579.2.4 62 Unknown [id number] 2.16.840.1.859189.3.579.2.4 62 Unknown [id number] 2.16.840.1.735942.3.579.2.4 62 Unknown [id number] 2.16.840.1.600861.3.579.2.4 62 Unknown [id number] 2.16.840.1.323196.3.579.2.4 62 Unknown [id number] 2.16.840.1.039381.3.579.2.4 62 Unknown [id number] 2.16.840.1.794120.3.579.2.4 62 Unknown [id number] 2.16.840.1.324048.3.579.2.4 62 Unknown [id number] 2.16.840.1.603429.3.579.2.4 62 Unknown [id number] 2.16.840.1.519360.3.579.2.4 62 Unknown [id number] 2.16.840.1.552406.3.579.2.4 62 Unknown [id number] 2.16.840.1.646088.3.579.2.4 62 Unknown [id number] 2.16.840.1.728880.3.579.2.4 62 Unknown [id number] 2.16.840.1.908769.3.579.2.4 62 Unknown [id number] 2.16.840.1.542882.3.579.2.4 62 Unknown [id number] 2.16.840.1.085755.3.579.2.4 62 Unknown [id number] 2.16.840.1.201883.3.579.2.4 62 Unknown [id number] 2.16.840.1.750905.3.579.2.4 62 Unknown [id number] 2.16.840.1.686740.3.579.2.4 62 Unknown [id number] 2.16.840.1.380945.3.579.2.4 62 Unknown [id number] 2.16.840.1.071887.3.579.2.4 62 Unknown [id number] 2.16.840.1.990648.3.579.2.4 62 Unknown [id number] 2.16.840.1.918867.3.579.2.4 62 Unknown [id number] 2.16.840.1.786280.3.579.2.4 62 Unknown [id number] 2.16.840.1.955057.3.579.2.4 62 Unknown [id number] 2.16.840.1.842075.3.579.2.4 62 Unknown [id number] 2.16.840.1.477837.3.579.2.4 62 Unknown [id number] 2.16.840.1.936339.3.579.2.4 62 Unknown [id number] 2.16.840.1.340705.3.579.2.4 62 Unknown [id number] 2.16.840.1.309973.3.579.2.4 62 Unknown [id number] 2.16.840.1.028536.3.579.2.4 62 Unknown [id number] 2.16.840.1.735996.3.579.2.4 62 Unknown [id number] 2.16.840.1.833845.3.579.2.4 62 Unknown [id number] 2.16.840.1.687444.3.579.2.4 62 Unknown [id number] 2.16.840.1.068001.3.579.2.4 62 Unknown [id number] 2.16.840.1.198735.3.579.2.4 62 Unknown [id number] 2.16.840.1.404295.3.579.2.4 62 Unknown [id number] 2.16.840.1.575008.3.579.2.4 62 Unknown [id number] 2.16.840.1.694393.3.579.2.4 62 Unknown [id number] 2.16.840.1.201542.3.579.2.4 62 Unknown [id number] 2.16.840.1.525674.3.579.2.4 62 Social History Date Type Detail Facility Start: 07-03-2020 End: 04-16-2023 Tobacco smoking status NHIS Unknown if ever smoked [facility] Sex Assigned At Not on file [place] Exposure to SARS-CoV -2 (event) Not sure [place] Start: 1940 Sex Assigned At Female W [facility] Start: 01-04-2018 None [facility] Start: 01-04-2018 Alone [facility] Start: 01-15-2018 Non-smoker [facility] Alcohol Use: Alcohol Use: ; N o Alcohol Use. [facility] Marital status: Marital status: ; . [facility] Tobacco use: Tobacco use: ; F ormer smoker. [facility]; [facility] Work Phone: Occasional alcohol use [facility]; [facility] Work Phone: Never smoked tobacco [facility]; [facility] Work Phone: Start: 06-07-2024 End: 03-14-2025 Ex-smoker [facility] Sex [facility] Medical Equipment Procedure Code Equipment Code [...] CANNULA JOSE MAIRA NAIL FDA Start: 12-30-2017 11MM TFN CANNULA [...] Assessment Result Facility 02-19-2025 Functional status Chair [facility] Work Phone: 04-23-2023 Functional status Bathroom Privilege [facility] Work Phone: 12-28-2021 Functional status Ambulates;Up ad gary [facility] Work Phone: 12-26-2021 Functional status Ambulates [facility] Work Phone: 12-13-2021 Functional status Patient Activity Chair [facility] Work Phone: 12-13-2021 Functional status With Assist of 1 [facility] Work Phone: Mental Status Date Assessment Result Facility 02-19-2025 Cognitive function Touch/Shaking [facility] Work Phone: 02-14-2025 Cognitive function Drowsy;Disori ented;Responds to vocal stimuli [facility] Work Phone: 04-23-2023 Cognitive function Appropriate;Cooperativ e [facility] Work Phone: 04-22-2023 Cognitive function Arousable To Voice/Nam e [facility] Work Phone: 02-15-2022 Cognitive function Level Of Cons ciousness Awake;Alert;Appropriate;Follow s Commands [facility] Work Phone: 12-28-2021 Cognitive function Voice/Name [facility] Work Phone: 12-27-2021 Cognitive function Appropriate;C ooperative;Restle ss;Guarded [facility] Work Phone: 12-26-2021 Cognitive function Voice/Name [facility] Work Phone: 12-24-2021 Cognitive function Calm;Relaxed [facility] Work Phone: 12-13-2021 Cognitive function Patient Orientation Pe [facility] Work Phone: 12-13-2021 Cognitive function Voice/Name [facility] Work Phone: 12-12-2021 Cognitive function Fatigued [facility] Work Phone: Clinical Notes 02-15-2022 to 02-19-2025 Note Date & Type Note Facility 02-19-2025 Note [facility] 02-18-2025 Progress note Note Date/Time February 18, 2025 3:08pm [facility] Medical Records Department [address] [place] [address] Progress Note 02/18/25 1500 MR#: [id number] Acct: [id number] Name: SAPNA BULLARD Rep #:[id number] : 1940 85 From: Felicia Paniagua MD PCP: Dr. Genevieve Wu MD Status:A DM IN Location: MS3 FU956-3 Subjective Subjective Patient seen and examined with [...] % (Auto) 61.7, Lymph % (Auto) 21.0, [place] % (Auto) 13.3 H, Eos % (Auto) [...] (Auto) 71.4 H, Lymph % (Auto) 14.7L, [place] % (Auto) 10.8 H, Eos % (Auto) [...] sitter again. Charges/Coding Visit Charges Inpatient E&M: 63566 Subs Hosp L2 02/18/25 1508 <Electronically signed by Felicia Paniagua MD> Felicia Paniagua MD Cosigner Signature (if applicable): CC: ~ Signed [facility] Work Phone: 1(271) 640-268009-05-2025 Progress note Author [facility] Note Date/Time February 17, 2025 4:00pm [facility] Medical Records Department [address] [place] [address] Progress Note 02/17/25 1048 MR#: [id number] Acct: [id number] Name: SAPNA BULLARD Rep #:[id number] : 1940 85 From: Felicia Paniagua MD PCP: Dr. Genevieve Wu MD Status:A DM IN Location: MD3 [id number] Subjective Subjective Patient seen and examined with [...] facilitate this. Charges/Coding Visit Charges Inpatient E&M: 05727 Subs Hosp L2 02/17/25 1600 <Electronically signed by Felicia Paniagua MD> Felicia Paniagua MD Cosigner Signature (if applicable): CC: ~ Signed [facility] Work Phone: 1([phone]) 392-362409-05-2025 Progress note Author [facility] Note Date/Time February 17, 2025 6:39am [facility] Medical Records Department [address] [place] [address] Progress Note - Hospitalist 02/17/25 0303 MR#: [id number] Acct: [id number] Name: SAPNA BULLARD Rep #:[id number] : 1940 85 From: Karon Nunes MD PCP: Dr. Genevieve Wu MD Status:A DM IN Location: [place] [address] Hospitalist Note Patient with notable agitation, aggressive behavior, will trial IM haldol x 1. 02/17/25 0304 <Electronically signed by Karon Nunes MD> Cosigner Signature (if applicable): CC: ~ Signed ADDENDUM by Dr. Karon Nunes MD on 02/17/25 at 0639 Addendum Will increase patient risperidone. 02/17/25 0639<Electronically signed by Karon Nunes MD> Cosigner Signature (if applicable): cc: ~* Signed [facility] Work Phone: 1(107) 540-280109-04-2025 Progress note Author [facility] Note Date/Time February 16, 2025 5:29pm [facility] Medical Records Department [address] [place] [address] Progress Note 02/16/25 1324 MR#: [id number] Acct: [id number] Name: SAPNA BULLARD Rep #:[id number] : 1940 85 From: Felicia Paniagua MD PCP: Dr. Genevieve Wu MD Status:A DM IN Location: MS3 YA793-3 Subjective Subjective Patient seen and examined with [...] (Auto) 67.8, Lymph % (Auto) 14.9 L, [place] % (Auto) 14.1 H, Eos % (Auto) [...] DC tomorrow Charges/Coding Visit Charges Inpatient E&M: 48298 Subs Hosp L2 02/16/25 1729 <Electronically signed by Felicia Paniagua MD> Felicia Paniagua MD Cosigner Signature (if applicable): CC: ~ Signed [facility] Work Phone: 1(454) 743-162009-03-2025 Progress note Author Felicia Paniagua [facility] Note Date/Time February 15, 2025 6:32pm [facility] Medical Records Department [address] [place] [address] Progress Note 02/15/25 1730 MR#: [id number] Acct: [id number] Name: SAPNA BULLARD Rep #:[id number] : 1940 85 From: Felicia Paniagua MD PCP: Dr. Genevieve Wu MD Status:A DM IN Location: MS3 JT900-8 Subjective Subjective Patient seen and examined. She was lethargic and not really answering questions. Unable to do review of the systems. I saw her with her nurse by [facility]. Review of symptoms otherwise negative. She [...] (Auto) 63.9, Lymph % (Auto) 16.8 L, [place] % (Auto) 16.6 H, Eos % (Auto) [...] prophylaxis: SCDs Charges/Coding Visit Charges Inpatient E&M: 72294 Subs Hosp L2 02/15/25 1832 <Electronically signed by Felicia Paniagua MD> Felicia Paniagua MD Cosigner Signature (if applicable): CC: ~ Signed [facility] Work Phone: 1(703) 509-153409-03-2025 Progress note Author Farrah Leone [facility] Note Date/Time February 14, 2025 10:08pm [facility] Medical Records Department [address] [facility] [place] [address] Progress Note 02/14/252200 MR#: [id number] Acct: [id number] Name: SANPA BULLARD Rep #:[id number] : 1940 85 From: Farrah Haas PCP: Dr. Genevieve Wu MD Status:A DM IN Location: MD3 BW602-6 Progress Note Notified by nursing that pt [...] Cosigner Signature (if applicable): CC: ~ Signed [facility] Work Phone: 1(120) 680-240109-02-2025 History and physical note Author Liudmila Morin [facility] Note Date/Time February 14, 2025 7:35pm [facility] Medical Records Department [address] [facility] [place] [address] H&P Exam - Hospitalist 02/14/25 1511 MR#: [id number] Acct: [id number] Name: SAPNA BULLARD Rep #:[id number] : 1940 85 From: Liudmila Morin MD PCP: Dr. Genevieve Wu MD Status:A DM IN Location: MD3 JR881-9 HPI - General General Date of Admission: 02/14/25 Date of Service: 02/14/25 Chief Complaint: Altered mental status, weakness HPI Narrative SAPNA BULLARD, is a 85-year-old female history of GERD, dementia, essential tremor,restless leg syndrome who presented to [facility] ED 02/14/2025 from [facility] for confusion, weakness, stool and urinary incontinence. [...] up. Unable to obtain any further history [facility] Medical History (Updated 02/14/25 @ 15:21 by [...] Unknown History gram-2.25 kcal/mL oral liquid (Boost [facility]) propranolol 20 mg tablet 20 mg [...] details: PT frequency: 1-2 times per week herrera/religious: Religion seatbelt use: always ROS ROS Narrative [...] (Auto) 74.1 H, Lymph % (Auto)11.8 L, [place] % (Auto) 12.2 H, Eos % (Auto) [...] Clarity Clear, Urine pH 6.0, Ur Specific [place] 1.015, Urine Protein Negative, Urine Glucose (UA) [...] 2. Suggestion of COPD. Reading Location: [facility] Assessment & Plan Assessment/Plan (1) Community [...] Morin MD Charges/Coding Visit Charges Inpatient E&M: 69266 Init Hosp L2 02/14/25 1522 <Electronically signed [...] MD; Dr. Liudmila Morin MD ~* Signed [facility] Work Phone: 1(954) 546-664309-02-2025 Discharge summary Author Arya Gannon [facility] Note Date/Time February 14, 2025 5:46pm [facility] Medical Records Department [address] [place] [address] Emergency Department Summary 02/14/25 MR#: [id number] Acct: [id number] Name: SAPNA BULLARD Rep #:[id number] : 1940 85 From: Arya de guzman DO PCP: Dr. Genevieve Wu MD Status:A DM IN Location: MS3 OW782-7 HPI History of Present Illness Chief Complaint: Weakness Narrative Narrative: Chief complaint and HPI: 85-year-old female with past medical history of dementia, GERD, HTN, essential tremor presents from [facility] for evaluation of confusion, weakness, stool and [...] Alert, grossly intact, sensation intact Psych: Cooperative [facility] Medical History Neuropathy Left bundle branch block [...] details: PT frequency: 1-2 times per week herrera/religious: Religion seatbelt use: always EXAM Physical Exam [...] dementia, GERD, HTN, essential tremor presents from [facility] for evaluation of confusion, weakness, stool and [...] 74.1 H Lymph % (Auto) 11.8 L [place] % (Auto) 12.2 H Eos % (Auto) [...] Clarity Clear Urine pH 6.0 Ur Specific [place]bridge 1.015 Urine Protein Negative Urine Glucose (UA) [...] (Auto) Neut % (Auto) Lymph % (Auto) [place] % (Auto) Eos % (Auto) Baso % [...] Color Urine Clarity Urine pH Ur Specific [place] Urine Protein Urine Glucose (UA) Urine Ketones Urine Occult Blood Urine Nitrite Urine Bilirubin Urine Urobilinogen Ur Leukocyte Esterase Urine RBC Urine WBC Ur Squamous Epith Cells Urine Bacteria Urine Mucus Radiography Diagnostic Testing: Clinical Impression(s) from Imaging Studies Chest X-Ray 02/14/25 11:40 IMPRESSION: 1. Lingular atelectasis or pneumonia. 2. Suggestion of COPD. Reading Location: [facility] Discharge Plan Disposition Disposition: Acute Care Hospital [facility] Discharge Date/Time: 02/14/25 15:50 What to do if you have Problems For any increased pain, shortness of breath, bleeding, nausea or vomiting, chestpain, or any unexpected problems, contact your Primary Care Provider. Call [facility] ([phone]) or report to the closest Emergency Room. Call 911 if necessary. 02/14/25 4854 <Electronically signed by Arya Gannon DO> Cosigner Signature (if applicable): CC: Dr. Genevieve Wu MD ~ Signed [facility] Work Phone: 1(698) 124-899309-02-2025 Radiology Diagnostic study [facility]06-17-2025 Evaluation note* Diagnosis Onset Date Resolution Status Admit Date Dementia chronic November 29 10:05am Essential tremor chronic November 10:05am Restless leg syndrome chronic Madhu 2024 10:05am Vitamin D deficiency resolved November 29, 20[address] chronic December 072024 9:10am Community acquired pneumonia acute February 14, 2025 3:11pm [facility] Work Phone: 1(497) 722-186906-17-2025 Evaluation note* Diagnosis Onset Date Resolution Status Admit Date Dementia chronic November 29 10:05am Essential tremor chronic November 10:05am Restless leg syndrome chronic Nov 10:05am Vitamin D deficiency resolved November 29, 2024 10:05am Abnormal chest CT chronic December 072024 9:10am Community acquired pneumonia inactiv e February 14, 2025 3:11pm [facility] Work Phone: 1([phone]) 539-555306-17-2025 Radiology Diagnostic study note [facility] Imaging Services [address] [place] [address] [id number] Chest without Contrast MR#: [id number] Acct: [id number] Name: SAPNA BULLARD Rep #: [id number] : 1940 F 84 From: Thaddeus Chaparro MD PCP: Dr. Genevieve Wu MD Status: R EG CLI Study:Chest without Contrast Date of Exam: 11/28/24 Exam# [id number] Ordering Dr: Valdez DO PROCEDURE: CHEST WITHOUT [...] 4. Other findings as noted. Reading Location: [id number] CC: Dr. Willian Palm DO; Dr. 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: Signed [facility] Work Phone: 1([phone]) 259-599904-23-2025 Evaluation note* Diagnosis Onset Date Resolution Status [...] Abnormal chest CT chronic December 072024 9:10am [facility] Work Phone: 1(759) 324-897303-27-2025 Evaluation note* Diagnosis Onset Date Resolution Status Admit Date Abnormal chest CT chronic August 142024 11:20am Left bundle branch block acute October 05, 2024 9:00am Abnormal chest CT chronic September 142024 9:00am Dementia chronic October 05 9:00am Hyperlipemia chronic October 05, 2024 9:00am [facility] Work Phone: 1([phone]) 917-187103-27-2025 Evaluation note* Diagnosis Onset Date Resolution Status [...] D deficiency resolved November 29, 2024 10:05am [facility] Work Phone: 1(367) 155-907603-27-2025 Evaluation note* Diagnosis Onset Date Resolution Status [...] Abnormal chest CT chronic December 072024 9:10am [facility] Work Phone: 1([phone]) [phone] Evaluation note* Diagnosis Onset Date Resolution Status [...] 9:00am Hyperlipemia chronic October 05, 2024 9:00am [facility] Work Phone: 1(728) 586-213912-31-2024 [facility]11-08-2023 Progress note Author John Johnston [facility] April 22, 2023 4:40pm Note Date/Time April 22, 2023 4 :41pm [facility] Medical Records Department [address] [place] [address] Progress Note - Hospitalist 04/22/23 1637 MR#: [id number] Acct: [id number] Name: SAPNA BULLARD Rep #:[id number] : 1940 83 From: John Johnston DO PCP: Dr. Nicci Lemus MD Status:ADM I N [facility] Reason for Visit Reason for Visit: Diagnoses [...] high-protein 4 times a day with med Ravel Law, she willcontinue on an appetite stimulant #7 chronic dementia-type unknown, probable Alzheimer's dementia-complicates care, medical course, recovery, and prognosis Total clinical time spent by myself addressing patient's medical issues, reviewing all of her data, and collaborating with patient's care team: 35 minutes Charges/Coding Visit Charges Inpatient E&M: 31793 Subs Hosp L2 04/22/23 1640 <Electronically signed by John Johnston DO> Cosigner Signature (if applicable): CC: ~ Signed [facility] Work Phone: 1([phone]) 941-959511-07-2023 Progress note Author John Johnston [facility] April 21, 2023 5:05pm Note Date/Time April 21, 2023 4 :52pm [facility] Medical Records Department [address] [place] [address] Progress Note - Hospitalist 04/21/23 1649 MR#: [id number] Acct: [id number] Name: SAPNA BULLARD Rep #:[id number] : 1940 83 From: John Johnston DO PCP: Dr. Nicci Lemus MD Status:ADM I N Location: [place] [address] Reason for Visit Reason for Visit: Diagnoses [...] offered, patient will need placement in a custodial facility for short-term rehab services #3 acute cystitis-again patient will be transition to Keflex starting tomorrow #4 acute debility secondary to multiple medical problems including dementia, pneumonia, and cystitis-PT and OT are seeing patient, she will need short-term placement in a custodial facility #5 essential tremor-patient is on propranolol [...] 35 minutes Charges/Coding Visit Charges Inpatient E&M: 34479 Subs Hosp L2 04/21/23 1705 <Electronically signed by John Johnston DO> Cosigner Signature (if applicable): CC: ~ Signed [facility] Work Phone: 1(715) 462-400011-06-2023 Progress note Author [facility] April 20, 2023 7:08pm Note Date/Time April 20, 2023 7 :08pm [facility] Medical Records Department [address] [place] [address] Progress Note - Hospitalist 04/20/23 1854 MR#: [id number] Acct: [id number] Name: SAPNA BULLARD Rep #:[id number] : 1940 83 From: John Johnston DO PCP: Dr. Nicci Lemus MD Status:ADM I N Location: [place] [address] Reason for Visit Reason for Visit: Diagnoses [...] (Auto) 65.0, Lymph % (Auto) 17.3 L, [place] % (Auto) 16.0 H, Eos % (Auto) [...] offered, patient will need placement in a custodial facility for short-term rehab services #3 acute cystitis-again patient will be transition to Keflex starting tomorrow #4 acute debility secondary to multiple medical problems including dementia, pneumonia, and cystitis-PT and OT are seeing patient, she will need short-term placement in a custodial facility #5 essential tremor-patient is on propranolol Total clinical time spent by myself addressing patient's medical issues, reviewing all of her data, and collaborating with patient's care team: 35 minutes Charges/Coding Visit Charges Inpatient E&M: 81297 Subs Hosp L2 04/20/231907 <Electronically signed by John Johnston DO> Cosigner Signature (if applicable): CC: ~ Signed [facility] Work Phone: 1(397) 181-647011-05-2023 Progress note Author Pravin Cruz [facility] April 19, 2023 8:59am Note Date/Time April 19, 2023 8 :59am [facility] Medical Records Department [address] [place] [address] Progress Note - Hospitalist 04/19/23 0857 MR#: [id number] Acct: [id number] Name: SAPNA BULLARD Rep #:[id number] : 1940 83 From: Pravin ty MD PCP: Dr. Nicci Lemus MD Status:ADM I N Location: [place] [address]-1 Subjective Subjective No issues overnight, she is [...] Freq: Status: Active Protocol: Document 04/17/23 11:22 [facility] (Rec: 04/17/23 11:22 SLA Desktop) Nutrition Malnutrition [...] 04/18: Urine culture Bartholomew reported. E. coli 30856?03114 E. coli, ramno sensitivity sensitivity available. Continue IV ceftriaxone. #3. [...] DVT: Lovenox Charges/Coding Visit Charges Inpatient E&M: 35021 Subs Hosp L2 04/19/23 0859 <Electronically signed by Pravin Cruz MD> Cosigner Signature (if applicable): CC: ~ Signed [facility] Work Phone: [phone]) 637-324611-04-2023 Progress note Author Darinel Carlos [facility] April 18, 2023 2:11pm Note Date/Time April 18, 2023 1 0:00am [facility] Medical Records Department [address] [place] [address] Progress Note - Hospitalist 04/18/23 0959 MR#: [id number] Acct: [id number] Name: SAPNA BULLARD Rep #:[id number] : 1940 83 From: Darinel Morocho PCP: Dr. Nicci Lemus MD Status:ADM I N Location: [place] [address] Reason for Visit Reason for Visit: Diagnoses [...] and Output for Last 24 Hours 04/16/23 04/17/2323 23:59 23:59 23:59 Intake Total 1305 / [...] The patient is an 83 y/o F [facility] ED on 04/16/23 with history [...] 04/18: Urine culture Bartholomew reported. E. coli 89558?55417 E. coli, ramon sensitivity sensitivity available. Continue [...] Care Planning Charges/Coding Visit Charges Inpatient E&M: 87507 Subs Hosp L2 04/18/23 1411 <Electronically signed by Darinel Carlos MD> Cosigner Signature (if applicable): CC: ~ Signed [facility] Work Phone: 1(361) 245-611411-03-2023 Progress note Author [place] Terrance [facility] April 17, 2023 3:54pm Note Date/Time April 17, 2023 7 :31am [facility] Medical Records Department [address] [place] [address] Progress Note - Hospitalist 04/17/23 0728 MR#: [id number] Acct: [id number] Name: SAPNA BULLARD Rep #:[id number] : 1940 83 From: Darinel Morocho PCP: Dr. Nicci Lemus MD Status:ADM I N [facility] Reason for Visit Reason for Visit: Diagnoses [...] 80.3 H, Lymph % (Auto) 10.8 L, [place] % (Auto) 8.0, Eos % (Auto) 0.1, [...] Sl. Cloudy, Urine pH 7.0, Ur Specific [place] 1.010, Urine Protein 15 H, Urine Glucose [...] 73.6 H, Lymph % (Auto) 13.6 L, [place] % (Auto) 11.3 H, Eos % (Auto) [...] The patient is an 83 y/o F [facility] ED on 04/16/23 with history [...] () 250 mls @ 15 mls/hr IV .[id number] PRN PRN Reason: Additional IVPB Infusion Sodium Chloride () 250 mls @ 15 mls/hr IV .[id number] PRN PRN Reason: Saline Flush Ceftriaxone Sodium (Rocephin) 1 gm in 50 mls @ 100 mls/hr IV Q24H SAUD Azithromycin 500 mg/ Dextrose 255 mls @ 250 mls/hr IV Q24H SAUD Melatonin (Melatonin 3 Mg Tablet) 3 mg PO QHS PRN PRN PRN Reason: INSOMNIA Memantine (Memantine Hydrochloride 10 Mg Tablet) 10 mg PO BID [facility] Last Admin: 04/17/23 08:31 Dose: 10 mg Mirtazapine (Mirtazapine 15 Mg Tablet) 7.5 mg PO QHS [facility] Last Admin: 04/16/23 22:30 Dose: 7.5 mg Nutritional Formula (Lactose Free) (Ensure Plus High Protein 120 Ml Liquid) 120ml PO 4X/DAY [facility] Last Admin: 04/17/23 13:58 Dose: 120 ml Ondansetron HCl (Ondansetron 4 Mg/2 Ml Vial) 4 mg IV Q8H PRN PRN PRN Reason: NAUSEA/VOMITING Pramipexole Dihydrochloride (Pramipexole Di-Hcl 0.5 Mg Tablet) 0.5 mg PO QHS [facility] Last Admin: 04/16/23 22:31 Dose: 0.5 mg Prochlorperazine Edisylate (Prochlorperazine 10 Mg/2 Ml Vial) 5 mg IV Q4H PRN PRN PRN Reason: Breakthrough nausea/vomiting Propranolol HCl (Propranolol 40 Mg Tablet) 40 mg PO 0600 [facility] Last Admin: 04/17/23 04:09 Dose: Not Given Propranolol HCl (Propranolol 10 Mg Tablet) 20 mg PO 1200,1700 [facility] Last Admin: 04/17/23 12:48 Dose: 20 mg Senna/Docusate Sodium (Senna/Docusate Sodium 1 Tablet) 2 tablet PO BID PRN PRN PRN Reason: Constipation Sodium Chloride (0.9% Saline Lock 10 Ml Syringe) 10 - 40 ml IV UD PRN PRN Reason: SALINE FLUSH Tramadol HCl (Tramadol 50 Mg Tablet) 50 mg PO Q8H PRN PRN PRN Reason: Pain Score 4-10 Charges/Coding Visit Charges Inpatient E&M: 48741 Subs Hosp L2 04/17/23 1714 <Electronically signed by Darinel Carlos MD> Cosigner Signature (if applicable): CC: ~ Signed [facility] Work Phone: 1(630) 194-934711-03-2023 History and physical note Author Karon Nunes [facility] April 16, 2023 10:33pm Note Date/Time April 16, 2023 7 :37pm [facility] Medical Records Department [address] [place] [address] H&P Exam - Hospitalist 04/16/231935 MR#: [id number] Acct: [id number] Name: SAPNA BULLARD Rep #:[id number] : 1940 83 From: Karon Nunes MD PCP: Dr. Nicci Lemus MD Status:ADM I N Location: [place] [address] HPI - General General Date of Admission: 04/16/23 Date of Service: 04/16/23 Chief Complaint: Confusion, weakness, debility. HPI Narrative The patient is an 83 y/o F w/ PMHx: Essential tremor, Allergic rhinitis, GERD, Chronic normocytic anemia/Fe deficiency anemia, Anxiety and Depression, Dementiaunclear type with unclear behavioral disturbance history, Former tobacco use whopresents to the [facility] ED on 04/16/23 with history [...] as well as azithromycin and IV Rocephin. [facility] Medical History (Updated 04/16/23 @ 22:30 by [...] details: PT frequency: 1-2 times per week herrera/religious: Religion seatbelt use: always ROS Review of [...] 80.3 H, Lymph % (Auto) 10.8 L, [place] % (Auto) 8.0, Eos % (Auto) 0.1, [...] Sl. Cloudy, Urine pH 7.0, Ur Specific [place] 1.010, Urine Protein 15 H, Urine Glucose [...] history, Former tobacco use whopresents to the [facility] ED on 04/16/23 with history [...] 16 minutes. Charges/Coding Visit Charges Inpatient E&M: 38800 Init Hosp L3 Procedures Hospitalists Procedures: 22419 Advncd Care Plan 30 Min 04/16/232232 <Electronically signed by Karon Nunes MD> Cosigner Signature (if applicable): CC: Dr. Karon Nunes MD; Dr. Nicci Lemus MD~ Signed [facility] Work Phone: 1(398) 643-344611-02-2023 Discharge summary Author Nicholas Cohen [facility] April 16, 2023 9:08pm Note Date/Time April 16, 2023 7 :09pm [facility] Medical Records Department [address] [place] [address] Emergency Department Summary 04/16/23 MR#: [id number] Acct: [id number] Name: SAPNA BULLARD Rep #:[id number] : 1940 83 From: Nicholas Cohen DO PCP: Dr. Nicci Lemus MD Status:ADM I N Location: [place] [address] HPI History of Present Illness Chief Complaint: [...] or short of breath. She complainsof dysuria. PFSH PFS Medical History Acid reflux Acute UTI Anemia [...] details: PT frequency: 1-2 times per week herrera/religious: Religion seatbelt use: always ROS ROS ED [...] Labs: Laboratory Results - last 24 hr 11/02/23 11/02/23 18:04 18:27 WBC 9.7 RBC 4.34 Hgb 11.7 L Hct 38.2 MCV 88.0 MCH 27.0 MCHC 30.6 L RDW Std Deviation 42.4 RDW Coeff of Tiffanie 13.2 Plt Count 396 MPV 8.6 Immature Gran % (Auto) 0.400 Neut % (Auto) 80.3 H Lymph % (Auto) 10.8 L [place] % (Auto) 8.0 Eos % (Auto) 0.1 [...] Sl. Cloudy Urine pH 7.0 Ur Specific [place] 1.010 Urine Protein 15 H Urine Glucose [...] your Primary Care Provider. Call [facility] ([phone]) or report to the closest Emergency Room. Call 911 if necessary. 04/16/232107 <Electronically signed by Nicholas Cohen DO> Cosigner Signature (if applicable): CC: Dr. Nicci Lemus MD ~ Signed [facility] Work Phone: 1(756) [phone] Hospital Discharge instructions Additional Instructions Recommend repeat basic metabolic panel in 3 to 5 days to assess BUN and creatinine [facility] Work Phone: Consult note Author Tanya Cha [facility] April 23, 2023 1:32pm Note Date/Time April 23, 2023 1 :32pm [facility] Medical Records Department [address] [facility] [place] [address] Counseling Note - Pharmacy 04/23/23 1332 MR#: [id number] Acct: [id number] Name: CAMPOSSAPNA E Rep #:[id number] : 1940 83 From: Tanya Cha PCP: Dr. Nicci Lemus MD Status:DIS I N Y Location: [place] [address] Pharmacy [place] Med Reconciliation Pharmacy Service has performed discharge medication reconciliation for this patient upon transfer to [place] The patient's discharge medication list was reviewed [...] Signature (if applicable): Date CC: ~ Signed [facility] Work Phone: Discharge summary Author John Johnston [facility] April 23, 2023 11:48am Note Date/Time April 23, 2023 1 1:38am [facility] Medical Records Department [address] [place] [id number] Instructions for Home/Discharge Instructions 04/23/23 1138 MR#: [id number] Acct: [id number] Name: SAPNA BULLARD Drew Rep #:[id number] : 1940 83 From: John Johnston DO [...] PO Q4H PRN PRN (Reason: Fever, pain 1-10) Qty: 30 0RF donepezil 10 mg Tablet [...] Up: Lalo Palm DO [Med Staff - Electric Fork Operator] - Within 1 Month Nicci Lemus MD [Primary Care Provider] - Disposition Disposition (needs filled in before D/C Order can be placed): Assisted Living 04/23/23 1148<Electronically signed by John Johnston DO>John Johnston DO CC: Dr. Karon Nunes MD; Dr. Nicci Lemus MD; Dr. Pravin Cruz MD; Dr. Darinel Carlos MD ~ Signed [facility] Work Phone: Discharge summary Author [facility] Note Date/Time February 19, 2025 12:27pm [facility] Medical Records Department [address] [place] [address] Instructions for Home/Discharge Instructions 02/19/25 1226 MR#: [id number] Acct: [id number] Name: SAPNA BULLARD Rep #:[id number] : 1940 85 From: Felicia Paniagua MD [...] Qty: 20 0RF Referrals / Follow Up: Oleghe,Efewongbe, MD [Primary Care Provider] - Within 1 Week Disposition Disposition (needs filled in before D/C Order can be placed): NonSkilled NH/Intermed Care 02/19/25 1227<Electronically signed by Felicia Paniagua MD>Felicia Paniagua MD CC: Dr. Genevieve Wu MD; Dr. Liudmila Morin MD ~ Signed [facility] Work Phone: Evaluation note* Diagnosis Onset Date Resolution Status Cognitive decline acute Essential tremor chronic GERD (gastroesophageal reflux disease) chronic Low back pain chronic Acute hypokalemia acute Acute UTI acute Dehydration acute Encephalopathy acute Fall acute Rhabdomyolysis acute Essential tremor chronic [facility] Work Phone: Evaluation note* Diagnosis Onset [...] infection acut e Vitamin D deficiency acute [facility] Work Phone: Evaluation note* Diagnosis Onset Date Resolution Status Essential tremor chronic Acute hypokalemia resolved Dehydration resolved Encephalopathy resolved Allergic rhinitis acute Debility acute Essential tremor acute Insomnia acute Iron deficiency anemia acute Osteoporosis acute Restless leg syndrome acute Vitamin D deficiency acute Encephalopathy resolved Hypokalemia resolved Rhabdomyolysis resolved Urinary tract infection reso lved Dementia chronic Fatigue chronic [facility] Work Phone: Evaluation note* Diagnosis Onset Date Resolution Status Anxiety chronic Vitamin D deficiency chronic Urinary tract infection none active UTI (urinary tract infection) acute [facility] Work Phone: Evaluation note* Diagnosis Onset Date Resolution Status UTI (urinary tract infection) resolved Anxiety chronic Vitamin D deficiency chronic [facility] Work Phone: Evaluation note* Diagnosis Onset Date Resolution Status Anxiety chronic Vitamin D deficiency chronic Urinary tract infection none active UTI (urinary tract infection) resolved [facility] Work Phone: History and physical note Author Liudmila Morin [facility] Note Date/Time February 14, 2025 3:22pm [facility] Medical Records Department [address] [place] [address] H&P Exam - Hospitalist 02/14/25 1511 MR#: [id number] Acct: [id number] Name: SAPNA BULLARD Rep #:[id number] : 1940 85 From: Liudmila Morin MD PCP: Dr. Genevieve Wu MD Status:A DM IN Location: MD3 OB051-2 HPI - General General Date of Admission: 02/14/25 Date of Service: 02/14/25 Chief Complaint: Altered mental status, weakness HPI Narrative SAPNA BULLARD, is a 85-year-old female history of GERD, dementia, essential tremor,restless leg syndrome who presented to [facility] ED 02/14/2025 from [facility] for confusion, weakness, stool and urinary incontinence. [...] up. Unable to obtain any further history [facility] Medical History (Updated 02/14/25 @ 15:21 by [...] Unknown History gram-2.25 kcal/mL oral liquid (Boost C) propranolol 20 mg tablet 20 mg PO [...] Allergies Allergy Verified 12/07/24 09:25 Family History (Reviewed 12/07/24 @ 09: by Stephanie Yan LPN) Grandmother Colon cancer Father Colon cancer Heart disease Brother Colon cancer Heart disease Mother Heart disease High cholesterol Surgical History (Reviewed 12/07/24 @ 09: by Stephanie Yan LPN) History of carpal tunnel surgery of left wrist History of hip surgery History of orthopedic surgery Social History (Reviewed 12/07/24 @ 09: by Stephanie Yan LPN) household members: none Smoking Status: Former smoker how long ago did patient quit smokin second hand exposure: No alcohol intake: never substance use type: does not use what type of physical activity do you participate in: other details: PT frequency: 1-2 times per week herrera/religious: Religion seatbelt use: always ROS ROS Narrative [...] (Auto) 74.1 H, Lymph % (Auto)11.8 L, [place] % (Auto) 12.2 H, Eos % (Auto) [...] Clarity Clear, Urine pH 6.0, Ur Specific [place] 1.015, Urine Protein Negative, Urine Glucose (UA) [...] 2. Suggestion of COPD. Reading Location: [facility] Assessment & Plan Assessment/Plan (1) Community [...] Morin MD Charges/Coding Visit Charges Inpatient E&M: 85512 Init Hosp L2 02/14/25 1522 <Electronically signed by Liudmila Morin MD> Cosigner Signature (if applicable): CC: Dr. Genevieve Wu MD; Dr. Liudmila Morin MD~ Signed [facility] Work Phone: Reason for referral (narrative)No reason for referral information availableWCleveland [facility] Work Phone: Reason for Referral Status Reason Specialty Diagnoses / Procedures Referred By Contact Referred To Contact Authorized Radiology Diagnoses Other closed displaced fracture of distal end of left humerus, initial encounter Procedures CT ELBOW LEFT WO CONTRAST Gerson Adamson MD [facility] [address] [place] [address] Assessments Diagnosis Other closed displaced fracture of [...] Date/ Time Name of Medical Power of Guide Travel annette bullard December 10, 2021 8:22pm Living Will Yes December 10, 2021 8:22pm Power of Guide Travel Yes December 10 8:22pm Advance Directive Response Recorded Date/ Time Name of Medical Power of Guide Travel Annette Bullard December 11, 2021 1:38am Living Will Yes December 11, 2021 1:38am Power of Guide Travel Yes December 11 1:38am Advance Directive Response Recorded Date/ Time Name of Medical Power of Guide Travel Annette Bullard December 11, 2021 1:38am Name of Medical Power of Guide Travel Annette Bullard December 13, 2021 4:16pm Living Will Yes December 17, 2021 5 :14pm Power of Guide Travel No December 17, 2021 5:14pm Advance Directive Response Recorded Date/ Time Name of Medical Power of Guide Travel Annette Bullard December 11, 2021 1:38am Name of Medical Power of Guide Travel Annette Bullard December 13, 2021 4:16pm Name of Medical Power of Guide Travel son February 15, 2022 1:17pm Living Will Yes February 15, 022 1:17pm Power of Guide Travel Yes February 15, 2022 1:17pm Advance Directive Response Recorded Date/ Time Name of Medical Power of Guide Travel Annette Bullard April 16, 2023 8:33pm Living Will Yes April 16 8:33pm Power of Guide Travel Yes April 16, 2023 8:33pm Advance Directive Response Recorded Date/ Time Living Will Yes April 16 9:33pm Do you have a Healthcare Power of Guide Travel? Yes April 16, 2023 9:33pm Advance Directive Response Recorded Date/ Time Do you have a Healthcare Power of Guide Travel? Yes February 14, 2025 3:37pm Name of Medical Power of Guide Travel thaddeus bullard son February 14, 2025 3:37pm [...] M FU July 19, 2024 9 :51am [facility] WORK July 5:00am J98.4 Other [...] M FU July 19, 2024 9 :51am [facility] WORK July 5:00am J98.4 Other disorders of lung July 162024 5:50pm [facility]OW[facility] August 29, 2024 5:0 0am Lung Nodule September 08, 2024 11: 20am LABWORK October 03, 2024 5:[address] (Self) October 05, 2024 9:0 0am RETIREMENT LAB WORK October 31, 2024 4:0 0am CHEST PAIN November 08, 2024 8:58a m Chief Complaint Admit Date [facility] WORK February 17th , 2025 5:00am J98.4 Other disorders of lung July 162024 5:50pm [facility] August 29, 2024 5:0 0am Lung Nodule September 08, 2024 11: 20am LABWORK October 03, 2024 5:[address] (Self) October 05, 2024 9:0 0am RETIREMENT LAB WORK October 31, 2024 4:0 0am [...] CT (Self) October 05, 2024 9:0 0am RETIREMENT LAB WORK October 31, 2024 4:0 0am [...] CT (Self) October 05, 2024 9:0 0am RETIREMENT LAB WORK October 31, 2024 4:0 0am [...] CT (Self) October 05, 2024 9:0 0am RETIREMENT LAB WORK October 31, 2024 4:0 0am [...] NEW CONCERN October 27, 2024 5:30p m RETIREMENT LAB WORK October 31, 2024 4:0 0am [...] NEW CONCERN October 27, 2024 5:30p m RETIREMENT LAB WORK October 31, 2024 4:0 0am [...] NEW CONCERN October 27, 2024 5:30p m RETIREMENT LAB WORK October 31, 2024 4:0 0am [...] am LABWORK January 02, 2025 5:00 am RETIREMENT LAB WORK January 30, 2025 5:00am PNEUMONIA AND METABOLIC ENCEPHALOPATHY S eptember 2024 3:11pm NEW CONCERN February 14, 2025 4:38pm PNEUMONIA AND METABOLIC ENCEPHALOPATHY S eptember 2024 5:30pm PNEUMONIA AND METABOLIC ENCEPHALOPATHY S eptember 2024 1:24pm PNEUMONIA AND METABOLIC ENCEPHALOPATHY S eptember 2024 3:03am PNEUMONIA AND METABOLIC ENCEPHALOPATHY S eptember 2024 3:00pm PNEUMONIA AND METABOLIC ENCEPHALOPATHY S eptember 2024 12:27pm RE-ADMISSION EXAM February 20, 2025 2:44pm LABWORK February 21, 2025 5:00am RETIREMENT LAB WORK February 27 5:00am RETIREMENT LAB WORK March 07 4:05am Additional Source Comments INFORMATION SOURCE (unrecogn ized section and content) DATE CREATED AUTHOR 07/07/2020 [facility] DATE CREATED AUTHOR AUTHOR'S ORGANIZ ATION 12/16/2022 [facility] ([place]) DATE CREATED AUTHOR AUTHOR'S ORGANIZ ATION 02/03/2025 [facility] DATE CREATED AUTHOR AUTHOR'S ORGANIZ ATION 04/26/2025 [facility] Goals (unrecognized section [...] Provider, Referr ing Provider Active Elliott Grigsby VANSTONE MACHINE OPERATOR, VANSTONE MACHINE OPERATOR-C Attending Provider Active Team Status: Active Member Role Status Dates Dr. Nicholas Cohen DO Emergency Provider Active Dr. Nicci Lemus MD Primary Care Provider Active Dr. Karon Nunes MD Admit Provider, Other Provider Active Dr. Darinel Carlos MD Attending Provider, Other Provi migdalia Active Team Status: Active Member Role Status Dates Dr. Nicholas Cohen DO Emergency Provider Active Dr. iNcci Lemus MD Primary Care Provider Active Dr. [...] End: July 04, 2024 Barbara Castro NP VANSTONE MACHINE OPERATOR-C Attending Provider Active Start: July 04, 2024 [...] 2024 End: November 21, 2024 Barbara Castro VANSTONE MACHINE OPERATOR, VANSTONE MACHINE OPERATOR-C Attending Provider Active Start: November 21, 2024 [...] 2024 End: October 27, 2024 Barbara Castro NP, VANSTONE MACHINE OPERATOR-C Attending Provider Active Start: October 27, 2024 [...] End: October 27, 2024 Barbara Castro NP VANSTONE MACHINE OPERATOR-C Attending Provider Active Start: October 27, 2024 [...] End: November 21, 2024 Barbara Castro NP VANSTONE MACHINE OPERATOR-C Attending Provider Active Start: November 21, 2024 [...] Star t: February 15, 2025 Dr. Liudmila oMrin MD Other Provider Active Star t: February [...] End: November 21, 2024 Barbara Castro NP, VANSTONE MACHINE OPERATOR-C Attending physician Active Start: November 21, 2024 [...] 2025 End: February 14, 2025 Barbara Castro NP VANSTONE MACHINE OPERATOR-C Attending physician Active Start: February 14, 2025 [...] 2025 End: February 20, 2025 Barbara Castro NP, VANSTONE MACHINE OPERATOR-C Attending physician Active Start: February 20, 2025 [...] physician Active Start: March 07, 2025 Genevieve UCBA MD Referring Provider Active Start: March 07, [...] THE PRIMARY CLINICAL RECORDS. [facility] [employer] provides no warranty or guarantee of the accuracy or completeness of information in this document.
[2025-05-22 08:20] LABS: Hematocrit 36.0 % (37-47); Hemoglobin 11.1 g/dL (12.0-15.0); Immature Granulocytes Count 0.020 X10^3/uL (0.0-0.0); Mean Corp Hgb Conc 30.8 g/dL (32-36); Mean Corpuscular Volume 90.7 fL (81-99); Mean Platelet Vol. 8.9 fl (6.2-12.0); NRBC Flagged by Analyzer 0 % (0-5); Platelet Count 408 K/mm3 (150-450); RBC Distribution Width CV 13.9 % (11.6-14.6); RBC Distribution Width SD 46.1 fl (35.1-43.9); Red Blood Count 3.97 M/mm3 (4.2-5.4); White Blood Count 6.6 K/mm3 (4.4-11.0)
[2025-05-22 08:40] LABS: Anion Gap 9 (5-15); BUN 10 mg/dL (4-19); BUN/Creat Ratio 9.3 RATIO (10-20); Calcium,Total 9.3 mg/dL (7.6-11.0); Carbon Dioxide 28.2 mmol/L (21.0-32.0); Chloride 103 mmol/L (98-108); Glucose 87 mg/dL (70-99); Potassium 4.0 mmol/L (3.3-5.1)
== END ==
LOC: OLS.WHLTSB 04:00
PROVIDERS: PCP Internal Medicine; Referring Provider Internal Medicine; Visit Provider Internal Medicine
DX: I10 Essential (primary) hypertension (principal)
CPT/HCPCS: 36415; 80048; 85025

== ENCOUNTER → 2025-05-29 04:00 | Outpatient (REF) | payer MEDICARE, SELFPAY ==
--- OUTSIDE RECORDS SUMMARY | 2025-05-29 03:39 | XMS RPT_ITS | CCD ---
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 Lalo Palm Primary Care Provider Dr. Lalo Palm Attending Provider Dr. Lalo Palm Referring Provider Dr. Angel [place] Emergency Provider Dr. Karon Nunes Admit Provider Dr. Karon Nunes Other Provider Dr. Darinel Carlos Attending Provider Dr. Darinel Carlos Other Provider Dr. Laol Palm Primary Care Provider Dr. Lalo Palm Attending Provider Dr. Lalo Palm Referring Provider Dr. Vish Cook Attending Provider DR NICCI LEMUS MD Attending Unavailable DR NICCI LEMUS MD Primary Care Unavailable Dr. Lalo Palm Primary Care Provider Dr. Lalo Palm Referring Provider Dr. Vish Cook Attending Provider Seb CHIP PERSON, CHIP PERSONRobbin Gonzalez Attending Provider Dr. Nicholas Cohen Emergency Provider Dr. Nicci Lemus Primary Care Provider Dr. Karon Nunes Admit Provider Dr. Karon Nunes Other Provider Dr. Darinel Carlos Attending Provider Dr. Darinel Carlos Other Provider Dr. Pravin Cruz Attending Provider Dr. Pravin Cruz Other Provider Dr. John Johnston Attending Provider Dr. 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 Vallejo Referring Provider [phone] Jaden CHIP PERSON-C, Idalia Hilton Attending Provider Jazmin SÁNCHEZ, Dr. Vallejo Primary Care Provider Genevieve Wu MD Attending Provider Unavailkali Castro CHIP PERSON-CBarbara Attending Provider Jazmin SÁNCHEZ, Dr. Vallejo Primary Care Provider Jazmin SÁNCHEZ, Dr. Vallejo Referring Provider [phone] Matthew CHIP PERSON-C, Attending Provider Dr. Willian Palm DO Attending Provider WHITE, MAROCS Admitting Unavailable KORNHAUS, R NICCI Consulting Unavailable [...] Dr. Sharon Crouch MD Attending Provider [phone] Dr. Willian Palm DO Attending Provider [phone] Dr. Willian Palm DO Referring Provider Jazmin SÁNCHEZ, Dr. Vallejo Referring Provider Joyce SÁNCHEZ, Dr. Wahl Attending Provider Jaden PENNINGTONCIdalia Attending Provider [facility], Dr. Koenig Emergency Provider Mikel SÁNCHEZ, Dr. Nur Admit Provider Mikel SÁNCHEZ, Dr. Nur Attending Provider Mikel SÁNCHEZ, Dr. Nur Other Provider Arcelia SÁNCHEZ, Dr. Felicia Nick Attending Provider Arcelia SÁNCHEZ, Dr. Felicia Nick Other Provider Manju SÁNCHEZ, Dr. Karon Marrero Attending Provider Jazmin SÁNCHEZ, Dr. Vallejo Primary Care Physician Matthew PACHECO-Barbara Allan Attending Physician Jazmin SÁNCHEZ, Genevieve Attending Physician Unavail able [facility] Dr. Willian RINCON Attending Physician Joyce SÁNCHEZ, Dr. Wahl Attending Physician [phone] Idalia Aguirre Attending Physician [facility], Dr. Koenig Emergency Departmen t Physician Mikel SÁNCHEZ, Dr. Nur Admitting Physician Mikel SÁNCHEZ, Dr. Nur Nurse Practitioner Arcelia SÁNCHEZ, Dr. Felicia Nick Attending Physician Arcelia SÁNCHEZ, [...] Unavailable Oleghe, Efewongbe Primary Care Unavailable Tickton CHIP PERSON, Attending Unavailable Oleghe, Efewongbe Primary Care Unavailable Tickton CHIP PERSON, Attending Unavailable Oleghe, Efewongbe Primary Care Unavailable Vish Cook Attending Unavailable Oleghe, Efewongbe Primary Care Unavailable Oleghe, Efewongbe Referring Unavailable Idalia Stanley Attending Unavailable Oleghe, Efewongbe Primary Care Unavailable Oleghe, Efewongbe Referring Unavailable Oleghe, Efewongbe Primary Care Unavailable Tickton CHIP PERSON, Attending Unavailable Tickton CHIP PERSON, Attending Unavailable Oleghe, Efewongbe Primary Care Unavailable Oleghe, Efewongbe Primary Care Unavailable Oleghe, Efewongbe Attending Unavailable Tickton CHIP PERSON, Attending Unavailable Oleghe, Efewongbe Primary Care Unavailable Oleghe, Efewongbe Primary Care Unavailable Oleghe, Efewongbe Attending Unavailable Tickton CHIP PERSON, Attending Unavailable Oleghe, Efewongbe Primary Care Unavailable [...] Consulting Unavailable Lux Fletcher Consulting Unavailable Jassi Ahston Consulting Unavailable Bladimir Treviño Consulting Unavailable Cindyton CHIP PERSON, Attending Unavailable Oleghe, Efewongbe Primary Care Unavailable Oleghe, Efewongbe Primary Care Unavailable Tickton CHIP PERSON, Attending Unavailable Yunior Desai Referring Unavailable Yunior [...] Unavailabl e Oleghe, Efewongbe Primary Care Unavailable [facility] Unavailable [place] Gerardo CUBAongbe Attending UnavailHilaria Medina Consulting Unavailable Hilaria Villagran Admitting Unavailable [facility] Unavailable Pravin Cruz Attending [...] ( 0.06 %) nasal spray ; 2 [place] up to three times daily as needed prn allergic rhinitis for 30 days Quantity: 15 {Milliliter} Refills: 11 Ordered: 13-Nov-2022 CAMDEN Thurman Start: 07-Apr-2022 End: 13-Nov-2022 Status: Inactive Comments: Medication taken as needed. Start: 05-08-2021 End: 07-10-2022 Start: 05-08-2021 End: 07-10-2022 Ipratropium [place] 42 mcg ( 0.06 %) spray,non-aerosol Discontinued 2 NMA INTRANASAL THREE TIMES A DAY as needed for allergy symptoms 29 06May 08, 2021 1:00am July 10, 2022 12:25pm administer into each nostril Start: 05-08-2021 End: 07-10-2022 take 1 spray(s) nasal route three times daily Ipratropium [place] Discontinued 2 SPRAY INTRANASAL THREE TIMES A [...] %) nasal spray aerosol ; 2 sprays [place] every 12 hours as needed for rhinitis [...] mc g/actuation nasal spray,suspension ; 1 spray [place] daily as needed for allergic rhinitis for [...] 10 m g oral tablet (20 sources) K-mgkreu-Z-aspartate Receptor Antagonist Start: 02-11-2022 End: 01-20-2024 Start: [...] mouth three times daily Sod Phos Di, Woods-K Phos Woods (M-Vinl-Hjqzflz) 250 mg tablet Discontinued 2 TABLET PO [...] 1:00am July 12, 2024 1:25pm Moved to [facility] 10. Comment on above: This prescription [...] to further discuss the symptoms with the paediatric physiotherapist.). You should call our office if you [...] history is reported by a family member (Sdaiq Mora here with pt.). 04-09-2022 Unclassified (2 [...] Range Facility Absolute lymphocyte countOrd ered By: Abemihirkarleysharon Blackjuanitadrew on 03-07-2025 Lymphocytes Auto (Unsp spec) [#/Vol] 2.20 10*3/uL 0.83-4.51 [facility] Anion gap in Serum or Plasma Ordered By: Genevieve Wu on 03-07-2025 Anion gap [Moles/Vol] 12 mmol/L 5-15 [facility] Automated lymphocyte count a s percentage of total leukocytesOrdered By: Genevieve Wu on 03-07-2025 Lymphocytes/100 WBC Auto (Unsp spec) 28.3 % 19-41 [facility] BUN/creatinine ratioOrdered By: [facility] Atlantasharon Blackjuanitadrew on 03-07-2025 Urea nitrogen/Creatinine [Mass ratio] 13.7 mg/mg 10-20 [facility] Basophil percentageOrdered B y: Gerardokarleysharon Blackjuanitadrew on 03-07-2025 Basophils/100 WBC (Bld) 0.5 % 0-1 [facility] Carbon dioxide, total [Moles /volume] in Central venous bloodOrdered By: mihirsmyrnasharon Wu on 03-07-2025 CO2 [Moles/Vol] 26.6 mmol/L 21.0-32.0 [facility] Chloride assayOrdered By: mihirdion Wu on 03-07-2025 Chloride [Moles/Vol] 99 mmol/L 98-108 [facility] Eosinophil percentageOrdered By: [facility] Atlantasharon Blackdrew on 03-07-2025 Eosinophils/100 WBC (Bld) 2.4 % 0-5 [facility] Erythrocyte distribution wid th ratioOrdered By: mihirsmyrnasharon Blackjuanitadrew on 03-07-2025 Erythrocyte distribution width (RBC) [Ratio] 15.2 % High 11.6-14.6 [facility] Erythrocyte distribution wid th standard deviationOrdered By: [facility] Atlantasharon Wu on 03-07-2025 Erythrocyte distribution width (RBC) [Ratio] 51.2 fl High 35.1-43.9 [facility] Glomerular filtration rate ( GFR) estimation/1.73 sq m using serum, plasma, or whole bOrdered By: Genevieve Blackjuanitadrew on 03-07-2025 GFR/1.73 sq M.predicted among non-blacks MDRD (S/P/Bld) [Vol rate/Area] 59 mL/min/{1.73_m2} Low >60 [facility] Hematocrit Auto (Bld) [Volum e fraction]Ordered By: Genevieve Wu on 03-07-2025 Hematocrit (Bld) [Volume fraction] 39.0 % 37-47 [facility] Hemoglobin measurementOrdere d By: mihirkarleysharon Wu on 03-07-2025 Hemoglobin (Bld) [Mass/Vol] 12.1 g/dL 12.0-15.0 [facility] Immature granulocytes/100 WB C Auto (Bld)Ordered By: Genevieve Wu on 03-07-2025 Immature granulocytes/100 WBC (Bld) 0.400 % 0.0-0.9 [facility] MCV (mean corpuscular volume ) determinationOrdered By: Genevieve Wu on 03-07-2025 MCV (RBC) [Entitic vol] 91.8 fL 81-99 [facility] Mean corpuscular hemoglobin (MCH) determinationOrdered By: mihirsmyrnasharon Blackjuanitadrew on 03-07-2025 MCH (RBC) [Entitic mass] 28.5 pg 27.0-32.0 [facility] Monocyte percentageOrdered B y: Genevieve Wu on 03-07-2025 Monocytes/100 WBC (Bld) 12.0 % High 0-10 [facility] Neutrophil percentageOrdered By: mihirsmyrnasharon Wu on 03-07-2025 Neutrophils/100 WBC (Bld) 56.4 % 47-70 [facility] Platelet countOrdered By: Abe yasminsharon Blackjuanitadrew on 03-07-2025 Platelets (Bld) [#/Vol] 452 10*3/uL High 150-450 [facility] Potassium measurement (mass/ volume)Ordered By: Genevieve Wu on 03-07-2025 Potassium (Unsp spec) [Mass/Vol] 3.7 mmol/L 3.3-5.1 [facility] RBC Auto (Bld) [#/Vol]Ordere d By: Genevieve Wu on 03-07-2025 RBC (Bld) [#/Vol] 4.25 10*6/uL 4.2-5.4 [facility] Serum creatinine measurement (mass/volume)Ordered By: Abemihirkarleysharon Blackjuanitadrew on 03-07-2025 Creatinine [Mass/Vol] 0.95 mg/dL 0.70-1.20 [facility] Serum glucose measurement (m ass/volume)Ordered By: Genevieve Blackjuanitadrew on 03-07-2025 Glucose [Mass/Vol] 82 mg/dL 70-99 [facility] Serum or plasma calcium candice urement (mass/volume)Ordered By: Abehaseeb Blackjuanitadrew on 03-07-2025 Calcium [Mass/Vol] 9.7 mg/dL 7.6-11.0 [facility] Serum or plasma urea nitroge n measurement (mass/volume)Ordered By: Genevieve Blackjuanitadrew on 03-07-2025 Urea nitrogen [Mass/Vol] 13 mg/dL 4-19 [facility] Sodium levelOrdered By: Gerardo Wu on 03-07-2025 Sodium [Moles/Vol] 138 mmol/L 133-145 [facility] White blood cell (WBC) count Ordered By: Abemihirkarleysharon Blackjuanitadrew on 03-07-2025 WBC (Bld) [#/Vol] 7.8 10*3/uL 4.4-11.0 [facility] Absolute lymphocyte countOrd ered By: Abemihirkarleysharon Blackjuanitadrew on 02-27-2025 Lymphocytes Auto (Unsp spec) [#/Vol] 1.81 10*3/uL 0.83-4.51 [facility] Anion gap in Serum or Plasma Ordered By: Genevieve Waynejuanitadrew on 02-27-2025 Anion gap [Moles/Vol] 13 mmol/L 5-15 [facility] Automated lymphocyte count a s percentage of total leukocytesOrdered By: Abemihirkarleysharon Blackjuanitadrew on 02-27-2025 Lymphocytes/100 WBC Auto (Unsp spec) 24.8 % 19-41 [facility] BUN/creatinine ratioOrdered By: Genevieve Wu on 02-27-2025 Urea nitrogen/Creatinine [Mass ratio] 12.0 mg/mg 10-20 [facility] Basophil percentageOrdered B y: Genevieve Wu on 02-27-2025 Basophils/100 WBC (Bld) 0.5 % 0-1 [facility] Bilirubin directOrdered By: Genevieve Wu on 02-27-2025 Bilirubin.direct [Mass/Vol] 0.11 mg/dL 0.00-0.30 [facility] Bilirubin, totalOrdered By: Genevieve Wu on 02-27-2025 Bilirubin [Mass/Vol] 0.24 mg/dL 0.00-1.30 [facility] Calculated very low density lipoprotein (VLDL) cholesterol measurementOrdered By: Genevieve Wu on 02-27-2025 Calculated very low density lipoprotein (VLDL) cholesterol measurement 15 mg/dL 5-40 [facility] Carbon dioxide, total [Moles /volume] in Central venous bloodOrdered By: Genevieve Wu on 02-27-2025 CO2 [Moles/Vol] 22.7 mmol/L 21.0-32.0 [facility] Chloride assayOrdered By: Abe ashsharon Wu on 02-27-2025 Chloride [Moles/Vol] 107 mmol/L 98-108 [facility] Eosinophil percentageOrdered By: Genevieve Wu on 02-27-2025 Eosinophils/100 WBC (Bld) 2.5 % 0-5 [facility] Erythrocyte distribution wid th ratioOrdered By: Genevieve Wu on 02-27-2025 Erythrocyte distribution width (RBC) [Ratio] 15.6 % High 11.6-14.6 [facility] Erythrocyte distribution wid th standard deviationOrdered By: Genevieve Wu on 02-27-2025 Erythrocyte distribution width (RBC) [Ratio] 53.2 fl High 35.1-43.9 [facility] Glomerular filtration rate ( GFR) estimation/1.73 sq m using serum, plasma, or whole bOrdered By: Genevieve Wu on 02-27-2025 GFR/1.73 sq M.predicted among non-blacks MDRD (S/P/Bld) [Vol rate/Area] 58 mL/min/{1.73_m2} Low >60 [facility] Hematocrit Auto (Bld) [Volum e fraction]Ordered By: Genevieve Wu on 02-27-2025 Hematocrit (Bld) [Volume fraction] 33.0 % Low 37-47 [facility] Hemoglobin measurementOrdere d By: Genevieve Wu on 02-27-2025 Hemoglobin (Bld) [Mass/Vol] 10.1 g/dL Low 12.0-15.0 [facility] Immature granulocytes/100 WB C Auto (Bld)Ordered By: Genevieve Wu on 02-27-2025 Immature granulocytes/100 WBC (Bld) 0.700 % 0.0-0.9 [facility] LDL calc ser/plasOrdered By: Gerardosmyrnasharon Wu on 02-27-2025 Cholesterol in LDL [Mass/Vol] 103 mg/dL [facility] MCV (mean corpuscular volume ) determinationOrdered By: haseeb Wu on 02-27-2025 MCV (RBC) [Entitic vol] 93.5 fL 81-99 [facility] Mean corpuscular hemoglobin (MCH) determinationOrdered By: Genevieve Wu on 02-27-2025 MCH (RBC) [Entitic mass] 28.6 pg 27.0-32.0 [facility] Monocyte percentageOrdered B y: Genevieve Wu on 02-27-2025 Monocytes/100 WBC (Bld) 10.6 % High 0-10 [facility] Neutrophil percentageOrdered By: haseeb uW on 02-27-2025 Neutrophils/100 WBC (Bld) 60.9 % 47-70 [facility] No Panel InformationOrdered By: Genevieve Wu on 02-27-2025 23 U/L <32 [facility] Platelet countOrdered By: Abe Wu on 02-27-2025 Platelets (Bld) [#/Vol] 364 10*3/uL 150-450 [facility] Potassium measurement (mass/ volume)Ordered By: Genevieve Wu on 02-27-2025 Potassium (Unsp spec) [Mass/Vol] 3.7 mmol/L 3.3-5.1 [facility] RBC Auto (Bld) [#/Vol]Ordere d By: Genevieve Wu on 02-27-2025 RBC (Bld) [#/Vol] 3.53 10*6/uL Low 4.2-5.4 [facility] Serum creatinine measurement (mass/volume)Ordered By: Genevieve Wu on 02-27-2025 Creatinine [Mass/Vol] 0.97 mg/dL 0.70-1.20 [facility] Serum globulin measurementOr dered By: Genevieve Wu on 02-27-2025 Globulin (S) [Mass/Vol] 2.7 g/dL 2.2-4.2 [facility] Serum glucose measurement (m ass/volume)Ordered By: Genevieve Wu on 02-27-2025 Glucose [Mass/Vol] 121 mg/dL High 70-99 [facility] Serum or plasma alanine carpio otransferase (ALT) measurementOrdered By: Genevieve Wu on 02-27-2025 ALT [Catalytic activity/Vol] 13 U/L <35 [facility] Serum or plasma albumin candice urement (mass/volume)Ordered By: Genevieve Wu on 02-27-2025 Albumin [Mass/Vol] 3.3 g/dL Low 3.4-4.8 [facility] Serum or plasma alkaline anthony sphatase measurementOrdered By: Genevieve Wu on 02-27-2025 ALP [Catalytic activity/Vol] 106 U/L High 35-104 [facility] Serum or plasma calcium candice urement (mass/volume)Ordered By: Genevieve Wu on 02-27-2025 Calcium [Mass/Vol] 8.6 mg/dL 7.6-11.0 [facility] Serum or plasma cholesterol in HDL measurement (mass/volume)Ordered By: Genevieve Wu on 02-27-2025 Cholesterol in HDL [Mass/Vol] 38 mg/dL Low >40 [facility] Serum or plasma cholesterol measurement (mass/volume)Ordered By: Genevieve Wu on 02-27-2025 Cholesterol [Mass/Vol] 156 mg/dL <201 [facility] Serum or plasma urea nitroge n measurement (mass/volume)Ordered By: Genevieve Wu on 02-27-2025 Urea nitrogen [Mass/Vol] 12 mg/dL 4- [facility] Sodium levelOrdered By: mihir Wu on 02-27-2025 Sodium [Moles/Vol] 142 mmol/L 133-145 [facility] Total proteinOrdered By: Garrydrew Wu on 02-27-2025 Protein [Mass/Vol] 6.0 g/dL 5.9-8.4 [facility] White blood cell (WBC) count Ordered By: Genevieve Wu on 02-27-2025 WBC (Bld) [#/Vol] 7.3 10*3/uL 4.4-11.0 [facility] Basic Metabolic Profile (BMP )on 02-23-2025 BUN Normal -19 [facility] Comment on above: Result Comment: Canc elled via OM: Order cancelled - Patient discharged Performed By: #### L 500.2500, L100.0100 ####[facility] [address] [place], [address] BUN/CRE Normal 10-20 [facility] Comment on above: Result Comment: Canc elled via OM: Order cancelled - Patient discharged Performed By: #### L 500.2500, L100.0100 ####[facility] [address] [place], [address] Calcium Normal 7.6-11.0 [facility] Comment on above: Result Comment: Canc elled via OM: Order cancelled - Patient discharged Performed By: #### L 500.2500, L100.0100 ####[facility] [address] [place], [address] CL Normal 98-108 [facility] Comment on above: Result Comment: Canc elled via OM: Order cancelled - Patient discharged Performed By: #### L 500.2500, L100.0100 ####[facility] [address] [place], [address] CO2 Normal 21.0-32.0 [facility] Comment on above: Result Comment: Canc elled via OM: Order cancelled - Patient discharged Performed By: #### L 500.2500, L100.0100 ####[facility] [address] [place], [address] CREAT,SERUM Normal 0.70-1.20 [facility] Comment on above: Result Comment: Canc elled via OM: Order cancelled - Patient discharged Performed By: #### L 500.2500, L100.0100 ####[facility] [address] [place], [address] eGFR Normal >60 [facility] Comment on above: Result Comment: Canc elled via OM: Order cancelled - Patient discharged Performed By: #### L 500.2500, L100.0100 ####[facility] [address] [place], [address] GAP Normal 5-15 [facility] Comment on above: Result Comment: Canc elled via OM: Order cancelled - Patient discharged Performed By: #### L 500.2500, L100.0100 ####[facility] [address] [place], [address] GLU Normal 70-99 [facility] Comment on above: Result Comment: Canc elled via OM: Order cancelled - Patient discharged Performed By: #### L 500.2500, L100.0100 ####[facility] [address] [place], [address] Potassium Normal 3.3-5.1 [facility] Comment on above: Result Comment: Canc elled via OM: Order cancelled - Patient discharged Performed By: #### L 500.2500, L100.0100 ####[facility] [address] [place], [address] Basic Metabolic Profile (BMP) Normal 133-145 [facility] Comment on above: Result Comment: Canc elled via OM: Order cancelled - Patient discharged Performed By: #### L 500.2500, L100.0100 ####[facility] [address] [place], [address] CBC W/Diff, Automatedon 09- Absolute Neut Normal 2.0-7.7 [facility] Comment on above: Result Comment: Canc elled via OM: Order cancelled - Patient discharged Performed By: #### L 500.2500, L100.0100 ####[facility] [address] [place], [address] HCT Normal 37-47 [facility] Comment on above: Result Comment: Canc elled via OM: Order cancelled - Patient discharged Performed By: #### L 500.2500, L100.0100 ####[facility] [address] [place], [address] HGB Normal 12.0-15.0 [facility] Comment on above: Result Comment: Canc elled via OM: Order cancelled - Patient discharged Performed By: #### L 500.2500, L100.0100 ####[facility] [address] [place], [address] MCH Normal 27.0-32.0 [facility] Comment on above: Result Comment: Canc elled via OM: Order cancelled - Patient discharged Performed By: #### L 500.2500, L100.0100 ####[facility] [address] [place], [address] MCHC Normal 32-36 [facility] Comment on above: Result Comment: Canc elled via OM: Order cancelled - Patient discharged Performed By: #### L 500.2500, L100.0100 ####[facility] [address] [place], [address] MCV Normal 81-99 [facility] Comment on above: Result Comment: Canc elled via OM: Order cancelled - Patient discharged Performed By: #### L 500.2500, L100.0100 ####[facility] [address] [place], [address] NEUT% Normal 47-70 [facility] Comment on above: Result Comment: Canc elled via OM: Order cancelled - Patient discharged Performed By: #### L 500.2500, L100.0100 ####[facility] [address] [place], [address] PLT Normal 150-450 [facility] Comment on above: Result Comment: Canc elled via OM: Order cancelled - Patient discharged Performed By: #### L 500.2500, L100.0100 ####[facility] [address] [place], [address] RBC Normal 4.2-5.4 [facility] Comment on above: Result Comment: Canc elled via OM: Order cancelled - Patient discharged Performed By: #### L 500.2500, L100.0100 ####[facility] [address] [place], [address] RDW CV Normal 11.6-14.6 [facility] Comment on above: Result Comment: Canc elled via OM: Order cancelled - Patient discharged Performed By: #### L 500.2500, L100.0100 ####[facility] [address] [place], [address] RDW SD Normal 35.1-43.9 [facility] Comment on above: Result Comment: Canc elled via OM: Order cancelled - Patient discharged Performed By: #### L 500.2500, L100.0100 ####[facility] [address] [place], [address] WBC Normal 4.4-11.0 [facility] Comment on above: Result Comment: Canc elled via OM: Order cancelled - Patient discharged Performed By: #### L 500.2500, L100.0100 ####[facility] [address] [place], [address] Basic Metabolic Profile (BMP )on 02-22-2025 BUN Normal 4-19 [facility] Comment on above: Result Comment: Canc elled via OM: Order cancelled - Patient discharged Performed By: #### L 100.0100, L500.2500 ####[facility] [address] [place], [address] BUN/CRE Normal 10-20 [facility] Comment on above: Result Comment: Canc elled via OM: Order cancelled - Patient discharged Performed By: #### L 100.0100, L500.2500 ####[facility] [address] [place], [address] Calcium Normal 7.6-11.0 [facility] Comment on above: Result Comment: Canc elled via OM: Order cancelled - Patient discharged Performed By: #### L 100.0100, L500.2500 ####[facility] [address] [place], [address] CL Normal 98-108 [facility] Comment on above: Result Comment: Canc elled via OM: Order cancelled - Patient discharged Performed By: #### L 100.0100, L500.2500 ####[facility] [address] [place], [address] CO2 Normal 21.0-32.0 [facility] Comment on above: Result Comment: Canc elled via OM: Order cancelled - Patient discharged Performed By: #### L 100.0100, L500.2500 ####[facility] [address] [place], [place], [address] CREAT,SERUM Normal 0.70-1.20 [facility] Comment on above: Result Comment: Canc elled via OM: Order cancelled - Patient discharged Performed By: #### L 100.0100, L500.2500 ####[facility] [address] [place], [address] eGFR Normal >60 [facility] Comment on above: Result Comment: Canc elled via OM: Order cancelled - Patient discharged Performed By: #### L 100.0100, L500.2500 ####[facility] [address] [place], [address] GAP Normal 5-15 [facility] Comment on above: Result Comment: Canc elled via OM: Order cancelled - Patient discharged Performed By: #### L 100.0100, L500.2500 ####[facility] [address] [place], [address] GLU Normal 70-99 [facility] Comment on above: Result Comment: Canc elled via OM: Order cancelled - Patient discharged Performed By: #### L 100.0100, L500.2500 ####[facility] [address] [place], [address] Potassium Normal 3.3-5.1 [facility] Comment on above: Result Comment: Canc elled via OM: Order cancelled - Patient discharged Performed By: #### L 100.0100, L500.2500 ####[facility] [address] [place], [address] Basic Metabolic Profile (BMP) Normal 133-145 [facility] Comment on above: Result Comment: Canc elled via OM: Order cancelled - Patient discharged Performed By: #### L 100.0100, L500.2500 ####[facility] [address] [place], [address] CBC W/Diff, Automatedon 09-1 0-2024 Absolute Neut Normal 2.0-7.7 [facility] Comment on above: Result Comment: Canc elled via OM: Order cancelled - Patient discharged Performed By: #### L 100.0100, L500.2500 ####[facility] [address] [place], [address] HCT Normal 37-47 [facility] Comment on above: Result Comment: Canc elled via OM: Order cancelled - Patient discharged Performed By: #### L 100.0100, L500.2500 ####[facility] [address] [place], [address] HGB Normal 12.0-15.0 [facility] Comment on above: Result Comment: Canc elled via OM: Order cancelled - Patient discharged Performed By: #### L 100.0100, L500.2500 ####[facility] [address] [place], [address] MCH Normal 27.0-32.0 [facility] Comment on above: Result Comment: Canc elled via OM: Order cancelled - Patient discharged Performed By: #### L 100.0100, L500.2500 ####[facility] [address] [place], [address] MCHC Normal 32-36 [facility] Comment on above: Result Comment: Canc elled via OM: Order cancelled - Patient discharged Performed By: #### L 100.0100, L500.2500 ####[facility] [address] [place], [address] MCV Normal 81-99 [facility] Comment on above: Result Comment: Canc elled via OM: Order cancelled - Patient discharged Performed By: #### L 100.0100, L500.2500 ####[facility] [address] [place], [address] NEUT% Normal 47-70 [facility] Comment on above: Result Comment: Canc elled via OM: Order cancelled - Patient discharged Performed By: #### L 100.0100, L500.2500 ####[facility] [address] [place], [address] PLT Normal 150-450 [facility] Comment on above: Result Comment: Canc elled via OM: Order cancelled - Patient discharged Performed By: #### L 100.0100, L500.2500 ####[facility] [address] [place], [address] RBC Normal 4.2-5.4 [facility] Comment on above: Result Comment: Canc elled via OM: Order cancelled - Patient discharged Performed By: #### L 100.0100, L500.2500 ####[facility] [address] [place], [address] RDW CV Normal 11.6-14.6 [facility] Comment on above: Result Comment: Canc elled via OM: Order cancelled - Patient discharged Performed By: #### L 100.0100, L500.2500 ####[facility] [address] [place], [address] RDW SD Normal 35.1-43.9 [facility] Comment on above: Result Comment: Canc elled via OM: Order cancelled - Patient discharged Performed By: #### L 100.0100, L500.2500 ####[facility] [address] [place], [address] WBC Normal 4.4-11.0 [facility] Comment on above: Result Comment: Canc elled via OM: Order cancelled - Patient discharged Performed By: #### L 100.0100, L500.2500 ####[facility] [address] [place], [address] Absolute lymphocyte countOrd ered By: Genevieve Wu on 02-21-2025 Lymphocytes Auto (Unsp spec) [#/Vol] 1.74 10*3/uL 0.83-4.51 [place] [facility] Anion gap in Serum or Plasma Ordered By: Genevieve Wu on 02-21-2025 Anion gap [Moles/Vol] 14 mmol/L 5-15 [facility] Automated lymphocyte count a s percentage of total leukocytesOrdered By: Genevieve Wu on 02-21-2025 Lymphocytes/100 WBC Auto (Unsp spec) 21.8 % 19-41 [facility] BUN/creatinine ratioOrdered By: Genevieve Wu on 02-21-2025 Urea nitrogen/Creatinine [Mass ratio] 24.3 mg/mg High 10-20 [facility] Basic Metabolic Profile (BMP )on 02-21-2025 BUN Normal 4-19 [facility] Comment on above: Result Comment: Canc elled via OM: Order cancelled - Patient discharged Performed By: #### L 500.2500, L100.0100 ####[facility] [address] [place], [address] BUN/CRE Normal 10-20 [facility] Comment on above: Result Comment: Canc elled via OM: Order cancelled - Patient discharged Performed By: #### L 500.2500, L100.0100 ####[facility] [address] [place], [address] Calcium Normal 7.6-11.0 [facility] Comment on above: Result Comment: Canc elled via OM: Order cancelled - Patient discharged Performed By: #### L 500.2500, L100.0100 ####[facility] [address] [place], [address] CL Normal 98-108 [facility] Comment on above: Result Comment: Canc elled via OM: Order cancelled - Patient discharged Performed By: #### L 500.2500, L100.0100 ####[facility] [address] [place], [address] CO2 Normal 21.0-32.0 [facility] Comment on above: Result Comment: Canc elled via OM: Order cancelled - Patient discharged Performed By: #### L 500.2500, L100.0100 ####[facility] [address] [place], [address] CREAT,SERUM Normal 0.70-1.20 [facility] Comment on above: Result Comment: Canc elled via OM: Order cancelled - Patient discharged Performed By: #### L 500.2500, L100.0100 ####[facility] [address] [place], [address] eGFR Normal >60 [facility] Comment on above: Result Comment: Canc elled via OM: Order cancelled - Patient discharged Performed By: #### L 500.2500, L100.0100 ####[facility] [address] [place], [address] GAP Normal 5-15 [facility] Comment on above: Result Comment: Canc elled via OM: Order cancelled - Patient discharged Performed By: #### L 500.2500, L100.0100 ####[facility] [address] [place], [address] GLU Normal 70-99 [facility] Comment on above: Result Comment: Canc elled via OM: Order cancelled - Patient discharged Performed By: #### L 500.2500, L100.0100 ####[facility] [address] [place], [address] Potassium Normal 3.3-5.1 [facility] Comment on above: Result Comment: Canc elled via OM: Order cancelled - Patient discharged Performed By: #### L 500.2500, L100.0100 ####[facility] [address] [place], [address] Basic Metabolic Profile (BMP) Normal 133-145 [facility] Comment on above: Result Comment: Canc elled via OM: Order cancelled - Patient discharged Performed By: #### L 500.2500, L100.0100 ####[facility] [address] [place], [address] Basophil percentageOrdered B y: Genevieve Wu on 02-21-2025 Basophils/100 WBC (Bld) 0.5 % 0-1 [facility] CBC W/Diff, Automatedon 09- Absolute Neut Normal 2.0-7.7 [facility] Comment on above: Result Comment: Canc elled via OM: Order cancelled - Patient discharged Performed By: #### L 500.2500, L100.0100 ####[facility] [address] [place], [address] HCT Normal 37-47 [facility] Comment on above: Result Comment: Canc elled via OM: Order cancelled - Patient discharged Performed By: #### L 500.2500, L100.0100 ####[facility] [address] [place], [address] HGB Normal 12.0-15.0 [facility] Comment on above: Result Comment: Canc elled via OM: Order cancelled - Patient discharged Performed By: #### L 500.2500, L100.0100 ####[facility] [address] [place], [address] MCH Normal 27.0-32.0 [facility] Comment on above: Result Comment: Canc elled via OM: Order cancelled - Patient discharged Performed By: #### L 500.2500, L100.0100 ####[facility] [address] [place], [address] MCHC Normal 32-36 [facility] Comment on above: Result Comment: Canc elled via OM: Order cancelled - Patient discharged Performed By: #### L 500.2500, L100.0100 ####[facility] [address] [place], [address] MCV Normal 81-99 [facility] Comment on above: Result Comment: Canc elled via OM: Order cancelled - Patient discharged Performed By: #### L 500.2500, L100.0100 ####[facility] [address] [place], [address] NEUT% Normal 47-70 [facility] Comment on above: Result Comment: Canc elled via OM: Order cancelled - Patient discharged Performed By: #### L 500.2500, L100.0100 ####[facility] [address] [place], [address] PLT Normal 150-450 [facility] Comment on above: Result Comment: Canc elled via OM: Order cancelled - Patient discharged Performed By: #### L 500.2500, L100.0100 ####[facility] [address] [place], [address] RBC Normal 4.2-5.4 [facility] Comment on above: Result Comment: Canc elled via OM: Order cancelled - Patient discharged Performed By: #### L 500.2500, L100.0100 ####[facility] [address] [place], [address] RDW CV Normal 11.6-14.6 [facility] Comment on above: Result Comment: Canc elled via OM: Order cancelled - Patient discharged Performed By: #### L 500.2500, L100.0100 ####[facility] [address] [place], [address] RDW SD Normal 35.1-43.9 [facility] Comment on above: Result Comment: Canc elled via OM: Order cancelled - Patient discharged Performed By: #### L 500.2500, L100.0100 ####[facility] [address] [place], [address] WBC Normal 4.4-11.0 [facility] Comment on above: Result Comment: Canc elled via OM: Order cancelled - Patient discharged Performed By: #### L 500.2500, L100.0100 ####[facility] [address] [place], [address] Carbon dioxide, total [Moles /volume] in Central venous bloodOrdered By: Genevieve Wu on 02-21-2025 CO2 [Moles/Vol] 20.9 mmol/L Low 21.0-32.0 [facility] Chloride assayOrdered By: Abe Wu on 02-21-2025 Chloride [Moles/Vol] 104 mmol/L 98-108 [facility] Eosinophil percentageOrdered By: [facility] Atlantasharon Wu on 02-21-2025 Eosinophils/100 WBC (Bld) 2.5 % 0-5 [facility] Erythrocyte distribution wid th ratioOrdered By: [facility] Waynedrew on 02-21-2025 Erythrocyte distribution width (RBC) [Ratio] 15.4 % High 11.6-14.6 [facility] Erythrocyte distribution wid th standard deviationOrdered By: [facility] Atlantasharon Wu on 02-21-2025 Erythrocyte distribution width (RBC) [Ratio] 50.3 fl High 35.1-43.9 [facility] Glomerular filtration rate ( GFR) estimation/1.73 sq m using serum, plasma, or whole bOrdered By: [facility] Atlantasharon Wu on 02-21-2025 GFR/1.73 sq M.predicted among non-blacks MDRD (S/P/Bld) [Vol rate/Area] 60 mL/min/{1.73_m2} >60 [facility] Hematocrit Auto (Bld) [Volum e fraction]Ordered By: [facility] Atlantasharon Wu on 02-21-2025 Hematocrit (Bld) [Volume fraction] 33.6 % Low 37-47 [facility] Hemoglobin measurementOrdere d By: [facility] Atlantasharon Blackdrew 02-21-2025 Hemoglobin (Bld) [Mass/Vol] 10.6 g/dL Low 12.0-15.0 [facility] Immature granulocytes/100 WB C Auto (Bld)Ordered By: [facility] Atlantasharon Wu on 02-21-2025 Immature granulocytes/100 WBC (Bld) 1.500 % High 0.0-0.9 [facility] MCV (mean corpuscular volume ) determinationOrdered By: Genevieve Wu on 02-21-2025 MCV (RBC) [Entitic vol] 89.1 fL 81-99 [facility] Mean corpuscular hemoglobin (MCH) determinationOrdered By: Genevieve Wu on 02-21-2025 MCH (RBC) [Entitic mass] 28.1 pg 27.0-32.0 [facility] Monocyte percentageOrdered B y: Genevieve Wu on 02-21-2025 Monocytes/100 WBC (Bld) 11.4 % High 0-10 [facility] Neutrophil percentageOrdered By: Genevieve Wu on 02-21-2025 Neutrophils/100 WBC (Bld) 62.3 % 47-70 [facility] Platelet countOrdered By: Abe Wu on 02-21-2025 Platelets (Bld) [#/Vol] 357 10*3/uL 150-450 [facility] Potassium measurement (mass/ volume)Ordered By: Genevieve Wu on 02-21-2025 Potassium (Unsp spec) [Mass/Vol] 3.5 mmol/L 3.3-5.1 [facility] RBC Auto (Bld) [#/Vol]Ordere d By: Genevieve Wu on 02-21-2025 RBC (Bld) [#/Vol] 3.77 10*6/uL Low 4.2-5.4 [facility] Serum creatinine measurement (mass/volume)Ordered By: Genevieve Wu on 02-21-2025 Creatinine [Mass/Vol] 0.94 mg/dL 0.70-1.20 [facility] Serum glucose measurement (m ass/volume)Ordered By: Genevieve Wu on 02-21-2025 Glucose [Mass/Vol] 91 mg/dL 70-99 [facility] Serum or plasma calcium candice urement (mass/volume)Ordered By: Genevieve Wu on 02-21-2025 Calcium [Mass/Vol] 9.0 mg/dL 7.6-11.0 [facility] Serum or plasma urea nitroge n measurement (mass/volume)Ordered By: Genevieve Wu on 02-21-2025 Urea nitrogen [Mass/Vol] 23 mg/dL High 4- [facility] Sodium levelOrdered By: Gerardo Wu on 02-21-2025 Sodium [Moles/Vol] 138 mmol/L 133-145 [facility] White blood cell (WBC) count Ordered By: Genevieve Wu on 02-21-2025 WBC (Bld) [#/Vol] 8.0 10*3/uL 4.4-11.0 [facility] Basic Metabolic Profile (BMP )on 02-20-2025 BUN Normal 4-19 [facility] Comment on above: Result Comment: Canc elled via OM: Order cancelled - Patient discharged Performed By: #### L 500.2500, L100.0100 ####[facility] [address] [place], [address] BUN/CRE Normal 10-20 [facility] Comment on above: Result Comment: Canc elled via OM: Order cancelled - Patient discharged Performed By: #### L 500.2500, L100.0100 ####[facility] [address] [place], [address] Calcium Normal 7.6-11.0 [facility] Comment on above: Result Comment: Canc elled via OM: Order cancelled - Patient discharged Performed By: #### L 500.2500, L100.0100 ####[facility] [address] [place], [address] CL Normal 98-108 [facility] Comment on above: Result Comment: Canc elled via OM: Order cancelled - Patient discharged Performed By: #### L 500.2500, L100.0100 ####[facility] [address] [place], [address] CO2 Normal 21.0-32.0 [facility] Comment on above: Result Comment: Canc elled via OM: Order cancelled - Patient discharged Performed By: #### L 500.2500, L100.0100 ####[facility] [address] [place], [address] CREAT,SERUM Normal 0.70-1.20 [facility] Comment on above: Result Comment: Canc elled via OM: Order cancelled - Patient discharged Performed By: #### L 500.2500, L100.0100 ####[facility] [address] [place], [address] eGFR Normal >60 [facility] Comment on above: Result Comment: Canc elled via OM: Order cancelled - Patient discharged Performed By: #### L 500.2500, L100.0100 ####[facility] [address] [place], [address] GAP Normal 5-15 [facility] Comment on above: Result Comment: Canc elled via OM: Order cancelled - Patient discharged Performed By: #### L 500.2500, L100.0100 ####[facility] [address] [place], [address] GLU Normal 70-99 [facility] Comment on above: Result Comment: Canc elled via OM: Order cancelled - Patient discharged Performed By: #### L 500.2500, L100.0100 ####[facility] [address] [place], [address] Potassium Normal 3.3-5.1 [facility] Comment on above: Result Comment: Canc elled via OM: Order cancelled - Patient discharged Performed By: #### L 500.2500, L100.0100 ####[facility] [address] [place], [address] Basic Metabolic Profile (BMP) Normal 133-145 [facility] Comment on above: Result Comment: Canc elled via OM: Order cancelled - Patient discharged Performed By: #### L 500.2500, L100.0100 ####[facility] [address] [place], [address] CBC W/Diff, Automatedon 09-0 8-2024 Absolute Neut Normal 2.0-7.7 [facility] Comment on above: Result Comment: Canc elled via OM: Order cancelled - Patient discharged Performed By: #### L 500.2500, L100.0100 ####[facility] [address] [place], [address] HCT Normal 37-47 [facility] Comment on above: Result Comment: Canc elled via OM: Order cancelled - Patient discharged Performed By: #### L 500.2500, L100.0100 ####[facility] [address] [place], [address] HGB Normal 12.0-15.0 [facility] Comment on above: Result Comment: Canc elled via OM: Order cancelled - Patient discharged Performed By: #### L 500.2500, L100.0100 ####[facility] [address] [place], [address] MCH Normal 27.0-32.0 [facility] Comment on above: Result Comment: Canc elled via OM: Order cancelled - Patient discharged Performed By: #### L 500.2500, L100.0100 ####[facility] [address] [place], [address] MCHC Normal 32-36 [facility] Comment on above: Result Comment: Canc elled via OM: Order cancelled - Patient discharged Performed By: #### L 500.2500, L100.0100 ####[facility] [address] [place], [address] MCV Normal 81-99 [facility] Comment on above: Result Comment: Canc elled via OM: Order cancelled - Patient discharged Performed By: #### L 500.2500, L100.0100 ####[facility] [address] [place], [address] NEUT% Normal 47-70 [facility] Comment on above: Result Comment: Canc elled via OM: Order cancelled - Patient discharged Performed By: #### L 500.2500, L100.0100 ####[facility] [address] [place], [address] PLT Normal 150-450 [facility] Comment on above: Result Comment: Canc elled via OM: Order cancelled - Patient discharged Performed By: #### L 500.2500, L100.0100 ####[facility] [address] [place], [address] RBC Normal 4.2-5.4 [facility] Comment on above: Result Comment: Canc elled via OM: Order cancelled - Patient discharged Performed By: #### L 500.2500, L100.0100 ####[facility] [address] [place], [address] RDW CV Normal 11.6-14.6 [facility] Comment on above: Result Comment: Canc elled via OM: Order cancelled - Patient discharged Performed By: #### L 500.2500, L100.0100 ####[facility] [address] [place], [address] RDW SD Normal 35.1-43.9 [facility] Comment on above: Result Comment: Canc elled via OM: Order cancelled - Patient discharged Performed By: #### L 500.2500, L100.0100 ####[facility] [address] [place], [address] WBC Normal 4.4-11.0 [facility] Comment on above: Result Comment: Canc elled via OM: Order cancelled - Patient discharged Performed By: #### L 500.2500, L100.0100 ####[facility] [address] [place], [address] Absolute lymphocyte countOrd ered By: Felicia Paniagua on 02-19-2025 Lymphocytes Auto (Unsp spec) [#/Vol] 1.51 10*3/uL 0.83-4.51 [facility] Anion gap in Serum or Plasma Ordered By: Felicia Arcelia on 02-19-2025 Anion gap [Moles/Vol] 11 mmol/L 5-15 [facility] Automated lymphocyte count a s percentage of total leukocytesOrdered By: Felicia Kimblevelma on 02-19-2025 Lymphocytes/100 WBC Auto (Unsp spec) 16.5 % Low 19-41 [facility] BUN/creatinine ratioOrdered By: Felicaikali Paniagua on 02-19-2025 Urea nitrogen/Creatinine [Mass ratio] 26.7 mg/mg High 10-20 [facility] Basic Metabolic Profile (BMP )on 02-19-2025 BUN/CRE 26.7 RATIO High 10- [facility] Comment on above: Performed By: #### L 500.2500, L100.0100 ####[facility] [address] [place], [address] Calcium [Mass/Vol] 9.1 mg/dL Normal 7.6-11.0 [facility] Comment on above: Performed By: #### L 500.2500, L100.0100 ####[facility] [address] [place], [address] Chloride [Moles/Vol] 106 mmol/L Normal 98-108 [facility] Comment on above: Performed By: #### L 500.2500, L100.0100 ####[facility] [address] [place], [address] CO2 [Moles/Vol] 23.0 mmol/L Normal 21.0-32.0 [facility] Comment on above: Performed By: #### L 500.2500, L100.0100 ####[facility] [address] [place], [address] Creatinine [Mass/Vol] 0.78 mg/dL Normal 0.70-1.20 [facility] Comment on above: Performed By: #### L 500.2500, L100.0100 ####[facility] [address] [place], [address] ECRCL 45.54 ml/min Low 50-250 [facility] Comment on above: Performed By: #### L 500.2500, L100.0100 ####[facility] [address] [place], [address] GAP 11 Normal 5-15 [facility] Comment on above: Performed By: #### L 500.2500, L100.0100 ####[facility] [address] [place], [address] GFR/1.73 sq M.predicted among non-blacks MDRD (S/P/Bld) [Vol rate/Area] 75 mL/min/{1.73_m2} Normal >60 [facility] Comment on above: Result Comment: mL/m in/1.73m2 CKD-EPI Creatinine Equation (2020) Performed By: #### L 500.2500, L100.0100 ####[facility] [address] [place], [address] Glucose [Mass/Vol] 102 mg/dL High 70-99 [facility] Comment on above: Performed By: #### L 500.2500, L100.0100 ####[facility] [address] [place], [address] Potassium [Moles/Vol] 3.9 mmol/L Normal 3.3-5.1 [facility] Comment on above: Performed By: #### L 500.2500, L100.0100 ####[facility] [address] [place], [address] Sodium [Moles/Vol] 139 mmol/L Normal 133-145 [facility] Comment on above: Performed By: #### L 500.2500, L100.0100 ####[facility] [address] [place], [address] Urea nitrogen [Mass/Vol] 21 mg/dL High 4-19 [facility] Comment on above: Performed By: #### L 500.2500, L100.0100 ####[facility] [address] [place], [address] Basophil percentageOrdered B y: Felicia Paniagua on 02-19-2025 Basophils/100 WBC (Bld) 0.3 % 0-1 [facility] CBC W/Diff, Automatedon Absolute Lymph 1.51 X10 3/uL Normal 0.83-4.51 [facility] Comment on above: Performed By: #### L 500.2500, L100.0100 ####[facility] [address] [place], [address] Absolute Neut 6.3 X10 3/uL Normal 2.0-7.7 [facility] Comment on above: Performed By: #### L 500.2500, L100.0100 ####[facility] [address] [place], [address] Basophils/100 WBC (Bld) 0.3 % Normal 0-1 [facility] Comment on above: Performed By: #### L 500.2500, L100.0100 ####[facility] [address] [place], [address] Eosinophils/100 WBC (Bld) 2.2 % Normal 0-5 [facility] Comment on above: Performed By: #### L 500.2500, L100.0100 ####[facility] [address] [place], [address] Erythrocyte distribution width (RBC) [Ratio] 15.8 % High 11.6-14.6 [facility] Comment on above: Performed By: #### L 500.2500, L100.0100 ####[facility] [address] [place], [address] Hematocrit (Bld) [Volume fraction] 35.0 % Low 37-47 [facility] Comment on above: Performed By: #### L 500.2500, L100.0100 ####[facility] [address] [place], [address] Hemoglobin (Bld) [Mass/Vol] 11.0 g/dL Low 12.0-15.0 [facility] Comment on above: Performed By: #### L 500.2500, L100.0100 ####[facility] [address] [place], [address] IG% 0.700 Normal 0.0-0.9 [facility] Comment on above: Result Comment: IG% - Immature Granulocytes (promyelocytes, myelocytes andmetamyelocytes) > 1% indicates that a LEFT SHIFT is Present. Performed By: #### L 500.2500, L100.0100 ####[facility] [address] [place], [address] Lymphocytes/100 WBC (Bld) 16.5 % Low 19-41 [facility] Comment on above: Performed By: #### L 500.2500, L100.0100 ####[facility] [address] [place], [address] MCH (RBC) [Entitic mass] 28.2 pg Normal 27.0-32.0 [facility] Comment on above: Performed By: #### L 500.2500, L100.0100 ####[facility] [address] [place], [address] MCHC (RBC) [Mass/Vol] 31.4 g/dL Low 32-36 [facility] Comment on above: Performed By: #### L 500.2500, L100.0100 ####[facility] [address] [place], [address] MCV (RBC) [Entitic vol] 89.7 fL Normal 81-99 [facility] Comment on above: Performed By: #### L 500.2500, L100.0100 ####[facility] [address] [place], [address] Monocytes/100 WBC (Bld) 11.2 % High 0-10 [facility] Comment on above: Performed By: #### L 500.2500, L100.0100 ####[facility] [address] [place], [address] Neutrophils/100 WBC (Bld) 69.1 % Normal 47-70 [facility] Comment on above: Performed By: #### L 500.2500, L100.0100 ####[facility] [address] [place], [address] Nucleated RBC (Bld) [#/Vol] 0 10*3/uL Normal 0-5 [facility] Comment on above: Performed By: #### L 500.2500, L100.0100 ####[facility] [address] [place], [address] Platelet mean volume (Bld) [Entitic vol] 8.8 fL Normal 6.2-12.0 [facility] Comment on above: Performed By: #### L 500.2500, L100.0100 ####[facility] [address] [place], [address] Platelets (Bld) [#/Vol] 312 10*3/uL Normal 150-450 [facility] Comment on above: Performed By: #### L 500.2500, L100.0100 ####[facility] [address] [place], [address] RBC (Bld) [#/Vol] 3.90 10*6/uL Low 4.2-5.4 [facility] Comment on above: Performed By: #### L 500.2500, L100.0100 ####[facility] [address] [place], [address] RDW SD 51.9 fl High 35.1-43.9 [facility] Comment on above: Performed By: #### L 500.2500, L100.0100 ####[facility] [address] [place], [address] WBC (Bld) [#/Vol] 9.1 10*3/uL Normal 4.4-11.0 [facility] Comment on above: Performed By: #### L 500.2500, L100.0100 ####[facility] [address] [place], [address] Carbon dioxide, total [Moles /volume] in Central venous bloodOrdered By: Felicia Paniagua on 02-19-2025 CO2 [Moles/Vol] 23.0 mmol/L 21.0-32.0 [facility] Chloride assayOrdered By: Jacquelyn Paniagua on 02-19-2025 Chloride [Moles/Vol] 106 mmol/L 98-108 [facility] Discharge Instructionon 09-0 Discharge Instruction Normal [facility] Eosinophil percentageOrdered By: Felicia Paniagua on 02-19-2025 Eosinophils/100 WBC (Bld) 2.2 % 0-5 [facility] Erythrocyte distribution wid th ratioOrdered By: Felicia Paniagua on 02-19-2025 Erythrocyte distribution width (RBC) [Ratio] 15.8 % High 11.6-14.6 [facility] Erythrocyte distribution wid th standard deviationOrdered By: Felicia Paniagua on 02-19-2025 Erythrocyte distribution width (RBC) [Ratio] 51.9 fl High 35.1-43.9 [facility] Glomerular filtration rate ( GFR) estimation/1.73 sq m using serum, plasma, or whole bOrdered By: Felicia Paniagua on 02-19-2025 GFR/1.73 sq M.predicted among non-blacks MDRD (S/P/Bld) [Vol rate/Area] 75 mL/min/{1.73_m2} >60 [facility] Hematocrit Auto (Bld) [Volum e fraction]Ordered By: Felicia Paniagua on 02-19-2025 Hematocrit (Bld) [Volume fraction] 35.0 % Low 37-47 [facility] Hemoglobin measurementOrdere d By: Felicia Paniagua on 02-19-2025 Hemoglobin (Bld) [Mass/Vol] 11.0 g/dL Low 12.0-15.0 [facility] Immature granulocytes/100 WB C Auto (Bld)Ordered By: Felicia Paniagua on 02-19-2025 Immature granulocytes/100 WBC (Bld) 0.700 % 0.0-0.9 [facility] MCV (mean corpuscular volume ) determinationOrdered By: Felicia Paniagua on 02-19-2025 MCV (RBC) [Entitic vol] 89.7 fL 81-99 [facility] Mean corpuscular hemoglobin (MCH) determinationOrdered By: Felicia Paniagua on 02-19-2025 MCH (RBC) [Entitic mass] 28.2 pg 27.0-32.0 [facility] Monocyte percentageOrdered B y: Felicia Paniagua on 02-19-2025 Monocytes/100 WBC (Bld) 11.2 % High 0-10 [facility] Neutrophil percentageOrdered By: Felicia Paniagua on 02-19-2025 Neutrophils/100 WBC (Bld) 69.1 % 47-70 [facility] Platelet countOrdered By: Jacquelyn Paniagua on 02-19-2025 Platelets (Bld) [#/Vol] 312 10*3/uL 150-450 [facility] Potassium measurement (mass/ volume)Ordered By: Felicia Paniagua on 02-19-2025 Potassium (Unsp spec) [Mass/Vol] 3.9 mmol/L 3.3-5.1 [facility] RBC Auto (Bld) [#/Vol]Ordere d By: Felicia Paniagua on 02-19-2025 RBC (Bld) [#/Vol] 3.90 10*6/uL Low 4.2-5.4 [facility] Serum creatinine measurement (mass/volume)Ordered By: Felicia Paniagua on 02-19-2025 Creatinine [Mass/Vol] 0.78 mg/dL 0.70-1.20 [facility] Serum glucose measurement (m ass/volume)Ordered By: Felicia Paniagua on 02-19-2025 Glucose [Mass/Vol] 102 mg/dL High 70-99 [facility] Serum or plasma calcium candice urement (mass/volume)Ordered By: Felicia Paniagua on 02-19-2025 Calcium [Mass/Vol] 9.1 mg/dL 7.6-11.0 [facility] Serum or plasma urea nitroge n measurement (mass/volume)Ordered By: Felicia Paniagua on 02-19-2025 Urea nitrogen [Mass/Vol] 21 mg/dL High 4-19 [facility] Sodium levelOrdered By: Felicia Paniagua on 02-19-2025 Sodium [Moles/Vol] 139 mmol/L 133-145 [facility] White blood cell (WBC) count Ordered By: Felicia Paniagua on 02-19-2025 WBC (Bld) [#/Vol] 9.1 10*3/uL 4.4-11.0 [facility] Basic Metabolic Profile (BMP )on 02-18-2025 BUN/CRE 23.6 RATIO High 10-20 [facility] Comment on above: Order Comment: PATIE NT IS VERY AGGRESSIVE,PAN SILVA RN ASKED THAT [place]EDONT WAKE HER. SPOKE TO JAY HANNAH, SHE WILL CALL ONCE PATIENTIS AWAKE AND WE ARE ABLE TO TRY HER Performed By: #### L 500.2500, L100.0100 ####[facility] [address] [place], [address] Calcium [Mass/Vol] 9.0 mg/dL Normal 7.6-11.0 [facility] Comment on above: Order Comment: PATIE NT IS VERY AGGRESSIVE,PAN SILVA RN ASKED THAT [place] HER. SPOKE TO JAY HANNAH, SHE WILL CALL ONCE PATIENTIS AWAKE AND WE ARE ABLE TO TRY HER Performed By: #### L 500.2500, L100.0100 ####[facility] [address] [place], [address] Chloride [Moles/Vol] 105 mmol/L Normal 98-108 [facility] Comment on above: Order Comment: PATIE NT IS VERY AGGRESSIVE,PAN SILVA RN ASKED THAT [place] HER. SPOKE TO JAY RN, SHE WILL CALL ONCE PATIENTIS AWAKE AND WE ARE ABLE TO TRY HER Performed By: #### L 500.2500, L100.0100 ####[facility] [address] [place], [address] CO2 [Moles/Vol] 19.1 mmol/L Low 21.0-32.0 [facility] Comment on above: Order Comment: PATIE NT IS VERY AGGRESSIVE,PAN SILVA RN ASKED THAT [place] HER. SPOKE TO JAY RN, SHE WILL CALL ONCE PATIENTIS AWAKE AND WE ARE ABLE TO TRY HER Performed By: #### L 500.2500, L100.0100 ####[facility] [address] [place], [address] Creatinine [Mass/Vol] 0.77 mg/dL Normal 0.70-1.20 [facility] Comment on above: Order Comment: PATIE NT IS VERY AGGRESSIVE,PAN SILVA RN ASKED THAT [place] HER. SPOKE TO JAY RN, SHE WILL CALL ONCE PATIENTIS AWAKE AND WE ARE ABLE TO TRY HER Performed By: #### L 500.2500, L100.0100 ####[facility] [address] [place], [address] ECRCL 45.54 ml/min Low 50-250 [facility] Comment on above: Order Comment: PATIE NT IS VERY AGGRESSIVE,PAN SILVA RN ASKED THAT [place] HER. SPOKE TO JAY RN, SHE WILL CALL ONCE PATIENTIS AWAKE AND WE ARE ABLE TO TRY HER Performed By: #### L 500.2500, L100.0100 ####[facility] [address] [place], [address] GAP 13 Normal 5-15 [facility] Comment on above: Order Comment: PATIE NT IS VERY AGGRESSIVE,PAN SILVA RN ASKED THAT [place] HER. SPOKE TO JAY RN, SHE WILL CALL ONCE PATIENTIS AWAKE AND WE ARE ABLE TO TRY HER Performed By: #### L 500.2500, L100.0100 ####[facility] [address] [place], [address] GFR/1.73 sq M.predicted among non-blacks MDRD (S/P/Bld) [Vol rate/Area] 76 mL/min/{1.73_m2} Normal >60 [facility] Comment on above: Order Comment: PATIE NT IS VERY AGGRESSIVE,PAN SILVA RN ASKED THAT [place] HER. SPOKE TO JAY RN, SHE WILL CALL ONCE PATIENTIS AWAKE AND WE ARE ABLE TO TRY HER Result Comment: mL/m in/1.73m2 CKD-EPI Creatinine Equation (2020) Performed By: #### L 500.2500, L100.0100 ####[facility] [address] [place], [address] Glucose [Mass/Vol] 141 mg/dL High 70-99 [facility] Comment on above: Order Comment: PATIE NT IS VERY AGGRESSIVE,PAN SILVA RN ASKED THAT [place] HER. SPOKE TO JAY RN, SHE WILL CALL ONCE PATIENTIS AWAKE AND WE ARE ABLE TO TRY HER Performed By: #### L 500.2500, L100.0100 ####[facility] [address] [place], [address] Potassium [Moles/Vol] 4.0 mmol/L Normal 3.3-5.1 [facility] Comment on above: Order Comment: PATIE NT IS VERY AGGRESSIVE,PAN SILVA RN ASKED THAT [place] HER. SPOKE TO JAY RN, SHE WILL CALL ONCE PATIENTIS AWAKE AND WE ARE ABLE TO TRY HER Performed By: #### L 500.2500, L100.0100 ####[facility] [address] [place], [address] Sodium [Moles/Vol] 137 mmol/L Normal 133-145 [facility] Comment on above: Order Comment: PATIE NT IS VERY AGGRESSIVE,PAN SILVA RN ASKED THAT [place] HER. SPOKE TO JAY RN, SHE WILL CALL ONCE PATIENTIS AWAKE AND WE ARE ABLE TO TRY HER Performed By: #### L 500.2500, L100.0100 ####[facility] [address] [place], [address] Urea nitrogen [Mass/Vol] 18 mg/dL Normal 4-19 [facility] Comment on above: Order Comment: PATIE NT IS VERY AGGRESSIVE,PAN SILVA RN ASKED THAT [place] [place] HER. SPOKE TO JAY RN, SHE WILL CALL ONCE PATIENTIS AWAKE AND WE ARE ABLE TO TRY HER Performed By: #### L 500.2500, L100.0100 ####[facility] [address] [place], [address] CBC W/Diff, Automatedon 09-0 6-2024 Absolute Lymph 1.13 X10 3/uL Normal 0.83-4.51 [facility] Comment on above: Order Comment: PATIE NT IS VERY AGGRESSIVE,PAN SILVA RN ASKED THAT [place] HER. SPOKE TO JAY RN, SHE WILL CALL ONCE PATIENTIS AWAKE AND WE ARE ABLE TO TRY HER Performed By: #### L 500.2500, L100.0100 ####[facility] [address] [place], [address] Absolute Neut 5.5 X10 3/uL Normal 2.0-7.7 [facility] Comment on above: Order Comment: PATIE NT IS VERY AGGRESSIVE,PAN SILVA RN ASKED THAT [employer] WAKE HER. SPOKE TO JAY RN, SHE WILL CALL ONCE PATIENTIS AWAKE AND WE ARE ABLE TO TRY HER Performed By: #### L 500.2500, L100.0100 ####[facility] [address] [place], [address] Basophils/100 WBC (Bld) 0.4 % Normal 0-1 [facility] Comment on above: Order Comment: PATIE NT IS VERY AGGRESSIVE,PAN SILVA RN ASKED THAT [employer] WAKE HER. SPOKE TO JAY RN, SHE WILL CALL ONCE PATIENTIS AWAKE AND WE ARE ABLE TO TRY HER Performed By: #### L 500.2500, L100.0100 ####[facility] [address] [place], [address] Eosinophils/100 WBC (Bld) 2.0 % Normal 0-5 [facility] Comment on above: Order Comment: PATIE NT IS VERY AGGRESSIVE,PAN SILVA RN ASKED THAT [place] HER. SPOKE TO JAY RN, SHE WILL CALL ONCE PATIENTIS AWAKE AND WE ARE ABLE TO TRY HER Performed By: #### L 500.2500, L100.0100 ####[facility] [address] [place], [address] Erythrocyte distribution width (RBC) [Ratio] 15.9 % High 11.6-14.6 [facility] Comment on above: Order Comment: PATIE NT IS VERY AGGRESSIVE,PAN SILVA RN ASKED THAT [place] HER. SPOKE TO JAY RN, SHE WILL CALL ONCE PATIENTIS AWAKE AND WE ARE ABLE TO TRY HER Performed By: #### L 500.2500, L100.0100 ####[facility] [address] [place], [address] Hematocrit (Bld) [Volume fraction] 37.0 % Normal 37-47 [facility] Comment on above: Order Comment: PATIE NT IS VERY AGGRESSIVE,PAN SILVA RN ASKED THAT [place] HER. SPOKE TO JAY RN, SHE WILL CALL ONCE PATIENTIS AWAKE AND WE ARE ABLE TO TRY HER Performed By: #### L 500.2500, L100.0100 ####[facility] [address] [place], [address] Hemoglobin (Bld) [Mass/Vol] 11.7 g/dL Low 12.0-15.0 [facility] Comment on above: Order Comment: PATIE NT IS VERY AGGRESSIVE,PAN SILVA RN ASKED THAT [place] HER. SPOKE TO JAY RN, SHE WILL CALL ONCE PATIENTIS AWAKE AND WE ARE ABLE TO TRY HER Performed By: #### L 500.2500, L100.0100 ####[facility] [address] [place], [address] IG% 0.700 Normal 0.0-0.9 [facility] Comment on above: Order Comment: PATIE NT IS VERY AGGRESSIVE,PAN SILVA RN ASKED THAT [place] HER. SPOKE TO JAY RN, SHE WILL CALL ONCE PATIENTIS AWAKE AND WE ARE ABLE TO TRY HER Result Comment: IG% - Immature Granulocytes (promyelocytes, myelocytes andmetamyelocytes) > 1% indicates that a LEFT SHIFT is Present. Performed By: #### L 500.2500, L100.0100 ####[facility] [address] [place], [address] Lymphocytes/100 WBC (Bld) 14.7 % Low 19-41 [facility] Comment on above: Order Comment: PATIE NT IS VERY AGGRESSIVE,PAN SILVA RN ASKED THAT [place] HER. SPOKE TO JAY RN, SHE WILL CALL ONCE PATIENTIS AWAKE AND WE ARE ABLE TO TRY HER Performed By: #### L 500.2500, L100.0100 ####[facility] [address] [place], [address] MCH (RBC) [Entitic mass] 28.2 pg Normal 27.0-32.0 [facility] Comment on above: Order Comment: PATIE NT IS VERY AGGRESSIVE,PAN SILVA RN ASKED THAT [place] HER. SPOKE TO JAY RN, SHE WILL CALL ONCE PATIENTIS AWAKE AND WE ARE ABLE TO TRY HER Performed By: #### L 500.2500, L100.0100 ####[facility] [address] [place], [address] MCHC (RBC) [Mass/Vol] 31.6 g/dL Low 32-36 [facility] Comment on above: Order Comment: PATIE NT IS VERY AGGRESSIVE,PAN SILVA RN ASKED THAT [place] HER. SPOKE TO JAY RN, SHE WILL CALL ONCE PATIENTIS AWAKE AND WE ARE ABLE TO TRY HER Performed By: #### L 500.2500, L100.0100 ####[facility] [address] [place], [address] MCV (RBC) [Entitic vol] 89.2 fL Normal 81-99 [facility] Comment on above: Order Comment: PATIE NT IS VERY AGGRESSIVE,PAN SILVA RN ASKED THAT [place] HER. SPOKE TO JAY RN, SHE WILL CALL ONCE PATIENTIS AWAKE AND WE ARE ABLE TO TRY HER Performed By: #### L 500.2500, L100.0100 ####[facility] [address] [place], [address] Monocytes/100 WBC (Bld) 10.8 % High 0-10 [facility] Comment on above: Order Comment: PATIE NT IS VERY AGGRESSIVE,PAN SILVA RN ASKED THAT [place] HER. SPOKE TO JAY RN, SHE WILL CALL ONCE PATIENTIS AWAKE AND WE ARE ABLE TO TRY HER Performed By: #### L 500.2500, L100.0100 ####[facility] [address] [place], [address] Neutrophils/100 WBC (Bld) 71.4 % High 47-70 [facility] Comment on above: Order Comment: PATIE NT IS VERY AGGRESSIVE,PAN SILVA RN ASKED THAT [place] HER. SPOKE TO JAY RN, SHE WILL CALL ONCE PATIENTIS AWAKE AND WE ARE ABLE TO TRY HER Performed By: #### L 500.2500, L100.0100 ####[facility] [address] [place], [address] Nucleated RBC (Bld) [#/Vol] 0 10*3/uL Normal 0-5 [facility] Comment on above: Order Comment: PATIE NT IS VERY AGGRESSIVE,PAN SILVA RN ASKED THAT [place] HER. SPOKE TO JAY RN, SHE WILL CALL ONCE PATIENTIS AWAKE AND WE ARE ABLE TO TRY HER Performed By: #### L 500.2500, L100.0100 ####[facility] [address] [place], [address] Platelet mean volume (Bld) [Entitic vol] 8.7 fL Normal 6.2-12.0 [facility] Comment on above: Order Comment: PATIE NT IS VERY AGGRESSIVE,PAN SILVA RN ASKED THAT [place] HER. SPOKE TO JAY RN, SHE WILL CALL ONCE PATIENTIS AWAKE AND WE ARE ABLE TO TRY HER Performed By: #### L 500.2500, L100.0100 ####[facility] [address] [place], [address] Platelets (Bld) [#/Vol] 338 10*3/uL Normal 150-450 [facility] Comment on above: Order Comment: PATIE NT IS VERY AGGRESSIVE,PAN SILVA RN ASKED THAT [place] HER. SPOKE TO JAY RN, SHE WILL CALL ONCE PATIENTIS AWAKE AND WE ARE ABLE TO TRY HER Performed By: #### L 500.2500, L100.0100 ####[facility] [address] [place], [address] RBC (Bld) [#/Vol] 4.15 10*6/uL Low 4.2-5.4 [facility] Comment on above: Order Comment: PATIE NT IS VERY AGGRESSIVE,PAN SILVA RN ASKED THAT [place] HER. SPOKE TO JAY RN, SHE WILL CALL ONCE PATIENTIS AWAKE AND WE ARE ABLE TO TRY HER Performed By: #### L 500.2500, L100.0100 ####[facility] [address] [place], [address] RDW SD 52.6 fl High 35.1-43.9 [facility] Comment on above: Order Comment: PATIE NT IS VERY AGGRESSIVE,PAN SILVA RN ASKED THAT [place] HER. SPOKE TO JAY RN, SHE WILL CALL ONCE PATIENTIS AWAKE AND WE ARE ABLE TO TRY HER Performed By: #### L 500.2500, L100.0100 ####[facility] [address] [place], [address] WBC (Bld) [#/Vol] 7.7 10*3/uL Normal 4.4-11.0 [facility] Comment on above: Order Comment: PATIE NT IS VERY AGGRESSIVE,PAN SILVA RN ASKED THAT [place] HER. SPOKE TO JAY RN, SHE WILL CALL ONCE PATIENTIS AWAKE AND WE ARE ABLE TO TRY HER Performed By: #### L 500.2500, L100.0100 ####[facility] [address] [place], [address] Basic Metabolic Profile (BMP )on 02-17-2025 BUN/CRE 23.8 RATIO High 10-20 [facility] Comment on above: Performed By: #### L 100.0100, L500.2500 ####[facility] [address] [place], [address] Calcium [Mass/Vol] 9.1 mg/dL Normal 7.6-11.0 [facility] Comment on above: Performed By: #### L 100.0100, L500.2500 ####[facility] [address] [place], [address] Chloride [Moles/Vol] 108 mmol/L Normal 98-108 [facility] Comment on above: Performed By: #### L 100.0100, L500.2500 ####[facility] [address] [place], [address] CO2 [Moles/Vol] 21.0 mmol/L Normal 21.0-32.0 [facility] Comment on above: Performed By: #### L 100.0100, L500.2500 ####[facility] [address] [place], [address] Creatinine [Mass/Vol] 0.69 mg/dL Low 0.70-1.20 [facility] Comment on above: Performed By: #### L 100.0100, L500.2500 ####[facility] [address] [place], [address] ECRCL 45.54 ml/min Low 50-250 [facility] Comment on above: Performed By: #### L 100.0100, L500.2500 ####[facility] [address] [place], [address] GAP 11 Normal 5-15 [facility] Comment on above: Performed By: #### L 100.0100, L500.2500 ####[facility] [address] [place], [address] GFR/1.73 sq M.predicted among non-blacks MDRD (S/P/Bld) [Vol rate/Area] 86 mL/min/{1.73_m2} Normal >60 [facility] Comment on above: Result Comment: mL/m in/1.73m2 CKD-EPI Creatinine Equation (2020) Performed By: #### L 100.0100, L500.2500 ####[facility] [address] [place], [address] Glucose [Mass/Vol] 112 mg/dL High 70-99 [facility] Comment on above: Performed By: #### L 100.0100, L500.2500 ####[facility] [address] [place], [address] Potassium [Moles/Vol] 3.7 mmol/L Normal 3.3-5.1 [facility] Comment on above: Performed By: #### L 100.0100, L500.2500 ####[facility] [address] [place], [address] Sodium [Moles/Vol] 141 mmol/L Normal 133-145 [facility] Comment on above: Performed By: #### L 100.0100, L500.2500 ####[facility] [address] [place], [address] Urea nitrogen [Mass/Vol] 16 mg/dL Normal 4-19 [facility] Comment on above: Performed By: #### L 100.0100, L500.2500 ####[facility] [address] [place], [address] CBC W/Diff, Automatedon 09-0 -2024 Absolute Lymph 1.55 X10 3/uL Normal 0.83-4.51 [facility] Comment on above: Performed By: #### L 100.0100, L500.2500 ####[facility] [address] [place], [address] Absolute Neut 4.6 X10 3/uL Normal 2.0-7.7 [facility] Comment on above: Performed By: #### L 100.0100, L500.2500 ####[facility] [address] [place], [address] Basophils/100 WBC (Bld) 0.4 % Normal 0-1 [facility] Comment on above: Performed By: #### L 100.0100, L500.2500 ####[facility] [address] [place], [address] Eosinophils/100 WBC (Bld) 3.1 % Normal 0-5 [facility] Comment on above: Performed By: #### L 100.0100, L500.2500 ####[facility] [address] [place], [address] Erythrocyte distribution width (RBC) [Ratio] 15.9 % High 11.6-14.6 [facility] Comment on above: Performed By: #### L 100.0100, L500.2500 ####[facility] [address] [place], [address] Hematocrit (Bld) [Volume fraction] 35.4 % Low 37-47 [facility] Comment on above: Performed By: #### L 100.0100, L500.2500 ####[facility] [address] [place], [address] Hemoglobin (Bld) [Mass/Vol] 11.3 g/dL Low 12.0-15.0 [facility] Comment on above: Performed By: #### L 100.0100, L500.2500 ####[facility] [address] [place], [address] IG% 0.500 Normal 0.0-0.9 [facility] Comment on above: Result Comment: IG% - Immature Granulocytes (promyelocytes, myelocytes andmetamyelocytes) > 1% indicates that a LEFT SHIFT is Present. Performed By: #### L 100.0100, L500.2500 ####[facility] [address] [place], [address] Lymphocytes/100 WBC (Bld) 21.0 % Normal 19-41 [facility] Comment on above: Performed By: #### L 100.0100, L500.2500 ####[facility] [address] [place], [address] MCH (RBC) [Entitic mass] 28.3 pg Normal 27.0-32.0 [facility] Comment on above: Performed By: #### L 100.0100, L500.2500 ####[facility] [address] [place], [address] MCHC (RBC) [Mass/Vol] 31.9 g/dL Low 32-36 [facility] Comment on above: Performed By: #### L 100.0100, L500.2500 ####[facility] [address] [place], [address] MCV (RBC) [Entitic vol] 88.7 fL Normal 81-99 [facility] Comment on above: Performed By: #### L 100.0100, L500.2500 ####[facility] [address] [place], [address] Monocytes/100 WBC (Bld) 13.3 % High 0-10 [facility] Comment on above: Performed By: #### L 100.0100, L500.2500 ####[facility] [address] [place], [address] Neutrophils/100 WBC (Bld) 61.7 % Normal 47-70 [facility] Comment on above: Performed By: #### L 100.0100, L500.2500 ####[facility] [address] [place], [address] Nucleated RBC (Bld) [#/Vol] 0 10*3/uL Normal 0-5 [facility] Comment on above: Performed By: #### L 100.0100, L500.2500 ####[facility] [address] [place], [address] Platelet mean volume (Bld) [Entitic vol] 9.1 fL Normal 6.2-12.0 [facility] Comment on above: Performed By: #### L 100.0100, L500.2500 ####[facility] [address] [place], [address] Platelets (Bld) [#/Vol] 316 10*3/uL Normal 150-450 [facility] Comment on above: Performed By: #### L 100.0100, L500.2500 ####[facility] [address] [place], [address] RBC (Bld) [#/Vol] 3.99 10*6/uL Low 4.2-5.4 [facility] Comment on above: Performed By: #### L 100.0100, L500.2500 ####[facility] [address] [place], [address] RDW SD 52.5 fl High 35.1-43.9 [facility] Comment on above: Performed By: #### L 100.0100, L500.2500 ####[facility] [address] [place], [address] WBC (Bld) [#/Vol] 7.4 10*3/uL Normal 4.4-11.0 [facility] Comment on above: Performed By: #### L 100.0100, L500.2500 ####[facility] [address] [place], [address] Basic Metabolic Profile (BMP )on 02-16-2025 BUN/CRE 23.8 RATIO High 10-20 [facility] Comment on above: Performed By: #### L 500.2500, L100.0100 ####[facility] [address] [place], [address] Calcium [Mass/Vol] 9.4 mg/dL Normal 7.6-11.0 [facility] Comment on above: Performed By: #### L 500.2500, L100.0100 ####[facility] [address] [place], [address] Chloride [Moles/Vol] 104 mmol/L Normal 98-108 [facility] Comment on above: Performed By: #### L 500.2500, L100.0100 ####[facility] [address] [place], [address] CO2 [Moles/Vol] 22.7 mmol/L Normal 21.0-32.0 [facility] Comment on above: Performed By: #### L 500.2500, L100.0100 ####[facility] [address] [place], [address] Creatinine [Mass/Vol] 0.88 mg/dL Normal 0.70-1.20 [facility] Comment on above: Performed By: #### L 500.2500, L100.0100 ####[facility] [address] [place], [address] ECRCL 41.40 ml/min Low 50-250 [facility] Comment on above: Performed By: #### L 500.2500, L100.0100 ####[facility] [address] [place], [address] GAP 13 Normal 5-15 [facility] Comment on above: Performed By: #### L 500.2500, L100.0100 ####[facility] [address] [place], [address] GFR/1.73 sq M.predicted among non-blacks MDRD (S/P/Bld) [Vol rate/Area] 65 mL/min/{1.73_m2} Normal >60 [facility] Comment on above: Result Comment: mL/m in/1.73m2 CKD-EPI Creatinine Equation (2020) Performed By: #### L 500.2500, L100.0100 ####[facility] [address] [place], [address] Glucose [Mass/Vol] 134 mg/dL High 70-99 [facility] Comment on above: Performed By: #### L 500.2500, L100.0100 ####[facility] [address] [place], [address] Potassium [Moles/Vol] 3.7 mmol/L Normal 3.3-5.1 [facility] Comment on above: Performed By: #### L 500.2500, L100.0100 ####[facility] [address] [place], [address] Sodium [Moles/Vol] 139 mmol/L Normal 133-145 [facility] Comment on above: Performed By: #### L 500.2500, L100.0100 ####[facility] [address] [place], [address] Urea nitrogen [Mass/Vol] 21 mg/dL High 4-19 [facility] Comment on above: Performed By: #### L 500.2500, L100.0100 ####[facility] [address] [place], [address] CBC W/Diff, Automatedon 09-0 -2024 Absolute Lymph 1.16 X10 3/uL Normal 0.83-4.51 [facility] Comment on above: Performed By: #### L 500.2500, L100.0100 ####[facility] [address] [place], [address] Absolute Neut 5.3 X10 3/uL Normal 2.0-7.7 [facility] Comment on above: Performed By: #### L 500.2500, L100.0100 ####[facility] [address] [place], [address] Basophils/100 WBC (Bld) 0.3 % Normal 0-1 [facility] Comment on above: Performed By: #### L 500.2500, L100.0100 ####[facility] [address] [place], [address] Eosinophils/100 WBC (Bld) 2.3 % Normal 0-5 [facility] Comment on above: Performed By: #### L 500.2500, L100.0100 ####[facility] [address] [place], [address] Erythrocyte distribution width (RBC) [Ratio] 16.4 % High 11.6-14.6 [facility] Comment on above: Performed By: #### L 500.2500, L100.0100 ####[facility] [address] [place], [address] Hematocrit (Bld) [Volume fraction] 38.3 % Normal 37-47 [facility] Comment on above: Performed By: #### L 500.2500, L100.0100 ####[facility] [address] [place], [address] Hemoglobin (Bld) [Mass/Vol] 12.0 g/dL Normal 12.0-15.0 [facility] Comment on above: Performed By: #### L 500.2500, L100.0100 ####[facility] [address] [place], [address] IG% 0.600 Normal 0.0-0.9 [facility] Comment on above: Result Comment: IG% - Immature Granulocytes (promyelocytes, myelocytes andmetamyelocytes) > 1% indicates that a LEFT SHIFT is Present. Performed By: #### L 500.2500, L100.0100 ####[facility] [address] [place], [address] Lymphocytes/100 WBC (Bld) 14.9 % Low 19-41 [facility] Comment on above: Performed By: #### L 500.2500, L100.0100 ####[facility] [address] [place], [address] MCH (RBC) [Entitic mass] 28.1 pg Normal 27.0-32.0 [facility] Comment on above: Performed By: #### L 500.2500, L100.0100 ####[facility] [address] [place], [address] MCHC (RBC) [Mass/Vol] 31.3 g/dL Low 32-36 [facility] Comment on above: Performed By: #### L 500.2500, L100.0100 ####[facility] [address] [place], [address] MCV (RBC) [Entitic vol] 89.7 fL Normal 81-99 [facility] Comment on above: Performed By: #### L 500.2500, L100.0100 ####[facility] [address] [place], [address] Monocytes/100 WBC (Bld) 14.1 % High 0-10 [facility] Comment on above: Performed By: #### L 500.2500, L100.0100 ####[facility] [address] [place], [address] Neutrophils/100 WBC (Bld) 67.8 % Normal 47-70 [facility] Comment on above: Performed By: #### L 500.2500, L100.0100 ####[facility] [address] [place], [address] Nucleated RBC (Bld) [#/Vol] 0 10*3/uL Normal 0-5 [facility] Comment on above: Performed By: #### L 500.2500, L100.0100 ####[facility] [address] [place], [address] Platelet mean volume (Bld) [Entitic vol] 8.9 fL Normal 6.2-12.0 [facility] Comment on above: Performed By: #### L 500.2500, L100.0100 ####[facility] [address] [place], [address] Platelets (Bld) [#/Vol] 328 10*3/uL Normal 150-450 [facility] Comment on above: Performed By: #### L 500.2500, L100.0100 ####[facility] [address] [place], [address] RBC (Bld) [#/Vol] 4.27 10*6/uL Normal 4.2-5.4 [facility] Comment on above: Performed By: #### L 500.2500, L100.0100 ####[facility] [address] [place], [address] RDW SD 53.4 fl High 35.1-43.9 [facility] Comment on above: Performed By: #### L 500.2500, L100.0100 ####[facility] [address] [place], [address] WBC (Bld) [#/Vol] 7.8 10*3/uL Normal 4.4-11.0 [facility] Comment on above: Performed By: #### L 500.2500, L100.0100 ####[facility] [address] [place], [address] Basic Metabolic Profile (BMP )on 02-15-2025 BUN/CRE 17.5 RATIO Normal 10-20 [facility] Comment on above: Performed By: #### L 500.2500, L100.0100 ####[facility] [address] [place], [address] Calcium [Mass/Vol] 8.9 mg/dL Normal 7.6-11.0 [facility] Comment on above: Performed By: #### L 500.2500, L100.0100 ####[facility] [address] [place], [address] Chloride [Moles/Vol] 103 mmol/L Normal 98-108 [facility] Comment on above: Performed By: #### L 500.2500, L100.0100 ####[facility] [address] [place], [address] CO2 [Moles/Vol] 21.1 mmol/L Normal 21.0-32.0 [facility] Comment on above: Performed By: #### L 500.2500, L100.0100 ####[facility] [address] [place], [address] Creatinine [Mass/Vol] 0.94 mg/dL Normal 0.70-1.20 [facility] Comment on above: Performed By: #### L 500.2500, L100.0100 ####[facility] [address] [place], [address] ECRCL 38.76 ml/min Low 50-250 [facility] Comment on above: Performed By: #### L 500.2500, L100.0100 ####[facility] [address] [place], [address] GAP 13 Normal 5-15 [facility] Comment on above: Performed By: #### L 500.2500, L100.0100 ####[facility] [address] [place], [address] GFR/1.73 sq M.predicted among non-blacks MDRD (S/P/Bld) [Vol rate/Area] 60 mL/min/{1.73_m2} Normal >60 [facility] Comment on above: Result Comment: mL/m in/1.73m2 CKD-EPI Creatinine Equation (2020) Performed By: #### L 500.2500, L100.0100 ####[facility] [address] [place], [address] Glucose [Mass/Vol] 82 mg/dL Normal 70-99 [facility] Comment on above: Performed By: #### L 500.2500, L100.0100 ####[facility] [address] [place], [address] Potassium [Moles/Vol] 3.6 mmol/L Normal 3.3-5.1 [facility] Comment on above: Performed By: #### L 500.2500, L100.0100 ####[facility] [address] [place], [address] Sodium [Moles/Vol] 137 mmol/L Normal 133-145 [facility] Comment on above: Performed By: #### L 500.2500, L100.0100 ####[facility] [address] [place], [address] Urea nitrogen [Mass/Vol] 17 mg/dL Normal 4-19 [facility] Comment on above: Performed By: #### L 500.2500, L100.0100 ####[facility] [address] [place], [address] CBC W/Diff, Automatedon 09-0 3-2024 Absolute Lymph 1.30 X10 3/uL Normal 0.83-4.51 [facility] Comment on above: Performed By: #### L 500.2500, L100.0100 ####[facility] [address] [place], [address] Absolute Neut 5.0 X10 3/uL Normal 2.0-7.7 [facility] Comment on above: Performed By: #### L 500.2500, L100.0100 ####[facility] [address] [place], [address] Basophils/100 WBC (Bld) 0.4 % Normal 0-1 [facility] Comment on above: Performed By: #### L 500.2500, L100.0100 ####[facility] [address] [place], [address] Eosinophils/100 WBC (Bld) 1.8 % Normal 0-5 [facility] Comment on above: Performed By: #### L 500.2500, L100.0100 ####[facility] [address] [place], [address] Erythrocyte distribution width (RBC) [Ratio] 16.4 % High 11.6-14.6 [facility] Comment on above: Performed By: #### L 500.2500, L100.0100 ####[facility] [address] [place], [address] Hematocrit (Bld) [Volume fraction] 36.3 % Low 37-47 [facility] Comment on above: Performed By: #### L 500.2500, L100.0100 ####[facility] [address] [place], [address] Hemoglobin (Bld) [Mass/Vol] 11.5 g/dL Low 12.0-15.0 [facility] Comment on above: Performed By: #### L 500.2500, L100.0100 ####[facility] [address] [place], [address] IG% 0.500 Normal 0.0-0.9 [facility] Comment on above: Result Comment: IG% - Immature Granulocytes (promyelocytes, myelocytes andmetamyelocytes) > 1% indicates that a LEFT SHIFT is Present. Performed By: #### L 500.2500, L100.0100 ####[facility] [address] [place], [address] Lymphocytes/100 WBC (Bld) 16.8 % Low 19-41 [facility] Comment on above: Performed By: #### L 500.2500, L100.0100 ####[facility] [address] [place], [address] MCH (RBC) [Entitic mass] 28.2 pg Normal 27.0-32.0 [facility] Comment on above: Performed By: #### L 500.2500, L100.0100 ####[facility] [address] [place], [address] MCHC (RBC) [Mass/Vol] 31.7 g/dL Low 32-36 [facility] Comment on above: Performed By: #### L 500.2500, L100.0100 ####[facility] [address] [place], [address] MCV (RBC) [Entitic vol] 89.0 fL Normal 81-99 [facility] Comment on above: Performed By: #### L 500.2500, L100.0100 ####[facility] [address] [place], [address] Monocytes/100 WBC (Bld) 16.6 % High 0-10 [facility] Comment on above: Performed By: #### L 500.2500, L100.0100 ####[facility] [address] [place], [address] Neutrophils/100 WBC (Bld) 63.9 % Normal 47-70 [facility] Comment on above: Performed By: #### L 500.2500, L100.0100 ####[facility] [address] [place], [address] Nucleated RBC (Bld) [#/Vol] 0 10*3/uL Normal 0-5 [facility] Comment on above: Performed By: #### L 500.2500, L100.0100 ####[facility] [address] [place], [address] Platelet mean volume (Bld) [Entitic vol] 8.6 fL Normal 6.2-12.0 [facility] Comment on above: Performed By: #### L 500.2500, L100.0100 ####[facility] [address] [place], [address] Platelets (Bld) [#/Vol] 279 10*3/uL Normal 150-450 [facility] Comment on above: Performed By: #### L 500.2500, L100.0100 ####[facility] [address] [place], [address] RBC (Bld) [#/Vol] 4.08 10*6/uL Low 4.2-5.4 [facility] Comment on above: Performed By: #### L 500.2500, L100.0100 ####[facility] [address] [place], [address] RDW SD 53.1 fl High 35.1-43.9 [facility] Comment on above: Performed By: #### L 500.2500, L100.0100 ####[facility] [address] [place], [address] WBC (Bld) [#/Vol] 7.8 10*3/uL Normal 4.4-11.0 [facility] Comment on above: Performed By: #### L 500.2500, L100.0100 ####[facility] [address] [place], [address] Electrocardiogram reportOrde red By: Yunior Desai on 02-15-2025 EKG study [facility] Work Phone: 12 Lead EKGon 02-14-2025 12 Lead EKG Normal [facility] Absolute lymphocyte countOrd ered By: Arya Gannon on 02-14-2025 Lymphocytes Auto (Unsp spec) [#/Vol] 1.18 10*3/uL 0.83-4.51 [facility] Activated partial thrombopla stin time (aPTT) in platelet poor plasma by coagulation aOrdered By: Arya Gannon on 02-14-2025 aPTT Coag (PPP) [Time] 29.6 s 24.1-36.2 [facility] Anion gap in Serum or Plasma Ordered By: Arya Gannon on 02-14-2025 Anion gap [Moles/Vol] 12 mmol/L 5-15 [facility] Automated lymphocyte count a s percentage of total leukocytesOrdered By: Aryamisha Gannon on 02-14-2025 Lymphocytes/100 WBC Auto (Unsp spec) 11.8 % Low 19-41 [facility] BUN/creatinine ratioOrdered By: Mary[place] MurrayGopiLizeth on 02-14-2025 Urea nitrogen/Creatinine [Mass ratio] 19.4 mg/mg 10-20 [facility] Basophil percentageOrdered B y: Arya Teressa on 02-14-2025 Basophils/100 WBC (Bld) 0.4 % 0-1 [facility] Bilirubin Test strip Ql (U)O rdered By: Aryamisha Gannon on 02-14-2025 Bilirubin Ql (U) Negative Negative [facility] Bilirubin, totalOrdered By: [facility] on 02-14-2025 Bilirubin [Mass/Vol] 0.56 mg/dL 0.00-1.30 [facility] CBC W/Diff, Automatedon Absolute Lymph 1.18 X10 3/uL Normal 0.83-4.51 [facility] Comment on above: Performed By: #### L 503.6005, L300.4310, L100.0100, L300.3900, L500.4050, L501.2450 ####[facility] [address] [place], [place], [address] Absolute Neut 7.4 X10 3/uL Normal 2.0-7.7 [facility] Comment on above: Performed By: #### L 503.6005, L300.4310, L100.0100, L300.3900, L500.4050, L501.2450 ####[facility] [address] [place], [address] Basophils/100 WBC (Bld) 0.4 % Normal 0-1 [facility] Comment on above: Performed By: #### L 503.6005, L300.4310, L100.0100, L300.3900, L500.4050, L501.2450 ####[facility] [address] [place], [address] Eosinophils/100 WBC (Bld) 0.8 % Normal 0-5 [facility] Comment on above: Performed By: #### L 503.6005, L300.4310, L100.0100, L300.3900, L500.4050, L501.2450 ####[facility] [address] [place], [address] Erythrocyte distribution width (RBC) [Ratio] 16.3 % High 11.6-14.6 [facility] Comment on above: Performed By: #### L 503.6005, L300.4310, L100.0100, L300.3900, L500.4050, L501.2450 ####[facility] [address] [place], [address] Hematocrit (Bld) [Volume fraction] 35.8 % Low 37-47 [facility] Comment on above: Performed By: #### L 503.6005, L300.4310, L100.0100, L300.3900, L500.4050, L501.2450 ####[facility] [address] [place], [address] Hemoglobin (Bld) [Mass/Vol] 11.5 g/dL Low 12.0-15.0 [facility] Comment on above: Performed By: #### L 503.6005, L300.4310, L100.0100, L300.3900, L500.4050, L501.2450 ####[facility] [address] [place], [address] IG% 0.700 Normal 0.0-0.9 [facility] Comment on above: Result Comment: IG% - Immature Granulocytes (promyelocytes, myelocytes andmetamyelocytes) > 1% indicates that a LEFT SHIFT is Present. Performed By: #### L 503.6005, L300.4310, L100.0100, L300.3900, L500.4050, L501.2450 ####[facility] [address] [place], [address] Lymphocytes/100 WBC (Bld) 11.8 % Low 19-41 [facility] Comment on above: Performed By: #### L 503.6005, L300.4310, L100.0100, L300.3900, L500.4050, L501.2450 ####[facility] [address] [place], [address] MCH (RBC) [Entitic mass] 28.5 pg Normal 27.0-32.0 [facility] Comment on above: Performed By: #### L 503.6005, L300.4310, L100.0100, L300.3900, L500.4050, L501.2450 ####[facility] [address] [place], [address] MCHC (RBC) [Mass/Vol] 32.1 g/dL Normal 32-36 [facility] Comment on above: Performed By: #### L 503.6005, L300.4310, L100.0100, L300.3900, L500.4050, L501.2450 ####[facility] [address] [place], [address] MCV (RBC) [Entitic vol] 88.6 fL Normal 81-99 [facility] Comment on above: Performed By: #### L 503.6005, L300.4310, L100.0100, L300.3900, L500.4050, L501.2450 ####[facility] [address] [place], [address] Monocytes/100 WBC (Bld) 12.2 % High 0-10 [facility] Comment on above: Performed By: #### L 503.6005, L300.4310, L100.0100, L300.3900, L500.4050, L501.2450 ####[facility] [address] [place], [address] Neutrophils/100 WBC (Bld) 74.1 % High 47-70 [facility] Comment on above: Performed By: #### L 503.6005, L300.4310, L100.0100, L300.3900, L500.4050, L501.2450 ####[facility] [address] [place], [address] Nucleated RBC (Bld) [#/Vol] 0 10*3/uL Normal 0-5 [facility] Comment on above: Performed By: #### L 503.6005, L300.4310, L100.0100, L300.3900, L500.4050, L501.2450 ####[facility] [address] [place], [address] Platelet mean volume (Bld) [Entitic vol] 8.5 fL Normal 6.2-12.0 [facility] Comment on above: Performed By: #### L 503.6005, L300.4310, L100.0100, L300.3900, L500.4050, L501.2450 ####[facility] [address] [place], [address] Platelets (Bld) [#/Vol] 328 10*3/uL Normal 150-450 [facility] Comment on above: Performed By: #### L 503.6005, L300.4310, L100.0100, L300.3900, L500.4050, L501.2450 ####[facility] [address] [place], [address] RBC (Bld) [#/Vol] 4.04 10*6/uL Low 4.2-5.4 [facility] Comment on above: Performed By: #### L 503.6005, L300.4310, L100.0100, L300.3900, L500.4050, L501.2450 ####[facility] [address] [place], [address] RDW SD 52.9 fl High 35.1-43.9 [facility] Comment on above: Performed By: #### L 503.6005, L300.4310, L100.0100, L300.3900, L500.4050, L501.2450 ####[facility] [address] [place], [address] WBC (Bld) [#/Vol] 10.0 10*3/uL Normal 4.4-11.0 [facility] Comment on above: Performed By: #### L 503.6005, L300.4310, L100.0100, L300.3900, L500.4050, L501.2450 ####[facility] [address] [place], [address] Carbon dioxide, total [Moles /volume] in Central venous bloodOrdered By: Arya Gannon on 02-14-2025 CO2 [Moles/Vol] 23.7 mmol/L 21.0-32.0 [facility] Chest PA and Lateralon 02-14 Chest PA and Lateral Normal [facility] Chloride assayOrdered By: Martín Gannon on 02-14-2025 Chloride [Moles/Vol] 100 mmol/L 98-108 [facility] Comprehensive Metabolic Prof ilon 02-14-2025 Albumin [Mass/Vol] 3.7 g/dL Normal 3.4-4.8 [facility] Comment on above: Performed By: #### L 503.6005, L300.4310, L100.0100, L300.3900, L500.4050, L501.2450 ####[facility] [address] [place], [address] Albumin/Globulin [Mass ratio] 1.2 {ratio} Normal 0.9-2.4 [facility] Comment on above: Performed By: #### L 503.6005, L300.4310, L100.0100, L300.3900, L500.4050, L501.2450 ####[facility] [address] [place], [address] ALK PHOS 150 U/L High 35-104 [facility] Comment on above: Performed By: #### L 503.6005, L300.4310, L100.0100, L300.3900, L500.4050, L501.2450 ####[facility] [address] [place], [address] ALT [Catalytic activity/Vol] 14 U/L Normal <=34 [facility] Comment on above: Performed By: #### L 503.6005, L300.4310, L100.0100, L300.3900, L500.4050, L501.2450 ####[facility] [address] [place], [address] AST [Catalytic activity/Vol] 25 U/L Normal <=31 [facility] Comment on above: Performed By: #### L 503.6005, L300.4310, L100.0100, L300.3900, L500.4050, L501.2450 ####[facility] [address] [place], [address] Bilirubin [Mass/Vol] 0.56 mg/dL Normal 0.00-1.30 [facility] Comment on above: Performed By: #### L 503.6005, L300.4310, L100.0100, L300.3900, L500.4050, L501.2450 ####[facility] [address] [place], [address] BUN/CRE 19.4 RATIO Normal 10-20 [facility] Comment on above: Performed By: #### L 503.6005, L300.4310, L100.0100, L300.3900, L500.4050, L501.2450 ####[facility] [address] [place], [address] Calcium [Mass/Vol] 8.9 mg/dL Normal 7.6-11.0 [facility] Comment on above: Performed By: #### L 503.6005, L300.4310, L100.0100, L300.3900, L500.4050, L501.2450 ####[facility] [address] [place], [address] Chloride [Moles/Vol] 100 mmol/L Normal 98-108 [facility] Comment on above: Performed By: #### L 503.6005, L300.4310, L100.0100, L300.3900, L500.4050, L501.2450 ####[facility] [address] [place], [address] CO2 [Moles/Vol] 23.7 mmol/L Normal 21.0-32.0 [facility] Comment on above: Performed By: #### L 503.6005, L300.4310, L100.0100, L300.3900, L500.4050, L501.2450 ####[facility] [address] [place], [address] Creatinine [Mass/Vol] 0.94 mg/dL Normal 0.70-1.20 [facility] Comment on above: Performed By: #### L 503.6005, L300.4310, L100.0100, L300.3900, L500.4050, L501.2450 ####[facility] [address] [place], [address] ECRCL 40.09 ml/min Low 50-250 [facility] Comment on above: Performed By: #### L 503.6005, L300.4310, L100.0100, L300.3900, L500.4050, L501.2450 ####[facility] [address] [place], [address] GAP 12 Normal 5-15 [facility] Comment on above: Performed By: #### L 503.6005, L300.4310, L100.0100, L300.3900, L500.4050, L501.2450 ####[facility] [address] [place], [address] GFR/1.73 sq M.predicted among non-blacks MDRD (S/P/Bld) [Vol rate/Area] 60 mL/min/{1.73_m2} Normal >60 [facility] Comment on above: Result Comment: mL/m in/1.73m2 CKD-EPI Creatinine Equation (2020) Performed By: #### L 503.6005, L300.4310, L100.0100, L300.3900, L500.4050, L501.2450 ####[facility] [address] [place], [address] Globulin (S) [Mass/Vol] 3.1 g/dL Normal 2.2-4.2 [facility] Comment on above: Performed By: #### L 503.6005, L300.4310, L100.0100, L300.3900, L500.4050, L501.2450 ####[facility] [address] [place], [address] Glucose [Mass/Vol] 92 mg/dL Normal 70-99 [facility] Comment on above: Performed By: #### L 503.6005, L300.4310, L100.0100, L300.3900, L500.4050, L501.2450 ####[facility] [address] [place], [address] Potassium [Moles/Vol] 3.7 mmol/L Normal 3.3-5.1 [facility] Comment on above: Performed By: #### L 503.6005, L300.4310, L100.0100, L300.3900, L500.4050, L501.2450 ####[facility] [address] [place], [address] Sodium [Moles/Vol] 135 mmol/L Normal 133-145 [facility] Comment on above: Performed By: #### L 503.6005, L300.4310, L100.0100, L300.3900, L500.4050, L501.2450 ####[facility] [address] [place], [address] T PROT 6.9 g/dL Normal 5.9-8.4 [facility] Comment on above: Performed By: #### L 503.6005, L300.4310, L100.0100, L300.3900, L500.4050, L501.2450 ####[facility] [address] [place], [address] Urea nitrogen [Mass/Vol] 18 mg/dL Normal 4-19 [facility] Comment on above: Performed By: #### L 503.6005, L300.4310, L100.0100, L300.3900, L500.4050, L501.2450 ####[facility] [address] [place], [address] Emergency Department Summary on 02-14-2025 Emergency Department Summary Normal [facility] Eosinophil percentageOrdered By: Arya Teressa on 02-14-2025 Eosinophils/100 WBC (Bld) 0.8 % 0-5 [facility] Erythrocyte distribution wid th ratioOrdered By: [facility] Hospitalgett on 02-14-2025 Erythrocyte distribution width (RBC) [Ratio] 16.3 % High 11.6-14.6 [facility] Erythrocyte distribution wid th standard deviationOrdered By: [facility] HospitalGopi Lizeth on 02-14-2025 Erythrocyte distribution width (RBC) [Ratio] 52.9 fl High 35.1-43.9 [facility] Glomerular filtration rate ( GFR) estimation/1.73 sq m using serum, plasma, or whole bOrdered By: [facility] HospitalKarla on 02-14-2025 GFR/1.73 sq M.predicted among non-blacks MDRD (S/P/Bld) [Vol rate/Area] 60 mL/min/{1.73_m2} >60 [facility] H AND P Exam - Hospitaliston 02-14-2025 H&P Exam - Hospitalist Normal [facility] Hematocrit Auto (Bld) [Volum e fraction]Ordered By: Arya Gannon on 02-14-2025 Hematocrit (Bld) [Volume fraction] 35.8 % Low 37-47 [facility] Hemoglobin measurementOrdere d By: Arya Teressa on 02-14-2025 Hemoglobin (Bld) [Mass/Vol] 11.5 g/dL Low 12.0-15.0 [facility] Immature granulocytes/100 WB C Auto (Bld)Ordered By: Arya Gannon on 02-14-2025 Immature granulocytes/100 WBC (Bld) 0.700 % 0.0-0.9 [facility] Influenza virus A and B and SARS-CoV-2 (COVID-19) and Respiratory syncytial virus RNAOrdered By: Arya UreñaKarla on 02-14-2025 SARS-CoV-2 (COVID-19) RNA ZADI+probe Ql (Unsp spec) [facility] Ketones Test strip Ql (U)Ord ered By: Arya UreñarossLizeth on 02-14-2025 Ketones Ql (U) 5 mg/dl High Negative [facility] L501.4021on 02-14-2025 Trop T High Sen 35 ng/L High <=14 [facility] Comment on above: Performed By: #### L 501.4021 ####[facility] [address] [place], [place], [address] Lactic Acidon 02-14-2025 Lactate [Moles/Vol] 1.3 mmol/L Normal 0.0-2.0 [facility] Comment on above: Order Comment: Y Performed By: #### L 503.6005, L300.4310, L100.0100, L300.3900, L500.4050, L501.2450 ####[facility] [address] [place], [place], [address] Legionella Antigen Urineon 0 02-14-2025 LEGU Normal [facility] Comment on above: Performed By: #### M 300.4500, M300.4600 ####[facility] [address] [place], [address] Lipaseon 02-14-2025 Lipase [Catalytic activity/Vol] 40 U/L Normal 13-75 [facility] Comment on above: Result Comment: Plea note:LIPASE revised reference range effective 22.New Lipase methodology. Expected to produce lower valuesthan the previous assay method.NEW Reference Range: 13 - 75 U/L Performed By: #### L 503.6005, L300.4310, L100.0100, L300.3900, L500.4050, L501.2450 ####[facility] [address] [place], [place], [id number] M100.678on 02-14-2025 M100.678 Pending SARS-CoV-2 (COVID 19) Negative INFLUENZA A Negative INFLUENZA B Negative RSV PCR Negative Normal [facility] Comment on above: Performed By: #### M 100.678, L400.0001 ####[facility] [address] [place], [place], [id number] MCV (mean corpuscular volume ) determinationOrdered By: [facility] HospitalKarla on 02-14-2025 MCV (RBC) [Entitic vol] 88.6 fL 81-99 [facility] Mean corpuscular hemoglobin (MCH) determinationOrdered By: [facility] Hospitalmaria guadalupeGopiLizeth on 02-14-2025 MCH (RBC) [Entitic mass] 28.5 pg 27.0-32.0 [facility] Monocyte percentageOrdered B y: Arya Gannon on 02-14-2025 Monocytes/100 WBC (Bld) 12.2 % High 0-10 [facility] Mucus LM Ql (Urine sed)Order ed By: [facility] HospitalGopiLizeth on 02-14-2025 Mucus Ql (Urine sed) 0 SEEN /hpf [facility] Neutrophil percentageOrdered By: [facility] HospitalGopiLizeth on 02-14-2025 Neutrophils/100 WBC (Bld) 74.1 % High 47-70 [facility] Nitrite Test strip Ql (U)Ord ered By: [facility] HospitalrossLizeth on 02-14-2025 Nitrite Ql (U) Negative Negative [facility] No Panel InformationOrdered By: [facility] HospitalGopiLizeth on 02-14-2025 25 U/L <32 [facility] Partial Thromboplast Timeon 02-14-2025 aPTT Coag (Bld) [Time] 29.6 s Normal 24.1-36.2 [facility] Comment on above: Performed By: #### L 503.6005, L300.4310, L100.0100, L300.3900, L500.4050, L501.2450 ####[facility] [address] [place], [place], [address] Platelet countOrdered By: Martín Gannon on 02-14-2025 Platelets (Bld) [#/Vol] 328 10*3/uL 150-450 [facility] Potassium measurement (mass/ volume)Ordered By: Arya Gannon on 02-14-2025 Potassium (Unsp spec) [Mass/Vol] 3.7 mmol/L 3.3-5.1 [facility] Protein Test strip Ql (U)Ord ered By: Arya Gannon on 02-14-2025 Protein Ql (U) Negative Negative [facility] Prothrombin Time w/INRon INR Coag (PPP) [Relative time] 0.9 {INR} Normal [facility] Comment on above: Performed By: #### L 503.6005, L300.4310, L100.0100, L300.3900, L500.4050, L501.2450 ####[facility] [address] [place], [address] PT Coag (PPP) [Time] 12.7 s Normal 11.7-14.9 [facility] Comment on above: Performed By: #### L 503.6005, L300.4310, L100.0100, L300.3900, L500.4050, L501.2450 ####[facility] [address] [place], [address] Prothrombin timeOrdered By: Arya Gannon on 02-14-2025 PT Coag (PPP) [Time] 12.7 s 11.7-14.9 [facility] RBC Auto (Bld) [#/Vol]Ordere d By: Arya Gannon on 02-14-2025 RBC (Bld) [#/Vol] 4.04 10*6/uL Low 4.2-5.4 [facility] Serum creatinine measurement (mass/volume)Ordered By: Arya Gannon on 02-14-2025 Creatinine [Mass/Vol] 0.94 mg/dL 0.70-1.20 [facility] Serum globulin measurementOr dered By: Arya Gannon on 02-14-2025 Globulin (S) [Mass/Vol] 3.1 g/dL 2.2-4.2 [facility] Serum glucose measurement (m ass/volume)Ordered By: Arya Gannon on 02-14-2025 Glucose [Mass/Vol] 92 mg/dL 70-99 [facility] Serum or plasma alanine carpio otransferase (ALT) measurementOrdered By: Arya Gannon on 02-14-2025 ALT [Catalytic activity/Vol] 14 U/L <35 [facility] Serum or plasma albumin candice urement (mass/volume)Ordered By: Arya Stanley on 02-14-2025 Albumin [Mass/Vol] 3.7 g/dL 3.4-4.8 [facility] Serum or plasma albumin/glob ulin mass ratioOrdered By: Arya Gannon on 02-14-2025 Albumin/Globulin [Mass ratio] 1.2 {ratio} 0.9-2.4 [facility] Serum or plasma alkaline anthony sphatase measurementOrdered By: Arya Gannon on 02-14-2025 ALP [Catalytic activity/Vol] 150 U/L High 35-104 [facility] Serum or plasma calcium candice urement (mass/volume)Ordered By: Arya Stanley on 02-14-2025 Calcium [Mass/Vol] 8.9 mg/dL 7.6-11.0 [facility] Serum or plasma urea nitroge n measurement (mass/volume)Ordered By: Arya Gannon on 02-14-2025 Urea nitrogen [Mass/Vol] 18 mg/dL 4-19 [facility] Sodium levelOrdered By: Luis Angel Gannon on 02-14-2025 Sodium [Moles/Vol] 135 mmol/L 133-145 [facility] Squamous epithelial cells de tection in urine sediment by light microscopyOrdered By: Arya Gannon on 02-14-2025 Epithelial cells.squamous LM Ql (Urine sed) 0 SEEN /hpf 5-10 [facility] Strep pneumoniae Antig(UR,CS F)on 02-14-2025 STPAG Normal [facility] Comment on above: Performed By: #### M 300.4500, M300.4600 ####[facility] [address] [place], [address] Total proteinOrdered By: Ritchie TangLizeth on 02-14-2025 Protein [Mass/Vol] 6.9 g/dL 5.9-8.4 [facility] Troponin T HS 2 HRon 025 Trop T High Sen 32 ng/L High <=14 [facility] Comment on above: Performed By: #### L 499.0042 ####[facility] [address] [place], [address] Troponin T.cardiac [Mass/vol ume] in Serum or Plasma by High sensitivity methodOrdered By: Arya TangLizeth on 02-14-2025 Troponin T.cardiac High sensitivity method [Mass/Vol] 32 ng/L High <14 [facility] Troponin T.cardiac High sensitivity method [Mass/Vol] 35 ng/L High <14 [facility] Urinalysis, Completeon 02-14 WBC 0-5 SEEN Normal 0-5 [facility] Comment on above: Order Comment: CLEAN CATCH Performed By: #### M 100.678, L400.0001 ####[facility] [address] [place], [address] BACTERIA 0 SEEN Normal None Seen [facility] Comment on above: Order Comment: CLEAN CATCH Performed By: #### M 100.678, L400.0001 ####[facility] [address] [place], [address] EPI,SQUAMOUS 0 SEEN Normal 5-10 [facility] Comment on above: Order Comment: CLEAN CATCH Performed By: #### M 100.678, L400.0001 ####[facility] [address] [place], [address] Mucus Ql (Urine sed) 0 SEEN Normal [facility] Comment on above: Order Comment: CLEAN CATCH Performed By: #### M 100.678, L400.0001 ####[facility] [address] [place], [address] RBC 0 SEEN Normal 0-5 [facility] Comment on above: Order Comment: CLEAN CATCH Performed By: #### M 100.678, L400.0001 ####[facility] [address] [place], [address] Urine Legionella pneumophila antigen detectionOrdered By: Liudmila Morin on 02-14-2025 L. pneumophila Ag Ql (U) [facility] Urine clarityOrdered By: Ritchie Gannon on 02-14-2025 Clarity (U) Clear Clear [facility] Urine color determinationOrd ered By: Arya Gannon on 02-14-2025 Color (U) Yellow Yellow [facility] Urine glucose detectionOrder ed By: Arya Gannon on 02-14-2025 Glucose Ql (U) Normal mg/dl Normal [facility] Urine leukocyte esterase det ection by dipstickOrdered By: Arya Gannon on 02-14-2025 Leukocyte esterase Test strip Ql (U) 25 /ul High Negative [facility] Urine pHOrdered By: Arya Acosta on 02-14-2025 pH (U) 6.0 [pH] 5.0 - 8.0 [facility] Urine sediment bacteria coun t by microscopy (number/high power field)Ordered By: Arya Gannon on 02-14-2025 Bacteria LM.HPF (Urine sed) [#/Area] 0 /[HPF] None Seen [facility] Urine specific gravity measu rementOrdered By: Arya Gannon on 02-14-2025 Specific gravity (U) [Rel density] 1.015 1.002-1.03 0 [facility] Urine urobilinogen measureme ntOrdered By: Arya Gannon on 02-14-2025 Urobilinogen Ql (U) Normal mg/dl Normal [facility] White blood cell (WBC) count Ordered By: Arya Gannon on 02-14-2025 WBC (Bld) [#/Vol] 10.0 10*3/uL 4.4-11.0 [facility] White blood cell countOrdere d By: Arya Gannon on 02-14-2025 White blood cell count 0-5 SEEN /hpf 0-5 [facility] OPERATIVE PROCEDURESon 02-02 OPERATIVE PROCEDURES [facility] OPERATIVE REPORT NAME ACCOUNT SEX AGE ADMIT DISCHARGE PT MED. RECORD# NUMBER DATE DATE TYPE SAPNA BULLARD [id number] F 85 01/20/25 01/20/25 2 [id number] ROOM: [facility] DATE OF : 1940 DICTATING PHYSICIAN: Macros White DATE OF PROCEDURE: January 20, 2025 SURGEON: Marcos White DO YARN DRY ROOM WORKER: None. ANESTHESIOLOGIST: ANESTHETIC: Local. PRE-PROCEDURE DIAGNOSIS: Lumbosacral [...] Marcos White DO 01/20/25 12:08 JOB #: [id number] Transcribed By: tim 01/20/25 13:35 Electronically signed by: E-SIGN: MARCOS WHITE 02/02/25 07:18 Page 2 of 2 SAPNA BULLARD Operative Report Normal [facility] Absolute lymphocyte countOrd ered By: Genevieve Wu on 01-30-2025 Lymphocytes Auto (Unsp spec) [#/Vol] 1.91 10*3/uL 0.83-4.51 [facility] Anion gap in Serum or Plasma Ordered By: Genevieve Wu on 01-30-2025 Anion gap [Moles/Vol] 11 mmol/L 5-15 [facility] Automated lymphocyte count a s percentage of total leukocytesOrdered By: Genevieve Wu on 01-30-2025 Lymphocytes/100 WBC Auto (Unsp spec) 20.1 % 19-41 [facility] BUN/creatinine ratioOrdered By: Genevieve Wu on 01-30-2025 Urea nitrogen/Creatinine [Mass ratio] 21.1 mg/mg High 10-20 [facility] Basophil percentageOrdered B y: Genevieve Wu on 01-30-2025 Basophils/100 WBC (Bld) 0.2 % 0-1 [facility] Carbon dioxide, total [Moles /volume] in Central venous bloodOrdered By: Genevieve Wu on 01-30-2025 CO2 [Moles/Vol] 25.1 mmol/L 21.0-32.0 [facility] Chloride assayOrdered By: Abe Wu on 01-30-2025 Chloride [Moles/Vol] 106 mmol/L 98-108 [facility] Eosinophil percentageOrdered By: Genevieve Wu on 01-30-2025 Eosinophils/100 WBC (Bld) 1.9 % 0-5 [facility] Erythrocyte distribution wid th ratioOrdered By: Abemihirkarleysharon Blackjuanitadrew on 01-30-2025 Erythrocyte distribution width (RBC) [Ratio] 16.2 % High 11.6-14.6 [facility] Erythrocyte distribution wid th standard deviationOrdered By: Abehaseeb Blackjuanitadrew on 01-30-2025 Erythrocyte distribution width (RBC) [Ratio] 53.1 fl High 35.1-43.9 [facility] Glomerular filtration rate ( GFR) estimation/1.73 sq m using serum, plasma, or whole bOrdered By: Genevieve Blackjuanitadrew on 01-30-2025 GFR/1.73 sq M.predicted among non-blacks MDRD (S/P/Bld) [Vol rate/Area] 63 mL/min/{1.73_m2} >60 [facility] Hematocrit Auto (Bld) [Volum e fraction]Ordered By: Gerardosmyrnasharon Wu on 01-30-2025 Hematocrit (Bld) [Volume fraction] 34.7 % Low 37-47 [facility] Hemoglobin measurementOrdere d By: Gerardokarleysharon Blackjuanitadrew on 01-30-2025 Hemoglobin (Bld) [Mass/Vol] 10.5 g/dL Low 12.0-15.0 [facility] Immature granulocytes/100 WB C Auto (Bld)Ordered By: Genevieve Wu on 01-30-2025 Immature granulocytes/100 WBC (Bld) 1.300 % High 0.0-0.9 [facility] MCV (mean corpuscular volume ) determinationOrdered By: Genevieve Wu on 01-30-2025 MCV (RBC) [Entitic vol] 91.3 fL 81-99 [facility] Mean corpuscular hemoglobin (MCH) determinationOrdered By: mihirsmyrnasharon Wu on 01-30-2025 MCH (RBC) [Entitic mass] 27.6 pg 27.0-32.0 [facility] Monocyte percentageOrdered B y: Genevieve Wu on 01-30-2025 Monocytes/100 WBC (Bld) 10.3 % High 0-10 [facility] Neutrophil percentageOrdered By: Genevieve Blackjuanitadrew on 01-30-2025 Neutrophils/100 WBC (Bld) 66.2 % 47-70 [facility] Platelet countOrdered By: Abe haseeb Wu on 01-30-2025 Platelets (Bld) [#/Vol] 331 10*3/uL 150-450 [facility] Potassium measurement (mass/ volume)Ordered By: Genevieve Wu on 01-30-2025 Potassium (Unsp spec) [Mass/Vol] 4.2 mmol/L 3.3-5.1 [facility] RBC Auto (Bld) [#/Vol]Ordere d By: Genevieve Waynechey on 01-30-2025 RBC (Bld) [#/Vol] 3.80 10*6/uL Low 4.2-5.4 [facility] Serum creatinine measurement (mass/volume)Ordered By: Genevieve Waynehcey on 01-30-2025 Creatinine [Mass/Vol] 0.90 mg/dL 0.70-1.20 [facility] Serum glucose measurement (m ass/volume)Ordered By: Genevieve Waynejuanitadrew on 01-30-2025 Glucose [Mass/Vol] 128 mg/dL High 70-99 [facility] Serum or plasma calcium candice urement (mass/volume)Ordered By: Genevieve Waynechey on 01-30-2025 Calcium [Mass/Vol] 9.1 mg/dL 7.6-11.0 [facility] Serum or plasma urea nitroge n measurement (mass/volume)Ordered By: Genevieve Waynejuanitadrew on 01-30-2025 Urea nitrogen [Mass/Vol] 19 mg/dL 4-19 [facility] Sodium levelOrdered By: Gerardo Wu on 01-30-2025 Sodium [Moles/Vol] 142 mmol/L 133-145 [facility] White blood cell (WBC) count Ordered By: Genevieve Waynechey on 01-30-2025 WBC (Bld) [#/Vol] 9.5 10*3/uL 4.4-11.0 [facility] C-ARM USAGE 1 HOURon C-ARM USAGE 1 HOUR [place] [address] Patient: SAPNA BULLARD Phone#: : [phone] Age: 85 Gender: F Pt. Type: Out Account: [id number] Location: [facility] [address] Ordering: MARCOS WHITE Exam Date: 01/20/2025/12:02 Family Phys: NICIC LEMUS Charge Code: 775294 Physician: [place] Order #: [id number] Dose#: 1.85 mGy PROCEDURE: C-ARM USEAGE 1 HR COMPARISON: [facility], , C-ARM USEAGE 1 HR, 08/11/2024, [...] MD on 01/20/2025 at 13:05 Normal [facility] Absolute lymphocyte countOrd ered By: Genevieve Wu on 01-02-2025 Lymphocytes Auto (Unsp spec) [#/Vol] 1.82 10*3/uL 0.83-4.51 [facility] [facility] Absolute neutrophil countOrd ered By: Genevieve Wu on 01-02-2025 Neutrophils (Bld) [#/Vol] 6.3 10*3/uL 2.0-7.7 [facility] Anion gap in Serum or Plasma Ordered By: Genevieve Wu on 01-02-2025 Anion gap [Moles/Vol] 16 mmol/L High 5-15 [facility] Automated lymphocyte count a s percentage of total leukocytesOrdered By: Genevieve Wu on 01-02-2025 Lymphocytes/100 WBC Auto (Unsp spec) 19.0 % 19-41 [facility] BUN/creatinine ratioOrdered By: Genevieve Wu on 01-02-2025 Urea nitrogen/Creatinine [Mass ratio] 18.7 mg/mg 10-20 [facility] Basophil percentageOrdered B y: Genevieve Wu on 01-02-2025 Basophils/100 WBC (Bld) 0.5 % 0-1 [facility] Bilirubin directOrdered By: Genevieve Wu on 01-02-2025 Bilirubin.direct [Mass/Vol] mg/dL 0.00-0.30 [facility] Bilirubin, totalOrdered By: Genevieve Wu on 01-02-2025 Bilirubin [Mass/Vol] 0.23 mg/dL 0.00-1.30 [facility] Calculated very low density lipoprotein (VLDL) cholesterol measurementOrdered By: Genevieve Wu on 01-02-2025 Calculated very low density lipoprotein (VLDL) cholesterol measurement 38 mg/dL 5-40 [facility] Carbon dioxide, total [Moles /volume] in Central venous bloodOrdered By: Genevieve Wu on 01-02-2025 CO2 [Moles/Vol] 21.7 mmol/L 21.0-32.0 [facility] Chloride assayOrdered By: Abe Wu on 01-02-2025 Chloride [Moles/Vol] 101 mmol/L 98-108 [facility] Eosinophil percentageOrdered By: Genevieve Wu on 01-02-2025 Eosinophils/100 WBC (Bld) 1.6 % 0-5 [facility] Erythrocyte distribution wid th ratioOrdered By: Genevieve Wu on 01-02-2025 Erythrocyte distribution width (RBC) [Ratio] 15.1 % High 11.6-14.6 [facility] Erythrocyte distribution wid th standard deviationOrdered By: Genevieve Wu on 01-02-2025 Erythrocyte distribution width (RBC) [Ratio] 49.0 fl High 35.1-43.9 [facility] Glomerular filtration rate ( GFR) estimation/1.73 sq m using serum, plasma, or whole bOrdered By: Genevieve Wu on 01-02-2025 GFR/1.73 sq M.predicted among non-blacks MDRD (S/P/Bld) [Vol rate/Area] 62 mL/min/{1.73_m2} >60 [facility] Comment on above: mL/min/1.73m2 CKD-EP I Creatinine Equation (2020) Hematocrit Auto (Bld) [Volum e fraction]Ordered By: Genevieve Wu on 01-02-2025 Hematocrit (Bld) [Volume fraction] 39.4 % 37-47 [facility] Hemoglobin measurementOrdere d By: Genevieve Wu on 01-02-2025 Hemoglobin (Bld) [Mass/Vol] 11.9 g/dL Low 12.0-15.0 [facility] Immature granulocytes/100 WB C Auto (Bld)Ordered By: Genevieve Wu on 01-02-2025 Immature granulocytes/100 WBC (Bld) 0.500 % 0.0-0.9 [facility] Comment on above: IG% - Immature Granu locytes (promyelocytes, myelocytes and metamyelocytes) > 1% indicates that a LEFT SHIFT is Present. LDL calc ser/plasOrdered By: Genevieve Wu on 01-02-2025 Cholesterol in LDL [Mass/Vol] 97 mg/dL [facility] Comment on above: Saeuyxrbdk=717-722 m g/dL & Higher Jdoz=853 mg/dL or greater Laboratory - Chemistry and C hemistry - challengeOrdered By: Genevieve Wu on 01-02-2025 AST [Catalytic activity/Vol] 23 U/L <32 [facility] MCV (mean corpuscular volume ) determinationOrdered By: Genevieve Wu on 01-02-2025 MCV (RBC) [Entitic vol] 88.7 fL 81-99 [facility] Mean corpuscular hemoglobin (MCH) determinationOrdered By: Genevieve Wu on 01-02-2025 MCH (RBC) [Entitic mass] 26.8 pg Low 27.0-32.0 [facility] Mean corpuscular hemoglobin concentration (MCHC) determinationOrdered By: Genevieve Wu on 01-02-2025 MCHC (RBC) [Mass/Vol] 30.2 g/dL Low 32-36 [facility] Mean platelet volume determi nationOrdered By: Genevieve Wu on 01-02-2025 Platelet mean volume (Bld) [Entitic vol] 9.2 fL 6.2-12.0 [facility] Monocyte percentageOrdered B y: Genevieve Wu on 01-02-2025 Monocytes/100 WBC (Bld) 12.3 % High 0-10 [facility] Neutrophil percentageOrdered By: Abeyasminsharon Waynejuanitadrew on 01-02-2025 Neutrophils/100 WBC (Bld) 66.1 % 47-70 [facility] No Panel InformationOrdered By: Genevieve Blackjuanitadrew on 01-02-2025 23 U/L <32 [facility] Nucleated red blood cell per centageOrdered By: Genevieve Blackjuanitadrew on 01-02-2025 Nucleated RBC/100 WBC (Bld) [Ratio] 0 % 0-5 [facility] Platelet countOrdered By: Abe yasminsharon Blackjuanitadrew on 01-02-2025 Platelets (Bld) [#/Vol] 431 10*3/uL 150-450 [facility] Potassium measurement (mass/ volume)Ordered By: Genevieve Wu on 01-02-2025 Potassium (Unsp spec) [Mass/Vol] 3.8 mmol/L 3.3-5.1 [facility] RBC Auto (Bld) [#/Vol]Ordere d By: Genevieve Wu on 01-02-2025 RBC (Bld) [#/Vol] 4.44 10*6/uL 4.2-5.4 [facility] Screening total cholesterol/ high density lipoprotein (HDL) cholesterol ratioOrdered By: Genevieve Wu on 01-02-2025 Cholesterol.total/Cho lesterol in HDL [Mass ratio] 3.62 {ratio} [facility] Serum creatinine measurement (mass/volume)Ordered By: Genevieve Wu on 01-02-2025 Creatinine [Mass/Vol] 0.92 mg/dL 0.70-1.20 [facility] Serum globulin measurementOr dered By: Genevieve Wu on 01-02-2025 Globulin (S) [Mass/Vol] 3.6 g/dL 2.2-4.2 [facility] Serum glucose measurement (m ass/volume)Ordered By: Genevieve Galavizdrew on 01-02-2025 Glucose [Mass/Vol] 76 mg/dL 70-99 [facility] Serum or plasma alanine carpio otransferase (ALT) measurementOrdered By: sharon Wu on 01-02-2025 ALT [Catalytic activity/Vol] 7 U/L <35 [facility] Serum or plasma albumin candice urement (mass/volume)Ordered By: dion Wu 01-02-2025 Albumin [Mass/Vol] 4.0 g/dL 3.4-4.8 [facility] Serum or plasma alkaline anthony sphatase measurementOrdered By: [facility] Wayne01-02-2025 ALP [Catalytic activity/Vol] 150 U/L High 35-104 [facility] Serum or plasma calcium candice urement (mass/volume)Ordered By: [facility] Blackdrew 01-02-2025 Calcium [Mass/Vol] 9.7 mg/dL 7.6-11.0 [facility] Serum or plasma cholesterol in HDL measurement (mass/volume)Ordered By: Abe Jazmin 01-02-2025 Cholesterol in HDL [Mass/Vol] 52 mg/dL >40 [facility] Comment on above: National Cholesterol Education Program (NCEP) guidelines:<40 mg/dL: Low HDL-cholesterol (major risk factor for CHD)>= 60 mg/dL: High HDL-cholesterol (negative risk factor for CHD)HDL-cholesterol is affected by a number of factors, e.g. smoking, exercise, hormones, sex and age. Serum or plasma cholesterol measurement (mass/volume)Ordered By: Genevieve Waynejuanitadrew 01-02-2025 Cholesterol [Mass/Vol] 187 mg/dL <201 [facility] Comment on above: Cholesterol level, D esirable <200 mg/dLBorderline high cholesterol 200-239 mg/dLHigh cholesterol >=240 mg/dLRecommendations of the NCEP Adult Treatment Panel for the following risk-cutoff thresholds for the [place] population. Serum or plasma urea nitroge n measurement (mass/volume)Ordered By: Salliesharon Blackjuanitadrew 01-02-2025 Urea nitrogen [Mass/Vol] 17 mg/dL 4-19 [facility] Sodium levelOrdered By: Gerardo dion Jazmin on 01-02-2025 Sodium [Moles/Vol] 139 mmol/L 133-145 [facility] Total proteinOrdered By: Garry mario Jazmin on 01-02-2025 Protein [Mass/Vol] 7.6 g/dL 5.9-8.4 [facility] Triglycerides measurementOrd ered By: Gerardokarleysharon Wu on 01-02-2025 Triglyceride [Mass/Vol] 192 mg/dL <199 [facility] Comment on above: The drugs N-Acetylcy steine and Metamizole may falsely depress this assay. Normal range: <150 mg/dLBorderline High: 150-199 mg/dLHigh: 200-499 mg/dLVery High: >500 mg/dL White blood cell (WBC) count Ordered By: Genevieve Wu on 01-02-2025 WBC (Bld) [#/Vol] 9.6 10*3/uL 4.4-11.0 [facility] Pulmonary Visit Reporton Pulmonary Visit Report Normal [facility] Neurology Visit Reporton Neurology Visit Report Normal [facility] Absolute lymphocyte countOrd ered By: Genevieve Wu on 11-28-2024 Lymphocytes Auto (Unsp spec) [#/Vol] 2.10 10*3/uL 0.83-4.51 [facility] Absolute neutrophil countOrd ered By: Genevieve Wu on 11-28-2024 Neutrophils (Bld) [#/Vol] 6.1 10*3/uL 2.0-7.7 [facility] Anion gap in Serum or Plasma Ordered By: Genevieve Wu on 11-28-2024 Anion gap [Moles/Vol] 14 mmol/L 5-15 [facility] Automated lymphocyte count a s percentage of total leukocytesOrdered By: Genevieve Wu on 11-28-2024 Lymphocytes/100 WBC Auto (Unsp spec) 22.2 % 19-41 [facility] BUN/creatinine ratioOrdered By: Genevieve Wu on 11-28-2024 Urea nitrogen/Creatinine [Mass ratio] 14.9 mg/mg 10-20 [facility] Basophil percentageOrdered B y: Gerardokarleysharon Blackchey on 11-28-2024 Basophils/100 WBC (Bld) 0.7 % 0-1 [facility] Carbon dioxide, total [Moles /volume] in Central venous bloodOrdered By: Genevieve Blackjuanitadrew on 11-28-2024 CO2 [Moles/Vol] 23.8 mmol/L 21.0-32.0 [facility] Chest without Contraston Chest without Contrast Normal [facility] Chloride assayOrdered By: Abe mihirdion Wu on 11-28-2024 Chloride [Moles/Vol] 103 mmol/L 98-108 [facility] Eosinophil percentageOrdered By: Gerardokarleysharon Blackjuanitadrew on 11-28-2024 Eosinophils/100 WBC (Bld) 2.0 % 0-5 [facility] Erythrocyte distribution wid th ratioOrdered By: Genevieve Blackjuanitadrew on 11-28-2024 Erythrocyte distribution width (RBC) [Ratio] 14.6 % 11.6-14.6 [facility] Erythrocyte distribution wid th standard deviationOrdered By: haseeb Waynejuanitadrew on 11-28-2024 Erythrocyte distribution width (RBC) [Ratio] 46.7 fl High 35.1-43.9 [facility] Glomerular filtration rate ( GFR) estimation/1.73 sq m using serum, plasma, or whole bOrdered By: Genevieve Blackjuanitadrew on 11-28-2024 GFR/1.73 sq M.predicted among non-blacks MDRD (S/P/Bld) [Vol rate/Area] 57 mL/min/{1.73_m2} Low >60 [facility] Comment on above: mL/min/1.73m2 CKD-EP I Creatinine Equation (2020) Hematocrit Auto (Bld) [Volum e fraction]Ordered By: Genevieve Wu on 11-28-2024 Hematocrit (Bld) [Volume fraction] 40.5 % 37-47 [facility] Hemoglobin measurementOrdere d By: Genevieve Wu on 11-28-2024 Hemoglobin (Bld) [Mass/Vol] 12.3 g/dL 12.0-15.0 [facility] Immature granulocytes/100 WB C Auto (Bld)Ordered By: Genevieve Wu on 11-28-2024 Immature granulocytes/100 WBC (Bld) 0.400 % 0.0-0.9 [facility] Comment on above: IG% - Immature Granu locytes (promyelocytes, myelocytes and metamyelocytes) > 1% indicates that a LEFT SHIFT is Present. MCV (mean corpuscular volume ) determinationOrdered By: Genevieve Wu on 11-28-2024 MCV (RBC) [Entitic vol] 87.9 fL 81-99 [facility] Mean corpuscular hemoglobin (MCH) determinationOrdered By: Genevieve Wu on 11-28-2024 MCH (RBC) [Entitic mass] 26.7 pg Low 27.0-32.0 [facility] Mean corpuscular hemoglobin concentration (MCHC) determinationOrdered By: Gerardosmyrnasharon Wu on 11-28-2024 MCHC (RBC) [Mass/Vol] 30.4 g/dL Low 32-36 [facility] Mean platelet volume determi nationOrdered By: Genevieve Wu on 11-28-2024 Platelet mean volume (Bld) [Entitic vol] 9.3 fL 6.2-12.0 [facility] Monocyte percentageOrdered B y: Genevieve Wu on 11-28-2024 Monocytes/100 WBC (Bld) 10.1 % High 0-10 [facility] Neutrophil percentageOrdered By: Genevieve Wu on 11-28-2024 Neutrophils/100 WBC (Bld) 64.6 % 47-70 [facility] Nucleated red blood cell per centageOrdered By: haseeb Wu on 11-28-2024 Nucleated RBC/100 WBC (Bld) [Ratio] 0 % 0-5 [facility] Platelet countOrdered By: Abe Wu on 11-28-2024 Platelets (Bld) [#/Vol] 415 10*3/uL 150-450 [facility] Potassium measurement (mass/ volume)Ordered By: Genevieve Wu on 11-28-2024 Potassium (Unsp spec) [Mass/Vol] 3.4 mmol/L 3.3-5.1 [facility] RBC Auto (Bld) [#/Vol]Ordere d By: Genevieve Wu on 11-28-2024 RBC (Bld) [#/Vol] 4.61 10*6/uL 4.2-5.4 [facility] Serum creatinine measurement (mass/volume)Ordered By: Abemihirkarleysharon Blackjuanitadrew on 11-28-2024 Creatinine [Mass/Vol] 0.98 mg/dL 0.70-1.20 [facility] Serum glucose measurement (m ass/volume)Ordered By: [facility] on 11-28-2024 Glucose [Mass/Vol] 95 mg/dL 70-99 [facility] Serum or plasma calcium candice urement (mass/volume)Ordered By: [facility] Blackjuanitadrew on 11-28-2024 Calcium [Mass/Vol] 9.5 mg/dL 7.6-11.0 [facility] Serum or plasma urea nitroge n measurement (mass/volume)Ordered By: Genevieve Blackjuanitadrew on 11-28-2024 Urea nitrogen [Mass/Vol] 15 mg/dL 4-19 [facility] Sodium levelOrdered By: [facility] [place] on 11-28-2024 Sodium [Moles/Vol] 141 mmol/L 133-145 [facility] White blood cell (WBC) count Ordered By: Abehaseeb Blackjuanitadrew on 11-28-2024 WBC (Bld) [#/Vol] 9.5 10*3/uL 4.4-11.0 [facility] Echocardiogram study reportO rdered By: Sharon Crouch on 11-09-2024 Study report [facility] [address] [place] [address] Echo Complete 11/08/24911 MR#: [id number] Acct: [id number] Name: SAPNA BULLARD Rep #:[id number] : 1940 84 From: Sharon Crouch MD Attending Dr: Dr. Yunior Desai MD Status: REG CLI Ordering Dr: Yunior Desai MD Date: 11/08/24 Location: [facility] Sex: F C Admitted: Reason [...] root. Ordering Physician: Yunior Desai Referring Physician: Geenvieve Wu Performed By: Tanya Grigsby, NANCY, RVT 11/09/24 1034 Date _ Sharon Crouch MD CC: Dr. Genevieve Wu MD; Dr. Yunior Desai MD ~ Date Dictated: 11/08/24 0912 Date Transcribed: 11/09/24 1034 Laboratory Chemical Assistant: Signed [facility] Work Phone: Echo Completeon 11-08-2024 Echo Complete Normal [facility] Absolute lymphocyte countOrd ered By: Genevieve Wu on 10-31-2024 Lymphocytes Auto (Unsp spec) [#/Vol] 1.57 10*3/uL 0.83-4.51 [facility] Absolute neutrophil countOrd ered By: Genevieve Wu on 10-31-2024 Neutrophils (Bld) [#/Vol] 5.6 10*3/uL 2.0-7.7 [facility] Anion gap in Serum or Plasma Ordered By: Genevieve Wu on 10-31-2024 Anion gap [Moles/Vol] 11 mmol/L 5-15 [facility] Automated lymphocyte count a s percentage of total leukocytesOrdered By: Genevieve Wu on 10-31-2024 Lymphocytes/100 WBC Auto (Unsp spec) 18.6 % Low 19-41 [facility] BUN/creatinine ratioOrdered By: Genevieve Wu on 10-31-2024 Urea nitrogen/Creatinine [Mass ratio] 17.8 mg/mg 10-20 [facility] Basophil percentageOrdered B y: Genevieve Wu on 10-31-2024 Basophils/100 WBC (Bld) 0.6 % 0-1 [facility] Carbon dioxide, total [Moles /volume] in Central venous bloodOrdered By: Genevieve Wu on 10-31-2024 CO2 [Moles/Vol] 25.5 mmol/L 21.0-32.0 [facility] Chloride assayOrdered By: Abe Wu on 10-31-2024 Chloride [Moles/Vol] 103 mmol/L 98-108 [facility] Eosinophil percentageOrdered By: Genevieve Wu on 10-31-2024 Eosinophils/100 WBC (Bld) 2.1 % 0-5 [facility] Erythrocyte distribution wid th ratioOrdered By: Genevieve Wu on 10-31-2024 Erythrocyte distribution width (RBC) [Ratio] 14.3 % 11.6-14.6 [facility] Erythrocyte distribution wid th standard deviationOrdered By: Genevieve Wu on 10-31-2024 Erythrocyte distribution width (RBC) [Ratio] 45.2 fl High 35.1-43.9 [facility] Glomerular filtration rate ( GFR) estimation/1.73 sq m using serum, plasma, or whole bOrdered By: [facility] on 10-31-2024 GFR/1.73 sq M.predicted among non-blacks MDRD (S/P/Bld) [Vol rate/Area] 57 mL/min/{1.73_m2} Low >60 [facility] Comment on above: mL/min/1.73m2 CKD-EP I Creatinine Equation (2020) Hematocrit Auto (Bld) [Volum e fraction]Ordered By: Genevieve Wu on 10-31-2024 Hematocrit (Bld) [Volume fraction] 36.3 % Low 37-47 [facility] Hemoglobin measurementOrdere d By: Genevieve Wu on 10-31-2024 Hemoglobin (Bld) [Mass/Vol] 11.3 g/dL Low 12.0-15.0 [facility] Immature granulocytes/100 WB C Auto (Bld)Ordered By: mihirsmyrnasharon Wu 10-31-2024 Immature granulocytes/100 WBC (Bld) 0.500 % 0.0-0.9 [facility] Comment on above: IG% - Immature Granu locytes (promyelocytes, myelocytes and metamyelocytes) > 1% indicates that a LEFT SHIFT is Present. MCV (mean corpuscular volume ) determinationOrdered By: Gerardosmyrnasharon Wu on 10-31-2024 MCV (RBC) [Entitic vol] 86.2 fL 81-99 [facility] Mean corpuscular hemoglobin (MCH) determinationOrdered By: mihirsmyrnasharon Blackdrew 10-31-2024 MCH (RBC) [Entitic mass] 26.8 pg Low 27.0-32.0 [facility] Mean corpuscular hemoglobin concentration (MCHC) determinationOrdered By: Genevieve Wu on 10-31-2024 MCHC (RBC) [Mass/Vol] 31.1 g/dL Low 32-36 [facility] Mean platelet volume determi nationOrdered By: Genevieve Wu on 10-31-2024 Platelet mean volume (Bld) [Entitic vol] 9.2 fL 6.2-12.0 [facility] Monocyte percentageOrdered B y: Genevieve Wu on 10-31-2024 Monocytes/100 WBC (Bld) 11.9 % High 0-10 [facility] Neutrophil percentageOrdered By: Genevieve Wu on 10-31-2024 Neutrophils/100 WBC (Bld) 66.3 % 47-70 [facility] Nucleated red blood cell per centageOrdered By: Genevieve Wu on 10-31-2024 Nucleated RBC/100 WBC (Bld) [Ratio] 0 % 0-5 [facility] Platelet countOrdered By: Abe Wu on 10-31-2024 Platelets (Bld) [#/Vol] 353 10*3/uL 150-450 [facility] Potassium measurement (mass/ volume)Ordered By: Genevieve Wu on 10-31-2024 Potassium (Unsp spec) [Mass/Vol] 4.1 mmol/L 3.3-5.1 [facility] RBC Auto (Bld) [#/Vol]Ordere d By: Genevieve Wu on 10-31-2024 RBC (Bld) [#/Vol] 4.21 10*6/uL 4.2-5.4 [facility] Serum creatinine measurement (mass/volume)Ordered By: Genevieve Wu on 10-31-2024 Creatinine [Mass/Vol] 0.99 mg/dL 0.70-1.20 [facility] Serum glucose measurement (m ass/volume)Ordered By: Genevieve Wu on 10-31-2024 Glucose [Mass/Vol] 92 mg/dL 70-99 [facility] Serum or plasma calcium candice urement (mass/volume)Ordered By: Genevieve Wu on 10-31-2024 Calcium [Mass/Vol] 9.1 mg/dL 7.6-11.0 [facility] Serum or plasma urea nitroge n measurement (mass/volume)Ordered By: Genevieve Wu on 10-31-2024 Urea nitrogen [Mass/Vol] 18 mg/dL 4-19 [facility] Sodium levelOrdered By: Gerardo kohlinick Jazmin on 10-31-2024 Sodium [Moles/Vol] 139 mmol/L 133-145 [facility] White blood cell (WBC) count Ordered By: Genevieve Wu on 10-31-2024 WBC (Bld) [#/Vol] 8.5 10*3/uL 4.4-11.0 [facility] Cardiology Visit Reporton Cardiology Visit Report Normal [facility] Absolute lymphocyte countOrd ered By: Genevieve Wu on 10-03-2024 Lymphocytes Auto (Unsp spec) [#/Vol] 2.02 10*3/uL 0.83-4.51 [facility] Absolute neutrophil countOrd ered By: Genevieve Wu on 10-03-2024 Neutrophils (Bld) [#/Vol] 5.3 10*3/uL 2.0-7.7 [facility] Anion gap in Serum or Plasma Ordered By: Genevieve Wu on 10-03-2024 Anion gap [Moles/Vol] 11 mmol/L 5-15 [facility] Automated lymphocyte count a s percentage of total leukocytesOrdered By: Genevieve Wu on 10-03-2024 Lymphocytes/100 WBC Auto (Unsp spec) 23.5 % 19-41 [facility] BUN/creatinine ratioOrdered By: Genevieve Wu on 10-03-2024 Urea nitrogen/Creatinine [Mass ratio] 22.3 mg/mg High 10-20 [facility] Basophil percentageOrdered B y: Genevieve Wu on 10-03-2024 Basophils/100 WBC (Bld) 0.6 % 0-1 [facility] Bilirubin directOrdered By: Genevieve Wu on 10-03-2024 Bilirubin.direct [Mass/Vol] mg/dL 0.00-0.30 [facility] Bilirubin, totalOrdered By: Genevieve Wu on 10-03-2024 Bilirubin [Mass/Vol] 0.18 mg/dL 0.00-1.30 [facility] Carbon dioxide, total [Moles /volume] in Central venous bloodOrdered By: Genevieve Wu on 10-03-2024 CO2 [Moles/Vol] 28.4 mmol/L 21.0-32.0 [facility] Chloride assayOrdered By: Abe Wu on 10-03-2024 Chloride [Moles/Vol] 101 mmol/L 98-108 [facility] Eosinophil percentageOrdered By: Genevieve Wu on 10-03-2024 Eosinophils/100 WBC (Bld) 2.4 % 0-5 [facility] Erythrocyte distribution wid th ratioOrdered By: Genevieve Wu on 10-03-2024 Erythrocyte distribution width (RBC) [Ratio] 14.8 % High 11.6-14.6 [facility] Erythrocyte distribution wid th standard deviationOrdered By: mihirsmyrnasharon Wu on 10-03-2024 Erythrocyte distribution width (RBC) [Ratio] 47.3 fl High 35.1-43.9 [facility] Glomerular filtration rate ( GFR) estimation/1.73 sq m using serum, plasma, or whole bOrdered By: Genevieve Wu on 10-03-2024 GFR/1.73 sq M.predicted among non-blacks MDRD (S/P/Bld) [Vol rate/Area] 61 mL/min/{1.73_m2} >60 [facility] Comment on above: mL/min/1.73m2 CKD-EP I Creatinine Equation (2020) Hematocrit Auto (Bld) [Volum e fraction]Ordered By: Genevieve Wu on 10-03-2024 Hematocrit (Bld) [Volume fraction] 39.7 % 37-47 [facility] Hemoglobin measurementOrdere d By: Genevieve Wu on 10-03-2024 Hemoglobin (Bld) [Mass/Vol] 12.1 g/dL 12.0-15.0 [facility] Immature granulocytes/100 WB C Auto (Bld)Ordered By: Genevieve Wu on 10-03-2024 Immature granulocytes/100 WBC (Bld) 0.800 % 0.0-0.9 [facility] Comment on above: IG% - Immature Granu locytes (promyelocytes, myelocytes and metamyelocytes) > 1% indicates that a LEFT SHIFT is Present. Laboratory - Chemistry and C hemistry - challengeOrdered By: Genevieve Wu on 10-03-2024 AST [Catalytic activity/Vol] 22 U/L <32 [facility] MCV (mean corpuscular volume ) determinationOrdered By: Genevieve Wu on 10-03-2024 MCV (RBC) [Entitic vol] 87.3 fL 81-99 [facility] Mean corpuscular hemoglobin (MCH) determinationOrdered By: mihirsmyrnasharon Wu on 10-03-2024 MCH (RBC) [Entitic mass] 26.6 pg Low 27.0-32.0 [facility] Mean corpuscular hemoglobin concentration (MCHC) determinationOrdered By: mihirsmyrnasharon Wu on 10-03-2024 MCHC (RBC) [Mass/Vol] 30.5 g/dL Low 32-36 [facility] Mean platelet volume determi nationOrdered By: Genevieve Wu on 10-03-2024 Platelet mean volume (Bld) [Entitic vol] 9.1 fL 6.2-12.0 [facility] Monocyte percentageOrdered B y: Genevieve Wu on 10-03-2024 Monocytes/100 WBC (Bld) 11.4 % High 0-10 [facility] Neutrophil percentageOrdered By: mihirsmyrnasharon Wu on 10-03-2024 Neutrophils/100 WBC (Bld) 61.3 % 47-70 [facility] Nucleated red blood cell per centageOrdered By: Genevieve Wu on 10-03-2024 Nucleated RBC/100 WBC (Bld) [Ratio] 0 % 0-5 [facility] Platelet countOrdered By: Abe Wu on 10-03-2024 Platelets (Bld) [#/Vol] 456 10*3/uL High 150-450 [facility] Potassium measurement (mass/ volume)Ordered By: Genevieve Wu on 10-03-2024 Potassium (Unsp spec) [Mass/Vol] 4.1 mmol/L 3.3-5.1 [facility] RBC Auto (Bld) [#/Vol]Ordere d By: Genevieve Wu on 10-03-2024 RBC (Bld) [#/Vol] 4.55 10*6/uL 4.2-5.4 [facility] Serum creatinine measurement (mass/volume)Ordered By: Genevieve Wu on 10-03-2024 Creatinine [Mass/Vol] 0.93 mg/dL 0.70-1.20 [facility] Serum globulin measurementOr dered By: Genevieve Wu on 10-03-2024 Globulin (S) [Mass/Vol] 3.5 g/dL 2.2-4.2 [facility] Serum glucose measurement (m ass/volume)Ordered By: Genevieve Wu on 10-03-2024 Glucose [Mass/Vol] 95 mg/dL 70-99 [facility] Serum or plasma alanine carpio otransferase (ALT) measurementOrdered By: Genevieve Wu on 10-03-2024 ALT [Catalytic activity/Vol] 16 U/L <35 [facility] Serum or plasma albumin candice urement (mass/volume)Ordered By: Genevieve Wu 10-03-2024 Albumin [Mass/Vol] 3.9 g/dL 3.4-4.8 [facility] Serum or plasma alkaline anthony sphatase measurementOrdered By: Genevieve Wu 10-03-2024 ALP [Catalytic activity/Vol] 138 U/L High 35-104 [facility] Serum or plasma calcium candice urement (mass/volume)Ordered By: Genevieve Wu 10-03-2024 Calcium [Mass/Vol] 10.0 mg/dL 7.6-11.0 [facility] Serum or plasma urea nitroge n measurement (mass/volume)Ordered By: Genevieve Wu 10-03-2024 Urea nitrogen [Mass/Vol] 21 mg/dL High 4-19 [facility] Sodium levelOrdered By: Gerardo Wu on 10-03-2024 Sodium [Moles/Vol] 141 mmol/L 133-145 [facility] Total proteinOrdered By: Garry Wu on 10-03-2024 Protein [Mass/Vol] 7.4 g/dL 5.9-8.4 [facility] White blood cell (WBC) count Ordered By: Genevieve Wu on 10-03-2024 WBC (Bld) [#/Vol] 8.6 10*3/uL 4.4-11.0 [facility] Pulmonary Visit Reporton Pulmonary Visit Report Normal [facility] Absolute lymphocyte countOrd ered By: Genevieve Wu on 08-29-2024 Lymphocytes Auto (Unsp spec) [#/Vol] 1.30 10*3/uL 0.83-4.51 [facility] Absolute neutrophil countOrd ered By: Genevieve Waynechey on 08-29-2024 Neutrophils (Bld) [#/Vol] 5.4 10*3/uL 2.0-7.7 [facility] Anion gap in Serum or Plasma Ordered By: Genevieve Waynechey on 08-29-2024 Anion gap [Moles/Vol] 9 mmol/L 5-15 [facility] Automated lymphocyte count a s percentage of total leukocytesOrdered By: Genevieve Waynejuanitadrew on 08-29-2024 Lymphocytes/100 WBC Auto (Unsp spec) 16.7 % Low 19-41 [facility] BUN/creatinine ratioOrdered By: Genevieve Galavizdrew on 08-29-2024 Urea nitrogen/Creatinine [Mass ratio] 20.0 mg/mg 10-20 [facility] Basophil percentageOrdered B y: Genevieve Wu on 08-29-2024 Basophils/100 WBC (Bld) 0.6 % 0-1 [facility] Carbon dioxide, total [Moles /volume] in Central venous bloodOrdered By: Genevieve Waynejuanitadrew on 08-29-2024 CO2 [Moles/Vol] 27.1 mmol/L 21.0-32.0 [facility] Chloride assayOrdered By: Abe Wu on 08-29-2024 Chloride [Moles/Vol] 101 mmol/L 98-108 [facility] Eosinophil percentageOrdered By: Genevieve Wu on 08-29-2024 Eosinophils/100 WBC (Bld) 2.2 % 0-5 [facility] Erythrocyte distribution wid th ratioOrdered By: Genevieve Wu on 08-29-2024 Erythrocyte distribution width (RBC) [Ratio] 16.1 % High 11.6-14.6 [facility] Erythrocyte distribution wid th standard deviationOrdered By: haseeb Wu on 08-29-2024 Erythrocyte distribution width (RBC) [Ratio] 50.8 fl High 35.1-43.9 [facility] Glomerular filtration rate ( GFR) estimation/1.73 sq m using serum, plasma, or whole bOrdered By: Genevieve Wu on 08-29-2024 GFR/1.73 sq M.predicted among non-blacks MDRD (S/P/Bld) [Vol rate/Area] 64 mL/min/{1.73_m2} >60 [facility] Comment on above: mL/min/1.73m2 CKD-EP I Creatinine Equation (2020) Hematocrit Auto (Bld) [Volum e fraction]Ordered By: Genevieve Wu on 08-29-2024 Hematocrit (Bld) [Volume fraction] 38.6 % 37-47 [facility] Hemoglobin measurementOrdere d By: Genevieve Wu on 08-29-2024 Hemoglobin (Bld) [Mass/Vol] 11.9 g/dL Low 12.0-15.0 [facility] Immature granulocytes/100 WB C Auto (Bld)Ordered By: Genevieve Wu 08-29-2024 Immature granulocytes/100 WBC (Bld) 0.500 % 0.0-0.9 [facility] Comment on above: IG% - Immature Granu locytes (promyelocytes, myelocytes and metamyelocytes) > 1% indicates that a LEFT SHIFT is Present. MCV (mean corpuscular volume ) determinationOrdered By: Genevieve Wu on 08-29-2024 MCV (RBC) [Entitic vol] 86.2 fL 81-99 [facility] Mean corpuscular hemoglobin (MCH) determinationOrdered By: Genevieve Wu on 08-29-2024 MCH (RBC) [Entitic mass] 26.6 pg Low 27.0-32.0 [facility] Mean corpuscular hemoglobin concentration (MCHC) determinationOrdered By: Genevieve Wu on 08-29-2024 MCHC (RBC) [Mass/Vol] 30.8 g/dL Low 32-36 [facility] Mean platelet volume determi nationOrdered By: Genevieve Wu on 08-29-2024 Platelet mean volume (Bld) [Entitic vol] 8.9 fL 6.2-12.0 [facility] Monocyte percentageOrdered B y: Genevieve Wu on 08-29-2024 Monocytes/100 WBC (Bld) 11.2 % High 0-10 [facility] Neutrophil percentageOrdered By: Genevieve Wu on 08-29-2024 Neutrophils/100 WBC (Bld) 68.8 % 47-70 [facility] Nucleated red blood cell per centageOrdered By: Genevieve Wu on 08-29-2024 Nucleated RBC/100 WBC (Bld) [Ratio] 0 % 0-5 [facility] Platelet countOrdered By: Abe mihirdion Wu on 08-29-2024 Platelets (Bld) [#/Vol] 389 10*3/uL 150-450 [facility] Potassium measurement (mass/ volume)Ordered By: Genevieve Wu on 08-29-2024 Potassium (Unsp spec) [Mass/Vol] 4.1 mmol/L 3.3-5.1 [facility] RBC Auto (Bld) [#/Vol]Ordere d By: Genevieve Wu on 08-29-2024 RBC (Bld) [#/Vol] 4.48 10*6/uL 4.2-5.4 [facility] Serum creatinine measurement (mass/volume)Ordered By: Genevieve Wu on 08-29-2024 Creatinine [Mass/Vol] 0.90 mg/dL 0.70-1.20 [facility] Serum glucose measurement (m ass/volume)Ordered By: Genevieve Waynejuanitadrew on 08-29-2024 Glucose [Mass/Vol] 87 mg/dL 70-99 [facility] Serum or plasma calcium candice urement (mass/volume)Ordered By: mihirsmyrnasharon Waynejuanitadrew on 08-29-2024 Calcium [Mass/Vol] 9.6 mg/dL 7.6-11.0 [facility] Serum or plasma urea nitroge n measurement (mass/volume)Ordered By: Gerardosmyrnasharon Waynejuanitadrew on 08-29-2024 Urea nitrogen [Mass/Vol] 18 mg/dL 4-19 [facility] Sodium levelOrdered By: [facility] Wu on 08-29-2024 Sodium [Moles/Vol] 138 mmol/L 133-145 [facility] White blood cell (WBC) count Ordered By: [facility] Atlantasharon Waynejuanitadrew on 08-29-2024 WBC (Bld) [#/Vol] 7.8 10*3/uL 4.4-11.0 [facility] OPERATIVE PROCEDURESon 08-12 OPERATIVE PROCEDURES [facility] OPERATIVE REPORT NAME ACCOUNT SEX AGE ADMIT DISCHARGE PT MED. RECORD# NUMBER DATE DATE TYPE SAPNA BULLARD [id number] F 84 08/11/24 2 [id number] ROOM: DATE OF : 1940 DICTATING PHYSICIAN: Marcos White DATE OF PROCEDURE: August 11, 2024 SURGEON: Marcos White DO YARN DRY ROOM WORKER: None. ANESTHESIA: Local. PREPROCEDURE DIAGNOSES: 1. Lumbosacral [...] Marcos White DO 08/11/24 10:54 JOB #: [id number] Transcribed By: am 08/11/24 11:28 Electronically signed by: E-SIGN: MARCOS WHITE 08/12/24 14:42 Page 2 of 2 SAPNA BULLARD Operative Report Normal [facility] C-ARM USAGE 1 HOUR C-ARM USAGE 1 HOUR [place] [address] Patient: SAPNA BULLARD. Phone#: : [phone] Age: 84 Gender: F Pt. Type: Out Account: [id number] Location: [id number] Ordering: MARCOS WHITE Exam Date: 08/11/2024/10:47 Family Phys: NICCI LEMUS Charge Code: 749398 Physician: [place] Order #: [id number] Dose#: 1.12 [id number] PROCEDURE: C-ARM USEAGE 1 HR COMPARISON: [facility], C-ARM USEAGE 1 HR, 02/05/2024, 11:01. INDICATIONS: [...] MD on 08/11/2024 at 12:24 Normal [facility] Chest WITH Contraston 2024 Chest WITH Contrast Normal [facility] Absolute lymphocyte countOrd ered By: Genevieve Wu on 08-01-2024 Lymphocytes Auto (Unsp spec) [#/Vol] 1.98 10*3/uL 0.83-4.51 [facility] Absolute neutrophil countOrd ered By: Genevieve Wu on 08-01-2024 Neutrophils (Bld) [#/Vol] 4.1 10*3/uL 2.0-7.7 [facility] Automated lymphocyte count a s percentage of total leukocytesOrdered By: Genevieve Wu on 08-01-2024 Lymphocytes/100 WBC Auto (Unsp spec) 25.7 % 19-41 [facility] Basophil percentageOrdered B y: Genevieve Wu on 08-01-2024 Basophils/100 WBC (Bld) 0.9 % 0-1 [facility] Blood urea nitrogen (BUN)/cr eatinine ratioOrdered By: Genevieve Wu on 08-01-2024 Urea nitrogen/Creatinine [Mass ratio] 20.6 mg/mg High 10-20 [facility] Carbon dioxide measurementOr dered By: Genevieve Wu on 08-01-2024 CO2 [Moles/Vol] 32.0 mmol/L 21.0-32.0 [facility] Chloride measurementOrdered By: Genevieve Wu on 08-01-2024 Chloride [Moles/Vol] 101 mmol/L 98-107 [facility] Eosinophil percentageOrdered By: Genevieve Wu on 08-01-2024 Eosinophils/100 WBC (Bld) 4.8 % 0-5 [facility] Erythrocyte distribution wid th ratioOrdered By: Efyasminsharon Blackjuanitadrew on 08-01-2024 Erythrocyte distribution width (RBC) [Ratio] 15.6 % High 11.6-14.6 [facility] Erythrocyte distribution wid th standard deviationOrdered By: yasminsharon Blackjuanitadrew on 08-01-2024 Erythrocyte distribution width (RBC) [Ratio] 49.8 fl High 35.1-43.9 [facility] Glomerular filtration rate ( GFR) estimationOrdered By: [facility] Atlantasharon Blackdrew on 08-01-2024 GFR/1.73 sq M.predicted among non-blacks MDRD (S/P/Bld) [Vol rate/Area] 55 mL/min/{1.73_m2} Low >60 [facility] Comment on above: Non- GFR Calc Glucose measurementOrdered B y: Gerardokarleysharon Wu on 08-01-2024 Glucose [Mass/Vol] 85 mg/dL 74-106 [facility] Hematocrit Auto (Bld) [Volum e fraction]Ordered By: [facility] Atlantasharon Blackdrew 08-01-2024 Hematocrit (Bld) [Volume fraction] 39.0 % 37-47 [facility] Hemoglobin measurementOrdere d By: [facility] Atlantasharon Blackdrew 08-01-2024 Hemoglobin (Bld) [Mass/Vol] 11.4 g/dL Low 12.0-15.0 [facility] Immature granulocytes/100 WB C Auto (Bld)Ordered By: [facility] Waynedrew 08-01-2024 Immature granulocytes/100 WBC (Bld) 0.800 % 0.0-0.9 [facility] Comment on above: IG% - Immature Granu locytes (promyelocytes, myelocytes and metamyelocytes) > 1% indicates that a LEFT SHIFT is Present. MCV (mean corpuscular volume ) determinationOrdered By: [facility] Atlantasharon Blackdrew on 08-01-2024 MCV (RBC) [Entitic vol] 87.4 fL 81-99 [facility] Mean corpuscular hemoglobin (MCH) determinationOrdered By: [facility] Atlantasharon Blackdrew 08-01-2024 MCH (RBC) [Entitic mass] 25.6 pg Low 27.0-32.0 [facility] Mean corpuscular hemoglobin concentration (MCHC) determinationOrdered By: Genevieve Wu on 08-01-2024 MCHC (RBC) [Mass/Vol] 29.2 g/dL Low 32-36 [facility] Mean platelet volume determi nationOrdered By: Genevieve Wu on 08-01-2024 Platelet mean volume (Bld) [Entitic vol] 9.0 fL 6.2-12.0 [facility] Monocyte percentageOrdered B y: Genevieve Wu on 08-01-2024 Monocytes/100 WBC (Bld) 14.2 % High 0-10 [facility] Neutrophil percentageOrdered By: Genevieve Wu on 08-01-2024 Neutrophils/100 WBC (Bld) 53.6 % 47-70 [facility] Nucleated red blood cell per centageOrdered By: Genevieve Wu on 08-01-2024 Nucleated RBC/100 WBC (Bld) [Ratio] 0 % 0-5 [facility] Platelet countOrdered By: Abe Wu on 08-01-2024 Platelets (Bld) [#/Vol] 408 10*3/uL 150-450 [facility] Potassium measurementOrdered By: Genevieve Wu on 08-01-2024 Potassium [Moles/Vol] 4.1 mmol/L 3.5-5.1 [facility] RBC Auto (Bld) [#/Vol]Ordere d By: Genevieve Wu on 08-01-2024 RBC (Bld) [#/Vol] 4.46 10*6/uL 4.2-5.4 [facility] Serum anion gap measurementO rdered By: Genevieve Wu on 08-01-2024 Anion gap [Moles/Vol] 6 mmol/L 5-15 [facility] Serum or plasma calcium candice urement (mass/volume)Ordered By: Genevieve Wu on 08-01-2024 Calcium [Mass/Vol] 10.1 mg/dL 8.5-10.1 [facility] Serum or plasma creatinine m easurement (mass/volume)Ordered By: Genevieve Wu on 08-01-2024 Creatinine [Mass/Vol] 1.02 mg/dL 0.55-1.02 [facility] Comment on above: The validity of the calculated GFR & GFRAA in patients over 70 years has not been determined. Clinical correlation is essential. Serum or plasma urea nitroge n measurement (mass/volume)Ordered By: Genevieve Wu on 08-01-2024 Urea nitrogen [Mass/Vol] 21 mg/dL High 7-18 [facility] Sodium levelOrdered By: Gerardo ashley Waynechey on 08-01-2024 Sodium [Moles/Vol] 139 mmol/L 136-145 [facility] White blood cell (WBC) count Ordered By: Genevieve Wu on 08-01-2024 WBC (Bld) [#/Vol] 7.7 10*3/uL 4.4-11.0 [facility] Neurology Visit Reporton Neurology Visit Report Normal [facility] Absolute lymphocyte countOrd ered By: Genevieve Wu on 06-30-2024 Lymphocytes Auto (Unsp spec) [#/Vol] 1.62 10*3/uL 0.83-4.51 [facility] Absolute neutrophil countOrd ered By: Genevieve Wu on 06-30-2024 Neutrophils (Bld) [#/Vol] 4.2 10*3/uL 2.0-7.7 [facility] Automated lymphocyte count a s percentage of total leukocytesOrdered By: Genevieve Wu on 06-30-2024 Lymphocytes/100 WBC Auto (Unsp spec) 22.7 % 19-41 [facility] Basophil percentageOrdered B y: Genevieve Wu on 06-30-2024 Basophils/100 WBC (Bld) 0.6 % 0-1 [facility] Blood urea nitrogen (BUN)/cr eatinine ratioOrdered By: Genevieve Wu on 06-30-2024 Urea nitrogen/Creatinine [Mass ratio] 27.1 mg/mg High 10-20 [facility] Carbon dioxide measurementOr dered By: Genevieve Wu on 06-30-2024 CO2 [Moles/Vol] 29.0 mmol/L 21.0-32.0 [facility] Chloride measurementOrdered By: Genevieve Wu on 06-30-2024 Chloride [Moles/Vol] 106 mmol/L 98-107 [facility] Eosinophil percentageOrdered By: Genevieve Wu on 06-30-2024 Eosinophils/100 WBC (Bld) 3.2 % 0-5 [facility] Erythrocyte distribution wid th ratioOrdered By: Genevieve Wu on 06-30-2024 Erythrocyte distribution width (RBC) [Ratio] 15.3 % High 11.6-14.6 [facility] Erythrocyte distribution wid th standard deviationOrdered By: Genevieve Wu on 06-30-2024 Erythrocyte distribution width (RBC) [Ratio] 47.4 fl High 35.1-43.9 [facility] Glomerular filtration rate ( GFR) estimationOrdered By: Genevieve Wu on 06-30-2024 GFR/1.73 sq M.predicted among non-blacks MDRD (S/P/Bld) [Vol rate/Area] 65 mL/min/{1.73_m2} >60 [facility] Comment on above: Non- GFR Calc Glucose measurementOrdered B y: Genevieve Wu on 06-30-2024 Glucose [Mass/Vol] 87 mg/dL 74-106 [facility] Hematocrit Auto (Bld) [Volum e fraction]Ordered By: Genevieve Wu on 06-30-2024 Hematocrit (Bld) [Volume fraction] 32.5 % Low 37-47 [facility] Hemoglobin measurementOrdere d By: Genevieve Wu on 06-30-2024 Hemoglobin (Bld) [Mass/Vol] 9.6 g/dL Low 12.0-15.0 [facility] Immature granulocytes/100 WB C Auto (Bld)Ordered By: Genevieve Wu on 06-30-2024 Immature granulocytes/100 WBC (Bld) 0.800 % 0.0-0.9 [facility] Comment on above: IG% - Immature Granu locytes (promyelocytes, myelocytes and metamyelocytes) > 1% indicates that a LEFT SHIFT is Present. MCV (mean corpuscular volume ) determinationOrdered By: Genevieve Wu on 06-30-2024 MCV (RBC) [Entitic vol] 87.1 fL 81-99 [facility] Mean corpuscular hemoglobin (MCH) determinationOrdered By: Genevieve Wu on 06-30-2024 MCH (RBC) [Entitic mass] 25.7 pg Low 27.0-32.0 [facility] Mean corpuscular hemoglobin concentration (MCHC) determinationOrdered By: Genevieve Wu on 06-30-2024 MCHC (RBC) [Mass/Vol] 29.5 g/dL Low 32-36 [facility] Mean platelet volume determi nationOrdered By: Genevieve Wu on 06-30-2024 Platelet mean volume (Bld) [Entitic vol] 8.8 fL 6.2-12.0 [facility] Monocyte percentageOrdered B y: Genevieve Wu on 06-30-2024 Monocytes/100 WBC (Bld) 13.4 % High 0-10 [facility] Neutrophil percentageOrdered By: Genevieve Wu on 06-30-2024 Neutrophils/100 WBC (Bld) 59.3 % 47-70 [facility] Nucleated red blood cell per centageOrdered By: Genevivee Wu on 06-30-2024 Nucleated RBC/100 WBC (Bld) [Ratio] 0 % 0-5 [facility] Platelet countOrdered By: Abe Wu on 06-30-2024 Platelets (Bld) [#/Vol] 420 10*3/uL 150-450 [facility] Potassium measurementOrdered By: Genevieve Wu on 06-30-2024 Potassium [Moles/Vol] 4.3 mmol/L 3.5-5.1 [facility] RBC Auto (Bld) [#/Vol]Ordere d By: Genevieve Wu on 06-30-2024 RBC (Bld) [#/Vol] 3.73 10*6/uL Low 4.2-5.4 [facility] Serum anion gap measurementO rdered By: Genevieve Wu on 06-30-2024 Anion gap [Moles/Vol] 5 mmol/L 5-15 [facility] Serum or plasma calcium candice urement (mass/volume)Ordered By: Genevieve Wu on 06-30-2024 Calcium [Mass/Vol] 9.2 mg/dL 8.5-10.1 [facility] Serum or plasma creatinine m easurement (mass/volume)Ordered By: Genevieve Blackjuanitadrew on 06-30-2024 Creatinine [Mass/Vol] 0.89 mg/dL 0.55-1.02 [facility] Comment on above: The validity of the calculated GFR & GFRAA in patients over 70 years has not been determined. Clinical correlation is essential. Serum or plasma urea nitroge n measurement (mass/volume)Ordered By: Genevieve Wu on 06-30-2024 Urea nitrogen [Mass/Vol] 24 mg/dL High 7-18 [facility] Sodium levelOrdered By: Gerardo dion Waynejuanitadrew on 06-30-2024 Sodium [Moles/Vol] 140 mmol/L 136-145 [facility] White blood cell (WBC) count Ordered By: Genevieve Blackjuanitadrew on 06-30-2024 WBC (Bld) [#/Vol] 7.2 10*3/uL 4.4-11.0 [facility] ANCAon 06-16-2024 Atypical pANCA <1:20 Normal Neg:<1:20 [facility] Comment on above: Order Comment: PT. R EFUSED BLOOD DRAW. SON ASKED IF ID COME BACK LATER. Result Comment: The atypical pANCA pattern has been observed in asignificant percentage of patients with ulcerative colitis,primary sclerosing cholangitis and autoimmune hepatitis. Performed By: #### L 4600.0100, L505.7010, L3100.5450, L3300.1200, L3500.3600 ####[facility] [address] [place], [address] Cytoplasmic Ab <1:20 Normal Neg:<1:20 [facility] Comment on above: Order Comment: PT. R EFUSED BLOOD DRAW. SON ASKED IF ID COME BACK LATER. Performed By: #### L 4600.0100, L505.7010, L3100.5450, L3300.1200, L3500.3600 ####[facility] [address] [place], [address] Perinuclear Ab. <1:20 Normal Neg:<1:20 [facility] Comment on above: Order Comment: PT. R [...] up testing of positive sera with both OK-3 and MPO-ANCA enzyme immunoassays. As many as 5% serumsamples are positive only by EIA. Ref. AM J Clin [id number];111:507-513. Performed By: #### L 4600.0100, L505.7010, L3100.5450, L3300.1200, L3500.3600 ####[facility] [address] [place], [address] Aspergillus Antibodieson Asp. flavus Negative Normal Neg:<1:1 [facility] Comment on above: Order Comment: PT. R EFUSED BLOOD DRAW. SON ASKED IF ID COME BACK LATER. Performed By: #### L 4600.0100, L505.7010, L3100.5450, L3300.1200, L3500.3600 ####[facility] [address] [place], [address] Asp. fumigatus Negative Normal Neg:<1:1 [facility] Comment on above: Order Comment: PT. R EFUSED BLOOD DRAW. SON ASKED IF ID COME BACK LATER. Performed By: #### L 4600.0100, L505.7010, L3100.5450, L3300.1200, L3500.3600 ####[facility] [address] [place], [address] Asp. niger Negative Normal Neg:<1:1 [facility] Comment on above: Order Comment: PT. R EFUSED BLOOD DRAW. SON ASKED IF ID COME BACK LATER. Performed By: #### L 4600.0100, L505.7010, L3100.5450, L3300.1200, L3500.3600 ####[facility] [address] [place], [address] CCP IgG Antibodieson 025 CCP IgG Ab. 8 units Normal 0-19 [facility] Comment on above: Order Comment: PT. R EFUSED BLOOD DRAW. SON ASKED IF ID COME BACK LATER. Result Comment: Nega tive <20 Weak positive 20 - 39 Moderate positive 40 - 59 Strong positive >59Performed at: [facility] [address] [id number] Director: Curtis Rubio PhD, Phone: [phone] at: [facility] [address] [id number] Director: Angie Moulton MD, Phone: [phone] Performed By: #### L 4600.0100, L505.7010, L3100.5450, L3300.1200, L3500.3600 ####[facility] [address] [place], [address] Basic Metabolic Profile (BMP )on 06-15-2024 BUN Normal 7-18 [facility] Comment on above: Result Comment: Canc elled via OM: Order cancelled - Patient discharged Performed By: #### L 100.0100, L500.2500 ####[facility] [address] [place], [address] BUN/CRE Normal 10-20 [facility] Comment on above: Result Comment: Canc elled via OM: Order cancelled - Patient discharged Performed By: #### L 100.0100, L500.2500 ####[facility] [address] [place], [address] CA,Total Normal 8.5-10.1 [facility] Comment on above: Result Comment: Canc elled via OM: Order cancelled - Patient discharged Performed By: #### L 100.0100, L500.2500 ####[facility] [address] [place], [address] CL Normal 98-107 [facility] Comment on above: Result Comment: Canc elled via OM: Order cancelled - Patient discharged Performed By: #### L 100.0100, L500.2500 ####[facility] [address] [place], [address] CO2 Normal 21.0-32.0 [facility] Comment on above: Result Comment: Canc elled via OM: Order cancelled - Patient discharged Performed By: #### L 100.0100, L500.2500 ####[facility] [address] [place], [address] CREAT,SERUM Normal 0.55-1.02 [facility] Comment on above: Result Comment: Canc elled via OM: Order cancelled - Patient discharged Performed By: #### L 100.0100, L500.2500 ####[facility] [address] [place], [address] EST GFR Normal >60 [facility] Comment on above: Result Comment: Canc elled via OM: Order cancelled - Patient discharged Performed By: #### L 100.0100, L500.2500 ####[facility] [address] [place], [address] EST GFR - AA Normal >60 [facility] Comment on above: Result Comment: Canc elled via OM: Order cancelled - Patient discharged Performed By: #### L 100.0100, L500.2500 ####[facility] [address] [place], [address] GAP Normal 5-15 [facility] Comment on above: Result Comment: Canc elled via OM: Order cancelled - Patient discharged Performed By: #### L 100.0100, L500.2500 ####[facility] [address] [place], [address] GLU Normal 74-106 [facility] Comment on above: Result Comment: Canc elled via OM: Order cancelled - Patient discharged Performed By: #### L 100.0100, L500.2500 ####[facility] [address] [place], [address] Potassium Normal 3.5-5.1 [facility] Comment on above: Result Comment: Canc elled via OM: Order cancelled - Patient discharged Performed By: #### L 100.0100, L500.2500 ####[facility] [address] [place], [address] Basic Metabolic Profile (BMP) Normal 136-145 [facility] Comment on above: Result Comment: Canc elled via OM: Order cancelled - Patient discharged Performed By: #### L 100.0100, L500.2500 ####[facility] [address] [place], [address] CBC W/Diff, Automatedon 01-0 Absolute Neut Normal 2.0-7.7 [facility] Comment on above: Result Comment: Canc elled via OM: Order cancelled - Patient discharged Performed By: #### L 100.0100, L500.2500 ####[facility] [address] [place], [address] HCT Normal 37-47 [facility] Comment on above: Result Comment: Canc elled via OM: Order cancelled - Patient discharged Performed By: #### L 100.0100, L500.2500 ####[facility] [address] [place], [address] HGB Normal 12.0-15.0 [facility] Comment on above: Result Comment: Canc elled via OM: Order cancelled - Patient discharged Performed By: #### L 100.0100, L500.2500 ####[facility] [address] [place], [address] MCH Normal 27.0-32.0 [facility] Comment on above: Result Comment: Canc elled via OM: Order cancelled - Patient discharged Performed By: #### L 100.0100, L500.2500 ####[facility] [address] [place], [address] MCHC Normal 32-36 [facility] Comment on above: Result Comment: Canc elled via OM: Order cancelled - Patient discharged Performed By: #### L 100.0100, L500.2500 ####[facility] [address] [place], [address] MCV Normal 81-99 [facility] Comment on above: Result Comment: Canc elled via OM: Order cancelled - Patient discharged Performed By: #### L 100.0100, L500.2500 ####[facility] [address] [place], [address] NEUT% Normal 47-70 [facility] Comment on above: Result Comment: Canc elled via OM: Order cancelled - Patient discharged Performed By: #### L 100.0100, L500.2500 ####[facility] [address] [place], [address] PLT Normal 150-450 [facility] Comment on above: Result Comment: Canc elled via OM: Order cancelled - Patient discharged Performed By: #### L 100.0100, L500.2500 ####[facility] [address] [place], [address] RBC Normal 4.2-5.4 [facility] Comment on above: Result Comment: Canc elled via OM: Order cancelled - Patient discharged Performed By: #### L 100.0100, L500.2500 ####[facility] [address] [place], [address] RDW CV Normal 11.6-14.6 [facility] Comment on above: Result Comment: Canc elled via OM: Order cancelled - Patient discharged Performed By: #### L 100.0100, L500.2500 ####[facility] [address] [place], [address] RDW SD Normal 35.1-43.9 [facility] Comment on above: Result Comment: Canc elled via OM: Order cancelled - Patient discharged Performed By: #### L 100.0100, L500.2500 ####[facility] [address] [place], [address] WBC Normal 4.4-11.0 [facility] Comment on above: Result Comment: Canc elled via OM: Order cancelled - Patient discharged Performed By: #### L 100.0100, L500.2500 ####[facility] [address] [place], [address] Basic Metabolic Profile (BMP )on 06-14-2024 BUN/CRE 22.1 RATIO High 10-20 [facility] Comment on above: Performed By: #### L 100.0100, L500.2500 ####[facility] [address] [place], [address] CA,Total 9.2 mg/dL Normal 8.5-10.1 [facility] Comment on above: Performed By: #### L 100.0100, L500.2500 ####[facility] [address] [place], [address] Chloride [Moles/Vol] 104 mmol/L Normal 98-107 [facility]; [facility] Work Phone: Comment on above: Performed By: #### L 100.0100, L500.2500 ####[facility] [address] [place], [address] CO2 [Moles/Vol] 29.0 mmol/L Normal 21.0-32.0 [facility]; [facility] Work Phone: Comment on above: Performed By: #### L 100.0100, L500.2500 ####[facility] [address] [place], [place], [address] Creatinine [Mass/Vol] 0.95 mg/dL Normal 0.55-1.02 [facility]; [facility] Work Phone: Comment on above: Result Comment: The validity of the calculated GFR GFRAA in patients over70 years has not been determined. Clinical correlation isessential. Performed By: #### L 100.0100, L500.2500 ####[facility] [address] [place], [address] ECRCL 32.19 ml/min Normal [facility]; [facility] Work Phone: Comment on above: Performed By: #### L 100.0100, L500.2500 ####[facility] [address] [place], [address] EST GFR - AA 72 mL/min Normal >60 [facility]; [facility] Work Phone: Comment on above: Result Comment: Afri can Gambian GFR Calc Performed By: #### L 100.0100, L500.2500 ####[facility] [address] [place], [address] GAP 4 Low 5-15 [facility]; [facility] Work Phone: Comment on above: Performed By: #### L 100.0100, L500.2500 ####[facility] [address] [place], [address] GFR/1.73 sq M.predicted among non-blacks MDRD (S/P/Bld) [Vol rate/Area] 60 mL/min/{1.73_m2} Normal >60 [facility]; [facility] Work Phone: Comment on above: Result Comment: Non- GFR Calc Performed By: #### L 100.0100, L500.2500 ####[facility] [address] [place], [address] Glucose [Mass/Vol] 99 mg/dL Normal 74-106 [facility]; [facility] Work Phone: Comment on above: Performed By: #### L 100.0100, L500.2500 ####[facility] [address] [place], [address] Potassium [Moles/Vol] 3.2 mmol/L Low 3.5-5.1 [facility]; [facility] Work Phone: Comment on above: Performed By: #### L 100.0100, L500.2500 ####[facility] [address] [place], [address] Sodium [Moles/Vol] 137 mmol/L Normal 136-145 [facility]; [facility] Work Phone: Comment on above: Performed By: #### L 100.0100, L500.2500 ####[facility] [address] [place], [address] Urea nitrogen [Mass/Vol] 21 mg/dL High 7-18 [facility].; [facility] Work Phone: Comment on above: Performed By: #### L 100.0100, L500.2500 ####[facility] [address] [place], [address] CBC W/Diff, Automatedon 12-3 Absolute Lymph 1.57 X10 3/uL Normal 0.83-4.51 [facility] Comment on above: Performed By: #### L 100.0100, L500.2500 ####[facility] [address] [place], [address] Absolute Neut 6.5 X10 3/uL Normal 2.0-7.7 [facility] Comment on above: Performed By: #### L 100.0100, L500.2500 ####[facility] [address] [place], [address] Basophils/100 WBC (Bld) 0.3 % Normal 0-1 [facility]; [facility] Work Phone: Comment on above: Performed By: #### L 100.0100, L500.2500 ####[facility] [address] [place], [address] Eosinophils/100 WBC (Bld) 1.8 % Normal 0-5 [facility]; [facility] Work Phone: Comment on above: Performed By: #### L 100.0100, L500.2500 ####[facility] [address] [place], [address] Erythrocyte distribution width (RBC) [Ratio] 14.3 % Normal 11.6-14.6 [facility]; [facility] Work Phone: Comment on above: Performed By: #### L 100.0100, L500.2500 ####[facility] [address] [place], [place], [phone] Hematocrit (Bld) [Volume fraction] 34.3 % Low 37-47 [facility]; [facility] Work Phone: Comment on above: Performed By: #### L 100.0100, L500.2500 ####[facility] [address] [place], [place], [phone] Hemoglobin (Bld) [Mass/Vol] 10.4 g/dL Low 12.0-15.0 [facility]; [facility] Work Phone: Comment on above: Performed By: #### L 100.0100, L500.2500 ####[facility] [address] [place], [place], [address] IG% 0.900 Normal 0.0-0.9 [facility]; [facility] Work Phone: Comment on above: Result Comment: IG% - Immature Granulocytes (promyelocytes, myelocytes andmetamyelocytes) > 1% indicates that a LEFT SHIFT is Present. Performed By: #### L 100.0100, L500.2500 ####[facility] [address] [place], [address] Lymphocytes/100 WBC (Bld) 16.3 % Low 19-41 [facility]; [facility] Work Phone: Comment on above: Performed By: #### L 100.0100, L500.2500 ####[facility] [address] [place], [address] MCH (RBC) [Entitic mass] 26.0 pg Low 27.0-32.0 [facility]; [facility] Work Phone: Comment on above: Performed By: #### L 100.0100, L500.2500 ####[facility] [address] [place], [address] MCHC (RBC) [Mass/Vol] 30.3 g/dL Low 32-[address] [facility]; [facility] Work Phone: Comment on above: Performed By: #### L 100.0100, L500.2500 ####[facility] [address] [place], [place], [phone] MCV (RBC) [Entitic vol] 85.8 fL Normal 81-99 [facility]; [facility] Work Phone: Comment on above: Performed By: #### L 100.0100, L500.2500 ####[facility] [address] [place], [address] Monocytes/100 WBC (Bld) 13.2 % High 0-10 [facility]; [facility] Work Phone: Comment on above: Performed By: #### L 100.0100, L500.2500 ####[facility] [address] [place], [address] Neutrophils/100 WBC (Bld) 67.5 % Normal 47-70 [facility]; [facility] Work Phone: Comment on above: Performed By: #### L 100.0100, L500.2500 ####[facility] [address] [place], [address] Nucleated RBC (Bld) [#/Vol] 0 10*3/uL Normal 0-5 [facility]; [facility] Work Phone: Comment on above: Performed By: #### L 100.0100, L500.2500 ####[facility] [address] [place], [address] Platelet mean volume (Bld) [Entitic vol] 8.7 fL Normal 6.2-12.0 [facility]; [facility] Work Phone: Comment on above: Performed By: #### L 100.0100, L500.2500 ####[facility] [address] [place], [address] Platelets (Bld) [#/Vol] 401 10*3/uL Normal 150-450 [facility]; [facility] Work Phone: Comment on above: Performed By: #### L 100.0100, L500.2500 ####[facility] [address] [place], [address] RBC (Bld) [#/Vol] 4.00 10*6/uL Low 4.2-5.4 [facility]; [facility] Work Phone: Comment on above: Performed By: #### L 100.0100, L500.2500 ####[facility] [address] [place], [address] RDW SD 44.6 fL High 35.1-43.9 [facility]; [facility] Work Phone: Comment on above: Performed By: #### L 100.0100, L500.2500 ####[facility] [address] [place], [place], [phone] WBC (Bld) [#/Vol] 9.6 10*3/uL Normal 4.4-11.0 [email or web address].; [email or web address] Work Phone: Comment on above: Performed By: #### L 100.0100, L500.2500 ####[facility] [address] [facility] [place], [place], [id number] Laboratory - Chemistry and C hemistry - challengeon 06-14-2024 Magnesium [Mass/Vol] 9.2 mg/dL Normal 8.5 - 1 0.1 mg/dL [email or web address].; [email or web address] Work Phone: No Panel Informationon 06-14 Absolute Lymph 1.57 {X10_3/uL} Normal 0.83 - 4.51 {X10_3/uL} [email or web address]; [email or web address] Work Phone: Absolute Neut 6.5 {X10_3/uL} Normal 2.0 - 7.7 {X10_3/uL} [email or web address].; [email or web address] Work Phone: BUN/CRE 22.1 {RATIO} Abnormal 10 - 20 {RATIO} [email or web address]; [email or web address] Work Phone: MICHAEL w/ Reflex Mult Confirmon 06-13-2024 MICHAEL TABLE TNP Normal [facility] Comment on above: Order Comment: PT. R EFUSED BLOOD DRAW. SON ASKED IF ID COME BACK LATER. Performed By: #### L 4600.0100, L505.7010, L3100.5450, L3300.1200, L3500.3600 ####[facility] [address] [place], [place], [id number] 12 Lead EKGon 06-11-2024 12 Lead EKG Normal [facility] L501.4020on 06-11-2024 TROPONIN-I HS 25 pg/mL Normal 3.0-54.0 [facility].; [facility] Work Phone: Comment on above: Order Comment: 'TROP ' Serial specimen #1, #2 or #3: 3 Result Comment: Plea se Note: New Test Units and Gender Specific Reference Ranges. For more information see Policy Stat Procedure [place] High Sensitivity Troponin (TNIH) and attachments. Performed By: #### L 501.4020 ####[facility] [address] [facility] [address] [place], [place], [id number] TROPONIN-I HS 21 pg/mL Normal 3.0-54.0 [facility]; [facility] Work Phone: Comment on above: Order Comment: 'TROP ' Serial specimen #1, #2 or #3: 2 Result Comment: Plea se Note: New Test Units and Gender Specific Reference Ranges. For more information see Policy Stat Procedure [place] High Sensitivity Troponin (TNIH) and attachments. Performed By: #### L 501.4020 ####[facility] [address] [place], [place], [address] TROPONIN-I HS 23 pg/mL Normal 3.0-54.0 [facility]; [facility]. Work Phone: Comment on above: Order Comment: 'TROP ' Serial specimen #1, #2 or #3: 1 Result Comment: Plea se Note: New Test Units and Gender Specific Reference Ranges. For more information see Policy Stat Procedure [place] High Sensitivity Troponin (TNIH) and attachments. Performed By: #### L 501.4020 ####[facility] [address] [place], [place], [address] No Panel Informationon 06-10 MICHAEL TABLE [facility] Work Phone: MICHAEL,DIRECT Negative [facility].; [facility] Work Phone: ANTI-CENT B AB [facility].; [facility] Work Phone: ANTI-DNA (DS)AB [facility].; [facility] Work Phone: ANTI-JULIA-1 [facility].; [facility] Work Phone: ANTI-SS-A [facility].; [facility] Work Phone: ANTI-SS-B [facility].; [facility] Work Phone: ANTICHROMATIN [facility].; [facility] Work Phone: ANTISCLERODERM [facility].; [facility] Work Phone: Asp. flavus Negative [facility].; [facility] Work Phone: Asp. fumigatus Negative [facility].; [facility] Work Phone: Asp. niger Negative [facility].; [facility]. Work Phone: Atypical pANCA <1:20 Normal [facility].; [facility], [facility]. Work Phone: CCP IgG Ab. 8 {units} Normal 0 - 19 {units} [facility].; [facility]. Work Phone: Cytoplasmic Ab <1:20 Normal [facility].; [facility]. Work Phone: Perinuclear Ab. <1:20 Normal [facility].; [facility], [facility]. Work Phone: HEALTH TECHNICAL WRITER Ab Normal [facility].; [facility]. Work Phone: CORTES Ab Normal [facility].; [facility]. Work Phone: Quantiferon TB-Gold+on 06-10 QFT MITOGEN SARAH > 10.00 Normal . [facility] Comment on above: Performed By: #### L 3400.8000 ####[facility] [address] [place], [address] QFT NIL VALUE 0.08 IU/mL Normal . [facility] Comment on above: Performed By: #### L 3400.8000 ####[facility] [address] [place], [address] QFT TB GOLD+ Comment Normal . [facility] Comment on above: Result Comment: Sarmad tiFERON-TB [...] the test. Performed By: #### L 3400.8000 ####[facility] [address] [place], [address] QFT TB POS CRIT Negative Normal Negative [facility] Comment on above: Result Comment: No r [...] the productionof interferon gamma. Chemiluminescence immunoassaymethodologyPerformed at: [facility] [address] [id number] Director: Curtis Rubio PhD, Phone: [phone] Performed By: #### L 3400.8000 ####[facility] [address] [place], [address] QFT TB1+ AG SARAH 0.08 IU/mL Normal . [facility] Comment on above: Performed By: #### L 3400.8000 ####[facility] [address] [place], [address] QFT TB2+ AG SARAH 0.08 IU/mL Normal . [facility] Comment on above: Performed By: #### L 3400.8000 ####[facility] [address] [place], [address] Rheumatoid Factoron 06-10-20 24 RHEUMATOID FAC < 10.0 Normal <15 [facility]; [facility] Work Phone: Comment on above: Order Comment: PT. R EFUSED BLOOD DRAW. SON ASKED IF ID COME BACK LATER.PT REFUSED BLOOD DRAW AT NOON. NURSE WAS INFORMED WILL ADDTO AM DRAW. Performed By: #### L 4600.0100, L505.7010, L3100.5450, L3300.1200, L3500.3600 ####[facility] [address] [place], [address] Consultation - Intensiviston 06-09-2024 Consultation - Coil Wrapper Normal [facility] Basic Metabolic Profile (BMP )on 06-08-2024 BUN/CRE 17.3 RATIO Normal 10-20 [facility] Comment on above: Performed By: #### L 501.5200, L300.3900, L501.2300, L500.2500, L100.0100, L501.9520, L500.3400, L500.4050 ####[facility] [address] [place], [place], [phone] CA,Total 8.6 mg/dL Normal 8.5-10.1 [facility] Comment on above: Performed By: #### L 501.5200, L300.3900, L501.2300, L500.2500, L100.0100, L501.9520, L500.3400, L500.4050 ####[facility] [address] [place], [place], [address]([phone] Chloride [Moles/Vol] 105 mmol/L Normal 98-107 [facility]; [facility] Work Phone: Comment on above: Performed By: #### L 501.5200, L300.3900, L501.2300, L500.2500, L100.0100, L501.9520, L500.3400, L500.4050 ####[facility] [address] [place], [place], [phone] CO2 [Moles/Vol] 27.0 mmol/L Normal 21.0-32.0 [facility]; [facility] Work Phone: Comment on above: Performed By: #### L 501.5200, L300.3900, L501.2300, L500.2500, L100.0100, L501.9520, L500.3400, L500.4050 ####[facility] [address] [place], [place], [phone] Creatinine [Mass/Vol] 0.75 mg/dL Normal 0.55-1.[address] [facility]; [facility] Work Phone: Comment on above: Result Comment: The validity of the calculated GFR GFRAA in patients over70 years has not been determined. Clinical correlation isessential. Performed By: #### L 501.5200, L300.3900, L501.2300, L500.2500, L100.0100, L501.9520, L500.3400, L500.4050 ####[facility] [address] [place], [place], [phone] ECRCL 38.23 ml/min Normal [facility]; [facility] Work Phone: Comment on above: Performed By: #### L 501.5200, L300.3900, L501.2300, L500.2500, L100.0100, L501.9520, L500.3400, L500.4050 ####[facility] [address] [place], [place], [id number] EST GFR - AA 94 mL/min Normal >60 [facility]; [facility] Work Phone: Comment on above: Result Comment: Afri can Gambian GFR Calc Performed By: #### L 501.5200, L300.3900, L501.2300, L500.2500, L100.0100, L501.9520, L500.3400, L500.4050 ####[facility] [address] [place], [place], [phone] GAP 6 Normal 5-15 [facility]; [facility] Work Phone: Comment on above: Performed By: #### L 501.5200, L300.3900, L501.2300, L500.2500, L100.0100, L501.9520, L500.3400, L500.4050 ####[facility] [address] [place], [address] GFR/1.73 sq M.predicted among non-blacks MDRD (S/P/Bld) [Vol rate/Area] 78 mL/min/{1.73_m2} Normal >60 [facility]; [facility] Work Phone: Comment on above: Result Comment: Non- GFR Calc Performed By: #### L 501.5200, L300.3900, L501.2300, L500.2500, L100.0100, L501.9520, L500.3400, L500.4050 ####[facility] [address] [place], [address] Glucose [Mass/Vol] 84 mg/dL Normal 74-106 [facility]; [facility] Work Phone: Comment on above: Performed By: #### L 501.5200, L300.3900, L501.2300, L500.2500, L100.0100, L501.9520, L500.3400, L500.4050 ####[facility] [address] [place], [place], [phone] Potassium [Moles/Vol] 3.6 mmol/L Normal 3.5-5.1 [facility]; [facility] Work Phone: Comment on above: Performed By: #### L 501.5200, L300.3900, L501.2300, L500.2500, L100.0100, L501.9520, L500.3400, L500.4050 ####[facility] [address] [place], [place], [address] Sodium [Moles/Vol] 138 mmol/L Normal 136-145 [facility]; [facility] Work Phone: Comment on above: Performed By: #### L 501.5200, L300.3900, L501.2300, L500.2500, L100.0100, L501.9520, L500.3400, L500.4050 ####[facility] [address] [place], [place], [phone] Urea nitrogen [Mass/Vol] 13 mg/dL Normal 7-18 [facility]; [facility] Work Phone: Comment on above: Performed By: #### L 501.5200, L300.3900, L501.2300, L500.2500, L100.0100, L501.9520, L500.3400, L500.4050 ####[facility] [address] [place], [place], [address] CBC W/Diff, Automatedon 12- Absolute Lymph 1.28 X10 3/uL Normal 0.83-4.51 [facility] Comment on above: Performed By: #### L 501.5200, L300.3900, L501.2300, L500.2500, L100.0100, L501.9520, L500.3400, L500.4050 ####[facility] [address] [place], [address] Absolute Neut 3.9 X10 3/uL Normal 2.0-7.7 [facility] Comment on above: Performed By: #### L 501.5200, L300.3900, L501.2300, L500.2500, L100.0100, L501.9520, L500.3400, L500.4050 ####[facility] [facility] [address] [place], [address] Basophils/100 WBC (Bld) 0.3 % Normal 0-1 [facility]; [facility] Work Phone: Comment on above: Performed By: #### L 501.5200, L300.3900, L501.2300, L500.2500, L100.0100, L501.9520, L500.3400, L500.4050 ####[facility] [address] [facility] [place], [place], [phone] Eosinophils/100 WBC (Bld) 3.2 % Normal 0-5 [facility]; [facility] Work Phone: Comment on above: Performed By: #### L 501.5200, L300.3900, L501.2300, L500.2500, L100.0100, L501.9520, L500.3400, L500.4050 ####[facility] [address] [facility] [place], [place], [phone] Erythrocyte distribution width (RBC) [Ratio] 14.4 % Normal 11.6-14.6 [facility]; [facility] Work Phone: Comment on above: Performed By: #### L 501.5200, L300.3900, L501.2300, L500.2500, L100.0100, L501.9520, L500.3400, L500.4050 ####[facility] [address] [facility] [place], [place], [phone] Hematocrit (Bld) [Volume fraction] 31.3 % Low 37-47 [facility]; [facility] Work Phone: Comment on above: Performed By: #### L 501.5200, L300.3900, L501.2300, L500.2500, L100.0100, L501.9520, L500.3400, L500.4050 ####[facility] [address] [facility] [place], [place], [phone] Hemoglobin (Bld) [Mass/Vol] 9.4 g/dL Low 12.0-15.0 [facility]; [facility] Work Phone: Comment on above: Performed By: #### L 501.5200, L300.3900, L501.2300, L500.2500, L100.0100, L501.9520, L500.3400, L500.4050 ####[facility] [address] [facility] [place], [place], [phone] IG% 1.000 High 0.0-0.9 [facility]; [facility] Work Phone: Comment on above: Result Comment: IG% - Immature Granulocytes (promyelocytes, myelocytes andmetamyelocytes) > 1% indicates that a LEFT SHIFT is Present. Performed By: #### L 501.5200, L300.3900, L501.2300, L500.2500, L100.0100, L501.9520, L500.3400, L500.4050 ####[facility] [place], [address] Lymphocytes/100 WBC (Bld) 20.7 % Normal 19-41 [facility]; [facility] Work Phone: Comment on above: Performed By: #### L 501.5200, L300.3900, L501.2300, L500.2500, L100.0100, L501.9520, L500.3400, L500.4050 ####[facility] [address] [place], [place], [phone] MCH (RBC) [Entitic mass] 25.5 pg Low 27.0-32.0 [facility]; [facility] Work Phone: Comment on above: Performed By: #### L 501.5200, L300.3900, L501.2300, L500.2500, L100.0100, L501.9520, L500.3400, L500.4050 ####[facility] [address] [facility] [place], [address] MCHC (RBC) [Mass/Vol] 30.0 g/dL Low 32-[address] [facility]; [facility] Work Phone: Comment on above: Performed By: #### L 501.5200, L300.3900, L501.2300, L500.2500, L100.0100, L501.9520, L500.3400, L500.4050 ####[facility] [address] [facility] [place], [address] MCV (RBC) [Entitic vol] 84.8 fL Normal 81-99 [facility]; [facility] Work Phone: Comment on above: Performed By: #### L 501.5200, L300.3900, L501.2300, L500.2500, L100.0100, L501.9520, L500.3400, L500.4050 ####[facility] [address] [place], [place], [phone] Monocytes/100 WBC (Bld) 12.0 % High 0-10 [facility]; [facility] Work Phone: Comment on above: Performed By: #### L 501.5200, L300.3900, L501.2300, L500.2500, L100.0100, L501.9520, L500.3400, L500.4050 ####[facility] [address] [place], [place], [phone] Neutrophils/100 WBC (Bld) 62.8 % Normal 47-70 [facility]; [facility] Work Phone: Comment on above: Performed By: #### L 501.5200, L300.3900, L501.2300, L500.2500, L100.0100, L501.9520, L500.3400, L500.4050 ####[facility] [address] [place], [place], [phone] Nucleated RBC (Bld) [#/Vol] 0 10*3/uL Normal 0-5 [facility]; [facility] Work Phone: Comment on above: Performed By: #### L 501.5200, L300.3900, L501.2300, L500.2500, L100.0100, L501.9520, L500.3400, L500.4050 ####[facility] [address] [place], [phone] Platelet mean volume (Bld) [Entitic vol] 8.9 fL Normal 6.2-12.0 [email or web address].; [facility]. Work Phone: Comment on above: Performed By: #### L 501.5200, L300.3900, L501.2300, L500.2500, L100.0100, L501.9520, L500.3400, L500.4050 ####[facility] [address] [place], [place], [phone] Platelets (Bld) [#/Vol] 342 10*3/uL Normal 150-450 [facility]; [facility] Work Phone: Comment on above: Performed By: #### L 501.5200, L300.3900, L501.2300, L500.2500, L100.0100, L501.9520, L500.3400, L500.4050 ####[facility] [address] [place], [place], [phone] RBC (Bld) [#/Vol] 3.69 10*6/uL Low 4.2-5.4 [facility].; [facility]. Work Phone: Comment on above: Performed By: #### L 501.5200, L300.3900, L501.2300, L500.2500, L100.0100, L501.9520, L500.3400, L500.4050 ####[facility] [address] [place], [place], [phone] RDW SD 44.8 fL High 35.1-43.9 [facility].; [facility]. Work Phone: Comment on above: Performed By: #### L 501.5200, L300.3900, L501.2300, L500.2500, L100.0100, L501.9520, L500.3400, L500.4050 ####[facility] [address] [place], [place], [phone] WBC (Bld) [#/Vol] 6.2 10*3/uL Normal 4.4-11.0 [facility]; [facility] Work Phone: Comment on above: Performed By: #### L 501.5200, L300.3900, L501.2300, L500.2500, L100.0100, L501.9520, L500.3400, L500.4050 ####[facility] [address] [place], [address] Comprehensive Metabolic Prof ilon 06-08-2024 Albumin/Globulin [Mass ratio] 0.7 {ratio} Low 0.9-2.4 [facility]; [facility] Work Phone: Comment on above: Performed By: #### L 501.5200, L300.3900, L501.2300, L500.2500, L100.0100, L501.9520, L500.3400, L500.4050 ####[facility] [address] [place], [place], [phone] Laboratory - Chemistry and C hemistry - challengeon 06-08-2024 Magnesium [Mass/Vol] 8.6 mg/dL Normal 8.5 - 1 0.1 mg/dL [facility]; [facility] Work Phone: Liver Profileon 06-08-2024 Albumin [Mass/Vol] 2.5 g/dL Low 3.2-5.0 [facility]; [email or web address] Work Phone: Comment on above: Performed By: #### L 501.5200, L300.3900, L501.2300, L500.2500, L100.0100, L501.9520, L500.3400, L500.4050 ####[facility] [address] [place], [place], [phone] ALK P 96 U/L Normal 45-117 [facility]; [email or web address] Work Phone: Comment on above: Performed By: #### L 501.5200, L300.3900, L501.2300, L500.2500, L100.0100, L501.9520, L500.3400, L500.4050 ####[facility] [address] [place], [place], [phone] ALT [Catalytic activity/Vol] 17 U/L Normal 13-56 [facility]; [facility] Work Phone: Comment on above: Performed By: #### L 501.5200, L300.3900, L501.2300, L500.2500, L100.0100, L501.9520, L500.3400, L500.4050 ####[facility] [address] [place], [place], [phone] AST [Catalytic activity/Vol] 15 U/L Normal 15-37 [facility]; [facility] Work Phone: Comment on above: Performed By: #### L 501.5200, L300.3900, L501.2300, L500.2500, L100.0100, L501.9520, L500.3400, L500.4050 ####[facility] [address] [place], [address] Bilirubin [Mass/Vol] 0.30 mg/dL Normal 0.20-1.00 [facility]; [facility] Work Phone: Comment on above: Result Comment: For patients on eltrombopag therapy, use of Dimension [place] TBIL is not recommended. Performed By: #### L 501.5200, L300.3900, L501.2300, L500.2500, L100.0100, L501.9520, L500.3400, L500.4050 ####[facility] [address] [place], [address] Bilirubin.direct [Mass/Vol] 0.09 mg/dL Normal 0.00-0.30 [facility]; [facility] Work Phone: Comment on above: Performed By: #### L 501.5200, L300.3900, L501.2300, L500.2500, L100.0100, L501.9520, L500.3400, L500.4050 ####[facility] [address] [place], [address] Globulin (S) [Mass/Vol] 3.4 g/dL Normal 2.2-4.2 [facility]; [facility] Work Phone: Comment on above: Performed By: #### L 501.5200, L300.3900, L501.2300, L500.2500, L100.0100, L501.9520, L500.3400, L500.4050 ####[facility] [address] [place], [address] T PROT 5.9 g/dL Low 6.4-8.2 [facility]; [facility] Work Phone: Comment on above: Performed By: #### L 501.5200, L300.3900, L501.2300, L500.2500, L100.0100, L501.9520, L500.3400, L500.4050 ####[facility] [address] [facility] [facility] [place], [place], [phone] Magnesiumon 06-08-2024 Magnesium [Mass/Vol] 1.9 mg/dL Normal 1.6-2.6 [facility].; [email or web address]. Work Phone: Comment on above: Performed By: #### L 501.5200, L300.3900, L501.2300, L500.2500, L100.0100, L501.9520, L500.3400, L500.4050 ####[facility] [address] [place], [place], [phone] No Panel Informationon 06-08 Absolute Lymph 1.28 {X10_3/uL} Normal 0.83 - 4.51 {X10_3/uL} [facility].; [email or web address]. Work Phone: Absolute Neut 3.9 {X10_3/uL} Normal 2.0 - 7.7 {X10_3/uL} [facility].; [email or web address]. Work Phone: BUN/CRE 17.3 {RATIO} Normal 10 - 20 {RATIO} [facility].; [email or web address]. Work Phone: QFT MITOGEN SARAH > 10.00 Normal [facility].; [email or web address]. Work Phone: QFT NIL VALUE 0.08 {IU/mL} Normal [facility].; [facility]. Work Phone: QFT TB GOLD+ Comment Normal [facility].; [facility]. Work Phone: QFT TB POS CRIT Negative Normal [facility].; [facility]. Work Phone: QFT TB1+ AG SARAH 0.08 {IU/mL} Normal [facility].; [facility]. Work Phone: QFT TB2+ AG SARAH 0.08 {IU/mL} Normal [facility].; [facility], [facility]. Work Phone: TSH 1.990 {uIU/mL} Normal 0.358 - 3.740 {uIU/mL} [facility].; [facility] Work Phone: Phosphoruson 06-08-2024 Phosphate [Mass/Vol] 3.3 mg/dL Normal 2.5-4.9 [facility]; [facility] Work Phone: Comment on above: Performed By: #### L 501.5200, L300.3900, L501.2300, L500.2500, L100.0100, L501.9520, L500.3400, L500.4050 ####[facility] [address] [place], [address] Prothrombin Time w/INRon INR Coag (PPP) [Relative time] 1.1 {INR} Normal [facility].; [facility]. Work Phone: Comment on above: Performed By: #### L 501.5200, L300.3900, L501.2300, L500.2500, L100.0100, L501.9520, L500.3400, L500.4050 ####[facility] [address] [place], [place], [phone] PT Coag (PPP) [Time] 13.7 s Normal 11.7-14.9 [facility]; [email or web address] Work Phone: Comment on above: Performed By: #### L 501.5200, L300.3900, L501.2300, L500.2500, L100.0100, L501.9520, L500.3400, L500.4050 ####[facility] [address] [place], [place], [phone] Thyroid Stim Hormone (TSH)on 06-08-2024 TSH 1.990 uIU/mL Normal 0.358-3.74 0 [facility] Comment on above: Performed By: #### L 501.5200, L300.3900, L501.2300, L500.2500, L100.0100, L501.9520, L500.3400, L500.4050 ####[facility] [address] [place], [place], [phone] 12 Lead EKGon 06-07-2024 12 Lead EKG Normal [facility] Basic Metabolic Profile (BMP )on 06-07-2024 BUN/CRE 14.4 RATIO Normal 10-20 [facility] Comment on above: Order Comment: 'TROP ' Serial specimen #1, #2 or #3: 1 Performed By: #### L 100.0100, L501.2450, L503.6005, L500.2500, L300.3900, L300.4310, L501.4020, L500.3400 ####[facility] [address] [place], [place], [phone] CA,Total 8.8 mg/dL Normal 8.5-10.1 [facility] Comment on above: Order Comment: 'TROP ' Serial specimen #1, #2 or #3: 1 Performed By: #### L 100.0100, L501.2450, L503.6005, L500.2500, L300.3900, L300.4310, L501.4020, L500.3400 ####[facility] [address] [place], [place], [phone] Chloride [Moles/Vol] 104 mmol/L Normal 98-107 [facility]; [facility] Work Phone: Comment on above: Order Comment: 'TROP ' Serial specimen #1, #2 or #3: 1 Performed By: #### L 100.0100, L501.2450, L503.6005, L500.2500, L300.3900, L300.4310, L501.4020, L500.3400 ####[facility] [address] [place], [place], [phone] CO2 [Moles/Vol] 28.0 mmol/L Normal 21.0-32.0 [facility]; [facility] Work Phone: Comment on above: Order Comment: 'TROP ' Serial specimen #1, #2 or #3: 1 Performed By: #### L 100.0100, L501.2450, L503.6005, L500.2500, L300.3900, L300.4310, L501.4020, L500.3400 ####[facility] [address] [place], [address] Creatinine [Mass/Vol] 0.97 mg/dL Normal 0.55-1.02 [facility]; [facility] Work Phone: Comment on above: Order Comment: 'TROP ' Serial specimen #1, #2 or #3: 1 Result Comment: The validity of the calculated GFR GFRAA in patients over70 years has not been determined. Clinical correlation isessential. Performed By: #### L 100.0100, L501.2450, L503.6005, L500.2500, L300.3900, L300.4310, L501.4020, L500.3400 ####[facility] [address] [place], [place], [phone] EST GFR - AA 71 mL/min Normal >60 [facility]; [email or web address] Work Phone: Comment on above: Order Comment: 'TROP ' Serial specimen #1, #2 or #3: 1 Result Comment: Afri can Gambian GFR Calc Performed By: #### L 100.0100, L501.2450, L503.6005, L500.2500, L300.3900, L300.4310, L501.4020, L500.3400 ####[facility] [address] [place], [place], [phone] GAP 6 Normal 5-15 [facility]; [email or web address] Work Phone: Comment on above: Order Comment: 'TROP ' Serial specimen #1, #2 or #3: 1 Performed By: #### L 100.0100, L501.2450, L503.6005, L500.2500, L300.3900, L300.4310, L501.4020, L500.3400 ####[facility] [address] [place], [address] GFR/1.73 sq M.predicted among non-blacks MDRD (S/P/Bld) [Vol rate/Area] 58 mL/min/{1.73_m2} Low >60 [email or web address]; [facility] Work Phone: Comment on above: Order Comment: 'TROP ' Serial specimen #1, #2 or #3: 1 Result Comment: Non- GFR Calc Performed By: #### L 100.0100, L501.2450, L503.6005, L500.2500, L300.3900, L300.4310, L501.4020, L500.3400 ####[facility] [address] [place], [phone] Glucose [Mass/Vol] 88 mg/dL Normal 74-106 [facility].; [facility] Work Phone: Comment on above: Order Comment: 'TROP ' Serial specimen #1, #2 or #3: 1 Performed By: #### L 100.0100, L501.2450, L503.6005, L500.2500, L300.3900, L300.4310, L501.4020, L500.3400 ####[facility] [address] [place], [address] Potassium [Moles/Vol] 4.1 mmol/L Normal 3.5-5.1 [facility]; [facility] Work Phone: Comment on above: Order Comment: 'TROP ' Serial specimen #1, #2 or #3: 1 Result Comment: Slig ht Hemolysis, Result may be falsely increased. Performed By: #### L 100.0100, L501.2450, L503.6005, L500.2500, L300.3900, L300.4310, L501.4020, L500.3400 ####[facility] [address] [place], [place], [phone] Sodium [Moles/Vol] 138 mmol/L Normal 136-145 [facility]; [facility] Work Phone: Comment on above: Order Comment: 'TROP ' Serial specimen #1, #2 or #3: 1 Performed By: #### L 100.0100, L501.2450, L503.6005, L500.2500, L300.3900, L300.4310, L501.4020, L500.3400 ####[facility] [address] [place], [place], [phone] Urea nitrogen [Mass/Vol] 14 mg/dL Normal 7-18 [facility]; [facility] Work Phone: Comment on above: Order Comment: 'TROP ' Serial specimen #1, #2 or #3: 1 Performed By: #### L 100.0100, L501.2450, L503.6005, L500.2500, L300.3900, L300.4310, L501.4020, L500.3400 ####[facility] [address] [place], [place], [phone] Brain/Head without Contrasto n 06-07-2024 Brain/Head without Contrast Normal [facility] CBC W/Diff, Automatedon 05-16 PLT EST ADEQUATE Normal ADEQ [facility]; [facility] Work Phone: Comment on above: Performed By: #### L 100.0100, L501.2450, L503.6005, L500.2500, L300.3900, L300.4310, L501.4020, L500.3400 ####[facility] [address] [place], [place], [phone] Chest 1 View (Portable)on Chest 1 View (Portable) Normal [facility] Chest WITH Contraston 2023 Chest WITH Contrast Normal [facility] Emergency Department Summary on 06-07-2024 Emergency Department Summary Normal [facility] H AND P Exam - Hospitaliston 06-07-2024 H&P Exam - Hospitalist Normal [facility] L501.4020on 06-07-2024 TROPONIN-I HS 9 pg/mL Normal 3.0-54.0 [facility]; [facility] Work Phone: Comment on above: Order Comment: 'TROP ' Serial specimen #1, #2 or #3: 1 Result Comment: Jaguar leigh Note: New Test Units and Gender Specific Reference Ranges. For more information see Policy Stat Procedure [place] High Sensitivity Troponin (TNIH) and attachments. Performed By: #### L 100.0100, L501.2450, L503.6005, L500.2500, L300.3900, L300.4310, L501.4020, L500.3400 ####[facility] [address] [place], [place], [phone] Laboratory - Chemistry and C hemistry - challengeon 06-07-2024 Magnesium [Mass/Vol] 8.8 mg/dL Normal 8.5 - 1 0.1 mg/dL [facility]. Work Phone: Laboratory - Hematology and Cell countson 06-07-2024 Basophils/100 WBC (Bld) 0.6 % Normal 0 - 1 [facility]. Work Phone: Eosinophils/100 WBC (Bld) 2.2 % Normal 0 - 5 [facility].; [facility]. Work Phone: Erythrocyte distribution width (RBC) [Ratio] 14.5 % Normal 11.6 - 14.6 [facility]; [email or web address] Work Phone: Hematocrit (Bld) [Volume fraction] 34.6 % Abnormal 37 - 47 [facility]; [facility] Work Phone: Hemoglobin (Bld) [Mass/Vol] 10.4 g/dL Abnormal 12.0 - 15.0 g/dL [facility]; [facility] Work Phone: Lymphocytes/100 WBC (Bld) 19.7 % Normal 19 - 41 [facility]; [facility] Work Phone: MCH (RBC) [Entitic mass] 25.7 pg Abnormal 27.0 - 32.0 pg [facility]; [facility] Work Phone: MCHC (RBC) [Mass/Vol] 30.1 g/dL Abnormal 32 - 3 6 g/dL [facility]; [facility]. Work Phone: MCV (RBC) [Entitic vol] 85.6 fL Normal 81 - 99 fL [facility]; [facility] Work Phone: Monocytes/100 WBC (Bld) 11.0 % Abnormal 0 - 10 [facility]; [facility] Work Phone: Neutrophils/100 WBC (Bld) 65.9 % Normal 47 - 70 [facility]; [facility] Work Phone: Nucleated RBC (Bld) [#/Vol] 0 10*3/uL Normal 0 - 5 [facility]; [facility] Work Phone: Platelet mean volume (Bld) [Entitic vol] 9.8 fL Normal 6.2 - 12.0 fL [facility]; [facility] Work Phone: RBC (Bld) [#/Vol] 4.04 10*6/uL Abnormal 4.2 - 5.4 {M/mm3} [facility].; [facility]. Work Phone: WBC (Bld) [#/Vol] 6.4 10*3/uL Normal 4.4 - 11.0 K/mm3 [facility].; [facility]. Work Phone: Laboratory - Microbiology an d Antimicrobial susceptibilityon 06-07-2024 Bacteria identified Cx Nom (Unsp spec) 0 SEEN Normal [facility].; [facility]. Work Phone: Laboratory - Specimen inform ationon 06-07-2024 Clarity (U) Clear Normal [facility].; [facility]. Work Phone: Color (U) Yellow Normal [facility].; [facility]. Work Phone: Laboratory - Urinalysison Nitrite Ql (U) Negative Normal [facility].; [facility]. Work Phone: Lactic Acidon 06-07-2024 Lactate [Moles/Vol] 1.1 mmol/L Normal 0.4-1.9 [facility].; [facility]. Work Phone: Comment on above: Order Comment: Y Performed By: #### L 100.0100, L501.2450, L503.6005, L500.2500, L300.3900, L300.4310, L501.4020, L500.3400 ####[facility] [address] [place], [address] Lipaseon 06-07-2024 Lipase [Catalytic activity/Vol] 75 U/L Normal 13-75 [facility].; [email or web address] Work Phone: Comment on above: Order Comment: 'TROP ' Serial specimen #1, #2 or #3: 1 Result Comment: Jaguar leigh note:LIPASE revised reference range effective 22.New Lipase methodology. Expected to produce lower valuesthan the previous assay method.NEW Reference Range: 13 - 75 U/L Performed By: #### L 100.0100, L501.2450, L503.6005, L500.2500, L300.3900, L300.4310, L501.4020, L500.3400 ####[facility] [address] [facility], [address] Liver Profileon 06-07-2024 Albumin [Mass/Vol] 2.7 g/dL Low 3.2-5.0 [facility] [employer]; [email or web address] Work Phone: Comment on above: Order Comment: 'TROP ' Serial specimen #1, #2 or #3: 1 Performed By: #### L 100.0100, L501.2450, L503.6005, L500.2500, L300.3900, L300.4310, L501.4020, L500.3400 ####[facility] [address], [address] ALK P 106 U/L Normal 45-117 [facility]; [facility] Work Phone: Comment on above: Order Comment: 'TROP ' Serial specimen #1, #2 or #3: 1 Performed By: #### L 100.0100, L501.2450, L503.6005, L500.2500, L300.3900, L300.4310, L501.4020, L500.3400 ####[facility] [address] [place], [place], [id number] ALT [Catalytic activity/Vol] 18 U/L Normal 13-56 [facility]; [facility] Work Phone: Comment on above: Order Comment: 'TROP ' Serial specimen #1, #2 or #3: 1 Performed By: #### L 100.0100, L501.2450, L503.6005, L500.2500, L300.3900, L300.4310, L501.4020, L500.3400 ####[facility] [address] [place], [address] AST [Catalytic activity/Vol] 25 U/L Normal 15-37 [facility]; [facility] Work Phone: Comment on above: Order Comment: 'TROP ' Serial specimen #1, #2 or #3: 1 Result Comment: Slig ht Hemolysis, Result may be falsely increased. Performed By: #### L 100.0100, L501.2450, L503.6005, L500.2500, L300.3900, L300.4310, L501.4020, L500.3400 ####[facility] [address] [place], [address] Bilirubin [Mass/Vol] 0.40 mg/dL Normal 0.20-1.00 [facility]; [facility] Work Phone: Comment on above: Order Comment: 'TROP ' Serial specimen #1, #2 or #3: 1 Result Comment: For patients on eltrombopag therapy, use of Dimension [place] TBIL is not recommended. Performed By: #### L 100.0100, L501.2450, L503.6005, L500.2500, L300.3900, L300.4310, L501.4020, L500.3400 ####[facility] [address] [place], [address] Bilirubin.direct [Mass/Vol] 0.08 mg/dL Normal 0.00-0.30 [facility]; [facility] Work Phone: Comment on above: Order Comment: 'TROP ' Serial specimen #1, #2 or #3: 1 Performed By: #### L 100.0100, L501.2450, L503.6005, L500.2500, L300.3900, L300.4310, L501.4020, L500.3400 ####[facility] [address] [place], [address] Globulin (S) [Mass/Vol] 3.9 g/dL Normal 2.2-4.2 [facility]; [facility] Work Phone: Comment on above: Order Comment: 'TROP ' Serial specimen #1, #2 or #3: 1 Performed By: #### L 100.0100, L501.2450, L503.6005, L500.2500, L300.3900, L300.4310, L501.4020, L500.3400 ####[facility] [address] [place], [address] T PROT 6.6 g/dL Normal 6.4-8.2 [facility]; [facility] Work Phone: Comment on above: Order Comment: 'TROP ' Serial specimen #1, #2 or #3: 1 Performed By: #### L 100.0100, L501.2450, L503.6005, L500.2500, L300.3900, L300.4310, L501.4020, L500.3400 ####[facility] [address] [place], [address] M100.678on 06-07-2024 M100.678 Pending SARS-CoV-2 (COVID 19) A Positive A INFLUENZA A Negative INFLUENZA B Negative RSV PCR Negative SARS-CoV-2 (COVID 19 PCR) Normal [facility] Comment on above: Performed By: #### L 400.0001, M100.678 ####[facility] [address] [place], [address] M8200.1000on 06-07-2024 M8200.1000 Normal Reference Ran ge = Negative MRSA DNA Nose Ql ZAID+probe GeneXpert Instrument, PCR method MRSA PCR MRSA NEGATIVE Normal [facility] Comment on above: Performed By: #### M 8200.1000 ####[facility] [address] [place], [address] No Panel Informationon 06-07 Absolute Lymph 1.26 {X10_3/uL} Normal 0.83 - 4.51 {X10_3/uL} [email or web address] Work Phone: Absolute Neut 4.2 {X10_3/uL} Normal 2.0 - 7.7 {X10_3/uL} [facility]. Work Phone: BILIRUBIN URINE Negative Normal [facility].; [email or web address] Work Phone: BUN/CRE 14.4 {RATIO} Normal 10 - 20 {RATIO} [email or web address]. Work Phone: GLUCOSE, UR Normal Normal [facility].; [facility], [employer]. Work Phone: IG% 0.600 Normal 0.0 - 0.9 [email or web address] Work Phone: KETONE UR Negative Normal [facility]; [facility] Work Phone: LEUK ESTERASE Negative Normal [facility].; [facility]. Work Phone: M100.678 See Note Normal [facility].; [facility]. Work Phone: M8200.1000 See Note Normal [facility].; [facility]. Work Phone: OCCULT BLOOD-UR 10 /ul Abnormal [facility]; [facility] Work Phone: pH UR 7.0 Normal 5.0 - 8.0 [facility]; [facility] Work Phone: PLT Normal 150 - 450 K/mm3 [facility]; [facility] Work Phone: PROT DIPSTX Negative Normal [facility]; [facility] Work Phone: RDW SD 44.9 fL Abnormal 35.1 - 43.9 fL [facility]; [facility] Work Phone: SP.GR. DIPSTX 1.010 Normal 1.002 - 1.030 [facility]; [facility] Work Phone: UROBILI Normal Normal [facility]; [facility] Work Phone: Partial Thromboplast Timeon 12-24-2024 aPTT Coag (Bld) [Time] 21.3 s Low 24.1-36.2 [facility].; [facility] Work Phone: Comment on above: Performed By: #### L 100.0100, L501.2450, L503.6005, L500.2500, L300.3900, L300.4310, L501.4020, L500.3400 ####[facility] [address] [place], [address] Prothrombin Time w/INRon INR Coag (PPP) [Relative time] 0.9 {INR} Normal [facility]; [facility] Work Phone: Comment on above: Performed By: #### L 100.0100, L501.2450, L503.6005, L500.2500, L300.3900, L300.4310, L501.4020, L500.3400 ####[facility] [address] [place], [address] PT Coag (PPP) [Time] 12.2 s Normal 11.7-14.9 [facility]; [facility] Work Phone: Comment on above: Performed By: #### L 100.0100, L501.2450, L503.6005, L500.2500, L300.3900, L300.4310, L501.4020, L500.3400 ####[facility] [address] [place], [address] Urinalysis, Completeon 06-07 EPI,SQUAMOUS 0-5 SEEN Normal 5-10 [facility]; [facility] Work Phone: Comment on above: Order Comment: YA CTOR TO SPECIFY Performed By: #### L 400.0001, M100.678 ####[facility] [address] [place], [address] RBC 0-5 SEEN Normal 0-5 [facility].; [facility]. Work Phone: Comment on above: Order Comment: YA CTOR TO SPECIFY Performed By: #### L 400.0001, M100.678 ####[facility] [address] [place], [address] BACTERIA 0 SEEN Normal None Seen [facility] Comment on above: Order Comment: YA CTOR TO SPECIFY Performed By: #### L 400.0001, M100.678 ####[facility] [address] [place], [address] Mucus Ql (Urine sed) 0 SEEN Normal [facility]; [facility]. Work Phone: Comment on above: Order Comment: YA CTOR TO SPECIFY Performed By: #### L 400.0001, M100.678 ####[facility] [address] [place], [address] WBC 0 SEEN Normal 0-5 [facility]; [facility]. Work Phone: Comment on above: Order Comment: AY CTOR TO SPECIFY Performed By: #### L 400.0001, M100.678 ####[facility] [address] [place], [address] CBC W/Diff, Automatedon 12- Absolute Lymph 0.79 X10 3/uL Low 0.83-4.51 [facility] Comment on above: Performed By: #### L 100.0100, L500.4050, L503.6005 ####[facility] [address] [place], [address] Absolute Neut 3.5 X10 3/uL Normal 2.0-7.7 [facility] Comment on above: Performed By: #### L 100.0100, L500.4050, L503.6005 ####[facility] [address] [place], [address] Basophils/100 WBC (Bld) 0.6 % Normal 0-1 [facility]; [facility] Work Phone: Comment on above: Performed By: #### L 100.0100, L500.4050, L503.6005 ####[facility] [address] [place], [address] Eosinophils/100 WBC (Bld) 0.4 % Normal 0-5 [facility]; [facility] Work Phone: Comment on above: Performed By: #### L 100.0100, L500.4050, L503.6005 ####[facility] [address] [place], [address] Erythrocyte distribution width (RBC) [Ratio] 14.6 % Normal 11.6-14.6 [facility]; [facility] Work Phone: Comment on above: Performed By: #### L 100.0100, L500.4050, L503.6005 ####[facility] [address] [place], [address] Hematocrit (Bld) [Volume fraction] 35.5 % Low 37-47 [facility]; [facility] Work Phone: Comment on above: Performed By: #### L 100.0100, L500.4050, L503.6005 ####[facility] [address] [facility] [place], [place], [phone] Hemoglobin (Bld) [Mass/Vol] 10.5 g/dL Low 12.0-15.0 [facility]; [facility] Work Phone: Comment on above: Performed By: #### L 100.0100, L500.4050, L503.6005 ####[facility] [address] [place], [place], [address] IG% 0.400 Normal 0.0-0.9 [facility]; [facility] Work Phone: Comment on above: Result Comment: IG% - Immature Granulocytes (promyelocytes, myelocytes andmetamyelocytes) > 1% indicates that a LEFT SHIFT is Present. Performed By: #### L 100.0100, L500.4050, L503.6005 ####[facility] [address] [place], [place], [phone] Lymphocytes/100 WBC (Bld) 14.9 % Low 19-41 [facility]; [facility] Work Phone: Comment on above: Performed By: #### L 100.0100, L500.4050, L503.6005 ####[facility] [address] [facility] [address] [place], [place], [phone] MCH (RBC) [Entitic mass] 25.5 pg Low 27.0-32.0 [facility]; [facility]. Work Phone: Comment on above: Performed By: #### L 100.0100, L500.4050, L503.6005 ####[facility] [address] [place], [address] MCHC (RBC) [Mass/Vol] 29.6 g/dL Low 32-[address] [facility]; [facility] Work Phone: Comment on above: Performed By: #### L 100.0100, L500.4050, L503.6005 ####[facility] [address] [place], [address] MCV (RBC) [Entitic vol] 86.4 fL Normal 81-99 [facility]; [facility] Work Phone: Comment on above: Performed By: #### L 100.0100, L500.4050, L503.6005 ####[facility] [address] [place], [address] Monocytes/100 WBC (Bld) 18.6 % High 0-10 [facility]; [facility] Work Phone: Comment on above: Performed By: #### L 100.0100, L500.4050, L503.6005 ####[facility] [address] [place], [address] Neutrophils/100 WBC (Bld) 65.1 % Normal 47-70 [facility]; [facility] Work Phone: Comment on above: Performed By: #### L 100.0100, L500.4050, L503.6005 ####[facility] [address] [place], [address] Nucleated RBC (Bld) [#/Vol] 0 10*3/uL Normal 0-5 [facility].; [facility] Work Phone: Comment on above: Performed By: #### L 100.0100, L500.4050, L503.6005 ####[facility] [address] [place], [place], [phone] Platelet mean volume (Bld) [Entitic vol] 8.5 fL Normal 6.2-12.0 [facility].; [facility] Work Phone: Comment on above: Performed By: #### L 100.0100, L500.4050, L503.6005 ####[facility] [address] [place], [place], [phone] Platelets (Bld) [#/Vol] 344 10*3/uL Normal 150-450 [facility]; [facility] Work Phone: Comment on above: Performed By: #### L 100.0100, L500.4050, L503.6005 ####[facility] [address] [facility] [place], [place], [phone] RBC (Bld) [#/Vol] 4.11 10*6/uL Low 4.2-5.4 [facility]; [facility] Work Phone: Comment on above: Performed By: #### L 100.0100, L500.4050, L503.6005 ####[facility] [address] [place], [place], [phone] RDW SD 46.4 fL High 35.1-43.9 [facility].; [facility] Work Phone: Comment on above: Performed By: #### L 100.0100, L500.4050, L503.6005 ####[facility] [address] [place], [address] WBC (Bld) [#/Vol] 5.3 10*3/uL Normal 4.4-11.0 [facility].; [facility] Work Phone: Comment on above: Performed By: #### L 100.0100, L500.4050, L503.6005 ####[facility] [address] [place], [address] Chest PA and Lateralon 05-30 Chest PA and Lateral Normal [facility] Comprehensive Metabolic Prof ilon 05-30-2024 Albumin [Mass/Vol] 3.0 g/dL Low 3.2-5.0 [facility].; [facility] Work Phone: Comment on above: Performed By: #### L 100.0100, L500.4050, L503.6005 ####[facility] [address] [place], [place], [phone] Albumin/Globulin [Mass ratio] 0.8 {ratio} Low 0.9-2.4 [facility]; [facility]. Work Phone: Comment on above: Performed By: #### L 100.0100, L500.4050, L503.6005 ####[facility] [address] [place], [address] ALK P 124 U/L High 45-117 [facility]; [facility]. Work Phone: Comment on above: Performed By: #### L 100.0100, L500.4050, L503.6005 ####[facility] [address] [place], [address] ALT [Catalytic activity/Vol] 15 U/L Normal 13-56 [facility]; [facility] Work Phone: Comment on above: Performed By: #### L 100.0100, L500.4050, L503.6005 ####[facility] [address] [place], [address] AST [Catalytic activity/Vol] 22 U/L Normal 15-37 [facility]; [facility] Work Phone: Comment on above: Performed By: #### L 100.0100, L500.4050, L503.6005 ####[facility] [address] [place], [address] Bilirubin [Mass/Vol] 0.40 mg/dL Normal 0.20-1.00 [facility]; [facility] Work Phone: Comment on above: Result Comment: For patients on eltrombopag therapy, use of Dimension [place] TBIL is not recommended. Performed By: #### L 100.0100, L500.4050, L503.6005 ####[facility] [address] [place], [address] BUN/CRE 13.4 RATIO Normal 10-20 [facility] Comment on above: Performed By: #### L 100.0100, L500.4050, L503.6005 ####[facility] [address] [place], [address] CA,Total 8.9 mg/dL Normal 8.5-10.1 [facility] Comment on above: Performed By: #### L 100.0100, L500.4050, L503.6005 ####[facility] [address] [place], [address] Chloride [Moles/Vol] 105 mmol/L Normal 98-107 [facility]; [facility] Work Phone: Comment on above: Performed By: #### L 100.0100, L500.4050, L503.6005 ####[facility] [address] [place], [address] CO2 [Moles/Vol] 27.0 mmol/L Normal 21.0-32.0 [facility]; [facility] Work Phone: Comment on above: Performed By: #### L 100.0100, L500.4050, L503.6005 ####[facility] [address] [place], [address] Creatinine [Mass/Vol] 1.12 mg/dL High 0.55-1.02 [facility]; [facility] Work Phone: Comment on above: Result Comment: The validity of the calculated GFR GFRAA in patients over70 years has not been determined. Clinical correlation isessential. Performed By: #### L 100.0100, L500.4050, L503.6005 ####[facility] [address] [place], [address] EST GFR - AA 60 mL/min Normal >60 [facility]; [facility] Work Phone: Comment on above: Result Comment: Afri can Gambian GFR Calc Performed By: #### L 100.0100, L500.4050, L503.6005 ####[facility] [address] [place], [place], [phone] GAP 5 Normal 5-15 [email or web address]; [facility] Work Phone: Comment on above: Performed By: #### L 100.0100, L500.4050, L503.6005 ####[facility] [address] [place], [place], [id number] GFR/1.73 sq M.predicted among non-blacks MDRD (S/P/Bld) [Vol rate/Area] 49 mL/min/{1.73_m2} Low >60 [facility]; [facility] Work Phone: Comment on above: Result Comment: Non- GFR Calc Performed By: #### L 100.0100, L500.4050, L503.6005 ####[facility] [address] [place], [place], [phone] Globulin (S) [Mass/Vol] 3.9 g/dL Normal 2.2-4.2 [facility]; [email or web address] Work Phone: Comment on above: Performed By: #### L 100.0100, L500.4050, L503.6005 ####[facility] [address] [place], [place], [phone] Glucose [Mass/Vol] 108 mg/dL High 74-106 [facility]; [facility] Work Phone: Comment on above: Result Comment: Fast ing Glucose result from 100 to 125 mg/dLsuggests IMPAIRED HOMEOSTASIS per A.D.A. criteria. Performed By: #### L 100.0100, L500.4050, L503.6005 ####[facility] [address] [place], [address] Potassium [Moles/Vol] 3.5 mmol/L Normal 3.5-5.[address] [facility]; [facility] Work Phone: Comment on above: Performed By: #### L 100.0100, L500.4050, L503.6005 ####[facility] [address] [place], [address] Sodium [Moles/Vol] 137 mmol/L Normal 136-145 [facility]; [facility] Work Phone: Comment on above: Performed By: #### L 100.0100, L500.4050, L503.6005 ####[facility] [address] [place], [address] T PROT 6.9 g/dL Normal 6.4-8.2 [facility]; [facility]. Work Phone: Comment on above: Performed By: #### L 100.0100, L500.4050, L503.6005 ####[facility] [address] [place], [address] Urea nitrogen [Mass/Vol] 15 mg/dL Normal 7-18 [facility]; [facility] Work Phone: Comment on above: Performed By: #### L 100.0100, L500.4050, L503.6005 ####[facility] [address] [place], [address] Emergency Department Summary on 05-30-2024 Emergency Department Summary Normal [facility] Laboratory - Chemistry and C hemistry - challengeon 05-30-2024 Magnesium [Mass/Vol] 30 mg/dL Abnormal [facility]. Work Phone: Magnesium [Mass/Vol] 8.9 mg/dL Normal 8.5 - 1 0.1 mg/dL [facility].; [facility], [facility]. Work Phone: Laboratory - Microbiology an d Antimicrobial susceptibilityon 05-30-2024 Bacteria identified Cx Nom (Unsp spec) 1+ Normal [facility].; [facility]. Work Phone: Laboratory - Specimen inform ationon 05-30-2024 Clarity (U) Clear Normal [facility].; [facility]. Work Phone: Color (U) Yellow Normal [facility].; [facility]. Work Phone: Laboratory - Urinalysison Nitrite Ql (U) Negative Normal [facility].; [facility], [facility]. Work Phone: Lactic Acidon 05-30-2024 Lactate [Moles/Vol] 1.6 mmol/L Normal 0.4-1.9 [facility].; [facility]. Work Phone: Comment on above: Order Comment: Y Performed By: #### L 100.0100, L500.4050, L503.6005 ####[facility] [address] [place], [address] No Panel Informationon 05-30 Absolute Lymph 0.79 {X10_3/uL} Abnormal 0.83 - 4.51 {X10_3/uL} [facility].; [facility], [facility]. Work Phone: Absolute Neut 3.5 {X10_3/uL} Normal 2.0 - 7.7 {X10_3/uL} [facility].; [facility]. Work Phone: BILIRUBIN URINE Negative Normal [facility].; [facility], [facility]. Work Phone: BUN/CRE 13.4 {RATIO} Normal 10 - 20 {RATIO} [facility].; [facility], [facility]. Work Phone: GLUCOSE, UR Normal Normal [facility].; [facility]. Work Phone: KETONE UR Negative Normal [facility].; [facility]. Work Phone: LEUK ESTERASE Negative Normal [facility].; [facility], [facility]. Work Phone: OCCULT BLOOD-UR Negative Normal [facility].; [facility]. Work Phone: pH UR 6.5 Normal 5.0 - 8.0 [facility].; [facility]. Work Phone: SP.GR. DIPSTX 1.010 Normal 1.002 - 1.030 [facility].; [facility]. Work Phone: UROBILI Normal Normal [facility].; [facility], [facility]. Work Phone: Urinalysis, Completeon 05-30 Mucus Ql (Urine sed) RARE Normal [facility].; [facility]. Work Phone: Comment on above: Order Comment: CLEAN CATCH Performed By: #### L 400.0001 ####[facility] [address] [place], [address] BACTERIA 1+ /hpf Normal None Seen [facility] Comment on above: Order Comment: CLEAN CATCH Performed By: #### L 400.0001 ####[facility] [address] [place], [address] EPI,SQUAMOUS 0-5 SEEN Normal 5-10 [facility].; [email or web address] Work Phone: Comment on above: Order Comment: CLEAN CATCH Performed By: #### L 400.0001 ####[facility] [address] [place], [address] WBC 0-5 SEEN Normal 0-5 [email or web address].; [email or web address]. Work Phone: Comment on above: Order Comment: CLEAN CATCH Performed By: #### L [id number] ####[facility] [address] [place], [address] RBC 0 SEEN Normal 0-5 [email or web address].; [email or web address]. Work Phone: Comment on above: Order Comment: CLEAN CATCH Performed By: #### L [id number] ####[facility] [address] [place], [address] OPERATIVE PROCEDURESon 02-15 OPERATIVE PROCEDURES [facility] OPERATIVE REPORT NAME ACCOUNT SEX AGE ADMIT DISCHARGE PT MED. RECORD# NUMBER DATE DATE TYPE SAPNA BULLARD [id number] F 84 02/05/24 2 [id number] ROOM: [facility] DATE OF : 1940 DICTATING PHYSICIAN: Marcos White DATE OF PROCEDURE: February 05, 2024 SURGEON: Marcos White DO YARN DRY ROOM WORKER: None. ANESTHETIC: Local. PRE-PROCEDURE DIAGNOSES: (1) Lumbar [...] Marcos White DO 02/05/24 12:03 JOB #: [id number] Transcribed By: tim 02/05/24 12:27 Electronically signed by: E-SIGN: MARCOS WHITE 02/16/24 07:40 Page 2 of 2 SAPNA BULLARD Operative Report Normal [facility] C-ARM USAGE 1 HOURon 024 C-ARM USAGE 1 HOUR [place] [address] Patient: SAPNA BULLARD. Phone#: : 1940 Age: 84 Gender: F Pt. Type: Out Account: [id number] Location: [facility] Ordering: MARCOS WHITE Exam Date: 02/05/2024/11:01 Family Phys: NICCI LEMUS Charge Code: [id number] Physician: [place] Order #: [id number] Dose#: PROCEDURE: C-ARM USEAGE 1 HR COMPARISON: [facility], , C-ARM USEAGE 1 HR, 10/08/2023, 8:09. [...] MD on 02/05/2024 at 16:03 Normal [facility] Automated blood erythrocyte count (number/volume)Ordered By: Vish Cook on 08-17-2023 RBC (Bld) [#/Vol] 4.32 10*6/uL Normal 4.2 - 5.4 {M/mm3} [facility] Automated blood hematocrit ( percentage)Ordered By: Vish Cook on 08-17-2023 Hematocrit (Bld) [Volume fraction] 37.9 % Normal 37 - 47 [facility] Basophil percentageOrdered B y: Vish Cook on 08-17-2023 Bilirubin [Mass/Vol] 0.30 mg/dL Normal 0.20 - 1.00 mg/dL [facility] Comment on above: For patients on eltr ombopag therapy, use of Dimension [place] TBIL is not recommended. Chloride [Moles/Vol] 104 mmol/L Normal 98 - 10 7 mmol/L [facility] Glucose [Mass/Vol] 92 mg/dL Normal 74 - 106 mg/dL [facility] Hemoglobin (Bld) [Mass/Vol] 11.7 g/dL Abnormal 12.0 - 15.0 g/dL [facility] Potassium [Moles/Vol] 3.9 mmol/L Normal 3.5 - 5.1 mmol/L [facility] Protein [Mass/Vol] 7.2 g/dL 6.4-8.2 [facility] Sodium [Moles/Vol] 138 mmol/L Normal 136 - 145 mmol/L [facility] WBC (Bld) [#/Vol] 11.0 10*3/uL Normal 4.4 - 11.0 K/mm3 [facility] Determination of erythrocyte mean corpuscular volume (MCV)Ordered By: Vish Cook on 08-17-2023 MCV (RBC) [Entitic vol] 87.7 fL Normal 81 - 99 fL [facility] Erythrocyte distribution wid th ratioOrdered By: Vish [facility] Centerm[facility]ison on 08-17-2023 Erythrocyte distribution width (RBC) [Ratio] 14.7 % Abnormal 11.6 - 14.6 [facility] Erythrocyte distribution wid th standard deviationOrdered By: [facility] Hospitaldashawn on 08-17-2023 Erythrocyte distribution width (RBC) [Entitic vol] 47.1 fL 35.1-43.9 [facility] Laboratory - Chemistry and C hemistry - challengeon 08-17-2023 Albumin [Mass/Vol] 3.0 g/dL Abnormal 3.2 - 5.0 g/dL [email or web address]; [email or web address] Work Phone: AST [Catalytic activity/Vol] 19 U/L Normal 15 - 37 U/L [facility]; [email or web address] Work Phone: GFR/1.73 sq M.predicted among non-blacks MDRD (S/P/Bld) [Vol rate/Area] 59 mL/min/{1.73_m2} Abnormal [facility]; [email or web address] Work Phone: Magnesium [Mass/Vol] 9.9 mg/dL Normal 8.5 - 1 0.1 mg/dL [facility]; [email or web address] Work Phone: Laboratory - Chemistry and C hemistry - challengeOrdered By: Vishsushila Cook on 08-17-2023 Albumin/Globulin [Mass ratio] 0.7 {ratio} Abnormal 0.9 - 2.4 {RATIO} [facility] ALP [Catalytic activity/Vol] 138 U/L 45-117 [facility] ALT [Catalytic activity/Vol] 17 U/L Normal 13 - 56 U/L [facility] CO2 [Moles/Vol] 29.0 mmol/L Normal 21.0 - 32.0 mmol/L [facility] Globulin (S) [Mass/Vol] 4.2 g/dL Normal 2.2 - 4.2 g/dL [facility] Urea nitrogen/Creatinine [Mass ratio] 17.8 mg/mg - [facility] Laboratory - Hematology and Cell countsOrdered By: Vish Cook on 08-17-2023 MCH (RBC) [Entitic mass] 27.1 pg Normal 27.0 - 32.0 pg [facility] MCHC (RBC) [Mass/Vol] 30.9 g/dL Abnormal 32 - 3 6 g/dL [facility] Platelet mean volume (Bld) [Entitic vol] 8.6 fL Normal 6.2 - 12.0 fL [facility] Platelets (Bld) [#/Vol] 440 10*3/uL Normal 150 - 450 K/mm3 [facility] No Panel Informationon 08-16 ALK P 138 U/L Abnormal 45 - 117 U/L [email or web address].; [email or web address]. Work Phone: BUN/CRE 17.8 {RATIO} Normal {RATIO} [email or web address].; [email or web address]. Work Phone: EST GFR - AA 72 mL/min Normal [email or web address].; [email or web address]. Work Phone: GAP 5 Normal 5 - 15 [facility]; [email or web address] Work Phone: RDW SD 47.1 fL Abnormal 35.1 - 43.9 fL [email or web address].; [email or web address] Work Phone: T PROT 7.2 g/dL Normal 6.4 - 8.2 g/dL [facility]; [email or web address] [facility] Work Phone: No Panel InformationOrdered By: Vsih Cook on 08-17-2023 Estimated GFR (MDRD) Amer 72 mL/min >60 [facility] Comment on above: GFR Calc Estimated GFR (MDRD) Non-Af Amer 59 mL/min >60 [facility] Comment on above: Non- GFR Calc Serum or plasma calcium canidce urement (mass/volume)Ordered By: Vish Cook on 08-17-2023 Calcium [Mass/Vol] 9.9 mg/dL 8.5-10.1 [facility] Serum or plasma creatinine m easurement (mass/volume)Ordered By: Vish Cook on 08-17-2023 Creatinine [Mass/Vol] 0.96 mg/dL Normal 0.55 - 1.02 mg/dL [facility] Comment on above: The validity of the calculated GFR & GFRAA in patients over 70 years has not been determined. Clinical correlation is essential. Serum or plasma urea nitroge n measurement (mass/volume)Ordered By: Vish Cook on 08-17-2023 Urea nitrogen [Mass/Vol] 17 mg/dL Normal 7 - 18 mg/dL [facility] Thin prep Papanicolaou smear with manual screeningOrdered By: Vish Cook on 08-17-2023 Thin prep Papanicolaou smear with manual screening 3.0 g/dL 3.2-5.0 [facility] Thin prep Papanicolaou smear with manual screening 19 U/L 15-37 [facility] Thin prep Papanicolaou smear with manual screening 5 5-15 [facility] Basophil percentageOrdered B y: Vish Cook on 08-14-2023 Basophil percentage 0 SEEN /hpf 0-5 [facility] Bilirubin Test strip Ql (U)O rdered By: Vish Cook on 08-14-2023 Bilirubin Ql (U) Negative Negative [facility] Culture, urineOrdered By: Ra destinee Cook on 08-14-2023 Bacteria identified Cx Nom (U) Culture exhibits no growth. [facility] Ketones Test strip Ql (U)Ord ered By: Vish Cook on 08-14-2023 Ketones Ql (U) Negative Negative [facility] Laboratory - Microbiology an d Antimicrobial susceptibilityon 08-14-2023 Bacteria identified Cx Nom (Unsp spec) 0 SEEN Normal [facility].; [email or web address]. Work Phone: Laboratory - Urinalysison Mucus Ql (Urine sed) 0 SEEN Normal [facility].; [facility], [facility]. Work Phone: Mucus LM Ql (Urine sed)Order ed By: Vish Cook on 08-14-2023 Mucus Ql (Urine sed) 0 SEEN /hpf [facility] Nitrite ur dipstickOrdered B y: Vish Cook on 08-14-2023 Nitrite Ql (U) Negative Normal [facility] No Panel InformationOrdered By: Vish Cook on 08-14-2023 Urine RBC 0 SEEN /hpf 0-5 [facility] No Panel Informationon 08-13 BILIRUBIN URINE Negative Normal [facility].; [email or web address]. Work Phone: EPI,SQUAMOUS 0 SEEN Normal 5 - 10 {/hpf} [facility].; [email or web address]. Work Phone: GLUCOSE, UR Normal Normal [facility].; [email or web address]. Work Phone: KETONE UR Negative Normal [facility].; [email or web address]. Work Phone: LEUK ESTERASE Negative Normal [facility].; [email or web address]. Work Phone: OCCULT BLOOD-UR Negative Normal [facility].; [email or web address]. Work Phone: pH UR 5.0 Normal 5.0 - 8.0 [email or web address].; [email or web address] Work Phone: PROT DIPSTX Negative Normal [facility]; [email or web address]. Work Phone: RBC 0 SEEN Normal 0 - 5 {/hpf} [facility].; [email or web address]. Work Phone: SP.GR. DIPSTX 1.010 Normal 1.002 - 1.030 [facility] CenterBuffer; [email or web address]. Work Phone: URC See Note Normal [facility]; [email or web address]. Work Phone: UROBILI Normal Normal [facility]; [email or web address]. Work Phone: WBC 0 SEEN Normal 0 - 5 {/hpf} [facility]; [email or web address] Work Phone: Protein Test strip Ql (U)Ord ered By: Vish Cook on 08-14-2023 Protein Ql (U) Negative Negative [facility] Squamous epithelial cells de tection in urine sediment by light microscopyOrdered By: Vsih Cook on 08-14-2023 Epithelial cells.squamous LM Ql (Urine sed) 0 SEEN /hpf 5-10 [facility] Urine blood detectionOrdered By: Vish Cook on 08-14-2023 RBC Ql (U) Negative Negative [facility] Urine clarityOrdered By: Vahe Cook on 08-14-2023 Clarity (U) Clear Normal [facility] Urine color determinationOrd ered By: Vish Cook on 08-14-2023 Color (U) Yellow Normal [facility] Urine glucose detectionOrder ed By: Vish Cook on 08-14-2023 Glucose Ql (U) Normal mg/dl Normal [facility] Urine leukocyte esterase det ection by dipstickOrdered By: Vish Cook on 08-14-2023 Leukocyte esterase Test strip Ql (U) Negative Negative [facility] Urine pHOrdered By: Vish Cook on 08-14-2023 pH (U) 5.0 [pH] 5.0 - 8.0 [facility] Urine sediment bacteria coun t by microscopy (number/high power field)Ordered By: Vish Cook on 08-14-2023 Bacteria LM.HPF (Urine sed) [#/Area] 0 /[HPF] None Seen [facility] Urine specific gravity measu rementOrdered By: Vish Cook on 08-14-2023 Specific gravity (U) [Rel density] 1.010 1.002-1.03 0 [facility] Urine urobilinogen measureme ntOrdered By: Vish Cook on 08-14-2023 Urobilinogen Ql (U) Normal mg/dl Normal [facility] Basophil percentageOrdered B y: Vish Cook on 05-25-2023 Potassium [Moles/Vol] 3.8 mmol/L Normal 3.5 - 5.1 mmol/L [facility] Absolute lymphocyte countOrd ered By: Pravin Cruz on 04-20-2023 Lymphocytes Auto (Unsp spec) [#/Vol] 1.38 10*3/uL 0.83-4.51 [facility] Automated blood hematocrit ( percentage)Ordered By: Pravin Cruz on 04-20-2023 Hematocrit (Bld) [Volume fraction] 31.2 % Abnormal 37 - 47 [facility] Basophil percentageOrdered B y: Pravin Cruz on 04-20-2023 Basophils/100 WBC (Bld) 0.3 % Normal 0 - 1 [facility] Chloride [Moles/Vol] 103 mmol/L Normal 98 - 10 7 mmol/L [facility] Eosinophils/100 WBC (Bld) 1.0 % Normal 0 - 5 [facility] Glucose [Mass/Vol] 92 mg/dL Normal 74 - 106 mg/dL [facility] Neutrophils (Bld) [#/Vol] 5.2 10*3/uL 2.0-7.7 [facility] Neutrophils/100 WBC (Bld) 65.0 % Normal 47 - 70 [facility] Potassium [Moles/Vol] 3.2 mmol/L Abnormal 3.5 - 5.1 mmol/L [facility] Sodium [Moles/Vol] 135 mmol/L Abnormal 136 - 145 mmol/L [facility] WBC (Bld) [#/Vol] 8.0 10*3/uL Normal 4.4 - 11.0 K/mm3 [facility] Blood erythrocytes count (nu mber/volume)Ordered By: Pravin Cruz on 04-20-2023 RBC (Bld) [#/Vol] 3.61 10*6/uL Abnormal 4.2 - 5.4 {M/mm3} [facility] Blood hemoglobin measurement (mass/volume)Ordered By: Pravin Cruz on 04-20-2023 Hemoglobin (Bld) [Mass/Vol] 10.0 g/dL Abnormal 12.0 - 15.0 g/dL [facility] Blood lymphocytes/100 leukoc ytesOrdered By: Pravin Cruz on 04-20-2023 Lymphocytes/100 WBC (Bld) 17.3 % Abnormal 19 - 41 [facility] Blood monocytes/100 leukocyt esOrdered By: Pravin Cruz on 04-20-2023 Monocytes/100 WBC (Bld) 16.0 % Abnormal 0 - 10 [facility] Blood platelet mean volumeOr dered By: Pravin Cruz on 04-20-2023 Platelet mean volume (Bld) [Entitic vol] 9.1 fL Normal 6.2 - 12.0 fL [facility] Determination of erythrocyte mean corpuscular volume (MCV)Ordered By: Pravin Cruz on 04-20-2023 MCV (RBC) [Entitic vol] 86.4 fL Normal 81 - 99 fL [facility] Laboratory - Chemistry and C hemistry - challengeon 04-20-2023 GFR/1.73 sq M.predicted among non-blacks MDRD (S/P/Bld) [Vol rate/Area] 71 mL/min/{1.73_m2} Normal [facility].; [facility] Work Phone: Magnesium [Mass/Vol] 8.2 mg/dL Abnormal 8.5 - 1 0.1 mg/dL [facility]; [facility] Work Phone: Laboratory - Chemistry and C hemistry - challengeOrdered By: Pravin Cruz on 04-20-2023 CO2 [Moles/Vol] 25.0 mmol/L Normal 21.0 - 32.0 mmol/L [facility] Urea nitrogen/Creatinine [Mass ratio] 19.6 mg/mg 10-20 [facility] Laboratory - Hematology and Cell countson 04-20-2023 Nucleated RBC (Bld) [#/Vol] 0 10*3/uL Normal 0 - 5 [facility]; [facility] Work Phone: Laboratory - Hematology and Cell countsOrdered By: Pravin Cruz on 04-20-2023 Erythrocyte distribution width (RBC) [Entitic vol] 42.5 fL 35.1-43.9 [facility] Erythrocyte distribution width (RBC) [Ratio] 13.4 % Normal 11.6 - 14.6 [facility] Immature granulocytes/100 WBC (Bld) 0.400 % 0.0-0.9 [facility] Comment on above: IG% - Immature Granu locytes (promyelocytes, myelocytes and metamyelocytes) > 1% indicates that a LEFT SHIFT is Present. MCH (RBC) [Entitic mass] 27.7 pg Normal 27.0 - 32.0 pg [facility] Nucleated RBC/100 WBC (Bld) [Ratio] 0 % 0-5 [facility] MCHC [Mass/volume] by Automa jose maria countOrdered By: Pravin Cruz on 04-20-2023 MCHC (RBC) [Mass/Vol] 32.1 g/dL Normal 32 - 3 6 g/dL [facility] No Panel Informationon 04-20 Absolute Lymph 1.38 {X10_3/uL} Normal 0.83 - 4.51 {X10_3/uL} [email or web address].; [email or web address]. Work Phone: Absolute Neut 5.2 {X10_3/uL} Normal 2.0 - 7.7 {X10_3/uL} [email or web address].; [employer] [email or web address]. Work Phone: BUN/CRE 19.6 {RATIO} Normal 10 - 20 {RATIO} [email or web address].; [employer] [email or web address]. Work Phone: ECRCL 41.00 ml/min Normal [facility].; [email or web address]. Work Phone: EST GFR - AA 86 mL/min Normal [email or web address].; [employer] [email or web address]. Work Phone: GAP 7 Normal 5 - 15 [email or web address].; [email or web address]. Work Phone: IG% 0.400 Normal 0.0 - 0.9 [email or web address].; [email or web address]. Work Phone: RDW SD 42.5 fL Normal 35.1 - 43.9 fL [email or web address].; [email or web address]. Work Phone: No Panel InformationOrdered By: Pravin Cruz on 04-20-2023 Estimated Creatinine Clearance Calc 41.00 ml/min [facility] Estimated GFR (MDRD) Amer 86 mL/min >60 [facility] Comment on above: GFR Calc Estimated GFR (MDRD) Non-Af Amer 71 mL/min >60 [facility] Comment on above: Non- GFR Calc Platelets bldOrdered By: [place] Cruz on 04-20-2023 Platelets (Bld) [#/Vol] 291 10*3/uL Normal 150 - 450 K/mm3 [facility] Serum or plasma calcium candice urement (mass/volume)Ordered By: Pravni Cruz on 04-20-2023 Calcium [Mass/Vol] 8.2 mg/dL 8.5-10.1 [facility] Serum or plasma creatinine m easurement (mass/volume)Ordered By: Pravin Cruz on 04-20-2023 Creatinine [Mass/Vol] 0.82 mg/dL Normal 0.55 - 1.02 mg/dL [facility] Comment on above: The validity of the calculated GFR & GFRAA in patients over 70 years has not been determined. Clinical correlation is essential. Serum or plasma urea nitroge n measurement (mass/volume)Ordered By: Pravin Cruz on 04-20-2023 Urea nitrogen [Mass/Vol] 16 mg/dL Normal 7 - 18 mg/dL [facility] Thin prep Papanicolaou smear with manual screeningOrdered By: Pravin Cruz on 04-20-2023 Thin prep Papanicolaou smear with manual screening 7 5-15 [facility] Basophil percentageOrdered B y: Karon White on 04-17-2023 Bilirubin [Mass/Vol] 0.40 mg/dL Normal 0.20 - 1.00 mg/dL [facility] Comment on above: For patients on eltr ombopag therapy, use of Dimension [place] TBIL is not recommended. Protein [Mass/Vol] 5.8 g/dL 6.4-8.2 [facility] Culture, urineOrdered By: Do art Cohen on 04-17-2023 Bacteria identified Cx Nom (U) Presumptive E. coli [facility] Laboratory - Chemistry and C hemistry - challengeon 04-17-2023 AST [Catalytic activity/Vol] 16 U/L Normal 15 - 37 U/L [facility].; [facility]. Work Phone: Chloride [Moles/Vol] 108 mmol/L Abnormal 98 - 10 7 mmol/L [facility]; [facility] Work Phone: CO2 [Moles/Vol] 25.0 mmol/L Normal 21.0 - 32.0 mmol/L [facility]; [facility] Work Phone: Creatinine [Mass/Vol] 0.88 mg/dL Normal 0.55 - 1.02 mg/dL [facility]; [facility] Work Phone: GFR/1.73 sq M.predicted among non-blacks MDRD (S/P/Bld) [Vol rate/Area] 66 mL/min/{1.73_m2} Normal [facility]; [facility] Work Phone: Glucose [Mass/Vol] 86 mg/dL Normal 74 - 106 mg/dL [facility]; [facility]. Work Phone: Magnesium [Mass/Vol] 7.9 mg/dL Abnormal 8.5 - 1 0.1 mg/dL [facility].; [facility]. Work Phone: Potassium [Moles/Vol] 3.8 mmol/L Normal 3.5 - 5.1 mmol/L [facility]; [facility]. Work Phone: Sodium [Moles/Vol] 138 mmol/L Normal 136 - 145 mmol/L [facility]; [facility]. Work Phone: Urea nitrogen [Mass/Vol] 10 mg/dL Normal 7 - 18 mg/dL [facility]; [facility] Work Phone: Laboratory - Chemistry and C hemistry - challengeOrdered By: Karon Nunes on 04-17-2023 ALP [Catalytic activity/Vol] 101 U/L 45-117 [facility] ALT [Catalytic activity/Vol] 12 U/L Abnormal 13 - 56 U/L [facility] Globulin (S) [Mass/Vol] 3.3 g/dL Normal 2.2 - 4.2 g/dL [facility] Laboratory - Hematology and Cell countson 04-17-2023 Basophils/100 WBC (Bld) 0.6 % Normal 0 - 1 [facility]; [facility] Work Phone: Eosinophils/100 WBC (Bld) 0.6 % Normal 0 - 5 [facility]; [facility] Work Phone: Erythrocyte distribution width (RBC) [Ratio] 13.3 % Normal 11.6 - 14.6 [facility]; [facility] Work Phone: Hematocrit (Bld) [Volume fraction] 32.4 % Abnormal 37 - 47 [facility]; [facility] Work Phone: Hemoglobin (Bld) [Mass/Vol] 9.9 g/dL Abnormal 12.0 - 15.0 g/dL [facility]; [facility] Work Phone: Lymphocytes/100 WBC (Bld) 13.6 % Abnormal 19 - 41 [facility]; [facility] Work Phone: MCH (RBC) [Entitic mass] 27.3 pg Normal 27.0 - 32.0 pg [facility]; [facility] Work Phone: MCHC (RBC) [Mass/Vol] 30.6 g/dL Abnormal 32 - 3 6 g/dL [facility]; [facility] Work Phone: MCV (RBC) [Entitic vol] 89.5 fL Normal 81 - 99 fL [facility]; [facility] Work Phone: Monocytes/100 WBC (Bld) 11.3 % Abnormal 0 - 10 [facility]; [facility]. Work Phone: Neutrophils/100 WBC (Bld) 73.6 % Abnormal 47 - 70 [facility]; [facility]. Work Phone: Nucleated RBC (Bld) [#/Vol] 0 10*3/uL Normal 0 - 5 [facility]; [facility] Work Phone: Platelet mean volume (Bld) [Entitic vol] 9.0 fL Normal 6.2 - 12.0 fL [facility]; [facility]. Work Phone: Platelets (Bld) [#/Vol] 302 10*3/uL Normal 150 - 450 K/mm3 [facility]; [facility] Work Phone: RBC (Bld) [#/Vol] 3.62 10*6/uL Abnormal 4.2 - 5.4 {M/mm3} [facility]; [facility]. Work Phone: WBC (Bld) [#/Vol] 6.9 10*3/uL Normal 4.4 - 11.0 K/mm3 [facility]; [facility] Work Phone: No Panel Informationon 04-17 Absolute Lymph 0.94 {X10_3/uL} Normal 0.83 - 4.51 {X10_3/uL} [facility]; [facility]. Work Phone: Absolute Neut 5.1 {X10_3/uL} Normal 2.0 - 7.7 {X10_3/uL} [facility].; [facility]. Work Phone: ALK P 101 U/L Normal 45 - 117 U/L [facility].; [facility], [facility]. Work Phone: BUN/CRE 11.4 {RATIO} Normal 10 - 20 {RATIO} [facility].; [facility], [facility]. Work Phone: ECRCL 37.44 ml/min Normal [facility], [facility]. Work Phone: EST GFR - AA 79 mL/min Normal [facility], [facility]. Work Phone: GAP 5 Normal 5 - 15 [facility], [facility]. Work Phone: IG% 0.300 Normal 0.0 - 0.9 [facility]; [facility], [facility]. Work Phone: RDW SD 43.8 fL Normal 35.1 - 43.9 fL [facility].; [facility], [facility]. Work Phone: T PROT 5.8 g/dL Abnormal 6.4 - 8.2 g/dL [facility].; [facility], [facility]. Work Phone: No Panel InformationOrdered By: Karon Nunes on 04-17-2023 Streptococcus pneumoniae Antigen ([facility] Respiratory pathogens detect ion panel by molecular detection methodOrdered By: Karon Nunes on 04-17-2023 Respiratory pathogens DNA and RNA panel ZAID+probe (Resp) [facility] Serum or plasma albumin candice urement (mass/volume)Ordered By: Karon Nunes on 04-17-2023 Albumin [Mass/Vol] 2.5 g/dL Abnormal 3.2 - 5.0 g/dL [facility] Serum or plasma albumin/glob ulin mass ratioOrdered By: Karon Nunes on 04-17-2023 Albumin/Globulin [Mass ratio] 0.8 {ratio} Abnormal 0.9 - 2.4 {RATIO} [facility] Thin prep Papanicolaou smear with manual screeningOrdered By: Karon Nunes on 04-17-2023 Thin prep Papanicolaou smear with manual screening 16 U/L 15-37 [facility] Urine Legionella pneumophila antigen detectionOrdered By: Karon Nunes on 04-17-2023 L. pneumophila Ag Ql (U) [facility] Basophil percentageOrdered B y: Nicholas Cohen on 04-16-2023 Basophil percentage 10-25 SEEN /hpf 0-5 [facility] Bilirubin Test strip Ql (U)O rdered By: Nicholas Cohen on 04-16-2023 Bilirubin Ql (U) Negative Negative [facility] Ketones Test strip Ql (U)Ord ered By: Nicholas Cohen on 04-16-2023 Ketones Ql (U) Negative Negative [facility] Laboratory - Chemistry and C hemistry - challengeOrdered By: Karon Manju on 04-16-2023 Magnesium [Mass/Vol] 2.0 mg/dL Normal 1.6 - 2 .6 mg/dL [facility] Laboratory - Chemistry and C hemistry - challengeon 04-16-2023 Albumin [Mass/Vol] 3.1 g/dL Abnormal 3.2 - 5.0 g/dL [facility]; [email or web address] [facility] Work Phone: Albumin/Globulin [Mass ratio] 0.8 {ratio} Abnormal 0.9 - 2.4 {RATIO} [facility]; [facility] [email or web address] [facility] Work Phone: ALT [Catalytic activity/Vol] 17 U/L Normal 13 - 56 U/L [facility]; [facility] Work Phone: AST [Catalytic activity/Vol] 18 U/L Normal 15 - 37 U/L [facility]; [facility] Work Phone: Bilirubin [Mass/Vol] 0.50 mg/dL Normal 0.20 - 1.00 mg/dL [facility]; [facility] Work Phone: Chloride [Moles/Vol] 101 mmol/L Normal 98 - 10 7 mmol/L [facility]; [facility] Work Phone: CO2 [Moles/Vol] 29.0 mmol/L Normal 21.0 - 32.0 mmol/L [facility]; [facility] Work Phone: Creatinine [Mass/Vol] 0.95 mg/dL Normal 0.55 - 1.02 mg/dL [facility]; [facility] Work Phone: GFR/1.73 sq M.predicted among non-blacks MDRD (S/P/Bld) [Vol rate/Area] 60 mL/min/{1.73_m2} Normal [facility]; [facility] Work Phone: Globulin (S) [Mass/Vol] 3.9 g/dL Normal 2.2 - 4.2 g/dL [facility]; [facility] Work Phone: Glucose [Mass/Vol] 100 mg/dL Normal 74 - 106 mg/dL [facility]; [facility] Work Phone: Magnesium [Mass/Vol] 15 mg/dL Abnormal [facility].; [facility]. Work Phone: Magnesium [Mass/Vol] 8.7 mg/dL Normal 8.5 - 1 0.1 mg/dL [facility]; [facility]. Work Phone: Potassium [Moles/Vol] 3.3 mmol/L Abnormal 3.5 - 5.1 mmol/L [facility]; [facility]. Work Phone: Sodium [Moles/Vol] 135 mmol/L Abnormal 136 - 145 mmol/L [facility]; [facility]. Work Phone: Urea nitrogen [Mass/Vol] 14 mg/dL Normal 7 - 18 mg/dL [facility]; [facility] Work Phone: Laboratory - Microbiology an d Antimicrobial susceptibilityon 04-16-2023 Bacteria identified Cx Nom (Unsp spec) 1+ Normal [facility]; [facility] Work Phone: L. pneumophila Ag Ql (U) See Note Normal [facility].; [facility] Work Phone: Respiratory pathogens DNA and RNA 12b panel ZAID+probe (Unsp spec) See Note Normal [facility].; [facility], [facility] Work Phone: S. pneumoniae Ag LA Ql (Unsp spec) See Note Normal [facility].; [facility], [facility]. Work Phone: Laboratory - Urinalysison Mucus Ql (Urine sed) 0 SEEN Normal [facility]; [employer]. Work Phone: Mucus LM Ql (Urine sed)Order ed By: Nicholas Cohen on 04-16-2023 Mucus Ql (Urine sed) 0 SEEN /hpf [facility] Nitrite ur dipstickOrdered B y: Nicholas Cohen on 04-16-2023 Nitrite Ql (U) Negative Normal [facility] No Panel InformationOrdered By: Nicholas Cohen on 04-16-2023 Troponin I High Sensitivity 14 pg/mL 3.0-54.0 [facility] Comment on above: Please Note: New Shaniqua t Units and Gender Specific Reference Ranges. For more information see Policy Stat Procedure [place] High Sensitivity Troponin (TNIH) and attachments. No Panel Informationon 04-16 ALK P 117 U/L Normal 45 - 117 U/L [facility] [employer] [email or web address].; [email or web address] [facility] [employer] [email or web address]. Work Phone: BILIRUBIN URINE Negative Normal [facility] [employer] [email or web address].; [facility] [email or web address] [facility] [employer] [email or web address]. Work Phone: BUN/CRE 14.7 {RATIO} Normal 10 - 20 {RATIO} [facility] [employer] [email or web address].; [email or web address] [facility] [employer] [email or web address]. Work Phone: ECRCL 34.69 ml/min Normal [email or web address].; [email or web address] [facility] [employer] [email or web address]. Work Phone: EPI,SQUAMOUS 0 SEEN Normal 5 - 10 {/hpf} [employer] [email or web address].; [email or web address] [facility] [employer] [facility] Work Phone: EST GFR - AA 72 mL/min Normal [facility] [employer] [email or web address].; [email or web address] [facility] [employer] [email or web address]. Work Phone: GAP 5 Normal 5 - 15 [email or web address].; [email or web address] [facility] [employer] [facility], [employer]. Work Phone: GLUCOSE, UR Normal Normal [facility] [employer] [email or web address].; [employer] [facility]. Work Phone: KETONE UR Negative Normal [facility]; [facility]. Work Phone: LEUK ESTERASE 500 /ul Abnormal [facility].; [facility]. Work Phone: [phone] See Note Normal [facility].; [facility]. Work Phone: OCCULT BLOOD-UR 25 /ul Abnormal [facility].; [facility]. Work Phone: pH UR 7.0 Normal 5.0 - 8.0 [facility]; [facility], [facility]. Work Phone: RBC 0-5 SEEN Normal 0 - 5 {/hpf} [facility].; [facility], [facility]. Work Phone: SP.GR. DIPSTX 1.010 Normal 1.002 - 1.030 [facility]; [facility] Work Phone: T PROT 7.0 g/dL Normal 6.4 - 8.2 g/dL [facility]; [facility]. Work Phone: TROPONIN-I HS 14 pg/mL Normal 3.0 - 54.0 pg/mL [facility]; [facility]. Work Phone: URC See Note Normal [facility].; [facility], [facility]. Work Phone: UROBILI Normal Normal [facility]; [facility] Work Phone: WBC 10-25 SEEN Normal 0 - 5 {/hpf} [facility]; [facility] Work Phone: Protein Test strip Ql (U)Ord ered By: Nicholas Cohen on 04-16-2023 Protein Ql (U) 15 mg/dl Negative [facility] Squamous epithelial cells de tection in urine sediment by light microscopyOrdered By: Nicholas Cohen on 04-16-2023 Epithelial cells.squamous LM Ql (Urine sed) 0 SEEN /hpf 5-10 [facility] Urine blood detectionOrdered By: Nicholas Cohen on 04-16-2023 RBC Ql (U) 25 /ul Negative [facility] RBC Ql (U) 0-5 SEEN /hpf 0-5 [facility] Urine clarityOrdered By: Geremias Cohen on 04-16-2023 Clarity (U) Sl. Cloudy Normal [facility] Urine color determinationOrd ered By: Nicholas Cohen on 04-16-2023 Color (U) Yellow Normal [facility] Urine glucose detectionOrder ed By: Nicholas Cohen on 04-16-2023 Glucose Ql (U) Normal mg/dl Normal [facility] Urine leukocyte esterase det ection by dipstickOrdered By: Nicholas Cohen on 04-16-2023 Leukocyte esterase Test strip Ql (U) 500 /ul Negative [facility] Urine pHOrdered By: Nicholas bishop on 04-16-2023 pH (U) 7.0 [pH] 5.0 - 8.0 [facility] Urine sediment bacteria coun t by microscopy (number/high power field)Ordered By: Nicholas Cohen on 04-16-2023 Bacteria LM.HPF (Urine sed) [#/Area] 1 /[HPF] None Seen [facility] Urine specific gravity measu rementOrdered By: Nicholas Cohen on 04-16-2023 Specific gravity (U) [Rel density] 1.010 1.002-1.03 0 [facility] Urobilinogen Auto test strip Ql (U)Ordered By: Nicholas Cohen on 04-16-2023 Urobilinogen Ql (U) Normal mg/dl Normal [facility] Culture, urineOrdered By: Julia Grigsby on 04-06-2023 Bacteria identified Cx Nom (U) GPC Poss Enterococcus sp [facility] Basophil percentageOrdered B y: Elilott Grigsby on 04-05-2023 Basophil percentage 0-5 SEEN /hpf 0-[address] [facility] Comment on above: Previous reported re sult: 0 SEEN /hpfEdited by: KAMAR on 04/05/23:1616 AMENDED REPORT 04/05/23 1616 WBC previously reported as: 0 SEEN /hpf Bilirubin Test strip Ql (U)O rdered By: Elliott Grigsby on 04-05-2023 Bilirubin Ql (U) 1 mg/dL Negative [facility] Comment on above: COLOR OF URINE MAY A FFECT DIPSTICK RESULTS. Calcium oxalate crystals det ection in urine sediment by light microscopyOrdered By: Elliott Grigsby on 04-05-2023 Calcium oxalate crystals LM Ql (Urine sed) 2+ /hpf [facility] Hyaline casts LM.LPF (Urine sed) [#/Area]Ordered By: Elliott Grigsby on 04-05-2023 Hyaline casts (Urine sed) [#/Area] 0 /[LPF] 0-5 [facility] Ketones Test strip Ql (U)Ord ered By: Elliott Grigsby on 04-05-2023 Ketones Ql (U) Negative Negative [facility] Laboratory - Chemistry and C hemistry - challengeon 04-05-2023 Bilirubin Ql (U) Small (1+) [facility] Glucose Ql (U) Negative [facility] Ketones Ql (U) Small (15+) [facility] pH (U) 5.0 [pH] [facility] Specific gravity (U) [Rel density] 1.015 [facility] Urobilinogen (U) [Mass/Vol] 1 mg/dL [facility] Laboratory - Hematology and Cell countson 04-05-2023 Hemoglobin Ql (U) Negative [facility] Laboratory - Specimen inform ationon 04-05-2023 Clarity (U) Clear [facility] Color (U) Opal [facility] Laboratory - Urinalysison Nitrite Ql (U) Positive [facility] Protein Ql (U) 3+ [facility] Magnesium ammonium phosphate crystal detectionOrdered By: Elliott Grigsby on 04-05-2023 Triple phosphate crystals LM Ql (Urine sed) 0 SEEN /hpf [facility] Mucus LM Ql (Urine sed)Order ed By: Elliott Grigsby on 04-05-2023 Mucus Ql (Urine sed) 0 SEEN /hpf [facility] Nitrite Test strip Ql (U)Ord ered By: Elliott Grigsby on 04-05-2023 Nitrite Ql (U) Negative Negative [facility] No Panel InformationOrdered By: Elliott Grigsby on 04-05-2023 Urine Transitional Epithelial Cells 0 SEEN /hpf 0-5 [facility] No Panel Informationon 04-05 Urine Leukocytes Negatve [facility] Urine Non-Hemolyzed Blood [facility] Protein Test strip Ql (U)Ord ered By: Elliott Grigsby on 04-05-2023 Protein Ql (U) 30 mg/dl Negative [facility] Squamous epithelial cells de tection in urine sediment by light microscopyOrdered By: Elliott Grigsby on 04-05-2023 Epithelial cells.squamous LM Ql (Urine sed) 0-5 SEEN /hpf 5-10 [facility] Comment on above: Previous reported re sult: 0 SEEN /hpfEdited by: KAMAR on 04/05/23:1616 AMENDED REPORT 04/05/23 1616 SQUAM EPI previously reported as: 0 SEEN /hpf Urine blood detectionOrdered By: Elliott Grigsby on 04-05-2023 RBC Ql (U) 10 /ul Negative [facility] RBC Ql (U) 0 SEEN /hpf 0-5 [facility] Urine clarityOrdered By: Skyler Grigsby on 04-05-2023 Clarity (U) Clear Clear [facility] Urine coarse granular cast d etectionOrdered By: Elliott Grigsby on 04-05-2023 Coarse Granular Casts LM Ql (Urine sed) 0 SEEN /lpf 0-5 /lpf [facility] Urine color determinationOrd ered By: Elliott Grigsby on 04-05-2023 Color (U) Yellow Yellow [facility] Urine glucose detectionOrder ed By: Elliott Grigsby on 04-05-2023 Glucose Ql (U) Normal mg/dl Normal [facility] Urine leukocyte esterase det ection by dipstickOrdered By: Elliott Grigsby on 04-05-2023 Leukocyte esterase Test strip Ql (U) 25 /ul Negative [facility] Urine pHOrdered By: Elliott dickerson on 04-05-2023 pH (U) 6.0 [pH] 5.0 - 8.0 [facility] Urine sediment bacteria coun t by microscopy (number/high power field)Ordered By: Elliott Grigsby on 04-05-2023 Bacteria LM.HPF (Urine sed) [#/Area] 0 /[HPF] None Seen [facility] Urine sediment erythrocyte c ast detection by light microscopyOrdered By: Elliott Grigsby on 04-05-2023 RBC casts LM Ql (Urine sed) 0 SEEN /lpf None Seen [facility] Urine sediment fine granular cast count by microscopy (number/low power field)Ordered By: Elliott Grigsby on 04-05-2023 Fine Granular Casts LM.LPF (Urine sed) [#/Area] 0 SEEN /lpf 0-5 [facility] Urine sediment leukocyte bianca t count by microscopy (number/low power field)Ordered By: Elliott Grigsby on 04-05-2023 WBC casts LM.LPF (Urine sed) [#/Area] 0 SEEN /lpf None Seen [facility] Urine sediment renal epithel ial cell count by microscopy (number/high power field)Ordered By: Elliott Grigsby on 04-05-2023 Epithelial cells.renal LM.HPF (Urine sed) [#/Area] 0 /[HPF] 0-5 [facility] Urine sediment unidentified crystal count by microscopy (number/high powered field)Ordered By: Elliott Grigsby on 04-05-2023 Unidentified crystals LM.HPF (Urine sed) [#/Area] 0 SEEN /hpf None Seen [facility] Urine sediment uric acid cry stal count by microscopy (number/high power field)Ordered By: Elliott Grigsby on 04-05-2023 Urate crystals LM.HPF (Urine sed) [#/Area] 0 /[HPF] [facility] Urine specific gravity measu rementOrdered By: Elliott Grigsby on 04-05-2023 Specific gravity (U) [Rel density] 1.025 1.002-1.03 0 [facility] Urobilinogen Auto test strip Ql (U)Ordered By: Elliott Grigsby on 04-05-2023 Urobilinogen Ql (U) 1 mg/dl Normal [facility] Waxy casts detection in urin e sediment by light microscopyOrdered By: Elliott Grigsby on 04-05-2023 Waxy casts LM Ql (Urine sed) 0 SEEN /lpf None Seen [facility] .Auto Diffon 11-14-2022 Basophil, Absolute 0.1 10 3/mcL Normal 0.0-0.3 [facility] ([place]) Comment on above: Performed By: #### A DIFF, ANEU, CBC #### [address] [address] Basophils/100 WBC (Bld) 1.0 % Normal 0.0 - 2.5 % [facility] ([place]) Comment on above: Performed By: #### A DIFF, ANEU, CBC #### [address] [address] Eosinophil, Absolute 0.1 10 3/mcL Normal 0.0-0.7 Au [facility] ([place]) Comment on above: Performed By: #### A DIFF, ANEU, CBC #### [address] [address] Eosinophils/100 WBC (Bld) 2.0 % Normal 0.0 - 6.0 % [facility] ([place]) Comment on above: Performed By: #### A DIFF, ANEU, CBC #### [address] [address] Lymphocyte, Absolute 1.9 10 3/mcL Normal 0.9-4.3 Au [facility] ([place]) Comment on above: Performed By: #### A DIFF, ANEU, CBC #### [address] [address] Lymphocytes/100 WBC (Bld) 25.6 % Normal 20.0 - 40.0 % [facility] ([place]) Comment on above: Performed By: #### A DIFF, ANEU, CBC #### [address] [address] Monocyte, Absolute 0.6 10 3/mcL Normal 0.1-1.4 [facility] ([place]) Comment on above: Performed By: #### A DIFF, ANEU, CBC #### [address] [address] Monocytes/100 WBC (Bld) 8.5 % Normal 2.0 - 13.0 % [facility] ([place]) Comment on above: Performed By: #### A DIFF, ANEU, CBC #### [place] [id number] Neutrophils/100 WBC (Bld) 62.9 % Normal 50.0 - 75.0 % [facility] ([place]) Comment on above: Performed By: #### A DIFF, ANEU, CBC #### [address] [address] .NEUABSon 11-14-2022 Neutrophil, Absolute 4.7 10 3/mcL Normal 2.3-8.1 [facility] ([place]) Comment on above: Performed By: #### A DIFF, ANEU, CBC #### [address] [address] CBCon 11-14-2022 Erythrocyte distribution width (RBC) [Ratio] 16.2 % Abnormal 11.5 - 15.5 % [facility] ([place]) Comment on above: Performed By: #### A DIFF, ANEU, CBC #### [place] [address] Hematocrit (Bld) [Volume fraction] 34.8 % Normal 34.0 - 46.0 % [facility] ([place]) Comment on above: Performed By: #### A DIFF, ANEU, CBC #### [address] [address] Hgb 11.3 G/dL Low 12.0-16.0 [facility] ([place]) Comment on above: Performed By: #### A DIFF, ANEU, CBC #### [address] [address] MCH (RBC) [Entitic mass] 28.8 pg Normal 27.0 - 33.0 pg [facility] ([place]) Comment on above: Performed By: #### A DIFF, ANEU, CBC #### [place] [id number] MCHC 32.5 G/dL Normal 32.0-36.0 [facility] ([place]) Comment on above: Performed By: #### A DIFF, ANEU, CBC #### [address] [address] MCV (RBC) [Entitic vol] 88.6 fL Normal 80.0 - 99.0 fL [facility] ([place]) Comment on above: Performed By: #### A DIFF, ANEU, CBC #### [address] [address] Platelet 362 10 3/mcL Normal 150-450 [facility] ([place]) Comment on above: Performed By: #### A DIFF, ANEU, CBC #### [address] [address] Platelet mean volume (Bld) [Entitic vol] 7.1 fL Normal 6.6 - 10.5 fL [facility] ([place]) Comment on above: Performed By: #### A DIFF, ANEU, CBC #### [address] [address] RBC 3.92 10 6/mcL Low 4.10-5.30 [facility] ([place]) Comment on above: Performed By: #### A DIFF, ANEU, CBC #### [address] [address] WBC 7.5 10 3/mcL Normal 4.5-10.8 [facility] ([place]) Comment on above: Performed By: #### A DIFF, ANEU, CBC #### [address] [address] Laboratory - Hematology and Cell countson 11-13-2022 Basophils (Bld) [#/Vol] 0.1 {10^3/mcL} Normal 0.0 - 0.3 {10^3/mcL} [facility]; [email or web address]. Work Phone: Eosinophils (Bld) [#/Vol] 0.1 {10^3/mcL} Normal 0.0 - 0.7 {10^3/mcL} [facility]; [email or web address] Work Phone: Hemoglobin (Bld) [Mass/Vol] 11.3 g/dL Abnormal 12.0 - 16.0 g/dL [email or web address].; [facility]. Work Phone: Lymphocytes (Bld) [#/Vol] 1.9 {10^3/mcL} Normal 0.9 - 4.3 {10^3/mcL} [facility].; [facility], [facility]. Work Phone: MCHC (RBC) [Mass/Vol] 32.5 g/dL Normal 32.0 - 36.0 g/dL [facility].; [facility], [facility]. Work Phone: Monocytes (Bld) [#/Vol] 0.6 {10^3/mcL} Normal 0.1 - 1.4 {10^3/mcL} [facility].; [facility], [facility]. Work Phone: Neutrophils (Bld) [#/Vol] 4.7 {10^3/mcL} Normal 2.3 - 8.1 {10^3/mcL} [facility].; [facility], [facility]. Work Phone: Platelets (Bld) [#/Vol] 362 {10^3/mcL} Normal 150 - 450 {10^3/mcL} [facility].; [facility], [facility]. Work Phone: RBC (Bld) [#/Vol] 3.92 {10^6/mcL} Abnormal 4.10 - 5.30 {10^6/mcL} [facility].; [facility], [facility]. Work Phone: WBC (Bld) [#/Vol] 7.5 {10^3/mcL} Normal 4.5 - 10 .8 {10^3/mcL} [facility].; [facility], [facility]. Work Phone: No Panel Informationon 11-13 Basophil, Absolute 0.1 {10^3/mcL} Normal 0.0 - 0 .3 {10^3/mcL} [email or web address]. Work Phone: Eosinophil, Absolute 0.1 {10^3/mcL} Normal 0.0 - 0.7 {10^3/mcL} [email or web address] Work Phone: Lymphocyte, Absolute 1.9 {10^3/mcL} Normal 0.9 - 4.3 {10^3/mcL} [email or web address] Work Phone: Monocyte, Absolute 0.6 {10^3/mcL} Normal 0.1 - 1 .4 {10^3/mcL} [email or web address] Work Phone: Neutrophil, Absolute 4.7 {10^3/mcL} Normal 2.3 - 8.1 {10^3/mcL} [facility]; [email or web address] Work Phone: Laboratory - Chemistry and C hemistry - challengeon 06-30-2022 Albumin [Mass/Vol] 1.0 g/dL Normal 0.9 - 1.6 [facility]; [email or web address]. Albumin [Mass/Vol] 3.4 g/dL Normal 3.4 - 5.0 g/dL [facility]; [email or web address]. ALT [Catalytic activity/Vol] 23 U/L Normal 14 - 59 U/L [facility].; [email or web address]. ALT No additional P-5'-P [Catalytic activity/Vol] 23 U/L Normal 14 - 59 U/L [facility].; [facility] Anion gap [Moles/Vol] 10 mmol/L Normal 10 - 2 0 mmol/L [facility]; [facility] AST [Catalytic activity/Vol] 31 U/L Normal 13 - 39 U/L [facility] [facility] Bilirubin [Mass/Vol] 0.3 mg/dL Normal 0.2 - 1 .0 mg/dL [facility]; [facility] Calcium [Mass/Vol] 9.0 mg/dL Normal 8.5 - 10. 1 mg/dL [facility]; [facility] Chloride [Moles/Vol] 102 mmol/L Normal 98 - 10 7 mmol/L [facility]; [facility] Cholesterol [Mass/Vol] 193 mg/dL Normal 0 - 240 mg/dL [facility]; [facility] Cholesterol in HDL [Mass or moles/Vol] 50 mg/dL Normal 40 - 60 mg/dL [facility]; [facility] Cholesterol in LDL [Mass/Vol] 128 mg/dL Normal 0 - 129 mg/dL [facility]; [facility] Cholesterol.total/Cho lesterol in HDL [Mass ratio] 3.9 {ratio} Normal 0.0 - 5.0 [facility]; [facility] CO2 [Moles/Vol] 32.3 mmol/L Abnormal 21.0 - 32.0 mmol/L [facility]; [facility] Creatinine [Mass/Vol] 0.84 mg/dL Normal 0.55 - 1.02 mg/dL [facility]; [facility] GFR/1.73 sq M.predicted among blacks MDRD (S/P/Bld) [Vol rate/Area] mL/min/{1.73_m2} Normal 60 - 999 {ML/MINUTE } [facility].; [facility], [facility]. GFR/1.73 sq M.predicted MDRD (S/P/Bld) [Vol rate/Area] mL/min/{1.73_m2} Normal 60 - 999 {ML/MINUTE } [facility] Globulin (S) [Mass/Vol] 3.3 g/dL Normal 1.5 - 3.8 g/dL [facility]; [facility] Glucose [Mass/Vol] 92 mg/dL Normal 74 - 106 mg/dL [facility]; [facility] Lipid 1996 panel Normal [facility]; [facility], [facility] Potassium [Moles/Vol] 3.6 mmol/L Normal 3.5 - 5.1 mmol/L [facility]; [facility] Protein [Mass/Vol] 6.7 g/dL Normal 6.4 - 8.2 g/dL [facility]; [facility], [facility] Sodium [Moles/Vol] 141 mmol/L Normal 136 - 145 mmol/L [facility]; [facility] Triglyceride [Mass/Vol] 74 mg/dL Normal 0 - 150 mg/dL [facility] TSH Qn 2.16 m[IU]/L Normal 0.35 - 3.74 {uIU/ml} [facility].; [facility], [facility] Urea nitrogen [Mass/Vol] 14 mg/dL Normal 7 - 18 mg/dL [facility].; [facility], [facility] Urea nitrogen/Creatinine [Mass ratio] 17 {ratio} Normal 0 - 30 {ratio} [facility].; [facility], [facility] Laboratory - Hematology and Cell countson 06-30-2022 Basophils (Bld) [#/Vol] 0.00 {x10EE3/UL} Normal 0.00 - 0.10 {x10EE3/UL } [facility] Basophils/100 WBC (Bld) 0.6 % Normal 0.0 - 2.0 % [facility].; [facility], [facility] Eosinophils (Bld) [#/Vol] 0.10 {x10EE3/UL} Normal 0.00 - 0.50 {x10EE3/UL } [facility].; [facility] Eosinophils/100 WBC (Bld) 2.0 % Normal 0.0 - 7.0 % [facility].; [facility] Erythrocyte distribution width (RBC) [Ratio] 13.1 % Normal 12.0 - 15.6 % [email or web address], [facility] Hematocrit (Bld) [Volume fraction] 35.3 % Normal 34.0 - 46.0 % [email or web address].; [facility] Hemoglobin (Bld) [Mass/Vol] 11.3 g/dL Abnormal 12.0 - 16.0 g/dL [email or web address], [facility] Lymphocytes (Bld) [#/Vol] 1.50 {x10EE3/UL} Normal 0.80 - 2.80 {x10EE3/UL } [email or web address].; [facility], [facility]. Lymphocytes/100 WBC (Bld) 23.7 % Normal 20.0 - 45.0 % [email or web address].; [facility], [employer]. MCH (RBC) [Entitic mass] 28 pg Normal 27 - 33 pg [email or web address].; [facility], [facility]. MCHC (RBC) [Mass/Vol] 32 {X10_3} Normal 32 - 3 6 {X10_3} [email or web address].; [facility], [employer]. MCV (RBC) [Entitic vol] 88 fL Normal 80 - 99 fL [facility], [employer]. Monocytes (Bld) [#/Vol] 1.00 {x10EE3/UL} Normal 0.20 - 1.00 {x10EE3/UL } [facility], [employer].; [facility] [employer] Monocytes/100 WBC (Bld) 15.0 % Abnormal 0.0 - 10.0 % [facility], [employer]. Morphology Sonny (Bld) [Interp] N/A Normal [facility], [employer]. Neutrophils (Bld) [#/Vol] 3.80 {x10EE3/UL} Normal 1.50 - 7.10 {x10EE3/UL } [email or web address].; [facility], [employer]. Neutrophils/100 WBC (Bld) 58.7 % Normal 46.0 - 76.0 % [facility].; [facility] [employer], [employer]. Platelet mean volume (Bld) [Entitic vol] 7.6 fL Normal 6.6 - 10.5 fL [facility].; [facility], [employer]. Platelets (Bld) [#/Vol] 461 {x10EE3/UL} Abnormal 150 - 450 {x10EE3/UL } [facility] [employer].; [facility] [employer] RBC (Bld) [#/Vol] 4.00 {x_10EE6/UL} Abnormal 4.10 - 5.30 {x_10EE6/U L} [employer] [facility] [employer], [employer]. WBC (Bld) [#/Vol] 6.5 {x_10EE3/UL} Normal 4.5 - 10.8 {x_10EE3/U L} [employer] [facility] [employer], [employer]. No Panel Informationon 06-30 AGE 82 {years} Normal [facility].; [facility], [facility]. ALK PHOS 111 U/L Normal 46 - 116 U/L [facility].; [facility], [facility]. CBC + DIFF Normal [facility].; [facility], [facility]. CMP with eGFR Normal [facility].; [facility]. MANUAL DIFF N/A Normal [facility].; [facility]. Absolute lymphocyte counton 02-15-2022 Lymphocytes Auto (Unsp spec) [#/Vol] 2.15 10*3/uL 0.83-4.51 [facility] Work Phone: Basophil percentageon 2021 Basophils/100 WBC (Bld) 0.4 % 0-1 [facility] Work Phone: Chloride [Moles/Vol] 107 mmol/L 98-107 [facility] Work Phone: Eosinophils/100 WBC (Bld) 2.4 % 0-5 [facility] Work Phone: Glucose [Mass/Vol] 98 mg/dL 74-106 [facility] Work Phone: Neutrophils (Bld) [#/Vol] 3.5 10*3/uL 2.0-7.7 [facility] Work Phone: Neutrophils/100 WBC (Bld) 52.1 % 47-70 [facility] Work Phone: Potassium [Moles/Vol] 4.3 mmol/L 3.5-5.1 [facility] Work Phone: Sodium [Moles/Vol] 139 mmol/L 136-145 [facility] Work Phone: WBC (Bld) [#/Vol] 6.8 10*3/uL 4.4-11.0 [facility] Work Phone: Blood erythrocytes count (nu mber/volume)on 02-15-2022 RBC (Bld) [#/Vol] 3.76 10*6/uL 4.2-5.4 [facility] Work Phone: Blood hemoglobin measurement (mass/volume)on 02-15-2022 Hemoglobin (Bld) [Mass/Vol] 11.4 g/dL 12.0-15.0 [facility] Work Phone: Blood lymphocytes/100 leukoc yteson 02-15-2022 Lymphocytes/100 WBC (Bld) 31.7 % 19-41 [facility] Work Phone: Blood monocytes/100 leukocyt eson 02-15-2022 Monocytes/100 WBC (Bld) 13.1 % 0-10 [facility] Work Phone: Blood platelet mean volumeon 02-15-2022 Platelet mean volume (Bld) [Entitic vol] 9.0 fL 6.2-12.0 [facility] Work Phone: Determination of erythrocyte mean corpuscular volume (MCV)on 02-15-2022 MCV (RBC) [Entitic vol] 95.2 fL 81-99 [facility] Work Phone: Hematocrit Auto (Bld) [Volum e fraction]on 02-15-2022 Hematocrit (Bld) [Volume fraction] 35.8 % 37-47 [facility] Work Phone: Laboratory - Chemistry and C hemistry - challengeon 02-15-2022 CO2 [Moles/Vol] 26.0 mmol/L 21.0-32.0 [facility] Work Phone: Urea nitrogen/Creatinine [Mass ratio] 23.6 mg/mg 10-20 [facility] Work Phone: Laboratory - Hematology and Cell countson 02-15-2022 Erythrocyte distribution width (RBC) [Entitic vol] 46.2 fL 35.1-43.9 [facility] Work Phone: Erythrocyte distribution width (RBC) [Ratio] 13.3 % 11.6-14.6 [facility] Work Phone: Immature granulocytes/100 WBC (Bld) 0.300 % 0.0-0.9 [facility] Work Phone: Comment on above: IG% - Immature Granu locytes (promyelocytes, myelocytes and metamyelocytes) > 1% indicates that a LEFT SHIFT is Present. MCH (RBC) [Entitic mass] 30.3 pg 27.0-32.0 [facility] Work Phone: Nucleated RBC/100 WBC (Bld) [Ratio] 0 % 0-5 [facility] Work Phone: MCHC Auto (RBC) [Mass/Vol]on 02-15-2022 MCHC (RBC) [Mass/Vol] 31.8 g/dL 32-36 [facility] Work Phone: No Panel Informationon 02-15 Estimated Creatinine Clearance Calc 35.94 ml/min [facility] Work Phone: Estimated GFR (MDRD) Amer 64 mL/min >60 [facility] Work Phone: Comment on above: GFR Calc Estimated GFR (MDRD) Non-Af Amer 53 mL/min >60 [facility] Work Phone: Comment on above: Non- GFR Calc Platelets bldon 02-15-2022 Platelets (Bld) [#/Vol] 296 10*3/uL 150-450 [facility] Work Phone: Serum or plasma calcium candice urement (mass/volume)on 02-15-2022 Calcium [Mass/Vol] 9.7 mg/dL 8.5-10.1 [facility] Work Phone: Serum or plasma creatinine m easurement (mass/volume)on 02-15-2022 Creatinine [Mass/Vol] 1.06 mg/dL 0.55-1.02 [facility] Work Phone: Comment on above: The validity of the calculated GFR & GFRAA in patients over 70 years has not been determined. Clinical correlation is essential. Serum or plasma urea nitroge n measurement (mass/volume)on 02-15-2022 Urea nitrogen [Mass/Vol] 25 mg/dL 7-18 [facility] Work Phone: Thin prep Papanicolaou smear with manual screeningon 02-15-2022 Thin prep Papanicolaou smear with manual screening 6 5-15 [facility] Work Phone: Serum or plasma folate measu rement (mass/volume)on 02-11-2022 Folate [Mass/Vol] 12.20 ng/mL 3.1-55.4 [facility] Work Phone: Absolute lymphocyte counton 12-28-2021 Lymphocytes Auto (Unsp spec) [#/Vol] 1.79 10*3/uL 0.83-4.51 [facility] Work Phone: [phone] Basophil percentageon 2021 Basophils/100 WBC (Bld) 0.7 % 0-1 [facility] Work Phone: [phone] Chloride [Moles/Vol] 108 mmol/L 98-107 [facility] Work Phone: Eosinophils/100 WBC (Bld) 2.7 % 0-5 [facility] Work Phone: [phone] Glucose [Mass/Vol] 96 mg/dL 74-106 [facility] Work Phone: Neutrophils (Bld) [#/Vol] 1.8 10*3/uL 2.0-7.7 [facility] Work Phone: Neutrophils/100 WBC (Bld) 39.9 % 47-70 [facility] Work Phone: Potassium [Moles/Vol] 3.8 mmol/L 3.5-5.1 [facility] Work Phone: Sodium [Moles/Vol] 142 mmol/L 136-145 [facility] Work Phone: WBC (Bld) [#/Vol] 4.4 10*3/uL 4.4-11.0 [facility] Work Phone: Blood erythrocytes count (nu mber/volume)on 12-28-2021 RBC (Bld) [#/Vol] 3.53 10*6/uL 4.2-5.4 [facility] Work Phone: Blood hemoglobin measurement (mass/volume)on 12-28-2021 Hemoglobin (Bld) [Mass/Vol] 10.8 g/dL 12.0-15.0 [facility] Work Phone: Blood lymphocytes/100 leukoc yteson 12-28-2021 Lymphocytes/100 WBC (Bld) 40.6 % 19-41 [facility] Work Phone: Blood monocytes/100 leukocyt eson 12-28-2021 Monocytes/100 WBC (Bld) 15.6 % 0-10 [facility] Work Phone: Blood platelet mean volumeon 12-28-2021 Platelet mean volume (Bld) [Entitic vol] 8.8 fL 6.2-12.0 [facility] Work Phone: Determination of erythrocyte mean corpuscular volume (MCV)on 12-28-2021 MCV (RBC) [Entitic vol] 96.3 fL 81-99 [facility] Work Phone: Hematocrit Auto (Bld) [Volum e fraction]on 12-28-2021 Hematocrit (Bld) [Volume fraction] 34.0 % 37-47 [facility] Work Phone: Laboratory - Chemistry and C hemistry - challengeon 12-28-2021 CO2 [Moles/Vol] 29.0 mmol/L 21.0-32.0 [facility] Work Phone: [phone] Urea nitrogen/Creatinine [Mass ratio] 29.6 mg/mg 10-20 [facility] Work Phone: Laboratory - Hematology and Cell countson 12-28-2021 Erythrocyte distribution width (RBC) [Entitic vol] 49.6 fL 35.1-43.9 [facility] Work Phone: Erythrocyte distribution width (RBC) [Ratio] 13.9 % 11.6-14.6 [facility] Work Phone: Immature granulocytes/100 WBC (Bld) 0.500 % 0.0-0.9 [facility] Work Phone: Comment on above: IG% - Immature Granu locytes (promyelocytes, myelocytes and metamyelocytes) > 1% indicates that a LEFT SHIFT is Present. MCH (RBC) [Entitic mass] 30.6 pg 27.0-32.0 [facility] Work Phone: Nucleated RBC/100 WBC (Bld) [Ratio] 0 % 0-5 [facility] Work Phone: MCHC Auto (RBC) [Mass/Vol]on 12-28-2021 MCHC (RBC) [Mass/Vol] 31.8 g/dL 32-36 [facility] Work Phone: No Panel Informationon 12-28 Estimated Creatinine Clearance Calc 38.75 ml/min [facility] Work Phone: Estimated GFR (MDRD) Amer 114 mL/min >60 [facility] Work Phone: Comment on above: GFR Calc Estimated GFR (MDRD) Non-Af Amer 95 mL/min >60 [facility] Work Phone: Comment on above: Non- GFR Calc Platelets bldon 12-28-2021 Platelets (Bld) [#/Vol] 345 10*3/uL 150-450 [facility] Work Phone: Serum or plasma calcium candice urement (mass/volume)on 12-28-2021 Calcium [Mass/Vol] 8.8 mg/dL 8.5-10.1 [facility] Work Phone: Serum or plasma creatinine m easurement (mass/volume)on 12-28-2021 Creatinine [Mass/Vol] 0.64 mg/dL 0.55-1.02 [facility] Work Phone: Comment on above: The validity of the calculated GFR & GFRAA in patients over 70 years has not been determined. Clinical correlation is essential. Serum or plasma urea nitroge n measurement (mass/volume)on 12-28-2021 Urea nitrogen [Mass/Vol] 19 mg/dL 7-18 [facility] Work Phone: Thin prep Papanicolaou smear with manual screeningon 12-28-2021 Thin prep Papanicolaou smear with manual screening 5 5-15 [facility] Work Phone: Laboratory - Chemistry and C hemistry - challengeon 12-24-2021 Cobalamin (Vitamin B12) [Mass/Vol] 354 pg/mL 211-911 [facility] Work Phone: Absolute lymphocyte counton 12-21-2021 Lymphocytes Auto (Unsp spec) [#/Vol] 2.08 10*3/uL 0.83-4.51 [facility] Work Phone: Basophil percentageon 2021 Basophils/100 WBC (Bld) 0.8 % 0-1 [facility] Work Phone: Chloride [Moles/Vol] 103 mmol/L 98-107 [facility] Work Phone: [phone] Eosinophils/100 WBC (Bld) 2.3 % 0-5 [facility] Work Phone: [phone] Glucose [Mass/Vol] 100 mg/dL 74-106 [facility] Work Phone: Comment on above: Fasting Glucose resu lt from 100 to 125 mg/dL suggests IMPAIRED HOMEOSTASIS per A.D.A. criteria. Neutrophils (Bld) [#/Vol] 2.3 10*3/uL 2.0-7.7 [facility] Work Phone: Neutrophils/100 WBC (Bld) 43.7 % 47-70 [facility] Work Phone: Potassium [Moles/Vol] 3.7 mmol/L 3.5-5.1 [facility] Work Phone: Sodium [Moles/Vol] 139 mmol/L 136-145 [facility] Work Phone: WBC (Bld) [#/Vol] 5.2 10*3/uL 4.4-11.0 [facility] Work Phone: Blood erythrocytes count (nu mber/volume)on 12-21-2021 RBC (Bld) [#/Vol] 3.80 10*6/uL 4.2-5.4 [facility] Work Phone: Blood hemoglobin measurement (mass/volume)on 12-21-2021 Hemoglobin (Bld) [Mass/Vol] 11.3 g/dL 12.0-15.0 [facility] Work Phone: Blood lymphocytes/100 leukoc yteson 12-21-2021 Lymphocytes/100 WBC (Bld) 39.8 % 19-41 [facility] Work Phone: Blood monocytes/100 leukocyt eson 12-21-2021 Monocytes/100 WBC (Bld) 12.3 % 0-10 [facility] Work Phone: Blood platelet mean volumeon 12-21-2021 Platelet mean volume (Bld) [Entitic vol] 8.6 fL 6.2-12.0 [facility] Work Phone: Determination of erythrocyte mean corpuscular volume (MCV)on 12-21-2021 MCV (RBC) [Entitic vol] 96.3 fL 81-99 [facility] Work Phone: Hematocrit Auto (Bld) [Volum e fraction]on 12-21-2021 Hematocrit (Bld) [Volume fraction] 36.6 % 37-47 [facility] Work Phone: Laboratory - Chemistry and C hemistry - challengeon 12-21-2021 CO2 [Moles/Vol] 31.0 mmol/L 21.0-32.0 [facility] Work Phone: Urea nitrogen/Creatinine [Mass ratio] 28.6 mg/mg 10-20 [facility] Work Phone: Laboratory - Hematology and Cell countson 12-21-2021 Erythrocyte distribution width (RBC) [Entitic vol] 49.7 fL 35.1-43.9 [facility] Work Phone: Erythrocyte distribution width (RBC) [Ratio] 14.0 % 11.6-14.6 [facility] Work Phone: Immature granulocytes/100 WBC (Bld) 1.100 % 0.0-0.9 [facility] Work Phone: Comment on above: IG% - Immature Granu locytes (promyelocytes, myelocytes and metamyelocytes) > 1% indicates that a LEFT SHIFT is Present. MCH (RBC) [Entitic mass] 29.7 pg 27.0-32.0 [facility] Work Phone: Nucleated RBC/100 WBC (Bld) [Ratio] 0 % 0-5 [facility] Work Phone: MCHC Auto (RBC) [Mass/Vol]on 12-21-2021 MCHC (RBC) [Mass/Vol] 30.9 g/dL 32-36 [facility] Work Phone: No Panel Informationon 12-21 Estimated Creatinine Clearance Calc 38.75 ml/min [facility] Work Phone: Estimated GFR (MDRD) Amer 93 mL/min >60 [facility] Work Phone: Comment on above: GFR Calc Estimated GFR (MDRD) Non-Af Amer 77 mL/min >60 [facility] Work Phone: Comment on above: Non- GFR Calc Platelets bldon 12-21-2021 Platelets (Bld) [#/Vol] 426 10*3/uL 150-450 [facility] Work Phone: Serum or plasma calcium candice urement (mass/volume)on 12-21-2021 Calcium [Mass/Vol] 9.4 mg/dL 8.5-10.1 [facility] Work Phone: Serum or plasma creatinine m easurement (mass/volume)on 12-21-2021 Creatinine [Mass/Vol] 0.77 mg/dL 0.55-1.02 [facility] Work Phone: Comment on above: The validity of the calculated GFR & GFRAA in patients over 70 years has not been determined. Clinical correlation is essential. Serum or plasma urea nitroge n measurement (mass/volume)on 12-21-2021 Urea nitrogen [Mass/Vol] 22 mg/dL 7-18 [facility] Work Phone: Thin prep Papanicolaou smear with manual screeningon 12-21-2021 Thin prep Papanicolaou smear with manual screening 5 5-15 [facility] Work Phone: Basophil percentageon 2021 Basophil percentage 0 SEEN /hpf 0-5 [facility] Work Phone: Basophil percentage 4.7 mg/dL 2.5-4.9 [facility] Work Phone: Bilirubin [Mass/Vol] 0.20 mg/dL 0.20-1.00 [facility] Work Phone: Comment on above: For patients on eltr ombopag therapy, use of Dimension [place] TBIL is not recommended. Protein [Mass/Vol] 6.9 g/dL 6.4-8.2 [facility] Work Phone: Bilirubin Test strip Ql (U)o n 12-20-2021 Bilirubin Ql (U) Negative Negative [facility] Work Phone: Ketones Test strip Ql (U)on 12-20-2021 Ketones Ql (U) Negative Negative [facility] Work Phone: Laboratory - Chemistry and C hemistry - challengeon 12-20-2021 ALP [Catalytic activity/Vol] 76 U/L 45-117 [facility] Work Phone: ALT [Catalytic activity/Vol] 50 U/L 13-56 [facility] Work Phone: Globulin (S) [Mass/Vol] 3.8 g/dL 2.2-4.2 [facility] Work Phone: Mucus LM Ql (Urine sed)on Mucus Ql (Urine sed) 0 SEEN /hpf [facility] Work Phone: Nitrite Test strip Ql (U)on 12-20-2021 Nitrite Ql (U) Negative Negative [facility] Work Phone: Protein Test strip Ql (U)on 12-20-2021 Protein Ql (U) Negative Negative [facility] Work Phone: Serum or plasma albumin candice urement (mass/volume)on 12-20-2021 Albumin [Mass/Vol] 3.1 g/dL 3.2-5.0 [facility] Work Phone: Serum or plasma albumin/glob ulin mass ratioon 12-20-2021 Albumin/Globulin [Mass ratio] 0.8 {ratio} 0.9-2.4 [facility] Work Phone: Squamous epithelial cells de tection in urine sediment by light microscopyon 12-20-2021 Epithelial cells.squamous LM Ql (Urine sed) 0-5 SEEN /hpf 5-10 [facility] Work Phone: Thin prep Papanicolaou smear with manual screeningon 12-20-2021 Thin prep Papanicolaou smear with manual screening 35 U/L 15-37 [facility] Work Phone: Urine blood detectionon RBC Ql (U) Negative Negative [facility] Work Phone: RBC Ql (U) 0 SEEN /hpf 0-5 [facility] Work Phone: Urine clarityon 12-20-2021 Clarity (U) Clear Clear [facility] Work Phone: Urine color determinationon 12-20-2021 Color (U) Yellow Yellow [facility] Work Phone: Urine glucose detectionon Glucose Ql (U) Normal mg/dl Normal [facility] Work Phone: Urine leukocyte esterase det ection by dipstickon 12-20-2021 Leukocyte esterase Test strip Ql (U) Negative Negative [facility] Work Phone: Urine pHon 12-20-2021 pH (U) 6.0 [pH] 5.0 - 8.0 [facility] Work Phone: Urine sediment bacteria coun t by microscopy (number/high power field)on 12-20-2021 Bacteria LM.HPF (Urine sed) [#/Area] 0 /[HPF] None Seen [facility] Work Phone: Urine specific gravity measu rementon 12-20-2021 Specific gravity (U) [Rel density] 1.015 1.002-1.03 0 [facility] Work Phone: Urobilinogen Auto test strip Ql (U)on 12-20-2021 Urobilinogen Ql (U) Normal mg/dl Normal [facility] Work Phone: Laboratory - Chemistry and C hemistry - challengeon 12-17-2021 Magnesium [Mass/Vol] 2.0 mg/dL 1.6-2.6 [facility] Work Phone: Basophil percentageon 2021 Chloride [Moles/Vol] 109 mmol/L 98-107 [facility] Work Phone: Glucose [Mass/Vol] 103 mg/dL 74-106 [facility] Work Phone: Comment on above: Fasting Glucose resu lt from 100 to 125 mg/dL suggests IMPAIRED HOMEOSTASIS per A.D.A. criteria. Potassium [Moles/Vol] 3.4 mmol/L 3.5-5.1 [facility] Work Phone: Sodium [Moles/Vol] 138 mmol/L 136-145 [facility] Work Phone: Laboratory - Chemistry and C hemistry - challengeon 12-13-2021 CK [Catalytic activity/Vol] 839 U/L 26-192 [facility] Work Phone: CO2 [Moles/Vol] 21.0 mmol/L 21.0-32.0 [facility] Work Phone: Urea nitrogen/Creatinine [Mass ratio] 14.4 mg/mg 10-20 [facility] Work Phone: No Panel Informationon 12-13 Estimated Creatinine Clearance Calc 38.75 ml/min [facility] Work Phone: Estimated GFR (MDRD) Amer 135 mL/min >60 [facility] Work Phone: Comment on above: GFR Calc Estimated GFR (MDRD) Non-Af Amer 111 mL/min >60 [facility] Work Phone: Comment on above: Non- GFR Calc Serum or plasma calcium candice urement (mass/volume)on 12-13-2021 Calcium [Mass/Vol] 7.6 mg/dL 8.5-10.1 [facility] Work Phone: Serum or plasma creatinine m easurement (mass/volume)on 12-13-2021 Creatinine [Mass/Vol] 0.56 mg/dL 0.55-1.02 [facility] Work Phone: Comment on above: The validity of the calculated GFR & GFRAA in patients over 70 years has not been determined. Clinical correlation is essential. Serum or plasma urea nitroge n measurement (mass/volume)on 12-13-2021 Urea nitrogen [Mass/Vol] 8 mg/dL 7-18 [facility] Work Phone: Thin prep Papanicolaou smear with manual screeningon 12-13-2021 Thin prep Papanicolaou smear with manual screening 8 5-15 [facility] Work Phone: Basophil percentageon 2021 Basophil percentage 1.6 mg/dL 2.5-4.9 [facility] Work Phone: Laboratory - Chemistry and C hemistry - challengeon 12-12-2021 Magnesium [Mass/Vol] 2.3 mg/dL 1.6-2.6 [facility] Work Phone: Absolute lymphocyte counton 12-11-2021 Lymphocytes Auto (Unsp spec) [#/Vol] 1.05 10*3/uL 0.83-4.51 [facility] Work Phone: Basophil percentageon 2021 Basophils/100 WBC (Bld) 0.1 % 0-1 [facility] Work Phone: [phone] Bilirubin [Mass/Vol] 0.30 mg/dL 0.20-1.00 [facility] Work Phone: [phone] Comment on above: For patients on eltr ombopag therapy, use of Dimension [place] TBIL is not recommended. Eosinophils/100 WBC (Bld) 0.0 % 0-5 [facility] Work Phone: [phone] Neutrophils (Bld) [#/Vol] 10.8 10*3/uL 2.0-7.7 [facility] Work Phone: Neutrophils/100 WBC (Bld) 78.6 % 47-70 [facility] Work Phone: Protein [Mass/Vol] 6.3 g/dL 6.4-8.2 [facility] Work Phone: WBC (Bld) [#/Vol] 13.8 10*3/uL 4.4-11.0 [facility] Work Phone: [phone] Blood erythrocytes count (nu mber/volume)on 12-11-2021 RBC (Bld) [#/Vol] 3.71 10*6/uL 4.2-5.4 [facility] Work Phone: Blood hemoglobin measurement (mass/volume)on 12-11-2021 Hemoglobin (Bld) [Mass/Vol] 11.1 g/dL 12.0-15.0 [facility] Work Phone: [phone] Blood lymphocytes/100 leukoc yteson 12-11-2021 Lymphocytes/100 WBC (Bld) 7.6 % 19-41 [facility] Work Phone: [phone] Blood monocytes/100 leukocyt eson 12-11-2021 Monocytes/100 WBC (Bld) 13.1 % 0-10 [facility] Work Phone: Blood platelet mean volumeon 12-11-2021 Platelet mean volume (Bld) [Entitic vol] 9.4 fL 6.2-12.0 [facility] Work Phone: Determination of erythrocyte mean corpuscular volume (MCV)on 12-11-2021 MCV (RBC) [Entitic vol] 91.9 fL 81-99 [facility] Work Phone: Hematocrit Auto (Bld) [Volum e fraction]on 12-11-2021 Hematocrit (Bld) [Volume fraction] 34.1 % 37-47 [facility] Work Phone: Laboratory - Chemistry and C hemistry - challengeon 12-11-2021 ALP [Catalytic activity/Vol] 80 U/L 45-117 [facility] Work Phone: ALT [Catalytic activity/Vol] 45 U/L 13-56 [facility] Work Phone: Globulin (S) [Mass/Vol] 3.5 g/dL 2.2-4.2 [facility] Work Phone: Laboratory - Hematology and Cell countson 12-11-2021 Erythrocyte distribution width (RBC) [Entitic vol] 47.1 fL 35.1-43.9 [facility] Work Phone: Erythrocyte distribution width (RBC) [Ratio] 13.9 % 11.6-14.6 [facility] Work Phone: Immature granulocytes/100 WBC (Bld) 0.600 % 0.0-0.9 [facility] Work Phone: Comment on above: IG% - Immature Granu locytes (promyelocytes, myelocytes and metamyelocytes) > 1% indicates that a LEFT SHIFT is Present. MCH (RBC) [Entitic mass] 29.9 pg 27.0-32.0 [facility] Work Phone: Nucleated RBC/100 WBC (Bld) [Ratio] 0 % 0-5 [facility] Work Phone: MCHC Auto (RBC) [Mass/Vol]on 12-11-2021 MCHC (RBC) [Mass/Vol] 32.6 g/dL 32-36 [facility] Work Phone: Platelets bldon 12-11-2021 Platelets (Bld) [#/Vol] 276 10*3/uL 150-450 [facility] Work Phone: Review by pathologiston 11-14 Pathologist review Sonny (Unsp spec) [Interp] Reviewed [facility] Work Phone: Comment on above: Previous reported re sult: Pham dean Edited by: MAXI on 12/11/21:1238Neutrophilic leukocytosis.Clinical correlation necessary.Jagdish Helton M.D. 12/11/21 AMENDED REPORT 12/11/21 1238 PATH REV previously reported as: Pham dean Serum or plasma albumin candice urement (mass/volume)on 12-11-2021 Albumin [Mass/Vol] 2.8 g/dL 3.2-5.0 [facility] Work Phone: Serum or plasma albumin/glob ulin mass ratioon 12-11-2021 Albumin/Globulin [Mass ratio] 0.8 {ratio} 0.9-2.4 [facility] Work Phone: Serum procalcitonin measurem enton 12-11-2021 Procalcitonin [Mass/Vol] 4.19 ng/mL 0.00-0.09 [facility] Work Phone: Comment on above: A procalcitonin [...] smear with manual screening 123 U/L 15-37 [facility] Work Phone: Absolute lymphocyte counton 12-10-2021 Lymphocytes Auto (Unsp spec) [#/Vol] 1.00 10*3/uL 0.83-4.51 [facility] Work Phone: Amorphous sediment detection in urine sediment by light microscopyon 12-10-2021 Amorphous sediment LM Ql (Urine sed) 2+ [facility] Work Phone: Basophil percentageon 2021 Basophil percentage 50-100 SEEN /hpf 0-5 [facility] Work Phone: Basophils/100 WBC (Bld) 0.1 % 0-1 [facility] Work Phone: Bilirubin [Mass/Vol] 0.60 mg/dL 0.20-1.00 [facility] Work Phone: Comment on above: For patients on eltr ombopag therapy, use of Dimension [place] TBIL is not recommended. Chloride [Moles/Vol] 103 mmol/L 98-107 [facility] Work Phone: Eosinophils/100 WBC (Bld) 0.0 % 0-5 [facility] Work Phone: Glucose [Mass/Vol] 130 mg/dL 74-106 [facility] Work Phone: Comment on above: Fasting Glucose resu lt greater than or equal to 126 mg/dL suggests DIABETES MELLITUS per A.D.A. criteria. Neutrophils (Bld) [#/Vol] 10.9 10*3/uL 2.0-7.7 [facility] Work Phone: Neutrophils/100 WBC (Bld) 79.5 % 47-70 [facility] Work Phone: Potassium [Moles/Vol] 2.7 mmol/L 3.5-5.1 [facility] Work Phone: Comment on above: Critical Result(s) C alled at: 23:42:52 12/10/2021 by: CRISTAL Roberts ACCOUNT PL[employer]NER. Results read back by same. Protein [Mass/Vol] 7.2 g/dL 6.4-8.2 [facility] Work Phone: Sodium [Moles/Vol] 137 mmol/L 136-145 [facility] Work Phone: WBC (Bld) [#/Vol] 13.7 10*3/uL 4.4-11.0 [facility] Work Phone: Bilirubin Test strip Ql (U)o n 12-10-2021 Bilirubin Ql (U) Negative Negative [facility] Work Phone: Blood erythrocytes count (nu mber/volume)on 12-10-2021 RBC (Bld) [#/Vol] 4.08 10*6/uL 4.2-5.4 [facility] Work Phone: Blood hemoglobin measurement (mass/volume)on 12-10-2021 Hemoglobin (Bld) [Mass/Vol] 12.3 g/dL 12.0-15.0 [facility] Work Phone: Blood lymphocytes/100 leukoc yteson 12-10-2021 Lymphocytes/100 WBC (Bld) 7.3 % 19-41 [facility] Work Phone: Blood manual differential co mment interpretation (narrative result)on 12-10-2021 Manual differential comment Sonny (Bld) [Interp] SCANNED [facility] Work Phone: Comment on above: MONOCYTOSIS NOTED Blood monocytes/100 leukocyt eson 12-10-2021 Monocytes/100 WBC (Bld) 12.5 % 0-10 [facility] Work Phone: Blood platelet mean volumeon 12-10-2021 Platelet mean volume (Bld) [Entitic vol] 9.2 fL 6.2-12.0 [facility] Work Phone: Determination of erythrocyte mean corpuscular volume (MCV)on 12-10-2021 MCV (RBC) [Entitic vol] 89.5 fL 81-99 [facility] Work Phone: Hematocrit Auto (Bld) [Volum e fraction]on 12-10-2021 Hematocrit (Bld) [Volume fraction] 36.5 % 37-47 [facility] Work Phone: Ketones Test strip Ql (U)on 12-10-2021 Ketones Ql (U) 150 mg/dl Negative [facility] Work Phone: Comment on above: CRITICAL VALUE *HCRI TICAL VALUE VERIFIED. CALLED TO Lida ROBERTS RN ER12/11/21 0013 Cristal Nicholas.RESULTS READ BACK BY SAME. Laboratory - Chemistry and C hemistry - challengeon 12-10-2021 ALP [Catalytic activity/Vol] 95 U/L 45-117 [facility] Work Phone: ALT [Catalytic activity/Vol] 48 U/L 13-56 [facility] Work Phone: CK [Catalytic activity/Vol] 5736 U/L 26-192 [facility] Work Phone: CO2 [Moles/Vol] 20.0 mmol/L 21.0-32.0 [facility] Work Phone: Globulin (S) [Mass/Vol] 4.0 g/dL 2.2-4.2 [facility] Work Phone: Magnesium [Mass/Vol] 2.2 mg/dL 1.6-2.6 [facility] Work Phone: Urea nitrogen/Creatinine [Mass ratio] 30.9 mg/mg 10-20 [facility] Work Phone: Laboratory - Hematology and Cell countson 12-10-2021 Erythrocyte distribution width (RBC) [Entitic vol] 45.7 fL 35.1-43.9 [facility] Work Phone: Erythrocyte distribution width (RBC) [Ratio] 13.9 % 11.6-14.6 [facility] Work Phone: Immature granulocytes/100 WBC (Bld) 0.600 % 0.0-0.9 [facility] Work Phone: Comment on above: IG% - Immature Granu locytes (promyelocytes, myelocytes and metamyelocytes) > 1% indicates that a LEFT SHIFT is Present. MCH (RBC) [Entitic mass] 30.1 pg 27.0-32.0 [facility] Work Phone: Nucleated RBC/100 WBC (Bld) [Ratio] 0 % 0-5 [facility] Work Phone: MCHC Auto (RBC) [Mass/Vol]on 12-10-2021 MCHC (RBC) [Mass/Vol] 33.7 g/dL 32-36 [facility] Work Phone: Mucus LM Ql (Urine sed)on Mucus Ql (Urine sed) 0 SEEN /hpf [facility] Work Phone: Nitrite Test strip Ql (U)on 12-10-2021 Nitrite Ql (U) Negative Negative [facility] Work Phone: No Panel Informationon 12-10 Estimated Creatinine Clearance Calc 48.07 ml/min [facility] Work Phone: Estimated GFR (MDRD) Amer 84 mL/min >60 [facility] Work Phone: Comment on above: GFR Calc Estimated GFR (MDRD) Non-Af Amer 69 mL/min >60 [facility] Work Phone: Comment on above: Non- GFR Calc Platelets bldon 12-10-2021 Platelets (Bld) [#/Vol] 283 10*3/uL 150-450 [facility] Work Phone: Protein Test strip Ql (U)on 12-10-2021 Protein Ql (U) 100 mg/dl Negative [facility] Work Phone: Review by pathologiston 11-14 Pathologist review Sonny (Unsp spec) [Interp] May foll [facility] Work Phone: Serum or plasma albumin candice urement (mass/volume)on 12-10-2021 Albumin [Mass/Vol] 3.2 g/dL 3.2-5.0 [facility] Work Phone: Serum or plasma albumin/glob ulin mass ratioon 12-10-2021 Albumin/Globulin [Mass ratio] 0.8 {ratio} 0.9-2.4 [facility] Work Phone: Serum or plasma calcium candice urement (mass/volume)on 12-10-2021 Calcium [Mass/Vol] 8.7 mg/dL 8.5-10.1 [facility] Work Phone: Serum or plasma creatinine m easurement (mass/volume)on 12-10-2021 Creatinine [Mass/Vol] 0.84 mg/dL 0.55-1.02 [facility] Work Phone: Comment on above: The validity of the calculated GFR & GFRAA in patients over 70 years has not been determined. Clinical correlation is essential. Serum or plasma urea nitroge n measurement (mass/volume)on 12-10-2021 Urea nitrogen [Mass/Vol] 26 mg/dL 7-18 [facility] Work Phone: Squamous epithelial cells de tection in urine sediment by light microscopyon 12-10-2021 Epithelial cells.squamous LM Ql (Urine sed) 0 SEEN /hpf 5-10 [facility] Work Phone: Thin prep Papanicolaou smear with manual screeningon 12-10-2021 Thin prep Papanicolaou smear with manual screening 133 U/L 15-37 [facility] Work Phone: Thin prep Papanicolaou smear with manual screening 14 5-15 [facility] Work Phone: Urine blood detectionon 11-14 RBC Ql (U) 250 /ul Negative [facility] Work Phone: RBC Ql (U) 0-5 SEEN /hpf 0-5 [facility] Work Phone: Urine clarityon 12-10-2021 Clarity (U) Sl. Cloudy Clear [facility] Work Phone: Urine color determinationon 12-10-2021 Color (U) Yellow Yellow [facility] Work Phone: Urine glucose detectionon Glucose Ql (U) Normal mg/dl Normal [facility] Work Phone: Urine leukocyte esterase det ection by dipstickon 12-10-2021 Leukocyte esterase Test strip Ql (U) 100 /ul Negative [facility] Work Phone: Urine pHon 12-10-2021 pH (U) 6.0 [pH] 5.0 - 8.0 [facility] Work Phone: Urine sediment bacteria coun t by microscopy (number/high power field)on 12-10-2021 Bacteria LM.HPF (Urine sed) [#/Area] 4 /[HPF] None Seen [facility] Work Phone: Urine specific gravity measu rementon 12-10-2021 Specific gravity (U) [Rel density] 1.020 1.002-1.03 0 [facility] Work Phone: Urobilinogen Auto test strip Ql (U)on 12-10-2021 Urobilinogen Ql (U) 1 mg/dl Normal [facility] Work Phone: CT Up Ext w/o Contrast Lefto n 07-03-2020 CT Up Ext w/o Contrast Left Patient Name: SAPNA BULLARD Computed Tomography ACCESSION EXAM DATE/TIME PROCEDURE ORDERING PROVIDER [id number] 07/03/2020 13:[address] Up Ext w/o Contrast 5926 -DAX SHANKS Left CPT code 96478 Reason For Exam (CT Up Ext w/o [...] Transcribed Date and Time: 07/04/2020 11:26 Normal [facility] Culture, urine Bacteria identified Cx Nom (U) Presumptive E. coli [facility] Work Phone: Bacteria identified Cx Nom (U) Positive [facility] Work Phone: Laboratory - Microbiology an d Antimicrobial susceptibility Bacteria identified Cx Nom (Bld) No growth in 5 days. [facility] Work Phone: Vital Signs Date Time Vital Sign Value Performing Clinician Facility 03-14-2025 13:24-0400 Body height 165.[address] Genevieve Wu MD Work Phone: [facility] 02-19-2025 08:52-0400 Body temperature 97.6 [degF] Dr. Genevieve Wu MD Work Phone: [facility] 02-19-2025 08:52-0400 Diastolic blood pressure 54 mm[Hg] Dr. Genevieve Wu MD Work Phone: [facility] 02-19-2025 08:52-0400 Heart rate 85 /min Dr. Genevieve Wu MD Work Phone: [facility] 02-19-2025 08:52-0400 Respiratory rate 18 /min Dr. Genevieve Wu MD Work Phone: [facility] 02-19-2025 08:52-0400 SaO2% (BldA) [Mass fraction] 98 % Dr. Genevieve Wu MD Work Phone: [facility] 02-19-2025 08:52-0400 Systolic blood pressure 113 mm[Hg] Dr. Genevieve Wu MD Work Phone: [facility] 02-14-2025 16:26-0400 Body height 165.[address] Genevieve Wu MD Work Phone: [facility] 02-14-2025 16:26-0400 Body weight 55.[address] Genevieve Wu MD Work Phone: [facility] 02-14-2025 15:37-0400 Body mass index (BMI) [Ratio] 20.2 kg/m2 Dr. Genevieve Wu MD Work Phone: [facility] 02-14-2025 15:00-0400 Body temperature 98.9 [degF] Dr. Genevieve Wu MD Work Phone: [facility] 02-14-2025 15:00-0400 Diastolic blood pressure 78 mm[Hg] Dr. Genevieve Wu MD Work Phone: [facility] 02-14-2025 15:00-0400 Heart rate 89 /min Dr. Genevieve Wu MD Work Phone: [facility] 02-14-2025 15:00-0400 Respiratory rate 16 /min Dr. Genevieve Wu MD Work Phone: [facility] 02-14-2025 15:00-0400 SaO2% (BldA) [Mass fraction] 98 % Dr. eGnevieve Wu MD Work Phone: [facility] 02-14-2025 15:00-0400 Systolic blood pressure 118 mm[Hg] Dr. Genevieve Wu MD Work Phone: [facility] 02-14-2025 09:36-0400 Body height 165.[address] Genevieve Wu MD Work Phone: [facility] 02-14-2025 09:36-0400 Body mass index (BMI) [Ratio] 21.3 kg/m2 Dr. Genevieve Wu MD Work Phone: [facility] 02-14-2025 09:36-0400 Body weight 58.[address] Genevieve Wu MD Work Phone: [facility] 12-07-2024 05:45-0400 Body mass index (BMI) [Ratio] 19.8 kg/m2 Dr. Genevieve Wu MD Work Phone: [facility] 12-07-2024 05:45-0400 Body temperature 96.4 [degF] Dr. Genevieve Wu MD Work Phone: [facility] 12-07-2024 05:45-0400 Body weight 53.[address] Genevieve Wu MD Work Phone: [facility] 12-07-2024 05:45-0400 Diastolic blood pressure 58 mm[Hg] Dr. Genevieve Wu MD Work Phone: [facility] 12-07-2024 05:45-0400 Heart rate 49 /min Dr. Genevieve Wu MD Work Phone: [facility] 12-07-2024 05:45-0400 Respiratory rate 16 /min Dr. Genevieve Wu MD Work Phone: [facility] 12-07-2024 05:45-0400 SaO2% (BldA) [Mass fraction] 95 % Dr. Genevieve Wu MD Work Phone: [facility] 12-07-2024 05:45-0400 Systolic blood pressure 93 mm[Hg] Dr. Genevieve Wu MD Work Phone: [facility] 11-29-2024 10:09-0400 Body height 165.[address] Genevieve Wu MD Work Phone: [facility] 11-29-2024 10:09-0400 Body mass index (BMI) [Ratio] 19.6 kg/m2 Dr. Genevieve Wu MD Work Phone: [facility] 11-29-2024 10:09-0400 Body temperature 94.6 [degF] Dr. Genevieve Wu MD Work Phone: [facility] 11-29-2024 10:09-0400 Body weight 53.[address] Genevieve Wu MD Work Phone: [facility] 11-29-2024 10:09-0400 Diastolic blood pressure 64 mm[Hg] Dr. Genevieve Wu MD Work Phone: [facility] 11-29-2024 10:09-0400 Heart rate 55 /min Dr. Genevieve Wu MD Work Phone: [facility] 11-29-2024 10:09-0400 Respiratory rate 16 /min Dr. Genevieve Wu MD Work Phone: [facility] 11-29-2024 10:09-0400 SaO2% (BldA) [Mass fraction] 92 % Dr. Genevieve Wu MD Work Phone: [facility] 11-29-2024 10:09-0400 Systolic blood pressure 125 mm[Hg] Dr. Genevieve Wu MD Work Phone: [facility] 10-05-2024 08:22-0400 Body mass index (BMI) [Ratio] 19.6 kg/m2 Dr. Nicci Lemus MD Work Phone: [facility] 10-05-2024 08:22-0400 Body weight 53.[address] Nicci Lemus MD Work Phone: [facility] 10-05-2024 08:22-0400 Diastolic blood pressure 65 mm[Hg] Dr. Nicci Lemus MD Work Phone: [facility] 10-05-2024 08:22-0400 Heart rate 75 /min Dr. Nicci Lemus MD Work Phone: [facility] 10-05-2024 08:22-0400 Respiratory rate 18 /min Dr. Nicci Lemus MD Work Phone: [facility] 10-05-2024 08:22-0400 Systolic blood pressure 111 mm[Hg] Dr. Nicci Lemus MD Work Phone: [facility] 09-08-2024 08:39-0400 Body mass index (BMI) [Ratio] 19.4 kg/m2 Dr. Nicci Lemus MD Work Phone: [facility] 09-08-2024 08:39-0400 Body temperature 97.5 [degF] Dr. Nicci Lemus MD Work Phone: [facility] 09-08-2024 08:39-0400 Body weight 53.[address] Nicci Lemus MD Work Phone: [facility] 09-08-2024 08:39-0400 Diastolic blood pressure 77 mm[Hg] Dr. Nicci Lemus MD Work Phone: [facility] 09-08-2024 08:39-0400 Heart rate 72 /min Dr. Nicci Lemus MD Work Phone: [facility] 09-08-2024 08:39-0400 Respiratory rate 18 /min Dr. Nicci Lemus MD Work Phone: [facility] 09-08-2024 08:39-0400 SaO2% (BldA) [Mass fraction] 99 % Dr. Nicci Lemus MD Work Phone: [facility] 09-08-2024 08:39-0400 Systolic blood pressure 121 mm[Hg] Dr. Nicci Lemus MD Work Phone: [facility] 07-19-2024 09:58-0500 Body height 165.[address] Nicci Lemus MD Work Phone: [facility] 07-19-2024 09:58-0500 Body mass index (BMI) [Ratio] 18.3 kg/m2 Dr. Nicci Lemus MD Work Phone: [facility] 07-19-2024 09:58-0500 Body temperature 98.6 [degF] Dr. Nicci Lemus MD Work Phone: [facility] 07-19-2024 09:58-0500 Body weight 49.[address] Nicci Lemus MD Work Phone: [facility] 07-19-2024 09:58-0500 Diastolic blood pressure 74 mm[Hg] Dr. Nicci Lemus MD Work Phone: [facility] 07-19-2024 09:58-0500 Heart rate 89 /min Dr. Nicci Lemus MD Work Phone: [facility] 07-19-2024 09:58-0500 Respiratory rate 15 /min Dr. Nicci Lemus MD Work Phone: [facility] 07-19-2024 09:58-0500 SaO2% (BldA) [Mass fraction] 96 % Dr. Nicci Lemus MD Work Phone: [facility] 07-19-2024 09:58-0500 Systolic blood pressure 108 mm[Hg] Dr. Nicci Lemus MD Work Phone: [facility] 07-21-2023 08:45-0500 Body temperature 98 [degF] Dr. Nicholas Cohen Work Phone: [facility] 07-21-2023 08:45-0500 Body weight 48.[address] Nicholas Cohen Work Phone: [facility] 07-21-2023 08:45-0500 Diastolic blood pressure 82 mm[Hg] Dr. Nicholas Cohen Work Phone: [facility] 07-21-2023 08:45-0500 Heart rate 70 /min Dr. Nicholas Cohen Work Phone: [facility] 07-21-2023 08:45-0500 Respiratory rate 15 /min Dr. Nicholas Cohen Work Phone: [facility] 07-21-2023 08:45-0500 SaO2% (BldA) [Mass fraction] 98 % Dr. Nicholas Cohen Work Phone: [facility] 07-21-2023 08:45-0500 Systolic blood pressure 120 mm[Hg] Dr. Nicholas Cohen Work Phone: [facility] 05-14-2023 15:37-0500 Body height 156.21 cm Jaida Sanchez RN [email or web address] 05-14-2023 15:37-0500 Body mass index (BMI) [Ratio] 19.61 kg/m2 Ja[facility] 05-14-2023 15:37-0500 Body surface area Derived from formula 1.45 m2 Jaida Sanchez [facility]. 05-14-2023 15:37-0500 Body weight 47.85 kg Jaida Sanchez [facility] 05-14-2023 15:37-0500 Diastolic blood pressure 68 mm[Hg] Jaida Sanchez RN [email or web address] Comment on above: Patient Position: Sitting; Cuff Location : Left Arm; Cuff Size: Standard 05-14-2023 15:37-0500 Heart rate 53 /min Jaida Sanchez RN [facility]. Comment on above: Pattern: Regular 05-14-2023 15:37-0500 Systolic blood pressure 117 mm[Hg] Jaida Sanchez RN [facility]; [facility]. Comment on above: Patient Position: Sitting; Cuff Location : Left Arm; Cuff Size: Standard 04-23-2023 11:48-0500 Body temperature 97.3 [degF] Dr. Lalo Palm Work Phone: [facility] 04-23-2023 11:48-0500 Diastolic blood pressure 68 mm[Hg] Dr. Lalo Palm Work Phone: [facility] 04-23-2023 11:48-0500 Heart rate 69 /min Dr. Lalo Palm Work Phone: [facility] 04-23-2023 11:48-0500 Respiratory rate 16 /min Dr. Lalo Palm Work Phone: [facility] 04-23-2023 11:48-0500 SaO2% (BldA) [Mass fraction] 97 % Dr. Lalo Palm Work Phone: [facility] 04-23-2023 11:48-0500 Systolic blood pressure 124 mm[Hg] Dr. Lalo Palm Work Phone: [facility] 04-23-2023 05:13-0500 Body mass index (BMI) [Ratio] 18.1 kg/m2 Dr. Lalo Palm Work Phone: [facility] 04-23-2023 05:13-0500 Body weight 49.[address] Lalo Palm Work Phone: [facility] 04-20-2023 14:09-0500 Body height [address] Lalo Palm Work Phone: [facility] 04-05-2023 11:42-0400 Body mass index (BMI) [Ratio] 17.8 kg/m2 Dr. Lalo Palm Work Phone: [facility] 04-05-2023 11:42-0400 Body temperature 97.8 [degF] Dr. Lalo Palm Work Phone: [facility] 04-05-2023 11:42-0400 Body weight 47.[address] Lalo Palm Work Phone: [facility] 04-05-2023 11:42-0400 Diastolic blood pressure 64 mm[Hg] Dr. Lalo Palm Work Phone: [facility] 04-05-2023 11:42-0400 Heart rate 50 /min Dr. Lalo Palm Work Phone: [facility] 04-05-2023 11:42-0400 Respiratory rate 14 /min Dr. Lalo Palm Work Phone: [facility] 04-05-2023 11:42-0400 SaO2% (BldA) [Mass fraction] 91 % Dr. Lalo Palm Work Phone: [facility] 04-05-2023 11:42-0400 Systolic blood pressure 106 mm[Hg] Dr. Lalo Palm Work Phone: [facility] 03-17-2023 08:45-0400 Body mass index (BMI) [Ratio] 18.3 kg/m2 Dr. Lalo Palm Work Phone: [facility] 03-17-2023 08:45-0400 Body temperature 98.8 [degF] Dr. Lalo Palm Work Phone: [facility] 03-17-2023 08:45-0400 Body weight 48.[address] Lalo Palm Work Phone: [facility] 03-17-2023 08:45-0400 Diastolic blood pressure 70 mm[Hg] Dr. Lalo Palm Work Phone: [facility] 03-17-2023 08:45-0400 Heart rate 71 /min Dr. Lalo Palm Work Phone: [facility] 03-17-2023 08:45-0400 Respiratory rate 16 /min Dr. Lalo Palm Work Phone: [facility] 03-17-2023 08:45-0400 SaO2% (BldA) [Mass fraction] 95 % Dr. Lalo Palm Work Phone: [facility] 03-17-2023 08:45-0400 Systolic blood pressure 128 mm[Hg] Dr. Lalo Palm Work Phone: [facility] 11-13-2022 10:17-0400 Body height 156.21 cm Sisi Thurman RN [facility], [facility].; [facility], [facility]. 11-13-2022 10:17-0400 Body mass index (BMI) [Ratio] 21.19 kg/m2 Sisi Thurman RN [facility]. 11-13-2022 10:17-0400 Body surface area Derived from formula 1.5 m2 Sisi Thurman RN [facility], [facility].; [facility]. 11-13-2022 10:17-0400 Body weight 51.71 kg Sisi Thurman RN [facility], [facility].; [facility], [facility]. 11-13-2022 10:17-0400 Diastolic blood pressure 78 mm[Hg] Sisi Thurman RN [email or web address] [email or web address]. Comment on above: Patient Position: Sitting; Cuff Location : Left Arm; Cuff Size: Standard 11-13-2022 10:17-0400 Heart rate 57 /min Sisi Thurman RN [facility], [facility].; [employer] [email or web address]. Comment on above: Pattern: Regular 11-13-2022 10:17-0400 Systolic blood pressure 127 mm[Hg] Sisi Thurman RN [email or web address] [email or web address]. Comment on above: Patient Position: Sitting; Cuff Location : Left Arm; Cuff Size: Standard 06-30-2022 09:15-0500 Body height 156.21 cm DUNCAN bead ButtonER ROLL LINE OPERATOR-C Work Phone: [facility]6APT; [place] [email or web address] [facility] Leyva [employer] 06-30-2022 09:15-0500 Body mass index (BMI) [Ratio] 20.82 kg/m2 DUNCAN bead ButtonER ROLL LINE OPERATOR-C Work Phone: [facility]6APT; [email or web address]. 06-30-2022 09:15-0500 Body surface area Derived from formula 1.49 m2 DUNCAN bead ButtonER ROLL LINE OPERATOR-C Work Phone: [facility]6APT; [facility] Looklet. 06-30-2022 09:15-0500 Body weight 50.8 kg DUNCAN bead ButtonER ROLL LINE OPERATOR-C Work Phone: [facility]6APT; [facility] [employer]. 06-30-2022 09:15-0500 Diastolic blood pressure 68 mm[Hg] DUNCAN bead ButtonER ROLL LINE OPERATOR-C Work Phone: [facility]6APT; [facility] Authentic8 Comment on above: Patient Position: Sitting; Cuff Location : Left Arm; Cuff Size: Standard 06-30-2022 09:15-0500 Heart rate 59 /min DUNCAN bead ButtonER ROLL LINE OPERATOR-C Work Phone: [employer]; [place] [email or web address] [facility] [employer]8 Comment on above: Pattern: Regular 06-30-2022 09:15-0500 Inhaled oxygen concentration 21 % DUNCAN The News LensTTER ROLL LINE OPERATOR-C Work Phone: [employer]; [place] [email or web address] [facility] [employer]8 Comment on above: Room air 06-30-2022 09:15-0500 SaO2% (BldA) [Mass fraction] 92 % DUNCAN ZAVALA ROLL LINE OPERATOR-C Work Phone: [facility] HospitalSirionLabs [facility] HospitalRewind Me; [facility] Soundst[employer]. 06-30-2022 09:15-0500 Systolic blood pressure 114 mm[Hg] DUNCNA ZAVALA ROLL LINE OPERATOR-C Work Phone: [facility] HospitalSirionLabs [facility] HospitalRew[facility] Me; [facility] Leyva Looklet. Comment on above: Patient Position: Sitting; Cuff Location : Left Arm; Cuff Size: Standard 04-07-2022 11:05-0400 Body height 156.21 cm [email or web address].; [email or web address]. 04-07-2022 11:05-0400 Body mass index (BMI) [Ratio] 23.42 kg/m2 [email or web address].; [email or web address] [email or web address]. 04-07-2022 11:05-0400 Body surface area Derived from formula 1.56 m2 [email or web address].; InnaVirVax [facility] [email or web address] [facility] Leyva [email or web address]. 04-07-2022 11:05-0400 Body weight 57.15 kg [email or web address].; MILLRY [email or web address] [facility] Leyva [facility], [employer]. 04-07-2022 11:05-0400 Diastolic blood pressure 70 mm[Hg] [email or web address].; InnaVirVax [facility] [email or web address] [facility] Leyva [email or web address]. Comment on above: Patient Position: Sitting; Cuff Location : Left Arm; Cuff Size: Standard 04-07-2022 11:05-0400 Heart rate 51 /min [email or web address].; Socset.EK [email or web address] [facility] Leyva Looklet. Comment on above: Pattern: Regular 04-07-2022 11:05-0400 Inhaled oxygen concentration 21 % [email or web address].; Socset[employer]EK [email or web address] [facility] [employer] [email or web address]. Comment on above: Room air 04-07-2022 11:05-0400 SaO2% (BldA) [Mass fraction] 98 % [facility]. 04-07-2022 11:05-0400 Systolic blood pressure 159 mm[Hg] IVÁN [facility].; [facility]. Comment on above: Patient Position: Sitting; Cuff Location : Left Arm; Cuff Size: Standard 02-15-2022 15:09-0400 Diastolic blood pressure 68 mm[Hg] Dr. Lalo Palm Work Phone: [facility] Work Phone: 02-15-2022 15:09-040 Systolic blood pressure 124 mm[Hg] Dr. Lalo Palm Work Phone: [facility] Work Phone: 02-15-2022 14:11-0400 Heart rate 59 /min Dr. Lalo Palm Work Phone: [facility] Work Phone: 02-15-2022 14:11-0400 Respiratory rate 14 /min Dr. Lalo Palm Work Phone: [facility] Work Phone: 02-15-2022 14:11-0400 SaO2% (BldA) [Mass fraction] 96 % Dr. Lalo Palm Work Phone: [facility] Work Phone: 02-15-2022 12:17-0400 Body height 162.[address] Lalo Palm Work Phone: [facility] Work Phone: 02-15-2022 12:17-0400 Body mass index (BMI) [Ratio] 21.9 kg/m2 Dr. Lalo Palm Work Phone: [facility] Work Phone: 02-15-2022 12:17-0400 Body temperature 96.9 [degF] Dr. Lalo Palm Work Phone: [facility] Work Phone: 02-15-2022 12:17-0400 Body weight 58.[address] Lalo Palm Work Phone: [facility] Work Phone: 02-11-2022 10:59-0400 Body mass index (BMI) [Ratio] 23.1 kg/m2 Dr. Lalo Palm Work Phone: [facility] Work Phone: 02-11-2022 10:59-0400 Body temperature 98.2 [degF] Dr. Lalo Palm Work Phone: [facility] Work Phone: 02-11-2022 10:59-0400 Body weight 59.[address] Lalo Palm Work Phone: [facility] Work Phone: 02-11-2022 10:59-0400 Diastolic blood pressure 80 mm[Hg] Dr. Lalo Palm Work Phone: [facility] Work Phone: 02-11-2022 10:59-0400 Heart rate 57 /min Dr. Lalo Palm Work Phone: [facility] Work Phone: 02-11-2022 10:59-0400 Respiratory rate 16 /min Dr. Lalo Palm Work Phone: [facility] Work Phone: 02-11-2022 10:59-0400 SaO2% (BldA) [Mass fraction] 97 % Dr. Lalo Palm Work Phone: [facility] Work Phone: 02-11-2022 10:59-0400 Systolic blood pressure 130 mm[Hg] Dr. Lalo Palm Work Phone: [facility] Work Phone: 12-28-2021 10:24-0400 Body temperature 98 [degF] Dr. Lalo Palm Work Phone: [facility] Work Phone: 12-28-2021 10:24-0400 Diastolic blood pressure 60 mm[Hg] Dr. Lalo Palm Work Phone: [facility] Work Phone: 12-28-2021 10:24-0400 Heart rate 67 /min Dr. Lalo Palm Work Phone: [facility] Work Phone: 12-28-2021 10:24-0400 Respiratory rate 16 /min Dr. Lalo Palm Work Phone: [facility] Work Phone: 12-28-2021 10:24-0400 SaO2% (BldA) [Mass fraction] 95 % Dr. Lalo Palm Work Phone: [facility] Work Phone: 12-28-2021 10:24-0400 Systolic blood pressure 114 mm[Hg] Dr. Lalo Palm Work Phone: [facility] Work Phone: 12-26-2021 20:32-0400 Diastolic blood pressure 69 mm[Hg] Dr. Lalo Palm Work Phone: [facility] Work Phone: 12-26-2021 20:32-0400 Heart rate 79 /min Dr. Lalo Palm Work Phone: [facility] Work Phone: 12-26-2021 20:32-0400 Systolic blood pressure 126 mm[Hg] Dr. Lalo Palm Work Phone: [facility] Work Phone: 12-26-2021 15:59-0400 Body temperature 97.4 [degF] Dr. Lalo Palm Work Phone: [facility] Work Phone: 12-26-2021 15:59-0400 Respiratory rate 18 /min Dr. Lalo Palm Work Phone: [facility] Work Phone: 12-26-2021 15:59-0400 SaO2% (BldA) [Mass fraction] 98 % Dr. Lalo Palm Work Phone: [facility] Work Phone: 12-25-2021 16:45-0400 Body height [address] Lalo Palm Work Phone: [facility] Work Phone: 12-25-2021 16:45-0400 Body weight 58.[address] Lalo Palm Work Phone: [facility] Work Phone: 12-13-2021 16:09-0400 Body mass index (BMI) [Ratio] 23.3 kg/m2 Dr. Lalo Palm Work Phone: [facility] Work Phone: 12-13-2021 15:17-0400 Body temperature 97.9 [degF] Dr. Lalo Palm Work Phone: [facility] Work Phone: 12-13-2021 15:17-0400 Diastolic blood pressure 74 mm[Hg] Dr. Lalo Palm Work Phone: [facility] Work Phone: 12-13-2021 15:17-0400 Heart rate 68 /min Dr. Lalo Palm Work Phone: [facility] Work Phone: 12-13-2021 15:17-0400 Respiratory rate 18 /min Dr. Lalo Palm Work Phone: [facility] Work Phone: 12-13-2021 15:17-0400 SaO2% (BldA) [Mass fraction] 98 % Dr. Lalo Palm Work Phone: [facility] Work Phone: 12-13-2021 15:17-0400 Systolic blood pressure 142 mm[Hg] Dr. Lalo Palm Work Phone: [facility] Work Phone: 12-13-2021 06:00-0400 Body weight 63.[address] Lalo Palm Work Phone: [facility] Work Phone: 12-11-2021 14:03-0400 Body height [address] Lalo Palm Work Phone: [facility] Work Phone: 12-11-2021 01:45-0400 Body mass index (BMI) [Ratio] 16.7 kg/m2 Dr. Lalo Palm Work Phone: [facility] Work Phone: 12-11-2021 01:03-0400 Body temperature 98.6 [degF] Dr. Lalo Palm Work Phone: [facility] Work Phone: 12-11-2021 01:03-0400 Diastolic blood pressure 69 mm[Hg] Dr. Lalo Palm Work Phone: [facility] Work Phone: 12-11-2021 01:03-0400 Heart rate 86 /min Dr. Lalo Palm Work Phone: [facility] Work Phone: 12-11-2021 01:03-0400 Respiratory rate 15 /min Dr. Lalo Palm Work Phone: [facility] Work Phone: 12-11-2021 01:03-0400 SaO2% (BldA) [Mass fraction] 94 % Dr. Lalo Palm Work Phone: [facility] Work Phone: 12-11-2021 01:03-0400 Systolic blood pressure 120 mm[Hg] Dr. Lalo Palm Work Phone: [facility] Work Phone: 12-10-2021 22:22-0400 Inhaled oxygen flow rate 3 L/min Dr. Lalo Palm Work Phone: [facility] Work Phone: 12-10-2021 20:16-0400 Body height 165.[address] Lalo Palm Work Phone: [facility] Work Phone: 12-10-2021 20:16-0400 Body mass index (BMI) [Ratio] 22.3 kg/m2 Dr. Lalo Palm Work Phone: [facility] Work Phone: 12-10-2021 20:16-0400 Body weight 60.[address] Lalo Palm Work Phone: [facility] Work Phone: 09-26-2021 15:46-0400 Body temperature 97.8 [degF] Dr. Lalo Palm Work Phone: [facility] Work Phone: 09-26-2021 15:46-0400 Diastolic blood pressure 80 mm[Hg] Dr. Lalo Palm Work Phone: [facility] Work Phone: 09-26-2021 15:46-0400 Heart rate 91 /min Dr. Lalo Palm Work Phone: [facility] Work Phone: 09-26-2021 15:46-0400 Respiratory rate 16 /min Dr. Lalo Palm Work Phone: [facility] Work Phone: 09-26-2021 15:46-0400 SaO2% (BldA) [Mass fraction] 96 % Dr. Lalo Palm Work Phone: [facility] Work Phone: 09-26-2021 15:46-0400 Systolic blood pressure 128 mm[Hg] Dr. Lalo Palm Work Phone: [facility] Work Phone: Encounters Encounter Date Encounter Type Care Provider Facility Start: 04-24-2025 ambulatory Genevieve Wu OLS Fa cility:[facility] Start: 03-21-2025 End: 03-21-2025 ambulatory Genevieve Wu Facility:[facility] Start: 03-21-2025 ambulatory Genevieve Wu OLS Fa cility:[facility] Start: 03-07-2025 Genevieve Nguyễn L [place] Start: 03-07-2025 End: 03-07-2025 ambulatory Genevieve Wu OLS Facility:[facility] Start: 02-27-2025 ambulatory Genevieve Wu Facili ty:[facility] Start: 02-27-2025 Genevieve BARRERA L [place] Start: 02-21-2025 Genevieve Nguyễn L - [place] Start: 02-20-2025 End: 02-21-[address] Genevieve Wu MD Work Phone: -[facility] Start: 02-20-2025 End: 02-20-2025 Barbara DELUNA -[facility] Work Phone: Start: 02-19-2025 Dr. Felicia Paniagua MD - [facility] Work Phone: Start: 02-18-2025 Dr. Felicia Paniagua MD - [facility] Work Phone: Start: 02-17-2025 Dr. Karon Nunes MD - [facility] Work Phone: Start: 02-16-2025 Dr. Felicia Paniagua MD - [facility] Work Phone: Start: 02-15-2025 Dr. Felicia Paniagua MD - [facility] Work Phone: Start: 02-14-2025 End: 02-14-[address] Genevieve Wu MD Work Phone: -[facility] Start: 02-14-2025 End: 02-14-2025 Barbara Castro NP-C -[facility] Work Phone: Start: 02-14-2025 ambulatory Genevieve Thrasheri ty:[facility] Start: 02-14-2025 End: 02-19-2025 Evaluation and management of inpatient Dr. Genevieve Wu MD Work Phone: -[facility] Start: 02-14-2025 End: 02-19-2025 Dr. Liudmila Morin MD -[facility] Work Phone: Start: 01-30-2025 ambulatory Genevieve Thrasheri ty:[facility] Start: 01-30-2025 Genevieve [place] Start: 01-20-2025 End: 01-20-2025 ambulatory [facility] Start: 01-16-2025 ambulatory [facility] Start: 01-02-2025 End: 01-02-[address] Genevieve Wu MD Work Phone: -[facility] [place] Start: 01-02-2025 End: 01-02-2025 Departed Referred Genevieve [place] Start: 01-02-2025 Registered Referred Genevieve [place] Start: 01-02-2025 End: 01-02-2025 Genevieve [place] Start: 01-02-2025 End: 01-02-2025 ambulatory Genevieve CUBA Facility:[facility] Start: 12-09-2024 ambulatory Willian Palm Facility:[facility] Start: 12-07-2024 End: 12-07-2024 Patient encounter procedure TARA [facility] Work Phone: Start: 12-07-2024 End: 12-07-2024 CHIP PERSON Idalia Stanley -[facility] Work Phone: Start: 12-07-2024 End: 12-07-[address] Genevieve Wu MD Work Phone: [facility] Work Phone: Start: 11-29-2024 End: 11-29-[address] Vish Cook MD -[facility] Work Phone: Start: 11-29-2024 End: 11-29-2024 Dr. Vish Cook MD -[place] Work Phone: Start: 11-29-2024 End: 11-29-[address] Genevieve Wu MD Work Phone: [facility] Work Phone: Start: 11-28-2024 End: 11-28-[address] Willian Palm DO -[facility] Work Phone: Start: 11-28-2024 End: 11-28-[address] Genevieve Wu MD Work Phone: [facility] Work Phone: Start: 11-28-2024 End: 11-28-2024 Departed Referred Genevieve [place] Start: 11-28-2024 Registered Referred Genevieve [place] [facility] Start: 11-28-2024 End: 11-28-2024 Genevieve NguyễnJanes [facility] [place] [facility] Start: 11-28-2024 End: 11-28-2024 ambulatory Willian Palm Facility:[facility] Start: 11-21-2024 End: 11-21-[address] Genevieve Wu MD Work Phone: [facility] Start: 11-21-2024 End: 11-21-2024 Patient encounter procedure Barbara DELUNA -[facility] Work Phone: Start: 11-21-2024 End: 11-21-2024 Barbara DELUNA -[facility] Work Phone: Start: 11-08-2024 Non-patient / Non-visit Dr. Sharon Crouch MD -[facility] Start: 11-08-2024 End: 11-08-[address] Nicci Lemus MD Work Phone: [facility] Work Phone: Start: 11-08-2024 End: 11-08-[address] Yunior Desai MD -Cardi[facility] Services Work Phone: Start: 11-08-2024 End: 11-08-2024 Dr. Sharon Crouch MD -[facility] Start: 11-08-2024 End: 11-08-2024 ambulatory Yunior Desai Facility:[facility] Start: 10-31-2024 End: 10-31-2024 Departed Referred Genevieve Wu MD -[facility] Start: 10-31-2024 End: 10-31-2024 Genevieve Wu MD [facility] Start: 10-31-2024 End: 10-31-2024 ambulatory Genevieve CUBA Facility:[facility] Start: 10-27-2024 End: 10-27-[address] Genevieve Wu MD Work Phone: -[facility] Start: 10-27-2024 End: 10-27-2024 Patient encounter procedure Barbara DELUNA -[facility] Work Phone: Start: 10-27-2024 End: 10-27-2024 Barbara DELUNA -[facility] Work Phone: Start: 10-05-2024 End: 10-05-[address] Yunior Desai MD -[facility] Work Phone: Start: 10-05-2024 End: 10-05-2024 ambulatory Yunior Desai Facility:[facility] Start: 10-03-2024 End: 10-03-[address] Nicci Lemus MD Work Phone: [facility] Work Phone: Start: 10-03-2024 End: 10-03-2024 Departed Referred Genevieve Bailey Start: 10-03-2024 End: 10-03-2024 ambulatory Efewdion Wu OLS Facility:[facility] Start: 09-08-2024 End: 09-08-[address] Willian Palm DO -[facility] Work Phone: Start: 09-08-2024 End: 09-08-2024 ambulatory Willian Palm Facility:[facility] Start: 08-29-2024 End: 08-29-2024 Departed Referred Genevieve Bailey Start: 08-29-2024 End: 08-29-2024 ambulatory Efewongbe Jazmin CUBA Facility:[facility] Start: 08-11-2024 End: 08-11-2024 ambulatory [facility] Start: 08-03-2024 End: 08-03-[address] Genevieve Wu MD -[facility] Work Phone: Start: 08-03-2024 End: 08-03-2024 ambulatory Efewongbe Olechey Facility:[facility] Start: 08-01-2024 ambulatory Efewongbe Jazmin OLS Fa cility:[facility] Start: 08-01-2024 Registered Referred Genevieve Bailey Start: 07-19-2024 End: 07-19-[address] Vish Cook MD -[facility] Work Phone: Start: 07-19-2024 End: 07-19-2024 ambulatory Nicci Lemus Facility:[facility] Start: 07-12-2024 End: 07-12-2024 ambulatory Genevieve Wu Facility:[facility] Start: 07-12-2024 End: 07-12-[address] Genevieve Wu MD -[facility] Work Phone: Start: 07-04-2024 End: 07-04-2024 ambulatory Barbara Castro CHIP PERSON Facility:[facility] Start: 07-04-2024 End: 07-04-2024 Patient encounter procedure Barbara Castro CHIP PERSON-C -[facility] Work Phone: Start: 06-30-2024 ambulatory [facility] Facility:[facility] Start: 06-30-2024 [facility]istered [facility] Start: 06-27-2024 End: 06-27-2024 ambulatory Matthew CHIP PERSON Facility:[facility] Start: 06-23-2024 ambulatory [facility] Facility:[facility] Start: 06-21-2024 End: 06-21-2024 ambulatory Genevieve Wu Facility:[facility] Start: 06-20-2024 End: 06-20-2024 ambulatory Barbara Whiteyuri CHIP PERSON Facility:[facility] Start: 06-17-2024 ambulatory [facility] Facility:[facility] Start: 06-16-2024 End: 06-16-2024 ambulatory Barbara Castro CHIP PERSON Facility:[facility] Start: 06-11-2024 End: 06-11-2024 ambulatory Zaidesdrastigre Villagran Facility:[facility] Start: 06-07-2024 End: 06-14-2024 ambulatory [facility] Facility:[facility] Start: 05-30-2024 End: 05-30-2024 Emergency department patient visit [facility] Facility:[facility] Start: 02-23-2024 End: 02-23-2024 Historical Summary DUNACN DE Work Phone: [facility] Start: 02-05-2024 End: 02-05-2024 ambulatory MARCOS WHITE [facility] Start: 08-17-2023 End: 08-17-[address] Nicholas Cohen Work Phone: [facility] Work Phone: Start: 08-17-2023 End: 08-17-[address] Nicholas Cohen Work Phone: [facility] Work Phone: Start: 08-14-2023 End: 08-14-[address] Nicholas Cohen Work Phone: [facility] Work Phone: Start: 08-14-2023 End: 08-14-[address] Nicholas Cohen Work Phone: [facility] Work Phone: Start: 08-10-2023 End: 08-10-[address] [facility] Start: 07-21-2023 End: 07-21-[address] Nicholas Cohen Work Phone: [facility] Work Phone: Start: 05-25-2023 End: 05-25-[address] Lalo Palm Work Phone: [facility] Work Phone: Start: 05-25-2023 End: 05-25-[address] Lalo Palm Work Phone: [facility] Work Phone: Start: 05-25-[address] Kamari Palm Work Phone: [facility]-Physical Therapy Work Phone: Start: 05-14-2023 End: 05-14-2023 Office outpatient visit 15 minutes DUNCAN VALDEZP-C Work Phone: [facility] Start: 04-23-2023 Non-patient / Non-visit Dr. Lalo Palm Work Phone: [facility] Work Phone: Start: 04-22-2023 Non-patient / Non-visit Dr. Lalo Palm Work Phone: [facility] Work Phone: Start: 04-21-2023 Non-patient / Non-visit Dr. Lalo Palm Work Phone: [facility] Work Phone: Start: 04-20-2023 Non-patient / Non-visit Dr. Lalo Palm Work Phone: [facility] Work Phone: Start: 04-19-2023 Non-patient / Non-visit Dr. Lalo Palm Work Phone: [facility] Work Phone: Start: 04-18-2023 Non-patient / Non-visit Dr. Lalo Palm Work Phone: [facility] Work Phone: Start: 04-17-2023 Non-patient / Non-visit Dr. Lalo Palm Work Phone: [facility] Work Phone: Start: 04-16-2023 End: 04-23-2023 Evaluation and management of inpatient Dr. Lalo Palm Work Phone: [facility] Surgical 3 Work Phone: Start: 04-05-2023 End: 04-05-[address] Lalo Palm Work Phone: [facility]-Laboratory, Specimen Work Phone: Start: 04-05-2023 End: 04-05-[address] Lalo Palm Work Phone: [facility] Work Phone: Start: 03-17-2023 End: 03-17-[address] Lalo Palm Work Phone: [facility] Neurology Work Phone: Start: 11-17-2022 End: 11-17-2022 Results Review DUNCAN ZAVALA ROLL LINE OPERATOR-C Work Phone: [employer] [facility] [employer] Start: 11-13-2022 End: 11-18-[address] NICCI LEMUS MD Facility:A Start: 11-13-2022 End: 11-13-2022 Patient encounter procedure DUNCAN SAUERADRIANA ROLL LINE OPERATOR-C Work Phone: [email or web address] Start: 11-13-2022 End: 11-13-2022 Office outpatient visit 15 minutes DUNCAN ZAVALA ROLL LINE OPERATOR-C Work Phone: [employer] [facility] [employer] Start: 08-04-2022 End: 08-04-2022 Historical Summary DUNCAN CARMENYENIFERER ROLL LINE OPERATOR-C Work Phone: [employer] Start: 07-04-2022 End: 07-04-2022 Patient encounter procedure DUNCAN SAUERAXELIKEYENIFERER ROLL LINE OPERATOR-C Work Phone: [employer] [facility] [employer] Start: 07-01-2022 End: 07-01-2022 Results Review DUNCAN GIULIAIKEYENIFERER ROLL LINE OPERATOR-C Work Phone: [employer] Start: 06-30-2022 End: 06-30-2022 Lab Only DUNCAN PLATTIKETTER ROLL LINE OPERATOR-C Work Phone: [facility] [employer] Start: 06-30-2022 End: 06-30-2022 Office outpatient visit 25 minutes DUNCAN PLATTTETTER ROLL LINE OPERATOR-C Work Phone: [email or web address] Start: 04-24-2022 End: 04-24-2022 Phone Encounter DUNCAN ZAVALA ROLL LINE OPERATOR-C Work Phone: [email or web address] Start: 04-23-2022 End: 04-23-2022 Medication Refill/Order DUNCAN CARMENDEIRDRE ROLL LINE OPERATOR-C Work Phone: [email or web address] Start: 04-07-2022 End: 04-07-2022 Office outpatient new 60 minutes DUNCAN CARMENDEIRDRE ROLL LINE OPERATOR-C Work Phone: [email or web address] Start: 02-15-2022 End: 02-15-2022 Emergency department patient visit Dr. Lalo Palm Work Phone: [facility]Emergency Department Start: 02-11-2022 End: 02-11-[address] Lalo Palm Work Phone: [facility] Work Phone: Start: 02-11-2022 End: 02-11-[address] Lalo Palm Work Phone: [facility] Start: 02-11-2022 End: 02-11-[address] Lalo Palm Work Phone: [facility] Neurology Start: 12-24-2021 End: 12-24-[address] Lalo Palm Work Phone: [facility] Start: 12-13-2021 End: 12-28-2021 Evaluation and management of inpatient [facility] Lalo Palm [facility] Phone[facility] Start: 12-13-2021 Non-patient / Non-visit Dr. Lalo Palm Work Phone: [facility] Start: 12-12-2021 Non-patient / Non-visit Dr. Lalo Palm Work Phone: [facility] Start: 12-11-2021 End: 12-13-2021 Evaluation and management of inpatient Dr. Lalo Palm Work Phone: [facility] Surgical 3 Start: 10-29-2021 Non-patient / Non-visit Dr. Lalo Palm Work Phone: [facility] Start: 09-26-2021 End: 09-26-[address] Lalo Palm Work Phone: [facility] Internal Medicine Start: 07-03-2020 End: 07-03-2020 Subsequent hospital visit by physician Gerson Adamson Work Phone: [facility] [place] Comment on above: Other closed displac [...] Activity Detail Author Start: 02-19-2025 Patient discharge [facility] Start: 02-14-2025 Following clinical pathway protocol [facility] Start: 02-14-2025 Assessment of risk o f venous thromboembolism [facility] Start: 02-14-2025 Elevation of head of bed [facility] Start: 02-14-2025 Inhalation therapy procedure [facility] Start: 02-14-2025 Insertion of cathete r into peripheral vein [facility] Start: 02-14-2025 Patient education [facility] Start: 02-14-2025 Providing care accor ding to standard [facility] Start: 02-14-2025 Provision of activit y privileges [facility] Start: 02-14-2025 Referral for physica l therapy [facility] Start: 02-14-2025 Referral to occupati onal therapist [facility] Start: 02-14-2025 Referral to service [facility] Start: 02-14-2025 [facility] Start: 02-14-2025 Bacteria identified in Sputum by Culture [facility] Start: 02-14-2025 Legionella pneumophi la Ag [Presence] in Urine [facility] Start: 02-14-2025 Streptococcus pneumo niae antigen assay [facility] Start: 02-14-2025 Verification routine [facility] Start: 02-14-2025 Admission procedure [facility] Start: 02-14-2025 Hospital admission, emergency, from emergency room, medical nature [facility] Start: 02-14-2025 [facility] Start: 02-14-2025 Consultation [facility] Start: 02-14-2025 Patient referral to dietitian [facility] Start: 04-23-2023 Patient discharge [facility] Start: 04-18-2023 [facility] Start: 04-16-2023 Application of intermittent pneumatic compression device [facility] Start: 04-16-2023 Aspiration precautions [facility] Start: 04-16-2023 Assessment of risk o f venous thromboembolism [facility] Start: 04-16-2023 Fall prevention [facility] Start: 04-16-2023 Inhalation therapy procedure [facility] Start: 04-16-2023 Insertion of cathete r into peripheral vein [facility] Start: 04-16-2023 Introduction of urin inga catheter [facility] Start: 04-16-2023 Measuring intake and output [facility] Start: 04-16-2023 Providing care accor ding to standard [facility] Start: 04-16-2023 Provision of activit y privileges [facility] Start: 04-16-2023 Referral to occupati onal therapist [facility] Start: 04-16-2023 Referral to service [facility] Start: 04-16-2023 [facility] Start: 04-16-2023 Following clinical pathway protocol [facility] Start: 04-16-2023 Admission procedure [facility] Start: 04-16-2023 Patient referral to dietitian [facility] Start: 11-13-2022 Blood occult peroxid ase actv qual feces 1 deter [facility] Start: 11-13-2022 Blood count complete auto&auto difrntl wbc [facility] Start: 06-30-2022 Cv strs tst xers&/or rx cont ecg w/si&r CARDIOVASCULAR STRESS [id number] ISCAN- WITH IMAGING - ([id number]) ([id number]) Start: 30-Jun-2022 [facility] Start: 06-30-2022 Ecg routine ecg w/le ast 12 lds w/i&r ELECTROCARDIOGRAM, COMPLETE ([id number]) Start: 30-Jun-2022 Intent [facility]; [facility]. Start: 04-28-2022 Assay of iron [facility]; [email or web address]. Start: 04-28-2022 Blood count complete auto&auto difrntl wbc [facility]; [facility]. Start: 04-28-2022 Comprehensive metabo lic panel [facility]; [facility]. Start: 04-07-2022 Adv care pln tlkd & alt dcsn maker docd ADV CARE PLAN DISCUSSED & DOCUMENTED, SURROGATE OR PLAN IN PLACE ([id number]) Start: 07-Apr-2022 Intent [facility]; [facility]. Start: 02-11-2022 Thiamine measurement [facility] Work Phone: Start: 02-01-2022 Blood chemistry [facility] Work Phone: Start: 01-25-2022 Blood chemistry [facility] Work Phone: Start: 01-18-2022 Blood chemistry [facility] Work Phone: Start: 01-11-2022 Blood chemistry [facility] Work Phone: Start: 01-04-2022 Blood chemistry [facility] Work Phone: Start: 12-29-2021 Development of care plan [facility] Work Phone: Start: 12-28-2021 Blood chemistry [facility] Work Phone: Start: 12-28-2021 Patient discharge [facility] Work Phone: Start: 12-27-2021 Referral to service [facility] Work Phone: Start: 12-24-2021 [facility] Work Phone: Start: 12-23-2021 End: 12-24-2021 [facility] Work Phone: Start: 12-21-2021 Development of care plan [facility] Work Phone: Start: 12-20-2021 End: 12-20-2021 [facility] Work Phone: Start: 12-19-2021 [facility] Work Phone: Start: 12-18-2021 Blood chemistry [facility] Work Phone: Start: 12-17-2021 Speech therapy management [facility] Work Phone: Start: 12-17-2021 Blood chemistry [facility] Work Phone: Start: 12-17-2021 [facility] Work Phone: Start: 12-16-2021 Speech therapy assessment [facility] Work Phone: Start: 12-16-2021 Blood chemistry [facility] Work Phone: Start: 12-16-2021 [facility] Work Phone: Start: 12-15-2021 Blood chemistry [facility] Work Phone: Start: 12-14-2021 Development of care plan [facility] Work Phone: Start: 12-14-2021 Patient referral to dietitian [facility] Work Phone: Start: 12-14-2021 Developing a treatme nt plan [facility] Work Phone: Start: 12-14-2021 Blood chemistry [facility] Work Phone: Start: 12-13-2021 Verification routine [facility] Work Phone: Start: 12-13-2021 Following clinical pathway protocol [facility] Work Phone: Start: 12-13-2021 Admission procedure [facility] Work Phone: Start: 12-13-2021 Measuring intake and output [facility] Work Phone: Start: 12-13-2021 Patient referral to dietitian [facility] Work Phone: Start: 12-13-2021 Referral to occupati onal therapist [facility] Work Phone: Start: 12-13-2021 Referral to service [facility] Work Phone: Start: 12-13-2021 Vital signs measurements [facility] Work Phone: Start: 12-13-2021 End: 12-14-2021 [facility] Work Phone: Start: 12-13-2021 Patient discharge [facility] Work Phone: Start: 12-11-2021 End: 12-12-2021 [facility] Work Phone: Start: 12-11-2021 End: 12-11-2021 Blood culture [facility] Work Phone: Start: 12-11-2021 Application of intermittent pneumatic compression device [facility] Work Phone: Start: 12-11-2021 Following clinical pathway protocol [facility] Work Phone: Start: 12-11-2021 Aspiration precautions [facility] Work Phone: Start: 12-11-2021 Assessment of risk o f venous thromboembolism [facility] Work Phone: Start: 12-11-2021 Fall prevention [facility] Work Phone: Start: 12-11-2021 Incentive spirometry [facility] Work Phone: Start: 12-11-2021 Inhalation therapy procedure [facility] Work Phone: Start: 12-11-2021 Insertion of cathete r into peripheral vein [facility] Work Phone: Start: 12-11-2021 Introduction of urin inga catheter [facility] Work Phone: Start: 12-11-2021 Measuring intake and output [facility] Work Phone: Start: 12-11-2021 Oxygen therapy [facility] Work Phone: Start: 12-11-2021 Providing care accor ding to standard [facility] Work Phone: Start: 12-11-2021 Provision of activit y privileges [facility] Work Phone: Start: 12-11-2021 Referral to occupati onal therapist [facility] Work Phone: Start: 12-11-2021 Referral to service [facility] Work Phone: Start: 12-11-2021 End: 12-11-2021 [facility] Work Phone: Start: 12-11-2021 Verification routine [facility] Work Phone: Start: 12-11-2021 Admission procedure [facility] Work Phone: Start: 12-11-2021 Patient referral to dietitian [facility] Work Phone: Start: 12-10-2021 [facility] Work Phone: Start: 10-29-2021 Patient referral [facility] Work Phone: Start: 06-27-2020 Annual Wellness Visi t (AWV) Annual Wellness Visit (AWV) [place] Start: 02-14-2020 Influenza vaccination Flu vaccine (# 1) [place] Start: 01-18-1996 Screening for osteoporosis DEXA (modify frequency per FRAX score) [place] Start: 1991 Shingles Vaccine (1 of 2) Buitrago gles Vaccine (1 of 2) [place] Start: 01-18-1960 DTaP/Tdap/Td vaccine (1 - Tdap) DTaP/Tdap/Td vaccine (1 - Tdap) [place] Start: 1941 Hepatitis C screening Hepatitis C sc reen [place] Bacteria identified in Blood by Culture Blood Culture [facility] Work Phone: Blood culture [facility] Work Phone: CT Chest WO contrast [facility] End: 07-03-2020 CT ELBOW LEFT WO CONTRAST [place] Comment on above: 1 Occurrences starti ng 07/03/2020 until 07/03/2020 End: 07-03-2020 CT UPPER EXTREMITY LEFT WO CONTRAST CT UPPER EXTREMITY LEFT WO CONTRAST Imaging Routine Once for 1 Occurrences starting 07/03/2020 until 07/03/2020 [place] Comment on above: Once for 1 Occurrenc es starting 07/03/2020 until 07/03/2020 CT UPPER EXTREMITY L EFT WO CONTRAST CT UPPER EXTREMITY LEFT WO CONTRAST Imaging Routine 07/03/2020 12:46 PM EST [place] MR Brain WO contrast [facility] Work Phone: Patient Education [facility] Work Phone: Patient referral [facility] Work Phone: Thiamine measurement [facility] Work Phone: [facility] Immunizations Immunization Date Immunization Notes Care Provider Fa charanjit 05-14-2023 influenza, injectabl e, quadrivalent, preservative free DUNCAN Harvard UniversityAXELTEYouCastrER ROLL LINE OPERATOR-C Work Phone: [employer] [facility] [facility]; [employer] [facility] [email or web address] [email or web address]. Comment on above: Site: Right ArmVIS G iven: * Influenza (Flu) Vaccine (Inactivated or Recombinant) (01/18/21) 05-14-2023 influenza virus vacc ine, unspecified formulation DUNCAN PLATTTEYENIFERER ROLL LINE OPERATOR-C Work Phone: [employer] [facility]; [employer] [facility] [email or web address] [email or web address]. Comment on above: Had immunization. 01-02-2021 Covid (Pfizer) Dr. Lalo marquis Work Phone: [facility] 12-12-2020 Covid (Pfizer) Dr. Lalo marquis Work Phone: [facility] 06-18-[address] Lalo Palm Work Phone: [facility] 06-18-2018 Dr. Genevieve Wu MD Work Phone: [facility] 01-07-2018 pneumococcal polysaccharide vaccine, [address] Lalo Palm Work Phone: [facility] 01-07-[address] Bhavin Palm Work Phone: [facility] Work Phone: 01-07-2018 pneumococcal vaccine , unspecified formulation Dr. Lalo Palm Work Phone: [facility] 06-04-2001 TD(adult) unspecifie d formulation Dr. Lalo Palm Work Phone: [facility] Payers Date Payer Category Payer Self-pay [id number] 2020 Medicare AET[employer] MEDICARE A ETNA MEDICARE-ADVANTAGE PPO [id number] 2020-Present [address] [place] [address] Medicare [id number] 2006 Private Health Insurance 101 [id number] 1941 Unknown [id number] 2.840.1.395186.3.579.2.6 27 1941 Unknown [id number] 2.840.1.661726.3.579.2.6 51 1941 Unknown [id number] 2.840.1.744054.3.579.2.6 51 1941 Unknown [id number] 2.16.840.1.970520.3.579.2.6 51 1941 Unknown [id number] 2.16.840.1.974963.3.579.2.6 51 Medicare [id number] Unknown [facility] PACKAGE PLAN [id number] Unknown [id number] 2.16.840.1.239726.3.579.2.4 62 Unknown [id number] 2.16.840.1.436477.3.579.2.4 62 Unknown [id number] 2.16.840.1.923911.3.579.2.4 62 Unknown [id number] 2.16.840.1.342417.3.579.2.4 62 Unknown [id number] 2.16.840.1.912392.3.579.2.4 62 Unknown [id number] 2.16.840.1.270289.3.579.2.4 62 Unknown [id number] 2.16.840.1.281906.3.579.2.4 62 Unknown [id number] 2.16.840.1.046206.3.579.2.4 62 Unknown [id number] 2.16.840.1.954146.3.579.2.4 62 Unknown [id number] 2.16.840.1.882699.3.579.2.4 62 Unknown [id number] 2.16.840.1.345146.3.579.2.4 62 Unknown [id number] 2.16.840.1.626186.3.579.2.4 62 Unknown [id number] 2.16.840.1.134315.3.579.2.4 62 Unknown [id number] 2.16.840.1.977429.3.579.2.4 62 Unknown [id number] 2.16.840.1.069796.3.579.2.4 62 Unknown [id number] 2.16.840.1.600390.3.579.2.4 62 Unknown [id number] 2.16.840.1.721563.3.579.2.4 62 Unknown [id number] 2.16.840.1.104062.3.579.2.4 62 Unknown [id number] 2.16.840.1.277680.3.579.2.4 62 Unknown [id number] 2.16.840.1.020669.3.579.2.4 62 Unknown [id number] 2.16.840.1.587272.3.579.2.4 62 Unknown [id number] 2.16.840.1.652281.3.579.2.4 62 Unknown [id number] 2.16.840.1.185884.3.579.2.4 62 Unknown [id number] 2.16.840.1.181528.3.579.2.4 62 Unknown [id number] 2.16.840.1.938919.3.579.2.4 62 Unknown [id number] 2.16.840.1.632525.3.579.2.4 62 Unknown [id number] 2.16.840.1.930030.3.579.2.4 62 Unknown [id number] 2.16.840.1.411258.3.579.2.4 62 Unknown [id number] 2.16.840.1.780532.3.579.2.4 62 Unknown [id number] 2.16.840.1.833224.3.579.2.4 62 Unknown [id number] 2.16.840.1.619666.3.579.2.4 62 Unknown [id number] 2.16.840.1.806088.3.579.2.4 62 Unknown [id number] 2.16.840.1.401070.3.579.2.4 62 Unknown [id number] 2.16.840.1.840128.3.579.2.4 62 Unknown [id number] 2.16.840.1.836290.3.579.2.4 62 Unknown [id number] 2.16.840.1.659590.3.579.2.4 62 Unknown [id number] 2.16.840.1.261953.3.579.2.4 62 Unknown [id number] 2.16.840.1.852400.3.579.2.4 62 Unknown [id number] 2.16.840.1.579207.3.579.2.4 62 Unknown [id number] 2.16.840.1.248166.3.579.2.4 62 Unknown [id number] 2.16.840.1.869784.3.579.2.4 62 Unknown [id number] 2.16.840.1.381703.3.579.2.4 62 Unknown [id number] 2.16.840.1.369109.3.579.2.4 62 Unknown [id number] 2.16.840.1.614342.3.579.2.4 62 Unknown [id number] 2.16.840.1.050013.3.579.2.4 62 Unknown [id number] 2.16.840.1.799704.3.579.2.4 62 Unknown [id number] 2.16.840.1.675521.3.579.2.4 62 Unknown [id number] 2.16.840.1.751250.3.579.2.4 62 Unknown [id number] 2.16.840.1.721181.3.579.2.4 62 Unknown [id number] 2.16.840.1.250337.3.579.2.4 62 Unknown [id number] 2.16.840.1.723274.3.579.2.4 62 Unknown [id number] 2.16.840.1.333700.3.579.2.4 62 Social History Date Type Detail Facility Start: 07-03-2020 End: 04-16-2023 Tobacco smoking status NHIS Unknown if ever smoked [facility] Sex Assigned At Not on file [place] Exposure to SARS-CoV -2 (event) Not sure [place] Start: 1940 Sex Assigned At Female W [facility] Start: 01-04-2018 None [facility] Start: 01-04-2018 Alone [facility] Start: 01-15-2018 Non-smoker [facility] Alcohol Use: Alcohol Use: ; N o Alcohol Use. [email or web address] Marital status: Marital status: ; . [facility]; [facility] Tobacco use: Tobacco use: ; F ormer smoker. [email or web address]; [email or web address] Work Phone: Occasional alcohol use [facility]; [email or web address] Work Phone: Never smoked tobacco [email or web address] Work Phone: Start: 06-07-2024 End: 03-14-2025 Ex-smoker [facility] Sex [facility] Medical Equipment Procedure Code Equipment Code [...] Assessment Result Facility 02-19-2025 Functional status Chair [facility] Work Phone: 04-23-2023 Functional status Bathroom Privilege [facility] Work Phone: 12-28-2021 Functional status Ambulates;Up ad gary [facility] Work Phone: 12-26-2021 Functional status Ambulates [facility] Work Phone: 12-13-2021 Functional status Patient Activity Chair [facility] Work Phone: 12-13-2021 Functional status With Assist of 1 [facility] Work Phone: Mental Status Date Assessment Result Facility 02-19-2025 Cognitive function Touch/Shaking [facility] Work Phone: 02-14-2025 Cognitive function Drowsy;Disori ented;Responds to vocal stimuli [facility] Work Phone: 04-23-2023 Cognitive function Appropriate;Cooperativ e [facility] Work Phone: 04-22-2023 Cognitive function Arousable To Voice/Nam e [facility] Work Phone: 02-15-2022 Cognitive function Level Of Cons ciousness Awake;Alert;Appropriate;Follow s Commands [facility] Work Phone: 12-28-2021 Cognitive function Voice/Name [facility] Work Phone: 12-27-2021 Cognitive function Appropriate;C ooperative;Restle ss;Guarded [facility] Work Phone: 12-26-2021 Cognitive function Voice/Name [facility] Work Phone: 12-24-2021 Cognitive function Calm;Relaxed [facility] Work Phone: 12-13-2021 Cognitive function Patient Orientation Pe rson [facility] Work Phone: 12-13-2021 Cognitive function Voice/Name [facility] Work Phone: 12-12-2021 Cognitive function Fatigued [facility] Work Phone: Clinical Notes 02-15-2022 to 02-19-2025 Note Date & Type Note Facility 02-19-2025 Note [facility] 02-18-2025 Progress note Note Date/Time February 18, 2025 3:08pm [facility] Medical Records Department [address] [place] [id number] Progress Note 02/18/25 1500 MR#: [id number] Acct: [id number] Name: SAPNA BULLARD Rep #:[id number] : 1940 85 From: Felicia Paniagua MD PCP: Dr. Genevieve Wu MD Status:A DM IN Location: MS3 KU077-9 Subjective Subjective Patient seen and examined with [...] % (Auto) 61.7, Lymph % (Auto) 21.0, Woods % (Auto) 13.3 H, Eos % (Auto) [...] (Auto) 71.4 H, Lymph % (Auto) 14.7L, Woods % (Auto) 10.8 H, Eos % (Auto) [...] sitter again. Charges/Coding Visit Charges Inpatient E&M: 76361 Subs Hosp L2 02/18/25 1508 <Electronically signed by Felicia Paniagua MD> Felicia Paniagua MD Cosigner Signature (if applicable): CC: ~ Signed [facility] Work Phone: 1(216) 518-666709-05-2025 Progress note Author [facility] Note Date/Time February 17, 2025 4:00pm [facility] Medical Records Department [address] [place] [address] Progress Note 02/17/25 1048 MR#: [id number] Acct: [id number] Name: SAPNA BULLARD Rep #:[id number] : 1940 85 From: Felicia Paniagua MD PCP: Dr. Genevieve Wu MD Status:A DM IN Location: MS3 RH284-6 Subjective Subjective Patient seen and examined with [...] facilitate this. Charges/Coding Visit Charges Inpatient E&M: 20650 Subs Hosp L2 02/17/25 1600 <Electronically signed by Felicia Paniagua MD> Felicia Paniagua MD Cosigner Signature (if applicable): CC: ~ Signed [facility] Work Phone: 1(841) 121-754209-05-2025 Progress note Author [facility] Note Date/Time February 17, 2025 6:39am [facility] Medical Records Department [address] [place] [address] Progress Note - Hospitalist 02/17/25 0303 MR#: [id number] Acct: [id number] Name: SAPNA BULLARD Rep #:[id number] : 1940 85 From: Karon Nunes MD PCP: Dr. Genevieve Wu MD Status:A DM IN Location: [place] [address] Hospitalist Note Patient with notable agitation, aggressive behavior, will trial IM haldol x 1. 02/17/25 0304 <Electronically signed by Karon Nunes MD> Cosigner Signature (if applicable): CC: ~ Signed ADDENDUM by Dr. Karon Nunes MD on 02/17/25 at 0639 Addendum Will increase patient risperidone. 02/17/25 0639<Electronically signed by Karon Nunes MD> Cosigner Signature (if applicable): cc: ~* Signed [facility] Work Phone: 1(892) 783-958409-04-2025 Progress note Author Felicia [facility] Note Date/Time February 16, 2025 5:29pm [facility] Medical Records Department [address] [place] [address] Progress Note 02/16/25 1324 MR#: [id number] Acct: [id number] Name: SAPNA BULLARD Rep #:[id number] : 1940 85 From: Felicia Paniagua MD PCP: Dr. Genevieve Wu MD Status:A DM IN Location: MS3 XC899-2 Subjective Subjective Patient seen and examined with [...] (Auto) 67.8, Lymph % (Auto) 14.9 L, Woods % (Auto) 14.1 H, Eos % (Auto) [...] DC tomorrow Charges/Coding Visit Charges Inpatient E&M: 92486 Subs Hosp L2 02/16/25 6038 <Electronically signed by Felicia Paniagua MD> Felicia Paniagua MD Cosigner Signature (if applicable): CC: ~ Signed [facility] Work Phone: 1([phone]) 389-940209-03-2025 Progress note Author [facility] Note Date/Time February 15, 2025 6:32pm [facility] Medical Records Department [address] [place] [address] Progress Note 02/15/25 1730 MR#: [id number] Acct: [id number] Name: SAPNA BULLARD Rep #:[id number] : 1940 85 From: Felicia Paniagua MD PCP: Dr. Genevieve Wu MD Status:A DM IN Location: MS3 CR194-7 Subjective Subjective Patient seen and examined. She was lethargic and not really answering questions. Unable to do review of the systems. I saw her with her nurse by [facility]. Review of symptoms otherwise negative. She [...] (Auto) 63.9, Lymph % (Auto) 16.8 L, Woods % (Auto) 16.6 H, Eos % (Auto) [...] prophylaxis: SCDs Charges/Coding Visit Charges Inpatient E&M: 63846 Subs Hosp L2 02/15/25 1832 <Electronically signed by Felicia Paniagua MD> Felicia Paniagua MD Cosigner Signature (if applicable): CC: ~ Signed [facility] Work Phone: [phone]) 273-724509-03-2025 Progress note Author Farrah Leone [facility] Note Date/Time February 14, 2025 10:08pm [facility] Medical Records Department [address] [place] [address] Progress Note 02/14/252200 MR#: [id number] Acct: [id number] Name: SAPNA BULLARD Rep #:[id number] : 1940 85 From: Farrah Haas PCP: Dr. Genevieve Wu MD Status:A DM IN Location: MS3 ZC420-0 Progress Note Notified by nursing that pt [...] Cosigner Signature (if applicable): CC: ~ Signed [facility] Work Phone: 1(482) 254-364109-02-2025 History and physical note Author Liudmila Morin [facility] Note Date/Time February 14, 2025 7:35pm [facility] Medical Records Department [address] [place] [address] H&P Exam - Hospitalist 02/14/25 1511 MR#: [id number] Acct: [id number] Name: SAPNA BULLARD Rep #:[id number] : 1940 85 From: Liudmila Morin MD PCP: Dr. Genevieve Wu MD Status:A DM IN Location: MS3 TA141-7 HPI - General General Date of Admission: 02/14/25 Date of Service: 02/14/25 Chief Complaint: Altered mental status, weakness HPI Narrative SAPNA BULLARD, is a 85-year-old female history of GERD, dementia, essential tremor,restless leg syndrome who presented to [facility] ED 02/14/[address] [facility] for confusion, weakness, stool and [...] up. Unable to obtain any further history [facility] Medical History (Updated 02/14/25 @ 15:21 [...] Unknown History gram-2.25 kcal/mL oral liquid ([facility]) propranolol 20 mg tablet 20 mg [...] details: PT frequency: 1-2 times per week herrera/yarsanism: Jewish seatbelt use: always ROS ROS Narrative Unable [...] (Auto) 74.1 H, Lymph % (Auto)11.8 L, Woods % (Auto) 12.2 H, Eos % (Auto) [...] Clarity Clear, Urine pH 6.0, Ur Specific [place] 1.015, Urine Protein Negative, Urine Glucose (UA) [...] 2. Suggestion of COPD. Reading Location: [facility] Assessment & Plan Assessment/Plan (1) Community [...] Morin MD Charges/Coding Visit Charges Inpatient E&M: 06385 Init Hosp L2 02/14/25 1522 <Electronically signed [...] a large impact 02/14/251934<Electronically signed by Liudmila Morni MD> Cosigner Signature (if applicable): cc: Dr. Genevieve Wu MD; Dr. Liudmila Morin MD ~* Signed [facility] Work Phone: 1(134) [phone] Discharge summary Author Arya Gannon [facility] Note Date/Time February 14, 2025 5:46pm [facility] Medical Records Department [address] [place] [address] Emergency Department Summary 02/14/25 MR#: [id number] Acct: [id number] Name: CAMPOSSAPNA Drew Rep #:[id number] : 1940 85 From: Arya de guzman DO PCP: Dr. Genevieve Wu MD Status:A DM IN Location: [place] IB745-8 HPI History of Present Illness Chief Complaint: Weakness Narrative Narrative: Chief complaint and HPI: 85-year-old female with past medical history of dementia, GERD, HTN, essential tremor presents from [facility] for evaluation of confusion, weakness, stool [...] Alert, grossly intact, sensation intact Psych: Cooperative [facility] Medical History Neuropathy Left bundle branch [...] details: PT frequency: 1-2 times per week herrera/yarsanism: Jewish seatbelt use: always EXAM Physical Exam Const [...] dementia, GERD, HTN, essential tremor presents from [facility] for evaluation of confusion, weakness, stool [...] 74.1 H Lymph % (Auto) 11.8 L Woods % (Auto) 12.2 H Eos % (Auto) [...] Clarity Clear Urine pH 6.0 Ur Specific [place] 1.015 Urine Protein Negative Urine Glucose (UA) [...] (Auto) Neut % (Auto) Lymph % (Auto) Woods % (Auto) Eos % (Auto) Baso % [...] Color Urine Clarity Urine pH Ur Specific [place] Urine Protein Urine Glucose (UA) Urine Ketones Urine Occult Blood Urine Nitrite Urine Bilirubin Urine Urobilinogen Ur Leukocyte Esterase Urine RBC Urine WBC Ur Squamous Epith Cells Urine Bacteria Urine Mucus Radiography Diagnostic Testing: Clinical Impression(s) from Imaging Studies Chest X-Ray 02/14/25 11:40 IMPRESSION: 1. Lingular atelectasis or pneumonia. 2. Suggestion of COPD. Reading Location: [facility] Discharge Plan Disposition Disposition: Acute Care Hospital [facility] Discharge Date/Time: 02/14/25 15:50 What to do if you have Problems For any increased pain, shortness of breath, bleeding, nausea or vomiting, chestpain, or any unexpected problems, contact your Primary Care Provider. Call [facility] ([phone]) or report to the closest Emergency Room. Call 911 if necessary. 02/14/25 5036 <Electronically signed by Arya Gannon DO> Cosigner Signature (if applicable): CC: Dr. Genevieve Wu MD ~ Signed [facility] Work Phone: 1([phone]) 265-900009-02-2025 Radiology Diagnostic study [facility]06-17-2025 Evaluation note* Diagnosis Onset Date Resolution Status Admit Date Dementia chronic November 29 10:05am Essential tremor chronic November 10:05am Restless leg syndrome chronic Nov 10:05am Vitamin D deficiency resolved November 29, 2024 10:05am Abnormal chest CT chronic December 072024 9:10am Community acquired pneumonia acute February 14, 2025 3:11pm [facility] Work Phone: [phone] Evaluation note* Diagnosis Onset Date Resolution Status Admit Date Dementia chronic November 29 10:05am Essential tremor chronic November 10:05am Restless leg syndrome chronic Nov 10:05am Vitamin D deficiency resolved November 29, 2024 10:05am Abnormal chest CT chronic December 072024 9:10am Community acquired pneumonia inactiv e February 14, 2025 3:11pm [facility] Work Phone: [phone] Radiology Diagnostic study note [facility] Imaging Services [address] [place] [address] Chest without Contrast MR#: [id number] Acct: [id number] Name: SAPNA BULLARD Rep #: [id number] : 1940 F 84 From: Thaddeus Chaparro MD PCP: Dr. Genevieve Wu MD Status: R EG CLI Study:Chest without Contrast Date of Exam: 11/28/24 Exam# [id number] Ordering Dr: Valdez DO PROCEDURE: CHEST WITHOUT [...] 4. Other findings as noted. Reading Location: [id number] CC: Dr. Willian Palm DO; Dr. Genevieve Wu MD ~ Laboratory Chemical Assistant: Signed [facility] Work Phone: [phone]) 342-408504-23-2025 Evaluation note* Diagnosis Onset Date Resolution Status [...] Abnormal chest CT chronic December 072024 9:10am [facility] Work Phone: 1([phone]) 795-776303-27-2025 Evaluation note* Diagnosis Onset Date Resolution Status Admit Date Abnormal chest CT chronic August 142024 11:20am Left bundle branch block acute October 05, 2024 9:00am Abnormal chest CT chronic September 142024 9:00am Dementia chronic October 05 9:00am Hyperlipemia chronic October 05, 2024 9:00am [place] [facility] Work Phone: [phone] Evaluation note* Diagnosis Onset Date Resolution Status [...] D deficiency resolved November 29, 2024 10:05am [facility] Work Phone: [phone] Evaluation note* Diagnosis Onset Date Resolution Status [...] Abnormal chest CT chronic December 072024 9:10am [facility] Work Phone: [phone] 150-520902-04-2025 Evaluation note* Diagnosis Onset Date Resolution Status Admit Date Anxiety chronic July 19, 2024 9:51am Dementia chronic July 19, 2024 9:51am Insomnia chronic July 19, 2024 9:51am Restless leg syndrome chronic Fe ru2024 9:51am Vitamin D deficiency chronic Febr ua2024 9:51am Essential tremor inactive July 19, 2024 9:51am Abnormal chest CT chronic August 142024 11:20am Left bundle branch block acute October 05, 2024 9:00am Abnormal chest CT chronic September 142024 9:00am Dementia chronic October 05 9:00am Hyperlipemia chronic October 05, 2024 9:00am [facility] Work Phone: [phone]) 722-968512-31-2024 [facility]11-08-2023 Progress note Author John Johnston [facility] April 22, 2023 4:40pm Note Date/Time April 22, 2023 4 :41pm [facility] Medical Records Department [address] [place] [address] Progress Note - Hospitalist 04/22/23 1637 MR#: [id number] Acct: [id number] Name: SAPNA BULLARD Rep #:[id number] : 1940 83 From: John Johnston DO PCP: Dr. Nicci Lemus MD Status:ADM I N Location: [place] 161271-1 Reason for Visit Reason for Visit: Diagnoses [...] Document 04/17/23 11:22 NITZA (Rec: 04/17/23 11:22 [facility] Desktop) Nutrition Malnutrition Evidence of Malnutrition Exists [...] 35 minutes Charges/Coding Visit Charges Inpatient E&M: 36705 Subs Hosp L2 04/22/23 1640 <Electronically signed by John Johnston DO> Cosigner Signature (if applicable): CC: ~ Signed [facility] Work Phone: 1(361) 386-674611-07-2023 Progress note Author John Johnston [facility] April 21, 2023 5:05pm Note Date/Time April 21, 2023 4 :52pm [facility] Medical Records Department [address] [place] [address] Progress Note - Hospitalist 04/21/23 1649 MR#: [id number] Acct: [id number] Name: SAPNA BULLARD Rep #:[id number] : 1940 83 From: John Johnston DO PCP: Dr. Nicci Lemus MD Status:ADM I N Location: [address] Reason for Visit Reason for Visit: Diagnoses [...] offered, patient will need placement in a care home facility for short-term rehab services #3 acute cystitis-again patient will be transition to Keflex starting tomorrow #4 acute debility secondary to multiple medical problems including dementia, pneumonia, and cystitis-PT and OT are seeing patient, she will need short-term placement in a care home facility #5 essential tremor-patient is on propranolol [...] 35 minutes Charges/Coding Visit Charges Inpatient E&M: 89484 Subs Hosp L2 04/21/23 1705 <Electronically signed by John Johnston DO> Cosigner Signature (if applicable): CC: ~ Signed [facility] Work Phone: [phone] 163-451011-06-2023 Progress note Author John Johnston [facility] April 20, 2023 7:08pm Note Date/Time April 20, 2023 7 :08pm [facility] Medical Records Department [address] [place] [address] Progress Note - Hospitalist 04/20/23 1859 MR#: [id number] Acct: [id number] Name: SAPNA BULLARD Drew Rep #:[id number] : 1940 83 From: John Johnston DO PCP: Dr. Nicci Lemus MD Status:ADM I N Location: [place] [address] Reason for Visit Reason for Visit: Diagnoses [...] (Auto) 65.0, Lymph % (Auto) 17.3 L, Woods % (Auto) 16.0 H, Eos % (Auto) [...] offered, patient will need placement in a care home facility for short-term rehab services #3 acute cystitis-again patient will be transition to Keflex starting tomorrow #4 acute debility secondary to multiple medical problems including dementia, pneumonia, and cystitis-PT and OT are seeing patient, she will need short-term placement in a care home facility #5 essential tremor-patient is on propranolol Total clinical time spent by myself addressing patient's medical issues, reviewing all of her data, and collaborating with patient's care team: 35 minutes Charges/Coding Visit Charges Inpatient E&M: 84651 Subs Hosp L2 04/20/23 190 <Electronically signed by John Johnston DO> Cosigner Signature (if applicable): CC: ~ Signed [facility] Work Phone: [phone]) 576-782911-05-2023 Progress note Author Pravin Cruz [facility] April 19, 2023 8:59am Note Date/Time April 19, 2023 8 :59am [facility] Medical Records Department [address] [place] [address] Progress Note - Hospitalist 04/19/23 0857 MR#: [id number] Acct: [id number] Name: SAPNA BULLARD Drew Rep #:[id number] : 1940 83 From: Pravin ty MD PCP: Dr. Nicci Lemus MD Status:ADM I N Location: MS3 ZN625-4 Subjective Subjective No issues overnight, she is [...] 04/18: Urine culture Bartholomew reported. E. coli 18208?42870 E. coli, ramon sensitivity sensitivity available. Continue [...] DVT: Lovenox Charges/Coding Visit Charges Inpatient E&M: 39993 Subs Hosp L2 04/19/23 0859 <Electronically signed by Pravin Cruz MD> Cosigner Signature (if applicable): CC: ~ Signed [facility] Work Phone: [phone] 800-317311-04-2023 Progress note Author Darinel Carlos [facility] April 18, 2023 2:11pm Note Date/Time April 18, 2023 1 0:00am [facility] Medical Records Department [address] [place] [address] Progress Note - Hospitalist 04/18/23 0959 MR#: [id number] Acct: [id number] Name: SAPNA BULLARD Rep #:[id number] : 1940 83 From: Darinel Morocho PCP: Dr. Nicci Lemus MD Status:ADM I N Location: [place] [address] Reason for Visit Reason for Visit: Diagnoses [...] Intake and Output for Last 24 Hours 11/02/23 11/03/23 11/04/23 23:59 23:59 23:59 Intake Total 1305 / 1305 500 / 500 455 / 455 Output Total 400 / 400 Balance 1305 / 905 100 / 100 455 / 455 Medical Nutrition Assessment Dietitian: Malnutrition Criteria Met Start: 04/17/23 11:22 Freq: Status: Active Protocol: Document 04/17/23 11:22 [facility] (Rec: 04/17/23 11:22 [facility] Desktop) Nutrition Malnutrition Evidence of Malnutrition Exists [...] The patient is an 83 y/o F [facility] ED on 04/16/23 with history [...] 04/18: Urine culture Bartholomew reported. E. coli 74116?04610 E. coli, ramon sensitivity sensitivity available. Continue [...] Care Planning Charges/Coding Visit Charges Inpatient E&M: 61817 Subs Hosp L2 04/18/23 1411 <Electronically signed by Darinel Carlos MD> Cosigner Signature (if applicable): CC: ~ Signed [facility] Work Phone: 1([phone]) 407-965811-03-2023 Progress note Author Darinel Carlos [facility] April 17, 2023 3:54pm Note Date/Time April 17, 2023 7 :31am [facility] Medical Records Department [address] [place] [address] Progress Note - Hospitalist 04/17/23 0728 MR#: [id number] Acct: [id number] Name: SAPNA BULLARD Drew Rep #:[id number] : 1940 83 From: Darinel Morocho PCP: Dr. Nicci Lemus MD Status:ADM I N Location: [place] [address] Reason for Visit Reason for Visit: Diagnoses [...] 80.3 H, Lymph % (Auto) 10.8 L, Woods % (Auto) 8.0, Eos % (Auto) 0.1, [...] Sl. Cloudy, Urine pH 7.0, Ur Specific [place] 1.010, Urine Protein 15 H, Urine Glucose [...] 73.6 H, Lymph % (Auto) 13.6 L, Woods % (Auto) 11.3 H, Eos % (Auto) [...] The patient is an 83 y/o F [facility] ED on 04/16/23 with history [...] () 250 mls @ 15 mls/hr IV .[id number] PRN PRN Reason: Additional IVPB Infusion Sodium Chloride () 250 mls @ 15 mls/hr IV .[id number] PRN PRN Reason: Saline Flush Ceftriaxone Sodium (Rocephin) 1 gm in 50 mls @ 100 mls/hr IV Q24H SAUD Azithromycin 500 mg/ Dextrose 255 mls @ 250 mls/hr IV Q24H SAUD Melatonin (Melatonin 3 Mg Tablet) 3 mg PO QHS PRN PRN PRN Reason: INSOMNIA Memantine (Memantine Hydrochloride 10 Mg Tablet) 10 mg PO BID [facility] Last Admin: 04/17/23 08:31 Dose: 10 mg Mirtazapine (Mirtazapine 15 Mg Tablet) 7.5 mg PO QHS [facility] Last Admin: 04/16/23 22:30 Dose: 7.5 mg Nutritional Formula (Lactose Free) (Ensure Plus High Protein 120 Ml Liquid) 120ml PO 4X/DAY [facility] Last Admin: 04/17/23 13:58 Dose: 120 ml Ondansetron HCl (Ondansetron 4 Mg/2 Ml Vial) 4 mg IV Q8H PRN PRN PRN Reason: NAUSEA/VOMITING Pramipexole Dihydrochloride (Pramipexole Di-Hcl 0.5 Mg Tablet) 0.5 mg PO QHS [facility] Last Admin: 04/16/23 22:31 Dose: 0.5 mg Prochlorperazine Edisylate (Prochlorperazine 10 Mg/2 Ml Vial) 5 mg IV Q4H PRN PRN PRN Reason: Breakthrough nausea/vomiting Propranolol HCl (Propranolol 40 Mg Tablet) 40 mg PO 0600 [facility] Last Admin: 04/17/23 04:09 Dose: Not Given Propranolol HCl (Propranolol 10 Mg Tablet) 20 mg PO 1200,1700 [facility] Last Admin: 04/17/23 12:48 Dose: 20 mg Senna/Docusate Sodium (Senna/Docusate Sodium 1 Tablet) 2 tablet PO BID PRN PRN PRN Reason: Constipation Sodium Chloride (0.9% Saline Lock 10 Ml Syringe) 10 - 40 ml IV UD PRN PRN Reason: SALINE FLUSH Tramadol HCl (Tramadol 50 Mg Tablet) 50 mg PO Q8H PRN PRN PRN Reason: Pain Score 4-10 Charges/Coding Visit Charges Inpatient E&M: 23766 Subs Hosp L2 04/17/23 4766 <Electronically signed by Darinel Carlos MD> Cosigner Signature (if applicable): CC: ~ Signed [facility] Work Phone: 1(156) 362-665111-03-2023 History and physical note Author Karon Nunes [facility] April 16, 2023 10:33pm Note Date/Time April 16, 2023 7 :37pm [facility] Medical Records Department [address] [place] [address] H&P Exam - Hospitalist 04/16/231935 MR#: [id number] Acct: [id number] Name: SAPNA BULLARD Rep #:[id number] : 1940 83 From: Karon Nunes MD PCP: Dr. Nicci Lemus MD Status:ADM I N Location: [place] [address] HPI - General General Date of Admission: 04/16/23 Date of Service: 04/16/23 Chief Complaint: Confusion, weakness, debility. HPI Narrative The patient is an 83 y/o F w/ PMHx: Essential tremor, Allergic rhinitis, GERD, Chronic normocytic anemia/Fe deficiency anemia, Anxiety and Depression, Dementiaunclear type with unclear behavioral disturbance history, Former tobacco use whopresents to the [facility] ED on 04/16/23 with history [...] details: PT frequency: 1-2 times per week herrera/yarsanism: Jewish seatbelt use: always ROS Review of Systems [...] 80.3 H, Lymph % (Auto) 10.8 L, Woods % (Auto) 8.0, Eos % (Auto) 0.1, [...] Sl. Cloudy, Urine pH 7.0, Ur Specific [place] 1.010, Urine Protein 15 H, Urine Glucose [...] history, Former tobacco use whopresents to the [facility] ED on 04/16/23 with history [...] 16 minutes. Charges/Coding Visit Charges Inpatient E&M: 46459 Init Hosp L3 Procedures Hospitalists Procedures: 93066 Advncd Care Plan 30 Min 04/16/232232 <Electronically signed by Karon Nunes MD> Cosigner Signature (if applicable): CC: Dr. Karon Nunes MD; Dr. Nicci Lemus MD~ Signed [facility] Work Phone: 1(678) 896-657311-02-2023 Discharge summary Author Nicholas Cohen [facility] April 16, 2023 9:08pm Note Date/Time April 16, 2023 7 :09pm [facility] Medical Records Department [address] [place] [address] Emergency Department Summary 04/16/23 MR#: [id number] Acct: [id number] Name: SAPNA BULLARD Rep #:[id number] : 1940 83 From: Nicholas Cohen DO PCP: Dr. Nicci Lemus MD Status:ADM I N Location: [place] [address] HPI History of Present Illness Chief Complaint: [...] or short of breath. She complainsof dysuria. [facility] Medical History Acid reflux Acute UTI [...] details: PT frequency: 1-2 times per week herrera/yarsanism: Jewish seatbelt use: always ROS ROS ED Constitutional [...] 80.3 H Lymph % (Auto) 10.8 L Woods % (Auto) 8.0 Eos % (Auto) 0.1 [...] Sl. Cloudy Urine pH 7.0 Ur Specific [place] 1.010 Urine Protein 15 H Urine Glucose [...] problems, contact your Primary Care Provider. Call [facility] ([phone]) or report to the closest Emergency Room. Call 911 if necessary. 04/16/232107 <Electronically signed by Nicholas Cohen DO> Cosigner Signature (if applicable): CC: Dr. Nicci Lemus MD ~ Signed [facility] Work Phone: 1(560) 435-790609-03-2022 Hospital Discharge instructions Additional Instructions Recommend repeat basic metabolic panel in 3 to 5 days to assess BUN and creatinine [facility] Work Phone: Consult note Author Tanya Cha [facility] April 23, 2023 1:32pm Note Date/Time April 23, 2023 1 :32pm [facility] Medical Records Department [address] [place] [address] Counseling Note - Pharmacy 04/23/23 1332 MR#: [id number] Acct: [id number] Name: SAPNA BULLARD Rep #:[id number] : 1940 83 From: Tanya Cha PCP: Dr. Nicci Lemus MD Status:DIS I N Y Location: [place] [address] [place] Med Reconciliation Pharmacy Service has performed discharge medication reconciliation for this patient upon transfer to [place] The patient's discharge medication list was reviewed [...] Signature (if applicable): Date CC: ~ Signed [facility] Work Phone: Discharge summary Author John Johnston [facility] April 23, 2023 11:48am Note Date/Time April 23, 2023 1 1:38am [facility] Medical Records Department [address] [place] [address] Instructions for Home/Discharge Instructions 04/23/23 1138 MR#: [id number] Acct: [id number] Name: SAPNA BULLARD Rep #:[id number] : 1940 83 From: John Johnston DO [...] Provider: Nicci Lemus Consulting Providers: Karon Nunes; Drainel Carlos; Pravin Cruz Discharge Orders/Prescriptions Prescriptions: New [...] Up: Lalo Palm DO [Med Staff - [employer]] - Within 1 Month Nicci Lemus MD [Primary Care Provider] - Disposition Disposition (needs filled in before D/C Order can be placed): Assisted Living 04/23/23 1148<Electronically signed by John Johnston DO>John Johnston DO CC: Dr. Karon Nunes MD; Dr. Nicci Lemus MD; Dr. Pravin Cruz MD; Dr. Darinel Carlos MD ~ Signed [facility] Work Phone: Discharge summary Author [facility] Note Date/Time February 19, 2025 12:27pm [facility] Medical Records Department [address] [place] [address] Instructions for Home/Discharge Instructions 02/19/25 1226 MR#: [id number] Acct: [id number] Name: SAPNA BULLARD Rep #:[id number] : 1940 85 From: Felicia Paniagua MD [...] Care Provider: Genevieve Wu Consulting Providers: Liudmila Mroin Instructions Patient Instructions: Diabetes: Cognitive Changes, Delirium [...] MD; Dr. Liudmila Morin MD ~ Signed [facility] Work Phone: Evaluation note* Diagnosis Onset Date Resolution Status Cognitive decline acute Essential tremor chronic GERD (gastroesophageal reflux disease) chronic Low back pain chronic Acute hypokalemia acute Acute UTI acute Dehydration acute Encephalopathy acute Fall acute Rhabdomyolysis acute Essential tremor chronic [facility] Work Phone: Evaluation note* Diagnosis Onset Date [...] infection acut e Vitamin D deficiency acute [facility] Work Phone: Evaluation note* Diagnosis Onset Date Resolution Status Essential tremor chronic Acute hypokalemia resolved Dehydration resolved Encephalopathy resolved Allergic rhinitis acute Debility acute Essential tremor acute Insomnia acute Iron deficiency anemia acute Osteoporosis acute Restless leg syndrome acute Vitamin D deficiency acute Encephalopathy resolved Hypokalemia resolved Rhabdomyolysis resolved Urinary tract infection reso lved Dementia chronic Fatigue chronic [facility] Work Phone: Evaluation note* Diagnosis Onset Date Resolution Status Anxiety chronic Vitamin D deficiency chronic Urinary tract infection none active UTI (urinary tract infection) acute [facility] Work Phone: Evaluation note* Diagnosis Onset Date Resolution Status UTI (urinary tract infection) resolved Anxiety chronic Vitamin D deficiency chronic [facility] Work Phone: Evaluation note* Diagnosis Onset Date Resolution Status Anxiety chronic Vitamin D deficiency chronic Urinary tract infection none active UTI (urinary tract infection) resolved [facility] Work Phone: History and physical note Author Liudmila Morin [facility] Note Date/Time February 14, 2025 3:22pm [facility] Medical Records Department [address] [place] [address] H&P Exam - Hospitalist 02/14/25 1511 MR#: [id number] Acct: [id number] Name: SAPNA BULLARD Rep #:[id number] : 1940 85 From: Liudmila Morin MD PCP: Dr. Genevieve Wu MD Status:A DM IN Location: [id number] HPI - General General Date of Admission: 02/14/25 Date of Service: 02/14/25 Chief Complaint: Altered mental status, weakness HPI Narrative SAPNA BULLARD, is a 85-year-old female history of GERD, dementia, essential tremor,restless leg syndrome who presented to [facility] ED 02/14/[address] [facility] for confusion, weakness, stool and [...] up. Unable to obtain any further history [facility] Medical History (Updated 02/14/25 @ 15:21 [...] Unknown History gram-2.25 kcal/mL oral liquid ([facility]) propranolol 20 mg tablet 20 mg [...] details: PT frequency: 1-2 times per week herrera/yarsanism: Jewish seatbelt use: always ROS ROS Narrative Unable [...] (Auto) 74.1 H, Lymph % (Auto)11.8 L, Woods % (Auto) 12.2 H, Eos % (Auto) [...] Clarity Clear, Urine pH 6.0, Ur Specific [place] 1.015, Urine Protein Negative, Urine Glucose (UA) [...] 2. Suggestion of COPD. Reading Location: [facility] Assessment & Plan Assessment/Plan (1) Community [...] Morin MD Charges/Coding Visit Charges Inpatient E&M: 76074 Init Hosp L2 02/14/25 1522 <Electronically signed by Liudmila Morin MD> Cosigner Signature (if applicable): CC: Dr. Genevieve Wu MD; Dr. Liudmila Morin MD~ Signed [facility] Work Phone: Reason for referral (narrative)No reason for referral information [facility] Work Phone: Reason for Referral Status Reason Specialty Diagnoses / Procedures Referred By Contact Referred To Contact Authorized Radiology Diagnoses Other closed displaced fracture of distal end of left humerus, initial encounter Procedures CT ELBOW LEFT WO CONTRAST Gerson Adamson MD 1 [facility] [address] [place] [id number] Assessments Diagnosis Other closed displaced fracture of [...] Date/ Time Name of Medical Power of Culinary Artist annette bullard December 10, 2021 8:22pm Living Will Yes December 10, 2021 8:22pm Power of Culinary Artist Yes December 10 8:22pm Advance Directive Response Recorded Date/ Time Name of Medical Power of Culinary Artist Annette Bullard December 11, 2021 1:38am Living Will Yes December 11, 2021 1:38am Power of Culinary Artist Yes December 11 1:38am Advance Directive Response Recorded Date/ Time Name of Medical Power of Culinary Artist Annette Bullard December 11, 2021 1:38am Name of Medical Power of Culinary Artist Annette Bullard December 13, 2021 4:16pm Living Will Yes December 17, 2021 5 :14pm Power of Culinary Artist No December 17, 2021 5:14pm Advance Directive Response Recorded Date/ Time Name of Medical Power of Culinary Artist Annette Bullard December 11, 2021 1:38am Name of Medical Power of Culinary Artist Annette Bullard December 13, 2021 4:16pm Name of Medical Power of Culinary Artist son February 15, 2022 1:17pm Living Will Yes February 15, 2 022 1:17pm Power of Culinary Artist Yes February 15, 2022 1:17pm Advance Directive Response Recorded Date/ Time Name of Medical Power of Culinary Artist Annette Bullard April 16, 2023 8:33pm Living Will Yes April 16 8:33pm Power of Culinary Artist Yes April 16, 2023 8:33pm Advance Directive Response Recorded Date/ Time Living Will Yes April 16 9:33pm Do you have a Healthcare Power of Culinary Artist? Yes April 16, 2023 9:33pm Advance Directive Response Recorded Date/ Time Do you have a Healthcare Power of Culinary Artist? Yes February 14, 2025 3:37pm Name of Medical Power of Culinary Artist thaddeus bullard son February 14, 2025 3:37pm [...] M FU July 19, 2024 9 :51am [facility] July 5:00am J98.4 Other [...] M FU July 19, 2024 9 :51am [facility] July 5:00am J98.4 Other disorders of lung July 162024 5:50pm [facility]OW[facility] August 29, 2024 5:0 0am Lung Nodule September 08, 2024 11: 20am LABWORK October 03, 2024 5:[address] (Self) October 05, 2024 9:0 0am [facility] October 31, 2024 4:0 0am CHEST PAIN November 08, 2024 8:58a m Chief Complaint Admit Date [facility] July 5:00am J98.4 Other disorders of lung July 162024 5:50pm [facility] August 29, 2024 5:0 0am Lung Nodule September 08, 2024 11: 20am LABWORK October 03, 2024 5:[address] (Self) October 05, 2024 9:0 0am [facility] October 31, 2024 4:0 0am [...] CT (Self) October 05, 2024 9:0 0am [facility] WORK October 31, 2024 4:0 0am [...] CT (Self) October 05, 2024 9:0 0am [facility] LAB WORK October 31, 2024 4:0 0am [...] CT (Self) October 05, 2024 9:0 0am [facility] WORK October 31, 2024 4:0 0am [...] NEW CONCERN October 27, 2024 5:30p m [facility] WORK October 31, 2024 4:0 0am [...] NEW CONCERN October 27, 2024 5:30p m [facility] WORK October 31, 2024 4:0 0am [...] 5:00 am PNEUMONIA AND METABOLIC ENCEPHALOPATHY S [facility] 2024 3:11pm Reason for Visit Admit Date Dementia November 29, 2024 10:0 5am Essential tremor November 29, 2024 10:0 5am Restless leg syndrome November 29, 2024 10 :05am Vitamin D deficiency November 29, 2024 10: 05am Abnormal chest CT December 07, 2024 9:10 am Community acquired pneumonia February 142024 3:11pm Chief Complaint Admit Date NEW CONCERN October 27, 2024 5:30p m [facility] WORK October 31, 2024 4:0 0am [...] am LABWORK January 02, 2025 5:00 am [facility] WORK January 30, 2025 5:00am PNEUMONIA [...] 2025 2:44pm LABWORK February 21, 2025 5:00am [facility] WORK February 27 5:00am [facility] LAB WORK March 07 4:05am Additional Source Comments INFORMATION SOURCE (unrecogn ized section and content) DATE CREATED AUTHOR 07/07/2020 [facility] DATE CREATED AUTHOR AUTHOR'S ORGANIZ ATION 12/16/2022 [facility] ([place]) DATE CREATED AUTHOR AUTHOR'S ORGANIZ ATION 02/03/[address] [facility] DATE CREATED AUTHOR AUTHOR'S ORGANIZ ATION 04/26/2025 [...] Provider, Referr ing Provider Active Elliott Grigsby CHIP PERSON, CHIP PERSON-C Attending Provider Active Team Status: Active Member [...] Lalo Palm DO Primary Care Provider Active ADITI DowneyC Attending Provider Active Team Status: Inactive Member [...] End: July 04, 2024 Barbara Castro NP, CHIP PERSON-C Attending Provider Active Start: July 04, 2024 [...] End: November 21, 2024 Barbara Castro NP, CHIP PERSON-C Attending Provider Active Start: November 21, 2024 [...] End: October 27, 2024 Barbara Castro NP, CHIP PERSON-C Attending Provider Active Start: October 27, 2024 [...] 2024 End: October 27, 2024 Barbara Castro CHIP PERSON CHIP PERSON-C Attending Provider Active Start: October 27, 2024 [...] End: November 21, 2024 Barbara Castro NP CHIP PERSON-C Attending Provider Active Start: November 21, 2024 [...] 2024 End: November 21, 2024 Barbara Castro CHIP PERSON, CHIP PERSON-C Attending physician Active Start: November 21, 2024 [...] 2025 End: February 14, 2025 Barbara Castro NP, CHIP PERSON-C Attending physician Active Start: February 14, 2025 [...] End: February 20, 2025 Barbara Castro NP, CHIP PERSON-C Attending physician Active Start: February 20, 2025 [...] BE BASED ON THE PRIMARY CLINICAL RECORDS. [facility] [email or web address] provides no warranty or guarantee of the accuracy or completeness of information in this document.
[2025-05-29 07:59] LABS: AST(SGOT) 23 U/L (<=31); Alanine Aminotransfer ALT/SGPT 8 U/L (<=34); Albumin, Serum 3.8 g/dL (3.4-4.8); Alkaline Phosphatase 131 U/L (35-104); Bilirubin, Direct 0.12 mg/dL (0.00-0.30); Globulin 3.3 g/dL (2.2-4.2); Vitamin D,25 Hydroxy 42.8 ng/mL (30-100)
== END ==
LOC: OLS.WHLTSB 04:00
PROVIDERS: PCP Internal Medicine; Referring Provider Internal Medicine; Visit Provider Internal Medicine
DX: E43 Unspecified severe protein-calorie malnutrition (principal)
CPT/HCPCS: 36415; 80076; 82306